=== PATIENT | female | born 1940 | race Caucasian/White ===

== ENCOUNTER 2023-01-05 11:31 | Outpatient (OUT) | payer MEDICARE, SELFPAY ==
--- NOTE | 2023-01-05 11:46 | CT_ITS ---
[address] [address] Patient Name: CUATE GOODMAN MRN: [id number] date: 1940 Sex: F Assigned Patient Location: LAB Current Patient Location: LAB Accession/Order Number: [id number] Exam Date: 01/05/2023 13:00 Report Date: 01/05/2023 15:45 At the request of: JASON MORALES Procedure: CT abdomen pelvis w con EXAMINATION: CT abdomen pelvis w con HISTORY: Intra-abdominal and pelvic swelling, mass and lump R19.00 ; palpable lump above right iliac crest for one week COMPARISON: No relevant comparison available. TECHNIQUE: Axial, Coronal, and Sagittal images were obtained without and/or with IV contrast as indicated by examination type. Dose reduction techniques were achieved by using automated exposure control and/or adjustment of mA and/or kV according to patient size and/or use of iterative reconstruction technique. FINDINGS: LUNG BASES: Bilateral pleural effusions 0.9 cm in thickness on right, 1.7 cm on left. Small amount of pericardial fluid. LIVER: No enlargement, atrophy, suspicious density, or significant focal lesion. BILIARY: Cholecystectomy. PANCREAS: No lesion, fluid collection, or abnormal duct dilatation. SPLEEN: No enlargement or focal lesion. ADRENALS: No mass or enlargement. KIDNEYS: Absent right kidney. Nonobstructing 12 x 8 x 5 mm stone within left kidney. BOWEL/MESENTERY: Marked diverticulosis of descending and sigmoid colon without acute inflammatory changes. No visible mass, obstruction, or bowel wall thickening. AORTA/VASCULAR: No aneurysm or dissection. Filter within the IVC. RETROPERITONEUM: No mass or adenopathy. LYMPH NODES: No adenopathy. URINARY BLADDER: No visible focal wall thickening, lesion, or calculus. PELVIC ORGANS: No visible mass. Pelvic organs appropriate for patient age. ABDOMINAL WALL: No mass or hernia. Skin surface marker localizing the patient's palpable lump to the posterior lateral right abdominal wall/flank; no appreciable mass or lipoma. BONES: Right hip replacement. 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 OTHER: Negative. IMPRESSION: 1.Patient's palpable lump appears to correspond to an area of greater fat within the posterior lateral right abdominal wall/flank. No mass, hernia, fluid collection. 2.Bilateral pleural effusions and small pericardial effusion of uncertain etiology. 3. Nonobstructing left nephrolithiasis. Absent right kidney. 4. Marked diverticulosis of distal colon. 5. Marked degenerative joint disease of the left hip. Electronically authenticated by: EYAD FREITAS Date: 01/05/2023 15:45
[2023-01-05 11:51] LABS: BUN Creatinine Ratio 16.7; Calcium 9.4 mg/dL (8.5-10.1); Carbon Dioxide 33.2 mmol/L (21.0-32.0); Chloride 102 mmol/L (98-107); Estimated GFR (African America >60 (>=60); Estimated GFR (Non-African Ame >60 (>=60); Glucose 101 mg/dL (74-106); Potassium 4.2 mmol/L (3.5-5.1); Sodium 141 mmol/L (136-145)
== END 2023-01-05 11:32 ==
LOC: LAB 11:31
PROVIDERS: PCP Family Medicine; Visit Provider Family Medicine
DX: R19.00 Intra-abdominal and pelvic swelling, mass and lump, unspecified site (principal); J90 Pleural effusion, not elsewhere classified; I31.39 Other pericardial effusion (noninflammatory); N20.0 Calculus of kidney; Z90.5 Acquired absence of kidney; K57.30 Diverticulosis of large intestine without perforation or abscess without bleeding; M16.12 Unilateral primary osteoarthritis, left hip
CPT/HCPCS: 36415; 74177; 80048; Q9967

== ENCOUNTER 2023-12-29 09:16 | Outpatient (OUT) | payer MEDICARE, SELFPAY ==
--- NOTE | 2023-12-29 09:26 | CA_ITS ---
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 DESCRIPTION: COMPLETE ECHOCARDIOGRAM Real-time transthoracic echocardiography with 2D, M-mode, spectral and color flow Doppler performed. QUALITY: Technical quality was adequate. LEFT VENTRICLE: Normal chamber size. Moderate concentric left ventricular hypertrophy. LV EF: Lower limits of normal left ventricular ejection fraction, (50%). DIASTOLIC: Diastolic function is indeterminate. ATRIAL SEPTUM: LEFT ATRIUM: Normal chamber size. RIGHT ATRIUM: Mild dilatation. RIGHT VENTRICLE: Normal chamber size. Normal right ventricular systolic function. TRICUSPID VALVE: Normal mobility and thickness. No stenosis with trivial regurgitation. Unable to assess right-sided pressures due to lack of measurable tricuspid regurgitation. MITRAL VALVE: Mildly thickened with normal mobility. No evidence of mitral valve stenosis. Mild mitral annular calcification. Mild mitral regurgitation. AORTIC VALVE: Grossly normal. Normal leaflet mobility. No evidence of aortic valve stenosis. No aortic regurgitation. AORTIC ROOT: Normal diameter and appearance, measuring 3.6 cm. The ascending aorta is mildly to moderately dilated measuring 4.0 cm. PULMONIC VALVE: Normal thickness and mobility. No stenosis. No regurgitation. PERICARDIUM: No evidence of pericardial effusion. IVC: Collapses with inspirations. Normal size PLEURA: CONCLUSION: 1. Moderate concentric left ventricular hypertrophy with low normal systolic function. LVEF is estimated at 50%. 2. Normal right ventricular size and systolic function. 3. No significant valvular dysfunction. 4. Mild to moderate dilatation of the ascending aorta measuring 4.0 cm. Adult Echocardiography Procedure Report Left Ventricle LVEDD (3.7 - 5.6 cm): 3.95 cm LVESD (2.2 - 4.0 cm): 2.89 cm LVIVS thickness (0.6 - 1.2 cm): 1.42 cm LVPW thickness (0.5 - 1.0 cm): 1.44 cm e': 0.05 m/s E - e': 10.80 LVOT Max Gradient: 1.54 mm[Hg] LVOT Area (cm2): 0.62 m/s Peak Velocity (LVOT): 0.62 m/s Mean Velocity (LVOT): 0.48 m/s LVOT Diameter 2.40 cm Left Ventricular Ejection Fraction: 50 % Left Atrium LA Volume Index (2D A2C): 26.16 ml/m2 Left Atrium Systolic Dimension: 3.70 cm Mitral Valve MV E to A Ratio: 0.63 Mitral Valve A-Wave Peak Velocity: 0.79 m/s Mitral Valve E-Wave Peak Velocity: 0.50 m/s Right Ventricle RV Internal Diastolic Dimension: 4.38 cm Aorta AO Root Diam: 3.56 cm Ascending Ao Diam: 3.96 cm Aortic Valve AoV Area (Peak Bill): 2.09 cm2, 2.20 cm2 AoV Area (VTI): 2.10 cm2, 2.19 cm2 Peak Velocity(Antegrade Flow): 1.27 m/s, 1.40 m/s Peak Gradient(Antegrade Flow): 6.49 mm[Hg], 7.87 mm[Hg] Mean Velocity(Antegrade Flow): 0.91 m/s, 0.99 m/s Mean Gradient(Antegrade Flow): 3.81 mm[Hg], 4.48 mm[Hg] Velocity Time Integral: 23.25 cm, 25.22 cm Tricuspid Valve Peak Velocity (Regurgitant Flow): 1.56 m/s, 1.65 m/s Pulmonic Valve Mean Gradient: 1.12 mm[Hg], 1.38 mm[Hg], 2.19 mm[Hg] Mean Velocity: 0.49 m/s, 0.57 m/s, 0.72 m/s Peak Velocity: 0.77 m/s Peak Gradient: 2.05 mm[Hg], 2.05 mm[Hg], 3.05 mm[Hg] Right Atrium Right Atrium Systolic Pressure: 49.93 ml, 49.93 ml Dictated by: Andrew Champion M.D. on 12/29/2023 at 18:28 Approved by: Andrew Champion M.D. on 12/29/2023 at 18:33
== END 2023-12-29 09:17 | disposition home or self-care (01) ==
PROVIDERS: PCP Family Medicine; Visit Provider Internal Medicine Cardiovascular Disease
DX: I71.21 Aneurysm of the ascending aorta, without rupture (principal)
CPT/HCPCS: 93306

== ENCOUNTER 2024-04-05 10:16 | Outpatient (OUT) | payer MEDICARE, SELFPAY ==
--- NOTE | 2024-04-05 | XR_ITS ---
The [address] [address] Patient Name: CUATE GOODMAN MRN: [id number] date: 1940 Sex: F Assigned Patient Location: [facility] Current Patient Location: [facility] Accession/Order Number: [id number] Exam Date: 04/05/2024 10:35 Report Date: 04/05/2024 13:23 At the request of: JASON MORALES Procedure: XR DEXA axial skeleton EXAMINATION: XR DEXA axial skeleton, 04/05/2024 10:35 AM EDT HISTORY: asymptamatic menopausal state COMPARISON: [place] 8 TECHNIQUE: Dual-energy X-ray absorptiometry (DEXA) bone density study performed for the axial skeleton. HISTORY: asymptamatic menopausal state FINDINGS: Bone mineral density of the AP spine L1-L4 measures 1.169 g/sq cm. T score -0.1. Normal Lowest bone mineral densities in the left forearm radius measuring 0.45 g/sq cm. T score -4.0. Osteoporosis XR/XR DEXA axial skeleton IMPRESSION: Osteoporosis. High fracture risk Pharmacologic treatment recommendations * No uniform recommendation applies to all patients. Management plans must be individualized. * Consider initiating pharmacologic treatment in postmenopausal women and men >= 50 years of age who have the following: Primary fracture prevention: * T-score <= - 2.5 at the femoral neck, total hip, lumbar spine, 33% radius (some uncertainty with existing data) by DXA. * Low bone mass (osteopenia: T-score between - 1.0 and - 2.5) at the femoral neck or total hip by DXA with a 10-year hip fracture risk >= 3% or a 10-year major osteoporosis-related fracture risk >= 20% (i.e., clinical vertebral, hip, forearm, or proximal humerus) based on the [place]-adapted FRAXregistered model. Secondary fracture prevention: * Fracture of the hip or vertebra regardless of BMD [4, 5]. * Fracture of proximal humerus, pelvis, or distal forearm in persons with low bone mass (osteopenia: T-score between - 1.0 and - 2.5). The decision to treat should be individualized in persons with a fracture of the proximal humerus, pelvis, or distal forearm who do not have osteopenia or low BMD [12, 13]. Mariza MS, Khanh SL, Paulo KL, Tao EM, Funmilayo KG, Lynch AJ, Mac ES. The clinician's guide to prevention and treatment of osteoporosis. Osteoporos Int. 2021;33(10):4453-1665. doi: 10.1007/l40648-258-67982-q. Epub 2021Nov 13. Erratum in: Osteoporos Int. 2021Feb 12;: PMID: [id number]; PMCID: [id number]. Electronically authenticated by: KIMBER MALLOY Date: 04/05/2024 13:23
== END 2024-04-05 10:17 | disposition home or self-care (01) ==
LOC: RAD 10:16
PROVIDERS: PCP Family Medicine; Visit Provider Family Medicine
DX: M81.0 Age-related osteoporosis without current pathological fracture (principal); Z78.0 Asymptomatic menopausal state
CPT/HCPCS: 77080

== ENCOUNTER 2024-05-01 17:46 | Observation (INO) | payer MEDICARE, SELFPAY ==
[2024-05-01] VITALS (14 sets, daily range): BP systolic 122–154; BP diastolic 73–94; PULSE 79–94; TEMP 36.6–36.8; O2SAT 91–98; BMI 26.9; BMI 41.5
--- NOTE | 2024-05-01 17:53 | ECG_ITS ---
The [facility] Test Date: 2024-05-01 Pat Name: CUATE GOODMAN Department: Room: - Gender: Female [employer]: : 1940 Requested By: JASON MORALES Order Number: [id number] Reading MD: RADHA NATHAN Measurements Intervals [place] Rate: 88 P: -6 AR: 198 QRS: 54 QRSD: 140 T: 36 QT: 408 QTc: 453 Interpretive Statements 1100 Sinus rhythm 1470 with occasional supraventricular premature complexes 1574 with frequent ventricular premature complexes 2450 Right bundle branch block 9150 abnormal ECG Compared to ECG 11/09/2022 06:31:59 Ventricular premature complex(es) now present Electronically Signed On 05-01-2024 22:46:31 EDT by RADHA NATHAN
--- NOTE | 2024-05-01 17:53 | XR_ITS ---
The [address] [address] Patient Name: CUATE GOODMAN MRN: [id number] date: 1940 Sex: F Assigned Patient Location: ER Current Patient Location: ED.MAIN Accession/Order Number: [id number] Exam Date: 05/01/2024 18:13 Report Date: 05/01/2024 19:04 At the request of: YUMIKO LUIS Procedure: XR chest 1V EXAM: XR chest 1V at 1805 hours HISTORY: chest pain COMPARISON: 01/20/2024 TECHNIQUE: AP upright portable chest x-ray FINDINGS: The heart is not enlarged, in part due to improved depth of inspiration. There is mild prominence of the central pulmonary vasculature. There is been interval clearing of the left lung base. No acute infiltrate, effusion or pneumothorax is identified. The osseous structures are grossly intact. XR/XR chest 1V IMPRESSION: Interval clearing of the left lung base, and there is no evidence of an acute infiltrate or cardiac decompensation. Electronically authenticated by: OLIVIA CHILDRESS Date: 05/01/2024 19:04
--- NOTE | 2024-05-01 18:02 | PC.NURSE ---
pt states had chest pain substernal, radiated to jaw that felt like pressure. pt states chest pain has now resolved and has no pain.
[2024-05-01 18:07] LABS: Basophils Absolute Auto 0.1 10^3/uL (0.0-0.1); Basophils Percent Auto 0.9 % (0.2-2.0); Eosinophils Absolute Auto 0.1 10^3/uL (0.0-0.7); Eosinophils Percent Auto 1.9 % (0.9-7.0); Hematocrit 39.9 % (36.0-48.0); Hemoglobin 12.5 g/dL (12.0-16.0); Immature Granulocytes Abs Auto 0.01 10^3/uL (0.00-0.03); Immature Granulocytes Pct Auto 0.2 % (0.0-0.5); Lymphocytes Absolute Auto 1.8 10^3/uL (1.2-3.8); Lymphocytes Percent Auto 31.3 % (20.5-60.0); Mean Corpuscular HGB Conc 31.3 g/dL (29.9-35.2); Mean Corpuscular Hemoglobin 30.4 pg (26.7-34.0); Mean Corpuscular Volume 97.1 fL (81.0-99.0); Mean Platelet Volume 9.8 fL (9.5-13.5); Monocytes Absolute Auto 0.6 10^3/uL (0.3-0.8); Monocytes Percent Auto 10.6 % (1.7-12.0); Neutrophils Absolute Auto 3.2 10^3/uL (1.4-6.5); Neutrophils Percent Auto 55.1 % (43.0-75.0); Platelet Count 298 10^3/uL (150-450); Red Blood Count 4.11 10^6/uL (4.20-5.40); Red Cell Distribution Width 14.2 % (11.0-15.0); White Blood Count 5.9 10^3/uL (4.0-11.0)
--- NOTE | 2024-05-01 18:08 | ED_ITS ---
HPI - Chest Pain General Chief Complaint: Chest Pain Stated Complaint: Chest Pain Time Seen by Provider: 05/01/24 17:53 Source: patient Mode of arrival: ambulance Limitations: no limitations History of Present Illness HPI narrative: 83-year-old female to the emergency department chief complaint of chest pain. Patient reports that approximately an hour prior to arrival she developed some chest pain while seated and sewing. She reports that it was a difficult to describe pain in her chest that radiated into her left-sided jaw. She has never had anything like this before. She rates it a 8 out of 10. There was no provoking or palliating features. No nausea or vomiting. No abdominal pain. She did feel mildly short of breath during the episode. She denies any cardiac history. She reports a history of pulmonary embolism 2 years ago for which she takes Eliquis. She has not had a stress test or cardiac catheterization. She received aspirin from EMS. She reports that the symptoms resolved prior to arrival. Related Data Home Medications ?Medication ?Instructions ?Recorded ?Confirmed allopurinol 100 mg tablet 100 mg PO DAILY 05/01/24 05/01/24 apixaban 5 mg tablet (Eliquis) 5 mg PO Q12H 05/01/24 05/01/24 ferrous sulfate 325 mg (65 mg mg 05/01/24 iron) tablet (FeroSul) magnesium oxide 400 mg (241.3 mg 400 mg PO QDAY 05/01/24 05/01/24 magnesium) tablet omeprazole 20 mg capsule,delayed 20 mg PO .daily 05/01/24 05/01/24 release tolterodine 4 mg capsule,extended 4 mg PO Q24H 05/01/24 05/01/24 release 24 hr Allergies Allergy/AdvReac Type Severity Reaction Status Date / Time mophine AdvReac Severe Nausea Uncoded 05/01/24 17:53 Review of Systems ROS Status of ROS 10 or more systems reviewed and unremark able except as noted in history and below PFSH PFSH Social History Little interest or pleasure in doing things: not at all Feeling down, depressed, or hopeless: not at all Exam Narrative Exam Narrative: VITALS: I have reviewed the triage vital signs. GENERAL: Elderly female in no acute distress NEURO: Alert and oriented. Moves all extremities. Face is symmetric and expressive. EYES: PERRL. No scleral icterus or conjunctival injection. No discharge. HENT: Normocephalic, atraumatic. Hearing is grossly intact. Nares grossly patent and without discharge. Mucous membranes moist. NECK: No JVD. Patient moves neck without restriction. CARDIO: Rhythm regular. Normal rate. No murmur, rub, or gallop. Pulses equal bilaterally in the upper and lower extremity. No lower extremity edema. PULM: Lungs clear to auscultation in all [place]. No wheezes, rales, or rhonchi. No conversational dyspnea. No splinting, stridor, or accessory muscle use. GI/: Abdomen is soft and non-tender. Normoactive bowel sounds. EXTREMITIES: Symmetric muscle bulk. No joint swelling. No clubbing, cyanosis, or deformity. SKIN: Warm and dry. Normal turgor. No rash or lesions appreciated. PSYCH: Mood, affect, and interaction is appropriate to the setting. Constitutional Vital Signs, click to edit/add: Last Vital Signs Temp 98.2 F 05/01/24 17:49 Pulse 79 05/01/24 18:30 Resp 16 05/01/24 18:30 BP 144/85 H 05/01/24 18:30 Pulse Ox 94 L 05/01/24 18:30 O2 Del Method Room Air 05/01/24 17:49 Course Vital Signs Vital signs: Vital Signs Temperature 98.2 F 05/01/24 17:49 Pulse Rate 88 05/01/24 17:49 Respiratory Rate 18 05/01/24 17:49 Blood Pressure 154/94 H 05/01/24 17:49 Pulse Oximetry 98 05/01/24 17:49 Oxygen Delivery Method Room Air 05/01/24 17:49 Temperature 98.2 F 05/01/24 17:49 Pulse Rate 79 05/01/24 18:30 Respiratory Rate 16 05/01/24 18:30 Blood Pressure 144/85 H 05/01/24 18:30 Pulse Oximetry 94 L 05/01/24 18:30 Oxygen Delivery Method Room Air 05/01/24 17:49 MDM - Chest Pain MDM Narrative Medical decision making narrative: 83-year-old female to the emergency department with chief complaint of chest pain. Vital stable, the patient is afebrile. She is currently asymptomatic. Cardiac workup is initiated. Patient agrees with this plan. EKG without evidence of ischemia. Her initial troponin is negative. Care was signed out to Dr. Quintana. Heart Score for Major Cardiac Event History: Example factors for history - pattern of chest pain, onset, duration, relation with exercise, stress or cold, localization, concomitant symptoms. reaction to sublingual nitrates, [] Highly suspicious +2 [x] Moderately suspicious +1 [] Slightly suspicious 0 EKG: [] Significant ST-Depression +2 [x] Non specific repolarization disturbance +1 [] Normal 0 Age: [x] >= 65 +2 [] 45-65 + 1 [] <45 0 Risk Factors: (HLD, HTN, DM, Cigarette Smoking, Pos Family Hx, Obesity) [x] >3 risk factors or hx of atherosclerotic disease + 2 [] 1-2 risk factors + 1 [] No risk factors known 0 Troponin: [] >= 3X normal + 2 [] 1-3X normal + 1 x <= Normal 0 [] 0-3 Points 0.9 - 1.7% risk of major adverse cardiac event in 6 weeks [x] 4-6 Points 12-16.6% risk of major adverse cardiac event in 6 weeks [] 7-10 Points 50-65% risk of major adverse cardiac event in 6 weeks [] 0-3 Points with 2 sets of negative cardiac markers <1% risk of major adverse cardiac event in 30 days. Medical Records Data Attestation: I reviewed the patient's medical records. Lab Data Attestation: I reviewed the patient's lab results. Labs: Lab Results 05/01/24 Range/Units 17:56 WBC 5.9 (4.0-11.0) 10^3/uL RBC 4.11 L (4.20-5.40) 10^6/uL Hgb 12.5 (12.0-16.0) g/dL Hct 39.9 (36.0-48.0) % MCV 97.1 (81.0-99.0) fL MCH 30.4 (26.7-34.0) pg MCHC 31.3 (29.9-35.2) g/dL RDW 14.2 (11.0-15.0) % Plt Count 298 (150-450) 10^3/uL MPV 9.8 (9.5-13.5) fL Neut % (Auto) 55.1 (43.0-75.0) % Lymph % (Auto) 31.3 (20.5-60.0) % [place] % (Auto) 10.6 (1.7-12.0) % Eos % (Auto) 1.9 (0.9-7.0) % Baso % (Auto) 0.9 (0.2-2.0) % Neut # (Auto) 3.2 (1.4-6.5) 10^3/uL Lymph # (Auto) 1.8 (1.2-3.8) 10^3/uL [place] # (Auto) 0.6 (0.3-0.8) 10^3/uL Eos # (Auto) 0.1 (0.0-0.7) 10^3/uL Baso # (Auto) 0.1 (0.0-0.1) 10^3/uL Abs Immat Gran (auto) 0.01 (0.00-0.03) 10^3/uL Imm/Tot Granulo (auto) 0.2 (0.0-0.5) % PT 11.7 H (9.0-11.6) sec INR 1.12 APTT 29.1 (22.3-36.2) sec Sodium 139 (136-145) mmol/L Potassium 4.0 (3.5-5.1) mmol/L Chloride 104 (98-107) mmol/L Carbon Dioxide 28.0 (21.0-32.0) mmol/L Anion Gap 11.0 BUN 18.0 (7.0-18.0) mg/dL Creatinine 1.04 H (0.55-1.02) mg/dL Est GFR ( Amer) >60 (>=60 mL/min/1.73m^2) Est GFR (Non-Af Amer) 51 L (>=60 mL/min/1.73m^2) BUN/Creatinine Ratio 17.3 Glucose 103 (74-106) mg/dL Calcium 9.9 (8.5-10.1) mg/dL Total Bilirubin 0.2 (0.2-1.0) mg/dL AST 16 (15-37) U/L ALT 9 L (14-59) U/L Alkaline Phosphatase 120 H (46-116) U/L Troponin I High Sens 9.6 (4.0-51.3) pg/mL Total Protein 7.5 (6.4-8.2) g/dL Albumin 3.2 L (3.4-5.0) g/dL Globulin 4.3 g/dL Albumin/Globulin Ratio 0.7 ECG Data Attestation: I personally reviewed and interpreted this ECG as follows: (Normal sinus rhythm at a rate of 88. Right bundle branch block. No STEMI. Normal QTc) Discharge Plan Discharge Chief Complaint: Chest Pain Clinical Impression: Chest pain Patient Disposition: Still a Patient Prescriptions / Home Meds: No Action Eliquis 5 mg tablet 5 mg PO Q12H allopurinol 100 mg tablet 100 mg PO DAILY magnesium oxide 400 mg (241.3 mg magnesium) tablet 400 mg PO QDAY ferrous sulfate [FeroSul] 325 mg (65 mg iron) tablet omeprazole 20 mg capsule,delayed release(DR/EC) 20 mg PO .daily tolterodine 4 mg capsule,extended release 24hr 4 mg PO Q24H Print Language: Afghan Referrals: JASON MORALES DO [Primary Care Provider] - 1 week
--- OUTSIDE RECORDS SUMMARY | 2024-05-01 18:09 | XMS_ITS | CCD ---
Author Organization [facility] Care Team Providers Care Filer Finish Name Role Phone DR TIAN KUHN Primary Care Unavailable CUAUHTEMOC ., RIYA Attending Unavailable CUAUHTEMOC ., RIYA Admitting Unavailable WEST, DR KIMBER Lopez Consulting Unavailable ZIEBER, DR EYAD Hines Consulting Unavailable HAY ., DR STERN Consulting Unavailable KATKOSINDY Consulting Unavailable CUAUHTEMOC ., RIYA Consulting Unavailable KUHN, DR TIAN Krause Primary Care Unavailable KUHNTIAN Referring Unavailable KUHNTIAN HERRERA Primary Care Unavailable KUHNTIAN Referring Unavailable KUHNTIAN Primary Care Unavailable KUHNTIAN Referring Unavailable KUHNTIAN Primary Care Unavailable JR. BOO GEORGE C Attending Unavaila meagan BOO JR., GEORGE C Referring Unavaila meagan Boo Jr., DO, George Primary Care Provider Rajeev Arriaga DO, George Primary Care Provider CEFERINO QUIÑONEZ Attending Unavailable Kuhn Tian CIFUENTES Primary Care Provider [phone] Kuhn Tian CIFUENTES Primary Care Provider [phone] REBECCA, MOHAN Admitting Unavailable REBECCAROBERTAN Attending Unavailable REBECCA, MOHAN Referring Unavailable CONSULT, INFECTIOUS DISEASE Consulting Unav ailable TIAN KUHN Primary Care Unavailable TRUMAN BOO JR. Referring Unavailable TRUMAN BOO JR. Primary Care Unavailable ERIK HEREDIA Attending Unavailable PAIGE DAMON Attending Unavailable AVE MACKEY Referring Unavailable KUHN, TIAN Primary Care Unavailable SELF, SELF Referring Unavailable PAIGE DAMON Attending Unavailable KUHN, TIAN Primary Care Unavailable PAIGE DAMON Referring Unavailable PAIGE DAMON Attending Unavailable KUHN, TIAN Primary Care Unavailable SELF, SELF Referring Unavailable PAIGE DAMON Attending Unavailable KUHN TIAN Primary Care Unavailable PAIGE DAMON Attending Unavailable PAIGE DAMON Referring Unavailable KUHN, TIAN Primary Care Unavailable PAIGE DAMON Attending Unavailable PAIGE DAMON Referring Unavailable KUHN, TIAN Primary Care Unavailable GIOVANNYABHI Attending Unavailable ERIK HEREDIA Referring Unavailable KUHN, TIAN Primary Care Unavailable RAJEEV TRUMAN Alfonso [facility] Care Unavailable YAN, ERIK Referring Unavailable ERIK HEREDIA Attending Unavailable KUHN, TIAN Primary Care Unavailable ERIK HEREDIA Referring Unavailable ERIK HEREDIA Attending Unavailable ERIK HEREDIA Admitting Unavailable Allergies Allergy Classification Reported Allergen(s) Allergy Type Date of Onset Reaction(s) Facility (4 sources) Morphine; 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: [MORPHINE] Drug Allergy 7 [facility] (12 sources) oxyCODONE; 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: [OXYCODONE] Drug Allergy 7 Nausea and Vomiting [facility] (11 sources) Morphine Drug Allergy 7 Nausea and Vomiting [facility] (11 sources) Penicillins Propensity to adverse reactions to drug 4 [facility] Medications Current Medications Medication Drug Class(es) Dates Sig (Normalized) Sig (Original) acetaminophen 325 mg oral tablet (16 sources) Start: 01-11-2024 take 2 tablets by mouth every four hours as needed Acetaminophen 325 MG tablet Take 2 tablets by mouth every 4 hours as needed for Mild Pain. 50 tablet 1 01/11/2024 Active Start: 01-11-2024 End: 02-11-2024 take 650 mg by mouth every four hours as needed End: 01-11-2024 Acetaminophen (TYLENOL 8 RONALDO R ARTHRITIS PAIN PO) Take by mouth. 01/11/2024 Discontinued (Stop Taking at Discharge) Acetaminophen (T YLENOL 8 HOUR ARTHRITIS PAIN PO) Take by mouth. Active cholecalciferol 0.025 mg oral capsule (12 sources) Vitamin D Cholecalciferol (Vitamin D-3) 25 MCG (1000 UT) capsule Take by mouth. Active clarithromycin 500 mg oral tablet (2 sources) Macrolide Antimicrobial Start: 024 End: 025 take 1 tablet by mouth every hour clarithromycin 500 MG tablet Take 1 tab by mouth 1 hour prior to dental procedures 2 tablet 1 02/02/2024 02/01/2025 Active docusate sodium 100 mg oral capsule (15 sources) Start: End: take 1 capsule by mouth twice daily Docusate 100 MG capsule Take 1 capsule by mouth 2 times daily. 60 capsule 01/11/2024 Active ferrous sulfate 325 mg oral tablet (9 sources) Start: take 1 tablet by mouth once daily ferrous sulfate 325 (65 Fe) MG tablet Take 1 tablet by mouth daily. 90 tablet 02/11/2024 Active Start: 01-21-2024 End: 02-11-2024 magnesium oxide 400 mg oral tablet (12 sources) Start: 10-02-2023 take 1 tablet by mouth twice daily magnesium oxide 400 (240 Mg) MG Take 1 tablet by mouth 2 times daily. 10/02/2023 Active Multiple Vitamin (multivitamin) tablet (9 sources) take 1 tablet by mouth once daily Multiple Vitamin (multivitamin) tablet Take 1 tablet by mouth daily. Suspended take 1 tablet by mouth once kayden y Multiple Vitamin (multivitamin) tablet Take 1 tablet by mouth daily. Active omeprazole 20 mg delayed release oral capsule (12 sources) Proton Pump Inhibitor Start: 10-02-2023 omeprazo le [address] capsule 1 capsule daily. qam 10/02/2023 Active 24 hr tolterodine tartrate 4 mg extended release oral capsule (17 sources) Cholinergic Muscarinic Antagonist Start: 01-12-2024 End: 02-11-2024 Start: 10-02-2023 End: 02-10-2024 take 1 capsule by mouth once daily tolterodine 4 MG Cap SR 24HR Take 1 capsule by mouth daily. 30 capsule 02/10/2024 Active Start: 10-02-2023 tolterodine 4 MG Cap SR 24HR 1 capsule. 10/02/2023 Active vitamin b12 1 mg oral tablet (12 sources) Vitamin B12 cyanocobalamin 1 000 MCG tablet Take 5 tablets by mouth. Active Completed/Discontinued Medications Medication Drug Class(es) Dates Sig (Normalized) Sig (Original) acetaminophen 325 mg / HYDROcodone bitartrate 5 mg oral tablet (16 sources) Opioid Agonist Start: 01-11-2024 End: 01-19-2024 take 1-2 tablets by mouth every four hours as needed 1-2 tablet, Oral, EVERY 4 HOURS NEEDED, Starting on Maggie 24 at 1029, Until Wed01/19/24 at 1423, Severe Pain, Post-op/Post-Proc Start: 01-11-2024 End: 02-11-2024 take 1 tablet by mouth once daily as needed hydroCODone-acetaminophen 5-325 MG table t Indications: Acute postoperative pain of left hip Take 1-2 tablets by mouth every 6 hours as needed for up to 7 days. Do not take over 4000mg acetaminophen daily. 30 tablet 01/11/2024 Active allopurinol 100 mg oral tablet (15 sources) Xanthine Oxidase Inhibitor Start: 01-12-2024 End: 02-11-2024 apixaban 5 mg oral tablet (17 sources) Factor Xa Inhibitor Start: 01-11-2024 End: 01-17-2024 take 2.5 mg by mouth every twelve hours in the morning 2.5 mg, Oral, EVERY 12 HOURS, First dose on Wed01/12/24 at 0900, Until Discontinued, Start in AM day after surgery, Indications: Venous Thromboembolis m, Post-op/Post-P huber Start: 10-02-2023 End: 02-11-2024 take 1 tablet by mouth every twelve hours Eliquis 5 MG tablet Take 1 tablet by mouth every 12 hours. 10/02/2023 Active betamethasone 0.5 mg/ml / clotrimazole 10 mg/ml topical cream (2 sources) Azole Antifungal, Corticosteroid Start: 02-09-2024 End: 02-11-2024 bifidobacterium animalis [id number] unt / lactobacillus acidophilus [id number] unt oral capsule (2 sources) Start: 01-22-2024 End: 01-30-2024 bisacodyl 10 mg rectal suppository (3 sources) Stimulant Laxative Start: 01-11-2024 End: 02-11-2024 ceFAZolin 2000 mg injection (1 source) Cephalosporin Antibacterial Start: 01-11-2024 End: 01-17-2024 take 2 g intravenously every eight hours 2 g, Intravenous, Administer over 30 Minutes, EVERY 8 HOURS NON-STANDARD, 19 doses, First dose on Wed01/11/24 at 2300, Last dose on Wed01/17/24 at 2300, Post-op/Post-Proc celecoxib 200 mg oral capsule (1 source) Nonsteroidal Anti-inflammatory Drug Start: 01-11-2024 End: 01-11-2024 take 1 dose by mouth every two hours 200 mg, Oral, ONCE DIRECTED, 1 dose, Starting on Wed01/11/24 at 1141, Until Wed01/11/24 at 1209, See admin instructions, Administer 2 hours preop., Pre-op/Pre-Proc cephalexin 500 mg oral capsule (1 source) Cephalosporin Antibacterial Start: 01-11-2024 End: 01-18-2024 take 1 capsule by mouth every eight hours cephALEXin 500 MG capsule Take 1 capsule by mouth every 8 hours for 7 days. 21 capsule 01/11/2024 01/18/2024 chlorhexidine gluconate 40 mg/ml medicated liquid soap (1 source) Start: 12-17-2023 End: 01-19-2024 Chlorhexidine Gluconate 4 % Solution Indications: Arthralgia, unspecified joint Apply 1 Application topically daily as needed. From the neck down for 5 days 236 mL 12/17/2023 01/19/2024 Discontinued (Stop Taking at Discharge) cyclobenzaprine hydrochloride 10 mg oral tablet (5 sources) Muscle Relaxant Start: 01-12-2024 End: 02-11-2024 dexamethasone phosphate 10 mg/ml injectable solution (1 source) Corticosteroid Start: 01-12-2024 End: 01-12-2024 take 10 mg intravenously every twenty-four hours 10 mg, Intravenous, EVERY 24 HOURS, 1 dose, First dose on Wed01/12/24 at 1700, 24 hours post op, Post-op/Post-Proc Start: 01-12-2024 End: 01-12-2024 take 10 mg intravenously every twenty-four hours 10 mg, Intravenous, EVERY 24 HOURS, 1 dose, First dose on Wed01/12/24 at 1700, 24 hours post op, Post-op/Post-Proc docusate sodium 50 mg / [facility] 8.6 mg oral tablet (5 sources) Start: 01-19-2024 End: 02-11-2024 Start: 01-11-2024 End: 01-19-2024 take 2 tablets by mouth twice daily as needed for constipation 2 tablet, Oral, 2 TIMES DAILY NEEDED, Starting on Wed01/11/24 at 1831, Until Wed01/19/24 at 1423, constipation, Post-op/Post-Proc 1 ml HYDROmorphone hydrochloride 1 mg/ml cartridge (1 source) Opioid Agonist Start: 01-11-2024 End: 01-19-2024 take 0.5 mg intravenously every four hours as needed 0.5 mg, Intravenous, EVERY 4 HOURS NEEDED, Starting on Wed01/11/24 at 1831, Until Wed01/19/24 at 1423, Severe Pain, Post-op/Post-Proc lactulose 667 mg/ml oral solution (2 sources) Osmotic Laxative Start: 01-21-2024 End: 02-11-2024 linezolid 600 mg oral tablet (2 sources) Oxazolidinone Antibacterial Start: 01-21-2024 End: 01-27-2024 lisinopril 5 mg oral tablet (2 sources) Angiotensin Converting Enzyme Inhibitor Start: 01-30-2024 End: 02-11-2024 loratadine 10 mg oral tablet (3 sources) Start: 01-19-2024 End: 01-22-2024 mupirocin 0.02 mg/mg topical ointment (5 sources) RNA Synthetase Inhibitor Antibacterial Start: 01-23-2024 End: 01-28-2024 Start: 12-17-2023 End: 01-19-2024 apply 15 g nasal route twice daily Mupirocin 2 % ointment Indications: Arthralgia, unspecified joint Each nostril BID x 5 days 15 g 12/17/2023 01/19/2024 Discontinued (Stop Taking at Discharge) nystatin [id number] unt/ml topic al cream (8 sources) Polyene Antifungal Start: 02-05-2024 End: 02-09-2024 Start: 01-31-2024 End: 02-03-2024 Start: 01-26-2024 End: 01-31-2024 ondansetron 4 mg disintegrating oral tablet (5 sources) Serotonin-3 Receptor Antagonist Start: 02-05-2024 End: 02-11-2024 take 4 mg by mouth every four hours as needed Start: 01-23-2024 End: 02-05-2024 take 4 mg by mouth every four hours as needed Start: 01-11-2024 End: 01-19-2024 take 4 mg intravenously every four hours as needed 4 mg, Intravenous, EVERY 4 HOURS NEEDED, Starting on Wed01/11/24 at 1831, Until Wed01/19/24 at 1423, Nausea / Vomiting, Post-op/Post-Proc pantoprazole 40 mg delayed release oral tablet (5 sources) Proton Pump Inhibitor Start: 01-12-2024 End: 02-11-2024 polyethylene glycol 3350 [id number] mg powder for oral solution (6 sources) Osmotic Laxative Start: 01-21-2024 End: 02-11-2024 microencapsulated potassium chloride 20 meq extended release oral tablet (1 source) Start: 01-17-2024 End: 01-17-2024 20 mEq, Oral, ONCE, 1 dose, On Wed01/17/24 at 1800, Swallow tablets whole; do not crush, chew, or suck on tablet. Tablet may also be broken in half and each half swallowed separately. povidone-iodine 100 mg/ml medicated pad (2 sources) Antiseptic Start: 02-03-2024 End: 02-11-2024 ROPivacaine (NAROPIN) 1 % 400 mg, EPINEPHrine PF (ADRENALIN) 1 MG/ML 1 mg, Ketorolac (TORADOL) 30 MG/ML 30 mg, cloNIDine 100 MCG/ML 206 mcg, Sodium chloride 0.9% 45 mL in viaflex container 1 Each 89.06 mL (total volume) (1 source) Start: 01-11-2024 End: 01-11-2024 take 1 dose intravenously once Intra-articul ar, INTRA-OP ONCE, 1 dose, Starting on Wed01/11/24 at 1428, Until Wed01/11/24 at 1611, 89.06 mL, To be mixed by pharmacy NOT for IV use, Intra-op/Intr a-Proc 1000 ml sodium chloride 9 mg/ml injection (1 source) Start: 01-11-2024 End: 01-19-2024 Intravenous, at 75 mL/hr, CONTINUOUS, Starting on Wed01/11/24 at 1845, Until Wed01/19/24 at 1423, Convert IV to PRN adapter post op day 1 if adequate oral intake, Post-op/Post- Proc sulfamethoxazole 800 mg / trimethoprim 160 mg oral tablet (2 sources) Dihydrofolate Reductase Inhibitor Antibacterial, Sulfonamide Antimicrobial Start: 01-27-2024 End: 01-30-2024 traMADol hydrochloride 50 mg oral tablet (1 source) Opioid Agonist Start: 01-12-2024 End: 01-19-2024 take 1 tablet by mouth every six hours as needed 50 mg, Oral, EVERY 6 HOURS NEEDED, Starting on Wed01/12/24 at 2208, Until Wed01/19/24 at 1423, Moderate Pain tranexamic acid 650 mg oral tablet (1 source) Antifibrinolytic Agent Start: 01-11-2024 End: 01-11-2024 take 1 dose by mouth every two hours 1,950 mg, Oral, ONCE DIRECTED, 1 dose, Starting on Wed01/11/24 at 1141, Until Wed01/11/24 at 1209, See admin instructions, Administer 2 hours preop, Pre-op/Pre-Pr oc zolpidem tartrate 5 mg oral tablet (3 sources) gamma-Aminobutyric Acid-ergic Agonist Start: 01-11-2024 End: 02-11-2024 (5 sources) Start: 01-20-2024 End: 02-11-2024 (2 sources) Start: 02-09-2024 End: 02-11-2024 Problems Active Problems Problem Classification Problem Date Documented Date Episodic/Chronic Allergic reactions (1 source) Allergy status to narcotic agent status; 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: [ALLERGY STATUS NARCOTIC AGENT] Onset: 11-19-2022 Episodic Aortic; peripheral; and visceral artery aneurysms (20 sources) Aneurysm of ascending aorta; 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: [Aneurysm of ascending aorta without rupture] Onset: 12-22-2023 01-17-2024 Chronic Calculus of urinary tract (1 source) Personal history of urinary calculi; 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: [PERSONAL HISTORY OF URINARY CALCULI] Onset: 11-19-2022 Episodic Esophageal disorders (9 sources) Gastroesophageal reflux disease without esophagitis; 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: [Gastro-esophageal reflux disease without esophagitis] Onset: 01-17-2024 01-17-2024 Chronic Fracture of upper limb (18 sources) Closed fracture of hand; 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: [Unspecified fracture of unspecified wrist and hand, initial encounter for closed fracture] Onset: 01-17-2024 01-17-2024 Episodic Genitourinary symptoms and ill-defined conditions (9 sources) Mixed urinary incontinence; 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: [Mixed incontinence] Onset: 01-17-2024 01-17-2024 Chronic Gout and other crystal arthropathies (11 sources) Gout, unspecified; 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: [Gout] Onset: 11-19-2022 01-17-2024 Chronic Malaise and fatigue (1 source) Other fatigue; 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: [Other fatigue] Onset: 09-18-2023 Episodic Osteoarthritis (14 sources) Unspecified osteoarthritis, unspecified site; 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: [Osteoarthritis of left hip joint] Onset: 11-19-2022 01-11-2024 Chronic Other aftercare (1 source) Other usp (current) drug therapy; 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: [OTH SAFETY MANAGER CURRENT DRUG THERAPY] Onset: 11-19-2022 Episodic Other aftercare (1 source) retirement (current) use of non-steroidal anti-inflammatories (NSAID); 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: [SAFETY MANAGER USE NSAID] Onset: 11-19-2022 Episodic Other and ill-defined heart disease (1 source) Heart disease, unspecified; 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: [HEART DISEASE UNSPECIFIED] Onset: 11-19-2022 Chronic Other connective tissue disease (1 source) Presence of artificial knee joint, bilateral; 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: [PRESENCE ARTIFICIAL KNEE JNT BILAT] Onset: 11-19-2022 Chronic Other connective tissue disease (1 source) Presence of unspecified artificial hip joint; 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: [PRESENCE UNS ARTIFICIAL HIP JOINT] Onset: 11-19-2022 Chronic Other connective tissue disease (20 sources) History of total hip arthroplasty; 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: [Presence of left artificial hip joint] Onset: 01-12-2024 01-12-2024 Chronic Other connective tissue disease (4 sources) Presence of left artificial hip joint; 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: [Presence of left artificial hip joint] Onset: 01-19-2024 Chronic Other nervous system disorders (1 source) Other chronic pain; 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: [Other chronic pain] Onset: 09-18-2023 Chronic Other nervous system disorders (9 sources) Unsteady when standing; 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: [Unsteadiness on feet] Onset: 01-17-2024 01-17-2024 Episodic Other nervous system disorders (2 sources) Other acute postprocedural pain; 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: [Other acute postprocedural pain] Onset: 01-11-2024 Episodic Other non-traumatic joint disorders (1 source) Pain in unspecified knee; 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: [PAIN IN UNSPECIFIED KNEE] Onset: 11-19-2022 Episodic Other non-traumatic joint disorders (1 source) Pain in left knee; 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: [Pain in left knee] Onset: 09-18-2023 Episodic Other non-traumatic joint disorders (2 sources) Hip pain; 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: [Pain in left hip] 11-19-2023 Episodic Other non-traumatic joint disorders (1 source) Joint pain; 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: [Pain in other specified joint] 01-11-2024 Episodic Other non-traumatic joint disorders (2 sources) Pain in left hip; 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: [Pain in left hip] Onset: 01-11-2024 Episodic Other nutritional; endocrine; and metabolic disorders (1 source) Hypomagnesemia; 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: [Hypomagnesemia] Onset: 09-18-2023 Chronic Other nutritional; endocrine; and metabolic disorders (9 sources) Hypomagnesemia; 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: [Hypomagnesemia] Onset: 01-17-2024 01-17-2024 Chronic Other nutritional; endocrine; and metabolic disorders (9 sources) Obesity caused by energy imbalance; 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: [Morbid (severe) obesity due to excess calories] Onset: 01-17-2024 01-17-2024 Chronic Other nutritional; endocrine; and metabolic disorders (9 sources) Disorder of plasma protein metabolism; 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: [Other disorders of plasma-protein metabolism, not elsewhere classified] Onset: 01-17-2024 01-17-2024 Chronic Pulmonary heart disease (12 sources) Other pulmonary embolism without acute cor pulmonale; 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: [Personal history of pulmonary embolism] Onset: 11-09-2022 Episodic Residual codes; unclassified (1 source) Acquired absence of kidney; 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: [ACQUIRED ABSENCE OF KIDNEY] Onset: 11-19-2022 Episodic Residual codes; unclassified (1 source) Acquired absence of both cervix and uterus; 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: [ACQUIRED ABSENCE BOTH CERVIX AND UTERUS] Onset: 11-19-2022 Episodic Residual codes; unclassified (1 source) Acquired absence of other specified parts of digestive tract; 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: [ACQ ABSENCE OTH PART DIGESTV TRACT] Onset: 11-19-2022 Episodic Residual codes; unclassified (9 sources) Absent kidney; 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: [Acquired absence of kidney] Onset: 12-22-2023 01-17-2024 Episodic Residual codes; unclassified (8 sources) History of nephrectomy; 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: [Acquired absence of kidney] Onset: 02-08-2024 02-08-2024 Episodic Residual codes; unclassified (2 sources) Pain; 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: [Pain] Onset: 03-16-2024 Episodic Respiratory failure; insufficiency; arrest (adult) (1 source) Acute respiratory failure, unspecified whether with hypoxia or hypercapnia; 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: [AC RESP FAIL UNS HYPOX/HYPERCAPNIA] Onset: 11-19-2022 Episodic Spondylosis; intervertebral disc disorders; other back problems (9 sources) Lumbar spondylosis; 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: [Spondylosis without myelopathy or radiculopathy, lumbar region] Onset: 01-17-2024 01-17-2024 Chronic Spondylosis; intervertebral disc disorders; other back problems (1 source) Dorsalgia, unspecified; 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: [DORSALGIA UNSPECIFIED] Onset: 11-19-2022 Episodic Unclassified (1 source) Single subsegmental pulmonary embolism without acute cor pulmonale; 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: [SNGL SBSG PULM EMB WO AC COR PLMNAL] Onset: 11-19-2022 Unclassified (1 source) ANEURYSM ASCEND AORTA W/O RUPTURE; 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: [ANEURYSM ASCEND AORTA W/O RUPTURE] Onset: 11-19-2022 Unclassified (1 source) CONTACT W/AND (SUSP) EXPOS COVID-19; 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: [CONTACT W/AND (SUSP) EXPOS COVID-19] Onset: 11-19-2022 Unclassified (1 source) Aneurysm of the ascending aorta, without rupture; 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: [Aneurysm of the ascending aorta, without rupture] Onset: 12-22-2023 Unclassified (1 source) Pain in other specified joint; 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: [Pain in other specified joint] Onset: 01-11-2024 Past or Other Problems Problem Classification Problem Date Documented Da te Episodic/Chronic Diabetes mellitus without complication (3 sources) Prediabetes; 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: [Other abnormal glucose] Onset: 09-18-2023 Episodic Unclassified (1 source) Aneurysm of the ascending aorta, without rupture; 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: [Aneurysm of the ascending aorta, without rupture] Onset: 12-22-2023 Unclassified (1 source) Onset: 01-19-2024 01-19-2024 Unclassified (1 source) Pain in other specified joint; 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: [Pain in other specified joint] Onset: 01-11-2024 Results Test Name Value Interpretation Reference Range Facility BMP FASTINGon 02-11-2024 Anion gap [Moles/Vol] 3 mmol/L Low 8-[address] [facility] Calcium [Mass/Vol] 9.1 mg/dL Normal 8.4-10.2 [facility] Chloride [Moles/Vol] 104 mmol/L Normal 98-107 [facility] Comment on above: Result Comment: Shonda matthews note: Triglyceride levels of 600mg/dL or higher may positively bias chloride results by approximately 2.1 mmol CO2 [Moles/Vol] 28 mmol/L Normal 22-30 [facility] Creatinine [Mass/Vol] 0.80 mg/dL Normal 0.7-1.[address] [facility] EST. GFR, 89 ml/min/1.73sq.m Normal [facility] EST. GFR,Non 73 ml/min/1.73sq.m [facility] GFR Information Average GFR for 70+ years old = 75. Normal [facility] Comment on above: Result Comment: Rigging Foreman aviva Kidney disease, GFR = <60. Kidney failure, GFR = <15. The GFR estimate is not adjusted for extreme body surface area or acute process, nor has it been validated for women or ethnic groups other than and . Glucose [Mass/Vol] 98 mg/dL Normal 70-100 [facility] Comment on above: Result Comment: NORMAL <100 mg/dL PREDIABETES 101-126 mg/dL DIABETES 126 mg/dL or higher Potassium [Moles/Vol] 4.5 mmol/L Normal 3.5-5.[address] [facility] Sodium [Moles/Vol] 135 mmol/L Low 137-145 [facility] Urea nitrogen [Mass/Vol] 16 mg/dL Normal 7-20 [facility] C REACTIVE PROTEINon 024 CRP [Mass/Vol] 22.8 mg/L High 0-10 [facility] CBCon 02-11-2024 ABSOLUTE BAS 0.0 10*3/uL Normal 0.0-0.2 [facility] ABSOLUTE EOS 0.2 10*3/uL Normal 0.0-0.7 [facility] ABSOLUTE NEUTROPHIL COUNT 2.8 10*3/uL Normal 1.4-6.5 [facility] Basophils/100 WBC (Bld) 1.0 % Normal 0.0-2.0 [facility] DTYPE AUTO DIFF Normal [facility] Eosinophils/100 WBC (Bld) 4.1 % Normal 0.0-11.0 [facility] Lymphocytes (Bld) [#/Vol] 1.3 10*3/uL Normal 1.2-3.4 [facility] Lymphocytes/100 WBC (Bld) 25.8 % Normal 20.0-55.0 [facility] Monocytes (Bld) [#/Vol] 0.7 10*3/uL Normal 0.0-0.7 [facility] Monocytes/100 WBC (Bld) 13.4 % High 0.0-10.0 [facility] Neutrophils/100 WBC (Bld) 55.7 % Normal 37.0-75.0 [facility] Erythrocyte distribution width (RBC) [Ratio] 15.2 % High 11.5-14.5 [facility] Hematocrit (Bld) [Volume fraction] 31.9 % Low 36.0-48.0 [facility] Hemoglobin (Bld) [Mass/Vol] 10.7 g/dL Low 12.0-16.0 [facility] MCH (RBC) [Entitic mass] 32.2 pg Normal 26.0-35.0 [facility] MCHC (RBC) [Mass/Vol] 33.6 g/dL Normal 27.0-37.[address] [facility] MCV (RBC) [Entitic vol] 96.1 fL Normal 80.0-100.0 [facility] Platelet mean volume (Bld) [Entitic vol] 7.2 fL Low 7.4-11.0 [facility] Platelets (Bld) [#/Vol] 368 10*3/uL Normal 130-400 [facility] RBC (Bld) [#/Vol] 3.32 10*6/uL Low 4.0-5.4 [facility] WBC (Bld) [#/Vol] 5.0 10*3/uL Normal 3.6-11.0 [facility] Laboratory - Chemistry and C hemistry - challengeon 02-11-2024 Anion gap [Moles/Vol] 3 mmol/L Low [facility] Calcium [Mass/Vol] 9.1 mg/dL [facility] Chloride [Moles/Vol] 104 mmol/L [facility] CO2 [Moles/Vol] 28 mmol/L [facility] Creatinine [Mass/Vol] 0.80 mg/dL [facility] CRP [Mass/Vol] 22.8 mg/L High 0 - 10 MG/L [facility] GFR/1.73 sq M.predicted among blacks MDRD (S/P/Bld) [Vol rate/Area] 89 mL/min/{1.73_m2} ml/min/1.73sq .m [facility] GFR/1.73 sq M.predicted among non-blacks MDRD (S/P/Bld) [Vol rate/Area] 73 mL/min/{1.73_m2} ml/min/1.73sq .m [facility] Glucose post fast [Mass/Vol] 98 mg/dL [facility] Potassium [Moles/Vol] 4.5 mmol/L [facility] Sodium [Moles/Vol] 135 mmol/L Low [facility] Urea nitrogen [Mass/Vol] 16 mg/dL [facility] Laboratory - Hematology and Cell countson 02-11-2024 Basophils/100 WBC (Bld) 1.0 % 0.0 - 2.0 % [facility] Differential cell count method Nom (Bld) AUTO DIFF % [facility] Eosinophils (Bld) [#/Vol] 0.2 10*3/uL 0.0 - 0.7 10*3/uL [facility] Eosinophils/100 WBC (Bld) 4.1 % 0.0 - 11.0 % [facility] Erythrocyte distribution width (RBC) [Ratio] 15.2 % High 11.5 - 14.5 % [facility] Hematocrit (Bld) [Volume fraction] 31.9 % Low 36.0 - 48.0 % [facility] Hemoglobin (Bld) [Mass/Vol] 10.7 g/dL Low [facility] Lymphocytes (Bld) [#/Vol] 1.3 10*3/uL 1.2 - 3.4 10*3/uL [facility] Lymphocytes/100 WBC (Bld) 25.8 % 20.0 - 55.0 % [facility] MCH (RBC) [Entitic mass] 32.2 pg 26.0 - 35.0 PG [facility] MCHC (RBC) [Mass/Vol] 33.6 g/dL [facility] MCV (RBC) [Entitic vol] 96.1 fL [facility] Monocytes (Bld) [#/Vol] 0.7 10*3/uL 0.0 - 0.7 10*3/uL [facility] Monocytes/100 WBC (Bld) 13.4 % High 0.0 - 10.0 % [facility] Neutrophils (Bld) [#/Vol] 2.8 10*3/uL 1.4 - 6.5 10*3/uL [facility] Neutrophils/100 WBC (Bld) 55.7 % 37.0 - 75.0 % [facility] Platelet mean volume (Bld) [Entitic vol] 7.2 fL Low [facility] Platelets (Bld) [#/Vol] 368 10*3/uL 130 - 400 10*3/uL [facility] RBC (Bld) [#/Vol] 3.32 10*6/uL Low 4.0 - 5.4 10*6/uL [facility] WBC (Bld) [#/Vol] 5.0 10*3/uL 3.6 - 11.0 10*3/uL [facility] No Panel Informationon 02-10 GFR COMMENT Average GFR for 70+ years old = 75. [facility] Interpretation and review of laboratory results Abnormal [facility] ABSOLUTE BASOPHIL COUNT 0.0 10*3/uL 0.0 - 0.2 10*3/uL [facility] Interpretation and review of laboratory results Abnormal [facility] BMP FASTINGon 02-10-2024 Anion gap [Moles/Vol] 1 mmol/L Low 8-[address] [facility] Calcium [Mass/Vol] 8.8 mg/dL Normal 8.4-10.2 [facility] Chloride [Moles/Vol] 105 mmol/L Normal 98-107 [facility] Comment on above: Result Comment: Shonda matthews note: Triglyceride levels of 600mg/dL or higher may positively bias chloride results by approximately 2.1 mmol CO2 [Moles/Vol] 29 mmol/L Normal 22-30 [facility] Creatinine [Mass/Vol] 0.80 mg/dL Normal 0.7-1.[address] [facility] EST. GFR, 89 ml/min/1.73sq.m Normal [facility] EST. GFR,Non 73 ml/min/1.73sq.m Normal [facility] GFR Information Average GFR for 70+ years old = 75. Normal [facility] Comment on above: Result Comment: [employer] aviva Kidney disease, GFR = <60. Kidney failure, GFR = <15. The GFR estimate is not adjusted for extreme body surface area or acute process, nor has it been validated for women or ethnic groups other than and . Glucose [Mass/Vol] 97 mg/dL Normal 70-100 [facility] Comment on above: Result Comment: NORMAL <100 mg/dL PREDIABETES 101-126 mg/dL DIABETES 126 mg/dL or higher Potassium [Moles/Vol] 4.3 mmol/L Normal 3.5-5.[address] [facility] Sodium [Moles/Vol] 135 mmol/L Low 137-145 [facility] Urea nitrogen [Mass/Vol] 19 mg/dL Normal 7-20 [facility] C REACTIVE PROTEINon 024 CRP [Mass/Vol] 18.6 mg/L High 0-10 [facility] CBCon 02-10-2024 ABSOLUTE BAS 0.0 10*3/uL Normal 0.0-0.2 [facility] ABSOLUTE EOS 0.2 10*3/uL Normal 0.0-0.7 [facility] ABSOLUTE NEUTROPHIL COUNT 3.8 10*3/uL Normal 1.4-6.5 [facility] Basophils/100 WBC (Bld) 0.6 % Normal 0.0-2.0 [facility] DTYPE AUTO DIFF Normal [facility] Eosinophils/100 WBC (Bld) 3.1 % Normal 0.0-11.0 [facility] Lymphocytes (Bld) [#/Vol] 1.6 10*3/uL Normal 1.2-3.4 [facility] Lymphocytes/100 WBC (Bld) 24.9 % Normal 20.0-55.0 [facility] Monocytes (Bld) [#/Vol] 0.7 10*3/uL Normal 0.0-0.7 [facility] Monocytes/100 WBC (Bld) 11.0 % High 0.0-10.0 [facility] Neutrophils/100 WBC (Bld) 60.4 % Normal 37.0-75.0 [facility] Erythrocyte distribution width (RBC) [Ratio] 15.2 % High 11.5-14.5 [facility] Hematocrit (Bld) [Volume fraction] 31.7 % Low 36.0-48.0 [facility] Hemoglobin (Bld) [Mass/Vol] 10.7 g/dL Low 12.0-16.0 [facility] MCH (RBC) [Entitic mass] 32.1 pg Normal 26.0-35.0 [facility] MCHC (RBC) [Mass/Vol] 33.6 g/dL Normal 27.0-37.[address] [facility] MCV (RBC) [Entitic vol] 95.6 fL Normal 80.0-100.0 [facility] Platelet mean volume (Bld) [Entitic vol] 7.2 fL Low 7.4-11.0 [facility] Platelets (Bld) [#/Vol] 369 10*3/uL Normal 130-400 [facility] RBC (Bld) [#/Vol] 3.32 10*6/uL Low 4.0-5.4 [facility] WBC (Bld) [#/Vol] 6.3 10*3/uL Normal 3.6-11.0 [facility] Laboratory - Chemistry and C hemistry - challengeon 02-10-2024 Anion gap [Moles/Vol] 1 mmol/L Low [facility] Calcium [Mass/Vol] 8.8 mg/dL [facility] Chloride [Moles/Vol] 105 mmol/L [facility] CO2 [Moles/Vol] 29 mmol/L [facility] Creatinine [Mass/Vol] 0.80 mg/dL [facility] CRP [Mass/Vol] 18.6 mg/L High 0 - 10 MG/L [facility] GFR/1.73 sq M.predicted among blacks MDRD (S/P/Bld) [Vol rate/Area] 89 mL/min/{1.73_m2} ml/min/1.73sq .m [facility] GFR/1.73 sq M.predicted among non-blacks MDRD (S/P/Bld) [Vol rate/Area] 73 mL/min/{1.73_m2} ml/min/1.73sq .m [facility] Glucose post fast [Mass/Vol] 97 mg/dL [facility] Potassium [Moles/Vol] 4.3 mmol/L [facility] Sodium [Moles/Vol] 135 mmol/L Low [facility] Urea nitrogen [Mass/Vol] 19 mg/dL [facility] Laboratory - Hematology and Cell countson 02-10-2024 Basophils/100 WBC (Bld) 0.6 % 0.0 - 2.0 % [facility] Differential cell count method Nom (Bld) AUTO DIFF % [facility] Eosinophils (Bld) [#/Vol] 0.2 10*3/uL 0.0 - 0.7 10*3/uL [facility] Eosinophils/100 WBC (Bld) 3.1 % 0.0 - 11.0 % [facility] Erythrocyte distribution width (RBC) [Ratio] 15.2 % High 11.5 - 14.5 % [facility] Hematocrit (Bld) [Volume fraction] 31.7 % Low 36.0 - 48.0 % [facility] Hemoglobin (Bld) [Mass/Vol] 10.7 g/dL Low [facility] Lymphocytes (Bld) [#/Vol] 1.6 10*3/uL 1.2 - 3.4 10*3/uL [facility] Lymphocytes/100 WBC (Bld) 24.9 % 20.0 - 55.0 % [facility] MCH (RBC) [Entitic mass] 32.1 pg 26.0 - 35.0 PG [facility] MCHC (RBC) [Mass/Vol] 33.6 g/dL [facility] MCV (RBC) [Entitic vol] 95.6 fL [facility] Monocytes (Bld) [#/Vol] 0.7 10*3/uL 0.0 - 0.7 10*3/uL [facility] Monocytes/100 WBC (Bld) 11.0 % High 0.0 - 10.0 % [facility] Neutrophils (Bld) [#/Vol] 3.8 10*3/uL 1.4 - 6.5 10*3/uL [facility] Neutrophils/100 WBC (Bld) 60.4 % 37.0 - 75.0 % [facility] Platelet mean volume (Bld) [Entitic vol] 7.2 fL Low [facility] Platelets (Bld) [#/Vol] 369 10*3/uL 130 - 400 10*3/uL [facility] RBC (Bld) [#/Vol] 3.32 10*6/uL Low 4.0 - 5.4 10*6/uL [facility] WBC (Bld) [#/Vol] 6.3 10*3/uL 3.6 - 11.0 10*3/uL [facility] No Panel Informationon 02-09 GFR COMMENT Average GFR for 70+ years old = 75. [facility] Interpretation and review of laboratory results Abnormal [facility] ABSOLUTE BASOPHIL COUNT 0.0 10*3/uL 0.0 - 0.2 10*3/uL [facility] Interpretation and review of laboratory results Abnormal [facility] BMP FASTINGon 02-09-2024 Anion gap [Moles/Vol] 3 mmol/L Low 8-[address] [facility] Calcium [Mass/Vol] 9.1 mg/dL Normal 8.4-10.2 [facility] Chloride [Moles/Vol] 104 mmol/L Normal 98-107 [facility] Comment on above: Result Comment: Shonda matthews note: Triglyceride levels of 600mg/dL or higher may positively bias chloride results by approximately 2.1 mmol CO2 [Moles/Vol] 28 mmol/L Normal 22-30 [facility] Creatinine [Mass/Vol] 0.90 mg/dL Normal 0.7-1.[address] [facility] EST. GFR, 77 ml/min/1.73sq.m Normal [facility] EST. GFR,Non 64 ml/min/1.73sq.m Normal [facility] GFR Information Average GFR for 70+ years old = 75. Normal [facility] Comment on above: Result Comment: [employer]ging [employer] aviva Kidney disease, GFR = <60. Kidney failure, GFR = <15. The GFR estimate is not adjusted for extreme body surface area or acute process, nor has it been validated for women or ethnic groups other than and . Glucose [Mass/Vol] 103 mg/dL High 70-100 [facility] Comment on above: Result Comment: NORMAL <100 mg/dL PREDIABETES 101-126 mg/dL DIABETES 126 mg/dL or higher Potassium [Moles/Vol] 4.5 mmol/L Normal 3.5-5.[address] [facility] Sodium [Moles/Vol] 135 mmol/L Low 137-145 [facility] Urea nitrogen [Mass/Vol] 20 mg/dL Normal 7-20 [facility] C REACTIVE PROTEINon 02-08- 024 CRP [Mass/Vol] 21.2 mg/L High 0-10 [facility] CBCon 02-09-2024 ABSOLUTE BAS 0.1 10*3/uL Normal 0.0-0.2 [facility] ABSOLUTE EOS 0.2 10*3/uL Normal 0.0-0.7 [facility] ABSOLUTE NEUTROPHIL COUNT 3.7 10*3/uL Normal 1.4-6.5 [facility] Basophils/100 WBC (Bld) 0.9 % Normal 0.0-2.0 [facility] DTYPE AUTO DIFF Normal [facility] Eosinophils/100 WBC (Bld) 2.9 % Normal 0.0-11.0 [facility] Lymphocytes (Bld) [#/Vol] 1.8 10*3/uL Normal 1.2-3.4 [facility] Lymphocytes/100 WBC (Bld) 27.8 % Normal 20.0-55.0 [facility] Monocytes (Bld) [#/Vol] 0.7 10*3/uL Normal 0.0-0.7 [facility] Monocytes/100 WBC (Bld) 10.8 % High 0.0-10.0 [facility] Neutrophils/100 WBC (Bld) 57.6 % Normal 37.0-75.0 [facility] Erythrocyte distribution width (RBC) [Ratio] 15.1 % High 11.5-14.5 [facility] Hematocrit (Bld) [Volume fraction] 34.2 % Low 36.0-48.0 [facility] Hemoglobin (Bld) [Mass/Vol] 11.4 g/dL Low 12.0-16.0 [facility] MCH (RBC) [Entitic mass] 32.0 pg Normal 26.0-35.0 [facility] MCHC (RBC) [Mass/Vol] 33.4 g/dL Normal 27.0-37.[address] [facility] MCV (RBC) [Entitic vol] 96.0 fL Normal 80.0-100.0 [facility] Platelet mean volume (Bld) [Entitic vol] 7.4 fL Normal 7.4-11.0 [facility] Platelets (Bld) [#/Vol] 401 10*3/uL High 130-400 [facility] RBC (Bld) [#/Vol] 3.56 10*6/uL Low 4.0-5.4 [facility] WBC (Bld) [#/Vol] 6.4 10*3/uL Normal 3.6-11.0 [facility] Laboratory - Chemistry and C hemistry - challengeon 02-09-2024 Anion gap [Moles/Vol] 3 mmol/L Low [facility] Calcium [Mass/Vol] 9.1 mg/dL [facility] Chloride [Moles/Vol] 104 mmol/L [facility] CO2 [Moles/Vol] 28 mmol/L [facility] Creatinine [Mass/Vol] 0.90 mg/dL [facility] CRP [Mass/Vol] 21.2 mg/L High 0 - 10 MG/L [facility] GFR/1.73 sq M.predicted among blacks MDRD (S/P/Bld) [Vol rate/Area] 77 mL/min/{1.73_m2} ml/min/1.73sq .m [facility] GFR/1.73 sq M.predicted among non-blacks MDRD (S/P/Bld) [Vol rate/Area] 64 mL/min/{1.73_m2} ml/min/1.73sq .m [facility] Glucose post fast [Mass/Vol] 103 mg/dL High [facility] Potassium [Moles/Vol] 4.5 mmol/L [facility] Sodium [Moles/Vol] 135 mmol/L Low [facility] Urea nitrogen [Mass/Vol] 20 mg/dL [facility] Laboratory - Hematology and Cell countson 02-09-2024 Basophils/100 WBC (Bld) 0.9 % 0.0 - 2.0 % [facility] Differential cell count method Nom (Bld) AUTO DIFF % [facility] Eosinophils (Bld) [#/Vol] 0.2 10*3/uL 0.0 - 0.7 10*3/uL [facility] Eosinophils/100 WBC (Bld) 2.9 % 0.0 - 11.0 % [facility] Erythrocyte distribution width (RBC) [Ratio] 15.1 % High 11.5 - 14.5 % [facility] Hematocrit (Bld) [Volume fraction] 34.2 % Low 36.0 - 48.0 % [facility] Hemoglobin (Bld) [Mass/Vol] 11.4 g/dL Low [facility] Lymphocytes (Bld) [#/Vol] 1.8 10*3/uL 1.2 - 3.4 10*3/uL [facility] Lymphocytes/100 WBC (Bld) 27.8 % 20.0 - 55.0 % [facility] MCH (RBC) [Entitic mass] 32.0 pg 26.0 - 35.0 PG [facility] MCHC (RBC) [Mass/Vol] 33.4 g/dL [facility] MCV (RBC) [Entitic vol] 96.0 fL [facility] Monocytes (Bld) [#/Vol] 0.7 10*3/uL 0.0 - 0.7 10*3/uL [facility] Monocytes/100 WBC (Bld) 10.8 % High 0.0 - 10.0 % [facility] Neutrophils (Bld) [#/Vol] 3.7 10*3/uL 1.4 - 6.5 10*3/uL [facility] Neutrophils/100 WBC (Bld) 57.6 % 37.0 - 75.0 % [facility] Platelet mean volume (Bld) [Entitic vol] 7.4 fL [facility] Platelets (Bld) [#/Vol] 401 10*3/uL High 130 - 400 10*3/uL [facility] RBC (Bld) [#/Vol] 3.56 10*6/uL Low 4.0 - 5.4 10*6/uL [facility] WBC (Bld) [#/Vol] 6.4 10*3/uL 3.6 - 11.0 10*3/uL [facility] No Panel Informationon 02-08 GFR COMMENT Average GFR for 70+ years old = 75. [facility] Interpretation and review of laboratory results Abnormal [facility] ABSOLUTE BASOPHIL COUNT 0.1 10*3/uL 0.0 - 0.2 10*3/uL [facility] Interpretation and review of laboratory results Abnormal [facility] BMP FASTINGon 02-08-2024 Anion gap [Moles/Vol] Negative Normal 8-[address] [facility] Calcium [Mass/Vol] 8.9 mg/dL Normal 8.4-10.2 [facility] Chloride [Moles/Vol] 104 mmol/L Normal 98-107 [facility] Comment on above: Result Comment: Shonda matthews note: Triglyceride levels of 600mg/dL or higher may positively bias chloride results by approximately 2.1 mmol CO2 [Moles/Vol] 30 mmol/L Normal 22-30 [facility] Creatinine [Mass/Vol] 0.80 mg/dL Normal 0.7-1.[address] [facility] EST. GFR, 89 ml/min/1.73sq.m Normal [facility] EST. GFR,Non 73 ml/min/1.73sq.m Normal [facility] GFR Information Average GFR for 70+ years old = 75. Normal [facility] Comment on above: Result Comment: [employer]ging [employer]man aviva Kidney disease, GFR = <60. Kidney failure, GFR = <15. The GFR estimate is not adjusted for extreme body surface area or acute process, nor has it been validated for women or ethnic groups other than and . Glucose [Mass/Vol] 96 mg/dL Normal 70-100 [facility] Comment on above: Result Comment: NORMAL <100 mg/dL PREDIABETES 101-126 mg/dL DIABETES 126 mg/dL or higher Potassium [Moles/Vol] 4.3 mmol/L Normal 3.5-5.[address] [facility] Sodium [Moles/Vol] 133 mmol/L Low 137-145 [facility] Urea nitrogen [Mass/Vol] 14 mg/dL Normal 7-20 [facility] C REACTIVE PROTEINon 02-07- 024 CRP [Mass/Vol] 22.2 mg/L High 0-10 [facility] CBCon 02-08-2024 ABSOLUTE BAS 0.1 10*3/uL Normal 0.0-0.2 [facility] ABSOLUTE EOS 0.2 10*3/uL Normal 0.0-0.7 [facility] ABSOLUTE NEUTROPHIL COUNT 3.2 10*3/uL Normal 1.4-6.5 [facility] Basophils/100 WBC (Bld) 1.0 % Normal 0.0-2.0 [facility] DTYPE AUTO DIFF Normal [facility] Eosinophils/100 WBC (Bld) 3.5 % Normal 0.0-11.0 [facility] Lymphocytes (Bld) [#/Vol] 1.5 10*3/uL Normal 1.2-3.4 [facility] Lymphocytes/100 WBC (Bld) 26.3 % Normal 20.0-55.0 [facility] Monocytes (Bld) [#/Vol] 0.6 10*3/uL Normal 0.0-0.7 [facility] Monocytes/100 WBC (Bld) 11.2 % High 0.0-10.0 [facility] Neutrophils/100 WBC (Bld) 58.0 % Normal 37.0-75.0 [facility] Erythrocyte distribution width (RBC) [Ratio] 15.3 % High 11.5-14.5 [facility] Hematocrit (Bld) [Volume fraction] 30.8 % Low 36.0-48.0 [facility] Hemoglobin (Bld) [Mass/Vol] 10.4 g/dL Low 12.0-16.0 [facility] MCH (RBC) [Entitic mass] 32.1 pg Normal 26.0-35.0 [facility] MCHC (RBC) [Mass/Vol] 33.7 g/dL Normal 27.0-37.[address] [facility] MCV (RBC) [Entitic vol] 95.1 fL Normal 80.0-100.0 [facility] Platelet mean volume (Bld) [Entitic vol] 7.4 fL Normal 7.4-11.0 [facility] Platelets (Bld) [#/Vol] 368 10*3/uL Normal 130-400 [facility] RBC (Bld) [#/Vol] 3.24 10*6/uL Low 4.0-5.4 [facility] WBC (Bld) [#/Vol] 5.5 10*3/uL Normal 3.6-11.0 [facility] ESRon 02-08-2024 ESR (Bld) [Velocity] 75 mm/h High 0-30 [facility] Laboratory - Chemistry and C hemistry - challengeon 02-08-2024 Anion gap [Moles/Vol] Negative [facility] Calcium [Mass/Vol] 8.9 mg/dL [facility] Chloride [Moles/Vol] 104 mmol/L [facility] CO2 [Moles/Vol] 30 mmol/L [facility] Creatinine [Mass/Vol] 0.80 mg/dL [facility] CRP [Mass/Vol] 22.2 mg/L High 0 - 10 MG/L [facility] GFR/1.73 sq M.predicted among blacks MDRD (S/P/Bld) [Vol rate/Area] 89 mL/min/{1.73_m2} ml/min/1.73sq .m [facility] GFR/1.73 sq M.predicted among non-blacks MDRD (S/P/Bld) [Vol rate/Area] 73 mL/min/{1.73_m2} ml/min/1.73sq .m [facility] Glucose post fast [Mass/Vol] 96 mg/dL [facility] Potassium [Moles/Vol] 4.3 mmol/L [facility] Sodium [Moles/Vol] 133 mmol/L Low [facility] Urea nitrogen [Mass/Vol] 14 mg/dL [facility] Laboratory - Hematology and Cell countson 02-08-2024 ESR (Bld) [Velocity] 75 mm/h High [facility] Basophils/100 WBC (Bld) 1.0 % 0.0 - 2.0 % [facility] Differential cell count method Nom (Bld) AUTO DIFF % [facility] Eosinophils (Bld) [#/Vol] 0.2 10*3/uL 0.0 - 0.7 10*3/uL [facility] Eosinophils/100 WBC (Bld) 3.5 % 0.0 - 11.0 % [facility] Erythrocyte distribution width (RBC) [Ratio] 15.3 % High 11.5 - 14.5 % [facility] Hematocrit (Bld) [Volume fraction] 30.8 % Low 36.0 - 48.0 % [facility] Hemoglobin (Bld) [Mass/Vol] 10.4 g/dL Low [facility] Lymphocytes (Bld) [#/Vol] 1.5 10*3/uL 1.2 - 3.4 10*3/uL [facility] Lymphocytes/100 WBC (Bld) 26.3 % 20.0 - 55.0 % [facility] MCH (RBC) [Entitic mass] 32.1 pg 26.0 - 35.0 PG [facility] MCHC (RBC) [Mass/Vol] 33.7 g/dL [facility] MCV (RBC) [Entitic vol] 95.1 fL [facility] Monocytes (Bld) [#/Vol] 0.6 10*3/uL 0.0 - 0.7 10*3/uL [facility] Monocytes/100 WBC (Bld) 11.2 % High 0.0 - 10.0 % [facility] Neutrophils (Bld) [#/Vol] 3.2 10*3/uL 1.4 - 6.5 10*3/uL [facility] Neutrophils/100 WBC (Bld) 58.0 % 37.0 - 75.0 % [facility] Platelet mean volume (Bld) [Entitic vol] 7.4 fL [facility] Platelets (Bld) [#/Vol] 368 10*3/uL 130 - 400 10*3/uL [facility] RBC (Bld) [#/Vol] 3.24 10*6/uL Low 4.0 - 5.4 10*6/uL [facility] WBC (Bld) [#/Vol] 5.5 10*3/uL 3.6 - 11.0 10*3/uL [facility] No Panel Informationon 02-07 Interpretation and review of laboratory results Abnormal [facility] GFR COMMENT Average GFR for 70+ years old = 75. [facility] Interpretation and review of laboratory results Abnormal [facility] ABSOLUTE BASOPHIL COUNT 0.1 10*3/uL 0.0 - 0.2 10*3/uL [facility] Interpretation and review of laboratory results Abnormal [facility] BMP FASTINGon 02-07-2024 Anion gap [Moles/Vol] 1 mmol/L Low 8-[address] [facility] Comment on above: Performed By: #### A CBC #### Testing performed at [place] [address] [place] [address] Calcium [Mass/Vol] 8.8 mg/dL Normal 8.4-10.2 [facility] Comment on above: Performed By: #### A CBC #### Testing performed at [place] [address] [place] [id number] Chloride [Moles/Vol] 105 mmol/L Normal 98-107 [facility] Comment on above: Result Comment: Plebowen matthews note: Triglyceride levels of 600mg/dL or higher may positively bias chloride results by approximately 2.1 mmol Performed By: #### A CBC #### Testing performed at [place] [id number] CO2 [Moles/Vol] 27 mmol/L Normal 22-30 [facility] Comment on above: Performed By: #### A CBC #### Testing performed at [place] [id number] Creatinine [Mass/Vol] 0.70 mg/dL Normal 0.7-1.[address] [facility] Comment on above: Performed By: #### A CBC #### Testing performed at [address] [address] EST. GFR, 103 ml/min/1.73sq.m [facility] Comment on above: Performed By: #### A CBC #### Testing performed at [place] [id number] EST. GFR,Non 85 ml/min/1.73sq.m [facility] Comment on above: Performed By: #### A CBC #### Testing performed at [place] [id number] GFR Information Average GFR for 70+ years old = 75. Normal [facility] Comment on above: Result Comment: [employer] aviva Kidney disease, GFR = <60. Kidney failure, GFR = <15. The GFR estimate is not adjusted for extreme body surface area or acute process, nor has it been validated for women or ethnic groups other than and . Performed By: #### A CBC #### Testing performed at [place] [id number] Glucose [Mass/Vol] 95 mg/dL Normal 70-100 [facility] Comment on above: Result Comment: NORMAL <100 mg/dL PREDIABETES 101-126 mg/dL DIABETES 126 mg/dL or higher Performed By: #### A CBC #### Testing performed at [address] [place] [address] Potassium [Moles/Vol] 4.3 mmol/L Normal 3.5-5.[address] [facility] Comment on above: Performed By: #### A CBC #### Testing performed at [address] [address] Sodium [Moles/Vol] 133 mmol/L Low 137-145 [facility] Comment on above: Performed By: #### A CBC #### Testing performed at [address] [address] Urea nitrogen [Mass/Vol] 11 mg/dL Normal 7-20 [facility] Comment on above: Performed By: #### A CBC #### Testing performed at [address] [address] C REACTIVE PROTEINon 024 CRP [Mass/Vol] 19.6 mg/L High 0-10 [facility] Comment on above: Performed By: #### A CBC #### Testing performed at [address] [address] CBCon 02-07-2024 ABSOLUTE BAS 0.0 10*3/uL Normal 0.0-0.2 [facility] Comment on above: Performed By: #### A CBC #### Testing performed at [address] [address] ABSOLUTE EOS 0.2 10*3/uL Normal 0.0-0.7 [facility] Comment on above: Performed By: #### A CBC #### Testing performed at [address] [address] ABSOLUTE NEUTROPHIL COUNT 2.8 10*3/uL Normal 1.4-6.5 [facility] Comment on above: Performed By: #### A CBC #### Testing performed at [address] [address] Basophils/100 WBC (Bld) 0.9 % Normal 0.0-2.0 [facility] Comment on above: Performed By: #### A CBC #### Testing performed at [address] [place] [address] DTYPE AUTO DIFF Normal [facility] Comment on above: Performed By: #### A CBC #### Testing performed at [address] [place] [address] Eosinophils/100 WBC (Bld) 3.8 % Normal 0.0-11.0 [facility] Comment on above: Performed By: #### A CBC #### Testing performed at [address] [address] Lymphocytes (Bld) [#/Vol] 1.4 10*3/uL Normal 1.2-3.4 [facility] Comment on above: Performed By: #### A CBC #### Testing performed at [address] [address] Lymphocytes/100 WBC (Bld) 28.3 % Normal 20.0-55.0 [facility] Comment on above: Performed By: #### A CBC #### Testing performed at [address] [address] Monocytes (Bld) [#/Vol] 0.6 10*3/uL Normal 0.0-0.7 [facility] Comment on above: Performed By: #### A CBC #### Testing performed at [address] [address] Monocytes/100 WBC (Bld) 12.4 % High 0.0-10.0 [facility] Comment on above: Performed By: #### A CBC #### Testing performed at [address] [address] Neutrophils/100 WBC (Bld) 54.6 % Normal 37.0-75.0 [facility] Comment on above: Performed By: #### A CBC #### Testing performed at [address] [address] Erythrocyte distribution width (RBC) [Ratio] 16.0 % High 11.5-14.5 [facility] Comment on above: Performed By: #### A CBC #### Testing performed at [address] [address] Hematocrit (Bld) [Volume fraction] 31.7 % Low 36.0-48.0 [facility] Comment on above: Performed By: #### A CBC #### Testing performed at [address] [address] Hemoglobin (Bld) [Mass/Vol] 10.5 g/dL Low 12.0-16.0 [facility] Comment on above: Performed By: #### A CBC #### Testing performed at [address] [address] MCH (RBC) [Entitic mass] 32.5 pg Normal 26.0-35.0 [facility] Comment on above: Performed By: #### A CBC #### Testing performed at [address] [address] MCHC (RBC) [Mass/Vol] 33.1 g/dL Normal 27.0-37.[address] [facility] Comment on above: Performed By: #### A CBC #### Testing performed at [address] [address] MCV (RBC) [Entitic vol] 98.4 fL Normal 80.0-100.0 [facility] Comment on above: Performed By: #### A CBC #### Testing performed at [address] [address] Platelet mean volume (Bld) [Entitic vol] 7.2 fL Low 7.4-11.0 [facility] Comment on above: Performed By: #### A CBC #### Testing performed at [address] [address] Platelets (Bld) [#/Vol] 366 10*3/uL Normal 130-400 [facility] Comment on above: Performed By: #### A CBC #### Testing performed at [address] [place] [address] RBC (Bld) [#/Vol] 3.23 10*6/uL Low 4.0-5.4 [facility] Comment on above: Performed By: #### A CBC #### Testing performed at [address] [place] [address] WBC (Bld) [#/Vol] 5.1 10*3/uL Normal 3.6-11.0 [facility] Comment on above: Performed By: #### A CBC #### [place] [address] Laboratory - Chemistry and C hemistry - challengeon 02-07-2024 Anion gap [Moles/Vol] 1 mmol/L Low [facility] Calcium [Mass/Vol] 8.8 mg/dL [facility] Chloride [Moles/Vol] 105 mmol/L [facility] CO2 [Moles/Vol] 27 mmol/L [facility] Creatinine [Mass/Vol] 0.70 mg/dL [facility] CRP [Mass/Vol] 19.6 mg/L High 0 - 10 MG/L [facility] GFR/1.73 sq M.predicted among blacks MDRD (S/P/Bld) [Vol rate/Area] 103 mL/min/{1.73_m2} ml/min/1.73sq .m [facility] GFR/1.73 sq M.predicted among non-blacks MDRD (S/P/Bld) [Vol rate/Area] 85 mL/min/{1.73_m2} ml/min/1.73sq .m [facility] Glucose post fast [Mass/Vol] 95 mg/dL [facility] Potassium [Moles/Vol] 4.3 mmol/L [facility] Sodium [Moles/Vol] 133 mmol/L Low [facility] Urea nitrogen [Mass/Vol] 11 mg/dL [facility] Laboratory - Hematology and Cell countson 02-07-2024 Basophils/100 WBC (Bld) 0.9 % 0.0 - 2.0 % [facility] Differential cell count method Nom (Bld) AUTO DIFF % [facility] Eosinophils (Bld) [#/Vol] 0.2 10*3/uL 0.0 - 0.7 10*3/uL [facility] Eosinophils/100 WBC (Bld) 3.8 % 0.0 - 11.0 % [facility] Erythrocyte distribution width (RBC) [Ratio] 16.0 % High 11.5 - 14.5 % [facility] Hematocrit (Bld) [Volume fraction] 31.7 % Low 36.0 - 48.0 % [facility] Hemoglobin (Bld) [Mass/Vol] 10.5 g/dL Low [facility] Lymphocytes (Bld) [#/Vol] 1.4 10*3/uL 1.2 - 3.4 10*3/uL [facility] Lymphocytes/100 WBC (Bld) 28.3 % 20.0 - 55.0 % [facility] MCH (RBC) [Entitic mass] 32.5 pg 26.0 - 35.0 PG [facility] MCHC (RBC) [Mass/Vol] 33.1 g/dL [facility] MCV (RBC) [Entitic vol] 98.4 fL [facility] Monocytes (Bld) [#/Vol] 0.6 10*3/uL 0.0 - 0.7 10*3/uL [facility] Monocytes/100 WBC (Bld) 12.4 % High 0.0 - 10.0 % [facility] Neutrophils (Bld) [#/Vol] 2.8 10*3/uL 1.4 - 6.5 10*3/uL [facility] Neutrophils/100 WBC (Bld) 54.6 % 37.0 - 75.0 % [facility] Platelet mean volume (Bld) [Entitic vol] 7.2 fL Low [facility] Platelets (Bld) [#/Vol] 366 10*3/uL 130 - 400 10*3/uL [facility] RBC (Bld) [#/Vol] 3.23 10*6/uL Low 4.0 - 5.4 10*6/uL [facility] WBC (Bld) [#/Vol] 5.1 10*3/uL 3.6 - 11.0 10*3/uL [facility] No Panel Informationon 02-06 ABSOLUTE BASOPHIL COUNT 0.0 10*3/uL 0.0 - 0.2 10*3/uL [facility] Interpretation and review of laboratory results Abnormal [facility] GFR COMMENT Average GFR for 70+ years old = 75. [facility] Interpretation and review of laboratory results Abnormal [facility] BMP FASTINGon 02-06-2024 Anion gap [Moles/Vol] 2 mmol/L Low 8-[address] [facility] Calcium [Mass/Vol] 8.6 mg/dL Normal 8.4-10.2 [facility] Chloride [Moles/Vol] 104 mmol/L Normal 98-107 [facility] Comment on above: Result Comment: Shonda matthews note: Triglyceride levels of 600mg/dL or higher may positively bias chloride results by approximately 2.1 mmol CO2 [Moles/Vol] 29 mmol/L Normal 22-30 [facility] Creatinine [Mass/Vol] 0.80 mg/dL Normal 0.7-1.[address] [facility] EST. GFR, 89 ml/min/1.73sq.m Normal [facility] EST. GFR,Non 73 ml/min/1.73sq.m Normal [facility] GFR Information Average GFR for 70+ years old = 75. Normal [facility] Comment on above: Result Comment: [employer] aviva Kidney disease, GFR = <60. Kidney failure, GFR = <15. The GFR estimate is not adjusted for extreme body surface area or acute process, nor has it been validated for women or ethnic groups other than and . Glucose [Mass/Vol] 100 mg/dL Normal 70-100 [facility] Comment on above: Result Comment: NORMAL <100 mg/dL PREDIABETES 101-126 mg/dL DIABETES 126 mg/dL or higher Potassium [Moles/Vol] 4.4 mmol/L Normal 3.5-5.[address] [facility] Sodium [Moles/Vol] 135 mmol/L Low 137-145 [facility] Urea nitrogen [Mass/Vol] 17 mg/dL Normal 7-20 [facility] C REACTIVE PROTEINon 024 CRP [Mass/Vol] 22.7 mg/L High 0-10 [facility] CBCon 02-06-2024 ABSOLUTE BAS 0.0 10*3/uL Normal 0.0-0.2 [facility] ABSOLUTE EOS 0.2 10*3/uL Normal 0.0-0.7 [facility] ABSOLUTE NEUTROPHIL COUNT 3.4 10*3/uL Normal 1.4-6.5 [facility] Basophils/100 WBC (Bld) 0.8 % Normal 0.0-2.0 [facility] DTYPE AUTO DIFF Normal [facility] Eosinophils/100 WBC (Bld) 2.8 % Normal 0.0-11.0 [facility] Lymphocytes (Bld) [#/Vol] 1.5 10*3/uL Normal 1.2-3.4 [facility] Lymphocytes/100 WBC (Bld) 25.0 % Normal 20.0-55.0 [facility] Monocytes (Bld) [#/Vol] 0.8 10*3/uL High 0.0-0.7 [facility] Monocytes/100 WBC (Bld) 12.9 % High 0.0-10.0 [facility] Neutrophils/100 WBC (Bld) 58.5 % Normal 37.0-75.0 [facility] Erythrocyte distribution width (RBC) [Ratio] 15.2 % High 11.5-14.5 [facility] Hematocrit (Bld) [Volume fraction] 29.6 % Low 36.0-48.0 [facility] Hemoglobin (Bld) [Mass/Vol] 10.1 g/dL Low 12.0-16.0 [facility] MCH (RBC) [Entitic mass] 32.5 pg Normal 26.0-35.0 [facility] MCHC (RBC) [Mass/Vol] 34.0 g/dL Normal 27.0-37.[address] [facility] MCV (RBC) [Entitic vol] 95.7 fL Normal 80.0-100.0 [facility] Platelet mean volume (Bld) [Entitic vol] 6.7 fL Low 7.4-11.0 [facility] Platelets (Bld) [#/Vol] 365 10*3/uL Normal 130-400 [facility] RBC (Bld) [#/Vol] 3.10 10*6/uL Low 4.0-5.4 [facility] WBC (Bld) [#/Vol] 5.8 10*3/uL Normal 3.6-11.0 [facility] Laboratory - Chemistry and C hemistry - challengeon 02-06-2024 Anion gap [Moles/Vol] 2 mmol/L Low [facility] Calcium [Mass/Vol] 8.6 mg/dL [facility] Chloride [Moles/Vol] 104 mmol/L [facility] CO2 [Moles/Vol] 29 mmol/L [facility] Creatinine [Mass/Vol] 0.80 mg/dL [facility] CRP [Mass/Vol] 22.7 mg/L High 0 - 10 MG/L [facility] GFR/1.73 sq M.predicted among blacks MDRD (S/P/Bld) [Vol rate/Area] 89 mL/min/{1.73_m2} ml/min/1.73sq .m [facility] GFR/1.73 sq M.predicted among non-blacks MDRD (S/P/Bld) [Vol rate/Area] 73 mL/min/{1.73_m2} ml/min/1.73sq .m [facility] Glucose post fast [Mass/Vol] 100 mg/dL [facility] Potassium [Moles/Vol] 4.4 mmol/L [facility] Sodium [Moles/Vol] 135 mmol/L Low [facility] Urea nitrogen [Mass/Vol] 17 mg/dL [facility] Laboratory - Hematology and Cell countson 02-06-2024 Basophils/100 WBC (Bld) 0.8 % 0.0 - 2.0 % [facility] Differential cell count method Nom (Bld) AUTO DIFF % [facility] Eosinophils (Bld) [#/Vol] 0.2 10*3/uL 0.0 - 0.7 10*3/uL [facility] Eosinophils/100 WBC (Bld) 2.8 % 0.0 - 11.0 % [facility] Erythrocyte distribution width (RBC) [Ratio] 15.2 % High 11.5 - 14.5 % [facility] Hematocrit (Bld) [Volume fraction] 29.6 % Low 36.0 - 48.0 % [facility] Hemoglobin (Bld) [Mass/Vol] 10.1 g/dL Low [facility] Lymphocytes (Bld) [#/Vol] 1.5 10*3/uL 1.2 - 3.4 10*3/uL [facility] Lymphocytes/100 WBC (Bld) 25.0 % 20.0 - 55.0 % [facility] MCH (RBC) [Entitic mass] 32.5 pg 26.0 - 35.0 PG [facility] MCHC (RBC) [Mass/Vol] 34.0 g/dL [facility] MCV (RBC) [Entitic vol] 95.7 fL [facility] Monocytes (Bld) [#/Vol] 0.8 10*3/uL High 0.0 - 0.7 10*3/uL [facility] Monocytes/100 WBC (Bld) 12.9 % High 0.0 - 10.0 % [facility] Neutrophils (Bld) [#/Vol] 3.4 10*3/uL 1.4 - 6.5 10*3/uL [facility] Neutrophils/100 WBC (Bld) 58.5 % 37.0 - 75.0 % [facility] Platelet mean volume (Bld) [Entitic vol] 6.7 fL Low [facility] Platelets (Bld) [#/Vol] 365 10*3/uL 130 - 400 10*3/uL [facility] RBC (Bld) [#/Vol] 3.10 10*6/uL Low 4.0 - 5.4 10*6/uL [facility] WBC (Bld) [#/Vol] 5.8 10*3/uL 3.6 - 11.0 10*3/uL [facility] No Panel Informationon 02-05 GFR COMMENT Average GFR for 70+ years old = 75. [facility] Interpretation and review of laboratory results Abnormal [facility] ABSOLUTE BASOPHIL COUNT 0.0 10*3/uL 0.0 - 0.2 10*3/uL [facility] Interpretation and review of laboratory results Abnormal [facility] BMP FASTINGon 02-04-2023 Anion gap [Moles/Vol] 1 mmol/L Low 8-[address] [facility] Comment on above: Performed By: #### A CBC ####Testing performed at [address] [address] Calcium [Mass/Vol] 8.8 mg/dL Normal 8.4-10.2 [facility] Comment on above: Performed By: #### A CBC ####Testing performed at [address] [address] Chloride [Moles/Vol] 104 mmol/L Normal 98-107 [facility] Comment on above: Result Comment: Shonda matthews note: Triglyceride levels of 600mg/dL or higher may positively bias chloride results by approximately 2.1 mmol Performed By: #### A CBC ####Testing performed at [address] [address] CO2 [Moles/Vol] 30 mmol/L Normal 22-30 [facility] Comment on above: Performed By: #### A CBC ####Testing performed at [address] [address] Creatinine [Mass/Vol] 0.80 mg/dL Normal 0.7-1.[address] [facility] Comment on above: Performed By: #### A CBC ####Testing performed at [address] [address] EST. GFR, 89 ml/min/1.73sq.m [facility] Comment on above: Performed By: #### A CBC ####Testing performed at [address] [address] EST. GFR,Non 73 ml/min/1.73sq.m [facility] Comment on above: Performed By: #### A CBC ####Testing performed at [address] [address] GFR Information Average GFR for 70+ years old = 75. Normal [facility] Comment on above: Result Comment: [employer] aviva Kidney disease, GFR = <60. Kidney failure, GFR = <15. The GFR estimate is not adjusted for extreme body surface area or acute process, nor has it been validated for women or ethnic groups other than and . Performed By: #### A CBC ####Testing performed at [address] [address] Glucose [Mass/Vol] 101 mg/dL High 70-100 [facility] Comment on above: Result Comment: NORMAL <100 mg/dL PREDIABETES 101-126 mg/dL DIABETES 126 mg/dL or higher Performed By: #### A CBC ####Testing performed at [address] [address] Potassium [Moles/Vol] 4.3 mmol/L Normal 3.5-5.[address] [facility] Comment on above: Performed By: #### A CBC ####Testing performed at [address] [address] Sodium [Moles/Vol] 135 mmol/L Low 137-145 [facility] Comment on above: Performed By: #### A CBC ####Testing performed at [address] [address] Urea nitrogen [Mass/Vol] 14 mg/dL Normal 7-20 [facility] Comment on above: Performed By: #### A CBC ####Testing performed at [address] [address] C REACTIVE PROTEINon 02-04- 024 CRP [Mass/Vol] 21.0 mg/L High 0-10 [facility] Comment on above: Performed By: #### A CBC ####Testing performed at [address] [address] CBCon 02-05-2024 ABSOLUTE BAS 0.0 10*3/uL Normal 0.0-0.2 [facility] Comment on above: Performed By: #### A CBC ####Testing performed at [address] [place] [address] ABSOLUTE EOS 0.1 10*3/uL Normal 0.0-0.7 [facility] Comment on above: Performed By: #### A CBC ####Testing performed at [address] [address] ABSOLUTE NEUTROPHIL COUNT 3.1 10*3/uL Normal 1.4-6.5 [facility] Comment on above: Performed By: #### A CBC ####Testing performed at [address] [address] Basophils/100 WBC (Bld) 0.9 % Normal 0.0-2.0 [facility] Comment on above: Performed By: #### A CBC ####Testing performed at [address] [place] [address] DTYPE AUTO DIFF Normal [facility] Comment on above: Performed By: #### A CBC ####Testing performed at [address] [place] [address] Eosinophils/100 WBC (Bld) 2.6 % Normal 0.0-11.0 [facility] Comment on above: Performed By: #### A CBC ####Testing performed at [address] [place] [address] Lymphocytes (Bld) [#/Vol] 1.2 10*3/uL Normal 1.2-3.4 [facility] Comment on above: Performed By: #### A CBC ####Testing performed at [address] [place] [address] Lymphocytes/100 WBC (Bld) 23.7 % Normal 20.0-55.0 [facility] Comment on above: Performed By: #### A CBC ####Testing performed at [address] [address] Monocytes (Bld) [#/Vol] 0.6 10*3/uL Normal 0.0-0.7 [facility] Comment on above: Performed By: #### A CBC ####Testing performed at [address] [address] Monocytes/100 WBC (Bld) 11.8 % High 0.0-10.0 [facility] Comment on above: Performed By: #### A CBC ####Testing performed at [address] [id number] Neutrophils/100 WBC (Bld) 61.0 % Normal 37.0-75.0 [facility] Comment on above: Performed By: #### A CBC ####[place] [address] Erythrocyte distribution width (RBC) [Ratio] 15.2 % High 11.5-14.5 [facility] Comment on above: Performed By: #### A CBC ####Testing performed at [address] [address] Hematocrit (Bld) [Volume fraction] 30.8 % Low 36.0-48.0 [facility] Comment on above: Performed By: #### A CBC ####Testing performed at [address] [address] Hemoglobin (Bld) [Mass/Vol] 10.4 g/dL Low 12.0-16.0 [facility] Comment on above: Performed By: #### A CBC ####Testing performed at [address] [address] MCH (RBC) [Entitic mass] 32.3 pg Normal 26.0-35.0 [facility] Comment on above: Performed By: #### A CBC ####Testing performed at [address] [address] MCHC (RBC) [Mass/Vol] 33.7 g/dL Normal 27.0-37.[address] [facility] Comment on above: Performed By: #### A CBC ####Testing performed at [address] [address] MCV (RBC) [Entitic vol] 95.8 fL Normal 80.0-100.0 [facility] Comment on above: Performed By: #### A CBC ####Testing performed at [address] [address] Platelet mean volume (Bld) [Entitic vol] 6.6 fL Low 7.4-11.0 [facility] Comment on above: Performed By: #### A CBC ####[place] [address] Platelets (Bld) [#/Vol] 378 10*3/uL Normal 130-400 [facility] Comment on above: Performed By: #### A CBC ####Testing performed at [address] [address] RBC (Bld) [#/Vol] 3.22 10*6/uL Low 4.0-5.4 [facility] Comment on above: Performed By: #### A CBC ####Testing performed at [address] [address] WBC (Bld) [#/Vol] 5.0 10*3/uL Normal 3.6-11.0 [facility] Comment on above: Performed By: #### A CBC ####Testing performed at [address] [address] Laboratory - Chemistry and C hemistry - challengeon 02-05-2024 Anion gap [Moles/Vol] 1 mmol/L Low [facility] Calcium [Mass/Vol] 8.8 mg/dL [facility] Chloride [Moles/Vol] 104 mmol/L [facility] CO2 [Moles/Vol] 30 mmol/L [facility] Creatinine [Mass/Vol] 0.80 mg/dL [facility] CRP [Mass/Vol] 21.0 mg/L High 0 - 10 MG/L [facility] GFR/1.73 sq M.predicted among blacks MDRD (S/P/Bld) [Vol rate/Area] 89 mL/min/{1.73_m2} ml/min/1.73sq .m [facility] GFR/1.73 sq M.predicted among non-blacks MDRD (S/P/Bld) [Vol rate/Area] 73 mL/min/{1.73_m2} ml/min/1.73sq .m [facility] Glucose post fast [Mass/Vol] 101 mg/dL High [facility] Potassium [Moles/Vol] 4.3 mmol/L [facility] Sodium [Moles/Vol] 135 mmol/L Low [facility] Urea nitrogen [Mass/Vol] 14 mg/dL [facility] Laboratory - Hematology and Cell countson 02-05-2024 Basophils/100 WBC (Bld) 0.9 % 0.0 - 2.0 % [facility] Differential cell count method Nom (Bld) AUTO DIFF % [facility] Eosinophils (Bld) [#/Vol] 0.1 10*3/uL 0.0 - 0.7 10*3/uL [facility] Eosinophils/100 WBC (Bld) 2.6 % 0.0 - 11.0 % [facility] Erythrocyte distribution width (RBC) [Ratio] 15.2 % High 11.5 - 14.5 % [facility] Hematocrit (Bld) [Volume fraction] 30.8 % Low 36.0 - 48.0 % [facility] Hemoglobin (Bld) [Mass/Vol] 10.4 g/dL Low [facility] Lymphocytes (Bld) [#/Vol] 1.2 10*3/uL 1.2 - 3.4 10*3/uL [facility] Lymphocytes/100 WBC (Bld) 23.7 % 20.0 - 55.0 % [facility] MCH (RBC) [Entitic mass] 32.3 pg 26.0 - 35.0 PG [facility] MCHC (RBC) [Mass/Vol] 33.7 g/dL [facility] MCV (RBC) [Entitic vol] 95.8 fL [facility] Monocytes (Bld) [#/Vol] 0.6 10*3/uL 0.0 - 0.7 10*3/uL [facility] Monocytes/100 WBC (Bld) 11.8 % High 0.0 - 10.0 % [facility] Neutrophils (Bld) [#/Vol] 3.1 10*3/uL 1.4 - 6.5 10*3/uL [facility] Neutrophils/100 WBC (Bld) 61.0 % 37.0 - 75.0 % [facility] Platelet mean volume (Bld) [Entitic vol] 6.6 fL Low [facility] Platelets (Bld) [#/Vol] 378 10*3/uL 130 - 400 10*3/uL [facility] RBC (Bld) [#/Vol] 3.22 10*6/uL Low 4.0 - 5.4 10*6/uL [facility] WBC (Bld) [#/Vol] 5.0 10*3/uL 3.6 - 11.0 10*3/uL [facility] No Panel Informationon 02-04 GFR COMMENT Average GFR for 70+ years old = 75. [facility] Interpretation and review of laboratory results Abnormal [facility] ABSOLUTE BASOPHIL COUNT 0.0 10*3/uL 0.0 - 0.2 10*3/uL [facility] Interpretation and review of laboratory results Abnormal [facility] BMP FASTINGon 02-04-2024 Anion gap [Moles/Vol] 1 mmol/L Low 8-[address] [facility] Calcium [Mass/Vol] 8.8 mg/dL Normal 8.4-10.2 [facility] Chloride [Moles/Vol] 104 mmol/L Normal 98-107 [facility] Comment on above: Result Comment: Shonda matthews note: Triglyceride levels of 600mg/dL or higher may positively bias chloride results by approximately 2.1 mmol CO2 [Moles/Vol] 31 mmol/L High 22-30 [facility] Creatinine [Mass/Vol] 0.80 mg/dL Normal 0.7-1.[address] [facility] EST. GFR, 89 ml/min/1.73sq.m Normal [facility] EST. GFR,Non 73 ml/min/1.73sq.m Normal [facility] GFR Information Average GFR for 70+ years old = 75. Normal [facility] Comment on above: Result Comment: [employer]ging [employer] aviva Kidney disease, GFR = <60. Kidney failure, GFR = <15. The GFR estimate is not adjusted for extreme body surface area or acute process, nor has it been validated for women or ethnic groups other than and . Glucose [Mass/Vol] 96 mg/dL Normal 70-100 [facility] Comment on above: Result Comment: NORMAL <100 mg/dL PREDIABETES 101-126 mg/dL DIABETES 126 mg/dL or higher Potassium [Moles/Vol] 4.4 mmol/L Normal 3.5-5.[address] [facility] Sodium [Moles/Vol] 136 mmol/L Low 137-145 [facility] Urea nitrogen [Mass/Vol] 18 mg/dL Normal 7-20 [facility] C REACTIVE PROTEINon 024 CRP [Mass/Vol] 21.4 mg/L High 0-10 [facility] CBCon 02-04-2024 ABSOLUTE BAS 0.0 10*3/uL Normal 0.0-0.2 [facility] ABSOLUTE EOS 0.2 10*3/uL Normal 0.0-0.7 [facility] ABSOLUTE NEUTROPHIL COUNT 3.5 10*3/uL Normal 1.4-6.5 [facility] Basophils/100 WBC (Bld) 0.7 % Normal 0.0-2.0 [facility] DTYPE AUTO DIFF Normal [facility] Eosinophils/100 WBC (Bld) 3.2 % Normal 0.0-11.0 [facility] Lymphocytes (Bld) [#/Vol] 1.5 10*3/uL Normal 1.2-3.4 [facility] Lymphocytes/100 WBC (Bld) 24.7 % Normal 20.0-55.0 [facility] Monocytes (Bld) [#/Vol] 0.8 10*3/uL High 0.0-0.7 [facility] Monocytes/100 WBC (Bld) 12.5 % High 0.0-10.0 [facility] Neutrophils/100 WBC (Bld) 58.9 % Normal 37.0-75.0 [facility] Erythrocyte distribution width (RBC) [Ratio] 15.5 % High 11.5-14.5 [facility] Hematocrit (Bld) [Volume fraction] 30.0 % Low 36.0-48.0 [facility] Hemoglobin (Bld) [Mass/Vol] 10.2 g/dL Low 12.0-16.0 [facility] MCH (RBC) [Entitic mass] 32.4 pg Normal 26.0-35.0 [facility] MCHC (RBC) [Mass/Vol] 33.8 g/dL Normal 27.0-37.[address] [facility] MCV (RBC) [Entitic vol] 95.7 fL Normal 80.0-100.0 [facility] Platelet mean volume (Bld) [Entitic vol] 6.8 fL Low 7.4-11.0 [facility] Platelets (Bld) [#/Vol] 415 10*3/uL High 130-400 [facility] RBC (Bld) [#/Vol] 3.14 10*6/uL Low 4.0-5.4 [facility] WBC (Bld) [#/Vol] 6.0 10*3/uL Normal 3.6-11.0 [facility] Laboratory - Chemistry and C hemistry - challengeon 02-04-2024 Anion gap [Moles/Vol] 1 mmol/L Low [facility] Calcium [Mass/Vol] 8.8 mg/dL [facility] Chloride [Moles/Vol] 104 mmol/L [facility] CO2 [Moles/Vol] 31 mmol/L High [facility] Creatinine [Mass/Vol] 0.80 mg/dL [facility] CRP [Mass/Vol] 21.4 mg/L High 0 - 10 MG/L [facility] GFR/1.73 sq M.predicted among blacks MDRD (S/P/Bld) [Vol rate/Area] 89 mL/min/{1.73_m2} ml/min/1.73sq .m [facility] GFR/1.73 sq M.predicted among non-blacks MDRD (S/P/Bld) [Vol rate/Area] 73 mL/min/{1.73_m2} ml/min/1.73sq .m [facility] Glucose post fast [Mass/Vol] 96 mg/dL [facility] Potassium [Moles/Vol] 4.4 mmol/L [facility] Sodium [Moles/Vol] 136 mmol/L Low [facility] Urea nitrogen [Mass/Vol] 18 mg/dL [facility] Laboratory - Hematology and Cell countson 02-04-2024 Basophils/100 WBC (Bld) 0.7 % 0.0 - 2.0 % [facility] Differential cell count method Nom (Bld) AUTO DIFF % [facility] Eosinophils (Bld) [#/Vol] 0.2 10*3/uL 0.0 - 0.7 10*3/uL [facility] Eosinophils/100 WBC (Bld) 3.2 % 0.0 - 11.0 % [facility] Erythrocyte distribution width (RBC) [Ratio] 15.5 % High 11.5 - 14.5 % [facility] Hematocrit (Bld) [Volume fraction] 30.0 % Low 36.0 - 48.0 % [facility] Hemoglobin (Bld) [Mass/Vol] 10.2 g/dL Low [facility] Lymphocytes (Bld) [#/Vol] 1.5 10*3/uL 1.2 - 3.4 10*3/uL [facility] Lymphocytes/100 WBC (Bld) 24.7 % 20.0 - 55.0 % [facility] MCH (RBC) [Entitic mass] 32.4 pg 26.0 - 35.0 PG [facility] MCHC (RBC) [Mass/Vol] 33.8 g/dL [facility] MCV (RBC) [Entitic vol] 95.7 fL [facility] Monocytes (Bld) [#/Vol] 0.8 10*3/uL High 0.0 - 0.7 10*3/uL [facility] Monocytes/100 WBC (Bld) 12.5 % High 0.0 - 10.0 % [facility] Neutrophils (Bld) [#/Vol] 3.5 10*3/uL 1.4 - 6.5 10*3/uL [facility] Neutrophils/100 WBC (Bld) 58.9 % 37.0 - 75.0 % [facility] Platelet mean volume (Bld) [Entitic vol] 6.8 fL Low [facility] Platelets (Bld) [#/Vol] 415 10*3/uL High 130 - 400 10*3/uL [facility] RBC (Bld) [#/Vol] 3.14 10*6/uL Low 4.0 - 5.4 10*6/uL [facility] WBC (Bld) [#/Vol] 6.0 10*3/uL 3.6 - 11.0 10*3/uL [facility] No Panel Informationon 02-03 ABSOLUTE BASOPHIL COUNT 0.0 10*3/uL 0.0 - 0.2 10*3/uL [facility] Interpretation and review of laboratory results Abnormal [facility] GFR COMMENT Average GFR for 70+ years old = 75. [facility] Interpretation and review of laboratory results Abnormal [facility] BMP FASTINGon 02-03-2024 Anion gap [Moles/Vol] 2 mmol/L Low 8-[address] [facility] Calcium [Mass/Vol] 9.1 mg/dL Normal 8.4-10.2 [facility] Chloride [Moles/Vol] 104 mmol/L Normal 98-107 [facility] Comment on above: Result Comment: Shonda matthews note: Triglyceride levels of 600mg/dL or higher may positively bias chloride results by approximately 2.1 mmol CO2 [Moles/Vol] 29 mmol/L Normal 22-30 [facility] Creatinine [Mass/Vol] 0.90 mg/dL Normal 0.7-1.[address] [facility] EST. GFR, 77 ml/min/1.73sq.m Normal [facility] EST. GFR,Non 64 ml/min/1.73sq.m Normal [facility] GFR Information Average GFR for 70+ years old = 75. Normal [facility] Comment on above: Result Comment: [employer] aviva Kidney disease, GFR = <60. Kidney failure, GFR = <15. The GFR estimate is not adjusted for extreme body surface area or acute process, nor has it been validated for women or ethnic groups other than and . Glucose [Mass/Vol] 100 mg/dL Normal 70-100 [facility] Comment on above: Result Comment: NORMAL <100 mg/dL PREDIABETES 101-126 mg/dL DIABETES 126 mg/dL or higher Potassium [Moles/Vol] 4.4 mmol/L Normal 3.5-5.[address] [facility] Sodium [Moles/Vol] 135 mmol/L Low 137-145 [facility] Urea nitrogen [Mass/Vol] 17 mg/dL Normal 7-20 [facility] C REACTIVE PROTEINon 024 CRP [Mass/Vol] 21.9 mg/L High 0-10 [facility] CBCon 02-03-2024 ABSOLUTE BAS 0.1 10*3/uL Normal 0.0-0.2 [facility] ABSOLUTE EOS 0.2 10*3/uL Normal 0.0-0.7 [facility] ABSOLUTE NEUTROPHIL COUNT 3.6 10*3/uL Normal 1.4-6.5 [facility] Basophils/100 WBC (Bld) 1.2 % Normal 0.0-2.0 [facility] DTYPE AUTO DIFF Normal [facility] Eosinophils/100 WBC (Bld) 3.4 % Normal 0.0-11.0 [facility] Lymphocytes (Bld) [#/Vol] 1.6 10*3/uL Normal 1.2-3.4 [facility] Lymphocytes/100 WBC (Bld) 26.1 % Normal 20.0-55.0 [facility] Monocytes (Bld) [#/Vol] 0.7 10*3/uL Normal 0.0-0.7 [facility] Monocytes/100 WBC (Bld) 11.8 % High 0.0-10.0 [facility] Neutrophils/100 WBC (Bld) 57.5 % Normal 37.0-75.0 [facility] Erythrocyte distribution width (RBC) [Ratio] 15.0 % High 11.5-14.5 [facility] Hematocrit (Bld) [Volume fraction] 31.8 % Low 36.0-48.0 [facility] Hemoglobin (Bld) [Mass/Vol] 10.7 g/dL Low 12.0-16.0 [facility] MCH (RBC) [Entitic mass] 32.3 pg Normal 26.0-35.0 [facility] MCHC (RBC) [Mass/Vol] 33.7 g/dL Normal 27.0-37.[address] [facility] MCV (RBC) [Entitic vol] 95.8 fL Normal 80.0-100.0 [facility] Platelet mean volume (Bld) [Entitic vol] 6.4 fL Low 7.4-11.0 [facility] Platelets (Bld) [#/Vol] 472 10*3/uL High 130-400 [facility] RBC (Bld) [#/Vol] 3.31 10*6/uL Low 4.0-5.4 [facility] WBC (Bld) [#/Vol] 6.3 10*3/uL Normal 3.6-11.0 [facility] Laboratory - Chemistry and C hemistry - challengeon 02-03-2024 Bilirubin Ql (U) Negative NEGATIVE [facility] pH (U) 7.0 [pH] 5.0 - 7.0 [facility] Specific gravity (U) [Rel density] 1.015 1.010 - 1.025 [facility] Urobilinogen (U) [Mass/Vol] 0.2 mg/dL [facility] Anion gap [Moles/Vol] 2 mmol/L Low [facility] Calcium [Mass/Vol] 9.1 mg/dL [facility] Chloride [Moles/Vol] 104 mmol/L [facility] CO2 [Moles/Vol] 29 mmol/L [facility] Creatinine [Mass/Vol] 0.90 mg/dL [facility] CRP [Mass/Vol] 21.9 mg/L High 0 - 10 MG/L [facility] GFR/1.73 sq M.predicted among blacks MDRD (S/P/Bld) [Vol rate/Area] 77 mL/min/{1.73_m2} ml/min/1.73sq .m [facility] GFR/1.73 sq M.predicted among non-blacks MDRD (S/P/Bld) [Vol rate/Area] 64 mL/min/{1.73_m2} ml/min/1.73sq .m [facility] Glucose post fast [Mass/Vol] 100 mg/dL [facility] Potassium [Moles/Vol] 4.4 mmol/L [facility] Sodium [Moles/Vol] 135 mmol/L Low [facility] Urea nitrogen [Mass/Vol] 17 mg/dL [facility] Laboratory - Hematology and Cell countson 02-03-2024 Hemoglobin Ql (U) Negative NEGATIVE [facility] Basophils/100 WBC (Bld) 1.2 % 0.0 - 2.0 % [facility] Differential cell count method Nom (Bld) AUTO DIFF % [facility] Eosinophils (Bld) [#/Vol] 0.2 10*3/uL 0.0 - 0.7 10*3/uL [facility] Eosinophils/100 WBC (Bld) 3.4 % 0.0 - 11.0 % [facility] Erythrocyte distribution width (RBC) [Ratio] 15.0 % High 11.5 - 14.5 % [facility] Hematocrit (Bld) [Volume fraction] 31.8 % Low 36.0 - 48.0 % [facility] Hemoglobin (Bld) [Mass/Vol] 10.7 g/dL Low [facility] Lymphocytes (Bld) [#/Vol] 1.6 10*3/uL 1.2 - 3.4 10*3/uL [facility] Lymphocytes/100 WBC (Bld) 26.1 % 20.0 - 55.0 % [facility] MCH (RBC) [Entitic mass] 32.3 pg 26.0 - 35.0 PG [facility] MCHC (RBC) [Mass/Vol] 33.7 g/dL [facility] MCV (RBC) [Entitic vol] 95.8 fL [facility] Monocytes (Bld) [#/Vol] 0.7 10*3/uL 0.0 - 0.7 10*3/uL [facility] Monocytes/100 WBC (Bld) 11.8 % High 0.0 - 10.0 % [facility] Neutrophils (Bld) [#/Vol] 3.6 10*3/uL 1.4 - 6.5 10*3/uL [facility] Neutrophils/100 WBC (Bld) 57.5 % 37.0 - 75.0 % [facility] Platelet mean volume (Bld) [Entitic vol] 6.4 fL Low [facility] Platelets (Bld) [#/Vol] 472 10*3/uL High 130 - 400 10*3/uL [facility] RBC (Bld) [#/Vol] 3.31 10*6/uL Low 4.0 - 5.4 10*6/uL [facility] WBC (Bld) [#/Vol] 6.3 10*3/uL 3.6 - 11.0 10*3/uL [facility] Laboratory - Specimen inform ationon 02-03-2024 Clarity (U) CLEAR CLEAR [facility] Color (U) YELLOW YELLOW [facility] Laboratory - Urinalysison Glucose Test strip (U) [Mass/Vol] Negative NEGATIVE mg/dl [facility] Ketones (U) [Mass/Vol] Negative NEGATIVE mg/dl [facility] Leukocyte esterase Test strip Ql (U) Negative NEGATIVE [facility] Nitrite Ql (U) Negative NEGATIVE [facility] Protein Ql (U) Negative NEGATIVE mg/dl [facility] No Panel Informationon 02-02 [facility] GFR COMMENT Average GFR for 70+ years old = 75. [facility] Interpretation and review of laboratory results Abnormal [facility] ABSOLUTE BASOPHIL COUNT 0.1 10*3/uL 0.0 - 0.2 10*3/uL [facility] Interpretation and review of laboratory results Abnormal [facility] URINE MACROSCOPICon 02-03-20 Bilirubin Ql (U) Negative Normal NEGATIVE [facility] Clarity (U) CLEAR Normal CLEAR [facility] Color (U) YELLOW Normal YELLOW [facility] Glucose Ql (U) Negative Normal NEGATIVE [facility] pH (U) 7.0 [pH] Normal 5.0-7.0 [facility] URINE HEMOGLOBIN Negative Normal NEGATIVE [facility] URINE KETONE Negative Normal NEGATIVE [facility] URINE LEUKOTEST Negative Normal NEGATIVE [facility] URINE NITRATES Negative Normal NEGATIVE [facility] URINE SPEC GRAVITY 1.015 Normal 1.010-1.025 [facility] URINE TOTAL PROTEIN Negative Normal NEGATIVE [facility] Urobilinogen Qn (U) 0.2 {Monique'U}/dL Normal 0.2-1.0 [facility] BMP FASTINGon 02-02-2024 Anion gap [Moles/Vol] 1 mmol/L Low 8-[address] [facility] Comment on above: Performed By: #### A CBC #### [place] [address] Calcium [Mass/Vol] 8.9 mg/dL Normal 8.4-10.2 [facility] Comment on above: Performed By: #### A CBC #### Testing performed at [place] [id number] Chloride [Moles/Vol] 103 mmol/L Normal 98-107 [facility] Comment on above: Result Comment: Plea se note: Triglyceride levels of 600mg/dL or higher may positively bias chloride results by approximately 2.1 mmol Performed By: #### A CBC #### Testing performed at [address] [address] CO2 [Moles/Vol] 30 mmol/L Normal 22-30 [facility] Comment on above: Performed By: #### A CBC #### Testing performed at [address] [address] Creatinine [Mass/Vol] 0.90 mg/dL Normal 0.7-1.[address] [facility] Comment on above: Performed By: #### A CBC #### Testing performed at [address] [address] EST. GFR, 77 ml/min/1.73sq.m [facility] Comment on above: Performed By: #### A CBC #### Testing performed at [address] [place] [address] EST. GFR,Non 64 ml/min/1.73sq.m [facility] Comment on above: Performed By: #### A CBC #### Testing performed at [address] [address] GFR Information Average GFR for 70+ years old = 75. Normal [facility] Comment on above: Result Comment: [employer] aviva Kidney disease, GFR = <60. Kidney failure, GFR = <15. The GFR estimate is not adjusted for extreme body surface area or acute process, nor has it been validated for women or ethnic groups other than and . Performed By: #### A CBC #### Testing performed at [address] [address] Glucose [Mass/Vol] 103 mg/dL High 70-100 [facility] Comment on above: Result Comment: NORMAL <100 mg/dL PREDIABETES 101-126 mg/dL DIABETES 126 mg/dL or higher Performed By: #### A CBC #### Testing performed at [address] [address] Potassium [Moles/Vol] 4.2 mmol/L Normal 3.5-5.[address] [facility] Comment on above: Performed By: #### A CBC #### Testing performed at [address] [address] Sodium [Moles/Vol] 134 mmol/L Low 137-145 [facility] Comment on above: Performed By: #### A CBC #### Testing performed at [address] [address] Urea nitrogen [Mass/Vol] 18 mg/dL Normal 7-20 [facility] Comment on above: Performed By: #### A CBC #### Testing performed at [address] [place] [address] C REACTIVE PROTEINon 024 CRP [Mass/Vol] 26.3 mg/L High 0-10 [facility] Comment on above: Performed By: #### A CBC #### Testing performed at [address] [address] CBCon 02-02-2024 ABSOLUTE BAS 0.1 10*3/uL Normal 0.0-0.2 [facility] Comment on above: Performed By: #### A CBC #### Testing performed at [address] [address] ABSOLUTE EOS 0.2 10*3/uL Normal 0.0-0.7 [facility] Comment on above: Performed By: #### A CBC #### Testing performed at [address] [address] ABSOLUTE NEUTROPHIL COUNT 3.4 10*3/uL Normal 1.4-6.5 [facility] Comment on above: Performed By: #### A CBC #### Testing performed at [address] [address] Basophils/100 WBC (Bld) 0.9 % Normal 0.0-2.0 [facility] Comment on above: Performed By: #### A CBC #### Testing performed at [address] [place] [address] DTYPE AUTO DIFF Normal [facility] Comment on above: Performed By: #### A CBC #### Testing performed at [address] [address] Eosinophils/100 WBC (Bld) 3.7 % Normal 0.0-11.0 [facility] Comment on above: Performed By: #### A CBC #### Testing performed at [address] [address] Lymphocytes (Bld) [#/Vol] 1.6 10*3/uL Normal 1.2-3.4 [facility] Comment on above: Performed By: #### A CBC #### Testing performed at [place] [address] [place] [address] Lymphocytes/100 WBC (Bld) 26.5 % Normal 20.0-55.0 [facility] Comment on above: Performed By: #### A CBC #### Testing performed at [address] [address] Monocytes (Bld) [#/Vol] 0.8 10*3/uL High 0.0-0.7 [facility] Comment on above: Performed By: #### A CBC #### Testing performed at [address] [address] Monocytes/100 WBC (Bld) 12.8 % High 0.0-10.0 [facility] Comment on above: Performed By: #### A CBC #### Testing performed at [address] [address] Neutrophils/100 WBC (Bld) 56.1 % Normal 37.0-75.0 [facility] Comment on above: Performed By: #### A CBC #### Testing performed at [address] [address] Erythrocyte distribution width (RBC) [Ratio] 15.2 % High 11.5-14.5 [facility] Comment on above: Performed By: #### A CBC #### Testing performed at [address] [place] [address] Hematocrit (Bld) [Volume fraction] 31.1 % Low 36.0-48.0 [facility] Comment on above: Performed By: #### A CBC #### Testing performed at [address] [place] [address] Hemoglobin (Bld) [Mass/Vol] 10.5 g/dL Low 12.0-16.0 [facility] Comment on above: Performed By: #### A CBC #### Testing performed at [address] [address] MCH (RBC) [Entitic mass] 32.4 pg Normal 26.0-35.0 [facility] Comment on above: Performed By: #### A CBC #### Testing performed at [address] [address] MCHC (RBC) [Mass/Vol] 33.8 g/dL Normal 27.0-37.[address] [facility] Comment on above: Performed By: #### A CBC #### Testing performed at [address] [address] MCV (RBC) [Entitic vol] 95.9 fL Normal 80.0-100.0 [facility] Comment on above: Performed By: #### A CBC #### Testing performed at [address] [address] Platelet mean volume (Bld) [Entitic vol] 6.5 fL Low 7.4-11.0 [facility] Comment on above: Performed By: #### A CBC #### Testing performed at [address] [address] Platelets (Bld) [#/Vol] 429 10*3/uL High 130-400 [facility] Comment on above: Performed By: #### A CBC #### Testing performed at [address] [address] RBC (Bld) [#/Vol] 3.24 10*6/uL Low 4.0-5.4 [facility] Comment on above: Performed By: #### A CBC #### Testing performed at [address] [address] WBC (Bld) [#/Vol] 6.0 10*3/uL Normal 3.6-11.0 [facility] Comment on above: Performed By: #### A CBC #### Testing performed at [place] [address] [place] [address] Laboratory - Chemistry and C hemistry - challengeon 02-02-2024 Anion gap [Moles/Vol] 1 mmol/L Low [facility] Calcium [Mass/Vol] 8.9 mg/dL [facility] Chloride [Moles/Vol] 103 mmol/L [facility] CO2 [Moles/Vol] 30 mmol/L [facility] Creatinine [Mass/Vol] 0.90 mg/dL [facility] CRP [Mass/Vol] 26.3 mg/L High 0 - 10 MG/L [facility] GFR/1.73 sq M.predicted among blacks MDRD (S/P/Bld) [Vol rate/Area] 77 mL/min/{1.73_m2} ml/min/1.73sq .m [facility] GFR/1.73 sq M.predicted among non-blacks MDRD (S/P/Bld) [Vol rate/Area] 64 mL/min/{1.73_m2} ml/min/1.73sq .m [facility] Glucose post fast [Mass/Vol] 103 mg/dL High [facility] Potassium [Moles/Vol] 4.2 mmol/L [facility] Sodium [Moles/Vol] 134 mmol/L Low [facility] Urea nitrogen [Mass/Vol] 18 mg/dL [facility] Laboratory - Hematology and Cell countson 02-02-2024 Basophils/100 WBC (Bld) 0.9 % 0.0 - 2.0 % [facility] Differential cell count method Nom (Bld) AUTO DIFF % [facility] Eosinophils (Bld) [#/Vol] 0.2 10*3/uL 0.0 - 0.7 10*3/uL [facility] Eosinophils/100 WBC (Bld) 3.7 % 0.0 - 11.0 % [facility] Erythrocyte distribution width (RBC) [Ratio] 15.2 % High 11.5 - 14.5 % [facility] Hematocrit (Bld) [Volume fraction] 31.1 % Low 36.0 - 48.0 % [facility] Hemoglobin (Bld) [Mass/Vol] 10.5 g/dL Low [facility] Lymphocytes (Bld) [#/Vol] 1.6 10*3/uL 1.2 - 3.4 10*3/uL [facility] Lymphocytes/100 WBC (Bld) 26.5 % 20.0 - 55.0 % [facility] MCH (RBC) [Entitic mass] 32.4 pg 26.0 - 35.0 PG [facility] MCHC (RBC) [Mass/Vol] 33.8 g/dL [facility] MCV (RBC) [Entitic vol] 95.9 fL [facility] Monocytes (Bld) [#/Vol] 0.8 10*3/uL High 0.0 - 0.7 10*3/uL [facility] Monocytes/100 WBC (Bld) 12.8 % High 0.0 - 10.0 % [facility] Neutrophils (Bld) [#/Vol] 3.4 10*3/uL 1.4 - 6.5 10*3/uL [facility] Neutrophils/100 WBC (Bld) 56.1 % 37.0 - 75.0 % [facility] Platelet mean volume (Bld) [Entitic vol] 6.5 fL Low [facility] Platelets (Bld) [#/Vol] 429 10*3/uL High 130 - 400 10*3/uL [facility] RBC (Bld) [#/Vol] 3.24 10*6/uL Low 4.0 - 5.4 10*6/uL [facility] WBC (Bld) [#/Vol] 6.0 10*3/uL 3.6 - 11.0 10*3/uL [facility] No Panel Informationon 02-01 GFR COMMENT Average GFR for 70+ years old = 75. [facility] Interpretation and review of laboratory results Abnormal [facility] ABSOLUTE BASOPHIL COUNT 0.1 10*3/uL 0.0 - 0.2 10*3/uL [facility] Interpretation and review of laboratory results Abnormal [facility] BMP FASTINGon 02-01-2024 Anion gap [Moles/Vol] 2 mmol/L Low 03-[address] [facility] Calcium [Mass/Vol] 8.9 mg/dL Normal 8.4-10.2 [facility] Chloride [Moles/Vol] 103 mmol/L Normal 98-107 [facility] Comment on above: Result Comment: Shonda matthews note: Triglyceride levels of 600mg/dL or higher may positively bias chloride results by approximately 2.1 mmol CO2 [Moles/Vol] 28 mmol/L Normal 22-30 [facility] Creatinine [Mass/Vol] 0.90 mg/dL Normal 0.7-1.[address] [facility] EST. GFR, 77 ml/min/1.73sq.m Normal [facility] EST. GFR,Non 64 ml/min/1.73sq.m Normal [facility] GFR Information Average GFR for 70+ years old = 75. Normal [facility] Comment on above: Result Comment: [employer] aviva Kidney disease, GFR = <60. Kidney failure, GFR = <15. The GFR estimate is not adjusted for extreme body surface area or acute process, nor has it been validated for women or ethnic groups other than and . Glucose [Mass/Vol] 98 mg/dL Normal 70-100 [facility] Comment on above: Result Comment: NORMAL <100 mg/dL PREDIABETES 101-126 mg/dL DIABETES 126 mg/dL or higher Potassium [Moles/Vol] 4.4 mmol/L Normal 3.5-5.[address] [facility] Sodium [Moles/Vol] 133 mmol/L Low 137-145 [facility] Urea nitrogen [Mass/Vol] 14 mg/dL Normal 7-20 [facility] C REACTIVE PROTEINon 024 CRP [Mass/Vol] 26.1 mg/L High 0-10 [facility] CBCon 02-01-2024 ABSOLUTE BAS 0.1 10*3/uL Normal 0.0-0.2 [facility] ABSOLUTE EOS 0.1 10*3/uL Normal 0.0-0.7 [facility] ABSOLUTE NEUTROPHIL COUNT 3.0 10*3/uL Normal 1.4-6.5 [facility] Basophils/100 WBC (Bld) 1.1 % Normal 0.0-2.0 [facility] DTYPE AUTO DIFF Normal [facility] Eosinophils/100 WBC (Bld) 2.6 % Normal 0.0-11.0 [facility] Lymphocytes (Bld) [#/Vol] 1.7 10*3/uL Normal 1.2-3.4 [facility] Lymphocytes/100 WBC (Bld) 28.9 % Normal 20.0-55.0 [facility] Monocytes (Bld) [#/Vol] 0.9 10*3/uL High 0.0-0.7 [facility] Monocytes/100 WBC (Bld) 15.1 % High 0.0-10.0 [facility] Neutrophils/100 WBC (Bld) 52.3 % Normal 37.0-75.0 [facility] Erythrocyte distribution width (RBC) [Ratio] 14.8 % High 11.5-14.5 [facility] Hematocrit (Bld) [Volume fraction] 31.4 % Low 36.0-48.0 [facility] Hemoglobin (Bld) [Mass/Vol] 10.6 g/dL Low 12.0-16.0 [facility] MCH (RBC) [Entitic mass] 32.4 pg Normal 26.0-35.0 [facility] MCHC (RBC) [Mass/Vol] 33.9 g/dL Normal 27.0-37.[address] [facility] MCV (RBC) [Entitic vol] 95.5 fL Normal 80.0-100.0 [facility] Platelet mean volume (Bld) [Entitic vol] 6.4 fL Low 7.4-11.0 [facility] Platelets (Bld) [#/Vol] 479 10*3/uL High 130-400 [facility] RBC (Bld) [#/Vol] 3.29 10*6/uL Low 4.0-5.4 [facility] WBC (Bld) [#/Vol] 5.8 10*3/uL Normal 3.6-11.0 [facility] Laboratory - Chemistry and C hemistry - challengeon 02-01-2024 Anion gap [Moles/Vol] 2 mmol/L Low [facility] Calcium [Mass/Vol] 8.9 mg/dL [facility] Chloride [Moles/Vol] 103 mmol/L [facility] CO2 [Moles/Vol] 28 mmol/L [facility] Creatinine [Mass/Vol] 0.90 mg/dL [facility] CRP [Mass/Vol] 26.1 mg/L High 0 - 10 MG/L [facility] GFR/1.73 sq M.predicted among blacks MDRD (S/P/Bld) [Vol rate/Area] 77 mL/min/{1.73_m2} ml/min/1.73sq .m [facility] GFR/1.73 sq M.predicted among non-blacks MDRD (S/P/Bld) [Vol rate/Area] 64 mL/min/{1.73_m2} ml/min/1.73sq .m [facility] Glucose post fast [Mass/Vol] 98 mg/dL [facility] Potassium [Moles/Vol] 4.4 mmol/L [facility] Sodium [Moles/Vol] 133 mmol/L Low [facility] Urea nitrogen [Mass/Vol] 14 mg/dL [facility] Laboratory - Hematology and Cell countson 02-01-2024 Basophils/100 WBC (Bld) 1.1 % 0.0 - 2.0 % [facility] Differential cell count method Nom (Bld) AUTO DIFF % [facility] Eosinophils (Bld) [#/Vol] 0.1 10*3/uL 0.0 - 0.7 10*3/uL [facility] Eosinophils/100 WBC (Bld) 2.6 % 0.0 - 11.0 % [facility] Erythrocyte distribution width (RBC) [Ratio] 14.8 % High 11.5 - 14.5 % [facility] Hematocrit (Bld) [Volume fraction] 31.4 % Low 36.0 - 48.0 % [facility] Hemoglobin (Bld) [Mass/Vol] 10.6 g/dL Low [facility] Lymphocytes (Bld) [#/Vol] 1.7 10*3/uL 1.2 - 3.4 10*3/uL [facility] Lymphocytes/100 WBC (Bld) 28.9 % 20.0 - 55.0 % [facility] MCH (RBC) [Entitic mass] 32.4 pg 26.0 - 35.0 PG [facility] MCHC (RBC) [Mass/Vol] 33.9 g/dL [facility] MCV (RBC) [Entitic vol] 95.5 fL [facility] Monocytes (Bld) [#/Vol] 0.9 10*3/uL High 0.0 - 0.7 10*3/uL [facility] Monocytes/100 WBC (Bld) 15.1 % High 0.0 - 10.0 % [facility] Neutrophils (Bld) [#/Vol] 3.0 10*3/uL 1.4 - 6.5 10*3/uL [facility] Neutrophils/100 WBC (Bld) 52.3 % 37.0 - 75.0 % [facility] Platelet mean volume (Bld) [Entitic vol] 6.4 fL Low [facility] Platelets (Bld) [#/Vol] 479 10*3/uL High 130 - 400 10*3/uL [facility] RBC (Bld) [#/Vol] 3.29 10*6/uL Low 4.0 - 5.4 10*6/uL [facility] WBC (Bld) [#/Vol] 5.8 10*3/uL 3.6 - 11.0 10*3/uL [facility] No Panel Informationon 01-31 GFR COMMENT Average GFR for 70+ years old = 75. [facility] Interpretation and review of laboratory results Abnormal [facility] ABSOLUTE BASOPHIL COUNT 0.1 10*3/uL 0.0 - 0.2 10*3/uL [facility] Interpretation and review of laboratory results Abnormal [facility] BMP FASTINGon 01-31-2024 Anion gap [Moles/Vol] Negative Normal 8-[address] [facility] Calcium [Mass/Vol] 8.7 mg/dL Normal 8.4-10.2 [facility] Chloride [Moles/Vol] 102 mmol/L Normal 98-107 [facility] Comment on above: Result Comment: Shonda matthews note: Triglyceride levels of 600mg/dL or higher may positively bias chloride results by approximately 2.1 mmol CO2 [Moles/Vol] 33 mmol/L High 22-30 [facility] Creatinine [Mass/Vol] 1.10 mg/dL Normal 0.7-1.[address] [facility] EST. GFR, 61 ml/min/1.73sq.m Normal [facility] EST. GFR,Non 51 ml/min/1.73sq.m Normal [facility] GFR Information Average GFR for 70+ years old = 75. Normal [facility] Comment on above: Result Comment: [employer] aviva Kidney disease, GFR = <60. Kidney failure, GFR = <15. The GFR estimate is not adjusted for extreme body surface area or acute process, nor has it been validated for women or ethnic groups other than and . Glucose [Mass/Vol] 94 mg/dL Normal 70-100 [facility] Comment on above: Result Comment: NORMAL <100 mg/dL PREDIABETES 101-126 mg/dL DIABETES 126 mg/dL or higher Potassium [Moles/Vol] 4.5 mmol/L Normal 3.5-5.[address] [facility] Sodium [Moles/Vol] 134 mmol/L Low 137-145 [facility] Urea nitrogen [Mass/Vol] 12 mg/dL Normal 7-20 [facility] C REACTIVE PROTEINon 024 CRP [Mass/Vol] 27.5 mg/L High 0-10 [facility] CBCon 01-31-2024 ABSOLUTE BAS 0.1 10*3/uL Normal 0.0-0.2 [facility] ABSOLUTE EOS 0.2 10*3/uL Normal 0.0-0.7 [facility] ABSOLUTE NEUTROPHIL COUNT 2.5 10*3/uL Normal 1.4-6.5 [facility] Basophils/100 WBC (Bld) 1.4 % Normal 0.0-2.0 [facility] DTYPE AUTO DIFF Normal [facility] Eosinophils/100 WBC (Bld) 3.6 % Normal 0.0-11.0 [facility] Lymphocytes (Bld) [#/Vol] 1.5 10*3/uL Normal 1.2-3.4 [facility] Lymphocytes/100 WBC (Bld) 28.8 % Normal 20.0-55.0 [facility] Monocytes (Bld) [#/Vol] 0.8 10*3/uL High 0.0-0.7 [facility] Monocytes/100 WBC (Bld) 16.5 % High 0.0-10.0 [facility] Neutrophils/100 WBC (Bld) 49.7 % Normal 37.0-75.0 [facility] Erythrocyte distribution width (RBC) [Ratio] 14.9 % High 11.5-14.5 [facility] Hematocrit (Bld) [Volume fraction] 29.3 % Low 36.0-48.0 [facility] Hemoglobin (Bld) [Mass/Vol] 10.0 g/dL Low 12.0-16.0 [facility] MCH (RBC) [Entitic mass] 32.5 pg Normal 26.0-35.0 [facility] MCHC (RBC) [Mass/Vol] 34.1 g/dL Normal 27.0-37.[address] [facility] MCV (RBC) [Entitic vol] 95.2 fL Normal 80.0-100.0 [facility] Platelet mean volume (Bld) [Entitic vol] 6.3 fL Low 7.4-11.0 [facility] Platelets (Bld) [#/Vol] 439 10*3/uL High 130-400 [facility] RBC (Bld) [#/Vol] 3.08 10*6/uL Low 4.0-5.4 [facility] WBC (Bld) [#/Vol] 5.1 10*3/uL Normal 3.6-11.0 [facility] LIPASE,SERUMon 01-31-2024 LIPASE,SERUM 43 U/L Normal 23-300 [facility] LIVER PANELon 01-31-2024 Albumin [Mass/Vol] 3.0 g/dL Low 3.5-5.0 [facility] ALP [Catalytic activity/Vol] 107 U/L Normal 38-126 [facility] ALT [Catalytic activity/Vol] 13 U/L Normal <35 [facility] AST [Catalytic activity/Vol] 26 U/L Normal 14-36 [facility] Bilirubin [Mass/Vol] 0.2 mg/dL Normal 0.2-1.3 [facility] Bilirubin.indirect [Mass/Vol] 0.2 mg/dL Normal 0-0.4 [facility] Protein [Mass/Vol] 6.1 g/dL Low 6.3-8.2 [facility] Laboratory - Chemistry and C hemistry - challengeon 01-31-2024 Prealbumin [Mass/Vol] 11.9 mg/dL Low [facility] Albumin [Mass/Vol] 3.0 g/dL Low [facility] ALP [Catalytic activity/Vol] 107 U/L [facility] ALT [Catalytic activity/Vol] 13 U/L NINF [facility] Anion gap [Moles/Vol] Negative [facility] AST [Catalytic activity/Vol] 26 U/L [facility] Bilirubin [Mass/Vol] 0.2 mg/dL [facility] Bilirubin.direct [Mass/Vol] 0.2 mg/dL [facility] Calcium [Mass/Vol] 8.7 mg/dL [facility] Chloride [Moles/Vol] 102 mmol/L [facility] CO2 [Moles/Vol] 33 mmol/L High [facility] Creatinine [Mass/Vol] 1.10 mg/dL [facility] CRP [Mass/Vol] 27.5 mg/L High 0 - 10 MG/L [facility] GFR/1.73 sq M.predicted among blacks MDRD (S/P/Bld) [Vol rate/Area] 61 mL/min/{1.73_m2} ml/min/1.73sq .m [facility] GFR/1.73 sq M.predicted among non-blacks MDRD (S/P/Bld) [Vol rate/Area] 51 mL/min/{1.73_m2} ml/min/1.73sq .m [facility] Glucose post fast [Mass/Vol] 94 mg/dL [facility] Lipase [Catalytic activity/Vol] 43 U/L 23 - 300 U/L [facility] Potassium [Moles/Vol] 4.5 mmol/L [facility] Protein [Mass/Vol] 6.1 g/dL Low [facility] Sodium [Moles/Vol] 134 mmol/L Low [facility] Urea nitrogen [Mass/Vol] 12 mg/dL [facility] Laboratory - Hematology and Cell countson 01-31-2024 Basophils/100 WBC (Bld) 1.4 % 0.0 - 2.0 % [facility] Differential cell count method Nom (Bld) AUTO DIFF % [facility] Eosinophils (Bld) [#/Vol] 0.2 10*3/uL 0.0 - 0.7 10*3/uL [facility] Eosinophils/100 WBC (Bld) 3.6 % 0.0 - 11.0 % [facility] Erythrocyte distribution width (RBC) [Ratio] 14.9 % High 11.5 - 14.5 % [facility] Hematocrit (Bld) [Volume fraction] 29.3 % Low 36.0 - 48.0 % [facility] Hemoglobin (Bld) [Mass/Vol] 10.0 g/dL Low [facility] Lymphocytes (Bld) [#/Vol] 1.5 10*3/uL 1.2 - 3.4 10*3/uL [facility] Lymphocytes/100 WBC (Bld) 28.8 % 20.0 - 55.0 % [facility] MCH (RBC) [Entitic mass] 32.5 pg 26.0 - 35.0 PG [facility] MCHC (RBC) [Mass/Vol] 34.1 g/dL [facility] MCV (RBC) [Entitic vol] 95.2 fL [facility] Monocytes (Bld) [#/Vol] 0.8 10*3/uL High 0.0 - 0.7 10*3/uL [facility] Monocytes/100 WBC (Bld) 16.5 % High 0.0 - 10.0 % [facility] Neutrophils (Bld) [#/Vol] 2.5 10*3/uL 1.4 - 6.5 10*3/uL [facility] Neutrophils/100 WBC (Bld) 49.7 % 37.0 - 75.0 % [facility] Platelet mean volume (Bld) [Entitic vol] 6.3 fL Low [facility] Platelets (Bld) [#/Vol] 439 10*3/uL High 130 - 400 10*3/uL [facility] RBC (Bld) [#/Vol] 3.08 10*6/uL Low 4.0 - 5.4 10*6/uL [facility] WBC (Bld) [#/Vol] 5.1 10*3/uL 3.6 - 11.0 10*3/uL [facility] No Panel Informationon 01-30 Interpretation and review of laboratory results Abnormal [facility] GFR COMMENT Average GFR for 70+ years old = 75. [facility] Interpretation and review of laboratory results Abnormal [facility] ABSOLUTE BASOPHIL COUNT 0.1 10*3/uL 0.0 - 0.2 10*3/uL [facility] Interpretation and review of laboratory results Abnormal [facility] PREALBUMINon 01-31-2024 Prealbumin [Mass/Vol] 11.9 mg/dL Low 17.6-36.[address] [facility] BMP FASTINGon 01-30-2024 Anion gap [Moles/Vol] 3 mmol/L Low 8-[address] [facility] Calcium [Mass/Vol] 8.6 mg/dL Normal 8.4-10.2 [facility] Chloride [Moles/Vol] 101 mmol/L Normal 98-107 [facility] Comment on above: Result Comment: Shonda matthews note: Triglyceride levels of 600mg/dL or higher may positively bias chloride results by approximately 2.1 mmol CO2 [Moles/Vol] 31 mmol/L High 22-30 [facility] Creatinine [Mass/Vol] 1.00 mg/dL Normal 0.7-1.[address] [facility] EST. GFR, 68 ml/min/1.73sq.m [facility] EST. GFR,Non 57 ml/min/1.73sq.m [facility] GFR Information Average GFR for 70+ years old = 75. Normal [facility] Comment on above: Result Comment: [employer] aviva Kidney disease, GFR = <60. Kidney failure, GFR = <15. The GFR estimate is not adjusted for extreme body surface area or acute process, nor has it been validated for women or ethnic groups other than and . Glucose [Mass/Vol] 93 mg/dL Normal 70-100 [facility] Comment on above: Result Comment: NORMAL <100 mg/dL PREDIABETES 101-126 mg/dL DIABETES 126 mg/dL or higher Potassium [Moles/Vol] 4.4 mmol/L Normal 3.5-5.[address] [facility] Sodium [Moles/Vol] 135 mmol/L Low 137-145 [facility] Urea nitrogen [Mass/Vol] 10 mg/dL Normal 7-20 [facility] C REACTIVE PROTEINon 024 CRP [Mass/Vol] 25.8 mg/L High 0-10 [facility] CBCon 01-30-2024 ABSOLUTE BAS 0.1 10*3/uL Normal 0.0-0.2 [facility] ABSOLUTE EOS 0.2 10*3/uL Normal 0.0-0.7 [facility] ABSOLUTE NEUTROPHIL COUNT 2.9 10*3/uL Normal 1.4-6.5 [facility] Basophils/100 WBC (Bld) 1.2 % Normal 0.0-2.0 [facility] DTYPE AUTO DIFF Normal [facility] Eosinophils/100 WBC (Bld) 3.0 % Normal 0.0-11.0 [facility] Lymphocytes (Bld) [#/Vol] 1.4 10*3/uL Normal 1.2-3.4 [facility] Lymphocytes/100 WBC (Bld) 26.1 % Normal 20.0-55.0 [facility] Monocytes (Bld) [#/Vol] 0.8 10*3/uL High 0.0-0.7 [facility] Monocytes/100 WBC (Bld) 15.2 % High 0.0-10.0 [facility] Neutrophils/100 WBC (Bld) 54.5 % Normal 37.0-75.0 [facility] Erythrocyte distribution width (RBC) [Ratio] 15.0 % High 11.5-14.5 [facility] Hematocrit (Bld) [Volume fraction] 29.9 % Low 36.0-48.0 [facility] Hemoglobin (Bld) [Mass/Vol] 10.3 g/dL Low 12.0-16.0 [facility] MCH (RBC) [Entitic mass] 32.9 pg Normal 26.0-35.0 [facility] MCHC (RBC) [Mass/Vol] 34.4 g/dL Normal 27.0-37.[address] [facility] MCV (RBC) [Entitic vol] 95.6 fL Normal 80.0-100.0 [facility] Platelet mean volume (Bld) [Entitic vol] 6.3 fL Low 7.4-11.0 [facility] Platelets (Bld) [#/Vol] 466 10*3/uL High 130-400 [facility] RBC (Bld) [#/Vol] 3.12 10*6/uL Low 4.0-5.4 [facility] WBC (Bld) [#/Vol] 5.3 10*3/uL Normal 3.6-11.0 [facility] Laboratory - Chemistry and C hemistry - challengeon 01-30-2024 Anion gap [Moles/Vol] 3 mmol/L Low [facility] Calcium [Mass/Vol] 8.6 mg/dL [facility] Chloride [Moles/Vol] 101 mmol/L [facility] CO2 [Moles/Vol] 31 mmol/L High [facility] Creatinine [Mass/Vol] 1.00 mg/dL [facility] CRP [Mass/Vol] 25.8 mg/L High 0 - 10 MG/L [facility] GFR/1.73 sq M.predicted among blacks MDRD (S/P/Bld) [Vol rate/Area] 68 mL/min/{1.73_m2} ml/min/1.73sq .m [facility] GFR/1.73 sq M.predicted among non-blacks MDRD (S/P/Bld) [Vol rate/Area] 57 mL/min/{1.73_m2} ml/min/1.73sq .m [facility] Glucose post fast [Mass/Vol] 93 mg/dL [facility] Potassium [Moles/Vol] 4.4 mmol/L [facility] Sodium [Moles/Vol] 135 mmol/L Low [facility] Urea nitrogen [Mass/Vol] 10 mg/dL [facility] Laboratory - Hematology and Cell countson 01-30-2024 Basophils/100 WBC (Bld) 1.2 % 0.0 - 2.0 % [facility] Differential cell count method Nom (Bld) AUTO DIFF % [facility] Eosinophils (Bld) [#/Vol] 0.2 10*3/uL 0.0 - 0.7 10*3/uL [facility] Eosinophils/100 WBC (Bld) 3.0 % 0.0 - 11.0 % [facility] Erythrocyte distribution width (RBC) [Ratio] 15.0 % High 11.5 - 14.5 % [facility] Hematocrit (Bld) [Volume fraction] 29.9 % Low 36.0 - 48.0 % [facility] Hemoglobin (Bld) [Mass/Vol] 10.3 g/dL Low [facility] Lymphocytes (Bld) [#/Vol] 1.4 10*3/uL 1.2 - 3.4 10*3/uL [facility] Lymphocytes/100 WBC (Bld) 26.1 % 20.0 - 55.0 % [facility] MCH (RBC) [Entitic mass] 32.9 pg 26.0 - 35.0 PG [facility] MCHC (RBC) [Mass/Vol] 34.4 g/dL [facility] MCV (RBC) [Entitic vol] 95.6 fL [facility] Monocytes (Bld) [#/Vol] 0.8 10*3/uL High 0.0 - 0.7 10*3/uL [facility] Monocytes/100 WBC (Bld) 15.2 % High 0.0 - 10.0 % [facility] Neutrophils (Bld) [#/Vol] 2.9 10*3/uL 1.4 - 6.5 10*3/uL [facility] Neutrophils/100 WBC (Bld) 54.5 % 37.0 - 75.0 % [facility] Platelet mean volume (Bld) [Entitic vol] 6.3 fL Low [facility] Platelets (Bld) [#/Vol] 466 10*3/uL High 130 - 400 10*3/uL [facility] RBC (Bld) [#/Vol] 3.12 10*6/uL Low 4.0 - 5.4 10*6/uL [facility] WBC (Bld) [#/Vol] 5.3 10*3/uL 3.6 - 11.0 10*3/uL [facility] No Panel Informationon 01-29 GFR COMMENT Average GFR for 70+ years old = 75. [facility] Interpretation and review of laboratory results Abnormal [facility] ABSOLUTE BASOPHIL COUNT 0.1 10*3/uL 0.0 - 0.2 10*3/uL [facility] Interpretation and review of laboratory results Abnormal [facility] BMP FASTINGon 01-29-2024 Anion gap [Moles/Vol] 3 mmol/L Low 8-[address] [facility] Calcium [Mass/Vol] 8.3 mg/dL Low 8.4-10.2 [facility] Chloride [Moles/Vol] 101 mmol/L Normal 98-107 [facility] Comment on above: Result Comment: Shonda matthews note: Triglyceride levels of 600mg/dL or higher may positively bias chloride results by approximately 2.1 mmol CO2 [Moles/Vol] 30 mmol/L Normal 22-30 [facility] Creatinine [Mass/Vol] 0.80 mg/dL Normal 0.7-1.[address] [facility] EST. GFR, 89 ml/min/1.73sq.m [facility] EST. GFR,Non 73 ml/min/1.73sq.m [facility] GFR Information Average GFR for 70+ years old = 75. Normal [facility] Comment on above: Result Comment: [employer] aviva Kidney disease, GFR = <60. Kidney failure, GFR = <15. The GFR estimate is not adjusted for extreme body surface area or acute process, nor has it been validated for women or ethnic groups other than and . Glucose [Mass/Vol] 94 mg/dL Normal 70-100 [facility] Comment on above: Result Comment: NORMAL <100 mg/dL PREDIABETES 101-126 mg/dL DIABETES 126 mg/dL or higher Potassium [Moles/Vol] 4.2 mmol/L Normal 3.5-5.[address] [facility] Sodium [Moles/Vol] 134 mmol/L Low 137-145 [facility] Urea nitrogen [Mass/Vol] 9 mg/dL Normal 7-20 [facility] C REACTIVE PROTEINon 024 CRP [Mass/Vol] 28.9 mg/L High 0-10 [facility] CBCon 01-29-2024 ABSOLUTE BAS 0.1 10*3/uL Normal 0.0-0.2 [facility] ABSOLUTE EOS 0.2 10*3/uL Normal 0.0-0.7 [facility] ABSOLUTE NEUTROPHIL COUNT 2.6 10*3/uL Normal 1.4-6.5 [facility] Basophils/100 WBC (Bld) 1.1 % Normal 0.0-2.0 [facility] DTYPE AUTO DIFF Normal [facility] Eosinophils/100 WBC (Bld) 4.1 % Normal 0.0-11.0 [facility] Lymphocytes (Bld) [#/Vol] 1.3 10*3/uL Normal 1.2-3.4 [facility] Lymphocytes/100 WBC (Bld) 26.6 % Normal 20.0-55.0 [facility] Monocytes (Bld) [#/Vol] 0.7 10*3/uL Normal 0.0-0.7 [facility] Monocytes/100 WBC (Bld) 13.9 % High 0.0-10.0 [facility] Neutrophils/100 WBC (Bld) 54.3 % Normal 37.0-75.0 [facility] Erythrocyte distribution width (RBC) [Ratio] 14.7 % High 11.5-14.5 [facility] Hematocrit (Bld) [Volume fraction] 29.3 % Low 36.0-48.0 [facility] Hemoglobin (Bld) [Mass/Vol] 10.0 g/dL Low 12.0-16.0 [facility] MCH (RBC) [Entitic mass] 32.7 pg Normal 26.0-35.0 [facility] MCHC (RBC) [Mass/Vol] 34.3 g/dL Normal 27.0-37.[address] [facility] MCV (RBC) [Entitic vol] 95.2 fL Normal 80.0-100.0 [facility] Platelet mean volume (Bld) [Entitic vol] 6.4 fL Low 7.4-11.0 [facility] Platelets (Bld) [#/Vol] 438 10*3/uL High 130-400 [facility] RBC (Bld) [#/Vol] 3.07 10*6/uL Low 4.0-5.4 [facility] WBC (Bld) [#/Vol] 4.7 10*3/uL Normal 3.6-11.0 [facility] Laboratory - Chemistry and C hemistry - challengeon 01-29-2024 Anion gap [Moles/Vol] 3 mmol/L Low [facility] Calcium [Mass/Vol] 8.3 mg/dL Low [facility] Chloride [Moles/Vol] 101 mmol/L [facility] CO2 [Moles/Vol] 30 mmol/L [facility] Creatinine [Mass/Vol] 0.80 mg/dL [facility] CRP [Mass/Vol] 28.9 mg/L High 0 - 10 MG/L [facility] GFR/1.73 sq M.predicted among blacks MDRD (S/P/Bld) [Vol rate/Area] 89 mL/min/{1.73_m2} ml/min/1.73sq .m [facility] GFR/1.73 sq M.predicted among non-blacks MDRD (S/P/Bld) [Vol rate/Area] 73 mL/min/{1.73_m2} ml/min/1.73sq .m [facility] Glucose post fast [Mass/Vol] 94 mg/dL [facility] Potassium [Moles/Vol] 4.2 mmol/L [facility] Sodium [Moles/Vol] 134 mmol/L Low [facility] Urea nitrogen [Mass/Vol] 9 mg/dL [facility] Laboratory - Hematology and Cell countson 01-29-2024 Basophils/100 WBC (Bld) 1.1 % 0.0 - 2.0 % [facility] Differential cell count method Nom (Bld) AUTO DIFF % [facility] Eosinophils (Bld) [#/Vol] 0.2 10*3/uL 0.0 - 0.7 10*3/uL [facility] Eosinophils/100 WBC (Bld) 4.1 % 0.0 - 11.0 % [facility] Erythrocyte distribution width (RBC) [Ratio] 14.7 % High 11.5 - 14.5 % [facility] Hematocrit (Bld) [Volume fraction] 29.3 % Low 36.0 - 48.0 % [facility] Hemoglobin (Bld) [Mass/Vol] 10.0 g/dL Low [facility] Lymphocytes (Bld) [#/Vol] 1.3 10*3/uL 1.2 - 3.4 10*3/uL [facility] Lymphocytes/100 WBC (Bld) 26.6 % 20.0 - 55.0 % [facility] MCH (RBC) [Entitic mass] 32.7 pg 26.0 - 35.0 PG [facility] MCHC (RBC) [Mass/Vol] 34.3 g/dL [facility] MCV (RBC) [Entitic vol] 95.2 fL [facility] Monocytes (Bld) [#/Vol] 0.7 10*3/uL 0.0 - 0.7 10*3/uL [facility] Monocytes/100 WBC (Bld) 13.9 % High 0.0 - 10.0 % [facility] Neutrophils (Bld) [#/Vol] 2.6 10*3/uL 1.4 - 6.5 10*3/uL [facility] Neutrophils/100 WBC (Bld) 54.3 % 37.0 - 75.0 % [facility] Platelet mean volume (Bld) [Entitic vol] 6.4 fL Low [facility] Platelets (Bld) [#/Vol] 438 10*3/uL High 130 - 400 10*3/uL [facility] RBC (Bld) [#/Vol] 3.07 10*6/uL Low 4.0 - 5.4 10*6/uL [facility] WBC (Bld) [#/Vol] 4.7 10*3/uL 3.6 - 11.0 10*3/uL [facility] [facility] No Panel Informationon 01-28 GFR COMMENT Average GFR for 70+ years old = 75. [facility] Interpretation and review of laboratory results Abnormal [facility] ABSOLUTE BASOPHIL COUNT 0.1 10*3/uL 0.0 - 0.2 10*3/uL [facility] Interpretation and review of laboratory results Abnormal [facility] BMP FASTINGon 01-28-2024 Anion gap [Moles/Vol] 3 mmol/L Low 8-[address] [facility] Calcium [Mass/Vol] 8.8 mg/dL Normal 8.4-10.2 [facility] Chloride [Moles/Vol] 100 mmol/L Normal 98-107 [facility] Comment on above: Result Comment: Shonda matthews note: Triglyceride levels of 600mg/dL or higher may positively bias chloride results by approximately 2.1 mmol CO2 [Moles/Vol] 33 mmol/L High 22-30 [facility] Creatinine [Mass/Vol] 0.80 mg/dL Normal 0.7-1.[address] [facility] EST. GFR, 89 ml/min/1.73sq.m Normal [facility] EST. GFR,Non 73 ml/min/1.73sq.m Normal [facility] GFR Information Average GFR for 70+ years old = 75. Normal [facility] Comment on above: Result Comment: [employer] aviva Kidney disease, GFR = <60. Kidney failure, GFR = <15. The GFR estimate is not adjusted for extreme body surface area or acute process, nor has it been validated for women or ethnic groups other than and . Glucose [Mass/Vol] 86 mg/dL Normal 70-100 [facility] Comment on above: Result Comment: NORMAL <100 mg/dL PREDIABETES 101-126 mg/dL DIABETES 126 mg/dL or higher Potassium [Moles/Vol] 4.4 mmol/L Normal 3.5-5.[address] [facility] Sodium [Moles/Vol] 136 mmol/L Low 137-145 [facility] Urea nitrogen [Mass/Vol] 11 mg/dL Normal 7-20 [facility] C REACTIVE PROTEINon 024 CRP [Mass/Vol] 30.5 mg/L High 0-10 [facility] CBCon 01-28-2024 ABSOLUTE BAS 0.1 10*3/uL Normal 0.0-0.2 [facility] ABSOLUTE EOS 0.2 10*3/uL Normal 0.0-0.7 [facility] ABSOLUTE NEUTROPHIL COUNT 3.0 10*3/uL Normal 1.4-6.5 [facility] Basophils/100 WBC (Bld) 1.1 % Normal 0.0-2.0 [facility] DTYPE AUTO DIFF Normal [facility] Eosinophils/100 WBC (Bld) 3.2 % Normal 0.0-11.0 [facility] Lymphocytes (Bld) [#/Vol] 1.3 10*3/uL Normal 1.2-3.4 [facility] Lymphocytes/100 WBC (Bld) 25.7 % Normal 20.0-55.0 [facility] Monocytes (Bld) [#/Vol] 0.6 10*3/uL Normal 0.0-0.7 [facility] Monocytes/100 WBC (Bld) 12.0 % High 0.0-10.0 [facility] Neutrophils/100 WBC (Bld) 58.0 % Normal 37.0-75.0 [facility] Erythrocyte distribution width (RBC) [Ratio] 14.6 % High 11.5-14.5 [facility] Hematocrit (Bld) [Volume fraction] 31.3 % Low 36.0-48.0 [facility] Hemoglobin (Bld) [Mass/Vol] 10.6 g/dL Low 12.0-16.0 [facility] MCH (RBC) [Entitic mass] 32.3 pg Normal 26.0-35.0 [facility] MCHC (RBC) [Mass/Vol] 34.0 g/dL Normal 27.0-37.[address] [facility] MCV (RBC) [Entitic vol] 95.0 fL Normal 80.0-100.0 [facility] Platelet mean volume (Bld) [Entitic vol] 6.5 fL Low 7.4-11.0 [facility] Platelets (Bld) [#/Vol] 470 10*3/uL High 130-400 [facility] RBC (Bld) [#/Vol] 3.30 10*6/uL Low 4.0-5.4 [facility] WBC (Bld) [#/Vol] 5.1 10*3/uL Normal 3.6-11.0 [facility] Laboratory - Chemistry and C hemistry - challengeon 01-28-2024 Anion gap [Moles/Vol] 3 mmol/L Low [facility] Calcium [Mass/Vol] 8.8 mg/dL [facility] Chloride [Moles/Vol] 100 mmol/L [facility] CO2 [Moles/Vol] 33 mmol/L High [facility] Creatinine [Mass/Vol] 0.80 mg/dL [facility] CRP [Mass/Vol] 30.5 mg/L High 0 - 10 MG/L [facility] GFR/1.73 sq M.predicted among blacks MDRD (S/P/Bld) [Vol rate/Area] 89 mL/min/{1.73_m2} ml/min/1.73sq .m [facility] GFR/1.73 sq M.predicted among non-blacks MDRD (S/P/Bld) [Vol rate/Area] 73 mL/min/{1.73_m2} ml/min/1.73sq .m [facility] Glucose post fast [Mass/Vol] 86 mg/dL [facility] Potassium [Moles/Vol] 4.4 mmol/L [facility] Sodium [Moles/Vol] 136 mmol/L Low [facility] Urea nitrogen [Mass/Vol] 11 mg/dL [facility] Laboratory - Hematology and Cell countson 01-28-2024 Basophils/100 WBC (Bld) 1.1 % 0.0 - 2.0 % [facility] Differential cell count method Nom (Bld) AUTO DIFF % [facility] Eosinophils (Bld) [#/Vol] 0.2 10*3/uL 0.0 - 0.7 10*3/uL [facility] Eosinophils/100 WBC (Bld) 3.2 % 0.0 - 11.0 % [facility] Erythrocyte distribution width (RBC) [Ratio] 14.6 % High 11.5 - 14.5 % [facility] Hematocrit (Bld) [Volume fraction] 31.3 % Low 36.0 - 48.0 % [facility] Hemoglobin (Bld) [Mass/Vol] 10.6 g/dL Low [facility] Lymphocytes (Bld) [#/Vol] 1.3 10*3/uL 1.2 - 3.4 10*3/uL [facility] Lymphocytes/100 WBC (Bld) 25.7 % 20.0 - 55.0 % [facility] MCH (RBC) [Entitic mass] 32.3 pg 26.0 - 35.0 PG [facility] MCHC (RBC) [Mass/Vol] 34.0 g/dL [facility] MCV (RBC) [Entitic vol] 95.0 fL [facility] Monocytes (Bld) [#/Vol] 0.6 10*3/uL 0.0 - 0.7 10*3/uL [facility] Monocytes/100 WBC (Bld) 12.0 % High 0.0 - 10.0 % [facility] Neutrophils (Bld) [#/Vol] 3.0 10*3/uL 1.4 - 6.5 10*3/uL [facility] Neutrophils/100 WBC (Bld) 58.0 % 37.0 - 75.0 % [facility] Platelet mean volume (Bld) [Entitic vol] 6.5 fL Low [facility] Platelets (Bld) [#/Vol] 470 10*3/uL High 130 - 400 10*3/uL [facility] RBC (Bld) [#/Vol] 3.30 10*6/uL Low 4.0 - 5.4 10*6/uL [facility] WBC (Bld) [#/Vol] 5.1 10*3/uL 3.6 - 11.0 10*3/uL [facility] No Panel Informationon 01-27 GFR COMMENT Average GFR for 70+ years old = 75. [facility] Interpretation and review of laboratory results Abnormal [facility] ABSOLUTE BASOPHIL COUNT 0.1 10*3/uL 0.0 - 0.2 10*3/uL [facility] Interpretation and review of laboratory results Abnormal [facility] BMP FASTINGon 01-27-2024 Anion gap [Moles/Vol] 3 mmol/L Low 8-[address] [facility] Calcium [Mass/Vol] 8.6 mg/dL Normal 8.4-10.2 [facility] Chloride [Moles/Vol] 102 mmol/L Normal 98-107 [facility] Comment on above: Result Comment: Shonda matthews note: Triglyceride levels of 600mg/dL or higher may positively bias chloride results by approximately 2.1 mmol CO2 [Moles/Vol] 30 mmol/L Normal 22-30 [facility] Creatinine [Mass/Vol] 0.70 mg/dL Normal 0.7-1.[address] [facility] EST. GFR, 103 ml/min/1.73sq.m [facility] EST. GFR,Non 85 ml/min/1.73sq.m [facility] GFR Information Average GFR for 70+ years old = 75. Normal [facility] Comment on above: Result Comment: [employer] aviva Kidney disease, GFR = <60. Kidney failure, GFR = <15. The GFR estimate is not adjusted for extreme body surface area or acute process, nor has it been validated for women or ethnic groups other than and . Glucose [Mass/Vol] 98 mg/dL Normal 70-100 [facility] Comment on above: Result Comment: NORMAL <100 mg/dL PREDIABETES 101-126 mg/dL DIABETES 126 mg/dL or higher Potassium [Moles/Vol] 4.0 mmol/L Normal 3.5-5.[address] [facility] Sodium [Moles/Vol] 135 mmol/L Low 137-145 [facility] Urea nitrogen [Mass/Vol] 11 mg/dL Normal 7-20 [facility] C REACTIVE PROTEINon 024 CRP [Mass/Vol] 28.4 mg/L High 0-10 [facility] CBCon 01-27-2024 ABSOLUTE BAS 0.0 10*3/uL Normal 0.0-0.2 [facility] ABSOLUTE EOS 0.2 10*3/uL Normal 0.0-0.7 [facility] ABSOLUTE NEUTROPHIL COUNT 3.3 10*3/uL Normal 1.4-6.5 [facility] Basophils/100 WBC (Bld) 0.9 % Normal 0.0-2.0 [facility] DTYPE AUTO DIFF Normal [facility] Eosinophils/100 WBC (Bld) 3.3 % Normal 0.0-11.0 [facility] Lymphocytes (Bld) [#/Vol] 1.3 10*3/uL Normal 1.2-3.4 [facility] Lymphocytes/100 WBC (Bld) 23.9 % Normal 20.0-55.0 [facility] Monocytes (Bld) [#/Vol] 0.6 10*3/uL Normal 0.0-0.7 [facility] Monocytes/100 WBC (Bld) 11.0 % High 0.0-10.0 [facility] Neutrophils/100 WBC (Bld) 60.9 % Normal 37.0-75.0 [facility] Erythrocyte distribution width (RBC) [Ratio] 14.9 % High 11.5-14.5 [facility] Hematocrit (Bld) [Volume fraction] 30.7 % Low 36.0-48.0 [facility] Hemoglobin (Bld) [Mass/Vol] 10.3 g/dL Low 12.0-16.0 [facility] MCH (RBC) [Entitic mass] 32.2 pg Normal 26.0-35.0 [facility] MCHC (RBC) [Mass/Vol] 33.4 g/dL Normal 27.0-37.[address] [facility] MCV (RBC) [Entitic vol] 96.3 fL Normal 80.0-100.0 [facility] Platelet mean volume (Bld) [Entitic vol] 6.6 fL Low 7.4-11.0 [facility] Platelets (Bld) [#/Vol] 438 10*3/uL High 130-400 [facility] RBC (Bld) [#/Vol] 3.19 10*6/uL Low 4.0-5.4 [facility] WBC (Bld) [#/Vol] 5.4 10*3/uL Normal 3.6-11.0 [facility] Laboratory - Chemistry and C hemistry - challengeon 01-27-2024 Anion gap [Moles/Vol] 3 mmol/L Low [facility] Calcium [Mass/Vol] 8.6 mg/dL [facility] Chloride [Moles/Vol] 102 mmol/L [facility] CO2 [Moles/Vol] 30 mmol/L [facility] Creatinine [Mass/Vol] 0.70 mg/dL [facility] CRP [Mass/Vol] 28.4 mg/L High 0 - 10 MG/L [facility] GFR/1.73 sq M.predicted among blacks MDRD (S/P/Bld) [Vol rate/Area] 103 mL/min/{1.73_m2} ml/min/1.73sq .m [facility] GFR/1.73 sq M.predicted among non-blacks MDRD (S/P/Bld) [Vol rate/Area] 85 mL/min/{1.73_m2} ml/min/1.73sq .m [facility] Glucose post fast [Mass/Vol] 98 mg/dL [facility] Potassium [Moles/Vol] 4.0 mmol/L [facility] Sodium [Moles/Vol] 135 mmol/L Low [facility] Urea nitrogen [Mass/Vol] 11 mg/dL [facility] Laboratory - Hematology and Cell countson 01-27-2024 Basophils/100 WBC (Bld) 0.9 % 0.0 - 2.0 % [facility] Differential cell count method Nom (Bld) AUTO DIFF % [facility] Eosinophils (Bld) [#/Vol] 0.2 10*3/uL 0.0 - 0.7 10*3/uL [facility] Eosinophils/100 WBC (Bld) 3.3 % 0.0 - 11.0 % [facility] Erythrocyte distribution width (RBC) [Ratio] 14.9 % High 11.5 - 14.5 % [facility] Hematocrit (Bld) [Volume fraction] 30.7 % Low 36.0 - 48.0 % [facility] Hemoglobin (Bld) [Mass/Vol] 10.3 g/dL Low [facility] Lymphocytes (Bld) [#/Vol] 1.3 10*3/uL 1.2 - 3.4 10*3/uL [facility] Lymphocytes/100 WBC (Bld) 23.9 % 20.0 - 55.0 % [facility] MCH (RBC) [Entitic mass] 32.2 pg 26.0 - 35.0 PG [facility] MCHC (RBC) [Mass/Vol] 33.4 g/dL [facility] MCV (RBC) [Entitic vol] 96.3 fL [facility] Monocytes (Bld) [#/Vol] 0.6 10*3/uL 0.0 - 0.7 10*3/uL [facility] Monocytes/100 WBC (Bld) 11.0 % High 0.0 - 10.0 % [facility] Neutrophils (Bld) [#/Vol] 3.3 10*3/uL 1.4 - 6.5 10*3/uL [facility] Neutrophils/100 WBC (Bld) 60.9 % 37.0 - 75.0 % [facility] Platelet mean volume (Bld) [Entitic vol] 6.6 fL Low [facility] Platelets (Bld) [#/Vol] 438 10*3/uL High 130 - 400 10*3/uL [facility] RBC (Bld) [#/Vol] 3.19 10*6/uL Low 4.0 - 5.4 10*6/uL [facility] WBC (Bld) [#/Vol] 5.4 10*3/uL 3.6 - 11.0 10*3/uL [facility] No Panel Informationon 01-26 GFR COMMENT Average GFR for 70+ years old = 75. [facility] Interpretation and review of laboratory results Abnormal [facility] ABSOLUTE BASOPHIL COUNT 0.0 10*3/uL 0.0 - 0.2 10*3/uL [facility] Interpretation and review of laboratory results Abnormal [facility] BMP FASTINGon 01-26-2024 Anion gap [Moles/Vol] 1 mmol/L Low 8-[address] [facility] Calcium [Mass/Vol] 8.2 mg/dL Low 8.4-10.2 [facility] Chloride [Moles/Vol] 102 mmol/L Normal 98-107 [facility] Comment on above: Result Comment: Shonda matthews note: Triglyceride levels of 600mg/dL or higher may positively bias chloride results by approximately 2.1 mmol CO2 [Moles/Vol] 31 mmol/L High 22-30 [facility] Creatinine [Mass/Vol] 0.70 mg/dL Normal 0.7-1.[address] [facility] EST. GFR, 103 ml/min/1.73sq.m Normal [facility] EST. GFR,Non 85 ml/min/1.73sq.m Normal [facility] GFR Information Average GFR for 70+ years old = 75. Normal [facility] Comment on above: Result Comment: [employer]ging [employer] aviva Kidney disease, GFR = <60. Kidney failure, GFR = <15. The GFR estimate is not adjusted for extreme body surface area or acute process, nor has it been validated for women or ethnic groups other than and . Glucose [Mass/Vol] 109 mg/dL High 70-100 [facility] Comment on above: Result Comment: NORMAL <100 mg/dL PREDIABETES 101-126 mg/dL DIABETES 126 mg/dL or higher Potassium [Moles/Vol] 3.9 mmol/L Normal 3.5-5.[address] [facility] Sodium [Moles/Vol] 134 mmol/L Low 137-145 [facility] Urea nitrogen [Mass/Vol] 12 mg/dL Normal 7-20 [facility] C REACTIVE PROTEINon 024 CRP [Mass/Vol] 28.4 mg/L High 0-10 [facility] CBCon 01-26-2024 ABSOLUTE BAS 0.0 10*3/uL Normal 0.0-0.2 [facility] ABSOLUTE EOS 0.2 10*3/uL Normal 0.0-0.7 [facility] ABSOLUTE NEUTROPHIL COUNT 3.7 10*3/uL Normal 1.4-6.5 [facility] Basophils/100 WBC (Bld) 0.9 % Normal 0.0-2.0 [facility] DTYPE AUTO DIFF Normal [facility] Eosinophils/100 WBC (Bld) 2.8 % Normal 0.0-11.0 [facility] Lymphocytes (Bld) [#/Vol] 1.2 10*3/uL Normal 1.2-3.4 [facility] Lymphocytes/100 WBC (Bld) 21.0 % Normal 20.0-55.0 [facility] Monocytes (Bld) [#/Vol] 0.7 10*3/uL Normal 0.0-0.7 [facility] Monocytes/100 WBC (Bld) 11.6 % High 0.0-10.0 [facility] Neutrophils/100 WBC (Bld) 63.7 % Normal 37.0-75.0 [facility] Erythrocyte distribution width (RBC) [Ratio] 14.6 % High 11.5-14.5 [facility] Hematocrit (Bld) [Volume fraction] 29.0 % Low 36.0-48.0 [facility] Hemoglobin (Bld) [Mass/Vol] 9.8 g/dL Low 12.0-16.0 [facility] MCH (RBC) [Entitic mass] 32.0 pg Normal 26.0-35.0 [facility] MCHC (RBC) [Mass/Vol] 33.6 g/dL Normal 27.0-37.[address] [facility] MCV (RBC) [Entitic vol] 95.3 fL Normal 80.0-100.0 [facility] Platelet mean volume (Bld) [Entitic vol] 6.7 fL Low 7.4-11.0 [facility] Platelets (Bld) [#/Vol] 440 10*3/uL High 130-400 [facility] RBC (Bld) [#/Vol] 3.05 10*6/uL Low 4.0-5.4 [facility] WBC (Bld) [#/Vol] 5.9 10*3/uL Normal 3.6-11.0 [facility] Laboratory - Chemistry and C hemistry - challengeon 01-26-2024 Anion gap [Moles/Vol] 1 mmol/L Low [facility] Calcium [Mass/Vol] 8.2 mg/dL Low [facility] Chloride [Moles/Vol] 102 mmol/L [facility] CO2 [Moles/Vol] 31 mmol/L High [facility] Creatinine [Mass/Vol] 0.70 mg/dL [facility] CRP [Mass/Vol] 28.4 mg/L High 0 - 10 MG/L [facility] GFR/1.73 sq M.predicted among blacks MDRD (S/P/Bld) [Vol rate/Area] 103 mL/min/{1.73_m2} ml/min/1.73sq .m [facility] GFR/1.73 sq M.predicted among non-blacks MDRD (S/P/Bld) [Vol rate/Area] 85 mL/min/{1.73_m2} ml/min/1.73sq .m [facility] Glucose post fast [Mass/Vol] 109 mg/dL High [facility] Potassium [Moles/Vol] 3.9 mmol/L [facility] Sodium [Moles/Vol] 134 mmol/L Low [facility] Urea nitrogen [Mass/Vol] 12 mg/dL [facility] Laboratory - Hematology and Cell countson 01-26-2024 Basophils/100 WBC (Bld) 0.9 % 0.0 - 2.0 % [facility] Differential cell count method Nom (Bld) AUTO DIFF % [facility] Eosinophils (Bld) [#/Vol] 0.2 10*3/uL 0.0 - 0.7 10*3/uL [facility] Eosinophils/100 WBC (Bld) 2.8 % 0.0 - 11.0 % [facility] Erythrocyte distribution width (RBC) [Ratio] 14.6 % High 11.5 - 14.5 % [facility] Hematocrit (Bld) [Volume fraction] 29.0 % Low 36.0 - 48.0 % [facility] Hemoglobin (Bld) [Mass/Vol] 9.8 g/dL Low [facility] Lymphocytes (Bld) [#/Vol] 1.2 10*3/uL 1.2 - 3.4 10*3/uL [facility] Lymphocytes/100 WBC (Bld) 21.0 % 20.0 - 55.0 % [facility] MCH (RBC) [Entitic mass] 32.0 pg 26.0 - 35.0 PG [facility] MCHC (RBC) [Mass/Vol] 33.6 g/dL [facility] MCV (RBC) [Entitic vol] 95.3 fL [facility] Monocytes (Bld) [#/Vol] 0.7 10*3/uL 0.0 - 0.7 10*3/uL [facility] Monocytes/100 WBC (Bld) 11.6 % High 0.0 - 10.0 % [facility] Neutrophils (Bld) [#/Vol] 3.7 10*3/uL 1.4 - 6.5 10*3/uL [facility] Neutrophils/100 WBC (Bld) 63.7 % 37.0 - 75.0 % [facility] Platelet mean volume (Bld) [Entitic vol] 6.7 fL Low [facility] Platelets (Bld) [#/Vol] 440 10*3/uL High 130 - 400 10*3/uL [facility] RBC (Bld) [#/Vol] 3.05 10*6/uL Low 4.0 - 5.4 10*6/uL [facility] WBC (Bld) [#/Vol] 5.9 10*3/uL 3.6 - 11.0 10*3/uL [facility] No Panel Informationon 01-25 GFR COMMENT Average GFR for 70+ years old = 75. [facility] Interpretation and review of laboratory results Abnormal [facility] ABSOLUTE BASOPHIL COUNT 0.0 10*3/uL 0.0 - 0.2 10*3/uL [facility] Interpretation and review of laboratory results Abnormal [facility] BMP FASTINGon 01-25-2024 Anion gap [Moles/Vol] 3 mmol/L Low 8-[address] [facility] Calcium [Mass/Vol] 8.3 mg/dL Low 8.4-10.2 [facility] Chloride [Moles/Vol] 101 mmol/L Normal 98-107 [facility] Comment on above: Result Comment: Shonda matthews note: Triglyceride levels of 600mg/dL or higher may positively bias chloride results by approximately 2.1 mmol CO2 [Moles/Vol] 32 mmol/L High 22-30 [facility] Creatinine [Mass/Vol] 0.70 mg/dL Normal 0.7-1.[address] [facility] EST. GFR, 103 ml/min/1.73sq.m Normal [facility] EST. GFR,Non 85 ml/min/1.73sq.m Normal [facility] GFR Information Average GFR for 70+ years old = 75. Normal [facility] Comment on above: Result Comment: [employer]ging [employer] aviva Kidney disease, GFR = <60. Kidney failure, GFR = <15. The GFR estimate is not adjusted for extreme body surface area or acute process, nor has it been validated for women or ethnic groups other than and . Glucose [Mass/Vol] 92 mg/dL Normal 70-100 [facility] Comment on above: Result Comment: NORMAL <100 mg/dL PREDIABETES 101-126 mg/dL DIABETES 126 mg/dL or higher Potassium [Moles/Vol] 3.8 mmol/L Normal 3.5-5.[address] [facility] Sodium [Moles/Vol] 136 mmol/L Low 137-145 [facility] Urea nitrogen [Mass/Vol] 6 mg/dL Low 7-20 [facility] C REACTIVE PROTEINon 024 CRP [Mass/Vol] 33.6 mg/L High 0-10 [facility] CBCon 01-25-2024 ABSOLUTE BAS 0.0 10*3/uL Normal 0.0-0.2 [facility] ABSOLUTE EOS 0.2 10*3/uL Normal 0.0-0.7 [facility] ABSOLUTE NEUTROPHIL COUNT 3.7 10*3/uL Normal 1.4-6.5 [facility] Basophils/100 WBC (Bld) 0.7 % Normal 0.0-2.0 [facility] DTYPE AUTO DIFF Normal [facility] Eosinophils/100 WBC (Bld) 2.6 % Normal 0.0-11.0 [facility] Lymphocytes (Bld) [#/Vol] 1.2 10*3/uL Normal 1.2-3.4 [facility] Lymphocytes/100 WBC (Bld) 21.6 % Normal 20.0-55.0 [facility] Monocytes (Bld) [#/Vol] 0.6 10*3/uL Normal 0.0-0.7 [facility] Monocytes/100 WBC (Bld) 11.3 % High 0.0-10.0 [facility] Neutrophils/100 WBC (Bld) 63.8 % Normal 37.0-75.0 [facility] Erythrocyte distribution width (RBC) [Ratio] 14.4 % Normal 11.5-14.5 [facility] Hematocrit (Bld) [Volume fraction] 29.4 % Low 36.0-48.0 [facility] Hemoglobin (Bld) [Mass/Vol] 10.1 g/dL Low 12.0-16.0 [facility] MCH (RBC) [Entitic mass] 32.5 pg Normal 26.0-35.0 [facility] MCHC (RBC) [Mass/Vol] 34.3 g/dL Normal 27.0-37.[address] [facility] MCV (RBC) [Entitic vol] 94.8 fL Normal 80.0-100.0 [facility] Platelet mean volume (Bld) [Entitic vol] 6.7 fL Low 7.4-11.0 [facility] Platelets (Bld) [#/Vol] 440 10*3/uL High 130-400 [facility] RBC (Bld) [#/Vol] 3.10 10*6/uL Low 4.0-5.4 [facility] WBC (Bld) [#/Vol] 5.7 10*3/uL Normal 3.6-11.0 [facility] Laboratory - Chemistry and C hemistry - challengeon 01-25-2024 Anion gap [Moles/Vol] 3 mmol/L Low [facility] Calcium [Mass/Vol] 8.3 mg/dL Low [facility] Chloride [Moles/Vol] 101 mmol/L [facility] CO2 [Moles/Vol] 32 mmol/L High [facility] Creatinine [Mass/Vol] 0.70 mg/dL [facility] CRP [Mass/Vol] 33.6 mg/L High 0 - 10 MG/L [facility] GFR/1.73 sq M.predicted among blacks MDRD (S/P/Bld) [Vol rate/Area] 103 mL/min/{1.73_m2} ml/min/1.73sq .m [facility] GFR/1.73 sq M.predicted among non-blacks MDRD (S/P/Bld) [Vol rate/Area] 85 mL/min/{1.73_m2} ml/min/1.73sq .m [facility] Glucose post fast [Mass/Vol] 92 mg/dL [facility] Potassium [Moles/Vol] 3.8 mmol/L [facility] Sodium [Moles/Vol] 136 mmol/L Low [facility] Urea nitrogen [Mass/Vol] 6 mg/dL Low [facility] Laboratory - Hematology and Cell countson 01-25-2024 Basophils/100 WBC (Bld) 0.7 % 0.0 - 2.0 % [facility] Differential cell count method Nom (Bld) AUTO DIFF % [facility] Eosinophils (Bld) [#/Vol] 0.2 10*3/uL 0.0 - 0.7 10*3/uL [facility] Eosinophils/100 WBC (Bld) 2.6 % 0.0 - 11.0 % [facility] Erythrocyte distribution width (RBC) [Ratio] 14.4 % 11.5 - 14.5 % [facility] Hematocrit (Bld) [Volume fraction] 29.4 % Low 36.0 - 48.0 % [facility] Hemoglobin (Bld) [Mass/Vol] 10.1 g/dL Low [facility] Lymphocytes (Bld) [#/Vol] 1.2 10*3/uL 1.2 - 3.4 10*3/uL [facility] Lymphocytes/100 WBC (Bld) 21.6 % 20.0 - 55.0 % [facility] MCH (RBC) [Entitic mass] 32.5 pg 26.0 - 35.0 PG [facility] MCHC (RBC) [Mass/Vol] 34.3 g/dL [facility] MCV (RBC) [Entitic vol] 94.8 fL [facility] Monocytes (Bld) [#/Vol] 0.6 10*3/uL 0.0 - 0.7 10*3/uL [facility] Monocytes/100 WBC (Bld) 11.3 % High 0.0 - 10.0 % [facility] Neutrophils (Bld) [#/Vol] 3.7 10*3/uL 1.4 - 6.5 10*3/uL [facility] Neutrophils/100 WBC (Bld) 63.8 % 37.0 - 75.0 % [facility] Platelet mean volume (Bld) [Entitic vol] 6.7 fL Low [facility] Platelets (Bld) [#/Vol] 440 10*3/uL High 130 - 400 10*3/uL [facility] RBC (Bld) [#/Vol] 3.10 10*6/uL Low 4.0 - 5.4 10*6/uL [facility] WBC (Bld) [#/Vol] 5.7 10*3/uL 3.6 - 11.0 10*3/uL [facility] No Panel Informationon 01-24 GFR COMMENT Average GFR for 70+ years old = 75. [facility] Interpretation and review of laboratory results Abnormal [facility] ABSOLUTE BASOPHIL COUNT 0.0 10*3/uL 0.0 - 0.2 10*3/uL [facility] Interpretation and review of laboratory results Abnormal [facility] BMP FASTINGon 01-24-2024 Anion gap [Moles/Vol] 2 mmol/L Low 8-[address] [facility] Calcium [Mass/Vol] 8.5 mg/dL Normal 8.4-10.2 [facility] Chloride [Moles/Vol] 102 mmol/L Normal 98-107 [facility] Comment on above: Result Comment: Shonda matthews note: Triglyceride levels of 600mg/dL or higher may positively bias chloride results by approximately 2.1 mmol CO2 [Moles/Vol] 31 mmol/L High 22-30 [facility] Creatinine [Mass/Vol] 0.70 mg/dL Normal 0.7-1.[address] [facility] EST. GFR, 103 ml/min/1.73sq.m Normal [facility] EST. GFR,Non 85 ml/min/1.73sq.m Normal [facility] GFR Information Average GFR for 70+ years old = 75. Normal [facility] Comment on above: Result Comment: [employer]ging [employer]man aviva Kidney disease, GFR = <60. Kidney failure, GFR = <15. The GFR estimate is not adjusted for extreme body surface area or acute process, nor has it been validated for women or ethnic groups other than and . Glucose [Mass/Vol] 104 mg/dL High 70-100 [facility] Comment on above: Result Comment: NORMAL <100 mg/dL PREDIABETES 101-126 mg/dL DIABETES 126 mg/dL or higher Potassium [Moles/Vol] 3.5 mmol/L Normal 3.5-5.[address] [facility] Sodium [Moles/Vol] 135 mmol/L Low 137-145 [facility] Urea nitrogen [Mass/Vol] 8 mg/dL Normal 7-20 [facility] C DIFFICILE DNAon 01-24-2024 C. DIFF 027 Negative Normal NEGATIVE [facility] Comment on above: Result Comment: Hype rvirulent C. difficile strain 027/NAP1/BI TESTING PERFORMED BY PCR Performed By: #### G IPAN ####[place] [address] TOXIGENIC C. DIFF Negative Normal NEGATIVE [facility] Comment on above: Performed By: #### G IPAN ####Testing performed at [address] [address] C REACTIVE PROTEINon 024 CRP [Mass/Vol] 46.5 mg/L High 0-10 [facility] CBCon 01-24-2024 ABSOLUTE BAS 0.0 10*3/uL Normal 0.0-0.2 [facility] ABSOLUTE EOS 0.1 10*3/uL Normal 0.0-0.7 [facility] ABSOLUTE NEUTROPHIL COUNT 4.2 10*3/uL Normal 1.4-6.5 [facility] Basophils/100 WBC (Bld) 0.7 % Normal 0.0-2.0 [facility] DTYPE AUTO DIFF Normal [facility] Eosinophils/100 WBC (Bld) 2.2 % Normal 0.0-11.0 [facility] Lymphocytes (Bld) [#/Vol] 1.2 10*3/uL Normal 1.2-3.4 [facility] Lymphocytes/100 WBC (Bld) 19.3 % Low 20.0-55.0 [facility] Monocytes (Bld) [#/Vol] 0.7 10*3/uL Normal 0.0-0.7 [facility] Monocytes/100 WBC (Bld) 10.6 % High 0.0-10.0 [facility] Neutrophils/100 WBC (Bld) 67.2 % Normal 37.0-75.0 [facility] Erythrocyte distribution width (RBC) [Ratio] 14.5 % Normal 11.5-14.5 [facility] Hematocrit (Bld) [Volume fraction] 29.3 % Low 36.0-48.0 [facility] Hemoglobin (Bld) [Mass/Vol] 10.1 g/dL Low 12.0-16.0 [facility] MCH (RBC) [Entitic mass] 32.7 pg Normal 26.0-35.0 [facility] MCHC (RBC) [Mass/Vol] 34.4 g/dL Normal 27.0-37.[address] [facility] MCV (RBC) [Entitic vol] 95.1 fL Normal 80.0-100.0 [facility] Platelet mean volume (Bld) [Entitic vol] 6.8 fL Low 7.4-11.0 [facility] Platelets (Bld) [#/Vol] 424 10*3/uL High 130-400 [facility] RBC (Bld) [#/Vol] 3.08 10*6/uL Low 4.0-5.4 [facility] WBC (Bld) [#/Vol] 6.2 10*3/uL Normal 3.6-11.0 [facility] GI PANELon 01-24-2024 ADENOVIRUS F 40/41 Not detected Normal NOT DETECTED [facility] Comment on above: Result Comment: Mandi baugh: Nucleic acid may persist in vivo independently of organism viability. Additionally, some organisms may be carried asymptomatically. Detection of target organisms does not imply that the corresponding organisms are infectious or are the causative agent of clinical symptoms. Results must be correlated with clinical history, epidemiological data and other clinical information available. Testing performed at [place] [address] Performed By: #### G IPAN ####[place] [address] ASTROVIRUS Not detected Normal NOT DETECTED [facility] Comment on above: Performed By: #### G IPAN ####[place] [address] CAMPYLOBACTER Not detected Normal NOT DETECTED [facility] Comment on above: Performed By: #### G IPAN ####[place] [address] CRYPTOSPORIDIUM Not detected Normal NOT DETECTED [facility] Comment on above: Performed By: #### G IPAN ####[place] [address] CYCLOSPORA CAYETANENSIS Not detected Normal NOT DETECTED [facility] Comment on above: Performed By: #### G IPAN ####[place] [address] ENTAMOEBA HISTOLYTICA Not detected Normal NOT DETECTED [facility] Comment on above: Performed By: #### G IPAN ####[place] [address] ENTEROAGGREGATIVE E COLI Not detected Normal NOT DETECTED [facility] Comment on above: Performed By: #### G IPAN ####[place] [address] ENTEROTOXIGENIC E COLI Not detected Normal NOT DETECTED [facility] Comment on above: Performed By: #### G IPAN ####Testing performed at [address] [address] ENTROPATHOGENIC E COLI Not detected Normal NOT DETECTED [facility] Comment on above: Performed By: #### G IPAN ####Testing performed at [place] [id number] GIARDIA LAMBLIA Not detected Normal NOT DETECTED [facility] Comment on above: Performed By: #### G IPAN ####[place] [address] NOROVIRUS GI/GII Not detected Normal NOT DETECTED [facility] Comment on above: Performed By: #### G IPAN ####[place] [address] PLESIOMONAS SHIGELLOIDES Not detected Normal NOT DETECTED [facility] Comment on above: Performed By: #### G IPAN ####[place] [address] ROTAVIRUS A Not detected Normal NOT DETECTED [facility] Comment on above: Performed By: #### G IPAN ####[place] [address] SALMONELLA Not detected Normal NOT DETECTED [facility] Comment on above: Performed By: #### G IPAN ####[place] [address] SAPOVIRUS Not detected Normal NOT DETECTED [facility] Comment on above: Performed By: #### G IPAN ####Testing performed at [place] [id number] SHIGA-LIKE TOXIN-PRODUCING E COLI Not detected Normal NOT DETECTED [facility] Comment on above: Performed By: #### G IPAN ####Testing performed at [place] [id number] SHIGELLA/ENTEROINVASI VE E COLI Not detected Normal NOT DETECTED [facility] Comment on above: Performed By: #### G IPAN ####[place] [address] VIBRIO Not detected Normal NOT DETECTED [facility] Comment on above: Performed By: #### G IPAN ####[place] [address] VIBRIO CHOLERAE Not detected Normal NOT DETECTED [facility] Comment on above: Performed By: #### G IPAN ####[place] [address] YESINIA ENTEROCOLITICA Not detected Normal NOT DETECTED [facility] Comment on above: Performed By: #### G IPAN ####[place] [address] Laboratory - Chemistry and C hemistry - challengeon 01-24-2024 Anion gap [Moles/Vol] 2 mmol/L Low [facility] Calcium [Mass/Vol] 8.5 mg/dL [facility] Chloride [Moles/Vol] 102 mmol/L [facility] CO2 [Moles/Vol] 31 mmol/L [facility] Creatinine [Mass/Vol] 0.70 mg/dL [facility] CRP [Mass/Vol] 46.5 mg/L High 0 - 10 MG/L [facility] GFR/1.73 sq M.predicted among blacks MDRD (S/P/Bld) [Vol rate/Area] 103 mL/min/{1.73_m2} ml/min/1.73sq .m [facility] GFR/1.73 sq M.predicted among non-blacks MDRD (S/P/Bld) [Vol rate/Area] 85 mL/min/{1.73_m2} ml/min/1.73sq .m [facility] Glucose post fast [Mass/Vol] 104 mg/dL [facility] Potassium [Moles/Vol] 3.5 mmol/L [facility] Sodium [Moles/Vol] 135 mmol/L Low [facility] Urea nitrogen [Mass/Vol] 8 mg/dL [facility] Laboratory - Hematology and Cell countson 01-24-2024 Basophils/100 WBC (Bld) 0.7 % 0.0 - 2.0 % [facility] Differential cell count method Nom (Bld) AUTO DIFF % [facility] Eosinophils (Bld) [#/Vol] 0.1 10*3/uL 0.0 - 0.7 10*3/uL [facility] Eosinophils/100 WBC (Bld) 2.2 % 0.0 - 11.0 % [facility] Erythrocyte distribution width (RBC) [Ratio] 14.5 % 11.5 - 14.5 % [facility] Hematocrit (Bld) [Volume fraction] 29.3 % Low 36.0 - 48.0 % [facility] Hemoglobin (Bld) [Mass/Vol] 10.1 g/dL Low [facility] Lymphocytes (Bld) [#/Vol] 1.2 10*3/uL 1.2 - 3.4 10*3/uL [facility] Lymphocytes/100 WBC (Bld) 19.3 % Low 20.0 - 55.0 % [facility] MCH (RBC) [Entitic mass] 32.7 pg 26.0 - 35.0 PG [facility] MCHC (RBC) [Mass/Vol] 34.4 g/dL [facility] MCV (RBC) [Entitic vol] 95.1 fL [facility] Monocytes (Bld) [#/Vol] 0.7 10*3/uL 0.0 - 0.7 10*3/uL [facility] Monocytes/100 WBC (Bld) 10.6 % High 0.0 - 10.0 % [facility] Neutrophils (Bld) [#/Vol] 4.2 10*3/uL 1.4 - 6.5 10*3/uL [facility] Neutrophils/100 WBC (Bld) 67.2 % 37.0 - 75.0 % [facility] Platelet mean volume (Bld) [Entitic vol] 6.8 fL Low [facility] Platelets (Bld) [#/Vol] 424 10*3/uL High 130 - 400 10*3/uL [facility] RBC (Bld) [#/Vol] 3.08 10*6/uL Low 4.0 - 5.4 10*6/uL [facility] WBC (Bld) [#/Vol] 6.2 10*3/uL 3.6 - 11.0 10*3/uL [facility] Laboratory - Microbiology an d Antimicrobial susceptibilityon 01-24-2024 Adenovirus 40+41 DNA SMILEY+non-probe Ql (Stl) Not detected NOT DETECTED [facility] Astrovirus subtypes 1-8 RNA SMILEY+non-probe Ql (Stl) Not detected NOT DETECTED [facility] C. cayetanensis DNA SMILEY+probe Ql (Unsp spec) Not detected NOT DETECTED [facility] C. coli+jejuni+upsaliens is DNA SMILEY+non-probe Ql (Stl) Not detected NOT DETECTED [facility] Cryptosporidium sp DNA SMILEY+probe Ql (Unsp spec) Not detected NOT DETECTED [facility] E. coli enteroaggregative Kandis plasmid aggR+aatA genes SMILEY+non-probe Ql (Stl) Not detected NOT DETECTED [facility] E. histolytica DNA SMILEY+probe Ql (Unsp spec) Not detected NOT DETECTED [facility] G. lamblia DNA SMILEY+non-probe Ql (Stl) Not detected NOT DETECTED [facility] P. shigelloides DNA SMILEY+non-probe Ql (Stl) Not detected NOT DETECTED [facility] Rotavirus A RNA SMILEY+non-probe Ql (Stl) Not detected NOT DETECTED [facility] S. enterica+bongori DNA SMILEY+non-probe Ql (Stl) Not detected NOT DETECTED [facility] V. cholerae DNA SMILEY+non-probe Ql (Stl) Not detected NOT DETECTED [facility] V. cholerae+parahaemolyt icus+vulnificus DNA SMILEY+non-probe Ql (Stl) Not detected NOT DETECTED [facility] Y. enterocolitica DNA SMILEY+non-probe Ql (Stl) Not detected NOT DETECTED [facility] No Panel Informationon 01-23 E COLI (EIEC) Not detected NOT DETECTED [facility] E COLI (EPEC) Not detected NOT DETECTED [facility] E COLI (ETEC) Not detected NOT DETECTED [facility] NOROVIRUS RNA Not detected NOT DETECTED [facility] SAPOVIRUS Not detected NOT DETECTED [facility] SHIGA TOXIN E. COLI Not detected NOT DETECTED A [facility] C. Diff 027 Negative NEGATIVE [facility] C.DIFFICILE TOXIN,PCR Negative NEGATIVE [facility] GFR COMMENT Average GFR for 70+ years old = 75. [facility] Interpretation and review of laboratory results Abnormal [facility] ABSOLUTE BASOPHIL COUNT 0.0 10*3/uL 0.0 - 0.2 10*3/uL [facility] Interpretation and review of laboratory results Abnormal [facility] BMP FASTINGon 01-23-2024 Anion gap [Moles/Vol] 1 mmol/L Low 8-[address] [facility] Calcium [Mass/Vol] 8.5 mg/dL Normal 8.4-10.2 [facility] Chloride [Moles/Vol] 101 mmol/L Normal 98-107 [facility] Comment on above: Result Comment: Shonda matthews note: Triglyceride levels of 600mg/dL or higher may positively bias chloride results by approximately 2.1 mmol CO2 [Moles/Vol] 33 mmol/L High 22-30 [facility] Creatinine [Mass/Vol] 0.60 mg/dL Low 0.7-1.[address] [facility] EST. GFR, 123 ml/min/1.73sq.m [facility] EST. GFR,Non 102 ml/min/1.73sq.m [facility] GFR Information Average GFR for 70+ years old = 75. Normal [facility] Comment on above: Result Comment: Rigging Foreman aviva Kidney disease, GFR = <60. Kidney failure, GFR = <15. The GFR estimate is not adjusted for extreme body surface area or acute process, nor has it been validated for women or ethnic groups other than and . Glucose [Mass/Vol] 96 mg/dL Normal 70-100 [facility] Comment on above: Result Comment: NORMAL <100 mg/dL PREDIABETES 101-126 mg/dL DIABETES 126 mg/dL or higher Potassium [Moles/Vol] 3.7 mmol/L Normal 3.5-5.[address] [facility] Sodium [Moles/Vol] 135 mmol/L Low 137-145 [facility] Urea nitrogen [Mass/Vol] 8 mg/dL Normal 7-20 [facility] C REACTIVE PROTEINon 024 CRP [Mass/Vol] 42.0 mg/L High 0-10 [facility] CBCon 01-23-2024 ABSOLUTE BAS 0.0 10*3/uL Normal 0.0-0.2 [facility] ABSOLUTE EOS 0.1 10*3/uL Normal 0.0-0.7 [facility] ABSOLUTE NEUTROPHIL COUNT 4.0 10*3/uL Normal 1.4-6.5 [facility] Basophils/100 WBC (Bld) 0.8 % Normal 0.0-2.0 [facility] DTYPE AUTO DIFF Normal [facility] Eosinophils/100 WBC (Bld) 2.4 % Normal 0.0-11.0 [facility] Lymphocytes (Bld) [#/Vol] 1.2 10*3/uL Normal 1.2-3.4 [facility] Lymphocytes/100 WBC (Bld) 19.6 % Low 20.0-55.0 [facility] Monocytes (Bld) [#/Vol] 0.6 10*3/uL Normal 0.0-0.7 [facility] Monocytes/100 WBC (Bld) 9.8 % Normal 0.0-10.0 [facility] Neutrophils/100 WBC (Bld) 67.4 % Normal 37.0-75.0 [facility] Erythrocyte distribution width (RBC) [Ratio] 13.9 % Normal 11.5-14.5 [facility] Hematocrit (Bld) [Volume fraction] 29.1 % Low 36.0-48.0 [facility] Hemoglobin (Bld) [Mass/Vol] 10.0 g/dL Low 12.0-16.0 [facility] MCH (RBC) [Entitic mass] 32.2 pg Normal 26.0-35.0 [facility] MCHC (RBC) [Mass/Vol] 34.3 g/dL Normal 27.0-37.[address] [facility] MCV (RBC) [Entitic vol] 94.0 fL Normal 80.0-100.0 [facility] Platelet mean volume (Bld) [Entitic vol] 6.7 fL Low 7.4-11.0 [facility] Platelets (Bld) [#/Vol] 425 10*3/uL High 130-400 [facility] RBC (Bld) [#/Vol] 3.10 10*6/uL Low 4.0-5.4 [facility] WBC (Bld) [#/Vol] 6.0 10*3/uL Normal 3.6-11.0 [facility] LIPASE,SERUMon 01-23-2024 LIPASE,SERUM 32 U/L Normal 23-300 [facility] LIVER PANELon 01-23-2024 Albumin [Mass/Vol] 2.6 g/dL Low 3.5-5.0 [facility] ALP [Catalytic activity/Vol] 99 U/L Normal 38-126 [facility] ALT [Catalytic activity/Vol] 10 U/L Normal <35 [facility] AST [Catalytic activity/Vol] 25 U/L Normal 14-36 [facility] Bilirubin [Mass/Vol] 0.3 mg/dL Normal 0.2-1.3 [facility] Bilirubin.indirect [Mass/Vol] 0.3 mg/dL Normal 0-0.4 [facility] Protein [Mass/Vol] 5.6 g/dL Low 6.3-8.2 [facility] Laboratory - Chemistry and C hemistry - challengeon 01-23-2024 Albumin [Mass/Vol] 2.6 g/dL Low [facility] ALP [Catalytic activity/Vol] 99 U/L [facility] ALT [Catalytic activity/Vol] 10 U/L NINF [facility] Anion gap [Moles/Vol] 1 mmol/L Low [facility] AST [Catalytic activity/Vol] 25 U/L [facility] Bilirubin [Mass/Vol] 0.3 mg/dL [facility] Bilirubin.direct [Mass/Vol] 0.3 mg/dL [facility] Calcium [Mass/Vol] 8.5 mg/dL [facility] Chloride [Moles/Vol] 101 mmol/L [facility] CO2 [Moles/Vol] 33 mmol/L High [facility] Creatinine [Mass/Vol] 0.60 mg/dL Low [facility] CRP [Mass/Vol] 42.0 mg/L High 0 - 10 MG/L [facility] GFR/1.73 sq M.predicted among blacks MDRD (S/P/Bld) [Vol rate/Area] 123 mL/min/{1.73_m2} ml/min/1.73sq .m [facility] GFR/1.73 sq M.predicted among non-blacks MDRD (S/P/Bld) [Vol rate/Area] 102 mL/min/{1.73_m2} ml/min/1.73sq .m [facility] Glucose post fast [Mass/Vol] 96 mg/dL [facility] Lipase [Catalytic activity/Vol] 32 U/L 23 - 300 U/L [facility] Potassium [Moles/Vol] 3.7 mmol/L [facility] Protein [Mass/Vol] 5.6 g/dL Low [facility] Sodium [Moles/Vol] 135 mmol/L Low [facility] Urea nitrogen [Mass/Vol] 8 mg/dL [facility] Laboratory - Hematology and Cell countson 01-23-2024 Basophils/100 WBC (Bld) 0.8 % 0.0 - 2.0 % [facility] Differential cell count method Nom (Bld) AUTO DIFF % [facility] Eosinophils (Bld) [#/Vol] 0.1 10*3/uL 0.0 - 0.7 10*3/uL [facility] Eosinophils/100 WBC (Bld) 2.4 % 0.0 - 11.0 % [facility] Erythrocyte distribution width (RBC) [Ratio] 13.9 % 11.5 - 14.5 % [facility] Hematocrit (Bld) [Volume fraction] 29.1 % Low 36.0 - 48.0 % [facility] Hemoglobin (Bld) [Mass/Vol] 10.0 g/dL Low [facility] Lymphocytes (Bld) [#/Vol] 1.2 10*3/uL 1.2 - 3.4 10*3/uL [facility] Lymphocytes/100 WBC (Bld) 19.6 % Low 20.0 - 55.0 % [facility] MCH (RBC) [Entitic mass] 32.2 pg 26.0 - 35.0 PG [facility] MCHC (RBC) [Mass/Vol] 34.3 g/dL [facility] MCV (RBC) [Entitic vol] 94.0 fL [facility] Monocytes (Bld) [#/Vol] 0.6 10*3/uL 0.0 - 0.7 10*3/uL [facility] Monocytes/100 WBC (Bld) 9.8 % 0.0 - 10.0 % [facility] Neutrophils (Bld) [#/Vol] 4.0 10*3/uL 1.4 - 6.5 10*3/uL [facility] Neutrophils/100 WBC (Bld) 67.4 % 37.0 - 75.0 % [facility] Platelet mean volume (Bld) [Entitic vol] 6.7 fL Low [facility] Platelets (Bld) [#/Vol] 425 10*3/uL High 130 - 400 10*3/uL [facility] RBC (Bld) [#/Vol] 3.10 10*6/uL Low 4.0 - 5.4 10*6/uL [facility] WBC (Bld) [#/Vol] 6.0 10*3/uL 3.6 - 11.0 10*3/uL [facility] Laboratory - Microbiology an d Antimicrobial susceptibilityon 01-23-2024 Bacteria identified Cx Nom (Unsp spec) NO PATHOGENS ISOLATED [facility] Laboratory - Miscellaneous t estson 01-23-2024 Service comment (Unsp spec) [Interp] 01/23/2024 [facility] Laboratory - Urinalysison Leukocyte esterase+Nitrite Test strip Ql (U) Positive [facility] No Panel Informationon 01-22 SPECIMEN DESCRIPTION URINE - OTHER A [facility] GFR COMMENT Average GFR for 70+ years old = 75. [facility] Interpretation and review of laboratory results Abnormal [facility] ABSOLUTE BASOPHIL COUNT 0.0 10*3/uL 0.0 - 0.2 10*3/uL [facility] Interpretation and review of laboratory results Abnormal [facility] BMP FASTINGon 01-22-2024 Anion gap [Moles/Vol] 3 mmol/L Low 8-[address] [facility] Comment on above: Performed By: #### F EPRO ####Testing performed at [address] [address] Calcium [Mass/Vol] 8.8 mg/dL Normal 8.4-10.2 [facility] Comment on above: Performed By: #### F EPRO ####Testing performed at [address] [address] Chloride [Moles/Vol] 101 mmol/L Normal 98-107 [facility] Comment on above: Result Comment: Shonda matthews note: Triglyceride levels of 600mg/dL or higher may positively bias chloride results by approximately 2.1 mmol Performed By: #### F EPRO ####Testing performed at [address] [address] CO2 [Moles/Vol] 33 mmol/L High 22-30 [facility] Comment on above: Performed By: #### F EPRO ####Testing performed at [address] [address] Creatinine [Mass/Vol] 0.60 mg/dL Low 0.7-1.[address] [facility] Comment on above: Performed By: #### F EPRO ####Testing performed at [address] [place] [address] EST. GFR, 123 ml/min/1.73sq.m [facility] Comment on above: Performed By: #### F EPRO ####Testing performed at [address] [place] [address] EST. GFR,Non 102 ml/min/1.73sq.m [facility] Comment on above: Performed By: #### F EPRO ####Testing performed at [address] [place] [address] GFR Information Average GFR for 70+ years old = 75. Normal [facility] Comment on above: Result Comment: Rigging Foreman aviva Kidney disease, GFR = <60. Kidney failure, GFR = <15. The GFR estimate is not adjusted for extreme body surface area or acute process, nor has it been validated for women or ethnic groups other than and . Performed By: #### F EPRO ####Testing performed at [address] [address] Glucose [Mass/Vol] 88 mg/dL Normal 70-100 [facility] Comment on above: Result Comment: NORMAL <100 mg/dL PREDIABETES 101-126 mg/dL DIABETES 126 mg/dL or higher Performed By: #### F EPRO ####Testing performed at [address] [address] Potassium [Moles/Vol] 3.7 mmol/L Normal 3.5-5.[address] [facility] Comment on above: Performed By: #### F EPRO ####Testing performed at [address] [address] Sodium [Moles/Vol] 137 mmol/L Normal 137-145 [facility] Comment on above: Performed By: #### F EPRO ####Testing performed at [address] [address] Urea nitrogen [Mass/Vol] 8 mg/dL Normal 7-20 [facility] Comment on above: Performed By: #### F EPRO ####Testing performed at [address] [address] C REACTIVE PROTEINon 024 CRP [Mass/Vol] 58.3 mg/L High 0-10 [facility] Comment on above: Performed By: #### F EPRO ####Testing performed at [address] [address] CBCon 01-22-2024 ABSOLUTE BAS 0.0 10*3/uL Normal 0.0-0.2 [facility] Comment on above: Performed By: #### F EPRO ####Testing performed at [address] [place] [address] ABSOLUTE EOS 0.2 10*3/uL Normal 0.0-0.7 [facility] Comment on above: Performed By: #### F EPRO ####Testing performed at [address] [place] [address] ABSOLUTE NEUTROPHIL COUNT 3.8 10*3/uL Normal 1.4-6.5 [facility] Comment on above: Performed By: #### F EPRO ####Testing performed at [address] [place] [address] Basophils/100 WBC (Bld) 0.9 % Normal 0.0-2.0 [facility] Comment on above: Performed By: #### F EPRO ####Testing performed at [address] [place] [address] DTYPE AUTO DIFF Normal [facility] Comment on above: Performed By: #### F EPRO ####Testing performed at [address] [place] [address] Eosinophils/100 WBC (Bld) 3.2 % Normal 0.0-11.0 [facility] Comment on above: Performed By: #### F EPRO ####Testing performed at [address] [place] [address] Lymphocytes (Bld) [#/Vol] 1.1 10*3/uL Low 1.2-3.4 [facility] Comment on above: Performed By: #### F EPRO ####Testing performed at [address] [place] [address] Lymphocytes/100 WBC (Bld) 19.3 % Low 20.0-55.0 [facility] Comment on above: Performed By: #### F EPRO ####Testing performed at [address] [place] [address] Monocytes (Bld) [#/Vol] 0.5 10*3/uL Normal 0.0-0.7 [facility] Comment on above: Performed By: #### F EPRO ####Testing performed at [address] [address] Monocytes/100 WBC (Bld) 8.5 % Normal 0.0-10.0 [facility] Comment on above: Performed By: #### F EPRO ####Testing performed at [address] [address] Neutrophils/100 WBC (Bld) 68.1 % Normal 37.0-75.0 [facility] Comment on above: Performed By: #### F EPRO ####Testing performed at [address] [address] Erythrocyte distribution width (RBC) [Ratio] 14.1 % Normal 11.5-14.5 [facility] Comment on above: Performed By: #### F EPRO ####Testing performed at [address] [place] [address] Hematocrit (Bld) [Volume fraction] 31.8 % Low 36.0-48.0 [facility] Comment on above: Performed By: #### F EPRO ####Testing performed at [address] [place] [address] Hemoglobin (Bld) [Mass/Vol] 10.7 g/dL Low 12.0-16.0 [facility] Comment on above: Performed By: #### F EPRO ####Testing performed at [address] [address] MCH (RBC) [Entitic mass] 31.7 pg Normal 26.0-35.0 [facility] Comment on above: Performed By: #### F EPRO ####Testing performed at [address] [place] [address] MCHC (RBC) [Mass/Vol] 33.6 g/dL Normal 27.0-37.[address] [facility] Comment on above: Performed By: #### F EPRO ####Testing performed at [address] [address] MCV (RBC) [Entitic vol] 94.6 fL Normal 80.0-100.0 [facility] Comment on above: Performed By: #### F EPRO ####Testing performed at [address] [address] Platelet mean volume (Bld) [Entitic vol] 7.0 fL Low 7.4-11.0 [facility] Comment on above: Performed By: #### F EPRO ####Testing performed at [address] [address] Platelets (Bld) [#/Vol] 407 10*3/uL High 130-400 [facility] Comment on above: Performed By: #### F EPRO ####Testing performed at [address] [address] RBC (Bld) [#/Vol] 3.36 10*6/uL Low 4.0-5.4 [facility] Comment on above: Performed By: #### F EPRO ####Testing performed at [address] [address] WBC (Bld) [#/Vol] 5.6 10*3/uL Normal 3.6-11.0 [facility] Comment on above: Performed By: #### F EPRO ####Testing performed at [address] [address] ESRon 01-22-2024 ESR (Bld) [Velocity] 71 mm/h High 0-30 [facility] Comment on above: Performed By: #### F EPRO ####Testing performed at [address] [place] [address] IRON PROFILEon 01-22-2024 IRON BINDING 164 UG/DL Low 250-450 [facility] Comment on above: Performed By: #### F EPRO ####Testing performed at [address] [place] [address] TRANSFERRIN SATURATION,CALCULATED 23 % Normal [facility] Comment on above: Performed By: #### F EPRO ####Testing performed at [address] [place] [address] Iron [Mass/Vol] 37 ug/dL Normal 37-170 [facility] Comment on above: Performed By: #### F EPRO ####Testing performed at [address] [place] [address] Laboratory - Chemistry and C hemistry - challengeon 01-22-2024 Iron [Mass/Vol] 37 ug/dL [facility] Iron binding capacity [Mass/Vol] 164 Low [facility] Iron saturation [Mass fraction] 23 % [facility] Anion gap [Moles/Vol] 3 mmol/L Low [facility] Calcium [Mass/Vol] 8.8 mg/dL [facility] Chloride [Moles/Vol] 101 mmol/L [facility] CO2 [Moles/Vol] 33 mmol/L High [facility] Creatinine [Mass/Vol] 0.60 mg/dL Low [facility] CRP [Mass/Vol] 58.3 mg/L High 0 - 10 MG/L [facility] GFR/1.73 sq M.predicted among blacks MDRD (S/P/Bld) [Vol rate/Area] 123 mL/min/{1.73_m2} ml/min/1.73sq .m [facility] GFR/1.73 sq M.predicted among non-blacks MDRD (S/P/Bld) [Vol rate/Area] 102 mL/min/{1.73_m2} ml/min/1.73sq .m [facility] Glucose post fast [Mass/Vol] 88 mg/dL [facility] Potassium [Moles/Vol] 3.7 mmol/L [facility] Sodium [Moles/Vol] 137 mmol/L [facility] Urea nitrogen [Mass/Vol] 8 mg/dL [facility] Laboratory - Hematology and Cell countson 01-22-2024 ESR (Bld) [Velocity] 71 mm/h High [facility] Basophils/100 WBC (Bld) 0.9 % 0.0 - 2.0 % [facility] Differential cell count method Nom (Bld) AUTO DIFF % [facility] Eosinophils (Bld) [#/Vol] 0.2 10*3/uL 0.0 - 0.7 10*3/uL [facility] Eosinophils/100 WBC (Bld) 3.2 % 0.0 - 11.0 % [facility] Erythrocyte distribution width (RBC) [Ratio] 14.1 % 11.5 - 14.5 % [facility] Hematocrit (Bld) [Volume fraction] 31.8 % Low 36.0 - 48.0 % [facility] Hemoglobin (Bld) [Mass/Vol] 10.7 g/dL Low [facility] Lymphocytes (Bld) [#/Vol] 1.1 10*3/uL Low 1.2 - 3.4 10*3/uL [facility] Lymphocytes/100 WBC (Bld) 19.3 % Low 20.0 - 55.0 % [facility] MCH (RBC) [Entitic mass] 31.7 pg 26.0 - 35.0 PG [facility] MCHC (RBC) [Mass/Vol] 33.6 g/dL [facility] MCV (RBC) [Entitic vol] 94.6 fL [facility] Monocytes (Bld) [#/Vol] 0.5 10*3/uL 0.0 - 0.7 10*3/uL [facility] Monocytes/100 WBC (Bld) 8.5 % 0.0 - 10.0 % [facility] Neutrophils (Bld) [#/Vol] 3.8 10*3/uL 1.4 - 6.5 10*3/uL [facility] Neutrophils/100 WBC (Bld) 68.1 % 37.0 - 75.0 % [facility] Platelet mean volume (Bld) [Entitic vol] 7.0 fL Low [facility] Platelets (Bld) [#/Vol] 407 10*3/uL High 130 - 400 10*3/uL [facility] RBC (Bld) [#/Vol] 3.36 10*6/uL Low 4.0 - 5.4 10*6/uL [facility] WBC (Bld) [#/Vol] 5.6 10*3/uL 3.6 - 11.0 10*3/uL [facility] No Panel Informationon 01-21 Interpretation and review of laboratory results Abnormal [facility] Interpretation and review of laboratory results Abnormal [facility] GFR COMMENT Average GFR for 70+ years old = 75. [facility] Interpretation and review of laboratory results Abnormal [facility] ABSOLUTE BASOPHIL COUNT 0.0 10*3/uL 0.0 - 0.2 10*3/uL [facility] Interpretation and review of laboratory results Abnormal [facility] BMP FASTINGon 01-21-2024 Anion gap [Moles/Vol] 3 mmol/L Low 8-[address] [facility] Calcium [Mass/Vol] 8.6 mg/dL Normal 8.4-10.2 [facility] Chloride [Moles/Vol] 102 mmol/L Normal 98-107 [facility] Comment on above: Result Comment: Plea se note: Triglyceride levels of 600mg/dL or higher may positively bias chloride results by approximately 2.1 mmol CO2 [Moles/Vol] 32 mmol/L High 22-30 [facility] Creatinine [Mass/Vol] 0.60 mg/dL Low 0.7-1.[address] [facility] EST. GFR, 123 ml/min/1.73sq.m [facility] EST. GFR,Non 102 ml/min/1.73sq.m [facility] GFR Information Average GFR for 70+ years old = 75. Normal [facility] Comment on above: Result Comment: [employer] aviva Kidney disease, GFR = <60. Kidney failure, GFR = <15. The GFR estimate is not adjusted for extreme body surface area or acute process, nor has it been validated for women or ethnic groups other than and . Glucose [Mass/Vol] 100 mg/dL Normal 70-100 [facility] Comment on above: Result Comment: NORMAL <100 mg/dL PREDIABETES 101-126 mg/dL DIABETES 126 mg/dL or higher Potassium [Moles/Vol] 3.6 mmol/L Normal 3.5-5.[address] [facility] Sodium [Moles/Vol] 137 mmol/L Normal 137-145 [facility] Urea nitrogen [Mass/Vol] 8 mg/dL Normal 7-20 [facility] CBCon 01-21-2024 ABSOLUTE BAS 0.0 10*3/uL Normal 0.0-0.2 [facility] ABSOLUTE EOS 0.2 10*3/uL Normal 0.0-0.7 [facility] ABSOLUTE NEUTROPHIL COUNT 3.9 10*3/uL Normal 1.4-6.5 [facility] Basophils/100 WBC (Bld) 0.6 % Normal 0.0-2.0 [facility] DTYPE AUTO DIFF Normal [facility] Eosinophils/100 WBC (Bld) 3.6 % Normal 0.0-11.0 [facility] Lymphocytes (Bld) [#/Vol] 1.2 10*3/uL Normal 1.2-3.4 [facility] Lymphocytes/100 WBC (Bld) 19.7 % Low 20.0-55.0 [facility] Monocytes (Bld) [#/Vol] 0.6 10*3/uL Normal 0.0-0.7 [facility] Monocytes/100 WBC (Bld) 9.9 % Normal 0.0-10.0 [facility] Neutrophils/100 WBC (Bld) 66.2 % Normal 37.0-75.0 [facility] Erythrocyte distribution width (RBC) [Ratio] 14.1 % Normal 11.5-14.5 [facility] Hematocrit (Bld) [Volume fraction] 27.7 % Low 36.0-48.0 [facility] Hemoglobin (Bld) [Mass/Vol] 9.5 g/dL Low 12.0-16.0 [facility] MCH (RBC) [Entitic mass] 32.6 pg Normal 26.0-35.0 [facility] MCHC (RBC) [Mass/Vol] 34.3 g/dL Normal 27.0-37.[address] [facility] MCV (RBC) [Entitic vol] 95.0 fL Normal 80.0-100.0 [facility] Platelet mean volume (Bld) [Entitic vol] 6.9 fL Low 7.4-11.0 [facility] Platelets (Bld) [#/Vol] 370 10*3/uL Normal 130-400 [facility] RBC (Bld) [#/Vol] 2.91 10*6/uL Low 4.0-5.4 [facility] WBC (Bld) [#/Vol] 5.9 10*3/uL Normal 3.6-11.0 [facility] Laboratory - Chemistry and C hemistry - challengeon 01-21-2024 Anion gap [Moles/Vol] 3 mmol/L Low [facility] Calcium [Mass/Vol] 8.6 mg/dL [facility] Chloride [Moles/Vol] 102 mmol/L [facility] CO2 [Moles/Vol] 32 mmol/L High [facility] Creatinine [Mass/Vol] 0.60 mg/dL Low [facility] GFR/1.73 sq M.predicted among blacks MDRD (S/P/Bld) [Vol rate/Area] 123 mL/min/{1.73_m2} ml/min/1.73sq .m [facility] GFR/1.73 sq M.predicted among non-blacks MDRD (S/P/Bld) [Vol rate/Area] 102 mL/min/{1.73_m2} ml/min/1.73sq .m [facility] Glucose post fast [Mass/Vol] 100 mg/dL [facility] Potassium [Moles/Vol] 3.6 mmol/L [facility] Sodium [Moles/Vol] 137 mmol/L [facility] Urea nitrogen [Mass/Vol] 8 mg/dL [facility] Laboratory - Hematology and Cell countson 01-21-2024 Basophils/100 WBC (Bld) 0.6 % 0.0 - 2.0 % [facility] Differential cell count method Nom (Bld) AUTO DIFF % [facility] Eosinophils (Bld) [#/Vol] 0.2 10*3/uL 0.0 - 0.7 10*3/uL [facility] Eosinophils/100 WBC (Bld) 3.6 % 0.0 - 11.0 % [facility] Erythrocyte distribution width (RBC) [Ratio] 14.1 % 11.5 - 14.5 % [facility] Hematocrit (Bld) [Volume fraction] 27.7 % Low 36.0 - 48.0 % [facility] Hemoglobin (Bld) [Mass/Vol] 9.5 g/dL Low [facility] Lymphocytes (Bld) [#/Vol] 1.2 10*3/uL 1.2 - 3.4 10*3/uL [facility] Lymphocytes/100 WBC (Bld) 19.7 % Low 20.0 - 55.0 % [facility] MCH (RBC) [Entitic mass] 32.6 pg 26.0 - 35.0 PG [facility] MCHC (RBC) [Mass/Vol] 34.3 g/dL [facility] MCV (RBC) [Entitic vol] 95.0 fL [facility] Monocytes (Bld) [#/Vol] 0.6 10*3/uL 0.0 - 0.7 10*3/uL [facility] Monocytes/100 WBC (Bld) 9.9 % 0.0 - 10.0 % [facility] Neutrophils (Bld) [#/Vol] 3.9 10*3/uL 1.4 - 6.5 10*3/uL [facility] Neutrophils/100 WBC (Bld) 66.2 % 37.0 - 75.0 % [facility] Platelet mean volume (Bld) [Entitic vol] 6.9 fL Low [facility] Platelets (Bld) [#/Vol] 370 10*3/uL 130 - 400 10*3/uL [facility] RBC (Bld) [#/Vol] 2.91 10*6/uL Low 4.0 - 5.4 10*6/uL [facility] WBC (Bld) [#/Vol] 5.9 10*3/uL 3.6 - 11.0 10*3/uL [facility] Laboratory - Microbiology an d Antimicrobial susceptibilityon 01-21-2024 MRSA isol Org specific cx Ql (Nose) Negative NEGATIVE [facility] Laboratory - Urinalysison Bacteria LM.HPF (Urine sed) [#/Area] TRACE Abnormal NEGATIVE [facility] Casts LM.LPF (Urine sed) [#/Area] NONE NONE /LPF [facility] Crystals LM Nom (Urine sed) NONE NONE [facility] Epithelial cells LM Ql (Urine sed) 1 TO 5 /HPF [facility] Mucus Ql (Urine sed) Negative NEGATIVE [facility] RBC LM.HPF (Urine sed) [#/Area] 1 TO 5 NEGATIVE /HPF [facility] Urine sediment comments LM Girish (Urine sed) REFLEX CULTURE PER ESTABLISHED CRITERIA. [facility] WBC LM.HPF (Urine sed) [#/Area] Negative NEGATIVE /HPF [facility] MRSA SCREENon 01-21-2024 MRSA DNA SMILEY+probe Ql (Unsp spec) Negative Normal NEGATIVE [facility] STAPH AUREUS SCREEN Negative Normal NEGATIVE [facility] Comment on above: Result Comment: TEST ING PERFORMED BY PCR No Panel Informationon 01-20 Interpretation and review of laboratory results Abnormal [facility] STAPHYOCOCCUS AUREUS BY PCR Negative NEGATIVE [facility] GFR COMMENT Average GFR for 70+ years old = 75. [facility] Interpretation and review of laboratory results Abnormal [facility] ABSOLUTE BASOPHIL COUNT 0.0 10*3/uL 0.0 - 0.2 10*3/uL [facility] Interpretation and review of laboratory results Abnormal [facility] URINE CULTUREon 01-21-2024 Bacteria identified Cx Nom (U) SPECIMEN DESCRIPTION URINE - OTHER UA DIPSTICK LEUKOCYTE POSITIVE * Result Note: NITRITE NEGATIVE * CULTURE NO PATHOGENS ISOLATED * Result Note: Testing performed at [place] [address] * REPORT STATUS 01/23/2024 * Result Note: FINAL * Normal [facility] Comment on above: Performed By: #### A URNC #### Testing performed at [address] [address] Testing performed at [address] [address] URINE MICROSCOPICon 01-21-20 24 BACTERIA TRACE Abnormal NEGATIVE [facility] CASTS NONE Normal NONE [facility] CRYSTAL NONE Normal NONE [facility] Epithelial cells LM Ql (Urine sed) 1 TO 5 Normal [facility] Mucus Ql (Urine sed) Negative Normal NEGATIVE [facility] URINE COMMENT REFLEX CULTURE PER ESTABLISHED CRITERIA. Normal [facility] URINE RBC'S 1 TO 5 Normal NEGATIVE [facility] URINE WBC'S Negative Normal NEGATIVE [facility] 25 0H VITAMIN D LEVELon 25 0H VITAMIN D LEVEL 16.9 NG/ML Normal [facility] Comment on above: Result Comment: DEFICIENT <20 NG/ML INSUFFICIENT 20-<30 NG/ML SUFFICIENT 30-100 NG/ML POTENTIAL TOXICITY >100 NG/ML BMP FASTINGon 01-20-2024 Anion gap [Moles/Vol] 2 mmol/L Low 8-[address] [facility] Comment on above: Performed By: #### A CBC, FEPRO ####Testing performed at [address] [address] Calcium [Mass/Vol] 8.3 mg/dL Low 8.4-10.2 [facility] Comment on above: Performed By: #### A CBC, FEPRO ####Testing performed at [address] [address] Chloride [Moles/Vol] 103 mmol/L Normal 98-107 [facility] Comment on above: Result Comment: Plea se note: Triglyceride levels of 600mg/dL or higher may positively bias chloride results by approximately 2.1 mmol Performed By: #### A CBC, FEPRO ####Testing performed at [address] [address] CO2 [Moles/Vol] 31 mmol/L High 22-30 [facility] Comment on above: Performed By: #### A CBC, FEPRO ####Testing performed at [address] [address] Creatinine [Mass/Vol] 0.60 mg/dL Low 0.7-1.[address] [facility] Comment on above: Performed By: #### A CBC, FEPRO ####Testing performed at [address] [address] EST. GFR, 123 ml/min/1.73sq.m [facility] Comment on above: Performed By: #### A CBC, FEPRO ####Testing performed at [address] [address] EST. GFR,Non 102 ml/min/1.73sq.m [facility] Comment on above: Performed By: #### A CBC, FEPRO ####Testing performed at [place] [id number] GFR Information Average GFR for 70+ years old = 75. [facility] Comment on above: Result Comment: [employer] aviva Kidney disease, GFR = <60. Kidney failure, GFR = <15. The GFR estimate is not adjusted for extreme body surface area or acute process, nor has it been validated for women or ethnic groups other than and . Performed By: #### A CBC, FEPRO ####Testing performed at [place] [id number] Glucose [Mass/Vol] 91 mg/dL Normal 70-100 [facility] Comment on above: Result Comment: NORMAL <100 mg/dL PREDIABETES 101-126 mg/dL DIABETES 126 mg/dL or higher Performed By: #### A CBC, FEPRO ####Testing performed at [address] [address] Potassium [Moles/Vol] 3.8 mmol/L Normal 3.5-5.[address] [facility] Comment on above: Performed By: #### A CBC, FEPRO ####Testing performed at [place] [id number] Sodium [Moles/Vol] 136 mmol/L Low 137-145 [facility] Comment on above: Performed By: #### A CBC, FEPRO ####Testing performed at [facility] [address] [address] Urea nitrogen [Mass/Vol] 9 mg/dL Normal 7-20 [facility] Comment on above: Performed By: #### A CBC, FEPRO ####Testing performed at [address] [address] CBCon 01-20-2024 ABSOLUTE BAS 0.0 10*3/uL Normal 0.0-0.2 [facility] Comment on above: Performed By: #### A CBC, FEPRO ####Testing performed at [address] [address] ABSOLUTE EOS 0.2 10*3/uL Normal 0.0-0.7 [facility] Comment on above: Performed By: #### A CBC, FEPRO ####Testing performed at [address] [address] ABSOLUTE NEUTROPHIL COUNT 4.1 10*3/uL Normal 1.4-6.5 [facility] Comment on above: Performed By: #### A CBC, FEPRO ####Testing performed at [address] [address] Basophils/100 WBC (Bld) 0.8 % Normal 0.0-2.0 [facility] Comment on above: Performed By: #### A CBC, FEPRO ####Testing performed at [address] [address] DTYPE AUTO DIFF Normal [facility] Comment on above: Performed By: #### A CBC, FEPRO ####Testing performed at [address] [address] Eosinophils/100 WBC (Bld) 3.0 % Normal 0.0-11.0 [facility] Comment on above: Performed By: #### A CBC, FEPRO ####Testing performed at [address] [address] Lymphocytes (Bld) [#/Vol] 1.2 10*3/uL Normal 1.2-3.4 [facility] Comment on above: Performed By: #### A CBC, FEPRO ####Testing performed at [address] [address] Lymphocytes/100 WBC (Bld) 19.6 % Low 20.0-55.0 [facility] Comment on above: Performed By: #### A CBC, FEPRO ####Testing performed at [address] [address] Monocytes (Bld) [#/Vol] 0.7 10*3/uL Normal 0.0-0.7 [facility] Comment on above: Performed By: #### A CBC, FEPRO ####Testing performed at [address] [address] Monocytes/100 WBC (Bld) 10.9 % High 0.0-10.0 [facility] Comment on above: Performed By: #### A CBC, FEPRO ####Testing performed at [address] [address] Neutrophils/100 WBC (Bld) 65.7 % Normal 37.0-75.0 [facility] Comment on above: Performed By: #### A CBC, FEPRO ####Testing performed at [address] [address] Erythrocyte distribution width (RBC) [Ratio] 14.0 % Normal 11.5-14.5 [facility] Comment on above: Performed By: #### A CBC, FEPRO ####Testing performed at [address] [address] Hematocrit (Bld) [Volume fraction] 27.6 % Low 36.0-48.0 [facility] Comment on above: Performed By: #### A CBC, FEPRO ####Testing performed at [address] [address] Hemoglobin (Bld) [Mass/Vol] 9.4 g/dL Low 12.0-16.0 [facility] Comment on above: Performed By: #### A CBC, FEPRO ####Testing performed at [address] [address] MCH (RBC) [Entitic mass] 32.3 pg Normal 26.0-35.0 [facility] Comment on above: Performed By: #### A CBC, FEPRO ####Testing performed at [address] [address] MCHC (RBC) [Mass/Vol] 34.0 g/dL Normal 27.0-37.[address] [facility] Comment on above: Performed By: #### A CBC, FEPRO ####Testing performed at [address] [address] MCV (RBC) [Entitic vol] 95.0 fL Normal 80.0-100.0 [facility] Comment on above: Performed By: #### A CBC, FEPRO ####Testing performed at [address] [address] Platelet mean volume (Bld) [Entitic vol] 6.9 fL Low 7.4-11.0 [facility] Comment on above: Performed By: #### A CBC, FEPRO ####Testing performed at [address] [address] Platelets (Bld) [#/Vol] 357 10*3/uL Normal 130-400 [facility] Comment on above: Performed By: #### A CBC, FEPRO ####Testing performed at [address] [address] RBC (Bld) [#/Vol] 2.90 10*6/uL Low 4.0-5.4 [facility] Comment on above: Performed By: #### A CBC, FEPRO ####Testing performed at [address] [address] WBC (Bld) [#/Vol] 6.3 10*3/uL Normal 3.6-11.0 [facility] Comment on above: Performed By: #### A CBC, FEPRO ####Testing performed at [facility] [place] [address] IRON PROFILEon 01-20-2024 IRON BINDING 144 UG/DL Low 250-450 [facility] Comment on above: Performed By: #### A CBC #### Testing performed at [place] [address] [place] [address] TRANSFERRIN SATURATION,CALCULATED 20 % Normal [facility] Comment on above: Performed By: #### A CBC #### Testing performed at [place] [address] [place] [address] Iron [Mass/Vol] 29 ug/dL Low 37-170 [facility] Comment on above: Performed By: #### A CBC #### Testing performed at [place] [address] [place] [address] Laboratory - Chemistry and C hemistry - challengeon 01-20-2024 25-hydroxyvitamin D [Mass/Vol] 16.9 NG/ML [facility] Parathyrin.intact [Mass/Vol] 40.2 pg/mL 14.5 - 75.2 pg/mL [facility] Iron [Mass/Vol] 29 ug/dL Low [facility] Iron binding capacity [Mass/Vol] 144 Low [facility] Anion gap [Moles/Vol] 2 mmol/L Low [facility] Calcium [Mass/Vol] 8.3 mg/dL Low [facility] Chloride [Moles/Vol] 103 mmol/L [facility] CO2 [Moles/Vol] 31 mmol/L High [facility] Creatinine [Mass/Vol] 0.60 mg/dL Low [facility] GFR/1.73 sq M.predicted among blacks MDRD (S/P/Bld) [Vol rate/Area] 123 mL/min/{1.73_m2} ml/min/1.73sq .m [facility] GFR/1.73 sq M.predicted among non-blacks MDRD (S/P/Bld) [Vol rate/Area] 102 mL/min/{1.73_m2} ml/min/1.73sq .m [facility] Glucose post fast [Mass/Vol] 91 mg/dL [facility] Potassium [Moles/Vol] 3.8 mmol/L [facility] Sodium [Moles/Vol] 136 mmol/L Low [facility] Urea nitrogen [Mass/Vol] 9 mg/dL [facility] Laboratory - Hematology and Cell countson 01-20-2024 Basophils/100 WBC (Bld) 0.8 % 0.0 - 2.0 % [facility] Differential cell count method Nom (Bld) AUTO DIFF % [facility] Eosinophils (Bld) [#/Vol] 0.2 10*3/uL 0.0 - 0.7 10*3/uL [facility] Eosinophils/100 WBC (Bld) 3.0 % 0.0 - 11.0 % [facility] Erythrocyte distribution width (RBC) [Ratio] 14.0 % 11.5 - 14.5 % [facility] Hematocrit (Bld) [Volume fraction] 27.6 % Low 36.0 - 48.0 % [facility] Hemoglobin (Bld) [Mass/Vol] 9.4 g/dL Low [facility] Lymphocytes (Bld) [#/Vol] 1.2 10*3/uL 1.2 - 3.4 10*3/uL [facility] Lymphocytes/100 WBC (Bld) 19.6 % Low 20.0 - 55.0 % [facility] MCH (RBC) [Entitic mass] 32.3 pg 26.0 - 35.0 PG [facility] MCHC (RBC) [Mass/Vol] 34.0 g/dL [facility] MCV (RBC) [Entitic vol] 95.0 fL [facility] Monocytes (Bld) [#/Vol] 0.7 10*3/uL 0.0 - 0.7 10*3/uL [facility] Monocytes/100 WBC (Bld) 10.9 % High 0.0 - 10.0 % [facility] Neutrophils (Bld) [#/Vol] 4.1 10*3/uL 1.4 - 6.5 10*3/uL [facility] Neutrophils/100 WBC (Bld) 65.7 % 37.0 - 75.0 % [facility] Platelet mean volume (Bld) [Entitic vol] 6.9 fL Low [facility] Platelets (Bld) [#/Vol] 357 10*3/uL 130 - 400 10*3/uL [facility] RBC (Bld) [#/Vol] 2.90 10*6/uL Low 4.0 - 5.4 10*6/uL [facility] WBC (Bld) [#/Vol] 6.3 10*3/uL 3.6 - 11.0 10*3/uL [facility] No Panel Informationon 01-19 [facility] Interpretation and review of laboratory results Abnormal [facility] Transferrin Saturation (%) 20 % [facility] GFR COMMENT Average GFR for 70+ years old = 75. [facility] Interpretation and review of laboratory results Abnormal [facility] ABSOLUTE BASOPHIL COUNT 0.0 10*3/uL 0.0 - 0.2 10*3/uL [facility] Interpretation and review of laboratory results Abnormal [facility] PTH,INTACTon 01-20-2024 PTH,INTACT 40.2 pg/mL Normal 14.5-75.2 [facility] Comment on above: Performed By: #### A CBC #### [place] [address] Portable XR Chest Viewson RADIOLOGY RADIOLOGY [facility] Radiology Study observation (narrative) [facility] Portable XR Chest ViewsOrder ed By: Katina Carlisle on 01-20-2024 [facility] XR CHEST 1 VIEW PORTABLEon 0 01-20-2024 XR CHEST 1 VIEW PORTABLE EXAM: XR CHEST 1 VIEW PORTABLE HISTORY: r/o rib fx COMPARISON: 11/09/2022. TECHNIQUE: AP upright view of the chest was obtained at 12:40 hours. FINDINGS: Cardiomegaly is again noted. The aorta is believed to be very tortuous. Trachea is generally midline. I am not seeing a definite mediastinal or hilar mass or adenopathy. There is some suspected left-sided pleural effusion blunting the costophrenic angle. Lung markings are coarsened which could be indicative of some underlying interstitial fibrosis. Rib detail is not optimal but I am not obviously seeing any displaced rib fracture. The infradiaphragmatic ribs are not well evaluated. IMPRESSION: 1. Cardiomegaly. 2. Aortic tortuosity. 3. Minor effusion in the left lung base is suspected. 4. Both lungs are expanded. I am not seeing any obvious displaced fracture although detail is limited. There are accentuated interstitial markings which may well be chronic. Normal [facility] BASIC METABOLIC PANELon 07-0 Anion gap [Moles/Vol] 3 mmol/L MMOL/L [facility] Calcium [Mass/Vol] 8.4 mg/dL [facility] Chloride [Moles/Vol] 105 mmol/L [facility] Comment on above: Please note: Triglyc eride levels of 600mg/dL or higher may positively bias chloride results by approximately 2.1 mmol CO2 [Moles/Vol] 27 mmol/L [facility] Creatinine [Mass/Vol] 0.60 mg/dL Low [facility] GFR COMMENT Average GFR for 70+ years old = 75. [facility] Comment on above: Chronic Kidney disea se, GFR = <60. Kidney failure, GFR = <15. The GFR estimate is not adjusted for extreme body surface area or acute process, nor has it been validated for women or ethnic groups other than and . GFR/1.73 sq M.predicted among blacks MDRD (S/P/Bld) [Vol rate/Area] 123 mL/min/{1.73_m2} ml/min/1.73sq .m [facility] GFR/1.73 sq M.predicted among non-blacks MDRD (S/P/Bld) [Vol rate/Area] 102 mL/min/{1.73_m2} ml/min/1.73sq .m [facility] Glucose post fast [Mass/Vol] 119 mg/dL High [facility] Comment on above: NORMAL <100 mg/dL PREDIABETES 101-126 mg/dL DIABETES 126 mg/dL or higher Interpretation and review of laboratory results Abnormal [facility] Potassium [Moles/Vol] 3.5 mmol/L [facility] Sodium [Moles/Vol] 135 mmol/L Low [facility] Urea nitrogen [Mass/Vol] 10 mg/dL [facility] BMP FASTINGon 01-18-2024 Anion gap [Moles/Vol] 3 mmol/L Normal [facility] Comment on above: Performed By: #### U GRUPO, UMAC #### Testing performed at [address] [address] Calcium [Mass/Vol] 8.4 mg/dL Normal 8.4-10.2 [facility] Comment on above: Performed By: #### U GRUPO, UMAC #### Testing performed at [address] [address] Chloride [Moles/Vol] 105 mmol/L Normal 98-107 [facility] Comment on above: Result Comment: Shonda matthews note: Triglyceride levels of 600mg/dL or higher may positively bias chloride results by approximately 2.1 mmol Performed By: #### U GRUPO, UMAC #### Testing performed at [address] [address] CO2 [Moles/Vol] 27 mmol/L Normal 22-30 [facility] Comment on above: Performed By: #### U GRUPO, UMAC #### Testing performed at [address] [address] Creatinine [Mass/Vol] 0.60 mg/dL Low 0.70-1.20 [facility] Comment on above: Performed By: #### U GRUPO, UMAC #### Testing performed at [address] [address] EST. GFR, 123 ml/min/1.73sq.m [facility] Comment on above: Performed By: #### U GRUPO, UMAC #### Testing performed at [address] [address] EST. GFR,Non 102 ml/min/1.73sq.m [facility] Comment on above: Performed By: #### U GRUPO, UMAC #### Testing performed at [address] [address] GFR Information Average GFR for 70+ years old = 75. Normal [facility] Comment on above: Result Comment: Rigging Foreman aviva Kidney disease, GFR = <60. Kidney failure, GFR = <15. The GFR estimate is not adjusted for extreme body surface area or acute process, nor has it been validated for women or ethnic groups other than and . Performed By: #### U GRUPO, UMAC #### Testing performed at [address] [address] Glucose [Mass/Vol] 119 mg/dL High 70-100 [facility] Comment on above: Result Comment: NORMAL <100 mg/dL PREDIABETES 101-126 mg/dL DIABETES 126 mg/dL or higher Performed By: #### U GRUPO, UMAC #### Testing performed at [address] [address] Potassium [Moles/Vol] 3.5 mmol/L Normal 3.5-5.1 [facility] Comment on above: Performed By: #### U GRUPO, UMAC #### Testing performed at [address] [address] Sodium [Moles/Vol] 135 mmol/L Low 137-145 [facility] Comment on above: Performed By: #### U GRUPO, UMAC #### Testing performed at [address] [address] Urea nitrogen [Mass/Vol] 10 mg/dL Normal 7-20 [facility] Comment on above: Performed By: #### U GRUPO, UMAC #### Testing performed at [address] [address] CBCon 01-17-2024 ABSOLUTE BAS 0.0 10*3/uL Normal 0.0-0.2 [facility] Comment on above: Performed By: #### U GRUPO, UMAC #### Testing performed at [address] [address] ABSOLUTE EOS 0.1 10*3/uL Normal 0.0-0.7 [facility] Comment on above: Performed By: #### U GRUPO, UMAC #### Testing performed at [address] [address] ABSOLUTE NEUTROPHIL COUNT 4.7 10*3/uL Normal 1.4-6.5 [facility] Comment on above: Performed By: #### U GRUPO, UMAC #### Testing performed at [address] [address] Basophils/100 WBC (Bld) 0.6 % Normal 0.0-2.0 [facility] Comment on above: Performed By: #### U GRUPO, UMAC #### Testing performed at [address] [address] DTYPE AUTO DIFF Normal [facility] Comment on above: Performed By: #### U GRUPO, UMAC #### Testing performed at [address] [address] Eosinophils/100 WBC (Bld) 1.9 % Normal 0.0-11.0 [facility] Comment on above: Performed By: #### U GRUPO, UMAC #### Testing performed at [address] [address] Erythrocyte distribution width (RBC) [Ratio] 13.9 % Normal 11.5-14.5 [facility] Comment on above: Performed By: #### U GRUPO, UMAC #### Testing performed at [address] [address] Hematocrit (Bld) [Volume fraction] 29.2 % Low 36.0-48.0 [facility] Comment on above: Performed By: #### U GRUPO, UMAC #### Testing performed at [address] [address] Hemoglobin (Bld) [Mass/Vol] 9.8 g/dL Low 12.0-16.0 [facility] Comment on above: Performed By: #### U GRUPO, UMAC #### Testing performed at [address] [address] Lymphocytes (Bld) [#/Vol] 1.1 10*3/uL Low 1.2-3.4 [facility] Comment on above: Performed By: #### U GRUPO, UMAC #### Testing performed at [address] [address] Lymphocytes/100 WBC (Bld) 16.5 % Low 20.0-55.0 [facility] Comment on above: Performed By: #### U GRUPO, UMAC #### Testing performed at [address] [address] MCH (RBC) [Entitic mass] 31.8 pg Normal 26.0-35.0 [facility] Comment on above: Performed By: #### U GRUPO, UMAC #### Testing performed at [address] [address] MCHC (RBC) [Mass/Vol] 33.6 g/dL Normal 27.0-37.0 [facility] Comment on above: Performed By: #### U GRUPO, UMAC #### Testing performed at [address] [address] MCV (RBC) [Entitic vol] 94.6 fL Normal 80.0-100.0 [facility] Comment on above: Performed By: #### U GRUPO, UMAC #### Testing performed at [address] [address] Monocytes (Bld) [#/Vol] 0.8 10*3/uL High 0.0-0.7 [facility] Comment on above: Performed By: #### U GRUPO, UMAC #### Testing performed at [address] [address] Monocytes/100 WBC (Bld) 11.9 % High 0.0-10.0 [facility] Comment on above: Performed By: #### U GRUPO, UMAC #### Testing performed at [address] [address] Neutrophils/100 WBC (Bld) 69.1 % Normal 37.0-75.0 [facility] Comment on above: Performed By: #### U GRUPO, UMAC #### Testing performed at [address] [address] Platelet mean volume (Bld) [Entitic vol] 7.9 fL Normal 7.4-11.0 [facility] Comment on above: Performed By: #### U GRUPO, UMAC #### Testing performed at [address] [address] Platelets (Bld) [#/Vol] 279 10*3/uL Normal 130-400 [facility] Comment on above: Performed By: #### U GRUPO, UMAC #### Testing performed at [address] [address] RBC (Bld) [#/Vol] 3.09 10*6/uL Low 4.0-5.4 [facility] Comment on above: Performed By: #### U GRUPO, UMAC #### Testing performed at [address] [address] WBC (Bld) [#/Vol] 6.8 10*3/uL Normal 3.6-11.0 [facility] Comment on above: Performed By: #### U GRUPO, UMAC #### Testing performed at [address] [address] CBC, EDIF, PLATELETon 2023 ABSOLUTE BASOPHIL COUNT 0.0 10*3/uL 0.0 - 0.2 10*3/uL [facility] Basophils/100 WBC (Bld) 0.6 % 0.0 - 2.0 % [facility] Differential cell count method Nom (Bld) AUTO DIFF % [facility] Eosinophils (Bld) [#/Vol] 0.1 10*3/uL 0.0 - 0.7 10*3/uL [facility] Eosinophils/100 WBC (Bld) 1.9 % 0.0 - 11.0 % [facility] Erythrocyte distribution width (RBC) [Ratio] 13.9 % 11.5 - 14.5 % [facility] Hematocrit (Bld) [Volume fraction] 29.2 % Low 36.0 - 48.0 % [facility] Hemoglobin (Bld) [Mass/Vol] 9.8 g/dL Low [facility] Interpretation and review of laboratory results Abnormal [facility] Lymphocytes (Bld) [#/Vol] 1.1 10*3/uL Low 1.2 - 3.4 10*3/uL [facility] Lymphocytes/100 WBC (Bld) 16.5 % Low 20.0 - 55.0 % [facility] MCH (RBC) [Entitic mass] 31.8 pg 26.0 - 35.0 PG [facility] MCHC (RBC) [Mass/Vol] 33.6 g/dL [facility] MCV (RBC) [Entitic vol] 94.6 fL [facility] Monocytes (Bld) [#/Vol] 0.8 10*3/uL High 0.0 - 0.7 10*3/uL [facility] Monocytes/100 WBC (Bld) 11.9 % High 0.0 - 10.0 % [facility] Neutrophils (Bld) [#/Vol] 4.7 10*3/uL 1.4 - 6.5 10*3/uL [facility] Neutrophils/100 WBC (Bld) 69.1 % 37.0 - 75.0 % [facility] Platelet mean volume (Bld) [Entitic vol] 7.9 fL [facility] Platelets (Bld) [#/Vol] 279 10*3/uL 130 - 400 10*3/uL [facility] RBC (Bld) [#/Vol] 3.09 10*6/uL Low 4.0 - 5.4 10*6/uL [facility] WBC (Bld) [#/Vol] 6.8 10*3/uL 3.6 - 11.0 10*3/uL [facility] RENAL FUNCTION PANELon 01-16 Albumin [Mass/Vol] 2.6 G/dl Low 3.5 - 5.0 G/dl [facility] Calcium [Mass/Vol] 8.2 mg/dL Low [facility] Chloride [Moles/Vol] 105 mmol/L [facility] Comment on above: Please note: Triglyc eride levels of 600mg/dL or higher may positively bias chloride results by approximately 2.1 mmol CO2 [Moles/Vol] 29 mmol/L [facility] Creatinine [Mass/Vol] 0.51 mg/dL Low [facility] GFR COMMENT Average GFR for 70+ years old = 75. [facility] Comment on above: Chronic Kidney disea se, GFR = <60. Kidney failure, GFR = <15. The GFR estimate is not adjusted for extreme body surface area or acute process, nor has it been validated for women or ethnic groups other than and . GFR/1.73 sq M.predicted among blacks MDRD (S/P/Bld) [Vol rate/Area] 149 mL/min/{1.73_m2} ml/min/1.73sq .m [facility] GFR/1.73 sq M.predicted among non-blacks MDRD (S/P/Bld) [Vol rate/Area] 123 mL/min/{1.73_m2} ml/min/1.73sq .m [facility] Glucose post fast [Mass/Vol] 106 mg/dL High [facility] Comment on above: NORMAL <100 mg/dL PREDIABETES 101-126 mg/dL DIABETES 126 mg/dL or higher Interpretation and review of laboratory results Abnormal [facility] Phosphate [Mass/Vol] 2.6 mg/dL [facility] Potassium [Moles/Vol] 3.3 mmol/L Low [facility] Sodium [Moles/Vol] 135 mmol/L Low [facility] Urea nitrogen [Mass/Vol] 10 mg/dL [facility] RENAL PANEL,FASTINGon 2023 ALBUMIN 2.6 G/dl Low 3.5-5.0 [facility] Comment on above: Performed By: #### U GRUPO, UMAC #### Testing performed at [address] [address] Calcium [Mass/Vol] 8.2 mg/dL Low 8.4-10.2 [facility] Comment on above: Performed By: #### U GRUPO, UMAC #### Testing performed at [address] [address] Chloride [Moles/Vol] 105 mmol/L Normal 98-107 [facility] Comment on above: Result Comment: Shonda matthews note: Triglyceride levels of 600mg/dL or higher may positively bias chloride results by approximately 2.1 mmol Performed By: #### U GRUPO, UMAC #### Testing performed at [address] [address] CO2 [Moles/Vol] 29 mmol/L Normal 22-30 [facility] Comment on above: Performed By: #### U GRUPO, UMAC #### Testing performed at [address] [address] Creatinine [Mass/Vol] 0.51 mg/dL Low 0.70-1.20 [facility] Comment on above: Performed By: #### U GRUPO, UMAC #### Testing performed at [address] [address] EST. GFR, 149 ml/min/1.73sq.m [facility] Comment on above: Performed By: #### U GRUPO, UMAC #### Testing performed at [address] [address] EST. GFR,Non 123 ml/min/1.73sq.m [facility] Comment on above: Performed By: #### U GRUPO, UMAC #### Testing performed at [address] [address] GFR Information Average GFR for 70+ years old = 75. Normal [facility] Comment on above: Result Comment: Rigging Foreman aviva Kidney disease, GFR = <60. Kidney failure, GFR = <15. The GFR estimate is not adjusted for extreme body surface area or acute process, nor has it been validated for women or ethnic groups other than and . Performed By: #### U GRUPO, UMAC #### Testing performed at [address] [address] Glucose [Mass/Vol] 106 mg/dL High 70-100 [facility] Comment on above: Result Comment: NORMAL <100 mg/dL PREDIABETES 101-126 mg/dL DIABETES 126 mg/dL or higher Performed By: #### U GRUPO, UMAC #### Testing performed at [address] [address] PHOSPHOROUS 2.6 MG/DL Normal 2.5-4.5 [facility] Comment on above: Performed By: #### U GRUPO, UMAC #### Testing performed at [address] [address] Potassium [Moles/Vol] 3.3 mmol/L Low 3.5-5.1 [facility] Comment on above: Performed By: #### U GRUPO, UMAC #### Testing performed at [address] [address] Sodium [Moles/Vol] 135 mmol/L Low 137-145 [facility] Comment on above: Performed By: #### U GRUPO, UMAC #### Testing performed at [address] [address] Urea nitrogen [Mass/Vol] 10 mg/dL Normal 7-20 [facility] Comment on above: Performed By: #### U [facility] #### Testing performed at [address] [address] SURGICAL PATHOLOGY REQUESTon 01-17-2024 Pathology report final diagnosis Narrative Surgical Final Report Patient Name: CUATE GOODMAN Med. Rec. #: [id number] Physician: ERIK HEREDIA Specimen(s) Received Left femoral head Clinical / Pre-Operative Diagnosis Osteoarthritis of left hip unspecified osteoarthritis type Post-Operative Diagnosis Not provided Surgical Procedure Arthroplasty hip total latera approach Diagnosis: Left femoral head, Excision: -Consistent with degenerative joint disease Electronically Signed lks/01/13/2024 Khoa Vieyra DO Gross Description: The specimen is received in formalin, and labeled left femoral head, Cuate Goodman and date of 1940. The specimen consists of a femoral head and neck measuring 5.5 x 5 x 5 cm with articular cartilage degeneration. Sectioning reveals unremarkable bone. Hip Hop Artist sections are submitted in one cassette and placed in decalcification solution prior to processing. Billing Fee Code(s) A: 42110, [address] [facility] XR FOOT RIGHT 2 VIEWSon XR FOOT RIGHT 2 VIEWS EXAM: XR FOOT RIGH T 2 VIEWS HISTORY: swelling, pain with ambulation. COMPARISON: None. TECHNIQUE: 2 views FINDINGS: There is severe soft tissue swelling which is fairly diffuse. There is no radiographic evidence of periostitis or cortical bone destruction. There is generalized osseous demineralization. There is a large plantar calcaneal spur. There is a mild hallux valgus deformity. There are no lytic or blastic bony lesions. There is a healed fracture of the fifth proximal phalanx. There is no evidence of acute fracture or dislocation. There is mild osteophytosis. IMPRESSION: 1. No radiographic evidence of acute osseous injury or osteomyelitis. 2. Severe diffuse soft tissue swelling. Large plantar spur. Mild DJD and hallux valgus with osseous demineralization. Normal [facility] XR Foot - right 2 Viewson IMPRESSION: 1. No radiographic evidence of acute osseous injury or osteomyelitis. 2. Severe diffuse soft tissue swelling. Large plantar spur. Mild DJD and hallux valgus with osseous demineralization. RADIOLOGY EXAM: XR FOOT RIGHT 2 VIEWS HISTORY: swelling, pain with ambulation. COMPARISON: None. TECHNIQUE: 2 views FINDINGS: There is severe soft tissue swelling which is fairly diffuse. There is no radiographic evidence of periostitis or cortical bone destruction. There is generalized osseous demineralization. There is a large plantar calcaneal spur. There is a mild hallux valgus deformity. There are no lytic or blastic bony lesions. There is a healed fracture of the fifth proximal phalanx. There is no evidence of acute fracture or dislocation. There is mild osteophytosis. RADIOLOGY Miguel Marin M D - 01/17/2024 EXAM: XR FOOT RIGHT 2 VIEWS HISTORY: swelling, pain with ambulation. COMPARISON: None. TECHNIQUE: 2 views FINDINGS: There is severe soft tissue swelling which is fairly diffuse. There is no radiographic evidence of periostitis or cortical bone destruction. There is generalized osseous demineralization. There is a large plantar calcaneal spur. There is a mild hallux valgus deformity. There are no lytic or blastic bony lesions. There is a healed fracture of the fifth proximal phalanx. There is no evidence of acute fracture or dislocation. There is mild osteophytosis. IMPRESSION IMPRESSION: 1. No radiographic evidence of acute osseous injury or osteomyelitis. 2. Severe diffuse soft tissue swelling. Large plantar spur. Mild DJD and hallux valgus with osseous demineralization. [facility] Radiology Study observation (narrative) [facility] XR Foot - right 2 ViewsOrder ed By: Miguel Marin on 01-17-2024 [facility] Work Phone: CBCon 01-14-2024 ABSOLUTE BAS 0.0 10*3/uL Normal 0.0-0.2 [facility] Comment on above: Performed By: #### U GRUPO, UMAC #### Testing performed at [facility] [address] [place] [address] ABSOLUTE EOS 0.1 10*3/uL Normal 0.0-0.7 [facility] Comment on above: Performed By: #### U GRUPO, UMAC #### Testing performed at [address] [place] [address] ABSOLUTE NEUTROPHIL COUNT 7.6 10*3/uL High 1.4-6.5 [facility] Comment on above: Performed By: #### U GRUPO, UMAC #### Testing performed at [address] [place] [address] Basophils/100 WBC (Bld) 0.3 % Normal 0.0-2.0 [facility] Comment on above: Performed By: #### U GRUPO, UMAC #### Testing performed at [address] [place] [address] DTYPE AUTO DIFF Normal [facility] Comment on above: Performed By: #### U GRUPO, UMAC #### Testing performed at [address] [address] Eosinophils/100 WBC (Bld) 0.5 % Normal 0.0-11.0 [facility] Comment on above: Performed By: #### U GRUPO, UMAC #### Testing performed at [address] [address] Lymphocytes (Bld) [#/Vol] 1.1 10*3/uL Low 1.2-3.4 [facility] Comment on above: Performed By: #### U GRUPO, UMAC #### Testing performed at [address] [place] [address] Lymphocytes/100 WBC (Bld) 11.0 % Low 20.0-55.0 [facility] Comment on above: Performed By: #### U GRUPO, UMAC #### Testing performed at [address] [place] [address] Monocytes (Bld) [#/Vol] 1.1 10*3/uL High 0.0-0.7 [facility] Comment on above: Performed By: #### U GRUPO, UMAC #### Testing performed at [address] [place] [address] Monocytes/100 WBC (Bld) 10.8 % High 0.0-10.0 [facility] Comment on above: Performed By: #### U GRUPO, UMAC #### Testing performed at [address] [address] Neutrophils/100 WBC (Bld) 77.4 % High 37.0-75.0 [facility] Comment on above: Performed By: #### U GRUPO, UMAC #### Testing performed at [address] [address] Erythrocyte distribution width (RBC) [Ratio] 14.6 % High 11.5-14.5 [facility] Comment on above: Performed By: #### U GRUPO, UMAC #### Testing performed at [address] [address] Hematocrit (Bld) [Volume fraction] 32.1 % Low 36.0-48.0 [facility] Comment on above: Performed By: #### U GRUPO, UMAC #### Testing performed at [address] [address] Hemoglobin (Bld) [Mass/Vol] 10.5 g/dL Low 12.0-16.0 [facility] Comment on above: Performed By: #### U GRUPO, UMAC #### Testing performed at [address] [address] MCH (RBC) [Entitic mass] 31.4 pg Normal 26.0-35.0 [facility] Comment on above: Performed By: #### U GRUPO, UMAC #### Testing performed at [address] [address] MCHC (RBC) [Mass/Vol] 32.8 g/dL Normal 27.0-37.0 [facility] Comment on above: Performed By: #### U GRUPO, UMAC #### Testing performed at [address] [address] MCV (RBC) [Entitic vol] 96.0 fL Normal 80.0-100.0 [facility] Comment on above: Performed By: #### U GRUPO, UMAC #### Testing performed at [address] [address] Platelet mean volume (Bld) [Entitic vol] 8.4 fL Normal 7.4-11.0 [facility] Comment on above: Performed By: #### U GRUPO, UMAC #### Testing performed at [address] [address] Platelets (Bld) [#/Vol] 226 10*3/uL Normal 130-400 [facility] Comment on above: Performed By: #### U GRUPO, UMAC #### Testing performed at [address] [address] RBC (Bld) [#/Vol] 3.35 10*6/uL Low 4.0-5.4 [facility] Comment on above: Performed By: #### U GURPO, UMAC #### Testing performed at [address] [address] WBC (Bld) [#/Vol] 9.9 10*3/uL Normal 3.6-11.0 [facility] Comment on above: Performed By: #### U GRUPO, UMAC #### Testing performed at [address] [address] CBC, EDIF, PLATELETon 2023 ABSOLUTE BASOPHIL COUNT 0.0 10*3/uL 0.0 - 0.2 10*3/uL [facility] Basophils/100 WBC (Bld) 0.3 % 0.0 - 2.0 % [facility] Differential cell count method Nom (Bld) AUTO DIFF % [facility] Eosinophils (Bld) [#/Vol] 0.1 10*3/uL 0.0 - 0.7 10*3/uL [facility] Eosinophils/100 WBC (Bld) 0.5 % 0.0 - 11.0 % [facility] Erythrocyte distribution width (RBC) [Ratio] 14.6 % High 11.5 - 14.5 % [facility] Hematocrit (Bld) [Volume fraction] 32.1 % Low 36.0 - 48.0 % [facility] Hemoglobin (Bld) [Mass/Vol] 10.5 g/dL Low [facility] Interpretation and review of laboratory results Abnormal [facility] Lymphocytes (Bld) [#/Vol] 1.1 10*3/uL Low 1.2 - 3.4 10*3/uL [facility] Lymphocytes/100 WBC (Bld) 11.0 % Low 20.0 - 55.0 % [facility] MCH (RBC) [Entitic mass] 31.4 pg 26.0 - 35.0 PG [facility] MCHC (RBC) [Mass/Vol] 32.8 g/dL [facility] MCV (RBC) [Entitic vol] 96.0 fL [facility] Monocytes (Bld) [#/Vol] 1.1 10*3/uL High 0.0 - 0.7 10*3/uL [facility] Monocytes/100 WBC (Bld) 10.8 % High 0.0 - 10.0 % [facility] Neutrophils (Bld) [#/Vol] 7.6 10*3/uL High 1.4 - 6.5 10*3/uL [facility] Neutrophils/100 WBC (Bld) 77.4 % High 37.0 - 75.0 % [facility] Platelet mean volume (Bld) [Entitic vol] 8.4 fL [facility] Platelets (Bld) [#/Vol] 226 10*3/uL 130 - 400 10*3/uL [facility] RBC (Bld) [#/Vol] 3.35 10*6/uL Low 4.0 - 5.4 10*6/uL [facility] WBC (Bld) [#/Vol] 9.9 10*3/uL 3.6 - 11.0 10*3/uL [facility] BASIC METABOLIC PANELon - Anion gap [Moles/Vol] 4 mmol/L MMOL/L [facility] Calcium [Mass/Vol] 9.0 mg/dL [facility] Chloride [Moles/Vol] 107 mmol/L [facility] Comment on above: Please note: Triglyc eride levels of 600mg/dL or higher may positively bias chloride results by approximately 2.1 mmol CO2 [Moles/Vol] 26 mmol/L [facility] Creatinine [Mass/Vol] 0.70 mg/dL [facility] GFR COMMENT Average GFR for 70+ years old = 75. [facility] Comment on above: Chronic Kidney disea se, GFR = <60. Kidney failure, GFR = <15. The GFR estimate is not adjusted for extreme body surface area or acute process, nor has it been validated for women or ethnic groups other than and . GFR/1.73 sq M.predicted among blacks MDRD (S/P/Bld) [Vol rate/Area] 103 mL/min/{1.73_m2} ml/min/1.73sq .m [facility] GFR/1.73 sq M.predicted among non-blacks MDRD (S/P/Bld) [Vol rate/Area] 85 mL/min/{1.73_m2} ml/min/1.73sq .m [facility] Glucose post fast [Mass/Vol] 164 mg/dL High [facility] Comment on above: NORMAL <100 mg/dL PREDIABETES 101-126 mg/dL DIABETES 126 mg/dL or higher Interpretation and review of laboratory results Abnormal [facility] Potassium [Moles/Vol] 4.2 mmol/L [facility] Sodium [Moles/Vol] 137 mmol/L [facility] Urea nitrogen [Mass/Vol] 19 mg/dL [facility] BMP FASTINGon 01-13-2024 Anion gap [Moles/Vol] 4 mmol/L Normal [facility] Comment on above: Performed By: #### A CBC, BMPF #### Testing performed at [address] [address] Calcium [Mass/Vol] 9.0 mg/dL Normal 8.4-10.2 [facility] Comment on above: Performed By: #### A CBC, BMPF #### Testing performed at [address] [address] Chloride [Moles/Vol] 107 mmol/L Normal 98-107 [facility] Comment on above: Result Comment: Shonda mattehws note: Triglyceride levels of 600mg/dL or higher may positively bias chloride results by approximately 2.1 mmol Performed By: #### A CBC, BMPF #### Testing performed at [address] [address] CO2 [Moles/Vol] 26 mmol/L Normal 22-30 [facility] Comment on above: Performed By: #### A CBC, BMPF #### Testing performed at [address] [address] Creatinine [Mass/Vol] 0.70 mg/dL Normal 0.70-1.20 [facility] Comment on above: Performed By: #### A CBC, BMPF #### Testing performed at [address] [address] EST. GFR, 103 ml/min/1.73sq.m [facility] Comment on above: Performed By: #### A CBC, BMPF #### Testing performed at [address] [address] EST. GFR,Non 85 ml/min/1.73sq.m [facility] Comment on above: Performed By: #### A CBC, BMPF #### Testing performed at [address] [address] GFR Information Average GFR for 70+ years old = 75. [facility] Comment on above: Result Comment: [employer]ging [employer]man aviva Kidney disease, GFR = <60. Kidney failure, GFR = <15. The GFR estimate is not adjusted for extreme body surface area or acute process, nor has it been validated for women or ethnic groups other than and . Performed By: #### A CBC, BMPF #### Testing performed at [address] [address] Glucose [Mass/Vol] 164 mg/dL High 70-100 [facility] Comment on above: Result Comment: NORMAL <100 mg/dL PREDIABETES 101-126 mg/dL DIABETES 126 mg/dL or higher Performed By: #### A CBC, BMPF #### Testing performed at [address] [address] Potassium [Moles/Vol] 4.2 mmol/L Normal 3.5-5.1 [facility] Comment on above: Performed By: #### A CBC, BMPF #### Testing performed at [address] [address] Sodium [Moles/Vol] 137 mmol/L Normal 137-145 [facility] Comment on above: Performed By: #### A CBC, BMPF #### Testing performed at [address] [address] Urea nitrogen [Mass/Vol] 19 mg/dL Normal 7-20 [facility] Comment on above: Performed By: #### A CBC, BMPF #### Testing performed at [address] [place] [address] CBCon 01-13-2024 ABSOLUTE BAS 0.0 10*3/uL Normal 0.0-0.2 [facility] Comment on above: Performed By: #### A CBC, BMPF #### Testing performed at [address] [place] [address] ABSOLUTE EOS 0.0 10*3/uL Normal 0.0-0.7 [facility] Comment on above: Performed By: #### A CBC, BMPF #### Testing performed at [address] [place] [address] ABSOLUTE NEUTROPHIL COUNT 8.6 10*3/uL High 1.4-6.5 [facility] Comment on above: Performed By: #### A CBC, BMPF #### Testing performed at [address] [place] [address] Basophils/100 WBC (Bld) 0.0 % Normal 0.0-2.0 [facility] Comment on above: Performed By: #### A CBC, BMPF #### Testing performed at [address] [place] [address] DTYPE AUTO DIFF Normal [facility] Comment on above: Performed By: #### A CBC, BMPF #### Testing performed at [address] [place] [address] Eosinophils/100 WBC (Bld) 0.0 % Normal 0.0-11.0 [facility] Comment on above: Performed By: #### A CBC, BMPF #### Testing performed at [address] [place] [address] Lymphocytes (Bld) [#/Vol] 0.6 10*3/uL Low 1.2-3.4 [facility] Comment on above: Performed By: #### A CBC, BMPF #### Testing performed at [address] [place] [address] Lymphocytes/100 WBC (Bld) 5.9 % Low 20.0-55.0 [facility] Comment on above: Performed By: #### A CBC, BMPF #### Testing performed at [address] [place] [address] Monocytes (Bld) [#/Vol] 0.8 10*3/uL High 0.0-0.7 [facility] Comment on above: Performed By: #### A CBC, BMPF #### Testing performed at [address] [address] Monocytes/100 WBC (Bld) 8.3 % Normal 0.0-10.0 [facility] Comment on above: Performed By: #### A CBC, BMPF #### Testing performed at [address] [address] Neutrophils/100 WBC (Bld) 85.8 % High 37.0-75.0 [facility] Comment on above: Performed By: #### A CBC, BMPF #### Testing performed at [address] [address] Erythrocyte distribution width (RBC) [Ratio] 14.5 % Normal 11.5-14.5 [facility] Comment on above: Performed By: #### A CBC, BMPF #### Testing performed at [address] [address] Hematocrit (Bld) [Volume fraction] 31.8 % Low 36.0-48.0 [facility] Comment on above: Performed By: #### A CBC, BMPF #### Testing performed at [address] [address] Hemoglobin (Bld) [Mass/Vol] 10.6 g/dL Low 12.0-16.0 [facility] Comment on above: Performed By: #### A CBC, BMPF #### Testing performed at [address] [address] MCH (RBC) [Entitic mass] 31.9 pg Normal 26.0-35.0 [facility] Comment on above: Performed By: #### A CBC, BMPF #### Testing performed at [address] [address] MCHC (RBC) [Mass/Vol] 33.2 g/dL Normal 27.0-37.0 [facility] Comment on above: Performed By: #### A CBC, BMPF #### Testing performed at [address] [place] [address] MCV (RBC) [Entitic vol] 95.9 fL Normal 80.0-100.0 [facility] Comment on above: Performed By: #### A CBC, BMPF #### Testing performed at [address] [address] Platelet mean volume (Bld) [Entitic vol] 8.1 fL Normal 7.4-11.0 [facility] Comment on above: Performed By: #### A CBC, BMPF #### Testing performed at [address] [address] Platelets (Bld) [#/Vol] 228 10*3/uL Normal 130-400 [facility] Comment on above: Performed By: #### A CBC, BMPF #### Testing performed at [address] [address] RBC (Bld) [#/Vol] 3.31 10*6/uL Low 4.0-5.4 [facility] Comment on above: Performed By: #### A CBC, BMPF #### Testing performed at [address] [address] WBC (Bld) [#/Vol] 10.0 10*3/uL Normal 3.6-11.0 [facility] Comment on above: Performed By: #### A CBC, BMPF #### Testing performed at [address] [address] CBC, EDIF, PLATELETon 2023 ABSOLUTE BASOPHIL COUNT 0.0 10*3/uL 0.0 - 0.2 10*3/uL [facility] Basophils/100 WBC (Bld) 0.0 % 0.0 - 2.0 % [facility] Differential cell count method Nom (Bld) AUTO DIFF % [facility] Eosinophils (Bld) [#/Vol] 0.0 10*3/uL 0.0 - 0.7 10*3/uL [facility] Eosinophils/100 WBC (Bld) 0.0 % 0.0 - 11.0 % [facility] Erythrocyte distribution width (RBC) [Ratio] 14.5 % 11.5 - 14.5 % [facility] Hematocrit (Bld) [Volume fraction] 31.8 % Low 36.0 - 48.0 % [facility] Hemoglobin (Bld) [Mass/Vol] 10.6 g/dL Low [facility] Interpretation and review of laboratory results Abnormal [facility] Lymphocytes (Bld) [#/Vol] 0.6 10*3/uL Low 1.2 - 3.4 10*3/uL [facility] Lymphocytes/100 WBC (Bld) 5.9 % Low 20.0 - 55.0 % [facility] MCH (RBC) [Entitic mass] 31.9 pg 26.0 - 35.0 PG [facility] MCHC (RBC) [Mass/Vol] 33.2 g/dL [facility] MCV (RBC) [Entitic vol] 95.9 fL [facility] Monocytes (Bld) [#/Vol] 0.8 10*3/uL High 0.0 - 0.7 10*3/uL [facility] Monocytes/100 WBC (Bld) 8.3 % 0.0 - 10.0 % [facility] Neutrophils (Bld) [#/Vol] 8.6 10*3/uL High 1.4 - 6.5 10*3/uL [facility] Neutrophils/100 WBC (Bld) 85.8 % High 37.0 - 75.0 % [facility] Platelet mean volume (Bld) [Entitic vol] 8.1 fL [facility] Platelets (Bld) [#/Vol] 228 10*3/uL 130 - 400 10*3/uL [facility] RBC (Bld) [#/Vol] 3.31 10*6/uL Low 4.0 - 5.4 10*6/uL [facility] WBC (Bld) [#/Vol] 10.0 10*3/uL 3.6 - 11.0 10*3/uL [facility] ECGOrdered By: Thom estevez on 01-13-2024 [facility] Work Phone: TROPONIN I, HIGH SENSITIVITY on 01-13-2024 Interpretation and review of laboratory results Abnormal [facility] TROPONIN I, HIGH SENSITIVITY 14 pg/mL High 0 - 12 pg/mL [facility] Comment on above: Indeterminant: >12 to 100 pg/mL female >20 to 100 pg/mL male Indicative of myocardial injury. Serial sampling is recommended, a change of greater than or equal to 20 pg/mL is indicative of acute coronary syndrome. [facility] TROPONIN I, HIGH SENSITIVITY 14 pg/mL High 0-12 [facility] Comment on above: Result Comment: Indeterminant: >12 to 100 pg/mL female >20 to 100 pg/mL male Indicative of myocardial injury. Serial sampling is recommended, a change of greater than or equal to 20 pg/mL is indicative of acute coronary syndrome. Performed By: #### U GRUPO, UMAC #### Testing performed at [address] [address] TROPONIN I, HIGH SENSITIVITY 10 pg/mL 0 - 12 pg/mL [facility] Comment on above: Indeterminant: >12 to 100 pg/mL female >20 to 100 pg/mL male Indicative of myocardial injury. Serial sampling is recommended, a change of greater than or equal to 20 pg/mL is indicative of acute coronary syndrome. [facility] TROPONIN I, HIGH SENSITIVITY 10 pg/mL Normal [address] [place] [address] Comment on above: Result Comment: Indeterminant: >12 to 100 pg/mL female >20 to 100 pg/mL male Indicative of myocardial injury. Serial sampling is recommended, a change of greater than or equal to 20 pg/mL is indicative of acute coronary syndrome. Performed By: #### T [facility] #### Testing performed at [address] [address] TROPONIN I, HIGH SENSITIVITY 9 pg/mL 0 - 12 pg/mL [facility] Comment on above: Indeterminant: >12 to 100 pg/mL female >20 to 100 pg/mL male Indicative of myocardial injury. Serial sampling is recommended, a change of greater than or equal to 20 pg/mL is indicative of acute coronary syndrome. [facility] TROPONIN I, HIGH SENSITIVITY 9 pg/mL Normal 0-12 [facility] Comment on above: Result Comment: Indeterminant: >12 to 100 pg/mL female >20 to 100 pg/mL male Indicative of myocardial injury. Serial sampling is recommended, a change of greater than or equal to 20 pg/mL is indicative of acute coronary syndrome. Performed By: #### U GRUPO, UMAC #### Testing performed at [address] [place] [address] XR PELVIS 1-2 VIEWSon 2023 XR PELVIS 1-2 VIEWS EXAM: XR PELVIS 1-2 VIEWS. HISTORY: ANGELIQUE COMPARISON: 12/01/2023. FINDINGS: Single view of the lower pelvis was performed. Right hip prosthesis appears similar to prior. There are interval postsurgical findings of left hip arthroplasty with cerclage wires surrounding the proximal femur. No displaced fracture or malalignment identified on this single image. Subcutaneous and intra-articular air is present. IMPRESSION: Postsurgical findings of left hip arthroplasty. Normal [facility] XR Pelvis 2 Viewson 01-13-20 IMPRESSION: Postsurgical findings of left hip arthroplasty. RADIOLOGY EXAM: XR PELVIS 1-2 VIEWS. HISTORY: ANGELIQUE COMPARISON: 12/01/2023. FINDINGS: Single view of the lower pelvis was performed. Right hip prosthesis appears similar to prior. There are interval postsurgical findings of left hip arthroplasty with cerclage wires surrounding the proximal femur. No displaced fracture or malalignment identified on this single image. Subcutaneous and intra-articular air is present. RADIOLOGY Eyad Aldridge MD - 01/13/2024 EXAM: XR PELVIS 1-2 VIEWS. HISTORY: ANGELIQUE COMPARISON: 12/01/2023. FINDINGS: Single view of the lower pelvis was performed. Right hip prosthesis appears similar to prior. There are interval postsurgical findings of left hip arthroplasty with cerclage wires surrounding the proximal femur. No displaced fracture or malalignment identified on this single image. Subcutaneous and intra-articular air is present. IMPRESSION IMPRESSION: Postsurgical findings of left hip arthroplasty. [facility] XR Pelvis 2 ViewsOrdered By: Eyad Aldridge on 01-13-2024 [facility] Work Phone: BASIC METABOLIC PANELon 12-18 Anion gap [Moles/Vol] 9 mmol/L MMOL/L [facility] Calcium [Mass/Vol] 9.1 mg/dL [facility] Chloride [Moles/Vol] 105 mmol/L [facility] Comment on above: Please note: Triglyc eride levels of 600mg/dL or higher may positively bias chloride results by approximately 2.1 mmol CO2 [Moles/Vol] 24 mmol/L [facility] Creatinine [Mass/Vol] 0.70 mg/dL [facility] GFR COMMENT Average GFR for 70+ years old = 75. [facility] Comment on above: Chronic Kidney disea se, GFR = <60. Kidney failure, GFR = <15. The GFR estimate is not adjusted for extreme body surface area or acute process, nor has it been validated for women or ethnic groups other than and . GFR/1.73 sq M.predicted among blacks MDRD (S/P/Bld) [Vol rate/Area] 103 mL/min/{1.73_m2} ml/min/1.73sq .m [facility] GFR/1.73 sq M.predicted among non-blacks MDRD (S/P/Bld) [Vol rate/Area] 85 mL/min/{1.73_m2} ml/min/1.73sq .m [facility] Glucose post fast [Mass/Vol] 179 mg/dL High [facility] Comment on above: NORMAL <100 mg/dL PREDIABETES 101-126 mg/dL DIABETES 126 mg/dL or higher Interpretation and review of laboratory results Abnormal [facility] Potassium [Moles/Vol] 4.0 mmol/L [facility] Sodium [Moles/Vol] 138 mmol/L [facility] Urea nitrogen [Mass/Vol] 16 mg/dL [facility] BMP FASTINGon 01-12-2024 Anion gap [Moles/Vol] 9 mmol/L Normal [facility] Comment on above: Performed By: #### U GRUPO, UMAC #### Testing performed at [address] [address] Calcium [Mass/Vol] 9.1 mg/dL Normal 8.4-10.2 [facility] Comment on above: Performed By: #### U GRUPO, UMAC #### Testing performed at [address] [address] Chloride [Moles/Vol] 105 mmol/L Normal 98-107 [facility] Comment on above: Result Comment: Plea se note: Triglyceride levels of 600mg/dL or higher may positively bias chloride results by approximately 2.1 mmol Performed By: #### U GRUPO, UMAC #### Testing performed at [address] [address] CO2 [Moles/Vol] 24 mmol/L Normal 22-30 [facility] Comment on above: Performed By: #### U GRUPO, UMAC #### Testing performed at [address] [address] Creatinine [Mass/Vol] 0.70 mg/dL Normal 0.70-1.20 [facility] Comment on above: Performed By: #### U GRUPO, UMAC #### Testing performed at [address] [address] EST. GFR, 103 ml/min/1.73sq.m [facility] Comment on above: Performed By: #### U GRUPO, UMAC #### Testing performed at [address] [address] EST. GFR,Non 85 ml/min/1.73sq.m [facility] Comment on above: Performed By: #### U GRUPO, UMAC #### Testing performed at [address] [address] GFR Information Average GFR for 70+ years old = 75. Normal [facility] Comment on above: Result Comment: Rigging Foreman aviva Kidney disease, GFR = <60. Kidney failure, GFR = <15. The GFR estimate is not adjusted for extreme body surface area or acute process, nor has it been validated for women or ethnic groups other than and . Performed By: #### U GRUPO, UMAC #### Testing performed at [address] [address] Glucose [Mass/Vol] 179 mg/dL High 70-100 [facility] Comment on above: Result Comment: NORMAL <100 mg/dL PREDIABETES 101-126 mg/dL DIABETES 126 mg/dL or higher Performed By: #### U GRUPO, UMAC #### Testing performed at [address] [address] Potassium [Moles/Vol] 4.0 mmol/L Normal 3.5-5.1 [facility] Comment on above: Performed By: #### U GRUPO, UMAC #### Testing performed at [address] [address] Sodium [Moles/Vol] 138 mmol/L Normal 137-145 [facility] Comment on above: Performed By: #### U GRUPO, UMAC #### Testing performed at [address] [address] Urea nitrogen [Mass/Vol] 16 mg/dL Normal 7-20 [facility] Comment on above: Performed By: #### U GRUPO, UMAC #### Testing performed at [address] [address] CBCon 01-12-2024 ABSOLUTE BAS 0.0 10*3/uL Normal 0.0-0.2 [facility] Comment on above: Performed By: #### U GRUPO, UMAC #### Testing performed at [address] [address] ABSOLUTE EOS 0.0 10*3/uL Normal 0.0-0.7 [facility] Comment on above: Performed By: #### U GRUPO, UMAC #### Testing performed at [address] [address] ABSOLUTE NEUTROPHIL COUNT 9.4 10*3/uL High 1.4-6.5 [facility] Comment on above: Performed By: #### U GRUPO, UMAC #### Testing performed at [address] [address] Basophils/100 WBC (Bld) 0.1 % Normal 0.0-2.0 [facility] Comment on above: Performed By: #### U GRUPO, UMAC #### Testing performed at [address] [address] DTYPE AUTO DIFF Normal [facility] Comment on above: Performed By: #### U GRUPO, UMAC #### Testing performed at [address] [address] Eosinophils/100 WBC (Bld) 0.0 % Normal 0.0-11.0 [facility] Comment on above: Performed By: #### U GRUPO, UMAC #### Testing performed at [address] [address] Lymphocytes (Bld) [#/Vol] 0.6 10*3/uL Low 1.2-3.4 [facility] Comment on above: Performed By: #### U GRUPO, UMAC #### Testing performed at [address] [address] Lymphocytes/100 WBC (Bld) 5.9 % Low 20.0-55.0 [facility] Comment on above: Performed By: #### U GRUPO, UMAC #### Testing performed at [address] [address] Monocytes (Bld) [#/Vol] 0.5 10*3/uL Normal 0.0-0.7 [facility] Comment on above: Performed By: #### U GRUPO, UMAC #### Testing performed at [address] [address] Monocytes/100 WBC (Bld) 4.5 % Normal 0.0-10.0 [facility] Comment on above: Performed By: #### U GRUPO, UMAC #### Testing performed at [address] [address] Neutrophils/100 WBC (Bld) 89.5 % High 37.0-75.0 [facility] Comment on above: Performed By: #### U GRUPO, UMAC #### Testing performed at [address] [address] Erythrocyte distribution width (RBC) [Ratio] 14.3 % Normal 11.5-14.5 [facility] Comment on above: Performed By: #### U GRUPO, UMAC #### Testing performed at [address] [address] Hematocrit (Bld) [Volume fraction] 33.3 % Low 36.0-48.0 [facility] Comment on above: Performed By: #### U GRUPO, UMAC #### Testing performed at [address] [address] Hemoglobin (Bld) [Mass/Vol] 10.9 g/dL Low 12.0-16.0 [facility] Comment on above: Performed By: #### U GRUPO, UMAC #### Testing performed at [address] [address] MCH (RBC) [Entitic mass] 31.4 pg Normal 26.0-35.0 [facility] Comment on above: Performed By: #### U GRUPO, UMAC #### Testing performed at [address] [address] MCHC (RBC) [Mass/Vol] 32.8 g/dL Normal 27.0-37.0 [facility] Comment on above: Performed By: #### U GRUPO, UMAC #### Testing performed at [address] [address] MCV (RBC) [Entitic vol] 95.7 fL Normal 80.0-100.0 [facility] Comment on above: Performed By: #### U GRUPO, UMAC #### Testing performed at [address] [address] Platelet mean volume (Bld) [Entitic vol] 8.2 fL Normal 7.4-11.0 [facility] Comment on above: Performed By: #### U GRUPO, UMAC #### Testing performed at [address] [address] Platelets (Bld) [#/Vol] 247 10*3/uL Normal 130-400 [facility] Comment on above: Performed By: #### U GRUPO, UMAC #### Testing performed at [address] [address] RBC (Bld) [#/Vol] 3.48 10*6/uL Low 4.0-5.4 [facility] Comment on above: Performed By: #### U GRUPO, UMAC #### Testing performed at [address] [address] WBC (Bld) [#/Vol] 10.5 10*3/uL Normal 3.6-11.0 [facility] Comment on above: Performed By: #### U GRUPO, UMAC #### Testing performed at [address] [address] CBC, EDIF, PLATELETon 2023 ABSOLUTE BASOPHIL COUNT 0.0 10*3/uL 0.0 - 0.2 10*3/uL [facility] Basophils/100 WBC (Bld) 0.1 % 0.0 - 2.0 % [facility] Differential cell count method Nom (Bld) AUTO DIFF % [facility] Eosinophils (Bld) [#/Vol] 0.0 10*3/uL 0.0 - 0.7 10*3/uL [facility] Eosinophils/100 WBC (Bld) 0.0 % 0.0 - 11.0 % [facility] Erythrocyte distribution width (RBC) [Ratio] 14.3 % 11.5 - 14.5 % [facility] Hematocrit (Bld) [Volume fraction] 33.3 % Low 36.0 - 48.0 % [facility] Hemoglobin (Bld) [Mass/Vol] 10.9 g/dL Low [facility] Interpretation and review of laboratory results Abnormal [facility] Lymphocytes (Bld) [#/Vol] 0.6 10*3/uL Low 1.2 - 3.4 10*3/uL [facility] Lymphocytes/100 WBC (Bld) 5.9 % Low 20.0 - 55.0 % [facility] MCH (RBC) [Entitic mass] 31.4 pg 26.0 - 35.0 PG [facility] MCHC (RBC) [Mass/Vol] 32.8 g/dL [facility] MCV (RBC) [Entitic vol] 95.7 fL [facility] Monocytes (Bld) [#/Vol] 0.5 10*3/uL 0.0 - 0.7 10*3/uL [facility] Monocytes/100 WBC (Bld) 4.5 % 0.0 - 10.0 % [facility] Neutrophils (Bld) [#/Vol] 9.4 10*3/uL High 1.4 - 6.5 10*3/uL [facility] Neutrophils/100 WBC (Bld) 89.5 % High 37.0 - 75.0 % [facility] Platelet mean volume (Bld) [Entitic vol] 8.2 fL [facility] Platelets (Bld) [#/Vol] 247 10*3/uL 130 - 400 10*3/uL [facility] RBC (Bld) [#/Vol] 3.48 10*6/uL Low 4.0 - 5.4 10*6/uL [facility] WBC (Bld) [#/Vol] 10.5 10*3/uL 3.6 - 11.0 10*3/uL [facility] GENERAL PROCEDUREOrdered By: Vj Alvarez on 01-11-2024 [facility] Work Phone: Radiology Study observation (narrative) [facility] Work Phone: PROTIMEon 01-11-2024 INR Coag (PPP) [Relative time] 1.09 {INR} Normal 0.85-1.10 [facility] Comment on above: Result Comment: 2.0-3.0 THERAPEUTIC RANGE 2.5-3.5 MECHANICAL VALVE RANGE Performed By: #### P T #### Testing performed at [address] [address] PT Coag (PPP) [Time] 14.2 s Normal 11.8-14.4 [facility] Comment on above: Performed By: #### P T #### Testing performed at [address] [address] PROTIME-INRon 01-11-2024 INR Coag (PPP) [Relative time] 1.09 {INR} 0.85 - 1.10 [facility] Comment on above: 2.0-3.0 THERAPEUTIC RANGE 2.5-3.5 MECHANICAL VALVE RANGE PT Coag (PPP) [Time] 14.2 s [facility] REPEAT ABO/RHon 01-11-2024 REPEAT ABO/RH Positive Normal [facility] Comment on above: Performed By: #### U [facility], U[facility] #### Testing performed at [address] [address] REPEAT ABO/RH (D) TYPINGon 0 01-11-2024 ABO and Rh group Nom (Bld ) Positive [facility] XR Pelvis 2 Viewson 01-11-20 Radiology Study observation (narrative) [facility] 36on 01-10-2024 36 Regarding echo from 12/29/2023: MD Amairani Corrales MA Patient echo is overall normal. Therefore she can proceed with surgery from cardiac point of view with necessary anesthesia. She is considered to be at low risk for perioperative cardiac events. Thank you Dr Kim Suarez faxed to Dr. Heredia's office. Normal [facility] Office Visiton 12-22-2023 Follow-up visit [id number] Cuate Goodman 1940 F Date Provider Department Center 12/22/2023 [id number]-VQMOUFCEFERINO QUIÑONEZ BH [facility] Family History Problem Relation Age of Onset Lung cancer Mother Heart disease Father Other Father Prostate cancer Father Family Status - Relation Status Age at Mother Father Level of Service:22725 MO OFFICE/OUTPATIENT NEW MODERATE MDM 45 MINUTES Normal [facility] URINE CULTUREon 12-18-2023 Bacteria identified Cx Nom (U) SPECIMEN DESCRIPTION URINE CLEAN CATCH UA DIPSTICK LEUKOCYTE POSITIVE * Result Note: NITRITE POSITIVE * COLONY COUNT >100,000 C/C/ML CULTURE KLEBSIELLA PNEUMONIAE * Result Note: Testing performed at [place] [address] * REPORT STATUS 12/18/2023 * Result Note: FINAL * ORGANISM KLEBSIELLA PNEUMONIAE * Result Note: KLEBSIELLA PNEUMONIAE * METHOD GRUPO AMPICILLIN >=32 RESISTANT AMPICILLIN/SULBACTAM 8 SUSCEPTIBLE CEFTRIAXONE <=1 SUSCEPTIBLE CEFAZOLIN <=4 SUSCEPTIBLE IMIPENEM <=0.25 SUSCEPTIBLE GENTAMICIN <=1 SUSCEPTIBLE TRIMETH-SULFA <=20 SUSCEPTIBLE AMOXICILLIN/CLAVULANIC A <=2 SUSCEPTIBLE NITROFURANTOIN 128 RESISTANT PIPERACILLIN/TAZOBACTA M 8 SUSCEPTIBLE LEVOFLOXACIN <=0.12 SUSCEPTIBLE ESBL NEGATIVE ERTAPENEM <=0.5 SUSCEPTIBLE CEFEPIME <=1 SUSCEPTIBLE CEFTAZIDIME <=1 SUSCEPTIBLE Normal [facility] Comment on above: Performed By: #### A URNC #### Testing performed at [facility] [address] [place] [address] Testing performed at [facility] [address] [place] [address] CBCon 12-16-2023 ABSOLUTE BAS 0.1 10*3/uL Normal 0.0-0.2 [facility] Comment on above: Performed By: #### U [facility], UMAC #### Testing performed at [address] [place] [address] ABSOLUTE EOS 0.1 10*3/uL Normal 0.0-0.7 [facility] Comment on above: Performed By: #### U [facility], UMAC #### Testing performed at [address] [place] [address] ABSOLUTE NEUTROPHIL COUNT 3.5 10*3/uL Normal 1.4-6.5 [facility] Comment on above: Performed By: #### U [facility], UMAC #### Testing performed at [address] [place] [address] Basophils/100 WBC (Bld) 0.9 % Normal 0.0-2.0 [facility] Comment on above: Performed By: #### U [facility], UMAC #### Testing performed at [address] [place] [address] DTYPE AUTO DIFF Normal [facility] Comment on above: Performed By: #### U [facility], UMAC #### Testing performed at [address] [place] [address] Eosinophils/100 WBC (Bld) 1.8 % Normal 0.0-11.0 [facility] Comment on above: Performed By: #### U [facility], UMAC #### Testing performed at [address] [address] Lymphocytes (Bld) [#/Vol] 1.4 10*3/uL Normal 1.2-3.4 [facility] Comment on above: Performed By: #### U [facility], UMAC #### Testing performed at [address] [place] [address] Lymphocytes/100 WBC (Bld) 25.0 % Normal 20.0-55.0 [facility] Comment on above: Performed By: #### U [facility], UMAC #### Testing performed at [address] [place] [address] Monocytes (Bld) [#/Vol] 0.5 10*3/uL Normal 0.0-0.7 [facility] Comment on above: Performed By: #### U [facility], UMAC #### Testing performed at [address] [place] [address] Monocytes/100 WBC (Bld) 9.1 % Normal 0.0-10.0 [facility] Comment on above: Performed By: #### U [facility], UMAC #### Testing performed at [address] [place] [address] Neutrophils/100 WBC (Bld) 63.2 % Normal 37.0-75.0 [facility] Comment on above: Performed By: #### U [facility], UMAC #### Testing performed at [address] [place] [address] Erythrocyte distribution width (RBC) [Ratio] 14.9 % High 11.5-14.5 [facility] Comment on above: Performed By: #### U [facility], UMAC #### Testing performed at [address] [place] [address] Hematocrit (Bld) [Volume fraction] 39.2 % Normal 36.0-48.0 [facility] Comment on above: Performed By: #### U [facility], UMAC #### Testing performed at [address] [place] [address] Hemoglobin (Bld) [Mass/Vol] 12.8 g/dL Normal 12.0-16.0 [facility] Comment on above: Performed By: #### U [facility], UMAC #### Testing performed at [address] [place] [address] MCH (RBC) [Entitic mass] 31.1 pg Normal 26.0-35.0 [facility] Comment on above: Performed By: #### U GRU[facility], UMAC #### Testing performed at [address] [place] [address] MCHC (RBC) [Mass/Vol] 32.6 g/dL Normal 27.0-37.0 [facility] Comment on above: Performed By: #### U GRUPO, UMAC #### Testing performed at [address] [place] [address] MCV (RBC) [Entitic vol] 95.4 fL Normal 80.0-100.0 [facility] Comment on above: Performed By: #### U GRU[facility], UMAC #### Testing performed at [address] [place] [address] Platelet mean volume (Bld) [Entitic vol] 8.8 fL Normal 7.4-11.0 [facility] Comment on above: Performed By: #### U GRUPO, UMAC #### Testing performed at [address] [place] [address] Platelets (Bld) [#/Vol] 298 10*3/uL Normal 130-400 [facility] Comment on above: Performed By: #### U GRUPO, UMAC #### Testing performed at [address] [place] [address] RBC (Bld) [#/Vol] 4.11 10*6/uL Normal 4.0-5.4 [facility] Comment on above: Performed By: #### U GRU[facility], UMAC #### Testing performed at [address] [address] WBC (Bld) [#/Vol] 5.6 10*3/uL Normal 3.6-11.0 [facility] Comment on above: Performed By: #### U [facility], UMAC #### Testing performed at [address] [place] [address] CMP FASTINGon 12-16-2023 A:G RATIO 1.3 RATIO Normal [facility] Comment on above: Performed By: #### U [facility], UMAC #### Testing performed at [address] [place] [address] ALBUMIN 4.0 G/dl Normal 3.5-5.0 [facility] Comment on above: Performed By: #### U [facility], UMAC #### Testing performed at [address] [place] [address] ALP [Catalytic activity/Vol] 89 U/L Normal 38-126 [facility] Comment on above: Performed By: #### U [facility], UMAC #### Testing performed at [address] [place] [address] ALT [Catalytic activity/Vol] 16 U/L Normal <35 [facility] Comment on above: Performed By: #### U GRU[facility], UMAC #### Testing performed at [address] [place] [address] AST [Catalytic activity/Vol] 25 U/L Normal 14-36 [facility] Comment on above: Performed By: #### U GRU[facility], UMAC #### Testing performed at [address] [address] Bilirubin [Mass/Vol] 0.3 mg/dL Normal 0.2-1.3 [facility] Comment on above: Performed By: #### U GRU[facility], UMAC #### Testing performed at [address] [address] Calcium [Mass/Vol] 9.9 mg/dL Normal 8.4-10.2 [facility] Comment on above: Performed By: #### U GRU[facility], UMAC #### Testing performed at [address] [address] Chloride [Moles/Vol] 107 mmol/L Normal 98-107 [facility] Comment on above: Result Comment: Shonda matthews note: Triglyceride levels of 600mg/dL or higher may positively bias chloride results by approximately 2.1 mmol Performed By: #### U [facility], UMAC #### Testing performed at [address] [address] CO2 [Moles/Vol] 28 mmol/L Normal 22-30 [facility] Comment on above: Performed By: #### U GRUPO, UMAC #### Testing performed at [address] [address] Creatinine [Mass/Vol] 0.80 mg/dL Normal 0.70-1.20 [facility] Comment on above: Performed By: #### U GRU[facility], UMAC #### Testing performed at [address] [address] EST. GFR, 89 ml/min/1.73sq.m [facility] Comment on above: Performed By: #### U GRUPO, UMAC #### Testing performed at [address] [place] [address] EST. GFR,Non 73 ml/min/1.73sq.m [facility] Comment on above: Performed By: #### U GRUPO, UMAC #### Testing performed at [address] [place] [address] GFR Information Average GFR for 70+ years old = 75. Normal [facility] Comment on above: Result Comment: [employer]ging [employer] aviva Kidney disease, GFR = <60. Kidney failure, GFR = <15. The GFR estimate is not adjusted for extreme body surface area or acute process, nor has it been validated for women or ethnic groups other than and . Performed By: #### U GRUPO, UMAC #### Testing performed at [address] [address] Glucose [Mass/Vol] 115 mg/dL High 70-100 [facility] Comment on above: Result Comment: NORMAL <100 mg/dL PREDIABETES 101-126 mg/dL DIABETES 126 mg/dL or higher Performed By: #### U GRU[facility], UMAC #### Testing performed at [address] [address] Potassium [Moles/Vol] 4.0 mmol/L Normal 3.5-5.1 [facility] Comment on above: Performed By: #### U GRUPO, UMAC #### Testing performed at [address] [address] Protein [Mass/Vol] 7.2 g/dL Normal 6.3-8.2 [facility] Comment on above: Performed By: #### U GRUPO, UMAC #### Testing performed at [address] [address] Sodium [Moles/Vol] 140 mmol/L Normal 137-145 [facility] Comment on above: Performed By: #### U GRUPO, UMAC #### Testing performed at [address] [address] Urea nitrogen [Mass/Vol] 19 mg/dL Normal 7-20 [facility] Comment on above: Performed By: #### U GRUPO, UMAC #### Testing performed at [address] [address] HEMOGLOBIN A1Con 12-16-2023 Glucose [Mass/Vol] 117 mg/dL Normal [facility] Comment on above: Performed By: #### H A1CT #### Testing performed at [address] [address] HbA1c (Bld) [Mass fraction] 5.7 % Normal 0-6 [facility] Comment on above: Result Comment: NORMAL <5.7% PREDIABETES 5.7-6.4% DIABETES 6.5% OR HIGHER Performed By: #### H A1CT #### Testing performed at [address] [address] MRSA SCREENon 12-16-2023 MRSA DNA SMILEY+probe Ql (Unsp spec) Negative Normal NEGATIVE [facility] Comment on above: Performed By: #### M RSAST #### Testing performed at [address] [address] STAPH AUREUS SCREEN Positive Abnormal NEGATIVE [facility] Comment on above: Result Comment: TEST ING PERFORMED BY PCR Performed By: #### M RSAST #### Testing performed at [address] [address] PROTIMEon 12-16-2023 INR Coag (PPP) [Relative time] 1.47 {INR} High 0.85-1.10 [facility] Comment on above: Result Comment: 2.0-3.0 THERAPEUTIC RANGE 2.5-3.5 MECHANICAL VALVE RANGE Performed By: #### U GRUPO, UMAC #### Testing performed at [address] [address] PT Coag (PPP) [Time] 17.9 s High 11.8-14.4 [facility] Comment on above: Performed By: #### U GRUPO, UMAC #### Testing performed at [address] [address] TYPE AND SCREEN CROSSMATCH C ONVERTIBLEon 12-16-2023 TYPE AND SCREEN CROSSMATCH CONVERTIBLE WORKUP EXPIRES 01/13/2024,2359 ABO/RH(D) O POSITIVE ANTIBODY SCREEN NEGATIVE ARM BAND NUMBER [id number] Normal [facility] Comment on above: Performed By: #### U GRUPO, UMAC #### Testing performed at [address] [address] URINE MACROSCOPICon 12-16-19 24 Bilirubin Ql (U) Negative Normal NEGATIVE [facility] Comment on above: Performed By: #### U GRUPO, UMAC #### Testing performed at [address] [address] Clarity (U) SLIGHTLY CLOUDY Abnormal CLEAR [facility] Comment on above: Performed By: #### U GRUPO, UMAC #### Testing performed at [address] [address] Color (U) YELLOW Normal YELLOW [facility] Comment on above: Performed By: #### U GRUPO, UMAC #### Testing performed at [address] [address] Glucose Ql (U) Negative Normal NEGATIVE [facility] Comment on above: Performed By: #### U GRUPO, UMAC #### Testing performed at [address] [address] pH (U) 5.5 [pH] Normal 5.0-7.0 [facility] Comment on above: Performed By: #### U GRUPO, UMAC #### Testing performed at [address] [address] Protein (U) [Mass/Vol] 30 mg/dL Abnormal NEGATIVE [facility] Comment on above: Performed By: #### U GRUPO, UMAC #### Testing performed at [address] [place] [address] URINE HEMOGLOBIN MODERATE Abnormal NEGATIVE [facility] Comment on above: Performed By: #### U GRUPO, UMAC #### Testing performed at [address] [place] [address] URINE KETONE Negative Normal NEGATIVE [facility] Comment on above: Performed By: #### U GRUPO, UMAC #### Testing performed at [address] [address] URINE LEUKOTEST SMALL Abnormal NEGATIVE [facility] Comment on above: Performed By: #### U GRUPO, UMAC #### Testing performed at [address] [address] URINE NITRATES Positive Abnormal NEGATIVE [facility] Comment on above: Performed By: #### U GRUPO, UMAC #### Testing performed at [address] [address] URINE SPEC GRAVITY 1.025 Normal 1.010-1.025 [facility] Comment on above: Performed By: #### U GRUPO, UMAC #### Testing performed at [address] [address] Urobilinogen Qn (U) 0.2 {Monique'U}/dL Normal 0.2-1.0 [facility] Comment on above: Performed By: #### U GRUPO, UMAC #### Testing performed at [address] [address] URINE MICROSCOPICon 12-16-19 24 BACTERIA 3+ Abnormal NEGATIVE [facility] Comment on above: Performed By: #### U GRUPO, UMAC #### Testing performed at [address] [address] CASTS NONE Normal [facility] Comment on above: Performed By: #### U GRUPO, UMAC #### Testing performed at [address] [address] CRYSTAL NONE Normal [facility] Comment on above: Performed By: #### U GRUPO, UMAC #### Testing performed at [address] [address] Epithelial cells LM Ql (Urine sed) 1 TO 5 Normal [facility] Comment on above: Performed By: #### U GRUPO, UMAC #### Testing performed at [address] [address] Mucus Ql (Urine sed) Negative Normal NEGATIVE [facility] Comment on above: Performed By: #### U GRUPO, UMAC #### Testing performed at [address] [address] URINE COMMENT REFLEX CULTURE PER ESTABLISHED CRITERIA. Normal [facility] Comment on above: Performed By: #### U GRUPO, UMAC #### Testing performed at [address] [address] URINE RBC'S 1 TO 5 Normal NEGATIVE [facility] Comment on above: Performed By: #### U GRUPO, UMAC #### Testing performed at [address] [address] URINE WBC'S TOO NUMEROUS TO COUNT Abnormal NEGATIVE [facility] Comment on above: Performed By: #### U GRUPO, UMAC #### Testing performed at [address] [address] CBC AND AUTO DIFFon 09-18-19 24 ABSOLUTE BASOPHIL 0.1 X10E9/L Normal 0.0-0.2 [facility] Comment on above: Performed By: #### C BCA, CMP, 48678-6, 09830-9, 3084-1, 3016- 3, 3024-7, 3051-0, 2284-8, 2132-03 #### [facility] ([id number]) [address], [address] [place] [address] ABSOLUTE NEUTROPHIL 4.0 X10E9/L Normal 1.5-6.6 [facility] Comment on above: Performed By: #### C BCA, CMP, 83969-2, 51938-8, 3084-1, 3016- 3, 3024-7, 3051-0, 2284-8, 2132-03 #### [facility] ([id number]) [address], [address] [place] [address] Basophils/100 WBC (Bld) 1.0 % Normal [facility] Comment on above: Performed By: #### C BCA, CMP, 18781-4, 61968-5, 3084-1, 3016- 3, 3024-7, 3051-0, 228-8, 2132-03 #### [facility] ([id number]) [address], [address] [place] [address] Eosinophils (Bld) [#/Vol] 0.1 10*3/uL Normal 0.0-0.4 [facility] Comment on above: Performed By: #### C BCA, CMP, 33688-2, 80696-7, 3084-1, 3016- 3, 3024-7, 3051-0, 2284-8, 2132-03 #### [facility] ([id number]) [address], [address] [place] [address] Eosinophils/100 WBC (Bld) 1.8 % Normal [facility] Comment on above: Performed By: #### C BCA, CMP, 39973-8, 21610-8, 3084-1, 3016- 3, 3024-7, 3051-0, 2284-8, 2132-03 #### [facility] ([id number]) [address], [address] [place] [address] Erythrocyte distribution width (RBC) [Ratio] 15.2 % High 11.5-15.0 [facility] Comment on above: Performed By: #### C BCA, CMP, 81778-9, 83026-0, 3084-1, 3016- 3, 3024-7, 3051-0, 2284-8, 2132-03 #### [facility] ([id number]) [address], [address] [place] [address] Hematocrit (Bld) [Volume fraction] 36.9 % Normal 35-47 [facility] Comment on above: Performed By: #### C BCA, CMP, 60226-1, 62474-3, 3084-1, 3016- 3, 3024-7, 3051-0, 2284-8, 2132-03 #### [facility] ([id number]) [address], [address] [place] [address] Hemoglobin (Bld) [Mass/Vol] 12.3 g/dL Normal 11.7-15.5 [facility] Comment on above: Performed By: #### C BCA, CMP, 53970-2, 71829-2, 3084-1, 3016- 3, 3024-7, 3051-0, 2284-8, 2132-03 #### [facility] ([id number]) [address], [address] [place] [address] Lymphocytes (Bld) [#/Vol] 1.5 10*3/uL Normal 1.0-3.5 [facility] Comment on above: Performed By: #### C BCA, CMP, 35762-8, 53124-6, 3084-1, 3016- 3, 3024-7, 3051-0, 2284-8, 2132-03 #### [facility] ([id number]) [address], [address] [place] [address] Lymphocytes/100 WBC (Bld) 23.4 % Normal [facility] Comment on above: Performed By: #### C BCA, CMP, 08065-2, 12723-4, 3084-1, 3016- 3, 3024-7, 3051-0, 2284-8, 2132-03 #### [facility] ([id number]) [address], [address] [place] [address] MCH (RBC) [Entitic mass] 30.8 pg Normal 27-34 [facility] Comment on above: Performed By: #### C BCA, CMP, 79750-3, 68869-2, 3084-1, 3016- 3, 3024-7, 3051-0, 2284-8, 2132-03 #### [facility] ([id number]) [address], [address] [place] [address] MCHC (RBC) [Mass/Vol] 33.3 g/dL Normal 32-36 [facility] Comment on above: Performed By: #### C BCA, CMP, 73771-8, 16767-9, 3084-1, 3016- 3, 3024-7, 3051-0, 2284-8, 2132-03 #### [facility] ([id number]) [address], [address] [place] [address] MCV (RBC) [Entitic vol] 93 fL Normal 80-100 [facility] Comment on above: Performed By: #### C BCA, CMP, 62808-9, 53044-4, 3084-1, 3016- 3, 3024-7, 3051-0, 2284-8, 2132-03 #### [facility] ([id number]) [address], [address] [place] [address] Monocytes (Bld) [#/Vol] 0.6 10*3/uL Normal 0-0.9 [facility] Comment on above: Performed By: #### C BCA, CMP, 95588-2, 98972-1, 3084-1, 3016- 3, 3024-7, 3051-0, 2284-8, 2132-03 #### [facility] ([id number]) [address], [address] [place] [address] Monocytes/100 WBC (Bld) 9.2 % Normal [facility] Comment on above: Performed By: #### C BCA, CMP, 31893-5, 15575-4, 3084-1, 3016- 3, 3024-7, 3051-0, 2284-8, 2132-03 #### [facility] ([id number]) [address], [address] [place] [address] Neutrophils/100 WBC (Bld) 64.6 % Normal [facility] Comment on above: Performed By: #### C BCA, CMP, 07115-0, 37171-7, 3084-1, 3016- 3, 3024-7, 3051-0, 2284-8, 2132-03 #### [facility] ([id number]) [address], [address] [place] [address] Platelet mean volume (Bld) [Entitic vol] 8.0 fL Normal 7-12 [facility] Comment on above: Performed By: #### C BCA, CMP, 91721-5, 87948-9, 3084-1, 3016- 3, 3024-7, 3051-0, 2284-8, 2132-03 #### [facility] ([id number]) [address], [address] [place] [address] Platelets (Bld) [#/Vol] 492 10*3/uL High 150-450 [facility] Comment on above: Performed By: #### C BCA, CMP, 40583-4, 80552-9, 3084-1, 3016- 3, 3024-7, 3051-0, 2284-8, 9 #### [facility] ([id number]) [address] [place] [address] RBC COUNT 3.99 X10E12/L Normal 3.80-5.20 [facility] [place] Comment on above: Performed By: #### C BCA, CMP, 81650-6, 70473-7, 3084-1, 3016- 3, 3024-7, 3051-0, 2284-8, 2132-03 #### [facility] ([id number]) [address], [address] [place] [address] WBC (Bld) [#/Vol] 6.2 10*3/uL Normal 4.0-11.0 [facility] Comment on above: Performed By: #### C BCA, CMP, 39370-8, 11532-2, 3084-1, 3016- 3, 3024-7, 3051-0, 2284-8, 2132-03 #### [facility] ([id number]) [address], [address] [place] [address] COMPREHENSIVE METABOLIC PANE Jarad 09-18-2023 Albumin [Mass/Vol] 3.8 g/dL Normal 3.2-5.3 [facility] Comment on above: Performed By: #### C BCA, CMP, 10991-9, 17511-1, 3084-1, 3016- 3, 3024-7, 3051-0, 2284-8, 2132-03 #### [facility] ([id number]) [address], [address] [place] [address] ALP [Catalytic activity/Vol] 92 U/L Normal 39-130 [facility] [place] Comment on above: Performed By: #### C BCA, CMP, 01641-5, 08987-9, 3084-1, 3016- 3, 3024-7, 3051-0, 2284-8, 2131-9 #### [facility] ([id number]) [address], [address] [place] [address] ALT [Catalytic activity/Vol] 9 U/L Normal 0-31 [facility] [place] Comment on above: Performed By: #### C BCA, CMP, 61296-2, 85742-3, 3084-1, 3016- 3, 3024-7, 3051-0, 2284-8, 2131-9 #### [facility] ([id number]) [address], [address] [place] [address] Anion gap [Moles/Vol] 9 mmol/L Normal 5-15 [facility] Comment on above: Performed By: #### C BCA, CMP, 88245-6, 25641-4, 3084-1, 3016- 3, 3024-7, 3051-0, 2284-8, 2132-03 #### [facility] ([id number]) [address], [address] [place] [address] AST [Catalytic activity/Vol] 16 U/L Normal 0-41 [facility] [place] Comment on above: Performed By: #### C BCA, CMP, 20954-0, 92532-2, 3084-1, 3016- 3, 3024-7, 3051-0, 2284-8, 2131-9 #### [facility] ([id number]) [address], [address] [place] [address] Bilirubin [Mass/Vol] 0.5 mg/dL Normal 0.3-1.2 [facility] Comment on above: Performed By: #### C BCA, CMP, 22506-6, 04599-5, 3084-1, 3016- 3, 3024-7, 3051-0, 2284-8, 2131-9 #### [facility] ([id number]) [address], [address] [place] [address] Calcium [Mass/Vol] 9.9 mg/dL Normal 8.5-10.5 [facility] Comment on above: Performed By: #### C BCA, CMP, 16504-1, 69480-6, 3084-1, 3016- 3, 3024-7, 3051-0, 2284-8, 2132-03 #### [facility] ([id number]) [address], [address] [place] [address] Chloride [Moles/Vol] 102 mmol/L Normal 98-109 [facility] Comment on above: Performed By: #### C BCA, CMP, 35782-4, 20406-7, 3084-1, 3016- 3, 3024-7, 3051-0, 2284-8, 2132-03 #### [facility] ([id number]) [address], [address] [place] [address] CO2 [Moles/Vol] 27 mmol/L Normal 22-32 [facility] [place] Comment on above: Performed By: #### C BCA, CMP, 80260-1, 61665-9, 3084-1, 3016- 3, 3024-7, 3051-0, 228-8, 2132-03 #### [facility] ([id number]) [address], [address] [place] [address] Creatinine [Mass/Vol] 0.75 mg/dL Normal 0.40-1.00 [facility] Comment on above: Result Comment: METH OD TRACEABLE TO IDMS STANDARD Performed By: #### C BCA, CMP, 57036-6, 99920-0, 3084-1, 3016-3, 3024-7, 3051-0, 2284-8, 2132-03 #### [facility] ([id number]) [address], [address] [place] [address] GFR/1.73 sq M.predicted among non-blacks MDRD (S/P/Bld) [Vol rate/Area] 80 mL/min/{1.73_m2} Normal >59 [facility] [place] Comment on above: Result Comment: Reported eGFR is based on the CKD-EPI 2020 equation that does not use a race coefficient. Performed By: #### C BCA, CMP, 05888-3, 84863-2, 3084-1, 3016-3, 3024-7, 3051-0, 2284-8, 9 #### [facility] ([id number]) [address], [address] [place] [address] Glucose [Mass/Vol] 98 mg/dL Normal 65-99 [facility] Comment on above: Performed By: #### C BCA, CMP, 81658-7, 59281-8, 3084-1, 3016- 3, 3024-7, 3051-0, 2284-8, 2132-03 #### [facility] ([id number]) [address], [address] [place] [address] Potassium [Moles/Vol] 4.4 mmol/L Normal 3.5-5.0 [facility] Comment on above: Performed By: #### C BCA, CMP, 79195-4, 32855-6, 3084-1, 3016- 3, 3024-7, 3051-0, 228-8, 2132-03 #### [facility] ([id number]) [address], [address] [place] [address] Protein [Mass/Vol] 7.5 g/dL Normal 6.0-8.0 [facility] Comment on above: Performed By: #### C BCA, CMP, 56248-5, 82950-9, 3084-1, 3016- 3, 3024-7, 3051-0, 2284-8, 2132-03 #### [facility] ([id number]) [address] [place] [address] Sodium [Moles/Vol] 138 mmol/L Normal 134-146 [facility] Comment on above: Performed By: #### C BCA, CMP, 59366-0, 77660-2, 3084-1, 3016- 3, 3024-7, 3051-0, 2284-8, 2132-03 #### [facility] ([id number]) [address], [address] [place] [address] Urea nitrogen [Mass/Vol] 21 mg/dL Normal 5-27 [facility] [place] Comment on above: Performed By: #### C BCA, CMP, 75562-4, 31614-9, 3084-1, 3016- 3, 3024-7, 3051-0, 2284-8, 2132-03 #### [facility] ([id number]) [address], [address] [place] [address] FREE T3on 09-18-2023 Free T3 [Mass/Vol] 3.02 pg/mL Normal 2.50-3.90 [facility] Comment on above: Performed By: #### C BCA, CMP, 19811-7, 96270-0, 3084-1, 3016- 3, 3024-7, 3051-0, 2284-8, 2132-03 #### [facility] ([id number]) [address], [address] [place] [address] FREE T4on 09-18-2023 Free T4 [Mass/Vol] 1.24 ng/dL Normal 0.61-1.60 [facility] Comment on above: Performed By: #### C BCA, CMP, 19365-8, 70400-8, 3084-1, 3016- 3, 3024-7, 3051-0, 2284-8, 2132-03 #### [facility] ([id number]) [address], [address] [place] [address] Folate [Mass/Vol]on 09-18-19 24 FOLIC ACID 16.5 ng/mL Normal >5.8 [facility] [place] Comment on above: Result Comment: NEW REFERENCE RANGE Performed By: #### C BCA, CMP, 01848-6, 63918-0, 3084-1, 3016-3, 3024-7, 3051-0, 2284-8, 2132-03 #### [facility] ([id number]) [address] [place] [address], [address] [place] [address] HGB A1C (GLYCO-HGB)on 2023 Glucose [Mass/Vol] 120 mg/dL Normal [facility] Comment on above: Performed By: #### C BCA, CMP, 07262-5, 62793-9, 3084-1, 3016- 3, 3024-7, 3051-0, 2284-8, 2132-03 #### [facility] ([id number]) [address] [place] [address], [address] [place] [address] HbA1c (Bld) [Mass fraction] 5.8 % High 4.4-5.6 [facility] [place] Comment on above: Result Comment: NOTE ADA Guidelines Result HgbA1c Normal : less than 5.7 % Prediabetes : 5.7 % to 6.4 % Diabetes : > 6.4 % Use with caution in patients with abnormal hemoglobin variants as the half-life of red blood cells and in vivo glycation rates are affected. Performed By: #### C BCA, CMP, 23172-3, 31471-8, 3084-1, 3016-3, 3024-7, 3051-0, 2283-8, 2132-03 #### [facility] ([id number]) [address] [place] [address], [address] [place] [address] Lipid 1996 panelon 4 Cholesterol [Mass/Vol] 157 mg/dL Normal 150-200 [facility] [place] Comment on above: Performed By: #### C BCA, CMP, 35267-5, 30173-1, 3084-1, 3016- 3, 3024-7, 3051-0, 2284-8, 2132-03 #### [facility] ([id number]) [address] [place] [address], [address] [place] [address] Cholesterol in HDL [Mass/Vol] 57 mg/dL Normal >39 [facility] [place] Comment on above: Result Comment: HDL <40 mg/dL - High Risk HDL > or = 40mg/dL- Desirable HDL >60 mg/dL - Negative Risk Performed By: #### C RIRI, CMP, 92838-0, 76478-8, 3084-1, 3016-3, 3024-7, 3051-0, 2284-8, 2132-03 #### [facility] ([id number]) [address], [address] [place] [address] Cholesterol in LDL [Mass/Vol] 79 mg/dL Normal <130 [facility] [place] Comment on above: Result Comment: LDL <100 mg/dL - Desirable LDL >160 mg/dL - High Risk Performed By: #### Damian MENEZES, CMP, 57765-0, 65576-4, 3084-1, 3016-3, 3024-7, 3051-0, 2284-8, 2132-03 #### [facility] ([id number]) [address], [address] [place] [address] Cholesterol in VLDL [Mass/Vol] 21 mg/dL Normal 0-30 [facility] [place] Comment on above: Performed By: ###Jake Salgado BCA, CMP, 85010-0, 67508-6, 3084-1, 3016- 3, 3024-7, 3051-0, 2284-8, 9 #### [facility] ([id number]) [address], [address] [place] [address] CHOLESTEROL:HDL 2.8 Normal 1.0-5.0 [facility] [place] Comment on above: Performed By: #### C BCA, CMP, 38927-4, 87018-9, 3084-1, 3016- 3, 3024-7, 3051-0, 2284-8, 2132-03 #### [facility] ([id number]) [address], [address] [place] [address] Triglyceride [Mass/Vol] 104 mg/dL Normal 27-150 [facility] [place] Comment on above: Performed By: #### C BCA, CMP, 82794-0, 02078-4, 3084-1, 3016- 3, 3024-7, 3051-0, 2284-8, 2132-03 #### [facility] ([id number]) [address], [address] [place] [address] MAGNESIUMon 09-18-2023 Magnesium [Mass/Vol] 1.7 mg/dL Low 1.8-2.6 [facility] Comment on above: Performed By: #### C BCA, CMP, 47762-6, 84808-9, 3084-1, 3016- 3, 3024-7, 3051-0, 2283-8, 2132-03 #### [facility] ([id number]) [address], [address] [place] [address] TSH Qnon 09-18-2023 TSH 2.26 uIU/mL Normal 0.49-4.67 [facility] [place] Comment on above: Performed By: #### C BCA, CMP, 48355-5, 83527-3, 3084-1, 3016- 3, 3024-7, 3051-0, 228-8, 2132-03 #### [facility] ([id number]) [address], [address] [place] [address] URIC ACIDon 09-18-2023 Urate [Mass/Vol] 5.8 mg/dL Normal 2.6-7.2 [facility] Comment on above: Performed By: #### C BCA, CMP, 15190-3, 79100-5, 3084-1, 3016- 3, 3024-7, 3051-0, 2284-8, 2132-03 #### [facility] ([id number]) [address], [address] [place] [address] VITAMIN B12on 09-18-2023 Cobalamin (Vitamin B12) [Mass/Vol] pg/mL High 180-914 [facility] [place] Comment on above: Performed By: #### C BCA, CMP, 54750-0, 47819-3, 3084-1, 3016- 3, 3024-7, 3051-0, 4-8, 2132-03 #### [facility] ([id number]) [address] [address] [address], [address] [place] [address] XR KNEE LT 3 VWSon 4 XR KNEE LT 3 VWS XR KNEE LT 3 VWS CLINICAL INFORMATION: Chronic pain of left knee TECHNIQUE: XR KNEE LT 3 VWS 3 views left knee were obtained. Patient status post total knee arthroplasty. Hardware appears intact. Alignment is anatomic. Osseous structures appear osteopenic. IMPRESSION: Satisfactory postoperative knee. Finalized by Parag Marquis MD on 09/18/2023 12:15 PM Normal [facility] [place] CBC AUTO DIFFon 11-11-2022 BASO # 0.0 103/ul Normal 0.0-0.1 [facility] Comment on above: Performed By: #### U BRENT #### [facility] [address] [place] [address] Dr. Brandi Abarca Basophils/100 WBC (Bld) 0.5 % Normal 0.2-2.0 [facility] Comment on above: Performed By: #### U BRENT #### [facility] [address] [place] [address] Dr. Brandi Abarca EO # 0.2 103/ul Normal 0.0-0.7 [facility] Comment on above: Performed By: #### U BRENT #### [facility] [address] [place] [address] Dr. Brandi Abarca Eosinophils/100 WBC (Bld) 3.0 % Normal 0.9-7.0 [facility] Comment on above: Performed By: #### U BRENT #### [facility] [address] [place] [address] Dr. Brandi Abarca Erythrocyte distribution width (RBC) [Ratio] 13.6 % Normal 11.0-15.0 [facility] Comment on above: Performed By: #### U BRENT #### [facility] [address] [place] [address] Dr. Brandi Abarca Hematocrit (Bld) [Volume fraction] 34.4 % Critically low 36.0-48.0 [facility] Comment on above: Performed By: #### U BRENT #### [facility] [address] [place] [address] Dr. Brandi Abarca Hemoglobin (Bld) [Mass/Vol] 10.6 g/dL Critically low 12.0-16.0 [facility] Comment on above: Performed By: #### U BRENT #### [facility] [address] [place] [address] Dr. Brandi Abarca IG # 0.02 10e3/ul Normal 0.00-0.03 [facility] Comment on above: Performed By: #### U BRENT #### [facility] [address] [place] [address] Dr. Brandi Abarca IG % 0.3 % Normal 0.0-0.5 [facility] Comment on above: Performed By: #### U BRENT #### [facility] [address] [place] [address] Dr. Brandi Abarca LYMPH # 1.2 103/ul Normal 1.2-3.8 [facility] Comment on above: Performed By: #### U BRENT #### [facility] [address] [place] [address] Dr. Brandi Abarca Lymphocytes/100 WBC (Bld) 20.4 % Critically low 20.5-60.0 [facility] Comment on above: Performed By: #### U BRENT #### [facility] [address] [place] [address] Dr. Brandi Abarca MANUAL DIFF REQ NO Normal [facility] Comment on above: Performed By: #### U BRENT #### [facility] [address] [place] [address] Dr. Brandi Abarca MCH (RBC) [Entitic mass] 30.5 pg Normal 26.7-34.0 [facility] Comment on above: Performed By: #### U BRENT #### [facility] [address] [place] [address] Dr. Brandi Abarca MCHC (RBC) [Mass/Vol] 30.8 g/dL Normal 29.9-35.2 [facility] Comment on above: Performed By: #### U BRENT #### [facility] [address] [place] [address] Dr. Brandi Abarca MCV (RBC) [Entitic vol] 99.1 fL Critically high 81.0-99.0 [facility] Comment on above: Performed By: #### U BRENT #### [facility] [address] [place] [address] Dr. Brandi Abarca MONO # 0.7 103/ul Normal 0.3-0.8 [facility] Comment on above: Performed By: #### U BRENT #### [facility] [address] [place] [address] Dr. Brandi Abarca Monocytes/100 WBC (Bld) 12.0 % Normal 1.7-12.0 [facility] Comment on above: Performed By: #### U BRENT #### [facility] [address] [place] [address] Dr. Brandi Abarca NEUT # 3.8 103/ul Normal 1.4-6.5 [facility] Comment on above: Performed By: #### U BRENT #### [facility] [address] [place] [address] Dr. Brandi Abarca Neutrophils/100 WBC (Bld) 63.8 % Normal 43.0-75.0 [facility] Comment on above: Performed By: #### U BRENT #### [facility] [address] [place] [address] Dr. Brandi Abarca Platelet mean volume (Bld) [Entitic vol] 11.5 fL Normal 9.5-13.5 [facility] Comment on above: Performed By: #### U BRENT #### [facility] [address] [place] [address] Dr. Brandi Abarca PLT 212 103/ul Normal 150-450 [facility] Comment on above: Performed By: #### U BRENT #### [facility] [address] [address] [address] Brandi Abarca RBC 3.47 106/ul Critically low 4.20-5.40 [facility] Comment on above: Performed By: #### U BRENT #### [facility] [address] [place] [address] Dr. Brandi Abarca WBC 5.9 103/ul Normal 4.0-11.0 [facility] Comment on above: Performed By: #### U BRENT #### [facility] [address] [place] [address] Dr. Brandi Abarca GLYCOHEMOGLOBIN A1Con 2022 ADA RECOMMENDATION SEE BELOW Normal [facility] Comment on above: Result Comment: ADA RECOMMENDED LIMIT 4.0 - 6.0 ADA THERAPEUTIC TARGET < 7.0 ACTION SUGGESTED > 7.0 Performed By: #### A 1C #### [facility] [address] [place] [address] Dr. Brandi Abarca Glucose [Mass/Vol] 114 mg/dL Normal [facility] Comment on above: Performed By: #### A 1C #### [facility] [address] [place] [address] Dr. Brandi Abarca HbA1c (Bld) [Mass fraction] 5.6 % Normal 4.5-6.2 [facility] Comment on above: Performed By: #### A 1C #### [facility] [address] [place] [address] Dr. Brandi Abarca MAGNESIUMon 11-11-2022 Magnesium [Mass/Vol] 1.6 mg/dL Critically low 1.8-2.4 [facility] Comment on above: Performed By: #### U BRENT #### [facility] [address] [place], [place] [id number] Dr. Brandi Abarca PROF 14(COMP METB)on 023 Albumin [Mass/Vol] 2.4 g/dL Critically low 3.4-5.0 [facility] Comment on above: Performed By: #### U BRENT #### [facility] [address] [place] [address] Dr. Brandi Abarca Albumin/Globulin [Mass ratio] 0.6 {ratio} Normal [facility] Comment on above: Performed By: #### U BRENT #### [facility] [address] [place] [address] Dr. Brandi Abarca ALP [Catalytic activity/Vol] 82 U/L Normal 46-116 [facility] Comment on above: Performed By: #### U BRENT #### [facility] [address] [place] [address] Dr. Brandi Abarca ALT [Catalytic activity/Vol] 14 U/L Normal 14-59 [facility] Comment on above: Performed By: #### U BRENT #### [facility] [address] [place] [address] Dr. rBandi Abarca Anion gap [Moles/Vol] 9.6 mmol/L Normal [facility] Comment on above: Performed By: #### U BRENT #### [facility] [address] [place] [address] Dr. Brandi Abarca AST [Catalytic activity/Vol] 14 U/L Critically low 15-37 [facility] Comment on above: Performed By: #### U BRENT #### [facility] [address] [place] [address] Dr. Brandi Abarca Bilirubin [Mass/Vol] 0.2 mg/dL Normal 0.2-1.0 [facility] Comment on above: Performed By: #### U BRENT #### [facility] [address] [place] [address] Dr. Brandi Abarca Calcium [Mass/Vol] 8.6 mg/dL Normal 8.5-10.1 [facility] Comment on above: Performed By: #### U BRENT #### [facility] [address] [place] [address] Dr. Brandi Abarca Chloride [Moles/Vol] 103 mmol/L Normal 98-107 [facility] Comment on above: Performed By: #### U BRENT #### [facility] [address] [address] [address] Brandi Abarca CO2 [Moles/Vol] 29.6 mmol/L Normal 21.0-32.0 [facility] Comment on above: Performed By: #### U BRENT #### [facility] [address] [address] [address] Brandi Abarca Creatinine [Mass/Vol] 0.90 mg/dL Normal 0.55-1.02 [facility] Comment on above: Performed By: #### U BRENT #### [facility] [address] [place] [address] Dr. Brandi Abarca EGFR-AF GIBRALTARIAN >60 Normal >=60 [facility] Comment on above: Performed By: #### U BRENT #### [facility] [address] [address] [address] Brandi Abarca EGFR-NON AF GIBRALTARIAN 60 mL/min/1.73m2 Normal >=60 [facility] Comment on above: Performed By: #### U BRENT #### [facility] [address] [place] [address] Dr. Brandi Abarca Globulin (S) [Mass/Vol] 3.9 g/dL Normal [facility] Comment on above: Performed By: #### U BRENT #### [facility] [address] [address] [address] Brandi Abarca Glucose [Mass/Vol] 113 mg/dL Critically high 74-106 [facility] Comment on above: Performed By: #### U BRENT #### [facility] [address] [address] [address] Brandi Abarca Potassium [Moles/Vol] 4.2 mmol/L Normal 3.5-5.1 [facility] Comment on above: Performed By: #### U BRENT #### [facility] [address] [address] [address] Brandi Abarca Protein [Mass/Vol] 6.3 g/dL Critically low 6.4-8.2 [facility] Comment on above: Performed By: #### U BRENT #### [facility] [address] [place] [address] Dr. Brandi Abarca Sodium [Moles/Vol] 138 mmol/L Normal 136-145 [facility] Comment on above: Performed By: #### U BRENT #### [facility] [address] [place] [address] Dr. Brnadi Abarca Urea nitrogen [Mass/Vol] 14.0 mg/dL Normal 7.0-18.0 [facility] Comment on above: Performed By: #### U BRENT #### [facility] [address] [place] [address] Dr. Brandi Abarca Urea nitrogen/Creatinine [Mass ratio] 15.6 mg/mg Normal [facility] Comment on above: Performed By: #### U BRENT #### [facility] [address] [place] [address] Dr. Brandi Abarca CBC AUTO DIFFon 11-10-2022 BASO # 0.0 103/ul Normal 0.0-0.1 [facility] Comment on above: Performed By: #### A 1C #### [facility] [address] [place] [address] Dr. Brandi Abarca Basophils/100 WBC (Bld) 0.3 % Normal 0.2-2.0 [facility] Comment on above: Performed By: #### A 1C #### [facility] [address] [place] [address] Dr. Brandi Abarca EO # 0.0 103/ul Normal 0.0-0.7 [facility] Comment on above: Performed By: #### A 1C #### [facility] [address] [place] [address] Dr. Brandi Abarca Eosinophils/100 WBC (Bld) 0.3 % Critically low 0.9-7.0 [facility] Comment on above: Performed By: #### A 1C #### [facility] [address] [place] [address] Dr. Brandi Abarca Erythrocyte distribution width (RBC) [Ratio] 13.7 % Normal 11.0-15.0 [facility] Comment on above: Performed By: #### A 1C #### [facility] [address] [place] [address] Dr. Brandi Abarca Hematocrit (Bld) [Volume fraction] 36.3 % Normal 36.0-48.0 [facility] Comment on above: Performed By: #### A 1C #### [facility] [address] [place] [address] Dr. Brandi Abarca Hemoglobin (Bld) [Mass/Vol] 11.3 g/dL Critically low 12.0-16.0 [facility] Comment on above: Performed By: #### A 1C #### [facility] [address] [place] [address] Dr. Brandi Abarca IG # 0.03 10e3/ul Normal 0.00-0.03 [facility] Comment on above: Performed By: #### A 1C #### [facility] [address] [place] [address] Dr. Brandi Abarca IG % 0.4 % Normal 0.0-0.5 [facility] Comment on above: Performed By: #### A 1C #### [facility] [address] [place] [address] Dr. Brandi Abarca LYMPH # 1.1 103/ul Critically low 1.2-3.8 [facility] Comment on above: Performed By: #### A 1C #### [facility] [address] [place] [address] Dr. Brandi Abarca Lymphocytes/100 WBC (Bld) 15.1 % Critically low 20.5-60.0 [facility] Comment on above: Performed By: #### A 1C #### [facility] [address] [place] [address] Dr. Brandi Abarca MANUAL DIFF REQ NO Normal [facility] Comment on above: Performed By: #### A 1C #### [facility] [address] [place] [address] Dr. Brandi Abarca MCH (RBC) [Entitic mass] 30.6 pg Normal 26.7-34.0 [facility] Comment on above: Performed By: #### A 1C #### [facility] [address] [address] [address] Brandi Abarca MCHC (RBC) [Mass/Vol] 31.1 g/dL Normal 29.9-35.2 [facility] Comment on above: Performed By: #### A 1C #### [facility] [address] [address] [address] Brandi Abarca MCV (RBC) [Entitic vol] 98.4 fL Normal 81.0-99.0 [facility] Comment on above: Performed By: #### A 1C #### [facility] [address] [address] [address] Brandi Abarca MONO # 0.9 103/ul Critically high 0.3-0.8 [facility] Comment on above: Performed By: #### A 1C #### [facility] [address] [address] [address] Brandi Abarca Monocytes/100 WBC (Bld) 11.6 % Normal 1.7-12.0 [facility] Comment on above: Performed By: #### A 1C #### [facility] [address] [place] [address] Dr. Brandi Abarca NEUT # 5.5 103/ul Normal 1.4-6.5 [facility] Comment on above: Performed By: #### A 1C #### [facility] [address] [address] [address] Brandi Abarca Neutrophils/100 WBC (Bld) 72.3 % Normal 43.0-75.0 [facility] Comment on above: Performed By: #### A 1C #### [facility] [address] [address] [address] Brandi Abarca Platelet mean volume (Bld) [Entitic vol] 9.8 fL Normal 9.5-13.5 [facility] Comment on above: Performed By: #### A 1C #### [facility] [address] [address] [address] Brandi Abarca PLT 211 103/ul Normal 150-450 [facility] Comment on above: Performed By: #### A 1C #### [facility] [address] [place], [place] [address] Dr. Brandi Abarca RBC 3.69 106/ul Critically low 4.20-5.40 [facility] Comment on above: Performed By: #### A 1C #### [facility] [address] [place], [place] [address] Dr. Brandi Abarca WBC 7.5 103/ul Normal 4.0-11.0 [facility] Comment on above: Performed By: #### A 1C #### [facility] [address] [place], [place] [address] Dr. Brandi Abarca ECHOCARDIO M/2D COMPLETEon 0 11-10-2022 ECHOCARDIO M/2D COMPLETE Patient: CUATE GOODMAN Exam Date: 11/10/2022 : 1940 Gender:F Ordering : RIYA POSADAS . Admission #: [id number] Family : Order #: [id number] CLICK HERE TO VIEW EXAM ECHOCARDIOGRAM REPORT PROCEDURE: CARDIO PULMONARY ECHOCARDIO M/2D COMP INDICATIONS: Shortness of breath, Pulmonary embolism COMPARISON: None. DESCRIPTION: COMPLETE ECHOCARDIOGRAM Real-time transthoracic echocardiography with 2D, M-mode, spectral and color flow Doppler performed. QUALITY: Technical quality was adequate. LEFT VENTRICLE: Normal chamber size. Thickened septal wall. LV EF: Global left ventricular systolic function is lower normal limits; visually estimated ejection fraction is 50-55%. Abnormal septal motion; may be related to underlying bundle branch block. DIASTOLIC: Diastolic function is indeterminate. ATRIAL SEPTUM: Inadequately seen. LEFT ATRIUM: Normal chamber size. RIGHT ATRIUM: Normal chamber size. RIGHT VENTRICLE: The right ventricle appears enlarged. Normal right ventricular systolic function. TRICUSPID VALVE: Normal mobility and thickness. No stenosis with mild regurgitation. Moderate pulmonary hypertension. RVSP 45mmHg MITRAL VALVE: Normal mobility and thickness. No mitral valve prolapse. No evidence of mitral valve stenosis. There is no mitral annular calcification. Mild mitral regurgitation. AORTIC VALVE: Normal trileaflet appearance. Thickened aortic valve. Normal leaflet mobility. No evidence of aortic valve stenosis. No aortic regurgitation. AORTIC ROOT: Normal diameter and appearance. Dilatation of the ascending aorta measuring 4.2cm. PULMONIC VALVE: Normal thickness and mobility. No stenosis. Trivial regurgitation. PERICARDIUM: No evidence of pericardial effusion. IVC: Mild dilatation measuring 2.3cm with no collapse. CONCLUSION: Global left ventricular systolic function is lower normal limits. Visually estimated ejection fraction is 50 to 55%. Abnormal septal motion. Diastolic function is indeterminate. The right ventricle appears enlarged with preserved systolic function. Mild tricuspid regurgitation. Moderately elevated right-sided pressures. Mild mitral regurgitation. The ascending aorta is mildly dilated. Adult Echocardiography Procedure Report Left Ventricle LVEDD (3.7 - 5.6 cm): 5.31 cm LVESD (2.2 - 4.0 cm): 4.31 cm LVIVS thickness (0.6 - 1.2 cm): 1.39 cm LVPW thickness (0.5 - 1.0 cm): 1.05 cm e': 0.07 m/s E - e': 12.33 LVOT Max Gradient: 3.08 mm[Hg] Peak Velocity (LVOT): 0.88 m/s Mean Velocity (LVOT): 0.57 m/s LVOT Diameter 2.15 cm Left Atrium LA Volume Index (2D A2C): 111.15 ml, 111.15 ml Left Atrium Systolic Dimension: 3.55 cm Mitral Valve MV E to A Ratio: 0.90 Mitral Valve A-Wave Peak Velocity: 0.93 m/s Mitral Valve E-Wave Peak Velocity: 0.84 m/s Right Ventricle RV Internal Diastolic Dimension: 3.49 cm Aorta AO Root Diam: 3.53 cm Ascending Ao Diam: 4.21 cm Aortic Valve AoV Area (Peak Bill): 1.89 cm2, 1.82 cm2 AoV Area (VTI): 1.87 cm2, 1.89 cm2 Peak Velocity(Antegrade Flow): 1.75 m/s, 1.62 m/s Peak Gradient(Antegrade Flow): 12.28 mm[Hg], 10.55 mm[Hg] Mean Velocity(Antegrade Flow): 1.25 m/s, 1.21 m/s Mean Gradient(Antegrade Flow): 7.03 mm[Hg], 6.58 mm[Hg] Velocity Time Integral: 33.51 cm, 34.39 cm Tricuspid Valve Peak Velocity (Regurgitant Flow): 2.75 m/s, 2.66 m/s Peak Velocity: 0.59 m/s Pulmonic Valve Mean Gradient: 2.33 mm[Hg], 3.43 mm[Hg] Mean Velocity: 0.71 m/s, 0.89 m/s Peak Velocity: 1.01 m/s, 1.29 m/s Peak Gradient: 4.07 mm[Hg], 6.62 mm[Hg] Right Atrium Right Atrium Systolic Pressure: 43.93 ml, 43.93 ml Dictated by: Tuan Moore M.D. on 11/11/2022 at 09:55 Approved by: Tuan Moore M.D. on 11/11/2022 at 10:13 Normal [facility] GLYCOHEMOGLOBIN A1Con 2022 ADA RECOMMENDATION SEE BELOW Normal [facility] Comment on above: Result Comment: ADA RECOMMENDED LIMIT 4.0 - 6.0 ADA THERAPEUTIC TARGET < 7.0 ACTION SUGGESTED > 7.0 Performed By: #### U BRENT #### [facility] [address] [place] [address] Dr. Brandi Abarca Glucose [Mass/Vol] 120 mg/dL Normal [facility] Comment on above: Performed By: #### U BRENT #### [facility] [address] [address] [address] Brandi Abarca HbA1c (Bld) [Mass fraction] 5.8 % Normal 4.5-6.2 [facility] Comment on above: Performed By: #### U BRENT #### [facility] [address] [address] [address] Brandi Abarca MAGNESIUMon 11-10-2022 Magnesium [Mass/Vol] 1.6 mg/dL Critically low 1.8-2.4 [facility] Comment on above: Performed By: #### A 1C #### [facility] [address] [address] [address] Brandi Abarca PROF 14(COMP METB)on 023 Albumin [Mass/Vol] 2.6 g/dL Critically low 3.4-5.0 [facility] Comment on above: Performed By: #### U BRENT #### [facility] [address] [place] [address] Dr. Brandi Abarca Albumin/Globulin [Mass ratio] 0.7 {ratio} Normal [facility] Comment on above: Performed By: #### U BRENT #### [facility] [address] [place] [address] Dr. Brandi Abarca ALP [Catalytic activity/Vol] 84 U/L Normal 46-116 [facility] Comment on above: Performed By: #### U BRENT #### [facility] [address] [address] [address] Brandi Abarca ALT [Catalytic activity/Vol] 16 U/L Normal 14-59 [facility] Comment on above: Performed By: #### U BRENT #### [facility] [address] [place] [address] Dr. Brandi Abarca Anion gap [Moles/Vol] 5.4 mmol/L Normal [facility] Comment on above: Performed By: #### U BRENT #### [facility] [address] [place] [address] Dr. Brandi Abarca AST [Catalytic activity/Vol] 15 U/L Normal 15-37 [facility] Comment on above: Performed By: #### U BRENT #### [facility] [address] [address] [address] Brandi Abarca Bilirubin [Mass/Vol] 0.5 mg/dL Normal 0.2-1.0 [facility] Comment on above: Performed By: #### U BRENT #### [facility] [address] [place] [address] Dr. Brandi Abarca Calcium [Mass/Vol] 8.8 mg/dL Normal 8.5-10.1 [facility] Comment on above: Performed By: #### U BRENT #### [facility] [address] [address] [address] Brandi Abarca Chloride [Moles/Vol] 101 mmol/L Normal 98-107 [facility] Comment on above: Performed By: #### U BRENT #### [facility] [address] [address] [address] Brandi Abarca CO2 [Moles/Vol] 33.4 mmol/L Critically high 21.0-32.0 [facility] Comment on above: Performed By: #### U BRENT #### [facility] [address] [address] [address] Brandi Abarca Creatinine [Mass/Vol] 0.85 mg/dL Normal 0.55-1.02 [facility] Comment on above: Performed By: #### U BRENT #### [facility] [address] [address] [address] Brandi Abarca EGFR-AF GIBRALTARIAN >60 Normal >=60 [facility] Comment on above: Performed By: #### U BRENT #### [facility] [address] [address] [address] Brandi Abarca EGFR-NON AF GIBRALTARIAN >60 Normal >=60 [facility] Comment on above: Performed By: #### U BRENT #### [facility] [address] [address] [address] Brandi Abarca Globulin (S) [Mass/Vol] 3.9 g/dL Normal [facility] Comment on above: Performed By: #### U BRENT #### [facility] [address] [address] [address] Brandi Abarca Glucose [Mass/Vol] 116 mg/dL Critically high 74-106 [facility] Comment on above: Performed By: #### U BRENT #### [facility] [address] [place] [address] Dr. Brandi Abarca Potassium [Moles/Vol] 3.8 mmol/L Normal 3.5-5.1 [facility] Comment on above: Performed By: #### U BRENT #### [facility] [address] [address] [address] Brandi Abarca Protein [Mass/Vol] 6.5 g/dL Normal 6.4-8.2 [facility] Comment on above: Performed By: #### U BRENT #### [facility] [address] [place] [address] Dr. Brandi Abarca Sodium [Moles/Vol] 136 mmol/L Normal 136-145 [facility] Comment on above: Performed By: #### U BRENT #### [facility] [address] [place] [address] Dr. Brandi Abarca Urea nitrogen [Mass/Vol] 12.0 mg/dL Normal 7.0-18.0 [facility] Comment on above: Performed By: #### U BRENT #### [facility] [address] [place] [address] Dr. Brandi Abarca Urea nitrogen/Creatinine [Mass ratio] 14.1 mg/mg Normal [facility] Comment on above: Performed By: #### U BRENT #### [facility] [address] [place] [address] Dr. Brandi Abarca PTT HEPARIN MONITORon 2022 aPTT Coag (Bld) [Time] 48.7 s Normal 39.5-54.2 [facility] Comment on above: Performed By: #### P TTHEP #### [facility] [address] [place] [address] Dr. Brandi Abarca aPTT Coag (Bld) [Time] 56.6 s Critically high 39.5-54.2 [facility] Comment on above: Performed By: #### A 1C #### [facility] [address] [place] [address] Dr. Brandi Abarca aPTT Coag (Bld) [Time] 51.4 s Normal 39.5-54.2 [facility] Comment on above: Performed By: #### P TTHEP #### [facility] [address] [place] [address] Dr. Brandi Abarca BNPon 11-09-2022 Natriuretic peptide B (Bld) [Mass/Vol] 1702.0 pg/mL Normal <=1,800.0 [facility] Comment on above: Performed By: #### U BRENT #### [facility] [address] [place] [address] Dr. Brandi Abarca Natriuretic peptide B (Bld) [Mass/Vol] 1702.0 pg/mL Normal <=1,800.0 [facility] Comment on above: Performed By: #### H STROPN, BNP, BMP #### [facility] [address] [place] [address] Dr. Brandi Abarca CBC AUTO DIFFon 11-09-2022 BASO # 0.0 103/ul Normal 0.0-0.1 [facility] Comment on above: Performed By: #### A 1C #### [facility] [address] [place] [address] Dr. Brandi Abarca Basophils/100 WBC (Bld) 0.4 % Normal 0.2-2.0 [facility] Comment on above: Performed By: #### A 1C #### [facility] [address] [place] [address] Dr. Brandi Abarca EO # 0.2 103/ul Normal 0.0-0.7 [facility] Comment on above: Performed By: #### A 1C #### [facility] [address] [place] [address] Dr. Brandi Abarca Eosinophils/100 WBC (Bld) 1.8 % Normal 0.9-7.0 [facility] Comment on above: Performed By: #### A 1C #### [facility] [address] [place] [address] Dr. Brandi Abarca Erythrocyte distribution width (RBC) [Ratio] 13.6 % Normal 11.0-15.0 [facility] Comment on above: Performed By: #### A 1C #### [facility] [address] [place] [address] Dr. Brandi Abarca Hematocrit (Bld) [Volume fraction] 38.2 % Normal 36.0-48.0 [facility] Comment on above: Performed By: #### A 1C #### [facility] [address] [place] [address] Dr. Brandi Abarca Hemoglobin (Bld) [Mass/Vol] 12.2 g/dL Normal 12.0-16.0 [facility] Comment on above: Performed By: #### A 1C #### [facility] [address] [place] [address] Dr. Brandi Abarca IG # 0.02 10e3/ul Normal 0.00-0.03 [facility] Comment on above: Performed By: #### A 1C #### [facility] [address] [place] [address] Dr. Brandi Abarca IG % 0.2 % Normal 0.0-0.5 [facility] Comment on above: Performed By: #### A 1C #### [facility] [address] [place] [address] Dr. Brandi Abarca LYMPH # 1.3 103/ul Normal 1.2-3.8 [facility] Comment on above: Performed By: #### A 1C #### [facility] [address] [place] [address] Dr. Brandi Abarca Lymphocytes/100 WBC (Bld) 15.4 % Critically low 20.5-60.0 [facility] Comment on above: Performed By: #### A 1C #### [facility] [address] [place] [address] Dr. Brandi Abarca MANUAL DIFF REQ NO Normal [facility] Comment on above: Performed By: #### A 1C #### [facility] [address] [place] [address] Dr. Brandi Abarca MCH (RBC) [Entitic mass] 30.7 pg Normal 26.7-34.0 [facility] Comment on above: Performed By: #### A 1C #### [facility] [address] [place] [address] Dr. Brandi Abarca MCHC (RBC) [Mass/Vol] 31.9 g/dL Normal 29.9-35.2 [facility] Comment on above: Performed By: #### A 1C #### [facility] [address] [place] [address] Dr. Brandi Abarca MCV (RBC) [Entitic vol] 96.0 fL Normal 81.0-99.0 [facility] Comment on above: Performed By: #### A 1C #### [facility] [address] [place] [address] Dr. Brandi Abarca MONO # 0.7 103/ul Normal 0.3-0.8 [facility] Comment on above: Performed By: #### A 1C #### [facility] [address] [place] [address] Dr. Brandi Abarca Monocytes/100 WBC (Bld) 8.6 % Normal 1.7-12.0 [facility] Comment on above: Performed By: #### A 1C #### [facility] [address] [place] [address] Dr. Brandi Abarca NEUT # 6.0 103/ul Normal 1.4-6.5 [facility] Comment on above: Performed By: #### A 1C #### [facility] [address] [place] [address] Dr. Brandi Abarca Neutrophils/100 WBC (Bld) 73.6 % Normal 43.0-75.0 [facility] Comment on above: Performed By: #### A 1C #### [facility] [address] [place] [address] Dr. Brandi Abarca Platelet mean volume (Bld) [Entitic vol] 9.8 fL Normal 9.5-13.5 [facility] Comment on above: Performed By: #### A 1C #### [facility] [address] [place] [address] Dr. Brandi Abarca PLT 234 103/ul Normal 150-450 [facility] Comment on above: Performed By: #### A 1C #### [facility] [address] [place] [address] Dr. Brandi Abarca RBC 3.98 106/ul Critically low 4.20-5.40 [facility] Comment on above: Performed By: #### A 1C #### [facility] [address] [place] [address] Dr. Brandi Abarca WBC 8.1 103/ul Normal 4.0-11.0 [facility] Comment on above: Performed By: #### A 1C #### [facility] [address] [place] [address] Dr. Brandi Abarca CTA CHEST WO W CONon 11-09-2 023 CTA CHEST WO W CON EXAMINATION: CTA TREVOR ST WO W CON HISTORY: SHORTNESS OF BREATH COMPARISON: No relevant comparison available. TECHNIQUE: Multi-planar CT images were created with IV contrast. Axial, Coronal, and Sagittal images. Dose reduction techniques were achieved by using automated exposure control and/or adjustment of mA and/or kV according to patient size and/or use of iterative reconstruction technique. 3-D reconstruction was performed on a separate workstation. FINDINGS: VASCULATURE: Short segment of nonocclusive embolus within right lower lobe posterior basilar segmental artery. LUNGS: Mild chronic interstitial changes. No acute infiltrates. PLEURA: No mass, effusion, or pneumothorax. SAVANNAH: Calcified right hilar lymph nodes compatible with chronic granulomatous disease. MEDIASTINUM: No mass or adenopathy. CARDIAC: No enlargement, pericardial effusion, or pericardial thickening. AORTA: Dilation of ascending aorta, 4.4 cm. CHEST WALL: No mass or axillary adenopathy. BONES: No bone lesion or fracture. LIMITED ABDOMEN: No suspicious findings. Limited images of the upper abdomen. OTHER: Negative. IMPRESSION: 1. Small pulmonary embolus within single segmental artery of the right lower lobe posterior basilar segment. 2. Mild chronic interstitial changes; no acute infiltrates. 3. Mild aneurysmal dilation of ascending aorta. Electronically authenticated by: EYAD FREITAS Date: 2022-11-09 08:23 Normal [facility]18 SARS-CoV-2 (COVID-19) RNA SMILEY+probe Ql (Unsp spec) Not detected Normal NOT DETECTED [facility] Comment on above: Result Comment: This test is not yet approved or cleared by the [place] FDA. When there are no FDA-approved or cleared tests available, and other criteria are met, FDA can make tests available under an emergency access mechanism called an Emergency Use Authorization (EUA). The EUA for this test is supported by the Splicing Technician of Health and Human Service's (HHS's) declaration that circumstances exist to justify the emergency use of in vitro diagnostics for the detection and/or diagnosis of the virus that causes COVID-19. This EUA will remain in effect (meaning this test can be used) for the duration of the COVID-19 declaration justifying emergency of IVDs, unless it is terminated or revoked by FDA (after which the test may no longer be used). When diagnostic testing is negative, the possibility of a false negative should be considered in the context of a patient's recent exposures and the presence of clinical signs and symptoms consistent with SARS-CoV-2. Performed By: #### C [facility] #### [facility] [address] [address] [address] Brandi Abarca PROF CHEM 8 (BAS METB)on Anion gap [Moles/Vol] 12.2 mmol/L Normal [facility] Comment on above: Performed By: #### H STROPN, BNP, BMP #### [facility] [address] [place] [address] Dr. Brandi Abarca Calcium [Mass/Vol] 9.0 mg/dL Normal 8.5-10.1 [facility] Comment on above: Performed By: #### H STROPN, BNP, BMP #### [facility] [address] [place] [address] Dr. Brandi Abarca Chloride [Moles/Vol] 103 mmol/L Normal 98-107 [facility] Comment on above: Performed By: #### H STROPN, BNP, BMP #### [facility] [address] [place] [address] Dr. Brandi Abarca CO2 [Moles/Vol] 30.6 mmol/L Normal 21.0-32.0 [facility] Comment on above: Performed By: #### H STROPN, BNP, BMP #### [facility] [address] [place] [address] Dr. Brandi Abarca Creatinine [Mass/Vol] 0.89 mg/dL Normal 0.55-1.02 [facility] Comment on above: Performed By: #### H STROPN, BNP, BMP #### [facility] [address] [place] [address] Dr. Brandi Abarca EGFR-AF GIBRALTARIAN >60 Normal >=60 [facility] Comment on above: Performed By: #### H STROPN, BNP, BMP #### [facility] [address] [place] [address] Dr. Brandi Abarca EGFR-NON AF GIBRALTARIAN >60 Normal >=60 [facility] Comment on above: Performed By: #### H STROPN, BNP, BMP #### [facility] [address] [place] [address] Dr. Brandi Abarca Glucose [Mass/Vol] 102 mg/dL Normal 74-106 [facility] Comment on above: Performed By: #### H STROPN, BNP, BMP #### [facility] [address] [address] [address] Brandi Abarca Potassium [Moles/Vol] 3.8 mmol/L Normal 3.5-5.1 [facility] Comment on above: Performed By: #### H STROPN, BNP, BMP #### [facility] [address] [place] [address] Dr. Brandi Abarca Sodium [Moles/Vol] 142 mmol/L Normal 136-145 [facility] Comment on above: Performed By: #### H STROPN, BNP, BMP #### [facility] [address] [place] [address] Dr. Brandi Abarca Urea nitrogen [Mass/Vol] 16.0 mg/dL Normal 7.0-18.0 [facility] Comment on above: Performed By: #### H STROPN, BNP, BMP #### [facility] [address] [place] [address] Dr. Brandi Abarca Urea nitrogen/Creatinine [Mass ratio] 18.0 mg/mg Normal [facility] Comment on above: Performed By: #### H STROPN, BNP, BMP #### [facility] [address] [place] [address] Dr. Brandi Abarca PROTIMEon 11-09-2022 INR Coag (PPP) [Relative time] 1.00 {INR} Normal [facility] Comment on above: Performed By: #### A 1C #### [facility] [address] [place] [address] Dr. Brandi Abarca INR GUIDELINES SEE BELOW Normal [facility] Comment on above: Result Comment: NOVA RED INR: 2.0 - 3.0 CONDITIONS NOT LISTED BELOW 2.5 - 3.5 FOR PROSTHETIC HEART VALVE REPLACEMENT 2.5 - 3.5 RECURRENT THROMBOSIS Performed By: #### A 1C #### [facility] [address] [place] [address] Dr. Brandi Abarca PT Coag (PPP) [Time] 10.6 s Normal 9.0-11.6 [facility] Comment on above: Performed By: #### A 1C #### [facility] [address] [place] [address] Dr. Brandi Abarca PTTon 11-09-2022 aPTT Coag (Bld) [Time] 24.3 s Normal 22.3-36.2 [facility] Comment on above: Performed By: #### A 1C #### [facility] [address] [place] [address] Dr. Brandi Abarca PTT HEPARIN MONITORon 2022 aPTT Coag (Bld) [Time] 47.3 s Normal 39.5-54.2 [facility] Comment on above: Performed By: #### U BRENT #### [facility] [address] [place] [address] Dr. Brandi Abarca SYMPTOMATIC COVID-19 ANTIGEN on 11-09-2022 EUA Statement SEE BELOW Normal [facility] Comment on above: Result Comment: This test has not been FDA cleared or approved, but has been authorized by the FDA under an Emergency Use Authorization (EUA) for use by authorized laboratories certified under CLIA that meet the requirements to perform moderate or high complexity testing. This test has been authorized only for the detection of proteins from SARS-CoV-2, not for any other viruses or pathogens. The emergency use of this test is authorized for the duration of the declaration that circumstances exist justifying the authorization of emergency use of in vitro diagnostic tests for detection and/or diagnosis of Covid-19 under section 564(b)(1) of the Act, 21 U.S.C. 360bbb-3(b)(1), unless the declaration is terminated or authorization is revoked sooner. Performed By: #### C VDAGS #### [facility] [address] [place] [address] Dr. Brandi Abarca SARS-CoV-2 (COVID-19) RNA SMILEY+probe Ql (Unsp spec) Negative Normal NEGATIVE [facility] Comment on above: Performed By: #### C VDAGS #### [facility] [address] [place] [address] Dr. Brandi Abarca TROPONIN, HIGH SENSITIVITYon 11-09-2022 HSTROP 15.6 pg/mL Normal 4.0-51.3 [facility] Comment on above: Result Comment: CUT- OFF POINTS HAVE BEEN ESTABLISHED BASED ON THE FOURTH UNIVERSAL DEFINITIONS OF MYOCARDIAL INFARCTION. THE UPPER REFERENCE LIMIT (URL) OF TROPONIN, DEFINED THE 99TH PERCENTILE OF cTnI DISTRIBUTION IN A REFERENCE POPULATION, HAS BEEN CONFIRMED THE DECISION THRESHOLD FOR ME DIAGNOSIS. Performed By: #### H STROPN #### [facility] [address] [address] [address] Brandi Abarca HSTROP 16.4 pg/mL Normal 4.0-51.3 [facility] Comment on above: Result Comment: CUT- OFF POINTS HAVE BEEN ESTABLISHED BASED ON THE FOURTH UNIVERSAL DEFINITIONS OF MYOCARDIAL INFARCTION. THE UPPER REFERENCE LIMIT (URL) OF TROPONIN, DEFINED THE 99TH PERCENTILE OF cTnI DISTRIBUTION IN A REFERENCE POPULATION, HAS BEEN CONFIRMED THE DECISION THRESHOLD FOR ME DIAGNOSIS. Performed By: #### H STROPN, BNP, BMP #### [facility] [address] [place] [address] Dr. Brandi Abarca URIC ACID SERUMon 11-09-2022 Urate [Mass/Vol] 4.4 mg/dL Normal 2.6-6.0 [facility] Comment on above: Performed By: #### U BRENT #### [facility] [address] [place] [address] Dr. Brandi Abarca XR CHEST 1 Von 11-09-2022 XR CHEST 1 V EXAMINATION: XR CHES T 1 V HISTORY: SHORTNESS OF BREATH COMPARISON: 01/18/2016 TECHNIQUE: AP portable FINDINGS: LUNGS: No significant pulmonary parenchymal abnormalities. VASCULATURE: No increased pulmonary vasculature. PLEURA: No pneumothorax, effusion, or pleural thickening. CARDIAC: Moderate stable cardiomegaly MEDIASTINUM: No visible mass or adenopathy. BONES: No fracture or visible bone lesion. OTHER: Negative. IMPRESSION: No acute cardiopulmonary disease Electronically authenticated by: KIMBER MALLOY Date: 2022-11-09 07:22 Normal [facility] Vital Signs Date Time Vital Sign Value Performing Clinician Layo lundy 03-16-2024 15:27-0400 Body height 162.[address] Mackey APRN-GOVERNMENT CLERK Work Phone: [employer] 03-16-2024 15:27-0400 Body mass index (BMI) [Ratio] 39.82 kg/m2 Ave Mackey APRN-MARGARITA Work Phone: [facility] 03-16-2024 15:27-0400 Body temperature 98.29 [degF] Ave Mackey APRN-GOVERNMENT CLERK Work Phone: [facility] 03-16-2024 15:27-0400 Body weight 105.[address] Mackey APRN-MARGARITA Work Phone: [facility] 02-23-2024 15:12-0400 Body height 162.6 cm Paige Damon Work Phone: [facility] 02-23-2024 15:12-0400 Body mass index (BMI) [Ratio] 39.82 kg/m2 Paige Damon Work Phone: [facility] 02-23-2024 15:12-0400 Body temperature 98.2 [degF] Paige Damon Work Phone: [facility] 02-23-2024 15:12-0400 Body weight 105.23 kg Paige Damon Work Phone: [facility] 02-11-2024 07:32-0400 Body temperature 97.9 [degF] Mohan Gomez MD Work Phone: [facility] 02-11-2024 07:32-0400 Diastolic blood pressure 57 mm[Hg] Mohan Gomez MD Work Phone: [facility] 02-11-2024 07:32-0400 Heart rate 85 /min Mohan Gomez MD Work Phone: [facility] 02-11-2024 07:32-0400 Respiratory rate 18 /min Mohan Gomez MD Work Phone: [facility] 02-11-2024 07:32-0400 SaO2% (BldA) [Mass fraction] 94 % Mohan Gomez MD Work Phone: [facility] 02-11-2024 07:32-0400 Systolic blood pressure 109 mm[Hg] Mohan Gomez MD Work Phone: [facility] 02-11-2024 04:32-0400 Body mass index (BMI) [Ratio] 39.93 kg/m2 Mohan Gomez MD Work Phone: [facility] [employer] [facility] 02-11-2024 04:32-0400 Body weight 105.51 kg Mohan Gomez MD Work Phone: [facility] 02-02-2024 11:44-0400 Body height 162.6 cm [employer] Work Phone: [facility] [employer] [facility] 02-02-2024 11:44-0400 Body mass index (BMI) [Ratio] 41.37 kg/m2 [employer] Work Phone: [facility] [employer] [facility] 02-02-2024 11:44-0400 Body temperature 98.8 [degF] [employer] Work Phone: [employer] [facility] 02-02-2024 11:44-0400 Body weight 109.32 kg [employer] Work Phone: [facility] [employer] [facility] 01-19-2024 14:50-0400 Body height 162.6 cm Mohan Gomez MD Work Phone: [facility] [employer] [facility] 01-19-2024 12:50-0400 Body temperature 98.2 [degF] Erik Heredia MD Work Phone: [facility] [employer] [facility] 01-19-2024 12:50-0400 Diastolic blood pressure 62 mm[Hg] Erik Heredia MD Work Phone: [employer] [facility] 01-19-2024 12:50-0400 Heart rate 89 /min Erik Heredia MD Work Phone: [facility] 01-19-2024 12:50-0400 Respiratory rate 16 /min Erik Heredia MD Work Phone: [facility] 01-19-2024 12:50-0400 SaO2% (BldA) [Mass fraction] 97 % Erik Heredia MD Work Phone: [facility] [employer] [facility] 01-19-2024 12:50-0400 Systolic blood pressure 137 mm[Hg] Erik Heredia MD Work Phone: [facility] 01-13-2024 10:00-0400 Body mass index (BMI) [Ratio] 37.24 kg/m2 Erik Heredia MD Work Phone: [facility] 01-13-2024 10:00-0400 Body weight 98.4 kg Erik Heredia MD Work Phone: [facility] 01-11-2024 11:55-0400 Body height 162.6 cm Erik Heredia MD Work Phone: [facility] 12-01-2023 14:19-0400 Body height 162.6 cm Erik Heredia MD Work Phone: [facility] 12-01-2023 14:19-0400 Body mass index (BMI) [Ratio] 38.96 kg/m2 Erik Heredia MD Work Phone: [facility] 12-01-2023 14:19-0400 Body weight 102.97 kg Erik Heredia MD Work Phone: [facility] Encounters Encounter Date Encounter Type Care Provider Facility Start: 03-16-2024 End: 03-16-2024 Postop follow up visit related to original px Paige Damon Work Phone: [facility] Comment on above: 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) Start: 03-16-2024 End: 03-16-2024 Subsequent hospital visit by physician Paige Damon Work Phone: [facility] Start: 03-16-2024 ambulatory PAIGE DAMON [facility] Start: 02-23-2024 End: 02-23-2024 Postop follow up visit related to original px Paige Damon Work Phone: [facility] Comment on above: S/P total left hip a rthroplasty (Primary Dx) Start: 02-23-2024 ambulatory PAIGE DAMON [facility] Start: 02-23-2024 End: 02-23-2024 Subsequent hospital visit by physician Paige Damon Work Phone: [facility] Start: 02-02-2024 End: 02-02-2024 Postop follow up visit related to original px Paige Damon Work Phone: [facility] Comment on above: S/P total left hip a rthroplasty (Primary Dx) Start: 02-02-2024 End: 02-02-2024 Subsequent hospital visit by physician Paige Damon Work Phone: [facility] Start: 02-02-2024 [facility] Start: 01-19-2024 End: 02-11-2024 Evaluation and management of inpatient Mohan Gomez MD Work Phone: [facility] Start: 01-11-2024 End: 01-19-2024 ambulatory TIAN KUHN [facility] Start: 01-11-2024 End: 01-19-2024 Encounter for other preprocedural examination [facility] Start: 01-11-2024 End: 01-19-2024 Patient encounter status Erik Heredia MD Work Phone: [facility] Start: 01-11-2024 End: 01-19-2024 Subsequent hospital visit by physician Erik Heredia MD Work Phone: [facility] Comment on above: S/P total hip arthro plasty Start: 12-22-2023 End: 12-22-2023 ambulatory [facility] Start: 12-22-2023 End: 12-22-2023 Encounter for other preprocedural examination [facility] Start: 12-16-2023 ambulatory ABHI BALTAZAR [facility] Start: 12-01-2023 End: 12-01-2023 Office outpatient new 60 minutes Erik Heredia MD Work Phone: [facility] Comment on above: Pain of left hip (Pr imary Dx) Start: 12-01-2023 End: 12-01-2023 Subsequent hospital visit by physician Erik Heredia MD Work Phone: [facility] Start: 12-01-2023 ambulatory TRUMAN BOO JR. [facility] Start: 11-03-2023 End: 11-04-2023 ambulatory TRUMAN ARRIAGA Not Available Start: 09-18-2023 End: 09-19-2023 ambulatory TIAN KUHN [facility] Start: 11-09-[address] TIAN KUHN Fac ility:H1 Start: 11-09-2022 End: 11-11-2022 Evaluation and management of inpatient DR TIAN KUHN Facility:[facility]1 Procedures Date Procedure Procedure Detail Performing Clinician Start: 02-11-2024 Basic metabolic pane l calcium total Mohan Gomez MD Work Phone: Start: 02-11-2024 C-reactive protein Lev Moreno MD Work Phone: Start: 02-11-2024 Complete blood count with white cell differential, automated Mohan Gomez MD Work Phone: Start: 02-10-2024 Basic metabolic pane l calcium total Mohan Gomez MD Work Phone: Start: 02-10-2024 C-reactive protein Lev Moreno MD Work Phone: Start: 02-09-2024 Basic metabolic pane l calcium total Mohan Gomez MD Work Phone: Start: 02-09-2024 C-reactive protein Lev Moreno MD Work Phone: Start: 02-08-2024 Basic metabolic pane l calcium total Mohan Gomez MD Work Phone: Start: 02-08-2024 C-reactive protein Lev y Martin Moreno MD Work Phone: Start: 02-07-2024 Basic metabolic pane l calcium total oMhan Gomez MD Work Phone: Start: 02-07-2024 C-reactive protein Adriannac y F Josh AL Work Phone: Start: 02-06-2024 Basic metabolic pane l calcium total Mohan Gomez MD Work Phone: Start: 02-06-2024 C-reactive protein Nanc y F Josh AL Work Phone: Start: 02-05-2024 Basic metabolic pane l calcium total Mohan Gomez MD Work Phone: Start: 02-05-2024 C-reactive protein Adriannac y F Josh AL Work Phone: Start: 02-04-2024 Basic metabolic pane l calcium total Mohan Gomez MD Work Phone: Start: 02-04-2024 C-reactive protein Adriannac y F Josh AL Work Phone: Start: 02-03-2024 Urnls dip stick/tabl et rgnt auto w/o microscopy Mohan Gomez MD Work Phone: Start: 02-03-2024 Basic metabolic pane l calcium total Mohan Gomez MD Work Phone: Start: 02-03-2024 C-reactive protein Lev y Martin Moreno MD Work Phone: Start: 02-02-2024 Basic metabolic pane l calcium total Mohan Gomez MD Work Phone: Start: 02-02-2024 C-reactive protein Adriannac y F Josh AL Work Phone: Start: 02-01-2024 Basic metabolic pane l calcium total Mohan Gomez MD Work Phone: Start: 02-01-2024 C-reactive protein Adriannac y F Josh AL Work Phone: Start: 01-31-2024 Basic metabolic pane l calcium total Mohan Gomez MD Work Phone: Start: 01-31-2024 Hepatic function panel Janet Moreno MD Work Phone: Start: 01-30-2024 Basic metabolic pane l calcium total Mohan Gomez MD Work Phone: Start: 01-30-2024 C-reactive protein Lev Moreno MD Work Phone: Start: 01-29-2024 Basic metabolic pane l calcium total Mohan Gomez MD Work Phone: Start: 01-29-2024 C-reactive protein Lev Moreno MD Work Phone: Start: 01-28-2024 Basic metabolic pane l calcium total Mohan Gomez MD Work Phone: Start: 01-28-2024 C-reactive protein Lev Moreno MD Work Phone: Start: 01-27-2024 Basic metabolic pane l calcium total Mohan Gomez MD Work Phone: Start: 01-27-2024 C-reactive protein Lev Moreno MD Work Phone: Start: 01-26-2024 Basic metabolic pane l calcium total Mohan Gomez MD Work Phone: Start: 01-26-2024 C-reactive protein Lev Moreno MD Work Phone: Start: 01-25-2024 Basic metabolic pane l calcium total Mohan Gomez MD Work Phone: Start: 01-25-2024 C-reactive protein Lev Moreno MD Work Phone: Start: 01-24-2024 Iadna-dna/rna gi pth gn multiplex probe tq 12-25 Janet Moreno MD Work Phone: Start: 01-24-2024 Inf agent det nuclei c acid clostridium amp probe Janet Moreno MD Work Phone: Start: 01-24-2024 Basic metabolic pane l calcium total Mohan Gomez MD Work Phone: Start: 01-24-2024 C-reactive protein Lev Moreno MD Work Phone: Start: 01-23-2024 Basic metabolic pane l calcium total Mohan Gomez MD Work Phone: Start: 01-23-2024 Hepatic function panel Janet Moreno MD Work Phone: Start: 01-22-2024 Basic metabolic pane l calcium total Mohan Gomez MD Work Phone: Start: 01-22-2024 C-reactive protein Lev Moreno MD Work Phone: Start: 01-21-2024 Culture bacterial quanttative colony count urine Janet Moreno MD Work Phone: Start: 01-21-2024 Cultyp nuc acid amp prb cult/isolate ea orgnism Janet Moreno MD Work Phone: Start: 01-21-2024 Basic metabolic pane l calcium total Mohan Gomez MD Work Phone: Start: 01-20-2024 Radiologic exam ches t single view Mohan Gomez MD Work Phone: Start: 01-20-2024 Basic metabolic pane l calcium total Mohan Gomez MD Work Phone: Start: 01-18-2024 Basic metabolic pane l calcium total Luis Monte MD Work Phone: Start: 01-17-2024 Radiologic examinati on foot 2 views Paige Damon Work Phone: Start: 01-17-2024 Renal function panel Sa nati Damon Work Phone: Start: 01-14-2024 Blood count complete auto&auto difrntl wbc Ave Mackey ENTRY LEVEL ACCOUNT EXECUTIVE-GOVERNMENT CLERK Work Phone: Start: 01-13-2024 Assay of troponin quantitative Luis Monte MD Work Phone: Start: 01-13-2024 Ecg routine ecg w/le ast 12 lds trcg only w/o i&r Luis Monte MD Work Phone: Start: 01-13-2024 End: 01-13-2024 Basic metabolic panel calcium total Luis Monte MD Work Phone: Start: 01-12-2024 Basic metabolic pane l calcium total Luis Monte MD Work Phone: Start: 01-11-2024 Radiologic examinati on pelvis 1/[address] APRN-GOVERNMENT CLERK Work Phone: Start: 01-11-2024 SURGICAL PATHOLOGY REQUEST Erik Heredia MD Work Phone: Start: 01-11-2024 End: 01-11-2024 Arthrp acetblr/prox fem prostc agrft/algrft Erik Heredia MD Work Phone: Start: 01-11-2024 Blood group typing, RH phenotyping Susan Chadwick PA-C Work Phone: Start: 01-11-2024 Prothrombin time Susan brian PA-C Work Phone: Start: 01-11-2024 GENERAL PROCEDURE Shantell Dasilva RN Plan of Treatment Date Care Activity Detail Author Start: 02-14-2026 Tetanus vaccination [facility] Start: 03-19-2024 Influenza vaccination [facility] Start: 03-17-2024 End: 03-17-2024 Patient encounter procedure 03/17/2024 10:45 AM EDT Office Visit [facility] [address] [place] [address] Mohan Gomez MD [address] [place] [address] [facility] Start: 03-09-2024 End: 03-09-2024 Patient encounter procedure 03/09/2024 4:00 PM EDT Office Visit [facility] [address] [place] [address] [address], ENTRY LEVEL ACCOUNT EXECUTIVE-GOVERNMENT CLERK [address] [place] [address] [facility] Start: 02-23-2024 End: 02-23-2024 ambulatory [facility] Start: 02-23-2024 End: 02-23-2024 Patient encounter procedure 02/23/2024 3:00 PM EDT Office Visit [facility] [address] [place] [address] Paige Damon [address] [place] [address] [facility] Start: 02-21-2024 End: 02-21-2024 [facility] Start: 02-02-2024 End: 02-02-2024 Patient encounter procedure 02/02/2024 11:30 AM EDT Office Visit [facility] [address] [place] [address] Paige Damon [address] [place] [address] [facility] Start: 01-10-2024 End: 01-10-2024 Admission to same day surgery center 01/10/2024 6:45 AM EDT - 01/10/2024 8:00 AM EDT Surgery [address] [place] [address] Erik Heredia MD [address] [place] [address] ARTHROPLASTY HIP TOTAL AL [facility] Comment on above: ARTHROPLASTY HIP TOT AL AL Start: 01-10-2024 End: 01-10-2024 Arthrp acetblr/prox fem prostc agrft/algrft ARTHROPLASTY HIP TOTAL LATERAL APPROACH Osteoarthritis of left hip, unspecified osteoarthritis type 01/10/2024 6:45 AM EDT [facility] Start: 01-10-2024 Subsequent hospital visit by physician 01/10/2024 6:45 AM EDT Hospital Encounter [facility] [address] [place] [address] Erik Heredia MD [address] [place] [address] Osteoarthritis of left hip, unspecified osteoarthritis type [facility] Comment on above: Osteoarthritis of le ft hip, unspecified osteoarthritis type Start: 12-16-2023 End: 12-16-2023 Admission to establishment 12/16/2023 10:00 AM EDT Pre-Operative Nurse Assessment [facility] [address] [place] [address] [facility] Start: 03-19-2023 COVID-19 VACCINE ( season) COVID-19 VACCINE ( season) [facility] Start: 03-19-2023 [facility] Start: 10-17-2008 Pneumococcal vaccination [facility] Start: 2005 Zoster vaccine hzv l cheryl for subcutaneous use ZOSTER (SHINGLES) VACCINE (2 of 3) [facility] Start: 2005 [facility] Start: 2002 RSV VACCINE (1 - 1-d ose 60+ series) RSV VACCINE (1 - 1-dose 60+ series) [facility] Start: 10-11-1987 Screening for malign ant neoplasm of colon [facility] Start: 08-23-1985 Hepatitis B vaccination [facility] Start: 1982 Screening for malign ant neoplasm of breast [facility] Start: 10-11-1963 Screening for malign ant neoplasm of cervix [facility] Start: 1942 Screening for osteoporosis [facility] End: 01-11-2024 XR Hip - left Single view [facility] Comment on above: One Time for 1 Occur rences starting 01/11/2024 until 01/11/2024 XR Pelvis and Hip - left Views XR HIP WITH PELVIS LEFT Imaging Routine Pain of left hip 12/01/2023 2:03 PM EDT [facility] Work Phone: XR Pelvis and Hip - left Views XR HIP WITH PELVIS LEFT Imaging Routine S/P total left hip arthroplasty 02/02/2024 11:31 AM EDT [facility] XR Pelvis and Hip - left Views XR HIP WITH PELVIS LEFT Imaging Routine S/P total left hip arthroplasty 02/23/2024 2:59 PM EDT [facility] XR Pelvis and Hip - left Views XR HIP WITH PELVIS LEFT Imaging Routine Hx of total hip arthroplasty, left 03/16/2024 2:21 PM EDT [facility] Immunizations Immunization Date Immunization Notes Care Provider Fa cili 02-12-2021 influenza virus vaccine, unspecified formulation Erik Heredia MD Work Phone: [facility] 08-15-2005 zoster vaccine, unspecified formulation Erik Heredia MD Work Phone: [facility] Payers Date Payer Category Payer Medicare [id number] 1957 Medicare [id number] 1940 Unknown [id number] 2.16.84 [id number] 1940 Unknown [id number] 2.16.8 [id number] 1942 Unknown [id number] 2.16.8 40.1.986228.3.579.2.1286 1942 Unknown [id number] 2.16.8 40.1.361242.3.579.2.1286 1942 Unknown [id number] 2.16.84 0.1.098292.3.579.2.1259 1942 Unknown [id number] 2.16.84 0.1.380051.3.579.2.1259 1942 Unknown [id number] 2.16.8 40.1.755892.3.579.2.983 1942 Unknown [id number] 2.16.8 40.1.266111.3.579.2.983 1942 Unknown [id number] 2.16.8 40.1.080942.3.579.2.983 1942 Unknown [id number] 2.16.8 40.1.518602.3.579.2.983 1942 Unknown [id number] 2.16.8 40.1.086223.3.579.2.983 1942 Unknown [id number] 2.16.8 40.1.565451.3.579.2.983 1942 Unknown [id number] 2.16.8 40.1.856050.3.579.2.983 1942 Unknown [id number] 2.16.8 40.1.065495.3.579.2.983 1942 Unknown [id number] 2.16.8 40.1.960846.3.579.2.983 1942 Unknown [id number] 2.16.8 40.1.321067.3.579.2.983 1942 Unknown [id number] 2.16.8 [id number] Social History Date Type Detail Facility Start: 12-01-2023 Tobacco smoking status NHIS Never sm oked tobacco [facility] Start: 12-01-2023 Tobacco use and exposure Smoke less tobacco non-user [facility] Start: 12-01-2023 End: 03-16-2024 Alcoholic beverage intake Lifetime non-drinker (finding) [facility] Start: 12-01-2023 End: 01-21-2024 History of Social function [facility] Start: 12-01-2023 End: 01-21-2024 Tobacco use panel [facility] Start: 1940 Sex assigned at Not on file [employer] Has the [email or web address], or [employer] threatened to shut off services in your home in past 12Mo No [employer] (I/We) worried david er (my/our) food would run out before (I/we) got money to buy more. Never true [employer] In the past 12 month s, has lack of transportation kept you from medical appointments or from getting medications? No [employer] How hard is it for y ou to pay for the very basics like food, housing, medical care, and heating Not very hard [employer] Medical Equipment Procedure Code Equipment Code Equipment Origin al Text Equipment Identifier Dates [id number] Start: 01-11-2024 [id number] Start: 01-11-2024 [id number] Start: 01-11-2024 [id number] Start: 01-11-2024 [id number] Start: 01-11-2024 [id number] Start: 01-11-2024 [id number] Start: 01-11-2024 [id number] Start: 01-11-2024 [id number] Start: 01-11-2024 [id number] Start: 01-11-2024 Clinical Notes 12-01-2023 to 03-16-2024 Alhaji Dickinson, [facility] - 03/16/2024 3:00 PM RENE Coon - 03/16/2024 3:00 PM EDNorma Dickinson, [facility] - 02/23/2024 3:00 PM Tylor Damon - 02/23/2024 3:00 PM EDTDispatrica Instr - Activity Note Date & Type Note Facility 03-16-2024 History of Presen t illness Narrative Ortho Nurse - Established Patient Intake Room#: 4 01/11/24 ARTHROPLASTY HIP TOTAL AL left Patient arrives with her grandson in her wheelchair. She is an 83 year old female. She has no complaints and is hoping to move to weight bearing status. Date: 03/16/2024 3:22 PM Patient: Cuate Goodman MR#: [id number] : 1940 Age: 83 y.o. Referring Physician: Self, Self Insurance: Payor: MEDICARE [employer] HMO OR PPO / Plan: MEDICARE [employer] PPO / Product Type: *No Product type* / No chief complaint on file. There were no vitals taken for this visit. Pain Recent Labs Lab Results Component Value Date CRP 22.8 (H) 02/11/2024 Lab Results Component Value Date SEDRATE 75 (H) 02/08/2024 Lab Results Component Value Date WBC 5.0 02/11/2024 HGB 10.7 (L) 02/11/2024 HCT 31.9 (L) 02/11/2024 PLATELET 368 02/11/2024 MCV 96.1 02/11/2024 History Past Medical History: Diagnosis Date Aortic aneurysm Arthritis Deep vein thrombosis (DVT) GERD (gastroesophageal reflux disease) H/O unilateral nephrectomy per pt Past Surgical History: Procedure Laterality Date ARTHROPLASTY HIP TOTAL Left 01/11/2024 Laterality: Left; Surgeon: Erik Heredia MD; Location: [facility] NEPHRECTOMY Right 1978 CHOLECYSTECTOMY HIP REPLACEMENT Right HYSTERECTOMY KNEE REPLACEMENT Bilateral left x 2 LITHOTRIPSY multiple Family History: Her family history is not on file. Social History: Her reports that she has never smoked. She has never used smokeless tobacco. She reports that she does not drink alcohol and does not use drugs. Outpatient Medications Prior to Visit Medication Sig Dispense Refill Acetaminophen 325 MG tablet Take 2 tablets by mouth every 4 hours as needed for Mild Pain. 50 tablet 1 Allopurinol 100 MG tablet Take 1 tablet by mouth daily. Cholecalciferol (Vitamin D-3) 25 MCG (1000 UT) capsule Take by mouth. cyanocobalamin 1000 MCG tablet Take 5 tablets by mouth. Docusate 100 MG capsule Take 1 capsule by mouth 2 times daily. 60 capsule 0 Eliquis 5 MG tablet Take 1 tablet by mouth every 12 hours. ferrous sulfate 325 (65 Fe) MG tablet Take 1 tablet by mouth daily. 90 tablet 0 hydroCODone-acetaminophen 5-325 MG tablet Take 1-2 tablets by mouth every 6 hours as needed for up to 7 days. Do not take over 4000mg acetaminophen daily. 30 tablet 0 magnesium oxide 400 (240 Mg) MG Take 1 tablet by mouth 2 times daily. Multiple Vitamin (multivitamin) tablet Take 1 tablet by mouth daily. omeprazole [address] capsule 1 capsule daily. qam tolterodine 4 MG Cap SR 24HR Take 1 capsule by mouth daily. 30 capsule 0 No facility-administered medications prior to visit. Current Outpatient Medications: Acetaminophen 325 MG tablet, Take 2 tablets by mouth every 4 hours as needed for Mild Pain., Disp: 50 tablet, Rfl: 1 Allopurinol 100 MG tablet, Take 1 tablet by mouth daily., Disp: , Rfl: Cholecalciferol (Vitamin D-3) 25 MCG (1000 UT) capsule, Take by mouth., Disp: , Rfl: cyanocobalamin 1000 MCG tablet, Take 5 tablets by mouth., Disp: , Rfl: Docusate 100 MG capsule, Take 1 capsule by mouth 2 times daily., Disp: 60 capsule, Rfl: 0 Eliquis 5 MG tablet, Take 1 tablet by mouth every 12 hours., Disp: , Rfl: ferrous sulfate 325 (65 Fe) MG tablet, Take 1 tablet by mouth daily., Disp: 90 tablet, Rfl: 0 hydroCODone-acetaminophen 5-325 MG tablet, Take 1-2 tablets by mouth every 6 hours as needed for up to 7 days. Do not take over 4000mg acetaminophen daily., Disp: 30 tablet, Rfl: 0 magnesium oxide 400 (240 Mg) MG, Take 1 tablet by mouth 2 times daily., Disp: , Rfl: Multiple Vitamin (multivitamin) tablet, Take 1 tablet by mouth daily., Disp: , Rfl: omeprazole [address] capsule, 1 capsule daily. qam, Disp: , Rfl: tolterodine 4 MG Cap SR 24HR, Take 1 capsule by mouth daily., Disp: 30 capsule, Rfl: 0 Allergies: She is allergic to morphine, oxycodone, and penicillins. SUBJECTIVE: Cuate is an established patient of [facility]. Here today for followup. She is now about 8 weeks out from left total hip arthroplasty with periprosthetic femur fracture. She reports overall she is doing well. No fevers, chills, or changes constitutionally. She has been maintaining partial weightbearing. She has had complete resolution of the yeast infection that she was having in her abdomen that was treated by primary care and has been cleared up. PHYSICAL EXAMINATION: GENERAL: She is alert, oriented, and age-appropriate female, in no acute distress. Pleasant and cooperative. EXTREMITIES: The left lower extremity has thigh and calf soft, nontender. Normal neurovascular status. Negative Homans sign. Full and supple range of motion of the hip without pain or impingement. Skin is intact, otherwise well-healed incision. Right lower extremity has thigh and calf soft, nontender. Normal neurovascular status. Negative Homans sign. DIAGNOSTIC STUDY INTERPRETATION: AP pelvis and left hip series taken today demonstrate stable position and alignment of the total hip arthroplasty with cable and plate fixation overlying the greater trochanter. This is in unchanged position and alignment when compared to previous imaging. No evidence of periprosthetic implant loosening or migration. No evidence of fracture. ASSESSMENT: Eight weeks status post left total hip, doing well. PLAN: I reviewed my findings with Cuate as well as her grandson today. At this point, can be weightbearing as tolerated. I would like her to follow up 4 months postop. Call with any questions or concerns in the meantime. ([phone]:[id number]) I have reviewed the findings of the clinical technical sales support manager and agree with their assessment. Ave Mackey APRN-MARGARITA Ortho Nurse - Established Patient Intake Room#: 4 01/11/24 ARTHROPLASTY HIP TOTAL AL left Patient arrives with her grandson in her wheelchair. She is an 83 year old female. She has no complaints and is hoping to move to weight bearing status. Date: 03/16/2024 3:22 PM Patient: Cuate Goodman MR#: [id number] : 1940 Age: 83 y.o. Referring Physician: Self, Self Insurance: Payor: MEDICARE AET HMO OR PPO / Plan: MEDICARE AETNA PPO / Product Type: *No Product type* / No chief complaint on file. There were no vitals taken for this visit. Pain Recent Labs Lab Results Component Value Date CRP 22.8 (H) 02/11/2024 Lab Results Component Value Date SEDRATE 75 (H) 02/08/2024 Lab Results Component Value Date WBC 5.0 02/11/2024 HGB 10.7 (L) 02/11/2024 HCT 31.9 (L) 02/11/2024 PLATELET 368 02/11/2024 MCV 96.1 02/11/2024 History Past Medical History: Diagnosis Date Aortic aneurysm Arthritis Deep vein thrombosis (DVT) GERD (gastroesophageal reflux disease) H/O unilateral nephrectomy per pt Past Surgical History: Procedure Laterality Date ARTHROPLASTY HIP TOTAL Left 01/11/2024 Laterality: Left; Surgeon: Erik Heredia MD; Location: [facility] OR NEPHRECTOMY Right 1978 CHOLECYSTECTOMY HIP REPLACEMENT Right HYSTERECTOMY KNEE REPLACEMENT Bilateral left x 2 LITHOTRIPSY multiple Family History: Her family history is not on file. Social History: Her reports that she has never smoked. She has never used smokeless tobacco. She reports that she does not drink alcohol and does not use drugs. Outpatient Medications Prior to Visit Medication Sig Dispense Refill Acetaminophen 325 MG tablet Take 2 tablets by mouth every 4 hours as needed for Mild Pain. 50 tablet 1 Allopurinol 100 MG tablet Take 1 tablet by mouth daily. Cholecalciferol (Vitamin D-3) 25 MCG (1000 UT) capsule Take by mouth. cyanocobalamin 1000 MCG tablet Take 5 tablets by mouth. Docusate 100 MG capsule Take 1 capsule by mouth 2 times daily. 60 capsule 0 Eliquis 5 MG tablet Take 1 tablet by mouth every 12 hours. ferrous sulfate 325 (65 Fe) MG tablet Take 1 tablet by mouth daily. 90 tablet 0 hydroCODone-acetaminophen 5-325 MG tablet Take 1-2 tablets by mouth every 6 hours as needed for up to 7 days. Do not take over 4000mg acetaminophen daily. 30 tablet 0 magnesium oxide 400 (240 Mg) MG Take 1 tablet by mouth 2 times daily. Multiple Vitamin (multivitamin) tablet Take 1 tablet by mouth daily. omeprazole [address] capsule 1 capsule daily. qam tolterodine 4 MG Cap SR 24HR Take 1 capsule by mouth daily. 30 capsule 0 No facility-administered medications prior to visit. Current Outpatient Medications: Acetaminophen 325 MG tablet, Take 2 tablets by mouth every 4 hours as needed for Mild Pain., Disp: 50 tablet, Rfl: 1 Allopurinol 100 MG tablet, Take 1 tablet by mouth daily., Disp: , Rfl: Cholecalciferol (Vitamin D-3) 25 MCG (1000 UT) capsule, Take by mouth., Disp: , Rfl: cyanocobalamin 1000 MCG tablet, Take 5 tablets by mouth., Disp: , Rfl: Docusate 100 MG capsule, Take 1 capsule by mouth 2 times daily., Disp: 60 capsule, Rfl: 0 Eliquis 5 MG tablet, Take 1 tablet by mouth every 12 hours., Disp: , Rfl: ferrous sulfate 325 (65 Fe) MG tablet, Take 1 tablet by mouth daily., Disp: 90 tablet, Rfl: 0 hydroCODone-acetaminophen 5-325 MG tablet, Take 1-2 tablets by mouth every 6 hours as needed for up to 7 days. Do not take over 4000mg acetaminophen daily., Disp: 30 tablet, Rfl: 0 magnesium oxide 400 (240 Mg) MG, Take 1 tablet by mouth 2 times daily., Disp: , Rfl: Multiple Vitamin (multivitamin) tablet, Take 1 tablet by mouth daily., Disp: , Rfl: omeprazole [address] capsule, 1 capsule daily. qam, Disp: , Rfl: tolterodine 4 MG Cap SR 24HR, Take 1 capsule by mouth daily., Disp: 30 capsule, Rfl: 0 Allergies: She is allergic to morphine, oxycodone, and penicillins. documented in this encounter [facility] 02-23-2024 History of Presen t illness Narrative Ortho Nurse - Established Patient Intake Room#: 6 Patient is an 83 year old female who arrives for 6 week postop (01/11/24) left ANGELIQUE-AL. Patient is experiencing 8/10 in pain while at rest and 8/10 pain while active/weightbearing. Last visit visit on 02/02/24 she was advised to continue DVT prophylaxis as prescribed and is still using Eliquis but has not been wearing her JOSAFAT hose. She was advised to use TDWB for the next 3 weeks. Patient was encouraged to keep pressure off wound. Date: 02/23/2024 2:58 PM Patient: Cuate Goodman MR#: [id number] : 1940 Age: 83 y.o. Referring Physician: Self, Self Insurance: Payor: MEDICARE AET HMO OR PPO / Plan: MEDICARE AET PPO / Product Type: *No Product type* / No chief complaint on file. There were no vitals taken for this visit. Pain Recent Labs Lab Results Component Value Date CRP 22.8 (H) 02/11/2024 Lab Results Component Value Date SEDRATE 75 (H) 02/08/2024 Lab Results Component Value Date WBC 5.0 02/11/2024 HGB 10.7 (L) 02/11/2024 HCT 31.9 (L) 02/11/2024 PLATELET 368 02/11/2024 MCV 96.1 02/11/2024 History Past Medical History: Diagnosis Date Aortic aneurysm Arthritis Deep vein thrombosis (DVT) GERD (gastroesophageal reflux disease) H/O unilateral nephrectomy per pt Past Surgical History: Procedure Laterality Date ARTHROPLASTY HIP TOTAL Left 01/11/2024 Laterality: Left; Surgeon: Erik Heredia MD; Location: [facility] NEPHRECTOMY Right 1978 CHOLECYSTECTOMY HIP REPLACEMENT Right HYSTERECTOMY KNEE REPLACEMENT Bilateral left x 2 LITHOTRIPSY multiple Family History: Her family history is not on file. Social History: Her reports that she has never smoked. She has never used smokeless tobacco. She reports that she does not drink alcohol and does not use drugs. Outpatient Medications Prior to Visit Medication Sig Dispense Refill Acetaminophen 325 MG tablet Take 2 tablets by mouth every 4 hours as needed for Mild Pain. 50 tablet 1 Allopurinol 100 MG tablet Take 1 tablet by mouth daily. Cholecalciferol (Vitamin D-3) 25 MCG (1000 UT) capsule Take by mouth. cyanocobalamin 1000 MCG tablet Take 5 tablets by mouth. Docusate 100 MG capsule Take 1 capsule by mouth 2 times daily. 60 capsule 0 Eliquis 5 MG tablet Take 1 tablet by mouth every 12 hours. ferrous sulfate 325 (65 Fe) MG tablet Take 1 tablet by mouth daily. 90 tablet 0 hydroCODone-acetaminophen 5-325 MG tablet Take 1-2 tablets by mouth every 6 hours as needed for up to 7 days. Do not take over 4000mg acetaminophen daily. 30 tablet 0 magnesium oxide 400 (240 Mg) MG Take 1 tablet by mouth 2 times daily. Multiple Vitamin (multivitamin) tablet Take 1 tablet by mouth daily. omeprazole [address] capsule 1 capsule daily. qam tolterodine 4 MG Cap SR 24HR Take 1 capsule by mouth daily. 30 capsule 0 No facility-administered medications prior to visit. Current Outpatient Medications: Acetaminophen 325 MG tablet, Take 2 tablets by mouth every 4 hours as needed for Mild Pain., Disp: 50 tablet, Rfl: 1 Allopurinol 100 MG tablet, Take 1 tablet by mouth daily., Disp: , Rfl: Cholecalciferol (Vitamin D-3) 25 MCG (1000 UT) capsule, Take by mouth., Disp: , Rfl: cyanocobalamin 1000 MCG tablet, Take 5 tablets by mouth., Disp: , Rfl: Docusate 100 MG capsule, Take 1 capsule by mouth 2 times daily., Disp: 60 capsule, Rfl: 0 Eliquis 5 MG tablet, Take 1 tablet by mouth every 12 hours., Disp: , Rfl: ferrous sulfate 325 (65 Fe) MG tablet, Take 1 tablet by mouth daily., Disp: 90 tablet, Rfl: 0 hydroCODone-acetaminophen 5-325 MG tablet, Take 1-2 tablets by mouth every 6 hours as needed for up to 7 days. Do not take over 4000mg acetaminophen daily., Disp: 30 tablet, Rfl: 0 magnesium oxide 400 (240 Mg) MG, Take 1 tablet by mouth 2 times daily., Disp: , Rfl: Multiple Vitamin (multivitamin) tablet, Take 1 tablet by mouth daily., Disp: , Rfl: omeprazole [address] capsule, 1 capsule daily. qam, Disp: , Rfl: tolterodine 4 MG Cap SR 24HR, Take 1 capsule by mouth daily., Disp: 30 capsule, Rfl: 0 Allergies: She is allergic to morphine, oxycodone, and penicillins. Cuate Goodman is now 6 weeks s/p left Anterolateral total hip arthroplasty. Her son and granddaughter are present for today's visit. She did have an intra-op fracture of the greater trochanter that was secured with plate and cables. She was discharged from the [facility] unit last week. Was following with Dr. Gomez and Dr. Moreno while there. It is noted that she canceled her follow up visits with both. She reports she did not understand why she needed to continue seeing Dr. Moreno. When asked about her yeast infection she reports it has gotten much worse. There was an issue with the pharmacy and she was unable to retrieve any medications that she was discharged from the Swing Unit to be on. In regard to the hip, she is progressing nicely in her recovery. She is TDWB with global restrictions. She reports 8 out of 10 pain. She is using Tylenol only as needed for pain control and has completed her regimen for DVT prophylaxis along with JOSAFAT schwab. Physical Exam: Today on exam incision is well healed with mild global hip swelling, no erythema, drainage or evidence of dehiscence. Calves are soft and nontender with negative Homans sign. ROM is full and supple with no pain or impingement. Distal neurovascular exam is intact. Of note her medial thighs and groin remain very and excoriated. She remains with a bruising discoloration to the posterior region of both legs. Visit Vitals Temp 98.2 F (36.8 C) (Temporal) Ht 1.626 m (5' 4 ) Wt 105.2 kg (232 lb) BMI 39.82 kg/m Diagnostic study/interpretation: Plain films were obtained today and reveal a cemented total hip arthroplasty in good position and alignment without evidence of implant loosening or migration as compared to the immediate postop film. Cable and plate in good position with no migration compared to post op films. The fracture is difficult to assess within the metal but there are no signs of displacement, nonunion, or further fracture. Assessment/Plan: 6 week postop ANGELIQUE via anterolateral approach. -Explained to Cuate the importance of communicating with providers her needs. If there is issue with pharmacy filling meds, it is important that she let us know so that this can be followed up on and she does not go without. -Explained to Cuate the need to continue follow up with Dr. Moreno until yeast infection is controlled/resolved. She demonstrated verbal understanding of this. -Dental prophylaxis was reviewed. -We will advance weightbearing today- pt will be PWB x 2 weeks. This was demonstrated and explained. Okay to advance slowly from global hip precautions at this time. -Discussed reasonable expectations for activity progression and what to expect from this hip in the coming post operative period. Encouraged Cuate to continue pressure offloading efforts of the buttocks. -Communication was sent to Dr. Gomez and Dr. Moreno to make them aware of medications not received. Cuate was encouraged to call both of their offices to obtain adequate follow up. -We will otherwise plan for follow up in 2 weeks for radiological and clinical evaluation unless an earlier need should arise. At this time we will ensure that Cuate is on the appropriate POC for both the hip and other incidental findings. Can discuss options for PT in future at that time. All pertinant portions of the clinical technical sales support manager documentation was reviewed. Paige Damon I have reviewed the findings of the clinical technical sales support manager and agree with their assessment. Paige Damon Ortho Nurse - Established Patient Intake Room#: 6 Patient is an 83 year old female who arrives for 6 week postop (01/11/24) left ANGELIQUE-AL. Patient is experiencing 8/10 in pain while at rest and 8/10 pain while active/weightbearing. Last visit visit on 02/02/24 she was advised to continue DVT prophylaxis as prescribed and is still using Eliquis but has not been wearing her JOSAFAT hose. She was advised to use TDWB for the next 3 weeks. Patient was encouraged to keep pressure off wound. Date: 02/23/2024 2:58 PM Patient: Cuate Goodman MR#: [id number] : 1940 Age: 83 y.o. Referring Physician: Self, Self Insurance: Payor: MEDICARE AETNA HMO OR PPO / Plan: MEDICARE AETNA PPO / Product Type: *No Product type* / No chief complaint on file. There were no vitals taken for this visit. Pain Recent Labs Lab Results Component Value Date CRP 22.8 (H) 02/11/2024 Lab Results Component Value Date SEDRATE 75 (H) 02/08/2024 Lab Results Component Value Date WBC 5.0 02/11/2024 HGB 10.7 (L) 02/11/2024 HCT 31.9 (L) 02/11/2024 PLATELET 368 02/11/2024 MCV 96.1 02/11/2024 History Past Medical History: Diagnosis Date Aortic aneurysm Arthritis Deep vein thrombosis (DVT) GERD (gastroesophageal reflux disease) H/O unilateral nephrectomy per pt Past Surgical History: Procedure Laterality Date ARTHROPLASTY HIP TOTAL Left 01/11/2024 Laterality: Left; Surgeon: Erik Heredia MD; Location: [facility] OR NEPHRECTOMY Right 1978 CHOLECYSTECTOMY HIP REPLACEMENT Right HYSTERECTOMY KNEE REPLACEMENT Bilateral left x 2 LITHOTRIPSY multiple Family History: Her family history is not on file. Social History: Her reports that she has never smoked. She has never used smokeless tobacco. She reports that she does not drink alcohol and does not use drugs. Outpatient Medications Prior to Visit Medication Sig Dispense Refill Acetaminophen 325 MG tablet Take 2 tablets by mouth every 4 hours as needed for Mild Pain. 50 tablet 1 Allopurinol 100 MG tablet Take 1 tablet by mouth daily. Cholecalciferol (Vitamin D-3) 25 MCG (1000 UT) capsule Take by mouth. cyanocobalamin 1000 MCG tablet Take 5 tablets by mouth. Docusate 100 MG capsule Take 1 capsule by mouth 2 times daily. 60 capsule 0 Eliquis 5 MG tablet Take 1 tablet by mouth every 12 hours. ferrous sulfate 325 (65 Fe) MG tablet Take 1 tablet by mouth daily. 90 tablet 0 hydroCODone-acetaminophen 5-325 MG tablet Take 1-2 tablets by mouth every 6 hours as needed for up to 7 days. Do not take over 4000mg acetaminophen daily. 30 tablet 0 magnesium oxide 400 (240 Mg) MG Take 1 tablet by mouth 2 times daily. Multiple Vitamin (multivitamin) tablet Take 1 tablet by mouth daily. omeprazole [address] capsule 1 capsule daily. qam tolterodine 4 MG Cap SR 24HR Take 1 capsule by mouth daily. 30 capsule 0 No facility-administered medications prior to visit. Current Outpatient Medications: Acetaminophen 325 MG tablet, Take 2 tablets by mouth every 4 hours as needed for Mild Pain., Disp: 50 tablet, Rfl: 1 Allopurinol 100 MG tablet, Take 1 tablet by mouth daily., Disp: , Rfl: Cholecalciferol (Vitamin D-3) 25 MCG (1000 UT) capsule, Take by mouth., Disp: , Rfl: cyanocobalamin 1000 MCG tablet, Take 5 tablets by mouth., Disp: , Rfl: Docusate 100 MG capsule, Take 1 capsule by mouth 2 times daily., Disp: 60 capsule, Rfl: 0 Eliquis 5 MG tablet, Take 1 tablet by mouth every 12 hours., Disp: , Rfl: ferrous sulfate 325 (65 Fe) MG tablet, Take 1 tablet by mouth daily., Disp: 90 tablet, Rfl: 0 hydroCODone-acetaminophen 5-325 MG tablet, Take 1-2 tablets by mouth every 6 hours as needed for up to 7 days. Do not take over 4000mg acetaminophen daily., Disp: 30 tablet, Rfl: 0 magnesium oxide 400 (240 Mg) MG, Take 1 tablet by mouth 2 times daily., Disp: , Rfl: Multiple Vitamin (multivitamin) tablet, Take 1 tablet by mouth daily., Disp: , Rfl: omeprazole [address] capsule, 1 capsule daily. qam, Disp: , Rfl: tolterodine 4 MG Cap SR 24HR, Take 1 capsule by mouth daily., Disp: 30 capsule, Rfl: 0 Allergies: She is allergic to morphine, oxycodone, and penicillins. documented in this encounter [facility] 02-11-2024 Hospital course Narrative Images from the original note were not included. Discharge Summary Name: Cuate Goodman Age: 83 y.o. Birthday: 1940 Admit Date: 01/19/2024 2:23 PM Discharge Date: 02/11/24 Discharge Unit: Swing bed Time spent: 35 minutes Discharge plan: Condition upon discharge: Stable Activity: As tolerated Diet: Heart healthy diet Followup: PCP Admission Information Admitting Physician: Mohan Gomez MD Discharge Information Discharge Physician: Rebecca Problem List Active Hospital Problems Diagnosis S/P total left hip arthroplasty H/O unilateral nephrectomy Resolved Hospital Problems No resolved problems to display. Brief Summary of Hospital Course for Discharge Summary: 83 y.o. 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 1) Severe left hip arthritis s/p total hip arthroplasty PT/OT Continue with eliquis Continue with flexeril Continue with norco PRN Continue with senokot PRN Continue with tramadol PRN Encourage compliance with PT/OT. Improved. 2) Chronic normocytic anemia H and H 9.8 -> 9.5 -> 10.7 -> 10.0 -> 10.1 -> 9.8 -> 10.3 -> 10.6 -> 10.0 -> 10.3 -> 10.0 -> 10.6 -> 10.5 -> 10.7 -> 10.4 -> 10.1 -> 10.5 -> 10.4 -> 11.4 -> 10.7 and 29.2 -> 27.7 -> 31.8 -> 29.1 -> 29.3 -> 29.4 -> 29.0 -> 30.7 -> 31.3 -> >29.3 -> 29.9 -> 29.3 -> 31.4 -> 31.1 -> 31.8 -> 30.8 -> 29.6 -> 31.7 -> >30.8 -> 34.2 -> 31.9 Fe 29, TIBC 144, transferrin 20 Continue with iron Serial CBC 3) Gout Currently on allopurinol 4) GERD Currently on protonix. 5) Diarrhea Probably viral C. Diff is negative GI panel is negative. Workup is negative to-date Supportive care. Monitor for hypotension Monitor for hypokalemia Improved. 6) Cellulitis Antibiotic therapy will be given especially in the setting of underlying hardware in the postop period to try to prevent any spread of superficial infection to deeper areas of hardware CRP 58.3 -> 33.6 -> 28.4 -> 30.5 -> 28.9 -> 25.8 -> 26.1 -> 21.4-> 26.3 -> 21.9 -> 22.7 -> >19.6 -> 21.2 -> 22.8, stable. Finished a course of linezolid Finished a course of bactrobran Finished a course of bactrim DS BID. Continue with nystatin cream Encourage PO intake. Followed by ID 7) HTN SBP 120/90s Continue with lisinopril. 8) Mild oral thrush Nystatin swish and swallow, continue symptomatic treatment of lip dryness 9) Urinary incontinence UA is bland. Supportive care 10) Medial bilateral thigh wounds, yeast ID patient now complains of an inner thigh wound that appears to be due to skin rubbing and a fungal infection Continue with clotrimazole/steroid cream as well as fluconazole as there is a yeast component. Continue to keep area dry and clean Followed by ID 11) Dispo: Discharged today. Outpatient followup. Summary of last selected lab results and date obtained: Lab Results Component Value Date WBC 5.0 02/11/2024 HGB 10.7 (L) 02/11/2024 HCT 31.9 (L) 02/11/2024 PLATELET 368 02/11/2024 MCV 96.1 02/11/2024 Lab Results Component Value Date SODIUM 135 (L) 02/11/2024 POTASSIUM 4.5 02/11/2024 CHLORIDE 104 02/11/2024 CO2 28 02/11/2024 BUN 16 02/11/2024 CREATSERUM 0.80 02/11/2024 GLUCOSE 98 02/11/2024 Lab Results Component Value Date ALT 13 01/31/2024 AST 26 01/31/2024 ALKPHOS 107 01/31/2024 BILITOTAL 0.2 01/31/2024 BILIDIRECT 0.2 01/31/2024 Brief Summary of Labs for Discharge Summary: Discharge Orders Activity as tolerated Diet - Regular Call MD for: temperature > 100.4 Call MD for: persistent nausea or vomiting Call MD for: severe uncontrolled pain Call MD for: persistent dizziness or light-headedness Call MD for: extreme fatigue Current Outpatient Meds: Medication List for when you go home START taking these medications Morning Afternoon Evening Bedtime As Needed ferrous sulfate 325 (65 Fe) MG TABS Take 1 tablet by mouth daily. Last time this was given: 325 mg on February 11, 2024 8:05 AM CONTINUE taking these medications Morning Afternoon Evening Bedtime As Needed Acetaminophen 325 MG tablet Take 2 tablets by mouth every 4 hours as needed for Mild Pain. Commonly known as: TYLENOL Last time this was given: 650 mg on February 07, 2024 9:08 AM Allopurinol 100 MG TABS Take 1 tablet by mouth daily. Commonly known as: ZYLOPRIM Last time this was given: 100 mg on February 11, 2024 8:06 AM cyanocobalamin 1000 MCG TABS Take 5 tablets by mouth. Commonly known as: VITAMIN B12 Docusate 100 MG CAPS Take 1 capsule by mouth 2 times daily. Commonly known as: COLACE Last time this was given: 100 mg on February 10, 2024 8:42 AM Eliquis 5 MG TABS Take 1 tablet by mouth every 12 hours. Last time this was given: 5 mg on February 11, 2024 8:05 AM Generic drug: apixaban hydroCODone-acetaminophen 5-325 MG TABS Take 1-2 tablets by mouth every 6 hours as needed for up to 7 days. Do not take over 4000mg acetaminophen daily. Commonly known as: NORCO For diagnoses: Acute postoperative pain of left hip Last time this was given: 1 tablet on February 11, 2024 12:52 PM Next dose may be taken after 7pm this evening. magnesium oxide 400 (240 Mg) MG Take 1 tablet by mouth 2 times daily. Commonly known as: MAG-OX multivitamin TABS Take 1 tablet by mouth daily. Last time this was given: 1 tablet on February 11, 2024 8:06 AM omeprazole [address] capsule 1 capsule daily. qam Commonly known as: PRILOSEC tolterodine 4 MG cap XR Take 1 capsule by mouth daily. Commonly known as: DETROL LA Last time this was given: 4 mg on February 11, 2024 8:05 AM Vitamin D-3 25 MCG (1000 UT) CAPS Take by mouth. Follow-up: No follow-up provider specified. Upcoming Appointments (up to five)-[facility] appointments for [facility] outpatient clinics or diagnostic testing locations are not displayed below Provider Department Dept Phone 02/21/2024 8:45 AM Janet Moreno [facility] [phone] 02/23/2024 3:00 PM Paige Damon [facility] [phone] documented in this encounter [facility] 02-11-2024 Miscellaneous Notes Patient discharged with all belongings via wheelchair by staff to private residence. Warp Hanger provided patient with AVS. Warp Hanger educated patient on entire AVS, including but not limited to, follow-up appointments, prescriptions, home medications (new, continued, and stopped), next med dose due date and times, discharge activity and diet, and discharge education based on diagnoses. Patient verbalized understanding of all AVS education provided by automobile service writer. Problem: Adult Inpatient Plan of Care Goal: Plan of Care Review Outcome: Progressing Goal: Patient-Specific Goal (Individualized) Outcome: Progressing Goal: Absence of Hospital-Acquired Illness or Injury Outcome: Progressing Goal: Optimal Comfort and Wellbeing Outcome: Progressing Goal: Readiness for Transition of Care Outcome: Progressing Problem: Fall Injury Risk Goal: Fall/Trauma/Injury Risk: Absence of Trauma/Injury/Falls Description: Patient will demonstrate the desired outcomes. Outcome: Progressing Goal: Knowledge of risk factors/behavior modification Description: Knowledge of risk factors/behavior modification for fall/injury prevention Outcome: Progressing Problem: Pain Acute Goal: Optimal Pain Control and Function Outcome: Progressing Problem: Self-Care Deficit Goal: Improved Ability to Complete Activities of Daily Living Outcome: Progressing Problem: Skin Injury Risk Increased Goal: Skin Health and Integrity Outcome: Progressing Problem: Mobility Impairment Goal: Optimal Mobility Outcome: Progressing Problem: Infection Goal: Absence of Infection Signs and Symptoms Outcome: Progressing Spoke with wound. Per order we were to wait til wound consult was completed. They agree that the lotrisone cream should be used on groin wound. Problem: Adult Inpatient Plan of Care Goal: Plan of Care Review Outcome: Progressing Goal: Patient-Specific Goal (Individualized) Outcome: Progressing Goal: Absence of Hospital-Acquired Illness or Injury Outcome: Progressing Goal: Optimal Comfort and Wellbeing Outcome: Progressing Goal: Readiness for Transition of Care Outcome: Progressing Problem: Fall Injury Risk Goal: Fall/Trauma/Injury Risk: Absence of Trauma/Injury/Falls Description: Patient will demonstrate the desired outcomes. Outcome: Progressing Goal: Knowledge of risk factors/behavior modification Description: Knowledge of risk factors/behavior modification for fall/injury prevention Outcome: Progressing Problem: Pain Acute Goal: Optimal Pain Control and Function Outcome: Progressing Problem: Self-Care Deficit Goal: Improved Ability to Complete Activities of Daily Living Outcome: Progressing Problem: Skin Injury Risk Increased Goal: Skin Health and Integrity Outcome: Progressing Problem: Mobility Impairment Goal: Optimal Mobility Outcome: Progressing Problem: Infection Goal: Absence of Infection Signs and Symptoms Outcome: Progressing Problem: Adult Inpatient Plan of Care Goal: Plan of Care Review Outcome: Progressing Goal: Patient-Specific Goal (Individualized) Outcome: Progressing Goal: Absence of Hospital-Acquired Illness or Injury Outcome: Progressing Goal: Optimal Comfort and Wellbeing Outcome: Progressing Goal: Readiness for Transition of Care Outcome: Progressing Problem: Fall Injury Risk Goal: Fall/Trauma/Injury Risk: Absence of Trauma/Injury/Falls Description: Patient will demonstrate the desired outcomes. Outcome: Progressing Goal: Knowledge of risk factors/behavior modification Description: Knowledge of risk factors/behavior modification for fall/injury prevention Outcome: Progressing Problem: Pain Acute Goal: Optimal Pain Control and Function Outcome: Progressing Problem: Self-Care Deficit Goal: Improved Ability to Complete Activities of Daily Living Outcome: Progressing Problem: Skin Injury Risk Increased Goal: Skin Health and Integrity Outcome: Progressing Problem: Mobility Impairment Goal: Optimal Mobility Outcome: Progressing Problem: Infection Goal: Absence of Infection Signs and Symptoms Outcome: Progressing Problem: Adult Inpatient Plan of Care Goal: Plan of Care Review Outcome: Progressing Goal: Patient-Specific Goal (Individualized) Outcome: Progressing Goal: Absence of Hospital-Acquired Illness or Injury Outcome: Progressing Goal: Optimal Comfort and Wellbeing Outcome: Progressing Goal: Readiness for Transition of Care Outcome: Progressing Weekly Physical Therapy Swing Bed Conference Note 02/01/2024 - 02/08/2024 Swing Bed Goals: Patient will demonstrate bed mobility, including rolling and repositioning with modified independence to maximize independence and minimize caregiver burden for discharge home/ the next level of care, and to minimize risk of skin breakdown. CGA to Min assist Patient will perform sit <-> stand and stand pivot transfers with modified independence and LRAD to minimize risk of falling and maximize independence for return to home/advancing to the next level of care. Supervision & 4WW Patient will ambulate at least 150' with Supervision and LRAD for household/short community distance and to promote independence for return to home/the next level of care. 200 feet Supervision & FWW Patient will ambulate 50' with two turns with modified independence using LRAD for return to home and community in a way to maximize independence for functional gait and to minimize risk of falling, demonstrating appropriate use of walker in turns, and no losses of balance. Supervision & FWW Patient will ambulate at least 20' on unlevel/uneven surfaces for return to ambulation beyond household mobility, with supervision to touching assist & LRAD. NT Patient will ascend and descend 5 stairs with supervision for negotiation within the home and community. NT Patient will ascend/descend 1 curb-type step with modified independence and LRAD assistance in order to negotiate with caregivers in the community setting. CGA & FWW Patient will demonstrate ability to flower buncher or picker object from the floor with supervision and LRAD in order to promote independence in the home and demonstrate functional balance improvements in the rehabilitation program. Supervision with group care worker & FWW Patient will perform car transfer with supervision and LRAD for community re-entry at discharge. Supervision Patient will perform written HEP independently in order to continue the gains of the physical therapy program this stay. Supervision The patient has demonstrated small functional improvement with increasing distance & reduced assistance/cues. The patient would continue to benefit from physical therapy interventions but is likely nearing readiness for discharge to next level of care. Erik Julio PT Problem: Adult Inpatient Plan of Care Goal: Plan of Care Review Outcome: Progressing Goal: Patient-Specific Goal (Individualized) Outcome: Progressing Goal: Absence of Hospital-Acquired Illness or Injury Outcome: Progressing Goal: Optimal Comfort and Wellbeing Outcome: Progressing Goal: Readiness for Transition of Care Outcome: Progressing Problem: Fall Injury Risk Goal: Fall/Trauma/Injury Risk: Absence of Trauma/Injury/Falls Description: Patient will demonstrate the desired outcomes. Outcome: Progressing Goal: Knowledge of risk factors/behavior modification Description: Knowledge of risk factors/behavior modification for fall/injury prevention Outcome: Progressing Problem: Pain Acute Goal: Optimal Pain Control and Function Outcome: Progressing Problem: Self-Care Deficit Goal: Improved Ability to Complete Activities of Daily Living Outcome: Progressing Problem: Skin Injury Risk Increased Goal: Skin Health and Integrity Outcome: Progressing Problem: Mobility Impairment Goal: Optimal Mobility Outcome: Progressing Problem: Infection Goal: Absence of Infection Signs and Symptoms Outcome: Progressing Problem: Adult Inpatient Plan of Care Goal: Plan of Care Review Outcome: Progressing Goal: Patient-Specific Goal (Individualized) Outcome: Progressing Goal: Absence of Hospital-Acquired Illness or Injury Outcome: Progressing Goal: Optimal Comfort and Wellbeing Outcome: Progressing Goal: Readiness for Transition of Care Outcome: Progressing Problem: Fall Injury Risk Goal: Fall/Trauma/Injury Risk: Absence of Trauma/Injury/Falls Description: Patient will demonstrate the desired outcomes. Outcome: Progressing Goal: Knowledge of risk factors/behavior modification Description: Knowledge of risk factors/behavior modification for fall/injury prevention Outcome: Progressing Problem: Pain Acute Goal: Optimal Pain Control and Function Outcome: Progressing Problem: Self-Care Deficit Goal: Improved Ability to Complete Activities of Daily Living Outcome: Progressing Problem: Skin Injury Risk Increased Goal: Skin Health and Integrity Outcome: Progressing Problem: Mobility Impairment Goal: Optimal Mobility Outcome: Progressing Problem: Infection Goal: Absence of Infection Signs and Symptoms Outcome: Progressing Problem: Adult Inpatient Plan of Care Goal: Plan of Care Review Outcome: Progressing Goal: Patient-Specific Goal (Individualized) Outcome: Progressing Goal: Absence of Hospital-Acquired Illness or Injury Outcome: Progressing Goal: Optimal Comfort and Wellbeing Outcome: Progressing Goal: Readiness for Transition of Care Outcome: Progressing Problem: Fall Injury Risk Goal: Fall/Trauma/Injury Risk: Absence of Trauma/Injury/Falls Description: Patient will demonstrate the desired outcomes. Outcome: Progressing Goal: Knowledge of risk factors/behavior modification Description: Knowledge of risk factors/behavior modification for fall/injury prevention Outcome: Progressing Problem: Pain Acute Goal: Optimal Pain Control and Function Outcome: Progressing Problem: Self-Care Deficit Goal: Improved Ability to Complete Activities of Daily Living Outcome: Progressing Problem: Skin Injury Risk Increased Goal: Skin Health and Integrity Outcome: Progressing Problem: Mobility Impairment Goal: Optimal Mobility Outcome: Progressing Problem: Infection Goal: Absence of Infection Signs and Symptoms Outcome: Progressing Problem: Adult Inpatient Plan of Care Goal: Plan of Care Review Outcome: Progressing Goal: Patient-Specific Goal (Individualized) Outcome: Progressing Goal: Absence of Hospital-Acquired Illness or Injury Outcome: Progressing Goal: Optimal Comfort and Wellbeing Outcome: Progressing Goal: Readiness for Transition of Care Outcome: Progressing Problem: Fall Injury Risk Goal: Fall/Trauma/Injury Risk: Absence of Trauma/Injury/Falls Description: Patient will demonstrate the desired outcomes. Outcome: Progressing Goal: Knowledge of risk factors/behavior modification Description: Knowledge of risk factors/behavior modification for fall/injury prevention Outcome: Progressing Problem: Pain Acute Goal: Optimal Pain Control and Function Outcome: Progressing Problem: Self-Care Deficit Goal: Improved Ability to Complete Activities of Daily Living Outcome: Progressing Problem: Skin Injury Risk Increased Goal: Skin Health and Integrity Outcome: Progressing Problem: Mobility Impairment Goal: Optimal Mobility Outcome: Progressing Problem: Infection Goal: Absence of Infection Signs and Symptoms Outcome: Progressing Problem: Adult Inpatient Plan of Care Goal: Plan of Care Review Outcome: Progressing Goal: Patient-Specific Goal (Individualized) Outcome: Progressing Goal: Absence of Hospital-Acquired Illness or Injury Outcome: Progressing Goal: Optimal Comfort and Wellbeing Outcome: Progressing Goal: Readiness for Transition of Care Outcome: Progressing Problem: Fall Injury Risk Goal: Fall/Trauma/Injury Risk: Absence of Trauma/Injury/Falls Description: Patient will demonstrate the desired outcomes. Outcome: Progressing Goal: Knowledge of risk factors/behavior modification Description: Knowledge of risk factors/behavior modification for fall/injury prevention Outcome: Progressing Problem: Pain Acute Goal: Optimal Pain Control and Function Outcome: Progressing Problem: Self-Care Deficit Goal: Improved Ability to Complete Activities of Daily Living Outcome: Progressing Problem: Skin Injury Risk Increased Goal: Skin Health and Integrity Outcome: Progressing Problem: Mobility Impairment Goal: Optimal Mobility Outcome: Progressing Problem: Infection Goal: Absence of Infection Signs and Symptoms Outcome: Progressing Problem: Adult Inpatient Plan of Care Goal: Plan of Care Review Outcome: Progressing Goal: Patient-Specific Goal (Individualized) Outcome: Progressing Goal: Absence of Hospital-Acquired Illness or Injury Outcome: Progressing Goal: Optimal Comfort and Wellbeing Outcome: Progressing Goal: Readiness for Transition of Care Outcome: Progressing Problem: Fall Injury Risk Goal: Fall/Trauma/Injury Risk: Absence of Trauma/Injury/Falls Description: Patient will demonstrate the desired outcomes. Outcome: Progressing Goal: Knowledge of risk factors/behavior modification Description: Knowledge of risk factors/behavior modification for fall/injury prevention Outcome: Progressing Problem: Pain Acute Goal: Optimal Pain Control and Function Outcome: Progressing Problem: Self-Care Deficit Goal: Improved Ability to Complete Activities of Daily Living Outcome: Progressing Problem: Skin Injury Risk Increased Goal: Skin Health and Integrity Outcome: Progressing Problem: Mobility Impairment Goal: Optimal Mobility Outcome: Progressing Problem: Infection Goal: Absence of Infection Signs and Symptoms Outcome: Progressing Patient returned from Doctor appointment in stable condition. States no new orders. Returns with no paper work. Patient states they will send something over to us. Problem: Adult Inpatient Plan of Care Goal: Plan of Care Review Outcome: Progressing Goal: Patient-Specific Goal (Individualized) Outcome: Progressing Goal: Absence of Hospital-Acquired Illness or Injury Outcome: Progressing Goal: Optimal Comfort and Wellbeing Outcome: Progressing Goal: Readiness for Transition of Care Outcome: Progressing Problem: Fall Injury Risk Goal: Fall/Trauma/Injury Risk: Absence of Trauma/Injury/Falls Description: Patient will demonstrate the desired outcomes. Outcome: Progressing Goal: Knowledge of risk factors/behavior modification Description: Knowledge of risk factors/behavior modification for fall/injury prevention Outcome: Progressing Problem: Pain Acute Goal: Optimal Pain Control and Function Outcome: Progressing Problem: Self-Care Deficit Goal: Improved Ability to Complete Activities of Daily Living Outcome: Progressing Problem: Skin Injury Risk Increased Goal: Skin Health and Integrity Outcome: Progressing Problem: Mobility Impairment Goal: Optimal Mobility Outcome: Progressing Problem: Infection Goal: Absence of Infection Signs and Symptoms Outcome: Progressing Patient is KEE with [facility] for Appointment with Paige Damon. Left in stable condition. Problem: Adult Inpatient Plan of Care Goal: Plan of Care Review Outcome: Progressing Goal: Patient-Specific Goal (Individualized) Outcome: Progressing Goal: Absence of Hospital-Acquired Illness or Injury Outcome: Progressing Goal: Optimal Comfort and Wellbeing Outcome: Progressing Goal: Readiness for Transition of Care Outcome: Progressing Problem: Fall Injury Risk Goal: Fall/Trauma/Injury Risk: Absence of Trauma/Injury/Falls Description: Patient will demonstrate the desired outcomes. Outcome: Progressing Goal: Knowledge of risk factors/behavior modification Description: Knowledge of risk factors/behavior modification for fall/injury prevention Outcome: Progressing Problem: Pain Acute Goal: Optimal Pain Control and Function Outcome: Progressing Problem: Self-Care Deficit Goal: Improved Ability to Complete Activities of Daily Living Outcome: Progressing Problem: Skin Injury Risk Increased Goal: Skin Health and Integrity Outcome: Progressing Problem: Mobility Impairment Goal: Optimal Mobility Outcome: Progressing Problem: Infection Goal: Absence of Infection Signs and Symptoms Outcome: Progressing Weekly Physical Therapy Swing Bed Conference Note 01/25/2024 - 02/01/2024 Swing Bed Goals: Patient will demonstrate bed mobility, including rolling and repositioning with modified independence to maximize independence and minimize caregiver burden for discharge home/ the next level of care, and to minimize risk of skin breakdown. CGA to Min assist Patient will perform sit <-> stand and stand pivot transfers with modified independence and LRAD to minimize risk of falling and maximize independence for return to home/advancing to the next level of care. SBA to Min assist & FWW Patient will ambulate at least 150' with Supervision and LRAD for household/short community distance and to promote independence for return to home/the next level of care. 70 feet SBA to CGA & FWW Patient will ambulate 50' with two turns with modified independence using LRAD for return to home and community in a way to maximize independence for functional gait and to minimize risk of falling, demonstrating appropriate use of walker in turns, and no losses of balance. SBA to CGA & FWW Patient will ambulate at least 20' on unlevel/uneven surfaces for return to ambulation beyond household mobility, with supervision to touching assist & LRAD. NT Patient will ascend and descend 5 stairs with supervision for negotiation within the home and community. NT Patient will ascend/descend 1 curb-type step with modified independence and LRAD assistance in order to negotiate with caregivers in the community setting. NT Patient will demonstrate ability to flower buncher or picker object from the floor with supervision and LRAD in order to promote independence in the home and demonstrate functional balance improvements in the rehabilitation program. SBA to CGA with group care worker & FWW Patient will perform car transfer with supervision and LRAD for community re-entry at discharge. Mod assist Patient will perform written HEP independently in order to continue the gains of the physical therapy program this stay. Supervision The patient has demonstrated gradual progress toward goals with slow improvement in functional mobility. However, patient continues to have intermittent difficulty maintaining Left LE TTWB. She has not been able to safely attempt step ascend/descend. The patient would benefit from additional physical therapy interventions to promote additional improvement in functional mobility. Erik Julio PT [facility] will be picking up pt at 10:15 am 02/01 to transport her fellow up to Paige [place] office. Dr Gomez rounding on patient. Problem: Adult Inpatient Plan of Care Goal: Plan of Care Review Outcome: Progressing Goal: Patient-Specific Goal (Individualized) Outcome: Progressing Goal: Absence of Hospital-Acquired Illness or Injury Outcome: Progressing Goal: Optimal Comfort and Wellbeing Outcome: Progressing Goal: Readiness for Transition of Care Outcome: Progressing Problem: Fall Injury Risk Goal: Fall/Trauma/Injury Risk: Absence of Trauma/Injury/Falls Description: Patient will demonstrate the desired outcomes. Outcome: Progressing Goal: Knowledge of risk factors/behavior modification Description: Knowledge of risk factors/behavior modification for fall/injury prevention Outcome: Progressing Problem: Pain Acute Goal: Optimal Pain Control and Function Outcome: Progressing Problem: Self-Care Deficit Goal: Improved Ability to Complete Activities of Daily Living Outcome: Progressing Problem: Skin Injury Risk Increased Goal: Skin Health and Integrity Outcome: Progressing Problem: Mobility Impairment Goal: Optimal Mobility Outcome: Progressing Problem: Infection Goal: Absence of Infection Signs and Symptoms Outcome: Progressing Problem: Adult Inpatient Plan of Care Goal: Plan of Care Review Outcome: Progressing Goal: Patient-Specific Goal (Individualized) Outcome: Progressing Goal: Absence of Hospital-Acquired Illness or Injury Outcome: Progressing Goal: Optimal Comfort and Wellbeing Outcome: Progressing Goal: Readiness for Transition of Care Outcome: Progressing Problem: Fall Injury Risk Goal: Fall/Trauma/Injury Risk: Absence of Trauma/Injury/Falls Description: Patient will demonstrate the desired outcomes. Outcome: Progressing Goal: Knowledge of risk factors/behavior modification Description: Knowledge of risk factors/behavior modification for fall/injury prevention Outcome: Progressing Problem: Pain Acute Goal: Optimal Pain Control and Function Outcome: Progressing Problem: Self-Care Deficit Goal: Improved Ability to Complete Activities of Daily Living Outcome: Progressing Problem: Skin Injury Risk Increased Goal: Skin Health and Integrity Outcome: Progressing Problem: Mobility Impairment Goal: Optimal Mobility Outcome: Progressing Problem: Infection Goal: Absence of Infection Signs and Symptoms Outcome: Progressing Assisted patient to stand at chair to adjust clothing. New ice applied. Patient positioned to preference with support for LLE. Avril wraps applied to bilateral LE's with SCD's. Pump activated. Patient reports her pain as throbbing but denies offer of pain medication. Wants to wait until closer to therapy at 1:45 p.m. Rounding completed with Dr. Gomez. Patient up in recliner with legs elevated. Physician reviewed plan of care with patient. Patient is to follow up with Paige Damon CNP, on Wednesday. Questions answered by the physician. Call light in reach. Chair exit alarm on. Problem: Adult Inpatient Plan of Care Goal: Plan of Care Review Outcome: Progressing Goal: Patient-Specific Goal (Individualized) Outcome: Progressing Goal: Absence of Hospital-Acquired Illness or Injury Outcome: Progressing Goal: Optimal Comfort and Wellbeing Outcome: Progressing Goal: Readiness for Transition of Care Outcome: Progressing Problem: Fall Injury Risk Goal: Fall/Trauma/Injury Risk: Absence of Trauma/Injury/Falls Description: Patient will demonstrate the desired outcomes. Outcome: Progressing Goal: Knowledge of risk factors/behavior modification Description: Knowledge of risk factors/behavior modification for fall/injury prevention Outcome: Progressing Problem: Pain Acute Goal: Optimal Pain Control and Function Outcome: Progressing Problem: Self-Care Deficit Goal: Improved Ability to Complete Activities of Daily Living Outcome: Progressing Problem: Skin Injury Risk Increased Goal: Skin Health and Integrity Outcome: Progressing Problem: Mobility Impairment Goal: Optimal Mobility Outcome: Progressing Problem: Infection Goal: Absence of Infection Signs and Symptoms Outcome: Progressing Problem: Adult Inpatient Plan of Care Goal: Plan of Care Review Outcome: Progressing Goal: Patient-Specific Goal (Individualized) Outcome: Progressing Goal: Absence of Hospital-Acquired Illness or Injury Outcome: Progressing Goal: Optimal Comfort and Wellbeing Outcome: Progressing Goal: Readiness for Transition of Care Outcome: Progressing Problem: Fall Injury Risk Goal: Fall/Trauma/Injury Risk: Absence of Trauma/Injury/Falls Description: Patient will demonstrate the desired outcomes. Outcome: Progressing Goal: Knowledge of risk factors/behavior modification Description: Knowledge of risk factors/behavior modification for fall/injury prevention Outcome: Progressing Problem: Pain Acute Goal: Optimal Pain Control and Function Outcome: Progressing Problem: Self-Care Deficit Goal: Improved Ability to Complete Activities of Daily Living Outcome: Progressing Problem: Skin Injury Risk Increased Goal: Skin Health and Integrity Outcome: Progressing Problem: Mobility Impairment Goal: Optimal Mobility Outcome: Progressing Problem: Infection Goal: Absence of Infection Signs and Symptoms Outcome: Progressing Problem: Adult Inpatient Plan of Care Goal: Plan of Care Review Outcome: Progressing Goal: Patient-Specific Goal (Individualized) Outcome: Progressing Goal: Absence of Hospital-Acquired Illness or Injury Outcome: Progressing Goal: Optimal Comfort and Wellbeing Outcome: Progressing Goal: Readiness for Transition of Care Outcome: Progressing Problem: Fall Injury Risk Goal: Fall/Trauma/Injury Risk: Absence of Trauma/Injury/Falls Description: Patient will demonstrate the desired outcomes. Outcome: Progressing Goal: Knowledge of risk factors/behavior modification Description: Knowledge of risk factors/behavior modification for fall/injury prevention Outcome: Progressing Problem: Pain Acute Goal: Optimal Pain Control and Function Outcome: Progressing Problem: Self-Care Deficit Goal: Improved Ability to Complete Activities of Daily Living Outcome: Progressing Problem: Skin Injury Risk Increased Goal: Skin Health and Integrity Outcome: Progressing Problem: Mobility Impairment Goal: Optimal Mobility Outcome: Progressing Problem: Infection Goal: Absence of Infection Signs and Symptoms Outcome: Progressing Problem: Adult Inpatient Plan of Care Goal: Plan of Care Review Outcome: Progressing Goal: Patient-Specific Goal (Individualized) Outcome: Progressing Goal: Absence of Hospital-Acquired Illness or Injury Outcome: Progressing Goal: Optimal Comfort and Wellbeing Outcome: Progressing Goal: Readiness for Transition of Care Outcome: Progressing Problem: Fall Injury Risk Goal: Fall/Trauma/Injury Risk: Absence of Trauma/Injury/Falls Description: Patient will demonstrate the desired outcomes. Outcome: Progressing Goal: Knowledge of risk factors/behavior modification Description: Knowledge of risk factors/behavior modification for fall/injury prevention Outcome: Progressing Problem: Pain Acute Goal: Optimal Pain Control and Function Outcome: Progressing Problem: Self-Care Deficit Goal: Improved Ability to Complete Activities of Daily Living Outcome: Progressing Problem: Skin Injury Risk Increased Goal: Skin Health and Integrity Outcome: Progressing Problem: Mobility Impairment Goal: Optimal Mobility Outcome: Progressing Problem: Infection Goal: Absence of Infection Signs and Symptoms Outcome: Progressing Pt assessment unchanged from prior assessment by this RN, unless otherwise charted in flowsheet. Pt assessment unchanged from prior assessment by this RN, unless otherwise charted in flowsheet. Problem: Adult Inpatient Plan of Care Goal: Plan of Care Review Outcome: Progressing Goal: Patient-Specific Goal (Individualized) Outcome: Progressing Goal: Absence of Hospital-Acquired Illness or Injury Outcome: Progressing Goal: Optimal Comfort and Wellbeing Outcome: Progressing Goal: Readiness for Transition of Care Outcome: Progressing Problem: Fall Injury Risk Goal: Fall/Trauma/Injury Risk: Absence of Trauma/Injury/Falls Description: Patient will demonstrate the desired outcomes. Outcome: Progressing Goal: Knowledge of risk factors/behavior modification Description: Knowledge of risk factors/behavior modification for fall/injury prevention Outcome: Progressing Problem: Pain Acute Goal: Optimal Pain Control and Function Outcome: Progressing Problem: Self-Care Deficit Goal: Improved Ability to Complete Activities of Daily Living Outcome: Progressing Problem: Skin Injury Risk Increased Goal: Skin Health and Integrity Outcome: Progressing Problem: Mobility Impairment Goal: Optimal Mobility Outcome: Progressing Problem: Infection Goal: Absence of Infection Signs and Symptoms Outcome: Progressing Problem: Adult Inpatient Plan of Care Goal: Plan of Care Review Outcome: Progressing Goal: Patient-Specific Goal (Individualized) Outcome: Progressing Goal: Absence of Hospital-Acquired Illness or Injury Outcome: Progressing Goal: Optimal Comfort and Wellbeing Outcome: Progressing Goal: Readiness for Transition of Care Outcome: Progressing Problem: Fall Injury Risk Goal: Fall/Trauma/Injury Risk: Absence of Trauma/Injury/Falls Description: Patient will demonstrate the desired outcomes. Outcome: Progressing Goal: Knowledge of risk factors/behavior modification Description: Knowledge of risk factors/behavior modification for fall/injury prevention Outcome: Progressing Problem: Pain Acute Goal: Optimal Pain Control and Function Outcome: Progressing Problem: Self-Care Deficit Goal: Improved Ability to Complete Activities of Daily Living Outcome: Progressing Problem: Skin Injury Risk Increased Goal: Skin Health and Integrity Outcome: Progressing Problem: Mobility Impairment Goal: Optimal Mobility Outcome: Progressing Problem: Infection Goal: Absence of Infection Signs and Symptoms Outcome: Progressing Problem: Adult Inpatient Plan of Care Goal: Plan of Care Review Outcome: Progressing Goal: Patient-Specific Goal (Individualized) Outcome: Progressing Goal: Absence of Hospital-Acquired Illness or Injury Outcome: Progressing Goal: Optimal Comfort and Wellbeing Outcome: Progressing Goal: Readiness for Transition of Care Outcome: Progressing Problem: Fall Injury Risk Goal: Fall/Trauma/Injury Risk: Absence of Trauma/Injury/Falls Description: Patient will demonstrate the desired outcomes. Outcome: Progressing Goal: Knowledge of risk factors/behavior modification Description: Knowledge of risk factors/behavior modification for fall/injury prevention Outcome: Progressing Problem: Pain Acute Goal: Optimal Pain Control and Function Outcome: Progressing Problem: Self-Care Deficit Goal: Improved Ability to Complete Activities of Daily Living Outcome: Progressing Problem: Skin Injury Risk Increased Goal: Skin Health and Integrity Outcome: Progressing Problem: Mobility Impairment Goal: Optimal Mobility Outcome: Progressing Problem: Infection Goal: Absence of Infection Signs and Symptoms Outcome: Progressing Problem: Adult Inpatient Plan of Care Goal: Plan of Care Review Outcome: Progressing Goal: Patient-Specific Goal (Individualized) Outcome: Progressing Goal: Absence of Hospital-Acquired Illness or Injury Outcome: Progressing Goal: Optimal Comfort and Wellbeing Outcome: Progressing Goal: Readiness for Transition of Care Outcome: Progressing Problem: Fall Injury Risk Goal: Fall/Trauma/Injury Risk: Absence of Trauma/Injury/Falls Description: Patient will demonstrate the desired outcomes. Outcome: Progressing Goal: Knowledge of risk factors/behavior modification Description: Knowledge of risk factors/behavior modification for fall/injury prevention Outcome: Progressing Problem: Pain Acute Goal: Optimal Pain Control and Function Outcome: Progressing Problem: Self-Care Deficit Goal: Improved Ability to Complete Activities of Daily Living Outcome: Progressing Problem: Skin Injury Risk Increased Goal: Skin Health and Integrity Outcome: Progressing Problem: Mobility Impairment Goal: Optimal Mobility Outcome: Progressing Problem: Infection Goal: Absence of Infection Signs and Symptoms Outcome: Progressing Ongoing supervision of OT POC and treatment assumed from JANN Welch/L at [facility]. JANN Travis/Karin 01/26/2024 Problem: Adult Inpatient Plan of Care Goal: Plan of Care Review Outcome: Progressing Goal: Patient-Specific Goal (Individualized) Outcome: Progressing Goal: Absence of Hospital-Acquired Illness or Injury Outcome: Progressing Goal: Optimal Comfort and Wellbeing Outcome: Progressing Goal: Readiness for Transition of Care Outcome: Progressing Problem: Fall Injury Risk Goal: Fall/Trauma/Injury Risk: Absence of Trauma/Injury/Falls Description: Patient will demonstrate the desired outcomes. Outcome: Progressing Goal: Knowledge of risk factors/behavior modification Description: Knowledge of risk factors/behavior modification for fall/injury prevention Outcome: Progressing Problem: Pain Acute Goal: Optimal Pain Control and Function Outcome: Progressing Problem: Self-Care Deficit Goal: Improved Ability to Complete Activities of Daily Living Outcome: Progressing Problem: Skin Injury Risk Increased Goal: Skin Health and Integrity Outcome: Progressing Problem: Mobility Impairment Goal: Optimal Mobility Outcome: Progressing Problem: Infection Goal: Absence of Infection Signs and Symptoms Outcome: Progressing Problem: Adult Inpatient Plan of Care Goal: Plan of Care Review Outcome: Progressing Goal: Patient-Specific Goal (Individualized) Outcome: Progressing Goal: Absence of Hospital-Acquired Illness or Injury Outcome: Progressing Goal: Optimal Comfort and Wellbeing Outcome: Progressing Goal: Readiness for Transition of Care Outcome: Progressing Problem: Fall Injury Risk Goal: Fall/Trauma/Injury Risk: Absence of Trauma/Injury/Falls Description: Patient will demonstrate the desired outcomes. Outcome: Progressing Goal: Knowledge of risk factors/behavior modification Description: Knowledge of risk factors/behavior modification for fall/injury prevention Outcome: Progressing Problem: Pain Acute Goal: Optimal Pain Control and Function Outcome: Progressing Problem: Self-Care Deficit Goal: Improved Ability to Complete Activities of Daily Living Outcome: Progressing Problem: Skin Injury Risk Increased Goal: Skin Health and Integrity Outcome: Progressing Problem: Mobility Impairment Goal: Optimal Mobility Outcome: Progressing Problem: Infection Goal: Absence of Infection Signs and Symptoms Outcome: Progressing Problem: Adult Inpatient Plan of Care Goal: Plan of Care Review Outcome: Progressing Goal: Patient-Specific Goal (Individualized) Outcome: Progressing Goal: Absence of Hospital-Acquired Illness or Injury Outcome: Progressing Goal: Optimal Comfort and Wellbeing Outcome: Progressing Goal: Readiness for Transition of Care Outcome: Progressing Problem: Fall Injury Risk Goal: Fall/Trauma/Injury Risk: Absence of Trauma/Injury/Falls Description: Patient will demonstrate the desired outcomes. Outcome: Progressing Goal: Knowledge of risk factors/behavior modification Description: Knowledge of risk factors/behavior modification for fall/injury prevention Outcome: Progressing Problem: Pain Acute Goal: Optimal Pain Control and Function Outcome: Progressing Problem: Self-Care Deficit Goal: Improved Ability to Complete Activities of Daily Living Outcome: Progressing Problem: Skin Injury Risk Increased Goal: Skin Health and Integrity Outcome: Progressing Problem: Mobility Impairment Goal: Optimal Mobility Outcome: Progressing Problem: Infection Goal: Absence of Infection Signs and Symptoms Outcome: Progressing Problem: Adult Inpatient Plan of Care Goal: Plan of Care Review Outcome: Progressing Goal: Optimal Comfort and Wellbeing Outcome: Progressing Problem: Fall Injury Risk Goal: Fall/Trauma/Injury Risk: Absence of Trauma/Injury/Falls Description: Patient will demonstrate the desired outcomes. Outcome: Progressing Problem: Pain Acute Goal: Optimal Pain Control and Function Outcome: Progressing Problem: Self-Care Deficit Goal: Improved Ability to Complete Activities of Daily Living Outcome: Progressing Problem: Mobility Impairment Goal: Optimal Mobility Outcome: Progressing Problem: Infection Goal: Absence of Infection Signs and Symptoms Outcome: Progressing Patient reports nausea and fatigue. Zofran administered as ordered and available. Assisted patient to bathroom. Passed gas. No BM. Patient reported lightheadedness. Cool wash cloth provided. Dry heaves. Patient stood and pivoted to recliner brought to bathroom door. Returned to reclined position. Patient complained of a sore spot on the back of her left calf. This RN observed the skin. No redness or breakdown noted. Legs were re-wrapped with avril wraps and SCD's applied. Medication held until nausea resolves. Call light in place. Chair alarm activated. Summary: AM Care Pt not feeling well, multiple loose stools. Pt declined getting dressed this morning. Pt fatigued, complaining of chills and being cold. PT sleeping in recliner, with call light in reach. Rn aware. Problem: Adult Inpatient Plan of Care Goal: Plan of Care Review Outcome: Progressing Goal: Patient-Specific Goal (Individualized) Outcome: Progressing Goal: Absence of Hospital-Acquired Illness or Injury Outcome: Progressing Goal: Optimal Comfort and Wellbeing Outcome: Progressing Goal: Readiness for Transition of Care Outcome: Progressing Problem: Fall Injury Risk Goal: Fall/Trauma/Injury Risk: Absence of Trauma/Injury/Falls Description: Patient will demonstrate the desired outcomes. Outcome: Progressing Goal: Knowledge of risk factors/behavior modification Description: Knowledge of risk factors/behavior modification for fall/injury prevention Outcome: Progressing Problem: Pain Acute Goal: Optimal Pain Control and Function Outcome: Progressing Problem: Self-Care Deficit Goal: Improved Ability to Complete Activities of Daily Living Outcome: Progressing Problem: Skin Injury Risk Increased Goal: Skin Health and Integrity Outcome: Progressing Problem: Mobility Impairment Goal: Optimal Mobility Outcome: Progressing Problem: Infection Goal: Absence of Infection Signs and Symptoms Outcome: Progressing Problem: Adult Inpatient Plan of Care Goal: Plan of Care Review Outcome: Progressing Goal: Optimal Comfort and Wellbeing Outcome: Progressing Problem: Fall Injury Risk Goal: Fall/Trauma/Injury Risk: Absence of Trauma/Injury/Falls Description: Patient will demonstrate the desired outcomes. Outcome: Progressing Problem: Pain Acute Goal: Optimal Pain Control and Function Outcome: Progressing Problem: Self-Care Deficit Goal: Improved Ability to Complete Activities of Daily Living Outcome: Progressing Problem: Mobility Impairment Goal: Optimal Mobility Outcome: Progressing Problem: Infection Goal: Absence of Infection Signs and Symptoms Outcome: Progressing Rounding completed with Dr. Gomez. Patient up in recliner with legs elevated. Physician reviewed chart and encouraged patient to continue with fluids. If symptoms of diarrhea or lightheadedness continue or recur, physician to be alerted by nursing. Call light in reach. Chair exit alarm on. Assisted patient to bathroom and back to chair. No symptoms of lightheadedness or dizziness. Denies any problems. Call light in reach. Chair exit alarm on. This RN called in to patient room by LAILA Howe. Patient sitting on commode. Lizabeth PT, standing beside patient. Patient is pale, respirations rapid. PT reports to this RN that patient ambulated in room then while returning to chair felt the need to have a BM, became anxious, barely made it to bathroom and became short of breath and dizzy. Blood pressure and O2 saturation taken. O2 88. BP elevated. 140/102. HR 113 Oxygen applied at 2L. Coached patient in slow breathing. Color returning. BP repeated. BP 134/89. HR 109. Respiratory rate slowing. 98% on 2L. Patient did have a very loose stool. After hygiene performed, patient was transferred to recliner at bathroom door. BP retaken after back to chair. 143/68. HR 87. O2 saturation at 96%. She rates her pain currently as 9/10. Patient was repositioned. She complains of slight nausea. Refused offer of Zofran. Requested Jello. Provided. Pain medication provided as ordered and available. Respirations 16. Call light in reach. Chair exit alarm on. Will continue to monitor for nausea, dizziness, pain, diarrhea. Physician informed. Problem: Adult Inpatient Plan of Care Goal: Plan of Care Review Outcome: Progressing Goal: Patient-Specific Goal (Individualized) Outcome: Progressing Goal: Absence of Hospital-Acquired Illness or Injury Outcome: Progressing Goal: Optimal Comfort and Wellbeing Outcome: Progressing Goal: Readiness for Transition of Care Outcome: Progressing Problem: Fall Injury Risk Goal: Fall/Trauma/Injury Risk: Absence of Trauma/Injury/Falls Description: Patient will demonstrate the desired outcomes. Outcome: Progressing Goal: Knowledge of risk factors/behavior modification Description: Knowledge of risk factors/behavior modification for fall/injury prevention Outcome: Progressing Problem: Pain Acute Goal: Optimal Pain Control and Function Outcome: Progressing Problem: Self-Care Deficit Goal: Improved Ability to Complete Activities of Daily Living Outcome: Progressing Problem: Skin Injury Risk Increased Goal: Skin Health and Integrity Outcome: Progressing Problem: Mobility Impairment Goal: Optimal Mobility Outcome: Progressing Problem: Infection Goal: Absence of Infection Signs and Symptoms Outcome: Progressing Report received from ALLY Gomez, retail shift manager. Patient up in recliner. Awake but drowsy. Call light in reach. Chair exit alarm on. Whiteboard updated. Patient denies needs at this time. Problem: Adult Inpatient Plan of Care Goal: Plan of Care Review Outcome: Progressing Goal: Patient-Specific Goal (Individualized) Outcome: Progressing Goal: Absence of Hospital-Acquired Illness or Injury Outcome: Progressing Goal: Optimal Comfort and Wellbeing Outcome: Progressing Goal: Readiness for Transition of Care Outcome: Progressing Problem: Fall Injury Risk Goal: Fall/Trauma/Injury Risk: Absence of Trauma/Injury/Falls Description: Patient will demonstrate the desired outcomes. Outcome: Progressing Goal: Knowledge of risk factors/behavior modification Description: Knowledge of risk factors/behavior modification for fall/injury prevention Outcome: Progressing Problem: Pain Acute Goal: Optimal Pain Control and Function Outcome: Progressing Problem: Self-Care Deficit Goal: Improved Ability to Complete Activities of Daily Living Outcome: Progressing Problem: Skin Injury Risk Increased Goal: Skin Health and Integrity Outcome: Progressing Problem: Mobility Impairment Goal: Optimal Mobility Outcome: Progressing Problem: Infection Goal: Absence of Infection Signs and Symptoms Outcome: Progressing Order clarified with Dr Gomez, bowel meds Rebecca notified of iron labs. New orders for iron daily. Introduced myself to pt and discussed PLOF, level of assist when she returns home and her needs. Pt reports that she is typically very I and plans on being I when she returns home. Discussed current LOF, home set up and needs. Also had collaborated with ROBER earlier regarding pt's frequency. Pt would benefit from 1-2 x day treatment session to progress towards a level that she can return home with as minimal physical assist requirement as possible. Problem: Adult Inpatient Plan of Care Goal: Plan of Care Review Outcome: Progressing Goal: Patient-Specific Goal (Individualized) Outcome: Progressing Goal: Absence of Hospital-Acquired Illness or Injury Outcome: Progressing Goal: Optimal Comfort and Wellbeing Outcome: Progressing Goal: Readiness for Transition of Care Outcome: Progressing Problem: Fall Injury Risk Goal: Fall/Trauma/Injury Risk: Absence of Trauma/Injury/Falls Description: Patient will demonstrate the desired outcomes. Outcome: Progressing Goal: Knowledge of risk factors/behavior modification Description: Knowledge of risk factors/behavior modification for fall/injury prevention Outcome: Progressing Problem: Pain Acute Goal: Optimal Pain Control and Function Outcome: Progressing Problem: Self-Care Deficit Goal: Improved Ability to Complete Activities of Daily Living Outcome: Progressing Problem: Skin Injury Risk Increased Goal: Skin Health and Integrity Outcome: Progressing Problem: Mobility Impairment Goal: Optimal Mobility Outcome: Progressing Problem: Infection Goal: Absence of Infection Signs and Symptoms Outcome: Progressing Problem: Adult Inpatient Plan of Care Goal: Plan of Care Review Outcome: Progressing Goal: Patient-Specific Goal (Individualized) Outcome: Progressing Goal: Absence of Hospital-Acquired Illness or Injury Outcome: Progressing Goal: Optimal Comfort and Wellbeing Outcome: Progressing Goal: Readiness for Transition of Care Outcome: Progressing Problem: Fall Injury Risk Goal: Fall/Trauma/Injury Risk: Absence of Trauma/Injury/Falls Description: Patient will demonstrate the desired outcomes. Outcome: Progressing Goal: Knowledge of risk factors/behavior modification Description: Knowledge of risk factors/behavior modification for fall/injury prevention Outcome: Progressing Problem: Adult Inpatient Plan of Care Goal: Plan of Care Review Outcome: Progressing Goal: Patient-Specific Goal (Individualized) Outcome: Progressing Goal: Absence of Hospital-Acquired Illness or Injury Outcome: Progressing Goal: Optimal Comfort and Wellbeing Outcome: Progressing Goal: Readiness for Transition of Care Outcome: Progressing Problem: Fall Injury Risk Goal: Fall/Trauma/Injury Risk: Absence of Trauma/Injury/Falls Description: Patient will demonstrate the desired outcomes. Outcome: Progressing Goal: Knowledge of risk factors/behavior modification Description: Knowledge of risk factors/behavior modification for fall/injury prevention Outcome: Progressing Problem: Pain Acute Goal: Optimal Pain Control and Function Outcome: Progressing Problem: Self-Care Deficit Goal: Improved Ability to Complete Activities of Daily Living Outcome: Progressing Problem: Skin Injury Risk Increased Goal: Skin Health and Integrity Outcome: Progressing Problem: Mobility Impairment Goal: Optimal Mobility Outcome: Progressing [place] [facility]WB precautions. Becomes upset when educated or directed to maintain TTWB and states she is. Spoke with PT who states she is not following TTWB for him either. Becomes upset when staff requests her to use two hands on walker. Problem: Adult Inpatient Plan of Care Goal: Plan of Care Review Outcome: Progressing Goal: Patient-Specific Goal (Individualized) Outcome: Progressing Goal: Absence of Hospital-Acquired Illness or Injury Outcome: Progressing Goal: Optimal Comfort and Wellbeing Outcome: Progressing Goal: Readiness for Transition of Care Outcome: Progressing Problem: Fall Injury Risk Goal: Fall/Trauma/Injury Risk: Absence of Trauma/Injury/Falls Description: Patient will demonstrate the desired outcomes. Outcome: Progressing Goal: Knowledge of risk factors/behavior modification Description: Knowledge of risk factors/behavior modification for fall/injury prevention Outcome: Progressing Problem: Pain Acute Goal: Optimal Pain Control and Function Outcome: Progressing Problem: Self-Care Deficit Goal: Improved Ability to Complete Activities of Daily Living Outcome: Progressing Problem: Skin Injury Risk Increased Goal: Skin Health and Integrity Outcome: Progressing Problem: Mobility Impairment Goal: Optimal Mobility Outcome: Progressing Patient welcomed to the unit and admission packet provided and reviewed. Denies questions or concerns at this time. Lying in bed, call light and personal items within reach. MARY Greene at bedside. Problem: Adult Inpatient Plan of Care Goal: Plan of Care Review Outcome: Progressing Goal: Patient-Specific Goal (Individualized) Outcome: Progressing Goal: Absence of Hospital-Acquired Illness or Injury Outcome: Progressing Goal: Optimal Comfort and Wellbeing Outcome: Progressing Goal: Readiness for Transition of Care Outcome: Progressing Problem: Fall Injury Risk Goal: Fall/Trauma/Injury Risk: Absence of Trauma/Injury/Falls Description: Patient will demonstrate the desired outcomes. Outcome: Progressing Goal: Knowledge of risk factors/behavior modification Description: Knowledge of risk factors/behavior modification for fall/injury prevention Outcome: Progressing Problem: Pain Acute Goal: Optimal Pain Control and Function Outcome: Progressing Problem: Self-Care Deficit Goal: Improved Ability to Complete Activities of Daily Living Outcome: Progressing Problem: Skin Injury Risk Increased Goal: Skin Health and Integrity Outcome: Progressing Problem: Mobility Impairment Goal: Optimal Mobility Outcome: Progressing Patient arrived via stretcher in stable condition. Placed into bed, made comfortable. Call light within reach and alarm in place. documented in this encounter [facility] 02-11-2024 Miscellaneous Notes Patient discharged with all belongings via wheelchair by staff to private residence. Warp Hanger provided patient with AVS. Warp Hanger educated patient on entire AVS, including but not limited to, follow-up appointments, prescriptions, home medications (new, continued, and stopped), next med dose due date and times, discharge activity and diet, and discharge education based on diagnoses. Patient verbalized understanding of all AVS education provided by automobile service writer. Problem: Adult Inpatient Plan of Care Goal: Plan of Care Review Outcome: Progressing Goal: Patient-Specific Goal (Individualized) Outcome: Progressing Goal: Absence of Hospital-Acquired Illness or Injury Outcome: Progressing Goal: Optimal Comfort and Wellbeing Outcome: Progressing Goal: Readiness for Transition of Care Outcome: Progressing Problem: Fall Injury Risk Goal: Fall/Trauma/Injury Risk: Absence of Trauma/Injury/Falls Description: Patient will demonstrate the desired outcomes. Outcome: Progressing Goal: Knowledge of risk factors/behavior modification Description: Knowledge of risk factors/behavior modification for fall/injury prevention Outcome: Progressing Problem: Pain Acute Goal: Optimal Pain Control and Function Outcome: Progressing Problem: Self-Care Deficit Goal: Improved Ability to Complete Activities of Daily Living Outcome: Progressing Problem: Skin Injury Risk Increased Goal: Skin Health and Integrity Outcome: Progressing Problem: Mobility Impairment Goal: Optimal Mobility Outcome: Progressing Problem: Infection Goal: Absence of Infection Signs and Symptoms Outcome: Progressing Spoke with wound. Per order we were to wait til wound consult was completed. They agree that the lotrisone cream should be used on groin wound. Problem: Adult Inpatient Plan of Care Goal: Plan of Care Review Outcome: Progressing Goal: Patient-Specific Goal (Individualized) Outcome: Progressing Goal: Absence of Hospital-Acquired Illness or Injury Outcome: Progressing Goal: Optimal Comfort and Wellbeing Outcome: Progressing Goal: Readiness for Transition of Care Outcome: Progressing Problem: Fall Injury Risk Goal: Fall/Trauma/Injury Risk: Absence of Trauma/Injury/Falls Description: Patient will demonstrate the desired outcomes. Outcome: Progressing Goal: Knowledge of risk factors/behavior modification Description: Knowledge of risk factors/behavior modification for fall/injury prevention Outcome: Progressing Problem: Pain Acute Goal: Optimal Pain Control and Function Outcome: Progressing Problem: Self-Care Deficit Goal: Improved Ability to Complete Activities of Daily Living Outcome: Progressing Problem: Skin Injury Risk Increased Goal: Skin Health and Integrity Outcome: Progressing Problem: Mobility Impairment Goal: Optimal Mobility Outcome: Progressing Problem: Infection Goal: Absence of Infection Signs and Symptoms Outcome: Progressing Problem: Adult Inpatient Plan of Care Goal: Plan of Care Review Outcome: Progressing Goal: Patient-Specific Goal (Individualized) Outcome: Progressing Goal: Absence of Hospital-Acquired Illness or Injury Outcome: Progressing Goal: Optimal Comfort and Wellbeing Outcome: Progressing Goal: Readiness for Transition of Care Outcome: Progressing Problem: Fall Injury Risk Goal: Fall/Trauma/Injury Risk: Absence of Trauma/Injury/Falls Description: Patient will demonstrate the desired outcomes. Outcome: Progressing Goal: Knowledge of risk factors/behavior modification Description: Knowledge of risk factors/behavior modification for fall/injury prevention Outcome: Progressing Problem: Pain Acute Goal: Optimal Pain Control and Function Outcome: Progressing Problem: Self-Care Deficit Goal: Improved Ability to Complete Activities of Daily Living Outcome: Progressing Problem: Skin Injury Risk Increased Goal: Skin Health and Integrity Outcome: Progressing Problem: Mobility Impairment Goal: Optimal Mobility Outcome: Progressing Problem: Infection Goal: Absence of Infection Signs and Symptoms Outcome: Progressing Problem: Adult Inpatient Plan of Care Goal: Plan of Care Review Outcome: Progressing Goal: Patient-Specific Goal (Individualized) Outcome: Progressing Goal: Absence of Hospital-Acquired Illness or Injury Outcome: Progressing Goal: Optimal Comfort and Wellbeing Outcome: Progressing Goal: Readiness for Transition of Care Outcome: Progressing Weekly Physical Therapy Swing Bed Conference Note 02/01/2024 - 02/08/2024 Swing Bed Goals: Patient will demonstrate bed mobility, including rolling and repositioning with modified independence to maximize independence and minimize caregiver burden for discharge home/ the next level of care, and to minimize risk of skin breakdown. CGA to Min assist Patient will perform sit <-> stand and stand pivot transfers with modified independence and LRAD to minimize risk of falling and maximize independence for return to home/advancing to the next level of care. Supervision & 4WW Patient will ambulate at least 150' with Supervision and LRAD for household/short community distance and to promote independence for return to home/the next level of care. 200 feet Supervision & FWW Patient will ambulate 50' with two turns with modified independence using LRAD for return to home and community in a way to maximize independence for functional gait and to minimize risk of falling, demonstrating appropriate use of walker in turns, and no losses of balance. Supervision & FWW Patient will ambulate at least 20' on unlevel/uneven surfaces for return to ambulation beyond household mobility, with supervision to touching assist & LRAD. NT Patient will ascend and descend 5 stairs with supervision for negotiation within the home and community. NT Patient will ascend/descend 1 curb-type step with modified independence and LRAD assistance in order to negotiate with caregivers in the community setting. CGA & FWW Patient will demonstrate ability to flower buncher or picker object from the floor with supervision and LRAD in order to promote independence in the home and demonstrate functional balance improvements in the rehabilitation program. Supervision with group care worker & FWW Patient will perform car transfer with supervision and LRAD for community re-entry at discharge. Supervision Patient will perform written HEP independently in order to continue the gains of the physical therapy program this stay. Supervision The patient has demonstrated small functional improvement with increasing distance & reduced assistance/cues. The patient would continue to benefit from physical therapy interventions but is likely nearing readiness for discharge to next level of care. Erik Julio PT Problem: Adult Inpatient Plan of Care Goal: Plan of Care Review Outcome: Progressing Goal: Patient-Specific Goal (Individualized) Outcome: Progressing Goal: Absence of Hospital-Acquired Illness or Injury Outcome: Progressing Goal: Optimal Comfort and Wellbeing Outcome: Progressing Goal: Readiness for Transition of Care Outcome: Progressing Problem: Fall Injury Risk Goal: Fall/Trauma/Injury Risk: Absence of Trauma/Injury/Falls Description: Patient will demonstrate the desired outcomes. Outcome: Progressing Goal: Knowledge of risk factors/behavior modification Description: Knowledge of risk factors/behavior modification for fall/injury prevention Outcome: Progressing Problem: Pain Acute Goal: Optimal Pain Control and Function Outcome: Progressing Problem: Self-Care Deficit Goal: Improved Ability to Complete Activities of Daily Living Outcome: Progressing Problem: Skin Injury Risk Increased Goal: Skin Health and Integrity Outcome: Progressing Problem: Mobility Impairment Goal: Optimal Mobility Outcome: Progressing Problem: Infection Goal: Absence of Infection Signs and Symptoms Outcome: Progressing Problem: Adult Inpatient Plan of Care Goal: Plan of Care Review Outcome: Progressing Goal: Patient-Specific Goal (Individualized) Outcome: Progressing Goal: Absence of Hospital-Acquired Illness or Injury Outcome: Progressing Goal: Optimal Comfort and Wellbeing Outcome: Progressing Goal: Readiness for Transition of Care Outcome: Progressing Problem: Fall Injury Risk Goal: Fall/Trauma/Injury Risk: Absence of Trauma/Injury/Falls Description: Patient will demonstrate the desired outcomes. Outcome: Progressing Goal: Knowledge of risk factors/behavior modification Description: Knowledge of risk factors/behavior modification for fall/injury prevention Outcome: Progressing Problem: Pain Acute Goal: Optimal Pain Control and Function Outcome: Progressing Problem: Self-Care Deficit Goal: Improved Ability to Complete Activities of Daily Living Outcome: Progressing Problem: Skin Injury Risk Increased Goal: Skin Health and Integrity Outcome: Progressing Problem: Mobility Impairment Goal: Optimal Mobility Outcome: Progressing Problem: Infection Goal: Absence of Infection Signs and Symptoms Outcome: Progressing Problem: Adult Inpatient Plan of Care Goal: Plan of Care Review Outcome: Progressing Goal: Patient-Specific Goal (Individualized) Outcome: Progressing Goal: Absence of Hospital-Acquired Illness or Injury Outcome: Progressing Goal: Optimal Comfort and Wellbeing Outcome: Progressing Goal: Readiness for Transition of Care Outcome: Progressing Problem: Fall Injury Risk Goal: Fall/Trauma/Injury Risk: Absence of Trauma/Injury/Falls Description: Patient will demonstrate the desired outcomes. Outcome: Progressing Goal: Knowledge of risk factors/behavior modification Description: Knowledge of risk factors/behavior modification for fall/injury prevention Outcome: Progressing Problem: Pain Acute Goal: Optimal Pain Control and Function Outcome: Progressing Problem: Self-Care Deficit Goal: Improved Ability to Complete Activities of Daily Living Outcome: Progressing Problem: Skin Injury Risk Increased Goal: Skin Health and Integrity Outcome: Progressing Problem: Mobility Impairment Goal: Optimal Mobility Outcome: Progressing Problem: Infection Goal: Absence of Infection Signs and Symptoms Outcome: Progressing Problem: Adult Inpatient Plan of Care Goal: Plan of Care Review Outcome: Progressing Goal: Patient-Specific Goal (Individualized) Outcome: Progressing Goal: Absence of Hospital-Acquired Illness or Injury Outcome: Progressing Goal: Optimal Comfort and Wellbeing Outcome: Progressing Goal: Readiness for Transition of Care Outcome: Progressing Problem: Fall Injury Risk Goal: Fall/Trauma/Injury Risk: Absence of Trauma/Injury/Falls Description: Patient will demonstrate the desired outcomes. Outcome: Progressing Goal: Knowledge of risk factors/behavior modification Description: Knowledge of risk factors/behavior modification for fall/injury prevention Outcome: Progressing Problem: Pain Acute Goal: Optimal Pain Control and Function Outcome: Progressing Problem: Self-Care Deficit Goal: Improved Ability to Complete Activities of Daily Living Outcome: Progressing Problem: Skin Injury Risk Increased Goal: Skin Health and Integrity Outcome: Progressing Problem: Mobility Impairment Goal: Optimal Mobility Outcome: Progressing Problem: Infection Goal: Absence of Infection Signs and Symptoms Outcome: Progressing Problem: Adult Inpatient Plan of Care Goal: Plan of Care Review Outcome: Progressing Goal: Patient-Specific Goal (Individualized) Outcome: Progressing Goal: Absence of Hospital-Acquired Illness or Injury Outcome: Progressing Goal: Optimal Comfort and Wellbeing Outcome: Progressing Goal: Readiness for Transition of Care Outcome: Progressing Problem: Fall Injury Risk Goal: Fall/Trauma/Injury Risk: Absence of Trauma/Injury/Falls Description: Patient will demonstrate the desired outcomes. Outcome: Progressing Goal: Knowledge of risk factors/behavior modification Description: Knowledge of risk factors/behavior modification for fall/injury prevention Outcome: Progressing Problem: Pain Acute Goal: Optimal Pain Control and Function Outcome: Progressing Problem: Self-Care Deficit Goal: Improved Ability to Complete Activities of Daily Living Outcome: Progressing Problem: Skin Injury Risk Increased Goal: Skin Health and Integrity Outcome: Progressing Problem: Mobility Impairment Goal: Optimal Mobility Outcome: Progressing Problem: Infection Goal: Absence of Infection Signs and Symptoms Outcome: Progressing Problem: Adult Inpatient Plan of Care Goal: Plan of Care Review Outcome: Progressing Goal: Patient-Specific Goal (Individualized) Outcome: Progressing Goal: Absence of Hospital-Acquired Illness or Injury Outcome: Progressing Goal: Optimal Comfort and Wellbeing Outcome: Progressing Goal: Readiness for Transition of Care Outcome: Progressing Problem: Fall Injury Risk Goal: Fall/Trauma/Injury Risk: Absence of Trauma/Injury/Falls Description: Patient will demonstrate the desired outcomes. Outcome: Progressing Goal: Knowledge of risk factors/behavior modification Description: Knowledge of risk factors/behavior modification for fall/injury prevention Outcome: Progressing Problem: Pain Acute Goal: Optimal Pain Control and Function Outcome: Progressing Problem: Self-Care Deficit Goal: Improved Ability to Complete Activities of Daily Living Outcome: Progressing Problem: Skin Injury Risk Increased Goal: Skin Health and Integrity Outcome: Progressing Problem: Mobility Impairment Goal: Optimal Mobility Outcome: Progressing Problem: Infection Goal: Absence of Infection Signs and Symptoms Outcome: Progressing Patient returned from Doctor appointment in stable condition. States no new orders. Returns with no paper work. Patient states they will send something over to us. Problem: Adult Inpatient Plan of Care Goal: Plan of Care Review Outcome: Progressing Goal: Patient-Specific Goal (Individualized) Outcome: Progressing Goal: Absence of Hospital-Acquired Illness or Injury Outcome: Progressing Goal: Optimal Comfort and Wellbeing Outcome: Progressing Goal: Readiness for Transition of Care Outcome: Progressing Problem: Fall Injury Risk Goal: Fall/Trauma/Injury Risk: Absence of Trauma/Injury/Falls Description: Patient will demonstrate the desired outcomes. Outcome: Progressing Goal: Knowledge of risk factors/behavior modification Description: Knowledge of risk factors/behavior modification for fall/injury prevention Outcome: Progressing Problem: Pain Acute Goal: Optimal Pain Control and Function Outcome: Progressing Problem: Self-Care Deficit Goal: Improved Ability to Complete Activities of Daily Living Outcome: Progressing Problem: Skin Injury Risk Increased Goal: Skin Health and Integrity Outcome: Progressing Problem: Mobility Impairment Goal: Optimal Mobility Outcome: Progressing Problem: Infection Goal: Absence of Infection Signs and Symptoms Outcome: Progressing Patient is KEE with [facility] for Appointment with Paige Damon. Left in stable condition. Problem: Adult Inpatient Plan of Care Goal: Plan of Care Review Outcome: Progressing Goal: Patient-Specific Goal (Individualized) Outcome: Progressing Goal: Absence of Hospital-Acquired Illness or Injury Outcome: Progressing Goal: Optimal Comfort and Wellbeing Outcome: Progressing Goal: Readiness for Transition of Care Outcome: Progressing Problem: Fall Injury Risk Goal: Fall/Trauma/Injury Risk: Absence of Trauma/Injury/Falls Description: Patient will demonstrate the desired outcomes. Outcome: Progressing Goal: Knowledge of risk factors/behavior modification Description: Knowledge of risk factors/behavior modification for fall/injury prevention Outcome: Progressing Problem: Pain Acute Goal: Optimal Pain Control and Function Outcome: Progressing Problem: Self-Care Deficit Goal: Improved Ability to Complete Activities of Daily Living Outcome: Progressing Problem: Skin Injury Risk Increased Goal: Skin Health and Integrity Outcome: Progressing Problem: Mobility Impairment Goal: Optimal Mobility Outcome: Progressing Problem: Infection Goal: Absence of Infection Signs and Symptoms Outcome: Progressing Weekly Physical Therapy Swing Bed Conference Note 01/25/2024 - 02/01/2024 Swing Bed Goals: Patient will demonstrate bed mobility, including rolling and repositioning with modified independence to maximize independence and minimize caregiver burden for discharge home/ the next level of care, and to minimize risk of skin breakdown. CGA to Min assist Patient will perform sit <-> stand and stand pivot transfers with modified independence and LRAD to minimize risk of falling and maximize independence for return to home/advancing to the next level of care. SBA to Min assist & FWW Patient will ambulate at least 150' with Supervision and LRAD for household/short community distance and to promote independence for return to home/the next level of care. 70 feet SBA to CGA & FWW Patient will ambulate 50' with two turns with modified independence using LRAD for return to home and community in a way to maximize independence for functional gait and to minimize risk of falling, demonstrating appropriate use of walker in turns, and no losses of balance. SBA to CGA & FWW Patient will ambulate at least 20' on unlevel/uneven surfaces for return to ambulation beyond household mobility, with supervision to touching assist & LRAD. NT Patient will ascend and descend 5 stairs with supervision for negotiation within the home and community. NT Patient will ascend/descend 1 curb-type step with modified independence and LRAD assistance in order to negotiate with caregivers in the community setting. NT Patient will demonstrate ability to flower buncher or picker object from the floor with supervision and LRAD in order to promote independence in the home and demonstrate functional balance improvements in the rehabilitation program. SBA to CGA with group care worker & FWW Patient will perform car transfer with supervision and LRAD for community re-entry at discharge. Mod assist Patient will perform written HEP independently in order to continue the gains of the physical therapy program this stay. Supervision The patient has demonstrated gradual progress toward goals with slow improvement in functional mobility. However, patient continues to have intermittent difficulty maintaining Left LE TTWB. She has not been able to safely attempt step ascend/descend. The patient would benefit from additional physical therapy interventions to promote additional improvement in functional mobility. Eirk Julio PT [facility] will be picking up pt at 10:15 am 02/01 to transport her fellow up to [facility]. Dr Gomez rounding on patient. Problem: Adult Inpatient Plan of Care Goal: Plan of Care Review Outcome: Progressing Goal: Patient-Specific Goal (Individualized) Outcome: Progressing Goal: Absence of Hospital-Acquired Illness or Injury Outcome: Progressing Goal: Optimal Comfort and Wellbeing Outcome: Progressing Goal: Readiness for Transition of Care Outcome: Progressing Problem: Fall Injury Risk Goal: Fall/Trauma/Injury Risk: Absence of Trauma/Injury/Falls Description: Patient will demonstrate the desired outcomes. Outcome: Progressing Goal: Knowledge of risk factors/behavior modification Description: Knowledge of risk factors/behavior modification for fall/injury prevention Outcome: Progressing Problem: Pain Acute Goal: Optimal Pain Control and Function Outcome: Progressing Problem: Self-Care Deficit Goal: Improved Ability to Complete Activities of Daily Living Outcome: Progressing Problem: Skin Injury Risk Increased Goal: Skin Health and Integrity Outcome: Progressing Problem: Mobility Impairment Goal: Optimal Mobility Outcome: Progressing Problem: Infection Goal: Absence of Infection Signs and Symptoms Outcome: Progressing Problem: Adult Inpatient Plan of Care Goal: Plan of Care Review Outcome: Progressing Goal: Patient-Specific Goal (Individualized) Outcome: Progressing Goal: Absence of Hospital-Acquired Illness or Injury Outcome: Progressing Goal: Optimal Comfort and Wellbeing Outcome: Progressing Goal: Readiness for Transition of Care Outcome: Progressing Problem: Fall Injury Risk Goal: Fall/Trauma/Injury Risk: Absence of Trauma/Injury/Falls Description: Patient will demonstrate the desired outcomes. Outcome: Progressing Goal: Knowledge of risk factors/behavior modification Description: Knowledge of risk factors/behavior modification for fall/injury prevention Outcome: Progressing Problem: Pain Acute Goal: Optimal Pain Control and Function Outcome: Progressing Problem: Self-Care Deficit Goal: Improved Ability to Complete Activities of Daily Living Outcome: Progressing Problem: Skin Injury Risk Increased Goal: Skin Health and Integrity Outcome: Progressing Problem: Mobility Impairment Goal: Optimal Mobility Outcome: Progressing Problem: Infection Goal: Absence of Infection Signs and Symptoms Outcome: Progressing Assisted patient to stand at chair to adjust clothing. New ice applied. Patient positioned to preference with support for LLE. Avril wraps applied to bilateral LE's with SCD's. Pump activated. Patient reports her pain as throbbing but denies offer of pain medication. Wants to wait until closer to therapy at 1:45 p.m[address] Rounding completed with Dr. Gomez. Patient up in recliner with legs elevated. Physician reviewed plan of care with patient. Patient is to follow up with Paige Damon CNP, on Wednesday. Questions answered by the physician. Call light in reach. Chair exit alarm on. Problem: Adult Inpatient Plan of Care Goal: Plan of Care Review Outcome: Progressing Goal: Patient-Specific Goal (Individualized) Outcome: Progressing Goal: Absence of Hospital-Acquired Illness or Injury Outcome: Progressing Goal: Optimal Comfort and Wellbeing Outcome: Progressing Goal: Readiness for Transition of Care Outcome: Progressing Problem: Fall Injury Risk Goal: Fall/Trauma/Injury Risk: Absence of Trauma/Injury/Falls Description: Patient will demonstrate the desired outcomes. Outcome: Progressing Goal: Knowledge of risk factors/behavior modification Description: Knowledge of risk factors/behavior modification for fall/injury prevention Outcome: Progressing Problem: Pain Acute Goal: Optimal Pain Control and Function Outcome: Progressing Problem: Self-Care Deficit Goal: Improved Ability to Complete Activities of Daily Living Outcome: Progressing Problem: Skin Injury Risk Increased Goal: Skin Health and Integrity Outcome: Progressing Problem: Mobility Impairment Goal: Optimal Mobility Outcome: Progressing Problem: Infection Goal: Absence of Infection Signs and Symptoms Outcome: Progressing Problem: Adult Inpatient Plan of Care Goal: Plan of Care Review Outcome: Progressing Goal: Patient-Specific Goal (Individualized) Outcome: Progressing Goal: Absence of Hospital-Acquired Illness or Injury Outcome: Progressing Goal: Optimal Comfort and Wellbeing Outcome: Progressing Goal: Readiness for Transition of Care Outcome: Progressing Problem: Fall Injury Risk Goal: Fall/Trauma/Injury Risk: Absence of Trauma/Injury/Falls Description: Patient will demonstrate the desired outcomes. Outcome: Progressing Goal: Knowledge of risk factors/behavior modification Description: Knowledge of risk factors/behavior modification for fall/injury prevention Outcome: Progressing Problem: Pain Acute Goal: Optimal Pain Control and Function Outcome: Progressing Problem: Self-Care Deficit Goal: Improved Ability to Complete Activities of Daily Living Outcome: Progressing Problem: Skin Injury Risk Increased Goal: Skin Health and Integrity Outcome: Progressing Problem: Mobility Impairment Goal: Optimal Mobility Outcome: Progressing Problem: Infection Goal: Absence of Infection Signs and Symptoms Outcome: Progressing Problem: Adult Inpatient Plan of Care Goal: Plan of Care Review Outcome: Progressing Goal: Patient-Specific Goal (Individualized) Outcome: Progressing Goal: Absence of Hospital-Acquired Illness or Injury Outcome: Progressing Goal: Optimal Comfort and Wellbeing Outcome: Progressing Goal: Readiness for Transition of Care Outcome: Progressing Problem: Fall Injury Risk Goal: Fall/Trauma/Injury Risk: Absence of Trauma/Injury/Falls Description: Patient will demonstrate the desired outcomes. Outcome: Progressing Goal: Knowledge of risk factors/behavior modification Description: Knowledge of risk factors/behavior modification for fall/injury prevention Outcome: Progressing Problem: Pain Acute Goal: Optimal Pain Control and Function Outcome: Progressing Problem: Self-Care Deficit Goal: Improved Ability to Complete Activities of Daily Living Outcome: Progressing Problem: Skin Injury Risk Increased Goal: Skin Health and Integrity Outcome: Progressing Problem: Mobility Impairment Goal: Optimal Mobility Outcome: Progressing Problem: Infection Goal: Absence of Infection Signs and Symptoms Outcome: Progressing Problem: Adult Inpatient Plan of Care Goal: Plan of Care Review Outcome: Progressing Goal: Patient-Specific Goal (Individualized) Outcome: Progressing Goal: Absence of Hospital-Acquired Illness or Injury Outcome: Progressing Goal: Optimal Comfort and Wellbeing Outcome: Progressing Goal: Readiness for Transition of Care Outcome: Progressing Problem: Fall Injury Risk Goal: Fall/Trauma/Injury Risk: Absence of Trauma/Injury/Falls Description: Patient will demonstrate the desired outcomes. Outcome: Progressing Goal: Knowledge of risk factors/behavior modification Description: Knowledge of risk factors/behavior modification for fall/injury prevention Outcome: Progressing Problem: Pain Acute Goal: Optimal Pain Control and Function Outcome: Progressing Problem: Self-Care Deficit Goal: Improved Ability to Complete Activities of Daily Living Outcome: Progressing Problem: Skin Injury Risk Increased Goal: Skin Health and Integrity Outcome: Progressing Problem: Mobility Impairment Goal: Optimal Mobility Outcome: Progressing Problem: Infection Goal: Absence of Infection Signs and Symptoms Outcome: Progressing Pt assessment unchanged from prior assessment by this RN, unless otherwise charted in flowsheet. Pt assessment unchanged from prior assessment by this RN, unless otherwise charted in flowsheet. Problem: Adult Inpatient Plan of Care Goal: Plan of Care Review Outcome: Progressing Goal: Patient-Specific Goal (Individualized) Outcome: Progressing Goal: Absence of Hospital-Acquired Illness or Injury Outcome: Progressing Goal: Optimal Comfort and Wellbeing Outcome: Progressing Goal: Readiness for Transition of Care Outcome: Progressing Problem: Fall Injury Risk Goal: Fall/Trauma/Injury Risk: Absence of Trauma/Injury/Falls Description: Patient will demonstrate the desired outcomes. Outcome: Progressing Goal: Knowledge of risk factors/behavior modification Description: Knowledge of risk factors/behavior modification for fall/injury prevention Outcome: Progressing Problem: Pain Acute Goal: Optimal Pain Control and Function Outcome: Progressing Problem: Self-Care Deficit Goal: Improved Ability to Complete Activities of Daily Living Outcome: Progressing Problem: Skin Injury Risk Increased Goal: Skin Health and Integrity Outcome: Progressing Problem: Mobility Impairment Goal: Optimal Mobility Outcome: Progressing Problem: Infection Goal: Absence of Infection Signs and Symptoms Outcome: Progressing Problem: Adult Inpatient Plan of Care Goal: Plan of Care Review Outcome: Progressing Goal: Patient-Specific Goal (Individualized) Outcome: Progressing Goal: Absence of Hospital-Acquired Illness or Injury Outcome: Progressing Goal: Optimal Comfort and Wellbeing Outcome: Progressing Goal: Readiness for Transition of Care Outcome: Progressing Problem: Fall Injury Risk Goal: Fall/Trauma/Injury Risk: Absence of Trauma/Injury/Falls Description: Patient will demonstrate the desired outcomes. Outcome: Progressing Goal: Knowledge of risk factors/behavior modification Description: Knowledge of risk factors/behavior modification for fall/injury prevention Outcome: Progressing Problem: Pain Acute Goal: Optimal Pain Control and Function Outcome: Progressing Problem: Self-Care Deficit Goal: Improved Ability to Complete Activities of Daily Living Outcome: Progressing Problem: Skin Injury Risk Increased Goal: Skin Health and Integrity Outcome: Progressing Problem: Mobility Impairment Goal: Optimal Mobility Outcome: Progressing Problem: Infection Goal: Absence of Infection Signs and Symptoms Outcome: Progressing Problem: Adult Inpatient Plan of Care Goal: Plan of Care Review Outcome: Progressing Goal: Patient-Specific Goal (Individualized) Outcome: Progressing Goal: Absence of Hospital-Acquired Illness or Injury Outcome: Progressing Goal: Optimal Comfort and Wellbeing Outcome: Progressing Goal: Readiness for Transition of Care Outcome: Progressing Problem: Fall Injury Risk Goal: Fall/Trauma/Injury Risk: Absence of Trauma/Injury/Falls Description: Patient will demonstrate the desired outcomes. Outcome: Progressing Goal: Knowledge of risk factors/behavior modification Description: Knowledge of risk factors/behavior modification for fall/injury prevention Outcome: Progressing Problem: Pain Acute Goal: Optimal Pain Control and Function Outcome: Progressing Problem: Self-Care Deficit Goal: Improved Ability to Complete Activities of Daily Living Outcome: Progressing Problem: Skin Injury Risk Increased Goal: Skin Health and Integrity Outcome: Progressing Problem: Mobility Impairment Goal: Optimal Mobility Outcome: Progressing Problem: Infection Goal: Absence of Infection Signs and Symptoms Outcome: Progressing Problem: Adult Inpatient Plan of Care Goal: Plan of Care Review Outcome: Progressing Goal: Patient-Specific Goal (Individualized) Outcome: Progressing Goal: Absence of Hospital-Acquired Illness or Injury Outcome: Progressing Goal: Optimal Comfort and Wellbeing Outcome: Progressing Goal: Readiness for Transition of Care Outcome: Progressing Problem: Fall Injury Risk Goal: Fall/Trauma/Injury Risk: Absence of Trauma/Injury/Falls Description: Patient will demonstrate the desired outcomes. Outcome: Progressing Goal: Knowledge of risk factors/behavior modification Description: Knowledge of risk factors/behavior modification for fall/injury prevention Outcome: Progressing Problem: Pain Acute Goal: Optimal Pain Control and Function Outcome: Progressing Problem: Self-Care Deficit Goal: Improved Ability to Complete Activities of Daily Living Outcome: Progressing Problem: Skin Injury Risk Increased Goal: Skin Health and Integrity Outcome: Progressing Problem: Mobility Impairment Goal: Optimal Mobility Outcome: Progressing Problem: Infection Goal: Absence of Infection Signs and Symptoms Outcome: Progressing Ongoing supervision of OT POC and treatment assumed from JANN Welch/Karin at [facility]. YASH Travis 01/26/2024 Problem: Adult Inpatient Plan of Care Goal: Plan of Care Review Outcome: Progressing Goal: Patient-Specific Goal (Individualized) Outcome: Progressing Goal: Absence of Hospital-Acquired Illness or Injury Outcome: Progressing Goal: Optimal Comfort and Wellbeing Outcome: Progressing Goal: Readiness for Transition of Care Outcome: Progressing Problem: Fall Injury Risk Goal: Fall/Trauma/Injury Risk: Absence of Trauma/Injury/Falls Description: Patient will demonstrate the desired outcomes. Outcome: Progressing Goal: Knowledge of risk factors/behavior modification Description: Knowledge of risk factors/behavior modification for fall/injury prevention Outcome: Progressing Problem: Pain Acute Goal: Optimal Pain Control and Function Outcome: Progressing Problem: Self-Care Deficit Goal: Improved Ability to Complete Activities of Daily Living Outcome: Progressing Problem: Skin Injury Risk Increased Goal: Skin Health and Integrity Outcome: Progressing Problem: Mobility Impairment Goal: Optimal Mobility Outcome: Progressing Problem: Infection Goal: Absence of Infection Signs and Symptoms Outcome: Progressing Problem: Adult Inpatient Plan of Care Goal: Plan of Care Review Outcome: Progressing Goal: Patient-Specific Goal (Individualized) Outcome: Progressing Goal: Absence of Hospital-Acquired Illness or Injury Outcome: Progressing Goal: Optimal Comfort and Wellbeing Outcome: Progressing Goal: Readiness for Transition of Care Outcome: Progressing Problem: Fall Injury Risk Goal: Fall/Trauma/Injury Risk: Absence of Trauma/Injury/Falls Description: Patient will demonstrate the desired outcomes. Outcome: Progressing Goal: Knowledge of risk factors/behavior modification Description: Knowledge of risk factors/behavior modification for fall/injury prevention Outcome: Progressing Problem: Pain Acute Goal: Optimal Pain Control and Function Outcome: Progressing Problem: Self-Care Deficit Goal: Improved Ability to Complete Activities of Daily Living Outcome: Progressing Problem: Skin Injury Risk Increased Goal: Skin Health and Integrity Outcome: Progressing Problem: Mobility Impairment Goal: Optimal Mobility Outcome: Progressing Problem: Infection Goal: Absence of Infection Signs and Symptoms Outcome: Progressing Problem: Adult Inpatient Plan of Care Goal: Plan of Care Review Outcome: Progressing Goal: Patient-Specific Goal (Individualized) Outcome: Progressing Goal: Absence of Hospital-Acquired Illness or Injury Outcome: Progressing Goal: Optimal Comfort and Wellbeing Outcome: Progressing Goal: Readiness for Transition of Care Outcome: Progressing Problem: Fall Injury Risk Goal: Fall/Trauma/Injury Risk: Absence of Trauma/Injury/Falls Description: Patient will demonstrate the desired outcomes. Outcome: Progressing Goal: Knowledge of risk factors/behavior modification Description: Knowledge of risk factors/behavior modification for fall/injury prevention Outcome: Progressing Problem: Pain Acute Goal: Optimal Pain Control and Function Outcome: Progressing Problem: Self-Care Deficit Goal: Improved Ability to Complete Activities of Daily Living Outcome: Progressing Problem: Skin Injury Risk Increased Goal: Skin Health and Integrity Outcome: Progressing Problem: Mobility Impairment Goal: Optimal Mobility Outcome: Progressing Problem: Infection Goal: Absence of Infection Signs and Symptoms Outcome: Progressing Problem: Adult Inpatient Plan of Care Goal: Plan of Care Review Outcome: Progressing Goal: Optimal Comfort and Wellbeing Outcome: Progressing Problem: Fall Injury Risk Goal: Fall/Trauma/Injury Risk: Absence of Trauma/Injury/Falls Description: Patient will demonstrate the desired outcomes. Outcome: Progressing Problem: Pain Acute Goal: Optimal Pain Control and Function Outcome: Progressing Problem: Self-Care Deficit Goal: Improved Ability to Complete Activities of Daily Living Outcome: Progressing Problem: Mobility Impairment Goal: Optimal Mobility Outcome: Progressing Problem: Infection Goal: Absence of Infection Signs and Symptoms Outcome: Progressing Patient reports nausea and fatigue. Zofran administered as ordered and available. Assisted patient to bathroom. Passed gas. No BM. Patient reported lightheadedness. Cool wash cloth provided. Dry heaves. Patient stood and pivoted to recliner brought to bathroom door. Returned to reclined position. Patient complained of a sore spot on the back of her left calf. This RN observed the skin. No redness or breakdown noted. Legs were re-wrapped with avril wraps and SCD's applied. Medication held until nausea resolves. Call light in place. Chair alarm activated. Summary: AM Care Pt not feeling well, multiple loose stools. Pt declined getting dressed this morning. Pt fatigued, complaining of chills and being cold. PT sleeping in recliner, with call light in reach. Rn aware. Problem: Adult Inpatient Plan of Care Goal: Plan of Care Review Outcome: Progressing Goal: Patient-Specific Goal (Individualized) Outcome: Progressing Goal: Absence of Hospital-Acquired Illness or Injury Outcome: Progressing Goal: Optimal Comfort and Wellbeing Outcome: Progressing Goal: Readiness for Transition of Care Outcome: Progressing Problem: Fall Injury Risk Goal: Fall/Trauma/Injury Risk: Absence of Trauma/Injury/Falls Description: Patient will demonstrate the desired outcomes. Outcome: Progressing Goal: Knowledge of risk factors/behavior modification Description: Knowledge of risk factors/behavior modification for fall/injury prevention Outcome: Progressing Problem: Pain Acute Goal: Optimal Pain Control and Function Outcome: Progressing Problem: Self-Care Deficit Goal: Improved Ability to Complete Activities of Daily Living Outcome: Progressing Problem: Skin Injury Risk Increased Goal: Skin Health and Integrity Outcome: Progressing Problem: Mobility Impairment Goal: Optimal Mobility Outcome: Progressing Problem: Infection Goal: Absence of Infection Signs and Symptoms Outcome: Progressing Problem: Adult Inpatient Plan of Care Goal: Plan of Care Review Outcome: Progressing Goal: Optimal Comfort and Wellbeing Outcome: Progressing Problem: Fall Injury Risk Goal: Fall/Trauma/Injury Risk: Absence of Trauma/Injury/Falls Description: Patient will demonstrate the desired outcomes. Outcome: Progressing Problem: Pain Acute Goal: Optimal Pain Control and Function Outcome: Progressing Problem: Self-Care Deficit Goal: Improved Ability to Complete Activities of Daily Living Outcome: Progressing Problem: Mobility Impairment Goal: Optimal Mobility Outcome: Progressing Problem: Infection Goal: Absence of Infection Signs and Symptoms Outcome: Progressing Rounding completed with Dr. Gomez. Patient up in recliner with legs elevated. Physician reviewed chart and encouraged patient to continue with fluids. If symptoms of diarrhea or lightheadedness continue or recur, physician to be alerted by nursing. Call light in reach. Chair exit alarm on. Assisted patient to bathroom and back to chair. No symptoms of lightheadedness or dizziness. Denies any problems. Call light in reach. Chair exit alarm on. This RN called in to patient room by LAILA Howe. Patient sitting on commode. Lizabeth PT, standing beside patient. Patient is pale, respirations rapid. PT reports to this RN that patient ambulated in room then while returning to chair felt the need to have a BM, became anxious, barely made it to bathroom and became short of breath and dizzy. Blood pressure and O2 saturation taken. O2 88. BP elevated. 140/102. HR 113 Oxygen applied at 2L. Coached patient in slow breathing. Color returning. BP repeated. BP 134/89. HR 109. Respiratory rate slowing. 98% on 2L. Patient did have a very loose stool. After hygiene performed, patient was transferred to recliner at bathroom door. BP retaken after back to chair. 143/68. HR 87. O2 saturation at 96%. She rates her pain currently as 9/10. Patient was repositioned. She complains of slight nausea. Refused offer of Zofran. Requested Jello. Provided. Pain medication provided as ordered and available. Respirations 16. Call light in reach. Chair exit alarm on. Will continue to monitor for nausea, dizziness, pain, diarrhea. Physician informed. Problem: Adult Inpatient Plan of Care Goal: Plan of Care Review Outcome: Progressing Goal: Patient-Specific Goal (Individualized) Outcome: Progressing Goal: Absence of Hospital-Acquired Illness or Injury Outcome: Progressing Goal: Optimal Comfort and Wellbeing Outcome: Progressing Goal: Readiness for Transition of Care Outcome: Progressing Problem: Fall Injury Risk Goal: Fall/Trauma/Injury Risk: Absence of Trauma/Injury/Falls Description: Patient will demonstrate the desired outcomes. Outcome: Progressing Goal: Knowledge of risk factors/behavior modification Description: Knowledge of risk factors/behavior modification for fall/injury prevention Outcome: Progressing Problem: Pain Acute Goal: Optimal Pain Control and Function Outcome: Progressing Problem: Self-Care Deficit Goal: Improved Ability to Complete Activities of Daily Living Outcome: Progressing Problem: Skin Injury Risk Increased Goal: Skin Health and Integrity Outcome: Progressing Problem: Mobility Impairment Goal: Optimal Mobility Outcome: Progressing Problem: Infection Goal: Absence of Infection Signs and Symptoms Outcome: Progressing Report received from ALLY Gomez, retail shift manager. Patient up in recliner. Awake but drowsy. Call light in reach. Chair exit alarm on. Whiteboard updated. Patient denies needs at this time. Problem: Adult Inpatient Plan of Care Goal: Plan of Care Review Outcome: Progressing Goal: Patient-Specific Goal (Individualized) Outcome: Progressing Goal: Absence of Hospital-Acquired Illness or Injury Outcome: Progressing Goal: Optimal Comfort and Wellbeing Outcome: Progressing Goal: Readiness for Transition of Care Outcome: Progressing Problem: Fall Injury Risk Goal: Fall/Trauma/Injury Risk: Absence of Trauma/Injury/Falls Description: Patient will demonstrate the desired outcomes. Outcome: Progressing Goal: Knowledge of risk factors/behavior modification Description: Knowledge of risk factors/behavior modification for fall/injury prevention Outcome: Progressing Problem: Pain Acute Goal: Optimal Pain Control and Function Outcome: Progressing Problem: Self-Care Deficit Goal: Improved Ability to Complete Activities of Daily Living Outcome: Progressing Problem: Skin Injury Risk Increased Goal: Skin Health and Integrity Outcome: Progressing Problem: Mobility Impairment Goal: Optimal Mobility Outcome: Progressing Problem: Infection Goal: Absence of Infection Signs and Symptoms Outcome: Progressing Order clarified with Dr Gomez, bowel meds Rebecca notified of iron labs. New orders for iron daily. Introduced myself to pt and discussed PLOF, level of assist when she returns home and her needs. Pt reports that she is typically very I and plans on being I when she returns home. Discussed current LOF, home set up and needs. Also had collaborated with [employer] SET UP OPERATOR earlier regarding pt's frequency. Pt would benefit from 1-2 x day treatment session to progress towards a level that she can return home with as minimal physical assist requirement as possible. Problem: Adult Inpatient Plan of Care Goal: Plan of Care Review Outcome: Progressing Goal: Patient-Specific Goal (Individualized) Outcome: Progressing Goal: Absence of Hospital-Acquired Illness or Injury Outcome: Progressing Goal: Optimal Comfort and Wellbeing Outcome: Progressing Goal: Readiness for Transition of Care Outcome: Progressing Problem: Fall Injury Risk Goal: Fall/Trauma/Injury Risk: Absence of Trauma/Injury/Falls Description: Patient will demonstrate the desired outcomes. Outcome: Progressing Goal: Knowledge of risk factors/behavior modification Description: Knowledge of risk factors/behavior modification for fall/injury prevention Outcome: Progressing Problem: Pain Acute Goal: Optimal Pain Control and Function Outcome: Progressing Problem: Self-Care Deficit Goal: Improved Ability to Complete Activities of Daily Living Outcome: Progressing Problem: Skin Injury Risk Increased Goal: Skin Health and Integrity Outcome: Progressing Problem: Mobility Impairment Goal: Optimal Mobility Outcome: Progressing Problem: Infection Goal: Absence of Infection Signs and Symptoms Outcome: Progressing Problem: Adult Inpatient Plan of Care Goal: Plan of Care Review Outcome: Progressing Goal: Patient-Specific Goal (Individualized) Outcome: Progressing Goal: Absence of Hospital-Acquired Illness or Injury Outcome: Progressing Goal: Optimal Comfort and Wellbeing Outcome: Progressing Goal: Readiness for Transition of Care Outcome: Progressing Problem: Fall Injury Risk Goal: Fall/Trauma/Injury Risk: Absence of Trauma/Injury/Falls Description: Patient will demonstrate the desired outcomes. Outcome: Progressing Goal: Knowledge of risk factors/behavior modification Description: Knowledge of risk factors/behavior modification for fall/injury prevention Outcome: Progressing Problem: Adult Inpatient Plan of Care Goal: Plan of Care Review Outcome: Progressing Goal: Patient-Specific Goal (Individualized) Outcome: Progressing Goal: Absence of Hospital-Acquired Illness or Injury Outcome: Progressing Goal: Optimal Comfort and Wellbeing Outcome: Progressing Goal: Readiness for Transition of Care Outcome: Progressing Problem: Fall Injury Risk Goal: Fall/Trauma/Injury Risk: Absence of Trauma/Injury/Falls Description: Patient will demonstrate the desired outcomes. Outcome: Progressing Goal: Knowledge of risk factors/behavior modification Description: Knowledge of risk factors/behavior modification for fall/injury prevention Outcome: Progressing Problem: Pain Acute Goal: Optimal Pain Control and Function Outcome: Progressing Problem: Self-Care Deficit Goal: Improved Ability to Complete Activities of Daily Living Outcome: Progressing Problem: Skin Injury Risk Increased Goal: Skin Health and Integrity Outcome: Progressing Problem: Mobility Impairment Goal: Optimal Mobility Outcome: Progressing [place] [facility] TTWB precautions. Becomes upset when educated or directed to maintain TTWB and states she is. Spoke with PT who states she is not following TTWB for him either. Becomes upset when staff requests her to use two hands on walker. Problem: Adult Inpatient Plan of Care Goal: Plan of Care Review Outcome: Progressing Goal: Patient-Specific Goal (Individualized) Outcome: Progressing Goal: Absence of Hospital-Acquired Illness or Injury Outcome: Progressing Goal: Optimal Comfort and Wellbeing Outcome: Progressing Goal: Readiness for Transition of Care Outcome: Progressing Problem: Fall Injury Risk Goal: Fall/Trauma/Injury Risk: Absence of Trauma/Injury/Falls Description: Patient will demonstrate the desired outcomes. Outcome: Progressing Goal: Knowledge of risk factors/behavior modification Description: Knowledge of risk factors/behavior modification for fall/injury prevention Outcome: Progressing Problem: Pain Acute Goal: Optimal Pain Control and Function Outcome: Progressing Problem: Self-Care Deficit Goal: Improved Ability to Complete Activities of Daily Living Outcome: Progressing Problem: Skin Injury Risk Increased Goal: Skin Health and Integrity Outcome: Progressing Problem: Mobility Impairment Goal: Optimal Mobility Outcome: Progressing Patient welcomed to the unit and admission packet provided and reviewed. Denies questions or concerns at this time. Lying in bed, call light and personal items within reach. MARY Greene at bedside. Problem: Adult Inpatient Plan of Care Goal: Plan of Care Review Outcome: Progressing Goal: Patient-Specific Goal (Individualized) Outcome: Progressing Goal: Absence of Hospital-Acquired Illness or Injury Outcome: Progressing Goal: Optimal Comfort and Wellbeing Outcome: Progressing Goal: Readiness for Transition of Care Outcome: Progressing Problem: Fall Injury Risk Goal: Fall/Trauma/Injury Risk: Absence of Trauma/Injury/Falls Description: Patient will demonstrate the desired outcomes. Outcome: Progressing Goal: Knowledge of risk factors/behavior modification Description: Knowledge of risk factors/behavior modification for fall/injury prevention Outcome: Progressing Problem: Pain Acute Goal: Optimal Pain Control and Function Outcome: Progressing Problem: Self-Care Deficit Goal: Improved Ability to Complete Activities of Daily Living Outcome: Progressing Problem: Skin Injury Risk Increased Goal: Skin Health and Integrity Outcome: Progressing Problem: Mobility Impairment Goal: Optimal Mobility Outcome: Progressing Patient arrived via stretcher in stable condition. Placed into bed, made comfortable. Call light within reach and alarm in place. documented in this encounter [facility] 02-11-2024 History of Presen t illness Narrative 02/11/24 0917 Time In/Out OT Therapy Completed Attempted Attempted Reason Patient declined session;Other (see comments) (pt refused any OT this date- reports that she is leaving today and will be fine, declined any questions or concerns including ADL adaptations, has a HEP with emelyn and reports that she is I and know the exercises. No tx this per pt.) Images from the original note were not included. Infectious Disease progress note SUBJECTIVE History of Present Illness: Cuate Goodman 83 y.o. female with a history of left degenerative hip disease with ongoing left hip pain with reported decreased quality of life due to this condition. The patient was seen by Orthopedics and Dr. Heredia performed surgery 01/10 with a left total hip arthroplasty. Total hip arthroplastic surgery on 01/10 did not have noted complications or infectious issues per chart review. The patient was subsequently discharged after an admission from 01/10-01/18 on the med surg unit without stated ID issue. There was no antibiotics at time of discharge. Pathology from knee replacement surgery showed consistent with degenerative joint disease without mention of infection. Has history of previous right total hip arthroplasty and left total knee arthroplasty noted. Past medical history also includes obesity, degenerative joint disease and history of DVT and PE. Additional history includes right bundle-branch block, diastolic dysfunction, B12 deficiency, impaired fasting glucose with normal preoperative A1c, elevated uric acid level, GERD, urinary incontinence, history of abdominal aortic aneurysm. Patient does have a history of penicillin allergy resulting in hives but no other allergies to antibiotics noted. The patient denies any tobacco, alcohol or drug use. No prior use reported. Patient was subsequently admitted swing bed for rehabilitation on 01/18. Patient underwent pain control, PT/OT and ongoing medical management. Patient was noted to have erythema that began around her left hip site approximately on 01/18 or 01/19 per nursing report. There has been no described drainage from her hip. Patient denies any specific areas pain in her hip joint. There is no reported fevers or chills or night sweats at time of initial consultation. The patient denies any new respiratory, abdominal or urinary symptoms. Specifically she denies any UTI symptoms Infectious disease consult 01/21/2024, patient began on Zyvox for superficial postop infection, Interval events: 24 hour events reviewed. Patient did participate in physical therapy for her history yesterday. Patient feels that the rash between her legs is notably improved. She will be going home today and prescriptions for the Lotrisone cream and fluconazole written. Patient denies any dysuria. No nausea vomiting or diarrhea. Overall the patient states she is feeling and denies any other complaints. Patient states that she worked on stairs yesterday. Discussed with her fall precautions at home. ROS A complete review of systems are negative except those consistent with HPI OBJECTIVE Past Medical History: Diagnosis Date Aortic aneurysm Arthritis Deep vein thrombosis (DVT) GERD (gastroesophageal reflux disease) H/O unilateral nephrectomy per pt Past Medical History: Diagnosis Date Aortic aneurysm Arthritis Deep vein thrombosis (DVT) GERD (gastroesophageal reflux disease) H/O unilateral nephrectomy per pt Past Surgical History: Procedure Laterality Date ARTHROPLASTY HIP TOTAL Left 01/11/2024 Laterality: Left; Surgeon: Erik Heredia MD; Location: [facility] OR NEPHRECTOMY Right 1978 CHOLECYSTECTOMY HIP REPLACEMENT Right HYSTERECTOMY KNEE REPLACEMENT Bilateral left x 2 LITHOTRIPSY multiple Patient Active Problem List Diagnosis S/P total hip arthroplasty Gout Aneurysm of ascending aorta without rupture Aneurysmal dilatation Closed fracture of hand Fracture of metacarpal bone Gastro-esophageal reflux disease without esophagitis Hypomagnesemia Lumbar spondylosis Mixed stress and urge urinary incontinence Morbid (severe) obesity due to excess calories Other disorders of plasma-protein metabolism, not elsewhere classified Pulmonary embolism Solitary kidney, acquired Thoracic aortic ectasia Unilateral primary osteoarthritis, left hip Unsteadiness on feet S/P total left hip arthroplasty H/O unilateral nephrectomy Social History Socioeconomic History Marital status: Single Spouse name: Not on file Number of children: Not on file Years of education: Not on file Highest education level: Not on file Occupational History Not on file Tobacco Use Smoking status: Never Smokeless tobacco: Never Substance and Sexual Activity Alcohol use: Never Drug use: Never Sexual activity: Not on file Other Topics Concern Not on file Social History Narrative Not on file Social Determinants of Health Financial Resource Strain: Low Risk (01/21/2024) Overall Financial Resource Strain (CARDIA) Difficulty of Paying Living Expenses: Not very hard Food Insecurity: No Food Insecurity (01/21/2024) Hunger Vital Sign Worried About Running Out of Food in the Last Year: Never true Ran Out of Food in the Last Year: Never true Transportation Needs: No Transportation Needs (01/21/2024) PRAPARE - Transportation Lack of Transportation (Medical): No Lack of Transportation (Non-Medical): No Physical Activity: Not on file Stress: Not on file Social Connections: Not on file Intimate Partner Violence: Not At Risk (01/21/2024) Humiliation, Afraid, Rape, and Kick questionnaire Fear of Current or Ex-Partner: No Emotionally Abused: No Physically Abused: No Sexually Abused: No Housing Stability: Low Risk (01/21/2024) Housing Stability Vital Sign Unable to Pay for Housing in the Last Year: No Number of Places Lived in the Last Year: 1 Unstable Housing in the Last Year: No Current Facility-Administered Medications: Acetaminophen (TYLENOL) tablet 650 mg, 650 mg, Oral, Q4H PRN, Mohan Gomez MD, 650 mg at 02/07/24 0908 Allopurinol (ZYLOPRIM) tablet 100 mg, 100 mg, Oral, Daily, Mohan Gomez MD, 100 mg at 02/10/24 0842 apixaban (ELIQUIS) tablet 5 mg, 5 mg, Oral, Q12H, Mohan Gomez MD, 5 mg at 02/10/242113 bisacodyl (DULCOLAX) suppository 10 mg, 10 mg, Rectal, Daily PRN, Mohan Gomez MD clotrimazole-betamethasone (LOTRISONE) 1-0.05 % cream, , Topical, BID, Janet Moreno MD, Given at 02/10/24 162 Cyclobenzaprine (FLEXERIL) tablet 5 mg, 5 mg, Oral, Q12H, Mohan Gomez MD, 5 mg at 02/10/242111 Docusate (COLACE) capsule 100 mg, 100 mg, Oral, Q12H, Mohan Gomez MD, 100 mg at 02/10/2442 ferrous sulfate tablet 325 mg, 325 mg, Oral, Daily, Mohan Gomez MD, 325 mg at 02/10/2442 fluconazole (DIFLUCAN) tablet 150 mg, 150 mg, Oral, Daily, Janet Moreno MD, 150 mg at 02/10/24 0841 hydroCODone-acetaminophen (NORCO) 5-325 MG per tablet 1 tablet, 1 tablet, Oral, Q4H PRN, Mohan Gomez MD, 1 tablet at 02/10/242004 hydroCODone-acetaminophen (NORCO) 5-325 MG per tablet 2 tablet, 2 tablet, Oral, Q4H PRN, Mohan Gomez MD, 2 tablet at 02/10/242357 lactulose (CHRONULAC) oral solution 20 g, 20 g, Oral, TID PRN, Mohan Gomez MD Lisinopril (PRINIVIL) tablet 5 mg, 5 mg, Oral, Daily, Mohan Gomez MD, 5 mg at 02/10/24841 multivitamin tablet 1 tablet, 1 tablet, Oral, Daily, Mohan Gomez MD, 1 tablet at 02/10/24841 ondansetron (ZOFRAN-ODT) disintegrating tablet 4 mg, 4 mg, Oral, Q4H PRN, Mohan Gomez MD, 4 mg at 02/05/24 09 Pantoprazole (PROTONIX) tablet DR 40 mg, 40 mg, Oral, Before BKF, Mohan Gomez MD, 40 mg at 02/11/24 0522 Polyethylene glycol (MIRALAX) packet 17 g, 17 g, Oral, Q12H, Mohan Gomez MD, 17 g at 02/10/242112 Polyethylene glycol (MIRALAX) packet 17 g, 17 g, Oral, TID PRN, Mohan Gomez MD Povidone-Iodine (PROFEND) 10 % swab 1 Application, 1 Application, Topical, QHS, Mohan Gomez MD, 1 Application at 02/10/242117 senna-docusate (SENOKOT-S) 8.6-50 MG per tablet 2 tablet, 2 tablet, Oral, Q12H, Mohan Gomez MD, 2 tablet at 02/06/24 215 Tolterodine (DETROL-LA) capsule XL 4 mg, 4 mg, Oral, Daily, Mohan Gomez MD, 4 mg at 02/10/24 0841 Zolpidem (AMBIEN) tablet 5 mg, 5 mg, Oral, QHS PRN, Mohan Gomez MD, 5 mg at 02/10/24 2359 Allergies Allergen Reactions Morphine Nausea and Vomiting Other Reaction(s): GI intolerance Oxycodone Nausea and Vomiting Other Reaction(s): GI intolerance Penicillins Hives Vitals: 02/10/24 1954 02/11/24 0432 02/11/24 0722 02/11/24 0732 BP: 127/77 109/57 Pulse: 70 85 Resp: 16 18 Temp: 98.6 degrees F (37 degrees C) 97.9 degrees F (36.6 degrees C) TempSrc: Oral Oral SpO2: 95% 94% 94% Weight: 105.5 kg (232 lb 9.6 oz) Height: Intake/Output Summary (Last 24 hours) at 02/11/2024 0759 Last data filed at 02/10/2024 2300 Gross per 24 hour Intake 965 ml Output -- Net 965 ml Physical Exam: CONSTITUTIONAL: Alert and Oriented, in no distress, afebrile HEENT: Normocephalic and atraumatic, Sclera anicteric, PERRL, mild thrush improving, dry lips improving and no visualized HSV lesions CARDIAC: Normal rate, regular rhythm, normal heart sounds and intact distal pulses, no murmurs/rubs/clicks/gallops RESP: Effort normal and breath sounds are normal, but distant. No respiratory distress. No Wheezing/Rales/Cough, RA GI: Soft. Bowel sounds are normal. Nontender. Nondistended. Morbid obesity : No Suprapubic tenderness, patient was an erythematous rash in groin area consistent with a yeast infection. This is dry this morning. No significant tenderness. Overall improving EXTREMITES: No cyanosis, clubbing; positive for history of left total knee arthroplasty. History of right total hip arthroplasty. Left total hip arthroplasty with incision with minimal erythema, overall improved, no pain, no drainage. Betadine is in place. Left greater than right lower extremity edema DERM: Skin is warm and dry. No rash noted MUSCULARSKELETAL: No septic arthritis noted NEUROLOGIC: Alert and communicative LAB RESULTS: WBC (WHITE BLOOD COUNT) Date/Time Value Ref Range Status 02/11/2024 05:37 AM 5.0 3.6 - 11.0 10*3/uL Final 02/10/2024 04:36 AM 6.3 3.6 - 11.0 10*3/uL Final 02/09/2024 04:49 AM 6.4 3.6 - 11.0 10*3/uL Final 02/08/2024 04:50 AM 5.5 3.6 - 11.0 10*3/uL Final 02/07/2024 04:36 AM 5.1 3.6 - 11.0 10*3/uL Final 02/06/2024 04:53 AM 5.8 3.6 - 11.0 10*3/uL Final 02/05/2024 05:25 AM 5.0 3.6 - 11.0 10*3/uL Final HEMOGLOBIN (HGB) Date/Time Value Ref Range Status 02/11/2024 05:37 AM 10.7 (L) 12.0 - 16.0 G/DL Final 02/10/2024 04:36 AM 10.7 (L) 12.0 - 16.0 G/DL Final 02/09/2024 04:49 AM 11.4 (L) 12.0 - 16.0 G/DL Final 02/08/2024 04:50 AM 10.4 (L) 12.0 - 16.0 G/DL Final 02/07/2024 04:36 AM 10.5 (L) 12.0 - 16.0 G/DL Final 02/06/2024 04:53 AM 10.1 (L) 12.0 - 16.0 G/DL Final 02/05/2024 05:25 AM 10.4 (L) 12.0 - 16.0 G/DL Final HEMATOCRIT (HCT) Date/Time Value Ref Range Status 02/11/2024 05:37 AM 31.9 (L) 36.0 - 48.0 % Final 02/10/2024 04:36 AM 31.7 (L) 36.0 - 48.0 % Final 02/09/2024 04:49 AM 34.2 (L) 36.0 - 48.0 % Final 02/08/2024 04:50 AM 30.8 (L) 36.0 - 48.0 % Final 02/07/2024 04:36 AM 31.7 (L) 36.0 - 48.0 % Final 02/06/2024 04:53 AM 29.6 (L) 36.0 - 48.0 % Final 02/05/2024 05:25 AM 30.8 (L) 36.0 - 48.0 % Final PLATELET COUNT Date/Time Value Ref Range Status 02/11/2024 05:37 AM 368 130 - 400 10*3/uL Final 02/10/2024 04:36 AM 369 130 - 400 10*3/uL Final 02/09/2024 04:49 AM 401 (H) 130 - 400 10*3/uL Final 02/08/2024 04:50 AM 368 130 - 400 10*3/uL Final 02/07/2024 04:36 AM 366 130 - 400 10*3/uL Final 02/06/2024 04:53 AM 365 130 - 400 10*3/uL Final 02/05/2024 05:25 AM 378 130 - 400 10*3/uL Final POTASSIUM Date/Time Value Ref Range Status 02/11/2024 05:37 AM 4.5 3.5 - 5.1 MMOL/L Final 02/10/2024 04:36 AM 4.3 3.5 - 5.1 MMOL/L Final 02/09/2024 04:49 AM 4.5 3.5 - 5.1 MMOL/L Final 02/08/2024 04:50 AM 4.3 3.5 - 5.1 MMOL/L Final 02/07/2024 04:36 AM 4.3 3.5 - 5.1 MMOL/L Final 02/06/2024 04:53 AM 4.4 3.5 - 5.1 MMOL/L Final 02/05/2024 05:25 AM 4.3 3.5 - 5.1 MMOL/L Final CHLORIDE Date/Time Value Ref Range Status 02/11/2024 05:37 AM 104 98 - 107 MMOL/L Final Comment: Please note: Triglyceride levels of 600mg/dL or higher may positively bias chloride results by approximately 2.1 mmol 02/10/2024 04:36 AM 105 98 - 107 MMOL/L Final Comment: Please note: Triglyceride levels of 600mg/dL or higher may positively bias chloride results by approximately 2.1 mmol 02/09/2024 04:49 AM 104 98 - 107 MMOL/L Final Comment: Please note: Triglyceride levels of 600mg/dL or higher may positively bias chloride results by approximately 2.1 mmol 02/08/2024 04:50 AM 104 98 - 107 MMOL/L Final Comment: Please note: Triglyceride levels of 600mg/dL or higher may positively bias chloride results by approximately 2.1 mmol 02/07/2024 04:36 AM 105 98 - 107 MMOL/L Final Comment: Please note: Triglyceride levels of 600mg/dL or higher may positively bias chloride results by approximately 2.1 mmol 02/06/2024 04:53 AM 104 98 - 107 MMOL/L Final Comment: Please note: Triglyceride levels of 600mg/dL or higher may positively bias chloride results by approximately 2.1 mmol 02/05/2024 05:25 AM 104 98 - 107 MMOL/L Final Comment: Please note: Triglyceride levels of 600mg/dL or higher may positively bias chloride results by approximately 2.1 mmol CARBON DIOXIDE (CO2) Date/Time Value Ref Range Status 02/11/2024 05:37 AM 28 22 - 30 MMOL/L Final 02/10/2024 04:36 AM 29 22 - 30 MMOL/L Final 02/09/2024 04:49 AM 28 22 - 30 MMOL/L Final 02/08/2024 04:50 AM 30 22 - 30 MMOL/L Final 02/07/2024 04:36 AM 27 22 - 30 MMOL/L Final 02/06/2024 04:53 AM 29 22 - 30 MMOL/L Final 02/05/2024 05:25 AM 30 22 - 30 MMOL/L Final Glucose Date/Time Value Ref Range Status 02/11/2024 05:37 AM 98 70 - 100 MG/DL Final Comment: NORMAL <100 mg/dL PREDIABETES 101-126 mg/dL DIABETES 126 mg/dL or higher 02/10/2024 04:36 AM 97 70 - 100 MG/DL Final Comment: NORMAL <100 mg/dL PREDIABETES 101-126 mg/dL DIABETES 126 mg/dL or higher 02/09/2024 04:49 AM 103 (H) 70 - 100 MG/DL Final Comment: NORMAL <100 mg/dL PREDIABETES 101-126 mg/dL DIABETES 126 mg/dL or higher 02/08/2024 04:50 AM 96 70 - 100 MG/DL Final Comment: NORMAL <100 mg/dL PREDIABETES 101-126 mg/dL DIABETES 126 mg/dL or higher 02/07/2024 04:36 AM 95 70 - 100 MG/DL Final Comment: NORMAL <100 mg/dL PREDIABETES 101-126 mg/dL DIABETES 126 mg/dL or higher 02/06/2024 04:53 AM 100 70 - 100 MG/DL Final Comment: NORMAL <100 mg/dL PREDIABETES 101-126 mg/dL DIABETES 126 mg/dL or higher 02/05/2024 05:25 AM 101 (H) 70 - 100 MG/DL Final Comment: NORMAL <100 mg/dL PREDIABETES 101-126 mg/dL DIABETES 126 mg/dL or higher BUN Date/Time Value Ref Range Status 02/11/2024 05:37 AM 16 7 - 20 MG/DL Final 02/10/2024 04:36 AM 19 7 - 20 MG/DL Final 02/09/2024 04:49 AM 20 7 - 20 MG/DL Final 02/08/2024 04:50 AM 14 7 - 20 MG/DL Final 02/07/2024 04:36 AM 11 7 - 20 MG/DL Final 02/06/2024 04:53 AM 17 7 - 20 MG/DL Final 02/05/2024 05:25 AM 14 7 - 20 MG/DL Final CREATININE SERUM Date/Time Value Ref Range Status 02/11/2024 05:37 AM 0.80 0.7 - 1.2 MG/DL Final 02/10/2024 04:36 AM 0.80 0.7 - 1.2 MG/DL Final 02/09/2024 04:49 AM 0.90 0.7 - 1.2 MG/DL Final 02/08/2024 04:50 AM 0.80 0.7 - 1.2 MG/DL Final 02/07/2024 04:36 AM 0.70 0.7 - 1.2 MG/DL Final 02/06/2024 04:53 AM 0.80 0.7 - 1.2 MG/DL Final 02/05/2024 05:25 AM 0.80 0.7 - 1.2 MG/DL Final Albumin Date/Time Value Ref Range Status 01/31/2024 06:12 AM 3.0 (L) 3.5 - 5.0 G/DL Final 01/23/2024 04:37 AM 2.6 (L) 3.5 - 5.0 G/DL Final 01/17/2024 04:31 AM 2.6 (L) 3.5 - 5.0 G/dl Final 12/16/2023 12:35 PM 4.0 3.5 - 5.0 G/dl Final CALCIUM Date/Time Value Ref Range Status 02/11/2024 05:37 AM 9.1 8.4 - 10.2 MG/DL Final 02/10/2024 04:36 AM 8.8 8.4 - 10.2 MG/DL Final 02/09/2024 04:49 AM 9.1 8.4 - 10.2 MG/DL Final 02/08/2024 04:50 AM 8.9 8.4 - 10.2 MG/DL Final 02/07/2024 04:36 AM 8.8 8.4 - 10.2 MG/DL Final 02/06/2024 04:53 AM 8.6 8.4 - 10.2 MG/DL Final 02/05/2024 05:25 AM 8.8 8.4 - 10.2 MG/DL Final ALKALINE PHOSPHATASE Date/Time Value Ref Range Status 01/31/2024 06:12 AM 107 38 - 126 IU/L Final 01/23/2024 04:37 AM 99 38 - 126 IU/L Final 12/16/2023 12:35 PM 89 38 - 126 IU/L Final AST Date/Time Value Ref Range Status 01/31/2024 06:12 AM 26 14 - 36 IU/L Final 01/23/2024 04:37 AM 25 14 - 36 IU/L Final 12/16/2023 12:35 PM 25 14 - 36 IU/L Final BILIRUBIN, TOTAL Date/Time Value Ref Range Status 01/31/2024 06:12 AM 0.2 0.2 - 1.3 MG/DL Final 01/23/2024 04:37 AM 0.3 0.2 - 1.3 MG/DL Final 12/16/2023 12:35 PM 0.3 0.2 - 1.3 MG/DL Final ANION GAP Date/Time Value Ref Range Status 02/11/2024 05:37 AM 3 (L) 8 - 16 MMOL/L Final 02/10/2024 04:36 AM 1 (L) 8 - 16 MMOL/L Final 02/09/2024 04:49 AM 3 (L) 8 - 16 MMOL/L Final 02/08/2024 04:50 AM NEG 1 8 - 16 MMOL/L Final 02/07/2024 04:36 AM 1 (L) 8 - 16 MMOL/L Final 02/06/2024 04:53 AM 2 (L) 8 - 16 MMOL/L Final 02/05/2024 05:25 AM 1 (L) 8 - 16 MMOL/L Final ALT Date/Time Value Ref Range Status 01/31/2024 06:12 AM 13 <35 IU/L Final 01/23/2024 04:37 AM 10 <35 IU/L Final 12/16/2023 12:35 PM 16 <35 IU/L Final ESTIMATED GFR, NON AMER Date/Time Value Ref Range Status 02/11/2024 05:37 AM 73 ml/min/1.73sq.m Final 02/10/2024 04:36 AM 73 ml/min/1.73sq.m Final 02/09/2024 04:49 AM 64 ml/min/1.73sq.m Final 02/08/2024 04:50 AM 73 ml/min/1.73sq.m Final 02/07/2024 04:36 AM 85 ml/min/1.73sq.m Final 02/06/2024 04:53 AM 73 ml/min/1.73sq.m Final 02/05/2024 05:25 AM 73 ml/min/1.73sq.m Final ESTIMATED GFR, Date/Time Value Ref Range Status 02/11/2024 05:37 AM 89 ml/min/1.73sq.m Final 02/10/2024 04:36 AM 89 ml/min/1.73sq.m Final 02/09/2024 04:49 AM 77 ml/min/1.73sq.m Final 02/08/2024 04:50 AM 89 ml/min/1.73sq.m Final 02/07/2024 04:36 AM 103 ml/min/1.73sq.m Final 02/06/2024 04:53 AM 89 ml/min/1.73sq.m Final 02/05/2024 05:25 AM 89 ml/min/1.73sq.m Final GFR COMMENT Date/Time Value Ref Range Status 02/11/2024 05:37 AM Average GFR for 70+ years old = 75. Final Comment: Chronic Kidney disease, GFR = <60. Kidney failure, GFR = <15. The GFR estimate is not adjusted for extreme body surface area or acute process, nor has it been validated for women or ethnic groups other than and . CBC Lab Results Component Value Date WBC 5.0 02/11/2024 HGB 10.7 (L) 02/11/2024 HCT 31.9 (L) 02/11/2024 PLATELET 368 02/11/2024 MCV 96.1 02/11/2024 EDIF Lab Results Component Value Date RBCDISTRIBU 15.2 (H) 02/11/2024 EOSINOPHILS 4.1 02/11/2024 EOSINOPHILS 0.2 02/11/2024 BASOPHILS 1.0 02/11/2024 BASOPHILS 0.0 02/11/2024 LYMPHOCYTABS 1.3 02/11/2024 PLATELET 368 02/11/2024 MPV 7.2 (L) 02/11/2024 Lab Results Component Value Date SODIUM 135 (L) 02/11/2024 POTASSIUM 4.5 02/11/2024 CHLORIDE 104 02/11/2024 CO2 28 02/11/2024 BUN 16 02/11/2024 CREATSERUM 0.80 02/11/2024 GLUCOSE 98 02/11/2024 Micro C difficile stool 01/23- Urine culture 01/20- 01/20 Nares - 12/16/2023 positive nares test for MSSA 12/15 urine test positive for Klebsiella only resistant to ampicillin and Macrobid XR CHEST 1 VIEW PORTABLE Final Result IMPRESSION: 1. Cardiomegaly. 2. Aortic tortuosity. 3. Minor effusion in the left lung base is suspected. 4. Both lungs are expanded. I am not seeing any obvious displaced fracture although detail is limited. There are accentuated interstitial markings which may well be chronic. ASSESSMENT AND PLAN . Cuate Goodman 83 y.o. with a history of multiple medical problems including DVT/PE, morbid obesity, degenerative joint disease presents with left hip pain undergoing left total hip arthroplasty on 01/10 showing degenerative changes Left total hip arthroplasty, concern for superficial wound infection -history of development of erythema around the incision site on 01/18 or 01/19 without systemic signs of infection -No drainage for wound cx -perioperative nares culture was positive for MSSA, repeat culture 01/20 negative -antibiotic therapy will be given especially in the setting of underlying hardware in the postop period to try to prevent any spread of superficial infection to deeper areas of hardware and this was discussed with her and all questions answered -s/p zyvox 01/20-01/26 -s/p Septra 01/26-01/29 -s/p mupirocin twice daily, 01/22-01/26 -recommend avoiding any rubbing of the undergarments, discussed with nursing -status post 10 day course of antibiotics, discontinued on 01/29. -overall slowly healing without clear evidence of infection -Betadine paint to Wound incision per orthopedics -x-ray shows good position of hardware -orthopedic follow up History of Klebsiella positive urine culture -urinalysis 12/15 with too numerous to count white cells and +3 bacteria -history of Klebsiella positive urine culture in November of 2023 only resistant to ampicillin and Macrobid -patient denies any urinary symptoms and UA bland, culture 01/20 negative Inflammatory markers -CRP 58, 42, 46, 33, 28, 28, 30, 28, 25, 27, 26, 26, 21, 21, 21, 22, 19, 22, 21, 18,22 -ESR 71, 75 -trends can be discontinued Anemia -hemoglobin 11.4, 10.7, 10.7 -previous anemia workup in November of 2022 was negative with normal iron, B12 and folate studies -Fe 37. -Hb stable Healthcare maintenance -hemoglobin A1c normal at 5.7 on 12/15 History of DVT/PE -anticoagulation per primary team Diarrhea, history -C diff testing and GI pathogen panel negative during admission -suspicious for a viral process -Resolved Medial bilateral thigh charmaine infection -wound care was consulted on 02/03 for what was described as posterior thigh injuries that were purplish in color and recommended offloading. I am told that these areas have improved. -patient now complains of an inner thigh wound that appears to be due to skin rubbing and a fungal infection -Legs are being by nursing on swing bed with pillow cases to decrease irritation -clotrimazole/steroid cream as well as fluconazole - Rx written; improving Disposition -ongoing PT/OT -home on 02/10 -ID post discharge f/up appt Janet Moreno MD DAILY PROGRESS NOTE Admit Date: 01/19/2024 Date of Evaluation: 49:54 PM [facility] LOS: 22 days IMPRESSION AND PLAN: 83 y.o. 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 1) Severe left hip arthritis s/p total hip arthroplasty PT/OT Continue with eliquis Continue with flexeril Continue with norco PRN Continue with senokot PRN Continue with tramadol PRN Encourage compliance with PT/OT. Persistent weakness noted. 2) Chronic normocytic anemia H and H 9.8 -> 9.5 -> 10.7 -> 10.0 -> 10.1 -> 9.8 -> 10.3 -> 10.6 -> 10.0 -> 10.3 -> 10.0 -> 10.6 -> 10.5 -> 10.7 -> 10.4 -> 10.1 -> 10.5 -> 10.4 -> 11.4 and 29.2 -> 27.7 -> 31.8 -> 29.1 -> 29.3 -> 29.4 -> 29.0 -> 30.7 -> 31.3 -> >29.3 -> 29.9 -> 29.3 -> 31.4 -> 31.1 -> 31.8 -> 30.8 -> 29.6 -> 31.7 -> >30.8 -> 34.2 Fe 29, TIBC 144, transferrin 20 Continue with iron Serial CBC 3) Gout Currently on allopurinol 4) GERD Currently on protonix. 5) Diarrhea Probably viral C. Diff is negative GI panel is negative. Workup is negative to-date Supportive care. Monitor for hypotension Monitor for hypokalemia Improved. 6) Cellulitis Antibiotic therapy will be given especially in the setting of underlying hardware in the postop period to try to prevent any spread of superficial infection to deeper areas of hardware CRP 58.3 -> 33.6 -> 28.4 -> 30.5 -> 28.9 -> 25.8 -> 26.1 -> 21.4-> 26.3 -> 21.9 -> 22.7 -> >19.6 -> 21.2, stable. Finished a course of linezolid Finished a course of bactrobran Finished a course of bactrim DS BID. Continue with nystatin cream Encourage PO intake. Followed by ID 7) HTN SBP 120/90s Continue with lisinopril. 8) Mild oral thrush Nystatin swish and swallow, continue symptomatic treatment of lip dryness 9) Urinary incontinence UA is bland. Supportive care 10) Medial bilateral thigh wounds, yeast ID patient now complains of an inner thigh wound that appears to be due to skin rubbing and a fungal infection Continue with clotrimazole/steroid cream as well as fluconazole as there is a yeast component. Continue to keep area dry and clean Followed by ID SUBJECTIVE: Patient seen and examined. Chart, medications, labs reviewed. Office Visit on 02/02/2024 Component Date Value Ref Range Status BSA 02/02/2024 2.18 m2 In process LABS Labs-ABGs Labs-CBC @[email or web address]@ Labs-Chem 7([facility]) Bun/Creat/Cl/CO2/Glucose: 19/0.80/105/29/97 (02/10 436) Na/K+/Phos/Mg/Ca: 135/4.3/--/--/8.8 (02/10 436) Labs-Coags WBC (WHITE BLOOD COUNT) Date Value Ref Range Status 02/10/2024 6.3 3.6 - 11.0 10*3/uL Final 02/09/2024 6.4 3.6 - 11.0 10*3/uL Final 02/08/2024 5.5 3.6 - 11.0 10*3/uL Final HEMOGLOBIN (HGB) Date Value Ref Range Status 02/10/2024 10.7 (L) 12.0 - 16.0 G/DL Final 02/09/2024 11.4 (L) 12.0 - 16.0 G/DL Final 02/08/2024 10.4 (L) 12.0 - 16.0 G/DL Final HEMATOCRIT (HCT) Date Value Ref Range Status 02/10/2024 31.7 (L) 36.0 - 48.0 % Final 02/09/2024 34.2 (L) 36.0 - 48.0 % Final 02/08/2024 30.8 (L) 36.0 - 48.0 % Final PLATELET COUNT Date Value Ref Range Status 02/10/2024 369 130 - 400 10*3/uL Final 02/09/2024 401 (H) 130 - 400 10*3/uL Final 02/08/2024 368 130 - 400 10*3/uL Final SODIUM Date Value Ref Range Status 02/10/2024 135 (L) 137 - 145 MMOL/L Final 02/09/2024 135 (L) 137 - 145 MMOL/L Final 02/08/2024 133 (L) 137 - 145 MMOL/L Final CHLORIDE Date Value Ref Range Status 02/10/2024 105 98 - 107 MMOL/L Final Comment: Please note: Triglyceride levels of 600mg/dL or higher may positively bias chloride results by approximately 2.1 mmol 02/09/2024 104 98 - 107 MMOL/L Final Comment: Please note: Triglyceride levels of 600mg/dL or higher may positively bias chloride results by approximately 2.1 mmol 02/08/2024 104 98 - 107 MMOL/L Final Comment: Please note: Triglyceride levels of 600mg/dL or higher may positively bias chloride results by approximately 2.1 mmol BUN Date Value Ref Range Status 02/10/2024 19 7 - 20 MG/DL Final 02/09/2024 20 7 - 20 MG/DL Final 02/08/2024 14 7 - 20 MG/DL Final POTASSIUM Date Value Ref Range Status 02/10/2024 4.3 3.5 - 5.1 MMOL/L Final 02/09/2024 4.5 3.5 - 5.1 MMOL/L Final 02/08/2024 4.3 3.5 - 5.1 MMOL/L Final CREATININE SERUM Date Value Ref Range Status 02/10/2024 0.80 0.7 - 1.2 MG/DL Final 02/09/2024 0.90 0.7 - 1.2 MG/DL Final 02/08/2024 0.80 0.7 - 1.2 MG/DL Final Glucose Date Value Ref Range Status 02/10/2024 97 70 - 100 MG/DL Final Comment: NORMAL <100 mg/dL PREDIABETES 101-126 mg/dL DIABETES 126 mg/dL or higher 02/09/2024 103 (H) 70 - 100 MG/DL Final Comment: NORMAL <100 mg/dL PREDIABETES 101-126 mg/dL DIABETES 126 mg/dL or higher 02/08/2024 96 70 - 100 MG/DL Final Comment: NORMAL <100 mg/dL PREDIABETES 101-126 mg/dL DIABETES 126 mg/dL or higher PT Date Value Ref Range Status 01/11/2024 14.2 11.8 - 14.4 SEC Final 12/16/2023 17.9 (H) 11.8 - 14.4 SEC Final PROTEIN, TOTAL Date Value Ref Range Status 01/31/2024 6.1 (L) 6.3 - 8.2 GM/DL Final 01/23/2024 5.6 (L) 6.3 - 8.2 GM/DL Final 12/16/2023 7.2 6.3 - 8.2 GM/DL Final Albumin Date Value Ref Range Status 01/31/2024 3.0 (L) 3.5 - 5.0 G/DL Final 01/23/2024 2.6 (L) 3.5 - 5.0 G/DL Final 01/17/2024 2.6 (L) 3.5 - 5.0 G/dl Final AST Date Value Ref Range Status 01/31/2024 26 14 - 36 IU/L Final 01/23/2024 25 14 - 36 IU/L Final 12/16/2023 25 14 - 36 IU/L Final ALT Date Value Ref Range Status 01/31/2024 13 <35 IU/L Final 01/23/2024 10 <35 IU/L Final 12/16/2023 16 <35 IU/L Final BILIRUBIN, TOTAL Date Value Ref Range Status 01/31/2024 0.2 0.2 - 1.3 MG/DL Final CALCIUM Date Value Ref Range Status 02/10/2024 8.8 8.4 - 10.2 MG/DL Final 02/09/2024 9.1 8.4 - 10.2 MG/DL Final 02/08/2024 8.9 8.4 - 10.2 MG/DL Final PHOSPHORUS Date Value Ref Range Status 01/17/2024 2.6 2.5 - 4.5 MG/DL Final Lab Results Component Value Date CREATSERUM 0.80 02/10/2024 BUN 19 02/10/2024 SODIUM 135 (L) 02/10/2024 POTASSIUM 4.3 02/10/2024 CHLORIDE 105 02/10/2024 CO2 29 02/10/2024 ROS: Constitution: No fever, no chill HEENT: No headache, no sinus issues CV: No chest pain, no palpitation Lung: No cough, No SOB Abd: No diarrhea, no constipation Neuro: No seizure, no loss of consciousness Heme: No bleeding, no bruise PHYSICAL EXAM: Wt Readings from Last 3 Encounters: 02/09/24 105.4 kg (232 lb 6.4 oz) 02/02/24 109.3 kg (241 lb) 12/08/23 103 kg (227 lb) Temp Readings from Last 3 Encounters: 02/10/24 98.6 F (37 C) (Oral) 02/02/24 98.8 F (37.1 C) (Temporal) 01/19/24 98.2 F (36.8 C) (Temporal) BP Readings from Last 3 Encounters: 02/10/24 127/77 01/19/24 137/62 12/16/23 135/89 Pulse Readings from Last 3 Encounters: 02/10/24 70 01/19/24 89 12/16/23 73 Gen: NAD, lying in bed, conversant HEENT: Atraumatic, PERRLA, moist membrane CV: RRR, nl S1 and S2, no m/g/r Lung: CTAB, no wheezing, no crackle Abd: +BS, nontender, no distended Ext: No rash, no clubbing, no cyanosis. No edema. Neuro: CNII-XII grossly intact, 5/5 strength, normal tone Skin: Warm and dry Images from the original note were not included. Infectious Disease progress note SUBJECTIVE History of Present Illness: Cuate Goodman 83 y.o. female with a history of left degenerative hip disease with ongoing left hip pain with reported decreased quality of life due to this condition. The patient was seen by Orthopedics and Dr. Heredia performed surgery 01/10 with a left total hip arthroplasty. Total hip arthroplastic surgery on 01/10 did not have noted complications or infectious issues per chart review. The patient was subsequently discharged after an admission from 01/10-01/18 on the med surg unit without stated ID issue. There was no antibiotics at time of discharge. Pathology from knee replacement surgery showed consistent with degenerative joint disease without mention of infection. Has history of previous right total hip arthroplasty and left total knee arthroplasty noted. Past medical history also includes obesity, degenerative joint disease and history of DVT and PE. Additional history includes right bundle-branch block, diastolic dysfunction, B12 deficiency, impaired fasting glucose with normal preoperative A1c, elevated uric acid level, GERD, urinary incontinence, history of abdominal aortic aneurysm. Patient does have a history of penicillin allergy resulting in hives but no other allergies to antibiotics noted. The patient denies any tobacco, alcohol or drug use. No prior use reported. Patient was subsequently admitted swing bed for rehabilitation on 01/18. Patient underwent pain control, PT/OT and ongoing medical management. Patient was noted to have erythema that began around her left hip site approximately on 01/18 or 01/19 per nursing report. There has been no described drainage from her hip. Patient denies any specific areas pain in her hip joint. There is no reported fevers or chills or night sweats at time of initial consultation. The patient denies any new respiratory, abdominal or urinary symptoms. Specifically she denies any UTI symptoms Infectious disease consult 01/21/2024, patient began on Zyvox for superficial postop infection, Interval events: 24 hour events reviewed. Patient feels that wounds in bilateral inner thigh areas have improved. 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 Less irritation and pain. Patient was using a pillow case as discussed with nursing between her legs to keep them . Patient states this is health. There is still some sensitivity there. No fevers or chills. Patient was begun on oral fluconazole as well as topical antifungal/steroid cream. Patient states that this is helping. I did discuss with wound care today evaluating her as there was already a consult in place for their evaluation and recommendations. Notes were reviewed. Patient denies any dysuria. No left hip symptomatology. Patient continues to hope to go home tomorrow and does not want anything to interfere with her discharge. Patient denies any other complaints on review of systems. ROS A complete review of systems are negative except those consistent with HPI OBJECTIVE Past Medical History: Diagnosis Date Aortic aneurysm Arthritis Deep vein thrombosis (DVT) GERD (gastroesophageal reflux disease) H/O unilateral nephrectomy per pt Past Medical History: Diagnosis Date Aortic aneurysm Arthritis Deep vein thrombosis (DVT) GERD (gastroesophageal reflux disease) H/O unilateral nephrectomy per pt Past Surgical History: Procedure Laterality Date ARTHROPLASTY HIP TOTAL Left 01/11/2024 Laterality: Left; Surgeon: Erik Heredia MD; Location: [facility] OR NEPHRECTOMY Right 1978 CHOLECYSTECTOMY HIP REPLACEMENT Right HYSTERECTOMY KNEE REPLACEMENT Bilateral left x 2 LITHOTRIPSY multiple Patient Active Problem List Diagnosis S/P total hip arthroplasty Gout Aneurysm of ascending aorta without rupture Aneurysmal dilatation Closed fracture of hand Fracture of metacarpal bone Gastro-esophageal reflux disease without esophagitis Hypomagnesemia Lumbar spondylosis Mixed stress and urge urinary incontinence Morbid (severe) obesity due to excess calories Other disorders of plasma-protein metabolism, not elsewhere classified Pulmonary embolism Solitary kidney, acquired Thoracic aortic ectasia Unilateral primary osteoarthritis, left hip Unsteadiness on feet S/P total left hip arthroplasty H/O unilateral nephrectomy Social History Socioeconomic History Marital status: Single Spouse name: Not on file Number of children: Not on file Years of education: Not on file Highest education level: Not on file Occupational History Not on file Tobacco Use Smoking status: Never Smokeless tobacco: Never Substance and Sexual Activity Alcohol use: Never Drug use: Never Sexual activity: Not on file Other Topics Concern Not on file Social History Narrative Not on file Social Determinants of Health Financial Resource Strain: Low Risk (01/21/2024) Overall Financial Resource Strain (CARDIA) Difficulty of Paying Living Expenses: Not very hard Food Insecurity: No Food Insecurity (01/21/2024) Hunger Vital Sign Worried About Running Out of Food in the Last Year: Never true Ran Out of Food in the Last Year: Never true Transportation Needs: No Transportation Needs (01/21/2024) PRAPARE - Transportation Lack of Transportation (Medical): No Lack of Transportation (Non-Medical): No Physical Activity: Not on file Stress: Not on file Social Connections: Not on file Intimate Partner Violence: Not At Risk (01/21/2024) Humiliation, Afraid, Rape, and Kick questionnaire Fear of Current or Ex-Partner: No Emotionally Abused: No Physically Abused: No Sexually Abused: No Housing Stability: Low Risk (01/21/2024) Housing Stability Vital Sign Unable to Pay for Housing in the Last Year: No Number of Places Lived in the Last Year: 1 Unstable Housing in the Last Year: No Current Facility-Administered Medications: Acetaminophen (TYLENOL) tablet 650 mg, 650 mg, Oral, Q4H PRN, Mohan Gomez MD, 650 mg at 02/07/24 0908 Allopurinol (ZYLOPRIM) tablet 100 mg, 100 mg, Oral, Daily, Mohan Gomez MD, 100 mg at 02/10/24 0842 apixaban (ELIQUIS) tablet 5 mg, 5 mg, Oral, Q12H, Mohan Gomez MD, 5 mg at 02/10/24 0842 bisacodyl (DULCOLAX) suppository 10 mg, 10 mg, Rectal, Daily PRN, Mohan Gomze MD clotrimazole-betamethasone (LOTRISONE) 1-0.05 % cream, , Topical, BID, Janet Moreno MD Cyclobenzaprine (FLEXERIL) tablet 5 mg, 5 mg, Oral, Q12H, Mohan Gomez MD, 5 mg at 02/10/24 0842 Docusate (COLACE) capsule 100 mg, 100 mg, Oral, Q12H, Mohan Gomez MD, 100 mg at 02/10/24 0842 ferrous sulfate tablet 325 mg, 325 mg, Oral, Daily, Mohan Gomez MD, 325 mg at 02/10/24 0842 fluconazole (DIFLUCAN) tablet 150 mg, 150 mg, Oral, Daily, Janet Moreno MD, 150 mg at 02/10/24 0841 hydroCODone-acetaminophen (NORCO) 5-325 MG per tablet 1 tablet, 1 tablet, Oral, Q4H PRN, Mohan Gomez MD, 1 tablet at 02/10/24 0615 hydroCODone-acetaminophen (NORCO) 5-325 MG per tablet 2 tablet, 2 tablet, Oral, Q4H PRN, Mohan Gomez MD, 2 tablet at 02/09/24 2226 lactulose (CHRONULAC) oral solution 20 g, 20 g, Oral, TID PRN, Mohan Gomez MD Lisinopril (PRINIVIL) tablet 5 mg, 5 mg, Oral, Daily, Mohan Gomez MD, 5 mg at 02/10/24 0842 multivitamin tablet 1 tablet, 1 tablet, Oral, Daily, Mohan Gomez MD, 1 tablet at 02/10/24 0842 ondansetron (ZOFRAN-ODT) disintegrating tablet 4 mg, 4 mg, Oral, Q4H PRN, Mohan Gomez MD, 4 mg at 02/05/24 0923 Pantoprazole (PROTONIX) tablet DR 40 mg, 40 mg, Oral, Before BKF, Mohan Gomez MD, 40 mg at 02/10/24 0611 Polyethylene glycol (MIRALAX) packet 17 g, 17 g, Oral, Q12H, Mohan Gomez MD, 17 g at 02/10/24 0841 Polyethylene glycol (MIRALAX) packet 17 g, 17 g, Oral, TID PRN, Mohan Gomez MD Povidone-Iodine (PROFEND) 10 % swab 1 Application, 1 Application, Topical, QHS, Mohan Gomez MD, 1 Application at 02/09/24 2228 senna-docusate (SENOKOT-S) 8.6-50 MG per tablet 2 tablet, 2 tablet, Oral, Q12H, Mohan Gomez MD, 2 tablet at 02/06/24 2157 Tolterodine (DETROL-LA) capsule XL 4 mg, 4 mg, Oral, Daily, Mohan Gomez MD, 4 mg at 02/10/24 0841 Zolpidem (AMBIEN) tablet 5 mg, 5 mg, Oral, QHS PRN, Mohan Gomez MD, 5 mg at 02/09/24 2226 Allergies Allergen Reactions Morphine Nausea and Vomiting Other Reaction(s): GI intolerance Oxycodone Nausea and Vomiting Other Reaction(s): GI intolerance Penicillins Hives Vitals: 02/09/24199902/09/24 2319 02/10/24 0726 02/10/24 0746 BP: 122/72 122/68 Pulse: 99 86 Resp: 18 20 Temp: 98.6 degrees F (37 degrees C) 97.9 degrees F (36.6 degrees C) TempSrc: Oral Oral SpO2: 95% 95% 94% Weight: 105.4 kg (232 lb 6.4 oz) Height: Intake/Output Summary (Last 24 hours) at 02/10/2024 1424 Last data filed at 02/10/2024 1222 Gross per 24 hour Intake 240 ml Output -- Net 240 ml Physical Exam: CONSTITUTIONAL: Alert and Oriented, in no distress, afebrile HEENT: Normocephalic and atraumatic, Sclera anicteric, PERRL, mild thrush improving, dry lips improving and no visualized HSV lesions CARDIAC: Normal rate, regular rhythm, normal heart sounds and intact distal pulses, no murmurs/rubs/clicks/gallops RESP: Effort normal and breath sounds are normal, but distant. No respiratory distress. No Wheezing/Rales/Cough, RA GI: Soft. Bowel sounds are normal. Nontender. Nondistended. Morbid obesity : No Suprapubic tenderness, patient was an erythematous open area of upper inner thighs in her which appears fungal as well as due to rubbing/trauma between legs. Left inflammation noted today. No drainage noted EXTREMITES: No cyanosis, clubbing; positive for history of left total knee arthroplasty. History of right total hip arthroplasty. Left total hip arthroplasty with incision with minimal erythema, overall improved, no pain, no drainage. Betadine is in place. Left greater than right lower extremity edema DERM: Skin is warm and dry. No rash noted MUSCULARSKELETAL: No septic arthritis noted NEUROLOGIC: Alert and communicative LAB RESULTS: WBC (WHITE BLOOD COUNT) Date/Time Value Ref Range Status 02/10/2024 04:36 AM 6.3 3.6 - 11.0 10*3/uL Final 02/09/2024 04:49 AM 6.4 3.6 - 11.0 10*3/uL Final 02/08/2024 04:50 AM 5.5 3.6 - 11.0 10*3/uL Final 02/07/2024 04:36 AM 5.1 3.6 - 11.0 10*3/uL Final 02/06/2024 04:53 AM 5.8 3.6 - 11.0 10*3/uL Final 02/05/2024 05:25 AM 5.0 3.6 - 11.0 10*3/uL Final 02/04/2024 05:25 AM 6.0 3.6 - 11.0 10*3/uL Final HEMOGLOBIN (HGB) Date/Time Value Ref Range Status 02/10/2024 04:36 AM 10.7 (L) 12.0 - 16.0 G/DL Final 02/09/2024 04:49 AM 11.4 (L) 12.0 - 16.0 G/DL Final 02/08/2024 04:50 AM 10.4 (L) 12.0 - 16.0 G/DL Final 02/07/2024 04:36 AM 10.5 (L) 12.0 - 16.0 G/DL Final 02/06/2024 04:53 AM 10.1 (L) 12.0 - 16.0 G/DL Final 02/05/2024 05:25 AM 10.4 (L) 12.0 - 16.0 G/DL Final 02/04/2024 05:25 AM 10.2 (L) 12.0 - 16.0 G/DL Final HEMATOCRIT (HCT) Date/Time Value Ref Range Status 02/10/2024 04:36 AM 31.7 (L) 36.0 - 48.0 % Final 02/09/2024 04:49 AM 34.2 (L) 36.0 - 48.0 % Final 02/08/2024 04:50 AM 30.8 (L) 36.0 - 48.0 % Final 02/07/2024 04:36 AM 31.7 (L) 36.0 - 48.0 % Final 02/06/2024 04:53 AM 29.6 (L) 36.0 - 48.0 % Final 02/05/2024 05:25 AM 30.8 (L) 36.0 - 48.0 % Final 02/04/2024 05:25 AM 30.0 (L) 36.0 - 48.0 % Final PLATELET COUNT Date/Time Value Ref Range Status 02/10/2024 04:36 AM 369 130 - 400 10*3/uL Final 02/09/2024 04:49 AM 401 (H) 130 - 400 10*3/uL Final 02/08/2024 04:50 AM 368 130 - 400 10*3/uL Final 02/07/2024 04:36 AM 366 130 - 400 10*3/uL Final 02/06/2024 04:53 AM 365 130 - 400 10*3/uL Final 02/05/2024 05:25 AM 378 130 - 400 10*3/uL Final 02/04/2024 05:25 AM 415 (H) 130 - 400 10*3/uL Final POTASSIUM Date/Time Value Ref Range Status 02/10/2024 04:36 AM 4.3 3.5 - 5.1 MMOL/L Final 02/09/2024 04:49 AM 4.5 3.5 - 5.1 MMOL/L Final 02/08/2024 04:50 AM 4.3 3.5 - 5.1 MMOL/L Final 02/07/2024 04:36 AM 4.3 3.5 - 5.1 MMOL/L Final 02/06/2024 04:53 AM 4.4 3.5 - 5.1 MMOL/L Final 02/05/2024 05:25 AM 4.3 3.5 - 5.1 MMOL/L Final 02/04/2024 05:25 AM 4.4 3.5 - 5.1 MMOL/L Final CHLORIDE Date/Time Value Ref Range Status 02/10/2024 04:36 AM 105 98 - 107 MMOL/L Final Comment: Please note: Triglyceride levels of 600mg/dL or higher may positively bias chloride results by approximately 2.1 mmol 02/09/2024 04:49 AM 104 98 - 107 MMOL/L Final Comment: Please note: Triglyceride levels of 600mg/dL or higher may positively bias chloride results by approximately 2.1 mmol 02/08/2024 04:50 AM 104 98 - 107 MMOL/L Final Comment: Please note: Triglyceride levels of 600mg/dL or higher may positively bias chloride results by approximately 2.1 mmol 02/07/2024 04:36 AM 105 98 - 107 MMOL/L Final Comment: Please note: Triglyceride levels of 600mg/dL or higher may positively bias chloride results by approximately 2.1 mmol 02/06/2024 04:53 AM 104 98 - 107 MMOL/L Final Comment: Please note: Triglyceride levels of 600mg/dL or higher may positively bias chloride results by approximately 2.1 mmol 02/05/2024 05:25 AM 104 98 - 107 MMOL/L Final Comment: Please note: Triglyceride levels of 600mg/dL or higher may positively bias chloride results by approximately 2.1 mmol 02/04/2024 05:25 AM 104 98 - 107 MMOL/L Final Comment: Please note: Triglyceride levels of 600mg/dL or higher may positively bias chloride results by approximately 2.1 mmol CARBON DIOXIDE (CO2) Date/Time Value Ref Range Status 02/10/2024 04:36 AM 29 22 - 30 MMOL/L Final 02/09/2024 04:49 AM 28 22 - 30 MMOL/L Final 02/08/2024 04:50 AM 30 22 - 30 MMOL/L Final 02/07/2024 04:36 AM 27 22 - 30 MMOL/L Final 02/06/2024 04:53 AM 29 22 - 30 MMOL/L Final 02/05/2024 05:25 AM 30 22 - 30 MMOL/L Final 02/04/2024 05:25 AM 31 (H) 22 - 30 MMOL/L Final Glucose Date/Time Value Ref Range Status 02/10/2024 04:36 AM 97 70 - 100 MG/DL Final Comment: NORMAL <100 mg/dL PREDIABETES 101-126 mg/dL DIABETES 126 mg/dL or higher 02/09/2024 04:49 AM 103 (H) 70 - 100 MG/DL Final Comment: NORMAL <100 mg/dL PREDIABETES 101-126 mg/dL DIABETES 126 mg/dL or higher 02/08/2024 04:50 AM 96 70 - 100 MG/DL Final Comment: NORMAL <100 mg/dL PREDIABETES 101-126 mg/dL DIABETES 126 mg/dL or higher 02/07/2024 04:36 AM 95 70 - 100 MG/DL Final Comment: NORMAL <100 mg/dL PREDIABETES 101-126 mg/dL DIABETES 126 mg/dL or higher 02/06/2024 04:53 AM 100 70 - 100 MG/DL Final Comment: NORMAL <100 mg/dL PREDIABETES 101-126 mg/dL DIABETES 126 mg/dL or higher 02/05/2024 05:25 AM 101 (H) 70 - 100 MG/DL Final Comment: NORMAL <100 mg/dL PREDIABETES 101-126 mg/dL DIABETES 126 mg/dL or higher 02/04/2024 05:25 AM 96 70 - 100 MG/DL Final Comment: NORMAL <100 mg/dL PREDIABETES 101-126 mg/dL DIABETES 126 mg/dL or higher BUN Date/Time Value Ref Range Status 02/10/2024 04:36 AM 19 7 - 20 MG/DL Final 02/09/2024 04:49 AM 20 7 - 20 MG/DL Final 02/08/2024 04:50 AM 14 7 - 20 MG/DL Final 02/07/2024 04:36 AM 11 7 - 20 MG/DL Final 02/06/2024 04:53 AM 17 7 - 20 MG/DL Final 02/05/2024 05:25 AM 14 7 - 20 MG/DL Final 02/04/2024 05:25 AM 18 7 - 20 MG/DL Final CREATININE SERUM Date/Time Value Ref Range Status 02/10/2024 04:36 AM 0.80 0.7 - 1.2 MG/DL Final 02/09/2024 04:49 AM 0.90 0.7 - 1.2 MG/DL Final 02/08/2024 04:50 AM 0.80 0.7 - 1.2 MG/DL Final 02/07/2024 04:36 AM 0.70 0.7 - 1.2 MG/DL Final 02/06/2024 04:53 AM 0.80 0.7 - 1.2 MG/DL Final 02/05/2024 05:25 AM 0.80 0.7 - 1.2 MG/DL Final 02/04/2024 05:25 AM 0.80 0.7 - 1.2 MG/DL Final Albumin Date/Time Value Ref Range Status 01/31/2024 06:12 AM 3.0 (L) 3.5 - 5.0 G/DL Final 01/23/2024 04:37 AM 2.6 (L) 3.5 - 5.0 G/DL Final 01/17/2024 04:31 AM 2.6 (L) 3.5 - 5.0 G/dl Final 12/16/2023 12:35 PM 4.0 3.5 - 5.0 G/dl Final CALCIUM Date/Time Value Ref Range Status 02/10/2024 04:36 AM 8.8 8.4 - 10.2 MG/DL Final 02/09/2024 04:49 AM 9.1 8.4 - 10.2 MG/DL Final 02/08/2024 04:50 AM 8.9 8.4 - 10.2 MG/DL Final 02/07/2024 04:36 AM 8.8 8.4 - 10.2 MG/DL Final 02/06/2024 04:53 AM 8.6 8.4 - 10.2 MG/DL Final 02/05/2024 05:25 AM 8.8 8.4 - 10.2 MG/DL Final 02/04/2024 05:25 AM 8.8 8.4 - 10.2 MG/DL Final ALKALINE PHOSPHATASE Date/Time Value Ref Range Status 01/31/2024 06:12 AM 107 38 - 126 IU/L Final 01/23/2024 04:37 AM 99 38 - 126 IU/L Final 12/16/2023 12:35 PM 89 38 - 126 IU/L Final AST Date/Time Value Ref Range Status 01/31/2024 06:12 AM 26 14 - 36 IU/L Final 01/23/2024 04:37 AM 25 14 - 36 IU/L Final 12/16/2023 12:35 PM 25 14 - 36 IU/L Final BILIRUBIN, TOTAL Date/Time Value Ref Range Status 01/31/2024 06:12 AM 0.2 0.2 - 1.3 MG/DL Final 01/23/2024 04:37 AM 0.3 0.2 - 1.3 MG/DL Final 12/16/2023 12:35 PM 0.3 0.2 - 1.3 MG/DL Final ANION GAP Date/Time Value Ref Range Status 02/10/2024 04:36 AM 1 (L) 8 - 16 MMOL/L Final 02/09/2024 04:49 AM 3 (L) 8 - 16 MMOL/L Final 02/08/2024 04:50 AM NEG 1 8 - 16 MMOL/L Final 02/07/2024 04:36 AM 1 (L) 8 - 16 MMOL/L Final 02/06/2024 04:53 AM 2 (L) 8 - 16 MMOL/L Final 02/05/2024 05:25 AM 1 (L) 8 - 16 MMOL/L Final 02/04/2024 05:25 AM 1 (L) 8 - 16 MMOL/L Final ALT Date/Time Value Ref Range Status 01/31/2024 06:12 AM 13 <35 IU/L Final 01/23/2024 04:37 AM 10 <35 IU/L Final 12/16/2023 12:35 PM 16 <35 IU/L Final ESTIMATED GFR, NON AMER Date/Time Value Ref Range Status 02/10/2024 04:36 AM 73 ml/min/1.73sq.m Final 02/09/2024 04:49 AM 64 ml/min/1.73sq.m Final 02/08/2024 04:50 AM 73 ml/min/1.73sq.m Final 02/07/2024 04:36 AM 85 ml/min/1.73sq.m Final 02/06/2024 04:53 AM 73 ml/min/1.73sq.m Final 02/05/2024 05:25 AM 73 ml/min/1.73sq.m Final 02/04/2024 05:25 AM 73 ml/min/1.73sq.m Final ESTIMATED GFR, Date/Time Value Ref Range Status 02/10/2024 04:36 AM 89 ml/min/1.73sq.m Final 02/09/2024 04:49 AM 77 ml/min/1.73sq.m Final 02/08/2024 04:50 AM 89 ml/min/1.73sq.m Final 02/07/2024 04:36 AM 103 ml/min/1.73sq.m Final 02/06/2024 04:53 AM 89 ml/min/1.73sq.m Final 02/05/2024 05:25 AM 89 ml/min/1.73sq.m Final 02/04/2024 05:25 AM 89 ml/min/1.73sq.m Final GFR COMMENT Date/Time Value Ref Range Status 02/10/2024 04:36 AM Average GFR for 70+ years old = 75. Final Comment: Chronic Kidney disease, GFR = <60. Kidney failure, GFR = <15. The GFR estimate is not adjusted for extreme body surface area or acute process, nor has it been validated for women or ethnic groups other than and . CBC Lab Results Component Value Date WBC 6.3 02/10/2024 HGB 10.7 (L) 02/10/2024 HCT 31.7 (L) 02/10/2024 PLATELET 369 02/10/2024 MCV 95.6 02/10/2024 EDIF Lab Results Component Value Date RBCDISTRIBU 15.2 (H) 02/10/2024 EOSINOPHILS 3.1 02/10/2024 EOSINOPHILS 0.2 02/10/2024 BASOPHILS 0.6 02/10/2024 BASOPHILS 0.0 02/10/2024 LYMPHOCYTABS 1.6 02/10/2024 PLATELET 369 02/10/2024 MPV 7.2 (L) 02/10/2024 Lab Results Component Value Date SODIUM 135 (L) 02/10/2024 POTASSIUM 4.3 02/10/2024 CHLORIDE 105 02/10/2024 CO2 29 02/10/2024 BUN 19 02/10/2024 CREATSERUM 0.80 02/10/2024 GLUCOSE 97 02/10/2024 Micro C difficile stool 01/23- Urine culture 01/20- 01/20 Nares - 12/16/2023 positive nares test for MSSA 12/15 urine test positive for Klebsiella only resistant to ampicillin and Macrobid XR CHEST 1 VIEW PORTABLE Final Result IMPRESSION: 1. Cardiomegaly. 2. Aortic tortuosity. 3. Minor effusion in the left lung base is suspected. 4. Both lungs are expanded. I am not seeing any obvious displaced fracture although detail is limited. There are accentuated interstitial markings which may well be chronic. ASSESSMENT AND PLAN . Cuate Goodman 83 y.o. with a history of multiple medical problems including DVT/PE, morbid obesity, degenerative joint disease presents with left hip pain undergoing left total hip arthroplasty on 01/10 showing degenerative changes Left total hip arthroplasty, concern for superficial wound infection -history of development of erythema around the incision site on 01/18 or 01/19 without systemic signs of infection -No drainage for wound cx -perioperative nares culture was positive for MSSA, repeat culture 01/20 negative -antibiotic therapy will be given especially in the setting of underlying hardware in the postop period to try to prevent any spread of superficial infection to deeper areas of hardware and this was discussed with her and all questions answered -s/p zyvox 01/20-01/26 -s/p Septra 01/26-01/29 -s/p mupirocin twice daily, 01/22-01/26 -recommend avoiding any rubbing of the undergarments, discussed with nursing -status post 10 day course of antibiotics, discontinued on 01/29. -overall slowly healing without clear evidence of infection -Betadine paint to Wound incision per orthopedics -x-ray shows good position of hardware -orthopedic follow up History of Klebsiella positive urine culture -urinalysis 12/15 with too numerous to count white cells and +3 bacteria -history of Klebsiella positive urine culture in November of 2023 only resistant to ampicillin and Macrobid -patient denies any urinary symptoms and UA bland, culture 01/20 negative Inflammatory markers -CRP 58, 42, 46, 33, 28, 28, 30, 28, 25, 27, 26, 26, 21, 21, 21, 22, 19, 22, 21, 18 -ESR 71, 75 -CRP gradually improving Anemia -hemoglobin 11.4, 10.7 -previous anemia workup in November of 2022 was negative with normal iron, B12 and folate studies -Fe 37 Healthcare maintenance -hemoglobin A1c normal at 5.7 on 12/15 History of DVT/PE -anticoagulation per primary team Diarrhea, history -C diff testing and GI pathogen panel negative during admission -suspicious for a viral process -Resolved Nutrition -dietitian to evaluate Medial bilateral thigh wounds, yeast ID -wound care was consulted on 02/03 for what was described as posterior thigh injuries that were purplish in color and recommended offloading. I am told that these areas have improved. -patient now complains of an inner thigh wound that appears to be due to skin rubbing and a fungal infection -Legs are being by nursing on swing bed with pillow cases to decrease irritation -I will reach out to Wound Care this am, pending their recommendations will use clotrimazole/steroid cream as well as fluconazole as there is a yeast component. Continue to keep area dry and clean Disposition -ongoing PT/OT -possible home on 02/10 Janet Moreno MD 02/10/24 1322 Physical Therapy Minutes Start Time 1322 Stop Time 1350 Time Calculation 28 PT Individual Minutes 28 minutes General Pain Documentation (Adult, OB, Peds) Presence of Pain denies pain/discomfort Presence of Pain Score (Auto-calculated) 0 Lying to Sitting on Side of Bed Reason if not Attempted Refused to perform CARE Score - Lying to Sitting on Side of Bed 7 Sit to Stand Equipment Used Sit to Stand Equipment used arm rest;two wheeled walker Sit to Stand Assistance Needed Adaptive equipment;Set-up / clean-up Physical Assistance Level No physical assistance CARE Score - Sit to Stand 5 Chair/Ukt-ze-[id number] Transfer Assistance Needed Set-up / clean-up;Adaptive equipment Physical Assistance Level No physical assistance CARE Score - Chair/Hao-ok-Rpivd Transfer 5 Toilet Transfer Assistance Needed Set-up / clean-up;Adaptive equipment Physical Assistance Level No physical assistance CARE Score - Toilet Transfer 5 Car Transfer Reason if not Attempted Refused to perform CARE Score - Car Transfer 7 Gait Assessment Gait Comments Pt ambulated functional distances and declined further distance d/t wounds on inner thighs. Walk 10 Feet Assistance Needed Set-up / clean-up;Adaptive equipment Physical Assistance Level No physical assistance CARE Score - Walk 10 Feet 5 1 Step (Curb) Assistance Needed Adaptive equipment;Set-up / clean-up Physical Assistance Level No physical assistance Comment Pt ascended and descended 2 [address] steps using FWW SUP CARE Score - 1 Step (Curb) 5 4 Steps Reason if not Attempted Refused to perform CARE Score - 4 Steps 7 12 Steps Reason if not Attempted Activity not applicable CARE Score - 12 Steps 9 Picking Up Object Assistance Needed Adaptive equipment;Set-up / clean-up Physical Assistance Level No physical assistance CARE Score - Picking Up Object 5 PT Barriers and Justification Impairments in Body Structure/Function aerobic capacity/endurance;strength;constantin n Pt reports being excited to go home tomorrow and see her dog. Pt has stated she does not want to walk or participate in PT tomorrow as she does not want to wear herself out prior to going home. Patient is seen by wound care nursing provider Cherri Tejeda CNP to evaluate groin excoriation. The bilateral groin areas are reddened and dry, There is a pillow between the thighs helping to keep the skin dry. Patinet states she feels ithe area feels better since the antifungal oral medication had been started. Rehab nurse asking if wound care physician is agreeable to topical antifungal, patient will begin topical treatment today. Wound care provider is updating Dr Moreno. 02/10/24 0849 Time In/Out Time In 0849 Time Out 0851 Total Visit Time 2 minutes OT Therapy Completed Attempted Attempted Reason Patient declined session (Patient reported already completed ADLs last night and this morning. Reported no concerns about going home and declined OT session.) DEVIN Sullivan 02/10/2024 02/10/24 1000 Time In/Out Time In 1000 PT Therapy Completed Attempted Attempted Reason Patient declined session (Pt declined d/t wanting to wait till wound care came to take a look at her inner thigh area. Pt reports she will walke this PM.) DAILY PROGRESS NOTE Admit Date: 01/19/2024 Date of Evaluation: 1:47 PM [facility] LOS: 21 days IMPRESSION AND PLAN: 83 y.o. 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 1) Severe left hip arthritis s/p total hip arthroplasty PT/OT Continue with eliquis Continue with flexeril Continue with norco PRN Continue with senokot PRN Continue with tramadol PRN Encourage compliance with PT/OT. Persistent weakness noted. 2) Chronic normocytic anemia H and H 9.8 -> 9.5 -> 10.7 -> 10.0 -> 10.1 -> 9.8 -> 10.3 -> 10.6 -> 10.0 -> 10.3 -> 10.0 -> 10.6 -> 10.5 -> 10.7 -> 10.4 -> 10.1 -> 10.5 -> 10.4 -> 11.4 and 29.2 -> 27.7 -> 31.8 -> 29.1 -> 29.3 -> 29.4 -> 29.0 -> 30.7 -> 31.3 -> >29.3 -> 29.9 -> 29.3 -> 31.4 -> 31.1 -> 31.8 -> 30.8 -> 29.6 -> 31.7 -> >30.8 -> 34.2 Fe 29, TIBC 144, transferrin 20 Continue with iron Serial CBC 3) Gout Currently on allopurinol 4) GERD Currently on protonix. 5) Diarrhea Probably viral C. Diff is negative GI panel is negative. Workup is negative to-date Supportive care. Monitor for hypotension Monitor for hypokalemia Improved. 6) Cellulitis Antibiotic therapy will be given especially in the setting of underlying hardware in the postop period to try to prevent any spread of superficial infection to deeper areas of hardware CRP 58.3 -> 33.6 -> 28.4 -> 30.5 -> 28.9 -> 25.8 -> 26.1 -> 21.4-> 26.3 -> 21.9 -> 22.7 -> >19.6 -> 21.2, stable. Finished a course of linezolid Finished a course of bactrobran Finished a course of bactrim DS BID. Continue with nystatin cream Encourage PO intake. Followed by ID 7) HTN SBP 120/90s Continue with lisinopril. 8) Mild oral thrush Nystatin swish and swallow, continue symptomatic treatment of lip dryness 9) Urinary incontinence UA is bland. Supportive care 10) Rash Rash noted on bilateral upper thigh Appears friction rub rash Supportive care. SUBJECTIVE: Patient seen and examined. Chart, medications, labs reviewed. Office Visit on 02/02/2024 Component Date Value Ref Range Status BSA 02/02/2024 2.18 m2 In process LABS Labs-ABGs Labs-CBC @[id number]@ Labs-Chem 7([facility]) Bun/Creat/Cl/CO2/Glucose: 20/0.90/104/28/103 (02/08 449) Na/K+/Phos/Mg/Ca: 135/4.5/--/--/9.1 (02/08 449) Labs-Coags WBC (WHITE BLOOD COUNT) Date Value Ref Range Status 02/09/2024 6.4 3.6 - 11.0 10*3/uL Final 02/08/2024 5.5 3.6 - 11.0 10*3/uL Final 02/07/2024 5.1 3.6 - 11.0 10*3/uL Final HEMOGLOBIN (HGB) Date Value Ref Range Status 02/09/2024 11.4 (L) 12.0 - 16.0 G/DL Final 02/08/2024 10.4 (L) 12.0 - 16.0 G/DL Final 02/07/2024 10.5 (L) 12.0 - 16.0 G/DL Final HEMATOCRIT (HCT) Date Value Ref Range Status 02/09/2024 34.2 (L) 36.0 - 48.0 % Final 02/08/2024 30.8 (L) 36.0 - 48.0 % Final 02/07/2024 31.7 (L) 36.0 - 48.0 % Final PLATELET COUNT Date Value Ref Range Status 02/09/2024 401 (H) 130 - 400 10*3/uL Final 02/08/2024 368 130 - 400 10*3/uL Final 02/07/2024 366 130 - 400 10*3/uL Final SODIUM Date Value Ref Range Status 02/09/2024 135 (L) 137 - 145 MMOL/L Final 02/08/2024 133 (L) 137 - 145 MMOL/L Final 02/07/2024 133 (L) 137 - 145 MMOL/L Final CHLORIDE Date Value Ref Range Status 02/09/2024 104 98 - 107 MMOL/L Final Comment: Please note: Triglyceride levels of 600mg/dL or higher may positively bias chloride results by approximately 2.1 mmol 02/08/2024 104 98 - 107 MMOL/L Final Comment: Please note: Triglyceride levels of 600mg/dL or higher may positively bias chloride results by approximately 2.1 mmol 02/07/2024 105 98 - 107 MMOL/L Final Comment: Please note: Triglyceride levels of 600mg/dL or higher may positively bias chloride results by approximately 2.1 mmol BUN Date Value Ref Range Status 02/09/2024 20 7 - 20 MG/DL Final 02/08/2024 14 7 - 20 MG/DL Final 02/07/2024 11 7 - 20 MG/DL Final POTASSIUM Date Value Ref Range Status 02/09/2024 4.5 3.5 - 5.1 MMOL/L Final 02/08/2024 4.3 3.5 - 5.1 MMOL/L Final 02/07/2024 4.3 3.5 - 5.1 MMOL/L Final CREATININE SERUM Date Value Ref Range Status 02/09/2024 0.90 0.7 - 1.2 MG/DL Final 02/08/2024 0.80 0.7 - 1.2 MG/DL Final 02/07/2024 0.70 0.7 - 1.2 MG/DL Final Glucose Date Value Ref Range Status 02/09/2024 103 (H) 70 - 100 MG/DL Final Comment: NORMAL <100 mg/dL PREDIABETES 101-126 mg/dL DIABETES 126 mg/dL or higher 02/08/2024 96 70 - 100 MG/DL Final Comment: NORMAL <100 mg/dL PREDIABETES 101-126 mg/dL DIABETES 126 mg/dL or higher 02/07/2024 95 70 - 100 MG/DL Final Comment: NORMAL <100 mg/dL PREDIABETES 101-126 mg/dL DIABETES 126 mg/dL or higher PT Date Value Ref Range Status 01/11/2024 14.2 11.8 - 14.4 SEC Final 12/16/2023 17.9 (H) 11.8 - 14.4 SEC Final PROTEIN, TOTAL Date Value Ref Range Status 01/31/2024 6.1 (L) 6.3 - 8.2 GM/DL Final 01/23/2024 5.6 (L) 6.3 - 8.2 GM/DL Final 12/16/2023 7.2 6.3 - 8.2 GM/DL Final Albumin Date Value Ref Range Status 01/31/2024 3.0 (L) 3.5 - 5.0 G/DL Final 01/23/2024 2.6 (L) 3.5 - 5.0 G/DL Final 01/17/2024 2.6 (L) 3.5 - 5.0 G/dl Final AST Date Value Ref Range Status 01/31/2024 26 14 - 36 IU/L Final 01/23/2024 25 14 - 36 IU/L Final 12/16/2023 25 14 - 36 IU/L Final ALT Date Value Ref Range Status 01/31/2024 13 <35 IU/L Final 01/23/2024 10 <35 IU/L Final 12/16/2023 16 <35 IU/L Final BILIRUBIN, TOTAL Date Value Ref Range Status 01/31/2024 0.2 0.2 - 1.3 MG/DL Final CALCIUM Date Value Ref Range Status 02/09/2024 9.1 8.4 - 10.2 MG/DL Final 02/08/2024 8.9 8.4 - 10.2 MG/DL Final 02/07/2024 8.8 8.4 - 10.2 MG/DL Final PHOSPHORUS Date Value Ref Range Status 01/17/2024 2.6 2.5 - 4.5 MG/DL Final Lab Results Component Value Date CREATSERUM 0.90 02/09/2024 BUN 20 02/09/2024 SODIUM 135 (L) 02/09/2024 POTASSIUM 4.5 02/09/2024 CHLORIDE 104 02/09/2024 CO2 28 02/09/2024 ROS: Constitution: No fever, no chill HEENT: No headache, no sinus issues CV: No chest pain, no palpitation Lung: No cough, No SOB Abd: No diarrhea, no constipation Neuro: No seizure, no loss of consciousness Heme: No bleeding, no bruise PHYSICAL EXAM: Wt Readings from Last 3 Encounters: 02/09/24 105.4 kg (232 lb 6.4 oz) 02/02/24 109.3 kg (241 lb) 12/08/23 103 kg (227 lb) Temp Readings from Last 3 Encounters: 02/09/24 98.6 F (37 C) (Oral) 02/02/24 98.8 F (37.1 C) (Temporal) 01/19/24 98.2 F (36.8 C) (Temporal) BP Readings from Last 3 Encounters: 02/09/24 122/72 01/19/24 137/62 12/16/23 135/89 Pulse Readings from Last 3 Encounters: 02/09/24 99 01/19/24 89 12/16/23 73 Gen: NAD, lying in bed, conversant HEENT: Atraumatic, PERRLA, moist membrane CV: RRR, nl S1 and S2, no m/g/r Lung: CTAB, no wheezing, no crackle Abd: +BS, nontender, no distended Ext: No rash, no clubbing, no cyanosis. No edema. Neuro: CNII-XII grossly intact, 5/5 strength, normal tone Skin: Warm and dry Images from the original note were not included. Infectious Disease progress note SUBJECTIVE History of Present Illness: Cuate Goodman 83 y.o. female with a history of left degenerative hip disease with ongoing left hip pain with reported decreased quality of life due to this condition. The patient was seen by Orthopedics and Dr. Heredia performed surgery 01/10 with a left total hip arthroplasty. Total hip arthroplastic surgery on 01/10 did not have noted complications or infectious issues per chart review. The patient was subsequently discharged after an admission from 01/10-01/18 on the med surg unit without stated ID issue. There was no antibiotics at time of discharge. Pathology from knee replacement surgery showed consistent with degenerative joint disease without mention of infection. Has history of previous right total hip arthroplasty and left total knee arthroplasty noted. Past medical history also includes obesity, degenerative joint disease and history of DVT and PE. Additional history includes right bundle-branch block, diastolic dysfunction, B12 deficiency, impaired fasting glucose with normal preoperative A1c, elevated uric acid level, GERD, urinary incontinence, history of abdominal aortic aneurysm. Patient does have a history of penicillin allergy resulting in hives but no other allergies to antibiotics noted. The patient denies any tobacco, alcohol or drug use. No prior use reported. Patient was subsequently admitted swing bed for rehabilitation on 01/18. Patient underwent pain control, PT/OT and ongoing medical management. Patient was noted to have erythema that began around her left hip site approximately on 01/18 or 01/19 per nursing report. There has been no described drainage from her hip. Patient denies any specific areas pain in her hip joint. There is no reported fevers or chills or night sweats at time of initial consultation. The patient denies any new respiratory, abdominal or urinary symptoms. Specifically she denies any UTI symptoms Infectious disease consult 01/21/2024, patient began on Zyvox for superficial postop infection, Interval events: 24 hour events reviewed. Called to see this patient denies because of wounds between her legs that has continued and noted history of drainage of serous fluid but now is more dry. It is inflamed and causes stinging pain. Denies any dysuria or vaginal discharge. Left hip area is stable and overall improved. Patient denies any nausea or vomiting. Patient did not walk today with physical therapy because of this area between her legs being very sensitive ROS A complete review of systems are negative except those consistent with HPI OBJECTIVE Past Medical History: Diagnosis Date Aortic aneurysm Arthritis Deep vein thrombosis (DVT) GERD (gastroesophageal reflux disease) H/O unilateral nephrectomy per pt Past Medical History: Diagnosis Date Aortic aneurysm Arthritis Deep vein thrombosis (DVT) GERD (gastroesophageal reflux disease) H/O unilateral nephrectomy per pt Past Surgical History: Procedure Laterality Date ARTHROPLASTY HIP TOTAL Left 01/11/2024 Laterality: Left; Surgeon: Erik Heredia MD; Location: [facility] OR NEPHRECTOMY Right 1978 CHOLECYSTECTOMY HIP REPLACEMENT Right HYSTERECTOMY KNEE REPLACEMENT Bilateral left x 2 LITHOTRIPSY multiple Patient Active Problem List Diagnosis S/P total hip arthroplasty Gout Aneurysm of ascending aorta without rupture Aneurysmal dilatation Closed fracture of hand Fracture of metacarpal bone Gastro-esophageal reflux disease without esophagitis Hypomagnesemia Lumbar spondylosis Mixed stress and urge urinary incontinence Morbid (severe) obesity due to excess calories Other disorders of plasma-protein metabolism, not elsewhere classified Pulmonary embolism Solitary kidney, acquired Thoracic aortic ectasia Unilateral primary osteoarthritis, left hip Unsteadiness on feet S/P total left hip arthroplasty H/O unilateral nephrectomy Social History Socioeconomic History Marital status: Single Spouse name: Not on file Number of children: Not on file Years of education: Not on file Highest education level: Not on file Occupational History Not on file Tobacco Use Smoking status: Never Smokeless tobacco: Never Substance and Sexual Activity Alcohol use: Never Drug use: Never Sexual activity: Not on file Other Topics Concern Not on file Social History Narrative Not on file Social Determinants of Health Financial Resource Strain: Low Risk (01/21/2024) Overall Financial Resource Strain (CARDIA) Difficulty of Paying Living Expenses: Not very hard Food Insecurity: No Food Insecurity (01/21/2024) Hunger Vital Sign Worried About Running Out of Food in the Last Year: Never true Ran Out of Food in the Last Year: Never true Transportation Needs: No Transportation Needs (01/21/2024) PRAPARE - Transportation Lack of Transportation (Medical): No Lack of Transportation (Non-Medical): No Physical Activity: Not on file Stress: Not on file Social Connections: Not on file Intimate Partner Violence: Not At Risk (01/21/2024) Humiliation, Afraid, Rape, and Kick questionnaire Fear of Current or Ex-Partner: No Emotionally Abused: No Physically Abused: No Sexually Abused: No Housing Stability: Low Risk (01/21/2024) Housing Stability Vital Sign Unable to Pay for Housing in the Last Year: No Number of Places Lived in the Last Year: 1 Unstable Housing in the Last Year: No Current Facility-Administered Medications: Acetaminophen (TYLENOL) tablet 650 mg, 650 mg, Oral, Q4H PRN, Mohan Gomez MD, 650 mg at 02/07/24 0908 Allopurinol (ZYLOPRIM) tablet 100 mg, 100 mg, Oral, Daily, Mohan Gomez MD, 100 mg at 02/09/24 0838 apixaban (ELIQUIS) tablet 5 mg, 5 mg, Oral, Q12H, Mohan Gomez MD, 5 mg at 02/09/24 0838 bisacodyl (DULCOLAX) suppository 10 mg, 10 mg, Rectal, Daily PRN, Mohan Gomez MD Cyclobenzaprine (FLEXERIL) tablet 5 mg, 5 mg, Oral, Q12H, Mohan Gomez MD, 5 mg at 02/09/24 0838 Docusate (COLACE) capsule 100 mg, 100 mg, Oral, Q12H, Mohan Gomez MD, 100 mg at 02/09/24 0838 ferrous sulfate tablet 325 mg, 325 mg, Oral, Daily, Mohan Gomez MD, 325 mg at 02/09/24 0838 hydroCODone-acetaminophen (NORCO) 5-325 MG per tablet 1 tablet, 1 tablet, Oral, Q4H PRN, Mohan Gomez MD, 1 tablet at 02/09/24 1059 hydroCODone-acetaminophen (NORCO) 5-325 MG per tablet 2 tablet, 2 tablet, Oral, Q4H PRN, Mohan Gomez MD, 2 tablet at 02/08/24 2328 lactulose (CHRONULAC) oral solution 20 g, 20 g, Oral, TID PRN, Mohan Gomez MD Lisinopril (PRINIVIL) tablet 5 mg, 5 mg, Oral, Daily, Mohan Gomez MD, 5 mg at 02/09/24 0838 multivitamin tablet 1 tablet, 1 tablet, Oral, Daily, Mohan Gomez MD, 1 tablet at 02/09/24 0838 nystatin (MYCOSTATIN) cream 1 Application, 1 Application, Topical, Q12H, Mohan Gomez MD, 1 Application at 02/09/24 0839 ondansetron (ZOFRAN-ODT) disintegrating tablet 4 mg, 4 mg, Oral, Q4H PRN, Mohan Gomez MD, 4 mg at 02/05/24 09 Pantoprazole (PROTONIX) tablet DR 40 mg, 40 mg, Oral, Before BKF, Mohan Gomez MD, 40 mg at 02/09/24 05 Polyethylene glycol (MIRALAX) packet 17 g, 17 g, Oral, Q12H, Mohan Gomez MD, 17 g at 02/08/242017 Polyethylene glycol (MIRALAX) packet 17 g, 17 g, Oral, TID PRN, Mohan Gomez MD Povidone-Iodine (PROFEND) 10 % swab 1 Application, 1 Application, Topical, QHS, Mohan Gomez MD, 1 Application at 02/08/242155 senna-docusate (SENOKOT-S) 8.6-50 MG per tablet 2 tablet, 2 tablet, Oral, Q12H, Mohan Gomez MD, 2 tablet at 02/06/242156 Tolterodine (DETROL-LA) capsule XL 4 mg, 4 mg, Oral, Daily, Mohan Gomez MD, 4 mg at 02/09/24 08 Zolpidem (AMBIEN) tablet 5 mg, 5 mg, Oral, QHS PRN, Mohan Gomez MD, 5 mg at 02/08/24 232 Allergies Allergen Reactions Morphine Nausea and Vomiting Other Reaction(s): GI intolerance Oxycodone Nausea and Vomiting Other Reaction(s): GI intolerance Penicillins Hives Vitals: 02/08/24 1926 02/08/24 2116 02/09/24 0722 02/09/24 0758 BP: 118/73 Pulse: 85 Resp: 20 Temp: 97.8 degrees F (36.6 degrees C) TempSrc: Oral SpO2: 93% 91% 93% Weight: 107.4 kg (236 lb 12.8 oz) Height: No intake or output data in the 24 hours ending 02/09/241954 Physical Exam: CONSTITUTIONAL: Alert and Oriented, in no distress, afebrile HEENT: Normocephalic and atraumatic, Sclera anicteric, PERRL, mild thrush improving, dry lips improving and no visualized HSV lesions CARDIAC: Normal rate, regular rhythm, normal heart sounds and intact distal pulses, no murmurs/rubs/clicks/gallops RESP: Effort normal and breath sounds are normal, but distant. No respiratory distress. No Wheezing/Rales/Cough, RA GI: Soft. Bowel sounds are normal. Nontender. Nondistended. Morbid obesity : No Suprapubic tenderness, patient was an erythematous open area of upper thighs in her which appears fungal as well as due to rubbing EXTREMITES: No cyanosis, clubbing; positive for history of left total knee arthroplasty. History of right total hip arthroplasty. Left total hip arthroplasty with incision with minimal erythema, overall improved, no pain, no drainage. Betadine is in place. Left greater than right lower extremity edema DERM: Skin is warm and dry. No rash noted MUSCULARSKELETAL: No septic arthritis noted NEUROLOGIC: Alert and communicative LAB RESULTS: WBC (WHITE BLOOD COUNT) Date/Time Value Ref Range Status 02/09/2024 04:49 AM 6.4 3.6 - 11.0 10*3/uL Final 02/08/2024 04:50 AM 5.5 3.6 - 11.0 10*3/uL Final 02/07/2024 04:36 AM 5.1 3.6 - 11.0 10*3/uL Final 02/06/2024 04:53 AM 5.8 3.6 - 11.0 10*3/uL Final 02/05/2024 05:25 AM 5.0 3.6 - 11.0 10*3/uL Final 02/04/2024 05:25 AM 6.0 3.6 - 11.0 10*3/uL Final 02/03/2024 05:52 AM 6.3 3.6 - 11.0 10*3/uL Final HEMOGLOBIN (HGB) Date/Time Value Ref Range Status 02/09/2024 04:49 AM 11.4 (L) 12.0 - 16.0 G/DL Final 02/08/2024 04:50 AM 10.4 (L) 12.0 - 16.0 G/DL Final 02/07/2024 04:36 AM 10.5 (L) 12.0 - 16.0 G/DL Final 02/06/2024 04:53 AM 10.1 (L) 12.0 - 16.0 G/DL Final 02/05/2024 05:25 AM 10.4 (L) 12.0 - 16.0 G/DL Final 02/04/2024 05:25 AM 10.2 (L) 12.0 - 16.0 G/DL Final 02/03/2024 05:52 AM 10.7 (L) 12.0 - 16.0 G/DL Final HEMATOCRIT (HCT) Date/Time Value Ref Range Status 02/09/2024 04:49 AM 34.2 (L) 36.0 - 48.0 % Final 02/08/2024 04:50 AM 30.8 (L) 36.0 - 48.0 % Final 02/07/2024 04:36 AM 31.7 (L) 36.0 - 48.0 % Final 02/06/2024 04:53 AM 29.6 (L) 36.0 - 48.0 % Final 02/05/2024 05:25 AM 30.8 (L) 36.0 - 48.0 % Final 02/04/2024 05:25 AM 30.0 (L) 36.0 - 48.0 % Final 02/03/2024 05:52 AM 31.8 (L) 36.0 - 48.0 % Final PLATELET COUNT Date/Time Value Ref Range Status 02/09/2024 04:49 AM 401 (H) 130 - 400 10*3/uL Final 02/08/2024 04:50 AM 368 130 - 400 10*3/uL Final 02/07/2024 04:36 AM 366 130 - 400 10*3/uL Final 02/06/2024 04:53 AM 365 130 - 400 10*3/uL Final 02/05/2024 05:25 AM 378 130 - 400 10*3/uL Final 02/04/2024 05:25 AM 415 (H) 130 - 400 10*3/uL Final 02/03/2024 05:52 AM 472 (H) 130 - 400 10*3/uL Final POTASSIUM Date/Time Value Ref Range Status 02/09/2024 04:49 AM 4.5 3.5 - 5.1 MMOL/L Final 02/08/2024 04:50 AM 4.3 3.5 - 5.1 MMOL/L Final 02/07/2024 04:36 AM 4.3 3.5 - 5.1 MMOL/L Final 02/06/2024 04:53 AM 4.4 3.5 - 5.1 MMOL/L Final 02/05/2024 05:25 AM 4.3 3.5 - 5.1 MMOL/L Final 02/04/2024 05:25 AM 4.4 3.5 - 5.1 MMOL/L Final 02/03/2024 05:52 AM 4.4 3.5 - 5.1 MMOL/L Final CHLORIDE Date/Time Value Ref Range Status 02/09/2024 04:49 AM 104 98 - 107 MMOL/L Final Comment: Please note: Triglyceride levels of 600mg/dL or higher may positively bias chloride results by approximately 2.1 mmol 02/08/2024 04:50 AM 104 98 - 107 MMOL/L Final Comment: Please note: Triglyceride levels of 600mg/dL or higher may positively bias chloride results by approximately 2.1 mmol 02/07/2024 04:36 AM 105 98 - 107 MMOL/L Final Comment: Please note: Triglyceride levels of 600mg/dL or higher may positively bias chloride results by approximately 2.1 mmol 02/06/2024 04:53 AM 104 98 - 107 MMOL/L Final Comment: Please note: Triglyceride levels of 600mg/dL or higher may positively bias chloride results by approximately 2.1 mmol 02/05/2024 05:25 AM 104 98 - 107 MMOL/L Final Comment: Please note: Triglyceride levels of 600mg/dL or higher may positively bias chloride results by approximately 2.1 mmol 02/04/2024 05:25 AM 104 98 - 107 MMOL/L Final Comment: Please note: Triglyceride levels of 600mg/dL or higher may positively bias chloride results by approximately 2.1 mmol 02/03/2024 05:52 AM 104 98 - 107 MMOL/L Final Comment: Please note: Triglyceride levels of 600mg/dL or higher may positively bias chloride results by approximately 2.1 mmol CARBON DIOXIDE (CO2) Date/Time Value Ref Range Status 02/09/2024 04:49 AM 28 22 - 30 MMOL/L Final 02/08/2024 04:50 AM 30 22 - 30 MMOL/L Final 02/07/2024 04:36 AM 27 22 - 30 MMOL/L Final 02/06/2024 04:53 AM 29 22 - 30 MMOL/L Final 02/05/2024 05:25 AM 30 22 - 30 MMOL/L Final 02/04/2024 05:25 AM 31 (H) 22 - 30 MMOL/L Final 02/03/2024 05:52 AM 29 22 - 30 MMOL/L Final Glucose Date/Time Value Ref Range Status 02/09/2024 04:49 AM 103 (H) 70 - 100 MG/DL Final Comment: NORMAL <100 mg/dL PREDIABETES 101-126 mg/dL DIABETES 126 mg/dL or higher 02/08/2024 04:50 AM 96 70 - 100 MG/DL Final Comment: NORMAL <100 mg/dL PREDIABETES 101-126 mg/dL DIABETES 126 mg/dL or higher 02/07/2024 04:36 AM 95 70 - 100 MG/DL Final Comment: NORMAL <100 mg/dL PREDIABETES 101-126 mg/dL DIABETES 126 mg/dL or higher 02/06/2024 04:53 AM 100 70 - 100 MG/DL Final Comment: NORMAL <100 mg/dL PREDIABETES 101-126 mg/dL DIABETES 126 mg/dL or higher 02/05/2024 05:25 AM 101 (H) 70 - 100 MG/DL Final Comment: NORMAL <100 mg/dL PREDIABETES 101-126 mg/dL DIABETES 126 mg/dL or higher 02/04/2024 05:25 AM 96 70 - 100 MG/DL Final Comment: NORMAL <100 mg/dL PREDIABETES 101-126 mg/dL DIABETES 126 mg/dL or higher 02/03/2024 05:52 AM 100 70 - 100 MG/DL Final Comment: NORMAL <100 mg/dL PREDIABETES 101-126 mg/dL DIABETES 126 mg/dL or higher BUN Date/Time Value Ref Range Status 02/09/2024 04:49 AM 20 7 - 20 MG/DL Final 02/08/2024 04:50 AM 14 7 - 20 MG/DL Final 02/07/2024 04:36 AM 11 7 - 20 MG/DL Final 02/06/2024 04:53 AM 17 7 - 20 MG/DL Final 02/05/2024 05:25 AM 14 7 - 20 MG/DL Final 02/04/2024 05:25 AM 18 7 - 20 MG/DL Final 02/03/2024 05:52 AM 17 7 - 20 MG/DL Final CREATININE SERUM Date/Time Value Ref Range Status 02/09/2024 04:49 AM 0.90 0.7 - 1.2 MG/DL Final 02/08/2024 04:50 AM 0.80 0.7 - 1.2 MG/DL Final 02/07/2024 04:36 AM 0.70 0.7 - 1.2 MG/DL Final 02/06/2024 04:53 AM 0.80 0.7 - 1.2 MG/DL Final 02/05/2024 05:25 AM 0.80 0.7 - 1.2 MG/DL Final 02/04/2024 05:25 AM 0.80 0.7 - 1.2 MG/DL Final 02/03/2024 05:52 AM 0.90 0.7 - 1.2 MG/DL Final Albumin Date/Time Value Ref Range Status 01/31/2024 06:12 AM 3.0 (L) 3.5 - 5.0 G/DL Final 01/23/2024 04:37 AM 2.6 (L) 3.5 - 5.0 G/DL Final 01/17/2024 04:31 AM 2.6 (L) 3.5 - 5.0 G/dl Final 12/16/2023 12:35 PM 4.0 3.5 - 5.0 G/dl Final CALCIUM Date/Time Value Ref Range Status 02/09/2024 04:49 AM 9.1 8.4 - 10.2 MG/DL Final 02/08/2024 04:50 AM 8.9 8.4 - 10.2 MG/DL Final 02/07/2024 04:36 AM 8.8 8.4 - 10.2 MG/DL Final 02/06/2024 04:53 AM 8.6 8.4 - 10.2 MG/DL Final 02/05/2024 05:25 AM 8.8 8.4 - 10.2 MG/DL Final 02/04/2024 05:25 AM 8.8 8.4 - 10.2 MG/DL Final 02/03/2024 05:52 AM 9.1 8.4 - 10.2 MG/DL Final ALKALINE PHOSPHATASE Date/Time Value Ref Range Status 01/31/2024 06:12 AM 107 38 - 126 IU/L Final 01/23/2024 04:37 AM 99 38 - 126 IU/L Final 12/16/2023 12:35 PM 89 38 - 126 IU/L Final AST Date/Time Value Ref Range Status 01/31/2024 06:12 AM 26 14 - 36 IU/L Final 01/23/2024 04:37 AM 25 14 - 36 IU/L Final 12/16/2023 12:35 PM 25 14 - 36 IU/L Final BILIRUBIN, TOTAL Date/Time Value Ref Range Status 01/31/2024 06:12 AM 0.2 0.2 - 1.3 MG/DL Final 01/23/2024 04:37 AM 0.3 0.2 - 1.3 MG/DL Final 12/16/2023 12:35 PM 0.3 0.2 - 1.3 MG/DL Final ANION GAP Date/Time Value Ref Range Status 02/09/2024 04:49 AM 3 (L) 8 - 16 MMOL/L Final 02/08/2024 04:50 AM NEG 1 8 - 16 MMOL/L Final 02/07/2024 04:36 AM 1 (L) 8 - 16 MMOL/L Final 02/06/2024 04:53 AM 2 (L) 8 - 16 MMOL/L Final 02/05/2024 05:25 AM 1 (L) 8 - 16 MMOL/L Final 02/04/2024 05:25 AM 1 (L) 8 - 16 MMOL/L Final 02/03/2024 05:52 AM 2 (L) 8 - 16 MMOL/L Final ALT Date/Time Value Ref Range Status 01/31/2024 06:12 AM 13 <35 IU/L Final 01/23/2024 04:37 AM 10 <35 IU/L Final 12/16/2023 12:35 PM 16 <35 IU/L Final ESTIMATED GFR, NON AMER Date/Time Value Ref Range Status 02/09/2024 04:49 AM 64 ml/min/1.73sq.m Final 02/08/2024 04:50 AM 73 ml/min/1.73sq.m Final 02/07/2024 04:36 AM 85 ml/min/1.73sq.m Final 02/06/2024 04:53 AM 73 ml/min/1.73sq.m Final 02/05/2024 05:25 AM 73 ml/min/1.73sq.m Final 02/04/2024 05:25 AM 73 ml/min/1.73sq.m Final 02/03/2024 05:52 AM 64 ml/min/1.73sq.m Final ESTIMATED GFR, Date/Time Value Ref Range Status 02/09/2024 04:49 AM 77 ml/min/1.73sq.m Final 02/08/2024 04:50 AM 89 ml/min/1.73sq.m Final 02/07/2024 04:36 AM 103 ml/min/1.73sq.m Final 02/06/2024 04:53 AM 89 ml/min/1.73sq.m Final 02/05/2024 05:25 AM 89 ml/min/1.73sq.m Final 02/04/2024 05:25 AM 89 ml/min/1.73sq.m Final 02/03/2024 05:52 AM 77 ml/min/1.73sq.m Final GFR COMMENT Date/Time Value Ref Range Status 02/09/2024 04:49 AM Average GFR for 70+ years old = 75. Final Comment: Chronic Kidney disease, GFR = <60. Kidney failure, GFR = <15. The GFR estimate is not adjusted for extreme body surface area or acute process, nor has it been validated for women or ethnic groups other than and . CBC Lab Results Component Value Date WBC 6.4 02/09/2024 HGB 11.4 (L) 02/09/2024 HCT 34.2 (L) 02/09/2024 PLATELET 401 (H) 02/09/2024 MCV 96.0 02/09/2024 EDIF Lab Results Component Value Date RBCDISTRIBU 15.1 (H) 02/09/2024 EOSINOPHILS 2.9 02/09/2024 EOSINOPHILS 0.2 02/09/2024 BASOPHILS 0.9 02/09/2024 BASOPHILS 0.1 02/09/2024 LYMPHOCYTABS 1.8 02/09/2024 PLATELET 401 (H) 02/09/2024 MPV 7.4 02/09/2024 Lab Results Component Value Date SODIUM 135 (L) 02/09/2024 POTASSIUM 4.5 02/09/2024 CHLORIDE 104 02/09/2024 CO2 28 02/09/2024 BUN 20 02/09/2024 CREATSERUM 0.90 02/09/2024 GLUCOSE 103 (H) 02/09/2024 Micro C difficile stool 01/23- Urine culture 01/20- 01/20 Nares - 12/16/2023 positive nares test for MSSA 12/15 urine test positive for Klebsiella only resistant to ampicillin and Macrobid XR CHEST 1 VIEW PORTABLE Final Result IMPRESSION: 1. Cardiomegaly. 2. Aortic tortuosity. 3. Minor effusion in the left lung base is suspected. 4. Both lungs are expanded. I am not seeing any obvious displaced fracture although detail is limited. There are accentuated interstitial markings which may well be chronic. ASSESSMENT AND PLAN . Cuate Goodman 83 y.o. with a history of multiple medical problems including DVT/PE, morbid obesity, degenerative joint disease presents with left hip pain undergoing left total hip arthroplasty on 01/10 showing degenerative changes Left total hip arthroplasty, concern for superficial wound infection -history of development of erythema around the incision site on 01/18 or 01/19 without systemic signs of infection -No drainage for wound cx -perioperative nares culture was positive for MSSA, repeat culture 01/20 negative -antibiotic therapy will be given especially in the setting of underlying hardware in the postop period to try to prevent any spread of superficial infection to deeper areas of hardware and this was discussed with her and all questions answered -s/p zyvox 01/20-01/26 -s/p Septra 01/26-01/29 -s/p mupirocin twice daily, 01/22-01/26 -recommend avoiding any rubbing of the undergarments, discussed with nursing -status post 10 day course of antibiotics, discontinued on 01/29. -overall slowly healing without clear evidence of infection -Betadine paint to Wound incision per orthopedics -x-ray shows good position of hardware -orthopedic follow up History of Klebsiella positive urine culture -urinalysis 12/15 with too numerous to count white cells and +3 bacteria -history of Klebsiella positive urine culture in November of 2023 only resistant to ampicillin and Macrobid -patient denies any urinary symptoms and UA bland, culture 01/20 negative Inflammatory markers -CRP 58, 42, 46, 33, 28, 28, 30, 28, 25, 27, 26, 26, 21, 21, 21, 22, 19, 22, 21 -ESR 71, 75 -CRP gradually improving., and then has overall stabilized. Would recommend discontinuing trends as patient may have some level of chronic elevation Anemia -hemoglobin 11.4 -previous anemia workup in November of 2022 was negative with normal iron, B12 and folate studies -Fe 37 Healthcare maintenance -hemoglobin A1c normal at 5.7 on 12/15 History of DVT/PE -anticoagulation per primary team Diarrhea, history -C diff testing and GI pathogen panel negative during admission -suspicious for a viral process -Resolved Nutrition -dietitian to evaluate Medial thigh wound -wound care was consulted on 02/03 for what was described as posterior thigh injuries that were purplish in color and recommended offloading. I am told that these areas have improved. -patient now complains of an inner thigh wound that appears to be due to skin rubbing and a fungal infection -nares are being by nursing on swing bed with pillow cases to decrease irritation -I will reach out to Wound Care to see her tomorrow to give further wound management recommendations to improve healing -in addition I will order fluconazole given that there is a fungal component to this process Disposition -ongoing PT/OT -possible home later this week Janet Moreno MD 02/09/24 1545 Time In/Out OT Therapy Completed Attempted Attempted Reason Patient declined session (pt refused due to pain in B inner thigh. Nursing aware) 02/09/24 1025 Time In/Out Time In 1025 PT Therapy Completed Attempted Attempted Reason Patient declined session (Pt having increased pain d/t wounds at thighs.) 02/09/24 0900 Time In/Out OT Therapy Completed Attempted Attempted Reason Patient declined session (pt was in bed and declined any type of treatment/activity due to fatigue. Agreed that I coudl check back later.) DAILY PROGRESS NOTE Admit Date: 01/19/2024 Date of Evaluation: 47:58 PM [facility] LOS: 20 days IMPRESSION AND PLAN: 83 y.o. 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 1) Severe left hip arthritis s/p total hip arthroplasty PT/OT Continue with eliquis Continue with flexeril Continue with norco PRN Continue with senokot PRN Continue with tramadol PRN Encourage compliance with PT/OT. Persistent weakness noted. 2) Chronic normocytic anemia H and H 9.8 -> 9.5 -> 10.7 -> 10.0 -> 10.1 -> 9.8 -> 10.3 -> 10.6 -> 10.0 -> 10.3 -> 10.0 -> 10.6 -> 10.5 -> 10.7 -> 10.4 -> 10.1 -> 10.5 -> 10.4 and 29.2 -> 27.7 -> 31.8 -> 29.1 -> 29.3 -> 29.4 -> 29.0 -> 30.7 -> 31.3 -> >29.3 -> 29.9 -> 29.3 -> 31.4 -> 31.1 -> 31.8 -> 30.8 -> 29.6 -> 31.7 -> >30.8 Fe 29, TIBC 144, transferrin 20 Continue with iron Serial CBC 3) Gout Currently on allopurinol 4) GERD Currently on protonix. 5) Diarrhea Probably viral C. Diff is negative GI panel is negative. Workup is negative to-date Supportive care. Monitor for hypotension Monitor for hypokalemia Improved. 6) Cellulitis Antibiotic therapy will be given especially in the setting of underlying hardware in the postop period to try to prevent any spread of superficial infection to deeper areas of hardware CRP 58.3 -> 33.6 -> 28.4 -> 30.5 -> 28.9 -> 25.8 -> 26.1 -> 21.4-> 26.3 -> 21.9 -> 22.7 -> >19.6, stable. Finished a course of linezolid Finished a course of bactrobran Finished a course of bactrim DS BID. Continue with nystatin cream Encourage PO intake. Followed by ID 7) HTN SBP 120/90s Continue with lisinopril. 8) Mild oral thrush Nystatin swish and swallow, continue symptomatic treatment of lip dryness 9) Urinary incontinence UA is bland. Supportive care SUBJECTIVE: Patient seen and examined. Chart, medications, labs reviewed. Office Visit on 02/02/2024 Component Date Value Ref Range Status BSA 02/02/2024 2.18 m2 In process LABS Labs-ABGs Labs-CBC @CBCBRIEFROUNDS@ Labs-Chem 7([facility]) Bun/Creat/Cl/CO2/Glucose: 14/0.80/104/30/96 (02/07 450) Na/K+/Phos/Mg/Ca: 133/4.3/--/--/8.9 (02/07 450) Labs-Coags WBC (WHITE BLOOD COUNT) Date Value Ref Range Status 02/08/2024 5.5 3.6 - 11.0 10*3/uL Final 02/07/2024 5.1 3.6 - 11.0 10*3/uL Final 02/06/2024 5.8 3.6 - 11.0 10*3/uL Final HEMOGLOBIN (HGB) Date Value Ref Range Status 02/08/2024 10.4 (L) 12.0 - 16.0 G/DL Final 02/07/2024 10.5 (L) 12.0 - 16.0 G/DL Final 02/06/2024 10.1 (L) 12.0 - 16.0 G/DL Final HEMATOCRIT (HCT) Date Value Ref Range Status 02/08/2024 30.8 (L) 36.0 - 48.0 % Final 02/07/2024 31.7 (L) 36.0 - 48.0 % Final 02/06/2024 29.6 (L) 36.0 - 48.0 % Final PLATELET COUNT Date Value Ref Range Status 02/08/2024 368 130 - 400 10*3/uL Final 02/07/2024 366 130 - 400 10*3/uL Final 02/06/2024 365 130 - 400 10*3/uL Final SODIUM Date Value Ref Range Status 02/08/2024 133 (L) 137 - 145 MMOL/L Final 02/07/2024 133 (L) 137 - 145 MMOL/L Final 02/06/2024 135 (L) 137 - 145 MMOL/L Final CHLORIDE Date Value Ref Range Status 02/08/2024 104 98 - 107 MMOL/L Final Comment: Please note: Triglyceride levels of 600mg/dL or higher may positively bias chloride results by approximately 2.1 mmol 02/07/2024 105 98 - 107 MMOL/L Final Comment: Please note: Triglyceride levels of 600mg/dL or higher may positively bias chloride results by approximately 2.1 mmol 02/06/2024 104 98 - 107 MMOL/L Final Comment: Please note: Triglyceride levels of 600mg/dL or higher may positively bias chloride results by approximately 2.1 mmol BUN Date Value Ref Range Status 02/08/2024 14 7 - 20 MG/DL Final 02/07/2024 11 7 - 20 MG/DL Final 02/06/2024 17 7 - 20 MG/DL Final POTASSIUM Date Value Ref Range Status 02/08/2024 4.3 3.5 - 5.1 MMOL/L Final 02/07/2024 4.3 3.5 - 5.1 MMOL/L Final 02/06/2024 4.4 3.5 - 5.1 MMOL/L Final CREATININE SERUM Date Value Ref Range Status 02/08/2024 0.80 0.7 - 1.2 MG/DL Final 02/07/2024 0.70 0.7 - 1.2 MG/DL Final 02/06/2024 0.80 0.7 - 1.2 MG/DL Final Glucose Date Value Ref Range Status 02/08/2024 96 70 - 100 MG/DL Final Comment: NORMAL <100 mg/dL PREDIABETES 101-126 mg/dL DIABETES 126 mg/dL or higher 02/07/2024 95 70 - 100 MG/DL Final Comment: NORMAL <100 mg/dL PREDIABETES 101-126 mg/dL DIABETES 126 mg/dL or higher 02/06/2024 100 70 - 100 MG/DL Final Comment: NORMAL <100 mg/dL PREDIABETES 101-126 mg/dL DIABETES 126 mg/dL or higher PT Date Value Ref Range Status 01/11/2024 14.2 11.8 - 14.4 SEC Final 12/16/2023 17.9 (H) 11.8 - 14.4 SEC Final PROTEIN, TOTAL Date Value Ref Range Status 01/31/2024 6.1 (L) 6.3 - 8.2 GM/DL Final 01/23/2024 5.6 (L) 6.3 - 8.2 GM/DL Final 12/16/2023 7.2 6.3 - 8.2 GM/DL Final Albumin Date Value Ref Range Status 01/31/2024 3.0 (L) 3.5 - 5.0 G/DL Final 01/23/2024 2.6 (L) 3.5 - 5.0 G/DL Final 01/17/2024 2.6 (L) 3.5 - 5.0 G/dl Final AST Date Value Ref Range Status 01/31/2024 26 14 - 36 IU/L Final 01/23/2024 25 14 - 36 IU/L Final 12/16/2023 25 14 - 36 IU/L Final ALT Date Value Ref Range Status 01/31/2024 13 <35 IU/L Final 01/23/2024 10 <35 IU/L Final 12/16/2023 16 <35 IU/L Final BILIRUBIN, TOTAL Date Value Ref Range Status 01/31/2024 0.2 0.2 - 1.3 MG/DL Final CALCIUM Date Value Ref Range Status 02/08/2024 8.9 8.4 - 10.2 MG/DL Final 02/07/2024 8.8 8.4 - 10.2 MG/DL Final 02/06/2024 8.6 8.4 - 10.2 MG/DL Final PHOSPHORUS Date Value Ref Range Status 01/17/2024 2.6 2.5 - 4.5 MG/DL Final Lab Results Component Value Date CREATSERUM 0.80 02/08/2024 BUN 14 02/08/2024 SODIUM 133 (L) 02/08/2024 POTASSIUM 4.3 02/08/2024 CHLORIDE 104 02/08/2024 CO2 30 02/08/2024 ROS: Constitution: No fever, no chill HEENT: No headache, no sinus issues CV: No chest pain, no palpitation Lung: No cough, No SOB Abd: No diarrhea, no constipation Neuro: No seizure, no loss of consciousness Heme: No bleeding, no bruise PHYSICAL EXAM: Wt Readings from Last 3 Encounters: 02/08/24 106.2 kg (234 lb 1.6 oz) 02/02/24 109.3 kg (241 lb) 12/08/23 103 kg (227 lb) Temp Readings from Last 3 Encounters: 02/08/24 98.9 F (37.2 C) (Oral) 02/02/24 98.8 F (37.1 C) (Temporal) 01/19/24 98.2 F (36.8 C) (Temporal) BP Readings from Last 3 Encounters: 02/08/24 117/66 01/19/24 137/62 12/16/23 135/89 Pulse Readings from Last 3 Encounters: 02/08/24 98 01/19/24 89 12/16/23 73 Gen: NAD, lying in bed, conversant HEENT: Atraumatic, PERRLA, moist membrane CV: RRR, nl S1 and S2, no m/g/r Lung: CTAB, no wheezing, no crackle Abd: +BS, nontender, no distended Ext: No rash, no clubbing, no cyanosis. No edema. Neuro: CNII-XII grossly intact, 5/5 strength, normal tone Skin: Warm and dry Infectious Disease progress note SUBJECTIVE History of Present Illness: Cuate Goodman 83 y.o. female with a history of left degenerative hip disease with ongoing left hip pain with reported decreased quality of life due to this condition. The patient was seen by Orthopedics and Dr. Heredia performed surgery 01/10 with a left total hip arthroplasty. Total hip arthroplastic surgery on 01/10 did not have noted complications or infectious issues per chart review. The patient was subsequently discharged after an admission from 01/10-01/18 on the med surg unit without stated ID issue. There was no antibiotics at time of discharge. Pathology from knee replacement surgery showed consistent with degenerative joint disease without mention of infection. Has history of previous right total hip arthroplasty and left total knee arthroplasty noted. Past medical history also includes obesity, degenerative joint disease and history of DVT and PE. Additional history includes right bundle-branch block, diastolic dysfunction, B12 deficiency, impaired fasting glucose with normal preoperative A1c, elevated uric acid level, GERD, urinary incontinence, history of abdominal aortic aneurysm. Patient does have a history of penicillin allergy resulting in hives but no other allergies to antibiotics noted. The patient denies any tobacco, alcohol or drug use. No prior use reported. Patient was subsequently admitted swing bed for rehabilitation on 01/18. Patient underwent pain control, PT/OT and ongoing medical management. Patient was noted to have erythema that began around her left hip site approximately on 01/18 or 01/19 per nursing report. There has been no described drainage from her hip. Patient denies any specific areas pain in her hip joint. There is no reported fevers or chills or night sweats at time of initial consultation. The patient denies any new respiratory, abdominal or urinary symptoms. Specifically she denies any UTI symptoms Infectious disease consult 01/21/2024, patient began on Zyvox for superficial postop infection, Interval events: 24 hour events reviewed. No fevers. No hip pain reported. Betadine continues to be 5. Patient denies any new complaints in his hoping go home by Wednesday. No nausea vomiting or diarrhea. No urinary symptoms. Patient states she walked 200 ft twice yesterday. Patient states her previous nausea has resolved after medication time was changed and she was given an antacid. Patient denies any other complaints. ROS A complete review of systems are negative except those consistent with HPI OBJECTIVE Past Medical History: Diagnosis Date Aortic aneurysm Arthritis Deep vein thrombosis (DVT) GERD (gastroesophageal reflux disease) H/O unilateral nephrectomy per pt Past Medical History: Diagnosis Date Aortic aneurysm Arthritis Deep vein thrombosis (DVT) GERD (gastroesophageal reflux disease) H/O unilateral nephrectomy per pt Past Surgical History: Procedure Laterality Date ARTHROPLASTY HIP TOTAL Left 01/11/2024 Laterality: Left; Surgeon: Erik Heredia MD; Location: [facility] OR NEPHRECTOMY Right 1978 CHOLECYSTECTOMY HIP REPLACEMENT Right HYSTERECTOMY KNEE REPLACEMENT Bilateral left x 2 LITHOTRIPSY multiple Patient Active Problem List Diagnosis S/P total hip arthroplasty Gout Aneurysm of ascending aorta without rupture Aneurysmal dilatation Closed fracture of hand Fracture of metacarpal bone Gastro-esophageal reflux disease without esophagitis Hypomagnesemia Lumbar spondylosis Mixed stress and urge urinary incontinence Morbid (severe) obesity due to excess calories Other disorders of plasma-protein metabolism, not elsewhere classified Pulmonary embolism Solitary kidney, acquired Thoracic aortic ectasia Unilateral primary osteoarthritis, left hip Unsteadiness on feet S/P total left hip arthroplasty H/O unilateral nephrectomy Social History Socioeconomic History Marital status: Single Spouse name: Not on file Number of children: Not on file Years of education: Not on file Highest education level: Not on file Occupational History Not on file Tobacco Use Smoking status: Never Smokeless tobacco: Never Substance and Sexual Activity Alcohol use: Never Drug use: Never Sexual activity: Not on file Other Topics Concern Not on file Social History Narrative Not on file Social Determinants of Health Financial Resource Strain: Low Risk (01/21/2024) Overall Financial Resource Strain (CARDIA) Difficulty of Paying Living Expenses: Not very hard Food Insecurity: No Food Insecurity (01/21/2024) Hunger Vital Sign Worried About Running Out of Food in the Last Year: Never true Ran Out of Food in the Last Year: Never true Transportation Needs: No Transportation Needs (01/21/2024) PRAPARE - Transportation Lack of Transportation (Medical): No Lack of Transportation (Non-Medical): No Physical Activity: Not on file Stress: Not on file Social Connections: Not on file Intimate Partner Violence: Not At Risk (01/21/2024) Humiliation, Afraid, Rape, and Kick questionnaire Fear of Current or Ex-Partner: No Emotionally Abused: No Physically Abused: No Sexually Abused: No Housing Stability: Low Risk (01/21/2024) Housing Stability Vital Sign Unable to Pay for Housing in the Last Year: No Number of Places Lived in the Last Year: 1 Unstable Housing in the Last Year: No Current Facility-Administered Medications: Acetaminophen (TYLENOL) tablet 650 mg, 650 mg, Oral, Q4H PRN, Mohan Gomez MD, 650 mg at 02/07/24 0908 Allopurinol (ZYLOPRIM) tablet 100 mg, 100 mg, Oral, Daily, Mohan Gomez MD, 100 mg at 02/08/24 0844 apixaban (ELIQUIS) tablet 5 mg, 5 mg, Oral, Q12H, Mohan Gomez MD, 5 mg at 02/08/24 0842 bisacodyl (DULCOLAX) suppository 10 mg, 10 mg, Rectal, Daily PRN, Mohan Gomez MD Cyclobenzaprine (FLEXERIL) tablet 5 mg, 5 mg, Oral, Q12H, Mohan Gomez MD, 5 mg at 02/08/24 0843 Docusate (COLACE) capsule 100 mg, 100 mg, Oral, Q12H, Mohan Gomez MD, 100 mg at 02/08/24 0841 ferrous sulfate tablet 325 mg, 325 mg, Oral, Daily, Mohan Gomez MD, 325 mg at 02/08/24 0844 hydroCODone-acetaminophen (NORCO) 5-325 MG per tablet 1 tablet, 1 tablet, Oral, Q4H PRN, Mohan Gomez MD, 1 tablet at 02/08/24 1601 hydroCODone-acetaminophen (NORCO) 5-325 MG per tablet 2 tablet, 2 tablet, Oral, Q4H PRN, Mohan Gomez MD, 2 tablet at 02/07/24 2251 lactulose (CHRONULAC) oral solution 20 g, 20 g, Oral, TID PRN, Mohan Gomez MD Lisinopril (PRINIVIL) tablet 5 mg, 5 mg, Oral, Daily, Mohan Gomez MD, 5 mg at 02/08/24 0842 multivitamin tablet 1 tablet, 1 tablet, Oral, Daily, Mohan Gomez MD, 1 tablet at 02/08/24 0841 nystatin (MYCOSTATIN) cream 1 Application, 1 Application, Topical, Q12H, Mohan Gomez MD, 1 Application at 02/08/24 1040 ondansetron (ZOFRAN-ODT) disintegrating tablet 4 mg, 4 mg, Oral, Q4H PRN, Mohan Gomez MD, 4 mg at 02/05/24 0923 Pantoprazole (PROTONIX) tablet DR 40 mg, 40 mg, Oral, Before BKF, Mohan Gomez MD, 40 mg at 02/08/24 0539 Polyethylene glycol (MIRALAX) packet 17 g, 17 g, Oral, Q12H, Mohan Gomez MD, 17 g at 02/07/242050 Polyethylene glycol (MIRALAX) packet 17 g, 17 g, Oral, TID PRN, Mohan Gomez MD Povidone-Iodine (PROFEND) 10 % swab 1 Application, 1 Application, Topical, QHS, Mohan Gomez MD, 1 Application at 02/07/242053 senna-docusate (SENOKOT-S) 8.6-50 MG per tablet 2 tablet, 2 tablet, Oral, Q12H, Mohan Gomez MD, 2 tablet at 02/06/242156 Tolterodine (DETROL-LA) capsule XL 4 mg, 4 mg, Oral, Daily, Mohan Gomez MD, 4 mg at 02/08/24 0841 Zolpidem (AMBIEN) tablet 5 mg, 5 mg, Oral, QHS PRN, Mohan Gomez MD, 5 mg at 02/07/24 225 Allergies Allergen Reactions Morphine Nausea and Vomiting Other Reaction(s): GI intolerance Oxycodone Nausea and Vomiting Other Reaction(s): GI intolerance Penicillins Hives Vitals: 02/07/24 1941 02/07/24 1953 02/08/24 0600 02/08/24 0712 BP: 121/71 108/65 Pulse: 94 92 Resp: 18 18 Temp: 98.4 degrees F (36.9 degrees C) 98.4 degrees F (36.9 degrees C) TempSrc: Oral Oral SpO2: 93% 94% 94% Weight: 106.2 kg (234 lb 1.6 oz) Height: Intake/Output Summary (Last 24 hours) at 02/08/2024 1623 Last data filed at 02/07/2024 2200 Gross per 24 hour Intake 800 ml Output -- Net 800 ml Physical Exam: CONSTITUTIONAL: Alert and Oriented, in no distress, afebrile HEENT: Normocephalic and atraumatic, Sclera anicteric, PERRL, mild thrush improving, dry lips improving and no visualized HSV lesions CARDIAC: Normal rate, regular rhythm, normal heart sounds and intact distal pulses, no murmurs/rubs/clicks/gallops RESP: Effort normal and breath sounds are normal, but distant. No respiratory distress. No Wheezing/Rales/Cough, RA GI: Soft. Bowel sounds are normal. Nontender. Nondistended. Morbid obesity : No Suprapubic tenderness EXTREMITES: No cyanosis, clubbing; positive for history of left total knee arthroplasty. History of right total hip arthroplasty. Left total hip arthroplasty with incision with minimal erythema, overall improved, no pain, no drainage. Betadine is in place. Left greater than right lower extremity edema DERM: Skin is warm and dry. No rash noted MUSCULARSKELETAL: No septic arthritis noted NEUROLOGIC: Alert and communicative LAB RESULTS: WBC (WHITE BLOOD COUNT) Date/Time Value Ref Range Status 02/08/2024 04:50 AM 5.5 3.6 - 11.0 10*3/uL Final 02/07/2024 04:36 AM 5.1 3.6 - 11.0 10*3/uL Final 02/06/2024 04:53 AM 5.8 3.6 - 11.0 10*3/uL Final 02/05/2024 05:25 AM 5.0 3.6 - 11.0 10*3/uL Final 02/04/2024 05:25 AM 6.0 3.6 - 11.0 10*3/uL Final 02/03/2024 05:52 AM 6.3 3.6 - 11.0 10*3/uL Final 02/02/2024 05:14 AM 6.0 3.6 - 11.0 10*3/uL Final HEMOGLOBIN (HGB) Date/Time Value Ref Range Status 02/08/2024 04:50 AM 10.4 (L) 12.0 - 16.0 G/DL Final 02/07/2024 04:36 AM 10.5 (L) 12.0 - 16.0 G/DL Final 02/06/2024 04:53 AM 10.1 (L) 12.0 - 16.0 G/DL Final 02/05/2024 05:25 AM 10.4 (L) 12.0 - 16.0 G/DL Final 02/04/2024 05:25 AM 10.2 (L) 12.0 - 16.0 G/DL Final 02/03/2024 05:52 AM 10.7 (L) 12.0 - 16.0 G/DL Final 02/02/2024 05:14 AM 10.5 (L) 12.0 - 16.0 G/DL Final HEMATOCRIT (HCT) Date/Time Value Ref Range Status 02/08/2024 04:50 AM 30.8 (L) 36.0 - 48.0 % Final 02/07/2024 04:36 AM 31.7 (L) 36.0 - 48.0 % Final 02/06/2024 04:53 AM 29.6 (L) 36.0 - 48.0 % Final 02/05/2024 05:25 AM 30.8 (L) 36.0 - 48.0 % Final 02/04/2024 05:25 AM 30.0 (L) 36.0 - 48.0 % Final 02/03/2024 05:52 AM 31.8 (L) 36.0 - 48.0 % Final 02/02/2024 05:14 AM 31.1 (L) 36.0 - 48.0 % Final PLATELET COUNT Date/Time Value Ref Range Status 02/08/2024 04:50 AM 368 130 - 400 10*3/uL Final 02/07/2024 04:36 AM 366 130 - 400 10*3/uL Final 02/06/2024 04:53 AM 365 130 - 400 10*3/uL Final 02/05/2024 05:25 AM 378 130 - 400 10*3/uL Final 02/04/2024 05:25 AM 415 (H) 130 - 400 10*3/uL Final 02/03/2024 05:52 AM 472 (H) 130 - 400 10*3/uL Final 02/02/2024 05:14 AM 429 (H) 130 - 400 10*3/uL Final POTASSIUM Date/Time Value Ref Range Status 02/08/2024 04:50 AM 4.3 3.5 - 5.1 MMOL/L Final 02/07/2024 04:36 AM 4.3 3.5 - 5.1 MMOL/L Final 02/06/2024 04:53 AM 4.4 3.5 - 5.1 MMOL/L Final 02/05/2024 05:25 AM 4.3 3.5 - 5.1 MMOL/L Final 02/04/2024 05:25 AM 4.4 3.5 - 5.1 MMOL/L Final 02/03/2024 05:52 AM 4.4 3.5 - 5.1 MMOL/L Final 02/02/2024 05:14 AM 4.2 3.5 - 5.1 MMOL/L Final CHLORIDE Date/Time Value Ref Range Status 02/08/2024 04:50 AM 104 98 - 107 MMOL/L Final Comment: Please note: Triglyceride levels of 600mg/dL or higher may positively bias chloride results by approximately 2.1 mmol 02/07/2024 04:36 AM 105 98 - 107 MMOL/L Final Comment: Please note: Triglyceride levels of 600mg/dL or higher may positively bias chloride results by approximately 2.1 mmol 02/06/2024 04:53 AM 104 98 - 107 MMOL/L Final Comment: Please note: Triglyceride levels of 600mg/dL or higher may positively bias chloride results by approximately 2.1 mmol 02/05/2024 05:25 AM 104 98 - 107 MMOL/L Final Comment: Please note: Triglyceride levels of 600mg/dL or higher may positively bias chloride results by approximately 2.1 mmol 02/04/2024 05:25 AM 104 98 - 107 MMOL/L Final Comment: Please note: Triglyceride levels of 600mg/dL or higher may positively bias chloride results by approximately 2.1 mmol 02/03/2024 05:52 AM 104 98 - 107 MMOL/L Final Comment: Please note: Triglyceride levels of 600mg/dL or higher may positively bias chloride results by approximately 2.1 mmol 02/02/2024 05:14 AM 103 98 - 107 MMOL/L Final Comment: Please note: Triglyceride levels of 600mg/dL or higher may positively bias chloride results by approximately 2.1 mmol CARBON DIOXIDE (CO2) Date/Time Value Ref Range Status 02/08/2024 04:50 AM 30 22 - 30 MMOL/L Final 02/07/2024 04:36 AM 27 22 - 30 MMOL/L Final 02/06/2024 04:53 AM 29 22 - 30 MMOL/L Final 02/05/2024 05:25 AM 30 22 - 30 MMOL/L Final 02/04/2024 05:25 AM 31 (H) 22 - 30 MMOL/L Final 02/03/2024 05:52 AM 29 22 - 30 MMOL/L Final 02/02/2024 05:14 AM 30 22 - 30 MMOL/L Final Glucose Date/Time Value Ref Range Status 02/08/2024 04:50 AM 96 70 - 100 MG/DL Final Comment: NORMAL <100 mg/dL PREDIABETES 101-126 mg/dL DIABETES 126 mg/dL or higher 02/07/2024 04:36 AM 95 70 - 100 MG/DL Final Comment: NORMAL <100 mg/dL PREDIABETES 101-126 mg/dL DIABETES 126 mg/dL or higher 02/06/2024 04:53 AM 100 70 - 100 MG/DL Final Comment: NORMAL <100 mg/dL PREDIABETES 101-126 mg/dL DIABETES 126 mg/dL or higher 02/05/2024 05:25 AM 101 (H) 70 - 100 MG/DL Final Comment: NORMAL <100 mg/dL PREDIABETES 101-126 mg/dL DIABETES 126 mg/dL or higher 02/04/2024 05:25 AM 96 70 - 100 MG/DL Final Comment: NORMAL <100 mg/dL PREDIABETES 101-126 mg/dL DIABETES 126 mg/dL or higher 02/03/2024 05:52 AM 100 70 - 100 MG/DL Final Comment: NORMAL <100 mg/dL PREDIABETES 101-126 mg/dL DIABETES 126 mg/dL or higher 02/02/2024 05:14 AM 103 (H) 70 - 100 MG/DL Final Comment: NORMAL <100 mg/dL PREDIABETES 101-126 mg/dL DIABETES 126 mg/dL or higher BUN Date/Time Value Ref Range Status 02/08/2024 04:50 AM 14 7 - 20 MG/DL Final 02/07/2024 04:36 AM 11 7 - 20 MG/DL Final 02/06/2024 04:53 AM 17 7 - 20 MG/DL Final 02/05/2024 05:25 AM 14 7 - 20 MG/DL Final 02/04/2024 05:25 AM 18 7 - 20 MG/DL Final 02/03/2024 05:52 AM 17 7 - 20 MG/DL Final 02/02/2024 05:14 AM 18 7 - 20 MG/DL Final CREATININE SERUM Date/Time Value Ref Range Status 02/08/2024 04:50 AM 0.80 0.7 - 1.2 MG/DL Final 02/07/2024 04:36 AM 0.70 0.7 - 1.2 MG/DL Final 02/06/2024 04:53 AM 0.80 0.7 - 1.2 MG/DL Final 02/05/2024 05:25 AM 0.80 0.7 - 1.2 MG/DL Final 02/04/2024 05:25 AM 0.80 0.7 - 1.2 MG/DL Final 02/03/2024 05:52 AM 0.90 0.7 - 1.2 MG/DL Final 02/02/2024 05:14 AM 0.90 0.7 - 1.2 MG/DL Final Albumin Date/Time Value Ref Range Status 01/31/2024 06:12 AM 3.0 (L) 3.5 - 5.0 G/DL Final 01/23/2024 04:37 AM 2.6 (L) 3.5 - 5.0 G/DL Final 01/17/2024 04:31 AM 2.6 (L) 3.5 - 5.0 G/dl Final 12/16/2023 12:35 PM 4.0 3.5 - 5.0 G/dl Final CALCIUM Date/Time Value Ref Range Status 02/08/2024 04:50 AM 8.9 8.4 - 10.2 MG/DL Final 02/07/2024 04:36 AM 8.8 8.4 - 10.2 MG/DL Final 02/06/2024 04:53 AM 8.6 8.4 - 10.2 MG/DL Final 02/05/2024 05:25 AM 8.8 8.4 - 10.2 MG/DL Final 02/04/2024 05:25 AM 8.8 8.4 - 10.2 MG/DL Final 02/03/2024 05:52 AM 9.1 8.4 - 10.2 MG/DL Final 02/02/2024 05:14 AM 8.9 8.4 - 10.2 MG/DL Final ALKALINE PHOSPHATASE Date/Time Value Ref Range Status 01/31/2024 06:12 AM 107 38 - 126 IU/L Final 01/23/2024 04:37 AM 99 38 - 126 IU/L Final 12/16/2023 12:35 PM 89 38 - 126 IU/L Final AST Date/Time Value Ref Range Status 01/31/2024 06:12 AM 26 14 - 36 IU/L Final 01/23/2024 04:37 AM 25 14 - 36 IU/L Final 12/16/2023 12:35 PM 25 14 - 36 IU/L Final BILIRUBIN, TOTAL Date/Time Value Ref Range Status 01/31/2024 06:12 AM 0.2 0.2 - 1.3 MG/DL Final 01/23/2024 04:37 AM 0.3 0.2 - 1.3 MG/DL Final 12/16/2023 12:35 PM 0.3 0.2 - 1.3 MG/DL Final ANION GAP Date/Time Value Ref Range Status 02/08/2024 04:50 AM NEG 1 8 - 16 MMOL/L Final 02/07/2024 04:36 AM 1 (L) 8 - 16 MMOL/L Final 02/06/2024 04:53 AM 2 (L) 8 - 16 MMOL/L Final 02/05/2024 05:25 AM 1 (L) 8 - 16 MMOL/L Final 02/04/2024 05:25 AM 1 (L) 8 - 16 MMOL/L Final 02/03/2024 05:52 AM 2 (L) 8 - 16 MMOL/L Final 02/02/2024 05:14 AM 1 (L) 8 - 16 MMOL/L Final ALT Date/Time Value Ref Range Status 01/31/2024 06:12 AM 13 <35 IU/L Final 01/23/2024 04:37 AM 10 <35 IU/L Final 12/16/2023 12:35 PM 16 <35 IU/L Final ESTIMATED GFR, NON AMER Date/Time Value Ref Range Status 02/08/2024 04:50 AM 73 ml/min/1.73sq.m Final 02/07/2024 04:36 AM 85 ml/min/1.73sq.m Final 02/06/2024 04:53 AM 73 ml/min/1.73sq.m Final 02/05/2024 05:25 AM 73 ml/min/1.73sq.m Final 02/04/2024 05:25 AM 73 ml/min/1.73sq.m Final 02/03/2024 05:52 AM 64 ml/min/1.73sq.m Final 02/02/2024 05:14 AM 64 ml/min/1.73sq.m Final ESTIMATED GFR, Date/Time Value Ref Range Status 02/08/2024 04:50 AM 89 ml/min/1.73sq.m Final 02/07/2024 04:36 AM 103 ml/min/1.73sq.m Final 02/06/2024 04:53 AM 89 ml/min/1.73sq.m Final 02/05/2024 05:25 AM 89 ml/min/1.73sq.m Final 02/04/2024 05:25 AM 89 ml/min/1.73sq.m Final 02/03/2024 05:52 AM 77 ml/min/1.73sq.m Final 02/02/2024 05:14 AM 77 ml/min/1.73sq.m Final GFR COMMENT Date/Time Value Ref Range Status 02/08/2024 04:50 AM Average GFR for 70+ years old = 75. Final Comment: Chronic Kidney disease, GFR = <60. Kidney failure, GFR = <15. The GFR estimate is not adjusted for extreme body surface area or acute process, nor has it been validated for women or ethnic groups other than and . CBC Lab Results Component Value Date WBC 5.5 02/08/2024 HGB 10.4 (L) 02/08/2024 HCT 30.8 (L) 02/08/2024 PLATELET 368 02/08/2024 MCV 95.1 02/08/2024 EDIF Lab Results Component Value Date RBCDISTRIBU 15.3 (H) 02/08/2024 EOSINOPHILS 3.5 02/08/2024 EOSINOPHILS 0.2 02/08/2024 BASOPHILS 1.0 02/08/2024 BASOPHILS 0.1 02/08/2024 LYMPHOCYTABS 1.5 02/08/2024 PLATELET 368 02/08/2024 MPV 7.4 02/08/2024 Lab Results Component Value Date SODIUM 133 (L) 02/08/2024 POTASSIUM 4.3 02/08/2024 CHLORIDE 104 02/08/2024 CO2 30 02/08/2024 BUN 14 02/08/2024 CREATSERUM 0.80 02/08/2024 GLUCOSE 96 02/08/2024 Micro C difficile stool 01/23- Urine culture 01/20- 01/20 Nares - 12/16/2023 positive nares test for MSSA 12/15 urine test positive for Klebsiella only resistant to ampicillin and Macrobid XR CHEST 1 VIEW PORTABLE Final Result IMPRESSION: 1. Cardiomegaly. 2. Aortic tortuosity. 3. Minor effusion in the left lung base is suspected. 4. Both lungs are expanded. I am not seeing any obvious displaced fracture although detail is limited. There are accentuated interstitial markings which may well be chronic. ASSESSMENT AND PLAN . Cuate Goodman 83 y.o. with a history of multiple medical problems including DVT/PE, morbid obesity, degenerative joint disease presents with left hip pain undergoing left total hip arthroplasty on 01/10 showing degenerative changes Left total hip arthroplasty, concern for superficial wound infection -history of development of erythema around the incision site on 01/18 or 01/19 without systemic signs of infection -No drainage for wound cx -perioperative nares culture was positive for MSSA, repeat culture 01/20 negative -antibiotic therapy will be given especially in the setting of underlying hardware in the postop period to try to prevent any spread of superficial infection to deeper areas of hardware and this was discussed with her and all questions answered -s/p zyvox 01/20-01/26 -s/p Septra 01/26-01/29 -s/p mupirocin twice daily, 01/22-01/26 -recommend avoiding any rubbing of the undergarments, discussed with nursing -status post 10 day course of antibiotics, discontinued on 01/29. -overall slowly healing without clear evidence of infection -Betadine paint to Wound incision per orthopedics -x-ray shows good position of hardware -orthopedic follow up History of Klebsiella positive urine culture -urinalysis 12/15 with too numerous to count white cells and +3 bacteria -history of Klebsiella positive urine culture in November of 2023 only resistant to ampicillin and Macrobid -patient denies any urinary symptoms and UA bland, culture 01/20 negative Inflammatory markers -CRP 58, 42, 46, 33, 28, 28, 30, 28, 25, 27, 26, 26, 21, 21, 21, 22, 19, 22 -ESR 71, 75 -CRP gradually improving., and then has overall stabilized. Would recommend discontinuing trends as patient may have some level of chronic elevation Anemia -hemoglobin 9.5, 10.7, 10, 10.1, 10.1, 9.8, 10.3, 10.6, 10, 10.3, 10, 10.6, 10.5, 10.7, 10.2, 10.4, 10.1, 10.5 10.4 -previous anemia workup in November of 2022 was negative with normal iron, B12 and folate studies -Fe 37 -hemoglobin stable Healthcare maintenance -hemoglobin A1c normal at 5.7 on 12/15 History of DVT/PE -anticoagulation per primary team Diarrhea, history -C diff testing and GI pathogen panel negative during admission -probiotic prescribed. -suspicious for a viral process -Resolved Nutrition -dietitian to evaluate Posterior thigh wounds -wound care consulted -Offloading Disposition -ongoing PT/OT -possible home later this week Infectious disease will sign off. The patient has been doing well with no evidence of further concern with left hip in terms of infection. If there is pain, warmth, increasing redness, fever, please recall ID. Thank you for involving me in her care Janet Moreno MD 02/08/24 1325 Physical Therapy Minutes Start Time 1325 Stop Time 1351 Time Calculation 26 PT Individual Minutes 26 minutes General Pain Documentation (Adult, OB, Peds) Presence of Pain denies pain/discomfort Presence of Pain Score (Auto-calculated) 0 Sit to Stand Equipment Used Sit to Stand Equipment used arm rest;two wheeled walker Sit to Stand Assistance Needed Adaptive equipment;Supervision Physical Assistance Level No physical assistance Comment SBA FWW CARE Score - Sit to Stand 4 Gait Assessment Distance Walked 200 Gait Equipment two-wheeled walker Gait Comments Pt ambulated 200 ft using FWW with TTWB on LLE. Slow roro and chair follow for larger distance. PT Barriers and Justification Impairments in Body Structure/Function strength;pain;aerobic capacity/endurance Pt up in recliner upon entry agreeable to PT treatment. Pt made progress with ambulation this date ambulating 200ft with out sitting down for a rest break. Maureen, Swing Bed, reports NOMNC being issued as patient states she is wanting to discharge on Wednesday. PT/OT recommending Home Health and transport chair. Maureen states patient does not want transport chair at discharge. CAMMIE spoke with patient at bedside. Patient states she is going home Wednesday and granddaughter will be staying with her at night through around 14:00, but states she has people constantly in and out of her home and plenty of people to help her. She states her family is very supportive, they have been bringing her food in and states I'll have them continue that when I go home. She states she gets her groceries delivered at home. Patient reports having a chair lift to go to the second floor of her home, also has a walk in shower and grab bars. SW discussed Home Health with patient. She denied wanting Home Health set up and states I'm up walking all the time at home. She states she has exercises at home that she does on her own and she has had hip and knee surgeries before and knows what exercises to do. She states she has had Home Health in the past and does not feel like it would be beneficial for her at this time. She confirmed she is current with her PCP, SW encouraged her to follow up with PCP for services if she gets home and decides she would like further therapy, she verbalized understanding. Patient reports no questions or concerns at this time. Maureen updated. 02/08/24 1008 Occupational Therapy Minutes Start Time 0955 Stop Time 1008 Time Calculation 13 OT Individual Minutes 13 minutes General Pain Documentation (Adult, OB, Peds) Presence of Pain reports pain/discomfort Pain Location leg, left Select Pain Scale DVPRS (Defense and Veterans Pain Rating Scale) (Adult-Cognitively Intact) DVPRS (Defense and Veterans Pain Rating Scale) DVPRS: Rest 5- moderate pain Toileting Hygiene Assistance Needed Independent CARE Score - Toileting Hygiene 6 Toilet Transfer Assistance Needed Incidental touching CARE Score - Toilet Transfer 4 Pt seated on toilet upon arrival. Pt seen for therapeutic activities. Pt sit to stand from toilet with CGA. Pt ambulated back to bedside chair using FWW with CGA. Pt left with call light within reach and all needs met. Continue OT per POC ROBER Alvarado 02/08/24 0930 Physical Therapy Minutes Start Time 929 Stop Time 945 Time Calculation 16 PT Individual Minutes 16 minutes General Pain Documentation (Adult, OB, Peds) Presence of Pain reports pain/discomfort Pain Location leg, left Select Pain Scale DVPRS (Defense and Veterans Pain Rating Scale) (Adult-Cognitively Intact) DVPRS (Defense and Veterans Pain Rating Scale) DVPRS: Rest 5- moderate pain DVPRS: Activity 5- moderate pain Sit to Stand Equipment Used Sit to Stand Equipment used arm rest;two wheeled walker Sit to Stand Assistance Needed Adaptive equipment;Supervision Physical Assistance Level No physical assistance Comment FWW SBA CARE Score - Sit to Stand 4 Gait Assessment Distance Walked 80 Gait Equipment two-wheeled walker Gait Comments Pt ambulated 80ft using FWW with SBA and chair follow per pt request. Pt ambulates with TTWB on LLE and VC for increased heel strike on RLE. Walk 10 Feet Assistance Needed Adaptive equipment;Supervision Physical Assistance Level No physical assistance CARE Score - Walk 10 Feet 4 Pt declined further treatment after ambulating d/t fatigue and LLE pain. DAILY PROGRESS NOTE Admit Date: 01/19/2024 Date of Evaluation: 1:21 PM [facility] LOS: 19 days IMPRESSION AND PLAN: 83 y.o. 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 1) Severe left hip arthritis s/p total hip arthroplasty PT/OT Continue with eliquis Continue with flexeril Continue with norco PRN Continue with senokot PRN Continue with tramadol PRN Encourage compliance with PT/OT. Persistent weakness noted. 2) Chronic normocytic anemia H and H 9.8 -> 9.5 -> 10.7 -> 10.0 -> 10.1 -> 9.8 -> 10.3 -> 10.6 -> 10.0 -> 10.3 -> 10.0 -> 10.6 -> 10.5 -> 10.7 -> 10.4 -> 10.1 -> 10.5 and 29.2 -> 27.7 -> 31.8 -> 29.1 -> 29.3 -> 29.4 -> 29.0 -> 30.7 -> 31.3 -> >29.3 -> 29.9 -> 29.3 -> 31.4 -> 31.1 -> 31.8 -> 30.8 -> 29.6 -> 31.7 Fe 29, TIBC 144, transferrin 20 Continue with iron Serial CBC 3) Gout Currently on allopurinol 4) GERD Currently on protonix. 5) Diarrhea Probably viral C. Diff is negative GI panel is negative. Workup is negative to-date Supportive care. Monitor for hypotension Monitor for hypokalemia Improved. 6) Cellulitis Antibiotic therapy will be given especially in the setting of underlying hardware in the postop period to try to prevent any spread of superficial infection to deeper areas of hardware CRP 58.3 -> 33.6 -> 28.4 -> 30.5 -> 28.9 -> 25.8 -> 26.1 -> 21.4-> 26.3 -> 21.9 -> 22.7 -> >19.6, stable. Finished a course of linezolid Finished a course of bactrobran Finished a course of bactrim DS BID. Continue with nystatin cream Encourage PO intake. Followed by ID 7) HTN SBP 120/90s Continue with lisinopril. 8) Mild oral thrush Nystatin swish and swallow, continue symptomatic treatment of lip dryness 9) Urinary incontinence UA is bland. Supportive care SUBJECTIVE: Patient seen and examined. Chart, medications, labs reviewed. Office Visit on 02/02/2024 Component Date Value Ref Range Status BSA 02/02/2024 2.18 m2 In process LABS Labs-ABGs Labs-CBC @CBCBRIEFROUNDS@ Labs-Chem 7(PMC) Bun/Creat/Cl/CO2/Glucose: 11/0.70/105/27/95 (02/07 436) Na/K+/Phos/Mg/Ca: 133/4.3/--/--/8.8 (02/07 436) Labs-Coags WBC (WHITE BLOOD COUNT) Date Value Ref Range Status 02/07/2024 5.1 3.6 - 11.0 10*3/uL Final 02/06/2024 5.8 3.6 - 11.0 10*3/uL Final 02/05/2024 5.0 3.6 - 11.0 10*3/uL Final HEMOGLOBIN (HGB) Date Value Ref Range Status 02/07/2024 10.5 (L) 12.0 - 16.0 G/DL Final 02/06/2024 10.1 (L) 12.0 - 16.0 G/DL Final 02/05/2024 10.4 (L) 12.0 - 16.0 G/DL Final HEMATOCRIT (HCT) Date Value Ref Range Status 02/07/2024 31.7 (L) 36.0 - 48.0 % Final 02/06/2024 29.6 (L) 36.0 - 48.0 % Final 02/05/2024 30.8 (L) 36.0 - 48.0 % Final PLATELET COUNT Date Value Ref Range Status 02/07/2024 366 130 - 400 10*3/uL Final 02/06/2024 365 130 - 400 10*3/uL Final 02/05/2024 378 130 - 400 10*3/uL Final SODIUM Date Value Ref Range Status 02/07/2024 133 (L) 137 - 145 MMOL/L Final 02/06/2024 135 (L) 137 - 145 MMOL/L Final 02/05/2024 135 (L) 137 - 145 MMOL/L Final CHLORIDE Date Value Ref Range Status 02/07/2024 105 98 - 107 MMOL/L Final Comment: Please note: Triglyceride levels of 600mg/dL or higher may positively bias chloride results by approximately 2.1 mmol 02/06/2024 104 98 - 107 MMOL/L Final Comment: Please note: Triglyceride levels of 600mg/dL or higher may positively bias chloride results by approximately 2.1 mmol 02/05/2024 104 98 - 107 MMOL/L Final Comment: Please note: Triglyceride levels of 600mg/dL or higher may positively bias chloride results by approximately 2.1 mmol BUN Date Value Ref Range Status 02/07/2024 11 7 - 20 MG/DL Final 02/06/2024 17 7 - 20 MG/DL Final 02/05/2024 14 7 - 20 MG/DL Final POTASSIUM Date Value Ref Range Status 02/07/2024 4.3 3.5 - 5.1 MMOL/L Final 02/06/2024 4.4 3.5 - 5.1 MMOL/L Final 02/05/2024 4.3 3.5 - 5.1 MMOL/L Final CREATININE SERUM Date Value Ref Range Status 02/07/2024 0.70 0.7 - 1.2 MG/DL Final 02/06/2024 0.80 0.7 - 1.2 MG/DL Final 02/05/2024 0.80 0.7 - 1.2 MG/DL Final Glucose Date Value Ref Range Status 02/07/2024 95 70 - 100 MG/DL Final Comment: NORMAL <100 mg/dL PREDIABETES 101-126 mg/dL DIABETES 126 mg/dL or higher 02/06/2024 100 70 - 100 MG/DL Final Comment: NORMAL <100 mg/dL PREDIABETES 101-126 mg/dL DIABETES 126 mg/dL or higher 02/05/2024 101 (H) 70 - 100 MG/DL Final Comment: NORMAL <100 mg/dL PREDIABETES 101-126 mg/dL DIABETES 126 mg/dL or higher PT Date Value Ref Range Status 01/11/2024 14.2 11.8 - 14.4 SEC Final 12/16/2023 17.9 (H) 11.8 - 14.4 SEC Final PROTEIN, TOTAL Date Value Ref Range Status 01/31/2024 6.1 (L) 6.3 - 8.2 GM/DL Final 01/23/2024 5.6 (L) 6.3 - 8.2 GM/DL Final 12/16/2023 7.2 6.3 - 8.2 GM/DL Final Albumin Date Value Ref Range Status 01/31/2024 3.0 (L) 3.5 - 5.0 G/DL Final 01/23/2024 2.6 (L) 3.5 - 5.0 G/DL Final 01/17/2024 2.6 (L) 3.5 - 5.0 G/dl Final AST Date Value Ref Range Status 01/31/2024 26 14 - 36 IU/L Final 01/23/2024 25 14 - 36 IU/L Final 12/16/2023 25 14 - 36 IU/L Final ALT Date Value Ref Range Status 01/31/2024 13 <35 IU/L Final 01/23/2024 10 <35 IU/L Final 12/16/2023 16 <35 IU/L Final BILIRUBIN, TOTAL Date Value Ref Range Status 01/31/2024 0.2 0.2 - 1.3 MG/DL Final CALCIUM Date Value Ref Range Status 02/07/2024 8.8 8.4 - 10.2 MG/DL Final 02/06/2024 8.6 8.4 - 10.2 MG/DL Final 02/05/2024 8.8 8.4 - 10.2 MG/DL Final PHOSPHORUS Date Value Ref Range Status 01/17/2024 2.6 2.5 - 4.5 MG/DL Final Lab Results Component Value Date CREATSERUM 0.70 02/07/2024 BUN 11 02/07/2024 SODIUM 133 (L) 02/07/2024 POTASSIUM 4.3 02/07/2024 CHLORIDE 105 02/07/2024 CO2 27 02/07/2024 ROS: Constitution: No fever, no chill HEENT: No headache, no sinus issues CV: No chest pain, no palpitation Lung: No cough, No SOB Abd: No diarrhea, no constipation Neuro: No seizure, no loss of consciousness Heme: No bleeding, no bruise PHYSICAL EXAM: Wt Readings from Last 3 Encounters: 02/06/24 108.5 kg (239 lb 1.6 oz) 02/02/24 109.3 kg (241 lb) 12/08/23 103 kg (227 lb) Temp Readings from Last 3 Encounters: 02/07/24 98.4 F (36.9 C) (Oral) 02/02/24 98.8 F (37.1 C) (Temporal) 01/19/24 98.2 F (36.8 C) (Temporal) BP Readings from Last 3 Encounters: 02/07/24 121/71 01/19/24 137/62 12/16/23 135/89 Pulse Readings from Last 3 Encounters: 02/07/24 94 01/19/24 89 12/16/23 73 Gen: NAD, lying in bed, conversant HEENT: Atraumatic, PERRLA, moist membrane CV: RRR, nl S1 and S2, no m/g/r Lung: CTAB, no wheezing, no crackle Abd: +BS, nontender, no distended Ext: No rash, no clubbing, no cyanosis. No edema. Neuro: CNII-XII grossly intact, 5/5 strength, normal tone Skin: Warm and dry Infectious Disease progress note SUBJECTIVE History of Present Illness: Cuate Goodman 83 y.o. female with a history of left degenerative hip disease with ongoing left hip pain with reported decreased quality of life due to this condition. The patient was seen by Orthopedics and Dr. Heredia performed surgery 01/10 with a left total hip arthroplasty. Total hip arthroplastic surgery on 01/10 did not have noted complications or infectious issues per chart review. The patient was subsequently discharged after an admission from 01/10-01/18 on the med surg unit without stated ID issue. There was no antibiotics at time of discharge. Pathology from knee replacement surgery showed consistent with degenerative joint disease without mention of infection. Has history of previous right total hip arthroplasty and left total knee arthroplasty noted. Past medical history also includes obesity, degenerative joint disease and history of DVT and PE. Additional history includes right bundle-branch block, diastolic dysfunction, B12 deficiency, impaired fasting glucose with normal preoperative A1c, elevated uric acid level, GERD, urinary incontinence, history of abdominal aortic aneurysm. Patient does have a history of penicillin allergy resulting in hives but no other allergies to antibiotics noted. The patient denies any tobacco, alcohol or drug use. No prior use reported. Patient was subsequently admitted swing bed for rehabilitation on 01/18. Patient underwent pain control, PT/OT and ongoing medical management. Patient was noted to have erythema that began around her left hip site approximately on 01/18 or 01/19 per nursing report. There has been no described drainage from her hip. Patient denies any specific areas pain in her hip joint. There is no reported fevers or chills or night sweats at time of initial consultation. The patient denies any new respiratory, abdominal or urinary symptoms. Specifically she denies any UTI symptoms Infectious disease consult 01/21/2024, patient began on Zyvox for superficial postop infection, Interval events: 24 hour events reviewed. No fevers reported. Dietary assessment today. Patient states she is doing better with eating per her report. Patient getting Betadine to left hip which is gradually improving. No pain. Patient states she is doing better with therapy and ambulated 200 ft per her report yesterday. Patient anxious to go home. ROS A complete review of systems are negative except those consistent with HPI OBJECTIVE Past Medical History: Diagnosis Date Aortic aneurysm Arthritis Deep vein thrombosis (DVT) GERD (gastroesophageal reflux disease) Past Medical History: Diagnosis Date Aortic aneurysm Arthritis Deep vein thrombosis (DVT) GERD (gastroesophageal reflux disease) Past Surgical History: Procedure Laterality Date ARTHROPLASTY HIP TOTAL Left 01/11/2024 Laterality: Left; Surgeon: Erik Heredia MD; Location: [facility] OR NEPHRECTOMY Right 1978 CHOLECYSTECTOMY HIP REPLACEMENT Right HYSTERECTOMY KNEE REPLACEMENT Bilateral left x 2 LITHOTRIPSY multiple Patient Active Problem List Diagnosis S/P total hip arthroplasty Gout Aneurysm of ascending aorta without rupture Aneurysmal dilatation Closed fracture of hand Fracture of metacarpal bone Gastro-esophageal reflux disease without esophagitis Hypomagnesemia Lumbar spondylosis Mixed stress and urge urinary incontinence Morbid (severe) obesity due to excess calories Other disorders of plasma-protein metabolism, not elsewhere classified Pulmonary embolism Solitary kidney, acquired Thoracic aortic ectasia Unilateral primary osteoarthritis, left hip Unsteadiness on feet S/P total left hip arthroplasty Social History Socioeconomic History Marital status: Single Spouse name: Not on file Number of children: Not on file Years of education: Not on file Highest education level: Not on file Occupational History Not on file Tobacco Use Smoking status: Never Smokeless tobacco: Never Substance and Sexual Activity Alcohol use: Never Drug use: Never Sexual activity: Not on file Other Topics Concern Not on file Social History Narrative Not on file Social Determinants of Health Financial Resource Strain: Low Risk (01/21/2024) Overall Financial Resource Strain (CARDIA) Difficulty of Paying Living Expenses: Not very hard Food Insecurity: No Food Insecurity (01/21/2024) Hunger Vital Sign Worried About Running Out of Food in the Last Year: Never true Ran Out of Food in the Last Year: Never true Transportation Needs: No Transportation Needs (01/21/2024) PRAPARE - Transportation Lack of Transportation (Medical): No Lack of Transportation (Non-Medical): No Physical Activity: Not on file Stress: Not on file Social Connections: Not on file Intimate Partner Violence: Not At Risk (01/21/2024) Humiliation, Afraid, Rape, and Kick questionnaire Fear of Current or Ex-Partner: No Emotionally Abused: No Physically Abused: No Sexually Abused: No Housing Stability: Low Risk (01/21/2024) Housing Stability Vital Sign Unable to Pay for Housing in the Last Year: No Number of Places Lived in the Last Year: 1 Unstable Housing in the Last Year: No Current Facility-Administered Medications: Acetaminophen (TYLENOL) tablet 650 mg, 650 mg, Oral, Q4H PRN, Mohan Gomez MD, 650 mg at 02/07/24 0908 Allopurinol (ZYLOPRIM) tablet 100 mg, 100 mg, Oral, Daily, Mohan Gomez MD, 100 mg at 02/07/24 0907 apixaban (ELIQUIS) tablet 5 mg, 5 mg, Oral, Q12H, Mohan Gomez MD, 5 mg at 02/07/24 0908 bisacodyl (DULCOLAX) suppository 10 mg, 10 mg, Rectal, Daily PRN, Mohan Gomez MD Cyclobenzaprine (FLEXERIL) tablet 5 mg, 5 mg, Oral, Q12H, Mohan Gomez MD, 5 mg at 02/07/24 0908 Docusate (COLACE) capsule 100 mg, 100 mg, Oral, Q12H, Mohan Gomez MD, 100 mg at 02/07/24 0908 ferrous sulfate tablet 325 mg, 325 mg, Oral, Daily, Mohan Gomez MD, 325 mg at 02/07/24 0908 hydroCODone-acetaminophen (NORCO) 5-325 MG per tablet 1 tablet, 1 tablet, Oral, Q4H PRN, Mohan Gomez MD, 1 tablet at 02/07/24 1210 hydroCODone-acetaminophen (NORCO) 5-325 MG per tablet 2 tablet, 2 tablet, Oral, Q4H PRN, Mohan Gomez MD, 2 tablet at 02/06/24 2305 lactulose (CHRONULAC) oral solution 20 g, 20 g, Oral, TID PRN, Mohan Gomez MD Lisinopril (PRINIVIL) tablet 5 mg, 5 mg, Oral, Daily, Mohan Gomez MD, 5 mg at 02/07/24 0908 multivitamin tablet 1 tablet, 1 tablet, Oral, Daily, Mohan Gomez MD, 1 tablet at 02/07/24 0908 nystatin (MYCOSTATIN) cream 1 Application, 1 Application, Topical, Q12H, Mohan Gomez MD, 1 Application at 02/07/24 0915 ondansetron (ZOFRAN-ODT) disintegrating tablet 4 mg, 4 mg, Oral, Q4H PRN, Mohan Gomez MD, 4 mg at 02/05/24 0923 Pantoprazole (PROTONIX) tablet DR 40 mg, 40 mg, Oral, Before BKF, Mohan Gmoez MD, 40 mg at 02/07/24 0555 Polyethylene glycol (MIRALAX) packet 17 g, 17 g, Oral, Q12H, Mohan Gomez MD, 17 g at 02/07/24 0907 Polyethylene glycol (MIRALAX) packet 17 g, 17 g, Oral, TID PRN, Mohan Gomez MD Povidone-Iodine (PROFEND) 10 % swab 1 Application, 1 Application, Topical, QHS, Mohan Gomez MD, 1 Application at 02/06/24 2213 senna-docusate (SENOKOT-S) 8.6-50 MG per tablet 2 tablet, 2 tablet, Oral, Q12H, Mohan Gomez MD, 2 tablet at 02/06/24 2157 Tolterodine (DETROL-LA) capsule XL 4 mg, 4 mg, Oral, Daily, Mohan Gomez MD, 4 mg at 02/07/24 0908 Zolpidem (AMBIEN) tablet 5 mg, 5 mg, Oral, QHS PRN, Mohan Gomez MD, 5 mg at 02/06/24 2306 Allergies Allergen Reactions Morphine Nausea and Vomiting Other Reaction(s): GI intolerance Oxycodone Nausea and Vomiting Other Reaction(s): GI intolerance Penicillins Hives Vitals: 02/06/24 1650 02/06/24 2030 02/07/24 0701 02/07/24 0732 BP: 136/70 145/85 Pulse: 102 91 Resp: 17 18 Temp: 98 degrees F (36.7 degrees C) 98.3 degrees F (36.8 degrees C) TempSrc: Oral Oral SpO2: 94% 94% 94% Weight: 108.5 kg (239 lb 1.6 oz) Height: Intake/Output Summary (Last 24 hours) at 02/07/2024 1620 Last data filed at 02/06/2024 2203 Gross per 24 hour Intake 590 ml Output -- Net 590 ml Physical Exam: CONSTITUTIONAL: Alert and Oriented, in no distress, afebrile HEENT: Normocephalic and atraumatic, Sclera anicteric, PERRL, mild thrush improving, dry lips improving and no visualized HSV lesions CARDIAC: Normal rate, regular rhythm, normal heart sounds and intact distal pulses, no murmurs/rubs/clicks/gallops RESP: Effort normal and breath sounds are normal, but distant. No respiratory distress. No Wheezing/Rales/Cough, RA GI: Soft. Bowel sounds are normal. Nontender. Nondistended. Morbid obesity : No Suprapubic tenderness EXTREMITES: No cyanosis, clubbing; positive for history of left total knee arthroplasty. History of right total hip arthroplasty. Left total hip arthroplasty with incision with minimal erythema, overall improved, no pain, no drainage. Betadine is in place. Left greater than right lower extremity edema DERM: Skin is warm and dry. No rash noted MUSCULARSKELETAL: No septic arthritis noted NEUROLOGIC: Alert and communicative LAB RESULTS: WBC (WHITE BLOOD COUNT) Date/Time Value Ref Range Status 02/07/2024 04:36 AM 5.1 3.6 - 11.0 10*3/uL Final 02/06/2024 04:53 AM 5.8 3.6 - 11.0 10*3/uL Final 02/05/2024 05:25 AM 5.0 3.6 - 11.0 10*3/uL Final 02/04/2024 05:25 AM 6.0 3.6 - 11.0 10*3/uL Final 02/03/2024 05:52 AM 6.3 3.6 - 11.0 10*3/uL Final 02/02/2024 05:14 AM 6.0 3.6 - 11.0 10*3/uL Final 02/01/2024 04:34 AM 5.8 3.6 - 11.0 10*3/uL Final HEMOGLOBIN (HGB) Date/Time Value Ref Range Status 02/07/2024 04:36 AM 10.5 (L) 12.0 - 16.0 G/DL Final 02/06/2024 04:53 AM 10.1 (L) 12.0 - 16.0 G/DL Final 02/05/2024 05:25 AM 10.4 (L) 12.0 - 16.0 G/DL Final 02/04/2024 05:25 AM 10.2 (L) 12.0 - 16.0 G/DL Final 02/03/2024 05:52 AM 10.7 (L) 12.0 - 16.0 G/DL Final 02/02/2024 05:14 AM 10.5 (L) 12.0 - 16.0 G/DL Final 02/01/2024 04:34 AM 10.6 (L) 12.0 - 16.0 G/DL Final HEMATOCRIT (HCT) Date/Time Value Ref Range Status 02/07/2024 04:36 AM 31.7 (L) 36.0 - 48.0 % Final 02/06/2024 04:53 AM 29.6 (L) 36.0 - 48.0 % Final 02/05/2024 05:25 AM 30.8 (L) 36.0 - 48.0 % Final 02/04/2024 05:25 AM 30.0 (L) 36.0 - 48.0 % Final 02/03/2024 05:52 AM 31.8 (L) 36.0 - 48.0 % Final 02/02/2024 05:14 AM 31.1 (L) 36.0 - 48.0 % Final 02/01/2024 04:34 AM 31.4 (L) 36.0 - 48.0 % Final PLATELET COUNT Date/Time Value Ref Range Status 02/07/2024 04:36 AM 366 130 - 400 10*3/uL Final 02/06/2024 04:53 AM 365 130 - 400 10*3/uL Final 02/05/2024 05:25 AM 378 130 - 400 10*3/uL Final 02/04/2024 05:25 AM 415 (H) 130 - 400 10*3/uL Final 02/03/2024 05:52 AM 472 (H) 130 - 400 10*3/uL Final 02/02/2024 05:14 AM 429 (H) 130 - 400 10*3/uL Final 02/01/2024 04:34 AM 479 (H) 130 - 400 10*3/uL Final POTASSIUM Date/Time Value Ref Range Status 02/07/2024 04:36 AM 4.3 3.5 - 5.1 MMOL/L Final 02/06/2024 04:53 AM 4.4 3.5 - 5.1 MMOL/L Final 02/05/2024 05:25 AM 4.3 3.5 - 5.1 MMOL/L Final 02/04/2024 05:25 AM 4.4 3.5 - 5.1 MMOL/L Final 02/03/2024 05:52 AM 4.4 3.5 - 5.1 MMOL/L Final 02/02/2024 05:14 AM 4.2 3.5 - 5.1 MMOL/L Final 02/01/2024 04:34 AM 4.4 3.5 - 5.1 MMOL/L Final CHLORIDE Date/Time Value Ref Range Status 02/07/2024 04:36 AM 105 98 - 107 MMOL/L Final Comment: Please note: Triglyceride levels of 600mg/dL or higher may positively bias chloride results by approximately 2.1 mmol 02/06/2024 04:53 AM 104 98 - 107 MMOL/L Final Comment: Please note: Triglyceride levels of 600mg/dL or higher may positively bias chloride results by approximately 2.1 mmol 02/05/2024 05:25 AM 104 98 - 107 MMOL/L Final Comment: Please note: Triglyceride levels of 600mg/dL or higher may positively bias chloride results by approximately 2.1 mmol 02/04/2024 05:25 AM 104 98 - 107 MMOL/L Final Comment: Please note: Triglyceride levels of 600mg/dL or higher may positively bias chloride results by approximately 2.1 mmol 02/03/2024 05:52 AM 104 98 - 107 MMOL/L Final Comment: Please note: Triglyceride levels of 600mg/dL or higher may positively bias chloride results by approximately 2.1 mmol 02/02/2024 05:14 AM 103 98 - 107 MMOL/L Final Comment: Please note: Triglyceride levels of 600mg/dL or higher may positively bias chloride results by approximately 2.1 mmol 02/01/2024 04:34 AM 103 98 - 107 MMOL/L Final Comment: Please note: Triglyceride levels of 600mg/dL or higher may positively bias chloride results by approximately 2.1 mmol CARBON DIOXIDE (CO2) Date/Time Value Ref Range Status 02/07/2024 04:36 AM 27 22 - 30 MMOL/L Final 02/06/2024 04:53 AM 29 22 - 30 MMOL/L Final 02/05/2024 05:25 AM 30 22 - 30 MMOL/L Final 02/04/2024 05:25 AM 31 (H) 22 - 30 MMOL/L Final 02/03/2024 05:52 AM 29 22 - 30 MMOL/L Final 02/02/2024 05:14 AM 30 22 - 30 MMOL/L Final 02/01/2024 04:34 AM 28 22 - 30 MMOL/L Final Glucose Date/Time Value Ref Range Status 02/07/2024 04:36 AM 95 70 - 100 MG/DL Final Comment: NORMAL <100 mg/dL PREDIABETES 101-126 mg/dL DIABETES 126 mg/dL or higher 02/06/2024 04:53 AM 100 70 - 100 MG/DL Final Comment: NORMAL <100 mg/dL PREDIABETES 101-126 mg/dL DIABETES 126 mg/dL or higher 02/05/2024 05:25 AM 101 (H) 70 - 100 MG/DL Final Comment: NORMAL <100 mg/dL PREDIABETES 101-126 mg/dL DIABETES 126 mg/dL or higher 02/04/2024 05:25 AM 96 70 - 100 MG/DL Final Comment: NORMAL <100 mg/dL PREDIABETES 101-126 mg/dL DIABETES 126 mg/dL or higher 02/03/2024 05:52 AM 100 70 - 100 MG/DL Final Comment: NORMAL <100 mg/dL PREDIABETES 101-126 mg/dL DIABETES 126 mg/dL or higher 02/02/2024 05:14 AM 103 (H) 70 - 100 MG/DL Final Comment: NORMAL <100 mg/dL PREDIABETES 101-126 mg/dL DIABETES 126 mg/dL or higher 02/01/2024 04:34 AM 98 70 - 100 MG/DL Final Comment: NORMAL <100 mg/dL PREDIABETES 101-126 mg/dL DIABETES 126 mg/dL or higher BUN Date/Time Value Ref Range Status 02/07/2024 04:36 AM 11 7 - 20 MG/DL Final 02/06/2024 04:53 AM 17 7 - 20 MG/DL Final 02/05/2024 05:25 AM 14 7 - 20 MG/DL Final 02/04/2024 05:25 AM 18 7 - 20 MG/DL Final 02/03/2024 05:52 AM 17 7 - 20 MG/DL Final 02/02/2024 05:14 AM 18 7 - 20 MG/DL Final 02/01/2024 04:34 AM 14 7 - 20 MG/DL Final CREATININE SERUM Date/Time Value Ref Range Status 02/07/2024 04:36 AM 0.70 0.7 - 1.2 MG/DL Final 02/06/2024 04:53 AM 0.80 0.7 - 1.2 MG/DL Final 02/05/2024 05:25 AM 0.80 0.7 - 1.2 MG/DL Final 02/04/2024 05:25 AM 0.80 0.7 - 1.2 MG/DL Final 02/03/2024 05:52 AM 0.90 0.7 - 1.2 MG/DL Final 02/02/2024 05:14 AM 0.90 0.7 - 1.2 MG/DL Final 02/01/2024 04:34 AM 0.90 0.7 - 1.2 MG/DL Final Albumin Date/Time Value Ref Range Status 01/31/2024 06:12 AM 3.0 (L) 3.5 - 5.0 G/DL Final 01/23/2024 04:37 AM 2.6 (L) 3.5 - 5.0 G/DL Final 01/17/2024 04:31 AM 2.6 (L) 3.5 - 5.0 G/dl Final 12/16/2023 12:35 PM 4.0 3.5 - 5.0 G/dl Final CALCIUM Date/Time Value Ref Range Status 02/07/2024 04:36 AM 8.8 8.4 - 10.2 MG/DL Final 02/06/2024 04:53 AM 8.6 8.4 - 10.2 MG/DL Final 02/05/2024 05:25 AM 8.8 8.4 - 10.2 MG/DL Final 02/04/2024 05:25 AM 8.8 8.4 - 10.2 MG/DL Final 02/03/2024 05:52 AM 9.1 8.4 - 10.2 MG/DL Final 02/02/2024 05:14 AM 8.9 8.4 - 10.2 MG/DL Final 02/01/2024 04:34 AM 8.9 8.4 - 10.2 MG/DL Final ALKALINE PHOSPHATASE Date/Time Value Ref Range Status 01/31/2024 06:12 AM 107 38 - 126 IU/L Final 01/23/2024 04:37 AM 99 38 - 126 IU/L Final 12/16/2023 12:35 PM 89 38 - 126 IU/L Final AST Date/Time Value Ref Range Status 01/31/2024 06:12 AM 26 14 - 36 IU/L Final 01/23/2024 04:37 AM 25 14 - 36 IU/L Final 12/16/2023 12:35 PM 25 14 - 36 IU/L Final BILIRUBIN, TOTAL Date/Time Value Ref Range Status 01/31/2024 06:12 AM 0.2 0.2 - 1.3 MG/DL Final 01/23/2024 04:37 AM 0.3 0.2 - 1.3 MG/DL Final 12/16/2023 12:35 PM 0.3 0.2 - 1.3 MG/DL Final ANION GAP Date/Time Value Ref Range Status 02/07/2024 04:36 AM 1 (L) 8 - 16 MMOL/L Final 02/06/2024 04:53 AM 2 (L) 8 - 16 MMOL/L Final 02/05/2024 05:25 AM 1 (L) 8 - 16 MMOL/L Final 02/04/2024 05:25 AM 1 (L) 8 - 16 MMOL/L Final 02/03/2024 05:52 AM 2 (L) 8 - 16 MMOL/L Final 02/02/2024 05:14 AM 1 (L) 8 - 16 MMOL/L Final 02/01/2024 04:34 AM 2 (L) 8 - 16 MMOL/L Final ALT Date/Time Value Ref Range Status 01/31/2024 06:12 AM 13 <35 IU/L Final 01/23/2024 04:37 AM 10 <35 IU/L Final 12/16/2023 12:35 PM 16 <35 IU/L Final ESTIMATED GFR, NON AMER Date/Time Value Ref Range Status 02/07/2024 04:36 AM 85 ml/min/1.73sq.m Final 02/06/2024 04:53 AM 73 ml/min/1.73sq.m Final 02/05/2024 05:25 AM 73 ml/min/1.73sq.m Final 02/04/2024 05:25 AM 73 ml/min/1.73sq.m Final 02/03/2024 05:52 AM 64 ml/min/1.73sq.m Final 02/02/2024 05:14 AM 64 ml/min/1.73sq.m Final 02/01/2024 04:34 AM 64 ml/min/1.73sq.m Final ESTIMATED GFR, Date/Time Value Ref Range Status 02/07/2024 04:36 AM 103 ml/min/1.73sq.m Final 02/06/2024 04:53 AM 89 ml/min/1.73sq.m Final 02/05/2024 05:25 AM 89 ml/min/1.73sq.m Final 02/04/2024 05:25 AM 89 ml/min/1.73sq.m Final 02/03/2024 05:52 AM 77 ml/min/1.73sq.m Final 02/02/2024 05:14 AM 77 ml/min/1.73sq.m Final 02/01/2024 04:34 AM 77 ml/min/1.73sq.m Final GFR COMMENT Date/Time Value Ref Range Status 02/07/2024 04:36 AM Average GFR for 70+ years old = 75. Final Comment: Chronic Kidney disease, GFR = <60. Kidney failure, GFR = <15. The GFR estimate is not adjusted for extreme body surface area or acute process, nor has it been validated for women or ethnic groups other than and . CBC Lab Results Component Value Date WBC 5.1 02/07/2024 HGB 10.5 (L) 02/07/2024 HCT 31.7 (L) 02/07/2024 PLATELET 366 02/07/2024 MCV 98.4 02/07/2024 EDIF Lab Results Component Value Date RBCDISTRIBU 16.0 (H) 02/07/2024 EOSINOPHILS 3.8 02/07/2024 EOSINOPHILS 0.2 02/07/2024 BASOPHILS 0.9 02/07/2024 BASOPHILS 0.0 02/07/2024 LYMPHOCYTABS 1.4 02/07/2024 PLATELET 366 02/07/2024 MPV 7.2 (L) 02/07/2024 Lab Results Component Value Date SODIUM 133 (L) 02/07/2024 POTASSIUM 4.3 02/07/2024 CHLORIDE 105 02/07/2024 CO2 27 02/07/2024 BUN 11 02/07/2024 CREATSERUM 0.70 02/07/2024 GLUCOSE 95 02/07/2024 Micro C difficile stool 01/23- Urine culture 01/20- 01/20 Nares - 12/16/2023 positive nares test for MSSA 12/15 urine test positive for Klebsiella only resistant to ampicillin and Macrobid XR CHEST 1 VIEW PORTABLE Final Result IMPRESSION: 1. Cardiomegaly. 2. Aortic tortuosity. 3. Minor effusion in the left lung base is suspected. 4. Both lungs are expanded. I am not seeing any obvious displaced fracture although detail is limited. There are accentuated interstitial markings which may well be chronic. ASSESSMENT AND PLAN . Cuate Goodman 83 y.o. with a history of multiple medical problems including DVT/PE, morbid obesity, degenerative joint disease presents with left hip pain undergoing left total hip arthroplasty on 01/10 showing degenerative changes Left total hip arthroplasty, concern for superficial wound infection -history of development of erythema around the incision site on 01/18 or 01/19 without systemic signs of infection -No drainage for wound cx -perioperative nares culture was positive for MSSA, repeat culture 01/20 negative -antibiotic therapy will be given especially in the setting of underlying hardware in the postop period to try to prevent any spread of superficial infection to deeper areas of hardware and this was discussed with her and all questions answered -s/p zyvox 01/20-01/26 -s/p Septra 01/26-01/29 -s/p mupirocin twice daily, 01/22-01/26 -recommend avoiding any rubbing of the undergarments, discussed with nursing -status post 10 day course of antibiotics, discontinued on 01/29. -overall slowly healing without clear evidence of infection -Betadine paint to Wound incision per orthopedics -x-ray shows good position of hardware History of Klebsiella positive urine culture -urinalysis 12/15 with too numerous to count white cells and +3 bacteria -history of Klebsiella positive urine culture in November of 2023 only resistant to ampicillin and Macrobid -patient denies any urinary symptoms and UA bland, culture 01/20 negative Inflammatory markers -CRP 58, 42, 46, 33, 28, 28, 30, 28, 25, 27, 26, 26, 21, 21, 21, 22, 19 -ESR 71, repeat in am -CRP gradually improving. Anemia -hemoglobin 9.5, 10.7, 10, 10.1, 10.1, 9.8, 10.3, 10.6, 10, 10.3, 10, 10.6, 10.5, 10.7, 10.2, 10.4, 10.1, 10.5 -previous anemia workup in November of 2022 was negative with normal iron, B12 and folate studies -Fe 37 -hemoglobin stable Healthcare maintenance -hemoglobin A1c normal at 5.7 on 12/15 History of DVT/PE -anticoagulation per primary team Disposition -ongoing PT/OT Diarrhea, history -C diff testing and GI pathogen panel negative during admission -probiotic prescribed. -suspicious for a viral process -Resolved Nutrition -dietitian to evaluate Posterior thigh wounds -wound care consulted -Offloading Janet Moreno MD NUTRITION ASSESSMENT LENGTH OF STAY Ms. Cuate Goodman is a 83 y.o. female was admitted to [facility] for: 1. S/P total left hip arthroplasty 2. Status post total replacement of left hip Nutrition Assessment Subjective assessment / comments: Pt has been admitted to swing bed for strengthening/rehab needs 2/2 s/p hip arthroplasty by Dr. eHredia. 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 She was provided alternative menu for improved food choices. She has not wanted Ensure ONS as they are too chalky but she mentioned BOOST, however those are not provided here at this time. She understood. Currently labs are WNL however noted that a PAB was 11.9 mg/dl moderately depleted, however this is not an adequate indicator of nutritional status and more reflective of inflammation. Pt with fair intakes noted since admit. Her weight has decreased by 19 lbs over ~[address] is unsure if all weights have been consistent (standing scale vs bed scale). Pt did have fluid losses when admitted. Patient to be encouraged to consume adequate intakes at all meals to maintain LBM and prevent muscle wasting. Nutrition-Related Hx: Appetite: good and fair Nausea: No Vomiting: No Diarrhea: No Malnutrition Screening Tool: Nutrition Risk Screening (MST) Have you recently lost weight without trying?: 0- no Have you been eating poorly because of decreased appetite?: 0- No Malnutrition Screening Tool Score: 0 Nutrition: 3-->adequate Anthropometrics: Ht Readings from Last 1 Encounters: 01/19/24 1.626 m (5' 4 ) Wt Readings from Last 15 Encounters: 02/06/24 108.5 kg (239 lb 1.6 oz) 02/02/24 109.3 kg (241 lb) 12/08/23 103 kg (227 lb) 12/01/23 103 kg (227 lb) [place] body weight: 54.7 kg (120 lb 9.5 oz) Adjusted ideal body weight: 76.2 kg (167 lb 15.9 oz) Body mass index is 41.04 kg/m . Classified as: Class III Obesity Recent weight loss: Yes - 19 lbs (7%) over ~2 weeks Is weight loss clinically significant: Yes Current Diet Orders Procedures DIET REGULAR Standing Status: Standing Number of Occurrences: 1 Allergies Allergen Reactions Morphine Nausea and Vomiting Other Reaction(s): GI intolerance Oxycodone Nausea and Vomiting Other Reaction(s): GI intolerance Penicillins Hives Nutrition Related Laboratory Values: Lab Results Component Value Date GLUCOSE 95 02/07/2024 GLUCOSE 100 02/06/2024 GLUCOSE 101 (H) 02/05/2024 HGBA1C 5.7 12/16/2023 SODIUM 133 (L) 02/07/2024 POTASSIUM 4.3 02/07/2024 PHOSPHORUS 2.6 01/17/2024 CALCIUM 8.8 02/07/2024 ALBUMIN 3.0 (L) 01/31/2024 PREALBUMIN 11.9 (L) 01/31/2024 TP 6.1 (L) 01/31/2024 BUN 11 02/07/2024 CREATSERUM 0.70 02/07/2024 AST 26 01/31/2024 ALT 13 01/31/2024 CRP 19.6 (H) 02/07/2024 HGB 10.5 (L) 02/07/2024 HCT 31.7 (L) 02/07/2024 IRON 37 01/22/2024 WBC 5.1 02/07/2024 RBC 3.23 (L) 02/07/2024 [id number] 16.9 01/20/2024 PMH & PSH: Past Medical History: Diagnosis Date Aortic aneurysm Arthritis Deep vein thrombosis (DVT) GERD (gastroesophageal reflux disease) Past Surgical History: Procedure Laterality Date ARTHROPLASTY HIP TOTAL Left 01/11/2024 Laterality: Left; Surgeon: Erik Heredia MD; Location: [facility] OR NEPHRECTOMY Right 1978 CHOLECYSTECTOMY HIP REPLACEMENT Right HYSTERECTOMY KNEE REPLACEMENT Bilateral left x 2 LITHOTRIPSY multiple Nutrition Diagnosis NI-5.1 Increased nutrient needs (specify: protein/energy) related to wound /bone healing as evidenced by patient is s/p left total hip arthroplasty by Dr. Heredia 01/11/2024. Interventions Oral Nutrition Supplements: Patient has refused due to chalkiness of Ensures Diet Order: Regular Encourage good po intakes, small/frequent meals and snacks as tolerated Provide Alternative Menu for enhanced food choices Monitoring and Evaluation Monitor patient weight, labs, and PO intake Daily weights at 0400 by nursing Meet estimated energy needs through PO intakes or alternative means of nutrition Maintain CBW & prevent weight loss Preserve lean body mass Prevent nutritional deficiencies Maintain electrolyte and fluid balance Patient at Low nutritional risk. Reassess 1 time per week. Available by consult. ALDO Linn Registered Dietitian, Licensed Dietitian 02/07/24 02/07/24 1400 Physical Therapy Minutes Start Time 1400 Stop Time 1440 Time Calculation 40 General Pain Documentation (Adult, OB, Peds) Presence of Pain denies pain/discomfort Presence of Pain Score (Auto-calculated) 0 Sit to Stand Assistance Needed Adaptive equipment;Supervision Physical Assistance Level No physical assistance Comment supervision + FWW CARE Score - Sit to Stand 4 Gait Assessment Distance Walked 206ft total with 2 brief seated rest breaks Gait Equipment two-wheeled walker Deviations (L LE TTWB maintained although patient keeps her right heel off the floor as well) Gait Pattern (step to) Gait Comments verbal cuing for patient to keep heel-toe pattern right LE as able Walk 10 Feet Assistance Needed Adaptive equipment;Supervision Physical Assistance Level No physical assistance Comment supervision + FWW CARE Score - Walk 10 Feet 4 1 Step (Curb) Assistance Needed Adaptive equipment;Incidental touching Physical Assistance Level No physical assistance Comment SBA + FWW CARE Score - 1 Step (Curb) 4 Patient left seated in bedside chair with call light within reach. Denies further needs. 02/07/24 1344 Occupational Therapy Minutes Start Time 1320 Stop Time 1344 Time Calculation 24 OT Individual Minutes 24 minutes OT Activities OT Activities General OT Activity General OT Activity 3 Activity Name AE review Activity Details Pt review of AE for assisting with ADLs; pt declined need for elastic shoe laces for shoes General OT Activity 4 Activity Name Fall prevention Activity Details Pt review of fall prevention techniques S: Pt declined need for additional UB exercises and/or HEP hand-out, due to completing theraband exercises this am and due to I have my own L shoulder exercises I do ; pt stated she uses theraband in the evenings as well. Pt stated that she's hopeful to return home tomorrow. A: Pt verbalized good understanding of fall prevention and AE, verbalizing ADL/IADL examples. P: Continue OT per Plan of Care. DEVIN Mendoza/L 02/07/24 1028 Occupational Therapy Minutes Start Time 1028 Stop Time 1100 Time Calculation 32 OT Individual Minutes 32 minutes Toileting Hygiene Assistance Needed Set-up / clean-up;Supervision;Verbal cues;Adaptive equipment Physical Assistance Level No physical assistance Comment Patient completed chase hygiene in sitting, prakash provided wet cloth for patient to complete posterior chase hygiene in standing using standward walker to maintain balance, requiring verbal cues as reminder of TTWB status. CARE Score - Toileting Hygiene 4 Toilet Transfer Assistance Needed Adaptive equipment;Supervision;Verbal cues Physical Assistance Level No physical assistance Comment Prakash provided reminder of TTWB status L LE. Patient completed commode transfer using standard walker and supervision for safety. CARE Score - Toilet Transfer 4 S: Patient reported might be going home on Wednesday and is ready to go home. Patient reported living alone and caring for her 14 year old Labrador Retriever, ties her out inside. Reported she does not wear socks inside, so no need to educate of sock aid. Reported she has a hip kit (adaptive equipment). Reported she has a stool in her kitchen to perform meal prep and cooking tasks from seated position as much as possible and has all utensils within reach. O: Seen for toileting (see above) in addition patient agreeable to only exercises using orange headband 15 reps x 1 set with B UE in all applicable planes. A: Praaksh observed patient not consistently TTWB during standing and ambulation and provided cues. P: Continue OT per POC. May benefit from IADL or standing tolerance session to increase safety focusing on TTWB L LE. DEVIN Sullivan 02/07/2024 02/07/24 1125 Time In/Out Time In 1125 Time Out 1149 Total Visit Time 24 minutes Total Treatment Time (skilled, billable minutes) 24 minutes General Pain Documentation (Adult, OB, Peds) Presence of Pain denies pain/discomfort Presence of Pain Score (Auto-calculated) 0 Objective Therapeutic Interventions Pt up in recliner agreeable to PT treatment. Sit<>stand from recliner SBA using FWW. Pt ambulated 140ft and 46ft using FWW SBA with chair follow per pt request. Pt ambulates with TTWB on LLE. Pt refused to wear non slip socks and wears a cut non slip sock on RLE on middle of R foot. Pt reports feeling fatigued and required seated rest break between gait trails. Transfer Skill: Sit To Stand, Rehab Eval [place] (Sit-Stand Transfers) supervision Physical Assist/Nonphysical Assist: Sit/Stand supervision Weight-Bearing Restrictions: Sit/Stand toe touch weight-bearing Assistive Device For Transfer: Sit/Stand 2 wheeled walker Gait Skills, PT Eval Level of [place]: Gait supervision Physical Assist/Nonphysical Assist: Gait 1 person assist;supervision Weight-Bearing Restrictions: Gait toe touch weight-bearing Clinical Impression Co-evaluation/co-treatment performed? No simultaneous skilled care performed Criteria for Skilled Therapeutic Interventions Met (PT Eval) yes, treatment indicated Impairments Found (PT Eval) Strength;Balance Rehab Potential (PT Eval) good Therapy Frequency 7 times a week Continue care plan yes Plan Plan for next visit Plan to work on steps next treatment. Pt in recliner at end of treatment with chair alarm on and blinking green, call light and tray table in reach. DAILY PROGRESS NOTE Admit Date: 01/19/2024 [facility] LOS: 19 days IMPRESSION AND PLAN: 83 y.o. 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 1) Severe left hip arthritis s/p total hip arthroplasty PT/OT Continue with eliquis Continue with flexeril Continue with norco PRN Continue with senokot PRN Continue with tramadol PRN Encourage compliance with PT/OT. Persistent weakness noted. 2) Chronic normocytic anemia H and H 9.8 -> 9.5 -> 10.7 -> 10.0 -> 10.1 -> 9.8 -> 10.3 -> 10.6 -> 10.0 -> 10.3 -> 10.0 -> 10.6 -> 10.5 -> 10.7 -> 10.4 -> 10.1 and 29.2 -> 27.7 -> 31.8 -> 29.1 -> 29.3 -> 29.4 -> 29.0 -> 30.7 -> 31.3 -> >29.3 -> 29.9 -> 29.3 -> 31.4 -> 31.1 -> 31.8 -> 30.8 -> 29.6 Fe 29, TIBC 144, transferrin 20 Continue with iron Serial CBC 3) Gout Currently on allopurinol 4) GERD Currently on protonix. 5) Diarrhea Probably viral C. Diff is negative GI panel is negative. Workup is negative to-date Supportive care. Monitor for hypotension Monitor for hypokalemia Improved. 6) Cellulitis Antibiotic therapy will be given especially in the setting of underlying hardware in the postop period to try to prevent any spread of superficial infection to deeper areas of hardware CRP 58.3 -> 33.6 -> 28.4 -> 30.5 -> 28.9 -> 25.8 -> 26.1 -> 21.4-> 26.3 -> 21.9 -> 22.7, stable. Finished a course of linezolid Finished a course of bactrobran Finished a course of bactrim DS BID. Continue with nystatin cream Encourage PO intake. Followed by ID 7) HTN SBP 120/90s Continue with lisinopril. 8) Mild oral thrush Nystatin swish and swallow, continue symptomatic treatment of lip dryness 9) Urinary incontinence UA is bland. Supportive care SUBJECTIVE: Patient seen and examined. Chart, medications, labs reviewed. Office Visit on 02/02/2024 Component Date Value Ref Range Status BSA 02/02/2024 2.18 m2 In process LABS Labs-ABGs Labs-CBC @[id number]@ Labs-Chem 7([facility]) Bun/Creat/Cl/CO2/Glucose: 17/0.80/104/29/100 (02/05 453) Na/K+/Phos/Mg/Ca: 135/4.4/--/--/8.6 (02/05 453) Labs-Coags WBC (WHITE BLOOD COUNT) Date Value Ref Range Status 02/06/2024 5.8 3.6 - 11.0 10*3/uL Final 02/05/2024 5.0 3.6 - 11.0 10*3/uL Final 02/04/2024 6.0 3.6 - 11.0 10*3/uL Final HEMOGLOBIN (HGB) Date Value Ref Range Status 02/06/2024 10.1 (L) 12.0 - 16.0 G/DL Final 02/05/2024 10.4 (L) 12.0 - 16.0 G/DL Final 02/04/2024 10.2 (L) 12.0 - 16.0 G/DL Final HEMATOCRIT (HCT) Date Value Ref Range Status 02/06/2024 29.6 (L) 36.0 - 48.0 % Final 02/05/2024 30.8 (L) 36.0 - 48.0 % Final 02/04/2024 30.0 (L) 36.0 - 48.0 % Final PLATELET COUNT Date Value Ref Range Status 02/06/2024 365 130 - 400 10*3/uL Final 02/05/2024 378 130 - 400 10*3/uL Final 02/04/2024 415 (H) 130 - 400 10*3/uL Final SODIUM Date Value Ref Range Status 02/06/2024 135 (L) 137 - 145 MMOL/L Final 02/05/2024 135 (L) 137 - 145 MMOL/L Final 02/04/2024 136 (L) 137 - 145 MMOL/L Final CHLORIDE Date Value Ref Range Status 02/06/2024 104 98 - 107 MMOL/L Final Comment: Please note: Triglyceride levels of 600mg/dL or higher may positively bias chloride results by approximately 2.1 mmol 02/05/2024 104 98 - 107 MMOL/L Final Comment: Please note: Triglyceride levels of 600mg/dL or higher may positively bias chloride results by approximately 2.1 mmol 02/04/2024 104 98 - 107 MMOL/L Final Comment: Please note: Triglyceride levels of 600mg/dL or higher may positively bias chloride results by approximately 2.1 mmol BUN Date Value Ref Range Status 02/06/2024 17 7 - 20 MG/DL Final 02/05/2024 14 7 - 20 MG/DL Final 02/04/2024 18 7 - 20 MG/DL Final POTASSIUM Date Value Ref Range Status 02/06/2024 4.4 3.5 - 5.1 MMOL/L Final 02/05/2024 4.3 3.5 - 5.1 MMOL/L Final 02/04/2024 4.4 3.5 - 5.1 MMOL/L Final CREATININE SERUM Date Value Ref Range Status 02/06/2024 0.80 0.7 - 1.2 MG/DL Final 02/05/2024 0.80 0.7 - 1.2 MG/DL Final 02/04/2024 0.80 0.7 - 1.2 MG/DL Final Glucose Date Value Ref Range Status 02/06/2024 100 70 - 100 MG/DL Final Comment: NORMAL <100 mg/dL PREDIABETES 101-126 mg/dL DIABETES 126 mg/dL or higher 02/05/2024 101 (H) 70 - 100 MG/DL Final Comment: NORMAL <100 mg/dL PREDIABETES 101-126 mg/dL DIABETES 126 mg/dL or higher 02/04/2024 96 70 - 100 MG/DL Final Comment: NORMAL <100 mg/dL PREDIABETES 101-126 mg/dL DIABETES 126 mg/dL or higher PT Date Value Ref Range Status 01/11/2024 14.2 11.8 - 14.4 SEC Final 12/16/2023 17.9 (H) 11.8 - 14.4 SEC Final PROTEIN, TOTAL Date Value Ref Range Status 01/31/2024 6.1 (L) 6.3 - 8.2 GM/DL Final 01/23/2024 5.6 (L) 6.3 - 8.2 GM/DL Final 12/16/2023 7.2 6.3 - 8.2 GM/DL Final Albumin Date Value Ref Range Status 01/31/2024 3.0 (L) 3.5 - 5.0 G/DL Final 01/23/2024 2.6 (L) 3.5 - 5.0 G/DL Final 01/17/2024 2.6 (L) 3.5 - 5.0 G/dl Final AST Date Value Ref Range Status 01/31/2024 26 14 - 36 IU/L Final 01/23/2024 25 14 - 36 IU/L Final 12/16/2023 25 14 - 36 IU/L Final ALT Date Value Ref Range Status 01/31/2024 13 <35 IU/L Final 01/23/2024 10 <35 IU/L Final 12/16/2023 16 <35 IU/L Final BILIRUBIN, TOTAL Date Value Ref Range Status 01/31/2024 0.2 0.2 - 1.3 MG/DL Final CALCIUM Date Value Ref Range Status 02/06/2024 8.6 8.4 - 10.2 MG/DL Final 02/05/2024 8.8 8.4 - 10.2 MG/DL Final 02/04/2024 8.8 8.4 - 10.2 MG/DL Final PHOSPHORUS Date Value Ref Range Status 01/17/2024 2.6 2.5 - 4.5 MG/DL Final Lab Results Component Value Date CREATSERUM 0.80 02/06/2024 BUN 17 02/06/2024 SODIUM 135 (L) 02/06/2024 POTASSIUM 4.4 02/06/2024 CHLORIDE 104 02/06/2024 CO2 29 02/06/2024 ROS: Constitution: No fever, no chill HEENT: No headache, no sinus issues CV: No chest pain, no palpitation Lung: No cough, No SOB Abd: No diarrhea, no constipation Neuro: No seizure, no loss of consciousness Heme: No bleeding, no bruise PHYSICAL EXAM: Wt Readings from Last 3 Encounters: 02/06/24 108.5 kg (239 lb 1.6 oz) 02/02/24 109.3 kg (241 lb) 12/08/23 103 kg (227 lb) Temp Readings from Last 3 Encounters: 02/06/24 98.3 F (36.8 C) (Oral) 02/02/24 98.8 F (37.1 C) (Temporal) 01/19/24 98.2 F (36.8 C) (Temporal) BP Readings from Last 3 Encounters: 02/06/24 106/57 01/19/24 137/62 12/16/23 135/89 Pulse Readings from Last 3 Encounters: 02/06/24 87 01/19/24 89 12/16/23 73 Gen: NAD, lying in bed, conversant HEENT: Atraumatic, PERRLA, moist membrane CV: RRR, nl S1 and S2, no m/g/r Lung: CTAB, no wheezing, no crackle Abd: +BS, nontender, no distended Ext: No rash, no clubbing, no cyanosis. No edema. Neuro: CNII-XII grossly intact, 5/5 strength, normal tone Skin: Warm and dry 02/06/24 1048 Physical Therapy Minutes Start Time 1048 Stop Time 1111 Time Calculation 23 PT Individual Minutes 23 minutes General Pain Documentation (Adult, OB, Peds) Presence of Pain denies pain/discomfort Presence of Pain Score (Auto-calculated) 0 Pt sitting up in room chair and agreeable to therapy; pt mood is improved from yesterday and she stated that she was feeling much better today and was having a good morning; therapist provided SBA and assist with set up for STS from room chair to RW; therapist provided SBA and verbal cues to maintain TTWB on LLE pt ambulated [id number] and [id number] with X1 seated rest; pt ambulated with improved TTWB follow through this date and demonstrated good balance; pt navigated 90 degree and 180 degree turns with CGA on turns only; therapist provided Min assist for STS from WC to RW; pt seated in room chair with all needs met post session; pt denied all further interventions stating that she was tired and had done enough for today Rianna Phillips PTA Infectious Disease progress note SUBJECTIVE History of Present Illness: Cuate Goodman 83 y.o. female with a history of left degenerative hip disease with ongoing left hip pain with reported decreased quality of life due to this condition. The patient was seen by Orthopedics and Dr. Heredia performed surgery 01/10 with a left total hip arthroplasty. Total hip arthroplastic surgery on 01/10 did not have noted complications or infectious issues per chart review. The patient was subsequently discharged after an admission from 01/10-01/18 on the med surg unit without stated ID issue. There was no antibiotics at time of discharge. Pathology from knee replacement surgery showed consistent with degenerative joint disease without mention of infection. Has history of previous right total hip arthroplasty and left total knee arthroplasty noted. Past medical history also includes obesity, degenerative joint disease and history of DVT and PE. Additional history includes right bundle-branch block, diastolic dysfunction, B12 deficiency, impaired fasting glucose with normal preoperative A1c, elevated uric acid level, GERD, urinary incontinence, history of abdominal aortic aneurysm. Patient does have a history of penicillin allergy resulting in hives but no other allergies to antibiotics noted. The patient denies any tobacco, alcohol or drug use. No prior use reported. Patient was subsequently admitted swing bed for rehabilitation on 01/18. Patient underwent pain control, PT/OT and ongoing medical management. Patient was noted to have erythema that began around her left hip site approximately on 01/18 or 01/19 per nursing report. There has been no described drainage from her hip. Patient denies any specific areas pain in her hip joint. There is no reported fevers or chills or night sweats at time of initial consultation. The patient denies any new respiratory, abdominal or urinary symptoms. Specifically she denies any UTI symptoms Infectious disease consult 01/21/2024, patient began on Zyvox for superficial postop infection, Interval events: 24 hour events reviewed. Resting comfortably in bed. Off of antibiotics and receiving Betadine to the wound which is ongoing. 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 No pain reported. No drainage noted. Patient states that she ate very well yesterday as family broad an [employer] food for her. She did have 1 episode of nausea but then it resolved. No other complaints including no respiratory, abdominal or urinary symptoms. ROS A complete review of systems are negative except those consistent with HPI OBJECTIVE Past Medical History: Diagnosis Date Aortic aneurysm Arthritis Deep vein thrombosis (DVT) GERD (gastroesophageal reflux disease) Past Medical History: Diagnosis Date Aortic aneurysm Arthritis Deep vein thrombosis (DVT) GERD (gastroesophageal reflux disease) Past Surgical History: Procedure Laterality Date ARTHROPLASTY HIP TOTAL Left 01/11/2024 Laterality: Left; Surgeon: Erik Heredia MD; Location: [facility] OR NEPHRECTOMY Right 1978 CHOLECYSTECTOMY HIP REPLACEMENT Right HYSTERECTOMY KNEE REPLACEMENT Bilateral left x 2 LITHOTRIPSY multiple Patient Active Problem List Diagnosis S/P total hip arthroplasty Gout Aneurysm of ascending aorta without rupture Aneurysmal dilatation Closed fracture of hand Fracture of metacarpal bone Gastro-esophageal reflux disease without esophagitis Hypomagnesemia Lumbar spondylosis Mixed stress and urge urinary incontinence Morbid (severe) obesity due to excess calories Other disorders of plasma-protein metabolism, not elsewhere classified Pulmonary embolism Solitary kidney, acquired Thoracic aortic ectasia Unilateral primary osteoarthritis, left hip Unsteadiness on feet S/P total left hip arthroplasty Social History Socioeconomic History Marital status: Single Spouse name: Not on file Number of children: Not on file Years of education: Not on file Highest education level: Not on file Occupational History Not on file Tobacco Use Smoking status: Never Smokeless tobacco: Never Substance and Sexual Activity Alcohol use: Never Drug use: Never Sexual activity: Not on file Other Topics Concern Not on file Social History Narrative Not on file Social Determinants of Health Financial Resource Strain: Low Risk (01/21/2024) Overall Financial Resource Strain (CARDIA) Difficulty of Paying Living Expenses: Not very hard Food Insecurity: No Food Insecurity (01/21/2024) Hunger Vital Sign Worried About Running Out of Food in the Last Year: Never true Ran Out of Food in the Last Year: Never true Transportation Needs: No Transportation Needs (01/21/2024) PRAPARE - Transportation Lack of Transportation (Medical): No Lack of Transportation (Non-Medical): No Physical Activity: Not on file Stress: Not on file Social Connections: Not on file Intimate Partner Violence: Not At Risk (01/21/2024) Humiliation, Afraid, Rape, and Kick questionnaire Fear of Current or Ex-Partner: No Emotionally Abused: No Physically Abused: No Sexually Abused: No Housing Stability: Low Risk (01/21/2024) Housing Stability Vital Sign Unable to Pay for Housing in the Last Year: No Number of Places Lived in the Last Year: 1 Unstable Housing in the Last Year: No Current Facility-Administered Medications: Acetaminophen (TYLENOL) tablet 650 mg, 650 mg, Oral, Q4H PRN, Mohan Gomez MD, 650 mg at 02/05/24 0815 Allopurinol (ZYLOPRIM) tablet 100 mg, 100 mg, Oral, Daily, Mohan Gomez MD, 100 mg at 02/06/24 0843 apixaban (ELIQUIS) tablet 5 mg, 5 mg, Oral, Q12H, Mohan Gomez MD, 5 mg at 02/06/24 0843 bisacodyl (DULCOLAX) suppository 10 mg, 10 mg, Rectal, Daily PRN, Mohan Gomez MD Cyclobenzaprine (FLEXERIL) tablet 5 mg, 5 mg, Oral, Q12H, Mohan Gomez MD, 5 mg at 02/06/24 0843 Docusate (COLACE) capsule 100 mg, 100 mg, Oral, Q12H, Mohan Gomez MD, 100 mg at 02/06/24 0843 ferrous sulfate tablet 325 mg, 325 mg, Oral, Daily, Mohan Gmoez MD, 325 mg at 02/06/24 0843 hydroCODone-acetaminophen (NORCO) 5-325 MG per tablet 1 tablet, 1 tablet, Oral, Q4H PRN, Mohan Gomez MD, 1 tablet at 02/06/24 0312 hydroCODone-acetaminophen (NORCO) 5-325 MG per tablet 2 tablet, 2 tablet, Oral, Q4H PRN, Mohan Gomez MD, 2 tablet at 02/05/24 2324 lactulose (CHRONULAC) oral solution 20 g, 20 g, Oral, TID PRN, Mohan Gomez MD Lisinopril (PRINIVIL) tablet 5 mg, 5 mg, Oral, Daily, Mohan Gomez MD, 5 mg at 02/06/24 0843 multivitamin tablet 1 tablet, 1 tablet, Oral, Daily, Mohan Gomez MD, 1 tablet at 02/06/24 0843 nystatin (MYCOSTATIN) cream 1 Application, 1 Application, Topical, Q12H, Mohan Gomez MD, 1 Application at 02/06/24 0843 ondansetron (ZOFRAN-ODT) disintegrating tablet 4 mg, 4 mg, Oral, Q4H PRN, Mohan Gomez MD, 4 mg at 02/05/24 0923 Pantoprazole (PROTONIX) tablet DR 40 mg, 40 mg, Oral, Before BKF, Mohan Gomez MD, 40 mg at 02/06/24 0537 Polyethylene glycol (MIRALAX) packet 17 g, 17 g, Oral, Q12H, Mohan Gomez MD, 17 g at 02/06/24 0845 Polyethylene glycol (MIRALAX) packet 17 g, 17 g, Oral, TID PRN, Mohan Gomez MD Povidone-Iodine (PROFEND) 10 % swab 1 Application, 1 Application, Topical, QHS, Mohan Gomez MD, 1 Application at 02/06/24 0001 senna-docusate (SENOKOT-S) 8.6-50 MG per tablet 2 tablet, 2 tablet, Oral, Q12H, Mohan Gomez MD, 2 tablet at 02/06/24 0843 Tolterodine (DETROL-LA) capsule XL 4 mg, 4 mg, Oral, Daily, Mohan Gomez MD, 4 mg at 02/06/24 0844 Zolpidem (AMBIEN) tablet 5 mg, 5 mg, Oral, QHS PRN, Mohan Gomez MD, 5 mg at 02/05/24 2325 Allergies Allergen Reactions Morphine Nausea and Vomiting Other Reaction(s): GI intolerance Oxycodone Nausea and Vomiting Other Reaction(s): GI intolerance Penicillins Hives Vitals: 02/05/24 0750 02/05/24 1936 02/05/24199902/06/24 0728 BP: 153/74 106/57 Pulse: 57 87 Resp: 16 17 Temp: 98 degrees F (36.7 degrees C) 98.3 degrees F (36.8 degrees C) TempSrc: Oral Oral SpO2: 94% 94% 93% 93% Weight: Height: Intake/Output Summary (Last 24 hours) at 02/06/2024 0905 Last data filed at 02/06/2024 0312 Gross per 24 hour Intake 990 ml Output -- Net 990 ml Physical Exam: CONSTITUTIONAL: Alert and Oriented, in no distress, afebrile HEENT: Normocephalic and atraumatic, Sclera anicteric, PERRL, mild thrush improving, dry lips improving and no visualized HSV lesions CARDIAC: Normal rate, regular rhythm, normal heart sounds and intact distal pulses, no murmurs/rubs/clicks/gallops RESP: Effort normal and breath sounds are normal, but distant. No respiratory distress. No Wheezing/Rales/Cough, RA GI: Soft. Bowel sounds are normal. Nontender. Nondistended. Morbid obesity : No Suprapubic tenderness EXTREMITES: No cyanosis, clubbing; positive for history of left total knee arthroplasty. History of right total hip arthroplasty. Left total hip arthroplasty with incision with minimal erythema, overall improved, no pain, no drainage. Betadine is in place. Left greater than right lower extremity edema DERM: Skin is warm and dry. No rash noted MUSCULARSKELETAL: No septic arthritis noted NEUROLOGIC: Alert and communicative LAB RESULTS: WBC (WHITE BLOOD COUNT) Date/Time Value Ref Range Status 02/06/2024 04:53 AM 5.8 3.6 - 11.0 10*3/uL Final 02/05/2024 05:25 AM 5.0 3.6 - 11.0 10*3/uL Final 02/04/2024 05:25 AM 6.0 3.6 - 11.0 10*3/uL Final 02/03/2024 05:52 AM 6.3 3.6 - 11.0 10*3/uL Final 02/02/2024 05:14 AM 6.0 3.6 - 11.0 10*3/uL Final 02/01/2024 04:34 AM 5.8 3.6 - 11.0 10*3/uL Final 01/31/2024 06:12 AM 5.1 3.6 - 11.0 10*3/uL Final HEMOGLOBIN (HGB) Date/Time Value Ref Range Status 02/06/2024 04:53 AM 10.1 (L) 12.0 - 16.0 G/DL Final 02/05/2024 05:25 AM 10.4 (L) 12.0 - 16.0 G/DL Final 02/04/2024 05:25 AM 10.2 (L) 12.0 - 16.0 G/DL Final 02/03/2024 05:52 AM 10.7 (L) 12.0 - 16.0 G/DL Final 02/02/2024 05:14 AM 10.5 (L) 12.0 - 16.0 G/DL Final 02/01/2024 04:34 AM 10.6 (L) 12.0 - 16.0 G/DL Final 01/31/2024 06:12 AM 10.0 (L) 12.0 - 16.0 G/DL Final HEMATOCRIT (HCT) Date/Time Value Ref Range Status 02/06/2024 04:53 AM 29.6 (L) 36.0 - 48.0 % Final 02/05/2024 05:25 AM 30.8 (L) 36.0 - 48.0 % Final 02/04/2024 05:25 AM 30.0 (L) 36.0 - 48.0 % Final 02/03/2024 05:52 AM 31.8 (L) 36.0 - 48.0 % Final 02/02/2024 05:14 AM 31.1 (L) 36.0 - 48.0 % Final 02/01/2024 04:34 AM 31.4 (L) 36.0 - 48.0 % Final 01/31/2024 06:12 AM 29.3 (L) 36.0 - 48.0 % Final PLATELET COUNT Date/Time Value Ref Range Status 02/06/2024 04:53 AM 365 130 - 400 10*3/uL Final 02/05/2024 05:25 AM 378 130 - 400 10*3/uL Final 02/04/2024 05:25 AM 415 (H) 130 - 400 10*3/uL Final 02/03/2024 05:52 AM 472 (H) 130 - 400 10*3/uL Final 02/02/2024 05:14 AM 429 (H) 130 - 400 10*3/uL Final 02/01/2024 04:34 AM 479 (H) 130 - 400 10*3/uL Final 01/31/2024 06:12 AM 439 (H) 130 - 400 10*3/uL Final POTASSIUM Date/Time Value Ref Range Status 02/06/2024 04:53 AM 4.4 3.5 - 5.1 MMOL/L Final 02/05/2024 05:25 AM 4.3 3.5 - 5.1 MMOL/L Final 02/04/2024 05:25 AM 4.4 3.5 - 5.1 MMOL/L Final 02/03/2024 05:52 AM 4.4 3.5 - 5.1 MMOL/L Final 02/02/2024 05:14 AM 4.2 3.5 - 5.1 MMOL/L Final 02/01/2024 04:34 AM 4.4 3.5 - 5.1 MMOL/L Final 01/31/2024 06:12 AM 4.5 3.5 - 5.1 MMOL/L Final CHLORIDE Date/Time Value Ref Range Status 02/06/2024 04:53 AM 104 98 - 107 MMOL/L Final Comment: Please note: Triglyceride levels of 600mg/dL or higher may positively bias chloride results by approximately 2.1 mmol 02/05/2024 05:25 AM 104 98 - 107 MMOL/L Final Comment: Please note: Triglyceride levels of 600mg/dL or higher may positively bias chloride results by approximately 2.1 mmol 02/04/2024 05:25 AM 104 98 - 107 MMOL/L Final Comment: Please note: Triglyceride levels of 600mg/dL or higher may positively bias chloride results by approximately 2.1 mmol 02/03/2024 05:52 AM 104 98 - 107 MMOL/L Final Comment: Please note: Triglyceride levels of 600mg/dL or higher may positively bias chloride results by approximately 2.1 mmol 02/02/2024 05:14 AM 103 98 - 107 MMOL/L Final Comment: Please note: Triglyceride levels of 600mg/dL or higher may positively bias chloride results by approximately 2.1 mmol 02/01/2024 04:34 AM 103 98 - 107 MMOL/L Final Comment: Please note: Triglyceride levels of 600mg/dL or higher may positively bias chloride results by approximately 2.1 mmol 01/31/2024 06:12 AM 102 98 - 107 MMOL/L Final Comment: Please note: Triglyceride levels of 600mg/dL or higher may positively bias chloride results by approximately 2.1 mmol CARBON DIOXIDE (CO2) Date/Time Value Ref Range Status 02/06/2024 04:53 AM 29 22 - 30 MMOL/L Final 02/05/2024 05:25 AM 30 22 - 30 MMOL/L Final 02/04/2024 05:25 AM 31 (H) 22 - 30 MMOL/L Final 02/03/2024 05:52 AM 29 22 - 30 MMOL/L Final 02/02/2024 05:14 AM 30 22 - 30 MMOL/L Final 02/01/2024 04:34 AM 28 22 - 30 MMOL/L Final 01/31/2024 06:12 AM 33 (H) 22 - 30 MMOL/L Final Glucose Date/Time Value Ref Range Status 02/06/2024 04:53 AM 100 70 - 100 MG/DL Final Comment: NORMAL <100 mg/dL PREDIABETES 101-126 mg/dL DIABETES 126 mg/dL or higher 02/05/2024 05:25 AM 101 (H) 70 - 100 MG/DL Final Comment: NORMAL <100 mg/dL PREDIABETES 101-126 mg/dL DIABETES 126 mg/dL or higher 02/04/2024 05:25 AM 96 70 - 100 MG/DL Final Comment: NORMAL <100 mg/dL PREDIABETES 101-126 mg/dL DIABETES 126 mg/dL or higher 02/03/2024 05:52 AM 100 70 - 100 MG/DL Final Comment: NORMAL <100 mg/dL PREDIABETES 101-126 mg/dL DIABETES 126 mg/dL or higher 02/02/2024 05:14 AM 103 (H) 70 - 100 MG/DL Final Comment: NORMAL <100 mg/dL PREDIABETES 101-126 mg/dL DIABETES 126 mg/dL or higher 02/01/2024 04:34 AM 98 70 - 100 MG/DL Final Comment: NORMAL <100 mg/dL PREDIABETES 101-126 mg/dL DIABETES 126 mg/dL or higher 01/31/2024 06:12 AM 94 70 - 100 MG/DL Final Comment: NORMAL <100 mg/dL PREDIABETES 101-126 mg/dL DIABETES 126 mg/dL or higher BUN Date/Time Value Ref Range Status 02/06/2024 04:53 AM 17 7 - 20 MG/DL Final 02/05/2024 05:25 AM 14 7 - 20 MG/DL Final 02/04/2024 05:25 AM 18 7 - 20 MG/DL Final 02/03/2024 05:52 AM 17 7 - 20 MG/DL Final 02/02/2024 05:14 AM 18 7 - 20 MG/DL Final 02/01/2024 04:34 AM 14 7 - 20 MG/DL Final 01/31/2024 06:12 AM 12 7 - 20 MG/DL Final CREATININE SERUM Date/Time Value Ref Range Status 02/06/2024 04:53 AM 0.80 0.7 - 1.2 MG/DL Final 02/05/2024 05:25 AM 0.80 0.7 - 1.2 MG/DL Final 02/04/2024 05:25 AM 0.80 0.7 - 1.2 MG/DL Final 02/03/2024 05:52 AM 0.90 0.7 - 1.2 MG/DL Final 02/02/2024 05:14 AM 0.90 0.7 - 1.2 MG/DL Final 02/01/2024 04:34 AM 0.90 0.7 - 1.2 MG/DL Final 01/31/2024 06:12 AM 1.10 0.7 - 1.2 MG/DL Final Albumin Date/Time Value Ref Range Status 01/31/2024 06:12 AM 3.0 (L) 3.5 - 5.0 G/DL Final 01/23/2024 04:37 AM 2.6 (L) 3.5 - 5.0 G/DL Final 01/17/2024 04:31 AM 2.6 (L) 3.5 - 5.0 G/dl Final 12/16/2023 12:35 PM 4.0 3.5 - 5.0 G/dl Final CALCIUM Date/Time Value Ref Range Status 02/06/2024 04:53 AM 8.6 8.4 - 10.2 MG/DL Final 02/05/2024 05:25 AM 8.8 8.4 - 10.2 MG/DL Final 02/04/2024 05:25 AM 8.8 8.4 - 10.2 MG/DL Final 02/03/2024 05:52 AM 9.1 8.4 - 10.2 MG/DL Final 02/02/2024 05:14 AM 8.9 8.4 - 10.2 MG/DL Final 02/01/2024 04:34 AM 8.9 8.4 - 10.2 MG/DL Final 01/31/2024 06:12 AM 8.7 8.4 - 10.2 MG/DL Final ALKALINE PHOSPHATASE Date/Time Value Ref Range Status 01/31/2024 06:12 AM 107 38 - 126 IU/L Final 01/23/2024 04:37 AM 99 38 - 126 IU/L Final 12/16/2023 12:35 PM 89 38 - 126 IU/L Final AST Date/Time Value Ref Range Status 01/31/2024 06:12 AM 26 14 - 36 IU/L Final 01/23/2024 04:37 AM 25 14 - 36 IU/L Final 12/16/2023 12:35 PM 25 14 - 36 IU/L Final BILIRUBIN, TOTAL Date/Time Value Ref Range Status 01/31/2024 06:12 AM 0.2 0.2 - 1.3 MG/DL Final 01/23/2024 04:37 AM 0.3 0.2 - 1.3 MG/DL Final 12/16/2023 12:35 PM 0.3 0.2 - 1.3 MG/DL Final ANION GAP Date/Time Value Ref Range Status 02/06/2024 04:53 AM 2 (L) 8 - 16 MMOL/L Final 02/05/2024 05:25 AM 1 (L) 8 - 16 MMOL/L Final 02/04/2024 05:25 AM 1 (L) 8 - 16 MMOL/L Final 02/03/2024 05:52 AM 2 (L) 8 - 16 MMOL/L Final 02/02/2024 05:14 AM 1 (L) 8 - 16 MMOL/L Final 02/01/2024 04:34 AM 2 (L) 8 - 16 MMOL/L Final 01/31/2024 06:12 AM NEG 1 8 - 16 MMOL/L Final ALT Date/Time Value Ref Range Status 01/31/2024 06:12 AM 13 <35 IU/L Final 01/23/2024 04:37 AM 10 <35 IU/L Final 12/16/2023 12:35 PM 16 <35 IU/L Final ESTIMATED GFR, NON AMER Date/Time Value Ref Range Status 02/06/2024 04:53 AM 73 ml/min/1.73sq.m Final 02/05/2024 05:25 AM 73 ml/min/1.73sq.m Final 02/04/2024 05:25 AM 73 ml/min/1.73sq.m Final 02/03/2024 05:52 AM 64 ml/min/1.73sq.m Final 02/02/2024 05:14 AM 64 ml/min/1.73sq.m Final 02/01/2024 04:34 AM 64 ml/min/1.73sq.m Final 01/31/2024 06:12 AM 51 ml/min/1.73sq.m Final ESTIMATED GFR, Date/Time Value Ref Range Status 02/06/2024 04:53 AM 89 ml/min/1.73sq.m Final 02/05/2024 05:25 AM 89 ml/min/1.73sq.m Final 02/04/2024 05:25 AM 89 ml/min/1.73sq.m Final 02/03/2024 05:52 AM 77 ml/min/1.73sq.m Final 02/02/2024 05:14 AM 77 ml/min/1.73sq.m Final 02/01/2024 04:34 AM 77 ml/min/1.73sq.m Final 01/31/2024 06:12 AM 61 ml/min/1.73sq.m Final GFR COMMENT Date/Time Value Ref Range Status 02/06/2024 04:53 AM Average GFR for 70+ years old = 75. Final Comment: Chronic Kidney disease, GFR = <60. Kidney failure, GFR = <15. The GFR estimate is not adjusted for extreme body surface area or acute process, nor has it been validated for women or ethnic groups other than and . CBC Lab Results Component Value Date WBC 5.8 02/06/2024 HGB 10.1 (L) 02/06/2024 HCT 29.6 (L) 02/06/2024 PLATELET 365 02/06/2024 MCV 95.7 02/06/2024 EDIF Lab Results Component Value Date RBCDISTRIBU 15.2 (H) 02/06/2024 EOSINOPHILS 2.8 02/06/2024 EOSINOPHILS 0.2 02/06/2024 BASOPHILS 0.8 02/06/2024 BASOPHILS 0.0 02/06/2024 LYMPHOCYTABS 1.5 02/06/2024 PLATELET 365 02/06/2024 MPV 6.7 (L) 02/06/2024 Lab Results Component Value Date SODIUM 135 (L) 02/06/2024 POTASSIUM 4.4 02/06/2024 CHLORIDE 104 02/06/2024 CO2 29 02/06/2024 BUN 17 02/06/2024 CREATSERUM 0.80 02/06/2024 GLUCOSE 100 02/06/2024 Micro C difficile stool 01/23- Urine culture 01/20- 01/20 Nares - 12/16/2023 positive nares test for MSSA 12/15 urine test positive for Klebsiella only resistant to ampicillin and Macrobid XR CHEST 1 VIEW PORTABLE Final Result IMPRESSION: 1. Cardiomegaly. 2. Aortic tortuosity. 3. Minor effusion in the left lung base is suspected. 4. Both lungs are expanded. I am not seeing any obvious displaced fracture although detail is limited. There are accentuated interstitial markings which may well be chronic. ASSESSMENT AND PLAN . Cuate Goodman 83 y.o. with a history of multiple medical problems including DVT/PE, morbid obesity, degenerative joint disease presents with left hip pain undergoing left total hip arthroplasty on 01/10 showing degenerative changes Left total hip arthroplasty, concern for superficial wound infection -history of development of erythema around the incision site on 01/18 or 01/19 without systemic signs of infection -No drainage for wound cx -perioperative nares culture was positive for MSSA, repeat culture 01/20 negative -antibiotic therapy will be given especially in the setting of underlying hardware in the postop period to try to prevent any spread of superficial infection to deeper areas of hardware and this was discussed with her and all questions answered -s/p zyvox 01/20-01/26 -s/p Septra 01/26-01/29 -s/p mupirocin twice daily, 01/22-01/26 -recommend avoiding any rubbing of the undergarments, discussed with nursing -status post 10 day course of antibiotics, discontinued on 01/29. -overall slowly healing without clear evidence of infection -Betadine paint to Wound incision per orthopedics -x-ray shows good position of hardware History of Klebsiella positive urine culture -urinalysis 12/15 with too numerous to count white cells and +3 bacteria -history of Klebsiella positive urine culture in November of 2023 only resistant to ampicillin and Macrobid -patient denies any urinary symptoms and UA bland, culture 01/20 negative Inflammatory markers -check Trends -CRP 58, 42, 46, 33, 28, 28, 30, 28, 25, 27, 26, 26, 21, 21, 21, 22 -ESR 71 -CRP stable Anemia -hemoglobin 9.5, 10.7, 10, 10.1, 10.1, 9.8, 10.3, 10.6, 10, 10.3, 10, 10.6, 10.5, 10.7, 10.2, 10.4, 10.1 -previous anemia workup in November of 2022 was negative with normal iron, B12 and folate studies -Fe 37 -hemoglobin stable History of Thrombocytosis -platelets 440, 438, 470, 438, 466, 439, 479, 429, 472, 415, 378, 365 -normalized Healthcare maintenance -hemoglobin A1c normal at 5.7 on 12/15 History of DVT/PE -anticoagulation per primary team Disposition -ongoing PT/OT Diarrhea, history -C diff testing and GI pathogen panel negative -probiotic prescribed. -suspicious for a viral process -Resolved Nausea/poor appetite -lipase, LFTs were not abnormal 01/30 -pre albumin low at 11.9 -encourage p.o. intake, protein shakes -Improving especially when outside food is brought in per history Posterior thigh wounds -wound care consulted -Offloading Janet Moreno MD DAILY PROGRESS NOTE Admit Date: 01/19/2024 Date of Evaluation: 0:47 PM [facility] Hospital LOS: 17 days IMPRESSION AND PLAN: 83 y.o. 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 1) Severe left hip arthritis s/p total hip arthroplasty PT/OT Continue with eliquis Continue with flexeril Continue with norco PRN Continue with senokot PRN Continue with tramadol PRN Encourage compliance with PT/OT. Persistent weakness noted. 2) Chronic normocytic anemia H and H 9.8 -> 9.5 -> 10.7 -> 10.0 -> 10.1 -> 9.8 -> 10.3 -> 10.6 -> 10.0 -> 10.3 -> 10.0 -> 10.6 -> 10.5 -> 10.7 -> 10.4 and 29.2 -> 27.7 -> 31.8 -> 29.1 -> 29.3 -> 29.4 -> 29.0 -> 30.7 -> 31.3 -> >29.3 -> 29.9 -> 29.3 -> 31.4 -> 31.1 -> 31.8 -> 30.8 Fe 29, TIBC 144, transferrin 20 Continue with iron Serial CBC 3) Gout Currently on allopurinol 4) GERD Currently on protonix. 5) Diarrhea Probably viral C. Diff is negative GI panel is negative. Workup is negative to-date Supportive care. Monitor for hypotension Monitor for hypokalemia Improved. 6) Cellulitis Antibiotic therapy will be given especially in the setting of underlying hardware in the postop period to try to prevent any spread of superficial infection to deeper areas of hardware CRP 58.3 -> 33.6 -> 28.4 -> 30.5 -> 28.9 -> 25.8 -> 26.1 -> 21.4-> 26.3 -> 21.9, stable. Finished a course of linezolid Finished a course of bactrobran Finished a course of bactrim DS BID. Continue with nystatin cream Encourage PO intake. Followed by ID 7) HTN SBP 120/90s Continue with lisinopril. 8) Mild oral thrush Nystatin swish and swallow, continue symptomatic treatment of lip dryness 9) Urinary incontinence UA is bland. Supportive care SUBJECTIVE: Patient seen and examined. Chart, medications, labs reviewed. Office Visit on 02/02/2024 Component Date Value Ref Range Status BSA 02/02/2024 2.18 m2 In process LABS Labs-ABGs Labs-CBC @CBCBRIEFROUNDS@ Labs-Chem 7([facility]) Bun/Creat/Cl/CO2/Glucose: 14/0.80/104/30/101 (02/04 525) Na/K+/Phos/Mg/Ca: 135/4.3/--/--/8.8 (02/04 525) Labs-Coags WBC (WHITE BLOOD COUNT) Date Value Ref Range Status 02/05/2024 5.0 3.6 - 11.0 10*3/uL Final 02/04/2024 6.0 3.6 - 11.0 10*3/uL Final 02/03/2024 6.3 3.6 - 11.0 10*3/uL Final HEMOGLOBIN (HGB) Date Value Ref Range Status 02/05/2024 10.4 (L) 12.0 - 16.0 G/DL Final 02/04/2024 10.2 (L) 12.0 - 16.0 G/DL Final 02/03/2024 10.7 (L) 12.0 - 16.0 G/DL Final HEMATOCRIT (HCT) Date Value Ref Range Status 02/05/2024 30.8 (L) 36.0 - 48.0 % Final 02/04/2024 30.0 (L) 36.0 - 48.0 % Final 02/03/2024 31.8 (L) 36.0 - 48.0 % Final PLATELET COUNT Date Value Ref Range Status 02/05/2024 378 130 - 400 10*3/uL Final 02/04/2024 415 (H) 130 - 400 10*3/uL Final 02/03/2024 472 (H) 130 - 400 10*3/uL Final SODIUM Date Value Ref Range Status 02/05/2024 135 (L) 137 - 145 MMOL/L Final 02/04/2024 136 (L) 137 - 145 MMOL/L Final 02/03/2024 135 (L) 137 - 145 MMOL/L Final CHLORIDE Date Value Ref Range Status 02/05/2024 104 98 - 107 MMOL/L Final Comment: Please note: Triglyceride levels of 600mg/dL or higher may positively bias chloride results by approximately 2.1 mmol 02/04/2024 104 98 - 107 MMOL/L Final Comment: Please note: Triglyceride levels of 600mg/dL or higher may positively bias chloride results by approximately 2.1 mmol 02/03/2024 104 98 - 107 MMOL/L Final Comment: Please note: Triglyceride levels of 600mg/dL or higher may positively bias chloride results by approximately 2.1 mmol BUN Date Value Ref Range Status 02/05/2024 14 7 - 20 MG/DL Final 02/04/2024 18 7 - 20 MG/DL Final 02/03/2024 17 7 - 20 MG/DL Final POTASSIUM Date Value Ref Range Status 02/05/2024 4.3 3.5 - 5.1 MMOL/L Final 02/04/2024 4.4 3.5 - 5.1 MMOL/L Final 02/03/2024 4.4 3.5 - 5.1 MMOL/L Final CREATININE SERUM Date Value Ref Range Status 02/05/2024 0.80 0.7 - 1.2 MG/DL Final 02/04/2024 0.80 0.7 - 1.2 MG/DL Final 02/03/2024 0.90 0.7 - 1.2 MG/DL Final Glucose Date Value Ref Range Status 02/05/2024 101 (H) 70 - 100 MG/DL Final Comment: NORMAL <100 mg/dL PREDIABETES 101-126 mg/dL DIABETES 126 mg/dL or higher 02/04/2024 96 70 - 100 MG/DL Final Comment: NORMAL <100 mg/dL PREDIABETES 101-126 mg/dL DIABETES 126 mg/dL or higher 02/03/2024 100 70 - 100 MG/DL Final Comment: NORMAL <100 mg/dL PREDIABETES 101-126 mg/dL DIABETES 126 mg/dL or higher PT Date Value Ref Range Status 01/11/2024 14.2 11.8 - 14.4 SEC Final 12/16/2023 17.9 (H) 11.8 - 14.4 SEC Final PROTEIN, TOTAL Date Value Ref Range Status 01/31/2024 6.1 (L) 6.3 - 8.2 GM/DL Final 01/23/2024 5.6 (L) 6.3 - 8.2 GM/DL Final 12/16/2023 7.2 6.3 - 8.2 GM/DL Final Albumin Date Value Ref Range Status 01/31/2024 3.0 (L) 3.5 - 5.0 G/DL Final 01/23/2024 2.6 (L) 3.5 - 5.0 G/DL Final 01/17/2024 2.6 (L) 3.5 - 5.0 G/dl Final AST Date Value Ref Range Status 01/31/2024 26 14 - 36 IU/L Final 01/23/2024 25 14 - 36 IU/L Final 12/16/2023 25 14 - 36 IU/L Final ALT Date Value Ref Range Status 01/31/2024 13 <35 IU/L Final 01/23/2024 10 <35 IU/L Final 12/16/2023 16 <35 IU/L Final BILIRUBIN, TOTAL Date Value Ref Range Status 01/31/2024 0.2 0.2 - 1.3 MG/DL Final CALCIUM Date Value Ref Range Status 02/05/2024 8.8 8.4 - 10.2 MG/DL Final 02/04/2024 8.8 8.4 - 10.2 MG/DL Final 02/03/2024 9.1 8.4 - 10.2 MG/DL Final PHOSPHORUS Date Value Ref Range Status 01/17/2024 2.6 2.5 - 4.5 MG/DL Final Lab Results Component Value Date CREATSERUM 0.80 02/05/2024 BUN 14 02/05/2024 SODIUM 135 (L) 02/05/2024 POTASSIUM 4.3 02/05/2024 CHLORIDE 104 02/05/2024 CO2 30 02/05/2024 ROS: Constitution: No fever, no chill HEENT: No headache, no sinus issues CV: No chest pain, no palpitation Lung: No cough, No SOB Abd: No diarrhea, no constipation Neuro: No seizure, no loss of consciousness Heme: No bleeding, no bruise PHYSICAL EXAM: Wt Readings from Last 3 Encounters: 02/05/24 108.6 kg (239 lb 8 oz) 02/02/24 109.3 kg (241 lb) 12/08/23 103 kg (227 lb) Temp Readings from Last 3 Encounters: 02/05/24 98 F (36.7 C) (Oral) 02/02/24 98.8 F (37.1 C) (Temporal) 01/19/24 98.2 F (36.8 C) (Temporal) BP Readings from Last 3 Encounters: 02/05/24 153/74 01/19/24 137/62 12/16/23 135/89 Pulse Readings from Last 3 Encounters: 02/05/24 57 01/19/24 89 12/16/23 73 Gen: NAD, lying in bed, conversant HEENT: Atraumatic, PERRLA, moist membrane CV: RRR, nl S1 and S2, no m/g/r Lung: CTAB, no wheezing, no crackle Abd: +BS, nontender, no distended Ext: No rash, no clubbing, no cyanosis. No edema. Neuro: CNII-XII grossly intact, 5/5 strength, normal tone Skin: Warm and dry 02/05/24 1054 Time In/Out Time In 1054 Time Out 1118 Total Visit Time 24 minutes Subjective Subjective Reports Pt agreeable to OT on second attempt. First attempt pt reported nausea and vomiting. Nursing aware and addressed. Transfer Skill: Sit To Stand, Rehab Eval [place] (Sit-Stand Transfers) contact guard Physical Assist/Nonphysical Assist: Sit/Stand verbal cues;supervision Transfer Skill: Toilet Transfer, Rehab Eval Assistive Device grab bars;2 wheeled walker Grooming [place] Level (Grooming) grooming skills;hair care, combing/brushing;wash face, hands;contact guard assist (CGA while standing at sink with mod cues to facilitate TTWB.) Physical Assist/Nonphysical Assist supervision;verbal cues Lower Body Dressing Level of [place] contact guard Physical Assist/Nonphysical Assist supervision;verbal cues Assistive Device group care worker Toileting Level of [place] contact guard Physical Assist/Nonphysical Assist supervision;verbal cues Pt required extra time for task completion on this date. Pt would benefit from further training to ensure TTWB is maintained throughout ADLs/functional mobility. All needs met prior to exiting. Radha Serna PRAKASH/L 02/05/24 1119 Physical Therapy Minutes Start Time 1119 Stop Time 1136 Time Calculation 17 PT Individual Minutes 17 minutes General Pain Documentation (Adult, OB, Peds) Presence of Pain denies pain/discomfort Presence of Pain Score (Auto-calculated) 0 Pt finishing with PRAKASH when this INVASIVE CARDIOVASCULAR TECHNOLOGIST arrived; INVASIVE CARDIOVASCULAR TECHNOLOGIST observed pt being increasingly rude and aggravated with PRAKASH; pt asked if she needed a break or if she was willing to work with this INVASIVE CARDIOVASCULAR TECHNOLOGIST pt stated No! I guess Ill do it now and get it over with but I'm not doing anything that I dont have to; dont ask me to do extra ; therapist asked pt to assist with moving BLE for supine to sit transfer; pt refused to assist and demanded INVASIVE CARDIOVASCULAR TECHNOLOGIST to move BLE; therapist provided max assist x2 for supine to sit transfer; pt stated that she would not help because she does not lay in a bed at home and will not do anything that she doesn't have to do; therapist provided CGA-SBA for sit to stand from EOB to WW; therapist provided CGA and verbal cues for pt to maintain TTWB precaution to ambulate [id number] with WC follow; pt was observed putting foot flat on ground and visually looked to be exerting more force through LLE than TTWB; pt stated that she puts the force needed to walk and that is what she has been doing and that is what she will continue to do because its what she has to and it does not hurt; this therapist educated pt on what TTWB means and the amount of pressure that should be put through the affected leg ; pt verbalized understanding and stated that she would be continuing to walk how she is; therapist provided min assist for sit to stand transfer from WC and SBA with WW for SPT to room chair; pt asked to participate in seated therex and pt declined all other interventions this date; pt seated comfortably in room chair with legs elevated and ice applied to L hip Rianna Phillips PTA Infectious Disease progress note SUBJECTIVE History of Present Illness: Cuate Goodman 83 y.o. female with a history of left degenerative hip disease with ongoing left hip pain with reported decreased quality of life due to this condition. The patient was seen by Orthopedics and Dr. Heredia performed surgery 01/10 with a left total hip arthroplasty. Total hip arthroplastic surgery on 01/10 did not have noted complications or infectious issues per chart review. The patient was subsequently discharged after an admission from 01/10-01/18 on the med surg unit without stated ID issue. There was no antibiotics at time of discharge. Pathology from knee replacement surgery showed consistent with degenerative joint disease without mention of infection. Has history of previous right total hip arthroplasty and left total knee arthroplasty noted. Past medical history also includes obesity, degenerative joint disease and history of DVT and PE. Additional history includes right bundle-branch block, diastolic dysfunction, B12 deficiency, impaired fasting glucose with normal preoperative A1c, elevated uric acid level, GERD, urinary incontinence, history of abdominal aortic aneurysm. Patient does have a history of penicillin allergy resulting in hives but no other allergies to antibiotics noted. The patient denies any tobacco, alcohol or drug use. No prior use reported. Patient was subsequently admitted swing bed for rehabilitation on 01/18. Patient underwent pain control, PT/OT and ongoing medical management. Patient was noted to have erythema that began around her left hip site approximately on 01/18 or 01/19 per nursing report. There has been no described drainage from her hip. Patient denies any specific areas pain in her hip joint. There is no reported fevers or chills or night sweats at time of initial consultation. The patient denies any new respiratory, abdominal or urinary symptoms. Specifically she denies any UTI symptoms Infectious disease consult 01/21/2024, patient began on Zyvox for superficial postop infection, Interval events: 24 hour events reviewed. No fevers. Betadine to leg ongoing. No new symptoms on ROS. Eating better per her report. But she still states she but still reports low appetite ROS A complete review of systems are negative except those consistent with HPI OBJECTIVE Past Medical History: Diagnosis Date Aortic aneurysm Arthritis Deep vein thrombosis (DVT) GERD (gastroesophageal reflux disease) Past Medical History: Diagnosis Date Aortic aneurysm Arthritis Deep vein thrombosis (DVT) GERD (gastroesophageal reflux disease) Past Surgical History: Procedure Laterality Date ARTHROPLASTY HIP TOTAL Left 01/11/2024 Laterality: Left; Surgeon: Erik Heredia MD; Location: [facility] OR NEPHRECTOMY Right 1978 CHOLECYSTECTOMY HIP REPLACEMENT Right HYSTERECTOMY KNEE REPLACEMENT Bilateral left x 2 LITHOTRIPSY multiple Patient Active Problem List Diagnosis S/P total hip arthroplasty Gout Aneurysm of ascending aorta without rupture Aneurysmal dilatation Closed fracture of hand Fracture of metacarpal bone Gastro-esophageal reflux disease without esophagitis Hypomagnesemia Lumbar spondylosis Mixed stress and urge urinary incontinence Morbid (severe) obesity due to excess calories Other disorders of plasma-protein metabolism, not elsewhere classified Pulmonary embolism Solitary kidney, acquired Thoracic aortic ectasia Unilateral primary osteoarthritis, left hip Unsteadiness on feet S/P total left hip arthroplasty Social History Socioeconomic History Marital status: Single Spouse name: Not on file Number of children: Not on file Years of education: Not on file Highest education level: Not on file Occupational History Not on file Tobacco Use Smoking status: Never Smokeless tobacco: Never Substance and Sexual Activity Alcohol use: Never Drug use: Never Sexual activity: Not on file Other Topics Concern Not on file Social History Narrative Not on file Social Determinants of Health Financial Resource Strain: Low Risk (01/21/2024) Overall Financial Resource Strain (CARDIA) Difficulty of Paying Living Expenses: Not very hard Food Insecurity: No Food Insecurity (01/21/2024) Hunger Vital Sign Worried About Running Out of Food in the Last Year: Never true Ran Out of Food in the Last Year: Never true Transportation Needs: No Transportation Needs (01/21/2024) PRAPARE - Transportation Lack of Transportation (Medical): No Lack of Transportation (Non-Medical): No Physical Activity: Not on file Stress: Not on file Social Connections: Not on file Intimate Partner Violence: Not At Risk (01/21/2024) Humiliation, Afraid, Rape, and Kick questionnaire Fear of Current or Ex-Partner: No Emotionally Abused: No Physically Abused: No Sexually Abused: No Housing Stability: Low Risk (01/21/2024) Housing Stability Vital Sign Unable to Pay for Housing in the Last Year: No Number of Places Lived in the Last Year: 1 Unstable Housing in the Last Year: No Current Facility-Administered Medications: Acetaminophen (TYLENOL) tablet 650 mg, 650 mg, Oral, Q4H PRN, Mohan Gomez MD, 650 mg at 02/05/24 0815 Allopurinol (ZYLOPRIM) tablet 100 mg, 100 mg, Oral, Daily, Mohan Gomez MD, 100 mg at 02/05/24 1023 apixaban (ELIQUIS) tablet 5 mg, 5 mg, Oral, Q12H, Mohan Gmoez MD, 5 mg at 02/05/24 1023 bisacodyl (DULCOLAX) suppository 10 mg, 10 mg, Rectal, Daily PRN, Mohan Gomez MD Cyclobenzaprine (FLEXERIL) tablet 5 mg, 5 mg, Oral, Q12H, Mohan Gomez MD, 5 mg at 02/05/24 1021 Docusate (COLACE) capsule 100 mg, 100 mg, Oral, Q12H, Mohan Gomez MD, 100 mg at 02/05/24 1021 ferrous sulfate tablet 325 mg, 325 mg, Oral, Daily, Mohan Gomez MD, 325 mg at 02/05/24 1022 hydroCODone-acetaminophen (NORCO) 5-325 MG per tablet 1 tablet, 1 tablet, Oral, Q4H PRN, Mohan Gomez MD, 1 tablet at 02/05/24 1518 hydroCODone-acetaminophen (NORCO) 5-325 MG per tablet 2 tablet, 2 tablet, Oral, Q4H PRN, Mohan Gomez MD, 2 tablet at 02/04/24 2241 lactulose (CHRONULAC) oral solution 20 g, 20 g, Oral, TID PRN, Mohan Gomez MD Lisinopril (PRINIVIL) tablet 5 mg, 5 mg, Oral, Daily, Mohan Gomez MD, 5 mg at 02/05/24 1023 multivitamin tablet 1 tablet, 1 tablet, Oral, Daily, Mohan Gomez MD, 1 tablet at 02/05/24 1022 nystatin (MYCOSTATIN) cream 1 Application, 1 Application, Topical, Q12H, Mohan Gomez MD, 1 Application at 02/05/24 1025 ondansetron (ZOFRAN-ODT) disintegrating tablet 4 mg, 4 mg, Oral, Q4H PRN, Mohan Gomez MD, 4 mg at 02/05/24 0923 [START ON 02/06/2024] Pantoprazole (PROTONIX) tablet DR 40 mg, 40 mg, Oral, Before BKF, Mohan Gomez MD Polyethylene glycol (MIRALAX) packet 17 g, 17 g, Oral, Q12H, Mohan Gomez MD, 17 g at 02/04/242104 Polyethylene glycol (MIRALAX) packet 17 g, 17 g, Oral, TID PRN, Mohan Gomez MD Povidone-Iodine (PROFEND) 10 % swab 1 Application, 1 Application, Topical, QHS, Mohan Gomez MD, 1 Application at 02/04/242111 senna-docusate (SENOKOT-S) 8.6-50 MG per tablet 2 tablet, 2 tablet, Oral, Q12H, Mohan Gomez MD, 2 tablet at 02/02/242041 Tolterodine (DETROL-LA) capsule XL 4 mg, 4 mg, Oral, Daily, Mohan Gomez MD, 4 mg at 02/05/24 102 Zolpidem (AMBIEN) tablet 5 mg, 5 mg, Oral, QHS PRN, Mohan Gomez MD, 5 mg at 02/04/24 2240 Allergies Allergen Reactions Morphine Nausea and Vomiting Other Reaction(s): GI intolerance Oxycodone Nausea and Vomiting Other Reaction(s): GI intolerance Penicillins Hives Vitals: 02/04/24 1949 02/05/24 0420 02/05/24 0718 02/05/24 0750 BP: 107/69 127/69 Pulse: 99 63 Resp: 18 17 Temp: 97.8 degrees F (36.6 degrees C) 98.3 degrees F (36.8 degrees C) TempSrc: Oral Oral SpO2: 92% 95% 94% Weight: 108.6 kg (239 lb 8 oz) Height: Intake/Output Summary (Last 24 hours) at 02/05/2024 1743 Last data filed at 02/05/2024 1300 Gross per 24 hour Intake 560 ml Output -- Net 560 ml Physical Exam: CONSTITUTIONAL: Alert and Oriented, in no distress, afebrile HEENT: Normocephalic and atraumatic, Sclera anicteric, PERRL, mild thrush improving, dry lips improving and no visualized HSV lesions CARDIAC: Normal rate, regular rhythm, normal heart sounds and intact distal pulses, no murmurs/rubs/clicks/gallops RESP: Effort normal and breath sounds are normal, but distant. No respiratory distress. No Wheezing/Rales/Cough, RA GI: Soft. Bowel sounds are normal. Nontender. Nondistended. Morbid obesity : No Suprapubic tenderness EXTREMITES: No cyanosis, clubbing; positive for history of left total knee arthroplasty. History of right total hip arthroplasty. Left total hip arthroplasty with incision with minimal erythema, overall improved, no pain, no drainage. Left greater than right lower extremity edema DERM: Skin is warm and dry. No rash noted MUSCULARSKELETAL: No septic arthritis noted NEUROLOGIC: Alert and communicative LAB RESULTS: WBC (WHITE BLOOD COUNT) Date/Time Value Ref Range Status 02/05/2024 05:25 AM 5.0 3.6 - 11.0 10*3/uL Final 02/04/2024 05:25 AM 6.0 3.6 - 11.0 10*3/uL Final 02/03/2024 05:52 AM 6.3 3.6 - 11.0 10*3/uL Final 02/02/2024 05:14 AM 6.0 3.6 - 11.0 10*3/uL Final 02/01/2024 04:34 AM 5.8 3.6 - 11.0 10*3/uL Final 01/31/2024 06:12 AM 5.1 3.6 - 11.0 10*3/uL Final 01/30/2024 04:15 AM 5.3 3.6 - 11.0 10*3/uL Final HEMOGLOBIN (HGB) Date/Time Value Ref Range Status 02/05/2024 05:25 AM 10.4 (L) 12.0 - 16.0 G/DL Final 02/04/2024 05:25 AM 10.2 (L) 12.0 - 16.0 G/DL Final 02/03/2024 05:52 AM 10.7 (L) 12.0 - 16.0 G/DL Final 02/02/2024 05:14 AM 10.5 (L) 12.0 - 16.0 G/DL Final 02/01/2024 04:34 AM 10.6 (L) 12.0 - 16.0 G/DL Final 01/31/2024 06:12 AM 10.0 (L) 12.0 - 16.0 G/DL Final 01/30/2024 04:15 AM 10.3 (L) 12.0 - 16.0 G/DL Final HEMATOCRIT (HCT) Date/Time Value Ref Range Status 02/05/2024 05:25 AM 30.8 (L) 36.0 - 48.0 % Final 02/04/2024 05:25 AM 30.0 (L) 36.0 - 48.0 % Final 02/03/2024 05:52 AM 31.8 (L) 36.0 - 48.0 % Final 02/02/2024 05:14 AM 31.1 (L) 36.0 - 48.0 % Final 02/01/2024 04:34 AM 31.4 (L) 36.0 - 48.0 % Final 01/31/2024 06:12 AM 29.3 (L) 36.0 - 48.0 % Final 01/30/2024 04:15 AM 29.9 (L) 36.0 - 48.0 % Final PLATELET COUNT Date/Time Value Ref Range Status 02/05/2024 05:25 AM 378 130 - 400 10*3/uL Final 02/04/2024 05:25 AM 415 (H) 130 - 400 10*3/uL Final 02/03/2024 05:52 AM 472 (H) 130 - 400 10*3/uL Final 02/02/2024 05:14 AM 429 (H) 130 - 400 10*3/uL Final 02/01/2024 04:34 AM 479 (H) 130 - 400 10*3/uL Final 01/31/2024 06:12 AM 439 (H) 130 - 400 10*3/uL Final 01/30/2024 04:15 AM 466 (H) 130 - 400 10*3/uL Final POTASSIUM Date/Time Value Ref Range Status 02/05/2024 05:25 AM 4.3 3.5 - 5.1 MMOL/L Final 02/04/2024 05:25 AM 4.4 3.5 - 5.1 MMOL/L Final 02/03/2024 05:52 AM 4.4 3.5 - 5.1 MMOL/L Final 02/02/2024 05:14 AM 4.2 3.5 - 5.1 MMOL/L Final 02/01/2024 04:34 AM 4.4 3.5 - 5.1 MMOL/L Final 01/31/2024 06:12 AM 4.5 3.5 - 5.1 MMOL/L Final 01/30/2024 04:15 AM 4.4 3.5 - 5.1 MMOL/L Final CHLORIDE Date/Time Value Ref Range Status 02/05/2024 05:25 AM 104 98 - 107 MMOL/L Final Comment: Please note: Triglyceride levels of 600mg/dL or higher may positively bias chloride results by approximately 2.1 mmol 02/04/2024 05:25 AM 104 98 - 107 MMOL/L Final Comment: Please note: Triglyceride levels of 600mg/dL or higher may positively bias chloride results by approximately 2.1 mmol 02/03/2024 05:52 AM 104 98 - 107 MMOL/L Final Comment: Please note: Triglyceride levels of 600mg/dL or higher may positively bias chloride results by approximately 2.1 mmol 02/02/2024 05:14 AM 103 98 - 107 MMOL/L Final Comment: Please note: Triglyceride levels of 600mg/dL or higher may positively bias chloride results by approximately 2.1 mmol 02/01/2024 04:34 AM 103 98 - 107 MMOL/L Final Comment: Please note: Triglyceride levels of 600mg/dL or higher may positively bias chloride results by approximately 2.1 mmol 01/31/2024 06:12 AM 102 98 - 107 MMOL/L Final Comment: Please note: Triglyceride levels of 600mg/dL or higher may positively bias chloride results by approximately 2.1 mmol 01/30/2024 04:15 AM 101 98 - 107 MMOL/L Final Comment: Please note: Triglyceride levels of 600mg/dL or higher may positively bias chloride results by approximately 2.1 mmol CARBON DIOXIDE (CO2) Date/Time Value Ref Range Status 02/05/2024 05:25 AM 30 22 - 30 MMOL/L Final 02/04/2024 05:25 AM 31 (H) 22 - 30 MMOL/L Final 02/03/2024 05:52 AM 29 22 - 30 MMOL/L Final 02/02/2024 05:14 AM 30 22 - 30 MMOL/L Final 02/01/2024 04:34 AM 28 22 - 30 MMOL/L Final 01/31/2024 06:12 AM 33 (H) 22 - 30 MMOL/L Final 01/30/2024 04:15 AM 31 (H) 22 - 30 MMOL/L Final Glucose Date/Time Value Ref Range Status 02/05/2024 05:25 AM 101 (H) 70 - 100 MG/DL Final Comment: NORMAL <100 mg/dL PREDIABETES 101-126 mg/dL DIABETES 126 mg/dL or higher 02/04/2024 05:25 AM 96 70 - 100 MG/DL Final Comment: NORMAL <100 mg/dL PREDIABETES 101-126 mg/dL DIABETES 126 mg/dL or higher 02/03/2024 05:52 AM 100 70 - 100 MG/DL Final Comment: NORMAL <100 mg/dL PREDIABETES 101-126 mg/dL DIABETES 126 mg/dL or higher 02/02/2024 05:14 AM 103 (H) 70 - 100 MG/DL Final Comment: NORMAL <100 mg/dL PREDIABETES 101-126 mg/dL DIABETES 126 mg/dL or higher 02/01/2024 04:34 AM 98 70 - 100 MG/DL Final Comment: NORMAL <100 mg/dL PREDIABETES 101-126 mg/dL DIABETES 126 mg/dL or higher 01/31/2024 06:12 AM 94 70 - 100 MG/DL Final Comment: NORMAL <100 mg/dL PREDIABETES 101-126 mg/dL DIABETES 126 mg/dL or higher 01/30/2024 04:15 AM 93 70 - 100 MG/DL Final Comment: NORMAL <100 mg/dL PREDIABETES 101-126 mg/dL DIABETES 126 mg/dL or higher BUN Date/Time Value Ref Range Status 02/05/2024 05:25 AM 14 7 - 20 MG/DL Final 02/04/2024 05:25 AM 18 7 - 20 MG/DL Final 02/03/2024 05:52 AM 17 7 - 20 MG/DL Final 02/02/2024 05:14 AM 18 7 - 20 MG/DL Final 02/01/2024 04:34 AM 14 7 - 20 MG/DL Final 01/31/2024 06:12 AM 12 7 - 20 MG/DL Final 01/30/2024 04:15 AM 10 7 - 20 MG/DL Final CREATININE SERUM Date/Time Value Ref Range Status 02/05/2024 05:25 AM 0.80 0.7 - 1.2 MG/DL Final 02/04/2024 05:25 AM 0.80 0.7 - 1.2 MG/DL Final 02/03/2024 05:52 AM 0.90 0.7 - 1.2 MG/DL Final 02/02/2024 05:14 AM 0.90 0.7 - 1.2 MG/DL Final 02/01/2024 04:34 AM 0.90 0.7 - 1.2 MG/DL Final 01/31/2024 06:12 AM 1.10 0.7 - 1.2 MG/DL Final 01/30/2024 04:15 AM 1.00 0.7 - 1.2 MG/DL Final Albumin Date/Time Value Ref Range Status 01/31/2024 06:12 AM 3.0 (L) 3.5 - 5.0 G/DL Final 01/23/2024 04:37 AM 2.6 (L) 3.5 - 5.0 G/DL Final 01/17/2024 04:31 AM 2.6 (L) 3.5 - 5.0 G/dl Final 12/16/2023 12:35 PM 4.0 3.5 - 5.0 G/dl Final CALCIUM Date/Time Value Ref Range Status 02/05/2024 05:25 AM 8.8 8.4 - 10.2 MG/DL Final 02/04/2024 05:25 AM 8.8 8.4 - 10.2 MG/DL Final 02/03/2024 05:52 AM 9.1 8.4 - 10.2 MG/DL Final 02/02/2024 05:14 AM 8.9 8.4 - 10.2 MG/DL Final 02/01/2024 04:34 AM 8.9 8.4 - 10.2 MG/DL Final 01/31/2024 06:12 AM 8.7 8.4 - 10.2 MG/DL Final 01/30/2024 04:15 AM 8.6 8.4 - 10.2 MG/DL Final ALKALINE PHOSPHATASE Date/Time Value Ref Range Status 01/31/2024 06:12 AM 107 38 - 126 IU/L Final 01/23/2024 04:37 AM 99 38 - 126 IU/L Final 12/16/2023 12:35 PM 89 38 - 126 IU/L Final AST Date/Time Value Ref Range Status 01/31/2024 06:12 AM 26 14 - 36 IU/L Final 01/23/2024 04:37 AM 25 14 - 36 IU/L Final 12/16/2023 12:35 PM 25 14 - 36 IU/L Final BILIRUBIN, TOTAL Date/Time Value Ref Range Status 01/31/2024 06:12 AM 0.2 0.2 - 1.3 MG/DL Final 01/23/2024 04:37 AM 0.3 0.2 - 1.3 MG/DL Final 12/16/2023 12:35 PM 0.3 0.2 - 1.3 MG/DL Final ANION GAP Date/Time Value Ref Range Status 02/05/2024 05:25 AM 1 (L) 8 - 16 MMOL/L Final 02/04/2024 05:25 AM 1 (L) 8 - 16 MMOL/L Final 02/03/2024 05:52 AM 2 (L) 8 - 16 MMOL/L Final 02/02/2024 05:14 AM 1 (L) 8 - 16 MMOL/L Final 02/01/2024 04:34 AM 2 (L) 8 - 16 MMOL/L Final 01/31/2024 06:12 AM NEG 1 8 - 16 MMOL/L Final 01/30/2024 04:15 AM 3 (L) 8 - 16 MMOL/L Final ALT Date/Time Value Ref Range Status 01/31/2024 06:12 AM 13 <35 IU/L Final 01/23/2024 04:37 AM 10 <35 IU/L Final 12/16/2023 12:35 PM 16 <35 IU/L Final ESTIMATED GFR, NON AMER Date/Time Value Ref Range Status 02/05/2024 05:25 AM 73 ml/min/1.73sq.m Final 02/04/2024 05:25 AM 73 ml/min/1.73sq.m Final 02/03/2024 05:52 AM 64 ml/min/1.73sq.m Final 02/02/2024 05:14 AM 64 ml/min/1.73sq.m Final 02/01/2024 04:34 AM 64 ml/min/1.73sq.m Final 01/31/2024 06:12 AM 51 ml/min/1.73sq.m Final 01/30/2024 04:15 AM 57 ml/min/1.73sq.m Final ESTIMATED GFR, Date/Time Value Ref Range Status 02/05/2024 05:25 AM 89 ml/min/1.73sq.m Final 02/04/2024 05:25 AM 89 ml/min/1.73sq.m Final 02/03/2024 05:52 AM 77 ml/min/1.73sq.m Final 02/02/2024 05:14 AM 77 ml/min/1.73sq.m Final 02/01/2024 04:34 AM 77 ml/min/1.73sq.m Final 01/31/2024 06:12 AM 61 ml/min/1.73sq.m Final 01/30/2024 04:15 AM 68 ml/min/1.73sq.m Final GFR COMMENT Date/Time Value Ref Range Status 02/05/2024 05:25 AM Average GFR for 70+ years old = 75. Final Comment: Chronic Kidney disease, GFR = <60. Kidney failure, GFR = <15. The GFR estimate is not adjusted for extreme body surface area or acute process, nor has it been validated for women or ethnic groups other than and . CBC Lab Results Component Value Date WBC 5.0 02/05/2024 HGB 10.4 (L) 02/05/2024 HCT 30.8 (L) 02/05/2024 PLATELET 378 02/05/2024 MCV 95.8 02/05/2024 EDIF Lab Results Component Value Date RBCDISTRIBU 15.2 (H) 02/05/2024 EOSINOPHILS 2.6 02/05/2024 EOSINOPHILS 0.1 02/05/2024 BASOPHILS 0.9 02/05/2024 BASOPHILS 0.0 02/05/2024 LYMPHOCYTABS 1.2 02/05/2024 PLATELET 378 02/05/2024 MPV 6.6 (L) 02/05/2024 Lab Results Component Value Date SODIUM 135 (L) 02/05/2024 POTASSIUM 4.3 02/05/2024 CHLORIDE 104 02/05/2024 CO2 30 02/05/2024 BUN 14 02/05/2024 CREATSERUM 0.80 02/05/2024 GLUCOSE 101 (H) 02/05/2024 Micro C difficile stool 01/23- Urine culture 01/20- 01/20 Nares - 12/16/2023 positive nares test for MSSA 12/15 urine test positive for Klebsiella only resistant to ampicillin and Macrobid XR CHEST 1 VIEW PORTABLE Final Result IMPRESSION: 1. Cardiomegaly. 2. Aortic tortuosity. 3. Minor effusion in the left lung base is suspected. 4. Both lungs are expanded. I am not seeing any obvious displaced fracture although detail is limited. There are accentuated interstitial markings which may well be chronic. ASSESSMENT AND PLAN . Cuate Goodman 83 y.o. with a history of multiple medical problems including DVT/PE, morbid obesity, degenerative joint disease presents with left hip pain undergoing left total hip arthroplasty on 01/10 showing degenerative changes Left total hip arthroplasty, concern for superficial wound infection -history of development of erythema around the incision site on 01/18 or 01/19 without systemic signs of infection -No drainage for wound cx -perioperative nares culture was positive for MSSA, repeat culture 01/20 negative -antibiotic therapy will be given especially in the setting of underlying hardware in the postop period to try to prevent any spread of superficial infection to deeper areas of hardware and this was discussed with her and all questions answered -s/p zyvox 01/20-01/26 -s/p Septra 01/26-01/29 -s/p mupirocin twice daily, 01/22-01/26 -recommend avoiding any rubbing of the undergarments, discussed with nursing -status post 10 day course of antibiotics, discontinued on 01/29. -overall slowly healing without clear evidence of infection -Betadine paint to Wound incision per orthopedics -x-ray shows good position of hardware History of Klebsiella positive urine culture -urinalysis 12/15 with too numerous to count white cells and +3 bacteria -history of Klebsiella positive urine culture in November of 2023 only resistant to ampicillin and Macrobid -patient denies any urinary symptoms and UA bland, culture 01/20 negative Inflammatory markers -check Trends -CRP 58, 42, 46, 33, 28, 28, 30, 28, 25, 27, 26, 26, 21, 21, 21 -ESR 71 -CRP stable Anemia -hemoglobin 9.5, 10.7, 10, 10.1, 10.1, 9.8, 10.3, 10.6, 10, 10.3, 10, 10.6, 10.5, 10.7, 10.2, 10.4 -previous anemia workup in November of 2022 was negative with normal iron, B12 and folate studies -Fe 37 -hemoglobin stable Thrombocytosis -platelets 440, 438, 470, 438, 466, 439, 479, 429, 472, 415, 378 -normalized Healthcare maintenance -hemoglobin A1c normal at 5.7 on 12/15 History of DVT/PE -anticoagulation per primary team Disposition -ongoing PT/OT Diarrhea, history -C diff testing and GI pathogen panel negative -probiotic prescribed. -suspicious for a viral process -Resolved Nausea/poor appetite -lipase, LFTs were not abnormal 01/30 -pre albumin low at 11.9 -encourage p.o. intake, protein shakes -Improving Posterior thigh wounds -wound care consulted -Offloading Janet Moreno MD DAILY PROGRESS NOTE ] Admit Date: 01/19/2024 [facility] LOS: 17 days IMPRESSION AND PLAN: 83 y.o. 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 1) Severe left hip arthritis s/p total hip arthroplasty PT/OT Continue with eliquis Continue with flexeril Continue with norco PRN Continue with senokot PRN Continue with tramadol PRN Encourage compliance with PT/OT. Persistent weakness noted. 2) Chronic normocytic anemia H and H 9.8 -> 9.5 -> 10.7 -> 10.0 -> 10.1 -> 9.8 -> 10.3 -> 10.6 -> 10.0 -> 10.3 -> 10.0 -> 10.6 -> 10.5 -> 10.7 and 29.2 -> 27.7 -> 31.8 -> 29.1 -> 29.3 -> 29.4 -> 29.0 -> 30.7 -> 31.3 -> >29.3 -> 29.9 -> 29.3 -> 31.4 -> 31.1 -> 31.8 Fe 29, TIBC 144, transferrin 20 Continue with iron Serial CBC 3) Gout Currently on allopurinol 4) GERD Currently on protonix. 5) Diarrhea Probably viral C. Diff is negative GI panel is negative. Workup is negative to-date Supportive care. Monitor for hypotension Monitor for hypokalemia Improved. 6) Cellulitis Antibiotic therapy will be given especially in the setting of underlying hardware in the postop period to try to prevent any spread of superficial infection to deeper areas of hardware CRP 58.3 -> 33.6 -> 28.4 -> 30.5 -> 28.9 -> 25.8 -> 26.1 -> 21.4-> 26.3 -> 21.9, stable. Finished a course of linezolid Finished a course of bactrobran Finished a course of bactrim DS BID. Continue with nystatin cream Encourage PO intake. Followed by ID 7) HTN SBP 120/90s Continue with lisinopril. 8) Mild oral thrush Nystatin swish and swallow, continue symptomatic treatment of lip dryness 9) Urinary incontinence Will get UA Supportive care SUBJECTIVE: Patient seen and examined. Chart, medications, labs reviewed. Office Visit on 02/02/2024 Component Date Value Ref Range Status BSA 02/02/2024 2.18 m2 In process LABS Labs-ABGs Labs-CBC @CBCBRIEFROUNDS@ Labs-Chem 7([facility]) Bun/Creat/Cl/CO2/Glucose: 18/0.80/104/31/96 (02/03 525) Na/K+/Phos/Mg/Ca: 136/4.4/--/--/8.8 (02/03 525) Labs-Coags WBC (WHITE BLOOD COUNT) Date Value Ref Range Status 02/04/2024 6.0 3.6 - 11.0 10*3/uL Final 02/03/2024 6.3 3.6 - 11.0 10*3/uL Final 02/02/2024 6.0 3.6 - 11.0 10*3/uL Final HEMOGLOBIN (HGB) Date Value Ref Range Status 02/04/2024 10.2 (L) 12.0 - 16.0 G/DL Final 02/03/2024 10.7 (L) 12.0 - 16.0 G/DL Final 02/02/2024 10.5 (L) 12.0 - 16.0 G/DL Final HEMATOCRIT (HCT) Date Value Ref Range Status 02/04/2024 30.0 (L) 36.0 - 48.0 % Final 02/03/2024 31.8 (L) 36.0 - 48.0 % Final 02/02/2024 31.1 (L) 36.0 - 48.0 % Final PLATELET COUNT Date Value Ref Range Status 02/04/2024 415 (H) 130 - 400 10*3/uL Final 02/03/2024 472 (H) 130 - 400 10*3/uL Final 02/02/2024 429 (H) 130 - 400 10*3/uL Final SODIUM Date Value Ref Range Status 02/04/2024 136 (L) 137 - 145 MMOL/L Final 02/03/2024 135 (L) 137 - 145 MMOL/L Final 02/02/2024 134 (L) 137 - 145 MMOL/L Final CHLORIDE Date Value Ref Range Status 02/04/2024 104 98 - 107 MMOL/L Final Comment: Please note: Triglyceride levels of 600mg/dL or higher may positively bias chloride results by approximately 2.1 mmol 02/03/2024 104 98 - 107 MMOL/L Final Comment: Please note: Triglyceride levels of 600mg/dL or higher may positively bias chloride results by approximately 2.1 mmol 02/02/2024 103 98 - 107 MMOL/L Final Comment: Please note: Triglyceride levels of 600mg/dL or higher may positively bias chloride results by approximately 2.1 mmol BUN Date Value Ref Range Status 02/04/2024 18 7 - 20 MG/DL Final 02/03/2024 17 7 - 20 MG/DL Final 02/02/2024 18 7 - 20 MG/DL Final POTASSIUM Date Value Ref Range Status 02/04/2024 4.4 3.5 - 5.1 MMOL/L Final 02/03/2024 4.4 3.5 - 5.1 MMOL/L Final 02/02/2024 4.2 3.5 - 5.1 MMOL/L Final CREATININE SERUM Date Value Ref Range Status 02/04/2024 0.80 0.7 - 1.2 MG/DL Final 02/03/2024 0.90 0.7 - 1.2 MG/DL Final 02/02/2024 0.90 0.7 - 1.2 MG/DL Final Glucose Date Value Ref Range Status 02/04/2024 96 70 - 100 MG/DL Final Comment: NORMAL <100 mg/dL PREDIABETES 101-126 mg/dL DIABETES 126 mg/dL or higher 02/03/2024 100 70 - 100 MG/DL Final Comment: NORMAL <100 mg/dL PREDIABETES 101-126 mg/dL DIABETES 126 mg/dL or higher 02/02/2024 103 (H) 70 - 100 MG/DL Final Comment: NORMAL <100 mg/dL PREDIABETES 101-126 mg/dL DIABETES 126 mg/dL or higher PT Date Value Ref Range Status 01/11/2024 14.2 11.8 - 14.4 SEC Final 12/16/2023 17.9 (H) 11.8 - 14.4 SEC Final PROTEIN, TOTAL Date Value Ref Range Status 01/31/2024 6.1 (L) 6.3 - 8.2 GM/DL Final 01/23/2024 5.6 (L) 6.3 - 8.2 GM/DL Final 12/16/2023 7.2 6.3 - 8.2 GM/DL Final Albumin Date Value Ref Range Status 01/31/2024 3.0 (L) 3.5 - 5.0 G/DL Final 01/23/2024 2.6 (L) 3.5 - 5.0 G/DL Final 01/17/2024 2.6 (L) 3.5 - 5.0 G/dl Final AST Date Value Ref Range Status 01/31/2024 26 14 - 36 IU/L Final 01/23/2024 25 14 - 36 IU/L Final 12/16/2023 25 14 - 36 IU/L Final ALT Date Value Ref Range Status 01/31/2024 13 <35 IU/L Final 01/23/2024 10 <35 IU/L Final 12/16/2023 16 <35 IU/L Final BILIRUBIN, TOTAL Date Value Ref Range Status 01/31/2024 0.2 0.2 - 1.3 MG/DL Final CALCIUM Date Value Ref Range Status 02/04/2024 8.8 8.4 - 10.2 MG/DL Final 02/03/2024 9.1 8.4 - 10.2 MG/DL Final 02/02/2024 8.9 8.4 - 10.2 MG/DL Final PHOSPHORUS Date Value Ref Range Status 01/17/2024 2.6 2.5 - 4.5 MG/DL Final Lab Results Component Value Date CREATSERUM 0.80 02/04/2024 BUN 18 02/04/2024 SODIUM 136 (L) 02/04/2024 POTASSIUM 4.4 02/04/2024 CHLORIDE 104 02/04/2024 CO2 31 (H) 02/04/2024 ROS: Constitution: No fever, no chill HEENT: No headache, no sinus issues CV: No chest pain, no palpitation Lung: No cough, No SOB Abd: No diarrhea, no constipation Neuro: No seizure, no loss of consciousness Heme: No bleeding, no bruise PHYSICAL EXAM: Wt Readings from Last 3 Encounters: 02/04/24 111.2 kg (245 lb 3.2 oz) 02/02/24 109.3 kg (241 lb) 12/08/23 103 kg (227 lb) Temp Readings from Last 3 Encounters: 02/04/24 97.8 F (36.6 C) (Oral) 02/02/24 98.8 F (37.1 C) (Temporal) 01/19/24 98.2 F (36.8 C) (Temporal) BP Readings from Last 3 Encounters: 02/04/24 107/69 01/19/24 137/62 12/16/23 135/89 Pulse Readings from Last 3 Encounters: 02/04/24 99 01/19/24 89 12/16/23 73 Gen: NAD, lying in bed, conversant HEENT: Atraumatic, PERRLA, moist membrane CV: RRR, nl S1 and S2, no m/g/r Lung: CTAB, no wheezing, no crackle Abd: +BS, nontender, no distended Ext: No rash, no clubbing, no cyanosis. No edema. Neuro: CNII-XII grossly intact, 5/5 strength, normal tone Skin: Warm and dry 02/04/24 1602 Time In/Out OT Therapy Completed Attempted (had attempted before lunch also and pt was sound asleep and was sound asleep and unable to be aroused - nurse informed) Attempted Reason Patient declined session (nurse informed of pt refusal) Infectious Disease progress note SUBJECTIVE History of Present Illness: Cuate Goodman 83 y.o. female with a history of left degenerative hip disease with ongoing left hip pain with reported decreased quality of life due to this condition. The patient was seen by Orthopedics and Dr. Heredia performed surgery 01/10 with a left total hip arthroplasty. Total hip arthroplastic surgery on 01/10 did not have noted complications or infectious issues per chart review. The patient was subsequently discharged after an admission from 01/10-01/18 on the med surg unit without stated ID issue. There was no antibiotics at time of discharge. Pathology from knee replacement surgery showed consistent with degenerative joint disease without mention of infection. Has history of previous right total hip arthroplasty and left total knee arthroplasty noted. Past medical history also includes obesity, degenerative joint disease and history of DVT and PE. Additional history includes right bundle-branch block, diastolic dysfunction, B12 deficiency, impaired fasting glucose with normal preoperative A1c, elevated uric acid level, GERD, urinary incontinence, history of abdominal aortic aneurysm. Patient does have a history of penicillin allergy resulting in hives but no other allergies to antibiotics noted. The patient denies any tobacco, alcohol or drug use. No prior use reported. Patient was subsequently admitted swing bed for rehabilitation on 01/18. Patient underwent pain control, PT/OT and ongoing medical management. Patient was noted to have erythema that began around her left hip site approximately on 01/18 or 01/19 per nursing report. There has been no described drainage from her hip. Patient denies any specific areas pain in her hip joint. There is no reported fevers or chills or night sweats at time of initial consultation. The patient denies any new respiratory, abdominal or urinary symptoms. Specifically she denies any UTI symptoms Infectious disease consult 01/21/2024, patient began on Zyvox for superficial postop infection, Interval events: 24 hour events reviewed. No hip pain reported. No fevers or chills. Case discussed with orthopedics and patient was getting Betadine painting to her left hip. Denies any discomfort here in this area. CRP 21 gradually declining. Patient now off of antibiotics. She is hoping to go home and states she is making an effort to participate in PT and have better nutrition including with protein shakes. Denies any pulmonary, gastroenterology or urinary symptoms. ROS A complete review of systems are negative except those consistent with HPI OBJECTIVE Past Medical History: Diagnosis Date Aortic aneurysm Arthritis Deep vein thrombosis (DVT) GERD (gastroesophageal reflux disease) Past Medical History: Diagnosis Date Aortic aneurysm Arthritis Deep vein thrombosis (DVT) GERD (gastroesophageal reflux disease) Past Surgical History: Procedure Laterality Date ARTHROPLASTY HIP TOTAL Left 01/11/2024 Laterality: Left; Surgeon: Erik Heredia MD; Location: [facility] OR NEPHRECTOMY Right 1979 CHOLECYSTECTOMY HIP REPLACEMENT Right HYSTERECTOMY KNEE REPLACEMENT Bilateral left x 2 LITHOTRIPSY multiple Patient Active Problem List Diagnosis S/P total hip arthroplasty Gout Aneurysm of ascending aorta without rupture Aneurysmal dilatation Closed fracture of hand Fracture of metacarpal bone Gastro-esophageal reflux disease without esophagitis Hypomagnesemia Lumbar spondylosis Mixed stress and urge urinary incontinence Morbid (severe) obesity due to excess calories Other disorders of plasma-protein metabolism, not elsewhere classified Pulmonary embolism Solitary kidney, acquired Thoracic aortic ectasia Unilateral primary osteoarthritis, left hip Unsteadiness on feet S/P total left hip arthroplasty Social History Socioeconomic History Marital status: Single Spouse name: Not on file Number of children: Not on file Years of education: Not on file Highest education level: Not on file Occupational History Not on file Tobacco Use Smoking status: Never Smokeless tobacco: Never Substance and Sexual Activity Alcohol use: Never Drug use: Never Sexual activity: Not on file Other Topics Concern Not on file Social History Narrative Not on file Social Determinants of Health Financial Resource Strain: Low Risk (01/21/2024) Overall Financial Resource Strain (CARDIA) Difficulty of Paying Living Expenses: Not very hard Food Insecurity: No Food Insecurity (01/21/2024) Hunger Vital Sign Worried About Running Out of Food in the Last Year: Never true Ran Out of Food in the Last Year: Never true Transportation Needs: No Transportation Needs (01/21/2024) PRAPARE - Transportation Lack of Transportation (Medical): No Lack of Transportation (Non-Medical): No Physical Activity: Not on file Stress: Not on file Social Connections: Not on file Intimate Partner Violence: Not At Risk (01/21/2024) Humiliation, Afraid, Rape, and Kick questionnaire Fear of Current or Ex-Partner: No Emotionally Abused: No Physically Abused: No Sexually Abused: No Housing Stability: Low Risk (01/21/2024) Housing Stability Vital Sign Unable to Pay for Housing in the Last Year: No Number of Places Lived in the Last Year: 1 Unstable Housing in the Last Year: No Current Facility-Administered Medications: Acetaminophen (TYLENOL) tablet 650 mg, 650 mg, Oral, Q4H PRN, Mohan Gomez MD, 650 mg at 02/02/24 09 Allopurinol (ZYLOPRIM) tablet 100 mg, 100 mg, Oral, Daily, Mohan Gomez MD, 100 mg at 02/04/2404 apixaban (ELIQUIS) tablet 5 mg, 5 mg, Oral, Q12H, Mohan Gomez MD, 5 mg at 02/04/24903 bisacodyl (DULCOLAX) suppository 10 mg, 10 mg, Rectal, Daily PRN, Mohan Gomez MD Cyclobenzaprine (FLEXERIL) tablet 5 mg, 5 mg, Oral, Q12H, Mohan Gomez MD, 5 mg at 02/04/24903 Docusate (COLACE) capsule 100 mg, 100 mg, Oral, Q12H, Mohan Gomez MD, 100 mg at 02/04/24903 ferrous sulfate tablet 325 mg, 325 mg, Oral, Daily, Mohan Gomez MD, 325 mg at 02/04/24903 hydroCODone-acetaminophen (NORCO) 5-325 MG per tablet 1 tablet, 1 tablet, Oral, Q4H PRN, Mohan Gomez MD, 1 tablet at 02/04/24 09 hydroCODone-acetaminophen (NORCO) 5-325 MG per tablet 2 tablet, 2 tablet, Oral, Q4H PRN, Mohan Gomez MD, 2 tablet at 02/04/24 0026 lactulose (CHRONULAC) oral solution 20 g, 20 g, Oral, TID PRN, Mohan Gomez MD Lisinopril (PRINIVIL) tablet 5 mg, 5 mg, Oral, Daily, Mohan Gomez MD, 5 mg at 02/04/2404 multivitamin tablet 1 tablet, 1 tablet, Oral, Daily, Mohan Gomez MD, 1 tablet at 02/04/24903 Ondansetron (ZOFRAN) tablet 4 mg, 4 mg, Oral, Q4H PRN, Mohan Gomez MD, 4 mg at 02/03/24 0816 Pantoprazole (PROTONIX) tablet DR 40 mg, 40 mg, Oral, Daily, Mohan Gomez MD, 40 mg at 02/04/24 09 Polyethylene glycol (MIRALAX) packet 17 g, 17 g, Oral, Q12H, Mohan Gomez MD, 17 g at 02/03/242117 Polyethylene glycol (MIRALAX) packet 17 g, 17 g, Oral, TID PRN, Mohan Gomez MD Povidone-Iodine (PROFEND) 10 % swab 1 Application, 1 Application, Topical, QHS, Mohan Gomez MD, 1 Application at 02/03/242116 senna-docusate (SENOKOT-S) 8.6-50 MG per tablet 2 tablet, 2 tablet, Oral, Q12H, Mohan Gomez MD, 2 tablet at 02/02/242041 Tolterodine (DETROL-LA) capsule XL 4 mg, 4 mg, Oral, Daily, Mohan Gomez MD, 4 mg at 02/04/24903 Zolpidem (AMBIEN) tablet 5 mg, 5 mg, Oral, QHS PRN, Mohan Gomez MD, 5 mg at 02/04/24 0026 Allergies Allergen Reactions Morphine Nausea and Vomiting Other Reaction(s): GI intolerance Oxycodone Nausea and Vomiting Other Reaction(s): GI intolerance Penicillins Hives Vitals: 02/03/24200902/04/24 0618 02/04/24 0751 02/04/24 0759 BP: 132/62 114/58 Pulse: 88 85 Resp: 18 Temp: 98 degrees F (36.7 degrees C) 98.1 degrees F (36.7 degrees C) TempSrc: Oral Oral SpO2: 95% 93% 93% Weight: 111.2 kg (245 lb 3.2 oz) Height: Intake/Output Summary (Last 24 hours) at 02/04/2024 1452 Last data filed at 02/03/2024 1800 Gross per 24 hour Intake 240 ml Output -- Net 240 ml Physical Exam: CONSTITUTIONAL: Alert and Oriented, in no distress, afebrile HEENT: Normocephalic and atraumatic, Sclera anicteric, PERRL, mild thrush improving, dry lips improving and no visualized HSV lesions CARDIAC: Normal rate, regular rhythm, normal heart sounds and intact distal pulses, no murmurs/rubs/clicks/gallops RESP: Effort normal and breath sounds are normal, but distant. No respiratory distress. No Wheezing/Rales/Cough, RA GI: Soft. Bowel sounds are normal. Nontender. Nondistended. Morbid obesity : No Suprapubic tenderness EXTREMITES: No cyanosis, clubbing; positive for history of left total knee arthroplasty. History of right total hip arthroplasty. Left total hip arthroplasty with incision with minimal erythema, overall improved, no pain, no drainage. Left greater than right lower extremity edema DERM: Skin is warm and dry. No rash noted MUSCULARSKELETAL: No septic arthritis noted NEUROLOGIC: Alert and communicative LAB RESULTS: WBC (WHITE BLOOD COUNT) Date/Time Value Ref Range Status 02/04/2024 05:25 AM 6.0 3.6 - 11.0 10*3/uL Final 02/03/2024 05:52 AM 6.3 3.6 - 11.0 10*3/uL Final 02/02/2024 05:14 AM 6.0 3.6 - 11.0 10*3/uL Final 02/01/2024 04:34 AM 5.8 3.6 - 11.0 10*3/uL Final 01/31/2024 06:12 AM 5.1 3.6 - 11.0 10*3/uL Final 01/30/2024 04:15 AM 5.3 3.6 - 11.0 10*3/uL Final 01/29/2024 05:38 AM 4.7 3.6 - 11.0 10*3/uL Final HEMOGLOBIN (HGB) Date/Time Value Ref Range Status 02/04/2024 05:25 AM 10.2 (L) 12.0 - 16.0 G/DL Final 02/03/2024 05:52 AM 10.7 (L) 12.0 - 16.0 G/DL Final 02/02/2024 05:14 AM 10.5 (L) 12.0 - 16.0 G/DL Final 02/01/2024 04:34 AM 10.6 (L) 12.0 - 16.0 G/DL Final 01/31/2024 06:12 AM 10.0 (L) 12.0 - 16.0 G/DL Final 01/30/2024 04:15 AM 10.3 (L) 12.0 - 16.0 G/DL Final 01/29/2024 05:38 AM 10.0 (L) 12.0 - 16.0 G/DL Final HEMATOCRIT (HCT) Date/Time Value Ref Range Status 02/04/2024 05:25 AM 30.0 (L) 36.0 - 48.0 % Final 02/03/2024 05:52 AM 31.8 (L) 36.0 - 48.0 % Final 02/02/2024 05:14 AM 31.1 (L) 36.0 - 48.0 % Final 02/01/2024 04:34 AM 31.4 (L) 36.0 - 48.0 % Final 01/31/2024 06:12 AM 29.3 (L) 36.0 - 48.0 % Final 01/30/2024 04:15 AM 29.9 (L) 36.0 - 48.0 % Final 01/29/2024 05:38 AM 29.3 (L) 36.0 - 48.0 % Final PLATELET COUNT Date/Time Value Ref Range Status 02/04/2024 05:25 AM 415 (H) 130 - 400 10*3/uL Final 02/03/2024 05:52 AM 472 (H) 130 - 400 10*3/uL Final 02/02/2024 05:14 AM 429 (H) 130 - 400 10*3/uL Final 02/01/2024 04:34 AM 479 (H) 130 - 400 10*3/uL Final 01/31/2024 06:12 AM 439 (H) 130 - 400 10*3/uL Final 01/30/2024 04:15 AM 466 (H) 130 - 400 10*3/uL Final 01/29/2024 05:38 AM 438 (H) 130 - 400 10*3/uL Final POTASSIUM Date/Time Value Ref Range Status 02/04/2024 05:25 AM 4.4 3.5 - 5.1 MMOL/L Final 02/03/2024 05:52 AM 4.4 3.5 - 5.1 MMOL/L Final 02/02/2024 05:14 AM 4.2 3.5 - 5.1 MMOL/L Final 02/01/2024 04:34 AM 4.4 3.5 - 5.1 MMOL/L Final 01/31/2024 06:12 AM 4.5 3.5 - 5.1 MMOL/L Final 01/30/2024 04:15 AM 4.4 3.5 - 5.1 MMOL/L Final 01/29/2024 05:38 AM 4.2 3.5 - 5.1 MMOL/L Final CHLORIDE Date/Time Value Ref Range Status 02/04/2024 05:25 AM 104 98 - 107 MMOL/L Final Comment: Please note: Triglyceride levels of 600mg/dL or higher may positively bias chloride results by approximately 2.1 mmol 02/03/2024 05:52 AM 104 98 - 107 MMOL/L Final Comment: Please note: Triglyceride levels of 600mg/dL or higher may positively bias chloride results by approximately 2.1 mmol 02/02/2024 05:14 AM 103 98 - 107 MMOL/L Final Comment: Please note: Triglyceride levels of 600mg/dL or higher may positively bias chloride results by approximately 2.1 mmol 02/01/2024 04:34 AM 103 98 - 107 MMOL/L Final Comment: Please note: Triglyceride levels of 600mg/dL or higher may positively bias chloride results by approximately 2.1 mmol 01/31/2024 06:12 AM 102 98 - 107 MMOL/L Final Comment: Please note: Triglyceride levels of 600mg/dL or higher may positively bias chloride results by approximately 2.1 mmol 01/30/2024 04:15 AM 101 98 - 107 MMOL/L Final Comment: Please note: Triglyceride levels of 600mg/dL or higher may positively bias chloride results by approximately 2.1 mmol 01/29/2024 05:38 AM 101 98 - 107 MMOL/L Final Comment: Please note: Triglyceride levels of 600mg/dL or higher may positively bias chloride results by approximately 2.1 mmol CARBON DIOXIDE (CO2) Date/Time Value Ref Range Status 02/04/2024 05:25 AM 31 (H) 22 - 30 MMOL/L Final 02/03/2024 05:52 AM 29 22 - 30 MMOL/L Final 02/02/2024 05:14 AM 30 22 - 30 MMOL/L Final 02/01/2024 04:34 AM 28 22 - 30 MMOL/L Final 01/31/2024 06:12 AM 33 (H) 22 - 30 MMOL/L Final 01/30/2024 04:15 AM 31 (H) 22 - 30 MMOL/L Final 01/29/2024 05:38 AM 30 22 - 30 MMOL/L Final Glucose Date/Time Value Ref Range Status 02/04/2024 05:25 AM 96 70 - 100 MG/DL Final Comment: NORMAL <100 mg/dL PREDIABETES 101-126 mg/dL DIABETES 126 mg/dL or higher 02/03/2024 05:52 AM 100 70 - 100 MG/DL Final Comment: NORMAL <100 mg/dL PREDIABETES 101-126 mg/dL DIABETES 126 mg/dL or higher 02/02/2024 05:14 AM 103 (H) 70 - 100 MG/DL Final Comment: NORMAL <100 mg/dL PREDIABETES 101-126 mg/dL DIABETES 126 mg/dL or higher 02/01/2024 04:34 AM 98 70 - 100 MG/DL Final Comment: NORMAL <100 mg/dL PREDIABETES 101-126 mg/dL DIABETES 126 mg/dL or higher 01/31/2024 06:12 AM 94 70 - 100 MG/DL Final Comment: NORMAL <100 mg/dL PREDIABETES 101-126 mg/dL DIABETES 126 mg/dL or higher 01/30/2024 04:15 AM 93 70 - 100 MG/DL Final Comment: NORMAL <100 mg/dL PREDIABETES 101-126 mg/dL DIABETES 126 mg/dL or higher 01/29/2024 05:38 AM 94 70 - 100 MG/DL Final Comment: NORMAL <100 mg/dL PREDIABETES 101-126 mg/dL DIABETES 126 mg/dL or higher BUN Date/Time Value Ref Range Status 02/04/2024 05:25 AM 18 7 - 20 MG/DL Final 02/03/2024 05:52 AM 17 7 - 20 MG/DL Final 02/02/2024 05:14 AM 18 7 - 20 MG/DL Final 02/01/2024 04:34 AM 14 7 - 20 MG/DL Final 01/31/2024 06:12 AM 12 7 - 20 MG/DL Final 01/30/2024 04:15 AM 10 7 - 20 MG/DL Final 01/29/2024 05:38 AM 9 7 - 20 MG/DL Final CREATININE SERUM Date/Time Value Ref Range Status 02/04/2024 05:25 AM 0.80 0.7 - 1.2 MG/DL Final 02/03/2024 05:52 AM 0.90 0.7 - 1.2 MG/DL Final 02/02/2024 05:14 AM 0.90 0.7 - 1.2 MG/DL Final 02/01/2024 04:34 AM 0.90 0.7 - 1.2 MG/DL Final 01/31/2024 06:12 AM 1.10 0.7 - 1.2 MG/DL Final 01/30/2024 04:15 AM 1.00 0.7 - 1.2 MG/DL Final 01/29/2024 05:38 AM 0.80 0.7 - 1.2 MG/DL Final Albumin Date/Time Value Ref Range Status 01/31/2024 06:12 AM 3.0 (L) 3.5 - 5.0 G/DL Final 01/23/2024 04:37 AM 2.6 (L) 3.5 - 5.0 G/DL Final 01/17/2024 04:31 AM 2.6 (L) 3.5 - 5.0 G/dl Final 12/16/2023 12:35 PM 4.0 3.5 - 5.0 G/dl Final CALCIUM Date/Time Value Ref Range Status 02/04/2024 05:25 AM 8.8 8.4 - 10.2 MG/DL Final 02/03/2024 05:52 AM 9.1 8.4 - 10.2 MG/DL Final 02/02/2024 05:14 AM 8.9 8.4 - 10.2 MG/DL Final 02/01/2024 04:34 AM 8.9 8.4 - 10.2 MG/DL Final 01/31/2024 06:12 AM 8.7 8.4 - 10.2 MG/DL Final 01/30/2024 04:15 AM 8.6 8.4 - 10.2 MG/DL Final 01/29/2024 05:38 AM 8.3 (L) 8.4 - 10.2 MG/DL Final ALKALINE PHOSPHATASE Date/Time Value Ref Range Status 01/31/2024 06:12 AM 107 38 - 126 IU/L Final 01/23/2024 04:37 AM 99 38 - 126 IU/L Final 12/16/2023 12:35 PM 89 38 - 126 IU/L Final AST Date/Time Value Ref Range Status 01/31/2024 06:12 AM 26 14 - 36 IU/L Final 01/23/2024 04:37 AM 25 14 - 36 IU/L Final 12/16/2023 12:35 PM 25 14 - 36 IU/L Final BILIRUBIN, TOTAL Date/Time Value Ref Range Status 01/31/2024 06:12 AM 0.2 0.2 - 1.3 MG/DL Final 01/23/2024 04:37 AM 0.3 0.2 - 1.3 MG/DL Final 12/16/2023 12:35 PM 0.3 0.2 - 1.3 MG/DL Final ANION GAP Date/Time Value Ref Range Status 02/04/2024 05:25 AM 1 (L) 8 - 16 MMOL/L Final 02/03/2024 05:52 AM 2 (L) 8 - 16 MMOL/L Final 02/02/2024 05:14 AM 1 (L) 8 - 16 MMOL/L Final 02/01/2024 04:34 AM 2 (L) 8 - 16 MMOL/L Final 01/31/2024 06:12 AM NEG 1 8 - 16 MMOL/L Final 01/30/2024 04:15 AM 3 (L) 8 - 16 MMOL/L Final 01/29/2024 05:38 AM 3 (L) 8 - 16 MMOL/L Final ALT Date/Time Value Ref Range Status 01/31/2024 06:12 AM 13 <35 IU/L Final 01/23/2024 04:37 AM 10 <35 IU/L Final 12/16/2023 12:35 PM 16 <35 IU/L Final ESTIMATED GFR, NON AMER Date/Time Value Ref Range Status 02/04/2024 05:25 AM 73 ml/min/1.73sq.m Final 02/03/2024 05:52 AM 64 ml/min/1.73sq.m Final 02/02/2024 05:14 AM 64 ml/min/1.73sq.m Final 02/01/2024 04:34 AM 64 ml/min/1.73sq.m Final 01/31/2024 06:12 AM 51 ml/min/1.73sq.m Final 01/30/2024 04:15 AM 57 ml/min/1.73sq.m Final 01/29/2024 05:38 AM 73 ml/min/1.73sq.m Final ESTIMATED GFR, Date/Time Value Ref Range Status 02/04/2024 05:25 AM 89 ml/min/1.73sq.m Final 02/03/2024 05:52 AM 77 ml/min/1.73sq.m Final 02/02/2024 05:14 AM 77 ml/min/1.73sq.m Final 02/01/2024 04:34 AM 77 ml/min/1.73sq.m Final 01/31/2024 06:12 AM 61 ml/min/1.73sq.m Final 01/30/2024 04:15 AM 68 ml/min/1.73sq.m Final 01/29/2024 05:38 AM 89 ml/min/1.73sq.m Final GFR COMMENT Date/Time Value Ref Range Status 02/04/2024 05:25 AM Average GFR for 70+ years old = 75. Final Comment: Chronic Kidney disease, GFR = <60. Kidney failure, GFR = <15. The GFR estimate is not adjusted for extreme body surface area or acute process, nor has it been validated for women or ethnic groups other than and . CBC Lab Results Component Value Date WBC 6.0 02/04/2024 HGB 10.2 (L) 02/04/2024 HCT 30.0 (L) 02/04/2024 PLATELET 415 (H) 02/04/2024 MCV 95.7 02/04/2024 EDIF Lab Results Component Value Date RBCDISTRIBU 15.5 (H) 02/04/2024 EOSINOPHILS 3.2 02/04/2024 EOSINOPHILS 0.2 02/04/2024 BASOPHILS 0.7 02/04/2024 BASOPHILS 0.0 02/04/2024 LYMPHOCYTABS 1.5 02/04/2024 PLATELET 415 (H) 02/04/2024 MPV 6.8 (L) 02/04/2024 Lab Results Component Value Date SODIUM 136 (L) 02/04/2024 POTASSIUM 4.4 02/04/2024 CHLORIDE 104 02/04/2024 CO2 31 (H) 02/04/2024 BUN 18 02/04/2024 CREATSERUM 0.80 02/04/2024 GLUCOSE 96 02/04/2024 Micro C difficile stool 01/23- Urine culture 01/20- 01/20 Nares - 12/16/2023 positive nares test for MSSA 12/15 urine test positive for Klebsiella only resistant to ampicillin and Macrobid XR CHEST 1 VIEW PORTABLE Final Result IMPRESSION: 1. Cardiomegaly. 2. Aortic tortuosity. 3. Minor effusion in the left lung base is suspected. 4. Both lungs are expanded. I am not seeing any obvious displaced fracture although detail is limited. There are accentuated interstitial markings which may well be chronic. ASSESSMENT AND PLAN . Cuate Goodman 83 y.o. with a history of multiple medical problems including DVT/PE, morbid obesity, degenerative joint disease presents with left hip pain undergoing left total hip arthroplasty on 01/10 showing degenerative changes Left total hip arthroplasty, concern for superficial wound infection -history of development of erythema around the incision site on 01/18 or 01/19 without systemic signs of infection -No drainage for wound cx -perioperative nares culture was positive for MSSA, repeat culture 01/20 negative -antibiotic therapy will be given especially in the setting of underlying hardware in the postop period to try to prevent any spread of superficial infection to deeper areas of hardware and this was discussed with her and all questions answered -s/p zyvox 01/20-01/26 -s/p Septra 01/26-01/29 -s/p mupirocin twice daily, 01/22-01/26 -recommend avoiding any rubbing of the undergarments, discussed with nursing -status post 10 day course of antibiotics, discontinued on 01/29. -overall slowly healing without clear evidence of infection -Betadine paint to Wound incision per orthopedics -x-ray shows good position of hardware History of Klebsiella positive urine culture -urinalysis 12/15 with too numerous to count white cells and +3 bacteria -history of Klebsiella positive urine culture in November of 2023 only resistant to ampicillin and Macrobid -patient denies any urinary symptoms and UA bland, culture 01/20 negative Inflammatory markers -check Trends -CRP 58, 42, 46, 33, 28, 28, 30, 28, 25, 27, 26, 26, 21, 21 -ESR 71 -CRP trends improving/stable Anemia -hemoglobin 9.5, 10.7, 10, 10.1, 10.1, 9.8, 10.3, 10.6, 10, 10.3, 10, 10.6, 10.5, 10.7, 10.2 -previous anemia workup in November of 2022 was negative with normal iron, B12 and folate studies -Fe 37 -hemoglobin stable Thrombocytosis -platelets 440, 438, 470, 438, 466, 439, 479, 429, 472, 415 -while this could have been reactive, continues to be elevated raising the possibility of the central thrombocytosis or hematology issue. -We will continue to follow and if remains elevated would recommend Hematology referral -waxing and waning but still elevated Healthcare maintenance -hemoglobin A1c normal at 5.7 on 12/15 History of DVT/PE -anticoagulation per primary team Disposition -ongoing PT/OT Diarrhea, history -C diff testing and GI pathogen panel negative -probiotic prescribed. -suspicious for a viral process -Resolved Nausea/poor appetite -lipase, LFTs were not abnormal 01/30 -pre albumin low at 11.9 -encourage p.o. intake, protein shakes Posterior thigh wounds -wound care consulted Janet Moreno MD 02/04/24 1400 Physical Therapy Minutes Start Time 1400 Stop Time 1424 Time Calculation 24 PT Individual Minutes 24 minutes General Pain Documentation (Adult, OB, Peds) Presence of Pain denies pain/discomfort Presence of Pain Score (Auto-calculated) 0 Sit to Stand Equipment Used Sit to Stand Equipment used arm rest;two wheeled walker Sit to Stand Assistance Needed Adaptive equipment;Supervision Physical Assistance Level No physical assistance Comment SBA using FWW. CARE Score - Sit to Stand 4 Toilet Transfer Assistance Needed Adaptive equipment;Supervision Physical Assistance Level No physical assistance Comment Pt able to doff pants prior to sitting on toilet. Pt using arm rest for eccentric control. CARE Score - Toilet Transfer 4 Gait Assessment Distance Walked 100 Gait Equipment two-wheeled walker Gait Comments Pt ambulates using FWW with SBA and chair follow per pt request. Walk 10 Feet Assistance Needed Adaptive equipment;Supervision Physical Assistance Level No physical assistance CARE Score - Walk 10 Feet 4 Pt in bathroom on toilet with call light at end of treatment. Nursing notified of pt in bathroom. Pt seen today for 1x wound consult. Was assisted to stand with assist of Nisha HERNANDEZ with use of walker and gait belt. To both posterior thighs there are DTP injuries. The right post thigh area measures 13x18, the left measures 12x13. The right is darker than the left, darker purple in center. Both areas do not jj until further away from the centers of the discoloration. Instructed/educated pt on importance of offloading the sites often throughout the days to prevent the areas from worsening and opening. According to the pictures taken yesterday from Paige Damon the sites appear a little better. Pt agrees to move more and offload the sites Thank you DAILY PROGRESS NOTE Admit Date: 01/19/2024 Date of Evaluation: 411:05 PM [facility] LOS: 15 days IMPRESSION AND PLAN: 83 y.o. 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 1) Severe left hip arthritis s/p total hip arthroplasty PT/OT Continue with eliquis Continue with flexeril Continue with norco PRN Continue with senokot PRN Continue with tramadol PRN Encourage compliance with PT/OT. 2) Chronic normocytic anemia H and H 9.8 -> 9.5 -> 10.7 -> 10.0 -> 10.1 -> 9.8 -> 10.3 -> 10.6 -> 10.0 -> 10.3 -> 10.0 -> 10.6 -> 10.5 -> 10.7 and 29.2 -> 27.7 -> 31.8 -> 29.1 -> 29.3 -> 29.4 -> 29.0 -> 30.7 -> 31.3 -> >29.3 -> 29.9 -> 29.3 -> 31.4 -> 31.1 -> 31.8 Fe 29, TIBC 144, transferrin 20 Continue with iron Serial CBC 3) Gout Currently on allopurinol 4) GERD Currently on protonix. 5) Diarrhea Probably viral C. Diff is negative GI panel is negative. Workup is negative to-date Supportive care. Monitor for hypotension Monitor for hypokalemia Improved. 6) Cellulitis Antibiotic therapy will be given especially in the setting of underlying hardware in the postop period to try to prevent any spread of superficial infection to deeper areas of hardware CRP 58.3 -> 33.6 -> 28.4 -> 30.5 -> 28.9 -> 25.8 -> 26.1 -> 26.3 -> 21.9, stable. Finished a course of linezolid Finished a course of bactrobran Finished a course of bactrim DS BID. Continue with nystatin Encourage PO intake. Followed by ID 7) HTN SBP 120/90s Continue with lisinopril. 8) Mild oral thrush Nystatin swish and swallow, continue symptomatic treatment of lip dryness 9) Urinary incontinence Will get UA Supportive care SUBJECTIVE: Patient seen and examined. Chart, medications, labs reviewed. Office Visit on 02/02/2024 Component Date Value Ref Range Status BSA 02/02/2024 2.18 m2 In process LABS Labs-ABGs Labs-CBC @[email or web address]@ Labs-Chem 7([facility]) Bun/Creat/Cl/CO2/Glucose: 17/0.90/104/29/100 (02/03 552) Na/K+/Phos/Mg/Ca: 135/4.4/--/--/9.1 (02/03 552) Labs-Coags WBC (WHITE BLOOD COUNT) Date Value Ref Range Status 02/03/2024 6.3 3.6 - 11.0 10*3/uL Final 02/02/2024 6.0 3.6 - 11.0 10*3/uL Final 02/01/2024 5.8 3.6 - 11.0 10*3/uL Final HEMOGLOBIN (HGB) Date Value Ref Range Status 02/03/2024 10.7 (L) 12.0 - 16.0 G/DL Final 02/02/2024 10.5 (L) 12.0 - 16.0 G/DL Final 02/01/2024 10.6 (L) 12.0 - 16.0 G/DL Final HEMATOCRIT (HCT) Date Value Ref Range Status 02/03/2024 31.8 (L) 36.0 - 48.0 % Final 02/02/2024 31.1 (L) 36.0 - 48.0 % Final 02/01/2024 31.4 (L) 36.0 - 48.0 % Final PLATELET COUNT Date Value Ref Range Status 02/03/2024 472 (H) 130 - 400 10*3/uL Final 02/02/2024 429 (H) 130 - 400 10*3/uL Final 02/01/2024 479 (H) 130 - 400 10*3/uL Final SODIUM Date Value Ref Range Status 02/03/2024 135 (L) 137 - 145 MMOL/L Final 02/02/2024 134 (L) 137 - 145 MMOL/L Final 02/01/2024 133 (L) 137 - 145 MMOL/L Final CHLORIDE Date Value Ref Range Status 02/03/2024 104 98 - 107 MMOL/L Final Comment: Please note: Triglyceride levels of 600mg/dL or higher may positively bias chloride results by approximately 2.1 mmol 02/02/2024 103 98 - 107 MMOL/L Final Comment: Please note: Triglyceride levels of 600mg/dL or higher may positively bias chloride results by approximately 2.1 mmol 02/01/2024 103 98 - 107 MMOL/L Final Comment: Please note: Triglyceride levels of 600mg/dL or higher may positively bias chloride results by approximately 2.1 mmol BUN Date Value Ref Range Status 02/03/2024 17 7 - 20 MG/DL Final 02/02/2024 18 7 - 20 MG/DL Final 02/01/2024 14 7 - 20 MG/DL Final POTASSIUM Date Value Ref Range Status 02/03/2024 4.4 3.5 - 5.1 MMOL/L Final 02/02/2024 4.2 3.5 - 5.1 MMOL/L Final 02/01/2024 4.4 3.5 - 5.1 MMOL/L Final CREATININE SERUM Date Value Ref Range Status 02/03/2024 0.90 0.7 - 1.2 MG/DL Final 02/02/2024 0.90 0.7 - 1.2 MG/DL Final 02/01/2024 0.90 0.7 - 1.2 MG/DL Final Glucose Date Value Ref Range Status 02/03/2024 100 70 - 100 MG/DL Final Comment: NORMAL <100 mg/dL PREDIABETES 101-126 mg/dL DIABETES 126 mg/dL or higher 02/02/2024 103 (H) 70 - 100 MG/DL Final Comment: NORMAL <100 mg/dL PREDIABETES 101-126 mg/dL DIABETES 126 mg/dL or higher 02/01/2024 98 70 - 100 MG/DL Final Comment: NORMAL <100 mg/dL PREDIABETES 101-126 mg/dL DIABETES 126 mg/dL or higher PT Date Value Ref Range Status 01/11/2024 14.2 11.8 - 14.4 SEC Final 12/16/2023 17.9 (H) 11.8 - 14.4 SEC Final PROTEIN, TOTAL Date Value Ref Range Status 01/31/2024 6.1 (L) 6.3 - 8.2 GM/DL Final 01/23/2024 5.6 (L) 6.3 - 8.2 GM/DL Final 12/16/2023 7.2 6.3 - 8.2 GM/DL Final Albumin Date Value Ref Range Status 01/31/2024 3.0 (L) 3.5 - 5.0 G/DL Final 01/23/2024 2.6 (L) 3.5 - 5.0 G/DL Final 01/17/2024 2.6 (L) 3.5 - 5.0 G/dl Final AST Date Value Ref Range Status 01/31/2024 26 14 - 36 IU/L Final 01/23/2024 25 14 - 36 IU/L Final 12/16/2023 25 14 - 36 IU/L Final ALT Date Value Ref Range Status 01/31/2024 13 <35 IU/L Final 01/23/2024 10 <35 IU/L Final 12/16/2023 16 <35 IU/L Final BILIRUBIN, TOTAL Date Value Ref Range Status 01/31/2024 0.2 0.2 - 1.3 MG/DL Final CALCIUM Date Value Ref Range Status 02/03/2024 9.1 8.4 - 10.2 MG/DL Final 02/02/2024 8.9 8.4 - 10.2 MG/DL Final 02/01/2024 8.9 8.4 - 10.2 MG/DL Final PHOSPHORUS Date Value Ref Range Status 01/17/2024 2.6 2.5 - 4.5 MG/DL Final Lab Results Component Value Date CREATSERUM 0.90 02/03/2024 BUN 17 02/03/2024 SODIUM 135 (L) 02/03/2024 POTASSIUM 4.4 02/03/2024 CHLORIDE 104 02/03/2024 CO2 29 02/03/2024 ROS: Constitution: No fever, no chill HEENT: No headache, no sinus issues CV: No chest pain, no palpitation Lung: No cough, No SOB Abd: No diarrhea, no constipation Neuro: No seizure, no loss of consciousness Heme: No bleeding, no bruise PHYSICAL EXAM: Wt Readings from Last 3 Encounters: 02/03/24 109.9 kg (242 lb 4.8 oz) 02/02/24 109.3 kg (241 lb) 12/08/23 103 kg (227 lb) Temp Readings from Last 3 Encounters: 02/03/24 97.6 F (36.4 C) (Oral) 02/02/24 98.8 F (37.1 C) (Temporal) 01/19/24 98.2 F (36.8 C) (Temporal) BP Readings from Last 3 Encounters: 02/03/24 119/70 01/19/24 137/62 12/16/23 135/89 Pulse Readings from Last 3 Encounters: 02/03/24 95 01/19/24 89 12/16/23 73 Gen: NAD, lying in bed, conversant HEENT: Atraumatic, PERRLA, moist membrane CV: RRR, nl S1 and S2, no m/g/r Lung: CTAB, no wheezing, no crackle Abd: +BS, nontender, no distended Ext: No rash, no clubbing, no cyanosis. No edema. Neuro: CNII-XII grossly intact, 5/5 strength, normal tone Skin: Warm and dry 02/03/24 1400 Physical Therapy Minutes Start Time 1400 Stop Time 1435 Time Calculation 35 PT Individual Minutes 35 minutes General Pain Documentation (Adult, OB, Peds) Presence of Pain denies pain/discomfort Presence of Pain Score (Auto-calculated) 0 Sit to Lying Assistance Needed Physical assistance Physical Assistance Level Total assistance Comment Pt completed sit to supine requiring MaxA+2.Attempted to have pt try using leg structural designer although pt stated I can't when asked to try. Pt cued to lean onto R elbow and to not let herself go backwards. CARE Score - Sit to Lying 1 Sit to Stand Equipment Used Sit to Stand Equipment used arm rest;two wheeled walker Sit to Stand Assistance Needed Adaptive equipment;Supervision Physical Assistance Level No physical assistance CARE Score - Sit to Stand 4 Gait Assessment Distance Walked 70 Gait Equipment two-wheeled walker Deviations antalgic Gait Comments Pt ambulated 70ft TTWB on LLE using FWW with SBA. Walk 10 Feet Assistance Needed Adaptive equipment;Supervision Physical Assistance Level No physical assistance CARE Score - Walk 10 Feet 4 PT Barriers and Justification Impairments in Body Structure/Function strength;pain;aerobic capacity/endurance 02/03/24 0951 Occupational Therapy Minutes Start Time 0951 Stop Time 1041 Time Calculation 50 OT Individual Minutes 50 minutes General Pain Documentation (Adult, OB, Peds) Presence of Pain reports pain/discomfort Pain Location hip, left;leg, left Pain Management Interventions declines intervention (states pain is tolerable) Select Pain Scale DVPRS (Defense and Veterans Pain Rating Scale) (Adult-Cognitively Intact) DVPRS (Defense and Veterans Pain Rating Scale) DVPRS: Rest 5- moderate pain DVPRS: Activity 5- moderate pain Shower/Bathe Self Assistance Needed Physical assistance Physical Assistance Level 25% or less Comment UB bathe with set up. LB bathe with set up for proximal LEs and SBA-CGA during anterior chase bathe using FWW. Assist for distal BLEs (as pt declines use of long-handled sponge during swing-bed stay since she has this equipment at home) and posterior chase bathe. CARE Score - Shower/Bathe Self 3 Upper Body Dressing Assistance Needed Set-up / clean-up Comment Doffed gown independently. Donned new gown with set up. CARE Score - Upper Body Dressing 5 Lower Body Dressing Assistance Needed Incidental touching;Adaptive equipment Comment Doffed underwear with SBA-CGA for balance using FWW and group care worker with set up while seated. Donned underwear using group care worker while seated and SBA-CGA to don over waist using FWW. CARE Score - Lower Body Dressing 4 Putting On/Taking Off Footwear Assistance Needed Physical assistance Physical Assistance Level Total assistance Comment Declined use of equipment CARE Score - Putting On/Taking Off Footwear 1 Toileting Hygiene Assistance Needed Incidental touching;Adaptive equipment Comment SBA-CGA using FWW CARE Score - Toileting Hygiene 4 Chair/Pee-bi-Qunqr Transfer Assistance Needed Incidental touching;Adaptive equipment Comment SBA-CGA using FWW (initial CGA, as first time standing from chair this AM per pt report) CARE Score - Chair/Svp-jt-Oslkp Transfer 4 Toilet Transfer Assistance Needed Incidental touching;Adaptive equipment Comment SBA-CGA using FWW CARE Score - Toilet Transfer 4 S: Pleasant and conversant throughout encounter. O: Seen for ADL training (see above). In addition to above, pt ambulated with initial CGA and then SBA to/from bathroom using FWW. Pt continent of BM. Grooming tasks including brushing her hair while seated with set up. Reclined in chair at end of session with her call light and personal items placed in reach. Chair alarm activated with green light flashing. A: Improved independence with ADLs with adherence to global hip precautions. TTWB with instructional cue. P: OT per POC Marianna Lawson OTR/L 02/03/2024 02/03/24 1057 Physical Therapy Minutes Start Time 1057 Stop Time 1126 Time Calculation 29 PT Individual Minutes 29 minutes General Pain Documentation (Adult, OB, Peds) Presence of Pain not present: non-verbal indicator of pain/discomfort Presence of Pain Score (Auto-calculated) 0 Sit to Stand Equipment Used Sit to Stand Equipment used arm rest;two wheeled walker Sit to Stand Assistance Needed Adaptive equipment;Supervision Physical Assistance Level No physical assistance Comment SBA using FWW once standing CARE Score - Sit to Stand 4 Gait Assessment Distance Walked 90ft x2 Gait Equipment two-wheeled walker Gait Comments Pt ambulated 90ft using FWW SBA with chair follow d/t fatigue. Pt with TTWB on LLE. Walk 10 Feet Assistance Needed Adaptive equipment;Supervision Physical Assistance Level No physical assistance CARE Score - Walk 10 Feet 4 Stair Assessment Number of stairs completed 3 (4 inch step x 3 using FWW with CGA and VC for TTWB on LLE and Using BUE on FWW.) Stairs Equipment two-wheeled walker Ascending Gait Pattern step-to, right-leading Descending Gait Pattern step-to, left-leading PT Barriers and Justification Impairments in Body Structure/Function pain;strength;aerobic capacity/endurance Infectious Disease progress note SUBJECTIVE History of Present Illness: Cuate Goodman 83 y.o. female with a history of left degenerative hip disease with ongoing left hip pain with reported decreased quality of life due to this condition. The patient was seen by Orthopedics and Dr. Heredia performed surgery 01/10 with a left total hip arthroplasty. Total hip arthroplastic surgery on 01/10 did not have noted complications or infectious issues per chart review. The patient was subsequently discharged after an admission from 01/10-01/18 on the med surg unit without stated ID issue. There was no antibiotics at time of discharge. Pathology from knee replacement surgery showed consistent with degenerative joint disease without mention of infection. Has history of previous right total hip arthroplasty and left total knee arthroplasty noted. Past medical history also includes obesity, degenerative joint disease and history of DVT and PE. Additional history includes right bundle-branch block, diastolic dysfunction, B12 deficiency, impaired fasting glucose with normal preoperative A1c, elevated uric acid level, GERD, urinary incontinence, history of abdominal aortic aneurysm. Patient does have a history of penicillin allergy resulting in hives but no other allergies to antibiotics noted. The patient denies any tobacco, alcohol or drug use. No prior use reported. Patient was subsequently admitted swing bed for rehabilitation on 01/18. Patient underwent pain control, PT/OT and ongoing medical management. Patient was noted to have erythema that began around her left hip site approximately on 01/18 or 01/19 per nursing report. There has been no described drainage from her hip. Patient denies any specific areas pain in her hip joint. There is no reported fevers or chills or night sweats at time of initial consultation. The patient denies any new respiratory, abdominal or urinary symptoms. Specifically she denies any UTI symptoms Infectious disease consult 01/21/2024, patient began on Zyvox for superficial postop infection, Interval events: 24 hour events reviewed. Patient states appetite has picked up she is doing better. Eating. Family is bringing food and shakes. Patient also trying to eat food that is available at hospital. Patient denies any abdominal pain or nausea or vomiting. No urinary symptoms. Case discussed with orthopedics electronically regarding her left hip. No signs of infection noted and Betadine will be started. No UTI symptoms reported. Mouth is also healing well no further thrush noted ROS A complete review of systems are negative except those consistent with HPI OBJECTIVE Past Medical History: Diagnosis Date Aortic aneurysm Arthritis Deep vein thrombosis (DVT) GERD (gastroesophageal reflux disease) Past Medical History: Diagnosis Date Aortic aneurysm Arthritis Deep vein thrombosis (DVT) GERD (gastroesophageal reflux disease) Past Surgical History: Procedure Laterality Date ARTHROPLASTY HIP TOTAL Left 01/11/2024 Laterality: Left; Surgeon: Erik Heredia MD; Location: [facility] OR NEPHRECTOMY Right 1978 CHOLECYSTECTOMY HIP REPLACEMENT Right HYSTERECTOMY KNEE REPLACEMENT Bilateral left x 2 LITHOTRIPSY multiple Patient Active Problem List Diagnosis S/P total hip arthroplasty Gout Aneurysm of ascending aorta without rupture Aneurysmal dilatation Closed fracture of hand Fracture of metacarpal bone Gastro-esophageal reflux disease without esophagitis Hypomagnesemia Lumbar spondylosis Mixed stress and urge urinary incontinence Morbid (severe) obesity due to excess calories Other disorders of plasma-protein metabolism, not elsewhere classified Pulmonary embolism Solitary kidney, acquired Thoracic aortic ectasia Unilateral primary osteoarthritis, left hip Unsteadiness on feet S/P total left hip arthroplasty Social History Socioeconomic History Marital status: Single Spouse name: Not on file Number of children: Not on file Years of education: Not on file Highest education level: Not on file Occupational History Not on file Tobacco Use Smoking status: Never Smokeless tobacco: Never Substance and Sexual Activity Alcohol use: Never Drug use: Never Sexual activity: Not on file Other Topics Concern Not on file Social History Narrative Not on file Social Determinants of Health Financial Resource Strain: Low Risk (01/21/2024) Overall Financial Resource Strain (CARDIA) Difficulty of Paying Living Expenses: Not very hard Food Insecurity: No Food Insecurity (01/21/2024) Hunger Vital Sign Worried About Running Out of Food in the Last Year: Never true Ran Out of Food in the Last Year: Never true Transportation Needs: No Transportation Needs (01/21/2024) PRAPARE - Transportation Lack of Transportation (Medical): No Lack of Transportation (Non-Medical): No Physical Activity: Not on file Stress: Not on file Social Connections: Not on file Intimate Partner Violence: Not At Risk (01/21/2024) Humiliation, Afraid, Rape, and Kick questionnaire Fear of Current or Ex-Partner: No Emotionally Abused: No Physically Abused: No Sexually Abused: No Housing Stability: Low Risk (01/21/2024) Housing Stability Vital Sign Unable to Pay for Housing in the Last Year: No Number of Places Lived in the Last Year: 1 Unstable Housing in the Last Year: No Current Facility-Administered Medications: Acetaminophen (TYLENOL) tablet 650 mg, 650 mg, Oral, Q4H PRN, Mohan Gomez MD, 650 mg at 02/02/24 0935 Allopurinol (ZYLOPRIM) tablet 100 mg, 100 mg, Oral, Daily, Mohan Gomez MD, 100 mg at 02/03/24 0942 apixaban (ELIQUIS) tablet 5 mg, 5 mg, Oral, Q12H, Mohan Gomez MD, 5 mg at 02/03/24 0942 bisacodyl (DULCOLAX) suppository 10 mg, 10 mg, Rectal, Daily PRN, Mohan Gomez MD Cyclobenzaprine (FLEXERIL) tablet 5 mg, 5 mg, Oral, Q12H, Mohan Gomez MD, 5 mg at 02/03/24 0940 Docusate (COLACE) capsule 100 mg, 100 mg, Oral, Q12H, Mohan Gomez MD, 100 mg at 02/03/24 0942 ferrous sulfate tablet 325 mg, 325 mg, Oral, Daily, Mohan Gomez MD, 325 mg at 02/03/24 0942 hydroCODone-acetaminophen (NORCO) 5-325 MG per tablet 1 tablet, 1 tablet, Oral, Q4H PRN, Mohan Gomez MD, 1 tablet at 02/03/24 0816 hydroCODone-acetaminophen (NORCO) 5-325 MG per tablet 2 tablet, 2 tablet, Oral, Q4H PRN, Mohan Gomez MD, 2 tablet at 02/03/249 lactulose (CHRONULAC) oral solution 20 g, 20 g, Oral, TID PRN, Mohan Gomez MD Lisinopril (PRINIVIL) tablet 5 mg, 5 mg, Oral, Daily, Mohan Gomez MD, 5 mg at 02/03/24941 multivitamin tablet 1 tablet, 1 tablet, Oral, Daily, Mohan Gomez MD, 1 tablet at 02/03/24941 Nystatin (MYCOSTATIN) oral suspension 500,000 Units, 500,000 Units, Swish & Swallow, 4x daily, Janet Moreno MD, 500,000 Units at 02/03/24939 Ondansetron (ZOFRAN) tablet 4 mg, 4 mg, Oral, Q4H PRN, Mohan Gomez MD, 4 mg at 02/03/24815 Pantoprazole (PROTONIX) tablet DR 40 mg, 40 mg, Oral, Daily, Mohan Gomez MD, 40 mg at 02/03/24941 Polyethylene glycol (MIRALAX) packet 17 g, 17 g, Oral, Q12H, Mohan Gomez MD, 17 g at 02/02/242041 Polyethylene glycol (MIRALAX) packet 17 g, 17 g, Oral, TID PRN, Mohan Gomez MD senna-docusate (SENOKOT-S) 8.6-50 MG per tablet 2 tablet, 2 tablet, Oral, Q12H, Mohan Gomez MD, 2 tablet at 02/02/242041 Tolterodine (DETROL-LA) capsule XL 4 mg, 4 mg, Oral, Daily, Mohan Gomez MD, 4 mg at 02/03/24941 Zolpidem (AMBIEN) tablet 5 mg, 5 mg, Oral, QHS PRN, Mohan Gomez MD, 5 mg at 02/03/24 001 Allergies Allergen Reactions Morphine Nausea and Vomiting Other Reaction(s): GI intolerance Oxycodone Nausea and Vomiting Other Reaction(s): GI intolerance Penicillins Hives Vitals: 02/02/24200302/03/24 0300 02/03/24 0707 02/03/24 0812 BP: 119/64 119/70 Pulse: 95 95 Resp: 18 16 Temp: 98.6 degrees F (37 degrees C) 97.6 degrees F (36.4 degrees C) TempSrc: Oral Oral SpO2: 92% 94% 92% Weight: 109.9 kg (242 lb 4.8 oz) Height: Intake/Output Summary (Last 24 hours) at 02/03/2024 1107 Last data filed at 02/03/2024 0014 Gross per 24 hour Intake 360 ml Output -- Net 360 ml Physical Exam: CONSTITUTIONAL: Alert and Oriented, in no distress, afebrile HEENT: Normocephalic and atraumatic, Sclera anicteric, PERRL, mild thrush improving, dry lips improving and no visualized HSV lesions CARDIAC: Normal rate, regular rhythm, normal heart sounds and intact distal pulses, no murmurs/rubs/clicks/gallops RESP: Effort normal and breath sounds are normal, but distant. No respiratory distress. No Wheezing/Rales/Cough, RA GI: Soft. Bowel sounds are normal. Nontender. Nondistended. Morbid obesity : No Suprapubic tenderness EXTREMITES: No cyanosis, clubbing; positive for history of left total knee arthroplasty. History of right total hip arthroplasty. Left total hip arthroplasty with incision with minimal erythema, overall improved, no pain, no drainage. Left greater than right lower extremity edema DERM: Skin is warm and dry. No rash noted MUSCULARSKELETAL: No septic arthritis noted NEUROLOGIC: Alert and communicative LAB RESULTS: WBC (WHITE BLOOD COUNT) Date/Time Value Ref Range Status 02/03/2024 05:52 AM 6.3 3.6 - 11.0 10*3/uL Final 02/02/2024 05:14 AM 6.0 3.6 - 11.0 10*3/uL Final 02/01/2024 04:34 AM 5.8 3.6 - 11.0 10*3/uL Final 01/31/2024 06:12 AM 5.1 3.6 - 11.0 10*3/uL Final 01/30/2024 04:15 AM 5.3 3.6 - 11.0 10*3/uL Final 01/29/2024 05:38 AM 4.7 3.6 - 11.0 10*3/uL Final 01/28/2024 06:43 AM 5.1 3.6 - 11.0 10*3/uL Final HEMOGLOBIN (HGB) Date/Time Value Ref Range Status 02/03/2024 05:52 AM 10.7 (L) 12.0 - 16.0 G/DL Final 02/02/2024 05:14 AM 10.5 (L) 12.0 - 16.0 G/DL Final 02/01/2024 04:34 AM 10.6 (L) 12.0 - 16.0 G/DL Final 01/31/2024 06:12 AM 10.0 (L) 12.0 - 16.0 G/DL Final 01/30/2024 04:15 AM 10.3 (L) 12.0 - 16.0 G/DL Final 01/29/2024 05:38 AM 10.0 (L) 12.0 - 16.0 G/DL Final 01/28/2024 06:43 AM 10.6 (L) 12.0 - 16.0 G/DL Final HEMATOCRIT (HCT) Date/Time Value Ref Range Status 02/03/2024 05:52 AM 31.8 (L) 36.0 - 48.0 % Final 02/02/2024 05:14 AM 31.1 (L) 36.0 - 48.0 % Final 02/01/2024 04:34 AM 31.4 (L) 36.0 - 48.0 % Final 01/31/2024 06:12 AM 29.3 (L) 36.0 - 48.0 % Final 01/30/2024 04:15 AM 29.9 (L) 36.0 - 48.0 % Final 01/29/2024 05:38 AM 29.3 (L) 36.0 - 48.0 % Final 01/28/2024 06:43 AM 31.3 (L) 36.0 - 48.0 % Final PLATELET COUNT Date/Time Value Ref Range Status 02/03/2024 05:52 AM 472 (H) 130 - 400 10*3/uL Final 02/02/2024 05:14 AM 429 (H) 130 - 400 10*3/uL Final 02/01/2024 04:34 AM 479 (H) 130 - 400 10*3/uL Final 01/31/2024 06:12 AM 439 (H) 130 - 400 10*3/uL Final 01/30/2024 04:15 AM 466 (H) 130 - 400 10*3/uL Final 01/29/2024 05:38 AM 438 (H) 130 - 400 10*3/uL Final 01/28/2024 06:43 AM 470 (H) 130 - 400 10*3/uL Final POTASSIUM Date/Time Value Ref Range Status 02/03/2024 05:52 AM 4.4 3.5 - 5.1 MMOL/L Final 02/02/2024 05:14 AM 4.2 3.5 - 5.1 MMOL/L Final 02/01/2024 04:34 AM 4.4 3.5 - 5.1 MMOL/L Final 01/31/2024 06:12 AM 4.5 3.5 - 5.1 MMOL/L Final 01/30/2024 04:15 AM 4.4 3.5 - 5.1 MMOL/L Final 01/29/2024 05:38 AM 4.2 3.5 - 5.1 MMOL/L Final 01/28/2024 06:43 AM 4.4 3.5 - 5.1 MMOL/L Final CHLORIDE Date/Time Value Ref Range Status 02/03/2024 05:52 AM 104 98 - 107 MMOL/L Final Comment: Please note: Triglyceride levels of 600mg/dL or higher may positively bias chloride results by approximately 2.1 mmol 02/02/2024 05:14 AM 103 98 - 107 MMOL/L Final Comment: Please note: Triglyceride levels of 600mg/dL or higher may positively bias chloride results by approximately 2.1 mmol 02/01/2024 04:34 AM 103 98 - 107 MMOL/L Final Comment: Please note: Triglyceride levels of 600mg/dL or higher may positively bias chloride results by approximately 2.1 mmol 01/31/2024 06:12 AM 102 98 - 107 MMOL/L Final Comment: Please note: Triglyceride levels of 600mg/dL or higher may positively bias chloride results by approximately 2.1 mmol 01/30/2024 04:15 AM 101 98 - 107 MMOL/L Final Comment: Please note: Triglyceride levels of 600mg/dL or higher may positively bias chloride results by approximately 2.1 mmol 01/29/2024 05:38 AM 101 98 - 107 MMOL/L Final Comment: Please note: Triglyceride levels of 600mg/dL or higher may positively bias chloride results by approximately 2.1 mmol 01/28/2024 06:43 AM 100 98 - 107 MMOL/L Final Comment: Please note: Triglyceride levels of 600mg/dL or higher may positively bias chloride results by approximately 2.1 mmol CARBON DIOXIDE (CO2) Date/Time Value Ref Range Status 02/03/2024 05:52 AM 29 22 - 30 MMOL/L Final 02/02/2024 05:14 AM 30 22 - 30 MMOL/L Final 02/01/2024 04:34 AM 28 22 - 30 MMOL/L Final 01/31/2024 06:12 AM 33 (H) 22 - 30 MMOL/L Final 01/30/2024 04:15 AM 31 (H) 22 - 30 MMOL/L Final 01/29/2024 05:38 AM 30 22 - 30 MMOL/L Final 01/28/2024 06:43 AM 33 (H) 22 - 30 MMOL/L Final Glucose Date/Time Value Ref Range Status 02/03/2024 05:52 AM 100 70 - 100 MG/DL Final Comment: NORMAL <100 mg/dL PREDIABETES 101-126 mg/dL DIABETES 126 mg/dL or higher 02/02/2024 05:14 AM 103 (H) 70 - 100 MG/DL Final Comment: NORMAL <100 mg/dL PREDIABETES 101-126 mg/dL DIABETES 126 mg/dL or higher 02/01/2024 04:34 AM 98 70 - 100 MG/DL Final Comment: NORMAL <100 mg/dL PREDIABETES 101-126 mg/dL DIABETES 126 mg/dL or higher 01/31/2024 06:12 AM 94 70 - 100 MG/DL Final Comment: NORMAL <100 mg/dL PREDIABETES 101-126 mg/dL DIABETES 126 mg/dL or higher 01/30/2024 04:15 AM 93 70 - 100 MG/DL Final Comment: NORMAL <100 mg/dL PREDIABETES 101-126 mg/dL DIABETES 126 mg/dL or higher 01/29/2024 05:38 AM 94 70 - 100 MG/DL Final Comment: NORMAL <100 mg/dL PREDIABETES 101-126 mg/dL DIABETES 126 mg/dL or higher 01/28/2024 06:43 AM 86 70 - 100 MG/DL Final Comment: NORMAL <100 mg/dL PREDIABETES 101-126 mg/dL DIABETES 126 mg/dL or higher BUN Date/Time Value Ref Range Status 02/03/2024 05:52 AM 17 7 - 20 MG/DL Final 02/02/2024 05:14 AM 18 7 - 20 MG/DL Final 02/01/2024 04:34 AM 14 7 - 20 MG/DL Final 01/31/2024 06:12 AM 12 7 - 20 MG/DL Final 01/30/2024 04:15 AM 10 7 - 20 MG/DL Final 01/29/2024 05:38 AM 9 7 - 20 MG/DL Final 01/28/2024 06:43 AM 11 7 - 20 MG/DL Final CREATININE SERUM Date/Time Value Ref Range Status 02/03/2024 05:52 AM 0.90 0.7 - 1.2 MG/DL Final 02/02/2024 05:14 AM 0.90 0.7 - 1.2 MG/DL Final 02/01/2024 04:34 AM 0.90 0.7 - 1.2 MG/DL Final 01/31/2024 06:12 AM 1.10 0.7 - 1.2 MG/DL Final 01/30/2024 04:15 AM 1.00 0.7 - 1.2 MG/DL Final 01/29/2024 05:38 AM 0.80 0.7 - 1.2 MG/DL Final 01/28/2024 06:43 AM 0.80 0.7 - 1.2 MG/DL Final Albumin Date/Time Value Ref Range Status 01/31/2024 06:12 AM 3.0 (L) 3.5 - 5.0 G/DL Final 01/23/2024 04:37 AM 2.6 (L) 3.5 - 5.0 G/DL Final 01/17/2024 04:31 AM 2.6 (L) 3.5 - 5.0 G/dl Final 12/16/2023 12:35 PM 4.0 3.5 - 5.0 G/dl Final CALCIUM Date/Time Value Ref Range Status 02/03/2024 05:52 AM 9.1 8.4 - 10.2 MG/DL Final 02/02/2024 05:14 AM 8.9 8.4 - 10.2 MG/DL Final 02/01/2024 04:34 AM 8.9 8.4 - 10.2 MG/DL Final 01/31/2024 06:12 AM 8.7 8.4 - 10.2 MG/DL Final 01/30/2024 04:15 AM 8.6 8.4 - 10.2 MG/DL Final 01/29/2024 05:38 AM 8.3 (L) 8.4 - 10.2 MG/DL Final 01/28/2024 06:43 AM 8.8 8.4 - 10.2 MG/DL Final ALKALINE PHOSPHATASE Date/Time Value Ref Range Status 01/31/2024 06:12 AM 107 38 - 126 IU/L Final 01/23/2024 04:37 AM 99 38 - 126 IU/L Final 12/16/2023 12:35 PM 89 38 - 126 IU/L Final AST Date/Time Value Ref Range Status 01/31/2024 06:12 AM 26 14 - 36 IU/L Final 01/23/2024 04:37 AM 25 14 - 36 IU/L Final 12/16/2023 12:35 PM 25 14 - 36 IU/L Final BILIRUBIN, TOTAL Date/Time Value Ref Range Status 01/31/2024 06:12 AM 0.2 0.2 - 1.3 MG/DL Final 01/23/2024 04:37 AM 0.3 0.2 - 1.3 MG/DL Final 12/16/2023 12:35 PM 0.3 0.2 - 1.3 MG/DL Final ANION GAP Date/Time Value Ref Range Status 02/03/2024 05:52 AM 2 (L) 8 - 16 MMOL/L Final 02/02/2024 05:14 AM 1 (L) 8 - 16 MMOL/L Final 02/01/2024 04:34 AM 2 (L) 8 - 16 MMOL/L Final 01/31/2024 06:12 AM NEG 1 8 - 16 MMOL/L Final 01/30/2024 04:15 AM 3 (L) 8 - 16 MMOL/L Final 01/29/2024 05:38 AM 3 (L) 8 - 16 MMOL/L Final 01/28/2024 06:43 AM 3 (L) 8 - 16 MMOL/L Final ALT Date/Time Value Ref Range Status 01/31/2024 06:12 AM 13 <35 IU/L Final 01/23/2024 04:37 AM 10 <35 IU/L Final 12/16/2023 12:35 PM 16 <35 IU/L Final ESTIMATED GFR, NON AMER Date/Time Value Ref Range Status 02/03/2024 05:52 AM 64 ml/min/1.73sq.m Final 02/02/2024 05:14 AM 64 ml/min/1.73sq.m Final 02/01/2024 04:34 AM 64 ml/min/1.73sq.m Final 01/31/2024 06:12 AM 51 ml/min/1.73sq.m Final 01/30/2024 04:15 AM 57 ml/min/1.73sq.m Final 01/29/2024 05:38 AM 73 ml/min/1.73sq.m Final 01/28/2024 06:43 AM 73 ml/min/1.73sq.m Final ESTIMATED GFR, Date/Time Value Ref Range Status 02/03/2024 05:52 AM 77 ml/min/1.73sq.m Final 02/02/2024 05:14 AM 77 ml/min/1.73sq.m Final 02/01/2024 04:34 AM 77 ml/min/1.73sq.m Final 01/31/2024 06:12 AM 61 ml/min/1.73sq.m Final 01/30/2024 04:15 AM 68 ml/min/1.73sq.m Final 01/29/2024 05:38 AM 89 ml/min/1.73sq.m Final 01/28/2024 06:43 AM 89 ml/min/1.73sq.m Final GFR COMMENT Date/Time Value Ref Range Status 02/03/2024 05:52 AM Average GFR for 70+ years old = 75. Final Comment: Chronic Kidney disease, GFR = <60. Kidney failure, GFR = <15. The GFR estimate is not adjusted for extreme body surface area or acute process, nor has it been validated for women or ethnic groups other than and . CBC Lab Results Component Value Date WBC 6.3 02/03/2024 HGB 10.7 (L) 02/03/2024 HCT 31.8 (L) 02/03/2024 PLATELET 472 (H) 02/03/2024 MCV 95.8 02/03/2024 EDIF Lab Results Component Value Date RBCDISTRIBU 15.0 (H) 02/03/2024 EOSINOPHILS 3.4 02/03/2024 EOSINOPHILS 0.2 02/03/2024 BASOPHILS 1.2 02/03/2024 BASOPHILS 0.1 02/03/2024 LYMPHOCYTABS 1.6 02/03/2024 PLATELET 472 (H) 02/03/2024 MPV 6.4 (L) 02/03/2024 Lab Results Component Value Date SODIUM 135 (L) 02/03/2024 POTASSIUM 4.4 02/03/2024 CHLORIDE 104 02/03/2024 CO2 29 02/03/2024 BUN 17 02/03/2024 CREATSERUM 0.90 02/03/2024 GLUCOSE 100 02/03/2024 Micro C difficile stool 01/23- Urine culture 01/20- 01/20 Nares - 12/16/2023 positive nares test for MSSA 12/15 urine test positive for Klebsiella only resistant to ampicillin and Macrobid XR CHEST 1 VIEW PORTABLE Final Result IMPRESSION: 1. Cardiomegaly. 2. Aortic tortuosity. 3. Minor effusion in the left lung base is suspected. 4. Both lungs are expanded. I am not seeing any obvious displaced fracture although detail is limited. There are accentuated interstitial markings which may well be chronic. ASSESSMENT AND PLAN . Cuate Goodman 83 y.o. with a history of multiple medical problems including DVT/PE, morbid obesity, degenerative joint disease presents with left hip pain undergoing left total hip arthroplasty on 01/10 showing degenerative changes Left total hip arthroplasty, concern for superficial wound infection -history of development of erythema around the incision site on 01/18 or 01/19 without systemic signs of infection -No drainage for wound cx -perioperative nares culture was positive for MSSA, repeat culture 01/20 negative -antibiotic therapy will be given especially in the setting of underlying hardware in the postop period to try to prevent any spread of superficial infection to deeper areas of hardware and this was discussed with her and all questions answered -s/p zyvox 01/20-01/26 -s/p Septra 01/26-01/29 -s/p mupirocin twice daily, 01/22-01/26 -recommend avoiding any rubbing of the undergarments, discussed with nursing -status post 10 day course of antibiotics, discontinued on 01/29. -overall slowly healing without clear evidence of infection -Betadine to Wound incision per orthopedics -x-ray shows good position of hardware History of Klebsiella positive urine culture -urinalysis 12/15 with too numerous to count white cells and +3 bacteria -history of Klebsiella positive urine culture in November of 2023 only resistant to ampicillin and Macrobid -patient denies any urinary symptoms and UA bland, culture 01/20 negative Inflammatory markers -check Trends -CRP 58, 42, 46, 33, 28, 28, 30, 28, 25, 27, 26, 26, 21 -ESR 71 -CRP trends improving/stable Anemia -hemoglobin 9.5, 10.7, 10, 10.1, 10.1, 9.8, 10.3, 10.6, 10, 10.3, 10, 10.6, 10.5, 10.7 -previous anemia workup in November of 2022 was negative with normal iron, B12 and folate studies -Fe 37 -hemoglobin stable Thrombocytosis -platelets 440, 438, 470, 438, 466, 439, 479, 429, 472 -while this could have been reactive, continues to be elevated raising the possibility of the central thrombocytosis or hematology issue. We will continue to follow and if remains elevated would recommend Hematology referral Healthcare maintenance -hemoglobin A1c normal at 5.7 on 12/15 History of DVT/PE -anticoagulation per primary team Disposition -ongoing PT/OT Diarrhea, history -C diff testing and GI pathogen panel negative -probiotic prescribed. -suspicious for a viral process -Resolved Nausea/poor appetite -lipase, LFTs were not abnormal 01/30 -pre albumin low at 11.9 -encourage p.o. intake, protein shakes Hx of Mild oral thrush -s/p nystatin swish and swallow, resolved Janet Moreno MD Met with Cuate for discharge planning. Cuate reports wanting to transfer to a facility closer to my family if she is expected to remain in swing-bed for longer than a couple of more weeks. Cuate states if it is going to be a week or two, then I will stay here. MATT informs Cuate that her insurance review was 01/31/24 and determination is still pending. Cuate agreeable for hospital social worker to update her once insurance determination is known. CM will continue to follow. MATT Suarez 02/03/2024 8:17 AM DAILY PROGRESS NOTE Admit Date: 01/19/2024 Date of Evaluation: 0:41 PM [facility] LOS: 14 days IMPRESSION AND PLAN: 83 y.o. 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 1) Severe left hip arthritis s/p total hip arthroplasty PT/OT Continue with eliquis Continue with flexeril Continue with norco PRN Continue with senokot PRN Continue with tramadol PRN Encourage compliance with PT/OT. 2) Chronic normocytic anemia H and H 9.8 -> 9.5 -> 10.7 -> 10.0 -> 10.1 -> 9.8 -> 10.3 -> 10.6 -> 10.0 -> 10.3 -> 10.0 -> 10.6 -> 10.5 and 29.2 -> 27.7 -> 31.8 -> 29.1 -> 29.3 -> 29.4 -> 29.0 -> 30.7 -> 31.3 -> >29.3 -> 29.9 -> 29.3 -> 31.4 -> 31.1 Fe 29, TIBC 144, transferrin 20 Continue with iron Serial CBC 3) Gout Currently on allopurinol 4) GERD Currently on protonix. 5) Diarrhea Probably viral C. Diff is negative GI panel is negative. Workup is negative to-date Supportive care. Monitor for hypotension Monitor for hypokalemia Improved. 6) Cellulitis Antibiotic therapy will be given especially in the setting of underlying hardware in the postop period to try to prevent any spread of superficial infection to deeper areas of hardware CRP 58.3 -> 33.6 -> 28.4 -> 30.5 -> 28.9 -> 25.8 -> 26.1 -> 26.3, stable. Finished a course of linezolid Finished a course of bactrobran Finished a course of bactrim DS BID. Continue with nystatin Encourage PO intake. Followed by ID 7) HTN SBP 120/90s Continue with lisinopril. 8) Mild oral thrush Nystatin swish and swallow, continue symptomatic treatment of lip dryness SUBJECTIVE: Patient seen and examined. Chart, medications, labs reviewed. Office Visit on 02/02/2024 Component Date Value Ref Range Status BSA 02/02/2024 2.18 m2 In process LABS Labs-ABGs Labs-CBC @[id number]@ Labs-Chem 7([facility]) Bun/Creat/Cl/CO2/Glucose: 18/0.90/103/30/103 (02/01 514) Na/K+/Phos/Mg/Ca: 134/4.2/--/--/8.9 (02/01 514) Labs-Coags WBC (WHITE BLOOD COUNT) Date Value Ref Range Status 02/02/2024 6.0 3.6 - 11.0 10*3/uL Final 02/01/2024 5.8 3.6 - 11.0 10*3/uL Final 01/31/2024 5.1 3.6 - 11.0 10*3/uL Final HEMOGLOBIN (HGB) Date Value Ref Range Status 02/02/2024 10.5 (L) 12.0 - 16.0 G/DL Final 02/01/2024 10.6 (L) 12.0 - 16.0 G/DL Final 01/31/2024 10.0 (L) 12.0 - 16.0 G/DL Final HEMATOCRIT (HCT) Date Value Ref Range Status 02/02/2024 31.1 (L) 36.0 - 48.0 % Final 02/01/2024 31.4 (L) 36.0 - 48.0 % Final 01/31/2024 29.3 (L) 36.0 - 48.0 % Final PLATELET COUNT Date Value Ref Range Status 02/02/2024 429 (H) 130 - 400 10*3/uL Final 02/01/2024 479 (H) 130 - 400 10*3/uL Final 01/31/2024 439 (H) 130 - 400 10*3/uL Final SODIUM Date Value Ref Range Status 02/02/2024 134 (L) 137 - 145 MMOL/L Final 02/01/2024 133 (L) 137 - 145 MMOL/L Final 01/31/2024 134 (L) 137 - 145 MMOL/L Final CHLORIDE Date Value Ref Range Status 02/02/2024 103 98 - 107 MMOL/L Final Comment: Please note: Triglyceride levels of 600mg/dL or higher may positively bias chloride results by approximately 2.1 mmol 02/01/2024 103 98 - 107 MMOL/L Final Comment: Please note: Triglyceride levels of 600mg/dL or higher may positively bias chloride results by approximately 2.1 mmol 01/31/2024 102 98 - 107 MMOL/L Final Comment: Please note: Triglyceride levels of 600mg/dL or higher may positively bias chloride results by approximately 2.1 mmol BUN Date Value Ref Range Status 02/02/2024 18 7 - 20 MG/DL Final 02/01/2024 14 7 - 20 MG/DL Final 01/31/2024 12 7 - 20 MG/DL Final POTASSIUM Date Value Ref Range Status 02/02/2024 4.2 3.5 - 5.1 MMOL/L Final 02/01/2024 4.4 3.5 - 5.1 MMOL/L Final 01/31/2024 4.5 3.5 - 5.1 MMOL/L Final CREATININE SERUM Date Value Ref Range Status 02/02/2024 0.90 0.7 - 1.2 MG/DL Final 02/01/2024 0.90 0.7 - 1.2 MG/DL Final 01/31/2024 1.10 0.7 - 1.2 MG/DL Final Glucose Date Value Ref Range Status 02/02/2024 103 (H) 70 - 100 MG/DL Final Comment: NORMAL <100 mg/dL PREDIABETES 101-126 mg/dL DIABETES 126 mg/dL or higher 02/01/2024 98 70 - 100 MG/DL Final Comment: NORMAL <100 mg/dL PREDIABETES 101-126 mg/dL DIABETES 126 mg/dL or higher 01/31/2024 94 70 - 100 MG/DL Final Comment: NORMAL <100 mg/dL PREDIABETES 101-126 mg/dL DIABETES 126 mg/dL or higher PT Date Value Ref Range Status 01/11/2024 14.2 11.8 - 14.4 SEC Final 12/16/2023 17.9 (H) 11.8 - 14.4 SEC Final PROTEIN, TOTAL Date Value Ref Range Status 01/31/2024 6.1 (L) 6.3 - 8.2 GM/DL Final 01/23/2024 5.6 (L) 6.3 - 8.2 GM/DL Final 12/16/2023 7.2 6.3 - 8.2 GM/DL Final Albumin Date Value Ref Range Status 01/31/2024 3.0 (L) 3.5 - 5.0 G/DL Final 01/23/2024 2.6 (L) 3.5 - 5.0 G/DL Final 01/17/2024 2.6 (L) 3.5 - 5.0 G/dl Final AST Date Value Ref Range Status 01/31/2024 26 14 - 36 IU/L Final 01/23/2024 25 14 - 36 IU/L Final 12/16/2023 25 14 - 36 IU/L Final ALT Date Value Ref Range Status 01/31/2024 13 <35 IU/L Final 01/23/2024 10 <35 IU/L Final 12/16/2023 16 <35 IU/L Final BILIRUBIN, TOTAL Date Value Ref Range Status 01/31/2024 0.2 0.2 - 1.3 MG/DL Final CALCIUM Date Value Ref Range Status 02/02/2024 8.9 8.4 - 10.2 MG/DL Final 02/01/2024 8.9 8.4 - 10.2 MG/DL Final 01/31/2024 8.7 8.4 - 10.2 MG/DL Final PHOSPHORUS Date Value Ref Range Status 01/17/2024 2.6 2.5 - 4.5 MG/DL Final Lab Results Component Value Date CREATSERUM 0.90 02/02/2024 BUN 18 02/02/2024 SODIUM 134 (L) 02/02/2024 POTASSIUM 4.2 02/02/2024 CHLORIDE 103 02/02/2024 CO2 30 02/02/2024 ROS: Constitution: No fever, no chill HEENT: No headache, no sinus issues CV: No chest pain, no palpitation Lung: No cough, No SOB Abd: No diarrhea, no constipation Neuro: No seizure, no loss of consciousness Heme: No bleeding, no bruise PHYSICAL EXAM: Wt Readings from Last 3 Encounters: 02/02/24 109.6 kg (241 lb 9.6 oz) 02/02/24 109.3 kg (241 lb) 12/08/23 103 kg (227 lb) Temp Readings from Last 3 Encounters: 02/02/24 98.6 F (37 C) (Oral) 02/02/24 98.8 F (37.1 C) (Temporal) 01/19/24 98.2 F (36.8 C) (Temporal) BP Readings from Last 3 Encounters: 02/02/24 119/64 01/19/24 137/62 12/16/23 135/89 Pulse Readings from Last 3 Encounters: 02/02/24 95 01/19/24 89 12/16/23 73 Gen: NAD, lying in bed, conversant HEENT: Atraumatic, PERRLA, moist membrane CV: RRR, nl S1 and S2, no m/g/r Lung: CTAB, no wheezing, no crackle Abd: +BS, nontender, no distended Ext: No rash, no clubbing, no cyanosis. No edema. Neuro: CNII-XII grossly intact, 5/5 strength, normal tone Skin: Warm and dry 02/02/24 1445 Time In/Out Time In 1445 PT Therapy Completed Attempted Attempted Reason Patient declined session (Pt reports having pain and waiting for pain pill and is refusing to participate.) Initial Evaluation/Screen Completed? yes 02/02/24 1005 Occupational Therapy Minutes Start Time 0932 Stop Time 1005 Time Calculation 33 OT Individual Minutes 33 minutes General Pain Documentation (Adult, OB, Peds) Presence of Pain reports pain/discomfort Pain Location leg, left Pain Management Interventions (nsg dispenses meds) DVPRS (Defense and Veterans Pain Rating Scale) DVPRS: Rest 5- moderate pain Shower/Bathe Self Assistance Needed Physical assistance Physical Assistance Level 25% or less Comment Pt min a for cleansing periarea in standing. Nsg present to apply medicated powder to red areas. CARE Score - Shower/Bathe Self 3 Upper Body Dressing Assistance Needed Set-up / clean-up;Supervision CARE Score - Upper Body Dressing 4 Lower Body Dressing Assistance Needed Physical assistance Physical Assistance Level 26%-50% CARE Score - Lower Body Dressing 3 Pt seated in bedside chair upon arrival. Pt has water basin for washing up before leaving facility for dr cuellar. Pt seen for ADL training (see above). Pt brushes hair with set up and S. Pt sit to stand transfers with CGA. Pt left with chair alarm flashing green with all needs met. Continue OT per POC ROBER Alvarado Infectious Disease progress note SUBJECTIVE History of Present Illness: Cuate Goodman 83 y.o. female with a history of left degenerative hip disease with ongoing left hip pain with reported decreased quality of life due to this condition. The patient was seen by Orthopedics and Dr. Heredia performed surgery 01/10 with a left total hip arthroplasty. Total hip arthroplastic surgery on 01/10 did not have noted complications or infectious issues per chart review. The patient was subsequently discharged after an admission from 01/10-01/18 on the med surg unit without stated ID issue. There was no antibiotics at time of discharge. Pathology from knee replacement surgery showed consistent with degenerative joint disease without mention of infection. Has history of previous right total hip arthroplasty and left total knee arthroplasty noted. Past medical history also includes obesity, degenerative joint disease and history of DVT and PE. Additional history includes right bundle-branch block, diastolic dysfunction, B12 deficiency, impaired fasting glucose with normal preoperative A1c, elevated uric acid level, GERD, urinary incontinence, history of abdominal aortic aneurysm. Patient does have a history of penicillin allergy resulting in hives but no other allergies to antibiotics noted. The patient denies any tobacco, alcohol or drug use. No prior use reported. Patient was subsequently admitted swing bed for rehabilitation on 01/18. Patient underwent pain control, PT/OT and ongoing medical management. Patient was noted to have erythema that began around her left hip site approximately on 01/18 or 01/19 per nursing report. There has been no described drainage from her hip. Patient denies any specific areas pain in her hip joint. There is no reported fevers or chills or night sweats at time of initial consultation. The patient denies any new respiratory, abdominal or urinary symptoms. Specifically she denies any UTI symptoms Infectious disease consult 01/21/2024, patient began on Zyvox for superficial postop infection, Interval events: 24 hour events reviewed. Patient continues to complain of poor appetite but states she is trying. Still using protein shakes and patient's family is bringing in food. Patient states that otherwise her hip is feeling good and that she is ambulating better. No drainage reported. Patient currently off of antibiotics and feeling well. CRP is overall stable. No new respiratory, abdominal or urinary symptoms. Thrush is improving and soreness of mouth and lips are improving. ROS A complete review of systems are negative except those consistent with HPI OBJECTIVE Past Medical History: Diagnosis Date Aortic aneurysm Arthritis Deep vein thrombosis (DVT) GERD (gastroesophageal reflux disease) Past Medical History: Diagnosis Date Aortic aneurysm Arthritis Deep vein thrombosis (DVT) GERD (gastroesophageal reflux disease) Past Surgical History: Procedure Laterality Date ARTHROPLASTY HIP TOTAL Left 01/11/2024 Laterality: Left; Surgeon: Erik Heredia MD; Location: [facility] OR NEPHRECTOMY Right 1978 CHOLECYSTECTOMY HIP REPLACEMENT Right HYSTERECTOMY KNEE REPLACEMENT Bilateral left x 2 LITHOTRIPSY multiple Patient Active Problem List Diagnosis S/P total hip arthroplasty Gout Aneurysm of ascending aorta without rupture Aneurysmal dilatation Closed fracture of hand Fracture of metacarpal bone Gastro-esophageal reflux disease without esophagitis Hypomagnesemia Lumbar spondylosis Mixed stress and urge urinary incontinence Morbid (severe) obesity due to excess calories Other disorders of plasma-protein metabolism, not elsewhere classified Pulmonary embolism Solitary kidney, acquired Thoracic aortic ectasia Unilateral primary osteoarthritis, left hip Unsteadiness on feet S/P total left hip arthroplasty Social History Socioeconomic History Marital status: Single Spouse name: Not on file Number of children: Not on file Years of education: Not on file Highest education level: Not on file Occupational History Not on file Tobacco Use Smoking status: Never Smokeless tobacco: Never Substance and Sexual Activity Alcohol use: Never Drug use: Never Sexual activity: Not on file Other Topics Concern Not on file Social History Narrative Not on file Social Determinants of Health Financial Resource Strain: Low Risk (01/21/2024) Overall Financial Resource Strain (CARDIA) Difficulty of Paying Living Expenses: Not very hard Food Insecurity: No Food Insecurity (01/21/2024) Hunger Vital Sign Worried About Running Out of Food in the Last Year: Never true Ran Out of Food in the Last Year: Never true Transportation Needs: No Transportation Needs (01/21/2024) PRAPARE - Transportation Lack of Transportation (Medical): No Lack of Transportation (Non-Medical): No Physical Activity: Not on file Stress: Not on file Social Connections: Not on file Intimate Partner Violence: Not At Risk (01/21/2024) Humiliation, Afraid, Rape, and Kick questionnaire Fear of Current or Ex-Partner: No Emotionally Abused: No Physically Abused: No Sexually Abused: No Housing Stability: Low Risk (01/21/2024) Housing Stability Vital Sign Unable to Pay for Housing in the Last Year: No Number of Places Lived in the Last Year: 1 Unstable Housing in the Last Year: No Current Facility-Administered Medications: Acetaminophen (TYLENOL) tablet 650 mg, 650 mg, Oral, Q4H PRN, Mohan Gomez MD, 650 mg at 02/02/24 09 Allopurinol (ZYLOPRIM) tablet 100 mg, 100 mg, Oral, Daily, Mohan Gomez MD, 100 mg at 02/02/24 0836 apixaban (ELIQUIS) tablet 5 mg, 5 mg, Oral, Q12H, Mohan Gomez MD, 5 mg at 02/02/24 0836 bisacodyl (DULCOLAX) suppository 10 mg, 10 mg, Rectal, Daily PRN, Mohan Gomez MD Cyclobenzaprine (FLEXERIL) tablet 5 mg, 5 mg, Oral, Q12H, Mohan Gomez MD, 5 mg at 02/02/24 08 Docusate (COLACE) capsule 100 mg, 100 mg, Oral, Q12H, Mohan Gomez MD, 100 mg at 02/02/24 0836 ferrous sulfate tablet 325 mg, 325 mg, Oral, Daily, Mohan Gomez MD, 325 mg at 02/02/24 0836 hydroCODone-acetaminophen (NORCO) 5-325 MG per tablet 1 tablet, 1 tablet, Oral, Q4H PRN, Mohan Gomez MD, 1 tablet at 02/01/24 1016 hydroCODone-acetaminophen (NORCO) 5-325 MG per tablet 2 tablet, 2 tablet, Oral, Q4H PRN, Mohan Gomez MD, 2 tablet at 02/02/24 1448 lactulose (CHRONULAC) oral solution 20 g, 20 g, Oral, TID PRN, Mohan Gomez MD Lisinopril (PRINIVIL) tablet 5 mg, 5 mg, Oral, Daily, Mohan Gomez MD, 5 mg at 02/02/24 0835 multivitamin tablet 1 tablet, 1 tablet, Oral, Daily, Mohan Gomez MD, 1 tablet at 02/02/24 0835 Nystatin (MYCOSTATIN) oral suspension 500,000 Units, 500,000 Units, Swish & Swallow, 4x daily, Janet Moreno MD, 500,000 Units at 02/02/24 0835 Ondansetron (ZOFRAN) tablet 4 mg, 4 mg, Oral, Q4H PRN, Mohan Gomez MD, 4 mg at 02/02/24 0840 Pantoprazole (PROTONIX) tablet DR 40 mg, 40 mg, Oral, Daily, Mohan Gomez MD, 40 mg at 02/02/24 0836 Polyethylene glycol (MIRALAX) packet 17 g, 17 g, Oral, Q12H, Mohan Gomez MD, 17 g at 01/30/242043 Polyethylene glycol (MIRALAX) packet 17 g, 17 g, Oral, TID PRN, Mohan Gomez MD senna-docusate (SENOKOT-S) 8.6-50 MG per tablet 2 tablet, 2 tablet, Oral, Q12H, Mohan Gomez MD, 2 tablet at 01/30/242043 Tolterodine (DETROL-LA) capsule XL 4 mg, 4 mg, Oral, Daily, Mohan Gomez MD, 4 mg at 02/02/24 0835 Zolpidem (AMBIEN) tablet 5 mg, 5 mg, Oral, QHS PRN, Mohan Gomez MD, 5 mg at 02/01/24 2306 Allergies Allergen Reactions Morphine Nausea and Vomiting Other Reaction(s): GI intolerance Oxycodone Nausea and Vomiting Other Reaction(s): GI intolerance Penicillins Hives Vitals: 02/01/24 1938 02/02/24 0500 02/02/24 0715 02/02/24 0800 BP: 126/58 119/71 Pulse: 86 89 Resp: 20 18 Temp: 98.2 degrees F (36.8 degrees C) 98 degrees F (36.7 degrees C) TempSrc: Oral Oral SpO2: 90% 90% 92% Weight: 109.6 kg (241 lb 9.6 oz) Height: Intake/Output Summary (Last 24 hours) at 02/02/2024 1554 Last data filed at 02/02/2024 0900 Gross per 24 hour Intake 480 ml Output -- Net 480 ml Physical Exam: CONSTITUTIONAL: Alert and Oriented, in no distress, afebrile HEENT: Normocephalic and atraumatic, Sclera anicteric, PERRL, mild thrush improving, dry lips improving and no visualized HSV lesions CARDIAC: Normal rate, regular rhythm, normal heart sounds and intact distal pulses, no murmurs/rubs/clicks/gallops RESP: Effort normal and breath sounds are normal, but distant. No respiratory distress. No Wheezing/Rales/Cough, RA GI: Soft. Bowel sounds are normal. Nontender. Nondistended. Morbid obesity : No Suprapubic tenderness EXTREMITES: No cyanosis, clubbing; positive for history of left total knee arthroplasty. History of right total hip arthroplasty. Left total hip arthroplasty with incision with surrounding erythema, overall improved, no pain, no drainage. Left greater than right lower extremity edema DERM: Skin is warm and dry. No rash noted MUSCULARSKELETAL: No arthritis noted NEUROLOGIC: Alert and communicative LAB RESULTS: WBC (WHITE BLOOD COUNT) Date/Time Value Ref Range Status 02/02/2024 05:14 AM 6.0 3.6 - 11.0 10*3/uL Final 02/01/2024 04:34 AM 5.8 3.6 - 11.0 10*3/uL Final 01/31/2024 06:12 AM 5.1 3.6 - 11.0 10*3/uL Final 01/30/2024 04:15 AM 5.3 3.6 - 11.0 10*3/uL Final 01/29/2024 05:38 AM 4.7 3.6 - 11.0 10*3/uL Final 01/28/2024 06:43 AM 5.1 3.6 - 11.0 10*3/uL Final 01/27/2024 04:37 AM 5.4 3.6 - 11.0 10*3/uL Final HEMOGLOBIN (HGB) Date/Time Value Ref Range Status 02/02/2024 05:14 AM 10.5 (L) 12.0 - 16.0 G/DL Final 02/01/2024 04:34 AM 10.6 (L) 12.0 - 16.0 G/DL Final 01/31/2024 06:12 AM 10.0 (L) 12.0 - 16.0 G/DL Final 01/30/2024 04:15 AM 10.3 (L) 12.0 - 16.0 G/DL Final 01/29/2024 05:38 AM 10.0 (L) 12.0 - 16.0 G/DL Final 01/28/2024 06:43 AM 10.6 (L) 12.0 - 16.0 G/DL Final 01/27/2024 04:37 AM 10.3 (L) 12.0 - 16.0 G/DL Final HEMATOCRIT (HCT) Date/Time Value Ref Range Status 02/02/2024 05:14 AM 31.1 (L) 36.0 - 48.0 % Final 02/01/2024 04:34 AM 31.4 (L) 36.0 - 48.0 % Final 01/31/2024 06:12 AM 29.3 (L) 36.0 - 48.0 % Final 01/30/2024 04:15 AM 29.9 (L) 36.0 - 48.0 % Final 01/29/2024 05:38 AM 29.3 (L) 36.0 - 48.0 % Final 01/28/2024 06:43 AM 31.3 (L) 36.0 - 48.0 % Final 01/27/2024 04:37 AM 30.7 (L) 36.0 - 48.0 % Final PLATELET COUNT Date/Time Value Ref Range Status 02/02/2024 05:14 AM 429 (H) 130 - 400 10*3/uL Final 02/01/2024 04:34 AM 479 (H) 130 - 400 10*3/uL Final 01/31/2024 06:12 AM 439 (H) 130 - 400 10*3/uL Final 01/30/2024 04:15 AM 466 (H) 130 - 400 10*3/uL Final 01/29/2024 05:38 AM 438 (H) 130 - 400 10*3/uL Final 01/28/2024 06:43 AM 470 (H) 130 - 400 10*3/uL Final 01/27/2024 04:37 AM 438 (H) 130 - 400 10*3/uL Final POTASSIUM Date/Time Value Ref Range Status 02/02/2024 05:14 AM 4.2 3.5 - 5.1 MMOL/L Final 02/01/2024 04:34 AM 4.4 3.5 - 5.1 MMOL/L Final 01/31/2024 06:12 AM 4.5 3.5 - 5.1 MMOL/L Final 01/30/2024 04:15 AM 4.4 3.5 - 5.1 MMOL/L Final 01/29/2024 05:38 AM 4.2 3.5 - 5.1 MMOL/L Final 01/28/2024 06:43 AM 4.4 3.5 - 5.1 MMOL/L Final 01/27/2024 04:37 AM 4.0 3.5 - 5.1 MMOL/L Final CHLORIDE Date/Time Value Ref Range Status 02/02/2024 05:14 AM 103 98 - 107 MMOL/L Final Comment: Please note: Triglyceride levels of 600mg/dL or higher may positively bias chloride results by approximately 2.1 mmol 02/01/2024 04:34 AM 103 98 - 107 MMOL/L Final Comment: Please note: Triglyceride levels of 600mg/dL or higher may positively bias chloride results by approximately 2.1 mmol 01/31/2024 06:12 AM 102 98 - 107 MMOL/L Final Comment: Please note: Triglyceride levels of 600mg/dL or higher may positively bias chloride results by approximately 2.1 mmol 01/30/2024 04:15 AM 101 98 - 107 MMOL/L Final Comment: Please note: Triglyceride levels of 600mg/dL or higher may positively bias chloride results by approximately 2.1 mmol 01/29/2024 05:38 AM 101 98 - 107 MMOL/L Final Comment: Please note: Triglyceride levels of 600mg/dL or higher may positively bias chloride results by approximately 2.1 mmol 01/28/2024 06:43 AM 100 98 - 107 MMOL/L Final Comment: Please note: Triglyceride levels of 600mg/dL or higher may positively bias chloride results by approximately 2.1 mmol 01/27/2024 04:37 AM 102 98 - 107 MMOL/L Final Comment: Please note: Triglyceride levels of 600mg/dL or higher may positively bias chloride results by approximately 2.1 mmol CARBON DIOXIDE (CO2) Date/Time Value Ref Range Status 02/02/2024 05:14 AM 30 22 - 30 MMOL/L Final 02/01/2024 04:34 AM 28 22 - 30 MMOL/L Final 01/31/2024 06:12 AM 33 (H) 22 - 30 MMOL/L Final 01/30/2024 04:15 AM 31 (H) 22 - 30 MMOL/L Final 01/29/2024 05:38 AM 30 22 - 30 MMOL/L Final 01/28/2024 06:43 AM 33 (H) 22 - 30 MMOL/L Final 01/27/2024 04:37 AM 30 22 - 30 MMOL/L Final Glucose Date/Time Value Ref Range Status 02/02/2024 05:14 AM 103 (H) 70 - 100 MG/DL Final Comment: NORMAL <100 mg/dL PREDIABETES 101-126 mg/dL DIABETES 126 mg/dL or higher 02/01/2024 04:34 AM 98 70 - 100 MG/DL Final Comment: NORMAL <100 mg/dL PREDIABETES 101-126 mg/dL DIABETES 126 mg/dL or higher 01/31/2024 06:12 AM 94 70 - 100 MG/DL Final Comment: NORMAL <100 mg/dL PREDIABETES 101-126 mg/dL DIABETES 126 mg/dL or higher 01/30/2024 04:15 AM 93 70 - 100 MG/DL Final Comment: NORMAL <100 mg/dL PREDIABETES 101-126 mg/dL DIABETES 126 mg/dL or higher 01/29/2024 05:38 AM 94 70 - 100 MG/DL Final Comment: NORMAL <100 mg/dL PREDIABETES 101-126 mg/dL DIABETES 126 mg/dL or higher 01/28/2024 06:43 AM 86 70 - 100 MG/DL Final Comment: NORMAL <100 mg/dL PREDIABETES 101-126 mg/dL DIABETES 126 mg/dL or higher 01/27/2024 04:37 AM 98 70 - 100 MG/DL Final Comment: NORMAL <100 mg/dL PREDIABETES 101-126 mg/dL DIABETES 126 mg/dL or higher BUN Date/Time Value Ref Range Status 02/02/2024 05:14 AM 18 7 - 20 MG/DL Final 02/01/2024 04:34 AM 14 7 - 20 MG/DL Final 01/31/2024 06:12 AM 12 7 - 20 MG/DL Final 01/30/2024 04:15 AM 10 7 - 20 MG/DL Final 01/29/2024 05:38 AM 9 7 - 20 MG/DL Final 01/28/2024 06:43 AM 11 7 - 20 MG/DL Final 01/27/2024 04:37 AM 11 7 - 20 MG/DL Final CREATININE SERUM Date/Time Value Ref Range Status 02/02/2024 05:14 AM 0.90 0.7 - 1.2 MG/DL Final 02/01/2024 04:34 AM 0.90 0.7 - 1.2 MG/DL Final 01/31/2024 06:12 AM 1.10 0.7 - 1.2 MG/DL Final 01/30/2024 04:15 AM 1.00 0.7 - 1.2 MG/DL Final 01/29/2024 05:38 AM 0.80 0.7 - 1.2 MG/DL Final 01/28/2024 06:43 AM 0.80 0.7 - 1.2 MG/DL Final 01/27/2024 04:37 AM 0.70 0.7 - 1.2 MG/DL Final Albumin Date/Time Value Ref Range Status 01/31/2024 06:12 AM 3.0 (L) 3.5 - 5.0 G/DL Final 01/23/2024 04:37 AM 2.6 (L) 3.5 - 5.0 G/DL Final 01/17/2024 04:31 AM 2.6 (L) 3.5 - 5.0 G/dl Final 12/16/2023 12:35 PM 4.0 3.5 - 5.0 G/dl Final CALCIUM Date/Time Value Ref Range Status 02/02/2024 05:14 AM 8.9 8.4 - 10.2 MG/DL Final 02/01/2024 04:34 AM 8.9 8.4 - 10.2 MG/DL Final 01/31/2024 06:12 AM 8.7 8.4 - 10.2 MG/DL Final 01/30/2024 04:15 AM 8.6 8.4 - 10.2 MG/DL Final 01/29/2024 05:38 AM 8.3 (L) 8.4 - 10.2 MG/DL Final 01/28/2024 06:43 AM 8.8 8.4 - 10.2 MG/DL Final 01/27/2024 04:37 AM 8.6 8.4 - 10.2 MG/DL Final ALKALINE PHOSPHATASE Date/Time Value Ref Range Status 01/31/2024 06:12 AM 107 38 - 126 IU/L Final 01/23/2024 04:37 AM 99 38 - 126 IU/L Final 12/16/2023 12:35 PM 89 38 - 126 IU/L Final AST Date/Time Value Ref Range Status 01/31/2024 06:12 AM 26 14 - 36 IU/L Final 01/23/2024 04:37 AM 25 14 - 36 IU/L Final 12/16/2023 12:35 PM 25 14 - 36 IU/L Final BILIRUBIN, TOTAL Date/Time Value Ref Range Status 01/31/2024 06:12 AM 0.2 0.2 - 1.3 MG/DL Final 01/23/2024 04:37 AM 0.3 0.2 - 1.3 MG/DL Final 12/16/2023 12:35 PM 0.3 0.2 - 1.3 MG/DL Final ANION GAP Date/Time Value Ref Range Status 02/02/2024 05:14 AM 1 (L) 8 - 16 MMOL/L Final 02/01/2024 04:34 AM 2 (L) 8 - 16 MMOL/L Final 01/31/2024 06:12 AM NEG 1 8 - 16 MMOL/L Final 01/30/2024 04:15 AM 3 (L) 8 - 16 MMOL/L Final 01/29/2024 05:38 AM 3 (L) 8 - 16 MMOL/L Final 01/28/2024 06:43 AM 3 (L) 8 - 16 MMOL/L Final 01/27/2024 04:37 AM 3 (L) 8 - 16 MMOL/L Final ALT Date/Time Value Ref Range Status 01/31/2024 06:12 AM 13 <35 IU/L Final 01/23/2024 04:37 AM 10 <35 IU/L Final 12/16/2023 12:35 PM 16 <35 IU/L Final ESTIMATED GFR, NON AMER Date/Time Value Ref Range Status 02/02/2024 05:14 AM 64 ml/min/1.73sq.m Final 02/01/2024 04:34 AM 64 ml/min/1.73sq.m Final 01/31/2024 06:12 AM 51 ml/min/1.73sq.m Final 01/30/2024 04:15 AM 57 ml/min/1.73sq.m Final 01/29/2024 05:38 AM 73 ml/min/1.73sq.m Final 01/28/2024 06:43 AM 73 ml/min/1.73sq.m Final 01/27/2024 04:37 AM 85 ml/min/1.73sq.m Final ESTIMATED GFR, Date/Time Value Ref Range Status 02/02/2024 05:14 AM 77 ml/min/1.73sq.m Final 02/01/2024 04:34 AM 77 ml/min/1.73sq.m Final 01/31/2024 06:12 AM 61 ml/min/1.73sq.m Final 01/30/2024 04:15 AM 68 ml/min/1.73sq.m Final 01/29/2024 05:38 AM 89 ml/min/1.73sq.m Final 01/28/2024 06:43 AM 89 ml/min/1.73sq.m Final 01/27/2024 04:37 AM 103 ml/min/1.73sq.m Final GFR COMMENT Date/Time Value Ref Range Status 02/02/2024 05:14 AM Average GFR for 70+ years old = 75. Final Comment: Chronic Kidney disease, GFR = <60. Kidney failure, GFR = <15. The GFR estimate is not adjusted for extreme body surface area or acute process, nor has it been validated for women or ethnic groups other than and . CBC Lab Results Component Value Date WBC 6.0 02/02/2024 HGB 10.5 (L) 02/02/2024 HCT 31.1 (L) 02/02/2024 PLATELET 429 (H) 02/02/2024 MCV 95.9 02/02/2024 EDIF Lab Results Component Value Date RBCDISTRIBU 15.2 (H) 02/02/2024 EOSINOPHILS 3.7 02/02/2024 EOSINOPHILS 0.2 02/02/2024 BASOPHILS 0.9 02/02/2024 BASOPHILS 0.1 02/02/2024 LYMPHOCYTABS 1.6 02/02/2024 PLATELET 429 (H) 02/02/2024 MPV 6.5 (L) 02/02/2024 Lab Results Component Value Date SODIUM 134 (L) 02/02/2024 POTASSIUM 4.2 02/02/2024 CHLORIDE 103 02/02/2024 CO2 30 02/02/2024 BUN 18 02/02/2024 CREATSERUM 0.90 02/02/2024 GLUCOSE 103 (H) 02/02/2024 Micro C difficile stool 01/23- Urine culture 01/20- 01/20 Nares - 12/16/2023 positive nares test for MSSA 12/15 urine test positive for Klebsiella only resistant to ampicillin and Macrobid XR CHEST 1 VIEW PORTABLE Final Result IMPRESSION: 1. Cardiomegaly. 2. Aortic tortuosity. 3. Minor effusion in the left lung base is suspected. 4. Both lungs are expanded. I am not seeing any obvious displaced fracture although detail is limited. There are accentuated interstitial markings which may well be chronic. ASSESSMENT AND PLAN . Cuate Goodman 83 y.o. with a history of multiple medical problems including DVT/PE, morbid obesity, degenerative joint disease presents with left hip pain undergoing left total hip arthroplasty on 01/10 showing degenerative changes Left total hip arthroplasty, concern for superficial wound infection -history of development of erythema around the incision site on 01/18 or 01/19 without systemic signs of infection -check wound culture if there is any drainage - none currently -perioperative nares culture was positive for MSSA, repeat culture 01/20 negative -antibiotic therapy will be given especially in the setting of underlying hardware in the postop period to try to prevent any spread of superficial infection to deeper areas of hardware and this was discussed with her and all questions answered -s/p zyvox 01/20-01/26 -s/p Septra 01/26-01/29 -s/p mupirocin twice daily, 01/22-01/26 -recommend avoiding any rubbing of the undergarments, discussed with nursing -status post 10 day course of antibiotics, discontinued on 01/29. -overall slowly healing without clear evidence of infection -patient was seeing orthopedics today who recommended Betadine to Wound -x-ray shows good position of hardware -continue close follow up to ensure good wound healing and need for good nutrition and protein levels discussed History of Klebsiella positive urine culture -urinalysis 12/15 with too numerous to count white cells and +3 bacteria -history of Klebsiella positive urine culture in November of 2023 only resistant to ampicillin and Macrobid -patient denies any urinary symptoms and UA bland, culture 01/20 negative Inflammatory markers -check Trends -CRP 58, 42, 46, 33, 28, 28, 30, 28, 25, 27, 26, 26 -ESR 71 -CRP trends improving/stable Anemia -hemoglobin 9.5, 10.7, 10, 10.1, 10.1, 9.8, 10.3, 10.6, 10, 10.3, 10, 10.6, 10.5 -previous anemia workup in November of 2022 was negative with normal iron, B12 and folate studies -Fe 37 -hemoglobin stable Thrombocytosis -platelets 440, 438, 470, 438, 466, 439, 479, 429 -suspect this is reactive, continue to follow and remains elevated Healthcare maintenance -hemoglobin A1c normal at 5.7 on 12/15 History of DVT/PE -anticoagulation per primary team Disposition -ongoing PT/OT Diarrhea, history -C diff testing and GI pathogen panel negative -probiotic prescribed. -suspicious for a viral process -Resolved Nausea/poor appetite -lipase, LFTs were not abnormal 01/30 -pre albumin low at 11.9 -encourage p.o. intake, protein shakes Mild oral thrush -nystatin swish and swallow, continue symptomatic treatment of lip dryness -Improving Janet Moreno MD DAILY PROGRESS NOTE Admit Date: 01/19/2024 Date of Evaluation: 49:41 PM [facility] LOS: 13 days IMPRESSION AND PLAN: 83 y.o. 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 1) Severe left hip arthritis s/p total hip arthroplasty PT/OT Continue with eliquis Continue with flexeril Continue with norco PRN Continue with senokot PRN Continue with tramadol PRN Encourage compliance with PT/OT. 2) Chronic normocytic anemia H and H 9.8 -> 9.5 -> 10.7 -> 10.0 -> 10.1 -> 9.8 -> 10.3 -> 10.6 -> 10.0 -> 10.3 -> 10.0 -> 10.6 and 29.2 -> 27.7 -> 31.8 -> 29.1 -> 29.3 -> 29.4 -> 29.0 -> 30.7 -> 31.3 -> >29.3 -> 29.9 -> 29.3 -> 31.4 Fe 29, TIBC 144, transferrin 20 Continue with iron Serial CBC 3) Gout Currently on allopurinol 4) GERD Currently on protonix. 5) Diarrhea Probably viral C. Diff is negative GI panel is negative. Workup is negative to-date Supportive care. Monitor for hypotension Monitor for hypokalemia Improved. 6) Cellulitis Antibiotic therapy will be given especially in the setting of underlying hardware in the postop period to try to prevent any spread of superficial infection to deeper areas of hardware CRP 58.3 -> 33.6 -> 28.4 -> 30.5 -> 28.9 -> 25.8 -> 26.1, stable. Finished a course of linezolid Finished a course of bactrobran Finished a course of bactrim DS BID. Continue with nystatin Encourage PO intake. Followed by ID 7) HTN SBP 120/90s Continue with lisinopril. 8) Mild oral thrush Nystatin swish and swallow, continue symptomatic treatment of lip dryness SUBJECTIVE: Patient seen and examined. Chart, medications, labs reviewed. Admission on 01/11/2024, Discharged on 01/19/2024 Component Date Value Ref Range Status ABO/RH(D) 01/11/2024 O POSITIVE Final PT 01/11/2024 14.2 11.8 - 14.4 SEC Final INR 01/11/2024 1.09 0.85 - 1.10 Final Comment: 2.0-3.0 THERAPEUTIC RANGE 2.5-3.5 MECHANICAL VALVE RANGE SURG PATH RESULT 01/11/2024 Final Value: Surgical Final Report Patient Name: CUATE GOODMAN [facility]. Rec. #: [id number] Physician: ERIK HEREDIA Specimen(s) Received Left femoral head Clinical / Pre-Operative Diagnosis Osteoarthritis of left hip unspecified osteoarthritis type Post-Operative Diagnosis Not provided Surgical Procedure Arthroplasty hip total latera approach Diagnosis: Left femoral head, Excision: -Consistent with degenerative joint disease Electronically Signed lks/01/13/2024 Khoa Vieyra DO Gross Description: The specimen is received in formalin, and labeled left femoral head, Cuate Goodman and date of 1940. The specimen consists of a femoral head and neck measuring 5.5 x 5 x 5 cm with articular cartilage degeneration. Sectioning reveals unremarkable bone. Hip Hop Artist sections are submitted in one cassette and placed in decalcification solution prior to processing. Billing Fee Code(s) A: [id number] 32063 WBC (WHITE BLOOD COUNT) 01/12/2024 10.5 3.6 - 11.0 10*3/uL Final RBC 01/12/2024 3.48 (L) 4.0 - 5.4 10*6/uL Final HEMOGLOBIN (HGB) 01/12/2024 10.9 (L) 12.0 - 16.0 G/DL Final HEMATOCRIT (HCT) 01/12/2024 33.3 (L) 36.0 - 48.0 % Final MEAN CELL VOLUME 01/12/2024 95.7 80.0 - 100.0 FL Final Mean Cell HGB 01/12/2024 31.4 26.0 - 35.0 PG Final MEAN CELL HGB CONCENTRATION 01/12/2024 32.8 27.0 - 37.0 G/DL Final RBC DISTRIBUTION 01/12/2024 14.3 11.5 - 14.5 % Final PLATELET COUNT 01/12/2024 247 130 - 400 10*3/uL Final MEAN PLATELET VOLUME 01/12/2024 8.2 7.4 - 11.0 FL Final DIFFERENTIAL TYPE 01/12/2024 AUTO DIFF % Final NEUTROPHILS 01/12/2024 89.5 (H) 37.0 - 75.0 % Final LYMPHOCYTE 01/12/2024 5.9 (L) 20.0 - 55.0 % Final MONOCYTE % 01/12/2024 4.5 0.0 - 10.0 % Final EOSINOPHIL % 01/12/2024 0.0 0.0 - 11.0 % Final BASOPHIL % 01/12/2024 0.1 0.0 - 2.0 % Final Absolute Neutrophil Count 01/12/2024 9.4 (H) 1.4 - 6.5 10*3/uL Final LYMPHOCYTES, ABSOLUTE 01/12/2024 0.6 (L) 1.2 - 3.4 10*3/uL Final MONOCYTES, ABSOLUTE 01/12/2024 0.5 0.0 - 0.7 10*3/uL Final ABSOLUTE EOSINOPHIL COUNT 01/12/2024 0.0 0.0 - 0.7 10*3/uL Final ABSOLUTE BASOPHIL COUNT 01/12/2024 0.0 0.0 - 0.2 10*3/uL Final Glucose 01/12/2024 179 (H) 70 - 100 MG/DL Final Comment: NORMAL <100 mg/dL PREDIABETES 101-126 mg/dL DIABETES 126 mg/dL or higher BUN 01/12/2024 16 7 - 20 MG/DL Final CREATININE SERUM 01/12/2024 0.70 0.70 - 1.20 MG/DL Final SODIUM 01/12/2024 138 137 - 145 MMOL/L Final POTASSIUM 01/12/2024 4.0 3.5 - 5.1 MMOL/L Final CHLORIDE 01/12/2024 105 98 - 107 MMOL/L Final Please note: Triglyceride levels of 600mg/dL or higher may positively bias chloride results by approximately 2.1 mmol CARBON DIOXIDE (CO2) 01/12/2024 24 22 - 30 MMOL/L Final ANION GAP 01/12/2024 9 MMOL/L Final CALCIUM 01/12/2024 9.1 8.4 - 10.2 MG/DL Final ESTIMATED GFR, NON AMER 01/12/2024 85 ml/min/1.73sq.m Final ESTIMATED GFR, 01/12/2024 103 ml/min/1.73sq.m Final GFR COMMENT 01/12/2024 Average GFR for 70+ years old = 75. Final Comment: Chronic Kidney disease, GFR = <60. Kidney failure, GFR = <15. The GFR estimate is not adjusted for extreme body surface area or acute process, nor has it been validated for women or ethnic groups other than and . WBC (WHITE BLOOD COUNT) 01/13/2024 10.0 3.6 - 11.0 10*3/uL Final RBC 01/13/2024 3.31 (L) 4.0 - 5.4 10*6/uL Final HEMOGLOBIN (HGB) 01/13/2024 10.6 (L) 12.0 - 16.0 G/DL Final HEMATOCRIT (HCT) 01/13/2024 31.8 (L) 36.0 - 48.0 % Final MEAN CELL VOLUME 01/13/2024 95.9 80.0 - 100.0 FL Final Mean Cell HGB 01/13/2024 31.9 26.0 - 35.0 PG Final MEAN CELL HGB CONCENTRATION 01/13/2024 33.2 27.0 - 37.0 G/DL Final RBC DISTRIBUTION 01/13/2024 14.5 11.5 - 14.5 % Final PLATELET COUNT 01/13/2024 228 130 - 400 10*3/uL Final MEAN PLATELET VOLUME 01/13/2024 8.1 7.4 - 11.0 FL Final DIFFERENTIAL TYPE 01/13/2024 AUTO DIFF % Final NEUTROPHILS 01/13/2024 85.8 (H) 37.0 - 75.0 % Final LYMPHOCYTE 01/13/2024 5.9 (L) 20.0 - 55.0 % Final MONOCYTE % 01/13/2024 8.3 0.0 - 10.0 % Final EOSINOPHIL % 01/13/2024 0.0 0.0 - 11.0 % Final BASOPHIL % 01/13/2024 0.0 0.0 - 2.0 % Final Absolute Neutrophil Count 01/13/2024 8.6 (H) 1.4 - 6.5 10*3/uL Final LYMPHOCYTES, ABSOLUTE 01/13/2024 0.6 (L) 1.2 - 3.4 10*3/uL Final MONOCYTES, ABSOLUTE 01/13/2024 0.8 (H) 0.0 - 0.7 10*3/uL Final ABSOLUTE EOSINOPHIL COUNT 01/13/2024 0.0 0.0 - 0.7 10*3/uL Final ABSOLUTE BASOPHIL COUNT 01/13/2024 0.0 0.0 - 0.2 10*3/uL Final Glucose 01/13/2024 164 (H) 70 - 100 MG/DL Final Comment: NORMAL <100 mg/dL PREDIABETES 101-126 mg/dL DIABETES 126 mg/dL or higher BUN 01/13/2024 19 7 - 20 MG/DL Final CREATININE SERUM 01/13/2024 0.70 0.70 - 1.20 MG/DL Final SODIUM 01/13/2024 137 137 - 145 MMOL/L Final POTASSIUM 01/13/2024 4.2 3.5 - 5.1 MMOL/L Final CHLORIDE 01/13/2024 107 98 - 107 MMOL/L Final Please note: Triglyceride levels of 600mg/dL or higher may positively bias chloride results by approximately 2.1 mmol CARBON DIOXIDE (CO2) 01/13/2024 26 22 - 30 MMOL/L Final ANION GAP 01/13/2024 4 MMOL/L Final CALCIUM 01/13/2024 9.0 8.4 - 10.2 MG/DL Final ESTIMATED GFR, NON AMER 01/13/2024 85 ml/min/1.73sq.m Final ESTIMATED GFR, 01/13/2024 103 ml/min/1.73sq.m Final GFR COMMENT 01/13/2024 Average GFR for 70+ years old = 75. Final Comment: Chronic Kidney disease, GFR = <60. Kidney failure, GFR = <15. The GFR estimate is not adjusted for extreme body surface area or acute process, nor has it been validated for women or ethnic groups other than and . TROPONIN I, HIGH SENSITIVITY 01/13/2024 9 0 - 12 pg/mL Final Comment: Indeterminant: >12 to 100 pg/mL female >20 to 100 pg/mL male Indicative of myocardial injury. Serial sampling is recommended, a change of greater than or equal to 20 pg/mL is indicative of acute coronary syndrome. TROPONIN I, HIGH SENSITIVITY 01/13/2024 10 0 - 12 pg/mL Final Comment: Indeterminant: >12 to 100 pg/mL female >20 to 100 pg/mL male Indicative of myocardial injury. Serial sampling is recommended, a change of greater than or equal to 20 pg/mL is indicative of acute coronary syndrome. TROPONIN I, HIGH SENSITIVITY 01/13/2024 14 (H) 0 - 12 pg/mL Final Comment: Indeterminant: >12 to 100 pg/mL female >20 to 100 pg/mL male Indicative of myocardial injury. Serial sampling is recommended, a change of greater than or equal to 20 pg/mL is indicative of acute coronary syndrome. WBC (WHITE BLOOD COUNT) 01/14/2024 9.9 3.6 - 11.0 10*3/uL Final RBC 01/14/2024 3.35 (L) 4.0 - 5.4 10*6/uL Final HEMOGLOBIN (HGB) 01/14/2024 10.5 (L) 12.0 - 16.0 G/DL Final HEMATOCRIT (HCT) 01/14/2024 32.1 (L) 36.0 - 48.0 % Final MEAN CELL VOLUME 01/14/2024 96.0 80.0 - 100.0 FL Final Mean Cell HGB 01/14/2024 31.4 26.0 - 35.0 PG Final MEAN CELL HGB CONCENTRATION 01/14/2024 32.8 27.0 - 37.0 G/DL Final RBC DISTRIBUTION 01/14/2024 14.6 (H) 11.5 - 14.5 % Final PLATELET COUNT 01/14/2024 226 130 - 400 10*3/uL Final MEAN PLATELET VOLUME 01/14/2024 8.4 7.4 - 11.0 FL Final DIFFERENTIAL TYPE 01/14/2024 AUTO DIFF % Final NEUTROPHILS 01/14/2024 77.4 (H) 37.0 - 75.0 % Final LYMPHOCYTE 01/14/2024 11.0 (L) 20.0 - 55.0 % Final MONOCYTE % 01/14/2024 10.8 (H) 0.0 - 10.0 % Final EOSINOPHIL % 01/14/2024 0.5 0.0 - 11.0 % Final BASOPHIL % 01/14/2024 0.3 0.0 - 2.0 % Final Absolute Neutrophil Count 01/14/2024 7.6 (H) 1.4 - 6.5 10*3/uL Final LYMPHOCYTES, ABSOLUTE 01/14/2024 1.1 (L) 1.2 - 3.4 10*3/uL Final MONOCYTES, ABSOLUTE 01/14/2024 1.1 (H) 0.0 - 0.7 10*3/uL Final ABSOLUTE EOSINOPHIL COUNT 01/14/2024 0.1 0.0 - 0.7 10*3/uL Final ABSOLUTE BASOPHIL COUNT 01/14/2024 0.0 0.0 - 0.2 10*3/uL Final WBC (WHITE BLOOD COUNT) 01/17/2024 6.8 3.6 - 11.0 10*3/uL Final RBC 01/17/2024 3.09 (L) 4.0 - 5.4 10*6/uL Final HEMOGLOBIN (HGB) 01/17/2024 9.8 (L) 12.0 - 16.0 G/DL Final HEMATOCRIT (HCT) 01/17/2024 29.2 (L) 36.0 - 48.0 % Final MEAN CELL VOLUME 01/17/2024 94.6 80.0 - 100.0 FL Final Mean Cell HGB 01/17/2024 31.8 26.0 - 35.0 PG Final MEAN CELL HGB CONCENTRATION 01/17/2024 33.6 27.0 - 37.0 G/DL Final RBC DISTRIBUTION 01/17/2024 13.9 11.5 - 14.5 % Final PLATELET COUNT 01/17/2024 279 130 - 400 10*3/uL Final MEAN PLATELET VOLUME 01/17/2024 7.9 7.4 - 11.0 FL Final DIFFERENTIAL TYPE 01/17/2024 AUTO DIFF % Final NEUTROPHILS 01/17/2024 69.1 37.0 - 75.0 % Final LYMPHOCYTE 01/17/2024 16.5 (L) 20.0 - 55.0 % Final MONOCYTE % 01/17/2024 11.9 (H) 0.0 - 10.0 % Final EOSINOPHIL % 01/17/2024 1.9 0.0 - 11.0 % Final BASOPHIL % 01/17/2024 0.6 0.0 - 2.0 % Final Absolute Neutrophil Count 01/17/2024 4.7 1.4 - 6.5 10*3/uL Final LYMPHOCYTES, ABSOLUTE 01/17/2024 1.1 (L) 1.2 - 3.4 10*3/uL Final MONOCYTES, ABSOLUTE 01/17/2024 0.8 (H) 0.0 - 0.7 10*3/uL Final ABSOLUTE EOSINOPHIL COUNT 01/17/2024 0.1 0.0 - 0.7 10*3/uL Final ABSOLUTE BASOPHIL COUNT 01/17/2024 0.0 0.0 - 0.2 10*3/uL Final Glucose 01/17/2024 106 (H) 70 - 100 MG/DL Final Comment: NORMAL <100 mg/dL PREDIABETES 101-126 mg/dL DIABETES 126 mg/dL or higher BUN 01/17/2024 10 7 - 20 MG/DL Final CREATININE SERUM 01/17/2024 0.51 (L) 0.70 - 1.20 MG/DL Final SODIUM 01/17/2024 135 (L) 137 - 145 MMOL/L Final POTASSIUM 01/17/2024 3.3 (L) 3.5 - 5.1 MMOL/L Final CHLORIDE 01/17/2024 105 98 - 107 MMOL/L Final Please note: Triglyceride levels of 600mg/dL or higher may positively bias chloride results by approximately 2.1 mmol CARBON DIOXIDE (CO2) 01/17/2024 29 22 - 30 MMOL/L Final Albumin 01/17/2024 2.6 (L) 3.5 - 5.0 G/dl Final CALCIUM 01/17/2024 8.2 (L) 8.4 - 10.2 MG/DL Final PHOSPHORUS 01/17/2024 2.6 2.5 - 4.5 MG/DL Final ESTIMATED GFR, NON AMER 01/17/2024 123 ml/min/1.73sq.m Final ESTIMATED GFR, 01/17/2024 149 ml/min/1.73sq.m Final GFR COMMENT 01/17/2024 Average GFR for 70+ years old = 75. Final Comment: Chronic Kidney disease, GFR = <60. Kidney failure, GFR = <15. The GFR estimate is not adjusted for extreme body surface area or acute process, nor has it been validated for women or ethnic groups other than and . Glucose 01/18/2024 119 (H) 70 - 100 MG/DL Final Comment: NORMAL <100 mg/dL PREDIABETES 101-126 mg/dL DIABETES 126 mg/dL or higher BUN 01/18/2024 10 7 - 20 MG/DL Final CREATININE SERUM 01/18/2024 0.60 (L) 0.70 - 1.20 MG/DL Final SODIUM 01/18/2024 135 (L) 137 - 145 MMOL/L Final POTASSIUM 01/18/2024 3.5 3.5 - 5.1 MMOL/L Final CHLORIDE 01/18/2024 105 98 - 107 MMOL/L Final Please note: Triglyceride levels of 600mg/dL or higher may positively bias chloride results by approximately 2.1 mmol CARBON DIOXIDE (CO2) 01/18/2024 27 22 - 30 MMOL/L Final ANION GAP 01/18/2024 3 MMOL/L Final CALCIUM 01/18/2024 8.4 8.4 - 10.2 MG/DL Final ESTIMATED GFR, NON AMER 01/18/2024 102 ml/min/1.73sq.m Final ESTIMATED GFR, 01/18/2024 123 ml/min/1.73sq.m Final GFR COMMENT 01/18/2024 Average GFR for 70+ years old = 75. Final Comment: Chronic Kidney disease, GFR = <60. Kidney failure, GFR = <15. The GFR estimate is not adjusted for extreme body surface area or acute process, nor has it been validated for women or ethnic groups other than and . LABS Labs-ABGs Labs-CBC @[id number]@ Labs-Chem 7([facility]) Bun/Creat/Cl/CO2/Glucose: 14/0.90/103/28/98 (01/31 434) Na/K+/Phos/Mg/Ca: 133/4.4/--/--/8.9 (01/31 434) Labs-Coags WBC (WHITE BLOOD COUNT) Date Value Ref Range Status 02/01/2024 5.8 3.6 - 11.0 10*3/uL Final 01/31/2024 5.1 3.6 - 11.0 10*3/uL Final 01/30/2024 5.3 3.6 - 11.0 10*3/uL Final HEMOGLOBIN (HGB) Date Value Ref Range Status 02/01/2024 10.6 (L) 12.0 - 16.0 G/DL Final 01/31/2024 10.0 (L) 12.0 - 16.0 G/DL Final 01/30/2024 10.3 (L) 12.0 - 16.0 G/DL Final HEMATOCRIT (HCT) Date Value Ref Range Status 02/01/2024 31.4 (L) 36.0 - 48.0 % Final 01/31/2024 29.3 (L) 36.0 - 48.0 % Final 01/30/2024 29.9 (L) 36.0 - 48.0 % Final PLATELET COUNT Date Value Ref Range Status 02/01/2024 479 (H) 130 - 400 10*3/uL Final 01/31/2024 439 (H) 130 - 400 10*3/uL Final 01/30/2024 466 (H) 130 - 400 10*3/uL Final SODIUM Date Value Ref Range Status 02/01/2024 133 (L) 137 - 145 MMOL/L Final 01/31/2024 134 (L) 137 - 145 MMOL/L Final 01/30/2024 135 (L) 137 - 145 MMOL/L Final CHLORIDE Date Value Ref Range Status 02/01/2024 103 98 - 107 MMOL/L Final Comment: Please note: Triglyceride levels of 600mg/dL or higher may positively bias chloride results by approximately 2.1 mmol 01/31/2024 102 98 - 107 MMOL/L Final Comment: Please note: Triglyceride levels of 600mg/dL or higher may positively bias chloride results by approximately 2.1 mmol 01/30/2024 101 98 - 107 MMOL/L Final Comment: Please note: Triglyceride levels of 600mg/dL or higher may positively bias chloride results by approximately 2.1 mmol BUN Date Value Ref Range Status 02/01/2024 14 7 - 20 MG/DL Final 01/31/2024 12 7 - 20 MG/DL Final 01/30/2024 10 7 - 20 MG/DL Final POTASSIUM Date Value Ref Range Status 02/01/2024 4.4 3.5 - 5.1 MMOL/L Final 01/31/2024 4.5 3.5 - 5.1 MMOL/L Final 01/30/2024 4.4 3.5 - 5.1 MMOL/L Final CREATININE SERUM Date Value Ref Range Status 02/01/2024 0.90 0.7 - 1.2 MG/DL Final 01/31/2024 1.10 0.7 - 1.2 MG/DL Final 01/30/2024 1.00 0.7 - 1.2 MG/DL Final Glucose Date Value Ref Range Status 02/01/2024 98 70 - 100 MG/DL Final Comment: NORMAL <100 mg/dL PREDIABETES 101-126 mg/dL DIABETES 126 mg/dL or higher 01/31/2024 94 70 - 100 MG/DL Final Comment: NORMAL <100 mg/dL PREDIABETES 101-126 mg/dL DIABETES 126 mg/dL or higher 01/30/2024 93 70 - 100 MG/DL Final Comment: NORMAL <100 mg/dL PREDIABETES 101-126 mg/dL DIABETES 126 mg/dL or higher PT Date Value Ref Range Status 01/11/2024 14.2 11.8 - 14.4 SEC Final 12/16/2023 17.9 (H) 11.8 - 14.4 SEC Final PROTEIN, TOTAL Date Value Ref Range Status 01/31/2024 6.1 (L) 6.3 - 8.2 GM/DL Final 01/23/2024 5.6 (L) 6.3 - 8.2 GM/DL Final 12/16/2023 7.2 6.3 - 8.2 GM/DL Final Albumin Date Value Ref Range Status 01/31/2024 3.0 (L) 3.5 - 5.0 G/DL Final 01/23/2024 2.6 (L) 3.5 - 5.0 G/DL Final 01/17/2024 2.6 (L) 3.5 - 5.0 G/dl Final AST Date Value Ref Range Status 01/31/2024 26 14 - 36 IU/L Final 01/23/2024 25 14 - 36 IU/L Final 12/16/2023 25 14 - 36 IU/L Final ALT Date Value Ref Range Status 01/31/2024 13 <35 IU/L Final 01/23/2024 10 <35 IU/L Final 12/16/2023 16 <35 IU/L Final BILIRUBIN, TOTAL Date Value Ref Range Status 01/31/2024 0.2 0.2 - 1.3 MG/DL Final CALCIUM Date Value Ref Range Status 02/01/2024 8.9 8.4 - 10.2 MG/DL Final 01/31/2024 8.7 8.4 - 10.2 MG/DL Final 01/30/2024 8.6 8.4 - 10.2 MG/DL Final PHOSPHORUS Date Value Ref Range Status 01/17/2024 2.6 2.5 - 4.5 MG/DL Final Lab Results Component Value Date CREATSERUM 0.90 02/01/2024 BUN 14 02/01/2024 SODIUM 133 (L) 02/01/2024 POTASSIUM 4.4 02/01/2024 CHLORIDE 103 02/01/2024 CO2 28 02/01/2024 ROS: Constitution: No fever, no chill HEENT: No headache, no sinus issues CV: No chest pain, no palpitation Lung: No cough, No SOB Abd: No diarrhea, no constipation Neuro: No seizure, no loss of consciousness Heme: No bleeding, no bruise PHYSICAL EXAM: Wt Readings from Last 3 Encounters: 02/01/24 110.8 kg (244 lb 4.8 oz) 12/08/23 103 kg (227 lb) 12/01/23 103 kg (227 lb) Temp Readings from Last 3 Encounters: 02/01/24 98.2 F (36.8 C) (Oral) 01/19/24 98.2 F (36.8 C) (Temporal) BP Readings from Last 3 Encounters: 02/01/24 126/58 01/19/24 137/62 12/16/23 135/89 Pulse Readings from Last 3 Encounters: 02/01/24 86 01/19/24 89 12/16/23 73 Gen: NAD, lying in bed, conversant HEENT: Atraumatic, PERRLA, moist membrane CV: RRR, nl S1 and S2, no m/g/r Lung: CTAB, no wheezing, no crackle Abd: +BS, nontender, no distended Ext: No rash, no clubbing, no cyanosis. No edema. Neuro: CNII-XII grossly intact, 5/5 strength, normal tone Skin: Warm and dry 02/01/24 1439 Physical Therapy Minutes Start Time 1439 Stop Time 1503 Time Calculation 24 PT Individual Minutes 24 minutes General Pain Documentation (Adult, OB, Peds) Presence of Pain denies pain/discomfort Presence of Pain Score (Auto-calculated) 0 Pt up in recliner requesting to ambulate for therapy. Sit<>stand from recliner x 2 SBA using FWW once standing. Pt ambulated 80ft x 2 using FWW SBA with chair follow d/t fatigue. Pt ambulates with step too pattern with TTWB on LLE. Pt demonstrates improved LLE placement during gait. Pt requires seated rest breaks between ambulation. Pt returned to room in recliner with chair alarm on, call light and tray table in reach. 02/01/24 0930 Occupational Therapy Minutes Start Time 0840 Stop Time 0930 Time Calculation 50 OT Individual Minutes 50 minutes General Pain Documentation (Adult, OB, Peds) Presence of Pain denies pain/discomfort Presence of Pain Score (Auto-calculated) 0 Select Pain Scale DVPRS (Defense and Veterans Pain Rating Scale) (Adult-Cognitively Intact) Shower/Bathe Self Assistance Needed Physical assistance Physical Assistance Level 25% or less Comment Pt UB and LB bathe in shower room while seated on shower bench with min a needed for bathing pericare area due to pt voicing safety concerns. CARE Score - Shower/Bathe Self 3 Upper Body Dressing Assistance Needed Set-up / clean-up;Supervision CARE Score - Upper Body Dressing 4 Lower Body Dressing Assistance Needed Supervision Comment Pt doff LB clothing with S. CARE Score - Lower Body Dressing 4 Pt seated in bedside chair upon arrival. Pt expressed need to shower. Pt agreeable to OT. Pt seen for ADL training (see above). Pt washed hair with set up and S. Pt sit to stand transfers from bedside chair with CGA, wc with min a, and shower chair with min a using grab bars. Pt stand pivot transfer from wc to shower chair with CGA. Pt left in bedside chair with chair alarm flashing green and all needs met. AUTOMOTIVE PROJECT ENGINEER made aware pt needs assistance with donning underwear and re-wrapping legs. Continue OT per POC ROBER Alvarado 02/01/24 1052 Physical Therapy Minutes Start Time 1052 Stop Time 1125 Time Calculation 33 PT Individual Minutes 33 minutes General Pain Documentation (Adult, OB, Peds) Presence of Pain reports pain/discomfort Pain Location leg, left Select Pain Scale DVPRS (Defense and Veterans Pain Rating Scale) (Adult-Cognitively Intact) DVPRS (Defense and Veterans Pain Rating Scale) DVPRS: Rest 6- moderate pain DVPRS: Activity 6- moderate pain Sit to Stand Equipment Used Sit to Stand Equipment used arm rest;two wheeled walker Sit to Stand Assistance Needed Adaptive equipment;Supervision Physical Assistance Level No physical assistance Comment Sit<>stand from recliner SBA using FWW once standing CARE Score - Sit to Stand 4 Car Transfer Equipment Used Car Transfer Equipment Used two wheeled walker;other (see comment) (Pt used leg structural designer for car transfers.) Gait Assessment Gait Comments Pt ambulated 10ft x 2 during functional mobility using FWW CGA Walk 10 Feet Assistance Needed Adaptive equipment;Incidental touching CARE Score - Walk 10 Feet 4 1 Step (Curb) Reason if not Attempted Safety concerns CARE Score - 1 Step (Curb) 88 4 Steps Reason if not Attempted Safety concerns CARE Score - 4 Steps 88 Picking Up Object Assistance Needed Adaptive equipment;Supervision Physical Assistance Level No physical assistance Comment using group care worker pt picked up 4 items off the floor while standing with FWW. CARE Score - Picking Up Object 4 PT Barriers and Justification Impairments in Body Structure/Function pain;strength Infectious Disease progress note SUBJECTIVE History of Present Illness: Cuate Goodman 83 y.o. female with a history of left degenerative hip disease with ongoing left hip pain with reported decreased quality of life due to this condition. The patient was seen by Orthopedics and Dr. Heredia performed surgery 01/10 with a left total hip arthroplasty. Total hip arthroplastic surgery on 01/10 did not have noted complications or infectious issues per chart review. The patient was subsequently discharged after an admission from 01/10-01/18 on the med surg unit without stated ID issue. There was no antibiotics at time of discharge. Pathology from knee replacement surgery showed consistent with degenerative joint disease without mention of infection. Has history of previous right total hip arthroplasty and left total knee arthroplasty noted. Past medical history also includes obesity, degenerative joint disease and history of DVT and PE. Additional history includes right bundle-branch block, diastolic dysfunction, B12 deficiency, impaired fasting glucose with normal preoperative A1c, elevated uric acid level, GERD, urinary incontinence, history of abdominal aortic aneurysm. Patient does have a history of penicillin allergy resulting in hives but no other allergies to antibiotics noted. The patient denies any tobacco, alcohol or drug use. No prior use reported. Patient was subsequently admitted swing bed for rehabilitation on 01/18. Patient underwent pain control, PT/OT and ongoing medical management. Patient was noted to have erythema that began around her left hip site approximately on 01/18 or 01/19 per nursing report. There has been no described drainage from her hip. Patient denies any specific areas pain in her hip joint. There is no reported fevers or chills or night sweats at time of initial consultation. The patient denies any new respiratory, abdominal or urinary symptoms. Specifically she denies any UTI symptoms Infectious disease consult 01/21/2024, patient began on Zyvox for superficial postop infection, Interval events: 24 hour events reviewed. Patient continues to complain of low appetite and not wanting to eat. Her family did bring her protein shakes. Patient only ate some sausages for breakfast at the time I saw her. She was encouraged to participate in PT and improve oral intake. Patient denied any vomiting or diarrhea or abdominal pain. No dysuria. No pain at hip area. No fevers overnight. 1 BM logged. ROS A complete review of systems are negative except those consistent with HPI OBJECTIVE Past Medical History: Diagnosis Date Aortic aneurysm Arthritis Deep vein thrombosis (DVT) GERD (gastroesophageal reflux disease) Past Medical History: Diagnosis Date Aortic aneurysm Arthritis Deep vein thrombosis (DVT) GERD (gastroesophageal reflux disease) Past Surgical History: Procedure Laterality Date ARTHROPLASTY HIP TOTAL Left 01/11/2024 Laterality: Left; Surgeon: Erik Heredia MD; Location: [facility] OR NEPHRECTOMY Right 1978 CHOLECYSTECTOMY HIP REPLACEMENT Right HYSTERECTOMY KNEE REPLACEMENT Bilateral left x 2 LITHOTRIPSY multiple Patient Active Problem List Diagnosis S/P total hip arthroplasty Gout Aneurysm of ascending aorta without rupture Aneurysmal dilatation Closed fracture of hand Fracture of metacarpal bone Gastro-esophageal reflux disease without esophagitis Hypomagnesemia Lumbar spondylosis Mixed stress and urge urinary incontinence Morbid (severe) obesity due to excess calories Other disorders of plasma-protein metabolism, not elsewhere classified Pulmonary embolism Solitary kidney, acquired Thoracic aortic ectasia Unilateral primary osteoarthritis, left hip Unsteadiness on feet S/P total left hip arthroplasty Social History Socioeconomic History Marital status: Single Spouse name: Not on file Number of children: Not on file Years of education: Not on file Highest education level: Not on file Occupational History Not on file Tobacco Use Smoking status: Never Smokeless tobacco: Never Substance and Sexual Activity Alcohol use: Never Drug use: Never Sexual activity: Not on file Other Topics Concern Not on file Social History Narrative Not on file Social Determinants of Health Financial Resource Strain: Low Risk (01/21/2024) Overall Financial Resource Strain (CARDIA) Difficulty of Paying Living Expenses: Not very hard Food Insecurity: No Food Insecurity (01/21/2024) Hunger Vital Sign Worried About Running Out of Food in the Last Year: Never true Ran Out of Food in the Last Year: Never true Transportation Needs: No Transportation Needs (01/21/2024) PRAPARE - Transportation Lack of Transportation (Medical): No Lack of Transportation (Non-Medical): No Physical Activity: Not on file Stress: Not on file Social Connections: Not on file Intimate Partner Violence: Not At Risk (01/21/2024) Humiliation, Afraid, Rape, and Kick questionnaire Fear of Current or Ex-Partner: No Emotionally Abused: No Physically Abused: No Sexually Abused: No Housing Stability: Low Risk (01/21/2024) Housing Stability Vital Sign Unable to Pay for Housing in the Last Year: No Number of Places Lived in the Last Year: 1 Unstable Housing in the Last Year: No Current Facility-Administered Medications: Acetaminophen (TYLENOL) tablet 650 mg, 650 mg, Oral, Q4H PRN, Mohan Gomez MD, 650 mg at 01/21/24 1208 Allopurinol (ZYLOPRIM) tablet 100 mg, 100 mg, Oral, Daily, Mohan Gomez MD, 100 mg at 02/01/24 0934 apixaban (ELIQUIS) tablet 5 mg, 5 mg, Oral, Q12H, Mohan Gomez MD, 5 mg at 02/01/24 0934 bisacodyl (DULCOLAX) suppository 10 mg, 10 mg, Rectal, Daily PRN, Mohan Gomez MD Cyclobenzaprine (FLEXERIL) tablet 5 mg, 5 mg, Oral, Q12H, Mohan Gomez MD, 5 mg at 02/01/24933 Docusate (COLACE) capsule 100 mg, 100 mg, Oral, Q12H, Mohan Gomez MD, 100 mg at 02/01/24932 ferrous sulfate tablet 325 mg, 325 mg, Oral, Daily, Mohan Gomez MD, 325 mg at 02/01/24932 hydroCODone-acetaminophen (NORCO) 5-325 MG per tablet 1 tablet, 1 tablet, Oral, Q4H PRN, Mohan Gomez MD, 1 tablet at 02/01/24 1016 hydroCODone-acetaminophen (NORCO) 5-325 MG per tablet 2 tablet, 2 tablet, Oral, Q4H PRN, Mohan Gomez MD, 2 tablet at 01/31/242251 lactulose (CHRONULAC) oral solution 20 g, 20 g, Oral, TID PRN, Mohan Gomez MD Lisinopril (PRINIVIL) tablet 5 mg, 5 mg, Oral, Daily, Mohan Gomez MD, 5 mg at 02/01/24933 multivitamin tablet 1 tablet, 1 tablet, Oral, Daily, Mohan Gomez MD, 1 tablet at 02/01/24932 Nystatin (MYCOSTATIN) oral suspension 500,000 Units, 500,000 Units, Swish & Swallow, 4x daily, Janet Moreno MD, 500,000 Units at 02/01/24 1709 Ondansetron (ZOFRAN) tablet 4 mg, 4 mg, Oral, Q4H PRN, Mohan Gomez MD, 4 mg at 02/01/24 08 Pantoprazole (PROTONIX) tablet DR 40 mg, 40 mg, Oral, Daily, Mohan Gomez MD, 40 mg at 02/01/24933 Polyethylene glycol (MIRALAX) packet 17 g, 17 g, Oral, Q12H, Mohan Gomez MD, 17 g at 01/30/242043 Polyethylene glycol (MIRALAX) packet 17 g, 17 g, Oral, TID PRN, Mohan Gomez MD senna-docusate (SENOKOT-S) 8.6-50 MG per tablet 2 tablet, 2 tablet, Oral, Q12H, Mohan Gomez MD, 2 tablet at 01/30/242043 Tolterodine (DETROL-LA) capsule XL 4 mg, 4 mg, Oral, Daily, Mohan Gomez MD, 4 mg at 02/01/24 0932 Zolpidem (AMBIEN) tablet 5 mg, 5 mg, Oral, QHS PRN, Mohan Gomez MD, 5 mg at 01/31/24 2252 Allergies Allergen Reactions Morphine Nausea and Vomiting Other Reaction(s): GI intolerance Oxycodone Nausea and Vomiting Other Reaction(s): GI intolerance Penicillins Hives Vitals: 02/01/24 0416 02/01/24 0730 02/01/24 0753 02/01/24 192 BP: 121/71 Pulse: 90 Resp: 19 Temp: 97.6 degrees F (36.4 degrees C) TempSrc: Oral SpO2: 92% 92% 92% Weight: 110.8 kg (244 lb 4.8 oz) Height: Intake/Output Summary (Last 24 hours) at 02/01/2024 1933 Last data filed at 02/01/2024 1700 Gross per 24 hour Intake 720 ml Output -- Net 720 ml Physical Exam: CONSTITUTIONAL: Alert and Oriented, in no distress, afebrile HEENT: Normocephalic and atraumatic, Sclera anicteric, PERRL, mild thrush improving, dry lips improving and no visualized HSV lesions CARDIAC: Normal rate, regular rhythm, normal heart sounds and intact distal pulses, no murmurs/rubs/clicks/gallops RESP: Effort normal and breath sounds are normal, but distant. No respiratory distress. No Wheezing/Rales/Cough, RA GI: Soft. Bowel sounds are normal. Nontender. Nondistended. Morbid obesity : No Suprapubic tenderness EXTREMITES: No cyanosis, clubbing; positive for history of left total knee arthroplasty. History of right total hip arthroplasty. Left total hip arthroplasty with incision with surrounding erythema, overall improved, no pain, no drainage. Left greater than right lower extremity edema DERM: Skin is warm and dry. No rash noted MUSCULARSKELETAL: No arthritis noted NEUROLOGIC: Alert and communicative LAB RESULTS: WBC (WHITE BLOOD COUNT) Date/Time Value Ref Range Status 02/01/2024 04:34 AM 5.8 3.6 - 11.0 10*3/uL Final 01/31/2024 06:12 AM 5.1 3.6 - 11.0 10*3/uL Final 01/30/2024 04:15 AM 5.3 3.6 - 11.0 10*3/uL Final 01/29/2024 05:38 AM 4.7 3.6 - 11.0 10*3/uL Final 01/28/2024 06:43 AM 5.1 3.6 - 11.0 10*3/uL Final 01/27/2024 04:37 AM 5.4 3.6 - 11.0 10*3/uL Final 01/26/2024 04:33 AM 5.9 3.6 - 11.0 10*3/uL Final HEMOGLOBIN (HGB) Date/Time Value Ref Range Status 02/01/2024 04:34 AM 10.6 (L) 12.0 - 16.0 G/DL Final 01/31/2024 06:12 AM 10.0 (L) 12.0 - 16.0 G/DL Final 01/30/2024 04:15 AM 10.3 (L) 12.0 - 16.0 G/DL Final 01/29/2024 05:38 AM 10.0 (L) 12.0 - 16.0 G/DL Final 01/28/2024 06:43 AM 10.6 (L) 12.0 - 16.0 G/DL Final 01/27/2024 04:37 AM 10.3 (L) 12.0 - 16.0 G/DL Final 01/26/2024 04:33 AM 9.8 (L) 12.0 - 16.0 G/DL Final HEMATOCRIT (HCT) Date/Time Value Ref Range Status 02/01/2024 04:34 AM 31.4 (L) 36.0 - 48.0 % Final 01/31/2024 06:12 AM 29.3 (L) 36.0 - 48.0 % Final 01/30/2024 04:15 AM 29.9 (L) 36.0 - 48.0 % Final 01/29/2024 05:38 AM 29.3 (L) 36.0 - 48.0 % Final 01/28/2024 06:43 AM 31.3 (L) 36.0 - 48.0 % Final 01/27/2024 04:37 AM 30.7 (L) 36.0 - 48.0 % Final 01/26/2024 04:33 AM 29.0 (L) 36.0 - 48.0 % Final PLATELET COUNT Date/Time Value Ref Range Status 02/01/2024 04:34 AM 479 (H) 130 - 400 10*3/uL Final 01/31/2024 06:12 AM 439 (H) 130 - 400 10*3/uL Final 01/30/2024 04:15 AM 466 (H) 130 - 400 10*3/uL Final 01/29/2024 05:38 AM 438 (H) 130 - 400 10*3/uL Final 01/28/2024 06:43 AM 470 (H) 130 - 400 10*3/uL Final 01/27/2024 04:37 AM 438 (H) 130 - 400 10*3/uL Final 01/26/2024 04:33 AM 440 (H) 130 - 400 10*3/uL Final POTASSIUM Date/Time Value Ref Range Status 02/01/2024 04:34 AM 4.4 3.5 - 5.1 MMOL/L Final 01/31/2024 06:12 AM 4.5 3.5 - 5.1 MMOL/L Final 01/30/2024 04:15 AM 4.4 3.5 - 5.1 MMOL/L Final 01/29/2024 05:38 AM 4.2 3.5 - 5.1 MMOL/L Final 01/28/2024 06:43 AM 4.4 3.5 - 5.1 MMOL/L Final 01/27/2024 04:37 AM 4.0 3.5 - 5.1 MMOL/L Final 01/26/2024 04:33 AM 3.9 3.5 - 5.1 MMOL/L Final CHLORIDE Date/Time Value Ref Range Status 02/01/2024 04:34 AM 103 98 - 107 MMOL/L Final Comment: Please note: Triglyceride levels of 600mg/dL or higher may positively bias chloride results by approximately 2.1 mmol 01/31/2024 06:12 AM 102 98 - 107 MMOL/L Final Comment: Please note: Triglyceride levels of 600mg/dL or higher may positively bias chloride results by approximately 2.1 mmol 01/30/2024 04:15 AM 101 98 - 107 MMOL/L Final Comment: Please note: Triglyceride levels of 600mg/dL or higher may positively bias chloride results by approximately 2.1 mmol 01/29/2024 05:38 AM 101 98 - 107 MMOL/L Final Comment: Please note: Triglyceride levels of 600mg/dL or higher may positively bias chloride results by approximately 2.1 mmol 01/28/2024 06:43 AM 100 98 - 107 MMOL/L Final Comment: Please note: Triglyceride levels of 600mg/dL or higher may positively bias chloride results by approximately 2.1 mmol 01/27/2024 04:37 AM 102 98 - 107 MMOL/L Final Comment: Please note: Triglyceride levels of 600mg/dL or higher may positively bias chloride results by approximately 2.1 mmol 01/26/2024 04:33 AM 102 98 - 107 MMOL/L Final Comment: Please note: Triglyceride levels of 600mg/dL or higher may positively bias chloride results by approximately 2.1 mmol CARBON DIOXIDE (CO2) Date/Time Value Ref Range Status 02/01/2024 04:34 AM 28 22 - 30 MMOL/L Final 01/31/2024 06:12 AM 33 (H) 22 - 30 MMOL/L Final 01/30/2024 04:15 AM 31 (H) 22 - 30 MMOL/L Final 01/29/2024 05:38 AM 30 22 - 30 MMOL/L Final 01/28/2024 06:43 AM 33 (H) 22 - 30 MMOL/L Final 01/27/2024 04:37 AM 30 22 - 30 MMOL/L Final 01/26/2024 04:33 AM 31 (H) 22 - 30 MMOL/L Final Glucose Date/Time Value Ref Range Status 02/01/2024 04:34 AM 98 70 - 100 MG/DL Final Comment: NORMAL <100 mg/dL PREDIABETES 101-126 mg/dL DIABETES 126 mg/dL or higher 01/31/2024 06:12 AM 94 70 - 100 MG/DL Final Comment: NORMAL <100 mg/dL PREDIABETES 101-126 mg/dL DIABETES 126 mg/dL or higher 01/30/2024 04:15 AM 93 70 - 100 MG/DL Final Comment: NORMAL <100 mg/dL PREDIABETES 101-126 mg/dL DIABETES 126 mg/dL or higher 01/29/2024 05:38 AM 94 70 - 100 MG/DL Final Comment: NORMAL <100 mg/dL PREDIABETES 101-126 mg/dL DIABETES 126 mg/dL or higher 01/28/2024 06:43 AM 86 70 - 100 MG/DL Final Comment: NORMAL <100 mg/dL PREDIABETES 101-126 mg/dL DIABETES 126 mg/dL or higher 01/27/2024 04:37 AM 98 70 - 100 MG/DL Final Comment: NORMAL <100 mg/dL PREDIABETES 101-126 mg/dL DIABETES 126 mg/dL or higher 01/26/2024 04:33 AM 109 (H) 70 - 100 MG/DL Final Comment: NORMAL <100 mg/dL PREDIABETES 101-126 mg/dL DIABETES 126 mg/dL or higher BUN Date/Time Value Ref Range Status 02/01/2024 04:34 AM 14 7 - 20 MG/DL Final 01/31/2024 06:12 AM 12 7 - 20 MG/DL Final 01/30/2024 04:15 AM 10 7 - 20 MG/DL Final 01/29/2024 05:38 AM 9 7 - 20 MG/DL Final 01/28/2024 06:43 AM 11 7 - 20 MG/DL Final 01/27/2024 04:37 AM 11 7 - 20 MG/DL Final 01/26/2024 04:33 AM 12 7 - 20 MG/DL Final CREATININE SERUM Date/Time Value Ref Range Status 02/01/2024 04:34 AM 0.90 0.7 - 1.2 MG/DL Final 01/31/2024 06:12 AM 1.10 0.7 - 1.2 MG/DL Final 01/30/2024 04:15 AM 1.00 0.7 - 1.2 MG/DL Final 01/29/2024 05:38 AM 0.80 0.7 - 1.2 MG/DL Final 01/28/2024 06:43 AM 0.80 0.7 - 1.2 MG/DL Final 01/27/2024 04:37 AM 0.70 0.7 - 1.2 MG/DL Final 01/26/2024 04:33 AM 0.70 0.7 - 1.2 MG/DL Final Albumin Date/Time Value Ref Range Status 01/31/2024 06:12 AM 3.0 (L) 3.5 - 5.0 G/DL Final 01/23/2024 04:37 AM 2.6 (L) 3.5 - 5.0 G/DL Final 01/17/2024 04:31 AM 2.6 (L) 3.5 - 5.0 G/dl Final 12/16/2023 12:35 PM 4.0 3.5 - 5.0 G/dl Final CALCIUM Date/Time Value Ref Range Status 02/01/2024 04:34 AM 8.9 8.4 - 10.2 MG/DL Final 01/31/2024 06:12 AM 8.7 8.4 - 10.2 MG/DL Final 01/30/2024 04:15 AM 8.6 8.4 - 10.2 MG/DL Final 01/29/2024 05:38 AM 8.3 (L) 8.4 - 10.2 MG/DL Final 01/28/2024 06:43 AM 8.8 8.4 - 10.2 MG/DL Final 01/27/2024 04:37 AM 8.6 8.4 - 10.2 MG/DL Final 01/26/2024 04:33 AM 8.2 (L) 8.4 - 10.2 MG/DL Final ALKALINE PHOSPHATASE Date/Time Value Ref Range Status 01/31/2024 06:12 AM 107 38 - 126 IU/L Final 01/23/2024 04:37 AM 99 38 - 126 IU/L Final 12/16/2023 12:35 PM 89 38 - 126 IU/L Final AST Date/Time Value Ref Range Status 01/31/2024 06:12 AM 26 14 - 36 IU/L Final 01/23/2024 04:37 AM 25 14 - 36 IU/L Final 12/16/2023 12:35 PM 25 14 - 36 IU/L Final BILIRUBIN, TOTAL Date/Time Value Ref Range Status 01/31/2024 06:12 AM 0.2 0.2 - 1.3 MG/DL Final 01/23/2024 04:37 AM 0.3 0.2 - 1.3 MG/DL Final 12/16/2023 12:35 PM 0.3 0.2 - 1.3 MG/DL Final ANION GAP Date/Time Value Ref Range Status 02/01/2024 04:34 AM 2 (L) 8 - 16 MMOL/L Final 01/31/2024 06:12 AM NEG 1 8 - 16 MMOL/L Final 01/30/2024 04:15 AM 3 (L) 8 - 16 MMOL/L Final 01/29/2024 05:38 AM 3 (L) 8 - 16 MMOL/L Final 01/28/2024 06:43 AM 3 (L) 8 - 16 MMOL/L Final 01/27/2024 04:37 AM 3 (L) 8 - 16 MMOL/L Final 01/26/2024 04:33 AM 1 (L) 8 - 16 MMOL/L Final ALT Date/Time Value Ref Range Status 01/31/2024 06:12 AM 13 <35 IU/L Final 01/23/2024 04:37 AM 10 <35 IU/L Final 12/16/2023 12:35 PM 16 <35 IU/L Final ESTIMATED GFR, NON AMER Date/Time Value Ref Range Status 02/01/2024 04:34 AM 64 ml/min/1.73sq.m Final 01/31/2024 06:12 AM 51 ml/min/1.73sq.m Final 01/30/2024 04:15 AM 57 ml/min/1.73sq.m Final 01/29/2024 05:38 AM 73 ml/min/1.73sq.m Final 01/28/2024 06:43 AM 73 ml/min/1.73sq.m Final 01/27/2024 04:37 AM 85 ml/min/1.73sq.m Final 01/26/2024 04:33 AM 85 ml/min/1.73sq.m Final ESTIMATED GFR, Date/Time Value Ref Range Status 02/01/2024 04:34 AM 77 ml/min/1.73sq.m Final 01/31/2024 06:12 AM 61 ml/min/1.73sq.m Final 01/30/2024 04:15 AM 68 ml/min/1.73sq.m Final 01/29/2024 05:38 AM 89 ml/min/1.73sq.m Final 01/28/2024 06:43 AM 89 ml/min/1.73sq.m Final 01/27/2024 04:37 AM 103 ml/min/1.73sq.m Final 01/26/2024 04:33 AM 103 ml/min/1.73sq.m Final GFR COMMENT Date/Time Value Ref Range Status 02/01/2024 04:34 AM Average GFR for 70+ years old = 75. Final Comment: Chronic Kidney disease, GFR = <60. Kidney failure, GFR = <15. The GFR estimate is not adjusted for extreme body surface area or acute process, nor has it been validated for women or ethnic groups other than and . CBC Lab Results Component Value Date WBC 5.8 02/01/2024 HGB 10.6 (L) 02/01/2024 HCT 31.4 (L) 02/01/2024 PLATELET 479 (H) 02/01/2024 MCV 95.5 02/01/2024 EDIF Lab Results Component Value Date RBCDISTRIBU 14.8 (H) 02/01/2024 EOSINOPHILS 2.6 02/01/2024 EOSINOPHILS 0.1 02/01/2024 BASOPHILS 1.1 02/01/2024 BASOPHILS 0.1 02/01/2024 LYMPHOCYTABS 1.7 02/01/2024 PLATELET 479 (H) 02/01/2024 MPV 6.4 (L) 02/01/2024 Lab Results Component Value Date SODIUM 133 (L) 02/01/2024 POTASSIUM 4.4 02/01/2024 CHLORIDE 103 02/01/2024 CO2 28 02/01/2024 BUN 14 02/01/2024 CREATSERUM 0.90 02/01/2024 GLUCOSE 98 02/01/2024 Micro C difficile stool 01/23- Urine culture 01/20- 01/20 Nares - 12/16/2023 positive nares test for MSSA 12/15 urine test positive for Klebsiella only resistant to ampicillin and Macrobid XR CHEST 1 VIEW PORTABLE Final Result IMPRESSION: 1. Cardiomegaly. 2. Aortic tortuosity. 3. Minor effusion in the left lung base is suspected. 4. Both lungs are expanded. I am not seeing any obvious displaced fracture although detail is limited. There are accentuated interstitial markings which may well be chronic. ASSESSMENT AND PLAN . Cuate Goodman 83 y.o. with a history of multiple medical problems including DVT/PE, morbid obesity, degenerative joint disease presents with left hip pain undergoing left total hip arthroplasty on 01/10 showing degenerative changes Left total hip arthroplasty, concern for superficial wound infection -history of development of erythema around the incision site on 01/18 or 01/19 without systemic signs of infection -check wound culture if there is any drainage - none currently -perioperative nares culture was positive for MSSA, repeat culture 01/20 negative -antibiotic therapy will be given especially in the setting of underlying hardware in the postop period to try to prevent any spread of superficial infection to deeper areas of hardware and this was discussed with her and all questions answered -s/p zyvox 01/20-01/26 -s/p Septra 01/26-01/29 -s/p mupirocin twice daily, 01/22-01/26 -recommend avoiding any rubbing of the undergarments, discussed with nursing -status post 10 day course of antibiotics, discontinued on 01/29. -overall slowly healing History of Klebsiella positive urine culture -urinalysis 12/15 with too numerous to count white cells and +3 bacteria -history of Klebsiella positive urine culture in November of 2023 only resistant to ampicillin and Macrobid -patient denies any urinary symptoms and UA bland, culture 01/20 negative Inflammatory markers -check Trends -CRP 58, 42, 46, 33, 28, 28, 30, 28, 25, 27, 26 -ESR 71 -CRP trends improving/stable Anemia -hemoglobin 9.5, 10.7, 10, 10.1, 10.1, 9.8, 10.3, 10.6, 10, 10.3, 10, 10.6 -previous anemia workup in November of 2022 was negative with normal iron, B12 and folate studies -Fe 37 -hemoglobin stable Thrombocytosis -platelets 440, 438, 470, 438, 466, 439, 479 -suspect this is reactive, continue to follow and remains elevated Healthcare maintenance -hemoglobin A1c normal at 5.7 on 12/15 History of DVT/PE -anticoagulation per primary team Disposition -ongoing PT/OT Diarrhea, history -C diff testing and GI pathogen panel negative -probiotic prescribed. -suspicious for a viral process -Resolved Nausea/poor appetite -lipase, LFTs were not abnormal 01/30 Nutrition -pre albumin low at 11.9 -encourage p.o. intake, protein shakes Mild oral thrush -nystatin swish and swallow, continue symptomatic treatment of lip dryness -Improving Janet Moreno MD DAILY PROGRESS NOTE Admit Date: 01/19/2024 Date of Evaluation: 2:14 AM [facility] LOS: 13 days IMPRESSION AND PLAN: 83 y.o. 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 1) Severe left hip arthritis s/p total hip arthroplasty PT/OT Continue with eliquis Continue with flexeril Continue with norco PRN Continue with senokot PRN Continue with tramadol PRN Encourage compliance with PT/OT. 2) Chronic normocytic anemia H and H 9.8 -> 9.5 -> 10.7 -> 10.0 -> 10.1 -> 9.8 -> 10.3 -> 10.6 -> 10.0 -> 10.3 -> 10.0 and 29.2 -> 27.7 -> 31.8 -> 29.1 -> 29.3 -> 29.4 -> 29.0 -> 30.7 -> 31.3 -> >29.3 -> 29.9 -> 29.3 Fe 29, TIBC 144, transferrin 20 Continue with iron Serial CBC 3) Gout Currently on allopurinol 4) GERD Currently on protonix. 5) Diarrhea Probably viral C. Diff is negative GI panel is negative. Workup is negative to-date Improved. Supportive care. Monitor for hypotension Monitor for hypokalemia 6) Cellulitis Antibiotic therapy will be given especially in the setting of underlying hardware in the postop period to try to prevent any spread of superficial infection to deeper areas of hardware CRP 58.3 -> 33.6 -> 28.4 -> 30.5 -> 28.9 -> 25.8, stable. Finished a course of linezolid Finished a course of bactrobran Finished a course of bactrim DS BID. Continue with nystatin Encourage PO intake. Followed by ID 7) HTN SBP 120/90s Continue with lisinopril. 8) Mild oral thrush Nystatin swish and swallow, continue symptomatic treatment of lip dryness SUBJECTIVE: Patient seen and examined. Chart, medications, labs reviewed. Admission on 01/11/2024, Discharged on 01/19/2024 Component Date Value Ref Range Status ABO/RH(D) 01/11/2024 O POSITIVE Final PT 01/11/2024 14.2 11.8 - 14.4 SEC Final INR 01/11/2024 1.09 0.85 - 1.10 Final Comment: 2.0-3.0 THERAPEUTIC RANGE 2.5-3.5 MECHANICAL VALVE RANGE SURG PATH RESULT 01/11/2024 Final Value: Surgical Final Report Patient Name: CUATE GOODMAN Med. Rec. #: [id number] Physician: ERIK HEREDIA Specimen(s) Received Left femoral head Clinical / Pre-Operative Diagnosis Osteoarthritis of left hip unspecified osteoarthritis type Post-Operative Diagnosis Not provided Surgical Procedure Arthroplasty hip total latera approach Diagnosis: Left femoral head, Excision: -Consistent with degenerative joint disease Electronically Signed lks/01/13/2024 Khoa Vieyra DO Gross Description: The specimen is received in formalin, and labeled left femoral head, Cuate Goodman and date of 1940. The specimen consists of a femoral head and neck measuring 5.5 x 5 x 5 cm with articular cartilage degeneration. Sectioning reveals unremarkable bone. Hip Hop Artist sections are submitted in one cassette and placed in decalcification solution prior to processing. Billing Fee Code(s) A: 66567, 05920 WBC (WHITE BLOOD COUNT) 01/12/2024 10.5 3.6 - 11.0 10*3/uL Final RBC 01/12/2024 3.48 (L) 4.0 - 5.4 10*6/uL Final HEMOGLOBIN (HGB) 01/12/2024 10.9 (L) 12.0 - 16.0 G/DL Final HEMATOCRIT (HCT) 01/12/2024 33.3 (L) 36.0 - 48.0 % Final MEAN CELL VOLUME 01/12/2024 95.7 80.0 - 100.0 FL Final Mean Cell HGB 01/12/2024 31.4 26.0 - 35.0 PG Final MEAN CELL HGB CONCENTRATION 01/12/2024 32.8 27.0 - 37.0 G/DL Final RBC DISTRIBUTION 01/12/2024 14.3 11.5 - 14.5 % Final PLATELET COUNT 01/12/2024 247 130 - 400 10*3/uL Final MEAN PLATELET VOLUME 01/12/2024 8.2 7.4 - 11.0 FL Final DIFFERENTIAL TYPE 01/12/2024 AUTO DIFF % Final NEUTROPHILS 01/12/2024 89.5 (H) 37.0 - 75.0 % Final LYMPHOCYTE 01/12/2024 5.9 (L) 20.0 - 55.0 % Final MONOCYTE % 01/12/2024 4.5 0.0 - 10.0 % Final EOSINOPHIL % 01/12/2024 0.0 0.0 - 11.0 % Final BASOPHIL % 01/12/2024 0.1 0.0 - 2.0 % Final Absolute Neutrophil Count 01/12/2024 9.4 (H) 1.4 - 6.5 10*3/uL Final LYMPHOCYTES, ABSOLUTE 01/12/2024 0.6 (L) 1.2 - 3.4 10*3/uL Final MONOCYTES, ABSOLUTE 01/12/2024 0.5 0.0 - 0.7 10*3/uL Final ABSOLUTE EOSINOPHIL COUNT 01/12/2024 0.0 0.0 - 0.7 10*3/uL Final ABSOLUTE BASOPHIL COUNT 01/12/2024 0.0 0.0 - 0.2 10*3/uL Final Glucose 01/12/2024 179 (H) 70 - 100 MG/DL Final Comment: NORMAL <100 mg/dL PREDIABETES 101-126 mg/dL DIABETES 126 mg/dL or higher BUN 01/12/2024 16 7 - 20 MG/DL Final CREATININE SERUM 01/12/2024 0.70 0.70 - 1.20 MG/DL Final SODIUM 01/12/2024 138 137 - 145 MMOL/L Final POTASSIUM 01/12/2024 4.0 3.5 - 5.1 MMOL/L Final CHLORIDE 01/12/2024 105 98 - 107 MMOL/L Final Please note: Triglyceride levels of 600mg/dL or higher may positively bias chloride results by approximately 2.1 mmol CARBON DIOXIDE (CO2) 01/12/2024 24 22 - 30 MMOL/L Final ANION GAP 01/12/2024 9 MMOL/L Final CALCIUM 01/12/2024 9.1 8.4 - 10.2 MG/DL Final ESTIMATED GFR, NON AMER 01/12/2024 85 ml/min/1.73sq.m Final ESTIMATED GFR, 01/12/2024 103 ml/min/1.73sq.m Final GFR COMMENT 01/12/2024 Average GFR for 70+ years old = 75. Final Comment: Chronic Kidney disease, GFR = <60. Kidney failure, GFR = <15. The GFR estimate is not adjusted for extreme body surface area or acute process, nor has it been validated for women or ethnic groups other than and . WBC (WHITE BLOOD COUNT) 01/13/2024 10.0 3.6 - 11.0 10*3/uL Final RBC 01/13/2024 3.31 (L) 4.0 - 5.4 10*6/uL Final HEMOGLOBIN (HGB) 01/13/2024 10.6 (L) 12.0 - 16.0 G/DL Final HEMATOCRIT (HCT) 01/13/2024 31.8 (L) 36.0 - 48.0 % Final MEAN CELL VOLUME 01/13/2024 95.9 80.0 - 100.0 FL Final Mean Cell HGB 01/13/2024 31.9 26.0 - 35.0 PG Final MEAN CELL HGB CONCENTRATION 01/13/2024 33.2 27.0 - 37.0 G/DL Final RBC DISTRIBUTION 01/13/2024 14.5 11.5 - 14.5 % Final PLATELET COUNT 01/13/2024 228 130 - 400 10*3/uL Final MEAN PLATELET VOLUME 01/13/2024 8.1 7.4 - 11.0 FL Final DIFFERENTIAL TYPE 01/13/2024 AUTO DIFF % Final NEUTROPHILS 01/13/2024 85.8 (H) 37.0 - 75.0 % Final LYMPHOCYTE 01/13/2024 5.9 (L) 20.0 - 55.0 % Final MONOCYTE % 01/13/2024 8.3 0.0 - 10.0 % Final EOSINOPHIL % 01/13/2024 0.0 0.0 - 11.0 % Final BASOPHIL % 01/13/2024 0.0 0.0 - 2.0 % Final Absolute Neutrophil Count 01/13/2024 8.6 (H) 1.4 - 6.5 10*3/uL Final LYMPHOCYTES, ABSOLUTE 01/13/2024 0.6 (L) 1.2 - 3.4 10*3/uL Final MONOCYTES, ABSOLUTE 01/13/2024 0.8 (H) 0.0 - 0.7 10*3/uL Final ABSOLUTE EOSINOPHIL COUNT 01/13/2024 0.0 0.0 - 0.7 10*3/uL Final ABSOLUTE BASOPHIL COUNT 01/13/2024 0.0 0.0 - 0.2 10*3/uL Final Glucose 01/13/2024 164 (H) 70 - 100 MG/DL Final Comment: NORMAL <100 mg/dL PREDIABETES 101-126 mg/dL DIABETES 126 mg/dL or higher BUN 01/13/2024 19 7 - 20 MG/DL Final CREATININE SERUM 01/13/2024 0.70 0.70 - 1.20 MG/DL Final SODIUM 01/13/2024 137 137 - 145 MMOL/L Final POTASSIUM 01/13/2024 4.2 3.5 - 5.1 MMOL/L Final CHLORIDE 01/13/2024 107 98 - 107 MMOL/L Final Please note: Triglyceride levels of 600mg/dL or higher may positively bias chloride results by approximately 2.1 mmol CARBON DIOXIDE (CO2) 01/13/2024 26 22 - 30 MMOL/L Final ANION GAP 01/13/2024 4 MMOL/L Final CALCIUM 01/13/2024 9.0 8.4 - 10.2 MG/DL Final ESTIMATED GFR, NON AMER 01/13/2024 85 ml/min/1.73sq.m Final ESTIMATED GFR, 01/13/2024 103 ml/min/1.73sq.m Final GFR COMMENT 01/13/2024 Average GFR for 70+ years old = 75. Final Comment: Chronic Kidney disease, GFR = <60. Kidney failure, GFR = <15. The GFR estimate is not adjusted for extreme body surface area or acute process, nor has it been validated for women or ethnic groups other than and . TROPONIN I, HIGH SENSITIVITY 01/13/2024 9 0 - 12 pg/mL Final Comment: Indeterminant: >12 to 100 pg/mL female >20 to 100 pg/mL male Indicative of myocardial injury. Serial sampling is recommended, a change of greater than or equal to 20 pg/mL is indicative of acute coronary syndrome. TROPONIN I, HIGH SENSITIVITY 01/13/2024 10 0 - 12 pg/mL Final Comment: Indeterminant: >12 to 100 pg/mL female >20 to 100 pg/mL male Indicative of myocardial injury. Serial sampling is recommended, a change of greater than or equal to 20 pg/mL is indicative of acute coronary syndrome. TROPONIN I, HIGH SENSITIVITY 01/13/2024 14 (H) 0 - 12 pg/mL Final Comment: Indeterminant: >12 to 100 pg/mL female >20 to 100 pg/mL male Indicative of myocardial injury. Serial sampling is recommended, a change of greater than or equal to 20 pg/mL is indicative of acute coronary syndrome. WBC (WHITE BLOOD COUNT) 01/14/2024 9.9 3.6 - 11.0 10*3/uL Final RBC 01/14/2024 3.35 (L) 4.0 - 5.4 10*6/uL Final HEMOGLOBIN (HGB) 01/14/2024 10.5 (L) 12.0 - 16.0 G/DL Final HEMATOCRIT (HCT) 01/14/2024 32.1 (L) 36.0 - 48.0 % Final MEAN CELL VOLUME 01/14/2024 96.0 80.0 - 100.0 FL Final Mean Cell HGB 01/14/2024 31.4 26.0 - 35.0 PG Final MEAN CELL HGB CONCENTRATION 01/14/2024 32.8 27.0 - 37.0 G/DL Final RBC DISTRIBUTION 01/14/2024 14.6 (H) 11.5 - 14.5 % Final PLATELET COUNT 01/14/2024 226 130 - 400 10*3/uL Final MEAN PLATELET VOLUME 01/14/2024 8.4 7.4 - 11.0 FL Final DIFFERENTIAL TYPE 01/14/2024 AUTO DIFF % Final NEUTROPHILS 01/14/2024 77.4 (H) 37.0 - 75.0 % Final LYMPHOCYTE 01/14/2024 11.0 (L) 20.0 - 55.0 % Final MONOCYTE % 01/14/2024 10.8 (H) 0.0 - 10.0 % Final EOSINOPHIL % 01/14/2024 0.5 0.0 - 11.0 % Final BASOPHIL % 01/14/2024 0.3 0.0 - 2.0 % Final Absolute Neutrophil Count 01/14/2024 7.6 (H) 1.4 - 6.5 10*3/uL Final LYMPHOCYTES, ABSOLUTE 01/14/2024 1.1 (L) 1.2 - 3.4 10*3/uL Final MONOCYTES, ABSOLUTE 01/14/2024 1.1 (H) 0.0 - 0.7 10*3/uL Final ABSOLUTE EOSINOPHIL COUNT 01/14/2024 0.1 0.0 - 0.7 10*3/uL Final ABSOLUTE BASOPHIL COUNT 01/14/2024 0.0 0.0 - 0.2 10*3/uL Final WBC (WHITE BLOOD COUNT) 01/17/2024 6.8 3.6 - 11.0 10*3/uL Final RBC 01/17/2024 3.09 (L) 4.0 - 5.4 10*6/uL Final HEMOGLOBIN (HGB) 01/17/2024 9.8 (L) 12.0 - 16.0 G/DL Final HEMATOCRIT (HCT) 01/17/2024 29.2 (L) 36.0 - 48.0 % Final MEAN CELL VOLUME 01/17/2024 94.6 80.0 - 100.0 FL Final Mean Cell HGB 01/17/2024 31.8 26.0 - 35.0 PG Final MEAN CELL HGB CONCENTRATION 01/17/2024 33.6 27.0 - 37.0 G/DL Final RBC DISTRIBUTION 01/17/2024 13.9 11.5 - 14.5 % Final PLATELET COUNT 01/17/2024 279 130 - 400 10*3/uL Final MEAN PLATELET VOLUME 01/17/2024 7.9 7.4 - 11.0 FL Final DIFFERENTIAL TYPE 01/17/2024 AUTO DIFF % Final NEUTROPHILS 01/17/2024 69.1 37.0 - 75.0 % Final LYMPHOCYTE 01/17/2024 16.5 (L) 20.0 - 55.0 % Final MONOCYTE % 01/17/2024 11.9 (H) 0.0 - 10.0 % Final EOSINOPHIL % 01/17/2024 1.9 0.0 - 11.0 % Final BASOPHIL % 01/17/2024 0.6 0.0 - 2.0 % Final Absolute Neutrophil Count 01/17/2024 4.7 1.4 - 6.5 10*3/uL Final LYMPHOCYTES, ABSOLUTE 01/17/2024 1.1 (L) 1.2 - 3.4 10*3/uL Final MONOCYTES, ABSOLUTE 01/17/2024 0.8 (H) 0.0 - 0.7 10*3/uL Final ABSOLUTE EOSINOPHIL COUNT 01/17/2024 0.1 0.0 - 0.7 10*3/uL Final ABSOLUTE BASOPHIL COUNT 01/17/2024 0.0 0.0 - 0.2 10*3/uL Final Glucose 01/17/2024 106 (H) 70 - 100 MG/DL Final Comment: NORMAL <100 mg/dL PREDIABETES 101-126 mg/dL DIABETES 126 mg/dL or higher BUN 01/17/2024 10 7 - 20 MG/DL Final CREATININE SERUM 01/17/2024 0.51 (L) 0.70 - 1.20 MG/DL Final SODIUM 01/17/2024 135 (L) 137 - 145 MMOL/L Final POTASSIUM 01/17/2024 3.3 (L) 3.5 - 5.1 MMOL/L Final CHLORIDE 01/17/2024 105 98 - 107 MMOL/L Final Please note: Triglyceride levels of 600mg/dL or higher may positively bias chloride results by approximately 2.1 mmol CARBON DIOXIDE (CO2) 01/17/2024 29 22 - 30 MMOL/L Final Albumin 01/17/2024 2.6 (L) 3.5 - 5.0 G/dl Final CALCIUM 01/17/2024 8.2 (L) 8.4 - 10.2 MG/DL Final PHOSPHORUS 01/17/2024 2.6 2.5 - 4.5 MG/DL Final ESTIMATED GFR, NON AMER 01/17/2024 123 ml/min/1.73sq.m Final ESTIMATED GFR, 01/17/2024 149 ml/min/1.73sq.m Final GFR COMMENT 01/17/2024 Average GFR for 70+ years old = 75. Final Comment: Chronic Kidney disease, GFR = <60. Kidney failure, GFR = <15. The GFR estimate is not adjusted for extreme body surface area or acute process, nor has it been validated for women or ethnic groups other than and . Glucose 01/18/2024 119 (H) 70 - 100 MG/DL Final Comment: NORMAL <100 mg/dL PREDIABETES 101-126 mg/dL DIABETES 126 mg/dL or higher BUN 01/18/2024 10 7 - 20 MG/DL Final CREATININE SERUM 01/18/2024 0.60 (L) 0.70 - 1.20 MG/DL Final SODIUM 01/18/2024 135 (L) 137 - 145 MMOL/L Final POTASSIUM 01/18/2024 3.5 3.5 - 5.1 MMOL/L Final CHLORIDE 01/18/2024 105 98 - 107 MMOL/L Final Please note: Triglyceride levels of 600mg/dL or higher may positively bias chloride results by approximately 2.1 mmol CARBON DIOXIDE (CO2) 01/18/2024 27 22 - 30 MMOL/L Final ANION GAP 01/18/2024 3 MMOL/L Final CALCIUM 01/18/2024 8.4 8.4 - 10.2 MG/DL Final ESTIMATED GFR, NON AMER 01/18/2024 102 ml/min/1.73sq.m Final ESTIMATED GFR, 01/18/2024 123 ml/min/1.73sq.m Final GFR COMMENT 01/18/2024 Average GFR for 70+ years old = 75. Final Comment: Chronic Kidney disease, GFR = <60. Kidney failure, GFR = <15. The GFR estimate is not adjusted for extreme body surface area or acute process, nor has it been validated for women or ethnic groups other than and . LABS Labs-ABGs Labs-CBC @[id number]@ Labs-Chem 7([facility]) Bun/Creat/Cl/CO2/Glucose: 06/18.10/102/33/94 (01/31 612) Na/K+/Phos/Mg/Ca: 134/4.5/--/--/8.7 (01/31 612) Labs-Coags WBC (WHITE BLOOD COUNT) Date Value Ref Range Status 01/31/2024 5.1 3.6 - 11.0 10*3/uL Final 01/30/2024 5.3 3.6 - 11.0 10*3/uL Final 01/29/2024 4.7 3.6 - 11.0 10*3/uL Final HEMOGLOBIN (HGB) Date Value Ref Range Status 01/31/2024 10.0 (L) 12.0 - 16.0 G/DL Final 01/30/2024 10.3 (L) 12.0 - 16.0 G/DL Final 01/29/2024 10.0 (L) 12.0 - 16.0 G/DL Final HEMATOCRIT (HCT) Date Value Ref Range Status 01/31/2024 29.3 (L) 36.0 - 48.0 % Final 01/30/2024 29.9 (L) 36.0 - 48.0 % Final 01/29/2024 29.3 (L) 36.0 - 48.0 % Final PLATELET COUNT Date Value Ref Range Status 01/31/2024 439 (H) 130 - 400 10*3/uL Final 01/30/2024 466 (H) 130 - 400 10*3/uL Final 01/29/2024 438 (H) 130 - 400 10*3/uL Final SODIUM Date Value Ref Range Status 01/31/2024 134 (L) 137 - 145 MMOL/L Final 01/30/2024 135 (L) 137 - 145 MMOL/L Final 01/29/2024 134 (L) 137 - 145 MMOL/L Final CHLORIDE Date Value Ref Range Status 01/31/2024 102 98 - 107 MMOL/L Final Comment: Please note: Triglyceride levels of 600mg/dL or higher may positively bias chloride results by approximately 2.1 mmol 01/30/2024 101 98 - 107 MMOL/L Final Comment: Please note: Triglyceride levels of 600mg/dL or higher may positively bias chloride results by approximately 2.1 mmol 01/29/2024 101 98 - 107 MMOL/L Final Comment: Please note: Triglyceride levels of 600mg/dL or higher may positively bias chloride results by approximately 2.1 mmol BUN Date Value Ref Range Status 01/31/2024 12 7 - 20 MG/DL Final 01/30/2024 10 7 - 20 MG/DL Final 01/29/2024 9 7 - 20 MG/DL Final POTASSIUM Date Value Ref Range Status 01/31/2024 4.5 3.5 - 5.1 MMOL/L Final 01/30/2024 4.4 3.5 - 5.1 MMOL/L Final 01/29/2024 4.2 3.5 - 5.1 MMOL/L Final CREATININE SERUM Date Value Ref Range Status 01/31/2024 1.10 0.7 - 1.2 MG/DL Final 01/30/2024 1.00 0.7 - 1.2 MG/DL Final 01/29/2024 0.80 0.7 - 1.2 MG/DL Final Glucose Date Value Ref Range Status 01/31/2024 94 70 - 100 MG/DL Final Comment: NORMAL <100 mg/dL PREDIABETES 101-126 mg/dL DIABETES 126 mg/dL or higher 01/30/2024 93 70 - 100 MG/DL Final Comment: NORMAL <100 mg/dL PREDIABETES 101-126 mg/dL DIABETES 126 mg/dL or higher 01/29/2024 94 70 - 100 MG/DL Final Comment: NORMAL <100 mg/dL PREDIABETES 101-126 mg/dL DIABETES 126 mg/dL or higher PT Date Value Ref Range Status 01/11/2024 14.2 11.8 - 14.4 SEC Final 12/16/2023 17.9 (H) 11.8 - 14.4 SEC Final PROTEIN, TOTAL Date Value Ref Range Status 01/31/2024 6.1 (L) 6.3 - 8.2 GM/DL Final 01/23/2024 5.6 (L) 6.3 - 8.2 GM/DL Final 12/16/2023 7.2 6.3 - 8.2 GM/DL Final Albumin Date Value Ref Range Status 01/31/2024 3.0 (L) 3.5 - 5.0 G/DL Final 01/23/2024 2.6 (L) 3.5 - 5.0 G/DL Final 01/17/2024 2.6 (L) 3.5 - 5.0 G/dl Final AST Date Value Ref Range Status 01/31/2024 26 14 - 36 IU/L Final 01/23/2024 25 14 - 36 IU/L Final 12/16/2023 25 14 - 36 IU/L Final ALT Date Value Ref Range Status 01/31/2024 13 <35 IU/L Final 01/23/2024 10 <35 IU/L Final 12/16/2023 16 <35 IU/L Final BILIRUBIN, TOTAL Date Value Ref Range Status 01/31/2024 0.2 0.2 - 1.3 MG/DL Final CALCIUM Date Value Ref Range Status 01/31/2024 8.7 8.4 - 10.2 MG/DL Final 01/30/2024 8.6 8.4 - 10.2 MG/DL Final 01/29/2024 8.3 (L) 8.4 - 10.2 MG/DL Final PHOSPHORUS Date Value Ref Range Status 01/17/2024 2.6 2.5 - 4.5 MG/DL Final Lab Results Component Value Date CREATSERUM 1.10 01/31/2024 BUN 12 01/31/2024 SODIUM 134 (L) 01/31/2024 POTASSIUM 4.5 01/31/2024 CHLORIDE 102 01/31/2024 CO2 33 (H) 01/31/2024 ROS: Constitution: No fever, no chill HEENT: No headache, no sinus issues CV: No chest pain, no palpitation Lung: No cough, No SOB Abd: No diarrhea, no constipation Neuro: No seizure, no loss of consciousness Heme: No bleeding, no bruise PHYSICAL EXAM: Wt Readings from Last 3 Encounters: 01/31/24 111.4 kg (245 lb 8 oz) 12/08/23 103 kg (227 lb) 12/01/23 103 kg (227 lb) Temp Readings from Last 3 Encounters: 01/31/24 98.2 F (36.8 C) (Oral) 01/19/24 98.2 F (36.8 C) (Temporal) BP Readings from Last 3 Encounters: 01/31/24 123/83 01/19/24 137/62 12/16/23 135/89 Pulse Readings from Last 3 Encounters: 01/31/24 100 01/19/24 89 12/16/23 73 Gen: NAD, lying in bed, conversant HEENT: Atraumatic, PERRLA, moist membrane CV: RRR, nl S1 and S2, no m/g/r Lung: CTAB, no wheezing, no crackle Abd: +BS, nontender, no distended Ext: No rash, no clubbing, no cyanosis. No edema. Neuro: CNII-XII grossly intact, 5/5 strength, normal tone Skin: Warm and dry 01/31/24 1607 Time In/Out Time In 1607 Time Out 1626 Total Visit Time 19 minutes Total Treatment Time (skilled, billable minutes) 19 minutes Subjective Existing Precautions/Restrictions hip;weight bearing (global hip precautions with hip abductor pillow at night; TTWB status LLE) Subjective Reports Declines any further activities this afternoon with OT including attempt for balance activities, simulated dressing tasks, practice with footwear, or functional ADL transfers. Pt requests to complete theraband exercises only with this therapist. Cognitive Status Examination Orientation Status (Cognition) oriented x 4 Level of Consciousness alert;cooperative General Pain Documentation (Adult, OB, Peds) Presence of Pain not present: non-verbal indicator of pain/discomfort Presence of Pain Score (Auto-calculated) 0 Objective Therapeutic Exercise Seen for brief reassessment of BUE ROM/strength. AROM WFL BUEs. Demonstrated grade 4+/5 RUE strength and 4 to 4+/5 LUE strength. Used level II theraband x 6 UE motions x 12 reps each motion; 3 intermittent rest breaks. Minimized resistive overhead motion with L shoulder secondary to remote shoulder discomfort since previous history of L shoulder surgery. Education on ROM exercises to maintain joint integrity. Pt reclined in chair at end of session with her call light and personal items in reach. Chair alarm activated. Assessment Assessment Narrative Tolerated exercises well with intermittent rests and within tolerance levels without c/o pain. Plan Plan for next session OT per POC; Ongoing supervision of OT POC and treatment transferred to JANN Welch/Karin at [facility]. YASH Travis 01/31/2024 01/31/24 1415 Physical Therapy Minutes Start Time 1415 Stop Time 1446 Time Calculation 31 PT Individual Minutes 31 minutes General Pain Documentation (Adult, OB, Peds) Presence of Pain denies pain/discomfort Presence of Pain Score (Auto-calculated) 0 Sit to Stand Equipment Used Sit to Stand Equipment used arm rest;two wheeled walker Sit to Stand Assistance Needed Adaptive equipment;Incidental touching Physical Assistance Level No physical assistance Comment CGA using FWW CARE Score - Sit to Stand 4 Gait Assessment Distance Walked 72' and 60' Gait Equipment two-wheeled walker Deviations antalgic Gait Comments Pt ambulated using FWW with CGA/SBA with chair follow. Pt has make progress with ambulation increased roro, distance, and with TTWB. Pt had no increased pain with gait training. Walk 10 Feet Assistance Needed Adaptive equipment;Supervision;Incidenta l touching Physical Assistance Level No physical assistance CARE Score - Walk 10 Feet 4 Pt very focus on furthering distance with ambulation during PT. Pt has made progress and is motivated. Pt requires seated rest breaks between gait trials. Pt set up in room in recliner with SCD donned, chair alarm on, call light, and tray table in reach. 01/31/24 0909 Occupational Therapy Minutes Start Time 0909 Stop Time 0942 Time Calculation 33 Oral Hygiene Assistance Needed Set-up / clean-up Physical Assistance Level No physical assistance Comment Patient completed oral hygiene while seated after set up CARE Score - Oral Hygiene 5 Upper Body Dressing Assistance Needed Set-up / clean-up Physical Assistance Level No physical assistance Comment Patient donned open faced sweater after set -up CARE Score - Upper Body Dressing 5 Toileting Hygiene Assistance Needed Physical assistance;Adaptive equipment Physical Assistance Level 26%-50% Comment Patient attempted posterior chase hygiene in sitting, patient unable to perform in standing due to compromised standing balance with TTWB L LE. Prakash provided assist while patient standing using fww to complete posterior chase hygiene. CARE Score - Toileting Hygiene 3 Toilet Transfer Assistance Needed Adaptive equipment;Incidental touching Physical Assistance Level No physical assistance Comment Patient completed commode transfer using fww and raised commode with arm bars and CGA for safety. CARE Score - Toilet Transfer 4 S: Patient reported OT was scheduled for 8:30 and that it runs too close to PT. Patient reported just changed gown last night and doesn't need a new one on this morning. Also that she washed up last night. Patient reported needing new socks and that she had to sign a waver because she doesn't wear them as they come off during ambulation. O: Patient seen for ADLs (see above) in addition patient completed washing of face after set-up while seated. Patient ambulated to and from bathroom using fww for support. Patient dependant for donning partial sock to R foot. A: Prakash retrieved socks, patient cut 1 sock to fit on R foot and refused wear on L foot. Patient denied standing at sink to perform oral hygiene tasks and performed them seated (see above). P: Patient may benefit from standing balance and tolerance activity to increase I during oral hygiene and other ADL tasks. DEVIN Sullivan 01/31/2024 01/31/24 1036 Physical Therapy Minutes Start Time 1036 Stop Time 1100 Time Calculation 24 PT Individual Minutes 24 minutes General Pain Documentation (Adult, OB, Peds) Presence of Pain denies pain/discomfort Presence of Pain Score (Auto-calculated) 0 Sit to Stand Equipment Used Sit to Stand Equipment used arm rest;two wheeled walker Sit to Stand Assistance Needed Adaptive equipment;Incidental touching Physical Assistance Level No physical assistance Comment CGA using FWW and extra time needed to get into standing. Pt completed sit<>stand x 3 this session. CARE Score - Sit to Stand 4 Gait Assessment Distance Walked 40' and 60' Gait Equipment two-wheeled walker Deviations antalgic Gait Comments Pt ambulated 40'and 60' using FWW CGA TTWB LLE with chair follow d/t fatigue quickly. Pt demonstrated improve roro and sequencing. Walk 10 Feet Assistance Needed Adaptive equipment;Incidental touching Physical Assistance Level No physical assistance CARE Score - Walk 10 Feet 4 Pt requires several rest breaks during treatment and discussed plan for PM treatment. Infectious Disease progress note SUBJECTIVE History of Present Illness: Cuate Goodman 83 y.o. female with a history of left degenerative hip disease with ongoing left hip pain with reported decreased quality of life due to this condition. The patient was seen by Orthopedics and Dr. Heredia performed surgery 01/10 with a left total hip arthroplasty. Total hip arthroplastic surgery on 01/10 did not have noted complications or infectious issues per chart review. The patient was subsequently discharged after an admission from 01/10-01/18 on the med surg unit without stated ID issue. There was no antibiotics at time of discharge. Pathology from knee replacement surgery showed consistent with degenerative joint disease without mention of infection. Has history of previous right total hip arthroplasty and left total knee arthroplasty noted. Past medical history also includes obesity, degenerative joint disease and history of DVT and PE. Additional history includes right bundle-branch block, diastolic dysfunction, B12 deficiency, impaired fasting glucose with normal preoperative A1c, elevated uric acid level, GERD, urinary incontinence, history of abdominal aortic aneurysm. Patient does have a history of penicillin allergy resulting in hives but no other allergies to antibiotics noted. The patient denies any tobacco, alcohol or drug use. No prior use reported. Patient was subsequently admitted swing bed for rehabilitation on 01/18. Patient underwent pain control, PT/OT and ongoing medical management. Patient was noted to have erythema that began around her left hip site approximately on 01/18 or 01/19 per nursing report. There has been no described drainage from her hip. Patient denies any specific areas pain in her hip joint. There is no reported fevers or chills or night sweats at time of initial consultation. The patient denies any new respiratory, abdominal or urinary symptoms. Specifically she denies any UTI symptoms Infectious disease consult 01/21/2024, patient began on Zyvox for superficial postop infection, Interval events: 24 hour events reviewed. Patient continues to state she does not feel well and has very little appetite. Patient denied any vomiting or diarrhea. Redness of left hip is improved. No drainage or pain. Antibiotics were stopped. Discussed with her taking her off of antibiotics after treatment course and also discontinuing probiotics to see if this would help for intermittent stomach upset. Patient complains that her lips are dry but is using Vaseline. ROS A complete review of systems are negative except those consistent with HPI OBJECTIVE Past Medical History: Diagnosis Date Aortic aneurysm Arthritis Deep vein thrombosis (DVT) GERD (gastroesophageal reflux disease) Past Medical History: Diagnosis Date Aortic aneurysm Arthritis Deep vein thrombosis (DVT) GERD (gastroesophageal reflux disease) Past Surgical History: Procedure Laterality Date ARTHROPLASTY HIP TOTAL Left 01/11/2024 Laterality: Left; Surgeon: Erik Heredia MD; Location: [facility] OR NEPHRECTOMY Right 1978 CHOLECYSTECTOMY HIP REPLACEMENT Right HYSTERECTOMY KNEE REPLACEMENT Bilateral left x 2 LITHOTRIPSY multiple Patient Active Problem List Diagnosis S/P total hip arthroplasty Gout Aneurysm of ascending aorta without rupture Aneurysmal dilatation Closed fracture of hand Fracture of metacarpal bone Gastro-esophageal reflux disease without esophagitis Hypomagnesemia Lumbar spondylosis Mixed stress and urge urinary incontinence Morbid (severe) obesity due to excess calories Other disorders of plasma-protein metabolism, not elsewhere classified Pulmonary embolism Solitary kidney, acquired Thoracic aortic ectasia Unilateral primary osteoarthritis, left hip Unsteadiness on feet S/P total left hip arthroplasty Social History Socioeconomic History Marital status: Single Spouse name: Not on file Number of children: Not on file Years of education: Not on file Highest education level: Not on file Occupational History Not on file Tobacco Use Smoking status: Never Smokeless tobacco: Never Substance and Sexual Activity Alcohol use: Never Drug use: Never Sexual activity: Not on file Other Topics Concern Not on file Social History Narrative Not on file Social Determinants of Health Financial Resource Strain: Low Risk (01/21/2024) Overall Financial Resource Strain (CARDIA) Difficulty of Paying Living Expenses: Not very hard Food Insecurity: No Food Insecurity (01/21/2024) Hunger Vital Sign Worried About Running Out of Food in the Last Year: Never true Ran Out of Food in the Last Year: Never true Transportation Needs: No Transportation Needs (01/21/2024) PRAPARE - Transportation Lack of Transportation (Medical): No Lack of Transportation (Non-Medical): No Physical Activity: Not on file Stress: Not on file Social Connections: Not on file Intimate Partner Violence: Not At Risk (01/21/2024) Humiliation, Afraid, Rape, and Kick questionnaire Fear of Current or Ex-Partner: No Emotionally Abused: No Physically Abused: No Sexually Abused: No Housing Stability: Low Risk (01/21/2024) Housing Stability Vital Sign Unable to Pay for Housing in the Last Year: No Number of Places Lived in the Last Year: 1 Unstable Housing in the Last Year: No Current Facility-Administered Medications: Acetaminophen (TYLENOL) tablet 650 mg, 650 mg, Oral, Q4H PRN, Mohan Gomez MD, 650 mg at 01/21/24 1208 Allopurinol (ZYLOPRIM) tablet 100 mg, 100 mg, Oral, Daily, Mohan oGmez MD, 100 mg at 01/31/24 0909 apixaban (ELIQUIS) tablet 5 mg, 5 mg, Oral, Q12H, Mohan Gomez MD, 5 mg at 01/31/24 0909 bisacodyl (DULCOLAX) suppository 10 mg, 10 mg, Rectal, Daily PRN, Mohan Gomez MD Cyclobenzaprine (FLEXERIL) tablet 5 mg, 5 mg, Oral, Q12H, Mohan Gomez MD, 5 mg at 01/31/24908 Docusate (COLACE) capsule 100 mg, 100 mg, Oral, Q12H, Mohan Gomez MD, 100 mg at 01/31/24908 ferrous sulfate tablet 325 mg, 325 mg, Oral, Daily, Mohan Gomez MD, 325 mg at 01/31/24908 hydroCODone-acetaminophen (NORCO) 5-325 MG per tablet 1 tablet, 1 tablet, Oral, Q4H PRN, Mohan Gomez MD, 1 tablet at 01/31/24 135 hydroCODone-acetaminophen (NORCO) 5-325 MG per tablet 2 tablet, 2 tablet, Oral, Q4H PRN, Mohan Gomez MD, 2 tablet at 01/30/24 235 lactulose (CHRONULAC) oral solution 20 g, 20 g, Oral, TID PRN, Mohan Gomez MD Lisinopril (PRINIVIL) tablet 5 mg, 5 mg, Oral, Daily, Mohan Gomez MD, 5 mg at 01/30/24 0855 multivitamin tablet 1 tablet, 1 tablet, Oral, Daily, Mohan Gomez MD, 1 tablet at 01/31/24 09 nystatin (NYSTOP;MYCOSTATIN) powder 1 Application, 1 Application, Topical, 4x daily, Mohan Gomez MD, 1 Application at 01/31/24 135 Ondansetron (ZOFRAN) tablet 4 mg, 4 mg, Oral, Q4H PRN, Mohan Gomez MD, 4 mg at 01/30/242043 Pantoprazole (PROTONIX) tablet DR 40 mg, 40 mg, Oral, Daily, Mohan Gomez MD, 40 mg at 01/31/24909 Polyethylene glycol (MIRALAX) packet 17 g, 17 g, Oral, Q12H, Mohan Gomez MD, 17 g at 01/30/242043 Polyethylene glycol (MIRALAX) packet 17 g, 17 g, Oral, TID PRN, Mohan Gomez MD senna-docusate (SENOKOT-S) 8.6-50 MG per tablet 2 tablet, 2 tablet, Oral, Q12H, Mohan Gomez MD, 2 tablet at 01/30/242043 Tolterodine (DETROL-LA) capsule XL 4 mg, 4 mg, Oral, Daily, Mohan Gomez MD, 4 mg at 01/31/24 0909 Zolpidem (AMBIEN) tablet 5 mg, 5 mg, Oral, QHS PRN, Mohan Gomez MD, 5 mg at 01/30/24 2357 Allergies Allergen Reactions Morphine Nausea and Vomiting Other Reaction(s): GI intolerance Oxycodone Nausea and Vomiting Other Reaction(s): GI intolerance Penicillins Hives Vitals: 01/30/24 2000 01/31/24 0337 01/31/24 0708 01/31/24 0745 BP: 126/62 116/67 Pulse: 97 74 Resp: 16 17 Temp: 98.5 degrees F (36.9 degrees C) 98.3 degrees F (36.8 degrees C) TempSrc: Oral Oral SpO2: 91% 92% 91% Weight: 111.4 kg (245 lb 8 oz) Height: Intake/Output Summary (Last 24 hours) at 01/31/2024 1740 Last data filed at 01/31/2024 0800 Gross per 24 hour Intake 400 ml Output -- Net 400 ml Physical Exam: CONSTITUTIONAL: Alert and Oriented, in no distress, afebrile HEENT: Normocephalic and atraumatic, Sclera anicteric, PERRL, mild thrush, dry lips but do not appear severe CARDIAC: Normal rate, regular rhythm, normal heart sounds and intact distal pulses, no murmurs/rubs/clicks/gallops RESP: Effort normal and breath sounds are normal, but distant. No respiratory distress. No Wheezing/Rales/Cough, RA GI: Soft. Bowel sounds are normal. Nontender. Nondistended. Morbid obesity : No Suprapubic tenderness EXTREMITES: No cyanosis, clubbing; positive for history of left total knee arthroplasty. History of right total hip arthroplasty. Left total hip arthroplasty with incision with surrounding erythema, overall improved, no pain, no drainage. Left greater than right lower extremity edema DERM: Skin is warm and dry. No rash noted MUSCULARSKELETAL: No arthritis noted NEUROLOGIC: Alert and communicative LAB RESULTS: WBC (WHITE BLOOD COUNT) Date/Time Value Ref Range Status 01/31/2024 06:12 AM 5.1 3.6 - 11.0 10*3/uL Final 01/30/2024 04:15 AM 5.3 3.6 - 11.0 10*3/uL Final 01/29/2024 05:38 AM 4.7 3.6 - 11.0 10*3/uL Final 01/28/2024 06:43 AM 5.1 3.6 - 11.0 10*3/uL Final 01/27/2024 04:37 AM 5.4 3.6 - 11.0 10*3/uL Final 01/26/2024 04:33 AM 5.9 3.6 - 11.0 10*3/uL Final 01/25/2024 05:25 AM 5.7 3.6 - 11.0 10*3/uL Final HEMOGLOBIN (HGB) Date/Time Value Ref Range Status 01/31/2024 06:12 AM 10.0 (L) 12.0 - 16.0 G/DL Final 01/30/2024 04:15 AM 10.3 (L) 12.0 - 16.0 G/DL Final 01/29/2024 05:38 AM 10.0 (L) 12.0 - 16.0 G/DL Final 01/28/2024 06:43 AM 10.6 (L) 12.0 - 16.0 G/DL Final 01/27/2024 04:37 AM 10.3 (L) 12.0 - 16.0 G/DL Final 01/26/2024 04:33 AM 9.8 (L) 12.0 - 16.0 G/DL Final 01/25/2024 05:25 AM 10.1 (L) 12.0 - 16.0 G/DL Final HEMATOCRIT (HCT) Date/Time Value Ref Range Status 01/31/2024 06:12 AM 29.3 (L) 36.0 - 48.0 % Final 01/30/2024 04:15 AM 29.9 (L) 36.0 - 48.0 % Final 01/29/2024 05:38 AM 29.3 (L) 36.0 - 48.0 % Final 01/28/2024 06:43 AM 31.3 (L) 36.0 - 48.0 % Final 01/27/2024 04:37 AM 30.7 (L) 36.0 - 48.0 % Final 01/26/2024 04:33 AM 29.0 (L) 36.0 - 48.0 % Final 01/25/2024 05:25 AM 29.4 (L) 36.0 - 48.0 % Final PLATELET COUNT Date/Time Value Ref Range Status 01/31/2024 06:12 AM 439 (H) 130 - 400 10*3/uL Final 01/30/2024 04:15 AM 466 (H) 130 - 400 10*3/uL Final 01/29/2024 05:38 AM 438 (H) 130 - 400 10*3/uL Final 01/28/2024 06:43 AM 470 (H) 130 - 400 10*3/uL Final 01/27/2024 04:37 AM 438 (H) 130 - 400 10*3/uL Final 01/26/2024 04:33 AM 440 (H) 130 - 400 10*3/uL Final 01/25/2024 05:25 AM 440 (H) 130 - 400 10*3/uL Final POTASSIUM Date/Time Value Ref Range Status 01/31/2024 06:12 AM 4.5 3.5 - 5.1 MMOL/L Final 01/30/2024 04:15 AM 4.4 3.5 - 5.1 MMOL/L Final 01/29/2024 05:38 AM 4.2 3.5 - 5.1 MMOL/L Final 01/28/2024 06:43 AM 4.4 3.5 - 5.1 MMOL/L Final 01/27/2024 04:37 AM 4.0 3.5 - 5.1 MMOL/L Final 01/26/2024 04:33 AM 3.9 3.5 - 5.1 MMOL/L Final 01/25/2024 05:25 AM 3.8 3.5 - 5.1 MMOL/L Final CHLORIDE Date/Time Value Ref Range Status 01/31/2024 06:12 AM 102 98 - 107 MMOL/L Final Comment: Please note: Triglyceride levels of 600mg/dL or higher may positively bias chloride results by approximately 2.1 mmol 01/30/2024 04:15 AM 101 98 - 107 MMOL/L Final Comment: Please note: Triglyceride levels of 600mg/dL or higher may positively bias chloride results by approximately 2.1 mmol 01/29/2024 05:38 AM 101 98 - 107 MMOL/L Final Comment: Please note: Triglyceride levels of 600mg/dL or higher may positively bias chloride results by approximately 2.1 mmol 01/28/2024 06:43 AM 100 98 - 107 MMOL/L Final Comment: Please note: Triglyceride levels of 600mg/dL or higher may positively bias chloride results by approximately 2.1 mmol 01/27/2024 04:37 AM 102 98 - 107 MMOL/L Final Comment: Please note: Triglyceride levels of 600mg/dL or higher may positively bias chloride results by approximately 2.1 mmol 01/26/2024 04:33 AM 102 98 - 107 MMOL/L Final Comment: Please note: Triglyceride levels of 600mg/dL or higher may positively bias chloride results by approximately 2.1 mmol 01/25/2024 05:25 AM 101 98 - 107 MMOL/L Final Comment: Please note: Triglyceride levels of 600mg/dL or higher may positively bias chloride results by approximately 2.1 mmol CARBON DIOXIDE (CO2) Date/Time Value Ref Range Status 01/31/2024 06:12 AM 33 (H) 22 - 30 MMOL/L Final 01/30/2024 04:15 AM 31 (H) 22 - 30 MMOL/L Final 01/29/2024 05:38 AM 30 22 - 30 MMOL/L Final 01/28/2024 06:43 AM 33 (H) 22 - 30 MMOL/L Final 01/27/2024 04:37 AM 30 22 - 30 MMOL/L Final 01/26/2024 04:33 AM 31 (H) 22 - 30 MMOL/L Final 01/25/2024 05:25 AM 32 (H) 22 - 30 MMOL/L Final Glucose Date/Time Value Ref Range Status 01/31/2024 06:12 AM 94 70 - 100 MG/DL Final Comment: NORMAL <100 mg/dL PREDIABETES 101-126 mg/dL DIABETES 126 mg/dL or higher 01/30/2024 04:15 AM 93 70 - 100 MG/DL Final Comment: NORMAL <100 mg/dL PREDIABETES 101-126 mg/dL DIABETES 126 mg/dL or higher 01/29/2024 05:38 AM 94 70 - 100 MG/DL Final Comment: NORMAL <100 mg/dL PREDIABETES 101-126 mg/dL DIABETES 126 mg/dL or higher 01/28/2024 06:43 AM 86 70 - 100 MG/DL Final Comment: NORMAL <100 mg/dL PREDIABETES 101-126 mg/dL DIABETES 126 mg/dL or higher 01/27/2024 04:37 AM 98 70 - 100 MG/DL Final Comment: NORMAL <100 mg/dL PREDIABETES 101-126 mg/dL DIABETES 126 mg/dL or higher 01/26/2024 04:33 AM 109 (H) 70 - 100 MG/DL Final Comment: NORMAL <100 mg/dL PREDIABETES 101-126 mg/dL DIABETES 126 mg/dL or higher 01/25/2024 05:25 AM 92 70 - 100 MG/DL Final Comment: NORMAL <100 mg/dL PREDIABETES 101-126 mg/dL DIABETES 126 mg/dL or higher BUN Date/Time Value Ref Range Status 01/31/2024 06:12 AM 12 7 - 20 MG/DL Final 01/30/2024 04:15 AM 10 7 - 20 MG/DL Final 01/29/2024 05:38 AM 9 7 - 20 MG/DL Final 01/28/2024 06:43 AM 11 7 - 20 MG/DL Final 01/27/2024 04:37 AM 11 7 - 20 MG/DL Final 01/26/2024 04:33 AM 12 7 - 20 MG/DL Final 01/25/2024 05:25 AM 6 (L) 7 - 20 MG/DL Final CREATININE SERUM Date/Time Value Ref Range Status 01/31/2024 06:12 AM 1.10 0.7 - 1.2 MG/DL Final 01/30/2024 04:15 AM 1.00 0.7 - 1.2 MG/DL Final 01/29/2024 05:38 AM 0.80 0.7 - 1.2 MG/DL Final 01/28/2024 06:43 AM 0.80 0.7 - 1.2 MG/DL Final 01/27/2024 04:37 AM 0.70 0.7 - 1.2 MG/DL Final 01/26/2024 04:33 AM 0.70 0.7 - 1.2 MG/DL Final 01/25/2024 05:25 AM 0.70 0.7 - 1.2 MG/DL Final Albumin Date/Time Value Ref Range Status 01/31/2024 06:12 AM 3.0 (L) 3.5 - 5.0 G/DL Final 01/23/2024 04:37 AM 2.6 (L) 3.5 - 5.0 G/DL Final 01/17/2024 04:31 AM 2.6 (L) 3.5 - 5.0 G/dl Final 12/16/2023 12:35 PM 4.0 3.5 - 5.0 G/dl Final CALCIUM Date/Time Value Ref Range Status 01/31/2024 06:12 AM 8.7 8.4 - 10.2 MG/DL Final 01/30/2024 04:15 AM 8.6 8.4 - 10.2 MG/DL Final 01/29/2024 05:38 AM 8.3 (L) 8.4 - 10.2 MG/DL Final 01/28/2024 06:43 AM 8.8 8.4 - 10.2 MG/DL Final 01/27/2024 04:37 AM 8.6 8.4 - 10.2 MG/DL Final 01/26/2024 04:33 AM 8.2 (L) 8.4 - 10.2 MG/DL Final 01/25/2024 05:25 AM 8.3 (L) 8.4 - 10.2 MG/DL Final ALKALINE PHOSPHATASE Date/Time Value Ref Range Status 01/31/2024 06:12 AM 107 38 - 126 IU/L Final 01/23/2024 04:37 AM 99 38 - 126 IU/L Final 12/16/2023 12:35 PM 89 38 - 126 IU/L Final AST Date/Time Value Ref Range Status 01/31/2024 06:12 AM 26 14 - 36 IU/L Final 01/23/2024 04:37 AM 25 14 - 36 IU/L Final 12/16/2023 12:35 PM 25 14 - 36 IU/L Final BILIRUBIN, TOTAL Date/Time Value Ref Range Status 01/31/2024 06:12 AM 0.2 0.2 - 1.3 MG/DL Final 01/23/2024 04:37 AM 0.3 0.2 - 1.3 MG/DL Final 12/16/2023 12:35 PM 0.3 0.2 - 1.3 MG/DL Final ANION GAP Date/Time Value Ref Range Status 01/31/2024 06:12 AM NEG 1 8 - 16 MMOL/L Final 01/30/2024 04:15 AM 3 (L) 8 - 16 MMOL/L Final 01/29/2024 05:38 AM 3 (L) 8 - 16 MMOL/L Final 01/28/2024 06:43 AM 3 (L) 8 - 16 MMOL/L Final 01/27/2024 04:37 AM 3 (L) 8 - 16 MMOL/L Final 01/26/2024 04:33 AM 1 (L) 8 - 16 MMOL/L Final 01/25/2024 05:25 AM 3 (L) 8 - 16 MMOL/L Final ALT Date/Time Value Ref Range Status 01/31/2024 06:12 AM 13 <35 IU/L Final 01/23/2024 04:37 AM 10 <35 IU/L Final 12/16/2023 12:35 PM 16 <35 IU/L Final ESTIMATED GFR, NON AMER Date/Time Value Ref Range Status 01/31/2024 06:12 AM 51 ml/min/1.73sq.m Final 01/30/2024 04:15 AM 57 ml/min/1.73sq.m Final 01/29/2024 05:38 AM 73 ml/min/1.73sq.m Final 01/28/2024 06:43 AM 73 ml/min/1.73sq.m Final 01/27/2024 04:37 AM 85 ml/min/1.73sq.m Final 01/26/2024 04:33 AM 85 ml/min/1.73sq.m Final 01/25/2024 05:25 AM 85 ml/min/1.73sq.m Final ESTIMATED GFR, Date/Time Value Ref Range Status 01/31/2024 06:12 AM 61 ml/min/1.73sq.m Final 01/30/2024 04:15 AM 68 ml/min/1.73sq.m Final 01/29/2024 05:38 AM 89 ml/min/1.73sq.m Final 01/28/2024 06:43 AM 89 ml/min/1.73sq.m Final 01/27/2024 04:37 AM 103 ml/min/1.73sq.m Final 01/26/2024 04:33 AM 103 ml/min/1.73sq.m Final 01/25/2024 05:25 AM 103 ml/min/1.73sq.m Final GFR COMMENT Date/Time Value Ref Range Status 01/31/2024 06:12 AM Average GFR for 70+ years old = 75. Final Comment: Chronic Kidney disease, GFR = <60. Kidney failure, GFR = <15. The GFR estimate is not adjusted for extreme body surface area or acute process, nor has it been validated for women or ethnic groups other than and . CBC Lab Results Component Value Date WBC 5.1 01/31/2024 HGB 10.0 (L) 01/31/2024 HCT 29.3 (L) 01/31/2024 PLATELET 439 (H) 01/31/2024 MCV 95.2 01/31/2024 EDIF Lab Results Component Value Date RBCDISTRIBU 14.9 (H) 01/31/2024 EOSINOPHILS 3.6 01/31/2024 EOSINOPHILS 0.2 01/31/2024 BASOPHILS 1.4 01/31/2024 BASOPHILS 0.1 01/31/2024 LYMPHOCYTABS 1.5 01/31/2024 PLATELET 439 (H) 01/31/2024 MPV 6.3 (L) 01/31/2024 Lab Results Component Value Date SODIUM 134 (L) 01/31/2024 POTASSIUM 4.5 01/31/2024 CHLORIDE 102 01/31/2024 CO2 33 (H) 01/31/2024 BUN 12 01/31/2024 CREATSERUM 1.10 01/31/2024 GLUCOSE 94 01/31/2024 Micro C difficile stool 01/23- Urine culture 01/20- 01/20 Nares - 12/16/2023 positive nares test for MSSA 12/15 urine test positive for Klebsiella only resistant to ampicillin and Macrobid XR CHEST 1 VIEW PORTABLE Final Result IMPRESSION: 1. Cardiomegaly. 2. Aortic tortuosity. 3. Minor effusion in the left lung base is suspected. 4. Both lungs are expanded. I am not seeing any obvious displaced fracture although detail is limited. There are accentuated interstitial markings which may well be chronic. ASSESSMENT AND PLAN . Cuate Goodman 83 y.o. with a history of multiple medical problems including DVT/PE, morbid obesity, degenerative joint disease presents with left hip pain undergoing left total hip arthroplasty on 01/10 showing degenerative changes Left total hip arthroplasty, concern for superficial wound infection -history of development of erythema around the incision site on 01/18 or 01/19 without systemic signs of infection -check wound culture if there is any drainage - none currently -perioperative nares culture was positive for MSSA, repeat culture 01/20 negative -antibiotic therapy will be given especially in the setting of underlying hardware in the postop period to try to prevent any spread of superficial infection to deeper areas of hardware and this was discussed with her and all questions answered -s/p zyvox 01/20-01/26 -s/p Septra 01/26-01/29 -s/p mupirocin twice daily, 01/22-01/26 -recommend avoiding any rubbing of the undergarments, discussed with nursing -status post 10 day course of antibiotics, discontinued on 01/29. History of Klebsiella positive urine culture -urinalysis 12/15 with too numerous to count white cells and +3 bacteria -history of Klebsiella positive urine culture in November of 2023 only resistant to ampicillin and Macrobid -patient denies any urinary symptoms and UA bland, culture 01/20 negative Inflammatory markers -check Trends -CRP 58, 42, 46, 33, 28, 28, 30, 28, 25, 27 -ESR 71 -CRP trends improving/stable Anemia -hemoglobin 9.5, 10.7, 10, 10.1, 10.1, 9.8, 10.3, 10.6, 10, 10.3, 10 -previous anemia workup in November of 2022 was negative with normal iron, B12 and folate studies -Fe 37 -hemoglobin stable Thrombocytosis -platelets 440, 438, 470, 438, 466, 439 -suspect this is reactive, continue to follow and remains elevated Healthcare maintenance -hemoglobin A1c normal at 5.7 on 12/15 History of DVT/PE -anticoagulation per primary team Disposition -ongoing PT/OT Diarrhea, history -C diff testing and GI pathogen panel negative -probiotic prescribed. -suspicious for a viral process -Resolved Nausea/poor appetite -lipase, LFTs were not abnormal 01/30 Nutrition -pre albumin low at 11.9 -encourage p.o. intake Mild oral thrush -nystatin swish and swallow, continue symptomatic treatment of lip dryness Increased creatinine Creatinine 0.7 to 1.0, 1.1 -Ensure adequate hydration, Off of abx Janet Moreno MD DAILY PROGRESS NOTE Admit Date: 01/19/2024 Date of Evaluation: :41 PM [facility] LOS: 11 days IMPRESSION AND PLAN: 83 y.o. 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 1) Severe left hip arthritis s/p total hip arthroplasty PT/OT Continue with eliquis Continue with flexeril Continue with norco PRN Continue with senokot PRN Continue with tramadol PRN Encourage compliance with PT/OT. 2) Chronic normocytic anemia H and H 9.8 -> 9.5 -> 10.7 -> 10.0 -> 10.1 -> 9.8 -> 10.3 -> 10.6 -> 10.0 -> 10.3 and 29.2 -> 27.7 -> 31.8 -> 29.1 -> 29.3 -> 29.4 -> 29.0 -> 30.7 -> 31.3 -> >29.3 -> 29.9 Fe 29, TIBC 144, transferrin 20 Continue with iron Serial CBC 3) Gout Currently on allopurinol 4) GERD Currently on protonix. 5) Diarrhea Probably viral C. Diff is negative GI panel is negative. Workup is negative to-date Improved. Supportive care. Monitor for hypotension Monitor for hypokalemia 6) Cellulitis Antibiotic therapy will be given especially in the setting of underlying hardware in the postop period to try to prevent any spread of superficial infection to deeper areas of hardware CRP 58.3 -> 33.6 -> 28.4 -> 30.5 -> 28.9 -> 25.8, stable. Finished a course of linezolid Finished a course of bactrobran Continue with bactrim DS BID. Continue with nystatin Encourage PO intake. Followed by ID 7) HTN SBP 120/90s Continue with lisinopril. SUBJECTIVE: Patient seen and examined. Chart, medications, labs reviewed. Admission on 01/11/2024, Discharged on 01/19/2024 Component Date Value Ref Range Status ABO/RH(D) 01/11/2024 O POSITIVE Final PT 01/11/2024 14.2 11.8 - 14.4 SEC Final INR 01/11/2024 1.09 0.85 - 1.10 Final Comment: 2.0-3.0 THERAPEUTIC RANGE 2.5-3.5 MECHANICAL VALVE RANGE SURG PATH RESULT 01/11/2024 Final Value: Surgical Final Report Patient Name: CUATE GOODMAN [facility]. Rec. #: [id number] Physician: ERIK HEREDIA Specimen(s) Received Left femoral head Clinical / Pre-Operative Diagnosis Osteoarthritis of left hip unspecified osteoarthritis type Post-Operative Diagnosis Not provided Surgical Procedure Arthroplasty hip total latera approach Diagnosis: Left femoral head, Excision: -Consistent with degenerative joint disease Electronically Signed lks/01/13/2024 Khoa Vieyra DO Gross Description: The specimen is received in formalin, and labeled left femoral head, Cuate Goodman and date of 1940. The specimen consists of a femoral head and neck measuring 5.5 x 5 x 5 cm with articular cartilage degeneration. Sectioning reveals unremarkable bone. Hip Hop Artist sections are submitted in one cassette and placed in decalcification solution prior to processing. Billing Fee Code(s) A: 80408, 95266 WBC (WHITE BLOOD COUNT) 01/12/2024 10.5 3.6 - 11.0 10*3/uL Final RBC 01/12/2024 3.48 (L) 4.0 - 5.4 10*6/uL Final HEMOGLOBIN (HGB) 01/12/2024 10.9 (L) 12.0 - 16.0 G/DL Final HEMATOCRIT (HCT) 01/12/2024 33.3 (L) 36.0 - 48.0 % Final MEAN CELL VOLUME 01/12/2024 95.7 80.0 - 100.0 FL Final Mean Cell HGB 01/12/2024 31.4 26.0 - 35.0 PG Final MEAN CELL HGB CONCENTRATION 01/12/2024 32.8 27.0 - 37.0 G/DL Final RBC DISTRIBUTION 01/12/2024 14.3 11.5 - 14.5 % Final PLATELET COUNT 01/12/2024 247 130 - 400 10*3/uL Final MEAN PLATELET VOLUME 01/12/2024 8.2 7.4 - 11.0 FL Final DIFFERENTIAL TYPE 01/12/2024 AUTO DIFF % Final NEUTROPHILS 01/12/2024 89.5 (H) 37.0 - 75.0 % Final LYMPHOCYTE 01/12/2024 5.9 (L) 20.0 - 55.0 % Final MONOCYTE % 01/12/2024 4.5 0.0 - 10.0 % Final EOSINOPHIL % 01/12/2024 0.0 0.0 - 11.0 % Final BASOPHIL % 01/12/2024 0.1 0.0 - 2.0 % Final Absolute Neutrophil Count 01/12/2024 9.4 (H) 1.4 - 6.5 10*3/uL Final LYMPHOCYTES, ABSOLUTE 01/12/2024 0.6 (L) 1.2 - 3.4 10*3/uL Final MONOCYTES, ABSOLUTE 01/12/2024 0.5 0.0 - 0.7 10*3/uL Final ABSOLUTE EOSINOPHIL COUNT 01/12/2024 0.0 0.0 - 0.7 10*3/uL Final ABSOLUTE BASOPHIL COUNT 01/12/2024 0.0 0.0 - 0.2 10*3/uL Final Glucose 01/12/2024 179 (H) 70 - 100 MG/DL Final Comment: NORMAL <100 mg/dL PREDIABETES 101-126 mg/dL DIABETES 126 mg/dL or higher BUN 01/12/2024 16 7 - 20 MG/DL Final CREATININE SERUM 01/12/2024 0.70 0.70 - 1.20 MG/DL Final SODIUM 01/12/2024 138 137 - 145 MMOL/L Final POTASSIUM 01/12/2024 4.0 3.5 - 5.1 MMOL/L Final CHLORIDE 01/12/2024 105 98 - 107 MMOL/L Final Please note: Triglyceride levels of 600mg/dL or higher may positively bias chloride results by approximately 2.1 mmol CARBON DIOXIDE (CO2) 01/12/2024 24 22 - 30 MMOL/L Final ANION GAP 01/12/2024 9 MMOL/L Final CALCIUM 01/12/2024 9.1 8.4 - 10.2 MG/DL Final ESTIMATED GFR, NON AMER 01/12/2024 85 ml/min/1.73sq.m Final ESTIMATED GFR, 01/12/2024 103 ml/min/1.73sq.m Final GFR COMMENT 01/12/2024 Average GFR for 70+ years old = 75. Final Comment: Chronic Kidney disease, GFR = <60. Kidney failure, GFR = <15. The GFR estimate is not adjusted for extreme body surface area or acute process, nor has it been validated for women or ethnic groups other than and . WBC (WHITE BLOOD COUNT) 01/13/2024 10.0 3.6 - 11.0 10*3/uL Final RBC 01/13/2024 3.31 (L) 4.0 - 5.4 10*6/uL Final HEMOGLOBIN (HGB) 01/13/2024 10.6 (L) 12.0 - 16.0 G/DL Final HEMATOCRIT (HCT) 01/13/2024 31.8 (L) 36.0 - 48.0 % Final MEAN CELL VOLUME 01/13/2024 95.9 80.0 - 100.0 FL Final Mean Cell HGB 01/13/2024 31.9 26.0 - 35.0 PG Final MEAN CELL HGB CONCENTRATION 01/13/2024 33.2 27.0 - 37.0 G/DL Final RBC DISTRIBUTION 01/13/2024 14.5 11.5 - 14.5 % Final PLATELET COUNT 01/13/2024 228 130 - 400 10*3/uL Final MEAN PLATELET VOLUME 01/13/2024 8.1 7.4 - 11.0 FL Final DIFFERENTIAL TYPE 01/13/2024 AUTO DIFF % Final NEUTROPHILS 01/13/2024 85.8 (H) 37.0 - 75.0 % Final LYMPHOCYTE 01/13/2024 5.9 (L) 20.0 - 55.0 % Final MONOCYTE % 01/13/2024 8.3 0.0 - 10.0 % Final EOSINOPHIL % 01/13/2024 0.0 0.0 - 11.0 % Final BASOPHIL % 01/13/2024 0.0 0.0 - 2.0 % Final Absolute Neutrophil Count 01/13/2024 8.6 (H) 1.4 - 6.5 10*3/uL Final LYMPHOCYTES, ABSOLUTE 01/13/2024 0.6 (L) 1.2 - 3.4 10*3/uL Final MONOCYTES, ABSOLUTE 01/13/2024 0.8 (H) 0.0 - 0.7 10*3/uL Final ABSOLUTE EOSINOPHIL COUNT 01/13/2024 0.0 0.0 - 0.7 10*3/uL Final ABSOLUTE BASOPHIL COUNT 01/13/2024 0.0 0.0 - 0.2 10*3/uL Final Glucose 01/13/2024 164 (H) 70 - 100 MG/DL Final Comment: NORMAL <100 mg/dL PREDIABETES 101-126 mg/dL DIABETES 126 mg/dL or higher BUN 01/13/2024 19 7 - 20 MG/DL Final CREATININE SERUM 01/13/2024 0.70 0.70 - 1.20 MG/DL Final SODIUM 01/13/2024 137 137 - 145 MMOL/L Final POTASSIUM 01/13/2024 4.2 3.5 - 5.1 MMOL/L Final CHLORIDE 01/13/2024 107 98 - 107 MMOL/L Final Please note: Triglyceride levels of 600mg/dL or higher may positively bias chloride results by approximately 2.1 mmol CARBON DIOXIDE (CO2) 01/13/2024 26 22 - 30 MMOL/L Final ANION GAP 01/13/2024 4 MMOL/L Final CALCIUM 01/13/2024 9.0 8.4 - 10.2 MG/DL Final ESTIMATED GFR, NON AMER 01/13/2024 85 ml/min/1.73sq.m Final ESTIMATED GFR, 01/13/2024 103 ml/min/1.73sq.m Final GFR COMMENT 01/13/2024 Average GFR for 70+ years old = 75. Final Comment: Chronic Kidney disease, GFR = <60. Kidney failure, GFR = <15. The GFR estimate is not adjusted for extreme body surface area or acute process, nor has it been validated for women or ethnic groups other than and . TROPONIN I, HIGH SENSITIVITY 01/13/2024 9 0 - 12 pg/mL Final Comment: Indeterminant: >12 to 100 pg/mL female >20 to 100 pg/mL male Indicative of myocardial injury. Serial sampling is recommended, a change of greater than or equal to 20 pg/mL is indicative of acute coronary syndrome. TROPONIN I, HIGH SENSITIVITY 01/13/2024 10 0 - 12 pg/mL Final Comment: Indeterminant: >12 to 100 pg/mL female >20 to 100 pg/mL male Indicative of myocardial injury. Serial sampling is recommended, a change of greater than or equal to 20 pg/mL is indicative of acute coronary syndrome. TROPONIN I, HIGH SENSITIVITY 01/13/2024 14 (H) 0 - 12 pg/mL Final Comment: Indeterminant: >12 to 100 pg/mL female >20 to 100 pg/mL male Indicative of myocardial injury. Serial sampling is recommended, a change of greater than or equal to 20 pg/mL is indicative of acute coronary syndrome. WBC (WHITE BLOOD COUNT) 01/14/2024 9.9 3.6 - 11.0 10*3/uL Final RBC 01/14/2024 3.35 (L) 4.0 - 5.4 10*6/uL Final HEMOGLOBIN (HGB) 01/14/2024 10.5 (L) 12.0 - 16.0 G/DL Final HEMATOCRIT (HCT) 01/14/2024 32.1 (L) 36.0 - 48.0 % Final MEAN CELL VOLUME 01/14/2024 96.0 80.0 - 100.0 FL Final Mean Cell HGB 01/14/2024 31.4 26.0 - 35.0 PG Final MEAN CELL HGB CONCENTRATION 01/14/2024 32.8 27.0 - 37.0 G/DL Final RBC DISTRIBUTION 01/14/2024 14.6 (H) 11.5 - 14.5 % Final PLATELET COUNT 01/14/2024 226 130 - 400 10*3/uL Final MEAN PLATELET VOLUME 01/14/2024 8.4 7.4 - 11.0 FL Final DIFFERENTIAL TYPE 01/14/2024 AUTO DIFF % Final NEUTROPHILS 01/14/2024 77.4 (H) 37.0 - 75.0 % Final LYMPHOCYTE 01/14/2024 11.0 (L) 20.0 - 55.0 % Final MONOCYTE % 01/14/2024 10.8 (H) 0.0 - 10.0 % Final EOSINOPHIL % 01/14/2024 0.5 0.0 - 11.0 % Final BASOPHIL % 01/14/2024 0.3 0.0 - 2.0 % Final Absolute Neutrophil Count 01/14/2024 7.6 (H) 1.4 - 6.5 10*3/uL Final LYMPHOCYTES, ABSOLUTE 01/14/2024 1.1 (L) 1.2 - 3.4 10*3/uL Final MONOCYTES, ABSOLUTE 01/14/2024 1.1 (H) 0.0 - 0.7 10*3/uL Final ABSOLUTE EOSINOPHIL COUNT 01/14/2024 0.1 0.0 - 0.7 10*3/uL Final ABSOLUTE BASOPHIL COUNT 01/14/2024 0.0 0.0 - 0.2 10*3/uL Final WBC (WHITE BLOOD COUNT) 01/17/2024 6.8 3.6 - 11.0 10*3/uL Final RBC 01/17/2024 3.09 (L) 4.0 - 5.4 10*6/uL Final HEMOGLOBIN (HGB) 01/17/2024 9.8 (L) 12.0 - 16.0 G/DL Final HEMATOCRIT (HCT) 01/17/2024 29.2 (L) 36.0 - 48.0 % Final MEAN CELL VOLUME 01/17/2024 94.6 80.0 - 100.0 FL Final Mean Cell HGB 01/17/2024 31.8 26.0 - 35.0 PG Final MEAN CELL HGB CONCENTRATION 01/17/2024 33.6 27.0 - 37.0 G/DL Final RBC DISTRIBUTION 01/17/2024 13.9 11.5 - 14.5 % Final PLATELET COUNT 01/17/2024 279 130 - 400 10*3/uL Final MEAN PLATELET VOLUME 01/17/2024 7.9 7.4 - 11.0 FL Final DIFFERENTIAL TYPE 01/17/2024 AUTO DIFF % Final NEUTROPHILS 01/17/2024 69.1 37.0 - 75.0 % Final LYMPHOCYTE 01/17/2024 16.5 (L) 20.0 - 55.0 % Final MONOCYTE % 01/17/2024 11.9 (H) 0.0 - 10.0 % Final EOSINOPHIL % 01/17/2024 1.9 0.0 - 11.0 % Final BASOPHIL % 01/17/2024 0.6 0.0 - 2.0 % Final Absolute Neutrophil Count 01/17/2024 4.7 1.4 - 6.5 10*3/uL Final LYMPHOCYTES, ABSOLUTE 01/17/2024 1.1 (L) 1.2 - 3.4 10*3/uL Final MONOCYTES, ABSOLUTE 01/17/2024 0.8 (H) 0.0 - 0.7 10*3/uL Final ABSOLUTE EOSINOPHIL COUNT 01/17/2024 0.1 0.0 - 0.7 10*3/uL Final ABSOLUTE BASOPHIL COUNT 01/17/2024 0.0 0.0 - 0.2 10*3/uL Final Glucose 01/17/2024 106 (H) 70 - 100 MG/DL Final Comment: NORMAL <100 mg/dL PREDIABETES 101-126 mg/dL DIABETES 126 mg/dL or higher BUN 01/17/2024 10 7 - 20 MG/DL Final CREATININE SERUM 01/17/2024 0.51 (L) 0.70 - 1.20 MG/DL Final SODIUM 01/17/2024 135 (L) 137 - 145 MMOL/L Final POTASSIUM 01/17/2024 3.3 (L) 3.5 - 5.1 MMOL/L Final CHLORIDE 01/17/2024 105 98 - 107 MMOL/L Final Please note: Triglyceride levels of 600mg/dL or higher may positively bias chloride results by approximately 2.1 mmol CARBON DIOXIDE (CO2) 01/17/2024 29 22 - 30 MMOL/L Final Albumin 01/17/2024 2.6 (L) 3.5 - 5.0 G/dl Final CALCIUM 01/17/2024 8.2 (L) 8.4 - 10.2 MG/DL Final PHOSPHORUS 01/17/2024 2.6 2.5 - 4.5 MG/DL Final ESTIMATED GFR, NON AMER 01/17/2024 123 ml/min/1.73sq.m Final ESTIMATED GFR, 01/17/2024 149 ml/min/1.73sq.m Final GFR COMMENT 01/17/2024 Average GFR for 70+ years old = 75. Final Comment: Chronic Kidney disease, GFR = <60. Kidney failure, GFR = <15. The GFR estimate is not adjusted for extreme body surface area or acute process, nor has it been validated for women or ethnic groups other than and . Glucose 01/18/2024 119 (H) 70 - 100 MG/DL Final Comment: NORMAL <100 mg/dL PREDIABETES 101-126 mg/dL DIABETES 126 mg/dL or higher BUN 01/18/2024 10 7 - 20 MG/DL Final CREATININE SERUM 01/18/2024 0.60 (L) 0.70 - 1.20 MG/DL Final SODIUM 01/18/2024 135 (L) 137 - 145 MMOL/L Final POTASSIUM 01/18/2024 3.5 3.5 - 5.1 MMOL/L Final CHLORIDE 01/18/2024 105 98 - 107 MMOL/L Final Please note: Triglyceride levels of 600mg/dL or higher may positively bias chloride results by approximately 2.1 mmol CARBON DIOXIDE (CO2) 01/18/2024 27 22 - 30 MMOL/L Final ANION GAP 01/18/2024 3 MMOL/L Final CALCIUM 01/18/2024 8.4 8.4 - 10.2 MG/DL Final ESTIMATED GFR, NON AMER 01/18/2024 102 ml/min/1.73sq.m Final ESTIMATED GFR, 01/18/2024 123 ml/min/1.73sq.m Final GFR COMMENT 01/18/2024 Average GFR for 70+ years old = 75. Final Comment: Chronic Kidney disease, GFR = <60. Kidney failure, GFR = <15. The GFR estimate is not adjusted for extreme body surface area or acute process, nor has it been validated for women or ethnic groups other than and . LABS Labs-ABGs Labs-CBC @[id number]@ Labs-Chem 7([facility]) Bun/Creat/Cl/CO2/Glucose: 04/18.00/101/31/93 (01/29 415) Na/K+/Phos/Mg/Ca: 135/4.4/--/--/8.6 (01/29 415) Labs-Coags WBC (WHITE BLOOD COUNT) Date Value Ref Range Status 01/30/2024 5.3 3.6 - 11.0 10*3/uL Final 01/29/2024 4.7 3.6 - 11.0 10*3/uL Final 01/28/2024 5.1 3.6 - 11.0 10*3/uL Final HEMOGLOBIN (HGB) Date Value Ref Range Status 01/30/2024 10.3 (L) 12.0 - 16.0 G/DL Final 01/29/2024 10.0 (L) 12.0 - 16.0 G/DL Final 01/28/2024 10.6 (L) 12.0 - 16.0 G/DL Final HEMATOCRIT (HCT) Date Value Ref Range Status 01/30/2024 29.9 (L) 36.0 - 48.0 % Final 01/29/2024 29.3 (L) 36.0 - 48.0 % Final 01/28/2024 31.3 (L) 36.0 - 48.0 % Final PLATELET COUNT Date Value Ref Range Status 01/30/2024 466 (H) 130 - 400 10*3/uL Final 01/29/2024 438 (H) 130 - 400 10*3/uL Final 01/28/2024 470 (H) 130 - 400 10*3/uL Final SODIUM Date Value Ref Range Status 01/30/2024 135 (L) 137 - 145 MMOL/L Final 01/29/2024 134 (L) 137 - 145 MMOL/L Final 01/28/2024 136 (L) 137 - 145 MMOL/L Final CHLORIDE Date Value Ref Range Status 01/30/2024 101 98 - 107 MMOL/L Final Comment: Please note: Triglyceride levels of 600mg/dL or higher may positively bias chloride results by approximately 2.1 mmol 01/29/2024 101 98 - 107 MMOL/L Final Comment: Please note: Triglyceride levels of 600mg/dL or higher may positively bias chloride results by approximately 2.1 mmol 01/28/2024 100 98 - 107 MMOL/L Final Comment: Please note: Triglyceride levels of 600mg/dL or higher may positively bias chloride results by approximately 2.1 mmol BUN Date Value Ref Range Status 01/30/2024 10 7 - 20 MG/DL Final 01/29/2024 9 7 - 20 MG/DL Final 01/28/2024 11 7 - 20 MG/DL Final POTASSIUM Date Value Ref Range Status 01/30/2024 4.4 3.5 - 5.1 MMOL/L Final 01/29/2024 4.2 3.5 - 5.1 MMOL/L Final 01/28/2024 4.4 3.5 - 5.1 MMOL/L Final CREATININE SERUM Date Value Ref Range Status 01/30/2024 1.00 0.7 - 1.2 MG/DL Final 01/29/2024 0.80 0.7 - 1.2 MG/DL Final 01/28/2024 0.80 0.7 - 1.2 MG/DL Final Glucose Date Value Ref Range Status 01/30/2024 93 70 - 100 MG/DL Final Comment: NORMAL <100 mg/dL PREDIABETES 101-126 mg/dL DIABETES 126 mg/dL or higher 01/29/2024 94 70 - 100 MG/DL Final Comment: NORMAL <100 mg/dL PREDIABETES 101-126 mg/dL DIABETES 126 mg/dL or higher 01/28/2024 86 70 - 100 MG/DL Final Comment: NORMAL <100 mg/dL PREDIABETES 101-126 mg/dL DIABETES 126 mg/dL or higher PT Date Value Ref Range Status 01/11/2024 14.2 11.8 - 14.4 SEC Final 12/16/2023 17.9 (H) 11.8 - 14.4 SEC Final PROTEIN, TOTAL Date Value Ref Range Status 01/23/2024 5.6 (L) 6.3 - 8.2 GM/DL Final 12/16/2023 7.2 6.3 - 8.2 GM/DL Final Albumin Date Value Ref Range Status 01/23/2024 2.6 (L) 3.5 - 5.0 G/DL Final 01/17/2024 2.6 (L) 3.5 - 5.0 G/dl Final 12/16/2023 4.0 3.5 - 5.0 G/dl Final AST Date Value Ref Range Status 01/23/2024 25 14 - 36 IU/L Final 12/16/2023 25 14 - 36 IU/L Final ALT Date Value Ref Range Status 01/23/2024 10 <35 IU/L Final 12/16/2023 16 <35 IU/L Final BILIRUBIN, TOTAL Date Value Ref Range Status 01/23/2024 0.3 0.2 - 1.3 MG/DL Final CALCIUM Date Value Ref Range Status 01/30/2024 8.6 8.4 - 10.2 MG/DL Final 01/29/2024 8.3 (L) 8.4 - 10.2 MG/DL Final 01/28/2024 8.8 8.4 - 10.2 MG/DL Final PHOSPHORUS Date Value Ref Range Status 01/17/2024 2.6 2.5 - 4.5 MG/DL Final Lab Results Component Value Date CREATSERUM 1.00 01/30/2024 BUN 10 01/30/2024 SODIUM 135 (L) 01/30/2024 POTASSIUM 4.4 01/30/2024 CHLORIDE 101 01/30/2024 CO2 31 (H) 01/30/2024 ROS: Constitution: No fever, no chill HEENT: No headache, no sinus issues CV: No chest pain, no palpitation Lung: No cough, No SOB Abd: No diarrhea, no constipation Neuro: No seizure, no loss of consciousness Heme: No bleeding, no bruise PHYSICAL EXAM: Wt Readings from Last 3 Encounters: 01/30/24 112.5 kg (248 lb 1.6 oz) 12/08/23 103 kg (227 lb) 12/01/23 103 kg (227 lb) Temp Readings from Last 3 Encounters: 01/30/24 98.6 F (37 C) (Oral) 01/19/24 98.2 F (36.8 C) (Temporal) BP Readings from Last 3 Encounters: 01/30/24 118/68 01/19/24 137/62 12/16/23 135/89 Pulse Readings from Last 3 Encounters: 01/30/24 82 01/19/24 89 12/16/23 73 Gen: NAD, lying in bed, conversant HEENT: Atraumatic, PERRLA, moist membrane CV: RRR, nl S1 and S2, no m/g/r Lung: CTAB, no wheezing, no crackle Abd: +BS, nontender, no distended Ext: No rash, no clubbing, no cyanosis. No edema. Neuro: CNII-XII grossly intact, 5/5 strength, normal tone Skin: Warm and dry 01/30/24 1033 Occupational Therapy Minutes Start Time 1033 Stop Time 1036 Time Calculation 3 Missed Therapy Minutes Reason Patient refused Attempted therapy this date with pt politely refusing therapy this date secondary to overall not feeling well. Pt upset with not feeling well and not being able to engage in therapy this date. Pt left seated in room chair with all needs met and nursing aware of pt not feeling well. RiyaDEVIN [place] 01/30/2024 01/30/24 0931 Physical Therapy Minutes Start Time 0931 Stop Time 930 Time Calculation 0 PT Individual Minutes 0 minutes Missed Therapy Minutes Reason Patient refused Pt denied PT this date secondary to feeling sick . Pt educated on benefits of PT. Pt further denied. Morena Mon PT, DPT was notified of pt refusal. PT attempted treatment at 1040 am. Pt further denied per Morena Mon PT, DPT. No further action taken at this time. Infectious Disease progress note SUBJECTIVE History of Present Illness: Cuate Goodman 83 y.o. female with a history of left degenerative hip disease with ongoing left hip pain with reported decreased quality of life due to this condition. The patient was seen by Orthopedics and Dr. Heredia performed surgery 01/10 with a left total hip arthroplasty. Total hip arthroplastic surgery on 01/10 did not have noted complications or infectious issues per chart review. The patient was subsequently discharged after an admission from 01/10-01/18 on the med surg unit without stated ID issue. There was no antibiotics at time of discharge. Pathology from knee replacement surgery showed consistent with degenerative joint disease without mention of infection. Has history of previous right total hip arthroplasty and left total knee arthroplasty noted. Past medical history also includes obesity, degenerative joint disease and history of DVT and PE. Additional history includes right bundle-branch block, diastolic dysfunction, B12 deficiency, impaired fasting glucose with normal preoperative A1c, elevated uric acid level, GERD, urinary incontinence, history of abdominal aortic aneurysm. Patient does have a history of penicillin allergy resulting in hives but no other allergies to antibiotics noted. The patient denies any tobacco, alcohol or drug use. No prior use reported. Patient was subsequently admitted swing bed for rehabilitation on 01/18. Patient underwent pain control, PT/OT and ongoing medical management. Patient was noted to have erythema that began around her left hip site approximately on 01/18 or 01/19 per nursing report. There has been no described drainage from her hip. Patient denies any specific areas pain in her hip joint. There is no reported fevers or chills or night sweats at time of initial consultation. The patient denies any new respiratory, abdominal or urinary symptoms. Specifically she denies any UTI symptoms Infectious disease consult 01/21/2024, patient began on Zyvox for superficial postop infection, Interval events: 24 hour events reviewed. No fever reported. Patient this morning said she had poor appetite yesterday and did not eat dinner but had eaten other meals. Denied any diarrhea. No vomiting reported. No hip pain. Redness is improving. CRP is improved. Patient is having episodes where she is feeling unwell reported. Discussed with nursing. Patient denies any respiratory, urinary or other symptoms. Had 1 bowel movement recorded. No abdominal pain reported. ROS A complete review of systems are negative except those consistent with HPI OBJECTIVE Past Medical History: Diagnosis Date Aortic aneurysm Arthritis Deep vein thrombosis (DVT) GERD (gastroesophageal reflux disease) Past Medical History: Diagnosis Date Aortic aneurysm Arthritis Deep vein thrombosis (DVT) GERD (gastroesophageal reflux disease) Past Surgical History: Procedure Laterality Date ARTHROPLASTY HIP TOTAL Left 01/11/2024 Laterality: Left; Surgeon: Erik Heredia MD; Location: [facility] OR NEPHRECTOMY Right 1978 CHOLECYSTECTOMY HIP REPLACEMENT Right HYSTERECTOMY KNEE REPLACEMENT Bilateral left x 2 LITHOTRIPSY multiple Patient Active Problem List Diagnosis S/P total hip arthroplasty Gout Aneurysm of ascending aorta without rupture Aneurysmal dilatation Closed fracture of hand Fracture of metacarpal bone Gastro-esophageal reflux disease without esophagitis Hypomagnesemia Lumbar spondylosis Mixed stress and urge urinary incontinence Morbid (severe) obesity due to excess calories Other disorders of plasma-protein metabolism, not elsewhere classified Pulmonary embolism Solitary kidney, acquired Thoracic aortic ectasia Unilateral primary osteoarthritis, left hip Unsteadiness on feet S/P total left hip arthroplasty Social History Socioeconomic History Marital status: Single Spouse name: Not on file Number of children: Not on file Years of education: Not on file Highest education level: Not on file Occupational History Not on file Tobacco Use Smoking status: Never Smokeless tobacco: Never Substance and Sexual Activity Alcohol use: Never Drug use: Never Sexual activity: Not on file Other Topics Concern Not on file Social History Narrative Not on file Social Determinants of Health Financial Resource Strain: Low Risk (01/21/2024) Overall Financial Resource Strain (CARDIA) Difficulty of Paying Living Expenses: Not very hard Food Insecurity: No Food Insecurity (01/21/2024) Hunger Vital Sign Worried About Running Out of Food in the Last Year: Never true Ran Out of Food in the Last Year: Never true Transportation Needs: No Transportation Needs (01/21/2024) PRAPARE - Transportation Lack of Transportation (Medical): No Lack of Transportation (Non-Medical): No Physical Activity: Not on file Stress: Not on file Social Connections: Not on file Intimate Partner Violence: Not At Risk (01/21/2024) Humiliation, Afraid, Rape, and Kick questionnaire Fear of Current or Ex-Partner: No Emotionally Abused: No Physically Abused: No Sexually Abused: No Housing Stability: Low Risk (01/21/2024) Housing Stability Vital Sign Unable to Pay for Housing in the Last Year: No Number of Places Lived in the Last Year: 1 Unstable Housing in the Last Year: No Current Facility-Administered Medications: Acetaminophen (TYLENOL) tablet 650 mg, 650 mg, Oral, Q4H PRN, Mohan Gomez MD, 650 mg at 01/21/24 1208 Allopurinol (ZYLOPRIM) tablet 100 mg, 100 mg, Oral, Daily, Mohan Gomez MD, 100 mg at 01/30/24 0855 apixaban (ELIQUIS) tablet 5 mg, 5 mg, Oral, Q12H, Mohan Gomez MD, 5 mg at 01/30/24 0855 bisacodyl (DULCOLAX) suppository 10 mg, 10 mg, Rectal, Daily PRN, Mohan Gomez MD Cyclobenzaprine (FLEXERIL) tablet 5 mg, 5 mg, Oral, Q12H, Mohan Gomez MD, 5 mg at 01/30/24 0855 Docusate (COLACE) capsule 100 mg, 100 mg, Oral, Q12H, Mohan Gomez MD, 100 mg at 01/30/24 0855 ferrous sulfate tablet 325 mg, 325 mg, Oral, Daily, Mohan Gomez MD, 325 mg at 01/30/24 0855 hydroCODone-acetaminophen (NORCO) 5-325 MG per tablet 1 tablet, 1 tablet, Oral, Q4H PRN, Mohan Gomez MD, 1 tablet at 01/30/24 1618 hydroCODone-acetaminophen (NORCO) 5-325 MG per tablet 2 tablet, 2 tablet, Oral, Q4H PRN, Mohan Gomez MD, 2 tablet at 01/29/24 2356 lactulose (CHRONULAC) oral solution 20 g, 20 g, Oral, TID PRN, Mohan Gomez MD Lisinopril (PRINIVIL) tablet 5 mg, 5 mg, Oral, Daily, Mohan Gomez MD, 5 mg at 01/30/24 08 multivitamin tablet 1 tablet, 1 tablet, Oral, Daily, Mohan Gomez MD, 1 tablet at 01/30/24 08 nystatin (NYSTOP;MYCOSTATIN) powder 1 Application, 1 Application, Topical, 4x daily, Mohan Gomez MD, 1 Application at 01/27/242128 Ondansetron (ZOFRAN) tablet 4 mg, 4 mg, Oral, Q4H PRN, Mohan Gomez MD, 4 mg at 01/30/24 08 Pantoprazole (PROTONIX) tablet DR 40 mg, 40 mg, Oral, Daily, Mohan Gomez MD, 40 mg at 01/30/24854 Polyethylene glycol (MIRALAX) packet 17 g, 17 g, Oral, Q12H, Mohan Gomez MD, 17 g at 01/22/242104 Polyethylene glycol (MIRALAX) packet 17 g, 17 g, Oral, TID PRN, Mohan Gomez MD probiotic blend (RISAQUAD) capsule 2 capsule, 2 capsule, Oral, Q12H, Mohan Gomez MD, 2 capsule at 01/30/24 08 senna-docusate (SENOKOT-S) 8.6-50 MG per tablet 2 tablet, 2 tablet, Oral, Q12H, Mohan Gomez MD, 2 tablet at 01/22/24 210 Sulfamethoxazole-trimethoprim (BACTRIM DS) 800-160 MG per tablet 1 tablet, 1 tablet, Oral, Q12H, Janet Moreno MD, 1 tablet at 01/30/24 0855 Tolterodine (DETROL-LA) capsule XL 4 mg, 4 mg, Oral, Daily, Mohan Gomez MD, 4 mg at 01/30/24 0855 Zolpidem (AMBIEN) tablet 5 mg, 5 mg, Oral, QHS PRN, Mohan Gomez MD, 5 mg at 01/29/24 2302 Allergies Allergen Reactions Morphine Nausea and Vomiting Other Reaction(s): GI intolerance Oxycodone Nausea and Vomiting Other Reaction(s): GI intolerance Penicillins Hives Vitals: 01/30/24 0500 01/30/24 0728 01/30/24 0740 01/30/24 1214 BP: 118/68 Pulse: 82 Resp: 20 Temp: 98.1 degrees F (36.7 degrees C) 98.6 degrees F (37 degrees C) TempSrc: Oral Oral SpO2: 93% 92% Weight: 112.5 kg (248 lb 1.6 oz) Height: Intake/Output Summary (Last 24 hours) at 01/30/2024 1657 Last data filed at 01/30/2024 0848 Gross per 24 hour Intake 240 ml Output -- Net 240 ml Physical Exam: CONSTITUTIONAL: Alert and Oriented, in no distress, afebrile HEENT: Normocephalic and atraumatic, Sclera anicteric, PERRL CARDIAC: Normal rate, regular rhythm, normal heart sounds and intact distal pulses, no murmurs/rubs/clicks/gallops RESP: Effort normal and breath sounds are normal, but distant. No respiratory distress. No Wheezing/Rales/Cough, RA GI: Soft. Bowel sounds are normal. Nontender. Nondistended. Morbid obesity : No Suprapubic tenderness EXTREMITES: No cyanosis, clubbing; positive for history of left total knee arthroplasty. History of right total hip arthroplasty. Left total hip arthroplasty with incision with surrounding erythema, overall improved, no pain, no drainage. Left greater than right lower extremity edema DERM: Skin is warm and dry. No rash noted MUSCULARSKELETAL: No arthritis noted NEUROLOGIC: Alert and communicative LAB RESULTS: WBC (WHITE BLOOD COUNT) Date/Time Value Ref Range Status 01/30/2024 04:15 AM 5.3 3.6 - 11.0 10*3/uL Final 01/29/2024 05:38 AM 4.7 3.6 - 11.0 10*3/uL Final 01/28/2024 06:43 AM 5.1 3.6 - 11.0 10*3/uL Final 01/27/2024 04:37 AM 5.4 3.6 - 11.0 10*3/uL Final 01/26/2024 04:33 AM 5.9 3.6 - 11.0 10*3/uL Final 01/25/2024 05:25 AM 5.7 3.6 - 11.0 10*3/uL Final 01/24/2024 04:49 AM 6.2 3.6 - 11.0 10*3/uL Final HEMOGLOBIN (HGB) Date/Time Value Ref Range Status 01/30/2024 04:15 AM 10.3 (L) 12.0 - 16.0 G/DL Final 01/29/2024 05:38 AM 10.0 (L) 12.0 - 16.0 G/DL Final 01/28/2024 06:43 AM 10.6 (L) 12.0 - 16.0 G/DL Final 01/27/2024 04:37 AM 10.3 (L) 12.0 - 16.0 G/DL Final 01/26/2024 04:33 AM 9.8 (L) 12.0 - 16.0 G/DL Final 01/25/2024 05:25 AM 10.1 (L) 12.0 - 16.0 G/DL Final 01/24/2024 04:49 AM 10.1 (L) 12.0 - 16.0 G/DL Final HEMATOCRIT (HCT) Date/Time Value Ref Range Status 01/30/2024 04:15 AM 29.9 (L) 36.0 - 48.0 % Final 01/29/2024 05:38 AM 29.3 (L) 36.0 - 48.0 % Final 01/28/2024 06:43 AM 31.3 (L) 36.0 - 48.0 % Final 01/27/2024 04:37 AM 30.7 (L) 36.0 - 48.0 % Final 01/26/2024 04:33 AM 29.0 (L) 36.0 - 48.0 % Final 01/25/2024 05:25 AM 29.4 (L) 36.0 - 48.0 % Final 01/24/2024 04:49 AM 29.3 (L) 36.0 - 48.0 % Final PLATELET COUNT Date/Time Value Ref Range Status 01/30/2024 04:15 AM 466 (H) 130 - 400 10*3/uL Final 01/29/2024 05:38 AM 438 (H) 130 - 400 10*3/uL Final 01/28/2024 06:43 AM 470 (H) 130 - 400 10*3/uL Final 01/27/2024 04:37 AM 438 (H) 130 - 400 10*3/uL Final 01/26/2024 04:33 AM 440 (H) 130 - 400 10*3/uL Final 01/25/2024 05:25 AM 440 (H) 130 - 400 10*3/uL Final 01/24/2024 04:49 AM 424 (H) 130 - 400 10*3/uL Final POTASSIUM Date/Time Value Ref Range Status 01/30/2024 04:15 AM 4.4 3.5 - 5.1 MMOL/L Final 01/29/2024 05:38 AM 4.2 3.5 - 5.1 MMOL/L Final 01/28/2024 06:43 AM 4.4 3.5 - 5.1 MMOL/L Final 01/27/2024 04:37 AM 4.0 3.5 - 5.1 MMOL/L Final 01/26/2024 04:33 AM 3.9 3.5 - 5.1 MMOL/L Final 01/25/2024 05:25 AM 3.8 3.5 - 5.1 MMOL/L Final 01/24/2024 04:49 AM 3.5 3.5 - 5.1 MMOL/L Final CHLORIDE Date/Time Value Ref Range Status 01/30/2024 04:15 AM 101 98 - 107 MMOL/L Final Comment: Please note: Triglyceride levels of 600mg/dL or higher may positively bias chloride results by approximately 2.1 mmol 01/29/2024 05:38 AM 101 98 - 107 MMOL/L Final Comment: Please note: Triglyceride levels of 600mg/dL or higher may positively bias chloride results by approximately 2.1 mmol 01/28/2024 06:43 AM 100 98 - 107 MMOL/L Final Comment: Please note: Triglyceride levels of 600mg/dL or higher may positively bias chloride results by approximately 2.1 mmol 01/27/2024 04:37 AM 102 98 - 107 MMOL/L Final Comment: Please note: Triglyceride levels of 600mg/dL or higher may positively bias chloride results by approximately 2.1 mmol 01/26/2024 04:33 AM 102 98 - 107 MMOL/L Final Comment: Please note: Triglyceride levels of 600mg/dL or higher may positively bias chloride results by approximately 2.1 mmol 01/25/2024 05:25 AM 101 98 - 107 MMOL/L Final Comment: Please note: Triglyceride levels of 600mg/dL or higher may positively bias chloride results by approximately 2.1 mmol 01/24/2024 04:49 AM 102 98 - 107 MMOL/L Final Comment: Please note: Triglyceride levels of 600mg/dL or higher may positively bias chloride results by approximately 2.1 mmol CARBON DIOXIDE (CO2) Date/Time Value Ref Range Status 01/30/2024 04:15 AM 31 (H) 22 - 30 MMOL/L Final 01/29/2024 05:38 AM 30 22 - 30 MMOL/L Final 01/28/2024 06:43 AM 33 (H) 22 - 30 MMOL/L Final 01/27/2024 04:37 AM 30 22 - 30 MMOL/L Final 01/26/2024 04:33 AM 31 (H) 22 - 30 MMOL/L Final 01/25/2024 05:25 AM 32 (H) 22 - 30 MMOL/L Final 01/24/2024 04:49 AM 31 (H) 22 - 30 MMOL/L Final Glucose Date/Time Value Ref Range Status 01/30/2024 04:15 AM 93 70 - 100 MG/DL Final Comment: NORMAL <100 mg/dL PREDIABETES 101-126 mg/dL DIABETES 126 mg/dL or higher 01/29/2024 05:38 AM 94 70 - 100 MG/DL Final Comment: NORMAL <100 mg/dL PREDIABETES 101-126 mg/dL DIABETES 126 mg/dL or higher 01/28/2024 06:43 AM 86 70 - 100 MG/DL Final Comment: NORMAL <100 mg/dL PREDIABETES 101-126 mg/dL DIABETES 126 mg/dL or higher 01/27/2024 04:37 AM 98 70 - 100 MG/DL Final Comment: NORMAL <100 mg/dL PREDIABETES 101-126 mg/dL DIABETES 126 mg/dL or higher 01/26/2024 04:33 AM 109 (H) 70 - 100 MG/DL Final Comment: NORMAL <100 mg/dL PREDIABETES 101-126 mg/dL DIABETES 126 mg/dL or higher 01/25/2024 05:25 AM 92 70 - 100 MG/DL Final Comment: NORMAL <100 mg/dL PREDIABETES 101-126 mg/dL DIABETES 126 mg/dL or higher 01/24/2024 04:49 AM 104 (H) 70 - 100 MG/DL Final Comment: NORMAL <100 mg/dL PREDIABETES 101-126 mg/dL DIABETES 126 mg/dL or higher BUN Date/Time Value Ref Range Status 01/30/2024 04:15 AM 10 7 - 20 MG/DL Final 01/29/2024 05:38 AM 9 7 - 20 MG/DL Final 01/28/2024 06:43 AM 11 7 - 20 MG/DL Final 01/27/2024 04:37 AM 11 7 - 20 MG/DL Final 01/26/2024 04:33 AM 12 7 - 20 MG/DL Final 01/25/2024 05:25 AM 6 (L) 7 - 20 MG/DL Final 01/24/2024 04:49 AM 8 7 - 20 MG/DL Final CREATININE SERUM Date/Time Value Ref Range Status 01/30/2024 04:15 AM 1.00 0.7 - 1.2 MG/DL Final 01/29/2024 05:38 AM 0.80 0.7 - 1.2 MG/DL Final 01/28/2024 06:43 AM 0.80 0.7 - 1.2 MG/DL Final 01/27/2024 04:37 AM 0.70 0.7 - 1.2 MG/DL Final 01/26/2024 04:33 AM 0.70 0.7 - 1.2 MG/DL Final 01/25/2024 05:25 AM 0.70 0.7 - 1.2 MG/DL Final 01/24/2024 04:49 AM 0.70 0.7 - 1.2 MG/DL Final Albumin Date/Time Value Ref Range Status 01/23/2024 04:37 AM 2.6 (L) 3.5 - 5.0 G/DL Final 01/17/2024 04:31 AM 2.6 (L) 3.5 - 5.0 G/dl Final 12/16/2023 12:35 PM 4.0 3.5 - 5.0 G/dl Final CALCIUM Date/Time Value Ref Range Status 01/30/2024 04:15 AM 8.6 8.4 - 10.2 MG/DL Final 01/29/2024 05:38 AM 8.3 (L) 8.4 - 10.2 MG/DL Final 01/28/2024 06:43 AM 8.8 8.4 - 10.2 MG/DL Final 01/27/2024 04:37 AM 8.6 8.4 - 10.2 MG/DL Final 01/26/2024 04:33 AM 8.2 (L) 8.4 - 10.2 MG/DL Final 01/25/2024 05:25 AM 8.3 (L) 8.4 - 10.2 MG/DL Final 01/24/2024 04:49 AM 8.5 8.4 - 10.2 MG/DL Final ALKALINE PHOSPHATASE Date/Time Value Ref Range Status 01/23/2024 04:37 AM 99 38 - 126 IU/L Final 12/16/2023 12:35 PM 89 38 - 126 IU/L Final AST Date/Time Value Ref Range Status 01/23/2024 04:37 AM 25 14 - 36 IU/L Final 12/16/2023 12:35 PM 25 14 - 36 IU/L Final BILIRUBIN, TOTAL Date/Time Value Ref Range Status 01/23/2024 04:37 AM 0.3 0.2 - 1.3 MG/DL Final 12/16/2023 12:35 PM 0.3 0.2 - 1.3 MG/DL Final ANION GAP Date/Time Value Ref Range Status 01/30/2024 04:15 AM 3 (L) 8 - 16 MMOL/L Final 01/29/2024 05:38 AM 3 (L) 8 - 16 MMOL/L Final 01/28/2024 06:43 AM 3 (L) 8 - 16 MMOL/L Final 01/27/2024 04:37 AM 3 (L) 8 - 16 MMOL/L Final 01/26/2024 04:33 AM 1 (L) 8 - 16 MMOL/L Final 01/25/2024 05:25 AM 3 (L) 8 - 16 MMOL/L Final 01/24/2024 04:49 AM 2 (L) 8 - 16 MMOL/L Final ALT Date/Time Value Ref Range Status 01/23/2024 04:37 AM 10 <35 IU/L Final 12/16/2023 12:35 PM 16 <35 IU/L Final ESTIMATED GFR, NON AMER Date/Time Value Ref Range Status 01/30/2024 04:15 AM 57 ml/min/1.73sq.m Final 01/29/2024 05:38 AM 73 ml/min/1.73sq.m Final 01/28/2024 06:43 AM 73 ml/min/1.73sq.m Final 01/27/2024 04:37 AM 85 ml/min/1.73sq.m Final 01/26/2024 04:33 AM 85 ml/min/1.73sq.m Final 01/25/2024 05:25 AM 85 ml/min/1.73sq.m Final 01/24/2024 04:49 AM 85 ml/min/1.73sq.m Final ESTIMATED GFR, Date/Time Value Ref Range Status 01/30/2024 04:15 AM 68 ml/min/1.73sq.m Final 01/29/2024 05:38 AM 89 ml/min/1.73sq.m Final 01/28/2024 06:43 AM 89 ml/min/1.73sq.m Final 01/27/2024 04:37 AM 103 ml/min/1.73sq.m Final 01/26/2024 04:33 AM 103 ml/min/1.73sq.m Final 01/25/2024 05:25 AM 103 ml/min/1.73sq.m Final 01/24/2024 04:49 AM 103 ml/min/1.73sq.m Final GFR COMMENT Date/Time Value Ref Range Status 01/30/2024 04:15 AM Average GFR for 70+ years old = 75. Final Comment: Chronic Kidney disease, GFR = <60. Kidney failure, GFR = <15. The GFR estimate is not adjusted for extreme body surface area or acute process, nor has it been validated for women or ethnic groups other than and . CBC Lab Results Component Value Date WBC 5.3 01/30/2024 HGB 10.3 (L) 01/30/2024 HCT 29.9 (L) 01/30/2024 PLATELET 466 (H) 01/30/2024 MCV 95.6 01/30/2024 EDIF Lab Results Component Value Date RBCDISTRIBU 15.0 (H) 01/30/2024 EOSINOPHILS 3.0 01/30/2024 EOSINOPHILS 0.2 01/30/2024 BASOPHILS 1.2 01/30/2024 BASOPHILS 0.1 01/30/2024 LYMPHOCYTABS 1.4 01/30/2024 PLATELET 466 (H) 01/30/2024 MPV 6.3 (L) 01/30/2024 Lab Results Component Value Date SODIUM 135 (L) 01/30/2024 POTASSIUM 4.4 01/30/2024 CHLORIDE 101 01/30/2024 CO2 31 (H) 01/30/2024 BUN 10 01/30/2024 CREATSERUM 1.00 01/30/2024 GLUCOSE 93 01/30/2024 Micro C [facility] 02-02-2024 History of Presen t illness Narrative Ortho Nurse - Established Patient Intake Room#: Cast room Patient is an 83 year old female who arrives in a wheel chair for her 3 week follow up after LHTA-AL on 01/11/24. She states she is not in any pain today and states her pain is controlled well. She is using [place] codone acetaminophen for pain relief as well as Tylenol prn. Her leg is wrapped instead of JOSAFAT hose and she is using Eliquis for DVT preventation. She is following touch down weight bearing protocol. Date: 02/02/2024 11:34 AM Patient: Cuate Goodman MR#: [id number] : 1940 Age: 83 y.o. Referring Physician: Paige Damon Insurance: Payor: MEDICARE [employer] HMO [place] PPO / Plan: MEDICARE [employer] PPO / Product Type: *No Product type* / No chief complaint on file. There were no vitals taken for this visit. Pain Recent Labs Lab Results Component Value Date CRP 26.3 (H) 02/02/2024 Lab Results Component Value Date SEDRATE 71 (H) 01/22/2024 Lab Results Component Value Date WBC 6.0 02/02/2024 HGB 10.5 (L) 02/02/2024 HCT 31.1 (L) 02/02/2024 PLATELET 429 (H) 02/02/2024 MCV 95.9 02/02/2024 History Past Medical History: Diagnosis Date Aortic aneurysm Arthritis Deep vein thrombosis (DVT) GERD (gastroesophageal reflux disease) Past Surgical History: Procedure Laterality Date ARTHROPLASTY HIP TOTAL Left 01/11/2024 Laterality: Left; Surgeon: Erik Heredia MD; Location: [facility] OR NEPHRECTOMY Right 1978 CHOLECYSTECTOMY HIP REPLACEMENT Right HYSTERECTOMY KNEE REPLACEMENT Bilateral left x 2 LITHOTRIPSY multiple Family History: Her family history is not on file. Social History: Her reports that she has never smoked. She has never used smokeless tobacco. She reports that she does not drink alcohol and does not use drugs. Outpatient Medications Prior to Visit Medication Sig Dispense Refill Acetaminophen 325 MG tablet Take 2 tablets by mouth every 4 hours as needed for Mild Pain. 50 tablet 1 Allopurinol 100 MG tablet Take 1 tablet by mouth daily. Cholecalciferol (Vitamin D-3) 25 MCG (1000 UT) capsule Take by mouth. cyanocobalamin 1000 MCG tablet Take 5 tablets by mouth. Docusate 100 MG capsule Take 1 capsule by mouth 2 times daily. 60 capsule 0 Eliquis 5 MG tablet Take 1 tablet by mouth every 12 hours. hydroCODone-acetaminophen 5-325 MG tablet Take 1-2 tablets by mouth every 6 hours as needed for up to 7 days. Do not take over 4000mg acetaminophen daily. 30 tablet 0 magnesium oxide 400 (240 Mg) MG Take 1 tablet by mouth 2 times daily. Multiple Vitamin (multivitamin) tablet Take 1 tablet by mouth daily. omeprazole [address] capsule 1 capsule daily. qam tolterodine 4 MG Cap SR 24HR Take 1 capsule by mouth daily. Facility-Administered Medications Prior to Visit Medication Dose Route Frequency Provider Last Rate Last Admin Acetaminophen (TYLENOL) tablet 650 mg 650 mg Oral Q4H PRN Mohan Gomez MD 650 mg at 02/02/24 0935 Allopurinol (ZYLOPRIM) tablet 100 mg 100 mg Oral Daily Mohan Gomez MD 100 mg at 02/02/24 0836 apixaban (ELIQUIS) tablet 5 mg 5 mg Oral Q12H Mohan Gomez MD 5 mg at 02/02/24 0836 bisacodyl (DULCOLAX) suppository 10 mg 10 mg Rectal Daily PRN Mohan Gomez MD Cyclobenzaprine (FLEXERIL) tablet 5 mg 5 mg Oral Q12H Mohan Gomez MD 5 mg at 02/02/24 0836 Docusate (COLACE) capsule 100 mg 100 mg Oral Q12H Mohan Gomez MD 100 mg at 02/02/24 0836 ferrous sulfate tablet 325 mg 325 mg Oral Daily Mohan Gomez MD 325 mg at 02/02/24 0836 hydroCODone-acetaminophen (NORCO) 5-325 MG per tablet 1 tablet 1 tablet Oral Q4H PRN Mohan Gomez MD 1 tablet at 02/01/24 1016 hydroCODone-acetaminophen (NORCO) 5-325 MG per tablet 2 tablet 2 tablet Oral Q4H PRN Mohan Gomez MD 2 tablet at 02/01/24 2306 lactulose (CHRONULAC) oral solution 20 g 20 g Oral TID PRN Mohan Gomez MD Lisinopril (PRINIVIL) tablet 5 mg 5 mg Oral Daily Mohan Gomez MD 5 mg at 02/02/24 0835 multivitamin tablet 1 tablet 1 tablet Oral Daily Mohan Gomez MD 1 tablet at 02/02/24 0835 Nystatin (MYCOSTATIN) oral suspension 500,000 Units 500,000 Units Swish & Swallow 4x daily Janet Moreno MD 500,000 Units at 02/02/24 0835 Ondansetron (ZOFRAN) tablet 4 mg 4 mg Oral Q4H PRN Mohan Gomez MD 4 mg at 02/02/24 0840 Pantoprazole (PROTONIX) tablet DR 40 mg 40 mg Oral Daily Mohan Gomez MD 40 mg at 02/02/24 0836 Polyethylene glycol (MIRALAX) packet 17 g 17 g Oral Q12H Mohan Gomez MD 17 g at 01/30/24 2044 Polyethylene glycol (MIRALAX) packet 17 g 17 g Oral TID PRN Mohan Gomez MD senna-docusate (SENOKOT-S) 8.6-50 MG per tablet 2 tablet 2 tablet Oral Q12H Mohan Gomez MD 2 tablet at 01/30/242043 Tolterodine (DETROL-LA) capsule XL 4 mg 4 mg Oral Daily Mohan Gomez MD 4 mg at 02/02/24 0835 Zolpidem (AMBIEN) tablet 5 mg 5 mg Oral QHS PRN Mohan Gomez MD 5 mg at 02/01/24 2306 Current Outpatient Medications: Acetaminophen 325 MG tablet, Take 2 tablets by mouth every 4 hours as needed for Mild Pain., Disp: 50 tablet, Rfl: 1 Allopurinol 100 MG tablet, Take 1 tablet by mouth daily., Disp: , Rfl: Cholecalciferol (Vitamin D-3) 25 MCG (1000 UT) capsule, Take by mouth., Disp: , Rfl: cyanocobalamin 1000 MCG tablet, Take 5 tablets by mouth., Disp: , Rfl: Docusate 100 MG capsule, Take 1 capsule by mouth 2 times daily., Disp: 60 capsule, Rfl: 0 Eliquis 5 MG tablet, Take 1 tablet by mouth every 12 hours., Disp: , Rfl: hydroCODone-acetaminophen 5-325 MG tablet, Take 1-2 tablets by mouth every 6 hours as needed for up to 7 days. Do not take over 4000mg acetaminophen daily., Disp: 30 tablet, Rfl: 0 magnesium oxide 400 (240 Mg) MG, Take 1 tablet by mouth 2 times daily., Disp: , Rfl: Multiple Vitamin (multivitamin) tablet, Take 1 tablet by mouth daily., Disp: , Rfl: omeprazole [address] capsule, 1 capsule daily. qam, Disp: , Rfl: tolterodine 4 MG Cap SR 24HR, Take 1 capsule by mouth daily., Disp: , Rfl: No current facility-administered medications for this visit. Facility-Administered Medications Ordered in Other Visits: [[facility]P Hold - Suspended Admission] Acetaminophen (TYLENOL) tablet 650 mg, 650 mg, Oral, Q4H PRN, Mohan Gomez MD, 650 mg at 02/02/24 0935 [[facility] Hold - Suspended Admission] Allopurinol (ZYLOPRIM) tablet 100 mg, 100 mg, Oral, Daily, Mohan Gomez MD, 100 mg at 02/02/24 0836 [[facility] Hold - Suspended Admission] apixaban (ELIQUIS) tablet 5 mg, 5 mg, Oral, Q12H, Mohan Gomez MD, 5 mg at 02/02/24 0836 [[facility] - Suspended Admission] bisacodyl (DULCOLAX) suppository 10 mg, 10 mg, Rectal, Daily PRN, Mohan Gomez MD [[facility] - Suspended Admission] Cyclobenzaprine (FLEXERIL) tablet 5 mg, 5 mg, Oral, Q12H, Mhoan Gomez MD, 5 mg at 02/02/24 0836 [[facility] - Suspended Admission] Docusate (COLACE) capsule 100 mg, 100 mg, Oral, Q12H, Mohan Gomez MD, 100 mg at 02/02/24 0836 [[facility] Hold - Suspended Admission] ferrous sulfate tablet 325 mg, 325 mg, Oral, Daily, Mohan Gomez MD, 325 mg at 02/02/24 0836 [[facility] - Suspended Admission] hydroCODone-acetaminophen (NORCO) 5-325 MG per tablet 1 tablet, 1 tablet, Oral, Q4H PRN, Mohan Gomez MD, 1 tablet at 02/01/24 1016 [Sep - Suspended Admission] hydroCODone-acetaminophen (NORCO) 5-325 MG per tablet 2 tablet, 2 tablet, Oral, Q4H PRN, Mohan Gomez MD, 2 tablet at 02/01/24 2306 [[facility] - Suspended Admission] lactulose (CHRONULAC) oral solution 20 g, 20 g, Oral, TID PRN, Mohan Gomez MD [[facility] - Suspended Admission] Lisinopril (PRINIVIL) tablet 5 mg, 5 mg, Oral, Daily, Mohan Gomez MD, 5 mg at 02/02/24 0835 [[facility] - Suspended Admission] multivitamin tablet 1 tablet, 1 tablet, Oral, Daily, Mohan Gomez MD, 1 tablet at 02/02/24 0835 [[facility] Hold - Suspended Admission] Nystatin (MYCOSTATIN) oral suspension 500,000 Units, 500,000 Units, Swish & Swallow, 4x daily, Janet Moreno MD, 500,000 Units at 02/02/24 0835 [[facility] - Suspended Admission] Ondansetron (ZOFRAN) tablet 4 mg, 4 mg, Oral, Q4H PRN, Mohan Gomez MD, 4 mg at 02/02/24 0840 [[facility] Hold - Suspended Admission] Pantoprazole (PROTONIX) tablet DR 40 mg, 40 mg, Oral, Daily, Mohan Gomez MD, 40 mg at 02/02/24 0836 [[facility] Hold - Suspended Admission] Polyethylene glycol (MIRALAX) packet 17 g, 17 g, Oral, Q12H, Mohan Gomez MD, 17 g at 01/30/242043 [[facility] Hold - Suspended Admission] Polyethylene glycol (MIRALAX) packet 17 g, 17 g, Oral, TID PRN, Mohan Gomez MD [[facility] Hold - Suspended Admission] senna-docusate (SENOKOT-S) 8.6-50 MG per tablet 2 tablet, 2 tablet, Oral, Q12H, Mohan Gomez MD, 2 tablet at 01/30/242043 [[facility] Hold - Suspended Admission] Tolterodine (DETROL-LA) capsule XL 4 mg, 4 mg, Oral, Daily, Mohan Gomez MD, 4 mg at 02/02/2435 [[facility] Hold - Suspended Admission] Zolpidem (AMBIEN) tablet 5 mg, 5 mg, Oral, QHS PRN, Mohan Gomez MD, 5 mg at 02/01/246 Allergies: She is allergic to morphine, oxycodone, and penicillins. Images from the original note were not included. Cuate Goodman is 3 weeks s/p left Anterolateral total hip arthroplasty with introp cable and plate fixation to troch fracture. She feels she is progressing better in her recovery. She is TDWB with global restrictions. She reports 0 out of 10 pain today. She is using Tylenol and Matador for pain control and Eliquis for DVT prophylaxis along with JOSAFAT hose. She reports she is anxious to get home. Of note, Dr. Moreno was consulted upon arrival to [facility] due to concerns for SSI with incisional redness and itching. Patient reports this is improving, no longer itching. Physical Exam: Today on there is global hip swelling, the incision is with slight erythema to the edges, does not extend to surrounding skin. There is no active drainage or dehiscence however there is region central with some sloughy appearing tissue. Slight serous drainage with dabbing. Scaly/peeling skin to border. Calves are soft and nontender with negative Homans sign. ROM is full and supple with no pain or impingement however far limits not accessed given post op nature. Distal neurovascular exam is intact. Upon standing to investigate wound, patient is noted with bruising/questionable breakdown to posterior thigh bilaterally. Per operative note there was concern for this prior to OR. Visit Vitals Temp 98.8 F (37.1 C) (Temporal) Ht 1.626 m (5' 4 ) Wt 109.3 kg (241 lb) BMI 41.37 kg/m Diagnostic study/interpretation: Plain films were obtained today and reveal a cemented total hip arthroplasty in good position and alignment without evidence of implant loosening or migration as compared to the immediate postop film. Cable and plate in good position with no migration compared to post op films. The fracture is difficult to assess within the metal but there are no signs of displacement, nonunion, or further fracture. Assessment/Plan: 3 week postop ANGELIQUE via anterolateral approach. -Continue DVT prophylaxis as prescribed. -Dental prophylaxis was prescribed and instructions given. Pt was encouraged to delay any routine cleaning etc for minimum of three months post-op but was encouraged to manage any broken tooth, infection immediately. -We discussed return to driving and safety in doing so. Patient did not drive pre-op and does not plan to post. -Patient is made aware discharge from [facility] will be left up to the team there. She knows to discuss this with them. I do think a SNF may be appropriate rather than straight home at this point. Pt is understanding and agreeable with this recommendation. -We will remain at TDWB for an additional 3 weeks. Global precautions also to continue. Okay to discontinue use of abductor pillow. -I am concerned for the appearance of the posterior thighs. Educated patient that she needs to be offloading pressure to this region more while working to maintain global precautions. She demonstrated understanding. -Encouraged to also keep pressure off wound. Continue to follow Dr. Moreno recommendations however I would recommend discontinuing any creams as I do not want the incision to be kept moist. Would instead paint with betadine daily. I did this today and will communicate this recommendation to Dr. Moreno. -Discussed expected progression of activities and weightbearing from here. Patient understands PT will be option for her in future if she desires. -We will otherwise plan for follow up at 6 weeks post op for radiological and clinical/wound evaluation unless an earlier need should arise. All pertinant portions of the clinical technical sales support manager documentation was reviewed. Paige Damon I have reviewed the findings of the clinical technical sales support manager and agree with their assessment. 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 She states she is not in any pain today and states her pain is controlled well. She is using [place] codone acetaminophen for pain relief as well as Tylenol prn. Her leg is wrapped instead of JOSAFAT hose and she is using Eliquis for DVT preventation. She is following touch down weight bearing protocol. Date: 02/02/2024 11:34 AM Patient: Cuate Goodman MR#: [id number] : 1940 Age: 83 y.o. Referring Physician: Paieg Damon Insurance: Payor: MEDICARE [employer] HMO [place] PPO / Plan: [employer]ICARE [employer] PPO / Product Type: *No Product type* / No chief complaint on file. There were no vitals taken for this visit. Pain Recent Labs Lab Results Component Value Date CRP 26.3 (H) 02/02/2024 Lab Results Component Value Date SEDRATE 71 (H) 01/22/2024 Lab Results Component Value Date WBC 6.0 02/02/2024 HGB 10.5 (L) 02/02/2024 HCT 31.1 (L) 02/02/2024 PLATELET 429 (H) 02/02/2024 MCV 95.9 02/02/2024 History Past Medical History: Diagnosis Date Aortic aneurysm Arthritis Deep vein thrombosis (DVT) GERD (gastroesophageal reflux disease) Past Surgical History: Procedure Laterality Date ARTHROPLASTY HIP TOTAL Left 01/11/2024 Laterality: Left; Surgeon: Erik Heredia MD; Location: [facility] OR NEPHRECTOMY Right 1978 CHOLECYSTECTOMY HIP REPLACEMENT Right HYSTERECTOMY KNEE REPLACEMENT Bilateral left x 2 LITHOTRIPSY multiple Family History: Her family history is not on file. Social History: Her reports that she has never smoked. She has never used smokeless tobacco. She reports that she does not drink alcohol and does not use drugs. Outpatient Medications Prior to Visit Medication Sig Dispense Refill Acetaminophen 325 MG tablet Take 2 tablets by mouth every 4 hours as needed for Mild Pain. 50 tablet 1 Allopurinol 100 MG tablet Take 1 tablet by mouth daily. Cholecalciferol (Vitamin D-3) 25 MCG (1000 UT) capsule Take by mouth. cyanocobalamin 1000 MCG tablet Take 5 tablets by mouth. Docusate 100 MG capsule Take 1 capsule by mouth 2 times daily. 60 capsule 0 Eliquis 5 MG tablet Take 1 tablet by mouth every 12 hours. hydroCODone-acetaminophen 5-325 MG tablet Take 1-2 tablets by mouth every 6 hours as needed for up to 7 days. Do not take over 4000mg acetaminophen daily. 30 tablet 0 magnesium oxide 400 (240 Mg) MG Take 1 tablet by mouth 2 times daily. Multiple Vitamin (multivitamin) tablet Take 1 tablet by mouth daily. omeprazole [address] capsule 1 capsule daily. qam tolterodine 4 MG Cap SR 24HR Take 1 capsule by mouth daily. Facility-Administered Medications Prior to Visit Medication Dose Route Frequency Provider Last Rate Last Admin Acetaminophen (TYLENOL) tablet 650 mg 650 mg Oral Q4H PRN Mohan Gomez MD 650 mg at 02/02/24 0935 Allopurinol (ZYLOPRIM) tablet 100 mg 100 mg Oral Daily Mohan Gomez MD 100 mg at 02/02/24 0836 apixaban (ELIQUIS) tablet 5 mg 5 mg Oral Q12H Mohan Gomez MD 5 mg at 02/02/24 0836 bisacodyl (DULCOLAX) suppository 10 mg 10 mg Rectal Daily PRN Mohan Gomez MD Cyclobenzaprine (FLEXERIL) tablet 5 mg 5 mg Oral Q12H Mohan Gomez MD 5 mg at 02/02/24 0836 Docusate (COLACE) capsule 100 mg 100 mg Oral Q12H Mohan Gomez MD 100 mg at 02/02/24 0836 ferrous sulfate tablet 325 mg 325 mg Oral Daily Mohan Gomez MD 325 mg at 02/02/24 0836 hydroCODone-acetaminophen (NORCO) 5-325 MG per tablet 1 tablet 1 tablet Oral Q4H PRN Mohan Gomez MD 1 tablet at 02/01/24 1016 hydroCODone-acetaminophen (NORCO) 5-325 MG per tablet 2 tablet 2 tablet Oral Q4H PRN Mohan Gomez MD 2 tablet at 02/01/24 230 lactulose (CHRONULAC) oral solution 20 g 20 g Oral TID PRN Mohan Gomez MD Lisinopril (PRINIVIL) tablet 5 mg 5 mg Oral Daily Mohan Gomez MD 5 mg at 02/02/24 0835 multivitamin tablet 1 tablet 1 tablet Oral Daily Mohan Gomez MD 1 tablet at 02/02/24 0835 Nystatin (MYCOSTATIN) oral suspension 500,000 Units 500,000 Units Swish & Swallow 4x daily Janet Moreno MD 500,000 Units at 02/02/24 0835 Ondansetron (ZOFRAN) tablet 4 mg 4 mg Oral Q4H PRN Mohan Gomez MD 4 mg at 02/02/24 0840 Pantoprazole (PROTONIX) tablet DR 40 mg 40 mg Oral Daily Mohan Gomez MD 40 mg at 02/02/24 0836 Polyethylene glycol (MIRALAX) packet 17 g 17 g Oral Q12H Mohan Gomez MD 17 g at 01/30/242043 Polyethylene glycol (MIRALAX) packet 17 g 17 g Oral TID PRN Mohan Gomez MD senna-docusate (SENOKOT-S) 8.6-50 MG per tablet 2 tablet 2 tablet Oral Q12H Mohan Gomez MD 2 tablet at 01/30/242043 Tolterodine (DETROL-LA) capsule XL 4 mg 4 mg Oral Daily Mohan Gomez MD 4 mg at 02/02/2435 Zolpidem (AMBIEN) tablet 5 mg 5 mg Oral QHS PRN Mohan Gomez MD 5 mg at 02/01/24 230 Current Outpatient Medications: Acetaminophen 325 MG tablet, Take 2 tablets by mouth every 4 hours as needed for Mild Pain., Disp: 50 tablet, Rfl: 1 Allopurinol 100 MG tablet, Take 1 tablet by mouth daily., Disp: , Rfl: Cholecalciferol (Vitamin D-3) 25 MCG (1000 UT) capsule, Take by mouth., Disp: , Rfl: cyanocobalamin 1000 MCG tablet, Take 5 tablets by mouth., Disp: , Rfl: Docusate 100 MG capsule, Take 1 capsule by mouth 2 times daily., Disp: 60 capsule, Rfl: 0 Eliquis 5 MG tablet, Take 1 tablet by mouth every 12 hours., Disp: , Rfl: hydroCODone-acetaminophen 5-325 MG tablet, Take 1-2 tablets by mouth every 6 hours as needed for up to 7 days. Do not take over 4000mg acetaminophen daily., Disp: 30 tablet, Rfl: 0 magnesium oxide 400 (240 Mg) MG, Take 1 tablet by mouth 2 times daily., Disp: , Rfl: Multiple Vitamin (multivitamin) tablet, Take 1 tablet by mouth daily., Disp: , Rfl: omeprazole [address] capsule, 1 capsule daily. qam, Disp: , Rfl: tolterodine 4 MG Cap SR 24HR, Take 1 capsule by mouth daily., Disp: , Rfl: No current facility-administered medications for this visit. Facility-Administered Medications Ordered in Other Visits: [Sep - Suspended Admission] Acetaminophen (TYLENOL) tablet 650 mg, 650 mg, Oral, Q4H PRN, Mohan Gomez MD, 650 mg at 02/02/24934 [Sep - Suspended Admission] Allopurinol (ZYLOPRIM) tablet 100 mg, 100 mg, Oral, Daily, Mohan Gomez MD, 100 mg at 02/02/24835 [Sep - Suspended Admission] apixaban (ELIQUIS) tablet 5 mg, 5 mg, Oral, Q12H, Mohan Gomez MD, 5 mg at 02/02/24835 [Sep - Suspended Admission] bisacodyl (DULCOLAX) suppository 10 mg, 10 mg, Rectal, Daily PRN, Mohan Gomez MD [Sep - Suspended Admission] Cyclobenzaprine (FLEXERIL) tablet 5 mg, 5 mg, Oral, Q12H, Mohan Gomez MD, 5 mg at 02/02/24835 [Sep - Suspended Admission] Docusate (COLACE) capsule 100 mg, 100 mg, Oral, Q12H, Mohan Gomez MD, 100 mg at 02/02/24835 [Sep - Suspended Admission] ferrous sulfate tablet 325 mg, 325 mg, Oral, Daily, Mohan Gomez MD, 325 mg at 02/02/24835 [[facility] Hold - Suspended Admission] hydroCODone-acetaminophen (NORCO) 5-325 MG per tablet 1 tablet, 1 tablet, Oral, Q4H PRN, Mohan Gomez MD, 1 tablet at 02/01/24 1016 [[facility] Hold - Suspended Admission] hydroCODone-acetaminophen (NORCO) 5-325 MG per tablet 2 tablet, 2 tablet, Oral, Q4H PRN, Mohan Gomez MD, 2 tablet at 02/01/24 2306 [[facility] Hold - Suspended Admission] lactulose (CHRONULAC) oral solution 20 g, 20 g, Oral, TID PRN, Mohan Gomez MD [[facility] Hold - Suspended Admission] Lisinopril (PRINIVIL) tablet 5 mg, 5 mg, Oral, Daily, Mohan Gomez MD, 5 mg at 02/02/24 0835 [[facility] Hold - Suspended Admission] multivitamin tablet 1 tablet, 1 tablet, Oral, Daily, Mohan Gomez MD, 1 tablet at 02/02/24 0835 [[facility] Hold - Suspended Admission] Nystatin (MYCOSTATIN) oral suspension 500,000 Units, 500,000 Units, Swish & Swallow, 4x daily, Janet Moreno MD, 500,000 Units at 02/02/24 0835 [[facility] Hold - Suspended Admission] Ondansetron (ZOFRAN) tablet 4 mg, 4 mg, Oral, Q4H PRN, Mohan Gomez MD, 4 mg at 02/02/24 0840 [[facility] Hold - Suspended Admission] Pantoprazole (PROTONIX) tablet DR 40 mg, 40 mg, Oral, Daily, Mohan Gomez MD, 40 mg at 02/02/24 0836 [[facility] Hold - Suspended Admission] Polyethylene glycol (MIRALAX) packet 17 g, 17 g, Oral, Q12H, Mohan Gomez MD, 17 g at 01/30/242043 [[facility] Hold - Suspended Admission] Polyethylene glycol (MIRALAX) packet 17 g, 17 g, Oral, TID PRN, Mohan Gomez MD [[facility] Hold - Suspended Admission] senna-docusate (SENOKOT-S) 8.6-50 MG per tablet 2 tablet, 2 tablet, Oral, Q12H, Mohan Gomez MD, 2 tablet at 01/30/242043 [[facility] Hold - Suspended Admission] Tolterodine (DETROL-LA) capsule XL 4 mg, 4 mg, Oral, Daily, Mohan Gomez MD, 4 mg at 02/02/24 0835 [[facility] Hold - Suspended Admission] Zolpidem (AMBIEN) tablet 5 mg, 5 mg, Oral, QHS PRN, Mohan Gomez MD, 5 mg at 02/01/24 2306 Allergies: She is allergic to morphine, oxycodone, and penicillins. documented in this encounter [facility] 01-21-2024 Consult note Associated Order (s): IP CONSULT TO INFECTIOUS DISEASE Infectious Disease Consultation Note Consultation Requested by: Dr Gomez Reason for Consult: Erythema at left post hip arthroplastic surgery sites for evaluation of concern for postoperative infection SUBJECTIVE History of Present Illness: Cuate Goodman 83 y.o. female with a history of left degenerative hip disease with ongoing left hip pain with reported decreased quality of life due to this condition. The patient was seen by Orthopedics and Dr. Heredia performed surgery 01/10 with a left total hip arthroplasty. Total hip arthroplastic surgery on 01/10 did not have noted complications or infectious issues per chart review. The patient was subsequently discharged after an admission from 01/10-01/18 on the med surg unit without stated ID issue. There was no antibiotics at time of discharge. Pathology from knee replacement surgery showed consistent with degenerative joint disease without mention of infection. Has history of previous right total hip arthroplasty and left total knee arthroplasty noted. Past medical history also includes obesity, degenerative joint disease and history of DVT and PE. Additional history includes right bundle-branch block, diastolic dysfunction, B12 deficiency, impaired fasting glucose with normal preoperative A1c, elevated uric acid level, GERD, urinary incontinence, history of abdominal aortic aneurysm. Patient does have a history of penicillin allergy resulting in hives but no other allergies to antibiotics noted. The patient denies any tobacco, alcohol or drug use. No prior use reported. Patient was subsequently admitted swing bed for rehabilitation on 01/18. Patient underwent pain control, PT/OT and ongoing medical management. Patient was noted to have erythema that began around her left hip site approximately on 01/18 or 01/19 per nursing report. There has been no described drainage from her hip. Patient denies any specific areas pain in her hip joint. There is no reported fevers or chills or night sweats at time of initial consultation. The patient denies any new respiratory, abdominal or urinary symptoms. Specifically she denies any UTI symptoms Infectious disease consult 01/21/2024 ROS A complete review of systems are negative except those consistent with HPI OBJECTIVE Past Medical History: Diagnosis Date Aortic aneurysm Arthritis Deep vein thrombosis (DVT) GERD (gastroesophageal reflux disease) Past Medical History: Diagnosis Date Aortic aneurysm Arthritis Deep vein thrombosis (DVT) GERD (gastroesophageal reflux disease) Past Surgical History: Procedure Laterality Date ARTHROPLASTY HIP TOTAL Left 01/11/2024 Laterality: Left; Surgeon: Erik Heredia MD; Location: [facility] OR NEPHRECTOMY Right 1978 CHOLECYSTECTOMY HIP REPLACEMENT Right HYSTERECTOMY KNEE REPLACEMENT Bilateral left x 2 LITHOTRIPSY multiple Patient Active Problem List Diagnosis S/P total hip arthroplasty Gout Aneurysm of ascending aorta without rupture Aneurysmal dilatation Closed fracture of hand Fracture of metacarpal bone Gastro-esophageal reflux disease without esophagitis Hypomagnesemia Lumbar spondylosis Mixed stress and urge urinary incontinence Morbid (severe) obesity due to excess calories Other disorders of plasma-protein metabolism, not elsewhere classified Pulmonary embolism Solitary kidney, acquired Thoracic aortic ectasia Unilateral primary osteoarthritis, left hip Unsteadiness on feet S/P total left hip arthroplasty Social History Socioeconomic History Marital status: Single Spouse name: Not on file Number of children: Not on file Years of education: Not on file Highest education level: Not on file Occupational History Not on file Tobacco Use Smoking status: Never Smokeless tobacco: Never Substance and Sexual Activity Alcohol use: Never Drug use: Never Sexual activity: Not on file Other Topics Concern Not on file Social History Narrative Not on file Social Determinants of Health Financial Resource Strain: Low Risk (01/21/2024) Overall Financial Resource Strain (CARDIA) Difficulty of Paying Living Expenses: Not very hard Food Insecurity: No Food Insecurity (01/21/2024) Hunger Vital Sign Worried About Running Out of Food in the Last Year: Never true Ran Out of Food in the Last Year: Never true Transportation Needs: No Transportation Needs (01/21/2024) PRAPARE - Transportation Lack of Transportation (Medical): No Lack of Transportation (Non-Medical): No Physical Activity: Not on file Stress: Not on file Social Connections: Not on file Intimate Partner Violence: Not At Risk (01/21/2024) Humiliation, Afraid, Rape, and Kick questionnaire Fear of Current or Ex-Partner: No Emotionally Abused: No Physically Abused: No Sexually Abused: No Housing Stability: Low Risk (01/21/2024) Housing Stability Vital Sign Unable to Pay for Housing in the Last Year: No Number of Places Lived in the Last Year: 1 Unstable Housing in the Last Year: No Current Facility-Administered Medications: Acetaminophen (TYLENOL) tablet 650 mg, 650 mg, Oral, Q4H PRN, Mohan Gomez MD, 650 mg at 01/21/24 1208 Allopurinol (ZYLOPRIM) tablet 100 mg, 100 mg, Oral, Daily, Mohan Gomez MD, 100 mg at 01/21/24 0828 apixaban (ELIQUIS) tablet 5 mg, 5 mg, Oral, Q12H, Mohan Gomez MD, 5 mg at 01/21/24 0828 bisacodyl (DULCOLAX) suppository 10 mg, 10 mg, Rectal, Daily PRN, Mohan Gomez MD Cyclobenzaprine (FLEXERIL) tablet 5 mg, 5 mg, Oral, BID, Mohan Gomez MD, 5 mg at 01/21/24 0829 Docusate (COLACE) capsule 100 mg, 100 mg, Oral, BID, Mohan Gomez MD, 100 mg at 01/21/24 0830 ferrous sulfate tablet 325 mg, 325 mg, Oral, Daily, Mohan Gomez MD, 325 mg at 01/21/24 1348 hydroCODone-acetaminophen (NORCO) 5-325 MG per tablet 1 tablet, 1 tablet, Oral, Q4H PRN, Mohan Gomez MD hydroCODone-acetaminophen (NORCO) 5-325 MG per tablet 2 tablet, 2 tablet, Oral, Q4H PRN, Mohan Gomez MD, 2 tablet at 01/21/24 0918 lactulose (CHRONULAC) oral solution 20 g, 20 g, Oral, TID PRN, Mohan Gomez MD Linezolid (ZYVOX) tablet 600 mg, 600 mg, Oral, Q12H, Janet Moreno MD, 600 mg at 01/21/24 1208 Loratadine (CLARITIN) tablet 10 mg, 10 mg, Oral, Daily, Mohan Gomez MD, 10 mg at 01/21/24 0830 multivitamin tablet 1 tablet, 1 tablet, Oral, Daily, Mohan Gomez MD, 1 tablet at 01/21/24 0831 Pantoprazole (PROTONIX) tablet DR 40 mg, 40 mg, Oral, Daily, Mhoan Gomez MD, 40 mg at 01/21/24 0831 Polyethylene glycol (MIRALAX) packet 17 g, 17 g, Oral, TID PRN, Mohan Gomez MD senna-docusate (SENOKOT-S) 8.6-50 MG per tablet 2 tablet, 2 tablet, Oral, Q12H, Mohan Gomez MD Tolterodine (DETROL-LA) capsule XL 4 mg, 4 mg, Oral, Daily, Mohan Gomez MD, 4 mg at 01/21/24 08 Zolpidem (AMBIEN) tablet 5 mg, 5 mg, Oral, QHS PRN, Mohan Gomez MD, 5 mg at 01/20/243 Allergies Allergen Reactions Morphine Nausea and Vomiting Other Reaction(s): GI intolerance Oxycodone Nausea and Vomiting Other Reaction(s): GI intolerance Penicillins Hives Vitals: 01/20/24 1941 01/20/246 01/21/24 0717 01/21/24 0722 BP: 138/84 142/69 Pulse: 87 65 Resp: 20 18 Temp: 97.6 degrees F (36.4 degrees C) 97.8 degrees F (36.6 degrees C) TempSrc: Oral Oral SpO2: 94% 93% (!) 84% 92% Weight: Height: Intake/Output Summary (Last 24 hours) at 01/21/2024 1419 Last data filed at 01/20/2024 2100 Gross per 24 hour Intake 360 ml Output -- Net 360 ml Physical Exam: CONSTITUTIONAL: Alert and Oriented, in no distress, afebrile HEENT: Normocephalic and atraumatic, Sclera anicteric, PERRL CARDIAC: Normal rate, regular rhythm, normal heart sounds and intact distal pulses, no murmurs/rubs/clicks/gallops RESP: Effort normal and breath sounds are normal, but distant. No respiratory distress. No Wheezing/Rales/Cough, RA GI: Soft. Bowel sounds are normal. Nontender. Nondistended. Morbid obesity : No Suprapubic tenderness EXTREMITES: No cyanosis, clubbing; positive for history of left total knee arthroplasty. History of right total hip arthroplasty. Left total hip arthroplasty with incision with surrounding erythema approximately 1 cm on each side of incision that in circles. Mild warmth. No specific tenderness she reports. No drainage reported. Left greater than right lower extremity edema DERM: Skin is warm and dry. No rash noted MUSCULARSKELETAL: No arthritis noted NEUROLOGIC: Alert and communicative LAB RESULTS: WBC (WHITE BLOOD COUNT) Date/Time Value Ref Range Status 01/21/2024 05:08 AM 5.9 3.6 - 11.0 10*3/uL Final 01/20/2024 05:20 AM 6.3 3.6 - 11.0 10*3/uL Final 01/17/2024 04:31 AM 6.8 3.6 - 11.0 10*3/uL Final 01/14/2024 04:24 AM 9.9 3.6 - 11.0 10*3/uL Final 01/13/2024 04:38 AM 10.0 3.6 - 11.0 10*3/uL Final 01/12/2024 04:22 AM 10.5 3.6 - 11.0 10*3/uL Final 12/16/2023 12:35 PM 5.6 3.6 - 11.0 10*3/uL Final HEMOGLOBIN (HGB) Date/Time Value Ref Range Status 01/21/2024 05:08 AM 9.5 (L) 12.0 - 16.0 G/DL Final 01/20/2024 05:20 AM 9.4 (L) 12.0 - 16.0 G/DL Final 01/17/2024 04:31 AM 9.8 (L) 12.0 - 16.0 G/DL Final 01/14/2024 04:24 AM 10.5 (L) 12.0 - 16.0 G/DL Final 01/13/2024 04:38 AM 10.6 (L) 12.0 - 16.0 G/DL Final 01/12/2024 04:22 AM 10.9 (L) 12.0 - 16.0 G/DL Final 12/16/2023 12:35 PM 12.8 12.0 - 16.0 G/DL Final HEMATOCRIT (HCT) Date/Time Value Ref Range Status 01/21/2024 05:08 AM 27.7 (L) 36.0 - 48.0 % Final 01/20/2024 05:20 AM 27.6 (L) 36.0 - 48.0 % Final 01/17/2024 04:31 AM 29.2 (L) 36.0 - 48.0 % Final 01/14/2024 04:24 AM 32.1 (L) 36.0 - 48.0 % Final 01/13/2024 04:38 AM 31.8 (L) 36.0 - 48.0 % Final 01/12/2024 04:22 AM 33.3 (L) 36.0 - 48.0 % Final 12/16/2023 12:35 PM 39.2 36.0 - 48.0 % Final PLATELET COUNT Date/Time Value Ref Range Status 01/21/2024 05:08 AM 370 130 - 400 10*3/uL Final 01/20/2024 05:20 AM 357 130 - 400 10*3/uL Final 01/17/2024 04:31 AM 279 130 - 400 10*3/uL Final 01/14/2024 04:24 AM 226 130 - 400 10*3/uL Final 01/13/2024 04:38 AM 228 130 - 400 10*3/uL Final 01/12/2024 04:22 AM 247 130 - 400 10*3/uL Final 12/16/2023 12:35 PM 298 130 - 400 10*3/uL Final POTASSIUM Date/Time Value Ref Range Status 01/21/2024 05:08 AM 3.6 3.5 - 5.1 MMOL/L Final 01/20/2024 05:20 AM 3.8 3.5 - 5.1 MMOL/L Final 01/18/2024 04:43 AM 3.5 3.5 - 5.1 MMOL/L Final 01/17/2024 04:31 AM 3.3 (L) 3.5 - 5.1 MMOL/L Final 01/13/2024 04:38 AM 4.2 3.5 - 5.1 MMOL/L Final 01/12/2024 04:22 AM 4.0 3.5 - 5.1 MMOL/L Final 12/16/2023 12:35 PM 4.0 3.5 - 5.1 MMOL/L Final CHLORIDE Date/Time Value Ref Range Status 01/21/2024 05:08 AM 102 98 - 107 MMOL/L Final Comment: Please note: Triglyceride levels of 600mg/dL or higher may positively bias chloride results by approximately 2.1 mmol 01/20/2024 05:20 AM 103 98 - 107 MMOL/L Final Comment: Please note: Triglyceride levels of 600mg/dL or higher may positively bias chloride results by approximately 2.1 mmol 01/18/2024 04:43 AM 105 98 - 107 MMOL/L Final Comment: Please note: Triglyceride levels of 600mg/dL or higher may positively bias chloride results by approximately 2.1 mmol 01/17/2024 04:31 AM 105 98 - 107 MMOL/L Final Comment: Please note: Triglyceride levels of 600mg/dL or higher may positively bias chloride results by approximately 2.1 mmol 01/13/2024 04:38 AM 107 98 - 107 MMOL/L Final Comment: Please note: Triglyceride levels of 600mg/dL or higher may positively bias chloride results by approximately 2.1 mmol 01/12/2024 04:22 AM 105 98 - 107 MMOL/L Final Comment: Please note: Triglyceride levels of 600mg/dL or higher may positively bias chloride results by approximately 2.1 mmol 12/16/2023 12:35 PM 107 98 - 107 MMOL/L Final Comment: Please note: Triglyceride levels of 600mg/dL or higher may positively bias chloride results by approximately 2.1 mmol CARBON DIOXIDE (CO2) Date/Time Value Ref Range Status 01/21/2024 05:08 AM 32 (H) 22 - 30 MMOL/L Final 01/20/2024 05:20 AM 31 (H) 22 - 30 MMOL/L Final 01/18/2024 04:43 AM 27 22 - 30 MMOL/L Final 01/17/2024 04:31 AM 29 22 - 30 MMOL/L Final 01/13/2024 04:38 AM 26 22 - 30 MMOL/L Final 01/12/2024 04:22 AM 24 22 - 30 MMOL/L Final 12/16/2023 12:35 PM 28 22 - 30 MMOL/L Final Glucose Date/Time Value Ref Range Status 01/21/2024 05:08 AM 100 70 - 100 MG/DL Final Comment: NORMAL <100 mg/dL PREDIABETES 101-126 mg/dL DIABETES 126 mg/dL or higher 01/20/2024 05:20 AM 91 70 - 100 MG/DL Final Comment: NORMAL <100 mg/dL PREDIABETES 101-126 mg/dL DIABETES 126 mg/dL or higher 01/18/2024 04:43 AM 119 (H) 70 - 100 MG/DL Final Comment: NORMAL <100 mg/dL PREDIABETES 101-126 mg/dL DIABETES 126 mg/dL or higher 01/17/2024 04:31 AM 106 (H) 70 - 100 MG/DL Final Comment: NORMAL <100 mg/dL PREDIABETES 101-126 mg/dL DIABETES 126 mg/dL or higher 01/13/2024 04:38 AM 164 (H) 70 - 100 MG/DL Final Comment: NORMAL <100 mg/dL PREDIABETES 101-126 mg/dL DIABETES 126 mg/dL or higher 01/12/2024 04:22 AM 179 (H) 70 - 100 MG/DL Final Comment: NORMAL <100 mg/dL PREDIABETES 101-126 mg/dL DIABETES 126 mg/dL or higher 12/16/2023 12:35 PM 115 (H) 70 - 100 MG/DL Final Comment: NORMAL <100 mg/dL PREDIABETES 101-126 mg/dL DIABETES 126 mg/dL or higher BUN Date/Time Value Ref Range Status 01/21/2024 05:08 AM 8 7 - 20 MG/DL Final 01/20/2024 05:20 AM 9 7 - 20 MG/DL Final 01/18/2024 04:43 AM 10 7 - 20 MG/DL Final 01/17/2024 04:31 AM 10 7 - 20 MG/DL Final 01/13/2024 04:38 AM 19 7 - 20 MG/DL Final 01/12/2024 04:22 AM 16 7 - 20 MG/DL Final 12/16/2023 12:35 PM 19 7 - 20 MG/DL Final CREATININE SERUM Date/Time Value Ref Range Status 01/21/2024 05:08 AM 0.60 (L) 0.7 - 1.2 MG/DL Final 01/20/2024 05:20 AM 0.60 (L) 0.7 - 1.2 MG/DL Final 01/18/2024 04:43 AM 0.60 (L) 0.70 - 1.20 MG/DL Final 01/17/2024 04:31 AM 0.51 (L) 0.70 - 1.20 MG/DL Final 01/13/2024 04:38 AM 0.70 0.70 - 1.20 MG/DL Final 01/12/2024 04:22 AM 0.70 0.70 - 1.20 MG/DL Final 12/16/2023 12:35 PM 0.80 0.70 - 1.20 MG/DL Final Albumin Date/Time Value Ref Range Status 01/17/2024 04:31 AM 2.6 (L) 3.5 - 5.0 G/dl Final 12/16/2023 12:35 PM 4.0 3.5 - 5.0 G/dl Final CALCIUM Date/Time Value Ref Range Status 01/21/2024 05:08 AM 8.6 8.4 - 10.2 MG/DL Final 01/20/2024 05:20 AM 8.3 (L) 8.4 - 10.2 MG/DL Final 01/18/2024 04:43 AM 8.4 8.4 - 10.2 MG/DL Final 01/17/2024 04:31 AM 8.2 (L) 8.4 - 10.2 MG/DL Final 01/13/2024 04:38 AM 9.0 8.4 - 10.2 MG/DL Final 01/12/2024 04:22 AM 9.1 8.4 - 10.2 MG/DL Final 12/16/2023 12:35 PM 9.9 8.4 - 10.2 MG/DL Final ALKALINE PHOSPHATASE Date/Time Value Ref Range Status 12/16/2023 12:35 PM 89 38 - 126 IU/L Final AST Date/Time Value Ref Range Status 12/16/2023 12:35 PM 25 14 - 36 IU/L Final BILIRUBIN, TOTAL Date/Time Value Ref Range Status 12/16/2023 12:35 PM 0.3 0.2 - 1.3 MG/DL Final ANION GAP Date/Time Value Ref Range Status 01/21/2024 05:08 AM 3 (L) 8 - 16 MMOL/L Final 01/20/2024 05:20 AM 2 (L) 8 - 16 MMOL/L Final 01/18/2024 04:43 AM 3 MMOL/L Final 01/13/2024 04:38 AM 4 MMOL/L Final 01/12/2024 04:22 AM 9 MMOL/L Final ALT Date/Time Value Ref Range Status 12/16/2023 12:35 PM 16 <35 IU/L Final ESTIMATED GFR, NON AMER Date/Time Value Ref Range Status 01/21/2024 05:08 AM 102 ml/min/1.73sq.m Final 01/20/2024 05:20 AM 102 ml/min/1.73sq.m Final 01/18/2024 04:43 AM 102 ml/min/1.73sq.m Final 01/17/2024 04:31 AM 123 ml/min/1.73sq.m Final 01/13/2024 04:38 AM 85 ml/min/1.73sq.m Final 01/12/2024 04:22 AM 85 ml/min/1.73sq.m Final 12/16/2023 12:35 PM 73 ml/min/1.73sq.m Final ESTIMATED GFR, Date/Time Value Ref Range Status 01/21/2024 05:08 AM 123 ml/min/1.73sq.m Final 01/20/2024 05:20 AM 123 ml/min/1.73sq.m Final 01/18/2024 04:43 AM 123 ml/min/1.73sq.m Final 01/17/2024 04:31 AM 149 ml/min/1.73sq.m Final 01/13/2024 04:38 AM 103 ml/min/1.73sq.m Final 01/12/2024 04:22 AM 103 ml/min/1.73sq.m Final 12/16/2023 12:35 PM 89 ml/min/1.73sq.m Final GFR COMMENT Date/Time Value Ref Range Status 01/21/2024 05:08 AM Average GFR for 70+ years old = 75. Final Comment: Chronic Kidney disease, GFR = <60. Kidney failure, GFR = <15. The GFR estimate is not adjusted for extreme body surface area or acute process, nor has it been validated for women or ethnic groups other than and . CBC Lab Results Component Value Date WBC 5.9 01/21/2024 HGB 9.5 (L) 01/21/2024 HCT 27.7 (L) 01/21/2024 PLATELET 370 01/21/2024 MCV 95.0 01/21/2024 EDIF Lab Results Component Value Date RBCDISTRIBU 14.1 01/21/2024 EOSINOPHILS 3.6 01/21/2024 EOSINOPHILS 0.2 01/21/2024 BASOPHILS 0.6 01/21/2024 BASOPHILS 0.0 01/21/2024 LYMPHOCYTABS 1.2 01/21/2024 PLATELET 370 01/21/2024 MPV 6.9 (L) 01/21/2024 Lab Results Component Value Date SODIUM 137 01/21/2024 POTASSIUM 3.6 01/21/2024 CHLORIDE 102 01/21/2024 CO2 32 (H) 01/21/2024 BUN 8 01/21/2024 CREATSERUM 0.60 (L) 01/21/2024 GLUCOSE 100 01/21/2024 Micro 01/20 Nares - 12/16/2023 positive nares test for MSSA 12/15 urine test positive for Klebsiella only resistant to ampicillin and Macrobid XR CHEST 1 VIEW PORTABLE Final Result IMPRESSION: 1. Cardiomegaly. 2. Aortic tortuosity. 3. Minor effusion in the left lung base is suspected. 4. Both lungs are expanded. I am not seeing any obvious displaced fracture although detail is limited. There are accentuated interstitial markings which may well be chronic. ASSESSMENT AND PLAN . Cuate Goodman 83 y.o. with a history of multiple medical problems including DVT/PE, morbid obesity, degenerative joint disease presents with left hip pain undergoing left total hip arthroplasty on 01/10 showing degenerative changes Left total hip arthroplasty, concern for superficial wound infection -history of development of erythema around the incision site on 01/18 or 01/19 without systemic signs of infection -check wound culture if there is any drainage -perioperative nares culture was positive for MSSA, repeat culture ordered 01/20 -inflammatory markers. -Pending further culture data, we will begin Zyvox 600 mg twice daily. We will consider deescalating to Septra if cultures do not show MRSA -if the patient's redness would worsen despite oral antibiotics, we will likely recommend escalating to IV therapy -antibiotic therapy will be given especially in the setting of underlying hardware in the postop period to try to prevent any spread of superficial infection to deeper areas of hardware and this was discussed with her and all questions answered History of Klebsiella positive urine culture -urinalysis 12/15 with too numerous to count white cells and +3 bacteria -history of Klebsiella positive urine culture in November of 2023 only resistant to ampicillin and Macrobid -patient denies any urinary symptoms but given close proximity to left hip surgery, urine testing given signs of erythema on examination of hip Inflammatory markers -check a.m. ESR and CRP Anemia -hemoglobin 9.5 -previous anemia workup in November of 2022 was negative with normal iron, B12 and folate studies -anemia workup Healthcare maintenance -hemoglobin A1c normal at 5.7 on 12/15 History of DVT/PE -anticoagulation per primary team Disposition -ongoing PT/OT Thank you for this consultation Evaluation entailed >60 minutes of face to face examination, lab review and interpretation, radiology review and interpretation, evaluation of culture data and review of relevant literature and guidelines. Recommendations d/w patient and family if available during consultation process. Janet Moreno MD documented in this encounter [facility] 01-21-2024 Consult note Associated Order (s): IP CONSULT TO INFECTIOUS DISEASE Infectious Disease Consultation Note Consultation Requested by: Dr Gomez Reason for Consult: Erythema at left post hip arthroplastic surgery sites for evaluation of concern for postoperative infection SUBJECTIVE History of Present Illness: Cuate Goodman 83 y.o. female with a history of left degenerative hip disease with ongoing left hip pain with reported decreased quality of life due to this condition. The patient was seen by Orthopedics and Dr. Heredia performed surgery 01/10 with a left total hip arthroplasty. Total hip arthroplastic surgery on 01/10 did not have noted complications or infectious issues per chart review. The patient was subsequently discharged after an admission from 01/10-01/18 on the med surg unit without stated ID issue. There was no antibiotics at time of discharge. Pathology from knee replacement surgery showed consistent with degenerative joint disease without mention of infection. Has history of previous right total hip arthroplasty and left total knee arthroplasty noted. Past medical history also includes obesity, degenerative joint disease and history of DVT and PE. Additional history includes right bundle-branch block, diastolic dysfunction, B12 deficiency, impaired fasting glucose with normal preoperative A1c, elevated uric acid level, GERD, urinary incontinence, history of abdominal aortic aneurysm. Patient does have a history of penicillin allergy resulting in hives but no other allergies to antibiotics noted. The patient denies any tobacco, alcohol or drug use. No prior use reported. Patient was subsequently admitted swing bed for rehabilitation on 01/18. Patient underwent pain control, PT/OT and ongoing medical management. Patient was noted to have erythema that began around her left hip site approximately on 01/18 or 01/19 per nursing report. There has been no described drainage from her hip. Patient denies any specific areas pain in her hip joint. There is no reported fevers or chills or night sweats at time of initial consultation. The patient denies any new respiratory, abdominal or urinary symptoms. Specifically she denies any UTI symptoms Infectious disease consult 01/21/2024 ROS A complete review of systems are negative except those consistent with HPI OBJECTIVE Past Medical History: Diagnosis Date Aortic aneurysm Arthritis Deep vein thrombosis (DVT) GERD (gastroesophageal reflux disease) Past Medical History: Diagnosis Date Aortic aneurysm Arthritis Deep vein thrombosis (DVT) GERD (gastroesophageal reflux disease) Past Surgical History: Procedure Laterality Date ARTHROPLASTY HIP TOTAL Left 01/11/2024 Laterality: Left; Surgeon: Erik Heredia MD; Location: [facility] OR NEPHRECTOMY Right 1978 CHOLECYSTECTOMY HIP REPLACEMENT Right HYSTERECTOMY KNEE REPLACEMENT Bilateral left x 2 LITHOTRIPSY multiple Patient Active Problem List Diagnosis S/P total hip arthroplasty Gout Aneurysm of ascending aorta without rupture Aneurysmal dilatation Closed fracture of hand Fracture of metacarpal bone Gastro-esophageal reflux disease without esophagitis Hypomagnesemia Lumbar spondylosis Mixed stress and urge urinary incontinence Morbid (severe) obesity due to excess calories Other disorders of plasma-protein metabolism, not elsewhere classified Pulmonary embolism Solitary kidney, acquired Thoracic aortic ectasia Unilateral primary osteoarthritis, left hip Unsteadiness on feet S/P total left hip arthroplasty Social History Socioeconomic History Marital status: Single Spouse name: Not on file Number of children: Not on file Years of education: Not on file Highest education level: Not on file Occupational History Not on file Tobacco Use Smoking status: Never Smokeless tobacco: Never Substance and Sexual Activity Alcohol use: Never Drug use: Never Sexual activity: Not on file Other Topics Concern Not on file Social History Narrative Not on file Social Determinants of Health Financial Resource Strain: Low Risk (01/21/2024) Overall Financial Resource Strain (CARDIA) Difficulty of Paying Living Expenses: Not very hard Food Insecurity: No Food Insecurity (01/21/2024) Hunger Vital Sign Worried About Running Out of Food in the Last Year: Never true Ran Out of Food in the Last Year: Never true Transportation Needs: No Transportation Needs (01/21/2024) PRAPARE - Transportation Lack of Transportation (Medical): No Lack of Transportation (Non-Medical): No Physical Activity: Not on file Stress: Not on file Social Connections: Not on file Intimate Partner Violence: Not At Risk (01/21/2024) Humiliation, Afraid, Rape, and Kick questionnaire Fear of Current or Ex-Partner: No Emotionally Abused: No Physically Abused: No Sexually Abused: No Housing Stability: Low Risk (01/21/2024) Housing Stability Vital Sign Unable to Pay for Housing in the Last Year: No Number of Places Lived in the Last Year: 1 Unstable Housing in the Last Year: No Current Facility-Administered Medications: Acetaminophen (TYLENOL) tablet 650 mg, 650 mg, Oral, Q4H PRN, Mohan Gomez MD, 650 mg at 01/21/24 1208 Allopurinol (ZYLOPRIM) tablet 100 mg, 100 mg, Oral, Daily, Mohan Gomez MD, 100 mg at 01/21/24 0828 apixaban (ELIQUIS) tablet 5 mg, 5 mg, Oral, Q12H, Mohan Gomez MD, 5 mg at 01/21/24 0828 bisacodyl (DULCOLAX) suppository 10 mg, 10 mg, Rectal, Daily PRN, Mohan Gomez MD Cyclobenzaprine (FLEXERIL) tablet 5 mg, 5 mg, Oral, BID, Mohan Gomez MD, 5 mg at 01/21/24 0829 Docusate (COLACE) capsule 100 mg, 100 mg, Oral, BID, Mohan Gomez MD, 100 mg at 01/21/24 0830 ferrous sulfate tablet 325 mg, 325 mg, Oral, Daily, Mohan Gomez MD, 325 mg at 01/21/24 1348 hydroCODone-acetaminophen (NORCO) 5-325 MG per tablet 1 tablet, 1 tablet, Oral, Q4H PRN, Mohan Gomez MD hydroCODone-acetaminophen (NORCO) 5-325 MG per tablet 2 tablet, 2 tablet, Oral, Q4H PRN, Moahn Gomez MD, 2 tablet at 01/21/24 0918 lactulose (CHRONULAC) oral solution 20 g, 20 g, Oral, TID PRN, Mohan Gomez MD Linezolid (ZYVOX) tablet 600 mg, 600 mg, Oral, Q12H, Janet Moreno MD, 600 mg at 01/21/24 1208 Loratadine (CLARITIN) tablet 10 mg, 10 mg, Oral, Daily, Mohan Gomez MD, 10 mg at 01/21/24 0830 multivitamin tablet 1 tablet, 1 tablet, Oral, Daily, Mohan Gomez MD, 1 tablet at 01/21/24 0831 Pantoprazole (PROTONIX) tablet DR 40 mg, 40 mg, Oral, Daily, Mohan Gomez MD, 40 mg at 01/21/24 0831 Polyethylene glycol (MIRALAX) packet 17 g, 17 g, Oral, TID PRN, Mohan Gomez MD senna-docusate (SENOKOT-S) 8.6-50 MG per tablet 2 tablet, 2 tablet, Oral, Q12H, Mohan Gomez MD Tolterodine (DETROL-LA) capsule XL 4 mg, 4 mg, Oral, Daily, Mohan Gomez MD, 4 mg at 01/21/24 0831 Zolpidem (AMBIEN) tablet 5 mg, 5 mg, Oral, QHS PRN, Mohan Gomez MD, 5 mg at 01/20/243 Allergies Allergen Reactions Morphine Nausea and Vomiting Other Reaction(s): GI intolerance Oxycodone Nausea and Vomiting Other Reaction(s): GI intolerance Penicillins Hives Vitals: 01/20/24 1941 01/20/24202501/21/2471601/21/24721 BP: 138/84 142/69 Pulse: 87 65 Resp: 20 18 Temp: 97.6 degrees F (36.4 degrees C) 97.8 degrees F (36.6 degrees C) TempSrc: Oral Oral SpO2: 94% 93% (!) 84% 92% Weight: Height: Intake/Output Summary (Last 24 hours) at 01/21/2024 1419 Last data filed at 01/20/2024 2100 Gross per 24 hour Intake 360 ml Output -- Net 360 ml Physical Exam: CONSTITUTIONAL: Alert and Oriented, in no distress, afebrile HEENT: Normocephalic and atraumatic, Sclera anicteric, PERRL CARDIAC: Normal rate, regular rhythm, normal heart sounds and intact distal pulses, no murmurs/rubs/clicks/gallops RESP: Effort normal and breath sounds are normal, but distant. No respiratory distress. No Wheezing/Rales/Cough, RA GI: Soft. Bowel sounds are normal. Nontender. Nondistended. Morbid obesity : No Suprapubic tenderness EXTREMITES: No cyanosis, clubbing; positive for history of left total knee arthroplasty. History of right total hip arthroplasty. Left total hip arthroplasty with incision with surrounding erythema approximately 1 cm on each side of incision that in circles. Mild warmth. No specific tenderness she reports. No drainage reported. Left greater than right lower extremity edema DERM: Skin is warm and dry. No rash noted MUSCULARSKELETAL: No arthritis noted NEUROLOGIC: Alert and communicative LAB RESULTS: WBC (WHITE BLOOD COUNT) Date/Time Value Ref Range Status 01/21/2024 05:08 AM 5.9 3.6 - 11.0 10*3/uL Final 01/20/2024 05:20 AM 6.3 3.6 - 11.0 10*3/uL Final 01/17/2024 04:31 AM 6.8 3.6 - 11.0 10*3/uL Final 01/14/2024 04:24 AM 9.9 3.6 - 11.0 10*3/uL Final 01/13/2024 04:38 AM 10.0 3.6 - 11.0 10*3/uL Final 01/12/2024 04:22 AM 10.5 3.6 - 11.0 10*3/uL Final 12/16/2023 12:35 PM 5.6 3.6 - 11.0 10*3/uL Final HEMOGLOBIN (HGB) Date/Time Value Ref Range Status 01/21/2024 05:08 AM 9.5 (L) 12.0 - 16.0 G/DL Final 01/20/2024 05:20 AM 9.4 (L) 12.0 - 16.0 G/DL Final 01/17/2024 04:31 AM 9.8 (L) 12.0 - 16.0 G/DL Final 01/14/2024 04:24 AM 10.5 (L) 12.0 - 16.0 G/DL Final 01/13/2024 04:38 AM 10.6 (L) 12.0 - 16.0 G/DL Final 01/12/2024 04:22 AM 10.9 (L) 12.0 - 16.0 G/DL Final 12/16/2023 12:35 PM 12.8 12.0 - 16.0 G/DL Final HEMATOCRIT (HCT) Date/Time Value Ref Range Status 01/21/2024 05:08 AM 27.7 (L) 36.0 - 48.0 % Final 01/20/2024 05:20 AM 27.6 (L) 36.0 - 48.0 % Final 01/17/2024 04:31 AM 29.2 (L) 36.0 - 48.0 % Final 01/14/2024 04:24 AM 32.1 (L) 36.0 - 48.0 % Final 01/13/2024 04:38 AM 31.8 (L) 36.0 - 48.0 % Final 01/12/2024 04:22 AM 33.3 (L) 36.0 - 48.0 % Final 12/16/2023 12:35 PM 39.2 36.0 - 48.0 % Final PLATELET COUNT Date/Time Value Ref Range Status 01/21/2024 05:08 AM 370 130 - 400 10*3/uL Final 01/20/2024 05:20 AM 357 130 - 400 10*3/uL Final 01/17/2024 04:31 AM 279 130 - 400 10*3/uL Final 01/14/2024 04:24 AM 226 130 - 400 10*3/uL Final 01/13/2024 04:38 AM 228 130 - 400 10*3/uL Final 01/12/2024 04:22 AM 247 130 - 400 10*3/uL Final 12/16/2023 12:35 PM 298 130 - 400 10*3/uL Final POTASSIUM Date/Time Value Ref Range Status 01/21/2024 05:08 AM 3.6 3.5 - 5.1 MMOL/L Final 01/20/2024 05:20 AM 3.8 3.5 - 5.1 MMOL/L Final 01/18/2024 04:43 AM 3.5 3.5 - 5.1 MMOL/L Final 01/17/2024 04:31 AM 3.3 (L) 3.5 - 5.1 MMOL/L Final 01/13/2024 04:38 AM 4.2 3.5 - 5.1 MMOL/L Final 01/12/2024 04:22 AM 4.0 3.5 - 5.1 MMOL/L Final 12/16/2023 12:35 PM 4.0 3.5 - 5.1 MMOL/L Final CHLORIDE Date/Time Value Ref Range Status 01/21/2024 05:08 AM 102 98 - 107 MMOL/L Final Comment: Please note: Triglyceride levels of 600mg/dL or higher may positively bias chloride results by approximately 2.1 mmol 01/20/2024 05:20 AM 103 98 - 107 MMOL/L Final Comment: Please note: Triglyceride levels of 600mg/dL or higher may positively bias chloride results by approximately 2.1 mmol 01/18/2024 04:43 AM 105 98 - 107 MMOL/L Final Comment: Please note: Triglyceride levels of 600mg/dL or higher may positively bias chloride results by approximately 2.1 mmol 01/17/2024 04:31 AM 105 98 - 107 MMOL/L Final Comment: Please note: Triglyceride levels of 600mg/dL or higher may positively bias chloride results by approximately 2.1 mmol 01/13/2024 04:38 AM 107 98 - 107 MMOL/L Final Comment: Please note: Triglyceride levels of 600mg/dL or higher may positively bias chloride results by approximately 2.1 mmol 01/12/2024 04:22 AM 105 98 - 107 MMOL/L Final Comment: Please note: Triglyceride levels of 600mg/dL or higher may positively bias chloride results by approximately 2.1 mmol 12/16/2023 12:35 PM 107 98 - 107 MMOL/L Final Comment: Please note: Triglyceride levels of 600mg/dL or higher may positively bias chloride results by approximately 2.1 mmol CARBON DIOXIDE (CO2) Date/Time Value Ref Range Status 01/21/2024 05:08 AM 32 (H) 22 - 30 MMOL/L Final 01/20/2024 05:20 AM 31 (H) 22 - 30 MMOL/L Final 01/18/2024 04:43 AM 27 22 - 30 MMOL/L Final 01/17/2024 04:31 AM 29 22 - 30 MMOL/L Final 01/13/2024 04:38 AM 26 22 - 30 MMOL/L Final 01/12/2024 04:22 AM 24 22 - 30 MMOL/L Final 12/16/2023 12:35 PM 28 22 - 30 MMOL/L Final Glucose Date/Time Value Ref Range Status 01/21/2024 05:08 AM 100 70 - 100 MG/DL Final Comment: NORMAL <100 mg/dL PREDIABETES 101-126 mg/dL DIABETES 126 mg/dL or higher 01/20/2024 05:20 AM 91 70 - 100 MG/DL Final Comment: NORMAL <100 mg/dL PREDIABETES 101-126 mg/dL DIABETES 126 mg/dL or higher 01/18/2024 04:43 AM 119 (H) 70 - 100 MG/DL Final Comment: NORMAL <100 mg/dL PREDIABETES 101-126 mg/dL DIABETES 126 mg/dL or higher 01/17/2024 04:31 AM 106 (H) 70 - 100 MG/DL Final Comment: NORMAL <100 mg/dL PREDIABETES 101-126 mg/dL DIABETES 126 mg/dL or higher 01/13/2024 04:38 AM 164 (H) 70 - 100 MG/DL Final Comment: NORMAL <100 mg/dL PREDIABETES 101-126 mg/dL DIABETES 126 mg/dL or higher 01/12/2024 04:22 AM 179 (H) 70 - 100 MG/DL Final Comment: NORMAL <100 mg/dL PREDIABETES 101-126 mg/dL DIABETES 126 mg/dL or higher 12/16/2023 12:35 PM 115 (H) 70 - 100 MG/DL Final Comment: NORMAL <100 mg/dL PREDIABETES 101-126 mg/dL DIABETES 126 mg/dL or higher BUN Date/Time Value Ref Range Status 01/21/2024 05:08 AM 8 7 - 20 MG/DL Final 01/20/2024 05:20 AM 9 7 - 20 MG/DL Final 01/18/2024 04:43 AM 10 7 - 20 MG/DL Final 01/17/2024 04:31 AM 10 7 - 20 MG/DL Final 01/13/2024 04:38 AM 19 7 - 20 MG/DL Final 01/12/2024 04:22 AM 16 7 - 20 MG/DL Final 12/16/2023 12:35 PM 19 7 - 20 MG/DL Final CREATININE SERUM Date/Time Value Ref Range Status 01/21/2024 05:08 AM 0.60 (L) 0.7 - 1.2 MG/DL Final 01/20/2024 05:20 AM 0.60 (L) 0.7 - 1.2 MG/DL Final 01/18/2024 04:43 AM 0.60 (L) 0.70 - 1.20 MG/DL Final 01/17/2024 04:31 AM 0.51 (L) 0.70 - 1.20 MG/DL Final 01/13/2024 04:38 AM 0.70 0.70 - 1.20 MG/DL Final 01/12/2024 04:22 AM 0.70 0.70 - 1.20 MG/DL Final 12/16/2023 12:35 PM 0.80 0.70 - 1.20 MG/DL Final Albumin Date/Time Value Ref Range Status 01/17/2024 04:31 AM 2.6 (L) 3.5 - 5.0 G/dl Final 12/16/2023 12:35 PM 4.0 3.5 - 5.0 G/dl Final CALCIUM Date/Time Value Ref Range Status 01/21/2024 05:08 AM 8.6 8.4 - 10.2 MG/DL Final 01/20/2024 05:20 AM 8.3 (L) 8.4 - 10.2 MG/DL Final 01/18/2024 04:43 AM 8.4 8.4 - 10.2 MG/DL Final 01/17/2024 04:31 AM 8.2 (L) 8.4 - 10.2 MG/DL Final 01/13/2024 04:38 AM 9.0 8.4 - 10.2 MG/DL Final 01/12/2024 04:22 AM 9.1 8.4 - 10.2 MG/DL Final 12/16/2023 12:35 PM 9.9 8.4 - 10.2 MG/DL Final ALKALINE PHOSPHATASE Date/Time Value Ref Range Status 12/16/2023 12:35 PM 89 38 - 126 IU/L Final AST Date/Time Value Ref Range Status 12/16/2023 12:35 PM 25 14 - 36 IU/L Final BILIRUBIN, TOTAL Date/Time Value Ref Range Status 12/16/2023 12:35 PM 0.3 0.2 - 1.3 MG/DL Final ANION GAP Date/Time Value Ref Range Status 01/21/2024 05:08 AM 3 (L) 8 - 16 MMOL/L Final 01/20/2024 05:20 AM 2 (L) 8 - 16 MMOL/L Final 01/18/2024 04:43 AM 3 MMOL/L Final 01/13/2024 04:38 AM 4 MMOL/L Final 01/12/2024 04:22 AM 9 MMOL/L Final ALT Date/Time Value Ref Range Status 12/16/2023 12:35 PM 16 <35 IU/L Final ESTIMATED GFR, NON AMER Date/Time Value Ref Range Status 01/21/2024 05:08 AM 102 ml/min/1.73sq.m Final 01/20/2024 05:20 AM 102 ml/min/1.73sq.m Final 01/18/2024 04:43 AM 102 ml/min/1.73sq.m Final 01/17/2024 04:31 AM 123 ml/min/1.73sq.m Final 01/13/2024 04:38 AM 85 ml/min/1.73sq.m Final 01/12/2024 04:22 AM 85 ml/min/1.73sq.m Final 12/16/2023 12:35 PM 73 ml/min/1.73sq.m Final ESTIMATED GFR, Date/Time Value Ref Range Status 01/21/2024 05:08 AM 123 ml/min/1.73sq.m Final 01/20/2024 05:20 AM 123 ml/min/1.73sq.m Final 01/18/2024 04:43 AM 123 ml/min/1.73sq.m Final 01/17/2024 04:31 AM 149 ml/min/1.73sq.m Final 01/13/2024 04:38 AM 103 ml/min/1.73sq.m Final 01/12/2024 04:22 AM 103 ml/min/1.73sq.m Final 12/16/2023 12:35 PM 89 ml/min/1.73sq.m Final GFR COMMENT Date/Time Value Ref Range Status 01/21/2024 05:08 AM Average GFR for 70+ years old = 75. Final Comment: Chronic Kidney disease, GFR = <60. Kidney failure, GFR = <15. The GFR estimate is not adjusted for extreme body surface area or acute process, nor has it been validated for women or ethnic groups other than and . CBC Lab Results Component Value Date WBC 5.9 01/21/2024 HGB 9.5 (L) 01/21/2024 HCT 27.7 (L) 01/21/2024 PLATELET 370 01/21/2024 MCV 95.0 01/21/2024 EDIF Lab Results Component Value Date RBCDISTRIBU 14.1 01/21/2024 EOSINOPHILS 3.6 01/21/2024 EOSINOPHILS 0.2 01/21/2024 BASOPHILS 0.6 01/21/2024 BASOPHILS 0.0 01/21/2024 LYMPHOCYTABS 1.2 01/21/2024 PLATELET 370 01/21/2024 MPV 6.9 (L) 01/21/2024 Lab Results Component Value Date SODIUM 137 01/21/2024 POTASSIUM 3.6 01/21/2024 CHLORIDE 102 01/21/2024 CO2 32 (H) 01/21/2024 BUN 8 01/21/2024 CREATSERUM 0.60 (L) 01/21/2024 GLUCOSE 100 01/21/2024 Micro 01/20 Nares - 12/16/2023 positive nares test for MSSA 12/15 urine test positive for Klebsiella only resistant to ampicillin and Macrobid XR CHEST 1 VIEW PORTABLE Final Result IMPRESSION: 1. Cardiomegaly. 2. Aortic tortuosity. 3. Minor effusion in the left lung base is suspected. 4. Both lungs are expanded. I am not seeing any obvious displaced fracture although detail is limited. There are accentuated interstitial markings which may well be chronic. ASSESSMENT AND PLAN . Cuate Goodman 83 y.o. with a history of multiple medical problems including DVT/PE, morbid obesity, degenerative joint disease presents with left hip pain undergoing left total hip arthroplasty on 01/10 showing degenerative changes Left total hip arthroplasty, concern for superficial wound infection -history of development of erythema around the incision site on 01/18 or 01/19 without systemic signs of infection -check wound culture if there is any drainage -perioperative nares culture was positive for MSSA, repeat culture ordered 01/20 -inflammatory markers. -Pending further culture data, we will begin Zyvox 600 mg twice daily. We will consider deescalating to Septra if cultures do not show MRSA -if the patient's redness would worsen despite oral antibiotics, we will likely recommend escalating to IV therapy -antibiotic therapy will be given especially in the setting of underlying hardware in the postop period to try to prevent any spread of superficial infection to deeper areas of hardware and this was discussed with her and all questions answered History of Klebsiella positive urine culture -urinalysis 12/15 with too numerous to count white cells and +3 bacteria -history of Klebsiella positive urine culture in November of 2023 only resistant to ampicillin and Macrobid -patient denies any urinary symptoms but given close proximity to left hip surgery, urine testing given signs of erythema on examination of hip Inflammatory markers -check a.m. ESR and CRP Anemia -hemoglobin 9.5 -previous anemia workup in November of 2022 was negative with normal iron, B12 and folate studies -anemia workup Healthcare maintenance -hemoglobin A1c normal at 5.7 on 12/15 History of DVT/PE -anticoagulation per primary team Disposition -ongoing PT/OT Thank you for this consultation Evaluation entailed >60 minutes of face to face examination, lab review and interpretation, radiology review and interpretation, evaluation of culture data and review of relevant literature and guidelines. Recommendations d/w patient and family if available during consultation process. Janet Moreno MD documented in this encounter [facility] 01-19-2024 History and physical note I saw Cuate Goodman at [facility] Assessment/Plan: 83 y.o. 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 1) Severe left hip arthritis s/p total hip arthroplasty PT/OT Continue with eliquis Continue with flexeril Continue with norco PRN Continue with senokot PRN Continue with tramadol PRN 2) Chronic normocytic anemia H and H 9.8 and 29.2 Iron studies pending. Serial CBC 3) Gout Currently on allopurinol 4) GERD Currently on protonix. Reason for admission Severe left hip arthritis s/p total hip arthroplasty History of Present Illness: Cuate Goodman is a 83 y.o. female with history of DVT, GERD, aortic aneurysm, diastolic heart failure, and HTN is admitted to swing bed for left total hip arthroplasty. She has severe left hip pain and elected for surgery. She did well postoperatively. Pain was controlled. She has persistent weakness and unable to care for herself. She is transferred to swing bed. Past Medical History: Diagnosis Date Aortic aneurysm Arthritis Deep vein thrombosis (DVT) GERD (gastroesophageal reflux disease) Medications Prior to Admission Medication Sig Dispense Refill Last Dose Acetaminophen 325 MG tablet Take 2 tablets by mouth every 4 hours as needed for Mild Pain. 50 tablet 1 Past Week Allopurinol 100 MG tablet Take 1 tablet by mouth daily. 01/19/2024 Cholecalciferol (Vitamin D-3) 25 MCG (1000 UT) capsule Take by mouth. Past Month cyanocobalamin 1000 MCG tablet Take 5 tablets by mouth. Past Month Docusate 100 MG capsule Take 1 capsule by mouth 2 times daily. 60 capsule 0 01/19/2024 Eliquis 5 MG tablet Take 1 tablet by mouth every 12 hours. 01/19/2024 omepraz[address] capsule 1 capsule daily. qam 01/19/2024 tolterodine 4 MG Cap SR 24HR Take 1 capsule by mouth daily. 01/19/2024 hydroCODone-acetaminophen 5-325 MG tablet Take 1-2 tablets by mouth every 6 hours as needed for up to 7 days. Do not take over 4000mg acetaminophen daily. 30 tablet 0 magnesium oxide 400 (240 Mg) MG Take 1 tablet by mouth 2 times daily. Unknown Multiple Vitamin (multivitamin) tablet Take 1 tablet by mouth daily. Unknown Scheduled Meds: Allopurinol 100 mg Oral Daily apixaban 5 mg Oral Q12H Cyclobenzaprine 5 mg Oral BID Docusate 100 mg Oral BID Loratadine 10 mg Oral Daily multivitamin 1 tablet Oral Daily Pantoprazole 40 mg Oral Daily tolterodine 4 mg Oral Daily IV Infusions: Allergies Allergen Reactions Morphine Nausea and Vomiting Other Reaction(s): GI intolerance Other Reaction(s): Unknown Oxycodone Nausea and Vomiting Other Reaction(s): GI intolerance Other Reaction(s): Unknown Penicillins Hives No family history on file. Social History Tobacco Use Smoking status: Never Smokeless tobacco: Never Substance Use Topics Alcohol use: Never Drug use: Never Review of Systems: General ROS: Otherwise remainder of 14-point ROS is negative HEENT: No complaints of headache change in vision, nose or ear No sinus issues Cadiovascular: No chest pain, no diaphoresis, no palpitation Gastrointestinal: No complaints of dysphagia, nausea, vomiting. No change in stool pattern, consistency, or color. No epigastric pain Genitourinary: No complaints of dysuria, nocturia, polyuria, or hematuria. Pulmonary: No cough, no SOB, no wheezing Musculoskeletal: No arthralgias, muscle aches, or pains. Neurological: No weakness, numbness, or incoordination Integumentary: No rashes, itching. No hair or nail changes Psychiatric: No anxiety, depression, or sleep disturbance Hematologic / lymphatic: No easy bruising or bleeding. No enlarged lymph nodes. Allergic / immunologic: No hay fever/seasonal nasal congestion. No food/medication reactions Physical Examination: Vital Signs Temp: [98 F (36.7 C)-98.9 F (37.2 C)] 98.9 F (37.2 C) Pulse (Heart Rate): [64-116] 78 Resp Rate: [16-18] 18 BP: (112-150)/(57-78) 133/60 O2 Sat (%): [93 %-97 %] 94 % Weight: [117.3 kg (258 lb 11.2 oz)] 117.3 kg (258 lb 11.2 oz) No intake/output data recorded. No intake/output data recorded. BP 133/60 (BP Location: Left arm, BP Position: Sitting) Comment (BP Location): left forearm Pulse 78 Temp 98.9 F (37.2 C) (Oral) Resp 18 Ht 1.626 m (5' 4 ) Wt 117.3 kg (258 lb 11.2 oz) Comment: bed scale SpO2 94% BMI 44.41 kg/m Smoking Status Never General: Alert, oriented and cooperative. NAD Skin: Normal in appearance, texture, and temperature HEENT: Scalp normal. Pupils equally round,reactive to light and accommodation, sclera and conjunctiva normal. Nasal mucosa normal. Oral pharynx is normal without erythema or exudate. Tongue and gums are normal. Neck: Easily moveable without resistance, no abnormal adenopathy in the cervical or supraclavicular areas. Trachea is midline and thyroid gland is normal without masses. Carotid artery upstroke is normal bilaterally without bruits. CV: RRR, nl S1 and S2, no m/g/r Lungs: Lungs are clear to auscultation and percussion bilaterally No wheezing, no crackle. Normal effort. Abdomen: The abdomen is symmetrical without distention; bowel sounds are normal in quality and intensity in all areas. No masses or splenomegaly are noted; noo hepatomegaly Extremities: No cyanosis, clubbing, or edema are noted. Peripheral pulses in the femoral, popliteal, anterior tibial, dorsalis pedis,brachial, and radial areas are normal. Nodes: No palpable nodes in the cervical, supraclavicular, axillary or inguinal areas. Neurological: Cranial nerves II-XII are normal. Motor and sensory examination of the upper and lower extremities is normal. Gait and cerebellar function are also normal. Reflexes are normal and symmetrical bilaterally in both extremities. Relevant Data: Lab Results Component Value Date SODIUM 135 (L) 01/18/2024 POTASSIUM 3.5 01/18/2024 CHLORIDE 105 01/18/2024 CO2 27 01/18/2024 BUN 10 01/18/2024 CREATSERUM 0.60 (L) 01/18/2024 GLUCOSE 119 (H) 01/18/2024 Lab Results Component Value Date CALCIUM 8.4 01/18/2024 PHOSPHORUS 2.6 01/17/2024 Lab Results Component Value Date WBC 6.8 01/17/2024 HGB 9.8 (L) 01/17/2024 HCT 29.2 (L) 01/17/2024 PLATELET 279 01/17/2024 MCV 94.6 01/17/2024 Lab Results Component Value Date SPGRVTYUR 1.025 12/16/2023 GLUCOSEURINE NEGATIVE 12/16/2023 BILIRUBINURI NEGATIVE 12/16/2023 KETONESURINE NEGATIVE 12/16/2023 NITRITESURIN POSITIVE (A) 12/16/2023 LEUKOCESTUR SMALL (A) 12/16/2023 WBCURINE TOO NUMEROUS TO COUNT (A) 12/16/2023 RBCURINE 1 TO 5 12/16/2023 BACTERIAURIN 3+ (A) 12/16/2023 Lab Results Component Value Date CREATSERUM 0.60 (L) 01/18/2024 CREATSERUM 0.51 (L) 01/17/2024 CREATSERUM 0.70 01/13/2024 documented in this encounter [facility] 01-19-2024 History and physical note I saw Cuate Goodman at [facility] Assessment/Plan: 83 y.o. 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 1) Severe left hip arthritis s/p total hip arthroplasty PT/OT Continue with eliquis Continue with flexeril Continue with norco PRN Continue with senokot PRN Continue with tramadol PRN 2) Chronic normocytic anemia H and H 9.8 and 29.2 Iron studies pending. Serial CBC 3) Gout Currently on allopurinol 4) GERD Currently on protonix. Reason for admission Severe left hip arthritis s/p total hip arthroplasty History of Present Illness: Cuate Goodman is a 83 y.o. female with history of DVT, GERD, aortic aneurysm, diastolic heart failure, and HTN is admitted to swing bed for left total hip arthroplasty. She has severe left hip pain and elected for surgery. She did well postoperatively. Pain was controlled. She has persistent weakness and unable to care for herself. She is transferred to swing bed. Past Medical History: Diagnosis Date Aortic aneurysm Arthritis Deep vein thrombosis (DVT) GERD (gastroesophageal reflux disease) Medications Prior to Admission Medication Sig Dispense Refill Last Dose Acetaminophen 325 MG tablet Take 2 tablets by mouth every 4 hours as needed for Mild Pain. 50 tablet 1 Past Week Allopurinol 100 MG tablet Take 1 tablet by mouth daily. 01/19/2024 Cholecalciferol (Vitamin D-3) 25 MCG (1000 UT) capsule Take by mouth. Past Month cyanocobalamin 1000 MCG tablet Take 5 tablets by mouth. Past Month Docusate 100 MG capsule Take 1 capsule by mouth 2 times daily. 60 capsule 0 01/19/2024 Eliquis 5 MG tablet Take 1 tablet by mouth every 12 hours. 01/19/2024 omepraz[address] capsule 1 capsule daily. qam 01/19/2024 tolterodine 4 MG Cap SR 24HR Take 1 capsule by mouth daily. 01/19/2024 hydroCODone-acetaminophen 5-325 MG tablet Take 1-2 tablets by mouth every 6 hours as needed for up to 7 days. Do not take over 4000mg acetaminophen daily. 30 tablet 0 magnesium oxide 400 (240 Mg) MG Take 1 tablet by mouth 2 times daily. Unknown Multiple Vitamin (multivitamin) tablet Take 1 tablet by mouth daily. Unknown Scheduled Meds: Allopurinol 100 mg Oral Daily apixaban 5 mg Oral Q12H Cyclobenzaprine 5 mg Oral BID Docusate 100 mg Oral BID Loratadine 10 mg Oral Daily multivitamin 1 tablet Oral Daily Pantoprazole 40 mg Oral Daily tolterodine 4 mg Oral Daily IV Infusions: Allergies Allergen Reactions Morphine Nausea and Vomiting Other Reaction(s): GI intolerance Other Reaction(s): Unknown Oxycodone Nausea and Vomiting Other Reaction(s): GI intolerance Other Reaction(s): Unknown Penicillins Hives No family history on file. Social History Tobacco Use Smoking status: Never Smokeless tobacco: Never Substance Use Topics Alcohol use: Never Drug use: Never Review of Systems: General ROS: Otherwise remainder of 14-point ROS is negative HEENT: No complaints of headache change in vision, nose or ear No sinus issues Cadiovascular: No chest pain, no diaphoresis, no palpitation Gastrointestinal: No complaints of dysphagia, nausea, vomiting. No change in stool pattern, consistency, or color. No epigastric pain Genitourinary: No complaints of dysuria, nocturia, polyuria, or hematuria. Pulmonary: No cough, no SOB, no wheezing Musculoskeletal: No arthralgias, muscle aches, or pains. Neurological: No weakness, numbness, or incoordination Integumentary: No rashes, itching. No hair or nail changes Psychiatric: No anxiety, depression, or sleep disturbance Hematologic / lymphatic: No easy bruising or bleeding. No enlarged lymph nodes. Allergic / immunologic: No hay fever/seasonal nasal congestion. No food/medication reactions Physical Examination: Vital Signs Temp: [98 F (36.7 C)-98.9 F (37.2 C)] 98.9 F (37.2 C) Pulse (Heart Rate): [64-116] 78 Resp Rate: [16-18] 18 BP: (112-150)/(57-78) 133/60 O2 Sat (%): [93 %-97 %] 94 % Weight: [117.3 kg (258 lb 11.2 oz)] 117.3 kg (258 lb 11.2 oz) No intake/output data recorded. No intake/output data recorded. BP 133/60 (BP Location: Left arm, BP Position: Sitting) Comment (BP Location): left forearm Pulse 78 Temp 98.9 F (37.2 C) (Oral) Resp 18 Ht 1.626 m (5' 4 ) Wt 117.3 kg (258 lb 11.2 oz) Comment: bed scale SpO2 94% BMI 44.41 kg/m Smoking Status Never General: Alert, oriented and cooperative. NAD Skin: Normal in appearance, texture, and temperature HEENT: Scalp normal. Pupils equally round,reactive to light and accommodation, sclera and conjunctiva normal. Nasal mucosa normal. Oral pharynx is normal without erythema or exudate. Tongue and gums are normal. Neck: Easily moveable without resistance, no abnormal adenopathy in the cervical or supraclavicular areas. Trachea is midline and thyroid gland is normal without masses. Carotid artery upstroke is normal bilaterally without bruits. CV: RRR, nl S1 and S2, no m/g/r Lungs: Lungs are clear to auscultation and percussion bilaterally No wheezing, no crackle. Normal effort. Abdomen: The abdomen is symmetrical without distention; bowel sounds are normal in quality and intensity in all areas. No masses or splenomegaly are noted; noo hepatomegaly Extremities: No cyanosis, clubbing, or edema are noted. Peripheral pulses in the femoral, popliteal, anterior tibial, dorsalis pedis,brachial, and radial areas are normal. Nodes: No palpable nodes in the cervical, supraclavicular, axillary or inguinal areas. Neurological: Cranial nerves II-XII are normal. Motor and sensory examination of the upper and lower extremities is normal. Gait and cerebellar function are also normal. Reflexes are normal and symmetrical bilaterally in both extremities. Relevant Data: Lab Results Component Value Date SODIUM 135 (L) 01/18/2024 POTASSIUM 3.5 01/18/2024 CHLORIDE 105 01/18/2024 CO2 27 01/18/2024 BUN 10 01/18/2024 CREATSERUM 0.60 (L) 01/18/2024 GLUCOSE 119 (H) 01/18/2024 Lab Results Component Value Date CALCIUM 8.4 01/18/2024 PHOSPHORUS 2.6 01/17/2024 Lab Results Component Value Date WBC 6.8 01/17/2024 HGB 9.8 (L) 01/17/2024 HCT 29.2 (L) 01/17/2024 PLATELET 279 01/17/2024 MCV 94.6 01/17/2024 Lab Results Component Value Date SPGRVTYUR 1.025 12/16/2023 GLUCOSEURINE NEGATIVE 12/16/2023 BILIRUBINURI NEGATIVE 12/16/2023 KETONESURINE NEGATIVE 12/16/2023 NITRITESURIN POSITIVE (A) 12/16/2023 LEUKOCESTUR SMALL (A) 12/16/2023 WBCURINE TOO NUMEROUS TO COUNT (A) 12/16/2023 RBCURINE 1 TO 5 12/16/2023 BACTERIAURIN 3+ (A) 12/16/2023 Lab Results Component Value Date CREATSERUM 0.60 (L) 01/18/2024 CREATSERUM 0.51 (L) 01/17/2024 CREATSERUM 0.70 01/13/2024 documented in this encounter [facility] 01-19-2024 Nurse Note AVS given by ALLY, all questions addressed and pt stated understanding. Assessment unchanged and no complaints. Patient taken to swing bed by [facility]. Per request of swing bed IV in right wrist left in flushed and locked with alcohol cap. Paperwork sent with transport and report given. [facility] 01-19-2024 Miscellaneous Notes AVS given by ALLY, all questions addressed and pt stated understanding. Assessment unchanged and no complaints. Patient taken to swing bed by [facility]. Per request of swing bed IV in right wrist left in flushed and locked with alcohol cap. Paperwork sent with transport and report given. Per patients request called and let contact Sonal daughter know her mother is transferring to swing bed. Called report to Nisha HERNANDEZ at [facility]. Transport set up. Problem: Adult Inpatient Plan of Care Goal: Plan of Care Review Outcome: Adequate for Discharge Goal: Patient-Specific Goal (Individualized) Outcome: Adequate for Discharge Goal: Absence of Hospital-Acquired Illness or Injury Outcome: Adequate for Discharge Goal: Optimal Comfort and Wellbeing Outcome: Adequate for Discharge Goal: Readiness for Transition of Care Outcome: Adequate for Discharge Problem: Skin Injury Risk Increased Goal: Skin Health and Integrity Outcome: Adequate for Discharge No change noted from previous assessment by this INTERIOR WALL ASSEMBLER unless otherwise detailed in coordinating flow sheets. Patient denies any needs at this time. Call light in reach. Talisha Damon CNP updated that patient can be discharged to Swing Bed today. Dr. Monte updated that auth came through and pt can be discharged to Swing bed today, No new orders at this time. Patient resting in bed. Assessment remains unchanged from previous. Call light is within reach. Pt resting in the chair. Assessment remains unchanged from previous. Pt's SPO2 is 84% on room air, so patient is put on 2L nasal cannula and SPO2 is now 90%. Call light is within reach. DEYSI dressing is no longer flashing, automobile service writer removes it per ortho note. Incision is CDI. Ice pack applied. Remains up in recliner. No change noted from previous assessment by this RN unless otherwise detailed in coordinating flow sheets. PRN ultram given per order for c/o left hip and torso pain. States her dinner order was called in by AUTOMOTIVE PROJECT ENGINEER. Denies additional needs at this time, call light in reach, recliner wheels locked. Problem: Adult Inpatient Plan of Care Goal: Plan of Care Review Outcome: Progressing Goal: Patient-Specific Goal (Individualized) Outcome: Progressing Goal: Absence of Hospital-Acquired Illness or Injury Outcome: Progressing Goal: Optimal Comfort and Wellbeing Outcome: Progressing Goal: Readiness for Transition of Care Outcome: Progressing Problem: Skin Injury Risk Increased Goal: Skin Health and Integrity Outcome: Progressing Remains up in recliner. No change noted from previous assessment by this RN unless otherwise detailed in coordinating flow sheets. Denies additional needs at this time, call light in reach, recliner wheels locked. Laying in recliner upon this RN arrival to patient room, resting quietly with eyes closed, respirations even and unlabored. Arouses easily to voice, appropriate to conversation. Shift assessment initiated, detailed in coordinating flow sheets. Denies additional needs at this time, call light in reach, recliner wheels locked. Problem: Adult Inpatient Plan of Care Goal: Plan of Care Review Outcome: Progressing Goal: Patient-Specific Goal (Individualized) Outcome: Progressing Goal: Absence of Hospital-Acquired Illness or Injury Outcome: Progressing Goal: Optimal Comfort and Wellbeing Outcome: Progressing Goal: Readiness for Transition of Care Outcome: Progressing Problem: Skin Injury Risk Increased Goal: Skin Health and Integrity Outcome: Progressing Patient's assessment remains unchanged from previous assessment this shift, any exceptions noted in flowsheets. Patient resting comfortably in chair, declines any needs at this time. Call light within reach,chair alarm active The top of the right foot is no longer red. Cuate has brisk cap refill on both lower extremities. An avril wrap was applied to Cuate right lower extremity from the toes to her knee. She is currently denying pain. She is watching TV and is pleasant. She is still awaiting insurance approval for the Swing Unit in [place]. Call haddad in hand. Assessment is complete and remains unchanged from previous at this time with any exceptions noted in the flowsheet. Patient denies further needs and is left with call light and personals in reach. Assessment is complete and remains unchanged from previous at this time with any exceptions noted in the flowsheet. Patient denies further needs and is left with call light and personals in reach. Resting in chair. Assessment unchanged from earlier. Call light in reach. Patient remains resting in recliner chair beside of bed. Voices no needs. Was medicated earlier for pain. Assessment unchanged from previous. Ice maintained to left hip. Call light in reach. Problem: Skin Injury Risk Increased Goal: Skin Health and Integrity Outcome: Progressing Intervention: Optimize Skin Protection Flowsheets Taken 01/16/2024 1634 by Elysia Green RN Activity Management: activity adjusted per tolerance Taken 01/16/2024 1600 by Olesya Lopez LPN Head of Bed (HOB) Positioning: (in chair) other (see comments) Taken 01/16/2024 0430 by Reynaldo Cool RN Pressure Reduction Techniques: frequent weight shift encouraged Pressure Reduction Devices: pressure-redistributing mattress utilized Skin Protection: incontinence pads utilized Intervention: Promote and Optimize Oral Intake Flowsheets (Taken 01/14/2024 1630) Oral Nutrition Promotion: rest periods promoted Nutrition Interventions: diet adjusted Afternoon assessment completed. No changes noted. Patient resting with no complaints. Call light and phone within reach. No change noted from previous assessment by this RN unless otherwise detailed in coordinating flow sheets. Patient denies any needs at this time. Assessment unchanged from prior unless otherwise charted. Patient resting in bed, call light within reach, Up In Chair, Patient denies any current needs at this time. Problem: Skin Injury Risk Increased Goal: Skin Health and Integrity Outcome: Progressing Intervention: Optimize Skin Protection Flowsheets Taken 01/15/2024 1616 by Elysia Green RN Activity Management: activity adjusted per tolerance Taken 01/15/2024 1600 by Olesya Lopez LPN Head of Bed (HOB) Positioning: HOB at 30-45 degrees Taken 01/14/2024 1001 by Jocelin Alegria, Student Nurse Pressure Reduction Techniques: frequent weight shift encouraged Pressure Reduction Devices: pressure-redistributing mattress utilized Skin Protection: incontinence pads utilized Intervention: Promote and Optimize Oral Intake Flowsheets (Taken 01/14/2024 1630) Oral Nutrition Promotion: rest periods promoted Nutrition Interventions: diet adjusted Afternoon assessment completed. No changes noted. Patient resting in the chair with no complaints. Call light and phone within reach. No change noted from previous assessment by this RN unless otherwise detailed in coordinating flow sheets. Patient denies any needs at this time. Pt assessment remains unchanged with any exceptions noted in flowsheets. Pt is resting in the recliner chair, respirations even and unlabored. Fresh ice pack applied to left hip. DEYSI dressing intact and flashing green. Pt c/o 7/10 pain to left hip with spasms. Tramadol given - see MAR. Pt denies any further needs at this time. Call light within reach. Pt assessment remains unchanged with any exceptions noted in flowsheets. Pt appears to be sleeping, respirations even and unlabored. Call light within reach. Pt assessment complete and documented in flowsheets. POC reviewed with pt. Pt is alert, respirations even and unlabored. No acute distress observed. Fresh ice pack applied to left hip. DEYSI dressing intact and flashing green. Pt c/o 02/25 pain to left hip. Tramadol given - see MAR. Pt denies any further needs at this time. Call light within reach. Problem: Skin Injury Risk Increased Goal: Skin Health and Integrity Outcome: Progressing Intervention: Optimize Skin Protection Flowsheets Taken 01/14/2024 1622 by Elysia Green RN Activity Management: activity adjusted per tolerance Taken 01/14/2024 1001 by Davina Blanchard Nurse Pressure Reduction Techniques: frequent weight shift encouraged Pressure Reduction Devices: pressure-redistributing mattress utilized Skin Protection: incontinence pads utilized Taken 01/13/2024 1300 by Davina Blanchard Nurse Head of Bed (HOB) Positioning: HOB at 60 degrees Intervention: Promote and Optimize Oral Intake Flowsheets (Taken 01/14/2024 1630) Oral Nutrition Promotion: rest periods promoted Nutrition Interventions: diet adjusted Afternoon assessment completed. No changes noted. Patient resting with no complaints. Call light and phone within reach. No change noted from previous assessment by this RN unless otherwise detailed in coordinating flow sheets. Patient denies any needs at this time. Pt resting in chair. Assessment remains unchanged from previous. Call light is within reach, SCDs are on. Pt resting in bed. Assessment remains unchanged from previous. Warp Hanger redresses avril wraps to BLE. Call light is within reach and bed alarm is on. Updates given to daughter Sonal. She denies any questions or concerns. No changes noted from previous assessment by this RN except what is detailed in coordinating flow sheets. Patient denies needs at this time. Call light is in reach. Patient denies any pain at this time. Patient denies need for pain medication and states she will call whenever she needs them. Med ULLOA at bedside. No changes noted from previous assessment by this RN except what is detailed in coordinating flow sheets. Patient denies needs at this time. Call light is in reach. Voicemail left for Dr. Monte regarding updates of patient's test per request. EKG showed sinus rhythm with premature atrial complexes and right bundle branch block. Troponin resulting at 10. Patient denies any chest pain/pressure at this time. Patient states I think it was indigestion, I get that a lot . Patient denies needs at this time. Call light is in reach. Warp Hanger reviews charting by Madeleine CANALES, automobile service writer agrees with charting. Patient complains of chest pain she describes it as pressure that is moving left. She states it feels like how it fells when I get indigestion . Dr. Monte notified. New orders received. Reassessment complete at this time and remains unchanged from previous. Patient states I slept really well last night. I think the Tramadol helped a lot. Patient rates pain 5/10 and 8/10 with spasms, movement. Patient DEYSI flashing green. Patient denies further needs and is left with call light and personals within reach. Reassessment complete at this time. Patient states Pain is much better. Patient denies any further needs and is left with call light and personals within reach. Assessment complete at this time with any exceptions noted in the flowsheets. Patient was snoring upon this nurse entering the room. Patient did not awaken to verbal stimulation. This nurse touched patients arm in an attempt to awaken her. Patient was still snoring. This nurse rubbed patient and she startled awake. Patient asked for Matador and was told she was not due for two more hours. Patient agreeable to wait. Patient denies further needs and is left with call light and personals within reach. Patient son's Mat at bedside at this time. This RN questioned if the patient would like PRN pain medication, patient states I'll call you when I want them . Denies needs at this time, call light within reach. No changes noted from previous assessment by this RN except what is detailed in coordinating flow sheets. Patient denies needs at this time. Call light is in reach. Bilaterally AVRIL wrap applied to lower legs with MARY Mcgee at this time per Randell AVILA. No changes noted from previous assessment by this RN except what is detailed in coordinating flow sheets. Patient denies needs at this time. Call light is in reach. Ave Mackey GOVERNMENT CLERK rounding. He discussed the quality of her bone from in the OR and the slight intraoperative fracture and the strict precautions including global and TDWB resulting ti the need for a SNF on discharge. Cuate extremely addiment I am not going to a [place] [facility] care facility. I'm going home . Ave explained after PT/OT evaluation today we might to had an additional conversation. Cuate looks to be upset over this visit at this time. The plan for nursing will be to now allow PT/OT to evaluate and clear explain options on discharge. Pt assessment remains unchanged with any exceptions noted in flowsheets. Pt is resting in bed, respirations even and unlabored. Fresh ice pack applied to left hip. DEYSI dressing intact and flashing green. Pt c/o 10/10 pain to left hip. Matador given - see MAR. Pt denies any further needs at this time. Call light within reach. Pt assessment remains unchanged with any exceptions noted in flowsheets. Pt is resting in bed, respirations even and unlabored. Fresh ice pack applied to left hip. DEYSI dressing intact and flashing green. Pt c/o 8/10 pain to left hip, Matador given - see MAR. Pt denies any further needs at this time. Call light within reach. Pt assessment complete and documented in flowsheets. POC reviewed with pt. Pt appears drowsy upon entering room, but arouses easily to voice and follows commands. Respirations even and unlabored. Fresh ice pack applied to left hip. DEYSI dressing intact and flashing green. Pt c/o 8/10 pain to left hip, pt declines pain medication intervention until next dose due. Pt denies any further needs at this time. Call light within reach. Pt nauseated at this time IS not done RN aware and will give medication for nausea and then instruct pt. Patient returned to floor via cart with PACU nurse. Patient reporting 10/10 pain to her left hip, left shoulder, and right knee. Requesting to be repositioned and for abductor pillow to be removed. I educated patient and family of the purpose of the abductor pillow as well as her hip precautions. Pt stating, I can't have my legs spread out like this, it is very painful and uncomfortable. This nurse removed the abductor pillow and repositioned her legs ensuring her left leg did not cross midline and placed a regular pillow between her legs. Pillows placed under her left arm to support her shoulder. Warm blankets applied as patient reporting she is cold. Patient requesting pain medication. However, she is also reporting nausea. Educated patient that narcotic pain medications could worsen her nausea. Pt verbalized understanding, however, requested the pain medication be given. Dilaudid and Zofran given. Emesis bag given. Reviewed clear liquid menu with patient. Patient requested lemon karuk soda. Soda given. Encouraged patient to try and rest. Family at the bedside. Safety education given. Call light within reach. Bed alarm set. Abductor pillow in place. Ice pack to Left hip POST OPERATIVE/PROCEDURE NOTE Cuate Goodman 83 y.o. female [id number] SURGEON Surgeons and Role: * Erik Heredia MD - Primary MOLD CUTTING MACHINE OPERATOR RENE Monique ANESTHESIOLOGIST FELLMONGERING MACHINE OPERATOR: JEFFREY Denny SURGICAL STAFF Loom Setter Fourdrinier: Shantell Flood, RN; Rebecca Baltazar, RN; Magdalene Gilbert, RN Nurse Practitioner: RENE Monique Pain Management Physician: Delores German Scrub Person: SALLY Kilgore; Zari Hayes RN PROCEDURE PERFORMED Procedure(s) (LRB): ARTHROPLASTY HIP TOTAL AL *STAT PT ON ARRIVAL* (Left) Left hip periarticular injection Intra-op interpretation of xray PRIMARY CLOSURE yes ANESTHESIA (type of) General ESTIMATED BLOOD LOSS 125 DRAINS none BLOOD PRODUCTS None PRE OPERATIVE DIAGNOSIS Osteoarthritis of left hip, unspecified osteoarthritis type [M16.12] POST OPERATIVE DIAGNOSIS Osteoarthritis of left hip, unspecified osteoarthritis type [M16.12] FINDINGS See op note CONDITION OF PATIENT Stable COMPLICATION Fx greater trochanter GRAFTS AND/OR IMPLANTS Implant Name Type Inv. Item Serial No. Dowel Sander Operator Lot No. LRB No. Used Action [place] Gription Acetabular Shell Sector 52mm OD [employer] [id number] Left 1 Implanted [place] ALTRX Polyethylene Acetabular Liner Neutral 36mm ID 52mm OD [employer] [id number] Left 1 Implanted Cementralizer Stem Centralizer 10.5mm Cemented [employer] [id number] Left 1 Implanted [place] Femoral Stem 12/14 Taper Cemented Size 5 STD 120mm [employer] [id number] Left 1 Implanted [place] LV 1x40 [id number] Left 1 Implanted [place] LV 1x40 [id number] Left 1 Implanted [place] R 1x40 [id number] Left 1 Implanted Biolox Delta Ceramic Femoral Head +1.5 36mm MERLYN 12/14 Taper [employer] [id number] Left [address], [employer] Corkscrew FT,Vented with 1.3mm White/blue and white/black suture tape AR[employer]X [id number] Left 1 Implanted Ti Trochanteric Reattachment Device w/Cables/Standard-Ster [employer] [id number] Left 1 Implanted SPECIMENS ID Type Source Tests Collected by Time Destination 1 : Left Femoral head Permanent TISSUE SURGICAL PATHOLOGY REQUEST Erik Heredia MD 01/11/[address] Mackey, ENTRY LEVEL ACCOUNT EXECUTIVE-GOVERNMENT CLERK January 11, 2024 5:48 PM 12/16/23 [id number] Information Source Information Source patient Contact Information Production Line Solderer Name Chelsea Menezes RN Living Environment Lives With alone Living Arrangement and Set Up house (main floor living) Provides Primary Care For no one Primary Care Provided By self Support System Other (Comment) (very limited help, expects garnddaughter to assist but that mmay depend on her schedule) Functional Status Patient's Functional Status Prior To This Admission? Independent Concerns With Patient Being Able To Care For Themselves At Discharge? Yes Who Is Patient's Primary Contact For Discharge Planning, Education And Care For Discharge? limited help Employment/Financial Employed? Retired Initial Discharge Planning DME (INVASIVE CARDIOVASCULAR TECHNOLOGIST) Walker (has FWW) CM met with patient this date to discuss post-surgical discharge plans. Patient states that return home with family assist. Patient has wheeled walker. Patient denies any other questions or needs at this time. CM to continue to follow and assist with discharge plans. documented in this encounter [facility] 01-19-2024 Nurse Note Per patients request called and let contact Sonal daughter know her mother is transferring to swing bed. [facility] 01-19-2024 Nurse Note Called report to Nisha HERNANDEZ at swing bed. Transport set up. [facility] 01-19-2024 Plan of care note Problem: Adult Inpatient Plan of Care Goal: Plan of Care Review Outcome: Adequate for Discharge Goal: Patient-Specific Goal (Individualized) Outcome: Adequate for Discharge Goal: Absence of Hospital-Acquired Illness or Injury Outcome: Adequate for Discharge Goal: Optimal Comfort and Wellbeing Outcome: Adequate for Discharge Goal: Readiness for Transition of Care Outcome: Adequate for Discharge Problem: Skin Injury Risk Increased Goal: Skin Health and Integrity Outcome: Adequate for Discharge [facility] 01-19-2024 Nurse Note No change noted from previous assessment by this INTERIOR WALL ASSEMBLER unless otherwise detailed in coordinating flow sheets. Patient denies any needs at this time. Call light in reach. T [facility] 01-19-2024 Hospital course Narrative Images from the original note were not included. Discharge Summary Name: Cuate Goodman Age: 83 y.o. Birthday: 1940 Admit Date: 01/11/2024 11:14 AM Discharge Date: 01/19/24 Discharge Time: midday Discharge Unit: Med/Surg Admission Information Admitting Physician: Erik Heredia MD Discharge Information Discharge Physician: Luis Monte MD Problem List Active Hospital Problems Diagnosis S/P total hip arthroplasty Resolved Hospital Problems No resolved problems to display. Brief Summary of Hospital Course for Discharge Summary: Patient is a week postop total hip arthroplasty. No new complaints. Pain is adequately controlled. Therapy is progressing. Rehab finally approved. She is medically stable for discharge today. Known right bundle branch block. Preop EKG at baseline. Known diastolic dysfunction. Director Of Services did clear her for surgery. She had a preoperative echocardiogram which is not available to me. Known B12 deficiency on oral replacement. History of DVT/PE on anticoagulation. Elevated blood pressure without formal diagnosis of hypertension. Not on any medication currently. Impaired fasting glucose. Watching diet only. Hemoglobin A1c preoperatively normal. 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 No recent signs of gout. Known GERD/gastritis. Symptoms are under good control. There are no side effects noted from the medication. she denies water brash, bitter or metallic taste, dysphagia, nausea, vomiting, hematemesis, melena, or black/tarry stools. Known urinary incontinence. Doing well on current medication. History of AAA. No symptoms. Echocardiogram performed preoperatively as part of cardiac clearance. General: No fever, chills, weight loss. HEENT: No sinus pain, ear pain, sore throat. Neck: No LAD. Lungs: No cough, sputum, pleuritic pain, hemoptysis, SOB. CV: No palpitation, orthopnea, PND, edema. GI: No abd pain, nausea, vomiting, diarrhea, constipation, melena, hematochezia. : No dysuria, frequency, hematuria. Skin: No rash or lesion. Neuro: No mental status changes, headache, focal neurologic complaints. Objective: Blood pressure 132/78, pulse 116, temperature 98.2 F (36.8 C), temperature source Temporal, resp. rate 16, height 1.626 m (5' 4 ), weight 98.4 kg (216 lb 14.9 oz), SpO2 97%. Results for orders placed or performed during the hospital encounter of 01/11/24 PROTIME-INR Result Value Ref Range PT 14.2 11.8 - 14.4 SEC INR 1.09 0.85 - 1.10 CBC, EDIF, PLATELET Result Value Ref Range WBC (WHITE BLOOD COUNT) 10.5 3.6 - 11.0 10*3/uL RBC 3.48 (L) 4.0 - 5.4 10*6/uL HEMOGLOBIN (HGB) 10.9 (L) 12.0 - 16.0 G/DL HEMATOCRIT (HCT) 33.3 (L) 36.0 - 48.0 % MEAN CELL VOLUME 95.7 80.0 - 100.0 FL Mean Cell HGB 31.4 26.0 - 35.0 PG MEAN CELL HGB CONCENTRATION 32.8 27.0 - 37.0 G/DL RBC DISTRIBUTION 14.3 11.5 - 14.5 % PLATELET COUNT 247 130 - 400 10*3/uL MEAN PLATELET VOLUME 8.2 7.4 - 11.0 FL DIFFERENTIAL TYPE AUTO DIFF % NEUTROPHILS 89.5 (H) 37.0 - 75.0 % LYMPHOCYTE 5.9 (L) 20.0 - 55.0 % MONOCYTE % 4.5 0.0 - 10.0 % EOSINOPHIL % 0.0 0.0 - 11.0 % BASOPHIL % 0.1 0.0 - 2.0 % Absolute Neutrophil Count 9.4 (H) 1.4 - 6.5 10*3/uL LYMPHOCYTES, ABSOLUTE 0.6 (L) 1.2 - 3.4 10*3/uL MONOCYTES, ABSOLUTE 0.5 0.0 - 0.7 10*3/uL ABSOLUTE EOSINOPHIL COUNT 0.0 0.0 - 0.7 10*3/uL ABSOLUTE BASOPHIL COUNT 0.0 0.0 - 0.2 10*3/uL BASIC METABOLIC PANEL Result Value Ref Range Glucose 179 (H) 70 - 100 MG/DL BUN 16 7 - 20 MG/DL CREATININE SERUM 0.70 0.70 - 1.20 MG/DL SODIUM 138 137 - 145 MMOL/L POTASSIUM 4.0 3.5 - 5.1 MMOL/L CHLORIDE 105 98 - 107 MMOL/L CARBON DIOXIDE (CO2) 24 22 - 30 MMOL/L ANION GAP 9 MMOL/L CALCIUM 9.1 8.4 - 10.2 MG/DL ESTIMATED GFR, NON AMER 85 ml/min/1.73sq.m ESTIMATED GFR, 103 ml/min/1.73sq.m GFR COMMENT Average GFR for 70+ years old = 75. CBC, EDIF, PLATELET Result Value Ref Range WBC (WHITE BLOOD COUNT) 10.0 3.6 - 11.0 10*3/uL RBC 3.31 (L) 4.0 - 5.4 10*6/uL HEMOGLOBIN (HGB) 10.6 (L) 12.0 - 16.0 G/DL HEMATOCRIT (HCT) 31.8 (L) 36.0 - 48.0 % MEAN CELL VOLUME 95.9 80.0 - 100.0 FL Mean Cell HGB 31.9 26.0 - 35.0 PG MEAN CELL HGB CONCENTRATION 33.2 27.0 - 37.0 G/DL RBC DISTRIBUTION 14.5 11.5 - 14.5 % PLATELET COUNT 228 130 - 400 10*3/uL MEAN PLATELET VOLUME 8.1 7.4 - 11.0 FL DIFFERENTIAL TYPE AUTO DIFF % NEUTROPHILS 85.8 (H) 37.0 - 75.0 % LYMPHOCYTE 5.9 (L) 20.0 - 55.0 % MONOCYTE % 8.3 0.0 - 10.0 % EOSINOPHIL % 0.0 0.0 - 11.0 % BASOPHIL % 0.0 0.0 - 2.0 % Absolute Neutrophil Count 8.6 (H) 1.4 - 6.5 10*3/uL LYMPHOCYTES, ABSOLUTE 0.6 (L) 1.2 - 3.4 10*3/uL MONOCYTES, ABSOLUTE 0.8 (H) 0.0 - 0.7 10*3/uL ABSOLUTE EOSINOPHIL COUNT 0.0 0.0 - 0.7 10*3/uL ABSOLUTE BASOPHIL COUNT 0.0 0.0 - 0.2 10*3/uL BASIC METABOLIC PANEL Result Value Ref Range Glucose 164 (H) 70 - 100 MG/DL BUN 19 7 - 20 MG/DL CREATININE SERUM 0.70 0.70 - 1.20 MG/DL SODIUM 137 137 - 145 MMOL/L POTASSIUM 4.2 3.5 - 5.1 MMOL/L CHLORIDE 107 98 - 107 MMOL/L CARBON DIOXIDE (CO2) 26 22 - 30 MMOL/L ANION GAP 4 MMOL/L CALCIUM 9.0 8.4 - 10.2 MG/DL ESTIMATED GFR, NON AMER 85 ml/min/1.73sq.m ESTIMATED GFR, 103 ml/min/1.73sq.m GFR COMMENT Average GFR for 70+ years old = 75. TROPONIN I, HIGH SENSITIVITY Result Value Ref Range TROPONIN I, HIGH SENSITIVITY 9 0 - 12 pg/mL TROPONIN I, HIGH SENSITIVITY Result Value Ref Range TROPONIN I, HIGH SENSITIVITY 10 0 - 12 pg/mL TROPONIN I, HIGH SENSITIVITY Result Value Ref Range TROPONIN I, HIGH SENSITIVITY 14 (H) 0 - 12 pg/mL CBC, EDIF, PLATELET Result Value Ref Range WBC (WHITE BLOOD COUNT) 9.9 3.6 - 11.0 10*3/uL RBC 3.35 (L) 4.0 - 5.4 10*6/uL HEMOGLOBIN (HGB) 10.5 (L) 12.0 - 16.0 G/DL HEMATOCRIT (HCT) 32.1 (L) 36.0 - 48.0 % MEAN CELL VOLUME 96.0 80.0 - 100.0 FL Mean Cell HGB 31.4 26.0 - 35.0 PG MEAN CELL HGB CONCENTRATION 32.8 27.0 - 37.0 G/DL RBC DISTRIBUTION 14.6 (H) 11.5 - 14.5 % PLATELET COUNT 226 130 - 400 10*3/uL MEAN PLATELET VOLUME 8.4 7.4 - 11.0 FL DIFFERENTIAL TYPE AUTO DIFF % NEUTROPHILS 77.4 (H) 37.0 - 75.0 % LYMPHOCYTE 11.0 (L) 20.0 - 55.0 % MONOCYTE % 10.8 (H) 0.0 - 10.0 % EOSINOPHIL % 0.5 0.0 - 11.0 % BASOPHIL % 0.3 0.0 - 2.0 % Absolute Neutrophil Count 7.6 (H) 1.4 - 6.5 10*3/uL LYMPHOCYTES, ABSOLUTE 1.1 (L) 1.2 - 3.4 10*3/uL MONOCYTES, ABSOLUTE 1.1 (H) 0.0 - 0.7 10*3/uL ABSOLUTE EOSINOPHIL COUNT 0.1 0.0 - 0.7 10*3/uL ABSOLUTE BASOPHIL COUNT 0.0 0.0 - 0.2 10*3/uL CBC, EDIF, PLATELET Result Value Ref Range WBC (WHITE BLOOD COUNT) 6.8 3.6 - 11.0 10*3/uL RBC 3.09 (L) 4.0 - 5.4 10*6/uL HEMOGLOBIN (HGB) 9.8 (L) 12.0 - 16.0 G/DL HEMATOCRIT (HCT) 29.2 (L) 36.0 - 48.0 % MEAN CELL VOLUME 94.6 80.0 - 100.0 FL Mean Cell HGB 31.8 26.0 - 35.0 PG MEAN CELL HGB CONCENTRATION 33.6 27.0 - 37.0 G/DL RBC DISTRIBUTION 13.9 11.5 - 14.5 % PLATELET COUNT 279 130 - 400 10*3/uL MEAN PLATELET VOLUME 7.9 7.4 - 11.0 FL DIFFERENTIAL TYPE AUTO DIFF % NEUTROPHILS 69.1 37.0 - 75.0 % LYMPHOCYTE 16.5 (L) 20.0 - 55.0 % MONOCYTE % 11.9 (H) 0.0 - 10.0 % EOSINOPHIL % 1.9 0.0 - 11.0 % BASOPHIL % 0.6 0.0 - 2.0 % Absolute Neutrophil Count 4.7 1.4 - 6.5 10*3/uL LYMPHOCYTES, ABSOLUTE 1.1 (L) 1.2 - 3.4 10*3/uL MONOCYTES, ABSOLUTE 0.8 (H) 0.0 - 0.7 10*3/uL ABSOLUTE EOSINOPHIL COUNT 0.1 0.0 - 0.7 10*3/uL ABSOLUTE BASOPHIL COUNT 0.0 0.0 - 0.2 10*3/uL RENAL FUNCTION PANEL Result Value Ref Range Glucose 106 (H) 70 - 100 MG/DL BUN 10 7 - 20 MG/DL CREATININE SERUM 0.51 (L) 0.70 - 1.20 MG/DL SODIUM 135 (L) 137 - 145 MMOL/L POTASSIUM 3.3 (L) 3.5 - 5.1 MMOL/L CHLORIDE 105 98 - 107 MMOL/L CARBON DIOXIDE (CO2) 29 22 - 30 MMOL/L Albumin 2.6 (L) 3.5 - 5.0 G/dl CALCIUM 8.2 (L) 8.4 - 10.2 MG/DL PHOSPHORUS 2.6 2.5 - 4.5 MG/DL ESTIMATED GFR, NON AMER 123 ml/min/1.73sq.m ESTIMATED GFR, 149 ml/min/1.73sq.m GFR COMMENT Average GFR for 70+ years old = 75. BASIC METABOLIC PANEL Result Value Ref Range Glucose 119 (H) 70 - 100 MG/DL BUN 10 7 - 20 MG/DL CREATININE SERUM 0.60 (L) 0.70 - 1.20 MG/DL SODIUM 135 (L) 137 - 145 MMOL/L POTASSIUM 3.5 3.5 - 5.1 MMOL/L CHLORIDE 105 98 - 107 MMOL/L CARBON DIOXIDE (CO2) 27 22 - 30 MMOL/L ANION GAP 3 MMOL/L CALCIUM 8.4 8.4 - 10.2 MG/DL ESTIMATED GFR, NON AMER 102 ml/min/1.73sq.m ESTIMATED GFR, 123 ml/min/1.73sq.m GFR COMMENT Average GFR for 70+ years old = 75. REPEAT ABO/RH (D) TYPING Result Value Ref Range ABO/RH(D) O POSITIVE SURGICAL PATHOLOGY REQUEST Result Value Ref Range SURG PATH RESULT Surgical Final Report Patient Name: CUATE GOODMAN [facility]. Rec. #: [id number] Physician: ERIK HEREDIA Specimen(s) Received Left femoral head Clinical / Pre-Operative Diagnosis Osteoarthritis of left hip unspecified osteoarthritis type Post-Operative Diagnosis Not provided Surgical Procedure Arthroplasty hip total latera approach Diagnosis: Left femoral head, Excision: -Consistent with degenerative joint disease Electronically Signed [facility]/01/13/2024 Khoa Vieyra DO Gross Description: The specimen is received in formalin, and labeled left gary stacy, Cuate Goodman and date of 1940. The specimen consists of a femoral head and neck measuring 5.5 x 5 x 5 cm with articular cartilage degeneration. Sectioning reveals unremarkable bone. Hip Hop Artist sections are submitted in one cassette and placed in decalcification solution prior to processing. Billing Fee Code(s) A: 64057, 35406 HEENT: NC/AT, PERRLA, EOMI, fundi benign, external ears normal, OP normal. Neck: No LAD/thyromegaly. No JVD/bruit. Lungs: Clear to auscultation bilaterally. No wheezes, rales, ronchi. Heart: RRR. No S3/S4. Abdomen: Soft, NT/ND, normal bowel sounds, no HSM, no bruits. Extremities: No clubbing, cyanosis, edema. Normal pulses. Neurologic: CN II-XII intact. Strength/DTR's/sensation symmetric. Cerebellar function normal. Skin: No rash or suspicious lesions. Musculoskeletal: No edema, redness, warmth, deformities. Psychiatric: Alert and oriented. Affect and mood normal. Assessment and Plan: Postop day 8 total hip arthroplasty - medically stable for discharge. Continue rehab in swing bed. Right bundle branch block - no issues during hospitalization. History of diastolic dysfunction - euvolemic currently. B12 deficiency - resume oral replacement as soon as discharged. History of DVT/PE - full anticoagulation started. Elevated blood pressure without diagnosis of hypertension - monitor blood pressures closely. Impaired fasting glucose - carb controlled diet and basic metabolic panel in the morning. No need for sliding scale insulin since hemoglobin A1c is normal. Elevated uric acid - continue allopurinol and monitor clinically for gout. GERD - continue proton pump inhibitor. Urinary incontinence - continue home medications. AAA - no acute management needed during hospitalization. Hypokalemia - resolved. 35 minutes total time. Luis Monte MD 01/19/2024 Brief Summary of Consults for Discharge Summary: Brief Summary of Procedures and Imaging for Discharge Summary: Summary of last selected lab results and date obtained: Lab Results Component Value Date WBC 6.8 01/17/2024 HGB 9.8 (L) 01/17/2024 HCT 29.2 (L) 01/17/2024 PLATELET 279 01/17/2024 MCV 94.6 01/17/2024 Lab Results Component Value Date SODIUM 135 (L) 01/18/2024 POTASSIUM 3.5 01/18/2024 CHLORIDE 105 01/18/2024 CO2 27 01/18/2024 BUN 10 01/18/2024 CREATSERUM 0.60 (L) 01/18/2024 GLUCOSE 119 (H) 01/18/2024 Lab Results Component Value Date ALT 16 12/16/2023 AST 25 12/16/2023 ALKPHOS 89 12/16/2023 BILITOTAL 0.3 12/16/2023 Brief Summary of Labs for Discharge Summary: No discharge procedures on file. Current Outpatient Meds: Medication List for when you go home START taking these medications Morning Afternoon Evening Bedtime As Needed Acetaminophen 325 MG tablet Take 2 tablets by mouth every 4 hours as needed for Mild Pain. Commonly known as: TYLENOL Replaces: TYLENOL 8 HOUR ARTHRITIS PAIN PO Docusate 100 MG CAPS Take 1 capsule by mouth 2 times daily. Commonly known as: COLACE Last time this was given: 100 mg on January 19, 2024 9:05 AM hydroCODone-acetaminophen 5-325 MG TABS Take 1-2 tablets by mouth every 6 hours as needed for up to 7 days. Do not take over 4000mg acetaminophen daily. Commonly known as: NORCO For diagnoses: Acute postoperative pain of left hip Last time this was given: 2 tablets on January 19, 2024 10:33 AM CHANGE how you take these medications Morning Afternoon Evening Bedtime As Needed * Eliquis 5 MG TABS Take 1 tablet by mouth every 12 hours. What changed: Another medication with the same name was added. Make sure you understand how and when to take each. Last time this was given: Ask your nurse or doctor Generic drug: apixaban * Eliquis 2.5 MG TABS Take 1 tablet by mouth every 12 hours for 5 days. Then resume 5mg dose per pre-op routine What changed: You were already taking a medication with the same name, and this prescription was added. Make sure you understand how and when to take each. Last time this was given: Ask your nurse or doctor Generic drug: apixaban * The same medication is listed twice. Please discuss with your provider. CONTINUE taking these medications Morning Afternoon Evening Bedtime As Needed Allopurinol 100 MG TABS Take 1 tablet by mouth daily. Commonly known as: ZYLOPRIM Last time this was given: 100 mg on January 19, 2024 9:02 AM cyanocobalamin 1000 MCG TABS Take 5 tablets by mouth. Commonly known as: VITAMIN B12 magnesium oxide 400 (240 Mg) MG Take 1 tablet by mouth 2 times daily. Commonly known as: MAG-OX multivitamin TABS Take 1 tablet by mouth daily. omeprazole [address] capsule 1 capsule daily. qam Commonly known as: PRILOSEC tolterodine 4 MG cap XR Take 1 capsule by mouth daily. Commonly known as: DETROL LA Last time this was given: 4 mg on January 19, 2024 9:03 AM Vitamin D-3 25 MCG (1000 UT) CAPS Take by mouth. STOP taking these medications Chlorhexidine Gluconate 4 % SOLN Commonly known as: HIBICLENS Mupirocin 2 % ointment Commonly known as: BACTROBAN TYLENOL 8 HOUR ARTHRITIS PAIN PO Replaced by: Acetaminophen 325 MG tablet Notes to patient: STOP ASK your doctor about these medications Morning Afternoon Evening Bedtime As Needed cephALEXin 500 MG CAPS Take 1 capsule by mouth every 8 hours for 7 days. Commonly known as: KEFLEX Ask about: Should I take this medication? Follow-up: [place] [id number] Follow up [facility] Upcoming Appointments (up to five)-Some appointments for Medical Center outpatient clinics or diagnostic testing locations are not displayed below Provider Department Dept Phone 02/02/2024 11:30 AM Paige Damon [facility] [phone] documented in this encounter [facility] 01-19-2024 Nurse Note Talisha Damon CNP updated that patient can be discharged to Swing Bed today. [facility] 01-19-[address] Monte updated that auth came through and pt can be discharged to Swing bed today, No new orders at this time. [facility] 01-19-2024 History of Presen t illness Narrative Patient approved for Swing bed, nurse updated 01/18/24 0820 Time In/Out Time In 0820 Time Out 0930 Total Visit Time 70 minutes Subjective RN Approved Intervention as tolerated Existing Precautions/Restrictions fall;hip;weight bearing (TTWB on L LE, no active hip abd, global hip precautions, abd pillow) Subjective Reports Pt sitting in bedside chair upon arrival this session. Pt agreeable for therapy and pt states pain at 7-8/10 in L hip. Cognitive Status Examination Orientation Status (Cognition) oriented x 4 Level of Consciousness alert;cooperative Able to Follow Commands (Communication) WFL Personal Safety and Judgment intact General Pain Documentation (Adult, OB, Peds) Presence of Pain reports pain/discomfort Pain Location hip, left Pain Management Interventions cold application;ambulated Select Pain Scale (7-8/10) Objective Therapeutic Interventions Pt sitting in bedside chair upon arrival this session. Pt agreeable for therapy and began with preparing pt for gait training. Pt then completed STS to FWW, Christina x1 with lots of VCs for proper hand/foot placement to manage TTWB on L LE. Pt then ambulated approx 10ft with slow and steady gait using swing to pattern with forward flexed posture and TTWB on L LE. Pt then able to turn and pivot in bathroom before transferring to seated positoin on commode with use of grab bars. INVASIVE CARDIOVASCULAR TECHNOLOGIST assisted pt with removing breif and pts gown noted to be wet. AUTOMOTIVE PROJECT ENGINEER called in and assisted pt with gown change. Pt able to void and then pt compelted STS to FWW, Christina x1 and pt able to provide self pericare with this INVASIVE CARDIOVASCULAR TECHNOLOGIST providing support with no major LOB noted. Pt then ambulated back into room for approx 10ft and pt states beginning to feel a little dizzy and asking to have bedside chair placed behind pt and then pt transfered to sitting in bedside chair. This INVASIVE CARDIOVASCULAR TECHNOLOGIST supporting L LE while reclining chair and then pt able to slide self back in chair with UEs. MaxA x2 for repositoining pt all the way to back of chair. Pt then completed B ankle pumps x10 reps and then additional exercises on R LE including QS, hip abd, heel slides, and SLRs x10-12 reps each. Pt remained sitting in bedside chair with LEs elevated, ice pack applied to L hip, SCDs in place, and pillow placed between pts LEs to follow global hip precautions at end of therapy session. Transfer Skill: Sit To Stand, Rehab Eval [place] (Sit-Stand Transfers) minimum assist (75% patient effort) Physical Assist/Nonphysical Assist: Sit/Stand 1 person assist Weight-Bearing Restrictions: Sit/Stand toe touch weight-bearing Assistive Device For Transfer: Sit/Stand 2 wheeled walker Gait Skills, PT Eval Level of [place]: Gait minimum assist (75% patients effort) Physical Assist/Nonphysical Assist: Gait 1 person assist Weight-Bearing Restrictions: Gait toe touch weight-bearing Assistive Device For Transfer: Gait 2 wheeled walker Gait Distance (10ft x2) Gait Analysis, PT Eval Gait Pattern Used swing-to gait Stair Negotiation [place] Level: Stair Negotiation unable to assess Plan Plan for next visit Cont per POC Maintain frequency yes 01/17/24 1616 Time In/Out Time In 1616 Time Out 1654 Total Visit Time 38 minutes Subjective RN Approved Intervention as tolerated Existing Precautions/Restrictions fall;hip;weight bearing (TTWB on L LE, no active hip abd, Global hip precautions, abd pillow) Subjective Reports Pt sitting in bedside chair upon arrival this session. Pt agreeable for therapy and pt states having some pain in L ribcage area. Pt did not rate pain. Cognitive Status Examination Orientation Status (Cognition) oriented x 4 Level of Consciousness alert;cooperative Able to Follow Commands (Communication) WFL Personal Safety and Judgment intact General Pain Documentation (Adult, OB, Peds) Presence of Pain reports pain/discomfort Pain Location rib cage (L side) Pain Management Interventions activity minimized Select Pain Scale (Pt did not rate pain) Objective Therapeutic Interventions Pt sitting in bedside chair upon arrival this session. Pt agreeable for therapy and states that she would like to have muscle relaxer as she feels that she may have pulled a muscle in her rib area on L side. Nurse Merry notified at this time. Pt requesting to not get up and ambulate at this time stating that she has been up alot today and does not want to overdo it. Pt agreeable for seated exercises at this time. Pt completed B ankle pumps and then additional exercises on R LE including QS, heel slides, hip abd, and SLRs x10-12 reps each. Nurse in at this time to adminster medication and this INVASIVE CARDIOVASCULAR TECHNOLOGIST assisted pt with placing ice pack on L hip, bracing L LE with blanket roll, and providing warm blankets at end of therapy session. Pt remained sitting up in bedside chair with call light left within reach. Plan Plan for next visit Cont per POC Maintain frequency yes Spoke with family, Sonal about the pending auth situation and told her we would update her once we knew more. Patient updated that still waiting on insurance auth to transfer to [facility], this nurse informed that social work has reached out to [facility] to see progress on auth. Will update patient when auth comes through 01/17/24 0830 Time In/Out Time In 0830 Time Out 1000 Total Visit Time 90 minutes Subjective RN Approved Intervention as tolerated Existing Precautions/Restrictions fall;hip;weight bearing (TTWB on L LE, global hip prec, no active hip abd, abd pillow) Subjective Reports Pt sitting in bedside chair upon arrival this session. Pt agreeable for therapy and pt denies any pain at rest. Cognitive Status Examination Orientation Status (Cognition) oriented x 4 Level of Consciousness alert;cooperative Able to Follow Commands (Communication) WNL Personal Safety and Judgment intact General Pain Documentation (Adult, OB, Peds) Presence of Pain reports pain/discomfort Pain Location hip, left;foot, right Pain Management Interventions ambulated;cold application Select Pain Scale (Pt states no pain at rest, more pain in R foot when WBing, pt did not rate pain) Objective Therapeutic Interventions Pt sitting in bedside chair upon arrival this session. Pt agreeable for therapy and states no pain while at rest. Began with prearping pt for gait training. Pt then completed STS to FWW, Christina x1 to initiate transfer. Pt then ambulated approx 25ft total with slow swing to pattern with min verbal cues for proper sequencing with TTWB on L LE. Pt required 2 standing rest breaks d/t increased fatigue in UEs. Pt then states that she was beginning to feel dizzy and needed to sit down. Additional staff bringing bedside chair behind pt and then pt transfered to seated position in chair. BP taken with normal reading of 130s/70s. Pt states symptoms subsiding while resting in bedside chair. MaxA x2 for repositioning pt further back into chair. Pt then completed ankle pumps on B feet x10 reps. Pt then completed additional exercises on R LE including QS, heel slides, hip abd, and SLRs x10-12 reps each. Pt then states that she needs to use the bathroom. Pt then completed another STS to FWW, Christina x1 and pt ambulated approx 10ft with TTWB on L LE. Pt able to turn and pivot before transferring to seated position on BSC. Pt required asssiatnce with removing brief before sitting down on commode. Pt able to have a BM and void at this time. Additional staff in to assist pt with pt standing to FWW with Christina x1 and AUTOMOTIVE PROJECT ENGINEER providing pt with pericare and placing new brief and purewick catheter. Pt then ambulated approx 8ft out of bathroom and states that she would need the chair placed behind her d/t fatigue. Chair placed behind pt and pt transfered to seated position. MAxA x2 for repositoining pt further back into chair. SCD placed on L LE and ice pack applied to L hip.Diller rolled placed on lateral side of L LE to promote proper positoining to follow global hip precautions. Pt states feeling very comfortable in this position. Call light left within reach at end of therapy session. Transfer Skill: Sit To Stand, Rehab Eval [place] (Sit-Stand Transfers) minimum assist (75% patient effort) Physical Assist/Nonphysical Assist: Sit/Stand 1 person assist Weight-Bearing Restrictions: Sit/Stand toe touch weight-bearing Assistive Device For Transfer: Sit/Stand 2 wheeled walker Gait Skills, PT Eval Level of [place]: Gait minimum assist (75% patients effort) Physical Assist/Nonphysical Assist: Gait 1 person assist Weight-Bearing Restrictions: Gait toe touch weight-bearing Assistive Device For Transfer: Gait 2 wheeled walker Gait Distance (25ft, 10ft, 8ft) Stair Negotiation [place] Level: Stair Negotiation unable to assess Plan Plan for next visit Cont per POC Maintain frequency yes 01/16/24 0939 Time In/Out Time In 0939 Time Out 1028 Total Visit Time 49 minutes Subjective RN Approved Intervention as tolerated Existing Precautions/Restrictions fall;hip (hip global precautions) Subjective Reports Patient reporting she was able to get u p and walk to bathroom last night with assistance. Patient is kind and agreeable to PT Cognitive Status Examination Orientation Status (Cognition) oriented x 4 Level of Consciousness alert;cooperative Able to Follow Commands (Communication) WNL Personal Safety and Judgment intact General Pain Documentation (Adult, OB, Peds) Presence of Pain reports pain/discomfort Pain Location hip, left;foot, right Select Pain Scale DVPRS (Defense and Veterans Pain Rating Scale) (Adult-Cognitively Intact) DVPRS (Defense and Veterans Pain Rating Scale) DVPRS: Rest 5- moderate pain DVPRS: Activity 7- severe pain Objective Therapeutic Interventions Patient completes sit to stand from bedside chair with Mod A provided, incr time and effort needed to complete with incr BUE assist on armrests. Patient stands for 1 minute with flexed posture, mod vc given for TTWB only on LLE, min VC given for safe hand placement on FWW and for improved posture. Patient reporting incr pain on top of R foot and reports she is not able to attempt walking due to the pain and requests to be seated. Patient refusing to attempt standing or walking again due to pain in R foot. Patient requires mod A x 2 to scoot back into chair for proper positioning. Completes L ankle pumps x 20 reps + RLE ther ex: heel slides, QS, SAQ hip abd x 15-20 reps each, min vc for form. Patient positioned with BLE elevated, SCDs placed on each leg, call light in reach, cold pack applied to LLE for decr pain. Transfer Skill: Sit To Stand, Rehab Eval [place] (Sit-Stand Transfers) moderate assist (50% patient effort) Physical Assist/Nonphysical Assist: Sit/Stand 1 person assist Weight-Bearing Restrictions: Sit/Stand toe touch weight-bearing Assistive Device For Transfer: Sit/Stand 2 wheeled walker Gait Skills, PT Eval Level of [place]: Gait (Patient refuses to attempt due to incr pain in R foot) Plan Plan for next visit Plan for transfers, gait, ther ex Maintain frequency yes 01/15/24 1310 Time In/Out Time In 1310 Time Out 1340 Total Visit Time 30 minutes Total Treatment Time (skilled, billable minutes) 30 minutes OT Therapy Completed Yes OT Therapies Still to Complete 4 Subjective RN Approved Intervention as tolerated Existing Precautions/Restrictions fall;hip;weight bearing (global hip precautions, TTWB, no active hip abduction) Subjective Reports patient seated up in recliner, agreeable to therapy session Cognitive Status Examination Orientation Status (Cognition) oriented x 4 Level of Consciousness alert Able to Follow Commands (Communication) WNL Personal Safety and Judgment intact Hearing no gross deficits noted Speech no gross deficits noted Vision Screen Currently wearing corrective lenses Reading only Objective Therapeutic Exercise Pt seated up in chair, reporting incresaed fatigue and stating she was finally able to get comfortable . Pt reports that B shoulders have caused increased pain due to using walker. OT provided patient with HEP regarding AAROM stretches to decrease pain. Pt completed 1x12 AAROM shoulder flexion, abductions, and diagonal. Pt completed 1x10 distal strengthening with 2lb weight, initial demo then good carryover. Pt reports understanding of importance of stretching muscles while both seated and supine in bed to decrease pain. Pt declined any cold or heat modality. OT offered to assist with ADL session, pt declining at this time. Increased time spent educating patient on techniques to maintain hip precautions and using adaptive equipment. Pt declining to practice LB dressing stating that she plans to only wear nightgowns and does not wear socks. Pt currently has AVRIL warps on legs due to declining JOSAFAT hose. Pt left in chair with all needs met and legs elevated Bathing session completed with OT (Row Shared with Nursing- Document only if task was physically completed. Not an assumed value.) Bath Care Patient/family refused Reason for Bath Care Refusal alternative time preferred Lower Body Dressing Level of [place] (declned to complete) Clinical Impression Co-evaluation/co-treatment performed? No simultaneous skilled care performed Patient Instruction/Education comments continued education to ensure safe ADL participation and functional transfers; HEP Therapy Frequency 6 times a week (frequency change due to patient making good progress towards goals and awaiting placement for rehab prior to dc home) Therapist Information License # [id number] 01/15/24 0955 Time In/Out Time In 0955 Time Out 1054 Total Visit Time 59 minutes Subjective RN Approved Intervention as tolerated Existing Precautions/Restrictions fall;hip Subjective Reports patient reporting she feels okay now at rest but whenever she moves she has incr pain and spasms in her left leg. patient is kind and agreeable to PT Cognitive Status Examination Orientation Status (Cognition) oriented x 4 Level of Consciousness alert;cooperative Able to Follow Commands (Communication) WNL Personal Safety and Judgment intact General Pain Documentation (Adult, OB, Peds) Presence of Pain reports pain/discomfort Pain Location hip, left Pain Management Interventions positioning;cold application Select Pain Scale DVPRS (Defense and Veterans Pain Rating Scale) (Adult-Cognitively Intact) DVPRS (Defense and Veterans Pain Rating Scale) DVPRS: Rest 1- mild pain DVPRS: Activity 8- severe pain Objective Therapeutic Interventions Patient completes STS from bedside chair with Min A provided while instructed to follow TTWB status on LLE, requires incr BUE assist on armrests and incr time to complete. Patient ambulates 5 ft in room with Min A provided using FWW for support, TTWB on LLE, incr BUE WB on FWW, significantly slow gait speed with standing rest breaks needed due to fatigue. Pt completes additional STS from bedside chair for additional functional strengthening. Patient sit into chair but requires Mod A x 2 to scoot backward into chair for proper positioning. Patient completes supine ther ex including bilateral AP x 20 reps + RLE ther ex including QS, SAQ, heel slides, hip abd x 15-20 reps each with min vc for form. Patient instructed to perform at least 2x/day for incr strength, patient verbalizes understanding Communication Communicated safe sequencing during transfers/gait, and instructed to perform HEP 2x/day for incr strength Transfer Skill: Sit To Stand, Rehab Eval [place] (Sit-Stand Transfers) minimum assist (75% patient effort) Physical Assist/Nonphysical Assist: Sit/Stand 1 person assist Weight-Bearing Restrictions: Sit/Stand toe touch weight-bearing Assistive Device For Transfer: Sit/Stand 2 wheeled walker Gait Skills, PT Eval Level of [place]: Gait minimum assist (75% patients effort) Physical Assist/Nonphysical Assist: Gait 1 person assist Weight-Bearing Restrictions: Gait toe touch weight-bearing Assistive Device For Transfer: Gait 2 wheeled walker Gait Distance 5 feet Gait Analysis, PT Eval Gait Pattern Used other (see comments) (TTWB on LLE) Plan Plan for next visit Plan for bed mobility, transfers, gait, ther ex, education on global hip precautions Maintain frequency yes FITNESS DIRECTOR spoke with [facility]. Insurance authorization still pending. FITNESS DIRECTOR met with patient and son, questions answered. FITNESS DIRECTOR to follow. 01/14/24 0830 Time In/Out Time In 0830 Time Out 1015 Total Visit Time 105 minutes Subjective RN Approved Intervention as tolerated Existing Precautions/Restrictions fall;hip;weight bearing (TTWB on L LE, Global hip precautions no active hip abd, ABD pillow) Subjective Reports Pt lying in bed upon arrival this session. Pt agreeable for therapy and pt states pain in L hip at 8/10, nurse aware and in to adminster medications. Cognitive Status Examination Orientation Status (Cognition) oriented x 4 Level of Consciousness alert;cooperative Able to Follow Commands (Communication) WFL Personal Safety and Judgment intact General Pain Documentation (Adult, OB, Peds) Presence of Pain reports pain/discomfort Pain Location hip, left Pain Management Interventions cold application;ambulated Select Pain Scale (8/10) Objective Therapeutic Interventions Pt sitting in bedside chair upon arrival this session. Pt agreeable for therapy and pt states that she moved to bedside chair last night and pt was able to sleep better in chair. Began with preparing pt for standing and gait training. Pt began with STS to FWW, Christina x1 and then pt stood for approx 1-2 minutes to acclimate to upright position. Pt then began working on gait with TTWB on L LE and then pt stating that she would like to go into bathroom and try to sit on commode. Pt ambulated apprx 10 ft with Christina x1 and VCs for proper sequencing with pt managing TTWB on L LE. Pt required multiple short standing rest breaks d/t UE fatigue. Pt able to turn and pivot before sitting down on commode with BSC platform across toilet. Pt with extended time on commode with AUTOMOTIVE PROJECT ENGINEER providing pt with changing purewick and changing gown. Pt able to void and then pt completed another STS to FWW, Christina x1 and pt ambulated back into room for approx 10ft with slow swing to pattern with TTWB on L LE and then pt transfered to sitting in bedside chair. MaxA x2 for repositioning pt further back into chair with LEs elevated. Pt then completed ankle pumps and additional exercises on R LE only including QS, hip abd, SAQs, and heel slides x10-15 reps each. Continued education on all global hip precautions and WBing restrictions with pt demonstrating a good understanding. Neck roll provided for pt and roll placed on lateral side of L LE to promote proper positioning to follow global hip precautions. SCDs on, ice pack applied to L hip, and call light left within reach at end of therapy sessoin. Transfer Skill: Sit To Stand, Rehab Eval [place] (Sit-Stand Transfers) minimum assist (75% patient effort) Physical Assist/Nonphysical Assist: Sit/Stand 1 person assist Weight-Bearing Restrictions: Sit/Stand toe touch weight-bearing Assistive Device For Transfer: Sit/Stand 2 wheeled walker Gait Skills, PT Eval Level of [place]: Gait minimum assist (75% patients effort) Physical Assist/Nonphysical Assist: Gait 1 person assist Weight-Bearing Restrictions: Gait toe touch weight-bearing Assistive Device For Transfer: Gait 2 wheeled walker Gait Distance (10ft x2) Gait Analysis, PT Eval Gait Pattern Used swing-to gait Stair Negotiation [place] Level: Stair Negotiation unable to assess Plan Plan for next visit Cont with POC Maintain frequency yes 01/13/24 1010 Time In/Out Time In 1010 Time Out 1110 Total Visit Time 60 minutes Subjective RN Approved Intervention as tolerated Existing Precautions/Restrictions fall;hip;weight bearing (TTWB on L LE, Global hip precautions, no active hip abd, ABD pillow) Subjective Reports Pt lying in bed upon arrival this session. Pt agreeable for therapy and pt states pain at 8/10 in L hip at rest. Pt states she continues to have muscle spasms in L LE near hip area. Cognitive Status Examination Orientation Status (Cognition) oriented x 4 Level of Consciousness alert;cooperative Able to Follow Commands (Communication) WFL Personal Safety and Judgment intact General Pain Documentation (Adult, OB, Peds) Presence of Pain reports pain/discomfort Pain Location hip, left Pain Management Interventions activity minimized;cold application Select Pain Scale (8/10 at rest in L hip, 0/10 pain after transfering to bedside chair) Objective Therapeutic Interventions Pt lying in bed upon arrival this session. Pt agreeable for therapy and began with preparing pt for sitting up at EOB. Pt then completed bed mobility transfer from lying supine to sitting up at EOB with Christina x2 with pt using leg structural designer on L LE with good technique demonstrated throughout with very minimal pain during transfer. Pt then completed STS to FWW, Christina x2 and pt able to ambulate approx 5ft with slow swing to pattern with min verbal cues for proper sequencing with TTWB on L LE with no LOB noted. Pt able to turn and pivot on R LE with good technique, VCs for proper hand placment to reach back for arms of chair to assist with loweing self to seated position. Pt able to repositoin self further back into chair, MaxA x2 to complete repositoining pt towards back to further back into chair. Pt attempted to complete ankle pumps with pt stating that she tends to get spasms in L LE with ankle pumps, Pt L LE slighlty ecternally rotated with small blanket roll placed on outside of pts foot to keep L LE in good placement to follow hip precautions. Pt states that she is then able to complete ankle pumps on L LE without spasms in this position. Pt then completed R LE ther ex including ankle pumps, QS, heel slides, SAQs, and hip abd x10-15 reps each. Educated pt on all hip precautions and WBing restrictions with pt demonstrating a good understanding. Pt remained sitting in bedside chair with LEs elevated, SCDs in place, ice pack applied to L hip, and soft pillow placed between knees to maintain proper positoining, pt states that she is unable to use abd pillow /t causing spasms in L LE. Pt tolerated session well and pt states no pain at end of therapy session. Bed Mobility Skill: Supine to Sit, Rehab Eval Level of [place]: Supine/Sit minimum assist (75% patients effort) (leg structural designer on L LE) Physical Assist/Nonphysical Assist: Supine/Sit 2 person assist Transfer Skill: Sit To Stand, Rehab Eval [place] (Sit-Stand Transfers) minimum assist (75% patient effort) Physical Assist/Nonphysical Assist: Sit/Stand 2 person assist Weight-Bearing Restrictions: Sit/Stand toe touch weight-bearing Assistive Device For Transfer: Sit/Stand 2 wheeled walker Gait Skills, PT Eval Level of [place]: Gait minimum assist (75% patients effort) Physical Assist/Nonphysical Assist: Gait 2 person assist Weight-Bearing Restrictions: Gait toe touch weight-bearing Assistive Device For Transfer: Gait 2 wheeled walker Gait Distance 5 feet (chair to bed) Gait Analysis, PT Eval Gait Pattern Used swing-to gait Stair Negotiation [place] Level: Stair Negotiation unable to assess Plan Plan for next visit Cont with ankle pumps only on L LE, ther ex on R LE, transfers, and mobility as able Maintain frequency yes 01/12/24 1557 Time In/Out Time In 1557 Time Out 1636 Total Visit Time 39 minutes PT Therapy Completed Yes Subjective RN Approved Intervention as tolerated Existing Precautions/Restrictions fall;hip;weight bearing (Global hip precautions, no active hip abduction, TTWB on the L LE, abductor pillow) Subjective Reports Pt met seated in the recliner and was agreeable to PT session. Cognitive Status Examination Orientation Status (Cognition) oriented x 4 Level of Consciousness alert Able to Follow Commands (Communication) WFL Personal Safety and Judgment intact General Pain Documentation (Adult, OB, Peds) Presence of Pain reports pain/discomfort Pain Location hip, left Pain Management Interventions positioning;cold application Select Pain Scale (7/10) Objective Therapeutic Interventions Pt met sitting up in the recliner and was agreeable to PT session. Pt required assist with the L LE while she scooted to the edge of the chair. Sit to stand completed with Min A x2 using the SW. Verbal cues provided to ensure pt maintains precautions and weight bearing. Gait training performed with pt ambulating 5ft using the SW with Min A. Verbal cues provided throughout for correct sequencing. Once seated EOB pt required Max A x2 to move from sit to supine. Pt was reporting muscle spasms in the L LE therefore all mobility tasks required increased time to manage pain from the spasms. Pt was positioned for comfort in the bed. Pt declining the hip abductor pillow and was provided with a bed pillow to ensure proper positioning of the L hip. Pt left sitting up in bed with call haddad within reach. Bed Mobility Skill: Sit to Supine, Rehab Eval Level of [place]: Sit/Supine maximum assist (25% patients effort) Physical Assist/Nonphysical Assist: Sit/Supine 2 person assist Transfer Skill: Sit To Stand, Rehab Eval [place] (Sit-Stand Transfers) minimum assist (75% patient effort) Physical Assist/Nonphysical Assist: Sit/Stand 2 person assist Weight-Bearing Restrictions: Sit/Stand toe touch weight-bearing Assistive Device For Transfer: Sit/Stand standard walker Gait Skills, PT Eval Level of [place]: Gait minimum assist (75% patients effort) Physical Assist/Nonphysical Assist: Gait 1 person + 1 person to manage equipment Weight-Bearing Restrictions: Gait toe touch weight-bearing Assistive Device For Transfer: Gait standard walker Gait Distance 5 feet Gait Analysis, PT Eval Gait Pattern Used swing-to gait Clinical Impression PT Therapies Still to Complete 5 Today's Treatment Included transfers, balance, gait Plan Plan for next visit Continue to progress overall mobility Patient referral to [facility] was faxed, waiting on that [facility] in [place] called and has a bed open, spoke with patient and she has opted to go to [facility] and [facility]. This nurse spoke with them and explained that . [facility] updated that Dr. Gomez accepted apatient and auth is started NUTRITION ASSESSMENT: POST-OP ORTHOPEDIC Nutrition Assessment Will order Ensure Max @ 1430 daily. Pt would benefit from the additional kcal, protein, vitamins, and minerals to help meet increased nutrition needs based on recent orthopedic surgery with Dr. Heredia. Recommend to continue supplementation at home for 2-4 weeks after surgery. Anthropometrics: Ht Readings from Last 1 Encounters: 01/11/24 1.626 m (5' 4 ) Wt Readings from Last 5 Encounters: 12/08/23 103 kg (227 lb) 12/01/23 103 kg (227 lb) Patient weight not recorded Body mass index is 38.96 kg/m . Nutrition Intake: Current Diet Orders Procedures DIET REGULAR Please provide one [place] Ensure Max over ice at 1430 daily Standing Status: Standing Number of Occurrences: 1 Allergies Allergen Reactions Morphine Nausea and Vomiting Other Reaction(s): GI intolerance Other Reaction(s): Unknown Oxycodone Nausea and Vomiting Other Reaction(s): GI intolerance Other Reaction(s): Unknown Penicillins Hives Labs: Lab Results Component Value Date GLUCOSE 179 (H) 01/12/2024 GLUCOSE 115 (H) 12/16/2023 HGBA1C 5.7 12/16/2023 SODIUM 138 01/12/2024 POTASSIUM 4.0 01/12/2024 CALCIUM 9.1 01/12/2024 ALBUMIN 4.0 12/16/2023 TP 7.2 12/16/2023 BUN 16 01/12/2024 CREATSERUM 0.70 01/12/2024 AST 25 12/16/2023 ALT 16 12/16/2023 HGB 10.9 (L) 01/12/2024 HCT 33.3 (L) 01/12/2024 WBC 10.5 01/12/2024 RBC 3.48 (L) 01/12/2024 PMH & PSH: Past Medical History: Diagnosis Date Aortic aneurysm Arthritis Deep vein thrombosis (DVT) GERD (gastroesophageal reflux disease) Past Surgical History: Procedure Laterality Date ARTHROPLASTY HIP TOTAL Left 01/11/2024 Laterality: Left; Surgeon: Erik Heredia MD; Location: [facility] OR NEPHRECTOMY Right 1978 CHOLECYSTECTOMY HIP REPLACEMENT Right HYSTERECTOMY KNEE REPLACEMENT Bilateral left x 2 LITHOTRIPSY multiple Nutrition Diagnosis NI-5.1 Increased protein needs related to increased demand for protein as evidenced by s/p orthopedic surgery. Interventions Order Ensure Max @ 1430 daily. Pt prefers strawberry served over ice Diet order: Regular Monitoring & Evaluation PO intake, labs, weight, ONS intake, and medical condition Low nutritional risk. Reassess in 7 days. Available by consult. ALDO Bower Registered Dietitian, Licensed Dietitian 01/12/24 Met with patient about placement to a SNF or [facility], Arely explained the reasons and processes of the placement, Daughter Ten and Granddaughter were present and all agreed [facility] did need a short stay at a rehab facility. I contacted [facility], no beds available , contacted [facility] per patients request and no beds available there. Daughter ten did recommend [facility], I did reach out to them and they have beds and asked me to fax the referral and they would start auth. Papers gathered and faxed at 12:00 , spoke with admissions there . Waiting currently on acceptance. 01/12/24 0851 Time In/Out Time In 0851 Time Out 0943 Total Visit Time 52 minutes PT Therapy Completed Yes Initial Evaluation/Screen Completed? yes General Information RN Approved Intervention as tolerated Diagnosis OA of the L hip Surgical Procedure L ANGELIQUE (anterior/lateral) Past Medical History Past Medical History: Diagnosis Date Aortic aneurysm Arthritis Deep vein thrombosis (DVT) GERD (gastroesophageal reflux disease) Past Surgical History Past Surgical History: Procedure Laterality Date ARTHROPLASTY HIP TOTAL Left 01/11/2024 Laterality: Left; Surgeon: Erik Heredia MD; Location: [facility] OR NEPHRECTOMY Right 1978 CHOLECYSTECTOMY HIP REPLACEMENT Right HYSTERECTOMY KNEE REPLACEMENT Bilateral left x 2 LITHOTRIPSY multiple Existing Precautions/Restrictions fall;hip;weight bearing (Global hip precautions, no active hip abd, TTWB on the L LE, abductor pillow at night) Left Lower Extremity toe touch weight bearing Home Setting Residence House Lives With alone First floor setup bedroom (sleeps in a recliner) Number of stairs to enter home 4 Number of stairs in home 13 (1 step up/down into sewing room, 12 steps to second level and has a stair lift) Mobility Equipment Available standard walker;rollator Previous Level of Function Ambulation modified independent with home Assistive Device standard walker General Pain Documentation (Adult, OB, Peds) Presence of Pain reports pain/discomfort Pain Location hip, left Pain Management Interventions activity minimized Select Pain Scale (10/10) Cognitive Status Examination Orientation Status (Cognition) oriented x 4 Level of Consciousness alert Able to Follow Commands (Communication) WFL Personal Safety and Judgment intact Range of Motion (ROM) Range of Motion Examination bilateral lower extremity ROM was WFL Manual Muscle Testing (MMT) Manual Muscle Testing Results deficits as listed below (L hip 3/5, L knee 3+/5) Bed Mobility Skill: Supine to Sit, Rehab Eval Level of [place]: Supine/Sit moderate assist (50% patients effort) Physical Assist/Nonphysical Assist: Supine/Sit 1 person assist Transfer Skill: Sit To Stand, Rehab Eval [place] (Sit-Stand Transfers) moderate assist (50% patient effort) Physical Assist/Nonphysical Assist: Sit/Stand 2 person assist Weight-Bearing Restrictions: Sit/Stand toe touch weight-bearing Assistive Device For Transfer: Sit/Stand standard walker Gait Skills, PT Eval Level of [place]: Gait minimum assist (75% patients effort) Physical Assist/Nonphysical Assist: Gait 1 person + 1 person to manage equipment Weight-Bearing Restrictions: Gait toe touch weight-bearing Assistive Device For Transfer: Gait standard walker Gait Distance 5 feet Gait Analysis, PT Eval Gait Pattern Used swing-to gait Balance Additional Documentation (Seated: Good Standing: Poor) Sensory Examination Sensory Examination WFL Plan of Care Interventions Planned Therapy Interventions balance training;bed mobility training;edema control;endurance;gait training;strengthening;transfer training Additional Comments Pt educated on hip precautions, use of leg structural designer and weight bearing status. Pt educated to only perform ankle pumps however pt reporting inability at this time stating it caused more leg spasms. Pt educated on sequencing for transfers and gait using SW to maintain TTWB. Increased time spent standing to focus on balance and posture to ensure pt is able to maintain weight bearing status. Pt having difficulty with this even with cues provided. Pt ambulating from the bed to the chair with Min A using the SW. Pt unable to maintain weight bearing status even with cues provided. Pt was left seated in the recliner with OT present. Assessment Assessment Narrative Pt is a 83 year old female s/p L ANGELIQUE (anterior/lateral). Pt is doing fair post op. Pt reporting pain and muscle spasms in the L hip. Pt has full PROM within her precautions but has difficulty with active movement. Pt does demonstrate LE weakness. Pt has difficulty with all mobility requiring assist and cues. Pt is unable to maintain her weight bearing status. Pt would not be safe to return home and will require inpatient PT services. Discharge Recommendations Recommend inpatient PT services. Clinical Impression Co-evaluation/co-treatment performed? Yes, combination of simultaneous billable and individual billable skilled care was necessary due to medical complexity and functional deficits Criteria for Skilled Therapeutic Interventions Met (PT Eval) yes, treatment indicated Impairments Found (PT Eval) Strength;Balance;Transfers;Gait /Locomotion;Edema;Aerobic capacity/endurance Rehab Potential (PT Eval) good Therapy Frequency 7 times a week PT Therapies Still to Complete 5 Continue care plan yes Today's Treatment Included PT evaluation, gait and patient education Therapist Recommendations At Discharge Recommendations PT Services recommended at Discharge Plan Plan for next session Next visit review precautions, progress mobility, practice car transfers and steps as able, and review/perform HEP. PT Goals: 1. Pt will demonstrate understanding of all precautions during functional mobility. 2. Pt will perform bed mobility with Min A to get in/out of bed. 3. Pt will perform all transfers with FWW and CGA to improve safety with mobility. 4. Pt will ambulate 25ft with FWW and CGA. 5. Pt will ambulate up and down 1 step up with CGA. 6. Pt will be independent with HEP per protocol. 01/12/24 0859 Time In/Out Time In 0859 Time Out 1002 Total Visit Time 63 minutes Total Treatment Time (skilled, billable minutes) 63 minutes OT Therapy Completed Yes OT Therapies Still to Complete 5 Initial Evaluation/Screen Completed? yes General Information RN Approved Intervention as tolerated Admitting Diagnosis s/p total hip arthoplasty Surgical Procedure L ANGELIQUE (anterior/lateral) Past Surgical History Past Surgical History: Procedure Laterality Date ARTHROPLASTY HIP TOTAL Left 01/11/2024 Laterality: Left; Surgeon: Erik Heredia MD; Location: [facility] OR NEPHRECTOMY Right 1978 CHOLECYSTECTOMY HIP REPLACEMENT Right HYSTERECTOMY KNEE REPLACEMENT Bilateral left x 2 LITHOTRIPSY multiple Past Medical History Past Medical History: Diagnosis Date Aortic aneurysm Arthritis Deep vein thrombosis (DVT) GERD (gastroesophageal reflux disease) Existing Precautions/Restrictions fall;hip;weight bearing (LLE TTWB, global precautions, hip abductor pillow at night) Previous Level of Function Bed Mobility independent Bathing independent Upper Body Dressing independent Lower Body Dressing independent Grooming independent Toileting independent Eating independent Home Management Skills independent General Pain Documentation (Adult, OB, Peds) Presence of Pain reports pain/discomfort Pain Location hip, left Pain Management Interventions cold application Select Pain Scale DVPRS (Defense and Veterans Pain Rating Scale) (Adult-Cognitively Intact) Home Setting Residence House Lives With alone (reports grand-daughter will be staying) First floor setup half bath Second floor setup walk in shower;grab bars Number of Stairs to Enter Home 4 Number of Stairs Within Home 12 (staurs) Stair Railings at Home outside, present on left side Equipment Available standard walker;shower chair;hand held shower hose;straight cane Cognitive Status Examination Orientation Status (Cognition) oriented x 4 Level of Consciousness alert;cooperative Able to Follow Commands (Communication) WFL Personal Safety and Judgment intact Vision Screen Currently wearing corrective lenses Reading only Speech Speech no gross deficits noted Hearing Hearing no gross deficits noted Manual Muscle Testing (MMT) Dominant Hand right Hand Petroleum Terminal Plant Operator, Right moderate Hand Petroleum Terminal Plant Operator, Left moderate Bed Mobility Skill: Supine to Sit, Rehab Eval Level of [place]: Supine/Sit minimum assist (75% patients effort) Physical Assist/Nonphysical Assist: Supine/Sit 1 person assist Transfer Skill: Sit to Stand, Rehab Eval Level of [place]: Sit/Stand moderate assist (50% patients effort) Physical Assist/Nonphysical Assist: Sit/Stand 2 person assist Weight-Bearing Restrictions: Sit/Stand toe touch weight-bearing Assistive Device for Transfer: Sit/Stand standard walker Transfer Skill: Toilet Transfer, Rehab Eval Assistive Device standard walker BADL Evaluation Additional Documentation Yes Upper Body Dressing Level of [place] minimum assist (75% patients effort) Lower Body Dressing Level of [place] (refused to practice) Toileting Level of [place] (refused, reports wanting to use [place]wick only) Grooming [place] Level (Grooming) grooming skills;wash face, hands;set up General Therapy Interventions Planned Therapy Interventions (OT Eval) ADL retraining;balance training;functional activity tolerance;transfer training Assessment Assessment Pt educated on all hip precautions/restrictions, and reports understanding, requiring repeat education. Pt instructed in the importance of utilizing hip kit to maintain restrictions. At OT arrival, pt had abductor pillow and josafat hose off, Arely HERNANDEZ in room. Pt reports that she is declining to wear josafat hose and declined to wear abductor pillow at night, therefore pillows were placed in between legs. Pt required increased time to receive education for restrictions. Pt completed supine to sit min A x1 person, with leg structural designer and head of bead elevated. Pt able to sit EOB mod I. Pt completed sit to stand from elevated bed with mod A x2 person. Pt able to stand with verbal cuing to maintain weight bearing restriction while OT assisted with chase care and brief change, max A x1 person. Pt completed short functional amb to bedside chair with min A x2 person, pt completed stand to sit min A x1 person. OT discussed with patient regarding LB dressing and the use of adaptive equipment. Pt reports that she had purchased the hip kit, but patient declining practicing donning/doffing socks (reporting she does not and will not use them), pt declined practicing lower body dressing this date stating that she will night gowns, OT demod for when she wears undergarments but declined to practice. Pt seated in chair completed grooming and UB Dressing with min A and set up. At this time, pt reports that she has more >20 feet to ambulate to bathroom which is down 1 step to half bath. Discussed with patient, regarding concern with discharge home, due to limited support. Pt declining placement at this time despite education. Pt reports that her granddaughter will assist, but concern is patient not adhering to TTWB at this time and adhering to other restriction. Clinical Impression Co-evaluation/co-treatment performed? Yes, simultaneous billable skilled care was necessary due to medical complexity and functional deficits Rehab Potential (OT Eval) fair Therapy Frequency 7 times a week Anticipated Equipment Needs at Discharge (OT Eval) raised toilet seat Continue care plan yes Goals Goals For Discharge recommending swing bed vs ECF, pt is unsafe to return home at this time Therapist Recommendations At Discharge Recommendations OT Services recommended at Discharge Plan Plan for next session adls and functional transfers Therapist Information License # [id number] Pt will complete LB dressing with min A with AE Pt will be able to recall 100% of precautions with 1-2 vc to increase overall safe recovery Pt will demo functional transfers, while maintaining weight bearing precautions, CGA Pt will complete sponge bathing with mod A Pt will complete tolieting with min A Pt will complete grooming while standing at sink with CGA Pt will demo stimulated shower (walk in) transfer with AE prn, min A Patient was assessed in [place] on 12-15. Met with patient for follow up after surgery to discuss discharge plans to return home with family assist Patient has walker and denies any equipment needs at this time. Nursing reports that the incision has been closed with suture/deysi, will request 3 week follow up appointment on 02-01 @ 1130. Patient denies any other questions or needs at this time. THIS PATIENT HAS HAD ORTHOPEDIC SURGERY AND IS EXPECTED TO HAVE PAIN REQUIRING NARCOTICS FOR >7 DAYS AND MAY NEED UP TO 8 tabs of norco PER DAY AND THEREFORE 30tabs ARE BEING DISPENSED IN ACCORDANCE WITH POC DISCUSSED WITH DR HEREDIA. documented in this encounter [facility] 01-19-2024 Nurse Note Patient resting in bed. Assessment remains unchanged from previous. Call light is [facility] Pt resting in the chair. Assessment remains unchanged from previous. Pt's SPO2 is 84% on room air, so patient is put on 2L nasal cannula and SPO2 is now 90%. Call light is within reach. [facility] Note DEYSI dressing is no longer flashing, automobile service writer removes it per ortho note. Incision is CDI. Ice pack applied. [facility] 01-18-2024 Nurse Note Remains up in recliner. No change noted from previous assessment by this RN unless otherwise detailed in coordinating flow sheets. PRN ultram given per order for c/o left hip and torso pain. States her dinner order was called in by AUTOMOTIVE PROJECT ENGINEER. Denies additional needs at this time, call light in reach, recliner wheels locked. [facility] 01-18-2024 Plan of care note Problem: Adult Inpatient Plan of Care Goal: Plan of Care Review Outcome: Progressing Goal: Patient-Specific Goal (Individualized) Outcome: Progressing Goal: Absence of Hospital-Acquired Illness or Injury Outcome: Progressing Goal: Optimal Comfort and Wellbeing Outcome: Progressing Goal: Readiness for Transition of Care Outcome: Progressing Problem: Skin Injury Risk Increased Goal: Skin Health and Integrity Outcome: Progressing [facility] 01-18-2024 Nurse Note Remains up in recliner. No change noted from previous assessment by this RN unless otherwise detailed in coordinating flow sheets. Denies additional needs at this time, call light in reach, recliner wheels locked. [facility] 01-18-2024 Consult note Formatting of th is note is different from the original. Medical consultation Patient is a week postop total hip arthroplasty. No new complaints. Pain is adequately controlled. Therapy is progressing. Awaiting approval from insurance for swing bed. Known right bundle branch block. Preop EKG at baseline. Known diastolic dysfunction. Director Of Services did clear her for surgery. She had a preoperative echocardiogram which is not available to me. Known B12 deficiency on oral replacement. History of DVT/PE on anticoagulation. Elevated blood pressure without formal diagnosis of hypertension. Not on any medication currently. Impaired fasting glucose. Watching diet only. Hemoglobin A1c preoperatively normal. 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 No recent signs of gout. Known GERD/gastritis. Symptoms are under good control. There are no side effects noted from the medication. she denies water brash, bitter or metallic taste, dysphagia, nausea, vomiting, hematemesis, melena, or black/tarry stools. Known urinary incontinence. Doing well on current medication. History of AAA. No symptoms. Echocardiogram performed preoperatively as part of cardiac clearance. General: No fever, chills, weight loss. HEENT: No sinus pain, ear pain, sore throat. Neck: No LAD. Lungs: No cough, sputum, pleuritic pain, hemoptysis, SOB. CV: No palpitation, orthopnea, PND, edema. GI: No abd pain, nausea, vomiting, diarrhea, constipation, melena, hematochezia. : No dysuria, frequency, hematuria. Skin: No rash or lesion. Neuro: No mental status changes, headache, focal neurologic complaints. Objective: Blood pressure 133/67, pulse 91, temperature 97.5 F (36.4 C), temperature source Temporal, resp. rate 16, height 1.626 m (5' 4 ), weight 98.4 kg (216 lb 14.9 oz), SpO2 (!) 89%. Results for orders placed or performed during the hospital encounter of 01/11/24 PROTIME-INR Result Value Ref Range PT 14.2 11.8 - 14.4 SEC INR 1.09 0.85 - 1.10 CBC, EDIF, PLATELET Result Value Ref Range WBC (WHITE BLOOD COUNT) 10.5 3.6 - 11.0 10*3/uL RBC 3.48 (L) 4.0 - 5.4 10*6/uL HEMOGLOBIN (HGB) 10.9 (L) 12.0 - 16.0 G/DL HEMATOCRIT (HCT) 33.3 (L) 36.0 - 48.0 % MEAN CELL VOLUME 95.7 80.0 - 100.0 FL Mean Cell HGB 31.4 26.0 - 35.0 PG MEAN CELL HGB CONCENTRATION 32.8 27.0 - 37.0 G/DL RBC DISTRIBUTION 14.3 11.5 - 14.5 % PLATELET COUNT 247 130 - 400 10*3/uL MEAN PLATELET VOLUME 8.2 7.4 - 11.0 FL DIFFERENTIAL TYPE AUTO DIFF % NEUTROPHILS 89.5 (H) 37.0 - 75.0 % LYMPHOCYTE 5.9 (L) 20.0 - 55.0 % MONOCYTE % 4.5 0.0 - 10.0 % EOSINOPHIL % 0.0 0.0 - 11.0 % BASOPHIL % 0.1 0.0 - 2.0 % Absolute Neutrophil Count 9.4 (H) 1.4 - 6.5 10*3/uL LYMPHOCYTES, ABSOLUTE 0.6 (L) 1.2 - 3.4 10*3/uL MONOCYTES, ABSOLUTE 0.5 0.0 - 0.7 10*3/uL ABSOLUTE EOSINOPHIL COUNT 0.0 0.0 - 0.7 10*3/uL ABSOLUTE BASOPHIL COUNT 0.0 0.0 - 0.2 10*3/uL BASIC METABOLIC PANEL Result Value Ref Range Glucose 179 (H) 70 - 100 MG/DL BUN 16 7 - 20 MG/DL CREATININE SERUM 0.70 0.70 - 1.20 MG/DL SODIUM 138 137 - 145 MMOL/L POTASSIUM 4.0 3.5 - 5.1 MMOL/L CHLORIDE 105 98 - 107 MMOL/L CARBON DIOXIDE (CO2) 24 22 - 30 MMOL/L ANION GAP 9 MMOL/L CALCIUM 9.1 8.4 - 10.2 MG/DL ESTIMATED GFR, NON AMER 85 ml/min/1.73sq.m ESTIMATED GFR, 103 ml/min/1.73sq.m GFR COMMENT Average GFR for 70+ years old = 75. CBC, EDIF, PLATELET Result Value Ref Range WBC (WHITE BLOOD COUNT) 10.0 3.6 - 11.0 10*3/uL RBC 3.31 (L) 4.0 - 5.4 10*6/uL HEMOGLOBIN (HGB) 10.6 (L) 12.0 - 16.0 G/DL HEMATOCRIT (HCT) 31.8 (L) 36.0 - 48.0 % MEAN CELL VOLUME 95.9 80.0 - 100.0 FL Mean Cell HGB 31.9 26.0 - 35.0 PG MEAN CELL HGB CONCENTRATION 33.2 27.0 - 37.0 G/DL RBC DISTRIBUTION 14.5 11.5 - 14.5 % PLATELET COUNT 228 130 - 400 10*3/uL MEAN PLATELET VOLUME 8.1 7.4 - 11.0 FL DIFFERENTIAL TYPE AUTO DIFF % NEUTROPHILS 85.8 (H) 37.0 - 75.0 % LYMPHOCYTE 5.9 (L) 20.0 - 55.0 % MONOCYTE % 8.3 0.0 - 10.0 % EOSINOPHIL % 0.0 0.0 - 11.0 % BASOPHIL % 0.0 0.0 - 2.0 % Absolute Neutrophil Count 8.6 (H) 1.4 - 6.5 10*3/uL LYMPHOCYTES, ABSOLUTE 0.6 (L) 1.2 - 3.4 10*3/uL MONOCYTES, ABSOLUTE 0.8 (H) 0.0 - 0.7 10*3/uL ABSOLUTE EOSINOPHIL COUNT 0.0 0.0 - 0.7 10*3/uL ABSOLUTE BASOPHIL COUNT 0.0 0.0 - 0.2 10*3/uL BASIC METABOLIC PANEL Result Value Ref Range Glucose 164 (H) 70 - 100 MG/DL BUN 19 7 - 20 MG/DL CREATININE SERUM 0.70 0.70 - 1.20 MG/DL SODIUM 137 137 - 145 MMOL/L POTASSIUM 4.2 3.5 - 5.1 MMOL/L CHLORIDE 107 98 - 107 MMOL/L CARBON DIOXIDE (CO2) 26 22 - 30 MMOL/L ANION GAP 4 MMOL/L CALCIUM 9.0 8.4 - 10.2 MG/DL ESTIMATED GFR, NON AMER 85 ml/min/1.73sq.m ESTIMATED GFR, 103 ml/min/1.73sq.m GFR COMMENT Average GFR for 70+ years old = 75. TROPONIN I, HIGH SENSITIVITY Result Value Ref Range TROPONIN I, HIGH SENSITIVITY 9 0 - 12 pg/mL TROPONIN I, HIGH SENSITIVITY Result Value Ref Range TROPONIN I, HIGH SENSITIVITY 10 0 - 12 pg/mL TROPONIN I, HIGH SENSITIVITY Result Value Ref Range TROPONIN I, HIGH SENSITIVITY 14 (H) 0 - 12 pg/mL CBC, EDIF, PLATELET Result Value Ref Range WBC (WHITE BLOOD COUNT) 9.9 3.6 - 11.0 10*3/uL RBC 3.35 (L) 4.0 - 5.4 10*6/uL HEMOGLOBIN (HGB) 10.5 (L) 12.0 - 16.0 G/DL HEMATOCRIT (HCT) 32.1 (L) 36.0 - 48.0 % MEAN CELL VOLUME 96.0 80.0 - 100.0 FL Mean Cell HGB 31.4 26.0 - 35.0 PG MEAN CELL HGB CONCENTRATION 32.8 27.0 - 37.0 G/DL RBC DISTRIBUTION 14.6 (H) 11.5 - 14.5 % PLATELET COUNT 226 130 - 400 10*3/uL MEAN PLATELET VOLUME 8.4 7.4 - 11.0 FL DIFFERENTIAL TYPE AUTO DIFF % NEUTROPHILS 77.4 (H) 37.0 - 75.0 % LYMPHOCYTE 11.0 (L) 20.0 - 55.0 % MONOCYTE % 10.8 (H) 0.0 - 10.0 % EOSINOPHIL % 0.5 0.0 - 11.0 % BASOPHIL % 0.3 0.0 - 2.0 % Absolute Neutrophil Count 7.6 (H) 1.4 - 6.5 10*3/uL LYMPHOCYTES, ABSOLUTE 1.1 (L) 1.2 - 3.4 10*3/uL MONOCYTES, ABSOLUTE 1.1 (H) 0.0 - 0.7 10*3/uL ABSOLUTE EOSINOPHIL COUNT 0.1 0.0 - 0.7 10*3/uL ABSOLUTE BASOPHIL COUNT 0.0 0.0 - 0.2 10*3/uL CBC, EDIF, PLATELET Result Value Ref Range WBC (WHITE BLOOD COUNT) 6.8 3.6 - 11.0 10*3/uL RBC 3.09 (L) 4.0 - 5.4 10*6/uL HEMOGLOBIN (HGB) 9.8 (L) 12.0 - 16.0 G/DL HEMATOCRIT (HCT) 29.2 (L) 36.0 - 48.0 % MEAN CELL VOLUME 94.6 80.0 - 100.0 FL Mean Cell HGB 31.8 26.0 - 35.0 PG MEAN CELL HGB CONCENTRATION 33.6 27.0 - 37.0 G/DL RBC DISTRIBUTION 13.9 11.5 - 14.5 % PLATELET COUNT 279 130 - 400 10*3/uL MEAN PLATELET VOLUME 7.9 7.4 - 11.0 FL DIFFERENTIAL TYPE AUTO DIFF % NEUTROPHILS 69.1 37.0 - 75.0 % LYMPHOCYTE 16.5 (L) 20.0 - 55.0 % MONOCYTE % 11.9 (H) 0.0 - 10.0 % EOSINOPHIL % 1.9 0.0 - 11.0 % BASOPHIL % 0.6 0.0 - 2.0 % Absolute Neutrophil Count 4.7 1.4 - 6.5 10*3/uL LYMPHOCYTES, ABSOLUTE 1.1 (L) 1.2 - 3.4 10*3/uL MONOCYTES, ABSOLUTE 0.8 (H) 0.0 - 0.7 10*3/uL ABSOLUTE EOSINOPHIL COUNT 0.1 0.0 - 0.7 10*3/uL ABSOLUTE BASOPHIL COUNT 0.0 0.0 - 0.2 10*3/uL RENAL FUNCTION PANEL Result Value Ref Range Glucose 106 (H) 70 - 100 MG/DL BUN 10 7 - 20 MG/DL CREATININE SERUM 0.51 (L) 0.70 - 1.20 MG/DL SODIUM 135 (L) 137 - 145 MMOL/L POTASSIUM 3.3 (L) 3.5 - 5.1 MMOL/L CHLORIDE 105 98 - 107 MMOL/L CARBON DIOXIDE (CO2) 29 22 - 30 MMOL/L Albumin 2.6 (L) 3.5 - 5.0 G/dl CALCIUM 8.2 (L) 8.4 - 10.2 MG/DL PHOSPHORUS 2.6 2.5 - 4.5 MG/DL ESTIMATED GFR, NON AMER 123 ml/min/1.73sq.m ESTIMATED GFR, 149 ml/min/1.73sq.m GFR COMMENT Average GFR for 70+ years old = 75. BASIC METABOLIC PANEL Result Value Ref Range Glucose 119 (H) 70 - 100 MG/DL BUN 10 7 - 20 MG/DL CREATININE SERUM 0.60 (L) 0.70 - 1.20 MG/DL SODIUM 135 (L) 137 - 145 MMOL/L POTASSIUM 3.5 3.5 - 5.1 MMOL/L CHLORIDE 105 98 - 107 MMOL/L CARBON DIOXIDE (CO2) 27 22 - 30 MMOL/L ANION GAP 3 MMOL/L CALCIUM 8.4 8.4 - 10.2 MG/DL ESTIMATED GFR, NON AMER 102 ml/min/1.73sq.m ESTIMATED GFR, 123 ml/min/1.73sq.m GFR COMMENT Average GFR for 70+ years old = 75. REPEAT ABO/RH (D) TYPING Result Value Ref Range ABO/RH(D) O POSITIVE SURGICAL PATHOLOGY REQUEST Result Value Ref Range SURG PATH RESULT Surgical Final Report Patient Name: CUATE GOODMAN [facility]. Rec. #: [id number] Physician: ERIK HEREDIA Specimen(s) Received Left femoral head Clinical / Pre-Operative Diagnosis Osteoarthritis of left hip unspecified osteoarthritis type Post-Operative Diagnosis Not provided Surgical Procedure Arthroplasty hip total latera approach Diagnosis: Left femoral head, Excision: -Consistent with degenerative joint disease Electronically Signed lks/01/13/2024 Khoa Vieyra DO Gross Description: The specimen is received in formalin, and labeled left femoral head, Cuate Goodman and date of 1940. The specimen consists of a femoral head and neck measuring 5.5 x 5 x 5 cm with articular cartilage degeneration. Sectioning reveals unremarkable bone. Hip Hop Artist sections are submitted in one cassette and placed in decalcification solution prior to processing. Billing Fee Code(s) A: 35870, 09709 HEENT: NC/AT, PERRLA, EOMI, fundi benign, external ears normal, OP normal. Neck: No LAD/thyromegaly. No JVD/bruit. Lungs: Clear to auscultation bilaterally. No wheezes, rales, ronchi. Heart: RRR. No S3/S4. Abdomen: Soft, NT/ND, normal bowel sounds, no HSM, no bruits. Extremities: No clubbing, cyanosis, edema. Normal pulses. Neurologic: CN II-XII intact. Strength/DTR's/sensation symmetric. Cerebellar function normal. Skin: No rash or suspicious lesions. Musculoskeletal: No edema, redness, warmth, deformities. Psychiatric: Alert and oriented. Affect and mood normal. Assessment and Plan: Postop day 7 total hip arthroplasty - pain medication, therapy, and anticoagulation per Orthopedic surgery. Full anticoagulation started. Awaiting insurance approval for swing bed. Right bundle branch block - monitor heart rhythm on telemetry. History of diastolic dysfunction - monitor fluid status closely. B12 deficiency - resume oral replacement as soon as discharged. History of DVT/PE - full anticoagulation started. Elevated blood pressure without diagnosis of hypertension - monitor blood pressures closely, BMP in the morning. Impaired fasting glucose - carb controlled diet and basic metabolic panel in the morning. No need for sliding scale insulin since hemoglobin A1c is normal. Elevated uric acid - continue allopurinol and monitor clinically for gout. GERD - continue proton pump inhibitor also for GI prophylaxis. Urinary incontinence - continue home medications. AAA - no acute management needed during hospitalization. Hypokalemia - resolved. 35 minutes total time. Luis Monte MD 01/18/2024 [facility] 01-18-2024 Consult note Formatting of th is note is different from the original. Medical consultation Patient is a week postop total hip arthroplasty. No new complaints. Pain is adequately controlled. Therapy is progressing. Awaiting approval from insurance for swing bed. Known right bundle branch block. Preop EKG at baseline. Known diastolic dysfunction. Director Of Services did clear her for surgery. She had a preoperative echocardiogram which is not available to me. Known B12 deficiency on oral replacement. History of DVT/PE on anticoagulation. Elevated blood pressure without formal diagnosis of hypertension. Not on any medication currently. Impaired fasting glucose. Watching diet only. Hemoglobin A1c preoperatively normal. 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 No recent signs of gout. Known GERD/gastritis. Symptoms are under good control. There are no side effects noted from the medication. she denies water brash, bitter or metallic taste, dysphagia, nausea, vomiting, hematemesis, melena, or black/tarry stools. Known urinary incontinence. Doing well on current medication. History of AAA. No symptoms. Echocardiogram performed preoperatively as part of cardiac clearance. General: No fever, chills, weight loss. HEENT: No sinus pain, ear pain, sore throat. Neck: No LAD. Lungs: No cough, sputum, pleuritic pain, hemoptysis, SOB. CV: No palpitation, orthopnea, PND, edema. GI: No abd pain, nausea, vomiting, diarrhea, constipation, melena, hematochezia. : No dysuria, frequency, hematuria. Skin: No rash or lesion. Neuro: No mental status changes, headache, focal neurologic complaints. Objective: Blood pressure 133/67, pulse 91, temperature 97.5 F (36.4 C), temperature source Temporal, resp. rate 16, height 1.626 m (5' 4 ), weight 98.4 kg (216 lb 14.9 oz), SpO2 (!) 89%. Results for orders placed or performed during the hospital encounter of 01/11/24 PROTIME-INR Result Value Ref Range PT 14.2 11.8 - 14.4 SEC INR 1.09 0.85 - 1.10 CBC, EDIF, PLATELET Result Value Ref Range WBC (WHITE BLOOD COUNT) 10.5 3.6 - 11.0 10*3/uL RBC 3.48 (L) 4.0 - 5.4 10*6/uL HEMOGLOBIN (HGB) 10.9 (L) 12.0 - 16.0 G/DL HEMATOCRIT (HCT) 33.3 (L) 36.0 - 48.0 % MEAN CELL VOLUME 95.7 80.0 - 100.0 FL Mean Cell HGB 31.4 26.0 - 35.0 PG MEAN CELL HGB CONCENTRATION 32.8 27.0 - 37.0 G/DL RBC DISTRIBUTION 14.3 11.5 - 14.5 % PLATELET COUNT 247 130 - 400 10*3/uL MEAN PLATELET VOLUME 8.2 7.4 - 11.0 FL DIFFERENTIAL TYPE AUTO DIFF % NEUTROPHILS 89.5 (H) 37.0 - 75.0 % LYMPHOCYTE 5.9 (L) 20.0 - 55.0 % MONOCYTE % 4.5 0.0 - 10.0 % EOSINOPHIL % 0.0 0.0 - 11.0 % BASOPHIL % 0.1 0.0 - 2.0 % Absolute Neutrophil Count 9.4 (H) 1.4 - 6.5 10*3/uL LYMPHOCYTES, ABSOLUTE 0.6 (L) 1.2 - 3.4 10*3/uL MONOCYTES, ABSOLUTE 0.5 0.0 - 0.7 10*3/uL ABSOLUTE EOSINOPHIL COUNT 0.0 0.0 - 0.7 10*3/uL ABSOLUTE BASOPHIL COUNT 0.0 0.0 - 0.2 10*3/uL BASIC METABOLIC PANEL Result Value Ref Range Glucose 179 (H) 70 - 100 MG/DL BUN 16 7 - 20 MG/DL CREATININE SERUM 0.70 0.70 - 1.20 MG/DL SODIUM 138 137 - 145 MMOL/L POTASSIUM 4.0 3.5 - 5.1 MMOL/L CHLORIDE 105 98 - 107 MMOL/L CARBON DIOXIDE (CO2) 24 22 - 30 MMOL/L ANION GAP 9 MMOL/L CALCIUM 9.1 8.4 - 10.2 MG/DL ESTIMATED GFR, NON AMER 85 ml/min/1.73sq.m ESTIMATED GFR, 103 ml/min/1.73sq.m GFR COMMENT Average GFR for 70+ years old = 75. CBC, EDIF, PLATELET Result Value Ref Range WBC (WHITE BLOOD COUNT) 10.0 3.6 - 11.0 10*3/uL RBC 3.31 (L) 4.0 - 5.4 10*6/uL HEMOGLOBIN (HGB) 10.6 (L) 12.0 - 16.0 G/DL HEMATOCRIT (HCT) 31.8 (L) 36.0 - 48.0 % MEAN CELL VOLUME 95.9 80.0 - 100.0 FL Mean Cell HGB 31.9 26.0 - 35.0 PG MEAN CELL HGB CONCENTRATION 33.2 27.0 - 37.0 G/DL RBC DISTRIBUTION 14.5 11.5 - 14.5 % PLATELET COUNT 228 130 - 400 10*3/uL MEAN PLATELET VOLUME 8.1 7.4 - 11.0 FL DIFFERENTIAL TYPE AUTO DIFF % NEUTROPHILS 85.8 (H) 37.0 - 75.0 % LYMPHOCYTE 5.9 (L) 20.0 - 55.0 % MONOCYTE % 8.3 0.0 - 10.0 % EOSINOPHIL % 0.0 0.0 - 11.0 % BASOPHIL % 0.0 0.0 - 2.0 % Absolute Neutrophil Count 8.6 (H) 1.4 - 6.5 10*3/uL LYMPHOCYTES, ABSOLUTE 0.6 (L) 1.2 - 3.4 10*3/uL MONOCYTES, ABSOLUTE 0.8 (H) 0.0 - 0.7 10*3/uL ABSOLUTE EOSINOPHIL COUNT 0.0 0.0 - 0.7 10*3/uL ABSOLUTE BASOPHIL COUNT 0.0 0.0 - 0.2 10*3/uL BASIC METABOLIC PANEL Result Value Ref Range Glucose 164 (H) 70 - 100 MG/DL BUN 19 7 - 20 MG/DL CREATININE SERUM 0.70 0.70 - 1.20 MG/DL SODIUM 137 137 - 145 MMOL/L POTASSIUM 4.2 3.5 - 5.1 MMOL/L CHLORIDE 107 98 - 107 MMOL/L CARBON DIOXIDE (CO2) 26 22 - 30 MMOL/L ANION GAP 4 MMOL/L CALCIUM 9.0 8.4 - 10.2 MG/DL ESTIMATED GFR, NON AMER 85 ml/min/1.73sq.m ESTIMATED GFR, 103 ml/min/1.73sq.m GFR COMMENT Average GFR for 70+ years old = 75. TROPONIN I, HIGH SENSITIVITY Result Value Ref Range TROPONIN I, HIGH SENSITIVITY 9 0 - 12 pg/mL TROPONIN I, HIGH SENSITIVITY Result Value Ref Range TROPONIN I, HIGH SENSITIVITY 10 0 - 12 pg/mL TROPONIN I, HIGH SENSITIVITY Result Value Ref Range TROPONIN I, HIGH SENSITIVITY 14 (H) 0 - 12 pg/mL CBC, EDIF, PLATELET Result Value Ref Range WBC (WHITE BLOOD COUNT) 9.9 3.6 - 11.0 10*3/uL RBC 3.35 (L) 4.0 - 5.4 10*6/uL HEMOGLOBIN (HGB) 10.5 (L) 12.0 - 16.0 G/DL HEMATOCRIT (HCT) 32.1 (L) 36.0 - 48.0 % MEAN CELL VOLUME 96.0 80.0 - 100.0 FL Mean Cell HGB 31.4 26.0 - 35.0 PG MEAN CELL HGB CONCENTRATION 32.8 27.0 - 37.0 G/DL RBC DISTRIBUTION 14.6 (H) 11.5 - 14.5 % PLATELET COUNT 226 130 - 400 10*3/uL MEAN PLATELET VOLUME 8.4 7.4 - 11.0 FL DIFFERENTIAL TYPE AUTO DIFF % NEUTROPHILS 77.4 (H) 37.0 - 75.0 % LYMPHOCYTE 11.0 (L) 20.0 - 55.0 % MONOCYTE % 10.8 (H) 0.0 - 10.0 % EOSINOPHIL % 0.5 0.0 - 11.0 % BASOPHIL % 0.3 0.0 - 2.0 % Absolute Neutrophil Count 7.6 (H) 1.4 - 6.5 10*3/uL LYMPHOCYTES, ABSOLUTE 1.1 (L) 1.2 - 3.4 10*3/uL MONOCYTES, ABSOLUTE 1.1 (H) 0.0 - 0.7 10*3/uL ABSOLUTE EOSINOPHIL COUNT 0.1 0.0 - 0.7 10*3/uL ABSOLUTE BASOPHIL COUNT 0.0 0.0 - 0.2 10*3/uL CBC, EDIF, PLATELET Result Value Ref Range WBC (WHITE BLOOD COUNT) 6.8 3.6 - 11.0 10*3/uL RBC 3.09 (L) 4.0 - 5.4 10*6/uL HEMOGLOBIN (HGB) 9.8 (L) 12.0 - 16.0 G/DL HEMATOCRIT (HCT) 29.2 (L) 36.0 - 48.0 % MEAN CELL VOLUME 94.6 80.0 - 100.0 FL Mean Cell HGB 31.8 26.0 - 35.0 PG MEAN CELL HGB CONCENTRATION 33.6 27.0 - 37.0 G/DL RBC DISTRIBUTION 13.9 11.5 - 14.5 % PLATELET COUNT 279 130 - 400 10*3/uL MEAN PLATELET VOLUME 7.9 7.4 - 11.0 FL DIFFERENTIAL TYPE AUTO DIFF % NEUTROPHILS 69.1 37.0 - 75.0 % LYMPHOCYTE 16.5 (L) 20.0 - 55.0 % MONOCYTE % 11.9 (H) 0.0 - 10.0 % EOSINOPHIL % 1.9 0.0 - 11.0 % BASOPHIL % 0.6 0.0 - 2.0 % Absolute Neutrophil Count 4.7 1.4 - 6.5 10*3/uL LYMPHOCYTES, ABSOLUTE 1.1 (L) 1.2 - 3.4 10*3/uL MONOCYTES, ABSOLUTE 0.8 (H) 0.0 - 0.7 10*3/uL ABSOLUTE EOSINOPHIL COUNT 0.1 0.0 - 0.7 10*3/uL ABSOLUTE BASOPHIL COUNT 0.0 0.0 - 0.2 10*3/uL RENAL FUNCTION PANEL Result Value Ref Range Glucose 106 (H) 70 - 100 MG/DL BUN 10 7 - 20 MG/DL CREATININE SERUM 0.51 (L) 0.70 - 1.20 MG/DL SODIUM 135 (L) 137 - 145 MMOL/L POTASSIUM 3.3 (L) 3.5 - 5.1 MMOL/L CHLORIDE 105 98 - 107 MMOL/L CARBON DIOXIDE (CO2) 29 22 - 30 MMOL/L Albumin 2.6 (L) 3.5 - 5.0 G/dl CALCIUM 8.2 (L) 8.4 - 10.2 MG/DL PHOSPHORUS 2.6 2.5 - 4.5 MG/DL ESTIMATED GFR, NON AMER 123 ml/min/1.73sq.m ESTIMATED GFR, 149 ml/min/1.73sq.m GFR COMMENT Average GFR for 70+ years old = 75. BASIC METABOLIC PANEL Result Value Ref Range Glucose 119 (H) 70 - 100 MG/DL BUN 10 7 - 20 MG/DL CREATININE SERUM 0.60 (L) 0.70 - 1.20 MG/DL SODIUM 135 (L) 137 - 145 MMOL/L POTASSIUM 3.5 3.5 - 5.1 MMOL/L CHLORIDE 105 98 - 107 MMOL/L CARBON DIOXIDE (CO2) 27 22 - 30 MMOL/L ANION GAP 3 MMOL/L CALCIUM 8.4 8.4 - 10.2 MG/DL ESTIMATED GFR, NON AMER 102 ml/min/1.73sq.m ESTIMATED GFR, 123 ml/min/1.73sq.m GFR COMMENT Average GFR for 70+ years old = 75. REPEAT ABO/RH (D) TYPING Result Value Ref Range ABO/RH(D) O POSITIVE SURGICAL PATHOLOGY REQUEST Result Value Ref Range SURG PATH RESULT Surgical Final Report Patient Name: CUATE GOODMAN Med. Rec. #: [id number] Physician: ERIK HEREDIA Specimen(s) Received Left femoral head Clinical / Pre-Operative Diagnosis Osteoarthritis of left hip unspecified osteoarthritis type Post-Operative Diagnosis Not provided Surgical Procedure Arthroplasty hip total latera approach Diagnosis: Left femoral head, Excision: -Consistent with degenerative joint disease Electronically Signed lks/01/13/2024 Khoa Vieyra DO Gross Description: The specimen is received in formalin, and labeled left femoral head, Cuate Goodman and date of 1940. The specimen consists of a femoral head and neck measuring 5.5 x 5 x 5 cm with articular cartilage degeneration. Sectioning reveals unremarkable bone. Hip Hop Artist sections are submitted in one cassette and placed in decalcification solution prior to processing. Billing Fee Code(s) A: [id number] HEENT: NC/AT, PERRLA, EOMI, fundi benign, external ears normal, OP normal. Neck: No LAD/thyromegaly. No JVD/bruit. Lungs: Clear to auscultation bilaterally. No wheezes, rales, ronchi. Heart: RRR. No S3/S4. Abdomen: Soft, NT/ND, normal bowel sounds, no HSM, no bruits. Extremities: No clubbing, cyanosis, edema. Normal pulses. Neurologic: CN II-XII intact. Strength/DTR's/sensation symmetric. Cerebellar function normal. Skin: No rash or suspicious lesions. Musculoskeletal: No edema, redness, warmth, deformities. Psychiatric: Alert and oriented. Affect and mood normal. Assessment and Plan: Postop day 7 total hip arthroplasty - pain medication, therapy, and anticoagulation per Orthopedic surgery. Full anticoagulation started. Awaiting insurance approval for swing bed. Right bundle branch block - monitor heart rhythm on telemetry. History of diastolic dysfunction - monitor fluid status closely. B12 deficiency - resume oral replacement as soon as discharged. History of DVT/PE - full anticoagulation started. Elevated blood pressure without diagnosis of hypertension - monitor blood pressures closely, BMP in the morning. Impaired fasting glucose - carb controlled diet and basic metabolic panel in the morning. No need for sliding scale insulin since hemoglobin A1c is normal. Elevated uric acid - continue allopurinol and monitor clinically for gout. GERD - continue proton pump inhibitor also for GI prophylaxis. Urinary incontinence - continue home medications. AAA - no acute management needed during hospitalization. Hypokalemia - resolved. 35 minutes total time. Luis Monte MD 01/18/2024 Medical consultation Patient is an 83-year-old female who presents for total hip arthroplasty. She is doing well postoperatively. Pain is well controlled. She has ambulated and voided. She denies chest pain, palpitations, cough, sputum, shortness of breath, vomiting, lower extremity edema. Patient has agreed to swing bed. Awaiting insurance approval. Known right bundle branch block. Preop EKG at baseline. Known diastolic dysfunction. Director Of Services did clear her for surgery. She had a preoperative echocardiogram which is not available to me. Known B12 deficiency on oral replacement. History of DVT/PE on anticoagulation. Elevated blood pressure without formal diagnosis of hypertension. Not on any medication currently. Impaired fasting glucose. Watching diet only. Hemoglobin A1c preoperatively normal. 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 No recent signs of gout. Known GERD/gastritis. Symptoms are under good control. There are no side effects noted from the medication. she denies water brash, bitter or metallic taste, dysphagia, nausea, vomiting, hematemesis, melena, or black/tarry stools. Known urinary incontinence. Doing well on current medication. History of AAA. No symptoms. Echocardiogram performed preoperatively as part of cardiac clearance. General: No fever, chills, weight loss. HEENT: No sinus pain, ear pain, sore throat. Neck: No LAD. Lungs: No cough, sputum, pleuritic pain, hemoptysis, SOB. CV: No palpitation, orthopnea, PND, edema. GI: No abd pain, nausea, vomiting, diarrhea, constipation, melena, hematochezia. : No dysuria, frequency, hematuria. Skin: No rash or lesion. Neuro: No mental status changes, headache, focal neurologic complaints. Objective: Blood pressure 133/71, pulse 92, temperature 98.7 F (37.1 C), temperature source Temporal, resp. rate 16, height 1.626 m (5' 4 ), weight 98.4 kg (216 lb 14.9 oz), SpO2 94%. Results for orders placed or performed during the hospital encounter of 01/11/24 PROTIME-INR Result Value Ref Range PT 14.2 11.8 - 14.4 SEC INR 1.09 0.85 - 1.10 CBC, EDIF, PLATELET Result Value Ref Range WBC (WHITE BLOOD COUNT) 10.5 3.6 - 11.0 10*3/uL RBC 3.48 (L) 4.0 - 5.4 10*6/uL HEMOGLOBIN (HGB) 10.9 (L) 12.0 - 16.0 G/DL HEMATOCRIT (HCT) 33.3 (L) 36.0 - 48.0 % MEAN CELL VOLUME 95.7 80.0 - 100.0 FL Mean Cell HGB 31.4 26.0 - 35.0 PG MEAN CELL HGB CONCENTRATION 32.8 27.0 - 37.0 G/DL RBC DISTRIBUTION 14.3 11.5 - 14.5 % PLATELET COUNT 247 130 - 400 10*3/uL MEAN PLATELET VOLUME 8.2 7.4 - 11.0 FL DIFFERENTIAL TYPE AUTO DIFF % NEUTROPHILS 89.5 (H) 37.0 - 75.0 % LYMPHOCYTE 5.9 (L) 20.0 - 55.0 % MONOCYTE % 4.5 0.0 - 10.0 % EOSINOPHIL % 0.0 0.0 - 11.0 % BASOPHIL % 0.1 0.0 - 2.0 % Absolute Neutrophil Count 9.4 (H) 1.4 - 6.5 10*3/uL LYMPHOCYTES, ABSOLUTE 0.6 (L) 1.2 - 3.4 10*3/uL MONOCYTES, ABSOLUTE 0.5 0.0 - 0.7 10*3/uL ABSOLUTE EOSINOPHIL COUNT 0.0 0.0 - 0.7 10*3/uL ABSOLUTE BASOPHIL COUNT 0.0 0.0 - 0.2 10*3/uL BASIC METABOLIC PANEL Result Value Ref Range Glucose 179 (H) 70 - 100 MG/DL BUN 16 7 - 20 MG/DL CREATININE SERUM 0.70 0.70 - 1.20 MG/DL SODIUM 138 137 - 145 MMOL/L POTASSIUM 4.0 3.5 - 5.1 MMOL/L CHLORIDE 105 98 - 107 MMOL/L CARBON DIOXIDE (CO2) 24 22 - 30 MMOL/L ANION GAP 9 MMOL/L CALCIUM 9.1 8.4 - 10.2 MG/DL ESTIMATED GFR, NON AMER 85 ml/min/1.73sq.m ESTIMATED GFR, 103 ml/min/1.73sq.m GFR COMMENT Average GFR for 70+ years old = 75. CBC, EDIF, PLATELET Result Value Ref Range WBC (WHITE BLOOD COUNT) 10.0 3.6 - 11.0 10*3/uL RBC 3.31 (L) 4.0 - 5.4 10*6/uL HEMOGLOBIN (HGB) 10.6 (L) 12.0 - 16.0 G/DL HEMATOCRIT (HCT) 31.8 (L) 36.0 - 48.0 % MEAN CELL VOLUME 95.9 80.0 - 100.0 FL Mean Cell HGB 31.9 26.0 - 35.0 PG MEAN CELL HGB CONCENTRATION 33.2 27.0 - 37.0 G/DL RBC DISTRIBUTION 14.5 11.5 - 14.5 % PLATELET COUNT 228 130 - 400 10*3/uL MEAN PLATELET VOLUME 8.1 7.4 - 11.0 FL DIFFERENTIAL TYPE AUTO DIFF % NEUTROPHILS 85.8 (H) 37.0 - 75.0 % LYMPHOCYTE 5.9 (L) 20.0 - 55.0 % MONOCYTE % 8.3 0.0 - 10.0 % EOSINOPHIL % 0.0 0.0 - 11.0 % BASOPHIL % 0.0 0.0 - 2.0 % Absolute Neutrophil Count 8.6 (H) 1.4 - 6.5 10*3/uL LYMPHOCYTES, ABSOLUTE 0.6 (L) 1.2 - 3.4 10*3/uL MONOCYTES, ABSOLUTE 0.8 (H) 0.0 - 0.7 10*3/uL ABSOLUTE EOSINOPHIL COUNT 0.0 0.0 - 0.7 10*3/uL ABSOLUTE BASOPHIL COUNT 0.0 0.0 - 0.2 10*3/uL BASIC METABOLIC PANEL Result Value Ref Range Glucose 164 (H) 70 - 100 MG/DL BUN 19 7 - 20 MG/DL CREATININE SERUM 0.70 0.70 - 1.20 MG/DL SODIUM 137 137 - 145 MMOL/L POTASSIUM 4.2 3.5 - 5.1 MMOL/L CHLORIDE 107 98 - 107 MMOL/L CARBON DIOXIDE (CO2) 26 22 - 30 MMOL/L ANION GAP 4 MMOL/L CALCIUM 9.0 8.4 - 10.2 MG/DL ESTIMATED GFR, NON AMER 85 ml/min/1.73sq.m ESTIMATED GFR, 103 ml/min/1.73sq.m GFR COMMENT Average GFR for 70+ years old = 75. TROPONIN I, HIGH SENSITIVITY Result Value Ref Range TROPONIN I, HIGH SENSITIVITY 9 0 - 12 pg/mL TROPONIN I, HIGH SENSITIVITY Result Value Ref Range TROPONIN I, HIGH SENSITIVITY 10 0 - 12 pg/mL TROPONIN I, HIGH SENSITIVITY Result Value Ref Range TROPONIN I, HIGH SENSITIVITY 14 (H) 0 - 12 pg/mL CBC, EDIF, PLATELET Result Value Ref Range WBC (WHITE BLOOD COUNT) 9.9 3.6 - 11.0 10*3/uL RBC 3.35 (L) 4.0 - 5.4 10*6/uL HEMOGLOBIN (HGB) 10.5 (L) 12.0 - 16.0 G/DL HEMATOCRIT (HCT) 32.1 (L) 36.0 - 48.0 % MEAN CELL VOLUME 96.0 80.0 - 100.0 FL Mean Cell HGB 31.4 26.0 - 35.0 PG MEAN CELL HGB CONCENTRATION 32.8 27.0 - 37.0 G/DL RBC DISTRIBUTION 14.6 (H) 11.5 - 14.5 % PLATELET COUNT 226 130 - 400 10*3/uL MEAN PLATELET VOLUME 8.4 7.4 - 11.0 FL DIFFERENTIAL TYPE AUTO DIFF % NEUTROPHILS 77.4 (H) 37.0 - 75.0 % LYMPHOCYTE 11.0 (L) 20.0 - 55.0 % MONOCYTE % 10.8 (H) 0.0 - 10.0 % EOSINOPHIL % 0.5 0.0 - 11.0 % BASOPHIL % 0.3 0.0 - 2.0 % Absolute Neutrophil Count 7.6 (H) 1.4 - 6.5 10*3/uL LYMPHOCYTES, ABSOLUTE 1.1 (L) 1.2 - 3.4 10*3/uL MONOCYTES, ABSOLUTE 1.1 (H) 0.0 - 0.7 10*3/uL ABSOLUTE EOSINOPHIL COUNT 0.1 0.0 - 0.7 10*3/uL ABSOLUTE BASOPHIL COUNT 0.0 0.0 - 0.2 10*3/uL CBC, EDIF, PLATELET Result Value Ref Range WBC (WHITE BLOOD COUNT) 6.8 3.6 - 11.0 10*3/uL RBC 3.09 (L) 4.0 - 5.4 10*6/uL HEMOGLOBIN (HGB) 9.8 (L) 12.0 - 16.0 G/DL HEMATOCRIT (HCT) 29.2 (L) 36.0 - 48.0 % MEAN CELL VOLUME 94.6 80.0 - 100.0 FL Mean Cell HGB 31.8 26.0 - 35.0 PG MEAN CELL HGB CONCENTRATION 33.6 27.0 - 37.0 G/DL RBC DISTRIBUTION 13.9 11.5 - 14.5 % PLATELET COUNT 279 130 - 400 10*3/uL MEAN PLATELET VOLUME 7.9 7.4 - 11.0 FL DIFFERENTIAL TYPE AUTO DIFF % NEUTROPHILS 69.1 37.0 - 75.0 % LYMPHOCYTE 16.5 (L) 20.0 - 55.0 % MONOCYTE % 11.9 (H) 0.0 - 10.0 % EOSINOPHIL % 1.9 0.0 - 11.0 % BASOPHIL % 0.6 0.0 - 2.0 % Absolute Neutrophil Count 4.7 1.4 - 6.5 10*3/uL LYMPHOCYTES, ABSOLUTE 1.1 (L) 1.2 - 3.4 10*3/uL MONOCYTES, ABSOLUTE 0.8 (H) 0.0 - 0.7 10*3/uL ABSOLUTE EOSINOPHIL COUNT 0.1 0.0 - 0.7 10*3/uL ABSOLUTE BASOPHIL COUNT 0.0 0.0 - 0.2 10*3/uL RENAL FUNCTION PANEL Result Value Ref Range Glucose 106 (H) 70 - 100 MG/DL BUN 10 7 - 20 MG/DL CREATININE SERUM 0.51 (L) 0.70 - 1.20 MG/DL SODIUM 135 (L) 137 - 145 MMOL/L POTASSIUM 3.3 (L) 3.5 - 5.1 MMOL/L CHLORIDE 105 98 - 107 MMOL/L CARBON DIOXIDE (CO2) 29 22 - 30 MMOL/L Albumin 2.6 (L) 3.5 - 5.0 G/dl CALCIUM 8.2 (L) 8.4 - 10.2 MG/DL PHOSPHORUS 2.6 2.5 - 4.5 MG/DL ESTIMATED GFR, NON AMER 123 ml/min/1.73sq.m ESTIMATED GFR, 149 ml/min/1.73sq.m GFR COMMENT Average GFR for 70+ years old = 75. REPEAT ABO/RH (D) TYPING Result Value Ref Range ABO/RH(D) O POSITIVE SURGICAL PATHOLOGY REQUEST Result Value Ref Range SURG PATH RESULT Surgical Final Report Patient Name: CUATE GOODMAN [facility]. Rec. #: [id number] Physician: ERIK HEREDIA Specimen(s) Received Left femoral head Clinical / Pre-Operative Diagnosis Osteoarthritis of left hip unspecified osteoarthritis type Post-Operative Diagnosis Not provided Surgical Procedure Arthroplasty hip total latera approach Diagnosis: Left femoral head, Excision: -Consistent with degenerative joint disease Electronically Signed lks/01/13/2024 Khoa Vieyra DO Gross Description: The specimen is received in formalin, and labeled left femoral head, Cuate Goodman and date of 1940. The specimen consists of a femoral head and neck measuring 5.5 x 5 x 5 cm with articular cartilage degeneration. Sectioning reveals unremarkable bone. Hip Hop Artist sections are submitted in one cassette and placed in decalcification solution prior to processing. Billing Fee Code(s) A: [id number] HEENT: NC/AT, PERRLA, EOMI, fundi benign, external ears normal, OP normal. Neck: No LAD/thyromegaly. No JVD/bruit. Lungs: Clear to auscultation bilaterally. No wheezes, rales, ronchi. Heart: RRR. No S3/S4. Abdomen: Soft, NT/ND, normal bowel sounds, no HSM, no bruits. Extremities: No clubbing, cyanosis, edema. Normal pulses. Neurologic: CN II-XII intact. Strength/DTR's/sensation symmetric. Cerebellar function normal. Skin: No rash or suspicious lesions. Musculoskeletal: No edema, redness, warmth, deformities. Psychiatric: Alert and oriented. Affect and mood normal. Assessment and Plan: Postop day 6 total hip arthroplasty - pain medication, therapy, and anticoagulation per Orthopedic surgery. Full anticoagulation started. Awaiting insurance approval for swing bed. Right bundle branch block - monitor heart rhythm on telemetry. History of diastolic dysfunction - monitor fluid status closely. B12 deficiency - resume oral replacement as soon as discharged. History of DVT/PE - full anticoagulation started. Elevated blood pressure without diagnosis of hypertension - monitor blood pressures closely, BMP in the morning. Impaired fasting glucose - carb controlled diet and basic metabolic panel in the morning. No need for sliding scale insulin since hemoglobin A1c is normal. Elevated uric acid - continue allopurinol and monitor clinically for gout. GERD - continue proton pump inhibitor also for GI prophylaxis. Urinary incontinence - continue home medications. AAA - no acute management needed during hospitalization. Hypokalemia - replaced orally. Recheck in a.m.. 35 minutes total time. Luis Monte MD 01/17/2024 Medical consultation Patient is an 83-year-old female who presents for total hip arthroplasty. She is doing well postoperatively. Pain is poorly controlled. She has ambulated and voided. She denies chest pain, palpitations, cough, sputum, shortness of breath, vomiting, lower extremity edema. Patient has agreed to swing bed. Awaiting insurance approval. She did have an episode of chest pain after I rounded in the morning. Stat EKG ordered and nonacute. Troponin ordered and normal. Does have a history of reflux. Has been feeling anxious during the hospitalization. Known right bundle branch block. Preop EKG at baseline. Known diastolic dysfunction. Director Of Services did clear her for surgery. She had a preoperative echocardiogram which is not available to me. Known B12 deficiency on oral replacement. History of DVT/PE on anticoagulation. Elevated blood pressure without formal diagnosis of hypertension. Not on any medication currently. Impaired fasting glucose. Watching diet only. Hemoglobin A1c preoperatively normal. 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 No recent signs of gout. Known GERD/gastritis. Symptoms are under good control. There are no side effects noted from the medication. she denies water brash, bitter or metallic taste, dysphagia, nausea, vomiting, hematemesis, melena, or black/tarry stools. Known urinary incontinence. Doing well on current medication. History of AAA. No symptoms. Echocardiogram performed preoperatively as part of cardiac clearance. General: No fever, chills, weight loss. HEENT: No sinus pain, ear pain, sore throat. Neck: No LAD. Lungs: No cough, sputum, pleuritic pain, hemoptysis, SOB. CV: No palpitation, orthopnea, PND, edema. GI: No abd pain, nausea, vomiting, diarrhea, constipation, melena, hematochezia. : No dysuria, frequency, hematuria. Skin: No rash or lesion. Neuro: No mental status changes, headache, focal neurologic complaints. Objective: Blood pressure 143/69, pulse 80, temperature 98.7 F (37.1 C), temperature source Temporal, resp. rate 17, height 1.626 m (5' 4 ), weight 98.4 kg (216 lb 14.9 oz), SpO2 95%. Results for orders placed or performed during the hospital encounter of 01/11/24 PROTIME-INR Result Value Ref Range PT 14.2 11.8 - 14.4 SEC INR 1.09 0.85 - 1.10 CBC, EDIF, PLATELET Result Value Ref Range WBC (WHITE BLOOD COUNT) 10.5 3.6 - 11.0 10*3/uL RBC 3.48 (L) 4.0 - 5.4 10*6/uL HEMOGLOBIN (HGB) 10.9 (L) 12.0 - 16.0 G/DL HEMATOCRIT (HCT) 33.3 (L) 36.0 - 48.0 % MEAN CELL VOLUME 95.7 80.0 - 100.0 FL Mean Cell HGB 31.4 26.0 - 35.0 PG MEAN CELL HGB CONCENTRATION 32.8 27.0 - 37.0 G/DL RBC DISTRIBUTION 14.3 11.5 - 14.5 % PLATELET COUNT 247 130 - 400 10*3/uL MEAN PLATELET VOLUME 8.2 7.4 - 11.0 FL DIFFERENTIAL TYPE AUTO DIFF % NEUTROPHILS 89.5 (H) 37.0 - 75.0 % LYMPHOCYTE 5.9 (L) 20.0 - 55.0 % MONOCYTE % 4.5 0.0 - 10.0 % EOSINOPHIL % 0.0 0.0 - 11.0 % BASOPHIL % 0.1 0.0 - 2.0 % Absolute Neutrophil Count 9.4 (H) 1.4 - 6.5 10*3/uL LYMPHOCYTES, ABSOLUTE 0.6 (L) 1.2 - 3.4 10*3/uL MONOCYTES, ABSOLUTE 0.5 0.0 - 0.7 10*3/uL ABSOLUTE EOSINOPHIL COUNT 0.0 0.0 - 0.7 10*3/uL ABSOLUTE BASOPHIL COUNT 0.0 0.0 - 0.2 10*3/uL BASIC METABOLIC PANEL Result Value Ref Range Glucose 179 (H) 70 - 100 MG/DL BUN 16 7 - 20 MG/DL CREATININE SERUM 0.70 0.70 - 1.20 MG/DL SODIUM 138 137 - 145 MMOL/L POTASSIUM 4.0 3.5 - 5.1 MMOL/L CHLORIDE 105 98 - 107 MMOL/L CARBON DIOXIDE (CO2) 24 22 - 30 MMOL/L ANION GAP 9 MMOL/L CALCIUM 9.1 8.4 - 10.2 MG/DL ESTIMATED GFR, NON AMER 85 ml/min/1.73sq.m ESTIMATED GFR, 103 ml/min/1.73sq.m GFR COMMENT Average GFR for 70+ years old = 75. CBC, EDIF, PLATELET Result Value Ref Range WBC (WHITE BLOOD COUNT) 10.0 3.6 - 11.0 10*3/uL RBC 3.31 (L) 4.0 - 5.4 10*6/uL HEMOGLOBIN (HGB) 10.6 (L) 12.0 - 16.0 G/DL HEMATOCRIT (HCT) 31.8 (L) 36.0 - 48.0 % MEAN CELL VOLUME 95.9 80.0 - 100.0 FL Mean Cell HGB 31.9 26.0 - 35.0 PG MEAN CELL HGB CONCENTRATION 33.2 27.0 - 37.0 G/DL RBC DISTRIBUTION 14.5 11.5 - 14.5 % PLATELET COUNT 228 130 - 400 10*3/uL MEAN PLATELET VOLUME 8.1 7.4 - 11.0 FL DIFFERENTIAL TYPE AUTO DIFF % NEUTROPHILS 85.8 (H) 37.0 - 75.0 % LYMPHOCYTE 5.9 (L) 20.0 - 55.0 % MONOCYTE % 8.3 0.0 - 10.0 % EOSINOPHIL % 0.0 0.0 - 11.0 % BASOPHIL % 0.0 0.0 - 2.0 % Absolute Neutrophil Count 8.6 (H) 1.4 - 6.5 10*3/uL LYMPHOCYTES, ABSOLUTE 0.6 (L) 1.2 - 3.4 10*3/uL MONOCYTES, ABSOLUTE 0.8 (H) 0.0 - 0.7 10*3/uL ABSOLUTE EOSINOPHIL COUNT 0.0 0.0 - 0.7 10*3/uL ABSOLUTE BASOPHIL COUNT 0.0 0.0 - 0.2 10*3/uL BASIC METABOLIC PANEL Result Value Ref Range Glucose 164 (H) 70 - 100 MG/DL BUN 19 7 - 20 MG/DL CREATININE SERUM 0.70 0.70 - 1.20 MG/DL SODIUM 137 137 - 145 MMOL/L POTASSIUM 4.2 3.5 - 5.1 MMOL/L CHLORIDE 107 98 - 107 MMOL/L CARBON DIOXIDE (CO2) 26 22 - 30 MMOL/L ANION GAP 4 MMOL/L CALCIUM 9.0 8.4 - 10.2 MG/DL ESTIMATED GFR, NON AMER 85 ml/min/1.73sq.m ESTIMATED GFR, 103 ml/min/1.73sq.m GFR COMMENT Average GFR for 70+ years old = 75. TROPONIN I, HIGH SENSITIVITY Result Value Ref Range TROPONIN I, HIGH SENSITIVITY 9 0 - 12 pg/mL TROPONIN I, HIGH SENSITIVITY Result Value Ref Range TROPONIN I, HIGH SENSITIVITY 10 0 - 12 pg/mL TROPONIN I, HIGH SENSITIVITY Result Value Ref Range TROPONIN I, HIGH SENSITIVITY 14 (H) 0 - 12 pg/mL REPEAT ABO/RH (D) TYPING Result Value Ref Range ABO/RH(D) O POSITIVE HEENT: NC/AT, PERRLA, EOMI, fundi benign, external ears normal, OP normal. Neck: No LAD/thyromegaly. No JVD/bruit. Lungs: Clear to auscultation bilaterally. No wheezes, rales, ronchi. Heart: RRR. No S3/S4. Abdomen: Soft, NT/ND, normal bowel sounds, no HSM, no bruits. Extremities: No clubbing, cyanosis, edema. Normal pulses. Neurologic: CN II-XII intact. Strength/DTR's/sensation symmetric. Cerebellar function normal. Skin: No rash or suspicious lesions. Musculoskeletal: No edema, redness, warmth, deformities. Psychiatric: Alert and oriented. Affect and mood normal. Assessment and Plan: Postop day 2 total hip arthroplasty - pain medication, therapy, and anticoagulation per Orthopedic surgery. Full anticoagulation as soon as safe. Awaiting approval for swing bed. Right bundle branch block - monitor heart rhythm on telemetry. History of diastolic dysfunction - monitor fluid status closely. B12 deficiency - resume oral replacement as soon as discharged. History of DVT/PE - full anticoagulation as soon as safe postoperatively. Elevated blood pressure without diagnosis of hypertension - monitor blood pressures closely, BMP in the morning. Impaired fasting glucose - carb controlled diet and basic metabolic panel in the morning. No need for sliding scale insulin since hemoglobin A1c is normal. Elevated uric acid - continue allopurinol and monitor clinically for gout. GERD - continue proton pump inhibitor also for GI prophylaxis. Urinary incontinence - continue home medications. AAA - no acute management needed during hospitalization. Chest pain - initial EKG and troponin normal. She is currently pain-free. For our repeat troponin also normal. Continue to monitor clinically. 35 minutes total time. Luis Monte MD 01/13/2024 Medical consultation Patient is an 83-year-old female who presents for total hip arthroplasty. She is doing well postoperatively. Pain is poorly controlled. She has ambulated and voided. She denies chest pain, palpitations, cough, sputum, shortness of breath, vomiting, lower extremity edema. Nausea without vtg. Concerned about going home. Known right bundle branch block. Preop EKG at baseline. Known diastolic dysfunction. Director Of Services did clear her for surgery. She had a preoperative echocardiogram which is not available to me. Known B12 deficiency on oral replacement. History of DVT/PE on anticoagulation. Elevated blood pressure without formal diagnosis of hypertension. Not on any medication currently. Impaired fasting glucose. Watching diet only. Hemoglobin A1c preoperatively normal. 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 No recent signs of gout. Known GERD/gastritis. Symptoms are under good control. There are no side effects noted from the medication. she denies water brash, bitter or metallic taste, dysphagia, nausea, vomiting, hematemesis, melena, or black/tarry stools. Known urinary incontinence. Doing well on current medication. History of AAA. No symptoms. Echocardiogram performed preoperatively as part of cardiac clearance. General: No fever, chills, weight loss. HEENT: No sinus pain, ear pain, sore throat. Neck: No LAD. Lungs: No cough, sputum, pleuritic pain, hemoptysis, SOB. CV: No chest pain, palpitation, orthopnea, PND, edema. GI: No abd pain, nausea, vomiting, diarrhea, constipation, melena, hematochezia. : No dysuria, frequency, hematuria. Skin: No rash or lesion. Neuro: No mental status changes, headache, focal neurologic complaints. Objective: Blood pressure 118/62, pulse 76, temperature 97.2 F (36.2 C), temperature source Temporal, resp. rate 16, height 1.626 m (5' 4 ), SpO2 93%. Results for orders placed or performed during the hospital encounter of 01/11/24 PROTIME-INR Result Value Ref Range PT 14.2 11.8 - 14.4 SEC INR 1.09 0.85 - 1.10 CBC, EDIF, PLATELET Result Value Ref Range WBC (WHITE BLOOD COUNT) 10.5 3.6 - 11.0 10*3/uL RBC 3.48 (L) 4.0 - 5.4 10*6/uL HEMOGLOBIN (HGB) 10.9 (L) 12.0 - 16.0 G/DL HEMATOCRIT (HCT) 33.3 (L) 36.0 - 48.0 % MEAN CELL VOLUME 95.7 80.0 - 100.0 FL Mean Cell HGB 31.4 26.0 - 35.0 PG MEAN CELL HGB CONCENTRATION 32.8 27.0 - 37.0 G/DL RBC DISTRIBUTION 14.3 11.5 - 14.5 % PLATELET COUNT 247 130 - 400 10*3/uL MEAN PLATELET VOLUME 8.2 7.4 - 11.0 FL DIFFERENTIAL TYPE AUTO DIFF % NEUTROPHILS 89.5 (H) 37.0 - 75.0 % LYMPHOCYTE 5.9 (L) 20.0 - 55.0 % MONOCYTE % 4.5 0.0 - 10.0 % EOSINOPHIL % 0.0 0.0 - 11.0 % BASOPHIL % 0.1 0.0 - 2.0 % Absolute Neutrophil Count 9.4 (H) 1.4 - 6.5 10*3/uL LYMPHOCYTES, ABSOLUTE 0.6 (L) 1.2 - 3.4 10*3/uL MONOCYTES, ABSOLUTE 0.5 0.0 - 0.7 10*3/uL ABSOLUTE EOSINOPHIL COUNT 0.0 0.0 - 0.7 10*3/uL ABSOLUTE BASOPHIL COUNT 0.0 0.0 - 0.2 10*3/uL BASIC METABOLIC PANEL Result Value Ref Range Glucose 179 (H) 70 - 100 MG/DL BUN 16 7 - 20 MG/DL CREATININE SERUM 0.70 0.70 - 1.20 MG/DL SODIUM 138 137 - 145 MMOL/L POTASSIUM 4.0 3.5 - 5.1 MMOL/L CHLORIDE 105 98 - 107 MMOL/L CARBON DIOXIDE (CO2) 24 22 - 30 MMOL/L ANION GAP 9 MMOL/L CALCIUM 9.1 8.4 - 10.2 MG/DL ESTIMATED GFR, NON AMER 85 ml/min/1.73sq.m ESTIMATED GFR, 103 ml/min/1.73sq.m GFR COMMENT Average GFR for 70+ years old = 75. REPEAT ABO/RH (D) TYPING Result Value Ref Range ABO/RH(D) O POSITIVE HEENT: NC/AT, PERRLA, EOMI, fundi benign, external ears normal, OP normal. Neck: No LAD/thyromegaly. No JVD/bruit. Lungs: Clear to auscultation bilaterally. No wheezes, rales, ronchi. Heart: RRR. No S3/S4. Abdomen: Soft, NT/ND, normal bowel sounds, no HSM, no bruits. Extremities: No clubbing, cyanosis, edema. Normal pulses. Neurologic: CN II-XII intact. Strength/DTR's/sensation symmetric. Cerebellar function normal. Skin: No rash or suspicious lesions. Musculoskeletal: No edema, redness, warmth, deformities. Psychiatric: Alert and oriented. Affect and mood normal. Assessment and Plan: Postop day 1 total hip arthroplasty - pain medication, therapy, and anticoagulation per Orthopedic surgery. Full anticoagulation as soon as safe. Discussing with patient placement. Right bundle branch block - monitor heart rhythm on telemetry. History of diastolic dysfunction - monitor fluid status closely. B12 deficiency - resume oral replacement as soon as discharged. History of DVT/PE - full anticoagulation as soon as safe postoperatively. Elevated blood pressure without diagnosis of hypertension - monitor blood pressures closely, BMP in the morning. Impaired fasting glucose - carb controlled diet and basic metabolic panel in the morning. No need for sliding scale insulin since hemoglobin A1c is normal. Elevated uric acid - continue allopurinol and monitor clinically for gout. GERD - continue proton pump inhibitor also for GI prophylaxis. Urinary incontinence - continue home medications. AAA - no acute management needed during hospitalization. 35 minutes total time. Luis Monte MD 01/12/2024 Associated Order(s): IP CONSULT TO GENERAL MEDICINE Medical consultation Patient is an 83-year-old female who presents for total hip arthroplasty. 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 Preop testing notable for an INR of 1.47, a blood sugar of 115, a hemoglobin A1c of 5.7, a urinalysis positive for leukocyte esterase and nitrites with a positive culture status post treatment and methicillin sensitive staph aureus also status post treatment. She is doing well postoperatively. Pain is adequately controlled. She has ambulated but has not voided. She denies chest pain, palpitations, cough, sputum, shortness of breath, nausea, vomiting, lower extremity edema. Known right bundle branch block. Preop EKG at baseline. Known diastolic dysfunction. Director Of Services did clear her for surgery. She had a preoperative echocardiogram which is not available to me. Known B12 deficiency on oral replacement. History of DVT/PE on anticoagulation. Elevated blood pressure without formal diagnosis of hypertension. Not on any medication currently. Impaired fasting glucose. Watching diet only. Hemoglobin A1c preoperatively normal. 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 No recent signs of gout. Known GERD/gastritis. Symptoms are under good control. There are no side effects noted from the medication. she denies water brash, bitter or metallic taste, dysphagia, nausea, vomiting, hematemesis, melena, or black/tarry stools. Known urinary incontinence. Doing well on current medication. History of AAA. No symptoms. Echocardiogram performed preoperatively as part of cardiac clearance. General: No fever, chills, weight loss. HEENT: No sinus pain, ear pain, sore throat. Neck: No LAD. Lungs: No cough, sputum, pleuritic pain, hemoptysis, SOB. CV: No chest pain, palpitation, orthopnea, PND, edema. GI: No abd pain, nausea, vomiting, diarrhea, constipation, melena, hematochezia. : No dysuria, frequency, hematuria. Skin: No rash or lesion. Neuro: No mental status changes, headache, focal neurologic complaints. Past Medical History: Diagnosis Date Aortic aneurysm Arthritis Deep vein thrombosis (DVT) GERD (gastroesophageal reflux disease) Past Surgical History: Procedure Laterality Date NEPHRECTOMY Right 1979 CHOLECYSTECTOMY HIP REPLACEMENT Right HYSTERECTOMY KNEE REPLACEMENT Bilateral left x 2 LITHOTRIPSY multiple Social History Socioeconomic History Marital status: Single Spouse name: Not on file Number of children: Not on file Years of education: Not on file Highest education level: Not on file Occupational History Not on file Tobacco Use Smoking status: Never Smokeless tobacco: Never Substance and Sexual Activity Alcohol use: Never Drug use: Never Sexual activity: Not on file Other Topics Concern Not on file Social History Narrative Not on file Social Determinants of Health Financial Resource Strain: Not on file Food Insecurity: Not on file Transportation Needs: Not on file Physical Activity: Not on file Stress: Not on file Social Connections: Not on file Intimate Partner Violence: Unknown (09/09/2023) Received from [facility] Safety & Environment Fear of Current or Ex-Partner: Not on file Emotionally Abused: Not on file Physically Abused: Not on file Sexually Abused: Not on file Physically or Sexually Abused: Not on file Housing Stability: Not on file Allergies Allergen Reactions Morphine Nausea and Vomiting Other Reaction(s): GI intolerance Other Reaction(s): Unknown Oxycodone Nausea and Vomiting Other Reaction(s): GI intolerance Other Reaction(s): Unknown Penicillins Hives Objective: Blood pressure 146/67, pulse 80, temperature 98 F (36.7 C), resp. rate 15, height 1.626 m (5' 4 ), SpO2 99%. Results for orders placed or performed during the hospital encounter of 01/11/24 PROTIME-INR Result Value Ref Range PT 14.2 11.8 - 14.4 SEC INR 1.09 0.85 - 1.10 REPEAT ABO/RH (D) TYPING Result Value Ref Range ABO/RH(D) O POSITIVE HEENT: NC/AT, PERRLA, EOMI, fundi benign, external ears normal, OP normal. Neck: No LAD/thyromegaly. No JVD/bruit. Lungs: Clear to auscultation bilaterally. No wheezes, rales, ronchi. Heart: RRR. No S3/S4. Abdomen: Soft, NT/ND, normal bowel sounds, no HSM, no bruits. Extremities: No clubbing, cyanosis, edema. Normal pulses. Neurologic: CN II-XII intact. Strength/DTR's/sensation symmetric. Cerebellar function normal. Skin: No rash or suspicious lesions. Musculoskeletal: No edema, redness, warmth, deformities. Psychiatric: Alert and oriented. Affect and mood normal. Assessment and Plan: Postop day 0 total hip arthroplasty - pain medication, therapy, and anticoagulation per Orthopedic surgery. Full anticoagulation as soon as safe. Right bundle branch block - monitor heart rhythm on telemetry. History of diastolic dysfunction - monitor fluid status closely. B12 deficiency - resume oral replacement as soon as discharged. History of DVT/PE - full anticoagulation as soon as safe postoperatively. Elevated blood pressure without diagnosis of hypertension - monitor blood pressures closely, BMP in the morning. Impaired fasting glucose - carb controlled diet and basic metabolic panel in the morning. No need for sliding scale insulin since hemoglobin A1c is normal. Elevated uric acid - continue allopurinol and monitor clinically for gout. GERD - continue proton pump inhibitor also for GI prophylaxis. Urinary incontinence - continue home medications. AAA - no acute management needed during hospitalization. 55 minutes total time. Luis Monte MD 01/11/2024 documented in this encounter [facility] 01-18-2024 Nurse Note Laying in recliner upon this RN arrival to patient room, resting quietly with eyes closed, respirations even and unlabored. Arouses easily to voice, appropriate to conversation. Shift assessment initiated, detailed in coordinating flow sheets. Denies additional needs at this time, call light in reach, recliner wheels locked. [facility] 01-18-2024 Plan of care note Problem: Adult Inpatient Plan of Care Goal: Plan of Care Review Outcome: Progressing Goal: Patient-Specific Goal (Individualized) Outcome: Progressing Goal: Absence of Hospital-Acquired Illness or Injury Outcome: Progressing Goal: Optimal Comfort and Wellbeing Outcome: Progressing Goal: Readiness for Transition of Care Outcome: Progressing Problem: Skin Injury Risk Increased Goal: Skin Health and Integrity Outcome: Progressing [facility] 01-18-2024 Nurse Note Patient's assessment remains unchanged from previous assessment this shift, any exceptions noted in flowsheets. Patient resting comfortably in chair, declines any needs at this time. Call light within reach,chair alarm active [facility] 01-17-2024 Consult note Formatting of th is note is different from the original. Medical consultation Patient is an 83-year-old female who presents for total hip arthroplasty. She is doing well postoperatively. Pain is well controlled. She has ambulated and voided. She denies chest pain, palpitations, cough, sputum, shortness of breath, vomiting, lower extremity edema. Patient has agreed to swing bed. Awaiting insurance approval. Known right bundle branch block. Preop EKG at baseline. Known diastolic dysfunction. Director Of Services did clear her for surgery. She had a preoperative echocardiogram which is not available to me. Known B12 deficiency on oral replacement. History of DVT/PE on anticoagulation. Elevated blood pressure without formal diagnosis of hypertension. Not on any medication currently. Impaired fasting glucose. Watching diet only. Hemoglobin A1c preoperatively normal. 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 No recent signs of gout. Known GERD/gastritis. Symptoms are under good control. There are no side effects noted from the medication. she denies water brash, bitter or metallic taste, dysphagia, nausea, vomiting, hematemesis, melena, or black/tarry stools. Known urinary incontinence. Doing well on current medication. History of AAA. No symptoms. Echocardiogram performed preoperatively as part of cardiac clearance. General: No fever, chills, weight loss. HEENT: No sinus pain, ear pain, sore throat. Neck: No LAD. Lungs: No cough, sputum, pleuritic pain, hemoptysis, SOB. CV: No palpitation, orthopnea, PND, edema. GI: No abd pain, nausea, vomiting, diarrhea, constipation, melena, hematochezia. : No dysuria, frequency, hematuria. Skin: No rash or lesion. Neuro: No mental status changes, headache, focal neurologic complaints. Objective: Blood pressure 133/71, pulse 92, temperature 98.7 F (37.1 C), temperature source Temporal, resp. rate 16, height 1.626 m (5' 4 ), weight 98.4 kg (216 lb 14.9 oz), SpO2 94%. Results for orders placed or performed during the hospital encounter of 01/11/24 PROTIME-INR Result Value Ref Range PT 14.2 11.8 - 14.4 SEC INR 1.09 0.85 - 1.10 CBC, EDIF, PLATELET Result Value Ref Range WBC (WHITE BLOOD COUNT) 10.5 3.6 - 11.0 10*3/uL RBC 3.48 (L) 4.0 - 5.4 10*6/uL HEMOGLOBIN (HGB) 10.9 (L) 12.0 - 16.0 G/DL HEMATOCRIT (HCT) 33.3 (L) 36.0 - 48.0 % MEAN CELL VOLUME 95.7 80.0 - 100.0 FL Mean Cell HGB 31.4 26.0 - 35.0 PG MEAN CELL HGB CONCENTRATION 32.8 27.0 - 37.0 G/DL RBC DISTRIBUTION 14.3 11.5 - 14.5 % PLATELET COUNT 247 130 - 400 10*3/uL MEAN PLATELET VOLUME 8.2 7.4 - 11.0 FL DIFFERENTIAL TYPE AUTO DIFF % NEUTROPHILS 89.5 (H) 37.0 - 75.0 % LYMPHOCYTE 5.9 (L) 20.0 - 55.0 % MONOCYTE % 4.5 0.0 - 10.0 % EOSINOPHIL % 0.0 0.0 - 11.0 % BASOPHIL % 0.1 0.0 - 2.0 % Absolute Neutrophil Count 9.4 (H) 1.4 - 6.5 10*3/uL LYMPHOCYTES, ABSOLUTE 0.6 (L) 1.2 - 3.4 10*3/uL MONOCYTES, ABSOLUTE 0.5 0.0 - 0.7 10*3/uL ABSOLUTE EOSINOPHIL COUNT 0.0 0.0 - 0.7 10*3/uL ABSOLUTE BASOPHIL COUNT 0.0 0.0 - 0.2 10*3/uL BASIC METABOLIC PANEL Result Value Ref Range Glucose 179 (H) 70 - 100 MG/DL BUN 16 7 - 20 MG/DL CREATININE SERUM 0.70 0.70 - 1.20 MG/DL SODIUM 138 137 - 145 MMOL/L POTASSIUM 4.0 3.5 - 5.1 MMOL/L CHLORIDE 105 98 - 107 MMOL/L CARBON DIOXIDE (CO2) 24 22 - 30 MMOL/L ANION GAP 9 MMOL/L CALCIUM 9.1 8.4 - 10.2 MG/DL ESTIMATED GFR, NON AMER 85 ml/min/1.73sq.m ESTIMATED GFR, 103 ml/min/1.73sq.m GFR COMMENT Average GFR for 70+ years old = 75. CBC, EDIF, PLATELET Result Value Ref Range WBC (WHITE BLOOD COUNT) 10.0 3.6 - 11.0 10*3/uL RBC 3.31 (L) 4.0 - 5.4 10*6/uL HEMOGLOBIN (HGB) 10.6 (L) 12.0 - 16.0 G/DL HEMATOCRIT (HCT) 31.8 (L) 36.0 - 48.0 % MEAN CELL VOLUME 95.9 80.0 - 100.0 FL Mean Cell HGB 31.9 26.0 - 35.0 PG MEAN CELL HGB CONCENTRATION 33.2 27.0 - 37.0 G/DL RBC DISTRIBUTION 14.5 11.5 - 14.5 % PLATELET COUNT 228 130 - 400 10*3/uL MEAN PLATELET VOLUME 8.1 7.4 - 11.0 FL DIFFERENTIAL TYPE AUTO DIFF % NEUTROPHILS 85.8 (H) 37.0 - 75.0 % LYMPHOCYTE 5.9 (L) 20.0 - 55.0 % MONOCYTE % 8.3 0.0 - 10.0 % EOSINOPHIL % 0.0 0.0 - 11.0 % BASOPHIL % 0.0 0.0 - 2.0 % Absolute Neutrophil Count 8.6 (H) 1.4 - 6.5 10*3/uL LYMPHOCYTES, ABSOLUTE 0.6 (L) 1.2 - 3.4 10*3/uL MONOCYTES, ABSOLUTE 0.8 (H) 0.0 - 0.7 10*3/uL ABSOLUTE EOSINOPHIL COUNT 0.0 0.0 - 0.7 10*3/uL ABSOLUTE BASOPHIL COUNT 0.0 0.0 - 0.2 10*3/uL BASIC METABOLIC PANEL Result Value Ref Range Glucose 164 (H) 70 - 100 MG/DL BUN 19 7 - 20 MG/DL CREATININE SERUM 0.70 0.70 - 1.20 MG/DL SODIUM 137 137 - 145 MMOL/L POTASSIUM 4.2 3.5 - 5.1 MMOL/L CHLORIDE 107 98 - 107 MMOL/L CARBON DIOXIDE (CO2) 26 22 - 30 MMOL/L ANION GAP 4 MMOL/L CALCIUM 9.0 8.4 - 10.2 MG/DL ESTIMATED GFR, NON AMER 85 ml/min/1.73sq.m ESTIMATED GFR, 103 ml/min/1.73sq.m GFR COMMENT Average GFR for 70+ years old = 75. TROPONIN I, HIGH SENSITIVITY Result Value Ref Range TROPONIN I, HIGH SENSITIVITY 9 0 - 12 pg/mL TROPONIN I, HIGH SENSITIVITY Result Value Ref Range TROPONIN I, HIGH SENSITIVITY 10 0 - 12 pg/mL TROPONIN I, HIGH SENSITIVITY Result Value Ref Range TROPONIN I, HIGH SENSITIVITY 14 (H) 0 - 12 pg/mL CBC, EDIF, PLATELET Result Value Ref Range WBC (WHITE BLOOD COUNT) 9.9 3.6 - 11.0 10*3/uL RBC 3.35 (L) 4.0 - 5.4 10*6/uL HEMOGLOBIN (HGB) 10.5 (L) 12.0 - 16.0 G/DL HEMATOCRIT (HCT) 32.1 (L) 36.0 - 48.0 % MEAN CELL VOLUME 96.0 80.0 - 100.0 FL Mean Cell HGB 31.4 26.0 - 35.0 PG MEAN CELL HGB CONCENTRATION 32.8 27.0 - 37.0 G/DL RBC DISTRIBUTION 14.6 (H) 11.5 - 14.5 % PLATELET COUNT 226 130 - 400 10*3/uL MEAN PLATELET VOLUME 8.4 7.4 - 11.0 FL DIFFERENTIAL TYPE AUTO DIFF % NEUTROPHILS 77.4 (H) 37.0 - 75.0 % LYMPHOCYTE 11.0 (L) 20.0 - 55.0 % MONOCYTE % 10.8 (H) 0.0 - 10.0 % EOSINOPHIL % 0.5 0.0 - 11.0 % BASOPHIL % 0.3 0.0 - 2.0 % Absolute Neutrophil Count 7.6 (H) 1.4 - 6.5 10*3/uL LYMPHOCYTES, ABSOLUTE 1.1 (L) 1.2 - 3.4 10*3/uL MONOCYTES, ABSOLUTE 1.1 (H) 0.0 - 0.7 10*3/uL ABSOLUTE EOSINOPHIL COUNT 0.1 0.0 - 0.7 10*3/uL ABSOLUTE BASOPHIL COUNT 0.0 0.0 - 0.2 10*3/uL CBC, EDIF, PLATELET Result Value Ref Range WBC (WHITE BLOOD COUNT) 6.8 3.6 - 11.0 10*3/uL RBC 3.09 (L) 4.0 - 5.4 10*6/uL HEMOGLOBIN (HGB) 9.8 (L) 12.0 - 16.0 G/DL HEMATOCRIT (HCT) 29.2 (L) 36.0 - 48.0 % MEAN CELL VOLUME 94.6 80.0 - 100.0 FL Mean Cell HGB 31.8 26.0 - 35.0 PG MEAN CELL HGB CONCENTRATION 33.6 27.0 - 37.0 G/DL RBC DISTRIBUTION 13.9 11.5 - 14.5 % PLATELET COUNT 279 130 - 400 10*3/uL MEAN PLATELET VOLUME 7.9 7.4 - 11.0 FL DIFFERENTIAL TYPE AUTO DIFF % NEUTROPHILS 69.1 37.0 - 75.0 % LYMPHOCYTE 16.5 (L) 20.0 - 55.0 % MONOCYTE % 11.9 (H) 0.0 - 10.0 % EOSINOPHIL % 1.9 0.0 - 11.0 % BASOPHIL % 0.6 0.0 - 2.0 % Absolute Neutrophil Count 4.7 1.4 - 6.5 10*3/uL LYMPHOCYTES, ABSOLUTE 1.1 (L) 1.2 - 3.4 10*3/uL MONOCYTES, ABSOLUTE 0.8 (H) 0.0 - 0.7 10*3/uL ABSOLUTE EOSINOPHIL COUNT 0.1 0.0 - 0.7 10*3/uL ABSOLUTE BASOPHIL COUNT 0.0 0.0 - 0.2 10*3/uL RENAL FUNCTION PANEL Result Value Ref Range Glucose 106 (H) 70 - 100 MG/DL BUN 10 7 - 20 MG/DL CREATININE SERUM 0.51 (L) 0.70 - 1.20 MG/DL SODIUM 135 (L) 137 - 145 MMOL/L POTASSIUM 3.3 (L) 3.5 - 5.1 MMOL/L CHLORIDE 105 98 - 107 MMOL/L CARBON DIOXIDE (CO2) 29 22 - 30 MMOL/L Albumin 2.6 (L) 3.5 - 5.0 G/dl CALCIUM 8.2 (L) 8.4 - 10.2 MG/DL PHOSPHORUS 2.6 2.5 - 4.5 MG/DL ESTIMATED GFR, NON AMER 123 ml/min/1.73sq.m ESTIMATED GFR, 149 ml/min/1.73sq.m GFR COMMENT Average GFR for 70+ years old = 75. REPEAT ABO/RH (D) TYPING Result Value Ref Range ABO/RH(D) O POSITIVE SURGICAL PATHOLOGY REQUEST Result Value Ref Range SURG PATH RESULT Surgical Final Report Patient Name: CUATE GOODMAN [facility]. Rec. #: [id number] Physician: ERIK HEREDIA Specimen(s) Received Left femoral head Clinical / Pre-Operative Diagnosis Osteoarthritis of left hip unspecified osteoarthritis type Post-Operative Diagnosis Not provided Surgical Procedure Arthroplasty hip total latera approach Diagnosis: Left femoral head, Excision: -Consistent with degenerative joint disease Electronically Signed lks/01/13/2024 Khoa Vieyra DO Gross Description: The specimen is received in formalin, and labeled left femoral head, Cuate Goodman and date of 1940. The specimen consists of a femoral head and neck measuring 5.5 x 5 x 5 cm with articular cartilage degeneration. Sectioning reveals unremarkable bone. Hip Hop Artist sections are submitted in one cassette and placed in decalcification solution prior to processing. Billing Fee Code(s) A: [id number] HEENT: NC/AT, PERRLA, EOMI, fundi benign, external ears normal, OP normal. Neck: No LAD/thyromegaly. No JVD/bruit. Lungs: Clear to auscultation bilaterally. No wheezes, rales, ronchi. Heart: RRR. No S3/S4. Abdomen: Soft, NT/ND, normal bowel sounds, no HSM, no bruits. Extremities: No clubbing, cyanosis, edema. Normal pulses. Neurologic: CN II-XII intact. Strength/DTR's/sensation symmetric. Cerebellar function normal. Skin: No rash or suspicious lesions. Musculoskeletal: No edema, redness, warmth, deformities. Psychiatric: Alert and oriented. Affect and mood normal. Assessment and Plan: Postop day 6 total hip arthroplasty - pain medication, therapy, and anticoagulation per Orthopedic surgery. Full anticoagulation started. Awaiting insurance approval for swing bed. Right bundle branch block - monitor heart rhythm on telemetry. History of diastolic dysfunction - monitor fluid status closely. B12 deficiency - resume oral replacement as soon as discharged. History of DVT/PE - full anticoagulation started. Elevated blood pressure without diagnosis of hypertension - monitor blood pressures closely, BMP in the morning. Impaired fasting glucose - carb controlled diet and basic metabolic panel in the morning. No need for sliding scale insulin since hemoglobin A1c is normal. Elevated uric acid - continue allopurinol and monitor clinically for gout. GERD - continue proton pump inhibitor also for GI prophylaxis. Urinary incontinence - continue home medications. AAA - no acute management needed during hospitalization. Hypokalemia - replaced orally. Recheck in a.m.. 35 minutes total time. Luis Monte MD 01/17/2024 [facility] 01-17-2024 Nurse Note The top of the right foot is no longer red. Cuate has brisk cap refill on both lower extremities. An avril wrap was applied to Cuate right lower extremity from the toes to her knee. She is currently denying pain. She is watching TV and is pleasant. She is still awaiting insurance approval for the Swing Unit in [place]. Call haddad in hand. [facility] 01-17-2024 Nurse Note Assessment is complete and remains unchanged from previous at this time with any exceptions noted in the flowsheet. Patient denies further needs and is left with call light and personals in reach. [facility] 01-17-2024 Nurse Note Assessment is complete and remains unchanged from previous at this time with any exceptions noted in the flowsheet. Patient denies further needs and is left with call light and personals in reach. [facility] 01-17-2024 Nurse Note Resting in chair. Assessment unchanged from earlier. Call light in reach. [facility] 01-16-2024 Nurse Note Patient remains resting in recliner chair beside of bed. Voices no needs. Was medicated earlier for pain. Assessment unchanged from previous. Ice maintained to left hip. Call light in reach. [facility] 01-16-2024 Plan of care note Problem: Skin Injury Risk Increased Goal: Skin Health and Integrity Outcome: Progressing Intervention: Optimize Skin Protection Flowsheets Taken 01/16/2024 1634 by Elysia rGeen RN Activity Management: activity adjusted per tolerance Taken 01/16/2024 1600 by Olesya Lopez LPN Head of Bed (HOB) Positioning: (in chair) other (see comments) Taken 01/16/2024 0430 by Reynaldo Cool RN Pressure Reduction Techniques: frequent weight shift encouraged Pressure Reduction Devices: pressure-redistributing mattress utilized Skin Protection: incontinence pads utilized Intervention: Promote and Optimize Oral Intake Flowsheets (Taken 01/14/2024 1630) Oral Nutrition Promotion: rest periods promoted Nutrition Interventions: diet adjusted [facility] 01-16-2024 Nurse Note Afternoon assessment completed. No changes noted. Patient resting with no complaints. Call light and phone within reach. [facility] 01-16-2024 Nurse Note No change noted from previous assessment by this RN unless otherwise detailed in coordinating flow sheets. Patient denies any needs at this time. [facility] 01-16-2024 Nurse Note Assessment unchanged from prior unless otherwise charted. Patient resting in bed, call light within reach, Up In Chair, Patient denies any current needs at this time. [facility] 01-15-2024 Plan of care note Problem: Skin Injury Risk Increased Goal: Skin Health and Integrity Outcome: Progressing Intervention: Optimize Skin Protection Flowsheets Taken 01/15/2024 1616 by Elysia Green RN Activity Management: activity adjusted per tolerance Taken 01/15/2024 1600 by Olesya Lopez LPN Head of Bed (HOB) Positioning: HOB at 30-45 degrees Taken 01/14/2024 1001 by Jocelin Alegria Student Nurse Pressure Reduction Techniques: frequent weight shift encouraged Pressure Reduction Devices: pressure-redistributing mattress utilized Skin Protection: incontinence pads utilized Intervention: Promote and Optimize Oral Intake Flowsheets (Taken 01/14/2024 1630) Oral Nutrition Promotion: rest periods promoted Nutrition Interventions: diet adjusted [facility] 01-15-2024 Nurse Note Afternoon assessment completed. No changes noted. Patient resting in the chair with no complaints. Call light and phone within reach. [facility] 01-15-2024 Nurse Note No change noted from previous assessment by this RN unless otherwise detailed in coordinating flow sheets. Patient denies any needs at this time. [facility] 01-15-2024 Nurse Note Pt assessment remains unchanged with any exceptions noted in flowsheets. Pt is resting in the recliner chair, respirations even and unlabored. Fresh ice pack applied to left hip. DEYSI dressing intact and flashing green. Pt c/o 7/10 pain to left hip with spasms. Tramadol given - see SEP. Pt denies any further needs at this time. Call light within reach. [facility] 01-15-2024 Nurse Note Pt assessment remains unchanged with any exceptions noted in flowsheets. Pt appears to be sleeping, respirations even and unlabored. Call light within reach. [facility] 01-14-2024 Nurse Note Pt assessment complete and documented in flowsheets. POC reviewed with pt. Pt is alert, respirations even and unlabored. No acute distress observed. Fresh ice pack applied to left hip. DEYSI dressing intact and flashing green. Pt c/o 8 pain to left hip. Tramadol given - see MAR. Pt denies any further needs at this time. Call light within reach. [facility] 01-14-2024 Plan of care note Problem: Skin Injury Risk Increased Goal: Skin Health and Integrity Outcome: Progressing Intervention: Optimize Skin Protection Flowsheets Taken 01/14/2024 1622 by Elysia Green RN Activity Management: activity adjusted per tolerance Taken 01/14/2024 1001 by Davina Blanchard Pressure Reduction Techniques: frequent weight shift encouraged Pressure Reduction Devices: pressure-redistributing mattress utilized Skin Protection: incontinence pads utilized Taken 01/13/2024 1300 by Davina Blanchard Nurse Head of Bed (HOB) Positioning: HOB at 60 degrees Intervention: Promote and Optimize Oral Intake Flowsheets (Taken 01/14/2024 1630) Oral Nutrition Promotion: rest periods promoted Nutrition Interventions: diet adjusted [facility] 01-14-2024 Nurse Note Afternoon assessment completed. No changes noted. Patient resting with no complaints. Call light and phone within reach. [facility] 01-14-2024 Nurse Note No change noted from previous assessment by this RN unless otherwise detailed in coordinating flow sheets. Patient denies any needs at this time. [facility] 01-14-2024 Nurse Note Pt resting in chair. Assessment remains unchanged from previous. Call light is within reach, SCDs are on. [facility] 01-14-2024 Nurse Note Pt resting in bed. Assessment remains unchanged from previous. [employer] redresses avril wraps to BLE. Call light is within reach and bed alarm is on. [facility] 01-13-2024 Nurse Note Updates given to daughter Sonal. She denies any questions or concerns. [facility] 01-13-2024 Consult note Formatting of th is note is different from the original. Medical consultation Patient is an 83-year-old female who presents for total hip arthroplasty. She is doing well postoperatively. Pain is poorly controlled. She has ambulated and voided. She denies chest pain, palpitations, cough, sputum, shortness of breath, vomiting, lower extremity edema. Patient has agreed to swing bed. Awaiting insurance approval. She did have an episode of chest pain after I rounded in the morning. Stat EKG ordered and nonacute. Troponin ordered and normal. Does have a history of reflux. Has been feeling anxious during the hospitalization. Known right bundle branch block. Preop EKG at baseline. Known diastolic dysfunction. Director Of Services did clear her for surgery. She had a preoperative echocardiogram which is not available to me. Known B12 deficiency on oral replacement. History of DVT/PE on anticoagulation. Elevated blood pressure without formal diagnosis of hypertension. Not on any medication currently. Impaired fasting glucose. Watching diet only. Hemoglobin A1c preoperatively normal. 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 No recent signs of gout. Known GERD/gastritis. Symptoms are under good control. There are no side effects noted from the medication. she denies water brash, bitter or metallic taste, dysphagia, nausea, vomiting, hematemesis, melena, or black/tarry stools. Known urinary incontinence. Doing well on current medication. History of AAA. No symptoms. Echocardiogram performed preoperatively as part of cardiac clearance. General: No fever, chills, weight loss. HEENT: No sinus pain, ear pain, sore throat. Neck: No LAD. Lungs: No cough, sputum, pleuritic pain, hemoptysis, SOB. CV: No palpitation, orthopnea, PND, edema. GI: No abd pain, nausea, vomiting, diarrhea, constipation, melena, hematochezia. : No dysuria, frequency, hematuria. Skin: No rash or lesion. Neuro: No mental status changes, headache, focal neurologic complaints. Objective: Blood pressure 143/69, pulse 80, temperature 98.7 F (37.1 C), temperature source Temporal, resp. rate 17, height 1.626 m (5' 4 ), weight 98.4 kg (216 lb 14.9 oz), SpO2 95%. Results for orders placed or performed during the hospital encounter of 01/11/24 PROTIME-INR Result Value Ref Range PT 14.2 11.8 - 14.4 SEC INR 1.09 0.85 - 1.10 CBC, EDIF, PLATELET Result Value Ref Range WBC (WHITE BLOOD COUNT) 10.5 3.6 - 11.0 10*3/uL RBC 3.48 (L) 4.0 - 5.4 10*6/uL HEMOGLOBIN (HGB) 10.9 (L) 12.0 - 16.0 G/DL HEMATOCRIT (HCT) 33.3 (L) 36.0 - 48.0 % MEAN CELL VOLUME 95.7 80.0 - 100.0 FL Mean Cell HGB 31.4 26.0 - 35.0 PG MEAN CELL HGB CONCENTRATION 32.8 27.0 - 37.0 G/DL RBC DISTRIBUTION 14.3 11.5 - 14.5 % PLATELET COUNT 247 130 - 400 10*3/uL MEAN PLATELET VOLUME 8.2 7.4 - 11.0 FL DIFFERENTIAL TYPE AUTO DIFF % NEUTROPHILS 89.5 (H) 37.0 - 75.0 % LYMPHOCYTE 5.9 (L) 20.0 - 55.0 % MONOCYTE % 4.5 0.0 - 10.0 % EOSINOPHIL % 0.0 0.0 - 11.0 % BASOPHIL % 0.1 0.0 - 2.0 % Absolute Neutrophil Count 9.4 (H) 1.4 - 6.5 10*3/uL LYMPHOCYTES, ABSOLUTE 0.6 (L) 1.2 - 3.4 10*3/uL MONOCYTES, ABSOLUTE 0.5 0.0 - 0.7 10*3/uL ABSOLUTE EOSINOPHIL COUNT 0.0 0.0 - 0.7 10*3/uL ABSOLUTE BASOPHIL COUNT 0.0 0.0 - 0.2 10*3/uL BASIC METABOLIC PANEL Result Value Ref Range Glucose 179 (H) 70 - 100 MG/DL BUN 16 7 - 20 MG/DL CREATININE SERUM 0.70 0.70 - 1.20 MG/DL SODIUM 138 137 - 145 MMOL/L POTASSIUM 4.0 3.5 - 5.1 MMOL/L CHLORIDE 105 98 - 107 MMOL/L CARBON DIOXIDE (CO2) 24 22 - 30 MMOL/L ANION GAP 9 MMOL/L CALCIUM 9.1 8.4 - 10.2 MG/DL ESTIMATED GFR, NON AMER 85 ml/min/1.73sq.m ESTIMATED GFR, 103 ml/min/1.73sq.m GFR COMMENT Average GFR for 70+ years old = 75. CBC, EDIF, PLATELET Result Value Ref Range WBC (WHITE BLOOD COUNT) 10.0 3.6 - 11.0 10*3/uL RBC 3.31 (L) 4.0 - 5.4 10*6/uL HEMOGLOBIN (HGB) 10.6 (L) 12.0 - 16.0 G/DL HEMATOCRIT (HCT) 31.8 (L) 36.0 - 48.0 % MEAN CELL VOLUME 95.9 80.0 - 100.0 FL Mean Cell HGB 31.9 26.0 - 35.0 PG MEAN CELL HGB CONCENTRATION 33.2 27.0 - 37.0 G/DL RBC DISTRIBUTION 14.5 11.5 - 14.5 % PLATELET COUNT 228 130 - 400 10*3/uL MEAN PLATELET VOLUME 8.1 7.4 - 11.0 FL DIFFERENTIAL TYPE AUTO DIFF % NEUTROPHILS 85.8 (H) 37.0 - 75.0 % LYMPHOCYTE 5.9 (L) 20.0 - 55.0 % MONOCYTE % 8.3 0.0 - 10.0 % EOSINOPHIL % 0.0 0.0 - 11.0 % BASOPHIL % 0.0 0.0 - 2.0 % Absolute Neutrophil Count 8.6 (H) 1.4 - 6.5 10*3/uL LYMPHOCYTES, ABSOLUTE 0.6 (L) 1.2 - 3.4 10*3/uL MONOCYTES, ABSOLUTE 0.8 (H) 0.0 - 0.7 10*3/uL ABSOLUTE EOSINOPHIL COUNT 0.0 0.0 - 0.7 10*3/uL ABSOLUTE BASOPHIL COUNT 0.0 0.0 - 0.2 10*3/uL BASIC METABOLIC PANEL Result Value Ref Range Glucose 164 (H) 70 - 100 MG/DL BUN 19 7 - 20 MG/DL CREATININE SERUM 0.70 0.70 - 1.20 MG/DL SODIUM 137 137 - 145 MMOL/L POTASSIUM 4.2 3.5 - 5.1 MMOL/L CHLORIDE 107 98 - 107 MMOL/L CARBON DIOXIDE (CO2) 26 22 - 30 MMOL/L ANION GAP 4 MMOL/L CALCIUM 9.0 8.4 - 10.2 MG/DL ESTIMATED GFR, NON AMER 85 ml/min/1.73sq.m ESTIMATED GFR, 103 ml/min/1.73sq.m GFR COMMENT Average GFR for 70+ years old = 75. TROPONIN I, HIGH SENSITIVITY Result Value Ref Range TROPONIN I, HIGH SENSITIVITY 9 0 - 12 pg/mL TROPONIN I, HIGH SENSITIVITY Result Value Ref Range TROPONIN I, HIGH SENSITIVITY 10 0 - 12 pg/mL TROPONIN I, HIGH SENSITIVITY Result Value Ref Range TROPONIN I, HIGH SENSITIVITY 14 (H) 0 - 12 pg/mL REPEAT ABO/RH (D) TYPING Result Value Ref Range ABO/RH(D) O POSITIVE HEENT: NC/AT, PERRLA, EOMI, fundi benign, external ears normal, OP normal. Neck: No LAD/thyromegaly. No JVD/bruit. Lungs: Clear to auscultation bilaterally. No wheezes, rales, ronchi. Heart: RRR. No S3/S4. Abdomen: Soft, NT/ND, normal bowel sounds, no HSM, no bruits. Extremities: No clubbing, cyanosis, edema. Normal pulses. Neurologic: CN II-XII intact. Strength/DTR's/sensation symmetric. Cerebellar function normal. Skin: No rash or suspicious lesions. Musculoskeletal: No edema, redness, warmth, deformities. Psychiatric: Alert and oriented. Affect and mood normal. Assessment and Plan: Postop day 2 total hip arthroplasty - pain medication, therapy, and anticoagulation per Orthopedic surgery. Full anticoagulation as soon as safe. Awaiting approval for swing bed. Right bundle branch block - monitor heart rhythm on telemetry. History of diastolic dysfunction - monitor fluid status closely. B12 deficiency - resume oral replacement as soon as discharged. History of DVT/PE - full anticoagulation as soon as safe postoperatively. Elevated blood pressure without diagnosis of hypertension - monitor blood pressures closely, BMP in the morning. Impaired fasting glucose - carb controlled diet and basic metabolic panel in the morning. No need for sliding scale insulin since hemoglobin A1c is normal. Elevated uric acid - continue allopurinol and monitor clinically for gout. GERD - continue proton pump inhibitor also for GI prophylaxis. Urinary incontinence - continue home medications. AAA - no acute management needed during hospitalization. Chest pain - initial EKG and troponin normal. She is currently pain-free. For our repeat troponin also normal. Continue to monitor clinically. 35 minutes total time. Luis Monte MD 01/13/2024 [facility] 01-13-2024 Nurse Note No changes noted from previous assessment by this RN except what is detailed in coordinating flow sheets. Patient denies needs at this time. Call light is in reach. [facility]13[facility] Nurse Note Patient denies any pain at this time. Patient denies need for pain medication and states she will call whenever she needs them. Med ULLOA at bedside. No changes noted from previous assessment by this RN except what is detailed in coordinating flow sheets. Patient denies needs at this time. Call light is in reach. [facility] 01-13-2024 Nurse Note Voicemail left for Dr. Monte regarding updates of patient's test per request. EKG showed sinus rhythm with premature atrial complexes and right bundle branch block. Troponin resulting at 10. Patient denies any chest pain/pressure at this time. Patient states I think it was indigestion, I get that a lot . Patient denies needs at this time. Call light is in reach. [facility] 01-13-2024 Nurse Note [employer] reviews charting by Madeleine CANALES, automobile service writer agrees with charting. [facility] 01-13-2024 Nurse Note Patient complains of chest pain she describes it as pressure that is moving left. She states it feels like how it fells when I get indigestion . Dr. Monte notified. New orders received. [facility] 01-13-2024 Nurse Note Reassessment complete at this time and remains unchanged from previous. Patient states I slept really well last night. I think the Tramadol helped a lot. Patient rates pain 5/10 and 8/10 with spasms, movement. Patient DEYSI flashing green. Patient denies further needs and is left with call light and personals within reach. [facility] 01-13-2024 Nurse Note Reassessment complete at this time. Patient states Pain is much better. Patient denies any further needs and is left with call light and personals within reach. [facility] 01-12-2024 Consult note Formatting of th is note is different from the original. Medical consultation Patient is an 83-year-old female who presents for total hip arthroplasty. She is doing well postoperatively. Pain is poorly controlled. She has ambulated and voided. She denies chest pain, palpitations, cough, sputum, shortness of breath, vomiting, lower extremity edema. Nausea without vtg. Concerned about going home. Known right bundle branch block. Preop EKG at baseline. Known diastolic dysfunction. Director Of Services did clear her for surgery. She had a preoperative echocardiogram which is not available to me. Known B12 deficiency on oral replacement. History of DVT/PE on anticoagulation. Elevated blood pressure without formal diagnosis of hypertension. Not on any medication currently. Impaired fasting glucose. Watching diet only. Hemoglobin A1c preoperatively normal. 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 No recent signs of gout. Known GERD/gastritis. Symptoms are under good control. There are no side effects noted from the medication. she denies water brash, bitter or metallic taste, dysphagia, nausea, vomiting, hematemesis, melena, or black/tarry stools. Known urinary incontinence. Doing well on current medication. History of AAA. No symptoms. Echocardiogram performed preoperatively as part of cardiac clearance. General: No fever, chills, weight loss. HEENT: No sinus pain, ear pain, sore throat. Neck: No LAD. Lungs: No cough, sputum, pleuritic pain, hemoptysis, SOB. CV: No chest pain, palpitation, orthopnea, PND, edema. GI: No abd pain, nausea, vomiting, diarrhea, constipation, melena, hematochezia. : No dysuria, frequency, hematuria. Skin: No rash or lesion. Neuro: No mental status changes, headache, focal neurologic complaints. Objective: Blood pressure 118/62, pulse 76, temperature 97.2 F (36.2 C), temperature source Temporal, resp. rate 16, height 1.626 m (5' 4 ), SpO2 93%. Results for orders placed or performed during the hospital encounter of 01/11/24 PROTIME-INR Result Value Ref Range PT 14.2 11.8 - 14.4 SEC INR 1.09 0.85 - 1.10 CBC, EDIF, PLATELET Result Value Ref Range WBC (WHITE BLOOD COUNT) 10.5 3.6 - 11.0 10*3/uL RBC 3.48 (L) 4.0 - 5.4 10*6/uL HEMOGLOBIN (HGB) 10.9 (L) 12.0 - 16.0 G/DL HEMATOCRIT (HCT) 33.3 (L) 36.0 - 48.0 % MEAN CELL VOLUME 95.7 80.0 - 100.0 FL Mean Cell HGB 31.4 26.0 - 35.0 PG MEAN CELL HGB CONCENTRATION 32.8 27.0 - 37.0 G/DL RBC DISTRIBUTION 14.3 11.5 - 14.5 % PLATELET COUNT 247 130 - 400 10*3/uL MEAN PLATELET VOLUME 8.2 7.4 - 11.0 FL DIFFERENTIAL TYPE AUTO DIFF % NEUTROPHILS 89.5 (H) 37.0 - 75.0 % LYMPHOCYTE 5.9 (L) 20.0 - 55.0 % MONOCYTE % 4.5 0.0 - 10.0 % EOSINOPHIL % 0.0 0.0 - 11.0 % BASOPHIL % 0.1 0.0 - 2.0 % Absolute Neutrophil Count 9.4 (H) 1.4 - 6.5 10*3/uL LYMPHOCYTES, ABSOLUTE 0.6 (L) 1.2 - 3.4 10*3/uL MONOCYTES, ABSOLUTE 0.5 0.0 - 0.7 10*3/uL ABSOLUTE EOSINOPHIL COUNT 0.0 0.0 - 0.7 10*3/uL ABSOLUTE BASOPHIL COUNT 0.0 0.0 - 0.2 10*3/uL BASIC METABOLIC PANEL Result Value Ref Range Glucose 179 (H) 70 - 100 MG/DL BUN 16 7 - 20 MG/DL CREATININE SERUM 0.70 0.70 - 1.20 MG/DL SODIUM 138 137 - 145 MMOL/L POTASSIUM 4.0 3.5 - 5.1 MMOL/L CHLORIDE 105 98 - 107 MMOL/L CARBON DIOXIDE (CO2) 24 22 - 30 MMOL/L ANION GAP 9 MMOL/L CALCIUM 9.1 8.4 - 10.2 MG/DL ESTIMATED GFR, NON AMER 85 ml/min/1.73sq.m ESTIMATED GFR, 103 ml/min/1.73sq.m GFR COMMENT Average GFR for 70+ years old = 75. REPEAT ABO/RH (D) TYPING Result Value Ref Range ABO/RH(D) O POSITIVE HEENT: NC/AT, PERRLA, EOMI, fundi benign, external ears normal, OP normal. Neck: No LAD/thyromegaly. No JVD/bruit. Lungs: Clear to auscultation bilaterally. No wheezes, rales, ronchi. Heart: RRR. No S3/S4. Abdomen: Soft, NT/ND, normal bowel sounds, no HSM, no bruits. Extremities: No clubbing, cyanosis, edema. Normal pulses. Neurologic: CN II-XII intact. Strength/DTR's/sensation symmetric. Cerebellar function normal. Skin: No rash or suspicious lesions. Musculoskeletal: No edema, redness, warmth, deformities. Psychiatric: Alert and oriented. Affect and mood normal. Assessment and Plan: Postop day 1 total hip arthroplasty - pain medication, therapy, and anticoagulation per Orthopedic surgery. Full anticoagulation as soon as safe. Discussing with patient placement. Right bundle branch block - monitor heart rhythm on telemetry. History of diastolic dysfunction - monitor fluid status closely. B12 deficiency - resume oral replacement as soon as discharged. History of DVT/PE - full anticoagulation as soon as safe postoperatively. Elevated blood pressure without diagnosis of hypertension - monitor blood pressures closely, BMP in the morning. Impaired fasting glucose - carb controlled diet and basic metabolic panel in the morning. No need for sliding scale insulin since hemoglobin A1c is normal. Elevated uric acid - continue allopurinol and monitor clinically for gout. GERD - continue proton pump inhibitor also for GI prophylaxis. Urinary incontinence - continue home medications. AAA - no acute management needed during hospitalization. 35 minutes total time. Luis Monte MD 01/12/2024 [facility] 01-12-2024 Nurse Note Assessment complete at this time with any exceptions noted in the flowsheets. Patient was snoring upon this nurse entering the room. Patient did not awaken to verbal stimulation. This nurse touched patients arm in an attempt to awaken her. Patient was still snoring. This nurse rubbed patient and she startled awake. Patient asked for Matador and was told she was not due for two more hours. Patient agreeable to wait. Patient denies further needs and is left with call light and personals within reach. [facility] 01-12-2024 Nurse Note Patient son's Mat at bedside at this time. This RN questioned if the patient would like PRN pain medication, patient states I'll call you when I want them . Denies needs at this time, call light within reach. [facility] 01-12-2024 Nurse Note No changes noted from previous assessment by this RN except what is detailed in coordinating flow sheets. Patient denies needs at this time. Call light is in reach. [facility] 01-12-2024 Nurse Note Bilaterally AVRIL wrap applied to lower legs with MARY Mcgee at this time per Randell AVILA. T [facility] 01-12-2024 Hospital Discharg e instructions Katlyn Zimmer RN - 01/12/2024 2:05 PM EDT Ambulation: > Weight bearing status : Toe-touch > Above weight bearing status as tolerated with a walker then progress to a cane if stable, unless noted otherwise by the physician or therapist. For Hip Replacements: > No formal physical therapy, walking is the patients best therapy, unless otherwise noted. > General Hip Precautions Post op (unless otherwise noted from the doctor): * Do not cross legs at knee or ankles * Do not bend past 90 degrees * Do not twist * May roll to side with pillow between legs Hip Precautions: Global hip precautions Katlyn Zimmer RN - 01/12/2024 1:59 PM EDT Resume diet tolerated. Ada Arteaga RN - 01/12/2024 2:[address] Heredia's office number is [phone], option #2 for the nurse. If after hours, please contact the main hospital number, and ask for Dr. Heredia's on-call provider. Contact Office ([phone]) if: > Any falls or injuries > Redness, drainage or swelling at the incision site that is out of the ordinary from post-operative findings (minor redness, swelling and warmth around the entire knee are common post-operatively) > Patient non-compliance with assistive devices during gait > Fever > 101 degrees. For low grade fevers use Incentive Spirometry @ 10 puffs per hour and tylenol as directed. Katlyn Zimmer RN - 01/12/2024 2:01 PM EDT Josafat Hose: > Help reduce the risk of blood clots and decrease swelling > To be worn bilaterally to the lower extremities for 30 days post-op > Patients can take their josafat hose off for 1 hour for every 8 hours that they wear them You will be discharged with two pairs of JOSAFAT hose. Gel Ice Packs: > Change every 4 hours or as needed for swelling and pain for at least the first 2 weeks You will be discharged with six ice gel packs, and one ice gel compression wrap. Wound Care Instructions:You have been given an educational handout on your DEYSI dressing that is covering your incision. You will remove this dressing Wednesday , January 18 2024. Gently peel back the dressing while holding the skin taught. Do not rip or quickly pull off dressing. Once the dressing is removed you will discard the dressing, tubing and battery pack in the trash. Once your DEYSI dressing is removed you will place an ABD over your incision for comfort. Your incision is closed with Dermabond, this is skin glue that will come off in time. You may shower with this, however, do not saturate or submerge extremity in water (i.e. Bathtub, hot tub, etc.) until cleared by the provider. For the first week post-op, do not wash/scrub directly over/on your incision, simply allow the soapy water to run over it, ensuring that it rinses well. Pat your incision dry, do not rub your incision with a towel. Do not place any lotions, ointments, creams or powder on your incision or operative leg. When applying your new ABD pad after showering as a reminder do not place any tape over you ABD pad. Your underwear are to hold your pad in place. After the first week post-op and the DEYSI has been removed it is ok to wash your incision directly. To this we encourage use of a clean cotton wash cloth. It is very important to ensure that you avoid any cross-contamination with your incision and other areas of the body. We encourage use of a mild, scent free soap that will not irritate the area, such as Dial, antibacterial soap. When preparing to wash the incision, use very gently pressure, making 2-3 passes in the same direction down the length of the incision. No scrubbing. You can then, use the same light pressure to wash the area surrounding the incision. Rinse well, dab dry. It is ok to wash daily, continue ABD use over the incision as there is glue still in place. Ensure there are no underwear or garments causing focal pressure to any region of the incision. When to call us: If you have any concerns regarding your incision, please contact the office immediately. This includes areas of redness, drainage, or concerns for opening in the incision. You will be discharged with seven ABD pads. The following attachments cannot be sent through Care Everywhere.acetaminophen and hydrocodone (Macedonian)acetaminophen (oral) (Macedonian)docusate (oral/rectal) (Macedonian)apixaban (Macedonian)Blood Thinners: How to Prevent Bleeding ([facility]) (Macedonian)documented in this encounter [facility] 01-12-2024 Nurse Note No changes noted from previous assessment by this RN except what is detailed in coordinating flow sheets. Patient denies needs at this time. Call light is in reach. [facility] 01-12-[address] Mackye GOVERNMENT CLERK rounding. He discussed the quality of her bone from in the OR and the slight intraoperative fracture and the strict precautions including global and TDWB resulting ti the need for a SNF on discharge. Cuate extremely addiment I am not going to a [place] health care facility. I'm going home . Ave explained after PT/OT evaluation today we might to had an additional conversation. Cuate looks to be upset over this visit at this time. The plan for nursing will be to now allow PT/OT to evaluate and clear explain options on discharge. [facility] 01-12-2024 Nurse Note Pt assessment remains unchanged with any exceptions noted in flowsheets. Pt is resting in bed, respirations even and unlabored. Fresh ice pack applied to left hip. DEYSI dressing intact and flashing green. Pt c/o 10/10 pain to left hip. Matador given - see MAR. Pt denies any further needs at this time. Call light within reach. [facility] 01-11-2024 Nurse Note Pt assessment remains unchanged with any exceptions noted in flowsheets. Pt is resting in bed, respirations even and unlabored. Fresh ice pack applied to left hip. DEYSI dressing intact and flashing green. Pt c/o 8/10 pain to left hip, Matador given - see MAR. Pt denies any further needs at this time. Call light within reach. [facility] 01-11-2024 Nurse Note Pt assessment complete and documented in flowsheets. POC reviewed with pt. Pt appears drowsy upon entering room, but arouses easily to voice and follows commands. Respirations even and unlabored. Fresh ice pack applied to left hip. DEYSI dressing intact and flashing green. Pt c/o 8/10 pain to left hip, pt declines pain medication intervention until next dose due. Pt denies any further needs at this time. Call light within reach. [facility] 01-11-2024 Progress note Formatting of t his note might be different from the original. Pt nauseated at this time IS not done RN aware and will give medication for nausea and then instruct pt. [facility] 01-11-2024 Consult note Associated Order (s): IP CONSULT TO GENERAL MEDICINE Medical consultation Patient is an 83-year-old female who presents for total hip arthroplasty. 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 Preop testing notable for an INR of 1.47, a blood sugar of 115, a hemoglobin A1c of 5.7, a urinalysis positive for leukocyte esterase and nitrites with a positive culture status post treatment and methicillin sensitive staph aureus also status post treatment. She is doing well postoperatively. Pain is adequately controlled. She has ambulated but has not voided. She denies chest pain, palpitations, cough, sputum, shortness of breath, nausea, vomiting, lower extremity edema. Known right bundle branch block. Preop EKG at baseline. Known diastolic dysfunction. Director Of Services did clear her for surgery. She had a preoperative echocardiogram which is not available to me. Known B12 deficiency on oral replacement. History of DVT/PE on anticoagulation. Elevated blood pressure without formal diagnosis of hypertension. Not on any medication currently. Impaired fasting glucose. Watching diet only. Hemoglobin A1c preoperatively normal. 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 No recent signs of gout. Known GERD/gastritis. Symptoms are under good control. There are no side effects noted from the medication. she denies water brash, bitter or metallic taste, dysphagia, nausea, vomiting, hematemesis, melena, or black/tarry stools. Known urinary incontinence. Doing well on current medication. History of AAA. No symptoms. Echocardiogram performed preoperatively as part of cardiac clearance. General: No fever, chills, weight loss. HEENT: No sinus pain, ear pain, sore throat. Neck: No LAD. Lungs: No cough, sputum, pleuritic pain, hemoptysis, SOB. CV: No chest pain, palpitation, orthopnea, PND, edema. GI: No abd pain, nausea, vomiting, diarrhea, constipation, melena, hematochezia. : No dysuria, frequency, hematuria. Skin: No rash or lesion. Neuro: No mental status changes, headache, focal neurologic complaints. Past Medical History: Diagnosis Date Aortic aneurysm Arthritis Deep vein thrombosis (DVT) GERD (gastroesophageal reflux disease) Past Surgical History: Procedure Laterality Date NEPHRECTOMY Right 1979 CHOLECYSTECTOMY HIP REPLACEMENT Right HYSTERECTOMY KNEE REPLACEMENT Bilateral left x 2 LITHOTRIPSY multiple Social History Socioeconomic History Marital status: Single Spouse name: Not on file Number of children: Not on file Years of education: Not on file Highest education level: Not on file Occupational History Not on file Tobacco Use Smoking status: Never Smokeless tobacco: Never Substance and Sexual Activity Alcohol use: Never Drug use: Never Sexual activity: Not on file Other Topics Concern Not on file Social History Narrative Not on file Social Determinants of Health Financial Resource Strain: Not on file Food Insecurity: Not on file Transportation Needs: Not on file Physical Activity: Not on file Stress: Not on file Social Connections: Not on file Intimate Partner Violence: Unknown (09/09/2023) Received from [facility] [place] [facility] Environment Fear of Current or Ex-Partner: Not on file Emotionally Abused: Not on file Physically Abused: Not on file Sexually Abused: Not on file Physically or Sexually Abused: Not on file Housing Stability: Not on file Allergies Allergen Reactions Morphine Nausea and Vomiting Other Reaction(s): GI intolerance Other Reaction(s): Unknown Oxycodone Nausea and Vomiting Other Reaction(s): GI intolerance Other Reaction(s): Unknown Penicillins Hives Objective: Blood pressure 146/67, pulse 80, temperature 98 F (36.7 C), resp. rate 15, height 1.626 m (5' 4 ), SpO2 99%. Results for orders placed or performed during the hospital encounter of 01/11/24 PROTIME-INR Result Value Ref Range PT 14.2 11.8 - 14.4 SEC INR 1.09 0.85 - 1.10 REPEAT ABO/RH (D) TYPING Result Value Ref Range ABO/RH(D) O POSITIVE HEENT: NC/AT, PERRLA, EOMI, fundi benign, external ears normal, OP normal. Neck: No LAD/thyromegaly. No JVD/bruit. Lungs: Clear to auscultation bilaterally. No wheezes, rales, ronchi. Heart: RRR. No S3/S4. Abdomen: Soft, NT/ND, normal bowel sounds, no HSM, no bruits. Extremities: No clubbing, cyanosis, edema. Normal pulses. Neurologic: CN II-XII intact. Strength/DTR's/sensation symmetric. Cerebellar function normal. Skin: No rash or suspicious lesions. Musculoskeletal: No edema, redness, warmth, deformities. Psychiatric: Alert and oriented. Affect and mood normal. Assessment and Plan: Postop day 0 total hip arthroplasty - pain medication, therapy, and anticoagulation per Orthopedic surgery. Full anticoagulation as soon as safe. Right bundle branch block - monitor heart rhythm on telemetry. History of diastolic dysfunction - monitor fluid status closely. B12 deficiency - resume oral replacement as soon as discharged. History of DVT/PE - full anticoagulation as soon as safe postoperatively. Elevated blood pressure without diagnosis of hypertension - monitor blood pressures closely, BMP in the morning. Impaired fasting glucose - carb controlled diet and basic metabolic panel in the morning. No need for sliding scale insulin since hemoglobin A1c is normal. Elevated uric acid - continue allopurinol and monitor clinically for gout. GERD - continue proton pump inhibitor also for GI prophylaxis. Urinary incontinence - continue home medications. AAA - no acute management needed during hospitalization. 55 minutes total time. Luis Monte MD 01/11/2024 [facility] 01-11-2024 Nurse Note Patient returned to floor via cart with PACU nurse. Patient reporting 10/10 pain to her left hip, left shoulder, and right knee. Requesting to be repositioned and for abductor pillow to be removed. I educated patient and family of the purpose of the abductor pillow as well as her hip precautions. Pt stating, I can't have my legs spread out like this, it is very painful and uncomfortable. This nurse removed the abductor pillow and repositioned her legs ensuring her left leg did not cross midline and placed a regular pillow between her legs. Pillows placed under her left arm to support her shoulder. Warm blankets applied as patient reporting she is cold. Patient requesting pain medication. However, she is also reporting nausea. Educated patient that narcotic pain medications could worsen her nausea. Pt verbalized understanding, however, requested the pain medication be given. Dilaudid and Zofran given. Emesis bag given. Reviewed clear liquid menu with patient. Patient requested lemon karuk soda. Soda given. Encouraged patient to try and rest. Family at the bedside. Safety education given. Call light within reach. Bed alarm set. [facility] 01-11-2024 Nurse Note Abductor pillow in place. Ice pack to Left hip [facility] 01-11-2024 Nurse Note Patient transported to PACU with Chava PATHAK. Reports given to Nely HERNANDEZ at 1759H. OR 4 temp 67.2F, humidity 40% documented in this encounter [facility] 01-11-2024 Nurse Surgical operation note Patient transported to PACU with Chava PATHAK. Reports given to Nely HERNANDEZ at 1759H. [facility] 01-11-2024 Surgery Postoperative evaluation and management note POST OPERATIVE/PROCEDURE NOTE Cuate Goodman 83 y.o. female [id number] SURGEON Surgeons and Role: * Erik Heredia MD - Primary MOLD CUTTING MACHINE OPERATOR Ave Mackey APRN-MARGARITA ANESTHESIOLOGIST FELLMONGERING MACHINE OPERATOR: Chava Linares APRN-ZO SURGICAL STAFF Loom Setter Fourdrinier: Shantell Flood RN; Rebecca Baltazar RN; Magdalene Gilbert RN Nurse Practitioner: RENE Monique Pain Management Physician: Delores German Scrub Person: Jolene Sanchez, SALLY; Zari Hayes RN PROCEDURE PERFORMED Procedure(s) (LRB): ARTHROPLASTY HIP TOTAL AL *STAT PT ON ARRIVAL* (Left) Left hip periarticular injection Intra-op interpretation of xray PRIMARY CLOSURE yes ANESTHESIA (type of) General ESTIMATED BLOOD LOSS 125 DRAINS none BLOOD PRODUCTS None PRE OPERATIVE DIAGNOSIS Osteoarthritis of left hip, unspecified osteoarthritis type [M16.12] POST OPERATIVE DIAGNOSIS Osteoarthritis of left hip, unspecified osteoarthritis type [M16.12] FINDINGS See op note CONDITION OF PATIENT Stable COMPLICATION Fx greater trochanter GRAFTS AND/OR IMPLANTS Implant Name Type Inv. Item Serial No. Dowel Sander Operator Lot No. LRB No. Used Action [place] Gription Acetabular Shell Sector 52mm OD [employer] [id number] Left 1 Implanted [place] ALTRX Polyethylene Acetabular Liner Neutral 36mm ID 52mm OD [employer] [id number] Left 1 Implanted Cementralizer Stem Centralizer 10.5mm Cemented [employer] [id number] Left 1 Implanted [place]ulloch Femoral Stem 12/14 Taper Cemented Size 5 STD 120mm [employer] [id number] Left 1 Implanted [place] LV 1x40 [id number] Left 1 Implanted Palasco LV 1x40 [id number] Left 1 Implanted [place]co R 1x40 [id number] Left 1 Implanted Biolox Delta Ceramic Femoral Head +1.5 36mm MERLYN 12/14 Taper [employer] [id number] Left [address], BioComposite Corkscrew FT,Vented with 1.3mm White/blue and white/black suture tape ARTHREX [id number] Left 1 Implanted Ti Trochanteric Reattachment Device w/Cables/Standard-Ster [employer] [id number] Left 1 Implanted SPECIMENS ID Type Source Tests Collected by Time Destination 1 : Left Femoral head Permanent TISSUE SURGICAL PATHOLOGY REQUEST Erik Heredia MD 01/11/2024 1610 RENE Monique January 11, 2024 5:48 PM [facility] 01-11-2024 Nurse Surgical operation note OR 4 temp 67.2F, humidity 40% T [facility] 01-11-2024 Note Shantell Dasilva RN 01/10 12:34 PM Ultrasound IV insertion Procedure note: Ultrasound trained RN contacted for IV access with ultrasound guidance. Procedure explained to patient. Anatomical distortion to interfere with placement:no known restriction Arm preference for venous access: Left Arm Patient is alert, cooperative, no distress, appears stated age PROCEDURE DETAILS: IV Insertion Procedure Veins evaluated with ultrasound and appropriate vein selected. IV access obtained with a 20 gauge, 1.88 in IV catheter placed in the L forearm basilic vein. Blood return noted, catheter flushed easily with 10mls 0.9 NS. Flushes easily and freely. Site free from swelling, redness, or signs of infiltration. Statlock securement applied with tegaderm dressing. Patient tolerated well. Denies pain. [X] Call light in reach. [X] Bed low and locked. [X] Tray table within reach. [facility] 01-11-2024 Procedure note Associated Ord er(s): GENERAL PROCEDURE Ultrasound IV insertion Procedure note: Ultrasound trained RN contacted for IV access with ultrasound guidance. Procedure explained to patient. Anatomical distortion to interfere with placement:no known restriction Arm preference for venous access: Left Arm Patient is alert, cooperative, no distress, appears stated age PROCEDURE DETAILS: IV Insertion Procedure Veins evaluated with ultrasound and appropriate vein selected. IV access obtained with a 20 gauge, 1.88 in IV catheter placed in the L forearm basilic vein. Blood return noted, catheter flushed easily with 10mls 0.9 NS. Flushes easily and freely. Site free from swelling, redness, or signs of infiltration. Statlock securement applied with tegaderm dressing. Patient tolerated well. Denies pain. [X] Call light in reach. [X] Bed low and locked. [X] Tray table within reach. T [facility] 01-11-2024 Procedure note Associated Ord er(s): GENERAL PROCEDURE Ultrasound IV insertion Procedure note: Ultrasound trained RN contacted for IV access with ultrasound guidance. Procedure explained to patient. Anatomical distortion to interfere with placement:no known restriction Arm preference for venous access: Left Arm Patient is alert, cooperative, no distress, appears stated age PROCEDURE DETAILS: IV Insertion Procedure Veins evaluated with ultrasound and appropriate vein selected. IV access obtained with a 20 gauge, 1.88 in IV catheter placed in the L forearm basilic vein. Blood return noted, catheter flushed easily with 10mls 0.9 NS. Flushes easily and freely. Site free from swelling, redness, or signs of infiltration. Statlock securement applied with tegaderm dressing. Patient tolerated well. Denies pain. [X] Call light in reach. [X] Bed low and locked. [X] Tray table within reach. documented in this encounter [facility] 12-22-2023 Note [facility] Note Reason for cardiology consult: New patient here for cardiac clearance for left hip replacement with Dr. Heredia. Currently scheduled for 01/10/2024. Chief Complaint: No cardiac complaints HPI: Cuate Goodman is a 83 y.o. female with history of PEs last 1 in October 2023 and at that time she was noted to have ascending aortic aneurysm 4.2 to 4.4 cm. She denies history of hypertension, hyperlipidemia or diabetes mellitus. The patient used to be active but over the last couple years her activities has been declining secondary to severe left hip pain. She still walks in the house with a walker. She denies any chest pain or shortness of breath at rest or with activities. She denies orthopnea. She sleeps in tilted bed chair because of the hip. She denies snoring or stopping breathing during the night. She admits occasional swelling in the left foot only. She denies any dizziness or palpitation or syncope or near syncope. She never been a smoker. Denies alcohol or illicit drugs Regarding family history her father had permanent pacemaker Cardiology ROS: All systems were reviewed and they were negative except for the positive findings noted in the history above. Past Medical History She has a past medical history of Aneurysm (CMS/HCC), Chronic kidney disease, and Pulmonary embolism (CMS/HCC). Surgical History She has a past surgical history that includes Nephrectomy; Hysterectomy; Replacement total hip lateral position; Knee surgery; and Cholecystectomy. Social History She reports that she has never smoked. She has been exposed to tobacco smoke. She has never used smokeless tobacco. She reports that she does not currently use alcohol. She reports that she does not use drugs. Family History Family History Problem Relation Name Age of Onset Lung cancer Mother Heart disease Father Other ( heart issues ) Father Prostate cancer Father Allergies Morphine Medications Current Outpatient Medications: allopurinol (Zyloprim) 100 mg tablet, Take 1 tablet every day by oral route for 90 days., Disp: , Rfl: cholecalciferol (Vitamin D-3) 25 MCG (1000 UT) capsule, Take by mouth., Disp: , Rfl: Eliquis 5 mg tablet, Take 5 mg by mouth twice a day., Disp: , Rfl: magnesium oxide (Mag-Ox) 400 mg (241.3 mg magnesium) tablet, , Disp: , Rfl: omeprazole (PriLOSEC) [address] capsule, 20 mg in the morning., Disp: , Rfl: tolterodine LA (Detrol LA) 4 mg 24 hr capsule, Take 4 mg by mouth in the morning., Disp: , Rfl: Last Recorded Vitals Visit Vitals BP 110/70 (BP Location: Left arm, Patient Position: Sitting) Pulse 50 Ht 1.626 m (5' 4 ) Wt 103 kg (227 lb) Comment: stated SpO2 96% BMI 38.96 kg/m??? Smoking Status Never BSA 2.16 m??? Physical Examination: GENERAL: alert and oriented x3, well developed, in no acute distress. HEAD: atraumatic, normocephalic. EYES: KIM, EOMI. NECK: trachea midline, no JVD present, no carotid bruits present. CARDIAC: S1, S2 present. RRR. No murmur, rubs, or gallops. RESPIRATORY: CTAB, no increased effort of breathing, no rales, rhonchi, or wheezing. ABDOMEN: soft, nontender, nondistended. EXTREMITIES: no lower extremity edema, significant skin thickness and changes suggestive of venous stasis. NEURO: strength/sensation equal and symmetric in bilateral upper and lower extremities. PSYCH: appropriate mood, affect, and judgement. Labs: 3-24 Free T3 3.02, Free T4 1.24, TSH 2.26 Cholesterol 157, triglyceride 104, HDL 57, LDL 79 White blood count 6.2, hemoglobin 12.3, hematocrit 36.9, platelets 492 Sodium 138, potassium 4.4, BUN 21, creatinine 0.75, glucose 98, calcium 9.9, GFR 80, magnesium 1.7 Total bilirubin 0.5, total protein 7.5, alk phos 92, AST 16, ALT 9 HbA1c 5.8% Last Images: EKG today 12/22/2023 showed normal sinus rhythm with PACs, heart rate 95 bpm, right bundle branch block, no T or ST changes EKG 12/16/2023 showed normal sinus rhythm with PACs, heart rate 90 bpm, right bundle branch block EKG 05/15/2020 showed normal sinus rhythm with a right bundle branch block. Echocardiographic study 11/19/2022 at [facility] Normal left ventricle systolic function, ejection fraction 50 to 55%, abnormal septal motion, diastolic function is indeterminate Right ventricle appears enlarged with preserved systolic function Mild mitral regurgitation Mild tricuspid rotation Moderately elevated right-sided pressure Mildly dilated ascending aorta 4.21 cm Echo 05/17/2020 at [facility] Normal left ventricle systolic function, ejection fraction above 55% Grade 2 diastolic dysfunction Mild mitral rotation Lexiscan nuclear stress test 05/15/2020 at [facility] No acute or reversible ischemia Small anterior wall fixed defect versus breast attenuation artifact Normal wall motion and ejection fraction 65%. Thank you Chest CTA 11/09/2022 at [facility] Small pulmonary embolus w (more content not included)... [facility] 12-16-2023 Nurse Note 12/16/23 [id number] Information Source Information Source patient Contact Information Production Line Solderer Name Chelsea Menezes RN Living Environment Lives With alone Living Arrangement and Set Up house (main floor living) Provides Primary Care For no one Primary Care Provided By self Support System Other (Comment) (very limited help, expects garnddaughter to assist but that mmay depend on her schedule) Functional Status Patient's Functional Status Prior To This Admission? Independent Concerns With Patient Being Able To Care For Themselves At Discharge? Yes Who Is Patient's Primary Contact For Discharge Planning, Education And Care For Discharge? 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 Patient states that return home with family assist. Patient has wheeled walker. Patient denies any other questions or needs at this time. CM to continue to follow and assist with discharge plans. [facility] 12-01-2023 History of Presen t illness Narrative Ortho Nurse - Established Patient Intake Room#: room 1---- OPNP here today for Left Hip pain;pt rates her pain on a scale 0/10 today, 10/10 when walking. Pt states she had a lot of clicking when she walks and can hear it. Rajeev referral; patient stated Dr Heredia did rtha 10 or more yrs ago. Pt states she states she did have a blood clot in the lung a year ago in October, she also has a heart aneurysm. Pt is wanting to discuss surgery, non nicotine. Date: 12/01/2023 2:14 PM Patient: Cuate Goodman MR#: [id number] : 1940 Age: 83 y.o. Referring Physician: Truman Boo Jr., DO Insurance: Payor: MEDICARE AETNA HMO [place] PPO / Plan: MEDICARE [employer] PPO / Product Type: *No Product type* / No chief complaint on file. There were no vitals taken for this visit. Pain Recent Labs No results found for: CRP No results found for: SEDRATE No results found for: WBC , WBCCOUNT , WBCFETAL , HGB , HCT , PLATELET , MCV History No past medical history on file. No past surgical history on file. Family History: Her family history is not on file. Social History: Her has no history on file for tobacco use, alcohol use, and drug use. No outpatient medications prior to visit. No facility-administered medications prior to visit. Allergies: She has no allergies on file. HPI: Patient is here today for evaluation of her left hip pain. She is an est patient of mine (history of right ANGELIQEU by myself approx 10-12 years ago), here today as a referral back from Dr. Boo. A pleasant 83 y.o. female with a history of progressive decline, physical function and decreased quality of life secondary to the hip pain over the past several years. She is experiencing locking, popping, catching and clicking. She has weakness, pain and instability. She presents in a wheelchair given her unpredictable ambulation. Apprehensive of falling. She has attempted and failed various methods of conservative treatments in the past. Her pain is 10 on a 10-point scale. At this time, she is weary of her symptoms and is here today to further discuss scheduling a left total hip arthroplasty for optimal assistant terminal manager management. PHYSICAL EXAM: This is an alert, oriented, and age-appropriate female. She is in no distress. Pleasant and cooperative. EXTREMITIES: The upper extremities have no gross deformity. Normal stability. 5/5 motor. Intact sensation. Normal coordination. Skin intact. Lower extremities have no gross deformity. Normal stability. 5/5 motor. Intact sensation. Normal coordination. Skin intact. Left hip demonstrates increased pain with with rotation and flexion. Groin pain. Painful range of motion. Contralateral hip has full and supple motion. No pain. No impingement. No instability. Normal neurovascular status in lower extremities bilaterally. IMAGING: Plain film radiographs were reviewed. AP hip and pelvis films demonstrate severe arthritis to left hip, loss of joint space, subchondral sclerosis, osteophyte formation, and fuxl-[id number] contact. IMPRESSION: 1.) Severe symptomatic end-stage arthritis, left hip. 2.) History of right ANGELIQUE by myself approx 10-12 years ago, doing well. PLAN: We have discussed in great detail the nature of the diagnosis, the natural history and expected progression which is likely worsening pain, instability with risks of falls, and additional joint wear and or bone loss. We have discussed the options for treatment including both conservative and operative treatments. We have discussed the risks, benefits, and alternatives to each treatment. Cuate is interested in surgical management in the form of a left anterolateral total hip replacement. Cuate understands that the potential benefits are reduced pain, improved stability and improved function. Cuate also understands that the major life or limb threatening risks include, but are not limited to: bleeding, infection, neurovascular injury including foot drop or paralysis, dislocation, component failure, implant loosening, leg length inequality, ligament or tendon disruption, fracture, stiffness, chronic pain, chronic limp, chronic disability, need for further surgery, blood clots in the extremities or lungs, stroke, heart attack, loss of limb, and ultimately loss of life. petroleum terminal plant operator expectations, risks and general implant survivorship were also discussed. Despite these risks, the patient would like to proceed with surgical planning. Today, we will initiate the pre-surgical process including nasal MRSA screening, scheduling an appointment for [facility] and the potential surgical date, and reviewing and signing the consent forms. I have reviewed the findings of my clinical staff below and agree with their assessment. Vitals: 12/01/23 1419 Weight: 103 kg (227 lb) Height: 1.626 m (5' 4 ) Pain Recent Labs No results found for: CRP No results found for: SEDRATE No results found for: WBC , WBCCOUNT , WBCFETAL , HGB , HCT , PLATELET , MCV Past Medical History: Diagnosis Date Arthritis Deep vein thrombosis (DVT) No past surgical history on file. History reviewed. No pertinent family history. Social History Socioeconomic History Marital status: Single Tobacco Use Smoking status: Never Smokeless tobacco: Never Substance and Sexual Activity Alcohol use: Never Drug use: Never Current Outpatient Medications: Acetaminophen (TYLENOL 8 HOUR ARTHRITIS PAIN PO), Take by mouth., Disp: , Rfl: Allopurinol 100 MG tablet, Take 1 tablet by mouth daily., Disp: , Rfl: Cholecalciferol (Vitamin D-3) 25 MCG (1000 UT) capsule, Take by mouth., Disp: , Rfl: cyanocobalamin 1000 MCG tablet, Take 5 tablets by mouth., Disp: , Rfl: Eliquis 5 MG tablet, 1 tablet., Disp: , Rfl: magnesium oxide 400 (240 Mg) MG, 1 tablet., Disp: , Rfl: Multiple Vitamin (multivitamin) tablet, Take 1 tablet by mouth daily., Disp: , Rfl: omeprazole [address] capsule, 1 capsule., Disp: , Rfl: tolterodine 4 MG Cap SR 24HR, 1 capsule., Disp: , Rfl: Allergies Allergen Reactions Morphine Nausea and Vomiting Other Reaction(s): GI intolerance Other Reaction(s): Unknown Oxycodone Nausea and Vomiting Other Reaction(s): GI intolerance Other Reaction(s): Unknown Penicillins Hives documented in this encounter [facility] Evaluation note Diagnosis Pain of left hip- Primary Osteoarthritis of left hip, unspecified osteoarthritis type [facility] Diagnosis S/P total hip arthroplasty- Primary Hip joint replacement by other means Preop testing Preoperative examination, unspecified Pain in other specified joint Osteoarthritis of left hip, unspecified osteoarthritis type Acute postoperative pain of left hip Status post total replacement of left hip [facility] S/P total left hip arthroplasty- Primary [facility] Diagnosis S/P total left hip arthroplasty- Primary S/P total left hip arthroplasty 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 Acquired absence of kidney [facility] Diagnosis S/P total left hip arthroplasty- Primary S/P total left hip arthroplasty 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 Acquired absence of kidney [facility] Diagnosis S/P total left hip arthroplasty- Primary [facility] Diagnosis Primary osteoarthritis of left hip- Primary Primary localized osteoarthrosis, pelvic region and thigh documented in this encounter [facility] Summary Purpose Family History No Family History Records FoundNo Family History Records FoundNo Family History Records FoundNo Family History Records FoundNo Family History Records FoundNo Family History Records Found Advance Directives Date Activated Date Inactivated Comments 01/19/2024 5:10 PM Date Activated Date Inactivated Comments 01/11/2024 5:47 PM 01/19/2024 5:10 PM Date Activated Date Inactivated Comments 01/19/2024 5:10 PM Date Activated Date Inactivated Comments 01/11/2024 5:47 PM 01/19/2024 5:10 PM Reason for Referral Specialty Diagnoses / Procedures Referred By Abiodun santana Referred To Contact Diagnoses Pain of left hip Procedures XR HIP WITH PELVIS LEFT Erik Heredia MD [address] [place] [id number] Referral ID Status Reason Start Date Expiration Date V isits Requested Visits Authorized [id number] New Request 11/19/2023 12/13/2024 1 1 Specialty Diagnoses / Procedures Referred By Abiodun t Referred To Contact Procedures ECG Luis Monte MD [address] [place] [address] Referral ID Status Reason Start Date Expiration Date V isits Requested Visits Authorized [id number] New Request 01/13/2024 02/06/2025 1 1 Specialty Diagnoses / Procedures Referred By Contac t Referred To Contact [facility] [address] [place] [address] Referral ID Status Reason Start Date Expiration Date Visits Re quested Visits Authorized Specialty Diagnoses / Procedures Referred By Contac t Referred To Contact Diagnoses S/P total left hip arthroplasty Procedures XR HIP WITH PELVIS LEFT Tonya Paige M [address] [place] [address] Referral ID Status Reason Start Date Expiration Date V isits Requested Visits Authorized [id number] New Request 01/26/2024 02/19/2025 1 1 Referral ID Status Reason Start Date Expiration Date V isits Requested Visits Authorized [id number] New Request 02/17/2024 03/13/2025 1 1 Additional Source Comments INFORMATION SOURCE (unrecogn ized section and content) DATE CREATED AUTHOR 11/20/2022 [facility] DATE CREATED AUTHOR AUTHOR'S ORGANIZ ATION 09/19/2023 [facility] DATE CREATED AUTHOR AUTHOR'S ORGANIZ ATION 11/07/[address] [facility] EPIC DATE CREATED AUTHOR AUTHOR'S ORGANIZ ATION 01/10/2024 [facility] DATE CREATED AUTHOR AUTHOR'S ORGANIZ ATION [facility]20[facility] DATE CREATED AUTHOR AUTHOR'S ORGANIZ ATION 03/20/2024 [facility] Reason for Visit (unrecogniz ed section and content) Specialty Diagnoses / Procedures Referred By Contac t Referred To Contact Diagnoses Pain of left hip Procedures XR HIP WITH PELVIS LEFT Erik Heredia MD [address] [place] [address] Referral ID Status Reason Start Date Expiration Date V isits Requested Visits Authorized [id number] New Request 11/19/2023 12/13/2024 1 1 Reason Comments Pain Specialty Diagnoses / Procedures Referred By Contac t Referred To Contact Diagnoses Osteoarthritis of left hip, unspecified osteoarthritis type Osteoarthritis of left hip, unspecified osteoarthritis type [M16.12] Procedures MO ARTHRP ACETBLR/PROX FEM PROSTC AGRFT/ALGRFT ARTHROPLASTY HIP TOTAL LATERAL APPROACH Erik Heredia MD [address] [place] [address] Referral ID Status Reason Start Date Expiration Date Visits Re quested Visits Authorized [id number] 12/06/2023 1 1 Reason Comments Surgical Follow-up 01/11/24 [facility] Specialty Diagnoses / Procedures Referred By Contac t Referred To Contact Diagnoses S/P total left hip arthroplasty Procedures XR HIP WITH PELVIS LEFT Paige Damon [address] [place] [address] Referral ID Status Reason Start Date Expiration Date V isits Requested Visits Authorized [id number] New Request 01/26/2024 02/19/2025 1 1 Referral ID Status Reason Start Date Expiration Date V isits Requested Visits Authorized [id number] New Request 02/17/2024 03/13/2025 1 1 Reason Comments Post Op Visit 01/11/24 Weight beari ng check left total hip arthroplasty Post Op Visit Specialty Diagnoses / Procedures Referred By Abiodun t Referred To Contact Diagnoses Hx of total hip arthroplasty, left Procedures XR HIP WITH PELVIS LEFT Ave Mackey APRN-CNP [address] [place] [address] Referral ID Status Reason Start Date Expiration Date V isits Requested Visits Authorized [id number] New Request 03/07/2024 04/01/2025 1 1 Reason Comments Pain Care Teams (unrecognized sec tion and content) Filer Finish Relationship Specialty Start Date End Date Truman Boo Jr., DO [address] [facility] [address] [place] [address] PCP - General Orthopaedic Surgery 11/04/23 Filer Finish Relationship Specialty Start Date End Date Truman Boo Jr., DO [address] [place] [address] [place] [address] PCP - General Orthopaedic Surgery 11/04/23 12/02/23 Filer Finish Relationship Specialty Start Date End Date Jacob Kuhnbrenda [address] [place] [address] PCP - General Family Medicine 12/03/23 Filer Finish Relationship Specialty Start Date End Date KuhnTian [address] [place] [address] PCP - General Family Medicine 12/03/23 Filer Finish Relationship Specialty Start Date End Date KuhnJacob herrerabrenda [address] [place] [address] PCP - General Family Medicine 12/03/23 Filer Finish Relationship Specialty Start Date End Date Jacob Kuhnbrenda [address] [place] [address] PCP - General Family Medicine 12/03/23 Filer Finish Relationship Specialty Start Date End Date Kuhn Tian, [address] [place] [address] PCP - General Family Medicine 12/03/23 Filer Finish Relationship Specialty Start Date End Date Tian Kuhn [address] [place] [address] PCP - General Family Medicine 12/03/23 Filer Finish Relationship Specialty Start Date End Date Tian Kuhn DO [address] [place] [address] PCP - General Family Medicine 12/03/23 Filer Finish Relationship Specialty Start Date End Date Tian Kuhn DO [address] [place] [address] PCP - General Family Medicine 12/03/23 Scheduled Active and Recently Administ ered Medications (unrecognized section and content) Medication Order 01/17/2024 01/18/2024 01/19/2024 Allopurinol (ZYLOPRIM) tablet 100 mg 100 mg, Oral, DAILY, First dose on Wed01/12/24 at 0900, Until Discontinued 0815 (Given - Provider: Merry Goodwin RN) 0919 (Given - Provider: Amairani Lim RN) 0902 (Given - Provider: Irene Alejandro LPN) apixaban (ELIQUIS) tablet 2.5 mg (CANCELED) 2.5 mg, Oral, EVERY 12 HOURS, First dose on Wed01/12/24 at 0900, Until Discontinued, Start in AM day after surgery, Indications: Venous Thromboembolism, Post-op/Post-Proc 0815 (Given - Provider: Merry Goodwin RN) apixaban (ELIQUIS) tablet 5 mg 5 mg, Oral, EVERY 12 HOURS, First dose on Wed01/17/24 at 2100, Until Discontinued, Due to the rapid onset of action of apixaban, no overlap is needed with other anticoagulants (e.g. enoxaparin, heparin)., Indications: Venous Thromboembolism 2230 (Given - Provider: Fernanda Cantor RN) 09 (Given - Provider: Amairani Lim RN)223 (Given - Provider: Ольга Morales RN) 0944 (Given - Provider: Ada Arteaga RN) ceFAZolin (ANCEF) 2 g in dextrose 100 mL premix IVPB (COMPLETED) 2 g, Intravenous, Administer over 30 Minutes, EVERY 8 HOURS NON-STANDARD, 19 doses, First dose on Wed01/11/24 at 2300, Last dose on Wed01/17/24 at 2300, Post-op/Post-Proc 0633 ($$New Bag$$ - Provider: Angelita Pepe RN)1110 ([employer] - Provider: Merry Goodwin RN)1640 ($$New Bag$$ - Provider: Merry Goodwin RN)2231 ($$New Bag$$ - Provider: Fernanda Cantor RN) Cyclobenzaprine (FLEXERIL) tablet 5 mg 5 mg, Oral, 2 TIMES DAILY, First dose on Wed01/12/24 at 0915, Until Discontinued 0815 (Given - Provider: Merry Goodwin RN)1640 (Given - Provider: Merry Goodwin RN) 0920 (Given - Provider: Amairani Lim RN)1614 (Given - Provider: Amairani Lim RN) 0903 (Given - Provider: Irene Alejandro LPN) Docusate (COLACE) capsule 100 mg 100 mg, Oral, 2 TIMES DAILY, First dose on Wed01/11/24 at 1845, Until Discontinued, Post-op/Post-Proc 0815 (Given - Provider: Merry Goodwin RN)1640 (Given - Provider: Merry Goodwin RN) 0919 (Given - Provider: Amairani Lim RN)1614 (Given - Provider: Amairani Lim RN) 0905 (Given - Provider: Irene Alejandro LPN) Loratadine (CLARITIN) tablet 10 mg 10 mg, Oral, DAILY, First dose on Wed01/19/24 at 1030, Until Discontinued 1030 (Given - Provider: Irene Alejandro LPN) Pantoprazole (PROTONIX) tablet DR 40 mg 40 mg, Oral, DAILY, First dose on Wed01/12/24 at 0900, Until Discontinued, Indications: Continuation of Home Therapy, Inpt Stress Ulcer Prophylaxis 0815 (Given - Provider: Merry Goodwin RN) 0920 (Given - Provider: Amairani Lim RN) 0902 (Given - Provider: Irene Alejandro LPN) Potassium chloride (K-DUR) tablet ER 20 mEq (COMPLETED) 20 mEq, Oral, ONCE, 1 dose, On Wed01/17/24 at 1800, Swallow tablets whole; do not crush, chew, or suck on tablet. Tablet may also be broken in half and each half swallowed separately. 1755 (Given - Provider: Merry Goodwin RN) Tolterodine (DETROL-LA) capsule XL 4 mg 4 mg, Oral, DAILY, First dose on Wed01/12/24 at 0900, Until Discontinued, Swallow the extended-release capsule whole. Do not crush, break, or chew it. 0815 (Given - Provider: Merry Goodwin RN) 0919 (Given - Provider: Amairani Lim, MARY) 0903 (Given - Provider: Irene Alejandro LPN) Continuous Medication Order 01/17/2024 01/18/2024 01/19/2024 Sodium chloride 0.9% IV solution Intravenous, at 75 mL/hr, CONTINUOUS, Starting on Wed01/11/24 at 1845, Until Wed01/19/24 at 1423, Convert IV to PRN adapter post op day 1 if adequate oral intake, Post-op/Post-Proc 0635 ($$New Bag$$ - Provider: Angelita Pepe RN)1111 ([employer] - Provider: Merry Goodwin RN)1643 ([employer] - Provider: Merry Goodwin RN) 0533 ($$New Bag$$ - Provider: Fernanda Cantor RN)0807 (Stopped - Provider: Amairani Lim, MARY) PRN Medication Order 01/17/2024 01/18/2024 01/19/2024 Acetaminophen (TYLENOL) tablet 650 mg 650 mg, Oral, EVERY 4 HOURS NEEDED, Starting on 01/11/24 at 1831, Until Wed01/19/24 at 1423, Mild Pain, Maximum dose of acetaminophen is 4000 mg from all sources in 24 hours, Post-op/Post-Proc bisacodyl (DULCOLAX) suppository 10 mg 10 mg, Rectal, DAILY NEEDED, Starting on e 01/11/24 at 1831, Until Wed01/19/24 at 1423, constipation, Post-op/Post-Proc hydroCODone-acetaminophe n (NORCO) 5-325 MG per tablet 1-2 tablet 1-2 tablet, Oral, EVERY 4 HOURS NEEDED, Starting on Maggie 01/13/24 at 1029, Until Wed01/19/24 at 1423, Severe Pain, Post-op/Post-Proc 0643 (Given - Provider: Angelita Pepe RN)1109 (Given - Provider: Merry Goodwin, MARY)1758 (Given - Provider: Merry Goodwin RN)2235 (Given - Provider: Fernanda Cantor RN) 0533 (Given - Provider: Fernanda Cantor RN) 0035 (Given - Provider: Ольга Morales, MARY)1033 (Given - Provider: Irene Alejandro LPN) HYDROmorphone (DILAUDID) injection 0.5 mg 0.5 mg, Intravenous, EVERY 4 HOURS NEEDED, Starting on Wed01/11/24 at 1831, Until Wed01/19/24 at 1423, Severe Pain, Post-op/Post-Proc Ondansetron 4mg/2ml (ZOFRAN) injection 4 mg 4 mg, Intravenous, EVERY 4 HOURS NEEDED, Starting on Wed01/11/24 at 1831, Until Wed01/19/24 at 1423, Nausea / Vomiting, Post-op/Post-Proc 0920 (Given - Provider: Amairani Lim RN) 0943 (Given - Provider: Ada Arteaga RN) senna-docusate (SENOKOT-S) 8.6-50 MG per tablet 2 tablet 2 tablet, Oral, 2 TIMES DAILY NEEDED, Starting on Wed01/11/24 at 1831, Until Wed01/19/24 at 1423, constipation, Post-op/Post-Proc traMADol (ULTRAM) tablet 50 mg 50 mg, Oral, EVERY 6 HOURS NEEDED, Starting on Wed01/12/24 at 2208, Until Wed01/19/24 at 1423, Moderate Pain 1945 (Given - Provider: Fernanda Cantor RN) 0920 (Given - Provider: Amairani Lim RN)1614 (Given - Provider: Amairani Lim, RN) Zolpidem (AMBIEN) tablet 5 mg 5 mg, Oral, DAILY AT BEDTIME NEEDED, Starting on Wed01/11/24 at 1831, Until Wed01/19/24 at 1423, Sleep, Post-op/Post-Proc 2231 (Given - Provider: Fernanda Cantor RN) 0035 (Given - Provider: Ольга Morales RN) Scheduled Medication Order 02/09/2024 02/10/2024 02/11/2024 Allopurinol (ZYLOPRIM) tablet 100 mg 100 mg, Oral, DAILY, First dose (after last modification) on Wed01/20/24 at 0900, Until Discontinued 0838 (Given - Provider: Anisa Newell LPN) 0842 (Given - Provider: Ramona Mckeon RN) 08 (Given - Provider: Cherri Mastreson LPN) apixaban (ELIQUIS) tablet 5 mg 5 mg, Oral, EVERY 12 HOURS, First dose (after last modification) on Wed01/19/24 at 2100, Until Discontinued, Due to the rapid onset of action of apixaban, no overlap is needed with other anticoagulants (e.g. enoxaparin, heparin)., Indications: Venous Thromboembolism 0838 (Given - Provider: Anisa Newell LPN)2029 (Given - Provider: Kimber Sanchez LPN) 08 (Given - Provider: Ramona Mckeon RN)2113 (Given - Provider: Patricia Malin LPN) 0805 (Given - Provider: Cherri Masterson LPN) clotrimazole-betamethason e (LOTRISONE) 1-0.05 % cream Topical, 2 TIMES DAILY, First dose on Wed02/09/24 at 2015, Until Discontinued 2215 (Not Given - Provider: Kimber Sanchez LPN - Reason: Other - Comment: PENDING CONSULT FROM WOUND CARE) 0843 (Not Given - Provider: Ramona Mckeon RN - Reason: Other - Comment: awaiting wound consult to okay cream)162 (Given - Provider: Ramona Mckeon RN) 0809 (Not Given - Provider: Cherri Masterson LPN - Reason: Patient/family refused) Cyclobenzaprine (FLEXERIL) tablet 5 mg 5 mg, Oral, EVERY 12 HOURS, First dose (after last modification) on Wed01/22/24 at 2100, Until Discontinued 0838 (Given - Provider: Anisa Newell LPN)2029 (Given - Provider: Kimber Sanchez LPN) 0842 (Given - Provider: Ramona Mckeon RN)2111 (Given - Provider: Patricia Malin LPN) 0805 (Given - Provider: Cherri Masterson LPN) Docusate (COLACE) capsule 100 mg 100 mg, Oral, EVERY 12 HOURS, First dose (after last modification) on Wed01/22/24 at 2100, Until Discontinued 0838 (Given - Provider: Anisa Newell LPN)2029 (Given - Provider: Kimber Sanchez LPN) 0842 (Given - Provider: Ramona Mckeon, MARY)2116 (Not Given - Provider: Patricia Malin LPN - Reason: Patient/family refused) 0807 (Not Given - Provider: Cherri Masterson LPN - Reason: Patient/family refused - Comment: Patient refused) ferrous sulfate tablet 325 mg 325 mg, Oral, DAILY, First dose on Wed01/21/24 at 1330, Until Discontinued 0838 (Given - Provider: Anisa Newell LPN) 0842 (Given - Provider: Ramona Mckeon RN) 0805 (Given - Provider: Cherri Masterson LPN) fluconazole (DIFLUCAN) tablet 150 mg 150 mg, Oral, DAILY, First dose on Wed02/09/24 at 2015, Until Discontinued, Swallow tablet whole; do not crush, split or chew. Contact pharmacy if alternate route or dose is needed. 2035 (Given - Provider: Kimber Sanchez LPN) 0841 (Given - Provider: Ramona Mckeon, MARY) 08 (Given - Provider: Cherri Masterson LPN) Lisinopril (PRINIVIL) tablet 5 mg 5 mg, Oral, DAILY, First dose on Wed01/30/24 at 0900, Until Discontinued, Hold if SBP < 100 0838 (Given - Provider: Anisa Newell LPN) 0842 (Given - Provider: Ramona Mckeon, MARY) 0805 (Given - Provider: Cherri Masterson LPN) multivitamin tablet 1 tablet 1 tablet, Oral, DAILY, First dose on Wed01/20/24 at 0900, Until Discontinued 0838 (Given - Provider: Anisa Newell LPN) 0842 (Given - Provider: Ramona Mckeon, MARY) 0806 (Given - Provider: Cherri Masterson LPN) nystatin (MYCOSTATIN) cream 1 Application (CANCELED) 1 Application, Topical, EVERY 12 HOURS, First dose (after last reorder) on Wed02/08/24 at 1045, Until Discontinued, Apply to abd fold, B/L groins, under B/L breasts 0839 (Given - Provider: Anisa Newell LPN) Pantoprazole (PROTONIX) tablet DR 40 mg 40 mg, Oral, DAILY BEFORE BREAKFAST, First dose (after last modification) on Wed02/06/24 at 0600, Until Discontinued, Indications: Continuation of Home Therapy, Inpt Stress Ulcer Prophylaxis 0531 (Given - Provider: Kimber Sanchez LPN) 0611 (Given - Provider: Inge Medeiros, RN) 05 (Given - Provider: Patricia Malin LPN) Polyethylene glycol (MIRALAX) packet 17 g 17 g, Oral, EVERY 12 HOURS, First dose (after last modification) on Wed01/22/24 at 0900, Until Discontinued 0834 (Not Given - Provider: Anisa Newell LPN - Reason: Patient/family refused)2029 (Given - Provider: Kimber Sanchez LPN) 840 (Given - Provider: Ramona Mckeon, RN)2112 (Given - Provider: Patricia Malin LPN) 08 (Not Given - Provider: Cherri Masterson LPN - Reason: Patient/family refused - Comment: Patient refused) Povidone-Iodine (PROFEND) 10 % swab 1 Application 1 Application, Topical, DAILY AT BEDTIME, First dose on Maggie 02/03/24 at 2100, Until Discontinued, Wash incision with dial antibacterial soap prior to application. Apply to left hip incision daily at bedtime per Dr Moreno order Item stocked in SPD 2227 (Given - Provider: Kimber Sanchez LPN) 2117 (Given - Provider: Patricia Malin LPN - Comment: barcode does not scan) senna-docusate (SENOKOT-S) 8.6-50 MG per tablet 2 tablet 2 tablet, Oral, EVERY 12 HOURS, First dose (after last modification) on Wed01/21/24 at 0900, Until Discontinued 0834 (Not Given - Provider: Anisa Newell LPN - Reason: Patient/family refused)2021 (Not Given - Provider: Kimber Sanchez LPN - Reason: Patient/family refused) 0842 (Not Given - Provider: Ramona Mckeon, MARY - Reason: Patient/family refused)2116 (Not Given - Provider: Patricia Malin LPN - Reason: Patient/family refused) 0808 (Not Given - Provider: Cherri Masterson LPN - Reason: Patient/family refused - Comment: Patient refused) Tolterodine (DETROL-LA) capsule XL 4 mg 4 mg, Oral, DAILY, First dose (after last modification) on Maggie 01/20/24 at 0900, Until Discontinued, Swallow the extended-release capsule whole. Do not crush, break, or chew it. 0838 (Given - Provider: Anisa Newell LPN) 0841 (Given - Provider: Ramona Mckeon RN) 0805 (Given - Provider: Cherri Masterson LPN) PRN Medication Order 02/09/2024 02/10/2024 02/11/2024 Acetaminophen (TYLENOL) tablet 650 mg 650 mg, Oral, EVERY 4 HOURS NEEDED, Starting on Wed01/19/24 at 1552, Until Wed02/11/24 at 1545, Mild Pain, May give prior to therapy. bisacodyl (DULCOLAX) suppository 10 mg 10 mg, Rectal, DAILY NEEDED, Starting on Wed01/19/24 at 1709, Until Wed02/11/24 at 1545, Constipation 2nd Line hydroCODone-acetaminophen (NORCO) 5-325 MG per tablet 1 tablet 1 tablet, Oral, EVERY 4 HOURS NEEDED, Starting on Wed01/19/24 at 1752, Until Wed02/11/24 at 1545, Moderate Pain, May have prior to therapy 1059 (Given - Provider: Anisa Newell LPN) 0615 (Given - Provider: Inge Medeiros RN)2005 (Given - Provider: Patricia Malin LPN) 1252 (Given - Provider: Carmine Alonso RN) hydroCODone-acetaminophen (NORCO) 5-325 MG per tablet 2 tablet 2 tablet, Oral, EVERY 4 HOURS NEEDED, Starting on Wed01/19/24 at 1752, Until Wed02/11/24 at 1545, Severe Pain, May have prior to therapy 2226 (Given - Provider: Kimber Sanchez LPN) 2358 (Given - Provider: Patricia Malin LPN) lactulose (CHRONULAC) oral solution 20 g 20 g, Oral, 3 TIMES DAILY NEEDED, Starting on Wed01/21/24 at 0217, Until Wed02/11/24 at 1545, Constipation If No Bowel Movement in 48 Hours ondansetron (ZOFRAN-ODT) disintegrating tablet 4 mg 4 mg, Oral, EVERY 4 HOURS NEEDED, Starting on Wed02/05/24 at 0912, Until Wed02/11/24 at 1545, Nausea / Vomiting Polyethylene glycol (MIRALAX) packet 17 g 17 g, Oral, 3 TIMES DAILY NEEDED, Starting on Wed01/22/24 at 1107, Until Wed02/11/24 at 1545, Constipation 1st Line Zolpidem (AMBIEN) tablet 5 mg 5 mg, Oral, DAILY AT BEDTIME NEEDED, Starting on Wed01/19/24 at 1709, Until Wed02/11/24 at 1545, Sleep 222 (Given - Provider: Kimber Sanchez LPN) 2358 (Given - Provider: Patricia Malin LPN) Scheduled Medication Order 02/09/2024 02/10/2024 02/11/2024 Allopurinol (ZYLOPRIM) tablet 100 mg 100 mg, Oral, DAILY, First dose (after last modification) on Maggie 01/20/24 at 0900, Until Discontinued 0838 (Given - Provider: Anisa Newell LPN) 0842 (Given - Provider: Ramona Mckeon, MARY) 0806 (Given - Provider: Cherri Masterson LPN) apixaban (ELIQUIS) tablet 5 mg 5 mg, Oral, EVERY 12 HOURS, First dose (after last modification) on Wed01/19/24 at 2100, Until Discontinued, Due to the rapid onset of action of apixaban, no overlap is needed with other anticoagulants (e.g. enoxaparin, heparin)., Indications: Venous Thromboembolism 0838 (Given - Provider: Anisa Newell LPN)2030 (Given - Provider: Kimber Sanchez LPN) 0842 (Given - Provider: Ramona Mckeon, RN)211 (Given - Provider: Patricia Malin LPN) 0805 (Given - Provider: Cherri Masterson LPN) clotrimazole-betamethason e (LOTRISONE) 1-0.05 % cream Topical, 2 TIMES DAILY, First dose on Wed02/09/24 at 2015, Until Discontinued 2215 (Not Given - Provider: Kimber Sanchez LPN - Reason: Other - Comment: PENDING CONSULT FROM WOUND CARE) 0843 (Not Given - Provider: Ramona Mckeon RN - Reason: Other - Comment: awaiting wound consult to okay cream)162 (Given - Provider: Ramona Mckeon RN) 08 (Not Given - Provider: Cherri Masterson LPN - Reason: Patient/family refused) Cyclobenzaprine (FLEXERIL) tablet 5 mg 5 mg, Oral, EVERY 12 HOURS, First dose (after last modification) on 01/22/24 at 2100, Until Discontinued 0838 (Given - Provider: Anisa Newell LPN)2029 (Given - Provider: Kimber Sanchez LPN) 0842 (Given - Provider: Ramona Mckeon RN)2111 (Given - Provider: Patricia Malin LPN) 0805 (Given - Provider: Cherri Masterson LPN) Docusate (COLACE) capsule 100 mg 100 mg, Oral, EVERY 12 HOURS, First dose (after last modification) on 01/22/24 at 2100, Until Discontinued 0838 (Given - Provider: Anisa Newell LPN)2029 (Given - Provider: Kimber Sanchez LPN) 08 (Given - Provider: Ramona Mckeon RN)2116 (Not Given - Provider: Patricia Malin LPN - Reason: Patient/family refused) 0807 (Not Given - Provider: Cherri Masterson LPN - Reason: Patient/family refused - Comment: Patient refused) ferrous sulfate tablet 325 mg 325 mg, Oral, DAILY, First dose on Wed01/21/24 at 1330, Until Discontinued 0838 (Given - Provider: Anisa Newell LPN) 0842 (Given - Provider: Ramona Mckeon RN) 0805 (Given - Provider: Cherri Masterson LPN) fluconazole (DIFLUCAN) tablet 150 mg 150 mg, Oral, DAILY, First dose on Wed02/09/24 at 2014, Until Discontinued, Swallow tablet whole; do not crush, split or chew. Contact pharmacy if alternate route or dose is needed. 2035 (Given - Provider: Kimber Sanchez LPN) 0841 (Given - Provider: Ramona Mckeon RN) 0805 (Given - Provider: Cherri Masterson LPN) Lisinopril (PRINIVIL) tablet 5 mg 5 mg, Oral, DAILY, First dose on Wed24 at 0900, Until Discontinued, Hold if SBP < 100 0838 (Given - Provider: Anisa Newell LPN) 0842 (Given - Provider: Ramona Mckeon, MARY) 0805 (Given - Provider: Cherri Masterson LPN) multivitamin tablet 1 tablet 1 tablet, Oral, DAILY, First dose on Maggie 01/20/24 at 0900, Until Discontinued 0838 (Given - Provider: Anisa Newell LPN) 0842 (Given - Provider: Ramona Mckeon RN) 0806 (Given - Provider: Cherri Masterson LPN) nystatin (MYCOSTATIN) cream 1 Application (CANCELED) 1 Application, Topical, EVERY 12 HOURS, First dose (after last reorder) on Wed02/08/24 at 1045, Until Discontinued, Apply to abd fold, B/L groins, under B/L breasts 0839 (Given - Provider: Anisa Newell LPN) Pantoprazole (PROTONIX) tablet DR 40 mg 40 mg, Oral, DAILY BEFORE BREAKFAST, First dose (after last modification) on Wed02/06/24 at 0600, Until Discontinued, Indications: Continuation of Home Therapy, Inpt Stress Ulcer Prophylaxis 0531 (Given - Provider: Kimber Sanchez LPN) 0611 (Given - Provider: Inge Medeiros RN) 0522 (Given - Provider: Patricia Malin LPN) Polyethylene glycol (MIRALAX) packet 17 g 17 g, Oral, EVERY 12 HOURS, First dose (after last modification) on 01/22/24 at 0900, Until Discontinued 0834 (Not Given - Provider: Anisa Newell LPN - Reason: Patient/family refused)2030 (Given - Provider: Kimber Sanchez LPN) 0841 (Given - Provider: Ramona Mckeon, MARY)211 (Given - Provider: Patricia Malin LPN) 0808 (Not Given - Provider: Cherri Masterson LPN - Reason: Patient/family refused - Comment: Patient refused) Povidone-Iodine (PROFEND) 10 % swab 1 Application 1 Application, Topical, DAILY AT BEDTIME, First dose on Maggie 02/03/24 at 2100, Until Discontinued, Wash incision with dial antibacterial soap prior to application. Apply to left hip incision daily at bedtime per Dr Moreno order Item stocked in SPD 2227 (Given - Provider: Kimber Sanchez LPN) 2117 (Given - Provider: Patricia Malin LPN - Comment: barcode does not scan) senna-docusate (SENOKOT-S) 8.6-50 MG per tablet 2 tablet 2 tablet, Oral, EVERY 12 HOURS, First dose (after last modification) on Wed01/21/24 at 0900, Until Discontinued 08 (Not Given - Provider: Anisa Newell LPN - Reason: Patient/family refused)2021 (Not Given - Provider: Kimber Sanchez LPN - Reason: Patient/family refused) 841 (Not Given - Provider: Ramona Mckeon RN - Reason: Patient/family refused)2116 (Not Given - Provider: Patricia Malin LPN - Reason: Patient/family refused) 807 (Not Given - Provider: Cherri Masterson LPN - Reason: Patient/family refused - Comment: Patient refused) Tolterodine (DETROL-LA) capsule XL 4 mg 4 mg, Oral, DAILY, First dose (after last modification) on Wed01/20/24 at 0900, Until Discontinued, Swallow the extended-release capsule whole. Do not crush, break, or chew it. 0838 (Given - Provider: Anisa Newell LPN) 0841 (Given - Provider: Ramona Mckeon, MARY) 0805 (Given - Provider: Cherri Masterson LPN) PRN Medication Order 02/09/2024 02/10/2024 02/11/2024 Acetaminophen (TYLENOL) tablet 650 mg 650 mg, Oral, EVERY 4 HOURS NEEDED, Starting on Wed01/19/24 at 1552, Until Wed02/11/24 at 1545, Mild Pain, May give prior to therapy. bisacodyl (DULCOLAX) suppository 10 mg 10 mg, Rectal, DAILY NEEDED, Starting on Wed01/19/24 at 1709, Until Wed02/11/24 at 1545, Constipation 2nd Line hydroCODone-acetaminophen (NORCO) 5-325 MG per tablet 1 tablet 1 tablet, Oral, EVERY 4 HOURS NEEDED, Starting on Wed01/19/24 at 1752, Until Wed02/11/24 at 1545, Moderate Pain, May have prior to therapy 1059 (Given - Provider: Anisa Newell LPN) 0615 (Given - Provider: Inge Medeiros, RN)2005 (Given - Provider: Patricia Malin LPN) 1252 (Given - Provider: Carmine Alonso, MARY) hydroCODone-acetaminophen (NORCO) 5-325 MG per tablet 2 tablet 2 tablet, Oral, EVERY 4 HOURS NEEDED, Starting on 01/19/24 at 1752, Until Wed02/11/24 at 1545, Severe Pain, May have prior to therapy 2225 (Given - Provider: Kimber Sanchez LPN) 2357 (Given - Provider: Patricia Malin LPN) lactulose (CHRONULAC) oral solution 20 g 20 g, Oral, 3 TIMES DAILY NEEDED, Starting on Wed01/21/24 at 0217, Until Wed02/11/24 at 1545, Constipation If No Bowel Movement in 48 Hours ondansetron (ZOFRAN-ODT) disintegrating tablet 4 mg 4 mg, Oral, EVERY 4 HOURS NEEDED, Starting on 02/05/24 at 0912, Until Wed02/11/24 at 1545, Nausea / Vomiting Polyethylene glycol (MIRALAX) packet 17 g 17 g, Oral, 3 TIMES DAILY NEEDED, Starting on 01/22/24 at 1107, Until Wed02/11/24 at 1545, Constipation 1st Line Zolpidem (AMBIEN) tablet 5 mg 5 mg, Oral, DAILY AT BEDTIME NEEDED, Starting on 01/19/24 at 1709, Until Wed02/11/24 at 1545, Sleep 2225 (Given - Provider: Kimber Sanchez LPN) 2358 (Given - Provider: Patricia Malin LPN) FOR RECORDS PERTAINING TO PATIENTS WHO ARE OR HAVE BEEN ENROLLED IN A CHEMICAL DEPENDENCY/SUBSTANCEABUSE PROGRAM, SOME INFORMATION MAY BE OMITTED. This clinical summary was aggregated from multiple sources. Caution should be exercised in using it in the provision of clinical care. This summary normalizes information from multiple sources, and as a consequence, information in this document may materially change the coding, format and clinical context of patient data. In addition, data may be omitted in some cases. CLINICAL DECISIONS SHOULD BE BASED ON THE PRIMARY CLINICAL RECORDS. [facility] [employer]. provides no warranty or guarantee of the accuracy or completeness of information in this document.
[2024-05-01 18:21] LABS: INR 1.12; Partial Thromboplastin Time 29.1 sec (22.3-36.2); Prothrombin Time 11.7 sec (9.0-11.6)
[2024-05-01 18:23] LABS: Alanine Aminotransferase 9 U/L (14-59); Albumin Globulin Ratio 0.7; Albumin Level 3.2 g/dL (3.4-5.0); Alkaline Phosphatase 120 U/L (46-116); Aspartate Amino Transferase 16 U/L (15-37); BUN Creatinine Ratio 17.3; Bilirubin Total 0.2 mg/dL (0.2-1.0); Calcium 9.9 mg/dL (8.5-10.1); Chloride 104 mmol/L (98-107); Estimated GFR (African America >60 (>=60 mL/min/1.73m^2); Estimated GFR (Non-African Ame 51 (>=60 mL/min/1.73m^2); Globulin 4.3 g/dL; Glucose 103 mg/dL (74-106); Sodium 139 mmol/L (136-145); Total Protein 7.5 g/dL (6.4-8.2); Troponin I High Sensitivity 9.6 pg/mL (4.0-51.3)
[2024-05-01 19:20] LABS: Troponin I High Sensitivity 8.9 pg/mL (4.0-51.3)
--- OUTSIDE RECORDS SUMMARY | 2024-05-01 21:09 | XMS_ITS | CCD ---
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 Name Role Phone DR TIAN KUHN Primary [...] Unavailable Kuhn Tian CIFUENTES Primary Care Provider [phone] Kuhn Tian CIFUENTES Primary Care Provider [phone] REBECCA, MOHAN Admitting Unavailable REBECCAROBERTAN Attending Unavailable [...] TIAN Primary Care Unavailable RAJEEV TRUMAN [facility] Care Unavailable YAN, ERIK Referring Unavailable ERIK HEREDIA Attending Unavailable KUHN, TIAN Primary Care Unavailable ERIK HEREDIA Referring Unavailable ERIK HEREDIA Attending Unavailable ERIK HEREDIA Admitting Unavailable Allergies Allergy Classification Reported Allergen(s) Allergy Type Date of Onset Reaction(s) Facility (4 sources) Morphine; 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: [MORPHINE] Drug Allergy 7 [facility] Repository (12 sources) oxyCODONE; 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: [OXYCODONE] Drug Allergy 7 Nausea and Vomiting [facility] Repository (11 sources) Morphine Drug Allergy 7 Nausea and Vomiting [facility] (11 sources) Penicillins Propensity to adverse reactions to drug 4 [facility] Medications Current Medications Medication Drug Class(es) Dates [...] Corticosteroid Start: 02-09-2024 End: 02-11-2024 bifidobacterium animalis [id number] unt / lactobacillus acidophilus [id number] unt oral capsule (2 sources) Start: 01-22-2024 [...] docusate sodium 50 mg / alberta osides, senior care 8.6 mg oral tablet (5 sources) Start: [...] 01/19/2024 Discontinued (Stop Taking at Discharge) nystatin [id number] unt/ml topic al cream (8 sources) Polyene [...] Start: 01-12-2024 End: 02-11-2024 polyethylene glycol [id number] mg powder for oral solution (6 sources) [...] 01-11-2024 Chronic Other aftercare (1 source) Other alf (current) drug therapy; 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: [OTH CORE MOUNTER CURRENT DRUG THERAPY] Onset: 11-19-2022 Episodic Other aftercare (1 source) long-term (current) use of non-steroidal anti-inflammatories (NSAID); 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: [CORE MOUNTER USE NSAID] Onset: 11-19-2022 Episodic Other and [...] Anion gap [Moles/Vol] 3 mmol/L Low 8-16 [facility] Calcium [Mass/Vol] 9.1 mg/dL Normal 8.4-10.2 [facility] Chloride [Moles/Vol] 104 mmol/L Normal 98-107 [facility] Comment on above: Result Comment: Shonda matthews note: Triglyceride levels of 600mg/dL or higher may positively bias chloride results by approximately 2.1 mmol CO2 [Moles/Vol] 28 mmol/L Normal 22-30 [facility] Creatinine [Mass/Vol] 0.80 mg/dL Normal 0.7-1.2 [facility] EST. GFR, 89 ml/min/1.73sq.m Normal [facility] EST. GFR,Non 73 ml/min/1.73sq.m [facility] GFR Information Average GFR for 70+ years old = 75. Normal [facility] Comment on above: Result Comment: Beater Dumper aviva Kidney disease, GFR = <60. Kidney failure, GFR = <15. The GFR estimate is not adjusted for extreme body surface area or acute process, nor has it been validated for women or ethnic groups other than and . Glucose [Mass/Vol] 98 mg/dL Normal 70-100 [facility] Comment on above: Result Comment: NORMAL <100 mg/dL PREDIABETES 101-126 mg/dL DIABETES 126 mg/dL or higher Potassium [Moles/Vol] 4.5 mmol/L Normal 3.5-5.1 [facility] Sodium [Moles/Vol] 135 mmol/L Low 137-145 [facility] Urea nitrogen [Mass/Vol] 16 mg/dL Normal 7-20 [facility] C REACTIVE PROTEINon 024 CRP [Mass/Vol] 22.8 mg/L High 0-10 [facility] CBCon 02-11-2024 ABSOLUTE BAS 0.0 10*3/uL Normal 0.0-0.2 [facility] ABSOLUTE EOS 0.2 10*3/uL Normal 0.0-0.7 [facility] ABSOLUTE NEUTROPHIL COUNT 2.8 10*3/uL Normal 1.4-6.5 [facility] Basophils/100 WBC (Bld) 1.0 % Normal 0.0-2.0 [facility] DTYPE AUTO DIFF Normal [facility] Eosinophils/100 WBC (Bld) 4.1 % Normal 0.0-11.0 [facility] Lymphocytes (Bld) [#/Vol] 1.3 10*3/uL Normal 1.2-3.4 [facility] Lymphocytes/100 WBC (Bld) 25.8 % Normal 20.0-55.0 [facility] Monocytes (Bld) [#/Vol] 0.7 10*3/uL Normal 0.0-0.7 [facility] Monocytes/100 WBC (Bld) 13.4 % High 0.0-10.0 [facility] Neutrophils/100 WBC (Bld) 55.7 % Normal 37.0-75.0 [facility] Erythrocyte distribution width (RBC) [Ratio] 15.2 % High 11.5-14.5 [facility] Hematocrit (Bld) [Volume fraction] 31.9 % Low 36.0-48.0 [facility] Hemoglobin (Bld) [Mass/Vol] 10.7 g/dL Low 12.0-16.0 [facility] MCH (RBC) [Entitic mass] 32.2 pg Normal 26.0-35.0 [facility] MCHC (RBC) [Mass/Vol] 33.6 g/dL Normal 27.0-37.0 [facility] MCV (RBC) [Entitic vol] 96.1 fL Normal 80.0-100.0 [facility] Platelet mean volume (Bld) [Entitic vol] 7.2 fL Low 7.4-11.0 [facility] Platelets (Bld) [#/Vol] 368 10*3/uL Normal 130-400 [facility] RBC (Bld) [#/Vol] 3.32 10*6/uL Low 4.0-5.4 [facility] WBC (Bld) [#/Vol] 5.0 10*3/uL Normal 3.6-11.0 [facility] Laboratory - Chemistry and C hemistry - challengeon 02-11-2024 Anion gap [Moles/Vol] 3 mmol/L Low [facility] Calcium [Mass/Vol] 9.1 mg/dL [facility] Chloride [Moles/Vol] 104 mmol/L [facility] CO2 [Moles/Vol] 28 mmol/L [facility] Creatinine [Mass/Vol] 0.80 mg/dL [facility] CRP [Mass/Vol] 22.8 mg/L High 0 - 10 MG/L [facility] GFR/1.73 sq M.predicted among blacks MDRD (S/P/Bld) [Vol rate/Area] 89 mL/min/{1.73_m2} ml/min/1.73sq .m [facility] GFR/1.73 sq M.predicted among non-blacks MDRD (S/P/Bld) [Vol rate/Area] 73 mL/min/{1.73_m2} ml/min/1.73sq .m [facility] Glucose post fast [Mass/Vol] 98 mg/dL [facility] Potassium [Moles/Vol] 4.5 mmol/L [facility] Sodium [Moles/Vol] 135 mmol/L Low [facility] Urea nitrogen [Mass/Vol] 16 mg/dL [facility] Laboratory - Hematology and Cell countson 02-11-2024 Basophils/100 WBC (Bld) 1.0 % 0.0 - 2.0 % [facility] Differential cell count method Nom (Bld) AUTO DIFF % [facility] Eosinophils (Bld) [#/Vol] 0.2 10*3/uL 0.0 - 0.7 10*3/uL [facility] Eosinophils/100 WBC (Bld) 4.1 % 0.0 - 11.0 % [facility] Erythrocyte distribution width (RBC) [Ratio] 15.2 % High 11.5 - 14.5 % [facility] Hematocrit (Bld) [Volume fraction] 31.9 % Low 36.0 - 48.0 % [facility] Hemoglobin (Bld) [Mass/Vol] 10.7 g/dL Low [facility] Lymphocytes (Bld) [#/Vol] 1.3 10*3/uL 1.2 - 3.4 10*3/uL [facility] Lymphocytes/100 WBC (Bld) 25.8 % 20.0 - 55.0 % [facility] MCH (RBC) [Entitic mass] 32.2 pg 26.0 - 35.0 PG [facility] MCHC (RBC) [Mass/Vol] 33.6 g/dL [facility] MCV (RBC) [Entitic vol] 96.1 fL [facility] Monocytes (Bld) [#/Vol] 0.7 10*3/uL 0.0 - 0.7 10*3/uL [facility] Monocytes/100 WBC (Bld) 13.4 % High 0.0 - 10.0 % [facility] Neutrophils (Bld) [#/Vol] 2.8 10*3/uL 1.4 - 6.5 10*3/uL [facility] Neutrophils/100 WBC (Bld) 55.7 % 37.0 - 75.0 % [facility] Platelet mean volume (Bld) [Entitic vol] 7.2 fL Low [facility] Platelets (Bld) [#/Vol] 368 10*3/uL 130 - 400 10*3/uL [facility] RBC (Bld) [#/Vol] 3.32 10*6/uL Low 4.0 - 5.4 10*6/uL [facility] WBC (Bld) [#/Vol] 5.0 10*3/uL 3.6 - 11.0 10*3/uL [facility] No Panel Informationon 02-10 GFR COMMENT Average GFR for 70+ years old = 75. [facility] Interpretation and review of laboratory results Abnormal [facility] ABSOLUTE BASOPHIL COUNT 0.0 10*3/uL 0.0 - 0.2 10*3/uL [facility] Interpretation and review of laboratory results Abnormal [facility] BMP FASTINGon 02-10-2024 Anion gap [Moles/Vol] 1 mmol/L Low 8-16 [facility] Calcium [Mass/Vol] 8.8 mg/dL Normal 8.4-10.2 [facility] Chloride [Moles/Vol] 105 mmol/L Normal 98-107 [facility] Comment on above: Result Comment: Shonda matthews note: Triglyceride levels of 600mg/dL or higher may positively bias chloride results by approximately 2.1 mmol CO2 [Moles/Vol] 29 mmol/L Normal 22-30 [facility] Creatinine [Mass/Vol] 0.80 mg/dL Normal 0.7-1.2 [facility] EST. GFR, 89 ml/min/1.73sq.m Normal [facility] EST. GFR,Non 73 ml/min/1.73sq.m Normal [facility] GFR Information Average GFR for 70+ years old = 75. Normal [facility] Comment on above: Result Comment: Beater Dumper aviva Kidney disease, GFR = <60. Kidney failure, GFR = <15. The GFR estimate is not adjusted for extreme body surface area or acute process, nor has it been validated for women or ethnic groups other than and . Glucose [Mass/Vol] 97 mg/dL Normal 70-100 [facility] Comment on above: Result Comment: NORMAL <100 mg/dL PREDIABETES 101-126 mg/dL DIABETES 126 mg/dL or higher Potassium [Moles/Vol] 4.3 mmol/L Normal 3.5-5.1 [facility] Sodium [Moles/Vol] 135 mmol/L Low 137-145 [facility] Urea nitrogen [Mass/Vol] 19 mg/dL Normal 7-20 [facility] C REACTIVE PROTEINon 024 CRP [Mass/Vol] 18.6 mg/L High 0-10 [facility] CBCon 02-10-2024 ABSOLUTE BAS 0.0 10*3/uL Normal 0.0-0.2 [facility] ABSOLUTE EOS 0.2 10*3/uL Normal 0.0-0.7 [facility] ABSOLUTE NEUTROPHIL COUNT 3.8 10*3/uL Normal 1.4-6.5 [facility] Basophils/100 WBC (Bld) 0.6 % Normal 0.0-2.0 [facility] DTYPE AUTO DIFF Normal [facility] Eosinophils/100 WBC (Bld) 3.1 % Normal 0.0-11.0 [facility] Lymphocytes (Bld) [#/Vol] 1.6 10*3/uL Normal 1.2-3.4 [facility] Lymphocytes/100 WBC (Bld) 24.9 % Normal 20.0-55.0 [facility] Monocytes (Bld) [#/Vol] 0.7 10*3/uL Normal 0.0-0.7 [facility] Monocytes/100 WBC (Bld) 11.0 % High 0.0-10.0 [facility] Neutrophils/100 WBC (Bld) 60.4 % Normal 37.0-75.0 [facility] Erythrocyte distribution width (RBC) [Ratio] 15.2 % High 11.5-14.5 [facility] Hematocrit (Bld) [Volume fraction] 31.7 % Low 36.0-48.0 [facility] Hemoglobin (Bld) [Mass/Vol] 10.7 g/dL Low 12.0-16.0 [facility] MCH (RBC) [Entitic mass] 32.1 pg Normal 26.0-35.0 [facility] MCHC (RBC) [Mass/Vol] 33.6 g/dL Normal 27.0-37.0 [facility] MCV (RBC) [Entitic vol] 95.6 fL Normal 80.0-100.0 [facility] Platelet mean volume (Bld) [Entitic vol] 7.2 fL Low 7.4-11.0 [facility] Platelets (Bld) [#/Vol] 369 10*3/uL Normal 130-400 [facility] RBC (Bld) [#/Vol] 3.32 10*6/uL Low 4.0-5.4 [facility] WBC (Bld) [#/Vol] 6.3 10*3/uL Normal 3.6-11.0 [facility] Laboratory - Chemistry and C hemistry - challengeon 02-10-2024 Anion gap [Moles/Vol] 1 mmol/L Low [facility] Calcium [Mass/Vol] 8.8 mg/dL [facility] Chloride [Moles/Vol] 105 mmol/L [facility] CO2 [Moles/Vol] 29 mmol/L [facility] Creatinine [Mass/Vol] 0.80 mg/dL [facility] CRP [Mass/Vol] 18.6 mg/L High 0 - 10 MG/L [facility] GFR/1.73 sq M.predicted among blacks MDRD (S/P/Bld) [Vol rate/Area] 89 mL/min/{1.73_m2} ml/min/1.73sq .m [facility] GFR/1.73 sq M.predicted among non-blacks MDRD (S/P/Bld) [Vol rate/Area] 73 mL/min/{1.73_m2} ml/min/1.73sq .m [facility] Glucose post fast [Mass/Vol] 97 mg/dL [facility] Potassium [Moles/Vol] 4.3 mmol/L [facility] Sodium [Moles/Vol] 135 mmol/L Low [facility] Urea nitrogen [Mass/Vol] 19 mg/dL [facility] Laboratory - Hematology and Cell countson 02-10-2024 Basophils/100 WBC (Bld) 0.6 % 0.0 - 2.0 % [facility] Differential cell count method Nom (Bld) AUTO DIFF % [facility] Eosinophils (Bld) [#/Vol] 0.2 10*3/uL 0.0 - 0.7 10*3/uL [facility] Eosinophils/100 WBC (Bld) 3.1 % 0.0 - 11.0 % [facility] Erythrocyte distribution width (RBC) [Ratio] 15.2 % High 11.5 - 14.5 % [facility] Hematocrit (Bld) [Volume fraction] 31.7 % Low 36.0 - 48.0 % [facility] Hemoglobin (Bld) [Mass/Vol] 10.7 g/dL Low [facility] Lymphocytes (Bld) [#/Vol] 1.6 10*3/uL 1.2 - 3.4 10*3/uL [facility] Lymphocytes/100 WBC (Bld) 24.9 % 20.0 - 55.0 % [facility] MCH (RBC) [Entitic mass] 32.1 pg 26.0 - 35.0 PG [facility] MCHC (RBC) [Mass/Vol] 33.6 g/dL [facility] MCV (RBC) [Entitic vol] 95.6 fL [facility] Monocytes (Bld) [#/Vol] 0.7 10*3/uL 0.0 - 0.7 10*3/uL [facility] Monocytes/100 WBC (Bld) 11.0 % High 0.0 - 10.0 % [facility] Neutrophils (Bld) [#/Vol] 3.8 10*3/uL 1.4 - 6.5 10*3/uL [facility] Neutrophils/100 WBC (Bld) 60.4 % 37.0 - 75.0 % [facility] Platelet mean volume (Bld) [Entitic vol] 7.2 fL Low [facility] Platelets (Bld) [#/Vol] 369 10*3/uL 130 - 400 10*3/uL [facility] RBC (Bld) [#/Vol] 3.32 10*6/uL Low 4.0 - 5.4 10*6/uL [facility] WBC (Bld) [#/Vol] 6.3 10*3/uL 3.6 - 11.0 10*3/uL [facility] No Panel Informationon 02-09 GFR COMMENT Average GFR for 70+ years old = 75. [facility] Interpretation and review of laboratory results Abnormal [facility] ABSOLUTE BASOPHIL COUNT 0.0 10*3/uL 0.0 - 0.2 10*3/uL [facility] Interpretation and review of laboratory results Abnormal [facility] BMP FASTINGon 02-09-2024 Anion gap [Moles/Vol] 3 mmol/L Low 8-16 [facility] Calcium [Mass/Vol] 9.1 mg/dL Normal 8.4-10.2 [facility] Chloride [Moles/Vol] 104 mmol/L Normal 98-107 [facility] Comment on above: Result Comment: Shonda matthews note: Triglyceride levels of 600mg/dL or higher may positively bias chloride results by approximately 2.1 mmol CO2 [Moles/Vol] 28 mmol/L Normal 22-30 [facility] Creatinine [Mass/Vol] 0.90 mg/dL Normal 0.7-1.2 [facility] EST. GFR, 77 ml/min/1.73sq.m Normal [facility] EST. GFR,Non 64 ml/min/1.73sq.m Normal [facility] GFR Information Average GFR for 70+ years old = 75. Normal [facility] Comment on above: Result Comment: Beater Dumper aviva Kidney disease, GFR = <60. Kidney failure, GFR = <15. The GFR estimate is not adjusted for extreme body surface area or acute process, nor has it been validated for women or ethnic groups other than and . Glucose [Mass/Vol] 103 mg/dL High 70-100 [facility] Comment on above: Result Comment: NORMAL <100 mg/dL PREDIABETES 101-126 mg/dL DIABETES 126 mg/dL or higher Potassium [Moles/Vol] 4.5 mmol/L Normal 3.5-5.1 [facility] Sodium [Moles/Vol] 135 mmol/L Low 137-145 [facility] Urea nitrogen [Mass/Vol] 20 mg/dL Normal 7-20 [facility] C REACTIVE PROTEINon 02-08- 024 CRP [Mass/Vol] 21.2 mg/L High 0-10 [facility] CBCon 02-09-2024 ABSOLUTE BAS 0.1 10*3/uL Normal 0.0-0.2 [facility] ABSOLUTE EOS 0.2 10*3/uL Normal 0.0-0.7 [facility] ABSOLUTE NEUTROPHIL COUNT 3.7 10*3/uL Normal 1.4-6.5 [facility] Basophils/100 WBC (Bld) 0.9 % Normal 0.0-2.0 [facility] DTYPE AUTO DIFF Normal [facility] Eosinophils/100 WBC (Bld) 2.9 % Normal 0.0-11.0 [facility] Lymphocytes (Bld) [#/Vol] 1.8 10*3/uL Normal 1.2-3.4 [facility] Lymphocytes/100 WBC (Bld) 27.8 % Normal 20.0-55.0 [facility] Monocytes (Bld) [#/Vol] 0.7 10*3/uL Normal 0.0-0.7 [facility] Monocytes/100 WBC (Bld) 10.8 % High 0.0-10.0 [facility] Neutrophils/100 WBC (Bld) 57.6 % Normal 37.0-75.0 [facility] Erythrocyte distribution width (RBC) [Ratio] 15.1 % High 11.5-14.5 [facility] Hematocrit (Bld) [Volume fraction] 34.2 % Low 36.0-48.0 [facility] Hemoglobin (Bld) [Mass/Vol] 11.4 g/dL Low 12.0-16.0 [facility] MCH (RBC) [Entitic mass] 32.0 pg Normal 26.0-35.0 [facility] MCHC (RBC) [Mass/Vol] 33.4 g/dL Normal 27.0-37.0 [facility] MCV (RBC) [Entitic vol] 96.0 fL Normal 80.0-100.0 [facility] Platelet mean volume (Bld) [Entitic vol] 7.4 fL Normal 7.4-11.0 [facility] Platelets (Bld) [#/Vol] 401 10*3/uL High 130-400 [facility] RBC (Bld) [#/Vol] 3.56 10*6/uL Low 4.0-5.4 [facility] WBC (Bld) [#/Vol] 6.4 10*3/uL Normal 3.6-11.0 [facility] Laboratory - Chemistry and C hemistry - challengeon 02-09-2024 Anion gap [Moles/Vol] 3 mmol/L Low [facility] Calcium [Mass/Vol] 9.1 mg/dL [facility] Chloride [Moles/Vol] 104 mmol/L [facility] CO2 [Moles/Vol] 28 mmol/L [facility] Creatinine [Mass/Vol] 0.90 mg/dL [facility] CRP [Mass/Vol] 21.2 mg/L High 0 - 10 MG/L [facility] GFR/1.73 sq M.predicted among blacks MDRD (S/P/Bld) [Vol rate/Area] 77 mL/min/{1.73_m2} ml/min/1.73sq .m [facility] GFR/1.73 sq M.predicted among non-blacks MDRD (S/P/Bld) [Vol rate/Area] 64 mL/min/{1.73_m2} ml/min/1.73sq .m [facility] Glucose post fast [Mass/Vol] 103 mg/dL High [facility] Potassium [Moles/Vol] 4.5 mmol/L [facility] Sodium [Moles/Vol] 135 mmol/L Low [facility] Urea nitrogen [Mass/Vol] 20 mg/dL [facility] Laboratory - Hematology and Cell countson 02-09-2024 Basophils/100 WBC (Bld) 0.9 % 0.0 - 2.0 % [facility] Differential cell count method Nom (Bld) AUTO DIFF % [facility] Eosinophils (Bld) [#/Vol] 0.2 10*3/uL 0.0 - 0.7 10*3/uL [facility] Eosinophils/100 WBC (Bld) 2.9 % 0.0 - 11.0 % [facility] Erythrocyte distribution width (RBC) [Ratio] 15.1 % High 11.5 - 14.5 % [facility] Hematocrit (Bld) [Volume fraction] 34.2 % Low 36.0 - 48.0 % [facility] Hemoglobin (Bld) [Mass/Vol] 11.4 g/dL Low [facility] Lymphocytes (Bld) [#/Vol] 1.8 10*3/uL 1.2 - 3.4 10*3/uL [facility] Lymphocytes/100 WBC (Bld) 27.8 % 20.0 - 55.0 % [facility] MCH (RBC) [Entitic mass] 32.0 pg 26.0 - 35.0 PG [facility] MCHC (RBC) [Mass/Vol] 33.4 g/dL [facility] MCV (RBC) [Entitic vol] 96.0 fL [facility] Monocytes (Bld) [#/Vol] 0.7 10*3/uL 0.0 - 0.7 10*3/uL [facility] Monocytes/100 WBC (Bld) 10.8 % High 0.0 - 10.0 % [facility] Neutrophils (Bld) [#/Vol] 3.7 10*3/uL 1.4 - 6.5 10*3/uL [facility] Neutrophils/100 WBC (Bld) 57.6 % 37.0 - 75.0 % [facility] Platelet mean volume (Bld) [Entitic vol] 7.4 fL [facility] Platelets (Bld) [#/Vol] 401 10*3/uL High 130 - 400 10*3/uL [facility] RBC (Bld) [#/Vol] 3.56 10*6/uL Low 4.0 - 5.4 10*6/uL [facility] WBC (Bld) [#/Vol] 6.4 10*3/uL 3.6 - 11.0 10*3/uL [facility] No Panel Informationon 02-08 GFR COMMENT Average GFR for 70+ years old = 75. [facility] Interpretation and review of laboratory results Abnormal [facility] ABSOLUTE BASOPHIL COUNT 0.1 10*3/uL 0.0 - 0.2 10*3/uL [facility] Interpretation and review of laboratory results Abnormal [facility] BMP FASTINGon 02-08-2024 Anion gap [Moles/Vol] Negative Normal 8-16 [facility] Calcium [Mass/Vol] 8.9 mg/dL Normal 8.4-10.2 [facility] Chloride [Moles/Vol] 104 mmol/L Normal 98-107 [facility] Comment on above: Result Comment: Shonda matthews note: Triglyceride levels of 600mg/dL or higher may positively bias chloride results by approximately 2.1 mmol CO2 [Moles/Vol] 30 mmol/L Normal 22-30 [facility] Creatinine [Mass/Vol] 0.80 mg/dL Normal 0.7-1.2 [facility] EST. GFR, 89 ml/min/1.73sq.m Normal [facility] EST. GFR,Non 73 ml/min/1.73sq.m Normal [facility] GFR Information Average GFR for 70+ years old = 75. Normal [facility] Comment on above: Result Comment: Beater Dumper aviva Kidney disease, GFR = <60. Kidney failure, GFR = <15. The GFR estimate is not adjusted for extreme body surface area or acute process, nor has it been validated for women or ethnic groups other than and . Glucose [Mass/Vol] 96 mg/dL Normal 70-100 [facility] Comment on above: Result Comment: NORMAL <100 mg/dL PREDIABETES 101-126 mg/dL DIABETES 126 mg/dL or higher Potassium [Moles/Vol] 4.3 mmol/L Normal 3.5-5.1 [facility] Sodium [Moles/Vol] 133 mmol/L Low 137-145 [facility] Urea nitrogen [Mass/Vol] 14 mg/dL Normal 7-20 [facility] C REACTIVE PROTEINon 02-07- 024 CRP [Mass/Vol] 22.2 mg/L High 0-10 [facility] CBCon 02-08-2024 ABSOLUTE BAS 0.1 10*3/uL Normal 0.0-0.2 [facility] ABSOLUTE EOS 0.2 10*3/uL Normal 0.0-0.7 [facility] ABSOLUTE NEUTROPHIL COUNT 3.2 10*3/uL Normal 1.4-6.5 [facility] Basophils/100 WBC (Bld) 1.0 % Normal 0.0-2.0 [facility] DTYPE AUTO DIFF Normal [facility] Eosinophils/100 WBC (Bld) 3.5 % Normal 0.0-11.0 [facility] Lymphocytes (Bld) [#/Vol] 1.5 10*3/uL Normal 1.2-3.4 [facility] Lymphocytes/100 WBC (Bld) 26.3 % Normal 20.0-55.0 [facility] Monocytes (Bld) [#/Vol] 0.6 10*3/uL Normal 0.0-0.7 [facility] Monocytes/100 WBC (Bld) 11.2 % High 0.0-10.0 [facility] Neutrophils/100 WBC (Bld) 58.0 % Normal 37.0-75.0 [facility] Erythrocyte distribution width (RBC) [Ratio] 15.3 % High 11.5-14.5 [facility] Hematocrit (Bld) [Volume fraction] 30.8 % Low 36.0-48.0 [facility] Hemoglobin (Bld) [Mass/Vol] 10.4 g/dL Low 12.0-16.0 [facility] MCH (RBC) [Entitic mass] 32.1 pg Normal 26.0-35.0 [facility] MCHC (RBC) [Mass/Vol] 33.7 g/dL Normal 27.0-37.0 [facility] MCV (RBC) [Entitic vol] 95.1 fL Normal 80.0-100.0 [facility] Platelet mean volume (Bld) [Entitic vol] 7.4 fL Normal 7.4-11.0 [facility] Platelets (Bld) [#/Vol] 368 10*3/uL Normal 130-400 [facility] RBC (Bld) [#/Vol] 3.24 10*6/uL Low 4.0-5.4 [facility] WBC (Bld) [#/Vol] 5.5 10*3/uL Normal 3.6-11.0 [facility] ESRon 02-08-2024 ESR (Bld) [Velocity] 75 mm/h High 0-30 [facility] Laboratory - Chemistry and C hemistry - challengeon 02-08-2024 Anion gap [Moles/Vol] Negative [facility] Calcium [Mass/Vol] 8.9 mg/dL [facility] Chloride [Moles/Vol] 104 mmol/L [facility] CO2 [Moles/Vol] 30 mmol/L [facility] Creatinine [Mass/Vol] 0.80 mg/dL [facility] CRP [Mass/Vol] 22.2 mg/L High 0 - 10 MG/L [facility] GFR/1.73 sq M.predicted among blacks MDRD (S/P/Bld) [Vol rate/Area] 89 mL/min/{1.73_m2} ml/min/1.73sq .m [facility] GFR/1.73 sq M.predicted among non-blacks MDRD (S/P/Bld) [Vol rate/Area] 73 mL/min/{1.73_m2} ml/min/1.73sq .m [facility] Glucose post fast [Mass/Vol] 96 mg/dL [facility] Potassium [Moles/Vol] 4.3 mmol/L [facility] Sodium [Moles/Vol] 133 mmol/L Low [facility] Urea nitrogen [Mass/Vol] 14 mg/dL [facility] Laboratory - Hematology and Cell countson 02-08-2024 ESR (Bld) [Velocity] 75 mm/h High [facility] Basophils/100 WBC (Bld) 1.0 % 0.0 - 2.0 % [facility] Differential cell count method Nom (Bld) AUTO DIFF % [facility] Eosinophils (Bld) [#/Vol] 0.2 10*3/uL 0.0 - 0.7 10*3/uL [facility] Eosinophils/100 WBC (Bld) 3.5 % 0.0 - 11.0 % [facility] Erythrocyte distribution width (RBC) [Ratio] 15.3 % High 11.5 - 14.5 % [facility] Hematocrit (Bld) [Volume fraction] 30.8 % Low 36.0 - 48.0 % [facility] Hemoglobin (Bld) [Mass/Vol] 10.4 g/dL Low [facility] Lymphocytes (Bld) [#/Vol] 1.5 10*3/uL 1.2 - 3.4 10*3/uL [facility] Lymphocytes/100 WBC (Bld) 26.3 % 20.0 - 55.0 % [facility] MCH (RBC) [Entitic mass] 32.1 pg 26.0 - 35.0 PG [facility] MCHC (RBC) [Mass/Vol] 33.7 g/dL [facility] MCV (RBC) [Entitic vol] 95.1 fL [facility] Monocytes (Bld) [#/Vol] 0.6 10*3/uL 0.0 - 0.7 10*3/uL [facility] Monocytes/100 WBC (Bld) 11.2 % High 0.0 - 10.0 % [facility] Neutrophils (Bld) [#/Vol] 3.2 10*3/uL 1.4 - 6.5 10*3/uL [facility] Neutrophils/100 WBC (Bld) 58.0 % 37.0 - 75.0 % [facility] Platelet mean volume (Bld) [Entitic vol] 7.4 fL [facility] Platelets (Bld) [#/Vol] 368 10*3/uL 130 - 400 10*3/uL [facility] RBC (Bld) [#/Vol] 3.24 10*6/uL Low 4.0 - 5.4 10*6/uL [facility] WBC (Bld) [#/Vol] 5.5 10*3/uL 3.6 - 11.0 10*3/uL [facility] No Panel Informationon 02-07 Interpretation and review of laboratory results Abnormal [facility] GFR COMMENT Average GFR for 70+ years old = 75. [facility] Interpretation and review of laboratory results Abnormal [facility] ABSOLUTE BASOPHIL COUNT 0.1 10*3/uL 0.0 - 0.2 10*3/uL [facility] Interpretation and review of laboratory results Abnormal [facility] BMP FASTINGon 02-07-2024 Anion gap [Moles/Vol] 1 mmol/L Low 8-16 [facility] Comment on above: Performed By: #### A CBC #### Testing performed at [place] [address] [place] [address] Calcium [Mass/Vol] 8.8 mg/dL Normal 8.4-10.2 [facility] Comment on above: Performed By: #### A CBC #### Testing performed at [place] [address] [place] [id number] Chloride [Moles/Vol] 105 mmol/L Normal 98-107 [facility] Comment on above: Result Comment: Plebowen matthews note: Triglyceride levels of 600mg/dL or higher may positively bias chloride results by approximately 2.1 mmol Performed By: #### A CBC #### Testing performed at [place] [id number] CO2 [Moles/Vol] 27 mmol/L Normal 22-30 [facility] Comment on above: Performed By: #### A CBC #### Testing performed at [place] [id number] Creatinine [Mass/Vol] 0.70 mg/dL Normal 0.7-1.2 [facility] Comment on above: Performed By: #### A CBC #### Testing performed at [address] [address] EST. GFR, 103 ml/min/1.73sq.m [facility] Comment on above: Performed By: #### A CBC #### Testing performed at [place] [id number] EST. GFR,Non 85 ml/min/1.73sq.m [facility] Comment on above: Performed By: #### A CBC #### Testing performed at [place] [id number] GFR Information Average GFR for 70+ years old = 75. Normal [facility] Comment on above: Result Comment: Beater Dumper aviva Kidney disease, GFR = <60. Kidney failure, GFR = <15. The GFR estimate is not adjusted for extreme body surface area or acute process, nor has it been validated for women or ethnic groups other than and . Performed By: #### A CBC #### Testing performed at [place] [id number] Glucose [Mass/Vol] 95 mg/dL Normal 70-100 [facility] Comment on above: Result Comment: NORMAL <100 mg/dL PREDIABETES 101-126 mg/dL DIABETES 126 mg/dL or higher Performed By: #### A CBC #### Testing performed at [address] [place] [address] Potassium [Moles/Vol] 4.3 mmol/L Normal 3.5-5.1 [facility] Comment on above: Performed By: #### A CBC #### Testing performed at [address] [address] Sodium [Moles/Vol] 133 mmol/L Low 137-145 [facility] Comment on above: Performed By: #### A CBC #### Testing performed at [address] [address] Urea nitrogen [Mass/Vol] 11 mg/dL Normal 7-20 [facility] Comment on above: Performed By: #### A CBC #### Testing performed at [address] [address] C REACTIVE PROTEINon 024 CRP [Mass/Vol] 19.6 mg/L High 0-10 [facility] Comment on above: Performed By: #### A CBC #### Testing performed at [address] [address] CBCon 02-07-2024 ABSOLUTE BAS 0.0 10*3/uL Normal 0.0-0.2 [facility] Comment on above: Performed By: #### A CBC #### Testing performed at [address] [address] ABSOLUTE EOS 0.2 10*3/uL Normal 0.0-0.7 [facility] Comment on above: Performed By: #### A CBC #### Testing performed at [address] [address] ABSOLUTE NEUTROPHIL COUNT 2.8 10*3/uL Normal 1.4-6.5 [facility] Comment on above: Performed By: #### A CBC #### Testing performed at [address] [address] Basophils/100 WBC (Bld) 0.9 % Normal 0.0-2.0 [facility] Comment on above: Performed By: #### A CBC #### Testing performed at [address] [place] [place] [address] DTYPE AUTO DIFF Normal [facility] Comment on above: Performed By: #### A CBC #### Testing performed at [place] [address] [place] [address] Eosinophils/100 WBC (Bld) 3.8 % Normal 0.0-11.0 [facility] Comment on above: Performed By: #### A CBC #### Testing performed at [address] [address] Lymphocytes (Bld) [#/Vol] 1.4 10*3/uL Normal 1.2-3.4 [facility] Comment on above: Performed By: #### A CBC #### Testing performed at [address] [address] Lymphocytes/100 WBC (Bld) 28.3 % Normal 20.0-55.0 [facility] Comment on above: Performed By: #### A CBC #### Testing performed at [address] [address] Monocytes (Bld) [#/Vol] 0.6 10*3/uL Normal 0.0-0.7 [facility] Comment on above: Performed By: #### A CBC #### Testing performed at [address] [address] Monocytes/100 WBC (Bld) 12.4 % High 0.0-10.0 [facility] Comment on above: Performed By: #### A CBC #### Testing performed at [address] [address] Neutrophils/100 WBC (Bld) 54.6 % Normal 37.0-75.0 [facility] Comment on above: Performed By: #### A CBC #### Testing performed at [address] [address] Erythrocyte distribution width (RBC) [Ratio] 16.0 % High 11.5-14.5 [facility] Comment on above: Performed By: #### A CBC #### Testing performed at [address] [address] Hematocrit (Bld) [Volume fraction] 31.7 % Low 36.0-48.0 [facility] Comment on above: Performed By: #### A CBC #### Testing performed at [address] [address] Hemoglobin (Bld) [Mass/Vol] 10.5 g/dL Low 12.0-16.0 [facility] Comment on above: Performed By: #### A CBC #### Testing performed at [address] [address] MCH (RBC) [Entitic mass] 32.5 pg Normal 26.0-35.0 [facility] Comment on above: Performed By: #### A CBC #### Testing performed at [address] [address] MCHC (RBC) [Mass/Vol] 33.1 g/dL Normal 27.0-37.0 [facility] Comment on above: Performed By: #### A CBC #### Testing performed at [address] [address] MCV (RBC) [Entitic vol] 98.4 fL Normal 80.0-100.0 [facility] Comment on above: Performed By: #### A CBC #### Testing performed at [address] [address] Platelet mean volume (Bld) [Entitic vol] 7.2 fL Low 7.4-11.0 [facility] Comment on above: Performed By: #### A CBC #### Testing performed at [address] [address] Platelets (Bld) [#/Vol] 366 10*3/uL Normal 130-400 [facility] Comment on above: Performed By: #### A CBC #### Testing performed at [place] [address] [place] [address] RBC (Bld) [#/Vol] 3.23 10*6/uL Low 4.0-5.4 [facility] Comment on above: Performed By: #### A CBC #### Testing performed at [place] [address] [place] [address] WBC (Bld) [#/Vol] 5.1 10*3/uL Normal 3.6-11.0 [facility] Comment on above: Performed By: #### A CBC #### [place] [address] Laboratory - Chemistry and C hemistry - challengeon 02-07-2024 Anion gap [Moles/Vol] 1 mmol/L Low [facility] Calcium [Mass/Vol] 8.8 mg/dL [facility] Chloride [Moles/Vol] 105 mmol/L [facility] CO2 [Moles/Vol] 27 mmol/L [facility] Creatinine [Mass/Vol] 0.70 mg/dL [facility] CRP [Mass/Vol] 19.6 mg/L High 0 - 10 MG/L [facility] GFR/1.73 sq M.predicted among blacks MDRD (S/P/Bld) [Vol rate/Area] 103 mL/min/{1.73_m2} ml/min/1.73sq .m [facility] GFR/1.73 sq M.predicted among non-blacks MDRD (S/P/Bld) [Vol rate/Area] 85 mL/min/{1.73_m2} ml/min/1.73sq .m [facility] Glucose post fast [Mass/Vol] 95 mg/dL [facility] Potassium [Moles/Vol] 4.3 mmol/L [facility] Sodium [Moles/Vol] 133 mmol/L Low [facility] Urea nitrogen [Mass/Vol] 11 mg/dL [facility] Laboratory - Hematology and Cell countson 02-07-2024 Basophils/100 WBC (Bld) 0.9 % 0.0 - 2.0 % [facility] Differential cell count method Nom (Bld) AUTO DIFF % [facility] Eosinophils (Bld) [#/Vol] 0.2 10*3/uL 0.0 - 0.7 10*3/uL [facility] Eosinophils/100 WBC (Bld) 3.8 % 0.0 - 11.0 % [facility] Erythrocyte distribution width (RBC) [Ratio] 16.0 % High 11.5 - 14.5 % [facility] Hematocrit (Bld) [Volume fraction] 31.7 % Low 36.0 - 48.0 % [facility] Hemoglobin (Bld) [Mass/Vol] 10.5 g/dL Low [facility] Lymphocytes (Bld) [#/Vol] 1.4 10*3/uL 1.2 - 3.4 10*3/uL [facility] Lymphocytes/100 WBC (Bld) 28.3 % 20.0 - 55.0 % [facility] MCH (RBC) [Entitic mass] 32.5 pg 26.0 - 35.0 PG [facility] MCHC (RBC) [Mass/Vol] 33.1 g/dL [facility] MCV (RBC) [Entitic vol] 98.4 fL [facility] Monocytes (Bld) [#/Vol] 0.6 10*3/uL 0.0 - 0.7 10*3/uL [facility] Monocytes/100 WBC (Bld) 12.4 % High 0.0 - 10.0 % [facility] Neutrophils (Bld) [#/Vol] 2.8 10*3/uL 1.4 - 6.5 10*3/uL [facility] Neutrophils/100 WBC (Bld) 54.6 % 37.0 - 75.0 % [facility] Platelet mean volume (Bld) [Entitic vol] 7.2 fL Low [facility] Platelets (Bld) [#/Vol] 366 10*3/uL 130 - 400 10*3/uL [facility] RBC (Bld) [#/Vol] 3.23 10*6/uL Low 4.0 - 5.4 10*6/uL [facility] WBC (Bld) [#/Vol] 5.1 10*3/uL 3.6 - 11.0 10*3/uL [facility] No Panel Informationon 02-06 ABSOLUTE BASOPHIL COUNT 0.0 10*3/uL 0.0 - 0.2 10*3/uL [facility] Interpretation and review of laboratory results Abnormal [facility] GFR COMMENT Average GFR for 70+ years old = 75. [facility] Interpretation and review of laboratory results Abnormal [facility] BMP FASTINGon 02-06-2024 Anion gap [Moles/Vol] 2 mmol/L Low 8-16 [facility] Calcium [Mass/Vol] 8.6 mg/dL Normal 8.4-10.2 [facility] Chloride [Moles/Vol] 104 mmol/L Normal 98-107 [facility] Comment on above: Result Comment: Shonda matthews note: Triglyceride levels of 600mg/dL or higher may positively bias chloride results by approximately 2.1 mmol CO2 [Moles/Vol] 29 mmol/L Normal 22-30 [facility] Creatinine [Mass/Vol] 0.80 mg/dL Normal 0.7-1.2 [facility] EST. GFR, 89 ml/min/1.73sq.m Normal [facility] EST. GFR,Non 73 ml/min/1.73sq.m Normal [facility] GFR Information Average GFR for 70+ years old = 75. Normal [facility] Comment on above: Result Comment: Beater Dumper aviva Kidney disease, GFR = <60. Kidney failure, GFR = <15. The GFR estimate is not adjusted for extreme body surface area or acute process, nor has it been validated for women or ethnic groups other than and . Glucose [Mass/Vol] 100 mg/dL Normal 70-100 [facility] Comment on above: Result Comment: NORMAL <100 mg/dL PREDIABETES 101-126 mg/dL DIABETES 126 mg/dL or higher Potassium [Moles/Vol] 4.4 mmol/L Normal 3.5-5.1 [facility] Sodium [Moles/Vol] 135 mmol/L Low 137-145 [facility] Urea nitrogen [Mass/Vol] 17 mg/dL Normal 7-20 [facility] C REACTIVE PROTEINon 024 CRP [Mass/Vol] 22.7 mg/L High 0-10 [facility] CBCon 02-06-2024 ABSOLUTE BAS 0.0 10*3/uL Normal 0.0-0.2 [facility] ABSOLUTE EOS 0.2 10*3/uL Normal 0.0-0.7 [facility] ABSOLUTE NEUTROPHIL COUNT 3.4 10*3/uL Normal 1.4-6.5 [facility] Basophils/100 WBC (Bld) 0.8 % Normal 0.0-2.0 [facility] DTYPE AUTO DIFF Normal [facility] Eosinophils/100 WBC (Bld) 2.8 % Normal 0.0-11.0 [facility] Lymphocytes (Bld) [#/Vol] 1.5 10*3/uL Normal 1.2-3.4 [facility] Lymphocytes/100 WBC (Bld) 25.0 % Normal 20.0-55.0 [facility] Monocytes (Bld) [#/Vol] 0.8 10*3/uL High 0.0-0.7 [facility] Monocytes/100 WBC (Bld) 12.9 % High 0.0-10.0 [facility] Neutrophils/100 WBC (Bld) 58.5 % Normal 37.0-75.0 [facility] Erythrocyte distribution width (RBC) [Ratio] 15.2 % High 11.5-14.5 [facility] Hematocrit (Bld) [Volume fraction] 29.6 % Low 36.0-48.0 [facility] Hemoglobin (Bld) [Mass/Vol] 10.1 g/dL Low 12.0-16.0 [facility] MCH (RBC) [Entitic mass] 32.5 pg Normal 26.0-35.0 [facility] MCHC (RBC) [Mass/Vol] 34.0 g/dL Normal 27.0-37.0 [facility] MCV (RBC) [Entitic vol] 95.7 fL Normal 80.0-100.0 [facility] Platelet mean volume (Bld) [Entitic vol] 6.7 fL Low 7.4-11.0 [facility] Platelets (Bld) [#/Vol] 365 10*3/uL Normal 130-400 [facility] RBC (Bld) [#/Vol] 3.10 10*6/uL Low 4.0-5.4 [facility] WBC (Bld) [#/Vol] 5.8 10*3/uL Normal 3.6-11.0 [facility] Laboratory - Chemistry and C hemistry - challengeon 02-06-2024 Anion gap [Moles/Vol] 2 mmol/L Low [facility] Calcium [Mass/Vol] 8.6 mg/dL [facility] Chloride [Moles/Vol] 104 mmol/L [facility] CO2 [Moles/Vol] 29 mmol/L [facility] Creatinine [Mass/Vol] 0.80 mg/dL [facility] CRP [Mass/Vol] 22.7 mg/L High 0 - 10 MG/L [facility] GFR/1.73 sq M.predicted among blacks MDRD (S/P/Bld) [Vol rate/Area] 89 mL/min/{1.73_m2} ml/min/1.73sq .m [facility] GFR/1.73 sq M.predicted among non-blacks MDRD (S/P/Bld) [Vol rate/Area] 73 mL/min/{1.73_m2} ml/min/1.73sq .m [facility] Glucose post fast [Mass/Vol] 100 mg/dL [facility] Potassium [Moles/Vol] 4.4 mmol/L [facility] Sodium [Moles/Vol] 135 mmol/L Low [facility] Urea nitrogen [Mass/Vol] 17 mg/dL [facility] Laboratory - Hematology and Cell countson 02-06-2024 Basophils/100 WBC (Bld) 0.8 % 0.0 - 2.0 % [facility] Differential cell count method Nom (Bld) AUTO DIFF % [facility] Eosinophils (Bld) [#/Vol] 0.2 10*3/uL 0.0 - 0.7 10*3/uL [facility] Eosinophils/100 WBC (Bld) 2.8 % 0.0 - 11.0 % [facility] Erythrocyte distribution width (RBC) [Ratio] 15.2 % High 11.5 - 14.5 % [facility] Hematocrit (Bld) [Volume fraction] 29.6 % Low 36.0 - 48.0 % [facility] Hemoglobin (Bld) [Mass/Vol] 10.1 g/dL Low [facility] Lymphocytes (Bld) [#/Vol] 1.5 10*3/uL 1.2 - 3.4 10*3/uL [facility] Lymphocytes/100 WBC (Bld) 25.0 % 20.0 - 55.0 % [facility] MCH (RBC) [Entitic mass] 32.5 pg 26.0 - 35.0 PG [facility] MCHC (RBC) [Mass/Vol] 34.0 g/dL [facility] MCV (RBC) [Entitic vol] 95.7 fL [facility] Monocytes (Bld) [#/Vol] 0.8 10*3/uL High 0.0 - 0.7 10*3/uL [facility] Monocytes/100 WBC (Bld) 12.9 % High 0.0 - 10.0 % [facility] Neutrophils (Bld) [#/Vol] 3.4 10*3/uL 1.4 - 6.5 10*3/uL [facility] Neutrophils/100 WBC (Bld) 58.5 % 37.0 - 75.0 % [facility] Platelet mean volume (Bld) [Entitic vol] 6.7 fL Low [facility] Platelets (Bld) [#/Vol] 365 10*3/uL 130 - 400 10*3/uL [facility] RBC (Bld) [#/Vol] 3.10 10*6/uL Low 4.0 - 5.4 10*6/uL [facility] WBC (Bld) [#/Vol] 5.8 10*3/uL 3.6 - 11.0 10*3/uL [facility] No Panel Informationon 02-05 GFR COMMENT Average GFR for 70+ years old = 75. [facility] Interpretation and review of laboratory results Abnormal [facility] ABSOLUTE BASOPHIL COUNT 0.0 10*3/uL 0.0 - 0.2 10*3/uL [facility] Interpretation and review of laboratory results Abnormal [facility] BMP FASTINGon 02-04-2023 Anion gap [Moles/Vol] 1 mmol/L Low 8-16 [facility] Comment on above: Performed By: #### A CBC ####Testing performed at [address] [address] Calcium [Mass/Vol] 8.8 mg/dL Normal 8.4-10.2 [facility] Comment on above: Performed By: #### A CBC ####Testing performed at [address] [address] Chloride [Moles/Vol] 104 mmol/L Normal 98-107 [facility] Comment on above: Result Comment: Shonda matthews note: Triglyceride levels of 600mg/dL or higher may positively bias chloride results by approximately 2.1 mmol Performed By: #### A CBC ####Testing performed at [address] [address] CO2 [Moles/Vol] 30 mmol/L Normal 22-30 [facility] Comment on above: Performed By: #### A CBC ####Testing performed at [address] [address] Creatinine [Mass/Vol] 0.80 mg/dL Normal 0.7-1.2 [facility] Comment on above: Performed By: #### A CBC ####Testing performed at [address] [address] EST. GFR, 89 ml/min/1.73sq.m [facility] Comment on above: Performed By: #### A CBC ####Testing performed at [address] [address] EST. GFR,Non 73 ml/min/1.73sq.m [facility] Comment on above: Performed By: #### A CBC ####Testing performed at [address] [address] GFR Information Average GFR for 70+ years old = 75. Normal [facility] Comment on above: Result Comment: Beater Dumper aviva Kidney disease, GFR = <60. Kidney failure, GFR = <15. The GFR estimate is not adjusted for extreme body surface area or acute process, nor has it been validated for women or ethnic groups other than and . Performed By: #### A CBC ####Testing performed at [address] [address] Glucose [Mass/Vol] 101 mg/dL High 70-100 [facility] Comment on above: Result Comment: NORMAL <100 mg/dL PREDIABETES 101-126 mg/dL DIABETES 126 mg/dL or higher Performed By: #### A CBC ####Testing performed at [address] [address] Potassium [Moles/Vol] 4.3 mmol/L Normal 3.5-5.1 [facility] Comment on above: Performed By: #### A CBC ####Testing performed at [address] [address] Sodium [Moles/Vol] 135 mmol/L Low 137-145 [facility] Comment on above: Performed By: #### A CBC ####Testing performed at [address] [address] Urea nitrogen [Mass/Vol] 14 mg/dL Normal 7-20 [facility] Comment on above: Performed By: #### A CBC ####Testing performed at [address] [address] C REACTIVE PROTEINon 02-04- 024 CRP [Mass/Vol] 21.0 mg/L High 0-10 [facility] Comment on above: Performed By: #### A CBC ####Testing performed at [address] [address] CBCon 02-05-2024 ABSOLUTE BAS 0.0 10*3/uL Normal 0.0-0.2 [facility] Comment on above: Performed By: #### A CBC ####Testing performed at [address] [place] [address] ABSOLUTE EOS 0.1 10*3/uL Normal 0.0-0.7 [facility] Comment on above: Performed By: #### A CBC ####Testing performed at [address] [address] ABSOLUTE NEUTROPHIL COUNT 3.1 10*3/uL Normal 1.4-6.5 [facility] Comment on above: Performed By: #### A CBC ####Testing performed at [address] [address] Basophils/100 WBC (Bld) 0.9 % Normal 0.0-2.0 [facility] Comment on above: Performed By: #### A CBC ####Testing performed at [address] [place] [address] DTYPE AUTO DIFF Normal [facility] Comment on above: Performed By: #### A CBC ####Testing performed at [address] [place] [address] Eosinophils/100 WBC (Bld) 2.6 % Normal 0.0-11.0 [facility] Comment on above: Performed By: #### A CBC ####Testing performed at [address] [place] [address] Lymphocytes (Bld) [#/Vol] 1.2 10*3/uL Normal 1.2-3.4 [facility] Comment on above: Performed By: #### A CBC ####Testing performed at [address] [place] [address] Lymphocytes/100 WBC (Bld) 23.7 % Normal 20.0-55.0 [facility] Comment on above: Performed By: #### A CBC ####Testing performed at [address] [address] Monocytes (Bld) [#/Vol] 0.6 10*3/uL Normal 0.0-0.7 [facility] Comment on above: Performed By: #### A CBC ####Testing performed at [address] [address] Monocytes/100 WBC (Bld) 11.8 % High 0.0-10.0 [facility] Comment on above: Performed By: #### A CBC ####Testing performed at [place] [id number] Neutrophils/100 WBC (Bld) 61.0 % Normal 37.0-75.0 [facility] Comment on above: Performed By: #### A CBC ####[place] [address] Erythrocyte distribution width (RBC) [Ratio] 15.2 % High 11.5-14.5 [facility] Comment on above: Performed By: #### A CBC ####Testing performed at [address] [address] Hematocrit (Bld) [Volume fraction] 30.8 % Low 36.0-48.0 [facility] Comment on above: Performed By: #### A CBC ####Testing performed at [address] [address] Hemoglobin (Bld) [Mass/Vol] 10.4 g/dL Low 12.0-16.0 [facility] Comment on above: Performed By: #### A CBC ####Testing performed at [address] [address] MCH (RBC) [Entitic mass] 32.3 pg Normal 26.0-35.0 [facility] Comment on above: Performed By: #### A CBC ####Testing performed at [address] [address] MCHC (RBC) [Mass/Vol] 33.7 g/dL Normal 27.0-37.0 [facility] Comment on above: Performed By: #### A CBC ####Testing performed at [address] [address] MCV (RBC) [Entitic vol] 95.8 fL Normal 80.0-100.0 [facility] Comment on above: Performed By: #### A CBC ####Testing performed at [address] [address] Platelet mean volume (Bld) [Entitic vol] 6.6 fL Low 7.4-11.0 [facility] Comment on above: Performed By: #### A CBC ####[place] [address] Platelets (Bld) [#/Vol] 378 10*3/uL Normal 130-400 [facility] Comment on above: Performed By: #### A CBC ####Testing performed at [address] [address] RBC (Bld) [#/Vol] 3.22 10*6/uL Low 4.0-5.4 [facility] Comment on above: Performed By: #### A CBC ####Testing performed at [address] [address] WBC (Bld) [#/Vol] 5.0 10*3/uL Normal 3.6-11.0 [facility] Comment on above: Performed By: #### A CBC ####Testing performed at [address] [address] Laboratory - Chemistry and C hemistry - challengeon 02-05-2024 Anion gap [Moles/Vol] 1 mmol/L Low [facility] Calcium [Mass/Vol] 8.8 mg/dL [facility] Chloride [Moles/Vol] 104 mmol/L [facility] CO2 [Moles/Vol] 30 mmol/L [facility] Creatinine [Mass/Vol] 0.80 mg/dL [facility] CRP [Mass/Vol] 21.0 mg/L High 0 - 10 MG/L [facility] GFR/1.73 sq M.predicted among blacks MDRD (S/P/Bld) [Vol rate/Area] 89 mL/min/{1.73_m2} ml/min/1.73sq .m [facility] GFR/1.73 sq M.predicted among non-blacks MDRD (S/P/Bld) [Vol rate/Area] 73 mL/min/{1.73_m2} ml/min/1.73sq .m [facility] Glucose post fast [Mass/Vol] 101 mg/dL High [facility] Potassium [Moles/Vol] 4.3 mmol/L [facility] Sodium [Moles/Vol] 135 mmol/L Low [facility] Urea nitrogen [Mass/Vol] 14 mg/dL [facility] Laboratory - Hematology and Cell countson 02-05-2024 Basophils/100 WBC (Bld) 0.9 % 0.0 - 2.0 % [facility] Differential cell count method Nom (Bld) AUTO DIFF % [facility] Eosinophils (Bld) [#/Vol] 0.1 10*3/uL 0.0 - 0.7 10*3/uL [facility] Eosinophils/100 WBC (Bld) 2.6 % 0.0 - 11.0 % [facility] Erythrocyte distribution width (RBC) [Ratio] 15.2 % High 11.5 - 14.5 % [facility] Hematocrit (Bld) [Volume fraction] 30.8 % Low 36.0 - 48.0 % [facility] Hemoglobin (Bld) [Mass/Vol] 10.4 g/dL Low [facility] Lymphocytes (Bld) [#/Vol] 1.2 10*3/uL 1.2 - 3.4 10*3/uL [facility] Lymphocytes/100 WBC (Bld) 23.7 % 20.0 - 55.0 % [facility] MCH (RBC) [Entitic mass] 32.3 pg 26.0 - 35.0 PG [facility] MCHC (RBC) [Mass/Vol] 33.7 g/dL [facility] MCV (RBC) [Entitic vol] 95.8 fL [facility] Monocytes (Bld) [#/Vol] 0.6 10*3/uL 0.0 - 0.7 10*3/uL [facility] Monocytes/100 WBC (Bld) 11.8 % High 0.0 - 10.0 % [facility] Neutrophils (Bld) [#/Vol] 3.1 10*3/uL 1.4 - 6.5 10*3/uL [facility] Neutrophils/100 WBC (Bld) 61.0 % 37.0 - 75.0 % [facility] Platelet mean volume (Bld) [Entitic vol] 6.6 fL Low [facility] Platelets (Bld) [#/Vol] 378 10*3/uL 130 - 400 10*3/uL [facility] RBC (Bld) [#/Vol] 3.22 10*6/uL Low 4.0 - 5.4 10*6/uL [facility] WBC (Bld) [#/Vol] 5.0 10*3/uL 3.6 - 11.0 10*3/uL [facility] No Panel Informationon 02-04 GFR COMMENT Average GFR for 70+ years old = 75. [facility] Interpretation and review of laboratory results Abnormal [facility] ABSOLUTE BASOPHIL COUNT 0.0 10*3/uL 0.0 - 0.2 10*3/uL [facility] Interpretation and review of laboratory results Abnormal [facility] BMP FASTINGon 02-04-2024 Anion gap [Moles/Vol] 1 mmol/L Low 8-16 [facility] Calcium [Mass/Vol] 8.8 mg/dL Normal 8.4-10.2 [facility] Chloride [Moles/Vol] 104 mmol/L Normal 98-107 [facility] Comment on above: Result Comment: Shonda matthews note: Triglyceride levels of 600mg/dL or higher may positively bias chloride results by approximately 2.1 mmol CO2 [Moles/Vol] 31 mmol/L High 22-30 [facility] Creatinine [Mass/Vol] 0.80 mg/dL Normal 0.7-1.2 [facility] EST. GFR, 89 ml/min/1.73sq.m Normal [facility] EST. GFR,Non 73 ml/min/1.73sq.m Normal [facility] GFR Information Average GFR for 70+ years old = 75. Normal [facility] Comment on above: Result Comment: Beater Dumper aviva Kidney disease, GFR = <60. Kidney failure, GFR = <15. The GFR estimate is not adjusted for extreme body surface area or acute process, nor has it been validated for women or ethnic groups other than and . Glucose [Mass/Vol] 96 mg/dL Normal 70-100 [facility] Comment on above: Result Comment: NORMAL <100 mg/dL PREDIABETES 101-126 mg/dL DIABETES 126 mg/dL or higher Potassium [Moles/Vol] 4.4 mmol/L Normal 3.5-5.1 [facility] Sodium [Moles/Vol] 136 mmol/L Low 137-145 [facility] Urea nitrogen [Mass/Vol] 18 mg/dL Normal 7-20 [facility] C REACTIVE PROTEINon 024 CRP [Mass/Vol] 21.4 mg/L High 0-10 [facility] CBCon 02-04-2024 ABSOLUTE BAS 0.0 10*3/uL Normal 0.0-0.2 [facility] ABSOLUTE EOS 0.2 10*3/uL Normal 0.0-0.7 [facility] ABSOLUTE NEUTROPHIL COUNT 3.5 10*3/uL Normal 1.4-6.5 [facility] Basophils/100 WBC (Bld) 0.7 % Normal 0.0-2.0 [facility] DTYPE AUTO DIFF Normal [facility] Eosinophils/100 WBC (Bld) 3.2 % Normal 0.0-11.0 [facility] Lymphocytes (Bld) [#/Vol] 1.5 10*3/uL Normal 1.2-3.4 [facility] Lymphocytes/100 WBC (Bld) 24.7 % Normal 20.0-55.0 [facility] Monocytes (Bld) [#/Vol] 0.8 10*3/uL High 0.0-0.7 [facility] Monocytes/100 WBC (Bld) 12.5 % High 0.0-10.0 [facility] Neutrophils/100 WBC (Bld) 58.9 % Normal 37.0-75.0 [facility] Erythrocyte distribution width (RBC) [Ratio] 15.5 % High 11.5-14.5 [facility] Hematocrit (Bld) [Volume fraction] 30.0 % Low 36.0-48.0 [facility] Hemoglobin (Bld) [Mass/Vol] 10.2 g/dL Low 12.0-16.0 [facility] MCH (RBC) [Entitic mass] 32.4 pg Normal 26.0-35.0 [facility] MCHC (RBC) [Mass/Vol] 33.8 g/dL Normal 27.0-37.0 [facility] MCV (RBC) [Entitic vol] 95.7 fL Normal 80.0-100.0 [facility] Platelet mean volume (Bld) [Entitic vol] 6.8 fL Low 7.4-11.0 [facility] Platelets (Bld) [#/Vol] 415 10*3/uL High 130-400 [facility] RBC (Bld) [#/Vol] 3.14 10*6/uL Low 4.0-5.4 [facility] WBC (Bld) [#/Vol] 6.0 10*3/uL Normal 3.6-11.0 [facility] Laboratory - Chemistry and C hemistry - challengeon 02-04-2024 Anion gap [Moles/Vol] 1 mmol/L Low [facility] Calcium [Mass/Vol] 8.8 mg/dL [facility] Chloride [Moles/Vol] 104 mmol/L [facility] CO2 [Moles/Vol] 31 mmol/L High [facility] Creatinine [Mass/Vol] 0.80 mg/dL [facility] CRP [Mass/Vol] 21.4 mg/L High 0 - 10 MG/L [facility] GFR/1.73 sq M.predicted among blacks MDRD (S/P/Bld) [Vol rate/Area] 89 mL/min/{1.73_m2} ml/min/1.73sq .m [facility] GFR/1.73 sq M.predicted among non-blacks MDRD (S/P/Bld) [Vol rate/Area] 73 mL/min/{1.73_m2} ml/min/1.73sq .m [facility] Glucose post fast [Mass/Vol] 96 mg/dL [facility] Potassium [Moles/Vol] 4.4 mmol/L [facility] Sodium [Moles/Vol] 136 mmol/L Low [facility] Urea nitrogen [Mass/Vol] 18 mg/dL [facility] Laboratory - Hematology and Cell countson 02-04-2024 Basophils/100 WBC (Bld) 0.7 % 0.0 - 2.0 % [facility] Differential cell count method Nom (Bld) AUTO DIFF % [facility] Eosinophils (Bld) [#/Vol] 0.2 10*3/uL 0.0 - 0.7 10*3/uL [facility] Eosinophils/100 WBC (Bld) 3.2 % 0.0 - 11.0 % [facility] Erythrocyte distribution width (RBC) [Ratio] 15.5 % High 11.5 - 14.5 % [facility] Hematocrit (Bld) [Volume fraction] 30.0 % Low 36.0 - 48.0 % [facility] Hemoglobin (Bld) [Mass/Vol] 10.2 g/dL Low [facility] Lymphocytes (Bld) [#/Vol] 1.5 10*3/uL 1.2 - 3.4 10*3/uL [facility] Lymphocytes/100 WBC (Bld) 24.7 % 20.0 - 55.0 % [facility] MCH (RBC) [Entitic mass] 32.4 pg 26.0 - 35.0 PG [facility] MCHC (RBC) [Mass/Vol] 33.8 g/dL [facility] MCV (RBC) [Entitic vol] 95.7 fL [facility] Monocytes (Bld) [#/Vol] 0.8 10*3/uL High 0.0 - 0.7 10*3/uL [facility] Monocytes/100 WBC (Bld) 12.5 % High 0.0 - 10.0 % [facility] Neutrophils (Bld) [#/Vol] 3.5 10*3/uL 1.4 - 6.5 10*3/uL [facility] Neutrophils/100 WBC (Bld) 58.9 % 37.0 - 75.0 % [facility] Platelet mean volume (Bld) [Entitic vol] 6.8 fL Low [facility] Platelets (Bld) [#/Vol] 415 10*3/uL High 130 - 400 10*3/uL [facility] RBC (Bld) [#/Vol] 3.14 10*6/uL Low 4.0 - 5.4 10*6/uL [facility] WBC (Bld) [#/Vol] 6.0 10*3/uL 3.6 - 11.0 10*3/uL [facility] No Panel Informationon 02-03 ABSOLUTE BASOPHIL COUNT 0.0 10*3/uL 0.0 - 0.2 10*3/uL [facility] Interpretation and review of laboratory results Abnormal [facility] GFR COMMENT Average GFR for 70+ years old = 75. [facility] Interpretation and review of laboratory results Abnormal [facility] BMP FASTINGon 02-03-2024 Anion gap [Moles/Vol] 2 mmol/L Low 8-16 [facility] Calcium [Mass/Vol] 9.1 mg/dL Normal 8.4-10.2 [facility] Chloride [Moles/Vol] 104 mmol/L Normal 98-107 [facility] Comment on above: Result Comment: Shonda matthews note: Triglyceride levels of 600mg/dL or higher may positively bias chloride results by approximately 2.1 mmol CO2 [Moles/Vol] 29 mmol/L Normal 22-30 [facility] Creatinine [Mass/Vol] 0.90 mg/dL Normal 0.7-1.2 [facility] EST. GFR, 77 ml/min/1.73sq.m Normal [facility] EST. GFR,Non 64 ml/min/1.73sq.m Normal [facility] GFR Information Average GFR for 70+ years old = 75. Normal [facility] Comment on above: Result Comment: Beater Dumper aviva Kidney disease, GFR = <60. Kidney failure, GFR = <15. The GFR estimate is not adjusted for extreme body surface area or acute process, nor has it been validated for women or ethnic groups other than and . Glucose [Mass/Vol] 100 mg/dL Normal 70-100 [facility] Comment on above: Result Comment: NORMAL <100 mg/dL PREDIABETES 101-126 mg/dL DIABETES 126 mg/dL or higher Potassium [Moles/Vol] 4.4 mmol/L Normal 3.5-5.1 [facility] Sodium [Moles/Vol] 135 mmol/L Low 137-145 [facility] Urea nitrogen [Mass/Vol] 17 mg/dL Normal 7-20 [facility] C REACTIVE PROTEINon 024 CRP [Mass/Vol] 21.9 mg/L High 0-10 [facility] CBCon 02-03-2024 ABSOLUTE BAS 0.1 10*3/uL Normal 0.0-0.2 [facility] ABSOLUTE EOS 0.2 10*3/uL Normal 0.0-0.7 [facility] ABSOLUTE NEUTROPHIL COUNT 3.6 10*3/uL Normal 1.4-6.5 [facility] Basophils/100 WBC (Bld) 1.2 % Normal 0.0-2.0 [facility] DTYPE AUTO DIFF Normal [facility] Eosinophils/100 WBC (Bld) 3.4 % Normal 0.0-11.0 [facility] Lymphocytes (Bld) [#/Vol] 1.6 10*3/uL Normal 1.2-3.4 [facility] Lymphocytes/100 WBC (Bld) 26.1 % Normal 20.0-55.0 [facility] Monocytes (Bld) [#/Vol] 0.7 10*3/uL Normal 0.0-0.7 [facility] Monocytes/100 WBC (Bld) 11.8 % High 0.0-10.0 [facility] Neutrophils/100 WBC (Bld) 57.5 % Normal 37.0-75.0 [facility] Erythrocyte distribution width (RBC) [Ratio] 15.0 % High 11.5-14.5 [facility] Hematocrit (Bld) [Volume fraction] 31.8 % Low 36.0-48.0 [facility] Hemoglobin (Bld) [Mass/Vol] 10.7 g/dL Low 12.0-16.0 [facility] MCH (RBC) [Entitic mass] 32.3 pg Normal 26.0-35.0 [facility] MCHC (RBC) [Mass/Vol] 33.7 g/dL Normal 27.0-37.0 [facility] MCV (RBC) [Entitic vol] 95.8 fL Normal 80.0-100.0 [facility] Platelet mean volume (Bld) [Entitic vol] 6.4 fL Low 7.4-11.0 [facility] Platelets (Bld) [#/Vol] 472 10*3/uL High 130-400 [facility] RBC (Bld) [#/Vol] 3.31 10*6/uL Low 4.0-5.4 [facility] WBC (Bld) [#/Vol] 6.3 10*3/uL Normal 3.6-11.0 [facility] Laboratory - Chemistry and C hemistry - challengeon 02-03-2024 Bilirubin Ql (U) Negative NEGATIVE [facility] pH (U) 7.0 [pH] 5.0 - 7.0 [facility] Specific gravity (U) [Rel density] 1.015 1.010 - 1.025 [facility] Urobilinogen (U) [Mass/Vol] 0.2 mg/dL [facility] Anion gap [Moles/Vol] 2 mmol/L Low [facility] Calcium [Mass/Vol] 9.1 mg/dL [facility] Chloride [Moles/Vol] 104 mmol/L [facility] CO2 [Moles/Vol] 29 mmol/L [facility] Creatinine [Mass/Vol] 0.90 mg/dL [facility] CRP [Mass/Vol] 21.9 mg/L High 0 - 10 MG/L [facility] GFR/1.73 sq M.predicted among blacks MDRD (S/P/Bld) [Vol rate/Area] 77 mL/min/{1.73_m2} ml/min/1.73sq .m [facility] GFR/1.73 sq M.predicted among non-blacks MDRD (S/P/Bld) [Vol rate/Area] 64 mL/min/{1.73_m2} ml/min/1.73sq .m [facility] Glucose post fast [Mass/Vol] 100 mg/dL [facility] Potassium [Moles/Vol] 4.4 mmol/L [facility] Sodium [Moles/Vol] 135 mmol/L Low [facility] Urea nitrogen [Mass/Vol] 17 mg/dL [facility] Laboratory - Hematology and Cell countson 02-03-2024 Hemoglobin Ql (U) Negative NEGATIVE [facility] Basophils/100 WBC (Bld) 1.2 % 0.0 - 2.0 % [facility] Differential cell count method Nom (Bld) AUTO DIFF % [facility] Eosinophils (Bld) [#/Vol] 0.2 10*3/uL 0.0 - 0.7 10*3/uL [facility] Eosinophils/100 WBC (Bld) 3.4 % 0.0 - 11.0 % [facility] Erythrocyte distribution width (RBC) [Ratio] 15.0 % High 11.5 - 14.5 % [facility] Hematocrit (Bld) [Volume fraction] 31.8 % Low 36.0 - 48.0 % [facility] Hemoglobin (Bld) [Mass/Vol] 10.7 g/dL Low [facility] Lymphocytes (Bld) [#/Vol] 1.6 10*3/uL 1.2 - 3.4 10*3/uL [facility] Lymphocytes/100 WBC (Bld) 26.1 % 20.0 - 55.0 % [facility] MCH (RBC) [Entitic mass] 32.3 pg 26.0 - 35.0 PG [facility] MCHC (RBC) [Mass/Vol] 33.7 g/dL [facility] MCV (RBC) [Entitic vol] 95.8 fL [facility] Monocytes (Bld) [#/Vol] 0.7 10*3/uL 0.0 - 0.7 10*3/uL [facility] Monocytes/100 WBC (Bld) 11.8 % High 0.0 - 10.0 % [facility] Neutrophils (Bld) [#/Vol] 3.6 10*3/uL 1.4 - 6.5 10*3/uL [facility] Neutrophils/100 WBC (Bld) 57.5 % 37.0 - 75.0 % [facility] Platelet mean volume (Bld) [Entitic vol] 6.4 fL Low [facility] Platelets (Bld) [#/Vol] 472 10*3/uL High 130 - 400 10*3/uL [facility] RBC (Bld) [#/Vol] 3.31 10*6/uL Low 4.0 - 5.4 10*6/uL [facility] WBC (Bld) [#/Vol] 6.3 10*3/uL 3.6 - 11.0 10*3/uL [facility] Laboratory - Specimen inform ationon 02-03-2024 Clarity (U) CLEAR CLEAR [facility] Color (U) YELLOW YELLOW [facility] Laboratory - Urinalysison Glucose Test strip (U) [Mass/Vol] Negative NEGATIVE mg/dl [facility] Ketones (U) [Mass/Vol] Negative NEGATIVE mg/dl [facility] Leukocyte esterase Test strip Ql (U) Negative NEGATIVE [facility] Nitrite Ql (U) Negative NEGATIVE [facility] Protein Ql (U) Negative NEGATIVE mg/dl [facility] No Panel Informationon 02-02 [facility] GFR COMMENT Average GFR for 70+ years old = 75. [facility] Interpretation and review of laboratory results Abnormal [facility] ABSOLUTE BASOPHIL COUNT 0.1 10*3/uL 0.0 - 0.2 10*3/uL [facility] Interpretation and review of laboratory results Abnormal [facility] URINE MACROSCOPICon 02-03-20 Bilirubin Ql (U) Negative Normal NEGATIVE [facility] Clarity (U) CLEAR Normal CLEAR [facility] Color (U) YELLOW Normal YELLOW [facility] Glucose Ql (U) Negative Normal NEGATIVE [facility] pH (U) 7.0 [pH] Normal 5.0-7.0 [facility] URINE HEMOGLOBIN Negative Normal NEGATIVE [facility] URINE KETONE Negative Normal NEGATIVE [facility] URINE LEUKOTEST Negative Normal NEGATIVE [facility] URINE NITRATES Negative Normal NEGATIVE [facility] URINE SPEC GRAVITY 1.015 Normal 1.010-1.025 [facility] URINE TOTAL PROTEIN Negative Normal NEGATIVE [facility] Urobilinogen Qn (U) 0.2 {Monique'U}/dL Normal 0.2-1.0 [facility] BMP FASTINGon 02-02-2024 Anion gap [Moles/Vol] 1 mmol/L Low 8-16 [facility] Comment on above: Performed By: #### A CBC #### [place] [address] Calcium [Mass/Vol] 8.9 mg/dL Normal 8.4-10.2 [facility] Comment on above: Performed By: #### A CBC #### Testing performed at [place] [id number] Chloride [Moles/Vol] 103 mmol/L Normal 98-107 [facility] Comment on above: Result Comment: Plea se note: Triglyceride levels of 600mg/dL or higher may positively bias chloride results by approximately 2.1 mmol Performed By: #### A CBC #### Testing performed at [address] [address] CO2 [Moles/Vol] 30 mmol/L Normal 22-30 [facility] Comment on above: Performed By: #### A CBC #### Testing performed at [address] [address] Creatinine [Mass/Vol] 0.90 mg/dL Normal 0.7-1.2 [facility] Comment on above: Performed By: #### A CBC #### Testing performed at [address] [address] EST. GFR, 77 ml/min/1.73sq.m [facility] Comment on above: Performed By: #### A CBC #### Testing performed at [address] [place] [address] EST. GFR,Non 64 ml/min/1.73sq.m [facility] Comment on above: Performed By: #### A CBC #### Testing performed at [address] [address] GFR Information Average GFR for 70+ years old = 75. Normal [facility] Comment on above: Result Comment: Beater Dumper aviva Kidney disease, GFR = <60. Kidney failure, GFR = <15. The GFR estimate is not adjusted for extreme body surface area or acute process, nor has it been validated for women or ethnic groups other than and . Performed By: #### A CBC #### Testing performed at [address] [address] Glucose [Mass/Vol] 103 mg/dL High 70-100 [facility] Comment on above: Result Comment: NORMAL <100 mg/dL PREDIABETES 101-126 mg/dL DIABETES 126 mg/dL or higher Performed By: #### A CBC #### Testing performed at [address] [address] Potassium [Moles/Vol] 4.2 mmol/L Normal 3.5-5.1 [facility] Comment on above: Performed By: #### A CBC #### Testing performed at [address] [address] Sodium [Moles/Vol] 134 mmol/L Low 137-145 [facility] Comment on above: Performed By: #### A CBC #### Testing performed at [address] [address] Urea nitrogen [Mass/Vol] 18 mg/dL Normal 7-20 [facility] Comment on above: Performed By: #### A CBC #### Testing performed at [address] [place] [address] C REACTIVE PROTEINon 024 CRP [Mass/Vol] 26.3 mg/L High 0-10 [facility] Comment on above: Performed By: #### A CBC #### Testing performed at [address] [address] CBCon 02-02-2024 ABSOLUTE BAS 0.1 10*3/uL Normal 0.0-0.2 [facility] Comment on above: Performed By: #### A CBC #### Testing performed at [address] [address] ABSOLUTE EOS 0.2 10*3/uL Normal 0.0-0.7 [facility] Comment on above: Performed By: #### A CBC #### Testing performed at [address] [address] ABSOLUTE NEUTROPHIL COUNT 3.4 10*3/uL Normal 1.4-6.5 [facility] Comment on above: Performed By: #### A CBC #### Testing performed at [address] [address] Basophils/100 WBC (Bld) 0.9 % Normal 0.0-2.0 [facility] Comment on above: Performed By: #### A CBC #### Testing performed at [address] [place] [address] DTYPE AUTO DIFF Normal [facility] Comment on above: Performed By: #### A CBC #### Testing performed at [address] [address] Eosinophils/100 WBC (Bld) 3.7 % Normal 0.0-11.0 [facility] Comment on above: Performed By: #### A CBC #### Testing performed at [address] [address] Lymphocytes (Bld) [#/Vol] 1.6 10*3/uL Normal 1.2-3.4 [facility] Comment on above: Performed By: #### A CBC #### Testing performed at [place] [address] [place] [address] Lymphocytes/100 WBC (Bld) 26.5 % Normal 20.0-55.0 [facility] Comment on above: Performed By: #### A CBC #### Testing performed at [address] [address] Monocytes (Bld) [#/Vol] 0.8 10*3/uL High 0.0-0.7 [facility] Comment on above: Performed By: #### A CBC #### Testing performed at [address] [address] Monocytes/100 WBC (Bld) 12.8 % High 0.0-10.0 [facility] Comment on above: Performed By: #### A CBC #### Testing performed at [address] [address] Neutrophils/100 WBC (Bld) 56.1 % Normal 37.0-75.0 [facility] Comment on above: Performed By: #### A CBC #### Testing performed at [address] [address] Erythrocyte distribution width (RBC) [Ratio] 15.2 % High 11.5-14.5 [facility] Comment on above: Performed By: #### A CBC #### Testing performed at [address] [place] [address] Hematocrit (Bld) [Volume fraction] 31.1 % Low 36.0-48.0 [facility] Comment on above: Performed By: #### A CBC #### Testing performed at [address] [place] [address] Hemoglobin (Bld) [Mass/Vol] 10.5 g/dL Low 12.0-16.0 [facility] Comment on above: Performed By: #### A CBC #### Testing performed at [address] [address] MCH (RBC) [Entitic mass] 32.4 pg Normal 26.0-35.0 [facility] Comment on above: Performed By: #### A CBC #### Testing performed at [address] [address] MCHC (RBC) [Mass/Vol] 33.8 g/dL Normal 27.0-37.0 [facility] Comment on above: Performed By: #### A CBC #### Testing performed at [address] [address] MCV (RBC) [Entitic vol] 95.9 fL Normal 80.0-100.0 [facility] Comment on above: Performed By: #### A CBC #### Testing performed at [address] [address] Platelet mean volume (Bld) [Entitic vol] 6.5 fL Low 7.4-11.0 [facility] Comment on above: Performed By: #### A CBC #### Testing performed at [address] [address] Platelets (Bld) [#/Vol] 429 10*3/uL High 130-400 [facility] Comment on above: Performed By: #### A CBC #### Testing performed at [address] [address] RBC (Bld) [#/Vol] 3.24 10*6/uL Low 4.0-5.4 [facility] Comment on above: Performed By: #### A CBC #### Testing performed at [address] [address] WBC (Bld) [#/Vol] 6.0 10*3/uL Normal 3.6-11.0 [facility] Comment on above: Performed By: #### A CBC #### Testing performed at [address] [place] [place] [address] Laboratory - Chemistry and C hemistry - challengeon 02-02-2024 Anion gap [Moles/Vol] 1 mmol/L Low [facility] Calcium [Mass/Vol] 8.9 mg/dL [facility] Chloride [Moles/Vol] 103 mmol/L [facility] CO2 [Moles/Vol] 30 mmol/L [facility] Creatinine [Mass/Vol] 0.90 mg/dL [facility] CRP [Mass/Vol] 26.3 mg/L High 0 - 10 MG/L [facility] GFR/1.73 sq M.predicted among blacks MDRD (S/P/Bld) [Vol rate/Area] 77 mL/min/{1.73_m2} ml/min/1.73sq .m [facility] GFR/1.73 sq M.predicted among non-blacks MDRD (S/P/Bld) [Vol rate/Area] 64 mL/min/{1.73_m2} ml/min/1.73sq .m [facility] Glucose post fast [Mass/Vol] 103 mg/dL High [facility] Potassium [Moles/Vol] 4.2 mmol/L [facility] Sodium [Moles/Vol] 134 mmol/L Low [facility] Urea nitrogen [Mass/Vol] 18 mg/dL [facility] Laboratory - Hematology and Cell countson 02-02-2024 Basophils/100 WBC (Bld) 0.9 % 0.0 - 2.0 % [facility] Differential cell count method Nom (Bld) AUTO DIFF % [facility] Eosinophils (Bld) [#/Vol] 0.2 10*3/uL 0.0 - 0.7 10*3/uL [facility] Eosinophils/100 WBC (Bld) 3.7 % 0.0 - 11.0 % [facility] Erythrocyte distribution width (RBC) [Ratio] 15.2 % High 11.5 - 14.5 % [facility] Hematocrit (Bld) [Volume fraction] 31.1 % Low 36.0 - 48.0 % [facility] Hemoglobin (Bld) [Mass/Vol] 10.5 g/dL Low [facility] Lymphocytes (Bld) [#/Vol] 1.6 10*3/uL 1.2 - 3.4 10*3/uL [facility] Lymphocytes/100 WBC (Bld) 26.5 % 20.0 - 55.0 % [facility] MCH (RBC) [Entitic mass] 32.4 pg 26.0 - 35.0 PG [facility] MCHC (RBC) [Mass/Vol] 33.8 g/dL [facility] MCV (RBC) [Entitic vol] 95.9 fL [facility] Monocytes (Bld) [#/Vol] 0.8 10*3/uL High 0.0 - 0.7 10*3/uL [facility] Monocytes/100 WBC (Bld) 12.8 % High 0.0 - 10.0 % [facility] Neutrophils (Bld) [#/Vol] 3.4 10*3/uL 1.4 - 6.5 10*3/uL [facility] Neutrophils/100 WBC (Bld) 56.1 % 37.0 - 75.0 % [facility] Platelet mean volume (Bld) [Entitic vol] 6.5 fL Low [facility] Platelets (Bld) [#/Vol] 429 10*3/uL High 130 - 400 10*3/uL [facility] RBC (Bld) [#/Vol] 3.24 10*6/uL Low 4.0 - 5.4 10*6/uL [facility] WBC (Bld) [#/Vol] 6.0 10*3/uL 3.6 - 11.0 10*3/uL [facility] No Panel Informationon 02-01 GFR COMMENT Average GFR for 70+ years old = 75. [facility] Interpretation and review of laboratory results Abnormal [facility] ABSOLUTE BASOPHIL COUNT 0.1 10*3/uL 0.0 - 0.2 10*3/uL [facility] Interpretation and review of laboratory results Abnormal [facility] BMP FASTINGon 02-01-2024 Anion gap [Moles/Vol] 2 mmol/L Low 03-03 [facility] Calcium [Mass/Vol] 8.9 mg/dL Normal 8.4-10.2 [facility] Chloride [Moles/Vol] 103 mmol/L Normal 98-107 [facility] Comment on above: Result Comment: Shonda matthews note: Triglyceride levels of 600mg/dL or higher may positively bias chloride results by approximately 2.1 mmol CO2 [Moles/Vol] 28 mmol/L Normal 22-30 [facility] Creatinine [Mass/Vol] 0.90 mg/dL Normal 0.7-1.2 [facility] EST. GFR, 77 ml/min/1.73sq.m Normal [facility] EST. GFR,Non 64 ml/min/1.73sq.m Normal [facility] GFR Information Average GFR for 70+ years old = 75. Normal [facility] Comment on above: Result Comment: Beater Dumper aviva Kidney disease, GFR = <60. Kidney failure, GFR = <15. The GFR estimate is not adjusted for extreme body surface area or acute process, nor has it been validated for women or ethnic groups other than and . Glucose [Mass/Vol] 98 mg/dL Normal 70-100 [facility] Comment on above: Result Comment: NORMAL <100 mg/dL PREDIABETES 101-126 mg/dL DIABETES 126 mg/dL or higher Potassium [Moles/Vol] 4.4 mmol/L Normal 3.5-5.1 [facility] Sodium [Moles/Vol] 133 mmol/L Low 137-145 [facility] Urea nitrogen [Mass/Vol] 14 mg/dL Normal 7-20 [facility] C REACTIVE PROTEINon 024 CRP [Mass/Vol] 26.1 mg/L High 0-10 [facility] CBCon 02-01-2024 ABSOLUTE BAS 0.1 10*3/uL Normal 0.0-0.2 [facility] ABSOLUTE EOS 0.1 10*3/uL Normal 0.0-0.7 [facility] ABSOLUTE NEUTROPHIL COUNT 3.0 10*3/uL Normal 1.4-6.5 [facility] Basophils/100 WBC (Bld) 1.1 % Normal 0.0-2.0 [facility] DTYPE AUTO DIFF Normal [facility] Eosinophils/100 WBC (Bld) 2.6 % Normal 0.0-11.0 [facility] Lymphocytes (Bld) [#/Vol] 1.7 10*3/uL Normal 1.2-3.4 [facility] Lymphocytes/100 WBC (Bld) 28.9 % Normal 20.0-55.0 [facility] Monocytes (Bld) [#/Vol] 0.9 10*3/uL High 0.0-0.7 [facility] Monocytes/100 WBC (Bld) 15.1 % High 0.0-10.0 [facility] Neutrophils/100 WBC (Bld) 52.3 % Normal 37.0-75.0 [facility] Erythrocyte distribution width (RBC) [Ratio] 14.8 % High 11.5-14.5 [facility] Hematocrit (Bld) [Volume fraction] 31.4 % Low 36.0-48.0 [facility] Hemoglobin (Bld) [Mass/Vol] 10.6 g/dL Low 12.0-16.0 [facility] MCH (RBC) [Entitic mass] 32.4 pg Normal 26.0-35.0 [facility] MCHC (RBC) [Mass/Vol] 33.9 g/dL Normal 27.0-37.0 [facility] MCV (RBC) [Entitic vol] 95.5 fL Normal 80.0-100.0 [facility] Platelet mean volume (Bld) [Entitic vol] 6.4 fL Low 7.4-11.0 [facility] Platelets (Bld) [#/Vol] 479 10*3/uL High 130-400 [facility] RBC (Bld) [#/Vol] 3.29 10*6/uL Low 4.0-5.4 [facility] WBC (Bld) [#/Vol] 5.8 10*3/uL Normal 3.6-11.0 [facility] Laboratory - Chemistry and C hemistry - challengeon 02-01-2024 Anion gap [Moles/Vol] 2 mmol/L Low [facility] Calcium [Mass/Vol] 8.9 mg/dL [facility] Chloride [Moles/Vol] 103 mmol/L [facility] CO2 [Moles/Vol] 28 mmol/L [facility] Creatinine [Mass/Vol] 0.90 mg/dL [facility] CRP [Mass/Vol] 26.1 mg/L High 0 - 10 MG/L [facility] GFR/1.73 sq M.predicted among blacks MDRD (S/P/Bld) [Vol rate/Area] 77 mL/min/{1.73_m2} ml/min/1.73sq .m [facility] GFR/1.73 sq M.predicted among non-blacks MDRD (S/P/Bld) [Vol rate/Area] 64 mL/min/{1.73_m2} ml/min/1.73sq .m [facility] Glucose post fast [Mass/Vol] 98 mg/dL [facility] Potassium [Moles/Vol] 4.4 mmol/L [facility] Sodium [Moles/Vol] 133 mmol/L Low [facility] Urea nitrogen [Mass/Vol] 14 mg/dL [facility] Laboratory - Hematology and Cell countson 02-01-2024 Basophils/100 WBC (Bld) 1.1 % 0.0 - 2.0 % [facility] Differential cell count method Nom (Bld) AUTO DIFF % [facility] Eosinophils (Bld) [#/Vol] 0.1 10*3/uL 0.0 - 0.7 10*3/uL [facility] Eosinophils/100 WBC (Bld) 2.6 % 0.0 - 11.0 % [facility] Erythrocyte distribution width (RBC) [Ratio] 14.8 % High 11.5 - 14.5 % [facility] Hematocrit (Bld) [Volume fraction] 31.4 % Low 36.0 - 48.0 % [facility] Hemoglobin (Bld) [Mass/Vol] 10.6 g/dL Low [facility] Lymphocytes (Bld) [#/Vol] 1.7 10*3/uL 1.2 - 3.4 10*3/uL [facility] Lymphocytes/100 WBC (Bld) 28.9 % 20.0 - 55.0 % [facility] MCH (RBC) [Entitic mass] 32.4 pg 26.0 - 35.0 PG [facility] MCHC (RBC) [Mass/Vol] 33.9 g/dL [facility] MCV (RBC) [Entitic vol] 95.5 fL [facility] Monocytes (Bld) [#/Vol] 0.9 10*3/uL High 0.0 - 0.7 10*3/uL [facility] Monocytes/100 WBC (Bld) 15.1 % High 0.0 - 10.0 % [facility] Neutrophils (Bld) [#/Vol] 3.0 10*3/uL 1.4 - 6.5 10*3/uL [facility] Neutrophils/100 WBC (Bld) 52.3 % 37.0 - 75.0 % [facility] Platelet mean volume (Bld) [Entitic vol] 6.4 fL Low [facility] Platelets (Bld) [#/Vol] 479 10*3/uL High 130 - 400 10*3/uL [facility] RBC (Bld) [#/Vol] 3.29 10*6/uL Low 4.0 - 5.4 10*6/uL [facility] WBC (Bld) [#/Vol] 5.8 10*3/uL 3.6 - 11.0 10*3/uL [facility] No Panel Informationon 01-31 GFR COMMENT Average GFR for 70+ years old = 75. [facility] Interpretation and review of laboratory results Abnormal [facility] ABSOLUTE BASOPHIL COUNT 0.1 10*3/uL 0.0 - 0.2 10*3/uL [facility] Interpretation and review of laboratory results Abnormal [facility] BMP FASTINGon 01-31-2024 Anion gap [Moles/Vol] Negative Normal 8-16 [facility] Calcium [Mass/Vol] 8.7 mg/dL Normal 8.4-10.2 [facility] Chloride [Moles/Vol] 102 mmol/L Normal 98-107 [facility] Comment on above: Result Comment: Shonda matthews note: Triglyceride levels of 600mg/dL or higher may positively bias chloride results by approximately 2.1 mmol CO2 [Moles/Vol] 33 mmol/L High 22-30 [facility] Creatinine [Mass/Vol] 1.10 mg/dL Normal 0.7-1.2 [facility] EST. GFR, 61 ml/min/1.73sq.m Normal [facility] EST. GFR,Non 51 ml/min/1.73sq.m Normal [facility] GFR Information Average GFR for 70+ years old = 75. Normal [facility] Comment on above: Result Comment: Beater Dumper aviva Kidney disease, GFR = <60. Kidney failure, GFR = <15. The GFR estimate is not adjusted for extreme body surface area or acute process, nor has it been validated for women or ethnic groups other than and . Glucose [Mass/Vol] 94 mg/dL Normal 70-100 [facility] Comment on above: Result Comment: NORMAL <100 mg/dL PREDIABETES 101-126 mg/dL DIABETES 126 mg/dL or higher Potassium [Moles/Vol] 4.5 mmol/L Normal 3.5-5.1 [facility] Sodium [Moles/Vol] 134 mmol/L Low 137-145 [facility] Urea nitrogen [Mass/Vol] 12 mg/dL Normal 7-20 [facility] C REACTIVE PROTEINon 024 CRP [Mass/Vol] 27.5 mg/L High 0-10 [facility] CBCon 01-31-2024 ABSOLUTE BAS 0.1 10*3/uL Normal 0.0-0.2 [facility] ABSOLUTE EOS 0.2 10*3/uL Normal 0.0-0.7 [facility] ABSOLUTE NEUTROPHIL COUNT 2.5 10*3/uL Normal 1.4-6.5 [facility] Basophils/100 WBC (Bld) 1.4 % Normal 0.0-2.0 [facility] DTYPE AUTO DIFF Normal [facility] Eosinophils/100 WBC (Bld) 3.6 % Normal 0.0-11.0 [facility] Lymphocytes (Bld) [#/Vol] 1.5 10*3/uL Normal 1.2-3.4 [facility] Lymphocytes/100 WBC (Bld) 28.8 % Normal 20.0-55.0 [facility] Monocytes (Bld) [#/Vol] 0.8 10*3/uL High 0.0-0.7 [facility] Monocytes/100 WBC (Bld) 16.5 % High 0.0-10.0 [facility] Neutrophils/100 WBC (Bld) 49.7 % Normal 37.0-75.0 [facility] Erythrocyte distribution width (RBC) [Ratio] 14.9 % High 11.5-14.5 [facility] Hematocrit (Bld) [Volume fraction] 29.3 % Low 36.0-48.0 [facility] Hemoglobin (Bld) [Mass/Vol] 10.0 g/dL Low 12.0-16.0 [facility] MCH (RBC) [Entitic mass] 32.5 pg Normal 26.0-35.0 [facility] MCHC (RBC) [Mass/Vol] 34.1 g/dL Normal 27.0-37.0 [facility] MCV (RBC) [Entitic vol] 95.2 fL Normal 80.0-100.0 [facility] Platelet mean volume (Bld) [Entitic vol] 6.3 fL Low 7.4-11.0 [facility] Platelets (Bld) [#/Vol] 439 10*3/uL High 130-400 [facility] RBC (Bld) [#/Vol] 3.08 10*6/uL Low 4.0-5.4 [facility] WBC (Bld) [#/Vol] 5.1 10*3/uL Normal 3.6-11.0 [facility] LIPASE,SERUMon 01-31-2024 LIPASE,SERUM 43 U/L Normal 23-300 [facility] LIVER PANELon 01-31-2024 Albumin [Mass/Vol] 3.0 g/dL Low 3.5-5.0 [facility] ALP [Catalytic activity/Vol] 107 U/L Normal 38-126 [facility] ALT [Catalytic activity/Vol] 13 U/L Normal <35 [facility] AST [Catalytic activity/Vol] 26 U/L Normal 14-36 [facility] Bilirubin [Mass/Vol] 0.2 mg/dL Normal 0.2-1.3 [facility] Bilirubin.indirect [Mass/Vol] 0.2 mg/dL Normal 0-0.4 [facility] Protein [Mass/Vol] 6.1 g/dL Low 6.3-8.2 [facility] Laboratory - Chemistry and C hemistry - challengeon 01-31-2024 Prealbumin [Mass/Vol] 11.9 mg/dL Low [facility] Albumin [Mass/Vol] 3.0 g/dL Low [facility] ALP [Catalytic activity/Vol] 107 U/L [facility] ALT [Catalytic activity/Vol] 13 U/L NINF [facility] Anion gap [Moles/Vol] Negative [facility] AST [Catalytic activity/Vol] 26 U/L [facility] Bilirubin [Mass/Vol] 0.2 mg/dL [facility] Bilirubin.direct [Mass/Vol] 0.2 mg/dL [facility] Calcium [Mass/Vol] 8.7 mg/dL [facility] Chloride [Moles/Vol] 102 mmol/L [facility] CO2 [Moles/Vol] 33 mmol/L High [facility] Creatinine [Mass/Vol] 1.10 mg/dL [facility] CRP [Mass/Vol] 27.5 mg/L High 0 - 10 MG/L [facility] GFR/1.73 sq M.predicted among blacks MDRD (S/P/Bld) [Vol rate/Area] 61 mL/min/{1.73_m2} ml/min/1.73sq .m [facility] GFR/1.73 sq M.predicted among non-blacks MDRD (S/P/Bld) [Vol rate/Area] 51 mL/min/{1.73_m2} ml/min/1.73sq .m [facility] Glucose post fast [Mass/Vol] 94 mg/dL [facility] Lipase [Catalytic activity/Vol] 43 U/L 23 - 300 U/L [facility] Potassium [Moles/Vol] 4.5 mmol/L [facility] Protein [Mass/Vol] 6.1 g/dL Low [facility] Sodium [Moles/Vol] 134 mmol/L Low [facility] Urea nitrogen [Mass/Vol] 12 mg/dL [facility] Laboratory - Hematology and Cell countson 01-31-2024 Basophils/100 WBC (Bld) 1.4 % 0.0 - 2.0 % [facility] Differential cell count method Nom (Bld) AUTO DIFF % [facility] Eosinophils (Bld) [#/Vol] 0.2 10*3/uL 0.0 - 0.7 10*3/uL [facility] Eosinophils/100 WBC (Bld) 3.6 % 0.0 - 11.0 % [facility] Erythrocyte distribution width (RBC) [Ratio] 14.9 % High 11.5 - 14.5 % [facility] Hematocrit (Bld) [Volume fraction] 29.3 % Low 36.0 - 48.0 % [facility] Hemoglobin (Bld) [Mass/Vol] 10.0 g/dL Low [facility] Lymphocytes (Bld) [#/Vol] 1.5 10*3/uL 1.2 - 3.4 10*3/uL [facility] Lymphocytes/100 WBC (Bld) 28.8 % 20.0 - 55.0 % [facility] MCH (RBC) [Entitic mass] 32.5 pg 26.0 - 35.0 PG [facility] MCHC (RBC) [Mass/Vol] 34.1 g/dL [facility] MCV (RBC) [Entitic vol] 95.2 fL [facility] Monocytes (Bld) [#/Vol] 0.8 10*3/uL High 0.0 - 0.7 10*3/uL [facility] Monocytes/100 WBC (Bld) 16.5 % High 0.0 - 10.0 % [facility] Neutrophils (Bld) [#/Vol] 2.5 10*3/uL 1.4 - 6.5 10*3/uL [facility] Neutrophils/100 WBC (Bld) 49.7 % 37.0 - 75.0 % [facility] Platelet mean volume (Bld) [Entitic vol] 6.3 fL Low [facility] Platelets (Bld) [#/Vol] 439 10*3/uL High 130 - 400 10*3/uL [facility] RBC (Bld) [#/Vol] 3.08 10*6/uL Low 4.0 - 5.4 10*6/uL [facility] WBC (Bld) [#/Vol] 5.1 10*3/uL 3.6 - 11.0 10*3/uL [facility] No Panel Informationon 01-30 Interpretation and review of laboratory results Abnormal [facility] GFR COMMENT Average GFR for 70+ years old = 75. [facility] Interpretation and review of laboratory results Abnormal [facility] ABSOLUTE BASOPHIL COUNT 0.1 10*3/uL 0.0 - 0.2 10*3/uL [facility] Interpretation and review of laboratory results Abnormal [facility] PREALBUMINon 01-31-2024 Prealbumin [Mass/Vol] 11.9 mg/dL Low 17.6-36.0 [facility] BMP FASTINGon 01-30-2024 Anion gap [Moles/Vol] 3 mmol/L Low 8-16 [facility] Calcium [Mass/Vol] 8.6 mg/dL Normal 8.4-10.2 [facility] Chloride [Moles/Vol] 101 mmol/L Normal 98-107 [facility] Comment on above: Result Comment: Shonda matthews note: Triglyceride levels of 600mg/dL or higher may positively bias chloride results by approximately 2.1 mmol CO2 [Moles/Vol] 31 mmol/L High 22-30 [facility] Creatinine [Mass/Vol] 1.00 mg/dL Normal 0.7-1.2 [facility] EST. GFR, 68 ml/min/1.73sq.m [facility] EST. GFR,Non 57 ml/min/1.73sq.m [facility] GFR Information Average GFR for 70+ years old = 75. Normal [facility] Comment on above: Result Comment: Beater Dumper aviva Kidney disease, GFR = <60. Kidney failure, GFR = <15. The GFR estimate is not adjusted for extreme body surface area or acute process, nor has it been validated for women or ethnic groups other than and . Glucose [Mass/Vol] 93 mg/dL Normal 70-100 [facility] Comment on above: Result Comment: NORMAL <100 mg/dL PREDIABETES 101-126 mg/dL DIABETES 126 mg/dL or higher Potassium [Moles/Vol] 4.4 mmol/L Normal 3.5-5.1 [facility] Sodium [Moles/Vol] 135 mmol/L Low 137-145 [facility] Urea nitrogen [Mass/Vol] 10 mg/dL Normal 7-20 [facility] C REACTIVE PROTEINon 024 CRP [Mass/Vol] 25.8 mg/L High 0-10 [facility] CBCon 01-30-2024 ABSOLUTE BAS 0.1 10*3/uL Normal 0.0-0.2 [facility] ABSOLUTE EOS 0.2 10*3/uL Normal 0.0-0.7 [facility] ABSOLUTE NEUTROPHIL COUNT 2.9 10*3/uL Normal 1.4-6.5 [facility] Basophils/100 WBC (Bld) 1.2 % Normal 0.0-2.0 [facility] DTYPE AUTO DIFF Normal [facility] Eosinophils/100 WBC (Bld) 3.0 % Normal 0.0-11.0 [facility] Lymphocytes (Bld) [#/Vol] 1.4 10*3/uL Normal 1.2-3.4 [facility] Lymphocytes/100 WBC (Bld) 26.1 % Normal 20.0-55.0 [facility] Monocytes (Bld) [#/Vol] 0.8 10*3/uL High 0.0-0.7 [facility] Monocytes/100 WBC (Bld) 15.2 % High 0.0-10.0 [facility] Neutrophils/100 WBC (Bld) 54.5 % Normal 37.0-75.0 [facility] Erythrocyte distribution width (RBC) [Ratio] 15.0 % High 11.5-14.5 [facility] Hematocrit (Bld) [Volume fraction] 29.9 % Low 36.0-48.0 [facility] Hemoglobin (Bld) [Mass/Vol] 10.3 g/dL Low 12.0-16.0 [facility] MCH (RBC) [Entitic mass] 32.9 pg Normal 26.0-35.0 [facility] MCHC (RBC) [Mass/Vol] 34.4 g/dL Normal 27.0-37.0 [facility] MCV (RBC) [Entitic vol] 95.6 fL Normal 80.0-100.0 [facility] Platelet mean volume (Bld) [Entitic vol] 6.3 fL Low 7.4-11.0 [facility] Platelets (Bld) [#/Vol] 466 10*3/uL High 130-400 [facility] RBC (Bld) [#/Vol] 3.12 10*6/uL Low 4.0-5.4 [facility] WBC (Bld) [#/Vol] 5.3 10*3/uL Normal 3.6-11.0 [facility] Laboratory - Chemistry and C hemistry - challengeon 01-30-2024 Anion gap [Moles/Vol] 3 mmol/L Low [facility] Calcium [Mass/Vol] 8.6 mg/dL [facility] Chloride [Moles/Vol] 101 mmol/L [facility] CO2 [Moles/Vol] 31 mmol/L High [facility] Creatinine [Mass/Vol] 1.00 mg/dL [facility] CRP [Mass/Vol] 25.8 mg/L High 0 - 10 MG/L [facility] GFR/1.73 sq M.predicted among blacks MDRD (S/P/Bld) [Vol rate/Area] 68 mL/min/{1.73_m2} ml/min/1.73sq .m [facility] GFR/1.73 sq M.predicted among non-blacks MDRD (S/P/Bld) [Vol rate/Area] 57 mL/min/{1.73_m2} ml/min/1.73sq .m [facility] Glucose post fast [Mass/Vol] 93 mg/dL [facility] Potassium [Moles/Vol] 4.4 mmol/L [facility] Sodium [Moles/Vol] 135 mmol/L Low [facility] Urea nitrogen [Mass/Vol] 10 mg/dL [facility] Laboratory - Hematology and Cell countson 01-30-2024 Basophils/100 WBC (Bld) 1.2 % 0.0 - 2.0 % [facility] Differential cell count method Nom (Bld) AUTO DIFF % [facility] Eosinophils (Bld) [#/Vol] 0.2 10*3/uL 0.0 - 0.7 10*3/uL [facility] Eosinophils/100 WBC (Bld) 3.0 % 0.0 - 11.0 % [facility] Erythrocyte distribution width (RBC) [Ratio] 15.0 % High 11.5 - 14.5 % [facility] Hematocrit (Bld) [Volume fraction] 29.9 % Low 36.0 - 48.0 % [facility] Hemoglobin (Bld) [Mass/Vol] 10.3 g/dL Low [facility] Lymphocytes (Bld) [#/Vol] 1.4 10*3/uL 1.2 - 3.4 10*3/uL [facility] Lymphocytes/100 WBC (Bld) 26.1 % 20.0 - 55.0 % [facility] MCH (RBC) [Entitic mass] 32.9 pg 26.0 - 35.0 PG [facility] MCHC (RBC) [Mass/Vol] 34.4 g/dL [facility] MCV (RBC) [Entitic vol] 95.6 fL [facility] Monocytes (Bld) [#/Vol] 0.8 10*3/uL High 0.0 - 0.7 10*3/uL [facility] Monocytes/100 WBC (Bld) 15.2 % High 0.0 - 10.0 % [facility] Neutrophils (Bld) [#/Vol] 2.9 10*3/uL 1.4 - 6.5 10*3/uL [facility] Neutrophils/100 WBC (Bld) 54.5 % 37.0 - 75.0 % [facility] Platelet mean volume (Bld) [Entitic vol] 6.3 fL Low [facility] Platelets (Bld) [#/Vol] 466 10*3/uL High 130 - 400 10*3/uL [facility] RBC (Bld) [#/Vol] 3.12 10*6/uL Low 4.0 - 5.4 10*6/uL [facility] WBC (Bld) [#/Vol] 5.3 10*3/uL 3.6 - 11.0 10*3/uL [facility] No Panel Informationon 01-29 GFR COMMENT Average GFR for 70+ years old = 75. [facility] Interpretation and review of laboratory results Abnormal [facility] ABSOLUTE BASOPHIL COUNT 0.1 10*3/uL 0.0 - 0.2 10*3/uL [facility] Interpretation and review of laboratory results Abnormal [facility] BMP FASTINGon 01-29-2024 Anion gap [Moles/Vol] 3 mmol/L Low 8-16 [facility] Calcium [Mass/Vol] 8.3 mg/dL Low 8.4-10.2 [facility] Chloride [Moles/Vol] 101 mmol/L Normal 98-107 [facility] Comment on above: Result Comment: Shonda matthews note: Triglyceride levels of 600mg/dL or higher may positively bias chloride results by approximately 2.1 mmol CO2 [Moles/Vol] 30 mmol/L Normal 22-30 [facility] Creatinine [Mass/Vol] 0.80 mg/dL Normal 0.7-1.2 [facility] EST. GFR, 89 ml/min/1.73sq.m [facility] EST. GFR,Non 73 ml/min/1.73sq.m [facility] GFR Information Average GFR for 70+ years old = 75. Normal [facility] Comment on above: Result Comment: Beater Dumper aviva Kidney disease, GFR = <60. Kidney failure, GFR = <15. The GFR estimate is not adjusted for extreme body surface area or acute process, nor has it been validated for women or ethnic groups other than and . Glucose [Mass/Vol] 94 mg/dL Normal 70-100 [facility] Comment on above: Result Comment: NORMAL <100 mg/dL PREDIABETES 101-126 mg/dL DIABETES 126 mg/dL or higher Potassium [Moles/Vol] 4.2 mmol/L Normal 3.5-5.1 [facility] Sodium [Moles/Vol] 134 mmol/L Low 137-145 [facility] Urea nitrogen [Mass/Vol] 9 mg/dL Normal 7-20 [facility] C REACTIVE PROTEINon 024 CRP [Mass/Vol] 28.9 mg/L High 0-10 [facility] CBCon 01-29-2024 ABSOLUTE BAS 0.1 10*3/uL Normal 0.0-0.2 [facility] ABSOLUTE EOS 0.2 10*3/uL Normal 0.0-0.7 [facility] ABSOLUTE NEUTROPHIL COUNT 2.6 10*3/uL Normal 1.4-6.5 [facility] Basophils/100 WBC (Bld) 1.1 % Normal 0.0-2.0 [facility] DTYPE AUTO DIFF Normal [facility] Eosinophils/100 WBC (Bld) 4.1 % Normal 0.0-11.0 [facility] Lymphocytes (Bld) [#/Vol] 1.3 10*3/uL Normal 1.2-3.4 [facility] Lymphocytes/100 WBC (Bld) 26.6 % Normal 20.0-55.0 [facility] Monocytes (Bld) [#/Vol] 0.7 10*3/uL Normal 0.0-0.7 [facility] Monocytes/100 WBC (Bld) 13.9 % High 0.0-10.0 [facility] Neutrophils/100 WBC (Bld) 54.3 % Normal 37.0-75.0 [facility] Erythrocyte distribution width (RBC) [Ratio] 14.7 % High 11.5-14.5 [facility] Hematocrit (Bld) [Volume fraction] 29.3 % Low 36.0-48.0 [facility] Hemoglobin (Bld) [Mass/Vol] 10.0 g/dL Low 12.0-16.0 [facility] MCH (RBC) [Entitic mass] 32.7 pg Normal 26.0-35.0 [facility] MCHC (RBC) [Mass/Vol] 34.3 g/dL Normal 27.0-37.0 [facility] MCV (RBC) [Entitic vol] 95.2 fL Normal 80.0-100.0 [facility] Platelet mean volume (Bld) [Entitic vol] 6.4 fL Low 7.4-11.0 [facility] Platelets (Bld) [#/Vol] 438 10*3/uL High 130-400 [facility] RBC (Bld) [#/Vol] 3.07 10*6/uL Low 4.0-5.4 [facility] WBC (Bld) [#/Vol] 4.7 10*3/uL Normal 3.6-11.0 [facility] Laboratory - Chemistry and C hemistry - challengeon 01-29-2024 Anion gap [Moles/Vol] 3 mmol/L Low [facility] Calcium [Mass/Vol] 8.3 mg/dL Low [facility] Chloride [Moles/Vol] 101 mmol/L [facility] CO2 [Moles/Vol] 30 mmol/L [facility] Creatinine [Mass/Vol] 0.80 mg/dL [facility] CRP [Mass/Vol] 28.9 mg/L High 0 - 10 MG/L [facility] GFR/1.73 sq M.predicted among blacks MDRD (S/P/Bld) [Vol rate/Area] 89 mL/min/{1.73_m2} ml/min/1.73sq .m [facility] GFR/1.73 sq M.predicted among non-blacks MDRD (S/P/Bld) [Vol rate/Area] 73 mL/min/{1.73_m2} ml/min/1.73sq .m [facility] Glucose post fast [Mass/Vol] 94 mg/dL [facility] Potassium [Moles/Vol] 4.2 mmol/L [facility] Sodium [Moles/Vol] 134 mmol/L Low [facility] Urea nitrogen [Mass/Vol] 9 mg/dL [facility] Laboratory - Hematology and Cell countson 01-29-2024 Basophils/100 WBC (Bld) 1.1 % 0.0 - 2.0 % [facility] Differential cell count method Nom (Bld) AUTO DIFF % [facility] Eosinophils (Bld) [#/Vol] 0.2 10*3/uL 0.0 - 0.7 10*3/uL [facility] Eosinophils/100 WBC (Bld) 4.1 % 0.0 - 11.0 % [facility] Erythrocyte distribution width (RBC) [Ratio] 14.7 % High 11.5 - 14.5 % [facility] Hematocrit (Bld) [Volume fraction] 29.3 % Low 36.0 - 48.0 % [facility] Hemoglobin (Bld) [Mass/Vol] 10.0 g/dL Low [facility] Lymphocytes (Bld) [#/Vol] 1.3 10*3/uL 1.2 - 3.4 10*3/uL [facility] Lymphocytes/100 WBC (Bld) 26.6 % 20.0 - 55.0 % [facility] MCH (RBC) [Entitic mass] 32.7 pg 26.0 - 35.0 PG [facility] MCHC (RBC) [Mass/Vol] 34.3 g/dL [facility] MCV (RBC) [Entitic vol] 95.2 fL [facility] Monocytes (Bld) [#/Vol] 0.7 10*3/uL 0.0 - 0.7 10*3/uL [facility] Monocytes/100 WBC (Bld) 13.9 % High 0.0 - 10.0 % [facility] Neutrophils (Bld) [#/Vol] 2.6 10*3/uL 1.4 - 6.5 10*3/uL [facility] Neutrophils/100 WBC (Bld) 54.3 % 37.0 - 75.0 % [facility] Platelet mean volume (Bld) [Entitic vol] 6.4 fL Low [facility] Platelets (Bld) [#/Vol] 438 10*3/uL High 130 - 400 10*3/uL [facility] RBC (Bld) [#/Vol] 3.07 10*6/uL Low 4.0 - 5.4 10*6/uL [facility] WBC (Bld) [#/Vol] 4.7 10*3/uL 3.6 - 11.0 10*3/uL [facility] No Panel Informationon 01-28 GFR COMMENT Average GFR for 70+ years old = 75. [facility] Interpretation and review of laboratory results Abnormal [facility] ABSOLUTE BASOPHIL COUNT 0.1 10*3/uL 0.0 - 0.2 10*3/uL [facility] Interpretation and review of laboratory results Abnormal [facility] BMP FASTINGon 01-28-2024 Anion gap [Moles/Vol] 3 mmol/L Low 8-16 [facility] Calcium [Mass/Vol] 8.8 mg/dL Normal 8.4-10.2 [facility] Chloride [Moles/Vol] 100 mmol/L Normal 98-107 [facility] Comment on above: Result Comment: Shonda matthews note: Triglyceride levels of 600mg/dL or higher may positively bias chloride results by approximately 2.1 mmol CO2 [Moles/Vol] 33 mmol/L High 22-30 [facility] Creatinine [Mass/Vol] 0.80 mg/dL Normal 0.7-1.2 [facility] EST. GFR, 89 ml/min/1.73sq.m Normal [facility] EST. GFR,Non 73 ml/min/1.73sq.m Normal [facility] GFR Information Average GFR for 70+ years old = 75. Normal [facility] Comment on above: Result Comment: Beater Dumper aviva Kidney disease, GFR = <60. Kidney failure, GFR = <15. The GFR estimate is not adjusted for extreme body surface area or acute process, nor has it been validated for women or ethnic groups other than and . Glucose [Mass/Vol] 86 mg/dL Normal 70-100 [facility] Comment on above: Result Comment: NORMAL <100 mg/dL PREDIABETES 101-126 mg/dL DIABETES 126 mg/dL or higher Potassium [Moles/Vol] 4.4 mmol/L Normal 3.5-5.1 [facility] Sodium [Moles/Vol] 136 mmol/L Low 137-145 [facility] Urea nitrogen [Mass/Vol] 11 mg/dL Normal 7-20 [facility] C REACTIVE PROTEINon 024 CRP [Mass/Vol] 30.5 mg/L High 0-10 [facility] CBCon 01-28-2024 ABSOLUTE BAS 0.1 10*3/uL Normal 0.0-0.2 [facility] ABSOLUTE EOS 0.2 10*3/uL Normal 0.0-0.7 [facility] ABSOLUTE NEUTROPHIL COUNT 3.0 10*3/uL Normal 1.4-6.5 [facility] Basophils/100 WBC (Bld) 1.1 % Normal 0.0-2.0 [facility] DTYPE AUTO DIFF Normal [facility] Eosinophils/100 WBC (Bld) 3.2 % Normal 0.0-11.0 [facility] Lymphocytes (Bld) [#/Vol] 1.3 10*3/uL Normal 1.2-3.4 [facility] Lymphocytes/100 WBC (Bld) 25.7 % Normal 20.0-55.0 [facility] Monocytes (Bld) [#/Vol] 0.6 10*3/uL Normal 0.0-0.7 [facility] Monocytes/100 WBC (Bld) 12.0 % High 0.0-10.0 [facility] Neutrophils/100 WBC (Bld) 58.0 % Normal 37.0-75.0 [facility] Erythrocyte distribution width (RBC) [Ratio] 14.6 % High 11.5-14.5 [facility] Hematocrit (Bld) [Volume fraction] 31.3 % Low 36.0-48.0 [facility] Hemoglobin (Bld) [Mass/Vol] 10.6 g/dL Low 12.0-16.0 [facility] MCH (RBC) [Entitic mass] 32.3 pg Normal 26.0-35.0 [facility] MCHC (RBC) [Mass/Vol] 34.0 g/dL Normal 27.0-37.0 [facility] MCV (RBC) [Entitic vol] 95.0 fL Normal 80.0-100.0 [facility] Platelet mean volume (Bld) [Entitic vol] 6.5 fL Low 7.4-11.0 [facility] Platelets (Bld) [#/Vol] 470 10*3/uL High 130-400 [facility] RBC (Bld) [#/Vol] 3.30 10*6/uL Low 4.0-5.4 [facility] WBC (Bld) [#/Vol] 5.1 10*3/uL Normal 3.6-11.0 [facility] Laboratory - Chemistry and C hemistry - challengeon 01-28-2024 Anion gap [Moles/Vol] 3 mmol/L Low [facility] Calcium [Mass/Vol] 8.8 mg/dL [facility] Chloride [Moles/Vol] 100 mmol/L [facility] CO2 [Moles/Vol] 33 mmol/L High [facility] Creatinine [Mass/Vol] 0.80 mg/dL [facility] CRP [Mass/Vol] 30.5 mg/L High 0 - 10 MG/L [facility] GFR/1.73 sq M.predicted among blacks MDRD (S/P/Bld) [Vol rate/Area] 89 mL/min/{1.73_m2} ml/min/1.73sq .m [facility] GFR/1.73 sq M.predicted among non-blacks MDRD (S/P/Bld) [Vol rate/Area] 73 mL/min/{1.73_m2} ml/min/1.73sq .m [facility] Glucose post fast [Mass/Vol] 86 mg/dL [facility] Potassium [Moles/Vol] 4.4 mmol/L [facility] Sodium [Moles/Vol] 136 mmol/L Low [facility] Urea nitrogen [Mass/Vol] 11 mg/dL [facility] Laboratory - Hematology and Cell countson 01-28-2024 Basophils/100 WBC (Bld) 1.1 % 0.0 - 2.0 % [facility] Differential cell count method Nom (Bld) AUTO DIFF % [facility] Eosinophils (Bld) [#/Vol] 0.2 10*3/uL 0.0 - 0.7 10*3/uL [facility] Eosinophils/100 WBC (Bld) 3.2 % 0.0 - 11.0 % [facility] Erythrocyte distribution width (RBC) [Ratio] 14.6 % High 11.5 - 14.5 % [facility] Hematocrit (Bld) [Volume fraction] 31.3 % Low 36.0 - 48.0 % [facility] Hemoglobin (Bld) [Mass/Vol] 10.6 g/dL Low [facility] Lymphocytes (Bld) [#/Vol] 1.3 10*3/uL 1.2 - 3.4 10*3/uL [facility] Lymphocytes/100 WBC (Bld) 25.7 % 20.0 - 55.0 % [facility] MCH (RBC) [Entitic mass] 32.3 pg 26.0 - 35.0 PG [facility] MCHC (RBC) [Mass/Vol] 34.0 g/dL [facility] MCV (RBC) [Entitic vol] 95.0 fL [facility] Monocytes (Bld) [#/Vol] 0.6 10*3/uL 0.0 - 0.7 10*3/uL [facility] Monocytes/100 WBC (Bld) 12.0 % High 0.0 - 10.0 % [facility] Neutrophils (Bld) [#/Vol] 3.0 10*3/uL 1.4 - 6.5 10*3/uL [facility] Neutrophils/100 WBC (Bld) 58.0 % 37.0 - 75.0 % [facility] Platelet mean volume (Bld) [Entitic vol] 6.5 fL Low [facility] Platelets (Bld) [#/Vol] 470 10*3/uL High 130 - 400 10*3/uL [facility] RBC (Bld) [#/Vol] 3.30 10*6/uL Low 4.0 - 5.4 10*6/uL [facility] WBC (Bld) [#/Vol] 5.1 10*3/uL 3.6 - 11.0 10*3/uL [facility] No Panel Informationon 01-27 GFR COMMENT Average GFR for 70+ years old = 75. [facility] Interpretation and review of laboratory results Abnormal [facility] ABSOLUTE BASOPHIL COUNT 0.1 10*3/uL 0.0 - 0.2 10*3/uL [facility] Interpretation and review of laboratory results Abnormal [facility] BMP FASTINGon 01-27-2024 Anion gap [Moles/Vol] 3 mmol/L Low 8-16 [facility] Calcium [Mass/Vol] 8.6 mg/dL Normal 8.4-10.2 [facility] Chloride [Moles/Vol] 102 mmol/L Normal 98-107 [facility] Comment on above: Result Comment: Shonda matthews note: Triglyceride levels of 600mg/dL or higher may positively bias chloride results by approximately 2.1 mmol CO2 [Moles/Vol] 30 mmol/L Normal 22-30 [facility] Creatinine [Mass/Vol] 0.70 mg/dL Normal 0.7-1.2 [facility] EST. GFR, 103 ml/min/1.73sq.m [facility] EST. GFR,Non 85 ml/min/1.73sq.m [facility] GFR Information Average GFR for 70+ years old = 75. Normal [facility] Comment on above: Result Comment: Beater Dumper aviva Kidney disease, GFR = <60. Kidney failure, GFR = <15. The GFR estimate is not adjusted for extreme body surface area or acute process, nor has it been validated for women or ethnic groups other than and . Glucose [Mass/Vol] 98 mg/dL Normal 70-100 [facility] Comment on above: Result Comment: NORMAL <100 mg/dL PREDIABETES 101-126 mg/dL DIABETES 126 mg/dL or higher Potassium [Moles/Vol] 4.0 mmol/L Normal 3.5-5.1 [facility] Sodium [Moles/Vol] 135 mmol/L Low 137-145 [facility] Urea nitrogen [Mass/Vol] 11 mg/dL Normal 7-20 [facility] C REACTIVE PROTEINon 024 CRP [Mass/Vol] 28.4 mg/L High 0-10 [facility] CBCon 01-27-2024 ABSOLUTE BAS 0.0 10*3/uL Normal 0.0-0.2 [facility] ABSOLUTE EOS 0.2 10*3/uL Normal 0.0-0.7 [facility] ABSOLUTE NEUTROPHIL COUNT 3.3 10*3/uL Normal 1.4-6.5 [facility] Basophils/100 WBC (Bld) 0.9 % Normal 0.0-2.0 [facility] DTYPE AUTO DIFF Normal [facility] Eosinophils/100 WBC (Bld) 3.3 % Normal 0.0-11.0 [facility] Lymphocytes (Bld) [#/Vol] 1.3 10*3/uL Normal 1.2-3.4 [facility] Lymphocytes/100 WBC (Bld) 23.9 % Normal 20.0-55.0 [facility] Monocytes (Bld) [#/Vol] 0.6 10*3/uL Normal 0.0-0.7 [facility] Monocytes/100 WBC (Bld) 11.0 % High 0.0-10.0 [facility] Neutrophils/100 WBC (Bld) 60.9 % Normal 37.0-75.0 [facility] Erythrocyte distribution width (RBC) [Ratio] 14.9 % High 11.5-14.5 [facility] Hematocrit (Bld) [Volume fraction] 30.7 % Low 36.0-48.0 [facility] Hemoglobin (Bld) [Mass/Vol] 10.3 g/dL Low 12.0-16.0 [facility] MCH (RBC) [Entitic mass] 32.2 pg Normal 26.0-35.0 [facility] MCHC (RBC) [Mass/Vol] 33.4 g/dL Normal 27.0-37.0 [facility] MCV (RBC) [Entitic vol] 96.3 fL Normal 80.0-100.0 [facility] Platelet mean volume (Bld) [Entitic vol] 6.6 fL Low 7.4-11.0 [facility] Platelets (Bld) [#/Vol] 438 10*3/uL High 130-400 [facility] RBC (Bld) [#/Vol] 3.19 10*6/uL Low 4.0-5.4 [facility] WBC (Bld) [#/Vol] 5.4 10*3/uL Normal 3.6-11.0 [facility] Laboratory - Chemistry and C hemistry - challengeon 01-27-2024 Anion gap [Moles/Vol] 3 mmol/L Low [facility] Calcium [Mass/Vol] 8.6 mg/dL [facility] Chloride [Moles/Vol] 102 mmol/L [facility] CO2 [Moles/Vol] 30 mmol/L [facility] Creatinine [Mass/Vol] 0.70 mg/dL [facility] CRP [Mass/Vol] 28.4 mg/L High 0 - 10 MG/L [facility] GFR/1.73 sq M.predicted among blacks MDRD (S/P/Bld) [Vol rate/Area] 103 mL/min/{1.73_m2} ml/min/1.73sq .m [facility] GFR/1.73 sq M.predicted among non-blacks MDRD (S/P/Bld) [Vol rate/Area] 85 mL/min/{1.73_m2} ml/min/1.73sq .m [facility] Glucose post fast [Mass/Vol] 98 mg/dL [facility] Potassium [Moles/Vol] 4.0 mmol/L [facility] Sodium [Moles/Vol] 135 mmol/L Low [facility] Urea nitrogen [Mass/Vol] 11 mg/dL [facility] Laboratory - Hematology and Cell countson 01-27-2024 Basophils/100 WBC (Bld) 0.9 % 0.0 - 2.0 % [facility] Differential cell count method Nom (Bld) AUTO DIFF % [facility] Eosinophils (Bld) [#/Vol] 0.2 10*3/uL 0.0 - 0.7 10*3/uL [facility] Eosinophils/100 WBC (Bld) 3.3 % 0.0 - 11.0 % [facility] Erythrocyte distribution width (RBC) [Ratio] 14.9 % High 11.5 - 14.5 % [facility] Hematocrit (Bld) [Volume fraction] 30.7 % Low 36.0 - 48.0 % [facility] Hemoglobin (Bld) [Mass/Vol] 10.3 g/dL Low [facility] Lymphocytes (Bld) [#/Vol] 1.3 10*3/uL 1.2 - 3.4 10*3/uL [facility] Lymphocytes/100 WBC (Bld) 23.9 % 20.0 - 55.0 % [facility] MCH (RBC) [Entitic mass] 32.2 pg 26.0 - 35.0 PG [facility] MCHC (RBC) [Mass/Vol] 33.4 g/dL [facility] MCV (RBC) [Entitic vol] 96.3 fL [facility] Monocytes (Bld) [#/Vol] 0.6 10*3/uL 0.0 - 0.7 10*3/uL [facility] Monocytes/100 WBC (Bld) 11.0 % High 0.0 - 10.0 % [facility] Neutrophils (Bld) [#/Vol] 3.3 10*3/uL 1.4 - 6.5 10*3/uL [facility] Neutrophils/100 WBC (Bld) 60.9 % 37.0 - 75.0 % [facility] Platelet mean volume (Bld) [Entitic vol] 6.6 fL Low [facility] Platelets (Bld) [#/Vol] 438 10*3/uL High 130 - 400 10*3/uL [facility] RBC (Bld) [#/Vol] 3.19 10*6/uL Low 4.0 - 5.4 10*6/uL [facility] WBC (Bld) [#/Vol] 5.4 10*3/uL 3.6 - 11.0 10*3/uL [facility] No Panel Informationon 01-26 GFR COMMENT Average GFR for 70+ years old = 75. [facility] Interpretation and review of laboratory results Abnormal [facility] ABSOLUTE BASOPHIL COUNT 0.0 10*3/uL 0.0 - 0.2 10*3/uL [facility] Interpretation and review of laboratory results Abnormal [facility] BMP FASTINGon 01-26-2024 Anion gap [Moles/Vol] 1 mmol/L Low 8-16 [facility] Calcium [Mass/Vol] 8.2 mg/dL Low 8.4-10.2 [facility] Chloride [Moles/Vol] 102 mmol/L Normal 98-107 [facility] Comment on above: Result Comment: Shonda matthews note: Triglyceride levels of 600mg/dL or higher may positively bias chloride results by approximately 2.1 mmol CO2 [Moles/Vol] 31 mmol/L High 22-30 [facility] Creatinine [Mass/Vol] 0.70 mg/dL Normal 0.7-1.2 [facility] EST. GFR, 103 ml/min/1.73sq.m Normal [facility] EST. GFR,Non 85 ml/min/1.73sq.m Normal [facility] GFR Information Average GFR for 70+ years old = 75. Normal [facility] Comment on above: Result Comment: Beater Dumper aviva Kidney disease, GFR = <60. Kidney failure, GFR = <15. The GFR estimate is not adjusted for extreme body surface area or acute process, nor has it been validated for women or ethnic groups other than and . Glucose [Mass/Vol] 109 mg/dL High 70-100 [facility] Comment on above: Result Comment: NORMAL <100 mg/dL PREDIABETES 101-126 mg/dL DIABETES 126 mg/dL or higher Potassium [Moles/Vol] 3.9 mmol/L Normal 3.5-5.1 [facility] Sodium [Moles/Vol] 134 mmol/L Low 137-145 [facility] Urea nitrogen [Mass/Vol] 12 mg/dL Normal 7-20 [facility] C REACTIVE PROTEINon 024 CRP [Mass/Vol] 28.4 mg/L High 0-10 [facility] CBCon 01-26-2024 ABSOLUTE BAS 0.0 10*3/uL Normal 0.0-0.2 [facility] ABSOLUTE EOS 0.2 10*3/uL Normal 0.0-0.7 [facility] ABSOLUTE NEUTROPHIL COUNT 3.7 10*3/uL Normal 1.4-6.5 [facility] Basophils/100 WBC (Bld) 0.9 % Normal 0.0-2.0 [facility] DTYPE AUTO DIFF Normal [facility] Eosinophils/100 WBC (Bld) 2.8 % Normal 0.0-11.0 [facility] Lymphocytes (Bld) [#/Vol] 1.2 10*3/uL Normal 1.2-3.4 [facility] Lymphocytes/100 WBC (Bld) 21.0 % Normal 20.0-55.0 [facility] Monocytes (Bld) [#/Vol] 0.7 10*3/uL Normal 0.0-0.7 [facility] Monocytes/100 WBC (Bld) 11.6 % High 0.0-10.0 [facility] Neutrophils/100 WBC (Bld) 63.7 % Normal 37.0-75.0 [facility] Erythrocyte distribution width (RBC) [Ratio] 14.6 % High 11.5-14.5 [facility] Hematocrit (Bld) [Volume fraction] 29.0 % Low 36.0-48.0 [facility] Hemoglobin (Bld) [Mass/Vol] 9.8 g/dL Low 12.0-16.0 [facility] MCH (RBC) [Entitic mass] 32.0 pg Normal 26.0-35.0 [facility] MCHC (RBC) [Mass/Vol] 33.6 g/dL Normal 27.0-37.0 [facility] MCV (RBC) [Entitic vol] 95.3 fL Normal 80.0-100.0 [facility] Platelet mean volume (Bld) [Entitic vol] 6.7 fL Low 7.4-11.0 [facility] Platelets (Bld) [#/Vol] 440 10*3/uL High 130-400 [facility] RBC (Bld) [#/Vol] 3.05 10*6/uL Low 4.0-5.4 [facility] WBC (Bld) [#/Vol] 5.9 10*3/uL Normal 3.6-11.0 [facility] Laboratory - Chemistry and C hemistry - challengeon 01-26-2024 Anion gap [Moles/Vol] 1 mmol/L Low [facility] Calcium [Mass/Vol] 8.2 mg/dL Low [facility] Chloride [Moles/Vol] 102 mmol/L [facility] CO2 [Moles/Vol] 31 mmol/L High [facility] Creatinine [Mass/Vol] 0.70 mg/dL [facility] CRP [Mass/Vol] 28.4 mg/L High 0 - 10 MG/L [facility] GFR/1.73 sq M.predicted among blacks MDRD (S/P/Bld) [Vol rate/Area] 103 mL/min/{1.73_m2} ml/min/1.73sq .m [facility] GFR/1.73 sq M.predicted among non-blacks MDRD (S/P/Bld) [Vol rate/Area] 85 mL/min/{1.73_m2} ml/min/1.73sq .m [facility] Glucose post fast [Mass/Vol] 109 mg/dL High [facility] Potassium [Moles/Vol] 3.9 mmol/L [facility] Sodium [Moles/Vol] 134 mmol/L Low [facility] Urea nitrogen [Mass/Vol] 12 mg/dL [facility] Laboratory - Hematology and Cell countson 01-26-2024 Basophils/100 WBC (Bld) 0.9 % 0.0 - 2.0 % [facility] Differential cell count method Nom (Bld) AUTO DIFF % [facility] Eosinophils (Bld) [#/Vol] 0.2 10*3/uL 0.0 - 0.7 10*3/uL [facility] Eosinophils/100 WBC (Bld) 2.8 % 0.0 - 11.0 % [facility] Erythrocyte distribution width (RBC) [Ratio] 14.6 % High 11.5 - 14.5 % [facility] Hematocrit (Bld) [Volume fraction] 29.0 % Low 36.0 - 48.0 % [facility] Hemoglobin (Bld) [Mass/Vol] 9.8 g/dL Low [facility] Lymphocytes (Bld) [#/Vol] 1.2 10*3/uL 1.2 - 3.4 10*3/uL [facility] Lymphocytes/100 WBC (Bld) 21.0 % 20.0 - 55.0 % [facility] MCH (RBC) [Entitic mass] 32.0 pg 26.0 - 35.0 PG [facility] MCHC (RBC) [Mass/Vol] 33.6 g/dL [facility] MCV (RBC) [Entitic vol] 95.3 fL [facility] Monocytes (Bld) [#/Vol] 0.7 10*3/uL 0.0 - 0.7 10*3/uL [facility] Monocytes/100 WBC (Bld) 11.6 % High 0.0 - 10.0 % [facility] Neutrophils (Bld) [#/Vol] 3.7 10*3/uL 1.4 - 6.5 10*3/uL [facility] Neutrophils/100 WBC (Bld) 63.7 % 37.0 - 75.0 % [facility] Platelet mean volume (Bld) [Entitic vol] 6.7 fL Low [facility] Platelets (Bld) [#/Vol] 440 10*3/uL High 130 - 400 10*3/uL [facility] RBC (Bld) [#/Vol] 3.05 10*6/uL Low 4.0 - 5.4 10*6/uL [facility] WBC (Bld) [#/Vol] 5.9 10*3/uL 3.6 - 11.0 10*3/uL [facility] No Panel Informationon 01-25 GFR COMMENT Average GFR for 70+ years old = 75. [facility] Interpretation and review of laboratory results Abnormal [facility] ABSOLUTE BASOPHIL COUNT 0.0 10*3/uL 0.0 - 0.2 10*3/uL [facility] Interpretation and review of laboratory results Abnormal [facility] BMP FASTINGon 01-25-2024 Anion gap [Moles/Vol] 3 mmol/L Low 8-16 [facility] Calcium [Mass/Vol] 8.3 mg/dL Low 8.4-10.2 [facility] Chloride [Moles/Vol] 101 mmol/L Normal 98-107 [facility] Comment on above: Result Comment: Shonda matthews note: Triglyceride levels of 600mg/dL or higher may positively bias chloride results by approximately 2.1 mmol CO2 [Moles/Vol] 32 mmol/L High 22-30 [facility] Creatinine [Mass/Vol] 0.70 mg/dL Normal 0.7-1.2 [facility] EST. GFR, 103 ml/min/1.73sq.m [facility] EST. GFR,Non 85 ml/min/1.73sq.m Normal [facility] GFR Information Average GFR for 70+ years old = 75. Normal [facility] Comment on above: Result Comment: Beater Dumper aviva Kidney disease, GFR = <60. Kidney failure, GFR = <15. The GFR estimate is not adjusted for extreme body surface area or acute process, nor has it been validated for women or ethnic groups other than and . Glucose [Mass/Vol] 92 mg/dL Normal 70-100 [facility] Comment on above: Result Comment: NORMAL <100 mg/dL PREDIABETES 101-126 mg/dL DIABETES 126 mg/dL or higher Potassium [Moles/Vol] 3.8 mmol/L Normal 3.5-5.1 [facility] Sodium [Moles/Vol] 136 mmol/L Low 137-145 [facility] Urea nitrogen [Mass/Vol] 6 mg/dL Low 7-20 [facility] C REACTIVE PROTEINon 024 CRP [Mass/Vol] 33.6 mg/L High 0-10 [facility] CBCon 01-25-2024 ABSOLUTE BAS 0.0 10*3/uL Normal 0.0-0.2 [facility] ABSOLUTE EOS 0.2 10*3/uL Normal 0.0-0.7 [facility] ABSOLUTE NEUTROPHIL COUNT 3.7 10*3/uL Normal 1.4-6.5 [facility] Basophils/100 WBC (Bld) 0.7 % Normal 0.0-2.0 [facility] DTYPE AUTO DIFF Normal [facility] Eosinophils/100 WBC (Bld) 2.6 % Normal 0.0-11.0 [facility] Lymphocytes (Bld) [#/Vol] 1.2 10*3/uL Normal 1.2-3.4 [facility] Lymphocytes/100 WBC (Bld) 21.6 % Normal 20.0-55.0 [facility] Monocytes (Bld) [#/Vol] 0.6 10*3/uL Normal 0.0-0.7 [facility] Monocytes/100 WBC (Bld) 11.3 % High 0.0-10.0 [facility] Neutrophils/100 WBC (Bld) 63.8 % Normal 37.0-75.0 [facility] Erythrocyte distribution width (RBC) [Ratio] 14.4 % Normal 11.5-14.5 [facility] Hematocrit (Bld) [Volume fraction] 29.4 % Low 36.0-48.0 [facility] Hemoglobin (Bld) [Mass/Vol] 10.1 g/dL Low 12.0-16.0 [facility] MCH (RBC) [Entitic mass] 32.5 pg Normal 26.0-35.0 [facility] MCHC (RBC) [Mass/Vol] 34.3 g/dL Normal 27.0-37.0 [facility] MCV (RBC) [Entitic vol] 94.8 fL Normal 80.0-100.0 [facility] Platelet mean volume (Bld) [Entitic vol] 6.7 fL Low 7.4-11.0 [facility] Platelets (Bld) [#/Vol] 440 10*3/uL High 130-400 [facility] RBC (Bld) [#/Vol] 3.10 10*6/uL Low 4.0-5.4 [facility] WBC (Bld) [#/Vol] 5.7 10*3/uL Normal 3.6-11.0 [facility] Laboratory - Chemistry and C hemistry - challengeon 01-25-2024 Anion gap [Moles/Vol] 3 mmol/L Low [facility] Calcium [Mass/Vol] 8.3 mg/dL Low [facility] Chloride [Moles/Vol] 101 mmol/L [facility] CO2 [Moles/Vol] 32 mmol/L High [facility] Creatinine [Mass/Vol] 0.70 mg/dL [facility] CRP [Mass/Vol] 33.6 mg/L High 0 - 10 MG/L [facility] GFR/1.73 sq M.predicted among blacks MDRD (S/P/Bld) [Vol rate/Area] 103 mL/min/{1.73_m2} ml/min/1.73sq .m [facility] GFR/1.73 sq M.predicted among non-blacks MDRD (S/P/Bld) [Vol rate/Area] 85 mL/min/{1.73_m2} ml/min/1.73sq .m [facility] Glucose post fast [Mass/Vol] 92 mg/dL [facility] Potassium [Moles/Vol] 3.8 mmol/L [facility] Sodium [Moles/Vol] 136 mmol/L Low [facility] Urea nitrogen [Mass/Vol] 6 mg/dL Low [facility] Laboratory - Hematology and Cell countson 01-25-2024 Basophils/100 WBC (Bld) 0.7 % 0.0 - 2.0 % [facility] Differential cell count method Nom (Bld) AUTO DIFF % [facility] Eosinophils (Bld) [#/Vol] 0.2 10*3/uL 0.0 - 0.7 10*3/uL [facility] Eosinophils/100 WBC (Bld) 2.6 % 0.0 - 11.0 % [facility] Erythrocyte distribution width (RBC) [Ratio] 14.4 % 11.5 - 14.5 % [facility] Hematocrit (Bld) [Volume fraction] 29.4 % Low 36.0 - 48.0 % [facility] Hemoglobin (Bld) [Mass/Vol] 10.1 g/dL Low [facility] Lymphocytes (Bld) [#/Vol] 1.2 10*3/uL 1.2 - 3.4 10*3/uL [facility] Lymphocytes/100 WBC (Bld) 21.6 % 20.0 - 55.0 % [facility] MCH (RBC) [Entitic mass] 32.5 pg 26.0 - 35.0 PG [facility] MCHC (RBC) [Mass/Vol] 34.3 g/dL [facility] MCV (RBC) [Entitic vol] 94.8 fL [facility] Monocytes (Bld) [#/Vol] 0.6 10*3/uL 0.0 - 0.7 10*3/uL [facility] Monocytes/100 WBC (Bld) 11.3 % High 0.0 - 10.0 % [facility] Neutrophils (Bld) [#/Vol] 3.7 10*3/uL 1.4 - 6.5 10*3/uL [facility] Neutrophils/100 WBC (Bld) 63.8 % 37.0 - 75.0 % [facility] Platelet mean volume (Bld) [Entitic vol] 6.7 fL Low [facility] Platelets (Bld) [#/Vol] 440 10*3/uL High 130 - 400 10*3/uL [facility] RBC (Bld) [#/Vol] 3.10 10*6/uL Low 4.0 - 5.4 10*6/uL [facility] WBC (Bld) [#/Vol] 5.7 10*3/uL 3.6 - 11.0 10*3/uL [facility] No Panel Informationon 01-24 GFR COMMENT Average GFR for 70+ years old = 75. [facility] Interpretation and review of laboratory results Abnormal [facility] ABSOLUTE BASOPHIL COUNT 0.0 10*3/uL 0.0 - 0.2 10*3/uL [facility] Interpretation and review of laboratory results Abnormal [facility] BMP FASTINGon 01-24-2024 Anion gap [Moles/Vol] 2 mmol/L Low 8-16 [facility] Calcium [Mass/Vol] 8.5 mg/dL Normal 8.4-10.2 [facility] Chloride [Moles/Vol] 102 mmol/L Normal 98-107 [facility] Comment on above: Result Comment: Shonda matthews note: Triglyceride levels of 600mg/dL or higher may positively bias chloride results by approximately 2.1 mmol CO2 [Moles/Vol] 31 mmol/L High 22-30 [facility] Creatinine [Mass/Vol] 0.70 mg/dL Normal 0.7-1.2 [facility] EST. GFR, 103 ml/min/1.73sq.m Normal [facility] EST. GFR,Non 85 ml/min/1.73sq.m Normal [facility] GFR Information Average GFR for 70+ years old = 75. Normal [facility] Comment on above: Result Comment: Beater Dumper aviva Kidney disease, GFR = <60. Kidney failure, GFR = <15. The GFR estimate is not adjusted for extreme body surface area or acute process, nor has it been validated for women or ethnic groups other than and . Glucose [Mass/Vol] 104 mg/dL High 70-100 [facility] Comment on above: Result Comment: NORMAL <100 mg/dL PREDIABETES 101-126 mg/dL DIABETES 126 mg/dL or higher Potassium [Moles/Vol] 3.5 mmol/L Normal 3.5-5.1 [facility] Sodium [Moles/Vol] 135 mmol/L Low 137-145 [facility] Urea nitrogen [Mass/Vol] 8 mg/dL Normal 7-20 [facility] C DIFFICILE DNAon 01-24-2024 C. DIFF 027 Negative Normal NEGATIVE [facility] Comment on above: Result Comment: Hype rvirulent C. difficile strain 027/NAP1/BI TESTING PERFORMED BY PCR Performed By: #### G IPAN ####Testing [place] [address] TOXIGENIC C. DIFF Negative Normal NEGATIVE [facility] Comment on above: Performed By: #### G IPAN ####Testing performed at [address] [address] C REACTIVE PROTEINon 024 CRP [Mass/Vol] 46.5 mg/L High 0-10 [facility] CBCon 01-24-2024 ABSOLUTE BAS 0.0 10*3/uL Normal 0.0-0.2 [facility] ABSOLUTE EOS 0.1 10*3/uL Normal 0.0-0.7 [facility] ABSOLUTE NEUTROPHIL COUNT 4.2 10*3/uL Normal 1.4-6.5 [facility] Basophils/100 WBC (Bld) 0.7 % Normal 0.0-2.0 [facility] DTYPE AUTO DIFF Normal [facility] Eosinophils/100 WBC (Bld) 2.2 % Normal 0.0-11.0 [facility] Lymphocytes (Bld) [#/Vol] 1.2 10*3/uL Normal 1.2-3.4 [facility] Lymphocytes/100 WBC (Bld) 19.3 % Low 20.0-55.0 [facility] Monocytes (Bld) [#/Vol] 0.7 10*3/uL Normal 0.0-0.7 [facility] Monocytes/100 WBC (Bld) 10.6 % High 0.0-10.0 [facility] Neutrophils/100 WBC (Bld) 67.2 % Normal 37.0-75.0 [facility] Erythrocyte distribution width (RBC) [Ratio] 14.5 % Normal 11.5-14.5 [facility] Hematocrit (Bld) [Volume fraction] 29.3 % Low 36.0-48.0 [facility] Hemoglobin (Bld) [Mass/Vol] 10.1 g/dL Low 12.0-16.0 [facility] MCH (RBC) [Entitic mass] 32.7 pg Normal 26.0-35.0 [facility] MCHC (RBC) [Mass/Vol] 34.4 g/dL Normal 27.0-37.0 [facility] MCV (RBC) [Entitic vol] 95.1 fL Normal 80.0-100.0 [facility] Platelet mean volume (Bld) [Entitic vol] 6.8 fL Low 7.4-11.0 [facility] Platelets (Bld) [#/Vol] 424 10*3/uL High 130-400 [facility] RBC (Bld) [#/Vol] 3.08 10*6/uL Low 4.0-5.4 [facility] WBC (Bld) [#/Vol] 6.2 10*3/uL Normal 3.6-11.0 [facility] GI PANELon 01-24-2024 ADENOVIRUS F 40/41 Not detected Normal NOT DETECTED [facility] Comment on above: Result Comment: Mandi baugh: Nucleic acid may persist in vivo independently of organism viability. Additionally, some organisms may be carried asymptomatically. Detection of target organisms does not imply that the corresponding organisms are infectious or are the causative agent of clinical symptoms. Results must be correlated with clinical history, epidemiological data and other clinical information available. Testing performed at [place] [address] Performed By: #### G IPAN ####Testing [place] [address] ASTROVIRUS Not detected Normal NOT DETECTED [facility] Comment on above: Performed By: #### G IPAN ####Testing [place] [address] CAMPYLOBACTER Not detected Normal NOT DETECTED [facility] Comment on above: Performed By: #### G IPAN ####Testing [place] [address] CRYPTOSPORIDIUM Not detected Normal NOT DETECTED [facility] Comment on above: Performed By: #### G IPAN ####Testing [place] [address] CYCLOSPORA CAYETANENSIS Not detected Normal NOT DETECTED [facility] Comment on above: Performed By: #### G IPAN ####Testing [place] [address] ENTAMOEBA HISTOLYTICA Not detected Normal NOT DETECTED [facility] Comment on above: Performed By: #### G IPAN ####Testing [place] [address] ENTEROAGGREGATIVE E COLI Not detected Normal NOT DETECTED [facility] Comment on above: Performed By: #### G IPAN ####Testing [place] [address] ENTEROTOXIGENIC E COLI Not detected Normal NOT DETECTED [facility] Comment on above: Performed By: #### G IPAN ####Testing performed at [address] [address] ENTROPATHOGENIC E COLI Not detected Normal NOT DETECTED [facility] Comment on above: Performed By: #### G IPAN ####Testing performed at [place] [id number] GIARDIA LAMBLIA Not detected Normal NOT DETECTED [facility] Comment on above: Performed By: #### G IPAN ####Testing [place] [address] NOROVIRUS GI/GII Not detected Normal NOT DETECTED [facility] Comment on above: Performed By: #### G IPAN ####Testing [place] [address] PLESIOMONAS SHIGELLOIDES Not detected Normal NOT DETECTED [facility] Comment on above: Performed By: #### G IPAN ####Testing [place] [address] ROTAVIRUS A Not detected Normal NOT DETECTED [facility] Comment on above: Performed By: #### G IPAN ####Testing [place] [address] SALMONELLA Not detected Normal NOT DETECTED [facility] Comment on above: Performed By: #### G IPAN ####Testing [place] [address] SAPOVIRUS Not detected Normal NOT DETECTED [facility] Comment on above: Performed By: #### G IPAN ####Testing performed at [place] [id number] SHIGA-LIKE TOXIN-PRODUCING E COLI Not detected Normal NOT DETECTED [facility] Comment on above: Performed By: #### G IPAN ####Testing performed at [place] [id number] SHIGELLA/ENTEROINVASI VE E COLI Not detected Normal NOT DETECTED [facility] Comment on above: Performed By: #### G IPAN ####Testing [place] [address] VIBRIO Not detected Normal NOT DETECTED [facility] Comment on above: Performed By: #### G IPAN ####Testing [place] [address] VIBRIO CHOLERAE Not detected Normal NOT DETECTED [facility] Comment on above: Performed By: #### G IPAN ####Testing [place] [address] YESINIA ENTEROCOLITICA Not detected Normal NOT DETECTED [facility] Comment on above: Performed By: #### G IPAN ####Testing [place] [address] Laboratory - Chemistry and C hemistry - challengeon 01-24-2024 Anion gap [Moles/Vol] 2 mmol/L Low [facility] Calcium [Mass/Vol] 8.5 mg/dL [facility] Chloride [Moles/Vol] 102 mmol/L [facility] CO2 [Moles/Vol] 31 mmol/L High [facility] Creatinine [Mass/Vol] 0.70 mg/dL [facility] CRP [Mass/Vol] 46.5 mg/L High 0 - 10 MG/L [facility] GFR/1.73 sq M.predicted among blacks MDRD (S/P/Bld) [Vol rate/Area] 103 mL/min/{1.73_m2} ml/min/1.73sq .m [facility] GFR/1.73 sq M.predicted among non-blacks MDRD (S/P/Bld) [Vol rate/Area] 85 mL/min/{1.73_m2} ml/min/1.73sq .m [facility] Glucose post fast [Mass/Vol] 104 mg/dL [facility] Potassium [Moles/Vol] 3.5 mmol/L [facility] Sodium [Moles/Vol] 135 mmol/L Low [facility] Urea nitrogen [Mass/Vol] 8 mg/dL [facility] Laboratory - Hematology and Cell countson 01-24-2024 Basophils/100 WBC (Bld) 0.7 % 0.0 - 2.0 % [facility] Differential cell count method Nom (Bld) AUTO DIFF % [facility] Eosinophils (Bld) [#/Vol] 0.1 10*3/uL 0.0 - 0.7 10*3/uL [facility] Eosinophils/100 WBC (Bld) 2.2 % 0.0 - 11.0 % [facility] Erythrocyte distribution width (RBC) [Ratio] 14.5 % 11.5 - 14.5 % [facility] Hematocrit (Bld) [Volume fraction] 29.3 % Low 36.0 - 48.0 % [facility] Hemoglobin (Bld) [Mass/Vol] 10.1 g/dL Low [facility] Lymphocytes (Bld) [#/Vol] 1.2 10*3/uL 1.2 - 3.4 10*3/uL [facility] Lymphocytes/100 WBC (Bld) 19.3 % Low 20.0 - 55.0 % [facility] MCH (RBC) [Entitic mass] 32.7 pg 26.0 - 35.0 PG [facility] MCHC (RBC) [Mass/Vol] 34.4 g/dL [facility] MCV (RBC) [Entitic vol] 95.1 fL [facility] Monocytes (Bld) [#/Vol] 0.7 10*3/uL 0.0 - 0.7 10*3/uL [facility] Monocytes/100 WBC (Bld) 10.6 % High 0.0 - 10.0 % [facility] Neutrophils (Bld) [#/Vol] 4.2 10*3/uL 1.4 - 6.5 10*3/uL [facility] Neutrophils/100 WBC (Bld) 67.2 % 37.0 - 75.0 % [facility] Platelet mean volume (Bld) [Entitic vol] 6.8 fL Low [facility] Platelets (Bld) [#/Vol] 424 10*3/uL High 130 - 400 10*3/uL [facility] RBC (Bld) [#/Vol] 3.08 10*6/uL Low 4.0 - 5.4 10*6/uL [facility] WBC (Bld) [#/Vol] 6.2 10*3/uL 3.6 - 11.0 10*3/uL [facility] Laboratory - Microbiology an d Antimicrobial susceptibilityon 01-24-2024 Adenovirus 40+41 DNA SMILEY+non-probe Ql (Stl) Not detected NOT DETECTED [facility] Astrovirus subtypes 1-8 RNA SMILEY+non-probe Ql (Stl) Not detected NOT DETECTED [facility] C. cayetanensis DNA SMILEY+probe Ql (Unsp spec) Not detected NOT DETECTED [facility] C. coli+jejuni+upsaliens is DNA SMILEY+non-probe Ql (Stl) Not detected NOT DETECTED [facility] Cryptosporidium sp DNA SMILEY+probe Ql (Unsp spec) Not detected NOT DETECTED [facility] E. coli enteroaggregative Kandis plasmid aggR+aatA genes SMILEY+non-probe Ql (Stl) Not detected NOT DETECTED [facility] E. histolytica DNA SMILEY+probe Ql (Unsp spec) Not detected NOT DETECTED [facility] G. lamblia DNA SMILEY+non-probe Ql (Stl) Not detected NOT DETECTED [facility] P. shigelloides DNA SMILEY+non-probe Ql (Stl) Not detected NOT DETECTED [facility] Rotavirus A RNA SMILEY+non-probe Ql (Stl) Not detected NOT DETECTED [facility] S. enterica+bongori DNA SMILEY+non-probe Ql (Stl) Not detected NOT DETECTED [facility] V. cholerae DNA SMILEY+non-probe Ql (Stl) Not detected NOT DETECTED [facility] V. cholerae+parahaemolyt icus+vulnificus DNA SMILEY+non-probe Ql (Stl) Not detected NOT DETECTED [facility] Y. enterocolitica DNA SMILEY+non-probe Ql (Stl) Not detected NOT DETECTED [facility] No Panel Informationon 01-23 E COLI (EIEC) Not detected NOT DETECTED [facility] E COLI (EPEC) Not detected NOT DETECTED [facility] E COLI (ETEC) Not detected NOT DETECTED [facility] NOROVIRUS RNA Not detected NOT DETECTED [facility] SAPOVIRUS Not detected NOT DETECTED [facility] SHIGA TOXIN E. COLI Not detected NOT DETECTED [facility] C. Diff 027 Negative NEGATIVE [facility] C.DIFFICILE TOXIN,PCR Negative NEGATIVE [facility] GFR COMMENT Average GFR for 70+ years old = 75. [facility] Interpretation and review of laboratory results Abnormal [facility] ABSOLUTE BASOPHIL COUNT 0.0 10*3/uL 0.0 - 0.2 10*3/uL [facility] Interpretation and review of laboratory results Abnormal [facility] BMP FASTINGon 01-23-2024 Anion gap [Moles/Vol] 1 mmol/L Low 8-16 [facility] Calcium [Mass/Vol] 8.5 mg/dL Normal 8.4-10.2 [facility] Chloride [Moles/Vol] 101 mmol/L Normal 98-107 [facility] Comment on above: Result Comment: Shonda matthews note: Triglyceride levels of 600mg/dL or higher may positively bias chloride results by approximately 2.1 mmol CO2 [Moles/Vol] 33 mmol/L High 22-30 [facility] Creatinine [Mass/Vol] 0.60 mg/dL Low 0.7-1.2 [facility] EST. GFR, 123 ml/min/1.73sq.m [facility] EST. GFR,Non 102 ml/min/1.73sq.m [facility] GFR Information Average GFR for 70+ years old = 75. Normal [facility] Comment on above: Result Comment: Beater Dumper aviva Kidney disease, GFR = <60. Kidney failure, GFR = <15. The GFR estimate is not adjusted for extreme body surface area or acute process, nor has it been validated for women or ethnic groups other than and . Glucose [Mass/Vol] 96 mg/dL Normal 70-100 [facility] Comment on above: Result Comment: NORMAL <100 mg/dL PREDIABETES 101-126 mg/dL DIABETES 126 mg/dL or higher Potassium [Moles/Vol] 3.7 mmol/L Normal 3.5-5.1 [facility] Sodium [Moles/Vol] 135 mmol/L Low 137-145 [facility] Urea nitrogen [Mass/Vol] 8 mg/dL Normal 7-20 [facility] C REACTIVE PROTEINon 024 CRP [Mass/Vol] 42.0 mg/L High 0-10 [facility] CBCon 01-23-2024 ABSOLUTE BAS 0.0 10*3/uL Normal 0.0-0.2 [facility] ABSOLUTE EOS 0.1 10*3/uL Normal 0.0-0.7 [facility] ABSOLUTE NEUTROPHIL COUNT 4.0 10*3/uL Normal 1.4-6.5 [facility] Basophils/100 WBC (Bld) 0.8 % Normal 0.0-2.0 [facility] DTYPE AUTO DIFF Normal [facility] Eosinophils/100 WBC (Bld) 2.4 % Normal 0.0-11.0 [facility] Lymphocytes (Bld) [#/Vol] 1.2 10*3/uL Normal 1.2-3.4 [facility] Lymphocytes/100 WBC (Bld) 19.6 % Low 20.0-55.0 [facility] Monocytes (Bld) [#/Vol] 0.6 10*3/uL Normal 0.0-0.7 [facility] Monocytes/100 WBC (Bld) 9.8 % Normal 0.0-10.0 [facility] Neutrophils/100 WBC (Bld) 67.4 % Normal 37.0-75.0 [facility] Erythrocyte distribution width (RBC) [Ratio] 13.9 % Normal 11.5-14.5 [facility] Hematocrit (Bld) [Volume fraction] 29.1 % Low 36.0-48.0 [facility] Hemoglobin (Bld) [Mass/Vol] 10.0 g/dL Low 12.0-16.0 [facility] MCH (RBC) [Entitic mass] 32.2 pg Normal 26.0-35.0 [facility] MCHC (RBC) [Mass/Vol] 34.3 g/dL Normal 27.0-37.0 [facility] MCV (RBC) [Entitic vol] 94.0 fL Normal 80.0-100.0 [facility] Platelet mean volume (Bld) [Entitic vol] 6.7 fL Low 7.4-11.0 [facility] Platelets (Bld) [#/Vol] 425 10*3/uL High 130-400 [facility] RBC (Bld) [#/Vol] 3.10 10*6/uL Low 4.0-5.4 [facility] WBC (Bld) [#/Vol] 6.0 10*3/uL Normal 3.6-11.0 [facility] LIPASE,SERUMon 01-23-2024 LIPASE,SERUM 32 U/L Normal 23-300 [facility] LIVER PANELon 01-23-2024 Albumin [Mass/Vol] 2.6 g/dL Low 3.5-5.0 [facility] ALP [Catalytic activity/Vol] 99 U/L Normal 38-126 [facility] ALT [Catalytic activity/Vol] 10 U/L Normal <35 [facility] AST [Catalytic activity/Vol] 25 U/L Normal 14-36 [facility] Bilirubin [Mass/Vol] 0.3 mg/dL Normal 0.2-1.3 [facility] Bilirubin.indirect [Mass/Vol] 0.3 mg/dL Normal 0-0.4 [facility] Protein [Mass/Vol] 5.6 g/dL Low 6.3-8.2 [facility] Laboratory - Chemistry and C hemistry - challengeon 01-23-2024 Albumin [Mass/Vol] 2.6 g/dL Low [facility] ALP [Catalytic activity/Vol] 99 U/L [facility] ALT [Catalytic activity/Vol] 10 U/L NINF [facility] Anion gap [Moles/Vol] 1 mmol/L Low [facility] AST [Catalytic activity/Vol] 25 U/L [facility] Bilirubin [Mass/Vol] 0.3 mg/dL [facility] Bilirubin.direct [Mass/Vol] 0.3 mg/dL [facility] Calcium [Mass/Vol] 8.5 mg/dL [facility] Chloride [Moles/Vol] 101 mmol/L [facility] CO2 [Moles/Vol] 33 mmol/L High [facility] Creatinine [Mass/Vol] 0.60 mg/dL Low [facility] CRP [Mass/Vol] 42.0 mg/L High 0 - 10 MG/L [facility] GFR/1.73 sq M.predicted among blacks MDRD (S/P/Bld) [Vol rate/Area] 123 mL/min/{1.73_m2} ml/min/1.73sq .m [facility] GFR/1.73 sq M.predicted among non-blacks MDRD (S/P/Bld) [Vol rate/Area] 102 mL/min/{1.73_m2} ml/min/1.73sq .m [facility] Glucose post fast [Mass/Vol] 96 mg/dL [facility] Lipase [Catalytic activity/Vol] 32 U/L 23 - 300 U/L [facility] Potassium [Moles/Vol] 3.7 mmol/L [facility] Protein [Mass/Vol] 5.6 g/dL Low [facility] Sodium [Moles/Vol] 135 mmol/L Low [facility] Urea nitrogen [Mass/Vol] 8 mg/dL [facility] Laboratory - Hematology and Cell countson 01-23-2024 Basophils/100 WBC (Bld) 0.8 % 0.0 - 2.0 % [facility] Differential cell count method Nom (Bld) AUTO DIFF % [facility] Eosinophils (Bld) [#/Vol] 0.1 10*3/uL 0.0 - 0.7 10*3/uL [facility] Eosinophils/100 WBC (Bld) 2.4 % 0.0 - 11.0 % [facility] Erythrocyte distribution width (RBC) [Ratio] 13.9 % 11.5 - 14.5 % [facility] Hematocrit (Bld) [Volume fraction] 29.1 % Low 36.0 - 48.0 % [facility] Hemoglobin (Bld) [Mass/Vol] 10.0 g/dL Low [facility] Lymphocytes (Bld) [#/Vol] 1.2 10*3/uL 1.2 - 3.4 10*3/uL [facility] Lymphocytes/100 WBC (Bld) 19.6 % Low 20.0 - 55.0 % [facility] MCH (RBC) [Entitic mass] 32.2 pg 26.0 - 35.0 PG [facility] MCHC (RBC) [Mass/Vol] 34.3 g/dL [facility] MCV (RBC) [Entitic vol] 94.0 fL [facility] Monocytes (Bld) [#/Vol] 0.6 10*3/uL 0.0 - 0.7 10*3/uL [facility] Monocytes/100 WBC (Bld) 9.8 % 0.0 - 10.0 % [facility] Neutrophils (Bld) [#/Vol] 4.0 10*3/uL 1.4 - 6.5 10*3/uL [facility] Neutrophils/100 WBC (Bld) 67.4 % 37.0 - 75.0 % [facility] Platelet mean volume (Bld) [Entitic vol] 6.7 fL Low [facility] Platelets (Bld) [#/Vol] 425 10*3/uL High 130 - 400 10*3/uL [facility] RBC (Bld) [#/Vol] 3.10 10*6/uL Low 4.0 - 5.4 10*6/uL [facility] WBC (Bld) [#/Vol] 6.0 10*3/uL 3.6 - 11.0 10*3/uL [facility] Laboratory - Microbiology an d Antimicrobial susceptibilityon 01-23-2024 Bacteria identified Cx Nom (Unsp spec) NO PATHOGENS ISOLATED [facility] Laboratory - Miscellaneous t estson 01-23-2024 Service comment (Unsp spec) [Interp] 01/23/2024 [facility] Laboratory - Urinalysison Leukocyte esterase+Nitrite Test strip Ql (U) Positive [facility] No Panel Informationon 01-22 SPECIMEN DESCRIPTION URINE - OTHER A [facility] GFR COMMENT Average GFR for 70+ years old = 75. [facility] Interpretation and review of laboratory results Abnormal [facility] ABSOLUTE BASOPHIL COUNT 0.0 10*3/uL 0.0 - 0.2 10*3/uL [facility] Interpretation and review of laboratory results Abnormal [facility] BMP FASTINGon 01-22-2024 Anion gap [Moles/Vol] 3 mmol/L Low 8-16 [facility] Comment on above: Performed By: #### F EPRO ####Testing performed at [address] [address] Calcium [Mass/Vol] 8.8 mg/dL Normal 8.4-10.2 [facility] Comment on above: Performed By: #### F EPRO ####Testing performed at [address] [address] Chloride [Moles/Vol] 101 mmol/L Normal 98-107 [facility] Comment on above: Result Comment: Shonda matthews note: Triglyceride levels of 600mg/dL or higher may positively bias chloride results by approximately 2.1 mmol Performed By: #### F EPRO ####Testing performed at [address] [address] CO2 [Moles/Vol] 33 mmol/L High 22-30 [facility] Comment on above: Performed By: #### F EPRO ####Testing performed at [address] [address] Creatinine [Mass/Vol] 0.60 mg/dL Low 0.7-1.2 [facility] Comment on above: Performed By: #### F EPRO ####Testing performed at [address] [place] [address] EST. GFR, 123 ml/min/1.73sq.m [facility] Comment on above: Performed By: #### F EPRO ####Testing performed at [address] [place] [address] EST. GFR,Non 102 ml/min/1.73sq.m [facility] Comment on above: Performed By: #### F EPRO ####Testing performed at [address] [place] [address] GFR Information Average GFR for 70+ years old = 75. Normal [facility] Comment on above: Result Comment: Beater Dumper aviva Kidney disease, GFR = <60. Kidney failure, GFR = <15. The GFR estimate is not adjusted for extreme body surface area or acute process, nor has it been validated for women or ethnic groups other than and . Performed By: #### F EPRO ####Testing performed at [address] [address] Glucose [Mass/Vol] 88 mg/dL Normal 70-100 [facility] Comment on above: Result Comment: NORMAL <100 mg/dL PREDIABETES 101-126 mg/dL DIABETES 126 mg/dL or higher Performed By: #### F EPRO ####Testing performed at [address] [address] Potassium [Moles/Vol] 3.7 mmol/L Normal 3.5-5.1 [facility] Comment on above: Performed By: #### F EPRO ####Testing performed at [address] [address] Sodium [Moles/Vol] 137 mmol/L Normal 137-145 [facility] Comment on above: Performed By: #### F EPRO ####Testing performed at [address] [address] Urea nitrogen [Mass/Vol] 8 mg/dL Normal 7-20 [facility] Comment on above: Performed By: #### F EPRO ####Testing performed at [address] [address] C REACTIVE PROTEINon 024 CRP [Mass/Vol] 58.3 mg/L High 0-10 [facility] Comment on above: Performed By: #### F EPRO ####Testing performed at [address] [address] CBCon 01-22-2024 ABSOLUTE BAS 0.0 10*3/uL Normal 0.0-0.2 [facility] Comment on above: Performed By: #### F EPRO ####Testing performed at [address] [place] [address] ABSOLUTE EOS 0.2 10*3/uL Normal 0.0-0.7 [facility] Comment on above: Performed By: #### F EPRO ####Testing performed at [address] [place] [address] ABSOLUTE NEUTROPHIL COUNT 3.8 10*3/uL Normal 1.4-6.5 [facility] Comment on above: Performed By: #### F EPRO ####Testing performed at [address] [place] [address] Basophils/100 WBC (Bld) 0.9 % Normal 0.0-2.0 [facility] Comment on above: Performed By: #### F EPRO ####Testing performed at [address] [place] [address] DTYPE AUTO DIFF Normal [facility] Comment on above: Performed By: #### F EPRO ####Testing performed at [address] [place] [address] Eosinophils/100 WBC (Bld) 3.2 % Normal 0.0-11.0 [facility] Comment on above: Performed By: #### F EPRO ####Testing performed at [address] [place] [address] Lymphocytes (Bld) [#/Vol] 1.1 10*3/uL Low 1.2-3.4 [facility] Comment on above: Performed By: #### F EPRO ####Testing performed at [address] [place] [address] Lymphocytes/100 WBC (Bld) 19.3 % Low 20.0-55.0 [facility] Comment on above: Performed By: #### F EPRO ####Testing performed at [address] [place] [address] Monocytes (Bld) [#/Vol] 0.5 10*3/uL Normal 0.0-0.7 [facility] Comment on above: Performed By: #### F EPRO ####Testing performed at [address] [address] Monocytes/100 WBC (Bld) 8.5 % Normal 0.0-10.0 [facility] Comment on above: Performed By: #### F EPRO ####Testing performed at [address] [address] Neutrophils/100 WBC (Bld) 68.1 % Normal 37.0-75.0 [facility] Comment on above: Performed By: #### F EPRO ####Testing performed at [address] [address] Erythrocyte distribution width (RBC) [Ratio] 14.1 % Normal 11.5-14.5 [facility] Comment on above: Performed By: #### F EPRO ####Testing performed at [address] [place] [address] Hematocrit (Bld) [Volume fraction] 31.8 % Low 36.0-48.0 [facility] Comment on above: Performed By: #### F EPRO ####Testing performed at [address] [place] [address] Hemoglobin (Bld) [Mass/Vol] 10.7 g/dL Low 12.0-16.0 [facility] Comment on above: Performed By: #### F EPRO ####Testing performed at [address] [address] MCH (RBC) [Entitic mass] 31.7 pg Normal 26.0-35.0 [facility] Comment on above: Performed By: #### F EPRO ####Testing performed at [address] [place] [address] MCHC (RBC) [Mass/Vol] 33.6 g/dL Normal 27.0-37.0 [facility] Comment on above: Performed By: #### F EPRO ####Testing performed at [address] [address] MCV (RBC) [Entitic vol] 94.6 fL Normal 80.0-100.0 [facility] Comment on above: Performed By: #### F EPRO ####Testing performed at [address] [address] Platelet mean volume (Bld) [Entitic vol] 7.0 fL Low 7.4-11.0 [facility] Comment on above: Performed By: #### F EPRO ####Testing performed at [address] [address] Platelets (Bld) [#/Vol] 407 10*3/uL High 130-400 [facility] Comment on above: Performed By: #### F EPRO ####Testing performed at [address] [address] RBC (Bld) [#/Vol] 3.36 10*6/uL Low 4.0-5.4 [facility] Comment on above: Performed By: #### F EPRO ####Testing performed at [address] [address] WBC (Bld) [#/Vol] 5.6 10*3/uL Normal 3.6-11.0 [facility] Comment on above: Performed By: #### F EPRO ####Testing performed at [address] [address] ESRon 01-22-2024 ESR (Bld) [Velocity] 71 mm/h High 0-30 [facility] Comment on above: Performed By: #### F EPRO ####Testing performed at [address] [place] [address] IRON PROFILEon 01-22-2024 IRON BINDING 164 UG/DL Low 250-450 [facility] Comment on above: Performed By: #### F EPRO ####Testing performed at [address] [place] [address] TRANSFERRIN SATURATION,CALCULATED 23 % Normal [facility] Comment on above: Performed By: #### F EPRO ####Testing performed at [address] [place] [address] Iron [Mass/Vol] 37 ug/dL Normal 37-170 [facility] Comment on above: Performed By: #### F EPRO ####Testing performed at [address] [place] [address] Laboratory - Chemistry and C hemistry - challengeon 01-22-2024 Iron [Mass/Vol] 37 ug/dL [facility] Iron binding capacity [Mass/Vol] 164 Low [facility] Iron saturation [Mass fraction] 23 % [facility] Anion gap [Moles/Vol] 3 mmol/L Low [facility] Calcium [Mass/Vol] 8.8 mg/dL [facility] Chloride [Moles/Vol] 101 mmol/L [facility] CO2 [Moles/Vol] 33 mmol/L [facility] Creatinine [Mass/Vol] 0.60 mg/dL Low [facility] CRP [Mass/Vol] 58.3 mg/L High 0 - 10 MG/L [facility] GFR/1.73 sq M.predicted among blacks MDRD (S/P/Bld) [Vol rate/Area] 123 mL/min/{1.73_m2} ml/min/1.73sq .m [facility] GFR/1.73 sq M.predicted among non-blacks MDRD (S/P/Bld) [Vol rate/Area] 102 mL/min/{1.73_m2} ml/min/1.73sq .m [facility] Glucose post fast [Mass/Vol] 88 mg/dL [facility] Potassium [Moles/Vol] 3.7 mmol/L [facility] Sodium [Moles/Vol] 137 mmol/L [facility] Urea nitrogen [Mass/Vol] 8 mg/dL [facility] Laboratory - Hematology and Cell countson 01-22-2024 ESR (Bld) [Velocity] 71 mm/h High [facility] Basophils/100 WBC (Bld) 0.9 % 0.0 - 2.0 % [facility] Differential cell count method Nom (Bld) AUTO DIFF % [facility] Eosinophils (Bld) [#/Vol] 0.2 10*3/uL 0.0 - 0.7 10*3/uL [facility] Eosinophils/100 WBC (Bld) 3.2 % 0.0 - 11.0 % [facility] Erythrocyte distribution width (RBC) [Ratio] 14.1 % 11.5 - 14.5 % [facility] Hematocrit (Bld) [Volume fraction] 31.8 % Low 36.0 - 48.0 % [facility] Hemoglobin (Bld) [Mass/Vol] 10.7 g/dL Low [facility] Lymphocytes (Bld) [#/Vol] 1.1 10*3/uL Low 1.2 - 3.4 10*3/uL [facility] Lymphocytes/100 WBC (Bld) 19.3 % Low 20.0 - 55.0 % [facility] MCH (RBC) [Entitic mass] 31.7 pg 26.0 - 35.0 PG [facility] MCHC (RBC) [Mass/Vol] 33.6 g/dL [facility] MCV (RBC) [Entitic vol] 94.6 fL [facility] Monocytes (Bld) [#/Vol] 0.5 10*3/uL 0.0 - 0.7 10*3/uL [facility] Monocytes/100 WBC (Bld) 8.5 % 0.0 - 10.0 % [facility] Neutrophils (Bld) [#/Vol] 3.8 10*3/uL 1.4 - 6.5 10*3/uL [facility] Neutrophils/100 WBC (Bld) 68.1 % 37.0 - 75.0 % [facility] Platelet mean volume (Bld) [Entitic vol] 7.0 fL Low [facility] Platelets (Bld) [#/Vol] 407 10*3/uL High 130 - 400 10*3/uL [facility] RBC (Bld) [#/Vol] 3.36 10*6/uL Low 4.0 - 5.4 10*6/uL [facility] WBC (Bld) [#/Vol] 5.6 10*3/uL 3.6 - 11.0 10*3/uL [facility] No Panel Informationon 01-21 Interpretation and review of laboratory results Abnormal [facility] Interpretation and review of laboratory results Abnormal [facility] GFR COMMENT Average GFR for 70+ years old = 75. [facility] Interpretation and review of laboratory results Abnormal [facility] ABSOLUTE BASOPHIL COUNT 0.0 10*3/uL 0.0 - 0.2 10*3/uL [facility] Interpretation and review of laboratory results Abnormal [facility] BMP FASTINGon 01-21-2024 Anion gap [Moles/Vol] 3 mmol/L Low 8-16 [facility] Calcium [Mass/Vol] 8.6 mg/dL Normal 8.4-10.2 [facility] Chloride [Moles/Vol] 102 mmol/L Normal 98-107 [facility] Comment on above: Result Comment: Plea se note: Triglyceride levels of 600mg/dL or higher may positively bias chloride results by approximately 2.1 mmol CO2 [Moles/Vol] 32 mmol/L High 22-30 [facility] Creatinine [Mass/Vol] 0.60 mg/dL Low 0.7-1.2 [facility] EST. GFR, 123 ml/min/1.73sq.m [facility] EST. GFR,Non 102 ml/min/1.73sq.m [facility] GFR Information Average GFR for 70+ years old = 75. Normal [facility] Comment on above: Result Comment: Beater Dumper aviva Kidney disease, GFR = <60. Kidney failure, GFR = <15. The GFR estimate is not adjusted for extreme body surface area or acute process, nor has it been validated for women or ethnic groups other than and . Glucose [Mass/Vol] 100 mg/dL Normal 70-100 [facility] Comment on above: Result Comment: NORMAL <100 mg/dL PREDIABETES 101-126 mg/dL DIABETES 126 mg/dL or higher Potassium [Moles/Vol] 3.6 mmol/L Normal 3.5-5.1 [facility] Sodium [Moles/Vol] 137 mmol/L Normal 137-145 [facility] Urea nitrogen [Mass/Vol] 8 mg/dL Normal 7-20 [facility] CBCon 01-21-2024 ABSOLUTE BAS 0.0 10*3/uL Normal 0.0-0.2 [facility] ABSOLUTE EOS 0.2 10*3/uL Normal 0.0-0.7 [facility] ABSOLUTE NEUTROPHIL COUNT 3.9 10*3/uL Normal 1.4-6.5 [facility] Basophils/100 WBC (Bld) 0.6 % Normal 0.0-2.0 [facility] DTYPE AUTO DIFF Normal [facility] Eosinophils/100 WBC (Bld) 3.6 % Normal 0.0-11.0 [facility] Lymphocytes (Bld) [#/Vol] 1.2 10*3/uL Normal 1.2-3.4 [facility] Lymphocytes/100 WBC (Bld) 19.7 % Low 20.0-55.0 [facility] Monocytes (Bld) [#/Vol] 0.6 10*3/uL Normal 0.0-0.7 [facility] Monocytes/100 WBC (Bld) 9.9 % Normal 0.0-10.0 [facility] Neutrophils/100 WBC (Bld) 66.2 % Normal 37.0-75.0 [facility] Erythrocyte distribution width (RBC) [Ratio] 14.1 % Normal 11.5-14.5 [facility] Hematocrit (Bld) [Volume fraction] 27.7 % Low 36.0-48.0 [facility] Hemoglobin (Bld) [Mass/Vol] 9.5 g/dL Low 12.0-16.0 [facility] MCH (RBC) [Entitic mass] 32.6 pg Normal 26.0-35.0 [facility] MCHC (RBC) [Mass/Vol] 34.3 g/dL Normal 27.0-37.0 [facility] MCV (RBC) [Entitic vol] 95.0 fL Normal 80.0-100.0 [facility] Platelet mean volume (Bld) [Entitic vol] 6.9 fL Low 7.4-11.0 [facility] Platelets (Bld) [#/Vol] 370 10*3/uL Normal 130-400 [facility] RBC (Bld) [#/Vol] 2.91 10*6/uL Low 4.0-5.4 [facility] WBC (Bld) [#/Vol] 5.9 10*3/uL Normal 3.6-11.0 [facility] Laboratory - Chemistry and C hemistry - challengeon 01-21-2024 Anion gap [Moles/Vol] 3 mmol/L Low [facility] Calcium [Mass/Vol] 8.6 mg/dL [facility] Chloride [Moles/Vol] 102 mmol/L [facility] CO2 [Moles/Vol] 32 mmol/L High [facility] Creatinine [Mass/Vol] 0.60 mg/dL Low [facility] GFR/1.73 sq M.predicted among blacks MDRD (S/P/Bld) [Vol rate/Area] 123 mL/min/{1.73_m2} ml/min/1.73sq .m [facility] GFR/1.73 sq M.predicted among non-blacks MDRD (S/P/Bld) [Vol rate/Area] 102 mL/min/{1.73_m2} ml/min/1.73sq .m [facility] Glucose post fast [Mass/Vol] 100 mg/dL [facility] Potassium [Moles/Vol] 3.6 mmol/L [facility] Sodium [Moles/Vol] 137 mmol/L [facility] Urea nitrogen [Mass/Vol] 8 mg/dL [facility] Laboratory - Hematology and Cell countson 01-21-2024 Basophils/100 WBC (Bld) 0.6 % 0.0 - 2.0 % [facility] Differential cell count method Nom (Bld) AUTO DIFF % [facility] Eosinophils (Bld) [#/Vol] 0.2 10*3/uL 0.0 - 0.7 10*3/uL [facility] Eosinophils/100 WBC (Bld) 3.6 % 0.0 - 11.0 % [facility] Erythrocyte distribution width (RBC) [Ratio] 14.1 % 11.5 - 14.5 % [facility] Hematocrit (Bld) [Volume fraction] 27.7 % Low 36.0 - 48.0 % [facility] Hemoglobin (Bld) [Mass/Vol] 9.5 g/dL Low [facility] Lymphocytes (Bld) [#/Vol] 1.2 10*3/uL 1.2 - 3.4 10*3/uL [facility] Lymphocytes/100 WBC (Bld) 19.7 % Low 20.0 - 55.0 % [facility] MCH (RBC) [Entitic mass] 32.6 pg 26.0 - 35.0 PG [facility] MCHC (RBC) [Mass/Vol] 34.3 g/dL [facility] MCV (RBC) [Entitic vol] 95.0 fL [facility] Monocytes (Bld) [#/Vol] 0.6 10*3/uL 0.0 - 0.7 10*3/uL [facility] Monocytes/100 WBC (Bld) 9.9 % 0.0 - 10.0 % [facility] Neutrophils (Bld) [#/Vol] 3.9 10*3/uL 1.4 - 6.5 10*3/uL [facility] Neutrophils/100 WBC (Bld) 66.2 % 37.0 - 75.0 % [facility] Platelet mean volume (Bld) [Entitic vol] 6.9 fL Low [facility] Platelets (Bld) [#/Vol] 370 10*3/uL 130 - 400 10*3/uL [facility] RBC (Bld) [#/Vol] 2.91 10*6/uL Low 4.0 - 5.4 10*6/uL [facility] WBC (Bld) [#/Vol] 5.9 10*3/uL 3.6 - 11.0 10*3/uL [facility] Laboratory - Microbiology an d Antimicrobial susceptibilityon 01-21-2024 MRSA isol Org specific cx Ql (Nose) Negative NEGATIVE [facility] Laboratory - Urinalysison Bacteria LM.HPF (Urine sed) [#/Area] TRACE Abnormal NEGATIVE [facility] Casts LM.LPF (Urine sed) [#/Area] NONE NONE /LPF [facility] Crystals LM Nom (Urine sed) NONE NONE [facility] Epithelial cells LM Ql (Urine sed) 1 TO 5 /HPF [facility] Mucus Ql (Urine sed) Negative NEGATIVE [facility] RBC LM.HPF (Urine sed) [#/Area] 1 TO 5 NEGATIVE /HPF [facility] Urine sediment comments LM Girish (Urine sed) REFLEX CULTURE PER ESTABLISHED CRITERIA. [facility] WBC LM.HPF (Urine sed) [#/Area] Negative NEGATIVE /HPF [facility] MRSA SCREENon 01-21-2024 MRSA DNA SMILEY+probe Ql (Unsp spec) Negative Normal NEGATIVE [facility] STAPH AUREUS SCREEN Negative Normal NEGATIVE [facility] Comment on above: Result Comment: TEST ING PERFORMED BY PCR No Panel Informationon 01-20 Interpretation and review of laboratory results Abnormal [facility] STAPHYOCOCCUS AUREUS BY PCR Negative NEGATIVE [facility] GFR COMMENT Average GFR for 70+ years old = 75. [facility] Interpretation and review of laboratory results Abnormal [facility] ABSOLUTE BASOPHIL COUNT 0.0 10*3/uL 0.0 - 0.2 10*3/uL [facility] Interpretation and review of laboratory results Abnormal [facility] URINE CULTUREon 01-21-2024 Bacteria identified Cx Nom (U) SPECIMEN DESCRIPTION URINE - OTHER UA DIPSTICK LEUKOCYTE POSITIVE * Result Note: NITRITE NEGATIVE * CULTURE NO PATHOGENS ISOLATED * Result Note: Testing performed at [place] [address] * REPORT STATUS 01/23/2024 * Result Note: FINAL * Normal [facility] Comment on above: Performed By: #### A URNC #### Testing performed at [address] [id number] Testing performed at [address] [address] URINE MICROSCOPICon 01-21-20 24 BACTERIA TRACE Abnormal NEGATIVE [facility] CASTS NONE Normal NONE [facility] CRYSTAL NONE Normal NONE [facility] Epithelial cells LM Ql (Urine sed) 1 TO 5 Normal [facility] Mucus Ql (Urine sed) Negative Normal NEGATIVE [facility] URINE COMMENT REFLEX CULTURE PER ESTABLISHED CRITERIA. Normal [facility] URINE RBC'S 1 TO 5 Normal NEGATIVE [facility] URINE WBC'S Negative Normal NEGATIVE [facility] 25 0H VITAMIN D LEVELon 25 0H VITAMIN D LEVEL 16.9 NG/ML Normal [facility] Comment on above: Result Comment: DEFICIENT <20 NG/ML INSUFFICIENT 20-<30 NG/ML SUFFICIENT 30-100 NG/ML POTENTIAL TOXICITY >100 NG/ML BMP FASTINGon 01-20-2024 Anion gap [Moles/Vol] 2 mmol/L Low 8-16 [facility] Comment on above: Performed By: #### A CBC, FEPRO ####Testing performed at [address] [address] Calcium [Mass/Vol] 8.3 mg/dL Low 8.4-10.2 [facility] Comment on above: Performed By: #### A CBC, FEPRO ####Testing performed at [address] [address] Chloride [Moles/Vol] 103 mmol/L Normal 98-107 [facility] Comment on above: Result Comment: Plea se note: Triglyceride levels of 600mg/dL or higher may positively bias chloride results by approximately 2.1 mmol Performed By: #### A CBC, FEPRO ####Testing performed at [address] [address] CO2 [Moles/Vol] 31 mmol/L High 22-30 [facility] Comment on above: Performed By: #### A CBC, FEPRO ####Testing performed at [address] [address] Creatinine [Mass/Vol] 0.60 mg/dL Low 0.7-1.2 [facility] Comment on above: Performed By: #### A CBC, FEPRO ####Testing performed at [address] [address] EST. GFR, 123 ml/min/1.73sq.m [facility] Comment on above: Performed By: #### A CBC, FEPRO ####Testing performed at [address] [address] EST. GFR,Non 102 ml/min/1.73sq.m [facility] Comment on above: Performed By: #### A CBC, FEPRO ####Testing performed at [place] [id number] GFR Information Average GFR for 70+ years old = 75. [facility] Comment on above: Result Comment: Beater Dumper aviva Kidney disease, GFR = <60. Kidney failure, GFR = <15. The GFR estimate is not adjusted for extreme body surface area or acute process, nor has it been validated for women or ethnic groups other than and . Performed By: #### A CBC, FEPRO ####Testing performed at [place] [id number] Glucose [Mass/Vol] 91 mg/dL Normal 70-100 [facility] Comment on above: Result Comment: NORMAL <100 mg/dL PREDIABETES 101-126 mg/dL DIABETES 126 mg/dL or higher Performed By: #### A CBC, FEPRO ####Testing performed at [address] [address] Potassium [Moles/Vol] 3.8 mmol/L Normal 3.5-5.1 [facility] Comment on above: Performed By: #### A CBC, FEPRO ####Testing performed at [place] [id number] Sodium [Moles/Vol] 136 mmol/L Low 137-145 [facility] Comment on above: Performed By: #### A CBC, FEPRO ####Testing performed at [facility] [address] [address] Urea nitrogen [Mass/Vol] 9 mg/dL Normal 7-20 [facility] Comment on above: Performed By: #### A CBC, FEPRO ####Testing performed at [address] [address] CBCon 01-20-2024 ABSOLUTE BAS 0.0 10*3/uL Normal 0.0-0.2 [facility] Comment on above: Performed By: #### A CBC, FEPRO ####Testing performed at [address] [address] ABSOLUTE EOS 0.2 10*3/uL Normal 0.0-0.7 [facility] Comment on above: Performed By: #### A CBC, FEPRO ####Testing performed at [address] [address] ABSOLUTE NEUTROPHIL COUNT 4.1 10*3/uL Normal 1.4-6.5 [facility] Comment on above: Performed By: #### A CBC, FEPRO ####Testing performed at [address] [address] Basophils/100 WBC (Bld) 0.8 % Normal 0.0-2.0 [facility] Comment on above: Performed By: #### A CBC, FEPRO ####Testing performed at [address] [address] DTYPE AUTO DIFF Normal [facility] Comment on above: Performed By: #### A CBC, FEPRO ####Testing performed at [address] [address] Eosinophils/100 WBC (Bld) 3.0 % Normal 0.0-11.0 [facility] Comment on above: Performed By: #### A CBC, FEPRO ####Testing performed at [address] [address] Lymphocytes (Bld) [#/Vol] 1.2 10*3/uL Normal 1.2-3.4 [facility] Comment on above: Performed By: #### A CBC, FEPRO ####Testing performed at [address] [address] Lymphocytes/100 WBC (Bld) 19.6 % Low 20.0-55.0 [facility] Comment on above: Performed By: #### A CBC, FEPRO ####Testing performed at [address] [address] Monocytes (Bld) [#/Vol] 0.7 10*3/uL Normal 0.0-0.7 [facility] Comment on above: Performed By: #### A CBC, FEPRO ####Testing performed at [address] [address] Monocytes/100 WBC (Bld) 10.9 % High 0.0-10.0 [facility] Comment on above: Performed By: #### A CBC, FEPRO ####Testing performed at [address] [address] Neutrophils/100 WBC (Bld) 65.7 % Normal 37.0-75.0 [facility] Comment on above: Performed By: #### A CBC, FEPRO ####Testing performed at [address] [address] Erythrocyte distribution width (RBC) [Ratio] 14.0 % Normal 11.5-14.5 [facility] Comment on above: Performed By: #### A CBC, FEPRO ####Testing performed at [address] [address] Hematocrit (Bld) [Volume fraction] 27.6 % Low 36.0-48.0 [facility] Comment on above: Performed By: #### A CBC, FEPRO ####Testing performed at [address] [address] Hemoglobin (Bld) [Mass/Vol] 9.4 g/dL Low 12.0-16.0 [facility] Comment on above: Performed By: #### A CBC, FEPRO ####Testing performed at [address] [address] MCH (RBC) [Entitic mass] 32.3 pg Normal 26.0-35.0 [facility] Comment on above: Performed By: #### A CBC, FEPRO ####Testing performed at [address] [address] MCHC (RBC) [Mass/Vol] 34.0 g/dL Normal 27.0-37.0 [facility] Comment on above: Performed By: #### A CBC, FEPRO ####Testing performed at [address] [address] MCV (RBC) [Entitic vol] 95.0 fL Normal 80.0-100.0 [facility] Comment on above: Performed By: #### A CBC, FEPRO ####Testing performed at [address] [address] Platelet mean volume (Bld) [Entitic vol] 6.9 fL Low 7.4-11.0 [facility] Comment on above: Performed By: #### A CBC, FEPRO ####Testing performed at [address] [address] Platelets (Bld) [#/Vol] 357 10*3/uL Normal 130-400 [facility] Comment on above: Performed By: #### A CBC, FEPRO ####Testing performed at [address] [address] RBC (Bld) [#/Vol] 2.90 10*6/uL Low 4.0-5.4 [facility] Comment on above: Performed By: #### A CBC, FEPRO ####Testing performed at [address] [address] WBC (Bld) [#/Vol] 6.3 10*3/uL Normal 3.6-11.0 [facility] Comment on above: Performed By: #### A CBC, FEPRO ####Testing performed at [facility] [place] [address] IRON PROFILEon 01-20-2024 IRON BINDING 144 UG/DL Low 250-450 [facility] Comment on above: Performed By: #### A CBC #### Testing performed at [place] [address] [place] [address] TRANSFERRIN SATURATION,CALCULATED 20 % Normal [facility] Comment on above: Performed By: #### A CBC #### Testing performed at [place] [address] [place] [address] Iron [Mass/Vol] 29 ug/dL Low 37-170 [facility] Comment on above: Performed By: #### A CBC #### Testing performed at [place] [address] [place] [address] Laboratory - Chemistry and C hemistry - challengeon 01-20-2024 25-hydroxyvitamin D [Mass/Vol] 16.9 NG/ML [facility] Parathyrin.intact [Mass/Vol] 40.2 pg/mL 14.5 - 75.2 pg/mL [facility] Iron [Mass/Vol] 29 ug/dL Low [facility] Iron binding capacity [Mass/Vol] 144 Low [facility] Anion gap [Moles/Vol] 2 mmol/L Low [facility] Calcium [Mass/Vol] 8.3 mg/dL Low [facility] Chloride [Moles/Vol] 103 mmol/L [facility] CO2 [Moles/Vol] 31 mmol/L High [facility] Creatinine [Mass/Vol] 0.60 mg/dL Low [facility] GFR/1.73 sq M.predicted among blacks MDRD (S/P/Bld) [Vol rate/Area] 123 mL/min/{1.73_m2} ml/min/1.73sq .m [facility] GFR/1.73 sq M.predicted among non-blacks MDRD (S/P/Bld) [Vol rate/Area] 102 mL/min/{1.73_m2} ml/min/1.73sq .m [facility] Glucose post fast [Mass/Vol] 91 mg/dL [facility] Potassium [Moles/Vol] 3.8 mmol/L [facility] Sodium [Moles/Vol] 136 mmol/L Low [facility] Urea nitrogen [Mass/Vol] 9 mg/dL [facility] Laboratory - Hematology and Cell countson 01-20-2024 Basophils/100 WBC (Bld) 0.8 % 0.0 - 2.0 % [facility] Differential cell count method Nom (Bld) AUTO DIFF % [facility] Eosinophils (Bld) [#/Vol] 0.2 10*3/uL 0.0 - 0.7 10*3/uL [facility] Eosinophils/100 WBC (Bld) 3.0 % 0.0 - 11.0 % [facility] Erythrocyte distribution width (RBC) [Ratio] 14.0 % 11.5 - 14.5 % [facility] Hematocrit (Bld) [Volume fraction] 27.6 % Low 36.0 - 48.0 % [facility] Hemoglobin (Bld) [Mass/Vol] 9.4 g/dL Low [facility] Lymphocytes (Bld) [#/Vol] 1.2 10*3/uL 1.2 - 3.4 10*3/uL [facility] Lymphocytes/100 WBC (Bld) 19.6 % Low 20.0 - 55.0 % [facility] MCH (RBC) [Entitic mass] 32.3 pg 26.0 - 35.0 PG [facility] MCHC (RBC) [Mass/Vol] 34.0 g/dL [facility] MCV (RBC) [Entitic vol] 95.0 fL [facility] Monocytes (Bld) [#/Vol] 0.7 10*3/uL 0.0 - 0.7 10*3/uL [facility] Monocytes/100 WBC (Bld) 10.9 % High 0.0 - 10.0 % [facility] Neutrophils (Bld) [#/Vol] 4.1 10*3/uL 1.4 - 6.5 10*3/uL [facility] Neutrophils/100 WBC (Bld) 65.7 % 37.0 - 75.0 % [facility] Platelet mean volume (Bld) [Entitic vol] 6.9 fL Low [facility] Platelets (Bld) [#/Vol] 357 10*3/uL 130 - 400 10*3/uL [facility] RBC (Bld) [#/Vol] 2.90 10*6/uL Low 4.0 - 5.4 10*6/uL [facility] WBC (Bld) [#/Vol] 6.3 10*3/uL 3.6 - 11.0 10*3/uL [facility] No Panel Informationon 01-19 [facility] Interpretation and review of laboratory results Abnormal [facility] Transferrin Saturation (%) 20 % [facility] GFR COMMENT Average GFR for 70+ years old = 75. [facility] Interpretation and review of laboratory results Abnormal [facility] ABSOLUTE BASOPHIL COUNT 0.0 10*3/uL 0.0 - 0.2 10*3/uL [facility] Interpretation and review of laboratory results Abnormal [facility] PTH,INTACTon 01-20-2024 PTH,INTACT 40.2 pg/mL Normal 14.5-75.2 [facility] Comment on above: Performed By: #### A CBC #### [place] [address] Portable XR Chest Viewson RADIOLOGY RADIOLOGY [facility] Radiology Study observation (narrative) [facility] Portable XR Chest ViewsOrder ed By: Katina Carlisle on 01-20-2024 [facility] XR CHEST 1 VIEW PORTABLEon 0 01-20-2024 [...] markings which may well be chronic. Normal [facility] BASIC METABOLIC PANELon 07-0 Anion gap [Moles/Vol] 3 mmol/L MMOL/L [facility] Calcium [Mass/Vol] 8.4 mg/dL [facility] Chloride [Moles/Vol] 105 mmol/L [facility] Comment on above: Please note: Triglyc eride levels of 600mg/dL or higher may positively bias chloride results by approximately 2.1 mmol CO2 [Moles/Vol] 27 mmol/L [facility] Creatinine [Mass/Vol] 0.60 mg/dL Low [facility] GFR COMMENT Average GFR for 70+ years old = 75. [facility] Comment on above: Chronic Kidney disea se, GFR = <60. Kidney failure, GFR = <15. The GFR estimate is not adjusted for extreme body surface area or acute process, nor has it been validated for women or ethnic groups other than and . GFR/1.73 sq M.predicted among blacks MDRD (S/P/Bld) [Vol rate/Area] 123 mL/min/{1.73_m2} ml/min/1.73sq .m [facility] GFR/1.73 sq M.predicted among non-blacks MDRD (S/P/Bld) [Vol rate/Area] 102 mL/min/{1.73_m2} ml/min/1.73sq .m [facility] Glucose post fast [Mass/Vol] 119 mg/dL High [facility] Comment on above: NORMAL <100 mg/dL PREDIABETES 101-126 mg/dL DIABETES 126 mg/dL or higher Interpretation and review of laboratory results Abnormal [facility] Potassium [Moles/Vol] 3.5 mmol/L [facility] Sodium [Moles/Vol] 135 mmol/L Low [facility] Urea nitrogen [Mass/Vol] 10 mg/dL [facility] BMP FASTINGon 01-18-2024 Anion gap [Moles/Vol] 3 mmol/L Normal [facility] Comment on above: Performed By: #### U GRUPO, UMAC #### Testing performed at [address] [address] Calcium [Mass/Vol] 8.4 mg/dL Normal 8.4-10.2 [facility] Comment on above: Performed By: #### U GRUPO, UMAC #### Testing performed at [address] [address] Chloride [Moles/Vol] 105 mmol/L Normal 98-107 [facility] Comment on above: Result Comment: Shonda matthews note: Triglyceride levels of 600mg/dL or higher may positively bias chloride results by approximately 2.1 mmol Performed By: #### U GRUPO, UMAC #### Testing performed at [address] [address] CO2 [Moles/Vol] 27 mmol/L Normal 22-30 [facility] Comment on above: Performed By: #### U GRUPO, UMAC #### Testing performed at [address] [address] Creatinine [Mass/Vol] 0.60 mg/dL Low 0.70-1.20 [facility] Comment on above: Performed By: #### U GRUPO, UMAC #### Testing performed at [address] [address] EST. GFR, 123 ml/min/1.73sq.m [facility] Comment on above: Performed By: #### U GRUPO, UMAC #### Testing performed at [address] [address] EST. GFR,Non 102 ml/min/1.73sq.m [facility] Comment on above: Performed By: #### U GRUPO, UMAC #### Testing performed at [address] [address] GFR Information Average GFR for 70+ years old = 75. Normal [facility] Comment on above: Result Comment: Beater Dumper aviva Kidney disease, GFR = <60. Kidney failure, GFR = <15. The GFR estimate is not adjusted for extreme body surface area or acute process, nor has it been validated for women or ethnic groups other than and . Performed By: #### U GRUPO, UMAC #### Testing performed at [address] [address] Glucose [Mass/Vol] 119 mg/dL High 70-100 [facility] Comment on above: Result Comment: NORMAL <100 mg/dL PREDIABETES 101-126 mg/dL DIABETES 126 mg/dL or higher Performed By: #### U GRUPO, UMAC #### Testing performed at [address] [address] Potassium [Moles/Vol] 3.5 mmol/L Normal 3.5-5.1 [facility] Comment on above: Performed By: #### U GRUPO, UMAC #### Testing performed at [address] [address] Sodium [Moles/Vol] 135 mmol/L Low 137-145 [facility] Comment on above: Performed By: #### U GRUPO, UMAC #### Testing performed at [address] [address] Urea nitrogen [Mass/Vol] 10 mg/dL Normal 7-20 [facility] Comment on above: Performed By: #### U GRUPO, UMAC #### Testing performed at [address] [address] CBCon 01-17-2024 ABSOLUTE BAS 0.0 10*3/uL Normal 0.0-0.2 [facility] Comment on above: Performed By: #### U GRUPO, UMAC #### Testing performed at [address] [address] ABSOLUTE EOS 0.1 10*3/uL Normal 0.0-0.7 [facility] Comment on above: Performed By: #### U GRUPO, UMAC #### Testing performed at [address] [address] ABSOLUTE NEUTROPHIL COUNT 4.7 10*3/uL Normal 1.4-6.5 [facility] Comment on above: Performed By: #### U GRUPO, UMAC #### Testing performed at [address] [address] Basophils/100 WBC (Bld) 0.6 % Normal 0.0-2.0 [facility] Comment on above: Performed By: #### U GRUPO, UMAC #### Testing performed at [address] [address] DTYPE AUTO DIFF Normal [facility] Comment on above: Performed By: #### U GRUPO, UMAC #### Testing performed at [address] [address] Eosinophils/100 WBC (Bld) 1.9 % Normal 0.0-11.0 [facility] Comment on above: Performed By: #### U GRUPO, UMAC #### Testing performed at [address] [address] Erythrocyte distribution width (RBC) [Ratio] 13.9 % Normal 11.5-14.5 [facility] Comment on above: Performed By: #### U GRUPO, UMAC #### Testing performed at [address] [address] Hematocrit (Bld) [Volume fraction] 29.2 % Low 36.0-48.0 [facility] Comment on above: Performed By: #### U GRUPO, UMAC #### Testing performed at [address] [address] Hemoglobin (Bld) [Mass/Vol] 9.8 g/dL Low 12.0-16.0 [facility] Comment on above: Performed By: #### U GRUPO, UMAC #### Testing performed at [address] [address] Lymphocytes (Bld) [#/Vol] 1.1 10*3/uL Low 1.2-3.4 [facility] Comment on above: Performed By: #### U GRUPO, UMAC #### Testing performed at [address] [address] Lymphocytes/100 WBC (Bld) 16.5 % Low 20.0-55.0 [facility] Comment on above: Performed By: #### U GRUPO, UMAC #### Testing performed at [address] [address] MCH (RBC) [Entitic mass] 31.8 pg Normal 26.0-35.0 [facility] Comment on above: Performed By: #### U GRUPO, UMAC #### Testing performed at [address] [address] MCHC (RBC) [Mass/Vol] 33.6 g/dL Normal 27.0-37.0 [facility] Comment on above: Performed By: #### U GRUPO, UMAC #### Testing performed at [address] [address] MCV (RBC) [Entitic vol] 94.6 fL Normal 80.0-100.0 [facility] Comment on above: Performed By: #### U GRUPO, UMAC #### Testing performed at [address] [address] Monocytes (Bld) [#/Vol] 0.8 10*3/uL High 0.0-0.7 [facility] Comment on above: Performed By: #### U GRUPO, UMAC #### Testing performed at [address] [address] Monocytes/100 WBC (Bld) 11.9 % High 0.0-10.0 [facility] Comment on above: Performed By: #### U GRUPO, UMAC #### Testing performed at [address] [address] Neutrophils/100 WBC (Bld) 69.1 % Normal 37.0-75.0 [facility] Comment on above: Performed By: #### U GRUPO, UMAC #### Testing performed at [address] [address] Platelet mean volume (Bld) [Entitic vol] 7.9 fL Normal 7.4-11.0 [facility] Comment on above: Performed By: #### U GRUPO, UMAC #### Testing performed at [address] [address] Platelets (Bld) [#/Vol] 279 10*3/uL Normal 130-400 [facility] Comment on above: Performed By: #### U GRUPO, UMAC #### Testing performed at [address] [address] RBC (Bld) [#/Vol] 3.09 10*6/uL Low 4.0-5.4 [facility] Comment on above: Performed By: #### U GRUPO, UMAC #### Testing performed at [address] [address] WBC (Bld) [#/Vol] 6.8 10*3/uL Normal 3.6-11.0 [facility] Comment on above: Performed By: #### U GRUPO, UMAC #### Testing performed at [address] [address] CBC, EDIF, PLATELETon 2023 ABSOLUTE BASOPHIL COUNT 0.0 10*3/uL 0.0 - 0.2 10*3/uL [facility] Basophils/100 WBC (Bld) 0.6 % 0.0 - 2.0 % [facility] Differential cell count method Nom (Bld) AUTO DIFF % [facility] Eosinophils (Bld) [#/Vol] 0.1 10*3/uL 0.0 - 0.7 10*3/uL [facility] Eosinophils/100 WBC (Bld) 1.9 % 0.0 - 11.0 % [facility] Erythrocyte distribution width (RBC) [Ratio] 13.9 % 11.5 - 14.5 % [facility] Hematocrit (Bld) [Volume fraction] 29.2 % Low 36.0 - 48.0 % [facility] Hemoglobin (Bld) [Mass/Vol] 9.8 g/dL Low [facility] Interpretation and review of laboratory results Abnormal [facility] Lymphocytes (Bld) [#/Vol] 1.1 10*3/uL Low 1.2 - 3.4 10*3/uL [facility] Lymphocytes/100 WBC (Bld) 16.5 % Low 20.0 - 55.0 % [facility] MCH (RBC) [Entitic mass] 31.8 pg 26.0 - 35.0 PG [facility] MCHC (RBC) [Mass/Vol] 33.6 g/dL [facility] MCV (RBC) [Entitic vol] 94.6 fL [facility] Monocytes (Bld) [#/Vol] 0.8 10*3/uL High 0.0 - 0.7 10*3/uL [facility] Monocytes/100 WBC (Bld) 11.9 % High 0.0 - 10.0 % [facility] Neutrophils (Bld) [#/Vol] 4.7 10*3/uL 1.4 - 6.5 10*3/uL [facility] Neutrophils/100 WBC (Bld) 69.1 % 37.0 - 75.0 % [facility] Platelet mean volume (Bld) [Entitic vol] 7.9 fL [facility] Platelets (Bld) [#/Vol] 279 10*3/uL 130 - 400 10*3/uL [facility] RBC (Bld) [#/Vol] 3.09 10*6/uL Low 4.0 - 5.4 10*6/uL [facility] WBC (Bld) [#/Vol] 6.8 10*3/uL 3.6 - 11.0 10*3/uL [facility] RENAL FUNCTION PANELon 01-16 Albumin [Mass/Vol] 2.6 G/dl Low 3.5 - 5.0 G/dl [facility] Calcium [Mass/Vol] 8.2 mg/dL Low [facility] Chloride [Moles/Vol] 105 mmol/L [facility] Comment on above: Please note: Triglyc eride levels of 600mg/dL or higher may positively bias chloride results by approximately 2.1 mmol CO2 [Moles/Vol] 29 mmol/L [facility] Creatinine [Mass/Vol] 0.51 mg/dL Low [facility] GFR COMMENT Average GFR for 70+ years old = 75. [facility] Comment on above: Chronic Kidney disea se, GFR = <60. Kidney failure, GFR = <15. The GFR estimate is not adjusted for extreme body surface area or acute process, nor has it been validated for women or ethnic groups other than and . GFR/1.73 sq M.predicted among blacks MDRD (S/P/Bld) [Vol rate/Area] 149 mL/min/{1.73_m2} ml/min/1.73sq .m [facility] GFR/1.73 sq M.predicted among non-blacks MDRD (S/P/Bld) [Vol rate/Area] 123 mL/min/{1.73_m2} ml/min/1.73sq .m [facility] Glucose post fast [Mass/Vol] 106 mg/dL High [facility] Comment on above: NORMAL <100 mg/dL PREDIABETES 101-126 mg/dL DIABETES 126 mg/dL or higher Interpretation and review of laboratory results Abnormal [facility] Phosphate [Mass/Vol] 2.6 mg/dL [facility] Potassium [Moles/Vol] 3.3 mmol/L Low [facility] Sodium [Moles/Vol] 135 mmol/L Low [facility] Urea nitrogen [Mass/Vol] 10 mg/dL [facility] RENAL PANEL,FASTINGon 2023 ALBUMIN 2.6 G/dl Low 3.5-5.0 [facility] Comment on above: Performed By: #### U GRUPO, UMAC #### Testing performed at [address] [address] Calcium [Mass/Vol] 8.2 mg/dL Low 8.4-10.2 [facility] Comment on above: Performed By: #### U GRUPO, UMAC #### Testing performed at [address] [address] Chloride [Moles/Vol] 105 mmol/L Normal 98-107 [facility] Comment on above: Result Comment: Shonda matthews note: Triglyceride levels of 600mg/dL or higher may positively bias chloride results by approximately 2.1 mmol Performed By: #### U GRUPO, UMAC #### Testing performed at [address] [address] CO2 [Moles/Vol] 29 mmol/L Normal 22-30 [facility] Comment on above: Performed By: #### U GRUPO, UMAC #### Testing performed at [address] [address] Creatinine [Mass/Vol] 0.51 mg/dL Low 0.70-1.20 [facility] Comment on above: Performed By: #### U GRUPO, UMAC #### Testing performed at [address] [address] EST. GFR, 149 ml/min/1.73sq.m [facility] Comment on above: Performed By: #### U GRUPO, UMAC #### Testing performed at [address] [address] EST. GFR,Non 123 ml/min/1.73sq.m [facility] Comment on above: Performed By: #### U GRUPO, UMAC #### Testing performed at [address] [address] GFR Information Average GFR for 70+ years old = 75. Normal [facility] Comment on above: Result Comment: Beater Dumper aviva Kidney disease, GFR = <60. Kidney failure, GFR = <15. The GFR estimate is not adjusted for extreme body surface area or acute process, nor has it been validated for women or ethnic groups other than and . Performed By: #### U GRUPO, UMAC #### Testing performed at [address] [address] Glucose [Mass/Vol] 106 mg/dL High 70-100 [facility] Comment on above: Result Comment: NORMAL <100 mg/dL PREDIABETES 101-126 mg/dL DIABETES 126 mg/dL or higher Performed By: #### U GRUPO, UMAC #### Testing performed at [address] [address] PHOSPHOROUS 2.6 MG/DL Normal 2.5-4.5 [facility] Comment on above: Performed By: #### U GRUPO, UMAC #### Testing performed at [address] [address] Potassium [Moles/Vol] 3.3 mmol/L Low 3.5-5.1 [facility] Comment on above: Performed By: #### U GRUPO, UMAC #### Testing performed at [address] [address] Sodium [Moles/Vol] 135 mmol/L Low 137-145 [facility] Comment on above: Performed By: #### U GRUPO, UMAC #### Testing performed at [address] [address] Urea nitrogen [Mass/Vol] 10 mg/dL Normal 7-20 [facility] Comment on above: Performed By: #### U [facility] #### Testing performed at [address] [address] SURGICAL PATHOLOGY REQUESTon 01-17-2024 Pathology report final diagnosis Narrative Surgical Final Report Patient Name: CUATE GOODMAN Med. Rec. #: [id number] Physician: ERIK HEREDIA Specimen(s) Received Left femoral head Clinical / Pre-Operative Diagnosis Osteoarthritis of left hip unspecified osteoarthritis type Post-Operative Diagnosis Not provided Surgical Procedure Arthroplasty hip total latera approach Diagnosis: Left femoral head, Excision: -Consistent with degenerative joint disease Electronically Signed lks/01/13/2024 Khoa Vieyar DO Gross Description: The specimen is received in formalin, and labeled left femoral head, Cuate Goodman and date of 1940. The specimen consists of a femoral head and neck measuring 5.5 x 5 x 5 cm with articular cartilage degeneration. Sectioning reveals unremarkable bone. Roof Tiler sections are submitted in one cassette and placed in decalcification solution prior to processing. Billing Fee Code(s) A: 49109, [address]03 [facility] XR FOOT RIGHT 2 VIEWSon XR FOOT [...] and hallux valgus with osseous demineralization. Normal [facility] XR Foot - right 2 Viewson IMPRESSION: [...] DJD and hallux valgus with osseous demineralization. [facility] Radiology Study observation (narrative) [facility] XR Foot - right 2 ViewsOrder ed By: Miguel Marin on 01-17-2024 [facility] Work Phone: CBCon 01-14-2024 ABSOLUTE BAS 0.0 10*3/uL Normal 0.0-0.2 [facility] Comment on above: Performed By: #### U GRUPO, UMAC #### Testing performed at [facility] [address] [place] [address] ABSOLUTE EOS 0.1 10*3/uL Normal 0.0-0.7 [facility] Comment on above: Performed By: #### U GRUPO, UMAC #### Testing performed at [address] [place] [address] ABSOLUTE NEUTROPHIL COUNT 7.6 10*3/uL High 1.4-6.5 [facility] Comment on above: Performed By: #### U GRUPO, UMAC #### Testing performed at [address] [place] [address] Basophils/100 WBC (Bld) 0.3 % Normal 0.0-2.0 [facility] Comment on above: Performed By: #### U GRUPO, UMAC #### Testing performed at [address] [place] [address] DTYPE AUTO DIFF Normal [facility] Comment on above: Performed By: #### U GRUPO, UMAC #### Testing performed at [address] [address] Eosinophils/100 WBC (Bld) 0.5 % Normal 0.0-11.0 [facility] Comment on above: Performed By: #### U GRUPO, UMAC #### Testing performed at [address] [address] Lymphocytes (Bld) [#/Vol] 1.1 10*3/uL Low 1.2-3.4 [facility] Comment on above: Performed By: #### U GRUPO, UMAC #### Testing performed at [address] [place] [address] Lymphocytes/100 WBC (Bld) 11.0 % Low 20.0-55.0 [facility] Comment on above: Performed By: #### U GRUPO, UMAC #### Testing performed at [address] [place] [address] Monocytes (Bld) [#/Vol] 1.1 10*3/uL High 0.0-0.7 [facility] Comment on above: Performed By: #### U GRUPO, UMAC #### Testing performed at [address] [place] [address] Monocytes/100 WBC (Bld) 10.8 % High 0.0-10.0 [facility] Comment on above: Performed By: #### U GRUPO, UMAC #### Testing performed at [address] [address] Neutrophils/100 WBC (Bld) 77.4 % High 37.0-75.0 [facility] Comment on above: Performed By: #### U GRUPO, UMAC #### Testing performed at [address] [address] Erythrocyte distribution width (RBC) [Ratio] 14.6 % High 11.5-14.5 [facility] Comment on above: Performed By: #### U GRUPO, UMAC #### Testing performed at [address] [address] Hematocrit (Bld) [Volume fraction] 32.1 % Low 36.0-48.0 [facility] Comment on above: Performed By: #### U GRUPO, UMAC #### Testing performed at [address] [address] Hemoglobin (Bld) [Mass/Vol] 10.5 g/dL Low 12.0-16.0 [facility] Comment on above: Performed By: #### U GRUPO, UMAC #### Testing performed at [address] [address] MCH (RBC) [Entitic mass] 31.4 pg Normal 26.0-35.0 [facility] Comment on above: Performed By: #### U GRUPO, UMAC #### Testing performed at [address] [address] MCHC (RBC) [Mass/Vol] 32.8 g/dL Normal 27.0-37.0 [facility] Comment on above: Performed By: #### U GRUPO, UMAC #### Testing performed at [address] [address] MCV (RBC) [Entitic vol] 96.0 fL Normal 80.0-100.0 [facility] Comment on above: Performed By: #### U GRUPO, UMAC #### Testing performed at [address] [address] Platelet mean volume (Bld) [Entitic vol] 8.4 fL Normal 7.4-11.0 [facility] Comment on above: Performed By: #### U GRUPO, UMAC #### Testing performed at [address] [address] Platelets (Bld) [#/Vol] 226 10*3/uL Normal 130-400 [facility] Comment on above: Performed By: #### U GRUPO, UMAC #### Testing performed at [address] [address] RBC (Bld) [#/Vol] 3.35 10*6/uL Low 4.0-5.4 [facility] Comment on above: Performed By: #### U GRUPO, UMAC #### Testing performed at [address] [address] WBC (Bld) [#/Vol] 9.9 10*3/uL Normal 3.6-11.0 [facility] Comment on above: Performed By: #### U GRUPO, UMAC #### Testing performed at [address] [address] CBC, EDIF, PLATELETon 2023 ABSOLUTE BASOPHIL COUNT 0.0 10*3/uL 0.0 - 0.2 10*3/uL [facility] Basophils/100 WBC (Bld) 0.3 % 0.0 - 2.0 % [facility] Differential cell count method Nom (Bld) AUTO DIFF % [facility] Eosinophils (Bld) [#/Vol] 0.1 10*3/uL 0.0 - 0.7 10*3/uL [facility] Eosinophils/100 WBC (Bld) 0.5 % 0.0 - 11.0 % [facility] Erythrocyte distribution width (RBC) [Ratio] 14.6 % High 11.5 - 14.5 % [facility] Hematocrit (Bld) [Volume fraction] 32.1 % Low 36.0 - 48.0 % [facility] Hemoglobin (Bld) [Mass/Vol] 10.5 g/dL Low [facility] Interpretation and review of laboratory results Abnormal [facility] Lymphocytes (Bld) [#/Vol] 1.1 10*3/uL Low 1.2 - 3.4 10*3/uL [facility] Lymphocytes/100 WBC (Bld) 11.0 % Low 20.0 - 55.0 % [facility] MCH (RBC) [Entitic mass] 31.4 pg 26.0 - 35.0 PG [facility] MCHC (RBC) [Mass/Vol] 32.8 g/dL [facility] MCV (RBC) [Entitic vol] 96.0 fL [facility] Monocytes (Bld) [#/Vol] 1.1 10*3/uL High 0.0 - 0.7 10*3/uL [facility] Monocytes/100 WBC (Bld) 10.8 % High 0.0 - 10.0 % [facility] Neutrophils (Bld) [#/Vol] 7.6 10*3/uL High 1.4 - 6.5 10*3/uL [facility] Neutrophils/100 WBC (Bld) 77.4 % High 37.0 - 75.0 % [facility] Platelet mean volume (Bld) [Entitic vol] 8.4 fL [facility] Platelets (Bld) [#/Vol] 226 10*3/uL 130 - 400 10*3/uL [facility] RBC (Bld) [#/Vol] 3.35 10*6/uL Low 4.0 - 5.4 10*6/uL [facility] WBC (Bld) [#/Vol] 9.9 10*3/uL 3.6 - 11.0 10*3/uL [facility] BASIC METABOLIC PANELon - Anion gap [Moles/Vol] 4 mmol/L MMOL/L [facility] Calcium [Mass/Vol] 9.0 mg/dL [facility] Chloride [Moles/Vol] 107 mmol/L [facility] Comment on above: Please note: Triglyc eride levels of 600mg/dL or higher may positively bias chloride results by approximately 2.1 mmol CO2 [Moles/Vol] 26 mmol/L [facility] Creatinine [Mass/Vol] 0.70 mg/dL [facility] GFR COMMENT Average GFR for 70+ years old = 75. [facility] Comment on above: Chronic Kidney disea se, GFR = <60. Kidney failure, GFR = <15. The GFR estimate is not adjusted for extreme body surface area or acute process, nor has it been validated for women or ethnic groups other than and . GFR/1.73 sq M.predicted among blacks MDRD (S/P/Bld) [Vol rate/Area] 103 mL/min/{1.73_m2} ml/min/1.73sq .m [facility] GFR/1.73 sq M.predicted among non-blacks MDRD (S/P/Bld) [Vol rate/Area] 85 mL/min/{1.73_m2} ml/min/1.73sq .m [facility] Glucose post fast [Mass/Vol] 164 mg/dL High [facility] Comment on above: NORMAL <100 mg/dL PREDIABETES 101-126 mg/dL DIABETES 126 mg/dL or higher Interpretation and review of laboratory results Abnormal [facility] Potassium [Moles/Vol] 4.2 mmol/L [facility] Sodium [Moles/Vol] 137 mmol/L [facility] Urea nitrogen [Mass/Vol] 19 mg/dL [facility] BMP FASTINGon 01-13-2024 Anion gap [Moles/Vol] 4 mmol/L Normal [facility] Comment on above: Performed By: #### A CBC, BMPF #### Testing performed at [address] [address] Calcium [Mass/Vol] 9.0 mg/dL Normal 8.4-10.2 [facility] Comment on above: Performed By: #### A CBC, BMPF #### Testing performed at [address] [address] Chloride [Moles/Vol] 107 mmol/L Normal 98-107 [facility] Comment on above: Result Comment: Shonda matthews note: Triglyceride levels of 600mg/dL or higher may positively bias chloride results by approximately 2.1 mmol Performed By: #### A CBC, BMPF #### Testing performed at [address] [address] CO2 [Moles/Vol] 26 mmol/L Normal 22-30 [facility] Comment on above: Performed By: #### A CBC, BMPF #### Testing performed at [address] [address] Creatinine [Mass/Vol] 0.70 mg/dL Normal 0.70-1.20 [facility] Comment on above: Performed By: #### A CBC, BMPF #### Testing performed at [address] [address] EST. GFR, 103 ml/min/1.73sq.m [facility] Comment on above: Performed By: #### A CBC, BMPF #### Testing performed at [address] [address] EST. GFR,Non 85 ml/min/1.73sq.m [facility] Comment on above: Performed By: #### A CBC, BMPF #### Testing performed at [address] [address] GFR Information Average GFR for 70+ years old = 75. [facility] Comment on above: Result Comment: Beater Dumper aviva Kidney disease, GFR = <60. Kidney failure, GFR = <15. The GFR estimate is not adjusted for extreme body surface area or acute process, nor has it been validated for women or ethnic groups other than and . Performed By: #### A CBC, BMPF #### Testing performed at [address] [address] Glucose [Mass/Vol] 164 mg/dL High 70-100 [facility] Comment on above: Result Comment: NORMAL <100 mg/dL PREDIABETES 101-126 mg/dL DIABETES 126 mg/dL or higher Performed By: #### A CBC, BMPF #### Testing performed at [address] [address] Potassium [Moles/Vol] 4.2 mmol/L Normal 3.5-5.1 [facility] Comment on above: Performed By: #### A CBC, BMPF #### Testing performed at [address] [address] Sodium [Moles/Vol] 137 mmol/L Normal 137-145 [facility] Comment on above: Performed By: #### A CBC, BMPF #### Testing performed at [address] [address] Urea nitrogen [Mass/Vol] 19 mg/dL Normal 7-20 [facility] Comment on above: Performed By: #### A CBC, BMPF #### Testing performed at [address] [place] [address] CBCon 01-13-2024 ABSOLUTE BAS 0.0 10*3/uL Normal 0.0-0.2 [facility] Comment on above: Performed By: #### A CBC, BMPF #### Testing performed at [address] [place] [address] ABSOLUTE EOS 0.0 10*3/uL Normal 0.0-0.7 [facility] Comment on above: Performed By: #### A CBC, BMPF #### Testing performed at [address] [place] [address] ABSOLUTE NEUTROPHIL COUNT 8.6 10*3/uL High 1.4-6.5 [facility] Comment on above: Performed By: #### A CBC, BMPF #### Testing performed at [address] [place] [address] Basophils/100 WBC (Bld) 0.0 % Normal 0.0-2.0 [facility] Comment on above: Performed By: #### A CBC, BMPF #### Testing performed at [address] [place] [address] DTYPE AUTO DIFF Normal [facility] Comment on above: Performed By: #### A CBC, BMPF #### Testing performed at [address] [place] [address] Eosinophils/100 WBC (Bld) 0.0 % Normal 0.0-11.0 [facility] Comment on above: Performed By: #### A CBC, BMPF #### Testing performed at [address] [place] [address] Lymphocytes (Bld) [#/Vol] 0.6 10*3/uL Low 1.2-3.4 [facility] Comment on above: Performed By: #### A CBC, BMPF #### Testing performed at [address] [place] [address] Lymphocytes/100 WBC (Bld) 5.9 % Low 20.0-55.0 [facility] Comment on above: Performed By: #### A CBC, BMPF #### Testing performed at [address] [place] [address] Monocytes (Bld) [#/Vol] 0.8 10*3/uL High 0.0-0.7 [facility] Comment on above: Performed By: #### A CBC, BMPF #### Testing performed at [address] [address] Monocytes/100 WBC (Bld) 8.3 % Normal 0.0-10.0 [facility] Comment on above: Performed By: #### A CBC, BMPF #### Testing performed at [address] [address] Neutrophils/100 WBC (Bld) 85.8 % High 37.0-75.0 [facility] Comment on above: Performed By: #### A CBC, BMPF #### Testing performed at [address] [address] Erythrocyte distribution width (RBC) [Ratio] 14.5 % Normal 11.5-14.5 [facility] Comment on above: Performed By: #### A CBC, BMPF #### Testing performed at [address] [address] Hematocrit (Bld) [Volume fraction] 31.8 % Low 36.0-48.0 [facility] Comment on above: Performed By: #### A CBC, BMPF #### Testing performed at [address] [address] Hemoglobin (Bld) [Mass/Vol] 10.6 g/dL Low 12.0-16.0 [facility] Comment on above: Performed By: #### A CBC, BMPF #### Testing performed at [address] [address] MCH (RBC) [Entitic mass] 31.9 pg Normal 26.0-35.0 [facility] Comment on above: Performed By: #### A CBC, BMPF #### Testing performed at [address] [address] MCHC (RBC) [Mass/Vol] 33.2 g/dL Normal 27.0-37.0 [facility] Comment on above: Performed By: #### A CBC, BMPF #### Testing performed at [address] [place] [address] MCV (RBC) [Entitic vol] 95.9 fL Normal 80.0-100.0 [facility] Comment on above: Performed By: #### A CBC, BMPF #### Testing performed at [address] [address] Platelet mean volume (Bld) [Entitic vol] 8.1 fL Normal 7.4-11.0 [facility] Comment on above: Performed By: #### A CBC, BMPF #### Testing performed at [address] [address] Platelets (Bld) [#/Vol] 228 10*3/uL Normal 130-400 [facility] Comment on above: Performed By: #### A CBC, BMPF #### Testing performed at [address] [address] RBC (Bld) [#/Vol] 3.31 10*6/uL Low 4.0-5.4 [facility] Comment on above: Performed By: #### A CBC, BMPF #### Testing performed at [address] [address] WBC (Bld) [#/Vol] 10.0 10*3/uL Normal 3.6-11.0 [facility] Comment on above: Performed By: #### A CBC, BMPF #### Testing performed at [address] [address] CBC, EDIF, PLATELETon 2023 ABSOLUTE BASOPHIL COUNT 0.0 10*3/uL 0.0 - 0.2 10*3/uL [facility] Basophils/100 WBC (Bld) 0.0 % 0.0 - 2.0 % [facility] Differential cell count method Nom (Bld) AUTO DIFF % [facility] Eosinophils (Bld) [#/Vol] 0.0 10*3/uL 0.0 - 0.7 10*3/uL [facility] Eosinophils/100 WBC (Bld) 0.0 % 0.0 - 11.0 % [facility] Erythrocyte distribution width (RBC) [Ratio] 14.5 % 11.5 - 14.5 % [facility] Hematocrit (Bld) [Volume fraction] 31.8 % Low 36.0 - 48.0 % [facility] Hemoglobin (Bld) [Mass/Vol] 10.6 g/dL Low [facility] Interpretation and review of laboratory results Abnormal [facility] Lymphocytes (Bld) [#/Vol] 0.6 10*3/uL Low 1.2 - 3.4 10*3/uL [facility] Lymphocytes/100 WBC (Bld) 5.9 % Low 20.0 - 55.0 % [facility] MCH (RBC) [Entitic mass] 31.9 pg 26.0 - 35.0 PG [facility] MCHC (RBC) [Mass/Vol] 33.2 g/dL [facility] MCV (RBC) [Entitic vol] 95.9 fL [facility] Monocytes (Bld) [#/Vol] 0.8 10*3/uL High 0.0 - 0.7 10*3/uL [facility] Monocytes/100 WBC (Bld) 8.3 % 0.0 - 10.0 % [facility] Neutrophils (Bld) [#/Vol] 8.6 10*3/uL High 1.4 - 6.5 10*3/uL [facility] Neutrophils/100 WBC (Bld) 85.8 % High 37.0 - 75.0 % [facility] Platelet mean volume (Bld) [Entitic vol] 8.1 fL [facility] Platelets (Bld) [#/Vol] 228 10*3/uL 130 - 400 10*3/uL [facility] RBC (Bld) [#/Vol] 3.31 10*6/uL Low 4.0 - 5.4 10*6/uL [facility] WBC (Bld) [#/Vol] 10.0 10*3/uL 3.6 - 11.0 10*3/uL [facility] ECGOrdered By: Thom estevez on 01-13-2024 [facility] Work Phone: TROPONIN I, HIGH SENSITIVITY on 01-13-2024 Interpretation and review of laboratory results Abnormal [facility] TROPONIN I, HIGH SENSITIVITY 14 pg/mL High 0 - 12 pg/mL [facility] Comment on above: Indeterminant: >12 to 100 pg/mL female >20 to 100 pg/mL male Indicative of myocardial injury. Serial sampling is recommended, a change of greater than or equal to 20 pg/mL is indicative of acute coronary syndrome. [facility] TROPONIN I, HIGH SENSITIVITY 14 pg/mL High 0-12 [facility] Comment on above: Result Comment: Indeterminant: >12 to 100 pg/mL female >20 to 100 pg/mL male Indicative of myocardial injury. Serial sampling is recommended, a change of greater than or equal to 20 pg/mL is indicative of acute coronary syndrome. Performed By: #### U GRUPO, UMAC #### Testing performed at [address] [address] TROPONIN I, HIGH SENSITIVITY 10 pg/mL 0 - 12 pg/mL [facility] Comment on above: Indeterminant: >12 to 100 pg/mL female >20 to 100 pg/mL male Indicative of myocardial injury. Serial sampling is recommended, a change of greater than or equal to 20 pg/mL is indicative of acute coronary syndrome. [facility] TROPONIN I, HIGH SENSITIVITY 10 pg/mL Normal 0-[address] [place] [address] Comment on above: Result Comment: Indeterminant: >12 to 100 pg/mL female >20 to 100 pg/mL male Indicative of myocardial injury. Serial sampling is recommended, a change of greater than or equal to 20 pg/mL is indicative of acute coronary syndrome. Performed By: #### T [facility] #### Testing performed at [address] [address] TROPONIN I, HIGH SENSITIVITY 9 pg/mL 0 - 12 pg/mL [facility] Comment on above: Indeterminant: >12 to 100 pg/mL female >20 to 100 pg/mL male Indicative of myocardial injury. Serial sampling is recommended, a change of greater than or equal to 20 pg/mL is indicative of acute coronary syndrome. [facility] TROPONIN I, HIGH SENSITIVITY 9 pg/mL Normal 0-12 [facility] Comment on above: Result Comment: Indeterminant: >12 to 100 pg/mL female >20 to 100 pg/mL male Indicative of myocardial injury. Serial sampling is recommended, a change of greater than or equal to 20 pg/mL is indicative of acute coronary syndrome. Performed By: #### U GRUPO, UMAC #### Testing performed at [address] [place] [address] XR PELVIS 1-2 VIEWSon 2023 XR PELVIS [...] Postsurgical findings of left hip arthroplasty. Normal [facility] XR Pelvis 2 Viewson 01-13-20 IMPRESSION: Postsurgical [...] IMPRESSION: Postsurgical findings of left hip arthroplasty. [facility] XR Pelvis 2 ViewsOrdered By: Eyda Aldridge on 01-13-2024 [facility] Work Phone: BASIC METABOLIC PANELon 12-18 Anion gap [Moles/Vol] 9 mmol/L MMOL/L [facility] Calcium [Mass/Vol] 9.1 mg/dL [facility] Chloride [Moles/Vol] 105 mmol/L [facility] Comment on above: Please note: Triglyc eride levels of 600mg/dL or higher may positively bias chloride results by approximately 2.1 mmol CO2 [Moles/Vol] 24 mmol/L [facility] Creatinine [Mass/Vol] 0.70 mg/dL [facility] GFR COMMENT Average GFR for 70+ years old = 75. [facility] Comment on above: Chronic Kidney disea se, GFR = <60. Kidney failure, GFR = <15. The GFR estimate is not adjusted for extreme body surface area or acute process, nor has it been validated for women or ethnic groups other than and . GFR/1.73 sq M.predicted among blacks MDRD (S/P/Bld) [Vol rate/Area] 103 mL/min/{1.73_m2} ml/min/1.73sq .m [facility] GFR/1.73 sq M.predicted among non-blacks MDRD (S/P/Bld) [Vol rate/Area] 85 mL/min/{1.73_m2} ml/min/1.73sq .m [facility] Glucose post fast [Mass/Vol] 179 mg/dL High [facility] Comment on above: NORMAL <100 mg/dL PREDIABETES 101-126 mg/dL DIABETES 126 mg/dL or higher Interpretation and review of laboratory results Abnormal [facility] Potassium [Moles/Vol] 4.0 mmol/L [facility] Sodium [Moles/Vol] 138 mmol/L [facility] Urea nitrogen [Mass/Vol] 16 mg/dL [facility] BMP FASTINGon 01-12-2024 Anion gap [Moles/Vol] 9 mmol/L Normal [facility] Comment on above: Performed By: #### U GRUPO, UMAC #### Testing performed at [address] [address] Calcium [Mass/Vol] 9.1 mg/dL Normal 8.4-10.2 [facility] Comment on above: Performed By: #### U GRUPO, UMAC #### Testing performed at [address] [address] Chloride [Moles/Vol] 105 mmol/L Normal 98-107 [facility] Comment on above: Result Comment: Plea se note: Triglyceride levels of 600mg/dL or higher may positively bias chloride results by approximately 2.1 mmol Performed By: #### U GRUPO, UMAC #### Testing performed at [address] [address] CO2 [Moles/Vol] 24 mmol/L Normal 22-30 [facility] Comment on above: Performed By: #### U GRUPO, UMAC #### Testing performed at [address] [address] [address] Creatinine [Mass/Vol] 0.70 mg/dL Normal 0.70-1.20 [facility] Comment on above: Performed By: #### U GRUPO, UMAC #### Testing performed at [address] [address] EST. GFR, 103 ml/min/1.73sq.m [facility] Comment on above: Performed By: #### U [facility], UMAC #### Testing performed at [address] [address] EST. GFR,Non 85 ml/min/1.73sq.m [facility] Comment on above: Performed By: #### U GRUPO, UMAC #### Testing performed at [address] [address] GFR Information Average GFR for 70+ years old = 75. Normal [facility] Comment on above: Result Comment: Beater Dumper aviva Kidney disease, GFR = <60. Kidney failure, GFR = <15. The GFR estimate is not adjusted for extreme body surface area or acute process, nor has it been validated for women or ethnic groups other than and . Performed By: #### U GRUPO, UMAC #### Testing performed at [address] [address] Glucose [Mass/Vol] 179 mg/dL High 70-100 [facility] Comment on above: Result Comment: NORMAL <100 mg/dL PREDIABETES 101-126 mg/dL DIABETES 126 mg/dL or higher Performed By: #### U [facility], UMAC #### Testing performed at [address] [address] Potassium [Moles/Vol] 4.0 mmol/L Normal 3.5-5.1 [facility] Comment on above: Performed By: #### U GRU[facility], UMAC #### Testing performed at [address] [address] Sodium [Moles/Vol] 138 mmol/L Normal 137-145 [facility] Comment on above: Performed By: #### U [facility], UMAC #### Testing performed at [address] [address] Urea nitrogen [Mass/Vol] 16 mg/dL Normal 7-20 [facility] Comment on above: Performed By: #### U [facility], UMAC #### Testing performed at [address] [address] CBCon 01-12-2024 ABSOLUTE BAS 0.0 10*3/uL Normal 0.0-0.2 [facility] Comment on above: Performed By: #### U GRUPO, UMAC #### Testing performed at [address] [address] ABSOLUTE EOS 0.0 10*3/uL Normal 0.0-0.7 [facility] Comment on above: Performed By: #### U GRUPO, UMAC #### Testing performed at [address] [address] ABSOLUTE NEUTROPHIL COUNT 9.4 10*3/uL High 1.4-6.5 [facility] Comment on above: Performed By: #### U [facility], UMAC #### Testing performed at [address] [address] Basophils/100 WBC (Bld) 0.1 % Normal 0.0-2.0 [facility] Comment on above: Performed By: #### U [facility], UMAC #### Testing performed at [address] [address] DTYPE AUTO DIFF Normal [facility] Comment on above: Performed By: #### U [facility], UMAC #### Testing performed at [address] [address] Eosinophils/100 WBC (Bld) 0.0 % Normal 0.0-11.0 [facility] Comment on above: Performed By: #### U [facility], UMAC #### Testing performed at [address] [address] Lymphocytes (Bld) [#/Vol] 0.6 10*3/uL Low 1.2-3.4 [facility] Comment on above: Performed By: #### U [facility], UMAC #### Testing performed at [address] [address] Lymphocytes/100 WBC (Bld) 5.9 % Low 20.0-55.0 [facility] Comment on above: Performed By: #### U [facility], UMAC #### Testing performed at [address] [address] Monocytes (Bld) [#/Vol] 0.5 10*3/uL Normal 0.0-0.7 [facility] Comment on above: Performed By: #### U GRU[facility], UMAC #### Testing performed at [address] [address] Monocytes/100 WBC (Bld) 4.5 % Normal 0.0-10.0 [facility] Comment on above: Performed By: #### U [facility], UMAC #### Testing performed at [address] [address] Neutrophils/100 WBC (Bld) 89.5 % High 37.0-75.0 [facility] Comment on above: Performed By: #### U [facility], UMAC #### Testing performed at [address] [address] Erythrocyte distribution width (RBC) [Ratio] 14.3 % Normal 11.5-14.5 [facility] Comment on above: Performed By: #### U [facility], UMAC #### Testing performed at [address] [address] Hematocrit (Bld) [Volume fraction] 33.3 % Low 36.0-48.0 [facility] Comment on above: Performed By: #### U [facility], UMAC #### Testing performed at [address] [address] Hemoglobin (Bld) [Mass/Vol] 10.9 g/dL Low 12.0-16.0 [facility] Comment on above: Performed By: #### U GRU[facility], UMAC #### Testing performed at [address] [address] MCH (RBC) [Entitic mass] 31.4 pg Normal 26.0-35.0 [facility] Comment on above: Performed By: #### U GRU[facility], UMAC #### Testing performed at [address] [address] MCHC (RBC) [Mass/Vol] 32.8 g/dL Normal 27.0-37.0 [facility] Comment on above: Performed By: #### U GRU[facility], UMAC #### Testing performed at [address] [address] MCV (RBC) [Entitic vol] 95.7 fL Normal 80.0-100.0 [facility] Comment on above: Performed By: #### U GR[facility], UMAC #### Testing performed at [address] [address] Platelet mean volume (Bld) [Entitic vol] 8.2 fL Normal 7.4-11.0 [facility] Comment on above: Performed By: #### U GRUPO, UMAC #### Testing performed at [address] [address] Platelets (Bld) [#/Vol] 247 10*3/uL Normal 130-400 [facility] Comment on above: Performed By: #### U [facility], UMAC #### Testing performed at [address] [address] RBC (Bld) [#/Vol] 3.48 10*6/uL Low 4.0-5.4 [facility] Comment on above: Performed By: #### U GRU[facility], UMAC #### Testing performed at [address] [address] WBC (Bld) [#/Vol] 10.5 10*3/uL Normal 3.6-11.0 [facility] Comment on above: Performed By: #### U [facility], UMAC #### Testing performed at [address] [address] CBC, EDIF, PLATELETon 2023 ABSOLUTE BASOPHIL COUNT 0.0 10*3/uL 0.0 - 0.2 10*3/uL [facility] Basophils/100 WBC (Bld) 0.1 % 0.0 - 2.0 % [facility] Differential cell count method Nom (Bld) AUTO DIFF % [facility] Eosinophils (Bld) [#/Vol] 0.0 10*3/uL 0.0 - 0.7 10*3/uL [facility] Eosinophils/100 WBC (Bld) 0.0 % 0.0 - 11.0 % [facility] Erythrocyte distribution width (RBC) [Ratio] 14.3 % 11.5 - 14.5 % [facility] Hematocrit (Bld) [Volume fraction] 33.3 % Low 36.0 - 48.0 % [facility] Hemoglobin (Bld) [Mass/Vol] 10.9 g/dL Low [facility] Interpretation and review of laboratory results Abnormal [facility] Lymphocytes (Bld) [#/Vol] 0.6 10*3/uL Low 1.2 - 3.4 10*3/uL [facility] Lymphocytes/100 WBC (Bld) 5.9 % Low 20.0 - 55.0 % [facility] MCH (RBC) [Entitic mass] 31.4 pg 26.0 - 35.0 PG [facility] MCHC (RBC) [Mass/Vol] 32.8 g/dL [facility] MCV (RBC) [Entitic vol] 95.7 fL [facility] Monocytes (Bld) [#/Vol] 0.5 10*3/uL 0.0 - 0.7 10*3/uL [facility] Monocytes/100 WBC (Bld) 4.5 % 0.0 - 10.0 % [facility] Neutrophils (Bld) [#/Vol] 9.4 10*3/uL High 1.4 - 6.5 10*3/uL [facility] Neutrophils/100 WBC (Bld) 89.5 % High 37.0 - 75.0 % [facility] Platelet mean volume (Bld) [Entitic vol] 8.2 fL [facility] Platelets (Bld) [#/Vol] 247 10*3/uL 130 - 400 10*3/uL [facility] RBC (Bld) [#/Vol] 3.48 10*6/uL Low 4.0 - 5.4 10*6/uL [facility] WBC (Bld) [#/Vol] 10.5 10*3/uL 3.6 - 11.0 10*3/uL [facility] GENERAL PROCEDUREOrdered By: Vj Alvarez on 01-11-2024 [facility] Work Phone: Radiology Study observation (narrative) [facility] Work Phone: PROTIMEon 01-11-2024 INR Coag (PPP) [Relative time] 1.09 {INR} Normal 0.85-1.10 [facility] Comment on above: Result Comment: 2.0-3.0 THERAPEUTIC RANGE 2.5-3.5 MECHANICAL VALVE RANGE Performed By: #### P T #### Testing performed at [address] [address] PT Coag (PPP) [Time] 14.2 s Normal 11.8-14.4 [facility] Comment on above: Performed By: #### P T #### Testing performed at [address] [address] PROTIME-INRon 01-11-2024 INR Coag (PPP) [Relative time] 1.09 {INR} 0.85 - 1.10 [facility] Comment on above: 2.0-3.0 THERAPEUTIC RANGE 2.5-3.5 MECHANICAL VALVE RANGE PT Coag (PPP) [Time] 14.2 s [facility] REPEAT ABO/RHon 01-11-2024 REPEAT ABO/RH Positive Normal [facility] Comment on above: Performed By: #### U [facility], UMAC #### Testing performed at [address] [address] REPEAT ABO/RH (D) TYPINGon 0 01-11-2024 ABO and Rh group Nom (Bld ) Positive [facility] XR Pelvis 2 Viewson 01-11-20 Radiology Study observation (narrative) [facility] 36on 01-10-2024 36 Regarding echo from 12/29/2023: MD Amairani Corrales MA Patient echo is overall normal. Therefore she can proceed with surgery from cardiac point of view with necessary anesthesia. She is considered to be at low risk for perioperative cardiac events. Thank you Dr Kim Suarez faxed to Dr. Heredia's office. Normal [facility] Office Visiton 12-22-2023 Follow-up visit [id number] Cuate Goodman 1940 F Date Provider Department Center 12/22/2023 [id number] QUIÑONEZ BH [facility] Family History Problem Relation Age of Onset Lung cancer Mother Heart disease Father Other Father Prostate cancer Father Family Status - Relation Status Age at Mother Father Level of Service:96190 [facility] OFFICE/OUTPATIENT NEW MODERATE MDM 45 MINUTES Normal [facility] URINE CULTUREon 12-18-2023 Bacteria identified Cx Nom (U) SPECIMEN DESCRIPTION URINE CLEAN CATCH UA DIPSTICK LEUKOCYTE POSITIVE * Result Note: NITRITE POSITIVE * COLONY COUNT >100,000 C/C/ML CULTURE KLEBSIELLA PNEUMONIAE * Result Note: Testing performed at [place] [address] * REPORT STATUS 12/18/2023 * Result Note: [...] CEFEPIME <=1 SUSCEPTIBLE CEFTAZIDIME <=1 SUSCEPTIBLE Normal [facility] Comment on above: Performed By: #### A URNC #### Testing performed at [facility] [address] [place] [address] Testing performed at [facility] [address] [place] [address] CBCon 12-16-2023 ABSOLUTE BAS 0.1 10*3/uL Normal 0.0-0.2 [facility] Comment on above: Performed By: #### U [facility], UMAC #### Testing performed at [address] [place] [address] ABSOLUTE EOS 0.1 10*3/uL Normal 0.0-0.7 [facility] Comment on above: Performed By: #### U [facility], UMAC #### Testing performed at [address] [place] [address] ABSOLUTE NEUTROPHIL COUNT 3.5 10*3/uL Normal 1.4-6.5 [facility] Comment on above: Performed By: #### U [facility], UMAC #### Testing performed at [address] [place] [address] Basophils/100 WBC (Bld) 0.9 % Normal 0.0-2.0 [facility] Comment on above: Performed By: #### U [facility], UMAC #### Testing performed at [address] [place] [address] DTYPE AUTO DIFF Normal [facility] Comment on above: Performed By: #### U [facility], UMAC #### Testing performed at [address] [place] [address] Eosinophils/100 WBC (Bld) 1.8 % Normal 0.0-11.0 [facility] Comment on above: Performed By: #### U [facility], UMAC #### Testing performed at [address] [address] Lymphocytes (Bld) [#/Vol] 1.4 10*3/uL Normal 1.2-3.4 [facility] Comment on above: Performed By: #### U [facility], UMAC #### Testing performed at [address] [place] [address] Lymphocytes/100 WBC (Bld) 25.0 % Normal 20.0-55.0 [facility] Comment on above: Performed By: #### U [facility], UMAC #### Testing performed at [address] [place] [address] Monocytes (Bld) [#/Vol] 0.5 10*3/uL Normal 0.0-0.7 [facility] Comment on above: Performed By: #### U [facility], UMAC #### Testing performed at [address] [place] [address] Monocytes/100 WBC (Bld) 9.1 % Normal 0.0-10.0 [facility] Comment on above: Performed By: #### U [facility], UMAC #### Testing performed at [address] [place] [address] Neutrophils/100 WBC (Bld) 63.2 % Normal 37.0-75.0 [facility] Comment on above: Performed By: #### U [facility], UMAC #### Testing performed at [address] [place] [address] Erythrocyte distribution width (RBC) [Ratio] 14.9 % High 11.5-14.5 [facility] Comment on above: Performed By: #### U [facility], UMAC #### Testing performed at [address] [place] [address] Hematocrit (Bld) [Volume fraction] 39.2 % Normal 36.0-48.0 [facility] Comment on above: Performed By: #### U [facility], UMAC #### Testing performed at [address] [place] [address] Hemoglobin (Bld) [Mass/Vol] 12.8 g/dL Normal 12.0-16.0 [facility] Comment on above: Performed By: #### U [facility], UMAC #### Testing performed at [address] [place] [address] MCH (RBC) [Entitic mass] 31.1 pg Normal 26.0-35.0 [facility] Comment on above: Performed By: #### U [facility], UMAC #### Testing performed at [address] [place] [address] MCHC (RBC) [Mass/Vol] 32.6 g/dL Normal 27.0-37.0 [facility] Comment on above: Performed By: #### U [facility], UMAC #### Testing performed at [address] [place] [address] MCV (RBC) [Entitic vol] 95.4 fL Normal 80.0-100.0 [facility] Comment on above: Performed By: #### U [facility], UMAC #### Testing performed at [address] [place] [address] Platelet mean volume (Bld) [Entitic vol] 8.8 fL Normal 7.4-11.0 [facility] Comment on above: Performed By: #### U [facility], UMAC #### Testing performed at [address] [place] [address] Platelets (Bld) [#/Vol] 298 10*3/uL Normal 130-400 [facility] Comment on above: Performed By: #### U [facility], UMAC #### Testing performed at [address] [place] [address] RBC (Bld) [#/Vol] 4.11 10*6/uL Normal 4.0-5.4 [facility] Comment on above: Performed By: #### U [facility], UMAC #### Testing performed at [address] [address] WBC (Bld) [#/Vol] 5.6 10*3/uL Normal 3.6-11.0 [facility] Comment on above: Performed By: #### U [facility], UMAC #### Testing performed at [address] [place] [address] CMP FASTINGon 12-16-2023 A:G RATIO 1.3 RATIO Normal [facility] Comment on above: Performed By: #### U [facility], UMAC #### Testing performed at [address] [place] [address] ALBUMIN 4.0 G/dl Normal 3.5-5.0 [facility] Comment on above: Performed By: #### U [facility], UMAC #### Testing performed at [address] [place] [address] ALP [Catalytic activity/Vol] 89 U/L Normal 38-126 [facility] Comment on above: Performed By: #### U [facility], UMAC #### Testing performed at [address] [place] [address] ALT [Catalytic activity/Vol] 16 U/L Normal <35 [facility] Comment on above: Performed By: #### U [facility], UMAC #### Testing performed at [address] [place] [address] AST [Catalytic activity/Vol] 25 U/L Normal 14-36 [facility] Comment on above: Performed By: #### U [facility], UMAC #### Testing performed at [address] [address] Bilirubin [Mass/Vol] 0.3 mg/dL Normal 0.2-1.3 [facility] Comment on above: Performed By: #### U [facility], UMAC #### Testing performed at [address] [address] Calcium [Mass/Vol] 9.9 mg/dL Normal 8.4-10.2 [facility] Comment on above: Performed By: #### U [facility], UMAC #### Testing performed at [address] [address] Chloride [Moles/Vol] 107 mmol/L Normal 98-107 [facility] Comment on above: Result Comment: Shonda matthews note: Triglyceride levels of 600mg/dL or higher may positively bias chloride results by approximately 2.1 mmol Performed By: #### U [facility], UMAC #### Testing performed at [address] [address] CO2 [Moles/Vol] 28 mmol/L Normal 22-30 [facility] Comment on above: Performed By: #### U GRU[facility], UMAC #### Testing performed at [address] [address] Creatinine [Mass/Vol] 0.80 mg/dL Normal 0.70-1.20 [facility] Comment on above: Performed By: #### U GRU[facility], UMAC #### Testing performed at [address] [address] EST. GFR, 89 ml/min/1.73sq.m [facility] Comment on above: Performed By: #### U [facility], UMAC #### Testing performed at [address] [place] [address] EST. GFR,Non 73 ml/min/1.73sq.m [facility] Comment on above: Performed By: #### U [facility], UMAC #### Testing performed at [address] [place] [address] GFR Information Average GFR for 70+ years old = 75. Normal [facility] Comment on above: Result Comment: Beater Dumper aviva Kidney disease, GFR = <60. Kidney failure, GFR = <15. The GFR estimate is not adjusted for extreme body surface area or acute process, nor has it been validated for women or ethnic groups other than and . Performed By: #### U [facility], UMAC #### Testing performed at [address] [address] Glucose [Mass/Vol] 115 mg/dL High 70-100 [facility] Comment on above: Result Comment: NORMAL <100 mg/dL PREDIABETES 101-126 mg/dL DIABETES 126 mg/dL or higher Performed By: #### U [facility], UMAC #### Testing performed at [address] [address] Potassium [Moles/Vol] 4.0 mmol/L Normal 3.5-5.1 [facility] Comment on above: Performed By: #### U [facility], UMAC #### Testing performed at [address] [address] Protein [Mass/Vol] 7.2 g/dL Normal 6.3-8.2 [facility] Comment on above: Performed By: #### U [facility], UMAC #### Testing performed at [address] [address] Sodium [Moles/Vol] 140 mmol/L Normal 137-145 [facility] Comment on above: Performed By: #### U [facility], UMAC #### Testing performed at [address] [address] Urea nitrogen [Mass/Vol] 19 mg/dL Normal 7-20 [facility] Comment on above: Performed By: #### U [facility], UMAC #### Testing performed at [address] [address] HEMOGLOBIN A1Con 12-16-2023 Glucose [Mass/Vol] 117 mg/dL Normal [facility] Comment on above: Performed By: #### H A1CT #### Testing performed at [address] [address] HbA1c (Bld) [Mass fraction] 5.7 % Normal 0-6 [facility] Comment on above: Result Comment: NORMAL <5.7% PREDIABETES 5.7-6.4% DIABETES 6.5% OR HIGHER Performed By: #### H A1CT #### Testing performed at [address] [address] MRSA SCREENon 12-16-2023 MRSA DNA SMILEY+probe Ql (Unsp spec) Negative Normal NEGATIVE [facility] Comment on above: Performed By: #### M RSAST #### Testing performed at [address] [address] STAPH AUREUS SCREEN Positive Abnormal NEGATIVE [facility] Comment on above: Result Comment: TEST ING PERFORMED BY PCR Performed By: #### M RSAST #### Testing performed at [address] [address] PROTIMEon 12-16-2023 INR Coag (PPP) [Relative time] 1.47 {INR} High 0.85-1.10 [facility] Comment on above: Result Comment: 2.0-3.0 THERAPEUTIC RANGE 2.5-3.5 MECHANICAL VALVE RANGE Performed By: #### U [facility], UMAC #### Testing performed at [address] [address] PT Coag (PPP) [Time] 17.9 s High 11.8-14.4 [facility] Comment on above: Performed By: #### U [facility], UMAC #### Testing performed at [address] [address] TYPE AND SCREEN CROSSMATCH C ONVERTIBLEon 12-16-2023 TYPE AND SCREEN CROSSMATCH CONVERTIBLE WORKUP EXPIRES 01/13/2024,2359 ABO/RH(D) O POSITIVE ANTIBODY SCREEN NEGATIVE ARM BAND NUMBER [id number] Normal [facility] Comment on above: Performed By: #### U [facility], UMAC #### Testing performed at [address] [address] URINE MACROSCOPICon 12-16-19 24 Bilirubin Ql (U) Negative Normal NEGATIVE [facility] Comment on above: Performed By: #### U GRU[facility], UMAC #### Testing performed at [address] [address] Clarity (U) SLIGHTLY CLOUDY Abnormal CLEAR [facility] Comment on above: Performed By: #### U [facility], UMAC #### Testing performed at [address] [address] Color (U) YELLOW Normal YELLOW [facility] Comment on above: Performed By: #### U [facility], UMAC #### Testing performed at [address] [address] Glucose Ql (U) Negative Normal NEGATIVE [facility] Comment on above: Performed By: #### U [facility], UMAC #### Testing performed at [address] [address] pH (U) 5.5 [pH] Normal 5.0-7.0 [facility] Comment on above: Performed By: #### U [facility], UMAC #### Testing performed at [address] [address] Protein (U) [Mass/Vol] 30 mg/dL Abnormal NEGATIVE [facility] Comment on above: Performed By: #### U [facility], UMAC #### Testing performed at [address] [place] [address] URINE HEMOGLOBIN MODERATE Abnormal NEGATIVE [facility] Comment on above: Performed By: #### U [facility], UMAC #### Testing performed at [address] [place] [address] URINE KETONE Negative Normal NEGATIVE [facility] Comment on above: Performed By: #### U [facility], UMAC #### Testing performed at [address] [address] URINE LEUKOTEST SMALL Abnormal NEGATIVE [facility] Comment on above: Performed By: #### U [facility], UMAC #### Testing performed at [address] [address] URINE NITRATES Positive Abnormal NEGATIVE [facility] Comment on above: Performed By: #### U [facility], UMAC #### Testing performed at [address] [address] URINE SPEC GRAVITY 1.025 Normal 1.010-1.025 [facility] Comment on above: Performed By: #### U [facility], UMAC #### Testing performed at [address] [address] Urobilinogen Qn (U) 0.2 {Monique'U}/dL Normal 0.2-1.0 [facility] Comment on above: Performed By: #### U [facility], UMAC #### Testing performed at [address] [address] URINE MICROSCOPICon 12-16-19 24 BACTERIA 3+ Abnormal NEGATIVE [facility] Comment on above: Performed By: #### U [facility], UMAC #### Testing performed at [address] [address] CASTS NONE Normal [facility] Comment on above: Performed By: #### U [facility], UMAC #### Testing performed at [address] [address] CRYSTAL NONE Normal [facility] Comment on above: Performed By: #### U [facility], UMAC #### Testing performed at [address] [address] Epithelial cells LM Ql (Urine sed) 1 TO 5 Normal [facility] Comment on above: Performed By: #### U [facility], UMAC #### Testing performed at [address] [address] Mucus Ql (Urine sed) Negative Normal NEGATIVE [facility] Comment on above: Performed By: #### U [facility], UMAC #### Testing performed at [address] [address] URINE COMMENT REFLEX CULTURE PER ESTABLISHED CRITERIA. Normal [facility] Comment on above: Performed By: #### U [facility], UMAC #### Testing performed at [address] [address] URINE RBC'S 1 TO 5 Normal NEGATIVE [facility] Comment on above: Performed By: #### U [facility], UMAC #### Testing performed at [address] [address] URINE WBC'S TOO NUMEROUS TO COUNT Abnormal NEGATIVE [facility] Comment on above: Performed By: #### U [facility], UMAC #### Testing performed at [address] [address] CBC AND AUTO DIFFon 09-18-19 24 ABSOLUTE BASOPHIL 0.1 X10E9/L Normal 0.0-0.2 [facility] Comment on above: Performed By: #### C BCA, CMP, 39093-6, 80899-6, 3084-1, 3016- 3, 3024-7, 3051-0, 2284-8, 2132-03 #### [facility] ([id number]) [address], [address] [place] [address] ABSOLUTE NEUTROPHIL 4.0 X10E9/L Normal 1.5-6.6 [facility] Comment on above: Performed By: #### C BCA, CMP, 94966-2, 30912-8, 3084-1, 3016- 3, 3024-7, 3051-0, 2284-8, 2132-03 #### [facility] ([id number]) [address], [address] [place] [address] Basophils/100 WBC (Bld) 1.0 % Normal [facility] Comment on above: Performed By: #### C BCA, CMP, 91018-5, 51754-4, 3084-1, 3016- 3, 3024-7, 3051-0, 228-8, 2132-03 #### [facility] ([id number]) [address], [address] [place] [address] Eosinophils (Bld) [#/Vol] 0.1 10*3/uL Normal 0.0-0.4 [facility] Comment on above: Performed By: #### C BCA, CMP, 89150-1, 20116-1, 3084-1, 3016- 3, 3024-7, 3051-0, 2284-8, 2132-03 #### [facility] ([id number]) [address], [address] [place] [address] Eosinophils/100 WBC (Bld) 1.8 % Normal [facility] Comment on above: Performed By: #### C BCA, CMP, 32289-3, 07300-4, 3084-1, 3016- 3, 3024-7, 3051-0, 2284-8, 2132-03 #### [facility] ([id number]) [address], [address] [place] [address] Erythrocyte distribution width (RBC) [Ratio] 15.2 % High 11.5-15.0 [facility] Comment on above: Performed By: #### C BCA, CMP, 78699-4, 38265-2, 3084-1, 3016- 3, 3024-7, 3051-0, 2284-8, 2132-03 #### [facility] ([id number]) [address], [address] [place] [address] Hematocrit (Bld) [Volume fraction] 36.9 % Normal 35-47 [facility] Comment on above: Performed By: #### C BCA, CMP, 86279-8, 17371-7, 3084-1, 3016- 3, 3024-7, 3051-0, 2284-8, 2132-03 #### [facility] ([id number]) [address], [address] [place] [address] Hemoglobin (Bld) [Mass/Vol] 12.3 g/dL Normal 11.7-15.5 [facility] Comment on above: Performed By: #### C BCA, CMP, 44491-3, 50644-0, 3084-1, 3016- 3, 3024-7, 3051-0, 2284-8, 2132-03 #### [facility] ([id number]) [address], [address] [place] [address] Lymphocytes (Bld) [#/Vol] 1.5 10*3/uL Normal 1.0-3.5 [facility] Comment on above: Performed By: #### C BCA, CMP, 62811-3, 21424-2, 3084-1, 3016- 3, 3024-7, 3051-0, 2284-8, 2132-03 #### [facility] ([id number]) [address], [address] [place] [address] Lymphocytes/100 WBC (Bld) 23.4 % Normal [facility] Comment on above: Performed By: #### C BCA, CMP, 24700-8, 25197-5, 3084-1, 3016- 3, 3024-7, 3051-0, 2284-8, 2132-03 #### [facility] ([id number]) [address], [address] [place] [address] MCH (RBC) [Entitic mass] 30.8 pg Normal 27-34 [facility] Comment on above: Performed By: #### C BCA, CMP, 19396-3, 30150-5, 3084-1, 3016- 3, 3024-7, 3051-0, 2284-8, 2132-03 #### [facility] ([id number]) [address], [address] [place] [address] MCHC (RBC) [Mass/Vol] 33.3 g/dL Normal 32-36 [facility] Comment on above: Performed By: #### C BCA, CMP, 39859-4, 08037-9, 3084-1, 3016- 3, 3024-7, 3051-0, 2284-8, 2132-03 #### [facility] ([id number]) [address], [address] [place] [address] MCV (RBC) [Entitic vol] 93 fL Normal 80-100 [facility] Comment on above: Performed By: #### C BCA, CMP, 67173-3, 65946-2, 3084-1, 3016- 3, 3024-7, 3051-0, 2284-8, 2132-03 #### [facility] ([id number]) [address], [address] [place] [address] Monocytes (Bld) [#/Vol] 0.6 10*3/uL Normal 0-0.9 [facility] Comment on above: Performed By: #### C BCA, CMP, 55828-7, 39459-7, 3084-1, 3016- 3, 3024-7, 3051-0, 2284-8, 2132-03 #### [facility] ([id number]) [address], [address] [place] [address] Monocytes/100 WBC (Bld) 9.2 % Normal [facility] Comment on above: Performed By: #### C BCA, CMP, 35655-5, 51486-7, 3084-1, 3016- 3, 3024-7, 3051-0, 2284-8, 2132-03 #### [facility] ([id number]) [address], [address] [place] [address] Neutrophils/100 WBC (Bld) 64.6 % Normal [facility] Comment on above: Performed By: #### C BCA, CMP, 38761-8, 39370-0, 3084-1, 3016- 3, 3024-7, 3051-0, 2284-8, 2132-03 #### [facility] ([id number]) [address], [address] [place] [address] Platelet mean volume (Bld) [Entitic vol] 8.0 fL Normal 7-12 [facility] Comment on above: Performed By: #### C BCA, CMP, 54939-8, 60458-2, 3084-1, 3016- 3, 3024-7, 3051-0, 2284-8, 2132-03 #### [facility] ([id number]) [address], [address] [place] [address] Platelets (Bld) [#/Vol] 492 10*3/uL High 150-450 [facility] Comment on above: Performed By: #### C BCA, CMP, 98155-9, 23593-4, 3084-1, 3016- 3, 3024-7, 3051-0, 2284-8, 9 #### [facility] ([id number]) [address] [facility] [address] [place] [address] RBC COUNT 3.99 X10E12/L Normal 3.80-5.20 [facility] Comment on above: Performed By: #### C BCA, CMP, 59321-8, 33048-4, 3084-1, 3016- 3, 3024-7, 3051-0, 2284-8, 2132-03 #### [facility] ([id number]) [address] [facility] [facility] [address], [address] [place] [address] WBC (Bld) [#/Vol] 6.2 10*3/uL Normal 4.0-11.0 [facility] Comment on above: Performed By: #### C BCA, CMP, 25818-6, 56052-8, 3084-1, 3016- 3, 3024-7, 3051-0, 2284-8, 2132-03 #### [facility] ([id number]) [address] [address] [place] [address] COMPREHENSIVE METABOLIC PANE Jarad 09-18-2023 Albumin [Mass/Vol] 3.8 g/dL Normal 3.2-5.3 [facility] Comment on above: Performed By: #### C BCA, CMP, 37781-8, 80892-6, 3084-1, 3016- 3, 3024-7, 3051-0, 2284-8, 2132-03 #### [facility] ([id number]) [address] [facility], [address] [place] [address] ALP [Catalytic activity/Vol] 92 U/L Normal 39-130 [facility] Comment on above: Performed By: #### C BCA, CMP, 50388-4, 01223-8, 3084-1, 3016- 3, 3024-7, 3051-0, 2284-8, 2131-9 #### [facility] ([id number]) [address], [address] [place] [address] ALT [Catalytic activity/Vol] 9 U/L Normal 0-31 [facility] Comment on above: Performed By: #### C BCA, CMP, 16313-4, 26039-1, 3084-1, 3016- 3, 3024-7, 3051-0, 2284-8, 2131-9 #### [facility] ([id number]) [address], [address] [place] [address] Anion gap [Moles/Vol] 9 mmol/L Normal 5-15 [facility] Comment on above: Performed By: #### C BCA, CMP, 35258-2, 57153-6, 3084-1, 3016- 3, 3024-7, 3051-0, 2284-8, 2132-03 #### [facility] ([id number]) [address], [address] [place] [address] AST [Catalytic activity/Vol] 16 U/L Normal 0-41 [facility] Comment on above: Performed By: #### C BCA, CMP, 24342-2, 33136-2, 3084-1, 3016- 3, 3024-7, 3051-0, 2284-8, 2131-9 #### [facility] ([id number]) [address], [address] [place] [address] Bilirubin [Mass/Vol] 0.5 mg/dL Normal 0.3-1.2 [facility] Comment on above: Performed By: #### C BCA, CMP, 80414-2, 75531-7, 3084-1, 3016- 3, 3024-7, 3051-0, 2284-8, 2131-9 #### [facility] ([id number]) [address], [address] [place] [address] Calcium [Mass/Vol] 9.9 mg/dL Normal 8.5-10.5 [facility] Comment on above: Performed By: #### C BCA, CMP, 76732-4, 08936-1, 3084-1, 3016- 3, 3024-7, 3051-0, 2284-8, 2132-03 #### [facility] ([id number]) [address], [address] [place] [address] Chloride [Moles/Vol] 102 mmol/L Normal 98-109 [facility] Comment on above: Performed By: #### C BCA, CMP, 50289-4, 80770-2, 3084-1, 3016- 3, 3024-7, 3051-0, 2284-8, 2132-03 #### [facility] ([id number]) [address], [address] [place] [address] CO2 [Moles/Vol] 27 mmol/L Normal 22-32 [facility] Comment on above: Performed By: #### C BCA, CMP, 25263-2, 94905-5, 3084-1, 3016- 3, 3024-7, 3051-0, 228-8, 2132-03 #### [facility] ([id number]) [address], [address] [place] [address] Creatinine [Mass/Vol] 0.75 mg/dL Normal 0.40-1.00 [facility] Comment on above: Result Comment: METH OD TRACEABLE TO IDMS STANDARD Performed By: #### C BCA, CMP, 14108-7, 39920-7, 3084-1, 3016-3, 3024-7, 3051-0, 2284-8, 2132-03 #### [facility] ([id number]) [address], [address] [place] [address] GFR/1.73 sq M.predicted among non-blacks MDRD (S/P/Bld) [Vol rate/Area] 80 mL/min/{1.73_m2} Normal >59 [facility] Comment on above: Result Comment: Reported eGFR is based on the CKD-EPI 2020 equation that does not use a race coefficient. Performed By: #### C BCA, CMP, 94307-6, 96476-7, 3084-1, 3016-3, 3024-7, 3051-0, 2284-8, 9 #### [facility] ([id number]) [address] [place] [address] Glucose [Mass/Vol] 98 mg/dL Normal 65-99 [facility] Comment on above: Performed By: #### C BCA, CMP, 07488-0, 81840-4, 3084-1, 3016- 3, 3024-7, 3051-0, 2284-8, 2132-03 #### [facility] ([id number]) [address], [address] [place] [address] Potassium [Moles/Vol] 4.4 mmol/L Normal 3.5-5.0 [facility] Comment on above: Performed By: #### C BCA, CMP, 22513-9, 91755-1, 3084-1, 3016- 3, 3024-7, 3051-0, 228-8, 2132-03 #### [facility] ([id number]) [address] [place] [address] Protein [Mass/Vol] 7.5 g/dL Normal 6.0-8.0 [facility] Comment on above: Performed By: #### C BCA, CMP, 29098-9, 12162-9, 3084-1, 3016- 3, 3024-7, 3051-0, 2284-8, 2132-03 #### [facility] ([id number]) [address], [address] [place] [address] Sodium [Moles/Vol] 138 mmol/L Normal 134-146 [facility] Comment on above: Performed By: #### C BCA, CMP, 46806-9, 31965-3, 3084-1, 3016- 3, 3024-7, 3051-0, 2284-8, 2132-03 #### [facility] ([id number]) [address] [facility] [place] [address] Urea nitrogen [Mass/Vol] 21 mg/dL Normal 5-27 [facility] Comment on above: Performed By: #### C BCA, CMP, 43009-6, 26553-8, 3084-1, 3016- 3, 3024-7, 3051-0, 2284-8, 2132-03 #### [facility] ([id number]) [address] [facility], [address] [place] [address] FREE T3on 09-18-2023 Free T3 [Mass/Vol] 3.02 pg/mL Normal 2.50-3.90 [facility] Comment on above: Performed By: #### C BCA, CMP, 74866-8, 57958-8, 3084-1, 3016- 3, 3024-7, 3051-0, 2284-8, 2132-03 #### [facility] ([id number]) [address] [facility], [address] [place] [address] FREE T4on 09-18-2023 Free T4 [Mass/Vol] 1.24 ng/dL Normal 0.61-1.60 [facility] Comment on above: Performed By: #### C BCA, CMP, 61241-9, 32092-3, 3084-1, 3016- 3, 3024-7, 3051-0, 2284-8, 2132-03 #### [facility] ([id number]) [address] [facility] [place] [address] Folate [Mass/Vol]on 09-18-19 24 FOLIC ACID 16.5 ng/mL Normal >5.8 [facility] Comment on above: Result Comment: NEW REFERENCE RANGE Performed By: #### C BCA, CMP, 77835-5, 15799-0, 3084-1, 3016-3, 3024-7, 3051-0, 2284-8, 2132-03 #### [facility] ([id number]) [address] [place] [address], [address] [place] [address] HGB A1C (GLYCO-HGB)on 2023 Glucose [Mass/Vol] 120 mg/dL Normal [facility] Comment on above: Performed By: #### C BCA, CMP, 45149-5, 88693-7, 3084-1, 3016- 3, 3024-7, 3051-0, 2284-8, 2132-03 #### [facility] ([id number]) [address] [place] [address], [address] [place] [address] HbA1c (Bld) [Mass fraction] 5.8 % High 4.4-5.6 [facility] Comment on above: Result Comment: NOTE ADA Guidelines Result HgbA1c Normal : less than 5.7 % Prediabetes : 5.7 % to 6.4 % Diabetes : > 6.4 % Use with caution in patients with abnormal hemoglobin variants as the half-life of red blood cells and in vivo glycation rates are affected. Performed By: #### C BCA, CMP, 96813-5, 30885-3, 3084-1, 3016-3, 3024-7, 3051-0, 2283-8, 2132-03 #### [facility] ([id number]) [address] [place] [address], [address] [place] [address] Lipid 1996 panelon 4 Cholesterol [Mass/Vol] 157 mg/dL Normal 150-200 [facility] Comment on above: Performed By: #### C BCA, CMP, 48259-9, 37655-6, 3084-1, 3016- 3, 3024-7, 3051-0, 2284-8, 2132-03 #### [facility] ([id number]) [address] [place] [address], [address] [place] [address] Cholesterol in HDL [Mass/Vol] 57 mg/dL Normal >39 [facility] Comment on above: Result Comment: HDL <40 mg/dL - High Risk HDL > or = 40mg/dL- Desirable HDL >60 mg/dL - Negative Risk Performed By: #### C RIRI, CMP, 75706-6, 67075-6, 3084-1, 3016-3, 3024-7, 3051-0, 2284-8, 2132-03 #### [facility] ([id number]) [address], [address] [place] [address] Cholesterol in LDL [Mass/Vol] 79 mg/dL Normal <130 [facility] Comment on above: Result Comment: LDL <100 mg/dL - Desirable LDL >160 mg/dL - High Risk Performed By: #### Damian MENEZES, CMP, 32618-7, 96024-0, 3084-1, 3016-3, 3024-7, 3051-0, 2284-8, 2132-03 #### [facility] ([id number]) [address], [address] [place] [address] Cholesterol in VLDL [Mass/Vol] 21 mg/dL Normal 0-30 [facility] Comment on above: Performed By: ###Jake Salgado BCA, CMP, 53640-7, 66869-1, 3084-1, 3016- 3, 3024-7, 3051-0, 2284-8, 9 #### [facility] ([id number]) [address], [address] [place] [address] CHOLESTEROL:HDL 2.8 Normal 1.0-5.0 [facility] Comment on above: Performed By: #### C BCA, CMP, 09424-8, 10775-0, 3084-1, 3016- 3, 3024-7, 3051-0, 2284-8, 2132-03 #### [facility] ([id number]) [address], [address] [place] [address] Triglyceride [Mass/Vol] 104 mg/dL Normal 27-150 [facility] Comment on above: Performed By: #### C BCA, CMP, 50351-5, 73118-9, 3084-1, 3016- 3, 3024-7, 3051-0, 2284-8, 2132-03 #### [facility] ([id number]) [address], [address] [place] [address] MAGNESIUMon 09-18-2023 Magnesium [Mass/Vol] 1.7 mg/dL Low 1.8-2.6 [facility] Comment on above: Performed By: #### C BCA, CMP, 20212-8, 03935-6, 3084-1, 3016- 3, 3024-7, 3051-0, 2283-8, 2132-03 #### [facility] ([id number]) [address], [address] [place] [address] TSH Qnon 09-18-2023 TSH 2.26 uIU/mL Normal 0.49-4.67 [facility] Comment on above: Performed By: #### C BCA, CMP, 01755-6, 09627-8, 3084-1, 3016- 3, 3024-7, 3051-0, 228-8, 2132-03 #### [facility] ([id number]) [address], [address] [place] [address] URIC ACIDon 09-18-2023 Urate [Mass/Vol] 5.8 mg/dL Normal 2.6-7.2 [facility] Comment on above: Performed By: #### C BCA, CMP, 19184-2, 57805-2, 3084-1, 3016- 3, 3024-7, 3051-0, 2284-8, 2132-03 #### [facility] ([id number]) [address] [facility], [address] [place] [address] VITAMIN B12on 09-18-2023 Cobalamin (Vitamin B12) [Mass/Vol] pg/mL High 180-914 [facility] Comment on above: Performed By: #### C BCA, CMP, 50928-0, 58550-7, 3084-1, 3016- 3, 3024-7, 3051-0, 4-8, 2132-03 #### [facility] ([id number]) [address] [facility], [address] [place] [address] XR KNEE LT 3 VWSon 4 XR [...] Marquis MD on 09/18/2023 12:15 PM Normal [facility] CBC AUTO DIFFon 11-11-2022 BASO # 0.0 103/ul Normal 0.0-0.1 [facility] Comment on above: Performed By: #### U BRENT #### [facility] [address] [place] [address] Dr. Brandi Abarca Basophils/100 WBC (Bld) 0.5 % Normal 0.2-2.0 [facility] Comment on above: Performed By: #### U BRENT #### [facility] [address] [place] [address] Dr. Brandi Abarca EO # 0.2 103/ul Normal 0.0-0.7 [facility] Comment on above: Performed By: #### U BRENT #### [facility] [address] [place] [address] Dr. Brandi Abarca Eosinophils/100 WBC (Bld) 3.0 % Normal 0.9-7.0 [facility] Comment on above: Performed By: #### U BRENT #### [facility] [address] [place] [address] Dr. Brandi Abarca Erythrocyte distribution width (RBC) [Ratio] 13.6 % Normal 11.0-15.0 [facility] Comment on above: Performed By: #### U BRENT #### [facility] [address] [place] [address] Dr. Brandi Abarca Hematocrit (Bld) [Volume fraction] 34.4 % Critically low 36.0-48.0 [facility] Comment on above: Performed By: #### U BRENT #### [facility] [address] [place] [address] Dr. Brandi Abarca Hemoglobin (Bld) [Mass/Vol] 10.6 g/dL Critically low 12.0-16.0 [facility] Comment on above: Performed By: #### U BRENT #### [facility] [address] [place] [address] Dr. Brandi Abarca IG # 0.02 10e3/ul Normal 0.00-0.03 [facility] Comment on above: Performed By: #### U BRENT #### [facility] [address] [place] [address] Dr. Brandi Abarca IG % 0.3 % Normal 0.0-0.5 [facility] Comment on above: Performed By: #### U BRENT #### [facility] [address] [place] [address] Dr. Brandi Abarca LYMPH # 1.2 103/ul Normal 1.2-3.8 [facility] Comment on above: Performed By: #### U BRENT #### [facility] [address] [place] [address] Dr. Brandi Abarca Lymphocytes/100 WBC (Bld) 20.4 % Critically low 20.5-60.0 [facility] Comment on above: Performed By: #### U BRENT #### [facility] [address] [place] [address] Dr. Brandi Abarca MANUAL DIFF REQ NO Normal [facility] Comment on above: Performed By: #### U BRENT #### [facility] [address] [place] [address] Dr. Brandi Abarca MCH (RBC) [Entitic mass] 30.5 pg Normal 26.7-34.0 [facility] Comment on above: Performed By: #### U BRENT #### [facility] [address] [place] [address] Dr. Brandi Abarca MCHC (RBC) [Mass/Vol] 30.8 g/dL Normal 29.9-35.2 [facility] Comment on above: Performed By: #### U BRENT #### [facility] [address] [place] [address] Dr. Brandi Abarca MCV (RBC) [Entitic vol] 99.1 fL Critically high 81.0-99.0 [facility] Comment on above: Performed By: #### U BRENT #### [facility] [address] [place] [address] Dr. Brandi Abarca MONO # 0.7 103/ul Normal 0.3-0.8 [facility] Comment on above: Performed By: #### U BRENT #### [facility] [address] [place] [address] Dr. Brandi Abarca Monocytes/100 WBC (Bld) 12.0 % Normal 1.7-12.0 [facility] Comment on above: Performed By: #### U BRENT #### [facility] [address] [place] [address] Dr. Brandi Abarca NEUT # 3.8 103/ul Normal 1.4-6.5 [facility] Comment on above: Performed By: #### U BRENT #### [facility] [address] [place] [address] Dr. Brandi Abarca Neutrophils/100 WBC (Bld) 63.8 % Normal 43.0-75.0 [facility] Comment on above: Performed By: #### U BRENT #### [facility] [address] [place] [address] Dr. Brandi Abarca Platelet mean volume (Bld) [Entitic vol] 11.5 fL Normal 9.5-13.5 [facility] Comment on above: Performed By: #### U BRENT #### [facility] [address] [place] [address] Dr. Brandi Abarca PLT 212 103/ul Normal 150-450 [facility] Comment on above: Performed By: #### U BRENT #### [facility] [address] [address] [address] Brandi Abarca RBC 3.47 106/ul Critically low 4.20-5.40 [facility] Comment on above: Performed By: #### U BRENT #### [facility] [address] [place] [address] Dr. Brandi Abarca WBC 5.9 103/ul Normal 4.0-11.0 [facility] Comment on above: Performed By: #### U BRENT #### [facility] [address] [place] [address] Dr. Brandi Abarca GLYCOHEMOGLOBIN A1Con 2022 ADA RECOMMENDATION SEE BELOW Normal [facility] Comment on above: Result Comment: ADA RECOMMENDED LIMIT 4.0 - 6.0 ADA THERAPEUTIC TARGET < 7.0 ACTION SUGGESTED > 7.0 Performed By: #### A 1C #### [facility] [address] [place] [address] Dr. Brandi Abarca Glucose [Mass/Vol] 114 mg/dL Normal [facility] Comment on above: Performed By: #### A 1C #### [facility] [address] [place] [address] Dr. Brandi Abarca HbA1c (Bld) [Mass fraction] 5.6 % Normal 4.5-6.2 [facility] Comment on above: Performed By: #### A 1C #### [facility] [address] [place] [address] Dr. Brandi Abarca MAGNESIUMon 11-11-2022 Magnesium [Mass/Vol] 1.6 mg/dL Critically low 1.8-2.4 [facility] Comment on above: Performed By: #### U BRENT #### [facility] [address] [place], [place] [id number] Dr. Brandi Abarca PROF 14(COMP METB)on 023 Albumin [Mass/Vol] 2.4 g/dL Critically low 3.4-5.0 [facility] Comment on above: Performed By: #### U BRENT #### [facility] [address] [place] [address] Dr. Brandi Abarca Albumin/Globulin [Mass ratio] 0.6 {ratio} Normal [facility] Comment on above: Performed By: #### U BRENT #### [facility] [address] [place] [address] Dr. Brandi Abarca ALP [Catalytic activity/Vol] 82 U/L Normal 46-116 [facility] Comment on above: Performed By: #### U BRENT #### [facility] [address] [place] [address] Dr. Brandi Abarca ALT [Catalytic activity/Vol] 14 U/L Normal 14-59 [facility] Comment on above: Performed By: #### U BRENT #### [facility] [address] [place] [address] Dr. Brandi Abarca Anion gap [Moles/Vol] 9.6 mmol/L Normal [facility] Comment on above: Performed By: #### U BRENT #### [facility] [address] [place] [address] Dr. Brandi Abarca AST [Catalytic activity/Vol] 14 U/L Critically low 15-37 [facility] Comment on above: Performed By: #### U BRENT #### [facility] [address] [place] [address] Dr. Brandi Abarca Bilirubin [Mass/Vol] 0.2 mg/dL Normal 0.2-1.0 [facility] Comment on above: Performed By: #### U BRENT #### [facility] [address] [place] [address] Dr. Brandi Abarca Calcium [Mass/Vol] 8.6 mg/dL Normal 8.5-10.1 [facility] Comment on above: Performed By: #### U BRENT #### [facility] [address] [place] [address] Dr. Brandi Abarca Chloride [Moles/Vol] 103 mmol/L Normal 98-107 [facility] Comment on above: Performed By: #### U BRENT #### [facility] [address] [address] [address] Brandi Abarca CO2 [Moles/Vol] 29.6 mmol/L Normal 21.0-32.0 [facility] Comment on above: Performed By: #### U BRENT #### [facility] [address] [address] [address] Brandi Abarca Creatinine [Mass/Vol] 0.90 mg/dL Normal 0.55-1.02 [facility] Comment on above: Performed By: #### U BRENT #### [facility] [address] [place] [address] Dr. Brandi Abarca EGFR-AF MARSHALLESE >60 Normal >=60 [facility] Comment on above: Performed By: #### U BRENT #### [facility] [address] [address] [address] Brandi Abarca EGFR-NON AF MARSHALLESE 60 mL/min/1.73m2 Normal >=60 [facility] Comment on above: Performed By: #### U BRENT #### [facility] [facility] [address] [place] [address] Dr. Brandi Abarca Globulin (S) [Mass/Vol] 3.9 g/dL Normal [facility] Comment on above: Performed By: #### U BRENT #### [facility] [address] [address] [address] Brandi Abarca Glucose [Mass/Vol] 113 mg/dL Critically high 74-106 [facility] Comment on above: Performed By: #### U BRENT #### [facility] [address] [address] [address] Brandi Abarca Potassium [Moles/Vol] 4.2 mmol/L Normal 3.5-5.1 [facility] Comment on above: Performed By: #### U BRENT #### [facility] [address] [address] [address] Brandi Abarca Protein [Mass/Vol] 6.3 g/dL Critically low 6.4-8.2 Th e [facility] Comment on above: Performed By: #### U BRENT #### [facility] [address] [place] [address] Dr. Brandi Abarca Sodium [Moles/Vol] 138 mmol/L Normal 136-145 [facility] Comment on above: Performed By: #### U BRENT #### [facility] [address] [place] [address] Dr. Brandi Abarca Urea nitrogen [Mass/Vol] 14.0 mg/dL Normal 7.0-18.0 [facility] Comment on above: Performed By: #### U BRENT #### [facility] [address] [place] [address] Dr. Brandi Abarca Urea nitrogen/Creatinine [Mass ratio] 15.6 mg/mg Normal [facility] Comment on above: Performed By: #### U BRENT #### [facility] [address] [place] [address] Dr. Brandi Abarca CBC AUTO DIFFon 11-10-2022 BASO # 0.0 103/ul Normal 0.0-0.1 [facility] Comment on above: Performed By: #### A 1C #### [facility] [address] [place] [address] Dr. Brandi Abarca Basophils/100 WBC (Bld) 0.3 % Normal 0.2-2.0 [facility] Comment on above: Performed By: #### A 1C #### [facility] [address] [place] [address] Dr. Brandi Abarca EO # 0.0 103/ul Normal 0.0-0.7 [facility] Comment on above: Performed By: #### A 1C #### [facility] [address] [place] [address] Dr. Brandi Abarca Eosinophils/100 WBC (Bld) 0.3 % Critically low 0.9-7.0 [facility] Comment on above: Performed By: #### A 1C #### [facility] [address] [place] [address] Dr. Brandi Abarca Erythrocyte distribution width (RBC) [Ratio] 13.7 % Normal 11.0-15.0 [facility] Comment on above: Performed By: #### A 1C #### [facility] [address] [place] [address] Dr. Brandi Abarca Hematocrit (Bld) [Volume fraction] 36.3 % Normal 36.0-48.0 [facility] Comment on above: Performed By: #### A 1C #### [facility] [address] [place] [address] Dr. Brandi Abarca Hemoglobin (Bld) [Mass/Vol] 11.3 g/dL Critically low 12.0-16.0 [facility] Comment on above: Performed By: #### A 1C #### [facility] [address] [place] [address] Dr. Brandi Abarca IG # 0.03 10e3/ul Normal 0.00-0.03 [facility] Comment on above: Performed By: #### A 1C #### [facility] [address] [place] [address] Dr. Brandi Abarca IG % 0.4 % Normal 0.0-0.5 [facility] Comment on above: Performed By: #### A 1C #### [facility] [address] [place] [address] Dr. Brandi Abarca LYMPH # 1.1 103/ul Critically low 1.2-3.8 [facility] Comment on above: Performed By: #### A 1C #### [facility] [address] [place] [address] Dr. Brandi Abarca Lymphocytes/100 WBC (Bld) 15.1 % Critically low 20.5-60.0 [facility] Comment on above: Performed By: #### A 1C #### [facility] [address] [place] [address] Dr. Brandi Abarca MANUAL DIFF REQ NO Normal [facility] Comment on above: Performed By: #### A 1C #### [facility] [address] [place] [address] Dr. Brandi Abarca MCH (RBC) [Entitic mass] 30.6 pg Normal 26.7-34.0 [facility] Comment on above: Performed By: #### A 1C #### [facility] [address] [address] [address] Brandi Abarca MCHC (RBC) [Mass/Vol] 31.1 g/dL Normal 29.9-35.2 [facility] Comment on above: Performed By: #### A 1C #### [facility] [address] [address] [address] Brandi Abarca MCV (RBC) [Entitic vol] 98.4 fL Normal 81.0-99.0 [facility] Comment on above: Performed By: #### A 1C #### [facility] [address] [address] [address] Brandi Abarca MONO # 0.9 103/ul Critically high 0.3-0.8 [facility] Comment on above: Performed By: #### A 1C #### [facility] [address] [address] [address] Brandi Abarca Monocytes/100 WBC (Bld) 11.6 % Normal 1.7-12.0 [facility] Comment on above: Performed By: #### A 1C #### [facility] [address] [place] [address] Dr. Brandi Abarca NEUT # 5.5 103/ul Normal 1.4-6.5 [facility] Comment on above: Performed By: #### A 1C #### [facility] [address] [address] [address] Brandi Abarca Neutrophils/100 WBC (Bld) 72.3 % Normal 43.0-75.0 [facility] Comment on above: Performed By: #### A 1C #### [facility] [address] [address] [address] Brandi Abarca Platelet mean volume (Bld) [Entitic vol] 9.8 fL Normal 9.5-13.5 [facility] Comment on above: Performed By: #### A 1C #### [facility] [address] [address] [address] Brandi Abarca PLT 211 103/ul Normal 150-450 [facility] Comment on above: Performed By: #### A 1C #### [facility] [address] [place], [place] [address] Dr. Brandi Abarca RBC 3.69 106/ul Critically low 4.20-5.40 [facility] Comment on above: Performed By: #### A 1C #### [facility] [address] [place], [place] [address] Dr. Brandi Abarca WBC 7.5 103/ul Normal 4.0-11.0 [facility] Comment on above: Performed By: #### A 1C #### [facility] [address] [place], [place] [address] Dr. Brandi Abarca ECHOCARDIO M/2D COMPLETEon 0 11-10-2022 ECHOCARDIO M/2D COMPLETE Patient: CUATE GOODMAN Exam Date: 11/10/2022 : 1940 Gender:F Ordering : RIYA POSADAS . Admission #: [id number] Family : Order #: [id number] CLICK HERE TO VIEW EXAM ECHOCARDIOGRAM REPORT [...] Moore M.D. on 11/11/2022 at 10:13 Normal [facility] GLYCOHEMOGLOBIN A1Con 2022 ADA RECOMMENDATION SEE BELOW Normal [facility] Comment on above: Result Comment: ADA RECOMMENDED LIMIT 4.0 - 6.0 ADA THERAPEUTIC TARGET < 7.0 ACTION SUGGESTED > 7.0 Performed By: #### U BRENT #### [facility] [address] [place] [address] Dr. Brandi Abarca Glucose [Mass/Vol] 120 mg/dL Normal [facility] Comment on above: Performed By: #### U BRENT #### [facility] [address] [address] [address] Brandi Abarca HbA1c (Bld) [Mass fraction] 5.8 % Normal 4.5-6.2 [facility] Comment on above: Performed By: #### U BRENT #### [facility] [address] [address] [address] Brandi Abarca MAGNESIUMon 11-10-2022 Magnesium [Mass/Vol] 1.6 mg/dL Critically low 1.8-2.4 [facility] Comment on above: Performed By: #### A 1C #### [facility] [address] [address] [address] Brandi Abarca PROF 14(COMP METB)on 023 Albumin [Mass/Vol] 2.6 g/dL Critically low 3.4-5.0 [facility] [place] Comment on above: Performed By: #### U BRENT #### [facility] [address] [place] [address] Dr. Brandi Abarca Albumin/Globulin [Mass ratio] 0.7 {ratio} Normal [facility] Comment on above: Performed By: #### U BRENT #### [facility] [address] [place] [address] Dr. Brandi Abarca ALP [Catalytic activity/Vol] 84 U/L Normal 46-116 [facility] Comment on above: Performed By: #### U BRENT #### [facility] [address] [address] [address] Brandi Abarca ALT [Catalytic activity/Vol] 16 U/L Normal 14-59 [facility] Comment on above: Performed By: #### U BRENT #### [facility] [address] [place] [address] Dr. Brandi Abarca Anion gap [Moles/Vol] 5.4 mmol/L Normal [facility] Comment on above: Performed By: #### U BRENT #### [facility] [address] [place] [address] Dr. Brandi Abarca AST [Catalytic activity/Vol] 15 U/L Normal 15-37 [facility] Comment on above: Performed By: #### U BRENT #### [facility] [address] [address] [address] Brandi Abarca Bilirubin [Mass/Vol] 0.5 mg/dL Normal 0.2-1.0 [facility] Comment on above: Performed By: #### U BRENT #### [facility] [address] [place] [address] Dr. Brandi Abarca Calcium [Mass/Vol] 8.8 mg/dL Normal 8.5-10.1 [facility] Comment on above: Performed By: #### U BRENT #### [facility] [address] [address] [address] Brandi Abarca Chloride [Moles/Vol] 101 mmol/L Normal 98-107 [facility] Comment on above: Performed By: #### U BRENT #### [facility] [address] [address] [address] Brandi Abarca CO2 [Moles/Vol] 33.4 mmol/L Critically high 21.0-32.0 [facility] Comment on above: Performed By: #### U BRENT #### [facility] [address] [address] [address] Brandi Abarca Creatinine [Mass/Vol] 0.85 mg/dL Normal 0.55-1.02 [facility] Comment on above: Performed By: #### U BRENT #### [facility] [address] [address] [address] Brandi Abarca EGFR-AF MARSHALLESE >60 Normal >=60 [facility] Comment on above: Performed By: #### U BRENT #### [facility] [address] [address] [address] Brandi Abarca EGFR-NON AF MARSHALLESE >60 Normal >=60 [facility] Comment on above: Performed By: #### U BRENT #### [facility] [address] [address] [address] Brandi Abarca Globulin (S) [Mass/Vol] 3.9 g/dL Normal [facility] Comment on above: Performed By: #### U BRENT #### [facility] [address] [address] [address] Brandi Abarca Glucose [Mass/Vol] 116 mg/dL Critically high 74-106 [facility] Comment on above: Performed By: #### U BRENT #### [facility] [address] [place] [address] Dr. Brandi Abarca Potassium [Moles/Vol] 3.8 mmol/L Normal 3.5-5.1 [facility] Comment on above: Performed By: #### U BRENT #### [facility] [address] [address] [address] Brandi Abarca Protein [Mass/Vol] 6.5 g/dL Normal 6.4-8.2 [facility] Comment on above: Performed By: #### U BRENT #### [facility] [address] [place] [address] Dr. Brandi Abarca Sodium [Moles/Vol] 136 mmol/L Normal 136-145 [facility] Comment on above: Performed By: #### U BRENT #### [facility] [address] [place] [address] Dr. Brandi Abarca Urea nitrogen [Mass/Vol] 12.0 mg/dL Normal 7.0-18.0 [facility] Comment on above: Performed By: #### U BRENT #### [facility] [address] [place] [address] Dr. Brandi Abarca Urea nitrogen/Creatinine [Mass ratio] 14.1 mg/mg Normal [facility] Comment on above: Performed By: #### U BRENT #### [facility] [address] [place] [address] Dr. Brandi Abarca PTT HEPARIN MONITORon 2022 aPTT Coag (Bld) [Time] 48.7 s Normal 39.5-54.2 [facility] Comment on above: Performed By: #### P TTHEP #### [facility] [address] [place] [address] Dr. Brandi Abarca aPTT Coag (Bld) [Time] 56.6 s Critically high 39.5-54.2 [facility] Comment on above: Performed By: #### A 1C #### [facility] [address] [place] [address] Dr. Brandi Abarca aPTT Coag (Bld) [Time] 51.4 s Normal 39.5-54.2 [facility] Comment on above: Performed By: #### P TTHEP #### [facility] [address] [place] [address] Dr. Brandi Abarca BNPon 11-09-2022 Natriuretic peptide B (Bld) [Mass/Vol] 1702.0 pg/mL Normal <=1,800.0 [facility] Comment on above: Performed By: #### U BRENT #### [facility] [address] [place] [address] Dr. Brandi Abacra Natriuretic peptide B (Bld) [Mass/Vol] 1702.0 pg/mL Normal <=1,800.0 [facility] Comment on above: Performed By: #### H STROPN, BNP, BMP #### [facility] [address] [place] [address] Dr. Brandi Abarca CBC AUTO DIFFon 11-09-2022 BASO # 0.0 103/ul Normal 0.0-0.1 [facility] Comment on above: Performed By: #### A 1C #### [facility] [address] [place] [address] Dr. Brandi Abarca Basophils/100 WBC (Bld) 0.4 % Normal 0.2-2.0 [facility] Comment on above: Performed By: #### A 1C #### [facility] [address] [place] [address] Dr. Brandi Abarca EO # 0.2 103/ul Normal 0.0-0.7 [facility] Comment on above: Performed By: #### A 1C #### [facility] [address] [place] [address] Dr. Brandi Abarca Eosinophils/100 WBC (Bld) 1.8 % Normal 0.9-7.0 [facility] Comment on above: Performed By: #### A 1C #### [facility] [address] [place] [address] Dr. Brandi Abarca Erythrocyte distribution width (RBC) [Ratio] 13.6 % Normal 11.0-15.0 [facility] Comment on above: Performed By: #### A 1C #### [facility] [address] [place] [address] Dr. Brandi Abarca Hematocrit (Bld) [Volume fraction] 38.2 % Normal 36.0-48.0 [facility] Comment on above: Performed By: #### A 1C #### [facility] [address] [place] [address] Dr. Brandi Abarca Hemoglobin (Bld) [Mass/Vol] 12.2 g/dL Normal 12.0-16.0 [facility] Comment on above: Performed By: #### A 1C #### [facility] [address] [place] [address] Dr. Brandi Abarca IG # 0.02 10e3/ul Normal 0.00-0.03 [facility] Comment on above: Performed By: #### A 1C #### [facility] [address] [place] [address] Dr. Brandi Abarca IG % 0.2 % Normal 0.0-0.5 [facility] Comment on above: Performed By: #### A 1C #### [facility] [address] [place] [address] Dr. Brandi Abarca LYMPH # 1.3 103/ul Normal 1.2-3.8 [facility] Comment on above: Performed By: #### A 1C #### [facility] [address] [place] [address] Dr. Brandi Abarca Lymphocytes/100 WBC (Bld) 15.4 % Critically low 20.5-60.0 [facility] Comment on above: Performed By: #### A 1C #### [facility] [address] [place] [address] Dr. Brandi Abarca MANUAL DIFF REQ NO Normal [facility] Comment on above: Performed By: #### A 1C #### [facility] [address] [place] [address] Dr. Brandi Abarca MCH (RBC) [Entitic mass] 30.7 pg Normal 26.7-34.0 [facility] Comment on above: Performed By: #### A 1C #### [facility] [address] [place] [address] Dr. Brandi Abarca MCHC (RBC) [Mass/Vol] 31.9 g/dL Normal 29.9-35.2 [facility] Comment on above: Performed By: #### A 1C #### [facility] [address] [place] [address] Dr. Brandi Abarca MCV (RBC) [Entitic vol] 96.0 fL Normal 81.0-99.0 [facility] Comment on above: Performed By: #### A 1C #### [facility] [address] [place] [address] Dr. Brandi Abarca MONO # 0.7 103/ul Normal 0.3-0.8 [facility] Comment on above: Performed By: #### A 1C #### [facility] [address] [place] [address] Dr. Brandi Abarca Monocytes/100 WBC (Bld) 8.6 % Normal 1.7-12.0 [facility] Comment on above: Performed By: #### A 1C #### [facility] [address] [place] [address] Dr. Brandi Abarca NEUT # 6.0 103/ul Normal 1.4-6.5 [facility] Comment on above: Performed By: #### A 1C #### [facility] [address] [place] [address] Dr. Brandi Abarca Neutrophils/100 WBC (Bld) 73.6 % Normal 43.0-75.0 [facility] Comment on above: Performed By: #### A 1C #### [facility] [address] [place] [address] Dr. Brandi Abarca Platelet mean volume (Bld) [Entitic vol] 9.8 fL Normal 9.5-13.5 [facility] Comment on above: Performed By: #### A 1C #### [facility] [address] [place] [address] Dr. Brandi Abarca PLT 234 103/ul Normal 150-450 [facility] Comment on above: Performed By: #### A 1C #### [facility] [address] [place] [address] Dr. Brandi Abarca RBC 3.98 106/ul Critically low 4.20-5.40 [facility] Comment on above: Performed By: #### A 1C #### [facility] [address] [place] [address] Dr. Brandi Abarca WBC 8.1 103/ul Normal 4.0-11.0 [facility] Comment on above: Performed By: #### A 1C #### [facility] [address] [place] [address] Dr. Brandi Abarca CTA CHEST WO W [...] EYAD FREITAS Date: 2022-11-09 08:23 Normal [facility]18 SARS-CoV-2 (COVID-19) RNA SMILEY+probe Ql (Unsp spec) Not detected Normal NOT DETECTED [facility] Comment on above: Result Comment: This test is not yet approved or cleared by the [place] FDA. When there are no FDA-approved or cleared tests available, and other criteria are met, FDA can make tests available under an emergency access mechanism called an Emergency Use Authorization (EUA). The EUA for this test is supported by the [place] Supervisor of Health and Human Service's (HHS's) declaration [...] consistent with SARS-CoV-2. Performed By: #### C [facility] #### [facility] [address] [address] [address] Brandi Abarca PROF CHEM 8 (BAS METB)on Anion gap [Moles/Vol] 12.2 mmol/L Normal [facility] [place] [facility] Comment on above: Performed By: #### H STROPN, BNP, BMP #### [facility] [address] [place] [address] Dr. Brandi Abarca Calcium [Mass/Vol] 9.0 mg/dL Normal 8.5-10.1 [facility] Comment on above: Performed By: #### H STROPN, BNP, BMP #### [facility] [address] [place] [address] Dr. Brandi Abarca Chloride [Moles/Vol] 103 mmol/L Normal 98-107 [facility] Comment on above: Performed By: #### H STROPN, BNP, BMP #### [facility] [address] [place] [address] Dr. Brandi Abarca CO2 [Moles/Vol] 30.6 mmol/L Normal 21.0-32.0 [facility] Comment on above: Performed By: #### H STROPN, BNP, BMP #### [facility] [address] [place] [address] Dr. Brandi Abarca Creatinine [Mass/Vol] 0.89 mg/dL Normal 0.55-1.02 [facility] Comment on above: Performed By: #### H STROPN, BNP, BMP #### [facility] [address] [place] [address] Dr. Brandi Abarca EGFR-AF MARSHALLESE >60 Normal >=60 [facility] Comment on above: Performed By: #### H STROPN, BNP, BMP #### [facility] [address] [place] [address] Dr. Brandi Abarca EGFR-NON AF MARSHALLESE >60 Normal >=60 [facility] Comment on above: Performed By: #### H STROPN, BNP, BMP #### [facility] [address] [place] [address] Dr. Brandi Abarca Glucose [Mass/Vol] 102 mg/dL Normal 74-106 [facility] Comment on above: Performed By: #### H STROPN, BNP, BMP #### [facility] [address] [address] [address] Brandi Abarca Potassium [Moles/Vol] 3.8 mmol/L Normal 3.5-5.1 [facility] Comment on above: Performed By: #### H STROPN, BNP, BMP #### [facility] [address] [place] [address] Dr. Brandi Abarca Sodium [Moles/Vol] 142 mmol/L Normal 136-145 [facility] Comment on above: Performed By: #### H STROPN, BNP, BMP #### [facility] [address] [place] [address] Dr. Brandi Abarca Urea nitrogen [Mass/Vol] 16.0 mg/dL Normal 7.0-18.0 [facility] Comment on above: Performed By: #### H STROPN, BNP, BMP #### [facility] [address] [place] [address] Dr. Brandi Abarca Urea nitrogen/Creatinine [Mass ratio] 18.0 mg/mg Normal [facility] Comment on above: Performed By: #### H STROPN, BNP, BMP #### [facility] [address] [place] [address] Dr. Brandi Abarca PROTIMEon 11-09-2022 INR Coag (PPP) [Relative time] 1.00 {INR} Normal [facility] Comment on above: Performed By: #### A 1C #### [facility] [address] [place] [address] Dr. Brandi Abarca INR GUIDELINES SEE BELOW Normal [facility] Comment on above: Result Comment: NOVA RED INR: 2.0 - 3.0 CONDITIONS NOT LISTED BELOW 2.5 - 3.5 FOR PROSTHETIC HEART VALVE REPLACEMENT 2.5 - 3.5 RECURRENT THROMBOSIS Performed By: #### A 1C #### [facility] [address] [place] [address] Dr. Brandi Abarca PT Coag (PPP) [Time] 10.6 s Normal 9.0-11.6 [facility] Comment on above: Performed By: #### A 1C #### [facility] [address] [place] [address] Dr. Brandi Abarca PTTon 11-09-2022 aPTT Coag (Bld) [Time] 24.3 s Normal 22.3-36.2 [facility] Comment on above: Performed By: #### A 1C #### [facility] [address] [place] [address] Dr. Brandi Aabrca PTT HEPARIN MONITORon 2022 aPTT Coag (Bld) [Time] 47.3 s Normal 39.5-54.2 [facility] Comment on above: Performed By: #### U BRENT #### [facility] [address] [place] [address] Dr. Brandi Abarca SYMPTOMATIC COVID-19 ANTIGEN on 11-09-2022 EUA Statement SEE BELOW Normal [facility] Comment on above: Result Comment: This test [...] sooner. Performed By: #### C VDAGS #### [facility] [address] [place] [address] Dr. Brandi Abarca SARS-CoV-2 (COVID-19) RNA SMILEY+probe Ql (Unsp spec) Negative Normal NEGATIVE [facility] Comment on above: Performed By: #### C VDAGS #### [facility] [address] [place] [address] Dr. Brandi Abarca TROPONIN, HIGH SENSITIVITYon 11-09-2022 HSTROP 15.6 pg/mL Normal 4.0-51.3 [facility] Comment on above: Result Comment: CUT- OFF POINTS HAVE BEEN ESTABLISHED BASED ON THE FOURTH UNIVERSAL DEFINITIONS OF MYOCARDIAL INFARCTION. THE UPPER REFERENCE LIMIT (URL) OF TROPONIN, DEFINED THE 99TH PERCENTILE OF cTnI DISTRIBUTION IN A REFERENCE POPULATION, HAS BEEN CONFIRMED THE DECISION THRESHOLD FOR GA DIAGNOSIS. Performed By: #### H STROPN #### [facility] [address] [address] [address] Brandi Abarca HSTROP 16.4 pg/mL Normal 4.0-51.3 [facility] Comment on above: Result Comment: CUT- OFF POINTS HAVE BEEN ESTABLISHED BASED ON THE FOURTH UNIVERSAL DEFINITIONS OF MYOCARDIAL INFARCTION. THE UPPER REFERENCE LIMIT (URL) OF TROPONIN, DEFINED THE 99TH PERCENTILE OF cTnI DISTRIBUTION IN A REFERENCE POPULATION, HAS BEEN CONFIRMED THE DECISION THRESHOLD FOR GA DIAGNOSIS. Performed By: #### H STROPN, BNP, BMP #### [facility] [address] [place] [address] Dr. Brandi Abarca URIC ACID SERUMon 11-09-2022 Urate [Mass/Vol] 4.4 mg/dL Normal 2.6-6.0 [facility] Comment on above: Performed By: #### U BRENT #### [facility] [address] [place] [address] Dr. Brandi Abarca XR CHEST 1 Von [...] by: KIMBER MALLOY Date: 2022-11-09 07:22 Normal [facility] Vital Signs Date Time Vital Sign Value Performing Clinician Layo lundy 03-16-2024 15:27-0400 Body height 162.[address] [employer] APRN-TECHNOLOGY SALES CONSULTANT Work Phone: [facility] 03-16-2024 15:27-0400 Body mass index (BMI) [Ratio] 39.82 kg/m2 Ave Mackey APRN-MARGARITA Work Phone: [facility] 03-16-2024 15:27-0400 Body temperature 98.29 [degF] Ave Mackey APRN-TECHNOLOGY SALES CONSULTANT Work Phone: [facility] 03-16-2024 15:27-0400 Body weight 105.[address] Mackey APRN-MARGARITA Work Phone: [facility] 02-23-2024 15:12-0400 Body height 162.6 cm Paige Damon Work Phone: [facility] 02-23-2024 15:12-0400 Body mass index (BMI) [Ratio] 39.82 kg/m2 Paige Damon Work Phone: [facility] 02-23-2024 15:12-0400 Body temperature 98.2 [degF] Paige Damon Work Phone: [facility] 02-23-2024 15:12-0400 Body weight 105.23 kg Paige Damon Work Phone: [facility] 02-11-2024 07:32-0400 Body temperature 97.9 [degF] Mohan Gomez MD Work Phone: [facility] 02-11-2024 07:32-0400 Diastolic blood pressure 57 mm[Hg] Mohan Gomez MD Work Phone: [facility] 02-11-2024 07:32-0400 Heart rate 85 /min Mohan Gomez MD Work Phone: [facility] 02-11-2024 07:32-0400 Respiratory rate 18 /min Mohan Gomez MD Work Phone: [facility] 02-11-2024 07:32-0400 SaO2% (BldA) [Mass fraction] 94 % Mohan Gomez MD Work Phone: [facility] 02-11-2024 07:32-0400 Systolic blood pressure 109 mm[Hg] Mohan Gomez MD Work Phone: [facility] 02-11-2024 04:32-0400 Body mass index (BMI) [Ratio] 39.93 kg/m2 Mohan Gomez MD Work Phone: [facility] 02-11-2024 04:32-0400 Body weight 105.51 kg Mohan Gomez MD Work Phone: [facility] 02-02-2024 11:44-0400 Body height 162.6 cm [employer] Work Phone: [facility] 02-02-2024 11:44-0400 Body mass index (BMI) [Ratio] 41.37 kg/m2 [employer] Work Phone: [facility] 02-02-2024 11:44-0400 Body temperature 98.8 [degF] [employer] Work Phone: [facility] 02-02-2024 11:44-0400 Body weight 109.32 kg [employer] Work Phone: [facility] 01-19-2024 14:50-0400 Body height 162.6 cm Mohan Gomez MD Work Phone: [facility] 01-19-2024 12:50-0400 Body temperature 98.2 [degF] Erik Heredia MD Work Phone: [facility] 01-19-2024 12:50-0400 Diastolic blood pressure 62 mm[Hg] Erik Heredia MD Work Phone: [employer] [facility] 01-19-2024 12:50-0400 Heart rate 89 /min Erik Heredia MD Work Phone: [facility] 01-19-2024 12:50-0400 Respiratory rate 16 /min Erik Heredia MD Work Phone: [facility] 01-19-2024 12:50-0400 SaO2% (BldA) [Mass fraction] 97 % Erik Heredia MD Work Phone: [facility] 01-19-2024 12:50-0400 Systolic blood pressure 137 mm[Hg] Erik Heredia MD Work Phone: [facility] 01-13-2024 10:00-0400 Body mass index (BMI) [Ratio] 37.24 kg/m2 Erik Heredia MD Work Phone: [facility] 01-13-2024 10:00-0400 Body weight 98.4 kg Erik Heredia MD Work Phone: [facility] 01-11-2024 11:55-0400 Body height 162.6 cm Erik Heredia MD Work Phone: [facility] 12-01-2023 14:19-0400 Body height 162.6 cm Erik Heredia MD Work Phone: [facility] 12-01-2023 14:19-0400 Body mass index (BMI) [Ratio] 38.96 kg/m2 Erik Heredia MD Work Phone: [facility] 12-01-2023 14:19-0400 Body weight 102.97 kg Erik Heredia MD Work Phone: [facility] Encounters Encounter Date Encounter Type Care Provider Facility Start: 03-16-2024 End: 03-16-2024 Postop follow up visit related to original px Paige Damon Work Phone: 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 Comment on above: S/P total left hip a rthroplasty (Primary Dx) Start: 02-23-2024 ambulatory PAIGE DAMON [facility] Start: 02-23-2024 End: 02-23-2024 Subsequent hospital visit by physician Paige Damon Work Phone: [facility] Start: 02-02-2024 End: 02-02-2024 Postop follow up visit related to original px Paige Damon Work Phone: [facility] Comment on above: S/P total left hip a rthroplasty (Primary Dx) Start: 02-02-2024 End: 02-02-2024 Subsequent hospital visit by physician Paige Damon Work Phone: [facility] Start: 02-02-2024 [facility] Start: 01-19-2024 End: 02-11-2024 Evaluation and management of inpatient Mohan Gomez MD Work Phone: [facility] Start: 01-11-2024 End: 01-19-[address] [facility] Start: 01-11-2024 End: 01-19-2024 Encounter for other preprocedural examination [facility] Start: 01-11-2024 End: 01-19-2024 Patient encounter status Erik Heredia MD Work Phone: [facility] Start: 01-11-2024 End: 01-19-2024 Subsequent hospital visit by physician Erik Heredia MD Work Phone: [facility] Comment on above: S/P total hip arthro plasty Start: 12-22-2023 End: 12-22-2023 ambulatory [facility] Start: 12-22-2023 End: 12-22-2023 Encounter for other preprocedural examination [facility] Start: 12-16-2023 ambulatory ABHI BALTAZAR [facility] Start: 12-01-2023 End: 12-01-2023 Office outpatient new 60 minutes Erik Heredia MD Work Phone: [facility] Comment on above: Pain of left hip (Pr imary Dx) Start: 12-01-2023 End: 12-01-2023 Subsequent hospital visit by physician Erik Heredia MD Work Phone: [facility] Start: 12-01-2023 ambulatory TRUMAN BOO JR. [facility] Start: 11-03-2023 End: 11-04-2023 ambulatory TRUMAN ARRIAGA Not Available Start: 09-18-2023 End: 09-19-2023 ambulatory TIAN KUHN [facility] Start: 11-09-[address] TIAN KUHN Fac ility:H1 Start: 11-09-2022 End: 11-11-2022 Evaluation and management of inpatient DR TIAN KUHN Facility:[facility]1 Procedures Date Procedure Procedure Detail Performing Clinician Start: 02-11-2024 Basic metabolic pane l calcium total Mohan Gomez MD Work Phone: Start: 02-11-2024 C-reactive protein Lev Moreno MD Work Phone: Start: 02-11-2024 Complete blood count with white cell differential, automated Mhoan Gomez MD Work Phone: Start: 02-10-2024 Basic [...] 02-07-2024 Basic metabolic pane l calcium total Mohan Gomez MD Work Phone: Start: 02-07-2024 C-reactive [...] count complete auto&auto difrntl wbc Ave Mackey CONTRACT SERVICEMAN-TECHNOLOGY SALES CONSULTANT Work Phone: Start: 01-13-2024 Assay of troponin [...] examinati on pelvis 1/[address] APRN-TECHNOLOGY SALES CONSULTANT Work Phone: Start: 01-11-2024 SURGICAL PATHOLOGY REQUEST [...] Activity Detail Author Start: 02-14-2026 Tetanus vaccination [facility] Start: 03-19-2024 Influenza vaccination A [facility] Start: 03-17-2024 End: 03-17-2024 Patient encounter procedure 03/17/2024 10:45 AM EDT Office Visit [facility] [address] [place] [address] Mohan Gomez MD [address] [place] [address] [facility] Start: 03-09-2024 End: 03-09-2024 Patient encounter procedure 03/09/2024 4:00 PM EDT Office Visit [facility] [address] [place] [address] [address] Mackey, CONTRACT SERVICEMAN-TECHNOLOGY SALES CONSULTANT [address] [place] [address] [facility] Start: 02-23-2024 End: 02-23-[address] [facility] Start: 02-23-2024 End: 02-23-2024 Patient encounter procedure 02/23/2024 3:00 PM EDT Office Visit [facility] [address] [facility] [place] [address] Paige Damon [address] [place] [address] [facility] Start: 02-21-2024 End: 02-21-2024 [facility] Start: 02-02-2024 End: 02-02-2024 Patient encounter procedure 02/02/2024 11:30 AM EDT Office Visit [facility] [address] [facility] [address] Paige Damon [address] [place] [address] [address] [facility] Start: 01-10-2024 End: 01-10-2024 Admission to same day surgery center 01/10/2024 6:45 AM EDT - 01/10/2024 8:00 AM EDT Surgery [place] [id number] [place] [address] Erik Heredia MD [address] [place] [address] ARTHROPLASTY HIP TOTAL AL [facility] Comment on above: ARTHROPLASTY HIP TOT AL AL Start: 01-10-2024 End: 01-10-2024 Arthrp acetblr/prox fem prostc agrft/algrft ARTHROPLASTY HIP TOTAL LATERAL APPROACH Osteoarthritis of left hip, unspecified osteoarthritis type 01/10/2024 6:45 AM EDT [facility] Start: 01-10-2024 Subsequent hospital visit by physician 01/10/2024 6:45 AM EDT Hospital Encounter [facility] [address] [place] [address] Erik Heredia MD [address] [place] [address] Osteoarthritis of left hip, unspecified osteoarthritis type [facility] Comment on above: Osteoarthritis of le ft hip, unspecified osteoarthritis type Start: 12-16-2023 End: 12-16-2023 Admission to establishment 12/16/2023 10:00 AM EDT Pre-Operative Nurse Assessment [facility] [address] [place] [address] [facility] Start: 03-19-2023 COVID-19 VACCINE ( season) COVID-19 VACCINE ( season) [facility] Start: 03-19-2023 [facility] Start: 10-17-2008 Pneumococcal vaccination [facility] Start: 2005 Zoster vaccine hzv l cheryl for subcutaneous use ZOSTER (SHINGLES) VACCINE (2 of 3) [facility] Start: 2005 [facility] Start: 2002 RSV VACCINE (1 - 1-d ose 60+ series) RSV VACCINE (1 - 1-dose 60+ series) [facility] Start: 10-11-1987 Screening for malign ant neoplasm of colon [facility] Start: 08-23-1985 Hepatitis B vaccination [facility] Start: 1982 Screening for malign ant neoplasm of breast [facility] Start: 10-11-1963 Screening for malign ant neoplasm of cervix [facility] Start: 1942 Screening for osteoporosis [facility] End: 01-11-2024 XR Hip - left Single view [facility] Comment on above: One Time for 1 Occur rences starting 01/11/2024 until 01/11/2024 XR Pelvis and Hip - left Views XR HIP WITH PELVIS LEFT Imaging Routine Pain of left hip 12/01/2023 2:03 PM EDT [facility] Work Phone: XR Pelvis and Hip - left Views XR HIP WITH PELVIS LEFT Imaging Routine S/P total left hip arthroplasty 02/02/2024 11:31 AM EDT [facility] XR Pelvis and Hip - left Views XR HIP WITH PELVIS LEFT Imaging Routine S/P total left hip arthroplasty 02/23/2024 2:59 PM EDT [facility] XR Pelvis and Hip - left Views XR HIP WITH PELVIS LEFT Imaging Routine Hx of total hip arthroplasty, left 03/16/2024 2:21 PM EDT [facility] Immunizations Immunization Date Immunization Notes Care Provider Fa cili 02-12-2021 influenza virus vaccine, unspecified formulation Erik Heredia MD Work Phone: [facility] 08-15-2005 zoster vaccine, unspecified formulation Erik Heredai MD Work Phone: [facility] Payers Date Payer Category Payer Medicare [id number] 1957 Medicare [id number] 1940 Unknown [id number] 2.16.84 [id number] 1942 Unknown [id number] 2.16.8 40.1.893587.3.579.2.1286 1942 Unknown [id number] 2.16.8 40.1.108256.3.579.2.1286 1942 Unknown [id number] 2.16.8 40.1.005393.3.579.2.1286 1942 Unknown [id number] 2.16.84 0.1.219194.3.579.2.1259 1942 Unknown [id number] 2.16.84 0.1.920672.3.579.2.1259 1942 Unknown [id number] 2.16.8 40.1.374993.3.579.2.983 1942 Unknown [id number] 2.16.8 40.1.579383.3.579.2.983 1942 Unknown [id number] 2.16.8 40.1.185651.3.579.2.983 1942 Unknown [id number] 2.16.8 40.1.547297.3.579.2.983 1942 Unknown [id number] 2.16.8 40.1.439240.3.579.2.983 1942 Unknown [id number] 2.16.8 40.1.650999.3.579.2.983 1942 Unknown [id number] 2.16.8 40.1.040074.3.579.2.983 1942 Unknown [id number] 2.16.8 40.1.295624.3.579.2.983 1942 Unknown [id number] 2.16.8 40.1.798143.3.579.2.983 1942 Unknown [id number] 2.16.8 40.1.675850.3.579.2.983 1942 Unknown [id number] 2.16.8 40.1.487251.3.579.2.983 Social History Date Type Detail Facility Start: 12-01-2023 Tobacco smoking status NHIS Never sm oked tobacco [facility] Start: 12-01-2023 Tobacco use and exposure Smoke less tobacco non-user [facility] Start: 12-01-2023 End: 03-16-2024 Alcoholic beverage intake Lifetime non-drinker (finding) [facility] Start: 12-01-2023 End: 01-21-2024 History of Social function [facility] Start: 12-01-2023 End: 01-21-2024 Tobacco use panel [facility] Start: 1940 Sex assigned at Not on file [employer] Has the [email or web address], or [employer] threatened to shut off services in your home in past 12Mo No [employer] (I/We) worried david er (my/our) food would run out before (I/we) got money to buy more. Never true [employer] In the past 12 month s, has lack of transportation kept you from medical appointments or from getting medications? No [employer] How hard is it for y ou to pay for the very basics like food, housing, medical care, and heating Not very hard [employer] Medical Equipment Procedure Code Equipment Code Equipment Origin al Text Equipment Identifier Dates [id number] Start: 01-11-2024 [id number] Start: 01-11-2024 [id number] Start: 01-11-2024 [id number] Start: 01-11-2024 [id number] Start: 01-11-2024 [id number] Start: 01-11-2024 [id number] Start: 01-11-2024 [id number] Start: 01-11-2024 [id number] Start: 01-11-2024 [id number] Start: 01-11-2024 Clinical Notes 12-01-2023 to 03-16-2024 Alhaji Dickinson, [facility] - 03/16/2024 3:00 PM RENE Coon - 03/16/2024 3:00 PM EDNorma Dickinson, [facility] - 02/23/2024 3:00 PM Tylor Damon [...] 03/16/2024 3:22 PM Patient: Cuate Goodman MR#: [id number] : 1940 Age: 83 y.o. Referring Physician: [...] SUBJECTIVE: Cuate [facility] an [facility] Here today for followup. She is now [...] any questions or concerns in the meantime. (DOC:[id number]) I have reviewed the findings of the clinical client support administrator and agree with their assessment. Ave Mackey APRN-MARGARITA Ortho Nurse - Established Patient Intake Room#: 4 01/11/24 ARTHROPLASTY HIP TOTAL AL left Patient arrives with her grandson in her wheelchair. She is an 83 year old female. She has no complaints and is hoping to move to weight bearing status. Date: 03/16/2024 3:22 PM Patient: Cuate Goodman MR#: [id number] : 1940 Age: 83 y.o. Referring Physician: [...] oxycodone, and penicillins. documented in this encounter [facility] 02-23-2024 History of Presen t illness Narrative [...] 02/23/2024 2:58 PM Patient: Cuate Goodman MR#: [id number] : 1940 Age: 83 y.o. Referring Physician: [...] time. All pertinant portions of the clinical client support administrator documentation was reviewed. Paige Damon I have reviewed the findings of the clinical client support administrator and agree with their assessment. Paige Damon [...] 02/23/2024 2:58 PM Patient: Cuate Goodman MR#: [id number] : 1940 Age: 83 y.o. Referring Physician: [...] oxycodone, and penicillins. documented in this encounter [facility] 02-11-2024 Hospital course Narrative Images from the [...] Dept Phone 02/21/2024 8:45 AM Janet Moreno [facility] Infectious Disease [phone] 02/23/2024 3:[address] [facility] [phone] documented in this encounter [facility] 02-11-2024 Miscellaneous Notes Patient discharged with all belongings via wheelchair by staff to private residence. [employer]vac Residential Service Technician provided patient with AVS. [employer] Residential Service Technician educated patient on entire AVS, including but not limited to, follow-up appointments, prescriptions, home medications (new, continued, and stopped), next med dose due date and times, discharge activity and diet, and discharge education based on diagnoses. Patient verbalized understanding of all AVS education provided by typewriter assembly and parts inspector. Problem: Adult Inpatient Plan of Care Goal: [...] & FWW Patient will demonstrate ability to picker / packer object from the floor with supervision and LRAD in order to promote independence in the home and demonstrate functional balance improvements in the rehabilitation program. Supervision with saw feeder & FWW Patient will perform car transfer [...] discharge to next level of care. Erik uJlio PT Problem: Adult Inpatient Plan of Care [...] setting. NT Patient will demonstrate ability to picker / packer object from the floor with supervision and LRAD in order to promote independence in the home and demonstrate functional balance improvements in the rehabilitation program. SBA to CGA with saw feeder & FWW Patient will perform car transfer [...] and treatment assumed from JANN Welch/L at [facility]. JANN Travis/Karin 01/26/2024 Problem: Adult Inpatient Plan [...] Outcome: Progressing Report received from ALLY Gomez, claims administrator. Patient up in recliner. Awake but drowsy. [...] Optimal Mobility Outcome: Progressing Patient transferred to [facility]. Does not follow TTWB precautions. Becomes upset [...] alarm in place. documented in this encounter [facility] 02-11-2024 Miscellaneous Notes Patient discharged with all belongings via wheelchair by staff to private residence. Hvac Residential Service Technician provided patient with AVS. Hvac Residential Service Technician educated patient on entire AVS, including but not limited to, follow-up appointments, prescriptions, home medications (new, continued, and stopped), next med dose due date and times, discharge activity and diet, and discharge education based on diagnoses. Patient verbalized understanding of all AVS education provided by typewriter assembly and parts inspector. Problem: Adult Inpatient Plan of Care Goal: [...] & FWW Patient will demonstrate ability to picker / packer object from the floor with supervision and LRAD in order to promote independence in the home and demonstrate functional balance improvements in the rehabilitation program. Supervision with saw feeder & FWW Patient will perform car transfer [...] setting. NT Patient will demonstrate ability to picker / packer object from the floor with supervision and LRAD in order to promote independence in the home and demonstrate functional balance improvements in the rehabilitation program. SBA to CGA with saw feeder & FWW Patient will perform car transfer [...] 02/01 [facility] rounding on patient. Problem: Adult [...] and treatment assumed from JANN Welch/Karin at [facility]. YASH Travis 01/26/2024 Problem: Adult Inpatient Plan [...] Outcome: Progressing Report received from ALLY Gomez, claims administrator. Patient up in recliner. Awake but drowsy. [...] up and needs. Also had collaborated with PULLER OVER earlier regarding pt's frequency. Pt would benefit [...] Optimal Mobility Outcome: Progressing Patient transferred to [facility]. Does not follow TTWB precautions. Becomes upset [...] alarm in place. documented in this encounter [facility] 02-11-2024 History of Presen t illness Narrative [...] Date: 01/19/2024 Date of Evaluation: 49:54 PM [facility] LOS: 22 days IMPRESSION AND PLAN: [...] In process LABS Labs-ABGs Labs-CBC @[email or web address]@ Labs-Chem 7([facility]) Bun/Creat/Cl/CO2/Glucose: 19/0.80/105/29/97 (02/10 436) Na/K+/Phos/Mg/Ca: 135/4.3/--/--/8.8 (02/10 [...] bilateral inner thigh areas have improved. 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 Less irritation and pain. Patient was using [...] tablet 5 mg, 5 mg, Oral, Q12H, Mohna Gomez MD, 5 mg at 02/10/24 0842 [...] CARE Score - Sit to Stand 5 Chair/Psq-yr-Hwnqf Transfer Assistance Needed Set-up / clean-up;Adaptive equipment Physical Assistance Level No physical assistance CARE Score - Chair/Nef-ku-Tcyvz Transfer 5 Toilet Transfer Assistance Needed Set-up [...] Date: 01/19/2024 Date of Evaluation: 1:47 PM [facility] LOS: 21 days IMPRESSION AND PLAN: [...] In process LABS Labs-ABGs Labs-CBC @[email or web address]@ Labs-Chem 7([facility]) Bun/Creat/Cl/CO2/Glucose: 20/0.90/104/28/103 (02/08 449) Na/K+/Phos/Mg/Ca: 135/4.5/--/--/9.1 (02/08 [...] progress note SUBJECTIVE History of Present Illness: uCate Goodman 83 y.o. female with a history [...] Date: 01/19/2024 Date of Evaluation: 47:58 PM [facility] LOS: 20 days IMPRESSION AND PLAN: [...] In process LABS Labs-ABGs Labs-CBC @CBCBRIEFROUNDS@ Labs-Chem 7([facility]) Bun/Creat/Cl/CO2/Glucose: 14/0.80/104/30/96 (02/07 450) Na/K+/Phos/Mg/Ca: 133/4.3/--/--/8.9 (02/07 [...] 4 mg, 4 mg, Oral, Q4H PRN, Mohna Gomez MD, 4 mg at 02/05/24 0923 [...] Date: 01/19/2024 Date of Evaluation: 1:21 PM [facility] LOS: 19 days IMPRESSION AND PLAN: [...] 100 mg, 100 mg, Oral, Daily, Mohan Goemz MD, 100 mg at 02/07/24 0907 apixaban [...] BKF, Mohan Gomez MD, 40 mg at 02/07/24 0555 Polyethylene [...] mg, 5 mg, Oral, QHS PRN, Mohan Goemz MD, 5 mg at 02/06/24 2306 Allergies [...] a 83 y.o. female was admitted to [facility] for: 1. S/P total left hip arthroplasty 2. Status post total replacement of left hip Nutrition Assessment Subjective assessment / comments: Pt has been admitted to swing bed for strengthening/rehab needs 2/2 s/p hip arthroplasty by Dr. Heredia. Patient with fair oral intakes noted and mentioned to FNS systems development manager the was getting tired of same menu. [...] (227 lb) 12/01/23 103 kg (227 lb) Nogal body weight: 54.7 kg (120 lb 9.5 [...] WBC 5.1 02/07/2024 RBC 3.23 (L) 02/07/2024 [id number] 16.9 01/20/2024 PMH & PSH: Past Medical [...] B UE in all applicable planes. A: Prakash observed patient not consistently TTWB during standing [...] Transfer Skill: Sit To Stand, Rehab Eval Markle (Sit-Stand Transfers) supervision Physical Assist/Nonphysical Assist: Sit/Stand supervision Weight-Bearing Restrictions: Sit/Stand toe touch weight-bearing Assistive Device For Transfer: Sit/Stand 2 wheeled walker Gait Skills, PT Eval Level of Markle: Gait supervision Physical Assist/Nonphysical Assist: Gait 1 [...] reach. DAILY PROGRESS NOTE Admit Date: 01/19/2024 [facility] LOS: 19 days IMPRESSION AND PLAN: [...] In process LABS Labs-ABGs Labs-CBC @CBCBRIEFROUNDS@ Labs-Chem 7([facility]) Bun/Creat/Cl/CO2/Glucose: 17/0.80/104/29/100 (02/05 453) Na/K+/Phos/Mg/Ca: 135/4.4/--/--/8.6 (02/05 [...] to maintain TTWB on LLE pt ambulated 680pys1 and 75ftx1 with X1 seated rest; pt [...] the wound which is ongoing. 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 No pain reported. No drainage noted. Patient states that she ate very well yesterday as family broad an Episcopal food for her. She did have 1 [...] Daily, Mohan Gomez MD, 325 mg at 02/06/24 0843 hydroCODone-acetaminophen [...] Date: 01/19/2024 Date of Evaluation: 0:47 PM [facility] LOS: 17 days IMPRESSION AND [...] In process LABS Labs-ABGs Labs-CBC @CBCBRIEFROUNDS@ Labs-Chem 7([facility]) Bun/Creat/Cl/CO2/Glucose: 14/0.80/104/30/101 (02/04 525) Na/K+/Phos/Mg/Ca: 135/4.3/--/--/8.8 (02/04 [...] Transfer Skill: Sit To Stand, Rehab Eval Markle (Sit-Stand Transfers) contact guard Physical Assist/Nonphysical Assist: Sit/Stand verbal cues;supervision Transfer Skill: Toilet Transfer, Rehab Eval Assistive Device grab bars;2 wheeled walker Grooming Markle Level (Grooming) grooming skills;hair care, combing/brushing;wash face, hands;contact guard assist (CGA while standing at sink with mod cues to facilitate TTWB.) Physical Assist/Nonphysical Assist supervision;verbal cues Lower Body Dressing Level of Markle contact guard Physical Assist/Nonphysical Assist supervision;verbal cues Assistive Device saw feeder Toileting Level of Markle contact guard Physical Assist/Nonphysical Assist supervision;verbal cues [...] 0 Pt finishing with PRAKASH when this BOBBIN CLEANER HAND arrived; BOBBIN CLEANER HAND observed pt being increasingly rude and aggravated with PRAKASH; pt asked if she needed a break or if she was willing to work with this BOBBIN CLEANER HAND pt stated No! I guess Ill do it now and get it over with but I'm not doing anything that I dont have to; dont ask me to do extra ; therapist asked pt to assist with moving BLE for supine to sit transfer; pt refused to assist and demanded BOBBIN CLEANER HAND to move BLE; therapist provided max assist [...] Gomez MD, 5 mg at 02/05/24 1023 bisacodyl [...] DAILY PROGRESS NOTE ] Admit Date: 01/19/2024 [facility] LOS: 17 days IMPRESSION AND PLAN: [...] In process LABS Labs-ABGs Labs-CBC @CBCBRIEFROUNDS@ Labs-Chem 7([facility]) Bun/Creat/Cl/CO2/Glucose: 18/0.80/104/31/96 (02/03 525) Na/K+/Phos/Mg/Ca: 136/4.4/--/--/8.8 (02/03 [...] shakes Posterior thigh wounds -wound care consulted Jante Moreno MD 02/04/24 1400 Physical Therapy Minutes [...] Date: 01/19/2024 Date of Evaluation: 411:05 PM [facility] LOS: 15 days IMPRESSION AND PLAN: [...] In process LABS Labs-ABGs Labs-CBC @CBCBRIEFROUNDS@ Labs-Chem 7([facility]) Bun/Creat/Cl/CO2/Glucose: 17/0.90/104/29/100 (02/03 552) Na/K+/Phos/Mg/Ca: 135/4.4/--/--/9.1 (02/03 [...] MaxA+2.Attempted to have pt try using leg ux research associate although pt stated I can't when asked [...] with SBA-CGA for balance using FWW and saw feeder with set up while seated. Donned underwear using saw feeder while seated and SBA-CGA to don over waist using FWW. CARE Score - Lower Body Dressing 4 Putting On/Taking Off Footwear Assistance Needed Physical assistance Physical Assistance Level Total assistance Comment Declined use of equipment CARE Score - Putting On/Taking Off Footwear 1 Toileting Hygiene Assistance Needed Incidental touching;Adaptive equipment Comment SBA-CGA using FWW CARE Score - Toileting Hygiene 4 Chair/Pjp-nu-Ihvrw Transfer Assistance Needed Incidental touching;Adaptive equipment Comment SBA-CGA using FWW (initial CGA, as first time standing from chair this AM per pt report) CARE Score - Chair/Fbd-ns-Zmjvj Transfer 4 Toilet Transfer Assistance Needed Incidental [...] tablet, 1 tablet, Oral, Q4H PRN, Mohan oGmez MD, 1 tablet at 02/03/24 0816 hydroCODone-acetaminophen [...] determination is still pending. Cuate agreeable for nephrology social worker to update her once insurance determination is known. CM will continue to follow. MATT Suarez 02/03/2024 8:17 AM DAILY PROGRESS NOTE Admit Date: 01/19/2024 Date of Evaluation: 0:41 PM [facility] LOS: 14 days IMPRESSION AND PLAN: [...] In process LABS Labs-ABGs Labs-CBC @CBCBRIEFROUNDS@ Labs-Chem 7([facility]) Bun/Creat/Cl/CO2/Glucose: 18/0.90/103/30/103 (02/01 514) Na/K+/Phos/Mg/Ca: 134/4.2/--/--/8.9 (02/01 [...] tablet 5 mg, 5 mg, Oral, Daily, Mohna Gomez MD, 5 mg at 02/02/24 0835 [...] Date: 01/19/2024 Date of Evaluation: 49:41 PM [facility] LOS: 13 days IMPRESSION AND PLAN: [...] Surgical Final Report Patient Name: CUATE GOODMAN [facility]. Rec. #: [id number] Physician: ERIK HEREDIA Specimen(s) Received Left femoral [...] articular cartilage degeneration. Sectioning reveals unremarkable bone. Roof Tiler sections are submitted in one cassette and placed in decalcification solution prior to processing. Billing Fee Code(s) A: 82869, 64577 WBC (WHITE BLOOD COUNT) 01/12/2024 10.5 3.6 [...] and . LABS Labs-ABGs Labs-CBC @CBCBRIEFROUNDS@ Labs-Chem 7([facility]) Bun/Creat/Cl/CO2/Glucose: 14/0.90/103/28/98 (01/31 434) Na/K+/Phos/Mg/Ca: 133/4.4/--/--/8.9 (01/31 [...] alarm flashing green and all needs met. LICENSED ESTHETICIAN made aware pt needs assistance with donning [...] wheeled walker;other (see comment) (Pt used leg ux research associate for car transfers.) Gait Assessment Gait Comments [...] Assistance Level No physical assistance Comment using saw feeder pt picked up 4 items off the [...] Date: 01/19/2024 Date of Evaluation: 2:14 AM [facility] LOS: 13 days IMPRESSION AND PLAN: [...] Patient Name: CUATE GOODMAN Med. Rec. #: [id number] Physician: ERIK HEREDIA Specimen(s) Received Left femoral [...] articular cartilage degeneration. Sectioning reveals unremarkable bone. Roof Tiler sections are submitted in one cassette and placed in decalcification solution prior to processing. Billing Fee Code(s) A: 59169, 20362 WBC (WHITE BLOOD COUNT) 01/12/2024 10.5 3.6 [...] and . LABS Labs-ABGs Labs-CBC @CBCBRIEFROUNDS@ Labs-Chem 7([facility]) Bun/Creat/Cl/CO2/Glucose: 06/18.10/102/33/94 (01/31 612) Na/K+/Phos/Mg/Ca: 134/4.5/--/--/8.7 (01/31 [...] OT POC and treatment transferred to JANN Wecl[facility]/Karin at [facility]. YASH Travis 01/31/2024 01/31/24 1415 Physical Therapy [...] Daily, Mohan Gomez MD, 100 mg at 01/31/24 0909 apixaban [...] Date: 01/19/2024 Date of Evaluation: :41 PM [facility] LOS: 11 days IMPRESSION AND PLAN: [...] Surgical Final Report Patient Name: CUATE GOODMAN [facility]. Rec. #: [id number] Physician: ERIK HEREDIA Specimen(s) Received Left femoral [...] articular cartilage degeneration. Sectioning reveals unremarkable bone. Roof Tiler sections are submitted in one cassette and placed in decalcification solution prior to processing. Billing Fee Code(s) A: 28352, 90326 WBC (WHITE BLOOD COUNT) 01/12/2024 10.5 3.6 [...] and . LABS Labs-ABGs Labs-CBC @CBCBRIEFROUNDS@ Labs-Chem 7([facility]) Bun/Creat/Cl/CO2/Glucose: 04/18.00/101/31/93 (01/29 415) Na/K+/Phos/Mg/Ca: 135/4.4/--/--/8.6 (01/29 [...] 1.00 01/30/2024 GLUCOSE 93 01/30/2024 [facility] 02-02-2024 History of Presen t illness Narrative Ortho Nurse - Established Patient Intake Room#: Cast room Patient is an 83 year old female who arrives in a wheel chair for her 3 week follow up after LHTA-AL on 01/11/24. She states she is not in any pain today and states her pain is controlled well. She is using Wheaton codone acetaminophen for pain relief as well as Tylenol prn. Her leg is wrapped instead of JOSAFAT hose and she is using Eliquis for DVT preventation. She is following touch down weight bearing protocol. Date: 02/02/2024 11:34 AM Patient: Cuate Goodman MR#: [id number] : 1940 Age: 83 y.o. Referring Physician: [...] Gomez MD, 5 mg at 02/02/24 0836 [[facility] - Suspended Admission] bisacodyl (DULCOLAX) suppository 10 mg, 10 mg, Rectal, Daily PRN, Mohan Gomez MD [[facility] - Suspended Admission] Cyclobenzaprine (FLEXERIL) tablet 5 mg, 5 mg, Oral, Q12H, Mohan Gomez MD, 5 mg at 02/02/24 0836 [[facility] - Suspended Admission] Docusate (COLACE) capsule 100 mg, 100 mg, Oral, Q12H, Mohan Gomez MD, 100 mg at 02/02/24 0836 [[facility] Hold - Suspended Admission] ferrous sulfate tablet 325 mg, 325 mg, Oral, Daily, Mohan Gomez MD, 325 mg at 02/02/24 0836 [[facility] - Suspended Admission] hydroCODone-acetaminophen (NORCO) 5-325 MG per tablet 1 tablet, 1 tablet, Oral, Q4H PRN, Mohan Gomez MD, 1 tablet at 02/01/24 1016 [Sep - Suspended Admission] hydroCODone-acetaminophen (NORCO) 5-325 MG per tablet 2 tablet, 2 tablet, Oral, Q4H PRN, Mohan Gomez MD, 2 tablet at 02/01/24 2306 [[facility] - Suspended Admission] lactulose (CHRONULAC) oral solution 20 g, 20 g, Oral, TID PRN, Mohan Gomez MD [[facility] - Suspended Admission] Lisinopril (PRINIVIL) tablet 5 mg, 5 mg, Oral, Daily, Mohan Gomez MD, 5 mg at 02/02/24 0835 [[facility] - Suspended Admission] multivitamin tablet 1 tablet, 1 tablet, Oral, Daily, Mohan Gomez MD, 1 tablet at 02/02/24 0835 [[facility] Hold - Suspended Admission] Nystatin (MYCOSTATIN) oral suspension 500,000 Units, 500,000 Units, Swish & Swallow, 4x daily, Janet Moreno MD, 500,000 Units at 02/02/24 0835 [[facility] - Suspended Admission] Ondansetron (ZOFRAN) tablet 4 mg, 4 mg, Oral, Q4H PRN, Mohan Gomez MD, 4 mg at 02/02/24 0840 [[facility] Hold - Suspended Admission] Pantoprazole (PROTONIX) tablet DR 40 mg, 40 mg, Oral, Daily, Mohan Gomez MD, 40 mg at 02/02/24 0836 [[facility] Hold - Suspended Admission] Polyethylene glycol (MIRALAX) packet 17 g, 17 g, Oral, Q12H, Mohan Gomez MD, 17 g at 01/30/242043 [[facility] Hold - Suspended Admission] Polyethylene glycol (MIRALAX) packet 17 g, 17 g, Oral, TID PRN, Mohan Gomez MD [[facility] Hold - Suspended Admission] senna-docusate (SENOKOT-S) 8.6-50 MG per tablet 2 tablet, 2 tablet, Oral, Q12H, Mohan Gomez MD, 2 tablet at 01/30/242043 [[facility] Hold - Suspended Admission] Tolterodine (DETROL-LA) capsule XL 4 mg, 4 mg, Oral, Daily, Mohan Gomez MD, 4 mg at 02/02/2435 [[facility] Hold - Suspended Admission] Zolpidem (AMBIEN) tablet [...] pain today. She is using Tylenol and M[place] for pain control and Eliquis for DVT prophylaxis along with JOSAFAT hose. She reports she is anxious to get home. Of note, Dr. Moreno was [facility] to concerns for SSI with [...] arise. All pertinant portions of the clinical client support administrator documentation was reviewed. Paige Damon I have reviewed the findings of the clinical client support administrator and agree with their assessment. 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 She states she is not in any pain today and states her pain is controlled well. She is using Wheaton codone acetaminophen for pain relief as well as Tylenol prn. Her leg is wrapped instead of JOSAFAT hose and she is using Eliquis for DVT preventation. She is following touch down weight bearing protocol. Date: 02/02/2024 11:34 AM Patient: Cuate Goodman MR#: [id number] : 1940 Age: 83 y.o. Referring Physician: Paige Damon Insurance: Payor: MEDICARE [employer] HMO OR PPO / Plan: MEDICARE [employer] PPO / Product Type: *No Product type* [...] capsule 100 mg 100 mg Oral Q12H oMhan Gomez MD 100 mg at 02/02/24 0836 [...] mg, 650 mg, Oral, Q4H PRN, Mohan Goemz MD, 650 mg at 02/02/24934 [Sep - [...] Gomez MD, 5 mg at 02/02/24 0835 [[facility] Hold - Suspended Admission] multivitamin tablet 1 tablet, 1 tablet, Oral, Daily, Mohan Gomez MD, 1 tablet at 02/02/24 0835 [[facility] Hold - Suspended Admission] Nystatin (MYCOSTATIN) oral suspension 500,000 Units, 500,000 Units, Swish & Swallow, 4x daily, Janet Moreno MD, 500,000 Units at 02/02/24 0835 [[facility] Hold - Suspended Admission] Ondansetron (ZOFRAN) tablet 4 mg, 4 mg, Oral, Q4H PRN, Mohan Gomez MD, 4 mg at 02/02/24 0840 [[facility] Hold - Suspended Admission] Pantoprazole (PROTONIX) tablet DR 40 mg, 40 mg, Oral, Daily, Mohan Gomez MD, 40 mg at 02/02/24 0836 [[facility] Hold - Suspended Admission] Polyethylene glycol (MIRALAX) packet 17 g, 17 g, Oral, Q12H, Mohan Gomez MD, 17 g at 01/30/242043 [[facility] Hold - Suspended Admission] Polyethylene glycol (MIRALAX) packet 17 g, 17 g, Oral, TID PRN, Mohan Gomez MD [[facility] Hold - Suspended Admission] senna-docusate (SENOKOT-S) 8.6-50 MG per tablet 2 tablet, 2 tablet, Oral, Q12H, Mohan Gomez MD, 2 tablet at 01/30/242043 [[facility] Hold - Suspended Admission] Tolterodine (DETROL-LA) capsule XL 4 mg, 4 mg, Oral, Daily, Mohan Gomez MD, 4 mg at 02/02/24 0835 [[facility] Hold - Suspended Admission] Zolpidem (AMBIEN) tablet 5 mg, 5 mg, Oral, QHS PRN, Mohan Gomez MD, 5 mg at 02/01/24 2306 Allergies: She is allergic to morphine, oxycodone, and penicillins. documented in this encounter [facility] 01-21-2024 Consult note Associated Order (s): IP [...] tablet 100 mg, 100 mg, Oral, Daily, Mohna Gomez MD, 100 mg at 01/21/24 0828 [...] g, 20 g, Oral, TID PRN, Mohan Gmoez MD Linezolid (ZYVOX) tablet 600 mg, 600 [...] Janet Moreno MD documented in this encounter [facility] 01-21-2024 Consult note Associated Order (s): IP [...] family if available during consultation process. Janet Morneo MD documented in this encounter [facility] 01-19-2024 History and physical note I saw Cuate Goodman at [facility] Assessment/Plan: 83 y.o. female with history [...] CREATSERUM 0.70 01/13/2024 documented in this encounter [facility] 01-19-2024 History and physical note I saw Cuate Goodman at [facility] Assessment/Plan: 83 y.o. female with history [...] CREATSERUM 0.70 01/13/2024 documented in this encounter [facility] 01-19-2024 Nurse Note AVS given by ALLY, all questions addressed and pt stated understanding. Assessment unchanged and no complaints. Patient taken to swing bed by [facility] transportation. Per request of swing bed IV in right wrist left in flushed and locked with alcohol cap. Paperwork sent with transport and report given. [facility] 01-19-2024 Miscellaneous Notes AVS given by ALLY, [...] Called report to Nisha HERNANDEZ at swing [facility]. Transport set up. Problem: Adult Inpatient Plan [...] change noted from previous assessment by this OPTICIAN unless otherwise detailed in coordinating flow sheets. [...] reach. DEYSI dressing is no longer flashing, typewriter assembly and parts inspector removes it per ortho note. Incision is CDI. Ice pack applied. Remains up in recliner. No change noted from previous assessment by this RN unless otherwise detailed in coordinating flow sheets. PRN ultram given per order for c/o left hip and torso pain. States her dinner order was called in by LICENSED ESTHETICIAN. Denies additional needs at this time, call [...] insurance approval for the Swing Unit [place]. Call haddad in hand. Assessment is complete [...] in bed. Assessment remains unchanged from previous. Hvac Residential Service Technician redresses avril wraps to BLE. Call light [...] this time. Call light is in reach. Hvac Residential Service Technician reviews charting by Madeleine CANALES, typewriter assembly and parts inspector agrees with charting. Patient complains of chest [...] and she startled awake. Patient asked for [place] and was told she was not due [...] Call light is in reach. [address] TECHNOLOGY SALES CONSULTANT rounding. He discussed the quality of her bone from in the OR and the slight intraoperative fracture and the strict precautions including global and TDWB resulting ti the need for a SNF on discharge. Cuate extremely addiment I am not going to a retirement. I'm going home . Ave explained after [...] Pt c/o 10/10 pain to left hip. M[place] given - see MAR. Pt denies any further needs at this time. Call light within reach. Pt assessment remains unchanged with any exceptions noted in flowsheets. Pt is resting in bed, respirations even and unlabored. Fresh ice pack applied to left hip. DEYSI dressing intact and flashing green. Pt c/o 8/10 pain to left hip, [place] given - see MAR. Pt denies any [...] liquid menu with patient. Patient requested lemon umkumiut soda. Soda given. Encouraged patient to try and rest. Family at the bedside. Safety education given. Call light within reach. Bed alarm set. Abductor pillow in place. Ice pack to Left hip POST OPERATIVE/PROCEDURE NOTE Cuate Goodman 83 y.o. female [id number] SURGEON Surgeons and Role: * Erik Heredia MD - Primary ON SITE COORDINATOR RENE Monique ANESTHESIOLOGIST PACK ROOM OPERATOR: JEFFERY Denny SURGICAL STAFF Blind Lacer: Shantell Flood, RN; Rebecca Baltazar, RN; Magdalene Gilbert, RN Nurse Practitioner: RENE Monique Compressor Assembler: Delores German Scrub Person: SALLY Kilgore; Zari [...] Implant Name Type Inv. Item Serial No. Paper And Prints Restorer Lot No. LRB No. Used Action Baring Gription Acetabular Shell Sector 52mm OD [employer] [id number] Left 1 Implanted Baring ALTRX Polyethylene Acetabular Liner Neutral 36mm ID 52mm OD [employer] [id number] Left 1 Implanted Cementralizer Stem Centralizer 10.5mm Cemented [employer] [id number] Left 1 Implanted [place] Femoral Stem 12/14 Taper Cemented Size 5 STD 120mm [employer] [id number] Left 1 Implanted [place] LV 1x40 [id number] Left 1 Implanted [place] LV 1x40 [id number] Left 1 Implanted [place] R 1x40 [id number] Left 1 Implanted Biolox Delta Ceramic Femoral Head +1.5 36mm MERLYN 12/14 Taper [employer] [id number] Left 1 Implanted Suture Hoyt, BioComposite Corkscrew FT,Vented with 1.3mm White/blue and white/black suture tape ARTHREX [id number] Left 1 Implanted Ti Trochanteric Reattachment Device w/Cables/Standard-Ster [employer] [id number] Left 1 Implanted SPECIMENS ID Type Source Tests Collected by Time Destination 1 : Left Femoral head Permanent TISSUE SURGICAL PATHOLOGY REQUEST Erik Heredia MD 01/11/[address], CONTRACT SERVICEMAN-TECHNOLOGY SALES CONSULTANT January 11, 2024 5:48 PM 12/16/23 [id number] Information Source Information Source patient Contact Information Food Science Professor Name Chelsea Menezes RN Living Environment Lives [...] Employment/Financial Employed? Retired Initial Discharge Planning DME (BOBBIN CLEANER HAND) Walker (has FWW) CM met with patient this date to discuss post-surgical discharge plans. Patient states that return home with family assist. Patient has wheeled walker. Patient denies any other questions or needs at this time. CM to continue to follow and assist with discharge plans. documented in this encounter [facility] 01-19-2024 Nurse Note Per patients request called and let contact Sonal daughter know her mother is transferring to swing bed. [facility] 01-19-2024 Nurse Note Called report to Nisha HERNANDEZ at swing bed. Transport set up. [facility] 01-19-2024 Plan of care note Problem: Adult [...] Health and Integrity Outcome: Adequate for Discharge [facility] 01-19-2024 Nurse Note No change noted from previous assessment by this OPTICIAN unless otherwise detailed in coordinating flow sheets. Patient denies any needs at this time. Call light in reach. T [facility] 01-19-2024 Hospital course Narrative Images from the [...] Preop EKG at baseline. Known diastolic dysfunction. Railroad Brakeman did clear her for surgery. She had [...] Surgical Final Report Patient Name: CUATE GOODMAN [facility]. Rec. #: [id number] Physician: ERIK HEREDIA Specimen(s) Received Left femoral head Clinical / Pre-Operative Diagnosis Osteoarthritis of left hip unspecified osteoarthritis type Post-Operative Diagnosis Not provided Surgical Procedure Arthroplasty hip total latera approach Diagnosis: Left femoral head, Excision: -Consistent with degenerative joint disease Electronically Signed [facility]/01/13/2024 Khoa Vieyra DO Gross Description: The specimen is received in formalin, and labeled left gary stacy, Cuate Goodman and date of 1940. The specimen consists of a femoral head and neck measuring 5.5 x 5 x 5 cm with articular cartilage degeneration. Sectioning reveals unremarkable bone. Roof Tiler sections are submitted in one cassette and placed in decalcification solution prior to processing. Billing Fee Code(s) A: 83014, 66332 HEENT: NC/AT, PERRLA, EOMI, fundi benign, external [...] about: Should I take this medication? Follow-up: [place] [address] Follow up [facility] Upcoming Appointments (up to five)-Some appointments for Medical Center outpatient clinics or diagnostic testing locations are not displayed below Provider Department Dept Phone 02/02/2024 11:[address] [facility] [phone] documented in this encounter [facility] 01-19-2024 Nurse Note Talisha Damon CNP updated that patient can be discharged to Swing Bed today. [facility] 01-19-[address] Monte updated that auth came through and pt can be discharged to Swing bed today, No new orders at this time. [facility] 01-19-2024 History of Presen t illness Narrative [...] on commode with use of grab bars. BOBBIN CLEANER HAND assisted pt with removing breif and pts gown noted to be wet. LICENSED ESTHETICIAN called in and assisted pt with gown change. Pt able to void and then pt compelted STS to FWW, Christina x1 and pt able to provide self pericare with this BOBBIN CLEANER HAND providing support with no major LOB noted. Pt then ambulated back into room for approx 10ft and pt states beginning to feel a little dizzy and asking to have bedside chair placed behind pt and then pt transfered to sitting in bedside chair. This BOBBIN CLEANER HAND supporting L LE while reclining chair and [...] Transfer Skill: Sit To Stand, Rehab Eval Markle (Sit-Stand Transfers) minimum assist (75% patient effort) Physical Assist/Nonphysical Assist: Sit/Stand 1 person assist Weight-Bearing Restrictions: Sit/Stand toe touch weight-bearing Assistive Device For Transfer: Sit/Stand 2 wheeled walker Gait Skills, PT Eval Level of Markle: Gait minimum assist (75% patients effort) Physical Assist/Nonphysical Assist: Gait 1 person assist Weight-Bearing Restrictions: Gait toe touch weight-bearing Assistive Device For Transfer: Gait 2 wheeled walker Gait Distance (10ft x2) Gait Analysis, PT Eval Gait Pattern Used swing-to gait Stair Negotiation Markle Level: Stair Negotiation unable to assess Plan [...] this time to adminster medication and this BOBBIN CLEANER HAND assisted pt with placing ice pack on [...] waiting on insurance auth to transfer to [place], this nurse informed that social work has reached out to [facility] to see progress on auth. Will update [...] standing to FWW with Christina x1 and LICENSED ESTHETICIAN providing pt with pericare and placing new brief and purewick catheter. Pt then ambulated approx 8ft out of bathroom and states that she would need the chair placed behind her d/t fatigue. Chair placed behind pt and pt transfered to seated position. MAxA x2 for repositoining pt further back into chair. SCD placed on L LE and ice pack applied to L hip.Gateway rolled placed on lateral side of L LE to promote proper positoining to follow global hip precautions. Pt states feeling very comfortable in this position. Call light left within reach at end of therapy session. Transfer Skill: Sit To Stand, Rehab Eval Markle (Sit-Stand Transfers) minimum assist (75% patient effort) Physical Assist/Nonphysical Assist: Sit/Stand 1 person assist Weight-Bearing Restrictions: Sit/Stand toe touch weight-bearing Assistive Device For Transfer: Sit/Stand 2 wheeled walker Gait Skills, PT Eval Level of Markle: Gait minimum assist (75% patients effort) Physical Assist/Nonphysical Assist: Gait 1 person assist Weight-Bearing Restrictions: Gait toe touch weight-bearing Assistive Device For Transfer: Gait 2 wheeled walker Gait Distance (25ft, 10ft, 8ft) Stair Negotiation Markle Level: Stair Negotiation unable to assess Plan [...] Transfer Skill: Sit To Stand, Rehab Eval Markle (Sit-Stand Transfers) moderate assist (50% patient effort) Physical Assist/Nonphysical Assist: Sit/Stand 1 person assist Weight-Bearing Restrictions: Sit/Stand toe touch weight-bearing Assistive Device For Transfer: Sit/Stand 2 wheeled walker Gait Skills, PT Eval Level of Markle: Gait (Patient refuses to attempt due to [...] time preferred Lower Body Dressing Level of Markle (declned to complete) Clinical Impression Co-evaluation/co-treatment performed? No simultaneous skilled care performed Patient Instruction/Education comments continued education to ensure safe ADL participation and functional transfers; HEP Therapy Frequency 6 times a week (frequency change due to patient making good progress towards goals and awaiting placement for rehab prior to dc home) Therapist Information License # [id number] 01/15/24 0955 Time In/Out Time In 0955 [...] Transfer Skill: Sit To Stand, Rehab Eval Markle (Sit-Stand Transfers) minimum assist (75% patient effort) Physical Assist/Nonphysical Assist: Sit/Stand 1 person assist Weight-Bearing Restrictions: Sit/Stand toe touch weight-bearing Assistive Device For Transfer: Sit/Stand 2 wheeled walker Gait Skills, PT Eval Level of Markle: Gait minimum assist (75% patients effort) Physical [...] on global hip precautions Maintain frequency yes PIE DOUGH ROLLER spoke with Swing Bed. Insurance authorization still pending. PIE DOUGH ROLLER met with patient and son, questions answered. PIE DOUGH ROLLER to follow. 01/14/24 0830 Time In/Out Time [...] Pt with extended time on commode with LICENSED ESTHETICIAN providing pt with changing purewick and changing [...] Transfer Skill: Sit To Stand, Rehab Eval Markle (Sit-Stand Transfers) minimum assist (75% patient effort) Physical Assist/Nonphysical Assist: Sit/Stand 1 person assist Weight-Bearing Restrictions: Sit/Stand toe touch weight-bearing Assistive Device For Transfer: Sit/Stand 2 wheeled walker Gait Skills, PT Eval Level of Markle: Gait minimum assist (75% patients effort) Physical Assist/Nonphysical Assist: Gait 1 person assist Weight-Bearing Restrictions: Gait toe touch weight-bearing Assistive Device For Transfer: Gait 2 wheeled walker Gait Distance (10ft x2) Gait Analysis, PT Eval Gait Pattern Used swing-to gait Stair Negotiation Markle Level: Stair Negotiation unable to assess Plan [...] with Christina x2 with pt using leg ux research associate on L LE with good technique demonstrated [...] Supine to Sit, Rehab Eval Level of Markle: Supine/Sit minimum assist (75% patients effort) (leg ux research associate on L LE) Physical Assist/Nonphysical Assist: Supine/Sit 2 person assist Transfer Skill: Sit To Stand, Rehab Eval Markle (Sit-Stand Transfers) minimum assist (75% patient effort) Physical Assist/Nonphysical Assist: Sit/Stand 2 person assist Weight-Bearing Restrictions: Sit/Stand toe touch weight-bearing Assistive Device For Transfer: Sit/Stand 2 wheeled walker Gait Skills, PT Eval Level of Markle: Gait minimum assist (75% patients effort) Physical Assist/Nonphysical Assist: Gait 2 person assist Weight-Bearing Restrictions: Gait toe touch weight-bearing Assistive Device For Transfer: Gait 2 wheeled walker Gait Distance 5 feet (chair to bed) Gait Analysis, PT Eval Gait Pattern Used swing-to gait Stair Negotiation Markle Level: Stair Negotiation unable to assess Plan [...] Sit to Supine, Rehab Eval Level of Markle: Sit/Supine maximum assist (25% patients effort) Physical Assist/Nonphysical Assist: Sit/Supine 2 person assist Transfer Skill: Sit To Stand, Rehab Eval Markle (Sit-Stand Transfers) minimum assist (75% patient effort) Physical Assist/Nonphysical Assist: Sit/Stand 2 person assist Weight-Bearing Restrictions: Sit/Stand toe touch weight-bearing Assistive Device For Transfer: Sit/Stand standard walker Gait Skills, PT Eval Level of Markle: Gait minimum assist (75% patients effort) Physical [...] to progress overall mobility Patient referral to [place] was faxed, waiting on that swing bed in [place] called and has a bed open, spoke [...] Orders Procedures DIET REGULAR Please provide one [place] Ensure Max over ice at 1430 daily [...] swing bed, no beds available , contacted [facility] per patients request and no beds available there. Daughter ten did recommend the [facility] in [facility], I did reach out to them and [...] Laterality: Left; Surgeon: Erik Heredia MD; Location: [facility] OR NEPHRECTOMY Right 1978 CHOLECYSTECTOMY HIP REPLACEMENT [...] Supine to Sit, Rehab Eval Level of Markle: Supine/Sit moderate assist (50% patients effort) Physical Assist/Nonphysical Assist: Supine/Sit 1 person assist Transfer Skill: Sit To Stand, Rehab Eval Markle (Sit-Stand Transfers) moderate assist (50% patient effort) Physical Assist/Nonphysical Assist: Sit/Stand 2 person assist Weight-Bearing Restrictions: Sit/Stand toe touch weight-bearing Assistive Device For Transfer: Sit/Stand standard walker Gait Skills, PT Eval Level of Markle: Gait minimum assist (75% patients effort) Physical [...] educated on hip precautions, use of leg ux research associate and weight bearing status. Pt educated to [...] Muscle Testing (MMT) Dominant Hand right Hand Poultry Processor, Right moderate Hand Poultry Processor, Left moderate Bed Mobility Skill: Supine to Sit, Rehab Eval Level of Markle: Supine/Sit minimum assist (75% patients effort) Physical Assist/Nonphysical Assist: Supine/Sit 1 person assist Transfer Skill: Sit to Stand, Rehab Eval Level of Markle: Sit/Stand moderate assist (50% patients effort) Physical Assist/Nonphysical Assist: Sit/Stand 2 person assist Weight-Bearing Restrictions: Sit/Stand toe touch weight-bearing Assistive Device for Transfer: Sit/Stand standard walker Transfer Skill: Toilet Transfer, Rehab Eval Assistive Device standard walker BADL Evaluation Additional Documentation Yes Upper Body Dressing Level of Markle minimum assist (75% patients effort) Lower Body Dressing Level of Markle (refused to practice) Toileting Level of Markle (refused, reports wanting to use purwick only) Grooming Markle Level (Grooming) grooming skills;wash face, hands;set up [...] sit min A x1 person, with leg ux research associate and head of bead elevated. Pt able [...] and functional transfers Therapist Information License # [id number] Pt will complete LB dressing with min [...] WITH DR HEREDIA. documented in this encounter [facility] 01-19-2024 Nurse Note Patient resting in bed. Assessment remains unchanged from previous. Call light is within reach. [facility] Note Pt resting in the chair. Assessment remains unchanged from previous. Pt's SPO2 is 84% on room air, so patient is put on 2L nasal cannula and SPO2 is now 90%. Call light is within reach. [facility] Nurse Note DEYSI dressing is no longer flashing, typewriter assembly and parts inspector removes it per ortho note. Incision is CDI. Ice pack applied. [facility] 01-18-2024 Nurse Note Remains up in recliner. No change noted from previous assessment by this RN unless otherwise detailed in coordinating flow sheets. PRN ultram given per order for c/o left hip and torso pain. States her dinner order was called in by LICENSED ESTHETICIAN. Denies additional needs at this time, call light in reach, recliner wheels locked. [facility] 01-18-2024 Plan of care note Problem: Adult Inpatient Plan of Care Goal: Plan of Care Review Outcome: Progressing Goal: Patient-Specific Goal (Individualized) Outcome: Progressing Goal: Absence of Hospital-Acquired Illness or Injury Outcome: Progressing Goal: Optimal Comfort and Wellbeing Outcome: Progressing Goal: Readiness for Transition of Care Outcome: Progressing Problem: Skin Injury Risk Increased Goal: Skin Health and Integrity Outcome: Progressing [facility] 01-18-2024 Nurse Note Remains up in recliner. No change noted from previous assessment by this RN unless otherwise detailed in coordinating flow sheets. Denies additional needs at this time, call light in reach, recliner wheels locked. [facility] 01-18-2024 Consult note Formatting of th is note is different from the original. Medical consultation Patient is a week postop total hip arthroplasty. No new complaints. Pain is adequately controlled. Therapy is progressing. Awaiting approval from insurance for swing bed. Known right bundle branch block. Preop EKG at baseline. Known diastolic dysfunction. Railroad Brakeman did clear her for surgery. She had [...] Surgical Final Report Patient Name: CUATE GOODMAN [facility]. Rec. #: [id number] Physician: ERIK HEREDIA Specimen(s) Received Left femoral [...] articular cartilage degeneration. Sectioning reveals unremarkable bone. Roof Tiler sections are submitted in one cassette and placed in decalcification solution prior to processing. Billing Fee Code(s) A: 68239, [id number] HEENT: NC/AT, PERRLA, EOMI, fundi benign, external [...] minutes total time. Luis Monte MD 01/18/2024 [facility] 01-18-2024 Consult note Formatting of th is note is different from the original. Medical consultation Patient is a week postop total hip arthroplasty. No new complaints. Pain is adequately controlled. Therapy is progressing. Awaiting approval from insurance for swing bed. Known right bundle branch block. Preop EKG at baseline. Known diastolic dysfunction. Railroad Brakeman did clear her for surgery. She had [...] Patient Name: CUATE GOODMAN Med. Rec. #: [id number] Physician: ERIK HEREDIA Specimen(s) Received Left femoral [...] articular cartilage degeneration. Sectioning reveals unremarkable bone. Roof Tiler sections are submitted in one cassette and placed in decalcification solution prior to processing. Billing Fee Code(s) A: 90078, 61452 HEENT: NC/AT, PERRLA, EOMI, fundi benign, external [...] Preop EKG at baseline. Known diastolic dysfunction. Railroad Brakeman did clear her for surgery. She had [...] Surgical Final Report Patient Name: CUATE GOODMAN [facility]. Rec. #: [id number] Physician: ERIK HEREDIA Specimen(s) Received Left femoral [...] articular cartilage degeneration. Sectioning reveals unremarkable bone. Roof Tiler sections are submitted in one cassette and placed in decalcification solution prior to processing. Billing Fee Code(s) A: 57545, 26768 HEENT: NC/AT, PERRLA, EOMI, fundi benign, external [...] Preop EKG at baseline. Known diastolic dysfunction. Railroad Brakeman did clear her for surgery. She had [...] Preop EKG at baseline. Known diastolic dysfunction. Railroad Brakeman did clear her for surgery. She had [...] optimized by her primary care provider and superintendent board mill. Preop testing notable for an INR of [...] Preop EKG at baseline. Known diastolic dysfunction. Railroad Brakeman did clear her for surgery. She had [...] Partner Violence: Unknown (09/09/2023) Received from [facility] Environment Fear of Current or [...] Monte MD 01/11/2024 documented in this encounter [facility] 01-18-2024 Nurse Note Laying in recliner upon this RN arrival to patient room, resting quietly with eyes closed, respirations even and unlabored. Arouses easily to voice, appropriate to conversation. Shift assessment initiated, detailed in coordinating flow sheets. Denies additional needs at this time, call light in reach, recliner wheels locked. [facility] 01-18-2024 Plan of care note Problem: Adult Inpatient Plan of Care Goal: Plan of Care Review Outcome: Progressing Goal: Patient-Specific Goal (Individualized) Outcome: Progressing Goal: Absence of Hospital-Acquired Illness or Injury Outcome: Progressing Goal: Optimal Comfort and Wellbeing Outcome: Progressing Goal: Readiness for Transition of Care Outcome: Progressing Problem: Skin Injury Risk Increased Goal: Skin Health and Integrity Outcome: Progressing [facility] 01-18-2024 Nurse Note Patient's assessment remains unchanged from previous assessment this shift, any exceptions noted in flowsheets. Patient resting comfortably in chair, declines any needs at this time. Call light within reach,chair alarm active [facility] 01-17-2024 Consult note Formatting of th is [...] Preop EKG at baseline. Known diastolic dysfunction. Railroad Brakeman did clear her for surgery. She had [...] Surgical Final Report Patient Name: CUATE GOODMAN [facility]. Rec. #: [id number] Physician: ERIK HEREDIA Specimen(s) Received Left femoral [...] articular cartilage degeneration. Sectioning reveals unremarkable bone. Roof Tiler sections are submitted in one cassette and placed in decalcification solution prior to processing. Billing Fee Code(s) A: 93531, 88561 HEENT: NC/AT, PERRLA, EOMI, fundi benign, external [...] minutes total time. Luis Monte MD 01/17/2024 [facility] 01-17-2024 Nurse Note The top of the right foot is no longer red. Cuate has brisk cap refill on both lower extremities. An avril wrap was applied to Cuate right lower extremity from the toes to her knee. She is currently denying pain. She is watching TV and is pleasant. She is still awaiting insurance approval for the Swing Unit in [place]. Call haddad in hand. [facility] 01-17-2024 Nurse Note Assessment is complete and remains unchanged from previous at this time with any exceptions noted in the flowsheet. Patient denies further needs and is left with call light and personals in reach. [facility] 01-17-2024 Nurse Note Assessment is complete and remains unchanged from previous at this time with any exceptions noted in the flowsheet. Patient denies further needs and is left with call light and personals in reach. [facility] 01-17-2024 Nurse Note Resting in chair. Assessment unchanged from earlier. Call light in reach. [facility] 01-16-2024 Nurse Note Patient remains resting in recliner chair beside of bed. Voices no needs. Was medicated earlier for pain. Assessment unchanged from previous. Ice maintained to left hip. Call light in reach. [facility] 01-16-2024 Plan of care note Problem: Skin Injury Risk Increased Goal: Skin Health and Integrity Outcome: Progressing Intervention: Optimize Skin Protection Flowsheets Taken 01/16/2024 1634 by Elysia Green RN Activity Management: activity adjusted per tolerance Taken 01/16/2024 1600 by Olesya Lopez LPN Head of Bed (HOB) Positioning: (in chair) other (see comments) Taken 01/16/2024 0430 by Reynaldo oCol RN Pressure Reduction Techniques: frequent weight shift encouraged Pressure Reduction Devices: pressure-redistributing mattress utilized Skin Protection: incontinence pads utilized Intervention: Promote and Optimize Oral Intake Flowsheets (Taken 01/14/2024 1630) Oral Nutrition Promotion: rest periods promoted Nutrition Interventions: diet adjusted [facility] 01-16-2024 Nurse Note Afternoon assessment completed. No changes noted. Patient resting with no complaints. Call light and phone within reach. [facility] 01-16-2024 Nurse Note No change noted from previous assessment by this RN unless otherwise detailed in coordinating flow sheets. Patient denies any needs at this time. [facility] 01-16-2024 Nurse Note Assessment unchanged from prior unless otherwise charted. Patient resting in bed, call light within reach, Up In Chair, Patient denies any current needs at this time. [facility] 01-15-2024 Plan of care note Problem: Skin [...] rest periods promoted Nutrition Interventions: diet adjusted [facility] 01-15-2024 Nurse Note Afternoon assessment completed. No changes noted. Patient resting in the chair with no complaints. Call light and phone within reach. [facility] 01-15-2024 Nurse Note No change noted from previous assessment by this RN unless otherwise detailed in coordinating flow sheets. Patient denies any needs at this time. [facility] 01-15-2024 Nurse Note Pt assessment remains unchanged with any exceptions noted in flowsheets. Pt is resting in the recliner chair, respirations even and unlabored. Fresh ice pack applied to left hip. DEYSI dressing intact and flashing green. Pt c/o 7/10 pain to left hip with spasms. Tramadol given - see SEP. Pt denies any further needs at this time. Call light within reach. [facility] 01-15-2024 Nurse Note Pt assessment remains unchanged with any exceptions noted in flowsheets. Pt appears to be sleeping, respirations even and unlabored. Call light within reach. [facility] 01-14-2024 Nurse Note Pt assessment complete and documented in flowsheets. POC reviewed with pt. Pt is alert, respirations even and unlabored. No acute distress observed. Fresh ice pack applied to left hip. DEYSI dressing intact and flashing green. Pt c/o 8 pain to left hip. Tramadol given - see MAR. Pt denies any further needs at this time. Call light within reach. [facility] 01-14-2024 Plan of care note Problem: Skin [...] rest periods promoted Nutrition Interventions: diet adjusted [facility] 01-14-2024 Nurse Note Afternoon assessment completed. No changes noted. Patient resting with no complaints. Call light and phone within reach. [facility] 01-14-2024 Nurse Note No change noted from previous assessment by this RN unless otherwise detailed in coordinating flow sheets. Patient denies any needs at this time. [facility] 01-14-2024 Nurse Note Pt resting in chair. Assessment remains unchanged from previous. Call light is within reach, SCDs are on. [facility] 01-14-2024 Nurse Note Pt resting in bed. Assessment remains unchanged from previous. Hvac Residential Service Technician redresses avril wraps to BLE. Call light is within reach and bed alarm is on. [facility] 01-13-2024 Nurse Note Updates given to daughter Sonal. She denies any questions or concerns. [facility] 01-13-2024 Consult note Formatting of th is [...] Preop EKG at baseline. Known diastolic dysfunction. Railroad Brakeman did clear her for surgery. She had [...] minutes total time. Luis Monte MD 01/13/2024 [facility] 01-13-2024 Nurse Note No changes noted from previous assessment by this RN except what is detailed in coordinating flow sheets. Patient denies needs at this time. Call light is in reach. [facility] Nurse Note Patient denies any pain at this time. Patient denies need for pain medication and states she will call whenever she needs them. Med ULLOA at bedside. No changes noted from previous assessment by this RN except what is detailed in coordinating flow sheets. Patient denies needs at this time. Call light is in reach. [facility] 01-13-[facility]24 Nurse Note Voicemail left for Dr. [...] this time. Call light is in reach. [facility] 01-13-2024 Nurse Note Hvac Residential Service Technician reviews charting by Madeleine CANALES, typewriter assembly and parts inspector agrees with charting. [facility] 01-13-2024 Nurse Note Patient complains of chest pain she describes it as pressure that is moving left. She states it feels like how it fells when I get indigestion . Dr. Monte notified. New orders received. [facility] 01-13-2024 Nurse Note Reassessment complete at this time and remains unchanged from previous. Patient states I slept really well last night. I think the Tramadol helped a lot. Patient rates pain 5/10 and 8/10 with spasms, movement. Patient DEYSI flashing green. Patient denies further needs and is left with call light and personals within reach. [facility] 01-13-2024 Nurse Note Reassessment complete at this time. Patient states Pain is much better. Patient denies any further needs and is left with call light and personals within reach. [facility] 01-12-2024 Consult note Formatting of th is [...] Preop EKG at baseline. Known diastolic dysfunction. Railroad Brakeman did clear her for surgery. She had [...] minutes total time. Luis Monte MD 01/12/2024 [facility] 01-12-2024 Nurse Note Assessment complete at this time with any exceptions noted in the flowsheets. Patient was snoring upon this nurse entering the room. Patient did not awaken to verbal stimulation. This nurse touched patients arm in an attempt to awaken her. Patient was still snoring. This nurse rubbed patient and she startled awake. Patient asked for [place] and was told she was not due for two more hours. Patient agreeable to wait. Patient denies further needs and is left with call light and personals within reach. [facility] 01-12-2024 Nurse Note Patient son's Mat at bedside at this time. This RN questioned if the patient would like PRN pain medication, patient states I'll call you when I want them . Denies needs at this time, call light within reach. [facility] 01-12-2024 Nurse Note No changes noted from previous assessment by this RN except what is detailed in coordinating flow sheets. Patient denies needs at this time. Call light is in reach. [facility] 01-12-2024 Nurse Note Bilaterally AVRIL wrap applied to lower legs with MARY Mcgee at this time per Randell AVILA. [facility] 01-12-2024 Hospital Discharg e instructions Katlyn Zimmer [...] PM EDT Dr. Heredia's office number is [phone], option #2 for the nurse. If after hours, please contact the main hospital number, and ask for Dr. Heredia's on-call provider. Contact Office ([phone]) if: > Any falls or injuries > [...] be sent through Care Everywhere.acetaminophen and hydrocodone ([place])acetaminophen (oral) ([place])docusate (oral/rectal) ([place])apixaban ([place]an)Blood Thinners: How to Prevent Bleeding ([facility]) ([place])documented in this encounter [facility] 01-12-2024 Nurse Note No changes noted from previous assessment by this RN except what is detailed in coordinating flow sheets. Patient denies needs at this time. Call light is in reach. [facility] 01-12-[address] Mackey TECHNOLOGY SALES CONSULTANT rounding. He discussed the quality of her bone from in the OR and the slight intraoperative fracture and the strict precautions including global and TDWB resulting ti the need for a SNF on discharge. Cuate extremely addiment I am not going to a retirement. I'm going home . Ave explained after PT/OT evaluation today we might to had an additional conversation. Cuate looks to be upset over this visit at this time. The plan for nursing will be to now allow PT/OT to evaluate and clear explain options on discharge. [facility] 01-12-2024 Nurse Note Pt assessment remains unchanged with any exceptions noted in flowsheets. Pt is resting in bed, respirations even and unlabored. Fresh ice pack applied to left hip. DEYSI dressing intact and flashing green. Pt c/o 10/10 pain to left hip. [place] given - see MAR. Pt denies any further needs at this time. Call light within reach. [facility] 01-11-2024 Nurse Note Pt assessment remains unchanged with any exceptions noted in flowsheets. Pt is resting in bed, respirations even and unlabored. Fresh ice pack applied to left hip. DEYSI dressing intact and flashing green. Pt c/o 8/10 pain to left hip, [place] given - see MAR. Pt denies any further needs at this time. Call light within reach. [facility] 01-11-2024 Nurse Note Pt assessment complete and [...] at this time. Call light within reach. [facility] 01-11-2024 Progress note Formatting of t his note might be different from the original. Pt nauseated at this time IS not done RN aware and will give medication for nausea and then instruct pt. [facility] 01-11-2024 Consult note Associated Order (s): IP CONSULT TO GENERAL MEDICINE Medical consultation Patient is an 83-year-old female who presents for total hip arthroplasty. 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 Preop testing notable for an INR of [...] Preop EKG at baseline. Known diastolic dysfunction. Railroad Brakeman did clear her for surgery. She had [...] Violence: Unknown (09/09/2023) Received from [facility] [place] Safety & Environment Fear of Current [...] minutes total time. Luis Monte MD 01/11/2024 [facility] 01-11-2024 Nurse Note Patient returned to floor [...] liquid menu with patient. Patient requested lemon umkumiut soda. Soda given. Encouraged patient to try and rest. Family at the bedside. Safety education given. Call light within reach. Bed alarm set. [facility] 01-11-2024 Nurse Note Abductor pillow in place. Ice pack to Left hip [facility] 01-11-2024 Nurse Note Patient transported to PACU with Chava PATHAK. Reports given to Nely HERNANDEZ at 1759H. OR 4 temp 67.2F, humidity 40% documented in this encounter [facility] 01-11-2024 Nurse Surgical operation note Patient transported to PACU with Chava PATHAK. Reports given to Nely HERNANDEZ at 1759H. [facility] 01-11-2024 Surgery Postoperative evaluation and management note POST OPERATIVE/PROCEDURE NOTE Cuate Goodman 83 y.o. female [id number] SURGEON Surgeons and Role: * Erik Heredia MD - Primary ON SITE COORDINATOR Ave Mackey APRN-MARGARITA ANESTHESIOLOGIST PACK ROOM OPERATOR: Chava Linares APRN-ZO SURGICAL STAFF Blind Lacer: Shantell Flood RN; Rebecca Baltazar RN; Magdalene Gilbert RN Nurse Practitioner: RENE Monique Compressor Assembler: Delores German Scrub Person: Jolene Sanchez, SALLY; [...] Implant Name Type Inv. Item Serial No. Paper And Prints Restorer Lot No. LRB No. Used Action Baring Gription Acetabular Shell Sector 52mm OD [employer] [id number] Left 1 Implanted Baring ALTRX Polyethylene Acetabular Liner Neutral 36mm ID 52mm OD [employer] [id number] Left 1 Implanted Cementralizer Stem Centralizer 10.5mm Cemented [employer] [id number] Left 1 Implanted [place] Femoral Stem 12/14 Taper Cemented Size 5 STD 120mm [employer] [id number] Left 1 Implanted [place] LV 1x40 [id number] Left 1 Implanted [place] LV 1x40 [id number] Left 1 Implanted [place] R 1x40 [id number] Left 1 Implanted Biolox Delta Ceramic Femoral Head +1.5 36mm MERLYN 12/14 Taper [employer] [id number] Left 1 Implanted Suture Hoyt, BioComposite Corkscrew FT,Vented with 1.3mm White/blue and white/black suture tape ARTHREX [id number] Left 1 Implanted Ti Trochanteric Reattachment Device w/Cables/Standard-Ster [employer] [id number] Left 1 Implanted SPECIMENS ID Type Source Tests Collected by Time Destination 1 : Left Femoral head Permanent TISSUE SURGICAL PATHOLOGY REQUEST Erik Heredia MD 01/11/2024 1610 RENE Monique January 11, 2024 5:48 PM [facility] 01-11-2024 Nurse Surgical operation note OR 4 temp 67.2F, humidity 40% T [facility] 01-11-2024 Note Shantell Dasilva RN 01/10 12:34 [...] and locked. [X] Tray table within reach. [facility] 01-11-2024 Procedure note Associated Ord er(s): GENERAL [...] locked. [X] Tray table within reach. T [facility] 01-11-2024 Procedure note Associated Ord er(s): GENERAL [...] table within reach. documented in this encounter [facility] 12-22-2023 Note [facility] Note Reason for cardiology [...] bundle branch block. Echocardiographic study 11/19/2022 at [facility] Normal left ventricle systolic function, ejection fraction 50 to 55%, abnormal septal motion, diastolic function is indeterminate Right ventricle appears enlarged with preserved systolic function Mild mitral regurgitation Mild tricuspid rotation Moderately elevated right-sided pressure Mildly dilated ascending aorta 4.21 cm Echo 05/17/2020 at [facility] Normal left ventricle systolic function, ejection fraction above 55% Grade 2 diastolic dysfunction Mild mitral rotation Lexiscan nuclear stress test 05/15/2020 at [facility] No acute or reversible ischemia Small anterior wall fixed defect versus breast attenuation artifact Normal wall motion and ejection fraction 65%. Thank you Chest CTA 11/09/2022 at [facility] Small pulmonary embolus w (more content not included)... [facility] 12-16-2023 Nurse Note 12/16/23 8716 Information Source Information Source patient Contact Information Food Science Professor Name Chelsea Menezes RN Living Environment Lives [...] Employment/Financial Employed? 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 Patient states that return home with family assist. Patient has wheeled walker. Patient denies any other questions or needs at this time. CM to continue to follow and assist with discharge plans. [facility] 12-01-2023 History of Presen t illness Narrative [...] 12/01/2023 2:14 PM Patient: Cuate Goodman MR#: [id number] : 1940 Age: 83 y.o. 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 PHYSICAL EXAM: This is an alert, [...] joint space, subchondral sclerosis, osteophyte formation, and muko-dz-rnxo contact. IMPRESSION: 1.) Severe symptomatic end-stage arthritis, [...] of limb, and ultimately loss of life. emt intermediate expectations, risks and general implant survivorship were also discussed. Despite these risks, the patient would like to proceed with surgical planning. Today, we will initiate the pre-surgical process including nasal MRSA screening, scheduling an appointment for [facility] [place] and the potential surgical date, and reviewing [...] Unknown Penicillins Hives documented in this encounter [facility] Evaluation note Diagnosis Pain of left hip- Primary Osteoarthritis of left hip, unspecified osteoarthritis type [facility] Diagnosis S/P total hip arthroplasty- Primary Hip joint replacement by other means Preop testing Preoperative examination, unspecified Pain in other specified joint Osteoarthritis of left hip, unspecified osteoarthritis type Acute postoperative pain of left hip Status post total replacement of left hip [facility] Diagnosis S/P total left hip arthroplasty- Primary [facility] Diagnosis S/P total left hip arthroplasty- Primary S/P total left hip arthroplasty 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 Acquired absence of kidney [facility] Diagnosis S/P total left hip arthroplasty- Primary S/P total left hip arthroplasty 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 Acquired absence of kidney [facility] Diagnosis S/P total left hip arthroplasty- Primary [facility] Diagnosis Primary osteoarthritis of left hip- Primary Primary localized osteoarthrosis, pelvic region and thigh documented in this encounter [facility] Summary Purpose Family History No Family History [...] HIP WITH PELVIS LEFT Erik Heredia MD [address] [place] [address] Referral ID Status Reason Start Date Expiration Date V isits Requested Visits Authorized [id number] New Request 11/19/2023 12/13/2024 1 1 Specialty Diagnoses / Procedures Referred By Abiodun t Referred To Contact Procedures ECG Luis Monte MD [address] [place] [address] Referral ID Status Reason Start Date Expiration Date V isits Requested Visits Authorized [id number] New Request 01/13/2024 02/06/2025 1 1 Specialty Diagnoses / Procedures Referred By Contac t Referred To Contact [facility] REV LOC [address] [place] [address] Referral ID Status Reason Start Date Expiration Date Visits Re quested Visits Authorized Specialty Diagnoses / Procedures Referred By Contac t Referred To Contact Diagnoses S/P total left hip arthroplasty Procedures XR HIP WITH PELVIS LEFT Tonya Paige M [address] [place] [address] Referral ID Status Reason Start Date Expiration Date V isits Requested Visits Authorized [id number] New Request 01/26/2024 02/19/2025 1 1 Referral ID Status Reason Start Date Expiration Date V isits Requested Visits Authorized [id number] New Request 02/17/2024 03/13/2025 1 1 Additional Source Comments INFORMATION SOURCE (unrecogn ized section and content) DATE CREATED AUTHOR 11/20/2022 [facility] DATE CREATED AUTHOR AUTHOR'S ORGANIZ ATION 09/19/2023 [facility] DATE CREATED AUTHOR AUTHOR'S ORGANIZ ATION 11/07/2023 [facility] EPIC DATE CREATED AUTHOR AUTHOR'S ORGANIZ ATION 01/10/2024 [facility] DATE CREATED AUTHOR AUTHOR'S ORGANIZ ATION [facility] DATE CREATED AUTHOR AUTHOR'S ORGANIZ ATION 03/20/2024 [facility] Reason for Visit (unrecogniz ed section and content) Specialty Diagnoses / Procedures Referred By Contac t Referred To Contact Diagnoses Pain of left hip Procedures XR HIP WITH PELVIS LEFT Erik Heredia MD [address] [place] [address] Referral ID Status Reason Start Date Expiration Date V isits Requested Visits Authorized [id number] New Request 11/19/2023 12/13/2024 1 1 Reason Comments Pain Specialty Diagnoses / Procedures Referred By Contac t Referred To Contact Diagnoses Osteoarthritis of left hip, unspecified osteoarthritis type Osteoarthritis of left hip, unspecified osteoarthritis type [M16.12] Procedures VA ARTHRP ACETBLR/PROX FEM PROSTC AGRFT/ALGRFT ARTHROPLASTY HIP TOTAL LATERAL APPROACH Erik Heredia MD [address] [place] [address] Referral ID Status Reason Start Date Expiration Date Visits Re quested Visits Authorized [id number] 12/06/2023 1 1 Reason Comments Surgical Follow-up 01/11/24 [facility] Specialty Diagnoses / Procedures Referred By Contac t Referred To Contact Diagnoses S/P total left hip arthroplasty Procedures XR HIP WITH PELVIS LEFT Paige Damon [address] [place] [address] Referral ID Status Reason Start Date Expiration Date V isits Requested Visits Authorized [id number] New Request 01/26/2024 02/19/2025 1 1 Referral ID Status Reason Start Date Expiration Date V isits Requested Visits Authorized [id number] New Request 02/17/2024 03/13/2025 1 1 Reason Comments Post Op Visit 01/11/24 Weight beari ng check left total hip arthroplasty Post Op Visit Specialty Diagnoses / Procedures Referred By Abiodun t Referred To Contact Diagnoses Hx of total hip arthroplasty, left Procedures XR HIP WITH PELVIS LEFT Ave Mackey APRN-CNP [address] [place] [address] Referral ID Status Reason Start Date Expiration Date V isits Requested Visits Authorized [id number] New Request 03/07/2024 04/01/2025 1 1 Reason Comments Pain Care Teams (unrecognized sec tion and content) 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 Start Date End Date Truman Boo Jr., DO [address] [facility] [address] [place] [address] PCP - General Orthopaedic Surgery 11/04/23 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 Start Date End Date Truman Boo Jr., DO [address] [place] [address] [place] [address] PCP - General Orthopaedic Surgery 11/04/23 12/02/23 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 Start Date End Date Jacob Kuhnbrenda [address] [place] [address] PCP - General Family Medicine 12/03/23 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 Start Date End Date KuhnTian [address] [place] [address] PCP - General Family Medicine 12/03/23 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 Start Date End Date KuhnJacob herrerabrenda [address] [place] [address] PCP - General Family Medicine 12/03/23 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 Start Date End Date Jacob Kuhnbrenda [address] [place] [address] PCP - General Family Medicine 12/03/23 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 Start Date End Date Kuhn Tian, [address] [place] [address] PCP - General Family Medicine 12/03/23 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 Start Date End Date Tian Kuhn [address] [place] [address] PCP - General Family Medicine 12/03/23 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 Start Date End Date Tian Kuhn DO [address] [place] [address] PCP - General Family Medicine 12/03/23 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 [facility] [employer] [facility]. provides no warranty or guarantee of the accuracy or completeness of information in this document.
[2024-05-01] MEDS: APIXABAN 5 MG TABLET PO (22:18)
[2024-05-01] MEDS: ACETAMINOPHEN 325 MG TABLET 650 MG PO (23:34)
[2024-05-02] VITALS (9 sets, daily range): BP systolic 128–130; BP diastolic 77–84; PULSE 64–100; TEMP 36.3–36.7; O2SAT 93–95
--- NOTE | 2024-05-02 05:35 | P.HP_ITS ---
HPI H&P: HPI History of Present Illness Chief complaint: Chest Pain Narrative: Patient presented to the emergency room with upper chest pain and radiating up into her jaw. She was sitting at the time but under increased stress. Evaluation in the emergency room found patient to have's elevated of blood pressure. EKG without acute change, she does have a right bundle branch block but not sure if that is new or old, initial troponins were negative, with the shortness of breath associated with the episode she was observed overnight. She has no further chest pain currently When I saw patient up on the medical surgical floor she was resting comfortably in bed without complaint. Denies shortness of breath or chest pain Opioid HPI Opioid Management Most Recent Pain and Opioid Data: Last Pain Scale 3 05/01/24 23:34 05/01/24 Last Pain Assessment 05/02/24 10:02 Last MAR Pain Assessment 05/02/24 01:04 Last ORT Total Score 0 05/01/24 21:05 05/01/24 Last ORT Risk Category Low Risk 05/01/24 21:05 05/01/24 PFSH PFSH Medical History (Updated 05/02/24 @ 10:18 by Jayme Shafer MD) Aneurysm of aorta ?I71.9 - Aortic aneurysm of unspecified site, without rupture (ICD-10) Surgical History (Updated 05/01/24 @ 21:14 by Andressa Lea) H/O: hysterectomy ?Z90.710 - Acquired absence of both cervix and uterus (ICD-10) H/O left knee surgery ?Z98.890 - Other specified postprocedural states (ICD-10) H/O kidney removal ?Z90.5 - Acquired absence of kidney (ICD-10) History of hip surgery ?Z98.890 - Other specified postprocedural states (ICD-10) History of cholecystectomy ?Z90.49 - Acquired absence of other specified parts of digestive tract (ICD- 10) Family History (Updated 05/01/24 @ 21:32 by Andresas Lea) Father Family history of CHF (congestive heart failure) Family history of COPD (chronic obstructive pulmonary disease) Family history of cancer Family history of hypertension Family history of myocardial infarction Mother Family history of cancer Grandmother Family history of cancer Family history of stroke Granddaughter Family history of diabetes mellitus Social History (Updated 10/14/24 @ 21:33 by Andressa Lea) Within the past year, how often did you have a drink containing alcohol: never Score interpretation: A score less than 3 is consistent with normal alcohol consumption. Smoking status: Never smoker Non-prescribed substance use: denies use Previous occupational history: retired Highest level of school completed/degree received: 11th grade Are you now , , , , never or living with a partner: In a typical week, how many times do you talk on the telephone with family, friends, or neighbors: 3 or more times per week How often do you get together with friends or relatives: twice per week How often do you attend congregational or alevism services: never Do you belong to any clubs or organizations such as congregational groups unions, [employer] or athletic groups, or school groups: no Total score: 1 Score interpretation: A score of less than or equal to 1 indicates the most socially isolated. Little interest or pleasure in doing things: not at all Feeling down, depressed, or hopeless: not at all Feel stressed/tense/nervous/anxious/difficulty sleeping: only a little Do you think of yourself as: straight/heterosexual Gender Identity: female Meds Home Medications and Allergies Home Medications ?Medication ?Instructions ?Recorded ?Confirmed ?Type allopurinol 100 mg tablet 100 mg PO DAILY 05/01/24 05/01/24 History apixaban 5 mg tablet (Eliquis) 5 mg PO Q12H 05/01/24 05/01/24 History magnesium oxide 400 mg (241.3 mg 400 mg PO BID 05/01/24 05/01/24 History magnesium) tablet omeprazole 20 mg capsule,delayed 20 mg PO .daily 05/01/24 05/01/24 History release tolterodine 4 mg capsule,extended 4 mg PO Q24H 05/01/24 05/01/24 History release 24 hr aspirin 81 mg capsule 81 mg PO DAILY #30 caps 05/02/24 Rx Allergies Allergy/AdvReac Type Severity Reaction Status Date / Time mophine AdvReac Severe Nausea Uncoded 05/01/24 17:53 Exam Constitutional Vital Signs, click to edit/add: Last Vital Signs Temp 97.4 F L 05/02/24 03:56 Pulse 64 05/02/24 04:06 Resp 18 05/02/24 03:56 BP 128/77 05/02/24 03:56 Pulse Ox 95 05/02/24 03:56 O2 Del Method Room Air 05/02/24 03:56 Documenting provider has reviewed patient's vital signs: yes Common normals: no apparent distress Chest Common normals: inspection of chest normal Respiratory Common normals: normal respiratory effort and no retractions Cardio Common normals: regular rate and regular rhythm GI Common normals: Normal to inspection, nondistended, normoactive bowel sounds present Extremity Common normals: abnormal to inspection (2+ edema which is normal for her) Results Labs Labs: Short CBC 05/01/24 Range/Units 17:56 WBC 5.9 (4.0-11.0) 10^3/uL Hgb 12.5 (12.0-16.0) g/dL Hct 39.9 (36.0-48.0) % Plt Count 298 (150-450) 10^3/uL BMP 05/01/24 17:56 Sodium 139 Potassium 4.0 Chloride 104 Carbon Dioxide 28.0 BUN 18.0 Creatinine 1.04 H Glucose 103 Calcium 9.9 Liver Function 05/01/24 Range/Units 17:56 Total Bilirubin 0.2 (0.2-1.0) mg/dL AST 16 (15-37) U/L ALT 9 L (14-59) U/L Alkaline Phosphatase 120 H (46-116) U/L Albumin 3.2 L (3.4-5.0) g/dL Assessment and Plan Assessment and Plan (1) Chest pain: (2) Mild protein-calorie malnutrition: (3) Right bundle branch block: (4) Premature ventricular contractions: (5) History of pulmonary embolism: (6) Iron deficiency anemia: Plan Admission findings: Chest pain with elevated blood pressure, associated symptoms of shortness of breath but no diaphoresis. Admitted for workup and treatment of same Chest pain: Resolved on its own lasted lobe just over an hour. Has had occasional previous symptoms but nothing progressive. This 1 did occur with rest although she was somewhat anxious at the time. Blood pressure uncontrolled on admission. All of that is better this morning. At this point if her echocardiogram returns normal ejection fraction she can be discharged home in improving condition. Medications see list. Follow-up with her PCP within the next week. History of pulmonary embolism-maintain current medications GERD-continue with current medications Bladder incontinence continue with current medications Admission status: Patient observed overnight with chest pain, currently resolved, medically necessary treatment will span 1 midnight. Maintain observation status
--- NOTE | 2024-05-02 05:37 | CA_ITS ---
Patient Name: CUATE GOODMAN MR#: [id number] : 1940 Exam Date: 05/02/2024 Ordering Doctor: DR Jayme Shafer . ECHOCARDIOGRAM REPORT PROCEDURE: CA ECHO LIMITED INDICATIONS: Dyspnea, Chest pain COMPARISON: None. DESCRIPTION: Limited ECHOCARDIOGRAM Real-time transthoracic echocardiography with 2D and M-mode performed. QUALITY: Technical quality was adequate. LEFT VENTRICLE: Normal chamber size. Borderline left ventricular hypertrophy. LV EF: Left ventricular systolic function at lower limits of normal, no wall motion abnormalities, ejection fraction approximately 50% DIASTOLIC: ATRIAL SEPTUM: LEFT ATRIUM: Mild dilatation. RIGHT ATRIUM: Mild dilatation. RIGHT VENTRICLE: Normal chamber size. Normal systolic function TRICUSPID VALVE: Normal mobility and thickness. MITRAL VALVE: Mildly thickened with normal mobility. There is no mitral annular calcification. AORTIC VALVE: Normal trileaflet appearance. Mildly calcified aortic valve AORTIC ROOT: Normal diameter and appearance. PULMONIC VALVE: Normal thickness and mobility. PERICARDIUM: No evidence of pericardial effusion. IVC: IVC is dilated (2.3 cm) with no collapse. PLEURA: CONCLUSION: Low normal ventricular function without wall motion abnormalities, ejection fraction 50% Biatrial enlargement Sclerotic aortic valve, no Doppler study was performed Dilated IVC with reduced respiratory collapse consistent with elevated CVP, RAP 15 mmHg Adult Echocardiography Procedure Report Left Ventricle LVEDD (3.7 - 5.6 cm): 5.23 cm LVESD (2.2 - 4.0 cm): 3.69 cm LVIVS thickness (0.6 - 1.2 cm): 0.91 cm LVPW thickness (0.5 - 1.0 cm): 1.07 cm LVOT Diameter 2.38 cm Left Atrium LA Volume Index (2D A2C): 36.81 ml/m2 Left Atrium Systolic Dimension: 3.12 cm Mitral Valve Right Ventricle Aorta AO Root Diam: 3.74 cm Ascending Ao Diam: 2.73 cm Aortic Valve Tricuspid Valve Pulmonic Valve Right Atrium Right Atrium Systolic Pressure: 63.70 ml, 63.70 ml Dictated by: Vinita Alvarez MD on 05/02/2024 at 16:07 Approved by: Vinita Alvarez MD on 05/02/2024 at 16:15
--- NOTE | 2024-05-02 06:00 | ECG_ITS ---
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
[2024-05-02 06:27] LABS: Hematocrit 40.2 % (36.0-48.0); Hemoglobin 12.8 g/dL (12.0-16.0); Mean Corpuscular HGB Conc 31.8 g/dL (29.9-35.2); Mean Corpuscular Hemoglobin 30.5 pg (26.7-34.0); Mean Corpuscular Volume 95.7 fL (81.0-99.0); Mean Platelet Volume 9.9 fL (9.5-13.5); Platelet Count 278 10^3/uL (150-450); Red Cell Distribution Width 14.2 % (11.0-15.0); White Blood Count 5.2 10^3/uL (4.0-11.0)
[2024-05-02 06:33] LABS: Anion Gap 13.4; Calcium 9.5 mg/dL (8.5-10.1); Carbon Dioxide 26.8 mmol/L (21.0-32.0); Chloride 107 mmol/L (98-107); Estimated GFR (African America >60 (>=60 mL/min/1.73m^2); Estimated GFR (Non-African Ame 57 (>=60 mL/min/1.73m^2); Glucose 94 mg/dL (74-106); Potassium 4.2 mmol/L (3.5-5.1); Sodium 143 mmol/L (136-145)
[2024-05-02] MEDS: OMEPRAZOLE 20 MG CAPSULE.DR PO (08:29)
[2024-05-02] MEDS: SOLIFENACIN SUCCINATE 10 MG TABLET PO (08:29)
[2024-05-02] MEDS: MAGNESIUM OXIDE 400 MG TABLET PO (08:29)
[2024-05-02] MEDS: APIXABAN 5 MG TABLET PO (08:29)
[2024-05-02] MEDS: ALLOPURINOL 100 MG TABLET PO (08:29)
--- NOTE | 2024-05-02 08:50 | CM.NOTE ---
Rounds made with Dr. Shafer, pt will discharge to home after echocardiogram. Pt denies any chest pain or shortness of breath this AM. Pt verbalizes increased stress at home.
--- NOTE | 2024-05-02 09:54 | PC.NURSE ---
Per [place] missile tracking technician, EF is greater than 45%.
--- NOTE | 2024-05-02 10:34 | CM.NOTE ---
Medicare Outpatient Observation Notice discussed with pt, pt verbalizes understanding and signs paper. Original given to pt and copy placed in pt's chart.
--- NOTE | 2024-05-02 10:44 | SWNOTE1 ---
SW spoke to case management and pt does not need any services at discharge and did well with therapy.
--- NOTE | 2024-05-02 13:42 | P.DS_ITS ---
DS: Providers Provider Date of admission: 05/01/24 20:57 Primary care physician: JASON MORALES DO Consults: 05/02/24 05:36 Consult to Pharmacy Routine Consulting Provider: Reason for consultation: Please Irons me when Med Rec is Updated Has provider been notified: No Occupational Therapy Eval and Treat Routine Reason for consultation: Only if needed for Rehab Has provider been notified: No Physical Therapy Eval and Treat Routine Reason for consultation: Eval and Treat Has provider been notified: No DS: Diagnosis Discharge Diagnosis (1) Chest pain: (2) Mild protein-calorie malnutrition: (3) Right bundle branch block: (4) Premature ventricular contractions: (5) History of pulmonary embolism: (6) Iron deficiency anemia: Plan Admission findings: Chest pain with elevated blood pressure, associated symptoms of shortness of breath but no diaphoresis. Admitted for workup and treatment of same Chest pain: Resolved History of pulmonary embolism-maintain current medications GERD-continue with current medications Bladder incontinence continue with current medications Admission status: Patient observed overnight with chest pain, currently resolved, medically necessary treatment will span 1 midnight. Maintain observation status ? DS: Summary Hospital Course Hospital Course: Patient was admitted with chest pain, pain radiating up into her neck and some shortness of breath. No diaphoresis.Echocardiogram is unremarkable with a good ejection fraction, cardiac markers were negative, patient feels much improved and should be discharged to home in improving condition. Medications to this. Follow-up with PCP within the next week. Time Spent with Patient Time attestation: Total time spent providing and/or coordinating discharge services: Exam Constitutional Vital Signs, click to edit/add: Last Vital Signs Temp 98.0 F 05/02/24 08:24 Pulse 100 H 05/02/24 09:57 Resp 18 05/02/24 08:24 BP 130/84 05/02/24 08:24 Pulse Ox 93 L 05/02/24 10:49 O2 Del Method Room Air 05/02/24 10:49 Documenting provider has reviewed patient's vital signs: yes Common normals: no apparent distress Chest Common normals: inspection of chest normal Respiratory Common normals: normal respiratory effort and no retractions Cardio Common normals: regular rate and regular rhythm GI Common normals: Normal to inspection, nondistended, normoactive bowel sounds present Extremity Common normals: abnormal to inspection (2+ edema which is normal for her) DS: Data Data Completed and Pending Labs on day of discharge: Labs from last 24 hours 05/02/24 05/01/24 05/01/24 06:08 18:57 17:56 WBC 5.2 5.9 RBC 4.20 4.11 L Hgb 12.8 12.5 Hct 40.2 39.9 MCV 95.7 97.1 MCH 30.5 30.4 MCHC 31.8 31.3 RDW 14.2 14.2 Plt Count 278 298 MPV 9.9 9.8 Neut % (Auto) 55.1 Lymph % (Auto) 31.3 Thayer % (Auto) 10.6 Eos % (Auto) 1.9 Baso % (Auto) 0.9 Neut # (Auto) 3.2 Lymph # (Auto) 1.8 Thayer # (Auto) 0.6 Eos # (Auto) 0.1 Baso # (Auto) 0.1 Abs Immat Gran (auto) 0.01 Imm/Tot Granulo (auto) 0.2 PT 11.7 H INR 1.12 APTT 29.1 Sodium 143 139 Potassium 4.2 4.0 Chloride 107 104 Carbon Dioxide 26.8 28.0 Anion Gap 13.4 11.0 BUN 16.0 18.0 Creatinine 0.94 1.04 H Est GFR ( Amer) >60 >60 Est GFR (Non-Af Amer) 57 L 51 L BUN/Creatinine Ratio 17.0 17.3 Glucose 94 103 Calcium 9.5 9.9 Total Bilirubin 0.2 AST 16 ALT 9 L Alkaline Phosphatase 120 H Troponin I High Sens 13.0 8.9 9.6 NT-Pro-B Natriuret Pep 621.0 Total Protein 7.5 Albumin 3.2 L Globulin 4.3 Albumin/Globulin Ratio 0.7 Discharge Plan Discharge Disposition: Home, Self-Care Discharge Medications: New aspirin 81 mg capsule 81 mg PO DAILY Qty: 30 11RF Continued Eliquis 5 mg tablet 5 mg PO Q12H allopurinol 100 mg tablet 100 mg PO DAILY magnesium oxide 400 mg (241.3 mg magnesium) tablet 400 mg PO BID omeprazole 20 mg capsule,delayed release(DR/EC) 20 mg PO .daily tolterodine 4 mg capsule,extended release 24hr 4 mg PO Q24H Activity: increase activity as tolerated Diet: advance to your usual diet Print Language: French Patient Instructions: Chest Pain (DC) Forms: Portal Instructions Follow Up Appointments: @ 1:30pm with Dr. Morales [phone] Discharge Date/Time: 05/02/24 11:41
--- NOTE | 2024-05-03 14:39 | CM.DCFOLLOWU ---
Person spoke with:patient How are you feeling?well How is your pain?none Did you understand your discharge instructions?yes Do you have any questions about your discharge instructions?no Were you given any prescriptions at discharge? yes Were you able to get your prescriptions filled?yes Do you understand how to take your medications as ordered?yes Do you have any questions about your follow up appointment and do you plan to keep your follow up appointment? no questions, reviewed follow up Is there anything else that you would like to discuss?no Questions/Comments/Concerns/Other:none
== END 2024-05-02 11:41 | disposition home or self-care (01) ==
LOC: ER 20:33 → MS 21:05
PROVIDERS: Registered Nurse; Student in an Organized Health Care Education/Training Program; Admitting Provider Family Medicine; Emergency Provider Internal Medicine; PCP Family Medicine; Visit Provider Family Medicine
DX: R07.9 Chest pain, unspecified (principal); I10 Essential (primary) hypertension; I45.10 Unspecified right bundle-branch block; K21.9 Gastro-esophageal reflux disease without esophagitis; R32 Unspecified urinary incontinence; D50.9 Iron deficiency anemia, unspecified; I49.3 Ventricular premature depolarization; E44.1 Mild protein-calorie malnutrition; Z68.41 Body mass index [BMI] 40.0-44.9, adult; R06.02 Shortness of breath; Z86.711 Personal history of pulmonary embolism; Z79.01 Long term (current) use of anticoagulants; Z79.899 Other long term (current) drug therapy
CPT/HCPCS: 36415; 71045; 80048; 80053; 83880; 84484; 85025; 85027; 85610; 85730; 93005; 93308; 94761; 97165; 99285; G0378

== ENCOUNTER 2024-07-18 06:43 | Inpatient (IN) | payer MEDICARE, SELFPAY ==
[2024-07-18] VITALS (17 sets, daily range): BP systolic 98–177; BP diastolic 58–116; PULSE 72–120; TEMP 36.6–39.1; O2SAT 90–100; BMI 37.2
--- NOTE | 2024-07-18 06:59 | PC.NURSE ---
this patient complains left lower back pain onset 03:00 am, hx kidney stones in the past. squad placed a 20 gauge left FA, 15 mg Toradol and 4 mg Zofran
--- OUTSIDE RECORDS SUMMARY | 2024-07-18 07:01 | XMS_ITS | CCD ---
Author Organization [facility] Care Team Providers Care Chronometer Adjuster Name Role Phone DR TIAN KUHN Primary [...] Unavailable Kuhn Tian CIFUENTES Primary Care Provider [phone] Kuhn Tian CIFUENTES Primary Care Provider [phone] REBECCA, MOHAN Admitting Unavailable REBECCAROBERTAN Attending Unavailable [...] TIAN Primary Care Unavailable RAJEEV TRUMAN [facility] Care Unavailable YAN, ERIK Referring Unavailable ERIK HEREDIA Attending Unavailable KUHN, TIAN Primary Care Unavailable ERIK HEREDIA Referring Unavailable ERIK HEREDIA Attending Unavailable ERIK HEREDIA Admitting Unavailable Allergies Allergy Classification Reported Allergen(s) Allergy Type Date of Onset Reaction(s) Facility (4 sources) Morphine; 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: [MORPHINE] Drug Allergy [address] [facility] Repository (12 sources) oxyCODONE; 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: [OXYCODONE] Drug Allergy 7 Nausea and Vomiting [facility] Repository (11 sources) Morphine Drug Allergy 7 Nausea and Vomiting [facility] (11 sources) Penicillins Propensity to adverse reactions to drug 4 [facility] Medications Current Medications Medication Drug Class(es) [...] Corticosteroid Start: 02-09-2024 End: 02-11-2024 bifidobacterium animalis [id number] unt / lactobacillus acidophilus [id number] unt oral capsule (2 sources) Start: 01-22-2024 [...] 01/19/2024 Discontinued (Stop Taking at Discharge) nystatin [id number] unt/ml topic al cream (8 sources) Polyene [...] Start: 01-12-2024 End: 02-11-2024 polyethylene glycol [id number] mg powder for oral solution (6 sources) [...] 01-11-2024 Chronic Other aftercare (1 source) Other long term care pharmacist (current) drug therapy; 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: [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] Onset: 11-19-2022 Episodic Other aftercare (1 source) prison (current) use of non-steroidal anti-inflammatories (NSAID); 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: [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 Creatinine [Mass/Vol] 0.80 mg/dL Normal 0.7-1.2 [facility] EST. GFR, 89 ml/min/1.73sq.m Normal [facility] EST. GFR,Non 73 ml/min/1.73sq.m [facility] GFR Information Average GFR for 70+ years old = 75. Normal [facility] Comment on above: Result Comment: Office Inspector aviva Kidney disease, GFR = <60. Kidney failure, GFR = <15. The GFR estimate is not adjusted for extreme body surface area or acute process, nor has it been validated for women or ethnic groups other than and . Glucose [Mass/Vol] 98 mg/dL Normal 70-100 [facility] Comment on above: Result Comment: NORMAL <100 mg/dL PREDIABETES 101-126 mg/dL DIABETES 126 mg/dL or higher Potassium [Moles/Vol] 4.5 mmol/L Normal 3.5-5.1 [facility] Sodium [Moles/Vol] 135 mmol/L Low 137-145 [facility] Urea nitrogen [Mass/Vol] 16 mg/dL Normal 7-20 [facility] C REACTIVE PROTEINon 024 CRP [Mass/Vol] 22.8 mg/L High 0-10 [facility] 02-11-2024 ABSOLUTE BAS 0.0 10*3/uL Normal 0.0-0.2 [facility] ABSOLUTE EOS 0.2 10*3/uL Normal 0.0-0.7 [facility] ABSOLUTE NEUTROPHIL COUNT 2.8 10*3/uL Normal 1.4-6.5 [facility] Basophils/100 WBC (Bld) 1.0 % Normal 0.0-2.0 [facility] DTYPE AUTO DIFF Normal [facility] Eosinophils/100 WBC (Bld) 4.1 % Normal 0.0-11.0 [facility] Lymphocytes (Bld) [#/Vol] 1.3 10*3/uL Normal 1.2-3.4 [facility] Lymphocytes/100 WBC (Bld) 25.8 % Normal 20.0-55.0 [facility] Monocytes (Bld) [#/Vol] 0.7 10*3/uL Normal 0.0-0.7 [facility] Monocytes/100 WBC (Bld) 13.4 % High 0.0-10.0 [facility] Neutrophils/100 WBC (Bld) 55.7 % Normal 37.0-75.0 [facility] Erythrocyte distribution width (RBC) [Ratio] 15.2 % High 11.5-14.5 [facility] Hematocrit (Bld) [Volume fraction] 31.9 % Low 36.0-48.0 [facility] Hemoglobin (Bld) [Mass/Vol] 10.7 g/dL Low 12.0-16.0 [facility] MCH (RBC) [Entitic mass] 32.2 pg Normal 26.0-35.0 [facility] MCHC (RBC) [Mass/Vol] 33.6 g/dL Normal 27.0-37.0 [facility] MCV (RBC) [Entitic vol] 96.1 fL Normal 80.0-100.0 [facility] Platelet mean volume (Bld) [Entitic vol] 7.2 fL Low 7.4-11.0 [facility] Platelets (Bld) [#/Vol] 368 10*3/uL Normal 130-400 [facility] RBC (Bld) [#/Vol] 3.32 10*6/uL Low 4.0-5.4 [facility] WBC (Bld) [#/Vol] 5.0 10*3/uL Normal 3.6-11.0 [facility] Laboratory - Chemistry and C hemistry - challengeon 02-11-2024 Anion gap [Moles/Vol] 3 mmol/L Low [facility] Calcium [Mass/Vol] 9.1 mg/dL [facility] Chloride [Moles/Vol] 104 mmol/L [facility] CO2 [Moles/Vol] 28 mmol/L [facility] Creatinine [Mass/Vol] 0.80 mg/dL [facility] CRP [Mass/Vol] 22.8 mg/L High 0 - 10 MG/L [facility] GFR/1.73 sq M.predicted among blacks MDRD (S/P/Bld) [Vol rate/Area] 89 mL/min/{1.73_m2} ml/min/1.73sq .m [facility] GFR/1.73 sq M.predicted among non-blacks MDRD (S/P/Bld) [Vol rate/Area] 73 mL/min/{1.73_m2} ml/min/1.73sq .m [facility] Glucose post fast [Mass/Vol] 98 mg/dL [facility] Potassium [Moles/Vol] 4.5 mmol/L [facility] Sodium [Moles/Vol] 135 mmol/L Low [facility] Urea nitrogen [Mass/Vol] 16 mg/dL [facility] Laboratory - Hematology and Cell countson 02-11-2024 Basophils/100 WBC (Bld) 1.0 % 0.0 - 2.0 % [facility] Differential cell count method Nom (Bld) AUTO DIFF % [facility] Eosinophils (Bld) [#/Vol] 0.2 10*3/uL 0.0 - 0.7 10*3/uL [facility] Eosinophils/100 WBC (Bld) 4.1 % 0.0 - 11.0 % [facility] Erythrocyte distribution width (RBC) [Ratio] 15.2 % High 11.5 - 14.5 % [facility] Hematocrit (Bld) [Volume fraction] 31.9 % Low 36.0 - 48.0 % [facility] Hemoglobin (Bld) [Mass/Vol] 10.7 g/dL Low [facility] Lymphocytes (Bld) [#/Vol] 1.3 10*3/uL 1.2 - 3.4 10*3/uL [facility] Lymphocytes/100 WBC (Bld) 25.8 % 20.0 - 55.0 % [facility] MCH (RBC) [Entitic mass] 32.2 pg 26.0 - 35.0 PG [facility] MCHC (RBC) [Mass/Vol] 33.6 g/dL [facility] MCV (RBC) [Entitic vol] 96.1 fL [facility] Monocytes (Bld) [#/Vol] 0.7 10*3/uL 0.0 - 0.7 10*3/uL [facility] Monocytes/100 WBC (Bld) 13.4 % High 0.0 - 10.0 % [facility] Neutrophils (Bld) [#/Vol] 2.8 10*3/uL 1.4 - 6.5 10*3/uL [facility] Neutrophils/100 WBC (Bld) 55.7 % 37.0 - 75.0 % [facility] Platelet mean volume (Bld) [Entitic vol] 7.2 fL Low [facility] Platelets (Bld) [#/Vol] 368 10*3/uL 130 - 400 10*3/uL [facility] RBC (Bld) [#/Vol] 3.32 10*6/uL Low 4.0 - 5.4 10*6/uL [facility] WBC (Bld) [#/Vol] 5.0 10*3/uL 3.6 - 11.0 10*3/uL [facility] No Panel Informationon 02-10 GFR COMMENT Average GFR for 70+ years old = 75. [facility] Interpretation and review of laboratory results Abnormal [facility] ABSOLUTE BASOPHIL COUNT 0.0 10*3/uL 0.0 - 0.2 10*3/uL [facility] Interpretation and review of laboratory results Abnormal [facility] BMP FASTINGon 02-10-2024 Anion gap [Moles/Vol] 1 mmol/L Low 8-16 [facility] Calcium [Mass/Vol] 8.8 mg/dL Normal 8.4-10.2 [facility] Chloride [Moles/Vol] 105 mmol/L Normal 98-107 [facility] Comment on above: Result Comment: Shonda matthews note: Triglyceride levels of 600mg/dL or higher may positively bias chloride results by approximately 2.1 mmol CO2 [Moles/Vol] 29 mmol/L Normal 22-30 [facility] Creatinine [Mass/Vol] 0.80 mg/dL Normal 0.7-1.2 [facility] EST. GFR, 89 ml/min/1.73sq.m Normal [facility] EST. GFR,Non 73 ml/min/1.73sq.m Normal [facility] GFR Information Average GFR for 70+ years old = 75. Normal [facility] Comment on above: Result Comment: Office Inspector aviva Kidney disease, GFR = <60. Kidney failure, GFR = <15. The GFR estimate is not adjusted for extreme body surface area or acute process, nor has it been validated for women or ethnic groups other than and . Glucose [Mass/Vol] 97 mg/dL Normal 70-100 [facility] Comment on above: Result Comment: NORMAL <100 mg/dL PREDIABETES 101-126 mg/dL DIABETES 126 mg/dL or higher Potassium [Moles/Vol] 4.3 mmol/L Normal 3.5-5.1 [facility] Sodium [Moles/Vol] 135 mmol/L Low 137-145 [facility] Urea nitrogen [Mass/Vol] 19 mg/dL Normal 7-20 [facility] C REACTIVE PROTEINon 024 CRP [Mass/Vol] 18.6 mg/L High 0-10 [facility] 02-10-2024 ABSOLUTE BAS 0.0 10*3/uL Normal 0.0-0.2 [facility] ABSOLUTE EOS 0.2 10*3/uL Normal 0.0-0.7 [facility] ABSOLUTE NEUTROPHIL COUNT 3.8 10*3/uL Normal 1.4-6.5 [facility] Basophils/100 WBC (Bld) 0.6 % Normal 0.0-2.0 [facility] DTYPE AUTO DIFF Normal [facility] Eosinophils/100 WBC (Bld) 3.1 % Normal 0.0-11.0 [facility] Lymphocytes (Bld) [#/Vol] 1.6 10*3/uL Normal 1.2-3.4 [facility] Lymphocytes/100 WBC (Bld) 24.9 % Normal 20.0-55.0 [facility] Monocytes (Bld) [#/Vol] 0.7 10*3/uL Normal 0.0-0.7 [facility] Monocytes/100 WBC (Bld) 11.0 % High 0.0-10.0 [facility] Neutrophils/100 WBC (Bld) 60.4 % Normal 37.0-75.0 [facility] Erythrocyte distribution width (RBC) [Ratio] 15.2 % High 11.5-14.5 [facility] Hematocrit (Bld) [Volume fraction] 31.7 % Low 36.0-48.0 [facility] Hemoglobin (Bld) [Mass/Vol] 10.7 g/dL Low 12.0-16.0 [facility] MCH (RBC) [Entitic mass] 32.1 pg Normal 26.0-35.0 [facility] MCHC (RBC) [Mass/Vol] 33.6 g/dL Normal 27.0-37.0 [facility] MCV (RBC) [Entitic vol] 95.6 fL Normal 80.0-100.0 [facility] Platelet mean volume (Bld) [Entitic vol] 7.2 fL Low 7.4-11.0 [facility] Platelets (Bld) [#/Vol] 369 10*3/uL Normal 130-400 [facility] RBC (Bld) [#/Vol] 3.32 10*6/uL Low 4.0-5.4 [facility] WBC (Bld) [#/Vol] 6.3 10*3/uL Normal 3.6-11.0 [facility] Laboratory - Chemistry and C hemistry - challengeon 02-10-2024 Anion gap [Moles/Vol] 1 mmol/L Low [facility] Calcium [Mass/Vol] 8.8 mg/dL [facility] Chloride [Moles/Vol] 105 mmol/L [facility] CO2 [Moles/Vol] 29 mmol/L [facility] Creatinine [Mass/Vol] 0.80 mg/dL [facility] CRP [Mass/Vol] 18.6 mg/L High 0 - 10 MG/L [facility] GFR/1.73 sq M.predicted among blacks MDRD (S/P/Bld) [Vol rate/Area] 89 mL/min/{1.73_m2} ml/min/1.73sq .m [facility] GFR/1.73 sq M.predicted among non-blacks MDRD (S/P/Bld) [Vol rate/Area] 73 mL/min/{1.73_m2} ml/min/1.73sq .m [facility] Glucose post fast [Mass/Vol] 97 mg/dL [facility] Potassium [Moles/Vol] 4.3 mmol/L [facility] Sodium [Moles/Vol] 135 mmol/L Low [facility] Urea nitrogen [Mass/Vol] 19 mg/dL [facility] Laboratory - Hematology and Cell countson 02-10-2024 Basophils/100 WBC (Bld) 0.6 % 0.0 - 2.0 % [facility] Differential cell count method Nom (Bld) AUTO DIFF % [facility] Eosinophils (Bld) [#/Vol] 0.2 10*3/uL 0.0 - 0.7 10*3/uL [facility] Eosinophils/100 WBC (Bld) 3.1 % 0.0 - 11.0 % [facility] Erythrocyte distribution width (RBC) [Ratio] 15.2 % High 11.5 - 14.5 % [facility] Hematocrit (Bld) [Volume fraction] 31.7 % Low 36.0 - 48.0 % [facility] Hemoglobin (Bld) [Mass/Vol] 10.7 g/dL Low [facility] Lymphocytes (Bld) [#/Vol] 1.6 10*3/uL 1.2 - 3.4 10*3/uL [facility] Lymphocytes/100 WBC (Bld) 24.9 % 20.0 - 55.0 % [facility] MCH (RBC) [Entitic mass] 32.1 pg 26.0 - 35.0 PG [facility] MCHC (RBC) [Mass/Vol] 33.6 g/dL [facility] MCV (RBC) [Entitic vol] 95.6 fL [facility] Monocytes (Bld) [#/Vol] 0.7 10*3/uL 0.0 - 0.7 10*3/uL [facility] Monocytes/100 WBC (Bld) 11.0 % High 0.0 - 10.0 % [facility] Neutrophils (Bld) [#/Vol] 3.8 10*3/uL 1.4 - 6.5 10*3/uL [facility] Neutrophils/100 WBC (Bld) 60.4 % 37.0 - 75.0 % [facility] Platelet mean volume (Bld) [Entitic vol] 7.2 fL Low [facility] Platelets (Bld) [#/Vol] 369 10*3/uL 130 - 400 10*3/uL [facility] RBC (Bld) [#/Vol] 3.32 10*6/uL Low 4.0 - 5.4 10*6/uL [facility] WBC (Bld) [#/Vol] 6.3 10*3/uL 3.6 - 11.0 10*3/uL [facility] No Panel Informationon 02-09 GFR COMMENT Average GFR for 70+ years old = 75. [facility] Interpretation and review of laboratory results Abnormal [facility] ABSOLUTE BASOPHIL COUNT 0.0 10*3/uL 0.0 - 0.2 10*3/uL [facility] Interpretation and review of laboratory results Abnormal [facility] BMP FASTINGon 02-09-2024 Anion gap [Moles/Vol] 3 mmol/L Low 8-16 [facility] Calcium [Mass/Vol] 9.1 mg/dL Normal 8.4-10.2 [facility] Chloride [Moles/Vol] 104 mmol/L Normal 98-107 [facility] Comment on above: Result Comment: Shonda matthews note: Triglyceride levels of 600mg/dL or higher may positively bias chloride results by approximately 2.1 mmol CO2 [Moles/Vol] 28 mmol/L Normal 22-30 [facility] Creatinine [Mass/Vol] 0.90 mg/dL Normal 0.7-1.2 [facility] EST. GFR, 77 ml/min/1.73sq.m Normal [facility] EST. GFR,Non 64 ml/min/1.73sq.m Normal [facility] GFR Information Average GFR for 70+ years old = 75. Normal [facility] Comment on above: Result Comment: Office Inspector aviva Kidney disease, GFR = <60. Kidney failure, GFR = <15. The GFR estimate is not adjusted for extreme body surface area or acute process, nor has it been validated for women or ethnic groups other than and . Glucose [Mass/Vol] 103 mg/dL High 70-100 [facility] Comment on above: Result Comment: NORMAL <100 mg/dL PREDIABETES 101-126 mg/dL DIABETES 126 mg/dL or higher Potassium [Moles/Vol] 4.5 mmol/L Normal 3.5-5.1 [facility] Sodium [Moles/Vol] 135 mmol/L Low 137-145 [facility] Urea nitrogen [Mass/Vol] 20 mg/dL Normal 7-20 [facility] C REACTIVE PROTEINon 02-08- 024 CRP [Mass/Vol] 21.2 mg/L High 0-10 [facility] 02-09-2024 ABSOLUTE BAS 0.1 10*3/uL Normal 0.0-0.2 [facility] ABSOLUTE EOS 0.2 10*3/uL Normal 0.0-0.7 [facility] ABSOLUTE NEUTROPHIL COUNT 3.7 10*3/uL Normal 1.4-6.5 [facility] Basophils/100 WBC (Bld) 0.9 % Normal 0.0-2.0 [facility] DTYPE AUTO DIFF Normal [facility] Eosinophils/100 WBC (Bld) 2.9 % Normal 0.0-11.0 [facility] Lymphocytes (Bld) [#/Vol] 1.8 10*3/uL Normal 1.2-3.4 [facility] Lymphocytes/100 WBC (Bld) 27.8 % Normal 20.0-55.0 [facility] Monocytes (Bld) [#/Vol] 0.7 10*3/uL Normal 0.0-0.7 [facility] Monocytes/100 WBC (Bld) 10.8 % High 0.0-10.0 [facility] Neutrophils/100 WBC (Bld) 57.6 % Normal 37.0-75.0 [facility] Erythrocyte distribution width (RBC) [Ratio] 15.1 % High 11.5-14.5 [facility] Hematocrit (Bld) [Volume fraction] 34.2 % Low 36.0-48.0 [facility] Hemoglobin (Bld) [Mass/Vol] 11.4 g/dL Low 12.0-16.0 [facility] MCH (RBC) [Entitic mass] 32.0 pg Normal 26.0-35.0 [facility] MCHC (RBC) [Mass/Vol] 33.4 g/dL Normal 27.0-37.0 [facility] MCV (RBC) [Entitic vol] 96.0 fL Normal 80.0-100.0 [facility] Platelet mean volume (Bld) [Entitic vol] 7.4 fL Normal 7.4-11.0 [facility] Platelets (Bld) [#/Vol] 401 10*3/uL High 130-400 [facility] RBC (Bld) [#/Vol] 3.56 10*6/uL Low 4.0-5.4 [facility] WBC (Bld) [#/Vol] 6.4 10*3/uL Normal 3.6-11.0 [facility] Laboratory - Chemistry and C hemistry - challengeon 02-09-2024 Anion gap [Moles/Vol] 3 mmol/L Low [facility] Calcium [Mass/Vol] 9.1 mg/dL [facility] Chloride [Moles/Vol] 104 mmol/L [facility] CO2 [Moles/Vol] 28 mmol/L [facility] Creatinine [Mass/Vol] 0.90 mg/dL [facility] CRP [Mass/Vol] 21.2 mg/L High 0 - 10 MG/L [facility] GFR/1.73 sq M.predicted among blacks MDRD (S/P/Bld) [Vol rate/Area] 77 mL/min/{1.73_m2} ml/min/1.73sq .m [facility] GFR/1.73 sq M.predicted among non-blacks MDRD (S/P/Bld) [Vol rate/Area] 64 mL/min/{1.73_m2} ml/min/1.73sq .m [facility] Glucose post fast [Mass/Vol] 103 mg/dL High [facility] Potassium [Moles/Vol] 4.5 mmol/L [facility] Sodium [Moles/Vol] 135 mmol/L Low [facility] Urea nitrogen [Mass/Vol] 20 mg/dL [facility] Laboratory - Hematology and Cell countson 02-09-2024 Basophils/100 WBC (Bld) 0.9 % 0.0 - 2.0 % [facility] Differential cell count method Nom (Bld) AUTO DIFF % [facility] Eosinophils (Bld) [#/Vol] 0.2 10*3/uL 0.0 - 0.7 10*3/uL [facility] Eosinophils/100 WBC (Bld) 2.9 % 0.0 - 11.0 % [facility] Erythrocyte distribution width (RBC) [Ratio] 15.1 % High 11.5 - 14.5 % [facility] Hematocrit (Bld) [Volume fraction] 34.2 % Low 36.0 - 48.0 % [facility] Hemoglobin (Bld) [Mass/Vol] 11.4 g/dL Low [facility] Lymphocytes (Bld) [#/Vol] 1.8 10*3/uL 1.2 - 3.4 10*3/uL [facility] Lymphocytes/100 WBC (Bld) 27.8 % 20.0 - 55.0 % [facility] MCH (RBC) [Entitic mass] 32.0 pg 26.0 - 35.0 PG [facility] MCHC (RBC) [Mass/Vol] 33.4 g/dL [facility] MCV (RBC) [Entitic vol] 96.0 fL [facility] Monocytes (Bld) [#/Vol] 0.7 10*3/uL 0.0 - 0.7 10*3/uL [facility] Monocytes/100 WBC (Bld) 10.8 % High 0.0 - 10.0 % [facility] Neutrophils (Bld) [#/Vol] 3.7 10*3/uL 1.4 - 6.5 10*3/uL [facility] Neutrophils/100 WBC (Bld) 57.6 % 37.0 - 75.0 % [facility] Platelet mean volume (Bld) [Entitic vol] 7.4 fL [facility] Platelets (Bld) [#/Vol] 401 10*3/uL High 130 - 400 10*3/uL [facility] RBC (Bld) [#/Vol] 3.56 10*6/uL Low 4.0 - 5.4 10*6/uL [facility] WBC (Bld) [#/Vol] 6.4 10*3/uL 3.6 - 11.0 10*3/uL [facility] No Panel Informationon 02-08 GFR COMMENT Average GFR for 70+ years old = 75. [facility] Interpretation and review of laboratory results Abnormal [facility] ABSOLUTE BASOPHIL COUNT 0.1 10*3/uL 0.0 - 0.2 10*3/uL [facility] Interpretation and review of laboratory results Abnormal [facility] BMP FASTINGon 02-08-2024 Anion gap [Moles/Vol] Negative Normal 8-16 [facility] Calcium [Mass/Vol] 8.9 mg/dL Normal 8.4-10.2 [facility] Chloride [Moles/Vol] 104 mmol/L Normal 98-107 [facility] Comment on above: Result Comment: Shonda matthews note: Triglyceride levels of 600mg/dL or higher may positively bias chloride results by approximately 2.1 mmol CO2 [Moles/Vol] 30 mmol/L Normal 22-30 [facility] Creatinine [Mass/Vol] 0.80 mg/dL Normal 0.7-1.2 [facility] EST. GFR, 89 ml/min/1.73sq.m Normal [facility] EST. GFR,Non 73 ml/min/1.73sq.m Normal [facility] GFR Information Average GFR for 70+ years old = 75. Normal [facility] Comment on above: Result Comment: Office Inspector aviva Kidney disease, GFR = <60. Kidney failure, GFR = <15. The GFR estimate is not adjusted for extreme body surface area or acute process, nor has it been validated for women or ethnic groups other than and . Glucose [Mass/Vol] 96 mg/dL Normal 70-100 [facility] Comment on above: Result Comment: NORMAL <100 mg/dL PREDIABETES 101-126 mg/dL DIABETES 126 mg/dL or higher Potassium [Moles/Vol] 4.3 mmol/L Normal 3.5-5.1 [facility] Sodium [Moles/Vol] 133 mmol/L Low 137-145 [facility] Urea nitrogen [Mass/Vol] 14 mg/dL Normal 7-20 [facility] C REACTIVE PROTEINon 02-07- 024 CRP [Mass/Vol] 22.2 mg/L High 0-10 [facility] 02-08-2024 ABSOLUTE BAS 0.1 10*3/uL Normal 0.0-0.2 [facility] ABSOLUTE EOS 0.2 10*3/uL Normal 0.0-0.7 [facility] ABSOLUTE NEUTROPHIL COUNT 3.2 10*3/uL Normal 1.4-6.5 [facility] Basophils/100 WBC (Bld) 1.0 % Normal 0.0-2.0 [facility] DTYPE AUTO DIFF Normal [facility] Eosinophils/100 WBC (Bld) 3.5 % Normal 0.0-11.0 [facility] Lymphocytes (Bld) [#/Vol] 1.5 10*3/uL Normal 1.2-3.4 [facility] Lymphocytes/100 WBC (Bld) 26.3 % Normal 20.0-55.0 [facility] Monocytes (Bld) [#/Vol] 0.6 10*3/uL Normal 0.0-0.7 [facility] Monocytes/100 WBC (Bld) 11.2 % High 0.0-10.0 [facility] Neutrophils/100 WBC (Bld) 58.0 % Normal 37.0-75.0 [facility] Erythrocyte distribution width (RBC) [Ratio] 15.3 % High 11.5-14.5 [facility] Hematocrit (Bld) [Volume fraction] 30.8 % Low 36.0-48.0 [facility] Hemoglobin (Bld) [Mass/Vol] 10.4 g/dL Low 12.0-16.0 [facility] MCH (RBC) [Entitic mass] 32.1 pg Normal 26.0-35.0 [facility] MCHC (RBC) [Mass/Vol] 33.7 g/dL Normal 27.0-37.0 [facility] MCV (RBC) [Entitic vol] 95.1 fL Normal 80.0-100.0 [facility] Platelet mean volume (Bld) [Entitic vol] 7.4 fL Normal 7.4-11.0 [facility] Platelets (Bld) [#/Vol] 368 10*3/uL Normal 130-400 [facility] RBC (Bld) [#/Vol] 3.24 10*6/uL Low 4.0-5.4 [facility] WBC (Bld) [#/Vol] 5.5 10*3/uL Normal 3.6-11.0 [facility] ESRon 02-08-2024 ESR (Bld) [Velocity] 75 mm/h High 0-30 [facility] Laboratory - Chemistry and C hemistry - challengeon 02-08-2024 Anion gap [Moles/Vol] Negative [facility] [facility] Calcium [Mass/Vol] 8.9 mg/dL [facility] Chloride [Moles/Vol] 104 mmol/L [facility] CO2 [Moles/Vol] 30 mmol/L [facility] Creatinine [Mass/Vol] 0.80 mg/dL [facility] CRP [Mass/Vol] 22.2 mg/L High 0 - 10 MG/L [facility] GFR/1.73 sq M.predicted among blacks MDRD (S/P/Bld) [Vol rate/Area] 89 mL/min/{1.73_m2} ml/min/1.73sq .m [facility] GFR/1.73 sq M.predicted among non-blacks MDRD (S/P/Bld) [Vol rate/Area] 73 mL/min/{1.73_m2} ml/min/1.73sq .m [facility] Glucose post fast [Mass/Vol] 96 mg/dL [facility] Potassium [Moles/Vol] 4.3 mmol/L [facility] Sodium [Moles/Vol] 133 mmol/L Low [facility] Urea nitrogen [Mass/Vol] 14 mg/dL [facility] Laboratory - Hematology and Cell countson 02-08-2024 ESR (Bld) [Velocity] 75 mm/h High [facility] Basophils/100 WBC (Bld) 1.0 % 0.0 - 2.0 % [facility] Differential cell count method Nom (Bld) AUTO DIFF % [facility] Eosinophils (Bld) [#/Vol] 0.2 10*3/uL 0.0 - 0.7 10*3/uL [facility] Eosinophils/100 WBC (Bld) 3.5 % 0.0 - 11.0 % [facility] Erythrocyte distribution width (RBC) [Ratio] 15.3 % High 11.5 - 14.5 % [facility] Hematocrit (Bld) [Volume fraction] 30.8 % Low 36.0 - 48.0 % [facility] Hemoglobin (Bld) [Mass/Vol] 10.4 g/dL Low [facility] Lymphocytes (Bld) [#/Vol] 1.5 10*3/uL 1.2 - 3.4 10*3/uL [facility] Lymphocytes/100 WBC (Bld) 26.3 % 20.0 - 55.0 % [facility] MCH (RBC) [Entitic mass] 32.1 pg 26.0 - 35.0 PG [facility] MCHC (RBC) [Mass/Vol] 33.7 g/dL [facility] MCV (RBC) [Entitic vol] 95.1 fL [facility] Monocytes (Bld) [#/Vol] 0.6 10*3/uL 0.0 - 0.7 10*3/uL [facility] Monocytes/100 WBC (Bld) 11.2 % High 0.0 - 10.0 % [facility] Neutrophils (Bld) [#/Vol] 3.2 10*3/uL 1.4 - 6.5 10*3/uL [facility] Neutrophils/100 WBC (Bld) 58.0 % 37.0 - 75.0 % [facility] Platelet mean volume (Bld) [Entitic vol] 7.4 fL [facility] Platelets (Bld) [#/Vol] 368 10*3/uL 130 - 400 10*3/uL [facility] RBC (Bld) [#/Vol] 3.24 10*6/uL Low 4.0 - 5.4 10*6/uL [facility] WBC (Bld) [#/Vol] 5.5 10*3/uL 3.6 - 11.0 10*3/uL [facility] No Panel Informationon 02-07 Interpretation and review of laboratory results Abnormal [facility] GFR COMMENT Average GFR for 70+ years old = 75. [facility] Interpretation and review of laboratory results Abnormal [facility] ABSOLUTE BASOPHIL COUNT 0.1 10*3/uL 0.0 - 0.2 10*3/uL [facility] Interpretation and review of laboratory results Abnormal [facility] BMP FASTINGon 02-07-2024 Anion gap [Moles/Vol] 1 mmol/L Low 8-16 [facility] Comment on above: Performed By: #### A CBC #### Testing performed at [place] [address] [place] [address] Calcium [Mass/Vol] 8.8 mg/dL Normal 8.4-10.2 [facility] Comment on above: Performed By: #### A CBC #### Testing performed at [place] [address] [place] [id number] Chloride [Moles/Vol] 105 mmol/L Normal 98-107 [facility] Comment on above: Result Comment: Plebowen matthews note: Triglyceride levels of 600mg/dL or higher may positively bias chloride results by approximately 2.1 mmol Performed By: #### A CBC #### Testing performed at [place] [id number] CO2 [Moles/Vol] 27 mmol/L Normal 22-30 [facility] Comment on above: Performed By: #### A CBC #### Testing performed at [place] [id number] Creatinine [Mass/Vol] 0.70 mg/dL Normal 0.7-1.2 [facility] Comment on above: Performed By: #### A CBC #### Testing performed at [address] [address] EST. GFR, 103 ml/min/1.73sq.m [facility] Comment on above: Performed By: #### A CBC #### Testing performed at [place] [id number] EST. GFR,Non 85 ml/min/1.73sq.m [facility] Comment on above: Performed By: #### A CBC #### Testing performed at [place] [id number] GFR Information Average GFR for 70+ years old = 75. Normal [facility] Comment on above: Result Comment: Office Inspector aviva Kidney disease, GFR = <60. Kidney failure, GFR = <15. The GFR estimate is not adjusted for extreme body surface area or acute process, nor has it been validated for women or ethnic groups other than and . Performed By: #### A CBC #### Testing performed at [place] [id number] Glucose [Mass/Vol] 95 mg/dL Normal 70-100 [facility] Comment on above: Result Comment: NORMAL <100 mg/dL PREDIABETES 101-126 mg/dL DIABETES 126 mg/dL or higher Performed By: #### A CBC #### Testing performed at [address] [place] [address] Potassium [Moles/Vol] 4.3 mmol/L Normal 3.5-5.1 [facility] Comment on above: Performed By: #### A CBC #### Testing performed at [address] [address] Sodium [Moles/Vol] 133 mmol/L Low 137-145 [facility] Comment on above: Performed By: #### A CBC #### Testing performed at [address] [address] Urea nitrogen [Mass/Vol] 11 mg/dL Normal 7-20 [facility] Comment on above: Performed By: #### A CBC #### Testing performed at [address] [address] C REACTIVE PROTEINon 024 CRP [Mass/Vol] 19.6 mg/L High 0-10 [facility] Comment on above: Performed By: #### A CBC #### Testing performed at [address] [address] CBCon 02-07-2024 ABSOLUTE BAS 0.0 10*3/uL Normal 0.0-0.2 [facility] Comment on above: Performed By: #### A CBC #### Testing performed at [address] [address] ABSOLUTE EOS 0.2 10*3/uL Normal 0.0-0.7 [facility] Comment on above: Performed By: #### A CBC #### Testing performed at [address] [address] ABSOLUTE NEUTROPHIL COUNT 2.8 10*3/uL Normal 1.4-6.5 [facility] Comment on above: Performed By: #### A CBC #### Testing performed at [address] [address] Basophils/100 WBC (Bld) 0.9 % Normal 0.0-2.0 [facility] Comment on above: Performed By: #### A CBC #### Testing performed at [place] [address] [place] [address] DTYPE AUTO DIFF Normal [facility] Comment on above: Performed By: #### A CBC #### Testing performed at [place] [address] [place] [address] Eosinophils/100 WBC (Bld) 3.8 % Normal 0.0-11.0 [facility] Comment on above: Performed By: #### A CBC #### Testing performed at [address] [address] Lymphocytes (Bld) [#/Vol] 1.4 10*3/uL Normal 1.2-3.4 [facility] Comment on above: Performed By: #### A CBC #### Testing performed at [address] [address] Lymphocytes/100 WBC (Bld) 28.3 % Normal 20.0-55.0 [facility] Comment on above: Performed By: #### A CBC #### Testing performed at [address] [address] Monocytes (Bld) [#/Vol] 0.6 10*3/uL Normal 0.0-0.7 [facility] Comment on above: Performed By: #### A CBC #### Testing performed at [address] [address] Monocytes/100 WBC (Bld) 12.4 % High 0.0-10.0 [facility] Comment on above: Performed By: #### A CBC #### Testing performed at [address] [address] Neutrophils/100 WBC (Bld) 54.6 % Normal 37.0-75.0 [facility] Comment on above: Performed By: #### A CBC #### Testing performed at [address] [address] Erythrocyte distribution width (RBC) [Ratio] 16.0 % High 11.5-14.5 [facility] Comment on above: Performed By: #### A CBC #### Testing performed at [address] [address] Hematocrit (Bld) [Volume fraction] 31.7 % Low 36.0-48.0 [facility] Comment on above: Performed By: #### A CBC #### Testing performed at [address] [address] Hemoglobin (Bld) [Mass/Vol] 10.5 g/dL Low 12.0-16.0 [facility] Comment on above: Performed By: #### A CBC #### Testing performed at [address] [address] MCH (RBC) [Entitic mass] 32.5 pg Normal 26.0-35.0 [facility] Comment on above: Performed By: #### A CBC #### Testing performed at [address] [address] MCHC (RBC) [Mass/Vol] 33.1 g/dL Normal 27.0-37.0 [facility] Comment on above: Performed By: #### A CBC #### Testing performed at [address] [address] MCV (RBC) [Entitic vol] 98.4 fL Normal 80.0-100.0 [facility] Comment on above: Performed By: #### A CBC #### Testing performed at [address] [address] Platelet mean volume (Bld) [Entitic vol] 7.2 fL Low 7.4-11.0 [facility] Comment on above: Performed By: #### A CBC #### Testing performed at [address] [address] Platelets (Bld) [#/Vol] 366 10*3/uL Normal 130-400 [facility] Comment on above: Performed By: #### A CBC #### Testing performed at [place] [address] [place] [address] RBC (Bld) [#/Vol] 3.23 10*6/uL Low 4.0-5.4 [facility] Comment on above: Performed By: #### A CBC #### Testing performed at [place] [address] [place] [address] WBC (Bld) [#/Vol] 5.1 10*3/uL Normal 3.6-11.0 [facility] Comment on above: Performed By: #### A CBC #### [place] [address] Laboratory - Chemistry and C hemistry - challengeon 02-07-2024 Anion gap [Moles/Vol] 1 mmol/L Low [facility] Calcium [Mass/Vol] 8.8 mg/dL [facility] Chloride [Moles/Vol] 105 mmol/L [facility] CO2 [Moles/Vol] 27 mmol/L [facility] Creatinine [Mass/Vol] 0.70 mg/dL [facility] CRP [Mass/Vol] 19.6 mg/L High 0 - 10 MG/L [facility] GFR/1.73 sq M.predicted among blacks MDRD (S/P/Bld) [Vol rate/Area] 103 mL/min/{1.73_m2} ml/min/1.73sq .m [facility] GFR/1.73 sq M.predicted among non-blacks MDRD (S/P/Bld) [Vol rate/Area] 85 mL/min/{1.73_m2} ml/min/1.73sq .m [facility] Glucose post fast [Mass/Vol] 95 mg/dL [facility] Potassium [Moles/Vol] 4.3 mmol/L [facility] Sodium [Moles/Vol] 133 mmol/L Low [facility] Urea nitrogen [Mass/Vol] 11 mg/dL [facility] Laboratory - Hematology and Cell countson 02-07-2024 Basophils/100 WBC (Bld) 0.9 % 0.0 - 2.0 % [facility] Differential cell count method Nom (Bld) AUTO DIFF % [facility] Eosinophils (Bld) [#/Vol] 0.2 10*3/uL 0.0 - 0.7 10*3/uL [facility] Eosinophils/100 WBC (Bld) 3.8 % 0.0 - 11.0 % [facility] Erythrocyte distribution width (RBC) [Ratio] 16.0 % High 11.5 - 14.5 % [facility] Hematocrit (Bld) [Volume fraction] 31.7 % Low 36.0 - 48.0 % [facility] Hemoglobin (Bld) [Mass/Vol] 10.5 g/dL Low [facility] Lymphocytes (Bld) [#/Vol] 1.4 10*3/uL 1.2 - 3.4 10*3/uL [facility] Lymphocytes/100 WBC (Bld) 28.3 % 20.0 - 55.0 % [facility] MCH (RBC) [Entitic mass] 32.5 pg 26.0 - 35.0 PG [facility] MCHC (RBC) [Mass/Vol] 33.1 g/dL [facility] MCV (RBC) [Entitic vol] 98.4 fL [facility] Monocytes (Bld) [#/Vol] 0.6 10*3/uL 0.0 - 0.7 10*3/uL [facility] Monocytes/100 WBC (Bld) 12.4 % High 0.0 - 10.0 % [facility] Neutrophils (Bld) [#/Vol] 2.8 10*3/uL 1.4 - 6.5 10*3/uL [facility] Neutrophils/100 WBC (Bld) 54.6 % 37.0 - 75.0 % [facility] Platelet mean volume (Bld) [Entitic vol] 7.2 fL Low [facility] Platelets (Bld) [#/Vol] 366 10*3/uL 130 - 400 10*3/uL [facility] RBC (Bld) [#/Vol] 3.23 10*6/uL Low 4.0 - 5.4 10*6/uL [facility] WBC (Bld) [#/Vol] 5.1 10*3/uL 3.6 - 11.0 10*3/uL [facility] No Panel Informationon 02-06 ABSOLUTE BASOPHIL COUNT 0.0 10*3/uL 0.0 - 0.2 10*3/uL [facility] Interpretation and review of laboratory results Abnormal [facility] GFR COMMENT Average GFR for 70+ years old = 75. [facility] Interpretation and review of laboratory results Abnormal [facility] BMP FASTINGon 02-06-2024 Anion gap [Moles/Vol] 2 mmol/L Low 8-16 [facility] Calcium [Mass/Vol] 8.6 mg/dL Normal 8.4-10.2 [facility] Chloride [Moles/Vol] 104 mmol/L Normal 98-107 [facility] Comment on above: Result Comment: Shonda matthews note: Triglyceride levels of 600mg/dL or higher may positively bias chloride results by approximately 2.1 mmol CO2 [Moles/Vol] 29 mmol/L Normal 22-30 [facility] Creatinine [Mass/Vol] 0.80 mg/dL Normal 0.7-1.2 [facility] EST. GFR, 89 ml/min/1.73sq.m Normal [facility] EST. GFR,Non 73 ml/min/1.73sq.m Normal [facility] GFR Information Average GFR for 70+ years old = 75. Normal [facility] Comment on above: Result Comment: Office Inspector aviva Kidney disease, GFR = <60. Kidney failure, GFR = <15. The GFR estimate is not adjusted for extreme body surface area or acute process, nor has it been validated for women or ethnic groups other than and . Glucose [Mass/Vol] 100 mg/dL Normal 70-100 [facility] Comment on above: Result Comment: NORMAL <100 mg/dL PREDIABETES 101-126 mg/dL DIABETES 126 mg/dL or higher Potassium [Moles/Vol] 4.4 mmol/L Normal 3.5-5.1 [facility] Sodium [Moles/Vol] 135 mmol/L Low 137-145 [facility] Urea nitrogen [Mass/Vol] 17 mg/dL Normal 7-20 [facility] C REACTIVE PROTEINon 024 CRP [Mass/Vol] 22.7 mg/L High 0-10 [facility] CBCon 02-06-2024 ABSOLUTE BAS 0.0 10*3/uL Normal 0.0-0.2 [facility] ABSOLUTE EOS 0.2 10*3/uL Normal 0.0-0.7 [facility] ABSOLUTE NEUTROPHIL COUNT 3.4 10*3/uL Normal 1.4-6.5 [facility] Basophils/100 WBC (Bld) 0.8 % Normal 0.0-2.0 [facility] DTYPE AUTO DIFF Normal [facility] Eosinophils/100 WBC (Bld) 2.8 % Normal 0.0-11.0 [facility] Lymphocytes (Bld) [#/Vol] 1.5 10*3/uL Normal 1.2-3.4 [facility] Lymphocytes/100 WBC (Bld) 25.0 % Normal 20.0-55.0 [facility] Monocytes (Bld) [#/Vol] 0.8 10*3/uL High 0.0-0.7 [facility] Monocytes/100 WBC (Bld) 12.9 % High 0.0-10.0 [facility] Neutrophils/100 WBC (Bld) 58.5 % Normal 37.0-75.0 [facility] Erythrocyte distribution width (RBC) [Ratio] 15.2 % High 11.5-14.5 [facility] Hematocrit (Bld) [Volume fraction] 29.6 % Low 36.0-48.0 [facility] Hemoglobin (Bld) [Mass/Vol] 10.1 g/dL Low 12.0-16.0 [facility] MCH (RBC) [Entitic mass] 32.5 pg Normal 26.0-35.0 [facility] MCHC (RBC) [Mass/Vol] 34.0 g/dL Normal 27.0-37.0 [facility] MCV (RBC) [Entitic vol] 95.7 fL Normal 80.0-100.0 [facility] Platelet mean volume (Bld) [Entitic vol] 6.7 fL Low 7.4-11.0 [facility] Platelets (Bld) [#/Vol] 365 10*3/uL Normal 130-400 [facility] RBC (Bld) [#/Vol] 3.10 10*6/uL Low 4.0-5.4 [facility] WBC (Bld) [#/Vol] 5.8 10*3/uL Normal 3.6-11.0 [facility] Laboratory - Chemistry and C hemistry - challengeon 02-06-2024 Anion gap [Moles/Vol] 2 mmol/L Low [facility] Calcium [Mass/Vol] 8.6 mg/dL [facility] Chloride [Moles/Vol] 104 mmol/L [facility] CO2 [Moles/Vol] 29 mmol/L [facility] Creatinine [Mass/Vol] 0.80 mg/dL [facility] CRP [Mass/Vol] 22.7 mg/L High 0 - 10 MG/L [facility] GFR/1.73 sq M.predicted among blacks MDRD (S/P/Bld) [Vol rate/Area] 89 mL/min/{1.73_m2} ml/min/1.73sq .m [facility] GFR/1.73 sq M.predicted among non-blacks MDRD (S/P/Bld) [Vol rate/Area] 73 mL/min/{1.73_m2} ml/min/1.73sq .m [facility] Glucose post fast [Mass/Vol] 100 mg/dL [facility] Potassium [Moles/Vol] 4.4 mmol/L [facility] Sodium [Moles/Vol] 135 mmol/L Low [facility] Urea nitrogen [Mass/Vol] 17 mg/dL [facility] Laboratory - Hematology and Cell countson 02-06-2024 Basophils/100 WBC (Bld) 0.8 % 0.0 - 2.0 % [facility] Differential cell count method Nom (Bld) AUTO DIFF % [facility] Eosinophils (Bld) [#/Vol] 0.2 10*3/uL 0.0 - 0.7 10*3/uL [facility] Eosinophils/100 WBC (Bld) 2.8 % 0.0 - 11.0 % [facility] Erythrocyte distribution width (RBC) [Ratio] 15.2 % High 11.5 - 14.5 % [facility] Hematocrit (Bld) [Volume fraction] 29.6 % Low 36.0 - 48.0 % [facility] Hemoglobin (Bld) [Mass/Vol] 10.1 g/dL Low [facility] Lymphocytes (Bld) [#/Vol] 1.5 10*3/uL 1.2 - 3.4 10*3/uL [facility] Lymphocytes/100 WBC (Bld) 25.0 % 20.0 - 55.0 % [facility] MCH (RBC) [Entitic mass] 32.5 pg 26.0 - 35.0 PG [facility] MCHC (RBC) [Mass/Vol] 34.0 g/dL [facility] MCV (RBC) [Entitic vol] 95.7 fL [facility] Monocytes (Bld) [#/Vol] 0.8 10*3/uL High 0.0 - 0.7 10*3/uL [facility] Monocytes/100 WBC (Bld) 12.9 % High 0.0 - 10.0 % [facility] Neutrophils (Bld) [#/Vol] 3.4 10*3/uL 1.4 - 6.5 10*3/uL [facility] Neutrophils/100 WBC (Bld) 58.5 % 37.0 - 75.0 % [facility] Platelet mean volume (Bld) [Entitic vol] 6.7 fL Low [facility] Platelets (Bld) [#/Vol] 365 10*3/uL 130 - 400 10*3/uL [facility] RBC (Bld) [#/Vol] 3.10 10*6/uL Low 4.0 - 5.4 10*6/uL [facility] WBC (Bld) [#/Vol] 5.8 10*3/uL 3.6 - 11.0 10*3/uL [facility] No Panel Informationon 02-05 GFR COMMENT Average GFR for 70+ years old = 75. [facility] Interpretation and review of laboratory results Abnormal [facility] ABSOLUTE BASOPHIL COUNT 0.0 10*3/uL 0.0 - 0.2 10*3/uL [facility] Interpretation and review of laboratory results Abnormal [facility] BMP FASTINGon 02-04-2023 Anion gap [Moles/Vol] 1 mmol/L Low 8-16 [facility] Comment on above: Performed By: #### A CBC ####Testing performed at [address] [address] Calcium [Mass/Vol] 8.8 mg/dL Normal 8.4-10.2 [facility] Comment on above: Performed By: #### A CBC ####Testing performed at [address] [address] Chloride [Moles/Vol] 104 mmol/L Normal 98-107 [facility] Comment on above: Result Comment: Shonda matthews note: Triglyceride levels of 600mg/dL or higher may positively bias chloride results by approximately 2.1 mmol Performed By: #### A CBC ####Testing performed at [address] [address] CO2 [Moles/Vol] 30 mmol/L Normal 22-30 [facility] Comment on above: Performed By: #### A CBC ####Testing performed at [address] [address] Creatinine [Mass/Vol] 0.80 mg/dL Normal 0.7-1.2 [facility] Comment on above: Performed By: #### A CBC ####Testing performed at [address] [address] EST. GFR, 89 ml/min/1.73sq.m [facility] Comment on above: Performed By: #### A CBC ####Testing performed at [address] [address] EST. GFR,Non 73 ml/min/1.73sq.m [facility] Comment on above: Performed By: #### A CBC ####Testing performed at [address] [address] GFR Information Average GFR for 70+ years old = 75. Normal [facility] Comment on above: Result Comment: Office Inspector aviva Kidney disease, GFR = <60. Kidney failure, GFR = <15. The GFR estimate is not adjusted for extreme body surface area or acute process, nor has it been validated for women or ethnic groups other than and . Performed By: #### A CBC ####Testing performed at [address] [address] Glucose [Mass/Vol] 101 mg/dL High 70-100 [facility] Comment on above: Result Comment: NORMAL <100 mg/dL PREDIABETES 101-126 mg/dL DIABETES 126 mg/dL or higher Performed By: #### A CBC ####Testing performed at [address] [address] Potassium [Moles/Vol] 4.3 mmol/L Normal 3.5-5.1 [facility] Comment on above: Performed By: #### A CBC ####Testing performed at [address] [address] Sodium [Moles/Vol] 135 mmol/L Low 137-145 [facility] Comment on above: Performed By: #### A CBC ####Testing performed at [address] [address] Urea nitrogen [Mass/Vol] 14 mg/dL Normal 7-20 [facility] Comment on above: Performed By: #### A CBC ####Testing performed at [address] [address] C REACTIVE PROTEINon 02-04- 024 CRP [Mass/Vol] 21.0 mg/L High 0-10 [facility] Comment on above: Performed By: #### A CBC ####Testing performed at [address] [address] CBCon 02-05-2024 ABSOLUTE BAS 0.0 10*3/uL Normal 0.0-0.2 [facility] Comment on above: Performed By: #### A CBC ####Testing performed at [address] [place] [address] ABSOLUTE EOS 0.1 10*3/uL Normal 0.0-0.7 [facility] Comment on above: Performed By: #### A CBC ####Testing performed at [address] [address] ABSOLUTE NEUTROPHIL COUNT 3.1 10*3/uL Normal 1.4-6.5 [facility] Comment on above: Performed By: #### A CBC ####Testing performed at [address] [address] Basophils/100 WBC (Bld) 0.9 % Normal 0.0-2.0 [facility] Comment on above: Performed By: #### A CBC ####Testing performed at [address] [place] [address] DTYPE AUTO DIFF Normal [facility] Comment on above: Performed By: #### A CBC ####Testing performed at [address] [place] [address] Eosinophils/100 WBC (Bld) 2.6 % Normal 0.0-11.0 [facility] Comment on above: Performed By: #### A CBC ####Testing performed at [address] [place] [address] Lymphocytes (Bld) [#/Vol] 1.2 10*3/uL Normal 1.2-3.4 [facility] Comment on above: Performed By: #### A CBC ####Testing performed at [address] [place] [address] Lymphocytes/100 WBC (Bld) 23.7 % Normal 20.0-55.0 [facility] Comment on above: Performed By: #### A CBC ####Testing performed at [address] [address] Monocytes (Bld) [#/Vol] 0.6 10*3/uL Normal 0.0-0.7 [facility] Comment on above: Performed By: #### A CBC ####Testing performed at [address] [address] Monocytes/100 WBC (Bld) 11.8 % High 0.0-10.0 [facility] Comment on above: Performed By: #### A CBC ####Testing performed at [place] [id number] Neutrophils/100 WBC (Bld) 61.0 % Normal 37.0-75.0 [facility] Comment on above: Performed By: #### A CBC ####[place] [address] Erythrocyte distribution width (RBC) [Ratio] 15.2 % High 11.5-14.5 [facility] Comment on above: Performed By: #### A CBC ####Testing performed at [address] [address] Hematocrit (Bld) [Volume fraction] 30.8 % Low 36.0-48.0 [facility] Comment on above: Performed By: #### A CBC ####Testing performed at [address] [address] Hemoglobin (Bld) [Mass/Vol] 10.4 g/dL Low 12.0-16.0 [facility] Comment on above: Performed By: #### A CBC ####Testing performed at [address] [address] MCH (RBC) [Entitic mass] 32.3 pg Normal 26.0-35.0 [facility] Comment on above: Performed By: #### A CBC ####Testing performed at [address] [address] MCHC (RBC) [Mass/Vol] 33.7 g/dL Normal 27.0-37.0 [facility] Comment on above: Performed By: #### A CBC ####Testing performed at [address] [address] MCV (RBC) [Entitic vol] 95.8 fL Normal 80.0-100.0 [facility] Comment on above: Performed By: #### A CBC ####Testing performed at [address] [address] Platelet mean volume (Bld) [Entitic vol] 6.6 fL Low 7.4-11.0 [facility] Comment on above: Performed By: #### A CBC ####[place] [address] Platelets (Bld) [#/Vol] 378 10*3/uL Normal 130-400 [facility] Comment on above: Performed By: #### A CBC ####Testing performed at [address] [address] RBC (Bld) [#/Vol] 3.22 10*6/uL Low 4.0-5.4 [facility] Comment on above: Performed By: #### A CBC ####Testing performed at [address] [address] WBC (Bld) [#/Vol] 5.0 10*3/uL Normal 3.6-11.0 [facility] Comment on above: Performed By: #### A CBC ####Testing performed at [address] [address] Laboratory - Chemistry and C hemistry - challengeon 02-05-2024 Anion gap [Moles/Vol] 1 mmol/L Low [facility] Calcium [Mass/Vol] 8.8 mg/dL [facility] Chloride [Moles/Vol] 104 mmol/L [facility] CO2 [Moles/Vol] 30 mmol/L [facility] Creatinine [Mass/Vol] 0.80 mg/dL [facility] CRP [Mass/Vol] 21.0 mg/L High 0 - 10 MG/L [facility] GFR/1.73 sq M.predicted among blacks MDRD (S/P/Bld) [Vol rate/Area] 89 mL/min/{1.73_m2} ml/min/1.73sq .m [facility] GFR/1.73 sq M.predicted among non-blacks MDRD (S/P/Bld) [Vol rate/Area] 73 mL/min/{1.73_m2} ml/min/1.73sq .m [facility] Glucose post fast [Mass/Vol] 101 mg/dL High [facility] Potassium [Moles/Vol] 4.3 mmol/L [facility] Sodium [Moles/Vol] 135 mmol/L Low [facility] Urea nitrogen [Mass/Vol] 14 mg/dL [facility] Laboratory - Hematology and Cell countson 02-05-2024 Basophils/100 WBC (Bld) 0.9 % 0.0 - 2.0 % [facility] Differential cell count method Nom (Bld) AUTO DIFF % [facility] Eosinophils (Bld) [#/Vol] 0.1 10*3/uL 0.0 - 0.7 10*3/uL [facility] Eosinophils/100 WBC (Bld) 2.6 % 0.0 - 11.0 % [facility] Erythrocyte distribution width (RBC) [Ratio] 15.2 % High 11.5 - 14.5 % [facility] Hematocrit (Bld) [Volume fraction] 30.8 % Low 36.0 - 48.0 % [facility] Hemoglobin (Bld) [Mass/Vol] 10.4 g/dL Low [facility] Lymphocytes (Bld) [#/Vol] 1.2 10*3/uL 1.2 - 3.4 10*3/uL [facility] Lymphocytes/100 WBC (Bld) 23.7 % 20.0 - 55.0 % [facility] MCH (RBC) [Entitic mass] 32.3 pg 26.0 - 35.0 PG [facility] MCHC (RBC) [Mass/Vol] 33.7 g/dL [facility] MCV (RBC) [Entitic vol] 95.8 fL [facility] Monocytes (Bld) [#/Vol] 0.6 10*3/uL 0.0 - 0.7 10*3/uL [facility] Monocytes/100 WBC (Bld) 11.8 % High 0.0 - 10.0 % [facility] Neutrophils (Bld) [#/Vol] 3.1 10*3/uL 1.4 - 6.5 10*3/uL [facility] Neutrophils/100 WBC (Bld) 61.0 % 37.0 - 75.0 % [facility] Platelet mean volume (Bld) [Entitic vol] 6.6 fL Low [facility] Platelets (Bld) [#/Vol] 378 10*3/uL 130 - 400 10*3/uL [facility] RBC (Bld) [#/Vol] 3.22 10*6/uL Low 4.0 - 5.4 10*6/uL [facility] WBC (Bld) [#/Vol] 5.0 10*3/uL 3.6 - 11.0 10*3/uL [facility] No Panel Informationon 02-04 GFR COMMENT Average GFR for 70+ years old = 75. [facility] Interpretation and review of laboratory results Abnormal [facility] ABSOLUTE BASOPHIL COUNT 0.0 10*3/uL 0.0 - 0.2 10*3/uL [facility] Interpretation and review of laboratory results Abnormal [facility] BMP FASTINGon 02-04-2024 Anion gap [Moles/Vol] 1 mmol/L Low 8-16 [facility] Calcium [Mass/Vol] 8.8 mg/dL Normal 8.4-10.2 [facility] Chloride [Moles/Vol] 104 mmol/L Normal 98-107 [facility] Comment on above: Result Comment: Shonda matthews note: Triglyceride levels of 600mg/dL or higher may positively bias chloride results by approximately 2.1 mmol CO2 [Moles/Vol] 31 mmol/L High 22-30 [facility] Creatinine [Mass/Vol] 0.80 mg/dL Normal 0.7-1.2 [facility] EST. GFR, 89 ml/min/1.73sq.m Normal [facility] EST. GFR,Non 73 ml/min/1.73sq.m Normal [facility] GFR Information Average GFR for 70+ years old = 75. Normal [facility] Comment on above: Result Comment: Office Inspector aviva Kidney disease, GFR = <60. Kidney failure, GFR = <15. The GFR estimate is not adjusted for extreme body surface area or acute process, nor has it been validated for women or ethnic groups other than and . Glucose [Mass/Vol] 96 mg/dL Normal 70-100 [facility] Comment on above: Result Comment: NORMAL <100 mg/dL PREDIABETES 101-126 mg/dL DIABETES 126 mg/dL or higher Potassium [Moles/Vol] 4.4 mmol/L Normal 3.5-5.1 [facility] Sodium [Moles/Vol] 136 mmol/L Low 137-145 [facility] Urea nitrogen [Mass/Vol] 18 mg/dL Normal 7-20 [facility] C REACTIVE PROTEINon 024 CRP [Mass/Vol] 21.4 mg/L High 0-10 [facility] CBCon 02-04-2024 ABSOLUTE BAS 0.0 10*3/uL Normal 0.0-0.2 [facility] ABSOLUTE EOS 0.2 10*3/uL Normal 0.0-0.7 [facility] ABSOLUTE NEUTROPHIL COUNT 3.5 10*3/uL Normal 1.4-6.5 [facility] Basophils/100 WBC (Bld) 0.7 % Normal 0.0-2.0 [facility] DTYPE AUTO DIFF Normal [facility] Eosinophils/100 WBC (Bld) 3.2 % Normal 0.0-11.0 [facility] Lymphocytes (Bld) [#/Vol] 1.5 10*3/uL Normal 1.2-3.4 [facility] Lymphocytes/100 WBC (Bld) 24.7 % Normal 20.0-55.0 [facility] Monocytes (Bld) [#/Vol] 0.8 10*3/uL High 0.0-0.7 [facility] Monocytes/100 WBC (Bld) 12.5 % High 0.0-10.0 [facility] Neutrophils/100 WBC (Bld) 58.9 % Normal 37.0-75.0 [facility] Erythrocyte distribution width (RBC) [Ratio] 15.5 % High 11.5-14.5 [facility] Hematocrit (Bld) [Volume fraction] 30.0 % Low 36.0-48.0 [facility] Hemoglobin (Bld) [Mass/Vol] 10.2 g/dL Low 12.0-16.0 [facility] MCH (RBC) [Entitic mass] 32.4 pg Normal 26.0-35.0 [facility] MCHC (RBC) [Mass/Vol] 33.8 g/dL Normal 27.0-37.0 [facility] MCV (RBC) [Entitic vol] 95.7 fL Normal 80.0-100.0 [facility] Platelet mean volume (Bld) [Entitic vol] 6.8 fL Low 7.4-11.0 [facility] Platelets (Bld) [#/Vol] 415 10*3/uL High 130-400 [facility] RBC (Bld) [#/Vol] 3.14 10*6/uL Low 4.0-5.4 [facility] WBC (Bld) [#/Vol] 6.0 10*3/uL Normal 3.6-11.0 [facility] Laboratory - Chemistry and C hemistry - challengeon 02-04-2024 Anion gap [Moles/Vol] 1 mmol/L Low [facility] Calcium [Mass/Vol] 8.8 mg/dL [facility] Chloride [Moles/Vol] 104 mmol/L [facility] CO2 [Moles/Vol] 31 mmol/L High [facility] Creatinine [Mass/Vol] 0.80 mg/dL [facility] CRP [Mass/Vol] 21.4 mg/L High 0 - 10 MG/L [facility] GFR/1.73 sq M.predicted among blacks MDRD (S/P/Bld) [Vol rate/Area] 89 mL/min/{1.73_m2} ml/min/1.73sq .m [facility] GFR/1.73 sq M.predicted among non-blacks MDRD (S/P/Bld) [Vol rate/Area] 73 mL/min/{1.73_m2} ml/min/1.73sq .m [facility] Glucose post fast [Mass/Vol] 96 mg/dL [facility] Potassium [Moles/Vol] 4.4 mmol/L [facility] Sodium [Moles/Vol] 136 mmol/L Low [facility] Urea nitrogen [Mass/Vol] 18 mg/dL [facility] Laboratory - Hematology and Cell countson 02-04-2024 Basophils/100 WBC (Bld) 0.7 % 0.0 - 2.0 % [facility] Differential cell count method Nom (Bld) AUTO DIFF % [facility] Eosinophils (Bld) [#/Vol] 0.2 10*3/uL 0.0 - 0.7 10*3/uL [facility] Eosinophils/100 WBC (Bld) 3.2 % 0.0 - 11.0 % [facility] Erythrocyte distribution width (RBC) [Ratio] 15.5 % High 11.5 - 14.5 % [facility] Hematocrit (Bld) [Volume fraction] 30.0 % Low 36.0 - 48.0 % [facility] Hemoglobin (Bld) [Mass/Vol] 10.2 g/dL Low [facility] Lymphocytes (Bld) [#/Vol] 1.5 10*3/uL 1.2 - 3.4 10*3/uL [facility] Lymphocytes/100 WBC (Bld) 24.7 % 20.0 - 55.0 % [facility] MCH (RBC) [Entitic mass] 32.4 pg 26.0 - 35.0 PG [facility] MCHC (RBC) [Mass/Vol] 33.8 g/dL [facility] MCV (RBC) [Entitic vol] 95.7 fL [facility] Monocytes (Bld) [#/Vol] 0.8 10*3/uL High 0.0 - 0.7 10*3/uL [facility] Monocytes/100 WBC (Bld) 12.5 % High 0.0 - 10.0 % [facility] Neutrophils (Bld) [#/Vol] 3.5 10*3/uL 1.4 - 6.5 10*3/uL [facility] Neutrophils/100 WBC (Bld) 58.9 % 37.0 - 75.0 % [facility] Platelet mean volume (Bld) [Entitic vol] 6.8 fL Low [facility] Platelets (Bld) [#/Vol] 415 10*3/uL High 130 - 400 10*3/uL [facility] RBC (Bld) [#/Vol] 3.14 10*6/uL Low 4.0 - 5.4 10*6/uL [facility] WBC (Bld) [#/Vol] 6.0 10*3/uL 3.6 - 11.0 10*3/uL [facility] No Panel Informationon 02-03 ABSOLUTE BASOPHIL COUNT 0.0 10*3/uL 0.0 - 0.2 10*3/uL [facility] Interpretation and review of laboratory results Abnormal [facility] GFR COMMENT Average GFR for 70+ years old = 75. [facility] Interpretation and review of laboratory results Abnormal [facility] BMP FASTINGon 02-03-2024 Anion gap [Moles/Vol] 2 mmol/L Low 8-16 [facility] Calcium [Mass/Vol] 9.1 mg/dL Normal 8.4-10.2 [facility] Chloride [Moles/Vol] 104 mmol/L Normal 98-107 [facility] Comment on above: Result Comment: Shonda matthews note: Triglyceride levels of 600mg/dL or higher may positively bias chloride results by approximately 2.1 mmol CO2 [Moles/Vol] 29 mmol/L Normal 22-30 [facility] Creatinine [Mass/Vol] 0.90 mg/dL Normal 0.7-1.2 [facility] EST. GFR, 77 ml/min/1.73sq.m Normal [facility] EST. GFR,Non 64 ml/min/1.73sq.m Normal [facility] GFR Information Average GFR for 70+ years old = 75. Normal [facility] Comment on above: Result Comment: Office Inspector aviva Kidney disease, GFR = <60. Kidney failure, GFR = <15. The GFR estimate is not adjusted for extreme body surface area or acute process, nor has it been validated for women or ethnic groups other than and . Glucose [Mass/Vol] 100 mg/dL Normal 70-100 [facility] Comment on above: Result Comment: NORMAL <100 mg/dL PREDIABETES 101-126 mg/dL DIABETES 126 mg/dL or higher Potassium [Moles/Vol] 4.4 mmol/L Normal 3.5-5.1 [facility] Sodium [Moles/Vol] 135 mmol/L Low 137-145 [facility] Urea nitrogen [Mass/Vol] 17 mg/dL Normal 7-20 [facility] C REACTIVE PROTEINon 024 CRP [Mass/Vol] 21.9 mg/L High 0-10 [facility] CBCon 02-03-2024 ABSOLUTE BAS 0.1 10*3/uL Normal 0.0-0.2 [facility] ABSOLUTE EOS 0.2 10*3/uL Normal 0.0-0.7 [facility] ABSOLUTE NEUTROPHIL COUNT 3.6 10*3/uL Normal 1.4-6.5 [facility] Basophils/100 WBC (Bld) 1.2 % Normal 0.0-2.0 [facility] DTYPE AUTO DIFF Normal [facility] Eosinophils/100 WBC (Bld) 3.4 % Normal 0.0-11.0 [facility] Lymphocytes (Bld) [#/Vol] 1.6 10*3/uL Normal 1.2-3.4 [facility] Lymphocytes/100 WBC (Bld) 26.1 % Normal 20.0-55.0 [facility] Monocytes (Bld) [#/Vol] 0.7 10*3/uL Normal 0.0-0.7 [facility] Monocytes/100 WBC (Bld) 11.8 % High 0.0-10.0 [facility] Neutrophils/100 WBC (Bld) 57.5 % Normal 37.0-75.0 [facility] Erythrocyte distribution width (RBC) [Ratio] 15.0 % High 11.5-14.5 [facility] Hematocrit (Bld) [Volume fraction] 31.8 % Low 36.0-48.0 [facility] Hemoglobin (Bld) [Mass/Vol] 10.7 g/dL Low 12.0-16.0 [facility] MCH (RBC) [Entitic mass] 32.3 pg Normal 26.0-35.0 [facility] MCHC (RBC) [Mass/Vol] 33.7 g/dL Normal 27.0-37.0 [facility] MCV (RBC) [Entitic vol] 95.8 fL Normal 80.0-100.0 [facility] Platelet mean volume (Bld) [Entitic vol] 6.4 fL Low 7.4-11.0 [facility] Platelets (Bld) [#/Vol] 472 10*3/uL High 130-400 [facility] RBC (Bld) [#/Vol] 3.31 10*6/uL Low 4.0-5.4 [facility] WBC (Bld) [#/Vol] 6.3 10*3/uL Normal 3.6-11.0 [facility] Laboratory - Chemistry and C hemistry - challengeon 02-03-2024 Bilirubin Ql (U) Negative NEGATIVE [facility] pH (U) 7.0 [pH] 5.0 - 7.0 [facility] Specific gravity (U) [Rel density] 1.015 1.010 - 1.025 [facility] Urobilinogen (U) [Mass/Vol] 0.2 mg/dL [facility] Anion gap [Moles/Vol] 2 mmol/L Low [facility] Calcium [Mass/Vol] 9.1 mg/dL [facility] Chloride [Moles/Vol] 104 mmol/L [facility] CO2 [Moles/Vol] 29 mmol/L [facility] Creatinine [Mass/Vol] 0.90 mg/dL [facility] CRP [Mass/Vol] 21.9 mg/L High 0 - 10 MG/L [facility] GFR/1.73 sq M.predicted among blacks MDRD (S/P/Bld) [Vol rate/Area] 77 mL/min/{1.73_m2} ml/min/1.73sq .m [facility] GFR/1.73 sq M.predicted among non-blacks MDRD (S/P/Bld) [Vol rate/Area] 64 mL/min/{1.73_m2} ml/min/1.73sq .m [facility] Glucose post fast [Mass/Vol] 100 mg/dL [facility] Potassium [Moles/Vol] 4.4 mmol/L [facility] Sodium [Moles/Vol] 135 mmol/L Low [facility] Urea nitrogen [Mass/Vol] 17 mg/dL [facility] Laboratory - Hematology and Cell countson 02-03-2024 Hemoglobin Ql (U) Negative NEGATIVE [facility] Basophils/100 WBC (Bld) 1.2 % 0.0 - 2.0 % [facility] Differential cell count method Nom (Bld) AUTO DIFF % [facility] Eosinophils (Bld) [#/Vol] 0.2 10*3/uL 0.0 - 0.7 10*3/uL [facility] Eosinophils/100 WBC (Bld) 3.4 % 0.0 - 11.0 % [facility] Erythrocyte distribution width (RBC) [Ratio] 15.0 % High 11.5 - 14.5 % [facility] Hematocrit (Bld) [Volume fraction] 31.8 % Low 36.0 - 48.0 % [facility] Hemoglobin (Bld) [Mass/Vol] 10.7 g/dL Low [facility] Lymphocytes (Bld) [#/Vol] 1.6 10*3/uL 1.2 - 3.4 10*3/uL [facility] Lymphocytes/100 WBC (Bld) 26.1 % 20.0 - 55.0 % [facility] MCH (RBC) [Entitic mass] 32.3 pg 26.0 - 35.0 PG [facility] MCHC (RBC) [Mass/Vol] 33.7 g/dL [facility] MCV (RBC) [Entitic vol] 95.8 fL [facility] Monocytes (Bld) [#/Vol] 0.7 10*3/uL 0.0 - 0.7 10*3/uL [facility] Monocytes/100 WBC (Bld) 11.8 % High 0.0 - 10.0 % [facility] Neutrophils (Bld) [#/Vol] 3.6 10*3/uL 1.4 - 6.5 10*3/uL [facility] Neutrophils/100 WBC (Bld) 57.5 % 37.0 - 75.0 % [facility] Platelet mean volume (Bld) [Entitic vol] 6.4 fL Low [facility] Platelets (Bld) [#/Vol] 472 10*3/uL High 130 - 400 10*3/uL [facility] RBC (Bld) [#/Vol] 3.31 10*6/uL Low 4.0 - 5.4 10*6/uL [facility] WBC (Bld) [#/Vol] 6.3 10*3/uL 3.6 - 11.0 10*3/uL [facility] Laboratory - Specimen inform ationon 02-03-2024 Clarity (U) CLEAR CLEAR [facility] Color (U) YELLOW YELLOW [facility] Laboratory - Urinalysison Glucose Test strip (U) [Mass/Vol] Negative NEGATIVE mg/dl [facility] Ketones (U) [Mass/Vol] Negative NEGATIVE mg/dl [facility] Leukocyte esterase Test strip Ql (U) Negative NEGATIVE [facility] Nitrite Ql (U) Negative NEGATIVE [facility] Protein Ql (U) Negative NEGATIVE mg/dl [facility] No Panel Informationon 02-02 [facility] GFR COMMENT Average GFR for 70+ years old = 75. [facility] Interpretation and review of laboratory results Abnormal [facility] ABSOLUTE BASOPHIL COUNT 0.1 10*3/uL 0.0 - 0.2 10*3/uL [facility] Interpretation and review of laboratory results Abnormal [facility] URINE MACROSCOPICon 02-03-20 Bilirubin Ql (U) Negative Normal NEGATIVE [facility] Clarity (U) CLEAR Normal CLEAR [facility] Color (U) YELLOW Normal YELLOW [facility] Glucose Ql (U) Negative Normal NEGATIVE [facility] pH (U) 7.0 [pH] Normal 5.0-7.0 [facility] URINE HEMOGLOBIN Negative Normal NEGATIVE [facility] URINE KETONE Negative Normal NEGATIVE [facility] URINE LEUKOTEST Negative Normal NEGATIVE [facility] URINE NITRATES Negative Normal NEGATIVE [facility] URINE SPEC GRAVITY 1.015 Normal 1.010-1.025 [facility] URINE TOTAL PROTEIN Negative Normal NEGATIVE [facility] Urobilinogen Qn (U) 0.2 {Monique'U}/dL Normal 0.2-1.0 [facility] BMP FASTINGon 02-02-2024 Anion gap [Moles/Vol] 1 mmol/L Low 8-16 [facility] Comment on above: Performed By: #### A CBC #### [place] [address] Calcium [Mass/Vol] 8.9 mg/dL Normal 8.4-10.2 [facility] Comment on above: Performed By: #### A CBC #### Testing performed at [place] [id number] Chloride [Moles/Vol] 103 mmol/L Normal 98-107 [facility] Comment on above: Result Comment: Plea se note: Triglyceride levels of 600mg/dL or higher may positively bias chloride results by approximately 2.1 mmol Performed By: #### A CBC #### Testing performed at [address] [address] CO2 [Moles/Vol] 30 mmol/L Normal 22-30 [facility] Comment on above: Performed By: #### A CBC #### Testing performed at [address] [address] Creatinine [Mass/Vol] 0.90 mg/dL Normal 0.7-1.2 [facility] Comment on above: Performed By: #### A CBC #### Testing performed at [address] [address] EST. GFR, 77 ml/min/1.73sq.m [facility] Comment on above: Performed By: #### A CBC #### Testing performed at [address] [place] [address] EST. GFR,Non 64 ml/min/1.73sq.m [facility] Comment on above: Performed By: #### A CBC #### Testing performed at [address] [address] GFR Information Average GFR for 70+ years old = 75. Normal [facility] Comment on above: Result Comment: Office Inspector aviva Kidney disease, GFR = <60. Kidney failure, GFR = <15. The GFR estimate is not adjusted for extreme body surface area or acute process, nor has it been validated for women or ethnic groups other than and . Performed By: #### A CBC #### Testing performed at [address] [address] Glucose [Mass/Vol] 103 mg/dL High 70-100 [facility] Comment on above: Result Comment: NORMAL <100 mg/dL PREDIABETES 101-126 mg/dL DIABETES 126 mg/dL or higher Performed By: #### A CBC #### Testing performed at [address] [address] Potassium [Moles/Vol] 4.2 mmol/L Normal 3.5-5.1 [facility] Comment on above: Performed By: #### A CBC #### Testing performed at [address] [address] Sodium [Moles/Vol] 134 mmol/L Low 137-145 [facility] Comment on above: Performed By: #### A CBC #### Testing performed at [address] [address] Urea nitrogen [Mass/Vol] 18 mg/dL Normal 7-20 [facility] Comment on above: Performed By: #### A CBC #### Testing performed at [address] [place] [address] C REACTIVE PROTEINon 024 CRP [Mass/Vol] 26.3 mg/L High 0-10 [facility] Comment on above: Performed By: #### A CBC #### Testing performed at [address] [address] CBCon 02-02-2024 ABSOLUTE BAS 0.1 10*3/uL Normal 0.0-0.2 [facility] Comment on above: Performed By: #### A CBC #### Testing performed at [address] [address] ABSOLUTE EOS 0.2 10*3/uL Normal 0.0-0.7 [facility] Comment on above: Performed By: #### A CBC #### Testing performed at [address] [address] ABSOLUTE NEUTROPHIL COUNT 3.4 10*3/uL Normal 1.4-6.5 [facility] Comment on above: Performed By: #### A CBC #### Testing performed at [address] [address] Basophils/100 WBC (Bld) 0.9 % Normal 0.0-2.0 [facility] Comment on above: Performed By: #### A CBC #### Testing performed at [address] [place] [address] DTYPE AUTO DIFF Normal [facility] Comment on above: Performed By: #### A CBC #### Testing performed at [address] [address] Eosinophils/100 WBC (Bld) 3.7 % Normal 0.0-11.0 [facility] Comment on above: Performed By: #### A CBC #### Testing performed at [address] [address] Lymphocytes (Bld) [#/Vol] 1.6 10*3/uL Normal 1.2-3.4 [facility] Comment on above: Performed By: #### A CBC #### Testing performed at [place] [address] [place] [address] Lymphocytes/100 WBC (Bld) 26.5 % Normal 20.0-55.0 [facility] Comment on above: Performed By: #### A CBC #### Testing performed at [address] [address] Monocytes (Bld) [#/Vol] 0.8 10*3/uL High 0.0-0.7 [facility] Comment on above: Performed By: #### A CBC #### Testing performed at [address] [address] Monocytes/100 WBC (Bld) 12.8 % High 0.0-10.0 [facility] Comment on above: Performed By: #### A CBC #### Testing performed at [address] [address] Neutrophils/100 WBC (Bld) 56.1 % Normal 37.0-75.0 [facility] Comment on above: Performed By: #### A CBC #### Testing performed at [address] [address] Erythrocyte distribution width (RBC) [Ratio] 15.2 % High 11.5-14.5 [facility] Comment on above: Performed By: #### A CBC #### Testing performed at [address] [place] [address] Hematocrit (Bld) [Volume fraction] 31.1 % Low 36.0-48.0 [facility] Comment on above: Performed By: #### A CBC #### Testing performed at [address] [place] [address] Hemoglobin (Bld) [Mass/Vol] 10.5 g/dL Low 12.0-16.0 [facility] Comment on above: Performed By: #### A CBC #### Testing performed at [address] [address] MCH (RBC) [Entitic mass] 32.4 pg Normal 26.0-35.0 [facility] Comment on above: Performed By: #### A CBC #### Testing performed at [address] [address] MCHC (RBC) [Mass/Vol] 33.8 g/dL Normal 27.0-37.0 [facility] Comment on above: Performed By: #### A CBC #### Testing performed at [address] [address] MCV (RBC) [Entitic vol] 95.9 fL Normal 80.0-100.0 [facility] Comment on above: Performed By: #### A CBC #### Testing performed at [address] [address] Platelet mean volume (Bld) [Entitic vol] 6.5 fL Low 7.4-11.0 [facility] Comment on above: Performed By: #### A CBC #### Testing performed at [address] [address] Platelets (Bld) [#/Vol] 429 10*3/uL High 130-400 [facility] Comment on above: Performed By: #### A CBC #### Testing performed at [address] [address] RBC (Bld) [#/Vol] 3.24 10*6/uL Low 4.0-5.4 [facility] Comment on above: Performed By: #### A CBC #### Testing performed at [address] [address] WBC (Bld) [#/Vol] 6.0 10*3/uL Normal 3.6-11.0 [facility] Comment on above: Performed By: #### A CBC #### Testing performed at [id number] [place] [address] Laboratory - Chemistry and C hemistry - challengeon 02-02-2024 Anion gap [Moles/Vol] 1 mmol/L Low [facility] Calcium [Mass/Vol] 8.9 mg/dL [facility] Chloride [Moles/Vol] 103 mmol/L [facility] CO2 [Moles/Vol] 30 mmol/L [facility] Creatinine [Mass/Vol] 0.90 mg/dL [facility] CRP [Mass/Vol] 26.3 mg/L High 0 - 10 MG/L [facility] GFR/1.73 sq M.predicted among blacks MDRD (S/P/Bld) [Vol rate/Area] 77 mL/min/{1.73_m2} ml/min/1.73sq .m [facility] GFR/1.73 sq M.predicted among non-blacks MDRD (S/P/Bld) [Vol rate/Area] 64 mL/min/{1.73_m2} ml/min/1.73sq .m [facility] Glucose post fast [Mass/Vol] 103 mg/dL High [facility] Potassium [Moles/Vol] 4.2 mmol/L [facility] Sodium [Moles/Vol] 134 mmol/L Low [facility] Urea nitrogen [Mass/Vol] 18 mg/dL [facility] Laboratory - Hematology and Cell countson 02-02-2024 Basophils/100 WBC (Bld) 0.9 % 0.0 - 2.0 % [facility] Differential cell count method Nom (Bld) AUTO DIFF % [facility] Eosinophils (Bld) [#/Vol] 0.2 10*3/uL 0.0 - 0.7 10*3/uL [facility] Eosinophils/100 WBC (Bld) 3.7 % 0.0 - 11.0 % [facility] Erythrocyte distribution width (RBC) [Ratio] 15.2 % High 11.5 - 14.5 % [facility] Hematocrit (Bld) [Volume fraction] 31.1 % Low 36.0 - 48.0 % [facility] Hemoglobin (Bld) [Mass/Vol] 10.5 g/dL Low [facility] Lymphocytes (Bld) [#/Vol] 1.6 10*3/uL 1.2 - 3.4 10*3/uL [facility] Lymphocytes/100 WBC (Bld) 26.5 % 20.0 - 55.0 % [facility] MCH (RBC) [Entitic mass] 32.4 pg 26.0 - 35.0 PG [facility] MCHC (RBC) [Mass/Vol] 33.8 g/dL [facility] MCV (RBC) [Entitic vol] 95.9 fL [facility] Monocytes (Bld) [#/Vol] 0.8 10*3/uL High 0.0 - 0.7 10*3/uL [facility] Monocytes/100 WBC (Bld) 12.8 % High 0.0 - 10.0 % [facility] Neutrophils (Bld) [#/Vol] 3.4 10*3/uL 1.4 - 6.5 10*3/uL [facility] Neutrophils/100 WBC (Bld) 56.1 % 37.0 - 75.0 % [facility] Platelet mean volume (Bld) [Entitic vol] 6.5 fL Low [facility] Platelets (Bld) [#/Vol] 429 10*3/uL High 130 - 400 10*3/uL [facility] RBC (Bld) [#/Vol] 3.24 10*6/uL Low 4.0 - 5.4 10*6/uL [facility] WBC (Bld) [#/Vol] 6.0 10*3/uL 3.6 - 11.0 10*3/uL [facility] No Panel Informationon 02-01 GFR COMMENT Average GFR for 70+ years old = 75. [facility] Interpretation and review of laboratory results Abnormal [facility] ABSOLUTE BASOPHIL COUNT 0.1 10*3/uL 0.0 - 0.2 10*3/uL [facility] Interpretation and review of laboratory results Abnormal [facility] BMP FASTINGon 02-01-2024 Anion gap [Moles/Vol] 2 mmol/L Low 03-03 [facility] Calcium [Mass/Vol] 8.9 mg/dL Normal 8.4-10.2 [facility] Chloride [Moles/Vol] 103 mmol/L Normal 98-107 [facility] Comment on above: Result Comment: Shonda matthews note: Triglyceride levels of 600mg/dL or higher may positively bias chloride results by approximately 2.1 mmol CO2 [Moles/Vol] 28 mmol/L Normal 22-30 [facility] Creatinine [Mass/Vol] 0.90 mg/dL Normal 0.7-1.2 [facility] EST. GFR, 77 ml/min/1.73sq.m Normal [facility] EST. GFR,Non 64 ml/min/1.73sq.m Normal [facility] GFR Information Average GFR for 70+ years old = 75. Normal [facility] Comment on above: Result Comment: Office Inspector aviva Kidney disease, GFR = <60. Kidney failure, GFR = <15. The GFR estimate is not adjusted for extreme body surface area or acute process, nor has it been validated for women or ethnic groups other than and . Glucose [Mass/Vol] 98 mg/dL Normal 70-100 [facility] Comment on above: Result Comment: NORMAL <100 mg/dL PREDIABETES 101-126 mg/dL DIABETES 126 mg/dL or higher Potassium [Moles/Vol] 4.4 mmol/L Normal 3.5-5.1 [facility] Sodium [Moles/Vol] 133 mmol/L Low 137-145 [facility] Urea nitrogen [Mass/Vol] 14 mg/dL Normal 7-20 [facility] C REACTIVE PROTEINon 024 CRP [Mass/Vol] 26.1 mg/L High 0-10 [facility] 02-01-2024 ABSOLUTE BAS 0.1 10*3/uL Normal 0.0-0.2 [facility] ABSOLUTE EOS 0.1 10*3/uL Normal 0.0-0.7 [facility] ABSOLUTE NEUTROPHIL COUNT 3.0 10*3/uL Normal 1.4-6.5 [facility] Basophils/100 WBC (Bld) 1.1 % Normal 0.0-2.0 [facility] DTYPE AUTO DIFF Normal [facility] Eosinophils/100 WBC (Bld) 2.6 % Normal 0.0-11.0 [facility] Lymphocytes (Bld) [#/Vol] 1.7 10*3/uL Normal 1.2-3.4 [facility] Lymphocytes/100 WBC (Bld) 28.9 % Normal 20.0-55.0 [facility] Monocytes (Bld) [#/Vol] 0.9 10*3/uL High 0.0-0.7 [facility] Monocytes/100 WBC (Bld) 15.1 % High 0.0-10.0 [facility] Neutrophils/100 WBC (Bld) 52.3 % Normal 37.0-75.0 [facility] Erythrocyte distribution width (RBC) [Ratio] 14.8 % High 11.5-14.5 [facility] Hematocrit (Bld) [Volume fraction] 31.4 % Low 36.0-48.0 [facility] Hemoglobin (Bld) [Mass/Vol] 10.6 g/dL Low 12.0-16.0 [facility] MCH (RBC) [Entitic mass] 32.4 pg Normal 26.0-35.0 [facility] MCHC (RBC) [Mass/Vol] 33.9 g/dL Normal 27.0-37.0 [facility] MCV (RBC) [Entitic vol] 95.5 fL Normal 80.0-100.0 [facility] Platelet mean volume (Bld) [Entitic vol] 6.4 fL Low 7.4-11.0 [facility] Platelets (Bld) [#/Vol] 479 10*3/uL High 130-400 [facility] RBC (Bld) [#/Vol] 3.29 10*6/uL Low 4.0-5.4 [facility] WBC (Bld) [#/Vol] 5.8 10*3/uL Normal 3.6-11.0 [facility] Laboratory - Chemistry and C hemistry - challengeon 02-01-2024 Anion gap [Moles/Vol] 2 mmol/L Low [facility] Calcium [Mass/Vol] 8.9 mg/dL [facility] Chloride [Moles/Vol] 103 mmol/L [facility] CO2 [Moles/Vol] 28 mmol/L [facility] Creatinine [Mass/Vol] 0.90 mg/dL [facility] CRP [Mass/Vol] 26.1 mg/L High 0 - 10 MG/L [facility] GFR/1.73 sq M.predicted among blacks MDRD (S/P/Bld) [Vol rate/Area] 77 mL/min/{1.73_m2} ml/min/1.73sq .m [facility] GFR/1.73 sq M.predicted among non-blacks MDRD (S/P/Bld) [Vol rate/Area] 64 mL/min/{1.73_m2} ml/min/1.73sq .m [facility] Glucose post fast [Mass/Vol] 98 mg/dL [facility] Potassium [Moles/Vol] 4.4 mmol/L [facility] Sodium [Moles/Vol] 133 mmol/L Low [facility] Urea nitrogen [Mass/Vol] 14 mg/dL [facility] Laboratory - Hematology and Cell countson 02-01-2024 Basophils/100 WBC (Bld) 1.1 % 0.0 - 2.0 % [facility] Differential cell count method Nom (Bld) AUTO DIFF % [facility] Eosinophils (Bld) [#/Vol] 0.1 10*3/uL 0.0 - 0.7 10*3/uL [facility] Eosinophils/100 WBC (Bld) 2.6 % 0.0 - 11.0 % [facility] Erythrocyte distribution width (RBC) [Ratio] 14.8 % High 11.5 - 14.5 % [facility] Hematocrit (Bld) [Volume fraction] 31.4 % Low 36.0 - 48.0 % [facility] Hemoglobin (Bld) [Mass/Vol] 10.6 g/dL Low [facility] Lymphocytes (Bld) [#/Vol] 1.7 10*3/uL 1.2 - 3.4 10*3/uL [facility] Lymphocytes/100 WBC (Bld) 28.9 % 20.0 - 55.0 % [facility] MCH (RBC) [Entitic mass] 32.4 pg 26.0 - 35.0 PG [facility] MCHC (RBC) [Mass/Vol] 33.9 g/dL [facility] MCV (RBC) [Entitic vol] 95.5 fL [facility] Monocytes (Bld) [#/Vol] 0.9 10*3/uL High 0.0 - 0.7 10*3/uL [facility] Monocytes/100 WBC (Bld) 15.1 % High 0.0 - 10.0 % [facility] Neutrophils (Bld) [#/Vol] 3.0 10*3/uL 1.4 - 6.5 10*3/uL [facility] Neutrophils/100 WBC (Bld) 52.3 % 37.0 - 75.0 % [facility] Platelet mean volume (Bld) [Entitic vol] 6.4 fL Low [facility] Platelets (Bld) [#/Vol] 479 10*3/uL High 130 - 400 10*3/uL [facility] RBC (Bld) [#/Vol] 3.29 10*6/uL Low 4.0 - 5.4 10*6/uL [facility] WBC (Bld) [#/Vol] 5.8 10*3/uL 3.6 - 11.0 10*3/uL [facility] No Panel Informationon 01-31 GFR COMMENT Average GFR for 70+ years old = 75. [facility] Interpretation and review of laboratory results Abnormal [facility] ABSOLUTE BASOPHIL COUNT 0.1 10*3/uL 0.0 - 0.2 10*3/uL [facility] Interpretation and review of laboratory results Abnormal [facility] BMP FASTINGon 01-31-2024 Anion gap [Moles/Vol] Negative Normal 8-16 [facility] Calcium [Mass/Vol] 8.7 mg/dL Normal 8.4-10.2 [facility] Chloride [Moles/Vol] 102 mmol/L Normal 98-107 [facility] Comment on above: Result Comment: Shonda matthews note: Triglyceride levels of 600mg/dL or higher may positively bias chloride results by approximately 2.1 mmol CO2 [Moles/Vol] 33 mmol/L High 22-30 [facility] Creatinine [Mass/Vol] 1.10 mg/dL Normal 0.7-1.2 [facility] EST. GFR, 61 ml/min/1.73sq.m Normal [facility] EST. GFR,Non 51 ml/min/1.73sq.m Normal [facility] GFR Information Average GFR for 70+ years old = 75. Normal [facility] Comment on above: Result Comment: Office Inspector aviva Kidney disease, GFR = <60. Kidney failure, GFR = <15. The GFR estimate is not adjusted for extreme body surface area or acute process, nor has it been validated for women or ethnic groups other than and . Glucose [Mass/Vol] 94 mg/dL Normal 70-100 [facility] Comment on above: Result Comment: NORMAL <100 mg/dL PREDIABETES 101-126 mg/dL DIABETES 126 mg/dL or higher Potassium [Moles/Vol] 4.5 mmol/L Normal 3.5-5.1 [facility] Sodium [Moles/Vol] 134 mmol/L Low 137-145 [facility] Urea nitrogen [Mass/Vol] 12 mg/dL Normal 7-20 [facility] C REACTIVE PROTEINon 024 CRP [Mass/Vol] 27.5 mg/L High 0-10 [facility] 01-31-2024 ABSOLUTE BAS 0.1 10*3/uL Normal 0.0-0.2 [facility] ABSOLUTE EOS 0.2 10*3/uL Normal 0.0-0.7 [facility] ABSOLUTE NEUTROPHIL COUNT 2.5 10*3/uL Normal 1.4-6.5 [facility] Basophils/100 WBC (Bld) 1.4 % Normal 0.0-2.0 [facility] DTYPE AUTO DIFF Normal [facility] Eosinophils/100 WBC (Bld) 3.6 % Normal 0.0-11.0 [facility] Lymphocytes (Bld) [#/Vol] 1.5 10*3/uL Normal 1.2-3.4 [facility] Lymphocytes/100 WBC (Bld) 28.8 % Normal 20.0-55.0 [facility] Monocytes (Bld) [#/Vol] 0.8 10*3/uL High 0.0-0.7 [facility] Monocytes/100 WBC (Bld) 16.5 % High 0.0-10.0 [facility] Neutrophils/100 WBC (Bld) 49.7 % Normal 37.0-75.0 [facility] Erythrocyte distribution width (RBC) [Ratio] 14.9 % High 11.5-14.5 [facility] Hematocrit (Bld) [Volume fraction] 29.3 % Low 36.0-48.0 [facility] Hemoglobin (Bld) [Mass/Vol] 10.0 g/dL Low 12.0-16.0 [facility] MCH (RBC) [Entitic mass] 32.5 pg Normal 26.0-35.0 [facility] MCHC (RBC) [Mass/Vol] 34.1 g/dL Normal 27.0-37.0 [facility] MCV (RBC) [Entitic vol] 95.2 fL Normal 80.0-100.0 [facility] Platelet mean volume (Bld) [Entitic vol] 6.3 fL Low 7.4-11.0 [facility] Platelets (Bld) [#/Vol] 439 10*3/uL High 130-400 [facility] RBC (Bld) [#/Vol] 3.08 10*6/uL Low 4.0-5.4 [facility] WBC (Bld) [#/Vol] 5.1 10*3/uL Normal 3.6-11.0 [facility] LIPASE,SERUMon 01-31-2024 LIPASE,SERUM 43 U/L Normal 23-300 [facility] LIVER PANELon 01-31-2024 Albumin [Mass/Vol] 3.0 g/dL Low 3.5-5.0 [facility] ALP [Catalytic activity/Vol] 107 U/L Normal 38-126 [facility] ALT [Catalytic activity/Vol] 13 U/L Normal <35 [facility] AST [Catalytic activity/Vol] 26 U/L Normal 14-36 [facility] Bilirubin [Mass/Vol] 0.2 mg/dL Normal 0.2-1.3 [facility] Bilirubin.indirect [Mass/Vol] 0.2 mg/dL Normal 0-0.4 [facility] Protein [Mass/Vol] 6.1 g/dL Low 6.3-8.2 [facility] Laboratory - Chemistry and C hemistry - challengeon 01-31-2024 Prealbumin [Mass/Vol] 11.9 mg/dL Low [facility] Albumin [Mass/Vol] 3.0 g/dL Low [facility] ALP [Catalytic activity/Vol] 107 U/L [facility] ALT [Catalytic activity/Vol] 13 U/L NINF [facility] Anion gap [Moles/Vol] Negative [facility] AST [Catalytic activity/Vol] 26 U/L [facility] Bilirubin [Mass/Vol] 0.2 mg/dL [facility] Bilirubin.direct [Mass/Vol] 0.2 mg/dL [facility] Calcium [Mass/Vol] 8.7 mg/dL [facility] Chloride [Moles/Vol] 102 mmol/L [facility] CO2 [Moles/Vol] 33 mmol/L High [facility] Creatinine [Mass/Vol] 1.10 mg/dL [facility] CRP [Mass/Vol] 27.5 mg/L High 0 - 10 MG/L [facility] GFR/1.73 sq M.predicted among blacks MDRD (S/P/Bld) [Vol rate/Area] 61 mL/min/{1.73_m2} ml/min/1.73sq .m [facility] GFR/1.73 sq M.predicted among non-blacks MDRD (S/P/Bld) [Vol rate/Area] 51 mL/min/{1.73_m2} ml/min/1.73sq .m [facility] Glucose post fast [Mass/Vol] 94 mg/dL [facility] Lipase [Catalytic activity/Vol] 43 U/L 23 - 300 U/L [facility] Potassium [Moles/Vol] 4.5 mmol/L [facility] Protein [Mass/Vol] 6.1 g/dL Low [facility] Sodium [Moles/Vol] 134 mmol/L Low [facility] Urea nitrogen [Mass/Vol] 12 mg/dL [facility] Laboratory - Hematology and Cell countson 01-31-2024 Basophils/100 WBC (Bld) 1.4 % 0.0 - 2.0 % [facility] Differential cell count method Nom (Bld) AUTO DIFF % [facility] Eosinophils (Bld) [#/Vol] 0.2 10*3/uL 0.0 - 0.7 10*3/uL [facility] Eosinophils/100 WBC (Bld) 3.6 % 0.0 - 11.0 % [facility] Erythrocyte distribution width (RBC) [Ratio] 14.9 % High 11.5 - 14.5 % [facility] Hematocrit (Bld) [Volume fraction] 29.3 % Low 36.0 - 48.0 % [facility] Hemoglobin (Bld) [Mass/Vol] 10.0 g/dL Low [facility] Lymphocytes (Bld) [#/Vol] 1.5 10*3/uL 1.2 - 3.4 10*3/uL [facility] Lymphocytes/100 WBC (Bld) 28.8 % 20.0 - 55.0 % [facility] MCH (RBC) [Entitic mass] 32.5 pg 26.0 - 35.0 PG [facility] MCHC (RBC) [Mass/Vol] 34.1 g/dL [facility] MCV (RBC) [Entitic vol] 95.2 fL [facility] Monocytes (Bld) [#/Vol] 0.8 10*3/uL High 0.0 - 0.7 10*3/uL [facility] Monocytes/100 WBC (Bld) 16.5 % High 0.0 - 10.0 % [facility] Neutrophils (Bld) [#/Vol] 2.5 10*3/uL 1.4 - 6.5 10*3/uL [facility] Neutrophils/100 WBC (Bld) 49.7 % 37.0 - 75.0 % [facility] Platelet mean volume (Bld) [Entitic vol] 6.3 fL Low [facility] Platelets (Bld) [#/Vol] 439 10*3/uL High 130 - 400 10*3/uL [facility] RBC (Bld) [#/Vol] 3.08 10*6/uL Low 4.0 - 5.4 10*6/uL [facility] WBC (Bld) [#/Vol] 5.1 10*3/uL 3.6 - 11.0 10*3/uL [facility] No Panel Informationon 01-30 Interpretation and review of laboratory results Abnormal [facility] GFR COMMENT Average GFR for 70+ years old = 75. [facility] Interpretation and review of laboratory results Abnormal [facility] ABSOLUTE BASOPHIL COUNT 0.1 10*3/uL 0.0 - 0.2 10*3/uL [facility] Interpretation and review of laboratory results Abnormal [facility] PREALBUMINon 01-31-2024 Prealbumin [Mass/Vol] 11.9 mg/dL Low 17.6-36.0 [facility] BMP FASTINGon 01-30-2024 Anion gap [Moles/Vol] 3 mmol/L Low 8-16 [facility] Calcium [Mass/Vol] 8.6 mg/dL Normal 8.4-10.2 [facility] Chloride [Moles/Vol] 101 mmol/L Normal 98-107 [facility] Comment on above: Result Comment: Shonda matthews note: Triglyceride levels of 600mg/dL or higher may positively bias chloride results by approximately 2.1 mmol CO2 [Moles/Vol] 31 mmol/L High 22-30 [facility] Creatinine [Mass/Vol] 1.00 mg/dL Normal 0.7-1.2 [facility] EST. GFR, 68 ml/min/1.73sq.m [facility] EST. GFR,Non 57 ml/min/1.73sq.m [facility] GFR Information Average GFR for 70+ years old = 75. Normal [facility] Comment on above: Result Comment: Office Inspector aviva Kidney disease, GFR = <60. Kidney failure, GFR = <15. The GFR estimate is not adjusted for extreme body surface area or acute process, nor has it been validated for women or ethnic groups other than and . Glucose [Mass/Vol] 93 mg/dL Normal 70-100 [facility] Comment on above: Result Comment: NORMAL <100 mg/dL PREDIABETES 101-126 mg/dL DIABETES 126 mg/dL or higher Potassium [Moles/Vol] 4.4 mmol/L Normal 3.5-5.1 [facility] Sodium [Moles/Vol] 135 mmol/L Low 137-145 [facility] Urea nitrogen [Mass/Vol] 10 mg/dL Normal 7-20 [facility] C REACTIVE PROTEINon 024 CRP [Mass/Vol] 25.8 mg/L High 0-10 [facility] 01-30-2024 ABSOLUTE BAS 0.1 10*3/uL Normal 0.0-0.2 [facility] ABSOLUTE EOS 0.2 10*3/uL Normal 0.0-0.7 [facility] ABSOLUTE NEUTROPHIL COUNT 2.9 10*3/uL Normal 1.4-6.5 [facility] Basophils/100 WBC (Bld) 1.2 % Normal 0.0-2.0 [facility] DTYPE AUTO DIFF Normal [facility] Eosinophils/100 WBC (Bld) 3.0 % Normal 0.0-11.0 [facility] Lymphocytes (Bld) [#/Vol] 1.4 10*3/uL Normal 1.2-3.4 [facility] Lymphocytes/100 WBC (Bld) 26.1 % Normal 20.0-55.0 [facility] Monocytes (Bld) [#/Vol] 0.8 10*3/uL High 0.0-0.7 [facility] Monocytes/100 WBC (Bld) 15.2 % High 0.0-10.0 [facility] Neutrophils/100 WBC (Bld) 54.5 % Normal 37.0-75.0 [facility] Erythrocyte distribution width (RBC) [Ratio] 15.0 % High 11.5-14.5 [facility] Hematocrit (Bld) [Volume fraction] 29.9 % Low 36.0-48.0 [facility] Hemoglobin (Bld) [Mass/Vol] 10.3 g/dL Low 12.0-16.0 [facility] MCH (RBC) [Entitic mass] 32.9 pg Normal 26.0-35.0 [facility] MCHC (RBC) [Mass/Vol] 34.4 g/dL Normal 27.0-37.0 [facility] MCV (RBC) [Entitic vol] 95.6 fL Normal 80.0-100.0 [facility] Platelet mean volume (Bld) [Entitic vol] 6.3 fL Low 7.4-11.0 [facility] Platelets (Bld) [#/Vol] 466 10*3/uL High 130-400 [facility] RBC (Bld) [#/Vol] 3.12 10*6/uL Low 4.0-5.4 [facility] WBC (Bld) [#/Vol] 5.3 10*3/uL Normal 3.6-11.0 [facility] Laboratory - Chemistry and C hemistry - challengeon 01-30-2024 Anion gap [Moles/Vol] 3 mmol/L Low [facility] Calcium [Mass/Vol] 8.6 mg/dL [facility] Chloride [Moles/Vol] 101 mmol/L [facility] CO2 [Moles/Vol] 31 mmol/L High [facility] Creatinine [Mass/Vol] 1.00 mg/dL [facility] CRP [Mass/Vol] 25.8 mg/L High 0 - 10 MG/L [facility] GFR/1.73 sq M.predicted among blacks MDRD (S/P/Bld) [Vol rate/Area] 68 mL/min/{1.73_m2} ml/min/1.73sq .m [facility] GFR/1.73 sq M.predicted among non-blacks MDRD (S/P/Bld) [Vol rate/Area] 57 mL/min/{1.73_m2} ml/min/1.73sq .m [facility] Glucose post fast [Mass/Vol] 93 mg/dL [facility] Potassium [Moles/Vol] 4.4 mmol/L [facility] Sodium [Moles/Vol] 135 mmol/L Low [facility] Urea nitrogen [Mass/Vol] 10 mg/dL [facility] Laboratory - Hematology and Cell countson 01-30-2024 Basophils/100 WBC (Bld) 1.2 % 0.0 - 2.0 % [facility] Differential cell count method Nom (Bld) AUTO DIFF % [facility] Eosinophils (Bld) [#/Vol] 0.2 10*3/uL 0.0 - 0.7 10*3/uL [facility] Eosinophils/100 WBC (Bld) 3.0 % 0.0 - 11.0 % [facility] Erythrocyte distribution width (RBC) [Ratio] 15.0 % High 11.5 - 14.5 % [facility] Hematocrit (Bld) [Volume fraction] 29.9 % Low 36.0 - 48.0 % [facility] Hemoglobin (Bld) [Mass/Vol] 10.3 g/dL Low [facility] Lymphocytes (Bld) [#/Vol] 1.4 10*3/uL 1.2 - 3.4 10*3/uL [facility] Lymphocytes/100 WBC (Bld) 26.1 % 20.0 - 55.0 % [facility] MCH (RBC) [Entitic mass] 32.9 pg 26.0 - 35.0 PG [facility] MCHC (RBC) [Mass/Vol] 34.4 g/dL [facility] MCV (RBC) [Entitic vol] 95.6 fL [facility] Monocytes (Bld) [#/Vol] 0.8 10*3/uL High 0.0 - 0.7 10*3/uL [facility] Monocytes/100 WBC (Bld) 15.2 % High 0.0 - 10.0 % [facility] Neutrophils (Bld) [#/Vol] 2.9 10*3/uL 1.4 - 6.5 10*3/uL [facility] Neutrophils/100 WBC (Bld) 54.5 % 37.0 - 75.0 % [facility] Platelet mean volume (Bld) [Entitic vol] 6.3 fL Low [facility] Platelets (Bld) [#/Vol] 466 10*3/uL High 130 - 400 10*3/uL [facility] RBC (Bld) [#/Vol] 3.12 10*6/uL Low 4.0 - 5.4 10*6/uL [facility] WBC (Bld) [#/Vol] 5.3 10*3/uL 3.6 - 11.0 10*3/uL [facility] No Panel Informationon 01-29 GFR COMMENT Average GFR for 70+ years old = 75. [facility] Interpretation and review of laboratory results Abnormal [facility] ABSOLUTE BASOPHIL COUNT 0.1 10*3/uL 0.0 - 0.2 10*3/uL [facility] Interpretation and review of laboratory results Abnormal [facility] BMP FASTINGon 01-29-2024 Anion gap [Moles/Vol] 3 mmol/L Low 8-16 [facility] Calcium [Mass/Vol] 8.3 mg/dL Low 8.4-10.2 [facility] Chloride [Moles/Vol] 101 mmol/L Normal 98-107 [facility] Comment on above: Result Comment: Shonda matthews note: Triglyceride levels of 600mg/dL or higher may positively bias chloride results by approximately 2.1 mmol CO2 [Moles/Vol] 30 mmol/L Normal 22-30 [facility] Creatinine [Mass/Vol] 0.80 mg/dL Normal 0.7-1.2 [facility] EST. GFR, 89 ml/min/1.73sq.m [facility] EST. GFR,Non 73 ml/min/1.73sq.m [facility] GFR Information Average GFR for 70+ years old = 75. Normal [facility] Comment on above: Result Comment: Office Inspector aviva Kidney disease, GFR = <60. Kidney failure, GFR = <15. The GFR estimate is not adjusted for extreme body surface area or acute process, nor has it been validated for women or ethnic groups other than and . Glucose [Mass/Vol] 94 mg/dL Normal 70-100 [facility] Comment on above: Result Comment: NORMAL <100 mg/dL PREDIABETES 101-126 mg/dL DIABETES 126 mg/dL or higher Potassium [Moles/Vol] 4.2 mmol/L Normal 3.5-5.1 [facility] Sodium [Moles/Vol] 134 mmol/L Low 137-145 [facility] Urea nitrogen [Mass/Vol] 9 mg/dL Normal 7-20 [facility] C REACTIVE PROTEINon 024 CRP [Mass/Vol] 28.9 mg/L High 0-10 [facility] 01-29-2024 ABSOLUTE BAS 0.1 10*3/uL Normal 0.0-0.2 [facility] ABSOLUTE EOS 0.2 10*3/uL Normal 0.0-0.7 [facility] ABSOLUTE NEUTROPHIL COUNT 2.6 10*3/uL Normal 1.4-6.5 [facility] Basophils/100 WBC (Bld) 1.1 % Normal 0.0-2.0 [facility] DTYPE AUTO DIFF Normal [facility] Eosinophils/100 WBC (Bld) 4.1 % Normal 0.0-11.0 [facility] Lymphocytes (Bld) [#/Vol] 1.3 10*3/uL Normal 1.2-3.4 [facility] Lymphocytes/100 WBC (Bld) 26.6 % Normal 20.0-55.0 [facility] Monocytes (Bld) [#/Vol] 0.7 10*3/uL Normal 0.0-0.7 [facility] Monocytes/100 WBC (Bld) 13.9 % High 0.0-10.0 [facility] Neutrophils/100 WBC (Bld) 54.3 % Normal 37.0-75.0 [facility] Erythrocyte distribution width (RBC) [Ratio] 14.7 % High 11.5-14.5 [facility] Hematocrit (Bld) [Volume fraction] 29.3 % Low 36.0-48.0 [facility] Hemoglobin (Bld) [Mass/Vol] 10.0 g/dL Low 12.0-16.0 [facility] MCH (RBC) [Entitic mass] 32.7 pg Normal 26.0-35.0 [facility] MCHC (RBC) [Mass/Vol] 34.3 g/dL Normal 27.0-37.0 [facility] MCV (RBC) [Entitic vol] 95.2 fL Normal 80.0-100.0 [facility] Platelet mean volume (Bld) [Entitic vol] 6.4 fL Low 7.4-11.0 [facility] Platelets (Bld) [#/Vol] 438 10*3/uL High 130-400 [facility] RBC (Bld) [#/Vol] 3.07 10*6/uL Low 4.0-5.4 [facility] WBC (Bld) [#/Vol] 4.7 10*3/uL Normal 3.6-11.0 [facility] Laboratory - Chemistry and C hemistry - challengeon 01-29-2024 Anion gap [Moles/Vol] 3 mmol/L Low [facility] Calcium [Mass/Vol] 8.3 mg/dL Low [facility] Chloride [Moles/Vol] 101 mmol/L [facility] CO2 [Moles/Vol] 30 mmol/L [facility] Creatinine [Mass/Vol] 0.80 mg/dL [facility] CRP [Mass/Vol] 28.9 mg/L High 0 - 10 MG/L [facility] GFR/1.73 sq M.predicted among blacks MDRD (S/P/Bld) [Vol rate/Area] 89 mL/min/{1.73_m2} ml/min/1.73sq .m [facility] GFR/1.73 sq M.predicted among non-blacks MDRD (S/P/Bld) [Vol rate/Area] 73 mL/min/{1.73_m2} ml/min/1.73sq .m [facility] Glucose post fast [Mass/Vol] 94 mg/dL [facility] Potassium [Moles/Vol] 4.2 mmol/L [facility] Sodium [Moles/Vol] 134 mmol/L Low [facility] Urea nitrogen [Mass/Vol] 9 mg/dL [facility] Laboratory - Hematology and Cell countson 01-29-2024 Basophils/100 WBC (Bld) 1.1 % 0.0 - 2.0 % [facility] Differential cell count method Nom (Bld) AUTO DIFF % [facility] Eosinophils (Bld) [#/Vol] 0.2 10*3/uL 0.0 - 0.7 10*3/uL [facility] Eosinophils/100 WBC (Bld) 4.1 % 0.0 - 11.0 % [facility] Erythrocyte distribution width (RBC) [Ratio] 14.7 % High 11.5 - 14.5 % [facility] Hematocrit (Bld) [Volume fraction] 29.3 % Low 36.0 - 48.0 % [facility] Hemoglobin (Bld) [Mass/Vol] 10.0 g/dL Low [facility] Lymphocytes (Bld) [#/Vol] 1.3 10*3/uL 1.2 - 3.4 10*3/uL [facility] Lymphocytes/100 WBC (Bld) 26.6 % 20.0 - 55.0 % [facility] MCH (RBC) [Entitic mass] 32.7 pg 26.0 - 35.0 PG [facility] MCHC (RBC) [Mass/Vol] 34.3 g/dL [facility] MCV (RBC) [Entitic vol] 95.2 fL [facility] Monocytes (Bld) [#/Vol] 0.7 10*3/uL 0.0 - 0.7 10*3/uL [facility] Monocytes/100 WBC (Bld) 13.9 % High 0.0 - 10.0 % [facility] Neutrophils (Bld) [#/Vol] 2.6 10*3/uL 1.4 - 6.5 10*3/uL [facility] Neutrophils/100 WBC (Bld) 54.3 % 37.0 - 75.0 % [facility] Platelet mean volume (Bld) [Entitic vol] 6.4 fL Low [facility] Platelets (Bld) [#/Vol] 438 10*3/uL High 130 - 400 10*3/uL [facility] RBC (Bld) [#/Vol] 3.07 10*6/uL Low 4.0 - 5.4 10*6/uL [facility] WBC (Bld) [#/Vol] 4.7 10*3/uL 3.6 - 11.0 10*3/uL [facility] No Panel Informationon 01-28 GFR COMMENT Average GFR for 70+ years old = 75. [facility] Interpretation and review of laboratory results Abnormal [facility] ABSOLUTE BASOPHIL COUNT 0.1 10*3/uL 0.0 - 0.2 10*3/uL [facility] Interpretation and review of laboratory results Abnormal [facility] BMP FASTINGon 01-28-2024 Anion gap [Moles/Vol] 3 mmol/L Low 8-16 [facility] Calcium [Mass/Vol] 8.8 mg/dL Normal 8.4-10.2 [facility] Chloride [Moles/Vol] 100 mmol/L Normal 98-107 [facility] Comment on above: Result Comment: Shonda matthews note: Triglyceride levels of 600mg/dL or higher may positively bias chloride results by approximately 2.1 mmol CO2 [Moles/Vol] 33 mmol/L High 22-30 [facility] Creatinine [Mass/Vol] 0.80 mg/dL Normal 0.7-1.2 [facility] EST. GFR, 89 ml/min/1.73sq.m Normal [facility] EST. GFR,Non 73 ml/min/1.73sq.m Normal [facility] GFR Information Average GFR for 70+ years old = 75. Normal [facility] Comment on above: Result Comment: Office Inspector aviva Kidney disease, GFR = <60. Kidney failure, GFR = <15. The GFR estimate is not adjusted for extreme body surface area or acute process, nor has it been validated for women or ethnic groups other than and . Glucose [Mass/Vol] 86 mg/dL Normal 70-100 [facility] Comment on above: Result Comment: NORMAL <100 mg/dL PREDIABETES 101-126 mg/dL DIABETES 126 mg/dL or higher Potassium [Moles/Vol] 4.4 mmol/L Normal 3.5-5.1 [facility] Sodium [Moles/Vol] 136 mmol/L Low 137-145 [facility] Urea nitrogen [Mass/Vol] 11 mg/dL Normal 7-20 [facility] C REACTIVE PROTEINon 024 CRP [Mass/Vol] 30.5 mg/L High 0-10 [facility] 01-28-2024 ABSOLUTE BAS 0.1 10*3/uL Normal 0.0-0.2 [facility] ABSOLUTE EOS 0.2 10*3/uL Normal 0.0-0.7 [facility] ABSOLUTE NEUTROPHIL COUNT 3.0 10*3/uL Normal 1.4-6.5 [facility] Basophils/100 WBC (Bld) 1.1 % Normal 0.0-2.0 [facility] DTYPE AUTO DIFF Normal [facility] Eosinophils/100 WBC (Bld) 3.2 % Normal 0.0-11.0 [facility] Lymphocytes (Bld) [#/Vol] 1.3 10*3/uL Normal 1.2-3.4 [facility] Lymphocytes/100 WBC (Bld) 25.7 % Normal 20.0-55.0 [facility] Monocytes (Bld) [#/Vol] 0.6 10*3/uL Normal 0.0-0.7 [facility] Monocytes/100 WBC (Bld) 12.0 % High 0.0-10.0 [facility] Neutrophils/100 WBC (Bld) 58.0 % Normal 37.0-75.0 [facility] Erythrocyte distribution width (RBC) [Ratio] 14.6 % High 11.5-14.5 [facility] Hematocrit (Bld) [Volume fraction] 31.3 % Low 36.0-48.0 [facility] Hemoglobin (Bld) [Mass/Vol] 10.6 g/dL Low 12.0-16.0 [facility] MCH (RBC) [Entitic mass] 32.3 pg Normal 26.0-35.0 [facility] MCHC (RBC) [Mass/Vol] 34.0 g/dL Normal 27.0-37.0 [facility] MCV (RBC) [Entitic vol] 95.0 fL Normal 80.0-100.0 [facility] Platelet mean volume (Bld) [Entitic vol] 6.5 fL Low 7.4-11.0 [facility] Platelets (Bld) [#/Vol] 470 10*3/uL High 130-400 [facility] RBC (Bld) [#/Vol] 3.30 10*6/uL Low 4.0-5.4 [facility] WBC (Bld) [#/Vol] 5.1 10*3/uL Normal 3.6-11.0 [facility] Laboratory - Chemistry and C hemistry - challengeon 01-28-2024 Anion gap [Moles/Vol] 3 mmol/L Low [facility] Calcium [Mass/Vol] 8.8 mg/dL [facility] Chloride [Moles/Vol] 100 mmol/L [facility] CO2 [Moles/Vol] 33 mmol/L High [facility] Creatinine [Mass/Vol] 0.80 mg/dL [facility] CRP [Mass/Vol] 30.5 mg/L High 0 - 10 MG/L [facility] GFR/1.73 sq M.predicted among blacks MDRD (S/P/Bld) [Vol rate/Area] 89 mL/min/{1.73_m2} ml/min/1.73sq .m [facility] GFR/1.73 sq M.predicted among non-blacks MDRD (S/P/Bld) [Vol rate/Area] 73 mL/min/{1.73_m2} ml/min/1.73sq .m [facility] Glucose post fast [Mass/Vol] 86 mg/dL [facility] Potassium [Moles/Vol] 4.4 mmol/L [facility] Sodium [Moles/Vol] 136 mmol/L Low [facility] Urea nitrogen [Mass/Vol] 11 mg/dL [facility] Laboratory - Hematology and Cell countson 01-28-2024 Basophils/100 WBC (Bld) 1.1 % 0.0 - 2.0 % [facility] Differential cell count method Nom (Bld) AUTO DIFF % [facility] Eosinophils (Bld) [#/Vol] 0.2 10*3/uL 0.0 - 0.7 10*3/uL [facility] Eosinophils/100 WBC (Bld) 3.2 % 0.0 - 11.0 % [facility] Erythrocyte distribution width (RBC) [Ratio] 14.6 % High 11.5 - 14.5 % [facility] Hematocrit (Bld) [Volume fraction] 31.3 % Low 36.0 - 48.0 % [facility] Hemoglobin (Bld) [Mass/Vol] 10.6 g/dL Low [facility] Lymphocytes (Bld) [#/Vol] 1.3 10*3/uL 1.2 - 3.4 10*3/uL [facility] Lymphocytes/100 WBC (Bld) 25.7 % 20.0 - 55.0 % [facility] MCH (RBC) [Entitic mass] 32.3 pg 26.0 - 35.0 PG [facility] MCHC (RBC) [Mass/Vol] 34.0 g/dL [facility] MCV (RBC) [Entitic vol] 95.0 fL [facility] Monocytes (Bld) [#/Vol] 0.6 10*3/uL 0.0 - 0.7 10*3/uL [facility] Monocytes/100 WBC (Bld) 12.0 % High 0.0 - 10.0 % [facility] Neutrophils (Bld) [#/Vol] 3.0 10*3/uL 1.4 - 6.5 10*3/uL [facility] Neutrophils/100 WBC (Bld) 58.0 % 37.0 - 75.0 % [facility] Platelet mean volume (Bld) [Entitic vol] 6.5 fL Low [facility] Platelets (Bld) [#/Vol] 470 10*3/uL High 130 - 400 10*3/uL [facility] RBC (Bld) [#/Vol] 3.30 10*6/uL Low 4.0 - 5.4 10*6/uL [facility] WBC (Bld) [#/Vol] 5.1 10*3/uL 3.6 - 11.0 10*3/uL [facility] No Panel Informationon 01-27 GFR COMMENT Average GFR for 70+ years old = 75. [facility] Interpretation and review of laboratory results Abnormal [facility] ABSOLUTE BASOPHIL COUNT 0.1 10*3/uL 0.0 - 0.2 10*3/uL [facility] Interpretation and review of laboratory results Abnormal [facility] BMP FASTINGon 01-27-2024 Anion gap [Moles/Vol] 3 mmol/L Low 8-16 [facility] Calcium [Mass/Vol] 8.6 mg/dL Normal 8.4-10.2 [facility] Chloride [Moles/Vol] 102 mmol/L Normal 98-107 [facility] Comment on above: Result Comment: Shonda matthews note: Triglyceride levels of 600mg/dL or higher may positively bias chloride results by approximately 2.1 mmol CO2 [Moles/Vol] 30 mmol/L Normal 22-30 [facility] Creatinine [Mass/Vol] 0.70 mg/dL Normal 0.7-1.2 [facility] EST. GFR, 103 ml/min/1.73sq.m [facility] EST. GFR,Non 85 ml/min/1.73sq.m [facility] GFR Information Average GFR for 70+ years old = 75. Normal [facility] Comment on above: Result Comment: Office Inspector aviva Kidney disease, GFR = <60. Kidney failure, GFR = <15. The GFR estimate is not adjusted for extreme body surface area or acute process, nor has it been validated for women or ethnic groups other than and . Glucose [Mass/Vol] 98 mg/dL Normal 70-100 [facility] Comment on above: Result Comment: NORMAL <100 mg/dL PREDIABETES 101-126 mg/dL DIABETES 126 mg/dL or higher Potassium [Moles/Vol] 4.0 mmol/L Normal 3.5-5.1 [facility] Sodium [Moles/Vol] 135 mmol/L Low 137-145 [facility] Urea nitrogen [Mass/Vol] 11 mg/dL Normal 7-20 [facility] C REACTIVE PROTEINon 024 CRP [Mass/Vol] 28.4 mg/L High 0-10 [facility] 01-27-2024 ABSOLUTE BAS 0.0 10*3/uL Normal 0.0-0.2 [facility] ABSOLUTE EOS 0.2 10*3/uL Normal 0.0-0.7 [facility] ABSOLUTE NEUTROPHIL COUNT 3.3 10*3/uL Normal 1.4-6.5 [facility] Basophils/100 WBC (Bld) 0.9 % Normal 0.0-2.0 [facility] DTYPE AUTO DIFF Normal [facility] Eosinophils/100 WBC (Bld) 3.3 % Normal 0.0-11.0 [facility] Lymphocytes (Bld) [#/Vol] 1.3 10*3/uL Normal 1.2-3.4 [facility] Lymphocytes/100 WBC (Bld) 23.9 % Normal 20.0-55.0 [facility] Monocytes (Bld) [#/Vol] 0.6 10*3/uL Normal 0.0-0.7 [facility] Monocytes/100 WBC (Bld) 11.0 % High 0.0-10.0 [facility] Neutrophils/100 WBC (Bld) 60.9 % Normal 37.0-75.0 [facility] Erythrocyte distribution width (RBC) [Ratio] 14.9 % High 11.5-14.5 [facility] Hematocrit (Bld) [Volume fraction] 30.7 % Low 36.0-48.0 [facility] Hemoglobin (Bld) [Mass/Vol] 10.3 g/dL Low 12.0-16.0 [facility] MCH (RBC) [Entitic mass] 32.2 pg Normal 26.0-35.0 [facility] MCHC (RBC) [Mass/Vol] 33.4 g/dL Normal 27.0-37.0 [facility] MCV (RBC) [Entitic vol] 96.3 fL Normal 80.0-100.0 [facility] Platelet mean volume (Bld) [Entitic vol] 6.6 fL Low 7.4-11.0 [facility] Platelets (Bld) [#/Vol] 438 10*3/uL High 130-400 [facility] RBC (Bld) [#/Vol] 3.19 10*6/uL Low 4.0-5.4 [facility] WBC (Bld) [#/Vol] 5.4 10*3/uL Normal 3.6-11.0 [facility] Laboratory - Chemistry and C hemistry - challengeon 01-27-2024 Anion gap [Moles/Vol] 3 mmol/L Low [facility] Calcium [Mass/Vol] 8.6 mg/dL [facility] Chloride [Moles/Vol] 102 mmol/L [facility] CO2 [Moles/Vol] 30 mmol/L [facility] Creatinine [Mass/Vol] 0.70 mg/dL [facility] CRP [Mass/Vol] 28.4 mg/L High 0 - 10 MG/L [facility] GFR/1.73 sq M.predicted among blacks MDRD (S/P/Bld) [Vol rate/Area] 103 mL/min/{1.73_m2} ml/min/1.73sq .m [facility] GFR/1.73 sq M.predicted among non-blacks MDRD (S/P/Bld) [Vol rate/Area] 85 mL/min/{1.73_m2} ml/min/1.73sq .m [facility] Glucose post fast [Mass/Vol] 98 mg/dL [facility] Potassium [Moles/Vol] 4.0 mmol/L [facility] Sodium [Moles/Vol] 135 mmol/L Low [facility] Urea nitrogen [Mass/Vol] 11 mg/dL [facility] Laboratory - Hematology and Cell countson 01-27-2024 Basophils/100 WBC (Bld) 0.9 % 0.0 - 2.0 % [facility] Differential cell count method Nom (Bld) AUTO DIFF % [facility] Eosinophils (Bld) [#/Vol] 0.2 10*3/uL 0.0 - 0.7 10*3/uL [facility] Eosinophils/100 WBC (Bld) 3.3 % 0.0 - 11.0 % [facility] Erythrocyte distribution width (RBC) [Ratio] 14.9 % High 11.5 - 14.5 % [facility] Hematocrit (Bld) [Volume fraction] 30.7 % Low 36.0 - 48.0 % [facility] Hemoglobin (Bld) [Mass/Vol] 10.3 g/dL Low [facility] Lymphocytes (Bld) [#/Vol] 1.3 10*3/uL 1.2 - 3.4 10*3/uL [facility] Lymphocytes/100 WBC (Bld) 23.9 % 20.0 - 55.0 % [facility] MCH (RBC) [Entitic mass] 32.2 pg 26.0 - 35.0 PG [facility] MCHC (RBC) [Mass/Vol] 33.4 g/dL [facility] MCV (RBC) [Entitic vol] 96.3 fL [facility] Monocytes (Bld) [#/Vol] 0.6 10*3/uL 0.0 - 0.7 10*3/uL [facility] Monocytes/100 WBC (Bld) 11.0 % High 0.0 - 10.0 % [facility] Neutrophils (Bld) [#/Vol] 3.3 10*3/uL 1.4 - 6.5 10*3/uL [facility] Neutrophils/100 WBC (Bld) 60.9 % 37.0 - 75.0 % [facility] Platelet mean volume (Bld) [Entitic vol] 6.6 fL Low [facility] Platelets (Bld) [#/Vol] 438 10*3/uL High 130 - 400 10*3/uL [facility] RBC (Bld) [#/Vol] 3.19 10*6/uL Low 4.0 - 5.4 10*6/uL [facility] WBC (Bld) [#/Vol] 5.4 10*3/uL 3.6 - 11.0 10*3/uL [facility] No Panel Informationon 01-26 GFR COMMENT Average GFR for 70+ years old = 75. [facility] Interpretation and review of laboratory results Abnormal [facility] ABSOLUTE BASOPHIL COUNT 0.0 10*3/uL 0.0 - 0.2 10*3/uL [facility] Interpretation and review of laboratory results Abnormal [facility] BMP FASTINGon 01-26-2024 Anion gap [Moles/Vol] 1 mmol/L Low 8-16 [facility] Calcium [Mass/Vol] 8.2 mg/dL Low 8.4-10.2 [facility] Chloride [Moles/Vol] 102 mmol/L Normal 98-107 [facility] Comment on above: Result Comment: Shonda matthews note: Triglyceride levels of 600mg/dL or higher may positively bias chloride results by approximately 2.1 mmol CO2 [Moles/Vol] 31 mmol/L High 22-30 [facility] Creatinine [Mass/Vol] 0.70 mg/dL Normal 0.7-1.2 [facility] EST. GFR, 103 ml/min/1.73sq.m Normal [facility] EST. GFR,Non 85 ml/min/1.73sq.m Normal [facility] GFR Information Average GFR for 70+ years old = 75. Normal [facility] Comment on above: Result Comment: Office Inspector aviva Kidney disease, GFR = <60. Kidney failure, GFR = <15. The GFR estimate is not adjusted for extreme body surface area or acute process, nor has it been validated for women or ethnic groups other than and . Glucose [Mass/Vol] 109 mg/dL High 70-100 [facility] Comment on above: Result Comment: NORMAL <100 mg/dL PREDIABETES 101-126 mg/dL DIABETES 126 mg/dL or higher Potassium [Moles/Vol] 3.9 mmol/L Normal 3.5-5.1 [facility] Sodium [Moles/Vol] 134 mmol/L Low 137-145 [facility] Urea nitrogen [Mass/Vol] 12 mg/dL Normal 7-20 [facility] C REACTIVE PROTEINon 024 CRP [Mass/Vol] 28.4 mg/L High 0-10 [facility] 01-26-2024 ABSOLUTE BAS 0.0 10*3/uL Normal 0.0-0.2 [facility] ABSOLUTE EOS 0.2 10*3/uL Normal 0.0-0.7 [facility] ABSOLUTE NEUTROPHIL COUNT 3.7 10*3/uL Normal 1.4-6.5 [facility] Basophils/100 WBC (Bld) 0.9 % Normal 0.0-2.0 [facility] DTYPE AUTO DIFF Normal [facility] Eosinophils/100 WBC (Bld) 2.8 % Normal 0.0-11.0 [facility] Lymphocytes (Bld) [#/Vol] 1.2 10*3/uL Normal 1.2-3.4 [facility] Lymphocytes/100 WBC (Bld) 21.0 % Normal 20.0-55.0 [facility] Monocytes (Bld) [#/Vol] 0.7 10*3/uL Normal 0.0-0.7 [facility] Monocytes/100 WBC (Bld) 11.6 % High 0.0-10.0 [facility] Neutrophils/100 WBC (Bld) 63.7 % Normal 37.0-75.0 [facility] Erythrocyte distribution width (RBC) [Ratio] 14.6 % High 11.5-14.5 [facility] Hematocrit (Bld) [Volume fraction] 29.0 % Low 36.0-48.0 [facility] Hemoglobin (Bld) [Mass/Vol] 9.8 g/dL Low 12.0-16.0 [facility] MCH (RBC) [Entitic mass] 32.0 pg Normal 26.0-35.0 [facility] MCHC (RBC) [Mass/Vol] 33.6 g/dL Normal 27.0-37.0 [facility] MCV (RBC) [Entitic vol] 95.3 fL Normal 80.0-100.0 [facility] Platelet mean volume (Bld) [Entitic vol] 6.7 fL Low 7.4-11.0 [facility] Platelets (Bld) [#/Vol] 440 10*3/uL High 130-400 [facility] RBC (Bld) [#/Vol] 3.05 10*6/uL Low 4.0-5.4 [facility] WBC (Bld) [#/Vol] 5.9 10*3/uL Normal 3.6-11.0 [facility] Laboratory - Chemistry and C hemistry - challengeon 01-26-2024 Anion gap [Moles/Vol] 1 mmol/L Low [facility] Calcium [Mass/Vol] 8.2 mg/dL Low [facility] Chloride [Moles/Vol] 102 mmol/L [facility] CO2 [Moles/Vol] 31 mmol/L High [facility] Creatinine [Mass/Vol] 0.70 mg/dL [facility] CRP [Mass/Vol] 28.4 mg/L High 0 - 10 MG/L [facility] GFR/1.73 sq M.predicted among blacks MDRD (S/P/Bld) [Vol rate/Area] 103 mL/min/{1.73_m2} ml/min/1.73sq .m [facility] GFR/1.73 sq M.predicted among non-blacks MDRD (S/P/Bld) [Vol rate/Area] 85 mL/min/{1.73_m2} ml/min/1.73sq .m [facility] Glucose post fast [Mass/Vol] 109 mg/dL High [facility] Potassium [Moles/Vol] 3.9 mmol/L [facility] Sodium [Moles/Vol] 134 mmol/L Low [facility] Urea nitrogen [Mass/Vol] 12 mg/dL [facility] Laboratory - Hematology and Cell countson 01-26-2024 Basophils/100 WBC (Bld) 0.9 % 0.0 - 2.0 % [facility] Differential cell count method Nom (Bld) AUTO DIFF % [facility] Eosinophils (Bld) [#/Vol] 0.2 10*3/uL 0.0 - 0.7 10*3/uL [facility] Eosinophils/100 WBC (Bld) 2.8 % 0.0 - 11.0 % [facility] Erythrocyte distribution width (RBC) [Ratio] 14.6 % High 11.5 - 14.5 % [facility] Hematocrit (Bld) [Volume fraction] 29.0 % Low 36.0 - 48.0 % [facility] Hemoglobin (Bld) [Mass/Vol] 9.8 g/dL Low [facility] Lymphocytes (Bld) [#/Vol] 1.2 10*3/uL 1.2 - 3.4 10*3/uL [facility] Lymphocytes/100 WBC (Bld) 21.0 % 20.0 - 55.0 % [facility] MCH (RBC) [Entitic mass] 32.0 pg 26.0 - 35.0 PG [facility] MCHC (RBC) [Mass/Vol] 33.6 g/dL [facility] MCV (RBC) [Entitic vol] 95.3 fL [facility] Monocytes (Bld) [#/Vol] 0.7 10*3/uL 0.0 - 0.7 10*3/uL [facility] Monocytes/100 WBC (Bld) 11.6 % High 0.0 - 10.0 % [facility] Neutrophils (Bld) [#/Vol] 3.7 10*3/uL 1.4 - 6.5 10*3/uL [facility] Neutrophils/100 WBC (Bld) 63.7 % 37.0 - 75.0 % [facility] Platelet mean volume (Bld) [Entitic vol] 6.7 fL Low [facility] Platelets (Bld) [#/Vol] 440 10*3/uL High 130 - 400 10*3/uL [facility] RBC (Bld) [#/Vol] 3.05 10*6/uL Low 4.0 - 5.4 10*6/uL [facility] WBC (Bld) [#/Vol] 5.9 10*3/uL 3.6 - 11.0 10*3/uL [facility] No Panel Informationon 01-25 GFR COMMENT Average GFR for 70+ years old = 75. [facility] Interpretation and review of laboratory results Abnormal [facility] ABSOLUTE BASOPHIL COUNT 0.0 10*3/uL 0.0 - 0.2 10*3/uL [facility] Interpretation and review of laboratory results Abnormal [facility] BMP FASTINGon 01-25-2024 Anion gap [Moles/Vol] 3 mmol/L Low 8-16 [facility] Calcium [Mass/Vol] 8.3 mg/dL Low 8.4-10.2 [facility] Chloride [Moles/Vol] 101 mmol/L Normal 98-107 [facility] Comment on above: Result Comment: Shonda matthews note: Triglyceride levels of 600mg/dL or higher may positively bias chloride results by approximately 2.1 mmol CO2 [Moles/Vol] 32 mmol/L High 22-30 [facility] Creatinine [Mass/Vol] 0.70 mg/dL Normal 0.7-1.2 [facility] EST. GFR, 103 ml/min/1.73sq.m Normal [facility] EST. GFR,Non 85 ml/min/1.73sq.m Normal [facility] GFR Information Average GFR for 70+ years old = 75. Normal [facility] Comment on above: Result Comment: Office Inspector aviva Kidney disease, GFR = <60. Kidney failure, GFR = <15. The GFR estimate is not adjusted for extreme body surface area or acute process, nor has it been validated for women or ethnic groups other than and . Glucose [Mass/Vol] 92 mg/dL Normal 70-100 [facility] Comment on above: Result Comment: NORMAL <100 mg/dL PREDIABETES 101-126 mg/dL DIABETES 126 mg/dL or higher Potassium [Moles/Vol] 3.8 mmol/L Normal 3.5-5.1 [facility] Sodium [Moles/Vol] 136 mmol/L Low 137-145 [facility] Urea nitrogen [Mass/Vol] 6 mg/dL Low 7-20 [facility] C REACTIVE PROTEINon 024 CRP [Mass/Vol] 33.6 mg/L High 0-10 [facility] 01-25-2024 ABSOLUTE BAS 0.0 10*3/uL Normal 0.0-0.2 [facility] ABSOLUTE EOS 0.2 10*3/uL Normal 0.0-0.7 [facility] ABSOLUTE NEUTROPHIL COUNT 3.7 10*3/uL Normal 1.4-6.5 [facility] Basophils/100 WBC (Bld) 0.7 % Normal 0.0-2.0 [facility] DTYPE AUTO DIFF Normal [facility] Eosinophils/100 WBC (Bld) 2.6 % Normal 0.0-11.0 [facility] Lymphocytes (Bld) [#/Vol] 1.2 10*3/uL Normal 1.2-3.4 [facility] Lymphocytes/100 WBC (Bld) 21.6 % Normal 20.0-55.0 [facility] Monocytes (Bld) [#/Vol] 0.6 10*3/uL Normal 0.0-0.7 [facility] Monocytes/100 WBC (Bld) 11.3 % High 0.0-10.0 [facility] Neutrophils/100 WBC (Bld) 63.8 % Normal 37.0-75.0 [facility] Erythrocyte distribution width (RBC) [Ratio] 14.4 % Normal 11.5-14.5 [facility] Hematocrit (Bld) [Volume fraction] 29.4 % Low 36.0-48.0 [facility] Hemoglobin (Bld) [Mass/Vol] 10.1 g/dL Low 12.0-16.0 [facility] MCH (RBC) [Entitic mass] 32.5 pg Normal 26.0-35.0 [facility] MCHC (RBC) [Mass/Vol] 34.3 g/dL Normal 27.0-37.0 [facility] MCV (RBC) [Entitic vol] 94.8 fL Normal 80.0-100.0 [facility] Platelet mean volume (Bld) [Entitic vol] 6.7 fL Low 7.4-11.0 [facility] Platelets (Bld) [#/Vol] 440 10*3/uL High 130-400 [facility] RBC (Bld) [#/Vol] 3.10 10*6/uL Low 4.0-5.4 [facility] WBC (Bld) [#/Vol] 5.7 10*3/uL Normal 3.6-11.0 [facility] Laboratory - Chemistry and C hemistry - challengeon 01-25-2024 Anion gap [Moles/Vol] 3 mmol/L Low [facility] Calcium [Mass/Vol] 8.3 mg/dL Low [facility] Chloride [Moles/Vol] 101 mmol/L [facility] CO2 [Moles/Vol] 32 mmol/L High [facility] Creatinine [Mass/Vol] 0.70 mg/dL [facility] CRP [Mass/Vol] 33.6 mg/L High 0 - 10 MG/L [facility] GFR/1.73 sq M.predicted among blacks MDRD (S/P/Bld) [Vol rate/Area] 103 mL/min/{1.73_m2} ml/min/1.73sq .m [facility] GFR/1.73 sq M.predicted among non-blacks MDRD (S/P/Bld) [Vol rate/Area] 85 mL/min/{1.73_m2} ml/min/1.73sq .m [facility] Glucose post fast [Mass/Vol] 92 mg/dL [facility] Potassium [Moles/Vol] 3.8 mmol/L [facility] Sodium [Moles/Vol] 136 mmol/L Low [facility] Urea nitrogen [Mass/Vol] 6 mg/dL Low [facility] Laboratory - Hematology and Cell countson 01-25-2024 Basophils/100 WBC (Bld) 0.7 % 0.0 - 2.0 % [facility] Differential cell count method Nom (Bld) AUTO DIFF % [facility] Eosinophils (Bld) [#/Vol] 0.2 10*3/uL 0.0 - 0.7 10*3/uL [facility] Eosinophils/100 WBC (Bld) 2.6 % 0.0 - 11.0 % [facility] Erythrocyte distribution width (RBC) [Ratio] 14.4 % 11.5 - 14.5 % [facility] Hematocrit (Bld) [Volume fraction] 29.4 % Low 36.0 - 48.0 % [facility] Hemoglobin (Bld) [Mass/Vol] 10.1 g/dL Low [facility] Lymphocytes (Bld) [#/Vol] 1.2 10*3/uL 1.2 - 3.4 10*3/uL [facility] Lymphocytes/100 WBC (Bld) 21.6 % 20.0 - 55.0 % [facility] MCH (RBC) [Entitic mass] 32.5 pg 26.0 - 35.0 PG [facility] MCHC (RBC) [Mass/Vol] 34.3 g/dL [facility] MCV (RBC) [Entitic vol] 94.8 fL [facility] Monocytes (Bld) [#/Vol] 0.6 10*3/uL 0.0 - 0.7 10*3/uL [facility] Monocytes/100 WBC (Bld) 11.3 % High 0.0 - 10.0 % [facility] Neutrophils (Bld) [#/Vol] 3.7 10*3/uL 1.4 - 6.5 10*3/uL [facility] Neutrophils/100 WBC (Bld) 63.8 % 37.0 - 75.0 % [facility] Platelet mean volume (Bld) [Entitic vol] 6.7 fL Low [facility] Platelets (Bld) [#/Vol] 440 10*3/uL High 130 - 400 10*3/uL [facility] RBC (Bld) [#/Vol] 3.10 10*6/uL Low 4.0 - 5.4 10*6/uL [facility] WBC (Bld) [#/Vol] 5.7 10*3/uL 3.6 - 11.0 10*3/uL [facility] No Panel Informationon 01-24 GFR COMMENT Average GFR for 70+ years old = 75. [facility] Interpretation and review of laboratory results Abnormal [facility] ABSOLUTE BASOPHIL COUNT 0.0 10*3/uL 0.0 - 0.2 10*3/uL [facility] Interpretation and review of laboratory results Abnormal [facility] BMP FASTINGon 01-24-2024 Anion gap [Moles/Vol] 2 mmol/L Low 8-16 [facility] Calcium [Mass/Vol] 8.5 mg/dL Normal 8.4-10.2 [facility] Chloride [Moles/Vol] 102 mmol/L Normal 98-107 [facility] Comment on above: Result Comment: Shonda matthews note: Triglyceride levels of 600mg/dL or higher may positively bias chloride results by approximately 2.1 mmol CO2 [Moles/Vol] 31 mmol/L High 22-30 [facility] Creatinine [Mass/Vol] 0.70 mg/dL Normal 0.7-1.2 [facility] EST. GFR, 103 ml/min/1.73sq.m Normal [facility] EST. GFR,Non 85 ml/min/1.73sq.m Normal [facility] GFR Information Average GFR for 70+ years old = 75. Normal [facility] Comment on above: Result Comment: Office Inspector aviva Kidney disease, GFR = <60. Kidney failure, GFR = <15. The GFR estimate is not adjusted for extreme body surface area or acute process, nor has it been validated for women or ethnic groups other than and . Glucose [Mass/Vol] 104 mg/dL High 70-100 [facility] Comment on above: Result Comment: NORMAL <100 mg/dL PREDIABETES 101-126 mg/dL DIABETES 126 mg/dL or higher Potassium [Moles/Vol] 3.5 mmol/L Normal 3.5-5.1 [facility] Sodium [Moles/Vol] 135 mmol/L Low 137-145 [facility] Urea nitrogen [Mass/Vol] 8 mg/dL Normal 7-20 [facility] C DIFFICILE DNAon 01-24-2024 C. DIFF 027 Negative Normal NEGATIVE [facility] Comment on above: Result Comment: Hype rvirulent C. difficile strain 027/NAP1/BI TESTING PERFORMED BY PCR Performed By: #### G IPAN ####[place] [address] TOXIGENIC C. DIFF Negative Normal NEGATIVE [facility] Comment on above: Performed By: #### G IPAN ####Testing performed at [address] [address] C REACTIVE PROTEINon 024 CRP [Mass/Vol] 46.5 mg/L High 0-10 [facility] 01-24-2024 ABSOLUTE BAS 0.0 10*3/uL Normal 0.0-0.2 [facility] ABSOLUTE EOS 0.1 10*3/uL Normal 0.0-0.7 [facility] ABSOLUTE NEUTROPHIL COUNT 4.2 10*3/uL Normal 1.4-6.5 [facility] Basophils/100 WBC (Bld) 0.7 % Normal 0.0-2.0 [facility] DTYPE AUTO DIFF Normal [facility] Eosinophils/100 WBC (Bld) 2.2 % Normal 0.0-11.0 [facility] Lymphocytes (Bld) [#/Vol] 1.2 10*3/uL Normal 1.2-3.4 [facility] Lymphocytes/100 WBC (Bld) 19.3 % Low 20.0-55.0 [facility] Monocytes (Bld) [#/Vol] 0.7 10*3/uL Normal 0.0-0.7 [facility] Monocytes/100 WBC (Bld) 10.6 % High 0.0-10.0 [facility] Neutrophils/100 WBC (Bld) 67.2 % Normal 37.0-75.0 [facility] Erythrocyte distribution width (RBC) [Ratio] 14.5 % Normal 11.5-14.5 [facility] Hematocrit (Bld) [Volume fraction] 29.3 % Low 36.0-48.0 [facility] Hemoglobin (Bld) [Mass/Vol] 10.1 g/dL Low 12.0-16.0 [facility] MCH (RBC) [Entitic mass] 32.7 pg Normal 26.0-35.0 [facility] MCHC (RBC) [Mass/Vol] 34.4 g/dL Normal 27.0-37.0 [facility] MCV (RBC) [Entitic vol] 95.1 fL Normal 80.0-100.0 [facility] Platelet mean volume (Bld) [Entitic vol] 6.8 fL Low 7.4-11.0 [facility] Platelets (Bld) [#/Vol] 424 10*3/uL High 130-400 [facility] RBC (Bld) [#/Vol] 3.08 10*6/uL Low 4.0-5.4 [facility] WBC (Bld) [#/Vol] 6.2 10*3/uL Normal 3.6-11.0 [facility] GI PANELon 01-24-2024 ADENOVIRUS F 40/41 Not detected Normal NOT DETECTED [facility] Comment on above: Result Comment: Mandi baugh: Nucleic acid may persist in vivo independently of organism viability. Additionally, some organisms may be carried asymptomatically. Detection of target organisms does not imply that the corresponding organisms are infectious or are the causative agent of clinical symptoms. Results must be correlated with clinical history, epidemiological data and other clinical information available. Testing performed at [place] [address] Performed By: #### G IPAN ####[place] [address] ASTROVIRUS Not detected Normal NOT DETECTED [facility] Comment on above: Performed By: #### G IPAN ####[place] [address] CAMPYLOBACTER Not detected Normal NOT DETECTED [facility] Comment on above: Performed By: #### G IPAN ####[place] [address] CRYPTOSPORIDIUM Not detected Normal NOT DETECTED [facility] Comment on above: Performed By: #### G IPAN ####[place] [address] CYCLOSPORA CAYETANENSIS Not detected Normal NOT DETECTED [facility] Comment on above: Performed By: #### G IPAN ####[place] [address] ENTAMOEBA HISTOLYTICA Not detected Normal NOT DETECTED [facility] Comment on above: Performed By: #### G IPAN ####[place] [address] ENTEROAGGREGATIVE E COLI Not detected Normal NOT DETECTED [facility] Comment on above: Performed By: #### G IPAN ####[place] [address] ENTEROTOXIGENIC E COLI Not detected Normal NOT DETECTED [facility] Comment on above: Performed By: #### G IPAN ####Testing performed at [address] [address] ENTROPATHOGENIC E COLI Not detected Normal NOT DETECTED [facility] Comment on above: Performed By: #### G IPAN ####Testing performed at [place] [id number] GIARDIA LAMBLIA Not detected Normal NOT DETECTED [facility] Comment on above: Performed By: #### G IPAN ####[place] [address] NOROVIRUS GI/GII Not detected Normal NOT DETECTED [facility] Comment on above: Performed By: #### G IPAN ####[place] [address] PLESIOMONAS SHIGELLOIDES Not detected Normal NOT DETECTED [facility] Comment on above: Performed By: #### G IPAN ####[place] [address] ROTAVIRUS A Not detected Normal NOT DETECTED [facility] Comment on above: Performed By: #### G IPAN ####[place] [address] SALMONELLA Not detected Normal NOT DETECTED [facility] Comment on above: Performed By: #### G IPAN ####[place] [address] SAPOVIRUS Not detected Normal NOT DETECTED [facility] Comment on above: Performed By: #### G IPAN ####Testing performed at [place] [id number] SHIGA-LIKE TOXIN-PRODUCING E COLI Not detected Normal NOT DETECTED [facility] Comment on above: Performed By: #### G IPAN ####Testing performed at [place] [id number] SHIGELLA/ENTEROINVASI VE E COLI Not detected Normal NOT DETECTED [facility] Comment on above: Performed By: #### G IPAN ####[place] [address] VIBRIO Not detected Normal NOT DETECTED [facility] Comment on above: Performed By: #### G IPAN ####[place] [address] VIBRIO CHOLERAE Not detected Normal NOT DETECTED [facility] Comment on above: Performed By: #### G IPAN ####[place] [address] YESINIA ENTEROCOLITICA Not detected Normal NOT DETECTED [facility] Comment on above: Performed By: #### G IPAN ####[place] [address] Laboratory - Chemistry and C hemistry - challengeon 01-24-2024 Anion gap [Moles/Vol] 2 mmol/L Low [facility] Calcium [Mass/Vol] 8.5 mg/dL [facility] Chloride [Moles/Vol] 102 mmol/L [facility] CO2 [Moles/Vol] 31 mmol/L High [facility] Creatinine [Mass/Vol] 0.70 mg/dL [facility] CRP [Mass/Vol] 46.5 mg/L High 0 - 10 MG/L [facility] GFR/1.73 sq M.predicted among blacks MDRD (S/P/Bld) [Vol rate/Area] 103 mL/min/{1.73_m2} ml/min/1.73sq .m [facility] GFR/1.73 sq M.predicted among non-blacks MDRD (S/P/Bld) [Vol rate/Area] 85 mL/min/{1.73_m2} ml/min/1.73sq .m [facility] Glucose post fast [Mass/Vol] 104 mg/dL [facility] Potassium [Moles/Vol] 3.5 mmol/L [facility] Sodium [Moles/Vol] 135 mmol/L Low [facility] Urea nitrogen [Mass/Vol] 8 mg/dL [facility] Laboratory - Hematology and Cell countson 01-24-2024 Basophils/100 WBC (Bld) 0.7 % 0.0 - 2.0 % [facility] Differential cell count method Nom (Bld) AUTO DIFF % [facility] Eosinophils (Bld) [#/Vol] 0.1 10*3/uL 0.0 - 0.7 10*3/uL [facility] Eosinophils/100 WBC (Bld) 2.2 % 0.0 - 11.0 % [facility] Erythrocyte distribution width (RBC) [Ratio] 14.5 % 11.5 - 14.5 % [facility] Hematocrit (Bld) [Volume fraction] 29.3 % Low 36.0 - 48.0 % [facility] Hemoglobin (Bld) [Mass/Vol] 10.1 g/dL Low [facility] Lymphocytes (Bld) [#/Vol] 1.2 10*3/uL 1.2 - 3.4 10*3/uL [facility] Lymphocytes/100 WBC (Bld) 19.3 % Low 20.0 - 55.0 % [facility] MCH (RBC) [Entitic mass] 32.7 pg 26.0 - 35.0 PG [facility] MCHC (RBC) [Mass/Vol] 34.4 g/dL [facility] MCV (RBC) [Entitic vol] 95.1 fL [facility] Monocytes (Bld) [#/Vol] 0.7 10*3/uL 0.0 - 0.7 10*3/uL [facility] Monocytes/100 WBC (Bld) 10.6 % High 0.0 - 10.0 % [facility] Neutrophils (Bld) [#/Vol] 4.2 10*3/uL 1.4 - 6.5 10*3/uL [facility] Neutrophils/100 WBC (Bld) 67.2 % 37.0 - 75.0 % [facility] Platelet mean volume (Bld) [Entitic vol] 6.8 fL Low [facility] Platelets (Bld) [#/Vol] 424 10*3/uL High 130 - 400 10*3/uL [facility] RBC (Bld) [#/Vol] 3.08 10*6/uL Low 4.0 - 5.4 10*6/uL [facility] WBC (Bld) [#/Vol] 6.2 10*3/uL 3.6 - 11.0 10*3/uL [facility] Laboratory - Microbiology an d Antimicrobial susceptibilityon 01-24-2024 Adenovirus 40+41 DNA SMILEY+non-probe Ql (Stl) Not detected NOT DETECTED [facility] Astrovirus subtypes 1-8 RNA SMILEY+non-probe Ql (Stl) Not detected NOT DETECTED [facility] C. cayetanensis DNA SMILEY+probe Ql (Unsp spec) Not detected NOT DETECTED [facility] C. coli+jejuni+upsaliens is DNA SMILEY+non-probe Ql (Stl) Not detected NOT DETECTED [facility] Cryptosporidium sp DNA SMILEY+probe Ql (Unsp spec) Not detected NOT DETECTED [facility] E. coli enteroaggregative Kandis plasmid aggR+aatA genes SMILEY+non-probe Ql (Stl) Not detected NOT DETECTED [facility] E. histolytica DNA SMILEY+probe Ql (Unsp spec) Not detected NOT DETECTED [facility] G. lamblia DNA SMILEY+non-probe Ql (Stl) Not detected NOT DETECTED [facility] P. shigelloides DNA SMILEY+non-probe Ql (Stl) Not detected NOT DETECTED [facility] Rotavirus A RNA SMILEY+non-probe Ql (Stl) Not detected NOT DETECTED [facility] S. enterica+bongori DNA SMILEY+non-probe Ql (Stl) Not detected NOT DETECTED [facility] V. cholerae DNA SMILEY+non-probe Ql (Stl) Not detected NOT DETECTED [facility] V. cholerae+parahaemolyt icus+vulnificus DNA SMILEY+non-probe Ql (Stl) Not detected NOT DETECTED [facility] Y. enterocolitica DNA SMILEY+non-probe Ql (Stl) Not detected NOT DETECTED [facility] No Panel Informationon 01-23 E COLI (EIEC) Not detected NOT DETECTED [facility] E COLI (EPEC) Not detected NOT DETECTED [facility] E COLI (ETEC) Not detected NOT DETECTED [facility] NOROVIRUS RNA Not detected NOT DETECTED [facility] SAPOVIRUS Not detected NOT DETECTED [facility] SHIGA TOXIN E. COLI Not detected NOT DETECTED A [facility] C. Diff 027 Negative NEGATIVE [facility] C.DIFFICILE TOXIN,PCR Negative NEGATIVE [facility] GFR COMMENT Average GFR for 70+ years old = 75. [facility] Interpretation and review of laboratory results Abnormal [facility] ABSOLUTE BASOPHIL COUNT 0.0 10*3/uL 0.0 - 0.2 10*3/uL [facility] Interpretation and review of laboratory results Abnormal [facility] BMP FASTINGon 01-23-2024 Anion gap [Moles/Vol] 1 mmol/L Low 8-16 [facility] Calcium [Mass/Vol] 8.5 mg/dL Normal 8.4-10.2 [facility] Chloride [Moles/Vol] 101 mmol/L Normal 98-107 [facility] Comment on above: Result Comment: Shonda matthews note: Triglyceride levels of 600mg/dL or higher may positively bias chloride results by approximately 2.1 mmol CO2 [Moles/Vol] 33 mmol/L High 22-30 [facility] Creatinine [Mass/Vol] 0.60 mg/dL Low 0.7-1.2 [facility] EST. GFR, 123 ml/min/1.73sq.m [facility] EST. GFR,Non 102 ml/min/1.73sq.m [facility] GFR Information Average GFR for 70+ years old = 75. Normal [facility] Comment on above: Result Comment: Office Inspector aviva Kidney disease, GFR = <60. Kidney failure, GFR = <15. The GFR estimate is not adjusted for extreme body surface area or acute process, nor has it been validated for women or ethnic groups other than and . Glucose [Mass/Vol] 96 mg/dL Normal 70-100 [facility] Comment on above: Result Comment: NORMAL <100 mg/dL PREDIABETES 101-126 mg/dL DIABETES 126 mg/dL or higher Potassium [Moles/Vol] 3.7 mmol/L Normal 3.5-5.1 [facility] Sodium [Moles/Vol] 135 mmol/L Low 137-145 [facility] Urea nitrogen [Mass/Vol] 8 mg/dL Normal 7-20 [facility] C REACTIVE PROTEINon 024 CRP [Mass/Vol] 42.0 mg/L High 0-10 [facility] 01-23-2024 ABSOLUTE BAS 0.0 10*3/uL Normal 0.0-0.2 [facility] ABSOLUTE EOS 0.1 10*3/uL Normal 0.0-0.7 [facility] ABSOLUTE NEUTROPHIL COUNT 4.0 10*3/uL Normal 1.4-6.5 [facility] Basophils/100 WBC (Bld) 0.8 % Normal 0.0-2.0 [facility] DTYPE AUTO DIFF Normal [facility] Eosinophils/100 WBC (Bld) 2.4 % Normal 0.0-11.0 [facility] Lymphocytes (Bld) [#/Vol] 1.2 10*3/uL Normal 1.2-3.4 [facility] Lymphocytes/100 WBC (Bld) 19.6 % Low 20.0-55.0 [facility] Monocytes (Bld) [#/Vol] 0.6 10*3/uL Normal 0.0-0.7 [facility] Monocytes/100 WBC (Bld) 9.8 % Normal 0.0-10.0 [facility] Neutrophils/100 WBC (Bld) 67.4 % Normal 37.0-75.0 [facility] Erythrocyte distribution width (RBC) [Ratio] 13.9 % Normal 11.5-14.5 [facility] Hematocrit (Bld) [Volume fraction] 29.1 % Low 36.0-48.0 [facility] Hemoglobin (Bld) [Mass/Vol] 10.0 g/dL Low 12.0-16.0 [facility] MCH (RBC) [Entitic mass] 32.2 pg Normal 26.0-35.0 [facility] MCHC (RBC) [Mass/Vol] 34.3 g/dL Normal 27.0-37.0 [facility] MCV (RBC) [Entitic vol] 94.0 fL Normal 80.0-100.0 [facility] Platelet mean volume (Bld) [Entitic vol] 6.7 fL Low 7.4-11.0 [facility] Platelets (Bld) [#/Vol] 425 10*3/uL High 130-400 [facility] RBC (Bld) [#/Vol] 3.10 10*6/uL Low 4.0-5.4 [facility] WBC (Bld) [#/Vol] 6.0 10*3/uL Normal 3.6-11.0 [facility] LIPASE,SERUMon 01-23-2024 LIPASE,SERUM 32 U/L Normal 23-300 [facility] LIVER PANELon 01-23-2024 Albumin [Mass/Vol] 2.6 g/dL Low 3.5-5.0 [facility] ALP [Catalytic activity/Vol] 99 U/L Normal 38-126 [facility] ALT [Catalytic activity/Vol] 10 U/L Normal <35 [facility] AST [Catalytic activity/Vol] 25 U/L Normal 14-36 [facility] Bilirubin [Mass/Vol] 0.3 mg/dL Normal 0.2-1.3 [facility] Bilirubin.indirect [Mass/Vol] 0.3 mg/dL Normal 0-0.4 [facility] Protein [Mass/Vol] 5.6 g/dL Low 6.3-8.2 [facility] Laboratory - Chemistry and C hemistry - challengeon 01-23-2024 Albumin [Mass/Vol] 2.6 g/dL Low [facility] ALP [Catalytic activity/Vol] 99 U/L [facility] ALT [Catalytic activity/Vol] 10 U/L NINF [facility] Anion gap [Moles/Vol] 1 mmol/L Low [facility] AST [Catalytic activity/Vol] 25 U/L [facility] [facility] Bil[facility] [Mass/Vol] 0.3 mg/dL [facility] Bilirubin.direct [Mass/Vol] 0.3 mg/dL [facility] Calcium [Mass/Vol] 8.5 mg/dL [facility] Chloride [Moles/Vol] 101 mmol/L [facility] CO2 [Moles/Vol] 33 mmol/L High [facility] Creatinine [Mass/Vol] 0.60 mg/dL Low [facility] CRP [Mass/Vol] 42.0 mg/L High 0 - 10 MG/L [facility] GFR/1.73 sq M.predicted among blacks MDRD (S/P/Bld) [Vol rate/Area] 123 mL/min/{1.73_m2} ml/min/1.73sq .m [facility] GFR/1.73 sq M.predicted among non-blacks MDRD (S/P/Bld) [Vol rate/Area] 102 mL/min/{1.73_m2} ml/min/1.73sq .m [facility] Glucose post fast [Mass/Vol] 96 mg/dL [facility] Lipase [Catalytic activity/Vol] 32 U/L 23 - 300 U/L [facility] Potassium [Moles/Vol] 3.7 mmol/L [facility] Protein [Mass/Vol] 5.6 g/dL Low [facility] Sodium [Moles/Vol] 135 mmol/L Low [facility] Urea nitrogen [Mass/Vol] 8 mg/dL [facility] Laboratory - Hematology and Cell countson 01-23-2024 Basophils/100 WBC (Bld) 0.8 % 0.0 - 2.0 % [facility] Differential cell count method Nom (Bld) AUTO DIFF % [facility] Eosinophils (Bld) [#/Vol] 0.1 10*3/uL 0.0 - 0.7 10*3/uL [facility] Eosinophils/100 WBC (Bld) 2.4 % 0.0 - 11.0 % [facility] Erythrocyte distribution width (RBC) [Ratio] 13.9 % 11.5 - 14.5 % [facility] Hematocrit (Bld) [Volume fraction] 29.1 % Low 36.0 - 48.0 % [facility] Hemoglobin (Bld) [Mass/Vol] 10.0 g/dL Low [facility] Lymphocytes (Bld) [#/Vol] 1.2 10*3/uL 1.2 - 3.4 10*3/uL [facility] Lymphocytes/100 WBC (Bld) 19.6 % Low 20.0 - 55.0 % [facility] MCH (RBC) [Entitic mass] 32.2 pg 26.0 - 35.0 PG [facility] MCHC (RBC) [Mass/Vol] 34.3 g/dL [facility] MCV (RBC) [Entitic vol] 94.0 fL [facility] Monocytes (Bld) [#/Vol] 0.6 10*3/uL 0.0 - 0.7 10*3/uL [facility] Monocytes/100 WBC (Bld) 9.8 % 0.0 - 10.0 % [facility] Neutrophils (Bld) [#/Vol] 4.0 10*3/uL 1.4 - 6.5 10*3/uL [facility] Neutrophils/100 WBC (Bld) 67.4 % 37.0 - 75.0 % [facility] Platelet mean volume (Bld) [Entitic vol] 6.7 fL Low [facility] Platelets (Bld) [#/Vol] 425 10*3/uL High 130 - 400 10*3/uL [facility] RBC (Bld) [#/Vol] 3.10 10*6/uL Low 4.0 - 5.4 10*6/uL [facility] WBC (Bld) [#/Vol] 6.0 10*3/uL 3.6 - 11.0 10*3/uL [facility] Laboratory - Microbiology an d Antimicrobial susceptibilityon 01-23-2024 Bacteria identified Cx Nom (Unsp spec) NO PATHOGENS ISOLATED [facility] Laboratory - Miscellaneous t estson 01-23-2024 Service comment (Unsp spec) [Interp] 01/23/2024 [facility] Laboratory - Urinalysison Leukocyte esterase+Nitrite Test strip Ql (U) Positive [facility] No Panel Informationon 01-22 SPECIMEN DESCRIPTION URINE - OTHER A [facility] GFR COMMENT Average GFR for 70+ years old = 75. [facility] Interpretation and review of laboratory results Abnormal [facility] ABSOLUTE BASOPHIL COUNT 0.0 10*3/uL 0.0 - 0.2 10*3/uL [facility] Interpretation and review of laboratory results Abnormal [facility] BMP FASTINGon 01-22-2024 Anion gap [Moles/Vol] 3 mmol/L Low 8-16 [facility] Comment on above: Performed By: #### F EPRO ####Testing performed at [address] [address] Calcium [Mass/Vol] 8.8 mg/dL Normal 8.4-10.2 [facility] Comment on above: Performed By: #### F EPRO ####Testing performed at [address] [address] Chloride [Moles/Vol] 101 mmol/L Normal 98-107 [facility] Comment on above: Result Comment: Shonda matthews note: Triglyceride levels of 600mg/dL or higher may positively bias chloride results by approximately 2.1 mmol Performed By: #### F EPRO ####Testing performed at [address] [address] CO2 [Moles/Vol] 33 mmol/L High 22-30 [facility] Comment on above: Performed By: #### F EPRO ####Testing performed at [address] [address] Creatinine [Mass/Vol] 0.60 mg/dL Low 0.7-1.2 [facility] Comment on above: Performed By: #### F EPRO ####Testing performed at [address] [place] [address] EST. GFR, 123 ml/min/1.73sq.m [facility] Comment on above: Performed By: #### F EPRO ####Testing performed at [address] [place] [address] EST. GFR,Non 102 ml/min/1.73sq.m [facility] Comment on above: Performed By: #### F EPRO ####Testing performed at [address] [place] [address] GFR Information Average GFR for 70+ years old = 75. Normal [facility] Comment on above: Result Comment: Office Inspector aviva Kidney disease, GFR = <60. Kidney failure, GFR = <15. The GFR estimate is not adjusted for extreme body surface area or acute process, nor has it been validated for women or ethnic groups other than and . Performed By: #### F EPRO ####Testing performed at [address] [address] Glucose [Mass/Vol] 88 mg/dL Normal 70-100 [facility] Comment on above: Result Comment: NORMAL <100 mg/dL PREDIABETES 101-126 mg/dL DIABETES 126 mg/dL or higher Performed By: #### F EPRO ####Testing performed at [address] [address] Potassium [Moles/Vol] 3.7 mmol/L Normal 3.5-5.1 [facility] Comment on above: Performed By: #### F EPRO ####Testing performed at [address] [address] Sodium [Moles/Vol] 137 mmol/L Normal 137-145 [facility] Comment on above: Performed By: #### F EPRO ####Testing performed at [address] [address] Urea nitrogen [Mass/Vol] 8 mg/dL Normal 7-20 [facility] Comment on above: Performed By: #### F EPRO ####Testing performed at [address] [address] C REACTIVE PROTEINon 024 CRP [Mass/Vol] 58.3 mg/L High 0-10 [facility] Comment on above: Performed By: #### F EPRO ####Testing performed at [address] [address] CBCon 01-22-2024 ABSOLUTE BAS 0.0 10*3/uL Normal 0.0-0.2 [facility] Comment on above: Performed By: #### F EPRO ####Testing performed at [address] [place] [address] ABSOLUTE EOS 0.2 10*3/uL Normal 0.0-0.7 [facility] Comment on above: Performed By: #### F EPRO ####Testing performed at [address] [place] [address] ABSOLUTE NEUTROPHIL COUNT 3.8 10*3/uL Normal 1.4-6.5 [facility] Comment on above: Performed By: #### F EPRO ####Testing performed at [address] [place] [address] Basophils/100 WBC (Bld) 0.9 % Normal 0.0-2.0 [facility] Comment on above: Performed By: #### F EPRO ####Testing performed at [address] [place] [address] DTYPE AUTO DIFF Normal [facility] Comment on above: Performed By: #### F EPRO ####Testing performed at [address] [place] [address] Eosinophils/100 WBC (Bld) 3.2 % Normal 0.0-11.0 [facility] Comment on above: Performed By: #### F EPRO ####Testing performed at [address] [place] [address] Lymphocytes (Bld) [#/Vol] 1.1 10*3/uL Low 1.2-3.4 [facility] Comment on above: Performed By: #### F EPRO ####Testing performed at [address] [place] [address] Lymphocytes/100 WBC (Bld) 19.3 % Low 20.0-55.0 [facility] Comment on above: Performed By: #### F EPRO ####Testing performed at [address] [place] [address] Monocytes (Bld) [#/Vol] 0.5 10*3/uL Normal 0.0-0.7 [facility] Comment on above: Performed By: #### F EPRO ####Testing performed at [address] [address] Monocytes/100 WBC (Bld) 8.5 % Normal 0.0-10.0 [facility] Comment on above: Performed By: #### F EPRO ####Testing performed at [address] [address] Neutrophils/100 WBC (Bld) 68.1 % Normal 37.0-75.0 [facility] Comment on above: Performed By: #### F EPRO ####Testing performed at [address] [address] Erythrocyte distribution width (RBC) [Ratio] 14.1 % Normal 11.5-14.5 [facility] Comment on above: Performed By: #### F EPRO ####Testing performed at [address] [place] [address] Hematocrit (Bld) [Volume fraction] 31.8 % Low 36.0-48.0 [facility] Comment on above: Performed By: #### F EPRO ####Testing performed at [address] [place] [address] Hemoglobin (Bld) [Mass/Vol] 10.7 g/dL Low 12.0-16.0 [facility] Comment on above: Performed By: #### F EPRO ####Testing performed at [address] [address] MCH (RBC) [Entitic mass] 31.7 pg Normal 26.0-35.0 [facility] Comment on above: Performed By: #### F EPRO ####Testing performed at [address] [place] [address] MCHC (RBC) [Mass/Vol] 33.6 g/dL Normal 27.0-37.0 [facility] Comment on above: Performed By: #### F EPRO ####Testing performed at [address] [address] MCV (RBC) [Entitic vol] 94.6 fL Normal 80.0-100.0 [facility] Comment on above: Performed By: #### F EPRO ####Testing performed at [address] [address] Platelet mean volume (Bld) [Entitic vol] 7.0 fL Low 7.4-11.0 [facility] Comment on above: Performed By: #### F EPRO ####Testing performed at [address] [address] Platelets (Bld) [#/Vol] 407 10*3/uL High 130-400 [facility] Comment on above: Performed By: #### F EPRO ####Testing performed at [address] [address] RBC (Bld) [#/Vol] 3.36 10*6/uL Low 4.0-5.4 [facility] Comment on above: Performed By: #### F EPRO ####Testing performed at [address] [address] WBC (Bld) [#/Vol] 5.6 10*3/uL Normal 3.6-11.0 [facility] Comment on above: Performed By: #### F EPRO ####Testing performed at [address] [address] ESRon 01-22-2024 ESR (Bld) [Velocity] 71 mm/h High 0-30 [facility] Comment on above: Performed By: #### F EPRO ####Testing performed at [address] [place] [address] IRON PROFILEon 01-22-2024 IRON BINDING 164 UG/DL Low 250-450 [facility] Comment on above: Performed By: #### F EPRO ####Testing performed at [address] [place] [place] [address] TRANSFERRIN SATURATION,CALCULATED 23 % Normal [facility] Comment on above: Performed By: #### F EPRO ####Testing performed at [address] [place] [place] [address] Iron [Mass/Vol] 37 ug/dL Normal 37-170 [facility] Comment on above: Performed By: #### F EPRO ####Testing performed at [address] [place] [address] Laboratory - Chemistry and C hemistry - challengeon 01-22-2024 Iron [Mass/Vol] 37 ug/dL [facility] Iron binding capacity [Mass/Vol] 164 Low [facility] Iron saturation [Mass fraction] 23 % [facility] Anion gap [Moles/Vol] 3 mmol/L Low [facility] Calcium [Mass/Vol] 8.8 mg/dL [facility] Chloride [Moles/Vol] 101 mmol/L [facility] CO2 [Moles/Vol] 33 mmol/L High [facility] Creatinine [Mass/Vol] 0.60 mg/dL Low [facility] CRP [Mass/Vol] 58.3 mg/L High 0 - 10 MG/L [facility] GFR/1.73 sq M.predicted among blacks MDRD (S/P/Bld) [Vol rate/Area] 123 mL/min/{1.73_m2} ml/min/1.73sq .m [facility] GFR/1.73 sq M.predicted among non-blacks MDRD (S/P/Bld) [Vol rate/Area] 102 mL/min/{1.73_m2} ml/min/1.73sq .m [facility] Glucose post fast [Mass/Vol] 88 mg/dL [facility] Potassium [Moles/Vol] 3.7 mmol/L [facility] Sodium [Moles/Vol] 137 mmol/L [facility] Urea nitrogen [Mass/Vol] 8 mg/dL [facility] Laboratory - Hematology and Cell countson 01-22-2024 ESR (Bld) [Velocity] 71 mm/h High [facility] Basophils/100 WBC (Bld) 0.9 % 0.0 - 2.0 % [facility] Differential cell count method Nom (Bld) AUTO DIFF % [facility] Eosinophils (Bld) [#/Vol] 0.2 10*3/uL 0.0 - 0.7 10*3/uL [facility] Eosinophils/100 WBC (Bld) 3.2 % 0.0 - 11.0 % [facility] Erythrocyte distribution width (RBC) [Ratio] 14.1 % 11.5 - 14.5 % [facility] Hematocrit (Bld) [Volume fraction] 31.8 % Low 36.0 - 48.0 % [facility] Hemoglobin (Bld) [Mass/Vol] 10.7 g/dL Low [facility] Lymphocytes (Bld) [#/Vol] 1.1 10*3/uL Low 1.2 - 3.4 10*3/uL [facility] Lymphocytes/100 WBC (Bld) 19.3 % Low 20.0 - 55.0 % [facility] MCH (RBC) [Entitic mass] 31.7 pg 26.0 - 35.0 PG [facility] MCHC (RBC) [Mass/Vol] 33.6 g/dL [facility] MCV (RBC) [Entitic vol] 94.6 fL [facility] Monocytes (Bld) [#/Vol] 0.5 10*3/uL 0.0 - 0.7 10*3/uL [facility] Monocytes/100 WBC (Bld) 8.5 % 0.0 - 10.0 % [facility] Neutrophils (Bld) [#/Vol] 3.8 10*3/uL 1.4 - 6.5 10*3/uL [facility] Neutrophils/100 WBC (Bld) 68.1 % 37.0 - 75.0 % [facility] Platelet mean volume (Bld) [Entitic vol] 7.0 fL Low [facility] Platelets (Bld) [#/Vol] 407 10*3/uL High 130 - 400 10*3/uL [facility] RBC (Bld) [#/Vol] 3.36 10*6/uL Low 4.0 - 5.4 10*6/uL [facility] WBC (Bld) [#/Vol] 5.6 10*3/uL 3.6 - 11.0 10*3/uL [facility] No Panel Informationon 01-21 Interpretation and review of laboratory results Abnormal [facility] Interpretation and review of laboratory results Abnormal [facility] GFR COMMENT Average GFR for 70+ years old = 75. [facility] Interpretation and review of laboratory results Abnormal [facility] ABSOLUTE BASOPHIL COUNT 0.0 10*3/uL 0.0 - 0.2 10*3/uL [facility] Interpretation and review of laboratory results Abnormal [facility] BMP FASTINGon 01-21-2024 Anion gap [Moles/Vol] 3 mmol/L Low 8-16 [facility] Calcium [Mass/Vol] 8.6 mg/dL Normal 8.4-10.2 [facility] Chloride [Moles/Vol] 102 mmol/L Normal 98-107 [facility] Comment on above: Result Comment: Plea se note: Triglyceride levels of 600mg/dL or higher may positively bias chloride results by approximately 2.1 mmol CO2 [Moles/Vol] 32 mmol/L High 22-30 [facility] Creatinine [Mass/Vol] 0.60 mg/dL Low 0.7-1.2 [facility] EST. GFR, 123 ml/min/1.73sq.m [facility] EST. GFR,Non 102 ml/min/1.73sq.m [facility] GFR Information Average GFR for 70+ years old = 75. Normal [facility] Comment on above: Result Comment: Office Inspector aviva Kidney disease, GFR = <60. Kidney failure, GFR = <15. The GFR estimate is not adjusted for extreme body surface area or acute process, nor has it been validated for women or ethnic groups other than and . Glucose [Mass/Vol] 100 mg/dL Normal 70-100 [facility] Comment on above: Result Comment: NORMAL <100 mg/dL PREDIABETES 101-126 mg/dL DIABETES 126 mg/dL or higher Potassium [Moles/Vol] 3.6 mmol/L Normal 3.5-5.1 [facility] Sodium [Moles/Vol] 137 mmol/L Normal 137-145 [facility] Urea nitrogen [Mass/Vol] 8 mg/dL Normal 7-20 [facility] CBCon 01-21-2024 ABSOLUTE BAS 0.0 10*3/uL Normal 0.0-0.2 [facility] ABSOLUTE EOS 0.2 10*3/uL Normal 0.0-0.7 [facility] ABSOLUTE NEUTROPHIL COUNT 3.9 10*3/uL Normal 1.4-6.5 [facility] Basophils/100 WBC (Bld) 0.6 % Normal 0.0-2.0 [facility] DTYPE AUTO DIFF Normal [facility] Eosinophils/100 WBC (Bld) 3.6 % Normal 0.0-11.0 [facility] Lymphocytes (Bld) [#/Vol] 1.2 10*3/uL Normal 1.2-3.4 [facility] Lymphocytes/100 WBC (Bld) 19.7 % Low 20.0-55.0 [facility] Monocytes (Bld) [#/Vol] 0.6 10*3/uL Normal 0.0-0.7 [facility] Monocytes/100 WBC (Bld) 9.9 % Normal 0.0-10.0 [facility] Neutrophils/100 WBC (Bld) 66.2 % Normal 37.0-75.0 [facility] Erythrocyte distribution width (RBC) [Ratio] 14.1 % Normal 11.5-14.5 [facility] Hematocrit (Bld) [Volume fraction] 27.7 % Low 36.0-48.0 [facility] Hemoglobin (Bld) [Mass/Vol] 9.5 g/dL Low 12.0-16.0 [facility] MCH (RBC) [Entitic mass] 32.6 pg Normal 26.0-35.0 [facility] MCHC (RBC) [Mass/Vol] 34.3 g/dL Normal 27.0-37.0 [facility] MCV (RBC) [Entitic vol] 95.0 fL Normal 80.0-100.0 [facility] Platelet mean volume (Bld) [Entitic vol] 6.9 fL Low 7.4-11.0 [facility] Platelets (Bld) [#/Vol] 370 10*3/uL Normal 130-400 [facility] RBC (Bld) [#/Vol] 2.91 10*6/uL Low 4.0-5.4 [facility] WBC (Bld) [#/Vol] 5.9 10*3/uL Normal 3.6-11.0 [facility] Laboratory - Chemistry and C hemistry - challengeon 01-21-2024 Anion gap [Moles/Vol] 3 mmol/L Low [facility] Calcium [Mass/Vol] 8.6 mg/dL [facility] Chloride [Moles/Vol] 102 mmol/L [facility] CO2 [Moles/Vol] 32 mmol/L High [facility] Creatinine [Mass/Vol] 0.60 mg/dL Low [facility] GFR/1.73 sq M.predicted among blacks MDRD (S/P/Bld) [Vol rate/Area] 123 mL/min/{1.73_m2} ml/min/1.73sq .m [facility] GFR/1.73 sq M.predicted among non-blacks MDRD (S/P/Bld) [Vol rate/Area] 102 mL/min/{1.73_m2} ml/min/1.73sq .m [facility] Glucose post fast [Mass/Vol] 100 mg/dL [facility] Potassium [Moles/Vol] 3.6 mmol/L [facility] Sodium [Moles/Vol] 137 mmol/L [facility] Urea nitrogen [Mass/Vol] 8 mg/dL [facility] Laboratory - Hematology and Cell countson 01-21-2024 Basophils/100 WBC (Bld) 0.6 % 0.0 - 2.0 % [facility] Differential cell count method Nom (Bld) AUTO DIFF % [facility] Eosinophils (Bld) [#/Vol] 0.2 10*3/uL 0.0 - 0.7 10*3/uL [facility] Eosinophils/100 WBC (Bld) 3.6 % 0.0 - 11.0 % [facility] Erythrocyte distribution width (RBC) [Ratio] 14.1 % 11.5 - 14.5 % [facility] Hematocrit (Bld) [Volume fraction] 27.7 % Low 36.0 - 48.0 % [facility] Hemoglobin (Bld) [Mass/Vol] 9.5 g/dL Low [facility] Lymphocytes (Bld) [#/Vol] 1.2 10*3/uL 1.2 - 3.4 10*3/uL [facility] Lymphocytes/100 WBC (Bld) 19.7 % Low 20.0 - 55.0 % [facility] MCH (RBC) [Entitic mass] 32.6 pg 26.0 - 35.0 PG [facility] MCHC (RBC) [Mass/Vol] 34.3 g/dL [facility] MCV (RBC) [Entitic vol] 95.0 fL [facility] Monocytes (Bld) [#/Vol] 0.6 10*3/uL 0.0 - 0.7 10*3/uL [facility] Monocytes/100 WBC (Bld) 9.9 % 0.0 - 10.0 % [facility] Neutrophils (Bld) [#/Vol] 3.9 10*3/uL 1.4 - 6.5 10*3/uL [facility] Neutrophils/100 WBC (Bld) 66.2 % 37.0 - 75.0 % [facility] Platelet mean volume (Bld) [Entitic vol] 6.9 fL Low [facility] Platelets (Bld) [#/Vol] 370 10*3/uL 130 - 400 10*3/uL [facility] RBC (Bld) [#/Vol] 2.91 10*6/uL Low 4.0 - 5.4 10*6/uL [facility] WBC (Bld) [#/Vol] 5.9 10*3/uL 3.6 - 11.0 10*3/uL [facility] Laboratory - Microbiology an d Antimicrobial susceptibilityon 01-21-2024 MRSA isol Org specific cx Ql (Nose) Negative NEGATIVE [facility] Laboratory - Urinalysison Bacteria LM.HPF (Urine sed) [#/Area] TRACE Abnormal NEGATIVE [facility] Casts LM.LPF (Urine sed) [#/Area] NONE NONE /LPF [facility] Crystals LM Nom (Urine sed) NONE NONE [facility] Epithelial cells LM Ql (Urine sed) 1 TO 5 /HPF [facility] Mucus Ql (Urine sed) Negative NEGATIVE [facility] RBC LM.HPF (Urine sed) [#/Area] 1 TO 5 NEGATIVE /HPF [facility] Urine sediment comments LM Girish (Urine sed) REFLEX CULTURE PER ESTABLISHED CRITERIA. [facility] WBC LM.HPF (Urine sed) [#/Area] Negative NEGATIVE /HPF [facility] MRSA SCREENon 01-21-2024 MRSA DNA SMILEY+probe Ql (Unsp spec) Negative Normal NEGATIVE [facility] STAPH AUREUS SCREEN Negative Normal NEGATIVE [facility] Comment on above: Result Comment: TEST ING PERFORMED BY PCR No Panel Informationon 01-20 Interpretation and review of laboratory results Abnormal [facility] STAPHYOCOCCUS AUREUS BY PCR Negative NEGATIVE [facility] GFR COMMENT Average GFR for 70+ years old = 75. [facility] Interpretation and review of laboratory results Abnormal [facility] ABSOLUTE BASOPHIL COUNT 0.0 10*3/uL 0.0 - 0.2 10*3/uL [facility] Interpretation and review of laboratory results Abnormal [facility] URINE CULTUREon 01-21-2024 Bacteria identified Cx Nom (U) SPECIMEN DESCRIPTION URINE - OTHER UA DIPSTICK LEUKOCYTE POSITIVE * Result Note: NITRITE NEGATIVE * CULTURE NO PATHOGENS ISOLATED * Result Note: Testing performed at [place] [address] * REPORT STATUS 01/23/2024 * Result Note: FINAL * Normal [facility] Comment on above: Performed By: #### A URNC #### Testing performed at [address] [address] Testing performed at [address] [address] URINE MICROSCOPICon 01-21-20 24 BACTERIA TRACE Abnormal NEGATIVE [facility] CASTS NONE Normal NONE [facility] CRYSTAL NONE Normal NONE [facility] Epithelial cells LM Ql (Urine sed) 1 TO 5 Normal [facility] Mucus Ql (Urine sed) Negative Normal NEGATIVE [facility] URINE COMMENT REFLEX CULTURE PER ESTABLISHED CRITERIA. Normal [facility] URINE RBC'S 1 TO 5 Normal NEGATIVE [facility] URINE WBC'S Negative Normal NEGATIVE [facility] 25 0H VITAMIN D LEVELon 25 0H VITAMIN D LEVEL 16.9 NG/ML Normal [facility] Comment on above: Result Comment: DEFICIENT <20 NG/ML INSUFFICIENT 20-<30 NG/ML SUFFICIENT 30-100 NG/ML POTENTIAL TOXICITY >100 NG/ML BMP FASTINGon 01-20-2024 Anion gap [Moles/Vol] 2 mmol/L Low 8-16 [facility] Comment on above: Performed By: #### A CBC, FEPRO ####Testing performed at [address] [address] Calcium [Mass/Vol] 8.3 mg/dL Low 8.4-10.2 [facility] Comment on above: Performed By: #### A CBC, FEPRO ####Testing performed at [address] [address] Chloride [Moles/Vol] 103 mmol/L Normal 98-107 [facility] Comment on above: Result Comment: Plea se note: Triglyceride levels of 600mg/dL or higher may positively bias chloride results by approximately 2.1 mmol Performed By: #### A CBC, FEPRO ####Testing performed at [address] [address] CO2 [Moles/Vol] 31 mmol/L High 22-30 [facility] Comment on above: Performed By: #### A CBC, FEPRO ####Testing performed at [address] [address] Creatinine [Mass/Vol] 0.60 mg/dL Low 0.7-1.2 [facility] Comment on above: Performed By: #### A CBC, FEPRO ####Testing performed at [address] [address] EST. GFR, 123 ml/min/1.73sq.m [facility] Comment on above: Performed By: #### A CBC, FEPRO ####Testing performed at [address] [address] EST. GFR,Non 102 ml/min/1.73sq.m [facility] Comment on above: Performed By: #### A CBC, FEPRO ####Testing performed at [place] [id number] GFR Information Average GFR for 70+ years old = 75. [facility] Comment on above: Result Comment: Office Inspector aviva Kidney disease, GFR = <60. Kidney failure, GFR = <15. The GFR estimate is not adjusted for extreme body surface area or acute process, nor has it been validated for women or ethnic groups other than and . Performed By: #### A CBC, FEPRO ####Testing performed at [place] [id number] Glucose [Mass/Vol] 91 mg/dL Normal 70-100 [facility] Comment on above: Result Comment: NORMAL <100 mg/dL PREDIABETES 101-126 mg/dL DIABETES 126 mg/dL or higher Performed By: #### A CBC, FEPRO ####Testing performed at [address] [address] Potassium [Moles/Vol] 3.8 mmol/L Normal 3.5-5.1 [facility] Comment on above: Performed By: #### A CBC, FEPRO ####Testing performed at [place] [id number] Sodium [Moles/Vol] 136 mmol/L Low 137-145 [facility] Comment on above: Performed By: #### A CBC, FEPRO ####Testing performed at [facility] [address] [address] Urea nitrogen [Mass/Vol] 9 mg/dL Normal 7-20 [facility] Comment on above: Performed By: #### A CBC, FEPRO ####Testing performed at [address] [address] CBCon 01-20-2024 ABSOLUTE BAS 0.0 10*3/uL Normal 0.0-0.2 [facility] Comment on above: Performed By: #### A CBC, FEPRO ####Testing performed at [address] [address] ABSOLUTE EOS 0.2 10*3/uL Normal 0.0-0.7 [facility] Comment on above: Performed By: #### A CBC, FEPRO ####Testing performed at [address] [address] ABSOLUTE NEUTROPHIL COUNT 4.1 10*3/uL Normal 1.4-6.5 [facility] Comment on above: Performed By: #### A CBC, FEPRO ####Testing performed at [address] [address] Basophils/100 WBC (Bld) 0.8 % Normal 0.0-2.0 [facility] Comment on above: Performed By: #### A CBC, FEPRO ####Testing performed at [address] [address] DTYPE AUTO DIFF Normal [facility] Comment on above: Performed By: #### A CBC, FEPRO ####Testing performed at [address] [address] Eosinophils/100 WBC (Bld) 3.0 % Normal 0.0-11.0 [facility] Comment on above: Performed By: #### A CBC, FEPRO ####Testing performed at [address] [address] Lymphocytes (Bld) [#/Vol] 1.2 10*3/uL Normal 1.2-3.4 [facility] Comment on above: Performed By: #### A CBC, FEPRO ####Testing performed at [address] [address] Lymphocytes/100 WBC (Bld) 19.6 % Low 20.0-55.0 [facility] Comment on above: Performed By: #### A CBC, FEPRO ####Testing performed at [address] [address] Monocytes (Bld) [#/Vol] 0.7 10*3/uL Normal 0.0-0.7 [facility] Comment on above: Performed By: #### A CBC, FEPRO ####Testing performed at [address] [address] Monocytes/100 WBC (Bld) 10.9 % High 0.0-10.0 [facility] Comment on above: Performed By: #### A CBC, FEPRO ####Testing performed at [address] [address] Neutrophils/100 WBC (Bld) 65.7 % Normal 37.0-75.0 [facility] Comment on above: Performed By: #### A CBC, FEPRO ####Testing performed at [address] [address] Erythrocyte distribution width (RBC) [Ratio] 14.0 % Normal 11.5-14.5 [facility] Comment on above: Performed By: #### A CBC, FEPRO ####Testing performed at [address] [address] Hematocrit (Bld) [Volume fraction] 27.6 % Low 36.0-48.0 [facility] Comment on above: Performed By: #### A CBC, FEPRO ####Testing performed at [address] [address] Hemoglobin (Bld) [Mass/Vol] 9.4 g/dL Low 12.0-16.0 [facility] Comment on above: Performed By: #### A CBC, FEPRO ####Testing performed at [address] [address] MCH (RBC) [Entitic mass] 32.3 pg Normal 26.0-35.0 [facility] Comment on above: Performed By: #### A CBC, FEPRO ####Testing performed at [address] [address] MCHC (RBC) [Mass/Vol] 34.0 g/dL Normal 27.0-37.0 [facility] Comment on above: Performed By: #### A CBC, FEPRO ####Testing performed at [address] [address] MCV (RBC) [Entitic vol] 95.0 fL Normal 80.0-100.0 [facility] Comment on above: Performed By: #### A CBC, FEPRO ####Testing performed at [address] [address] Platelet mean volume (Bld) [Entitic vol] 6.9 fL Low 7.4-11.0 [facility] Comment on above: Performed By: #### A CBC, FEPRO ####Testing performed at [address] [address] Platelets (Bld) [#/Vol] 357 10*3/uL Normal 130-400 [facility] Comment on above: Performed By: #### A CBC, FEPRO ####Testing performed at [address] [address] RBC (Bld) [#/Vol] 2.90 10*6/uL Low 4.0-5.4 [facility] Comment on above: Performed By: #### A CBC, FEPRO ####Testing performed at [address] [address] WBC (Bld) [#/Vol] 6.3 10*3/uL Normal 3.6-11.0 [facility] Comment on above: Performed By: #### A CBC, FEPRO ####Testing performed at [facility] [place] [address] IRON PROFILEon 01-20-2024 IRON BINDING 144 UG/DL Low 250-450 [facility] Comment on above: Performed By: #### A CBC #### Testing performed at [place] [address] [place] [address] TRANSFERRIN SATURATION,CALCULATED 20 % Normal [facility] Comment on above: Performed By: #### A CBC #### Testing performed at [place] [address] [place] [address] Iron [Mass/Vol] 29 ug/dL Low 37-170 [facility] Comment on above: Performed By: #### A CBC #### Testing performed at [place] [address] [place] [address] Laboratory - Chemistry and C hemistry - challengeon 01-20-2024 25-hydroxyvitamin D [Mass/Vol] 16.9 NG/ML [facility] Parathyrin.intact [Mass/Vol] 40.2 pg/mL 14.5 - 75.2 pg/mL [facility] Iron [Mass/Vol] 29 ug/dL Low [facility] Iron binding capacity [Mass/Vol] 144 Low [facility] Anion gap [Moles/Vol] 2 mmol/L Low [facility] Calcium [Mass/Vol] 8.3 mg/dL Low [facility] Chloride [Moles/Vol] 103 mmol/L [facility] CO2 [Moles/Vol] 31 mmol/L High [facility] Creatinine [Mass/Vol] 0.60 mg/dL Low [facility] GFR/1.73 sq M.predicted among blacks MDRD (S/P/Bld) [Vol rate/Area] 123 mL/min/{1.73_m2} ml/min/1.73sq .m [facility] GFR/1.73 sq M.predicted among non-blacks MDRD (S/P/Bld) [Vol rate/Area] 102 mL/min/{1.73_m2} ml/min/1.73sq .m [facility] Glucose post fast [Mass/Vol] 91 mg/dL [facility] Potassium [Moles/Vol] 3.8 mmol/L [facility] Sodium [Moles/Vol] 136 mmol/L Low [facility] Urea nitrogen [Mass/Vol] 9 mg/dL [facility] Laboratory - Hematology and Cell countson 01-20-2024 Basophils/100 WBC (Bld) 0.8 % 0.0 - 2.0 % [facility] Differential cell count method Nom (Bld) AUTO DIFF % [facility] Eosinophils (Bld) [#/Vol] 0.2 10*3/uL 0.0 - 0.7 10*3/uL [facility] Eosinophils/100 WBC (Bld) 3.0 % 0.0 - 11.0 % [facility] Erythrocyte distribution width (RBC) [Ratio] 14.0 % 11.5 - 14.5 % [facility] Hematocrit (Bld) [Volume fraction] 27.6 % Low 36.0 - 48.0 % [facility] Hemoglobin (Bld) [Mass/Vol] 9.4 g/dL Low [facility] Lymphocytes (Bld) [#/Vol] 1.2 10*3/uL 1.2 - 3.4 10*3/uL [facility] Lymphocytes/100 WBC (Bld) 19.6 % Low 20.0 - 55.0 % [facility] MCH (RBC) [Entitic mass] 32.3 pg 26.0 - 35.0 PG [facility] MCHC (RBC) [Mass/Vol] 34.0 g/dL [facility] MCV (RBC) [Entitic vol] 95.0 fL [facility] Monocytes (Bld) [#/Vol] 0.7 10*3/uL 0.0 - 0.7 10*3/uL [facility] Monocytes/100 WBC (Bld) 10.9 % High 0.0 - 10.0 % [facility] Neutrophils (Bld) [#/Vol] 4.1 10*3/uL 1.4 - 6.5 10*3/uL [facility] Neutrophils/100 WBC (Bld) 65.7 % 37.0 - 75.0 % [facility] Platelet mean volume (Bld) [Entitic vol] 6.9 fL Low [facility] Platelets (Bld) [#/Vol] 357 10*3/uL 130 - 400 10*3/uL [facility] RBC (Bld) [#/Vol] 2.90 10*6/uL Low 4.0 - 5.4 10*6/uL [facility] WBC (Bld) [#/Vol] 6.3 10*3/uL 3.6 - 11.0 10*3/uL [facility] No Panel Informationon 01-19 [facility] Interpretation and review of laboratory results Abnormal [facility] Transferrin Saturation (%) 20 % [facility] GFR COMMENT Average GFR for 70+ years old = 75. [facility] Interpretation and review of laboratory results Abnormal [facility] ABSOLUTE BASOPHIL COUNT 0.0 10*3/uL 0.0 - 0.2 10*3/uL [facility] Interpretation and review of laboratory results Abnormal [facility] PTH,INTACTon 01-20-2024 PTH,INTACT 40.2 pg/mL Normal 14.5-75.2 [facility] Comment on above: Performed By: #### A CBC #### [place] [address] Portable XR Chest Viewson RADIOLOGY RADIOLOGY [facility] Radiology Study observation (narrative) [facility] Portable XR Chest ViewsOrder ed By: Katina Carlisle on 01-20-2024 [facility] XR CHEST 1 VIEW PORTABLEon [...] markings which may well be chronic. Normal [facility] BASIC METABOLIC PANELon 07-0 Anion gap [Moles/Vol] 3 mmol/L MMOL/L [facility] Calcium [Mass/Vol] 8.4 mg/dL [facility] Chloride [Moles/Vol] 105 mmol/L [facility] Comment on above: Please note: Triglyc eride levels of 600mg/dL or higher may positively bias chloride results by approximately 2.1 mmol CO2 [Moles/Vol] 27 mmol/L [facility] Creatinine [Mass/Vol] 0.60 mg/dL Low [facility] GFR COMMENT Average GFR for 70+ years old = 75. [facility] Comment on above: Chronic Kidney disea se, GFR = <60. Kidney failure, GFR = <15. The GFR estimate is not adjusted for extreme body surface area or acute process, nor has it been validated for women or ethnic groups other than and . GFR/1.73 sq M.predicted among blacks MDRD (S/P/Bld) [Vol rate/Area] 123 mL/min/{1.73_m2} ml/min/1.73sq .m [facility] GFR/1.73 sq M.predicted among non-blacks MDRD (S/P/Bld) [Vol rate/Area] 102 mL/min/{1.73_m2} ml/min/1.73sq .m [facility] Glucose post fast [Mass/Vol] 119 mg/dL High [facility] Comment on above: NORMAL <100 mg/dL PREDIABETES 101-126 mg/dL DIABETES 126 mg/dL or higher Interpretation and review of laboratory results Abnormal [facility] Potassium [Moles/Vol] 3.5 mmol/L [facility] Sodium [Moles/Vol] 135 mmol/L Low [facility] Urea nitrogen [Mass/Vol] 10 mg/dL [facility] BMP FASTINGon 01-18-2024 Anion gap [Moles/Vol] 3 mmol/L Normal [facility] Comment on above: Performed By: #### U GRUPO, UMAC #### Testing performed at [address] [address] Calcium [Mass/Vol] 8.4 mg/dL Normal 8.4-10.2 [facility] Comment on above: Performed By: #### U GRUPO, UMAC #### Testing performed at [address] [address] Chloride [Moles/Vol] 105 mmol/L Normal 98-107 [facility] Comment on above: Result Comment: Shonda matthews note: Triglyceride levels of 600mg/dL or higher may positively bias chloride results by approximately 2.1 mmol Performed By: #### U GRUPO, UMAC #### Testing performed at [address] [address] CO2 [Moles/Vol] 27 mmol/L Normal 22-30 [facility] Comment on above: Performed By: #### U GRUPO, UMAC #### Testing performed at [address] [address] Creatinine [Mass/Vol] 0.60 mg/dL Low 0.70-1.20 [facility] Comment on above: Performed By: #### U GRUPO, UMAC #### Testing performed at [address] [address] EST. GFR, 123 ml/min/1.73sq.m [facility] Comment on above: Performed By: #### U GRUPO, UMAC #### Testing performed at [address] [address] EST. GFR,Non 102 ml/min/1.73sq.m [facility] Comment on above: Performed By: #### U GRUPO, UMAC #### Testing performed at [address] [address] GFR Information Average GFR for 70+ years old = 75. Normal [facility] Comment on above: Result Comment: Office Inspector aviva Kidney disease, GFR = <60. Kidney failure, GFR = <15. The GFR estimate is not adjusted for extreme body surface area or acute process, nor has it been validated for women or ethnic groups other than and . Performed By: #### U GRUPO, UMAC #### Testing performed at [address] [address] Glucose [Mass/Vol] 119 mg/dL High 70-100 [facility] Comment on above: Result Comment: NORMAL <100 mg/dL PREDIABETES 101-126 mg/dL DIABETES 126 mg/dL or higher Performed By: #### U GRUPO, UMAC #### Testing performed at [address] [address] Potassium [Moles/Vol] 3.5 mmol/L Normal 3.5-5.1 [facility] Comment on above: Performed By: #### U GRUPO, UMAC #### Testing performed at [address] [address] Sodium [Moles/Vol] 135 mmol/L Low 137-145 [facility] Comment on above: Performed By: #### U GRUPO, UMAC #### Testing performed at [address] [address] Urea nitrogen [Mass/Vol] 10 mg/dL Normal 7-20 [facility] Comment on above: Performed By: #### U GRUPO, UMAC #### Testing performed at [address] [address] CBCon 01-17-2024 ABSOLUTE BAS 0.0 10*3/uL Normal 0.0-0.2 [facility] Comment on above: Performed By: #### U GRUPO, UMAC #### Testing performed at [address] [address] ABSOLUTE EOS 0.1 10*3/uL Normal 0.0-0.7 [facility] Comment on above: Performed By: #### U GRUPO, UMAC #### Testing performed at [address] [address] ABSOLUTE NEUTROPHIL COUNT 4.7 10*3/uL Normal 1.4-6.5 [facility] Comment on above: Performed By: #### U GRUPO, UMAC #### Testing performed at [address] [address] Basophils/100 WBC (Bld) 0.6 % Normal 0.0-2.0 [facility] Comment on above: Performed By: #### U GRUPO, UMAC #### Testing performed at [address] [address] DTYPE AUTO DIFF Normal [facility] Comment on above: Performed By: #### U GRUPO, UMAC #### Testing performed at [address] [address] Eosinophils/100 WBC (Bld) 1.9 % Normal 0.0-11.0 [facility] Comment on above: Performed By: #### U GRUPO, UMAC #### Testing performed at [address] [address] Erythrocyte distribution width (RBC) [Ratio] 13.9 % Normal 11.5-14.5 [facility] Comment on above: Performed By: #### U GRUPO, UMAC #### Testing performed at [address] [address] Hematocrit (Bld) [Volume fraction] 29.2 % Low 36.0-48.0 [facility] Comment on above: Performed By: #### U GRUPO, UMAC #### Testing performed at [address] [address] Hemoglobin (Bld) [Mass/Vol] 9.8 g/dL Low 12.0-16.0 [facility] Comment on above: Performed By: #### U GRUPO, UMAC #### Testing performed at [address] [address] Lymphocytes (Bld) [#/Vol] 1.1 10*3/uL Low 1.2-3.4 [facility] Comment on above: Performed By: #### U GRUPO, UMAC #### Testing performed at [address] [address] Lymphocytes/100 WBC (Bld) 16.5 % Low 20.0-55.0 [facility] Comment on above: Performed By: #### U GRUPO, UMAC #### Testing performed at [address] [address] MCH (RBC) [Entitic mass] 31.8 pg Normal 26.0-35.0 [facility] Comment on above: Performed By: #### U GRUPO, UMAC #### Testing performed at [address] [address] MCHC (RBC) [Mass/Vol] 33.6 g/dL Normal 27.0-37.0 [facility] Comment on above: Performed By: #### U GRUPO, UMAC #### Testing performed at [address] [address] MCV (RBC) [Entitic vol] 94.6 fL Normal 80.0-100.0 [facility] Comment on above: Performed By: #### U GRUPO, UMAC #### Testing performed at [address] [address] Monocytes (Bld) [#/Vol] 0.8 10*3/uL High 0.0-0.7 [facility] Comment on above: Performed By: #### U GRUPO, UMAC #### Testing performed at [address] [address] Monocytes/100 WBC (Bld) 11.9 % High 0.0-10.0 [facility] Comment on above: Performed By: #### U GRUPO, UMAC #### Testing performed at [address] [address] Neutrophils/100 WBC (Bld) 69.1 % Normal 37.0-75.0 [facility] Comment on above: Performed By: #### U GRUPO, UMAC #### Testing performed at [address] [address] Platelet mean volume (Bld) [Entitic vol] 7.9 fL Normal 7.4-11.0 [facility] Comment on above: Performed By: #### U GRUPO, UMAC #### Testing performed at [address] [address] Platelets (Bld) [#/Vol] 279 10*3/uL Normal 130-400 [facility] Comment on above: Performed By: #### U GRUPO, UMAC #### Testing performed at [address] [address] RBC (Bld) [#/Vol] 3.09 10*6/uL Low 4.0-5.4 [facility] Comment on above: Performed By: #### U GRUPO, UMAC #### Testing performed at [address] [address] WBC (Bld) [#/Vol] 6.8 10*3/uL Normal 3.6-11.0 [facility] Comment on above: Performed By: #### U GRUPO, UMAC #### Testing performed at [address] [address] CBC, EDIF, PLATELETon 2023 ABSOLUTE BASOPHIL COUNT 0.0 10*3/uL 0.0 - 0.2 10*3/uL [facility] Basophils/100 WBC (Bld) 0.6 % 0.0 - 2.0 % [facility] Differential cell count method Nom (Bld) AUTO DIFF % [facility] Eosinophils (Bld) [#/Vol] 0.1 10*3/uL 0.0 - 0.7 10*3/uL [facility] Eosinophils/100 WBC (Bld) 1.9 % 0.0 - 11.0 % [facility] Erythrocyte distribution width (RBC) [Ratio] 13.9 % 11.5 - 14.5 % [facility] Hematocrit (Bld) [Volume fraction] 29.2 % Low 36.0 - 48.0 % [facility] Hemoglobin (Bld) [Mass/Vol] 9.8 g/dL Low [facility] Interpretation and review of laboratory results Abnormal [facility] Lymphocytes (Bld) [#/Vol] 1.1 10*3/uL Low 1.2 - 3.4 10*3/uL [facility] Lymphocytes/100 WBC (Bld) 16.5 % Low 20.0 - 55.0 % [facility] MCH (RBC) [Entitic mass] 31.8 pg 26.0 - 35.0 PG [facility] MCHC (RBC) [Mass/Vol] 33.6 g/dL [facility] MCV (RBC) [Entitic vol] 94.6 fL [facility] Monocytes (Bld) [#/Vol] 0.8 10*3/uL High 0.0 - 0.7 10*3/uL [facility] Monocytes/100 WBC (Bld) 11.9 % High 0.0 - 10.0 % [facility] Neutrophils (Bld) [#/Vol] 4.7 10*3/uL 1.4 - 6.5 10*3/uL [facility] Neutrophils/100 WBC (Bld) 69.1 % 37.0 - 75.0 % [facility] Platelet mean volume (Bld) [Entitic vol] 7.9 fL [facility] Platelets (Bld) [#/Vol] 279 10*3/uL 130 - 400 10*3/uL [facility] RBC (Bld) [#/Vol] 3.09 10*6/uL Low 4.0 - 5.4 10*6/uL [facility] WBC (Bld) [#/Vol] 6.8 10*3/uL 3.6 - 11.0 10*3/uL [facility] RENAL FUNCTION PANELon 01-16 Albumin [Mass/Vol] 2.6 G/dl Low 3.5 - 5.0 G/dl [facility] Calcium [Mass/Vol] 8.2 mg/dL Low [facility] Chloride [Moles/Vol] 105 mmol/L [facility] Comment on above: Please note: Triglyc eride levels of 600mg/dL or higher may positively bias chloride results by approximately 2.1 mmol CO2 [Moles/Vol] 29 mmol/L [facility] Creatinine [Mass/Vol] 0.51 mg/dL Low [facility] GFR COMMENT Average GFR for 70+ years old = 75. [facility] Comment on above: Chronic Kidney disea se, GFR = <60. Kidney failure, GFR = <15. The GFR estimate is not adjusted for extreme body surface area or acute process, nor has it been validated for women or ethnic groups other than and . GFR/1.73 sq M.predicted among blacks MDRD (S/P/Bld) [Vol rate/Area] 149 mL/min/{1.73_m2} ml/min/1.73sq .m [facility] GFR/1.73 sq M.predicted among non-blacks MDRD (S/P/Bld) [Vol rate/Area] 123 mL/min/{1.73_m2} ml/min/1.73sq .m [facility] Glucose post fast [Mass/Vol] 106 mg/dL High [facility] Comment on above: NORMAL <100 mg/dL PREDIABETES 101-126 mg/dL DIABETES 126 mg/dL or higher Interpretation and review of laboratory results Abnormal [facility] Phosphate [Mass/Vol] 2.6 mg/dL [facility] Potassium [Moles/Vol] 3.3 mmol/L Low [facility] Sodium [Moles/Vol] 135 mmol/L Low [facility] Urea nitrogen [Mass/Vol] 10 mg/dL [facility] RENAL PANEL,FASTINGon 2023 ALBUMIN 2.6 G/dl Low 3.5-5.0 [facility] Comment on above: Performed By: #### U GRUPO, UMAC #### Testing performed at [address] [address] Calcium [Mass/Vol] 8.2 mg/dL Low 8.4-10.2 [facility] Comment on above: Performed By: #### U GRUPO, UMAC #### Testing performed at [address] [address] Chloride [Moles/Vol] 105 mmol/L Normal 98-107 [facility] Comment on above: Result Comment: Shonda matthews note: Triglyceride levels of 600mg/dL or higher may positively bias chloride results by approximately 2.1 mmol Performed By: #### U GRUPO, UMAC #### Testing performed at [address] [address] CO2 [Moles/Vol] 29 mmol/L Normal 22-30 [facility] Comment on above: Performed By: #### U GRUPO, UMAC #### Testing performed at [address] [address] Creatinine [Mass/Vol] 0.51 mg/dL Low 0.70-1.20 [facility] Comment on above: Performed By: #### U GRUPO, UMAC #### Testing performed at [address] [address] EST. GFR, 149 ml/min/1.73sq.m [facility] Comment on above: Performed By: #### U GRUPO, UMAC #### Testing performed at [address] [address] EST. GFR,Non 123 ml/min/1.73sq.m [facility] Comment on above: Performed By: #### U GRUPO, UMAC #### Testing performed at [address] [address] GFR Information Average GFR for 70+ years old = 75. Normal [facility] Comment on above: Result Comment: Office Inspector aviva Kidney disease, GFR = <60. Kidney failure, GFR = <15. The GFR estimate is not adjusted for extreme body surface area or acute process, nor has it been validated for women or ethnic groups other than and . Performed By: #### U GRUPO, UMAC #### Testing performed at [address] [address] Glucose [Mass/Vol] 106 mg/dL High 70-100 [facility] Comment on above: Result Comment: NORMAL <100 mg/dL PREDIABETES 101-126 mg/dL DIABETES 126 mg/dL or higher Performed By: #### U GRUPO, UMAC #### Testing performed at [address] [address] PHOSPHOROUS 2.6 MG/DL Normal 2.5-4.5 [facility] Comment on above: Performed By: #### U GRUPO, UMAC #### Testing performed at [address] [address] Potassium [Moles/Vol] 3.3 mmol/L Low 3.5-5.1 [facility] Comment on above: Performed By: #### U GRUPO, UMAC #### Testing performed at [address] [address] Sodium [Moles/Vol] 135 mmol/L Low 137-145 [facility] Comment on above: Performed By: #### U GRUPO, UMAC #### Testing performed at [address] [address] Urea nitrogen [Mass/Vol] 10 mg/dL Normal 7-20 [facility] Comment on above: Performed By: #### U [facility] #### Testing performed at [address] [address] SURGICAL PATHOLOGY REQUESTon 01-17-2024 Pathology report final diagnosis Narrative Surgical Final Report Patient Name: CUATE GOODMAN Med. Rec. #: [id number] Physician: ERIK HEREDIA Specimen(s) Received Left femoral [...] articular cartilage degeneration. Sectioning reveals unremarkable bone. Cinder Block Mason sections are submitted in one cassette and placed in decalcification solution prior to processing. Billing Fee Code(s) A: 96843, [address] [facility] XR FOOT RIGHT 2 VIEWSon XR FOOT [...] and hallux valgus with osseous demineralization. Normal [facility] XR Foot - right 2 Viewson [...] DJD and hallux valgus with osseous demineralization. [facility] Radiology Study observation (narrative) [facility] XR Foot - right 2 ViewsOrder ed By: Miguel Marin on 01-17-2024 [facility] Work Phone: CBCon 01-14-2024 ABSOLUTE BAS 0.0 10*3/uL Normal 0.0-0.2 [facility] Comment on above: Performed By: #### U GRUPO, [facility] #### Testing performed at [facility] [address] [place] [address] ABSOLUTE EOS 0.1 10*3/uL Normal 0.0-0.7 [facility] Comment on above: Performed By: #### U GRUPO, [facility] #### Testing performed at [address] [place] [address] ABSOLUTE NEUTROPHIL COUNT 7.6 10*3/uL High 1.4-6.5 [facility] Comment on above: Performed By: #### U GRUPO, [facility] #### Testing performed at [address] [place] [address] Basophils/100 WBC (Bld) 0.3 % Normal 0.0-2.0 [facility] Comment on above: Performed By: #### U GRUPO, [facility] #### Testing performed at [address] [place] [address] DTYPE AUTO DIFF Normal [facility] Comment on above: Performed By: #### U GRUPO, [facility] #### Testing performed at [address] [address] Eosinophils/100 WBC (Bld) 0.5 % Normal 0.0-11.0 [facility] Comment on above: Performed By: #### U GRUPO, [facility] #### Testing performed at [address] [address] Lymphocytes (Bld) [#/Vol] 1.1 10*3/uL Low 1.2-3.4 [facility] Comment on above: Performed By: #### U GRUPO, [facility] #### Testing performed at [address] [place] [address] Lymphocytes/100 WBC (Bld) 11.0 % Low 20.0-55.0 [facility] Comment on above: Performed By: #### U GRUPO, [facility] #### Testing performed at [address] [place] [address] Monocytes (Bld) [#/Vol] 1.1 10*3/uL High 0.0-0.7 [facility] Comment on above: Performed By: #### U GRUPO, [facility] #### Testing performed at [address] [place] [address] Monocytes/100 WBC (Bld) 10.8 % High 0.0-10.0 [facility] Comment on above: Performed By: #### U GR[facility]PO, [facility] #### Testing performed at [address] [address] Neutrophils/100 WBC (Bld) 77.4 % High 37.0-75.0 [facility] Comment on above: Performed By: #### U GRUPO, [facility] #### Testing performed at [address] [address] Erythrocyte distribution width (RBC) [Ratio] 14.6 % High 11.5-14.5 [facility] Comment on above: Performed By: #### U GRUPO, [facility] #### Testing performed at [address] [address] Hematocrit (Bld) [Volume fraction] 32.1 % Low 36.0-48.0 [facility] Comment on above: Performed By: #### U GR[facility], [facility] #### Testing performed at [address] [address] Hemoglobin (Bld) [Mass/Vol] 10.5 g/dL Low 12.0-16.0 [facility] Comment on above: Performed By: #### U GRUPO, [facility] #### Testing performed at [address] [address] MCH (RBC) [Entitic mass] 31.4 pg Normal 26.0-35.0 [facility] Comment on above: Performed By: #### U GRUPO, [facility] #### Testing performed at [address] [address] MCHC (RBC) [Mass/Vol] 32.8 g/dL Normal 27.0-37.0 [facility] Comment on above: Performed By: #### U GRUPO, [facility] #### Testing performed at [address] [address] MCV (RBC) [Entitic vol] 96.0 fL Normal 80.0-100.0 [facility] Comment on above: Performed By: #### U GRUPO, [facility] #### Testing performed at [address] [address] Platelet mean volume (Bld) [Entitic vol] 8.4 fL Normal 7.4-11.0 [facility] Comment on above: Performed By: #### U GRUPO, [facility] #### Testing performed at [address] [address] Platelets (Bld) [#/Vol] 226 10*3/uL Normal 130-400 [facility] Comment on above: Performed By: #### U GRUPO, [facility] #### Testing performed at [address] [address] RBC (Bld) [#/Vol] 3.35 10*6/uL Low 4.0-5.4 [facility] Comment on above: Performed By: #### U GRUPO, [facility] #### Testing performed at [address] [address] WBC (Bld) [#/Vol] 9.9 10*3/uL Normal 3.6-11.0 [facility] Comment on above: Performed By: #### U GRUPO, [facility] #### Testing performed at [address] [address] CBC, EDIF, PLATELETon 2023 ABSOLUTE BASOPHIL COUNT 0.0 10*3/uL 0.0 - 0.2 10*3/uL [facility] Basophils/100 WBC (Bld) 0.3 % 0.0 - 2.0 % [facility] Differential cell count method Nom (Bld) AUTO DIFF % [facility] Eosinophils (Bld) [#/Vol] 0.1 10*3/uL 0.0 - 0.7 10*3/uL [facility] Eosinophils/100 WBC (Bld) 0.5 % 0.0 - 11.0 % [facility] Erythrocyte distribution width (RBC) [Ratio] 14.6 % High 11.5 - 14.5 % [facility] Hematocrit (Bld) [Volume fraction] 32.1 % Low 36.0 - 48.0 % [facility] Hemoglobin (Bld) [Mass/Vol] 10.5 g/dL Low [facility] Interpretation and review of laboratory results Abnormal [facility] Lymphocytes (Bld) [#/Vol] 1.1 10*3/uL Low 1.2 - 3.4 10*3/uL [facility] Lymphocytes/100 WBC (Bld) 11.0 % Low 20.0 - 55.0 % [facility] MCH (RBC) [Entitic mass] 31.4 pg 26.0 - 35.0 PG [facility] MCHC (RBC) [Mass/Vol] 32.8 g/dL [facility] MCV (RBC) [Entitic vol] 96.0 fL [facility] Monocytes (Bld) [#/Vol] 1.1 10*3/uL High 0.0 - 0.7 10*3/uL [facility] Monocytes/100 WBC (Bld) 10.8 % High 0.0 - 10.0 % [facility] Neutrophils (Bld) [#/Vol] 7.6 10*3/uL High 1.4 - 6.5 10*3/uL [facility] Neutrophils/100 WBC (Bld) 77.4 % High 37.0 - 75.0 % [facility] Platelet mean volume (Bld) [Entitic vol] 8.4 fL [facility] Platelets (Bld) [#/Vol] 226 10*3/uL 130 - 400 10*3/uL [facility] RBC (Bld) [#/Vol] 3.35 10*6/uL Low 4.0 - 5.4 10*6/uL [facility] WBC (Bld) [#/Vol] 9.9 10*3/uL 3.6 - 11.0 10*3/uL [facility] BASIC METABOLIC PANELon - Anion gap [Moles/Vol] 4 mmol/L MMOL/L [facility] Calcium [Mass/Vol] 9.0 mg/dL [facility] Chloride [Moles/Vol] 107 mmol/L [facility] Comment on above: Please note: Triglyc eride levels of 600mg/dL or higher may positively bias chloride results by approximately 2.1 mmol CO2 [Moles/Vol] 26 mmol/L [facility] Creatinine [Mass/Vol] 0.70 mg/dL [facility] GFR COMMENT Average GFR for 70+ years old = 75. [facility] Comment on above: Chronic Kidney disea se, GFR = <60. Kidney failure, GFR = <15. The GFR estimate is not adjusted for extreme body surface area or acute process, nor has it been validated for women or ethnic groups other than and . GFR/1.73 sq M.predicted among blacks MDRD (S/P/Bld) [Vol rate/Area] 103 mL/min/{1.73_m2} ml/min/1.73sq .m [facility] GFR/1.73 sq M.predicted among non-blacks MDRD (S/P/Bld) [Vol rate/Area] 85 mL/min/{1.73_m2} ml/min/1.73sq .m [facility] Glucose post fast [Mass/Vol] 164 mg/dL High [facility] Comment on above: NORMAL <100 mg/dL PREDIABETES 101-126 mg/dL DIABETES 126 mg/dL or higher Interpretation and review of laboratory results Abnormal [facility] Potassium [Moles/Vol] 4.2 mmol/L [facility] Sodium [Moles/Vol] 137 mmol/L [facility] Urea nitrogen [Mass/Vol] 19 mg/dL [facility] BMP FASTINGon 01-13-2024 Anion gap [Moles/Vol] 4 mmol/L Normal [facility] Comment on above: Performed By: #### A CBC, BMPF #### Testing performed at [address] [address] Calcium [Mass/Vol] 9.0 mg/dL Normal 8.4-10.2 [facility] Comment on above: Performed By: #### A CBC, BMPF #### Testing performed at [address] [address] Chloride [Moles/Vol] 107 mmol/L Normal 98-107 [facility] Comment on above: Result Comment: Shonda matthews note: Triglyceride levels of 600mg/dL or higher may positively bias chloride results by approximately 2.1 mmol Performed By: #### A CBC, BMPF #### Testing performed at [address] [address] CO2 [Moles/Vol] 26 mmol/L Normal 22-30 [facility] Comment on above: Performed By: #### A CBC, BMPF #### Testing performed at [address] [address] Creatinine [Mass/Vol] 0.70 mg/dL Normal 0.70-1.20 [facility] Comment on above: Performed By: #### A CBC, BMPF #### Testing performed at [address] [address] EST. GFR, 103 ml/min/1.73sq.m [facility] Comment on above: Performed By: #### A CBC, BMPF #### Testing performed at [address] [address] EST. GFR,Non 85 ml/min/1.73sq.m [facility] Comment on above: Performed By: #### A CBC, BMPF #### Testing performed at [address] [address] GFR Information Average GFR for 70+ years old = 75. [facility] Comment on above: Result Comment: Office Inspector aviva Kidney disease, GFR = <60. Kidney failure, GFR = <15. The GFR estimate is not adjusted for extreme body surface area or acute process, nor has it been validated for women or ethnic groups other than and . Performed By: #### A CBC, BMPF #### Testing performed at [address] [address] Glucose [Mass/Vol] 164 mg/dL High 70-100 [facility] Comment on above: Result Comment: NORMAL <100 mg/dL PREDIABETES 101-126 mg/dL DIABETES 126 mg/dL or higher Performed By: #### A CBC, BMPF #### Testing performed at [address] [address] Potassium [Moles/Vol] 4.2 mmol/L Normal 3.5-5.1 [facility] Comment on above: Performed By: #### A CBC, BMPF #### Testing performed at [address] [address] Sodium [Moles/Vol] 137 mmol/L Normal 137-145 [facility] Comment on above: Performed By: #### A CBC, BMPF #### Testing performed at [address] [address] Urea nitrogen [Mass/Vol] 19 mg/dL Normal 7-20 [facility] Comment on above: Performed By: #### A CBC, BMPF #### Testing performed at [address] [place] [address] CBCon 01-13-2024 ABSOLUTE BAS 0.0 10*3/uL Normal 0.0-0.2 [facility] Comment on above: Performed By: #### A CBC, BMPF #### Testing performed at [address] [place] [address] ABSOLUTE EOS 0.0 10*3/uL Normal 0.0-0.7 [facility] Comment on above: Performed By: #### A CBC, BMPF #### Testing performed at [address] [place] [address] ABSOLUTE NEUTROPHIL COUNT 8.6 10*3/uL High 1.4-6.5 [facility] Comment on above: Performed By: #### A CBC, BMPF #### Testing performed at [address] [place] [address] Basophils/100 WBC (Bld) 0.0 % Normal 0.0-2.0 [facility] Comment on above: Performed By: #### A CBC, BMPF #### Testing performed at [address] [place] [address] DTYPE AUTO DIFF Normal [facility] Comment on above: Performed By: #### A CBC, BMPF #### Testing performed at [address] [place] [address] Eosinophils/100 WBC (Bld) 0.0 % Normal 0.0-11.0 [facility] Comment on above: Performed By: #### A CBC, BMPF #### Testing performed at [address] [place] [address] Lymphocytes (Bld) [#/Vol] 0.6 10*3/uL Low 1.2-3.4 [facility] Comment on above: Performed By: #### A CBC, BMPF #### Testing performed at [address] [place] [address] Lymphocytes/100 WBC (Bld) 5.9 % Low 20.0-55.0 [facility] Comment on above: Performed By: #### A CBC, BMPF #### Testing performed at [address] [place] [address] Monocytes (Bld) [#/Vol] 0.8 10*3/uL High 0.0-0.7 [facility] Comment on above: Performed By: #### A CBC, BMPF #### Testing performed at [address] [address] Monocytes/100 WBC (Bld) 8.3 % Normal 0.0-10.0 [facility] Comment on above: Performed By: #### A CBC, BMPF #### Testing performed at [address] [address] Neutrophils/100 WBC (Bld) 85.8 % High 37.0-75.0 [facility] Comment on above: Performed By: #### A CBC, BMPF #### Testing performed at [address] [address] Erythrocyte distribution width (RBC) [Ratio] 14.5 % Normal 11.5-14.5 [facility] Comment on above: Performed By: #### A CBC, BMPF #### Testing performed at [address] [address] Hematocrit (Bld) [Volume fraction] 31.8 % Low 36.0-48.0 [facility] Comment on above: Performed By: #### A CBC, BMPF #### Testing performed at [address] [address] Hemoglobin (Bld) [Mass/Vol] 10.6 g/dL Low 12.0-16.0 [facility] Comment on above: Performed By: #### A CBC, BMPF #### Testing performed at [address] [address] MCH (RBC) [Entitic mass] 31.9 pg Normal 26.0-35.0 [facility] Comment on above: Performed By: #### A CBC, BMPF #### Testing performed at [address] [address] MCHC (RBC) [Mass/Vol] 33.2 g/dL Normal 27.0-37.0 [facility] Comment on above: Performed By: #### A CBC, BMPF #### Testing performed at [address] [place] [address] MCV (RBC) [Entitic vol] 95.9 fL Normal 80.0-100.0 [facility] Comment on above: Performed By: #### A CBC, BMPF #### Testing performed at [address] [address] Platelet mean volume (Bld) [Entitic vol] 8.1 fL Normal 7.4-11.0 [facility] Comment on above: Performed By: #### A CBC, BMPF #### Testing performed at [address] [address] Platelets (Bld) [#/Vol] 228 10*3/uL Normal 130-400 [facility] Comment on above: Performed By: #### A CBC, BMPF #### Testing performed at [address] [address] RBC (Bld) [#/Vol] 3.31 10*6/uL Low 4.0-5.4 [facility] Comment on above: Performed By: #### A CBC, BMPF #### Testing performed at [address] [address] WBC (Bld) [#/Vol] 10.0 10*3/uL Normal 3.6-11.0 [facility] Comment on above: Performed By: #### A CBC, BMPF #### Testing performed at [address] [address] CBC, EDIF, PLATELETon 2023 ABSOLUTE BASOPHIL COUNT 0.0 10*3/uL 0.0 - 0.2 10*3/uL [facility] Basophils/100 WBC (Bld) 0.0 % 0.0 - 2.0 % [facility] Differential cell count method Nom (Bld) AUTO DIFF % [facility] Eosinophils (Bld) [#/Vol] 0.0 10*3/uL 0.0 - 0.7 10*3/uL [facility] Eosinophils/100 WBC (Bld) 0.0 % 0.0 - 11.0 % [facility] Erythrocyte distribution width (RBC) [Ratio] 14.5 % 11.5 - 14.5 % [facility] Hematocrit (Bld) [Volume fraction] 31.8 % Low 36.0 - 48.0 % [facility] Hemoglobin (Bld) [Mass/Vol] 10.6 g/dL Low [facility] Interpretation and review of laboratory results Abnormal [facility] Lymphocytes (Bld) [#/Vol] 0.6 10*3/uL Low 1.2 - 3.4 10*3/uL [facility] Lymphocytes/100 WBC (Bld) 5.9 % Low 20.0 - 55.0 % [facility] MCH (RBC) [Entitic mass] 31.9 pg 26.0 - 35.0 PG [facility] MCHC (RBC) [Mass/Vol] 33.2 g/dL [facility] MCV (RBC) [Entitic vol] 95.9 fL [facility] Monocytes (Bld) [#/Vol] 0.8 10*3/uL High 0.0 - 0.7 10*3/uL [facility] Monocytes/100 WBC (Bld) 8.3 % 0.0 - 10.0 % [facility] Neutrophils (Bld) [#/Vol] 8.6 10*3/uL High 1.4 - 6.5 10*3/uL [facility] Neutrophils/100 WBC (Bld) 85.8 % High 37.0 - 75.0 % [facility] Platelet mean volume (Bld) [Entitic vol] 8.1 fL [facility] Platelets (Bld) [#/Vol] 228 10*3/uL 130 - 400 10*3/uL [facility] RBC (Bld) [#/Vol] 3.31 10*6/uL Low 4.0 - 5.4 10*6/uL [facility] WBC (Bld) [#/Vol] 10.0 10*3/uL 3.6 - 11.0 10*3/uL [facility] ECGOrdered By: Thom estevez on 01-13-2024 [facility] Work Phone: TROPONIN I, HIGH SENSITIVITY on 01-13-2024 Interpretation and review of laboratory results Abnormal [facility] TROPONIN I, HIGH SENSITIVITY 14 pg/mL High 0 - 12 pg/mL [facility] Comment on above: Indeterminant: >12 to 100 pg/mL female >20 to 100 pg/mL male Indicative of myocardial injury. Serial sampling is recommended, a change of greater than or equal to 20 pg/mL is indicative of acute coronary syndrome. [facility] TROPONIN I, HIGH SENSITIVITY 14 pg/mL High 0-12 [facility] Comment on above: Result Comment: Indeterminant: >12 to 100 pg/mL female >20 to 100 pg/mL male Indicative of myocardial injury. Serial sampling is recommended, a change of greater than or equal to 20 pg/mL is indicative of acute coronary syndrome. Performed By: #### U GRUPO, UMAC #### Testing performed at [address] [address] TROPONIN I, HIGH SENSITIVITY 10 pg/mL 0 - 12 pg/mL [facility] Comment on above: Indeterminant: >12 to 100 pg/mL female >20 to 100 pg/mL male Indicative of myocardial injury. Serial sampling is recommended, a change of greater than or equal to 20 pg/mL is indicative of acute coronary syndrome. [facility] TROPONIN I, HIGH SENSITIVITY 10 pg/mL Normal [address] [place] [address] Comment on above: Result Comment: Indeterminant: >12 to 100 pg/mL female >20 to 100 pg/mL male Indicative of myocardial injury. Serial sampling is recommended, a change of greater than or equal to 20 pg/mL is indicative of acute coronary syndrome. Performed By: #### T [facility] #### Testing performed at [address] [address] TROPONIN I, HIGH SENSITIVITY 9 pg/mL 0 - 12 pg/mL [facility] Comment on above: Indeterminant: >12 to 100 pg/mL female >20 to 100 pg/mL male Indicative of myocardial injury. Serial sampling is recommended, a change of greater than or equal to 20 pg/mL is indicative of acute coronary syndrome. [facility] TROPONIN I, HIGH SENSITIVITY 9 pg/mL Normal 0-12 [facility] Comment on above: Result Comment: Indeterminant: >12 to 100 pg/mL female >20 to 100 pg/mL male Indicative of myocardial injury. Serial sampling is recommended, a change of greater than or equal to 20 pg/mL is indicative of acute coronary syndrome. Performed By: #### U GRUPO, UMAC #### Testing performed at [address] [place] [address] XR PELVIS 1-2 VIEWSon 2023 XR PELVIS [...] Postsurgical findings of left hip arthroplasty. Normal [facility] XR Pelvis 2 Viewson 01-13-20 IMPRESSION: [...] IMPRESSION: Postsurgical findings of left hip arthroplasty. [facility] XR Pelvis 2 ViewsOrdered By: Eyad Aldridge on 01-13-2024 [facility] Work Phone: BASIC METABOLIC PANELon 12-18 Anion gap [Moles/Vol] 9 mmol/L MMOL/L [facility] Calcium [Mass/Vol] 9.1 mg/dL [facility] Chloride [Moles/Vol] 105 mmol/L [facility] Comment on above: Please note: Triglyc eride levels of 600mg/dL or higher may positively bias chloride results by approximately 2.1 mmol CO2 [Moles/Vol] 24 mmol/L [facility] Creatinine [Mass/Vol] 0.70 mg/dL [facility] GFR COMMENT Average GFR for 70+ years old = 75. [facility] Comment on above: Chronic Kidney disea se, GFR = <60. Kidney failure, GFR = <15. The GFR estimate is not adjusted for extreme body surface area or acute process, nor has it been validated for women or ethnic groups other than and . GFR/1.73 sq M.predicted among blacks MDRD (S/P/Bld) [Vol rate/Area] 103 mL/min/{1.73_m2} ml/min/1.73sq .m [facility] GFR/1.73 sq M.predicted among non-blacks MDRD (S/P/Bld) [Vol rate/Area] 85 mL/min/{1.73_m2} ml/min/1.73sq .m [facility] Glucose post fast [Mass/Vol] 179 mg/dL High [facility] Comment on above: NORMAL <100 mg/dL PREDIABETES 101-126 mg/dL DIABETES 126 mg/dL or higher Interpretation and review of laboratory results Abnormal [facility] Potassium [Moles/Vol] 4.0 mmol/L [facility] Sodium [Moles/Vol] 138 mmol/L [facility] Urea nitrogen [Mass/Vol] 16 mg/dL [facility] BMP FASTINGon 01-12-2024 Anion gap [Moles/Vol] 9 mmol/L Normal [facility] Comment on above: Performed By: #### U GRUPO, UMAC #### Testing performed at [address] [address] Calcium [Mass/Vol] 9.1 mg/dL Normal 8.4-10.2 [facility] Comment on above: Performed By: #### U GRUPO, UMAC #### Testing performed at [address] [address] Chloride [Moles/Vol] 105 mmol/L Normal 98-107 [facility] Comment on above: Result Comment: Plea se note: Triglyceride levels of 600mg/dL or higher may positively bias chloride results by approximately 2.1 mmol Performed By: #### U GRUPO, UMAC #### Testing performed at [address] [address] CO2 [Moles/Vol] 24 mmol/L Normal 22-30 [facility] Comment on above: Performed By: #### U GRUPO, UMAC #### Testing performed at [address] [address] Creatinine [Mass/Vol] 0.70 mg/dL Normal 0.70-1.20 [facility] Comment on above: Performed By: #### U GRUPO, UMAC #### Testing performed at [address] [address] EST. GFR, 103 ml/min/1.73sq.m [facility] Comment on above: Performed By: #### U GRUPO, UMAC #### Testing performed at [address] [address] EST. GFR,Non 85 ml/min/1.73sq.m [facility] Comment on above: Performed By: #### U GRUPO, UMAC #### Testing performed at [address] [address] GFR Information Average GFR for 70+ years old = 75. Normal [facility] Comment on above: Result Comment: Office Inspector aviva Kidney disease, GFR = <60. Kidney failure, GFR = <15. The GFR estimate is not adjusted for extreme body surface area or acute process, nor has it been validated for women or ethnic groups other than and . Performed By: #### U GRUPO, UMAC #### Testing performed at [address] [address] Glucose [Mass/Vol] 179 mg/dL High 70-100 [facility] Comment on above: Result Comment: NORMAL <100 mg/dL PREDIABETES 101-126 mg/dL DIABETES 126 mg/dL or higher Performed By: #### U GRUPO, UMAC #### Testing performed at [address] [address] Potassium [Moles/Vol] 4.0 mmol/L Normal 3.5-5.1 [facility] Comment on above: Performed By: #### U GRUPO, UMAC #### Testing performed at [address] [address] Sodium [Moles/Vol] 138 mmol/L Normal 137-145 [facility] Comment on above: Performed By: #### U GRUPO, UMAC #### Testing performed at [address] [address] Urea nitrogen [Mass/Vol] 16 mg/dL Normal 7-20 [facility] Comment on above: Performed By: #### [facility], [facility] #### Testing performed at [address] [address] CBCon 01-12-2024 ABSOLUTE BAS 0.0 10*3/uL Normal 0.0-0.2 [facility] Comment on above: Performed By: #### [facility], [facility] #### Testing performed at [address] [address] ABSOLUTE EOS 0.0 10*3/uL Normal 0.0-0.7 [facility] Comment on above: Performed By: #### [facility], [facility] #### Testing performed at [address] [address] ABSOLUTE NEUTROPHIL COUNT 9.4 10*3/uL High 1.4-6.5 [facility] Comment on above: Performed By: #### [facility], [facility] #### Testing performed at [address] [address] Basophils/100 WBC (Bld) 0.1 % Normal 0.0-2.0 [facility] Comment on above: Performed By: #### [facility], [facility] #### Testing performed at [address] [address] DTYPE AUTO DIFF Normal [facility] Comment on above: Performed By: #### [facility], [facility] #### Testing performed at [address] [address] Eosinophils/100 WBC (Bld) 0.0 % Normal 0.0-11.0 [facility] Comment on above: Performed By: #### [facility], [facility] #### Testing performed at [address] [address] Lymphocytes (Bld) [#/Vol] 0.6 10*3/uL Low 1.2-3.4 [facility] Comment on above: Performed By: #### [facility], [facility] #### Testing performed at [address] [address] Lymphocytes/100 WBC (Bld) 5.9 % Low 20.0-55.0 [facility] Comment on above: Performed By: #### [facility], [facility] #### Testing performed at [address] [address] Monocytes (Bld) [#/Vol] 0.5 10*3/uL Normal 0.0-0.7 [facility] Comment on above: Performed By: #### [facility], [facility] #### Testing performed at [address] [address] Monocytes/100 WBC (Bld) 4.5 % Normal 0.0-10.0 [facility] Comment on above: Performed By: #### [facility], [facility] #### Testing performed at [address] [address] Neutrophils/100 WBC (Bld) 89.5 % High 37.0-75.0 [facility] Comment on above: Performed By: #### [facility], [facility] #### Testing performed at [address] [address] Erythrocyte distribution width (RBC) [Ratio] 14.3 % Normal 11.5-14.5 [facility] Comment on above: Performed By: #### [facility], [facility] #### Testing performed at [address] [address] Hematocrit (Bld) [Volume fraction] 33.3 % Low 36.0-48.0 [facility] Comment on above: Performed By: #### [facility], [facility] #### Testing performed at [address] [address] Hemoglobin (Bld) [Mass/Vol] 10.9 g/dL Low 12.0-16.0 [facility] Comment on above: Performed By: #### [facility], [facility] #### Testing performed at [address] [address] MCH (RBC) [Entitic mass] 31.4 pg Normal 26.0-35.0 [facility] Comment on above: Performed By: #### [facility], [facility] #### Testing performed at [address] [address] MCHC (RBC) [Mass/Vol] 32.8 g/dL Normal 27.0-37.0 [facility] Comment on above: Performed By: #### [facility], [facility] #### Testing performed at [address] [address] MCV (RBC) [Entitic vol] 95.7 fL Normal 80.0-100.0 [facility] Comment on above: Performed By: #### [facility], [facility] #### Testing performed at [address] [address] Platelet mean volume (Bld) [Entitic vol] 8.2 fL Normal 7.4-11.0 [facility] Comment on above: Performed By: #### [facility], [facility] #### Testing performed at [address] [address] Platelets (Bld) [#/Vol] 247 10*3/uL Normal 130-400 [facility] Comment on above: Performed By: #### [facility], [facility] #### Testing performed at [address] [address] RBC (Bld) [#/Vol] 3.48 10*6/uL Low 4.0-5.4 [facility] Comment on above: Performed By: #### [facility], [facility] #### Testing performed at [address] [address] WBC (Bld) [#/Vol] 10.5 10*3/uL Normal 3.6-11.0 [facility] Comment on above: Performed By: #### [facility], [facility] #### Testing performed at [address] [address] CBC, EDIF, PLATELETon 2023 ABSOLUTE BASOPHIL COUNT 0.0 10*3/uL 0.0 - 0.2 10*3/uL [facility] Basophils/100 WBC (Bld) 0.1 % 0.0 - 2.0 % [facility] Differential cell count method Nom (Bld) AUTO DIFF % [facility] Eosinophils (Bld) [#/Vol] 0.0 10*3/uL 0.0 - 0.7 10*3/uL [facility] Eosinophils/100 WBC (Bld) 0.0 % 0.0 - 11.0 % [facility] Erythrocyte distribution width (RBC) [Ratio] 14.3 % 11.5 - 14.5 % [facility] Hematocrit (Bld) [Volume fraction] 33.3 % Low 36.0 - 48.0 % [facility] Hemoglobin (Bld) [Mass/Vol] 10.9 g/dL Low [facility] Interpretation and review of laboratory results Abnormal [facility] Lymphocytes (Bld) [#/Vol] 0.6 10*3/uL Low 1.2 - 3.4 10*3/uL [facility] Lymphocytes/100 WBC (Bld) 5.9 % Low 20.0 - 55.0 % [facility] MCH (RBC) [Entitic mass] 31.4 pg 26.0 - 35.0 PG [facility] MCHC (RBC) [Mass/Vol] 32.8 g/dL [facility] MCV (RBC) [Entitic vol] 95.7 fL [facility] Monocytes (Bld) [#/Vol] 0.5 10*3/uL 0.0 - 0.7 10*3/uL [facility] Monocytes/100 WBC (Bld) 4.5 % 0.0 - 10.0 % [facility] Neutrophils (Bld) [#/Vol] 9.4 10*3/uL High 1.4 - 6.5 10*3/uL [facility] Neutrophils/100 WBC (Bld) 89.5 % High 37.0 - 75.0 % [facility] Platelet mean volume (Bld) [Entitic vol] 8.2 fL [facility] Platelets (Bld) [#/Vol] 247 10*3/uL 130 - 400 10*3/uL [facility] RBC (Bld) [#/Vol] 3.48 10*6/uL Low 4.0 - 5.4 10*6/uL [facility] WBC (Bld) [#/Vol] 10.5 10*3/uL 3.6 - 11.0 10*3/uL [facility] GENERAL PROCEDUREOrdered By: Vj Alvarez on 01-11-2024 [facility] Work Phone: Radiology Study observation (narrative) [facility] Work Phone: PROTIMEon 01-11-2024 INR Coag (PPP) [Relative time] 1.09 {INR} Normal 0.85-1.10 [facility] Comment on above: Result Comment: 2.0-3.0 THERAPEUTIC RANGE 2.5-3.5 MECHANICAL VALVE RANGE Performed By: #### P T #### Testing performed at [address] [address] PT Coag (PPP) [Time] 14.2 s Normal 11.8-14.4 [facility] Comment on above: Performed By: #### P T #### Testing performed at [address] [address] PROTIME-INRon 01-11-2024 INR Coag (PPP) [Relative time] 1.09 {INR} 0.85 - 1.10 [facility] Comment on above: 2.0-3.0 THERAPEUTIC RANGE 2.5-3.5 MECHANICAL VALVE RANGE PT Coag (PPP) [Time] 14.2 s [facility] REPEAT ABO/RHon 01-11-2024 REPEAT ABO/RH Positive Normal [facility] Comment on above: Performed By: #### U [facility], [facility] #### Testing performed at [address] [address] REPEAT ABO/RH (D) TYPINGon 0 01-11-2024 ABO and Rh group Nom (Bld ) Positive [facility] XR Pelvis 2 Viewson 01-11-20 Radiology Study observation (narrative) [facility] 36on 01-10-2024 36 Regarding echo from 12/29/2023: MD Amairani Corrales MA Patient echo is overall normal. Therefore she can proceed with surgery from cardiac point of view with necessary anesthesia. She is considered to be at low risk for perioperative cardiac events. Thank you Dr Kim Suarez faxed to Dr. Heredia's office. Normal [facility] Office Visiton 12-22-2023 Follow-up visit [id number] Cuate Goodman 1940 F Date Provider Department Center 12/22/2023 09302-RYUORICEFERINO QUIÑONEZ BH Y[facility]IOR [facility] Family History Problem Relation Age of Onset Lung cancer Mother Heart disease Father Other Father Prostate cancer Father Family Status - Relation Status Age at Mother Father Level of Service:02878 [place] OFFICE/OUTPATIENT NEW MODERATE MDM 45 MINUTES Normal [facility] URINE CULTUREon 12-18-2023 Bacteria identified Cx Nom (U) SPECIMEN DESCRIPTION URINE CLEAN CATCH UA DIPSTICK LEUKOCYTE POSITIVE * Result Note: NITRITE POSITIVE * COLONY COUNT >100,000 C/C/ML CULTURE KLEBSIELLA PNEUMONIAE * Result Note: Testing performed at [place] [address] * REPORT STATUS 12/18/2023 * Result Note: [...] CEFEPIME <=1 SUSCEPTIBLE CEFTAZIDIME <=1 SUSCEPTIBLE Normal [facility] Comment on above: Performed By: #### A [facility] #### Testing performed at [facility] [address] [place] [address] Testing performed at [facility] [address] [place] [address] CBCon 12-16-2023 ABSOLUTE BAS 0.1 10*3/uL Normal 0.0-0.2 [facility] Comment on above: Performed By: #### [facility], [facility] #### Testing performed at [address] [place] [address] ABSOLUTE EOS 0.1 10*3/uL Normal 0.0-0.7 [facility] Comment on above: Performed By: #### [facility], [facility] #### Testing performed at [address] [place] [address] ABSOLUTE NEUTROPHIL COUNT 3.5 10*3/uL Normal 1.4-6.5 [facility] Comment on above: Performed By: #### [facility], [facility] #### Testing performed at [address] [place] [address] Basophils/100 WBC (Bld) 0.9 % Normal 0.0-2.0 [facility] Comment on above: Performed By: #### [facility], [facility] #### Testing performed at [address] [place] [address] DTYPE AUTO DIFF Normal [facility] Comment on above: Performed By: #### [facility], [facility] #### Testing performed at [address] [place] [address] Eosinophils/100 WBC (Bld) 1.8 % Normal 0.0-11.0 [facility] Comment on above: Performed By: #### [facility], [facility] #### Testing performed at [address] [address] Lymphocytes (Bld) [#/Vol] 1.4 10*3/uL Normal 1.2-3.4 [facility] Comment on above: Performed By: #### [facility], [facility] #### Testing performed at [address] [place] [address] Lymphocytes/100 WBC (Bld) 25.0 % Normal 20.0-55.0 [facility] Comment on above: Performed By: #### [facility], [facility] #### Testing performed at [address] [place] [address] Monocytes (Bld) [#/Vol] 0.5 10*3/uL Normal 0.0-0.7 [facility] Comment on above: Performed By: #### [facility], [facility] #### Testing performed at [address] [place] [address] Monocytes/100 WBC (Bld) 9.1 % Normal 0.0-10.0 [facility] Comment on above: Performed By: #### [facility], [facility] #### Testing performed at [address] [place] [address] Neutrophils/100 WBC (Bld) 63.2 % Normal 37.0-75.0 [facility] Comment on above: Performed By: #### [facility], [facility] #### Testing performed at [address] [place] [address] Erythrocyte distribution width (RBC) [Ratio] 14.9 % High 11.5-14.5 [facility] Comment on above: Performed By: #### [facility], [facility] #### Testing performed at [address] [place] [address] Hematocrit (Bld) [Volume fraction] 39.2 % Normal 36.0-48.0 [facility] Comment on above: Performed By: #### [facility], [facility] #### Testing performed at [address] [place] [address] Hemoglobin (Bld) [Mass/Vol] 12.8 g/dL Normal 12.0-16.0 [facility] Comment on above: Performed By: #### [facility], [facility] #### Testing performed at [address] [place] [address] MCH (RBC) [Entitic mass] 31.1 pg Normal 26.0-35.0 [facility] Comment on above: Performed By: #### [facility], [facility] #### Testing performed at [address] [place] [address] MCHC (RBC) [Mass/Vol] 32.6 g/dL Normal 27.0-37.0 [facility] Comment on above: Performed By: #### [facility], [facility] #### Testing performed at [address] [place] [address] MCV (RBC) [Entitic vol] 95.4 fL Normal 80.0-100.0 [facility] Comment on above: Performed By: #### [facility], [facility] #### Testing performed at [address] [place] [address] Platelet mean volume (Bld) [Entitic vol] 8.8 fL Normal 7.4-11.0 [facility] Comment on above: Performed By: #### [facility], [facility] #### Testing performed at [address] [place] [address] Platelets (Bld) [#/Vol] 298 10*3/uL Normal 130-400 [facility] Comment on above: Performed By: #### [facility], [facility] #### Testing performed at [address] [place] [address] RBC (Bld) [#/Vol] 4.11 10*6/uL Normal 4.0-5.4 [facility] Comment on above: Performed By: #### [facility], [facility] #### Testing performed at [address] [address] WBC (Bld) [#/Vol] 5.6 10*3/uL Normal 3.6-11.0 [facility] Comment on above: Performed By: #### [facility], [facility] #### Testing performed at [address] [place] [address] CMP FASTINGon 12-16-2023 A:G RATIO 1.3 RATIO Normal [facility] Comment on above: Performed By: #### [facility], [facility] #### Testing performed at [address] [place] [address] ALBUMIN 4.0 G/dl Normal 3.5-5.0 [facility] Comment on above: Performed By: #### [facility], [facility] #### Testing performed at [address] [place] [address] ALP [Catalytic activity/Vol] 89 U/L Normal 38-126 [facility] Comment on above: Performed By: #### [facility], [facility] #### Testing performed at [address] [place] [address] ALT [Catalytic activity/Vol] 16 U/L Normal <35 [facility] Comment on above: Performed By: #### [facility], [facility] #### Testing performed at [address] [place] [address] AST [Catalytic activity/Vol] 25 U/L Normal 14-36 [facility] Comment on above: Performed By: #### [facility], [facility] #### Testing performed at [address] [address] Bilirubin [Mass/Vol] 0.3 mg/dL Normal 0.2-1.3 [facility] Comment on above: Performed By: #### [facility], [facility] #### Testing performed at [address] [address] Calcium [Mass/Vol] 9.9 mg/dL Normal 8.4-10.2 [facility] Comment on above: Performed By: #### [facility], [facility] #### Testing performed at [address] [address] Chloride [Moles/Vol] 107 mmol/L Normal 98-107 [facility] Comment on above: Result Comment: Shonda matthews note: Triglyceride levels of 600mg/dL or higher may positively bias chloride results by approximately 2.1 mmol Performed By: #### [facility], [facility] #### Testing performed at [address] [address] CO2 [Moles/Vol] 28 mmol/L Normal 22-30 [facility] Comment on above: Performed By: #### [facility], [facility] #### Testing performed at [address] [address] Creatinine [Mass/Vol] 0.80 mg/dL Normal 0.70-1.20 [facility] Comment on above: Performed By: #### [facility], [facility] #### Testing performed at [address] [address] EST. GFR, 89 ml/min/1.73sq.m [facility] Comment on above: Performed By: #### U [facility], [facility] #### Testing performed at [address] [place] [address] EST. GFR,Non 73 ml/min/1.73sq.m [facility] Comment on above: Performed By: #### [facility], [facility] #### Testing performed at [address] [place] [address] GFR Information Average GFR for 70+ years old = 75. Normal [facility] Comment on above: Result Comment: Office Inspector aviva Kidney disease, GFR = <60. Kidney failure, GFR = <15. The GFR estimate is not adjusted for extreme body surface area or acute process, nor has it been validated for women or ethnic groups other than and . Performed By: #### [facility], [facility] #### Testing performed at [address] [address] Glucose [Mass/Vol] 115 mg/dL High 70-100 [facility] Comment on above: Result Comment: NORMAL <100 mg/dL PREDIABETES 101-126 mg/dL DIABETES 126 mg/dL or higher Performed By: #### [facility], [facility] #### Testing performed at [address] [address] Potassium [Moles/Vol] 4.0 mmol/L Normal 3.5-5.1 [facility] Comment on above: Performed By: #### [facility], [facility] #### Testing performed at [address] [address] Protein [Mass/Vol] 7.2 g/dL Normal 6.3-8.2 [facility] Comment on above: Performed By: #### [facility], [facility] #### Testing performed at [address] [address] Sodium [Moles/Vol] 140 mmol/L Normal 137-145 [facility] Comment on above: Performed By: #### U [facility], [facility] #### Testing performed at [address] [address] Urea nitrogen [Mass/Vol] 19 mg/dL Normal 7-20 [facility] Comment on above: Performed By: #### [facility], [facility] #### Testing performed at [address] [address] HEMOGLOBIN A1Con 12-16-2023 Glucose [Mass/Vol] 117 mg/dL Normal [facility] Comment on above: Performed By: #### H A1CT #### Testing performed at [address] [address] HbA1c (Bld) [Mass fraction] 5.7 % Normal 0-6 [facility] Comment on above: Result Comment: NORMAL <5.7% PREDIABETES 5.7-6.4% DIABETES 6.5% OR HIGHER Performed By: #### H A1CT #### Testing performed at [address] [address] MRSA SCREENon 12-16-2023 MRSA DNA SMILEY+probe Ql (Unsp spec) Negative Normal NEGATIVE [facility] Comment on above: Performed By: #### M RSAST #### Testing performed at [address] [address] STAPH AUREUS SCREEN Positive Abnormal NEGATIVE [facility] Comment on above: Result Comment: TEST ING PERFORMED BY PCR Performed By: #### M RSAST #### Testing performed at [address] [address] PROTIMEon 12-16-2023 INR Coag (PPP) [Relative time] 1.47 {INR} High 0.85-1.10 [facility] Comment on above: Result Comment: 2.0-3.0 THERAPEUTIC RANGE 2.5-3.5 MECHANICAL VALVE RANGE Performed By: #### [facility], [facility] #### Testing performed at [address] [address] PT Coag (PPP) [Time] 17.9 s High 11.8-14.4 [facility] Comment on above: Performed By: #### [facility], [facility] #### Testing performed at [address] [address] TYPE AND SCREEN CROSSMATCH C ONVERTIBLEon 12-16-2023 TYPE AND SCREEN CROSSMATCH CONVERTIBLE WORKUP EXPIRES 01/13/2024,2359 ABO/RH(D) O POSITIVE ANTIBODY SCREEN NEGATIVE ARM BAND NUMBER [id number] Normal [facility] Comment on above: Performed By: #### [facility], [facility] #### Testing performed at [address] [address] URINE MACROSCOPICon 12-16-19 24 Bilirubin Ql (U) Negative Normal NEGATIVE [facility] Comment on above: Performed By: #### [facility], [facility] #### Testing performed at [address] [address] Clarity (U) SLIGHTLY CLOUDY Abnormal CLEAR [facility] Comment on above: Performed By: #### [facility], [facility] #### Testing performed at [address] [address] Color (U) YELLOW Normal YELLOW [facility] Comment on above: Performed By: #### [facility], [facility] #### Testing performed at [address] [address] Glucose Ql (U) Negative Normal NEGATIVE [facility] Comment on above: Performed By: #### U [facility], [facility] #### Testing performed at [address] [address] pH (U) 5.5 [pH] Normal 5.0-7.0 [facility] Comment on above: Performed By: #### [facility], [facility] #### Testing performed at [address] [address] Protein (U) [Mass/Vol] 30 mg/dL Abnormal NEGATIVE [facility] Comment on above: Performed By: #### [facility], [facility] #### Testing performed at [address] [place] [address] URINE HEMOGLOBIN MODERATE Abnormal NEGATIVE [facility] Comment on above: Performed By: #### [facility], [facility] #### Testing performed at [address] [place] [address] URINE KETONE Negative Normal NEGATIVE [facility] Comment on above: Performed By: #### [facility], [facility] #### Testing performed at [address] [address] URINE LEUKOTEST SMALL Abnormal NEGATIVE [facility] Comment on above: Performed By: #### U [facility], [facility] #### Testing performed at [address] [address] URINE NITRATES Positive Abnormal NEGATIVE [facility] Comment on above: Performed By: #### [facility], [facility] #### Testing performed at [address] [address] URINE SPEC GRAVITY 1.025 Normal 1.010-1.025 [facility] Comment on above: Performed By: #### [facility], [facility] #### Testing performed at [address] [address] Urobilinogen Qn (U) 0.2 {Monique'U}/dL Normal 0.2-1.0 [facility] Comment on above: Performed By: #### [facility], [facility] #### Testing performed at [address] [address] URINE MICROSCOPICon 12-16-19 24 BACTERIA 3+ Abnormal NEGATIVE [facility] Comment on above: Performed By: #### U [facility], [facility] #### Testing performed at [address] [address] CASTS NONE Normal [facility] Comment on above: Performed By: #### U [facility], [facility] #### Testing performed at [address] [address] CRYSTAL NONE Normal [facility] Comment on above: Performed By: #### [facility], [facility] #### Testing performed at [address] [address] Epithelial cells LM Ql (Urine sed) 1 TO 5 Normal [facility] Comment on above: Performed By: #### [facility], [facility] #### Testing performed at [address] [address] Mucus Ql (Urine sed) Negative Normal NEGATIVE [facility] Comment on above: Performed By: #### [facility], [facility] #### Testing performed at [address] [address] URINE COMMENT REFLEX CULTURE PER ESTABLISHED CRITERIA. Normal [facility] Comment on above: Performed By: #### [facility], [facility] #### Testing performed at [address] [address] URINE RBC'S 1 TO 5 Normal NEGATIVE [facility] Comment on above: Performed By: #### [facility], [facility] #### Testing performed at [address] [address] URINE WBC'S TOO NUMEROUS TO COUNT Abnormal NEGATIVE [facility] Comment on above: Performed By: #### U [facility], [facility] #### Testing performed at [address] [address] CBC AND AUTO DIFFon 09-18-19 24 ABSOLUTE BASOPHIL 0.1 X10E9/L Normal 0.0-0.2 [facility] Comment on above: Performed By: #### C BCA, CMP, 02932-7, 42611-8, 3084-1, 3016- 3, 3024-7, 3051-0, 2284-8, 2132-03 #### [facility] ([id number]) [address], [address] [place] [address] ABSOLUTE NEUTROPHIL 4.0 X10E9/L Normal 1.5-6.6 [facility] Comment on above: Performed By: #### C BCA, CMP, 69053-0, 69288-9, 3084-1, 3016- 3, 3024-7, 3051-0, 2284-8, 2132-03 #### [facility] ([id number]) [address], [address] [place] [address] Basophils/100 WBC (Bld) 1.0 % Normal [facility] Comment on above: Performed By: #### C BCA, CMP, 47252-4, 81389-4, 3084-1, 3016- 3, 3024-7, 3051-0, 228-8, 2132-03 #### [facility] ([id number]) [address], [address] [place] [address] Eosinophils (Bld) [#/Vol] 0.1 10*3/uL Normal 0.0-0.4 [facility] Comment on above: Performed By: #### C BCA, CMP, 73509-0, 94666-2, 3084-1, 3016- 3, 3024-7, 3051-0, 2284-8, 2132-03 #### [facility] ([id number]) [address], [address] [place] [address] Eosinophils/100 WBC (Bld) 1.8 % Normal [facility] Comment on above: Performed By: #### C BCA, CMP, 44611-2, 38499-5, 3084-1, 3016- 3, 3024-7, 3051-0, 2284-8, 2132-03 #### [facility] ([id number]) [address], [address] [place] [address] Erythrocyte distribution width (RBC) [Ratio] 15.2 % High 11.5-15.0 [facility] Comment on above: Performed By: #### C BCA, CMP, 73296-8, 31530-1, 3084-1, 3016- 3, 3024-7, 3051-0, 2284-8, 2132-03 #### [facility] ([id number]) [address] [place] [address] Hematocrit (Bld) [Volume fraction] 36.9 % Normal 35-47 [facility] Comment on above: Performed By: #### C BCA, CMP, 25083-6, 47462-2, 3084-1, 3016- 3, 3024-7, 3051-0, 2284-8, 2132-03 #### [facility] ([id number]) [address] [place] [address] Hemoglobin (Bld) [Mass/Vol] 12.3 g/dL Normal 11.7-15.5 [facility] Comment on above: Performed By: #### C BCA, CMP, 79203-5, 48354-3, 3084-1, 3016- 3, 3024-7, 3051-0, 2284-8, 2132-03 #### [facility] ([id number]) [address] [place] [address] Lymphocytes (Bld) [#/Vol] 1.5 10*3/uL Normal 1.0-3.5 [facility] Comment on above: Performed By: #### C BCA, CMP, 35147-5, 92015-8, 3084-1, 3016- 3, 3024-7, 3051-0, 2284-8, 2132-03 #### [facility] ([id number]) [address], [address] [place] [address] Lymphocytes/100 WBC (Bld) 23.4 % Normal [facility] Comment on above: Performed By: #### C BCA, CMP, 83210-0, 03816-5, 3084-1, 3016- 3, 3024-7, 3051-0, 2284-8, 2132-03 #### [facility] ([id number]) [address], [address] [place] [address] MCH (RBC) [Entitic mass] 30.8 pg Normal 27-34 [facility] Comment on above: Performed By: #### C BCA, CMP, 95515-6, 61344-6, 3084-1, 3016- 3, 3024-7, 3051-0, 2284-8, 2132-03 #### [facility] ([id number]) [address], [address] [place] [address] MCHC (RBC) [Mass/Vol] 33.3 g/dL Normal 32-36 [facility] Comment on above: Performed By: #### C BCA, CMP, 63891-9, 05839-4, 3084-1, 3016- 3, 3024-7, 3051-0, 2284-8, 2132-03 #### [facility] ([id number]) [address], [address] [place] [address] MCV (RBC) [Entitic vol] 93 fL Normal 80-100 [facility] Comment on above: Performed By: #### C BCA, CMP, 20600-6, 02412-5, 3084-1, 3016- 3, 3024-7, 3051-0, 2284-8, 2132-03 #### [facility] ([id number]) [address], [address] [place] [address] Monocytes (Bld) [#/Vol] 0.6 10*3/uL Normal 0-0.9 [facility] Comment on above: Performed By: #### C BCA, CMP, 60239-0, 22893-6, 3084-1, 3016- 3, 3024-7, 3051-0, 2284-8, 2132-03 #### [facility] ([id number]) [address], [address] [place] [address] Monocytes/100 WBC (Bld) 9.2 % Normal [facility] Comment on above: Performed By: #### C BCA, CMP, 34487-0, 63225-2, 3084-1, 3016- 3, 3024-7, 3051-0, 2284-8, 2132-03 #### [facility] ([id number]) [address], [address] [place] [address] Neutrophils/100 WBC (Bld) 64.6 % Normal [facility] Comment on above: Performed By: #### C BCA, CMP, 40609-7, 65984-1, 3084-1, 3016- 3, 3024-7, 3051-0, 2284-8, 2132-03 #### [facility] ([id number]) [address], [address] [place] [address] Platelet mean volume (Bld) [Entitic vol] 8.0 fL Normal 7-12 [facility] Comment on above: Performed By: #### C BCA, CMP, 45546-4, 53335-7, 3084-1, 3016- 3, 3024-7, 3051-0, 2284-8, 2132-03 #### [facility] ([id number]) [address], [address] [place] [address] Platelets (Bld) [#/Vol] 492 10*3/uL High 150-450 [facility] Comment on above: Performed By: #### C BCA, CMP, 84447-9, 48444-2, 3084-1, 3016- 3, 3024-7, 3051-0, 2284-8, 9 #### [facility] ([id number]) [address] [facility] [facility] [place] [address] RBC COUNT 3.99 X10E12/L Normal 3.80-5.20 [facility] Comment on above: Performed By: #### C BCA, CMP, 60062-0, 45792-9, 3084-1, 3016- 3, 3024-7, 3051-0, 2284-8, 2132-03 #### [facility] ([id number]) [address] [facility] [facility], [address] [place] [address] WBC (Bld) [#/Vol] 6.2 10*3/uL Normal 4.0-11.0 [facility] Comment on above: Performed By: #### C BCA, CMP, 52040-7, 36448-2, 3084-1, 3016- 3, 3024-7, 3051-0, 2284-8, 2132-03 #### [facility] ([id number]) [address] [facility], [address] [place] [address] COMPREHENSIVE METABOLIC PANE Jarad 09-18-2023 Albumin [Mass/Vol] 3.8 g/dL Normal 3.2-5.3 [facility] Comment on above: Performed By: #### C BCA, CMP, 62212-2, 20492-6, 3084-1, 3016- 3, 3024-7, 3051-0, 2284-8, 2132-03 #### [facility] ([id number]) [address] [facility], [address] [place] [address] ALP [Catalytic activity/Vol] 92 U/L Normal 39-130 [facility] Comment on above: Performed By: #### C BCA, CMP, 66629-3, 09906-7, 3084-1, 3016- 3, 3024-7, 3051-0, 2284-8, 2131-9 #### [facility] ([id number]) [address], [address] [place] [address] ALT [Catalytic activity/Vol] 9 U/L Normal 0-31 [facility] Comment on above: Performed By: #### C BCA, CMP, 65889-8, 83280-4, 3084-1, 3016- 3, 3024-7, 3051-0, 2284-8, 2131-9 #### [facility] ([id number]) [address], [address] [place] [address] Anion gap [Moles/Vol] 9 mmol/L Normal 5-15 [facility] Comment on above: Performed By: #### C BCA, CMP, 55097-8, 46961-0, 3084-1, 3016- 3, 3024-7, 3051-0, 2284-8, 2132-03 #### [facility] ([id number]) [address], [address] [place] [address] AST [Catalytic activity/Vol] 16 U/L Normal 0-41 [facility] Comment on above: Performed By: #### C BCA, CMP, 74672-3, 39424-5, 3084-1, 3016- 3, 3024-7, 3051-0, 2284-8, 2131-9 #### [facility] ([id number]) [address], [address] [place] [address] Bilirubin [Mass/Vol] 0.5 mg/dL Normal 0.3-1.2 [facility] Comment on above: Performed By: #### C BCA, CMP, 78140-9, 42604-4, 3084-1, 3016- 3, 3024-7, 3051-0, 2284-8, 2131-9 #### [facility] ([id number]) [address], [address] [place] [address] Calcium [Mass/Vol] 9.9 mg/dL Normal 8.5-10.5 [facility] Comment on above: Performed By: #### C BCA, CMP, 01097-8, 83225-8, 3084-1, 3016- 3, 3024-7, 3051-0, 2284-8, 2132-03 #### [facility] ([id number]) [address], [address] [place] [address] Chloride [Moles/Vol] 102 mmol/L Normal 98-109 [facility] Comment on above: Performed By: #### C BCA, CMP, 90163-5, 56463-5, 3084-1, 3016- 3, 3024-7, 3051-0, 2284-8, 2132-03 #### [facility] ([id number]) [address], [address] [place] [address] CO2 [Moles/Vol] 27 mmol/L Normal 22-32 [facility] Comment on above: Performed By: #### C BCA, CMP, 41753-0, 56173-7, 3084-1, 3016- 3, 3024-7, 3051-0, 228-8, 2132-03 #### [facility] ([id number]) [address], [address] [place] [address] Creatinine [Mass/Vol] 0.75 mg/dL Normal 0.40-1.00 [facility] Comment on above: Result Comment: METH OD TRACEABLE TO IDMS STANDARD Performed By: #### C BCA, CMP, 08066-1, 52860-4, 3084-1, 3016-3, 3024-7, 3051-0, 2284-8, 2132-03 #### [facility] ([id number]) [address], [address] [place] [address] GFR/1.73 sq M.predicted among non-blacks MDRD (S/P/Bld) [Vol rate/Area] 80 mL/min/{1.73_m2} Normal >59 [facility] Comment on above: Result Comment: Reported eGFR is based on the CKD-EPI 2020 equation that does not use a race coefficient. Performed By: #### C BCA, CMP, 22983-1, 21100-8, 3084-1, 3016-3, 3024-7, 3051-0, 2284-8, 9 #### [facility] ([id number]) [address], [address] [place] [address] Glucose [Mass/Vol] 98 mg/dL Normal 65-99 [facility] Comment on above: Performed By: #### C BCA, CMP, 62428-4, 58068-8, 3084-1, 3016- 3, 3024-7, 3051-0, 2284-8, 2132-03 #### [facility] ([id number]) [address], [address] [place] [address] Potassium [Moles/Vol] 4.4 mmol/L Normal 3.5-5.0 [facility] Comment on above: Performed By: #### C BCA, CMP, 48932-7, 61721-5, 3084-1, 3016- 3, 3024-7, 3051-0, 228-8, 2132-03 #### [facility] ([id number]) [address] [place] [address] Protein [Mass/Vol] 7.5 g/dL Normal 6.0-8.0 [facility] Comment on above: Performed By: #### C BCA, CMP, 44539-1, 11682-9, 3084-1, 3016- 3, 3024-7, 3051-0, 2284-8, 2132-03 #### [facility] ([id number]) [address] [place] [address] Sodium [Moles/Vol] 138 mmol/L Normal 134-146 [facility] Comment on above: Performed By: #### C BCA, CMP, 44306-8, 38589-9, 3084-1, 3016- 3, 3024-7, 3051-0, 2284-8, 2132-03 #### [facility] ([id number]) [address] [facility], [address] [place] [address] Urea nitrogen [Mass/Vol] 21 mg/dL Normal 5-27 [facility] Comment on above: Performed By: #### C BCA, CMP, 76655-3, 31229-5, 3084-1, 3016- 3, 3024-7, 3051-0, 2284-8, 2132-03 #### [facility] ([id number]) [address] [facility], [address] [place] [address] FREE T3on 09-18-2023 Free T3 [Mass/Vol] 3.02 pg/mL Normal 2.50-3.90 [facility] Comment on above: Performed By: #### C BCA, CMP, 98918-6, 84571-1, 3084-1, 3016- 3, 3024-7, 3051-0, 2284-8, 2132-03 #### [facility] ([id number]) [address] [facility], [address] [place] [address] FREE T4on 09-18-2023 Free T4 [Mass/Vol] 1.24 ng/dL Normal 0.61-1.60 [facility] Comment on above: Performed By: #### C BCA, CMP, 83247-4, 41716-2, 3084-1, 3016- 3, 3024-7, 3051-0, 2284-8, 2132-03 #### [facility] ([id number]) [address] [facility] [place] [address] Folate [Mass/Vol]on 09-18-19 24 FOLIC ACID 16.5 ng/mL Normal >5.8 [facility] Comment on above: Result Comment: NEW REFERENCE RANGE Performed By: #### C BCA, CMP, 30188-6, 30254-5, 3084-1, 3016-3, 3024-7, 3051-0, 2284-8, 2132-03 #### [facility] ([id number]) [address] [place] [address], [address] [place] [address] HGB A1C (GLYCO-HGB)on 2023 Glucose [Mass/Vol] 120 mg/dL Normal [facility] Comment on above: Performed By: #### C BCA, CMP, 12557-5, 50480-7, 3084-1, 3016- 3, 3024-7, 3051-0, 2284-8, 2132-03 #### [facility] ([id number]) [address] [place] [address], [address] [place] [address] HbA1c (Bld) [Mass fraction] 5.8 % High 4.4-5.6 [facility] Comment on above: Result Comment: NOTE ADA Guidelines Result HgbA1c Normal : less than 5.7 % Prediabetes : 5.7 % to 6.4 % Diabetes : > 6.4 % Use with caution in patients with abnormal hemoglobin variants as the half-life of red blood cells and in vivo glycation rates are affected. Performed By: #### C BCA, CMP, 43712-6, 06544-9, 3084-1, 3016-3, 3024-7, 3051-0, 2283-8, 2132-03 #### [facility] ([id number]) [address] [place] [address], [address] [place] [address] Lipid 1996 panelon 4 Cholesterol [Mass/Vol] 157 mg/dL Normal 150-200 [facility] Comment on above: Performed By: #### C BCA, CMP, 46004-8, 44891-3, 3084-1, 3016- 3, 3024-7, 3051-0, 2284-8, 2132-03 #### [facility] ([id number]) [address] [place] [address], [address] [place] [address] Cholesterol in HDL [Mass/Vol] 57 mg/dL Normal >39 [facility] Comment on above: Result Comment: HDL <40 mg/dL - High Risk HDL > or = 40mg/dL- Desirable HDL >60 mg/dL - Negative Risk Performed By: #### C RIRI, CMP, 03757-3, 11139-7, 3084-1, 3016-3, 3024-7, 3051-0, 2284-8, 2132-03 #### [facility] ([id number]) [address] [place] [address] Cholesterol in LDL [Mass/Vol] 79 mg/dL Normal <130 [facility] Comment on above: Result Comment: LDL <100 mg/dL - Desirable LDL >160 mg/dL - High Risk Performed By: #### Damian MENEZES, CMP, 94487-3, 92803-9, 3084-1, 3016-3, 3024-7, 3051-0, 2284-8, 2132-03 #### [facility] ([id number]) [address], [address] [place] [address] Cholesterol in VLDL [Mass/Vol] 21 mg/dL Normal 0-30 [facility] Comment on above: Performed By: ###Jake Salgado BCA, CMP, 10688-1, 74323-7, 3084-1, 3016- 3, 3024-7, 3051-0, 2284-8, 9 #### [facility] ([id number]) [address], [address] [place] [address] CHOLESTEROL:HDL 2.8 Normal 1.0-5.0 [facility] Comment on above: Performed By: #### C BCA, CMP, 58295-5, 27326-3, 3084-1, 3016- 3, 3024-7, 3051-0, 2284-8, 2132-03 #### [facility] ([id number]) [address], [address] [place] [address] Triglyceride [Mass/Vol] 104 mg/dL Normal 27-150 [facility] Comment on above: Performed By: #### C BCA, CMP, 41724-9, 34470-1, 3084-1, 3016- 3, 3024-7, 3051-0, 2284-8, 2132-03 #### [facility] ([id number]) [address] [place] [address] MAGNESIUMon 09-18-2023 Magnesium [Mass/Vol] 1.7 mg/dL Low 1.8-2.6 [facility] Comment on above: Performed By: #### C BCA, CMP, 82934-4, 72692-0, 3084-1, 3016- 3, 3024-7, 3051-0, 2283-8, 2132-03 #### [facility] ([id number]) [address] [place] [address] TSH Qnon 09-18-2023 TSH 2.26 uIU/mL Normal 0.49-4.67 [facility] Comment on above: Performed By: #### C BCA, CMP, 76416-7, 15461-5, 3084-1, 3016- 3, 3024-7, 3051-0, 228-8, 2132-03 #### [facility] ([id number]) [address], [address] [place] [address] URIC ACIDon 09-18-2023 Urate [Mass/Vol] 5.8 mg/dL Normal 2.6-7.2 [facility] Comment on above: Performed By: #### C BCA, CMP, 54149-0, 10791-0, 3084-1, 3016- 3, 3024-7, 3051-0, 2284-8, 2132-03 #### [facility] ([id number]) [address] [facility], [address] [place] [address] VITAMIN B12on 09-18-2023 Cobalamin (Vitamin B12) [Mass/Vol] pg/mL High 180-914 [facility] Comment on above: Performed By: #### C BCA, CMP, 30979-1, 07040-4, 3084-1, 3016- 3, 3024-7, 3051-0, 4-8, 2132-03 #### [facility] ([id number]) [address] [facility], [address] [place] [address] XR KNEE LT 3 VWSon 4 XR [...] Marquis MD on 09/18/2023 12:15 PM Normal [facility] CBC AUTO DIFFon 11-11-2022 BASO # 0.0 103/ul Normal 0.0-0.1 [facility] Comment on above: Performed By: #### U BRENT #### [facility] [address] [place] [address] Dr. Brandi Abarca Basophils/100 WBC (Bld) 0.5 % Normal 0.2-2.0 [facility] Comment on above: Performed By: #### U BRENT #### [facility] [address] [place] [address] Dr. Brandi Abarca EO # 0.2 103/ul Normal 0.0-0.7 [facility] Comment on above: Performed By: #### U BRENT #### [facility] [address] [place] [address] Dr. Brandi Abarca Eosinophils/100 WBC (Bld) 3.0 % Normal 0.9-7.0 [facility] Comment on above: Performed By: #### U BRENT #### [facility] [address] [place] [address] Dr. Brandi Abarca Erythrocyte distribution width (RBC) [Ratio] 13.6 % Normal 11.0-15.0 [facility] Comment on above: Performed By: #### U BRENT #### [facility] [address] [place] [address] Dr. Brandi Abarca Hematocrit (Bld) [Volume fraction] 34.4 % Critically low 36.0-48.0 [facility] Comment on above: Performed By: #### U BRENT #### [facility] [address] [place] [address] Dr. Brandi Abarca Hemoglobin (Bld) [Mass/Vol] 10.6 g/dL Critically low 12.0-16.0 [facility] Comment on above: Performed By: #### U BRENT #### [facility] [address] [place] [address] Dr. Brandi Abarca IG # 0.02 10e3/ul Normal 0.00-0.03 [facility] Comment on above: Performed By: #### U BRENT #### [facility] [address] [place] [address] Dr. Brandi Abarca IG % 0.3 % Normal 0.0-0.5 [facility] Comment on above: Performed By: #### U BRENT #### [facility] [address] [place] [address] Dr. Brandi Abarca LYMPH # 1.2 103/ul Normal 1.2-3.[address] [facility] Comment on above: Performed By: #### U BRENT #### [facility] [address] [place] [address] Dr. Brandi Abarca Lymphocytes/100 WBC (Bld) 20.4 % Critically low 20.5-60.0 [facility] Comment on above: Performed By: #### U BRENT #### [facility] [address] [place] [address] Dr. Brandi Abarca MANUAL DIFF REQ NO Normal [facility] Comment on above: Performed By: #### U BRENT #### [facility] [address] [place] [address] Dr. Brandi Abarca MCH (RBC) [Entitic mass] 30.5 pg Normal 26.7-34.0 [facility] Comment on above: Performed By: #### U BRENT #### [facility] [address] [place] [address] Dr. Brandi Abarca MCHC (RBC) [Mass/Vol] 30.8 g/dL Normal 29.9-35.[address] [facility] Comment on above: Performed By: #### U BRENT #### [facility] [address] [place] [address] Dr. Brandi Abarca MCV (RBC) [Entitic vol] 99.1 fL Critically high 81.0-99.0 [facility] Comment on above: Performed By: #### U BRENT #### [facility] [address] [place] [address] Dr. Brandi Abarca MONO # 0.7 103/ul Normal 0.3-0.[address] [facility] Comment on above: Performed By: #### U BRENT #### [facility] [address] [place] [address] Dr. Brandi Abarca Monocytes/100 WBC (Bld) 12.0 % Normal 1.7-12.0 [facility] Comment on above: Performed By: #### U BRENT #### [facility] [address] [place] [address] Dr. Brandi Abarca NEUT # 3.8 103/ul Normal 1.4-6.[address] [facility] Comment on above: Performed By: #### U BRENT #### [facility] [address] [place] [address] Dr. Brandi Abarca Neutrophils/100 WBC (Bld) 63.8 % Normal 43.0-75.0 [facility] Comment on above: Performed By: #### U BRENT #### [facility] [address] [place] [address] Dr. Brandi Abarca Platelet mean volume (Bld) [Entitic vol] 11.5 fL Normal 9.5-13.5 [facility] Comment on above: Performed By: #### U BRENT #### [facility] [address] [place] [address] Dr. Brandi Abarca PLT 212 103/ul Normal 150-[address] [facility] Comment on above: Performed By: #### U BRENT #### [facility] [address] [address] [address] Brandi Abarca RBC 3.47 106/ul Critically low 4.20-5.40 [facility] Comment on above: Performed By: #### U BRENT #### [facility] [address] [place] [address] Dr. Brandi Abarca WBC 5.9 103/ul Normal 4.0-11.0 [facility] Comment on above: Performed By: #### U BRENT #### [facility] [address] [place] [address] Dr. Brandi Abarca GLYCOHEMOGLOBIN A1Con 2022 ADA RECOMMENDATION SEE BELOW Normal [facility] Comment on above: Result Comment: ADA RECOMMENDED LIMIT 4.0 - 6.0 ADA THERAPEUTIC TARGET < 7.0 ACTION SUGGESTED > 7.0 Performed By: #### A 1C #### [facility] [address] [place] [address] Dr. Brandi Abarca Glucose [Mass/Vol] 114 mg/dL Normal [facility] Comment on above: Performed By: #### A 1C #### [facility] [address] [place] [address] Dr. Brandi Abarca HbA1c (Bld) [Mass fraction] 5.6 % Normal 4.5-6.2 [facility] Comment on above: Performed By: #### A 1C #### [facility] [address] [place] [address] Dr. Brandi Abarca MAGNESIUMon 11-11-2022 Magnesium [Mass/Vol] 1.6 mg/dL Critically low 1.8-2.4 [facility] Comment on above: Performed By: #### U BRENT #### [facility] [address] [place], [place] [id number] Dr. Brandi Abarca PROF 14(COMP METB)on 023 Albumin [Mass/Vol] 2.4 g/dL Critically low 3.4-5.0 [facility] Comment on above: Performed By: #### U BRENT #### [facility] [address] [place] [address] Dr. Brandi Abarca Albumin/Globulin [Mass ratio] 0.6 {ratio} Normal [facility] Comment on above: Performed By: #### U BRENT #### [facility] [address] [place] [address] Dr. Brandi Abarca ALP [Catalytic activity/Vol] 82 U/L Normal 46-116 [facility] Comment on above: Performed By: #### U BRENT #### [facility] [address] [place] [address] Dr. Brandi Abarca ALT [Catalytic activity/Vol] 14 U/L Normal 14-59 [facility] Comment on above: Performed By: #### U BRENT #### [facility] [address] [place] [address] Dr. Brandi Abarca Anion gap [Moles/Vol] 9.6 mmol/L Normal [facility] Comment on above: Performed By: #### U BRENT #### [facility] [address] [place] [address] Dr. Brandi Abarca AST [Catalytic activity/Vol] 14 U/L Critically low 15-37 [facility] Comment on above: Performed By: #### U BRENT #### [facility] [address] [place] [address] Dr. Brandi Abarca Bilirubin [Mass/Vol] 0.2 mg/dL Normal 0.2-1.0 [facility] Comment on above: Performed By: #### U BRENT #### [facility] [address] [place] [address] Dr. Brandi Abarca Calcium [Mass/Vol] 8.6 mg/dL Normal 8.5-10.1 [facility] Comment on above: Performed By: #### U BRENT #### [facility] [address] [place] [address] Dr. Brandi Abarca Chloride [Moles/Vol] 103 mmol/L Normal 98-107 [facility] Comment on above: Performed By: #### U BRENT #### [facility] [address] [address] [address] Brandi Abarca CO2 [Moles/Vol] 29.6 mmol/L Normal 21.0-32.0 [facility] Comment on above: Performed By: #### U BRENT #### [facility] [address] [address] [address] Brandi Abarca Creatinine [Mass/Vol] 0.90 mg/dL Normal 0.55-1.02 [facility] Comment on above: Performed By: #### U BRENT #### [facility] [address] [place] [address] Dr. Brandi Abarca EGFR-AF BRITISH >60 Normal >=60 [facility] Comment on above: Performed By: #### U BRENT #### [facility] [address] [address] [address] Brandi Abarca EGFR-NON AF BRITISH 60 mL/min/1.73m2 Normal >=60 [facility] Comment on above: Performed By: #### U BRENT #### [facility] [address] [place] [address] Dr. Brandi Abarca Globulin (S) [Mass/Vol] 3.9 g/dL Normal [facility] Comment on above: Performed By: #### U BRENT #### [facility] [address] [address] [address] Brandi Abarca Glucose [Mass/Vol] 113 mg/dL Critically high 74-106 [facility] Comment on above: Performed By: #### U BRENT #### [facility] [address] [address] [address] Brandi Abarca Potassium [Moles/Vol] 4.2 mmol/L Normal 3.5-5.1 [facility] Comment on above: Performed By: #### U BRENT #### [facility] [address] [address] [address] Brandi Abarca Protein [Mass/Vol] 6.3 g/dL Critically low 6.4-8.[address] [facility] Comment on above: Performed By: #### U BRENT #### [facility] [address] [place] [address] Dr. Brandi Abarca Sodium [Moles/Vol] 138 mmol/L Normal 136-145 [facility] Comment on above: Performed By: #### U BRENT #### [facility] [address] [place] [address] Dr. Brandi Abarca Urea nitrogen [Mass/Vol] 14.0 mg/dL Normal 7.0-18.0 [facility] Comment on above: Performed By: #### U BRENT #### [facility] [address] [place] [address] Dr. Brandi Abarca Urea nitrogen/Creatinine [Mass ratio] 15.6 mg/mg Normal [facility] Comment on above: Performed By: #### U BRENT #### [facility] [address] [place] [address] Dr. Brandi Abarca CBC AUTO DIFFon 11-10-2022 BASO # 0.0 103/ul Normal 0.0-0.1 [facility] Comment on above: Performed By: #### A 1C #### [facility] [address] [place] [address] Dr. Brandi Abarca Basophils/100 WBC (Bld) 0.3 % Normal 0.2-2.0 [facility] Comment on above: Performed By: #### A 1C #### [facility] [address] [place] [address] Dr. Brandi Abarca EO # 0.0 103/ul Normal 0.0-0.7 [facility] Comment on above: Performed By: #### A 1C #### [facility] [address] [place] [address] Dr. Brandi Abarca Eosinophils/100 WBC (Bld) 0.3 % Critically low 0.9-7.0 [facility] Comment on above: Performed By: #### A 1C #### [facility] [address] [place] [address] Dr. Brandi Abarca Erythrocyte distribution width (RBC) [Ratio] 13.7 % Normal 11.0-15.0 [facility] Comment on above: Performed By: #### A 1C #### [facility] [address] [place] [address] Dr. Brandi Abarca Hematocrit (Bld) [Volume fraction] 36.3 % Normal 36.0-48.0 [facility] Comment on above: Performed By: #### A 1C #### [facility] [address] [place] [address] Dr. Brandi Abarca Hemoglobin (Bld) [Mass/Vol] 11.3 g/dL Critically low 12.0-16.0 [facility] Comment on above: Performed By: #### A 1C #### [facility] [address] [place] [address] Dr. Brandi Abarca IG # 0.03 10e3/ul Normal 0.00-0.03 [facility] Comment on above: Performed By: #### A 1C #### [facility] [address] [place] [address] Dr. Brandi Abarca IG % 0.4 % Normal 0.0-0.5 [facility] Comment on above: Performed By: #### A 1C #### [facility] [address] [place] [address] Dr. Brandi Abarca LYMPH # 1.1 103/ul Critically low 1.2-3.8 [facility] Comment on above: Performed By: #### A 1C #### [facility] [address] [place] [address] Dr. Brandi Abarca Lymphocytes/100 WBC (Bld) 15.1 % Critically low 20.5-60.0 [facility] Comment on above: Performed By: #### A 1C #### [facility] [address] [place] [address] Dr. Brandi Abarca MANUAL DIFF REQ NO Normal [facility] Comment on above: Performed By: #### A 1C #### [facility] [address] [place] [address] Dr. Brandi Abarca MCH (RBC) [Entitic mass] 30.6 pg Normal 26.7-34.0 [facility] Comment on above: Performed By: #### A 1C #### [facility] [address] [address] [address] Brandi Abarca MCHC (RBC) [Mass/Vol] 31.1 g/dL Normal 29.9-35.2 [facility] Comment on above: Performed By: #### A 1C #### [facility] [address] [address] [address] Brandi Abarca MCV (RBC) [Entitic vol] 98.4 fL Normal 81.0-99.0 [facility] Comment on above: Performed By: #### A 1C #### [facility] [address] [address] [address] Brandi Abarca MONO # 0.9 103/ul Critically high 0.3-0.8 [facility] Comment on above: Performed By: #### A 1C #### [facility] [address] [address] [address] Brandi Abarca Monocytes/100 WBC (Bld) 11.6 % Normal 1.7-12.0 [facility] Comment on above: Performed By: #### A 1C #### [facility] [address] [place] [address] Dr. Brandi Abarca NEUT # 5.5 103/ul Normal 1.4-6.5 [facility] Comment on above: Performed By: #### A 1C #### [facility] [address] [address] [address] Brandi Abarca Neutrophils/100 WBC (Bld) 72.3 % Normal 43.0-75.[address] [facility] Comment on above: Performed By: #### A 1C #### [facility] [address] [address] [address] Brandi Abarca Platelet mean volume (Bld) [Entitic vol] 9.8 fL Normal 9.5-13.5 [facility] Comment on above: Performed By: #### A 1C #### [facility] [address] [address] [address] Brandi Abarca PLT 211 103/ul Normal 150-[address] [facility] Comment on above: Performed By: #### A 1C #### [facility] [address] [place], [place] [address] Dr. Brandi Abarca RBC 3.69 106/ul Critically low 4.20-5.40 [facility] Comment on above: Performed By: #### A 1C #### [facility] [address] [place], [place] [address] Dr. Brandi Abarca WBC 7.5 103/ul Normal 4.0-11.0 [facility] Comment on above: Performed By: #### A 1C #### [facility] [address] [place], [place] [address] Dr. Brandi Abarca ECHOCARDIO M/2D COMPLETEon 0 11-10-2022 ECHOCARDIO M/2D COMPLETE Patient: CUATE GOODMAN Exam Date: 11/10/2022 : 1940 Gender:F Ordering : RIYA POSADAS . Admission #: [id number] Family : Order #: [id number] CLICK HERE TO VIEW EXAM ECHOCARDIOGRAM REPORT [...] Moore M.D. on 11/11/2022 at 10:13 Normal [facility] GLYCOHEMOGLOBIN A1Con 2022 ADA RECOMMENDATION SEE BELOW Normal [facility] Comment on above: Result Comment: ADA RECOMMENDED LIMIT 4.0 - 6.0 ADA THERAPEUTIC TARGET < 7.0 ACTION SUGGESTED > 7.0 Performed By: #### U BRENT #### [facility] [address] [place] [address] Dr. Brandi Abarca Glucose [Mass/Vol] 120 mg/dL Normal [facility] Comment on above: Performed By: #### U BRENT #### [facility] [address] [address] [address] Brandi Abarca HbA1c (Bld) [Mass fraction] 5.8 % Normal 4.5-6.2 [facility] Comment on above: Performed By: #### U BRENT #### [facility] [address] [address] [address] Brandi Abarca MAGNESIUMon 11-10-2022 Magnesium [Mass/Vol] 1.6 mg/dL Critically low 1.8-2.4 [facility] Comment on above: Performed By: #### A 1C #### [facility] [address] [address] [address] Brandi Abarca PROF 14(COMP METB)on 023 Albumin [Mass/Vol] 2.6 g/dL Critically low 3.4-5.0 [facility] Comment on above: Performed By: #### U BRENT #### [facility] [address] [place] [address] Dr. Brandi Abarca Albumin/Globulin [Mass ratio] 0.7 {ratio} Normal [facility] Comment on above: Performed By: #### U BRENT #### [facility] [address] [place] [address] Dr. Brandi Abarca ALP [Catalytic activity/Vol] 84 U/L Normal 46-116 [facility] Comment on above: Performed By: #### U BRENT #### [facility] [address] [address] [address] Brandi Abarca ALT [Catalytic activity/Vol] 16 U/L Normal 14-59 [facility] Comment on above: Performed By: #### U BRENT #### [facility] [address] [place] [address] Dr. Brandi Abarca Anion gap [Moles/Vol] 5.4 mmol/L Normal [facility] Comment on above: Performed By: #### U BRENT #### [facility] [address] [place] [address] Dr. Brandi Abarca AST [Catalytic activity/Vol] 15 U/L Normal 15-37 [facility] Comment on above: Performed By: #### U BRENT #### [facility] [address] [address] [address] Brandi Abarca Bilirubin [Mass/Vol] 0.5 mg/dL Normal 0.2-1.0 [facility] Comment on above: Performed By: #### U BRENT #### [facility] [address] [place] [address] Dr. Brandi Abarca Calcium [Mass/Vol] 8.8 mg/dL Normal 8.5-10.1 [facility] Comment on above: Performed By: #### U BRENT #### [facility] [address] [address] [address] Brandi Abarca Chloride [Moles/Vol] 101 mmol/L Normal 98-107 [facility] Comment on above: Performed By: #### U BRENT #### [facility] [address] [address] [address] Brandi Abarca CO2 [Moles/Vol] 33.4 mmol/L Critically high 21.0-32.0 [facility] Comment on above: Performed By: #### U BRENT #### [facility] [address] [address] [address] Brandi Abarca Creatinine [Mass/Vol] 0.85 mg/dL Normal 0.55-1.02 [facility] Comment on above: Performed By: #### U BRENT #### [facility] [address] [address] [address] Brandi Abarca EGFR-AF BRITISH >60 Normal >=60 [facility] Comment on above: Performed By: #### U BRENT #### [facility] [address] [address] [address] Brandi Abarca EGFR-NON AF BRITISH >60 Normal >=60 [facility] Comment on above: Performed By: #### U BRENT #### [facility] [address] [address] [address] Brandi Abarca Globulin (S) [Mass/Vol] 3.9 g/dL Normal [facility] Comment on above: Performed By: #### U BRENT #### [facility] [address] [address] [address] Brandi Abarca Glucose [Mass/Vol] 116 mg/dL Critically high 74-106 [facility] Comment on above: Performed By: #### U BRENT #### [facility] [address] [place] [address] Dr. Brandi Abarca Potassium [Moles/Vol] 3.8 mmol/L Normal 3.5-5.1 [facility] Comment on above: Performed By: #### U BRENT #### [facility] [address] [address] [address] Brandi Abarca Protein [Mass/Vol] 6.5 g/dL Normal 6.4-8.2 [facility] Comment on above: Performed By: #### U BRENT #### [facility] [address] [place] [address] Dr. Brandi Abarca Sodium [Moles/Vol] 136 mmol/L Normal 136-145 [facility] Comment on above: Performed By: #### U BRENT #### [facility] [address] [place] [address] Dr. Brandi Abarca Urea nitrogen [Mass/Vol] 12.0 mg/dL Normal 7.0-18.[address] [facility] Comment on above: Performed By: #### U BRENT #### [facility] [address] [place] [address] Dr. Brandi Abarca Urea nitrogen/Creatinine [Mass ratio] 14.1 mg/mg Normal [facility] Comment on above: Performed By: #### U BRENT #### [facility] [address] [place] [address] Dr. Brandi Abarca PTT HEPARIN MONITORon 2022 aPTT Coag (Bld) [Time] 48.7 s Normal 39.5-54.[address] [facility] Comment on above: Performed By: #### P TTHEP #### [facility] [address] [place] [address] Dr. Brandi Abarca aPTT Coag (Bld) [Time] 56.6 s Critically high 39.5-54.[address] [facility] Comment on above: Performed By: #### A 1C #### [facility] [address] [place] [address] Dr. Brandi Abarca aPTT Coag (Bld) [Time] 51.4 s Normal 39.5-54.[address] [facility] Comment on above: Performed By: #### P TTHEP #### [facility] [address] [place] [address] Dr. Brandi Abarca BNPon 11-09-2022 Natriuretic peptide B (Bld) [Mass/Vol] 1702.0 pg/mL Normal <=1,800.[address] [facility] Comment on above: Performed By: #### U BRENT #### [facility] [address] [place] [address] Dr. Brandi Abarca Natriuretic peptide B (Bld) [Mass/Vol] 1702.0 pg/mL Normal <=1,800.[address] [facility] Comment on above: Performed By: #### H STROPN, BNP, BMP #### [facility] [address] [place] [address] Dr. Brandi Abarca CBC AUTO DIFFon 11-09-2022 BASO # 0.0 103/ul Normal 0.0-0.1 [facility] Comment on above: Performed By: #### A 1C #### [facility] [address] [place] [address] Dr. Brandi Abarca Basophils/100 WBC (Bld) 0.4 % Normal 0.2-2.0 [facility] Comment on above: Performed By: #### A 1C #### [facility] [address] [place] [address] Dr. Brandi Abarca EO # 0.2 103/ul Normal 0.0-0.7 [facility] Comment on above: Performed By: #### A 1C #### [facility] [address] [place] [address] Dr. Brandi Abarca Eosinophils/100 WBC (Bld) 1.8 % Normal 0.9-7.0 [facility] Comment on above: Performed By: #### A 1C #### [facility] [address] [place] [address] Dr. Brandi Abarca Erythrocyte distribution width (RBC) [Ratio] 13.6 % Normal 11.0-15.0 [facility] Comment on above: Performed By: #### A 1C #### [facility] [address] [place] [address] Dr. Brandi Abarca Hematocrit (Bld) [Volume fraction] 38.2 % Normal 36.0-48.0 [facility] Comment on above: Performed By: #### A 1C #### [facility] [address] [place] [address] Dr. Brandi Abarca Hemoglobin (Bld) [Mass/Vol] 12.2 g/dL Normal 12.0-16.[address] [facility] Comment on above: Performed By: #### A 1C #### [facility] [address] [place] [address] Dr. Brandi Abarca IG # 0.02 10e3/ul Normal 0.00-0.03 [facility] Comment on above: Performed By: #### A 1C #### [facility] [address] [place] [address] Dr. Brandi Abarca IG % 0.2 % Normal 0.0-0.5 [facility] Comment on above: Performed By: #### A 1C #### [facility] [address] [place] [address] Dr. Brandi Abarca LYMPH # 1.3 103/ul Normal 1.2-3.8 [facility] Comment on above: Performed By: #### A 1C #### [facility] [address] [place] [address] Dr. Brandi Abarca Lymphocytes/100 WBC (Bld) 15.4 % Critically low 20.5-60.0 [facility] Comment on above: Performed By: #### A 1C #### [facility] [address] [place] [address] Dr. Brandi Abarca MANUAL DIFF REQ NO Normal [facility] Comment on above: Performed By: #### A 1C #### [facility] [address] [place] [address] Dr. Brandi Abarca MCH (RBC) [Entitic mass] 30.7 pg Normal 26.7-34.0 [facility] Comment on above: Performed By: #### A 1C #### [facility] [address] [place] [address] Dr. Brandi Abarca MCHC (RBC) [Mass/Vol] 31.9 g/dL Normal 29.9-35.2 [facility] Comment on above: Performed By: #### A 1C #### [facility] [address] [place] [address] Dr. Brandi Abarca MCV (RBC) [Entitic vol] 96.0 fL Normal 81.0-99.0 [facility] Comment on above: Performed By: #### A 1C #### [facility] [address] [place] [address] Dr. Brandi Abarca MONO # 0.7 103/ul Normal 0.3-0.8 [facility] Comment on above: Performed By: #### A 1C #### [facility] [address] [place] [address] Dr. Brandi Abarca Monocytes/100 WBC (Bld) 8.6 % Normal 1.7-12.0 [facility] Comment on above: Performed By: #### A 1C #### [facility] [address] [place] [address] Dr. Brandi Abarca NEUT # 6.0 103/ul Normal 1.4-6.5 [facility] Comment on above: Performed By: #### A 1C #### [facility] [address] [place] [address] Dr. Brandi Abarca Neutrophils/100 WBC (Bld) 73.6 % Normal 43.0-75.0 [facility] Comment on above: Performed By: #### A 1C #### [facility] [address] [place] [address] Dr. Brandi Abarca Platelet mean volume (Bld) [Entitic vol] 9.8 fL Normal 9.5-13.5 [facility] Comment on above: Performed By: #### A 1C #### [facility] [address] [place] [address] Dr. Brandi Abarca PLT 234 103/ul Normal 150-[address] [facility] Comment on above: Performed By: #### A 1C #### [facility] [address] [place] [address] Dr. Brandi Abarca RBC 3.98 106/ul Critically low 4.20-5.40 [facility] Comment on above: Performed By: #### A 1C #### [facility] [address] [place] [address] Dr. Brandi Abarca WBC 8.1 103/ul Normal 4.0-11.0 [facility] Comment on above: Performed By: #### A 1C #### [facility] [address] [place] [address] Dr. Brandi Abarca CTA CHEST WO W [...] Date: 2022-11-09 08:23 Normal [facility]18 SARS-CoV-2 (COVID-19) RNA SMILEY+probe Ql (Unsp spec) Not detected Normal NOT DETECTED [facility] Comment on above: Result Comment: This test is not yet approved or cleared by the [place] FDA. When there are no FDA-approved or cleared tests available, and other criteria are met, FDA can make tests available under an emergency access mechanism called an Emergency Use Authorization (EUA). The EUA for this test is supported by the [place] of Health and Human Service's (HHS's) declaration [...] with SARS-CoV-2. Performed By: #### C [facility] #### [facility] [address] [address] [address] Brandi Abarca PROF CHEM 8 (BAS METB)on Anion gap [Moles/Vol] 12.2 mmol/L Normal [facility] Comment on above: Performed By: #### H STROPN, BNP, BMP #### [facility] [address] [place] [address] Dr. Brandi Abarca Calcium [Mass/Vol] 9.0 mg/dL Normal 8.5-10.1 [facility] Comment on above: Performed By: #### H STROPN, BNP, BMP #### [facility] [address] [place] [address] Dr. Brandi Abarca Chloride [Moles/Vol] 103 mmol/L Normal 98-107 [facility] Comment on above: Performed By: #### H STROPN, BNP, BMP #### [facility] [address] [place] [address] Dr. Brandi Abarca CO2 [Moles/Vol] 30.6 mmol/L Normal 21.0-32.0 [facility] Comment on above: Performed By: #### H STROPN, BNP, BMP #### [facility] [address] [place] [address] Dr. Brandi Abarca Creatinine [Mass/Vol] 0.89 mg/dL Normal 0.55-1.02 [facility] Comment on above: Performed By: #### H STROPN, BNP, BMP #### [facility] [address] [place] [address] Dr. Brandi Abarca EGFR-AF BRITISH >60 Normal >=60 [facility] Comment on above: Performed By: #### H STROPN, BNP, BMP #### [facility] [address] [place] [address] Dr. Brandi Abarca EGFR-NON AF BRITISH >60 Normal >=60 [facility] Comment on above: Performed By: #### H STROPN, BNP, BMP #### [facility] [address] [place] [address] Dr. Brandi Abarca Glucose [Mass/Vol] 102 mg/dL Normal 74-106 [facility] Comment on above: Performed By: #### H STROPN, BNP, BMP #### [facility] [address] [address] [address] Brandi Abarca Potassium [Moles/Vol] 3.8 mmol/L Normal 3.5-5.1 [facility] Comment on above: Performed By: #### H STROPN, BNP, BMP #### [facility] [address] [place] [address] Dr. Brandi Abarca Sodium [Moles/Vol] 142 mmol/L Normal 136-145 [facility] Comment on above: Performed By: #### H STROPN, BNP, BMP #### [facility] [address] [place] [address] Dr. Brandi Abarca Urea nitrogen [Mass/Vol] 16.0 mg/dL Normal 7.0-18.0 [facility] Comment on above: Performed By: #### H STROPN, BNP, BMP #### [facility] [address] [place] [address] Dr. Brandi Abarca Urea nitrogen/Creatinine [Mass ratio] 18.0 mg/mg Normal [facility] Comment on above: Performed By: #### H STROPN, BNP, BMP #### [facility] [address] [place] [address] Dr. Brandi Abarca PROTIMEon 11-09-2022 INR Coag (PPP) [Relative time] 1.00 {INR} Normal [facility] Comment on above: Performed By: #### A 1C #### [facility] [address] [place] [address] Dr. Brandi Abarca INR GUIDELINES SEE BELOW Normal [facility] Comment on above: Result Comment: NOVA RED INR: 2.0 - 3.0 CONDITIONS NOT LISTED BELOW 2.5 - 3.5 FOR PROSTHETIC HEART VALVE REPLACEMENT 2.5 - 3.5 RECURRENT THROMBOSIS Performed By: #### A 1C #### [facility] [address] [place] [address] Dr. Brandi Abarca PT Coag (PPP) [Time] 10.6 s Normal 9.0-11.6 [facility] Comment on above: Performed By: #### A 1C #### [facility] [address] [place] [address] Dr. Brandi Abarca PTTon 11-09-2022 aPTT Coag (Bld) [Time] 24.3 s Normal 22.3-36.2 [facility] Comment on above: Performed By: #### A 1C #### [facility] [address] [place] [address] Dr. Brandi Abarca PTT HEPARIN MONITORon 2022 aPTT Coag (Bld) [Time] 47.3 s Normal 39.5-54.2 [facility] Comment on above: Performed By: #### U BRENT #### [facility] [address] [place] [address] Dr. Brandi Abarca SYMPTOMATIC COVID-19 ANTIGEN on 11-09-2022 EUA Statement SEE BELOW Normal [facility] Comment on above: Result Comment: This [...] By: #### C VDAGS #### [facility] [address] [place] [address] Dr. Brandi Abarca SARS-CoV-2 (COVID-19) RNA SMILEY+probe Ql (Unsp spec) Negative Normal NEGATIVE [facility] Comment on above: Performed By: #### C VDAGS #### [facility] [address] [place] [address] Dr. Brandi Abarca TROPONIN, HIGH SENSITIVITYon 11-09-2022 HSTROP 15.6 pg/mL Normal 4.0-51.3 [facility] Comment on above: Result Comment: CUT- OFF POINTS HAVE BEEN ESTABLISHED BASED ON THE FOURTH UNIVERSAL DEFINITIONS OF MYOCARDIAL INFARCTION. THE UPPER REFERENCE LIMIT (URL) OF TROPONIN, DEFINED THE 99TH PERCENTILE OF cTnI DISTRIBUTION IN A REFERENCE POPULATION, HAS BEEN CONFIRMED THE DECISION THRESHOLD FOR SD DIAGNOSIS. Performed By: #### H STROPN #### [facility] [address] [address] [address] Brandi Abarca HSTROP 16.4 pg/mL Normal 4.0-51.3 [facility] Comment on above: Result Comment: CUT- OFF POINTS HAVE BEEN ESTABLISHED BASED ON THE FOURTH UNIVERSAL DEFINITIONS OF MYOCARDIAL INFARCTION. THE UPPER REFERENCE LIMIT (URL) OF TROPONIN, DEFINED THE 99TH PERCENTILE OF cTnI DISTRIBUTION IN A REFERENCE POPULATION, HAS BEEN CONFIRMED THE DECISION THRESHOLD FOR SD DIAGNOSIS. Performed By: #### H STROPN, BNP, BMP #### [facility] [address] [place] [address] Dr. Brandi Abarca URIC ACID SERUMon 11-09-2022 Urate [Mass/Vol] 4.4 mg/dL Normal 2.6-6.0 [facility] Comment on above: Performed By: #### U BRENT #### [facility] [address] [place] [address] Dr. Brandi Abarca XR CHEST 1 Von [...] by: KIMBER MALLOY Date: 2022-11-09 07:22 Normal [facility] Vital Signs Date Time Vital Sign Value Performing Clinician Layo lundy 03-16-2024 15:27-0400 Body height 162.[address] Mackey APRN-FARMER VEGETABLE Work Phone: [employer] 03-16-2024 15:27-0400 Body mass index (BMI) [Ratio] 39.82 kg/m2 Ave Mackey APRN-MARGARITA Work Phone: [facility] 03-16-2024 15:27-0400 Body temperature 98.29 [degF] Ave Mackey APRN-FARMER VEGETABLE Work Phone: [facility] 03-16-2024 15:27-0400 Body weight 105.[address] Mackey APRN-MARGARITA Work Phone: [facility] 02-23-2024 15:12-0400 Body height 162.6 cm Paige Damon Work Phone: [facility] 02-23-2024 15:12-0400 Body mass index (BMI) [Ratio] 39.82 kg/m2 Paige Damon Work Phone: [facility] 02-23-2024 15:12-0400 Body temperature 98.2 [degF] Paige Damon Work Phone: [facility] 02-23-2024 15:12-0400 Body weight 105.23 kg Paige Damon Work Phone: [facility] 02-11-2024 07:32-0400 Body temperature 97.9 [degF] Mohan Gomez MD Work Phone: [facility] 02-11-2024 07:32-0400 Diastolic blood pressure 57 mm[Hg] Mohan Gomez MD Work Phone: [facility] 02-11-2024 07:32-0400 Heart rate 85 /min Mohan Gomez MD Work Phone: [facility] 02-11-2024 07:32-0400 Respiratory rate 18 /min Mohan Gomez MD Work Phone: [facility] 02-11-2024 07:32-0400 SaO2% (BldA) [Mass fraction] 94 % Mohan Gomez MD Work Phone: [facility] 02-11-2024 07:32-0400 Systolic blood pressure 109 mm[Hg] Mohan Gomez MD Work Phone: [facility] 02-11-2024 04:32-0400 Body mass index (BMI) [Ratio] 39.93 kg/m2 Mohan Gomez MD Work Phone: [facility] [employer] [facility] 02-11-2024 04:32-0400 Body weight 105.51 kg Mohan Gomez MD Work Phone: [facility] 02-02-2024 11:44-0400 Body height 162.6 cm [email or web address] Work Phone: [facility] [employer] [facility] 02-02-2024 11:44-0400 Body mass index (BMI) [Ratio] 41.37 kg/m2 [email or web address] Work Phone: [facility] [employer] [facility] 02-02-2024 11:44-0400 Body temperature 98.8 [degF] [email or web address] Work Phone: [employer] [facility] 02-02-2024 11:44-0400 Body weight 109.32 kg [email or web address] Work Phone: [facility] [employer] [facility] 01-19-2024 14:50-0400 Body height 162.6 cm Mohan Gomez MD Work Phone: [facility] [employer] [facility] 01-19-2024 12:50-0400 Body temperature 98.2 [degF] Erik Heredia MD Work Phone: [facility] [employer] [facility] 01-19-2024 12:50-0400 Diastolic blood pressure 62 mm[Hg] Erik Heredia MD Work Phone: [employer] [facility] 01-19-2024 12:50-0400 Heart rate 89 /min Erik Heredia MD Work Phone: [facility] 01-19-2024 12:50-0400 Respiratory rate 16 /min Erik Heredia MD Work Phone: [facility] 01-19-2024 12:50-0400 SaO2% (BldA) [Mass fraction] 97 % Erik Heredia MD Work Phone: [facility] [employer] [facility] 01-19-2024 12:50-0400 Systolic blood pressure 137 mm[Hg] Erik Heredia MD Work Phone: [facility] 01-13-2024 10:00-0400 Body mass index (BMI) [Ratio] 37.24 kg/m2 Erik Heredia MD Work Phone: [facility] 01-13-2024 10:00-0400 Body weight 98.4 kg Erik Heredia MD Work Phone: [facility] 01-11-2024 11:55-0400 Body height 162.6 cm Erik Heredia MD Work Phone: [facility] 12-01-2023 14:19-0400 Body height 162.6 cm Erik Heredia MD Work Phone: [facility] 12-01-2023 14:19-0400 Body mass index (BMI) [Ratio] 38.96 kg/m2 Erik Heredia MD Work Phone: [facility] 12-01-2023 14:19-0400 Body weight 102.97 kg Erik Heredia MD Work Phone: [facility] Encounters Encounter Date Encounter Type Care Provider Facility Start: 03-16-2024 End: 03-16-2024 Postop follow up visit related to original px Paige Damon Work Phone: [facility] Comment on above: 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) Start: 03-16-2024 End: 03-16-2024 Subsequent hospital visit by physician Paige Damon Work Phone: [facility] Start: 03-16-2024 ambulatory PAIGE DAMON [facility] Start: 02-23-2024 End: 02-23-2024 Postop follow up visit related to original px Paige Damon Work Phone: [facility] Comment on above: S/P total left hip a rthroplasty (Primary Dx) Start: 02-23-2024 ambulatory PAIGE DAMON [facility] Start: 02-23-2024 End: 02-23-2024 Subsequent hospital visit by physician Paige Damon Work Phone: [facility] Start: 02-02-2024 End: 02-02-2024 Postop follow up visit related to original px Paige Damon Work Phone: [facility] Comment on above: S/P total left hip a rthroplasty (Primary Dx) Start: 02-02-2024 End: 02-02-2024 Subsequent hospital visit by physician Paige Damon Work Phone: [facility] Start: 02-02-2024 [facility] Start: 01-19-2024 End: 02-11-2024 Evaluation and management of inpatient Mohan Gomez MD Work Phone: [facility] Start: 01-11-2024 End: 01-19-2024 ambulatory TIAN KUHN [facility] Start: 01-11-2024 End: 01-19-2024 Encounter for other preprocedural examination [facility] Start: 01-11-2024 End: 01-19-2024 Patient encounter status Erik Heredia MD Work Phone: [facility] Start: 01-11-2024 End: 01-19-2024 Subsequent hospital visit by physician Erik Heredia MD Work Phone: [facility] Comment on above: S/P total hip arthro plasty Start: 12-22-2023 End: 12-22-[address] [facility] Start: 12-22-2023 End: 12-22-2023 Encounter for other preprocedural examination [facility] Start: 12-16-2023 ambulatory ABHI BALTAZAR [facility] Start: 12-01-2023 End: 12-01-2023 Office outpatient new 60 minutes Erik Heredia MD Work Phone: [facility] Comment on above: Pain of left hip (Pr imary Dx) Start: 12-01-2023 End: 12-01-2023 Subsequent hospital visit by physician Erik Heredia MD Work Phone: [facility] Start: 12-01-2023 ambulatory TRUMAN BOO JR. [facility] Start: 11-03-2023 End: 11-04-2023 ambulatory TRUMAN ARRIAGA Not Available Start: 09-18-2023 End: 09-19-2023 ambulatory TIAN KUHN [facility] Start: 11-09-[address] TIAN KUHN [...] count complete auto&auto difrntl wbc Ave Mackey WASTE REDUCTION COORDINATOR-FARMER VEGETABLE Work Phone: Start: 01-13-2024 Assay of troponin [...] examinati on pelvis 1/[address] APRN-FARMER VEGETABLE Work Phone: Start: 01-11-2024 SURGICAL PATHOLOGY REQUEST Erik Heredia MD Work Phone: Start: 01-11-2024 End: 01-11-2024 Arthrp acetblr/prox fem prostc agrft/algrft rEik eHredia MD Work Phone: Start: 01-11-2024 Blood group typing, RH phenotyping Susan Chadwick PA-C Work Phone: Start: 01-11-2024 Prothrombin time Susan brian PA-C Work Phone: Start: 01-11-2024 GENERAL PROCEDURE Shantell Dasilva RN Plan of Treatment Date Care Activity Detail Author Start: 02-14-2026 Tetanus vaccination [facility] Start: 03-19-2024 Influenza vaccination A [facility] Start: 03-17-2024 End: 03-17-2024 Patient encounter procedure 03/17/2024 10:45 AM EDT Office Visit [facility] [address] [place] [address] Mohan Gomez MD [address] [place] [address] [facility] Start: 03-09-2024 End: 03-09-2024 Patient encounter procedure 03/09/2024 4:00 PM EDT Office Visit [facility] [address] [place] [address] [address] Mackey, WASTE REDUCTION COORDINATOR-FARMER VEGETABLE [address] [place] [address] [facility] Start: 02-23-2024 End: 02-23-2024 ambulatory [facility] Start: 02-23-2024 End: 02-23-2024 Patient encounter procedure 02/23/2024 3:00 PM EDT Office Visit [facility] [address] [place] [address] Paige Damon [address] [place] [address] [facility] Start: 02-21-2024 End: 02-21-2024 [facility] Start: 02-02-2024 End: 02-02-2024 Patient encounter procedure 02/02/2024 11:30 AM EDT Office Visit [facility] [address] [place] [address] Paige Damon [address] [place] [id number] [facility] Start: 01-10-2024 End: 01-10-2024 Admission to same day surgery center 01/10/2024 6:45 AM EDT - 01/10/2024 8:00 AM EDT Surgery [place] [address] [place] [address] Erik Heredia MD [address] [place] [address] ARTHROPLASTY HIP TOTAL AL [facility] Comment on above: ARTHROPLASTY HIP TOT AL AL Start: 01-10-2024 End: 01-10-2024 Arthrp acetblr/prox fem prostc agrft/algrft ARTHROPLASTY HIP TOTAL LATERAL APPROACH Osteoarthritis of left hip, unspecified osteoarthritis type 01/10/2024 6:45 AM EDT [facility] Start: 01-10-2024 Subsequent hospital visit by physician 01/10/2024 6:45 AM EDT Hospital Encounter [facility] [address] [place] [address] Erik Heredia MD [address] [place] [address] Osteoarthritis of left hip, unspecified osteoarthritis type [facility] Comment on above: Osteoarthritis of le ft hip, unspecified osteoarthritis type Start: 12-16-2023 End: 12-16-2023 Admission to establishment 12/16/2023 10:00 AM EDT Pre-Operative Nurse Assessment [facility] [address] [place] [address] [facility] Start: 03-19-2023 COVID-19 VACCINE ( season) COVID-19 VACCINE ( season) [facility] Start: 03-19-2023 [facility] Start: 10-17-2008 Pneumococcal vaccination [facility] Start: 2005 Zoster vaccine hzv l cheryl for subcutaneous use ZOSTER (SHINGLES) VACCINE (2 of 3) [facility] Start: 2005 [facility] Start: 2002 RSV VACCINE (1 - 1-d ose 60+ series) RSV VACCINE (1 - 1-dose 60+ series) [facility] Start: 10-11-1987 Screening for malign ant neoplasm of colon [facility] Start: 08-23-1985 Hepatitis B vaccination [facility] Start: 1982 Screening for malign ant neoplasm of breast [facility] Start: 10-11-1963 Screening for malign ant neoplasm of cervix [facility] Start: 1942 Screening for osteoporosis [facility] End: 01-11-2024 XR Hip - left Single view [facility] Comment on above: One Time for 1 Occur rences starting 01/11/2024 until 01/11/2024 XR Pelvis and Hip - left Views XR HIP WITH PELVIS LEFT Imaging Routine Pain of left hip 12/01/2023 2:03 PM EDT [facility] Work Phone: XR Pelvis and Hip - left Views XR HIP WITH PELVIS LEFT Imaging Routine S/P total left hip arthroplasty 02/02/2024 11:31 AM EDT [facility] XR Pelvis and Hip - left Views XR HIP WITH PELVIS LEFT Imaging Routine S/P total left hip arthroplasty 02/23/2024 2:59 PM EDT [facility] XR Pelvis and Hip - left Views XR HIP WITH PELVIS LEFT Imaging Routine Hx of total hip arthroplasty, left 03/16/2024 2:21 PM EDT [facility] Immunizations Immunization Date Immunization Notes Care Provider Fa cili 02-12-2021 influenza virus vaccine, unspecified formulation Erik Heredia MD Work Phone: [facility] 08-15-2005 zoster vaccine, unspecified formulation Erik Heredia MD Work Phone: [facility] Payers Date Payer Category Payer Medicare [id number] 1957 Medicare [id number] 1940 Unknown [id number] 2.16.84 [id number] 1942 Unknown [id number] 2.16.8 40.1.452433.3.579.2.1286 1942 Unknown [id number] 2.16.8 40.1.717225.3.579.2.1286 1942 Unknown [id number] 2.16.8 40.1.813852.3.579.2.1286 1942 Unknown [id number] 2.16.84 0.1.164834.3.579.2.1259 1942 Unknown [id number] 2.16.84 0.1.875056.3.579.2.1259 1942 Unknown [id number] 2.16.8 40.1.331672.3.579.2.983 1942 Unknown [id number] 2.16.8 40.1.853259.3.579.2.983 1942 Unknown [id number] 2.16.8 40.1.537349.3.579.2.983 1942 Unknown [id number] 2.16.8 40.1.870017.3.579.2.983 1942 Unknown [id number] 2.16.8 40.1.157309.3.579.2.983 1942 Unknown [id number] 2.16.8 40.1.061178.3.579.2.983 1942 Unknown [id number] 2.16.8 40.1.477982.3.579.2.983 1942 Unknown [id number] 2.16.8 40.1.808636.3.579.2.983 1942 Unknown [id number] 2.16.8 40.1.696066.3.579.2.983 1942 Unknown [id number] 2.16.8 40.1.933628.3.579.2.983 1942 Unknown [id number] 2.16.8 40.1.757466.3.579.2.983 Social History Date Type Detail Facility Start: 12-01-2023 Tobacco smoking status NHIS Never sm oked tobacco [facility] Start: 12-01-2023 Tobacco use and exposure Smoke less tobacco non-user [facility] Start: 12-01-2023 End: 03-16-2024 Alcoholic beverage intake Lifetime non-drinker (finding) [facility] Start: 12-01-2023 End: 01-21-2024 History of Social function [facility] Start: 12-01-2023 End: 01-21-2024 Tobacco use panel [facility] Start: 1940 Sex assigned at Not on file A Jimmy Fairly Has the [employer], or [employer] threatened to shut off services in your home in past 12Mo No [employer] (I/We) worried david er (my/our) food would run out before (I/we) got money to buy more. Never true [employer] In the past 12 month s, has lack of transportation kept you from medical appointments or from getting medications? No [employer] How hard is it for y ou to pay for the very basics like food, housing, medical care, and heating Not very hard [employer] Medical Equipment Procedure Code Equipment Code Equipment Origin al Text Equipment Identifier Dates [id number] Start: 01-11-2024 [id number] Start: 01-11-2024 [id number] Start: 01-11-2024 [id number] Start: 01-11-2024 [id number] Start: 01-11-2024 [id number] Start: 01-11-2024 [id number] Start: 01-11-2024 [id number] Start: 01-11-2024 [id number] Start: 01-11-2024 [id number] Start: 01-11-2024 Clinical Notes 12-01-2023 to 03-16-2024 Alhaji Dickinson, [facility] - 03/16/2024 3:00 PM RENE Coon - 03/16/2024 3:00 PM EDNorma Dickinson, [facility] - 02/23/2024 3:00 PM Tylor [...] 03/16/2024 3:22 PM Patient: Cuate Goodman MR#: [id number] : 1940 Age: 83 y.o. Referring Physician: [...] SUBJECTIVE: Cuate is an [facility] patient [facility]. Here today for followup. She is now [...] any questions or concerns in the meantime. (DOC:[id number]) I have reviewed the findings of the clinical product support engineer and agree with their assessment. Ave Mackey APRN-MARGARITA Ortho Nurse - Established Patient Intake Room#: 4 01/11/24 ARTHROPLASTY HIP TOTAL AL left Patient arrives with her grandson in her wheelchair. She is an 83 year old female. She has no complaints and is hoping to move to weight bearing status. Date: 03/16/2024 3:22 PM Patient: Cuate Goodman MR#: [id number] : 1940 Age: 83 y.o. Referring Physician: [...] oxycodone, and penicillins. documented in this encounter [facility] 02-23-2024 History of Presen t [...] 02/23/2024 2:58 PM Patient: Cuate Goodman MR#: [id number] : 1940 Age: 83 y.o. Referring Physician: [...] time. All pertinant portions of the clinical product support engineer documentation was reviewed. Paige Damon I have reviewed the findings of the clinical product support engineer and agree with their assessment. Paige Damon [...] 02/23/2024 2:58 PM Patient: Cuate Goodman MR#: [id number] : 1940 Age: 83 y.o. Referring Physician: [...] oxycodone, and penicillins. documented in this encounter [facility] 02-11-2024 Hospital course Narrative Images [...] Dept Phone 02/21/2024 8:45 AM Janet Moreno [facility] [phone] 02/23/2024 3:00 PM Paige Damon [facility] [phone] documented in this encounter [facility] 02-11-2024 Miscellaneous Notes Patient discharged with all belongings via wheelchair by staff to private residence. Automotive Software Engineer provided patient with AVS. Automotive Software Engineer educated patient on entire AVS, including but [...] & FWW Patient will demonstrate ability to cotton picker object from the floor with supervision and LRAD in order to promote independence in the home and demonstrate functional balance improvements in the rehabilitation program. Supervision with radiology physician & FWW Patient will perform car transfer [...] setting. NT Patient will demonstrate ability to cotton picker object from the floor with supervision and LRAD in order to promote independence in the home and demonstrate functional balance improvements in the rehabilitation program. SBA to CGA with radiology physician & FWW Patient will perform car transfer [...] and treatment assumed from JANN Welch/L at [facility]. JANN Travis/Karin 01/26/2024 Problem: Adult Inpatient Plan [...] Outcome: Progressing Report received from ALLY Gomez, shift foreman. Patient up in recliner. Awake but drowsy. [...] Optimal Mobility Outcome: Progressing Patient transferred to [facility]. Does not follow TTWB precautions. Becomes upset [...] alarm in place. documented in this encounter [facility] 02-11-2024 Miscellaneous Notes Patient discharged with all belongings via wheelchair by staff to private residence. Automotive Software Engineer provided patient with AVS. Automotive Software Engineer educated patient on entire AVS, including but [...] & FWW Patient will demonstrate ability to cotton picker object from the floor with supervision and LRAD in order to promote independence in the home and demonstrate functional balance improvements in the rehabilitation program. Supervision with radiology physician & FWW Patient will perform car transfer [...] setting. NT Patient will demonstrate ability to cotton picker object from the floor with supervision and LRAD in order to promote independence in the home and demonstrate functional balance improvements in the rehabilitation program. SBA to CGA with radiology physician & FWW Patient will perform car transfer [...] 02/01 to transport her fellow up to [facility]. Dr Gomez rounding on patient. Problem: Adult [...] and treatment assumed from JANN Welch/Karin at [facility]. YASH Travis 01/26/2024 Problem: Adult Inpatient Plan [...] Outcome: Progressing Report received from ALLY Gomez, shift foreman. Patient up in recliner. Awake but drowsy. [...] Optimal Mobility Outcome: Progressing Patient transferred to [facility]. Does not follow TTWB precautions. Becomes upset [...] alarm in place. documented in this encounter [facility] 02-11-2024 History of Presen t [...] mg, 650 mg, Oral, Q4H PRN, Mohan Gomze MD, 650 mg at 02/07/24 0908 Allopurinol [...] Date: 01/19/2024 Date of Evaluation: 49:54 PM [facility] LOS: 22 days IMPRESSION AND PLAN: 83 [...] In process LABS Labs-ABGs Labs-CBC @CBCBRIEFROUNDS@ Labs-Chem 7([facility]) Bun/Creat/Cl/CO2/Glucose: 19/0.80/105/29/97 (02/10 436) Na/K+/Phos/Mg/Ca: 135/4.3/--/--/8.8 [...] bilateral inner thigh areas have improved. Are atmospheric drier tender. Less irritation and pain. Patient was using [...] CARE Score - Sit to Stand 5 Chair/Waa-jt-Ffapo Transfer Assistance Needed Set-up / clean-up;Adaptive equipment Physical Assistance Level No physical assistance CARE Score - Chair/Poo-zf-Wmftp Transfer 5 Toilet Transfer Assistance Needed Set-up [...] Date: 01/19/2024 Date of Evaluation: 1:47 PM [facility] LOS: 21 days IMPRESSION AND PLAN: 83 [...] In process LABS Labs-ABGs Labs-CBC @CBCBRIEFROUNDS@ Labs-Chem 7([facility]) Bun/Creat/Cl/CO2/Glucose: 20/0.90/104/28/103 (02/08 449) Na/K+/Phos/Mg/Ca: 135/4.5/--/--/9.1 [...] Date: 01/19/2024 Date of Evaluation: 47:58 PM [facility] LOS: 20 days IMPRESSION AND PLAN: 83 [...] In process LABS Labs-ABGs Labs-CBC @CBCBRIEFROUNDS@ Labs-Chem 7([facility]) Bun/Creat/Cl/CO2/Glucose: 14/0.80/104/30/96 (02/07 450) Na/K+/Phos/Mg/Ca: 133/4.3/--/--/8.9 [...] 2 tablet, 2 tablet, Oral, Q12H, Mohan Gomze MD, 2 tablet at 02/06/242156 Tolterodine (DETROL-LA) [...] Date: 01/19/2024 Date of Evaluation: 1:21 PM [facility] LOS: 19 days IMPRESSION AND PLAN: 83 [...] a 83 y.o. female was admitted to [facility] for: 1. S/P total left hip arthroplasty 2. Status post total replacement of left hip Nutrition Assessment Subjective assessment / comments: Pt has been admitted to swing bed for strengthening/rehab needs 2/2 s/p hip arthroplasty by Dr. Heredia. Patient with fair oral intakes noted and mentioned to FNS resource conservation manager the was getting tired of same [...] (227 lb) 12/01/23 103 kg (227 lb) [place] body weight: 54.7 kg (120 lb 9.5 [...] WBC 5.1 02/07/2024 RBC 3.23 (L) 02/07/2024 [id number] 16.9 01/20/2024 PMH & PSH: Past Medical [...] Transfer Skill: Sit To Stand, Rehab Eval Towns (Sit-Stand Transfers) supervision Physical Assist/Nonphysical Assist: Sit/Stand supervision Weight-Bearing Restrictions: Sit/Stand toe touch weight-bearing Assistive Device For Transfer: Sit/Stand 2 wheeled walker Gait Skills, PT Eval Level of Towns: Gait supervision Physical Assist/Nonphysical Assist: Gait 1 [...] reach. DAILY PROGRESS NOTE Admit Date: 01/19/2024 [facility] LOS: 19 days IMPRESSION AND PLAN: 83 [...] In process LABS Labs-ABGs Labs-CBC @CBCBRIEFROUNDS@ Labs-Chem 7([facility]) Bun/Creat/Cl/CO2/Glucose: 17/0.80/104/29/100 (02/05 453) Na/K+/Phos/Mg/Ca: 135/4.4/--/--/8.6 [...] to maintain TTWB on LLE pt ambulated [id number] and [id number] with X1 seated rest; pt [...] the wound which is ongoing. Wound is atmospheric drier tender but still has mild erythema. No pain reported. No drainage noted. Patient states that she ate very well yesterday as family broad an [employer] food for her. She did have 1 [...] cream 1 Application, 1 Application, Topical, Q12H, Mhoan Gomez MD, 1 Application at 02/06/24 0843 [...] Date: 01/19/2024 Date of Evaluation: 0:47 PM [facility] LOS: 17 days IMPRESSION AND PLAN: [...] In process LABS Labs-ABGs Labs-CBC @CBCBRIEFROUNDS@ Labs-Chem 7([facility]) Bun/Creat/Cl/CO2/Glucose: 14/0.80/104/30/101 (02/04 525) Na/K+/Phos/Mg/Ca: 135/4.3/--/--/8.8 [...] Transfer Skill: Sit To Stand, Rehab Eval Towns (Sit-Stand Transfers) contact guard Physical Assist/Nonphysical Assist: Sit/Stand verbal cues;supervision Transfer Skill: Toilet Transfer, Rehab Eval Assistive Device grab bars;2 wheeled walker Grooming Towns Level (Grooming) grooming skills;hair care, combing/brushing;wash face, hands;contact guard assist (CGA while standing at sink with mod cues to facilitate TTWB.) Physical Assist/Nonphysical Assist supervision;verbal cues Lower Body Dressing Level of Towns contact guard Physical Assist/Nonphysical Assist supervision;verbal cues Assistive Device radiology physician Toileting Level of Towns contact guard Physical Assist/Nonphysical Assist supervision;verbal cues [...] 0 Pt finishing with PRAKASH when this COMMERCIAL SALES SPECIALIST arrived; COMMERCIAL SALES SPECIALIST observed pt being increasingly rude and aggravated with PRAKASH; pt asked if she needed a break or if she was willing to work with this COMMERCIAL SALES SPECIALIST pt stated No! I guess Ill do it now and get it over with but I'm not doing anything that I dont have to; dont ask me to do extra ; therapist asked pt to assist with moving BLE for supine to sit transfer; pt refused to assist and demanded COMMERCIAL SALES SPECIALIST to move BLE; therapist provided max assist [...] Posterior thigh wounds -wound care consulted -Offloading Jnaet Moreno MD DAILY PROGRESS NOTE ] Admit Date: 01/19/2024 [facility] LOS: 17 days IMPRESSION AND PLAN: 83 [...] In process LABS Labs-ABGs Labs-CBC @CBCBRIEFROUNDS@ Labs-Chem 7([facility]) Bun/Creat/Cl/CO2/Glucose: 18/0.80/104/31/96 (02/03 525) Na/K+/Phos/Mg/Ca: 136/4.4/--/--/8.8 [...] Date: 01/19/2024 Date of Evaluation: 411:05 PM [facility] LOS: 15 days IMPRESSION AND PLAN: 83 [...] In process LABS Labs-ABGs Labs-CBC @CBCBRIEFROUNDS@ Labs-Chem 7([facility]) Bun/Creat/Cl/CO2/Glucose: 17/0.90/104/29/100 (02/03 552) Na/K+/Phos/Mg/Ca: 135/4.4/--/--/9.1 [...] MaxA+2.Attempted to have pt try using leg obiee consultant although pt stated I can't when asked [...] with SBA-CGA for balance using FWW and radiology physician with set up while seated. Donned underwear using radiology physician while seated and SBA-CGA to don over waist using FWW. CARE Score - Lower Body Dressing 4 Putting On/Taking Off Footwear Assistance Needed Physical assistance Physical Assistance Level Total assistance Comment Declined use of equipment CARE Score - Putting On/Taking Off Footwear 1 Toileting Hygiene Assistance Needed Incidental touching;Adaptive equipment Comment SBA-CGA using FWW CARE Score - Toileting Hygiene 4 Chair/Ruv-px-Tlwgf Transfer Assistance Needed Incidental touching;Adaptive equipment Comment SBA-CGA using FWW (initial CGA, as first time standing from chair this AM per pt report) CARE Score - Chair/Evq-hl-Allfk Transfer 4 Toilet Transfer Assistance Needed Incidental [...] 100 mg, 100 mg, Oral, Q12H, Mohan Gomze MD, 100 mg at 02/03/24 0942 ferrous [...] determination is still pending. Cuate agreeable for psychotherapist social worker to update her once insurance determination is known. CM will continue to follow. MATT Suarez 02/03/2024 8:17 AM DAILY PROGRESS NOTE Admit Date: 01/19/2024 Date of Evaluation: 0:41 PM [facility] LOS: 14 days IMPRESSION AND PLAN: 83 [...] In process LABS Labs-ABGs Labs-CBC @CBCBRIEFROUNDS@ Labs-Chem 7([facility]) Bun/Creat/Cl/CO2/Glucose: 18/0.90/103/30/103 (02/01 514) Na/K+/Phos/Mg/Ca: 134/4.2/--/--/8.9 [...] 17 g, 17 g, Oral, TID PRN, Mohna Gomez MD senna-docusate (SENOKOT-S) 8.6-50 MG per [...] Date: 01/19/2024 Date of Evaluation: 49:41 PM [facility] LOS: 13 days IMPRESSION AND PLAN: 83 [...] Surgical Final Report Patient Name: CUATE GOODMAN [facility]. Rec. #: [id number] Physician: ERIK HEREDIA Specimen(s) Received Left femoral [...] articular cartilage degeneration. Sectioning reveals unremarkable bone. Cinder Block Mason sections are submitted in one cassette and placed in decalcification solution prior to processing. Billing Fee Code(s) A: 13647, 67880 WBC (WHITE BLOOD COUNT) 01/12/2024 10.5 3.6 [...] and . LABS Labs-ABGs Labs-CBC @CBCBRIEFROUNDS@ Labs-Chem 7([facility]) Bun/Creat/Cl/CO2/Glucose: 14/0.90/103/28/98 (01/31 434) Na/K+/Phos/Mg/Ca: 133/4.4/--/--/8.9 [...] alarm flashing green and all needs met. COLOR MAKER DYER made aware pt needs assistance with donning [...] wheeled walker;other (see comment) (Pt used leg obiee consultant for car transfers.) Gait Assessment Gait Comments [...] Assistance Level No physical assistance Comment using radiology physician pt picked up 4 items off the [...] Date: 01/19/2024 Date of Evaluation: 2:14 AM [facility] LOS: 13 days IMPRESSION AND PLAN: 83 [...] Patient Name: CUATE GOODMAN Med. Rec. #: [id number] Physician: ERIK HEREDIA Specimen(s) Received Left femoral [...] articular cartilage degeneration. Sectioning reveals unremarkable bone. Cinder Block Mason sections are submitted in one cassette and placed in decalcification solution prior to processing. Billing Fee Code(s) A: 67195, 29986 WBC (WHITE BLOOD COUNT) 01/12/2024 10.5 3.6 [...] and . LABS Labs-ABGs Labs-CBC @CBCBRIEFROUNDS@ Labs-Chem 7([facility]) Bun/Creat/Cl/CO2/Glucose: 06/18.10/102/33/94 (01/31 612) Na/K+/Phos/Mg/Ca: 134/4.5/--/--/8.7 [...] and treatment transferred to JANN Welch/Karin at [facility]. YASH Travis 01/31/2024 01/31/24 1415 Physical Therapy [...] Date: 01/19/2024 Date of Evaluation: :41 PM [facility] LOS: 11 days IMPRESSION AND PLAN: 83 [...] Surgical Final Report Patient Name: CUATE GOODMAN [facility]. Rec. #: [id number] Physician: ERIK HEREDIA Specimen(s) Received Left femoral [...] articular cartilage degeneration. Sectioning reveals unremarkable bone. Cinder Block Mason sections are submitted in one cassette and placed in decalcification solution prior to processing. Billing Fee Code(s) A: 42021, 10737 WBC (WHITE BLOOD COUNT) 01/12/2024 10.5 3.6 [...] and . LABS Labs-ABGs Labs-CBC @CBCBRIEFROUNDS@ Labs-Chem 7([facility]) Bun/Creat/Cl/CO2/Glucose: 04/18.00/101/31/93 (01/29 415) Na/K+/Phos/Mg/Ca: 135/4.4/--/--/8.6 [...] aware of pt not feeling well. RiyaDEVIN Toeldo 01/30/2024 01/30/24 0931 Physical Therapy Minutes Start [...] 1.00 01/30/2024 GLUCOSE 93 01/30/2024 Micro C [facility] 02-02-2024 History of Presen t illness Narrative Ortho Nurse - Established Patient Intake Room#: Cast room Patient is an 83 year old female who arrives in a wheel chair for her 3 week follow up after LHTA-AL on 01/11/24. She states she is not in any pain today and states her pain is controlled well. She is using [place] codone acetaminophen for pain relief as well as Tylenol prn. Her leg is wrapped instead of JOSAFAT hose and she is using Eliquis for DVT preventation. She is following touch down weight bearing protocol. Date: 02/02/2024 11:34 AM Patient: Cuate Goodman MR#: [id number] : 1940 Age: 83 y.o. Referring Physician: [...] Gomez MD, 5 mg at 02/02/24 0836 [[facility] - Suspended Admission] bisacodyl (DULCOLAX) suppository 10 mg, 10 mg, Rectal, Daily PRN, Mohan Gomez MD [[facility] - Suspended Admission] Cyclobenzaprine (FLEXERIL) tablet 5 mg, 5 mg, Oral, Q12H, Mohan Gomze MD, 5 mg at 02/02/24 0836 [[facility] - Suspended Admission] Docusate (COLACE) capsule 100 mg, 100 mg, Oral, Q12H, Mohan Gomez MD, 100 mg at 02/02/24 0836 [[facility] Hold - Suspended Admission] ferrous sulfate tablet 325 mg, 325 mg, Oral, Daily, Mohan Gomez MD, 325 mg at 02/02/24 0836 [[facility] - Suspended Admission] hydroCODone-acetaminophen (NORCO) 5-325 MG per tablet 1 tablet, 1 tablet, Oral, Q4H PRN, Mohan Gomez MD, 1 tablet at 02/01/24 1016 [[facility] - Suspended Admission] hydroCODone-acetaminophen (NORCO) 5-325 MG per tablet 2 tablet, 2 tablet, Oral, Q4H PRN, Mohan Gomez MD, 2 tablet at 02/01/24 2306 [[facility] - Suspended Admission] lactulose (CHRONULAC) oral solution 20 g, 20 g, Oral, TID PRN, Mohan Gomez MD [[facility] - Suspended Admission] Lisinopril (PRINIVIL) tablet 5 mg, 5 mg, Oral, Daily, Mohan Gomez MD, 5 mg at 02/02/24 0835 [[facility] - Suspended Admission] multivitamin tablet 1 tablet, 1 tablet, Oral, Daily, Mohan Gmoez MD, 1 tablet at 02/02/24 0835 [[facility] Hold - Suspended Admission] Nystatin (MYCOSTATIN) oral suspension 500,000 Units, 500,000 Units, Swish & Swallow, 4x daily, Janet Moreno MD, 500,000 Units at 02/02/24 0835 [[facility] - Suspended Admission] Ondansetron (ZOFRAN) tablet 4 mg, 4 mg, Oral, Q4H PRN, Mohan Gomez MD, 4 mg at 02/02/24 0840 [[facility] Hold - Suspended Admission] Pantoprazole (PROTONIX) tablet DR 40 mg, 40 mg, Oral, Daily, Mohan Gomez MD, 40 mg at 02/02/24 0836 [[facility] Hold - Suspended Admission] Polyethylene glycol (MIRALAX) packet 17 g, 17 g, Oral, Q12H, Mohan Gomez MD, 17 g at 01/30/242043 [[facility] Hold - Suspended Admission] Polyethylene glycol (MIRALAX) packet 17 g, 17 g, Oral, TID PRN, Mohan Gomez MD [[facility] Hold - Suspended Admission] senna-docusate (SENOKOT-S) 8.6-50 MG per tablet 2 tablet, 2 tablet, Oral, Q12H, Mohan Gomez MD, 2 tablet at 01/30/242043 [[facility] Hold - Suspended Admission] Tolterodine (DETROL-LA) capsule XL 4 mg, 4 mg, Oral, Daily, Mohan Gomez MD, 4 mg at 02/02/2435 [[facility] Hold - Suspended Admission] Zolpidem (AMBIEN) tablet [...] pain today. She is using Tylenol and Colwell for pain control and Eliquis for DVT prophylaxis along with JOSAFAT hose. She reports she is anxious to get home. Of note, Dr. Moreno was consulted upon arrival to [facility] due to concerns for SSI with [...] arise. All pertinant portions of the clinical product support engineer documentation was reviewed. Paige Damon I have reviewed the findings of the clinical product support engineer and agree with their assessment. 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 She states she is not in any pain today and states her pain is controlled well. She is using [place] codone acetaminophen for pain relief as well as Tylenol prn. Her leg is wrapped instead of JOSAFAT hose and she is using Eliquis for DVT preventation. She is following touch down weight bearing protocol. Date: 02/02/2024 11:34 AM Patient: Cuate Goodman MR#: [id number] : 1940 Age: 83 y.o. Referring Physician: Paige Damon Insurance: Payor: MEDICARE AETNA HMO OR PPO / Plan: MEDICARE [employer] PPO / Product Type: *No Product type* [...] Gomez MD, 5 mg at 02/02/24 0835 [[facility] Hold - Suspended Admission] multivitamin tablet 1 tablet, 1 tablet, Oral, Daily, Mohan Gomez MD, 1 tablet at 02/02/24 0835 [[facility] Hold - Suspended Admission] Nystatin (MYCOSTATIN) oral suspension 500,000 Units, 500,000 Units, Swish & Swallow, 4x daily, Janet Moreno MD, 500,000 Units at 02/02/24 0835 [[facility] Hold - Suspended Admission] Ondansetron (ZOFRAN) tablet 4 mg, 4 mg, Oral, Q4H PRN, Mohan Gomez MD, 4 mg at 02/02/24 0840 [[facility] Hold - Suspended Admission] Pantoprazole (PROTONIX) tablet DR 40 mg, 40 mg, Oral, Daily, Mohan Gomez MD, 40 mg at 02/02/24 0836 [[facility] Hold - Suspended Admission] Polyethylene glycol (MIRALAX) packet 17 g, 17 g, Oral, Q12H, Mohan Gomez MD, 17 g at 01/30/242043 [[facility] Hold - Suspended Admission] Polyethylene glycol (MIRALAX) packet 17 g, 17 g, Oral, TID PRN, Mohan Gomez MD [[facility] Hold - Suspended Admission] senna-docusate (SENOKOT-S) 8.6-50 MG per tablet 2 tablet, 2 tablet, Oral, Q12H, Mohan Gomez MD, 2 tablet at 01/30/242043 [[facility] Hold - Suspended Admission] Tolterodine (DETROL-LA) capsule XL 4 mg, 4 mg, Oral, Daily, Mohan Gomez MD, 4 mg at 02/02/24 0835 [[facility] Hold - Suspended Admission] Zolpidem (AMBIEN) tablet 5 mg, 5 mg, Oral, QHS PRN, Mohan Gomez MD, 5 mg at 02/01/24 2306 Allergies: She is allergic to morphine, oxycodone, and penicillins. documented in this encounter [facility] 01-21-2024 Consult note Associated Order [...] and family if available during consultation process. aJnet Moreno MD documented in this encounter [facility] 01-21-2024 Consult note Associated Order [...] 5 mg, 5 mg, Oral, QHS PRN, Mhoan Gomez MD, 5 mg at 01/20/243 Allergies [...] Janet Moreno MD documented in this encounter [facility] 01-19-2024 History and physical note I saw Cuate Goodman at [facility] Assessment/Plan: 83 y.o. female with history of [...] CREATSERUM 0.70 01/13/2024 documented in this encounter [facility] 01-19-2024 History and physical note I saw Cuate Goodman at [facility] Assessment/Plan: 83 y.o. female with history of [...] CREATSERUM 0.70 01/13/2024 documented in this encounter [facility] 01-19-2024 Nurse Note AVS given by ALLY, all questions addressed and pt stated understanding. Assessment unchanged and no complaints. Patient taken to swing bed by [facility] transportation. Per request of swing bed IV in right wrist left in flushed and locked with alcohol cap. Paperwork sent with transport and report given. [facility] 01-19-2024 Miscellaneous Notes AVS given [...] Called report to Nisha HERNANDEZ at swing [facility]. Transport set up. Problem: Adult Inpatient Plan [...] change noted from previous assessment by this SILICA SPRAY MIXER unless otherwise detailed in coordinating flow sheets. [...] her dinner order was called in by COLOR MAKER DYER. Denies additional needs at this time, call [...] insurance approval for the Swing Unit in [place]. Call haddad in hand. Assessment is complete [...] in bed. Assessment remains unchanged from previous. Automotive Software Engineer redresses avril wraps to BLE. Call light [...] this time. Call light is in reach. Automotive Software Engineer reviews charting by Madelenie CANALES, typewriter assembly and parts inspector agrees [...] and she startled awake. Patient asked for Colwell and was told she was not due [...] Call light is in reach. [address] FARMER VEGETABLE rounding. He discussed the quality of her bone from in the OR and the slight intraoperative fracture and the strict precautions including global and TDWB resulting ti the need for a SNF on discharge. Cuate extremely addiment I am not going to a senior care. I'm going home . Ave explained after [...] Pt c/o 10/10 pain to left hip. Colwell given - see MAR. Pt denies any further needs at this time. Call light within reach. Pt assessment remains unchanged with any exceptions noted in flowsheets. Pt is resting in bed, respirations even and unlabored. Fresh ice pack applied to left hip. DEYSI dressing intact and flashing green. Pt c/o 8/10 pain to left hip, Colwell given - see MAR. Pt denies any [...] liquid menu with patient. Patient requested lemon [place] soda. Soda given. Encouraged patient to try and rest. Family at the bedside. Safety education given. Call light within reach. Bed alarm set. Abductor pillow in place. Ice pack to Left hip POST OPERATIVE/PROCEDURE NOTE Cuate Goodman 83 y.o. female [id number] SURGEON Surgeons and Role: * Erik Heredia MD - Primary JOURNEYMAN TOOL AND DIE MAKER RENE Monique ANESTHESIOLOGIST FARM SERVICE CONSULTANT: JEFFREY Denny SURGICAL STAFF Bank Note Designer: Shantell Flood, RN; Rebecca Baltazar, RN; Magdalene Gilbert, RN Nurse Practitioner: RENE Monique Completions Manager: Delores German Scrub Person: SALLY Kilgore; Zari [...] Implant Name Type Inv. Item Serial No. Funeral Attendant Lot No. LRB No. Used Action [place] Gription Acetabular Shell Sector 52mm OD [employer] [id number] Left 1 Implanted [place] ALTRX Polyethylene Acetabular Liner Neutral 36mm ID 52mm OD [employer] [id number] Left 1 Implanted Cementralizer Stem Centralizer 10.5mm Cemented [employer] [id number] Left 1 Implanted [place] Femoral Stem 12/14 Taper Cemented Size 5 STD 120mm [employer] [id number] Left 1 Implanted [place] LV 1x40 [id number] Left 1 Implanted [place] LV 1x40 [id number] Left 1 Implanted [place] R 1x40 [id number] Left 1 Implanted Biolox Delta Ceramic Femoral Head +1.5 36mm MERLYN 12/14 Taper [employer] [id number] Left 1 Implanted Suture [place], BioComposite Corkscrew FT,Vented with 1.3mm White/blue and white/black suture tape ARTHREX [id number] Left 1 Implanted Ti Trochanteric Reattachment Device w/Cables/Standard-Ster [employer] [id number] Left 1 Implanted SPECIMENS ID Type Source Tests Collected by Time Destination 1 : Left Femoral head Permanent TISSUE SURGICAL PATHOLOGY REQUEST Erik Heredia MD 01/11/[address], WASTE REDUCTION COORDINATOR-FARMER VEGETABLE January 11, 2024 5:48 PM 12/16/23 5679 Information Source Information Source patient Contact Information Housesmith Name Chelsea Menezes RN Living Environment Lives [...] Employment/Financial Employed? Retired Initial Discharge Planning DME (COMMERCIAL SALES SPECIALIST) Walker (has FWW) CM met with patient this date to discuss post-surgical discharge plans. Patient states that return home with family assist. Patient has wheeled walker. Patient denies any other questions or needs at this time. CM to continue to follow and assist with discharge plans. documented in this encounter [facility] 01-19-2024 Nurse Note Per patients request called and let contact Sonal daughter know her mother is transferring to swing bed. [facility] 01-19-2024 Nurse Note Called report to Nisha HERNANDEZ at swing bed. Transport set up. [facility] 01-19-2024 Plan of care note [...] Health and Integrity Outcome: Adequate for Discharge [facility] 01-19-2024 Nurse Note No change noted from previous assessment by this SILICA SPRAY MIXER unless otherwise detailed in coordinating flow sheets. Patient denies any needs at this time. Call light in reach. T [facility] 01-19-2024 Hospital course Narrative Images [...] Preop EKG at baseline. Known diastolic dysfunction. Full Stack Python Developer did clear her for surgery. She had [...] Surgical Final Report Patient Name: CUATE GOODMAN [facility]. Rec. #: [id number] Physician: ERIK HEREDIA Specimen(s) Received Left femoral head Clinical / Pre-Operative Diagnosis Osteoarthritis of left hip unspecified osteoarthritis type Post-Operative Diagnosis Not provided Surgical Procedure Arthroplasty hip total latera approach Diagnosis: Left femoral head, Excision: -Consistent with degenerative joint disease Electronically Signed [facility]/01/13/2024 Khoa Vieyra DO Gross Description: The specimen is received in formalin, and labeled left gary stacy, Cuate Goodman and date of 1940. The specimen consists of a femoral head and neck measuring 5.5 x 5 x 5 cm with articular cartilage degeneration. Sectioning reveals unremarkable bone. Cinder Block Mason sections are submitted in one cassette and placed in decalcification solution prior to processing. Billing Fee Code(s) A: 64086, 00149 HEENT: NC/AT, PERRLA, EOMI, fundi benign, external [...] about: Should I take this medication? Follow-up: [place] [address] Follow up [facility] Upcoming Appointments (up to five)-Some appointments for Medical Center outpatient clinics or diagnostic testing locations are not displayed below Provider Department Dept Phone 02/02/2024 11:30 AM Paige Damon [facility] [phone] documented in this encounter [facility] 01-19-2024 Nurse Note Talisha Damon CNP updated that patient can be discharged to Swing Bed today. [facility] 01-19-[address] Monte updated that auth came through and pt can be discharged to Swing bed today, No new orders at this time. [facility] 01-19-2024 History of Presen t [...] on commode with use of grab bars. COMMERCIAL SALES SPECIALIST assisted pt with removing breif and pts gown noted to be wet. COLOR MAKER DYER called in and assisted pt with gown change. Pt able to void and then pt compelted STS to FWW, Christina x1 and pt able to provide self pericare with this COMMERCIAL SALES SPECIALIST providing support with no major LOB noted. Pt then ambulated back into room for approx 10ft and pt states beginning to feel a little dizzy and asking to have bedside chair placed behind pt and then pt transfered to sitting in bedside chair. This COMMERCIAL SALES SPECIALIST supporting L LE while reclining chair and [...] Transfer Skill: Sit To Stand, Rehab Eval Towns (Sit-Stand Transfers) minimum assist (75% patient effort) Physical Assist/Nonphysical Assist: Sit/Stand 1 person assist Weight-Bearing Restrictions: Sit/Stand toe touch weight-bearing Assistive Device For Transfer: Sit/Stand 2 wheeled walker Gait Skills, PT Eval Level of Towns: Gait minimum assist (75% patients effort) Physical Assist/Nonphysical Assist: Gait 1 person assist Weight-Bearing Restrictions: Gait toe touch weight-bearing Assistive Device For Transfer: Gait 2 wheeled walker Gait Distance (10ft x2) Gait Analysis, PT Eval Gait Pattern Used swing-to gait Stair Negotiation Towns Level: Stair Negotiation unable to assess Plan [...] this time to adminster medication and this COMMERCIAL SALES SPECIALIST assisted pt with placing ice pack on [...] waiting on insurance auth to transfer to [facility], this nurse informed that social work has reached out to [facility] to see progress on auth. Will update [...] standing to FWW with Christina x1 and COLOR MAKER DYER providing pt with pericare and placing new brief and purewick catheter. Pt then ambulated approx 8ft out of bathroom and states that she would need the chair placed behind her d/t fatigue. Chair placed behind pt and pt transfered to seated position. MAxA x2 for repositoining pt further back into chair. SCD placed on L LE and ice pack applied to L hip.Salina rolled placed on lateral side of L LE to promote proper positoining to follow global hip precautions. Pt states feeling very comfortable in this position. Call light left within reach at end of therapy session. Transfer Skill: Sit To Stand, Rehab Eval Towns (Sit-Stand Transfers) minimum assist (75% patient effort) Physical Assist/Nonphysical Assist: Sit/Stand 1 person assist Weight-Bearing Restrictions: Sit/Stand toe touch weight-bearing Assistive Device For Transfer: Sit/Stand 2 wheeled walker Gait Skills, PT Eval Level of Towns: Gait minimum assist (75% patients effort) Physical Assist/Nonphysical Assist: Gait 1 person assist Weight-Bearing Restrictions: Gait toe touch weight-bearing Assistive Device For Transfer: Gait 2 wheeled walker Gait Distance (25ft, 10ft, 8ft) Stair Negotiation Towns Level: Stair Negotiation unable to assess Plan [...] Transfer Skill: Sit To Stand, Rehab Eval Towns (Sit-Stand Transfers) moderate assist (50% patient effort) Physical Assist/Nonphysical Assist: Sit/Stand 1 person assist Weight-Bearing Restrictions: Sit/Stand toe touch weight-bearing Assistive Device For Transfer: Sit/Stand 2 wheeled walker Gait Skills, PT Eval Level of Towns: Gait (Patient refuses to attempt due to [...] time preferred Lower Body Dressing Level of Towns (declned to complete) Clinical Impression Co-evaluation/co-treatment performed? No simultaneous skilled care performed Patient Instruction/Education comments continued education to ensure safe ADL participation and functional transfers; HEP Therapy Frequency 6 times a week (frequency change due to patient making good progress towards goals and awaiting placement for rehab prior to dc home) Therapist Information License # [id number] 01/15/24 0955 Time In/Out Time In 0955 [...] Transfer Skill: Sit To Stand, Rehab Eval Towns (Sit-Stand Transfers) minimum assist (75% patient effort) Physical Assist/Nonphysical Assist: Sit/Stand 1 person assist Weight-Bearing Restrictions: Sit/Stand toe touch weight-bearing Assistive Device For Transfer: Sit/Stand 2 wheeled walker Gait Skills, PT Eval Level of Towns: Gait minimum assist (75% patients effort) Physical [...] on global hip precautions Maintain frequency yes WOOL GROWER spoke with Swing Bed. Insurance authorization still pending. WOOL GROWER met with patient and son, questions answered. WOOL GROWER to follow. 01/14/24 0830 Time In/Out Time [...] Pt with extended time on commode with COLOR MAKER DYER providing pt with changing purewick and changing [...] Transfer Skill: Sit To Stand, Rehab Eval Towns (Sit-Stand Transfers) minimum assist (75% patient effort) Physical Assist/Nonphysical Assist: Sit/Stand 1 person assist Weight-Bearing Restrictions: Sit/Stand toe touch weight-bearing Assistive Device For Transfer: Sit/Stand 2 wheeled walker Gait Skills, PT Eval Level of Towns: Gait minimum assist (75% patients effort) Physical Assist/Nonphysical Assist: Gait 1 person assist Weight-Bearing Restrictions: Gait toe touch weight-bearing Assistive Device For Transfer: Gait 2 wheeled walker Gait Distance (10ft x2) Gait Analysis, PT Eval Gait Pattern Used swing-to gait Stair Negotiation Towns Level: Stair Negotiation unable to assess Plan [...] with Christina x2 with pt using leg obiee consultant on L LE with good technique demonstrated [...] Supine to Sit, Rehab Eval Level of Towns: Supine/Sit minimum assist (75% patients effort) (leg obiee consultant on L LE) Physical Assist/Nonphysical Assist: Supine/Sit 2 person assist Transfer Skill: Sit To Stand, Rehab Eval Towns (Sit-Stand Transfers) minimum assist (75% patient effort) Physical Assist/Nonphysical Assist: Sit/Stand 2 person assist Weight-Bearing Restrictions: Sit/Stand toe touch weight-bearing Assistive Device For Transfer: Sit/Stand 2 wheeled walker Gait Skills, PT Eval Level of Towns: Gait minimum assist (75% patients effort) Physical Assist/Nonphysical Assist: Gait 2 person assist Weight-Bearing Restrictions: Gait toe touch weight-bearing Assistive Device For Transfer: Gait 2 wheeled walker Gait Distance 5 feet (chair to bed) Gait Analysis, PT Eval Gait Pattern Used swing-to gait Stair Negotiation Towns Level: Stair Negotiation unable to assess Plan [...] Sit to Supine, Rehab Eval Level of Towns: Sit/Supine maximum assist (25% patients effort) Physical Assist/Nonphysical Assist: Sit/Supine 2 person assist Transfer Skill: Sit To Stand, Rehab Eval Towns (Sit-Stand Transfers) minimum assist (75% patient effort) Physical Assist/Nonphysical Assist: Sit/Stand 2 person assist Weight-Bearing Restrictions: Sit/Stand toe touch weight-bearing Assistive Device For Transfer: Sit/Stand standard walker Gait Skills, PT Eval Level of Towns: Gait minimum assist (75% patients effort) Physical [...] to progress overall mobility Patient referral to [place] was faxed, waiting on that swing bed in [place] called and has a bed open, spoke [...] Orders Procedures DIET REGULAR Please provide one [place] Ensure Max over ice at 1430 daily [...] swing bed, no beds available , contacted [place] per patients request and no beds available there. Daughter ten did recommend the [facility] in [facility], I did reach out to them and [...] Laterality: Left; Surgeon: Erik Heredia MD; Location: [facility] OR NEPHRECTOMY Right 1976 CHOLECYSTECTOMY HIP [...] Supine to Sit, Rehab Eval Level of Towns: Supine/Sit moderate assist (50% patients effort) Physical Assist/Nonphysical Assist: Supine/Sit 1 person assist Transfer Skill: Sit To Stand, Rehab Eval Towns (Sit-Stand Transfers) moderate assist (50% patient effort) Physical Assist/Nonphysical Assist: Sit/Stand 2 person assist Weight-Bearing Restrictions: Sit/Stand toe touch weight-bearing Assistive Device For Transfer: Sit/Stand standard walker Gait Skills, PT Eval Level of Towns: Gait minimum assist (75% patients effort) Physical [...] educated on hip precautions, use of leg obiee consultant and weight bearing status. Pt educated to [...] Muscle Testing (MMT) Dominant Hand right Hand Didactic Program In Dietetics Director, Right moderate Hand Didactic Program In Dietetics Director, Left moderate Bed Mobility Skill: Supine to Sit, Rehab Eval Level of Towns: Supine/Sit minimum assist (75% patients effort) Physical Assist/Nonphysical Assist: Supine/Sit 1 person assist Transfer Skill: Sit to Stand, Rehab Eval Level of Towns: Sit/Stand moderate assist (50% patients effort) Physical Assist/Nonphysical Assist: Sit/Stand 2 person assist Weight-Bearing Restrictions: Sit/Stand toe touch weight-bearing Assistive Device for Transfer: Sit/Stand standard walker Transfer Skill: Toilet Transfer, Rehab Eval Assistive Device standard walker BADL Evaluation Additional Documentation Yes Upper Body Dressing Level of Towns minimum assist (75% patients effort) Lower Body Dressing Level of Towns (refused to practice) Toileting Level of Towns (refused, reports wanting to use purwick only) Grooming Towns Level (Grooming) grooming skills;wash face, hands;set up [...] sit min A x1 person, with leg obiee consultant and head of bead elevated. Pt able [...] and functional transfers Therapist Information License # [id number] Pt will complete LB dressing with min [...] WITH DR HEREDIA. documented in this encounter [facility] 01-19-2024 Nurse Note Patient resting in bed. Assessment remains unchanged from previous. Call light is within reach. [facility] 01-19-2024 Nurse Note Pt resting in the chair. Assessment remains unchanged from previous. Pt's SPO2 is 84% on room air, so patient is put on 2L nasal cannula and SPO2 is now 90%. Call light is within reach. [facility] 01-19-2024 Nurse Note DEYSI dressing is no longer flashing, typewriter assembly and parts inspector removes it per ortho note. Incision is CDI. Ice pack applied. [facility] 01-18-2024 Nurse Note Remains up in recliner. No change noted from previous assessment by this RN unless otherwise detailed in coordinating flow sheets. PRN ultram given per order for c/o left hip and torso pain. States her dinner order was called in by COLOR MAKER DYER. Denies additional needs at this time, call light in reach, recliner wheels locked. [facility] 01-18-2024 Plan of care note Problem: Adult Inpatient Plan of Care Goal: Plan of Care Review Outcome: Progressing Goal: Patient-Specific Goal (Individualized) Outcome: Progressing Goal: Absence of Hospital-Acquired Illness or Injury Outcome: Progressing Goal: Optimal Comfort and Wellbeing Outcome: Progressing Goal: Readiness for Transition of Care Outcome: Progressing Problem: Skin Injury Risk Increased Goal: Skin Health and Integrity Outcome: Progressing [facility] 01-18-2024 Nurse Note Remains up in recliner. No change noted from previous assessment by this RN unless otherwise detailed in coordinating flow sheets. Denies additional needs at this time, call light in reach, recliner wheels locked. [facility] 01-18-2024 Consult note Formatting of th is note is different from the original. Medical consultation Patient is a week postop total hip arthroplasty. No new complaints. Pain is adequately controlled. Therapy is progressing. Awaiting approval from insurance for swing bed. Known right bundle branch block. Preop EKG at baseline. Known diastolic dysfunction. Full Stack Python Developer did clear her for surgery. She had [...] Surgical Final Report Patient Name: CUATE GOODMAN [facility]. Rec. #: [id number] Physician: ERIK HEREDIA Specimen(s) Received Left femoral [...] articular cartilage degeneration. Sectioning reveals unremarkable bone. Cinder Block Mason sections are submitted in one cassette and placed in decalcification solution prior to processing. Billing Fee Code(s) A: 77154, 10615 HEENT: NC/AT, PERRLA, EOMI, fundi benign, external [...] minutes total time. Luis Monte MD 01/18/2024 [facility] 01-18-2024 Consult note Formatting of th is note is different from the original. Medical consultation Patient is a week postop total hip arthroplasty. No new complaints. Pain is adequately controlled. Therapy is progressing. Awaiting approval from insurance for swing bed. Known right bundle branch block. Preop EKG at baseline. Known diastolic dysfunction. Full Stack Python Developer did clear her for surgery. She had [...] Patient Name: CUATE GOODMAN Med. Rec. #: [id number] Physician: ERIK HEREDIA Specimen(s) Received Left femoral [...] articular cartilage degeneration. Sectioning reveals unremarkable bone. Cinder Block Mason sections are submitted in one cassette and placed in decalcification solution prior to processing. Billing Fee Code(s) A: 34087, 64148 HEENT: NC/AT, PERRLA, EOMI, fundi benign, external [...] Preop EKG at baseline. Known diastolic dysfunction. Full Stack Python Developer did clear her for surgery. She had [...] Surgical Final Report Patient Name: CUATE GOODMAN [facility]. Rec. #: [id number] Physician: ERIK HEREDIA Specimen(s) Received Left femoral [...] articular cartilage degeneration. Sectioning reveals unremarkable bone. Cinder Block Mason sections are submitted in one cassette and placed in decalcification solution prior to processing. Billing Fee Code(s) A: 74698, 14091 HEENT: NC/AT, PERRLA, EOMI, fundi benign, external [...] Preop EKG at baseline. Known diastolic dysfunction. Full Stack Python Developer did clear her for surgery. She had [...] Preop EKG at baseline. Known diastolic dysfunction. Full Stack Python Developer did clear her for surgery. She had [...] optimized by her primary care provider and slip cover cutter. Preop testing notable for an INR of [...] Preop EKG at baseline. Known diastolic dysfunction. Full Stack Python Developer did clear her for surgery. She had [...] Partner Violence: Unknown (09/09/2023) Received from [facility] Safety & Environment Fear [...] Monte MD 01/11/2024 documented in this encounter [facility] 01-18-2024 Nurse Note Laying in recliner upon this RN arrival to patient room, resting quietly with eyes closed, respirations even and unlabored. Arouses easily to voice, appropriate to conversation. Shift assessment initiated, detailed in coordinating flow sheets. Denies additional needs at this time, call light in reach, recliner wheels locked. [facility] 01-18-2024 Plan of care note Problem: Adult Inpatient Plan of Care Goal: Plan of Care Review Outcome: Progressing Goal: Patient-Specific Goal (Individualized) Outcome: Progressing Goal: Absence of Hospital-Acquired Illness or Injury Outcome: Progressing Goal: Optimal Comfort and Wellbeing Outcome: Progressing Goal: Readiness for Transition of Care Outcome: Progressing Problem: Skin Injury Risk Increased Goal: Skin Health and Integrity Outcome: Progressing [facility] 01-18-2024 Nurse Note Patient's assessment remains unchanged from previous assessment this shift, any exceptions noted in flowsheets. Patient resting comfortably in chair, declines any needs at this time. Call light within reach,chair alarm active [facility] 01-17-2024 Consult note Formatting of th [...] Preop EKG at baseline. Known diastolic dysfunction. Full Stack Python Developer did clear her for surgery. She had [...] Surgical Final Report Patient Name: CUATE GOODMAN [facility]. Rec. #: [id number] Physician: ERIK HEREDIA Specimen(s) Received Left femoral [...] articular cartilage degeneration. Sectioning reveals unremarkable bone. Cinder Block Mason sections are submitted in one cassette and placed in decalcification solution prior to processing. Billing Fee Code(s) A: 15187, 02415 HEENT: NC/AT, PERRLA, EOMI, fundi benign, external [...] minutes total time. Luis Monte MD 01/17/2024 [facility] 01-17-2024 Nurse Note The top of the right foot is no longer red. Cuate has brisk cap refill on both lower extremities. An avril wrap was applied to Cuate right lower extremity from the toes to her knee. She is currently denying pain. She is watching TV and is pleasant. She is still awaiting insurance approval for the Swing Unit in [place]. Call haddad in hand. [facility] 01-17-2024 Nurse Note Assessment is complete and remains unchanged from previous at this time with any exceptions noted in the flowsheet. Patient denies further needs and is left with call light and personals in reach. [facility] 01-17-2024 Nurse Note Assessment is complete and remains unchanged from previous at this time with any exceptions noted in the flowsheet. Patient denies further needs and is left with call light and personals in reach. [facility] 01-17-2024 Nurse Note Resting in chair. Assessment unchanged from earlier. Call light in reach. [facility] 01-16-2024 Nurse Note Patient remains resting in recliner chair beside of bed. Voices no needs. Was medicated earlier for pain. Assessment unchanged from previous. Ice maintained to left hip. Call light in reach. [facility] 01-16-2024 Plan of care note Problem: [...] rest periods promoted Nutrition Interventions: diet adjusted [facility] 01-16-2024 Nurse Note Afternoon assessment completed. No changes noted. Patient resting with no complaints. Call light and phone within reach. [facility] 01-16-2024 Nurse Note No change noted from previous assessment by this RN unless otherwise detailed in coordinating flow sheets. Patient denies any needs at this time. [facility] 01-16-2024 Nurse Note Assessment unchanged from prior unless otherwise charted. Patient resting in bed, call light within reach, Up In Chair, Patient denies any current needs at this time. [facility] 01-15-2024 Plan of care note Problem: [...] rest periods promoted Nutrition Interventions: diet adjusted [facility] 01-15-2024 Nurse Note Afternoon assessment completed. No changes noted. Patient resting in the chair with no complaints. Call light and phone within reach. [facility] 01-15-2024 Nurse Note No change noted from previous assessment by this RN unless otherwise detailed in coordinating flow sheets. Patient denies any needs at this time. [facility] 01-15-2024 Nurse Note Pt assessment remains [...] at this time. Call light within reach. [facility] 01-15-2024 Nurse Note Pt assessment remains unchanged with any exceptions noted in flowsheets. Pt appears to be sleeping, respirations even and unlabored. Call light within reach. [facility] 01-14-2024 Nurse Note Pt assessment complete and documented in flowsheets. POC reviewed with pt. Pt is alert, respirations even and unlabored. No acute distress observed. Fresh ice pack applied to left hip. DEYSI dressing intact and flashing green. Pt c/o 8 pain to left hip. Tramadol given - see MAR. Pt denies any further needs at this time. Call light within reach. [facility] 01-14-2024 Plan of care note Problem: [...] rest periods promoted Nutrition Interventions: diet adjusted [facility] 01-14-2024 Nurse Note Afternoon assessment completed. No changes noted. Patient resting with no complaints. Call light and phone within reach. [facility] 01-14-2024 Nurse Note No change noted from previous assessment by this RN unless otherwise detailed in coordinating flow sheets. Patient denies any needs at this time. [facility] 01-14-2024 Nurse Note Pt resting in chair. Assessment remains unchanged from previous. Call light is within reach, SCDs are on. [facility] 01-14-2024 Nurse Note Pt resting in bed. Assessment remains unchanged from previous. Automotive Software Engineer redresses avril wraps to BLE. Call light is within reach and bed alarm is on. [facility] 01-13-2024 Nurse Note Updates given to daughter Sonal. She denies any questions or concerns. [facility] 01-13-2024 Consult note Formatting of th [...] Preop EKG at baseline. Known diastolic dysfunction. Full Stack Python Developer did clear her for surgery. She had [...] minutes total time. Luis Monte MD 01/13/2024 [facility] 01-13-2024 Nurse Note No changes noted from previous assessment by this RN except what is detailed in coordinating flow sheets. Patient denies needs at this time. Call light is in reach. [facility] 01-13-2024 Nurse Note Patient denies any pain at this time. Patient denies need for pain medication and states she will call whenever she needs them. Med ULLOA at bedside. No changes noted from previous assessment by this RN except what is detailed in coordinating flow sheets. Patient denies needs at this time. Call light is in reach. [facility] 01-13-2024 Nurse Note Voicemail left for [...] this time. Call light is in reach. [facility] 01-13-2024 Nurse Note Automotive Software Engineer reviews charting by Madeleine CANALES, typewriter assembly and parts inspector agrees with charting. [facility] 01-13-2024 Nurse Note Patient complains of chest pain she describes it as pressure that is moving left. She states it feels like how it fells when I get indigestion . Dr. Monte notified. New orders received. [facility] 01-13-2024 Nurse Note Reassessment complete at this time and remains unchanged from previous. Patient states I slept really well last night. I think the Tramadol helped a lot. Patient rates pain 5/10 and 8/10 with spasms, movement. Patient DEYSI flashing green. Patient denies further needs and is left with call light and personals within reach. [facility] 01-13-2024 Nurse Note Reassessment complete at this time. Patient states Pain is much better. Patient denies any further needs and is left with call light and personals within reach. [facility] 01-12-2024 Consult note Formatting of th [...] Preop EKG at baseline. Known diastolic dysfunction. Full Stack Python Developer did clear her for surgery. She had [...] minutes total time. Luis Monte MD 01/12/2024 [facility] 01-12-2024 Nurse Note Assessment complete at this time with any exceptions noted in the flowsheets. Patient was snoring upon this nurse entering the room. Patient did not awaken to verbal stimulation. This nurse touched patients arm in an attempt to awaken her. Patient was still snoring. This nurse rubbed patient and she startled awake. Patient asked for [place] and was told she was not due for two more hours. Patient agreeable to wait. Patient denies further needs and is left with call light and personals within reach. [facility] 01-12-2024 Nurse Note Patient son's Mat at bedside at this time. This RN questioned if the patient would like PRN pain medication, patient states I'll call you when I want them . Denies needs at this time, call light within reach. [facility] 01-12-2024 Nurse Note No changes noted from previous assessment by this RN except what is detailed in coordinating flow sheets. Patient denies needs at this time. Call light is in reach. T [facility] 01-12-2024 Nurse Note Bilaterally AVRIL wrap applied to lower legs with MARY Mcgee at this time per Randell AVILA. T [facility] 01-12-2024 Hospital Discharg e instructions [...] PM EDT Dr. Heredia's office number is [phone], option #2 for the nurse. If after hours, please contact the main hospital number, and ask for Dr. Heredia's on-call provider. Contact Office ([phone]) if: > Any falls or injuries > [...] be sent through Care Everywhere.acetaminophen and hydrocodone ([place])acetaminophen (oral) ([facility])docusate (oral/rectal) ([facility])apixaban ([facility])Blood Thinners: How to Prevent Bleeding ([facility]) ([facility])documented in this encounter [facility] 01-12-2024 Nurse Note No changes noted from previous assessment by this RN except what is detailed in coordinating flow sheets. Patient denies needs at this time. Call light is in reach. [facility] 01-12-[address] [facility] FARMER VEGETABLE rounding. He discussed the quality of her bone from in the OR and the slight intraoperative fracture and the strict precautions including global and TDWB resulting ti the need for a SNF on discharge. Cuate extremely addiment I am not going to a senior care. I'm going home . Ave explained after PT/OT evaluation today we might to had an additional conversation. Cuate looks to be upset over this visit at this time. The plan for nursing will be to now allow PT/OT to evaluate and clear explain options on discharge. [facility] 01-12-2024 Nurse Note Pt assessment remains unchanged with any exceptions noted in flowsheets. Pt is resting in bed, respirations even and unlabored. Fresh ice pack applied to left hip. DEYSI dressing intact and flashing green. Pt c/o 10/10 pain to left hip. Colwell given - see MAR. Pt denies any further needs at this time. Call light within reach. [facility] 01-11-2024 Nurse Note Pt assessment remains unchanged with any exceptions noted in flowsheets. Pt is resting in bed, respirations even and unlabored. Fresh ice pack applied to left hip. DEYSI dressing intact and flashing green. Pt c/o 8/10 pain to left hip, Colwell given - see MAR. Pt denies any further needs at this time. Call light within reach. [facility] 01-11-2024 Nurse Note Pt assessment complete and [...] at this time. Call light within reach. [facility] 01-11-2024 Progress note Formatting of t his note might be different from the original. Pt nauseated at this time IS not done RN aware and will give medication for nausea and then instruct pt. [facility] 01-11-2024 Consult note Associated Order (s): IP CONSULT TO GENERAL MEDICINE Medical consultation Patient is an 83-year-old female who presents for total hip arthroplasty. She was at her baseline state of health prior to surgery and was medically optimized by her primary care provider and slip cover cutter. Preop testing notable for an INR of [...] Preop EKG at baseline. Known diastolic dysfunction. Full Stack Python Developer did clear her for surgery. She had [...] Violence: Unknown (09/09/2023) Received from [facility] [place] Safety & Environment Fear of [...] minutes total time. Luis Monte MD 01/11/2024 [facility] 01-11-2024 Nurse Note Patient returned to [...] liquid menu with patient. Patient requested lemon nanwalek soda. Soda given. Encouraged patient to try and rest. Family at the bedside. Safety education given. Call light within reach. Bed alarm set. [facility] 01-11-2024 Nurse Note Abductor pillow in place. Ice pack to Left hip [facility] 01-11-2024 Nurse Note Patient transported to PACU with Chava PATHAK. Reports given to Nely HERNANDEZ at 1759H. OR 4 temp 67.2F, humidity 40% documented in this encounter [facility] 01-11-2024 Nurse Surgical operation note Patient transported to PACU with Chava PATHAK. Reports given to Nely HERNANDEZ at 1759H. [facility] 01-11-2024 Surgery Postoperative evaluation and management note POST OPERATIVE/PROCEDURE NOTE Cuate Goodman 83 y.o. female [id number] SURGEON Surgeons and Role: * Erik Heredia MD - Primary JOURNEYMAN TOOL AND DIE MAKER Ave Mackey APRN-MARGARITA ANESTHESIOLOGIST FARM SERVICE CONSULTANT: Chava Linares APRN-ZO SURGICAL STAFF Bank Note Designer: Shantell Flood RN; Rebecca Baltazar RN; Magdalene Gilbert RN Nurse Practitioner: RENE Monique Completions Manager: Delores German Scrub Person: Jolene Sanchez, SALLY; [...] Implant Name Type Inv. Item Serial No. Funeral Attendant Lot No. [id number] No. Used Action [place] Gription Acetabular Shell Sector 52mm OD [employer] [id number] Left 1 Implanted [place] ALTRX Polyethylene Acetabular Liner Neutral 36mm ID 52mm OD [employer] [id number] Left 1 Implanted Cementralizer Stem Centralizer 10.5mm Cemented [employer] [id number] Left 1 Implanted [place] Femoral Stem 12/14 Taper Cemented Size 5 STD 120mm [employer] [id number] Left 1 Implanted [place] LV 1x40 [id number] Left 1 Implanted Palasco LV 1x40 [id number] Left 1 Implanted Palasco R 1x40 [id number] Left 1 Implanted Biolox Delta Ceramic Femoral Head +1.5 36mm MERLYN 12/14 Taper [employer] [id number] Left 1 Implanted Suture [place], [employer] Corkscrew FT,Vented with 1.3mm White/blue and white/black suture tape ARTH[employer] [id number] Left 1 Implanted Ti Trochanteric Reattachment Device w/Cables/Standard-Ster [employer] [id number] Left 1 Implanted SPECIMENS ID Type Source Tests Collected by Time Destination 1 : Left Femoral head Permanent TISSUE SURGICAL PATHOLOGY REQUEST Erik Heredia MD 01/11/2024 1610 RENE Monique January 11, 2024 5:48 PM [facility] 01-11-2024 Nurse Surgical operation note OR 4 temp 67.2F, humidity 40% T [facility] 01-11-2024 Note Shantell Dasilva RN [...] and locked. [X] Tray table within reach. [facility] 01-11-2024 Procedure note Associated Ord [...] locked. [X] Tray table within reach. T [facility] 01-11-2024 Procedure note Associated Ord [...] table within reach. documented in this encounter [facility] 12-22-2023 Note [facility] Note Reason for cardiology [...] block. Echocardiographic study 11/19/[address] [facility] Normal left ventricle systolic function, ejection fraction 50 to 55%, abnormal septal motion, diastolic function is indeterminate Right ventricle appears enlarged with preserved systolic function Mild mitral regurgitation Mild tricuspid rotation Moderately elevated right-sided pressure Mildly dilated ascending aorta 4.21 cm Echo 05/17/[address] [facility] Normal left ventricle systolic function, ejection fraction above 55% Grade 2 diastolic dysfunction Mild mitral rotation Lexiscan nuclear stress test 05/15/[address] [facility] No acute or reversible ischemia Small anterior wall fixed defect versus breast attenuation artifact Normal wall motion and ejection fraction 65%. Thank you Chest CTA 11/09/[address] [facility] Small pulmonary embolus w (more content not included)... [facility] 12-16-2023 Nurse Note 12/16/23 6937 Information Source Information Source patient Contact Information Housesmith Name Chelsea Menezes RN Living Environment Lives [...] Employment/Financial Employed? 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 Patient states that return home with family assist. Patient has wheeled walker. Patient denies any other questions or needs at this time. CM to continue to follow and assist with discharge plans. [facility] 12-01-2023 History of Presen t [...] 12/01/2023 2:14 PM Patient: Cuate Goodman MR#: [id number] : 1940 Age: 83 y.o. Referring Physician: Truman Boo Jr., DO Insurance: Payor: MEDICARE AETNA HMO [place] PPO / Plan: MEDICARE [employer] PPO / Product Type: *No Product type* [...] a left total hip arthroplasty for optimal long term care pharmacist management. PHYSICAL EXAM: This is an alert, [...] joint space, subchondral sclerosis, osteophyte formation, and kscl-im-ckea contact. IMPRESSION: 1.) Severe symptomatic end-stage arthritis, [...] of limb, and ultimately loss of life. prison expectations, risks and general implant survivorship were also discussed. Despite these risks, the patient would like to proceed with surgical planning. Today, we will initiate the pre-surgical process including nasal MRSA screening, scheduling an appointment for [facility] and the potential surgical date, and reviewing [...] Unknown Penicillins Hives documented in this encounter [facility] Evaluation note Diagnosis Pain of left hip- Primary Osteoarthritis of left hip, unspecified osteoarthritis type [facility] S/P total hip arthroplasty- Primary Hip joint replacement by other means Preop testing Preoperative examination, unspecified Pain in other specified joint Osteoarthritis of left hip, unspecified osteoarthritis type Acute postoperative pain of left hip Status post total replacement of left hip [facility] S/P total left hip arthroplasty- Primary [facility] Diagnosis S/P total left hip arthroplasty- Primary S/P total left hip arthroplasty 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 Acquired absence of kidney [facility] S/P total left hip arthroplasty- Primary S/P total left hip arthroplasty 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 Acquired absence of kidney [facility] S/P total left hip arthroplasty- Primary [facility] Primary osteoarthritis of left hip- Primary Primary localized osteoarthrosis, pelvic region and thigh documented in this encounter [facility] Summary Purpose Family History No [...] HIP WITH PELVIS LEFT Erik Heredia MD [address] [place] [address] Referral ID Status Reason Start Date Expiration Date V isits Requested Visits Authorized [id number] New Request 11/19/2023 12/13/2024 1 1 Specialty Diagnoses / Procedures Referred By Abiodun t Referred To Contact Procedures ECG Luis Monte MD [address] [place] [address] Referral ID Status Reason Start Date Expiration Date V isits Requested Visits Authorized [id number] New Request 01/13/2024 02/06/2025 1 1 Specialty Diagnoses / Procedures Referred By Contac t Referred To Contact [facility] REV LOC [address] [place] [address] Referral ID Status Reason Start Date Expiration Date Visits Re quested Visits Authorized Specialty Diagnoses / Procedures Referred By Contac t Referred To Contact Diagnoses S/P total left hip arthroplasty Procedures XR HIP WITH PELVIS LEFT Tonya Paige M [address] [place] [address] Referral ID Status Reason Start Date Expiration Date V isits Requested Visits Authorized [id number] New Request 01/26/2024 02/19/2025 1 1 Referral ID Status Reason Start Date Expiration Date V isits Requested Visits Authorized [id number] New Request 02/17/2024 03/13/2025 1 1 Additional Source Comments INFORMATION SOURCE (unrecogn ized section and content) DATE CREATED AUTHOR 11/20/2022 [facility] DATE CREATED AUTHOR AUTHOR'S ORGANIZ ATION 09/19/2023 [facility] DATE CREATED AUTHOR AUTHOR'S ORGANIZ ATION 11/07/2023 [facility] EPIC DATE CREATED AUTHOR AUTHOR'S ORGANIZ ATION 01/10/2024 [facility] DATE CREATED AUTHOR AUTHOR'S ORGANIZ ATION [facility] DATE CREATED AUTHOR AUTHOR'S ORGANIZ ATION 03/20/2024 [facility] Reason for Visit (unrecogniz ed section and content) Specialty Diagnoses / Procedures Referred By Contac t Referred To Contact Diagnoses Pain of left hip Procedures XR HIP WITH PELVIS LEFT Erik Heredia MD [address] [place] [address] Referral ID Status Reason Start Date Expiration Date V isits Requested Visits Authorized [id number] New Request 11/19/2023 12/13/2024 1 1 Reason Comments Pain Specialty Diagnoses / Procedures Referred By Contac t Referred To Contact Diagnoses Osteoarthritis of left hip, unspecified osteoarthritis type Osteoarthritis of left hip, unspecified osteoarthritis type [M16.12] Procedures [place] ARTHRP ACETBLR/PROX FEM PROSTC AGRFT/ALGRFT ARTHROPLASTY HIP TOTAL LATERAL APPROACH Erik Heredia MD [address] [place] [address] Referral ID Status Reason Start Date Expiration Date Visits Re quested Visits Authorized [id number] 12/06/2023 1 1 Reason Comments Surgical Follow-up 01/11/24 [facility] Specialty Diagnoses / Procedures Referred By Contac t Referred To Contact Diagnoses S/P total left hip arthroplasty Procedures XR HIP WITH PELVIS LEFT Paige Damon [address] [place] [address] Referral ID Status Reason Start Date Expiration Date V isits Requested Visits Authorized [id number] New Request 01/26/2024 02/19/2025 1 1 Referral ID Status Reason Start Date Expiration Date V isits Requested Visits Authorized [id number] New Request 02/17/2024 03/13/2025 1 1 Reason Comments Post Op Visit 01/11/24 Weight beari ng check left total hip arthroplasty Post Op Visit Specialty Diagnoses / Procedures Referred By Abiodun t Referred To Contact Diagnoses Hx of total hip arthroplasty, left Procedures XR HIP WITH PELVIS LEFT Ave Mackey APRN-CNP [address] [place] [address] Referral ID Status Reason Start Date Expiration Date V isits Requested Visits Authorized [id number] New Request 03/07/2024 04/01/2025 1 1 Reason Comments Pain Care Teams (unrecognized sec tion and content) Chronometer Adjuster Relationship Specialty Start Date End Date Truman Boo Jr., DO [address] [facility] [place] [address] [place] [address] PCP - General Orthopaedic Surgery 11/04/23 Chronometer Adjuster Relationship Specialty Start Date End Date Truman Boo Jr., DO [address] [place] [address] PCP - General Orthopaedic Surgery 11/04/23 12/02/23 Chronometer Adjuster Relationship Specialty Start Date End Date Jacob Kuhnbrenda [address] [place] [address] PCP - General Family Medicine 12/03/23 Chronometer Adjuster Relationship Specialty Start Date End Date KuhnTian [address] [place] [address] PCP - General Family Medicine 12/03/23 Chronometer Adjuster Relationship Specialty Start Date End Date KuhnJacob herrerabernda [address] [place] [address] PCP - General Family Medicine 12/03/23 Chronometer Adjuster Relationship Specialty Start Date End Date Jacob Kuhnbrenda [address] [place] [address] PCP - General Family Medicine 12/03/23 Chronometer Adjuster Relationship Specialty Start Date End Date Kuhn Tian, [address] [place] [address] PCP - General Family Medicine 12/03/23 Chronometer Adjuster Relationship Specialty Start Date End Date Tian Kuhn [address] [place] [address] PCP - General Family Medicine 12/03/23 Chronometer Adjuster Relationship Specialty Start Date End Date Tian Kuhn DO [address] [place] [address] PCP - General Family Medicine 12/03/23 Chronometer Adjuster Relationship Specialty Start Date End Date Tian Kuhn DO [address] [place] [address] PCP - General Family Medicine 12/03/23 Scheduled [...] BE BASED ON THE PRIMARY CLINICAL RECORDS. [facility] [employer] [facility] provides no warranty or guarantee of the accuracy or completeness of information in this document.
--- NOTE | 2024-07-18 07:02 | CT_ITS ---
The [address] [address] Patient Name: CUATE GOODMAN MRN: [id number] date: 1940 Sex: F Assigned Patient Location: ER Current Patient Location: ER Accession/Order Number: [id number] Exam Date: 07/18/2024 07:30 Report Date: 07/18/2024 08:02 At the request of: SINDY GOULD Procedure: CT abdomen pelvis wo con EXAM: CT abdomen pelvis wo con HISTORY: lower back COMPARISON: CT abdomen/pelvis dated 01/05/2023. TECHNIQUE: Routine CT abdomen/pelvis without intravenous contrast. FINDINGS: Lung bases: Mild atelectatic densities within both lower lobes. Liver: Unremarkable. Gallbladder/biliary tree: Previous cholecystectomy. There is no significant biliary dilatation. Pancreas: Unremarkable. Spleen: There are a couple calcified splenic granuloma. Adrenal glands: Mild hypertrophy of both adrenal glands. Right kidney: Absence of the right kidney. Left kidney: There is an obstructing 8.3 x 7.2 mm calculus within the proximal left ureter, just distal to the left UPJ with moderate left pelvocaliectasis. There is a 5.9 mm nonobstructive calculus within the left renal pelvis. There is moderate cortical scarring along the contour of the left kidney. There is no mass lesion. There are moderate stranding densities within the left perinephric space and tracking along the left ureter. There is beam hardening artifact from bilateral hip replacements obscuring the distal left ureter and the urinary bladder. Bowel: Nonobstructive bowel gas pattern with a moderate amount of stool within the colon. There are diverticula along the descending and sigmoid colon without diverticulitis. The appendix is not identified. The distal esophagus, stomach and small bowel are unremarkable. Inflammation: There is no free air, free fluid or abscess. Vasculature: Coronary artery and aortic valvular calcification. Mild atheromatous calcification descending thoracic aorta and severe atheromatous calcification abdominal aorta. Moderately severe atheromatous calcification iliac and common femoral arteries. Mild atheromatous calcification celiac trunk and splenic artery. Moderately severe atheromatous calcification superior mesenteric artery and proximal/mid left main renal artery. There is a filter within the IVC below the level of the left renal vein. Lymphadenopathy: There are no pathologically enlarged lymph nodes. Pelvis: The inferior aspect of the pelvis is obscured by beam hardening artifact from bilateral hip replacements. Osseous: The bony structures are osteopenic. Mild discogenic degenerative changes at several levels along the lower thoracic and lumbar spine. There are small bridging paravertebral ossifications along the lower thoracic spine. There is moderate facet arthritis at L4-5 and L5-S1 bilaterally. 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 CT/CT abdomen pelvis wo con IMPRESSION: There is an obstructing 8.3 x 7.2 mm calculus within the proximal left ureter, just distal to the left UPJ with moderate left pelvocaliectasis. There is a 5.9 mm nonobstructive calculus within the left renal pelvis. Moderate cortical scarring along the contour of the left kidney. Moderately severe atheromatous calcification proximal/mid left main renal artery. Moderate stranding densities within the left perinephric space and tracking inferiorly along the left ureter. There is beam hardening artifact secondary to bilateral hip replacements obscuring the distal left ureter and urinary bladder. Absence of the right kidney. Mild hypertrophy of both adrenal glands. Nonobstructive bowel gas pattern with a moderate amount of stool within the colon. There are diverticula along the descending and sigmoid colon without diverticulitis. Atherosclerotic disease as described. There is a filter within the IVC below the level of the left renal vein. Electronically authenticated by: OLIVIA ARMSTRONG Date: 07/18/2024 08:02
--- NOTE | 2024-07-18 07:22 | ED.GENADUL1 ---
HPI HPI - General Adult General Chief complaint: Back Pain/Injury Stated complaint: BACK AND ABDOMINAL PAIN Time Seen by Provider: 07/18/24 07:16 Source: patient Mode of arrival: ambulance Limitations: no limitations History of Present Illness HPI narrative: 83-year-old male presents to the emergency department for left lower back pain. It woke her up about 3:00 this morning and it feels like a kidney stone. She has had kidney stones in the past. No dysuria or hematuria but she states recently her urine has looked cloudy. She was given IV Toradol and antinausea medicine by the paramedics and it seems to have helped some, she feels improved. No injury or unusual activity. Related Data Home Medications ?Medication ?Instructions ?Recorded ?Confirmed allopurinol 100 mg tablet 100 mg PO DAILY 05/01/24 05/01/24 apixaban 5 mg tablet (Eliquis) 5 mg PO Q12H 05/01/24 05/01/24 magnesium oxide 400 mg (241.3 mg 400 mg PO BID 05/01/24 05/01/24 magnesium) tablet omeprazole 20 mg capsule,delayed 20 mg PO .daily 05/01/24 05/01/24 release tolterodine 4 mg capsule,extended 4 mg PO Q24H 05/01/24 05/01/24 release 24 hr Previous Rx's ?Medication ?Instructions ?Recorded aspirin 81 mg capsule 81 mg PO DAILY #30 caps 05/02/24 Allergies Allergy/AdvReac Type Severity Reaction Status Date / Time morphine Allergy Mild Abdominal Verified 07/18/24 06:53 Pain Opioid HPI Opioid Management Most Recent Opioid Data: Last Pain Scale 9 07/18/24 10:04 07/18/24 Last MAR Pain Assessment 07/18/24 10:04 Last ORT Total Score 0 05/01/24 21:05 05/01/24 Last ORT Risk Category Low Risk 05/01/24 21:05 05/01/24 Review of Systems ROS Narrative A ten point review of systems is negative except as noted above. PFSH PFSH Medical History (Updated 07/18/24 @ 10:27 by Zachary Casas MD) Chest pain ?R07.9 - Chest pain, unspecified (ICD-10) Aneurysm of aorta ?I71.9 - Aortic aneurysm of unspecified site, without rupture (ICD-10) Surgical History (Updated 05/01/24 @ 21:14 by Andressa Lea) H/O: hysterectomy ?Z90.710 - Acquired absence of both cervix and uterus (ICD-10) H/O left knee surgery ?Z98.890 - Other specified postprocedural states (ICD-10) H/O kidney removal ?Z90.5 - Acquired absence of kidney (ICD-10) History of hip surgery ?Z98.890 - Other specified postprocedural states (ICD-10) History of cholecystectomy ?Z90.49 - Acquired absence of other specified parts of digestive tract (ICD-10) Family History (Updated 05/01/24 @ 21:32 by Andressa Lea) Father Family history of CHF (congestive heart failure) Family history of COPD (chronic obstructive pulmonary disease) Family history of cancer Family history of hypertension Family history of myocardial infarction Mother Family history of cancer Grandmother Family history of cancer Family history of stroke Granddaughter Family history of diabetes mellitus Social History (Updated 05/01/24 @ 21:33 by Andressa Lea) Within the past year, how often did you have a drink containing alcohol: never Score interpretation: A score less than 3 is consistent with normal alcohol consumption. Smoking status: Never smoker Non-prescribed substance use: denies use Previous occupational history: retired Highest level of school completed/degree received: 11th grade Are you now , , , , never or living with a partner: In a typical week, how many times do you talk on the telephone with family, friends, or neighbors: 3 or more times per week How often do you get together with friends or relatives: twice per week How often do you attend episcopal or church services: never Do you belong to any clubs or organizations such as episcopal groups unions, fraternal or athletic groups, or school groups: no Total score: 1 Score interpretation: A score of less than or equal to 1 indicates the most socially isolated. Little interest or pleasure in doing things: not at all Feeling down, depressed, or hopeless: not at all Feel stressed/tense/nervous/anxious/difficulty sleeping: only a little Do you think of yourself as: straight/heterosexual Gender Identity: female Exam Narrative Exam Narrative: Nurses note and vital signs reviewed and patient is not hypoxic. General: The patient appear in no apparent distress. Patient is resting comfortably on cart. Skin: Warm, dry, no pallor noted. There is no rash noted. Head: Normocephalic, atraumatic Eye: Normal conjunctiva, no drainage Ears, Nose, Mouth, and Throat: oral mucosa is moist. Nares patent. Cardiovascular: Regular Rate and Rhythm Respiratory: Patient is in no distress, no accessory muscle use, lungs are clear to auscultation, no wheezing, rales or rhonchi Back: non-tender, no CVA tenderness bilaterally to percussion. GI: Soft and nontender Musculoskeletal: The patient has no evidence of calf tenderness, symmetrical pulses noted bilaterally Neurological: A&O, normal speech Psychiatric: Cooperative Constitutional Vital Signs, click to edit/add: Last Vital Signs Temp 98.4 F 07/18/24 06:53 Pulse 95 H 07/18/24 06:53 Resp 19 07/18/24 06:53 BP 124/85 07/18/24 06:53 Pulse Ox 95 07/18/24 08:56 O2 Del Method Room Air 07/18/24 08:56 Course Vital Signs Vital signs: Vital Signs Temperature 98.4 F 07/18/24 06:53 Pulse Rate 95 H 07/18/24 06:53 Respiratory Rate 19 07/18/24 06:53 Blood Pressure 124/85 07/18/24 06:53 Pulse Oximetry 95 07/18/24 06:53 Oxygen Delivery Method Room Air 07/18/24 06:53 Temperature 98.4 F 07/18/24 06:53 Pulse Rate 95 H 07/18/24 06:53 Respiratory Rate 19 07/18/24 06:53 Blood Pressure 124/85 07/18/24 06:53 Pulse Oximetry 95 07/18/24 08:56 Oxygen Delivery Method Room Air 07/18/24 08:56 Medical Decision Making MDM Narrative Medical decision making narrative: Large kidney stone is identified in the proximal ureter and the patient has UTI. She only has 1 kidney, the right one was removed in 1977. I have spoken to Dr. Garza and the patient will be admitted for cystoscopy today for probable stent placement. She was also given IV Rocephin here. Treatment diagnosis and disposition were discussed with the patient. Differential Diagnosis Differential Diagnosis: Kidney stone, UTI, hydronephrosis Lab Data Lab results reviewed: Yes I reviewed the patient's lab results Labs: Lab Results 07/18/24 07/18/24 Range/Units 07:13 08:54 WBC 7.7 (4.0-11.0) 10^3/uL RBC 3.93 L (4.20-5.40) 10^6/uL Hgb 12.1 (12.0-16.0) g/dL Hct 37.9 (36.0-48.0) % MCV 96.4 (81.0-99.0) fL MCH 30.8 (26.7-34.0) pg MCHC 31.9 (29.9-35.2) g/dL RDW 13.6 (11.0-15.0) % Plt Count 267 (150-450) 10^3/uL MPV 9.5 (9.5-13.5) fL Neut % (Auto) 73.7 (43.0-75.0) % Lymph % (Auto) 13.5 L (20.5-60.0) % [place] % (Auto) 10.8 (1.7-12.0) % Eos % (Auto) 0.9 (0.9-7.0) % Baso % (Auto) 0.7 (0.2-2.0) % Neut # (Auto) 5.6 (1.4-6.5) 10^3/uL Lymph # (Auto) 1.0 L (1.2-3.8) 10^3/uL [place] # (Auto) 0.8 (0.3-0.8) 10^3/uL Eos # (Auto) 0.1 (0.0-0.7) 10^3/uL Baso # (Auto) 0.1 (0.0-0.1) 10^3/uL Abs Immat Gran (auto) 0.03 (0.00-0.03) 10^3/uL Imm/Tot Granulo (auto) 0.4 (0.0-0.5) % Sodium 140 (136-145) mmol/L Potassium 4.1 (3.5-5.1) mmol/L Chloride 105 (98-107) mmol/L Carbon Dioxide 28.3 (21.0-32.0) mmol/L Anion Gap 10.8 BUN 28.0 H (7.0-18.0) mg/dL Creatinine 1.33 H (0.55-1.02) mg/dL Est GFR ( Amer) 46 L (>=60 mL/min/1.73m^2) Est GFR (Non-Af Amer) 38 L (>=60 mL/min/1.73m^2) BUN/Creatinine Ratio 21.1 Glucose 111 H (74-106) mg/dL Calcium 9.5 (8.5-10.1) mg/dL Total Bilirubin 0.3 (0.2-1.0) mg/dL AST 17 (15-37) U/L ALT 12 L (14-59) U/L Alkaline Phosphatase 105 (46-116) U/L Total Protein 6.8 (6.4-8.2) g/dL Albumin 3.0 L (3.4-5.0) g/dL Globulin 3.8 g/dL Albumin/Globulin Ratio 0.8 Urine Color Dk. yellow (YELLOW) Urine Clarity Clear (CLEAR) Urine pH 6.0 (5.0-9.0) Ur Specific [place] 1.020 (1.005-1.025) Urine Protein 100 A (NEG/TRACE) mg/dL Urine Glucose (UA) Negative (NEGATIVE) mg/dL Urine Ketones Negative (NEGATIVE) mg/dL Urine Occult Blood Large A (NEGATIVE) Urine Nitrite Positive A (NEGATIVE) Urine Bilirubin Negative (NEGATIVE) Urine Urobilinogen 0.2 (0.2-1.0) EU/dL Ur Leukocyte Esterase Moderate A (NEGATIVE) Urine RBC 20-50 A (0-2) #/HPF Urine WBC >100 A (NONE SEEN) #/HPF Ur Squamous Epith Cells Few A (NONE/RARE) #/LPF Urine Bacteria Large A (NONE SEEN) #/HPF Urine Mucus None seen (NONE SEEN) Ur Culture Indicated? Yes Imaging Data CT scan - abdomen: Radiologist's impression: ITS Impressions Abdomen/Pelvis CT 07/18/24 07:02 IMPRESSION: There is an obstructing 8.3 x 7.2 mm calculus within the proximal left ureter, just distal to the left UPJ with moderate left pelvocaliectasis. There is a 5.9 mm nonobstructive calculus within the left renal pelvis. Moderate cortical scarring along the contour of the left kidney. Moderately severe atheromatous calcification proximal/mid left main renal artery. Moderate stranding densities within the left perinephric space and tracking inferiorly along the left ureter. There is beam hardening artifact secondary to bilateral hip replacements obscuring the distal left ureter and urinary bladder. Absence of the right kidney. Mild hypertrophy of both adrenal glands. Nonobstructive bowel gas pattern with a moderate amount of stool within the colon. There are diverticula along the descending and sigmoid colon without diverticulitis. Atherosclerotic disease as described. There is a filter within the IVC below the level of the left renal vein. Electronically authenticated by: OLIVIA ARMSTRONG Date: 07/18/2024 08:02 Discharge Plan Discharge Chief Complaint: Back Pain/Injury Clinical Impression: Kidney stone, Urinary tract infection Patient Disposition: Admitted As Inpatient Time of Disposition Decision: 10:27 Condition: Fair
[2024-07-18 07:32] LABS: Basophils Absolute Auto 0.1 10^3/uL (0.0-0.1); Basophils Percent Auto 0.7 % (0.2-2.0); Eosinophils Absolute Auto 0.1 10^3/uL (0.0-0.7); Eosinophils Percent Auto 0.9 % (0.9-7.0); Hematocrit 37.9 % (36.0-48.0); Hemoglobin 12.1 g/dL (12.0-16.0); Immature Granulocytes Abs Auto 0.03 10^3/uL (0.00-0.03); Immature Granulocytes Pct Auto 0.4 % (0.0-0.5); Lymphocytes Percent Auto 13.5 % (20.5-60.0); Mean Corpuscular HGB Conc 31.9 g/dL (29.9-35.2); Mean Corpuscular Hemoglobin 30.8 pg (26.7-34.0); Mean Corpuscular Volume 96.4 fL (81.0-99.0); Mean Platelet Volume 9.5 fL (9.5-13.5); Monocytes Absolute Auto 0.8 10^3/uL (0.3-0.8); Monocytes Percent Auto 10.8 % (1.7-12.0); Neutrophils Absolute Auto 5.6 10^3/uL (1.4-6.5); Neutrophils Percent Auto 73.7 % (43.0-75.0); Platelet Count 267 10^3/uL (150-450); Red Blood Count 3.93 10^6/uL (4.20-5.40); Red Cell Distribution Width 13.6 % (11.0-15.0); White Blood Count 7.7 10^3/uL (4.0-11.0)
[2024-07-18 07:39] LABS: Alanine Aminotransferase 12 U/L (14-59); Albumin Globulin Ratio 0.8; Alkaline Phosphatase 105 U/L (46-116); Anion Gap 10.8; Aspartate Amino Transferase 17 U/L (15-37); BUN Creatinine Ratio 21.1; Bilirubin Total 0.3 mg/dL (0.2-1.0); Calcium 9.5 mg/dL (8.5-10.1); Carbon Dioxide 28.3 mmol/L (21.0-32.0); Chloride 105 mmol/L (98-107); Estimated GFR (African America 46 (>=60 mL/min/1.73m^2); Estimated GFR (Non-African Ame 38 (>=60 mL/min/1.73m^2); Globulin 3.8 g/dL; Glucose 111 mg/dL (74-106); Potassium 4.1 mmol/L (3.5-5.1); Sodium 140 mmol/L (136-145); Total Protein 6.8 g/dL (6.4-8.2)
[2024-07-18 09:02] LABS: Bilirubin Urine NEGATIVE (NEGATIVE); Blood Urine LARGE (NEGATIVE); Clarity Urine CLEAR (CLEAR); Color Urine DK. YELLOW (YELLOW); Glucose Urine UA NEGATIVE (NEGATIVE); Ketones Urine NEGATIVE (NEGATIVE); Leukocyte Esterase Urine MODERATE (NEGATIVE); Nitrite Urine POSITIVE (NEGATIVE); Protein Urine 100 mg/dL (NEG/TRACE); Urobilinogen Urine 0.2 EU/dL (0.2-1.0)
[2024-07-18 09:07] LABS: Urine Microscopic Indicated YES
[2024-07-18 09:26] LABS: Bacteria Urine LARGE #/HPF (NONE SEEN); RBC Urine 20-50 #/HPF (0-2); WBC Urine >100 #/HPF (NONE SEEN)
[2024-07-18 09:27] LABS: Mucus Urine NONE SEEN (NONE SEEN); Squamous Epithelial Cell Urine FEW #/LPF (NONE/RARE)
[2024-07-18 09:33] LABS: Urine Culture Indicated YES
[2024-07-18] MEDS: CEFTRIAXONE 1,000 MG in 0.9 % SODIUM CHLORIDE 50 ML 100 MG IV (09:46)
[2024-07-18] MEDS: FENTANYL CITRATE/PF 100 MCG/2 ML VIAL 50 MCG IV ×2 (10:04→11:15)
[2024-07-18] MEDS: ONDANSETRON PF 4 MG/2 ML VIAL IV (10:36)
--- NOTE | 2024-07-18 12:35 | P.HP_ITS ---
HPI H&P: HPI History of Present Illness Chief complaint: BACK AND ABDOMINAL PAIN, KIDNEY STONE, UTI Narrative: Patient presented to the emergency room with back pain and abdominal pain. Found to have a kidney stone, 8 mm with obstruction and hydronephrosis, patient was admitted for workup and treatment of same, workup is included UA which shows acute UTI as well. When I saw patient up on the medical surgical floor, resting fairly comfortably, she is status post the procedure. No complaints. Opioid HPI Opioid Management Most Recent Pain and Opioid Data: Last Pain Scale 8 07/18/24 11:15 07/18/24 Last Pain Assessment 07/18/24 15:00 Last MAR Pain Assessment 07/18/24 11:15 Last ORT Total Score 0 07/18/24 12:43 07/18/24 Last ORT Risk Category Low Risk 07/18/24 12:43 07/18/24 PFSH PFSH Medical History (Updated 07/18/24 @ 13:24 by Cyn Garza MD) Chest pain ?R07.9 - Chest pain, unspecified (ICD-10) Aneurysm of aorta ?I71.9 - Aortic aneurysm of unspecified site, without rupture (ICD-10) Surgical History (Updated 05/01/24 @ 21:14 by Andressa Lea) H/O: hysterectomy ?Z90.710 - Acquired absence of both cervix and uterus (ICD-10) H/O left knee surgery ?Z98.890 - Other specified postprocedural states (ICD-10) H/O kidney removal ?Z90.5 - Acquired absence of kidney (ICD-10) History of hip surgery ?Z98.890 - Other specified postprocedural states (ICD-10) History of cholecystectomy ?Z90.49 - Acquired absence of other specified parts of digestive tract (ICD- 10) Family History (Updated 05/01/24 @ 21:32 by Andressa Lea) Father Family history of CHF (congestive heart failure) Family history of COPD (chronic obstructive pulmonary disease) Family history of cancer Family history of hypertension Family history of myocardial infarction Mother Family history of cancer Grandmother Family history of cancer Family history of stroke Granddaughter Family history of diabetes mellitus Social History (Updated 05/01/24 @ 21:33 by Andressa Lea) Within the past year, how often did you have a drink containing alcohol: never Score interpretation: A score less than 3 is consistent with normal alcohol consumption. Smoking status: Never smoker Non-prescribed substance use: denies use Previous occupational history: retired Highest level of school completed/degree received: 11th grade Are you now , , , , never or living with a partner: In a typical week, how many times do you talk on the telephone with family, friends, or neighbors: 3 or more times per week How often do you get together with friends or relatives: twice per week How often do you attend religion or quaker services: never Do you belong to any clubs or organizations such as religion groups unions, [employer] or athletic groups, or school groups: no Total score: 1 Score interpretation: A score of less than or equal to 1 indicates the most socially isolated. Little interest or pleasure in doing things: not at all Feeling down, depressed, or hopeless: not at all Feel stressed/tense/nervous/anxious/difficulty sleeping: only a little Do you think of yourself as: straight/heterosexual Gender Identity: female Meds Home Medications and Allergies Home Medications ?Medication ?Instructions ?Recorded ?Confirmed ?Type allopurinol 100 mg tablet 100 mg PO DAILY 05/01/24 07/18/24 History apixaban 5 mg tablet (Eliquis) 5 mg PO Q12H 05/01/24 07/18/24 History magnesium oxide 400 mg (241.3 mg 400 mg PO BID 05/01/24 07/18/24 History magnesium) tablet omeprazole 20 mg capsule,delayed 20 mg PO .daily 05/01/24 07/18/24 History release tolterodine 4 mg capsule,extended 4 mg PO BID 05/01/24 07/18/24 History release 24 hr Allergies Allergy/AdvReac Type Severity Reaction Status Date / Time morphine Allergy Mild Abdominal Verified 07/18/24 06:53 Pain Exam Constitutional Vital Signs, click to edit/add: Last Vital Signs Temp 98.4 F 07/18/24 06:53 Pulse 84 07/18/24 10:37 Resp 18 07/18/24 10:37 BP 143/79 H 07/18/24 10:37 Pulse Ox 95 07/18/24 10:37 O2 Del Method Room Air 07/18/24 08:56 Lymph Lymphatic: no lymphadenopathy noted Chest Common normals: inspection of chest normal Respiratory Common normals: normal respiratory effort and no retractions Cardio Common normals: regular rate and regular rhythm GI Common normals: Normal to inspection, nondistended, normoactive bowel sounds present Neuro Common normals: oriented x3, CN's II-XII intact bilaterally and moves all extremities Results Labs Labs: Short CBC 07/18/24 Range/Units 07:13 WBC 7.7 (4.0-11.0) 10^3/uL Hgb 12.1 (12.0-16.0) g/dL Hct 37.9 (36.0-48.0) % Plt Count 267 (150-450) 10^3/uL BMP 07/18/24 07:13 Sodium 140 Potassium 4.1 Chloride 105 Carbon Dioxide 28.3 BUN 28.0 H Creatinine 1.33 H Glucose 111 H Calcium 9.5 Liver Function 07/18/24 Range/Units 07:13 Total Bilirubin 0.3 (0.2-1.0) mg/dL AST 17 (15-37) U/L ALT 12 L (14-59) U/L Alkaline Phosphatase 105 (46-116) U/L Albumin 3.0 L (3.4-5.0) g/dL Urine 07/18/24 Range/Units 08:54 Urine Color Dk. yellow (YELLOW) Urine Clarity Clear (CLEAR) Urine pH 6.0 (5.0-9.0) Ur Specific [place] 1.020 (1.005-1.025) Urine Protein 100 A (NEG/TRACE) mg/dL Urine Glucose (UA) Negative (NEGATIVE) mg/dL Assessment and Plan Assessment and Plan (1) Flank pain: (2) Acquired solitary kidney: (3) Ureteral stone with hydronephrosis: (4) Iron deficiency anemia: (5) Right bundle branch block: Plan Admission findings: Sinus tachycardia, obstructing nephrolithiasis with hydronephrosis and acute UTI Nephrolithiasis with obstruction-status post stenting, plan per urology Acute UTI-possible pyelonephritis-IV antibiotics, medically necessary treatment will span 2 midnights that she needs 1 course of antibiotics secondary to the stent in place Recent history of chest pain, cardiac issue ruled out at that time. History of pulmonary embolism-on anticoagulation GERD-continue with home medications Hypomagnesemia-continue with home medications Admission status: Patient with kidney stone requiring stenting, acute UTI possible pyelonephritis, IV antibiotics, medically necessary treatment will span 2 midnights. Inpatient status.
[2024-07-18 12:36] LABS: BOX Test Reference Lab Firelands; BOX Test Sent Out Urine Culture
--- OUTSIDE RECORDS SUMMARY | 2024-07-18 12:43 | XMS_ITS | CCD ---
Author Organization [facility] Care Team Providers Care Supervisor Color Paste Mixing Name Role Phone DR TIAN KUHN Primary [...] Unavailable Kuhn Tian CIFUENTES Primary Care Provider [phone] Kuhn Tian CIFUENTES Primary Care Provider [phone] REBECCA, MOHAN Admitting Unavailable REBECCAROBERTAN Attending Unavailable [...] TIAN Primary Care Unavailable RAJEEV TRUMAN Alfonso [facility] Care Unavailable YAN, ERIK Referring Unavailable ERIK HEREDIA Attending Unavailable KUHN, TIAN Primary Care Unavailable ERIK HEREDIA Referring Unavailable ERIK HEREDIA Attending Unavailable ERIK HEREDIA Admitting Unavailable Allergies Allergy Classification Reported Allergen(s) Allergy Type Date of Onset Reaction(s) Facility (4 sources) Morphine; 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: [MORPHINE] Drug Allergy 7 [facility] Repository (12 sources) oxyCODONE; 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: [OXYCODONE] Drug Allergy 7 Nausea and Vomiting [facility] Repository (11 sources) Morphine Drug Allergy 7 Nausea and Vomiting [facility] (11 sources) Penicillins Propensity to adverse reactions to drug 4 [facility] Medications Current Medications Medication Drug Class(es) Dates [...] Corticosteroid Start: 02-09-2024 End: 02-11-2024 bifidobacterium animalis [id number] unt / lactobacillus acidophilus [id number] unt oral capsule (2 sources) Start: 01-22-2024 [...] docusate sodium 50 mg / alberta osides, correction 8.6 mg oral tablet (5 sources) Start: [...] 01/19/2024 Discontinued (Stop Taking at Discharge) nystatin [id number] unt/ml topic al cream (8 sources) Polyene [...] Start: 01-12-2024 End: 02-11-2024 polyethylene glycol 3350 50831 mg powder for oral solution (6 sources) [...] Other aftercare (1 source) Other long term acute care registered nurse (current) drug therapy; 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: [OTH CLAIM ATTORNEY CURRENT DRUG THERAPY] Onset: 11-19-2022 Episodic Other aftercare (1 source) custodial (current) use of non-steroidal anti-inflammatories (NSAID); 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: [CLAIM ATTORNEY USE NSAID] Onset: 11-19-2022 Episodic Other and [...] Anion gap [Moles/Vol] 3 mmol/L Low 8-16 [facility] Calcium [Mass/Vol] 9.1 mg/dL Normal 8.4-10.2 [facility] Chloride [Moles/Vol] 104 mmol/L Normal 98-107 [facility] Comment on above: Result Comment: Shonda matthews note: Triglyceride levels of 600mg/dL or higher may positively bias chloride results by approximately 2.1 mmol CO2 [Moles/Vol] 28 mmol/L Normal 22-30 [facility] Creatinine [Mass/Vol] 0.80 mg/dL Normal 0.7-1.2 [facility] EST. GFR, 89 ml/min/1.73sq.m Normal [facility] EST. GFR,Non 73 ml/min/1.73sq.m [facility] GFR Information Average GFR for 70+ years old = 75. Normal [facility] Comment on above: Result Comment: Hospital Admissions Clerk aviva Kidney disease, GFR = <60. Kidney [...] higher Potassium [Moles/Vol] 4.5 mmol/L Normal 3.5-5.1 [facility] Sodium [Moles/Vol] 135 mmol/L Low 137-145 [facility] Urea nitrogen [Mass/Vol] 16 mg/dL Normal 7-20 [facility] C REACTIVE PROTEINon 024 CRP [Mass/Vol] 22.8 mg/L High 0-10 [facility] CBCon 02-11-2024 ABSOLUTE BAS 0.0 10*3/uL Normal 0.0-0.[address] [facility] ABSOLUTE EOS 0.2 10*3/uL Normal 0.0-0.[address] [facility] ABSOLUTE NEUTROPHIL COUNT 2.8 10*3/uL Normal 1.4-6.5 [...] MCHC (RBC) [Mass/Vol] 33.6 g/dL Normal 27.0-37.0 [facility] MCV (RBC) [Entitic vol] 96.1 fL Normal 80.0-100.0 [facility] Platelet mean volume (Bld) [Entitic vol] 7.2 fL Low 7.4-11.0 [facility] Platelets (Bld) [#/Vol] 368 10*3/uL Normal 130-400 [facility] RBC (Bld) [#/Vol] 3.32 10*6/uL Low 4.0-5.4 [facility] WBC (Bld) [#/Vol] 5.0 10*3/uL Normal 3.6-11.0 [facility] Laboratory - Chemistry and C hemistry - challengeon 02-11-2024 Anion gap [Moles/Vol] 3 mmol/L Low [facility] Calcium [Mass/Vol] 9.1 mg/dL [facility] Chloride [Moles/Vol] 104 mmol/L [facility] CO2 [Moles/Vol] 28 mmol/L [facility] Creatinine [Mass/Vol] 0.80 mg/dL [facility] CRP [Mass/Vol] 22.8 mg/L High 0 - 10 MG/L [facility] GFR/1.73 sq M.predicted among blacks MDRD (S/P/Bld) [Vol rate/Area] 89 mL/min/{1.73_m2} ml/min/1.73sq .m [facility] GFR/1.73 sq M.predicted among non-blacks MDRD (S/P/Bld) [Vol rate/Area] 73 mL/min/{1.73_m2} ml/min/1.73sq .m [facility] Glucose post fast [Mass/Vol] 98 mg/dL [facility] Potassium [Moles/Vol] 4.5 mmol/L [facility] Sodium [Moles/Vol] 135 mmol/L Low [facility] Urea nitrogen [Mass/Vol] 16 mg/dL [facility] Laboratory - Hematology and Cell countson 02-11-2024 Basophils/100 WBC (Bld) 1.0 % 0.0 - 2.0 % [facility] Differential cell count method Nom (Bld) AUTO DIFF % [facility] Eosinophils (Bld) [#/Vol] 0.2 10*3/uL 0.0 - 0.7 10*3/uL [facility] Eosinophils/100 WBC (Bld) 4.1 % 0.0 - 11.0 % [facility] Erythrocyte distribution width (RBC) [Ratio] 15.2 % High 11.5 - 14.5 % [facility] Hematocrit (Bld) [Volume fraction] 31.9 % Low 36.0 - 48.0 % [facility] Hemoglobin (Bld) [Mass/Vol] 10.7 g/dL Low [facility] Lymphocytes (Bld) [#/Vol] 1.3 10*3/uL 1.2 - 3.4 10*3/uL [facility] Lymphocytes/100 WBC (Bld) 25.8 % 20.0 - 55.0 % [facility] MCH (RBC) [Entitic mass] 32.2 pg 26.0 - 35.0 PG [facility] MCHC (RBC) [Mass/Vol] 33.6 g/dL [facility] MCV (RBC) [Entitic vol] 96.1 fL [facility] Monocytes (Bld) [#/Vol] 0.7 10*3/uL 0.0 - 0.7 10*3/uL [facility] Monocytes/100 WBC (Bld) 13.4 % High 0.0 - 10.0 % [facility] Neutrophils (Bld) [#/Vol] 2.8 10*3/uL 1.4 - 6.5 10*3/uL [facility] Neutrophils/100 WBC (Bld) 55.7 % 37.0 - 75.0 % [facility] Platelet mean volume (Bld) [Entitic vol] 7.2 fL Low [facility] Platelets (Bld) [#/Vol] 368 10*3/uL 130 - 400 10*3/uL [facility] RBC (Bld) [#/Vol] 3.32 10*6/uL Low 4.0 - 5.4 10*6/uL [facility] WBC (Bld) [#/Vol] 5.0 10*3/uL 3.6 - 11.0 10*3/uL [facility] No Panel Informationon 02-10 GFR COMMENT Average GFR for 70+ years old = 75. [facility] Interpretation and review of laboratory results Abnormal [facility] ABSOLUTE BASOPHIL COUNT 0.0 10*3/uL 0.0 - 0.2 10*3/uL [facility] Interpretation and review of laboratory results Abnormal [facility] BMP FASTINGon 02-10-2024 Anion gap [Moles/Vol] 1 mmol/L Low 8-16 [facility] Calcium [Mass/Vol] 8.8 mg/dL Normal 8.4-10.2 [facility] Chloride [Moles/Vol] 105 mmol/L Normal 98-107 [facility] Comment on above: Result Comment: Shonda matthews note: Triglyceride levels of 600mg/dL or higher may positively bias chloride results by approximately 2.1 mmol CO2 [Moles/Vol] 29 mmol/L Normal 22-30 [facility] Creatinine [Mass/Vol] 0.80 mg/dL Normal 0.7-1.2 [facility] EST. GFR, 89 ml/min/1.73sq.m Normal [facility] EST. GFR,Non 73 ml/min/1.73sq.m Normal [facility] GFR Information Average GFR for 70+ years old = 75. Normal [facility] Comment on above: Result Comment: Hospital Admissions Clerk aviva Kidney disease, GFR = <60. Kidney [...] higher Potassium [Moles/Vol] 4.3 mmol/L Normal 3.5-5.1 [facility] Sodium [Moles/Vol] 135 mmol/L Low 137-145 [facility] Urea nitrogen [Mass/Vol] 19 mg/dL Normal 7-20 [facility] C REACTIVE PROTEINon 024 CRP [Mass/Vol] 18.6 mg/L High 0-10 [facility] CBCon 02-10-2024 ABSOLUTE BAS 0.0 10*3/uL Normal 0.0-0.[address] [facility] ABSOLUTE EOS 0.2 10*3/uL Normal 0.0-0.[address] [facility] ABSOLUTE NEUTROPHIL COUNT 3.8 10*3/uL Normal 1.4-6.5 [...] MCHC (RBC) [Mass/Vol] 33.6 g/dL Normal 27.0-37.0 [facility] MCV (RBC) [Entitic vol] 95.6 fL Normal 80.0-100.0 [facility] Platelet mean volume (Bld) [Entitic vol] 7.2 fL Low 7.4-11.0 [facility] Platelets (Bld) [#/Vol] 369 10*3/uL Normal 130-400 [facility] RBC (Bld) [#/Vol] 3.32 10*6/uL Low 4.0-5.4 [facility] WBC (Bld) [#/Vol] 6.3 10*3/uL Normal 3.6-11.0 [facility] Laboratory - Chemistry and C hemistry - challengeon 02-10-2024 Anion gap [Moles/Vol] 1 mmol/L Low [facility] Calcium [Mass/Vol] 8.8 mg/dL [facility] Chloride [Moles/Vol] 105 mmol/L [facility] CO2 [Moles/Vol] 29 mmol/L [facility] Creatinine [Mass/Vol] 0.80 mg/dL [facility] CRP [Mass/Vol] 18.6 mg/L High 0 - 10 MG/L [facility] GFR/1.73 sq M.predicted among blacks MDRD (S/P/Bld) [Vol rate/Area] 89 mL/min/{1.73_m2} ml/min/1.73sq .m [facility] GFR/1.73 sq M.predicted among non-blacks MDRD (S/P/Bld) [Vol rate/Area] 73 mL/min/{1.73_m2} ml/min/1.73sq .m [facility] Glucose post fast [Mass/Vol] 97 mg/dL [facility] Potassium [Moles/Vol] 4.3 mmol/L [facility] Sodium [Moles/Vol] 135 mmol/L Low [facility] Urea nitrogen [Mass/Vol] 19 mg/dL [facility] Laboratory - Hematology and Cell countson 02-10-2024 Basophils/100 WBC (Bld) 0.6 % 0.0 - 2.0 % [facility] Differential cell count method Nom (Bld) AUTO DIFF % [facility] Eosinophils (Bld) [#/Vol] 0.2 10*3/uL 0.0 - 0.7 10*3/uL [facility] Eosinophils/100 WBC (Bld) 3.1 % 0.0 - 11.0 % [facility] Erythrocyte distribution width (RBC) [Ratio] 15.2 % High 11.5 - 14.5 % [facility] Hematocrit (Bld) [Volume fraction] 31.7 % Low 36.0 - 48.0 % [facility] Hemoglobin (Bld) [Mass/Vol] 10.7 g/dL Low [facility] Lymphocytes (Bld) [#/Vol] 1.6 10*3/uL 1.2 - 3.4 10*3/uL [facility] Lymphocytes/100 WBC (Bld) 24.9 % 20.0 - 55.0 % [facility] MCH (RBC) [Entitic mass] 32.1 pg 26.0 - 35.0 PG [facility] MCHC (RBC) [Mass/Vol] 33.6 g/dL [facility] MCV (RBC) [Entitic vol] 95.6 fL [facility] Monocytes (Bld) [#/Vol] 0.7 10*3/uL 0.0 - 0.7 10*3/uL [facility] Monocytes/100 WBC (Bld) 11.0 % High 0.0 - 10.0 % [facility] Neutrophils (Bld) [#/Vol] 3.8 10*3/uL 1.4 - 6.5 10*3/uL [facility] Neutrophils/100 WBC (Bld) 60.4 % 37.0 - 75.0 % [facility] Platelet mean volume (Bld) [Entitic vol] 7.2 fL Low [facility] Platelets (Bld) [#/Vol] 369 10*3/uL 130 - 400 10*3/uL [facility] RBC (Bld) [#/Vol] 3.32 10*6/uL Low 4.0 - 5.4 10*6/uL [facility] WBC (Bld) [#/Vol] 6.3 10*3/uL 3.6 - 11.0 10*3/uL [facility] No Panel Informationon 02-09 GFR COMMENT Average GFR for 70+ years old = 75. [facility] Interpretation and review of laboratory results Abnormal [facility] ABSOLUTE BASOPHIL COUNT 0.0 10*3/uL 0.0 - 0.2 10*3/uL [facility] Interpretation and review of laboratory results Abnormal [facility] BMP FASTINGon 02-09-2024 Anion gap [Moles/Vol] 3 mmol/L Low 8-16 [facility] Calcium [Mass/Vol] 9.1 mg/dL Normal 8.4-10.2 [facility] Chloride [Moles/Vol] 104 mmol/L Normal 98-107 [facility] Comment on above: Result Comment: Shonda matthews note: Triglyceride levels of 600mg/dL or higher may positively bias chloride results by approximately 2.1 mmol CO2 [Moles/Vol] 28 mmol/L Normal 22-30 [facility] Creatinine [Mass/Vol] 0.90 mg/dL Normal 0.7-1.2 [facility] EST. GFR, 77 ml/min/1.73sq.m Normal [facility] EST. GFR,Non 64 ml/min/1.73sq.m Normal [facility] GFR Information Average GFR for 70+ years old = 75. Normal [facility] Comment on above: Result Comment: Hospital Admissions Clerk aviva Kidney disease, GFR = <60. Kidney [...] higher Potassium [Moles/Vol] 4.5 mmol/L Normal 3.5-5.1 [facility] Sodium [Moles/Vol] 135 mmol/L Low 137-145 [facility] Urea nitrogen [Mass/Vol] 20 mg/dL Normal 7-20 [facility] C REACTIVE PROTEINon 02-08- 024 CRP [Mass/Vol] 21.2 mg/L High 0-10 [facility] CBCon 02-09-2024 ABSOLUTE BAS 0.1 10*3/uL Normal 0.0-0.[address] [facility] ABSOLUTE EOS 0.2 10*3/uL Normal 0.0-0.[address] [facility] ABSOLUTE NEUTROPHIL COUNT 3.7 10*3/uL Normal 1.4-6.5 [...] MCHC (RBC) [Mass/Vol] 33.4 g/dL Normal 27.0-37.0 [facility] MCV (RBC) [Entitic vol] 96.0 fL Normal 80.0-100.0 [facility] Platelet mean volume (Bld) [Entitic vol] 7.4 fL Normal 7.4-11.0 [facility] Platelets (Bld) [#/Vol] 401 10*3/uL High 130-400 [facility] RBC (Bld) [#/Vol] 3.56 10*6/uL Low 4.0-5.4 [facility] WBC (Bld) [#/Vol] 6.4 10*3/uL Normal 3.6-11.0 [facility] Laboratory - Chemistry and C hemistry - challengeon 02-09-2024 Anion gap [Moles/Vol] 3 mmol/L Low [facility] Calcium [Mass/Vol] 9.1 mg/dL [facility] Chloride [Moles/Vol] 104 mmol/L [facility] CO2 [Moles/Vol] 28 mmol/L [facility] Creatinine [Mass/Vol] 0.90 mg/dL [facility] CRP [Mass/Vol] 21.2 mg/L High 0 - 10 MG/L [facility] GFR/1.73 sq M.predicted among blacks MDRD (S/P/Bld) [Vol rate/Area] 77 mL/min/{1.73_m2} ml/min/1.73sq .m [facility] GFR/1.73 sq M.predicted among non-blacks MDRD (S/P/Bld) [Vol rate/Area] 64 mL/min/{1.73_m2} ml/min/1.73sq .m [facility] Glucose post fast [Mass/Vol] 103 mg/dL High [facility] Potassium [Moles/Vol] 4.5 mmol/L [facility] Sodium [Moles/Vol] 135 mmol/L Low [facility] Urea nitrogen [Mass/Vol] 20 mg/dL [facility] Laboratory - Hematology and Cell countson 02-09-2024 Basophils/100 WBC (Bld) 0.9 % 0.0 - 2.0 % [facility] Differential cell count method Nom (Bld) AUTO DIFF % [facility] Eosinophils (Bld) [#/Vol] 0.2 10*3/uL 0.0 - 0.7 10*3/uL [facility] Eosinophils/100 WBC (Bld) 2.9 % 0.0 - 11.0 % [facility] Erythrocyte distribution width (RBC) [Ratio] 15.1 % High 11.5 - 14.5 % [facility] Hematocrit (Bld) [Volume fraction] 34.2 % Low 36.0 - 48.0 % [facility] Hemoglobin (Bld) [Mass/Vol] 11.4 g/dL Low [facility] Lymphocytes (Bld) [#/Vol] 1.8 10*3/uL 1.2 - 3.4 10*3/uL [facility] Lymphocytes/100 WBC (Bld) 27.8 % 20.0 - 55.0 % [facility] MCH (RBC) [Entitic mass] 32.0 pg 26.0 - 35.0 PG [facility] MCHC (RBC) [Mass/Vol] 33.4 g/dL [facility] MCV (RBC) [Entitic vol] 96.0 fL [facility] Monocytes (Bld) [#/Vol] 0.7 10*3/uL 0.0 - 0.7 10*3/uL [facility] Monocytes/100 WBC (Bld) 10.8 % High 0.0 - 10.0 % [facility] Neutrophils (Bld) [#/Vol] 3.7 10*3/uL 1.4 - 6.5 10*3/uL [facility] Neutrophils/100 WBC (Bld) 57.6 % 37.0 - 75.0 % [facility] Platelet mean volume (Bld) [Entitic vol] 7.4 fL [facility] Platelets (Bld) [#/Vol] 401 10*3/uL High 130 - 400 10*3/uL [facility] RBC (Bld) [#/Vol] 3.56 10*6/uL Low 4.0 - 5.4 10*6/uL [facility] WBC (Bld) [#/Vol] 6.4 10*3/uL 3.6 - 11.0 10*3/uL [facility] No Panel Informationon 02-08 GFR COMMENT Average GFR for 70+ years old = 75. [facility] Interpretation and review of laboratory results Abnormal [facility] ABSOLUTE BASOPHIL COUNT 0.1 10*3/uL 0.0 - 0.2 10*3/uL [facility] Interpretation and review of laboratory results Abnormal [facility] BMP FASTINGon 02-08-2024 Anion gap [Moles/Vol] Negative Normal 8-16 [facility] Calcium [Mass/Vol] 8.9 mg/dL Normal 8.4-10.2 [facility] Chloride [Moles/Vol] 104 mmol/L Normal 98-107 [facility] Comment on above: Result Comment: Shonda matthews note: Triglyceride levels of 600mg/dL or higher may positively bias chloride results by approximately 2.1 mmol CO2 [Moles/Vol] 30 mmol/L Normal 22-30 [facility] Creatinine [Mass/Vol] 0.80 mg/dL Normal 0.7-1.2 [facility] EST. GFR, 89 ml/min/1.73sq.m Normal [facility] EST. GFR,Non 73 ml/min/1.73sq.m Normal [facility] GFR Information Average GFR for 70+ years old = 75. Normal [facility] Comment on above: Result Comment: Hospital Admissions Clerk aviva Kidney disease, GFR = <60. Kidney [...] higher Potassium [Moles/Vol] 4.3 mmol/L Normal 3.5-5.1 [facility] Sodium [Moles/Vol] 133 mmol/L Low 137-145 [facility] Urea nitrogen [Mass/Vol] 14 mg/dL Normal 7-20 [facility] C REACTIVE PROTEINon 02-07- 024 CRP [Mass/Vol] 22.2 mg/L High 0-10 [facility] CBCon 02-08-2024 ABSOLUTE BAS 0.1 10*3/uL Normal 0.0-0.[address] [facility] ABSOLUTE EOS 0.2 10*3/uL Normal 0.0-0.[address] [facility] ABSOLUTE NEUTROPHIL COUNT 3.2 10*3/uL Normal 1.4-6.5 [...] MCHC (RBC) [Mass/Vol] 33.7 g/dL Normal 27.0-37.0 [facility] MCV (RBC) [Entitic vol] 95.1 fL Normal 80.0-100.0 [facility] Platelet mean volume (Bld) [Entitic vol] 7.4 fL Normal 7.4-11.0 [facility] Platelets (Bld) [#/Vol] 368 10*3/uL Normal 130-400 [facility] RBC (Bld) [#/Vol] 3.24 10*6/uL Low 4.0-5.4 [facility] WBC (Bld) [#/Vol] 5.5 10*3/uL Normal 3.6-11.0 [facility] ESRon 02-08-2024 ESR (Bld) [Velocity] 75 mm/h High 0-30 [facility] Laboratory - Chemistry and C hemistry - challengeon 02-08-2024 Anion gap [Moles/Vol] Negative [facility] Calcium [Mass/Vol] 8.9 mg/dL [facility] Chloride [Moles/Vol] 104 mmol/L [facility] CO2 [Moles/Vol] 30 mmol/L [facility] Creatinine [Mass/Vol] 0.80 mg/dL [facility] CRP [Mass/Vol] 22.2 mg/L High 0 - 10 MG/L [facility] GFR/1.73 sq M.predicted among blacks MDRD (S/P/Bld) [Vol rate/Area] 89 mL/min/{1.73_m2} ml/min/1.73sq .m [facility] GFR/1.73 sq M.predicted among non-blacks MDRD (S/P/Bld) [Vol rate/Area] 73 mL/min/{1.73_m2} ml/min/1.73sq .m [facility] Glucose post fast [Mass/Vol] 96 mg/dL [facility] Potassium [Moles/Vol] 4.3 mmol/L [facility] Sodium [Moles/Vol] 133 mmol/L Low [facility] Urea nitrogen [Mass/Vol] 14 mg/dL [facility] Laboratory - Hematology and Cell countson 02-08-2024 ESR (Bld) [Velocity] 75 mm/h High [facility] Basophils/100 WBC (Bld) 1.0 % 0.0 - 2.0 % [facility] Differential cell count method Nom (Bld) AUTO DIFF % [facility] Eosinophils (Bld) [#/Vol] 0.2 10*3/uL 0.0 - 0.7 10*3/uL [facility] Eosinophils/100 WBC (Bld) 3.5 % 0.0 - 11.0 % [facility] Erythrocyte distribution width (RBC) [Ratio] 15.3 % High 11.5 - 14.5 % [facility] Hematocrit (Bld) [Volume fraction] 30.8 % Low 36.0 - 48.0 % [facility] Hemoglobin (Bld) [Mass/Vol] 10.4 g/dL Low [facility] Lymphocytes (Bld) [#/Vol] 1.5 10*3/uL 1.2 - 3.4 10*3/uL [facility] Lymphocytes/100 WBC (Bld) 26.3 % 20.0 - 55.0 % [facility] MCH (RBC) [Entitic mass] 32.1 pg 26.0 - 35.0 PG [facility] MCHC (RBC) [Mass/Vol] 33.7 g/dL [facility] MCV (RBC) [Entitic vol] 95.1 fL [facility] Monocytes (Bld) [#/Vol] 0.6 10*3/uL 0.0 - 0.7 10*3/uL [facility] Monocytes/100 WBC (Bld) 11.2 % High 0.0 - 10.0 % [facility] Neutrophils (Bld) [#/Vol] 3.2 10*3/uL 1.4 - 6.5 10*3/uL [facility] Neutrophils/100 WBC (Bld) 58.0 % 37.0 - 75.0 % [facility] Platelet mean volume (Bld) [Entitic vol] 7.4 fL [facility] Platelets (Bld) [#/Vol] 368 10*3/uL 130 - 400 10*3/uL [facility] RBC (Bld) [#/Vol] 3.24 10*6/uL Low 4.0 - 5.4 10*6/uL [facility] WBC (Bld) [#/Vol] 5.5 10*3/uL 3.6 - 11.0 10*3/uL [facility] No Panel Informationon 02-07 Interpretation and review of laboratory results Abnormal [facility] GFR COMMENT Average GFR for 70+ years old = 75. [facility] Interpretation and review of laboratory results Abnormal [facility] ABSOLUTE BASOPHIL COUNT 0.1 10*3/uL 0.0 - 0.2 10*3/uL [facility] Interpretation and review of laboratory results Abnormal [facility] BMP FASTINGon 02-07-2024 Anion gap [Moles/Vol] 1 mmol/L Low 8-16 [facility] Comment on above: Performed By: #### A CBC #### Testing performed at [place] [address] [place] [address] Calcium [Mass/Vol] 8.8 mg/dL Normal 8.4-10.2 [facility] Comment on above: Performed By: #### A CBC #### Testing performed at [place] [address] [place] [id number] Chloride [Moles/Vol] 105 mmol/L Normal 98-107 [facility] Comment on above: Result Comment: Plebowen matthews note: Triglyceride levels of 600mg/dL or higher may positively bias chloride results by approximately 2.1 mmol Performed By: #### A CBC #### Testing performed at [place] [id number] CO2 [Moles/Vol] 27 mmol/L Normal 22-30 [facility] Comment on above: Performed By: #### A CBC #### Testing performed at [place] [id number] Creatinine [Mass/Vol] 0.70 mg/dL Normal 0.7-1.2 [facility] Comment on above: Performed By: #### A CBC #### Testing performed at [address] [address] EST. GFR, 103 ml/min/1.73sq.m [facility] Comment on above: Performed By: #### A CBC #### Testing performed at [place] [id number] EST. GFR,Non 85 ml/min/1.73sq.m [facility] Comment on above: Performed By: #### A CBC #### Testing performed at [place] [id number] GFR Information Average GFR for 70+ years old = 75. Normal [facility] Comment on above: Result Comment: Hospital Admissions Clerk aviva Kidney disease, GFR = <60. Kidney failure, GFR = <15. The GFR estimate is not adjusted for extreme body surface area or acute process, nor has it been validated for women or ethnic groups other than and . Performed By: #### A CBC #### Testing performed at [place] [id number] Glucose [Mass/Vol] 95 mg/dL Normal 70-100 [facility] Comment on above: Result Comment: NORMAL <100 mg/dL PREDIABETES 101-126 mg/dL DIABETES 126 mg/dL or higher Performed By: #### A CBC #### Testing performed at [address] [place] [address] Potassium [Moles/Vol] 4.3 mmol/L Normal 3.5-5.1 [facility] Comment on above: Performed By: #### A CBC #### Testing performed at [address] [address] Sodium [Moles/Vol] 133 mmol/L Low 137-145 [facility] Comment on above: Performed By: #### A CBC #### Testing performed at [address] [address] Urea nitrogen [Mass/Vol] 11 mg/dL Normal 7-20 [facility] Comment on above: Performed By: #### A CBC #### Testing performed at [address] [address] C REACTIVE PROTEINon 024 CRP [Mass/Vol] 19.6 mg/L High 0-10 [facility] Comment on above: Performed By: #### A CBC #### Testing performed at [address] [address] CBCon 02-07-2024 ABSOLUTE BAS 0.0 10*3/uL Normal 0.0-0.[address] [facility] Comment on above: Performed By: #### A CBC #### Testing performed at [address] [address] ABSOLUTE EOS 0.2 10*3/uL Normal 0.0-0.[address] [facility] Comment on above: Performed By: #### A CBC #### Testing performed at [address] [address] ABSOLUTE NEUTROPHIL COUNT 2.8 10*3/uL Normal 1.4-6.5 [facility] Comment on above: Performed By: #### A CBC #### Testing performed at [address] [address] Basophils/100 WBC (Bld) 0.9 % Normal 0.0-2.0 [facility] Comment on above: Performed By: #### A CBC #### Testing performed at [place] [address] [place] [address] DTYPE AUTO DIFF Normal [facility] Comment on above: Performed By: #### A CBC #### Testing performed at [place] [address] [place] [address] Eosinophils/100 WBC (Bld) 3.8 % Normal 0.0-11.0 [facility] Comment on above: Performed By: #### A CBC #### Testing performed at [address] [address] Lymphocytes (Bld) [#/Vol] 1.4 10*3/uL Normal 1.2-3.4 [facility] Comment on above: Performed By: #### A CBC #### Testing performed at [address] [address] Lymphocytes/100 WBC (Bld) 28.3 % Normal 20.0-55.0 [facility] Comment on above: Performed By: #### A CBC #### Testing performed at [address] [address] Monocytes (Bld) [#/Vol] 0.6 10*3/uL Normal 0.0-0.7 [facility] Comment on above: Performed By: #### A CBC #### Testing performed at [address] [address] Monocytes/100 WBC (Bld) 12.4 % High 0.0-10.0 [facility] Comment on above: Performed By: #### A CBC #### Testing performed at [address] [address] Neutrophils/100 WBC (Bld) 54.6 % Normal 37.0-75.0 [facility] Comment on above: Performed By: #### A CBC #### Testing performed at [address] [address] Erythrocyte distribution width (RBC) [Ratio] 16.0 % High 11.5-14.5 [facility] Comment on above: Performed By: #### A CBC #### Testing performed at [address] [address] Hematocrit (Bld) [Volume fraction] 31.7 % Low 36.0-48.0 [facility] Comment on above: Performed By: #### A CBC #### Testing performed at [address] [address] Hemoglobin (Bld) [Mass/Vol] 10.5 g/dL Low 12.0-16.0 [facility] Comment on above: Performed By: #### A CBC #### Testing performed at [address] [address] MCH (RBC) [Entitic mass] 32.5 pg Normal 26.0-35.0 [facility] Comment on above: Performed By: #### A CBC #### Testing performed at [address] [address] MCHC (RBC) [Mass/Vol] 33.1 g/dL Normal 27.0-37.0 [facility] Comment on above: Performed By: #### A CBC #### Testing performed at [address] [address] MCV (RBC) [Entitic vol] 98.4 fL Normal 80.0-100.0 [facility] Comment on above: Performed By: #### A CBC #### Testing performed at [address] [address] Platelet mean volume (Bld) [Entitic vol] 7.2 fL Low 7.4-11.0 [facility] Comment on above: Performed By: #### A CBC #### Testing performed at [address] [address] Platelets (Bld) [#/Vol] 366 10*3/uL Normal 130-400 [facility] Comment on above: Performed By: #### A CBC #### Testing performed at [place] [address] [place] [address] RBC (Bld) [#/Vol] 3.23 10*6/uL Low 4.0-5.4 [facility] Comment on above: Performed By: #### A CBC #### Testing performed at [place] [address] [place] [address] WBC (Bld) [#/Vol] 5.1 10*3/uL Normal 3.6-11.0 [facility] Comment on above: Performed By: #### A CBC #### [place] [address] Laboratory - Chemistry and C hemistry - challengeon 02-07-2024 Anion gap [Moles/Vol] 1 mmol/L Low [facility] Calcium [Mass/Vol] 8.8 mg/dL [facility] Chloride [Moles/Vol] 105 mmol/L [facility] CO2 [Moles/Vol] 27 mmol/L [facility] Creatinine [Mass/Vol] 0.70 mg/dL [facility] CRP [Mass/Vol] 19.6 mg/L High 0 - 10 MG/L [facility] GFR/1.73 sq M.predicted among blacks MDRD (S/P/Bld) [Vol rate/Area] 103 mL/min/{1.73_m2} ml/min/1.73sq .m [facility] GFR/1.73 sq M.predicted among non-blacks MDRD (S/P/Bld) [Vol rate/Area] 85 mL/min/{1.73_m2} ml/min/1.73sq .m [facility] Glucose post fast [Mass/Vol] 95 mg/dL [facility] Potassium [Moles/Vol] 4.3 mmol/L [facility] Sodium [Moles/Vol] 133 mmol/L Low [facility] Urea nitrogen [Mass/Vol] 11 mg/dL [facility] Laboratory - Hematology and Cell countson 02-07-2024 Basophils/100 WBC (Bld) 0.9 % 0.0 - 2.0 % [facility] Differential cell count method Nom (Bld) AUTO DIFF % [facility] Eosinophils (Bld) [#/Vol] 0.2 10*3/uL 0.0 - 0.7 10*3/uL [facility] Eosinophils/100 WBC (Bld) 3.8 % 0.0 - 11.0 % [facility] Erythrocyte distribution width (RBC) [Ratio] 16.0 % High 11.5 - 14.5 % [facility] Hematocrit (Bld) [Volume fraction] 31.7 % Low 36.0 - 48.0 % [facility] Hemoglobin (Bld) [Mass/Vol] 10.5 g/dL Low [facility] Lymphocytes (Bld) [#/Vol] 1.4 10*3/uL 1.2 - 3.4 10*3/uL [facility] Lymphocytes/100 WBC (Bld) 28.3 % 20.0 - 55.0 % [facility] MCH (RBC) [Entitic mass] 32.5 pg 26.0 - 35.0 PG [facility] MCHC (RBC) [Mass/Vol] 33.1 g/dL [facility] MCV (RBC) [Entitic vol] 98.4 fL [facility] Monocytes (Bld) [#/Vol] 0.6 10*3/uL 0.0 - 0.7 10*3/uL [facility] Monocytes/100 WBC (Bld) 12.4 % High 0.0 - 10.0 % [facility] Neutrophils (Bld) [#/Vol] 2.8 10*3/uL 1.4 - 6.5 10*3/uL [facility] Neutrophils/100 WBC (Bld) 54.6 % 37.0 - 75.0 % [facility] Platelet mean volume (Bld) [Entitic vol] 7.2 fL Low [facility] Platelets (Bld) [#/Vol] 366 10*3/uL 130 - 400 10*3/uL [facility] RBC (Bld) [#/Vol] 3.23 10*6/uL Low 4.0 - 5.4 10*6/uL [facility] WBC (Bld) [#/Vol] 5.1 10*3/uL 3.6 - 11.0 10*3/uL [facility] No Panel Informationon 02-06 ABSOLUTE BASOPHIL COUNT 0.0 10*3/uL 0.0 - 0.2 10*3/uL [facility] Interpretation and review of laboratory results Abnormal [facility] GFR COMMENT Average GFR for 70+ years old = 75. [facility] Interpretation and review of laboratory results Abnormal [facility] BMP FASTINGon 02-06-2024 Anion gap [Moles/Vol] 2 mmol/L Low 8-16 [facility] Calcium [Mass/Vol] 8.6 mg/dL Normal 8.4-10.2 [facility] Chloride [Moles/Vol] 104 mmol/L Normal 98-107 [facility] Comment on above: Result Comment: Shonda matthews note: Triglyceride levels of 600mg/dL or higher may positively bias chloride results by approximately 2.1 mmol CO2 [Moles/Vol] 29 mmol/L Normal 22-30 [facility] Creatinine [Mass/Vol] 0.80 mg/dL Normal 0.7-1.2 [facility] EST. GFR, 89 ml/min/1.73sq.m Normal [facility] EST. GFR,Non 73 ml/min/1.73sq.m Normal [facility] GFR Information Average GFR for 70+ years old = 75. Normal [facility] Comment on above: Result Comment: Hospital Admissions Clerk aviva Kidney disease, GFR = <60. Kidney [...] higher Potassium [Moles/Vol] 4.4 mmol/L Normal 3.5-5.1 [facility] Sodium [Moles/Vol] 135 mmol/L Low 137-145 [facility] Urea nitrogen [Mass/Vol] 17 mg/dL Normal 7-20 [facility] C REACTIVE PROTEINon 024 CRP [Mass/Vol] 22.7 mg/L High 0-10 [facility] CBCon 02-06-2024 ABSOLUTE BAS 0.0 10*3/uL Normal 0.0-0.[address] [facility] ABSOLUTE EOS 0.2 10*3/uL Normal 0.0-0.[address] [facility] ABSOLUTE NEUTROPHIL COUNT 3.4 10*3/uL Normal 1.4-6.5 [...] MCHC (RBC) [Mass/Vol] 34.0 g/dL Normal 27.0-37.0 [facility] MCV (RBC) [Entitic vol] 95.7 fL Normal 80.0-100.0 [facility] Platelet mean volume (Bld) [Entitic vol] 6.7 fL Low 7.4-11.0 [facility] Platelets (Bld) [#/Vol] 365 10*3/uL Normal 130-400 [facility] RBC (Bld) [#/Vol] 3.10 10*6/uL Low 4.0-5.4 [facility] WBC (Bld) [#/Vol] 5.8 10*3/uL Normal 3.6-11.0 [facility] Laboratory - Chemistry and C hemistry - challengeon 02-06-2024 Anion gap [Moles/Vol] 2 mmol/L Low [facility] Calcium [Mass/Vol] 8.6 mg/dL [facility] Chloride [Moles/Vol] 104 mmol/L [facility] CO2 [Moles/Vol] 29 mmol/L [facility] Creatinine [Mass/Vol] 0.80 mg/dL [facility] CRP [Mass/Vol] 22.7 mg/L High 0 - 10 MG/L [facility] GFR/1.73 sq M.predicted among blacks MDRD (S/P/Bld) [Vol rate/Area] 89 mL/min/{1.73_m2} ml/min/1.73sq .m [facility] GFR/1.73 sq M.predicted among non-blacks MDRD (S/P/Bld) [Vol rate/Area] 73 mL/min/{1.73_m2} ml/min/1.73sq .m [facility] Glucose post fast [Mass/Vol] 100 mg/dL [facility] Potassium [Moles/Vol] 4.4 mmol/L [facility] Sodium [Moles/Vol] 135 mmol/L Low [facility] Urea nitrogen [Mass/Vol] 17 mg/dL [facility] Laboratory - Hematology and Cell countson 02-06-2024 Basophils/100 WBC (Bld) 0.8 % 0.0 - 2.0 % [facility] Differential cell count method Nom (Bld) AUTO DIFF % [facility] Eosinophils (Bld) [#/Vol] 0.2 10*3/uL 0.0 - 0.7 10*3/uL [facility] Eosinophils/100 WBC (Bld) 2.8 % 0.0 - 11.0 % [facility] Erythrocyte distribution width (RBC) [Ratio] 15.2 % High 11.5 - 14.5 % [facility] Hematocrit (Bld) [Volume fraction] 29.6 % Low 36.0 - 48.0 % [facility] Hemoglobin (Bld) [Mass/Vol] 10.1 g/dL Low [facility] Lymphocytes (Bld) [#/Vol] 1.5 10*3/uL 1.2 - 3.4 10*3/uL [facility] Lymphocytes/100 WBC (Bld) 25.0 % 20.0 - 55.0 % [facility] MCH (RBC) [Entitic mass] 32.5 pg 26.0 - 35.0 PG [facility] MCHC (RBC) [Mass/Vol] 34.0 g/dL [facility] MCV (RBC) [Entitic vol] 95.7 fL [facility] Monocytes (Bld) [#/Vol] 0.8 10*3/uL High 0.0 - 0.7 10*3/uL [facility] Monocytes/100 WBC (Bld) 12.9 % High 0.0 - 10.0 % [facility] Neutrophils (Bld) [#/Vol] 3.4 10*3/uL 1.4 - 6.5 10*3/uL [facility] Neutrophils/100 WBC (Bld) 58.5 % 37.0 - 75.0 % [facility] Platelet mean volume (Bld) [Entitic vol] 6.7 fL Low [facility] Platelets (Bld) [#/Vol] 365 10*3/uL 130 - 400 10*3/uL [facility] RBC (Bld) [#/Vol] 3.10 10*6/uL Low 4.0 - 5.4 10*6/uL [facility] WBC (Bld) [#/Vol] 5.8 10*3/uL 3.6 - 11.0 10*3/uL [facility] No Panel Informationon 02-05 GFR COMMENT Average GFR for 70+ years old = 75. [facility] Interpretation and review of laboratory results Abnormal [facility] ABSOLUTE BASOPHIL COUNT 0.0 10*3/uL 0.0 - 0.2 10*3/uL [facility] Interpretation and review of laboratory results Abnormal [facility] BMP FASTINGon 02-04-2023 Anion gap [Moles/Vol] 1 mmol/L Low 8-16 [facility] Comment on above: Performed By: #### A CBC ####Testing performed at [address] [address] Calcium [Mass/Vol] 8.8 mg/dL Normal 8.4-10.2 [facility] Comment on above: Performed By: #### A CBC ####Testing performed at [address] [address] Chloride [Moles/Vol] 104 mmol/L Normal 98-107 [facility] Comment on above: Result Comment: Shonda matthews note: Triglyceride levels of 600mg/dL or higher may positively bias chloride results by approximately 2.1 mmol Performed By: #### A CBC ####Testing performed at [address] [address] CO2 [Moles/Vol] 30 mmol/L Normal 22-30 [facility] Comment on above: Performed By: #### A CBC ####Testing performed at [address] [address] Creatinine [Mass/Vol] 0.80 mg/dL Normal 0.7-1.2 [facility] Comment on above: Performed By: #### A CBC ####Testing performed at [address] [address] EST. GFR, 89 ml/min/1.73sq.m [facility] Comment on above: Performed By: #### A CBC ####Testing performed at [address] [address] EST. GFR,Non 73 ml/min/1.73sq.m [facility] Comment on above: Performed By: #### A CBC ####Testing performed at [address] [address] GFR Information Average GFR for 70+ years old = 75. Normal [facility] Comment on above: Result Comment: Hospital Admissions Clerk aviva Kidney disease, GFR = <60. Kidney failure, GFR = <15. The GFR estimate is not adjusted for extreme body surface area or acute process, nor has it been validated for women or ethnic groups other than and . Performed By: #### A CBC ####Testing performed at [address] [address] Glucose [Mass/Vol] 101 mg/dL High 70-100 [facility] Comment on above: Result Comment: NORMAL <100 mg/dL PREDIABETES 101-126 mg/dL DIABETES 126 mg/dL or higher Performed By: #### A CBC ####Testing performed at [address] [address] Potassium [Moles/Vol] 4.3 mmol/L Normal 3.5-5.1 [facility] Comment on above: Performed By: #### A CBC ####Testing performed at [address] [address] Sodium [Moles/Vol] 135 mmol/L Low 137-145 [facility] Comment on above: Performed By: #### A CBC ####Testing performed at [address] [address] Urea nitrogen [Mass/Vol] 14 mg/dL Normal 7-20 [facility] Comment on above: Performed By: #### A CBC ####Testing performed at [address] [address] C REACTIVE PROTEINon 02-04- 024 CRP [Mass/Vol] 21.0 mg/L High 0-10 [facility] Comment on above: Performed By: #### A CBC ####Testing performed at [address] [address] CBCon 02-05-2024 ABSOLUTE BAS 0.0 10*3/uL Normal 0.0-0.[address] [facility] Comment on above: Performed By: #### A CBC ####Testing performed at [address] [place] [address] ABSOLUTE EOS 0.1 10*3/uL Normal 0.0-0.[address] [facility] Comment on above: Performed By: #### A CBC ####Testing performed at [address] [address] ABSOLUTE NEUTROPHIL COUNT 3.1 10*3/uL Normal 1.4-6.5 [facility] Comment on above: Performed By: #### A CBC ####Testing performed at [address] [address] Basophils/100 WBC (Bld) 0.9 % Normal 0.0-2.0 [facility] Comment on above: Performed By: #### A CBC ####Testing performed at [address] [place] [address] DTYPE AUTO DIFF Normal [facility] Comment on above: Performed By: #### A CBC ####Testing performed at [address] [place] [address] Eosinophils/100 WBC (Bld) 2.6 % Normal 0.0-11.0 [facility] Comment on above: Performed By: #### A CBC ####Testing performed at [address] [place] [address] Lymphocytes (Bld) [#/Vol] 1.2 10*3/uL Normal 1.2-3.4 [facility] Comment on above: Performed By: #### A CBC ####Testing performed at [address] [place] [address] Lymphocytes/100 WBC (Bld) 23.7 % Normal 20.0-55.0 [facility] Comment on above: Performed By: #### A CBC ####Testing performed at [address] [address] Monocytes (Bld) [#/Vol] 0.6 10*3/uL Normal 0.0-0.7 [facility] Comment on above: Performed By: #### A CBC ####Testing performed at [address] [address] Monocytes/100 WBC (Bld) 11.8 % High 0.0-10.0 [facility] Comment on above: Performed By: #### A CBC ####Testing performed at [place] [id number] Neutrophils/100 WBC (Bld) 61.0 % Normal 37.0-75.0 [facility] Comment on above: Performed By: #### A CBC ####[place] [address] Erythrocyte distribution width (RBC) [Ratio] 15.2 % High 11.5-14.5 [facility] Comment on above: Performed By: #### A CBC ####Testing performed at [address] [address] Hematocrit (Bld) [Volume fraction] 30.8 % Low 36.0-48.0 [facility] Comment on above: Performed By: #### A CBC ####Testing performed at [address] [address] Hemoglobin (Bld) [Mass/Vol] 10.4 g/dL Low 12.0-16.0 [facility] Comment on above: Performed By: #### A CBC ####Testing performed at [address] [address] MCH (RBC) [Entitic mass] 32.3 pg Normal 26.0-35.0 [facility] Comment on above: Performed By: #### A CBC ####Testing performed at [address] [address] MCHC (RBC) [Mass/Vol] 33.7 g/dL Normal 27.0-37.0 [facility] Comment on above: Performed By: #### A CBC ####Testing performed at [address] [address] MCV (RBC) [Entitic vol] 95.8 fL Normal 80.0-100.0 [facility] Comment on above: Performed By: #### A CBC ####Testing performed at [address] [address] Platelet mean volume (Bld) [Entitic vol] 6.6 fL Low 7.4-11.0 [facility] Comment on above: Performed By: #### A CBC ####[place] [address] Platelets (Bld) [#/Vol] 378 10*3/uL Normal 130-400 [facility] Comment on above: Performed By: #### A CBC ####Testing performed at [address] [address] RBC (Bld) [#/Vol] 3.22 10*6/uL Low 4.0-5.4 [facility] Comment on above: Performed By: #### A CBC ####Testing performed at [address] [address] WBC (Bld) [#/Vol] 5.0 10*3/uL Normal 3.6-11.0 [facility] Comment on above: Performed By: #### A CBC ####Testing performed at [address] [address] Laboratory - Chemistry and C hemistry - challengeon 02-05-2024 Anion gap [Moles/Vol] 1 mmol/L Low [facility] Calcium [Mass/Vol] 8.8 mg/dL [facility] Chloride [Moles/Vol] 104 mmol/L [facility] CO2 [Moles/Vol] 30 mmol/L [facility] Creatinine [Mass/Vol] 0.80 mg/dL [facility] CRP [Mass/Vol] 21.0 mg/L High 0 - 10 MG/L [facility] GFR/1.73 sq M.predicted among blacks MDRD (S/P/Bld) [Vol rate/Area] 89 mL/min/{1.73_m2} ml/min/1.73sq .m [facility] GFR/1.73 sq M.predicted among non-blacks MDRD (S/P/Bld) [Vol rate/Area] 73 mL/min/{1.73_m2} ml/min/1.73sq .m [facility] Glucose post fast [Mass/Vol] 101 mg/dL High [facility] Potassium [Moles/Vol] 4.3 mmol/L [facility] Sodium [Moles/Vol] 135 mmol/L Low [facility] Urea nitrogen [Mass/Vol] 14 mg/dL [facility] Laboratory - Hematology and Cell countson 02-05-2024 Basophils/100 WBC (Bld) 0.9 % 0.0 - 2.0 % [facility] Differential cell count method Nom (Bld) AUTO DIFF % [facility] Eosinophils (Bld) [#/Vol] 0.1 10*3/uL 0.0 - 0.7 10*3/uL [facility] Eosinophils/100 WBC (Bld) 2.6 % 0.0 - 11.0 % [facility] Erythrocyte distribution width (RBC) [Ratio] 15.2 % High 11.5 - 14.5 % [facility] Hematocrit (Bld) [Volume fraction] 30.8 % Low 36.0 - 48.0 % [facility] Hemoglobin (Bld) [Mass/Vol] 10.4 g/dL Low [facility] Lymphocytes (Bld) [#/Vol] 1.2 10*3/uL 1.2 - 3.4 10*3/uL [facility] Lymphocytes/100 WBC (Bld) 23.7 % 20.0 - 55.0 % [facility] MCH (RBC) [Entitic mass] 32.3 pg 26.0 - 35.0 PG [facility] MCHC (RBC) [Mass/Vol] 33.7 g/dL [facility] MCV (RBC) [Entitic vol] 95.8 fL [facility] Monocytes (Bld) [#/Vol] 0.6 10*3/uL 0.0 - 0.7 10*3/uL [facility] Monocytes/100 WBC (Bld) 11.8 % High 0.0 - 10.0 % [facility] Neutrophils (Bld) [#/Vol] 3.1 10*3/uL 1.4 - 6.5 10*3/uL [facility] Neutrophils/100 WBC (Bld) 61.0 % 37.0 - 75.0 % [facility] Platelet mean volume (Bld) [Entitic vol] 6.6 fL Low [facility] Platelets (Bld) [#/Vol] 378 10*3/uL 130 - 400 10*3/uL [facility] RBC (Bld) [#/Vol] 3.22 10*6/uL Low 4.0 - 5.4 10*6/uL [facility] WBC (Bld) [#/Vol] 5.0 10*3/uL 3.6 - 11.0 10*3/uL [facility] No Panel Informationon 02-04 GFR COMMENT Average GFR for 70+ years old = 75. [facility] Interpretation and review of laboratory results Abnormal [facility] ABSOLUTE BASOPHIL COUNT 0.0 10*3/uL 0.0 - 0.2 10*3/uL [facility] Interpretation and review of laboratory results Abnormal [facility] BMP FASTINGon 02-04-2024 Anion gap [Moles/Vol] 1 mmol/L Low 8-16 [facility] Calcium [Mass/Vol] 8.8 mg/dL Normal 8.4-10.2 [facility] Chloride [Moles/Vol] 104 mmol/L Normal 98-107 [facility] Comment on above: Result Comment: Shonda matthews note: Triglyceride levels of 600mg/dL or higher may positively bias chloride results by approximately 2.1 mmol CO2 [Moles/Vol] 31 mmol/L High 22-30 [facility] Creatinine [Mass/Vol] 0.80 mg/dL Normal 0.7-1.2 [facility] EST. GFR, 89 ml/min/1.73sq.m Normal [facility] EST. GFR,Non 73 ml/min/1.73sq.m Normal [facility] GFR Information Average GFR for 70+ years old = 75. Normal [facility] Comment on above: Result Comment: Hospital Admissions Clerk aviva Kidney disease, GFR = <60. Kidney [...] higher Potassium [Moles/Vol] 4.4 mmol/L Normal 3.5-5.1 [facility] Sodium [Moles/Vol] 136 mmol/L Low 137-145 [facility] Urea nitrogen [Mass/Vol] 18 mg/dL Normal 7-20 [facility] C REACTIVE PROTEINon 024 CRP [Mass/Vol] 21.4 mg/L High 0-10 [facility] CBCon 02-04-2024 ABSOLUTE BAS 0.0 10*3/uL Normal 0.0-0.[address] [facility] ABSOLUTE EOS 0.2 10*3/uL Normal 0.0-0.[address] [facility] ABSOLUTE NEUTROPHIL COUNT 3.5 10*3/uL Normal 1.4-6.5 [...] MCHC (RBC) [Mass/Vol] 33.8 g/dL Normal 27.0-37.0 [facility] MCV (RBC) [Entitic vol] 95.7 fL Normal 80.0-100.0 [facility] Platelet mean volume (Bld) [Entitic vol] 6.8 fL Low 7.4-11.0 [facility] Platelets (Bld) [#/Vol] 415 10*3/uL High 130-400 [facility] RBC (Bld) [#/Vol] 3.14 10*6/uL Low 4.0-5.4 [facility] WBC (Bld) [#/Vol] 6.0 10*3/uL Normal 3.6-11.0 [facility] Laboratory - Chemistry and C hemistry - challengeon 02-04-2024 Anion gap [Moles/Vol] 1 mmol/L Low [facility] Calcium [Mass/Vol] 8.8 mg/dL [facility] Chloride [Moles/Vol] 104 mmol/L [facility] CO2 [Moles/Vol] 31 mmol/L High [facility] Creatinine [Mass/Vol] 0.80 mg/dL [facility] CRP [Mass/Vol] 21.4 mg/L High 0 - 10 MG/L [facility] GFR/1.73 sq M.predicted among blacks MDRD (S/P/Bld) [Vol rate/Area] 89 mL/min/{1.73_m2} ml/min/1.73sq .m [facility] GFR/1.73 sq M.predicted among non-blacks MDRD (S/P/Bld) [Vol rate/Area] 73 mL/min/{1.73_m2} ml/min/1.73sq .m [facility] Glucose post fast [Mass/Vol] 96 mg/dL [facility] Potassium [Moles/Vol] 4.4 mmol/L [facility] Sodium [Moles/Vol] 136 mmol/L Low [facility] Urea nitrogen [Mass/Vol] 18 mg/dL [facility] Laboratory - Hematology and Cell countson 02-04-2024 Basophils/100 WBC (Bld) 0.7 % 0.0 - 2.0 % [facility] Differential cell count method Nom (Bld) AUTO DIFF % [facility] Eosinophils (Bld) [#/Vol] 0.2 10*3/uL 0.0 - 0.7 10*3/uL [facility] Eosinophils/100 WBC (Bld) 3.2 % 0.0 - 11.0 % [facility] Erythrocyte distribution width (RBC) [Ratio] 15.5 % High 11.5 - 14.5 % [facility] Hematocrit (Bld) [Volume fraction] 30.0 % Low 36.0 - 48.0 % [facility] Hemoglobin (Bld) [Mass/Vol] 10.2 g/dL Low [facility] Lymphocytes (Bld) [#/Vol] 1.5 10*3/uL 1.2 - 3.4 10*3/uL [facility] Lymphocytes/100 WBC (Bld) 24.7 % 20.0 - 55.0 % [facility] MCH (RBC) [Entitic mass] 32.4 pg 26.0 - 35.0 PG [facility] MCHC (RBC) [Mass/Vol] 33.8 g/dL [facility] MCV (RBC) [Entitic vol] 95.7 fL [facility] Monocytes (Bld) [#/Vol] 0.8 10*3/uL High 0.0 - 0.7 10*3/uL [facility] Monocytes/100 WBC (Bld) 12.5 % High 0.0 - 10.0 % [facility] Neutrophils (Bld) [#/Vol] 3.5 10*3/uL 1.4 - 6.5 10*3/uL [facility] Neutrophils/100 WBC (Bld) 58.9 % 37.0 - 75.0 % [facility] Platelet mean volume (Bld) [Entitic vol] 6.8 fL Low [facility] Platelets (Bld) [#/Vol] 415 10*3/uL High 130 - 400 10*3/uL [facility] RBC (Bld) [#/Vol] 3.14 10*6/uL Low 4.0 - 5.4 10*6/uL [facility] WBC (Bld) [#/Vol] 6.0 10*3/uL 3.6 - 11.0 10*3/uL [facility] No Panel Informationon 02-03 ABSOLUTE BASOPHIL COUNT 0.0 10*3/uL 0.0 - 0.2 10*3/uL [facility] Interpretation and review of laboratory results Abnormal [facility] GFR COMMENT Average GFR for 70+ years old = 75. [facility] Interpretation and review of laboratory results Abnormal [facility] BMP FASTINGon 02-03-2024 Anion gap [Moles/Vol] 2 mmol/L Low 8-16 [facility] Calcium [Mass/Vol] 9.1 mg/dL Normal 8.4-10.2 [facility] Chloride [Moles/Vol] 104 mmol/L Normal 98-107 [facility] Comment on above: Result Comment: Shonda matthews note: Triglyceride levels of 600mg/dL or higher may positively bias chloride results by approximately 2.1 mmol CO2 [Moles/Vol] 29 mmol/L Normal 22-30 [facility] Creatinine [Mass/Vol] 0.90 mg/dL Normal 0.7-1.2 [facility] EST. GFR, 77 ml/min/1.73sq.m Normal [facility] EST. GFR,Non 64 ml/min/1.73sq.m Normal [facility] GFR Information Average GFR for 70+ years old = 75. Normal [facility] Comment on above: Result Comment: Hospital Admissions Clerk aviva Kidney disease, GFR = <60. Kidney [...] higher Potassium [Moles/Vol] 4.4 mmol/L Normal 3.5-5.1 [facility] Sodium [Moles/Vol] 135 mmol/L Low 137-145 [facility] Urea nitrogen [Mass/Vol] 17 mg/dL Normal 7-20 [facility] C REACTIVE PROTEINon 024 CRP [Mass/Vol] 21.9 mg/L High 0-10 [facility] CBCon 02-03-2024 ABSOLUTE BAS 0.1 10*3/uL Normal 0.0-0.[address] [facility] ABSOLUTE EOS 0.2 10*3/uL Normal 0.0-0.[address] [facility] ABSOLUTE NEUTROPHIL COUNT 3.6 10*3/uL Normal 1.4-6.5 [...] MCHC (RBC) [Mass/Vol] 33.7 g/dL Normal 27.0-37.0 [facility] MCV (RBC) [Entitic vol] 95.8 fL Normal 80.0-100.0 [facility] Platelet mean volume (Bld) [Entitic vol] 6.4 fL Low 7.4-11.0 [facility] Platelets (Bld) [#/Vol] 472 10*3/uL High 130-400 [facility] RBC (Bld) [#/Vol] 3.31 10*6/uL Low 4.0-5.4 [facility] WBC (Bld) [#/Vol] 6.3 10*3/uL Normal 3.6-11.0 [facility] Laboratory - Chemistry and C hemistry - challengeon 02-03-2024 Bilirubin Ql (U) Negative NEGATIVE [facility] pH (U) 7.0 [pH] 5.0 - 7.0 [facility] Specific gravity (U) [Rel density] 1.015 1.010 - 1.025 [facility] Urobilinogen (U) [Mass/Vol] 0.2 mg/dL [facility] Anion gap [Moles/Vol] 2 mmol/L Low [facility] Calcium [Mass/Vol] 9.1 mg/dL [facility] Chloride [Moles/Vol] 104 mmol/L [facility] CO2 [Moles/Vol] 29 mmol/L [facility] Creatinine [Mass/Vol] 0.90 mg/dL [facility] CRP [Mass/Vol] 21.9 mg/L High 0 - 10 MG/L [facility] GFR/1.73 sq M.predicted among blacks MDRD (S/P/Bld) [Vol rate/Area] 77 mL/min/{1.73_m2} ml/min/1.73sq .m [facility] GFR/1.73 sq M.predicted among non-blacks MDRD (S/P/Bld) [Vol rate/Area] 64 mL/min/{1.73_m2} ml/min/1.73sq .m [facility] Glucose post fast [Mass/Vol] 100 mg/dL [facility] Potassium [Moles/Vol] 4.4 mmol/L [facility] Sodium [Moles/Vol] 135 mmol/L Low [facility] Urea nitrogen [Mass/Vol] 17 mg/dL [facility] Laboratory - Hematology and Cell countson 02-03-2024 Hemoglobin Ql (U) Negative NEGATIVE [facility] Basophils/100 WBC (Bld) 1.2 % 0.0 - 2.0 % [facility] Differential cell count method Nom (Bld) AUTO DIFF % [facility] Eosinophils (Bld) [#/Vol] 0.2 10*3/uL 0.0 - 0.7 10*3/uL [facility] Eosinophils/100 WBC (Bld) 3.4 % 0.0 - 11.0 % [facility] Erythrocyte distribution width (RBC) [Ratio] 15.0 % High 11.5 - 14.5 % [facility] Hematocrit (Bld) [Volume fraction] 31.8 % Low 36.0 - 48.0 % [facility] Hemoglobin (Bld) [Mass/Vol] 10.7 g/dL Low [facility] Lymphocytes (Bld) [#/Vol] 1.6 10*3/uL 1.2 - 3.4 10*3/uL [facility] Lymphocytes/100 WBC (Bld) 26.1 % 20.0 - 55.0 % [facility] MCH (RBC) [Entitic mass] 32.3 pg 26.0 - 35.0 PG [facility] MCHC (RBC) [Mass/Vol] 33.7 g/dL [facility] MCV (RBC) [Entitic vol] 95.8 fL [facility] Monocytes (Bld) [#/Vol] 0.7 10*3/uL 0.0 - 0.7 10*3/uL [facility] Monocytes/100 WBC (Bld) 11.8 % High 0.0 - 10.0 % [facility] Neutrophils (Bld) [#/Vol] 3.6 10*3/uL 1.4 - 6.5 10*3/uL [facility] Neutrophils/100 WBC (Bld) 57.5 % 37.0 - 75.0 % [facility] Platelet mean volume (Bld) [Entitic vol] 6.4 fL Low [facility] Platelets (Bld) [#/Vol] 472 10*3/uL High 130 - 400 10*3/uL [facility] RBC (Bld) [#/Vol] 3.31 10*6/uL Low 4.0 - 5.4 10*6/uL [facility] WBC (Bld) [#/Vol] 6.3 10*3/uL 3.6 - 11.0 10*3/uL [facility] Laboratory - Specimen inform ationon 02-03-2024 Clarity (U) CLEAR CLEAR [facility] Color (U) YELLOW YELLOW [facility] Laboratory - Urinalysison Glucose Test strip (U) [Mass/Vol] Negative NEGATIVE mg/dl [facility] Ketones (U) [Mass/Vol] Negative NEGATIVE mg/dl [facility] Leukocyte esterase Test strip Ql (U) Negative NEGATIVE [facility] Nitrite Ql (U) Negative NEGATIVE [facility] Protein Ql (U) Negative NEGATIVE mg/dl [facility] No Panel Informationon 02-02 [facility] GFR COMMENT Average GFR for 70+ years old = 75. [facility] Interpretation and review of laboratory results Abnormal [facility] ABSOLUTE BASOPHIL COUNT 0.1 10*3/uL 0.0 - 0.2 10*3/uL [facility] Interpretation and review of laboratory results Abnormal [facility] URINE MACROSCOPICon 02-03-20 Bilirubin Ql (U) Negative Normal NEGATIVE [facility] Clarity (U) CLEAR Normal CLEAR [facility] Color (U) YELLOW Normal YELLOW [facility] Glucose Ql (U) Negative Normal NEGATIVE [facility] pH (U) 7.0 [pH] Normal 5.0-7.0 [facility] URINE HEMOGLOBIN Negative Normal NEGATIVE [facility] URINE KETONE Negative Normal NEGATIVE [facility] URINE LEUKOTEST Negative Normal NEGATIVE [facility] URINE NITRATES Negative Normal NEGATIVE [facility] URINE SPEC GRAVITY 1.015 Normal 1.010-1.025 [facility] URINE TOTAL PROTEIN Negative Normal NEGATIVE [facility] Urobilinogen Qn (U) 0.2 {Monique'U}/dL Normal 0.2-1.0 [facility] BMP FASTINGon 02-02-2024 Anion gap [Moles/Vol] 1 mmol/L Low 8-16 [facility] Comment on above: Performed By: #### A CBC #### [place] [address] Calcium [Mass/Vol] 8.9 mg/dL Normal 8.4-10.2 [facility] Comment on above: Performed By: #### A CBC #### Testing performed at [place] [id number] Chloride [Moles/Vol] 103 mmol/L Normal 98-107 [facility] Comment on above: Result Comment: Plea se note: Triglyceride levels of 600mg/dL or higher may positively bias chloride results by approximately 2.1 mmol Performed By: #### A CBC #### Testing performed at [address] [address] CO2 [Moles/Vol] 30 mmol/L Normal 22-30 [facility] Comment on above: Performed By: #### A CBC #### Testing performed at [address] [address] Creatinine [Mass/Vol] 0.90 mg/dL Normal 0.7-1.2 [facility] Comment on above: Performed By: #### A CBC #### Testing performed at [address] [address] EST. GFR, 77 ml/min/1.73sq.m [facility] Comment on above: Performed By: #### A CBC #### Testing performed at [address] [place] [address] EST. GFR,Non 64 ml/min/1.73sq.m [facility] Comment on above: Performed By: #### A CBC #### Testing performed at [address] [address] GFR Information Average GFR for 70+ years old = 75. Normal [facility] Comment on above: Result Comment: Hospital Admissions Clerk aviva Kidney disease, GFR = <60. Kidney failure, GFR = <15. The GFR estimate is not adjusted for extreme body surface area or acute process, nor has it been validated for women or ethnic groups other than and . Performed By: #### A CBC #### Testing performed at [address] [address] Glucose [Mass/Vol] 103 mg/dL High 70-100 [facility] Comment on above: Result Comment: NORMAL <100 mg/dL PREDIABETES 101-126 mg/dL DIABETES 126 mg/dL or higher Performed By: #### A CBC #### Testing performed at [address] [address] Potassium [Moles/Vol] 4.2 mmol/L Normal 3.5-5.1 [facility] Comment on above: Performed By: #### A CBC #### Testing performed at [address] [address] Sodium [Moles/Vol] 134 mmol/L Low 137-145 [facility] Comment on above: Performed By: #### A CBC #### Testing performed at [address] [address] Urea nitrogen [Mass/Vol] 18 mg/dL Normal 7-20 [facility] Comment on above: Performed By: #### A CBC #### Testing performed at [address] [place] [address] C REACTIVE PROTEINon 024 CRP [Mass/Vol] 26.3 mg/L High 0-10 [facility] Comment on above: Performed By: #### A CBC #### Testing performed at [address] [address] CBCon 02-02-2024 ABSOLUTE BAS 0.1 10*3/uL Normal 0.0-0.[address] [facility] Comment on above: Performed By: #### A CBC #### Testing performed at [address] [address] ABSOLUTE EOS 0.2 10*3/uL Normal 0.0-0.[address] [facility] Comment on above: Performed By: #### A CBC #### Testing performed at [address] [address] ABSOLUTE NEUTROPHIL COUNT 3.4 10*3/uL Normal 1.4-6.5 [facility] Comment on above: Performed By: #### A CBC #### Testing performed at [address] [address] Basophils/100 WBC (Bld) 0.9 % Normal 0.0-2.0 [facility] Comment on above: Performed By: #### A CBC #### Testing performed at [address] [place] [address] DTYPE AUTO DIFF Normal [facility] Comment on above: Performed By: #### A CBC #### Testing performed at [address] [address] Eosinophils/100 WBC (Bld) 3.7 % Normal 0.0-11.0 [facility] Comment on above: Performed By: #### A CBC #### Testing performed at [address] [address] Lymphocytes (Bld) [#/Vol] 1.6 10*3/uL Normal 1.2-3.4 [facility] Comment on above: Performed By: #### A CBC #### Testing performed at [place] [address] [place] [address] Lymphocytes/100 WBC (Bld) 26.5 % Normal 20.0-55.0 [facility] Comment on above: Performed By: #### A CBC #### Testing performed at [address] [address] Monocytes (Bld) [#/Vol] 0.8 10*3/uL High 0.0-0.7 [facility] Comment on above: Performed By: #### A CBC #### Testing performed at [address] [address] Monocytes/100 WBC (Bld) 12.8 % High 0.0-10.0 [facility] Comment on above: Performed By: #### A CBC #### Testing performed at [address] [address] Neutrophils/100 WBC (Bld) 56.1 % Normal 37.0-75.0 [facility] Comment on above: Performed By: #### A CBC #### Testing performed at [address] [address] Erythrocyte distribution width (RBC) [Ratio] 15.2 % High 11.5-14.5 [facility] Comment on above: Performed By: #### A CBC #### Testing performed at [address] [place] [address] Hematocrit (Bld) [Volume fraction] 31.1 % Low 36.0-48.0 [facility] Comment on above: Performed By: #### A CBC #### Testing performed at [address] [place] [address] Hemoglobin (Bld) [Mass/Vol] 10.5 g/dL Low 12.0-16.0 [facility] Comment on above: Performed By: #### A CBC #### Testing performed at [address] [address] MCH (RBC) [Entitic mass] 32.4 pg Normal 26.0-35.0 [facility] Comment on above: Performed By: #### A CBC #### Testing performed at [address] [address] MCHC (RBC) [Mass/Vol] 33.8 g/dL Normal 27.0-37.0 [facility] Comment on above: Performed By: #### A CBC #### Testing performed at [address] [address] MCV (RBC) [Entitic vol] 95.9 fL Normal 80.0-100.0 [facility] Comment on above: Performed By: #### A CBC #### Testing performed at [address] [address] Platelet mean volume (Bld) [Entitic vol] 6.5 fL Low 7.4-11.0 [facility] Comment on above: Performed By: #### A CBC #### Testing performed at [address] [address] Platelets (Bld) [#/Vol] 429 10*3/uL High 130-400 [facility] Comment on above: Performed By: #### A CBC #### Testing performed at [address] [address] RBC (Bld) [#/Vol] 3.24 10*6/uL Low 4.0-5.4 [facility] Comment on above: Performed By: #### A CBC #### Testing performed at [address] [address] WBC (Bld) [#/Vol] 6.0 10*3/uL Normal 3.6-11.0 [facility] Comment on above: Performed By: #### A CBC #### Testing performed at [place] [address] [place] [address] Laboratory - Chemistry and C hemistry - challengeon 02-02-2024 Anion gap [Moles/Vol] 1 mmol/L Low [facility] Calcium [Mass/Vol] 8.9 mg/dL [facility] Chloride [Moles/Vol] 103 mmol/L [facility] CO2 [Moles/Vol] 30 mmol/L [facility] Creatinine [Mass/Vol] 0.90 mg/dL [facility] CRP [Mass/Vol] 26.3 mg/L High 0 - 10 MG/L [facility] GFR/1.73 sq M.predicted among blacks MDRD (S/P/Bld) [Vol rate/Area] 77 mL/min/{1.73_m2} ml/min/1.73sq .m [facility] GFR/1.73 sq M.predicted among non-blacks MDRD (S/P/Bld) [Vol rate/Area] 64 mL/min/{1.73_m2} ml/min/1.73sq .m [facility] Glucose post fast [Mass/Vol] 103 mg/dL High [facility] Potassium [Moles/Vol] 4.2 mmol/L [facility] Sodium [Moles/Vol] 134 mmol/L Low [facility] Urea nitrogen [Mass/Vol] 18 mg/dL [facility] Laboratory - Hematology and Cell countson 02-02-2024 Basophils/100 WBC (Bld) 0.9 % 0.0 - 2.0 % [facility] Differential cell count method Nom (Bld) AUTO DIFF % [facility] Eosinophils (Bld) [#/Vol] 0.2 10*3/uL 0.0 - 0.7 10*3/uL [facility] Eosinophils/100 WBC (Bld) 3.7 % 0.0 - 11.0 % [facility] Erythrocyte distribution width (RBC) [Ratio] 15.2 % High 11.5 - 14.5 % [facility] Hematocrit (Bld) [Volume fraction] 31.1 % Low 36.0 - 48.0 % [facility] Hemoglobin (Bld) [Mass/Vol] 10.5 g/dL Low [facility] Lymphocytes (Bld) [#/Vol] 1.6 10*3/uL 1.2 - 3.4 10*3/uL [facility] Lymphocytes/100 WBC (Bld) 26.5 % 20.0 - 55.0 % [facility] MCH (RBC) [Entitic mass] 32.4 pg 26.0 - 35.0 PG [facility] MCHC (RBC) [Mass/Vol] 33.8 g/dL [facility] MCV (RBC) [Entitic vol] 95.9 fL [facility] Monocytes (Bld) [#/Vol] 0.8 10*3/uL High 0.0 - 0.7 10*3/uL [facility] Monocytes/100 WBC (Bld) 12.8 % High 0.0 - 10.0 % [facility] Neutrophils (Bld) [#/Vol] 3.4 10*3/uL 1.4 - 6.5 10*3/uL [facility] Neutrophils/100 WBC (Bld) 56.1 % 37.0 - 75.0 % [facility] Platelet mean volume (Bld) [Entitic vol] 6.5 fL Low [facility] Platelets (Bld) [#/Vol] 429 10*3/uL High 130 - 400 10*3/uL [facility] RBC (Bld) [#/Vol] 3.24 10*6/uL Low 4.0 - 5.4 10*6/uL [facility] WBC (Bld) [#/Vol] 6.0 10*3/uL 3.6 - 11.0 10*3/uL [facility] No Panel Informationon 02-01 GFR COMMENT Average GFR for 70+ years old = 75. [facility] Interpretation and review of laboratory results Abnormal [facility] ABSOLUTE BASOPHIL COUNT 0.1 10*3/uL 0.0 - 0.2 10*3/uL [facility] Interpretation and review of laboratory results Abnormal [facility] BMP FASTINGon 02-01-2024 Anion gap [Moles/Vol] 2 mmol/L Low 03-03 [facility] Calcium [Mass/Vol] 8.9 mg/dL Normal 8.4-10.2 [facility] Chloride [Moles/Vol] 103 mmol/L Normal 98-107 [facility] Comment on above: Result Comment: Shonda matthews note: Triglyceride levels of 600mg/dL or higher may positively bias chloride results by approximately 2.1 mmol CO2 [Moles/Vol] 28 mmol/L Normal 22-30 [facility] Creatinine [Mass/Vol] 0.90 mg/dL Normal 0.7-1.2 [facility] EST. GFR, 77 ml/min/1.73sq.m Normal [facility] EST. GFR,Non 64 ml/min/1.73sq.m Normal [facility] GFR Information Average GFR for 70+ years old = 75. Normal [facility] Comment on above: Result Comment: Hospital Admissions Clerk aviva Kidney disease, GFR = <60. Kidney [...] higher Potassium [Moles/Vol] 4.4 mmol/L Normal 3.5-5.1 [facility] Sodium [Moles/Vol] 133 mmol/L Low 137-145 [facility] Urea nitrogen [Mass/Vol] 14 mg/dL Normal 7-20 [facility] C REACTIVE PROTEINon 024 CRP [Mass/Vol] 26.1 mg/L High 0-10 [facility] CBCon 02-01-2024 ABSOLUTE BAS 0.1 10*3/uL Normal 0.0-0.[address] [facility] ABSOLUTE EOS 0.1 10*3/uL Normal 0.0-0.[address] [facility] ABSOLUTE NEUTROPHIL COUNT 3.0 10*3/uL Normal 1.4-6.5 [...] MCHC (RBC) [Mass/Vol] 33.9 g/dL Normal 27.0-37.0 [facility] MCV (RBC) [Entitic vol] 95.5 fL Normal 80.0-100.0 [facility] Platelet mean volume (Bld) [Entitic vol] 6.4 fL Low 7.4-11.0 [facility] Platelets (Bld) [#/Vol] 479 10*3/uL High 130-400 [facility] RBC (Bld) [#/Vol] 3.29 10*6/uL Low 4.0-5.4 [facility] WBC (Bld) [#/Vol] 5.8 10*3/uL Normal 3.6-11.0 [facility] Laboratory - Chemistry and C hemistry - challengeon 02-01-2024 Anion gap [Moles/Vol] 2 mmol/L Low [facility] Calcium [Mass/Vol] 8.9 mg/dL [facility] Chloride [Moles/Vol] 103 mmol/L [facility] CO2 [Moles/Vol] 28 mmol/L [facility] Creatinine [Mass/Vol] 0.90 mg/dL [facility] CRP [Mass/Vol] 26.1 mg/L High 0 - 10 MG/L [facility] GFR/1.73 sq M.predicted among blacks MDRD (S/P/Bld) [Vol rate/Area] 77 mL/min/{1.73_m2} ml/min/1.73sq .m [facility] GFR/1.73 sq M.predicted among non-blacks MDRD (S/P/Bld) [Vol rate/Area] 64 mL/min/{1.73_m2} ml/min/1.73sq .m [facility] Glucose post fast [Mass/Vol] 98 mg/dL [facility] Potassium [Moles/Vol] 4.4 mmol/L [facility] Sodium [Moles/Vol] 133 mmol/L Low [facility] Urea nitrogen [Mass/Vol] 14 mg/dL [facility] Laboratory - Hematology and Cell countson 02-01-2024 Basophils/100 WBC (Bld) 1.1 % 0.0 - 2.0 % [facility] Differential cell count method Nom (Bld) AUTO DIFF % [facility] Eosinophils (Bld) [#/Vol] 0.1 10*3/uL 0.0 - 0.7 10*3/uL [facility] [facility] [place] Eosinophils/100 WBC (Bld) 2.6 % 0.0 - 11.0 % [facility] Erythrocyte distribution width (RBC) [Ratio] 14.8 % High 11.5 - 14.5 % [facility] Hematocrit (Bld) [Volume fraction] 31.4 % Low 36.0 - 48.0 % [facility] Hemoglobin (Bld) [Mass/Vol] 10.6 g/dL Low [facility] Lymphocytes (Bld) [#/Vol] 1.7 10*3/uL 1.2 - 3.4 10*3/uL [facility] Lymphocytes/100 WBC (Bld) 28.9 % 20.0 - 55.0 % [facility] MCH (RBC) [Entitic mass] 32.4 pg 26.0 - 35.0 PG [facility] MCHC (RBC) [Mass/Vol] 33.9 g/dL [facility] MCV (RBC) [Entitic vol] 95.5 fL [facility] Monocytes (Bld) [#/Vol] 0.9 10*3/uL High 0.0 - 0.7 10*3/uL [facility] Monocytes/100 WBC (Bld) 15.1 % High 0.0 - 10.0 % [facility] Neutrophils (Bld) [#/Vol] 3.0 10*3/uL 1.4 - 6.5 10*3/uL [facility] Neutrophils/100 WBC (Bld) 52.3 % 37.0 - 75.0 % [facility] Platelet mean volume (Bld) [Entitic vol] 6.4 fL Low [facility] Platelets (Bld) [#/Vol] 479 10*3/uL High 130 - 400 10*3/uL [facility] RBC (Bld) [#/Vol] 3.29 10*6/uL Low 4.0 - 5.4 10*6/uL [facility] WBC (Bld) [#/Vol] 5.8 10*3/uL 3.6 - 11.0 10*3/uL [facility] No Panel Informationon 01-31 GFR COMMENT Average GFR for 70+ years old = 75. [facility] Interpretation and review of laboratory results Abnormal [facility] ABSOLUTE BASOPHIL COUNT 0.1 10*3/uL 0.0 - 0.2 10*3/uL [facility] Interpretation and review of laboratory results Abnormal [facility] BMP FASTINGon 01-31-2024 Anion gap [Moles/Vol] Negative Normal 8-16 [facility] Calcium [Mass/Vol] 8.7 mg/dL Normal 8.4-10.2 [facility] Chloride [Moles/Vol] 102 mmol/L Normal 98-107 [facility] Comment on above: Result Comment: Shonda matthews note: Triglyceride levels of 600mg/dL or higher may positively bias chloride results by approximately 2.1 mmol CO2 [Moles/Vol] 33 mmol/L High 22-30 [facility] Creatinine [Mass/Vol] 1.10 mg/dL Normal 0.7-1.2 [facility] EST. GFR, 61 ml/min/1.73sq.m Normal [facility] EST. GFR,Non 51 ml/min/1.73sq.m Normal [facility] GFR Information Average GFR for 70+ years old = 75. Normal [facility] Comment on above: Result Comment: Hospital Admissions Clerk aviva Kidney disease, GFR = <60. Kidney [...] higher Potassium [Moles/Vol] 4.5 mmol/L Normal 3.5-5.1 [facility] Sodium [Moles/Vol] 134 mmol/L Low 137-145 [facility] Urea nitrogen [Mass/Vol] 12 mg/dL Normal 7-20 [facility] C REACTIVE PROTEINon 024 CRP [Mass/Vol] 27.5 mg/L High 0-10 [facility] CBCon 01-31-2024 ABSOLUTE BAS 0.1 10*3/uL Normal 0.0-0.[address] [facility] ABSOLUTE EOS 0.2 10*3/uL Normal 0.0-0.[address] [facility] ABSOLUTE NEUTROPHIL COUNT 2.5 10*3/uL Normal 1.4-6.5 [...] MCHC (RBC) [Mass/Vol] 34.1 g/dL Normal 27.0-37.0 [facility] MCV (RBC) [Entitic vol] 95.2 fL Normal 80.0-100.0 [facility] Platelet mean volume (Bld) [Entitic vol] 6.3 fL Low 7.4-11.0 [facility] Platelets (Bld) [#/Vol] 439 10*3/uL High 130-400 [facility] RBC (Bld) [#/Vol] 3.08 10*6/uL Low 4.0-5.4 [facility] WBC (Bld) [#/Vol] 5.1 10*3/uL Normal 3.6-11.0 [facility] LIPASE,SERUMon 01-31-2024 LIPASE,SERUM 43 U/L Normal 23-300 [facility] LIVER PANELon 01-31-2024 Albumin [Mass/Vol] 3.0 g/dL Low 3.5-5.0 [facility] ALP [Catalytic activity/Vol] 107 U/L Normal 38-126 [facility] ALT [Catalytic activity/Vol] 13 U/L Normal <35 [facility] AST [Catalytic activity/Vol] 26 U/L Normal 14-36 [facility] Bilirubin [Mass/Vol] 0.2 mg/dL Normal 0.2-1.3 [facility] Bilirubin.indirect [Mass/Vol] 0.2 mg/dL Normal 0-0.4 [facility] Protein [Mass/Vol] 6.1 g/dL Low 6.3-8.2 [facility] Laboratory - Chemistry and C hemistry - challengeon 01-31-2024 Prealbumin [Mass/Vol] 11.9 mg/dL Low [facility] Albumin [Mass/Vol] 3.0 g/dL Low [facility] ALP [Catalytic activity/Vol] 107 U/L [facility] ALT [Catalytic activity/Vol] 13 U/L NINF [facility] Anion gap [Moles/Vol] Negative [facility] AST [Catalytic activity/Vol] 26 U/L [facility] Bilirubin [Mass/Vol] 0.2 mg/dL [facility] Bilirubin.direct [Mass/Vol] 0.2 mg/dL [facility] Calcium [Mass/Vol] 8.7 mg/dL [facility] Chloride [Moles/Vol] 102 mmol/L [facility] CO2 [Moles/Vol] 33 mmol/L High [facility] Creatinine [Mass/Vol] 1.10 mg/dL [facility] CRP [Mass/Vol] 27.5 mg/L High 0 - 10 MG/L [facility] GFR/1.73 sq M.predicted among blacks MDRD (S/P/Bld) [Vol rate/Area] 61 mL/min/{1.73_m2} ml/min/1.73sq .m [facility] GFR/1.73 sq M.predicted among non-blacks MDRD (S/P/Bld) [Vol rate/Area] 51 mL/min/{1.73_m2} ml/min/1.73sq .m [facility] Glucose post fast [Mass/Vol] 94 mg/dL [facility] Lipase [Catalytic activity/Vol] 43 U/L 23 - 300 U/L [facility] Potassium [Moles/Vol] 4.5 mmol/L [facility] Protein [Mass/Vol] 6.1 g/dL Low [facility] Sodium [Moles/Vol] 134 mmol/L Low [facility] Urea nitrogen [Mass/Vol] 12 mg/dL [facility] Laboratory - Hematology and Cell countson 01-31-2024 Basophils/100 WBC (Bld) 1.4 % 0.0 - 2.0 % [facility] Differential cell count method Nom (Bld) AUTO DIFF % [facility] Eosinophils (Bld) [#/Vol] 0.2 10*3/uL 0.0 - 0.7 10*3/uL [facility] Eosinophils/100 WBC (Bld) 3.6 % 0.0 - 11.0 % [facility] Erythrocyte distribution width (RBC) [Ratio] 14.9 % High 11.5 - 14.5 % [facility] Hematocrit (Bld) [Volume fraction] 29.3 % Low 36.0 - 48.0 % [facility] Hemoglobin (Bld) [Mass/Vol] 10.0 g/dL Low [facility] Lymphocytes (Bld) [#/Vol] 1.5 10*3/uL 1.2 - 3.4 10*3/uL [facility] Lymphocytes/100 WBC (Bld) 28.8 % 20.0 - 55.0 % [facility] MCH (RBC) [Entitic mass] 32.5 pg 26.0 - 35.0 PG [facility] MCHC (RBC) [Mass/Vol] 34.1 g/dL [facility] MCV (RBC) [Entitic vol] 95.2 fL [facility] Monocytes (Bld) [#/Vol] 0.8 10*3/uL High 0.0 - 0.7 10*3/uL [facility] Monocytes/100 WBC (Bld) 16.5 % High 0.0 - 10.0 % [facility] Neutrophils (Bld) [#/Vol] 2.5 10*3/uL 1.4 - 6.5 10*3/uL [facility] Neutrophils/100 WBC (Bld) 49.7 % 37.0 - 75.0 % [facility] Platelet mean volume (Bld) [Entitic vol] 6.3 fL Low [facility] Platelets (Bld) [#/Vol] 439 10*3/uL High 130 - 400 10*3/uL [facility] RBC (Bld) [#/Vol] 3.08 10*6/uL Low 4.0 - 5.4 10*6/uL [facility] WBC (Bld) [#/Vol] 5.1 10*3/uL 3.6 - 11.0 10*3/uL [facility] No Panel Informationon 01-30 Interpretation and review of laboratory results Abnormal [facility] GFR COMMENT Average GFR for 70+ years old = 75. [facility] Interpretation and review of laboratory results Abnormal [facility] ABSOLUTE BASOPHIL COUNT 0.1 10*3/uL 0.0 - 0.2 10*3/uL [facility] Interpretation and review of laboratory results Abnormal [facility] PREALBUMINon 01-31-2024 Prealbumin [Mass/Vol] 11.9 mg/dL Low 17.6-36.0 [facility] BMP FASTINGon 01-30-2024 Anion gap [Moles/Vol] 3 mmol/L Low 8-16 [facility] Calcium [Mass/Vol] 8.6 mg/dL Normal 8.4-10.2 [facility] Chloride [Moles/Vol] 101 mmol/L Normal 98-107 [facility] Comment on above: Result Comment: Shonda mattehws note: Triglyceride levels of 600mg/dL or higher may positively bias chloride results by approximately 2.1 mmol CO2 [Moles/Vol] 31 mmol/L High 22-30 [facility] Creatinine [Mass/Vol] 1.00 mg/dL Normal 0.7-1.2 [facility] EST. GFR, 68 ml/min/1.73sq.m [facility] EST. GFR,Non 57 ml/min/1.73sq.m [facility] GFR Information Average GFR for 70+ years old = 75. Normal [facility] Comment on above: Result Comment: Hospital Admissions Clerk aviva Kidney disease, GFR = <60. Kidney [...] higher Potassium [Moles/Vol] 4.4 mmol/L Normal 3.5-5.1 [facility] Sodium [Moles/Vol] 135 mmol/L Low 137-145 [facility] Urea nitrogen [Mass/Vol] 10 mg/dL Normal 7-20 [facility] C REACTIVE PROTEINon 024 CRP [Mass/Vol] 25.8 mg/L High 0-10 [facility] CBCon 01-30-2024 ABSOLUTE BAS 0.1 10*3/uL Normal 0.0-0.[address] [facility] ABSOLUTE EOS 0.2 10*3/uL Normal 0.0-0.[address] [facility] ABSOLUTE NEUTROPHIL COUNT 2.9 10*3/uL Normal 1.4-6.5 [...] MCHC (RBC) [Mass/Vol] 34.4 g/dL Normal 27.0-37.0 [facility] MCV (RBC) [Entitic vol] 95.6 fL Normal 80.0-100.0 [facility] Platelet mean volume (Bld) [Entitic vol] 6.3 fL Low 7.4-11.0 [facility] Platelets (Bld) [#/Vol] 466 10*3/uL High 130-400 [facility] RBC (Bld) [#/Vol] 3.12 10*6/uL Low 4.0-5.4 [facility] WBC (Bld) [#/Vol] 5.3 10*3/uL Normal 3.6-11.0 [facility] Laboratory - Chemistry and C hemistry - challengeon 01-30-2024 Anion gap [Moles/Vol] 3 mmol/L Low [facility] Calcium [Mass/Vol] 8.6 mg/dL [facility] Chloride [Moles/Vol] 101 mmol/L [facility] CO2 [Moles/Vol] 31 mmol/L High [facility] Creatinine [Mass/Vol] 1.00 mg/dL [facility] CRP [Mass/Vol] 25.8 mg/L High 0 - 10 MG/L [facility] GFR/1.73 sq M.predicted among blacks MDRD (S/P/Bld) [Vol rate/Area] 68 mL/min/{1.73_m2} ml/min/1.73sq .m [facility] GFR/1.73 sq M.predicted among non-blacks MDRD (S/P/Bld) [Vol rate/Area] 57 mL/min/{1.73_m2} ml/min/1.73sq .m [facility] Glucose post fast [Mass/Vol] 93 mg/dL [facility] Potassium [Moles/Vol] 4.4 mmol/L [facility] Sodium [Moles/Vol] 135 mmol/L Low [facility] Urea nitrogen [Mass/Vol] 10 mg/dL [facility] Laboratory - Hematology and Cell countson 01-30-2024 Basophils/100 WBC (Bld) 1.2 % 0.0 - 2.0 % [facility] Differential cell count method Nom (Bld) AUTO DIFF % [facility] Eosinophils (Bld) [#/Vol] 0.2 10*3/uL 0.0 - 0.7 10*3/uL [facility] Eosinophils/100 WBC (Bld) 3.0 % 0.0 - 11.0 % [facility] Erythrocyte distribution width (RBC) [Ratio] 15.0 % High 11.5 - 14.5 % [facility] Hematocrit (Bld) [Volume fraction] 29.9 % Low 36.0 - 48.0 % [facility] Hemoglobin (Bld) [Mass/Vol] 10.3 g/dL Low [facility] Lymphocytes (Bld) [#/Vol] 1.4 10*3/uL 1.2 - 3.4 10*3/uL [facility] Lymphocytes/100 WBC (Bld) 26.1 % 20.0 - 55.0 % [facility] MCH (RBC) [Entitic mass] 32.9 pg 26.0 - 35.0 PG [facility] MCHC (RBC) [Mass/Vol] 34.4 g/dL [facility] MCV (RBC) [Entitic vol] 95.6 fL [facility] Monocytes (Bld) [#/Vol] 0.8 10*3/uL High 0.0 - 0.7 10*3/uL [facility] Monocytes/100 WBC (Bld) 15.2 % High 0.0 - 10.0 % [facility] Neutrophils (Bld) [#/Vol] 2.9 10*3/uL 1.4 - 6.5 10*3/uL [facility] Neutrophils/100 WBC (Bld) 54.5 % 37.0 - 75.0 % [facility] Platelet mean volume (Bld) [Entitic vol] 6.3 fL Low [facility] Platelets (Bld) [#/Vol] 466 10*3/uL High 130 - 400 10*3/uL [facility] RBC (Bld) [#/Vol] 3.12 10*6/uL Low 4.0 - 5.4 10*6/uL [facility] WBC (Bld) [#/Vol] 5.3 10*3/uL 3.6 - 11.0 10*3/uL [facility] No Panel Informationon 01-29 GFR COMMENT Average GFR for 70+ years old = 75. [facility] Interpretation and review of laboratory results Abnormal [facility] ABSOLUTE BASOPHIL COUNT 0.1 10*3/uL 0.0 - 0.2 10*3/uL [facility] Interpretation and review of laboratory results Abnormal [facility] BMP FASTINGon 01-29-2024 Anion gap [Moles/Vol] 3 mmol/L Low 8-16 [facility] Calcium [Mass/Vol] 8.3 mg/dL Low 8.4-10.2 [facility] Chloride [Moles/Vol] 101 mmol/L Normal 98-107 [facility] Comment on above: Result Comment: Shonda matthews note: Triglyceride levels of 600mg/dL or higher may positively bias chloride results by approximately 2.1 mmol CO2 [Moles/Vol] 30 mmol/L Normal 22-30 [facility] Creatinine [Mass/Vol] 0.80 mg/dL Normal 0.7-1.2 [facility] EST. GFR, 89 ml/min/1.73sq.m [facility] EST. GFR,Non 73 ml/min/1.73sq.m [facility] GFR Information Average GFR for 70+ years old = 75. Normal [facility] Comment on above: Result Comment: Hospital Admissions Clerk aviva Kidney disease, GFR = <60. Kidney [...] higher Potassium [Moles/Vol] 4.2 mmol/L Normal 3.5-5.1 [facility] Sodium [Moles/Vol] 134 mmol/L Low 137-145 [facility] Urea nitrogen [Mass/Vol] 9 mg/dL Normal 7-20 [facility] C REACTIVE PROTEINon 024 CRP [Mass/Vol] 28.9 mg/L High 0-10 [facility] CBCon 01-29-2024 ABSOLUTE BAS 0.1 10*3/uL Normal 0.0-0.[address] [facility] ABSOLUTE EOS 0.2 10*3/uL Normal 0.0-0.[address] [facility] ABSOLUTE NEUTROPHIL COUNT 2.6 10*3/uL Normal 1.4-6.5 [...] MCHC (RBC) [Mass/Vol] 34.3 g/dL Normal 27.0-37.0 [facility] MCV (RBC) [Entitic vol] 95.2 fL Normal 80.0-100.0 [facility] Platelet mean volume (Bld) [Entitic vol] 6.4 fL Low 7.4-11.0 [facility] Platelets (Bld) [#/Vol] 438 10*3/uL High 130-400 [facility] RBC (Bld) [#/Vol] 3.07 10*6/uL Low 4.0-5.4 [facility] WBC (Bld) [#/Vol] 4.7 10*3/uL Normal 3.6-11.0 [facility] Laboratory - Chemistry and C hemistry - challengeon 01-29-2024 Anion gap [Moles/Vol] 3 mmol/L Low [facility] Calcium [Mass/Vol] 8.3 mg/dL Low [facility] Chloride [Moles/Vol] 101 mmol/L [facility] CO2 [Moles/Vol] 30 mmol/L [facility] Creatinine [Mass/Vol] 0.80 mg/dL [facility] CRP [Mass/Vol] 28.9 mg/L High 0 - 10 MG/L [facility] GFR/1.73 sq M.predicted among blacks MDRD (S/P/Bld) [Vol rate/Area] 89 mL/min/{1.73_m2} ml/min/1.73sq .m [facility] GFR/1.73 sq M.predicted among non-blacks MDRD (S/P/Bld) [Vol rate/Area] 73 mL/min/{1.73_m2} ml/min/1.73sq .m [facility] Glucose post fast [Mass/Vol] 94 mg/dL [facility] Potassium [Moles/Vol] 4.2 mmol/L [facility] Sodium [Moles/Vol] 134 mmol/L Low [facility] Urea nitrogen [Mass/Vol] 9 mg/dL [facility] Laboratory - Hematology and Cell countson 01-29-2024 Basophils/100 WBC (Bld) 1.1 % 0.0 - 2.0 % [facility] Differential cell count method Nom (Bld) AUTO DIFF % [facility] Eosinophils (Bld) [#/Vol] 0.2 10*3/uL 0.0 - 0.7 10*3/uL [facility] Eosinophils/100 WBC (Bld) 4.1 % 0.0 - 11.0 % [facility] Erythrocyte distribution width (RBC) [Ratio] 14.7 % High 11.5 - 14.5 % [facility] Hematocrit (Bld) [Volume fraction] 29.3 % Low 36.0 - 48.0 % [facility] Hemoglobin (Bld) [Mass/Vol] 10.0 g/dL Low [facility] Lymphocytes (Bld) [#/Vol] 1.3 10*3/uL 1.2 - 3.4 10*3/uL [facility] Lymphocytes/100 WBC (Bld) 26.6 % 20.0 - 55.0 % [facility] MCH (RBC) [Entitic mass] 32.7 pg 26.0 - 35.0 PG [facility] MCHC (RBC) [Mass/Vol] 34.3 g/dL [facility] MCV (RBC) [Entitic vol] 95.2 fL [facility] Monocytes (Bld) [#/Vol] 0.7 10*3/uL 0.0 - 0.7 10*3/uL [facility] Monocytes/100 WBC (Bld) 13.9 % High 0.0 - 10.0 % [facility] Neutrophils (Bld) [#/Vol] 2.6 10*3/uL 1.4 - 6.5 10*3/uL [facility] Neutrophils/100 WBC (Bld) 54.3 % 37.0 - 75.0 % [facility] Platelet mean volume (Bld) [Entitic vol] 6.4 fL Low [facility] Platelets (Bld) [#/Vol] 438 10*3/uL High 130 - 400 10*3/uL [facility] RBC (Bld) [#/Vol] 3.07 10*6/uL Low 4.0 - 5.4 10*6/uL [facility] WBC (Bld) [#/Vol] 4.7 10*3/uL 3.6 - 11.0 10*3/uL [facility] No Panel Informationon 01-28 GFR COMMENT Average GFR for 70+ years old = 75. [facility] Interpretation and review of laboratory results Abnormal [facility] ABSOLUTE BASOPHIL COUNT 0.1 10*3/uL 0.0 - 0.2 10*3/uL [facility] Interpretation and review of laboratory results Abnormal [facility] BMP FASTINGon 01-28-2024 Anion gap [Moles/Vol] 3 mmol/L Low 8-16 [facility] Calcium [Mass/Vol] 8.8 mg/dL Normal 8.4-10.2 [facility] Chloride [Moles/Vol] 100 mmol/L Normal 98-107 [facility] Comment on above: Result Comment: Shonda matthews note: Triglyceride levels of 600mg/dL or higher may positively bias chloride results by approximately 2.1 mmol CO2 [Moles/Vol] 33 mmol/L High 22-30 [facility] Creatinine [Mass/Vol] 0.80 mg/dL Normal 0.7-1.2 [facility] EST. GFR, 89 ml/min/1.73sq.m Normal [facility] EST. GFR,Non 73 ml/min/1.73sq.m Normal [facility] GFR Information Average GFR for 70+ years old = 75. Normal [facility] Comment on above: Result Comment: Hospital Admissions Clerk aviva Kidney disease, GFR = <60. Kidney [...] higher Potassium [Moles/Vol] 4.4 mmol/L Normal 3.5-5.1 [facility] Sodium [Moles/Vol] 136 mmol/L Low 137-145 [facility] Urea nitrogen [Mass/Vol] 11 mg/dL Normal 7-20 [facility] C REACTIVE PROTEINon 024 CRP [Mass/Vol] 30.5 mg/L High 0-10 [facility] CBCon 01-28-2024 ABSOLUTE BAS 0.1 10*3/uL Normal 0.0-0.[address] [facility] ABSOLUTE EOS 0.2 10*3/uL Normal 0.0-0.[address] [facility] ABSOLUTE NEUTROPHIL COUNT 3.0 10*3/uL Normal 1.4-6.5 [...] MCHC (RBC) [Mass/Vol] 34.0 g/dL Normal 27.0-37.0 [facility] MCV (RBC) [Entitic vol] 95.0 fL Normal 80.0-100.0 [facility] Platelet mean volume (Bld) [Entitic vol] 6.5 fL Low 7.4-11.0 [facility] Platelets (Bld) [#/Vol] 470 10*3/uL High 130-400 [facility] RBC (Bld) [#/Vol] 3.30 10*6/uL Low 4.0-5.4 [facility] WBC (Bld) [#/Vol] 5.1 10*3/uL Normal 3.6-11.0 [facility] Laboratory - Chemistry and C hemistry - challengeon 01-28-2024 Anion gap [Moles/Vol] 3 mmol/L Low [facility] Calcium [Mass/Vol] 8.8 mg/dL [facility] Chloride [Moles/Vol] 100 mmol/L [facility] CO2 [Moles/Vol] 33 mmol/L High [facility] Creatinine [Mass/Vol] 0.80 mg/dL [facility] CRP [Mass/Vol] 30.5 mg/L High 0 - 10 MG/L [facility] GFR/1.73 sq M.predicted among blacks MDRD (S/P/Bld) [Vol rate/Area] 89 mL/min/{1.73_m2} ml/min/1.73sq .m [facility] GFR/1.73 sq M.predicted among non-blacks MDRD (S/P/Bld) [Vol rate/Area] 73 mL/min/{1.73_m2} ml/min/1.73sq .m [facility] Glucose post fast [Mass/Vol] 86 mg/dL [facility] Potassium [Moles/Vol] 4.4 mmol/L [facility] Sodium [Moles/Vol] 136 mmol/L Low [facility] Urea nitrogen [Mass/Vol] 11 mg/dL [facility] Laboratory - Hematology and Cell countson 01-28-2024 Basophils/100 WBC (Bld) 1.1 % 0.0 - 2.0 % [facility] Differential cell count method Nom (Bld) AUTO DIFF % [facility] Eosinophils (Bld) [#/Vol] 0.2 10*3/uL 0.0 - 0.7 10*3/uL [facility] Eosinophils/100 WBC (Bld) 3.2 % 0.0 - 11.0 % [facility] Erythrocyte distribution width (RBC) [Ratio] 14.6 % High 11.5 - 14.5 % [facility] Hematocrit (Bld) [Volume fraction] 31.3 % Low 36.0 - 48.0 % [facility] Hemoglobin (Bld) [Mass/Vol] 10.6 g/dL Low [facility] Lymphocytes (Bld) [#/Vol] 1.3 10*3/uL 1.2 - 3.4 10*3/uL [facility] Lymphocytes/100 WBC (Bld) 25.7 % 20.0 - 55.0 % [facility] MCH (RBC) [Entitic mass] 32.3 pg 26.0 - 35.0 PG [facility] MCHC (RBC) [Mass/Vol] 34.0 g/dL [facility] MCV (RBC) [Entitic vol] 95.0 fL [facility] Monocytes (Bld) [#/Vol] 0.6 10*3/uL 0.0 - 0.7 10*3/uL [facility] Monocytes/100 WBC (Bld) 12.0 % High 0.0 - 10.0 % [facility] Neutrophils (Bld) [#/Vol] 3.0 10*3/uL 1.4 - 6.5 10*3/uL [facility] Neutrophils/100 WBC (Bld) 58.0 % 37.0 - 75.0 % [facility] Platelet mean volume (Bld) [Entitic vol] 6.5 fL Low [facility] Platelets (Bld) [#/Vol] 470 10*3/uL High 130 - 400 10*3/uL [facility] RBC (Bld) [#/Vol] 3.30 10*6/uL Low 4.0 - 5.4 10*6/uL [facility] WBC (Bld) [#/Vol] 5.1 10*3/uL 3.6 - 11.0 10*3/uL [facility] No Panel Informationon 01-27 GFR COMMENT Average GFR for 70+ years old = 75. [facility] Interpretation and review of laboratory results Abnormal [facility] ABSOLUTE BASOPHIL COUNT 0.1 10*3/uL 0.0 - 0.2 10*3/uL [facility] Interpretation and review of laboratory results Abnormal [facility] BMP FASTINGon 01-27-2024 Anion gap [Moles/Vol] 3 mmol/L Low 8-16 [facility] Calcium [Mass/Vol] 8.6 mg/dL Normal 8.4-10.2 [facility] Chloride [Moles/Vol] 102 mmol/L Normal 98-107 [facility] Comment on above: Result Comment: Shonda matthews note: Triglyceride levels of 600mg/dL or higher may positively bias chloride results by approximately 2.1 mmol CO2 [Moles/Vol] 30 mmol/L Normal 22-30 [facility] Creatinine [Mass/Vol] 0.70 mg/dL Normal 0.7-1.2 [facility] EST. GFR, 103 ml/min/1.73sq.m [facility] EST. GFR,Non 85 ml/min/1.73sq.m [facility] GFR Information Average GFR for 70+ years old = 75. Normal [facility] Comment on above: Result Comment: Hospital Admissions Clerk aviva Kidney disease, GFR = <60. Kidney [...] higher Potassium [Moles/Vol] 4.0 mmol/L Normal 3.5-5.1 [facility] Sodium [Moles/Vol] 135 mmol/L Low 137-145 [facility] Urea nitrogen [Mass/Vol] 11 mg/dL Normal 7-20 [facility] C REACTIVE PROTEINon 024 CRP [Mass/Vol] 28.4 mg/L High 0-10 [facility] CBCon 01-27-2024 ABSOLUTE BAS 0.0 10*3/uL Normal 0.0-0.[address] [facility] ABSOLUTE EOS 0.2 10*3/uL Normal 0.0-0.[address] [facility] ABSOLUTE NEUTROPHIL COUNT 3.3 10*3/uL Normal 1.4-6.5 [...] MCHC (RBC) [Mass/Vol] 33.4 g/dL Normal 27.0-37.0 [facility] MCV (RBC) [Entitic vol] 96.3 fL Normal 80.0-100.0 [facility] Platelet mean volume (Bld) [Entitic vol] 6.6 fL Low 7.4-11.0 [facility] Platelets (Bld) [#/Vol] 438 10*3/uL High 130-400 [facility] RBC (Bld) [#/Vol] 3.19 10*6/uL Low 4.0-5.4 [facility] WBC (Bld) [#/Vol] 5.4 10*3/uL Normal 3.6-11.0 [facility] Laboratory - Chemistry and C hemistry - challengeon 01-27-2024 Anion gap [Moles/Vol] 3 mmol/L Low [facility] Calcium [Mass/Vol] 8.6 mg/dL [facility] Chloride [Moles/Vol] 102 mmol/L [facility] CO2 [Moles/Vol] 30 mmol/L [facility] Creatinine [Mass/Vol] 0.70 mg/dL [facility] CRP [Mass/Vol] 28.4 mg/L High 0 - 10 MG/L [facility] GFR/1.73 sq M.predicted among blacks MDRD (S/P/Bld) [Vol rate/Area] 103 mL/min/{1.73_m2} ml/min/1.73sq .m [facility] GFR/1.73 sq M.predicted among non-blacks MDRD (S/P/Bld) [Vol rate/Area] 85 mL/min/{1.73_m2} ml/min/1.73sq .m [facility] Glucose post fast [Mass/Vol] 98 mg/dL [facility] Potassium [Moles/Vol] 4.0 mmol/L [facility] Sodium [Moles/Vol] 135 mmol/L Low [facility] Urea nitrogen [Mass/Vol] 11 mg/dL [facility] Laboratory - Hematology and Cell countson 01-27-2024 Basophils/100 WBC (Bld) 0.9 % 0.0 - 2.0 % [facility] Differential cell count method Nom (Bld) AUTO DIFF % [facility] Eosinophils (Bld) [#/Vol] 0.2 10*3/uL 0.0 - 0.7 10*3/uL [facility] Eosinophils/100 WBC (Bld) 3.3 % 0.0 - 11.0 % [facility] Erythrocyte distribution width (RBC) [Ratio] 14.9 % High 11.5 - 14.5 % [facility] Hematocrit (Bld) [Volume fraction] 30.7 % Low 36.0 - 48.0 % [facility] Hemoglobin (Bld) [Mass/Vol] 10.3 g/dL Low [facility] Lymphocytes (Bld) [#/Vol] 1.3 10*3/uL 1.2 - 3.4 10*3/uL [facility] Lymphocytes/100 WBC (Bld) 23.9 % 20.0 - 55.0 % [facility] MCH (RBC) [Entitic mass] 32.2 pg 26.0 - 35.0 PG [facility] MCHC (RBC) [Mass/Vol] 33.4 g/dL [facility] MCV (RBC) [Entitic vol] 96.3 fL [facility] Monocytes (Bld) [#/Vol] 0.6 10*3/uL 0.0 - 0.7 10*3/uL [facility] Monocytes/100 WBC (Bld) 11.0 % High 0.0 - 10.0 % [facility] Neutrophils (Bld) [#/Vol] 3.3 10*3/uL 1.4 - 6.5 10*3/uL [facility] Neutrophils/100 WBC (Bld) 60.9 % 37.0 - 75.0 % [facility] Platelet mean volume (Bld) [Entitic vol] 6.6 fL Low [facility] Platelets (Bld) [#/Vol] 438 10*3/uL High 130 - 400 10*3/uL [facility] RBC (Bld) [#/Vol] 3.19 10*6/uL Low 4.0 - 5.4 10*6/uL [facility] WBC (Bld) [#/Vol] 5.4 10*3/uL 3.6 - 11.0 10*3/uL [facility] No Panel Informationon 01-26 GFR COMMENT Average GFR for 70+ years old = 75. [facility] Interpretation and review of laboratory results Abnormal [facility] ABSOLUTE BASOPHIL COUNT 0.0 10*3/uL 0.0 - 0.2 10*3/uL [facility] Interpretation and review of laboratory results Abnormal [facility] BMP FASTINGon 01-26-2024 Anion gap [Moles/Vol] 1 mmol/L Low 8-16 [facility] Calcium [Mass/Vol] 8.2 mg/dL Low 8.4-10.2 [facility] Chloride [Moles/Vol] 102 mmol/L Normal 98-107 [facility] Comment on above: Result Comment: Shonda matthews note: Triglyceride levels of 600mg/dL or higher may positively bias chloride results by approximately 2.1 mmol CO2 [Moles/Vol] 31 mmol/L High 22-30 [facility] Creatinine [Mass/Vol] 0.70 mg/dL Normal 0.7-1.2 [facility] EST. GFR, 103 ml/min/1.73sq.m Normal [facility] EST. GFR,Non 85 ml/min/1.73sq.m Normal [facility] GFR Information Average GFR for 70+ years old = 75. Normal [facility] Comment on above: Result Comment: Hospital Admissions Clerk aviva Kidney disease, GFR = <60. Kidney [...] higher Potassium [Moles/Vol] 3.9 mmol/L Normal 3.5-5.1 [facility] Sodium [Moles/Vol] 134 mmol/L Low 137-145 [facility] Urea nitrogen [Mass/Vol] 12 mg/dL Normal 7-20 [facility] C REACTIVE PROTEINon 024 CRP [Mass/Vol] 28.4 mg/L High 0-10 [facility] CBCon 01-26-2024 ABSOLUTE BAS 0.0 10*3/uL Normal 0.0-0.[address] [facility] ABSOLUTE EOS 0.2 10*3/uL Normal 0.0-0.[address] [facility] ABSOLUTE NEUTROPHIL COUNT 3.7 10*3/uL Normal 1.4-6.5 [...] MCHC (RBC) [Mass/Vol] 33.6 g/dL Normal 27.0-37.0 [facility] MCV (RBC) [Entitic vol] 95.3 fL Normal 80.0-100.0 [facility] Platelet mean volume (Bld) [Entitic vol] 6.7 fL Low 7.4-11.0 [facility] Platelets (Bld) [#/Vol] 440 10*3/uL High 130-400 [facility] RBC (Bld) [#/Vol] 3.05 10*6/uL Low 4.0-5.4 [facility] WBC (Bld) [#/Vol] 5.9 10*3/uL Normal 3.6-11.0 [facility] Laboratory - Chemistry and C hemistry - challengeon 01-26-2024 Anion gap [Moles/Vol] 1 mmol/L Low [facility] Calcium [Mass/Vol] 8.2 mg/dL Low [facility] Chloride [Moles/Vol] 102 mmol/L [facility] CO2 [Moles/Vol] 31 mmol/L High [facility] Creatinine [Mass/Vol] 0.70 mg/dL [facility] CRP [Mass/Vol] 28.4 mg/L High 0 - 10 MG/L [facility] GFR/1.73 sq M.predicted among blacks MDRD (S/P/Bld) [Vol rate/Area] 103 mL/min/{1.73_m2} ml/min/1.73sq .m [facility] GFR/1.73 sq M.predicted among non-blacks MDRD (S/P/Bld) [Vol rate/Area] 85 mL/min/{1.73_m2} ml/min/1.73sq .m [facility] Glucose post fast [Mass/Vol] 109 mg/dL High [facility] Potassium [Moles/Vol] 3.9 mmol/L [facility] Sodium [Moles/Vol] 134 mmol/L Low [facility] Urea nitrogen [Mass/Vol] 12 mg/dL [facility] Laboratory - Hematology and Cell countson 01-26-2024 Basophils/100 WBC (Bld) 0.9 % 0.0 - 2.0 % [facility] Differential cell count method Nom (Bld) AUTO DIFF % [facility] Eosinophils (Bld) [#/Vol] 0.2 10*3/uL 0.0 - 0.7 10*3/uL [facility] Eosinophils/100 WBC (Bld) 2.8 % 0.0 - 11.0 % [facility] Erythrocyte distribution width (RBC) [Ratio] 14.6 % High 11.5 - 14.5 % [facility] Hematocrit (Bld) [Volume fraction] 29.0 % Low 36.0 - 48.0 % [facility] Hemoglobin (Bld) [Mass/Vol] 9.8 g/dL Low [facility] Lymphocytes (Bld) [#/Vol] 1.2 10*3/uL 1.2 - 3.4 10*3/uL [facility] Lymphocytes/100 WBC (Bld) 21.0 % 20.0 - 55.0 % [facility] MCH (RBC) [Entitic mass] 32.0 pg 26.0 - 35.0 PG [facility] MCHC (RBC) [Mass/Vol] 33.6 g/dL [facility] MCV (RBC) [Entitic vol] 95.3 fL [facility] Monocytes (Bld) [#/Vol] 0.7 10*3/uL 0.0 - 0.7 10*3/uL [facility] Monocytes/100 WBC (Bld) 11.6 % High 0.0 - 10.0 % [facility] Neutrophils (Bld) [#/Vol] 3.7 10*3/uL 1.4 - 6.5 10*3/uL [facility] Neutrophils/100 WBC (Bld) 63.7 % 37.0 - 75.0 % [facility] Platelet mean volume (Bld) [Entitic vol] 6.7 fL Low [facility] Platelets (Bld) [#/Vol] 440 10*3/uL High 130 - 400 10*3/uL [facility] RBC (Bld) [#/Vol] 3.05 10*6/uL Low 4.0 - 5.4 10*6/uL [facility] WBC (Bld) [#/Vol] 5.9 10*3/uL 3.6 - 11.0 10*3/uL [facility] No Panel Informationon 01-25 GFR COMMENT Average GFR for 70+ years old = 75. [facility] Interpretation and review of laboratory results Abnormal [facility] ABSOLUTE BASOPHIL COUNT 0.0 10*3/uL 0.0 - 0.2 10*3/uL [facility] Interpretation and review of laboratory results Abnormal [facility] BMP FASTINGon 01-25-2024 Anion gap [Moles/Vol] 3 mmol/L Low 8-16 [facility] Calcium [Mass/Vol] 8.3 mg/dL Low 8.4-10.2 [facility] Chloride [Moles/Vol] 101 mmol/L Normal 98-107 [facility] Comment on above: Result Comment: Shonda matthews note: Triglyceride levels of 600mg/dL or higher may positively bias chloride results by approximately 2.1 mmol CO2 [Moles/Vol] 32 mmol/L High 22-30 [facility] Creatinine [Mass/Vol] 0.70 mg/dL Normal 0.7-1.2 [facility] EST. GFR, 103 ml/min/1.73sq.m Normal [facility] EST. GFR,Non 85 ml/min/1.73sq.m Normal [facility] GFR Information Average GFR for 70+ years old = 75. Normal [facility] Comment on above: Result Comment: Hospital Admissions Clerk aviva Kidney disease, GFR = <60. Kidney [...] higher Potassium [Moles/Vol] 3.8 mmol/L Normal 3.5-5.1 [facility] Sodium [Moles/Vol] 136 mmol/L Low 137-145 [facility] Urea nitrogen [Mass/Vol] 6 mg/dL Low 7-20 [facility] C REACTIVE PROTEINon 024 CRP [Mass/Vol] 33.6 mg/L High 0-10 [facility] CBCon 01-25-2024 ABSOLUTE BAS 0.0 10*3/uL Normal 0.0-0.[address] [facility] ABSOLUTE EOS 0.2 10*3/uL Normal 0.0-0.[address] [facility] ABSOLUTE NEUTROPHIL COUNT 3.7 10*3/uL Normal 1.4-6.5 [...] MCHC (RBC) [Mass/Vol] 34.3 g/dL Normal 27.0-37.0 [facility] MCV (RBC) [Entitic vol] 94.8 fL Normal 80.0-100.0 [facility] Platelet mean volume (Bld) [Entitic vol] 6.7 fL Low 7.4-11.0 [facility] Platelets (Bld) [#/Vol] 440 10*3/uL High 130-400 [facility] RBC (Bld) [#/Vol] 3.10 10*6/uL Low 4.0-5.4 [facility] WBC (Bld) [#/Vol] 5.7 10*3/uL Normal 3.6-11.0 [facility] Laboratory - Chemistry and C hemistry - challengeon 01-25-2024 Anion gap [Moles/Vol] 3 mmol/L Low [facility] Calcium [Mass/Vol] 8.3 mg/dL Low [facility] Chloride [Moles/Vol] 101 mmol/L [facility] CO2 [Moles/Vol] 32 mmol/L High [facility] Creatinine [Mass/Vol] 0.70 mg/dL [facility] CRP [Mass/Vol] 33.6 mg/L High 0 - 10 MG/L [facility] GFR/1.73 sq M.predicted among blacks MDRD (S/P/Bld) [Vol rate/Area] 103 mL/min/{1.73_m2} ml/min/1.73sq .m [facility] GFR/1.73 sq M.predicted among non-blacks MDRD (S/P/Bld) [Vol rate/Area] 85 mL/min/{1.73_m2} ml/min/1.73sq .m [facility] Glucose post fast [Mass/Vol] 92 mg/dL [facility] Potassium [Moles/Vol] 3.8 mmol/L [facility] Sodium [Moles/Vol] 136 mmol/L Low [facility] Urea nitrogen [Mass/Vol] 6 mg/dL Low [facility] Laboratory - Hematology and Cell countson 01-25-2024 Basophils/100 WBC (Bld) 0.7 % 0.0 - 2.0 % [facility] Differential cell count method Nom (Bld) AUTO DIFF % [facility] Eosinophils (Bld) [#/Vol] 0.2 10*3/uL 0.0 - 0.7 10*3/uL [facility] Eosinophils/100 WBC (Bld) 2.6 % 0.0 - 11.0 % [facility] Erythrocyte distribution width (RBC) [Ratio] 14.4 % 11.5 - 14.5 % [facility] Hematocrit (Bld) [Volume fraction] 29.4 % Low 36.0 - 48.0 % [facility] Hemoglobin (Bld) [Mass/Vol] 10.1 g/dL Low [facility] Lymphocytes (Bld) [#/Vol] 1.2 10*3/uL 1.2 - 3.4 10*3/uL [facility] Lymphocytes/100 WBC (Bld) 21.6 % 20.0 - 55.0 % [facility] MCH (RBC) [Entitic mass] 32.5 pg 26.0 - 35.0 PG [facility] MCHC (RBC) [Mass/Vol] 34.3 g/dL [facility] MCV (RBC) [Entitic vol] 94.8 fL [facility] Monocytes (Bld) [#/Vol] 0.6 10*3/uL 0.0 - 0.7 10*3/uL [facility] Monocytes/100 WBC (Bld) 11.3 % High 0.0 - 10.0 % [facility] Neutrophils (Bld) [#/Vol] 3.7 10*3/uL 1.4 - 6.5 10*3/uL [facility] Neutrophils/100 WBC (Bld) 63.8 % 37.0 - 75.0 % [facility] Platelet mean volume (Bld) [Entitic vol] 6.7 fL Low [facility] Platelets (Bld) [#/Vol] 440 10*3/uL High 130 - 400 10*3/uL [facility] RBC (Bld) [#/Vol] 3.10 10*6/uL Low 4.0 - 5.4 10*6/uL [facility] WBC (Bld) [#/Vol] 5.7 10*3/uL 3.6 - 11.0 10*3/uL [facility] No Panel Informationon 01-24 GFR COMMENT Average GFR for 70+ years old = 75. [facility] Interpretation and review of laboratory results Abnormal [facility] ABSOLUTE BASOPHIL COUNT 0.0 10*3/uL 0.0 - 0.2 10*3/uL [facility] Interpretation and review of laboratory results Abnormal [facility] BMP FASTINGon 01-24-2024 Anion gap [Moles/Vol] 2 mmol/L Low 8-16 [facility] Calcium [Mass/Vol] 8.5 mg/dL Normal 8.4-10.2 [facility] Chloride [Moles/Vol] 102 mmol/L Normal 98-107 [facility] Comment on above: Result Comment: Shonda matthews note: Triglyceride levels of 600mg/dL or higher may positively bias chloride results by approximately 2.1 mmol CO2 [Moles/Vol] 31 mmol/L High 22-30 [facility] Creatinine [Mass/Vol] 0.70 mg/dL Normal 0.7-1.2 [facility] EST. GFR, 103 ml/min/1.73sq.m Normal [facility] EST. GFR,Non 85 ml/min/1.73sq.m Normal [facility] GFR Information Average GFR for 70+ years old = 75. Normal [facility] Comment on above: Result Comment: Hospital Admissions Clerk aviva Kidney disease, GFR = <60. Kidney [...] higher Potassium [Moles/Vol] 3.5 mmol/L Normal 3.5-5.1 [facility] Sodium [Moles/Vol] 135 mmol/L Low 137-145 [facility] Urea nitrogen [Mass/Vol] 8 mg/dL Normal 7-20 [facility] C DIFFICILE DNAon 01-24-2024 C. DIFF 027 Negative Normal NEGATIVE [facility] Comment on above: Result Comment: Hype rvirulent C. difficile strain 027/NAP1/BI TESTING PERFORMED BY PCR Performed By: #### G IPAN ####[place] [address] TOXIGENIC C. DIFF Negative Normal NEGATIVE [facility] Comment on above: Performed By: #### G IPAN ####Testing performed at [address] [address] C REACTIVE PROTEINon 024 CRP [Mass/Vol] 46.5 mg/L High 0-10 [facility] CBCon 01-24-2024 ABSOLUTE BAS 0.0 10*3/uL Normal 0.0-0.[address] [facility] ABSOLUTE EOS 0.1 10*3/uL Normal 0.0-0.[address] [facility] ABSOLUTE NEUTROPHIL COUNT 4.2 10*3/uL Normal 1.4-6.5 [...] MCHC (RBC) [Mass/Vol] 34.4 g/dL Normal 27.0-37.0 [facility] MCV (RBC) [Entitic vol] 95.1 fL Normal 80.0-100.0 [facility] Platelet mean volume (Bld) [Entitic vol] 6.8 fL Low 7.4-11.0 [facility] Platelets (Bld) [#/Vol] 424 10*3/uL High 130-400 [facility] RBC (Bld) [#/Vol] 3.08 10*6/uL Low 4.0-5.4 [facility] WBC (Bld) [#/Vol] 6.2 10*3/uL Normal 3.6-11.0 [facility] GI PANELon 01-24-2024 ADENOVIRUS F 40/41 Not detected Normal NOT DETECTED [facility] Comment on above: Result Comment: Mandi baugh: Nucleic acid may persist in vivo independently of organism viability. Additionally, some organisms may be carried asymptomatically. Detection of target organisms does not imply that the corresponding organisms are infectious or are the causative agent of clinical symptoms. Results must be correlated with clinical history, epidemiological data and other clinical information available. Testing performed at [place] [id number] Performed By: #### G IPAN ####[place] [address] ASTROVIRUS Not detected Normal NOT DETECTED [facility] Comment on above: Performed By: #### G IPAN ####[place] [address] CAMPYLOBACTER Not detected Normal NOT DETECTED [facility] Comment on above: Performed By: #### G IPAN ####[place] [address] CRYPTOSPORIDIUM Not detected Normal NOT DETECTED [facility] Comment on above: Performed By: #### G IPAN ####[place] [address] CYCLOSPORA CAYETANENSIS Not detected Normal NOT DETECTED [facility] Comment on above: Performed By: #### G IPAN ####[place] [address] ENTAMOEBA HISTOLYTICA Not detected Normal NOT DETECTED [facility] Comment on above: Performed By: #### G IPAN ####[place] [address] ENTEROAGGREGATIVE E COLI Not detected Normal NOT DETECTED [facility] Comment on above: Performed By: #### G IPAN ####[place] [address] ENTEROTOXIGENIC E COLI Not detected Normal NOT DETECTED [facility] Comment on above: Performed By: #### G IPAN ####Testing performed at [address] [address] ENTROPATHOGENIC E COLI Not detected Normal NOT DETECTED [facility] Comment on above: Performed By: #### G IPAN ####Testing performed at [place] [id number] GIARDIA LAMBLIA Not detected Normal NOT DETECTED [facility] Comment on above: Performed By: #### G IPAN ####[place] [address] NOROVIRUS GI/GII Not detected Normal NOT DETECTED [facility] Comment on above: Performed By: #### G IPAN ####[place] [address] PLESIOMONAS SHIGELLOIDES Not detected Normal NOT DETECTED [facility] Comment on above: Performed By: #### G IPAN ####[place] [address] ROTAVIRUS A Not detected Normal NOT DETECTED [facility] Comment on above: Performed By: #### G IPAN ####[place] [address] SALMONELLA Not detected Normal NOT DETECTED [facility] Comment on above: Performed By: #### G IPAN ####[place] [address] SAPOVIRUS Not detected Normal NOT DETECTED [facility] Comment on above: Performed By: #### G IPAN ####Testing performed at [place] [id number] SHIGA-LIKE TOXIN-PRODUCING E COLI Not detected Normal NOT DETECTED [facility] Comment on above: Performed By: #### G IPAN ####Testing performed at [place] [id number] SHIGELLA/ENTEROINVASI VE E COLI Not detected Normal NOT DETECTED [facility] Comment on above: Performed By: #### G IPAN ####[place] [address] VIBRIO Not detected Normal NOT DETECTED [facility] Comment on above: Performed By: #### G IPAN ####[place] [address] VIBRIO CHOLERAE Not detected Normal NOT DETECTED [facility] Comment on above: Performed By: #### G IPAN ####[place] [address] YESINIA ENTEROCOLITICA Not detected Normal NOT DETECTED [facility] Comment on above: Performed By: #### G IPAN ####[place] [address] Laboratory - Chemistry and C hemistry - challengeon 01-24-2024 Anion gap [Moles/Vol] 2 mmol/L Low [facility] Calcium [Mass/Vol] 8.5 mg/dL [facility] Chloride [Moles/Vol] 102 mmol/L [facility] CO2 [Moles/Vol] 31 mmol/L [facility] Creatinine [Mass/Vol] 0.70 mg/dL [facility] CRP [Mass/Vol] 46.5 mg/L High 0 - 10 MG/L [facility] GFR/1.73 sq M.predicted among blacks MDRD (S/P/Bld) [Vol rate/Area] 103 mL/min/{1.73_m2} ml/min/1.73sq .m [facility] GFR/1.73 sq M.predicted among non-blacks MDRD (S/P/Bld) [Vol rate/Area] 85 mL/min/{1.73_m2} ml/min/1.73sq .m [facility] Glucose post fast [Mass/Vol] 104 mg/dL [facility] Potassium [Moles/Vol] 3.5 mmol/L [facility] Sodium [Moles/Vol] 135 mmol/L Low [facility] Urea nitrogen [Mass/Vol] 8 mg/dL [facility] Laboratory - Hematology and Cell countson 01-24-2024 Basophils/100 WBC (Bld) 0.7 % 0.0 - 2.0 % [facility] Differential cell count method Nom (Bld) AUTO DIFF % [facility] Eosinophils (Bld) [#/Vol] 0.1 10*3/uL 0.0 - 0.7 10*3/uL [facility] Eosinophils/100 WBC (Bld) 2.2 % 0.0 - 11.0 % [facility] Erythrocyte distribution width (RBC) [Ratio] 14.5 % 11.5 - 14.5 % [facility] Hematocrit (Bld) [Volume fraction] 29.3 % Low 36.0 - 48.0 % [facility] Hemoglobin (Bld) [Mass/Vol] 10.1 g/dL Low [facility] Lymphocytes (Bld) [#/Vol] 1.2 10*3/uL 1.2 - 3.4 10*3/uL [facility] Lymphocytes/100 WBC (Bld) 19.3 % Low 20.0 - 55.0 % [facility] MCH (RBC) [Entitic mass] 32.7 pg 26.0 - 35.0 PG [facility] MCHC (RBC) [Mass/Vol] 34.4 g/dL [facility] MCV (RBC) [Entitic vol] 95.1 fL [facility] Monocytes (Bld) [#/Vol] 0.7 10*3/uL 0.0 - 0.7 10*3/uL [facility] Monocytes/100 WBC (Bld) 10.6 % High 0.0 - 10.0 % [facility] Neutrophils (Bld) [#/Vol] 4.2 10*3/uL 1.4 - 6.5 10*3/uL [facility] Neutrophils/100 WBC (Bld) 67.2 % 37.0 - 75.0 % [facility] Platelet mean volume (Bld) [Entitic vol] 6.8 fL Low [facility] Platelets (Bld) [#/Vol] 424 10*3/uL High 130 - 400 10*3/uL [facility] RBC (Bld) [#/Vol] 3.08 10*6/uL Low 4.0 - 5.4 10*6/uL [facility] WBC (Bld) [#/Vol] 6.2 10*3/uL 3.6 - 11.0 10*3/uL [facility] Laboratory - Microbiology an d Antimicrobial susceptibilityon 01-24-2024 Adenovirus 40+41 DNA SMILEY+non-probe Ql (Stl) Not detected NOT DETECTED [facility] Astrovirus subtypes 1-8 RNA SMILEY+non-probe Ql (Stl) Not detected NOT DETECTED [facility] C. cayetanensis DNA SMILEY+probe Ql (Unsp spec) Not detected NOT DETECTED [facility] C. coli+jejuni+upsaliens is DNA SMILEY+non-probe Ql (Stl) Not detected NOT DETECTED [facility] Cryptosporidium sp DNA SMILEY+probe Ql (Unsp spec) Not detected NOT DETECTED [facility] E. coli enteroaggregative Kandis plasmid aggR+aatA genes SMILEY+non-probe Ql (Stl) Not detected NOT DETECTED [facility] E. histolytica DNA SMILEY+probe Ql (Unsp spec) Not detected NOT DETECTED [facility] G. lamblia DNA SMILEY+non-probe Ql (Stl) Not detected NOT DETECTED [facility] P. shigelloides DNA SMILEY+non-probe Ql (Stl) Not detected NOT DETECTED [facility] Rotavirus A RNA SMILEY+non-probe Ql (Stl) Not detected NOT DETECTED [facility] S. enterica+bongori DNA SMILEY+non-probe Ql (Stl) Not detected NOT DETECTED [facility] V. cholerae DNA SMILEY+non-probe Ql (Stl) Not detected NOT DETECTED [facility] V. cholerae+parahaemolyt icus+vulnificus DNA SMILEY+non-probe Ql (Stl) Not detected NOT DETECTED [facility] Y. enterocolitica DNA SMILEY+non-probe Ql (Stl) Not detected NOT DETECTED [facility] No Panel Informationon 01-23 E COLI (EIEC) Not detected NOT DETECTED [facility] E COLI (EPEC) Not detected NOT DETECTED [facility] E COLI (ETEC) Not detected NOT DETECTED [facility] NOROVIRUS RNA Not detected NOT DETECTED [facility] SAPOVIRUS Not detected NOT DETECTED [facility] SHIGA TOXIN E. COLI Not detected NOT DETECTED A [facility] C. Diff 027 Negative NEGATIVE [facility] C.DIFFICILE TOXIN,PCR Negative NEGATIVE [facility] GFR COMMENT Average GFR for 70+ years old = 75. [facility] Interpretation and review of laboratory results Abnormal [facility] ABSOLUTE BASOPHIL COUNT 0.0 10*3/uL 0.0 - 0.2 10*3/uL [facility] Interpretation and review of laboratory results Abnormal [facility] BMP FASTINGon 01-23-2024 Anion gap [Moles/Vol] 1 mmol/L Low 8-16 [facility] Calcium [Mass/Vol] 8.5 mg/dL Normal 8.4-10.2 [facility] Chloride [Moles/Vol] 101 mmol/L Normal 98-107 [facility] Comment on above: Result Comment: Shonda matthews note: Triglyceride levels of 600mg/dL or higher may positively bias chloride results by approximately 2.1 mmol CO2 [Moles/Vol] 33 mmol/L High 22-30 [facility] Creatinine [Mass/Vol] 0.60 mg/dL Low 0.7-1.2 [facility] EST. GFR, 123 ml/min/1.73sq.m [facility] EST. GFR,Non 102 ml/min/1.73sq.m [facility] GFR Information Average GFR for 70+ years old = 75. Normal [facility] Comment on above: Result Comment: Hospital Admissions Clerk aviva Kidney disease, GFR = <60. Kidney [...] higher Potassium [Moles/Vol] 3.7 mmol/L Normal 3.5-5.1 [facility] Sodium [Moles/Vol] 135 mmol/L Low 137-145 [facility] Urea nitrogen [Mass/Vol] 8 mg/dL Normal 7-20 [facility] C REACTIVE PROTEINon 024 CRP [Mass/Vol] 42.0 mg/L High 0-10 [facility] CBCon 01-23-2024 ABSOLUTE BAS 0.0 10*3/uL Normal 0.0-0.[address] [facility] ABSOLUTE EOS 0.1 10*3/uL Normal 0.0-0.[address] [facility] ABSOLUTE NEUTROPHIL COUNT 4.0 10*3/uL Normal 1.4-6.5 [...] MCHC (RBC) [Mass/Vol] 34.3 g/dL Normal 27.0-37.0 [facility] MCV (RBC) [Entitic vol] 94.0 fL Normal 80.0-100.0 [facility] Platelet mean volume (Bld) [Entitic vol] 6.7 fL Low 7.4-11.0 [facility] Platelets (Bld) [#/Vol] 425 10*3/uL High 130-400 [facility] RBC (Bld) [#/Vol] 3.10 10*6/uL Low 4.0-5.4 [facility] WBC (Bld) [#/Vol] 6.0 10*3/uL Normal 3.6-11.0 [facility] LIPASE,SERUMon 01-23-2024 LIPASE,SERUM 32 U/L Normal 23-300 [facility] LIVER PANELon 01-23-2024 Albumin [Mass/Vol] 2.6 g/dL Low 3.5-5.0 [facility] ALP [Catalytic activity/Vol] 99 U/L Normal 38-126 [facility] ALT [Catalytic activity/Vol] 10 U/L Normal <35 [facility] AST [Catalytic activity/Vol] 25 U/L Normal 14-36 [facility] Bilirubin [Mass/Vol] 0.3 mg/dL Normal 0.2-1.3 [facility] Bilirubin.indirect [Mass/Vol] 0.3 mg/dL Normal 0-0.4 [facility] Protein [Mass/Vol] 5.6 g/dL Low 6.3-8.2 [facility] Laboratory - Chemistry and C hemistry - challengeon 01-23-2024 Albumin [Mass/Vol] 2.6 g/dL Low [facility] ALP [Catalytic activity/Vol] 99 U/L [facility] ALT [Catalytic activity/Vol] 10 U/L NINF [facility] Anion gap [Moles/Vol] 1 mmol/L Low [facility] AST [Catalytic activity/Vol] 25 U/L [facility] Bilirubin [Mass/Vol] 0.3 mg/dL [facility] Bilirubin.direct [Mass/Vol] 0.3 mg/dL [facility] Calcium [Mass/Vol] 8.5 mg/dL [facility] Chloride [Moles/Vol] 101 mmol/L [facility] CO2 [Moles/Vol] 33 mmol/L High [facility] Creatinine [Mass/Vol] 0.60 mg/dL Low [facility] CRP [Mass/Vol] 42.0 mg/L High 0 - 10 MG/L [facility] GFR/1.73 sq M.predicted among blacks MDRD (S/P/Bld) [Vol rate/Area] 123 mL/min/{1.73_m2} ml/min/1.73sq .m [facility] GFR/1.73 sq M.predicted among non-blacks MDRD (S/P/Bld) [Vol rate/Area] 102 mL/min/{1.73_m2} ml/min/1.73sq .m [facility] Glucose post fast [Mass/Vol] 96 mg/dL [facility] Lipase [Catalytic activity/Vol] 32 U/L 23 - 300 U/L [facility] Potassium [Moles/Vol] 3.7 mmol/L [facility] Protein [Mass/Vol] 5.6 g/dL Low [facility] Sodium [Moles/Vol] 135 mmol/L Low [facility] Urea nitrogen [Mass/Vol] 8 mg/dL [facility] Laboratory - Hematology and Cell countson 01-23-2024 Basophils/100 WBC (Bld) 0.8 % 0.0 - 2.0 % [facility] Differential cell count method Nom (Bld) AUTO DIFF % [facility] Eosinophils (Bld) [#/Vol] 0.1 10*3/uL 0.0 - 0.7 10*3/uL [facility] Eosinophils/100 WBC (Bld) 2.4 % 0.0 - 11.0 % [facility] Erythrocyte distribution width (RBC) [Ratio] 13.9 % 11.5 - 14.5 % [facility] Hematocrit (Bld) [Volume fraction] 29.1 % Low 36.0 - 48.0 % [facility] Hemoglobin (Bld) [Mass/Vol] 10.0 g/dL Low [facility] Lymphocytes (Bld) [#/Vol] 1.2 10*3/uL 1.2 - 3.4 10*3/uL [facility] Lymphocytes/100 WBC (Bld) 19.6 % Low 20.0 - 55.0 % [facility] MCH (RBC) [Entitic mass] 32.2 pg 26.0 - 35.0 PG [facility] MCHC (RBC) [Mass/Vol] 34.3 g/dL [facility] MCV (RBC) [Entitic vol] 94.0 fL [facility] Monocytes (Bld) [#/Vol] 0.6 10*3/uL 0.0 - 0.7 10*3/uL [facility] Monocytes/100 WBC (Bld) 9.8 % 0.0 - 10.0 % [facility] Neutrophils (Bld) [#/Vol] 4.0 10*3/uL 1.4 - 6.5 10*3/uL [facility] Neutrophils/100 WBC (Bld) 67.4 % 37.0 - 75.0 % [facility] Platelet mean volume (Bld) [Entitic vol] 6.7 fL Low [facility] Platelets (Bld) [#/Vol] 425 10*3/uL High 130 - 400 10*3/uL [facility] RBC (Bld) [#/Vol] 3.10 10*6/uL Low 4.0 - 5.4 10*6/uL [facility] WBC (Bld) [#/Vol] 6.0 10*3/uL 3.6 - 11.0 10*3/uL [facility] Laboratory - Microbiology an d Antimicrobial susceptibilityon 01-23-2024 Bacteria identified Cx Nom (Unsp spec) NO PATHOGENS ISOLATED [facility] Laboratory - Miscellaneous t estson 01-23-2024 Service comment (Unsp spec) [Interp] 01/23/2024 [facility] Laboratory - Urinalysison Leukocyte esterase+Nitrite Test strip Ql (U) Positive [facility] No Panel Informationon 01-22 SPECIMEN DESCRIPTION URINE - OTHER A [facility] GFR COMMENT Average GFR for 70+ years old = 75. [facility] Interpretation and review of laboratory results Abnormal [facility] ABSOLUTE BASOPHIL COUNT 0.0 10*3/uL 0.0 - 0.2 10*3/uL [facility] Interpretation and review of laboratory results Abnormal [facility] BMP FASTINGon 01-22-2024 Anion gap [Moles/Vol] 3 mmol/L Low 8-16 [facility] Comment on above: Performed By: #### F EPRO ####Testing performed at [address] [address] Calcium [Mass/Vol] 8.8 mg/dL Normal 8.4-10.2 [facility] Comment on above: Performed By: #### F EPRO ####Testing performed at [address] [address] Chloride [Moles/Vol] 101 mmol/L Normal 98-107 [facility] Comment on above: Result Comment: Shonda matthews note: Triglyceride levels of 600mg/dL or higher may positively bias chloride results by approximately 2.1 mmol Performed By: #### F EPRO ####Testing performed at [address] [address] CO2 [Moles/Vol] 33 mmol/L High 22-30 [facility] Comment on above: Performed By: #### F EPRO ####Testing performed at [address] [address] Creatinine [Mass/Vol] 0.60 mg/dL Low 0.7-1.2 [facility] Comment on above: Performed By: #### F EPRO ####Testing performed at [address] [place] [address] EST. GFR, 123 ml/min/1.73sq.m [facility] Comment on above: Performed By: #### F EPRO ####Testing performed at [address] [place] [address] EST. GFR,Non 102 ml/min/1.73sq.m [facility] Comment on above: Performed By: #### F EPRO ####Testing performed at [address] [place] [address] GFR Information Average GFR for 70+ years old = 75. Normal [facility] Comment on above: Result Comment: Hospital Admissions Clerk aviva Kidney disease, GFR = <60. Kidney failure, GFR = <15. The GFR estimate is not adjusted for extreme body surface area or acute process, nor has it been validated for women or ethnic groups other than and . Performed By: #### F EPRO ####Testing performed at [address] [address] Glucose [Mass/Vol] 88 mg/dL Normal 70-100 [facility] Comment on above: Result Comment: NORMAL <100 mg/dL PREDIABETES 101-126 mg/dL DIABETES 126 mg/dL or higher Performed By: #### F EPRO ####Testing performed at [address] [address] Potassium [Moles/Vol] 3.7 mmol/L Normal 3.5-5.1 [facility] Comment on above: Performed By: #### F EPRO ####Testing performed at [address] [address] Sodium [Moles/Vol] 137 mmol/L Normal 137-145 [facility] Comment on above: Performed By: #### F EPRO ####Testing performed at [address] [address] Urea nitrogen [Mass/Vol] 8 mg/dL Normal 7-20 [facility] Comment on above: Performed By: #### F EPRO ####Testing performed at [address] [address] C REACTIVE PROTEINon 024 CRP [Mass/Vol] 58.3 mg/L High 0-10 [facility] Comment on above: Performed By: #### F EPRO ####Testing performed at [address] [address] CBCon 01-22-2024 ABSOLUTE BAS 0.0 10*3/uL Normal 0.0-0.[address] [facility] Comment on above: Performed By: #### F EPRO ####Testing performed at [address] [place] [address] ABSOLUTE EOS 0.2 10*3/uL Normal 0.0-0.[address] [facility] Comment on above: Performed By: #### F EPRO ####Testing performed at [address] [place] [address] ABSOLUTE NEUTROPHIL COUNT 3.8 10*3/uL Normal 1.4-6.5 [facility] Comment on above: Performed By: #### F EPRO ####Testing performed at [address] [place] [address] Basophils/100 WBC (Bld) 0.9 % Normal 0.0-2.0 [facility] Comment on above: Performed By: #### F EPRO ####Testing performed at [address] [place] [address] DTYPE AUTO DIFF Normal [facility] Comment on above: Performed By: #### F EPRO ####Testing performed at [address] [place] [address] Eosinophils/100 WBC (Bld) 3.2 % Normal 0.0-11.0 [facility] Comment on above: Performed By: #### F EPRO ####Testing performed at [address] [place] [address] Lymphocytes (Bld) [#/Vol] 1.1 10*3/uL Low 1.2-3.4 [facility] Comment on above: Performed By: #### F EPRO ####Testing performed at [address] [place] [address] Lymphocytes/100 WBC (Bld) 19.3 % Low 20.0-55.0 [facility] Comment on above: Performed By: #### F EPRO ####Testing performed at [address] [place] [address] Monocytes (Bld) [#/Vol] 0.5 10*3/uL Normal 0.0-0.7 [facility] Comment on above: Performed By: #### F EPRO ####Testing performed at [address] [address] Monocytes/100 WBC (Bld) 8.5 % Normal 0.0-10.0 [facility] Comment on above: Performed By: #### F EPRO ####Testing performed at [address] [address] Neutrophils/100 WBC (Bld) 68.1 % Normal 37.0-75.0 [facility] Comment on above: Performed By: #### F EPRO ####Testing performed at [address] [address] Erythrocyte distribution width (RBC) [Ratio] 14.1 % Normal 11.5-14.5 [facility] Comment on above: Performed By: #### F EPRO ####Testing performed at [address] [place] [address] Hematocrit (Bld) [Volume fraction] 31.8 % Low 36.0-48.0 [facility] Comment on above: Performed By: #### F EPRO ####Testing performed at [address] [place] [address] Hemoglobin (Bld) [Mass/Vol] 10.7 g/dL Low 12.0-16.0 [facility] Comment on above: Performed By: #### F EPRO ####Testing performed at [address] [address] MCH (RBC) [Entitic mass] 31.7 pg Normal 26.0-35.0 [facility] Comment on above: Performed By: #### F EPRO ####Testing performed at [address] [place] [address] MCHC (RBC) [Mass/Vol] 33.6 g/dL Normal 27.0-37.0 [facility] Comment on above: Performed By: #### F EPRO ####Testing performed at [address] [address] MCV (RBC) [Entitic vol] 94.6 fL Normal 80.0-100.0 [facility] Comment on above: Performed By: #### F EPRO ####Testing performed at [address] [address] Platelet mean volume (Bld) [Entitic vol] 7.0 fL Low 7.4-11.0 [facility] Comment on above: Performed By: #### F EPRO ####Testing performed at [address] [address] Platelets (Bld) [#/Vol] 407 10*3/uL High 130-400 [facility] Comment on above: Performed By: #### F EPRO ####Testing performed at [address] [address] RBC (Bld) [#/Vol] 3.36 10*6/uL Low 4.0-5.4 [facility] Comment on above: Performed By: #### F EPRO ####Testing performed at [address] [address] WBC (Bld) [#/Vol] 5.6 10*3/uL Normal 3.6-11.0 [facility] Comment on above: Performed By: #### F EPRO ####Testing performed at [address] [address] ESRon 01-22-2024 ESR (Bld) [Velocity] 71 mm/h High 0-30 [facility] Comment on above: Performed By: #### F EPRO ####Testing performed at [address] [place] [address] IRON PROFILEon 01-22-2024 IRON BINDING 164 UG/DL Low 250-450 [facility] Comment on above: Performed By: #### F EPRO ####Testing performed at [id number] [place] [address] TRANSFERRIN SATURATION,CALCULATED 23 % Normal [facility] Comment on above: Performed By: #### F EPRO ####Testing performed at [id number] [place] [address] Iron [Mass/Vol] 37 ug/dL Normal 37-170 [facility] Comment on above: Performed By: #### F EPRO ####Testing performed at [address] [place] [address] Laboratory - Chemistry and C hemistry - challengeon 01-22-2024 Iron [Mass/Vol] 37 ug/dL [facility] Iron binding capacity [Mass/Vol] 164 Low [facility] Iron saturation [Mass fraction] 23 % [facility] Anion gap [Moles/Vol] 3 mmol/L Low [facility] Calcium [Mass/Vol] 8.8 mg/dL [facility] Chloride [Moles/Vol] 101 mmol/L [facility] CO2 [Moles/Vol] 33 mmol/L High [facility] Creatinine [Mass/Vol] 0.60 mg/dL Low [facility] CRP [Mass/Vol] 58.3 mg/L High 0 - 10 MG/L [facility] GFR/1.73 sq M.predicted among blacks MDRD (S/P/Bld) [Vol rate/Area] 123 mL/min/{1.73_m2} ml/min/1.73sq .m [facility] GFR/1.73 sq M.predicted among non-blacks MDRD (S/P/Bld) [Vol rate/Area] 102 mL/min/{1.73_m2} ml/min/1.73sq .m [facility] Glucose post fast [Mass/Vol] 88 mg/dL [facility] Potassium [Moles/Vol] 3.7 mmol/L [facility] Sodium [Moles/Vol] 137 mmol/L [facility] Urea nitrogen [Mass/Vol] 8 mg/dL [facility] Laboratory - Hematology and Cell countson 01-22-2024 ESR (Bld) [Velocity] 71 mm/h High [facility] Basophils/100 WBC (Bld) 0.9 % 0.0 - 2.0 % [facility] Differential cell count method Nom (Bld) AUTO DIFF % [facility] Eosinophils (Bld) [#/Vol] 0.2 10*3/uL 0.0 - 0.7 10*3/uL [facility] Eosinophils/100 WBC (Bld) 3.2 % 0.0 - 11.0 % [facility] Erythrocyte distribution width (RBC) [Ratio] 14.1 % 11.5 - 14.5 % [facility] Hematocrit (Bld) [Volume fraction] 31.8 % Low 36.0 - 48.0 % [facility] Hemoglobin (Bld) [Mass/Vol] 10.7 g/dL Low [facility] Lymphocytes (Bld) [#/Vol] 1.1 10*3/uL Low 1.2 - 3.4 10*3/uL [facility] Lymphocytes/100 WBC (Bld) 19.3 % Low 20.0 - 55.0 % [facility] MCH (RBC) [Entitic mass] 31.7 pg 26.0 - 35.0 PG [facility] MCHC (RBC) [Mass/Vol] 33.6 g/dL [facility] MCV (RBC) [Entitic vol] 94.6 fL [facility] Monocytes (Bld) [#/Vol] 0.5 10*3/uL 0.0 - 0.7 10*3/uL [facility] Monocytes/100 WBC (Bld) 8.5 % 0.0 - 10.0 % [facility] Neutrophils (Bld) [#/Vol] 3.8 10*3/uL 1.4 - 6.5 10*3/uL [facility] Neutrophils/100 WBC (Bld) 68.1 % 37.0 - 75.0 % [facility] Platelet mean volume (Bld) [Entitic vol] 7.0 fL Low [facility] Platelets (Bld) [#/Vol] 407 10*3/uL High 130 - 400 10*3/uL [facility] RBC (Bld) [#/Vol] 3.36 10*6/uL Low 4.0 - 5.4 10*6/uL [facility] WBC (Bld) [#/Vol] 5.6 10*3/uL 3.6 - 11.0 10*3/uL [facility] No Panel Informationon 01-21 Interpretation and review of laboratory results Abnormal [facility] Interpretation and review of laboratory results Abnormal [facility] GFR COMMENT Average GFR for 70+ years old = 75. [facility] Interpretation and review of laboratory results Abnormal [facility] ABSOLUTE BASOPHIL COUNT 0.0 10*3/uL 0.0 - 0.2 10*3/uL [facility] Interpretation and review of laboratory results Abnormal [facility] BMP FASTINGon 01-21-2024 Anion gap [Moles/Vol] 3 mmol/L Low 8-16 [facility] Calcium [Mass/Vol] 8.6 mg/dL Normal 8.4-10.2 [facility] Chloride [Moles/Vol] 102 mmol/L Normal 98-107 [facility] Comment on above: Result Comment: Plea se note: Triglyceride levels of 600mg/dL or higher may positively bias chloride results by approximately 2.1 mmol CO2 [Moles/Vol] 32 mmol/L High 22-30 [facility] Creatinine [Mass/Vol] 0.60 mg/dL Low 0.7-1.2 [facility] EST. GFR, 123 ml/min/1.73sq.m [facility] EST. GFR,Non 102 ml/min/1.73sq.m [facility] GFR Information Average GFR for 70+ years old = 75. Normal [facility] Comment on above: Result Comment: Hospital Admissions Clerk aviva Kidney disease, GFR = <60. Kidney [...] higher Potassium [Moles/Vol] 3.6 mmol/L Normal 3.5-5.1 [facility] Sodium [Moles/Vol] 137 mmol/L Normal 137-145 [facility] Urea nitrogen [Mass/Vol] 8 mg/dL Normal 7-20 [facility] CBCon 01-21-2024 ABSOLUTE BAS 0.0 10*3/uL Normal 0.0-0.[address] [facility] ABSOLUTE EOS 0.2 10*3/uL Normal 0.0-0.[address] [facility] ABSOLUTE NEUTROPHIL COUNT 3.9 10*3/uL Normal 1.4-6.5 [...] MCHC (RBC) [Mass/Vol] 34.3 g/dL Normal 27.0-37.0 [facility] MCV (RBC) [Entitic vol] 95.0 fL Normal 80.0-100.0 [facility] Platelet mean volume (Bld) [Entitic vol] 6.9 fL Low 7.4-11.0 [facility] Platelets (Bld) [#/Vol] 370 10*3/uL Normal 130-400 [facility] RBC (Bld) [#/Vol] 2.91 10*6/uL Low 4.0-5.4 [facility] WBC (Bld) [#/Vol] 5.9 10*3/uL Normal 3.6-11.0 [facility] Laboratory - Chemistry and C hemistry - challengeon 01-21-2024 Anion gap [Moles/Vol] 3 mmol/L Low [facility] Calcium [Mass/Vol] 8.6 mg/dL [facility] Chloride [Moles/Vol] 102 mmol/L [facility] CO2 [Moles/Vol] 32 mmol/L High [facility] Creatinine [Mass/Vol] 0.60 mg/dL Low [facility] GFR/1.73 sq M.predicted among blacks MDRD (S/P/Bld) [Vol rate/Area] 123 mL/min/{1.73_m2} ml/min/1.73sq .m [facility] GFR/1.73 sq M.predicted among non-blacks MDRD (S/P/Bld) [Vol rate/Area] 102 mL/min/{1.73_m2} ml/min/1.73sq .m [facility] Glucose post fast [Mass/Vol] 100 mg/dL [facility] Potassium [Moles/Vol] 3.6 mmol/L [facility] Sodium [Moles/Vol] 137 mmol/L [facility] Urea nitrogen [Mass/Vol] 8 mg/dL [facility] Laboratory - Hematology and Cell countson 01-21-2024 Basophils/100 WBC (Bld) 0.6 % 0.0 - 2.0 % [facility] Differential cell count method Nom (Bld) AUTO DIFF % [facility] Eosinophils (Bld) [#/Vol] 0.2 10*3/uL 0.0 - 0.7 10*3/uL [facility] Eosinophils/100 WBC (Bld) 3.6 % 0.0 - 11.0 % [facility] Erythrocyte distribution width (RBC) [Ratio] 14.1 % 11.5 - 14.5 % [facility] Hematocrit (Bld) [Volume fraction] 27.7 % Low 36.0 - 48.0 % [facility] Hemoglobin (Bld) [Mass/Vol] 9.5 g/dL Low [facility] Lymphocytes (Bld) [#/Vol] 1.2 10*3/uL 1.2 - 3.4 10*3/uL [facility] Lymphocytes/100 WBC (Bld) 19.7 % Low 20.0 - 55.0 % [facility] MCH (RBC) [Entitic mass] 32.6 pg 26.0 - 35.0 PG [facility] MCHC (RBC) [Mass/Vol] 34.3 g/dL [facility] [facility] MCV (RBC) [Entitic vol] 95.0 fL [facility] Monocytes (Bld) [#/Vol] 0.6 10*3/uL 0.0 - 0.7 10*3/uL [facility] Monocytes/100 WBC (Bld) 9.9 % 0.0 - 10.0 % [facility] Neutrophils (Bld) [#/Vol] 3.9 10*3/uL 1.4 - 6.5 10*3/uL [facility] Neutrophils/100 WBC (Bld) 66.2 % 37.0 - 75.0 % [facility] Platelet mean volume (Bld) [Entitic vol] 6.9 fL Low [facility] Platelets (Bld) [#/Vol] 370 10*3/uL 130 - 400 10*3/uL [facility] RBC (Bld) [#/Vol] 2.91 10*6/uL Low 4.0 - 5.4 10*6/uL [facility] WBC (Bld) [#/Vol] 5.9 10*3/uL 3.6 - 11.0 10*3/uL [facility] Laboratory - Microbiology an d Antimicrobial susceptibilityon 01-21-2024 MRSA isol Org specific cx Ql (Nose) Negative NEGATIVE [facility] Laboratory - Urinalysison Bacteria LM.HPF (Urine sed) [#/Area] TRACE Abnormal NEGATIVE [facility] Casts LM.LPF (Urine sed) [#/Area] NONE NONE /LPF [facility] Crystals LM Nom (Urine sed) NONE NONE [facility] Epithelial cells LM Ql (Urine sed) 1 TO 5 /HPF [facility] Mucus Ql (Urine sed) Negative NEGATIVE [facility] RBC LM.HPF (Urine sed) [#/Area] 1 TO 5 NEGATIVE /HPF [facility] Urine sediment comments LM Girish (Urine sed) REFLEX CULTURE PER ESTABLISHED CRITERIA. [facility] WBC LM.HPF (Urine sed) [#/Area] Negative NEGATIVE /HPF [facility] MRSA SCREENon 01-21-2024 MRSA DNA SMILYE+probe Ql (Unsp spec) Negative Normal NEGATIVE [facility] STAPH AUREUS SCREEN Negative Normal NEGATIVE [facility] Comment on above: Result Comment: TEST ING PERFORMED BY PCR No Panel Informationon 01-20 Interpretation and review of laboratory results Abnormal [facility] STAPHYOCOCCUS AUREUS BY PCR Negative NEGATIVE [facility] GFR COMMENT Average GFR for 70+ years old = 75. [facility] Interpretation and review of laboratory results Abnormal [facility] ABSOLUTE BASOPHIL COUNT 0.0 10*3/uL 0.0 - 0.2 10*3/uL [facility] Interpretation and review of laboratory results Abnormal [facility] URINE CULTUREon 01-21-2024 Bacteria identified Cx Nom (U) SPECIMEN DESCRIPTION URINE - OTHER UA DIPSTICK LEUKOCYTE POSITIVE * Result Note: NITRITE NEGATIVE * CULTURE NO PATHOGENS ISOLATED * Result Note: Testing performed at [place] [address] * REPORT STATUS 01/23/2024 * Result Note: FINAL * Normal [facility] Comment on above: Performed By: #### A URNC #### Testing performed at [address] [address] Testing performed at [address] [address] URINE MICROSCOPICon 01-21-20 24 BACTERIA TRACE Abnormal NEGATIVE [facility] CASTS NONE Normal NONE [facility] CRYSTAL NONE Normal NONE [facility] Epithelial cells LM Ql (Urine sed) 1 TO 5 Normal [facility] Mucus Ql (Urine sed) Negative Normal NEGATIVE [facility] URINE COMMENT REFLEX CULTURE PER ESTABLISHED CRITERIA. Normal [facility] URINE RBC'S 1 TO 5 Normal NEGATIVE [facility] URINE WBC'S Negative Normal NEGATIVE [facility] 25 0H VITAMIN D LEVELon 25 0H VITAMIN D LEVEL 16.9 NG/ML Normal [facility] Comment on above: Result Comment: DEFICIENT <20 NG/ML INSUFFICIENT 20-<30 NG/ML SUFFICIENT 30-100 NG/ML POTENTIAL TOXICITY >100 NG/ML BMP FASTINGon 01-20-2024 Anion gap [Moles/Vol] 2 mmol/L Low 8-16 [facility] Comment on above: Performed By: #### A CBC, FEPRO ####Testing performed at [address] [address] Calcium [Mass/Vol] 8.3 mg/dL Low 8.4-10.2 [facility] Comment on above: Performed By: #### A CBC, FEPRO ####Testing performed at [address] [address] Chloride [Moles/Vol] 103 mmol/L Normal 98-107 [facility] Comment on above: Result Comment: Plea se note: Triglyceride levels of 600mg/dL or higher may positively bias chloride results by approximately 2.1 mmol Performed By: #### A CBC, FEPRO ####Testing performed at [address] [address] CO2 [Moles/Vol] 31 mmol/L High 22-30 [facility] Comment on above: Performed By: #### A CBC, FEPRO ####Testing performed at [address] [address] Creatinine [Mass/Vol] 0.60 mg/dL Low 0.7-1.2 [facility] Comment on above: Performed By: #### A CBC, FEPRO ####Testing performed at [address] [address] EST. GFR, 123 ml/min/1.73sq.m [facility] Comment on above: Performed By: #### A CBC, FEPRO ####Testing performed at [address] [address] EST. GFR,Non 102 ml/min/1.73sq.m [facility] Comment on above: Performed By: #### A CBC, FEPRO ####Testing performed at [place] [id number] GFR Information Average GFR for 70+ years old = 75. [facility] Comment on above: Result Comment: Hospital Admissions Clerk aviva Kidney disease, GFR = <60. Kidney failure, GFR = <15. The GFR estimate is not adjusted for extreme body surface area or acute process, nor has it been validated for women or ethnic groups other than and . Performed By: #### A CBC, FEPRO ####Testing performed at [place] [id number] Glucose [Mass/Vol] 91 mg/dL Normal 70-100 [facility] Comment on above: Result Comment: NORMAL <100 mg/dL PREDIABETES 101-126 mg/dL DIABETES 126 mg/dL or higher Performed By: #### A CBC, FEPRO ####Testing performed at [address] [address] Potassium [Moles/Vol] 3.8 mmol/L Normal 3.5-5.1 [facility] Comment on above: Performed By: #### A CBC, FEPRO ####Testing performed at [place] [id number] Sodium [Moles/Vol] 136 mmol/L Low 137-145 [facility] Comment on above: Performed By: #### A CBC, FEPRO ####Testing performed at [facility] [address] [address] Urea nitrogen [Mass/Vol] 9 mg/dL Normal 7-20 [facility] Comment on above: Performed By: #### A CBC, FEPRO ####Testing performed at [address] [address] CBCon 01-20-2024 ABSOLUTE BAS 0.0 10*3/uL Normal 0.0-0.[address] [facility] Comment on above: Performed By: #### A CBC, FEPRO ####Testing performed at [address] [address] ABSOLUTE EOS 0.2 10*3/uL Normal 0.0-0.[address] [facility] Comment on above: Performed By: #### A CBC, FEPRO ####Testing performed at [address] [address] ABSOLUTE NEUTROPHIL COUNT 4.1 10*3/uL Normal 1.4-6.5 [facility] Comment on above: Performed By: #### A CBC, FEPRO ####Testing performed at [address] [address] Basophils/100 WBC (Bld) 0.8 % Normal 0.0-2.0 [facility] Comment on above: Performed By: #### A CBC, FEPRO ####Testing performed at [address] [address] DTYPE AUTO DIFF Normal [facility] Comment on above: Performed By: #### A CBC, FEPRO ####Testing performed at [address] [address] Eosinophils/100 WBC (Bld) 3.0 % Normal 0.0-11.0 [facility] Comment on above: Performed By: #### A CBC, FEPRO ####Testing performed at [address] [address] Lymphocytes (Bld) [#/Vol] 1.2 10*3/uL Normal 1.2-3.4 [facility] Comment on above: Performed By: #### A CBC, FEPRO ####Testing performed at [address] [address] Lymphocytes/100 WBC (Bld) 19.6 % Low 20.0-55.0 [facility] Comment on above: Performed By: #### A CBC, FEPRO ####Testing performed at [address] [address] Monocytes (Bld) [#/Vol] 0.7 10*3/uL Normal 0.0-0.7 [facility] Comment on above: Performed By: #### A CBC, FEPRO ####Testing performed at [address] [address] Monocytes/100 WBC (Bld) 10.9 % High 0.0-10.0 [facility] Comment on above: Performed By: #### A CBC, FEPRO ####Testing performed at [address] [address] Neutrophils/100 WBC (Bld) 65.7 % Normal 37.0-75.0 [facility] Comment on above: Performed By: #### A CBC, FEPRO ####Testing performed at [address] [address] Erythrocyte distribution width (RBC) [Ratio] 14.0 % Normal 11.5-14.5 [facility] Comment on above: Performed By: #### A CBC, FEPRO ####Testing performed at [address] [address] Hematocrit (Bld) [Volume fraction] 27.6 % Low 36.0-48.0 [facility] Comment on above: Performed By: #### A CBC, FEPRO ####Testing performed at [address] [address] Hemoglobin (Bld) [Mass/Vol] 9.4 g/dL Low 12.0-16.0 [facility] Comment on above: Performed By: #### A CBC, FEPRO ####Testing performed at [address] [address] MCH (RBC) [Entitic mass] 32.3 pg Normal 26.0-35.0 [facility] Comment on above: Performed By: #### A CBC, FEPRO ####Testing performed at [address] [address] MCHC (RBC) [Mass/Vol] 34.0 g/dL Normal 27.0-37.0 [facility] Comment on above: Performed By: #### A CBC, FEPRO ####Testing performed at [address] [address] MCV (RBC) [Entitic vol] 95.0 fL Normal 80.0-100.0 [facility] Comment on above: Performed By: #### A CBC, FEPRO ####Testing performed at [address] [address] Platelet mean volume (Bld) [Entitic vol] 6.9 fL Low 7.4-11.0 [facility] Comment on above: Performed By: #### A CBC, FEPRO ####Testing performed at [address] [address] Platelets (Bld) [#/Vol] 357 10*3/uL Normal 130-400 [facility] Comment on above: Performed By: #### A CBC, FEPRO ####Testing performed at [address] [address] RBC (Bld) [#/Vol] 2.90 10*6/uL Low 4.0-5.4 [facility] Comment on above: Performed By: #### A CBC, FEPRO ####Testing performed at [address] [address] WBC (Bld) [#/Vol] 6.3 10*3/uL Normal 3.6-11.0 [facility] Comment on above: Performed By: #### A CBC, FEPRO ####Testing performed at [facility] [place] [address] IRON PROFILEon 01-20-2024 IRON BINDING 144 UG/DL Low 250-450 [facility] Comment on above: Performed By: #### A CBC #### Testing performed at [place] [address] [place] [address] TRANSFERRIN SATURATION,CALCULATED 20 % Normal [facility] Comment on above: Performed By: #### A CBC #### Testing performed at [place] [address] [place] [address] Iron [Mass/Vol] 29 ug/dL Low 37-170 [facility] Comment on above: Performed By: #### A CBC #### Testing performed at [place] [address] [place] [address] Laboratory - Chemistry and C hemistry - challengeon 01-20-2024 25-hydroxyvitamin D [Mass/Vol] 16.9 NG/ML [facility] Parathyrin.intact [Mass/Vol] 40.2 pg/mL 14.5 - 75.2 pg/mL [facility] Iron [Mass/Vol] 29 ug/dL Low [facility] Iron binding capacity [Mass/Vol] 144 Low [facility] Anion gap [Moles/Vol] 2 mmol/L Low [facility] Calcium [Mass/Vol] 8.3 mg/dL Low [facility] Chloride [Moles/Vol] 103 mmol/L [facility] CO2 [Moles/Vol] 31 mmol/L High [facility] Creatinine [Mass/Vol] 0.60 mg/dL Low [facility] GFR/1.73 sq M.predicted among blacks MDRD (S/P/Bld) [Vol rate/Area] 123 mL/min/{1.73_m2} ml/min/1.73sq .m [facility] GFR/1.73 sq M.predicted among non-blacks MDRD (S/P/Bld) [Vol rate/Area] 102 mL/min/{1.73_m2} ml/min/1.73sq .m [facility] Glucose post fast [Mass/Vol] 91 mg/dL [facility] Potassium [Moles/Vol] 3.8 mmol/L [facility] Sodium [Moles/Vol] 136 mmol/L Low [facility] Urea nitrogen [Mass/Vol] 9 mg/dL [facility] Laboratory - Hematology and Cell countson 01-20-2024 Basophils/100 WBC (Bld) 0.8 % 0.0 - 2.0 % [facility] Differential cell count method Nom (Bld) AUTO DIFF % [facility] Eosinophils (Bld) [#/Vol] 0.2 10*3/uL 0.0 - 0.7 10*3/uL [facility] Eosinophils/100 WBC (Bld) 3.0 % 0.0 - 11.0 % [facility] Erythrocyte distribution width (RBC) [Ratio] 14.0 % 11.5 - 14.5 % [facility] Hematocrit (Bld) [Volume fraction] 27.6 % Low 36.0 - 48.0 % [facility] Hemoglobin (Bld) [Mass/Vol] 9.4 g/dL Low [facility] Lymphocytes (Bld) [#/Vol] 1.2 10*3/uL 1.2 - 3.4 10*3/uL [facility] Lymphocytes/100 WBC (Bld) 19.6 % Low 20.0 - 55.0 % [facility] MCH (RBC) [Entitic mass] 32.3 pg 26.0 - 35.0 PG [facility] MCHC (RBC) [Mass/Vol] 34.0 g/dL [facility] MCV (RBC) [Entitic vol] 95.0 fL [facility] Monocytes (Bld) [#/Vol] 0.7 10*3/uL 0.0 - 0.7 10*3/uL [facility] Monocytes/100 WBC (Bld) 10.9 % High 0.0 - 10.0 % [facility] Neutrophils (Bld) [#/Vol] 4.1 10*3/uL 1.4 - 6.5 10*3/uL [facility] Neutrophils/100 WBC (Bld) 65.7 % 37.0 - 75.0 % [facility] Platelet mean volume (Bld) [Entitic vol] 6.9 fL Low [facility] Platelets (Bld) [#/Vol] 357 10*3/uL 130 - 400 10*3/uL [facility] RBC (Bld) [#/Vol] 2.90 10*6/uL Low 4.0 - 5.4 10*6/uL [facility] WBC (Bld) [#/Vol] 6.3 10*3/uL 3.6 - 11.0 10*3/uL [facility] No Panel Informationon 01-19 [facility] Interpretation and review of laboratory results Abnormal [facility] Transferrin Saturation (%) 20 % [facility] GFR COMMENT Average GFR for 70+ years old = 75. [facility] Interpretation and review of laboratory results Abnormal [facility] ABSOLUTE BASOPHIL COUNT 0.0 10*3/uL 0.0 - 0.2 10*3/uL [facility] Interpretation and review of laboratory results Abnormal [facility] PTH,INTACTon 01-20-2024 PTH,INTACT 40.2 pg/mL Normal 14.5-75.2 [facility] Comment on above: Performed By: #### A CBC #### [place] [address] Portable XR Chest Viewson RADIOLOGY RADIOLOGY [facility] Radiology Study observation (narrative) [facility] Portable XR Chest ViewsOrder ed By: Katina Carlisle on 01-20-2024 [facility] XR CHEST 1 VIEW PORTABLEon 0 01-20-2024 [...] 07-0 Anion gap [Moles/Vol] 3 mmol/L MMOL/L [facility] Calcium [Mass/Vol] 8.4 mg/dL [facility] Chloride [Moles/Vol] 105 mmol/L [facility] Comment on above: Please note: Triglyc eride levels of 600mg/dL or higher may positively bias chloride results by approximately 2.1 mmol CO2 [Moles/Vol] 27 mmol/L [facility] Creatinine [Mass/Vol] 0.60 mg/dL Low [facility] GFR COMMENT Average GFR for 70+ years old = 75. [facility] Comment on above: Chronic Kidney disea se, GFR = <60. Kidney failure, GFR = <15. The GFR estimate is not adjusted for extreme body surface area or acute process, nor has it been validated for women or ethnic groups other than and . GFR/1.73 sq M.predicted among blacks MDRD (S/P/Bld) [Vol rate/Area] 123 mL/min/{1.73_m2} ml/min/1.73sq .m [facility] GFR/1.73 sq M.predicted among non-blacks MDRD (S/P/Bld) [Vol rate/Area] 102 mL/min/{1.73_m2} ml/min/1.73sq .m [facility] Glucose post fast [Mass/Vol] 119 mg/dL High [facility] Comment on above: NORMAL <100 mg/dL PREDIABETES 101-126 mg/dL DIABETES 126 mg/dL or higher Interpretation and review of laboratory results Abnormal [facility] Potassium [Moles/Vol] 3.5 mmol/L [facility] Sodium [Moles/Vol] 135 mmol/L Low [facility] Urea nitrogen [Mass/Vol] 10 mg/dL [facility] BMP FASTINGon 01-18-2024 Anion gap [Moles/Vol] 3 mmol/L Normal [facility] Comment on above: Performed By: #### U GRUPO, UMAC #### Testing performed at [address] [address] Calcium [Mass/Vol] 8.4 mg/dL Normal 8.4-10.2 [facility] Comment on above: Performed By: #### U GRUPO, UMAC #### Testing performed at [address] [address] Chloride [Moles/Vol] 105 mmol/L Normal 98-107 [facility] Comment on above: Result Comment: Shonda matthews note: Triglyceride levels of 600mg/dL or higher may positively bias chloride results by approximately 2.1 mmol Performed By: #### U GRUPO, UMAC #### Testing performed at [address] [address] CO2 [Moles/Vol] 27 mmol/L Normal 22-30 [facility] Comment on above: Performed By: #### U GRUPO, UMAC #### Testing performed at [address] [address] Creatinine [Mass/Vol] 0.60 mg/dL Low 0.70-1.20 [facility] Comment on above: Performed By: #### U GRUPO, UMAC #### Testing performed at [address] [address] EST. GFR, 123 ml/min/1.73sq.m [facility] Comment on above: Performed By: #### U GRUPO, UMAC #### Testing performed at [address] [address] EST. GFR,Non 102 ml/min/1.73sq.m [facility] Comment on above: Performed By: #### U GRUPO, UMAC #### Testing performed at [address] [address] GFR Information Average GFR for 70+ years old = 75. Normal [facility] Comment on above: Result Comment: Hospital Admissions Clerk aviva Kidney disease, GFR = <60. Kidney failure, GFR = <15. The GFR estimate is not adjusted for extreme body surface area or acute process, nor has it been validated for women or ethnic groups other than and . Performed By: #### U GRUPO, UMAC #### Testing performed at [address] [address] Glucose [Mass/Vol] 119 mg/dL High 70-100 [facility] Comment on above: Result Comment: NORMAL <100 mg/dL PREDIABETES 101-126 mg/dL DIABETES 126 mg/dL or higher Performed By: #### U GRUPO, UMAC #### Testing performed at [address] [address] Potassium [Moles/Vol] 3.5 mmol/L Normal 3.5-5.1 [facility] Comment on above: Performed By: #### U GRUPO, UMAC #### Testing performed at [address] [address] Sodium [Moles/Vol] 135 mmol/L Low 137-145 [facility] Comment on above: Performed By: #### U GRUPO, UMAC #### Testing performed at [address] [address] Urea nitrogen [Mass/Vol] 10 mg/dL Normal 7-20 [facility] Comment on above: Performed By: #### U GRUPO, UMAC #### Testing performed at [address] [address] CBCon 01-17-2024 ABSOLUTE BAS 0.0 10*3/uL Normal 0.0-0.2 [facility] Comment on above: Performed By: #### U GRUPO, UMAC #### Testing performed at [address] [address] ABSOLUTE EOS 0.1 10*3/uL Normal 0.0-0.7 [facility] Comment on above: Performed By: #### U GRUPO, UMAC #### Testing performed at [address] [address] ABSOLUTE NEUTROPHIL COUNT 4.7 10*3/uL Normal 1.4-6.5 [facility] Comment on above: Performed By: #### U GRUPO, UMAC #### Testing performed at [address] [address] Basophils/100 WBC (Bld) 0.6 % Normal 0.0-2.0 [facility] Comment on above: Performed By: #### U GRUPO, UMAC #### Testing performed at [address] [address] DTYPE AUTO DIFF Normal [facility] Comment on above: Performed By: #### U GRUPO, UMAC #### Testing performed at [address] [address] Eosinophils/100 WBC (Bld) 1.9 % Normal 0.0-11.0 [facility] Comment on above: Performed By: #### U GRUPO, UMAC #### Testing performed at [address] [address] Erythrocyte distribution width (RBC) [Ratio] 13.9 % Normal 11.5-14.5 [facility] Comment on above: Performed By: #### U GRUPO, UMAC #### Testing performed at [address] [address] Hematocrit (Bld) [Volume fraction] 29.2 % Low 36.0-48.0 [facility] Comment on above: Performed By: #### U GRUPO, UMAC #### Testing performed at [address] [address] Hemoglobin (Bld) [Mass/Vol] 9.8 g/dL Low 12.0-16.0 [facility] Comment on above: Performed By: #### U GRUPO, UMAC #### Testing performed at [address] [address] Lymphocytes (Bld) [#/Vol] 1.1 10*3/uL Low 1.2-3.4 [facility] Comment on above: Performed By: #### U GURPO, UMAC #### Testing performed at [address] [address] Lymphocytes/100 WBC (Bld) 16.5 % Low 20.0-55.0 [facility] Comment on above: Performed By: #### U GRUPO, UMAC #### Testing performed at [address] [address] MCH (RBC) [Entitic mass] 31.8 pg Normal 26.0-35.0 [facility] Comment on above: Performed By: #### U GRUPO, UMAC #### Testing performed at [address] [address] MCHC (RBC) [Mass/Vol] 33.6 g/dL Normal 27.0-37.0 [facility] Comment on above: Performed By: #### U GRUPO, UMAC #### Testing performed at [address] [address] MCV (RBC) [Entitic vol] 94.6 fL Normal 80.0-100.0 [facility] Comment on above: Performed By: #### U GRUPO, UMAC #### Testing performed at [address] [address] Monocytes (Bld) [#/Vol] 0.8 10*3/uL High 0.0-0.7 [facility] Comment on above: Performed By: #### U GRUPO, UMAC #### Testing performed at [address] [address] Monocytes/100 WBC (Bld) 11.9 % High 0.0-10.0 [facility] Comment on above: Performed By: #### U GRUPO, UMAC #### Testing performed at [address] [address] Neutrophils/100 WBC (Bld) 69.1 % Normal 37.0-75.0 [facility] Comment on above: Performed By: #### U GRUPO, UMAC #### Testing performed at [address] [address] Platelet mean volume (Bld) [Entitic vol] 7.9 fL Normal 7.4-11.0 [facility] Comment on above: Performed By: #### U GRUPO, UMAC #### Testing performed at [address] [address] Platelets (Bld) [#/Vol] 279 10*3/uL Normal 130-400 [facility] Comment on above: Performed By: #### U GRUPO, UMAC #### Testing performed at [address] [address] RBC (Bld) [#/Vol] 3.09 10*6/uL Low 4.0-5.4 [facility] Comment on above: Performed By: #### U GRUPO, UMAC #### Testing performed at [address] [address] WBC (Bld) [#/Vol] 6.8 10*3/uL Normal 3.6-11.0 [facility] Comment on above: Performed By: #### U GRUPO, UMAC #### Testing performed at [address] [address] CBC, EDIF, PLATELETon 2023 ABSOLUTE BASOPHIL COUNT 0.0 10*3/uL 0.0 - 0.2 10*3/uL [facility] Basophils/100 WBC (Bld) 0.6 % 0.0 - 2.0 % [facility] Differential cell count method Nom (Bld) AUTO DIFF % [facility] Eosinophils (Bld) [#/Vol] 0.1 10*3/uL 0.0 - 0.7 10*3/uL [facility] Eosinophils/100 WBC (Bld) 1.9 % 0.0 - 11.0 % [facility] Erythrocyte distribution width (RBC) [Ratio] 13.9 % 11.5 - 14.5 % [facility] Hematocrit (Bld) [Volume fraction] 29.2 % Low 36.0 - 48.0 % [facility] Hemoglobin (Bld) [Mass/Vol] 9.8 g/dL Low [facility] Interpretation and review of laboratory results Abnormal [facility] Lymphocytes (Bld) [#/Vol] 1.1 10*3/uL Low 1.2 - 3.4 10*3/uL [facility] Lymphocytes/100 WBC (Bld) 16.5 % Low 20.0 - 55.0 % [facility] MCH (RBC) [Entitic mass] 31.8 pg 26.0 - 35.0 PG [facility] MCHC (RBC) [Mass/Vol] 33.6 g/dL [facility] MCV (RBC) [Entitic vol] 94.6 fL [facility] Monocytes (Bld) [#/Vol] 0.8 10*3/uL High 0.0 - 0.7 10*3/uL [facility] Monocytes/100 WBC (Bld) 11.9 % High 0.0 - 10.0 % [facility] Neutrophils (Bld) [#/Vol] 4.7 10*3/uL 1.4 - 6.5 10*3/uL [facility] Neutrophils/100 WBC (Bld) 69.1 % 37.0 - 75.0 % [facility] Platelet mean volume (Bld) [Entitic vol] 7.9 fL [facility] Platelets (Bld) [#/Vol] 279 10*3/uL 130 - 400 10*3/uL [facility] RBC (Bld) [#/Vol] 3.09 10*6/uL Low 4.0 - 5.4 10*6/uL [facility] WBC (Bld) [#/Vol] 6.8 10*3/uL 3.6 - 11.0 10*3/uL [facility] RENAL FUNCTION PANELon 01-16 Albumin [Mass/Vol] 2.6 G/dl Low 3.5 - 5.0 G/dl [facility] Calcium [Mass/Vol] 8.2 mg/dL Low [facility] Chloride [Moles/Vol] 105 mmol/L [facility] Comment on above: Please note: Triglyc eride levels of 600mg/dL or higher may positively bias chloride results by approximately 2.1 mmol CO2 [Moles/Vol] 29 mmol/L [facility] Creatinine [Mass/Vol] 0.51 mg/dL Low [facility] GFR COMMENT Average GFR for 70+ years old = 75. [facility] Comment on above: Chronic Kidney disea se, GFR = <60. Kidney failure, GFR = <15. The GFR estimate is not adjusted for extreme body surface area or acute process, nor has it been validated for women or ethnic groups other than and . GFR/1.73 sq M.predicted among blacks MDRD (S/P/Bld) [Vol rate/Area] 149 mL/min/{1.73_m2} ml/min/1.73sq .m [facility] GFR/1.73 sq M.predicted among non-blacks MDRD (S/P/Bld) [Vol rate/Area] 123 mL/min/{1.73_m2} ml/min/1.73sq .m [facility] Glucose post fast [Mass/Vol] 106 mg/dL High [facility] Comment on above: NORMAL <100 mg/dL PREDIABETES 101-126 mg/dL DIABETES 126 mg/dL or higher Interpretation and review of laboratory results Abnormal [facility] Phosphate [Mass/Vol] 2.6 mg/dL [facility] Potassium [Moles/Vol] 3.3 mmol/L Low [facility] Sodium [Moles/Vol] 135 mmol/L Low [facility] Urea nitrogen [Mass/Vol] 10 mg/dL [facility] RENAL PANEL,FASTINGon 2023 ALBUMIN 2.6 G/dl Low 3.5-5.0 [facility] Comment on above: Performed By: #### U GRUPO, UMAC #### Testing performed at [address] [address] Calcium [Mass/Vol] 8.2 mg/dL Low 8.4-10.2 [facility] Comment on above: Performed By: #### U GRUPO, UMAC #### Testing performed at [address] [address] Chloride [Moles/Vol] 105 mmol/L Normal 98-107 [facility] Comment on above: Result Comment: Shonda matthews note: Triglyceride levels of 600mg/dL or higher may positively bias chloride results by approximately 2.1 mmol Performed By: #### U GRUPO, UMAC #### Testing performed at [address] [address] CO2 [Moles/Vol] 29 mmol/L Normal 22-30 [facility] Comment on above: Performed By: #### U GRUPO, UMAC #### Testing performed at [address] [address] Creatinine [Mass/Vol] 0.51 mg/dL Low 0.70-1.20 [facility] Comment on above: Performed By: #### U GRUPO, UMAC #### Testing performed at [address] [address] EST. GFR, 149 ml/min/1.73sq.m [facility] Comment on above: Performed By: #### U GRUPO, UMAC #### Testing performed at [address] [address] EST. GFR,Non 123 ml/min/1.73sq.m [facility] Comment on above: Performed By: #### U GRUPO, UMAC #### Testing performed at [address] [address] GFR Information Average GFR for 70+ years old = 75. Normal [facility] Comment on above: Result Comment: Hospital Admissions Clerk aviva Kidney disease, GFR = <60. Kidney failure, GFR = <15. The GFR estimate is not adjusted for extreme body surface area or acute process, nor has it been validated for women or ethnic groups other than and . Performed By: #### U GRUPO, UMAC #### Testing performed at [address] [address] Glucose [Mass/Vol] 106 mg/dL High 70-100 [facility] Comment on above: Result Comment: NORMAL <100 mg/dL PREDIABETES 101-126 mg/dL DIABETES 126 mg/dL or higher Performed By: #### U GRUPO, UMAC #### Testing performed at [address] [address] PHOSPHOROUS 2.6 MG/DL Normal 2.5-4.5 [facility] Comment on above: Performed By: #### U GRUPO, UMAC #### Testing performed at [address] [address] Potassium [Moles/Vol] 3.3 mmol/L Low 3.5-5.1 [facility] Comment on above: Performed By: #### U GRUPO, UMAC #### Testing performed at [address] [address] Sodium [Moles/Vol] 135 mmol/L Low 137-145 [facility] Comment on above: Performed By: #### U GRUPO, UMAC #### Testing performed at [address] [address] Urea nitrogen [Mass/Vol] 10 mg/dL Normal 7-20 [facility] Comment on above: Performed By: #### U [facility] #### Testing performed at [address] [address] SURGICAL PATHOLOGY REQUESTon 01-17-2024 Pathology report final diagnosis Narrative Surgical Final Report Patient Name: CUATE GOODMAN Med. Rec. #: [id number] Physician: ERIK HEREDIA Specimen(s) Received Left femoral [...] articular cartilage degeneration. Sectioning reveals unremarkable bone. Catalytic Case Operator sections are submitted in one cassette and placed in decalcification solution prior to processing. Billing Fee Code(s) A: 49761, 33886 [facility] XR FOOT RIGHT 2 VIEWSon XR [...] and hallux valgus with osseous demineralization. Normal [facility] XR Foot - right 2 [...] DJD and hallux valgus with osseous demineralization. [facility] Radiology Study observation (narrative) [facility] XR Foot - right 2 ViewsOrder ed By: Miguel Marin on 01-17-2024 [facility] Work Phone: CBCon 01-14-2024 ABSOLUTE BAS 0.0 10*3/uL Normal 0.0-0.2 [facility] Comment on above: Performed By: #### U GRUPO, UMAC #### Testing performed at [facility] [address] [place] [address] ABSOLUTE EOS 0.1 10*3/uL Normal 0.0-0.7 [facility] Comment on above: Performed By: #### U GRUPO, UMAC #### Testing performed at [address] [place] [address] ABSOLUTE NEUTROPHIL COUNT 7.6 10*3/uL High 1.4-6.5 [facility] Comment on above: Performed By: #### U GRUPO, UMAC #### Testing performed at [address] [place] [address] Basophils/100 WBC (Bld) 0.3 % Normal 0.0-2.0 [facility] Comment on above: Performed By: #### U GRUPO, UMAC #### Testing performed at [address] [place] [address] DTYPE AUTO DIFF Normal [facility] Comment on above: Performed By: #### U GRUPO, UMAC #### Testing performed at [address] [address] Eosinophils/100 WBC (Bld) 0.5 % Normal 0.0-11.0 [facility] Comment on above: Performed By: #### U GRUPO, UMAC #### Testing performed at [address] [address] Lymphocytes (Bld) [#/Vol] 1.1 10*3/uL Low 1.2-3.4 [facility] Comment on above: Performed By: #### U GRUPO, UMAC #### Testing performed at [address] [place] [address] Lymphocytes/100 WBC (Bld) 11.0 % Low 20.0-55.0 [facility] Comment on above: Performed By: #### U GRUPO, UMAC #### Testing performed at [address] [place] [address] Monocytes (Bld) [#/Vol] 1.1 10*3/uL High 0.0-0.7 [facility] Comment on above: Performed By: #### U GRUPO, UMAC #### Testing performed at [address] [place] [address] Monocytes/100 WBC (Bld) 10.8 % High 0.0-10.0 [facility] Comment on above: Performed By: #### U GRUPO, UMAC #### Testing performed at [address] [address] Neutrophils/100 WBC (Bld) 77.4 % High 37.0-75.0 [facility] Comment on above: Performed By: #### U GRUPO, UMAC #### Testing performed at [address] [address] Erythrocyte distribution width (RBC) [Ratio] 14.6 % High 11.5-14.5 [facility] Comment on above: Performed By: #### U GRUPO, UMAC #### Testing performed at [address] [address] Hematocrit (Bld) [Volume fraction] 32.1 % Low 36.0-48.0 [facility] Comment on above: Performed By: #### U GRUPO, UMAC #### Testing performed at [address] [address] Hemoglobin (Bld) [Mass/Vol] 10.5 g/dL Low 12.0-16.0 [facility] Comment on above: Performed By: #### U GRUPO, UMAC #### Testing performed at [address] [address] MCH (RBC) [Entitic mass] 31.4 pg Normal 26.0-35.0 [facility] Comment on above: Performed By: #### U GRUPO, UMAC #### Testing performed at [address] [address] MCHC (RBC) [Mass/Vol] 32.8 g/dL Normal 27.0-37.0 [facility] Comment on above: Performed By: #### U GRUPO, UMAC #### Testing performed at [address] [address] MCV (RBC) [Entitic vol] 96.0 fL Normal 80.0-100.0 [facility] Comment on above: Performed By: #### U GRUPO, UMAC #### Testing performed at [address] [address] Platelet mean volume (Bld) [Entitic vol] 8.4 fL Normal 7.4-11.0 [facility] Comment on above: Performed By: #### U GRUPO, UMAC #### Testing performed at [address] [address] Platelets (Bld) [#/Vol] 226 10*3/uL Normal 130-400 [facility] Comment on above: Performed By: #### U GRUPO, UMAC #### Testing performed at [address] [address] RBC (Bld) [#/Vol] 3.35 10*6/uL Low 4.0-5.4 [facility] Comment on above: Performed By: #### U GRUPO, UMAC #### Testing performed at [address] [address] WBC (Bld) [#/Vol] 9.9 10*3/uL Normal 3.6-11.0 [facility] Comment on above: Performed By: #### U GRUPO, UMAC #### Testing performed at [address] [address] CBC, EDIF, PLATELETon 2023 ABSOLUTE BASOPHIL COUNT 0.0 10*3/uL 0.0 - 0.2 10*3/uL [facility] Basophils/100 WBC (Bld) 0.3 % 0.0 - 2.0 % [facility] Differential cell count method Nom (Bld) AUTO DIFF % [facility] Eosinophils (Bld) [#/Vol] 0.1 10*3/uL 0.0 - 0.7 10*3/uL [facility] Eosinophils/100 WBC (Bld) 0.5 % 0.0 - 11.0 % [facility] Erythrocyte distribution width (RBC) [Ratio] 14.6 % High 11.5 - 14.5 % [facility] Hematocrit (Bld) [Volume fraction] 32.1 % Low 36.0 - 48.0 % [facility] Hemoglobin (Bld) [Mass/Vol] 10.5 g/dL Low [facility] Interpretation and review of laboratory results Abnormal [facility] Lymphocytes (Bld) [#/Vol] 1.1 10*3/uL Low 1.2 - 3.4 10*3/uL [facility] Lymphocytes/100 WBC (Bld) 11.0 % Low 20.0 - 55.0 % [facility] MCH (RBC) [Entitic mass] 31.4 pg 26.0 - 35.0 PG [facility] MCHC (RBC) [Mass/Vol] 32.8 g/dL [facility] MCV (RBC) [Entitic vol] 96.0 fL [facility] Monocytes (Bld) [#/Vol] 1.1 10*3/uL High 0.0 - 0.7 10*3/uL [facility] Monocytes/100 WBC (Bld) 10.8 % High 0.0 - 10.0 % [facility] Neutrophils (Bld) [#/Vol] 7.6 10*3/uL High 1.4 - 6.5 10*3/uL [facility] Neutrophils/100 WBC (Bld) 77.4 % High 37.0 - 75.0 % [facility] Platelet mean volume (Bld) [Entitic vol] 8.4 fL [facility] Platelets (Bld) [#/Vol] 226 10*3/uL 130 - 400 10*3/uL [facility] RBC (Bld) [#/Vol] 3.35 10*6/uL Low 4.0 - 5.4 10*6/uL [facility] WBC (Bld) [#/Vol] 9.9 10*3/uL 3.6 - 11.0 10*3/uL [facility] BASIC METABOLIC PANELon - Anion gap [Moles/Vol] 4 mmol/L MMOL/L [facility] Calcium [Mass/Vol] 9.0 mg/dL [facility] Chloride [Moles/Vol] 107 mmol/L [facility] Comment on above: Please note: Triglyc eride levels of 600mg/dL or higher may positively bias chloride results by approximately 2.1 mmol CO2 [Moles/Vol] 26 mmol/L [facility] Creatinine [Mass/Vol] 0.70 mg/dL [facility] GFR COMMENT Average GFR for 70+ years old = 75. [facility] Comment on above: Chronic Kidney disea se, GFR = <60. Kidney failure, GFR = <15. The GFR estimate is not adjusted for extreme body surface area or acute process, nor has it been validated for women or ethnic groups other than and . GFR/1.73 sq M.predicted among blacks MDRD (S/P/Bld) [Vol rate/Area] 103 mL/min/{1.73_m2} ml/min/1.73sq .m [facility] GFR/1.73 sq M.predicted among non-blacks MDRD (S/P/Bld) [Vol rate/Area] 85 mL/min/{1.73_m2} ml/min/1.73sq .m [facility] Glucose post fast [Mass/Vol] 164 mg/dL High [facility] Comment on above: NORMAL <100 mg/dL PREDIABETES 101-126 mg/dL DIABETES 126 mg/dL or higher Interpretation and review of laboratory results Abnormal [facility] Potassium [Moles/Vol] 4.2 mmol/L [facility] Sodium [Moles/Vol] 137 mmol/L [facility] Urea nitrogen [Mass/Vol] 19 mg/dL [facility] BMP FASTINGon 01-13-2024 Anion gap [Moles/Vol] 4 mmol/L Normal [facility] Comment on above: Performed By: #### A CBC, BMPF #### Testing performed at [address] [address] Calcium [Mass/Vol] 9.0 mg/dL Normal 8.4-10.2 [facility] Comment on above: Performed By: #### A CBC, BMPF #### Testing performed at [address] [address] Chloride [Moles/Vol] 107 mmol/L Normal 98-107 [facility] Comment on above: Result Comment: Shonda matthews note: Triglyceride levels of 600mg/dL or higher may positively bias chloride results by approximately 2.1 mmol Performed By: #### A CBC, BMPF #### Testing performed at [address] [address] CO2 [Moles/Vol] 26 mmol/L Normal 22-30 [facility] Comment on above: Performed By: #### A CBC, BMPF #### Testing performed at [address] [address] Creatinine [Mass/Vol] 0.70 mg/dL Normal 0.70-1.20 [facility] Comment on above: Performed By: #### A CBC, BMPF #### Testing performed at [address] [address] EST. GFR, 103 ml/min/1.73sq.m [facility] Comment on above: Performed By: #### A CBC, BMPF #### Testing performed at [address] [address] EST. GFR,Non 85 ml/min/1.73sq.m [facility] Comment on above: Performed By: #### A CBC, BMPF #### Testing performed at [address] [address] GFR Information Average GFR for 70+ years old = 75. [facility] Comment on above: Result Comment: Hospital Admissions Clerk aviva Kidney disease, GFR = <60. Kidney failure, GFR = <15. The GFR estimate is not adjusted for extreme body surface area or acute process, nor has it been validated for women or ethnic groups other than and . Performed By: #### A CBC, BMPF #### Testing performed at [address] [address] Glucose [Mass/Vol] 164 mg/dL High 70-100 [facility] Comment on above: Result Comment: NORMAL <100 mg/dL PREDIABETES 101-126 mg/dL DIABETES 126 mg/dL or higher Performed By: #### A CBC, BMPF #### Testing performed at [address] [address] Potassium [Moles/Vol] 4.2 mmol/L Normal 3.5-5.1 [facility] Comment on above: Performed By: #### A CBC, BMPF #### Testing performed at [address] [address] Sodium [Moles/Vol] 137 mmol/L Normal 137-145 [facility] Comment on above: Performed By: #### A CBC, BMPF #### Testing performed at [address] [address] Urea nitrogen [Mass/Vol] 19 mg/dL Normal 7-20 [facility] Comment on above: Performed By: #### A CBC, BMPF #### Testing performed at [address] [place] [address] CBCon 01-13-2024 ABSOLUTE BAS 0.0 10*3/uL Normal 0.0-0.2 [facility] Comment on above: Performed By: #### A CBC, BMPF #### Testing performed at [address] [place] [address] ABSOLUTE EOS 0.0 10*3/uL Normal 0.0-0.7 [facility] Comment on above: Performed By: #### A CBC, BMPF #### Testing performed at [address] [place] [address] ABSOLUTE NEUTROPHIL COUNT 8.6 10*3/uL High 1.4-6.5 [facility] Comment on above: Performed By: #### A CBC, BMPF #### Testing performed at [address] [place] [address] Basophils/100 WBC (Bld) 0.0 % Normal 0.0-2.0 [facility] Comment on above: Performed By: #### A CBC, BMPF #### Testing performed at [address] [place] [address] DTYPE AUTO DIFF Normal [facility] Comment on above: Performed By: #### A CBC, BMPF #### Testing performed at [address] [place] [address] Eosinophils/100 WBC (Bld) 0.0 % Normal 0.0-11.0 [facility] Comment on above: Performed By: #### A CBC, BMPF #### Testing performed at [address] [place] [address] Lymphocytes (Bld) [#/Vol] 0.6 10*3/uL Low 1.2-3.4 [facility] Comment on above: Performed By: #### A CBC, BMPF #### Testing performed at [address] [place] [address] Lymphocytes/100 WBC (Bld) 5.9 % Low 20.0-55.0 [facility] Comment on above: Performed By: #### A CBC, BMPF #### Testing performed at [address] [place] [address] Monocytes (Bld) [#/Vol] 0.8 10*3/uL High 0.0-0.7 [facility] Comment on above: Performed By: #### A CBC, BMPF #### Testing performed at [address] [address] Monocytes/100 WBC (Bld) 8.3 % Normal 0.0-10.0 [facility] Comment on above: Performed By: #### A CBC, BMPF #### Testing performed at [address] [address] Neutrophils/100 WBC (Bld) 85.8 % High 37.0-75.0 [facility] Comment on above: Performed By: #### A CBC, BMPF #### Testing performed at [address] [address] Erythrocyte distribution width (RBC) [Ratio] 14.5 % Normal 11.5-14.5 [facility] Comment on above: Performed By: #### A CBC, BMPF #### Testing performed at [address] [address] Hematocrit (Bld) [Volume fraction] 31.8 % Low 36.0-48.0 [facility] Comment on above: Performed By: #### A CBC, BMPF #### Testing performed at [address] [address] Hemoglobin (Bld) [Mass/Vol] 10.6 g/dL Low 12.0-16.0 [facility] Comment on above: Performed By: #### A CBC, BMPF #### Testing performed at [address] [address] MCH (RBC) [Entitic mass] 31.9 pg Normal 26.0-35.0 [facility] Comment on above: Performed By: #### A CBC, BMPF #### Testing performed at [address] [address] MCHC (RBC) [Mass/Vol] 33.2 g/dL Normal 27.0-37.0 [facility] Comment on above: Performed By: #### A CBC, BMPF #### Testing performed at [address] [place] [address] MCV (RBC) [Entitic vol] 95.9 fL Normal 80.0-100.0 [facility] Comment on above: Performed By: #### A CBC, BMPF #### Testing performed at [address] [address] Platelet mean volume (Bld) [Entitic vol] 8.1 fL Normal 7.4-11.0 [facility] Comment on above: Performed By: #### A CBC, BMPF #### Testing performed at [address] [address] Platelets (Bld) [#/Vol] 228 10*3/uL Normal 130-400 [facility] Comment on above: Performed By: #### A CBC, BMPF #### Testing performed at [address] [address] RBC (Bld) [#/Vol] 3.31 10*6/uL Low 4.0-5.4 [facility] Comment on above: Performed By: #### A CBC, BMPF #### Testing performed at [address] [address] WBC (Bld) [#/Vol] 10.0 10*3/uL Normal 3.6-11.0 [facility] Comment on above: Performed By: #### A CBC, BMPF #### Testing performed at [address] [address] CBC, EDIF, PLATELETon 2023 ABSOLUTE BASOPHIL COUNT 0.0 10*3/uL 0.0 - 0.2 10*3/uL [facility] Basophils/100 WBC (Bld) 0.0 % 0.0 - 2.0 % [facility] Differential cell count method Nom (Bld) AUTO DIFF % [facility] Eosinophils (Bld) [#/Vol] 0.0 10*3/uL 0.0 - 0.7 10*3/uL [facility] Eosinophils/100 WBC (Bld) 0.0 % 0.0 - 11.0 % [facility] Erythrocyte distribution width (RBC) [Ratio] 14.5 % 11.5 - 14.5 % [facility] Hematocrit (Bld) [Volume fraction] 31.8 % Low 36.0 - 48.0 % [facility] Hemoglobin (Bld) [Mass/Vol] 10.6 g/dL Low [facility] Interpretation and review of laboratory results Abnormal [facility] Lymphocytes (Bld) [#/Vol] 0.6 10*3/uL Low 1.2 - 3.4 10*3/uL [facility] Lymphocytes/100 WBC (Bld) 5.9 % Low 20.0 - 55.0 % [facility] MCH (RBC) [Entitic mass] 31.9 pg 26.0 - 35.0 PG [facility] MCHC (RBC) [Mass/Vol] 33.2 g/dL [facility] MCV (RBC) [Entitic vol] 95.9 fL [facility] Monocytes (Bld) [#/Vol] 0.8 10*3/uL High 0.0 - 0.7 10*3/uL [facility] Monocytes/100 WBC (Bld) 8.3 % 0.0 - 10.0 % [facility] Neutrophils (Bld) [#/Vol] 8.6 10*3/uL High 1.4 - 6.5 10*3/uL [facility] Neutrophils/100 WBC (Bld) 85.8 % High 37.0 - 75.0 % [facility] Platelet mean volume (Bld) [Entitic vol] 8.1 fL [facility] Platelets (Bld) [#/Vol] 228 10*3/uL 130 - 400 10*3/uL [facility] RBC (Bld) [#/Vol] 3.31 10*6/uL Low 4.0 - 5.4 10*6/uL [facility] WBC (Bld) [#/Vol] 10.0 10*3/uL 3.6 - 11.0 10*3/uL [facility] ECGOrdered By: Thom estevez on 01-13-2024 [facility] Work Phone: TROPONIN I, HIGH SENSITIVITY on 01-13-2024 Interpretation and review of laboratory results Abnormal [facility] TROPONIN I, HIGH SENSITIVITY 14 pg/mL High 0 - 12 pg/mL [facility] Comment on above: Indeterminant: >12 to 100 pg/mL female >20 to 100 pg/mL male Indicative of myocardial injury. Serial sampling is recommended, a change of greater than or equal to 20 pg/mL is indicative of acute coronary syndrome. [facility] TROPONIN I, HIGH SENSITIVITY 14 pg/mL High 0-12 [facility] Comment on above: Result Comment: Indeterminant: >12 to 100 pg/mL female >20 to 100 pg/mL male Indicative of myocardial injury. Serial sampling is recommended, a change of greater than or equal to 20 pg/mL is indicative of acute coronary syndrome. Performed By: #### U GRUPO, UMAC #### Testing performed at [address] [address] TROPONIN I, HIGH SENSITIVITY 10 pg/mL 0 - 12 pg/mL [facility] Comment on above: Indeterminant: >12 to 100 pg/mL female >20 to 100 pg/mL male Indicative of myocardial injury. Serial sampling is recommended, a change of greater than or equal to 20 pg/mL is indicative of acute coronary syndrome. [facility] TROPONIN I, HIGH SENSITIVITY 10 pg/mL Normal 0-[address] [place] [address] Comment on above: Result Comment: Indeterminant: >12 to 100 pg/mL female >20 to 100 pg/mL male Indicative of myocardial injury. Serial sampling is recommended, a change of greater than or equal to 20 pg/mL is indicative of acute coronary syndrome. Performed By: #### [facility] #### Testing performed at [address] [address] TROPONIN I, HIGH SENSITIVITY 9 pg/mL 0 - 12 pg/mL [facility] Comment on above: Indeterminant: >12 to 100 pg/mL female >20 to 100 pg/mL male Indicative of myocardial injury. Serial sampling is recommended, a change of greater than or equal to 20 pg/mL is indicative of acute coronary syndrome. [facility] TROPONIN I, HIGH SENSITIVITY 9 pg/mL Normal 0-12 [facility] Comment on above: Result Comment: Indeterminant: >12 to 100 pg/mL female >20 to 100 pg/mL male Indicative of myocardial injury. Serial sampling is recommended, a change of greater than or equal to 20 pg/mL is indicative of acute coronary syndrome. Performed By: #### U GRUPO, UMAC #### Testing performed at [address] [place] [address] XR PELVIS 1-2 VIEWSon 2023 XR PELVIS [...] Postsurgical findings of left hip arthroplasty. Normal [facility] XR Pelvis 2 Viewson 01-13-20 [...] IMPRESSION: Postsurgical findings of left hip arthroplasty. [facility] XR Pelvis 2 ViewsOrdered By: Eyad Aldridge on 01-13-2024 [facility] Work Phone: BASIC METABOLIC PANELon 12-18 Anion gap [Moles/Vol] 9 mmol/L MMOL/L [facility] Calcium [Mass/Vol] 9.1 mg/dL [facility] Chloride [Moles/Vol] 105 mmol/L [facility] Comment on above: Please note: Triglyc eride levels of 600mg/dL or higher may positively bias chloride results by approximately 2.1 mmol CO2 [Moles/Vol] 24 mmol/L [facility] Creatinine [Mass/Vol] 0.70 mg/dL [facility] GFR COMMENT Average GFR for 70+ years old = 75. [facility] Comment on above: Chronic Kidney disea se, GFR = <60. Kidney failure, GFR = <15. The GFR estimate is not adjusted for extreme body surface area or acute process, nor has it been validated for women or ethnic groups other than and . GFR/1.73 sq M.predicted among blacks MDRD (S/P/Bld) [Vol rate/Area] 103 mL/min/{1.73_m2} ml/min/1.73sq .m [facility] GFR/1.73 sq M.predicted among non-blacks MDRD (S/P/Bld) [Vol rate/Area] 85 mL/min/{1.73_m2} ml/min/1.73sq .m [facility] Glucose post fast [Mass/Vol] 179 mg/dL High [facility] Comment on above: NORMAL <100 mg/dL PREDIABETES 101-126 mg/dL DIABETES 126 mg/dL or higher Interpretation and review of laboratory results Abnormal [facility] Potassium [Moles/Vol] 4.0 mmol/L [facility] Sodium [Moles/Vol] 138 mmol/L [facility] Urea nitrogen [Mass/Vol] 16 mg/dL [facility] BMP FASTINGon 01-12-2024 Anion gap [Moles/Vol] 9 mmol/L Normal [facility] Comment on above: Performed By: #### U [facility], UMAC #### Testing performed at [address] [address] Calcium [Mass/Vol] 9.1 mg/dL Normal 8.4-10.2 [facility] Comment on above: Performed By: #### U [facility], UMAC #### Testing performed at [address] [address] Chloride [Moles/Vol] 105 mmol/L Normal 98-107 [facility] Comment on above: Result Comment: Plea se note: Triglyceride levels of 600mg/dL or higher may positively bias chloride results by approximately 2.1 mmol Performed By: #### U [facility], UMAC #### Testing performed at [address] [address] CO2 [Moles/Vol] 24 mmol/L Normal 22-30 [facility] Comment on above: Performed By: #### U [facility], UMAC #### Testing performed at [address] [address] Creatinine [Mass/Vol] 0.70 mg/dL Normal 0.70-1.20 [facility] Comment on above: Performed By: #### U [facility], UMAC #### Testing performed at [address] [address] EST. GFR, 103 ml/min/1.73sq.m [facility] Comment on above: Performed By: #### U [facility], UMAC #### Testing performed at [address] [address] EST. GFR,Non 85 ml/min/1.73sq.m [facility] Comment on above: Performed By: #### U [facility], UMAC #### Testing performed at [address] [address] GFR Information Average GFR for 70+ years old = 75. Normal [facility] Comment on above: Result Comment: Hospital Admissions Clerk aviva Kidney disease, GFR = <60. Kidney failure, GFR = <15. The GFR estimate is not adjusted for extreme body surface area or acute process, nor has it been validated for women or ethnic groups other than and . Performed By: #### U [facility], U[facility] #### Testing performed at [address] [address] Glucose [Mass/Vol] 179 mg/dL High 70-100 [facility] Comment on above: Result Comment: NORMAL <100 mg/dL PREDIABETES 101-126 mg/dL DIABETES 126 mg/dL or higher Performed By: #### U [facility], U[facility] #### Testing performed at [address] [address] Potassium [Moles/Vol] 4.0 mmol/L Normal 3.5-5.1 [facility] Comment on above: Performed By: #### U [facility], [facility] #### Testing performed at [address] [address] Sodium [Moles/Vol] 138 mmol/L Normal 137-145 [facility] Comment on above: Performed By: #### U [facility], UMAC #### Testing performed at [address] [address] Urea nitrogen [Mass/Vol] 16 mg/dL Normal 7-20 [facility] Comment on above: Performed By: #### U [facility], U[facility] #### Testing performed at [address] [address] CBCon 01-12-2024 ABSOLUTE BAS 0.0 10*3/uL Normal 0.0-0.2 [facility] Comment on above: Performed By: #### U [facility], UMAC #### Testing performed at [address] [address] ABSOLUTE EOS 0.0 10*3/uL Normal 0.0-0.7 [facility] Comment on above: Performed By: #### U [facility], UMAC #### Testing performed at [address] [address] ABSOLUTE NEUTROPHIL COUNT 9.4 10*3/uL High 1.4-6.5 [facility] Comment on above: Performed By: #### U [facility], [facility] #### Testing performed at [address] [address] Basophils/100 WBC (Bld) 0.1 % Normal 0.0-2.0 [facility] Comment on above: Performed By: #### U [facility], [facility] #### Testing performed at [address] [address] DTYPE AUTO DIFF Normal [facility] Comment on above: Performed By: #### U [facility], [facility] #### Testing performed at [address] [address] Eosinophils/100 WBC (Bld) 0.0 % Normal 0.0-11.0 [facility] Comment on above: Performed By: #### U [facility], [facility] #### Testing performed at [address] [address] Lymphocytes (Bld) [#/Vol] 0.6 10*3/uL Low 1.2-3.4 [facility] Comment on above: Performed By: #### U [facility], [facility] #### Testing performed at [address] [address] Lymphocytes/100 WBC (Bld) 5.9 % Low 20.0-55.0 [facility] Comment on above: Performed By: #### [facility], [facility] #### Testing performed at [address] [address] Monocytes (Bld) [#/Vol] 0.5 10*3/uL Normal 0.0-0.7 [facility] Comment on above: Performed By: #### U [facility], U[facility] #### Testing performed at [address] [address] Monocytes/100 WBC (Bld) 4.5 % Normal 0.0-10.0 [facility] Comment on above: Performed By: #### U [facility], U[facility] #### Testing performed at [address] [address] Neutrophils/100 WBC (Bld) 89.5 % High 37.0-75.0 [facility] Comment on above: Performed By: #### U [facility], [facility] #### Testing performed at [address] [address] Erythrocyte distribution width (RBC) [Ratio] 14.3 % Normal 11.5-14.5 [facility] Comment on above: Performed By: #### U [facility], [facility] #### Testing performed at [address] [address] Hematocrit (Bld) [Volume fraction] 33.3 % Low 36.0-48.0 [facility] Comment on above: Performed By: #### U [facility], [facility] #### Testing performed at [address] [address] Hemoglobin (Bld) [Mass/Vol] 10.9 g/dL Low 12.0-16.0 [facility] Comment on above: Performed By: #### U [facility], [facility] #### Testing performed at [address] [address] MCH (RBC) [Entitic mass] 31.4 pg Normal 26.0-35.0 [facility] Comment on above: Performed By: #### U [facility], UMAC #### Testing performed at [address] [address] MCHC (RBC) [Mass/Vol] 32.8 g/dL Normal 27.0-37.0 [facility] Comment on above: Performed By: #### U [facility], U[facility] #### Testing performed at [address] [address] MCV (RBC) [Entitic vol] 95.7 fL Normal 80.0-100.0 [facility] Comment on above: Performed By: #### U [facility], UMAC #### Testing performed at [address] [address] Platelet mean volume (Bld) [Entitic vol] 8.2 fL Normal 7.4-11.0 [facility] Comment on above: Performed By: #### U [facility], UMAC #### Testing performed at [address] [address] Platelets (Bld) [#/Vol] 247 10*3/uL Normal 130-400 [facility] Comment on above: Performed By: #### U [facility], U[facility] #### Testing performed at [address] [address] RBC (Bld) [#/Vol] 3.48 10*6/uL Low 4.0-5.4 [facility] Comment on above: Performed By: #### U [facility], U[facility] #### Testing performed at [address] [address] WBC (Bld) [#/Vol] 10.5 10*3/uL Normal 3.6-11.0 [facility] Comment on above: Performed By: #### U [facility], UMAC #### Testing performed at [address] [address] CBC, EDIF, PLATELETon 2023 ABSOLUTE BASOPHIL COUNT 0.0 10*3/uL 0.0 - 0.2 10*3/uL [facility] Basophils/100 WBC (Bld) 0.1 % 0.0 - 2.0 % [facility] Differential cell count method Nom (Bld) AUTO DIFF % [facility] Eosinophils (Bld) [#/Vol] 0.0 10*3/uL 0.0 - 0.7 10*3/uL [facility] Eosinophils/100 WBC (Bld) 0.0 % 0.0 - 11.0 % [facility] Erythrocyte distribution width (RBC) [Ratio] 14.3 % 11.5 - 14.5 % [facility] Hematocrit (Bld) [Volume fraction] 33.3 % Low 36.0 - 48.0 % [facility] Hemoglobin (Bld) [Mass/Vol] 10.9 g/dL Low [facility] Interpretation and review of laboratory results Abnormal [facility] Lymphocytes (Bld) [#/Vol] 0.6 10*3/uL Low 1.2 - 3.4 10*3/uL [facility] Lymphocytes/100 WBC (Bld) 5.9 % Low 20.0 - 55.0 % [facility] MCH (RBC) [Entitic mass] 31.4 pg 26.0 - 35.0 PG [facility] MCHC (RBC) [Mass/Vol] 32.8 g/dL [facility] MCV (RBC) [Entitic vol] 95.7 fL [facility] Monocytes (Bld) [#/Vol] 0.5 10*3/uL 0.0 - 0.7 10*3/uL [facility] Monocytes/100 WBC (Bld) 4.5 % 0.0 - 10.0 % [facility] Neutrophils (Bld) [#/Vol] 9.4 10*3/uL High 1.4 - 6.5 10*3/uL [facility] Neutrophils/100 WBC (Bld) 89.5 % High 37.0 - 75.0 % [facility] Platelet mean volume (Bld) [Entitic vol] 8.2 fL [facility] Platelets (Bld) [#/Vol] 247 10*3/uL 130 - 400 10*3/uL [facility] RBC (Bld) [#/Vol] 3.48 10*6/uL Low 4.0 - 5.4 10*6/uL [facility] WBC (Bld) [#/Vol] 10.5 10*3/uL 3.6 - 11.0 10*3/uL [facility] GENERAL PROCEDUREOrdered By: Vj Alvarez on 01-11-2024 [facility] Work Phone: Radiology Study observation (narrative) [facility] Work Phone: PROTIMEon 01-11-2024 INR Coag (PPP) [Relative time] 1.09 {INR} Normal 0.85-1.10 [facility] Comment on above: Result Comment: 2.0-3.0 THERAPEUTIC RANGE 2.5-3.5 MECHANICAL VALVE RANGE Performed By: #### P T #### Testing performed at [address] [address] PT Coag (PPP) [Time] 14.2 s Normal 11.8-14.4 [facility] Comment on above: Performed By: #### P T #### Testing performed at [address] [address] PROTIME-INRon 01-11-2024 INR Coag (PPP) [Relative time] 1.09 {INR} 0.85 - 1.10 [facility] Comment on above: 2.0-3.0 THERAPEUTIC RANGE 2.5-3.5 MECHANICAL VALVE RANGE PT Coag (PPP) [Time] 14.2 s [facility] REPEAT ABO/RHon 01-11-2024 REPEAT ABO/RH Positive Normal [facility] Comment on above: Performed By: #### U [facility], UMAC #### Testing performed at [address] [address] REPEAT ABO/RH (D) TYPINGon 0 01-11-2024 ABO and Rh group Nom (Bld ) Positive [facility] XR Pelvis 2 Viewson 01-11-20 Radiology Study observation (narrative) [facility] 36on 01-10-2024 36 Regarding echo from 12/29/2023: MD Amairani Corrales MA Patient echo is overall normal. Therefore she can proceed with surgery from cardiac point of view with necessary anesthesia. She is considered to be at low risk for perioperative cardiac events. Thank you Dr Kim Suarez faxed to Dr. Heredia's office. Normal [facility] Office Visiton 12-22-2023 Follow-up visit [id number] Cuate Goodman 1940 F Date Provider Department Center 12/22/2023 [id number]-WJQUENCEFERINO QUIÑONEZ BH YUNIOR [facility] Family History Problem Relation Age of Onset Lung cancer Mother Heart disease Father Other Father Prostate cancer Father Family Status - Relation Status Age at Mother Father Level of Service:284[address] [place] OFFICE/OUTPATIENT NEW MODERATE MDM 45 MINUTES Normal [facility] URINE CULTUREon 12-18-2023 Bacteria identified Cx Nom (U) SPECIMEN DESCRIPTION URINE CLEAN CATCH UA DIPSTICK LEUKOCYTE POSITIVE * Result Note: NITRITE POSITIVE * COLONY COUNT >100,000 C/C/ML CULTURE KLEBSIELLA PNEUMONIAE * Result Note: Testing performed at [place] [address] * REPORT STATUS 12/18/2023 * Result Note: [...] CEFEPIME <=1 SUSCEPTIBLE CEFTAZIDIME <=1 SUSCEPTIBLE Normal [facility] Comment on above: Performed By: #### A URNC #### Testing performed at [facility] [address] [place] [address] Testing performed at [facility] [address] [place] [address] CBCon 12-16-2023 ABSOLUTE BAS 0.1 10*3/uL Normal 0.0-0.2 [facility] Comment on above: Performed By: #### U [facility], U[facility] #### Testing performed at [address] [place] [address] ABSOLUTE EOS 0.1 10*3/uL Normal 0.0-0.7 [facility] Comment on above: Performed By: #### U [facility], U[facility] #### Testing performed at [address] [place] [address] ABSOLUTE NEUTROPHIL COUNT 3.5 10*3/uL Normal 1.4-6.5 [facility] Comment on above: Performed By: #### U [facility], U[facility] #### Testing performed at [address] [place] [address] Basophils/100 WBC (Bld) 0.9 % Normal 0.0-2.0 [facility] Comment on above: Performed By: #### U [facility], [facility] #### Testing performed at [address] [place] [address] DTYPE AUTO DIFF Normal [facility] Comment on above: Performed By: #### U [facility], U[facility] #### Testing performed at [address] [place] [address] Eosinophils/100 WBC (Bld) 1.8 % Normal 0.0-11.0 [facility] Comment on above: Performed By: #### U [facility], [facility] #### Testing performed at [address] [address] Lymphocytes (Bld) [#/Vol] 1.4 10*3/uL Normal 1.2-3.4 [facility] Comment on above: Performed By: #### U [facility], [facility] #### Testing performed at [address] [place] [address] Lymphocytes/100 WBC (Bld) 25.0 % Normal 20.0-55.0 [facility] Comment on above: Performed By: #### U [facility], [facility] #### Testing performed at [address] [place] [address] Monocytes (Bld) [#/Vol] 0.5 10*3/uL Normal 0.0-0.7 [facility] Comment on above: Performed By: #### U [facility], [facility] #### Testing performed at [address] [place] [address] Monocytes/100 WBC (Bld) 9.1 % Normal 0.0-10.0 [facility] Comment on above: Performed By: #### U [facility], [facility] #### Testing performed at [address] [place] [address] Neutrophils/100 WBC (Bld) 63.2 % Normal 37.0-75.0 [facility] Comment on above: Performed By: #### U [facility], [facility] #### Testing performed at [address] [place] [address] Erythrocyte distribution width (RBC) [Ratio] 14.9 % High 11.5-14.5 [facility] Comment on above: Performed By: #### U [facility], [facility] #### Testing performed at [address] [place] [address] Hematocrit (Bld) [Volume fraction] 39.2 % Normal 36.0-48.0 [facility] Comment on above: Performed By: #### U [facility], [facility] #### Testing performed at [address] [place] [address] Hemoglobin (Bld) [Mass/Vol] 12.8 g/dL Normal 12.0-16.0 [facility] Comment on above: Performed By: #### U [facility], [facility] #### Testing performed at [address] [place] [address] MCH (RBC) [Entitic mass] 31.1 pg Normal 26.0-35.0 [facility] Comment on above: Performed By: #### U [facility], [facility] #### Testing performed at [address] [place] [address] MCHC (RBC) [Mass/Vol] 32.6 g/dL Normal 27.0-37.0 [facility] Comment on above: Performed By: #### U [facility], U[facility] #### Testing performed at [address] [place] [address] MCV (RBC) [Entitic vol] 95.4 fL Normal 80.0-100.0 [facility] Comment on above: Performed By: #### U [facility], U[facility] #### Testing performed [place] [address] [place] [address] Platelet mean volume (Bld) [Entitic vol] 8.8 fL Normal 7.4-11.0 [facility] Comment on above: Performed By: #### U [facility], U[facility] #### Testing performed [place] [address] [place] [address] Platelets (Bld) [#/Vol] 298 10*3/uL Normal 130-400 [facility] Comment on above: Performed By: #### U [facility], [facility] #### Testing performed at [address] [place] [address] RBC (Bld) [#/Vol] 4.11 10*6/uL Normal 4.0-5.4 [facility] Comment on above: Performed By: #### U [facility], [facility] #### Testing performed at [address] [address] WBC (Bld) [#/Vol] 5.6 10*3/uL Normal 3.6-11.0 [facility] Comment on above: Performed By: #### U [facility], U[facility] #### Testing performed at [address] [place] [address] CMP FASTINGon 12-16-2023 A:G RATIO 1.3 RATIO Normal [facility] Comment on above: Performed By: #### U [facility], [facility] #### Testing performed at [address] [place] [address] ALBUMIN 4.0 G/dl Normal 3.5-5.0 [facility] Comment on above: Performed By: #### U [facility], [facility] #### Testing performed at [address] [place] [address] ALP [Catalytic activity/Vol] 89 U/L Normal 38-126 [facility] Comment on above: Performed By: #### U [facility], [facility] #### Testing performed at [address] [place] [address] ALT [Catalytic activity/Vol] 16 U/L Normal <35 [facility] Comment on above: Performed By: #### U [facility], [facility] #### Testing performed at [address] [place] [address] AST [Catalytic activity/Vol] 25 U/L Normal 14-36 [facility] Comment on above: Performed By: #### U [facility], U[facility] #### Testing performed at [address] [address] Bilirubin [Mass/Vol] 0.3 mg/dL Normal 0.2-1.3 [facility] Comment on above: Performed By: #### U [facility], UMAC #### Testing performed at [address] [address] Calcium [Mass/Vol] 9.9 mg/dL Normal 8.4-10.2 [facility] Comment on above: Performed By: #### U [facility], U[facility] #### Testing performed at [address] [address] Chloride [Moles/Vol] 107 mmol/L Normal 98-107 [facility] Comment on above: Result Comment: Shonda matthews note: Triglyceride levels of 600mg/dL or higher may positively bias chloride results by approximately 2.1 mmol Performed By: #### U [facility], U[facility] #### Testing performed at [address] [address] CO2 [Moles/Vol] 28 mmol/L Normal 22-30 [facility] Comment on above: Performed By: #### U [facility], UMAC #### Testing performed at [address] [address] Creatinine [Mass/Vol] 0.80 mg/dL Normal 0.70-1.20 [facility] Comment on above: Performed By: #### U [facility], UMAC #### Testing performed at [address] [address] EST. GFR, 89 ml/min/1.73sq.m [facility] Comment on above: Performed By: #### U [facility], UMAC #### Testing performed at [address] [place] [address] EST. GFR,Non 73 ml/min/1.73sq.m [facility] Comment on above: Performed By: #### U [facility], U[facility] #### Testing performed at [address] [place] [address] GFR Information Average GFR for 70+ years old = 75. Normal [facility] Comment on above: Result Comment: Hospital Admissions Clerk aviva Kidney disease, GFR = <60. Kidney failure, GFR = <15. The GFR estimate is not adjusted for extreme body surface area or acute process, nor has it been validated for women or ethnic groups other than and . Performed By: #### U [facility], U[facility] #### Testing performed at [address] [address] Glucose [Mass/Vol] 115 mg/dL High 70-100 [facility] Comment on above: Result Comment: NORMAL <100 mg/dL PREDIABETES 101-126 mg/dL DIABETES 126 mg/dL or higher Performed By: #### U [facility], UMAC #### Testing performed at [address] [address] Potassium [Moles/Vol] 4.0 mmol/L Normal 3.5-5.1 [facility] Comment on above: Performed By: #### U [facility], UMAC #### Testing performed at [address] [address] Protein [Mass/Vol] 7.2 g/dL Normal 6.3-8.2 [facility] Comment on above: Performed By: #### U [facility], U[facility] #### Testing performed at [address] [address] Sodium [Moles/Vol] 140 mmol/L Normal 137-145 [facility] Comment on above: Performed By: #### U [facility], UMAC #### Testing performed at [address] [address] Urea nitrogen [Mass/Vol] 19 mg/dL Normal 7-20 [facility] Comment on above: Performed By: #### U [facility], UMAC #### Testing performed at [address] [address] HEMOGLOBIN A1Con 12-16-2023 Glucose [Mass/Vol] 117 mg/dL Normal [facility] Comment on above: Performed By: #### H A1CT #### Testing performed at [address] [address] HbA1c (Bld) [Mass fraction] 5.7 % Normal 0-6 [facility] Comment on above: Result Comment: NORMAL <5.7% PREDIABETES 5.7-6.4% DIABETES 6.5% OR HIGHER Performed By: #### H A1CT #### Testing performed at [address] [address] MRSA SCREENon 12-16-2023 MRSA DNA SMILEY+probe Ql (Unsp spec) Negative Normal NEGATIVE [facility] Comment on above: Performed By: #### M RSAST #### Testing performed at [address] [address] STAPH AUREUS SCREEN Positive Abnormal NEGATIVE [facility] Comment on above: Result Comment: TEST ING PERFORMED BY PCR Performed By: #### M RSAST #### Testing performed at [address] [address] PROTIMEon 12-16-2023 INR Coag (PPP) [Relative time] 1.47 {INR} High 0.85-1.10 [facility] Comment on above: Result Comment: 2.0-3.0 THERAPEUTIC RANGE 2.5-3.5 MECHANICAL VALVE RANGE Performed By: #### U [facility], U[facility] #### Testing performed at [address] [address] PT Coag (PPP) [Time] 17.9 s High 11.8-14.4 [facility] Comment on above: Performed By: #### U [facility], UMAC #### Testing performed at [address] [address] TYPE AND SCREEN CROSSMATCH C ONVERTIBLEon 12-16-2023 TYPE AND SCREEN CROSSMATCH CONVERTIBLE WORKUP EXPIRES 01/13/2024,2359 ABO/RH(D) O POSITIVE ANTIBODY SCREEN NEGATIVE ARM BAND NUMBER [id number] Normal [facility] Comment on above: Performed By: #### U [facility], UMAC #### Testing performed at [address] [address] URINE MACROSCOPICon 12-16-19 24 Bilirubin Ql (U) Negative Normal NEGATIVE [facility] Comment on above: Performed By: #### U [facility], UMAC #### Testing performed at [address] [address] Clarity (U) SLIGHTLY CLOUDY Abnormal CLEAR [facility] Comment on above: Performed By: #### U [facility], UMAC #### Testing performed at [address] [address] Color (U) YELLOW Normal YELLOW [facility] Comment on above: Performed By: #### U [facility], UMAC #### Testing performed at [address] [address] Glucose Ql (U) Negative Normal NEGATIVE [facility] Comment on above: Performed By: #### U [facility], UMAC #### Testing performed at [address] [address] pH (U) 5.5 [pH] Normal 5.0-7.0 [facility] Comment on above: Performed By: #### U [facility], UMAC #### Testing performed at [address] [address] Protein (U) [Mass/Vol] 30 mg/dL Abnormal NEGATIVE [facility] Comment on above: Performed By: #### U [facility], UMAC #### Testing performed at [address] [place] [address] URINE HEMOGLOBIN MODERATE Abnormal NEGATIVE [facility] Comment on above: Performed By: #### U [facility], UMAC #### Testing performed at [address] [place] [address] URINE KETONE Negative Normal NEGATIVE [facility] Comment on above: Performed By: #### U [facility], UMAC #### Testing performed at [address] [address] URINE LEUKOTEST SMALL Abnormal NEGATIVE [facility] Comment on above: Performed By: #### U [facility], UMAC #### Testing performed at [address] [address] URINE NITRATES Positive Abnormal NEGATIVE [facility] Comment on above: Performed By: #### U GRUPO, UMAC #### Testing performed at [address] [address] URINE SPEC GRAVITY 1.025 Normal 1.010-1.025 [facility] Comment on above: Performed By: #### U GRUPO, UMAC #### Testing performed at [address] [address] Urobilinogen Qn (U) 0.2 {Monique'U}/dL Normal 0.2-1.0 [facility] Comment on above: Performed By: #### U GRUPO, UMAC #### Testing performed at [address] [address] URINE MICROSCOPICon 12-16-19 24 BACTERIA 3+ Abnormal NEGATIVE [facility] Comment on above: Performed By: #### U GRUPO, UMAC #### Testing performed at [address] [address] CASTS NONE Normal [facility]3] Comment on above: Performed By: #### U GRUPO, UMAC #### Testing performed at [address] [address] CRYSTAL NONE Normal [facility]3] Comment on above: Performed By: #### U GRUPO, UMAC #### Testing performed at [address] [address] Epithelial cells LM Ql (Urine sed) 1 TO 5 Normal [facility] Comment on above: Performed By: #### U GRUPO, UMAC #### Testing performed at [address] [address] Mucus Ql (Urine sed) Negative Normal NEGATIVE [facility] Comment on above: Performed By: #### U GRUPO, UMAC #### Testing performed at [address] [address] URINE COMMENT REFLEX CULTURE PER ESTABLISHED CRITERIA. Normal [facility] Comment on above: Performed By: #### U GRUPO, UMAC #### Testing performed at [address] [address] URINE RBC'S 1 TO 5 Normal NEGATIVE [facility] Comment on above: Performed By: #### U GRUPO, UMAC #### Testing performed at [address] [address] URINE WBC'S TOO NUMEROUS TO COUNT Abnormal NEGATIVE [facility] Comment on above: Performed By: #### U GRUPO, UMAC #### Testing performed at [address] [address] CBC AND AUTO DIFFon 09-18-19 24 ABSOLUTE BASOPHIL 0.1 X10E9/L Normal 0.0-0.2 [facility] Comment on above: Performed By: #### C BCA, CMP, 45879-5, 70939-3, 3084-1, 3016- 3, 3024-7, 3051-0, 2284-8, 2132-03 #### [facility] ([id number]) [address], [address] [place] [address] ABSOLUTE NEUTROPHIL 4.0 X10E9/L Normal 1.5-6.6 [facility] Comment on above: Performed By: #### C BCA, CMP, 98075-2, 30549-9, 3084-1, 3016- 3, 3024-7, 3051-0, 2284-8, 2132-03 #### [facility] ([id number]) [address], [address] [place] [address] Basophils/100 WBC (Bld) 1.0 % [facility] Comment on above: Performed By: #### C BCA, CMP, 16342-4, 78346-8, 3084-1, 3016- 3, 3024-7, 3051-0, 228-8, 2132-03 #### [facility] ([id number]) [address], [address] [place] [address] Eosinophils (Bld) [#/Vol] 0.1 10*3/uL Normal 0.0-0.4 [facility] Comment on above: Performed By: #### C BCA, CMP, 92746-2, 90933-1, 3084-1, 3016- 3, 3024-7, 3051-0, 2284-8, 2132-03 #### [facility] ([id number]) [address], [address] [place] [address] Eosinophils/100 WBC (Bld) 1.8 % Normal [facility] Comment on above: Performed By: #### C BCA, CMP, 73684-4, 93897-7, 3084-1, 3016- 3, 3024-7, 3051-0, 2284-8, 2132-03 #### [facility] ([id number]) [address], [address] [place] [address] Erythrocyte distribution width (RBC) [Ratio] 15.2 % High 11.5-15.0 [facility] Comment on above: Performed By: #### C BCA, CMP, 97850-3, 32945-0, 3084-1, 3016- 3, 3024-7, 3051-0, 2284-8, 2132-03 #### [facility] ([id number]) [address], [address] [place] [address] Hematocrit (Bld) [Volume fraction] 36.9 % Normal 35-47 [facility] Comment on above: Performed By: #### C BCA, CMP, 42015-5, 07436-4, 3084-1, 3016- 3, 3024-7, 3051-0, 2284-8, 2132-03 #### [facility] ([id number]) [address], [address] [place] [address] Hemoglobin (Bld) [Mass/Vol] 12.3 g/dL Normal 11.7-15.5 [facility] Comment on above: Performed By: #### C BCA, CMP, 64942-7, 54567-4, 3084-1, 3016- 3, 3024-7, 3051-0, 2284-8, 2132-03 #### [facility] ([id number]) [address], [address] [place] [address] Lymphocytes (Bld) [#/Vol] 1.5 10*3/uL Normal 1.0-3.5 [facility] Comment on above: Performed By: #### C BCA, CMP, 04439-9, 44711-8, 3084-1, 3016- 3, 3024-7, 3051-0, 2284-8, 2132-03 #### [facility] ([id number]) [address], [address] [place] [address] Lymphocytes/100 WBC (Bld) 23.4 % Normal [facility] Comment on above: Performed By: #### C BCA, CMP, 29532-2, 54061-9, 3084-1, 3016- 3, 3024-7, 3051-0, 2284-8, 2132-03 #### [facility] ([id number]) [address], [address] [place] [address] MCH (RBC) [Entitic mass] 30.8 pg Normal 27-34 [facility] Comment on above: Performed By: #### C BCA, CMP, 82225-1, 16173-4, 3084-1, 3016- 3, 3024-7, 3051-0, 2284-8, 2132-03 #### [facility] ([id number]) [address], [address] [place] [address] MCHC (RBC) [Mass/Vol] 33.3 g/dL Normal 32-36 [facility] Comment on above: Performed By: #### C BCA, CMP, 73248-5, 31038-3, 3084-1, 3016- 3, 3024-7, 3051-0, 2284-8, 2132-03 #### [facility] ([id number]) [address], [address] [place] [address] MCV (RBC) [Entitic vol] 93 fL Normal 80-100 [facility] Comment on above: Performed By: #### C BCA, CMP, 78728-1, 45450-2, 3084-1, 3016- 3, 3024-7, 3051-0, 2284-8, 2132-03 #### [facility] ([id number]) [address], [address] [place] [address] Monocytes (Bld) [#/Vol] 0.6 10*3/uL Normal 0-0.9 [facility] Comment on above: Performed By: #### C BCA, CMP, 92884-2, 00334-5, 3084-1, 3016- 3, 3024-7, 3051-0, 2284-8, 2132-03 #### [facility] ([id number]) [address], [address] [place] [address] Monocytes/100 WBC (Bld) 9.2 % [facility] Comment on above: Performed By: #### C BCA, CMP, 35139-7, 86757-4, 3084-1, 3016- 3, 3024-7, 3051-0, 2284-8, 2132-03 #### [facility] ([id number]) [address], [address] [place] [address] Neutrophils/100 WBC (Bld) 64.6 % Normal [facility] Comment on above: Performed By: #### C BCA, CMP, 12901-6, 73608-5, 3084-1, 3016- 3, 3024-7, 3051-0, 2284-8, 2132-03 #### [facility] ([id number]) [address], [address] [place] [address] Platelet mean volume (Bld) [Entitic vol] 8.0 fL Normal 7-12 [facility] Comment on above: Performed By: #### C BCA, CMP, 62858-0, 48454-9, 3084-1, 3016- 3, 3024-7, 3051-0, 2284-8, 2132-03 #### [facility] ([id number]) [address], [address] [place] [address] Platelets (Bld) [#/Vol] 492 10*3/uL High 150-450 [facility] Comment on above: Performed By: #### C BCA, CMP, 72857-2, 62538-2, 3084-1, 3016- 3, 3024-7, 3051-0, 2284-8, 9 #### [facility] ([id number]) [address], [address] [place] [address] RBC COUNT 3.99 X10E12/L Normal 3.80-5.20 [facility] Comment on above: Performed By: #### C BCA, CMP, 54979-5, 55931-2, 3084-1, 3016- 3, 3024-7, 3051-0, 2284-8, 2132-03 #### [facility] ([id number]) [address], [address] [place] [address] WBC (Bld) [#/Vol] 6.2 10*3/uL Normal 4.0-11.0 [facility] Comment on above: Performed By: #### C BCA, CMP, 82228-2, 04136-2, 3084-1, 3016- 3, 3024-7, 3051-0, 2284-8, 2132-03 #### [facility] ([id number]) [address], [address] [place] [address] COMPREHENSIVE METABOLIC PANE Jarad 09-18-2023 Albumin [Mass/Vol] 3.8 g/dL Normal 3.2-5.3 [facility] Comment on above: Performed By: #### C BCA, CMP, 51367-0, 68399-7, 3084-1, 3016- 3, 3024-7, 3051-0, 2284-8, 2132-03 #### [facility] ([id number]) [address], [address] [place] [address] ALP [Catalytic activity/Vol] 92 U/L Normal 39-130 [facility] Comment on above: Performed By: #### C BCA, CMP, 43028-7, 08009-4, 3084-1, 3016- 3, 3024-7, 3051-0, 2284-8, 2131-9 #### [facility] ([id number]) [address], [address] [place] [address] ALT [Catalytic activity/Vol] 9 U/L Normal 0-31 [facility] Comment on above: Performed By: #### C BCA, CMP, 45960-1, 06505-6, 3084-1, 3016- 3, 3024-7, 3051-0, 2284-8, 2131-9 #### [facility] ([id number]) [address], [address] [place] [address] Anion gap [Moles/Vol] 9 mmol/L Normal 5-15 [facility] Comment on above: Performed By: #### C BCA, CMP, 32348-9, 49391-4, 3084-1, 3016- 3, 3024-7, 3051-0, 2284-8, 2132-03 #### [facility] ([id number]) [address], [address] [place] [address] AST [Catalytic activity/Vol] 16 U/L Normal 0-41 [facility] Comment on above: Performed By: #### C BCA, CMP, 17258-7, 34463-8, 3084-1, 3016- 3, 3024-7, 3051-0, 2284-8, 2131-9 #### [facility] ([id number]) [address], [address] [place] [address] Bilirubin [Mass/Vol] 0.5 mg/dL Normal 0.3-1.2 [facility] Comment on above: Performed By: #### C BCA, CMP, 41526-9, 01776-2, 3084-1, 3016- 3, 3024-7, 3051-0, 2284-8, 2131-9 #### [facility] ([id number]) [address], [address] [place] [address] Calcium [Mass/Vol] 9.9 mg/dL Normal 8.5-10.5 [facility] Comment on above: Performed By: #### C BCA, CMP, 96937-4, 36713-1, 3084-1, 3016- 3, 3024-7, 3051-0, 2284-8, 2132-03 #### [facility] ([id number]) [address], [address] [place] [address] Chloride [Moles/Vol] 102 mmol/L Normal 98-109 [facility] Comment on above: Performed By: #### C BCA, CMP, 10674-5, 42152-6, 3084-1, 3016- 3, 3024-7, 3051-0, 2284-8, 2132-03 #### [facility] ([id number]) [address], [address] [place] [address] CO2 [Moles/Vol] 27 mmol/L Normal 22-32 [facility] Comment on above: Performed By: #### C BCA, CMP, 77898-7, 71966-1, 3084-1, 3016- 3, 3024-7, 3051-0, 228-8, 2132-03 #### [facility] ([id number]) [address], [address] [place] [address] Creatinine [Mass/Vol] 0.75 mg/dL Normal 0.40-1.00 [facility] Comment on above: Result Comment: METH OD TRACEABLE TO IDMS STANDARD Performed By: #### C BCA, CMP, 19334-4, 22629-5, 3084-1, 3016-3, 3024-7, 3051-0, 2284-8, 2132-03 #### [facility] ([id number]) [address], [address] [place] [address] GFR/1.73 sq M.predicted among non-blacks MDRD (S/P/Bld) [Vol rate/Area] 80 mL/min/{1.73_m2} Normal >59 [facility] Comment on above: Result Comment: Reported eGFR is based on the CKD-EPI 2020 equation that does not use a race coefficient. Performed By: #### C BCA, CMP, 81312-3, 78589-4, 3084-1, 3016-3, 3024-7, 3051-0, 2284-8, 9 #### [facility] ([id number]) [address], [address] [place] [address] Glucose [Mass/Vol] 98 mg/dL Normal 65-99 [facility] Comment on above: Performed By: #### C BCA, CMP, 75353-9, 29943-0, 3084-1, 3016- 3, 3024-7, 3051-0, 2284-8, 2132-03 #### [facility] ([id number]) [address], [address] [place] [address] Potassium [Moles/Vol] 4.4 mmol/L Normal 3.5-5.0 [facility] Comment on above: Performed By: #### C BCA, CMP, 37932-1, 44217-5, 3084-1, 3016- 3, 3024-7, 3051-0, 228-8, 2132-03 #### [facility] ([id number]) [address], [address] [place] [address] Protein [Mass/Vol] 7.5 g/dL Normal 6.0-8.0 [facility] Comment on above: Performed By: #### C BCA, CMP, 74409-4, 65138-6, 3084-1, 3016- 3, 3024-7, 3051-0, 2284-8, 2132-03 #### [facility] ([id number]) [address], [address] [place] [address] Sodium [Moles/Vol] 138 mmol/L Normal 134-146 [facility] Comment on above: Performed By: #### C BCA, CMP, 03861-2, 36001-8, 3084-1, 3016- 3, 3024-7, 3051-0, 2284-8, 2132-03 #### [facility] ([id number]) [address], [address] [place] [address] Urea nitrogen [Mass/Vol] 21 mg/dL Normal 5-27 [facility] Comment on above: Performed By: #### C BCA, CMP, 89941-3, 90892-1, 3084-1, 3016- 3, 3024-7, 3051-0, 2284-8, 2132-03 #### [facility] ([id number]) [address], [address] [place] [address] FREE T3on 09-18-2023 Free T3 [Mass/Vol] 3.02 pg/mL Normal 2.50-3.90 [facility] Comment on above: Performed By: #### C BCA, CMP, 65466-0, 98731-6, 3084-1, 3016- 3, 3024-7, 3051-0, 2284-8, 2132-03 #### [facility] ([id number]) [address] [facility], [address] [place] [address] FREE T4on 09-18-2023 Free T4 [Mass/Vol] 1.24 ng/dL Normal 0.61-1.60 [facility] Comment on above: Performed By: #### C BCA, CMP, 12736-3, 08474-0, 3084-1, 3016- 3, 3024-7, 3051-0, 2284-8, 2132-03 #### [facility] ([id number]) [address], [address] [place] [address] Folate [Mass/Vol]on 09-18-19 24 FOLIC ACID 16.5 ng/mL Normal >5.8 [facility] Comment on above: Result Comment: NEW REFERENCE RANGE Performed By: #### C BCA, CMP, 48590-2, 52142-5, 3084-1, 3016-3, 3024-7, 3051-0, 2284-8, 2132-03 #### [facility] ([id number]) [address] [place] [address], [address] [place] [address] HGB A1C (GLYCO-HGB)on 2023 Glucose [Mass/Vol] 120 mg/dL Normal [facility] Comment on above: Performed By: #### C BCA, CMP, 56901-4, 88636-1, 3084-1, 3016- 3, 3024-7, 3051-0, 2284-8, 2132-03 #### [facility] ([id number]) [address] [place] [address], [address] [place] [address] HbA1c (Bld) [Mass fraction] 5.8 % High 4.4-5.6 [facility] Comment on above: Result Comment: NOTE ADA Guidelines Result HgbA1c Normal : less than 5.7 % Prediabetes : 5.7 % to 6.4 % Diabetes : > 6.4 % Use with caution in patients with abnormal hemoglobin variants as the half-life of red blood cells and in vivo glycation rates are affected. Performed By: #### C BCA, CMP, 07927-1, 44837-9, 3084-1, 3016-3, 3024-7, 3051-0, 2283-8, 2132-03 #### [facility] ([id number]) [address] [place] [address], [address] [place] [address] Lipid 1996 panelon 4 Cholesterol [Mass/Vol] 157 mg/dL Normal 150-200 [facility] Comment on above: Performed By: #### C BCA, CMP, 67030-6, 16452-1, 3084-1, 3016- 3, 3024-7, 3051-0, 2284-8, 2132-03 #### [facility] ([id number]) [address] [place] [address], [address] [place] [address] Cholesterol in HDL [Mass/Vol] 57 mg/dL Normal >39 [facility] Comment on above: Result Comment: HDL <40 mg/dL - High Risk HDL > or = 40mg/dL- Desirable HDL >60 mg/dL - Negative Risk Performed By: #### C RIRI, CMP, 48814-2, 43216-9, 3084-1, 3016-3, 3024-7, 3051-0, 2284-8, 2132-03 #### [facility] ([id number]) [address], [address] [place] [address] Cholesterol in LDL [Mass/Vol] 79 mg/dL Normal <130 [facility] Comment on above: Result Comment: LDL <100 mg/dL - Desirable LDL >160 mg/dL - High Risk Performed By: #### Damian MENEZES, CMP, 89159-1, 70865-9, 3084-1, 3016-3, 3024-7, 3051-0, 2284-8, 2132-03 #### [facility] ([id number]) [address], [address] [place] [address] Cholesterol in VLDL [Mass/Vol] 21 mg/dL Normal 0-30 [facility] Comment on above: Performed By: ###Jake Salgado BCA, CMP, 06780-7, 70693-4, 3084-1, 3016- 3, 3024-7, 3051-0, 2284-8, 9 #### [facility] ([id number]) [address], [address] [place] [address] CHOLESTEROL:HDL 2.8 Normal 1.0-5.0 [facility] Comment on above: Performed By: #### C BCA, CMP, 66734-7, 43862-3, 3084-1, 3016- 3, 3024-7, 3051-0, 2284-8, 2132-03 #### [facility] ([id number]) [address], [address] [place] [address] Triglyceride [Mass/Vol] 104 mg/dL Normal 27-150 [facility] Comment on above: Performed By: #### C BCA, CMP, 30490-3, 03199-9, 3084-1, 3016- 3, 3024-7, 3051-0, 2284-8, 2132-03 #### [facility] ([id number]) [address], [address] [place] [address] MAGNESIUMon 09-18-2023 Magnesium [Mass/Vol] 1.7 mg/dL Low 1.8-2.6 [facility] Comment on above: Performed By: #### C BCA, CMP, 34080-4, 91822-3, 3084-1, 3016- 3, 3024-7, 3051-0, 2283-8, 2132-03 #### [facility] ([id number]) [address], [address] [place] [address] TSH Qnon 09-18-2023 TSH 2.26 uIU/mL Normal 0.49-4.67 [facility] Comment on above: Performed By: #### C BCA, CMP, 00948-5, 51133-7, 3084-1, 3016- 3, 3024-7, 3051-0, 228-8, 2132-03 #### [facility] ([id number]) [address], [address] [place] [address] URIC ACIDon 09-18-2023 Urate [Mass/Vol] 5.8 mg/dL Normal 2.6-7.2 [facility] Comment on above: Performed By: #### C BCA, CMP, 70628-4, 87309-7, 3084-1, 3016- 3, 3024-7, 3051-0, 2284-8, 2132-03 #### [facility] ([id number]) [address] [facility], [address] [place] [address] VITAMIN B12on 09-18-2023 Cobalamin (Vitamin B12) [Mass/Vol] pg/mL High 180-914 [facility] Comment on above: Performed By: #### C BCA, CMP, 75015-1, 73211-6, 3084-1, 3016- 3, 3024-7, 3051-0, 4-8, 2132-03 #### [facility] ([id number]) [address] [facility], [address] [place] [address] XR KNEE LT 3 VWSon 4 XR [...] Marquis MD on 09/18/2023 12:15 PM Normal [facility] CBC AUTO DIFFon 11-11-2022 BASO # 0.0 103/ul Normal 0.0-0.1 [facility] Comment on above: Performed By: #### U BRENT #### [facility] [address] [place] [address] Dr. Brandi Abarca Basophils/100 WBC (Bld) 0.5 % Normal 0.2-2.0 [facility] Comment on above: Performed By: #### U BRENT #### [facility] [address] [place] [address] Dr. Brandi Abarca EO # 0.2 103/ul Normal 0.0-0.7 [facility] Comment on above: Performed By: #### U BRENT #### [facility] [address] [place] [address] Dr. Brandi Abarca Eosinophils/100 WBC (Bld) 3.0 % Normal 0.9-7.0 [facility] Comment on above: Performed By: #### U BRENT #### [facility] [address] [place] [address] Dr. Brandi Abarca Erythrocyte distribution width (RBC) [Ratio] 13.6 % Normal 11.0-15.0 [facility] Comment on above: Performed By: #### U BRENT #### [facility] [address] [place] [address] Dr. Brandi Abarca Hematocrit (Bld) [Volume fraction] 34.4 % Critically low 36.0-48.0 [facility] Comment on above: Performed By: #### U BRENT #### [facility] [address] [place] [address] Dr. Branid Abarca Hemoglobin (Bld) [Mass/Vol] 10.6 g/dL Critically low 12.0-16.0 [facility] Comment on above: Performed By: #### U BRENT #### [facility] [address] [place] [address] Dr. Brandi Abarca IG # 0.02 10e3/ul Normal 0.00-0.03 [facility] Comment on above: Performed By: #### U BRENT #### [facility] [address] [place] [address] Dr. Brandi Abarca IG % 0.3 % Normal 0.0-0.5 [facility] Comment on above: Performed By: #### U BRENT #### [facility] [address] [place] [address] Dr. Brandi Abarca LYMPH # 1.2 103/ul Normal 1.2-3.8 [facility] Comment on above: Performed By: #### U BRENT #### [facility] [address] [place] [address] Dr. Brandi Abarca Lymphocytes/100 WBC (Bld) 20.4 % Critically low 20.5-60.0 [facility] Comment on above: Performed By: #### U BRENT #### [facility] [address] [place] [address] Dr. Brandi Abarca MANUAL DIFF REQ NO Normal [facility] Comment on above: Performed By: #### U BRENT #### [facility] [address] [place] [address] Dr. Brandi Abarca MCH (RBC) [Entitic mass] 30.5 pg Normal 26.7-34.0 [facility] Comment on above: Performed By: #### U BRENT #### [facility] [address] [place] [address] Dr. Brandi Abarca MCHC (RBC) [Mass/Vol] 30.8 g/dL Normal 29.9-35.2 [facility] Comment on above: Performed By: #### U BRENT #### [facility] [address] [place] [address] Dr. Brandi Abarca MCV (RBC) [Entitic vol] 99.1 fL Critically high 81.0-99.0 [facility] Comment on above: Performed By: #### U BRENT #### [facility] [address] [place] [address] Dr. Brandi Abarca MONO # 0.7 103/ul Normal 0.3-0.8 [facility] Comment on above: Performed By: #### U BRENT #### [facility] [address] [place] [address] Dr. Brandi Abarca Monocytes/100 WBC (Bld) 12.0 % Normal 1.7-12.0 [facility] Comment on above: Performed By: #### U BRENT #### [facility] [address] [place] [address] Dr. Brandi Abarca NEUT # 3.8 103/ul Normal 1.4-6.5 [facility] Comment on above: Performed By: #### U BRENT #### [facility] [address] [place] [address] Dr. Brandi Abarca Neutrophils/100 WBC (Bld) 63.8 % Normal 43.0-75.0 [facility] Comment on above: Performed By: #### U BRENT #### [facility] [address] [place] [address] Dr. Brandi Abarca Platelet mean volume (Bld) [Entitic vol] 11.5 fL Normal 9.5-13.5 [facility] Comment on above: Performed By: #### U BRENT #### [facility] [address] [place] [address] Dr. Brandi Abarca PLT 212 103/ul Normal 150-450 [facility] Comment on above: Performed By: #### U BRENT #### [facility] [address] [address] [address] Brandi Abarca RBC 3.47 106/ul Critically low 4.20-5.40 [facility] Comment on above: Performed By: #### U BRENT #### [facility] [address] [place] [address] Dr. Brandi Abarca WBC 5.9 103/ul Normal 4.0-11.0 [facility] Comment on above: Performed By: #### U BRENT #### [facility] [address] [place] [address] Dr. Brandi Abarca GLYCOHEMOGLOBIN A1Con 2022 ADA RECOMMENDATION SEE BELOW Normal [facility] Comment on above: Result Comment: ADA RECOMMENDED LIMIT 4.0 - 6.0 ADA THERAPEUTIC TARGET < 7.0 ACTION SUGGESTED > 7.0 Performed By: #### A 1C #### [facility] [address] [place] [address] Dr. Brandi Abarca Glucose [Mass/Vol] 114 mg/dL Normal [facility] Comment on above: Performed By: #### A 1C #### [facility] [address] [place] [address] Dr. Brandi Abarca HbA1c (Bld) [Mass fraction] 5.6 % Normal 4.5-6.2 [facility] Comment on above: Performed By: #### A 1C #### [facility] [address] [place] [address] Dr. Brandi Abarca MAGNESIUMon 11-11-2022 Magnesium [Mass/Vol] 1.6 mg/dL Critically low 1.8-2.4 [facility] Comment on above: Performed By: #### U BRENT #### [facility] [address] [place], [place] [id number] Dr. Brandi Abarca PROF 14(COMP METB)on 023 Albumin [Mass/Vol] 2.4 g/dL Critically low 3.4-5.0 [facility] Comment on above: Performed By: #### U BRENT #### [facility] [address] [place] [address] Dr. Brandi Abarca Albumin/Globulin [Mass ratio] 0.6 {ratio} Normal [facility] Comment on above: Performed By: #### U BRENT #### [facility] [address] [place] [address] Dr. Brandi Abarca ALP [Catalytic activity/Vol] 82 U/L Normal 46-116 [facility] Comment on above: Performed By: #### U BRENT #### [facility] [address] [place] [address] Dr. Brandi Abarca ALT [Catalytic activity/Vol] 14 U/L Normal 14-59 [facility] Comment on above: Performed By: #### U BRENT #### [facility] [address] [place] [address] Dr. Brandi Abarca Anion gap [Moles/Vol] 9.6 mmol/L Normal [facility] Comment on above: Performed By: #### U BRENT #### [facility] [address] [place] [address] Dr. Brandi Abarca AST [Catalytic activity/Vol] 14 U/L Critically low 15-37 [facility] Comment on above: Performed By: #### U BRENT #### [facility] [address] [place] [address] Dr. Brandi Abarca Bilirubin [Mass/Vol] 0.2 mg/dL Normal 0.2-1.0 [facility] Comment on above: Performed By: #### U BRENT #### [facility] [address] [place] [address] Dr. Brandi Abarca Calcium [Mass/Vol] 8.6 mg/dL Normal 8.5-10.1 [facility] Comment on above: Performed By: #### U BRENT #### [facility] [address] [place] [address] Dr. Brandi Abarca Chloride [Moles/Vol] 103 mmol/L Normal 98-107 [facility] Comment on above: Performed By: #### U BRENT #### [facility] [address] [address] [address] Brandi Abarca CO2 [Moles/Vol] 29.6 mmol/L Normal 21.0-32.0 [facility] Comment on above: Performed By: #### U BRENT #### [facility] [address] [address] [address] Brandi Abarca Creatinine [Mass/Vol] 0.90 mg/dL Normal 0.55-1.02 [facility] Comment on above: Performed By: #### U BRENT #### [facility] [address] [place] [address] Dr. Brandi Abarca EGFR-AF MALTESE >60 Normal >=60 [facility] Comment on above: Performed By: #### U BRENT #### [facility] [address] [address] [address] Brandi Abarca EGFR-NON AF MALTESE 60 mL/min/1.73m2 Normal >=60 [facility] Comment on above: Performed By: #### U BRENT #### [facility] [address] [place] [address] Dr. Brandi Abarca Globulin (S) [Mass/Vol] 3.9 g/dL Normal [facility] Comment on above: Performed By: #### U BRENT #### [facility] [address] [address] [address] Brandi Abarca Glucose [Mass/Vol] 113 mg/dL Critically high 74-106 [facility] Comment on above: Performed By: #### U BRENT #### [facility] [address] [address] [address] Brandi Abarca Potassium [Moles/Vol] 4.2 mmol/L Normal 3.5-5.1 [facility] Comment on above: Performed By: #### U BRENT #### [facility] [address] [address] [address] Brandi Abarca Protein [Mass/Vol] 6.3 g/dL Critically low 6.4-8.2 [facility] Comment on above: Performed By: #### U BRENT #### [facility] [address] [place] [address] Dr. Brandi Abarca Sodium [Moles/Vol] 138 mmol/L Normal 136-145 [facility] Comment on above: Performed By: #### U BRENT #### [facility] [address] [place] [address] Dr. Brandi Abarca Urea nitrogen [Mass/Vol] 14.0 mg/dL Normal 7.0-18.0 [facility] Comment on above: Performed By: #### U BRENT #### [facility] [address] [place] [address] Dr. Brandi Abarca Urea nitrogen/Creatinine [Mass ratio] 15.6 mg/mg Normal [facility] Comment on above: Performed By: #### U BRENT #### [facility] [address] [place] [address] Dr. Brandi Abarca CBC AUTO DIFFon 11-10-2022 BASO # 0.0 103/ul Normal 0.0-0.1 [facility] Comment on above: Performed By: #### A 1C #### [facility] [address] [place] [address] Dr. Brandi Abarca Basophils/100 WBC (Bld) 0.3 % Normal 0.2-2.0 [facility] Comment on above: Performed By: #### A 1C #### [facility] [address] [place] [address] Dr. Brandi Abarca EO # 0.0 103/ul Normal 0.0-0.7 [facility] Comment on above: Performed By: #### A 1C #### [facility] [address] [place] [address] Dr. Brandi Abarca Eosinophils/100 WBC (Bld) 0.3 % Critically low 0.9-7.0 [facility] Comment on above: Performed By: #### A 1C #### [facility] [address] [place] [address] Dr. Brandi Abarca Erythrocyte distribution width (RBC) [Ratio] 13.7 % Normal 11.0-15.0 [facility] Comment on above: Performed By: #### A 1C #### [facility] [address] [place] [address] Dr. Brandi Abarca Hematocrit (Bld) [Volume fraction] 36.3 % Normal 36.0-48.0 [facility] Comment on above: Performed By: #### A 1C #### [facility] [address] [place] [address] Dr. Brandi Abarca Hemoglobin (Bld) [Mass/Vol] 11.3 g/dL Critically low 12.0-16.0 [facility] Comment on above: Performed By: #### A 1C #### [facility] [address] [place] [address] Dr. Brandi Abarca IG # 0.03 10e3/ul Normal 0.00-0.03 [facility] Comment on above: Performed By: #### A 1C #### [facility] [address] [place] [address] Dr. Brandi Abarca IG % 0.4 % Normal 0.0-0.5 [facility] Comment on above: Performed By: #### A 1C #### [facility] [address] [place] [address] Dr. Brandi Abarca LYMPH # 1.1 103/ul Critically low 1.2-3.8 [facility] Comment on above: Performed By: #### A 1C #### [facility] [address] [place] [address] Dr. Brandi Abarca Lymphocytes/100 WBC (Bld) 15.1 % Critically low 20.5-60.0 [facility] Comment on above: Performed By: #### A 1C #### [facility] [address] [place] [address] Dr. Brandi Abarca MANUAL DIFF REQ NO Normal [facility] Comment on above: Performed By: #### A 1C #### [facility] [address] [place] [address] Dr. Brandi Abarca MCH (RBC) [Entitic mass] 30.6 pg Normal 26.7-34.0 [facility] Comment on above: Performed By: #### A 1C #### [facility] [address] [address] [address] Brandi Abarca MCHC (RBC) [Mass/Vol] 31.1 g/dL Normal 29.9-35.2 [facility] Comment on above: Performed By: #### A 1C #### [facility] [address] [address] [address] Brandi Abarca MCV (RBC) [Entitic vol] 98.4 fL Normal 81.0-99.0 [facility] Comment on above: Performed By: #### A 1C #### [facility] [address] [address] [address] Brandi Abarca MONO # 0.9 103/ul Critically high 0.3-0.8 [facility] Comment on above: Performed By: #### A 1C #### [facility] [address] [address] [address] Brandi Abarca Monocytes/100 WBC (Bld) 11.6 % Normal 1.7-12.0 [facility] Comment on above: Performed By: #### A 1C #### [facility] [address] [place] [address] Dr. Brandi Abarca NEUT # 5.5 103/ul Normal 1.4-6.5 [facility] Comment on above: Performed By: #### A 1C #### [facility] [address] [address] [address] Brandi Abarca Neutrophils/100 WBC (Bld) 72.3 % Normal 43.0-75.0 [facility] Comment on above: Performed By: #### A 1C #### [facility] [address] [address] [address] Brandi Abarca Platelet mean volume (Bld) [Entitic vol] 9.8 fL Normal 9.5-13.5 [facility] Comment on above: Performed By: #### A 1C #### [facility] [address] [address] [address] Brandi Abarca PLT 211 103/ul Normal 150-450 [facility] Comment on above: Performed By: #### A 1C #### [facility] [address] [place], [place] [address] Dr. Brandi Abarca RBC 3.69 106/ul Critically low 4.20-5.40 [facility] Comment on above: Performed By: #### A 1C #### [facility] [address] [place], [place] [address] Dr. Brandi Abarca WBC 7.5 103/ul Normal 4.0-11.0 [facility] Comment on above: Performed By: #### A 1C #### [facility] [address] [place], [place] [address] Dr. Brandi Abarca ECHOCARDIO M/2D COMPLETEon 0 11-10-2022 ECHOCARDIO M/2D COMPLETE Patient: CUATE GOODMAN Exam Date: 11/10/2022 : 1940 Gender:F Ordering : RIYA POSADAS . Admission #: [id number] Family : Order #: [id number] CLICK HERE TO VIEW EXAM ECHOCARDIOGRAM REPORT [...] Moore M.D. on 11/11/2022 at 10:13 Normal [facility] GLYCOHEMOGLOBIN A1Con 2022 ADA RECOMMENDATION SEE BELOW Normal [facility] Comment on above: Result Comment: ADA RECOMMENDED LIMIT 4.0 - 6.0 ADA THERAPEUTIC TARGET < 7.0 ACTION SUGGESTED > 7.0 Performed By: #### U BRENT #### [facility] [address] [place] [address] Dr. Brandi Abarca Glucose [Mass/Vol] 120 mg/dL Normal [facility] Comment on above: Performed By: #### U BRENT #### [facility] [address] [address] [address] Brandi Abarca HbA1c (Bld) [Mass fraction] 5.8 % Normal 4.5-6.2 [facility] Comment on above: Performed By: #### U BRENT #### [facility] [address] [address] [address] Brandi Abarca MAGNESIUMon 11-10-2022 Magnesium [Mass/Vol] 1.6 mg/dL Critically low 1.8-2.4 [facility] Comment on above: Performed By: #### A 1C #### [facility] [address] [address] [address] Brandi Abarca PROF 14(COMP METB)on 023 Albumin [Mass/Vol] 2.6 g/dL Critically low 3.4-5.[address] [facility] Comment on above: Performed By: #### U BRENT #### [facility] [address] [place] [address] Dr. Brandi Abarca Albumin/Globulin [Mass ratio] 0.7 {ratio} Normal [facility] Comment on above: Performed By: #### U BRENT #### [facility] [address] [place] [address] Dr. Brandi Abarca ALP [Catalytic activity/Vol] 84 U/L Normal 46-116 [facility] Comment on above: Performed By: #### U BRENT #### [facility] [address] [address] [address] Brandi Abarca ALT [Catalytic activity/Vol] 16 U/L Normal 14-59 [facility] Comment on above: Performed By: #### U BRENT #### [facility] [address] [place] [address] Dr. Brandi Abarca Anion gap [Moles/Vol] 5.4 mmol/L Normal [facility] Comment on above: Performed By: #### U BRENT #### [facility] [address] [place] [address] Dr. Brandi Abarca AST [Catalytic activity/Vol] 15 U/L Normal 15-37 [facility] Comment on above: Performed By: #### U BRENT #### [facility] [address] [address] [address] Brandi Abarca Bilirubin [Mass/Vol] 0.5 mg/dL Normal 0.2-1.0 [facility] Comment on above: Performed By: #### U BRENT #### [facility] [address] [place] [address] Dr. Brandi Abarca Calcium [Mass/Vol] 8.8 mg/dL Normal 8.5-10.1 [facility] Comment on above: Performed By: #### U BRENT #### [facility] [address] [address] [address] Brandi Abarca Chloride [Moles/Vol] 101 mmol/L Normal 98-107 [facility] Comment on above: Performed By: #### U BRENT #### [facility] [address] [address] [address] Brandi Abarca CO2 [Moles/Vol] 33.4 mmol/L Critically high 21.0-32.0 [facility] Comment on above: Performed By: #### U BRENT #### [facility] [address] [address] [address] Brandi Abarca Creatinine [Mass/Vol] 0.85 mg/dL Normal 0.55-1.02 [facility] Comment on above: Performed By: #### U BRENT #### [facility] [address] [address] [address] Brandi Abarca EGFR-AF MALTESE >60 Normal >=60 [facility] Comment on above: Performed By: #### U BRENT #### [facility] [address] [address] [address] Brandi Abarca EGFR-NON AF MALTESE >60 Normal >=60 [facility] Comment on above: Performed By: #### U BRENT #### [facility] [address] [address] [address] Brandi Abarca Globulin (S) [Mass/Vol] 3.9 g/dL Normal [facility] Comment on above: Performed By: #### U BRENT #### [facility] [address] [address] [address] Brandi Abarca Glucose [Mass/Vol] 116 mg/dL Critically high 74-106 [facility] Comment on above: Performed By: #### U BRENT #### [facility] [address] [place] [address] Dr. Brandi Abarca Potassium [Moles/Vol] 3.8 mmol/L Normal 3.5-5.1 [facility] Comment on above: Performed By: #### U BRENT #### [facility] [address] [address] [address] Brandi Abarca Protein [Mass/Vol] 6.5 g/dL Normal 6.4-8.2 [facility] Comment on above: Performed By: #### U BRENT #### [facility] [address] [place] [address] Dr. Brandi Abarca Sodium [Moles/Vol] 136 mmol/L Normal 136-145 [facility] Comment on above: Performed By: #### U BRENT #### [facility] [address] [place] [address] Dr. Brandi Abarca Urea nitrogen [Mass/Vol] 12.0 mg/dL Normal 7.0-18.0 [facility] Comment on above: Performed By: #### U BRENT #### [facility] [address] [place] [address] Dr. Brandi Abarca Urea nitrogen/Creatinine [Mass ratio] 14.1 mg/mg Normal [facility] Comment on above: Performed By: #### U BRENT #### [facility] [address] [place] [address] Dr. Brandi Abarca PTT HEPARIN MONITORon 2022 aPTT Coag (Bld) [Time] 48.7 s Normal 39.5-54.2 [facility] Comment on above: Performed By: #### P TTHEP #### [facility] [address] [place] [address] Dr. Brandi Abarca aPTT Coag (Bld) [Time] 56.6 s Critically high 39.5-54.2 [facility] Comment on above: Performed By: #### A 1C #### [facility] [address] [place] [address] Dr. Brandi Abarca aPTT Coag (Bld) [Time] 51.4 s Normal 39.5-54.2 [facility] Comment on above: Performed By: #### P TTHEP #### [facility] [address] [place] [address] Dr. Brandi Abarca BNPon 11-09-2022 Natriuretic peptide B (Bld) [Mass/Vol] 1702.0 pg/mL Normal <=1,800.0 [facility] Comment on above: Performed By: #### U BRENT #### [facility] [address] [place] [address] Dr. Brandi Abarca Natriuretic peptide B (Bld) [Mass/Vol] 1702.0 pg/mL Normal <=1,800.0 [facility] Comment on above: Performed By: #### H STROPN, BNP, BMP #### [facility] [address] [place] [address] Dr. Brandi Abarca CBC AUTO DIFFon 11-09-2022 BASO # 0.0 103/ul Normal 0.0-0.1 [facility] Comment on above: Performed By: #### A 1C #### [facility] [address] [place] [address] Dr. Brandi Abarca Basophils/100 WBC (Bld) 0.4 % Normal 0.2-2.0 [facility] Comment on above: Performed By: #### A 1C #### [facility] [address] [place] [address] Dr. Brandi Abarca EO # 0.2 103/ul Normal 0.0-0.7 [facility] Comment on above: Performed By: #### A 1C #### [facility] [address] [place] [address] Dr. Brandi Abarca Eosinophils/100 WBC (Bld) 1.8 % Normal 0.9-7.0 [facility] Comment on above: Performed By: #### A 1C #### [facility] [address] [place] [address] Dr. Brandi Abarca Erythrocyte distribution width (RBC) [Ratio] 13.6 % Normal 11.0-15.0 [facility] Comment on above: Performed By: #### A 1C #### [facility] [address] [place] [address] Dr. Brandi Abarca Hematocrit (Bld) [Volume fraction] 38.2 % Normal 36.0-48.0 [facility] Comment on above: Performed By: #### A 1C #### [facility] [address] [place] [address] Dr. Brandi Abarca Hemoglobin (Bld) [Mass/Vol] 12.2 g/dL Normal 12.0-16.0 [facility] Comment on above: Performed By: #### A 1C #### [facility] [address] [place] [address] Dr. Brandi Abarca IG # 0.02 10e3/ul Normal 0.00-0.03 [facility] Comment on above: Performed By: #### A 1C #### [facility] [address] [place] [address] Dr. Brandi Abarca IG % 0.2 % Normal 0.0-0.5 [facility] Comment on above: Performed By: #### A 1C #### [facility] [address] [place] [address] Dr. Brandi Abarca LYMPH # 1.3 103/ul Normal 1.2-3.8 [facility] Comment on above: Performed By: #### A 1C #### [facility] [address] [place] [address] Dr. Brandi Abarca Lymphocytes/100 WBC (Bld) 15.4 % Critically low 20.5-60.0 [facility] Comment on above: Performed By: #### A 1C #### [facility] [address] [place] [address] Dr. Brandi Abarca MANUAL DIFF REQ NO Normal [facility] Comment on above: Performed By: #### A 1C #### [facility] [address] [place] [address] Dr. Brandi Abarca MCH (RBC) [Entitic mass] 30.7 pg Normal 26.7-34.0 [facility] Comment on above: Performed By: #### A 1C #### [facility] [address] [place] [address] Dr. Brandi Abarca MCHC (RBC) [Mass/Vol] 31.9 g/dL Normal 29.9-35.2 [facility] Comment on above: Performed By: #### A 1C #### [facility] [address] [place] [address] Dr. Brandi Abarca MCV (RBC) [Entitic vol] 96.0 fL Normal 81.0-99.0 [facility] Comment on above: Performed By: #### A 1C #### [facility] [address] [place] [address] Dr. Brandi Abarca MONO # 0.7 103/ul Normal 0.3-0.8 [facility] Comment on above: Performed By: #### A 1C #### [facility] [address] [place] [address] Dr. Brandi Abarca Monocytes/100 WBC (Bld) 8.6 % Normal 1.7-12.0 [facility] Comment on above: Performed By: #### A 1C #### [facility] [address] [place] [address] Dr. Brandi Abarca NEUT # 6.0 103/ul Normal 1.4-6.5 [facility] Comment on above: Performed By: #### A 1C #### [facility] [address] [place] [address] Dr. Brandi Abarca Neutrophils/100 WBC (Bld) 73.6 % Normal 43.0-75.0 [facility] Comment on above: Performed By: #### A 1C #### [facility] [address] [place] [address] Dr. Brandi Abarca Platelet mean volume (Bld) [Entitic vol] 9.8 fL Normal 9.5-13.5 [facility] Comment on above: Performed By: #### A 1C #### [facility] [address] [place] [address] Dr. Brandi Abarca PLT 234 103/ul Normal 150-450 [facility] Comment on above: Performed By: #### A 1C #### [facility] [address] [place] [address] Dr. Brandi Abarca RBC 3.98 106/ul Critically low 4.20-5.40 [facility] Comment on above: Performed By: #### A 1C #### [facility] [address] [place] [address] Dr. Brandi Abarca WBC 8.1 103/ul Normal 4.0-11.0 [facility] Comment on above: Performed By: #### A 1C #### [facility] [address] [place] [address] Dr. Brandi Abarca CTA CHEST WO W [...] EYAD FREITAS Date: 2022-11-09 08:23 Normal [facility]18 SARS-CoV-2 (COVID-19) RNA SMILEY+probe Ql (Unsp spec) Not detected Normal NOT DETECTED [facility] Comment on above: Result Comment: This test is not yet approved or cleared by the [place] FDA. When there are no FDA-approved or cleared tests available, and other criteria are met, FDA can make tests available under an emergency access mechanism called an Emergency Use Authorization (EUA). The EUA for this test is supported by the [place] of Health and Human Service's (HHS's) declaration [...] consistent with SARS-CoV-2. Performed By: #### C COUNTS INCLUDE 234 BEDS AT [facility] #### [facility] [address] [address] [address] Brandi Abarca PROF CHEM 8 (BAS METB)on Anion gap [Moles/Vol] 12.2 mmol/L Normal [facility] Comment on above: Performed By: #### H STROPN, BNP, BMP #### [facility] [address] [place] [address] Dr. Brandi Abarca Calcium [Mass/Vol] 9.0 mg/dL Normal 8.5-10.1 [facility] Comment on above: Performed By: #### H STROPN, BNP, BMP #### [facility] [address] [place] [address] Dr. Brandi Abarca Chloride [Moles/Vol] 103 mmol/L Normal 98-107 [facility] Comment on above: Performed By: #### H STROPN, BNP, BMP #### [facility] [address] [place] [address] Dr. Brandi Abarca CO2 [Moles/Vol] 30.6 mmol/L Normal 21.0-32.0 [facility] Comment on above: Performed By: #### H STROPN, BNP, BMP #### [facility] [address] [place] [address] Dr. Brandi Abarca Creatinine [Mass/Vol] 0.89 mg/dL Normal 0.55-1.02 [facility] Comment on above: Performed By: #### H STROPN, BNP, BMP #### [facility] [address] [place] [address] Dr. Brandi Abarca EGFR-AF MALTESE >60 Normal >=60 [facility] Comment on above: Performed By: #### H STROPN, BNP, BMP #### [facility] [address] [place] [address] Dr. Brandi Abarca EGFR-NON AF MALTESE >60 Normal >=60 [facility] Comment on above: Performed By: #### H STROPN, BNP, BMP #### [facility] [address] [place] [address] Dr. Brandi Abarca Glucose [Mass/Vol] 102 mg/dL Normal 74-106 [facility] Comment on above: Performed By: #### H STROPN, BNP, BMP #### [facility] [address] [address] [address] Brandi Abarca Potassium [Moles/Vol] 3.8 mmol/L Normal 3.5-5.1 [facility] Comment on above: Performed By: #### H STROPN, BNP, BMP #### [facility] [address] [place] [address] Dr. Brandi Abarca Sodium [Moles/Vol] 142 mmol/L Normal 136-145 [facility] Comment on above: Performed By: #### H STROPN, BNP, BMP #### [facility] [address] [place] [address] Dr. Brandi Abarca Urea nitrogen [Mass/Vol] 16.0 mg/dL Normal 7.0-18.0 [facility] Comment on above: Performed By: #### H STROPN, BNP, BMP #### [facility] [address] [place] [address] Dr. Brandi Abarca Urea nitrogen/Creatinine [Mass ratio] 18.0 mg/mg Normal [facility] Comment on above: Performed By: #### H STROPN, BNP, BMP #### [facility] [address] [place] [address] Dr. Brandi Abarca PROTIMEon 11-09-2022 INR Coag (PPP) [Relative time] 1.00 {INR} Normal [facility] Comment on above: Performed By: #### A 1C #### [facility] [address] [place] [address] Dr. Brandi Abarca INR GUIDELINES SEE BELOW Normal [facility] Comment on above: Result Comment: NOVA RED INR: 2.0 - 3.0 CONDITIONS NOT LISTED BELOW 2.5 - 3.5 FOR PROSTHETIC HEART VALVE REPLACEMENT 2.5 - 3.5 RECURRENT THROMBOSIS Performed By: #### A 1C #### [facility] [address] [place] [address] Dr. Brandi Abarca PT Coag (PPP) [Time] 10.6 s Normal 9.0-11.6 [facility] Comment on above: Performed By: #### A 1C #### [facility] [address] [place] [address] Dr. Brandi Abarca PTTon 11-09-2022 aPTT Coag (Bld) [Time] 24.3 s Normal 22.3-36.2 [facility] Comment on above: Performed By: #### A 1C #### [facility] [address] [place] [address] Dr. Brandi Abarca PTT HEPARIN MONITORon 2022 aPTT Coag (Bld) [Time] 47.3 s Normal 39.5-54.2 [facility] Comment on above: Performed By: #### U BRENT #### [facility] [address] [place] [address] Dr. Brandi Abarca SYMPTOMATIC COVID-19 ANTIGEN on 11-09-2022 EUA Statement SEE BELOW Normal [facility] Comment on above: Result Comment: This [...] sooner. Performed By: #### C VDAGS #### [facility] [address] [place] [address] Dr. Brandi Abarca SARS-CoV-2 (COVID-19) RNA SMILEY+probe Ql (Unsp spec) Negative Normal NEGATIVE [facility] Comment on above: Performed By: #### C VDAGS #### [facility] [address] [place] [address] Dr. Brandi Abarca TROPONIN, HIGH SENSITIVITYon 11-09-2022 HSTROP 15.6 pg/mL Normal 4.0-51.3 [facility] Comment on above: Result Comment: CUT- OFF POINTS HAVE BEEN ESTABLISHED BASED ON THE FOURTH UNIVERSAL DEFINITIONS OF MYOCARDIAL INFARCTION. THE UPPER REFERENCE LIMIT (URL) OF TROPONIN, DEFINED THE 99TH PERCENTILE OF cTnI DISTRIBUTION IN A REFERENCE POPULATION, HAS BEEN CONFIRMED THE DECISION THRESHOLD FOR [place] DIAGNOSIS. Performed By: #### H STROPN #### [facility] [address] [address] [address] Brandi Abarca HSTROP 16.4 pg/mL Normal 4.0-51.3 [facility] Comment on above: Result Comment: CUT- OFF POINTS HAVE BEEN ESTABLISHED BASED ON THE FOURTH UNIVERSAL DEFINITIONS OF MYOCARDIAL INFARCTION. THE UPPER REFERENCE LIMIT (URL) OF TROPONIN, DEFINED THE 99TH PERCENTILE OF cTnI DISTRIBUTION IN A REFERENCE POPULATION, HAS BEEN CONFIRMED THE DECISION THRESHOLD FOR [place] DIAGNOSIS. Performed By: #### H STROPN, BNP, BMP #### [facility] [address] [place] [address] Dr. Brandi Abarca URIC ACID SERUMon 11-09-2022 Urate [Mass/Vol] 4.4 mg/dL Normal 2.6-6.0 [facility] Comment on above: Performed By: #### U BRENT #### [facility] [address] [place] [address] Dr. 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 HOST Work Phone: [employer] 03-16-2024 15:27-0400 Body mass index (BMI) [Ratio] 39.82 kg/m2 Ave Mackey APRN-MARGARITA Work Phone: [facility] 03-16-2024 15:27-0400 Body temperature 98.29 [degF] Ave Mackey APRN-BEVERAGE HOST Work Phone: [facility] 03-16-2024 15:27-0400 Body weight 105.[address] Mackey APRN-MARGARITA Work Phone: [facility] 02-23-2024 15:12-0400 Body height 162.6 cm Paige Damon Work Phone: [facility] 02-23-2024 15:12-0400 Body mass index (BMI) [Ratio] 39.82 kg/m2 Paige Damon Work Phone: [facility] 02-23-2024 15:12-0400 Body temperature 98.2 [degF] aPige Damon Work Phone: [facility] 02-23-2024 15:12-0400 Body weight 105.23 kg Paige Damon Work Phone: [facility] 02-11-2024 07:32-0400 Body temperature 97.9 [degF] Mohan Gomez MD Work Phone: [facility] 02-11-2024 07:32-0400 Diastolic blood pressure 57 mm[Hg] Mohan Gomez MD Work Phone: [facility] 02-11-2024 07:32-0400 Heart rate 85 /min Mohan Gomez MD Work Phone: [facility] 02-11-2024 07:32-0400 Respiratory rate 18 /min Mohan Gomez MD Work Phone: [facility] 02-11-2024 07:32-0400 SaO2% (BldA) [Mass fraction] 94 % Mohan Gomez MD Work Phone: [facility] 02-11-2024 07:32-0400 Systolic blood pressure 109 mm[Hg] Mohan Gomez MD Work Phone: [facility] 02-11-2024 04:32-0400 Body mass index (BMI) [Ratio] 39.93 kg/m2 Mohan Gomez MD Work Phone: [facility] 02-11-2024 04:32-0400 Body weight 105.51 kg Mohan Gomez MD Work Phone: [facility] 02-02-2024 11:44-0400 Body height 162.6 cm dough Work Phone: [facility] 02-02-2024 11:44-0400 Body mass index (BMI) [Ratio] 41.37 kg/m2 dough Work Phone: [facility] 02-02-2024 11:44-0400 Body temperature 98.8 [degF] dough Work Phone: [employer] [facility] 02-02-2024 11:44-0400 Body weight 109.32 kg dough Work Phone: [facility] 01-19-2024 14:50-0400 Body height 162.6 cm Mohan Gomez MD Work Phone: [facility] 01-19-2024 12:50-0400 Body temperature 98.2 [degF] Erik Heredia MD Work Phone: [facility] 01-19-2024 12:50-0400 Diastolic blood pressure 62 mm[Hg] Erik Heredia MD Work Phone: [employer] [facility] 01-19-2024 12:50-0400 Heart rate 89 /min Erik Heredia MD Work Phone: [facility] 01-19-2024 12:50-0400 Respiratory rate 16 /min Erik Heredia MD Work Phone: [facility] 01-19-2024 12:50-0400 SaO2% (BldA) [Mass fraction] 97 % Erik Heredia MD Work Phone: [facility] 01-19-2024 12:50-0400 Systolic blood pressure 137 mm[Hg] Erik Heredia MD Work Phone: [facility] 01-13-2024 10:00-0400 Body mass index (BMI) [Ratio] 37.24 kg/m2 Erik Heredia MD Work Phone: [facility] 01-13-2024 10:00-0400 Body weight 98.4 kg Erik Heredia MD Work Phone: [facility] 01-11-2024 11:55-0400 Body height 162.6 cm Erik Heredia MD Work Phone: [facility] 12-01-2023 14:19-0400 Body height 162.6 cm Erik Heredia MD Work Phone: [facility] 12-01-2023 14:19-0400 Body mass index (BMI) [Ratio] 38.96 kg/m2 Erik Heredia MD Work Phone: [facility] 12-01-2023 14:19-0400 Body weight 102.97 kg Erik Heredia MD Work Phone: [facility] Encounters Encounter Date Encounter Type Care Provider Facility Start: 03-16-2024 End: 03-16-2024 Postop follow up visit related to original px Paige Damon Work Phone: [facility] Comment on above: 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) Start: 03-16-2024 End: 03-16-2024 Subsequent hospital visit by physician Paige Damon Work Phone: [facility] Start: 03-16-2024 ambulatory PAIGE DAMON [facility] Start: 02-23-2024 End: 02-23-2024 Postop follow up visit related to original px Paige Damon Work Phone: [facility] Comment on above: S/P total left hip a rthroplasty (Primary Dx) Start: 02-23-2024 ambulatory PAIGE DAMON [facility] Start: 02-23-2024 End: 02-23-2024 Subsequent hospital visit by physician Paige Damon Work Phone: [facility] Start: 02-02-2024 End: 02-02-2024 Postop follow up visit related to original px Paige Damon Work Phone: [facility] Comment on above: S/P total left hip a rthroplasty (Primary Dx) Start: 02-02-2024 End: 02-02-2024 Subsequent hospital visit by physician Paige Damon Work Phone: [facility] [facility] Start: 02-02-2024 [facility] Start: 01-19-2024 End: 02-11-2024 Evaluation and management of inpatient Mohan Gomez MD Work Phone: [facility] Start: 01-11-2024 End: 01-19-2024 ambulatory TIAN KUHN [facility] Start: 01-11-2024 End: 01-19-2024 Encounter for other preprocedural examination [facility] Start: 01-11-2024 End: 01-19-2024 Patient encounter status Erik Heredia MD Work Phone: [facility] Start: 01-11-2024 End: 01-19-2024 Subsequent hospital visit by physician Erik Heredia MD Work Phone: [facility] Comment on above: S/P total hip arthro plasty Start: 12-22-2023 End: 12-22-[address] [facility] Start: 12-22-2023 End: 12-22-2023 Encounter for other preprocedural examination [facility] Start: 12-16-2023 ambulatory ABHI BALTAZAR [facility] Start: 12-01-2023 End: 12-01-2023 Office outpatient new 60 minutes Erik Heredia MD Work Phone: [facility] Comment on above: Pain of left hip (Pr imary Dx) Start: 12-01-2023 End: 12-01-2023 Subsequent hospital visit by physician Erik Heredia MD Work Phone: [place] [facility] Start: 12-01-2023 ambulatory TRUMAN BOO JR. [facility] Start: 11-03-2023 End: 11-04-2023 ambulatory TRUMAN ARRIAGA Not Available Start: 09-18-2023 End: 09-19-2023 ambulatory [facility] Start: 11-09-[address] TIAN KUHN Fac ility:H1 Start: 11-09-2022 End: 11-11-2022 Evaluation and management of inpatient DR TIAN KUHN Facility:H1 Procedures Date Procedure Procedure Detail Performing Clinician Start: 02-11-2024 Basic metabolic pane l calcium total Mohan Gomez MD Work Phone: Start: 02-11-2024 C-reactive protein Lve Moreno MD Work Phone: Start: 02-11-2024 Complete [...] count complete auto&auto difrntl wbc Ave Mackey MANDREL PULLER-BEVERAGE HOST Work Phone: Start: 01-13-2024 Assay of troponin [...] examinati on pelvis 1/[address] APRN-BEVERAGE HOST Work Phone: Start: 01-11-2024 SURGICAL PATHOLOGY REQUEST [...] Activity Detail Author Start: 02-14-2026 Tetanus vaccination [facility] Start: 03-19-2024 Influenza vaccination [facility] Start: 03-17-2024 End: 03-17-2024 Patient encounter procedure 03/17/2024 10:45 AM EDT Office Visit [facility] [address] [place] [address] Mohan Gomez MD [address] [place] [address] [facility] Start: 03-09-2024 End: 03-09-2024 Patient encounter procedure 03/09/2024 4:00 PM EDT Office Visit [facility] [address] [place] [address] [address], MANDREL PULLER-BEVERAGE HOST [address] [place] [address] [facility] Start: 02-23-2024 End: 02-23-2024 ambulatory [facility] Start: 02-23-2024 End: 02-23-2024 Patient encounter procedure 02/23/2024 3:00 PM EDT Office Visit [facility] [address] [facility] [place] [address] Paige Dmaon [address] [place] [address] [facility] Start: 02-21-2024 End: 02-21-2024 [facility] Start: 02-02-2024 End: 02-02-2024 Patient encounter procedure 02/02/2024 11:30 AM EDT Office Visit [facility] [address] [facility] [place] [place] [address] Paige Damon [address] [place] [id number] [facility] Start: 01-10-2024 End: 01-10-2024 Admission to same day surgery center 01/10/2024 6:45 AM EDT - 01/10/2024 8:00 AM EDT [address] [place] [address] Erik Heredia MD [address] [place] [address] ARTHROPLASTY HIP TOTAL AL [facility] Comment on above: ARTHROPLASTY HIP TOT AL AL Start: 01-10-2024 End: 01-10-2024 Arthrp acetblr/prox fem prostc agrft/algrft ARTHROPLASTY HIP TOTAL LATERAL APPROACH Osteoarthritis of left hip, unspecified osteoarthritis type 01/10/2024 6:45 AM EDT [facility] Start: 01-10-2024 Subsequent hospital visit by physician 01/10/2024 6:45 AM EDT Hospital Encounter [facility] [address] [place] [address] Erik Heredia MD [address] [place] [address] Osteoarthritis of left hip, unspecified osteoarthritis type [facility] Comment on above: Osteoarthritis of le ft hip, unspecified osteoarthritis type Start: 12-16-2023 End: 12-16-2023 Admission to establishment 12/16/2023 10:00 AM EDT Pre-Operative Nurse Assessment [facility] Pre Admission [address] [place] [address] [facility] Start: 03-19-2023 COVID-19 VACCINE ( season) COVID-19 VACCINE ( season) [facility] Start: 03-19-2023 [facility] Start: 10-17-2008 Pneumococcal vaccination [facility] Start: 2005 Zoster vaccine hzv l cheryl for subcutaneous use ZOSTER (SHINGLES) VACCINE (2 of 3) [facility] Start: 2005 [facility] Start: 2002 RSV VACCINE (1 - 1-d ose 60+ series) RSV VACCINE (1 - 1-dose 60+ series) [facility] Start: 10-11-1987 Screening for malign ant neoplasm of colon [facility] Start: 08-23-1985 Hepatitis B vaccination [facility] Start: 1982 Screening for malign ant neoplasm of breast [facility] Start: 10-11-1963 Screening for malign ant neoplasm of cervix [facility] Start: 1942 Screening for osteoporosis [facility] End: 01-11-2024 XR Hip - left Single view [facility] Comment on above: One Time for 1 Occur rences starting 01/11/2024 until 01/11/2024 XR Pelvis and Hip - left Views XR HIP WITH PELVIS LEFT Imaging Routine Pain of left hip 12/01/2023 2:03 PM EDT [facility] Work Phone: XR Pelvis and Hip - left Views XR HIP WITH PELVIS LEFT Imaging Routine S/P total left hip arthroplasty 02/02/2024 11:31 AM EDT [facility] XR Pelvis and Hip - left Views XR HIP WITH PELVIS LEFT Imaging Routine S/P total left hip arthroplasty 02/23/2024 2:59 PM EDT [facility] XR Pelvis and Hip - left Views XR HIP WITH PELVIS LEFT Imaging Routine Hx of total hip arthroplasty, left 03/16/2024 2:21 PM EDT [facility] Immunizations Immunization Date Immunization Notes Care Provider Fa cili 02-12-2021 influenza virus vaccine, unspecified formulation Erik Heredia MD Work Phone: [facility] 08-15-2005 zoster vaccine, unspecified formulation Erik Heredia MD Work Phone: [facility] Payers Date Payer Category Payer Medicare [id number] 1957 Medicare [id number] 1940 Unknown [id number] 2.16.84 [id number] 1940 Unknown [id number] 2.16.8 [id number] 1942 Unknown [id number] 2.16.8 40.1.722759.3.579.2.1286 1942 Unknown [id number] 2.16.8 40.1.763862.3.579.2.1286 1942 Unknown [id number] 2.16.84 0.1.375083.3.579.2.1259 1942 Unknown [id number] 2.16.84 0.1.357852.3.579.2.1259 1942 Unknown [id number] 2.16.8 40.1.267658.3.579.2.983 1942 Unknown [id number] 2.16.8 40.1.945728.3.579.2.983 1942 Unknown [id number] 2.16.8 40.1.925112.3.579.2.983 1942 Unknown [id number] 2.16.8 40.1.364689.3.579.2.983 1942 Unknown [id number] 2.16.8 40.1.869882.3.579.2.983 1942 Unknown [id number] 2.16.8 40.1.032872.3.579.2.983 1942 Unknown [id number] 2.16.8 40.1.559255.3.579.2.983 1942 Unknown [id number] 2.16.8 40.1.595253.3.579.2.983 1942 Unknown [id number] 2.16.8 40.1.806663.3.579.2.983 1942 Unknown [id number] 2.16.8 40.1.667719.3.579.2.983 1942 Unknown [id number] 2.16.8 40.1.659655.3.579.2.983 Social History Date Type Detail Facility Start: 12-01-2023 Tobacco smoking status NHIS Never sm oked tobacco [facility] Start: 12-01-2023 Tobacco use and exposure Smoke less tobacco non-user [facility] Start: 12-01-2023 End: 03-16-2024 Alcoholic beverage intake Lifetime non-drinker (finding) [facility] Start: 12-01-2023 End: 01-21-2024 History of Social function [facility] Start: 12-01-2023 End: 01-21-2024 Tobacco use panel [facility] Start: 1940 Sex assigned at Not on file A [employer] Has the [employer], or [employer] threatened to shut off services in your home in past 12Mo No [facility] (I/We) worried david er (my/our) food would run out before (I/we) got money to buy more. Never true [facility] In the past 12 month s, has lack of transportation kept you from medical appointments or from getting medications? No [facility] How hard is it for y ou to pay for the very basics like food, housing, medical care, and heating Not very hard [facility] Medical Equipment Procedure Code Equipment Code Equipment Origin al Text Equipment Identifier Dates [id number] Start: 01-11-2024 [id number] Start: 01-11-2024 [id number] Start: 01-11-2024 [id number] Start: 01-11-2024 [id number] Start: 01-11-2024 [id number] Start: 01-11-2024 [id number] Start: 01-11-2024 [id number] Start: 01-11-2024 [id number] Start: 01-11-2024 [id number] Start: 01-11-2024 Clinical Notes 12-01-2023 to 03-16-2024 Alhaji Dickinson, [facility] - 03/16/2024 3:00 PM RENE Coon - 03/16/2024 3:00 PM EDNorma Dickinson, [facility] - 02/23/2024 3:00 PM Tylor Damon - [...] 03/16/2024 3:22 PM Patient: Cuate Goodman MR#: [id number] : 1940 Age: 83 y.o. Referring Physician: [...] SUBJECTIVE: Cuate is an established patient of [facility]. Here today for followup. She is now [...] any questions or concerns in the meantime. (DOC:[id number]) I have reviewed the findings of the clinical business support specialist and agree with their assessment. Ave Mackey APRN-MARGARITA Ortho Nurse - Established Patient Intake Room#: 4 01/11/24 ARTHROPLASTY HIP TOTAL AL left Patient arrives with her grandson in her wheelchair. She is an 83 year old female. She has no complaints and is hoping to move to weight bearing status. Date: 03/16/2024 3:22 PM Patient: Cuate Goodman MR#: [id number] : 1940 Age: 83 y.o. Referring Physician: [...] oxycodone, and penicillins. documented in this encounter [facility] 02-23-2024 History of Presen t illness Narrative [...] 02/23/2024 2:58 PM Patient: Cuate Goodman MR#: [id number] : 1940 Age: 83 y.o. Referring Physician: [...] time. All pertinant portions of the clinical business support specialist documentation was reviewed. Paige aDmon I have reviewed the findings of the clinical business support specialist and agree with their assessment. Paige Damon [...] 02/23/2024 2:58 PM Patient: Cuate Goodman MR#: [id number] : 1940 Age: 83 y.o. Referring Physician: [...] oxycodone, and penicillins. documented in this encounter [facility] 02-11-2024 Hospital course Narrative Images from the [...] Dept Phone 02/21/2024 8:45 AM Janet Moreno [facility] Infectious Disease [phone] 02/23/2024 3:00 PM Paige Damon [facility] [phone] documented in this encounter [facility] 02-11-2024 Miscellaneous Notes Patient discharged with all belongings via wheelchair by staff to private residence. Risk Compliance Manager provided patient with AVS. Risk Compliance Manager educated patient on entire AVS, including but not limited to, follow-up appointments, prescriptions, home medications (new, continued, and stopped), next med dose due date and times, discharge activity and diet, and discharge education based on diagnoses. Patient verbalized understanding of all AVS education provided by poem writer. Problem: Adult Inpatient Plan of Care [...] & FWW Patient will demonstrate ability to garbage pick up man object from the floor with supervision and LRAD in order to promote independence in the home and demonstrate functional balance improvements in the rehabilitation program. Supervision with case management assistant & FWW Patient will perform car transfer [...] setting. NT Patient will demonstrate ability to garbage pick up man object from the floor with supervision and LRAD in order to promote independence in the home and demonstrate functional balance improvements in the rehabilitation program. SBA to CGA with case management assistant & FWW Patient will perform car transfer [...] Progressing Report received from ALLY Gomez, shift mgr. Patient up in recliner. Awake but drowsy. [...] Optimal Mobility Outcome: Progressing Patient transferred to [facility]. Does not follow TTWB precautions. Becomes upset [...] alarm in place. documented in this encounter [facility] 02-11-2024 Miscellaneous Notes Patient discharged with all belongings via wheelchair by staff to private residence. Risk Compliance Manager provided patient with AVS. Risk Compliance Manager educated patient on entire AVS, including but not limited to, follow-up appointments, prescriptions, home medications (new, continued, and stopped), next med dose due date and times, discharge activity and diet, and discharge education based on diagnoses. Patient verbalized understanding of all AVS education provided by poem writer. Problem: Adult Inpatient Plan of Care [...] & FWW Patient will demonstrate ability to garbage pick up man object from the floor with supervision and LRAD in order to promote independence in the home and demonstrate functional balance improvements in the rehabilitation program. Supervision with case management assistant & FWW Patient will perform car transfer [...] setting. NT Patient will demonstrate ability to garbage pick up man object from the floor with supervision and LRAD in order to promote independence in the home and demonstrate functional balance improvements in the rehabilitation program. SBA to CGA with case management assistant & FWW Patient will perform car transfer [...] 02/01 to transport her fellow up to [facility]. Dr Gomez rounding on patient. Problem: Adult [...] Progressing Report received from ALLY Gomez, shift mgr. Patient up in recliner. Awake but drowsy. [...] Optimal Mobility Outcome: Progressing Patient transferred to [facility]. Does not follow TTWB precautions. Becomes upset [...] alarm in place. documented in this encounter [facility] 02-11-2024 History of Presen t illness Narrative [...] Date: 01/19/2024 Date of Evaluation: 49:54 PM [facility] LOS: 22 days IMPRESSION AND [...] In process LABS Labs-ABGs Labs-CBC @CBCBRIEFROUNDS@ Labs-Chem 7([facility]) Bun/Creat/Cl/CO2/Glucose: 19/0.80/105/29/97 (02/10 436) Na/K+/Phos/Mg/Ca: 135/4.3/--/--/8.8 [...] bilateral inner thigh areas have improved. 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 Patient was [...] CARE Score - Sit to Stand 5 Chair/Zmd-fq-Ulctb Transfer Assistance Needed Set-up / clean-up;Adaptive equipment Physical Assistance Level No physical assistance CARE Score - Chair/Cqr-zw-Wzprz Transfer 5 Toilet Transfer Assistance Needed Set-up [...] Date: 01/19/2024 Date of Evaluation: 1:47 PM [facility] LOS: 21 days IMPRESSION AND [...] In process LABS Labs-ABGs Labs-CBC @CBCBRIEFROUNDS@ Labs-Chem 7([facility]) Bun/Creat/Cl/CO2/Glucose: 20/0.90/104/28/103 (02/08 449) Na/K+/Phos/Mg/Ca: 135/4.5/--/--/9.1 [...] Date: 01/19/2024 Date of Evaluation: 47:58 PM [facility] LOS: 20 days IMPRESSION AND [...] In process LABS Labs-ABGs Labs-CBC @CBCBRIEFROUNDS@ Labs-Chem 7([facility]) Bun/Creat/Cl/CO2/Glucose: 14/0.80/104/30/96 (02/07 450) Na/K+/Phos/Mg/Ca: 133/4.3/--/--/8.9 [...] Date: 01/19/2024 Date of Evaluation: 1:21 PM [facility] LOS: 19 days IMPRESSION AND [...] a 83 y.o. female was admitted to [facility] for: 1. S/P total left hip arthroplasty 2. Status post total replacement of left hip Nutrition Assessment Subjective assessment / comments: Pt has been admitted to swing bed for strengthening/rehab needs 2/2 s/p hip arthroplasty by Dr. Heredia. Patient with fair oral intakes noted and mentioned to FNS manager life insurance the was getting tired of same menu. [...] (227 lb) 12/01/23 103 kg (227 lb) [place] body weight: 54.7 kg (120 lb 9.5 [...] WBC 5.1 02/07/2024 RBC 3.23 (L) 02/07/2024 [id number] 16.9 01/20/2024 PMH & PSH: Past Medical [...] Transfer Skill: Sit To Stand, Rehab Eval [place] (Sit-Stand Transfers) supervision Physical Assist/Nonphysical Assist: Sit/Stand supervision Weight-Bearing Restrictions: Sit/Stand toe touch weight-bearing Assistive Device For Transfer: Sit/Stand 2 wheeled walker Gait Skills, PT Eval Level of [place]: Gait supervision Physical Assist/Nonphysical Assist: Gait 1 [...] reach. DAILY PROGRESS NOTE Admit Date: 01/19/2024 [facility] LOS: 19 days IMPRESSION AND [...] In process LABS Labs-ABGs Labs-CBC @CBCBRIEFROUNDS@ Labs-Chem 7([facility]) Bun/Creat/Cl/CO2/Glucose: 17/0.80/104/29/100 (02/05 453) Na/K+/Phos/Mg/Ca: 135/4.4/--/--/8.6 [...] to maintain TTWB on LLE pt ambulated [id number] and 75ftx1 with X1 seated rest; pt [...] the wound which is ongoing. 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 No pain reported. No drainage noted. Patient states that she ate very well yesterday as family broad an Alevism food for her. She did have 1 [...] XL 4 mg, 4 mg, Oral, Daily, Mhoan Gomez MD, 4 mg at 02/06/24 0844 [...] In process LABS Labs-ABGs Labs-CBC @CBCBRIEFROUNDS@ Labs-Chem 7([facility]) Bun/Creat/Cl/CO2/Glucose: 14/0.80/104/30/101 (02/04 525) Na/K+/Phos/Mg/Ca: 135/4.3/--/--/8.8 [...] Transfer Skill: Sit To Stand, Rehab Eval [place] (Sit-Stand Transfers) contact guard Physical Assist/Nonphysical Assist: Sit/Stand verbal cues;supervision Transfer Skill: Toilet Transfer, Rehab Eval Assistive Device grab bars;2 wheeled walker Grooming [place] Level (Grooming) grooming skills;hair care, combing/brushing;wash face, hands;contact guard assist (CGA while standing at sink with mod cues to facilitate TTWB.) Physical Assist/Nonphysical Assist supervision;verbal cues Lower Body Dressing Level of [place] contact guard Physical Assist/Nonphysical Assist supervision;verbal cues Assistive Device case management assistant Toileting Level of [place] contact guard Physical Assist/Nonphysical Assist supervision;verbal cues [...] 0 Pt finishing with PRAKASH when this FISH SEINER arrived; FISH SEINER observed pt being increasingly rude and aggravated with PRAKASH; pt asked if she needed a break or if she was willing to work with this FISH SEINER pt stated No! I guess Ill do it now and get it over with but I'm not doing anything that I dont have to; dont ask me to do extra ; therapist asked pt to assist with moving BLE for supine to sit transfer; pt refused to assist and demanded FISH SEINER to move BLE; therapist provided max assist [...] 10 mg, 10 mg, Rectal, Daily PRN, Mohna Gomez MD Cyclobenzaprine (FLEXERIL) tablet 5 mg, [...] DAILY PROGRESS NOTE ] Admit Date: 01/19/2024 [facility] LOS: 17 days IMPRESSION AND [...] In process LABS Labs-ABGs Labs-CBC @CBCBRIEFROUNDS@ Labs-Chem 7([facility]) Bun/Creat/Cl/CO2/Glucose: 18/0.80/104/31/96 (02/03 525) Na/K+/Phos/Mg/Ca: 136/4.4/--/--/8.8 [...] Date: 01/19/2024 Date of Evaluation: 411:05 PM [facility] LOS: 15 days IMPRESSION AND [...] In process LABS Labs-ABGs Labs-CBC @CBCBRIEFROUNDS@ Labs-Chem 7([facility]) Bun/Creat/Cl/CO2/Glucose: 17/0.90/104/29/100 (02/03 552) Na/K+/Phos/Mg/Ca: 135/4.4/--/--/9.1 [...] MaxA+2.Attempted to have pt try using leg police officer although pt stated I can't when asked [...] with SBA-CGA for balance using FWW and case management assistant with set up while seated. Donned underwear using case management assistant while seated and SBA-CGA to don over waist using FWW. CARE Score - Lower Body Dressing 4 Putting On/Taking Off Footwear Assistance Needed Physical assistance Physical Assistance Level Total assistance Comment Declined use of equipment CARE Score - Putting On/Taking Off Footwear 1 Toileting Hygiene Assistance Needed Incidental touching;Adaptive equipment Comment SBA-CGA using FWW CARE Score - Toileting Hygiene 4 Chair/Yne-pu-Bcurm Transfer Assistance Needed Incidental touching;Adaptive equipment Comment SBA-CGA using FWW (initial CGA, as first time standing from chair this AM per pt report) CARE Score - Chair/Auf-ou-Mhlgo Transfer 4 Toilet Transfer Assistance Needed Incidental [...] determination is still pending. Cuate agreeable for long term care social worker to update her once insurance determination is known. CM will continue to follow. MATT Suarez 02/03/2024 8:17 AM DAILY PROGRESS NOTE Admit Date: 01/19/2024 Date of Evaluation: 0:41 PM [facility] LOS: 14 days IMPRESSION AND [...] In process LABS Labs-ABGs Labs-CBC @CBCBRIEFROUNDS@ Labs-Chem 7([facility]) Bun/Creat/Cl/CO2/Glucose: 18/0.90/103/30/103 (02/01 514) Na/K+/Phos/Mg/Ca: 134/4.2/--/--/8.9 [...] Q12H, Mohan Gmoez MD, 5 mg at 02/02/24 08 Docusate [...] Date: 01/19/2024 Date of Evaluation: 49:41 PM [facility] LOS: 13 days IMPRESSION AND [...] CUATE GOODMAN [facility]. Rec. #: [id number] Physician: ERIK HEREDIA Specimen(s) Received Left femoral [...] articular cartilage degeneration. Sectioning reveals unremarkable bone. Catalytic Case Operator sections are submitted in one cassette and placed in decalcification solution prior to processing. Billing Fee Code(s) A: 42648, 57697 WBC (WHITE BLOOD COUNT) 01/12/2024 10.5 3.6 [...] and . LABS Labs-ABGs Labs-CBC @CBCBRIEFROUNDS@ Labs-Chem 7([facility]) Bun/Creat/Cl/CO2/Glucose: 14/0.90/103/28/98 (01/31 434) Na/K+/Phos/Mg/Ca: 133/4.4/--/--/8.9 [...] alarm flashing green and all needs met. SHORE HAND DREDGE OR BARGE made aware pt needs assistance with donning [...] wheeled walker;other (see comment) (Pt used leg police officer for car transfers.) Gait Assessment Gait Comments [...] Assistance Level No physical assistance Comment using case management assistant pt picked up 4 items off the [...] Q12H, Mohan Gomze MD, 5 mg at 02/01/24 0934 bisacodyl [...] 1 tablet, 1 tablet, Oral, Q4H PRN, Moahn Gomez MD, 1 tablet at 02/01/24 1016 [...] DR 40 mg, 40 mg, Oral, Daily, oMhan Gomez MD, 40 mg at 02/01/24933 Polyethylene [...] Date: 01/19/2024 Date of Evaluation: 2:14 AM [facility] LOS: 13 days IMPRESSION AND [...] Patient Name: CUATE GOODMAN Med. Rec. #: [id number] Physician: ERIK HEREDIA Specimen(s) Received Left femoral [...] articular cartilage degeneration. Sectioning reveals unremarkable bone. Catalytic Case Operator sections are submitted in one cassette and placed in decalcification solution prior to processing. Billing Fee Code(s) A: 27098, 11279 WBC (WHITE BLOOD COUNT) 01/12/2024 10.5 3.6 [...] and . LABS Labs-ABGs Labs-CBC @CBCBRIEFROUNDS@ Labs-Chem 7([facility]) Bun/Creat/Cl/CO2/Glucose: 06/18.10/102/33/94 (01/31 612) Na/K+/Phos/Mg/Ca: 134/4.5/--/--/8.7 [...] and treatment transferred to JANN Welch/Karin at [facility] [...] Date: 01/19/2024 Date of Evaluation: :41 PM [facility] LOS: 11 days IMPRESSION AND [...] CUATE GOODMAN [facility]. Rec. #: [id number] Physician: ERIK HEREDIA Specimen(s) Received Left femoral [...] articular cartilage degeneration. Sectioning reveals unremarkable bone. Catalytic Case Operator sections are submitted in one cassette and placed in decalcification solution prior to processing. Billing Fee Code(s) A: 64292, 57790 WBC (WHITE BLOOD COUNT) 01/12/2024 10.5 3.6 [...] and . LABS Labs-ABGs Labs-CBC @CBCBRIEFROUNDS@ Labs-Chem 7(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 She states she is not in any pain today and states her pain is controlled well. She is using Dewitt codone acetaminophen for pain relief as well as Tylenol prn. Her leg is wrapped instead of JOSAFAT hose and she is using Eliquis for DVT preventation. She is following touch down weight bearing protocol. Date: 02/02/2024 11:34 AM Patient: Cuate Goodman MR#: [id number] : 1940 Age: 83 y.o. Referring Physician: [...] 2 tablet 2 tablet Oral Q12H Mohan Gomze MD 2 tablet at 01/30/242043 Tolterodine (DETROL-LA) capsule XL 4 mg 4 mg Oral Daily Mohan Gomez MD 4 mg at 02/02/24 0835 Zolpidem (AMBIEN) tablet 5 mg 5 mg Oral QHS PRN Mhoan Gomez MD 5 mg at 02/01/24 2306 [...] Gomez MD, 5 mg at 02/02/24 0836 [[facility] - Suspended Admission] bisacodyl (DULCOLAX) suppository 10 mg, 10 mg, Rectal, Daily PRN, Mohan Gomez MD [[facility] - Suspended Admission] Cyclobenzaprine (FLEXERIL) tablet 5 mg, 5 mg, Oral, Q12H, Mohan Gomez MD, 5 mg at 02/02/24 0836 [[facility] - Suspended Admission] Docusate (COLACE) capsule 100 mg, 100 mg, Oral, Q12H, Mohan Gomez MD, 100 mg at 02/02/24 0836 [[facility] Hold - Suspended Admission] ferrous sulfate tablet 325 mg, 325 mg, Oral, Daily, Mohan Gomez MD, 325 mg at 02/02/24 0836 [[facility] - Suspended Admission] hydroCODone-acetaminophen (NORCO) 5-325 MG per tablet 1 tablet, 1 tablet, Oral, Q4H PRN, Mohan Gomez MD, 1 tablet at 02/01/24 1016 [Sep - Suspended Admission] hydroCODone-acetaminophen (NORCO) 5-325 MG per tablet 2 tablet, 2 tablet, Oral, Q4H PRN, Mohan Gomez MD, 2 tablet at 02/01/24 2306 [[facility] - Suspended Admission] lactulose (CHRONULAC) oral solution 20 g, 20 g, Oral, TID PRN, Mohan Gomez MD [[facility] - Suspended Admission] Lisinopril (PRINIVIL) tablet 5 mg, 5 mg, Oral, Daily, Mohan Gomez MD, 5 mg at 02/02/24 0835 [[facility] - Suspended Admission] multivitamin tablet 1 tablet, 1 tablet, Oral, Daily, Mohan Gomez MD, 1 tablet at 02/02/24 0835 [[facility] Hold - Suspended Admission] Nystatin (MYCOSTATIN) oral suspension 500,000 Units, 500,000 Units, Swish & Swallow, 4x daily, Janet Moreno MD, 500,000 Units at 02/02/24 0835 [[facility] - Suspended Admission] Ondansetron (ZOFRAN) tablet 4 mg, 4 mg, Oral, Q4H PRN, Mohan Gomez MD, 4 mg at 02/02/24 0840 [[facility] Hold - Suspended Admission] Pantoprazole (PROTONIX) tablet DR 40 mg, 40 mg, Oral, Daily, Mohan Gomez MD, 40 mg at 02/02/24 0836 [[facility] Hold - Suspended Admission] Polyethylene glycol (MIRALAX) packet 17 g, 17 g, Oral, Q12H, Mohan Gomez MD, 17 g at 01/30/242043 [[facility] Hold - Suspended Admission] Polyethylene glycol (MIRALAX) packet 17 g, 17 g, Oral, TID PRN, Mohan Gomez MD [[facility] Hold - Suspended Admission] senna-docusate (SENOKOT-S) 8.6-50 MG per tablet 2 tablet, 2 tablet, Oral, Q12H, Mohan Gomez MD, 2 tablet at 01/30/242043 [[facility] Hold - Suspended Admission] Tolterodine (DETROL-LA) capsule XL 4 mg, 4 mg, Oral, Daily, Mohan Gomez MD, 4 mg at 02/02/2435 [[facility] Hold - Suspended Admission] Zolpidem (AMBIEN) tablet [...] pain today. She is using Tylenol and [place] for pain control and Eliquis for DVT prophylaxis along with JOSAFAT hose. She reports she is anxious to get home. Of note, Dr. Moreno was consulted upon arrival to [facility] due to concerns for SSI [...] arise. All pertinant portions of the clinical business support specialist documentation was reviewed. Paige Damon I have reviewed the findings of the clinical business support specialist and agree with their assessment. 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 She states she is not in any pain today and states her pain is controlled well. She is using Dewitt codone acetaminophen for pain relief as well as Tylenol prn. Her leg is wrapped instead of JOSAFAT hose and she is using Eliquis for DVT preventation. She is following touch down weight bearing protocol. Date: 02/02/2024 11:34 AM Patient: Cuate Goodman MR#: [id number] : 1940 Age: 83 y.o. Referring Physician: Paige Damon Insurance: Payor: MEDICARE [employer] HMO OR PPO / Plan: MEDICARE [employer] PPO / Product Type: *No Product type* [...] 325 mg, 325 mg, Oral, Daily, Mohan Gomze MD, 325 mg at 02/02/24835 [[facility] Hold [...] Gomez MD, 5 mg at 02/02/24 0835 [[facility] Hold - Suspended Admission] multivitamin tablet 1 tablet, 1 tablet, Oral, Daily, Mohan Gomez MD, 1 tablet at 02/02/24 0835 [[facility] Hold - Suspended Admission] Nystatin (MYCOSTATIN) oral suspension 500,000 Units, 500,000 Units, Swish & Swallow, 4x daily, Janet Moreno MD, 500,000 Units at 02/02/24 0835 [[facility] Hold - Suspended Admission] Ondansetron (ZOFRAN) tablet 4 mg, 4 mg, Oral, Q4H PRN, Mohan Gomez MD, 4 mg at 02/02/24 0840 [[facility] Hold - Suspended Admission] Pantoprazole (PROTONIX) tablet DR 40 mg, 40 mg, Oral, Daily, Mohan Gomez MD, 40 mg at 02/02/24 0836 [[facility] Hold - Suspended Admission] Polyethylene glycol (MIRALAX) packet 17 g, 17 g, Oral, Q12H, Mohan Gomez MD, 17 g at 01/30/242043 [[facility] Hold - Suspended Admission] Polyethylene glycol (MIRALAX) packet 17 g, 17 g, Oral, TID PRN, Mohan Gomez MD [[facility] Hold - Suspended Admission] senna-docusate (SENOKOT-S) 8.6-50 MG per tablet 2 tablet, 2 tablet, Oral, Q12H, Mohan Gomez MD, 2 tablet at 01/30/242043 [[facility] Hold - Suspended Admission] Tolterodine (DETROL-LA) capsule XL 4 mg, 4 mg, Oral, Daily, Mohan Gomez MD, 4 mg at 02/02/24 0835 [[facility] Hold - Suspended Admission] Zolpidem (AMBIEN) tablet 5 mg, 5 mg, Oral, QHS PRN, Mohan Gomez MD, 5 mg at 02/01/24 2306 Allergies: She is allergic to morphine, oxycodone, and penicillins. documented in this encounter [facility] 01-21-2024 Consult note Associated Order (s): IP [...] tablet 600 mg, 600 mg, Oral, Q12H, Jnaet Moreno MD, 600 mg at 01/21/24 1208 [...] Janet Moreno MD documented in this encounter [facility] 01-21-2024 Consult note Associated Order (s): IP [...] Janet Moreno MD documented in this encounter [facility] 01-19-2024 History and physical note I saw Cuate Goodman at [facility] Assessment/Plan: 83 y.o. female with [...] CREATSERUM 0.70 01/13/2024 documented in this encounter [facility] 01-19-2024 History and physical note I saw Cuate Goodman at [facility] Assessment/Plan: 83 y.o. female with [...] CREATSERUM 0.70 01/13/2024 documented in this encounter [facility] 01-19-2024 Nurse Note AVS given by ALLY, all questions addressed and pt stated understanding. Assessment unchanged and no complaints. Patient taken to swing bed by [facility] transportation. Per request of swing bed IV in right wrist left in flushed and locked with alcohol cap. Paperwork sent with transport and report given. [facility] 01-19-2024 Miscellaneous Notes AVS given by ALLY, [...] Called report to Nisha HERNANDEZ at [facility]. Transport set up. Problem: Adult Inpatient Plan [...] change noted from previous assessment by this HOISTING ENGINEER unless otherwise detailed in coordinating flow sheets. [...] reach. DEYSI dressing is no longer flashing, poem writer removes it per ortho note. Incision is CDI. Ice pack applied. Remains up in recliner. No change noted from previous assessment by this RN unless otherwise detailed in coordinating flow sheets. PRN ultram given per order for c/o left hip and torso pain. States her dinner order was called in by SHORE HAND DREDGE OR BARGE. Denies additional needs at this time, call [...] insurance approval for the Swing Unit in [place]. Call haddad in hand. Assessment is complete [...] in bed. Assessment remains unchanged from previous. Risk Compliance Manager redresses avril wraps to BLE. Call light [...] this time. Call light is in reach. Risk Compliance Manager reviews charting by Madeleine CANALES, poem writer agrees with charting. Patient complains of [...] and she startled awake. Patient asked for [place] and was told she was not due [...] Call light is in reach. [address] BEVERAGE HOST rounding. He discussed the quality of her bone from in the OR and the slight intraoperative fracture and the strict precautions including global and TDWB resulting ti the need for a SNF on discharge. Cuate extremely addiment I am not going to a penitentiary. I'm going home . Ave explained after [...] Pt c/o 10/10 pain to left hip. [place] given - see MAR. Pt denies any further needs at this time. Call light within reach. Pt assessment remains unchanged with any exceptions noted in flowsheets. Pt is resting in bed, respirations even and unlabored. Fresh ice pack applied to left hip. DEYSI dressing intact and flashing green. Pt c/o 8/10 pain to left hip, [place] given - see MAR. Pt denies any [...] liquid menu with patient. Patient requested lemon la posta soda. Soda given. Encouraged patient to try and rest. Family at the bedside. Safety education given. Call light within reach. Bed alarm set. Abductor pillow in place. Ice pack to Left hip POST OPERATIVE/PROCEDURE NOTE Cuate Goodman 83 y.o. female [id number] SURGEON Surgeons and Role: * Erik Heredia MD - Primary SWITCH TECHNICIAN RENE Monique ANESTHESIOLOGIST FIXTURE RELAMPER: JEFFREY Denny SURGICAL STAFF Doors Prefitter: Shantell Flood, RN; Rebecca Baltazar, RN; Magdalene Gilbert, RN Nurse Practitioner: RENE Monique Chemical Maker: Delores German Scrub Person: SALLY Kilgore; Zari [...] Implant Name Type Inv. Item Serial No. Asian Studies Program Chair Lot No. LRB No. Used Action Emmet Gription Acetabular Shell Sector 52mm OD [employer] [id number] Left 1 Implanted Emmet ALTRX Polyethylene Acetabular Liner Neutral 36mm ID 52mm OD [employer] [id number] Left 1 Implanted Cementralizer Stem Centralizer 10.5mm Cemented [employer] [id number] Left 1 Implanted [place] Femoral Stem 12/14 Taper Cemented Size 5 STD 120mm [employer] [id number] Left 1 Implanted [place] LV 1x40 [id number] Left 1 Implanted [place] LV 1x40 [id number] Left 1 Implanted [place] R 1x40 [id number] Left 1 Implanted Biolox Delta Ceramic Femoral Head +1.5 36mm MERLYN 12/14 Taper [employer] [id number] Left 1 Implanted Suture [place], [employer] Corkscrew FT,Vented with 1.3mm White/blue and white/black suture tape ARTHREX [id number] Left 1 Implanted Ti Trochanteric Reattachment Device w/Cables/Standard-Ster [employer] [id number] Left 1 Implanted SPECIMENS ID Type Source Tests Collected by Time Destination 1 : Left Femoral head Permanent TISSUE SURGICAL PATHOLOGY REQUEST Erik Heredia MD 01/11/[address], [place]AND[place] PULLER-BEVERAGE HOST January 11, 2024 5:48 PM 12/16/23 5989 Information Source Information Source patient Contact Information Performance Improvement Specialist Name Chelsea Menezes RN Living Environment Lives [...] Employment/Financial Employed? Retired Initial Discharge Planning DME (FISH SEINER) Walker (has FWW) CM met with patient this date to discuss post-surgical discharge plans. Patient states that return home with family assist. Patient has wheeled walker. Patient denies any other questions or needs at this time. CM to continue to follow and assist with discharge plans. documented in this encounter [facility] 01-19-2024 Nurse Note Per patients request called and let contact Sonal daughter know her mother is transferring to swing bed. [facility] 01-19-2024 Nurse Note Called report to Nisha HERNANDEZ at swing bed. Transport set up. [facility] 01-19-2024 Plan of care note Problem: Adult [...] Health and Integrity Outcome: Adequate for Discharge [facility] 01-19-2024 Nurse Note No change noted from previous assessment by this HOISTING ENGINEER unless otherwise detailed in coordinating flow sheets. Patient denies any needs at this time. Call light in reach. T [facility] 01-19-2024 Hospital course Narrative Images from the [...] Preop EKG at baseline. Known diastolic dysfunction. Roll Dough Divider did clear her for surgery. She had [...] CUATE GOODMAN [facility]. Rec. #: [id number] Physician: ERIK HEREDIA Specimen(s) Received Left femoral head Clinical / Pre-Operative Diagnosis Osteoarthritis of left hip unspecified osteoarthritis type Post-Operative Diagnosis Not provided Surgical Procedure Arthroplasty hip total latera approach Diagnosis: Left femoral head, Excision: -Consistent with degenerative joint disease Electronically Signed [facility]/01/13/2024 Khoa Vieyra DO Gross Description: The specimen is received in formalin, and labeled left gary stacy, Cuate Goodman and date of 1940. The specimen consists of a femoral head and neck measuring 5.5 x 5 x 5 cm with articular cartilage degeneration. Sectioning reveals unremarkable bone. Catalytic Case Operator sections are submitted in one cassette and placed in decalcification solution prior to processing. Billing Fee Code(s) A: 14919, 86646 HEENT: NC/AT, PERRLA, EOMI, fundi benign, external [...] about: Should I take this medication? Follow-up: [place] [id number] Follow up [facility] Upcoming Appointments (up to five)-Some appointments for Medical Center outpatient clinics or diagnostic testing locations are not displayed below Provider Department Dept Phone 02/02/2024 11:30 AM Paige Damon [facility] [phone] documented in this encounter [facility] 01-19-2024 Nurse Note Talisha Damon CNP updated that patient can be discharged to Swing Bed today. [facility] 01-19-[address] Monte updated that auth came through and pt can be discharged to Swing bed today, No new orders at this time. [facility] 01-19-2024 History of Presen t illness Narrative [...] on commode with use of grab bars. FISH SEINER assisted pt with removing breif and pts gown noted to be wet. SHORE HAND DREDGE OR BARGE called in and assisted pt with gown change. Pt able to void and then pt compelted STS to FWW, Christina x1 and pt able to provide self pericare with this FISH SEINER providing support with no major LOB noted. Pt then ambulated back into room for approx 10ft and pt states beginning to feel a little dizzy and asking to have bedside chair placed behind pt and then pt transfered to sitting in bedside chair. This FISH SEINER supporting L LE while reclining chair and [...] Transfer Skill: Sit To Stand, Rehab Eval [place] (Sit-Stand Transfers) minimum assist (75% patient effort) Physical Assist/Nonphysical Assist: Sit/Stand 1 person assist Weight-Bearing Restrictions: Sit/Stand toe touch weight-bearing Assistive Device For Transfer: Sit/Stand 2 wheeled walker Gait Skills, PT Eval Level of [place]: Gait minimum assist (75% patients effort) Physical Assist/Nonphysical Assist: Gait 1 person assist Weight-Bearing Restrictions: Gait toe touch weight-bearing Assistive Device For Transfer: Gait 2 wheeled walker Gait Distance (10ft x2) Gait Analysis, PT Eval Gait Pattern Used swing-to gait Stair Negotiation [place] Level: Stair Negotiation unable to assess Plan [...] this time to adminster medication and this FISH SEINER assisted pt with placing ice pack on [...] that social work has reached out to [facility] to see progress on auth. Will update [...] standing to FWW with Christina x1 and SHORE HAND DREDGE OR BARGE providing pt with pericare and placing new brief and purewick catheter. Pt then ambulated approx 8ft out of bathroom and states that she would need the chair placed behind her d/t fatigue. Chair placed behind pt and pt transfered to seated position. MAxA x2 for repositoining pt further back into chair. SCD placed on L LE and ice pack applied to L hip.[place] rolled placed on lateral side of L LE to promote proper positoining to follow global hip precautions. Pt states feeling very comfortable in this position. Call light left within reach at end of therapy session. Transfer Skill: Sit To Stand, Rehab Eval [place] (Sit-Stand Transfers) minimum assist (75% patient effort) Physical Assist/Nonphysical Assist: Sit/Stand 1 person assist Weight-Bearing Restrictions: Sit/Stand toe touch weight-bearing Assistive Device For Transfer: Sit/Stand 2 wheeled walker Gait Skills, PT Eval Level of [place]: Gait minimum assist (75% patients effort) Physical Assist/Nonphysical Assist: Gait 1 person assist Weight-Bearing Restrictions: Gait toe touch weight-bearing Assistive Device For Transfer: Gait 2 wheeled walker Gait Distance (25ft, 10ft, 8ft) Stair Negotiation [place] Level: Stair Negotiation unable to assess Plan [...] Transfer Skill: Sit To Stand, Rehab Eval [place] (Sit-Stand Transfers) moderate assist (50% patient effort) Physical Assist/Nonphysical Assist: Sit/Stand 1 person assist Weight-Bearing Restrictions: Sit/Stand toe touch weight-bearing Assistive Device For Transfer: Sit/Stand 2 wheeled walker Gait Skills, PT Eval Level of [place]: Gait (Patient refuses to attempt due to [...] time preferred Lower Body Dressing Level of [place] (declned to complete) Clinical Impression Co-evaluation/co-treatment performed? No simultaneous skilled care performed Patient Instruction/Education comments continued education to ensure safe ADL participation and functional transfers; HEP Therapy Frequency 6 times a week (frequency change due to patient making good progress towards goals and awaiting placement for rehab prior to dc home) Therapist Information License # [id number] 01/15/24 0955 Time In/Out Time In 0955 [...] Transfer Skill: Sit To Stand, Rehab Eval [place] (Sit-Stand Transfers) minimum assist (75% patient effort) Physical Assist/Nonphysical Assist: Sit/Stand 1 person assist Weight-Bearing Restrictions: Sit/Stand toe touch weight-bearing Assistive Device For Transfer: Sit/Stand 2 wheeled walker Gait Skills, PT Eval Level of [place]: Gait minimum assist (75% patients effort) Physical [...] on global hip precautions Maintain frequency yes CLIENT CONSULTANT spoke with Swing Bed. Insurance authorization still pending. CLIENT CONSULTANT met with patient and son, questions answered. CLIENT CONSULTANT to follow. 01/14/24 0830 Time In/Out Time [...] Pt with extended time on commode with SHORE HAND DREDGE OR BARGE providing pt with changing purewick and changing [...] Transfer Skill: Sit To Stand, Rehab Eval [place] (Sit-Stand Transfers) minimum assist (75% patient effort) Physical Assist/Nonphysical Assist: Sit/Stand 1 person assist Weight-Bearing Restrictions: Sit/Stand toe touch weight-bearing Assistive Device For Transfer: Sit/Stand 2 wheeled walker Gait Skills, PT Eval Level of [place]: Gait minimum assist (75% patients effort) Physical Assist/Nonphysical Assist: Gait 1 person assist Weight-Bearing Restrictions: Gait toe touch weight-bearing Assistive Device For Transfer: Gait 2 wheeled walker Gait Distance (10ft x2) Gait Analysis, PT Eval Gait Pattern Used swing-to gait Stair Negotiation [place] Level: Stair Negotiation unable to assess Plan [...] with Christina x2 with pt using leg police officer on L LE with good technique demonstrated [...] Supine to Sit, Rehab Eval Level of [place]: Supine/Sit minimum assist (75% patients effort) (leg police officer on L LE) Physical Assist/Nonphysical Assist: Supine/Sit 2 person assist Transfer Skill: Sit To Stand, Rehab Eval [place] (Sit-Stand Transfers) minimum assist (75% patient effort) Physical Assist/Nonphysical Assist: Sit/Stand 2 person assist Weight-Bearing Restrictions: Sit/Stand toe touch weight-bearing Assistive Device For Transfer: Sit/Stand 2 wheeled walker Gait Skills, PT Eval Level of [place]: Gait minimum assist (75% patients effort) Physical Assist/Nonphysical Assist: Gait 2 person assist Weight-Bearing Restrictions: Gait toe touch weight-bearing Assistive Device For Transfer: Gait 2 wheeled walker Gait Distance 5 feet (chair to bed) Gait Analysis, PT Eval Gait Pattern Used swing-to gait Stair Negotiation [place] Level: Stair Negotiation unable to assess Plan [...] Sit to Supine, Rehab Eval Level of [place]: Sit/Supine maximum assist (25% patients effort) Physical Assist/Nonphysical Assist: Sit/Supine 2 person assist Transfer Skill: Sit To Stand, Rehab Eval [place] (Sit-Stand Transfers) minimum assist (75% patient effort) Physical Assist/Nonphysical Assist: Sit/Stand 2 person assist Weight-Bearing Restrictions: Sit/Stand toe touch weight-bearing Assistive Device For Transfer: Sit/Stand standard walker Gait Skills, PT Eval Level of [place]: Gait minimum assist (75% patients effort) Physical [...] to progress overall mobility Patient referral to [place] was faxed, waiting on that swing bed in [place] called and has a bed open, spoke [...] Orders Procedures DIET REGULAR Please provide one [place] Ensure Max over ice at 1430 daily [...] swing bed, no beds available , contacted [facility] per patients request and no beds available there. Daughter ten did recommend the [facility] in [facility], I did reach out to them [...] Laterality: Left; Surgeon: Erik Heredia MD; Location: [facility] OR NEPHRECTOMY Right 1976 CHOLECYSTECTOMY HIP [...] Supine to Sit, Rehab Eval Level of [place]: Supine/Sit moderate assist (50% patients effort) Physical Assist/Nonphysical Assist: Supine/Sit 1 person assist Transfer Skill: Sit To Stand, Rehab Eval [place] (Sit-Stand Transfers) moderate assist (50% patient effort) Physical Assist/Nonphysical Assist: Sit/Stand 2 person assist Weight-Bearing Restrictions: Sit/Stand toe touch weight-bearing Assistive Device For Transfer: Sit/Stand standard walker Gait Skills, PT Eval Level of [place]: Gait minimum assist (75% patients effort) Physical [...] educated on hip precautions, use of leg police officer and weight bearing status. Pt educated to [...] Muscle Testing (MMT) Dominant Hand right Hand Associate Relations Specialist, Right moderate Hand Associate Relations Specialist, Left moderate Bed Mobility Skill: Supine to Sit, Rehab Eval Level of [place]: Supine/Sit minimum assist (75% patients effort) Physical Assist/Nonphysical Assist: Supine/Sit 1 person assist Transfer Skill: Sit to Stand, Rehab Eval Level of [place]: Sit/Stand moderate assist (50% patients effort) Physical Assist/Nonphysical Assist: Sit/Stand 2 person assist Weight-Bearing Restrictions: Sit/Stand toe touch weight-bearing Assistive Device for Transfer: Sit/Stand standard walker Transfer Skill: Toilet Transfer, Rehab Eval Assistive Device standard walker BADL Evaluation Additional Documentation Yes Upper Body Dressing Level of [place] minimum assist (75% patients effort) Lower Body Dressing Level of [place] (refused to practice) Toileting Level of [place] (refused, reports wanting to use purwick only) Grooming [place] Level (Grooming) grooming skills;wash face, hands;set up [...] sit min A x1 person, with leg police officer and head of bead elevated. Pt able [...] and functional transfers Therapist Information License # [id number] Pt will complete LB dressing with min [...] WITH DR HEREDIA. documented in this encounter [facility] 01-19-2024 Nurse Note Patient resting in bed. Assessment remains unchanged from previous. Call light is within reach. [facility] Note Pt resting in the chair. Assessment remains unchanged from previous. Pt's SPO2 is 84% on room air, so patient is put on 2L nasal cannula and SPO2 is now 90%. Call light is within reach. [facility] Nurse Note DEYSI dressing is no longer flashing, poem writer removes it per ortho note. Incision is CDI. Ice pack applied. [facility] 01-18-2024 Nurse Note Remains up in recliner. No change noted from previous assessment by this RN unless otherwise detailed in coordinating flow sheets. PRN ultram given per order for c/o left hip and torso pain. States her dinner order was called in by SHORE HAND DREDGE OR BARGE. Denies additional needs at this time, call light in reach, recliner wheels locked. [facility] 01-18-2024 Plan of care note Problem: Adult Inpatient Plan of Care Goal: Plan of Care Review Outcome: Progressing Goal: Patient-Specific Goal (Individualized) Outcome: Progressing Goal: Absence of Hospital-Acquired Illness or Injury Outcome: Progressing Goal: Optimal Comfort and Wellbeing Outcome: Progressing Goal: Readiness for Transition of Care Outcome: Progressing Problem: Skin Injury Risk Increased Goal: Skin Health and Integrity Outcome: Progressing [facility] 01-18-2024 Nurse Note Remains up in recliner. No change noted from previous assessment by this RN unless otherwise detailed in coordinating flow sheets. Denies additional needs at this time, call light in reach, recliner wheels locked. [facility] 01-18-2024 Consult note Formatting of th is note is different from the original. Medical consultation Patient is a week postop total hip arthroplasty. No new complaints. Pain is adequately controlled. Therapy is progressing. Awaiting approval from insurance for swing bed. Known right bundle branch block. Preop EKG at baseline. Known diastolic dysfunction. Roll Dough Divider did clear her for surgery. She had [...] CUATE GOODMAN [facility]. Rec. #: [id number] Physician: ERIK HEREDIA Specimen(s) Received Left femoral [...] articular cartilage degeneration. Sectioning reveals unremarkable bone. Catalytic Case Operator sections are submitted in one cassette and placed in decalcification solution prior to processing. Billing Fee Code(s) A: 41611, 14184 HEENT: NC/AT, PERRLA, EOMI, fundi benign, external [...] minutes total time. Luis Monte MD 01/18/2024 [facility] 01-18-2024 Consult note Formatting of th is note is different from the original. Medical consultation Patient is a week postop total hip arthroplasty. No new complaints. Pain is adequately controlled. Therapy is progressing. Awaiting approval from insurance for swing bed. Known right bundle branch block. Preop EKG at baseline. Known diastolic dysfunction. Roll Dough Divider did clear her for surgery. She had [...] Patient Name: CUATE GOODMAN Med. Rec. #: [id number] Physician: ERIK HEREDIA Specimen(s) Received Left femoral [...] articular cartilage degeneration. Sectioning reveals unremarkable bone. Catalytic Case Operator sections are submitted in one cassette and placed in decalcification solution prior to processing. Billing Fee Code(s) A: 04650, [id number] HEENT: NC/AT, PERRLA, EOMI, fundi benign, external [...] Preop EKG at baseline. Known diastolic dysfunction. Roll Dough Divider did clear her for surgery. She had [...] CUATE GOODMAN [facility]. Rec. #: [id number] Physician: ERIK HEREDIA Specimen(s) Received Left femoral [...] articular cartilage degeneration. Sectioning reveals unremarkable bone. Catalytic Case Operator sections are submitted in one cassette and placed in decalcification solution prior to processing. Billing Fee Code(s) A: 27463, 63612 HEENT: NC/AT, PERRLA, EOMI, fundi benign, external [...] Preop EKG at baseline. Known diastolic dysfunction. Roll Dough Divider did clear her for surgery. She had [...] Preop EKG at baseline. Known diastolic dysfunction. Roll Dough Divider did clear her for surgery. She had [...] optimized by her primary care provider and patrol supervisor. Preop testing notable for an INR of [...] Preop EKG at baseline. Known diastolic dysfunction. Roll Dough Divider did clear her for surgery. She had [...] Partner Violence: Unknown (09/09/2023) Received from [facility] Safety [facility] Environment Fear of Current [...] Monte MD 01/11/2024 documented in this encounter [facility] 01-18-2024 Nurse Note Laying in recliner upon this RN arrival to patient room, resting quietly with eyes closed, respirations even and unlabored. Arouses easily to voice, appropriate to conversation. Shift assessment initiated, detailed in coordinating flow sheets. Denies additional needs at this time, call light in reach, recliner wheels locked. [facility] 01-18-2024 Plan of care note Problem: Adult Inpatient Plan of Care Goal: Plan of Care Review Outcome: Progressing Goal: Patient-Specific Goal (Individualized) Outcome: Progressing Goal: Absence of Hospital-Acquired Illness or Injury Outcome: Progressing Goal: Optimal Comfort and Wellbeing Outcome: Progressing Goal: Readiness for Transition of Care Outcome: Progressing Problem: Skin Injury Risk Increased Goal: Skin Health and Integrity Outcome: Progressing [facility] 01-18-2024 Nurse Note Patient's assessment remains unchanged from previous assessment this shift, any exceptions noted in flowsheets. Patient resting comfortably in chair, declines any needs at this time. Call light within reach,chair alarm active [facility] 01-17-2024 Consult note Formatting of th [...] Preop EKG at baseline. Known diastolic dysfunction. Roll Dough Divider did clear her for surgery. She had [...] CUATE GOODMAN [facility]. Rec. #: [id number] Physician: ERIK HEREDIA Specimen(s) Received Left femoral [...] articular cartilage degeneration. Sectioning reveals unremarkable bone. Catalytic Case Operator sections are submitted in one cassette and placed in decalcification solution prior to processing. Billing Fee Code(s) A: 17543, 02725 HEENT: NC/AT, PERRLA, EOMI, fundi benign, external [...] minutes total time. Luis Monte MD 01/17/2024 [facility] 01-17-2024 Nurse Note The top of the right foot is no longer red. Cuate has brisk cap refill on both lower extremities. An avril wrap was applied to Cuate right lower extremity from the toes to her knee. She is currently denying pain. She is watching TV and is pleasant. She is still awaiting insurance approval for the Swing Unit in [place]. Call haddad in hand. [facility] 01-17-2024 Nurse Note Assessment is complete and remains unchanged from previous at this time with any exceptions noted in the flowsheet. Patient denies further needs and is left with call light and personals in reach. [facility] 01-17-2024 Nurse Note Assessment is complete and remains unchanged from previous at this time with any exceptions noted in the flowsheet. Patient denies further needs and is left with call light and personals in reach. [facility] 01-17-2024 Nurse Note Resting in chair. Assessment unchanged from earlier. Call light in reach. [facility] 01-16-2024 Nurse Note Patient remains resting in recliner chair beside of bed. Voices no needs. Was medicated earlier for pain. Assessment unchanged from previous. Ice maintained to left hip. Call light in reach. [facility] 01-16-2024 Plan of care note Problem: [...] rest periods promoted Nutrition Interventions: diet adjusted [facility] 01-16-2024 Nurse Note Afternoon assessment completed. No changes noted. Patient resting with no complaints. Call light and phone within reach. [facility] 01-16-2024 Nurse Note No change noted from previous assessment by this RN unless otherwise detailed in coordinating flow sheets. Patient denies any needs at this time. [facility] 01-16-2024 Nurse Note Assessment unchanged from prior unless otherwise charted. Patient resting in bed, call light within reach, Up In Chair, Patient denies any current needs at this time. [facility] 01-15-2024 Plan of care note Problem: [...] rest periods promoted Nutrition Interventions: diet adjusted [facility] 01-15-2024 Nurse Note Afternoon assessment completed. No changes noted. Patient resting in the chair with no complaints. Call light and phone within reach. [facility] 01-15-2024 Nurse Note No change noted from previous assessment by this RN unless otherwise detailed in coordinating flow sheets. Patient denies any needs at this time. [facility] 01-15-2024 Nurse Note Pt assessment remains [...] at this time. Call light within reach. [facility] 01-15-2024 Nurse Note Pt assessment remains unchanged with any exceptions noted in flowsheets. Pt appears to be sleeping, respirations even and unlabored. Call light within reach. [facility] 01-14-2024 Nurse Note Pt assessment complete and documented in flowsheets. POC reviewed with pt. Pt is alert, respirations even and unlabored. No acute distress observed. Fresh ice pack applied to left hip. DEYSI dressing intact and flashing green. Pt c/o 8 pain to left hip. Tramadol given - see MAR. Pt denies any further needs at this time. Call light within reach. [facility] 01-14-2024 Plan of care note Problem: [...] rest periods promoted Nutrition Interventions: diet adjusted [facility] 01-14-2024 Nurse Note Afternoon assessment completed. No changes noted. Patient resting with no complaints. Call light and phone within reach. [facility] 01-14-2024 Nurse Note No change noted from previous assessment by this RN unless otherwise detailed in coordinating flow sheets. Patient denies any needs at this time. [facility] 01-14-2024 Nurse Note Pt resting in chair. Assessment remains unchanged from previous. Call light is within reach, SCDs are on. [facility] 01-14-2024 Nurse Note Pt resting in bed. Assessment remains unchanged from previous. Risk Compliance Manager redresses avril wraps to BLE. Call light is within reach and bed alarm is on. [facility] 01-13-2024 Nurse Note Updates given to daughter Sonal. She denies any questions or concerns. [facility] 01-13-2024 Consult note Formatting of th [...] Preop EKG at baseline. Known diastolic dysfunction. Roll Dough Divider did clear her for surgery. She had [...] minutes total time. Luis Monte MD 01/13/2024 [facility] 01-13-2024 Nurse Note No changes noted from previous assessment by this RN except what is detailed in coordinating flow sheets. Patient denies needs at this time. Call light is in reach. [facility] 01-13-2024 Nurse Note Patient denies any pain at this time. Patient denies need for pain medication and states she will call whenever she needs them. Med ULLOA at bedside. No changes noted from previous assessment by this RN except what is detailed in coordinating flow sheets. Patient denies needs at this time. Call light is in reach. [facility] 01-13-2024 Nurse Note Voicemail left for [...] this time. Call light is in reach. [facility] 01-13-2024 Nurse Note Risk Compliance Manager reviews charting by Madeleine CANALES, poem writer agrees with charting. [facility] 01-13-2024 Nurse Note Patient complains of chest pain she describes it as pressure that is moving left. She states it feels like how it fells when I get indigestion . Dr. Monte notified. New orders received. [facility] 01-13-2024 Nurse Note Reassessment complete at this time and remains unchanged from previous. Patient states I slept really well last night. I think the Tramadol helped a lot. Patient rates pain 5/10 and 8/10 with spasms, movement. Patient DEYSI flashing green. Patient denies further needs and is left with call light and personals within reach. [facility] 01-13-2024 Nurse Note Reassessment complete at this time. Patient states Pain is much better. Patient denies any further needs and is left with call light and personals within reach. [facility] 01-12-2024 Consult note Formatting of th [...] Preop EKG at baseline. Known diastolic dysfunction. Roll Dough Divider did clear her for surgery. She had [...] minutes total time. Luis Monte MD 01/12/2024 [facility] 01-12-2024 Nurse Note Assessment complete at this time with any exceptions noted in the flowsheets. Patient was snoring upon this nurse entering the room. Patient did not awaken to verbal stimulation. This nurse touched patients arm in an attempt to awaken her. Patient was still snoring. This nurse rubbed patient and she startled awake. Patient asked for [place] and was told she was not due for two more hours. Patient agreeable to wait. Patient denies further needs and is left with call light and personals within reach. [facility] 01-12-2024 Nurse Note Patient son's Mat at bedside at this time. This RN questioned if the patient would like PRN pain medication, patient states I'll call you when I want them . Denies needs at this time, call light within reach. [facility] 01-12-2024 Nurse Note No changes noted from previous assessment by this RN except what is detailed in coordinating flow sheets. Patient denies needs at this time. Call light is in reach. [facility] 01-12-2024 Nurse Note Bilaterally AVRIL wrap applied to lower legs with MARY Mcgee at this time per Randell AVILA. [facility] 01-12-2024 Hospital Discharg e instructions Katlyn Zimmer [...] PM EDT Dr. Heredia's office number is [phone], option #2 for the nurse. If after hours, please contact the main hospital number, and ask for Dr. Heredia's on-call provider. Contact Office ([phone]) if: > Any falls or injuries > [...] be sent through Care Everywhere.acetaminophen and hydrocodone (Armenian)acetaminophen (oral) (Armenian)docusate (oral/rectal) (Armenian)apixaban (Armenian)Blood Thinners: How to Prevent Bleeding ([facility]) (Armenian)documented in this encounter [facility] 01-12-2024 Nurse Note No changes noted from previous assessment by this RN except what is detailed in coordinating flow sheets. Patient denies needs at this time. Call light is in reach. [facility] 01-12-[address] Mackey BEVERAGE HOST rounding. He discussed the quality of her bone from in the OR and the slight intraoperative fracture and the strict precautions including global and TDWB resulting ti the need for a SNF on discharge. Cuate extremely addiment I am not going to a penitentiary. I'm going home . Ave explained after PT/OT evaluation today we might to had an additional conversation. Cuate looks to be upset over this visit at this time. The plan for nursing will be to now allow PT/OT to evaluate and clear explain options on discharge. [facility] 01-12-2024 Nurse Note Pt assessment remains unchanged with any exceptions noted in flowsheets. Pt is resting in bed, respirations even and unlabored. Fresh ice pack applied to left hip. DEYSI dressing intact and flashing green. Pt c/o 10/10 pain to left hip. [place] given - see MAR. Pt denies any further needs at this time. Call light within reach. [facility] 01-11-2024 Nurse Note Pt assessment remains unchanged with any exceptions noted in flowsheets. Pt is resting in bed, respirations even and unlabored. Fresh ice pack applied to left hip. DEYSI dressing intact and flashing green. Pt c/o 8/10 pain to left hip, [place] given - see MAR. Pt denies any further needs at this time. Call light within reach. [facility] 01-11-2024 Nurse Note Pt assessment complete and [...] at this time. Call light within reach. [facility] 01-11-2024 Progress note Formatting of t his note might be different from the original. Pt nauseated at this time IS not done RN aware and will give medication for nausea and then instruct pt. [facility] 01-11-2024 Consult note Associated Order (s): IP CONSULT TO GENERAL MEDICINE Medical consultation Patient is an 83-year-old female who presents for total hip arthroplasty. She was at her baseline state of health prior to surgery and was medically optimized by her primary care provider and patrol supervisor. Preop testing notable for an INR of [...] Preop EKG at baseline. Known diastolic dysfunction. Roll Dough Divider did clear her for surgery. She had [...] Partner Violence: Unknown (09/09/2023) Received from [facility] Fear of [...] minutes total time. Luis Monte MD 01/11/2024 [facility] 01-11-2024 Nurse Note Patient returned to [...] liquid menu with patient. Patient requested lemon la posta soda. Soda given. Encouraged patient to try and rest. Family at the bedside. Safety education given. Call light within reach. Bed alarm set. [facility] 01-11-2024 Nurse Note Abductor pillow in place. Ice pack to Left hip [facility] 01-11-2024 Nurse Note Patient transported to PACU with Chava PATHAK. Reports given to Nely HERNANDEZ at 1759H. OR 4 temp 67.2F, humidity 40% documented in this encounter [facility] 01-11-2024 Nurse Surgical operation note Patient transported to PACU with Chava PATHAK. Reports given to Nely HERNANDEZ at 1759H. [facility] 01-11-2024 Surgery Postoperative evaluation and management note POST OPERATIVE/PROCEDURE NOTE Cuate Goodman 83 y.o. female [id number] SURGEON Surgeons and Role: * Erik Heredia MD - Primary SWITCH TECHNICIAN Ave Mackey APRN-MARGARITA ANESTHESIOLOGIST FIXTURE RELAMPER: Chava Linares APRN-ZO SURGICAL STAFF Doors Prefitter: Shantell Flood RN; Rebecca Baltazar RN; Magdalene Gilbert RN Nurse Practitioner: RENE Monique Chemical Maker: Delores German Scrub Person: Jolene Sanchez, SALLY; [...] Implant Name Type Inv. Item Serial No. Asian Studies Program Chair Lot No. LRB No. Used Action Emmet Gription Acetabular Shell Sector 52mm OD [employer] [id number] Left 1 Implanted Emmet ALTRX Polyethylene Acetabular Liner Neutral 36mm ID 52mm OD [employer] [id number] Left 1 Implanted Cementralizer Stem Centralizer 10.5mm Cemented [employer] [id number] Left 1 Implanted [place] Femoral Stem 12/14 Taper Cemented Size 5 STD 120mm [employer] [id number] Left 1 Implanted [place] LV 1x40 [id number] Left 1 Implanted [place] LV 1x40 [id number] Left 1 Implanted [place] R 1x40 [id number] Left 1 Implanted Biolox Delta Ceramic Femoral Head +1.5 36mm MERLYN 12/14 Taper [employer] [id number] Left 1 Implanted Suture [place], [employer] Corkscrew FT,Vented with 1.3mm White/blue and white/black suture tape ARTHREX [id number] Left 1 Implanted Ti Trochanteric Reattachment Device w/Cables/Standard-Ster [employer] [id number] Left 1 Implanted SPECIMENS ID Type Source Tests Collected by Time Destination 1 : Left Femoral head Permanent TISSUE SURGICAL PATHOLOGY REQUEST Erik Heredia MD 01/11/2024 1610 RENE Monique January 11, 2024 5:48 PM [facility] 01-11-2024 Nurse Surgical operation note OR 4 temp 67.2F, humidity 40% T [facility] 01-11-2024 Note Shantell Dasilva RN 01/10 12:34 [...] and locked. [X] Tray table within reach. [facility] 01-11-2024 Procedure note Associated Ord er(s): GENERAL [...] locked. [X] Tray table within reach. T [facility] 01-11-2024 Procedure note Associated Ord er(s): GENERAL [...] table within reach. documented in this encounter [facility] 12-22-2023 Note [facility] Note [...] bundle branch block. Echocardiographic study 11/19/2022 at [facility] Normal left ventricle systolic function, ejection fraction 50 to 55%, abnormal septal motion, diastolic function is indeterminate Right ventricle appears enlarged with preserved systolic function Mild mitral regurgitation Mild tricuspid rotation Moderately elevated right-sided pressure Mildly dilated ascending aorta 4.21 cm Echo 05/17/2020 at [facility] Normal left ventricle systolic function, ejection fraction above 55% Grade 2 diastolic dysfunction Mild mitral rotation Lexiscan nuclear stress test 05/15/2020 at [facility] No acute or reversible ischemia Small anterior wall fixed defect versus breast attenuation artifact Normal wall motion and ejection fraction 65%. Thank you Chest CTA 11/09/2022 at [facility] Small pulmonary embolus w (more content not included)... [facility] 12-16-2023 Nurse Note 12/16/23 6945 Information Source Information Source patient Contact Information Performance Improvement Specialist Name Chelsea Menezes RN Living Environment Lives [...] Employment/Financial Employed? 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 Patient states that return home with family assist. Patient has wheeled walker. Patient denies any other questions or needs at this time. CM to continue to follow and assist with discharge plans. [facility] 12-01-2023 History of Presen t illness Narrative [...] 12/01/2023 2:14 PM Patient: Cuate Goodman MR#: [id number] : 1940 Age: 83 y.o. Referring Physician: Truman Boo Jr., DO Insurance: Payor: MEDICARE AET[employer] HMO OR PPO / Plan: MEDICARE [employer] PPO / Product Type: *No Product type* [...] total hip arthroplasty for optimal long term acute care registered nurse management. PHYSICAL EXAM: This is an alert, [...] joint space, subchondral sclerosis, osteophyte formation, and [id number]-md-rtnc contact. IMPRESSION: 1.) Severe symptomatic end-stage arthritis, [...] of limb, and ultimately loss of life. custodial expectations, risks and general implant survivorship were also discussed. Despite these risks, the patient would like to proceed with surgical planning. Today, we will initiate the pre-surgical process including nasal MRSA screening, scheduling an appointment for [facility] and the potential surgical date, and reviewing [...] Unknown Penicillins Hives documented in this encounter [facility] Evaluation note Diagnosis Pain of left hip- Primary Osteoarthritis of left hip, unspecified osteoarthritis type [facility] Diagnosis S/P total hip arthroplasty- Primary Hip joint replacement by other means Preop testing Preoperative examination, unspecified Pain in other specified joint Osteoarthritis of left hip, unspecified osteoarthritis type Acute postoperative pain of left hip Status post total replacement of left hip [facility] Diagnosis S/P total left hip arthroplasty- Primary [facility] Diagnosis S/P total left hip arthroplasty- Primary S/P total left hip arthroplasty 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 Acquired absence of kidney [facility] Diagnosis S/P total left hip arthroplasty- Primary S/P total left hip arthroplasty 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 Acquired absence of kidney [facility] Diagnosis S/P total left hip arthroplasty- Primary [facility] Diagnosis Primary osteoarthritis of left hip- Primary Primary localized osteoarthrosis, pelvic region and thigh documented in this encounter [facility] Summary Purpose Family History No Family History [...] HIP WITH PELVIS LEFT Erik Heredia MD [address] [place] [id number] Referral ID Status Reason Start Date Expiration Date V isits Requested Visits Authorized [id number] New Request 11/19/2023 12/13/2024 1 1 Specialty Diagnoses / Procedures Referred By Abiodun t Referred To Contact Procedures ECG Luis Monte MD [address] [place] [address] Referral ID Status Reason Start Date Expiration Date V isits Requested Visits Authorized [id number] New Request 01/13/2024 02/06/2025 1 1 Specialty Diagnoses / Procedures Referred By Contac t Referred To Contact [facility] REV LOC [address] [place] [address] Referral ID Status Reason Start Date Expiration Date Visits Re quested Visits Authorized Specialty Diagnoses / Procedures Referred By Contac t Referred To Contact Diagnoses S/P total left hip arthroplasty Procedures XR HIP WITH PELVIS LEFT Tonya Paige M [address] [place] [address] Referral ID Status Reason Start Date Expiration Date V isits Requested Visits Authorized [id number] New Request 01/26/2024 02/19/2025 1 1 Referral ID Status Reason Start Date Expiration Date V isits Requested Visits Authorized [id number] New Request 02/17/2024 03/13/2025 1 1 Additional Source Comments INFORMATION SOURCE (unrecogn ized section and content) DATE CREATED AUTHOR 11/20/2022 [facility] DATE CREATED AUTHOR AUTHOR'S ORGANIZ ATION 09/19/2023 [facility] DATE CREATED AUTHOR AUTHOR'S ORGANIZ ATION 11/07/2023 [facility] EPIC DATE CREATED AUTHOR AUTHOR'S ORGANIZ ATION 01/10/2024 [facility] DATE CREATED AUTHOR AUTHOR'S ORGANIZ ATION [facility] DATE CREATED AUTHOR AUTHOR'S ORGANIZ ATION 03/20/2024 [facility] Reason for Visit (unrecogniz ed section and content) Specialty Diagnoses / Procedures Referred By Contac t Referred To Contact Diagnoses Pain of left hip Procedures XR HIP WITH PELVIS LEFT Erik Heredia MD [address] [place] [address] Referral ID Status Reason Start Date Expiration Date V isits Requested Visits Authorized [id number] New Request 11/19/2023 12/13/2024 1 1 Reason Comments Pain Specialty Diagnoses / Procedures Referred By Contac t Referred To Contact Diagnoses Osteoarthritis of left hip, unspecified osteoarthritis type Osteoarthritis of left hip, unspecified osteoarthritis type [M16.12] Procedures ND ARTHRP ACETBLR/PROX FEM PROSTC AGRFT/ALGRFT ARTHROPLASTY HIP TOTAL LATERAL APPROACH Erik Heredia MD [address] [place] [address] Referral ID Status Reason Start Date Expiration Date Visits Re quested Visits Authorized [id number] 12/06/2023 1 1 Reason Comments Surgical Follow-up 01/11/24 [facility]-AL Specialty Diagnoses / Procedures Referred By Contac t Referred To Contact Diagnoses S/P total left hip arthroplasty Procedures XR HIP WITH PELVIS LEFT Paige Damon [address] [place] [address] Referral ID Status Reason Start Date Expiration Date V isits Requested Visits Authorized [id number] New Request 01/26/2024 02/19/2025 1 1 Referral ID Status Reason Start Date Expiration Date V isits Requested Visits Authorized [id number] New Request 02/17/2024 03/13/2025 1 1 Reason Comments Post Op Visit 01/11/24 Weight beari ng check left total hip arthroplasty Post Op Visit Specialty Diagnoses / Procedures Referred By Abiodun t Referred To Contact Diagnoses Hx of total hip arthroplasty, left Procedures XR HIP WITH PELVIS LEFT Ave Mackey APRN-CNP [address] [place] [address] Referral ID Status Reason Start Date Expiration Date V isits Requested Visits Authorized [id number] New Request 03/07/2024 04/01/2025 1 1 Reason Comments Pain Care Teams (unrecognized sec tion and content) Supervisor Color Paste Mixing Relationship Specialty Start Date End Date Truman Boo Jr., DO [address] [facility] [address] [place] [address] PCP - General Orthopaedic Surgery 11/04/23 Supervisor Color Paste Mixing Relationship Specialty Start Date End Date Truman Boo Jr., DO [address] [place] [address] [place] [address] PCP - General Orthopaedic Surgery 11/04/23 12/02/23 Supervisor Color Paste Mixing Relationship Specialty Start Date End Date Jacob Kuhnbrenda [address] [place] [address] PCP - General Family Medicine 12/03/23 Supervisor Color Paste Mixing Relationship Specialty Start Date End Date KuhnTian [address] [place] [address] PCP - General Family Medicine 12/03/23 Supervisor Color Paste Mixing Relationship Specialty Start Date End Date KuhnJacob herrerabrenda [address] [place] [address] PCP - General Family Medicine 12/03/23 Supervisor Color Paste Mixing Relationship Specialty Start Date End Date Jacob Kuhnbrenda [address] [place] [address] PCP - General Family Medicine 12/03/23 Supervisor Color Paste Mixing Relationship Specialty Start Date End Date Kuhn Tian, [address] [place] [address] PCP - General Family Medicine 12/03/23 Supervisor Color Paste Mixing Relationship Specialty Start Date End Date Tian Kuhn [address] [place] [address] PCP - General Family Medicine 12/03/23 Supervisor Color Paste Mixing Relationship Specialty Start Date End Date Tian Kuhn DO [address] [place] [address] PCP - General Family Medicine 12/03/23 Supervisor Color Paste Mixing Relationship Specialty Start Date End Date Tian Kuhn DO [address] [place] [address] PCP - General Family Medicine 12/03/23 Scheduled [...] BE BASED ON THE PRIMARY CLINICAL RECORDS. [facility]. provides no warranty or guarantee of the accuracy or completeness of information in this document.
[2024-07-18] MEDS: 0.9 % SODIUM CHLORIDE 500 ML 50 ML IV ×3 (12:56→23:42)
--- NOTE | 2024-07-18 13:00 | XR_ITS ---
[address] [address] Patient Name: CUATE GOODMAN MRN: [id number] date: 1940 Sex: F Assigned Patient Location: MS Current Patient Location: Accession/Order Number: [id number] Exam Date: 07/18/2024 13:14 Report Date: 07/18/2024 15:53 At the request of: SANTOSH HOGUE Procedure: XR urethrogram retrograde EXAM: XR urethrogram retrograde HISTORY: Left kidney stone, left retrograde, left stent placement COMPARISON: None. TECHNIQUE: Single image. 15.9 mgy FINDINGS: Single image demonstrates placement of a left double-J ureteral stent in normal position. IVC filter observed XR/XR urethrogram retrograde IMPRESSION: Left ureteral stent Electronically authenticated by: KIMBER MALLOY Date: 07/18/2024 15:53
--- NOTE | 2024-07-18 13:11 | PM.CN ---
Consult Note: HPI Data of Consult Patient: new to practice Consult date: 07/18/24 Requesting Physician: Jayme Shafer MD Primary Care Provider: JASON MORALES, DO Consult Narrative Reason for consult: Left proximal ureteral stone, UTI, solitary kidney Narrative: 83-year-old female with a solitary kidney presents to the emergency department for left lower back pain. CT AP wo contrast shows an 8x5x10 mm left proximal ureteral stone with moderate hydronephrosis and perinephric stranding. Additional 7x5 mm LLP stone present. WBC wnl, Cr 1.3 from baseline 1.0, UA +nitrites, leuk esterase consistent with infection. Afebrile, vitals stable. Denies dysuria, hematuria, fever, nausea, emesis, but notes cloudy urine for the past week. She was given IV Toradol and antinausea medicine by the paramedics and it seems to have helped some, she feels improved. IV rocephin given at 930 in ER. Pt now with chills. Hx right simple nephrectomy in 1977 for significant stone burden. No stones since. Hx aneurysm 2 years ago. On Eliquis BID. Appears to have IVC filter on CT scan Denies hx of MO, DM or stroke. Lives alone cc:: CC: Jayme Shafer MD Review of Systems ROS Status of ROS 10 or more systems reviewed and unremarkable except as noted in history and below Constitutional Reports: chills; Denies: fever Cardiovascular Denies: chest pain or palpitations Respiratory Denies: shortness of breath or cough Gastrointestinal Denies: abdominal pain or vomiting Genitourinary Denies: blood in urine or difficulty voiding Musculoskeletal Reports: back pain; Denies: muscle weakness Neurological Denies: confusion or slurred speech Hematologic/Lymphatic Reports: easy bruising and easy bleeding PFSH PFS Medical History (Updated 07/18/24 @ 13:24 by Cyn Garza MD) Chest pain ?R07.9 - Chest pain, unspecified (ICD-10) Aneurysm of aorta ?I71.9 - Aortic aneurysm of unspecified site, without rupture (ICD-10) Surgical History (Updated 05/01/24 @ 21:14 by Andressa Lea) H/O: hysterectomy ?Z90.710 - Acquired absence of both cervix and uterus (ICD-10) H/O left knee surgery ?Z98.890 - Other specified postprocedural states (ICD-10) H/O kidney removal ?Z90.5 - Acquired absence of kidney (ICD-10) History of hip surgery ?Z98.890 - Other specified postprocedural states (ICD-10) History of cholecystectomy ?Z90.49 - Acquired absence of other specified parts of digestive tract (ICD-10) Family History (Updated 05/01/24 @ 21:32 by Andressa Lea) Father Family history of CHF (congestive heart failure) Family history of COPD (chronic obstructive pulmonary disease) Family history of cancer Family history of hypertension Family history of myocardial infarction Mother Family history of cancer Grandmother Family history of cancer Family history of stroke Granddaughter Family history of diabetes mellitus Social History (Updated 05/01/24 @ 21:33 by Andressa Lea) Within the past year, how often did you have a drink containing alcohol: never Score interpretation: A score less than 3 is consistent with normal alcohol consumption. Smoking status: Never smoker Non-prescribed substance use: denies use Previous occupational history: retired Highest level of school completed/degree received: 11th grade Are you now , , , , never or living with a partner: In a typical week, how many times do you talk on the telephone with family, friends, or neighbors: 3 or more times per week How often do you get together with friends or relatives: twice per week How often do you attend scientology or taoist services: never Do you belong to any clubs or organizations such as scientology groups unions, fraternal or athletic groups, or school groups: no Total score: 1 Score interpretation: A score of less than or equal to 1 indicates the most socially isolated. Little interest or pleasure in doing things: not at all Feeling down, depressed, or hopeless: not at all Feel stressed/tense/nervous/anxious/difficulty sleeping: only a little Do you think of yourself as: straight/heterosexual Gender Identity: female Meds Home Medications and Allergies Home Medications ?Medication ?Instructions ?Recorded ?Confirmed ?Type allopurinol 100 mg tablet 100 mg PO DAILY 05/01/24 07/18/24 History apixaban 5 mg tablet (Eliquis) 5 mg PO Q12H 05/01/24 07/18/24 History magnesium oxide 400 mg (241.3 mg 400 mg PO BID 05/01/24 07/18/24 History magnesium) tablet omeprazole 20 mg capsule,delayed 20 mg PO .daily 05/01/24 07/18/24 History release tolterodine 4 mg capsule,extended 4 mg PO BID 05/01/24 07/18/24 History release 24 hr Allergies Allergy/AdvReac Type Severity Reaction Status Date / Time morphine Allergy Mild Abdominal Verified 07/18/24 06:53 Pain Exam Narrative Exam Narrative: No acute distress, appears fatigued Nonlabored respirations, symmetric chest rise, on room air Normal rate and rhythm, no peripheral edema No abdominal tenderness to palpation, non distended Left CVA tenderness to palpation, no suprapubic or right CVA tenderness palpation Moves all extremities, no deformities Alert and oriented x 4, no acute focal deficits Skin dry, intact Appropriate, cooperative Constitutional Vital Signs, click to edit/add: Last Vital Signs Temp 98.4 F 07/18/24 06:53 Pulse 84 07/18/24 10:37 Resp 18 07/18/24 10:37 BP 143/79 H 07/18/24 10:37 Pulse Ox 95 07/18/24 10:37 O2 Del Method Room Air 07/18/24 08:56 Results Labs Labs: Short CBC 07/18/24 Range/Units 07:13 WBC 7.7 (4.0-11.0) 10^3/uL Hgb 12.1 (12.0-16.0) g/dL Hct 37.9 (36.0-48.0) % Plt Count 267 (150-450) 10^3/uL BMP 07/18/24 07:13 Sodium 140 Potassium 4.1 Chloride 105 Carbon Dioxide 28.3 BUN 28.0 H Creatinine 1.33 H Glucose 111 H Calcium 9.5 Liver Function 07/18/24 Range/Units 07:13 Total Bilirubin 0.3 (0.2-1.0) mg/dL AST 17 (15-37) U/L ALT 12 L (14-59) U/L Alkaline Phosphatase 105 (46-116) U/L Albumin 3.0 L (3.4-5.0) g/dL Urine 07/18/24 Range/Units 08:54 Urine Color Dk. yellow (YELLOW) Urine Clarity Clear (CLEAR) Urine pH 6.0 (5.0-9.0) Ur Specific [place] 1.020 (1.005-1.025) Urine Protein 100 A (NEG/TRACE) mg/dL Urine Glucose (UA) Negative (NEGATIVE) mg/dL Imaging CT scan - abdomen: Attestation: I personally reviewed and interpreted this imaging study as follows: My impression: CT AP wo contrast shows an 8x5x10 mm left proximal ureteral stone with moderate hydronephrosis and perinephric stranding. Additional 7x5 mm LLP stone present. Assessment and Plan Assessment and Plan (1) Ureteral stone with hydronephrosis: (2) Urinary tract infection: (3) Kidney stone: (4) Acquired solitary kidney: (5) Flank pain: (6) Anticoagulant long-term use: Plan 83 year old female on eliquis, with history of solitary kidney s/p R simple nephrectomy here with 8x10 mm left proximal ureteral stone with hydronephrosis and urinary tract infection. Discussed findings with patient and concern for developing sepsis and renal failure. Urgent intervention of cystoscopy, left retrograde pyelogram, left ureteral stent placement was discussed to relieve blockage, infection, pain and protect kidney from failure. Stone will be treated at a later date once she has recovered from acute infection and hopefully can be off of anticoagulation, Eliquis. Risks were discussed including but not limited to bleeding, pain, infection, damage to surrounding structures, inability to place stent, need for additional procedures. Patient understands stent is not permanent and needs to be removed/exchanged within 3 months to prevent encrustation, infection, and/or permanent renal damage. -Cont care on floor post op under hospitalist service -Cont empiric abx, f/u urine culture and treat x 7-10 days -Follow up outpatient in 1 week to discuss and schedule definitive stone treatment.
--- NOTE | 2024-07-18 13:28 | PM.URSON ---
Urology Surgery Operative Note Operative Note Procedure Date: 07/18/24 Time Out Performed: yes Pre-op Diagnosis: 1. Left proximal ureteral stone with hydronephrosis 2. Urinary tract infection 3. Solitary kidney 4. Renal colic Post-op Diagnosis: same as pre-op Procedures performed: Cystoscopy, left retrograde pyelogram, left ureteral stent placement Catheter placement Anesthesia: General-ET (Dr. Casper) Primary Surgeon: Cyn Garza Complications: none Estimated blood loss (mL): 0 Findings: Smaller capacity bladder, cloudy urine, cystitis cystica L RPG- L proximal ureteral filling defect consistent with known stone, no contrast passing proximally, difficult to see stone. Hydronephrotic drip, return of purulent urine proximal to stone Specimens: none Drains: 6Fr x 24 cm JJ left ureteral stent 16Fr 2way hamilton catheter, 10 cc in balloon Indications for Procedures: 83 year old female on eliquis, with history of solitary kidney s/p R simple nephrectomy here with 8x10 mm left proximal ureteral stone with hydronephrosis and urinary tract infection. Discussed findings with patient and concern for developing sepsis and renal failure. Patient elects to proceed with urgent intervention of cystoscopy, left retrograde pyelogram, left ureteral stent placement. Stone will be treated at a later date once she has recovered from acute infection. Risks were discussed including but not limited to bleeding, pain, infection, damage to surrounding structures, inability to place stent, need for additional procedures. Patient understands stent is not permanent and needs to be removed/exchanged within 3 months to prevent encrustation, infection, and/or permanent renal damage. Detailed description of Procedure: After informed consent was obtained, the patient was brought to the operating room and transferred onto the operating table in supine position. Sequential compression devices were placed on right lower extremity, unable to place on left due to significant edema. The patient received the appropriate dose of preoperative IV antibiotics and general anesthesia ETT was induced. They were positioned in modified dorsolithotomy with the appropriate pressure points padded, prepped, and draped in the usual sterile fashion for this procedure. An operative safety timeout was performed confirming the patient's identity, laterality and procedure, and all present agreed to proceed. I began by inserting a 22 Sinhala rigid cystoscope with 30 degree lens into the patient's urethra and bladder without difficulty. Findings as above. There were no bladder tumors, lesions, stones or foreign bodies. Bilateral ureteral orifices were orthotopic and only left was patent. I turned my attention to the left ureteral orifice and a 6- Sinhala open-ended catheter was inserted into the ureteral orifice. Gentle instillation of dilute contrast was injected for retrograde pyelogram with findings as above. Full evaluation was limited to prevent pyelovenous backflow. A sensor wire was inserted into the catheter to bypass the ureteral stone up to the renal pelvis confirmed on fluoroscopy and the open ended catheter was advanced over the wire up to the renal pelvis. The wire was removed, hydronephrotic drip and release of purulent urine was noted. Limited contrast was injected to identify collecting system. The wire was replaced and catheter was removed. A 6Fr x 24 cm JJ ureteral stent was advanced over the wire, noting adequate curl in the kidney and bladder on fluoroscopic and direct visualization. The bladder was irrigated until clear and inspected one final time to ensure adequate position of stent and no undue trauma to the bladder was done. The cystoscope was removed and a 16Fr hamilton was inserted without difficulty, 10 cc in balloon. The patient tolerated the procedure well without complication. The patient was awakened from anesthesia and sent to the PACU in stable condition. Plan: -Cont care on the floor per primary. -Cont empiric abx and f/u urine culture to ensure on sensitive abx x 7-10 days -Home tolterodine for bladder spasms/stent pain, pyridium 100-200mg TID PRN for dysuria. -Ok to dc hamilton once urine is clear, pt afebrile x 24 hrs and labs wnl. Bladder scan post void to ensure emptying -Follow up in 1-2 weeks in the office to discuss definitive stone treatment. Findings/plan discussed with pt's approved family member
[2024-07-18] MEDS: IOHEXOL 240 MG/ML - 50 ML VIAL INJ (13:45)
[2024-07-18] MEDS: ACETAMINOPHEN 500 MG TABLET 1000 MG PO ×2 (14:19→23:44)
--- NOTE | 2024-07-18 15:11 | PC.NURSE ---
Medicated with Tylenol XS for elevated temp
[2024-07-18] MEDS: MAGNESIUM OXIDE 400 MG TABLET PO (20:44)
[2024-07-19] VITALS (12 sets, daily range): BP systolic 95–145; BP diastolic 57–86; PULSE 52–87; TEMP 36.5–36.8; O2SAT 93–95
[2024-07-19] MEDS: OMEPRAZOLE 20 MG CAPSULE.DR PO (05:21)
[2024-07-19] MEDS: ACETAMINOPHEN 500 MG TABLET 1000 MG PO ×2 (05:21→15:44)
[2024-07-19 08:15] LABS: Basophils Percent Auto 0.3 % (0.2-2.0); Eosinophils Absolute Auto 0.1 10^3/uL (0.0-0.7); Eosinophils Percent Auto 0.8 % (0.9-7.0); Hematocrit 34.4 % (36.0-48.0); Immature Granulocytes Abs Auto 0.05 10^3/uL (0.00-0.03); Immature Granulocytes Pct Auto 0.4 % (0.0-0.5); Lymphocytes Absolute Auto 0.9 10^3/uL (1.2-3.8); Lymphocytes Percent Auto 7.3 % (20.5-60.0); Mean Corpuscular Hemoglobin 31.3 pg (26.7-34.0); Mean Corpuscular Volume 97.7 fL (81.0-99.0); Mean Platelet Volume 10.1 fL (9.5-13.5); Monocytes Absolute Auto 1.1 10^3/uL (0.3-0.8); Monocytes Percent Auto 8.5 % (1.7-12.0); Neutrophils Absolute Auto 10.3 10^3/uL (1.4-6.5); Neutrophils Percent Auto 82.7 % (43.0-75.0); Platelet Count 235 10^3/uL (150-450); Red Blood Count 3.52 10^6/uL (4.20-5.40); Red Cell Distribution Width 14.2 % (11.0-15.0); White Blood Count 12.4 10^3/uL (4.0-11.0)
[2024-07-19 08:35] LABS: Anion Gap 12.1; BUN Creatinine Ratio 22.4; Calcium 8.8 mg/dL (8.5-10.1); Carbon Dioxide 26.1 mmol/L (21.0-32.0); Chloride 105 mmol/L (98-107); Estimated GFR (African America 40 (>=60 mL/min/1.73m^2); Estimated GFR (Non-African Ame 33 (>=60 mL/min/1.73m^2); Glucose 101 mg/dL (74-106); Potassium 4.2 mmol/L (3.5-5.1); Sodium 139 mmol/L (136-145)
[2024-07-19] MEDS: SOLIFENACIN SUCCINATE 10 MG TABLET PO (08:49)
[2024-07-19] MEDS: ALLOPURINOL 100 MG TABLET PO (08:49)
[2024-07-19] MEDS: MAGNESIUM OXIDE 400 MG TABLET PO ×2 (08:49→21:50)
[2024-07-19] MEDS: APIXABAN 5 MG TABLET PO ×2 (08:49→21:50)
[2024-07-19] MEDS: CEFTRIAXONE 1,000 MG in 0.9 % SODIUM CHLORIDE 50 ML 100 MG IV (08:56)
[2024-07-19 09:16] LABS: Lactate/Lactic Acid 1.5 mmol/L (0.4-2.0)
--- NOTE | 2024-07-19 10:32 | P.PN_ITS ---
Progress Note: Subjective Subjective Interval history: Patient specific complaint, pain is improving. Exam Constitutional Vital Signs, click to edit/add: Last Vital Signs Temp 97.7 F 07/19/24 08:00 Pulse 71 07/19/24 08:00 Resp 16 07/19/24 08:00 BP 110/65 07/19/24 08:00 Pulse Ox 95 07/19/24 08:00 O2 Del Method Room Air 07/19/24 08:00 O2 Flow Rate 1 07/18/24 15:44 Lymph Lymphatic: no lymphadenopathy noted Chest Common normals: inspection of chest normal Respiratory Common normals: normal respiratory effort and no retractions Cardio Common normals: regular rate and regular rhythm GI Common normals: Normal to inspection, nondistended, normoactive bowel sounds present Neuro Common normals: oriented x3, CN's II-XII intact bilaterally and moves all extremities Progress Note: Objective Labs Labs: Short CBC 07/19/24 Range/Units 07:23 WBC 12.4 H (4.0-11.0) 10^3/uL Hgb 11.0 L (12.0-16.0) g/dL Hct 34.4 L (36.0-48.0) % Plt Count 235 (150-450) 10^3/uL BMP 07/19/24 07:23 Sodium 139 Potassium 4.2 Chloride 105 Carbon Dioxide 26.1 BUN 34.0 H Creatinine 1.52 H Glucose 101 Calcium 8.8 Progress Note: A&P Assessment and Plan (1) Flank pain: (2) Acquired solitary kidney: (3) Ureteral stone with hydronephrosis: (4) Iron deficiency anemia: (5) Right bundle branch block: Plan Admission findings: Sinus tachycardia, obstructing nephrolithiasis with hydronephrosis and acute UTI Nephrolithiasis with obstruction-status post stenting, plan per urology Acute pyelonephritis-stent in place, white blood cell count is higher today, will add levofloxacin to the Rocephin, culture pending Acute kidney injury-baseline creatinine of 0.94, creatinine this morning of 1.52, that is the 161.7% above baseline and she has had decreased urine output resulting in stage I acute kidney injury-IV fluid bolus and increase maintenance rate, need to be careful with creatinine, patient has only 1 kidney Recent history of chest pain, cardiac issue ruled out at that time. History of pulmonary embolism-on anticoagulation, restarting today GERD-continue with home medications Hypomagnesemia-continue with home medications Mild protein calorie malnutrition-diet management Admission status: Patient with kidney stone requiring stenting, acute UTI possible pyelonephritis, IV antibiotics, medically necessary treatment will span 2 midnights. Inpatient status. ? Urinary Catheter Management Urinary Catheter Management Urethral: Cath placed during this visit: yes Urethral indwelling: Yes Reason for continuing: acute urinary retention Insertion date: 07/18/24 Insertion time: 13:49
[2024-07-19] MEDS: 0.9 % SODIUM CHLORIDE 1,000 ML 100 ML IV ×2 (11:29→19:00)
[2024-07-19] MEDS: LEVOFLOXACIN IN DEXTROSE 5 % 750 MG/150 ML PREMIX 100 MG IV (12:16)
--- NOTE | 2024-07-19 15:24 | ECG_ITS ---
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
[2024-07-19 16:37] LABS: Troponin I High Sensitivity 12.2 pg/mL (4.0-51.3)
[2024-07-19] MEDS: KETOROLAC TROMETHAMINE 30 MG/ML VIAL 15 MG IVP (16:46)
[2024-07-19 20:44] LABS: Troponin I High Sensitivity 13.2 pg/mL (4.0-51.3)
[2024-07-20] VITALS (10 sets, daily range): BP systolic 129–160; BP diastolic 79; PULSE 69–86; TEMP 36.8–36.9; O2SAT 91–93
[2024-07-20] MEDS: 0.9 % SODIUM CHLORIDE 1,000 ML 100 ML IV (04:41)
[2024-07-20] MEDS: OMEPRAZOLE 20 MG CAPSULE.DR PO (05:59)
[2024-07-20 06:27] LABS: Basophils Percent Auto 0.3 % (0.2-2.0); Eosinophils Absolute Auto 0.1 10^3/uL (0.0-0.7); Eosinophils Percent Auto 1.9 % (0.9-7.0); Hematocrit 35.8 % (36.0-48.0); Hemoglobin 11.2 g/dL (12.0-16.0); Immature Granulocytes Abs Auto 0.02 10^3/uL (0.00-0.03); Immature Granulocytes Pct Auto 0.3 % (0.0-0.5); Lymphocytes Percent Auto 15.9 % (20.5-60.0); Mean Corpuscular HGB Conc 31.3 g/dL (29.9-35.2); Mean Corpuscular Hemoglobin 30.9 pg (26.7-34.0); Mean Corpuscular Volume 98.6 fL (81.0-99.0); Mean Platelet Volume 10.2 fL (9.5-13.5); Monocytes Absolute Auto 0.6 10^3/uL (0.3-0.8); Neutrophils Absolute Auto 4.5 10^3/uL (1.4-6.5); Neutrophils Percent Auto 71.6 % (43.0-75.0); Platelet Count 222 10^3/uL (150-450); Red Blood Count 3.63 10^6/uL (4.20-5.40); White Blood Count 6.2 10^3/uL (4.0-11.0)
[2024-07-20 06:36] LABS: Anion Gap 10.8; BUN Creatinine Ratio 25.8; Calcium 8.9 mg/dL (8.5-10.1); Carbon Dioxide 26.7 mmol/L (21.0-32.0); Chloride 109 mmol/L (98-107); Estimated GFR (African America 52 (>=60 mL/min/1.73m^2); Estimated GFR (Non-African Ame 43 (>=60 mL/min/1.73m^2); Glucose 96 mg/dL (74-106); Potassium 4.5 mmol/L (3.5-5.1); Sodium 142 mmol/L (136-145)
[2024-07-20] MEDS: MAGNESIUM OXIDE 400 MG TABLET PO (09:20)
[2024-07-20] MEDS: SOLIFENACIN SUCCINATE 10 MG TABLET PO (09:20)
[2024-07-20] MEDS: CEFTRIAXONE 1,000 MG in 0.9 % SODIUM CHLORIDE 50 ML 100 MG IV (09:20)
[2024-07-20] MEDS: ALLOPURINOL 100 MG TABLET PO (09:20)
[2024-07-20] MEDS: APIXABAN 5 MG TABLET PO (09:20)
--- NOTE | 2024-07-20 09:30 | P.DS_ITS ---
DS: Providers Provider Date of admission: 07/18/24 12:28 Primary care physician: JASON MORALES DO Consults: 07/18/24 12:36 Occupational Therapy Eval and Treat Routine Reason for consultation: Only if needed for Rehab Has provider been notified: No Physical Therapy Eval and Treat Routine Reason for consultation: Eval and Treat Has provider been notified: No DS: Diagnosis Discharge Diagnosis (1) Flank pain: (2) Acquired solitary kidney: (3) Ureteral stone with hydronephrosis: (4) Iron deficiency anemia: (5) Right bundle branch block: Plan Admission findings: Sinus tachycardia, obstructing nephrolithiasis with hydronephrosis and acute UTI Nephrolithiasis with obstruction-status post stenting, plan per urology Acute pyelonephritis-stent in place, white blood cell count is higher today, will add levofloxacin to the Rocephin, culture pending Acute kidney injury-baseline creatinine of 0.94, creatinine this morning of 1.52, that is the 161.7% above baseline and she has had decreased urine output resulting in stage I acute kidney injury-IV fluid bolus and increase maintenance rate, need to be careful with creatinine, patient has only 1 kidney Recent history of chest pain, cardiac issue ruled out at that time. History of pulmonary embolism-on anticoagulation, restarting today GERD-continue with home medications Hypomagnesemia-continue with home medications Mild protein calorie malnutrition-diet management Admission status: Patient with kidney stone requiring stenting, acute UTI possible pyelonephritis, IV antibiotics, medically necessary treatment will span 2 midnights. Inpatient status. DS: Summary Hospital Course Hospital Course: Admitted with acute pyelonephritis with obstructing nephrolithiasis. Taken to the operating room and a stent was placed without difficulty, with the pyelonephritis she was kept in the inpatient setting for IV antibiotics and close observation as she is a high risk for proceeding to severe sepsis. She did have an acute kidney injury (Acute kidney injury-baseline creatinine of 0.94, creatinine this morning of 1.52, that is the 161.7% above baseline and she has had decreased urine output resulting in stage I acute kidney injury-IV fluid bolus and increase maintenance rate, need to be careful with creatinine, patient has only 1 kidney) that is improving at the time of discharge. At this point she is ambulated in the reyes and no shortness of breath, strength is improving, will discharge patient to home prior to knowing the results of the cultures, can follow-up with those with her PCP was sent home with oral antibiotics medications see list. Follow-up with PCP within the next week. Status at Discharge Overall status at discharge: patient is not back to baseline Time Spent with Patient Time attestation: Total time spent providing and/or coordinating discharge services: Time spent: greater than 30 minutes Exam Constitutional Vital Signs, click to edit/add: Last Vital Signs Temp 98.3 F 07/20/24 08:00 Pulse 81 07/20/24 08:00 Resp 20 07/20/24 08:00 BP 160/79 H 07/20/24 08:00 Pulse Ox 93 L 07/20/24 08:00 O2 Del Method Room Air 07/20/24 08:00 O2 Flow Rate 1 07/18/24 15:44 Chest Common normals: inspection of chest normal Respiratory Common normals: normal respiratory effort and no retractions Cardio Common normals: regular rate, regular rhythm and no murmurs GI Common normals: Normal to inspection, nondistended, normoactive bowel sounds present Neuro Common normals: oriented x3, CN's II-XII intact bilaterally and moves all extremities DS: Data Data Completed and Pending Labs on day of discharge: Labs from last 24 hours 07/20/24 07/20/24 07/19/24 05:54 05:44 19:54 WBC 6.2 RBC 3.63 L Hgb 11.2 L Hct 35.8 L MCV 98.6 MCH 30.9 MCHC 31.3 RDW 14.0 Plt Count 222 MPV 10.2 Neut % (Auto) 71.6 Lymph % (Auto) 15.9 L [place] % (Auto) 10.0 Eos % (Auto) 1.9 Baso % (Auto) 0.3 Neut # (Auto) 4.5 Lymph # (Auto) 1.0 L [place] # (Auto) 0.6 Eos # (Auto) 0.1 Baso # (Auto) 0.0 Abs Immat Gran (auto) 0.02 Imm/Tot Granulo (auto) 0.3 Sodium 142 Potassium 4.5 Chloride 109 H Carbon Dioxide 26.7 Anion Gap 10.8 BUN 31.0 H Creatinine 1.20 H Est GFR ( Amer) 52 L Est GFR (Non-Af Amer) 43 L BUN/Creatinine Ratio 25.8 Glucose 96 Calcium 8.9 Troponin I High Sens 13.2 07/19/24 15:48 WBC RBC Hgb Hct MCV MCH MCHC RDW Plt Count MPV Neut % (Auto) Lymph % (Auto) [place] % (Auto) Eos % (Auto) Baso % (Auto) Neut # (Auto) Lymph # (Auto) [place] # (Auto) Eos # (Auto) Baso # (Auto) Abs Immat Gran (auto) Imm/Tot Granulo (auto) Sodium Potassium Chloride Carbon Dioxide Anion Gap BUN Creatinine Est GFR ( Amer) Est GFR (Non-Af Amer) BUN/Creatinine Ratio Glucose Calcium Troponin I High Sens 12.2 Discharge Plan Discharge Disposition: Home Health Service Condition: Fair Discharge Medications: New levofloxacin 750 mg tablet 750 mg PO DAILY 14 Days Qty: 14 0RF solifenacin 10 mg Tablet 10 mg PO QD Qty: 30 11RF Continued Eliquis 5 mg tablet 5 mg PO Q12H allopurinol 100 mg tablet 100 mg PO DAILY magnesium oxide 400 mg (241.3 mg magnesium) tablet 400 mg PO BID omeprazole 20 mg capsule,delayed release(DR/EC) 20 mg PO .daily tolterodine 4 mg capsule,extended release 24hr 4 mg PO BID Activity: increase activity as tolerated Diet: advance to your usual diet Print Language: Swedish Patient Instructions: Levofloxacin (By mouth), Solifenacin (By mouth), Kidney Stones (DC), Ureteral Stent Placement (DC) Activity Restrictions/Additional Instructions: Complete your antibiotics. Tylenol 650-1000 mg every 6 hours as needed for post-op pain. Continue home tolterodine for bladder spasms, stent pain. AZO for urinary discomfort/burning can be purchased at local pharmacy. This will make your urine orange. Return to ER for fevers > 101.5F, uncontrolled nausea/emesis, uncontrolled pain, or inability to void. The ureteral stent is not permanent and needs to be removed or exchanged within 3 months to prevent encrustation, infection, invasive procedures and/or permanent renal damage. 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 Phone number is [phone], they should contact within 48 hours of discharge Forms: Portal Instructions Referrals: Cyn Garza MD [Physician] - (Office to call to schedule follow up in 1 week to discuss definitive stone treatment ) Follow Up Appointments: Jul. 6 @ 2pm with Dr. Morales [phone] @ 9:30am with Dr. Garza [facility], [address] [place] [address] Discharge Date/Time: 07/20/24 17:06
--- NOTE | 2024-07-20 09:35 | SWNOTE1 ---
SW spoke to case management and pt does need HH and she has chosen [facility]. Referral sent to [facility]. Referral included face sheet, ED note, H&P, provider notes, case management report and PT/OT notes.
--- NOTE | 2024-07-20 09:58 | CM.NOTE ---
Rounds made with Dr. Shafer, discussed with pt discharge to home. Pt does verbalize interest in HH services, pt requests [facility] after looking at Medicare.gov 5 star rating. Update given to CAMMIE.
--- NOTE | 2024-07-20 10:19 | CM.NOTE ---
Important Message From Medicare discussed with pt, pt verbalizes understanding and signs paper. Original given to pt and copy placed on pt's chart.
--- NOTE | 2024-07-20 11:13 | REH.PTDLY ---
Physical Therapy Daily Note PT Daily Note/Assess Start: 07/18/24 16:56 Freq: Status: Active Protocol: Document 07/20/24 10:27 ISABELA (Rec: 07/20/24 11:13 ISABELA [id number]) Physical Therapy Daily Note/Assessment Time In 09:36 Time Out 09:48 Subjective Pt in bed upon arrival with nurses aide. Pt wanting IV, hamilton, and heart monitor removed. Told pt nursing was in charge of those things and we couldn't remove them at this time. Pt states she is going home later today. Therapeutic Activity 12 Minutes (minutes) Therapeutic Activity 1 Units Therapeutic Activity With use of bed rails pt is able to transfer from Comments supine to sit. Sit to stand transfer with bed slightly elevated as pt reports her chair at home is higher than the bed at the lowest point. Pt able to perform sit to stand transfer from bedside CGA. Gait training with RW SBA 190 feet at slower, but steady pace with no LOB noted. Pt requests to go back into the bed to keep her leg elevated. Pt requires Min A with L LE to transfer sit to supine. Pt ind with bed mobility once supine and is able to adjust herself accordingly. Total Therapy 12 Minutes Total Physical 1 Therapy Units Daily Note Summary Progressed gait distance today with no complaints. Pt able to ambulate safely in hallway with AD. Pt only required Min A to bring L LE into bed after rx. SBA/CGA with all other transfers and gait.
--- NOTE | 2024-07-20 14:31 | SWNOTE1 ---
[facility] is able to accept. CAMMIE faxed over CRF and dc med rec to [facility]. CAMMIE let nurse know and put [facility] phone number in discharge paperwork.
--- NOTE | 2024-07-21 16:27 | CM.DCFOLLOWU ---
Person spoke with: patient How are you feeling? can feel kidney stone move and having some pain How is your pain? having some pain Did you understand your discharge instructions? yes Do you have any questions about your discharge instructions? no Were you given any prescriptions at discharge? yes Were you able to get your prescriptions filled? yes Do you understand how to take your medications as ordered?yes Do you have any questions about your follow up appointment and do you plan to keep your follow up appointment? no questions, reviewed follow ups Is there anything else that you would like to discuss? Patient concerned about feeling the kidney stone moving and having some pain and blood in urine. Advised patient to come to the ER if this continues Questions/Comments/Concerns/Other:N/A
== END 2024-07-20 17:06 | disposition home health service (06) | DRG 660 ==
LOC: ER 12:30 → MS 12:32
PROVIDERS: Urology; Admitting Provider Family Medicine; Emergency Provider Emergency Medicine; PCP Family Medicine; Visit Provider Family Medicine
PROC: 0T778DZ Dilation of Left Ureter with Intraluminal Device, Via Natural or Artificial Opening Endoscopic (ICD-10-PCS; principal; 2024-07-18 12:30)
DX: N13.6 Pyonephrosis (principal); E44.1 Mild protein-calorie malnutrition; D50.9 Iron deficiency anemia, unspecified; I45.10 Unspecified right bundle-branch block; Z90.5 Acquired absence of kidney; N17.9 Acute kidney failure, unspecified; Z86.711 Personal history of pulmonary embolism; Z79.01 Long term (current) use of anticoagulants; E83.42 Hypomagnesemia; Z68.37 Body mass index [BMI] 37.0-37.9, adult; Z79.899 Other long term (current) drug therapy; Z88.5 Allergy status to narcotic agent; K21.9 Gastro-esophageal reflux disease without esophagitis; Z96.652 Presence of left artificial knee joint; Z87.442 Personal history of urinary calculi; Z96.643 Presence of artificial hip joint, bilateral
CPT/HCPCS: 36415; 51702; 74176; 74420; 80048; 80053; 81001; 83605; 84484; 85025; 87086; 93005; 94667; 94761; 96365; 96375; 96376; 97161; 97165; 97530; 99285; J0696; J1885; J2250; J2405; J2704; J3010; Q9966

== ENCOUNTER 2024-08-01 12:37 | Outpatient (OUT) | payer MEDICARE, SELFPAY | END 2024-08-01 12:38 | disposition home or self-care (01) | LOC: PST 12:37 | PROVIDERS: PCP Family Medicine; Visit Provider Urology | DX: Z01.818 Encounter for other preprocedural examination (principal); N13.2 Hydronephrosis with renal and ureteral calculous obstruction ==

== ENCOUNTER 2024-08-09 15:25 | Observation (INO) | payer MEDICARE, SELFPAY ==
[2024-08-09] VITALS (8 sets, daily range): BP systolic 107–150; BP diastolic 66–84; PULSE 56–86; TEMP 36.4–36.7; O2SAT 93–98; BMI 41.1; BMI 42.6
--- OUTSIDE RECORDS SUMMARY | 2024-08-09 12:44 | XMS_ITS | CCD ---
Author Organization [facility] CliniSytn Care Team Providers Care Software Development Project Manager Name Role Phone BAM, DR TIAN Krause Primary Care Unavailable CUAUHTEMOC ., SELINA Attending Unavailable CUAUHTEMOC ., SELINA Admitting Unavailable WEST, DR KIMBER Lopez Consulting Unavailable ZIEBER, DR EYAD Hines Consulting Unavailable HAY ., DR STERN Consulting Unavailable KATKOSINDY Consulting Unavailable CUAUHTEMOC ., SELINA Consulting Unavailable KUHN, DR TIAN Krause Primary Care Unavailable KUHNTIAN WELCH Referring Unavailable KUHNTIAN WELCH Primary Care Unavailable KUHNTIAN Referring Unavailable KUHNTIAN Primary Care Unavailable KUHNTIAN Referring Unavailable KUHNTIAN Primary Care Unavailable JR. BOO GEORGE C Attending Unavaila meagan BOO JR., GEORGE C Referring Unavaila meagan Boo Jr., Truman CIFUENTES Primary Care Provider Rajeev Arriaga DO, George Primary Care Provider CEFERINO QUIÑONEZ Attending Unavailable Kuhn Tian CIFUENTES Primary Care Provider [phone] Kuhn Tian CIFUENTES Primary Care Provider [phone] REBECCA, MOHAN Admitting Unavailable REBECCAROBERTAN Attending Unavailable REBECCA, MOHAN Referring Unavailable CONSULT, INFECTIOUS DISEASE Consulting Unav ailable TIAN KUHN Primary Care Unavailable TRUMAN BOO JR. Referring Unavailable TRUMAN BOO JR. Primary Care Unavailable ERIK HEREDIA Attending Unavailable PAIGE DAMON Attending Unavailable AVE MACKEY Referring Unavailable KUHNTIAN Primary Care Unavailable SELF, SELF Referring Unavailable PAIGE DAMON Attending Unavailable KUHNTIAN Primary Care Unavailable PAIGE DAMON Referring Unavailable PAIGE DAMON Attending Unavailable KUHNTIAN Primary Care Unavailable SELF, SELF Referring Unavailable PAIGE DAMON Attending Unavailable KUHN, TIAN Primary Care Unavailable BRODamianWELLPAIGE M Attending Unavailable BROCWELL, PAIGE M Referring Unavailable KUHN, TIAN Primary Care Unavailable MARISOL, PAIGE M Attending Unavailable MARISOL, PAIGE M Referring Unavailable KUHN, TINA Primary Care Unavailable STACI BALTAZAROLD James Attending Unavailable YAN, ERIK Referring Unavailable KUHN, TIAN Primary Care Unavailable RAJEEV TRUMAN Alfonso Primary Care Unavailable YAN, ERIK Referring Unavailable YAN, ERIK Attending Unavailable KUHN, TIAN Primary Care Unavailable YAN, ERIK Referring Unavailable YAN, ERIK Attending Unavailable ERIK HEREDIA Admitting Unavailable Tony Casas DO Attending Provider UnavailERIK Ho Primary Care Physician Unavail able Cyn Garza Attending Unavailable Cyn Garza Attending Unavailable Cyn Garza Attending Unavailable Cyn Garza Referring Unavailable Cyn Garza Attending Unavailable Cyn Garza Attending Unavailable Tony Casas Attending Unavailable Tony Casas Admitting Unavailable Allergies Allergy Classification Reported Allergen(s) Allergy Type Date of Onset Reaction(s) Facility (5 sources) Morphine; 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: [MORPHINE] Drug Allergy 7 [facility] Repository (12 sources) oxyCODONE; 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: [OXYCODONE] Drug Allergy 7 Nausea and Vomiting [facility] Repository (12 sources) Morphine; 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: [morphine] Drug Allergy 7 Nausea and Vomiting, Vomiting (disorder) [facility] (11 sources) Penicillins Propensity to adverse reactions to drug 4 [facility] Medications Current Medications Medication Drug Class(es) Dates [...] ARTHRITIS PAIN PO) Take by mouth. Active acetaminophen 325 mg / HYDROcodone bitartrate 5 mg oral tablet (17 sources) Opioid Agonist Start: 07-28-2024 acetaminophen- hydrocodone 325 mg-5 mg oral tablet Refill(s) 0 Start Date: 07/28/24 Status: Ordered Start: 01-11-2024 End: 01-19-2024 take 1-2 tablets by mouth every four hours as needed 1-2 tablet, Oral, EVERY 4 HOURS NEEDED, Starting on Wed01/13/24 at 1029, Until Wed01/19/24 at 1423, Severe Pain, Post-op/Post-Proc Start: 01-11-2024 End: 02-11-2024 take 1 tablet by mouth once daily as needed hydroCODone-acetaminophen 5-325 MG tablet Indications: Acute postoperative pain of left hip Take 1-2 tablets by mouth every 6 hours as needed for up to 7 days. Do not take over 4000mg acetaminophen daily. 30 tablet 01/11/2024 Active allopurinol 100 mg oral tablet (16 sources) Xanthine Oxidase Inhibitor Start: 07-28-2024 allopurinol 100 mg T ab Refills(s) 0 Start Date: 07/28/24 Status: Ordered Start: 01-12-2024 End: 02-11-2024 apixaban 5 mg oral tablet (18 sources) Factor Xa Inhibitor Start: 07-28-2024 Eliquis 5 mg oral tablet Refills(s) 0 Start Date: 07/28/24 Status: Ordered Start: 01-11-2024 End: 01-17-2024 take 2.5 mg by mouth every twelve hours in the morning 2.5 mg, Oral, EVERY 12 HOURS, First dose on Wed01/12/24 at 0900, Until Discontinued, Start in AM day after surgery, Indications: Venous Thromboembolism, Post-op/Post-Proc Start: 10-02-2023 End: 02-11-2024 take 1 tablet by mouth every twelve hours Eliquis 5 MG tablet Take 1 tablet by mouth every 12 hours. 10/02/2023 Active Cholecalciferol (13 sources) Vitamin D Start: 07-28-2024 cholecalcifero l Refills(s) 0 Start Date: 07/28/24 Status: Ordered Cholecalciferol (Vitamin D-3) 25 MCG (1000 UT) capsule Take by mouth. Active clarithromycin 500 mg oral tablet (2 sources) Macrolide Antimicrobial Start: 02-02-2024 End: 02-01-2025 take 1 tablet by mouth every hour clarithromycin 500 MG tablet Take 1 tab by mouth 1 hour prior to dental procedures 2 tablet 1 02/02/2024 02/01/2025 Active Docusate (16 sources) Start: 07-28-2024 docusate Refills(s) 0 Start Date: 07/28/24 Status: Ordered Start: 01-11-2024 End: 02-11-2024 take 1 capsule by mouth twice daily Docusate 100 MG capsule Take 1 capsule by mouth 2 times daily. 60 capsule 01/11/2024 Active ferrous sulfate (10 sources) Start: 07-28-2024 ferrous sulfat e Oral, Refills(s) 0 Start Date: 07/28/24 Status: Ordered Start: 02-11-2024 take 1 tablet by bharathi th once daily ferrous sulfate 325 (65 Fe) MG tablet Take 1 tablet by mouth daily. 90 tablet 02/11/2024 Active Start: 01-21-2024 End: 02-11-2024 magnesium oxide 400 mg oral tablet (13 sources) Start: 07-28-2024 magnesium oxid e 400 mg Tab Refills(s) 0 Start Date: 07/28/24 Status: Ordered Start: 10-02-2023 take 1 tablet by bharathi th twice daily magnesium oxide 400 (240 Mg) MG Take 1 tablet by mouth 2 times daily. 10/02/2023 Active 24 hr mirabegron 50 mg extended release oral tablet (1 source) beta3-Adrenergic Agonist Start: 07-28-2024 End: 07-23-2025 take 1 tablet by mouth once daily mirabegron 50 mg oral tablet, extended release 50 mg = 1 tab(s), Oral, Daily, X 30 day(s), # 30 tab(s), Refills(s) 11, Pharmacy: [facility]/pharmacy #[id number], 158, cm, 07/28/24 10:01:00 EST, Height/Length Dosing, 96, kg, 07/28/24 10:01:00 EST, Weight Dosing Start Date: 07/28/24 Stop Date: 07/23/25 Status: Ordered Multiple Vitamin (multivitamin) tablet (9 sources) take 1 tablet by mouth once daily Multiple Vitamin (multivitamin) tablet Take 1 tablet by mouth daily. Suspended take 1 tablet by mouth once kayden y Multiple Vitamin (multivitamin) tablet Take 1 tablet by mouth daily. Active omeprazole 20 mg delayed release oral capsule (13 sources) Proton Pump Inhibitor Start: 07-28-2024 omeprazo le 20 mg Cap-DR Refills(s) 0 Start Date: 07/28/24 Status: Ordered Start: 10-02-2023 omepraz[address] capsule 1 [...] capsule. 10/02/2023 Active vitamin b12 1 mg extended release oral tablet (13 sources) Vitamin B12 Start: 07-28-2024 take 1 tablet by mouth once daily cyanocobalamin 1000 mcg oral tablet, extended release 1,000 mcg = 1 tab(s), Oral, Daily, # 60 tab(s), Refills(s) 0 Start Date: 07/28/24 Status: Ordered cyanocobalamin 1 000 MCG tablet Take 5 tablets by mouth. Active Completed/Discontinued Medications Medication Drug Class(es) Dates Sig (Normalized) Sig (Original) betamethasone 0.5 mg/ml / clotrimazole 10 mg/ml topical cream (2 sources) Azole Antifungal, Corticosteroid Start: 02-09-2024 End: 02-11-2024 bifidobacterium animalis [id number] unt / lactobacillus acidophilus [id number] unt oral capsule (2 sources) Start: 01-22-2024 [...] docusate sodium 50 mg / alberta osides, intermediate 8.6 mg oral tablet (5 sources) Start: [...] 01/19/2024 Discontinued (Stop Taking at Discharge) nystatin [id number] unt/ml topic al cream (8 sources) Polyene [...] Start: 01-12-2024 End: 02-11-2024 polyethylene glycol 3350 81035 mg powder for oral solution (6 sources) [...] 12-22-2023 01-17-2024 Chronic Calculus of urinary tract (3 sources) Personal history of urinary calculi; 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: [Kidney stone] Onset: 11-19-2022 Episodic Esophageal disorders (9 sources) Gastroesophageal reflux disease without esophagitis; 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: [Gastro-esophageal reflux disease without esophagitis] Onset: 01-17-2024 01-17-2024 Chronic Fracture of upper limb (18 sources) Closed fracture of hand; 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: [Unspecified fracture of unspecified wrist and hand, initial encounter for closed fracture] Onset: 01-17-2024 01-17-2024 Episodic Genitourinary symptoms and ill-defined conditions (11 sources) Mixed urinary incontinence; 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: [Mixed incontinence] Onset: 01-17-2024 01-17-2024 Chronic Gout and other crystal arthropathies (11 sources) Gout, unspecified; 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: [Gout] Onset: 11-19-2022 01-17-2024 Chronic Malaise and fatigue (1 source) Other fatigue; 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: [Other fatigue] Onset: 09-18-2023 Episodic Osteoarthritis (14 sources) Unspecified osteoarthritis, unspecified site; 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: [Osteoarthritis of left hip joint] Onset: 11-19-2022 01-11-2024 Chronic Other aftercare (1 source) Other residential (current) drug therapy; 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: [OTH USP CURRENT DRUG THERAPY] Onset: 11-19-2022 Episodic Other aftercare (1 source) exterminator termite (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) use of non-steroidal anti-inflammatories (NSAID); 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: [USP USE NSAID] Onset: 11-19-2022 Episodic Other aftercare (1 source) Long-term current use of anticoagulant; 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: [exterminator termite (current) use of anticoagulants] Onset: 07-28-2024 Episodic Other and ill-defined heart disease (1 [...] artificial hip joint] Onset: 01-19-2024 Chronic Other diseases of kidney and ureters (1 source) Urinary tract obstruction; 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: [Hydronephrosis with renal and ureteral calculous obstruction] Onset: 07-28-2024 Episodic Other nervous system disorders (1 source) Other [...] TRACT] Onset: 11-19-2022 Episodic Residual codes; unclassified (11 sources) Absent kidney; 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: [Acquired absence of [...] [Pain in other specified joint] Onset: 01-11-2024 Unclassified (1 source) Drug therapy finding 07-28-2024 Unclassified (1 source) Obstructive hydronephrosis 07-28-2024 Past or Other Problems Problem Classification Problem [...] Test Name Value Interpretation Reference Range Facility Ambulatory Visit Summaryon 0 07-28-2024 Ambulatory Visit Summary Ambulatory Visit Summary [facility] M :1940 Visit Date:07/28/2024 Ambulatory Visit Instructions Your Diagnosis Ureteral stone with hydronephrosis Urge incontinence Kidney stone Solitary kidney, acquired Anticoagulated Your Care Team Attending Physician - Cyn Garza MD Primary Care Physician - ERIK ADAME DO This Is Your Medications List mirabegron (mirabegron 50 mg oral tablet, extended release) Contact prescribing physician if questions or concerns acetaminophen-hydrocod one (acetaminophen-hydroco done 325 mg-5 mg oral tablet) allopurinol (allopurinol 100 mg Tab) apixaban (Eliquis 5 mg oral tablet) cholecalciferol cyanocobalamin (cyanocobalamin 1000 mcg oral tablet, extended release) docusate ferrous sulfate magnesium oxide (magnesium oxide 400 mg Tab) omeprazole (omeprazole 20 mg Cap-DR) [Image Removed: STOP]Stop taking these medications tolterodine (tolterodine 4 mg Cap-ER) Procedures Performed Cholecystectomy, Hip replacement, Hysterectomy, Knee replacement, Nephrectomy. Discharge Vitals Heart Rate (Peripheral) 84 Blood Pressure 122/71 Height 158 cm Height 62 in Weight 96 kg Weight 211.644 lb BMI 38.46 What to do next You Need to Schedule the Following Appointments Follow Up with Greg AL, Cyn Chin, URL, URO When: Where: Medications What How Much When Instructions New mirabegron (mirabegron 50 mg oral tablet, extended release) 1 Tablets By Mouth Every day Duration: 30 Days Refills: 11 Pickup at [facility]/pharmacy #[id number] Unchanged acetaminophen-hydrocod one (acetaminophen-hydroco done 325 mg-5 mg oral tablet) Contact prescribing physician if questions or concerns Unchanged allopurinol (allopurinol 100 mg Tab) Contact prescribing physician if questions or concerns Unchanged apixaban (Eliquis 5 mg oral tablet) Contact prescribing physician if questions or concerns Unchanged cholecalciferol Contact prescribing physician if questions or concerns Unchanged cyanocobalamin (cyanocobalamin 1000 mcg oral tablet, extended release) 1 Tablets By Mouth Every day Contact prescribing physician if questions or concerns Unchanged docusate Contact prescribing physician if questions or concerns Unchanged ferrous sulfate By Mouth Contact prescribing physician if questions or concerns Unchanged magnesium oxide (magnesium oxide 400 mg Tab) Contact prescribing physician if questions or concerns Unchanged omeprazole (omeprazole 20 mg Cap-DR) Contact prescribing physician if questions or concerns Pharmacy Information [facility]/pharmacy #[id number]: [address], [place] [phone] What When Comments Stop Taking tolterodine (tolterodine 4 mg Cap-ER) Allergies morphine (Vomiting) Problems Ongoing - Any problem that you are currently receiving treatment for. Anticoagulated H/O: hysterectomy Kidney stone Solitary kidney, acquired Ureteral stone with hydronephrosis Urge incontinence Patient Survey You may receive a survey via text or e-mail asking about your office visit. Please share your experience with us by completing your survey. We appreciate your feedback and thank you for choosing us for your care. Education Materials Laser Therapy for Kidney Stones, Care After After laser therapy for kidney stones, it is common to have: ??? Pain. ??? A burning feeling when you pee (urinate). ??? Small amounts of blood in your pee (urine). ??? A need to pee a lot. ??? Parts of the kidney stone in your pee. ??? Mild discomfort in your back when you pee. You may have this if you had a small mesh tube (stent) placed during the procedure. Follow these instructions at home: Medicines ??? Take [id number] and prescription medicines only as told by your health care provider. ??? If you were prescribed antibiotics, take them as told by your provider. Do not stop using the antibiotic even if you start to feel better. ??? Ask your provider if the medicine prescribed to you: ? Requires you to avoid driving or using machinery. ? Can cause constipation. You may need to take these actions to prevent or treat constipation: ? Drink enough fluid to keep your pee pale yellow. ? Take fxiy-ryr-zmrklgl or prescription medicines. ? Eat foods that are high in fiber, such as beans, whole grains, and fresh fruits and vegetables. ? Limit foods that are high in fat and processed sugars, such as fried or sweet foods. Activity ??? If you were given a sedative during the procedure, it can affect you for several hours. Do not drive or operate machinery until your provider says that it is safe. ??? Return to your normal activities as told by your provider. Ask your provider what activities are safe for you. General instructions ??? Your provider may recommend that you drink a lot of water for a few hours after your procedure. If you have heart or kidney diseas (more content not included)... Normal [facility] Urology Office/Clinic Noteon 07-28-2024 Urology Office/Clinic Note Urology Office/Clinic Note Chief Complaint 1 WEEK F/U HPI Staff 83 year old female presents for week f/u for [facility] INPT s/p cytoscopy 07/18/24 and discuss stone treatment. Prev dx: Kidney stone, Solitary kidney Dysuria: no Incomplete bladder emptying: no Hematuria: no Frequency: 2-3 hours Urgency: yes Nocturia: 1x Stream: steady stream Leaking: yes Post void dripping: no Wearing pads/ Depends: pad Urge incontinence: yes Stress incontinence: yes Incontinence without Sensory Awareness: no Abdominal pain: no Flank pain: left sided Sexual complaints: _ BBS: 18 History of Present Illness Tests reviewed: UA, consult note, op note, ucx I have reviewed the previous health record information and history for this patient from [facility]. I have reviewed and verified the staff HPI to be accurate for this encounter. Review of Systems PHQ Score Initial Depression Screen Score: 0 SCORE ROS - Provider Constitutional: denies weight loss, denies hot flashes. Eyes: denies eye problems. Gastrointestinal: denies nausea, denies vomiting. Cardiovascular: denies chest pain or angina. Integumentary: no dryness Musculoskeletal: denies musculoskeletal symptoms. ENMT: denies otolaryngeal symptoms. Respiratory: no shortness of breath. Heme/Lymph: denies easy bleeding tendency, denies easy bruising tendency. Psychiatric: no confusion, no anxiety. Genitourinary: See HPI. Physical Exam Vitals & Measurements HR: 84(Peripheral) BP: 122/71 HT: 62 in HT: 158 cm WT: 96 kg WT: 211.644 lb BMI: 38.46 General Appearance: alert, no distress, well nourished, well developed female. Assessment/Plan Cuate is an 83 yo female new pt following up to urology consult and stent placement on 07/18/24. Pt accompanied by an adult female today, daughter 1. Ureteral stone with hydronephrosis (N13.2: Hydronephrosis with renal and ureteral calculous obstruction) CT AP wo con 07/18/24 [facility] - Obstructing 8.3 x 7.2 mm stone within the proximal L ureter, just distal to L UPJ with moderate L pelvocaliectasis. 5.9 mm stone L renal pelvis. Moderate cortical scarring along contour of L kidney. No mass lesion. Ucx - >100k mixed skin. Levaquin x 2 wks. Urology consult 07/18/24 due to L proximal ureteral stone, UTI, solitary kidney. S/p cysto, L RPG, L stent placement, catheter placement 07/18/24. UA shows large blood and small leuks. Pt has stent. -Will cont to monitor for resolution after stent removed and stones treated. Having same renal pain just not as severe. Has noticed small stones passing. Not stones since nephrectomy until pt started drinking daily protein drink. Drinking 4 glasses of water daily plus other fluids. Discussed metabolic workup including 24 hour urine and blood work for stone prevention. Discussed surgical intervention options including ESWL if visible on x-ray (less invasive, lower stone free rate) and ureteroscopy/laser litho with stent placement (more invasive, higher stone free rate). Risks and benefits of each discussed. ESWL not recommended since pt AC and greater risks (like hematoma) given pt has solitary kidney. Pt agreeable with laser litho. -Pt elects to proceed with metabolic workup after #1 resolved. -Complete 2 wk abx -Will schedule cysto, L URS, L laser litho, stent exchange. The procedural risks, benefits, details, and treatment alternatives have been discussed with the patient. These include bleeding, infection, inability to break or retrieve all of the stone, injury to the ureter (the tube which connects the kidney to the bladder), injury to the kidney scarring of the ureter, and need for repeat procedures, among others. Full informed consent has been obtained. Will order General anesthesia. 2. Urge incontinence (N39.41: Urge incontinence) Small bladder noted on scope/stent placement. Contributes to overactivity. Pt wears pad. Relaxes to void since nephrectomy. Taking Tolterodine 4 mg ER in addition to Vesicare 10 mg qd. Severe dry mouth. Bothersome. Offered to try other med with less SEs. Pt elects to try. -Reassess urinary sxs and PVR after stone procedure/stent removal. -Stop both OAB meds and start Myrbetriq 50 mg qd. SEs discussed. Generic requested. Sent to [facility]. Can add one anticholinergic if sxs not satisfactorily controlled by beta-3 alone. -PVR in future after stent out, consider botox 3. Kidney stone (N20.0: Calculus of kidney) CT AP wo con 07/18/24 [facility] - 5.9 mm stone L renal pelvis. -Will address at time of ureteral stone above Ordered: Urnls Dip Stick Auto w/o Microscopy POC [id number] 4. 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 CT AP wo con 07/18/24 [facility] - Absence of R kidney. Moderate cortical scarring along contour of L kidney. No mass lesion. -Counseled on risk of renal failure with blockage of remaining kidney. Will treat kidney stones as they appear to prevent renal failure 5. Anticoagulated (Z79.01: care home (current) use of a (more content not included)... Normal [facility] Comment on above: Result Comment: Elec tronically Signed By: Cyn Garza MD\.br\Date and Time Signed: 07/28/24 10:51 EST\.br\Electronically Co-Signed By: Deisi Rowell\.br\Date and Time Co-Signed: 07/28/24 10:35 EST Urine Cultureon 07-18-2024 Bacteria identified Cx Nom (U) >100,000 colonies/ml mixed bacterial skin contaminants 2 Days PERFORMED BY: [facility] [address] [id number] PATHOLOGIST SENIOR ASIC DESIGN ENGINEER MERLE TAO M.D. Normal [facility] Comment on above: Performed By: #### C UU #### [facility] [address] [place] [address] [facility] BMP FASTINGon 02-11-2024 Anion gap [Moles/Vol] 3 mmol/L Low 8-16 [facility] Calcium [Mass/Vol] 9.1 mg/dL Normal 8.4-10.2 [facility] Chloride [Moles/Vol] 104 mmol/L Normal 98-107 [facility] Comment on above: Result Comment: Shonda matthews note: Triglyceride levels of 600mg/dL or higher may positively bias chloride results by approximately 2.1 mmol CO2 [Moles/Vol] 28 mmol/L Normal 22-30 [facility] Creatinine [Mass/Vol] 0.80 mg/dL Normal 0.7-1.2 [facility] EST. GFR, 89 ml/min/1.73sq.m [facility] EST. GFR,Non 73 ml/min/1.73sq.m [facility] GFR Information Average GFR for 70+ years old = 75. Normal [facility] Comment on above: Result Comment: Incendiaries Supervisor aviva Kidney disease, GFR = <60. Kidney failure, GFR = <15. The GFR estimate is not adjusted for extreme body surface area or acute process, nor has it been validated for women or ethnic groups other than and . Glucose [Mass/Vol] 98 mg/dL Normal 70-100 [facility] Comment on above: Result Comment: NORMAL <100 mg/dL PREDIABETES 101-126 mg/dL DIABETES 126 mg/dL or higher Potassium [Moles/Vol] 4.5 mmol/L Normal 3.5-5.1 [facility] Sodium [Moles/Vol] 135 mmol/L Low 137-145 [facility] Urea nitrogen [Mass/Vol] 16 mg/dL Normal 7-20 [facility] C REACTIVE PROTEINon 024 CRP [Mass/Vol] 22.8 mg/L High 0-10 [facility] CBCon 02-11-2024 ABSOLUTE BAS 0.0 10*3/uL Normal 0.0-0.2 [facility] ABSOLUTE EOS 0.2 10*3/uL Normal 0.0-0.7 [facility] ABSOLUTE NEUTROPHIL COUNT 2.8 10*3/uL Normal 1.4-6.5 [facility] Basophils/100 WBC (Bld) 1.0 % Normal 0.0-2.0 [facility] DTYPE AUTO DIFF Normal [facility] Eosinophils/100 WBC (Bld) 4.1 % Normal 0.0-11.0 [facility] Lymphocytes (Bld) [#/Vol] 1.3 10*3/uL Normal 1.2-3.4 [facility] Lymphocytes/100 WBC (Bld) 25.8 % Normal 20.0-55.0 [facility] Monocytes (Bld) [#/Vol] 0.7 10*3/uL Normal 0.0-0.7 [facility] Monocytes/100 WBC (Bld) 13.4 % High 0.0-10.0 [facility] Neutrophils/100 WBC (Bld) 55.7 % Normal 37.0-75.0 [facility] Erythrocyte distribution width (RBC) [Ratio] 15.2 % High 11.5-14.5 [facility] Hematocrit (Bld) [Volume fraction] 31.9 % Low 36.0-48.0 [facility] Hemoglobin (Bld) [Mass/Vol] 10.7 g/dL Low 12.0-16.0 [facility] MCH (RBC) [Entitic mass] 32.2 pg Normal 26.0-35.0 [facility] MCHC (RBC) [Mass/Vol] 33.6 g/dL Normal 27.0-37.0 [facility] MCV (RBC) [Entitic vol] 96.1 fL Normal 80.0-100.0 [facility] Platelet mean volume (Bld) [Entitic vol] 7.2 fL Low 7.4-11.0 [facility] Platelets (Bld) [#/Vol] 368 10*3/uL Normal 130-400 [facility] RBC (Bld) [#/Vol] 3.32 10*6/uL Low 4.0-5.4 [facility] WBC (Bld) [#/Vol] 5.0 10*3/uL Normal 3.6-11.0 [facility] Laboratory - Chemistry and C hemistry - challengeon 02-11-2024 Anion gap [Moles/Vol] 3 mmol/L Low [facility] Calcium [Mass/Vol] 9.1 mg/dL [facility] Chloride [Moles/Vol] 104 mmol/L [facility] CO2 [Moles/Vol] 28 mmol/L [facility] Creatinine [Mass/Vol] 0.80 mg/dL [facility] CRP [Mass/Vol] 22.8 mg/L High 0 - 10 MG/L [facility] GFR/1.73 sq M.predicted among blacks MDRD (S/P/Bld) [Vol rate/Area] 89 mL/min/{1.73_m2} ml/min/1.73sq .m [facility] GFR/1.73 sq M.predicted among non-blacks MDRD (S/P/Bld) [Vol rate/Area] 73 mL/min/{1.73_m2} ml/min/1.73sq .m [facility] Glucose post fast [Mass/Vol] 98 mg/dL [facility] Potassium [Moles/Vol] 4.5 mmol/L [facility] Sodium [Moles/Vol] 135 mmol/L Low [facility] Urea nitrogen [Mass/Vol] 16 mg/dL [facility] Laboratory - Hematology and Cell countson 02-11-2024 Basophils/100 WBC (Bld) 1.0 % 0.0 - 2.0 % [facility] Differential cell count method Nom (Bld) AUTO DIFF % [facility] Eosinophils (Bld) [#/Vol] 0.2 10*3/uL 0.0 - 0.7 10*3/uL [facility] Eosinophils/100 WBC (Bld) 4.1 % 0.0 - 11.0 % [facility] Erythrocyte distribution width (RBC) [Ratio] 15.2 % High 11.5 - 14.5 % [facility] Hematocrit (Bld) [Volume fraction] 31.9 % Low 36.0 - 48.0 % [facility] Hemoglobin (Bld) [Mass/Vol] 10.7 g/dL Low [facility] Lymphocytes (Bld) [#/Vol] 1.3 10*3/uL 1.2 - 3.4 10*3/uL [facility] Lymphocytes/100 WBC (Bld) 25.8 % 20.0 - 55.0 % [facility] MCH (RBC) [Entitic mass] 32.2 pg 26.0 - 35.0 PG [facility] MCHC (RBC) [Mass/Vol] 33.6 g/dL [facility] MCV (RBC) [Entitic vol] 96.1 fL [facility] Monocytes (Bld) [#/Vol] 0.7 10*3/uL 0.0 - 0.7 10*3/uL [facility] Monocytes/100 WBC (Bld) 13.4 % High 0.0 - 10.0 % [facility] Neutrophils (Bld) [#/Vol] 2.8 10*3/uL 1.4 - 6.5 10*3/uL [facility] Neutrophils/100 WBC (Bld) 55.7 % 37.0 - 75.0 % [facility] Platelet mean volume (Bld) [Entitic vol] 7.2 fL Low [facility] Platelets (Bld) [#/Vol] 368 10*3/uL 130 - 400 10*3/uL [facility] RBC (Bld) [#/Vol] 3.32 10*6/uL Low 4.0 - 5.4 10*6/uL [facility] WBC (Bld) [#/Vol] 5.0 10*3/uL 3.6 - 11.0 10*3/uL [facility] No Panel Informationon 02-10 GFR COMMENT Average GFR for 70+ years old = 75. [facility] Interpretation and review of laboratory results Abnormal [facility] ABSOLUTE BASOPHIL COUNT 0.0 10*3/uL 0.0 - 0.2 10*3/uL [facility] Interpretation and review of laboratory results Abnormal [facility] BMP FASTINGon 02-10-2024 Anion gap [Moles/Vol] 1 mmol/L Low 8-16 [facility] Calcium [Mass/Vol] 8.8 mg/dL Normal 8.4-10.2 [facility] Chloride [Moles/Vol] 105 mmol/L Normal 98-107 [facility] Comment on above: Result Comment: Shonda matthews note: Triglyceride levels of 600mg/dL or higher may positively bias chloride results by approximately 2.1 mmol CO2 [Moles/Vol] 29 mmol/L Normal 22-30 [facility] Creatinine [Mass/Vol] 0.80 mg/dL Normal 0.7-1.2 [facility] EST. GFR, 89 ml/min/1.73sq.m [facility] EST. GFR,Non 73 ml/min/1.73sq.m [facility] GFR Information Average GFR for 70+ years old = 75. Normal [facility] Comment on above: Result Comment: [employer] aviva Kidney disease, GFR = <60. Kidney failure, GFR = <15. The GFR estimate is not adjusted for extreme body surface area or acute process, nor has it been validated for women or ethnic groups other than and . Glucose [Mass/Vol] 97 mg/dL Normal 70-100 [facility] Comment on above: Result Comment: NORMAL <100 mg/dL PREDIABETES 101-126 mg/dL DIABETES 126 mg/dL or higher Potassium [Moles/Vol] 4.3 mmol/L Normal 3.5-5.1 [facility] Sodium [Moles/Vol] 135 mmol/L Low 137-145 [facility] Urea nitrogen [Mass/Vol] 19 mg/dL Normal 7-20 [facility] C REACTIVE PROTEINon 024 CRP [Mass/Vol] 18.6 mg/L High 0-10 [facility] CBCon 02-10-2024 ABSOLUTE BAS 0.0 10*3/uL Normal 0.0-0.2 [facility] ABSOLUTE EOS 0.2 10*3/uL Normal 0.0-0.7 [facility] ABSOLUTE NEUTROPHIL COUNT 3.8 10*3/uL Normal 1.4-6.5 [facility] Basophils/100 WBC (Bld) 0.6 % Normal 0.0-2.0 [facility] DTYPE AUTO DIFF Normal [facility] Eosinophils/100 WBC (Bld) 3.1 % Normal 0.0-11.0 [facility] Lymphocytes (Bld) [#/Vol] 1.6 10*3/uL Normal 1.2-3.4 [facility] Lymphocytes/100 WBC (Bld) 24.9 % Normal 20.0-55.0 [facility] Monocytes (Bld) [#/Vol] 0.7 10*3/uL Normal 0.0-0.7 [facility] Monocytes/100 WBC (Bld) 11.0 % High 0.0-10.0 [facility] Neutrophils/100 WBC (Bld) 60.4 % Normal 37.0-75.0 [facility] Erythrocyte distribution width (RBC) [Ratio] 15.2 % High 11.5-14.5 [facility] Hematocrit (Bld) [Volume fraction] 31.7 % Low 36.0-48.0 [facility] Hemoglobin (Bld) [Mass/Vol] 10.7 g/dL Low 12.0-16.0 [facility] MCH (RBC) [Entitic mass] 32.1 pg Normal 26.0-35.0 [facility] MCHC (RBC) [Mass/Vol] 33.6 g/dL Normal 27.0-37.0 [facility] MCV (RBC) [Entitic vol] 95.6 fL Normal 80.0-100.0 [facility] Platelet mean volume (Bld) [Entitic vol] 7.2 fL Low 7.4-11.0 [facility] Platelets (Bld) [#/Vol] 369 10*3/uL Normal 130-400 [facility] RBC (Bld) [#/Vol] 3.32 10*6/uL Low 4.0-5.4 [facility] WBC (Bld) [#/Vol] 6.3 10*3/uL Normal 3.6-11.0 [facility] Laboratory - Chemistry and C hemistry - challengeon 02-10-2024 Anion gap [Moles/Vol] 1 mmol/L Low [facility] Calcium [Mass/Vol] 8.8 mg/dL [facility] Chloride [Moles/Vol] 105 mmol/L [facility] CO2 [Moles/Vol] 29 mmol/L [facility] Creatinine [Mass/Vol] 0.80 mg/dL [facility] CRP [Mass/Vol] 18.6 mg/L High 0 - 10 MG/L [facility] GFR/1.73 sq M.predicted among blacks MDRD (S/P/Bld) [Vol rate/Area] 89 mL/min/{1.73_m2} ml/min/1.73sq .m [facility] GFR/1.73 sq M.predicted among non-blacks MDRD (S/P/Bld) [Vol rate/Area] 73 mL/min/{1.73_m2} ml/min/1.73sq .m [facility] Glucose post fast [Mass/Vol] 97 mg/dL [facility] Potassium [Moles/Vol] 4.3 mmol/L [facility] Sodium [Moles/Vol] 135 mmol/L Low [facility] Urea nitrogen [Mass/Vol] 19 mg/dL [facility] Laboratory - Hematology and Cell countson 02-10-2024 Basophils/100 WBC (Bld) 0.6 % 0.0 - 2.0 % [facility] Differential cell count method Nom (Bld) AUTO DIFF % [facility] Eosinophils (Bld) [#/Vol] 0.2 10*3/uL 0.0 - 0.7 10*3/uL [facility] Eosinophils/100 WBC (Bld) 3.1 % 0.0 - 11.0 % [facility] Erythrocyte distribution width (RBC) [Ratio] 15.2 % High 11.5 - 14.5 % [facility] Hematocrit (Bld) [Volume fraction] 31.7 % Low 36.0 - 48.0 % [facility] Hemoglobin (Bld) [Mass/Vol] 10.7 g/dL Low [facility] Lymphocytes (Bld) [#/Vol] 1.6 10*3/uL 1.2 - 3.4 10*3/uL [facility] Lymphocytes/100 WBC (Bld) 24.9 % 20.0 - 55.0 % [facility] MCH (RBC) [Entitic mass] 32.1 pg 26.0 - 35.0 PG [facility] MCHC (RBC) [Mass/Vol] 33.6 g/dL [facility] MCV (RBC) [Entitic vol] 95.6 fL [facility] Monocytes (Bld) [#/Vol] 0.7 10*3/uL 0.0 - 0.7 10*3/uL [facility] Monocytes/100 WBC (Bld) 11.0 % High 0.0 - 10.0 % [facility] Neutrophils (Bld) [#/Vol] 3.8 10*3/uL 1.4 - 6.5 10*3/uL [facility] Neutrophils/100 WBC (Bld) 60.4 % 37.0 - 75.0 % [facility] Platelet mean volume (Bld) [Entitic vol] 7.2 fL Low [facility] Platelets (Bld) [#/Vol] 369 10*3/uL 130 - 400 10*3/uL [facility] RBC (Bld) [#/Vol] 3.32 10*6/uL Low 4.0 - 5.4 10*6/uL [facility] WBC (Bld) [#/Vol] 6.3 10*3/uL 3.6 - 11.0 10*3/uL [facility] No Panel Informationon 02-09 GFR COMMENT Average GFR for 70+ years old = 75. [facility] Interpretation and review of laboratory results Abnormal [facility] ABSOLUTE BASOPHIL COUNT 0.0 10*3/uL 0.0 - 0.2 10*3/uL [facility] Interpretation and review of laboratory results Abnormal [facility] BMP FASTINGon 02-09-2024 Anion gap [Moles/Vol] 3 mmol/L Low 8-16 [facility] Calcium [Mass/Vol] 9.1 mg/dL Normal 8.4-10.2 [facility] Chloride [Moles/Vol] 104 mmol/L Normal 98-107 [facility] Comment on above: Result Comment: Shonda matthews note: Triglyceride levels of 600mg/dL or higher may positively bias chloride results by approximately 2.1 mmol CO2 [Moles/Vol] 28 mmol/L Normal 22-30 [facility] Creatinine [Mass/Vol] 0.90 mg/dL Normal 0.7-1.2 [facility] EST. GFR, 77 ml/min/1.73sq.m Normal [facility] EST. GFR,Non 64 ml/min/1.73sq.m Normal [facility] GFR Information Average GFR for 70+ years old = 75. Normal [facility] Comment on above: Result Comment: [employer]visor aviva Kidney disease, GFR = <60. Kidney failure, GFR = <15. The GFR estimate is not adjusted for extreme body surface area or acute process, nor has it been validated for women or ethnic groups other than and . Glucose [Mass/Vol] 103 mg/dL High 70-100 [facility] Comment on above: Result Comment: NORMAL <100 mg/dL PREDIABETES 101-126 mg/dL DIABETES 126 mg/dL or higher Potassium [Moles/Vol] 4.5 mmol/L Normal 3.5-5.1 [facility] Sodium [Moles/Vol] 135 mmol/L Low 137-145 [facility] Urea nitrogen [Mass/Vol] 20 mg/dL Normal 7-20 [facility] C REACTIVE PROTEINon 024 CRP [Mass/Vol] 21.2 mg/L High 0-10 [facility] CBCon 02-09-2024 ABSOLUTE BAS 0.1 10*3/uL Normal 0.0-0.2 [facility] ABSOLUTE EOS 0.2 10*3/uL Normal 0.0-0.7 [facility] ABSOLUTE NEUTROPHIL COUNT 3.7 10*3/uL Normal 1.4-6.5 [facility] Basophils/100 WBC (Bld) 0.9 % Normal 0.0-2.0 [facility] DTYPE AUTO DIFF Normal [facility] Eosinophils/100 WBC (Bld) 2.9 % Normal 0.0-11.0 [facility] Lymphocytes (Bld) [#/Vol] 1.8 10*3/uL Normal 1.2-3.4 [facility] Lymphocytes/100 WBC (Bld) 27.8 % Normal 20.0-55.0 [facility] Monocytes (Bld) [#/Vol] 0.7 10*3/uL Normal 0.0-0.7 [facility] Monocytes/100 WBC (Bld) 10.8 % High 0.0-10.0 [facility] Neutrophils/100 WBC (Bld) 57.6 % Normal 37.0-75.0 [facility] Erythrocyte distribution width (RBC) [Ratio] 15.1 % High 11.5-14.5 [facility] Hematocrit (Bld) [Volume fraction] 34.2 % Low 36.0-48.0 [facility] Hemoglobin (Bld) [Mass/Vol] 11.4 g/dL Low 12.0-16.0 [facility] MCH (RBC) [Entitic mass] 32.0 pg Normal 26.0-35.0 [facility] MCHC (RBC) [Mass/Vol] 33.4 g/dL Normal 27.0-37.0 [facility] MCV (RBC) [Entitic vol] 96.0 fL Normal 80.0-100.0 [facility] Platelet mean volume (Bld) [Entitic vol] 7.4 fL Normal 7.4-11.0 [facility] Platelets (Bld) [#/Vol] 401 10*3/uL High 130-400 [facility] RBC (Bld) [#/Vol] 3.56 10*6/uL Low 4.0-5.4 [facility] WBC (Bld) [#/Vol] 6.4 10*3/uL Normal 3.6-11.0 [facility] Laboratory - Chemistry and C hemistry - challengeon 02-09-2024 Anion gap [Moles/Vol] 3 mmol/L Low [facility] Calcium [Mass/Vol] 9.1 mg/dL [facility] Chloride [Moles/Vol] 104 mmol/L [facility] CO2 [Moles/Vol] 28 mmol/L [facility] Creatinine [Mass/Vol] 0.90 mg/dL [facility] CRP [Mass/Vol] 21.2 mg/L High 0 - 10 MG/L [facility] GFR/1.73 sq M.predicted among blacks MDRD (S/P/Bld) [Vol rate/Area] 77 mL/min/{1.73_m2} ml/min/1.73sq .m [facility] GFR/1.73 sq M.predicted among non-blacks MDRD (S/P/Bld) [Vol rate/Area] 64 mL/min/{1.73_m2} ml/min/1.73sq .m [facility] Glucose post fast [Mass/Vol] 103 mg/dL High [facility] Potassium [Moles/Vol] 4.5 mmol/L [facility] Sodium [Moles/Vol] 135 mmol/L Low [facility] Urea nitrogen [Mass/Vol] 20 mg/dL [facility] Laboratory - Hematology and Cell countson 02-09-2024 Basophils/100 WBC (Bld) 0.9 % 0.0 - 2.0 % [facility] Differential cell count method Nom (Bld) AUTO DIFF % [facility] Eosinophils (Bld) [#/Vol] 0.2 10*3/uL 0.0 - 0.7 10*3/uL [facility] Eosinophils/100 WBC (Bld) 2.9 % 0.0 - 11.0 % [facility] Erythrocyte distribution width (RBC) [Ratio] 15.1 % High 11.5 - 14.5 % [facility] Hematocrit (Bld) [Volume fraction] 34.2 % Low 36.0 - 48.0 % [facility] Hemoglobin (Bld) [Mass/Vol] 11.4 g/dL Low [facility] Lymphocytes (Bld) [#/Vol] 1.8 10*3/uL 1.2 - 3.4 10*3/uL [facility] Lymphocytes/100 WBC (Bld) 27.8 % 20.0 - 55.0 % [facility] MCH (RBC) [Entitic mass] 32.0 pg 26.0 - 35.0 PG [facility] MCHC (RBC) [Mass/Vol] 33.4 g/dL [facility] MCV (RBC) [Entitic vol] 96.0 fL [facility] Monocytes (Bld) [#/Vol] 0.7 10*3/uL 0.0 - 0.7 10*3/uL [facility] Monocytes/100 WBC (Bld) 10.8 % High 0.0 - 10.0 % [facility] Neutrophils (Bld) [#/Vol] 3.7 10*3/uL 1.4 - 6.5 10*3/uL [facility] Neutrophils/100 WBC (Bld) 57.6 % 37.0 - 75.0 % [facility] Platelet mean volume (Bld) [Entitic vol] 7.4 fL [facility] Platelets (Bld) [#/Vol] 401 10*3/uL High 130 - 400 10*3/uL [facility] RBC (Bld) [#/Vol] 3.56 10*6/uL Low 4.0 - 5.4 10*6/uL [facility] WBC (Bld) [#/Vol] 6.4 10*3/uL 3.6 - 11.0 10*3/uL [facility] No Panel Informationon 02-08 GFR COMMENT Average GFR for 70+ years old = 75. [facility] Interpretation and review of laboratory results Abnormal [facility] ABSOLUTE BASOPHIL COUNT 0.1 10*3/uL 0.0 - 0.2 10*3/uL [facility] Interpretation and review of laboratory results Abnormal [facility] BMP FASTINGon 02-08-2024 Anion gap [Moles/Vol] Negative Normal 8-16 [facility] Calcium [Mass/Vol] 8.9 mg/dL Normal 8.4-10.2 [facility] Chloride [Moles/Vol] 104 mmol/L Normal 98-107 [facility] Comment on above: Result Comment: Shonda matthews note: Triglyceride levels of 600mg/dL or higher may positively bias chloride results by approximately 2.1 mmol CO2 [Moles/Vol] 30 mmol/L Normal 22-30 [facility] Creatinine [Mass/Vol] 0.80 mg/dL Normal 0.7-1.2 [facility] EST. GFR, 89 ml/min/1.73sq.m Normal [facility] EST. GFR,Non 73 ml/min/1.73sq.m Normal [facility] GFR Information Average GFR for 70+ years old = 75. Normal [facility] Comment on above: Result Comment: [employer]visor aviva Kidney disease, GFR = <60. Kidney failure, GFR = <15. The GFR estimate is not adjusted for extreme body surface area or acute process, nor has it been validated for women or ethnic groups other than and . Glucose [Mass/Vol] 96 mg/dL Normal 70-100 [facility] Comment on above: Result Comment: NORMAL <100 mg/dL PREDIABETES 101-126 mg/dL DIABETES 126 mg/dL or higher Potassium [Moles/Vol] 4.3 mmol/L Normal 3.5-5.1 [facility] Sodium [Moles/Vol] 133 mmol/L Low 137-145 [facility] Urea nitrogen [Mass/Vol] 14 mg/dL Normal 7-20 [facility] C REACTIVE PROTEINon 024 CRP [Mass/Vol] 22.2 mg/L High 0-10 [facility] CBCon 02-08-2024 ABSOLUTE BAS 0.1 10*3/uL Normal 0.0-0.2 [facility] ABSOLUTE EOS 0.2 10*3/uL Normal 0.0-0.7 [facility] ABSOLUTE NEUTROPHIL COUNT 3.2 10*3/uL Normal 1.4-6.5 [facility] Basophils/100 WBC (Bld) 1.0 % Normal 0.0-2.0 [facility] DTYPE AUTO DIFF Normal [facility] Eosinophils/100 WBC (Bld) 3.5 % Normal 0.0-11.0 [facility] Lymphocytes (Bld) [#/Vol] 1.5 10*3/uL Normal 1.2-3.4 [facility] Lymphocytes/100 WBC (Bld) 26.3 % Normal 20.0-55.0 [facility] Monocytes (Bld) [#/Vol] 0.6 10*3/uL Normal 0.0-0.7 [facility] Monocytes/100 WBC (Bld) 11.2 % High 0.0-10.0 [facility] Neutrophils/100 WBC (Bld) 58.0 % Normal 37.0-75.0 [facility] Erythrocyte distribution width (RBC) [Ratio] 15.3 % High 11.5-14.5 [facility] Hematocrit (Bld) [Volume fraction] 30.8 % Low 36.0-48.0 [facility] Hemoglobin (Bld) [Mass/Vol] 10.4 g/dL Low 12.0-16.0 [facility] MCH (RBC) [Entitic mass] 32.1 pg Normal 26.0-35.0 [facility] MCHC (RBC) [Mass/Vol] 33.7 g/dL Normal 27.0-37.0 [facility] MCV (RBC) [Entitic vol] 95.1 fL Normal 80.0-100.0 [facility] Platelet mean volume (Bld) [Entitic vol] 7.4 fL Normal 7.4-11.0 [facility] Platelets (Bld) [#/Vol] 368 10*3/uL Normal 130-400 [facility] RBC (Bld) [#/Vol] 3.24 10*6/uL Low 4.0-5.4 [facility] WBC (Bld) [#/Vol] 5.5 10*3/uL Normal 3.6-11.0 [facility] ESRon 02-08-2024 ESR (Bld) [Velocity] 75 mm/h High 0-30 [facility] Laboratory - Chemistry and C hemistry - challengeon 02-08-2024 Anion gap [Moles/Vol] Negative [facility] Calcium [Mass/Vol] 8.9 mg/dL [facility] Chloride [Moles/Vol] 104 mmol/L [facility] CO2 [Moles/Vol] 30 mmol/L [facility] Creatinine [Mass/Vol] 0.80 mg/dL [facility] CRP [Mass/Vol] 22.2 mg/L High 0 - 10 MG/L [facility] GFR/1.73 sq M.predicted among blacks MDRD (S/P/Bld) [Vol rate/Area] 89 mL/min/{1.73_m2} ml/min/1.73sq .m [facility] GFR/1.73 sq M.predicted among non-blacks MDRD (S/P/Bld) [Vol rate/Area] 73 mL/min/{1.73_m2} ml/min/1.73sq .m [facility] Glucose post fast [Mass/Vol] 96 mg/dL [facility] Potassium [Moles/Vol] 4.3 mmol/L [facility] Sodium [Moles/Vol] 133 mmol/L Low [facility] Urea nitrogen [Mass/Vol] 14 mg/dL [facility] Laboratory - Hematology and Cell countson 02-08-2024 ESR (Bld) [Velocity] 75 mm/h High [facility] Basophils/100 WBC (Bld) 1.0 % 0.0 - 2.0 % [facility] Differential cell count method Nom (Bld) AUTO DIFF % [facility] Eosinophils (Bld) [#/Vol] 0.2 10*3/uL 0.0 - 0.7 10*3/uL [facility] Eosinophils/100 WBC (Bld) 3.5 % 0.0 - 11.0 % [facility] Erythrocyte distribution width (RBC) [Ratio] 15.3 % High 11.5 - 14.5 % [facility] Hematocrit (Bld) [Volume fraction] 30.8 % Low 36.0 - 48.0 % [facility] Hemoglobin (Bld) [Mass/Vol] 10.4 g/dL Low [facility] Lymphocytes (Bld) [#/Vol] 1.5 10*3/uL 1.2 - 3.4 10*3/uL [facility] Lymphocytes/100 WBC (Bld) 26.3 % 20.0 - 55.0 % [facility] MCH (RBC) [Entitic mass] 32.1 pg 26.0 - 35.0 PG [facility] MCHC (RBC) [Mass/Vol] 33.7 g/dL [facility] MCV (RBC) [Entitic vol] 95.1 fL [facility] Monocytes (Bld) [#/Vol] 0.6 10*3/uL 0.0 - 0.7 10*3/uL [facility] Monocytes/100 WBC (Bld) 11.2 % High 0.0 - 10.0 % [facility] Neutrophils (Bld) [#/Vol] 3.2 10*3/uL 1.4 - 6.5 10*3/uL [facility] Neutrophils/100 WBC (Bld) 58.0 % 37.0 - 75.0 % [facility] Platelet mean volume (Bld) [Entitic vol] 7.4 fL [facility] Platelets (Bld) [#/Vol] 368 10*3/uL 130 - 400 10*3/uL [facility] RBC (Bld) [#/Vol] 3.24 10*6/uL Low 4.0 - 5.4 10*6/uL [facility] WBC (Bld) [#/Vol] 5.5 10*3/uL 3.6 - 11.0 10*3/uL [facility] No Panel Informationon 02-07 Interpretation and review of laboratory results Abnormal [facility] GFR COMMENT Average GFR for 70+ years old = 75. [facility] Interpretation and review of laboratory results Abnormal [facility] ABSOLUTE BASOPHIL COUNT 0.1 10*3/uL 0.0 - 0.2 10*3/uL [facility] Interpretation and review of laboratory results Abnormal [facility] BMP FASTINGon 02-07-2024 Anion gap [Moles/Vol] 1 mmol/L Low 8-16 [facility] Comment on above: Performed By: #### A CBC #### Testing performed at [id number] [place] [address] Calcium [Mass/Vol] 8.8 mg/dL Normal 8.4-10.2 [facility] Comment on above: Performed By: #### A CBC #### Testing performed at [address] [address] Chloride [Moles/Vol] 105 mmol/L Normal 98-107 [facility] Comment on above: Result Comment: Shonda matthews note: Triglyceride levels of 600mg/dL or higher may positively bias chloride results by approximately 2.1 mmol Performed By: #### A CBC #### Testing performed at [address] [address] CO2 [Moles/Vol] 27 mmol/L Normal 22-30 [facility] Comment on above: Performed By: #### A CBC #### Testing performed at [address] [address] Creatinine [Mass/Vol] 0.70 mg/dL Normal 0.7-1.2 [facility] Comment on above: Performed By: #### A CBC #### Testing performed at [address] [address] EST. GFR, 103 ml/min/1.73sq.m [facility] Comment on above: Performed By: #### A CBC #### Testing performed at [address] [address] EST. GFR,Non 85 ml/min/1.73sq.m [facility] Comment on above: Performed By: #### A CBC #### Testing performed at [address] [address] GFR Information Average GFR for 70+ years old = 75. [facility] Comment on above: Result Comment: [employer]visor aviva Kidney disease, GFR = <60. Kidney failure, GFR = <15. The GFR estimate is not adjusted for extreme body surface area or acute process, nor has it been validated for women or ethnic groups other than and . Performed By: #### A CBC #### Testing performed at [address] [address] Glucose [Mass/Vol] 95 mg/dL Normal 70-100 [facility] Comment on above: Result Comment: NORMAL <100 mg/dL PREDIABETES 101-126 mg/dL DIABETES 126 mg/dL or higher Performed By: #### A CBC #### Testing performed at [address] [address] Potassium [Moles/Vol] 4.3 mmol/L Normal 3.5-5.1 [facility] Comment on above: Performed By: #### A CBC #### Testing performed at [address] [address] Sodium [Moles/Vol] 133 mmol/L Low 137-145 [facility] Comment on above: Performed By: #### A CBC #### Testing performed at [address] [address] Urea nitrogen [Mass/Vol] 11 mg/dL Normal 7-20 [facility] Comment on above: Performed By: #### A CBC #### Testing performed at [address] [address] C REACTIVE PROTEINon 024 CRP [Mass/Vol] 19.6 mg/L High 0-10 [facility] Comment on above: Performed By: #### A CBC #### Testing performed at [address] [address] CBCon 02-07-2024 ABSOLUTE BAS 0.0 10*3/uL Normal 0.0-0.2 [facility] Comment on above: Performed By: #### A CBC #### Testing performed at [address] [address] ABSOLUTE EOS 0.2 10*3/uL Normal 0.0-0.7 [facility] Comment on above: Performed By: #### A CBC #### Testing performed at [address] [address] ABSOLUTE NEUTROPHIL COUNT 2.8 10*3/uL Normal 1.4-6.5 [facility] Comment on above: Performed By: #### A CBC #### Testing performed at [address] [place] [address] Basophils/100 WBC (Bld) 0.9 % Normal 0.0-2.0 [facility] Comment on above: Performed By: #### A CBC #### Testing performed at [address] [place] [address] DTYPE AUTO DIFF Normal [facility] Comment on above: Performed By: #### A CBC #### Testing performed at [address] [address] Eosinophils/100 WBC (Bld) 3.8 % Normal 0.0-11.0 [facility] Comment on above: Performed By: #### A CBC #### Testing performed at [address] [address] Lymphocytes (Bld) [#/Vol] 1.4 10*3/uL Normal 1.2-3.4 [facility] Comment on above: Performed By: #### A CBC #### Testing performed at [address] [place] [address] Lymphocytes/100 WBC (Bld) 28.3 % Normal 20.0-55.0 [facility] Comment on above: Performed By: #### A CBC #### Testing performed at [address] [place] [address] Monocytes (Bld) [#/Vol] 0.6 10*3/uL Normal 0.0-0.7 [facility] Comment on above: Performed By: #### A CBC #### Testing performed at [address] [place] [address] Monocytes/100 WBC (Bld) 12.4 % High 0.0-10.0 [facility] Comment on above: Performed By: #### A CBC #### Testing performed at [address] [address] Neutrophils/100 WBC (Bld) 54.6 % Normal 37.0-75.0 [facility] Comment on above: Performed By: #### A CBC #### Testing performed at [address] [address] Erythrocyte distribution width (RBC) [Ratio] 16.0 % High 11.5-14.5 [facility] Comment on above: Performed By: #### A CBC #### Testing performed at [address] [address] Hematocrit (Bld) [Volume fraction] 31.7 % Low 36.0-48.0 [facility] Comment on above: Performed By: #### A CBC #### Testing performed at [address] [address] Hemoglobin (Bld) [Mass/Vol] 10.5 g/dL Low 12.0-16.0 [facility] Comment on above: Performed By: #### A CBC #### Testing performed at [address] [address] MCH (RBC) [Entitic mass] 32.5 pg Normal 26.0-35.0 [facility] Comment on above: Performed By: #### A CBC #### Testing performed at [address] [address] MCHC (RBC) [Mass/Vol] 33.1 g/dL Normal 27.0-37.0 [facility] Comment on above: Performed By: #### A CBC #### Testing performed at [address] [address] MCV (RBC) [Entitic vol] 98.4 fL Normal 80.0-100.0 [facility] Comment on above: Performed By: #### A CBC #### Testing performed at [address] [address] Platelet mean volume (Bld) [Entitic vol] 7.2 fL Low 7.4-11.0 [facility] Comment on above: Performed By: #### A CBC #### Testing performed at [place] [place] [address] Platelets (Bld) [#/Vol] 366 10*3/uL Normal 130-400 [facility] Comment on above: Performed By: #### A CBC #### Testing performed at [place] [address] [place] [address] RBC (Bld) [#/Vol] 3.23 10*6/uL Low 4.0-5.4 [facility] Comment on above: Performed By: #### A CBC #### Testing performed at [address] [address] WBC (Bld) [#/Vol] 5.1 10*3/uL Normal 3.6-11.0 [facility] Comment on above: Performed By: #### A CBC #### Testing performed at [address] [address] Laboratory - Chemistry and C hemistry - challengeon 02-07-2024 Anion gap [Moles/Vol] 1 mmol/L Low [facility] Calcium [Mass/Vol] 8.8 mg/dL [facility] Chloride [Moles/Vol] 105 mmol/L [facility] CO2 [Moles/Vol] 27 mmol/L [facility] Creatinine [Mass/Vol] 0.70 mg/dL [facility] CRP [Mass/Vol] 19.6 mg/L High 0 - 10 MG/L [facility] GFR/1.73 sq M.predicted among blacks MDRD (S/P/Bld) [Vol rate/Area] 103 mL/min/{1.73_m2} ml/min/1.73sq .m [facility] GFR/1.73 sq M.predicted among non-blacks MDRD (S/P/Bld) [Vol rate/Area] 85 mL/min/{1.73_m2} ml/min/1.73sq .m [facility] Glucose post fast [Mass/Vol] 95 mg/dL [facility] Potassium [Moles/Vol] 4.3 mmol/L [facility] Sodium [Moles/Vol] 133 mmol/L Low [facility] Urea nitrogen [Mass/Vol] 11 mg/dL [facility] Laboratory - Hematology and Cell countson 02-07-2024 Basophils/100 WBC (Bld) 0.9 % 0.0 - 2.0 % [facility] Differential cell count method Nom (Bld) AUTO DIFF % [facility] Eosinophils (Bld) [#/Vol] 0.2 10*3/uL 0.0 - 0.7 10*3/uL [facility] Eosinophils/100 WBC (Bld) 3.8 % 0.0 - 11.0 % [facility] Erythrocyte distribution width (RBC) [Ratio] 16.0 % High 11.5 - 14.5 % [facility] Hematocrit (Bld) [Volume fraction] 31.7 % Low 36.0 - 48.0 % [facility] Hemoglobin (Bld) [Mass/Vol] 10.5 g/dL Low [facility] Lymphocytes (Bld) [#/Vol] 1.4 10*3/uL 1.2 - 3.4 10*3/uL [facility] Lymphocytes/100 WBC (Bld) 28.3 % 20.0 - 55.0 % [facility] MCH (RBC) [Entitic mass] 32.5 pg 26.0 - 35.0 PG [facility] MCHC (RBC) [Mass/Vol] 33.1 g/dL [facility] MCV (RBC) [Entitic vol] 98.4 fL [facility] Monocytes (Bld) [#/Vol] 0.6 10*3/uL 0.0 - 0.7 10*3/uL [facility] Monocytes/100 WBC (Bld) 12.4 % High 0.0 - 10.0 % [facility] Neutrophils (Bld) [#/Vol] 2.8 10*3/uL 1.4 - 6.5 10*3/uL [facility] Neutrophils/100 WBC (Bld) 54.6 % 37.0 - 75.0 % [facility] Platelet mean volume (Bld) [Entitic vol] 7.2 fL Low [facility] Platelets (Bld) [#/Vol] 366 10*3/uL 130 - 400 10*3/uL [facility] RBC (Bld) [#/Vol] 3.23 10*6/uL Low 4.0 - 5.4 10*6/uL [facility] WBC (Bld) [#/Vol] 5.1 10*3/uL 3.6 - 11.0 10*3/uL [facility] No Panel Informationon 02-06 ABSOLUTE BASOPHIL COUNT 0.0 10*3/uL 0.0 - 0.2 10*3/uL [facility] Interpretation and review of laboratory results Abnormal [facility] GFR COMMENT Average GFR for 70+ years old = 75. [facility] Interpretation and review of laboratory results Abnormal [facility] BMP FASTINGon 02-06-2024 Anion gap [Moles/Vol] 2 mmol/L Low 8-16 [facility] Calcium [Mass/Vol] 8.6 mg/dL Normal 8.4-10.2 [facility] Chloride [Moles/Vol] 104 mmol/L Normal 98-107 [facility] Comment on above: Result Comment: Shonda matthews note: Triglyceride levels of 600mg/dL or higher may positively bias chloride results by approximately 2.1 mmol CO2 [Moles/Vol] 29 mmol/L Normal 22-30 [facility] Creatinine [Mass/Vol] 0.80 mg/dL Normal 0.7-1.2 [facility] EST. GFR, 89 ml/min/1.73sq.m [facility] EST. GFR,Non 73 ml/min/1.73sq.m [facility] GFR Information Average GFR for 70+ years old = 75. [facility] Comment on above: Result Comment: [employer] aviva Kidney disease, GFR = <60. Kidney failure, GFR = <15. The GFR estimate is not adjusted for extreme body surface area or acute process, nor has it been validated for women or ethnic groups other than and . Glucose [Mass/Vol] 100 mg/dL Normal 70-100 [facility] Comment on above: Result Comment: NORMAL <100 mg/dL PREDIABETES 101-126 mg/dL DIABETES 126 mg/dL or higher Potassium [Moles/Vol] 4.4 mmol/L Normal 3.5-5.1 [facility] Sodium [Moles/Vol] 135 mmol/L Low 137-145 [facility] Urea nitrogen [Mass/Vol] 17 mg/dL Normal 7-20 [facility] C REACTIVE PROTEINon 024 CRP [Mass/Vol] 22.7 mg/L High 0-10 [facility] CBCon 02-06-2024 ABSOLUTE BAS 0.0 10*3/uL Normal 0.0-0.2 [facility] ABSOLUTE EOS 0.2 10*3/uL Normal 0.0-0.7 [facility] ABSOLUTE NEUTROPHIL COUNT 3.4 10*3/uL Normal 1.4-6.5 [facility] Basophils/100 WBC (Bld) 0.8 % Normal 0.0-2.0 [facility] DTYPE AUTO DIFF Normal [facility] Eosinophils/100 WBC (Bld) 2.8 % Normal 0.0-11.0 [facility] Lymphocytes (Bld) [#/Vol] 1.5 10*3/uL Normal 1.2-3.4 [facility] Lymphocytes/100 WBC (Bld) 25.0 % Normal 20.0-55.0 [facility] Monocytes (Bld) [#/Vol] 0.8 10*3/uL High 0.0-0.7 [facility] Monocytes/100 WBC (Bld) 12.9 % High 0.0-10.0 [facility] Neutrophils/100 WBC (Bld) 58.5 % Normal 37.0-75.0 [facility] Erythrocyte distribution width (RBC) [Ratio] 15.2 % High 11.5-14.5 [facility] Hematocrit (Bld) [Volume fraction] 29.6 % Low 36.0-48.0 [facility] Hemoglobin (Bld) [Mass/Vol] 10.1 g/dL Low 12.0-16.0 [facility] MCH (RBC) [Entitic mass] 32.5 pg Normal 26.0-35.0 [facility] MCHC (RBC) [Mass/Vol] 34.0 g/dL Normal 27.0-37.0 [facility] MCV (RBC) [Entitic vol] 95.7 fL Normal 80.0-100.0 [facility] Platelet mean volume (Bld) [Entitic vol] 6.7 fL Low 7.4-11.0 [facility] Platelets (Bld) [#/Vol] 365 10*3/uL Normal 130-400 [facility] RBC (Bld) [#/Vol] 3.10 10*6/uL Low 4.0-5.4 [facility] WBC (Bld) [#/Vol] 5.8 10*3/uL Normal 3.6-11.0 [facility] Laboratory - Chemistry and C hemistry - challengeon 02-06-2024 Anion gap [Moles/Vol] 2 mmol/L Low [facility] Calcium [Mass/Vol] 8.6 mg/dL [facility] Chloride [Moles/Vol] 104 mmol/L [facility] CO2 [Moles/Vol] 29 mmol/L [facility] Creatinine [Mass/Vol] 0.80 mg/dL [facility] CRP [Mass/Vol] 22.7 mg/L High 0 - 10 MG/L [facility] GFR/1.73 sq M.predicted among blacks MDRD (S/P/Bld) [Vol rate/Area] 89 mL/min/{1.73_m2} ml/min/1.73sq .m [facility] GFR/1.73 sq M.predicted among non-blacks MDRD (S/P/Bld) [Vol rate/Area] 73 mL/min/{1.73_m2} ml/min/1.73sq .m [facility] Glucose post fast [Mass/Vol] 100 mg/dL [facility] Potassium [Moles/Vol] 4.4 mmol/L [facility] Sodium [Moles/Vol] 135 mmol/L Low [facility] Urea nitrogen [Mass/Vol] 17 mg/dL [facility] Laboratory - Hematology and Cell countson 02-06-2024 Basophils/100 WBC (Bld) 0.8 % 0.0 - 2.0 % [facility] Differential cell count method Nom (Bld) AUTO DIFF % [facility] Eosinophils (Bld) [#/Vol] 0.2 10*3/uL 0.0 - 0.7 10*3/uL [facility] Eosinophils/100 WBC (Bld) 2.8 % 0.0 - 11.0 % [facility] Erythrocyte distribution width (RBC) [Ratio] 15.2 % High 11.5 - 14.5 % [facility] Hematocrit (Bld) [Volume fraction] 29.6 % Low 36.0 - 48.0 % [facility] Hemoglobin (Bld) [Mass/Vol] 10.1 g/dL Low [facility] Lymphocytes (Bld) [#/Vol] 1.5 10*3/uL 1.2 - 3.4 10*3/uL [facility] Lymphocytes/100 WBC (Bld) 25.0 % 20.0 - 55.0 % [facility] MCH (RBC) [Entitic mass] 32.5 pg 26.0 - 35.0 PG [facility] MCHC (RBC) [Mass/Vol] 34.0 g/dL [facility] MCV (RBC) [Entitic vol] 95.7 fL [facility] Monocytes (Bld) [#/Vol] 0.8 10*3/uL High 0.0 - 0.7 10*3/uL [facility] Monocytes/100 WBC (Bld) 12.9 % High 0.0 - 10.0 % [facility] Neutrophils (Bld) [#/Vol] 3.4 10*3/uL 1.4 - 6.5 10*3/uL [facility] Neutrophils/100 WBC (Bld) 58.5 % 37.0 - 75.0 % [facility] Platelet mean volume (Bld) [Entitic vol] 6.7 fL Low [facility] Platelets (Bld) [#/Vol] 365 10*3/uL 130 - 400 10*3/uL [facility] RBC (Bld) [#/Vol] 3.10 10*6/uL Low 4.0 - 5.4 10*6/uL [facility] WBC (Bld) [#/Vol] 5.8 10*3/uL 3.6 - 11.0 10*3/uL [facility] No Panel Informationon 02-05 GFR COMMENT Average GFR for 70+ years old = 75. [facility] Interpretation and review of laboratory results Abnormal [facility] ABSOLUTE BASOPHIL COUNT 0.0 10*3/uL 0.0 - 0.2 10*3/uL [facility] Interpretation and review of laboratory results Abnormal [facility] BMP FASTINGon 02-05-2024 Anion gap [Moles/Vol] 1 mmol/L Low 8-16 [facility] Comment on above: Performed By: #### A CBC ####Testing performed at [address] [address] Calcium [Mass/Vol] 8.8 mg/dL Normal 8.4-10.2 [facility] Comment on above: Performed By: #### A CBC ####Testing performed at [address] [address] Chloride [Moles/Vol] 104 mmol/L Normal 98-107 [facility] Comment on above: Result Comment: Shonda matthews note: Triglyceride levels of 600mg/dL or higher may positively bias chloride results by approximately 2.1 mmol Performed By: #### A CBC ####Testing performed at [address] [address] CO2 [Moles/Vol] 30 mmol/L Normal 22-30 [facility] Comment on above: Performed By: #### A CBC ####Testing performed at [address] [address] Creatinine [Mass/Vol] 0.80 mg/dL Normal 0.7-1.2 [facility] Comment on above: Performed By: #### A CBC ####Testing performed at [address] [address] EST. GFR, 89 ml/min/1.73sq.m Normal [facility] Comment on above: Performed By: #### A CBC ####Testing performed at [address] [address] EST. GFR,Non 73 ml/min/1.73sq.m [facility] Comment on above: Performed By: #### A CBC ####Testing performed at [address] [address] GFR Information Average GFR for 70+ years old = 75. Normal [facility] Comment on above: Result Comment: [employer] aviva Kidney disease, GFR = <60. Kidney failure, GFR = <15. The GFR estimate is not adjusted for extreme body surface area or acute process, nor has it been validated for women or ethnic groups other than and . Performed By: #### A CBC ####Testing performed at [address] [address] Glucose [Mass/Vol] 101 mg/dL High 70-100 [facility] Comment on above: Result Comment: NORMAL <100 mg/dL PREDIABETES 101-126 mg/dL DIABETES 126 mg/dL or higher Performed By: #### A CBC ####Testing performed at [address] [address] Potassium [Moles/Vol] 4.3 mmol/L Normal 3.5-5.1 [facility] Comment on above: Performed By: #### A CBC ####Testing performed at [address] [address] Sodium [Moles/Vol] 135 mmol/L Low 137-145 [facility] Comment on above: Performed By: #### A CBC ####Testing performed at [address] [address] Urea nitrogen [Mass/Vol] 14 mg/dL Normal 7-20 [facility] Comment on above: Performed By: #### A CBC ####Testing performed at [address] [address] C REACTIVE PROTEINon 024 CRP [Mass/Vol] 21.0 mg/L High 0-10 [facility] Comment on above: Performed By: #### A CBC ####Testing performed at [address] [address] CBCon 02-05-2024 ABSOLUTE BAS 0.0 10*3/uL Normal 0.0-0.2 [facility] Comment on above: Performed By: #### A CBC ####Testing performed at [address] [address] ABSOLUTE EOS 0.1 10*3/uL Normal 0.0-0.7 [facility] Comment on above: Performed By: #### A CBC ####Testing performed at [address] [address] ABSOLUTE NEUTROPHIL COUNT 3.1 10*3/uL Normal 1.4-6.5 [facility] Comment on above: Performed By: #### A CBC ####Testing performed at [address] [address] Basophils/100 WBC (Bld) 0.9 % Normal 0.0-2.0 [facility] Comment on above: Performed By: #### A CBC ####Testing performed at [address] [address] DTYPE AUTO DIFF Normal [facility] Comment on above: Performed By: #### A CBC ####Testing performed at [address] [address] Eosinophils/100 WBC (Bld) 2.6 % Normal 0.0-11.0 [facility] Comment on above: Performed By: #### A CBC ####Testing performed at [address] [address] Lymphocytes (Bld) [#/Vol] 1.2 10*3/uL Normal 1.2-3.4 [facility] Comment on above: Performed By: #### A CBC ####Testing performed at [address] [address] Lymphocytes/100 WBC (Bld) 23.7 % Normal 20.0-55.0 [facility] Comment on above: Performed By: #### A CBC ####Testing performed at [address] [address] Monocytes (Bld) [#/Vol] 0.6 10*3/uL Normal 0.0-0.7 [facility] Comment on above: Performed By: #### A CBC ####Testing performed at [address] [address] Monocytes/100 WBC (Bld) 11.8 % High 0.0-10.0 [facility] Comment on above: Performed By: #### A CBC ####Testing performed at [address] [address] Neutrophils/100 WBC (Bld) 61.0 % Normal 37.0-75.0 [facility] Comment on above: Performed By: #### A CBC ####Testing performed at [address] [address] Erythrocyte distribution width (RBC) [Ratio] 15.2 % High 11.5-14.5 [facility] Comment on above: Performed By: #### A CBC ####Testing performed at [address] [address] Hematocrit (Bld) [Volume fraction] 30.8 % Low 36.0-48.0 [facility] Comment on above: Performed By: #### A CBC ####Testing performed at [address] [address] Hemoglobin (Bld) [Mass/Vol] 10.4 g/dL Low 12.0-16.0 [facility] Comment on above: Performed By: #### A CBC ####Testing performed at [address] [address] MCH (RBC) [Entitic mass] 32.3 pg Normal 26.0-35.0 [facility] Comment on above: Performed By: #### A CBC ####Testing performed at [address] [address] MCHC (RBC) [Mass/Vol] 33.7 g/dL Normal 27.0-37.0 [facility] Comment on above: Performed By: #### A CBC ####Testing performed at [address] [address] MCV (RBC) [Entitic vol] 95.8 fL Normal 80.0-100.0 [facility] Comment on above: Performed By: #### A CBC ####Testing performed at [address] [address] Platelet mean volume (Bld) [Entitic vol] 6.6 fL Low 7.4-11.0 [facility] Comment on above: Performed By: #### A CBC ####Testing performed at [address] [address] Platelets (Bld) [#/Vol] 378 10*3/uL Normal 130-400 [facility] Comment on above: Performed By: #### A CBC ####Testing performed at [address] [address] RBC (Bld) [#/Vol] 3.22 10*6/uL Low 4.0-5.4 [facility] Comment on above: Performed By: #### A CBC ####Testing performed at [address] [address] WBC (Bld) [#/Vol] 5.0 10*3/uL Normal 3.6-11.0 [facility] Comment on above: Performed By: #### A CBC ####[place] [address] Laboratory - Chemistry and C hemistry - challengeon 02-05-2024 Anion gap [Moles/Vol] 1 mmol/L Low [facility] Calcium [Mass/Vol] 8.8 mg/dL [facility] Chloride [Moles/Vol] 104 mmol/L [facility] CO2 [Moles/Vol] 30 mmol/L [facility] Creatinine [Mass/Vol] 0.80 mg/dL [facility] CRP [Mass/Vol] 21.0 mg/L High 0 - 10 MG/L [facility] GFR/1.73 sq M.predicted among blacks MDRD (S/P/Bld) [Vol rate/Area] 89 mL/min/{1.73_m2} ml/min/1.73sq .m [facility] GFR/1.73 sq M.predicted among non-blacks MDRD (S/P/Bld) [Vol rate/Area] 73 mL/min/{1.73_m2} ml/min/1.73sq .m [facility] Glucose post fast [Mass/Vol] 101 mg/dL High [facility] Potassium [Moles/Vol] 4.3 mmol/L [facility] Sodium [Moles/Vol] 135 mmol/L Low [facility] Urea nitrogen [Mass/Vol] 14 mg/dL [facility] Laboratory - Hematology and Cell countson 02-05-2024 Basophils/100 WBC (Bld) 0.9 % 0.0 - 2.0 % [facility] Differential cell count method Nom (Bld) AUTO DIFF % [facility] Eosinophils (Bld) [#/Vol] 0.1 10*3/uL 0.0 - 0.7 10*3/uL [facility] Eosinophils/100 WBC (Bld) 2.6 % 0.0 - 11.0 % [facility] Erythrocyte distribution width (RBC) [Ratio] 15.2 % High 11.5 - 14.5 % [facility] Hematocrit (Bld) [Volume fraction] 30.8 % Low 36.0 - 48.0 % [facility] Hemoglobin (Bld) [Mass/Vol] 10.4 g/dL Low [facility] Lymphocytes (Bld) [#/Vol] 1.2 10*3/uL 1.2 - 3.4 10*3/uL [facility] Lymphocytes/100 WBC (Bld) 23.7 % 20.0 - 55.0 % [facility] MCH (RBC) [Entitic mass] 32.3 pg 26.0 - 35.0 PG [facility] MCHC (RBC) [Mass/Vol] 33.7 g/dL [facility] MCV (RBC) [Entitic vol] 95.8 fL [facility] Monocytes (Bld) [#/Vol] 0.6 10*3/uL 0.0 - 0.7 10*3/uL [facility] Monocytes/100 WBC (Bld) 11.8 % High 0.0 - 10.0 % [facility] Neutrophils (Bld) [#/Vol] 3.1 10*3/uL 1.4 - 6.5 10*3/uL [facility] Neutrophils/100 WBC (Bld) 61.0 % 37.0 - 75.0 % [facility] Platelet mean volume (Bld) [Entitic vol] 6.6 fL Low [facility] Platelets (Bld) [#/Vol] 378 10*3/uL 130 - 400 10*3/uL [facility] RBC (Bld) [#/Vol] 3.22 10*6/uL Low 4.0 - 5.4 10*6/uL [facility] WBC (Bld) [#/Vol] 5.0 10*3/uL 3.6 - 11.0 10*3/uL [facility] No Panel Informationon 02-04 GFR COMMENT Average GFR for 70+ years old = 75. [facility] Interpretation and review of laboratory results Abnormal [facility] ABSOLUTE BASOPHIL COUNT 0.0 10*3/uL 0.0 - 0.2 10*3/uL [facility] Interpretation and review of laboratory results Abnormal [facility] BMP FASTINGon 02-04-2024 Anion gap [Moles/Vol] 1 mmol/L Low 8-16 [facility] Calcium [Mass/Vol] 8.8 mg/dL Normal 8.4-10.2 [facility] Chloride [Moles/Vol] 104 mmol/L Normal 98-107 [facility] Comment on above: Result Comment: Shonda matthews note: Triglyceride levels of 600mg/dL or higher may positively bias chloride results by approximately 2.1 mmol CO2 [Moles/Vol] 31 mmol/L High 22-30 [facility] Creatinine [Mass/Vol] 0.80 mg/dL Normal 0.7-1.2 [facility] EST. GFR, 89 ml/min/1.73sq.m Normal [facility] EST. GFR,Non 73 ml/min/1.73sq.m Normal [facility] GFR Information Average GFR for 70+ years old = 75. Normal [facility] Comment on above: Result Comment: [employer] Supervisor aviva Kidney disease, GFR = <60. Kidney failure, GFR = <15. The GFR estimate is not adjusted for extreme body surface area or acute process, nor has it been validated for women or ethnic groups other than and . Glucose [Mass/Vol] 96 mg/dL Normal 70-100 [facility] Comment on above: Result Comment: NORMAL <100 mg/dL PREDIABETES 101-126 mg/dL DIABETES 126 mg/dL or higher Potassium [Moles/Vol] 4.4 mmol/L Normal 3.5-5.1 [facility] Sodium [Moles/Vol] 136 mmol/L Low 137-145 [facility] Urea nitrogen [Mass/Vol] 18 mg/dL Normal 7-20 [facility] C REACTIVE PROTEINon 024 CRP [Mass/Vol] 21.4 mg/L High 0-10 [facility] CBCon 02-04-2024 ABSOLUTE BAS 0.0 10*3/uL Normal 0.0-0.2 [facility] ABSOLUTE EOS 0.2 10*3/uL Normal 0.0-0.7 [facility] ABSOLUTE NEUTROPHIL COUNT 3.5 10*3/uL Normal 1.4-6.5 [facility] Basophils/100 WBC (Bld) 0.7 % Normal 0.0-2.0 [facility] DTYPE AUTO DIFF Normal [facility] Eosinophils/100 WBC (Bld) 3.2 % Normal 0.0-11.0 [facility] Lymphocytes (Bld) [#/Vol] 1.5 10*3/uL Normal 1.2-3.4 [facility] Lymphocytes/100 WBC (Bld) 24.7 % Normal 20.0-55.0 [facility] Monocytes (Bld) [#/Vol] 0.8 10*3/uL High 0.0-0.7 [facility] Monocytes/100 WBC (Bld) 12.5 % High 0.0-10.0 [facility] Neutrophils/100 WBC (Bld) 58.9 % Normal 37.0-75.0 [facility] Erythrocyte distribution width (RBC) [Ratio] 15.5 % High 11.5-14.5 [facility] Hematocrit (Bld) [Volume fraction] 30.0 % Low 36.0-48.0 [facility] Hemoglobin (Bld) [Mass/Vol] 10.2 g/dL Low 12.0-16.0 [facility] MCH (RBC) [Entitic mass] 32.4 pg Normal 26.0-35.0 [facility] MCHC (RBC) [Mass/Vol] 33.8 g/dL Normal 27.0-37.0 [facility] MCV (RBC) [Entitic vol] 95.7 fL Normal 80.0-100.0 [facility] Platelet mean volume (Bld) [Entitic vol] 6.8 fL Low 7.4-11.0 [facility] Platelets (Bld) [#/Vol] 415 10*3/uL High 130-400 [facility] RBC (Bld) [#/Vol] 3.14 10*6/uL Low 4.0-5.4 [facility] WBC (Bld) [#/Vol] 6.0 10*3/uL Normal 3.6-11.0 [facility] Laboratory - Chemistry and C hemistry - challengeon 02-04-2024 Anion gap [Moles/Vol] 1 mmol/L Low [facility] Calcium [Mass/Vol] 8.8 mg/dL [facility] Chloride [Moles/Vol] 104 mmol/L [facility] CO2 [Moles/Vol] 31 mmol/L High [facility] Creatinine [Mass/Vol] 0.80 mg/dL [facility] CRP [Mass/Vol] 21.4 mg/L High 0 - 10 MG/L [facility] GFR/1.73 sq M.predicted among blacks MDRD (S/P/Bld) [Vol rate/Area] 89 mL/min/{1.73_m2} ml/min/1.73sq .m [facility] GFR/1.73 sq M.predicted among non-blacks MDRD (S/P/Bld) [Vol rate/Area] 73 mL/min/{1.73_m2} ml/min/1.73sq .m [facility] Glucose post fast [Mass/Vol] 96 mg/dL [facility] Potassium [Moles/Vol] 4.4 mmol/L [facility] Sodium [Moles/Vol] 136 mmol/L Low [facility] Urea nitrogen [Mass/Vol] 18 mg/dL [facility] Laboratory - Hematology and Cell countson 02-04-2024 Basophils/100 WBC (Bld) 0.7 % 0.0 - 2.0 % [facility] Differential cell count method Nom (Bld) AUTO DIFF % [facility] Eosinophils (Bld) [#/Vol] 0.2 10*3/uL 0.0 - 0.7 10*3/uL [facility] Eosinophils/100 WBC (Bld) 3.2 % 0.0 - 11.0 % [facility] Erythrocyte distribution width (RBC) [Ratio] 15.5 % High 11.5 - 14.5 % [facility] Hematocrit (Bld) [Volume fraction] 30.0 % Low 36.0 - 48.0 % [facility] Hemoglobin (Bld) [Mass/Vol] 10.2 g/dL Low [facility] Lymphocytes (Bld) [#/Vol] 1.5 10*3/uL 1.2 - 3.4 10*3/uL [facility] Lymphocytes/100 WBC (Bld) 24.7 % 20.0 - 55.0 % [facility] MCH (RBC) [Entitic mass] 32.4 pg 26.0 - 35.0 PG [facility] MCHC (RBC) [Mass/Vol] 33.8 g/dL [facility] MCV (RBC) [Entitic vol] 95.7 fL [facility] Monocytes (Bld) [#/Vol] 0.8 10*3/uL High 0.0 - 0.7 10*3/uL [facility] Monocytes/100 WBC (Bld) 12.5 % High 0.0 - 10.0 % [facility] Neutrophils (Bld) [#/Vol] 3.5 10*3/uL 1.4 - 6.5 10*3/uL [facility] Neutrophils/100 WBC (Bld) 58.9 % 37.0 - 75.0 % [facility] Platelet mean volume (Bld) [Entitic vol] 6.8 fL Low [facility] Platelets (Bld) [#/Vol] 415 10*3/uL High 130 - 400 10*3/uL [facility] RBC (Bld) [#/Vol] 3.14 10*6/uL Low 4.0 - 5.4 10*6/uL [facility] WBC (Bld) [#/Vol] 6.0 10*3/uL 3.6 - 11.0 10*3/uL [facility] No Panel Informationon 02-03 ABSOLUTE BASOPHIL COUNT 0.0 10*3/uL 0.0 - 0.2 10*3/uL [facility] Interpretation and review of laboratory results Abnormal [facility] GFR COMMENT Average GFR for 70+ years old = 75. [facility] Interpretation and review of laboratory results Abnormal [facility] BMP FASTINGon 02-03-2024 Anion gap [Moles/Vol] 2 mmol/L Low 8-16 [facility] Calcium [Mass/Vol] 9.1 mg/dL Normal 8.4-10.2 [facility] Chloride [Moles/Vol] 104 mmol/L Normal 98-107 [facility] Comment on above: Result Comment: Shonda matthews note: Triglyceride levels of 600mg/dL or higher may positively bias chloride results by approximately 2.1 mmol CO2 [Moles/Vol] 29 mmol/L Normal 22-30 [facility] Creatinine [Mass/Vol] 0.90 mg/dL Normal 0.7-1.2 [facility] EST. GFR, 77 ml/min/1.73sq.m Normal [facility] EST. GFR,Non 64 ml/min/1.73sq.m Normal [facility] GFR Information Average GFR for 70+ years old = 75. Normal [facility] Comment on above: Result Comment: [employer] Supervisor aviva Kidney disease, GFR = <60. Kidney failure, GFR = <15. The GFR estimate is not adjusted for extreme body surface area or acute process, nor has it been validated for women or ethnic groups other than and . Glucose [Mass/Vol] 100 mg/dL Normal 70-100 [facility] Comment on above: Result Comment: NORMAL <100 mg/dL PREDIABETES 101-126 mg/dL DIABETES 126 mg/dL or higher Potassium [Moles/Vol] 4.4 mmol/L Normal 3.5-5.1 [facility] Sodium [Moles/Vol] 135 mmol/L Low 137-145 [facility] Urea nitrogen [Mass/Vol] 17 mg/dL Normal 7-20 [facility] C REACTIVE PROTEINon 024 CRP [Mass/Vol] 21.9 mg/L High 0-10 [facility] CBCon 02-03-2024 ABSOLUTE BAS 0.1 10*3/uL Normal 0.0-0.2 [facility] ABSOLUTE EOS 0.2 10*3/uL Normal 0.0-0.7 [facility] ABSOLUTE NEUTROPHIL COUNT 3.6 10*3/uL Normal 1.4-6.5 [facility] Basophils/100 WBC (Bld) 1.2 % Normal 0.0-2.0 [facility] DTYPE AUTO DIFF Normal [facility] Eosinophils/100 WBC (Bld) 3.4 % Normal 0.0-11.0 [facility] Lymphocytes (Bld) [#/Vol] 1.6 10*3/uL Normal 1.2-3.4 [facility] Lymphocytes/100 WBC (Bld) 26.1 % Normal 20.0-55.0 [facility] Monocytes (Bld) [#/Vol] 0.7 10*3/uL Normal 0.0-0.7 [facility] Monocytes/100 WBC (Bld) 11.8 % High 0.0-10.0 [facility] Neutrophils/100 WBC (Bld) 57.5 % Normal 37.0-75.0 [facility] Erythrocyte distribution width (RBC) [Ratio] 15.0 % High 11.5-14.5 [facility] Hematocrit (Bld) [Volume fraction] 31.8 % Low 36.0-48.0 [facility] Hemoglobin (Bld) [Mass/Vol] 10.7 g/dL Low 12.0-16.0 [facility] MCH (RBC) [Entitic mass] 32.3 pg Normal 26.0-35.0 [facility] MCHC (RBC) [Mass/Vol] 33.7 g/dL Normal 27.0-37.0 [facility] MCV (RBC) [Entitic vol] 95.8 fL Normal 80.0-100.0 [facility] Platelet mean volume (Bld) [Entitic vol] 6.4 fL Low 7.4-11.0 [facility] Platelets (Bld) [#/Vol] 472 10*3/uL High 130-400 [facility] RBC (Bld) [#/Vol] 3.31 10*6/uL Low 4.0-5.4 [facility] WBC (Bld) [#/Vol] 6.3 10*3/uL Normal 3.6-11.0 [facility] Laboratory - Chemistry and C hemistry - challengeon 02-03-2024 Bilirubin Ql (U) Negative NEGATIVE [facility] pH (U) 7.0 [pH] 5.0 - 7.0 [facility] Specific gravity (U) [Rel density] 1.015 1.010 - 1.025 [facility] Urobilinogen (U) [Mass/Vol] 0.2 mg/dL [facility] Anion gap [Moles/Vol] 2 mmol/L Low [facility] Calcium [Mass/Vol] 9.1 mg/dL [facility] Chloride [Moles/Vol] 104 mmol/L [facility] CO2 [Moles/Vol] 29 mmol/L [facility] Creatinine [Mass/Vol] 0.90 mg/dL [facility] CRP [Mass/Vol] 21.9 mg/L High 0 - 10 MG/L [facility] GFR/1.73 sq M.predicted among blacks MDRD (S/P/Bld) [Vol rate/Area] 77 mL/min/{1.73_m2} ml/min/1.73sq .m [facility] GFR/1.73 sq M.predicted among non-blacks MDRD (S/P/Bld) [Vol rate/Area] 64 mL/min/{1.73_m2} ml/min/1.73sq .m [facility] Glucose post fast [Mass/Vol] 100 mg/dL [facility] Potassium [Moles/Vol] 4.4 mmol/L [facility] Sodium [Moles/Vol] 135 mmol/L Low [facility] Urea nitrogen [Mass/Vol] 17 mg/dL [facility] Laboratory - Hematology and Cell countson 02-03-2024 Hemoglobin Ql (U) Negative NEGATIVE [facility] Basophils/100 WBC (Bld) 1.2 % 0.0 - 2.0 % [facility] Differential cell count method Nom (Bld) AUTO DIFF % [facility] Eosinophils (Bld) [#/Vol] 0.2 10*3/uL 0.0 - 0.7 10*3/uL [facility] Eosinophils/100 WBC (Bld) 3.4 % 0.0 - 11.0 % [facility] Erythrocyte distribution width (RBC) [Ratio] 15.0 % High 11.5 - 14.5 % [facility] Hematocrit (Bld) [Volume fraction] 31.8 % Low 36.0 - 48.0 % [facility] Hemoglobin (Bld) [Mass/Vol] 10.7 g/dL Low [facility] Lymphocytes (Bld) [#/Vol] 1.6 10*3/uL 1.2 - 3.4 10*3/uL [facility] Lymphocytes/100 WBC (Bld) 26.1 % 20.0 - 55.0 % [facility] MCH (RBC) [Entitic mass] 32.3 pg 26.0 - 35.0 PG [facility] MCHC (RBC) [Mass/Vol] 33.7 g/dL [facility] MCV (RBC) [Entitic vol] 95.8 fL [facility] Monocytes (Bld) [#/Vol] 0.7 10*3/uL 0.0 - 0.7 10*3/uL [facility] Monocytes/100 WBC (Bld) 11.8 % High 0.0 - 10.0 % [facility] Neutrophils (Bld) [#/Vol] 3.6 10*3/uL 1.4 - 6.5 10*3/uL [facility] Neutrophils/100 WBC (Bld) 57.5 % 37.0 - 75.0 % [facility] Platelet mean volume (Bld) [Entitic vol] 6.4 fL Low [facility] Platelets (Bld) [#/Vol] 472 10*3/uL High 130 - 400 10*3/uL [facility] RBC (Bld) [#/Vol] 3.31 10*6/uL Low 4.0 - 5.4 10*6/uL [facility] WBC (Bld) [#/Vol] 6.3 10*3/uL 3.6 - 11.0 10*3/uL [facility] Laboratory - Specimen inform ationon 02-03-2024 Clarity (U) CLEAR CLEAR [facility] Color (U) YELLOW YELLOW [facility] Laboratory - Urinalysison Glucose Test strip (U) [Mass/Vol] Negative NEGATIVE mg/dl [facility] Ketones (U) [Mass/Vol] Negative NEGATIVE mg/dl [facility] Leukocyte esterase Test strip Ql (U) Negative NEGATIVE [facility] Nitrite Ql (U) Negative NEGATIVE [facility] Protein Ql (U) Negative NEGATIVE mg/dl [facility] No Panel Informationon 02-02 [facility] GFR COMMENT Average GFR for 70+ years old = 75. [facility] Interpretation and review of laboratory results Abnormal [facility] ABSOLUTE BASOPHIL COUNT 0.1 10*3/uL 0.0 - 0.2 10*3/uL [facility] Interpretation and review of laboratory results Abnormal [facility] URINE MACROSCOPICon 02-03-20 24 Bilirubin Ql (U) Negative Normal NEGATIVE [facility] Clarity (U) CLEAR Normal CLEAR [facility] Color (U) YELLOW Normal YELLOW [facility] Glucose Ql (U) Negative Normal NEGATIVE [facility] pH (U) 7.0 [pH] Normal 5.0-7.0 [facility] URINE HEMOGLOBIN Negative Normal NEGATIVE [facility] URINE KETONE Negative Normal NEGATIVE [facility] URINE LEUKOTEST Negative Normal NEGATIVE [facility] URINE NITRATES Negative Normal NEGATIVE [facility] URINE SPEC GRAVITY 1.015 Normal 1.010-1.025 [facility] URINE TOTAL PROTEIN Negative Normal NEGATIVE [facility] Urobilinogen Qn (U) 0.2 {Monique'U}/dL Normal 0.2-1.0 [facility] BMP FASTINGon 02-02-2024 Anion gap [Moles/Vol] 1 mmol/L Low 8-16 [facility] Comment on above: Performed By: #### A CBC #### Testing performed at [place] [id number] Calcium [Mass/Vol] 8.9 mg/dL Normal 8.4-10.2 [facility] Comment on above: Performed By: #### A CBC #### Testing performed at [address] [address] Chloride [Moles/Vol] 103 mmol/L Normal 98-107 [facility] Comment on above: Result Comment: Shonda matthews note: Triglyceride levels of 600mg/dL or higher may positively bias chloride results by approximately 2.1 mmol Performed By: #### A CBC #### Testing performed at [address] [address] CO2 [Moles/Vol] 30 mmol/L Normal 22-30 [facility] Comment on above: Performed By: #### A CBC #### Testing performed at [address] [address] Creatinine [Mass/Vol] 0.90 mg/dL Normal 0.7-1.2 [facility] Comment on above: Performed By: #### A CBC #### Testing performed at [address] [address] EST. GFR, 77 ml/min/1.73sq.m [facility] Comment on above: Performed By: #### A CBC #### Testing performed at [address] [address] EST. GFR,Non 64 ml/min/1.73sq.m [facility] Comment on above: Performed By: #### A CBC #### Testing performed at [address] [address] GFR Information Average GFR for 70+ years old = 75. Normal [facility] Comment on above: Result Comment: [employer] Supervisor aviva Kidney disease, GFR = <60. Kidney failure, GFR = <15. The GFR estimate is not adjusted for extreme body surface area or acute process, nor has it been validated for women or ethnic groups other than and . Performed By: #### A CBC #### Testing performed at [address] [address] Glucose [Mass/Vol] 103 mg/dL High 70-100 [facility] Comment on above: Result Comment: NORMAL <100 mg/dL PREDIABETES 101-126 mg/dL DIABETES 126 mg/dL or higher Performed By: #### A CBC #### Testing performed at [address] [address] Potassium [Moles/Vol] 4.2 mmol/L Normal 3.5-5.1 [facility] Comment on above: Performed By: #### A CBC #### Testing performed at [address] [address] Sodium [Moles/Vol] 134 mmol/L Low 137-145 [facility] Comment on above: Performed By: #### A CBC #### Testing performed at [address] [address] Urea nitrogen [Mass/Vol] 18 mg/dL Normal 7-20 [facility] Comment on above: Performed By: #### A CBC #### Testing performed at [address] [address] C REACTIVE PROTEINon 024 CRP [Mass/Vol] 26.3 mg/L High 0-10 [facility] Comment on above: Performed By: #### A CBC #### Testing performed at [address] [address] CBCon 02-02-2024 ABSOLUTE BAS 0.1 10*3/uL Normal 0.0-0.2 [facility] Comment on above: Performed By: #### A CBC #### Testing performed at [address] [address] ABSOLUTE EOS 0.2 10*3/uL Normal 0.0-0.7 [facility] Comment on above: Performed By: #### A CBC #### Testing performed at [address] [address] ABSOLUTE NEUTROPHIL COUNT 3.4 10*3/uL Normal 1.4-6.5 [facility] Comment on above: Performed By: #### A CBC #### Testing performed at [address] [address] Basophils/100 WBC (Bld) 0.9 % Normal 0.0-2.0 [facility] Comment on above: Performed By: #### A CBC #### Testing performed at [address] [address] DTYPE AUTO DIFF Normal [facility] Comment on above: Performed By: #### A CBC #### Testing performed at [place] [address] [place] [address] Eosinophils/100 WBC (Bld) 3.7 % Normal 0.0-11.0 [facility] Comment on above: Performed By: #### A CBC #### Testing performed at [place] [address] [place] [address] Lymphocytes (Bld) [#/Vol] 1.6 10*3/uL Normal 1.2-3.4 [facility] Comment on above: Performed By: #### A CBC #### Testing performed at [address] [address] Lymphocytes/100 WBC (Bld) 26.5 % Normal 20.0-55.0 [facility] Comment on above: Performed By: #### A CBC #### Testing performed at [address] [address] Monocytes (Bld) [#/Vol] 0.8 10*3/uL High 0.0-0.7 [facility] Comment on above: Performed By: #### A CBC #### Testing performed at [address] [address] Monocytes/100 WBC (Bld) 12.8 % High 0.0-10.0 [facility] Comment on above: Performed By: #### A CBC #### Testing performed at [address] [address] Neutrophils/100 WBC (Bld) 56.1 % Normal 37.0-75.0 [facility] Comment on above: Performed By: #### A CBC #### Testing performed at [address] [address] Erythrocyte distribution width (RBC) [Ratio] 15.2 % High 11.5-14.5 [facility] Comment on above: Performed By: #### A CBC #### Testing performed at [address] [address] Hematocrit (Bld) [Volume fraction] 31.1 % Low 36.0-48.0 [facility] Comment on above: Performed By: #### A CBC #### Testing performed at [address] [address] Hemoglobin (Bld) [Mass/Vol] 10.5 g/dL Low 12.0-16.0 [facility] Comment on above: Performed By: #### A CBC #### Testing performed at [address] [address] MCH (RBC) [Entitic mass] 32.4 pg Normal 26.0-35.0 [facility] Comment on above: Performed By: #### A CBC #### Testing performed at [address] [address] MCHC (RBC) [Mass/Vol] 33.8 g/dL Normal 27.0-37.0 [facility] Comment on above: Performed By: #### A CBC #### Testing performed at [address] [address] MCV (RBC) [Entitic vol] 95.9 fL Normal 80.0-100.0 [facility] Comment on above: Performed By: #### A CBC #### Testing performed at [address] [address] Platelet mean volume (Bld) [Entitic vol] 6.5 fL Low 7.4-11.0 [facility] Comment on above: Performed By: #### A CBC #### Testing performed at [address] [address] Platelets (Bld) [#/Vol] 429 10*3/uL High 130-400 [facility] Comment on above: Performed By: #### A CBC #### Testing performed at [address] [address] RBC (Bld) [#/Vol] 3.24 10*6/uL Low 4.0-5.4 [facility] Comment on above: Performed By: #### A CBC #### Testing performed at [facility] [address] [place] [address] WBC (Bld) [#/Vol] 6.0 10*3/uL Normal 3.6-11.0 [facility] Comment on above: Performed By: #### A CBC #### Testing performed at [facility] [address] [place] [address] Laboratory - Chemistry and C hemistry - challengeon 02-02-2024 Anion gap [Moles/Vol] 1 mmol/L Low [facility] Calcium [Mass/Vol] 8.9 mg/dL [facility] Chloride [Moles/Vol] 103 mmol/L [facility] CO2 [Moles/Vol] 30 mmol/L [facility] Creatinine [Mass/Vol] 0.90 mg/dL [facility] CRP [Mass/Vol] 26.3 mg/L High 0 - 10 MG/L [facility] GFR/1.73 sq M.predicted among blacks MDRD (S/P/Bld) [Vol rate/Area] 77 mL/min/{1.73_m2} ml/min/1.73sq .m [facility] GFR/1.73 sq M.predicted among non-blacks MDRD (S/P/Bld) [Vol rate/Area] 64 mL/min/{1.73_m2} ml/min/1.73sq .m [facility] Glucose post fast [Mass/Vol] 103 mg/dL High [facility] Potassium [Moles/Vol] 4.2 mmol/L [facility] Sodium [Moles/Vol] 134 mmol/L Low [facility] Urea nitrogen [Mass/Vol] 18 mg/dL [facility] Laboratory - Hematology and Cell countson 02-02-2024 Basophils/100 WBC (Bld) 0.9 % 0.0 - 2.0 % [facility] Differential cell count method Nom (Bld) AUTO DIFF % [facility] Eosinophils (Bld) [#/Vol] 0.2 10*3/uL 0.0 - 0.7 10*3/uL [facility] Eosinophils/100 WBC (Bld) 3.7 % 0.0 - 11.0 % [facility] Erythrocyte distribution width (RBC) [Ratio] 15.2 % High 11.5 - 14.5 % [facility] Hematocrit (Bld) [Volume fraction] 31.1 % Low 36.0 - 48.0 % [facility] Hemoglobin (Bld) [Mass/Vol] 10.5 g/dL Low [facility] Lymphocytes (Bld) [#/Vol] 1.6 10*3/uL 1.2 - 3.4 10*3/uL [facility] Lymphocytes/100 WBC (Bld) 26.5 % 20.0 - 55.0 % [facility] MCH (RBC) [Entitic mass] 32.4 pg 26.0 - 35.0 PG [facility] MCHC (RBC) [Mass/Vol] 33.8 g/dL [facility] MCV (RBC) [Entitic vol] 95.9 fL [facility] Monocytes (Bld) [#/Vol] 0.8 10*3/uL High 0.0 - 0.7 10*3/uL [facility] Monocytes/100 WBC (Bld) 12.8 % High 0.0 - 10.0 % [facility] Neutrophils (Bld) [#/Vol] 3.4 10*3/uL 1.4 - 6.5 10*3/uL [facility] Neutrophils/100 WBC (Bld) 56.1 % 37.0 - 75.0 % [facility] Platelet mean volume (Bld) [Entitic vol] 6.5 fL Low [facility] Platelets (Bld) [#/Vol] 429 10*3/uL High 130 - 400 10*3/uL [facility] RBC (Bld) [#/Vol] 3.24 10*6/uL Low 4.0 - 5.4 10*6/uL [facility] WBC (Bld) [#/Vol] 6.0 10*3/uL 3.6 - 11.0 10*3/uL [facility] No Panel Informationon 02-01 GFR COMMENT Average GFR for 70+ years old = 75. [facility] Interpretation and review of laboratory results Abnormal [facility] ABSOLUTE BASOPHIL COUNT 0.1 10*3/uL 0.0 - 0.2 10*3/uL [facility] Interpretation and review of laboratory results Abnormal [facility] BMP FASTINGon 02-01-2024 Anion gap [Moles/Vol] 2 mmol/L Low 8-16 [facility] Calcium [Mass/Vol] 8.9 mg/dL Normal 8.4-10.2 [facility] Chloride [Moles/Vol] 103 mmol/L Normal 98-107 [facility] Comment on above: Result Comment: Shonda matthews note: Triglyceride levels of 600mg/dL or higher may positively bias chloride results by approximately 2.1 mmol CO2 [Moles/Vol] 28 mmol/L Normal 22-30 [facility] Creatinine [Mass/Vol] 0.90 mg/dL Normal 0.7-1.2 [facility] EST. GFR, 77 ml/min/1.73sq.m Normal [facility] EST. GFR,Non 64 ml/min/1.73sq.m [facility] GFR Information Average GFR for 70+ years old = 75. Normal [facility] Comment on above: Result Comment: [employer] Supervisor aviva Kidney disease, GFR = <60. Kidney failure, GFR = <15. The GFR estimate is not adjusted for extreme body surface area or acute process, nor has it been validated for women or ethnic groups other than and . Glucose [Mass/Vol] 98 mg/dL Normal 70-100 [facility] Comment on above: Result Comment: NORMAL <100 mg/dL PREDIABETES 101-126 mg/dL DIABETES 126 mg/dL or higher Potassium [Moles/Vol] 4.4 mmol/L Normal 3.5-5.1 [facility] Sodium [Moles/Vol] 133 mmol/L Low 137-145 [facility] Urea nitrogen [Mass/Vol] 14 mg/dL Normal 7-20 [facility] C REACTIVE PROTEINon 024 CRP [Mass/Vol] 26.1 mg/L High 0-10 [facility] CBCon 02-01-2024 ABSOLUTE BAS 0.1 10*3/uL Normal 0.0-0.2 [facility] ABSOLUTE EOS 0.1 10*3/uL Normal 0.0-0.7 [facility] ABSOLUTE NEUTROPHIL COUNT 3.0 10*3/uL Normal 1.4-6.5 [facility] Basophils/100 WBC (Bld) 1.1 % Normal 0.0-2.0 [facility] DTYPE AUTO DIFF Normal [facility] Eosinophils/100 WBC (Bld) 2.6 % Normal 0.0-11.0 [facility] Lymphocytes (Bld) [#/Vol] 1.7 10*3/uL Normal 1.2-3.4 [facility] Lymphocytes/100 WBC (Bld) 28.9 % Normal 20.0-55.0 [facility] Monocytes (Bld) [#/Vol] 0.9 10*3/uL High 0.0-0.7 [facility] Monocytes/100 WBC (Bld) 15.1 % High 0.0-10.0 [facility] Neutrophils/100 WBC (Bld) 52.3 % Normal 37.0-75.0 [facility] Erythrocyte distribution width (RBC) [Ratio] 14.8 % High 11.5-14.5 [facility] Hematocrit (Bld) [Volume fraction] 31.4 % Low 36.0-48.0 [facility] Hemoglobin (Bld) [Mass/Vol] 10.6 g/dL Low 12.0-16.0 [facility] MCH (RBC) [Entitic mass] 32.4 pg Normal 26.0-35.0 [facility] MCHC (RBC) [Mass/Vol] 33.9 g/dL Normal 27.0-37.0 [facility] MCV (RBC) [Entitic vol] 95.5 fL Normal 80.0-100.0 [facility] Platelet mean volume (Bld) [Entitic vol] 6.4 fL Low 7.4-11.0 [facility] Platelets (Bld) [#/Vol] 479 10*3/uL High 130-400 [facility] RBC (Bld) [#/Vol] 3.29 10*6/uL Low 4.0-5.4 [facility] WBC (Bld) [#/Vol] 5.8 10*3/uL Normal 3.6-11.0 [facility] Laboratory - Chemistry and C hemistry - challengeon 02-01-2024 Anion gap [Moles/Vol] 2 mmol/L Low [facility] Calcium [Mass/Vol] 8.9 mg/dL [facility] Chloride [Moles/Vol] 103 mmol/L [facility] CO2 [Moles/Vol] 28 mmol/L [facility] Creatinine [Mass/Vol] 0.90 mg/dL [facility] CRP [Mass/Vol] 26.1 mg/L High 0 - 10 MG/L [facility] GFR/1.73 sq M.predicted among blacks MDRD (S/P/Bld) [Vol rate/Area] 77 mL/min/{1.73_m2} ml/min/1.73sq .m [facility] GFR/1.73 sq M.predicted among non-blacks MDRD (S/P/Bld) [Vol rate/Area] 64 mL/min/{1.73_m2} ml/min/1.73sq .m [facility] Glucose post fast [Mass/Vol] 98 mg/dL [facility] Potassium [Moles/Vol] 4.4 mmol/L [facility] Sodium [Moles/Vol] 133 mmol/L Low [facility] Urea nitrogen [Mass/Vol] 14 mg/dL [facility] Laboratory - Hematology and Cell countson 02-01-2024 Basophils/100 WBC (Bld) 1.1 % 0.0 - 2.0 % [facility] Differential cell count method Nom (Bld) AUTO DIFF % [facility] Eosinophils (Bld) [#/Vol] 0.1 10*3/uL 0.0 - 0.7 10*3/uL [facility] Eosinophils/100 WBC (Bld) 2.6 % 0.0 - 11.0 % [facility] Erythrocyte distribution width (RBC) [Ratio] 14.8 % High 11.5 - 14.5 % [facility] Hematocrit (Bld) [Volume fraction] 31.4 % Low 36.0 - 48.0 % [facility] Hemoglobin (Bld) [Mass/Vol] 10.6 g/dL Low [facility] Lymphocytes (Bld) [#/Vol] 1.7 10*3/uL 1.2 - 3.4 10*3/uL [facility] Lymphocytes/100 WBC (Bld) 28.9 % 20.0 - 55.0 % [facility] MCH (RBC) [Entitic mass] 32.4 pg 26.0 - 35.0 PG [facility] MCHC (RBC) [Mass/Vol] 33.9 g/dL [facility] MCV (RBC) [Entitic vol] 95.5 fL [facility] Monocytes (Bld) [#/Vol] 0.9 10*3/uL High 0.0 - 0.7 10*3/uL [facility] Monocytes/100 WBC (Bld) 15.1 % High 0.0 - 10.0 % [facility] Neutrophils (Bld) [#/Vol] 3.0 10*3/uL 1.4 - 6.5 10*3/uL [facility] Neutrophils/100 WBC (Bld) 52.3 % 37.0 - 75.0 % [facility] Platelet mean volume (Bld) [Entitic vol] 6.4 fL Low [facility] Platelets (Bld) [#/Vol] 479 10*3/uL High 130 - 400 10*3/uL [facility] RBC (Bld) [#/Vol] 3.29 10*6/uL Low 4.0 - 5.4 10*6/uL [facility] WBC (Bld) [#/Vol] 5.8 10*3/uL 3.6 - 11.0 10*3/uL [facility] No Panel Informationon 01-31 GFR COMMENT Average GFR for 70+ years old = 75. [facility] Interpretation and review of laboratory results Abnormal [facility] ABSOLUTE BASOPHIL COUNT 0.1 10*3/uL 0.0 - 0.2 10*3/uL [facility] Interpretation and review of laboratory results Abnormal [facility] BMP FASTINGon 01-31-2024 Anion gap [Moles/Vol] Negative Normal 8-16 [facility] Calcium [Mass/Vol] 8.7 mg/dL Normal 8.4-10.2 [facility] Chloride [Moles/Vol] 102 mmol/L Normal 98-107 [facility] Comment on above: Result Comment: Shonda matthews note: Triglyceride levels of 600mg/dL or higher may positively bias chloride results by approximately 2.1 mmol CO2 [Moles/Vol] 33 mmol/L High 22-30 [facility] Creatinine [Mass/Vol] 1.10 mg/dL Normal 0.7-1.2 [facility] EST. GFR, 61 ml/min/1.73sq.m Normal [facility] EST. GFR,Non 51 ml/min/1.73sq.m Normal [facility] GFR Information Average GFR for 70+ years old = 75. Normal [facility] Comment on above: Result Comment: [employer]visor aviva Kidney disease, GFR = <60. Kidney failure, GFR = <15. The GFR estimate is not adjusted for extreme body surface area or acute process, nor has it been validated for women or ethnic groups other than and . Glucose [Mass/Vol] 94 mg/dL Normal 70-100 [facility] Comment on above: Result Comment: NORMAL <100 mg/dL PREDIABETES 101-126 mg/dL DIABETES 126 mg/dL or higher Potassium [Moles/Vol] 4.5 mmol/L Normal 3.5-5.1 [facility] Sodium [Moles/Vol] 134 mmol/L Low 137-145 [facility] Urea nitrogen [Mass/Vol] 12 mg/dL Normal 7-20 [facility] C REACTIVE PROTEINon 024 CRP [Mass/Vol] 27.5 mg/L High 0-10 [facility] CBCon 01-31-2024 ABSOLUTE BAS 0.1 10*3/uL Normal 0.0-0.2 [facility] ABSOLUTE EOS 0.2 10*3/uL Normal 0.0-0.7 [facility] ABSOLUTE NEUTROPHIL COUNT 2.5 10*3/uL Normal 1.4-6.5 [facility] Basophils/100 WBC (Bld) 1.4 % Normal 0.0-2.0 [facility] DTYPE AUTO DIFF Normal [facility] Eosinophils/100 WBC (Bld) 3.6 % Normal 0.0-11.0 [facility] Lymphocytes (Bld) [#/Vol] 1.5 10*3/uL Normal 1.2-3.4 [facility] Lymphocytes/100 WBC (Bld) 28.8 % Normal 20.0-55.0 [facility] Monocytes (Bld) [#/Vol] 0.8 10*3/uL High 0.0-0.7 [facility] Monocytes/100 WBC (Bld) 16.5 % High 0.0-10.0 [facility] Neutrophils/100 WBC (Bld) 49.7 % Normal 37.0-75.0 [facility] Erythrocyte distribution width (RBC) [Ratio] 14.9 % High 11.5-14.5 [facility] Hematocrit (Bld) [Volume fraction] 29.3 % Low 36.0-48.0 [facility] Hemoglobin (Bld) [Mass/Vol] 10.0 g/dL Low 12.0-16.0 [facility] MCH (RBC) [Entitic mass] 32.5 pg Normal 26.0-35.0 [facility] MCHC (RBC) [Mass/Vol] 34.1 g/dL Normal 27.0-37.0 [facility] MCV (RBC) [Entitic vol] 95.2 fL Normal 80.0-100.0 [facility] Platelet mean volume (Bld) [Entitic vol] 6.3 fL Low 7.4-11.0 [facility] Platelets (Bld) [#/Vol] 439 10*3/uL High 130-400 [facility] RBC (Bld) [#/Vol] 3.08 10*6/uL Low 4.0-5.4 [facility] WBC (Bld) [#/Vol] 5.1 10*3/uL Normal 3.6-11.0 [facility] LIPASE,SERUMon 01-31-2024 LIPASE,SERUM 43 U/L Normal 23-300 [facility] LIVER PANELon 01-31-2024 Albumin [Mass/Vol] 3.0 g/dL Low 3.5-5.0 [facility] ALP [Catalytic activity/Vol] 107 U/L Normal 38-126 [facility] ALT [Catalytic activity/Vol] 13 U/L Normal <35 [facility] AST [Catalytic activity/Vol] 26 U/L Normal 14-36 [facility] Bilirubin [Mass/Vol] 0.2 mg/dL Normal 0.2-1.3 [facility] Bilirubin.indirect [Mass/Vol] 0.2 mg/dL Normal 0-0.4 [facility] Protein [Mass/Vol] 6.1 g/dL Low 6.3-8.2 [facility] Laboratory - Chemistry and C hemistry - challengeon 01-31-2024 Prealbumin [Mass/Vol] 11.9 mg/dL Low [facility] Albumin [Mass/Vol] 3.0 g/dL Low [facility] ALP [Catalytic activity/Vol] 107 U/L [facility] ALT [Catalytic activity/Vol] 13 U/L NINF [facility] Anion gap [Moles/Vol] Negative [facility] AST [Catalytic activity/Vol] 26 U/L [facility] Bilirubin [Mass/Vol] 0.2 mg/dL [facility] Bilirubin.direct [Mass/Vol] 0.2 mg/dL [facility] Calcium [Mass/Vol] 8.7 mg/dL [facility] Chloride [Moles/Vol] 102 mmol/L [facility] CO2 [Moles/Vol] 33 mmol/L High [facility] Creatinine [Mass/Vol] 1.10 mg/dL [facility] CRP [Mass/Vol] 27.5 mg/L High 0 - 10 MG/L [facility] GFR/1.73 sq M.predicted among blacks MDRD (S/P/Bld) [Vol rate/Area] 61 mL/min/{1.73_m2} ml/min/1.73sq .m [facility] GFR/1.73 sq M.predicted among non-blacks MDRD (S/P/Bld) [Vol rate/Area] 51 mL/min/{1.73_m2} ml/min/1.73sq .m [facility] Glucose post fast [Mass/Vol] 94 mg/dL [facility] Lipase [Catalytic activity/Vol] 43 U/L 23 - 300 U/L [facility] Potassium [Moles/Vol] 4.5 mmol/L [facility] Protein [Mass/Vol] 6.1 g/dL Low [facility] Sodium [Moles/Vol] 134 mmol/L Low [facility] Urea nitrogen [Mass/Vol] 12 mg/dL [facility] Laboratory - Hematology and Cell countson 01-31-2024 Basophils/100 WBC (Bld) 1.4 % 0.0 - 2.0 % [facility] Differential cell count method Nom (Bld) AUTO DIFF % [facility] Eosinophils (Bld) [#/Vol] 0.2 10*3/uL 0.0 - 0.7 10*3/uL [facility] Eosinophils/100 WBC (Bld) 3.6 % 0.0 - 11.0 % [facility] Erythrocyte distribution width (RBC) [Ratio] 14.9 % High 11.5 - 14.5 % [facility] Hematocrit (Bld) [Volume fraction] 29.3 % Low 36.0 - 48.0 % [facility] Hemoglobin (Bld) [Mass/Vol] 10.0 g/dL Low [facility] Lymphocytes (Bld) [#/Vol] 1.5 10*3/uL 1.2 - 3.4 10*3/uL [facility] Lymphocytes/100 WBC (Bld) 28.8 % 20.0 - 55.0 % [facility] MCH (RBC) [Entitic mass] 32.5 pg 26.0 - 35.0 PG [facility] MCHC (RBC) [Mass/Vol] 34.1 g/dL [facility] MCV (RBC) [Entitic vol] 95.2 fL [facility] Monocytes (Bld) [#/Vol] 0.8 10*3/uL High 0.0 - 0.7 10*3/uL [facility] Monocytes/100 WBC (Bld) 16.5 % High 0.0 - 10.0 % [facility] Neutrophils (Bld) [#/Vol] 2.5 10*3/uL 1.4 - 6.5 10*3/uL [facility] Neutrophils/100 WBC (Bld) 49.7 % 37.0 - 75.0 % [facility] Platelet mean volume (Bld) [Entitic vol] 6.3 fL Low [facility] Platelets (Bld) [#/Vol] 439 10*3/uL High 130 - 400 10*3/uL [facility] RBC (Bld) [#/Vol] 3.08 10*6/uL Low 4.0 - 5.4 10*6/uL [facility] WBC (Bld) [#/Vol] 5.1 10*3/uL 3.6 - 11.0 10*3/uL [facility] No Panel Informationon 01-30 Interpretation and review of laboratory results Abnormal [facility] GFR COMMENT Average GFR for 70+ years old = 75. [facility] Interpretation and review of laboratory results Abnormal [facility] ABSOLUTE BASOPHIL COUNT 0.1 10*3/uL 0.0 - 0.2 10*3/uL [facility] Interpretation and review of laboratory results Abnormal [facility] PREALBUMINon 01-31-2024 Prealbumin [Mass/Vol] 11.9 mg/dL Low 17.6-36.0 [facility] BMP FASTINGon 01-30-2024 Anion gap [Moles/Vol] 3 mmol/L Low 8-16 [facility] Calcium [Mass/Vol] 8.6 mg/dL Normal 8.4-10.2 [facility] Chloride [Moles/Vol] 101 mmol/L Normal 98-107 [facility] Comment on above: Result Comment: Shonda matthews note: Triglyceride levels of 600mg/dL or higher may positively bias chloride results by approximately 2.1 mmol CO2 [Moles/Vol] 31 mmol/L High 22-30 [facility] Creatinine [Mass/Vol] 1.00 mg/dL Normal 0.7-1.2 [facility] EST. GFR, 68 ml/min/1.73sq.m Normal [facility] EST. GFR,Non 57 ml/min/1.73sq.m Normal [facility] GFR Information Average GFR for 70+ years old = 75. Normal [facility] Comment on above: Result Comment: [employer] Supervisor aviva Kidney disease, GFR = <60. Kidney failure, GFR = <15. The GFR estimate is not adjusted for extreme body surface area or acute process, nor has it been validated for women or ethnic groups other than and . Glucose [Mass/Vol] 93 mg/dL Normal 70-100 [facility] Comment on above: Result Comment: NORMAL <100 mg/dL PREDIABETES 101-126 mg/dL DIABETES 126 mg/dL or higher Potassium [Moles/Vol] 4.4 mmol/L Normal 3.5-5.1 [facility] Sodium [Moles/Vol] 135 mmol/L Low 137-145 [facility] Urea nitrogen [Mass/Vol] 10 mg/dL Normal 7-20 [facility] C REACTIVE PROTEINon 024 CRP [Mass/Vol] 25.8 mg/L High 0-10 [facility] CBCon 01-30-2024 ABSOLUTE BAS 0.1 10*3/uL Normal 0.0-0.2 [facility] ABSOLUTE EOS 0.2 10*3/uL Normal 0.0-0.7 [facility] ABSOLUTE NEUTROPHIL COUNT 2.9 10*3/uL Normal 1.4-6.5 [facility] Basophils/100 WBC (Bld) 1.2 % Normal 0.0-2.0 [facility] DTYPE AUTO DIFF Normal [facility] Eosinophils/100 WBC (Bld) 3.0 % Normal 0.0-11.0 [facility] Lymphocytes (Bld) [#/Vol] 1.4 10*3/uL Normal 1.2-3.4 [facility] Lymphocytes/100 WBC (Bld) 26.1 % Normal 20.0-55.0 [facility] Monocytes (Bld) [#/Vol] 0.8 10*3/uL High 0.0-0.7 [facility] Monocytes/100 WBC (Bld) 15.2 % High 0.0-10.0 [facility] Neutrophils/100 WBC (Bld) 54.5 % Normal 37.0-75.0 [facility] Erythrocyte distribution width (RBC) [Ratio] 15.0 % High 11.5-14.5 [facility] Hematocrit (Bld) [Volume fraction] 29.9 % Low 36.0-48.0 [facility] Hemoglobin (Bld) [Mass/Vol] 10.3 g/dL Low 12.0-16.0 [facility] MCH (RBC) [Entitic mass] 32.9 pg Normal 26.0-35.0 [facility] MCHC (RBC) [Mass/Vol] 34.4 g/dL Normal 27.0-37.0 [facility] MCV (RBC) [Entitic vol] 95.6 fL Normal 80.0-100.0 [facility] Platelet mean volume (Bld) [Entitic vol] 6.3 fL Low 7.4-11.0 [facility] Platelets (Bld) [#/Vol] 466 10*3/uL High 130-400 [facility] RBC (Bld) [#/Vol] 3.12 10*6/uL Low 4.0-5.4 [facility] WBC (Bld) [#/Vol] 5.3 10*3/uL Normal 3.6-11.0 [facility] Laboratory - Chemistry and C hemistry - challengeon 01-30-2024 Anion gap [Moles/Vol] 3 mmol/L Low [facility] Calcium [Mass/Vol] 8.6 mg/dL [facility] Chloride [Moles/Vol] 101 mmol/L [facility] CO2 [Moles/Vol] 31 mmol/L High [facility] Creatinine [Mass/Vol] 1.00 mg/dL [facility] CRP [Mass/Vol] 25.8 mg/L High 0 - 10 MG/L [facility] GFR/1.73 sq M.predicted among blacks MDRD (S/P/Bld) [Vol rate/Area] 68 mL/min/{1.73_m2} ml/min/1.73sq .m [facility] GFR/1.73 sq M.predicted among non-blacks MDRD (S/P/Bld) [Vol rate/Area] 57 mL/min/{1.73_m2} ml/min/1.73sq .m [facility] Glucose post fast [Mass/Vol] 93 mg/dL [facility] Potassium [Moles/Vol] 4.4 mmol/L [facility] Sodium [Moles/Vol] 135 mmol/L Low [facility] Urea nitrogen [Mass/Vol] 10 mg/dL [facility] Laboratory - Hematology and Cell countson 01-30-2024 Basophils/100 WBC (Bld) 1.2 % 0.0 - 2.0 % [facility] Differential cell count method Nom (Bld) AUTO DIFF % [facility] Eosinophils (Bld) [#/Vol] 0.2 10*3/uL 0.0 - 0.7 10*3/uL [facility] Eosinophils/100 WBC (Bld) 3.0 % 0.0 - 11.0 % [facility] Erythrocyte distribution width (RBC) [Ratio] 15.0 % High 11.5 - 14.5 % [facility] Hematocrit (Bld) [Volume fraction] 29.9 % Low 36.0 - 48.0 % [facility] Hemoglobin (Bld) [Mass/Vol] 10.3 g/dL Low [facility] Lymphocytes (Bld) [#/Vol] 1.4 10*3/uL 1.2 - 3.4 10*3/uL [facility] Lymphocytes/100 WBC (Bld) 26.1 % 20.0 - 55.0 % [facility] MCH (RBC) [Entitic mass] 32.9 pg 26.0 - 35.0 PG [facility] MCHC (RBC) [Mass/Vol] 34.4 g/dL [facility] MCV (RBC) [Entitic vol] 95.6 fL [facility] Monocytes (Bld) [#/Vol] 0.8 10*3/uL High 0.0 - 0.7 10*3/uL [facility] Monocytes/100 WBC (Bld) 15.2 % High 0.0 - 10.0 % [facility] Neutrophils (Bld) [#/Vol] 2.9 10*3/uL 1.4 - 6.5 10*3/uL [facility] Neutrophils/100 WBC (Bld) 54.5 % 37.0 - 75.0 % [facility] Platelet mean volume (Bld) [Entitic vol] 6.3 fL Low [facility] Platelets (Bld) [#/Vol] 466 10*3/uL High 130 - 400 10*3/uL [facility] RBC (Bld) [#/Vol] 3.12 10*6/uL Low 4.0 - 5.4 10*6/uL [facility] WBC (Bld) [#/Vol] 5.3 10*3/uL 3.6 - 11.0 10*3/uL [facility] No Panel Informationon 01-29 GFR COMMENT Average GFR for 70+ years old = 75. [facility] Interpretation and review of laboratory results Abnormal [facility] ABSOLUTE BASOPHIL COUNT 0.1 10*3/uL 0.0 - 0.2 10*3/uL [facility] Interpretation and review of laboratory results Abnormal [facility] BMP FASTINGon 01-29-2024 Anion gap [Moles/Vol] 3 mmol/L Low 8-16 [facility] Calcium [Mass/Vol] 8.3 mg/dL Low 8.4-10.2 [facility] Chloride [Moles/Vol] 101 mmol/L Normal 98-107 [facility] Comment on above: Result Comment: Shonda matthews note: Triglyceride levels of 600mg/dL or higher may positively bias chloride results by approximately 2.1 mmol CO2 [Moles/Vol] 30 mmol/L Normal 22-30 [facility] Creatinine [Mass/Vol] 0.80 mg/dL Normal 0.7-1.2 [facility] EST. GFR, 89 ml/min/1.73sq.m [facility] EST. GFR,Non 73 ml/min/1.73sq.m [facility] GFR Information Average GFR for 70+ years old = 75. Normal [facility] Comment on above: Result Comment: [employer] Supervisor aviva Kidney disease, GFR = <60. Kidney failure, GFR = <15. The GFR estimate is not adjusted for extreme body surface area or acute process, nor has it been validated for women or ethnic groups other than and . Glucose [Mass/Vol] 94 mg/dL Normal 70-100 [facility] Comment on above: Result Comment: NORMAL <100 mg/dL PREDIABETES 101-126 mg/dL DIABETES 126 mg/dL or higher Potassium [Moles/Vol] 4.2 mmol/L Normal 3.5-5.1 [facility] Sodium [Moles/Vol] 134 mmol/L Low 137-145 [facility] Urea nitrogen [Mass/Vol] 9 mg/dL Normal 7-20 [facility] C REACTIVE PROTEINon 024 CRP [Mass/Vol] 28.9 mg/L High 0-10 [facility] CBCon 01-29-2024 ABSOLUTE BAS 0.1 10*3/uL Normal 0.0-0.2 [facility] ABSOLUTE EOS 0.2 10*3/uL Normal 0.0-0.7 [facility] ABSOLUTE NEUTROPHIL COUNT 2.6 10*3/uL Normal 1.4-6.5 [facility] Basophils/100 WBC (Bld) 1.1 % Normal 0.0-2.0 [facility] DTYPE AUTO DIFF Normal [facility] Eosinophils/100 WBC (Bld) 4.1 % Normal 0.0-11.0 [facility] Lymphocytes (Bld) [#/Vol] 1.3 10*3/uL Normal 1.2-3.4 [facility] Lymphocytes/100 WBC (Bld) 26.6 % Normal 20.0-55.0 [facility] Monocytes (Bld) [#/Vol] 0.7 10*3/uL Normal 0.0-0.7 [facility] Monocytes/100 WBC (Bld) 13.9 % High 0.0-10.0 [facility] Neutrophils/100 WBC (Bld) 54.3 % Normal 37.0-75.0 [facility] Erythrocyte distribution width (RBC) [Ratio] 14.7 % High 11.5-14.5 [facility] Hematocrit (Bld) [Volume fraction] 29.3 % Low 36.0-48.0 [facility] Hemoglobin (Bld) [Mass/Vol] 10.0 g/dL Low 12.0-16.0 [facility] MCH (RBC) [Entitic mass] 32.7 pg Normal 26.0-35.0 [facility] MCHC (RBC) [Mass/Vol] 34.3 g/dL Normal 27.0-37.0 [facility] MCV (RBC) [Entitic vol] 95.2 fL Normal 80.0-100.0 [facility] Platelet mean volume (Bld) [Entitic vol] 6.4 fL Low 7.4-11.0 [facility] Platelets (Bld) [#/Vol] 438 10*3/uL High 130-400 [facility] RBC (Bld) [#/Vol] 3.07 10*6/uL Low 4.0-5.4 [facility] WBC (Bld) [#/Vol] 4.7 10*3/uL Normal 3.6-11.0 [facility] Laboratory - Chemistry and C hemistry - challengeon 01-29-2024 Anion gap [Moles/Vol] 3 mmol/L Low [facility] Calcium [Mass/Vol] 8.3 mg/dL Low [facility] Chloride [Moles/Vol] 101 mmol/L [facility] CO2 [Moles/Vol] 30 mmol/L [facility] Creatinine [Mass/Vol] 0.80 mg/dL [facility] CRP [Mass/Vol] 28.9 mg/L High 0 - 10 MG/L [facility] GFR/1.73 sq M.predicted among blacks MDRD (S/P/Bld) [Vol rate/Area] 89 mL/min/{1.73_m2} ml/min/1.73sq .m [facility] GFR/1.73 sq M.predicted among non-blacks MDRD (S/P/Bld) [Vol rate/Area] 73 mL/min/{1.73_m2} ml/min/1.73sq .m [facility] Glucose post fast [Mass/Vol] 94 mg/dL [facility] Potassium [Moles/Vol] 4.2 mmol/L [facility] Sodium [Moles/Vol] 134 mmol/L Low [facility] Urea nitrogen [Mass/Vol] 9 mg/dL [facility] Laboratory - Hematology and Cell countson 01-29-2024 Basophils/100 WBC (Bld) 1.1 % 0.0 - 2.0 % [facility] Differential cell count method Nom (Bld) AUTO DIFF % [facility] Eosinophils (Bld) [#/Vol] 0.2 10*3/uL 0.0 - 0.7 10*3/uL [facility] Eosinophils/100 WBC (Bld) 4.1 % 0.0 - 11.0 % [facility] Erythrocyte distribution width (RBC) [Ratio] 14.7 % High 11.5 - 14.5 % [facility] Hematocrit (Bld) [Volume fraction] 29.3 % Low 36.0 - 48.0 % [facility] Hemoglobin (Bld) [Mass/Vol] 10.0 g/dL Low [facility] Lymphocytes (Bld) [#/Vol] 1.3 10*3/uL 1.2 - 3.4 10*3/uL [facility] Lymphocytes/100 WBC (Bld) 26.6 % 20.0 - 55.0 % [facility] MCH (RBC) [Entitic mass] 32.7 pg 26.0 - 35.0 PG [facility] MCHC (RBC) [Mass/Vol] 34.3 g/dL [facility] MCV (RBC) [Entitic vol] 95.2 fL [facility] Monocytes (Bld) [#/Vol] 0.7 10*3/uL 0.0 - 0.7 10*3/uL [facility] Monocytes/100 WBC (Bld) 13.9 % High 0.0 - 10.0 % [facility] Neutrophils (Bld) [#/Vol] 2.6 10*3/uL 1.4 - 6.5 10*3/uL [facility] Neutrophils/100 WBC (Bld) 54.3 % 37.0 - 75.0 % [facility] Platelet mean volume (Bld) [Entitic vol] 6.4 fL Low [facility] Platelets (Bld) [#/Vol] 438 10*3/uL High 130 - 400 10*3/uL [facility] RBC (Bld) [#/Vol] 3.07 10*6/uL Low 4.0 - 5.4 10*6/uL [facility] WBC (Bld) [#/Vol] 4.7 10*3/uL 3.6 - 11.0 10*3/uL [facility] No Panel Informationon 01-28 GFR COMMENT Average GFR for 70+ years old = 75. [facility] Interpretation and review of laboratory results Abnormal [facility] ABSOLUTE BASOPHIL COUNT 0.1 10*3/uL 0.0 - 0.2 10*3/uL [facility] Interpretation and review of laboratory results Abnormal [facility] BMP FASTINGon 01-28-2024 Anion gap [Moles/Vol] 3 mmol/L Low 8-16 [facility] Calcium [Mass/Vol] 8.8 mg/dL Normal 8.4-10.2 [facility] Chloride [Moles/Vol] 100 mmol/L Normal 98-107 [facility] Comment on above: Result Comment: Shonda matthews note: Triglyceride levels of 600mg/dL or higher may positively bias chloride results by approximately 2.1 mmol CO2 [Moles/Vol] 33 mmol/L High 22-30 [facility] Creatinine [Mass/Vol] 0.80 mg/dL Normal 0.7-1.2 [facility] EST. GFR, 89 ml/min/1.73sq.m [facility] EST. GFR,Non 73 ml/min/1.73sq.m [facility] GFR Information Average GFR for 70+ years old = 75. Normal [facility] Comment on above: Result Comment: [employer] aviva Kidney disease, GFR = <60. Kidney failure, GFR = <15. The GFR estimate is not adjusted for extreme body surface area or acute process, nor has it been validated for women or ethnic groups other than and . Glucose [Mass/Vol] 86 mg/dL Normal 70-100 [facility] Comment on above: Result Comment: NORMAL <100 mg/dL PREDIABETES 101-126 mg/dL DIABETES 126 mg/dL or higher Potassium [Moles/Vol] 4.4 mmol/L Normal 3.5-5.1 [facility] Sodium [Moles/Vol] 136 mmol/L Low 137-145 [facility] Urea nitrogen [Mass/Vol] 11 mg/dL Normal 7-20 [facility] C REACTIVE PROTEINon 024 CRP [Mass/Vol] 30.5 mg/L High 0-10 [facility] CBCon 01-28-2024 ABSOLUTE BAS 0.1 10*3/uL Normal 0.0-0.2 [facility] ABSOLUTE EOS 0.2 10*3/uL Normal 0.0-0.7 [facility] ABSOLUTE NEUTROPHIL COUNT 3.0 10*3/uL Normal 1.4-6.5 [facility] Basophils/100 WBC (Bld) 1.1 % Normal 0.0-2.0 [facility] DTYPE AUTO DIFF Normal [facility] Eosinophils/100 WBC (Bld) 3.2 % Normal 0.0-11.0 [facility] Lymphocytes (Bld) [#/Vol] 1.3 10*3/uL Normal 1.2-3.4 [facility] Lymphocytes/100 WBC (Bld) 25.7 % Normal 20.0-55.0 [facility] Monocytes (Bld) [#/Vol] 0.6 10*3/uL Normal 0.0-0.7 [facility] Monocytes/100 WBC (Bld) 12.0 % High 0.0-10.0 [facility] Neutrophils/100 WBC (Bld) 58.0 % Normal 37.0-75.0 [facility] Erythrocyte distribution width (RBC) [Ratio] 14.6 % High 11.5-14.5 [facility] Hematocrit (Bld) [Volume fraction] 31.3 % Low 36.0-48.0 [facility] Hemoglobin (Bld) [Mass/Vol] 10.6 g/dL Low 12.0-16.0 [facility] MCH (RBC) [Entitic mass] 32.3 pg Normal 26.0-35.0 [facility] MCHC (RBC) [Mass/Vol] 34.0 g/dL Normal 27.0-37.0 [facility] MCV (RBC) [Entitic vol] 95.0 fL Normal 80.0-100.0 [facility] Platelet mean volume (Bld) [Entitic vol] 6.5 fL Low 7.4-11.0 [facility] Platelets (Bld) [#/Vol] 470 10*3/uL High 130-400 [facility] RBC (Bld) [#/Vol] 3.30 10*6/uL Low 4.0-5.4 [facility] WBC (Bld) [#/Vol] 5.1 10*3/uL Normal 3.6-11.0 [facility] Laboratory - Chemistry and C hemistry - challengeon 01-28-2024 Anion gap [Moles/Vol] 3 mmol/L Low [facility] Calcium [Mass/Vol] 8.8 mg/dL [facility] Chloride [Moles/Vol] 100 mmol/L [facility] CO2 [Moles/Vol] 33 mmol/L High [facility] Creatinine [Mass/Vol] 0.80 mg/dL [facility] CRP [Mass/Vol] 30.5 mg/L High 0 - 10 MG/L [facility] GFR/1.73 sq M.predicted among blacks MDRD (S/P/Bld) [Vol rate/Area] 89 mL/min/{1.73_m2} ml/min/1.73sq .m [facility] GFR/1.73 sq M.predicted among non-blacks MDRD (S/P/Bld) [Vol rate/Area] 73 mL/min/{1.73_m2} ml/min/1.73sq .m [facility] Glucose post fast [Mass/Vol] 86 mg/dL [facility] Potassium [Moles/Vol] 4.4 mmol/L [facility] Sodium [Moles/Vol] 136 mmol/L Low [facility] Urea nitrogen [Mass/Vol] 11 mg/dL [facility] Laboratory - Hematology and Cell countson 01-28-2024 Basophils/100 WBC (Bld) 1.1 % 0.0 - 2.0 % [facility] Differential cell count method Nom (Bld) AUTO DIFF % [facility] Eosinophils (Bld) [#/Vol] 0.2 10*3/uL 0.0 - 0.7 10*3/uL [facility] Eosinophils/100 WBC (Bld) 3.2 % 0.0 - 11.0 % [facility] Erythrocyte distribution width (RBC) [Ratio] 14.6 % High 11.5 - 14.5 % [facility] Hematocrit (Bld) [Volume fraction] 31.3 % Low 36.0 - 48.0 % [facility] Hemoglobin (Bld) [Mass/Vol] 10.6 g/dL Low [facility] Lymphocytes (Bld) [#/Vol] 1.3 10*3/uL 1.2 - 3.4 10*3/uL [facility] Lymphocytes/100 WBC (Bld) 25.7 % 20.0 - 55.0 % [facility] MCH (RBC) [Entitic mass] 32.3 pg 26.0 - 35.0 PG [facility] MCHC (RBC) [Mass/Vol] 34.0 g/dL [facility] MCV (RBC) [Entitic vol] 95.0 fL [facility] Monocytes (Bld) [#/Vol] 0.6 10*3/uL 0.0 - 0.7 10*3/uL [facility] Monocytes/100 WBC (Bld) 12.0 % High 0.0 - 10.0 % [facility] Neutrophils (Bld) [#/Vol] 3.0 10*3/uL 1.4 - 6.5 10*3/uL [facility] Neutrophils/100 WBC (Bld) 58.0 % 37.0 - 75.0 % [facility] Platelet mean volume (Bld) [Entitic vol] 6.5 fL Low [facility] Platelets (Bld) [#/Vol] 470 10*3/uL High 130 - 400 10*3/uL [facility] RBC (Bld) [#/Vol] 3.30 10*6/uL Low 4.0 - 5.4 10*6/uL [facility] WBC (Bld) [#/Vol] 5.1 10*3/uL 3.6 - 11.0 10*3/uL [facility] No Panel Informationon 01-27 GFR COMMENT Average GFR for 70+ years old = 75. [facility] Interpretation and review of laboratory results Abnormal [facility] ABSOLUTE BASOPHIL COUNT 0.1 10*3/uL 0.0 - 0.2 10*3/uL [facility] Interpretation and review of laboratory results Abnormal [facility] BMP FASTINGon 01-27-2024 Anion gap [Moles/Vol] 3 mmol/L Low 8-16 [facility] Calcium [Mass/Vol] 8.6 mg/dL Normal 8.4-10.2 [facility] Chloride [Moles/Vol] 102 mmol/L Normal 98-107 [facility] Comment on above: Result Comment: Shonda matthews note: Triglyceride levels of 600mg/dL or higher may positively bias chloride results by approximately 2.1 mmol CO2 [Moles/Vol] 30 mmol/L Normal 22-30 [facility] Creatinine [Mass/Vol] 0.70 mg/dL Normal 0.7-1.2 [facility] EST. GFR, 103 ml/min/1.73sq.m Normal [facility] EST. GFR,Non 85 ml/min/1.73sq.m Normal [facility] GFR Information Average GFR for 70+ years old = 75. Normal [facility] Comment on above: Result Comment: [employer] aviva Kidney disease, GFR = <60. Kidney failure, GFR = <15. The GFR estimate is not adjusted for extreme body surface area or acute process, nor has it been validated for women or ethnic groups other than and . Glucose [Mass/Vol] 98 mg/dL Normal 70-100 [facility] Comment on above: Result Comment: NORMAL <100 mg/dL PREDIABETES 101-126 mg/dL DIABETES 126 mg/dL or higher Potassium [Moles/Vol] 4.0 mmol/L Normal 3.5-5.1 [facility] Sodium [Moles/Vol] 135 mmol/L Low 137-145 [facility] Urea nitrogen [Mass/Vol] 11 mg/dL Normal 7-20 [facility] C REACTIVE PROTEINon 024 CRP [Mass/Vol] 28.4 mg/L High 0-10 [facility] CBCon 01-27-2024 ABSOLUTE BAS 0.0 10*3/uL Normal 0.0-0.2 [facility] ABSOLUTE EOS 0.2 10*3/uL Normal 0.0-0.7 [facility] ABSOLUTE NEUTROPHIL COUNT 3.3 10*3/uL Normal 1.4-6.5 [facility] Basophils/100 WBC (Bld) 0.9 % Normal 0.0-2.0 [facility] DTYPE AUTO DIFF Normal [facility] Eosinophils/100 WBC (Bld) 3.3 % Normal 0.0-11.0 [facility] Lymphocytes (Bld) [#/Vol] 1.3 10*3/uL Normal 1.2-3.4 [facility] Lymphocytes/100 WBC (Bld) 23.9 % Normal 20.0-55.0 [facility] Monocytes (Bld) [#/Vol] 0.6 10*3/uL Normal 0.0-0.7 [facility] Monocytes/100 WBC (Bld) 11.0 % High 0.0-10.0 [facility] Neutrophils/100 WBC (Bld) 60.9 % Normal 37.0-75.0 [facility] Erythrocyte distribution width (RBC) [Ratio] 14.9 % High 11.5-14.5 [facility] Hematocrit (Bld) [Volume fraction] 30.7 % Low 36.0-48.0 [facility] Hemoglobin (Bld) [Mass/Vol] 10.3 g/dL Low 12.0-16.0 [facility] MCH (RBC) [Entitic mass] 32.2 pg Normal 26.0-35.0 [facility] MCHC (RBC) [Mass/Vol] 33.4 g/dL Normal 27.0-37.0 [facility] MCV (RBC) [Entitic vol] 96.3 fL Normal 80.0-100.0 [facility] Platelet mean volume (Bld) [Entitic vol] 6.6 fL Low 7.4-11.0 [facility] Platelets (Bld) [#/Vol] 438 10*3/uL High 130-400 [facility] RBC (Bld) [#/Vol] 3.19 10*6/uL Low 4.0-5.4 [facility] WBC (Bld) [#/Vol] 5.4 10*3/uL Normal 3.6-11.0 [facility] Laboratory - Chemistry and C hemistry - challengeon 01-27-2024 Anion gap [Moles/Vol] 3 mmol/L Low [facility] Calcium [Mass/Vol] 8.6 mg/dL [facility] Chloride [Moles/Vol] 102 mmol/L [facility] CO2 [Moles/Vol] 30 mmol/L [facility] Creatinine [Mass/Vol] 0.70 mg/dL [facility] CRP [Mass/Vol] 28.4 mg/L High 0 - 10 MG/L [facility] GFR/1.73 sq M.predicted among blacks MDRD (S/P/Bld) [Vol rate/Area] 103 mL/min/{1.73_m2} ml/min/1.73sq .m [facility] GFR/1.73 sq M.predicted among non-blacks MDRD (S/P/Bld) [Vol rate/Area] 85 mL/min/{1.73_m2} ml/min/1.73sq .m [facility] Glucose post fast [Mass/Vol] 98 mg/dL [facility] Potassium [Moles/Vol] 4.0 mmol/L [facility] Sodium [Moles/Vol] 135 mmol/L Low [facility] Urea nitrogen [Mass/Vol] 11 mg/dL [facility] Laboratory - Hematology and Cell countson 01-27-2024 Basophils/100 WBC (Bld) 0.9 % 0.0 - 2.0 % [facility] Differential cell count method Nom (Bld) AUTO DIFF % [facility] Eosinophils (Bld) [#/Vol] 0.2 10*3/uL 0.0 - 0.7 10*3/uL [facility] Eosinophils/100 WBC (Bld) 3.3 % 0.0 - 11.0 % [facility] Erythrocyte distribution width (RBC) [Ratio] 14.9 % High 11.5 - 14.5 % [facility] Hematocrit (Bld) [Volume fraction] 30.7 % Low 36.0 - 48.0 % [facility] Hemoglobin (Bld) [Mass/Vol] 10.3 g/dL Low [facility] Lymphocytes (Bld) [#/Vol] 1.3 10*3/uL 1.2 - 3.4 10*3/uL [facility] Lymphocytes/100 WBC (Bld) 23.9 % 20.0 - 55.0 % [facility] MCH (RBC) [Entitic mass] 32.2 pg 26.0 - 35.0 PG [facility] MCHC (RBC) [Mass/Vol] 33.4 g/dL [facility] MCV (RBC) [Entitic vol] 96.3 fL [facility] Monocytes (Bld) [#/Vol] 0.6 10*3/uL 0.0 - 0.7 10*3/uL [facility] Monocytes/100 WBC (Bld) 11.0 % High 0.0 - 10.0 % [facility] Neutrophils (Bld) [#/Vol] 3.3 10*3/uL 1.4 - 6.5 10*3/uL [facility] Neutrophils/100 WBC (Bld) 60.9 % 37.0 - 75.0 % [facility] Platelet mean volume (Bld) [Entitic vol] 6.6 fL Low [facility] Platelets (Bld) [#/Vol] 438 10*3/uL High 130 - 400 10*3/uL [facility] RBC (Bld) [#/Vol] 3.19 10*6/uL Low 4.0 - 5.4 10*6/uL [facility] WBC (Bld) [#/Vol] 5.4 10*3/uL 3.6 - 11.0 10*3/uL [facility] No Panel Informationon 01-26 GFR COMMENT Average GFR for 70+ years old = 75. [facility] Interpretation and review of laboratory results Abnormal [facility] ABSOLUTE BASOPHIL COUNT 0.0 10*3/uL 0.0 - 0.2 10*3/uL [facility] Interpretation and review of laboratory results Abnormal [facility] BMP FASTINGon 01-26-2024 Anion gap [Moles/Vol] 1 mmol/L Low 8-16 [facility] Calcium [Mass/Vol] 8.2 mg/dL Low 8.4-10.2 [facility] Chloride [Moles/Vol] 102 mmol/L Normal 98-107 [facility] Comment on above: Result Comment: Shonda matthews note: Triglyceride levels of 600mg/dL or higher may positively bias chloride results by approximately 2.1 mmol CO2 [Moles/Vol] 31 mmol/L High 22-30 [facility] Creatinine [Mass/Vol] 0.70 mg/dL Normal 0.7-1.2 [facility] EST. GFR, 103 ml/min/1.73sq.m Normal [facility] EST. GFR,Non 85 ml/min/1.73sq.m [facility] GFR Information Average GFR for 70+ years old = 75. Normal [facility] Comment on above: Result Comment: [employer]visor aviva Kidney disease, GFR = <60. Kidney failure, GFR = <15. The GFR estimate is not adjusted for extreme body surface area or acute process, nor has it been validated for women or ethnic groups other than and . Glucose [Mass/Vol] 109 mg/dL High 70-100 [facility] Comment on above: Result Comment: NORMAL <100 mg/dL PREDIABETES 101-126 mg/dL DIABETES 126 mg/dL or higher Potassium [Moles/Vol] 3.9 mmol/L Normal 3.5-5.1 [facility] Sodium [Moles/Vol] 134 mmol/L Low 137-145 [facility] Urea nitrogen [Mass/Vol] 12 mg/dL Normal 7-20 [facility] C REACTIVE PROTEINon 01-25- 024 CRP [Mass/Vol] 28.4 mg/L High 0-10 [facility] CBCon 01-26-2024 ABSOLUTE BAS 0.0 10*3/uL Normal 0.0-0.2 [facility] ABSOLUTE EOS 0.2 10*3/uL Normal 0.0-0.7 [facility] ABSOLUTE NEUTROPHIL COUNT 3.7 10*3/uL Normal 1.4-6.5 [facility] Basophils/100 WBC (Bld) 0.9 % Normal 0.0-2.0 [facility] DTYPE AUTO DIFF Normal [facility] Eosinophils/100 WBC (Bld) 2.8 % Normal 0.0-11.0 [facility] Lymphocytes (Bld) [#/Vol] 1.2 10*3/uL Normal 1.2-3.4 [facility] Lymphocytes/100 WBC (Bld) 21.0 % Normal 20.0-55.0 [facility] Monocytes (Bld) [#/Vol] 0.7 10*3/uL Normal 0.0-0.7 [facility] Monocytes/100 WBC (Bld) 11.6 % High 0.0-10.0 [facility] Neutrophils/100 WBC (Bld) 63.7 % Normal 37.0-75.0 [facility] Erythrocyte distribution width (RBC) [Ratio] 14.6 % High 11.5-14.5 [facility] Hematocrit (Bld) [Volume fraction] 29.0 % Low 36.0-48.0 [facility] Hemoglobin (Bld) [Mass/Vol] 9.8 g/dL Low 12.0-16.0 [facility] MCH (RBC) [Entitic mass] 32.0 pg Normal 26.0-35.0 [facility] MCHC (RBC) [Mass/Vol] 33.6 g/dL Normal 27.0-37.0 [facility] MCV (RBC) [Entitic vol] 95.3 fL Normal 80.0-100.0 [facility] Platelet mean volume (Bld) [Entitic vol] 6.7 fL Low 7.4-11.0 [facility] Platelets (Bld) [#/Vol] 440 10*3/uL High 130-400 [facility] RBC (Bld) [#/Vol] 3.05 10*6/uL Low 4.0-5.4 [facility] WBC (Bld) [#/Vol] 5.9 10*3/uL Normal 3.6-11.0 [facility] Laboratory - Chemistry and C hemistry - challengeon 01-26-2024 Anion gap [Moles/Vol] 1 mmol/L Low [facility] Calcium [Mass/Vol] 8.2 mg/dL Low [facility] Chloride [Moles/Vol] 102 mmol/L [facility] CO2 [Moles/Vol] 31 mmol/L High [facility] Creatinine [Mass/Vol] 0.70 mg/dL [facility] CRP [Mass/Vol] 28.4 mg/L High 0 - 10 MG/L [facility] GFR/1.73 sq M.predicted among blacks MDRD (S/P/Bld) [Vol rate/Area] 103 mL/min/{1.73_m2} ml/min/1.73sq .m [facility] GFR/1.73 sq M.predicted among non-blacks MDRD (S/P/Bld) [Vol rate/Area] 85 mL/min/{1.73_m2} ml/min/1.73sq .m [facility] Glucose post fast [Mass/Vol] 109 mg/dL High [facility] Potassium [Moles/Vol] 3.9 mmol/L [facility] Sodium [Moles/Vol] 134 mmol/L Low [facility] Urea nitrogen [Mass/Vol] 12 mg/dL [facility] Laboratory - Hematology and Cell countson 01-26-2024 Basophils/100 WBC (Bld) 0.9 % 0.0 - 2.0 % [facility] Differential cell count method Nom (Bld) AUTO DIFF % [facility] Eosinophils (Bld) [#/Vol] 0.2 10*3/uL 0.0 - 0.7 10*3/uL [facility] Eosinophils/100 WBC (Bld) 2.8 % 0.0 - 11.0 % [facility] Erythrocyte distribution width (RBC) [Ratio] 14.6 % High 11.5 - 14.5 % [facility] Hematocrit (Bld) [Volume fraction] 29.0 % Low 36.0 - 48.0 % [facility] Hemoglobin (Bld) [Mass/Vol] 9.8 g/dL Low [facility] Lymphocytes (Bld) [#/Vol] 1.2 10*3/uL 1.2 - 3.4 10*3/uL [facility] Lymphocytes/100 WBC (Bld) 21.0 % 20.0 - 55.0 % [facility] MCH (RBC) [Entitic mass] 32.0 pg 26.0 - 35.0 PG [facility] MCHC (RBC) [Mass/Vol] 33.6 g/dL [facility] MCV (RBC) [Entitic vol] 95.3 fL [facility] Monocytes (Bld) [#/Vol] 0.7 10*3/uL 0.0 - 0.7 10*3/uL [facility] Monocytes/100 WBC (Bld) 11.6 % High 0.0 - 10.0 % [facility] Neutrophils (Bld) [#/Vol] 3.7 10*3/uL 1.4 - 6.5 10*3/uL [facility] Neutrophils/100 WBC (Bld) 63.7 % 37.0 - 75.0 % [facility] Platelet mean volume (Bld) [Entitic vol] 6.7 fL Low [facility] Platelets (Bld) [#/Vol] 440 10*3/uL High 130 - 400 10*3/uL [facility] RBC (Bld) [#/Vol] 3.05 10*6/uL Low 4.0 - 5.4 10*6/uL [facility] WBC (Bld) [#/Vol] 5.9 10*3/uL 3.6 - 11.0 10*3/uL [facility] No Panel Informationon 01-25 GFR COMMENT Average GFR for 70+ years old = 75. [facility] Interpretation and review of laboratory results Abnormal [facility] ABSOLUTE BASOPHIL COUNT 0.0 10*3/uL 0.0 - 0.2 10*3/uL [facility] Interpretation and review of laboratory results Abnormal [facility] BMP FASTINGon 01-25-2024 Anion gap [Moles/Vol] 3 mmol/L Low 8-16 [facility] Calcium [Mass/Vol] 8.3 mg/dL Low 8.4-10.2 [facility] Chloride [Moles/Vol] 101 mmol/L Normal 98-107 [facility] Comment on above: Result Comment: Shonda matthews note: Triglyceride levels of 600mg/dL or higher may positively bias chloride results by approximately 2.1 mmol CO2 [Moles/Vol] 32 mmol/L High 22-30 [facility] Creatinine [Mass/Vol] 0.70 mg/dL Normal 0.7-1.2 [facility] EST. GFR, 103 ml/min/1.73sq.m Normal [facility] EST. GFR,Non 85 ml/min/1.73sq.m Normal [facility] GFR Information Average GFR for 70+ years old = 75. Normal [facility] Comment on above: Result Comment: [employer]visor aviva Kidney disease, GFR = <60. Kidney failure, GFR = <15. The GFR estimate is not adjusted for extreme body surface area or acute process, nor has it been validated for women or ethnic groups other than and . Glucose [Mass/Vol] 92 mg/dL Normal 70-100 [facility] Comment on above: Result Comment: NORMAL <100 mg/dL PREDIABETES 101-126 mg/dL DIABETES 126 mg/dL or higher Potassium [Moles/Vol] 3.8 mmol/L Normal 3.5-5.1 [facility] Sodium [Moles/Vol] 136 mmol/L Low 137-145 [facility] Urea nitrogen [Mass/Vol] 6 mg/dL Low 7-20 [facility] C REACTIVE PROTEINon 024 CRP [Mass/Vol] 33.6 mg/L High 0-10 [facility] CBCon 01-25-2024 ABSOLUTE BAS 0.0 10*3/uL Normal 0.0-0.2 [facility] ABSOLUTE EOS 0.2 10*3/uL Normal 0.0-0.7 [facility] ABSOLUTE NEUTROPHIL COUNT 3.7 10*3/uL Normal 1.4-6.5 [facility] Basophils/100 WBC (Bld) 0.7 % Normal 0.0-2.0 [facility] DTYPE AUTO DIFF Normal [facility] Eosinophils/100 WBC (Bld) 2.6 % Normal 0.0-11.0 [facility] Lymphocytes (Bld) [#/Vol] 1.2 10*3/uL Normal 1.2-3.4 [facility] Lymphocytes/100 WBC (Bld) 21.6 % Normal 20.0-55.0 [facility] Monocytes (Bld) [#/Vol] 0.6 10*3/uL Normal 0.0-0.7 [facility] Monocytes/100 WBC (Bld) 11.3 % High 0.0-10.0 [facility] Neutrophils/100 WBC (Bld) 63.8 % Normal 37.0-75.0 [facility] Erythrocyte distribution width (RBC) [Ratio] 14.4 % Normal 11.5-14.5 [facility] Hematocrit (Bld) [Volume fraction] 29.4 % Low 36.0-48.0 [facility] Hemoglobin (Bld) [Mass/Vol] 10.1 g/dL Low 12.0-16.0 [facility] MCH (RBC) [Entitic mass] 32.5 pg Normal 26.0-35.0 [facility] MCHC (RBC) [Mass/Vol] 34.3 g/dL Normal 27.0-37.0 [facility] MCV (RBC) [Entitic vol] 94.8 fL Normal 80.0-100.0 [facility] Platelet mean volume (Bld) [Entitic vol] 6.7 fL Low 7.4-11.0 [facility] Platelets (Bld) [#/Vol] 440 10*3/uL High 130-400 [facility] RBC (Bld) [#/Vol] 3.10 10*6/uL Low 4.0-5.4 [facility] WBC (Bld) [#/Vol] 5.7 10*3/uL Normal 3.6-11.0 [facility] Laboratory - Chemistry and C hemistry - challengeon 01-25-2024 Anion gap [Moles/Vol] 3 mmol/L Low [facility] Calcium [Mass/Vol] 8.3 mg/dL Low [facility] Chloride [Moles/Vol] 101 mmol/L [facility] CO2 [Moles/Vol] 32 mmol/L High [facility] Creatinine [Mass/Vol] 0.70 mg/dL [facility] CRP [Mass/Vol] 33.6 mg/L High 0 - 10 MG/L [facility] GFR/1.73 sq M.predicted among blacks MDRD (S/P/Bld) [Vol rate/Area] 103 mL/min/{1.73_m2} ml/min/1.73sq .m [facility] GFR/1.73 sq M.predicted among non-blacks MDRD (S/P/Bld) [Vol rate/Area] 85 mL/min/{1.73_m2} ml/min/1.73sq .m [facility] Glucose post fast [Mass/Vol] 92 mg/dL [facility] Potassium [Moles/Vol] 3.8 mmol/L [facility] Sodium [Moles/Vol] 136 mmol/L Low [facility] Urea nitrogen [Mass/Vol] 6 mg/dL Low [facility] Laboratory - Hematology and Cell countson 01-25-2024 Basophils/100 WBC (Bld) 0.7 % 0.0 - 2.0 % [facility] Differential cell count method Nom (Bld) AUTO DIFF % [facility] Eosinophils (Bld) [#/Vol] 0.2 10*3/uL 0.0 - 0.7 10*3/uL [facility] Eosinophils/100 WBC (Bld) 2.6 % 0.0 - 11.0 % [facility] Erythrocyte distribution width (RBC) [Ratio] 14.4 % 11.5 - 14.5 % [facility] Hematocrit (Bld) [Volume fraction] 29.4 % Low 36.0 - 48.0 % [facility] Hemoglobin (Bld) [Mass/Vol] 10.1 g/dL Low [facility] Lymphocytes (Bld) [#/Vol] 1.2 10*3/uL 1.2 - 3.4 10*3/uL [facility] Lymphocytes/100 WBC (Bld) 21.6 % 20.0 - 55.0 % [facility] MCH (RBC) [Entitic mass] 32.5 pg 26.0 - 35.0 PG [facility] MCHC (RBC) [Mass/Vol] 34.3 g/dL [facility] MCV (RBC) [Entitic vol] 94.8 fL [facility] Monocytes (Bld) [#/Vol] 0.6 10*3/uL 0.0 - 0.7 10*3/uL [facility] Monocytes/100 WBC (Bld) 11.3 % High 0.0 - 10.0 % [facility] Neutrophils (Bld) [#/Vol] 3.7 10*3/uL 1.4 - 6.5 10*3/uL [facility] Neutrophils/100 WBC (Bld) 63.8 % 37.0 - 75.0 % [facility] Platelet mean volume (Bld) [Entitic vol] 6.7 fL Low [facility] Platelets (Bld) [#/Vol] 440 10*3/uL High 130 - 400 10*3/uL [facility] RBC (Bld) [#/Vol] 3.10 10*6/uL Low 4.0 - 5.4 10*6/uL [facility] WBC (Bld) [#/Vol] 5.7 10*3/uL 3.6 - 11.0 10*3/uL [facility] No Panel Informationon 01-24 GFR COMMENT Average GFR for 70+ years old = 75. [facility] Interpretation and review of laboratory results Abnormal [facility] ABSOLUTE BASOPHIL COUNT 0.0 10*3/uL 0.0 - 0.2 10*3/uL [facility] Interpretation and review of laboratory results Abnormal [facility] BMP FASTINGon 01-24-2024 Anion gap [Moles/Vol] 2 mmol/L Low 8-16 [facility] Calcium [Mass/Vol] 8.5 mg/dL Normal 8.4-10.2 [facility] Chloride [Moles/Vol] 102 mmol/L Normal 98-107 [facility] Comment on above: Result Comment: Shonda matthews note: Triglyceride levels of 600mg/dL or higher may positively bias chloride results by approximately 2.1 mmol CO2 [Moles/Vol] 31 mmol/L High 22-30 [facility] Creatinine [Mass/Vol] 0.70 mg/dL Normal 0.7-1.2 [facility] EST. GFR, 103 ml/min/1.73sq.m Normal [facility] EST. GFR,Non 85 ml/min/1.73sq.m [facility] GFR Information Average GFR for 70+ years old = 75. Normal [facility] Comment on above: Result Comment: [employer] Supervisor aviva Kidney disease, GFR = <60. Kidney failure, GFR = <15. The GFR estimate is not adjusted for extreme body surface area or acute process, nor has it been validated for women or ethnic groups other than and . Glucose [Mass/Vol] 104 mg/dL High 70-100 [facility] Comment on above: Result Comment: NORMAL <100 mg/dL PREDIABETES 101-126 mg/dL DIABETES 126 mg/dL or higher Potassium [Moles/Vol] 3.5 mmol/L Normal 3.5-5.1 [facility] Sodium [Moles/Vol] 135 mmol/L Low 137-145 [facility] Urea nitrogen [Mass/Vol] 8 mg/dL Normal 7-20 [facility] C DIFFICILE DNAon 01-24-2024 C. DIFF 027 Negative Normal NEGATIVE [facility] Comment on above: Result Comment: Hype rvirulent C. difficile strain 027/NAP1/BI TESTING PERFORMED BY PCR Performed By: #### G IPAN ####[place] [address] TOXIGENIC C. DIFF Negative Normal NEGATIVE [facility] Comment on above: Performed By: #### G IPAN ####Testing performed at [address] [address] C REACTIVE PROTEINon 024 CRP [Mass/Vol] 46.5 mg/L High 0-10 [facility] CBCon 01-24-2024 ABSOLUTE BAS 0.0 10*3/uL Normal 0.0-0.2 [facility] ABSOLUTE EOS 0.1 10*3/uL Normal 0.0-0.7 [facility] ABSOLUTE NEUTROPHIL COUNT 4.2 10*3/uL Normal 1.4-6.5 [facility] Basophils/100 WBC (Bld) 0.7 % Normal 0.0-2.0 [facility] DTYPE AUTO DIFF Normal [facility] Eosinophils/100 WBC (Bld) 2.2 % Normal 0.0-11.0 [facility] Lymphocytes (Bld) [#/Vol] 1.2 10*3/uL Normal 1.2-3.4 [facility] Lymphocytes/100 WBC (Bld) 19.3 % Low 20.0-55.0 [facility] Monocytes (Bld) [#/Vol] 0.7 10*3/uL Normal 0.0-0.7 [facility] Monocytes/100 WBC (Bld) 10.6 % High 0.0-10.0 [facility] Neutrophils/100 WBC (Bld) 67.2 % Normal 37.0-75.0 [facility] Erythrocyte distribution width (RBC) [Ratio] 14.5 % Normal 11.5-14.5 [facility] Hematocrit (Bld) [Volume fraction] 29.3 % Low 36.0-48.0 [facility] Hemoglobin (Bld) [Mass/Vol] 10.1 g/dL Low 12.0-16.0 [facility] MCH (RBC) [Entitic mass] 32.7 pg Normal 26.0-35.0 [facility] MCHC (RBC) [Mass/Vol] 34.4 g/dL Normal 27.0-37.0 [facility] MCV (RBC) [Entitic vol] 95.1 fL Normal 80.0-100.0 [facility] Platelet mean volume (Bld) [Entitic vol] 6.8 fL Low 7.4-11.0 [facility] Platelets (Bld) [#/Vol] 424 10*3/uL High 130-400 [facility] RBC (Bld) [#/Vol] 3.08 10*6/uL Low 4.0-5.4 [facility] WBC (Bld) [#/Vol] 6.2 10*3/uL Normal 3.6-11.0 [facility] GI PANELon 01-24-2024 ADENOVIRUS F 40/41 Not detected Normal NOT DETECTED [facility] Comment on above: Result Comment: Mandi baugh: Nucleic acid may persist in vivo independently of organism viability. Additionally, some organisms may be carried asymptomatically. Detection of target organisms does not imply that the corresponding organisms are infectious or are the causative agent of clinical symptoms. Results must be correlated with clinical history, epidemiological data and other clinical information available. Testing performed at [place] [address] Performed By: #### G IPAN ####[place] [address] ASTROVIRUS Not detected Normal NOT DETECTED [facility] Comment on above: Performed By: #### G IPAN ####[place] [address] CAMPYLOBACTER Not detected Normal NOT DETECTED [facility] Comment on above: Performed By: #### G IPAN ####[place] [address] CRYPTOSPORIDIUM Not detected Normal NOT DETECTED [facility] Comment on above: Performed By: #### G IPAN ####[place] [address] CYCLOSPORA CAYETANENSIS Not detected Normal NOT DETECTED [facility] Comment on above: Performed By: #### G IPAN ####[place] [address] ENTAMOEBA HISTOLYTICA Not detected Normal NOT DETECTED [facility] Comment on above: Performed By: #### G IPAN ####Testing performed at [place] [id number] ENTEROAGGREGATIVE E COLI Not detected Normal NOT DETECTED [facility] Comment on above: Performed By: #### G IPAN ####Testing performed at [address] [address] ENTEROTOXIGENIC E COLI Not detected Normal NOT DETECTED [facility] Comment on above: Performed By: #### G IPAN ####Testing performed at [place] [id number] ENTROPATHOGENIC E COLI Not detected Normal NOT DETECTED [facility] Comment on above: Performed By: #### G IPAN ####[place] [address] GIARDIA LAMBLIA Not detected Normal NOT DETECTED [facility] Comment on above: Performed By: #### G IPAN ####Testing performed at [place] [id number] NOROVIRUS GI/GII Not detected Normal NOT DETECTED [facility] Comment on above: Performed By: #### G IPAN ####Testing performed at [place] [id number] PLESIOMONAS SHIGELLOIDES Not detected Normal NOT DETECTED [facility] Comment on above: Performed By: #### G IPAN ####Testing performed at [address] [address] ROTAVIRUS A Not detected Normal NOT DETECTED [facility] Comment on above: Performed By: #### G IPAN ####Testing performed at [place] [id number] SALMONELLA Not detected Normal NOT DETECTED [facility] Comment on above: Performed By: #### G IPAN ####Testing performed at [place] [id number] SAPOVIRUS Not detected Normal NOT DETECTED [facility] Comment on above: Performed By: #### G IPAN ####Testing performed at [place] [id number] SHIGA-LIKE TOXIN-PRODUCING E COLI Not detected Normal NOT DETECTED [facility] Comment on above: Performed By: #### G IPAN ####[place] [address] SHIGELLA/ENTEROINVASI VE E COLI Not detected Normal NOT DETECTED [facility] Comment on above: Performed By: #### G IPAN ####[place] [address] VIBRIO Not detected Normal NOT DETECTED [facility] Comment on above: Performed By: #### G IPAN ####[place] [address] VIBRIO CHOLERAE Not detected Normal NOT DETECTED [facility] Comment on above: Performed By: #### G IPAN ####[place] [address] YESINIA ENTEROCOLITICA Not detected Normal NOT DETECTED [facility] Comment on above: Performed By: #### G IPAN ####[place] [address] Laboratory - Chemistry and C hemistry - challengeon 01-24-2024 Anion gap [Moles/Vol] 2 mmol/L Low [facility] Calcium [Mass/Vol] 8.5 mg/dL [facility] Chloride [Moles/Vol] 102 mmol/L [facility] CO2 [Moles/Vol] 31 mmol/L High [facility] Creatinine [Mass/Vol] 0.70 mg/dL [facility] CRP [Mass/Vol] 46.5 mg/L High 0 - 10 MG/L [facility] GFR/1.73 sq M.predicted among blacks MDRD (S/P/Bld) [Vol rate/Area] 103 mL/min/{1.73_m2} ml/min/1.73sq .m [facility] GFR/1.73 sq M.predicted among non-blacks MDRD (S/P/Bld) [Vol rate/Area] 85 mL/min/{1.73_m2} ml/min/1.73sq .m [facility] Glucose post fast [Mass/Vol] 104 mg/dL High [facility] Potassium [Moles/Vol] 3.5 mmol/L [facility] Sodium [Moles/Vol] 135 mmol/L Low [facility] Urea nitrogen [Mass/Vol] 8 mg/dL [facility] Laboratory - Hematology and Cell countson 01-24-2024 Basophils/100 WBC (Bld) 0.7 % 0.0 - 2.0 % [facility] Differential cell count method Nom (Bld) AUTO DIFF % [facility] Eosinophils (Bld) [#/Vol] 0.1 10*3/uL 0.0 - 0.7 10*3/uL [facility] Eosinophils/100 WBC (Bld) 2.2 % 0.0 - 11.0 % [facility] Erythrocyte distribution width (RBC) [Ratio] 14.5 % 11.5 - 14.5 % [facility] Hematocrit (Bld) [Volume fraction] 29.3 % Low 36.0 - 48.0 % [facility] Hemoglobin (Bld) [Mass/Vol] 10.1 g/dL Low [facility] Lymphocytes (Bld) [#/Vol] 1.2 10*3/uL 1.2 - 3.4 10*3/uL [facility] Lymphocytes/100 WBC (Bld) 19.3 % Low 20.0 - 55.0 % [facility] MCH (RBC) [Entitic mass] 32.7 pg 26.0 - 35.0 PG [facility] MCHC (RBC) [Mass/Vol] 34.4 g/dL [facility] MCV (RBC) [Entitic vol] 95.1 fL [facility] Monocytes (Bld) [#/Vol] 0.7 10*3/uL 0.0 - 0.7 10*3/uL [facility] Monocytes/100 WBC (Bld) 10.6 % High 0.0 - 10.0 % [facility] Neutrophils (Bld) [#/Vol] 4.2 10*3/uL 1.4 - 6.5 10*3/uL [facility] Neutrophils/100 WBC (Bld) 67.2 % 37.0 - 75.0 % [facility] Platelet mean volume (Bld) [Entitic vol] 6.8 fL Low [facility] Platelets (Bld) [#/Vol] 424 10*3/uL High 130 - 400 10*3/uL [facility] RBC (Bld) [#/Vol] 3.08 10*6/uL Low 4.0 - 5.4 10*6/uL [facility] WBC (Bld) [#/Vol] 6.2 10*3/uL 3.6 - 11.0 10*3/uL [facility] Laboratory - Microbiology an d Antimicrobial susceptibilityon 01-24-2024 Adenovirus 40+41 DNA SMILEY+non-probe Ql (Stl) Not detected NOT DETECTED [facility] Astrovirus subtypes 1-8 RNA SMILEY+non-probe Ql (Stl) Not detected NOT DETECTED [facility] C. cayetanensis DNA SMILEY+probe Ql (Unsp spec) Not detected NOT DETECTED [facility] C. coli+jejuni+upsaliens is DNA SMILEY+non-probe Ql (Stl) Not detected NOT DETECTED [facility] Cryptosporidium sp DNA SMILEY+probe Ql (Unsp spec) Not detected NOT DETECTED [facility] E. coli enteroaggregative Kandis plasmid aggR+aatA genes SMILEY+non-probe Ql (Stl) Not detected NOT DETECTED [facility] E. histolytica DNA SMILEY+probe Ql (Unsp spec) Not detected NOT DETECTED [facility] G. lamblia DNA SMILEY+non-probe Ql (Stl) Not detected NOT DETECTED [facility] P. shigelloides DNA SMILEY+non-probe Ql (Stl) Not detected NOT DETECTED [facility] Rotavirus A RNA SMILEY+non-probe Ql (Stl) Not detected NOT DETECTED [facility] S. enterica+bongori DNA SMILEY+non-probe Ql (Stl) Not detected NOT DETECTED [facility] V. cholerae DNA SMILEY+non-probe Ql (Stl) Not detected NOT DETECTED [facility] V. cholerae+parahaemolyt icus+vulnificus DNA SMIELY+non-probe Ql (Stl) Not detected NOT DETECTED [facility] Y. enterocolitica DNA SMILEY+non-probe Ql (Stl) Not detected NOT DETECTED [facility] No Panel Informationon 01-23 E COLI (EIEC) Not detected NOT DETECTED [facility] E COLI (EPEC) Not detected NOT DETECTED [facility] E COLI (ETEC) Not detected NOT DETECTED [facility] NOROVIRUS RNA Not detected NOT DETECTED [facility] SAPOVIRUS Not detected NOT DETECTED [facility] SHIGA TOXIN E. COLI Not detected NOT DETECTED [facility] C. Diff 027 Negative NEGATIVE [facility] C.DIFFICILE TOXIN,PCR Negative NEGATIVE [facility] GFR COMMENT Average GFR for 70+ years old = 75. [facility] Interpretation and review of laboratory results Abnormal [facility] ABSOLUTE BASOPHIL COUNT 0.0 10*3/uL 0.0 - 0.2 10*3/uL [facility] Interpretation and review of laboratory results Abnormal [facility] BMP FASTINGon 01-23-2024 Anion gap [Moles/Vol] 1 mmol/L Low 8-16 [facility] Calcium [Mass/Vol] 8.5 mg/dL Normal 8.4-10.2 [facility] Chloride [Moles/Vol] 101 mmol/L Normal 98-107 [facility] Comment on above: Result Comment: Plebowen matthews note: Triglyceride levels of 600mg/dL or higher may positively bias chloride results by approximately 2.1 mmol CO2 [Moles/Vol] 33 mmol/L High 22-30 [facility] Creatinine [Mass/Vol] 0.60 mg/dL Low 0.7-1.2 [facility] EST. GFR, 123 ml/min/1.73sq.m [facility] EST. GFR,Non 102 ml/min/1.73sq.m [facility] GFR Information Average GFR for 70+ years old = 75. Normal [facility] Comment on above: Result Comment: Incendi[employer] Supervisor aviva Kidney disease, GFR = <60. Kidney failure, GFR = <15. The GFR estimate is not adjusted for extreme body surface area or acute process, nor has it been validated for women or ethnic groups other than and . Glucose [Mass/Vol] 96 mg/dL Normal 70-100 [facility] Comment on above: Result Comment: NORMAL <100 mg/dL PREDIABETES 101-126 mg/dL DIABETES 126 mg/dL or higher Potassium [Moles/Vol] 3.7 mmol/L Normal 3.5-5.1 [facility] Sodium [Moles/Vol] 135 mmol/L Low 137-145 [facility] Urea nitrogen [Mass/Vol] 8 mg/dL Normal 7-20 [facility] C REACTIVE PROTEINon 024 CRP [Mass/Vol] 42.0 mg/L High 0-10 [facility] CBCon 01-23-2024 ABSOLUTE BAS 0.0 10*3/uL Normal 0.0-0.2 [facility] ABSOLUTE EOS 0.1 10*3/uL Normal 0.0-0.7 [facility] ABSOLUTE NEUTROPHIL COUNT 4.0 10*3/uL Normal 1.4-6.5 [facility] Basophils/100 WBC (Bld) 0.8 % Normal 0.0-2.0 [facility] DTYPE AUTO DIFF Normal [facility] Eosinophils/100 WBC (Bld) 2.4 % Normal 0.0-11.0 [facility] Lymphocytes (Bld) [#/Vol] 1.2 10*3/uL Normal 1.2-3.4 [facility] Lymphocytes/100 WBC (Bld) 19.6 % Low 20.0-55.0 [facility] Monocytes (Bld) [#/Vol] 0.6 10*3/uL Normal 0.0-0.7 [facility] Monocytes/100 WBC (Bld) 9.8 % Normal 0.0-10.0 [facility] Neutrophils/100 WBC (Bld) 67.4 % Normal 37.0-75.0 [facility] Erythrocyte distribution width (RBC) [Ratio] 13.9 % Normal 11.5-14.5 [facility] Hematocrit (Bld) [Volume fraction] 29.1 % Low 36.0-48.0 [facility] Hemoglobin (Bld) [Mass/Vol] 10.0 g/dL Low 12.0-16.0 [facility] MCH (RBC) [Entitic mass] 32.2 pg Normal 26.0-35.0 [facility] MCHC (RBC) [Mass/Vol] 34.3 g/dL Normal 27.0-37.0 [facility] MCV (RBC) [Entitic vol] 94.0 fL Normal 80.0-100.0 [facility] Platelet mean volume (Bld) [Entitic vol] 6.7 fL Low 7.4-11.0 [facility] Platelets (Bld) [#/Vol] 425 10*3/uL High 130-400 [facility] RBC (Bld) [#/Vol] 3.10 10*6/uL Low 4.0-5.4 [facility] WBC (Bld) [#/Vol] 6.0 10*3/uL Normal 3.6-11.0 [facility] LIPASE,SERUMon 01-23-2024 LIPASE,SERUM 32 U/L Normal 23-300 [facility] LIVER PANELon 01-23-2024 Albumin [Mass/Vol] 2.6 g/dL Low 3.5-5.0 [facility] ALP [Catalytic activity/Vol] 99 U/L Normal 38-126 [facility] ALT [Catalytic activity/Vol] 10 U/L Normal <35 [facility] AST [Catalytic activity/Vol] 25 U/L Normal 14-36 [facility] Bilirubin [Mass/Vol] 0.3 mg/dL Normal 0.2-1.3 [facility] Bilirubin.indirect [Mass/Vol] 0.3 mg/dL Normal 0-0.4 [facility] Protein [Mass/Vol] 5.6 g/dL Low 6.3-8.2 [facility] Laboratory - Chemistry and C hemistry - challengeon 01-23-2024 Albumin [Mass/Vol] 2.6 g/dL Low [facility] ALP [Catalytic activity/Vol] 99 U/L [facility] ALT [Catalytic activity/Vol] 10 U/L NINF [facility] Anion gap [Moles/Vol] 1 mmol/L Low [facility] AST [Catalytic activity/Vol] 25 U/L [facility] Bilirubin [Mass/Vol] 0.3 mg/dL [facility] Bilirubin.direct [Mass/Vol] 0.3 mg/dL [facility] Calcium [Mass/Vol] 8.5 mg/dL [facility] Chloride [Moles/Vol] 101 mmol/L [facility] CO2 [Moles/Vol] 33 mmol/L High [facility] Creatinine [Mass/Vol] 0.60 mg/dL Low [facility] CRP [Mass/Vol] 42.0 mg/L High 0 - 10 MG/L [facility] GFR/1.73 sq M.predicted among blacks MDRD (S/P/Bld) [Vol rate/Area] 123 mL/min/{1.73_m2} ml/min/1.73sq .m [facility] GFR/1.73 sq M.predicted among non-blacks MDRD (S/P/Bld) [Vol rate/Area] 102 mL/min/{1.73_m2} ml/min/1.73sq .m [facility] Glucose post fast [Mass/Vol] 96 mg/dL [facility] Lipase [Catalytic activity/Vol] 32 U/L 23 - 300 U/L [facility] Potassium [Moles/Vol] 3.7 mmol/L [facility] Protein [Mass/Vol] 5.6 g/dL Low [facility] Sodium [Moles/Vol] 135 mmol/L Low [facility] Urea nitrogen [Mass/Vol] 8 mg/dL [facility] Laboratory - Hematology and Cell countson 01-23-2024 Basophils/100 WBC (Bld) 0.8 % 0.0 - 2.0 % [facility] Differential cell count method Nom (Bld) AUTO DIFF % [facility] Eosinophils (Bld) [#/Vol] 0.1 10*3/uL 0.0 - 0.7 10*3/uL [facility] Eosinophils/100 WBC (Bld) 2.4 % 0.0 - 11.0 % [facility] Erythrocyte distribution width (RBC) [Ratio] 13.9 % 11.5 - 14.5 % [facility] Hematocrit (Bld) [Volume fraction] 29.1 % Low 36.0 - 48.0 % [facility] Hemoglobin (Bld) [Mass/Vol] 10.0 g/dL Low [facility] Lymphocytes (Bld) [#/Vol] 1.2 10*3/uL 1.2 - 3.4 10*3/uL [facility] Lymphocytes/100 WBC (Bld) 19.6 % Low 20.0 - 55.0 % [facility] MCH (RBC) [Entitic mass] 32.2 pg 26.0 - 35.0 PG [facility] MCHC (RBC) [Mass/Vol] 34.3 g/dL [facility] MCV (RBC) [Entitic vol] 94.0 fL [facility] Monocytes (Bld) [#/Vol] 0.6 10*3/uL 0.0 - 0.7 10*3/uL [facility] Monocytes/100 WBC (Bld) 9.8 % 0.0 - 10.0 % [facility] Neutrophils (Bld) [#/Vol] 4.0 10*3/uL 1.4 - 6.5 10*3/uL [facility] Neutrophils/100 WBC (Bld) 67.4 % 37.0 - 75.0 % [facility] Platelet mean volume (Bld) [Entitic vol] 6.7 fL Low [facility] Platelets (Bld) [#/Vol] 425 10*3/uL High 130 - 400 10*3/uL [facility] RBC (Bld) [#/Vol] 3.10 10*6/uL Low 4.0 - 5.4 10*6/uL [facility] WBC (Bld) [#/Vol] 6.0 10*3/uL 3.6 - 11.0 10*3/uL [facility] Laboratory - Microbiology an d Antimicrobial susceptibilityon 01-23-2024 Bacteria identified Cx Nom (Unsp spec) NO PATHOGENS ISOLATED [facility] Laboratory - Miscellaneous t estson 01-23-2024 Service comment (Unsp spec) [Interp] 01/23/2024 [facility] Laboratory - Urinalysison Leukocyte esterase+Nitrite Test strip Ql (U) Positive [facility] No Panel Informationon 01-22 SPECIMEN DESCRIPTION URINE - OTHER A [facility] GFR COMMENT Average GFR for 70+ years old = 75. [facility] Interpretation and review of laboratory results Abnormal [facility] ABSOLUTE BASOPHIL COUNT 0.0 10*3/uL 0.0 - 0.2 10*3/uL [facility] Interpretation and review of laboratory results Abnormal [facility] BMP FASTINGon 01-22-2024 Anion gap [Moles/Vol] 3 mmol/L Low 8-16 [facility] Comment on above: Performed By: #### F EPRO ####Testing performed at [address] [address] Calcium [Mass/Vol] 8.8 mg/dL Normal 8.4-10.2 [facility] Comment on above: Performed By: #### F EPRO ####Testing performed at [address] [address] Chloride [Moles/Vol] 101 mmol/L Normal 98-107 [facility] Comment on above: Result Comment: Shonda matthews note: Triglyceride levels of 600mg/dL or higher may positively bias chloride results by approximately 2.1 mmol Performed By: #### F EPRO ####Testing performed at [address] [address] CO2 [Moles/Vol] 33 mmol/L High 22-30 [facility] Comment on above: Performed By: #### F EPRO ####Testing performed at [address] [address] Creatinine [Mass/Vol] 0.60 mg/dL Low 0.7-1.2 [facility] Comment on above: Performed By: #### F EPRO ####Testing performed at [address] [address] EST. GFR, 123 ml/min/1.73sq.m Normal [facility] Comment on above: Performed By: #### F EPRO ####Testing performed at [address] [address] EST. GFR,Non 102 ml/min/1.73sq.m Normal [facility] Comment on above: Performed By: #### F EPRO ####Testing performed at [address] [address] GFR Information Average GFR for 70+ years old = 75. Normal [facility] Comment on above: Result Comment: [employer] Supervisor aviva Kidney disease, GFR = <60. Kidney failure, GFR = <15. The GFR estimate is not adjusted for extreme body surface area or acute process, nor has it been validated for women or ethnic groups other than and . Performed By: #### F EPRO ####Testing performed at [address] [address] Glucose [Mass/Vol] 88 mg/dL Normal 70-100 [facility] Comment on above: Result Comment: NORMAL <100 mg/dL PREDIABETES 101-126 mg/dL DIABETES 126 mg/dL or higher Performed By: #### F EPRO ####Testing performed at [address] [address] Potassium [Moles/Vol] 3.7 mmol/L Normal 3.5-5.1 [facility] Comment on above: Performed By: #### F EPRO ####Testing performed at [address] [address] Sodium [Moles/Vol] 137 mmol/L Normal 137-145 [facility] Comment on above: Performed By: #### F EPRO ####Testing performed at [address] [address] Urea nitrogen [Mass/Vol] 8 mg/dL Normal 7-20 [facility] Comment on above: Performed By: #### F EPRO ####Testing performed at [address] [place] [address] C REACTIVE PROTEINon 06 024 CRP [Mass/Vol] 58.3 mg/L High 0-10 [facility] Comment on above: Performed By: #### F EPRO ####Testing performed at [address] [address] CBCon 01-22-2024 ABSOLUTE BAS 0.0 10*3/uL Normal 0.0-0.2 [facility] Comment on above: Performed By: #### F EPRO ####Testing performed at [address] [address] ABSOLUTE EOS 0.2 10*3/uL Normal 0.0-0.7 [facility] Comment on above: Performed By: #### F EPRO ####Testing performed at [address] [address] ABSOLUTE NEUTROPHIL COUNT 3.8 10*3/uL Normal 1.4-6.5 [facility] Comment on above: Performed By: #### F EPRO ####Testing performed at [address] [address] Basophils/100 WBC (Bld) 0.9 % Normal 0.0-2.0 [facility] Comment on above: Performed By: #### F EPRO ####Testing performed at [address] [place] [address] DTYPE AUTO DIFF Normal [facility] Comment on above: Performed By: #### F EPRO ####Testing performed at [address] [address] Eosinophils/100 WBC (Bld) 3.2 % Normal 0.0-11.0 [facility] Comment on above: Performed By: #### F EPRO ####Testing performed at [address] [address] Lymphocytes (Bld) [#/Vol] 1.1 10*3/uL Low 1.2-3.4 [facility] Comment on above: Performed By: #### F EPRO ####Testing performed at [address] [address] Lymphocytes/100 WBC (Bld) 19.3 % Low 20.0-55.0 [facility] Comment on above: Performed By: #### F EPRO ####Testing performed at [address] [address] Monocytes (Bld) [#/Vol] 0.5 10*3/uL Normal 0.0-0.7 [facility] Comment on above: Performed By: #### F EPRO ####Testing performed at [address] [address] Monocytes/100 WBC (Bld) 8.5 % Normal 0.0-10.0 [facility] Comment on above: Performed By: #### F EPRO ####Testing performed at [address] [address] Neutrophils/100 WBC (Bld) 68.1 % Normal 37.0-75.0 [facility] Comment on above: Performed By: #### F EPRO ####Testing performed at [address] [place] [address] Erythrocyte distribution width (RBC) [Ratio] 14.1 % Normal 11.5-14.5 [facility] Comment on above: Performed By: #### F EPRO ####Testing performed at [address] [address] Hematocrit (Bld) [Volume fraction] 31.8 % Low 36.0-48.0 [facility] Comment on above: Performed By: #### F EPRO ####Testing performed at [address] [address] Hemoglobin (Bld) [Mass/Vol] 10.7 g/dL Low 12.0-16.0 [facility] Comment on above: Performed By: #### F EPRO ####Testing performed at [address] [address] MCH (RBC) [Entitic mass] 31.7 pg Normal 26.0-35.0 [facility] Comment on above: Performed By: #### F EPRO ####Testing performed at [address] [address] MCHC (RBC) [Mass/Vol] 33.6 g/dL Normal 27.0-37.0 [facility] Comment on above: Performed By: #### F EPRO ####Testing performed at [address] [address] MCV (RBC) [Entitic vol] 94.6 fL Normal 80.0-100.0 [facility] Comment on above: Performed By: #### F EPRO ####Testing performed at [address] [address] Platelet mean volume (Bld) [Entitic vol] 7.0 fL Low 7.4-11.0 [facility] Comment on above: Performed By: #### F EPRO ####Testing performed at [address] [address] Platelets (Bld) [#/Vol] 407 10*3/uL High 130-400 [facility] Comment on above: Performed By: #### F EPRO ####Testing performed at [address] [address] RBC (Bld) [#/Vol] 3.36 10*6/uL Low 4.0-5.4 [facility] Comment on above: Performed By: #### F EPRO ####Testing performed at [address] [address] WBC (Bld) [#/Vol] 5.6 10*3/uL Normal 3.6-11.0 [facility] Comment on above: Performed By: #### F EPRO ####Testing performed at [address] [address] ESRon 01-22-2024 ESR (Bld) [Velocity] 71 mm/h High 0-30 [facility] Comment on above: Performed By: #### F EPRO ####Testing performed at [address] [address] IRON PROFILEon 01-22-2024 IRON BINDING 164 UG/DL Low 250-450 [facility] Comment on above: Performed By: #### F EPRO ####Testing performed at [address] [address] TRANSFERRIN SATURATION,CALCULATED 23 % Normal [facility] Comment on above: Performed By: #### F EPRO ####Testing performed at [address] [address] Iron [Mass/Vol] 37 ug/dL Normal 37-170 [facility] Comment on above: Performed By: #### F EPRO ####Testing performed at [address] [address] Laboratory - Chemistry and C hemistry - challengeon 01-22-2024 Iron [Mass/Vol] 37 ug/dL [facility] Iron binding capacity [Mass/Vol] 164 Low [facility] Iron saturation [Mass fraction] 23 % [facility] Anion gap [Moles/Vol] 3 mmol/L Low [facility] Calcium [Mass/Vol] 8.8 mg/dL [facility] Chloride [Moles/Vol] 101 mmol/L [facility] CO2 [Moles/Vol] 33 mmol/L High [facility] Creatinine [Mass/Vol] 0.60 mg/dL Low [facility] CRP [Mass/Vol] 58.3 mg/L High 0 - 10 MG/L [facility] GFR/1.73 sq M.predicted among blacks MDRD (S/P/Bld) [Vol rate/Area] 123 mL/min/{1.73_m2} ml/min/1.73sq .m [facility] GFR/1.73 sq M.predicted among non-blacks MDRD (S/P/Bld) [Vol rate/Area] 102 mL/min/{1.73_m2} ml/min/1.73sq .m [facility] Glucose post fast [Mass/Vol] 88 mg/dL [facility] Potassium [Moles/Vol] 3.7 mmol/L [facility] Sodium [Moles/Vol] 137 mmol/L [facility] Urea nitrogen [Mass/Vol] 8 mg/dL [facility] Laboratory - Hematology and Cell countson 01-22-2024 ESR (Bld) [Velocity] 71 mm/h High [facility] Basophils/100 WBC (Bld) 0.9 % 0.0 - 2.0 % [facility] Differential cell count method Nom (Bld) AUTO DIFF % [facility] Eosinophils (Bld) [#/Vol] 0.2 10*3/uL 0.0 - 0.7 10*3/uL [facility] Eosinophils/100 WBC (Bld) 3.2 % 0.0 - 11.0 % [facility] Erythrocyte distribution width (RBC) [Ratio] 14.1 % 11.5 - 14.5 % [facility] Hematocrit (Bld) [Volume fraction] 31.8 % Low 36.0 - 48.0 % [facility] Hemoglobin (Bld) [Mass/Vol] 10.7 g/dL Low [facility] Lymphocytes (Bld) [#/Vol] 1.1 10*3/uL Low 1.2 - 3.4 10*3/uL [facility] Lymphocytes/100 WBC (Bld) 19.3 % Low 20.0 - 55.0 % [facility] MCH (RBC) [Entitic mass] 31.7 pg 26.0 - 35.0 PG [facility] MCHC (RBC) [Mass/Vol] 33.6 g/dL [facility] MCV (RBC) [Entitic vol] 94.6 fL [facility] Monocytes (Bld) [#/Vol] 0.5 10*3/uL 0.0 - 0.7 10*3/uL [facility] Monocytes/100 WBC (Bld) 8.5 % 0.0 - 10.0 % [facility] Neutrophils (Bld) [#/Vol] 3.8 10*3/uL 1.4 - 6.5 10*3/uL [facility] Neutrophils/100 WBC (Bld) 68.1 % 37.0 - 75.0 % [facility] Platelet mean volume (Bld) [Entitic vol] 7.0 fL Low [facility] Platelets (Bld) [#/Vol] 407 10*3/uL High 130 - 400 10*3/uL [facility] RBC (Bld) [#/Vol] 3.36 10*6/uL Low 4.0 - 5.4 10*6/uL [facility] WBC (Bld) [#/Vol] 5.6 10*3/uL 3.6 - 11.0 10*3/uL [facility] No Panel Informationon 01-21 Interpretation and review of laboratory results Abnormal [facility] Interpretation and review of laboratory results Abnormal [facility] GFR COMMENT Average GFR for 70+ years old = 75. [facility] Interpretation and review of laboratory results Abnormal [facility] ABSOLUTE BASOPHIL COUNT 0.0 10*3/uL 0.0 - 0.2 10*3/uL [facility] Interpretation and review of laboratory results Abnormal [facility] BMP FASTINGon 01-21-2024 Anion gap [Moles/Vol] 3 mmol/L Low 8-16 [facility] Calcium [Mass/Vol] 8.6 mg/dL Normal 8.4-10.2 [facility] Chloride [Moles/Vol] 102 mmol/L Normal 98-107 [facility] Comment on above: Result Comment: Shonda matthews note: Triglyceride levels of 600mg/dL or higher may positively bias chloride results by approximately 2.1 mmol CO2 [Moles/Vol] 32 mmol/L High 22-30 [facility] Creatinine [Mass/Vol] 0.60 mg/dL Low 0.7-1.2 [facility] EST. GFR, 123 ml/min/1.73sq.m [facility] EST. GFR,Non 102 ml/min/1.73sq.m [facility] GFR Information Average GFR for 70+ years old = 75. Normal [facility] Comment on above: Result Comment: [employer] Supervisor aviva Kidney disease, GFR = <60. Kidney failure, GFR = <15. The GFR estimate is not adjusted for extreme body surface area or acute process, nor has it been validated for women or ethnic groups other than and . Glucose [Mass/Vol] 100 mg/dL Normal 70-100 [facility] Comment on above: Result Comment: NORMAL <100 mg/dL PREDIABETES 101-126 mg/dL DIABETES 126 mg/dL or higher Potassium [Moles/Vol] 3.6 mmol/L Normal 3.5-5.1 [facility] Sodium [Moles/Vol] 137 mmol/L Normal 137-145 [facility] Urea nitrogen [Mass/Vol] 8 mg/dL Normal 7-20 [facility] CBCon 01-21-2024 ABSOLUTE BAS 0.0 10*3/uL Normal 0.0-0.2 [facility] ABSOLUTE EOS 0.2 10*3/uL Normal 0.0-0.7 [facility] ABSOLUTE NEUTROPHIL COUNT 3.9 10*3/uL Normal 1.4-6.5 [facility] Basophils/100 WBC (Bld) 0.6 % Normal 0.0-2.0 [facility] DTYPE AUTO DIFF Normal [facility] Eosinophils/100 WBC (Bld) 3.6 % Normal 0.0-11.0 [facility] Lymphocytes (Bld) [#/Vol] 1.2 10*3/uL Normal 1.2-3.4 [facility] Lymphocytes/100 WBC (Bld) 19.7 % Low 20.0-55.0 [facility] Monocytes (Bld) [#/Vol] 0.6 10*3/uL Normal 0.0-0.7 [facility] Monocytes/100 WBC (Bld) 9.9 % Normal 0.0-10.0 [facility] Neutrophils/100 WBC (Bld) 66.2 % Normal 37.0-75.0 [facility] Erythrocyte distribution width (RBC) [Ratio] 14.1 % Normal 11.5-14.5 [facility] Hematocrit (Bld) [Volume fraction] 27.7 % Low 36.0-48.0 [facility] Hemoglobin (Bld) [Mass/Vol] 9.5 g/dL Low 12.0-16.0 [facility] MCH (RBC) [Entitic mass] 32.6 pg Normal 26.0-35.0 [facility] MCHC (RBC) [Mass/Vol] 34.3 g/dL Normal 27.0-37.0 [facility] MCV (RBC) [Entitic vol] 95.0 fL Normal 80.0-100.0 [facility] Platelet mean volume (Bld) [Entitic vol] 6.9 fL Low 7.4-11.0 [facility] Platelets (Bld) [#/Vol] 370 10*3/uL Normal 130-400 [facility] RBC (Bld) [#/Vol] 2.91 10*6/uL Low 4.0-5.4 [facility] WBC (Bld) [#/Vol] 5.9 10*3/uL Normal 3.6-11.0 [facility] Laboratory - Chemistry and C hemistry - challengeon 01-21-2024 Anion gap [Moles/Vol] 3 mmol/L Low [facility] Calcium [Mass/Vol] 8.6 mg/dL [facility] Chloride [Moles/Vol] 102 mmol/L [facility] CO2 [Moles/Vol] 32 mmol/L High [facility] Creatinine [Mass/Vol] 0.60 mg/dL Low [facility] GFR/1.73 sq M.predicted among blacks MDRD (S/P/Bld) [Vol rate/Area] 123 mL/min/{1.73_m2} ml/min/1.73sq .m [facility] GFR/1.73 sq M.predicted among non-blacks MDRD (S/P/Bld) [Vol rate/Area] 102 mL/min/{1.73_m2} ml/min/1.73sq .m [facility] Glucose post fast [Mass/Vol] 100 mg/dL [facility] Potassium [Moles/Vol] 3.6 mmol/L [facility] Sodium [Moles/Vol] 137 mmol/L [facility] Urea nitrogen [Mass/Vol] 8 mg/dL [facility] Laboratory - Hematology and Cell countson 01-21-2024 Basophils/100 WBC (Bld) 0.6 % 0.0 - 2.0 % [facility] Differential cell count method Nom (Bld) AUTO DIFF % [facility] Eosinophils (Bld) [#/Vol] 0.2 10*3/uL 0.0 - 0.7 10*3/uL [facility] Eosinophils/100 WBC (Bld) 3.6 % 0.0 - 11.0 % [facility] Erythrocyte distribution width (RBC) [Ratio] 14.1 % 11.5 - 14.5 % [facility] Hematocrit (Bld) [Volume fraction] 27.7 % Low 36.0 - 48.0 % [facility] Hemoglobin (Bld) [Mass/Vol] 9.5 g/dL Low [facility] Lymphocytes (Bld) [#/Vol] 1.2 10*3/uL 1.2 - 3.4 10*3/uL [facility] Lymphocytes/100 WBC (Bld) 19.7 % Low 20.0 - 55.0 % [facility] MCH (RBC) [Entitic mass] 32.6 pg 26.0 - 35.0 PG [facility] MCHC (RBC) [Mass/Vol] 34.3 g/dL [facility] MCV (RBC) [Entitic vol] 95.0 fL [facility] Monocytes (Bld) [#/Vol] 0.6 10*3/uL 0.0 - 0.7 10*3/uL [facility] Monocytes/100 WBC (Bld) 9.9 % 0.0 - 10.0 % [facility] Neutrophils (Bld) [#/Vol] 3.9 10*3/uL 1.4 - 6.5 10*3/uL [facility] Neutrophils/100 WBC (Bld) 66.2 % 37.0 - 75.0 % [facility] Platelet mean volume (Bld) [Entitic vol] 6.9 fL Low [facility] Platelets (Bld) [#/Vol] 370 10*3/uL 130 - 400 10*3/uL [facility] RBC (Bld) [#/Vol] 2.91 10*6/uL Low 4.0 - 5.4 10*6/uL [facility] WBC (Bld) [#/Vol] 5.9 10*3/uL 3.6 - 11.0 10*3/uL [facility] Laboratory - Microbiology an d Antimicrobial susceptibilityon 01-21-2024 MRSA isol Org specific cx Ql (Nose) Negative NEGATIVE [facility] Laboratory - Urinalysison Bacteria LM.HPF (Urine sed) [#/Area] TRACE Abnormal NEGATIVE [facility] Casts LM.LPF (Urine sed) [#/Area] NONE NONE /LPF [facility] Crystals LM Nom (Urine sed) NONE NONE [facility] Epithelial cells LM Ql (Urine sed) 1 TO 5 /HPF [facility] Mucus Ql (Urine sed) Negative NEGATIVE [facility] RBC LM.HPF (Urine sed) [#/Area] 1 TO 5 NEGATIVE /HPF [facility] Urine sediment comments LM Girish (Urine sed) REFLEX CULTURE PER ESTABLISHED CRITERIA. [facility] WBC LM.HPF (Urine sed) [#/Area] Negative NEGATIVE /HPF [facility] MRSA SCREENon 01-21-2024 MRSA DNA SMILEY+probe Ql (Unsp spec) Negative Normal NEGATIVE [facility] STAPH AUREUS SCREEN Negative Normal NEGATIVE [facility] Comment on above: Result Comment: TEST ING PERFORMED BY PCR No Panel Informationon 01-20 Interpretation and review of laboratory results Abnormal [facility] STAPHYOCOCCUS AUREUS BY PCR Negative NEGATIVE [facility] GFR COMMENT Average GFR for 70+ years old = 75. [facility] Interpretation and review of laboratory results Abnormal [facility] ABSOLUTE BASOPHIL COUNT 0.0 10*3/uL 0.0 - 0.2 10*3/uL [facility] Interpretation and review of laboratory results Abnormal [facility] URINE CULTUREon 01-21-2024 Bacteria identified Cx Nom (U) SPECIMEN DESCRIPTION URINE - OTHER UA DIPSTICK LEUKOCYTE POSITIVE * Result Note: NITRITE NEGATIVE * CULTURE NO PATHOGENS ISOLATED * Result Note: Testing performed at [place] [address] * REPORT STATUS 01/23/2024 * Result Note: FINAL * Normal [facility] Comment on above: Performed By: #### A URNC #### Testing performed at [place] [id number] [place] [address] Testing performed at [facility] [address] [place] [address] URINE MICROSCOPICon 01-21-20 24 BACTERIA TRACE Abnormal NEGATIVE [facility] CASTS NONE Normal NONE [facility] CRYSTAL NONE Normal NONE [facility] Epithelial cells LM Ql (Urine sed) 1 TO 5 Normal [facility] Mucus Ql (Urine sed) Negative Normal NEGATIVE [facility] URINE COMMENT REFLEX CULTURE PER ESTABLISHED CRITERIA. Normal [facility] URINE RBC'S 1 TO 5 Normal NEGATIVE [facility] URINE WBC'S Negative Normal NEGATIVE [facility] 25 0H VITAMIN D LEVELon 25 0H VITAMIN D LEVEL 16.9 NG/ML Normal [facility] Comment on above: Result Comment: DEFICIENT <20 NG/ML INSUFFICIENT 20-<30 NG/ML SUFFICIENT 30-100 NG/ML POTENTIAL TOXICITY >100 NG/ML BMP FASTINGon 01-20-2024 Anion gap [Moles/Vol] 2 mmol/L Low 8-16 [facility] Comment on above: Performed By: #### A CBC, FEPRO ####Testing performed at [address] [address] Calcium [Mass/Vol] 8.3 mg/dL Low 8.4-10.2 [facility] Comment on above: Performed By: #### A CBC, FEPRO ####Testing performed at [address] [address] Chloride [Moles/Vol] 103 mmol/L Normal 98-107 [facility] Comment on above: Result Comment: Shonda matthews note: Triglyceride levels of 600mg/dL or higher may positively bias chloride results by approximately 2.1 mmol Performed By: #### A CBC, FEPRO ####Testing performed at [address] [address] CO2 [Moles/Vol] 31 mmol/L High 22-30 [facility] Comment on above: Performed By: #### A CBC, FEPRO ####Testing performed at [address] [address] Creatinine [Mass/Vol] 0.60 mg/dL Low 0.7-1.2 [facility] Comment on above: Performed By: #### A CBC, FEPRO ####Testing performed at [address] [address] EST. GFR, 123 ml/min/1.73sq.m [facility] Comment on above: Performed By: #### A CBC, FEPRO ####Testing performed at [address] [address] EST. GFR,Non 102 ml/min/1.73sq.m [facility] Comment on above: Performed By: #### A CBC, FEPRO ####Testing performed at [address] [address] GFR Information Average GFR for 70+ years old = 75. Normal [facility] Comment on above: Result Comment: [employer] Supervisor aviva Kidney disease, GFR = <60. Kidney failure, GFR = <15. The GFR estimate is not adjusted for extreme body surface area or acute process, nor has it been validated for women or ethnic groups other than and . Performed By: #### A CBC, FEPRO ####Testing performed at [address] [address] Glucose [Mass/Vol] 91 mg/dL Normal 70-100 [facility] Comment on above: Result Comment: NORMAL <100 mg/dL PREDIABETES 101-126 mg/dL DIABETES 126 mg/dL or higher Performed By: #### A CBC, FEPRO ####Testing performed at [address] [address] Potassium [Moles/Vol] 3.8 mmol/L Normal 3.5-5.1 [facility] Comment on above: Performed By: #### A CBC, FEPRO ####[place] [address] Sodium [Moles/Vol] 136 mmol/L Low 137-145 [facility] Comment on above: Performed By: #### A CBC, FEPRO ####Testing performed at [place] [id number] Urea nitrogen [Mass/Vol] 9 mg/dL Normal 7-20 [facility] Comment on above: Performed By: #### A CBC, FEPRO ####[place] [address] CBCon 01-20-2024 ABSOLUTE BAS 0.0 10*3/uL Normal 0.0-0.2 [facility] Comment on above: Performed By: #### A CBC, FEPRO ####Testing performed at [place] [id number] ABSOLUTE EOS 0.2 10*3/uL Normal 0.0-0.7 [facility] Comment on above: Performed By: #### A CBC, FEPRO ####Testing performed at [place] [id number] ABSOLUTE NEUTROPHIL COUNT 4.1 10*3/uL Normal 1.4-6.5 [facility] Comment on above: Performed By: #### A CBC, FEPRO ####Testing performed at [place] [id number] Basophils/100 WBC (Bld) 0.8 % Normal 0.0-2.0 [facility] Comment on above: Performed By: #### A CBC, FEPRO ####Testing performed at [place] [id number] DTYPE AUTO DIFF Normal [facility] Comment on above: Performed By: #### A CBC, FEPRO ####Testing performed at [place] [id number] Eosinophils/100 WBC (Bld) 3.0 % Normal 0.0-11.0 [facility] Comment on above: Performed By: #### A CBC, FEPRO ####Testing performed at [address] [address] Lymphocytes (Bld) [#/Vol] 1.2 10*3/uL Normal 1.2-3.4 [facility] Comment on above: Performed By: #### A CBC, FEPRO ####Testing performed at [address] [address] Lymphocytes/100 WBC (Bld) 19.6 % Low 20.0-55.0 [facility] Comment on above: Performed By: #### A CBC, FEPRO ####Testing performed at [address] [address] Monocytes (Bld) [#/Vol] 0.7 10*3/uL Normal 0.0-0.7 [facility] Comment on above: Performed By: #### A CBC, FEPRO ####Testing performed at [address] [address] Monocytes/100 WBC (Bld) 10.9 % High 0.0-10.0 [facility] Comment on above: Performed By: #### A CBC, FEPRO ####Testing performed at [address] [address] Neutrophils/100 WBC (Bld) 65.7 % Normal 37.0-75.0 [facility] Comment on above: Performed By: #### A CBC, FEPRO ####Testing performed at [address] [address] Erythrocyte distribution width (RBC) [Ratio] 14.0 % Normal 11.5-14.5 [facility] Comment on above: Performed By: #### A CBC, FEPRO ####Testing performed at [address] [place] [address] Hematocrit (Bld) [Volume fraction] 27.6 % Low 36.0-48.0 [facility] Comment on above: Performed By: #### A CBC, FEPRO ####Testing performed at [address] [address] Hemoglobin (Bld) [Mass/Vol] 9.4 g/dL Low 12.0-16.0 [facility] Comment on above: Performed By: #### A CBC, FEPRO ####Testing performed at [address] [address] MCH (RBC) [Entitic mass] 32.3 pg Normal 26.0-35.0 [facility] Comment on above: Performed By: #### A CBC, FEPRO ####Testing performed at [address] [address] MCHC (RBC) [Mass/Vol] 34.0 g/dL Normal 27.0-37.0 [facility] Comment on above: Performed By: #### A CBC, FEPRO ####Testing performed at [address] [address] MCV (RBC) [Entitic vol] 95.0 fL Normal 80.0-100.0 [facility] Comment on above: Performed By: #### A CBC, FEPRO ####Testing performed at [address] [address] Platelet mean volume (Bld) [Entitic vol] 6.9 fL Low 7.4-11.0 [facility] Comment on above: Performed By: #### A CBC, FEPRO ####Testing performed at [address] [address] Platelets (Bld) [#/Vol] 357 10*3/uL Normal 130-400 [facility] Comment on above: Performed By: #### A CBC, FEPRO ####Testing performed at [facility] [address] [address] RBC (Bld) [#/Vol] 2.90 10*6/uL Low 4.0-5.4 [facility] Comment on above: Performed By: #### A CBC, FEPRO ####Testing performed at [address] [address] WBC (Bld) [#/Vol] 6.3 10*3/uL Normal 3.6-11.0 [facility] Comment on above: Performed By: #### A CBC, FEPRO ####Testing performed at [address] [address] IRON PROFILEon 01-20-2024 IRON BINDING 144 UG/DL Low 250-450 [facility] Comment on above: Performed By: #### A CBC #### Testing performed at [address] [address] TRANSFERRIN SATURATION,CALCULATED 20 % Normal [facility] Comment on above: Performed By: #### A CBC #### Testing performed at [address] [address] Iron [Mass/Vol] 29 ug/dL Low 37-170 [facility] Comment on above: Performed By: #### A CBC #### Testing performed at [address] [address] Laboratory - Chemistry and C hemistry - challengeon 01-20-2024 25-hydroxyvitamin D [Mass/Vol] 16.9 NG/ML [facility] Parathyrin.intact [Mass/Vol] 40.2 pg/mL 14.5 - 75.2 pg/mL [facility] Iron [Mass/Vol] 29 ug/dL Low [facility] Iron binding capacity [Mass/Vol] 144 Low [facility] Anion gap [Moles/Vol] 2 mmol/L Low [facility] Calcium [Mass/Vol] 8.3 mg/dL Low [facility] Chloride [Moles/Vol] 103 mmol/L [facility] CO2 [Moles/Vol] 31 mmol/L High [facility] Creatinine [Mass/Vol] 0.60 mg/dL Low [facility] GFR/1.73 sq M.predicted among blacks MDRD (S/P/Bld) [Vol rate/Area] 123 mL/min/{1.73_m2} ml/min/1.73sq .m [facility] GFR/1.73 sq M.predicted among non-blacks MDRD (S/P/Bld) [Vol rate/Area] 102 mL/min/{1.73_m2} ml/min/1.73sq .m [facility] Glucose post fast [Mass/Vol] 91 mg/dL [facility] Potassium [Moles/Vol] 3.8 mmol/L [facility] Sodium [Moles/Vol] 136 mmol/L Low [facility] Urea nitrogen [Mass/Vol] 9 mg/dL [facility] Laboratory - Hematology and Cell countson 01-20-2024 Basophils/100 WBC (Bld) 0.8 % 0.0 - 2.0 % [facility] Differential cell count method Nom (Bld) AUTO DIFF % [facility] Eosinophils (Bld) [#/Vol] 0.2 10*3/uL 0.0 - 0.7 10*3/uL [facility] Eosinophils/100 WBC (Bld) 3.0 % 0.0 - 11.0 % [facility] Erythrocyte distribution width (RBC) [Ratio] 14.0 % 11.5 - 14.5 % [facility] Hematocrit (Bld) [Volume fraction] 27.6 % Low 36.0 - 48.0 % [facility] Hemoglobin (Bld) [Mass/Vol] 9.4 g/dL Low [facility] Lymphocytes (Bld) [#/Vol] 1.2 10*3/uL 1.2 - 3.4 10*3/uL [facility] Lymphocytes/100 WBC (Bld) 19.6 % Low 20.0 - 55.0 % [facility] MCH (RBC) [Entitic mass] 32.3 pg 26.0 - 35.0 PG [facility] MCHC (RBC) [Mass/Vol] 34.0 g/dL [facility] MCV (RBC) [Entitic vol] 95.0 fL [facility] Monocytes (Bld) [#/Vol] 0.7 10*3/uL 0.0 - 0.7 10*3/uL [facility] Monocytes/100 WBC (Bld) 10.9 % High 0.0 - 10.0 % [facility] Neutrophils (Bld) [#/Vol] 4.1 10*3/uL 1.4 - 6.5 10*3/uL [facility] Neutrophils/100 WBC (Bld) 65.7 % 37.0 - 75.0 % [facility] Platelet mean volume (Bld) [Entitic vol] 6.9 fL Low [facility] Platelets (Bld) [#/Vol] 357 10*3/uL 130 - 400 10*3/uL [facility] RBC (Bld) [#/Vol] 2.90 10*6/uL Low 4.0 - 5.4 10*6/uL [facility] WBC (Bld) [#/Vol] 6.3 10*3/uL 3.6 - 11.0 10*3/uL [facility] No Panel Informationon 01-19 [facility] Interpretation and review of laboratory results Abnormal [facility] Transferrin Saturation (%) 20 % [facility] GFR COMMENT Average GFR for 70+ years old = 75. [facility] Interpretation and review of laboratory results Abnormal [facility] ABSOLUTE BASOPHIL COUNT 0.0 10*3/uL 0.0 - 0.2 10*3/uL [facility] Interpretation and review of laboratory results Abnormal [facility] PTH,INTACTon 01-20-2024 PTH,INTACT 40.2 pg/mL Normal 14.5-75.2 [facility] Comment on above: Performed By: #### A CBC #### Testing performed at [address] [address] Portable XR Chest Viewson RADIOLOGY RADIOLOGY [facility] Radiology Study observation (narrative) [facility] Portable XR Chest ViewsOrder ed By: Katina Carlisle on 01-20-2024 [facility] XR CHEST 1 VIEW PORTABLEon 0 [...] markings which may well be chronic. Normal [facility] BASIC METABOLIC PANELon 07-0 Anion gap [Moles/Vol] 3 mmol/L MMOL/L [facility] Calcium [Mass/Vol] 8.4 mg/dL [facility] Chloride [Moles/Vol] 105 mmol/L [facility] Comment on above: Please note: Triglyc eride levels of 600mg/dL or higher may positively bias chloride results by approximately 2.1 mmol CO2 [Moles/Vol] 27 mmol/L [facility] Creatinine [Mass/Vol] 0.60 mg/dL Low [facility] GFR COMMENT Average GFR for 70+ years old = 75. [facility] Comment on above: Chronic Kidney disea se, GFR = <60. Kidney failure, GFR = <15. The GFR estimate is not adjusted for extreme body surface area or acute process, nor has it been validated for women or ethnic groups other than and . GFR/1.73 sq M.predicted among blacks MDRD (S/P/Bld) [Vol rate/Area] 123 mL/min/{1.73_m2} ml/min/1.73sq .m [facility] GFR/1.73 sq M.predicted among non-blacks MDRD (S/P/Bld) [Vol rate/Area] 102 mL/min/{1.73_m2} ml/min/1.73sq .m [facility] Glucose post fast [Mass/Vol] 119 mg/dL High [facility] Comment on above: NORMAL <100 mg/dL PREDIABETES 101-126 mg/dL DIABETES 126 mg/dL or higher Interpretation and review of laboratory results Abnormal [facility] Potassium [Moles/Vol] 3.5 mmol/L [facility] Sodium [Moles/Vol] 135 mmol/L Low [facility] Urea nitrogen [Mass/Vol] 10 mg/dL [facility] BMP FASTINGon 01-18-2024 Anion gap [Moles/Vol] 3 mmol/L Normal [facility] Comment on above: Performed By: #### U GRUPO, UMAC #### Testing performed at [address] [address] Calcium [Mass/Vol] 8.4 mg/dL Normal 8.4-10.2 [facility] Comment on above: Performed By: #### U GRUPO, UMAC #### Testing performed at [address] [address] Chloride [Moles/Vol] 105 mmol/L Normal 98-107 [facility] Comment on above: Result Comment: Shonda matthews note: Triglyceride levels of 600mg/dL or higher may positively bias chloride results by approximately 2.1 mmol Performed By: #### U GRUPO, UMAC #### Testing performed at [address] [address] CO2 [Moles/Vol] 27 mmol/L Normal 22-30 [facility] Comment on above: Performed By: #### U GRUPO, UMAC #### Testing performed at [address] [address] Creatinine [Mass/Vol] 0.60 mg/dL Low 0.70-1.20 [facility] Comment on above: Performed By: #### U GRUPO, UMAC #### Testing performed at [address] [address] EST. GFR, 123 ml/min/1.73sq.m Normal [facility] Comment on above: Performed By: #### U GRUPO, UMAC #### Testing performed at [address] [address] EST. GFR,Non 102 ml/min/1.73sq.m Normal [facility] Comment on above: Performed By: #### U GRUPO, UMAC #### Testing performed at [address] [address] GFR Information Average GFR for 70+ years old = 75. Normal [facility] Comment on above: Result Comment: [employer]endi[employer] Supervisor aviva Kidney disease, GFR = <60. Kidney failure, GFR = <15. The GFR estimate is not adjusted for extreme body surface area or acute process, nor has it been validated for women or ethnic groups other than and . Performed By: #### U GRUPO, UMAC #### Testing performed at [address] [address] Glucose [Mass/Vol] 119 mg/dL High 70-100 [facility] Comment on above: Result Comment: NORMAL <100 mg/dL PREDIABETES 101-126 mg/dL DIABETES 126 mg/dL or higher Performed By: #### U GRUPO, UMAC #### Testing performed at [address] [address] Potassium [Moles/Vol] 3.5 mmol/L Normal 3.5-5.1 [facility] Comment on above: Performed By: #### U GRUPO, UMAC #### Testing performed at [address] [address] Sodium [Moles/Vol] 135 mmol/L Low 137-145 [facility] Comment on above: Performed By: #### U GRUPO, UMAC #### Testing performed at [address] [address] Urea nitrogen [Mass/Vol] 10 mg/dL Normal 7-20 [facility] Comment on above: Performed By: #### U GRUPO, UMAC #### Testing performed at [address] [address] CBCon 01-17-2024 ABSOLUTE BAS 0.0 10*3/uL Normal 0.0-0.2 [facility] Comment on above: Performed By: #### U GRUPO, UMAC #### Testing performed at [address] [address] ABSOLUTE EOS 0.1 10*3/uL Normal 0.0-0.7 [facility] Comment on above: Performed By: #### U GRUPO, UMAC #### Testing performed at [address] [address] ABSOLUTE NEUTROPHIL COUNT 4.7 10*3/uL Normal 1.4-6.5 [facility] Comment on above: Performed By: #### U GRUPO, UMAC #### Testing performed at [address] [address] Basophils/100 WBC (Bld) 0.6 % Normal 0.0-2.0 [facility] Comment on above: Performed By: #### U GRUPO, UMAC #### Testing performed at [address] [address] DTYPE AUTO DIFF Normal [facility] Comment on above: Performed By: #### U GRUPO, UMAC #### Testing performed at [address] [address] Eosinophils/100 WBC (Bld) 1.9 % Normal 0.0-11.0 [facility] Comment on above: Performed By: #### U GRUPO, UMAC #### Testing performed at [address] [address] Erythrocyte distribution width (RBC) [Ratio] 13.9 % Normal 11.5-14.5 [facility] Comment on above: Performed By: #### U GRUPO, UMAC #### Testing performed at [address] [address] Hematocrit (Bld) [Volume fraction] 29.2 % Low 36.0-48.0 [facility] Comment on above: Performed By: #### U GRUPO, UMAC #### Testing performed at [address] [address] Hemoglobin (Bld) [Mass/Vol] 9.8 g/dL Low 12.0-16.0 [facility] Comment on above: Performed By: #### U GRUPO, UMAC #### Testing performed at [address] [address] Lymphocytes (Bld) [#/Vol] 1.1 10*3/uL Low 1.2-3.4 [facility] Comment on above: Performed By: #### U GRUPO, UMAC #### Testing performed at [address] [address] Lymphocytes/100 WBC (Bld) 16.5 % Low 20.0-55.0 [facility] Comment on above: Performed By: #### U GRUPO, UMAC #### Testing performed at [address] [address] MCH (RBC) [Entitic mass] 31.8 pg Normal 26.0-35.0 [facility] Comment on above: Performed By: #### U GRUPO, UMAC #### Testing performed at [address] [address] MCHC (RBC) [Mass/Vol] 33.6 g/dL Normal 27.0-37.0 [facility] Comment on above: Performed By: #### U GRUPO, UMAC #### Testing performed at [address] [address] MCV (RBC) [Entitic vol] 94.6 fL Normal 80.0-100.0 [facility] Comment on above: Performed By: #### U GRUPO, UMAC #### Testing performed at [address] [address] Monocytes (Bld) [#/Vol] 0.8 10*3/uL High 0.0-0.7 [facility] Comment on above: Performed By: #### U GRUPO, UMAC #### Testing performed at [address] [address] Monocytes/100 WBC (Bld) 11.9 % High 0.0-10.0 [facility] Comment on above: Performed By: #### U GRUPO, UMAC #### Testing performed at [address] [address] Neutrophils/100 WBC (Bld) 69.1 % Normal 37.0-75.0 [facility] Comment on above: Performed By: #### U GRUPO, UMAC #### Testing performed at [address] [address] Platelet mean volume (Bld) [Entitic vol] 7.9 fL Normal 7.4-11.0 [facility] Comment on above: Performed By: #### U GRUPO, UMAC #### Testing performed at [address] [address] Platelets (Bld) [#/Vol] 279 10*3/uL Normal 130-400 [facility] Comment on above: Performed By: #### U GRUPO, UMAC #### Testing performed at [address] [address] RBC (Bld) [#/Vol] 3.09 10*6/uL Low 4.0-5.4 [facility] Comment on above: Performed By: #### U GRUPO, UMAC #### Testing performed at [address] [address] WBC (Bld) [#/Vol] 6.8 10*3/uL Normal 3.6-11.0 [facility] Comment on above: Performed By: #### U GRUPO, UMAC #### Testing performed at [address] [address] CBC, EDIF, PLATELETon 2023 ABSOLUTE BASOPHIL COUNT 0.0 10*3/uL 0.0 - 0.2 10*3/uL [facility] Basophils/100 WBC (Bld) 0.6 % 0.0 - 2.0 % [facility] Differential cell count method Nom (Bld) AUTO DIFF % [facility] Eosinophils (Bld) [#/Vol] 0.1 10*3/uL 0.0 - 0.7 10*3/uL [facility] Eosinophils/100 WBC (Bld) 1.9 % 0.0 - 11.0 % [facility] Erythrocyte distribution width (RBC) [Ratio] 13.9 % 11.5 - 14.5 % [facility] Hematocrit (Bld) [Volume fraction] 29.2 % Low 36.0 - 48.0 % [facility] Hemoglobin (Bld) [Mass/Vol] 9.8 g/dL Low [facility] Interpretation and review of laboratory results Abnormal [facility] Lymphocytes (Bld) [#/Vol] 1.1 10*3/uL Low 1.2 - 3.4 10*3/uL [facility] Lymphocytes/100 WBC (Bld) 16.5 % Low 20.0 - 55.0 % [facility] MCH (RBC) [Entitic mass] 31.8 pg 26.0 - 35.0 PG [facility] MCHC (RBC) [Mass/Vol] 33.6 g/dL [facility] MCV (RBC) [Entitic vol] 94.6 fL [facility] Monocytes (Bld) [#/Vol] 0.8 10*3/uL High 0.0 - 0.7 10*3/uL [facility] Monocytes/100 WBC (Bld) 11.9 % High 0.0 - 10.0 % [facility] Neutrophils (Bld) [#/Vol] 4.7 10*3/uL 1.4 - 6.5 10*3/uL [facility] Neutrophils/100 WBC (Bld) 69.1 % 37.0 - 75.0 % [facility] Platelet mean volume (Bld) [Entitic vol] 7.9 fL [facility] Platelets (Bld) [#/Vol] 279 10*3/uL 130 - 400 10*3/uL [facility] RBC (Bld) [#/Vol] 3.09 10*6/uL Low 4.0 - 5.4 10*6/uL [facility] WBC (Bld) [#/Vol] 6.8 10*3/uL 3.6 - 11.0 10*3/uL [facility] RENAL FUNCTION PANELon 01-16 Albumin [Mass/Vol] 2.6 G/dl Low 3.5 - 5.0 G/dl [facility] Calcium [Mass/Vol] 8.2 mg/dL Low [facility] Chloride [Moles/Vol] 105 mmol/L [facility] Comment on above: Please note: Triglyc eride levels of 600mg/dL or higher may positively bias chloride results by approximately 2.1 mmol CO2 [Moles/Vol] 29 mmol/L [facility] Creatinine [Mass/Vol] 0.51 mg/dL Low [facility] GFR COMMENT Average GFR for 70+ years old = 75. [facility] Comment on above: Chronic Kidney disea se, GFR = <60. Kidney failure, GFR = <15. The GFR estimate is not adjusted for extreme body surface area or acute process, nor has it been validated for women or ethnic groups other than and . GFR/1.73 sq M.predicted among blacks MDRD (S/P/Bld) [Vol rate/Area] 149 mL/min/{1.73_m2} ml/min/1.73sq .m [facility] GFR/1.73 sq M.predicted among non-blacks MDRD (S/P/Bld) [Vol rate/Area] 123 mL/min/{1.73_m2} ml/min/1.73sq .m [facility] Glucose post fast [Mass/Vol] 106 mg/dL High [facility] Comment on above: NORMAL <100 mg/dL PREDIABETES 101-126 mg/dL DIABETES 126 mg/dL or higher Interpretation and review of laboratory results Abnormal [facility] Phosphate [Mass/Vol] 2.6 mg/dL [facility] Potassium [Moles/Vol] 3.3 mmol/L Low [facility] Sodium [Moles/Vol] 135 mmol/L Low [facility] Urea nitrogen [Mass/Vol] 10 mg/dL [facility] RENAL PANEL,FASTINGon 2023 ALBUMIN 2.6 G/dl Low 3.5-5.0 [facility] Comment on above: Performed By: #### U GRUPO, UMAC #### Testing performed at [address] [address] Calcium [Mass/Vol] 8.2 mg/dL Low 8.4-10.2 [facility] Comment on above: Performed By: #### U GRUPO, UMAC #### Testing performed at [address] [address] Chloride [Moles/Vol] 105 mmol/L Normal 98-107 [facility] Comment on above: Result Comment: Plea se note: Triglyceride levels of 600mg/dL or higher may positively bias chloride results by approximately 2.1 mmol Performed By: #### U GRUPO, UMAC #### Testing performed at [address] [address] CO2 [Moles/Vol] 29 mmol/L Normal 22-30 [facility] Comment on above: Performed By: #### U GRUPO, UMAC #### Testing performed at [address] [address] Creatinine [Mass/Vol] 0.51 mg/dL Low 0.70-1.20 [facility] Comment on above: Performed By: #### U GRUPO, UMAC #### Testing performed at [address] [address] EST. GFR, 149 ml/min/1.73sq.m [facility] Comment on above: Performed By: #### U GRUPO, UMAC #### Testing performed at [address] [address] EST. GFR,Non 123 ml/min/1.73sq.m [facility] Comment on above: Performed By: #### U GRUPO, UMAC #### Testing performed at [address] [address] GFR Information Average GFR for 70+ years old = 75. Normal [facility] Comment on above: Result Comment: [employer]endi[employer] Supervisor aviva Kidney disease, GFR = <60. Kidney failure, GFR = <15. The GFR estimate is not adjusted for extreme body surface area or acute process, nor has it been validated for women or ethnic groups other than and . Performed By: #### U GRUPO, UMAC #### Testing performed at [address] [address] Glucose [Mass/Vol] 106 mg/dL High 70-100 [facility] Comment on above: Result Comment: NORMAL <100 mg/dL PREDIABETES 101-126 mg/dL DIABETES 126 mg/dL or higher Performed By: #### U GRUPO, UMAC #### Testing performed at [address] [address] PHOSPHOROUS 2.6 MG/DL Normal 2.5-4.5 [facility] Comment on above: Performed By: #### U GRUPO, UMAC #### Testing performed at [address] [address] Potassium [Moles/Vol] 3.3 mmol/L Low 3.5-5.1 [facility] Comment on above: Performed By: #### U GRUPO, UMAC #### Testing performed at [address] [address] Sodium [Moles/Vol] 135 mmol/L Low 137-145 [facility] Comment on above: Performed By: #### U GRUPO, UMAC #### Testing performed at [address] [address] Urea nitrogen [Mass/Vol] 10 mg/dL Normal 7-20 [facility] Comment on above: Performed By: #### U GRUPO, UMAC #### Testing performed at [address] [address] SURGICAL PATHOLOGY REQUESTon 01-17-2024 Pathology report final diagnosis Narrative Surgical Final Report Patient Name: CUATE GOODMAN [facility]. Rec. #: [id number] Physician: ERIK HEREDIA Specimen(s) Received Left femoral [...] articular cartilage degeneration. Sectioning reveals unremarkable bone. Sheep Rancher sections are submitted in one cassette and placed in decalcification solution prior to processing. Billing Fee Code(s) A: 77867, 73829 [facility] XR FOOT RIGHT 2 VIEWSon 070 XR FOOT RIGHT 2 VIEWS EXAM: XR [...] and hallux valgus with osseous demineralization. Normal [facility] XR Foot - right [...] DJD and hallux valgus with osseous demineralization. [facility] Radiology Study observation (narrative) [facility] XR Foot - right 2 ViewsOrder ed By: Miguel Marin on 01-17-2024 [facility] Work Phone: CBCon 01-14-2024 ABSOLUTE BAS 0.0 10*3/uL Normal 0.0-0.2 [facility] Comment on above: Performed By: #### U GRUPO, UMAC #### Testing performed at [address] [address] ABSOLUTE EOS 0.1 10*3/uL Normal 0.0-0.7 [facility] Comment on above: Performed By: #### U GRUPO, UMAC #### Testing performed at [address] [place] [address] ABSOLUTE NEUTROPHIL COUNT 7.6 10*3/uL High 1.4-6.5 [facility] Comment on above: Performed By: #### U GRUPO, UMAC #### Testing performed at [address] [address] Basophils/100 WBC (Bld) 0.3 % Normal 0.0-2.0 [facility] Comment on above: Performed By: #### U GRUPO, UMAC #### Testing performed at [address] [place] [address] DTYPE AUTO DIFF Normal [facility] Comment on above: Performed By: #### U GRUPO, UMAC #### Testing performed at [address] [address] Eosinophils/100 WBC (Bld) 0.5 % Normal 0.0-11.0 [facility] Comment on above: Performed By: #### U GRUPO, UMAC #### Testing performed at [address] [address] Lymphocytes (Bld) [#/Vol] 1.1 10*3/uL Low 1.2-3.4 [facility] Comment on above: Performed By: #### U GRUPO, UMAC #### Testing performed at [address] [place] [address] Lymphocytes/100 WBC (Bld) 11.0 % Low 20.0-55.0 [facility] Comment on above: Performed By: #### U GRUPO, UMAC #### Testing performed at [address] [address] Monocytes (Bld) [#/Vol] 1.1 10*3/uL High 0.0-0.7 [facility] Comment on above: Performed By: #### U GRUPO, UMAC #### Testing performed at [address] [address] Monocytes/100 WBC (Bld) 10.8 % High 0.0-10.0 [facility] Comment on above: Performed By: #### U GRUPO, UMAC #### Testing performed at [address] [address] Neutrophils/100 WBC (Bld) 77.4 % High 37.0-75.0 [facility] Comment on above: Performed By: #### U GRUPO, UMAC #### Testing performed at [address] [address] Erythrocyte distribution width (RBC) [Ratio] 14.6 % High 11.5-14.5 [facility] Comment on above: Performed By: #### U GRUPO, UMAC #### Testing performed at [address] [address] Hematocrit (Bld) [Volume fraction] 32.1 % Low 36.0-48.0 [facility] Comment on above: Performed By: #### U GRUPO, UMAC #### Testing performed at [address] [address] Hemoglobin (Bld) [Mass/Vol] 10.5 g/dL Low 12.0-16.0 [facility] Comment on above: Performed By: #### U GRUPO, UMAC #### Testing performed at [address] [address] MCH (RBC) [Entitic mass] 31.4 pg Normal 26.0-35.0 [facility] Comment on above: Performed By: #### U GRUPO, UMAC #### Testing performed at [address] [address] MCHC (RBC) [Mass/Vol] 32.8 g/dL Normal 27.0-37.0 [facility] Comment on above: Performed By: #### U GRUPO, UMAC #### Testing performed at [address] [address] MCV (RBC) [Entitic vol] 96.0 fL Normal 80.0-100.0 [facility] Comment on above: Performed By: #### U GRUPO, UMAC #### Testing performed at [address] [address] Platelet mean volume (Bld) [Entitic vol] 8.4 fL Normal 7.4-11.0 [facility] Comment on above: Performed By: #### U GRUPO, UMAC #### Testing performed at [address] [address] Platelets (Bld) [#/Vol] 226 10*3/uL Normal 130-400 [facility] Comment on above: Performed By: #### U GRU[facility], [facility] #### Testing performed at [address] [address] RBC (Bld) [#/Vol] 3.35 10*6/uL Low 4.0-5.4 [facility] Comment on above: Performed By: #### U GRU[facility], UMAC #### Testing performed at [address] [address] WBC (Bld) [#/Vol] 9.9 10*3/uL Normal 3.6-11.0 [facility] Comment on above: Performed By: #### U GRU[facility], UMAC #### Testing performed at [address] [address] CBC, EDIF, PLATELETon 2023 ABSOLUTE BASOPHIL COUNT 0.0 10*3/uL 0.0 - 0.2 10*3/uL [facility] Basophils/100 WBC (Bld) 0.3 % 0.0 - 2.0 % [facility] Differential cell count method Nom (Bld) AUTO DIFF % [facility] Eosinophils (Bld) [#/Vol] 0.1 10*3/uL 0.0 - 0.7 10*3/uL [facility] Eosinophils/100 WBC (Bld) 0.5 % 0.0 - 11.0 % [facility] Erythrocyte distribution width (RBC) [Ratio] 14.6 % High 11.5 - 14.5 % [facility] Hematocrit (Bld) [Volume fraction] 32.1 % Low 36.0 - 48.0 % [facility] Hemoglobin (Bld) [Mass/Vol] 10.5 g/dL Low [facility] Interpretation and review of laboratory results Abnormal [facility] Lymphocytes (Bld) [#/Vol] 1.1 10*3/uL Low 1.2 - 3.4 10*3/uL [facility] Lymphocytes/100 WBC (Bld) 11.0 % Low 20.0 - 55.0 % [facility] MCH (RBC) [Entitic mass] 31.4 pg 26.0 - 35.0 PG [facility] MCHC (RBC) [Mass/Vol] 32.8 g/dL [facility] MCV (RBC) [Entitic vol] 96.0 fL [facility] Monocytes (Bld) [#/Vol] 1.1 10*3/uL High 0.0 - 0.7 10*3/uL [facility] Monocytes/100 WBC (Bld) 10.8 % High 0.0 - 10.0 % [facility] Neutrophils (Bld) [#/Vol] 7.6 10*3/uL High 1.4 - 6.5 10*3/uL [facility] Neutrophils/100 WBC (Bld) 77.4 % High 37.0 - 75.0 % [facility] Platelet mean volume (Bld) [Entitic vol] 8.4 fL [facility] Platelets (Bld) [#/Vol] 226 10*3/uL 130 - 400 10*3/uL [facility] RBC (Bld) [#/Vol] 3.35 10*6/uL Low 4.0 - 5.4 10*6/uL [facility] WBC (Bld) [#/Vol] 9.9 10*3/uL 3.6 - 11.0 10*3/uL [facility] BASIC METABOLIC PANELon 06-2 Anion gap [Moles/Vol] 4 mmol/L MMOL/L [facility] Calcium [Mass/Vol] 9.0 mg/dL [facility] Chloride [Moles/Vol] 107 mmol/L [facility] Comment on above: Please note: Triglyc eride levels of 600mg/dL or higher may positively bias chloride results by approximately 2.1 mmol CO2 [Moles/Vol] 26 mmol/L [facility] Creatinine [Mass/Vol] 0.70 mg/dL [facility] GFR COMMENT Average GFR for 70+ years old = 75. [facility] Comment on above: Chronic Kidney disea se, GFR = <60. Kidney failure, GFR = <15. The GFR estimate is not adjusted for extreme body surface area or acute process, nor has it been validated for women or ethnic groups other than and . GFR/1.73 sq M.predicted among blacks MDRD (S/P/Bld) [Vol rate/Area] 103 mL/min/{1.73_m2} ml/min/1.73sq .m [facility] GFR/1.73 sq M.predicted among non-blacks MDRD (S/P/Bld) [Vol rate/Area] 85 mL/min/{1.73_m2} ml/min/1.73sq .m [facility] Glucose post fast [Mass/Vol] 164 mg/dL High [facility] Comment on above: NORMAL <100 mg/dL PREDIABETES 101-126 mg/dL DIABETES 126 mg/dL or higher Interpretation and review of laboratory results Abnormal [facility] Potassium [Moles/Vol] 4.2 mmol/L [facility] Sodium [Moles/Vol] 137 mmol/L [facility] Urea nitrogen [Mass/Vol] 19 mg/dL [facility] BMP FASTINGon 01-13-2024 Anion gap [Moles/Vol] 4 mmol/L Normal [facility] Comment on above: Performed By: #### A CBC, BMPF #### Testing performed at [address] [address] Calcium [Mass/Vol] 9.0 mg/dL Normal 8.4-10.2 [facility] Comment on above: Performed By: #### A CBC, BMPF #### Testing performed at [address] [address] Chloride [Moles/Vol] 107 mmol/L Normal 98-107 [facility] Comment on above: Result Comment: Plea se note: Triglyceride levels of 600mg/dL or higher may positively bias chloride results by approximately 2.1 mmol Performed By: #### A CBC, BMPF #### Testing performed at [address] [address] CO2 [Moles/Vol] 26 mmol/L Normal 22-30 [facility] Comment on above: Performed By: #### A CBC, BMPF #### Testing performed at [address] [address] Creatinine [Mass/Vol] 0.70 mg/dL Normal 0.70-1.20 [facility] Comment on above: Performed By: #### A CBC, BMPF #### Testing performed at [address] [address] EST. GFR, 103 ml/min/1.73sq.m [facility] Comment on above: Performed By: #### A CBC, BMPF #### Testing performed at [address] [address] EST. GFR,Non 85 ml/min/1.73sq.m [facility] Comment on above: Performed By: #### A CBC, BMPF #### Testing performed at [address] [address] GFR Information Average GFR for 70+ years old = 75. Normal [facility] Comment on above: Result Comment: [employer]visor aviva Kidney disease, GFR = <60. Kidney failure, GFR = <15. The GFR estimate is not adjusted for extreme body surface area or acute process, nor has it been validated for women or ethnic groups other than and . Performed By: #### A CBC, BMPF #### Testing performed at [address] [address] Glucose [Mass/Vol] 164 mg/dL High 70-100 [facility] Comment on above: Result Comment: NORMAL <100 mg/dL PREDIABETES 101-126 mg/dL DIABETES 126 mg/dL or higher Performed By: #### A CBC, BMPF #### Testing performed at [address] [address] Potassium [Moles/Vol] 4.2 mmol/L Normal 3.5-5.1 [facility] Comment on above: Performed By: #### A CBC, BMPF #### Testing performed at [address] [address] Sodium [Moles/Vol] 137 mmol/L Normal 137-145 [facility] Comment on above: Performed By: #### A CBC, BMPF #### Testing performed at [address] [address] Urea nitrogen [Mass/Vol] 19 mg/dL Normal 7-20 [facility] Comment on above: Performed By: #### A CBC, BMPF #### Testing performed at [address] [address] CBCon 01-13-2024 ABSOLUTE BAS 0.0 10*3/uL Normal 0.0-0.2 [facility] Comment on above: Performed By: #### A CBC, BMPF #### Testing performed at [address] [address] ABSOLUTE EOS 0.0 10*3/uL Normal 0.0-0.7 [facility] Comment on above: Performed By: #### A CBC, BMPF #### Testing performed at [address] [address] ABSOLUTE NEUTROPHIL COUNT 8.6 10*3/uL High 1.4-6.5 [facility] Comment on above: Performed By: #### A CBC, BMPF #### Testing performed at [address] [address] Basophils/100 WBC (Bld) 0.0 % Normal 0.0-2.0 [facility] Comment on above: Performed By: #### A CBC, BMPF #### Testing performed at [address] [address] DTYPE AUTO DIFF Normal [facility] Comment on above: Performed By: #### A CBC, BMPF #### Testing performed at [address] [address] Eosinophils/100 WBC (Bld) 0.0 % Normal 0.0-11.0 [facility] Comment on above: Performed By: #### A CBC, BMPF #### Testing performed at [address] [address] Lymphocytes (Bld) [#/Vol] 0.6 10*3/uL Low 1.2-3.4 [facility] Comment on above: Performed By: #### A CBC, BMPF #### Testing performed at [address] [address] Lymphocytes/100 WBC (Bld) 5.9 % Low 20.0-55.0 [facility] Comment on above: Performed By: #### A CBC, BMPF #### Testing performed at [address] [address] Monocytes (Bld) [#/Vol] 0.8 10*3/uL High 0.0-0.7 [facility] Comment on above: Performed By: #### A CBC, BMPF #### Testing performed at [address] [address] Monocytes/100 WBC (Bld) 8.3 % Normal 0.0-10.0 [facility] Comment on above: Performed By: #### A CBC, BMPF #### Testing performed at [address] [address] Neutrophils/100 WBC (Bld) 85.8 % High 37.0-75.0 [facility] Comment on above: Performed By: #### A CBC, BMPF #### Testing performed at [address] [address] Erythrocyte distribution width (RBC) [Ratio] 14.5 % Normal 11.5-14.5 [facility] Comment on above: Performed By: #### A CBC, BMPF #### Testing performed at [address] [address] Hematocrit (Bld) [Volume fraction] 31.8 % Low 36.0-48.0 [facility] Comment on above: Performed By: #### A CBC, BMPF #### Testing performed at [address] [address] Hemoglobin (Bld) [Mass/Vol] 10.6 g/dL Low 12.0-16.0 [facility] Comment on above: Performed By: #### A CBC, BMPF #### Testing performed at [address] [address] MCH (RBC) [Entitic mass] 31.9 pg Normal 26.0-35.0 [facility] Comment on above: Performed By: #### A CBC, BMPF #### Testing performed at [address] [address] MCHC (RBC) [Mass/Vol] 33.2 g/dL Normal 27.0-37.0 [facility] Comment on above: Performed By: #### A CBC, BMPF #### Testing performed at [address] [address] MCV (RBC) [Entitic vol] 95.9 fL Normal 80.0-100.0 [facility] Comment on above: Performed By: #### A CBC, BMPF #### Testing performed at [address] [address] Platelet mean volume (Bld) [Entitic vol] 8.1 fL Normal 7.4-11.0 [facility] Comment on above: Performed By: #### A CBC, BMPF #### Testing performed at [address] [address] Platelets (Bld) [#/Vol] 228 10*3/uL Normal 130-400 [facility] Comment on above: Performed By: #### A CBC, BMPF #### Testing performed at [address] [address] RBC (Bld) [#/Vol] 3.31 10*6/uL Low 4.0-5.4 [facility] Comment on above: Performed By: #### A CBC, BMPF #### Testing performed at [address] [address] WBC (Bld) [#/Vol] 10.0 10*3/uL Normal 3.6-11.0 [facility] Comment on above: Performed By: #### A CBC, BMPF #### Testing performed at [address] [address] CBC, EDIF, PLATELETon 2023 ABSOLUTE BASOPHIL COUNT 0.0 10*3/uL 0.0 - 0.2 10*3/uL [facility] Basophils/100 WBC (Bld) 0.0 % 0.0 - 2.0 % [facility] Differential cell count method Nom (Bld) AUTO DIFF % [facility] Eosinophils (Bld) [#/Vol] 0.0 10*3/uL 0.0 - 0.7 10*3/uL [facility] Eosinophils/100 WBC (Bld) 0.0 % 0.0 - 11.0 % [facility] Erythrocyte distribution width (RBC) [Ratio] 14.5 % 11.5 - 14.5 % [facility] Hematocrit (Bld) [Volume fraction] 31.8 % Low 36.0 - 48.0 % [facility] Hemoglobin (Bld) [Mass/Vol] 10.6 g/dL Low [facility] Interpretation and review of laboratory results Abnormal [facility] Lymphocytes (Bld) [#/Vol] 0.6 10*3/uL Low 1.2 - 3.4 10*3/uL [facility] Lymphocytes/100 WBC (Bld) 5.9 % Low 20.0 - 55.0 % [facility] MCH (RBC) [Entitic mass] 31.9 pg 26.0 - 35.0 PG [facility] MCHC (RBC) [Mass/Vol] 33.2 g/dL [facility] MCV (RBC) [Entitic vol] 95.9 fL [facility] Monocytes (Bld) [#/Vol] 0.8 10*3/uL High 0.0 - 0.7 10*3/uL [facility] Monocytes/100 WBC (Bld) 8.3 % 0.0 - 10.0 % [facility] Neutrophils (Bld) [#/Vol] 8.6 10*3/uL High 1.4 - 6.5 10*3/uL [facility] Neutrophils/100 WBC (Bld) 85.8 % High 37.0 - 75.0 % [facility] Platelet mean volume (Bld) [Entitic vol] 8.1 fL [facility] Platelets (Bld) [#/Vol] 228 10*3/uL 130 - 400 10*3/uL [facility] RBC (Bld) [#/Vol] 3.31 10*6/uL Low 4.0 - 5.4 10*6/uL [facility] WBC (Bld) [#/Vol] 10.0 10*3/uL 3.6 - 11.0 10*3/uL [facility] ECGOrdered By: Thom estevez on 01-13-2024 [facility] Work Phone: TROPONIN I, HIGH SENSITIVITY on 01-13-2024 Interpretation and review of laboratory results Abnormal [facility] TROPONIN I, HIGH SENSITIVITY 14 pg/mL High 0 - 12 pg/mL [facility] Comment on above: Indeterminant: >12 to 100 pg/mL female >20 to 100 pg/mL male Indicative of myocardial injury. Serial sampling is recommended, a change of greater than or equal to 20 pg/mL is indicative of acute coronary syndrome. [facility] TROPONIN I, HIGH SENSITIVITY 14 pg/mL High 0-12 [facility] Comment on above: Result Comment: Indeterminant: >12 to 100 pg/mL female >20 to 100 pg/mL male Indicative of myocardial injury. Serial sampling is recommended, a change of greater than or equal to 20 pg/mL is indicative of acute coronary syndrome. Performed By: #### U [facility], [facility] #### Testing performed at [address] [address] TROPONIN I, HIGH SENSITIVITY 10 pg/mL 0 - 12 pg/mL [facility] Comment on above: Indeterminant: >12 to 100 pg/mL female >20 to 100 pg/mL male Indicative of myocardial injury. Serial sampling is recommended, a change of greater than or equal to 20 pg/mL is indicative of acute coronary syndrome. [facility] TROPONIN I, HIGH SENSITIVITY 10 pg/mL Normal 0-12 [facility] Comment on above: Result Comment: Indeterminant: >12 to 100 pg/mL female >20 to 100 pg/mL male Indicative of myocardial injury. Serial sampling is recommended, a change of greater than or equal to 20 pg/mL is indicative of acute coronary syndrome. Performed By: #### T [facility] #### Testing performed at [address] [address] TROPONIN I, HIGH SENSITIVITY 9 pg/mL 0 - 12 pg/mL [facility] Comment on above: Indeterminant: >12 to 100 pg/mL female >20 to 100 pg/mL male Indicative of myocardial injury. Serial sampling is recommended, a change of greater than or equal to 20 pg/mL is indicative of acute coronary syndrome. [facility] TROPONIN I, HIGH SENSITIVITY 9 pg/mL Normal 0-12 [facility] Comment on above: Result Comment: Indeterminant: >12 to 100 pg/mL female >20 to 100 pg/mL male Indicative of myocardial injury. Serial sampling is recommended, a change of greater than or equal to 20 pg/mL is indicative of acute coronary syndrome. Performed By: #### U [facility], [facility] #### Testing performed at [facility] [address] [place] [address] XR PELVIS 1-2 VIEWSon 2023 XR PELVIS [...] Postsurgical findings of left hip arthroplasty. Normal [facility] XR Pelvis 2 Viewson 01-13-20 [...] IMPRESSION: Postsurgical findings of left hip arthroplasty. [facility] XR Pelvis 2 ViewsOrdered By: Eyad Aldridge on 01-13-2024 [facility] Work Phone: BASIC METABOLIC PANELon 12-18 Anion gap [Moles/Vol] 9 mmol/L MMOL/L [facility] Calcium [Mass/Vol] 9.1 mg/dL [facility] Chloride [Moles/Vol] 105 mmol/L [facility] Comment on above: Please note: Triglyc eride levels of 600mg/dL or higher may positively bias chloride results by approximately 2.1 mmol CO2 [Moles/Vol] 24 mmol/L [facility] Creatinine [Mass/Vol] 0.70 mg/dL [facility] GFR COMMENT Average GFR for 70+ years old = 75. [facility] Comment on above: Chronic Kidney disea se, GFR = <60. Kidney failure, GFR = <15. The GFR estimate is not adjusted for extreme body surface area or acute process, nor has it been validated for women or ethnic groups other than and . GFR/1.73 sq M.predicted among blacks MDRD (S/P/Bld) [Vol rate/Area] 103 mL/min/{1.73_m2} ml/min/1.73sq .m [facility] GFR/1.73 sq M.predicted among non-blacks MDRD (S/P/Bld) [Vol rate/Area] 85 mL/min/{1.73_m2} ml/min/1.73sq .m [facility] Glucose post fast [Mass/Vol] 179 mg/dL High [facility] Comment on above: NORMAL <100 mg/dL PREDIABETES 101-126 mg/dL DIABETES 126 mg/dL or higher Interpretation and review of laboratory results Abnormal [facility] Potassium [Moles/Vol] 4.0 mmol/L [facility] Sodium [Moles/Vol] 138 mmol/L [facility] Urea nitrogen [Mass/Vol] 16 mg/dL [facility] BMP FASTINGon 01-12-2024 Anion gap [Moles/Vol] 9 mmol/L Normal [facility] Comment on above: Performed By: #### U [facility], UMAC #### Testing performed at [facility] [address] [place] [address] Calcium [Mass/Vol] 9.1 mg/dL Normal 8.4-10.2 [facility] Comment on above: Performed By: #### U GRUPO, UMAC #### Testing performed at [address] [address] Chloride [Moles/Vol] 105 mmol/L Normal 98-107 [facility] Comment on above: Result Comment: Shonda matthews note: Triglyceride levels of 600mg/dL or higher may positively bias chloride results by approximately 2.1 mmol Performed By: #### U GRUPO, UMAC #### Testing performed at [address] [address] CO2 [Moles/Vol] 24 mmol/L Normal 22-30 [facility] Comment on above: Performed By: #### U GRUPO, UMAC #### Testing performed at [address] [address] Creatinine [Mass/Vol] 0.70 mg/dL Normal 0.70-1.20 [facility] Comment on above: Performed By: #### U GRUPO, UMAC #### Testing performed at [address] [address] EST. GFR, 103 ml/min/1.73sq.m [facility] Comment on above: Performed By: #### U GRUPO, UMAC #### Testing performed at [address] [address] EST. GFR,Non 85 ml/min/1.73sq.m [facility] Comment on above: Performed By: #### U GRUPO, UMAC #### Testing performed at [address] [address] GFR Information Average GFR for 70+ years old = 75. Normal [facility] Comment on above: Result Comment: [employer] Supervisor aviva Kidney disease, GFR = <60. Kidney failure, GFR = <15. The GFR estimate is not adjusted for extreme body surface area or acute process, nor has it been validated for women or ethnic groups other than and . Performed By: #### U GRUPO, UMAC #### Testing performed at [address] [address] Glucose [Mass/Vol] 179 mg/dL High 70-100 [facility] Comment on above: Result Comment: NORMAL <100 mg/dL PREDIABETES 101-126 mg/dL DIABETES 126 mg/dL or higher Performed By: #### U GRUPO, UMAC #### Testing performed at [address] [address] Potassium [Moles/Vol] 4.0 mmol/L Normal 3.5-5.1 [facility] Comment on above: Performed By: #### U GRUPO, UMAC #### Testing performed at [address] [address] Sodium [Moles/Vol] 138 mmol/L Normal 137-145 [facility] Comment on above: Performed By: #### U GRU[facility], UMAC #### Testing performed at [address] [address] Urea nitrogen [Mass/Vol] 16 mg/dL Normal 7-20 [facility] Comment on above: Performed By: #### U GRUPO, UMAC #### Testing performed at [address] [address] CBCon 01-12-2024 ABSOLUTE BAS 0.0 10*3/uL Normal 0.0-0.2 [facility] Comment on above: Performed By: #### U GRUPO, UMAC #### Testing performed at [address] [address] ABSOLUTE EOS 0.0 10*3/uL Normal 0.0-0.7 [facility] Comment on above: Performed By: #### U GRUPO, UMAC #### Testing performed at [address] [place] [address] ABSOLUTE NEUTROPHIL COUNT 9.4 10*3/uL High 1.4-6.5 [facility] Comment on above: Performed By: #### U GRUPO, UMAC #### Testing performed at [address] [place] [address] Basophils/100 WBC (Bld) 0.1 % Normal 0.0-2.0 [facility] Comment on above: Performed By: #### U GRUPO, UMAC #### Testing performed at [address] [address] DTYPE AUTO DIFF Normal [facility] Comment on above: Performed By: #### U GRUPO, [facility] #### Testing performed at [address] [address] Eosinophils/100 WBC (Bld) 0.0 % Normal 0.0-11.0 [facility] Comment on above: Performed By: #### U GRUPO, [facility]MAC #### Testing performed at [address] [address] Lymphocytes (Bld) [#/Vol] 0.6 10*3/uL Low 1.2-3.4 [facility] Comment on above: Performed By: #### U GRUPO, UMAC #### Testing performed at [address] [address] Lymphocytes/100 WBC (Bld) 5.9 % Low 20.0-55.0 [facility] Comment on above: Performed By: #### U GRUPO, [facility] #### Testing performed at [address] [address] Monocytes (Bld) [#/Vol] 0.5 10*3/uL Normal 0.0-0.7 [facility] Comment on above: Performed By: #### U GRUPO, UMAC #### Testing performed at [address] [address] Monocytes/100 WBC (Bld) 4.5 % Normal 0.0-10.0 [facility] Comment on above: Performed By: #### U GRUPO, [facility] #### Testing performed at [address] [address] Neutrophils/100 WBC (Bld) 89.5 % High 37.0-75.0 [facility] Comment on above: Performed By: #### U GRUPO, [facility] #### Testing performed at [address] [address] Erythrocyte distribution width (RBC) [Ratio] 14.3 % Normal 11.5-14.5 [facility] Comment on above: Performed By: #### U GRUPO, [facility]MAC #### Testing performed at [address] [address] Hematocrit (Bld) [Volume fraction] 33.3 % Low 36.0-48.0 [facility] Comment on above: Performed By: #### U GRUPO, UMAC #### Testing performed at [facility] [place] [facility] [address] [place] [address] Hemoglobin (Bld) [Mass/Vol] 10.9 g/dL Low 12.0-16.0 [facility] Comment on above: Performed By: #### U GRUPO, UMAC #### Testing performed at [address] [place] [address] MCH (RBC) [Entitic mass] 31.4 pg Normal 26.0-35.0 [facility] Comment on above: Performed By: #### U GRUPO, UMAC #### Testing performed at [address] [address] MCHC (RBC) [Mass/Vol] 32.8 g/dL Normal 27.0-37.0 [facility] Comment on above: Performed By: #### U GRUPO, [facility] #### Testing performed at [address] [address] MCV (RBC) [Entitic vol] 95.7 fL Normal 80.0-100.0 [facility] Comment on above: Performed By: #### U GRUPO, [facility] #### Testing performed at [address] [address] Platelet mean volume (Bld) [Entitic vol] 8.2 fL Normal 7.4-11.0 [facility] Comment on above: Performed By: #### U GRUPO, [facility] #### Testing performed at [address] [address] Platelets (Bld) [#/Vol] 247 10*3/uL Normal 130-400 [facility] Comment on above: Performed By: #### U GRUPO, [facility] #### Testing performed at [address] [place] [address] RBC (Bld) [#/Vol] 3.48 10*6/uL Low 4.0-5.4 [facility] Comment on above: Performed By: #### U GRUPO, [facility] #### Testing performed at [address] [address] WBC (Bld) [#/Vol] 10.5 10*3/uL Normal 3.6-11.0 [facility] Comment on above: Performed By: #### U [facility], [facility] #### Testing performed at [facility] [address] [place] [address] CBC, EDIF, PLATELETon 2023 ABSOLUTE BASOPHIL COUNT 0.0 10*3/uL 0.0 - 0.2 10*3/uL [facility] Basophils/100 WBC (Bld) 0.1 % 0.0 - 2.0 % [facility] Differential cell count method Nom (Bld) AUTO DIFF % [facility] Eosinophils (Bld) [#/Vol] 0.0 10*3/uL 0.0 - 0.7 10*3/uL [facility] Eosinophils/100 WBC (Bld) 0.0 % 0.0 - 11.0 % [facility] Erythrocyte distribution width (RBC) [Ratio] 14.3 % 11.5 - 14.5 % [facility] Hematocrit (Bld) [Volume fraction] 33.3 % Low 36.0 - 48.0 % [facility] Hemoglobin (Bld) [Mass/Vol] 10.9 g/dL Low [facility] Interpretation and review of laboratory results Abnormal [facility] Lymphocytes (Bld) [#/Vol] 0.6 10*3/uL Low 1.2 - 3.4 10*3/uL [facility] Lymphocytes/100 WBC (Bld) 5.9 % Low 20.0 - 55.0 % [facility] MCH (RBC) [Entitic mass] 31.4 pg 26.0 - 35.0 PG [facility] MCHC (RBC) [Mass/Vol] 32.8 g/dL [facility] MCV (RBC) [Entitic vol] 95.7 fL [facility] Monocytes (Bld) [#/Vol] 0.5 10*3/uL 0.0 - 0.7 10*3/uL [facility] Monocytes/100 WBC (Bld) 4.5 % 0.0 - 10.0 % [facility] Neutrophils (Bld) [#/Vol] 9.4 10*3/uL High 1.4 - 6.5 10*3/uL [facility] Neutrophils/100 WBC (Bld) 89.5 % High 37.0 - 75.0 % [facility] Platelet mean volume (Bld) [Entitic vol] 8.2 fL [facility] Platelets (Bld) [#/Vol] 247 10*3/uL 130 - 400 10*3/uL [facility] RBC (Bld) [#/Vol] 3.48 10*6/uL Low 4.0 - 5.4 10*6/uL [facility] WBC (Bld) [#/Vol] 10.5 10*3/uL 3.6 - 11.0 10*3/uL [facility] GENERAL PROCEDUREOrdered By: Vj Alvarez on 01-11-2024 [facility] Work Phone: Radiology Study observation (narrative) [facility] Work Phone: PROTIMEon 01-11-2024 INR Coag (PPP) [Relative time] 1.09 {INR} Normal 0.85-1.10 [facility] Comment on above: Result Comment: 2.0-3.0 THERAPEUTIC RANGE 2.5-3.5 MECHANICAL VALVE RANGE Performed By: #### P T #### Testing performed at [address] [address] PT Coag (PPP) [Time] 14.2 s Normal 11.8-14.4 [facility] Comment on above: Performed By: #### P T #### Testing performed at [address] [address] PROTIME-INRon 01-11-2024 INR Coag (PPP) [Relative time] 1.09 {INR} 0.85 - 1.10 [facility] Comment on above: 2.0-3.0 THERAPEUTIC RANGE 2.5-3.5 MECHANICAL VALVE RANGE PT Coag (PPP) [Time] 14.2 s [facility] REPEAT ABO/RHon 01-11-2024 REPEAT ABO/RH Positive Normal [facility] Comment on above: Performed By: #### U GRUPO, UMAC #### Testing performed at [address] [address] REPEAT ABO/RH (D) TYPINGon 0 01-11-2024 ABO and Rh group Nom (Bld ) Positive [facility] XR Pelvis 2 Viewson 06-25-20 24 Radiology Study observation (narrative) [facility] 36on 01-10-2024 36 Regarding echo from 12/29/2023: MD Amairani Corrales MA Patient echo is overall normal. Therefore she can proceed with surgery from cardiac point of view with necessary anesthesia. She is considered to be at low risk for perioperative cardiac events. Thank you Dr Kim Suarez faxed to Dr. Heredia's office. Normal [facility] Office Visiton 12-22-2023 Follow-up visit [id number] Cuate Goodman 1940 F Date Provider Department Center 12/22/2023 [id number] QUIÑONEZ YUNIOR [facility] Family History Problem Relation Age of Onset Lung cancer Mother Heart disease Father Other Father Prostate cancer Father Family Status - Relation Status Age at Mother Father Level of Service:39581 [place] OFFICE/OUTPATIENT NEW MODERATE MDM 45 MINUTES Normal [facility] URINE CULTUREon 12-18-2023 Bacteria identified Cx Nom (U) SPECIMEN DESCRIPTION URINE CLEAN CATCH UA DIPSTICK LEUKOCYTE POSITIVE * Result Note: NITRITE POSITIVE * COLONY COUNT >100,000 C/C/ML CULTURE KLEBSIELLA PNEUMONIAE * Result Note: Testing performed at [facility] [place] [address] * REPORT STATUS 12/18/2023 * Result Note: [...] CEFEPIME <=1 SUSCEPTIBLE CEFTAZIDIME <=1 SUSCEPTIBLE Normal [facility] Comment on above: Performed By: #### A URNC #### Testing performed at [address] [address] Testing performed at [address] [address] CBCon 12-16-2023 ABSOLUTE BAS 0.1 10*3/uL Normal 0.0-0.2 [facility] Comment on above: Performed By: #### U GRUPO, UMAC #### Testing performed at [address] [address] ABSOLUTE EOS 0.1 10*3/uL Normal 0.0-0.7 [facility] Comment on above: Performed By: #### U GRUPO, UMAC #### Testing performed at [address] [address] ABSOLUTE NEUTROPHIL COUNT 3.5 10*3/uL Normal 1.4-6.5 [facility] Comment on above: Performed By: #### U GRUPO, UMAC #### Testing performed at [address] [address] Basophils/100 WBC (Bld) 0.9 % Normal 0.0-2.0 [facility] Comment on above: Performed By: #### U GRUPO, UMAC #### Testing performed at [address] [address] DTYPE AUTO DIFF Normal [facility] Comment on above: Performed By: #### U GRUPO, UMAC #### Testing performed at [address] [address] Eosinophils/100 WBC (Bld) 1.8 % Normal 0.0-11.0 [facility] Comment on above: Performed By: #### U GRUPO, UMAC #### Testing performed at [address] [address] Lymphocytes (Bld) [#/Vol] 1.4 10*3/uL Normal 1.2-3.4 [facility] Comment on above: Performed By: #### U GRUPO, UMAC #### Testing performed at [address] [address] Lymphocytes/100 WBC (Bld) 25.0 % Normal 20.0-55.0 [facility] Comment on above: Performed By: #### U GRUPO, UMAC #### Testing performed at [address] [address] Monocytes (Bld) [#/Vol] 0.5 10*3/uL Normal 0.0-0.7 [facility] Comment on above: Performed By: #### U GRUPO, UMAC #### Testing performed at [address] [address] Monocytes/100 WBC (Bld) 9.1 % Normal 0.0-10.0 [facility] Comment on above: Performed By: #### U GRUPO, UMAC #### Testing performed at [address] [address] Neutrophils/100 WBC (Bld) 63.2 % Normal 37.0-75.0 [facility] Comment on above: Performed By: #### U GRUPO, UMAC #### Testing performed at [address] [address] Erythrocyte distribution width (RBC) [Ratio] 14.9 % High 11.5-14.5 [facility] Comment on above: Performed By: #### U GRUPO, UMAC #### Testing performed at [address] [address] Hematocrit (Bld) [Volume fraction] 39.2 % Normal 36.0-48.0 [facility] Comment on above: Performed By: #### U GRUPO, UMAC #### Testing performed at [address] [address] Hemoglobin (Bld) [Mass/Vol] 12.8 g/dL Normal 12.0-16.0 [facility] Comment on above: Performed By: #### U GRUPO, UMAC #### Testing performed at [address] [address] MCH (RBC) [Entitic mass] 31.1 pg Normal 26.0-35.0 [facility] Comment on above: Performed By: #### U GRUPO, UMAC #### Testing performed at [address] [address] MCHC (RBC) [Mass/Vol] 32.6 g/dL Normal 27.0-37.0 [facility] Comment on above: Performed By: #### U GRUPO, UMAC #### Testing performed at [address] [address] MCV (RBC) [Entitic vol] 95.4 fL Normal 80.0-100.0 [facility] Comment on above: Performed By: #### U GRUPO, UMAC #### Testing performed at [address] [address] Platelet mean volume (Bld) [Entitic vol] 8.8 fL Normal 7.4-11.0 [facility] Comment on above: Performed By: #### U GRUPO, UMAC #### Testing performed at [address] [address] Platelets (Bld) [#/Vol] 298 10*3/uL Normal 130-400 [facility] Comment on above: Performed By: #### U GRUPO, UMAC #### Testing performed at [address] [address] RBC (Bld) [#/Vol] 4.11 10*6/uL Normal 4.0-5.4 [facility] Comment on above: Performed By: #### U GRUPO, UMAC #### Testing performed at [address] [address] WBC (Bld) [#/Vol] 5.6 10*3/uL Normal 3.6-11.0 [facility] Comment on above: Performed By: #### U GRUPO, UMAC #### Testing performed at [address] [address] CMP FASTINGon 12-16-2023 A:G RATIO 1.3 RATIO Normal [facility] Comment on above: Performed By: #### U GRUPO, UMAC #### Testing performed at [address] [address] ALBUMIN 4.0 G/dl Normal 3.5-5.0 [facility] Comment on above: Performed By: #### U GRUPO, UMAC #### Testing performed at [address] [address] ALP [Catalytic activity/Vol] 89 U/L Normal 38-126 [facility] Comment on above: Performed By: #### U GRUPO, UMAC #### Testing performed at [address] [address] ALT [Catalytic activity/Vol] 16 U/L Normal <35 [facility] Comment on above: Performed By: #### U GRUPO, UMAC #### Testing performed at [address] [address] AST [Catalytic activity/Vol] 25 U/L Normal 14-36 [facility] Comment on above: Performed By: #### U GRUPO, UMAC #### Testing performed at [address] [address] Bilirubin [Mass/Vol] 0.3 mg/dL Normal 0.2-1.3 [facility] Comment on above: Performed By: #### U GRUPO, UMAC #### Testing performed at [address] [address] Calcium [Mass/Vol] 9.9 mg/dL Normal 8.4-10.2 [facility] Comment on above: Performed By: #### U GRUPO, UMAC #### Testing performed at [address] [address] Chloride [Moles/Vol] 107 mmol/L Normal 98-107 [facility] Comment on above: Result Comment: Shonda matthews note: Triglyceride levels of 600mg/dL or higher may positively bias chloride results by approximately 2.1 mmol Performed By: #### U GRUPO, UMAC #### Testing performed at [address] [address] CO2 [Moles/Vol] 28 mmol/L Normal 22-30 [facility] Comment on above: Performed By: #### U GRUPO, UMAC #### Testing performed at [address] [address] Creatinine [Mass/Vol] 0.80 mg/dL Normal 0.70-1.20 [facility] Comment on above: Performed By: #### U GRUPO, UMAC #### Testing performed at [address] [address] EST. GFR, 89 ml/min/1.73sq.m Normal [facility] Comment on above: Performed By: #### U GRUPO, UMAC #### Testing performed at [address] [address] EST. GFR,Non 73 ml/min/1.73sq.m Normal [facility] Comment on above: Performed By: #### U GRUPO, UMAC #### Testing performed at [address] [address] GFR Information Average GFR for 70+ years old = 75. Normal [facility] Comment on above: Result Comment: [employer] Supervisor aviva Kidney disease, GFR = <60. Kidney failure, GFR = <15. The GFR estimate is not adjusted for extreme body surface area or acute process, nor has it been validated for women or ethnic groups other than and . Performed By: #### U GRUPO, UMAC #### Testing performed at [address] [address] Glucose [Mass/Vol] 115 mg/dL High 70-100 [facility] Comment on above: Result Comment: NORMAL <100 mg/dL PREDIABETES 101-126 mg/dL DIABETES 126 mg/dL or higher Performed By: #### U GRUPO, UMAC #### Testing performed at [address] [address] Potassium [Moles/Vol] 4.0 mmol/L Normal 3.5-5.1 [facility] Comment on above: Performed By: #### U GRUPO, UMAC #### Testing performed at [address] [address] Protein [Mass/Vol] 7.2 g/dL Normal 6.3-8.2 [facility] Comment on above: Performed By: #### U GRUPO, UMAC #### Testing performed at [address] [address] Sodium [Moles/Vol] 140 mmol/L Normal 137-145 [facility] Comment on above: Performed By: #### U GRUPO, UMAC #### Testing performed at [address] [address] Urea nitrogen [Mass/Vol] 19 mg/dL Normal 7-20 [facility] Comment on above: Performed By: #### U GRUOP, UMAC #### Testing performed at [address] [address] HEMOGLOBIN A1Con 12-16-2023 Glucose [Mass/Vol] 117 mg/dL Normal [facility] Comment on above: Performed By: #### H A1CT #### Testing performed at [address] [address] HbA1c (Bld) [Mass fraction] 5.7 % Normal 0-6 [facility] Comment on above: Result Comment: NORMAL <5.7% PREDIABETES 5.7-6.4% DIABETES 6.5% OR HIGHER Performed By: #### H A1CT #### Testing performed at [address] [address] MRSA SCREENon 12-16-2023 MRSA DNA SMILEY+probe Ql (Unsp spec) Negative Normal NEGATIVE [facility] Comment on above: Performed By: #### M RSAST #### Testing performed at [address] [address] STAPH AUREUS SCREEN Positive Abnormal NEGATIVE [facility] Comment on above: Result Comment: TEST ING PERFORMED BY PCR Performed By: #### M RSAST #### Testing performed at [address] [address] PROTIMEon 12-16-2023 INR Coag (PPP) [Relative time] 1.47 {INR} High 0.85-1.10 [facility] Comment on above: Result Comment: 2.0-3.0 THERAPEUTIC RANGE 2.5-3.5 MECHANICAL VALVE RANGE Performed By: #### U GRUPO, UMAC #### Testing performed at [address] [address] PT Coag (PPP) [Time] 17.9 s High 11.8-14.4 [facility] Comment on above: Performed By: #### U GRUPO, UMAC #### Testing performed at [address] [address] TYPE AND SCREEN CROSSMATCH C ONVERTIBLEon 12-16-2023 TYPE AND SCREEN CROSSMATCH CONVERTIBLE WORKUP EXPIRES 01/13/2024,2359 ABO/RH(D) O POSITIVE ANTIBODY SCREEN NEGATIVE ARM BAND NUMBER [id number] Normal [facility] Comment on above: Performed By: #### U GRUPO, UMAC #### Testing performed at [address] [address] URINE MACROSCOPICon 12-16-19 24 Bilirubin Ql (U) Negative Normal NEGATIVE [facility] Comment on above: Performed By: #### U GRUPO, UMAC #### Testing performed at [address] [address] Clarity (U) SLIGHTLY CLOUDY Abnormal CLEAR [facility] Comment on above: Performed By: #### U GRUPO, UMAC #### Testing performed at [address] [place] [address] Color (U) YELLOW Normal YELLOW [facility] Comment on above: Performed By: #### U GRUPO, UMAC #### Testing performed at [address] [address] Glucose Ql (U) Negative Normal NEGATIVE [facility] Comment on above: Performed By: #### U GRUPO, UMAC #### Testing performed at [address] [address] pH (U) 5.5 [pH] Normal 5.0-7.0 [facility] Comment on above: Performed By: #### U GRUPO, UMAC #### Testing performed at [address] [address] Protein (U) [Mass/Vol] 30 mg/dL Abnormal NEGATIVE [facility] Comment on above: Performed By: #### U GRUPO, UMAC #### Testing performed at [address] [address] URINE HEMOGLOBIN MODERATE Abnormal NEGATIVE [facility] Comment on above: Performed By: #### U GRUPO, UMAC #### Testing performed at [address] [place] [address] URINE KETONE Negative Normal NEGATIVE [facility] Comment on above: Performed By: #### U GRUPO, UMAC #### Testing performed at [address] [address] URINE LEUKOTEST SMALL Abnormal NEGATIVE [facility] Comment on above: Performed By: #### U GRUPO, UMAC #### Testing performed at [address] [address] URINE NITRATES Positive Abnormal NEGATIVE [facility] Comment on above: Performed By: #### U GRUPO, UMAC #### Testing performed at [address] [address] URINE SPEC GRAVITY 1.025 Normal 1.010-1.025 [facility] Comment on above: Performed By: #### U GRUPO, UMAC #### Testing performed at [address] [address] Urobilinogen Qn (U) 0.2 {Monique'U}/dL Normal 0.2-1.0 [facility] Comment on above: Performed By: #### U GRUPO, UMAC #### Testing performed at [address] [address] URINE MICROSCOPICon 12-16-19 24 BACTERIA 3+ Abnormal NEGATIVE [facility] Comment on above: Performed By: #### U GRUPO, UMAC #### Testing performed at [address] [address] CASTS NONE Normal NONE [facility] Comment on above: Performed By: #### U GRUPO, UMAC #### Testing performed at [address] [address] CRYSTAL NONE Normal [facility] Comment on above: Performed By: #### U GRUPO, UMAC #### Testing performed at [address] [address] Epithelial cells LM Ql (Urine sed) 1 TO 5 Normal [facility] Comment on above: Performed By: #### U GRUPO, UMAC #### Testing performed at [address] [address] Mucus Ql (Urine sed) Negative Normal NEGATIVE [facility] Comment on above: Performed By: #### U GRUPO, UMAC #### Testing performed at [address] [address] URINE COMMENT REFLEX CULTURE PER ESTABLISHED CRITERIA. Normal [facility] Comment on above: Performed By: #### U GRUPO, UMAC #### Testing performed at [address] [address] URINE RBC'S 1 TO 5 Normal NEGATIVE [facility] Comment on above: Performed By: #### U GRUPO, UMAC #### Testing performed at [address] [place] [address] URINE WBC'S TOO NUMEROUS TO COUNT Abnormal NEGATIVE [facility] Comment on above: Performed By: #### U GRUPO, UMAC #### Testing performed at [address] [place] [address] CBC AND AUTO DIFFon 09-18-19 24 ABSOLUTE BASOPHIL 0.1 X10E9/L Normal 0.0-0.2 [facility] Comment on above: Performed By: #### C BCA, CMP, 89880-6, 84497-2, 3084-1, 3016- 3, 3024-7, 3051-0, 2284-8, 2131-9 #### [facility] ([id number]) [address], [address] [place] [address] ABSOLUTE NEUTROPHIL 4.0 X10E9/L Normal 1.5-6.6 [facility] Comment on above: Performed By: #### C BCA, CMP, 59316-6, 78194-0, 3084-1, 3016- 3, 3024-7, 3051-0, 2284-8, 2132-03 #### [facility] ([id number]) [address], [address] [place] [address] Basophils/100 WBC (Bld) 1.0 % Normal [facility] Comment on above: Performed By: #### C BCA, CMP, 52270-8, 49281-4, 3084-1, 3016- 3, 3024-7, 3051-0, 2284-8, 9 #### [facility] ([id number]) [address], [address] [place] [address] Eosinophils (Bld) [#/Vol] 0.1 10*3/uL Normal 0.0-0.4 [facility] Comment on above: Performed By: #### C BCA, CMP, 07315-1, 70438-2, 3084-1, 3016- 3, 3024-7, 3051-0, 2284-8, 2131-9 #### [facility] ([id number]) [address], [address] [place] [address] Eosinophils/100 WBC (Bld) 1.8 % Normal [facility] Comment on above: Performed By: #### C BCA, CMP, 64771-8, 11619-4, 3084-1, 3016- 3, 3024-7, 3051-0, 2284-8, 9 #### [facility] ([id number]) [address], [address] [place] [address] Erythrocyte distribution width (RBC) [Ratio] 15.2 % High 11.5-15.0 [facility] Comment on above: Performed By: #### C BCA, CMP, 01631-9, 70610-9, 3084-1, 3016- 3, 3024-7, 3051-0, 2284-8, 2132-03 #### [facility] ([id number]) [address], [address] [place] [address] Hematocrit (Bld) [Volume fraction] 36.9 % Normal 35-47 [facility] Comment on above: Performed By: #### C BCA, CMP, 27378-7, 32307-1, 3084-1, 3016- 3, 3024-7, 3051-0, 2284-8, 2132-03 #### [facility] ([id number]) [address], [address] [place] [address] Hemoglobin (Bld) [Mass/Vol] 12.3 g/dL Normal 11.7-15.5 [facility] Comment on above: Performed By: #### C BCA, CMP, 68188-4, 27018-6, 3084-1, 3016- 3, 3024-7, 3051-0, 2284-8, 2131-9 #### [facility] ([id number]) [address], [address] [place] [address] Lymphocytes (Bld) [#/Vol] 1.5 10*3/uL Normal 1.0-3.5 [facility] Comment on above: Performed By: #### C BCA, CMP, 99380-4, 70650-8, 3084-1, 3016- 3, 3024-7, 3051-0, 2284-8, 2132-03 #### [facility] ([id number]) [address], [address] [place] [address] Lymphocytes/100 WBC (Bld) 23.4 % Normal [facility] Comment on above: Performed By: #### C BCA, CMP, 51481-1, 00998-6, 3084-1, 3016- 3, 3024-7, 3051-0, 228-8, 2132-03 #### [facility] ([id number]) [address], [address] [place] [address] MCH (RBC) [Entitic mass] 30.8 pg Normal 27-34 [facility] Comment on above: Performed By: #### C BCA, CMP, 54352-7, 42112-8, 3084-1, 3016- 3, 3024-7, 3051-0, 2284-8, 2132-03 #### [facility] ([id number]) [address], [address] [place] [address] MCHC (RBC) [Mass/Vol] 33.3 g/dL Normal 32-36 [facility] Comment on above: Performed By: #### C BCA, CMP, 69984-0, 53318-5, 3084-1, 3016- 3, 3024-7, 3051-0, 2284-8, 2132-03 #### [facility] ([id number]) [address], [address] [place] [address] MCV (RBC) [Entitic vol] 93 fL Normal 80-100 [facility] Comment on above: Performed By: #### C BCA, CMP, 01736-6, 81459-5, 3084-1, 3016- 3, 3024-7, 3051-0, 2284-8, 2132-03 #### [facility] ([id number]) [address], [address] [place] [address] Monocytes (Bld) [#/Vol] 0.6 10*3/uL Normal 0-0.9 [facility] Comment on above: Performed By: #### C BCA, CMP, 46866-0, 10296-5, 3084-1, 3016- 3, 3024-7, 3051-0, 2284-8, 2132-03 #### [facility] ([id number]) [address], [address] [place] [address] Monocytes/100 WBC (Bld) 9.2 % Normal [facility] Comment on above: Performed By: #### C BCA, CMP, 74009-6, 82996-8, 3084-1, 3016- 3, 3024-7, 3051-0, 2283-8, 2132-03 #### [facility] ([id number]) [address], [address] [place] [address] Neutrophils/100 WBC (Bld) 64.6 % Normal [facility] Comment on above: Performed By: #### C BCA, CMP, 81308-8, 68436-7, 3084-1, 3016- 3, 3024-7, 3051-0, 2283-8, 2132-03 #### [facility] ([id number]) [address], [address] [place] [address] Platelet mean volume (Bld) [Entitic vol] 8.0 fL Normal 7-12 [facility] Comment on above: Performed By: #### C BCA, CMP, 19549-8, 43801-4, 3084-1, 3016- 3, 3024-7, 3051-0, 2284-8, 2132-03 #### [facility] ([id number]) [address], [address] [place] [address] Platelets (Bld) [#/Vol] 492 10*3/uL High 150-450 [facility] Comment on above: Performed By: #### C BCA, CMP, 23956-4, 77205-6, 3084-1, 3016- 3, 3024-7, 3051-0, 2284-8, 2132-03 #### [facility] ([id number]) [address], [address] [place] [address] RBC COUNT 3.99 X10E12/L Normal 3.80-5.20 [facility] Comment on above: Performed By: #### C BCA, CMP, 29428-1, 44582-2, 3084-1, 3016- 3, 3024-7, 3051-0, 228-8, 2132-03 #### [facility] ([id number]) [address], [address] [place] [address] WBC (Bld) [#/Vol] 6.2 10*3/uL Normal 4.0-11.0 [facility] Comment on above: Performed By: #### C BCA, CMP, 21447-0, 54088-8, 3084-1, 3016- 3, 3024-7, 3051-0, 228-8, 2132-03 #### [facility] ([id number]) [address] [place] [address] COMPREHENSIVE METABOLIC PANE Jarad 09-18-2023 Albumin [Mass/Vol] 3.8 g/dL Normal 3.2-5.3 [facility] Comment on above: Performed By: #### C BCA, CMP, 32588-3, 29099-7, 3084-1, 3016- 3, 3024-7, 3051-0, 2284-8, 2132-03 #### [facility] ([id number]) [address], [address] [place] [address] ALP [Catalytic activity/Vol] 92 U/L Normal 39-130 [facility] Comment on above: Performed By: #### C BCA, CMP, 81050-3, 24066-6, 3084-1, 3016- 3, 3024-7, 3051-0, 2284-8, 2131-9 #### [facility] ([id number]) [address], [address] [place] [address] ALT [Catalytic activity/Vol] 9 U/L Normal 0-31 [facility] Comment on above: Performed By: #### C BCA, CMP, 60159-2, 46776-5, 3084-1, 3016- 3, 3024-7, 3051-0, 2284-8, 2131-9 #### [facility] ([id number]) [address], [address] [place] [address] Anion gap [Moles/Vol] 9 mmol/L Normal 5-15 [facility] Comment on above: Performed By: #### C BCA, CMP, 78140-5, 86582-3, 3084-1, 3016- 3, 3024-7, 3051-0, 2284-8, 2131-9 #### [facility] ([id number]) [address], [address] [place] [address] AST [Catalytic activity/Vol] 16 U/L Normal 0-41 [facility] Comment on above: Performed By: #### C BCA, CMP, 52874-1, 40995-9, 3084-1, 3016- 3, 3024-7, 3051-0, 2284-8, 2131-9 #### [facility] ([id number]) [address], [address] [place] [address] Bilirubin [Mass/Vol] 0.5 mg/dL Normal 0.3-1.2 [facility] Comment on above: Performed By: #### C BCA, CMP, 43695-6, 73846-1, 3084-1, 3016- 3, 3024-7, 3051-0, 2284-8, 2132-03 #### [facility] ([id number]) [address], [address] [place] [address] Calcium [Mass/Vol] 9.9 mg/dL Normal 8.5-10.5 [facility] Comment on above: Performed By: #### C BCA, CMP, 97392-0, 05658-5, 3084-1, 3016- 3, 3024-7, 3051-0, 2284-8, 2132-03 #### [facility] ([id number]) [address], [address] [place] [address] Chloride [Moles/Vol] 102 mmol/L Normal 98-109 [facility] Comment on above: Performed By: #### C BCA, CMP, 92527-2, 64883-9, 3084-1, 3016- 3, 3024-7, 3051-0, 2284-8, 2132-03 #### [facility] ([id number]) [address], [address] [place] [address] CO2 [Moles/Vol] 27 mmol/L Normal 22-32 [facility] Comment on above: Performed By: #### C BCA, CMP, 87648-7, 53005-1, 3084-1, 3016- 3, 3024-7, 3051-0, 2284-8, 2132-03 #### [facility] ([id number]) [address], [address] [place] [address] Creatinine [Mass/Vol] 0.75 mg/dL Normal 0.40-1.00 [facility] Comment on above: Result Comment: METH OD TRACEABLE TO IDMS STANDARD Performed By: #### C BCA, CMP, 72954-2, 58904-6, 3084-1, 3016-3, 3024-7, 3051-0, 2284-8, 2132-9 #### [facility] ([id number]) [address], [address] [place] [address] GFR/1.73 sq M.predicted among non-blacks MDRD (S/P/Bld) [Vol rate/Area] 80 mL/min/{1.73_m2} Normal >59 [facility] Comment on above: Result Comment: Reported eGFR is based on the CKD-EPI 2020 equation that does not use a race coefficient. Performed By: #### C BCA, CMP, 14526-0, 99619-9, 3084-1, 3016-3, 3024-7, 3051-0, 2283-8, 2132-03 #### [facility] ([id number]) [address], [address] [place] [address] Glucose [Mass/Vol] 98 mg/dL Normal 65-99 [facility] Comment on above: Performed By: #### C BCA, CMP, 88335-9, 29509-2, 3084-1, 3016- 3, 3024-7, 3051-0, 2283-8, 2132-03 #### [facility] ([id number]) [address], [address] [place] [address] Potassium [Moles/Vol] 4.4 mmol/L Normal 3.5-5.0 [facility] Comment on above: Performed By: #### C BCA, CMP, 75763-2, 91474-5, 3084-1, 3016- 3, 3024-7, 3051-0, 228-8, 2132-03 #### [facility] ([id number]) [address], [address] [place] [address] Protein [Mass/Vol] 7.5 g/dL Normal 6.0-8.0 [facility] Comment on above: Performed By: #### C BCA, CMP, 16921-4, 48724-2, 3084-1, 3016- 3, 3024-7, 3051-0, 2284-8, 2132-03 #### [facility] ([id number]) [address], [address] [place] [address] Sodium [Moles/Vol] 138 mmol/L Normal 134-146 [facility] Comment on above: Performed By: #### C BCA, CMP, 69654-5, 86253-8, 3084-1, 3016- 3, 3024-7, 3051-0, 2284-8, 2132-03 #### [facility] ([id number]) [address], [address] [place] [address] Urea nitrogen [Mass/Vol] 21 mg/dL Normal 5-27 [facility] Comment on above: Performed By: #### C BCA, CMP, 17189-5, 75528-5, 3084-1, 3016- 3, 3024-7, 3051-0, 2284-8, 2132-03 #### [facility] ([id number]) [address], [address] [place] [address] FREE T3on 09-18-2023 Free T3 [Mass/Vol] 3.02 pg/mL Normal 2.50-3.90 [facility] Comment on above: Performed By: #### C BCA, CMP, 36656-3, 26988-3, 3084-1, 3016- 3, 3024-7, 3051-0, 228-8, 2132-03 #### [facility] ([id number]) [address], [address] [place] [address] FREE T4on 09-18-2023 Free T4 [Mass/Vol] 1.24 ng/dL Normal 0.61-1.60 [facility] Comment on above: Performed By: #### C BCA, CMP, 72803-3, 51807-8, 3084-1, 3016- 3, 3024-7, 3051-0, 2284-8, 2132-03 #### [facility] ([id number]) [address], [address] [place] [address] Folate [Mass/Vol]on 09-18-19 24 FOLIC ACID 16.5 ng/mL Normal >5.8 [facility] Comment on above: Result Comment: NEW REFERENCE RANGE Performed By: #### C BCA, CMP, 10866-8, 74582-6, 3084-1, 3016-3, 3024-7, 3051-0, 2284-8, 2132-03 #### [facility] ([id number]) [address], [address] [place] [address] HGB A1C (GLYCO-HGB)on 2023 Glucose [Mass/Vol] 120 mg/dL Normal [facility] Comment on above: Performed By: #### C BCA, CMP, 00871-5, 97612-5, 3084-1, 3016- 3, 3024-7, 3051-0, 228-8, 2132-03 #### [facility] ([id number]) [address], [address] [place] [address] HbA1c (Bld) [Mass fraction] 5.8 % High 4.4-5.6 [facility] Comment on above: Result Comment: NOTE ADA Guidelines Result HgbA1c Normal : less than 5.7 % Prediabetes : 5.7 % to 6.4 % Diabetes : > 6.4 % Use with caution in patients with abnormal hemoglobin variants as the half-life of red blood cells and in vivo glycation rates are affected. Performed By: #### C BCA, CMP, 44699-0, 25833-6, 3084-1, 3016-3, 3024-7, 3051-0, 2284-8, 2132-03 #### [facility] ([id number]) [address], [address] [place] [address] Lipid 1996 panelon 4 Cholesterol [Mass/Vol] 157 mg/dL Normal 150-200 [facility] Comment on above: Performed By: #### C BCA, CMP, 09881-4, 27642-4, 3084-1, 3016- 3, 3024-7, 3051-0, 2284-8, 2131-9 #### [facility] ([id number]) [address], [address] [place] [address] Cholesterol in HDL [Mass/Vol] 57 mg/dL Normal >39 [facility] Comment on above: Result Comment: HDL <40 mg/dL - High Risk HDL > or = 40mg/dL- Desirable HDL >60 mg/dL - Negative Risk Performed By: #### C BCA, CMP, 95277-9, 20761-5, 3084-1, 3016-3, 3024-7, 3051-0, 2284-8, 2131-9 #### [facility] ([id number]) [address], [address] [place] [address] Cholesterol in LDL [Mass/Vol] 79 mg/dL Normal <130 [facility] Comment on above: Result Comment: LDL <100 mg/dL - Desirable LDL >160 mg/dL - High Risk Performed By: #### C BCA, CMP, 07027-3, 96529-2, 3084-1, 3016-3, 3024-7, 3051-0, 2284-8, 2131-9 #### [facility] ([id number]) [address], [address] [place] [address] Cholesterol in VLDL [Mass/Vol] 21 mg/dL Normal 0-30 [facility] Comment on above: Performed By: #### C BCA, CMP, 29877-6, 00751-9, 3084-1, 3016- 3, 3024-7, 3051-0, 2284-8, 2132-03 #### [facility] ([id number]) [address], [address] [place] [address] CHOLESTEROL:HDL 2.8 Normal 1.0-5.0 [facility] Comment on above: Performed By: #### C BCA, CMP, 76787-5, 47316-6, 3084-1, 3016- 3, 3024-7, 3051-0, 2284-8, 2132-03 #### [facility] ([id number]) [address] [place] [address] Triglyceride [Mass/Vol] 104 mg/dL Normal 27-150 [facility] Comment on above: Performed By: #### C BCA, CMP, 66865-6, 39248-2, 3084-1, 3016- 3, 3024-7, 3051-0, 2284-8, 2132-03 #### [facility] ([id number]) [address], [address] [place] [address] MAGNESIUMon 09-18-2023 Magnesium [Mass/Vol] 1.7 mg/dL Low 1.8-2.6 [facility] Comment on above: Performed By: #### C BCA, CMP, 39321-5, 92280-6, 3084-1, 3016- 3, 3024-7, 3051-0, 2284-8, 2132-03 #### [facility] ([id number]) [address], [address] [place] [address] TSH Qnon 09-18-2023 TSH 2.26 uIU/mL Normal 0.49-4.67 [facility] Comment on above: Performed By: #### C BCA, CMP, 44813-5, 79078-1, 3084-1, 3016- 3, 3024-7, 3051-0, 2284-8, 2132-9 #### [facility] ([id number]) [address], [address] [place] [address] URIC ACIDon 09-18-2023 Urate [Mass/Vol] 5.8 mg/dL Normal 2.6-7.2 [facility] Comment on above: Performed By: #### C BCA, CMP, 31626-6, 90481-2, 3084-1, 3016- 3, 3024-7, 3051-0, 2283-8, 2132-03 #### [facility] ([id number]) [address], [address] [place] [address] VITAMIN B12on 09-18-2023 Cobalamin (Vitamin B12) [Mass/Vol] pg/mL High 180-914 [facility] Comment on above: Performed By: #### C BCA, CMP, 09469-4, 41079-0, 3084-1, 3016- 3, 3024-7, 3051-0, 2283-8, 2132-03 #### [facility] ([id number]) [address] [place] [address] XR KNEE LT 3 VWSon 4 XR [...] Marquis MD on 09/18/2023 12:15 PM Normal [facility] CBC AUTO DIFFon 11-11-2022 BASO # 0.0 103/ul Normal 0.0-0.1 [facility] Comment on above: Performed By: #### U BRENT #### [facility] [address] [address] [address] Brandi Abarca Basophils/100 WBC (Bld) 0.5 % Normal 0.2-2.0 [facility] Comment on above: Performed By: #### U BRENT #### [facility] [address] [place] [address] Dr. Brandi Abarca EO # 0.2 103/ul Normal 0.0-0.7 [facility] Comment on above: Performed By: #### U RBENT #### [facility] [address] [place] [address] Dr. Brandi Abarca Eosinophils/100 WBC (Bld) 3.0 % Normal 0.9-7.0 [facility] Comment on above: Performed By: #### U BRENT #### [facility] [address] [place] [address] Dr. Brandi Abarca Erythrocyte distribution width (RBC) [Ratio] 13.6 % Normal 11.0-15.0 [facility] Comment on above: Performed By: #### U BRENT #### [facility] [address] [place] [address] Dr. Brandi Abarca Hematocrit (Bld) [Volume fraction] 34.4 % Critically low 36.0-48.0 [facility] Comment on above: Performed By: #### U BRENT #### [facility] [address] [place] [address] Dr. Brandi Abarca Hemoglobin (Bld) [Mass/Vol] 10.6 g/dL Critically low 12.0-16.0 [facility] Comment on above: Performed By: #### U BRENT #### [facility] [address] [place] [address] Dr. Brandi Abarca IG # 0.02 10e3/ul Normal 0.00-0.03 [facility] Comment on above: Performed By: #### U BRENT #### [facility] [address] [place] [address] Dr. Brandi Abarca IG % 0.3 % Normal 0.0-0.5 [facility] Comment on above: Performed By: #### U BRENT #### [facility] [address] [place] [address] Dr. Brandi Abarca LYMPH # 1.2 103/ul Normal 1.2-3.8 [facility] Comment on above: Performed By: #### U BRENT #### [facility] [address] [address] [address] Brandi Abarca Lymphocytes/100 WBC (Bld) 20.4 % Critically low 20.5-60.0 [facility] Comment on above: Performed By: #### U BRENT #### [facility] [address] [address] [address] Brandi Abarca MANUAL DIFF REQ NO Normal [facility] Comment on above: Performed By: #### U BRENT #### [facility] [address] [address] [address] Brandi Abacra MCH (RBC) [Entitic mass] 30.5 pg Normal 26.7-34.0 [facility] Comment on above: Performed By: #### U BRENT #### [facility] [address] [place] [address] Dr. Brandi Abarca MCHC (RBC) [Mass/Vol] 30.8 g/dL Normal 29.9-35.2 [facility] Comment on above: Performed By: #### U BRENT #### [facility] [address] [place] [address] Dr. Brandi Abarca MCV (RBC) [Entitic vol] 99.1 fL Critically high 81.0-99.0 [facility] Comment on above: Performed By: #### U BRENT #### [facility] [address] [place] [address] Dr. Brandi Abarca MONO # 0.7 103/ul Normal 0.3-0.8 [facility] Comment on above: Performed By: #### U BRENT #### [facility] [address] [address] [address] Brandi Abarca Monocytes/100 WBC (Bld) 12.0 % Normal 1.7-12.0 [facility] Comment on above: Performed By: #### U BRENT #### [facility] [address] [place] [address] Dr. Brandi Abarca NEUT # 3.8 103/ul Normal 1.4-6.5 [facility] Comment on above: Performed By: #### U BRENT #### [facility] [address] [address] [address] Brandi Abarca Neutrophils/100 WBC (Bld) 63.8 % Normal 43.0-75.0 [facility] Comment on above: Performed By: #### U BRENT #### [facility] [address] [address] [address] Brandi Abarca Platelet mean volume (Bld) [Entitic vol] 11.5 fL Normal 9.5-13.5 [facility] Comment on above: Performed By: #### U BRENT #### [facility] [address] [address] [address] Brandi Abarca PLT 212 103/ul Normal 150-450 [facility] Comment on above: Performed By: #### U BRENT #### [facility] [address] [place] [address] Dr. Brandi Abarca RBC 3.47 106/ul Critically low 4.20-5.40 [facility] Comment on above: Performed By: #### U BRENT #### [facility] [address] [address] [address] Brandi Abarca WBC 5.9 103/ul Normal 4.0-11.0 [facility] Comment on above: Performed By: #### U BRENT #### [facility] [address] [place] [address] Dr. Brandi Abarca GLYCOHEMOGLOBIN A1Con 2022 ADA RECOMMENDATION SEE BELOW Normal [facility] Comment on above: Result Comment: ADA RECOMMENDED LIMIT 4.0 - 6.0 ADA THERAPEUTIC TARGET < 7.0 ACTION SUGGESTED > 7.0 Performed By: #### A 1C #### [facility] [address] [address] [address] Brandi Abarca Glucose [Mass/Vol] 114 mg/dL Normal [facility] Comment on above: Performed By: #### A 1C #### [facility] [address] [place] [address] Dr. Brandi Abarca HbA1c (Bld) [Mass fraction] 5.6 % Normal 4.5-6.2 [facility] Comment on above: Performed By: #### A 1C #### [facility] [address] [place] [address] Dr. Brandi Abarca MAGNESIUMon 11-11-2022 Magnesium [Mass/Vol] 1.6 mg/dL Critically low 1.8-2.4 [facility] Comment on above: Performed By: #### U BRENT #### [facility] [address] [place] [address] Dr. Brandi Abarca PROF 14(COMP METB)on 023 Albumin [Mass/Vol] 2.4 g/dL Critically low 3.4-5.0 [facility] Comment on above: Performed By: #### U BRENT #### [facility] [address] [place] [address] Dr. Brandi Abarca Albumin/Globulin [Mass ratio] 0.6 {ratio} Normal [facility] Comment on above: Performed By: #### U BRENT #### [facility] [address] [place] [address] Dr. Brandi Abarca ALP [Catalytic activity/Vol] 82 U/L Normal 46-116 [facility] Comment on above: Performed By: #### U BRENT #### [facility] [address] [place] [address] Dr. Brandi Abarca ALT [Catalytic activity/Vol] 14 U/L Normal 14-59 [facility] Comment on above: Performed By: #### U BRENT #### [facility] [address] [place] [address] Dr. Brandi Abarca Anion gap [Moles/Vol] 9.6 mmol/L Normal [facility] Comment on above: Performed By: #### U BRENT #### [facility] [address] [place] [address] Dr. Brandi Abarca AST [Catalytic activity/Vol] 14 U/L Critically low 15-37 [facility] Comment on above: Performed By: #### U BRENT #### [facility] [address] [place] [address] Dr. Brandi Abarca Bilirubin [Mass/Vol] 0.2 mg/dL Normal 0.2-1.0 [facility] Comment on above: Performed By: #### U BRENT #### [facility] [address] [address] [address] Brandi Abarca Calcium [Mass/Vol] 8.6 mg/dL Normal 8.5-10.1 [facility] Comment on above: Performed By: #### U BRENT #### [facility] [address] [address] [address] Brandi Abarca Chloride [Moles/Vol] 103 mmol/L Normal 98-107 [facility] Comment on above: Performed By: #### U BRENT #### [facility] [address] [address] [address] Brandi Abarca CO2 [Moles/Vol] 29.6 mmol/L Normal 21.0-32.0 [facility] Comment on above: Performed By: #### U BRENT #### [facility] [address] [place] [address] Dr. Brandi Abarca Creatinine [Mass/Vol] 0.90 mg/dL Normal 0.55-1.02 [facility] Comment on above: Performed By: #### U BRENT #### [facility] [address] [place] [address] Dr. Brandi Abarca EGFR-AF MALTESE >60 Normal >=60 [facility] Comment on above: Performed By: #### U BRENT #### [facility] [address] [place] [address] Dr. Brandi Abarca EGFR-NON AF MALTESE 60 mL/min/1.73m2 Normal >=60 [facility] Comment on above: Performed By: #### U BRENT #### [facility] [address] [place] [address] Dr. Brandi Abarca Globulin (S) [Mass/Vol] 3.9 g/dL Normal [facility] Comment on above: Performed By: #### U BRENT #### [facility] [address] [place] [address] Dr. Brandi Abarca Glucose [Mass/Vol] 113 mg/dL Critically high 74-106 [facility] Comment on above: Performed By: #### U BRENT #### [facility] [address] [address] [address] Brandi Abarca Potassium [Moles/Vol] 4.2 mmol/L Normal 3.5-5.1 [facility] Comment on above: Performed By: #### U BRENT #### [facility] [address] [place] [address] Dr. Brandi Abarca Protein [Mass/Vol] 6.3 g/dL Critically low 6.4-8.2 [facility] Comment on above: Performed By: #### U BRENT #### [facility] [address] [place] [address] Dr. Brandi Abarca Sodium [Moles/Vol] 138 mmol/L Normal 136-145 [facility] Comment on above: Performed By: #### U BRENT #### [facility] [address] [place] [address] Dr. Brandi Abarca Urea nitrogen [Mass/Vol] 14.0 mg/dL Normal 7.0-18.0 [facility] Comment on above: Performed By: #### U BRENT #### [facility] [address] [place] [address] Dr. Brandi Abarca Urea nitrogen/Creatinine [Mass ratio] 15.6 mg/mg Normal [facility] Comment on above: Performed By: #### U BRENT #### [facility] [address] [place] [address] Dr. Brandi Abarca CBC AUTO DIFFon 11-10-2022 BASO # 0.0 103/ul Normal 0.0-0.1 [facility] Comment on above: Performed By: #### A 1C #### [facility] [address] [place] [address] Dr. Brandi Abarca Basophils/100 WBC (Bld) 0.3 % Normal 0.2-2.0 [facility] Comment on above: Performed By: #### A 1C #### [facility] [address] [place] [address] Dr. Brandi Abarca EO # 0.0 103/ul Normal 0.0-0.7 [facility] Comment on above: Performed By: #### A 1C #### [facility] [address] [place] [address] Dr. Brandi Abarca Eosinophils/100 WBC (Bld) 0.3 % Critically low 0.9-7.0 [facility] Comment on above: Performed By: #### A 1C #### [facility] [address] [place] [address] Dr. Brandi Abarca Erythrocyte distribution width (RBC) [Ratio] 13.7 % Normal 11.0-15.0 [facility] Comment on above: Performed By: #### A 1C #### [facility] [address] [place] [address] Dr. Brandi Abarca Hematocrit (Bld) [Volume fraction] 36.3 % Normal 36.0-48.0 [facility] Comment on above: Performed By: #### A 1C #### [facility] [address] [place] [address] Dr. Brandi Abarca Hemoglobin (Bld) [Mass/Vol] 11.3 g/dL Critically low 12.0-16.0 [facility] Comment on above: Performed By: #### A 1C #### [facility] [address] [place] [address] Dr. Brandi Abarca IG # 0.03 10e3/ul Normal 0.00-0.03 [facility] Comment on above: Performed By: #### A 1C #### [facility] [address] [place] [address] Dr. Brandi Abarca IG % 0.4 % Normal 0.0-0.5 [facility] Comment on above: Performed By: #### A 1C #### [facility] [address] [place] [address] Dr. Brandi Abarca LYMPH # 1.1 103/ul Critically low 1.2-3.8 [facility] Comment on above: Performed By: #### A 1C #### [facility] [address] [place] [address] Dr. Brandi Abarca Lymphocytes/100 WBC (Bld) 15.1 % Critically low 20.5-60.0 [facility] Comment on above: Performed By: #### A 1C #### [facility] [address] [place] [address] Dr. Brandi Abarca MANUAL DIFF REQ NO Normal [facility] Comment on above: Performed By: #### A 1C #### [facility] [address] [place] [address] Dr. Brandi Abarca MCH (RBC) [Entitic mass] 30.6 pg Normal 26.7-34.0 [facility] Comment on above: Performed By: #### A 1C #### [facility] [address] [place] [address] Dr. Brandi Abarca MCHC (RBC) [Mass/Vol] 31.1 g/dL Normal 29.9-35.2 [facility] Comment on above: Performed By: #### A 1C #### [facility] [address] [place] [address] Dr. Brandi Abarca MCV (RBC) [Entitic vol] 98.4 fL Normal 81.0-99.0 [facility] Comment on above: Performed By: #### A 1C #### [facility] [address] [place] [address] Dr. Brandi Abarca MONO # 0.9 103/ul Critically high 0.3-0.8 [facility] Comment on above: Performed By: #### A 1C #### [facility] [address] [place] [address] Dr. Brandi Abarca Monocytes/100 WBC (Bld) 11.6 % Normal 1.7-12.0 [facility] Comment on above: Performed By: #### A 1C #### [facility] [address] [place] [address] Dr. Brandi Abarca NEUT # 5.5 103/ul Normal 1.4-6.5 [facility] Comment on above: Performed By: #### A 1C #### [facility] [address] [place] [address] Dr. Brandi Abarca Neutrophils/100 WBC (Bld) 72.3 % Normal 43.0-75.0 [facility] Comment on above: Performed By: #### A 1C #### [facility] [address] [place] [address] Dr. Brandi Abarca Platelet mean volume (Bld) [Entitic vol] 9.8 fL Normal 9.5-13.5 [facility] Comment on above: Performed By: #### A 1C #### [facility] [address] [address] [address] Brandi Abarca PLT 211 103/ul Normal 150-450 [facility] Comment on above: Performed By: #### A 1C #### [facility] [address] [address] [address] Brandi Abarca RBC 3.69 106/ul Critically low 4.20-5.40 [facility] Comment on above: Performed By: #### A 1C #### [facility] [address] [address] [address] Brandi Abarca WBC 7.5 103/ul Normal 4.0-11.0 [facility] Comment on above: Performed By: #### A 1C #### [facility] [address] [place] [address] Dr. Brandi Abarca ECHOCARDIO M/2D COMPLETEon 0 11-10-2022 ECHOCARDIO M/2D COMPLETE Patient: CUATE GOODMAN Exam Date: 11/10/2022 : 1940 Gender:F Ordering : SELINA POSADAS . Admission #: [id number] Family : Order #: [id number] CLICK HERE TO VIEW EXAM ECHOCARDIOGRAM REPORT [...] Moore M.D. on 11/11/2022 at 10:13 Normal [facility] GLYCOHEMOGLOBIN A1Con 2022 ADA RECOMMENDATION SEE BELOW Normal [facility] Comment on above: Result Comment: ADA RECOMMENDED LIMIT 4.0 - 6.0 ADA THERAPEUTIC TARGET < 7.0 ACTION SUGGESTED > 7.0 Performed By: #### U BRENT #### [facility] [address] [place] [address] Dr. Brandi Abarca Glucose [Mass/Vol] 120 mg/dL Normal [facility] Comment on above: Performed By: #### U BRENT #### [facility] [address] [place] [address] Dr. Brandi Abarca HbA1c (Bld) [Mass fraction] 5.8 % Normal 4.5-6.2 [facility] Comment on above: Performed By: #### U BRENT #### [facility] [address] [place] [address] Dr. Brandi Abarca MAGNESIUMon 11-10-2022 Magnesium [Mass/Vol] 1.6 mg/dL Critically low 1.8-2.4 [facility] Comment on above: Performed By: #### A 1C #### [facility] [address] [place] [address] Dr. Brandi Abarca PROF 14(COMP METB)on 023 Albumin [Mass/Vol] 2.6 g/dL Critically low 3.4-5.0 [facility] Comment on above: Performed By: #### U BRENT #### [facility] [address] [place] [address] Dr. Brandi Abarca Albumin/Globulin [Mass ratio] 0.7 {ratio} Normal [facility] Comment on above: Performed By: #### U BRENT #### [facility] [address] [place] [address] Dr. Brandi Abarca ALP [Catalytic activity/Vol] 84 U/L Normal 46-116 [facility] Comment on above: Performed By: #### U BRENT #### [facility] [address] [place] [address] Dr. Brandi Abarca ALT [Catalytic activity/Vol] 16 U/L Normal 14-59 [facility] Comment on above: Performed By: #### U BRENT #### [facility] [address] [place] [address] Dr. Brandi Abarca Anion gap [Moles/Vol] 5.4 mmol/L Normal [facility] Comment on above: Performed By: #### U BRENT #### [facility] [address] [place] [address] Dr. Brandi Abarca AST [Catalytic activity/Vol] 15 U/L Normal 15-37 [facility] Comment on above: Performed By: #### U BRENT #### [facility] [address] [place] [address] Dr. Brandi Abarca Bilirubin [Mass/Vol] 0.5 mg/dL Normal 0.2-1.0 [facility] Comment on above: Performed By: #### U BRENT #### [facility] [address] [place] [address] Dr. Brandi Abarca Calcium [Mass/Vol] 8.8 mg/dL Normal 8.5-10.1 [facility] Comment on above: Performed By: #### U BRENT #### [facility] [address] [place] [address] Dr. Brandi Abarca Chloride [Moles/Vol] 101 mmol/L Normal 98-107 [facility] Comment on above: Performed By: #### U BRENT #### [facility] [address] [address] [address] Brandi Abarca CO2 [Moles/Vol] 33.4 mmol/L Critically high 21.0-32.0 [facility] Comment on above: Performed By: #### U BRENT #### [facility] [address] [address] [address] Brandi Abarca Creatinine [Mass/Vol] 0.85 mg/dL Normal 0.55-1.02 [facility] Comment on above: Performed By: #### U BRENT #### [facility] [address] [place] [address] Dr. Brandi Abarca EGFR-AF MALTESE >60 Normal >=60 [facility] Comment on above: Performed By: #### U BRENT #### [facility] [address] [address] [address] Brandi Abarca EGFR-NON AF MALTESE >60 Normal >=60 [facility] Comment on above: Performed By: #### U BRENT #### [facility] [address] [address] [address] Brandi Abarca Globulin (S) [Mass/Vol] 3.9 g/dL Normal [facility] Comment on above: Performed By: #### U BRENT #### [facility] [address] [address] [address] Brandi Abarca Glucose [Mass/Vol] 116 mg/dL Critically high 74-106 [facility] Comment on above: Performed By: #### U BRENT #### [facility] [address] [place] [address] Dr. Brandi Abarca Potassium [Moles/Vol] 3.8 mmol/L Normal 3.5-5.1 [facility] Comment on above: Performed By: #### U BRENT #### [facility] [address] [place] [address] Dr. Brandi Abarca Protein [Mass/Vol] 6.5 g/dL Normal 6.4-8.2 [facility] Comment on above: Performed By: #### U BRENT #### [facility] [address] [place] [address] Dr. Brandi Abarca Sodium [Moles/Vol] 136 mmol/L Normal 136-145 [facility] Comment on above: Performed By: #### U BRENT #### [facility] [address] [place] [address] Dr. Brandi Abarca Urea nitrogen [Mass/Vol] 12.0 mg/dL Normal 7.0-18.0 [facility] Comment on above: Performed By: #### U BRENT #### [facility] [address] [place] [address] Dr. Brandi Abarca Urea nitrogen/Creatinine [Mass ratio] 14.1 mg/mg Normal [facility] Comment on above: Performed By: #### U BRENT #### [facility] [address] [place] [address] Dr. Brandi Abarca PTT HEPARIN MONITORon 2022 aPTT Coag (Bld) [Time] 48.7 s Normal 39.5-54.2 [facility] Comment on above: Performed By: #### P TTHEP #### [facility] [address] [place] [address] Dr. Brandi Abarca aPTT Coag (Bld) [Time] 56.6 s Critically high 39.5-54.2 [facility] Comment on above: Performed By: #### A 1C #### [facility] [address] [place] [address] Dr. Brandi Abarca aPTT Coag (Bld) [Time] 51.4 s Normal 39.5-54.2 [facility] Comment on above: Performed By: #### P TTHEP #### [facility] [address] [place] [address] Dr. Brandi Abarca BNPon 11-09-2022 Natriuretic peptide B (Bld) [Mass/Vol] 1702.0 pg/mL Normal <=1,800.0 [facility] Comment on above: Performed By: #### U BRENT #### [facility] [address] [address] [address] Brandi Abarca Natriuretic peptide B (Bld) [Mass/Vol] 1702.0 pg/mL Normal <=1,800.0 [facility] Comment on above: Performed By: #### H STROPN, BNP, BMP #### [facility] [address] [place] [address] Dr. Brandi Abarca CBC AUTO DIFFon 11-09-2022 BASO # 0.0 103/ul Normal 0.0-0.1 [facility] Comment on above: Performed By: #### A 1C #### [facility] [address] [place] [address] Dr. Brandi Abarca Basophils/100 WBC (Bld) 0.4 % Normal 0.2-2.0 [facility] Comment on above: Performed By: #### A 1C #### [facility] [address] [place] [address] Dr. Brandi Abarca EO # 0.2 103/ul Normal 0.0-0.7 [facility] Comment on above: Performed By: #### A 1C #### [facility] [address] [place] [address] Dr. Brandi Abarca Eosinophils/100 WBC (Bld) 1.8 % Normal 0.9-7.0 [facility] Comment on above: Performed By: #### A 1C #### [facility] [address] [place] [address] Dr. Brandi Abarca Erythrocyte distribution width (RBC) [Ratio] 13.6 % Normal 11.0-15.0 [facility] Comment on above: Performed By: #### A 1C #### [facility] [address] [place] [address] Dr. Brandi Abarca Hematocrit (Bld) [Volume fraction] 38.2 % Normal 36.0-48.0 [facility] Comment on above: Performed By: #### A 1C #### [facility] [address] [place] [address] Dr. Brandi Abarca Hemoglobin (Bld) [Mass/Vol] 12.2 g/dL Normal 12.0-16.0 [facility] Comment on above: Performed By: #### A 1C #### [facility] [address] [place] [address] Dr. Brandi Abarca IG # 0.02 10e3/ul Normal 0.00-0.03 [facility] Comment on above: Performed By: #### A 1C #### [facility] [address] [place] [address] Dr. Brandi Abarca IG % 0.2 % Normal 0.0-0.5 [facility] Comment on above: Performed By: #### A 1C #### [facility] [address] [place] [address] Dr. Brandi Abarca LYMPH # 1.3 103/ul Normal 1.2-3.8 [facility] Comment on above: Performed By: #### A 1C #### [facility] [address] [place] [address] Dr. Brandi Abarca Lymphocytes/100 WBC (Bld) 15.4 % Critically low 20.5-60.0 [facility] Comment on above: Performed By: #### A 1C #### [facility] [address] [place] [address] Dr. Brandi Abarca MANUAL DIFF REQ NO Normal [facility] Comment on above: Performed By: #### A 1C #### [facility] [address] [place] [address] Dr. Brandi Abarca MCH (RBC) [Entitic mass] 30.7 pg Normal 26.7-34.0 [facility] Comment on above: Performed By: #### A 1C #### [facility] [address] [place] [address] Dr. Brandi Abarca MCHC (RBC) [Mass/Vol] 31.9 g/dL Normal 29.9-35.2 [facility] Comment on above: Performed By: #### A 1C #### [facility] [address] [place] [address] Dr. Brandi Abarca MCV (RBC) [Entitic vol] 96.0 fL Normal 81.0-99.0 [facility] Comment on above: Performed By: #### A 1C #### [facility] [address] [place] [address] Dr. Brandi Aabrca MONO # 0.7 103/ul Normal 0.3-0.8 [facility] Comment on above: Performed By: #### A 1C #### [facility] [address] [place] [address] Dr. Brandi Abarca Monocytes/100 WBC (Bld) 8.6 % Normal 1.7-12.0 [facility] Comment on above: Performed By: #### A 1C #### [facility] [address] [place] [address] Dr. Brandi Abarca NEUT # 6.0 103/ul Normal 1.4-6.5 [facility] Comment on above: Performed By: #### A 1C #### [facility] [address] [place] [address] Dr. Brandi Abarca Neutrophils/100 WBC (Bld) 73.6 % Normal 43.0-75.0 [facility] Comment on above: Performed By: #### A 1C #### [facility] [address] [place] [address] Dr. Brandi Abarca Platelet mean volume (Bld) [Entitic vol] 9.8 fL Normal 9.5-13.5 [facility] Comment on above: Performed By: #### A 1C #### [facility] [address] [place] [address] Dr. Brandi Abarca PLT 234 103/ul Normal 150-450 [facility] Comment on above: Performed By: #### A 1C #### [facility] [address] [place] [address] Dr. Brandi Abarca RBC 3.98 106/ul Critically low 4.20-5.40 [facility] Comment on above: Performed By: #### A 1C #### [facility] [address] [place] [address] Dr. Brandi Abarca WBC 8.1 103/ul Normal 4.0-11.0 [facility] Comment on above: Performed By: #### A 1C #### [facility] [address] [place] [address] Dr. Brandi Abarca CTA CHEST WO W CONon 023 CTA CHEST WO W CON EXAMINATION: [...] EYAD FREITAS Date: 2022-11-09 08:23 Normal [facility] Covid-19 PCR (CVDTB)on 10-18 SARS-CoV-2 (COVID-19) RNA SMILEY+probe Ql (Unsp spec) Not detected Normal NOT DETECTED [facility] Comment on above: Result Comment: This test is not yet approved or cleared by the [place] FDA. When there are no FDA-approved or cleared tests available, and other criteria are met, FDA can make tests available under an emergency access mechanism called an Emergency Use Authorization (EUA). The EUA for this test is supported by the Consumer Loan Manager of Health and Human Service's (HHS's) declaration [...] consistent with SARS-CoV-2. Performed By: #### C VDTBH #### [facility] [address] [place] [address] Dr. Brandi Abarca PROF CHEM 8 (BAS METB)on Anion gap [Moles/Vol] 12.2 mmol/L Normal [facility] Comment on above: Performed By: #### H STROPN, BNP, BMP #### [facility] [address] [place] [address] Dr. Brandi Abarca Calcium [Mass/Vol] 9.0 mg/dL Normal 8.5-10.1 [facility] Comment on above: Performed By: #### H STROPN, BNP, BMP #### [facility] [address] [place] [address] Dr. Brandi Abarca Chloride [Moles/Vol] 103 mmol/L Normal 98-107 [facility] Comment on above: Performed By: #### H STROPN, BNP, BMP #### [facility] [address] [place] [address] Dr. Brandi Abarca CO2 [Moles/Vol] 30.6 mmol/L Normal 21.0-32.0 [facility] Comment on above: Performed By: #### H STROPN, BNP, BMP #### [facility] [address] [place] [address] Dr. Brandi Abarca Creatinine [Mass/Vol] 0.89 mg/dL Normal 0.55-1.02 [facility] Comment on above: Performed By: #### H STROPN, BNP, BMP #### [facility] [address] [place] [address] Dr. Brandi Abarca EGFR-AF MALTESE >60 Normal >=60 [facility] Comment on above: Performed By: #### H STROPN, BNP, BMP #### [facility] [address] [place] [address] Dr. Brandi Abarca EGFR-NON AF MALTESE >60 Normal >=60 [facility] Comment on above: Performed By: #### H STROEMILIA, BNP, BMP #### [facility] [address] [address] [address] Brandi Abarca Glucose [Mass/Vol] 102 mg/dL Normal 74-106 [facility] Comment on above: Performed By: #### H KAREY, BNP, BMP #### [facility] [address] [address] [address] Brandi Abarca Potassium [Moles/Vol] 3.8 mmol/L Normal 3.5-5.1 [facility] Comment on above: Performed By: #### H KAREY, BNP, BMP #### [facility] [address] [place] [address] Dr. Brandi Abarca Sodium [Moles/Vol] 142 mmol/L Normal 136-145 [facility] Comment on above: Performed By: #### H KAREY, BNP, BMP #### [facility] [address] [place] [address] Dr. Brandi Abarca Urea nitrogen [Mass/Vol] 16.0 mg/dL Normal 7.0-18.0 [facility] Comment on above: Performed By: #### H KAREY, BNP, BMP #### [facility] [address] [place] [address] Dr. Brandi Abarca Urea nitrogen/Creatinine [Mass ratio] 18.0 mg/mg Normal [facility] Comment on above: Performed By: #### H STROEMILIA, BNP, BMP #### [facility] [address] [place] [address] Dr. Brandi Abarca PROTIMEon 11-09-2022 INR Coag (PPP) [Relative time] 1.00 {INR} Normal [facility] Comment on above: Performed By: #### A 1C #### [facility] [address] [place] [address] Dr. Brandi Abarca INR GUIDELINES SEE BELOW Normal [facility] Comment on above: Result Comment: NOVA RED INR: 2.0 - 3.0 CONDITIONS NOT LISTED BELOW 2.5 - 3.5 FOR PROSTHETIC HEART VALVE REPLACEMENT 2.5 - 3.5 RECURRENT THROMBOSIS Performed By: #### A 1C #### [facility] [address] [place] [address] Dr. Brandi Abarca PT Coag (PPP) [Time] 10.6 s Normal 9.0-11.6 [facility] Comment on above: Performed By: #### A 1C #### [facility] [address] [place] [address] Dr. Brandi Abarca PTTon 11-09-2022 aPTT Coag (Bld) [Time] 24.3 s Normal 22.3-36.2 [facility] Comment on above: Performed By: #### A 1C #### [facility] [address] [place] [address] Dr. Brandi Abarca PTT HEPARIN MONITORon 2022 aPTT Coag (Bld) [Time] 47.3 s Normal 39.5-54.2 [facility] Comment on above: Performed By: #### U BRENT #### [facility] [address] [place] [address] Dr. Brandi Abarca SYMPTOMATIC COVID-19 ANTIGEN on 11-09-2022 EUA Statement SEE BELOW Normal [facility] Comment on above: Result Comment: This [...] sooner. Performed By: #### C VDAGS #### [facility] [address] [place] [address] Dr. Brandi Abarca SARS-CoV-2 (COVID-19) RNA SMILEY+probe Ql (Unsp spec) Negative Normal NEGATIVE [facility] Comment on above: Performed By: #### C VDAGS #### [facility] [address] [place] [address] Dr. Brandi Abarca TROPONIN, HIGH SENSITIVITYon 11-09-2022 HSTROP 15.6 pg/mL Normal 4.0-51.3 [facility] Comment on above: Result Comment: CUT- OFF POINTS HAVE BEEN ESTABLISHED BASED ON THE FOURTH UNIVERSAL DEFINITIONS OF MYOCARDIAL INFARCTION. THE UPPER REFERENCE LIMIT (URL) OF TROPONIN, DEFINED THE 99TH PERCENTILE OF cTnI DISTRIBUTION IN A REFERENCE POPULATION, HAS BEEN CONFIRMED THE DECISION THRESHOLD FOR DC DIAGNOSIS. Performed By: #### H STROPN #### [facility] [address] [place] [address] Dr. Brandi Abarca HSTROP 16.4 pg/mL Normal 4.0-51.3 [facility] Comment on above: Result Comment: CUT- OFF POINTS HAVE BEEN ESTABLISHED BASED ON THE FOURTH UNIVERSAL DEFINITIONS OF MYOCARDIAL INFARCTION. THE UPPER REFERENCE LIMIT (URL) OF TROPONIN, DEFINED THE 99TH PERCENTILE OF cTnI DISTRIBUTION IN A REFERENCE POPULATION, HAS BEEN CONFIRMED THE DECISION THRESHOLD FOR DC DIAGNOSIS. Performed By: #### H EDVINPN, BNP, BMP #### [facility] [address] [place] [address] Dr. Brandi Abarca URIC ACID SERUMon 11-09-2022 Urate [Mass/Vol] 4.4 mg/dL Normal 2.6-6.0 [facility] Comment on above: Performed By: #### U BRENT #### [facility] [address] [place] [address] Dr. Brandi Abarca XR CHEST 1 Von [...] by: KIMBER MALLOY Date: 2022-11-09 07:22 Normal [facility] Vital Signs Date Time Vital Sign Value Performing Clinician Facility 07-28-2024 09:56-0500 Blood Pressure Location Cyn Lue [facility] 07-28-2024 09:56-0500 Diastolic blood pressure 71 mm[Hg] Cyn L[facility] 07-28-2024 09:56-0500 Heart rate 84 /min Cyn L[facility] [place] 07-28-2024 09:56-0500 Systolic blood pressure 122 mm[Hg] Cyn L[facility] [place] 03-16-2024 15:27-0400 Body height 162.6 cm Aveamalia Mackey [employer] SHAKER-SCHEDULING ASSISTANT Work Phone: [facility] 03-16-2024 15:27-0400 Body mass index (BMI) [Ratio] 39.82 kg/m2 Ave Mackey TOBACCO SHAKER-SCHEDULING ASSISTANT Work Phone: [facility] 03-16-2024 15:27-0400 Body temperature 98.29 [degF] Ave Mackey TOBACCO SHAKER-SCHEDULING ASSISTANT Work Phone: [facility] 03-16-2024 15:27-0400 Body weight 105.[address]ica TOBACCO SHAKER-SCHEDULING ASSISTANT Work Phone: [facility] 02-23-2024 15:12-0400 Body height 162.6 cm Paige Damon Work Phone: [facility] 02-23-2024 15:12-0400 Body mass index (BMI) [Ratio] 39.82 kg/m2 Paige Damon Work Phone: [facility] 02-23-2024 15:12-0400 Body temperature 98.2 [degF] Paige Dunndamianfatuma Work Phone: [facility] 02-23-2024 15:12-0400 Body weight 105.23 kg Paige Dunnnagi Work Phone: [facility] 02-11-2024 07:32-0400 Body temperature 97.9 [degF] Mohan Gomez MD Work Phone: [facility] 02-11-2024 07:32-0400 Diastolic blood pressure 57 mm[Hg] Mohan Gomez MD Work Phone: [facility] 02-11-2024 07:32-0400 Heart rate 85 /min Mohan Gomez MD Work Phone: [facility] 02-11-2024 07:32-0400 Respiratory rate 18 /min Mohan Gomez MD Work Phone: [facility] 02-11-2024 07:32-0400 SaO2% (BldA) [Mass fraction] 94 % Mohan Gomez MD Work Phone: [facility] 02-11-2024 07:32-0400 Systolic blood pressure 109 mm[Hg] Mohan Gomez MD Work Phone: [facility] 02-11-2024 04:32-0400 Body mass index (BMI) [Ratio] 39.93 kg/m2 Mohan Gomez MD Work Phone: [facility] 02-11-2024 04:32-0400 Body weight 105.51 kg Mohan Gomez MD Work Phone: [facility] 02-02-2024 11:44-0400 Body height 162.6 cm Paigebowen Damon Work Phone: [facility] 02-02-2024 11:44-0400 Body mass index (BMI) [Ratio] 41.37 kg/m2 Paige Shaunnagi Work Phone: [facility] 02-02-2024 11:44-0400 Body temperature 98.8 [degF] Paige Damon Work Phone: [facility] [employer] [facility] 02-02-2024 11:44-0400 Body weight 109.32 kg Paige Damon Work Phone: [employer] [facility] 01-19-2024 14:50-0400 Body height 162.6 cm Mohan Gomez MD Work Phone: [facility] [employer] [facility] 01-19-2024 12:50-0400 Body temperature 98.2 [degF] Erik Heredia MD Work Phone: [employer] [facility] 01-19-2024 12:50-0400 Diastolic blood pressure 62 mm[Hg] Erik Heredia MD Work Phone: [employer] [facility] 01-19-2024 12:50-0400 Heart rate 89 /min Erik Heredia MD Work Phone: [employer] [facility] 01-19-2024 12:50-0400 Respiratory rate 16 /min Erik Heredia MD Work Phone: [employer] [facility] 01-19-2024 12:50-0400 SaO2% (BldA) [Mass fraction] 97 % Erik Heredia MD Work Phone: [employer] [facility] 01-19-2024 12:50-0400 Systolic blood pressure 137 mm[Hg] Erik Heredia MD Work Phone: [employer] [facility] 01-13-2024 10:00-0400 Body mass index (BMI) [Ratio] 37.24 kg/m2 Erik Heredia MD Work Phone: [employer] [facility] 01-13-2024 10:00-0400 Body weight 98.4 kg Erik Heredia MD Work Phone: [employer] [facility] 01-11-2024 11:55-0400 Body height 162.6 cm Erik Heerdia MD Work Phone: [employer] [facility] 12-01-2023 14:19-0400 Body height 162.6 cm Erik Heredia MD Work Phone: [facility] 12-01-2023 14: Body mass index (BMI) [Ratio] 38.96 kg/m2 Erik Heredia MD Work Phone: [facility] 12-01-2023 14: Body weight 102.97 kg Erik Heredia MD Work Phone: [facility] Encounters Encounter Date Encounter Type Care Provider Facility Start: 08-09-2024 ambulatory Cynkerry Garza Facility:C [id number] Start: 07-28-2024 End: 07-28-2024 ambulatory Cyn Garza Facility:[facility] Start: 07-28-2024 End: 07-28-2024 Patient encounter procedure [facility] Start: 07-20-2024 ambulatory Cynkerry Garza Facility:[facility] Start: 07-18-2024 End: 07-18-2024 ambulatory Tony Lucero [facility] Work Phone: Start: 07-18-2024 End: 07-18-2024 Departed Referred [facility] Start: 07-18-2024 End: 07-18-2024 ambulatory Cyn Garza Facility:[id number] Start: 05-01-2024 End: 05-02-2024 Non-patient / Non-visit Tony [facility] Work Phone: Start: 03-16-2024 End: 03-16-2024 Postop follow up visit related to original px Paige Damon Work Phone: [facility] Comment on above: 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) Start: 03-16-2024 End: 03-16-2024 Subsequent hospital visit by physician Paige Damon Work Phone: [facility] Start: 03-16-2024 ambulatory PAIGE DAMON [facility] Start: 02-23-2024 End: 02-23-2024 Postop follow up visit related to original px Paige Damon Work Phone: [facility] Comment on above: S/P total left hip a rthroplasty (Primary Dx) Start: 02-23-2024 ambulatory PAIGE DAMON [facility] Start: 02-23-2024 End: 02-23-2024 Subsequent hospital visit by physician Paige Damon Work Phone: [facility] Start: 02-02-2024 End: 02-02-2024 Postop follow up visit related to original px Paige Damon Work Phone: [facility] Comment on above: S/P total left hip a rthroplasty (Primary Dx) Start: 02-02-2024 End: 02-02-2024 Subsequent hospital visit by physician Paige Damon Work Phone: [facility] Start: 02-02-2024 [facility] Start: 01-19-2024 End: 02-11-2024 Evaluation and management of inpatient Mohan Gomez MD Work Phone: [facility] Start: 01-11-2024 End: 01-19-2024 ambulatory TIAN KUHN [facility] Start: 01-11-2024 End: 01-19-2024 Encounter for other preprocedural examination ERIK HEREDIA [facility] Start: 01-11-2024 End: 01-19-2024 Patient encounter status Erik Heredia MD Work Phone: [facility] Start: 01-11-2024 End: 01-19-2024 Subsequent hospital visit by physician Erik Heredia MD Work Phone: [facility] Comment on above: S/P total hip arthro plasty Start: 12-22-2023 End: 12-22-2023 ambulatory [facility] Start: 12-22-2023 End: 12-22-2023 Encounter for other preprocedural examination [facility] Start: 12-16-2023 ambulatory ABHI BALTAZAR [facility] Start: 12-01-2023 End: 12-01-2023 Office outpatient new 60 minutes Erik Heredia MD Work Phone: [facility] Comment on above: Pain of left hip (Pr imary Dx) Start: 12-01-2023 End: 12-01-2023 Subsequent hospital visit by physician Erik Heredia MD Work Phone: [facility] Start: 12-01-2023 ambulatory [facility] [facility] Start: 11-03-2023 End: 11-04-2023 ambulatory TRUMAN ARRIAGA Not Available Start: 09-18-2023 End: 09-19-2023 ambulatory TIAN KUHN [facility] Start: 11-09-[address] TIAN KUHN [...] MD Work Phone: Start: 02-07-2024 C-reactive protein Lev y F Josh AL Work Phone: Start: 02-06-2024 Basic metabolic pane l calcium total Mohan Gomez MD Work Phone: Start: 02-06-2024 C-reactive protein Lev y F Josh AL Work Phone: Start: 02-05-2024 Basic metabolic pane l calcium total Mohan Gomez MD Work Phone: Start: 02-05-2024 C-reactive protein Lev y Martin Moreno MD Work Phone: Start: 02-04-2024 Basic metabolic pane l calcium total Mohan Gomez MD Work Phone: Start: 02-04-2024 C-reactive protein Lev y Martin Moreno MD Work Phone: Start: 02-03-2024 Urnls dip stick/tabl et rgnt auto w/o microscopy Mohan Gomez MD Work Phone: Start: 02-03-2024 Basic metabolic pane l calcium total Mohan Gomez MD Work Phone: Start: 02-03-2024 C-reactive protein Adriannac y F Josh AL Work Phone: Start: 02-02-2024 Basic metabolic pane l calcium total Mohan Gomez MD Work Phone: Start: 02-02-2024 C-reactive protein Adriannac y Martin Moreno MD Work Phone: Start: 02-01-2024 Basic metabolic pane l calcium total Mohan Gomez MD Work Phone: Start: 02-01-2024 C-reactive protein Lev y Martin Moreno MD Work Phone: Start: 01-31-2024 Basic metabolic pane l calcium total Mohan Gomez MD Work Phone: Start: 01-31-2024 Hepatic function panel Janet Moreno MD Work Phone: Start: 01-30-2024 Basic metabolic pane l calcium total Mohan Gomez MD Work Phone: Start: 01-30-2024 C-reactive protein Lev y Martin Moreno MD Work Phone: Start: 01-29-2024 Basic metabolic pane l calcium total Mohan Gomez MD Work Phone: Start: 01-29-2024 C-reactive protein Lev y Martin Moreno MD Work Phone: Start: 01-28-2024 Basic metabolic pane l calcium total Mohan Gomez MD Work Phone: Start: 01-28-2024 C-reactive protein Lev y Martin Moreno MD Work Phone: Start: 01-27-2024 Basic metabolic pane l calcium total Mohan Gomez MD Work Phone: Start: 01-27-2024 C-reactive protein Lev Moreno MD Work Phone: Start: 01-26-2024 Basic metabolic pane l calcium total Mohan Gomez MD Work Phone: Start: 01-26-2024 C-reactive protein Lev y Martin Moreno MD Work Phone: Start: 01-25-2024 Basic metabolic pane l calcium total Mohan Gomez MD Work Phone: Start: 01-25-2024 C-reactive protein Adriannac y Martin Moreno MD Work Phone: Start: 01-24-2024 Iadna-dna/rna [...] count complete auto&auto difrntl wbc [address] Mac[facility] [employer]AKER-SCHEDULING ASSISTANT Work Phone: Start: 01-13-2024 Assay of troponin [...] examinati on pelvis 1/[address] Mac[address] [employer]SCHEDULING ASSISTANT Work Phone: Start: 01-11-2024 SURGICAL PATHOLOGY REQUEST Erik Heredia MD Work Phone: Start: 01-11-2024 End: 01-11-2024 Arthrp acetblr/prox fem prostc agrft/algrft Erik Heredia MD Work Phone: Start: 01-11-2024 Blood group typing, RH phenotyping Susan Chadwick PA-C Work Phone: Start: 01-11-2024 Prothrombin time Susan brian PA-C Work Phone: Start: 01-11-2024 GENERAL PROCEDURE Shantell Dasilva RN Arthroplasty of knee Cyn L ue Cholecystectomy Cyn Lue H/O: hysterectomy H/O: hysterectomy Cyn Lue Hysterectomy Cyn Lue Insertion of hip prosthesis Cyn Lue Total nephrectomy Cyn Lue Plan of Treatment Date Care Activity Detail Author Start: 02-14-2026 Tetanus vaccination [facility] Start: 07-18-2024 Bacteria identified in Urine by Culture Urine Culture [facility] Start: 07-18-2024 Urine culture [facility] Start: 03-19-2024 Influenza vaccination A [facility] Start: 03-17-2024 End: 03-17-2024 Patient encounter procedure 03/17/2024 10:45 AM EDT Office Visit [facility] [address] [place] [address] Mohan Gomez MD [address] [place] [address] [facility] Start: 03-09-2024 End: 03-09-2024 Patient encounter procedure 03/09/2024 4:00 PM EDT Office Visit [facility] [address] [place] [address], [place] [address] [address] APRN-MARGARITA [address] [place] [address], [place] [address] [facility] Start: 02-23-2024 End: 02-23-2024 ambulatory [facility] Start: 02-23-2024 End: 02-23-2024 Patient encounter procedure 02/23/2024 3:00 PM EDT Office Visit [facility] [address] [place] [address], [place] [address] Paige Damon [address] [place] [address], [place] [address] [facility] Start: 02-21-2024 End: 02-21-2024 ambulatory [facility] Start: 02-02-2024 End: 02-02-2024 Patient encounter procedure 02/02/2024 11:30 AM EDT Office Visit [facility] [address] [place] [address], [place] [address] Paige Damon [address] [place] [address], [place] [address] [facility] Start: 01-10-2024 End: 01-10-2024 Admission to same day surgery center 01/10/2024 6:45 AM EDT - 01/10/2024 8:00 AM EDT Surgery [facility] [address] [place] [address] Erik Heredia MD [address] [place] [address] ARTHROPLASTY HIP TOTAL AL [facility] Comment on above: ARTHROPLASTY HIP TOT AL AL Start: 01-10-2024 End: 01-10-2024 Arthrp acetblr/prox fem prostc agrft/algrft ARTHROPLASTY HIP TOTAL LATERAL APPROACH Osteoarthritis of left hip, unspecified osteoarthritis type 01/10/2024 6:45 AM EDT [facility] Start: 01-10-2024 Subsequent hospital visit by physician 01/10/2024 6:45 AM EDT Hospital Encounter [facility] [address] [place] [address] Erik Heredia MD [address] [place] [address] Osteoarthritis of left hip, unspecified osteoarthritis type [facility] Comment on above: Osteoarthritis of le ft hip, unspecified osteoarthritis type Start: 12-16-2023 End: 12-16-2023 Admission to establishment 12/16/2023 10:00 AM EDT Pre-Operative Nurse Assessment [facility] [address] [place] [address] [facility] Start: 03-19-2023 COVID-19 VACCINE ( season) COVID-19 VACCINE ( season) [facility] Start: 03-19-2023 [facility] Start: 10-17-2008 Pneumococcal vaccination [facility] Start: 2005 Zoster vaccine hzv l cheryl for subcutaneous use ZOSTER (SHINGLES) VACCINE (2 of 3) [facility] Start: 2005 [facility] Start: 2002 RSV VACCINE (1 - 1-d ose 60+ series) RSV VACCINE (1 - 1-dose 60+ series) [facility] Start: 10-11-1987 Screening for malign ant neoplasm of colon [facility] Start: 08-23-1985 Hepatitis B vaccination [facility] Start: 1982 Screening for malign ant neoplasm of breast [facility] Start: 10-11-1963 Screening for malign ant neoplasm of cervix [facility] Start: 1942 Screening for osteoporosis [facility] End: 01-11-2024 XR Hip - left Single view [facility] Comment on above: One Time for 1 Occur rences starting 01/11/2024 until 01/11/2024 XR Pelvis and Hip - left Views XR HIP WITH PELVIS LEFT Imaging Routine Pain of left hip 12/01/2023 2:03 PM EDT [facility] Work Phone: XR Pelvis and Hip - left Views XR HIP WITH PELVIS LEFT Imaging Routine S/P total left hip arthroplasty 02/02/2024 11:31 AM EDT [facility] XR Pelvis and Hip - left Views XR HIP WITH PELVIS LEFT Imaging Routine S/P total left hip arthroplasty 02/23/2024 2:59 PM EDT [facility] XR Pelvis and Hip - left Views XR HIP WITH PELVIS LEFT Imaging Routine Hx of total hip arthroplasty, left 03/16/2024 2:21 PM EDT [facility] Immunizations Immunization Date Immunization Notes [facility] influenza virus vaccine, unspecified formulation Erik Heredia MD Work Phone: [facility] 07-26-2020 SARS-CoV-2 (COVID-19 ) mRNA-1273 vaccine Cyn Garza [facility] 04-24-2020 influenza virus vaccine, unspecified formulation Cyn Greg [facility] 02-15-2016 tetanus toxoid, redu earline diphtheria toxoid, and acellular pertussis vaccine, adsorbed Cyn Lujame [facility] 01-18-2016 tetanus toxoid, redu earline diphtheria toxoid, and acellular pertussis vaccine, adsorbed Cyn Lue [facility] 04-23-2014 influenza virus vaccine, unspecified formulation Cyn Lue [facility] 10-18-2007 pneumococcal conjuga te vaccine, 13 valent Cyn Lue [facility] 08-15-2005 zoster vaccine, live Cyn L ue [facility] 08-15-2005 zoster vaccine, unspecified formulation Erik Heredia MD Work Phone: [facility] 07-26-1995 hepatitis A vaccine, adult dosage Cyn Lue [facility] 07-26-1985 hepatitis B vaccine, adult dosage Cyn Lue [facility] Payers Date Payer Category Payer Self-pay 2023 Medicare [id number] 1957 Medicare [id number] 1940 Unknown [id number] 2.16.84 [id number] 1942 Unknown [id number] 2.16.8 40.1.277281.3.579.2.1286 1942 Unknown [id number] 2.16.8 40.1.024944.3.579.2.1286 1942 Unknown [id number] 2.16.8 40.1.292100.3.579.2.1286 1942 Unknown [id number] 2.16.84 0.1.657896.3.579.2.1259 1942 Unknown [id number] 2.16.84 0.1.676287.3.579.2.1259 1942 Unknown [id number] 2.16.8 40.1.757319.3.579.2.983 1942 Unknown [id number] 2.16.8 40.1.593839.3.579.2.983 1942 Unknown [id number] 2.16.8 40.1.698528.3.579.2.983 1942 Unknown [id number] 2.16.8 40.1.590035.3.579.2.983 1942 Unknown [id number] 2.16.8 40.1.276548.3.579.2.983 1942 Unknown [id number] 2.16.8 40.1.801269.3.579.2.983 1942 Unknown [id number] 2.16.8 40.1.742730.3.579.2.983 1942 Unknown [id number] 2.16.8 40.1.686545.3.579.2.983 1942 Unknown [id number] 2.16.8 40.1.920652.3.579.2.983 1942 Unknown [id number] 2.16.8 40.1.636523.3.579.2.983 1942 Unknown [id number] 2.16.8 40.1.732094.3.579.2.983 1942 Unknown [id number] 2.16.8 40.1.907069.3.579.2.727 1942 Unknown [id number] 2.16.8 40.1.835174.3.579.2.727 Unknown [id number] 2.16.8 40.1.294304.3.579.2.531 Social History Date Type Detail Facility Start: 12-01-2023 End: 07-28-2024 Tobacco smoking status NHIS Never smoked tobacco [facility] Start: 12-01-2023 Tobacco use and exposure Smoke less tobacco non-user [facility] [employer] [facility] Start: 12-01-2023 End: 03-16-2024 Alcoholic beverage intake Lifetime non-drinker (finding) [employer] [facility] Start: 12-01-2023 End: 01-21-2024 [facility] of [facility] Start: 12-01-2023 End: 01-21-2024 Tobacco use panel [facility] Start: 1940 Sex assigned at Not on file [employer] Has the [employer], [employer], oil, or water company threatened to shut off services in your home in past 12Mo No [employer] (I/We) worried david fonseca (my/our) food would run out before (I/we) got money to buy more. Never true [employer] In the past 12 month s, has lack of transportation kept you from medical appointments or from getting medications? No [employer] How hard is it for y ou to pay for the very basics like food, housing, medical care, and heating Not very hard [employer] Tobacco smoking stat us NHIS Unknown if ever smoked [facility] Work Phone: Start: 07-19-2024 Sex Female (finding) [facility] Start: 1940 Sex Assigned At Female F [facility] Medical Equipment Procedure Code Equipment Code Equipment Origin al Text Equipment Identifier Dates [id number] Start: 01-11-2024 [id number] Start: 01-11-2024 [id number] Start: 01-11-2024 [id number] Start: 01-11-2024 [id number] Start: 01-11-2024 [id number] Start: 01-11-2024 [id number] Start: 01-11-2024 [id number] Start: 01-11-2024 [id number] Start: 01-11-2024 [id number] Start: 01-11-2024 Functional Status Date Assessment Result Facility 07-28-2024 Functional Status N/A [facility] Clinical Notes 12-01-2023 to 07-28-2024 Alhaji Dickinson, ATC - 03/16/2024 3:00 PM RENE Coon - 03/16/2024 3:00 PM EDRenettamirela Pickensey, ATC - 02/23/2024 3:00 PM Tylor James Marisol - 02/23/2024 3:00 PM EDTDisaliertrina Instr - Activity Note Date & Type Note Facility 07-28-2024 Hospital Discharg e instructions Patient Education 07/28/2024 10:34:04 Laser Therapy for Kidney Stones, Care After Laser Therapy for Kidney Stones, Care After After laser therapy for kidney stones, it is common to have: Pain. A burning feeling when you pee (urinate). Small amounts of blood in your pee (urine). A need to pee a lot. Parts of the kidney stone in your pee. Mild discomfort in your back when you pee. You may have this if you had a small mesh tube (stent) placed during the procedure. Follow these instructions at home: Medicines Take jgtk-wpo-nrajgxk and prescription medicines only as told by your health care provider. If you were prescribed antibiotics, take them as told by your provider. Do not stop using the antibiotic even if you start to feel better. Ask your provider if the medicine prescribed to you: ?Requires you to avoid driving or using machinery. ?Can cause constipation. You may need to take these actions to prevent or treat constipation: ?Drink enough fluid to keep your pee pale yellow. ?Take nrhu-ehq-kujatjz or prescription medicines. ?Eat foods that are high in fiber, such as beans, whole grains, and fresh fruits and vegetables. ?Limit foods that are high in fat and processed sugars, such as fried or sweet foods. Activity If you were given a sedative during the procedure, it can affect you for several hours. Do not drive or operate machinery until your provider says that it is safe. Return to your normal activities as told by your provider. Ask your provider what activities are safe for you. General instructions Your provider may recommend that you drink a lot of water for a few hours after your procedure. If you have heart or kidney disease, ask your provider how much you should drink. You may be asked to strain your pee to collect any stone pieces that you pass. Your provider may have these pieces tested. Do not take baths, swim, or use a hot tub until your provider approves. Ask your provider if you may take warm baths to soothe the burning. Keep all follow-up visits. If you have a stent, you will need to go back to your provider to have it removed. Your provider may give you more instructions. Make sure you know what you can and cannot do. Contact a health care provider if: You have pain or a burning feeling that lasts for more than 2 days. You feel nauseous. You vomit more and more often. You have trouble peeing. You have pain that gets worse or does not get better with medicine. You have a fever or shaking chills. Get help right away if: You cannot pee, even when your bladder feels full. You faint. You have chest pain, shortness of breath, or cough up blood. You have: ?Bright red blood or blood clots in your pee. ?Severe pain or discomfort. ?Pain in your abdomen. ?Swelling in your legs. These symptoms may be an emergency. Get help right away. Call 911. Do not wait to see if the symptoms will go away. Do not drive yourself to the hospital. This information is not intended to replace advice given to you by your health care provider. Make sure you discuss any questions you have with your health care provider. Document Revised: 03/05/2023 Document Reviewed: 03/05/2023 [employer] Patient Education 2023 [employer]. 07/28/2024 10:34:03 Laser Therapy for Kidney Stones Laser Therapy for Kidney Stones Laser therapy for kidney stones is a procedure to break up rock-like masses that form inside the kidneys (kidney stones). It is done using a device that beams a strong light (laser) on the kidney stones. This breaks the stones up into small pieces. These small pieces may leave your body when you pee (urinate) or may be taken out during the procedure. You may need laser therapy if you have kidney stones that are painful or that are stopping you from being able to pee. Tell a health care provider about: Any allergies you have. All medicines you are taking, including vitamins, herbs, eye drops, creams, and lual-zle-tlumchi medicines. Any problems you or family members have had with anesthesia. Any bleeding problems you have. Any surgeries you have had. Any medical conditions you have. Whether you are or may be . What are the risks? Your health care provider will talk with you about risks. These may include: Infection. Bleeding. Allergic reactions to medicines. Damage to: ?The part of your body that drains pee (urine) from the bladder (urethra). ?The bladder. ?The tube that connects the bladder to the kidneys (ureter). Urinary tract infection (UTI). Urethral stricture. This is when the urethra is narrowed by scarring. Trouble peeing. Blockage of the kidney. This may be caused by a piece of kidney stone. What happens before the procedure? When to stop eating and drinking Follow instructions from your provider about what you may eat and drink. These may include: 8 hours before the procedure ?Stop eating most foods. Do not eat meat, fried foods, or fatty foods. ?Eat only light foods, such as toast or crackers. ?All liquids are okay except energy drinks and alcohol. 6 hours before the procedure ?Stop eating. ?Drink only clear liquids, such as water, clear fruit juice, black coffee, plain tea, and sports drinks. ?Do not drink energy drinks or alcohol. 2 hours before the procedure ?Stop drinking all liquids. ?You may be allowed to take medicines with small sips of water. If you do not follow your provider's instructions, your procedure may be delayed or canceled. Medicines Ask your provider about: ?Changing or stopping your regular medicines. These include any diabetes medicines or blood thinners you take. ?Taking medicines such as aspirin and ibuprofen. These medicines can thin your blood. Do not take them unless your provider tells you to. ?Taking pzys-ygn-mmycvzc medicines, vitamins, herbs, and supplements. Tests You may have a physical exam before the procedure. You may also have tests done. These may include: ?Imaging tests. ?Blood or pee tests. Surgery safety Ask your provider: ?How your surgery site will be marked. ?What steps will be taken to help prevent infection. These steps may include: ?Removing hair at the surgery site. ?Washing skin with a soap that kills germs. ?Taking antibiotics. General instructions Do not use any products that contain nicotine or tobacco for at least 4 weeks before the procedure. These products include cigarettes, chewing tobacco, and vaping devices, such as e-cigarettes. If you need help quitting, ask your provider. If you will be going home right after the procedure, plan to have a responsible adult: ?Take you home from the hospital or clinic. You will not be allowed to drive. ?Care for you for the time you are told. What happens during the procedure? An IV will be inserted into one of your veins. You will be given: ?A sedative. This helps you relax. ?Anesthesia. This keeps you from feeling pain. It will make you fall asleep for surgery. A tool with a camera on the end (ureteroscope) will be put into your urethra. It will be moved through your bladder to your kidney. It will send pictures to a screen in the operating room. This will show what parts of your kidney need to be treated. A tube will be put through the ureteroscope. It will be moved into your kidney. The laser device will be put into your kidney through the tube. The laser will be used to break up the kidney stones. A tool with a tiny wire basket may be put through the tube into your kidney. This can help remove the small pieces of the kidney stone. A small mesh tube (stent) may be placed to allow your kidney to drain. The tube and ureteroscope will be taken out at the end of the surgery. The procedure may vary among providers and hospitals. What happens after the procedure? Your blood pressure, heart rate, breathing rate, and blood oxygen level will be monitored until you leave the hospital or clinic. If you had a stent placed, it may have a string that will be secured to your skin. This helps your provider remove the stent. You may be given a strainer to collect any stone pieces that you pass in your pee. Your provider may have these tested. This information is not intended to replace advice given to you by your health care provider. Make sure you discuss any questions you have with your health care provider. Document Revised: 03/05/2023 Document Reviewed: 03/05/2023 Elsevier Patient Education 2023 [employer] Follow Up Care 07/27/2024 16:37:35 With:Greg AL, STEFFI Castellanos, URO Address: When: Unknown [facility] 07-28-2024 Note Patient Education Nephrology Laser Therapy for Kidney Stones, Care After After laser therapy for kidney stones, it is common to have: ??? Pain. ??? A burning feeling when you pee (urinate). ??? Small amounts of blood in your pee (urine). ??? A need to pee a lot. ??? Parts of the kidney stone in your pee. ??? Mild discomfort in your back when you pee. You may have this if you had a small mesh tube (stent) placed during the procedure. Follow these instructions at home: Medicines ??? Take qtvb-ske-tqdvoqh and prescription medicines only as told by your health care provider. ??? If you were prescribed antibiotics, take them as told by your provider. Do not stop using the antibiotic even if you start to feel better. ??? Ask your provider if the medicine prescribed to you: ? Requires you to avoid driving or using machinery. ? Can cause constipation. You may need to take these actions to prevent or treat constipation: ? Drink enough fluid to keep your pee pale yellow. ? Take rrht-uwm-zxflrqc or prescription medicines. ? Eat foods that are high in fiber, such as beans, whole grains, and fresh fruits and vegetables. ? Limit foods that are high in fat and processed sugars, such as fried or sweet foods. Activity ??? If you were given a sedative during the procedure, it can affect you for several hours. Do not drive or operate machinery until your provider says that it is safe. ??? Return to your normal activities as told by your provider. Ask your provider what activities are safe for you. General instructions ??? Your provider may recommend that you drink a lot of water for a few hours after your procedure. If you have heart or kidney disease, ask your provider how much you should drink. ??? You may be asked to strain your pee to collect any stone pieces that you pass. Your provider may have these pieces tested. ??? Do not take baths, swim, or use a hot tub until your provider approves. Ask your provider if you may take warm baths to soothe the burning. ??? Keep all follow-up visits. If you have a stent, you will need to go back to your provider to have it removed. Your provider may give you more instructions. Make sure you know what you can and cannot do. Contact a health care provider if: ??? You have pain or a burning feeling that lasts for more than 2 days. ??? You feel nauseous. ??? You vomit more and more often. ??? You have trouble peeing. ??? You have pain that gets worse or does not get better with medicine. ??? You have a fever or shaking chills. Get help right away if: ??? You cannot pee, even when your bladder feels full. ??? You faint. ??? You have chest pain, shortness of breath, or cough up blood. ??? You have: ? Bright red blood or blood clots in your pee. ? Severe pain or discomfort. ? Pain in your abdomen. ? Swelling in your legs. These symptoms may be an emergency. Get help right away. Call 911. ??? Do not wait to see if the symptoms will go away. ??? Do not drive yourself to the hospital. This information is not intended to replace advice given to you by your health care provider. Make sure you discuss any questions you have with your health care provider. Document Revised: 03/05/2023 Document Reviewed: 03/05/2023 [employer] Patient Education ? 2023 [employer]. Laser Therapy for Kidney Stones Laser therapy for kidney stones is a procedure to break up rock-like masses that form inside the kidneys (kidney stones). It is done using a device that beams a strong light (laser) on the kidney stones. This breaks the stones up into small pieces. These small pieces may leave your body when you pee (urinate) or may be taken out during the procedure. You may need laser therapy if you have kidney stones that are painful or that are stopping you from being able to pee. Tell a health care provider about: ??? Any allergies you have. ??? All medicines you are taking, including vitamins, herbs, eye drops, creams, and mupl-bkr-wqxwikq medicines. ??? Any problems you or family members have had with anesthesia. ??? Any bleeding problems you have. ??? Any surgeries you have had. ??? Any medical conditions you have. ??? Whether you are or may be . What are the risks? Your health care provider will talk with you about risks. These may include: ??? Infection. ??? Bleeding. ??? Allergic reactions to medicines. ??? Damage to: ? The part of your body that drains pee (urine) from the bladder (urethra). ? The bladder. ? The tube that connects the bladder to the kidneys (ureter). ??? Urinary tract infection (UTI). ??? Urethral stricture. This is when the urethra is narrowed by scarring. ??? Trouble peeing. ??? Blockage of the kidney. This may be caused by a piece of kidney stone. What happens before the procedure? When to stop eating and drinking Follow instructions from your provider about what you may eat and drink. Thes (more content not included)... [facility] 03-16-2024 History of Presen t illness Narrative Ortho Nurse - Established Patient Intake Room#: 4 01/11/24 ARTHROPLASTY HIP TOTAL AL left Patient arrives with her grandson in her wheelchair. She is an 83 year old female. She has no complaints and is hoping to move to weight bearing status. Date: 03/16/2024 3:22 PM Patient: Cuate Goodman MR#: [id number] : 1940 Age: 83 y.o. Referring Physician: [...] SUBJECTIVE: Cuate is an established patient of mine. Here today for followup. She is now [...] any questions or concerns in the meantime. ([id number]) I have reviewed the findings of the clinical support services coordinator and agree with their assessment. RENE Monique Ortho Nurse - Established Patient Intake Room#: 4 01/11/24 ARTHROPLASTY HIP TOTAL AL left Patient arrives with her grandson in her wheelchair. She is an 83 year old female. She has no complaints and is hoping to move to weight bearing status. Date: 03/16/2024 3:22 PM Patient: Cuate Goodman MR#: [id number] : 1940 Age: 83 y.o. Referring Physician: [...] oxycodone, and penicillins. documented in this encounter [facility] 02-23-2024 History of Presen t illness [...] 02/23/2024 2:58 PM Patient: Cuate Goodman MR#: [id number] : 1940 Age: 83 y.o. Referring Physician: Self, Self Insurance: Payor: MEDICARE [employer] HMO OR PPO / Plan: MEDICARE [employer] [...] time. All pertinant portions of the clinical support services coordinator documentation was reviewed. Paige Damon I have reviewed the findings of the clinical support services coordinator and agree with their assessment. Paige Damon [...] 02/23/2024 2:58 PM Patient: Cuate Goodman MR#: [id number] : 1940 Age: 83 y.o. Referring Physician: [...] oxycodone, and penicillins. documented in this encounter [facility] 02-11-2024 Hospital course Narrative Images from [...] Department Dept Phone 02/21/2024 8:45 AM Janet Martin [facility] Infectious Disease [phone] 02/23/2024 3:00 PM [facility] [phone] documented in this encounter [facility] 02-11-2024 Miscellaneous Notes Patient discharged with all belongings via wheelchair by staff to private residence. Road Cutter provided patient with AVS. Road Cutter educated patient on entire AVS, including but not limited to, follow-up appointments, prescriptions, home medications (new, continued, and stopped), next med dose due date and times, discharge activity and diet, and discharge education based on diagnoses. Patient verbalized understanding of all AVS education provided by film writer. Problem: Adult Inpatient Plan of Care [...] & FWW Patient will demonstrate ability to pickling tank operator object from the floor with supervision and LRAD in order to promote independence in the home and demonstrate functional balance improvements in the rehabilitation program. Supervision with petroleum refining equipment operator & FWW Patient will perform car transfer [...] setting. NT Patient will demonstrate ability to pickling tank operator object from the floor with supervision and LRAD in order to promote independence in the home and demonstrate functional balance improvements in the rehabilitation program. SBA to CGA with petroleum refining equipment operator & FWW Patient will perform car transfer [...] promote additional improvement in functional mobility. Erik Julio, PT Waldemar will be picking up pt at 10:15 am 02/01 to transport her fellow up to [facility]. Dr Gomez rounding on patient. Problem: Adult [...] of OT POC and treatment assumed from Kali Carbajal OTR/L at [facility]. Marianna Lawson OTR/L 01/26/2024 Problem: Adult Inpatient Plan of Care [...] Outcome: Progressing Report received from ALLY Gomez, hotel night auditor. Patient up in recliner. Awake but drowsy. [...] up and needs. Also had collaborated with FRAUD EXAMINER earlier regarding pt's frequency. Pt would benefit [...] Optimal Mobility Outcome: Progressing Patient transferred to [facility]. Does not follow TTWB precautions. Becomes upset [...] alarm in place. documented in this encounter [facility] 02-11-2024 Miscellaneous Notes Patient discharged with all belongings via wheelchair by staff to private residence. Road Cutter provided patient with AVS. Road Cutter educated patient on entire AVS, including but not limited to, follow-up appointments, prescriptions, home medications (new, continued, and stopped), next med dose due date and times, discharge activity and diet, and discharge education based on diagnoses. Patient verbalized understanding of all AVS education provided by film writer. Problem: Adult Inpatient Plan of Care [...] & FWW Patient will demonstrate ability to pickling tank operator object from the floor with supervision and LRAD in order to promote independence in the home and demonstrate functional balance improvements in the rehabilitation program. Supervision with petroleum refining equipment operator & FWW Patient will perform car transfer [...] setting. NT Patient will demonstrate ability to pickling tank operator object from the floor with supervision and LRAD in order to promote independence in the home and demonstrate functional balance improvements in the rehabilitation program. SBA to CGA with petroleum refining equipment operator & FWW Patient will perform car transfer [...] promote additional improvement in functional mobility. Erik Julio, PT Waldemar will be picking up pt at 10:15 am 02/01 to transport her fellow up to [facility]. Dr Gomez rounding on patient. Problem: Adult [...] and treatment assumed from JANN Welch/Karin at [facility]. Marianna Lawson OTR/Karin 01/26/2024 Problem: Adult Inpatient Plan of Care [...] slight nausea. Refused offer of Zofran. Requested Jequeo. Provided. Pain medication provided as ordered and [...] Outcome: Progressing Report received from ALLY Gomez, hotel night auditor. Patient up in recliner. Awake but drowsy. [...] up and needs. Also had collaborated with FRAUD EXAMINER earlier regarding pt's frequency. Pt would benefit [...] Optimal Mobility Outcome: Progressing Patient transferred to [facility]. Does not follow TTWB precautions. Becomes upset [...] alarm in place. documented in this encounter [facility] 02-11-2024 History of Presen t illness Narrative 02/11/24 0917 Time In/Out OT Therapy Completed Attempted Attempted Reason Patient declined session;Other (see comments) (pt refused any OT this date- reports that she is leaving today and will be fine, declined any questions or concerns including ADL adaptations, has a HEP with tband and reports that she is I and [...] Daily, Mohan Gomez MD, 5 mg at 02/10/2442 multivitamin tablet 1 tablet, 1 tablet, Oral, Daily, Mohan Gomez MD, 1 tablet at 02/10/24 0842 ondansetron (ZOFRAN-ODT) disintegrating tablet 4 mg, 4 mg, Oral, Q4H PRN, Mohan Gomez MD, 4 mg at 02/05/24 09 Pantoprazole (PROTONIX) tablet DR 40 mg, 40 mg, Oral, Before BKF, Mohan Gomez MD, 40 mg at 02/11/24521 Polyethylene glycol (MIRALAX) packet 17 g, 17 [...] Date: 01/19/2024 Date of Evaluation: 49:54 PM [facility] LOS: 22 days IMPRESSION AND [...] In process LABS Labs-ABGs Labs-CBC @CBCBRIEFROUNDS@ Labs-Chem 7([facility]) Bun/Creat/Cl/CO2/Glucose: 19/0.80/105/29/97 (02/10 436) Na/K+/Phos/Mg/Ca: [...] bilateral inner thigh areas have improved. Are veneer redrier. Less irritation and pain. Patient was using [...] Other Reaction(s): GI intolerance Penicillins Hives Vitals: 02/09/24199902/09/24231802/10/2472502/10/2446 BP: 122/72 122/68 Pulse: 99 86 Resp: [...] CARE Score - Sit to Stand 5 Chair/Gpi-uk-Rrubf Transfer Assistance Needed Set-up / clean-up;Adaptive equipment Physical Assistance Level No physical assistance CARE Score - Chair/Ekj-zz-Mafpb Transfer 5 Toilet Transfer Assistance Needed Set-up [...] Date: 01/19/2024 Date of Evaluation: 1:47 PM [facility] LOS: 21 days IMPRESSION AND [...] In process LABS Labs-ABGs Labs-CBC @CBCBRIEFROUNDS@ Labs-Chem 7([facility]) Bun/Creat/Cl/CO2/Glucose: 20/0.90/104/28/103 (02/08 449) Na/K+/Phos/Mg/Ca: [...] Mohan Gomez MD, 40 mg at 02/09/24 0531 Polyethylene glycol (MIRALAX) packet 17 g, 17 [...] Mohan Gomez MD, 4 mg at 02/09/24 0838 Zolpidem (AMBIEN) tablet 5 mg, 5 mg, Oral, QHS PRN, Mohan Gomez MD, 5 mg at 02/08/24 2328 Allergies Allergen Reactions Morphine Nausea and Vomiting [...] Date: 01/19/2024 Date of Evaluation: 47:58 PM [facility] LOS: 20 days IMPRESSION AND [...] In process LABS Labs-ABGs Labs-CBC @CBCBRIEFROUNDS@ Labs-Chem 7([facility]) Bun/Creat/Cl/CO2/Glucose: 14/0.80/104/30/96 (02/07 450) Na/K+/Phos/Mg/Ca: [...] Mohan Gomez MD, 5 mg at 02/07/24 2251 Allergies Allergen Reactions Morphine Nausea and Vomiting [...] out sitting down for a rest break. Maureen Swing Bed, reports NOMNC being issued as patient states she is wanting to discharge on Wednesday. PT/OT recommending Home Health and transport chair. Maureen states patient does not want transport chair at discharge. SW spoke with patient at bedside. Patient states [...] 02/08/24 0930 Physical Therapy Minutes Start Time 0930 Stop Time 0946 Time Calculation 16 PT Individual Minutes 16 [...] Date: 01/19/2024 Date of Evaluation: 1:21 PM [facility] LOS: 19 days IMPRESSION AND [...] In process LABS Labs-ABGs Labs-CBC @CBCBRIEFROUNDS@ Labs-Chem 7([facility]) Bun/Creat/Cl/CO2/Glucose: 11/0.70/105/27/95 (02/07 436) Na/K+/Phos/Mg/Ca: 133/4.3/--/--/8.8 (02/07 [...] PRN, Mohan Gomez MD, 650 mg at 02/07/2408 Allopurinol (ZYLOPRIM) tablet 100 mg, 100 mg, Oral, Daily, Mohan Gomez MD, 100 mg at 02/07/24 0907 apixaban (ELIQUIS) tablet 5 mg, 5 mg, Oral, Q12H, Mohan Gomez MD, 5 mg at 02/07/24 0908 bisacodyl (DULCOLAX) suppository 10 mg, 10 mg, Rectal, Daily PRN, Mohan Gomez MD Cyclobenzaprine (FLEXERIL) tablet 5 mg, 5 mg, Oral, Q12H, Mohan Gomez MD, 5 mg at 02/07/2408 Docusate (COLACE) capsule 100 mg, 100 mg, Oral, Q12H, Mohan Gomez MD, 100 mg at 02/07/2408 ferrous sulfate tablet 325 mg, 325 mg, [...] Daily, Mohan Gomez MD, 5 mg at 02/07/2408 multivitamin tablet 1 tablet, 1 tablet, Oral, Daily, Mohan Gomez MD, 1 tablet at 02/07/2408 nystatin (MYCOSTATIN) cream 1 Application, 1 Application, [...] a 83 y.o. female was admitted to [facility] for: 1. S/P total left hip arthroplasty 2. Status post total replacement of left hip Nutrition Assessment Subjective assessment / comments: Pt has been admitted to swing bed for strengthening/rehab needs 2/2 s/p hip arthroplasty by Dr. Heredia. Patient with fair oral intakes noted and mentioned to FNS physician practice market manager the was getting tired of same [...] (227 lb) 12/01/23 103 kg (227 lb) [place] body weight: 54.7 kg (120 lb 9.5 [...] WBC 5.1 02/07/2024 RBC 3.23 (L) 02/07/2024 [id number] 16.9 01/20/2024 PMH & PSH: Past Medical [...] P: Continue OT per Plan of Care. Karen Bills, PRAKASH/L 02/07/24 1028 Occupational Therapy Minutes Start Time [...] to increase safety focusing on TTWB L LEKaden Bui, PRAKASH 02/07/2024 02/07/24 1125 Time In/Out Time In [...] Transfer Skill: Sit To Stand, Rehab Eval Robertson (Sit-Stand Transfers) supervision Physical Assist/Nonphysical Assist: Sit/Stand supervision Weight-Bearing Restrictions: Sit/Stand toe touch weight-bearing Assistive Device For Transfer: Sit/Stand 2 wheeled walker Gait Skills, PT Eval Level of Robertson: Gait supervision Physical Assist/Nonphysical Assist: Gait 1 [...] reach. DAILY PROGRESS NOTE Admit Date: 01/19/2024 [facility] LOS: 19 days IMPRESSION AND [...] In process LABS Labs-ABGs Labs-CBC @CBCBRIEFROUNDS@ Labs-Chem 7([facility]) Bun/Creat/Cl/CO2/Glucose: 17/0.80/104/29/100 (02/05 453) Na/K+/Phos/Mg/Ca: [...] to maintain TTWB on LLE pt ambulated [id number] and 75ftx1 with X1 seated rest; pt [...] the wound which is ongoing. Wound is veneer redrier but still has mild erythema. No pain reported. No drainage noted. Patient states that she ate very well yesterday as family broad an Nicola food for her. She did have 1 [...] Penicillins Hives Vitals: 02/05/24 0750 02/05/24 1936 02/05/24199902/06/24727 BP: 153/74 106/57 Pulse: 57 87 Resp: [...] Date: 01/19/2024 Date of Evaluation: 0:47 PM [facility] LOS: 17 days IMPRESSION AND [...] In process LABS Labs-ABGs Labs-CBC @CBCBRIEFROUNDS@ Labs-Chem 7([facility]) Bun/Creat/Cl/CO2/Glucose: 14/0.80/104/30/101 (02/04 05) Na/K+/Phos/Mg/Ca: 135/4.3/--/--/8.8 (02/04 525) Labs-Coags WBC (WHITE [...] Transfer Skill: Sit To Stand, Rehab Eval Robertson (Sit-Stand Transfers) contact guard Physical Assist/Nonphysical Assist: Sit/Stand verbal cues;supervision Transfer Skill: Toilet Transfer, Rehab Eval Assistive Device grab bars;2 wheeled walker Grooming Robertson Level (Grooming) grooming skills;hair care, combing/brushing;wash face, hands;contact guard assist (CGA while standing at sink with mod cues to facilitate TTWB.) Physical Assist/Nonphysical Assist supervision;verbal cues Lower Body Dressing Level of Robertson contact guard Physical Assist/Nonphysical Assist supervision;verbal cues Assistive Device petroleum refining equipment operator Toileting Level of Robertson contact guard Physical Assist/Nonphysical Assist supervision;verbal cues [...] 0 Pt finishing with PRAKASH when this BRAZER CRAWLER TORCH arrived; BRAZER CRAWLER TORCH observed pt being increasingly rude and aggravated with PRAKASH; pt asked if she needed a break or if she was willing to work with this BRAZER CRAWLER TORCH pt stated No! I guess Ill do it now and get it over with but I'm not doing anything that I dont have to; dont ask me to do extra ; therapist asked pt to assist with moving BLE for supine to sit transfer; pt refused to assist and demanded BRAZER CRAWLER TORCH to move BLE; therapist provided max assist [...] Q12H, Mohan Gomez MD, 2 tablet at 02/02/24 204 Tolterodine (DETROL-LA) capsule XL 4 mg, 4 mg, Oral, Daily, Mohan Gomez MD, 4 mg at 02/05/24 1021 Zolpidem (AMBIEN) tablet 5 mg, 5 mg, [...] DAILY PROGRESS NOTE ] Admit Date: 01/19/2024 [facility] LOS: 17 days IMPRESSION AND [...] In process LABS Labs-ABGs Labs-CBC @CBCBRIEFROUNDS@ Labs-Chem 7([facility]) Bun/Creat/Cl/CO2/Glucose: 18/0.80/104/31/96 (02/03 525) Na/K+/Phos/Mg/Ca: [...] Daily, Mohan Gomez MD, 100 mg at 07/19/24 0904 apixaban (ELIQUIS) tablet 5 mg, 5 mg, [...] PRN, Mohan Gomez MD, 1 tablet at 02/04/24902 hydroCODone-acetaminophen (NORCO) 5-325 MG per tablet 2 tablet, 2 tablet, Oral, Q4H PRN, Mohan Gomez MD, 2 tablet at 02/04/24 0026 lactulose (CHRONULAC) oral solution 20 g, 20 g, Oral, TID PRN, Mohan Gomez MD Lisinopril (PRINIVIL) tablet 5 mg, 5 mg, Oral, Daily, Mohan Gomez MD, 5 mg at 02/04/24903 multivitamin tablet 1 tablet, 1 tablet, Oral, Daily, Mohan Gomez MD, 1 tablet at 02/04/24903 Ondansetron (ZOFRAN) tablet 4 mg, 4 mg, Oral, Q4H PRN, Mohan Gomez MD, 4 mg at 02/03/24815 Pantoprazole (PROTONIX) tablet DR 40 mg, 40 mg, Oral, Daily, Mohan Gomez MD, 40 mg at 02/04/24903 Polyethylene glycol (MIRALAX) packet 17 g, 17 [...] Daily, Mohan Gomez MD, 4 mg at 02/04/24 0904 Zolpidem (AMBIEN) tablet 5 mg, 5 mg, Oral, QHS PRN, Mohan Gomez MD, 5 mg at 02/04/24 0026 Allergies Allergen Reactions Morphine Nausea and Vomiting Other Reaction(s): GI intolerance Oxycodone Nausea and Vomiting Other Reaction(s): GI intolerance Penicillins Hives Vitals: 02/03/24200902/04/24 0618 02/04/24 0751 02/04/24 0759 BP: 132/62 114/58 Pulse: 88 85 Resp: 17 18 Temp: 98 degrees F [...] NOTE Admit Date: 01/19/2024 Date of Evaluation: 1:05 PM [facility] LOS: 15 days IMPRESSION AND [...] In process LABS Labs-ABGs Labs-CBC @CBCBRIEFROUNDS@ Labs-Chem 7([facility]) Bun/Creat/Cl/CO2/Glucose: 17/0.90/104/29/100 (02/03 552) Na/K+/Phos/Mg/Ca: [...] MaxA+2.Attempted to have pt try using leg breakfast host although pt stated I can't when asked [...] with SBA-CGA for balance using FWW and petroleum refining equipment operator with set up while seated. Donned underwear using petroleum refining equipment operator while seated and SBA-CGA to don over waist using FWW. CARE Score - Lower Body Dressing 4 Putting On/Taking Off Footwear Assistance Needed Physical assistance Physical Assistance Level Total assistance Comment Declined use of equipment CARE Score - Putting On/Taking Off Footwear 1 Toileting Hygiene Assistance Needed Incidental touching;Adaptive equipment Comment SBA-CGA using FWW CARE Score - Toileting Hygiene 4 Chair/Krp-qr-Hvcme Transfer Assistance Needed Incidental touching;Adaptive equipment Comment SBA-CGA using FWW (initial CGA, as first time standing from chair this AM per pt report) CARE Score - Chair/Liv-ji-Xvztm Transfer 4 Toilet Transfer Assistance Needed Incidental [...] PRN, Mohan Gomez MD, 2 tablet at 02/03/24 0010 lactulose (CHRONULAC) oral solution 20 g, 20 g, Oral, TID PRN, Mohan Gomez MD Lisinopril (PRINIVIL) tablet 5 mg, 5 mg, Oral, Daily, Mohan Gomez MD, 5 mg at 02/03/24 0942 multivitamin tablet 1 tablet, 1 tablet, Oral, Daily, Mohan Gomez MD, 1 tablet at 02/03/24 0942 Nystatin (MYCOSTATIN) oral suspension 500,000 Units, 500,000 Units, Swish & Swallow, 4x daily, Janet Moreno MD, 500,000 Units at 02/03/24 0940 Ondansetron (ZOFRAN) tablet 4 mg, 4 mg, Oral, Q4H PRN, Mohan Gomez MD, 4 mg at 02/03/24 0816 Pantoprazole (PROTONIX) tablet DR 40 mg, 40 mg, Oral, Daily, Mohan Gomez MD, 40 mg at 02/03/2442 Polyethylene glycol (MIRALAX) packet 17 g, 17 [...] Mohan Gomez MD, 5 mg at 02/03/24 0010 Allergies Allergen Reactions Morphine Nausea and Vomiting Other Reaction(s): GI intolerance Oxycodone Nausea and Vomiting Other Reaction(s): GI intolerance Penicillins Hives Vitals: 02/02/24 2004 02/03/24 0300 02/03/24 0707 02/03/24 0812 BP: 119/64 [...] or two, then I will stay here. CP BLEACHER OPERATOR informs Cuate that her insurance review was 01/31/24 and determination is still pending. Cuate agreeable for social media marketing manager to update her once insurance determination is known. CM will continue to follow. MATT Suarez 02/03/2024 8:17 AM DAILY PROGRESS NOTE Admit Date: 01/19/2024 Date of Evaluation: 0:41 PM [facility] LOS: 14 days IMPRESSION AND [...] In process LABS Labs-ABGs Labs-CBC @CBCBRIEFROUNDS@ Labs-Chem 7([facility]) Bun/Creat/Cl/CO2/Glucose: 18/0.90/103/30/103 (02/01 514) Na/K+/Phos/Mg/Ca: [...] Gomez MD, 5 mg at 02/02/24 0836 Docusate (COLACE) capsule 100 mg, 100 mg, [...] Daily, Mohan Gomez MD, 4 mg at 02/02/24834 Zolpidem (AMBIEN) tablet 5 mg, 5 mg, [...] Date: 01/19/2024 Date of Evaluation: 49:41 PM [facility] LOS: 13 days IMPRESSION AND [...] Patient Name: CUATE GOODMAN Med. Rec. #: [id number] Physician: ERIK HEREDIA Specimen(s) Received Left femoral [...] articular cartilage degeneration. Sectioning reveals unremarkable bone. Sheep Rancher sections are submitted in one cassette and placed in decalcification solution prior to processing. Billing Fee Code(s) A: 45599, 57923 WBC (WHITE BLOOD COUNT) 01/12/2024 10.5 3.6 [...] and . LABS Labs-ABGs Labs-CBC @CBCBRIEFROUNDS@ Labs-Chem 7([facility]) Bun/Creat/Cl/CO2/Glucose: 14/0.90/103/28/98 (01/31 434) Na/K+/Phos/Mg/Ca: [...] alarm flashing green and all needs met. TRACK VEHICLE REPAIRER made aware pt needs assistance with donning [...] wheeled walker;other (see comment) (Pt used leg breakfast host for car transfers.) Gait Assessment Gait Comments [...] Assistance Level No physical assistance Comment using petroleum refining equipment operator pt picked up 4 items off the [...] Gomez MD, 5 mg at 02/01/24 0934 Docusate (COLACE) capsule 100 mg, 100 mg, Oral, Q12H, Mohan Gomez MD, 100 mg at 02/01/24 0933 ferrous sulfate tablet 325 mg, 325 mg, Oral, Daily, Mohan Gomez MD, 325 mg at 02/01/24 0933 hydroCODone-acetaminophen (NORCO) 5-325 MG per tablet 1 [...] Daily, Mohan Gomez MD, 5 mg at 02/01/24 0934 multivitamin tablet 1 tablet, 1 tablet, Oral, Daily, Mohan Gomez MD, 1 tablet at 02/01/24 0933 Nystatin (MYCOSTATIN) oral suspension 500,000 Units, 500,000 Units, Swish & Swallow, 4x daily, Janet Moreno MD, 500,000 Units at 02/01/24 1709 Ondansetron (ZOFRAN) tablet 4 mg, 4 mg, Oral, Q4H PRN, Mohan Gomez MD, 4 mg at 02/01/24 0811 Pantoprazole (PROTONIX) tablet DR 40 mg, 40 mg, Oral, Daily, Mohan Gomez MD, 40 mg at 02/01/2434 Polyethylene glycol (MIRALAX) packet 17 g, 17 [...] Daily, Mohan Gomez MD, 4 mg at 02/01/2432 Zolpidem (AMBIEN) tablet 5 mg, 5 mg, Oral, QHS PRN, Mohan Gomez MD, 5 mg at 01/31/242251 Allergies Allergen Reactions Morphine Nausea and Vomiting Other Reaction(s): GI intolerance Oxycodone Nausea and Vomiting Other Reaction(s): GI intolerance Penicillins Hives Vitals: 07/16/24 0416 02/01/24 0730 02/01/24 0753 02/01/247 BP: 121/71 Pulse: 90 Resp: 19 Temp: 97.6 degrees F (36.4 degrees C) TempSrc: Oral SpO2: 92% 92% 92% Weight: 110.8 kg (244 lb 4.8 oz) Height: Intake/Output Summary (Last 24 hours) at 02/01/2024 193 Last data filed at 02/01/2024 1700 Gross [...] Date: 01/19/2024 Date of Evaluation: 2:14 AM [facility] LOS: 13 days IMPRESSION AND [...] Surgical Final Report Patient Name: CUATE GOODMAN [facility]. Rec. #: [id number] Physician: ERIK HEREDIA Specimen(s) Received Left femoral [...] articular cartilage degeneration. Sectioning reveals unremarkable bone. Sheep Rancher sections are submitted in one cassette and placed in decalcification solution prior to processing. Billing Fee Code(s) A: 14617, 88304 WBC (WHITE BLOOD COUNT) 01/12/2024 10.5 3.6 [...] and . LABS Labs-ABGs Labs-CBC @CBCBRIEFROUNDS@ Labs-Chem 7([facility]) Bun/Creat/Cl/CO2/Glucose: 12/.10/102/33/94 (01/31 612) Na/K+/Phos/Mg/Ca: 134/4.5/--/--/8.7 (01/31 612) Labs-Coags [...] of OT POC and treatment transferred to YASH Welch at [facility]. YASH Travis 01/31/2024 01/31/24 1415 Physical [...] 01/31/24 0909 Occupational Therapy Minutes Start Time 908 Stop Time 941 Time Calculation 33 Oral Hygiene Assistance Needed [...] Gomez MD, 5 mg at 01/31/24 0909 Docusate (COLACE) capsule 100 mg, 100 mg, Oral, Q12H, Mohan Gomez MD, 100 mg at 01/31/24 0909 ferrous sulfate tablet 325 mg, 325 mg, Oral, Daily, Mohan Gomez MD, 325 mg at 07/15/24 0909 hydroCODone-acetaminophen (NORCO) 5-325 MG per tablet 1 tablet, 1 tablet, Oral, Q4H PRN, Mohan Gomez MD, 1 tablet at 01/31/24 135 hydroCODone-acetaminophen (NORCO) 5-325 MG per tablet 2 tablet, 2 tablet, Oral, Q4H PRN, Mohan Gomez MD, 2 tablet at 01/30/242356 lactulose (CHRONULAC) oral solution 20 g, 20 g, Oral, TID PRN, Mohan Gomez MD Lisinopril (PRINIVIL) tablet 5 mg, 5 mg, Oral, Daily, Mohan Gomez MD, 5 mg at 01/30/24 0855 multivitamin tablet 1 tablet, 1 tablet, Oral, Daily, Mohan Gomez MD, 1 tablet at 01/31/24908 nystatin (NYSTOP;MYCOSTATIN) powder 1 Application, 1 Application, [...] Daily, Mohan Gomez MD, 4 mg at 01/31/24908 Zolpidem (AMBIEN) tablet 5 mg, 5 mg, Oral, QHS PRN, Mohan Gomez MD, 5 mg at 01/30/242356 Allergies Allergen Reactions Morphine Nausea and Vomiting Other Reaction(s): GI intolerance Oxycodone Nausea and Vomiting Other Reaction(s): GI intolerance Penicillins Hives Vitals: 01/30/24199901/31/24 0337 01/31/24 0708 01/31/24 0745 BP: 126/62 [...] NOTE Admit Date: 01/19/2024 Date of Evaluation: 46:41 PM [facility] LOS: 11 days IMPRESSION AND [...] Surgical Final Report Patient Name: CUATE GOODMAN [facility]. Rec. #: [id number] Physician: ERIK HEREDIA Specimen(s) Received Left femoral [...] articular cartilage degeneration. Sectioning reveals unremarkable bone. Sheep Rancher sections are submitted in one cassette and placed in decalcification solution prior to processing. Billing Fee Code(s) A: 07508, 23831 WBC (WHITE BLOOD COUNT) 01/12/2024 10.5 3.6 [...] and . LABS Labs-ABGs Labs-CBC @CBCBRIEFROUNDS@ Labs-Chem 7([facility]) Bun/Creat/Cl/CO2/Glucose: 10/.00/101/31/93 (01/29 415) Na/K+/Phos/Mg/Ca: 135/4.4/--/--/8.6 (01/29 415) Labs-Coags [...] nursing aware of pt not feeling well. DEVIN Zhang 01/30/2024 01/30/24 0931 Physical Therapy Minutes Start Time 930 Stop Time 930 Time Calculation 0 PT [...] Daily, Mohan Gomez MD, 1 tablet at 01/30/24854 nystatin (NYSTOP;MYCOSTATIN) powder 1 Application, 1 Application, [...] Q12H, Mohan Gomez MD, 2 tablet at 01/22/242100 Sulfamethoxazole-trimethoprim (BACTRIM DS) 800-160 MG per tablet 1 tablet, 1 tablet, Oral, Q12H, Janet Moreno MD, 1 tablet at 01/30/24 08 Tolterodine (DETROL-LA) capsule XL 4 mg, 4 mg, Oral, Daily, Mohan Gomez MD, 4 mg at 01/30/24 08 Zolpidem (AMBIEN) tablet 5 mg, 5 [...] 1.00 01/30/2024 GLUCOSE 93 01/30/2024 Micro C [facility] 02-02-2024 History of Presen t illness Narrative Ortho Nurse - Established Patient Intake Room#: Cast room Patient is an 83 year old female who arrives in a wheel chair for her 3 week follow up after LHTA-AL on 01/11/24. She states she is not in any pain today and states her pain is controlled well. She is using Nazlini codone acetaminophen for pain relief as well as Tylenol prn. Her leg is wrapped instead of JOSAFAT hose and she is using Eliquis for DVT preventation. She is following touch down weight bearing protocol. Date: 02/02/2024 11:34 AM Patient: Cuate Goodman MR#: [id number] : 1940 Age: 83 y.o. Referring Physician: Paige Damon Insurance: Payor: MEDICARE AET HMO OR PPO [...] Gomez MD, 650 mg at 02/02/24 0935 [Sep - Suspended Admission] Allopurinol (ZYLOPRIM) tablet 100 mg, 100 mg, Oral, Daily, Mohan Gomez MD, 100 mg at 02/02/24 0836 [Sep - Suspended Admission] apixaban (ELIQUIS) tablet 5 mg, 5 mg, Oral, Q12H, Mohan Gomez MD, 5 mg at 02/02/24 0836 [Sep - Suspended Admission] bisacodyl (DULCOLAX) suppository 10 mg, 10 mg, Rectal, Daily PRN, Mohan Gomez MD [Sep - Suspended Admission] Cyclobenzaprine (FLEXERIL) tablet 5 mg, 5 mg, Oral, Q12H, Mohan Gomez MD, 5 mg at 02/02/24 0836 [Sep - Suspended Admission] Docusate (COLACE) capsule 100 mg, 100 mg, Oral, Q12H, Mohan Gomez MD, 100 mg at 02/02/24 0836 [SEP Hold - Suspended Admission] ferrous sulfate tablet 325 mg, 325 mg, Oral, Daily, Mohan Gomez MD, 325 mg at 02/02/24 0836 [Sep - Suspended Admission] hydroCODone-acetaminophen (NORCO) 5-325 MG per tablet 1 tablet, 1 tablet, Oral, Q4H PRN, Mohan Gomez MD, 1 tablet at 02/01/24 1016 [Sep - Suspended Admission] hydroCODone-acetaminophen (NORCO) 5-325 MG per tablet 2 tablet, 2 tablet, Oral, Q4H PRN, Mohan Gomez MD, 2 tablet at 02/01/24 2306 [Sep - Suspended Admission] lactulose (CHRONULAC) oral solution 20 g, 20 g, Oral, TID PRN, Mohan Gomez MD [Sep - Suspended Admission] Lisinopril (PRINIVIL) tablet 5 mg, 5 mg, Oral, Daily, Mohan Gomez MD, 5 mg at 02/02/24 0835 [Sep - Suspended Admission] multivitamin tablet 1 tablet, 1 tablet, Oral, Daily, Mohan Gomez MD, 1 tablet at 02/02/24 0835 [SEP Hold - Suspended Admission] Nystatin (MYCOSTATIN) oral suspension 500,000 Units, 500,000 Units, Swish & Swallow, 4x daily, Janet Moreno MD, 500,000 Units at 02/02/24 0835 [SEP Hold - Suspended Admission] Ondansetron (ZOFRAN) tablet 4 mg, 4 mg, Oral, Q4H PRN, Mohan Gomez MD, 4 mg at 02/02/24 0840 [Sep - Suspended Admission] Pantoprazole (PROTONIX) tablet DR 40 mg, 40 mg, Oral, Daily, Mohan Gomez MD, 40 mg at 02/02/24 0836 [[facility] - Suspended Admission] Polyethylene glycol (MIRALAX) packet 17 g, 17 g, Oral, Q12H, Mohan Gomez MD, 17 g at 01/30/24 2044 [[facility] Hold - Suspended Admission] Polyethylene glycol (MIRALAX) packet 17 g, 17 g, Oral, TID PRN, Mohan Gomez MD [[facility] - Suspended Admission] senna-docusate (SENOKOT-S) 8.6-50 MG per tablet 2 tablet, 2 tablet, Oral, Q12H, Mohan Gomez MD, 2 tablet at 01/30/242043 [SEP Hold - Suspended Admission] Tolterodine (DETROL-LA) capsule [...] pain today. She is using Tylenol and [place] for pain control and Eliquis for DVT prophylaxis along with JOSAFAT hose. She reports she is anxious to get home. Of note, Dr. Moreno was consulted upon arrival to [facility] due to concerns for SSI [...] arise. All pertinant portions of the clinical support services coordinator documentation was reviewed. Paige Damon I have reviewed the findings of the clinical support services coordinator and agree with their assessment. 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 She states she is not in any pain today and states her pain is controlled well. She is using Nazlini codone acetaminophen for pain relief as well as Tylenol prn. Her leg is wrapped instead of JOSAFAT hose and she is using Eliquis for DVT preventation. She is following touch down weight bearing protocol. Date: 02/02/2024 11:34 AM Patient: Cuate Goodman MR#: [id number] : 1940 Age: 83 y.o. Referring Physician: Paige Damon Insurance: Payor: MEDICARE [employer] HMO OR PPO / Plan: MEDICARE [employer] PPO / Product Type: *No Product type* [...] Gomez MD, 650 mg at 02/02/24 0935 [Sep - Suspended Admission] Allopurinol (ZYLOPRIM) tablet 100 mg, 100 mg, Oral, Daily, Mohan Gomez MD, 100 mg at 02/02/24 0836 [Sep - Suspended Admission] apixaban (ELIQUIS) tablet 5 mg, 5 mg, Oral, Q12H, Mohan Gomez MD, 5 mg at 02/02/24 0836 [Sep - Suspended Admission] bisacodyl (DULCOLAX) suppository 10 mg, 10 mg, Rectal, Daily PRN, Mohan Gomez MD [Sep - Suspended Admission] Cyclobenzaprine (FLEXERIL) tablet 5 mg, 5 mg, Oral, Q12H, Mohan Gomez MD, 5 mg at 02/02/24 0836 [Sep - Suspended Admission] Docusate (COLACE) capsule 100 mg, 100 mg, Oral, Q12H, Mohan Gomez MD, 100 mg at 02/02/24 0836 [Sep - Suspended Admission] ferrous sulfate tablet 325 mg, 325 mg, Oral, Daily, Mohan Gomez MD, 325 mg at 02/02/24 0836 [Sep - Suspended Admission] hydroCODone-acetaminophen (NORCO) 5-325 MG per tablet 1 tablet, 1 tablet, Oral, Q4H PRN, Mohan Gomez MD, 1 tablet at 02/01/24 1016 [Sep - Suspended Admission] hydroCODone-acetaminophen (NORCO) 5-325 MG per tablet 2 tablet, 2 tablet, Oral, Q4H PRN, Mohan Gomez MD, 2 tablet at 02/01/24 2306 [Sep - Suspended Admission] lactulose (CHRONULAC) oral solution 20 g, 20 g, Oral, TID PRN, Mohan Gomez MD [Sep - Suspended Admission] Lisinopril (PRINIVIL) tablet 5 mg, 5 mg, Oral, Daily, Mohan Gomez MD, 5 mg at 02/02/24834 [Sep - Suspended Admission] multivitamin tablet 1 tablet, 1 tablet, Oral, Daily, Mohan Gomez MD, 1 tablet at 02/02/24834 [SEP Hold - Suspended Admission] Nystatin (MYCOSTATIN) oral suspension 500,000 Units, 500,000 Units, Swish & Swallow, 4x daily, Janet Moreno MD, 500,000 Units at 02/02/24834 [SEP Hold - Suspended Admission] Ondansetron (ZOFRAN) tablet 4 mg, 4 mg, Oral, Q4H PRN, Mohan Gomez MD, 4 mg at 02/02/24839 [Sep - Suspended Admission] Pantoprazole (PROTONIX) tablet DR 40 mg, 40 mg, Oral, Daily, Mohan Gomez MD, 40 mg at 02/02/24835 [Sep - Suspended Admission] Polyethylene glycol (MIRALAX) packet 17 g, 17 g, Oral, Q12H, Mohan Gomez MD, 17 g at 01/30/242043 [SEP Hold - Suspended Admission] Polyethylene glycol (MIRALAX) packet 17 g, 17 g, Oral, TID PRN, Mohan Gomez MD [Sep - Suspended Admission] senna-docusate (SENOKOT-S) 8.6-50 MG per tablet 2 tablet, 2 tablet, Oral, Q12H, Mohan Gomez MD, 2 tablet at 01/30/242043 [Sep - Suspended Admission] Tolterodine (DETROL-LA) capsule XL 4 mg, 4 mg, Oral, Daily, Mohan Gomez MD, 4 mg at 02/02/24834 [Sep - Suspended Admission] Zolpidem (AMBIEN) tablet 5 mg, 5 mg, Oral, QHS PRN, Mohan Gomez MD, 5 mg at 02/01/242305 Allergies: She is allergic to morphine, oxycodone, and penicillins. documented in this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 exceptions noted in the flowsheet. Patient denies further needs and is left with call light and personals in reach. [facility] 01-17-2024 Nurse Note Resting in chair. Assessment unchanged from earlier. Call light in reach. [facility] 01-16-2024 Nurse Note Patient remains resting in recliner chair beside of bed. Voices no needs. Was medicated earlier for pain. Assessment unchanged from previous. Ice maintained to left hip. Call light in reach. [facility] 01-16-2024 Plan of care note Problem: [...] rest periods promoted Nutrition Interventions: diet adjusted [facility] 01-16-2024 Nurse Note Afternoon assessment completed. No changes noted. Patient resting with no complaints. Call light and phone within reach. [facility] 01-16-2024 Nurse Note No change noted from previous assessment by this RN unless otherwise detailed in coordinating flow sheets. Patient denies any needs at this time. [facility] 01-16-2024 Nurse Note Assessment unchanged from prior unless otherwise charted. Patient resting in bed, call light within reach, Up In Chair, Patient denies any current needs at this time. [facility] 01-15-2024 Plan of care note Problem: [...] rest periods promoted Nutrition Interventions: diet adjusted [facility] 01-15-2024 Nurse Note Afternoon assessment completed. No changes noted. Patient resting in the chair with no complaints. Call light and phone within reach. [facility] 01-15-2024 Nurse Note No change noted from previous assessment by this RN unless otherwise detailed in coordinating flow sheets. Patient denies any needs at this time. [facility] 01-15-2024 Nurse Note Pt assessment remains [...] at this time. Call light within reach. [facility] 01-15-2024 Nurse Note Pt assessment remains unchanged with any exceptions noted in flowsheets. Pt appears to be sleeping, respirations even and unlabored. Call light within reach. [facility] 01-14-2024 Nurse Note Pt assessment complete and documented in flowsheets. POC reviewed with pt. Pt is alert, respirations even and unlabored. No acute distress observed. Fresh ice pack applied to left hip. DEYSI dressing intact and flashing green. Pt c/o 02/25 pain to left hip. Tramadol given - see MAR. Pt denies any further needs at this time. Call light within reach. [facility] 01-14-2024 Plan of care note Problem: [...] rest periods promoted Nutrition Interventions: diet adjusted [facility] 01-14-2024 Nurse Note Afternoon assessment completed. No changes noted. Patient resting with no complaints. Call light and phone within reach. [facility] 01-14-2024 Nurse Note No change noted from previous assessment by this RN unless otherwise detailed in coordinating flow sheets. Patient denies any needs at this time. [facility] 01-14-2024 Nurse Note Pt resting in chair. Assessment remains unchanged from previous. Call light is within reach, SCDs are on. [facility] 01-14-2024 Nurse Note Pt resting in bed. Assessment remains unchanged from previous. Road Cutter redresses avril wraps to BLE. Call light is within reach and bed alarm is on. [facility] 01-13-2024 Nurse Note Updates given to daughter Sonal. She denies any questions or concerns. [facility] 01-13-2024 Consult note Formatting of th [...] Preop EKG at baseline. Known diastolic dysfunction. Steel Estimator did clear her for surgery. She had [...] minutes total time. Luis Monte MD 01/13/2024 [facility] 01-13-2024 Nurse Note No changes noted from previous assessment by this RN except what is detailed in coordinating flow sheets. Patient denies needs at this time. Call light is in reach. [facility] 01-13-2024 Nurse Note Patient denies any pain at this time. Patient denies need for pain medication and states she will call whenever she needs them. Med ULLOA at bedside. No changes noted from previous assessment by this RN except what is detailed in coordinating flow sheets. Patient denies needs at this time. Call light is in reach. [facility] 01-13-2024 Nurse Note Voicemail left for [...] this time. Call light is in reach. [facility] 01-13-[address] Cutter reviews charting by Madeleine CANALES, film writer agrees with charting. [facility] 01-13-2024 Nurse Note Patient complains of chest pain she describes it as pressure that is moving left. She states it feels like how it fells when I get indigestion . Dr. Monte notified. New orders received. [facility] 01-13-2024 Nurse Note Reassessment complete at this time and remains unchanged from previous. Patient states I slept really well last night. I think the Tramadol helped a lot. Patient rates pain 5/10 and 8/10 with spasms, movement. Patient DEYSI flashing green. Patient denies further needs and is left with call light and personals within reach. [facility] 01-13-2024 Nurse Note Reassessment complete at this time. Patient states Pain is much better. Patient denies any further needs and is left with call light and personals within reach. [facility] 01-12-2024 Consult note Formatting of th [...] Preop EKG at baseline. Known diastolic dysfunction. Steel Estimator did clear her for surgery. She had [...] minutes total time. Luis Monte MD 01/12/2024 [facility] 01-12-2024 Nurse Note Assessment complete at this time with any exceptions noted in the flowsheets. Patient was snoring upon this nurse entering the room. Patient did not awaken to verbal stimulation. This nurse touched patients arm in an attempt to awaken her. Patient was still snoring. This nurse rubbed patient and she startled awake. Patient asked for [place] and was told she was not due for two more hours. Patient agreeable to wait. Patient denies further needs and is left with call light and personals within reach. [facility] 01-12-2024 Nurse Note Patient son's Mat at bedside at this time. This RN questioned if the patient would like PRN pain medication, patient states I'll call you when I want them . Denies needs at this time, call light within reach. [facility] 01-12-2024 Nurse Note No changes noted from previous assessment by this RN except what is detailed in coordinating flow sheets. Patient denies needs at this time. Call light is in reach. [facility] 01-12-2024 Nurse Note Bilaterally AVRIL wrap applied to lower legs with MARY Mcgee at this time per Randell AVILA. [facility] 01-12-2024 Hospital Discharg e instructions Katlyn [...] PM EDT Dr. Heredia's office number is [phone], option #2 for the nurse. If after hours, please contact the main hospital number, and ask for Dr. Heredia's on-call provider. Contact Office ([phone]) if: > Any falls or injuries > [...] be sent through Care Everywhere.acetaminophen and hydrocodone (Scottish)acetaminophen (oral) (Scottish)docusate (oral/rectal) (Scottish)apixaban (Scottish)Blood Thinners: How to Prevent Bleeding ([facility]) (Scottish)documented in this encounter [facility] 01-12-2024 Nurse Note No changes noted from previous assessment by this RN except what is detailed in coordinating flow sheets. Patient denies needs at this time. Call light is in reach. [facility] 01-12-[address] SCHEDULING ASSISTANT rounding. He discussed the quality of her [...] evaluate and clear explain options on discharge. [facility] 01-12-2024 Nurse Note Pt assessment remains unchanged with any exceptions noted in flowsheets. Pt is resting in bed, respirations even and unlabored. Fresh ice pack applied to left hip. DEYSI dressing intact and flashing green. Pt c/o 10/10 pain to left hip. [place] given - see MAR. Pt denies any further needs at this time. Call light within reach. [facility] 01-11-2024 Nurse Note Pt assessment remains unchanged with any exceptions noted in flowsheets. Pt is resting in bed, respirations even and unlabored. Fresh ice pack applied to left hip. DEYSI dressing intact and flashing green. Pt c/o 8/10 pain to left hip, [place] given - see MAR. Pt denies any further needs at this time. Call light within reach. [facility] 01-11-2024 Nurse Note Pt assessment complete and [...] at this time. Call light within reach. [facility] 01-11-2024 Progress note Formatting of t his note might be different from the original. Pt nauseated at this time IS not done RN aware and will give medication for nausea and then instruct pt. [facility] 01-11-2024 Consult note Associated Order (s): IP CONSULT TO GENERAL MEDICINE Medical consultation Patient is an 83-year-old female who presents for total hip arthroplasty. She was at her baseline state of health prior to surgery and was medically optimized by her primary care provider and wind field service manager. Preop testing notable for an INR of [...] Preop EKG at baseline. Known diastolic dysfunction. Steel Estimator did clear her for surgery. She had [...] Partner Violence: Unknown (09/09/2023) Received from [facility] Safety & Environment Fear of Current [...] minutes total time. Luis Monte MD 01/11/2024 [facility] 01-11-2024 Nurse Note Patient returned to floor [...] liquid menu with patient. Patient requested lemon [place] soda. Soda given. Encouraged patient to try and rest. Family at the bedside. Safety education given. Call light within reach. Bed alarm set. [facility] 01-11-2024 Nurse Note Abductor pillow in place. Ice pack to Left hip [facility] 01-11-2024 Nurse Note Patient transported to PACU with Chava PATHAK. Reports given to Nely HERNANDEZ at 1759H. OR 4 temp 67.2F, humidity 40% documented in this encounter [facility] 01-11-2024 Nurse Surgical operation note Patient transported to PACU with Chava PATHAK. Reports given to Nely HERNANDEZ at 1759H. [facility] 01-11-2024 Surgery Postoperative evaluation and management note POST OPERATIVE/PROCEDURE NOTE Cuate Goodman 83 y.o. female [id number] SURGEON Surgeons and Role: * Erik Heredia MD - Primary DIGITAL PHOTOGRAPHIC PRINTER RENE Mnoique ANESTHESIOLOGIST ADMINISTRATIVE DIRECTOR: Chava Linares APRN-ZO SURGICAL STAFF Speech Communication Instructor: Shantell Flood RN; Rebecca Baltazar RN; Magdalene Gilbert RN Nurse Practitioner: RENE Monique Workplace Rehabilitation Officer: Delores German Scrub Person: SALLY Kilgore; Zari [...] Implant Name Type Inv. Item Serial No. Saxophone Teacher Lot No. LRB No. Used Action Thorpe Gription Acetabular Shell Sector 52mm OD [employer] [id number] Left 1 Implanted Thorpe ALTRX Polyethylene Acetabular Liner Neutral 36mm ID 52mm OD [employer] [id number] Left 1 Implanted Cementralizer Stem Centralizer 10.5mm Cemented [employer] [place] Observer [id number] Left 1 Implanted [place] Femoral Stem 12/14 Taper Cemented Size 5 STD 120mm [employer] [id number] Left 1 Implanted [place] LV 1x40 [id number] Left 1 Implanted [place] LV 1x40 [id number] Left 1 Implanted [place] R 1x40 [id number] Left 1 Implanted Biolox Delta Ceramic Femoral Head +1.5 36mm MERLYN 12/14 Taper [employer] [id number] Left 1 Implanted Suture [place], [employer]Composite Corkscrew FT,Vented with 1.3mm White/blue and white/black suture tape [id number] Left 1 Implanted Ti Trochanteric Reattachment Device w/Cables/Standard-Ster [employer] [id number] Left 1 Implanted SPECIMENS ID Type Source Tests Collected by Time Destination 1 : Left Femoral head Permanent TISSUE SURGICAL PATHOLOGY REQUEST Erik Heredia MD 01/11/[address] APRN-MARGARITA January 11, 2024 5:48 PM [facility] 01-11-2024 Nurse Surgical operation note OR 4 temp 67.2F, humidity 40% [facility] 01-11-2024 Note Shantell Dasilva RN 01/10 [...] and locked. [X] Tray table within reach. [facility] 01-11-2024 Procedure note Associated Ord er(s): [...] and locked. [X] Tray table within reach. [facility] 01-11-2024 Procedure note Associated Ord er(s): [...] table within reach. documented in this encounter [facility] 12-22-2023 Note [facility] Note Reason for cardiology [...] bundle branch block. Echocardiographic study 11/19/2022 at [facility] Normal left ventricle systolic function, ejection fraction 50 to 55%, abnormal septal motion, diastolic function is indeterminate Right ventricle appears enlarged with preserved systolic function Mild mitral regurgitation Mild tricuspid rotation Moderately elevated right-sided pressure Mildly dilated ascending aorta 4.21 cm Echo 05/17/2020 at [facility] Normal left ventricle systolic function, ejection fraction above 55% Grade 2 diastolic dysfunction Mild mitral rotation Lexiscan nuclear stress test 05/15/2020 at [facility] No acute or reversible ischemia Small anterior wall fixed defect versus breast attenuation artifact Normal wall motion and ejection fraction 65%. Thank you Chest [facility] 11[facility] Small pulmonary embolus w (more content not included)... [facility] 12-16-2023 Nurse Note 12/16/23 0396 Information Source Information Source patient Contact Information Charging Crane Operator Name Chelsea Menezes RN Living Environment Lives [...] Employment/Financial Employed? Retired Initial Discharge Planning DME ([employer]) Walker (has FWW) CM met with patient this date to discuss post-surgical discharge plans. Patient states that return home with family assist. Patient has wheeled walker. Patient denies any other questions or needs at this time. CM to continue to follow and assist with discharge plans. [facility] [employer] [facility] 12-01-2023 History of Presen t illness [...] 12/01/2023 2:14 PM Patient: Cuate Goodman MR#: [id number] : 1940 Age: 83 y.o. Referring Physician: Truman Boo Jr., DO Insurance: Payor: MEDICARE AETNA HMO OR PPO / Plan: MEDICARE AETYotpo PPO / Product Type: *No Product type* [...] pain. She is an est patient of [employer] (history of right ANGELIQUE by myself approx [...] a left total hip arthroplasty for optimal residential management. PHYSICAL EXAM: This is an alert, [...] joint space, subchondral sclerosis, osteophyte formation, and cxhx-kl-vloh contact. IMPRESSION: 1.) Severe symptomatic end-stage arthritis, [...] of limb, and ultimately loss of life. care home expectations, risks and general implant survivorship were also discussed. Despite these risks, the patient would like to proceed with surgical planning. Today, we will initiate the pre-surgical process including nasal MRSA screening, scheduling an appointment for [facility] [place] and the potential surgical date, and reviewing [...] Unknown Penicillins Hives documented in this encounter [facility] Evaluation + Plan note No data available for this section [facility] Evaluation note Diagnosis Pain of left hip- Primary Osteoarthritis of left hip, unspecified osteoarthritis type [facility] S/P total hip arthroplasty- Primary Hip joint replacement by other means Preop testing Preoperative examination, unspecified Pain in other specified joint Osteoarthritis of left hip, unspecified osteoarthritis type Acute postoperative pain of left hip Status post total replacement of left hip [facility] S/P total left hip arthroplasty- Primary [facility] Diagnosis S/P total left hip arthroplasty- Primary S/P total left hip arthroplasty 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 Acquired absence of kidney [facility] Diagnosis S/P total left hip arthroplasty- Primary S/P total left hip arthroplasty 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 Acquired absence of kidney [facility] S/P total left hip arthroplasty- Primary [facility] Diagnosis Primary osteoarthritis of left hip- Primary Primary localized osteoarthrosis, pelvic region and thigh [facility] Work Phone: Progress note No data available for this section [facility] Summary Purpose Family History No Family History Records FoundNo Family History Records FoundNo Family History Records FoundNo Family History Records FoundNo Family History Records FoundNo Family History Records Found No data available for this section No Family History Records FoundNo Family History Records Found Advance Directives No Advanced Directives Records Found Date Activated Date Inactivated Comments 01/19/2024 5:10 PM Date Activated Date Inactivated Comments 01/11/2024 5:47 PM 01/19/2024 5:10 PM Date Activated Date Inactivated Comments 01/19/2024 5:10 PM Date Activated Date Inactivated Comments 01/11/2024 5:47 PM 01/19/2024 5:10 PM Advance Directive Response Recorded Date/ Time Advance Directives No August 8:27am Reason for Referral Specialty Diagnoses / Procedures Referred By Abiodun santana Referred To Contact Diagnoses Pain of left hip Procedures XR HIP WITH PELVIS LEFT Erik Heredia MD [address] [place] [address] Referral ID Status Reason Start Date Expiration Date V isits Requested Visits Authorized [id number] New Request 11/19/2023 12/13/2024 1 1 Specialty Diagnoses / Procedures Referred By Abiodun santana Referred To Contact Procedures ECG Luis Monte MD [address] [place] [address] Referral ID Status Reason Start Date Expiration Date V isits Requested Visits Authorized [id number] New Request 01/13/2024 02/06/2025 1 1 Specialty Diagnoses / Procedures Referred By Contac t Referred To Contact [facility] [address] [place] [address] Referral ID Status Reason Start Date Expiration Date Visits Re quested Visits Authorized Specialty Diagnoses / Procedures Referred By Contac t Referred To Contact Diagnoses S/P total left hip arthroplasty Procedures XR HIP WITH PELVIS LEFT Paige Damon [address] [place] [address] Referral ID Status Reason Start Date Expiration Date V isits Requested Visits Authorized [id number] New Request 01/26/2024 02/19/2025 1 1 Referral ID Status Reason Start Date Expiration Date V isits Requested Visits Authorized [id number] New Request 02/17/2024 03/13/2025 1 1 Additional Source Comments INFORMATION SOURCE (unrecogn ized section and content) DATE CREATED AUTHOR 11/20/2022 [facility] DATE CREATED AUTHOR AUTHOR'S ORGANIZ ATION 09/19/2023 [facility] DATE CREATED AUTHOR AUTHOR'S ORGANIZ ATION 11/07/2023 [facility] EPIC DATE CREATED AUTHOR AUTHOR'S ORGANIZ ATION 01/10/[address] [facility] DATE CREATED AUTHOR AUTHOR'S ORGANIZ ATION 02/14/2024 [facility] DATE CREATED AUTHOR AUTHOR'S ORGANIZ ATION 03/20/2024 [facility] DATE CREATED AUTHOR AUTHOR'S ORGANIZ ATION 07/31/2024 [facility] DATE CREATED AUTHOR AUTHOR'S ORGANIZ ATION 08/01/[address] [facility] Reason for Visit (unrecogniz ed section and content) Specialty Diagnoses / Procedures Referred By Contac t Referred To Contact Diagnoses Pain of left hip Procedures XR HIP WITH PELVIS LEFT Erik Heredia MD [address] [place] [address] Referral ID Status Reason Start Date Expiration Date V isits Requested Visits Authorized [id number] New Request 11/19/2023 12/13/2024 1 1 Reason Comments Pain Specialty Diagnoses / Procedures Referred By Jaclynac t Referred To Contact Diagnoses Osteoarthritis of left hip, unspecified osteoarthritis type Osteoarthritis of left hip, unspecified osteoarthritis type [M16.12] Procedures WI ARTHRP ACETBLR/PROX FEM PROSTC AGRFT/ALGRFT ARTHROPLASTY HIP TOTAL LATERAL APPROACH Erik Heredia MD [address] [place] [address] Referral ID Status Reason Start Date Expiration Date Visits Re quested Visits Authorized [id number] 12/06/2023 1 1 Reason Comments Surgical Follow-up 01/11/24 LTHA-AL Specialty Diagnoses / Procedures Referred By Abiodun t Referred To Contact Diagnoses S/P total left hip arthroplasty Procedures XR HIP WITH PELVIS LEFT Paige Damon [address] [place] [address] Referral ID Status Reason Start Date Expiration Date V isits Requested Visits Authorized [id number] New Request 01/26/2024 02/19/2025 1 1 Referral ID Status Reason Start Date Expiration Date V isits Requested Visits Authorized [id number] New Request 02/17/2024 03/13/2025 1 1 Reason Comments Post Op Visit 01/11/24 Weight beari ng check left total hip arthroplasty Post Op Visit Specialty Diagnoses / Procedures Referred By Jaclynac t Referred To Contact Diagnoses Hx of total hip arthroplasty, left Procedures XR HIP WITH PELVIS LEFT Ave Mackey APRN-CNP [address] [place] [address] Referral ID Status Reason Start Date Expiration Date V isits Requested Visits Authorized [id number] New Request 03/07/2024 04/01/2025 1 1 Reason Comments Pain Care Teams (unrecognized sec tion and content) Software Development Project Manager Relationship Specialty Start Date End Date Truman Boo Jr., DO [address] [facility] [address] [place] [address] PCP - General Orthopaedic Surgery 11/04/23 Software Development Project Manager Relationship Specialty Start Date End Date Rajeev Arriaga DO Truman [address] [facility] [address] [place] [address] PCP - General Orthopaedic Surgery 11/04/23 12/02/23 Software Development Project Manager Relationship Specialty Start Date End Date KuhnTian [address] [place] [address] PCP - General Family Medicine 12/03/23 Software Development Project Manager Relationship Specialty Start Date End Date Tian Kuhn [address] [place] [address] PCP - General Family Medicine 12/03/23 Software Development Project Manager Relationship Specialty Start Date End Date Jacob uKhnelDO [address] [place] [id number] PCP - General Family Medicine 12/03/23 Software Development Project Manager Relationship Specialty Start Date End Date KuhnTian [address] [place] [address] PCP - General Family Medicine 12/03/23 Software Development Project Manager Relationship Specialty Start Date End Date BamTian [address] [place] [address] PCP - General Family Medicine 12/03/23 Software Development Project Manager Relationship Specialty Start Date End Date Jacob Kuhnbrenda [address] [place] [address] PCP - General Family Medicine 12/03/23 Software Development Project Manager Relationship Specialty Start Date End Date Tian Kuhn DO [address] [place] [address] PCP - [facility] 12/03/23 Software Development Project Manager Relationship Specialty Start Date End Date Tian Kuhn DO [address] [place] [address] PCP - [facility] 12/03/23 Team Status: Active Member Role Status Dates Samuel Rivas DO Attending Provider Active Sta rt: May 01, 2024 End: May 02, 2024 Jayme Shafer MD Referring Provider Active Sta rt: May 01, 2024 End: May 02, 2024 Team Status: Inactive Member Role Status Dates Tony Casas DO Attending Provider Active S tart: July 18, 2024 End: July 18, 2024 Scheduled Active and Recently Administ ered Medications [...] anticoagulants (e.g. enoxaparin, heparin)., Indications: Venous Thromboembolism 2231 (Given - Provider: Fernanda Cantor RN) 0920 (Given - Provider: Amairani Lim, RN)2237 (Given - Provider: Ольга Morales RN) 0944 [...] RN) 0919 (Given - Provider: Amairani Lim, MARY)1614 (Given - Provider: Amairani Lim RN) 0905 [...] 0920 (Given - Provider: Amairani Lim RN) 09 (Given - Provider: Irene Alejandro LPN) Potassium [...] 0919 (Given - Provider: Amairani Lim RN) 0903 [...] Fernanda Cantor RN)0807 (Stopped - Provider: Amairani Lim RN) PRN Medication Order 01/17/2024 01/18/2024 01/19/2024 Acetaminophen (TYLENOL) tablet 650 mg 650 mg, Oral, EVERY 4 HOURS NEEDED, Starting on Wed01/11/24 at 1831, Until Wed01/19/24 at 1423, Mild Pain, Maximum dose of acetaminophen is 4000 mg from all sources in 24 hours, Post-op/Post-Proc bisacodyl (DULCOLAX) suppository 10 mg 10 mg, Rectal, DAILY NEEDED, Starting on Wed01/11/24 at 1831, Until Wed01/19/24 at 1423, constipation, Post-op/Post-Proc hydroCODone-acetaminophe n (NORCO) 5-325 MG per tablet 1-2 tablet 1-2 tablet, Oral, EVERY 4 HOURS NEEDED, Starting on Wed01/13/24 at 1029, Until Wed01/19/24 at 1423, Severe Pain, Post-op/Post-Proc 0643 (Given - Provider: Angelita Pepe, MARY)1109 (Given - Provider: Merry Goodwin RN)1758 (Given - Provider: Merry Goodwin RN)2235 (Given - Provider: Fernanda Cantor RN) 0533 (Given - Provider: Fernanda Cantor RN) 0035 (Given - Provider: Ольга Morales RN)1033 (Given - Provider: Irene Alejandro LPN) HYDROmorphone [...] Moderate Pain 1945 (Given - Provider: Fernanda Cantor, RN) 0920 (Given - Provider: Amairani Lim, RN)1614 (Given - Provider: Amairani Lim, RN) Zolpidem (AMBIEN) tablet 5 mg 5 mg, Oral, DAILY AT BEDTIME NEEDED, Starting on Wed01/11/24 at 1831, Until Wed01/19/24 at 1423, Sleep, Post-op/Post-Proc 2231 (Given - Provider: Fernanda Cantor, MARY) 0035 (Given - Provider: Ольга Morales RN) [...] LPN) 0842 (Given - Provider: Ramona Mckeon RN)211 (Given - Provider: Patricia Malin LPN) [...] RN)2111 (Given - Provider: Patricia Malin LPN) 08 (Given - Provider: Cherri Masterson LPN) Docusate (COLACE) capsule 100 mg 100 mg, Oral, EVERY 12 HOURS, First dose (after last modification) on Wed01/22/24 at 2100, Until Discontinued 0838 (Given - Provider: Anisa Newell LPN)2029 (Given - Provider: Kimber Sanchez LPN) 08 (Given - Provider: Ramona Mckeon RN)2116 (Not Given - Provider: Patricia Malin LPN - Reason: Patient/family refused) 806 (Not Given - Provider: Cherri Masterson LPN - Reason: Patient/family refused - Comment: Patient refused) ferrous sulfate tablet 325 mg 325 mg, Oral, DAILY, First dose on Wed01/21/24 at 1330, Until Discontinued 0838 (Given - Provider: Anisa Newell LPN) 0842 (Given - Provider: Ramona Mckeon RN) 08 (Given - Provider: Cherri Masterson LPN) fluconazole (DIFLUCAN) tablet 150 mg 150 mg, Oral, DAILY, First dose on Wed02/09/24 at 2014, Until Discontinued, Swallow tablet whole; do not crush, split or chew. Contact pharmacy if alternate route or dose is needed. 2035 (Given - Provider: Kimber Sanchez LPN) 0841 (Given - Provider: Ramona Mckeon RN) 08 [...] Topical, DAILY AT BEDTIME, First dose on Wed02/03/24 at 2100, Until Discontinued, Wash incision with [...] refused) 0842 (Not Given - Provider: Ramona Mckeon RN - Reason: Patient/family refused)2116 (Not Given - Provider: Patricia Malin LPN - Reason: Patient/family refused) 08 (Not Given - Provider: Cherri Masterson [...] LPN) 0615 (Given - Provider: Inge Medeiros RN)2004 (Given - Provider: Patricia Malin LPN) 1252 [...] 222 (Given - Provider: Kimber Sanchez LPN) 235 (Given - Provider: Patricia Malin LPN) Scheduled [...] LPN) 0842 (Given - Provider: Ramona Mckeon RN)2113 (Given - Provider: Patricia Malin LPN) 08 (Given - Provider: Cherri Masterson LPN) clotrimazole-betamethason e (LOTRISONE) 1-0.05 % cream Topical, 2 TIMES DAILY, First dose on Wed02/09/24 at 2014, Until Discontinued 2215 (Not Given - Provider: Kimber Sanchez LPN - Reason: Other - Comment: PENDING CONSULT FROM WOUND CARE) 08 (Not Given - Provider: Ramona Mckeon RN - Reason: Other - Comment: awaiting wound consult to okay cream)1620 (Given - Provider: Ramona Mckeon RN) 808 (Not Given - Provider: Cherri Masterson LPN - Reason: Patient/family refused) Cyclobenzaprine (FLEXERIL) tablet 5 mg 5 mg, Oral, EVERY 12 HOURS, First dose (after last modification) on 01/22/24 at 2100, Until Discontinued 0838 (Given - Provider: Anisa Nweell LPN)2029 (Given - Provider: Kimber Sanchez LPN) 0842 (Given - Provider: Ramona Mckeon RN)2111 (Given - Provider: Patricia Malin LPN) 08 (Given - Provider: Cherri Masterson LPN) Docusate (COLACE) capsule 100 mg 100 mg, Oral, EVERY 12 HOURS, First dose (after last modification) on 01/22/24 at 2100, Until Discontinued 0838 (Given - Provider: Anisa Newell LPN)2029 (Given - Provider: Kimber Sanchez LPN) 0842 (Given - Provider: Ramona Mckeon, MARY)2116 (Not Given - Provider: Patricia Malin LPN - Reason: Patient/family refused) 08 (Not Given - Provider: Cherri Masterson [...] 0841 (Given - Provider: Ramona Mckeon RN) 08 (Given - Provider: Cherri Masterson LPN) Lisinopril (PRINIVIL) tablet 5 mg 5 mg, Oral, DAILY, First dose on 01/30/24 at 0900, Until Discontinued, Hold if SBP [...] 0531 (Given - Provider: Kimber Sanchez LPN) 06 (Given - Provider: Inge Medeiros RN) 0522 (Given - Provider: Patricia Malin LPN) Polyethylene glycol (MIRALAX) packet 17 g 17 g, Oral, EVERY 12 HOURS, First dose (after last modification) on 01/22/24 at 0900, Until Discontinued 0834 (Not Given - Provider: Anisa Newell LPN - Reason: Patient/family refused)2029 (Given - Provider: Kimber Sanchez LPN) 08 (Given - Provider: Ramona Mckeon, MARY)2112 (Given - Provider: Patricia Malin LPN) 08 (Not Given - Provider: Cherri Masterson LPN - Reason: Patient/family refused - Comment: Patient refused) Povidone-Iodine (PROFEND) 10 % swab 1 Application 1 Application, Topical, DAILY AT BEDTIME, First dose on Wed02/03/24 at 2100, Until Discontinued, Wash incision with [...] 08 (Given - Provider: Cherri Masterson LPN) PRN [...] 2226 (Given - Provider: Kimber Sanchez LPN) 9818 (Given - Provider: Patricia Malin LPN) lactulose [...] at 1709, Until Wed02/11/24 at 1545, Sleep 2226 (Given - Provider: Kimber Sanchez LPN) 4461 (Given - Provider: Patricia Malin LPN) Goals (unrecognized section and content) Goals may be documented in a n alternate section No data available for this section FOR RECORDS PERTAINING TO PATIENTS WHO ARE [...] BE BASED ON THE PRIMARY CLINICAL RECORDS. [facility]. provides no warranty or guarantee of the accuracy or completeness of information in this document.
[2024-08-09 12:46] LABS: INR 1.08; Partial Thromboplastin Time 25.4 sec (22.3-36.2); Prothrombin Time 11.4 sec (9.0-11.6)
[2024-08-09] MEDS: LACTATED RINGER'S SOLUTION 1,000 ML 50 ML IV (12:59)
--- NOTE | 2024-08-09 13:15 | XR_ITS ---
[address] [address] Patient Name: CUATE GOODMAN MRN: [id number] date: 1940 Sex: F Assigned Patient Location: [facility] Current Patient Location: [place] Accession/Order Number: [id number] Exam Date: 08/09/2024 13:29 Report Date: 08/10/2024 06:00 At the request of: FARRAH GUZMAN Procedure: XR urethrogram retrograde EXAM: XR urethrogram retrograde HISTORY: Left retrograde, left stent placement COMPARISON: None. TECHNIQUE: Intraoperative spot fluoroscopic image. FINDINGS: Single spot fluoroscopic image shows a left ureteral stent with proximal end coiled over the region of the left renal pelvis and proximal end over region of bladder. IVC filter. Bilateral hip replacements. XR/XR urethrogram retrograde IMPRESSION: 1. Left ureteral stent placement. Electronically authenticated by: EYAD FREITAS Date: 08/10/2024 06:00
[2024-08-09] MEDS: CEFAZOLIN SODIUM 2 GM/50 ML D5W PREMIX IV (13:22)
[2024-08-09] MEDS: IOHEXOL 240 MG/ML - 50 ML VIAL INJ (14:35)
--- NOTE | 2024-08-09 15:00 | P.URON_ITS ---
Urology Surgery Operative Note Operative Note Procedure Date: 08/09/24 Time Out Performed: yes Pre-op Diagnosis: 1. Left ureteral stone, 2. Left kidney stone Post-op Diagnosis: same as pre-op Procedures performed: Cystoscopy, left retrograde pyelogram, ureteroscopy laser lithotripsy/stone extraction of ureteral and kidney stones, stent exchange Anesthesia: General-LMA (Dr. Shelley) Primary Surgeon: Cyn Garza Complications: none Estimated blood loss (mL): 0 Findings: Radiopaque stones in UPJ and lower pole. L UPJ acute angle, inflammation from stone. 8 mm ureteral stone pushed into kidney, 3 lower pole stones 3-6 mm each, underwent uncomplicated laser lithotripsy and stone extraction L RPG - no hydronephrosis, extravasation or other filling defects at end of case Specimens: left kidney stones Drains: 6Fr x 24 cm JJ left ureteral stent Incision: none Indications for Procedures: 83 year old female with a solitary kidney was recently diagnosed with 8 mm left UPJ stone with hydronephrosis s/p cystoscopy, left ureteral stent placement 07/18/24. Additional 6 mm renal pelvis stone noted on CT. After discussion of ri sks/benefits of management options, the patient elected to proceed with cystoscopy, left retrograde pyelogram, ureteroscopy with laser lithotripsy/stone extraction, ureteral stent exchange under general anesthesia. Risks were discussed including but not limited to bleeding, pain, infection, damage to surrounding structures, inability to treat the stone/place a stent, and need for additional procedures. The patient understands the stent is not permanent and needs to be removed or exchanged within 3 months to prevent encrustation, infection, invasive procedures and/or permanent renal damage. Detailed description of Procedure: After informed consent was obtained, the patient was brought to the operating room and transferred onto the operating table in supine position. Sequential compression devices were placed on bilateral lower extremities. The patient received the appropriate dose of preoperative IV antibiotics and general anesthesia was induced. They were positioned in modified dorsolithotomy with the appropriate pressure points padded, prepped, and draped in the usual sterile fashion for this procedure. An operative safety timeout was performed confirming the patient's identity, laterality and procedure, and all present agreed to proceed. I began by inserting a 22 Albanian rigid cystoscope with 30 degree lens into the patient's urethra and bladder without difficulty. There were no bladder tumors, lesions, or stones. Bilateral ureteral orifices were orthotopic and patent. I turned my attention to the left ureteral orifice and brought the indwelling stent to the meatus. A hybrid wire was inserted into the stent up to the renal pelvis confirmed on fluoroscopy and the stent was removed without difficulty. Radiopaque stones were noted in UPJ and lower pole kidney. An 11/13 Albanian by 36 cm ureteral access sheath was inserted over the wire in a sequential fashion to gain access to the stone. Next a flexible ureteroscope was inserted through the sheath and advanced until the stone was reached. A 275 ?m thulium laser fiber was used to break the stone into fragments which were then removed with a 1.8 tipless nitinol basket. After the stone was adequately treated, a full renoscopy was performed confirming no significant residual stones or significant fragments remained. Tiny fragments < 1 mm and dust remained. Contrast was injected to assist with mapping for the renoscopy. The wire was reinserted and a pull down ureteroscopy was performed confirming no stones remained in the ureter. Contrast was injected for retrograde pyelogram confirming no extravasation of contrast, filling defects or hydronephrosis. The wire was backloaded through the cystoscope and 6 Fr x 24 cm JJ ureteral stent was advanced over the wire, noting adequate curl in the renal pelvis and bladder on fluoroscopic and direct visualization. The bladder was drained and inspected one final time to ensure adequate position of stent and no undue trauma to the bladder was done. The stones were sent for pathology and the cystoscope was removed. The patient tolerated the procedure well without complication. The patient was awakened from anesthesia and sent to PACU in stable condition. Plan: Admit for observation due to patient's age, comorbidities, and lives alone. Follow up in 1-2 weeks for in-office cystoscopy, stent removal. Ok to restart Eliquis in 24 hours Other Provider present: No Post Operative care instructions: See discharge instructions Attending Doc Confirm Attending Attestation: Yes
[2024-08-09 15:24] LABS: Basophils Percent Auto 0.6 % (0.2-2.0); Eosinophils Absolute Auto 0.1 10^3/uL (0.0-0.7); Eosinophils Percent Auto 0.8 % (0.9-7.0); Hematocrit 38.3 % (36.0-48.0); Hemoglobin 12.1 g/dL (12.0-16.0); Immature Granulocytes Abs Auto 0.02 10^3/uL (0.00-0.03); Immature Granulocytes Pct Auto 0.3 % (0.0-0.5); Lymphocytes Absolute Auto 1.5 10^3/uL (1.2-3.8); Mean Corpuscular HGB Conc 31.6 g/dL (29.9-35.2); Mean Corpuscular Hemoglobin 30.9 pg (26.7-34.0); Monocytes Absolute Auto 0.6 10^3/uL (0.3-0.8); Monocytes Percent Auto 9.9 % (1.7-12.0); Neutrophils Absolute Auto 4.2 10^3/uL (1.4-6.5); Neutrophils Percent Auto 65.4 % (43.0-75.0); Platelet Count 226 10^3/uL (150-450); Red Blood Count 3.91 10^6/uL (4.20-5.40); White Blood Count 6.4 10^3/uL (4.0-11.0)
[2024-08-09 15:55] LABS: Alanine Aminotransferase 9 U/L (14-59); Albumin Globulin Ratio 0.8; Alkaline Phosphatase 87 U/L (46-116); Anion Gap 10.4; Aspartate Amino Transferase 18 U/L (15-37); Bilirubin Total 0.4 mg/dL (0.2-1.0); Calcium 9.3 mg/dL (8.5-10.1); Carbon Dioxide 30.7 mmol/L (21.0-32.0); Chloride 104 mmol/L (98-107); Estimated GFR (African America >60 (>=60 mL/min/1.73m^2); Estimated GFR (Non-African Ame 57 (>=60 mL/min/1.73m^2); Globulin 3.8 g/dL; Glucose 100 mg/dL (74-106); Potassium 4.1 mmol/L (3.5-5.1); Sodium 141 mmol/L (136-145); Total Protein 6.8 g/dL (6.4-8.2)
--- NOTE | 2024-08-09 15:55 | PC.NURSE ---
Urine soaked pad removed from underneath patient; thought she had to urinate, but changed her mind
[2024-08-09] MEDS: OXYCODONE HCL 5 MG TABLET PO (18:29)
[2024-08-09] MEDS: ACETAMINOPHEN 325 MG TABLET 650 MG PO (18:29)
[2024-08-09] MEDS: CEFTRIAXONE 1,000 MG in 0.9 % SODIUM CHLORIDE 50 ML 100 MG IV (18:29)
--- NOTE | 2024-08-09 18:54 | P.HP_ITS ---
HPI H&P: HPI History of Present Illness Chief complaint: URETERAL STONE WITH HYDRONEPHROSIS Narrative: 83 y o female was scheduled for outpatient cystoscopy, lithotripsy, stone extraction and ureteral stent placement for left sided hydronephrosis from obstructing renal stone. Post op patient was feeling overall weak and tired and after consultation with Urology, patient was admitted for observation. 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 Patient was seen post operatively in PACU and reported mild left flank pain and overall weak/tired. She was admitted to our facility about 2 weeks ago for left sided obstructing ureteral stone, associated pyelonephritis and was discharged after ureteral stent placement, on oral abx and followed up as outpatient with Urology and was subsequently scheduled for the procedure today. Opioid HPI Opioid Management Most Recent Pain and Opioid Data: Last Pain Scale 7 08/09/24 18:29 08/09/24 Last Pain Intensity 4 07/18/24 16:56 07/18/24 Last Pain Assessment 08/09/24 18:00 Last MAR Pain Assessment 08/09/24 18:29 Last ORT Total Score 0 08/09/24 16:18 08/09/24 Last ORT Risk Category Low Risk 08/09/24 16:18 08/09/24 Review of Systems ROS Status of ROS 10 or more systems reviewed and unremark able except as noted in history and below [facility] Medical History (Updated 08/09/24 @ 19:02 by Shaikh Joselito MD) History of pulmonary embolism ?Z86.711 - Personal history of pulmonary embolism (ICD-10) MRSA (methicillin resistant Staphylococcus aureus) ?A49.02 - Methicillin resistant Staphylococcus aureus infection, unspecified site (ICD-10) Arthritis ?M19.90 - Unspecified osteoarthritis, unspecified site (ICD-10) Pulmonary embolism ?I26.99 - Other pulmonary embolism without acute cor pulmonale (ICD-10) GERD (gastroesophageal reflux disease) ?K21.9 - Gastro-esophageal reflux disease without esophagitis (ICD-10) Anticoagulant long-term use ?Z79.01 - long-term (current) use of anticoagulants (ICD-10) Flank pain ?R10.9 - Unspecified abdominal pain (ICD-10) Acquired solitary kidney ?Z90.5 - Acquired absence of kidney (ICD-10) Urinary tract infection ?N39.0 - Urinary tract infection, site not specified (ICD-10) Kidney stone ?N20.0 - Calculus of kidney (ICD-10) Iron deficiency anemia ?D50.9 - Iron deficiency anemia, unspecified (ICD-10) Right bundle branch block ?I45.10 - Unspecified right bundle-branch block (ICD-10) Aneurysm of aorta ?I71.9 - Aortic aneurysm of unspecified site, without rupture (ICD-10) Surgical History (Updated 08/01/24 @ 13:03 by Abby Hall NP) History of revision of total knee arthroplasty ?Z96.659 - Presence of unspecified artificial knee joint (ICD-10) S/P total knee arthroplasty ?Z96.659 - Presence of unspecified artificial knee joint (ICD-10) History of total knee arthroplasty ?Z96.659 - Presence of unspecified artificial knee joint (ICD-10) History of bilateral total hip arthroplasty ?Z96.643 - Presence of artificial hip joint, bilateral (ICD-10) H/O: hysterectomy ?Z90.710 - Acquired absence of both cervix and uterus (ICD-10) H/O left knee surgery ?Z98.890 - Other specified postprocedural states (ICD-10) H/O kidney removal ?Z90.5 - Acquired absence of kidney (ICD-10) History of hip surgery ?Z98.890 - Other specified postprocedural states (ICD-10) History of cholecystectomy ?Z90.49 - Acquired absence of other specified parts of digestive tract (ICD- 10) Family History (Updated 05/01/24 @ 21:32 by Andressa Lea) Father Family history of CHF (congestive heart failure) Family history of COPD (chronic obstructive pulmonary disease) Family history of cancer Family history of hypertension Family history of myocardial infarction Mother Family history of cancer Grandmother Family history of cancer Family history of stroke Granddaughter Family history of diabetes mellitus Social History (Updated 08/01/24 @ 13:03 by Abby Hall NP) Within the past year, how often did you have a drink containing alcohol: never Score interpretation: A score less than 3 is consistent with normal alcohol consumption. 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 Highest level of school completed/degree received: 11th grade Are you now , , , , never or living with a partner: In a typical week, how many times do you talk on the telephone with family, friends, or neighbors: 3 or more times per week How often do you get together with friends or relatives: twice per week How often do you attend pentecostalism or advent services: never Do you belong to any clubs or organizations such as pentecostalism groups unions, [employer] or athletic groups, or school groups: no Total score: 1 Score interpretation: A score of less than or equal to 1 indicates the most socially isolated. Little interest or pleasure in doing things: nearly every day Feeling down, depressed, or hopeless: not at all Feel stressed/tense/nervous/anxious/difficulty sleeping: only a little Do you think of yourself as: straight/heterosexual Gender Identity: female Meds Home Medications and Allergies Home Medications ?Medication ?Instructions ?Recorded ?Confirmed ?Type allopurinol 100 mg tablet 100 mg PO DAILY 05/01/24 08/09/24 History apixaban 5 mg tablet (Eliquis) 5 mg PO Q12H 05/01/24 08/09/24 History magnesium oxide 400 mg (241.3 mg 400 mg PO BID 05/01/24 08/09/24 History magnesium) tablet omeprazole 20 mg capsule,delayed 20 mg PO .daily 05/01/24 08/09/24 History release cholecalciferol (vitamin D3) 125 5,000 unit PO DAILY 08/01/24 08/09/24 History mcg (5,000 unit) capsule mirabegron 50 mg tablet,extended 50 mg PO Q24H 08/01/24 08/09/24 History release 24 hr multivitamin (Daily Multi-Vitamin 1 tab PO DAILY 08/01/24 08/09/24 History tablet) vitamin B complex 1 tab PO DAILY 08/01/24 08/09/24 History cephalexin 500 mg capsule 500 mg PO Q12H start morning of 08/09/24 Rx stent removal 1 day #2 caps Allergies Allergy/AdvReac Type Severity Reaction Status Date / Time morphine Allergy Mild Vomiting Verified 08/01/24 12:33 Exam Constitutional Vital Signs, click to edit/add: Last Vital Signs Temp 97.5 F L 08/09/24 14:52 Pulse 64 08/09/24 15:22 Resp 18 08/09/24 15:22 BP 144/84 H 08/09/24 15:22 Pulse Ox 97 08/09/24 15:22 O2 Del Method Room Air 08/09/24 16:18 Documenting provider has reviewed patient's vital signs: yes Common normals: no apparent distress and oriented x3 General appearance: cooperative Respiratory Common normals: normal respiratory effort and clear to auscultation bilaterally Effort & inspection: able to speak in complete sentences Auscultation: clear to auscultation bilaterally Cardio Common normals: regular rate, S1 normal heart sound and S2 normal heart sound Rate: regular rate Heart sounds: S1 normal and S2 normal GI Common normals: Normal to inspection, nondistended, normoactive bowel sounds present, soft to palpation, non-tender and no hepatosplenomegaly Palpation: soft and no hepatosplenomegaly Extremity Common normals: no clubbing, cyanosis or edema Neuro Common normals: oriented x3, moves all extremities and no focal motor deficits Psych Common normals: mental status grossly normal, denies hallucinations, denies homicidal ideation and denies suicidal ideation Results Labs Labs: Short CBC 08/09/24 Range/Units 15:19 WBC 6.4 (4.0-11.0) 10^3/uL Hgb 12.1 (12.0-16.0) g/dL Hct 38.3 (36.0-48.0) % Plt Count 226 (150-450) 10^3/uL BMP 08/09/24 15:19 Sodium 141 Potassium 4.1 Chloride 104 Carbon Dioxide 30.7 BUN 16.0 Creatinine 0.94 Glucose 100 Calcium 9.3 Liver Function 08/09/24 Range/Units 15:19 Total Bilirubin 0.4 (0.2-1.0) mg/dL AST 18 (15-37) U/L ALT 9 L (14-59) U/L Alkaline Phosphatase 87 (46-116) U/L Albumin 3.0 L (3.4-5.0) g/dL Assessment and Plan Assessment and Plan (1) Hydronephrosis of left kidney: (2) Ureteral stone with hydronephrosis: (3) Left flank pain: (4) History of pulmonary embolism: Plan Patient admitted for post op pain control, monitoring. Started on empirical IV Rocephin. Oral Oxycodone as needed for pain. Hold Eliquis and can resume 24 hours after surgery as per Urology. Started on gentle IV hydration
[2024-08-09] MEDS: MAGNESIUM OXIDE 400 MG TABLET PO (20:51)
[2024-08-10 05:00] VITALS: BP 117/62; PULSE 78; TEMP 36.9; O2SAT 91
[2024-08-10 05:48] VITALS: O2SAT 94
[2024-08-10] MEDS: OMEPRAZOLE 20 MG CAPSULE.DR PO (05:48)
[2024-08-10] MEDS: OXYCODONE HCL 5 MG TABLET PO (06:30)
[2024-08-10] MEDS: ACETAMINOPHEN 325 MG TABLET 650 MG PO (06:31)
--- OUTSIDE RECORDS SUMMARY | 2024-08-10 07:12 | XMS_ITS | CCD ---
Author Organization [facility] CliniSydc Care Team Providers Care Motor Teacher Name Role Phone DR TIAN KUHN Primary Care Unavailable CUAUHTEMOC ., SELINA Attending Unavailable CUAUHTEMOC ., SELINA Admitting Unavailable WEST, DR KIMBER Lopez Consulting Unavailable ZIEBER, DR EYAD Hines Consulting Unavailable HAY ., DR STERN Consulting Unavailable KATKOSINDY Consulting Unavailable CUAUHTEMOC ., SELINA Consulting Unavailable KUHN, DR TIAN Krause Primary Care Unavailable KUHNTIAN WELCH Referring Unavailable KUHNTIAN WELCH Primary Care Unavailable KUHNTIAN WELCH Referring Unavailable KUHNTIAN Primary Care Unavailable KUHNTIAN Referring Unavailable KUHNTIAN Primary Care Unavailable JR. BOO GEORGE C Attending Unavaila meagan BOO JR., GEORGE C Referring Unavaila meagan Boo Jr., DO, George Primary Care Provider Rajeev Arriaga DO, George Primary Care Provider CEFERINO QUIÑONEZ Attending Unavailable Kuhn Tian CIFUENTES Primary Care Provider [phone] Kuhn Tian CIFUENTES Primary Care Provider [phone] REBECCA, MOHAN Admitting Unavailable REBECCAROBERTAN Attending Unavailable [...] Attending Unavailable KUHN, TIAN Primary Care Unavailable KRISTY DAMONA James Attending Unavailable BROCWELL, PAIGE M Referring Unavailable KUHN, TIAN Primary Care Unavailable MARISOL, PAIGE M Attending Unavailable MARISOL, PAIGE M Referring Unavailable KUHN, TIAN Primary Care Unavailable ABHI BALTAZAR Attending Unavailable YAN, ERIK Referring Unavailable KUHN, TIAN Primary Care Unavailable RAJEEV TRUMAN Alfonso Primary Care Unavailable YAN, ERIK Referring Unavailable YAN, ERIK Attending Unavailable KUHN, TIAN Primary Care Unavailable YAN, ERIK Referring Unavailable YAN, ERIK Attending Unavailable ERIK HEREDIA Admitting Unavailable Tony Casas DO Attending Provider Unavailab ERIK Hutton Primary Care Physician Unavail able Cyn Garza Attending Unavailable Cyn Garza Attending Unavailable Cyn Garza Attending Unavailable Cyn Garza Referring Unavailable Cyn Garza Attending Unavailable Cyn Garza Attending Unavailable Tony Casas Attending Unavailable Tony Casas Admitting Unavailable Tian Kuhn MD Unavailable [phone] Allergies Allergy Classification Reported Allergen(s) Allergy Type Date of Onset Reaction(s) Facility (5 sources) Morphine; 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: [MORPHINE] Drug Allergy 7 [facility] (13 sources) oxyCODONE; 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: [OXYCODONE] Drug Allergy 7 Nausea and Vomiting, GI intolerance [facility] (13 sources) Morphine; 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: [morphine] Drug Allergy 7 Nausea and Vomiting, Vomiting (disorder), GI intolerance [facility] (12 sources) Penicillins Propensity to adverse reactions to drug 4 [facility] (1 source) HYDROcodone Drug Allergy 4 Unknown [facility] Medications Current Medications Medication Drug Class(es) Dates [...] 01/11/2024 Active allopurinol 100 mg oral tablet (17 sources) Xanthine Oxidase Inhibitor Start: 07-28-2024 allopurinol 100 mg T ab Refills(s) 0 Start Date: 07/28/24 Status: Ordered Start: 01-12-2024 End: 02-11-2024 apixaban 5 mg oral tablet (19 sources) Factor Xa Inhibitor Start: 01-11-2024 End: 01-17-2024 take 2.5 mg by mouth every twelve hours in the morning 2.5 mg, Oral, EVERY 12 HOURS, First dose on Wed01/12/24 at 0900, Until Discontinued, Start in AM day after surgery, Indications: Venous Thromboembolism, Post-op/Post-Proc Start: 10-02-2023 End: 02-11-2024 Eliquis 5 mg oral tablet Ref ills(s) 0 Start Date: 07/28/24 Status: Ordered Cholecalciferol (13 sources) Vitamin D Start: 07-28-2024 [...] 02-11-2024 magnesium oxide 400 mg oral tablet (14 sources) Start: 07-28-2024 magnesium oxid e 400 mg Tab Refills(s) 0 Start Date: 07/28/24 Status: Ordered Start: 10-02-2023 magnesium oxid e (Mag-Ox) 400 (240 Mg) MG tablet 10/02/2023 Active Start: 10-02-2023 take 1 tablet by bharathi [...] day(s), # 30 tab(s), Refills(s) 11, Pharmacy: [facility]/pharmacy #[id number], 158, cm, 07/28/24 10:01:00 EST, Height/Length Dosing, [...] omeprazole 20 mg delayed release oral capsule (14 sources) Proton Pump Inhibitor Start: 10-02-2023 omeprazo le 20 mg Cap-DR Refills(s) 0 Start Date: 07/28/24 Status: Ordered 24 hr tolterodine tartrate 4 mg extended [...] Corticosteroid Start: 02-09-2024 End: 02-11-2024 bifidobacterium animalis [id number] unt / lactobacillus acidophilus [id number] unt oral capsule (2 sources) Start: 01-22-2024 [...] docusate sodium 50 mg / alberta osides, fci 8.6 mg oral tablet (5 sources) Start: [...] 01/19/2024 Discontinued (Stop Taking at Discharge) nystatin [id number] unt/ml topic al cream (8 sources) Polyene [...] Start: 01-12-2024 End: 02-11-2024 polyethylene glycol 3350 17526 mg powder for oral solution (6 sources) [...] 01-11-2024 Chronic Other aftercare (1 source) Other superintendent terminal (current) drug therapy; 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: [OTH HOUSING INSPECTORS CURRENT DRUG THERAPY] Onset: 11-19-2022 Episodic Other aftercare (1 source) exterminator helper (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) use of non-steroidal anti-inflammatories (NSAID); 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: [ASSISTED USE NSAID] Onset: 11-19-2022 Episodic Other aftercare (1 source) Long-term current use of anticoagulant; 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: [[facility] (current) use of anticoagulants] Onset: 07-28-2024 Episodic [...] Test Name Value Interpretation Reference Range Facility ALL CBC WITH AUTO DIFFon BASOPHILS ABSOLUTE AUTO 0 [facility] Basophils/100 WBC (Bld) 0.6 % 0.2 - 2.0 % [facility] Eosinophils/100 WBC (Bld) 0.8 % Low 0.9 - 7.0 % [facility] Erythrocyte distribution width (RBC) [Ratio] 14 % 11.0 - 15.0 % [facility] Hematocrit (Bld) [Volume fraction] 38.3 % 36.0 - 48.0 % [facility] Hemoglobin (Bld) [Mass/Vol] 12.1 g/dL 12.0 - 16.0 g/dL [facility] IMMATURE GRANULOCYTES ABS AUTO 0.02 [facility] Immature granulocytes/100 WBC (Bld) 0.3 % 0.0 - 0.5 % [facility] Interpretation and review of laboratory results Abnormal [facility] LYMPHOCYTES ABSOLUTE AUTO 1.5 [facility] Lymphocytes/100 WBC (Bld) 23 % 20.5 - 60.0 % [facility] MCH (RBC) [Entitic mass] 30.9 pg 26.7 - 34.0 pg [facility] MCHC (RBC) [Mass/Vol] 31.6 g/dL 29.9 - 35.2 g/dL [facility] MCV (RBC) [Entitic vol] 98 fL 81.0 - 99.0 fL [facility] MONOCYTES ABSOLUTE AUTO 0.6 [facility] Monocytes/100 WBC (Bld) 9.9 % 1.7 - 12.0 % [facility] NEUTROPHILS ABSOLUTE AUTO 4.2 [facility] Neutrophils/100 WBC (Bld) 65.4 % 43.0 - 75.0 % [facility] Platelet mean volume (Bld) [Entitic vol] 10 fL 9.5 - 13.5 fL [facility] EO # 0.1 [facility] PLT 226 [facility] RBC 3.91 Low [facility] WBC 6.4 [facility] Ambulatory Visit Summaryon 0 07-28-2024 Ambulatory Visit Summary Ambulatory Visit Summary CUATE GOODMAN :1940 Visit Date:07/28/2024 Ambulatory Visit Instructions Your Diagnosis Ureteral stone with hydronephrosis Urge incontinence Kidney stone Solitary kidney, acquired Anticoagulated Your Care Team Attending Physician - Greg AL, Cyn Chin Primary Care Physician - ERIK ADAME DO [...] Follow Up with Greg AL, Cyn Chin, STEFFI, URO When: Where: Medications What How Much When Instructions New mirabegron (mirabegron 50 mg oral tablet, extended release) 1 Tablets By Mouth Every day Duration: 30 Days Refills: 11 Pickup at [facility]/pharmacy #[id number] Unchanged acetaminophen-hydrocod one (acetaminophen-hydroco done 325 mg-5 [...] physician if questions or concerns Pharmacy Information [facility]/pharmacy #[id number]: [address], [place] [phone] What When Comments Stop Taking tolterodine (tolterodine [...] these instructions at home: Medicines ??? Take dodn-gop-btdhnll and prescription medicines only as told by [...] keep your pee pale yellow. ? Take fcyb-tml-wtdlyjl or prescription medicines. ? Eat foods that [...] kidney diseas (more content not included)... Normal [facility] Urology Office/Clinic Noteon 07-28-2024 Urology Office/Clinic Note Urology Office/Clinic Note Chief Complaint 1 WEEK F/U HPI Staff 83 year old female presents for week f/u for [facility] INPT s/p cytoscopy 07/18/24 and discuss stone [...] information and history for this patient from [facility]. I have reviewed and verified the staff [...] qd. SEs discussed. Generic requested. Sent to [facility]. Can add one anticholinergic if sxs not satisfactorily controlled by beta-3 alone. -PVR in future after stent out, consider botox 3. Kidney stone (N20.0: Calculus of kidney) CT AP wo con 07/18/24 [facility] - 5.9 mm stone L renal pelvis. -Will address at time of ureteral stone above Ordered: Urnls Dip Stick Auto w/o Microscopy POC 91986 4. 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 CT AP wo con 07/18/24 [facility] - Absence of R kidney. Moderate cortical scarring along contour of L kidney. No mass lesion. -Counseled on risk of renal failure with blockage of remaining kidney. Will treat kidney stones as they appear to prevent renal failure 5. 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 Normal [facility] Comment on above: Result Comment: Elec tronically Signed By: Cyn Garza MD\.br\Date and Time Signed: 07/28/24 10:51 EST\.br\Electronically Co-Signed By: Deisi Rowell\.br\Date and Time Co-Signed: 07/28/24 10:35 EST Urine Cultureon 07-18-2024 Bacteria identified Cx Nom (U) >100,000 colonies/ml mixed bacterial skin contaminants 2 Days PERFORMED BY: [address] [place] [place] [address] PATHOLOGIST HUMAN SERVICE WORKER MERLE TAO M.D. Normal [facility] Comment on above: Performed By: #### C UU #### [facility] [address] BMP FASTINGon 02-11-2024 Anion gap [Moles/Vol] 3 mmol/L Low 8-16 [facility] Calcium [Mass/Vol] 9.1 mg/dL Normal 8.4-10.2 [facility] Chloride [Moles/Vol] 104 mmol/L Normal 98-107 [facility] Comment on above: Result Comment: Shonda matthews note: Triglyceride levels of 600mg/dL or higher may positively bias chloride results by approximately 2.1 mmol CO2 [Moles/Vol] 28 mmol/L Normal 22-30 [facility] Creatinine [Mass/Vol] 0.80 mg/dL Normal 0.7-1.2 [facility] EST. GFR, 89 ml/min/1.73sq.m [facility] EST. GFR,Non 73 ml/min/1.73sq.m [facility] GFR Information Average GFR for 70+ years old = 75. Normal [facility] Comment on above: Result Comment: Director Of Agronomy aviva Kidney disease, GFR = <60. Kidney failure, GFR = <15. The GFR estimate is not adjusted for extreme body surface area or acute process, nor has it been validated for women or ethnic groups other than and . Glucose [Mass/Vol] 98 mg/dL Normal 70-100 [facility] Comment on above: Result Comment: NORMAL <100 mg/dL PREDIABETES 101-126 mg/dL DIABETES 126 mg/dL or higher Potassium [Moles/Vol] 4.5 mmol/L Normal 3.5-5.1 [facility] Sodium [Moles/Vol] 135 mmol/L Low 137-145 [facility] Urea nitrogen [Mass/Vol] 16 mg/dL Normal 7-20 [facility] C REACTIVE PROTEINon 024 CRP [Mass/Vol] 22.8 mg/L High 0-10 [facility] CBCon 02-11-2024 ABSOLUTE BAS 0.0 10*3/uL Normal 0.0-0.2 [facility] ABSOLUTE EOS 0.2 10*3/uL Normal 0.0-0.7 [facility] ABSOLUTE NEUTROPHIL COUNT 2.8 10*3/uL Normal 1.4-6.5 [facility] Basophils/100 WBC (Bld) 1.0 % Normal 0.0-2.0 [facility] DTYPE AUTO DIFF Normal [facility] Eosinophils/100 WBC (Bld) 4.1 % Normal 0.0-11.0 [facility] Lymphocytes (Bld) [#/Vol] 1.3 10*3/uL Normal 1.2-3.4 [facility] Lymphocytes/100 WBC (Bld) 25.8 % Normal 20.0-55.0 [facility] Monocytes (Bld) [#/Vol] 0.7 10*3/uL Normal 0.0-0.7 [facility] Monocytes/100 WBC (Bld) 13.4 % High 0.0-10.0 [facility] Neutrophils/100 WBC (Bld) 55.7 % Normal 37.0-75.0 [facility] Erythrocyte distribution width (RBC) [Ratio] 15.2 % High 11.5-14.5 [facility] Hematocrit (Bld) [Volume fraction] 31.9 % Low 36.0-48.0 [facility] Hemoglobin (Bld) [Mass/Vol] 10.7 g/dL Low 12.0-16.0 [facility] MCH (RBC) [Entitic mass] 32.2 pg Normal 26.0-35.0 [facility] MCHC (RBC) [Mass/Vol] 33.6 g/dL Normal 27.0-37.0 [facility] MCV (RBC) [Entitic vol] 96.1 fL Normal 80.0-100.0 [facility] Platelet mean volume (Bld) [Entitic vol] 7.2 fL Low 7.4-11.0 [facility] Platelets (Bld) [#/Vol] 368 10*3/uL Normal 130-400 [facility] RBC (Bld) [#/Vol] 3.32 10*6/uL Low 4.0-5.4 [facility] WBC (Bld) [#/Vol] 5.0 10*3/uL Normal 3.6-11.0 [facility] Laboratory - Chemistry and C hemistry - challengeon 02-11-2024 Anion gap [Moles/Vol] 3 mmol/L Low [facility] Calcium [Mass/Vol] 9.1 mg/dL [facility] Chloride [Moles/Vol] 104 mmol/L [facility] CO2 [Moles/Vol] 28 mmol/L [facility] Creatinine [Mass/Vol] 0.80 mg/dL [facility] CRP [Mass/Vol] 22.8 mg/L High 0 - 10 MG/L [facility] GFR/1.73 sq M.predicted among blacks MDRD (S/P/Bld) [Vol rate/Area] 89 mL/min/{1.73_m2} ml/min/1.73sq .m [facility] GFR/1.73 sq M.predicted among non-blacks MDRD (S/P/Bld) [Vol rate/Area] 73 mL/min/{1.73_m2} ml/min/1.73sq .m [facility] Glucose post fast [Mass/Vol] 98 mg/dL [facility] Potassium [Moles/Vol] 4.5 mmol/L [facility] Sodium [Moles/Vol] 135 mmol/L Low [facility] Urea nitrogen [Mass/Vol] 16 mg/dL [facility] Laboratory - Hematology and Cell countson 02-11-2024 Basophils/100 WBC (Bld) 1.0 % 0.0 - 2.0 % [facility] Differential cell count method Nom (Bld) AUTO DIFF % [facility] Eosinophils (Bld) [#/Vol] 0.2 10*3/uL 0.0 - 0.7 10*3/uL [facility] Eosinophils/100 WBC (Bld) 4.1 % 0.0 - 11.0 % [facility] Erythrocyte distribution width (RBC) [Ratio] 15.2 % High 11.5 - 14.5 % [facility] Hematocrit (Bld) [Volume fraction] 31.9 % Low 36.0 - 48.0 % [facility] Hemoglobin (Bld) [Mass/Vol] 10.7 g/dL Low [facility] Lymphocytes (Bld) [#/Vol] 1.3 10*3/uL 1.2 - 3.4 10*3/uL [facility] Lymphocytes/100 WBC (Bld) 25.8 % 20.0 - 55.0 % [facility] MCH (RBC) [Entitic mass] 32.2 pg 26.0 - 35.0 PG [facility] MCHC (RBC) [Mass/Vol] 33.6 g/dL [facility] MCV (RBC) [Entitic vol] 96.1 fL [facility] Monocytes (Bld) [#/Vol] 0.7 10*3/uL 0.0 - 0.7 10*3/uL [facility] Monocytes/100 WBC (Bld) 13.4 % High 0.0 - 10.0 % [facility] Neutrophils (Bld) [#/Vol] 2.8 10*3/uL 1.4 - 6.5 10*3/uL [facility] Neutrophils/100 WBC (Bld) 55.7 % 37.0 - 75.0 % [facility] Platelet mean volume (Bld) [Entitic vol] 7.2 fL Low [facility] Platelets (Bld) [#/Vol] 368 10*3/uL 130 - 400 10*3/uL [facility] RBC (Bld) [#/Vol] 3.32 10*6/uL Low 4.0 - 5.4 10*6/uL [facility] WBC (Bld) [#/Vol] 5.0 10*3/uL 3.6 - 11.0 10*3/uL [facility] No Panel Informationon 02-10 GFR COMMENT Average GFR for 70+ years old = 75. [facility] Interpretation and review of laboratory results Abnormal [facility] ABSOLUTE BASOPHIL COUNT 0.0 10*3/uL 0.0 - 0.2 10*3/uL [facility] Interpretation and review of laboratory results Abnormal [facility] BMP FASTINGon 02-10-2024 Anion gap [Moles/Vol] 1 mmol/L Low 8-16 [facility] Calcium [Mass/Vol] 8.8 mg/dL Normal 8.4-10.2 [facility] Chloride [Moles/Vol] 105 mmol/L Normal 98-107 [facility] Comment on above: Result Comment: Shonda matthews note: Triglyceride levels of 600mg/dL or higher may positively bias chloride results by approximately 2.1 mmol CO2 [Moles/Vol] 29 mmol/L Normal 22-30 [facility] Creatinine [Mass/Vol] 0.80 mg/dL Normal 0.7-1.2 [facility] EST. GFR, 89 ml/min/1.73sq.m Normal [facility] EST. GFR,Non 73 ml/min/1.73sq.m Normal [facility] GFR Information Average GFR for 70+ years old = 75. Normal [facility] Comment on above: Result Comment: Director Of Agronomy aviva Kidney disease, GFR = <60. Kidney failure, GFR = <15. The GFR estimate is not adjusted for extreme body surface area or acute process, nor has it been validated for women or ethnic groups other than and . Glucose [Mass/Vol] 97 mg/dL Normal 70-100 [facility] Comment on above: Result Comment: NORMAL <100 mg/dL PREDIABETES 101-126 mg/dL DIABETES 126 mg/dL or higher Potassium [Moles/Vol] 4.3 mmol/L Normal 3.5-5.1 [facility] Sodium [Moles/Vol] 135 mmol/L Low 137-145 [facility] Urea nitrogen [Mass/Vol] 19 mg/dL Normal 7-20 [facility] C REACTIVE PROTEINon 024 CRP [Mass/Vol] 18.6 mg/L High 0-10 [facility] CBCon 02-10-2024 ABSOLUTE BAS 0.0 10*3/uL Normal 0.0-0.2 [facility] ABSOLUTE EOS 0.2 10*3/uL Normal 0.0-0.7 [facility] ABSOLUTE NEUTROPHIL COUNT 3.8 10*3/uL Normal 1.4-6.5 [facility] Basophils/100 WBC (Bld) 0.6 % Normal 0.0-2.0 [facility] DTYPE AUTO DIFF Normal [facility] Eosinophils/100 WBC (Bld) 3.1 % Normal 0.0-11.0 [facility] Lymphocytes (Bld) [#/Vol] 1.6 10*3/uL Normal 1.2-3.4 [facility] Lymphocytes/100 WBC (Bld) 24.9 % Normal 20.0-55.0 [facility] Monocytes (Bld) [#/Vol] 0.7 10*3/uL Normal 0.0-0.7 [facility] Monocytes/100 WBC (Bld) 11.0 % High 0.0-10.0 [facility] Neutrophils/100 WBC (Bld) 60.4 % Normal 37.0-75.0 [facility] Erythrocyte distribution width (RBC) [Ratio] 15.2 % High 11.5-14.5 [facility] Hematocrit (Bld) [Volume fraction] 31.7 % Low 36.0-48.0 [facility] Hemoglobin (Bld) [Mass/Vol] 10.7 g/dL Low 12.0-16.0 [facility] MCH (RBC) [Entitic mass] 32.1 pg Normal 26.0-35.0 [facility] MCHC (RBC) [Mass/Vol] 33.6 g/dL Normal 27.0-37.0 [facility] MCV (RBC) [Entitic vol] 95.6 fL Normal 80.0-100.0 [facility] Platelet mean volume (Bld) [Entitic vol] 7.2 fL Low 7.4-11.0 [facility] Platelets (Bld) [#/Vol] 369 10*3/uL Normal 130-400 [facility] RBC (Bld) [#/Vol] 3.32 10*6/uL Low 4.0-5.4 [facility] WBC (Bld) [#/Vol] 6.3 10*3/uL Normal 3.6-11.0 [facility] Laboratory - Chemistry and C hemistry - challengeon 07-25-2024 Anion gap [Moles/Vol] 1 mmol/L Low [facility] Calcium [Mass/Vol] 8.8 mg/dL [facility] Chloride [Moles/Vol] 105 mmol/L [facility] CO2 [Moles/Vol] 29 mmol/L [facility] Creatinine [Mass/Vol] 0.80 mg/dL [facility] CRP [Mass/Vol] 18.6 mg/L High 0 - 10 MG/L [facility] GFR/1.73 sq M.predicted among blacks MDRD (S/P/Bld) [Vol rate/Area] 89 mL/min/{1.73_m2} ml/min/1.73sq .m [facility] GFR/1.73 sq M.predicted among non-blacks MDRD (S/P/Bld) [Vol rate/Area] 73 mL/min/{1.73_m2} ml/min/1.73sq .m [facility] Glucose post fast [Mass/Vol] 97 mg/dL [facility] Potassium [Moles/Vol] 4.3 mmol/L [facility] Sodium [Moles/Vol] 135 mmol/L Low [facility] Urea nitrogen [Mass/Vol] 19 mg/dL [facility] Laboratory - Hematology and Cell countson 02-10-2024 Basophils/100 WBC (Bld) 0.6 % 0.0 - 2.0 % [facility] Differential cell count method Nom (Bld) AUTO DIFF % [facility] Eosinophils (Bld) [#/Vol] 0.2 10*3/uL 0.0 - 0.7 10*3/uL [facility] Eosinophils/100 WBC (Bld) 3.1 % 0.0 - 11.0 % [facility] Erythrocyte distribution width (RBC) [Ratio] 15.2 % High 11.5 - 14.5 % [facility] Hematocrit (Bld) [Volume fraction] 31.7 % Low 36.0 - 48.0 % [facility] Hemoglobin (Bld) [Mass/Vol] 10.7 g/dL Low [facility] Lymphocytes (Bld) [#/Vol] 1.6 10*3/uL 1.2 - 3.4 10*3/uL [facility] Lymphocytes/100 WBC (Bld) 24.9 % 20.0 - 55.0 % [facility] MCH (RBC) [Entitic mass] 32.1 pg 26.0 - 35.0 PG [facility] MCHC (RBC) [Mass/Vol] 33.6 g/dL [facility] MCV (RBC) [Entitic vol] 95.6 fL [facility] Monocytes (Bld) [#/Vol] 0.7 10*3/uL 0.0 - 0.7 10*3/uL [facility] Monocytes/100 WBC (Bld) 11.0 % High 0.0 - 10.0 % [facility] Neutrophils (Bld) [#/Vol] 3.8 10*3/uL 1.4 - 6.5 10*3/uL [facility] Neutrophils/100 WBC (Bld) 60.4 % 37.0 - 75.0 % [facility] Platelet mean volume (Bld) [Entitic vol] 7.2 fL Low [facility] Platelets (Bld) [#/Vol] 369 10*3/uL 130 - 400 10*3/uL [facility] RBC (Bld) [#/Vol] 3.32 10*6/uL Low 4.0 - 5.4 10*6/uL [facility] WBC (Bld) [#/Vol] 6.3 10*3/uL 3.6 - 11.0 10*3/uL [facility] No Panel Informationon 02-09 GFR COMMENT Average GFR for 70+ years old = 75. [facility] Interpretation and review of laboratory results Abnormal [facility] ABSOLUTE BASOPHIL COUNT 0.0 10*3/uL 0.0 - 0.2 10*3/uL [facility] Interpretation and review of laboratory results Abnormal [facility] BMP FASTINGon 02-09-2024 Anion gap [Moles/Vol] 3 mmol/L Low 8-16 [facility] Calcium [Mass/Vol] 9.1 mg/dL Normal 8.4-10.2 [facility] Chloride [Moles/Vol] 104 mmol/L Normal 98-107 [facility] Comment on above: Result Comment: Shonda matthews note: Triglyceride levels of 600mg/dL or higher may positively bias chloride results by approximately 2.1 mmol CO2 [Moles/Vol] 28 mmol/L Normal 22-30 [facility] Creatinine [Mass/Vol] 0.90 mg/dL Normal 0.7-1.2 [facility] EST. GFR, 77 ml/min/1.73sq.m Normal [facility] EST. GFR,Non 64 ml/min/1.73sq.m Normal [facility] GFR Information Average GFR for 70+ years old = 75. Normal [facility] Comment on above: Result Comment: Director Of Agronomy aviva Kidney disease, GFR = <60. Kidney failure, GFR = <15. The GFR estimate is not adjusted for extreme body surface area or acute process, nor has it been validated for women or ethnic groups other than and . Glucose [Mass/Vol] 103 mg/dL High 70-100 [facility] Comment on above: Result Comment: NORMAL <100 mg/dL PREDIABETES 101-126 mg/dL DIABETES 126 mg/dL or higher Potassium [Moles/Vol] 4.5 mmol/L Normal 3.5-5.1 [facility] Sodium [Moles/Vol] 135 mmol/L Low 137-145 [facility] Urea nitrogen [Mass/Vol] 20 mg/dL Normal 7-20 [facility] C REACTIVE PROTEINon 024 CRP [Mass/Vol] 21.2 mg/L High 0-10 [facility] CBCon 02-09-2024 ABSOLUTE BAS 0.1 10*3/uL Normal 0.0-0.2 [facility] ABSOLUTE EOS 0.2 10*3/uL Normal 0.0-0.7 [facility] ABSOLUTE NEUTROPHIL COUNT 3.7 10*3/uL Normal 1.4-6.5 [facility] Basophils/100 WBC (Bld) 0.9 % Normal 0.0-2.0 [facility] DTYPE AUTO DIFF Normal [facility] Eosinophils/100 WBC (Bld) 2.9 % Normal 0.0-11.0 [facility] Lymphocytes (Bld) [#/Vol] 1.8 10*3/uL Normal 1.2-3.4 [facility] Lymphocytes/100 WBC (Bld) 27.8 % Normal 20.0-55.0 [facility] Monocytes (Bld) [#/Vol] 0.7 10*3/uL Normal 0.0-0.7 [facility] Monocytes/100 WBC (Bld) 10.8 % High 0.0-10.0 [facility] Neutrophils/100 WBC (Bld) 57.6 % Normal 37.0-75.0 [facility] Erythrocyte distribution width (RBC) [Ratio] 15.1 % High 11.5-14.5 [facility] Hematocrit (Bld) [Volume fraction] 34.2 % Low 36.0-48.0 [facility] Hemoglobin (Bld) [Mass/Vol] 11.4 g/dL Low 12.0-16.0 [facility] MCH (RBC) [Entitic mass] 32.0 pg Normal 26.0-35.0 [facility] MCHC (RBC) [Mass/Vol] 33.4 g/dL Normal 27.0-37.0 [facility] MCV (RBC) [Entitic vol] 96.0 fL Normal 80.0-100.0 [facility] Platelet mean volume (Bld) [Entitic vol] 7.4 fL Normal 7.4-11.0 [facility] Platelets (Bld) [#/Vol] 401 10*3/uL High 130-400 [facility] RBC (Bld) [#/Vol] 3.56 10*6/uL Low 4.0-5.4 [facility] WBC (Bld) [#/Vol] 6.4 10*3/uL Normal 3.6-11.0 [facility] Laboratory - Chemistry and C hemistry - challengeon 02-09-2024 Anion gap [Moles/Vol] 3 mmol/L Low [facility] Calcium [Mass/Vol] 9.1 mg/dL [facility] Chloride [Moles/Vol] 104 mmol/L [facility] CO2 [Moles/Vol] 28 mmol/L [facility] Creatinine [Mass/Vol] 0.90 mg/dL [facility] CRP [Mass/Vol] 21.2 mg/L High 0 - 10 MG/L [facility] GFR/1.73 sq M.predicted among blacks MDRD (S/P/Bld) [Vol rate/Area] 77 mL/min/{1.73_m2} ml/min/1.73sq .m [facility] GFR/1.73 sq M.predicted among non-blacks MDRD (S/P/Bld) [Vol rate/Area] 64 mL/min/{1.73_m2} ml/min/1.73sq .m [facility] Glucose post fast [Mass/Vol] 103 mg/dL High [facility] Potassium [Moles/Vol] 4.5 mmol/L [facility] Sodium [Moles/Vol] 135 mmol/L Low [facility] Urea nitrogen [Mass/Vol] 20 mg/dL [facility] Laboratory - Hematology and Cell countson 02-09-2024 Basophils/100 WBC (Bld) 0.9 % 0.0 - 2.0 % [facility] Differential cell count method Nom (Bld) AUTO DIFF % [facility] Eosinophils (Bld) [#/Vol] 0.2 10*3/uL 0.0 - 0.7 10*3/uL [facility] Eosinophils/100 WBC (Bld) 2.9 % 0.0 - 11.0 % [facility] Erythrocyte distribution width (RBC) [Ratio] 15.1 % High 11.5 - 14.5 % [facility] Hematocrit (Bld) [Volume fraction] 34.2 % Low 36.0 - 48.0 % [facility] Hemoglobin (Bld) [Mass/Vol] 11.4 g/dL Low [facility] Lymphocytes (Bld) [#/Vol] 1.8 10*3/uL 1.2 - 3.4 10*3/uL [facility] Lymphocytes/100 WBC (Bld) 27.8 % 20.0 - 55.0 % [facility] MCH (RBC) [Entitic mass] 32.0 pg 26.0 - 35.0 PG [facility] MCHC (RBC) [Mass/Vol] 33.4 g/dL [facility] MCV (RBC) [Entitic vol] 96.0 fL [facility] Monocytes (Bld) [#/Vol] 0.7 10*3/uL 0.0 - 0.7 10*3/uL [facility] Monocytes/100 WBC (Bld) 10.8 % High 0.0 - 10.0 % [facility] Neutrophils (Bld) [#/Vol] 3.7 10*3/uL 1.4 - 6.5 10*3/uL [facility] Neutrophils/100 WBC (Bld) 57.6 % 37.0 - 75.0 % [facility] Platelet mean volume (Bld) [Entitic vol] 7.4 fL [facility] Platelets (Bld) [#/Vol] 401 10*3/uL High 130 - 400 10*3/uL [facility] RBC (Bld) [#/Vol] 3.56 10*6/uL Low 4.0 - 5.4 10*6/uL [facility] WBC (Bld) [#/Vol] 6.4 10*3/uL 3.6 - 11.0 10*3/uL [facility] No Panel Informationon 02-08 GFR COMMENT Average GFR for 70+ years old = 75. [facility] Interpretation and review of laboratory results Abnormal [facility] ABSOLUTE BASOPHIL COUNT 0.1 10*3/uL 0.0 - 0.2 10*3/uL [facility] Interpretation and review of laboratory results Abnormal [facility] BMP FASTINGon 02-08-2024 Anion gap [Moles/Vol] Negative Normal 8-16 [facility] Calcium [Mass/Vol] 8.9 mg/dL Normal 8.4-10.2 [facility] Chloride [Moles/Vol] 104 mmol/L Normal 98-107 [facility] Comment on above: Result Comment: Shonda matthews note: Triglyceride levels of 600mg/dL or higher may positively bias chloride results by approximately 2.1 mmol CO2 [Moles/Vol] 30 mmol/L Normal 22-30 [facility] Creatinine [Mass/Vol] 0.80 mg/dL Normal 0.7-1.2 [facility] EST. GFR, 89 ml/min/1.73sq.m Normal [facility] EST. GFR,Non 73 ml/min/1.73sq.m Normal [facility] GFR Information Average GFR for 70+ years old = 75. Normal [facility] Comment on above: Result Comment: Director Of [employer]gr[employer] aviva Kidney disease, GFR = <60. Kidney failure, GFR = <15. The GFR estimate is not adjusted for extreme body surface area or acute process, nor has it been validated for women or ethnic groups other than and . Glucose [Mass/Vol] 96 mg/dL Normal 70-100 [facility] Comment on above: Result Comment: NORMAL <100 mg/dL PREDIABETES 101-126 mg/dL DIABETES 126 mg/dL or higher Potassium [Moles/Vol] 4.3 mmol/L Normal 3.5-5.1 [facility] Sodium [Moles/Vol] 133 mmol/L Low 137-145 [facility] Urea nitrogen [Mass/Vol] 14 mg/dL Normal 7-20 [facility] C REACTIVE PROTEINon 024 CRP [Mass/Vol] 22.2 mg/L High 0-10 [facility] CBCon 02-08-2024 ABSOLUTE BAS 0.1 10*3/uL Normal 0.0-0.2 [facility] ABSOLUTE EOS 0.2 10*3/uL Normal 0.0-0.7 [facility] ABSOLUTE NEUTROPHIL COUNT 3.2 10*3/uL Normal 1.4-6.5 [facility] Basophils/100 WBC (Bld) 1.0 % Normal 0.0-2.0 [facility] DTYPE AUTO DIFF Normal [facility] Eosinophils/100 WBC (Bld) 3.5 % Normal 0.0-11.0 [facility] Lymphocytes (Bld) [#/Vol] 1.5 10*3/uL Normal 1.2-3.4 [facility] Lymphocytes/100 WBC (Bld) 26.3 % Normal 20.0-55.0 [facility] Monocytes (Bld) [#/Vol] 0.6 10*3/uL Normal 0.0-0.7 [facility] Monocytes/100 WBC (Bld) 11.2 % High 0.0-10.0 [facility] Neutrophils/100 WBC (Bld) 58.0 % Normal 37.0-75.0 [facility] Erythrocyte distribution width (RBC) [Ratio] 15.3 % High 11.5-14.5 [facility] Hematocrit (Bld) [Volume fraction] 30.8 % Low 36.0-48.0 [facility] Hemoglobin (Bld) [Mass/Vol] 10.4 g/dL Low 12.0-16.0 [facility] MCH (RBC) [Entitic mass] 32.1 pg Normal 26.0-35.0 [facility] MCHC (RBC) [Mass/Vol] 33.7 g/dL Normal 27.0-37.0 [facility] MCV (RBC) [Entitic vol] 95.1 fL Normal 80.0-100.0 [facility] Platelet mean volume (Bld) [Entitic vol] 7.4 fL Normal 7.4-11.0 [facility] Platelets (Bld) [#/Vol] 368 10*3/uL Normal 130-400 [facility] RBC (Bld) [#/Vol] 3.24 10*6/uL Low 4.0-5.4 [facility] WBC (Bld) [#/Vol] 5.5 10*3/uL Normal 3.6-11.0 [facility] ESRon 02-08-2024 ESR (Bld) [Velocity] 75 mm/h High 0-30 [facility] Laboratory - Chemistry and C hemistry - challengeon 02-08-2024 Anion gap [Moles/Vol] Negative [facility] Calcium [Mass/Vol] 8.9 mg/dL [facility] Chloride [Moles/Vol] 104 mmol/L [facility] CO2 [Moles/Vol] 30 mmol/L [facility] Creatinine [Mass/Vol] 0.80 mg/dL [facility] CRP [Mass/Vol] 22.2 mg/L High 0 - 10 MG/L [facility] GFR/1.73 sq M.predicted among blacks MDRD (S/P/Bld) [Vol rate/Area] 89 mL/min/{1.73_m2} ml/min/1.73sq .m [facility] GFR/1.73 sq M.predicted among non-blacks MDRD (S/P/Bld) [Vol rate/Area] 73 mL/min/{1.73_m2} ml/min/1.73sq .m [facility] Glucose post fast [Mass/Vol] 96 mg/dL [facility] Potassium [Moles/Vol] 4.3 mmol/L [facility] Sodium [Moles/Vol] 133 mmol/L Low [facility] Urea nitrogen [Mass/Vol] 14 mg/dL [facility] Laboratory - Hematology and Cell countson 02-08-2024 ESR (Bld) [Velocity] 75 mm/h High [facility] Basophils/100 WBC (Bld) 1.0 % 0.0 - 2.0 % [facility] Differential cell count method Nom (Bld) AUTO DIFF % [facility] Eosinophils (Bld) [#/Vol] 0.2 10*3/uL 0.0 - 0.7 10*3/uL [facility] Eosinophils/100 WBC (Bld) 3.5 % 0.0 - 11.0 % [facility] Erythrocyte distribution width (RBC) [Ratio] 15.3 % High 11.5 - 14.5 % [facility] Hematocrit (Bld) [Volume fraction] 30.8 % Low 36.0 - 48.0 % [facility] Hemoglobin (Bld) [Mass/Vol] 10.4 g/dL Low [facility] Lymphocytes (Bld) [#/Vol] 1.5 10*3/uL 1.2 - 3.4 10*3/uL [facility] Lymphocytes/100 WBC (Bld) 26.3 % 20.0 - 55.0 % [facility] MCH (RBC) [Entitic mass] 32.1 pg 26.0 - 35.0 PG [facility] MCHC (RBC) [Mass/Vol] 33.7 g/dL [facility] MCV (RBC) [Entitic vol] 95.1 fL [facility] Monocytes (Bld) [#/Vol] 0.6 10*3/uL 0.0 - 0.7 10*3/uL [facility] Monocytes/100 WBC (Bld) 11.2 % High 0.0 - 10.0 % [facility] Neutrophils (Bld) [#/Vol] 3.2 10*3/uL 1.4 - 6.5 10*3/uL [facility] Neutrophils/100 WBC (Bld) 58.0 % 37.0 - 75.0 % [facility] Platelet mean volume (Bld) [Entitic vol] 7.4 fL [facility] Platelets (Bld) [#/Vol] 368 10*3/uL 130 - 400 10*3/uL [facility] RBC (Bld) [#/Vol] 3.24 10*6/uL Low 4.0 - 5.4 10*6/uL [facility] WBC (Bld) [#/Vol] 5.5 10*3/uL 3.6 - 11.0 10*3/uL [facility] No Panel Informationon 02-07 Interpretation and review of laboratory results Abnormal [facility] GFR COMMENT Average GFR for 70+ years old = 75. [facility] Interpretation and review of laboratory results Abnormal [facility] ABSOLUTE BASOPHIL COUNT 0.1 10*3/uL 0.0 - 0.2 10*3/uL [facility] Interpretation and review of laboratory results Abnormal [facility] BMP FASTINGon 02-07-2024 Anion gap [Moles/Vol] 1 mmol/L Low 8-16 [facility] Comment on above: Performed By: #### A CBC #### Testing performed at [place] [place] [address] Calcium [Mass/Vol] 8.8 mg/dL Normal 8.4-10.2 [facility] Comment on above: Performed By: #### A CBC #### Testing performed at [place] [place] [address] Chloride [Moles/Vol] 105 mmol/L Normal 98-107 [facility] Comment on above: Result Comment: Shonda matthews note: Triglyceride levels of 600mg/dL or higher may positively bias chloride results by approximately 2.1 mmol Performed By: #### A CBC #### Testing performed at [address] [address] CO2 [Moles/Vol] 27 mmol/L Normal 22-30 [facility] Comment on above: Performed By: #### A CBC #### Testing performed at [address] [address] Creatinine [Mass/Vol] 0.70 mg/dL Normal 0.7-1.2 [facility] Comment on above: Performed By: #### A CBC #### Testing performed at [address] [address] EST. GFR, 103 ml/min/1.73sq.m [facility] Comment on above: Performed By: #### A CBC #### Testing performed at [address] [address] EST. GFR,Non 85 ml/min/1.73sq.m [facility] Comment on above: Performed By: #### A CBC #### Testing performed at [address] [address] GFR Information Average GFR for 70+ years old = 75. Normal [facility] Comment on above: Result Comment: Director Of [employer]gr[employer] aviva Kidney disease, GFR = <60. Kidney failure, GFR = <15. The GFR estimate is not adjusted for extreme body surface area or acute process, nor has it been validated for women or ethnic groups other than and . Performed By: #### A CBC #### Testing performed at [address] [address] Glucose [Mass/Vol] 95 mg/dL Normal 70-100 [facility] Comment on above: Result Comment: NORMAL <100 mg/dL PREDIABETES 101-126 mg/dL DIABETES 126 mg/dL or higher Performed By: #### A CBC #### Testing performed at [address] [place] [address] Potassium [Moles/Vol] 4.3 mmol/L Normal 3.5-5.1 [facility] Comment on above: Performed By: #### A CBC #### Testing performed at [address] [address] Sodium [Moles/Vol] 133 mmol/L Low 137-145 [facility] Comment on above: Performed By: #### A CBC #### Testing performed at [address] [address] Urea nitrogen [Mass/Vol] 11 mg/dL Normal 7-20 [facility] Comment on above: Performed By: #### A CBC #### Testing performed at [address] [address] C REACTIVE PROTEINon 024 CRP [Mass/Vol] 19.6 mg/L High 0-10 [facility] Comment on above: Performed By: #### A CBC #### Testing performed at [address] [address] CBCon 02-07-2024 ABSOLUTE BAS 0.0 10*3/uL Normal 0.0-0.2 [facility] Comment on above: Performed By: #### A CBC #### Testing performed at [address] [address] ABSOLUTE EOS 0.2 10*3/uL Normal 0.0-0.7 [facility] Comment on above: Performed By: #### A CBC #### Testing performed at [address] [address] ABSOLUTE NEUTROPHIL COUNT 2.8 10*3/uL Normal 1.4-6.5 [facility] Comment on above: Performed By: #### A CBC #### Testing performed at [address] [address] Basophils/100 WBC (Bld) 0.9 % Normal 0.0-2.0 [facility] Comment on above: Performed By: #### A CBC #### Testing performed at [address] [address] DTYPE AUTO DIFF Normal [facility] Comment on above: Performed By: #### A CBC #### Testing performed at [address] [address] Eosinophils/100 WBC (Bld) 3.8 % Normal 0.0-11.0 [facility] Comment on above: Performed By: #### A CBC #### Testing performed at [address] [address] Lymphocytes (Bld) [#/Vol] 1.4 10*3/uL Normal 1.2-3.4 [facility] Comment on above: Performed By: #### A CBC #### Testing performed at [address] [address] Lymphocytes/100 WBC (Bld) 28.3 % Normal 20.0-55.0 [facility] Comment on above: Performed By: #### A CBC #### Testing performed at [address] [address] Monocytes (Bld) [#/Vol] 0.6 10*3/uL Normal 0.0-0.7 [facility] Comment on above: Performed By: #### A CBC #### Testing performed at [address] [address] Monocytes/100 WBC (Bld) 12.4 % High 0.0-10.0 [facility] Comment on above: Performed By: #### A CBC #### Testing performed at [address] [address] Neutrophils/100 WBC (Bld) 54.6 % Normal 37.0-75.0 [facility] Comment on above: Performed By: #### A CBC #### Testing performed at [address] [address] Erythrocyte distribution width (RBC) [Ratio] 16.0 % High 11.5-14.5 [facility] Comment on above: Performed By: #### A CBC #### Testing performed at [address] [address] Hematocrit (Bld) [Volume fraction] 31.7 % Low 36.0-48.0 [facility] Comment on above: Performed By: #### A CBC #### Testing performed at [address] [address] Hemoglobin (Bld) [Mass/Vol] 10.5 g/dL Low 12.0-16.0 [facility] Comment on above: Performed By: #### A CBC #### Testing performed at [address] [address] MCH (RBC) [Entitic mass] 32.5 pg Normal 26.0-35.0 [facility] Comment on above: Performed By: #### A CBC #### Testing performed at [address] [address] MCHC (RBC) [Mass/Vol] 33.1 g/dL Normal 27.0-37.0 [facility] Comment on above: Performed By: #### A CBC #### Testing performed at [address] [address] MCV (RBC) [Entitic vol] 98.4 fL Normal 80.0-100.0 [facility] Comment on above: Performed By: #### A CBC #### Testing performed at [address] [address] Platelet mean volume (Bld) [Entitic vol] 7.2 fL Low 7.4-11.0 [facility] Comment on above: Performed By: #### A CBC #### Testing performed at [address] [address] Platelets (Bld) [#/Vol] 366 10*3/uL Normal 130-400 [facility] Comment on above: Performed By: #### A CBC #### Testing performed at [address] [address] RBC (Bld) [#/Vol] 3.23 10*6/uL Low 4.0-5.4 [facility] Comment on above: Performed By: #### A CBC #### Testing performed at [place] [address] [id number] WBC (Bld) [#/Vol] 5.1 10*3/uL Normal 3.6-11.0 [facility] Comment on above: Performed By: #### A CBC #### [place] [address] Laboratory - Chemistry and C hemistry - challengeon 02-07-2024 Anion gap [Moles/Vol] 1 mmol/L Low [facility] Calcium [Mass/Vol] 8.8 mg/dL [facility] Chloride [Moles/Vol] 105 mmol/L [facility] CO2 [Moles/Vol] 27 mmol/L [facility] Creatinine [Mass/Vol] 0.70 mg/dL [facility] CRP [Mass/Vol] 19.6 mg/L High 0 - 10 MG/L [facility] GFR/1.73 sq M.predicted among blacks MDRD (S/P/Bld) [Vol rate/Area] 103 mL/min/{1.73_m2} ml/min/1.73sq .m [facility] GFR/1.73 sq M.predicted among non-blacks MDRD (S/P/Bld) [Vol rate/Area] 85 mL/min/{1.73_m2} ml/min/1.73sq .m [facility] Glucose post fast [Mass/Vol] 95 mg/dL [facility] Potassium [Moles/Vol] 4.3 mmol/L [facility] Sodium [Moles/Vol] 133 mmol/L Low [facility] Urea nitrogen [Mass/Vol] 11 mg/dL [facility] - Hematology and Cell countson 02-07-2024 Basophils/100 WBC (Bld) 0.9 % 0.0 - 2.0 % [facility] Differential cell count method Nom (Bld) AUTO DIFF % [facility] Eosinophils (Bld) [#/Vol] 0.2 10*3/uL 0.0 - 0.7 10*3/uL [facility] Eosinophils/100 WBC (Bld) 3.8 % 0.0 - 11.0 % [facility] Erythrocyte distribution width (RBC) [Ratio] 16.0 % High 11.5 - 14.5 % [facility] Hematocrit (Bld) [Volume fraction] 31.7 % Low 36.0 - 48.0 % [facility] Hemoglobin (Bld) [Mass/Vol] 10.5 g/dL Low [facility] Lymphocytes (Bld) [#/Vol] 1.4 10*3/uL 1.2 - 3.4 10*3/uL [facility] Lymphocytes/100 WBC (Bld) 28.3 % 20.0 - 55.0 % [facility] MCH (RBC) [Entitic mass] 32.5 pg 26.0 - 35.0 PG [facility] MCHC (RBC) [Mass/Vol] 33.1 g/dL [facility] MCV (RBC) [Entitic vol] 98.4 fL [facility] Monocytes (Bld) [#/Vol] 0.6 10*3/uL 0.0 - 0.7 10*3/uL [facility] Monocytes/100 WBC (Bld) 12.4 % High 0.0 - 10.0 % [facility] Neutrophils (Bld) [#/Vol] 2.8 10*3/uL 1.4 - 6.5 10*3/uL [facility] Neutrophils/100 WBC (Bld) 54.6 % 37.0 - 75.0 % [facility] Platelet mean volume (Bld) [Entitic vol] 7.2 fL Low [facility] Platelets (Bld) [#/Vol] 366 10*3/uL 130 - 400 10*3/uL [facility] RBC (Bld) [#/Vol] 3.23 10*6/uL Low 4.0 - 5.4 10*6/uL [facility] WBC (Bld) [#/Vol] 5.1 10*3/uL 3.6 - 11.0 10*3/uL [facility] No Panel Informationon 02-06 ABSOLUTE BASOPHIL COUNT 0.0 10*3/uL 0.0 - 0.2 10*3/uL [facility] Interpretation and review of laboratory results Abnormal [facility] GFR COMMENT Average GFR for 70+ years old = 75. [facility] Interpretation and review of laboratory results Abnormal [facility] BMP FASTINGon 02-06-2024 Anion gap [Moles/Vol] 2 mmol/L Low 8-16 [facility] Calcium [Mass/Vol] 8.6 mg/dL Normal 8.4-10.2 [facility] Chloride [Moles/Vol] 104 mmol/L Normal 98-107 [facility] Comment on above: Result Comment: Shonda matthews note: Triglyceride levels of 600mg/dL or higher may positively bias chloride results by approximately 2.1 mmol CO2 [Moles/Vol] 29 mmol/L Normal 22-30 [facility] Creatinine [Mass/Vol] 0.80 mg/dL Normal 0.7-1.2 [facility] EST. GFR, 89 ml/min/1.73sq.m Normal [facility] EST. GFR,Non 73 ml/min/1.73sq.m Normal [facility] GFR Information Average GFR for 70+ years old = 75. Normal [facility] Comment on above: Result Comment: Director Of [employer]gr[employer] aviva Kidney disease, GFR = <60. Kidney failure, GFR = <15. The GFR estimate is not adjusted for extreme body surface area or acute process, nor has it been validated for women or ethnic groups other than and . Glucose [Mass/Vol] 100 mg/dL Normal 70-100 [facility] Comment on above: Result Comment: NORMAL <100 mg/dL PREDIABETES 101-126 mg/dL DIABETES 126 mg/dL or higher Potassium [Moles/Vol] 4.4 mmol/L Normal 3.5-5.1 [facility] Sodium [Moles/Vol] 135 mmol/L Low 137-145 [facility] Urea nitrogen [Mass/Vol] 17 mg/dL Normal 7-20 [facility] C REACTIVE PROTEINon 024 CRP [Mass/Vol] 22.7 mg/L High 0-10 [facility] CBCon 02-06-2024 ABSOLUTE BAS 0.0 10*3/uL Normal 0.0-0.2 [facility] ABSOLUTE EOS 0.2 10*3/uL Normal 0.0-0.7 [facility] ABSOLUTE NEUTROPHIL COUNT 3.4 10*3/uL Normal 1.4-6.5 [facility] Basophils/100 WBC (Bld) 0.8 % Normal 0.0-2.0 [facility] DTYPE AUTO DIFF Normal [facility] Eosinophils/100 WBC (Bld) 2.8 % Normal 0.0-11.0 [facility] Lymphocytes (Bld) [#/Vol] 1.5 10*3/uL Normal 1.2-3.4 [facility] Lymphocytes/100 WBC (Bld) 25.0 % Normal 20.0-55.0 [facility] Monocytes (Bld) [#/Vol] 0.8 10*3/uL High 0.0-0.7 [facility] Monocytes/100 WBC (Bld) 12.9 % High 0.0-10.0 [facility] Neutrophils/100 WBC (Bld) 58.5 % Normal 37.0-75.0 [facility] Erythrocyte distribution width (RBC) [Ratio] 15.2 % High 11.5-14.5 [facility] Hematocrit (Bld) [Volume fraction] 29.6 % Low 36.0-48.0 [facility] Hemoglobin (Bld) [Mass/Vol] 10.1 g/dL Low 12.0-16.0 [facility] MCH (RBC) [Entitic mass] 32.5 pg Normal 26.0-35.0 [facility] MCHC (RBC) [Mass/Vol] 34.0 g/dL Normal 27.0-37.0 [facility] MCV (RBC) [Entitic vol] 95.7 fL Normal 80.0-100.0 [facility] Platelet mean volume (Bld) [Entitic vol] 6.7 fL Low 7.4-11.0 [facility] Platelets (Bld) [#/Vol] 365 10*3/uL Normal 130-400 [facility] RBC (Bld) [#/Vol] 3.10 10*6/uL Low 4.0-5.4 [facility] WBC (Bld) [#/Vol] 5.8 10*3/uL Normal 3.6-11.0 [facility] Laboratory - Chemistry and C hemistry - challengeon 02-06-2024 Anion gap [Moles/Vol] 2 mmol/L Low [facility] Calcium [Mass/Vol] 8.6 mg/dL [facility] Chloride [Moles/Vol] 104 mmol/L [facility] CO2 [Moles/Vol] 29 mmol/L [facility] Creatinine [Mass/Vol] 0.80 mg/dL [facility] CRP [Mass/Vol] 22.7 mg/L High 0 - 10 MG/L [facility] GFR/1.73 sq M.predicted among blacks MDRD (S/P/Bld) [Vol rate/Area] 89 mL/min/{1.73_m2} ml/min/1.73sq .m [facility] GFR/1.73 sq M.predicted among non-blacks MDRD (S/P/Bld) [Vol rate/Area] 73 mL/min/{1.73_m2} ml/min/1.73sq .m [facility] Glucose post fast [Mass/Vol] 100 mg/dL [facility] Potassium [Moles/Vol] 4.4 mmol/L [facility] Sodium [Moles/Vol] 135 mmol/L Low [facility] Urea nitrogen [Mass/Vol] 17 mg/dL [facility] Laboratory - Hematology and Cell countson 02-06-2024 Basophils/100 WBC (Bld) 0.8 % 0.0 - 2.0 % [facility] Differential cell count method Nom (Bld) AUTO DIFF % [facility] Eosinophils (Bld) [#/Vol] 0.2 10*3/uL 0.0 - 0.7 10*3/uL [facility] Eosinophils/100 WBC (Bld) 2.8 % 0.0 - 11.0 % [facility] Erythrocyte distribution width (RBC) [Ratio] 15.2 % High 11.5 - 14.5 % [facility] Hematocrit (Bld) [Volume fraction] 29.6 % Low 36.0 - 48.0 % [facility] Hemoglobin (Bld) [Mass/Vol] 10.1 g/dL Low [facility] Lymphocytes (Bld) [#/Vol] 1.5 10*3/uL 1.2 - 3.4 10*3/uL [facility] Lymphocytes/100 WBC (Bld) 25.0 % 20.0 - 55.0 % [facility] MCH (RBC) [Entitic mass] 32.5 pg 26.0 - 35.0 PG [facility] MCHC (RBC) [Mass/Vol] 34.0 g/dL [facility] MCV (RBC) [Entitic vol] 95.7 fL [facility] Monocytes (Bld) [#/Vol] 0.8 10*3/uL High 0.0 - 0.7 10*3/uL [facility] Monocytes/100 WBC (Bld) 12.9 % High 0.0 - 10.0 % [facility] Neutrophils (Bld) [#/Vol] 3.4 10*3/uL 1.4 - 6.5 10*3/uL [facility] Neutrophils/100 WBC (Bld) 58.5 % 37.0 - 75.0 % [facility] Platelet mean volume (Bld) [Entitic vol] 6.7 fL Low [facility] Platelets (Bld) [#/Vol] 365 10*3/uL 130 - 400 10*3/uL [facility] RBC (Bld) [#/Vol] 3.10 10*6/uL Low 4.0 - 5.4 10*6/uL [facility] WBC (Bld) [#/Vol] 5.8 10*3/uL 3.6 - 11.0 10*3/uL [facility] No Panel Informationon 02-05 GFR COMMENT Average GFR for 70+ years old = 75. [facility] Interpretation and review of laboratory results Abnormal [facility] ABSOLUTE BASOPHIL COUNT 0.0 10*3/uL 0.0 - 0.2 10*3/uL [facility] Interpretation and review of laboratory results Abnormal [facility] BMP FASTINGon 02-05-2024 Anion gap [Moles/Vol] 1 mmol/L Low 8-16 [facility] Comment on above: Performed By: #### A CBC ####Testing performed at [place] [id number] Calcium [Mass/Vol] 8.8 mg/dL Normal 8.4-10.2 [facility] Comment on above: Performed By: #### A CBC ####Testing performed at [address] [address] Chloride [Moles/Vol] 104 mmol/L Normal 98-107 [facility] Comment on above: Result Comment: Shonda matthews note: Triglyceride levels of 600mg/dL or higher may positively bias chloride results by approximately 2.1 mmol Performed By: #### A CBC ####Testing performed at [address] [address] CO2 [Moles/Vol] 30 mmol/L Normal 22-30 [facility] Comment on above: Performed By: #### A CBC ####Testing performed at [address] [address] Creatinine [Mass/Vol] 0.80 mg/dL Normal 0.7-1.2 [facility] Comment on above: Performed By: #### A CBC ####Testing performed at [address] [address] EST. GFR, 89 ml/min/1.73sq.m Normal [facility] Comment on above: Performed By: #### A CBC ####Testing performed at [address] [address] EST. GFR,Non 73 ml/min/1.73sq.m Normal [facility] Comment on above: Performed By: #### A CBC ####Testing performed at [address] [address] GFR Information Average GFR for 70+ years old = 75. Normal [facility] Comment on above: Result Comment: Director Of [employer] aviva Kidney disease, GFR = <60. Kidney failure, GFR = <15. The GFR estimate is not adjusted for extreme body surface area or acute process, nor has it been validated for women or ethnic groups other than and . Performed By: #### A CBC ####Testing performed at [address] [address] Glucose [Mass/Vol] 101 mg/dL High 70-100 [facility] Comment on above: Result Comment: NORMAL <100 mg/dL PREDIABETES 101-126 mg/dL DIABETES 126 mg/dL or higher Performed By: #### A CBC ####Testing performed at [address] [address] Potassium [Moles/Vol] 4.3 mmol/L Normal 3.5-5.1 [facility] Comment on above: Performed By: #### A CBC ####Testing performed at [address] [address] Sodium [Moles/Vol] 135 mmol/L Low 137-145 [facility] Comment on above: Performed By: #### A CBC ####Testing performed at [address] [address] Urea nitrogen [Mass/Vol] 14 mg/dL Normal 7-20 [facility] Comment on above: Performed By: #### A CBC ####Testing performed at [address] [address] C REACTIVE PROTEINon 02-04- 024 CRP [Mass/Vol] 21.0 mg/L High 0-10 [facility] Comment on above: Performed By: #### A CBC ####Testing performed at [address] [address] CBCon 02-05-2024 ABSOLUTE BAS 0.0 10*3/uL Normal 0.0-0.2 [facility] Comment on above: Performed By: #### A CBC ####Testing performed at [address] [place] [address] ABSOLUTE EOS 0.1 10*3/uL Normal 0.0-0.7 [facility] Comment on above: Performed By: #### A CBC ####Testing performed at [address] [place] [address] ABSOLUTE NEUTROPHIL COUNT 3.1 10*3/uL Normal 1.4-6.5 [facility] Comment on above: Performed By: #### A CBC ####Testing performed at [address] [address] Basophils/100 WBC (Bld) 0.9 % Normal 0.0-2.0 [facility] Comment on above: Performed By: #### A CBC ####Testing performed at [address] [place] [address] DTYPE AUTO DIFF Normal [facility] Comment on above: Performed By: #### A CBC ####Testing performed at [address] [address] Eosinophils/100 WBC (Bld) 2.6 % Normal 0.0-11.0 [facility] Comment on above: Performed By: #### A CBC ####Testing performed at [address] [place] [address] Lymphocytes (Bld) [#/Vol] 1.2 10*3/uL Normal 1.2-3.4 [facility] Comment on above: Performed By: #### A CBC ####Testing performed at [address] [place] [address] Lymphocytes/100 WBC (Bld) 23.7 % Normal 20.0-55.0 [facility] Comment on above: Performed By: #### A CBC ####Testing performed at [address] [address] Monocytes (Bld) [#/Vol] 0.6 10*3/uL Normal 0.0-0.7 [facility] Comment on above: Performed By: #### A CBC ####Testing performed at [address] [address] Monocytes/100 WBC (Bld) 11.8 % High 0.0-10.0 [facility] Comment on above: Performed By: #### A CBC ####Testing performed at [address] [address] Neutrophils/100 WBC (Bld) 61.0 % Normal 37.0-75.0 [facility] Comment on above: Performed By: #### A CBC ####Testing performed at [address] [address] Erythrocyte distribution width (RBC) [Ratio] 15.2 % High 11.5-14.5 [facility] Comment on above: Performed By: #### A CBC ####Testing performed at [address] [address] Hematocrit (Bld) [Volume fraction] 30.8 % Low 36.0-48.0 [facility] Comment on above: Performed By: #### A CBC ####Testing performed at [address] [address] Hemoglobin (Bld) [Mass/Vol] 10.4 g/dL Low 12.0-16.0 [facility] Comment on above: Performed By: #### A CBC ####Testing performed at [address] [address] MCH (RBC) [Entitic mass] 32.3 pg Normal 26.0-35.0 [facility] Comment on above: Performed By: #### A CBC ####Testing performed at [address] [address] MCHC (RBC) [Mass/Vol] 33.7 g/dL Normal 27.0-37.0 [facility] Comment on above: Performed By: #### A CBC ####Testing performed at [address] [address] MCV (RBC) [Entitic vol] 95.8 fL Normal 80.0-100.0 [facility] Comment on above: Performed By: #### A CBC ####Testing performed at [address] [address] Platelet mean volume (Bld) [Entitic vol] 6.6 fL Low 7.4-11.0 [facility] Comment on above: Performed By: #### A CBC ####Testing performed at [address] [address] Platelets (Bld) [#/Vol] 378 10*3/uL Normal 130-400 [facility] Comment on above: Performed By: #### A CBC ####Testing performed at [address] [address] RBC (Bld) [#/Vol] 3.22 10*6/uL Low 4.0-5.4 [facility] Comment on above: Performed By: #### A CBC ####Testing performed at [address] [address] WBC (Bld) [#/Vol] 5.0 10*3/uL Normal 3.6-11.0 [facility] Comment on above: Performed By: #### A CBC ####Testing performed at [address] [address] Laboratory - Chemistry and C hemistry - challengeon 02-05-2024 Anion gap [Moles/Vol] 1 mmol/L Low [facility] Calcium [Mass/Vol] 8.8 mg/dL [facility] Chloride [Moles/Vol] 104 mmol/L [facility] CO2 [Moles/Vol] 30 mmol/L [facility] Creatinine [Mass/Vol] 0.80 mg/dL [facility] CRP [Mass/Vol] 21.0 mg/L High 0 - 10 MG/L [facility] GFR/1.73 sq M.predicted among blacks MDRD (S/P/Bld) [Vol rate/Area] 89 mL/min/{1.73_m2} ml/min/1.73sq .m [facility] GFR/1.73 sq M.predicted among non-blacks MDRD (S/P/Bld) [Vol rate/Area] 73 mL/min/{1.73_m2} ml/min/1.73sq .m [facility] Glucose post fast [Mass/Vol] 101 mg/dL High [facility] Potassium [Moles/Vol] 4.3 mmol/L [facility] Sodium [Moles/Vol] 135 mmol/L Low [facility] Urea nitrogen [Mass/Vol] 14 mg/dL [facility] Laboratory - Hematology and Cell countson 02-05-2024 Basophils/100 WBC (Bld) 0.9 % 0.0 - 2.0 % [facility] Differential cell count method Nom (Bld) AUTO DIFF % [facility] Eosinophils (Bld) [#/Vol] 0.1 10*3/uL 0.0 - 0.7 10*3/uL [facility] Eosinophils/100 WBC (Bld) 2.6 % 0.0 - 11.0 % [facility] Erythrocyte distribution width (RBC) [Ratio] 15.2 % High 11.5 - 14.5 % [facility] Hematocrit (Bld) [Volume fraction] 30.8 % Low 36.0 - 48.0 % [facility] Hemoglobin (Bld) [Mass/Vol] 10.4 g/dL Low [facility] Lymphocytes (Bld) [#/Vol] 1.2 10*3/uL 1.2 - 3.4 10*3/uL [facility] Lymphocytes/100 WBC (Bld) 23.7 % 20.0 - 55.0 % [facility] MCH (RBC) [Entitic mass] 32.3 pg 26.0 - 35.0 PG [facility] MCHC (RBC) [Mass/Vol] 33.7 g/dL [facility] MCV (RBC) [Entitic vol] 95.8 fL [facility] Monocytes (Bld) [#/Vol] 0.6 10*3/uL 0.0 - 0.7 10*3/uL [facility] Monocytes/100 WBC (Bld) 11.8 % High 0.0 - 10.0 % [facility] Neutrophils (Bld) [#/Vol] 3.1 10*3/uL 1.4 - 6.5 10*3/uL [facility] Neutrophils/100 WBC (Bld) 61.0 % 37.0 - 75.0 % [facility] Platelet mean volume (Bld) [Entitic vol] 6.6 fL Low [facility] Platelets (Bld) [#/Vol] 378 10*3/uL 130 - 400 10*3/uL [facility] RBC (Bld) [#/Vol] 3.22 10*6/uL Low 4.0 - 5.4 10*6/uL [facility] WBC (Bld) [#/Vol] 5.0 10*3/uL 3.6 - 11.0 10*3/uL [facility] No Panel Informationon 02-04 GFR COMMENT Average GFR for 70+ years old = 75. [facility] Interpretation and review of laboratory results Abnormal [facility] ABSOLUTE BASOPHIL COUNT 0.0 10*3/uL 0.0 - 0.2 10*3/uL [facility] Interpretation and review of laboratory results Abnormal [facility] BMP FASTINGon 02-04-2024 Anion gap [Moles/Vol] 1 mmol/L Low 8-16 [facility] Calcium [Mass/Vol] 8.8 mg/dL Normal 8.4-10.2 [facility] Chloride [Moles/Vol] 104 mmol/L Normal 98-107 [facility] Comment on above: Result Comment: Sohnda matthews note: Triglyceride levels of 600mg/dL or higher may positively bias chloride results by approximately 2.1 mmol CO2 [Moles/Vol] 31 mmol/L High 22-30 [facility] Creatinine [Mass/Vol] 0.80 mg/dL Normal 0.7-1.2 [facility] EST. GFR, 89 ml/min/1.73sq.m Normal [facility] EST. GFR,Non 73 ml/min/1.73sq.m Normal [facility] GFR Information Average GFR for 70+ years old = 75. Normal [facility] Comment on above: Result Comment: Director Of [employer] aviva Kidney disease, GFR = <60. Kidney failure, GFR = <15. The GFR estimate is not adjusted for extreme body surface area or acute process, nor has it been validated for women or ethnic groups other than and . Glucose [Mass/Vol] 96 mg/dL Normal 70-100 [facility] Comment on above: Result Comment: NORMAL <100 mg/dL PREDIABETES 101-126 mg/dL DIABETES 126 mg/dL or higher Potassium [Moles/Vol] 4.4 mmol/L Normal 3.5-5.1 [facility] Sodium [Moles/Vol] 136 mmol/L Low 137-145 [facility] Urea nitrogen [Mass/Vol] 18 mg/dL Normal 7-20 [facility] C REACTIVE PROTEINon 024 CRP [Mass/Vol] 21.4 mg/L High 0-10 [facility] CBCon 02-04-2024 ABSOLUTE BAS 0.0 10*3/uL Normal 0.0-0.2 [facility] ABSOLUTE EOS 0.2 10*3/uL Normal 0.0-0.7 [facility] ABSOLUTE NEUTROPHIL COUNT 3.5 10*3/uL Normal 1.4-6.5 [facility] Basophils/100 WBC (Bld) 0.7 % Normal 0.0-2.0 [facility] DTYPE AUTO DIFF Normal [facility] Eosinophils/100 WBC (Bld) 3.2 % Normal 0.0-11.0 [facility] Lymphocytes (Bld) [#/Vol] 1.5 10*3/uL Normal 1.2-3.4 [facility] Lymphocytes/100 WBC (Bld) 24.7 % Normal 20.0-55.0 [facility] Monocytes (Bld) [#/Vol] 0.8 10*3/uL High 0.0-0.7 [facility] Monocytes/100 WBC (Bld) 12.5 % High 0.0-10.0 [facility] Neutrophils/100 WBC (Bld) 58.9 % Normal 37.0-75.0 [facility] Erythrocyte distribution width (RBC) [Ratio] 15.5 % High 11.5-14.5 [facility] Hematocrit (Bld) [Volume fraction] 30.0 % Low 36.0-48.0 [facility] Hemoglobin (Bld) [Mass/Vol] 10.2 g/dL Low 12.0-16.0 [facility] MCH (RBC) [Entitic mass] 32.4 pg Normal 26.0-35.0 [facility] MCHC (RBC) [Mass/Vol] 33.8 g/dL Normal 27.0-37.0 [facility] MCV (RBC) [Entitic vol] 95.7 fL Normal 80.0-100.0 [facility] Platelet mean volume (Bld) [Entitic vol] 6.8 fL Low 7.4-11.0 [facility] Platelets (Bld) [#/Vol] 415 10*3/uL High 130-400 [facility] RBC (Bld) [#/Vol] 3.14 10*6/uL Low 4.0-5.4 [facility] WBC (Bld) [#/Vol] 6.0 10*3/uL Normal 3.6-11.0 [facility] Laboratory - Chemistry and C hemistry - challengeon 02-04-2024 Anion gap [Moles/Vol] 1 mmol/L Low [facility] Calcium [Mass/Vol] 8.8 mg/dL [facility] Chloride [Moles/Vol] 104 mmol/L [facility] CO2 [Moles/Vol] 31 mmol/L High [facility] Creatinine [Mass/Vol] 0.80 mg/dL [facility] CRP [Mass/Vol] 21.4 mg/L High 0 - 10 MG/L [facility] GFR/1.73 sq M.predicted among blacks MDRD (S/P/Bld) [Vol rate/Area] 89 mL/min/{1.73_m2} ml/min/1.73sq .m [facility] GFR/1.73 sq M.predicted among non-blacks MDRD (S/P/Bld) [Vol rate/Area] 73 mL/min/{1.73_m2} ml/min/1.73sq .m [facility] Glucose post fast [Mass/Vol] 96 mg/dL [facility] Potassium [Moles/Vol] 4.4 mmol/L [facility] Sodium [Moles/Vol] 136 mmol/L Low [facility] Urea nitrogen [Mass/Vol] 18 mg/dL [facility] Laboratory - Hematology and Cell countson 02-04-2024 Basophils/100 WBC (Bld) 0.7 % 0.0 - 2.0 % [facility] Differential cell count method Nom (Bld) AUTO DIFF % [facility] Eosinophils (Bld) [#/Vol] 0.2 10*3/uL 0.0 - 0.7 10*3/uL [facility] Eosinophils/100 WBC (Bld) 3.2 % 0.0 - 11.0 % [facility] Erythrocyte distribution width (RBC) [Ratio] 15.5 % High 11.5 - 14.5 % [facility] Hematocrit (Bld) [Volume fraction] 30.0 % Low 36.0 - 48.0 % [facility] Hemoglobin (Bld) [Mass/Vol] 10.2 g/dL Low [facility] Lymphocytes (Bld) [#/Vol] 1.5 10*3/uL 1.2 - 3.4 10*3/uL [facility] Lymphocytes/100 WBC (Bld) 24.7 % 20.0 - 55.0 % [facility] MCH (RBC) [Entitic mass] 32.4 pg 26.0 - 35.0 PG [facility] MCHC (RBC) [Mass/Vol] 33.8 g/dL [facility] MCV (RBC) [Entitic vol] 95.7 fL [facility] Monocytes (Bld) [#/Vol] 0.8 10*3/uL High 0.0 - 0.7 10*3/uL [facility] Monocytes/100 WBC (Bld) 12.5 % High 0.0 - 10.0 % [facility] Neutrophils (Bld) [#/Vol] 3.5 10*3/uL 1.4 - 6.5 10*3/uL [facility] Neutrophils/100 WBC (Bld) 58.9 % 37.0 - 75.0 % [facility] Platelet mean volume (Bld) [Entitic vol] 6.8 fL Low [facility] Platelets (Bld) [#/Vol] 415 10*3/uL High 130 - 400 10*3/uL [facility] RBC (Bld) [#/Vol] 3.14 10*6/uL Low 4.0 - 5.4 10*6/uL [facility] WBC (Bld) [#/Vol] 6.0 10*3/uL 3.6 - 11.0 10*3/uL [facility] No Panel Informationon 02-03 ABSOLUTE BASOPHIL COUNT 0.0 10*3/uL 0.0 - 0.2 10*3/uL [facility] Interpretation and review of laboratory results Abnormal [facility] GFR COMMENT Average GFR for 70+ years old = 75. [facility] Interpretation and review of laboratory results Abnormal [facility] BMP FASTINGon 02-03-2024 Anion gap [Moles/Vol] 2 mmol/L Low 8-16 [facility] Calcium [Mass/Vol] 9.1 mg/dL Normal 8.4-10.2 [facility] Chloride [Moles/Vol] 104 mmol/L Normal 98-107 [facility] Comment on above: Result Comment: Shonda matthews note: Triglyceride levels of 600mg/dL or higher may positively bias chloride results by approximately 2.1 mmol CO2 [Moles/Vol] 29 mmol/L Normal 22-30 [facility] Creatinine [Mass/Vol] 0.90 mg/dL Normal 0.7-1.2 [facility] EST. GFR, 77 ml/min/1.73sq.m Normal [facility] EST. GFR,Non 64 ml/min/1.73sq.m Normal [facility] GFR Information Average GFR for 70+ years old = 75. Normal [facility] Comment on above: Result Comment: Director Of [employer] aviva Kidney disease, GFR = <60. Kidney failure, GFR = <15. The GFR estimate is not adjusted for extreme body surface area or acute process, nor has it been validated for women or ethnic groups other than and . Glucose [Mass/Vol] 100 mg/dL Normal 70-100 [facility] Comment on above: Result Comment: NORMAL <100 mg/dL PREDIABETES 101-126 mg/dL DIABETES 126 mg/dL or higher Potassium [Moles/Vol] 4.4 mmol/L Normal 3.5-5.1 [facility] Sodium [Moles/Vol] 135 mmol/L Low 137-145 [facility] Urea nitrogen [Mass/Vol] 17 mg/dL Normal 7-20 [facility] C REACTIVE PROTEINon 024 CRP [Mass/Vol] 21.9 mg/L High 0-10 [facility] CBCon 02-03-2024 ABSOLUTE BAS 0.1 10*3/uL Normal 0.0-0.2 [facility] ABSOLUTE EOS 0.2 10*3/uL Normal 0.0-0.7 [facility] ABSOLUTE NEUTROPHIL COUNT 3.6 10*3/uL Normal 1.4-6.5 [facility] Basophils/100 WBC (Bld) 1.2 % Normal 0.0-2.0 [facility] DTYPE AUTO DIFF Normal [facility] Eosinophils/100 WBC (Bld) 3.4 % Normal 0.0-11.0 [facility] Lymphocytes (Bld) [#/Vol] 1.6 10*3/uL Normal 1.2-3.4 [facility] Lymphocytes/100 WBC (Bld) 26.1 % Normal 20.0-55.0 [facility] Monocytes (Bld) [#/Vol] 0.7 10*3/uL Normal 0.0-0.7 [facility] Monocytes/100 WBC (Bld) 11.8 % High 0.0-10.0 [facility] Neutrophils/100 WBC (Bld) 57.5 % Normal 37.0-75.0 [facility] Erythrocyte distribution width (RBC) [Ratio] 15.0 % High 11.5-14.5 [facility] Hematocrit (Bld) [Volume fraction] 31.8 % Low 36.0-48.0 [facility] Hemoglobin (Bld) [Mass/Vol] 10.7 g/dL Low 12.0-16.0 [facility] MCH (RBC) [Entitic mass] 32.3 pg Normal 26.0-35.0 [facility] MCHC (RBC) [Mass/Vol] 33.7 g/dL Normal 27.0-37.0 [facility] MCV (RBC) [Entitic vol] 95.8 fL Normal 80.0-100.0 [facility] Platelet mean volume (Bld) [Entitic vol] 6.4 fL Low 7.4-11.0 [facility] Platelets (Bld) [#/Vol] 472 10*3/uL High 130-400 [facility] RBC (Bld) [#/Vol] 3.31 10*6/uL Low 4.0-5.4 [facility] WBC (Bld) [#/Vol] 6.3 10*3/uL Normal 3.6-11.0 [facility] Laboratory - Chemistry and C hemistry - challengeon 02-03-2024 Bilirubin Ql (U) Negative NEGATIVE [facility] pH (U) 7.0 [pH] 5.0 - 7.0 [facility] Specific gravity (U) [Rel density] 1.015 1.010 - 1.025 [facility] Urobilinogen (U) [Mass/Vol] 0.2 mg/dL [facility] Anion gap [Moles/Vol] 2 mmol/L Low [facility] Calcium [Mass/Vol] 9.1 mg/dL [facility] Chloride [Moles/Vol] 104 mmol/L [facility] CO2 [Moles/Vol] 29 mmol/L [facility] Creatinine [Mass/Vol] 0.90 mg/dL [facility] CRP [Mass/Vol] 21.9 mg/L High 0 - 10 MG/L [facility] GFR/1.73 sq M.predicted among blacks MDRD (S/P/Bld) [Vol rate/Area] 77 mL/min/{1.73_m2} ml/min/1.73sq .m [facility] GFR/1.73 sq M.predicted among non-blacks MDRD (S/P/Bld) [Vol rate/Area] 64 mL/min/{1.73_m2} ml/min/1.73sq .m [facility] Glucose post fast [Mass/Vol] 100 mg/dL [facility] Potassium [Moles/Vol] 4.4 mmol/L [facility] Sodium [Moles/Vol] 135 mmol/L Low [facility] Urea nitrogen [Mass/Vol] 17 mg/dL [facility] Laboratory - Hematology and Cell countson 02-03-2024 Hemoglobin Ql (U) Negative NEGATIVE [facility] Basophils/100 WBC (Bld) 1.2 % 0.0 - 2.0 % [facility] Differential cell count method Nom (Bld) AUTO DIFF % [facility] Eosinophils (Bld) [#/Vol] 0.2 10*3/uL 0.0 - 0.7 10*3/uL [facility] Eosinophils/100 WBC (Bld) 3.4 % 0.0 - 11.0 % [facility] Erythrocyte distribution width (RBC) [Ratio] 15.0 % High 11.5 - 14.5 % [facility] Hematocrit (Bld) [Volume fraction] 31.8 % Low 36.0 - 48.0 % [facility] Hemoglobin (Bld) [Mass/Vol] 10.7 g/dL Low [facility] Lymphocytes (Bld) [#/Vol] 1.6 10*3/uL 1.2 - 3.4 10*3/uL [facility] Lymphocytes/100 WBC (Bld) 26.1 % 20.0 - 55.0 % [facility] MCH (RBC) [Entitic mass] 32.3 pg 26.0 - 35.0 PG [facility] MCHC (RBC) [Mass/Vol] 33.7 g/dL [facility] MCV (RBC) [Entitic vol] 95.8 fL [facility] Monocytes (Bld) [#/Vol] 0.7 10*3/uL 0.0 - 0.7 10*3/uL [facility] Monocytes/100 WBC (Bld) 11.8 % High 0.0 - 10.0 % [facility] Neutrophils (Bld) [#/Vol] 3.6 10*3/uL 1.4 - 6.5 10*3/uL [facility] Neutrophils/100 WBC (Bld) 57.5 % 37.0 - 75.0 % [facility] Platelet mean volume (Bld) [Entitic vol] 6.4 fL Low [facility] Platelets (Bld) [#/Vol] 472 10*3/uL High 130 - 400 10*3/uL [facility] RBC (Bld) [#/Vol] 3.31 10*6/uL Low 4.0 - 5.4 10*6/uL [facility] WBC (Bld) [#/Vol] 6.3 10*3/uL 3.6 - 11.0 10*3/uL [facility] Laboratory - Specimen inform ationon 02-03-2024 Clarity (U) CLEAR CLEAR [facility] Color (U) YELLOW YELLOW [facility] Laboratory - Urinalysison Glucose Test strip (U) [Mass/Vol] Negative NEGATIVE mg/dl [facility] Ketones (U) [Mass/Vol] Negative NEGATIVE mg/dl [facility] Leukocyte esterase Test strip Ql (U) Negative NEGATIVE [facility] Nitrite Ql (U) Negative NEGATIVE [facility] Protein Ql (U) Negative NEGATIVE mg/dl [facility] No Panel Informationon 02-02 [facility] GFR COMMENT Average GFR for 70+ years old = 75. [facility] Interpretation and review of laboratory results Abnormal [facility] ABSOLUTE BASOPHIL COUNT 0.1 10*3/uL 0.0 - 0.2 10*3/uL [facility] Interpretation and review of laboratory results Abnormal [facility] URINE MACROSCOPICon 02-03-20 Bilirubin Ql (U) Negative Normal NEGATIVE [facility] Clarity (U) CLEAR Normal CLEAR [facility] Color (U) YELLOW Normal YELLOW [facility] Glucose Ql (U) Negative Normal NEGATIVE [facility] pH (U) 7.0 [pH] Normal 5.0-7.0 [facility] URINE HEMOGLOBIN Negative Normal NEGATIVE [facility] URINE KETONE Negative Normal NEGATIVE [facility] URINE LEUKOTEST Negative Normal NEGATIVE [facility] URINE NITRATES Negative Normal NEGATIVE [facility] URINE SPEC GRAVITY 1.015 Normal 1.010-1.025 [facility] URINE TOTAL PROTEIN Negative Normal NEGATIVE [facility] Urobilinogen Qn (U) 0.2 {Monique'U}/dL Normal 0.2-1.0 [facility] BMP FASTINGon 02-02-2024 Anion gap [Moles/Vol] 1 mmol/L Low 8-16 [facility] Comment on above: Performed By: #### A CBC #### [place] [address] Calcium [Mass/Vol] 8.9 mg/dL Normal 8.4-10.2 [facility] Comment on above: Performed By: #### A CBC #### Testing performed at [address] [address] Chloride [Moles/Vol] 103 mmol/L Normal 98-107 [facility] Comment on above: Result Comment: Shonda matthews note: Triglyceride levels of 600mg/dL or higher may positively bias chloride results by approximately 2.1 mmol Performed By: #### A CBC #### Testing performed at [address] [address] CO2 [Moles/Vol] 30 mmol/L Normal 22-30 [facility] Comment on above: Performed By: #### A CBC #### Testing performed at [address] [address] Creatinine [Mass/Vol] 0.90 mg/dL Normal 0.7-1.2 [facility] Comment on above: Performed By: #### A CBC #### Testing performed at [address] [address] EST. GFR, 77 ml/min/1.73sq.m [facility] Comment on above: Performed By: #### A CBC #### Testing performed at [address] [address] EST. GFR,Non 64 ml/min/1.73sq.m [facility] Comment on above: Performed By: #### A CBC #### Testing performed at [address] [address] GFR Information Average GFR for 70+ years old = 75. [facility] Comment on above: Result Comment: Director Of [employer]gr[employer] aviva Kidney disease, GFR = <60. Kidney failure, GFR = <15. The GFR estimate is not adjusted for extreme body surface area or acute process, nor has it been validated for women or ethnic groups other than and . Performed By: #### A CBC #### Testing performed at [address] [address] Glucose [Mass/Vol] 103 mg/dL High 70-100 [facility] Comment on above: Result Comment: NORMAL <100 mg/dL PREDIABETES 101-126 mg/dL DIABETES 126 mg/dL or higher Performed By: #### A CBC #### Testing performed at [address] [address] Potassium [Moles/Vol] 4.2 mmol/L Normal 3.5-5.1 [facility] Comment on above: Performed By: #### A CBC #### Testing performed at [address] [address] Sodium [Moles/Vol] 134 mmol/L Low 137-145 [facility] Comment on above: Performed By: #### A CBC #### Testing performed at [address] [address] Urea nitrogen [Mass/Vol] 18 mg/dL Normal 7-20 [facility] Comment on above: Performed By: #### A CBC #### Testing performed at [address] [address] C REACTIVE PROTEINon 024 CRP [Mass/Vol] 26.3 mg/L High 0-10 [facility] Comment on above: Performed By: #### A CBC #### Testing performed at [address] [address] CBCon 02-02-2024 ABSOLUTE BAS 0.1 10*3/uL Normal 0.0-0.2 [facility] Comment on above: Performed By: #### A CBC #### Testing performed at [address] [address] ABSOLUTE EOS 0.2 10*3/uL Normal 0.0-0.7 [facility] Comment on above: Performed By: #### A CBC #### Testing performed at [address] [address] ABSOLUTE NEUTROPHIL COUNT 3.4 10*3/uL Normal 1.4-6.5 [facility] Comment on above: Performed By: #### A CBC #### Testing performed at [address] [address] Basophils/100 WBC (Bld) 0.9 % Normal 0.0-2.0 [facility] Comment on above: Performed By: #### A CBC #### Testing performed at [address] [address] DTYPE AUTO DIFF Normal [facility] Comment on above: Performed By: #### A CBC #### Testing performed at [address] [address] Eosinophils/100 WBC (Bld) 3.7 % Normal 0.0-11.0 [facility] Comment on above: Performed By: #### A CBC #### Testing performed at [address] [place] [address] Lymphocytes (Bld) [#/Vol] 1.6 10*3/uL Normal 1.2-3.4 [facility] Comment on above: Performed By: #### A CBC #### Testing performed at [address] [address] Lymphocytes/100 WBC (Bld) 26.5 % Normal 20.0-55.0 [facility] Comment on above: Performed By: #### A CBC #### Testing performed at [address] [address] Monocytes (Bld) [#/Vol] 0.8 10*3/uL High 0.0-0.7 [facility] Comment on above: Performed By: #### A CBC #### Testing performed at [address] [address] Monocytes/100 WBC (Bld) 12.8 % High 0.0-10.0 [facility] Comment on above: Performed By: #### A CBC #### Testing performed at [address] [address] Neutrophils/100 WBC (Bld) 56.1 % Normal 37.0-75.0 [facility] Comment on above: Performed By: #### A CBC #### Testing performed at [address] [address] Erythrocyte distribution width (RBC) [Ratio] 15.2 % High 11.5-14.5 [facility] Comment on above: Performed By: #### A CBC #### Testing performed at [address] [address] Hematocrit (Bld) [Volume fraction] 31.1 % Low 36.0-48.0 [facility] Comment on above: Performed By: #### A CBC #### Testing performed at [address] [address] Hemoglobin (Bld) [Mass/Vol] 10.5 g/dL Low 12.0-16.0 [facility] Comment on above: Performed By: #### A CBC #### Testing performed at [address] [address] MCH (RBC) [Entitic mass] 32.4 pg Normal 26.0-35.0 [facility] Comment on above: Performed By: #### A CBC #### Testing performed at [address] [address] MCHC (RBC) [Mass/Vol] 33.8 g/dL Normal 27.0-37.0 [facility] Comment on above: Performed By: #### A CBC #### Testing performed at [address] [address] MCV (RBC) [Entitic vol] 95.9 fL Normal 80.0-100.0 [facility] Comment on above: Performed By: #### A CBC #### Testing performed at [address] [address] Platelet mean volume (Bld) [Entitic vol] 6.5 fL Low 7.4-11.0 [facility] Comment on above: Performed By: #### A CBC #### Testing performed at [address] [address] Platelets (Bld) [#/Vol] 429 10*3/uL High 130-400 [facility] Comment on above: Performed By: #### A CBC #### Testing performed at [address] [address] RBC (Bld) [#/Vol] 3.24 10*6/uL Low 4.0-5.4 [facility] Comment on above: Performed By: #### A CBC #### Testing performed at [address] [address] WBC (Bld) [#/Vol] 6.0 10*3/uL Normal 3.6-11.0 [facility] Comment on above: Performed By: #### A CBC #### Testing performed at [facility] [address] [place] [address] Laboratory - Chemistry and C hemistry - challengeon 02-02-2024 Anion gap [Moles/Vol] 1 mmol/L Low [facility] Calcium [Mass/Vol] 8.9 mg/dL [facility] Chloride [Moles/Vol] 103 mmol/L [facility] CO2 [Moles/Vol] 30 mmol/L [facility] Creatinine [Mass/Vol] 0.90 mg/dL [facility] CRP [Mass/Vol] 26.3 mg/L High 0 - 10 MG/L [facility] GFR/1.73 sq M.predicted among blacks MDRD (S/P/Bld) [Vol rate/Area] 77 mL/min/{1.73_m2} ml/min/1.73sq .m [facility] GFR/1.73 sq M.predicted among non-blacks MDRD (S/P/Bld) [Vol rate/Area] 64 mL/min/{1.73_m2} ml/min/1.73sq .m [facility] Glucose post fast [Mass/Vol] 103 mg/dL High [facility] Potassium [Moles/Vol] 4.2 mmol/L [facility] Sodium [Moles/Vol] 134 mmol/L Low [facility] Urea nitrogen [Mass/Vol] 18 mg/dL [facility] Laboratory - Hematology and Cell countson 02-02-2024 Basophils/100 WBC (Bld) 0.9 % 0.0 - 2.0 % [facility] Differential cell count method Nom (Bld) AUTO DIFF % [facility] Eosinophils (Bld) [#/Vol] 0.2 10*3/uL 0.0 - 0.7 10*3/uL [facility] Eosinophils/100 WBC (Bld) 3.7 % 0.0 - 11.0 % [facility] Erythrocyte distribution width (RBC) [Ratio] 15.2 % High 11.5 - 14.5 % [facility] Hematocrit (Bld) [Volume fraction] 31.1 % Low 36.0 - 48.0 % [facility] Hemoglobin (Bld) [Mass/Vol] 10.5 g/dL Low [facility] Lymphocytes (Bld) [#/Vol] 1.6 10*3/uL 1.2 - 3.4 10*3/uL [facility] Lymphocytes/100 WBC (Bld) 26.5 % 20.0 - 55.0 % [facility] MCH (RBC) [Entitic mass] 32.4 pg 26.0 - 35.0 PG [facility] MCHC (RBC) [Mass/Vol] 33.8 g/dL [facility] MCV (RBC) [Entitic vol] 95.9 fL [facility] Monocytes (Bld) [#/Vol] 0.8 10*3/uL High 0.0 - 0.7 10*3/uL [facility] Monocytes/100 WBC (Bld) 12.8 % High 0.0 - 10.0 % [facility] Neutrophils (Bld) [#/Vol] 3.4 10*3/uL 1.4 - 6.5 10*3/uL [facility] Neutrophils/100 WBC (Bld) 56.1 % 37.0 - 75.0 % [facility] Platelet mean volume (Bld) [Entitic vol] 6.5 fL Low [facility] Platelets (Bld) [#/Vol] 429 10*3/uL High 130 - 400 10*3/uL [facility] RBC (Bld) [#/Vol] 3.24 10*6/uL Low 4.0 - 5.4 10*6/uL [facility] WBC (Bld) [#/Vol] 6.0 10*3/uL 3.6 - 11.0 10*3/uL [facility] No Panel Informationon 02-01 GFR COMMENT Average GFR for 70+ years old = 75. [facility] Interpretation and review of laboratory results Abnormal [facility] ABSOLUTE BASOPHIL COUNT 0.1 10*3/uL 0.0 - 0.2 10*3/uL [facility] Interpretation and review of laboratory results Abnormal [facility] BMP FASTINGon 02-01-2024 Anion gap [Moles/Vol] 2 mmol/L Low - [facility] Calcium [Mass/Vol] 8.9 mg/dL Normal 8.4-10.2 [facility] Chloride [Moles/Vol] 103 mmol/L Normal 98-107 [facility] Comment on above: Result Comment: Shonda matthews note: Triglyceride levels of 600mg/dL or higher may positively bias chloride results by approximately 2.1 mmol CO2 [Moles/Vol] 28 mmol/L Normal 22-30 [facility] Creatinine [Mass/Vol] 0.90 mg/dL Normal 0.7-1.2 [facility] EST. GFR, 77 ml/min/1.73sq.m Normal [facility] EST. GFR,Non 64 ml/min/1.73sq.m Normal [facility] GFR Information Average GFR for 70+ years old = 75. Normal [facility] Comment on above: Result Comment: Director Of [employer]gr[employer] aviva Kidney disease, GFR = <60. Kidney failure, GFR = <15. The GFR estimate is not adjusted for extreme body surface area or acute process, nor has it been validated for women or ethnic groups other than and . Glucose [Mass/Vol] 98 mg/dL Normal 70-100 [facility] Comment on above: Result Comment: NORMAL <100 mg/dL PREDIABETES 101-126 mg/dL DIABETES 126 mg/dL or higher Potassium [Moles/Vol] 4.4 mmol/L Normal 3.5-5.1 [facility] Sodium [Moles/Vol] 133 mmol/L Low 137-145 [facility] Urea nitrogen [Mass/Vol] 14 mg/dL Normal 7-20 [facility] C REACTIVE PROTEINon 024 CRP [Mass/Vol] 26.1 mg/L High 0-10 [facility] CBCon 02-01-2024 ABSOLUTE BAS 0.1 10*3/uL Normal 0.0-0.2 [facility] ABSOLUTE EOS 0.1 10*3/uL Normal 0.0-0.7 [facility] ABSOLUTE NEUTROPHIL COUNT 3.0 10*3/uL Normal 1.4-6.5 [facility] Basophils/100 WBC (Bld) 1.1 % Normal 0.0-2.0 [facility] DTYPE AUTO DIFF Normal [facility] Eosinophils/100 WBC (Bld) 2.6 % Normal 0.0-11.0 [facility] Lymphocytes (Bld) [#/Vol] 1.7 10*3/uL Normal 1.2-3.4 [facility] Lymphocytes/100 WBC (Bld) 28.9 % Normal 20.0-55.0 [facility] Monocytes (Bld) [#/Vol] 0.9 10*3/uL High 0.0-0.7 [facility] Monocytes/100 WBC (Bld) 15.1 % High 0.0-10.0 [facility] Neutrophils/100 WBC (Bld) 52.3 % Normal 37.0-75.0 [facility] Erythrocyte distribution width (RBC) [Ratio] 14.8 % High 11.5-14.5 [facility] Hematocrit (Bld) [Volume fraction] 31.4 % Low 36.0-48.0 [facility] Hemoglobin (Bld) [Mass/Vol] 10.6 g/dL Low 12.0-16.0 [facility] MCH (RBC) [Entitic mass] 32.4 pg Normal 26.0-35.0 [facility] MCHC (RBC) [Mass/Vol] 33.9 g/dL Normal 27.0-37.0 [facility] MCV (RBC) [Entitic vol] 95.5 fL Normal 80.0-100.0 [facility] Platelet mean volume (Bld) [Entitic vol] 6.4 fL Low 7.4-11.0 [facility] Platelets (Bld) [#/Vol] 479 10*3/uL High 130-400 [facility] RBC (Bld) [#/Vol] 3.29 10*6/uL Low 4.0-5.4 [facility] WBC (Bld) [#/Vol] 5.8 10*3/uL Normal 3.6-11.0 [facility] Laboratory - Chemistry and C hemistry - challengeon 07-16-2024 Anion gap [Moles/Vol] 2 mmol/L Low [facility] Calcium [Mass/Vol] 8.9 mg/dL [facility] Chloride [Moles/Vol] 103 mmol/L [facility] CO2 [Moles/Vol] 28 mmol/L [facility] Creatinine [Mass/Vol] 0.90 mg/dL [facility] CRP [Mass/Vol] 26.1 mg/L High 0 - 10 MG/L [facility] GFR/1.73 sq M.predicted among blacks MDRD (S/P/Bld) [Vol rate/Area] 77 mL/min/{1.73_m2} ml/min/1.73sq .m [facility] GFR/1.73 sq M.predicted among non-blacks MDRD (S/P/Bld) [Vol rate/Area] 64 mL/min/{1.73_m2} ml/min/1.73sq .m [facility] Glucose post fast [Mass/Vol] 98 mg/dL [facility] Potassium [Moles/Vol] 4.4 mmol/L [facility] Sodium [Moles/Vol] 133 mmol/L Low [facility] Urea nitrogen [Mass/Vol] 14 mg/dL [facility] Laboratory - Hematology and Cell countson 02-01-2024 Basophils/100 WBC (Bld) 1.1 % 0.0 - 2.0 % [facility] Differential cell count method Nom (Bld) AUTO DIFF % [facility] Eosinophils (Bld) [#/Vol] 0.1 10*3/uL 0.0 - 0.7 10*3/uL [facility] Eosinophils/100 WBC (Bld) 2.6 % 0.0 - 11.0 % [facility] Erythrocyte distribution width (RBC) [Ratio] 14.8 % High 11.5 - 14.5 % [facility] Hematocrit (Bld) [Volume fraction] 31.4 % Low 36.0 - 48.0 % [facility] Hemoglobin (Bld) [Mass/Vol] 10.6 g/dL Low [facility] Lymphocytes (Bld) [#/Vol] 1.7 10*3/uL 1.2 - 3.4 10*3/uL [facility] Lymphocytes/100 WBC (Bld) 28.9 % 20.0 - 55.0 % [facility] MCH (RBC) [Entitic mass] 32.4 pg 26.0 - 35.0 PG [facility] MCHC (RBC) [Mass/Vol] 33.9 g/dL [facility] MCV (RBC) [Entitic vol] 95.5 fL [facility] Monocytes (Bld) [#/Vol] 0.9 10*3/uL High 0.0 - 0.7 10*3/uL [facility] Monocytes/100 WBC (Bld) 15.1 % High 0.0 - 10.0 % [facility] Neutrophils (Bld) [#/Vol] 3.0 10*3/uL 1.4 - 6.5 10*3/uL [facility] Neutrophils/100 WBC (Bld) 52.3 % 37.0 - 75.0 % [facility] Platelet mean volume (Bld) [Entitic vol] 6.4 fL Low [facility] Platelets (Bld) [#/Vol] 479 10*3/uL High 130 - 400 10*3/uL [facility] RBC (Bld) [#/Vol] 3.29 10*6/uL Low 4.0 - 5.4 10*6/uL [facility] WBC (Bld) [#/Vol] 5.8 10*3/uL 3.6 - 11.0 10*3/uL [facility] No Panel Informationon 01-31 GFR COMMENT Average GFR for 70+ years old = 75. [facility] Interpretation and review of laboratory results Abnormal [facility] ABSOLUTE BASOPHIL COUNT 0.1 10*3/uL 0.0 - 0.2 10*3/uL [facility] Interpretation and review of laboratory results Abnormal [facility] BMP FASTINGon 01-31-2024 Anion gap [Moles/Vol] Negative Normal -16 [facility] Calcium [Mass/Vol] 8.7 mg/dL Normal 8.4-10.2 [facility] Chloride [Moles/Vol] 102 mmol/L Normal 98-107 [facility] Comment on above: Result Comment: Shonda matthews note: Triglyceride levels of 600mg/dL or higher may positively bias chloride results by approximately 2.1 mmol CO2 [Moles/Vol] 33 mmol/L High 22-30 [facility] Creatinine [Mass/Vol] 1.10 mg/dL Normal 0.7-1.2 [facility] EST. GFR, 61 ml/min/1.73sq.m Normal [facility] EST. GFR,Non 51 ml/min/1.73sq.m Normal [facility] GFR Information Average GFR for 70+ years old = 75. Normal [facility] Comment on above: Result Comment: Director Of [employer]gr[employer] aviva Kidney disease, GFR = <60. Kidney failure, GFR = <15. The GFR estimate is not adjusted for extreme body surface area or acute process, nor has it been validated for women or ethnic groups other than and . Glucose [Mass/Vol] 94 mg/dL Normal 70-100 [facility] Comment on above: Result Comment: NORMAL <100 mg/dL PREDIABETES 101-126 mg/dL DIABETES 126 mg/dL or higher Potassium [Moles/Vol] 4.5 mmol/L Normal 3.5-5.1 [facility] Sodium [Moles/Vol] 134 mmol/L Low 137-145 [facility] Urea nitrogen [Mass/Vol] 12 mg/dL Normal 7-20 [facility] C REACTIVE PROTEINon 024 CRP [Mass/Vol] 27.5 mg/L High 0-10 [facility] CBCon 01-31-2024 ABSOLUTE BAS 0.1 10*3/uL Normal 0.0-0.2 [facility] ABSOLUTE EOS 0.2 10*3/uL Normal 0.0-0.7 [facility] ABSOLUTE NEUTROPHIL COUNT 2.5 10*3/uL Normal 1.4-6.5 [facility] Basophils/100 WBC (Bld) 1.4 % Normal 0.0-2.0 [facility] DTYPE AUTO DIFF Normal [facility] Eosinophils/100 WBC (Bld) 3.6 % Normal 0.0-11.0 [facility] Lymphocytes (Bld) [#/Vol] 1.5 10*3/uL Normal 1.2-3.4 [facility] Lymphocytes/100 WBC (Bld) 28.8 % Normal 20.0-55.0 [facility] Monocytes (Bld) [#/Vol] 0.8 10*3/uL High 0.0-0.7 [facility] Monocytes/100 WBC (Bld) 16.5 % High 0.0-10.0 [facility] Neutrophils/100 WBC (Bld) 49.7 % Normal 37.0-75.0 [facility] Erythrocyte distribution width (RBC) [Ratio] 14.9 % High 11.5-14.5 [facility] Hematocrit (Bld) [Volume fraction] 29.3 % Low 36.0-48.0 [facility] Hemoglobin (Bld) [Mass/Vol] 10.0 g/dL Low 12.0-16.0 [facility] MCH (RBC) [Entitic mass] 32.5 pg Normal 26.0-35.0 [facility] MCHC (RBC) [Mass/Vol] 34.1 g/dL Normal 27.0-37.0 [facility] MCV (RBC) [Entitic vol] 95.2 fL Normal 80.0-100.0 [facility] Platelet mean volume (Bld) [Entitic vol] 6.3 fL Low 7.4-11.0 [facility] Platelets (Bld) [#/Vol] 439 10*3/uL High 130-400 [facility] RBC (Bld) [#/Vol] 3.08 10*6/uL Low 4.0-5.4 [facility] WBC (Bld) [#/Vol] 5.1 10*3/uL Normal 3.6-11.0 [facility] LIPASE,SERUMon 01-31-2024 LIPASE,SERUM 43 U/L Normal 23-300 [facility] LIVER PANELon 01-31-2024 Albumin [Mass/Vol] 3.0 g/dL Low 3.5-5.0 [facility] ALP [Catalytic activity/Vol] 107 U/L Normal 38-126 [facility] ALT [Catalytic activity/Vol] 13 U/L Normal <35 [facility] AST [Catalytic activity/Vol] 26 U/L Normal 14-36 [facility] Bilirubin [Mass/Vol] 0.2 mg/dL Normal 0.2-1.3 [facility] Bilirubin.indirect [Mass/Vol] 0.2 mg/dL Normal 0-0.4 [facility] Protein [Mass/Vol] 6.1 g/dL Low 6.3-8.2 [facility] Laboratory - Chemistry and C hemistry - challengeon 01-31-2024 Prealbumin [Mass/Vol] 11.9 mg/dL Low [facility] Albumin [Mass/Vol] 3.0 g/dL Low [facility] ALP [Catalytic activity/Vol] 107 U/L [facility] ALT [Catalytic activity/Vol] 13 U/L NINF [facility] Anion gap [Moles/Vol] Negative [facility] AST [Catalytic activity/Vol] 26 U/L [facility] Bilirubin [Mass/Vol] 0.2 mg/dL [facility] Bilirubin.direct [Mass/Vol] 0.2 mg/dL [facility] Calcium [Mass/Vol] 8.7 mg/dL [facility] Chloride [Moles/Vol] 102 mmol/L [facility] CO2 [Moles/Vol] 33 mmol/L High [facility] Creatinine [Mass/Vol] 1.10 mg/dL [facility] CRP [Mass/Vol] 27.5 mg/L High 0 - 10 MG/L [facility] GFR/1.73 sq M.predicted among blacks MDRD (S/P/Bld) [Vol rate/Area] 61 mL/min/{1.73_m2} ml/min/1.73sq .m [facility] GFR/1.73 sq M.predicted among non-blacks MDRD (S/P/Bld) [Vol rate/Area] 51 mL/min/{1.73_m2} ml/min/1.73sq .m [facility] Glucose post fast [Mass/Vol] 94 mg/dL [facility] Lipase [Catalytic activity/Vol] 43 U/L 23 - 300 U/L [facility] Potassium [Moles/Vol] 4.5 mmol/L [facility] Protein [Mass/Vol] 6.1 g/dL Low [facility] Sodium [Moles/Vol] 134 mmol/L Low [facility] Urea nitrogen [Mass/Vol] 12 mg/dL [facility] Laboratory - Hematology and Cell countson 01-31-2024 Basophils/100 WBC (Bld) 1.4 % 0.0 - 2.0 % [facility] Differential cell count method Nom (Bld) AUTO DIFF % [facility] Eosinophils (Bld) [#/Vol] 0.2 10*3/uL 0.0 - 0.7 10*3/uL [facility] Eosinophils/100 WBC (Bld) 3.6 % 0.0 - 11.0 % [facility] Erythrocyte distribution width (RBC) [Ratio] 14.9 % High 11.5 - 14.5 % [facility] Hematocrit (Bld) [Volume fraction] 29.3 % Low 36.0 - 48.0 % [facility] Hemoglobin (Bld) [Mass/Vol] 10.0 g/dL Low [facility] Lymphocytes (Bld) [#/Vol] 1.5 10*3/uL 1.2 - 3.4 10*3/uL [facility] Lymphocytes/100 WBC (Bld) 28.8 % 20.0 - 55.0 % [facility] MCH (RBC) [Entitic mass] 32.5 pg 26.0 - 35.0 PG [facility] MCHC (RBC) [Mass/Vol] 34.1 g/dL [facility] MCV (RBC) [Entitic vol] 95.2 fL [facility] Monocytes (Bld) [#/Vol] 0.8 10*3/uL High 0.0 - 0.7 10*3/uL [facility] Monocytes/100 WBC (Bld) 16.5 % High 0.0 - 10.0 % [facility] Neutrophils (Bld) [#/Vol] 2.5 10*3/uL 1.4 - 6.5 10*3/uL [facility] Neutrophils/100 WBC (Bld) 49.7 % 37.0 - 75.0 % [facility] Platelet mean volume (Bld) [Entitic vol] 6.3 fL Low [facility] Platelets (Bld) [#/Vol] 439 10*3/uL High 130 - 400 10*3/uL [facility] RBC (Bld) [#/Vol] 3.08 10*6/uL Low 4.0 - 5.4 10*6/uL [facility] WBC (Bld) [#/Vol] 5.1 10*3/uL 3.6 - 11.0 10*3/uL [facility] No Panel Informationon 01-30 Interpretation and review of laboratory results Abnormal [facility] GFR COMMENT Average GFR for 70+ years old = 75. [facility] Interpretation and review of laboratory results Abnormal [facility] ABSOLUTE BASOPHIL COUNT 0.1 10*3/uL 0.0 - 0.2 10*3/uL [facility] Interpretation and review of laboratory results Abnormal [facility] PREALBUMINon 01-31-2024 Prealbumin [Mass/Vol] 11.9 mg/dL Low 17.6-36.0 [facility] BMP FASTINGon 01-30-2024 Anion gap [Moles/Vol] 3 mmol/L Low 8-16 [facility] Calcium [Mass/Vol] 8.6 mg/dL Normal 8.4-10.2 [facility] Chloride [Moles/Vol] 101 mmol/L Normal 98-107 [facility] Comment on above: Result Comment: Shonda matthews note: Triglyceride levels of 600mg/dL or higher may positively bias chloride results by approximately 2.1 mmol CO2 [Moles/Vol] 31 mmol/L High 22-30 [facility] Creatinine [Mass/Vol] 1.00 mg/dL Normal 0.7-1.2 [facility] EST. GFR, 68 ml/min/1.73sq.m [facility] EST. GFR,Non 57 ml/min/1.73sq.m [facility] GFR Information Average GFR for 70+ years old = 75. Normal [facility] Comment on above: Result Comment: Director Of [employer]gr[employer] aviva Kidney disease, GFR = <60. Kidney failure, GFR = <15. The GFR estimate is not adjusted for extreme body surface area or acute process, nor has it been validated for women or ethnic groups other than and . Glucose [Mass/Vol] 93 mg/dL Normal 70-100 [facility] Comment on above: Result Comment: NORMAL <100 mg/dL PREDIABETES 101-126 mg/dL DIABETES 126 mg/dL or higher Potassium [Moles/Vol] 4.4 mmol/L Normal 3.5-5.1 [facility] Sodium [Moles/Vol] 135 mmol/L Low 137-145 [facility] Urea nitrogen [Mass/Vol] 10 mg/dL Normal 7-20 [facility] C REACTIVE PROTEINon 024 CRP [Mass/Vol] 25.8 mg/L High 0-10 [facility] CBCon 01-30-2024 ABSOLUTE BAS 0.1 10*3/uL Normal 0.0-0.2 [facility] ABSOLUTE EOS 0.2 10*3/uL Normal 0.0-0.7 [facility] ABSOLUTE NEUTROPHIL COUNT 2.9 10*3/uL Normal 1.4-6.5 [facility] Basophils/100 WBC (Bld) 1.2 % Normal 0.0-2.0 [facility] DTYPE AUTO DIFF Normal [facility] Eosinophils/100 WBC (Bld) 3.0 % Normal 0.0-11.0 [facility] Lymphocytes (Bld) [#/Vol] 1.4 10*3/uL Normal 1.2-3.4 [facility] Lymphocytes/100 WBC (Bld) 26.1 % Normal 20.0-55.0 [facility] Monocytes (Bld) [#/Vol] 0.8 10*3/uL High 0.0-0.7 [facility] Monocytes/100 WBC (Bld) 15.2 % High 0.0-10.0 [facility] Neutrophils/100 WBC (Bld) 54.5 % Normal 37.0-75.0 [facility] Erythrocyte distribution width (RBC) [Ratio] 15.0 % High 11.5-14.5 [facility] Hematocrit (Bld) [Volume fraction] 29.9 % Low 36.0-48.0 [facility] Hemoglobin (Bld) [Mass/Vol] 10.3 g/dL Low 12.0-16.0 [facility] MCH (RBC) [Entitic mass] 32.9 pg Normal 26.0-35.0 [facility] MCHC (RBC) [Mass/Vol] 34.4 g/dL Normal 27.0-37.0 [facility] MCV (RBC) [Entitic vol] 95.6 fL Normal 80.0-100.0 [facility] Platelet mean volume (Bld) [Entitic vol] 6.3 fL Low 7.4-11.0 [facility] Platelets (Bld) [#/Vol] 466 10*3/uL High 130-400 [facility] RBC (Bld) [#/Vol] 3.12 10*6/uL Low 4.0-5.4 [facility] WBC (Bld) [#/Vol] 5.3 10*3/uL Normal 3.6-11.0 [facility] Laboratory - Chemistry and C hemistry - challengeon 01-30-2024 Anion gap [Moles/Vol] 3 mmol/L Low [facility] Calcium [Mass/Vol] 8.6 mg/dL [facility] Chloride [Moles/Vol] 101 mmol/L [facility] CO2 [Moles/Vol] 31 mmol/L High [facility] Creatinine [Mass/Vol] 1.00 mg/dL [facility] CRP [Mass/Vol] 25.8 mg/L High 0 - 10 MG/L [facility] GFR/1.73 sq M.predicted among blacks MDRD (S/P/Bld) [Vol rate/Area] 68 mL/min/{1.73_m2} ml/min/1.73sq .m [facility] GFR/1.73 sq M.predicted among non-blacks MDRD (S/P/Bld) [Vol rate/Area] 57 mL/min/{1.73_m2} ml/min/1.73sq .m [facility] Glucose post fast [Mass/Vol] 93 mg/dL [facility] Potassium [Moles/Vol] 4.4 mmol/L [facility] Sodium [Moles/Vol] 135 mmol/L Low [facility] Urea nitrogen [Mass/Vol] 10 mg/dL [facility] Laboratory - Hematology and Cell countson 01-30-2024 Basophils/100 WBC (Bld) 1.2 % 0.0 - 2.0 % [facility] Differential cell count method Nom (Bld) AUTO DIFF % [facility] Eosinophils (Bld) [#/Vol] 0.2 10*3/uL 0.0 - 0.7 10*3/uL [facility] Eosinophils/100 WBC (Bld) 3.0 % 0.0 - 11.0 % [facility] Erythrocyte distribution width (RBC) [Ratio] 15.0 % High 11.5 - 14.5 % [facility] Hematocrit (Bld) [Volume fraction] 29.9 % Low 36.0 - 48.0 % [facility] Hemoglobin (Bld) [Mass/Vol] 10.3 g/dL Low [facility] Lymphocytes (Bld) [#/Vol] 1.4 10*3/uL 1.2 - 3.4 10*3/uL [facility] Lymphocytes/100 WBC (Bld) 26.1 % 20.0 - 55.0 % [facility] MCH (RBC) [Entitic mass] 32.9 pg 26.0 - 35.0 PG [facility] MCHC (RBC) [Mass/Vol] 34.4 g/dL [facility] MCV (RBC) [Entitic vol] 95.6 fL [facility] Monocytes (Bld) [#/Vol] 0.8 10*3/uL High 0.0 - 0.7 10*3/uL [facility] Monocytes/100 WBC (Bld) 15.2 % High 0.0 - 10.0 % [facility] Neutrophils (Bld) [#/Vol] 2.9 10*3/uL 1.4 - 6.5 10*3/uL [facility] Neutrophils/100 WBC (Bld) 54.5 % 37.0 - 75.0 % [facility] Platelet mean volume (Bld) [Entitic vol] 6.3 fL Low [facility] Platelets (Bld) [#/Vol] 466 10*3/uL High 130 - 400 10*3/uL [facility] RBC (Bld) [#/Vol] 3.12 10*6/uL Low 4.0 - 5.4 10*6/uL [facility] WBC (Bld) [#/Vol] 5.3 10*3/uL 3.6 - 11.0 10*3/uL [facility] No Panel Informationon 01-29 GFR COMMENT Average GFR for 70+ years old = 75. [facility] Interpretation and review of laboratory results Abnormal [facility] ABSOLUTE BASOPHIL COUNT 0.1 10*3/uL 0.0 - 0.2 10*3/uL [facility] Interpretation and review of laboratory results Abnormal [facility] BMP FASTINGon 01-29-2024 Anion gap [Moles/Vol] 3 mmol/L Low 8-16 [facility] Calcium [Mass/Vol] 8.3 mg/dL Low 8.4-10.2 [facility] Chloride [Moles/Vol] 101 mmol/L Normal 98-107 [facility] Comment on above: Result Comment: Shonda matthews note: Triglyceride levels of 600mg/dL or higher may positively bias chloride results by approximately 2.1 mmol CO2 [Moles/Vol] 30 mmol/L Normal 22-30 [facility] Creatinine [Mass/Vol] 0.80 mg/dL Normal 0.7-1.2 [facility] EST. GFR, 89 ml/min/1.73sq.m [facility] EST. GFR,Non 73 ml/min/1.73sq.m [facility] GFR Information Average GFR for 70+ years old = 75. Normal [facility] Comment on above: Result Comment: Director Of [employer] aviva Kidney disease, GFR = <60. Kidney failure, GFR = <15. The GFR estimate is not adjusted for extreme body surface area or acute process, nor has it been validated for women or ethnic groups other than and . Glucose [Mass/Vol] 94 mg/dL Normal 70-100 [facility] Comment on above: Result Comment: NORMAL <100 mg/dL PREDIABETES 101-126 mg/dL DIABETES 126 mg/dL or higher Potassium [Moles/Vol] 4.2 mmol/L Normal 3.5-5.1 [facility] Sodium [Moles/Vol] 134 mmol/L Low 137-145 [facility] Urea nitrogen [Mass/Vol] 9 mg/dL Normal 7-20 [facility] C REACTIVE PROTEINon 024 CRP [Mass/Vol] 28.9 mg/L High 0-10 [facility] CBCon 01-29-2024 ABSOLUTE BAS 0.1 10*3/uL Normal 0.0-0.2 [facility] ABSOLUTE EOS 0.2 10*3/uL Normal 0.0-0.7 [facility] ABSOLUTE NEUTROPHIL COUNT 2.6 10*3/uL Normal 1.4-6.5 [facility] Basophils/100 WBC (Bld) 1.1 % Normal 0.0-2.0 [facility] DTYPE AUTO DIFF Normal [facility] Eosinophils/100 WBC (Bld) 4.1 % Normal 0.0-11.0 [facility] Lymphocytes (Bld) [#/Vol] 1.3 10*3/uL Normal 1.2-3.4 [facility] Lymphocytes/100 WBC (Bld) 26.6 % Normal 20.0-55.0 [facility] Monocytes (Bld) [#/Vol] 0.7 10*3/uL Normal 0.0-0.7 [facility] Monocytes/100 WBC (Bld) 13.9 % High 0.0-10.0 [facility] Neutrophils/100 WBC (Bld) 54.3 % Normal 37.0-75.0 [facility] Erythrocyte distribution width (RBC) [Ratio] 14.7 % High 11.5-14.5 [facility] Hematocrit (Bld) [Volume fraction] 29.3 % Low 36.0-48.0 [facility] Hemoglobin (Bld) [Mass/Vol] 10.0 g/dL Low 12.0-16.0 [facility] MCH (RBC) [Entitic mass] 32.7 pg Normal 26.0-35.0 [facility] MCHC (RBC) [Mass/Vol] 34.3 g/dL Normal 27.0-37.0 [facility] MCV (RBC) [Entitic vol] 95.2 fL Normal 80.0-100.0 [facility] Platelet mean volume (Bld) [Entitic vol] 6.4 fL Low 7.4-11.0 [facility] Platelets (Bld) [#/Vol] 438 10*3/uL High 130-400 [facility] RBC (Bld) [#/Vol] 3.07 10*6/uL Low 4.0-5.4 [facility] WBC (Bld) [#/Vol] 4.7 10*3/uL Normal 3.6-11.0 [facility] Laboratory - Chemistry and C hemistry - challengeon 01-29-2024 Anion gap [Moles/Vol] 3 mmol/L Low [facility] Calcium [Mass/Vol] 8.3 mg/dL Low [facility] Chloride [Moles/Vol] 101 mmol/L [facility] CO2 [Moles/Vol] 30 mmol/L [facility] Creatinine [Mass/Vol] 0.80 mg/dL [facility] CRP [Mass/Vol] 28.9 mg/L High 0 - 10 MG/L [facility] GFR/1.73 sq M.predicted among blacks MDRD (S/P/Bld) [Vol rate/Area] 89 mL/min/{1.73_m2} ml/min/1.73sq .m [facility] GFR/1.73 sq M.predicted among non-blacks MDRD (S/P/Bld) [Vol rate/Area] 73 mL/min/{1.73_m2} ml/min/1.73sq .m [facility] Glucose post fast [Mass/Vol] 94 mg/dL [facility] Potassium [Moles/Vol] 4.2 mmol/L [facility] Sodium [Moles/Vol] 134 mmol/L Low [facility] Urea nitrogen [Mass/Vol] 9 mg/dL [facility] - Hematology and Cell countson 01-29-2024 Basophils/100 WBC (Bld) 1.1 % 0.0 - 2.0 % [facility] Differential cell count method Nom (Bld) AUTO DIFF % [facility] Eosinophils (Bld) [#/Vol] 0.2 10*3/uL 0.0 - 0.7 10*3/uL [facility] Eosinophils/100 WBC (Bld) 4.1 % 0.0 - 11.0 % [facility] Erythrocyte distribution width (RBC) [Ratio] 14.7 % High 11.5 - 14.5 % [facility] Hematocrit (Bld) [Volume fraction] 29.3 % Low 36.0 - 48.0 % [facility] Hemoglobin (Bld) [Mass/Vol] 10.0 g/dL Low [facility] Lymphocytes (Bld) [#/Vol] 1.3 10*3/uL 1.2 - 3.4 10*3/uL [facility] Lymphocytes/100 WBC (Bld) 26.6 % 20.0 - 55.0 % [facility] MCH (RBC) [Entitic mass] 32.7 pg 26.0 - 35.0 PG [facility] MCHC (RBC) [Mass/Vol] 34.3 g/dL [facility] MCV (RBC) [Entitic vol] 95.2 fL [facility] Monocytes (Bld) [#/Vol] 0.7 10*3/uL 0.0 - 0.7 10*3/uL [facility] Monocytes/100 WBC (Bld) 13.9 % High 0.0 - 10.0 % [facility] Neutrophils (Bld) [#/Vol] 2.6 10*3/uL 1.4 - 6.5 10*3/uL [facility] Neutrophils/100 WBC (Bld) 54.3 % 37.0 - 75.0 % [facility] Platelet mean volume (Bld) [Entitic vol] 6.4 fL Low [facility] Platelets (Bld) [#/Vol] 438 10*3/uL High 130 - 400 10*3/uL [facility] RBC (Bld) [#/Vol] 3.07 10*6/uL Low 4.0 - 5.4 10*6/uL [facility] WBC (Bld) [#/Vol] 4.7 10*3/uL 3.6 - 11.0 10*3/uL [facility] No Panel Informationon 01-28 GFR COMMENT Average GFR for 70+ years old = 75. [facility] Interpretation and review of laboratory results Abnormal [facility] ABSOLUTE BASOPHIL COUNT 0.1 10*3/uL 0.0 - 0.2 10*3/uL [facility] Interpretation and review of laboratory results Abnormal [facility] BMP FASTINGon 01-28-2024 Anion gap [Moles/Vol] 3 mmol/L Low 8-16 [facility] Calcium [Mass/Vol] 8.8 mg/dL Normal 8.4-10.2 [facility] Chloride [Moles/Vol] 100 mmol/L Normal 98-107 [facility] Comment on above: Result Comment: Plebowen matthews note: Triglyceride levels of 600mg/dL or higher may positively bias chloride results by approximately 2.1 mmol CO2 [Moles/Vol] 33 mmol/L High 22-30 [facility] Creatinine [Mass/Vol] 0.80 mg/dL Normal 0.7-1.2 [facility] EST. GFR, 89 ml/min/1.73sq.m Normal [facility] EST. GFR,Non 73 ml/min/1.73sq.m Normal [facility] GFR Information Average GFR for 70+ years old = 75. Normal [facility] Comment on above: Result Comment: Director Of [employer] aviva Kidney disease, GFR = <60. Kidney failure, GFR = <15. The GFR estimate is not adjusted for extreme body surface area or acute process, nor has it been validated for women or ethnic groups other than and . Glucose [Mass/Vol] 86 mg/dL Normal 70-100 [facility] Comment on above: Result Comment: NORMAL <100 mg/dL PREDIABETES 101-126 mg/dL DIABETES 126 mg/dL or higher Potassium [Moles/Vol] 4.4 mmol/L Normal 3.5-5.1 [facility] Sodium [Moles/Vol] 136 mmol/L Low 137-145 [facility] Urea nitrogen [Mass/Vol] 11 mg/dL Normal 7-20 [facility] C REACTIVE PROTEINon 024 CRP [Mass/Vol] 30.5 mg/L High 0-10 [facility] CBCon 01-28-2024 ABSOLUTE BAS 0.1 10*3/uL Normal 0.0-0.2 [facility] ABSOLUTE EOS 0.2 10*3/uL Normal 0.0-0.7 [facility] ABSOLUTE NEUTROPHIL COUNT 3.0 10*3/uL Normal 1.4-6.5 [facility] Basophils/100 WBC (Bld) 1.1 % Normal 0.0-2.0 [facility] DTYPE AUTO DIFF Normal [facility] Eosinophils/100 WBC (Bld) 3.2 % Normal 0.0-11.0 [facility] Lymphocytes (Bld) [#/Vol] 1.3 10*3/uL Normal 1.2-3.4 [facility] Lymphocytes/100 WBC (Bld) 25.7 % Normal 20.0-55.0 [facility] Monocytes (Bld) [#/Vol] 0.6 10*3/uL Normal 0.0-0.7 [facility] Monocytes/100 WBC (Bld) 12.0 % High 0.0-10.0 [facility] Neutrophils/100 WBC (Bld) 58.0 % Normal 37.0-75.0 [facility] Erythrocyte distribution width (RBC) [Ratio] 14.6 % High 11.5-14.5 [facility] Hematocrit (Bld) [Volume fraction] 31.3 % Low 36.0-48.0 [facility] Hemoglobin (Bld) [Mass/Vol] 10.6 g/dL Low 12.0-16.0 [facility] MCH (RBC) [Entitic mass] 32.3 pg Normal 26.0-35.0 [facility] MCHC (RBC) [Mass/Vol] 34.0 g/dL Normal 27.0-37.0 [facility] MCV (RBC) [Entitic vol] 95.0 fL Normal 80.0-100.0 [facility] Platelet mean volume (Bld) [Entitic vol] 6.5 fL Low 7.4-11.0 [facility] Platelets (Bld) [#/Vol] 470 10*3/uL High 130-400 [facility] RBC (Bld) [#/Vol] 3.30 10*6/uL Low 4.0-5.4 [facility] WBC (Bld) [#/Vol] 5.1 10*3/uL Normal 3.6-11.0 [facility] Laboratory - Chemistry and C hemistry - challengeon 01-28-2024 Anion gap [Moles/Vol] 3 mmol/L Low [facility] Calcium [Mass/Vol] 8.8 mg/dL [facility] Chloride [Moles/Vol] 100 mmol/L [facility] CO2 [Moles/Vol] 33 mmol/L High [facility] Creatinine [Mass/Vol] 0.80 mg/dL [facility] CRP [Mass/Vol] 30.5 mg/L High 0 - 10 MG/L [facility] GFR/1.73 sq M.predicted among blacks MDRD (S/P/Bld) [Vol rate/Area] 89 mL/min/{1.73_m2} ml/min/1.73sq .m [facility] GFR/1.73 sq M.predicted among non-blacks MDRD (S/P/Bld) [Vol rate/Area] 73 mL/min/{1.73_m2} ml/min/1.73sq .m [facility] Glucose post fast [Mass/Vol] 86 mg/dL [facility] Potassium [Moles/Vol] 4.4 mmol/L [facility] Sodium [Moles/Vol] 136 mmol/L Low [facility] Urea nitrogen [Mass/Vol] 11 mg/dL [facility] Laboratory - Hematology and Cell countson 01-28-2024 Basophils/100 WBC (Bld) 1.1 % 0.0 - 2.0 % [facility] Differential cell count method Nom (Bld) AUTO DIFF % [facility] Eosinophils (Bld) [#/Vol] 0.2 10*3/uL 0.0 - 0.7 10*3/uL [facility] Eosinophils/100 WBC (Bld) 3.2 % 0.0 - 11.0 % [facility] Erythrocyte distribution width (RBC) [Ratio] 14.6 % High 11.5 - 14.5 % [facility] Hematocrit (Bld) [Volume fraction] 31.3 % Low 36.0 - 48.0 % [facility] Hemoglobin (Bld) [Mass/Vol] 10.6 g/dL Low [facility] Lymphocytes (Bld) [#/Vol] 1.3 10*3/uL 1.2 - 3.4 10*3/uL [facility] Lymphocytes/100 WBC (Bld) 25.7 % 20.0 - 55.0 % [facility] MCH (RBC) [Entitic mass] 32.3 pg 26.0 - 35.0 PG [facility] MCHC (RBC) [Mass/Vol] 34.0 g/dL [facility] MCV (RBC) [Entitic vol] 95.0 fL [facility] Monocytes (Bld) [#/Vol] 0.6 10*3/uL 0.0 - 0.7 10*3/uL [facility] Monocytes/100 WBC (Bld) 12.0 % High 0.0 - 10.0 % [facility] Neutrophils (Bld) [#/Vol] 3.0 10*3/uL 1.4 - 6.5 10*3/uL [facility] Neutrophils/100 WBC (Bld) 58.0 % 37.0 - 75.0 % [facility] Platelet mean volume (Bld) [Entitic vol] 6.5 fL Low [facility] Platelets (Bld) [#/Vol] 470 10*3/uL High 130 - 400 10*3/uL [facility] RBC (Bld) [#/Vol] 3.30 10*6/uL Low 4.0 - 5.4 10*6/uL [facility] WBC (Bld) [#/Vol] 5.1 10*3/uL 3.6 - 11.0 10*3/uL [facility] No Panel Informationon 01-27 GFR COMMENT Average GFR for 70+ years old = 75. [facility] Interpretation and review of laboratory results Abnormal [facility] ABSOLUTE BASOPHIL COUNT 0.1 10*3/uL 0.0 - 0.2 10*3/uL [facility] Interpretation and review of laboratory results Abnormal [facility] BMP FASTINGon 01-27-2024 Anion gap [Moles/Vol] 3 mmol/L Low 8-16 [facility] Calcium [Mass/Vol] 8.6 mg/dL Normal 8.4-10.2 [facility] Chloride [Moles/Vol] 102 mmol/L Normal 98-107 [facility] Comment on above: Result Comment: Shonda matthews note: Triglyceride levels of 600mg/dL or higher may positively bias chloride results by approximately 2.1 mmol CO2 [Moles/Vol] 30 mmol/L Normal 22-30 [facility] Creatinine [Mass/Vol] 0.70 mg/dL Normal 0.7-1.2 [facility] EST. GFR, 103 ml/min/1.73sq.m Normal [facility] EST. GFR,Non 85 ml/min/1.73sq.m [facility] GFR Information Average GFR for 70+ years old = 75. Normal [facility] Comment on above: Result Comment: Director Of [employer] aviva Kidney disease, GFR = <60. Kidney failure, GFR = <15. The GFR estimate is not adjusted for extreme body surface area or acute process, nor has it been validated for women or ethnic groups other than and . Glucose [Mass/Vol] 98 mg/dL Normal 70-100 [facility] Comment on above: Result Comment: NORMAL <100 mg/dL PREDIABETES 101-126 mg/dL DIABETES 126 mg/dL or higher Potassium [Moles/Vol] 4.0 mmol/L Normal 3.5-5.1 [facility] Sodium [Moles/Vol] 135 mmol/L Low 137-145 [facility] Urea nitrogen [Mass/Vol] 11 mg/dL Normal 7-20 [facility] C REACTIVE PROTEINon 024 CRP [Mass/Vol] 28.4 mg/L High 0-10 [facility] CBCon 01-27-2024 ABSOLUTE BAS 0.0 10*3/uL Normal 0.0-0.2 [facility] ABSOLUTE EOS 0.2 10*3/uL Normal 0.0-0.7 [facility] ABSOLUTE NEUTROPHIL COUNT 3.3 10*3/uL Normal 1.4-6.5 [facility] Basophils/100 WBC (Bld) 0.9 % Normal 0.0-2.0 [facility] DTYPE AUTO DIFF Normal [facility] Eosinophils/100 WBC (Bld) 3.3 % Normal 0.0-11.0 [facility] Lymphocytes (Bld) [#/Vol] 1.3 10*3/uL Normal 1.2-3.4 [facility] Lymphocytes/100 WBC (Bld) 23.9 % Normal 20.0-55.0 [facility] Monocytes (Bld) [#/Vol] 0.6 10*3/uL Normal 0.0-0.7 [facility] Monocytes/100 WBC (Bld) 11.0 % High 0.0-10.0 [facility] Neutrophils/100 WBC (Bld) 60.9 % Normal 37.0-75.0 [facility] Erythrocyte distribution width (RBC) [Ratio] 14.9 % High 11.5-14.5 [facility] Hematocrit (Bld) [Volume fraction] 30.7 % Low 36.0-48.0 [facility] Hemoglobin (Bld) [Mass/Vol] 10.3 g/dL Low 12.0-16.0 [facility] MCH (RBC) [Entitic mass] 32.2 pg Normal 26.0-35.0 [facility] MCHC (RBC) [Mass/Vol] 33.4 g/dL Normal 27.0-37.0 [facility] MCV (RBC) [Entitic vol] 96.3 fL Normal 80.0-100.0 [facility] Platelet mean volume (Bld) [Entitic vol] 6.6 fL Low 7.4-11.0 [facility] Platelets (Bld) [#/Vol] 438 10*3/uL High 130-400 [facility] RBC (Bld) [#/Vol] 3.19 10*6/uL Low 4.0-5.4 [facility] WBC (Bld) [#/Vol] 5.4 10*3/uL Normal 3.6-11.0 [facility] Laboratory - Chemistry and C hemistry - challengeon 01-27-2024 Anion gap [Moles/Vol] 3 mmol/L Low [facility] Calcium [Mass/Vol] 8.6 mg/dL [facility] Chloride [Moles/Vol] 102 mmol/L [facility] CO2 [Moles/Vol] 30 mmol/L [facility] Creatinine [Mass/Vol] 0.70 mg/dL [facility] CRP [Mass/Vol] 28.4 mg/L High 0 - 10 MG/L [facility] GFR/1.73 sq M.predicted among blacks MDRD (S/P/Bld) [Vol rate/Area] 103 mL/min/{1.73_m2} ml/min/1.73sq .m [facility] GFR/1.73 sq M.predicted among non-blacks MDRD (S/P/Bld) [Vol rate/Area] 85 mL/min/{1.73_m2} ml/min/1.73sq .m [facility] Glucose post fast [Mass/Vol] 98 mg/dL [facility] Potassium [Moles/Vol] 4.0 mmol/L [facility] Sodium [Moles/Vol] 135 mmol/L Low [facility] Urea nitrogen [Mass/Vol] 11 mg/dL [facility] Laboratory - Hematology and Cell countson 01-27-2024 Basophils/100 WBC (Bld) 0.9 % 0.0 - 2.0 % [facility] Differential cell count method Nom (Bld) AUTO DIFF % [facility] Eosinophils (Bld) [#/Vol] 0.2 10*3/uL 0.0 - 0.7 10*3/uL [facility] Eosinophils/100 WBC (Bld) 3.3 % 0.0 - 11.0 % [facility] Erythrocyte distribution width (RBC) [Ratio] 14.9 % High 11.5 - 14.5 % [facility] Hematocrit (Bld) [Volume fraction] 30.7 % Low 36.0 - 48.0 % [facility] Hemoglobin (Bld) [Mass/Vol] 10.3 g/dL Low [facility] Lymphocytes (Bld) [#/Vol] 1.3 10*3/uL 1.2 - 3.4 10*3/uL [facility] Lymphocytes/100 WBC (Bld) 23.9 % 20.0 - 55.0 % [facility] MCH (RBC) [Entitic mass] 32.2 pg 26.0 - 35.0 PG [facility] MCHC (RBC) [Mass/Vol] 33.4 g/dL [facility] MCV (RBC) [Entitic vol] 96.3 fL [facility] Monocytes (Bld) [#/Vol] 0.6 10*3/uL 0.0 - 0.7 10*3/uL [facility] Monocytes/100 WBC (Bld) 11.0 % High 0.0 - 10.0 % [facility] Neutrophils (Bld) [#/Vol] 3.3 10*3/uL 1.4 - 6.5 10*3/uL [facility] Neutrophils/100 WBC (Bld) 60.9 % 37.0 - 75.0 % [facility] Platelet mean volume (Bld) [Entitic vol] 6.6 fL Low [facility] Platelets (Bld) [#/Vol] 438 10*3/uL High 130 - 400 10*3/uL [facility] RBC (Bld) [#/Vol] 3.19 10*6/uL Low 4.0 - 5.4 10*6/uL [facility] WBC (Bld) [#/Vol] 5.4 10*3/uL 3.6 - 11.0 10*3/uL [facility] No Panel Informationon 01-26 GFR COMMENT Average GFR for 70+ years old = 75. [facility] Interpretation and review of laboratory results Abnormal [facility] ABSOLUTE BASOPHIL COUNT 0.0 10*3/uL 0.0 - 0.2 10*3/uL [facility] Interpretation and review of laboratory results Abnormal [facility] BMP FASTINGon 01-26-2024 Anion gap [Moles/Vol] 1 mmol/L Low 8-16 [facility] Calcium [Mass/Vol] 8.2 mg/dL Low 8.4-10.2 [facility] Chloride [Moles/Vol] 102 mmol/L Normal 98-107 [facility] Comment on above: Result Comment: Shonda matthews note: Triglyceride levels of 600mg/dL or higher may positively bias chloride results by approximately 2.1 mmol CO2 [Moles/Vol] 31 mmol/L High 22-30 [facility] Creatinine [Mass/Vol] 0.70 mg/dL Normal 0.7-1.2 [facility] EST. GFR, 103 ml/min/1.73sq.m Normal [facility] EST. GFR,Non 85 ml/min/1.73sq.m Normal [facility] GFR Information Average GFR for 70+ years old = 75. Normal [facility] Comment on above: Result Comment: Director Of Agronomy aviva Kidney disease, GFR = <60. Kidney failure, GFR = <15. The GFR estimate is not adjusted for extreme body surface area or acute process, nor has it been validated for women or ethnic groups other than and . Glucose [Mass/Vol] 109 mg/dL High 70-100 [facility] Comment on above: Result Comment: NORMAL <100 mg/dL PREDIABETES 101-126 mg/dL DIABETES 126 mg/dL or higher Potassium [Moles/Vol] 3.9 mmol/L Normal 3.5-5.1 [facility] Sodium [Moles/Vol] 134 mmol/L Low 137-145 [facility] Urea nitrogen [Mass/Vol] 12 mg/dL Normal 7-20 [facility] C REACTIVE PROTEINon 024 CRP [Mass/Vol] 28.4 mg/L High 0-10 [facility] CBCon 01-26-2024 ABSOLUTE BAS 0.0 10*3/uL Normal 0.0-0.2 [facility] ABSOLUTE EOS 0.2 10*3/uL Normal 0.0-0.7 [facility] ABSOLUTE NEUTROPHIL COUNT 3.7 10*3/uL Normal 1.4-6.5 [facility] Basophils/100 WBC (Bld) 0.9 % Normal 0.0-2.0 [facility] DTYPE AUTO DIFF Normal [facility] Eosinophils/100 WBC (Bld) 2.8 % Normal 0.0-11.0 [facility] Lymphocytes (Bld) [#/Vol] 1.2 10*3/uL Normal 1.2-3.4 [facility] Lymphocytes/100 WBC (Bld) 21.0 % Normal 20.0-55.0 [facility] Monocytes (Bld) [#/Vol] 0.7 10*3/uL Normal 0.0-0.7 [facility] Monocytes/100 WBC (Bld) 11.6 % High 0.0-10.0 [facility] Neutrophils/100 WBC (Bld) 63.7 % Normal 37.0-75.0 [facility] Erythrocyte distribution width (RBC) [Ratio] 14.6 % High 11.5-14.5 [facility] Hematocrit (Bld) [Volume fraction] 29.0 % Low 36.0-48.0 [facility] Hemoglobin (Bld) [Mass/Vol] 9.8 g/dL Low 12.0-16.0 [facility] MCH (RBC) [Entitic mass] 32.0 pg Normal 26.0-35.0 [facility] MCHC (RBC) [Mass/Vol] 33.6 g/dL Normal 27.0-37.0 [facility] MCV (RBC) [Entitic vol] 95.3 fL Normal 80.0-100.0 [facility] Platelet mean volume (Bld) [Entitic vol] 6.7 fL Low 7.4-11.0 [facility] Platelets (Bld) [#/Vol] 440 10*3/uL High 130-400 [facility] RBC (Bld) [#/Vol] 3.05 10*6/uL Low 4.0-5.4 [facility] WBC (Bld) [#/Vol] 5.9 10*3/uL Normal 3.6-11.0 [facility] Laboratory - Chemistry and C hemistry - challengeon 01-26-2024 Anion gap [Moles/Vol] 1 mmol/L Low [facility] Calcium [Mass/Vol] 8.2 mg/dL Low [facility] Chloride [Moles/Vol] 102 mmol/L [facility] CO2 [Moles/Vol] 31 mmol/L High [facility] Creatinine [Mass/Vol] 0.70 mg/dL [facility] CRP [Mass/Vol] 28.4 mg/L High 0 - 10 MG/L [facility] GFR/1.73 sq M.predicted among blacks MDRD (S/P/Bld) [Vol rate/Area] 103 mL/min/{1.73_m2} ml/min/1.73sq .m [facility] GFR/1.73 sq M.predicted among non-blacks MDRD (S/P/Bld) [Vol rate/Area] 85 mL/min/{1.73_m2} ml/min/1.73sq .m [facility] Glucose post fast [Mass/Vol] 109 mg/dL High [facility] Potassium [Moles/Vol] 3.9 mmol/L [facility] Sodium [Moles/Vol] 134 mmol/L Low [facility] Urea nitrogen [Mass/Vol] 12 mg/dL [facility] Laboratory - Hematology and Cell countson 01-26-2024 Basophils/100 WBC (Bld) 0.9 % 0.0 - 2.0 % [facility] Differential cell count method Nom (Bld) AUTO DIFF % [facility] Eosinophils (Bld) [#/Vol] 0.2 10*3/uL 0.0 - 0.7 10*3/uL [facility] Eosinophils/100 WBC (Bld) 2.8 % 0.0 - 11.0 % [facility] Erythrocyte distribution width (RBC) [Ratio] 14.6 % High 11.5 - 14.5 % [facility] Hematocrit (Bld) [Volume fraction] 29.0 % Low 36.0 - 48.0 % [facility] Hemoglobin (Bld) [Mass/Vol] 9.8 g/dL Low [facility] Lymphocytes (Bld) [#/Vol] 1.2 10*3/uL 1.2 - 3.4 10*3/uL [facility] Lymphocytes/100 WBC (Bld) 21.0 % 20.0 - 55.0 % [facility] MCH (RBC) [Entitic mass] 32.0 pg 26.0 - 35.0 PG [facility] MCHC (RBC) [Mass/Vol] 33.6 g/dL [facility] MCV (RBC) [Entitic vol] 95.3 fL [facility] Monocytes (Bld) [#/Vol] 0.7 10*3/uL 0.0 - 0.7 10*3/uL [facility] Monocytes/100 WBC (Bld) 11.6 % High 0.0 - 10.0 % [facility] Neutrophils (Bld) [#/Vol] 3.7 10*3/uL 1.4 - 6.5 10*3/uL [facility] Neutrophils/100 WBC (Bld) 63.7 % 37.0 - 75.0 % [facility] Platelet mean volume (Bld) [Entitic vol] 6.7 fL Low [facility] Platelets (Bld) [#/Vol] 440 10*3/uL High 130 - 400 10*3/uL [facility] RBC (Bld) [#/Vol] 3.05 10*6/uL Low 4.0 - 5.4 10*6/uL [facility] WBC (Bld) [#/Vol] 5.9 10*3/uL 3.6 - 11.0 10*3/uL [facility] No Panel Informationon 01-25 GFR COMMENT Average GFR for 70+ years old = 75. [facility] Interpretation and review of laboratory results Abnormal [facility] ABSOLUTE BASOPHIL COUNT 0.0 10*3/uL 0.0 - 0.2 10*3/uL [facility] Interpretation and review of laboratory results Abnormal [facility] BMP FASTINGon 01-25-2024 Anion gap [Moles/Vol] 3 mmol/L Low 8-16 [facility] Calcium [Mass/Vol] 8.3 mg/dL Low 8.4-10.2 [facility] Chloride [Moles/Vol] 101 mmol/L Normal 98-107 [facility] Comment on above: Result Comment: Shonda matthews note: Triglyceride levels of 600mg/dL or higher may positively bias chloride results by approximately 2.1 mmol CO2 [Moles/Vol] 32 mmol/L High 22-30 [facility] Creatinine [Mass/Vol] 0.70 mg/dL Normal 0.7-1.2 [facility] EST. GFR, 103 ml/min/1.73sq.m Normal [facility] EST. GFR,Non 85 ml/min/1.73sq.m Normal [facility] GFR Information Average GFR for 70+ years old = 75. Normal [facility] Comment on above: Result Comment: Director Of [employer]gr[employer] aviva Kidney disease, GFR = <60. Kidney failure, GFR = <15. The GFR estimate is not adjusted for extreme body surface area or acute process, nor has it been validated for women or ethnic groups other than and . Glucose [Mass/Vol] 92 mg/dL Normal 70-100 [facility] Comment on above: Result Comment: NORMAL <100 mg/dL PREDIABETES 101-126 mg/dL DIABETES 126 mg/dL or higher Potassium [Moles/Vol] 3.8 mmol/L Normal 3.5-5.1 [facility] Sodium [Moles/Vol] 136 mmol/L Low 137-145 [facility] Urea nitrogen [Mass/Vol] 6 mg/dL Low 7-20 [facility] C REACTIVE PROTEINon 024 CRP [Mass/Vol] 33.6 mg/L High 0-10 [facility] CBCon 01-25-2024 ABSOLUTE BAS 0.0 10*3/uL Normal 0.0-0.2 [facility] ABSOLUTE EOS 0.2 10*3/uL Normal 0.0-0.7 [facility] ABSOLUTE NEUTROPHIL COUNT 3.7 10*3/uL Normal 1.4-6.5 [facility] Basophils/100 WBC (Bld) 0.7 % Normal 0.0-2.0 [facility] DTYPE AUTO DIFF Normal [facility] Eosinophils/100 WBC (Bld) 2.6 % Normal 0.0-11.0 [facility] Lymphocytes (Bld) [#/Vol] 1.2 10*3/uL Normal 1.2-3.4 [facility] Lymphocytes/100 WBC (Bld) 21.6 % Normal 20.0-55.0 [facility] Monocytes (Bld) [#/Vol] 0.6 10*3/uL Normal 0.0-0.7 [facility] Monocytes/100 WBC (Bld) 11.3 % High 0.0-10.0 [facility] Neutrophils/100 WBC (Bld) 63.8 % Normal 37.0-75.0 [facility] Erythrocyte distribution width (RBC) [Ratio] 14.4 % Normal 11.5-14.5 [facility] Hematocrit (Bld) [Volume fraction] 29.4 % Low 36.0-48.0 [facility] Hemoglobin (Bld) [Mass/Vol] 10.1 g/dL Low 12.0-16.0 [facility] MCH (RBC) [Entitic mass] 32.5 pg Normal 26.0-35.0 [facility] MCHC (RBC) [Mass/Vol] 34.3 g/dL Normal 27.0-37.0 [facility] MCV (RBC) [Entitic vol] 94.8 fL Normal 80.0-100.0 [facility] Platelet mean volume (Bld) [Entitic vol] 6.7 fL Low 7.4-11.0 [facility] Platelets (Bld) [#/Vol] 440 10*3/uL High 130-400 [facility] RBC (Bld) [#/Vol] 3.10 10*6/uL Low 4.0-5.4 [facility] WBC (Bld) [#/Vol] 5.7 10*3/uL Normal 3.6-11.0 [facility] Laboratory - Chemistry and C hemistry - challengeon 01-25-2024 Anion gap [Moles/Vol] 3 mmol/L Low [facility] Calcium [Mass/Vol] 8.3 mg/dL Low [facility] Chloride [Moles/Vol] 101 mmol/L [facility] CO2 [Moles/Vol] 32 mmol/L High [facility] Creatinine [Mass/Vol] 0.70 mg/dL [facility] CRP [Mass/Vol] 33.6 mg/L High 0 - 10 MG/L [facility] GFR/1.73 sq M.predicted among blacks MDRD (S/P/Bld) [Vol rate/Area] 103 mL/min/{1.73_m2} ml/min/1.73sq .m [facility] GFR/1.73 sq M.predicted among non-blacks MDRD (S/P/Bld) [Vol rate/Area] 85 mL/min/{1.73_m2} ml/min/1.73sq .m [facility] Glucose post fast [Mass/Vol] 92 mg/dL [facility] Potassium [Moles/Vol] 3.8 mmol/L [facility] Sodium [Moles/Vol] 136 mmol/L Low [facility] Urea nitrogen [Mass/Vol] 6 mg/dL [facility] Laboratory - Hematology and Cell countson 01-25-2024 Basophils/100 WBC (Bld) 0.7 % 0.0 - 2.0 % [facility] Differential cell count method Nom (Bld) AUTO DIFF % [facility] Eosinophils (Bld) [#/Vol] 0.2 10*3/uL 0.0 - 0.7 10*3/uL [facility] Eosinophils/100 WBC (Bld) 2.6 % 0.0 - 11.0 % [facility] Erythrocyte distribution width (RBC) [Ratio] 14.4 % 11.5 - 14.5 % [facility] Hematocrit (Bld) [Volume fraction] 29.4 % Low 36.0 - 48.0 % [facility] Hemoglobin (Bld) [Mass/Vol] 10.1 g/dL [facility] Lymphocytes (Bld) [#/Vol] 1.2 10*3/uL 1.2 - 3.4 10*3/uL [facility] Lymphocytes/100 WBC (Bld) 21.6 % 20.0 - 55.0 % [facility] MCH (RBC) [Entitic mass] 32.5 pg 26.0 - 35.0 PG [facility] MCHC (RBC) [Mass/Vol] 34.3 g/dL [facility] MCV (RBC) [Entitic vol] 94.8 fL [facility] Monocytes (Bld) [#/Vol] 0.6 10*3/uL 0.0 - 0.7 10*3/uL [facility] Monocytes/100 WBC (Bld) 11.3 % High 0.0 - 10.0 % [facility] Neutrophils (Bld) [#/Vol] 3.7 10*3/uL 1.4 - 6.5 10*3/uL [facility] Neutrophils/100 WBC (Bld) 63.8 % 37.0 - 75.0 % [facility] Platelet mean volume (Bld) [Entitic vol] 6.7 fL Low [facility] Platelets (Bld) [#/Vol] 440 10*3/uL High 130 - 400 10*3/uL [facility] RBC (Bld) [#/Vol] 3.10 10*6/uL Low 4.0 - 5.4 10*6/uL [facility] WBC (Bld) [#/Vol] 5.7 10*3/uL 3.6 - 11.0 10*3/uL [facility] No Panel Informationon 01-24 GFR COMMENT Average GFR for 70+ years old = 75. [facility] Interpretation and review of laboratory results Abnormal [facility] ABSOLUTE BASOPHIL COUNT 0.0 10*3/uL 0.0 - 0.2 10*3/uL [facility] Interpretation and review of laboratory results Abnormal [facility] BMP FASTINGon 01-24-2024 Anion gap [Moles/Vol] 2 mmol/L Low 8-16 [facility] Calcium [Mass/Vol] 8.5 mg/dL Normal 8.4-10.2 [facility] Chloride [Moles/Vol] 102 mmol/L Normal 98-107 [facility] Comment on above: Result Comment: Shonda matthews note: Triglyceride levels of 600mg/dL or higher may positively bias chloride results by approximately 2.1 mmol CO2 [Moles/Vol] 31 mmol/L High 22-30 [facility] Creatinine [Mass/Vol] 0.70 mg/dL Normal 0.7-1.2 [facility] EST. GFR, 103 ml/min/1.73sq.m Normal [facility] EST. GFR,Non 85 ml/min/1.73sq.m Normal [facility] GFR Information Average GFR for 70+ years old = 75. Normal [facility] Comment on above: Result Comment: Director Of [employer]gr[employer] aviva Kidney disease, GFR = <60. Kidney failure, GFR = <15. The GFR estimate is not adjusted for extreme body surface area or acute process, nor has it been validated for women or ethnic groups other than and . Glucose [Mass/Vol] 104 mg/dL High 70-100 [facility] Comment on above: Result Comment: NORMAL <100 mg/dL PREDIABETES 101-126 mg/dL DIABETES 126 mg/dL or higher Potassium [Moles/Vol] 3.5 mmol/L Normal 3.5-5.1 [facility] Sodium [Moles/Vol] 135 mmol/L Low 137-145 [facility] Urea nitrogen [Mass/Vol] 8 mg/dL Normal 7-20 [facility] C DIFFICILE DNAon 01-24-2024 C. DIFF 027 Negative Normal NEGATIVE [facility] Comment on above: Result Comment: Hype rvirulent C. difficile strain 027/NAP1/BI TESTING PERFORMED BY PCR Performed By: #### G IPAN ####[place] [address] TOXIGENIC C. DIFF Negative Normal NEGATIVE [facility] Comment on above: Performed By: #### G IPAN ####Testing performed at [place] [id number] C REACTIVE PROTEINon 024 CRP [Mass/Vol] 46.5 mg/L High 0-10 [facility] CBCon 01-24-2024 ABSOLUTE BAS 0.0 10*3/uL Normal 0.0-0.2 [facility] ABSOLUTE EOS 0.1 10*3/uL Normal 0.0-0.7 [facility] ABSOLUTE NEUTROPHIL COUNT 4.2 10*3/uL Normal 1.4-6.5 [facility] Basophils/100 WBC (Bld) 0.7 % Normal 0.0-2.0 [facility] DTYPE AUTO DIFF Normal [facility] Eosinophils/100 WBC (Bld) 2.2 % Normal 0.0-11.0 [facility] Lymphocytes (Bld) [#/Vol] 1.2 10*3/uL Normal 1.2-3.4 [facility] Lymphocytes/100 WBC (Bld) 19.3 % Low 20.0-55.0 [facility] Monocytes (Bld) [#/Vol] 0.7 10*3/uL Normal 0.0-0.7 [facility] Monocytes/100 WBC (Bld) 10.6 % High 0.0-10.0 [facility] Neutrophils/100 WBC (Bld) 67.2 % Normal 37.0-75.0 [facility] Erythrocyte distribution width (RBC) [Ratio] 14.5 % Normal 11.5-14.5 [facility] Hematocrit (Bld) [Volume fraction] 29.3 % Low 36.0-48.0 [facility] Hemoglobin (Bld) [Mass/Vol] 10.1 g/dL Low 12.0-16.0 [facility] MCH (RBC) [Entitic mass] 32.7 pg Normal 26.0-35.0 [facility] MCHC (RBC) [Mass/Vol] 34.4 g/dL Normal 27.0-37.0 [facility] MCV (RBC) [Entitic vol] 95.1 fL Normal 80.0-100.0 [facility] Platelet mean volume (Bld) [Entitic vol] 6.8 fL Low 7.4-11.0 [facility] Platelets (Bld) [#/Vol] 424 10*3/uL High 130-400 [facility] RBC (Bld) [#/Vol] 3.08 10*6/uL Low 4.0-5.4 [facility] WBC (Bld) [#/Vol] 6.2 10*3/uL Normal 3.6-11.0 [facility] GI PANELon 01-24-2024 ADENOVIRUS F 40/41 Not detected Normal NOT DETECTED [facility] Comment on above: Result Comment: Mandi baugh: Nucleic acid may persist in vivo independently of organism viability. Additionally, some organisms may be carried asymptomatically. Detection of target organisms does not imply that the corresponding organisms are infectious or are the causative agent of clinical symptoms. Results must be correlated with clinical history, epidemiological data and other clinical information available. Testing performed at [place] [id number] Performed By: #### G IPAN ####[place] [address] ASTROVIRUS Not detected Normal NOT DETECTED [facility] Comment on above: Performed By: #### G IPAN ####[place] [address] CAMPYLOBACTER Not detected Normal NOT DETECTED [facility] Comment on above: Performed By: #### G IPAN ####[place] [address] CRYPTOSPORIDIUM Not detected Normal NOT DETECTED [facility] Comment on above: Performed By: #### G IPAN ####[place] [address] CYCLOSPORA CAYETANENSIS Not detected Normal NOT DETECTED [facility] Comment on above: Performed By: #### G IPAN ####[place] [address] ENTAMOEBA HISTOLYTICA Not detected Normal NOT DETECTED [facility] Comment on above: Performed By: #### G IPAN ####[place] [address] ENTEROAGGREGATIVE E COLI Not detected Normal NOT DETECTED [facility] Comment on above: Performed By: #### G IPAN ####[place] [address] ENTEROTOXIGENIC E COLI Not detected Normal NOT DETECTED [facility] Comment on above: Performed By: #### G IPAN ####Testing performed at [place] [id number] ENTROPATHOGENIC E COLI Not detected Normal NOT DETECTED [facility] Comment on above: Performed By: #### G IPAN ####Testing performed at [address] [address] GIARDIA LAMBLIA Not detected Normal NOT DETECTED [facility] Comment on above: Performed By: #### G IPAN ####[place] [address] NOROVIRUS GI/GII Not detected Normal NOT DETECTED [facility] Comment on above: Performed By: #### G IPAN ####[place] [address] PLESIOMONAS SHIGELLOIDES Not detected Normal NOT DETECTED [facility] Comment on above: Performed By: #### G IPAN ####[place] [address] ROTAVIRUS A Not detected Normal NOT DETECTED [facility] Comment on above: Performed By: #### G IPAN ####Testing performed at [address], [place] [address] SALMONELLA Not detected Normal NOT DETECTED [facility] Comment on above: Performed By: #### G IPAN ####[place] [address] SAPOVIRUS Not detected Normal NOT DETECTED [facility] Comment on above: Performed By: #### G IPAN ####Testing performed at [place] [id number] SHIGA-LIKE TOXIN-PRODUCING E COLI Not detected Normal NOT DETECTED [facility] Comment on above: Performed By: #### G IPAN ####Testing performed at [place] [id number] SHIGELLA/ENTEROINVASI VE E COLI Not detected Normal NOT DETECTED [facility] Comment on above: Performed By: #### G IPAN ####[place] [address] VIBRIO Not detected Normal NOT DETECTED [facility] Comment on above: Performed By: #### G IPAN ####[place] [address] VIBRIO CHOLERAE Not detected Normal NOT DETECTED [facility] Comment on above: Performed By: #### G IPAN ####[place] [address] YESINIA ENTEROCOLITICA Not detected Normal NOT DETECTED [facility] Comment on above: Performed By: #### G IPAN ####[place] [address] Laboratory - Chemistry and C hemistry - challengeon 01-24-2024 Anion gap [Moles/Vol] 2 mmol/L Low [facility] Calcium [Mass/Vol] 8.5 mg/dL [facility] Chloride [Moles/Vol] 102 mmol/L [facility] CO2 [Moles/Vol] 31 mmol/L High [facility] Creatinine [Mass/Vol] 0.70 mg/dL [facility] CRP [Mass/Vol] 46.5 mg/L High 0 - 10 MG/L [facility] GFR/1.73 sq M.predicted among blacks MDRD (S/P/Bld) [Vol rate/Area] 103 mL/min/{1.73_m2} ml/min/1.73sq .m [facility] GFR/1.73 sq M.predicted among non-blacks MDRD (S/P/Bld) [Vol rate/Area] 85 mL/min/{1.73_m2} ml/min/1.73sq .m [facility] Glucose post fast [Mass/Vol] 104 mg/dL High [facility] Potassium [Moles/Vol] 3.5 mmol/L [facility] Sodium [Moles/Vol] 135 mmol/L Low [facility] Urea nitrogen [Mass/Vol] 8 mg/dL [facility] - Hematology and Cell countson 01-24-2024 Basophils/100 WBC (Bld) 0.7 % 0.0 - 2.0 % [facility] Differential cell count method Nom (Bld) AUTO DIFF % [facility] Eosinophils (Bld) [#/Vol] 0.1 10*3/uL 0.0 - 0.7 10*3/uL [facility] Eosinophils/100 WBC (Bld) 2.2 % 0.0 - 11.0 % [facility] Erythrocyte distribution width (RBC) [Ratio] 14.5 % 11.5 - 14.5 % [facility] Hematocrit (Bld) [Volume fraction] 29.3 % Low 36.0 - 48.0 % [facility] Hemoglobin (Bld) [Mass/Vol] 10.1 g/dL Low [facility] Lymphocytes (Bld) [#/Vol] 1.2 10*3/uL 1.2 - 3.4 10*3/uL [facility] Lymphocytes/100 WBC (Bld) 19.3 % Low 20.0 - 55.0 % [facility] MCH (RBC) [Entitic mass] 32.7 pg 26.0 - 35.0 PG [facility] MCHC (RBC) [Mass/Vol] 34.4 g/dL [facility] MCV (RBC) [Entitic vol] 95.1 fL [facility] Monocytes (Bld) [#/Vol] 0.7 10*3/uL 0.0 - 0.7 10*3/uL [facility] Monocytes/100 WBC (Bld) 10.6 % High 0.0 - 10.0 % [facility] Neutrophils (Bld) [#/Vol] 4.2 10*3/uL 1.4 - 6.5 10*3/uL [facility] Neutrophils/100 WBC (Bld) 67.2 % 37.0 - 75.0 % [facility] Platelet mean volume (Bld) [Entitic vol] 6.8 fL Low [facility] Platelets (Bld) [#/Vol] 424 10*3/uL High 130 - 400 10*3/uL [facility] RBC (Bld) [#/Vol] 3.08 10*6/uL Low 4.0 - 5.4 10*6/uL [facility] WBC (Bld) [#/Vol] 6.2 10*3/uL 3.6 - 11.0 10*3/uL [facility] Laboratory - Microbiology an d Antimicrobial susceptibilityon 01-24-2024 Adenovirus 40+41 DNA SMILEY+non-probe Ql (Stl) Not detected NOT DETECTED [facility] Astrovirus subtypes 1-8 RNA SMILEY+non-probe Ql (Stl) Not detected NOT DETECTED [facility] C. cayetanensis DNA SMILEY+probe Ql (Unsp spec) Not detected NOT DETECTED [facility] C. coli+jejuni+upsaliens is DNA SMILEY+non-probe Ql (Stl) Not detected NOT DETECTED [facility] Cryptosporidium sp DNA SMILEY+probe Ql (Unsp spec) Not detected NOT DETECTED [facility] E. coli enteroaggregative Kandis plasmid aggR+aatA genes SMILEY+non-probe Ql (Stl) Not detected NOT DETECTED [facility] E. histolytica DNA SMILEY+probe Ql (Unsp spec) Not detected NOT DETECTED [facility] G. lamblia DNA SMILEY+non-probe Ql (Stl) Not detected NOT DETECTED [facility] P. shigelloides DNA SMILEY+non-probe Ql (Stl) Not detected NOT DETECTED [facility] Rotavirus A RNA SMILEY+non-probe Ql (Stl) Not detected NOT DETECTED [facility] S. enterica+bongori DNA SMILEY+non-probe Ql (Stl) Not detected NOT DETECTED [facility] V. cholerae DNA SMILEY+non-probe Ql (Stl) Not detected NOT DETECTED [facility] V. cholerae+parahaemolyt icus+vulnificus DNA SMILEY+non-probe Ql (Stl) Not detected NOT DETECTED [facility] Y. enterocolitica DNA SMILEY+non-probe Ql (Stl) Not detected NOT DETECTED [facility] No Panel Informationon 01-23 E COLI (EIEC) Not detected NOT DETECTED [facility] E COLI (EPEC) Not detected NOT DETECTED [facility] E COLI (ETEC) Not detected NOT DETECTED [facility] NOROVIRUS RNA Not detected NOT DETECTED [facility] SAPOVIRUS Not detected NOT DETECTED [facility] SHIGA TOXIN E. COLI Not detected NOT DETECTED A [facility] C. Diff 027 Negative NEGATIVE [facility] C.DIFFICILE TOXIN,PCR Negative NEGATIVE [facility] GFR COMMENT Average GFR for 70+ years old = 75. [facility] Interpretation and review of laboratory results Abnormal [facility] ABSOLUTE BASOPHIL COUNT 0.0 10*3/uL 0.0 - 0.2 10*3/uL [facility] Interpretation and review of laboratory results Abnormal [facility] BMP FASTINGon 01-23-2024 Anion gap [Moles/Vol] 1 mmol/L Low 8-16 [facility] Calcium [Mass/Vol] 8.5 mg/dL Normal 8.4-10.2 [facility] Chloride [Moles/Vol] 101 mmol/L Normal 98-107 [facility] Comment on above: Result Comment: Shonda matthews note: Triglyceride levels of 600mg/dL or higher may positively bias chloride results by approximately 2.1 mmol CO2 [Moles/Vol] 33 mmol/L High 22-30 [facility] Creatinine [Mass/Vol] 0.60 mg/dL Low 0.7-1.2 [facility] EST. GFR, 123 ml/min/1.73sq.m [facility] EST. GFR,Non 102 ml/min/1.73sq.m [facility] GFR Information Average GFR for 70+ years old = 75. Normal [facility] Comment on above: Result Comment: Director Of Agronomy aviva Kidney disease, GFR = <60. Kidney failure, GFR = <15. The GFR estimate is not adjusted for extreme body surface area or acute process, nor has it been validated for women or ethnic groups other than and . Glucose [Mass/Vol] 96 mg/dL Normal 70-100 [facility] Comment on above: Result Comment: NORMAL <100 mg/dL PREDIABETES 101-126 mg/dL DIABETES 126 mg/dL or higher Potassium [Moles/Vol] 3.7 mmol/L Normal 3.5-5.1 [facility] Sodium [Moles/Vol] 135 mmol/L Low 137-145 [facility] Urea nitrogen [Mass/Vol] 8 mg/dL Normal 7-20 [facility] C REACTIVE PROTEINon 024 CRP [Mass/Vol] 42.0 mg/L High 0-10 [facility] CBCon 01-23-2024 ABSOLUTE BAS 0.0 10*3/uL Normal 0.0-0.2 [facility] ABSOLUTE EOS 0.1 10*3/uL Normal 0.0-0.7 [facility] ABSOLUTE NEUTROPHIL COUNT 4.0 10*3/uL Normal 1.4-6.5 [facility] Basophils/100 WBC (Bld) 0.8 % Normal 0.0-2.0 [facility] DTYPE AUTO DIFF Normal [facility] Eosinophils/100 WBC (Bld) 2.4 % Normal 0.0-11.0 [facility] Lymphocytes (Bld) [#/Vol] 1.2 10*3/uL Normal 1.2-3.4 [facility] Lymphocytes/100 WBC (Bld) 19.6 % Low 20.0-55.0 [facility] Monocytes (Bld) [#/Vol] 0.6 10*3/uL Normal 0.0-0.7 [facility] Monocytes/100 WBC (Bld) 9.8 % Normal 0.0-10.0 [facility] Neutrophils/100 WBC (Bld) 67.4 % Normal 37.0-75.0 [facility] Erythrocyte distribution width (RBC) [Ratio] 13.9 % Normal 11.5-14.5 [facility] Hematocrit (Bld) [Volume fraction] 29.1 % Low 36.0-48.0 [facility] Hemoglobin (Bld) [Mass/Vol] 10.0 g/dL Low 12.0-16.0 [facility] MCH (RBC) [Entitic mass] 32.2 pg Normal 26.0-35.0 [facility] MCHC (RBC) [Mass/Vol] 34.3 g/dL Normal 27.0-37.0 [facility] MCV (RBC) [Entitic vol] 94.0 fL Normal 80.0-100.0 [facility] Platelet mean volume (Bld) [Entitic vol] 6.7 fL Low 7.4-11.0 [facility] Platelets (Bld) [#/Vol] 425 10*3/uL High 130-400 [facility] RBC (Bld) [#/Vol] 3.10 10*6/uL Low 4.0-5.4 [facility] WBC (Bld) [#/Vol] 6.0 10*3/uL Normal 3.6-11.0 [facility] LIPASE,SERUMon 01-23-2024 LIPASE,SERUM 32 U/L Normal 23-300 [facility] LIVER PANELon 01-23-2024 Albumin [Mass/Vol] 2.6 g/dL Low 3.5-5.0 [facility] ALP [Catalytic activity/Vol] 99 U/L Normal 38-126 [facility] ALT [Catalytic activity/Vol] 10 U/L Normal <35 [facility] AST [Catalytic activity/Vol] 25 U/L Normal 14-36 [facility] Bilirubin [Mass/Vol] 0.3 mg/dL Normal 0.2-1.3 [facility] Bilirubin.indirect [Mass/Vol] 0.3 mg/dL Normal 0-0.4 [facility] Protein [Mass/Vol] 5.6 g/dL Low 6.3-8.2 [facility] Laboratory - Chemistry and C hemistry - challengeon 01-23-2024 Albumin [Mass/Vol] 2.6 g/dL Low [facility] ALP [Catalytic activity/Vol] 99 U/L [facility] ALT [Catalytic activity/Vol] 10 U/L NINF [facility] Anion gap [Moles/Vol] 1 mmol/L Low [facility] AST [Catalytic activity/Vol] 25 U/L [facility] Bilirubin [Mass/Vol] 0.3 mg/dL [facility] Bilirubin.direct [Mass/Vol] 0.3 mg/dL [facility] Calcium [Mass/Vol] 8.5 mg/dL [facility] Chloride [Moles/Vol] 101 mmol/L [facility] CO2 [Moles/Vol] 33 mmol/L [facility] Creatinine [Mass/Vol] 0.60 mg/dL Low [facility] CRP [Mass/Vol] 42.0 mg/L High 0 - 10 MG/L [facility] GFR/1.73 sq M.predicted among blacks MDRD (S/P/Bld) [Vol rate/Area] 123 mL/min/{1.73_m2} ml/min/1.73sq .m [facility] GFR/1.73 sq M.predicted among non-blacks MDRD (S/P/Bld) [Vol rate/Area] 102 mL/min/{1.73_m2} ml/min/1.73sq .m [facility] Glucose post fast [Mass/Vol] 96 mg/dL [facility] Lipase [Catalytic activity/Vol] 32 U/L 23 - 300 U/L [facility] Potassium [Moles/Vol] 3.7 mmol/L [facility] Protein [Mass/Vol] 5.6 g/dL Low [facility] Sodium [Moles/Vol] 135 mmol/L Low [facility] Urea nitrogen [Mass/Vol] 8 mg/dL [facility] Laboratory - Hematology and Cell countson 01-23-2024 Basophils/100 WBC (Bld) 0.8 % 0.0 - 2.0 % [facility] Differential cell count method Nom (Bld) AUTO DIFF % [facility] Eosinophils (Bld) [#/Vol] 0.1 10*3/uL 0.0 - 0.7 10*3/uL [facility] Eosinophils/100 WBC (Bld) 2.4 % 0.0 - 11.0 % [facility] Erythrocyte distribution width (RBC) [Ratio] 13.9 % 11.5 - 14.5 % [facility] Hematocrit (Bld) [Volume fraction] 29.1 % Low 36.0 - 48.0 % [facility] Hemoglobin (Bld) [Mass/Vol] 10.0 g/dL Low [facility] Lymphocytes (Bld) [#/Vol] 1.2 10*3/uL 1.2 - 3.4 10*3/uL [facility] Lymphocytes/100 WBC (Bld) 19.6 % Low 20.0 - 55.0 % [facility] MCH (RBC) [Entitic mass] 32.2 pg 26.0 - 35.0 PG [facility] MCHC (RBC) [Mass/Vol] 34.3 g/dL [facility] MCV (RBC) [Entitic vol] 94.0 fL [facility] Monocytes (Bld) [#/Vol] 0.6 10*3/uL 0.0 - 0.7 10*3/uL [facility] Monocytes/100 WBC (Bld) 9.8 % 0.0 - 10.0 % [facility] Neutrophils (Bld) [#/Vol] 4.0 10*3/uL 1.4 - 6.5 10*3/uL [facility] Neutrophils/100 WBC (Bld) 67.4 % 37.0 - 75.0 % [facility] Platelet mean volume (Bld) [Entitic vol] 6.7 fL Low [facility] Platelets (Bld) [#/Vol] 425 10*3/uL High 130 - 400 10*3/uL [facility] RBC (Bld) [#/Vol] 3.10 10*6/uL Low 4.0 - 5.4 10*6/uL [facility] WBC (Bld) [#/Vol] 6.0 10*3/uL 3.6 - 11.0 10*3/uL [facility] Laboratory - Microbiology an d Antimicrobial susceptibilityon 01-23-2024 Bacteria identified Cx Nom (Unsp spec) NO PATHOGENS ISOLATED [facility] Laboratory - Miscellaneous t estson 01-23-2024 Service comment (Unsp spec) [Interp] 01/23/2024 [facility] - Urinalysison Leukocyte esterase+Nitrite Test strip Ql (U) Positive [facility] No Panel Informationon 01-22 SPECIMEN DESCRIPTION URINE - OTHER A [facility] GFR COMMENT Average GFR for 70+ years old = 75. [facility] Interpretation and review of laboratory results Abnormal [facility] ABSOLUTE BASOPHIL COUNT 0.0 10*3/uL 0.0 - 0.2 10*3/uL [facility] Interpretation and review of laboratory results Abnormal [facility] BMP FASTINGon 01-22-2024 Anion gap [Moles/Vol] 3 mmol/L Low 8-16 [facility] Comment on above: Performed By: #### F EPRO ####Testing performed at [address] [address] Calcium [Mass/Vol] 8.8 mg/dL Normal 8.4-10.2 [facility] Comment on above: Performed By: #### F EPRO ####Testing performed at [address] [address] Chloride [Moles/Vol] 101 mmol/L Normal 98-107 [facility] Comment on above: Result Comment: Shonda matthews note: Triglyceride levels of 600mg/dL or higher may positively bias chloride results by approximately 2.1 mmol Performed By: #### F EPRO ####Testing performed at [address] [address] CO2 [Moles/Vol] 33 mmol/L High 22-30 [facility] Comment on above: Performed By: #### F EPRO ####Testing performed at [address] [address] Creatinine [Mass/Vol] 0.60 mg/dL Low 0.7-1.2 [facility] Comment on above: Performed By: #### F EPRO ####Testing performed at [address] [address] EST. GFR, 123 ml/min/1.73sq.m [facility] Comment on above: Performed By: #### F EPRO ####Testing performed at [address] [address] EST. GFR,Non 102 ml/min/1.73sq.m [facility] Comment on above: Performed By: #### F EPRO ####Testing performed at [address] [address] GFR Information Average GFR for 70+ years old = 75. Normal [facility] Comment on above: Result Comment: Director Of Agronomy aviva Kidney disease, GFR = <60. Kidney failure, GFR = <15. The GFR estimate is not adjusted for extreme body surface area or acute process, nor has it been validated for women or ethnic groups other than and . Performed By: #### F EPRO ####Testing performed at [address] [address] Glucose [Mass/Vol] 88 mg/dL Normal 70-100 [facility] Comment on above: Result Comment: NORMAL <100 mg/dL PREDIABETES 101-126 mg/dL DIABETES 126 mg/dL or higher Performed By: #### F EPRO ####Testing performed at [address] [address] Potassium [Moles/Vol] 3.7 mmol/L Normal 3.5-5.1 [facility] Comment on above: Performed By: #### F EPRO ####Testing performed at [address] [address] Sodium [Moles/Vol] 137 mmol/L Normal 137-145 [facility] Comment on above: Performed By: #### F EPRO ####Testing performed at [address] [address] Urea nitrogen [Mass/Vol] 8 mg/dL Normal 7-20 [facility] Comment on above: Performed By: #### F EPRO ####Testing performed at [address] [address] C REACTIVE PROTEINon 024 CRP [Mass/Vol] 58.3 mg/L High 0-10 [facility] Comment on above: Performed By: #### F EPRO ####Testing performed at [address] [address] CBCon 01-22-2024 ABSOLUTE BAS 0.0 10*3/uL Normal 0.0-0.2 [facility] Comment on above: Performed By: #### F EPRO ####Testing performed at [address] [place] [address] ABSOLUTE EOS 0.2 10*3/uL Normal 0.0-0.7 [facility] Comment on above: Performed By: #### F EPRO ####Testing performed at [address] [place] [address] ABSOLUTE NEUTROPHIL COUNT 3.8 10*3/uL Normal 1.4-6.5 [facility] Comment on above: Performed By: #### F EPRO ####Testing performed at [address] [place] [address] Basophils/100 WBC (Bld) 0.9 % Normal 0.0-2.0 [facility] Comment on above: Performed By: #### F EPRO ####Testing performed at [address] [place] [address] DTYPE AUTO DIFF Normal [facility] Comment on above: Performed By: #### F EPRO ####Testing performed at [address] [place] [address] Eosinophils/100 WBC (Bld) 3.2 % Normal 0.0-11.0 [facility] Comment on above: Performed By: #### F EPRO ####Testing performed at [address] [place] [address] Lymphocytes (Bld) [#/Vol] 1.1 10*3/uL Low 1.2-3.4 [facility] Comment on above: Performed By: #### F EPRO ####Testing performed at [address] [place] [address] Lymphocytes/100 WBC (Bld) 19.3 % Low 20.0-55.0 [facility] Comment on above: Performed By: #### F EPRO ####Testing performed at [address] [place] [address] Monocytes (Bld) [#/Vol] 0.5 10*3/uL Normal 0.0-0.7 [facility] Comment on above: Performed By: #### F EPRO ####Testing performed at [address] [address] Monocytes/100 WBC (Bld) 8.5 % Normal 0.0-10.0 [facility] Comment on above: Performed By: #### F EPRO ####Testing performed at [address] [address] Neutrophils/100 WBC (Bld) 68.1 % Normal 37.0-75.0 [facility] Comment on above: Performed By: #### F EPRO ####Testing performed at [address] [place] [address] Erythrocyte distribution width (RBC) [Ratio] 14.1 % Normal 11.5-14.5 [facility] Comment on above: Performed By: #### F EPRO ####Testing performed at [address] [place] [address] Hematocrit (Bld) [Volume fraction] 31.8 % Low 36.0-48.0 [facility] Comment on above: Performed By: #### F EPRO ####Testing performed at [address] [place] [address] Hemoglobin (Bld) [Mass/Vol] 10.7 g/dL Low 12.0-16.0 [facility] Comment on above: Performed By: #### F EPRO ####Testing performed at [address] [address] MCH (RBC) [Entitic mass] 31.7 pg Normal 26.0-35.0 [facility] Comment on above: Performed By: #### F EPRO ####Testing performed at [address] [address] MCHC (RBC) [Mass/Vol] 33.6 g/dL Normal 27.0-37.0 [facility] Comment on above: Performed By: #### F EPRO ####Testing performed at [address] [address] MCV (RBC) [Entitic vol] 94.6 fL Normal 80.0-100.0 [facility] Comment on above: Performed By: #### F EPRO ####Testing performed at [address] [address] Platelet mean volume (Bld) [Entitic vol] 7.0 fL Low 7.4-11.0 [facility] Comment on above: Performed By: #### F EPRO ####Testing performed at [address] [address] Platelets (Bld) [#/Vol] 407 10*3/uL High 130-400 [facility] Comment on above: Performed By: #### F EPRO ####Testing performed at [address] [address] RBC (Bld) [#/Vol] 3.36 10*6/uL Low 4.0-5.4 [facility] Comment on above: Performed By: #### F EPRO ####Testing performed at [address] [address] WBC (Bld) [#/Vol] 5.6 10*3/uL Normal 3.6-11.0 [facility] Comment on above: Performed By: #### F EPRO ####Testing performed at [address] [place] [address] ESRon 01-22-2024 ESR (Bld) [Velocity] 71 mm/h High 0-30 [facility] Comment on above: Performed By: #### F EPRO ####Testing performed at [address] [place] [address] IRON PROFILEon 01-22-2024 IRON BINDING 164 UG/DL Low 250-450 [facility] Comment on above: Performed By: #### F EPRO ####Testing performed at [address] [address] TRANSFERRIN SATURATION,CALCULATED 23 % Normal [facility] Comment on above: Performed By: #### F EPRO ####Testing performed at [address] [address] Iron [Mass/Vol] 37 ug/dL Normal 37-170 [facility] Comment on above: Performed By: #### F EPRO ####Testing performed at [address] [address] Laboratory - Chemistry and C hemistry - challengeon 01-22-2024 Iron [Mass/Vol] 37 ug/dL [facility] Iron binding capacity [Mass/Vol] 164 Low [facility] Iron saturation [Mass fraction] 23 % [facility] Anion gap [Moles/Vol] 3 mmol/L Low [facility] Calcium [Mass/Vol] 8.8 mg/dL [facility] Chloride [Moles/Vol] 101 mmol/L [facility] CO2 [Moles/Vol] 33 mmol/L [facility] Creatinine [Mass/Vol] 0.60 mg/dL Low [facility] CRP [Mass/Vol] 58.3 mg/L High 0 - 10 MG/L [facility] GFR/1.73 sq M.predicted among blacks MDRD (S/P/Bld) [Vol rate/Area] 123 mL/min/{1.73_m2} ml/min/1.73sq .m [facility] GFR/1.73 sq M.predicted among non-blacks MDRD (S/P/Bld) [Vol rate/Area] 102 mL/min/{1.73_m2} ml/min/1.73sq .m [facility] Glucose post fast [Mass/Vol] 88 mg/dL [facility] Potassium [Moles/Vol] 3.7 mmol/L [facility] Sodium [Moles/Vol] 137 mmol/L [facility] Urea nitrogen [Mass/Vol] 8 mg/dL [facility] - Hematology and Cell countson 01-22-2024 ESR (Bld) [Velocity] 71 mm/h High [facility] Basophils/100 WBC (Bld) 0.9 % 0.0 - 2.0 % [facility] Differential cell count method Nom (Bld) AUTO DIFF % [facility] Eosinophils (Bld) [#/Vol] 0.2 10*3/uL 0.0 - 0.7 10*3/uL [facility] Eosinophils/100 WBC (Bld) 3.2 % 0.0 - 11.0 % [facility] Erythrocyte distribution width (RBC) [Ratio] 14.1 % 11.5 - 14.5 % [facility] Hematocrit (Bld) [Volume fraction] 31.8 % Low 36.0 - 48.0 % [facility] Hemoglobin (Bld) [Mass/Vol] 10.7 g/dL Low [facility] Lymphocytes (Bld) [#/Vol] 1.1 10*3/uL Low 1.2 - 3.4 10*3/uL [facility] Lymphocytes/100 WBC (Bld) 19.3 % Low 20.0 - 55.0 % [facility] MCH (RBC) [Entitic mass] 31.7 pg 26.0 - 35.0 PG [facility] MCHC (RBC) [Mass/Vol] 33.6 g/dL [facility] MCV (RBC) [Entitic vol] 94.6 fL [facility] Monocytes (Bld) [#/Vol] 0.5 10*3/uL 0.0 - 0.7 10*3/uL [facility] Monocytes/100 WBC (Bld) 8.5 % 0.0 - 10.0 % [facility] Neutrophils (Bld) [#/Vol] 3.8 10*3/uL 1.4 - 6.5 10*3/uL [facility] Neutrophils/100 WBC (Bld) 68.1 % 37.0 - 75.0 % [facility] Platelet mean volume (Bld) [Entitic vol] 7.0 fL Low [facility] Platelets (Bld) [#/Vol] 407 10*3/uL High 130 - 400 10*3/uL [facility] RBC (Bld) [#/Vol] 3.36 10*6/uL Low 4.0 - 5.4 10*6/uL [facility] WBC (Bld) [#/Vol] 5.6 10*3/uL 3.6 - 11.0 10*3/uL [facility] No Panel Informationon 01-21 Interpretation and review of laboratory results Abnormal [facility] Interpretation and review of laboratory results Abnormal [facility] GFR COMMENT Average GFR for 70+ years old = 75. [facility] Interpretation and review of laboratory results Abnormal [facility] ABSOLUTE BASOPHIL COUNT 0.0 10*3/uL 0.0 - 0.2 10*3/uL [facility] Interpretation and review of laboratory results Abnormal [facility] BMP FASTINGon 01-21-2024 Anion gap [Moles/Vol] 3 mmol/L Low 8-16 [facility] Calcium [Mass/Vol] 8.6 mg/dL Normal 8.4-10.2 [facility] Chloride [Moles/Vol] 102 mmol/L Normal 98-107 [facility] Comment on above: Result Comment: Plea note: Triglyceride levels of 600mg/dL or higher may positively bias chloride results by approximately 2.1 mmol CO2 [Moles/Vol] 32 mmol/L High 22-30 [facility] Creatinine [Mass/Vol] 0.60 mg/dL Low 0.7-1.2 [facility] EST. GFR, 123 ml/min/1.73sq.m [facility] EST. GFR,Non 102 ml/min/1.73sq.m [facility] GFR Information Average GFR for 70+ years old = 75. Normal [facility] Comment on above: Result Comment: Director Of Agronomy aviva Kidney disease, GFR = <60. Kidney failure, GFR = <15. The GFR estimate is not adjusted for extreme body surface area or acute process, nor has it been validated for women or ethnic groups other than and . Glucose [Mass/Vol] 100 mg/dL Normal 70-100 [facility] Comment on above: Result Comment: NORMAL <100 mg/dL PREDIABETES 101-126 mg/dL DIABETES 126 mg/dL or higher Potassium [Moles/Vol] 3.6 mmol/L Normal 3.5-5.1 [facility] Sodium [Moles/Vol] 137 mmol/L Normal 137-145 [facility] Urea nitrogen [Mass/Vol] 8 mg/dL Normal 7-20 [facility] CBCon 01-21-2024 ABSOLUTE BAS 0.0 10*3/uL Normal 0.0-0.2 [facility] ABSOLUTE EOS 0.2 10*3/uL Normal 0.0-0.7 [facility] ABSOLUTE NEUTROPHIL COUNT 3.9 10*3/uL Normal 1.4-6.5 [facility] Basophils/100 WBC (Bld) 0.6 % Normal 0.0-2.0 [facility] DTYPE AUTO DIFF Normal [facility] Eosinophils/100 WBC (Bld) 3.6 % Normal 0.0-11.0 [facility] Lymphocytes (Bld) [#/Vol] 1.2 10*3/uL Normal 1.2-3.4 [facility] Lymphocytes/100 WBC (Bld) 19.7 % Low 20.0-55.0 [facility] Monocytes (Bld) [#/Vol] 0.6 10*3/uL Normal 0.0-0.7 [facility] Monocytes/100 WBC (Bld) 9.9 % Normal 0.0-10.0 [facility] Neutrophils/100 WBC (Bld) 66.2 % Normal 37.0-75.0 [facility] Erythrocyte distribution width (RBC) [Ratio] 14.1 % Normal 11.5-14.5 [facility] Hematocrit (Bld) [Volume fraction] 27.7 % Low 36.0-48.0 [facility] Hemoglobin (Bld) [Mass/Vol] 9.5 g/dL Low 12.0-16.0 [facility] MCH (RBC) [Entitic mass] 32.6 pg Normal 26.0-35.0 [facility] MCHC (RBC) [Mass/Vol] 34.3 g/dL Normal 27.0-37.0 [facility] MCV (RBC) [Entitic vol] 95.0 fL Normal 80.0-100.0 [facility] Platelet mean volume (Bld) [Entitic vol] 6.9 fL Low 7.4-11.0 [facility] Platelets (Bld) [#/Vol] 370 10*3/uL Normal 130-400 [facility] RBC (Bld) [#/Vol] 2.91 10*6/uL Low 4.0-5.4 [facility] WBC (Bld) [#/Vol] 5.9 10*3/uL Normal 3.6-11.0 [facility] Laboratory - Chemistry and C hemistry - challengeon 01-21-2024 Anion gap [Moles/Vol] 3 mmol/L Low [facility] Calcium [Mass/Vol] 8.6 mg/dL [facility] Chloride [Moles/Vol] 102 mmol/L [facility] CO2 [Moles/Vol] 32 mmol/L High [facility] Creatinine [Mass/Vol] 0.60 mg/dL Low [facility] GFR/1.73 sq M.predicted among blacks MDRD (S/P/Bld) [Vol rate/Area] 123 mL/min/{1.73_m2} ml/min/1.73sq .m [facility] GFR/1.73 sq M.predicted among non-blacks MDRD (S/P/Bld) [Vol rate/Area] 102 mL/min/{1.73_m2} ml/min/1.73sq .m [facility] Glucose post fast [Mass/Vol] 100 mg/dL [facility] Potassium [Moles/Vol] 3.6 mmol/L [facility] Sodium [Moles/Vol] 137 mmol/L [facility] Urea nitrogen [Mass/Vol] 8 mg/dL [facility] Laboratory - Hematology and Cell countson 01-21-2024 Basophils/100 WBC (Bld) 0.6 % 0.0 - 2.0 % [facility] Differential cell count method Nom (Bld) AUTO DIFF % [facility] Eosinophils (Bld) [#/Vol] 0.2 10*3/uL 0.0 - 0.7 10*3/uL [facility] Eosinophils/100 WBC (Bld) 3.6 % 0.0 - 11.0 % [facility] Erythrocyte distribution width (RBC) [Ratio] 14.1 % 11.5 - 14.5 % [facility] Hematocrit (Bld) [Volume fraction] 27.7 % Low 36.0 - 48.0 % [facility] Hemoglobin (Bld) [Mass/Vol] 9.5 g/dL Low [facility] Lymphocytes (Bld) [#/Vol] 1.2 10*3/uL 1.2 - 3.4 10*3/uL [facility] Lymphocytes/100 WBC (Bld) 19.7 % Low 20.0 - 55.0 % [facility] MCH (RBC) [Entitic mass] 32.6 pg 26.0 - 35.0 PG [facility] MCHC (RBC) [Mass/Vol] 34.3 g/dL [facility] MCV (RBC) [Entitic vol] 95.0 fL [facility] Monocytes (Bld) [#/Vol] 0.6 10*3/uL 0.0 - 0.7 10*3/uL [facility] Monocytes/100 WBC (Bld) 9.9 % 0.0 - 10.0 % [facility] Neutrophils (Bld) [#/Vol] 3.9 10*3/uL 1.4 - 6.5 10*3/uL [facility] Neutrophils/100 WBC (Bld) 66.2 % 37.0 - 75.0 % [facility] Platelet mean volume (Bld) [Entitic vol] 6.9 fL Low [facility] Platelets (Bld) [#/Vol] 370 10*3/uL 130 - 400 10*3/uL [facility] RBC (Bld) [#/Vol] 2.91 10*6/uL Low 4.0 - 5.4 10*6/uL [facility] WBC (Bld) [#/Vol] 5.9 10*3/uL 3.6 - 11.0 10*3/uL [facility] Laboratory - Microbiology an d Antimicrobial susceptibilityon 01-21-2024 MRSA isol Org specific cx Ql (Nose) Negative NEGATIVE [facility] Laboratory - Urinalysison Bacteria LM.HPF (Urine sed) [#/Area] TRACE Abnormal NEGATIVE [facility] Casts LM.LPF (Urine sed) [#/Area] NONE NONE /LPF [facility] Crystals LM Nom (Urine sed) NONE NONE [facility] Epithelial cells LM Ql (Urine sed) 1 TO 5 /HPF [facility] Mucus Ql (Urine sed) Negative NEGATIVE [facility] RBC LM.HPF (Urine sed) [#/Area] 1 TO 5 NEGATIVE /HPF [facility] Urine sediment comments LM Girish (Urine sed) REFLEX CULTURE PER ESTABLISHED CRITERIA. [facility] WBC LM.HPF (Urine sed) [#/Area] Negative NEGATIVE /HPF [facility] MRSA SCREENon 01-21-2024 MRSA DNA SMILEY+probe Ql (Unsp spec) Negative Normal NEGATIVE [facility] STAPH AUREUS SCREEN Negative Normal NEGATIVE [facility] Comment on above: Result Comment: TEST ING PERFORMED BY PCR No Panel Informationon 01-20 Interpretation and review of laboratory results Abnormal [facility] STAPHYOCOCCUS AUREUS BY PCR Negative NEGATIVE [facility] GFR COMMENT Average GFR for 70+ years old = 75. [facility] Interpretation and review of laboratory results Abnormal [facility] ABSOLUTE BASOPHIL COUNT 0.0 10*3/uL 0.0 - 0.2 10*3/uL [facility] Interpretation and review of laboratory results Abnormal [facility] URINE CULTUREon 01-21-2024 Bacteria identified Cx Nom (U) SPECIMEN DESCRIPTION URINE - OTHER UA DIPSTICK LEUKOCYTE POSITIVE * Result Note: NITRITE NEGATIVE * CULTURE NO PATHOGENS ISOLATED * Result Note: Testing performed at [place] [address] * REPORT STATUS 01/23/2024 * Result Note: FINAL * Normal [facility] Comment on above: Performed By: #### A URNC #### Testing performed at [address] [address] Testing performed at [facility] [address] [id number] URINE MICROSCOPICon 01-21-20 24 BACTERIA TRACE Abnormal NEGATIVE [facility] CASTS NONE Normal NONE [facility] CRYSTAL NONE Normal NONE [facility] Epithelial cells LM Ql (Urine sed) 1 TO 5 Normal [facility] Mucus Ql (Urine sed) Negative Normal NEGATIVE [facility] URINE COMMENT REFLEX CULTURE PER ESTABLISHED CRITERIA. Normal [facility] URINE RBC'S 1 TO 5 Normal NEGATIVE [facility] URINE WBC'S Negative Normal NEGATIVE [facility] 25 0H VITAMIN D LEVELon 25 0H VITAMIN D LEVEL 16.9 NG/ML Normal [facility] Comment on above: Result Comment: DEFICIENT <20 NG/ML INSUFFICIENT 20-<30 NG/ML SUFFICIENT 30-100 NG/ML POTENTIAL TOXICITY >100 NG/ML BMP FASTINGon 01-20-2024 Anion gap [Moles/Vol] 2 mmol/L Low 8-16 [facility] Comment on above: Performed By: #### A CBC, FEPRO ####Testing performed at [address] [address] Calcium [Mass/Vol] 8.3 mg/dL Low 8.4-10.2 [facility] Comment on above: Performed By: #### A CBC, FEPRO ####Testing performed at [address] [address] Chloride [Moles/Vol] 103 mmol/L Normal 98-107 [facility] Comment on above: Result Comment: Plea se note: Triglyceride levels of 600mg/dL or higher may positively bias chloride results by approximately 2.1 mmol Performed By: #### A CBC, FEPRO ####Testing performed at [address] [address] CO2 [Moles/Vol] 31 mmol/L High 22-30 [facility] Comment on above: Performed By: #### A CBC, FEPRO ####Testing performed at [address] [address] Creatinine [Mass/Vol] 0.60 mg/dL Low 0.7-1.2 [facility] Comment on above: Performed By: #### A CBC, FEPRO ####Testing performed at [address] [address] EST. GFR, 123 ml/min/1.73sq.m [facility] Comment on above: Performed By: #### A CBC, FEPRO ####Testing performed at [address] [address] EST. GFR,Non 102 ml/min/1.73sq.m [facility] Comment on above: Performed By: #### A CBC, FEPRO ####Testing performed at [address] [address] GFR Information Average GFR for 70+ years old = 75. [facility] Comment on above: Result Comment: Director Of Agronomy aviva Kidney disease, GFR = <60. Kidney failure, GFR = <15. The GFR estimate is not adjusted for extreme body surface area or acute process, nor has it been validated for women or ethnic groups other than and . Performed By: #### A CBC, FEPRO ####Testing performed at [address] [address] Glucose [Mass/Vol] 91 mg/dL Normal 70-100 [facility] Comment on above: Result Comment: NORMAL <100 mg/dL PREDIABETES 101-126 mg/dL DIABETES 126 mg/dL or higher Performed By: #### A CBC, FEPRO ####Testing performed at [address] [address] Potassium [Moles/Vol] 3.8 mmol/L Normal 3.5-5.1 [facility] Comment on above: Performed By: #### A CBC, FEPRO ####Testing performed at [address] [address] Sodium [Moles/Vol] 136 mmol/L Low 137-145 [facility] Comment on above: Performed By: #### A CBC, FEPRO ####Testing performed at [address] [address] Urea nitrogen [Mass/Vol] 9 mg/dL Normal 7-20 [facility] Comment on above: Performed By: #### A CBC, FEPRO ####Testing performed at [address] [address] CBCon 01-20-2024 ABSOLUTE BAS 0.0 10*3/uL Normal 0.0-0.2 [facility] Comment on above: Performed By: #### A CBC, FEPRO ####Testing performed at [address] [address] ABSOLUTE EOS 0.2 10*3/uL Normal 0.0-0.7 [facility] Comment on above: Performed By: #### A CBC, FEPRO ####Testing performed at [address] [address] ABSOLUTE NEUTROPHIL COUNT 4.1 10*3/uL Normal 1.4-6.5 [facility] Comment on above: Performed By: #### A CBC, FEPRO ####Testing performed at [address] [address] Basophils/100 WBC (Bld) 0.8 % Normal 0.0-2.0 [facility] Comment on above: Performed By: #### A CBC, FEPRO ####Testing performed at [address] [address] DTYPE AUTO DIFF Normal [facility] Comment on above: Performed By: #### A CBC, FEPRO ####Testing performed at [address] [address] Eosinophils/100 WBC (Bld) 3.0 % Normal 0.0-11.0 [facility] Comment on above: Performed By: #### A CBC, FEPRO ####Testing performed at [address] [address] Lymphocytes (Bld) [#/Vol] 1.2 10*3/uL Normal 1.2-3.4 [facility] Comment on above: Performed By: #### A CBC, FEPRO ####Testing performed at [address] [address] Lymphocytes/100 WBC (Bld) 19.6 % Low 20.0-55.0 [facility] Comment on above: Performed By: #### A CBC, FEPRO ####Testing performed at [address] [address] Monocytes (Bld) [#/Vol] 0.7 10*3/uL Normal 0.0-0.7 [facility] Comment on above: Performed By: #### A CBC, FEPRO ####Testing performed at [address] [address] Monocytes/100 WBC (Bld) 10.9 % High 0.0-10.0 [facility] Comment on above: Performed By: #### A CBC, FEPRO ####Testing performed at [address] [address] Neutrophils/100 WBC (Bld) 65.7 % Normal 37.0-75.0 [facility] Comment on above: Performed By: #### A CBC, FEPRO ####Testing performed at [address] [address] Erythrocyte distribution width (RBC) [Ratio] 14.0 % Normal 11.5-14.5 [facility] Comment on above: Performed By: #### A CBC, FEPRO ####Testing performed at [address] [address] Hematocrit (Bld) [Volume fraction] 27.6 % Low 36.0-48.0 [facility] Comment on above: Performed By: #### A CBC, FEPRO ####Testing performed at [address] [address] Hemoglobin (Bld) [Mass/Vol] 9.4 g/dL Low 12.0-16.0 [facility] Comment on above: Performed By: #### A CBC, FEPRO ####Testing performed at [address] [address] MCH (RBC) [Entitic mass] 32.3 pg Normal 26.0-35.0 [facility] Comment on above: Performed By: #### A CBC, FEPRO ####Testing performed at [address] [address] MCHC (RBC) [Mass/Vol] 34.0 g/dL Normal 27.0-37.0 [facility] Comment on above: Performed By: #### A CBC, FEPRO ####Testing performed at [address] [address] MCV (RBC) [Entitic vol] 95.0 fL Normal 80.0-100.0 [facility] Comment on above: Performed By: #### A CBC, FEPRO ####Testing performed at [address] [address] Platelet mean volume (Bld) [Entitic vol] 6.9 fL Low 7.4-11.0 [facility] Comment on above: Performed By: #### A CBC, FEPRO ####Testing performed at [address] [address] Platelets (Bld) [#/Vol] 357 10*3/uL Normal 130-400 [facility] Comment on above: Performed By: #### A CBC, FEPRO ####Testing performed at [address] [address] RBC (Bld) [#/Vol] 2.90 10*6/uL Low 4.0-5.4 [facility] Comment on above: Performed By: #### A CBC, FEPRO ####Testing performed at [address] [place] [address] WBC (Bld) [#/Vol] 6.3 10*3/uL Normal 3.6-11.0 [facility] Comment on above: Performed By: #### A CBC, FEPRO ####Testing performed at [facility] [place] [facility] [place] [address] IRON PROFILEon 01-20-2024 IRON BINDING 144 UG/DL Low 250-450 [facility] Comment on above: Performed By: #### A CBC #### Testing performed at [place] [address] [place] [address] TRANSFERRIN SATURATION,CALCULATED 20 % Normal [facility] Comment on above: Performed By: #### A CBC #### Testing performed at [place] [address] [place] [address] Iron [Mass/Vol] 29 ug/dL Low 37-170 [facility] Comment on above: Performed By: #### A CBC #### Testing performed at [place] [address] [place] [address] Laboratory - Chemistry and C hemistry - challengeon 01-20-2024 25-hydroxyvitamin D [Mass/Vol] 16.9 NG/ML [facility] Parathyrin.intact [Mass/Vol] 40.2 pg/mL 14.5 - 75.2 pg/mL [facility] Iron [Mass/Vol] 29 ug/dL Low [facility] Iron binding capacity [Mass/Vol] 144 Low [facility] Anion gap [Moles/Vol] 2 mmol/L Low [facility] Calcium [Mass/Vol] 8.3 mg/dL Low [facility] Chloride [Moles/Vol] 103 mmol/L [facility] CO2 [Moles/Vol] 31 mmol/L High [facility] Creatinine [Mass/Vol] 0.60 mg/dL Low [facility] GFR/1.73 sq M.predicted among blacks MDRD (S/P/Bld) [Vol rate/Area] 123 mL/min/{1.73_m2} ml/min/1.73sq .m [facility] GFR/1.73 sq M.predicted among non-blacks MDRD (S/P/Bld) [Vol rate/Area] 102 mL/min/{1.73_m2} ml/min/1.73sq .m [facility] Glucose post fast [Mass/Vol] 91 mg/dL [facility] Potassium [Moles/Vol] 3.8 mmol/L [facility] Sodium [Moles/Vol] 136 mmol/L Low [facility] Urea nitrogen [Mass/Vol] 9 mg/dL [facility] Laboratory - Hematology and Cell countson 01-20-2024 Basophils/100 WBC (Bld) 0.8 % 0.0 - 2.0 % [facility] Differential cell count method Nom (Bld) AUTO DIFF % [facility] Eosinophils (Bld) [#/Vol] 0.2 10*3/uL 0.0 - 0.7 10*3/uL [facility] Eosinophils/100 WBC (Bld) 3.0 % 0.0 - 11.0 % [facility] Erythrocyte distribution width (RBC) [Ratio] 14.0 % 11.5 - 14.5 % [facility] Hematocrit (Bld) [Volume fraction] 27.6 % Low 36.0 - 48.0 % [facility] Hemoglobin (Bld) [Mass/Vol] 9.4 g/dL Low [facility] Lymphocytes (Bld) [#/Vol] 1.2 10*3/uL 1.2 - 3.4 10*3/uL [facility] Lymphocytes/100 WBC (Bld) 19.6 % Low 20.0 - 55.0 % [facility] MCH (RBC) [Entitic mass] 32.3 pg 26.0 - 35.0 PG [facility] MCHC (RBC) [Mass/Vol] 34.0 g/dL [facility] MCV (RBC) [Entitic vol] 95.0 fL [facility] Monocytes (Bld) [#/Vol] 0.7 10*3/uL 0.0 - 0.7 10*3/uL [facility] Monocytes/100 WBC (Bld) 10.9 % High 0.0 - 10.0 % [facility] Neutrophils (Bld) [#/Vol] 4.1 10*3/uL 1.4 - 6.5 10*3/uL [facility] Neutrophils/100 WBC (Bld) 65.7 % 37.0 - 75.0 % [facility] Platelet mean volume (Bld) [Entitic vol] 6.9 fL Low [facility] Platelets (Bld) [#/Vol] 357 10*3/uL 130 - 400 10*3/uL [facility] RBC (Bld) [#/Vol] 2.90 10*6/uL Low 4.0 - 5.4 10*6/uL [facility] WBC (Bld) [#/Vol] 6.3 10*3/uL 3.6 - 11.0 10*3/uL [facility] No Panel Informationon 01-19 [facility] Interpretation and review of laboratory results Abnormal [facility] Transferrin Saturation (%) 20 % [facility] GFR COMMENT Average GFR for 70+ years old = 75. [facility] Interpretation and review of laboratory results Abnormal [facility] ABSOLUTE BASOPHIL COUNT 0.0 10*3/uL 0.0 - 0.2 10*3/uL [facility] Interpretation and review of laboratory results Abnormal [facility] PTH,INTACTon 01-20-2024 PTH,INTACT 40.2 pg/mL Normal 14.5-75.2 [facility] Comment on above: Performed By: #### A CBC #### [place] [address] Portable XR Chest Viewson RADIOLOGY RADIOLOGY [facility] Radiology Study observation (narrative) [facility] Portable XR Chest ViewsOrder ed By: Katina Carlisle on 01-20-2024 [facility] XR CHEST 1 VIEW PORTABLEon 0 [...] markings which may well be chronic. Normal [facility] BASIC METABOLIC PANELon 07- Anion gap [Moles/Vol] 3 mmol/L MMOL/L [facility] Calcium [Mass/Vol] 8.4 mg/dL [facility] Chloride [Moles/Vol] 105 mmol/L [facility] Comment on above: Please note: Triglyc eride levels of 600mg/dL or higher may positively bias chloride results by approximately 2.1 mmol CO2 [Moles/Vol] 27 mmol/L [facility] Creatinine [Mass/Vol] 0.60 mg/dL Low [facility] GFR COMMENT Average GFR for 70+ years old = 75. [facility] Comment on above: Chronic Kidney disea se, GFR = <60. Kidney failure, GFR = <15. The GFR estimate is not adjusted for extreme body surface area or acute process, nor has it been validated for women or ethnic groups other than and . GFR/1.73 sq M.predicted among blacks MDRD (S/P/Bld) [Vol rate/Area] 123 mL/min/{1.73_m2} ml/min/1.73sq .m [facility] GFR/1.73 sq M.predicted among non-blacks MDRD (S/P/Bld) [Vol rate/Area] 102 mL/min/{1.73_m2} ml/min/1.73sq .m [facility] Glucose post fast [Mass/Vol] 119 mg/dL High [facility] Comment on above: NORMAL <100 mg/dL PREDIABETES 101-126 mg/dL DIABETES 126 mg/dL or higher Interpretation and review of laboratory results Abnormal [facility] Potassium [Moles/Vol] 3.5 mmol/L [facility] Sodium [Moles/Vol] 135 mmol/L Low [facility] Urea nitrogen [Mass/Vol] 10 mg/dL [facility] BMP FASTINGon 01-18-2024 Anion gap [Moles/Vol] 3 mmol/L Normal [facility] Comment on above: Performed By: #### U GRUPO, UMAC #### Testing performed at [address] [address] Calcium [Mass/Vol] 8.4 mg/dL Normal 8.4-10.2 [facility] Comment on above: Performed By: #### U GRUPO, UMAC #### Testing performed at [address] [address] Chloride [Moles/Vol] 105 mmol/L Normal 98-107 [facility] Comment on above: Result Comment: Shonda matthews note: Triglyceride levels of 600mg/dL or higher may positively bias chloride results by approximately 2.1 mmol Performed By: #### U GRUPO, UMAC #### Testing performed at [address] [address] CO2 [Moles/Vol] 27 mmol/L Normal 22-30 [facility] Comment on above: Performed By: #### U GRUPO, UMAC #### Testing performed at [address] [address] Creatinine [Mass/Vol] 0.60 mg/dL Low 0.70-1.20 [facility] Comment on above: Performed By: #### U GRUPO, UMAC #### Testing performed at [address] [address] EST. GFR, 123 ml/min/1.73sq.m [facility] Comment on above: Performed By: #### U GRUPO, UMAC #### Testing performed at [address] [address] EST. GFR,Non 102 ml/min/1.73sq.m [facility] Comment on above: Performed By: #### U GRUPO, UMAC #### Testing performed at [address] [address] GFR Information Average GFR for 70+ years old = 75. Normal [facility] Comment on above: Result Comment: Director Of Agronomy aviva Kidney disease, GFR = <60. Kidney failure, GFR = <15. The GFR estimate is not adjusted for extreme body surface area or acute process, nor has it been validated for women or ethnic groups other than and . Performed By: #### U GRUPO, UMAC #### Testing performed at [address] [address] Glucose [Mass/Vol] 119 mg/dL High 70-100 [facility] Comment on above: Result Comment: NORMAL <100 mg/dL PREDIABETES 101-126 mg/dL DIABETES 126 mg/dL or higher Performed By: #### U GRUPO, UMAC #### Testing performed at [address] [address] Potassium [Moles/Vol] 3.5 mmol/L Normal 3.5-5.1 [facility] Comment on above: Performed By: #### U GRUPO, UMAC #### Testing performed at [address] [address] Sodium [Moles/Vol] 135 mmol/L Low 137-145 [facility] Comment on above: Performed By: #### U GRUPO, UMAC #### Testing performed at [address] [address] Urea nitrogen [Mass/Vol] 10 mg/dL Normal 7-20 [facility] Comment on above: Performed By: #### U GRUPO, UMAC #### Testing performed at [address] [address] CBCon 01-17-2024 ABSOLUTE BAS 0.0 10*3/uL Normal 0.0-0.2 [facility] Comment on above: Performed By: #### U GRUPO, UMAC #### Testing performed at [address] [address] ABSOLUTE EOS 0.1 10*3/uL Normal 0.0-0.7 [facility] Comment on above: Performed By: #### U GRUPO, UMAC #### Testing performed at [address] [address] ABSOLUTE NEUTROPHIL COUNT 4.7 10*3/uL Normal 1.4-6.5 [facility] Comment on above: Performed By: #### U GRUPO, UMAC #### Testing performed at [address] [address] Basophils/100 WBC (Bld) 0.6 % Normal 0.0-2.0 [facility] Comment on above: Performed By: #### U GRUPO, UMAC #### Testing performed at [address] [address] DTYPE AUTO DIFF Normal [facility] Comment on above: Performed By: #### U GRUPO, UMAC #### Testing performed at [address] [address] Eosinophils/100 WBC (Bld) 1.9 % Normal 0.0-11.0 [facility] Comment on above: Performed By: #### U GRUPO, UMAC #### Testing performed at [address] [address] Erythrocyte distribution width (RBC) [Ratio] 13.9 % Normal 11.5-14.5 [facility] Comment on above: Performed By: #### U GRUPO, UMAC #### Testing performed at [address] [address] Hematocrit (Bld) [Volume fraction] 29.2 % Low 36.0-48.0 [facility] Comment on above: Performed By: #### U GRUPO, UMAC #### Testing performed at [address] [address] Hemoglobin (Bld) [Mass/Vol] 9.8 g/dL Low 12.0-16.0 [facility] Comment on above: Performed By: #### U GRUPO, UMAC #### Testing performed at [address] [address] Lymphocytes (Bld) [#/Vol] 1.1 10*3/uL Low 1.2-3.4 [facility] Comment on above: Performed By: #### U GRUPO, UMAC #### Testing performed at [address] [address] Lymphocytes/100 WBC (Bld) 16.5 % Low 20.0-55.0 [facility] Comment on above: Performed By: #### U GRUPO, UMAC #### Testing performed at [address] [address] MCH (RBC) [Entitic mass] 31.8 pg Normal 26.0-35.0 [facility] Comment on above: Performed By: #### U GRUPO, UMAC #### Testing performed at [address] [address] MCHC (RBC) [Mass/Vol] 33.6 g/dL Normal 27.0-37.0 [facility] Comment on above: Performed By: #### U GRUPO, UMAC #### Testing performed at [address] [address] MCV (RBC) [Entitic vol] 94.6 fL Normal 80.0-100.0 [facility] Comment on above: Performed By: #### U GRUPO, UMAC #### Testing performed at [address] [address] Monocytes (Bld) [#/Vol] 0.8 10*3/uL High 0.0-0.7 [facility] Comment on above: Performed By: #### U GRUPO, UMAC #### Testing performed at [address] [address] Monocytes/100 WBC (Bld) 11.9 % High 0.0-10.0 [facility] Comment on above: Performed By: #### U GRUPO, UMAC #### Testing performed at [address] [address] Neutrophils/100 WBC (Bld) 69.1 % Normal 37.0-75.0 [facility] Comment on above: Performed By: #### U GRUPO, UMAC #### Testing performed at [address] [address] Platelet mean volume (Bld) [Entitic vol] 7.9 fL Normal 7.4-11.0 [facility] Comment on above: Performed By: #### U GRUPO, UMAC #### Testing performed at [address] [address] Platelets (Bld) [#/Vol] 279 10*3/uL Normal 130-400 [facility] Comment on above: Performed By: #### U GRUPO, UMAC #### Testing performed at [address] [address] RBC (Bld) [#/Vol] 3.09 10*6/uL Low 4.0-5.4 [facility] Comment on above: Performed By: #### U GURPO, UMAC #### Testing performed at [address] [address] WBC (Bld) [#/Vol] 6.8 10*3/uL Normal 3.6-11.0 [facility] Comment on above: Performed By: #### U GRUPO, UMAC #### Testing performed at [address] [address] CBC, EDIF, PLATELETon 2023 ABSOLUTE BASOPHIL COUNT 0.0 10*3/uL 0.0 - 0.2 10*3/uL [facility] Basophils/100 WBC (Bld) 0.6 % 0.0 - 2.0 % [facility] Differential cell count method Nom (Bld) AUTO DIFF % [facility] Eosinophils (Bld) [#/Vol] 0.1 10*3/uL 0.0 - 0.7 10*3/uL [facility] Eosinophils/100 WBC (Bld) 1.9 % 0.0 - 11.0 % [facility] Erythrocyte distribution width (RBC) [Ratio] 13.9 % 11.5 - 14.5 % [facility] Hematocrit (Bld) [Volume fraction] 29.2 % Low 36.0 - 48.0 % [facility] Hemoglobin (Bld) [Mass/Vol] 9.8 g/dL Low [facility] Interpretation and review of laboratory results Abnormal [facility] Lymphocytes (Bld) [#/Vol] 1.1 10*3/uL Low 1.2 - 3.4 10*3/uL [facility] Lymphocytes/100 WBC (Bld) 16.5 % Low 20.0 - 55.0 % [facility] MCH (RBC) [Entitic mass] 31.8 pg 26.0 - 35.0 PG [facility] MCHC (RBC) [Mass/Vol] 33.6 g/dL [facility] MCV (RBC) [Entitic vol] 94.6 fL [facility] Monocytes (Bld) [#/Vol] 0.8 10*3/uL High 0.0 - 0.7 10*3/uL [facility] Monocytes/100 WBC (Bld) 11.9 % High 0.0 - 10.0 % [facility] Neutrophils (Bld) [#/Vol] 4.7 10*3/uL 1.4 - 6.5 10*3/uL [facility] Neutrophils/100 WBC (Bld) 69.1 % 37.0 - 75.0 % [facility] Platelet mean volume (Bld) [Entitic vol] 7.9 fL [facility] Platelets (Bld) [#/Vol] 279 10*3/uL 130 - 400 10*3/uL [facility] RBC (Bld) [#/Vol] 3.09 10*6/uL Low 4.0 - 5.4 10*6/uL [facility] WBC (Bld) [#/Vol] 6.8 10*3/uL 3.6 - 11.0 10*3/uL [facility] RENAL FUNCTION PANELon 01-16 Albumin [Mass/Vol] 2.6 G/dl Low 3.5 - 5.0 G/dl [facility] Calcium [Mass/Vol] 8.2 mg/dL Low [facility] Chloride [Moles/Vol] 105 mmol/L [facility] Comment on above: Please note: Triglyc eride levels of 600mg/dL or higher may positively bias chloride results by approximately 2.1 mmol CO2 [Moles/Vol] 29 mmol/L [facility] Creatinine [Mass/Vol] 0.51 mg/dL Low [facility] GFR COMMENT Average GFR for 70+ years old = 75. [facility] Comment on above: Chronic Kidney disea se, GFR = <60. Kidney failure, GFR = <15. The GFR estimate is not adjusted for extreme body surface area or acute process, nor has it been validated for women or ethnic groups other than and . GFR/1.73 sq M.predicted among blacks MDRD (S/P/Bld) [Vol rate/Area] 149 mL/min/{1.73_m2} ml/min/1.73sq .m [facility] GFR/1.73 sq M.predicted among non-blacks MDRD (S/P/Bld) [Vol rate/Area] 123 mL/min/{1.73_m2} ml/min/1.73sq .m [facility] Glucose post fast [Mass/Vol] 106 mg/dL High [facility] Comment on above: NORMAL <100 mg/dL PREDIABETES 101-126 mg/dL DIABETES 126 mg/dL or higher Interpretation and review of laboratory results Abnormal [facility] Phosphate [Mass/Vol] 2.6 mg/dL [facility] Potassium [Moles/Vol] 3.3 mmol/L Low [facility] Sodium [Moles/Vol] 135 mmol/L Low [facility] Urea nitrogen [Mass/Vol] 10 mg/dL [facility] RENAL PANEL,FASTINGon 2023 ALBUMIN 2.6 G/dl Low 3.5-5.0 [facility] Comment on above: Performed By: #### U GRUPO, UMAC #### Testing performed at [address] [address] Calcium [Mass/Vol] 8.2 mg/dL Low 8.4-10.2 [facility] Comment on above: Performed By: #### U GRUPO, UMAC #### Testing performed at [address] [address] Chloride [Moles/Vol] 105 mmol/L Normal 98-107 [facility] Comment on above: Result Comment: Shonda matthews note: Triglyceride levels of 600mg/dL or higher may positively bias chloride results by approximately 2.1 mmol Performed By: #### U GRUPO, UMAC #### Testing performed at [address] [address] CO2 [Moles/Vol] 29 mmol/L Normal 22-30 [facility] Comment on above: Performed By: #### U GRUPO, UMAC #### Testing performed at [address] [address] Creatinine [Mass/Vol] 0.51 mg/dL Low 0.70-1.20 [facility] Comment on above: Performed By: #### U GRUPO, UMAC #### Testing performed at [address] [address] EST. GFR, 149 ml/min/1.73sq.m [facility] Comment on above: Performed By: #### U GRUPO, UMAC #### Testing performed at [address] [address] EST. GFR,Non 123 ml/min/1.73sq.m [facility] Comment on above: Performed By: #### U GRUPO, UMAC #### Testing performed at [address] [address] GFR Information Average GFR for 70+ years old = 75. [facility] Comment on above: Result Comment: Director Of Agronomy aviva Kidney disease, GFR = <60. Kidney failure, GFR = <15. The GFR estimate is not adjusted for extreme body surface area or acute process, nor has it been validated for women or ethnic groups other than and . Performed By: #### U GRUPO, UMAC #### Testing performed at [address] [address] Glucose [Mass/Vol] 106 mg/dL High 70-100 [facility] Comment on above: Result Comment: NORMAL <100 mg/dL PREDIABETES 101-126 mg/dL DIABETES 126 mg/dL or higher Performed By: #### U GRUPO, UMAC #### Testing performed at [address] [address] PHOSPHOROUS 2.6 MG/DL Normal 2.5-4.5 [facility] Comment on above: Performed By: #### U GRUPO, UMAC #### Testing performed at [address] [address] Potassium [Moles/Vol] 3.3 mmol/L Low 3.5-5.1 [facility] Comment on above: Performed By: #### U GRUPO, UMAC #### Testing performed at [address] [address] Sodium [Moles/Vol] 135 mmol/L Low 137-145 [facility] Comment on above: Performed By: #### U GRUPO, UMAC #### Testing performed at [facility] [address] [place] [address] Urea nitrogen [Mass/Vol] 10 mg/dL Normal 7-20 [facility] Comment on above: Performed By: #### U GRUPO, UMAC #### Testing performed at [address] [address] SURGICAL PATHOLOGY REQUESTon 01-17-2024 Pathology report final diagnosis Narrative Surgical Final Report Patient Name: CUATE GOODMAN Med. Rec. #: [id number] Physician: ERIK HEREDIA Specimen(s) Received Left femoral [...] articular cartilage degeneration. Sectioning reveals unremarkable bone. Extension Work Instructor sections are submitted in one cassette and placed in decalcification solution prior to processing. Billing Fee Code(s) A: 37712, [address]80 [facility] XR FOOT RIGHT 2 VIEWSon XR [...] and hallux valgus with osseous demineralization. Normal [facility] XR Foot - right 2 [...] DJD and hallux valgus with osseous demineralization. [facility] Radiology Study observation (narrative) [facility] XR Foot - right 2 ViewsOrder ed By: Miguel Marin on 01-17-2024 [facility] Work Phone: CBCon 01-14-2024 ABSOLUTE BAS 0.0 10*3/uL Normal 0.0-0.2 [facility] Comment on above: Performed By: #### U [facility], UMAC #### Testing performed at [facility] [address] [place] [address] ABSOLUTE EOS 0.1 10*3/uL Normal 0.0-0.7 [facility] Comment on above: Performed By: #### U GRUPO, UMAC #### Testing performed at [address] [place] [address] ABSOLUTE NEUTROPHIL COUNT 7.6 10*3/uL High 1.4-6.5 [facility] Comment on above: Performed By: #### U GRUPO, UMAC #### Testing performed at [address] [place] [address] Basophils/100 WBC (Bld) 0.3 % Normal 0.0-2.0 [facility] Comment on above: Performed By: #### U GRUPO, UMAC #### Testing performed at [address] [place] [address] DTYPE AUTO DIFF Normal [facility] Comment on above: Performed By: #### U GRUPO, UMAC #### Testing performed at [address] [place] [address] Eosinophils/100 WBC (Bld) 0.5 % Normal 0.0-11.0 [facility] Comment on above: Performed By: #### U GRUPO, UMAC #### Testing performed at [address] [place] [address] Lymphocytes (Bld) [#/Vol] 1.1 10*3/uL Low 1.2-3.4 [facility] Comment on above: Performed By: #### U GRUPO, UMAC #### Testing performed at [address] [place] [address] Lymphocytes/100 WBC (Bld) 11.0 % Low 20.0-55.0 [facility] Comment on above: Performed By: #### U GRUPO, UMAC #### Testing performed at [address] [place] [address] Monocytes (Bld) [#/Vol] 1.1 10*3/uL High 0.0-0.7 [facility] Comment on above: Performed By: #### U GRUPO, UMAC #### Testing performed at [address] [place] [address] Monocytes/100 WBC (Bld) 10.8 % High 0.0-10.0 [facility] Comment on above: Performed By: #### U GRUPO, UMAC #### Testing performed at [address] [place] [address] Neutrophils/100 WBC (Bld) 77.4 % High 37.0-75.0 [facility] Comment on above: Performed By: #### U GRUPO, UMAC #### Testing performed at [address] [place] [address] Erythrocyte distribution width (RBC) [Ratio] 14.6 % High 11.5-14.5 [facility] Comment on above: Performed By: #### U GRUPO, UMAC #### Testing performed at [address] [place] [address] Hematocrit (Bld) [Volume fraction] 32.1 % Low 36.0-48.0 [facility] Comment on above: Performed By: #### U GRUPO, UMAC #### Testing performed at [address] [address] Hemoglobin (Bld) [Mass/Vol] 10.5 g/dL Low 12.0-16.0 [facility] Comment on above: Performed By: #### U GRUPO, UMAC #### Testing performed at [address] [address] MCH (RBC) [Entitic mass] 31.4 pg Normal 26.0-35.0 [facility] Comment on above: Performed By: #### U GRUPO, UMAC #### Testing performed at [address] [address] MCHC (RBC) [Mass/Vol] 32.8 g/dL Normal 27.0-37.0 [facility] Comment on above: Performed By: #### U GRUPO, UMAC #### Testing performed at [address] [place] [address] MCV (RBC) [Entitic vol] 96.0 fL Normal 80.0-100.0 [facility] Comment on above: Performed By: #### U GRUPO, UMAC #### Testing performed at [address] [place] [address] Platelet mean volume (Bld) [Entitic vol] 8.4 fL Normal 7.4-11.0 [facility] Comment on above: Performed By: #### U GRUPO, UMAC #### Testing performed at [address] [place] [address] Platelets (Bld) [#/Vol] 226 10*3/uL Normal 130-400 [facility] Comment on above: Performed By: #### U GRUPO, UMAC #### Testing performed at [address] [address] RBC (Bld) [#/Vol] 3.35 10*6/uL Low 4.0-5.4 [facility] Comment on above: Performed By: #### U GRUPO, UMAC #### Testing performed at [address] [address] WBC (Bld) [#/Vol] 9.9 10*3/uL Normal 3.6-11.0 [facility] Comment on above: Performed By: #### U GRUPO, UMAC #### Testing performed at [address] [address] CBC, EDIF, PLATELETon 2023 ABSOLUTE BASOPHIL COUNT 0.0 10*3/uL 0.0 - 0.2 10*3/uL [facility] Basophils/100 WBC (Bld) 0.3 % 0.0 - 2.0 % [facility] Differential cell count method Nom (Bld) AUTO DIFF % [facility] Eosinophils (Bld) [#/Vol] 0.1 10*3/uL 0.0 - 0.7 10*3/uL [facility] Eosinophils/100 WBC (Bld) 0.5 % 0.0 - 11.0 % [facility] Erythrocyte distribution width (RBC) [Ratio] 14.6 % High 11.5 - 14.5 % [facility] Hematocrit (Bld) [Volume fraction] 32.1 % Low 36.0 - 48.0 % [facility] Hemoglobin (Bld) [Mass/Vol] 10.5 g/dL Low [facility] Interpretation and review of laboratory results Abnormal [facility] Lymphocytes (Bld) [#/Vol] 1.1 10*3/uL Low 1.2 - 3.4 10*3/uL [facility] Lymphocytes/100 WBC (Bld) 11.0 % Low 20.0 - 55.0 % [facility] MCH (RBC) [Entitic mass] 31.4 pg 26.0 - 35.0 PG [facility] MCHC (RBC) [Mass/Vol] 32.8 g/dL [facility] MCV (RBC) [Entitic vol] 96.0 fL [facility] Monocytes (Bld) [#/Vol] 1.1 10*3/uL High 0.0 - 0.7 10*3/uL [facility] Monocytes/100 WBC (Bld) 10.8 % High 0.0 - 10.0 % [facility] Neutrophils (Bld) [#/Vol] 7.6 10*3/uL High 1.4 - 6.5 10*3/uL [facility] Neutrophils/100 WBC (Bld) 77.4 % High 37.0 - 75.0 % [facility] Platelet mean volume (Bld) [Entitic vol] 8.4 fL [facility] Platelets (Bld) [#/Vol] 226 10*3/uL 130 - 400 10*3/uL [facility] RBC (Bld) [#/Vol] 3.35 10*6/uL Low 4.0 - 5.4 10*6/uL [facility] WBC (Bld) [#/Vol] 9.9 10*3/uL 3.6 - 11.0 10*3/uL [facility] BASIC METABOLIC PANELon 06- Anion gap [Moles/Vol] 4 mmol/L MMOL/L [facility] Calcium [Mass/Vol] 9.0 mg/dL [facility] Chloride [Moles/Vol] 107 mmol/L [facility] Comment on above: Please note: Triglyc eride levels of 600mg/dL or higher may positively bias chloride results by approximately 2.1 mmol CO2 [Moles/Vol] 26 mmol/L [facility] Creatinine [Mass/Vol] 0.70 mg/dL [facility] GFR COMMENT Average GFR for 70+ years old = 75. [facility] Comment on above: Chronic Kidney disea se, GFR = <60. Kidney failure, GFR = <15. The GFR estimate is not adjusted for extreme body surface area or acute process, nor has it been validated for women or ethnic groups other than and . GFR/1.73 sq M.predicted among blacks MDRD (S/P/Bld) [Vol rate/Area] 103 mL/min/{1.73_m2} ml/min/1.73sq .m [facility] GFR/1.73 sq M.predicted among non-blacks MDRD (S/P/Bld) [Vol rate/Area] 85 mL/min/{1.73_m2} ml/min/1.73sq .m [facility] Glucose post fast [Mass/Vol] 164 mg/dL High [facility] Comment on above: NORMAL <100 mg/dL PREDIABETES 101-126 mg/dL DIABETES 126 mg/dL or higher Interpretation and review of laboratory results Abnormal [facility] Potassium [Moles/Vol] 4.2 mmol/L [facility] Sodium [Moles/Vol] 137 mmol/L [facility] Urea nitrogen [Mass/Vol] 19 mg/dL [facility] BMP FASTINGon 01-13-2024 Anion gap [Moles/Vol] 4 mmol/L Normal [facility] Comment on above: Performed By: #### A CBC, BMPF #### Testing performed at [address] [address] Calcium [Mass/Vol] 9.0 mg/dL Normal 8.4-10.2 [facility] Comment on above: Performed By: #### A CBC, BMPF #### Testing performed at [address] [address] Chloride [Moles/Vol] 107 mmol/L Normal 98-107 [facility] Comment on above: Result Comment: Shonda matthews note: Triglyceride levels of 600mg/dL or higher may positively bias chloride results by approximately 2.1 mmol Performed By: #### A CBC, BMPF #### Testing performed at [address] [address] CO2 [Moles/Vol] 26 mmol/L Normal 22-30 [facility] Comment on above: Performed By: #### A CBC, BMPF #### Testing performed at [address] [address] Creatinine [Mass/Vol] 0.70 mg/dL Normal 0.70-1.20 [facility] Comment on above: Performed By: #### A CBC, BMPF #### Testing performed at [address] [address] EST. GFR, 103 ml/min/1.73sq.m [facility] Comment on above: Performed By: #### A CBC, BMPF #### Testing performed at [address] [address] EST. GFR,Non 85 ml/min/1.73sq.m [facility] Comment on above: Performed By: #### A CBC, BMPF #### Testing performed at [address] [address] GFR Information Average GFR for 70+ years old = 75. Normal [facility] Comment on above: Result Comment: Director Of [employer]gronomy aviva Kidney disease, GFR = <60. Kidney failure, GFR = <15. The GFR estimate is not adjusted for extreme body surface area or acute process, nor has it been validated for women or ethnic groups other than and . Performed By: #### A CBC, BMPF #### Testing performed at [address] [address] Glucose [Mass/Vol] 164 mg/dL High 70-100 [facility] Comment on above: Result Comment: NORMAL <100 mg/dL PREDIABETES 101-126 mg/dL DIABETES 126 mg/dL or higher Performed By: #### A CBC, BMPF #### Testing performed at [address] [address] Potassium [Moles/Vol] 4.2 mmol/L Normal 3.5-5.1 [facility] Comment on above: Performed By: #### A CBC, BMPF #### Testing performed at [address] [address] Sodium [Moles/Vol] 137 mmol/L Normal 137-145 [facility] Comment on above: Performed By: #### A CBC, BMPF #### Testing performed at [address] [address] Urea nitrogen [Mass/Vol] 19 mg/dL Normal 7-20 [facility] Comment on above: Performed By: #### A CBC, BMPF #### Testing performed at [address] [place] [address] CBCon 01-13-2024 ABSOLUTE BAS 0.0 10*3/uL Normal 0.0-0.2 [facility] Comment on above: Performed By: #### A CBC, BMPF #### Testing performed at [address] [place] [address] ABSOLUTE EOS 0.0 10*3/uL Normal 0.0-0.7 [facility] Comment on above: Performed By: #### A CBC, BMPF #### Testing performed at [address] [address] ABSOLUTE NEUTROPHIL COUNT 8.6 10*3/uL High 1.4-6.5 [facility] Comment on above: Performed By: #### A CBC, BMPF #### Testing performed at [address] [address] Basophils/100 WBC (Bld) 0.0 % Normal 0.0-2.0 [facility] Comment on above: Performed By: #### A CBC, BMPF #### Testing performed at [address] [place] [address] DTYPE AUTO DIFF Normal [facility] Comment on above: Performed By: #### A CBC, BMPF #### Testing performed at [address] [place] [address] Eosinophils/100 WBC (Bld) 0.0 % Normal 0.0-11.0 [facility] Comment on above: Performed By: #### A CBC, BMPF #### Testing performed at [address] [place] [address] Lymphocytes (Bld) [#/Vol] 0.6 10*3/uL Low 1.2-3.4 [facility] Comment on above: Performed By: #### A CBC, BMPF #### Testing performed at [address] [place] [address] Lymphocytes/100 WBC (Bld) 5.9 % Low 20.0-55.0 [facility] Comment on above: Performed By: #### A CBC, BMPF #### Testing performed at [address] [place] [address] Monocytes (Bld) [#/Vol] 0.8 10*3/uL High 0.0-0.7 [facility] Comment on above: Performed By: #### A CBC, BMPF #### Testing performed at [address] [place] [address] Monocytes/100 WBC (Bld) 8.3 % Normal 0.0-10.0 [facility] Comment on above: Performed By: #### A CBC, BMPF #### Testing performed at [address] [place] [address] Neutrophils/100 WBC (Bld) 85.8 % High 37.0-75.0 [facility] Comment on above: Performed By: #### A CBC, BMPF #### Testing performed at [address] [place] [address] Erythrocyte distribution width (RBC) [Ratio] 14.5 % Normal 11.5-14.5 [facility] Comment on above: Performed By: #### A CBC, BMPF #### Testing performed at [address] [place] [address] Hematocrit (Bld) [Volume fraction] 31.8 % Low 36.0-48.0 [facility] Comment on above: Performed By: #### A CBC, BMPF #### Testing performed at [address] [place] [address] Hemoglobin (Bld) [Mass/Vol] 10.6 g/dL Low 12.0-16.0 [facility] Comment on above: Performed By: #### A CBC, BMPF #### Testing performed at [address] [place] [address] MCH (RBC) [Entitic mass] 31.9 pg Normal 26.0-35.0 [facility] Comment on above: Performed By: #### A CBC, BMPF #### Testing performed at [address] [place] [address] MCHC (RBC) [Mass/Vol] 33.2 g/dL Normal 27.0-37.0 [facility] Comment on above: Performed By: #### A CBC, BMPF #### Testing performed at [address] [address] MCV (RBC) [Entitic vol] 95.9 fL Normal 80.0-100.0 [facility] Comment on above: Performed By: #### A CBC, BMPF #### Testing performed at [address] [address] Platelet mean volume (Bld) [Entitic vol] 8.1 fL Normal 7.4-11.0 [facility] Comment on above: Performed By: #### A CBC, BMPF #### Testing performed at [address] [address] Platelets (Bld) [#/Vol] 228 10*3/uL Normal 130-400 [facility] Comment on above: Performed By: #### A CBC, BMPF #### Testing performed at [address] [address] RBC (Bld) [#/Vol] 3.31 10*6/uL Low 4.0-5.4 [facility] Comment on above: Performed By: #### A CBC, BMPF #### Testing performed at [address] [address] WBC (Bld) [#/Vol] 10.0 10*3/uL Normal 3.6-11.0 [facility] Comment on above: Performed By: #### A CBC, BMPF #### Testing performed at [address] [address] CBC, EDIF, PLATELETon 2023 ABSOLUTE BASOPHIL COUNT 0.0 10*3/uL 0.0 - 0.2 10*3/uL [facility] Basophils/100 WBC (Bld) 0.0 % 0.0 - 2.0 % [facility] Differential cell count method Nom (Bld) AUTO DIFF % [facility] Eosinophils (Bld) [#/Vol] 0.0 10*3/uL 0.0 - 0.7 10*3/uL [facility] Eosinophils/100 WBC (Bld) 0.0 % 0.0 - 11.0 % [facility] Erythrocyte distribution width (RBC) [Ratio] 14.5 % 11.5 - 14.5 % [facility] Hematocrit (Bld) [Volume fraction] 31.8 % Low 36.0 - 48.0 % [facility] Hemoglobin (Bld) [Mass/Vol] 10.6 g/dL Low [facility] Interpretation and review of laboratory results Abnormal [facility] Lymphocytes (Bld) [#/Vol] 0.6 10*3/uL Low 1.2 - 3.4 10*3/uL [facility] Lymphocytes/100 WBC (Bld) 5.9 % Low 20.0 - 55.0 % [facility] MCH (RBC) [Entitic mass] 31.9 pg 26.0 - 35.0 PG [facility] MCHC (RBC) [Mass/Vol] 33.2 g/dL [facility] MCV (RBC) [Entitic vol] 95.9 fL [facility] Monocytes (Bld) [#/Vol] 0.8 10*3/uL High 0.0 - 0.7 10*3/uL [facility] Monocytes/100 WBC (Bld) 8.3 % 0.0 - 10.0 % [facility] Neutrophils (Bld) [#/Vol] 8.6 10*3/uL High 1.4 - 6.5 10*3/uL [facility] Neutrophils/100 WBC (Bld) 85.8 % High 37.0 - 75.0 % [facility] Platelet mean volume (Bld) [Entitic vol] 8.1 fL [facility] Platelets (Bld) [#/Vol] 228 10*3/uL 130 - 400 10*3/uL [facility] RBC (Bld) [#/Vol] 3.31 10*6/uL Low 4.0 - 5.4 10*6/uL [facility] WBC (Bld) [#/Vol] 10.0 10*3/uL 3.6 - 11.0 10*3/uL [facility] ECGOrdered By: Thom estevez on 01-13-2024 [facility] Work Phone: TROPONIN I, HIGH SENSITIVITY on 01-13-2024 Interpretation and review of laboratory results Abnormal [facility] TROPONIN I, HIGH SENSITIVITY 14 pg/mL High 0 - 12 pg/mL [facility] Comment on above: Indeterminant: >12 to 100 pg/mL female >20 to 100 pg/mL male Indicative of myocardial injury. Serial sampling is recommended, a change of greater than or equal to 20 pg/mL is indicative of acute coronary syndrome. [facility] TROPONIN I, HIGH SENSITIVITY 14 pg/mL High 0-12 [facility] Comment on above: Result Comment: Indeterminant: >12 to 100 pg/mL female >20 to 100 pg/mL male Indicative of myocardial injury. Serial sampling is recommended, a change of greater than or equal to 20 pg/mL is indicative of acute coronary syndrome. Performed By: #### U GRUPO, UMAC #### Testing performed at [address] [address] TROPONIN I, HIGH SENSITIVITY 10 pg/mL 0 - 12 pg/mL [facility] Comment on above: Indeterminant: >12 to 100 pg/mL female >20 to 100 pg/mL male Indicative of myocardial injury. Serial sampling is recommended, a change of greater than or equal to 20 pg/mL is indicative of acute coronary syndrome. [facility] TROPONIN I, HIGH SENSITIVITY 10 pg/mL Normal [address] [place] [address] Comment on above: Result Comment: Indeterminant: >12 to 100 pg/mL female >20 to 100 pg/mL male Indicative of myocardial injury. Serial sampling is recommended, a change of greater than or equal to 20 pg/mL is indicative of acute coronary syndrome. Performed By: #### [facility] #### Testing performed at [address] [address] TROPONIN I, HIGH SENSITIVITY 9 pg/mL 0 - 12 pg/mL [facility] Comment on above: Indeterminant: >12 to 100 pg/mL female >20 to 100 pg/mL male Indicative of myocardial injury. Serial sampling is recommended, a change of greater than or equal to 20 pg/mL is indicative of acute coronary syndrome. [facility] TROPONIN I, HIGH SENSITIVITY 9 pg/mL Normal [address] [place] [address] Comment on above: Result Comment: Indeterminant: >12 to 100 pg/mL female >20 to 100 pg/mL male Indicative of myocardial injury. Serial sampling is recommended, a change of greater than or equal to 20 pg/mL is indicative of acute coronary syndrome. Performed By: #### U GRUPO, UMAC #### Testing performed at [facility] [address] [place] [address] XR PELVIS 1-2 VIEWSon 2023 XR PELVIS [...] Postsurgical findings of left hip arthroplasty. Normal [facility] XR Pelvis 2 Viewson 01-13-20 [...] IMPRESSION: Postsurgical findings of left hip arthroplasty. [facility] XR Pelvis 2 ViewsOrdered By: Eyad Aldridge on 01-13-[address] [facility] Work Phone: BASIC METABOLIC PANELon 12-18 Anion gap [Moles/Vol] 9 mmol/L MMOL/L [employer] Calcium [Mass/Vol] 9.1 mg/dL [facility] Chloride [Moles/Vol] 105 mmol/L [facility] [employer] Comment on above: Please note: Triglyc eride levels of 600mg/dL or higher may positively bias chloride results by approximately 2.1 mmol CO2 [Moles/Vol] 24 mmol/L [facility] Creatinine [Mass/Vol] 0.70 mg/dL [facility] GFR COMMENT Average GFR for 70+ years old = 75. [facility] Comment on above: Chronic Kidney disea se, GFR = <60. Kidney failure, GFR = <15. The GFR estimate is not adjusted for extreme body surface area or acute process, nor has it been validated for women or ethnic groups other than and . GFR/1.73 sq M.predicted among blacks MDRD (S/P/Bld) [Vol rate/Area] 103 mL/min/{1.73_m2} ml/min/1.73sq .m [facility] GFR/1.73 sq M.predicted among non-blacks MDRD (S/P/Bld) [Vol rate/Area] 85 mL/min/{1.73_m2} ml/min/1.73sq .m [facility] Glucose post fast [Mass/Vol] 179 mg/dL High [facility] Comment on above: NORMAL <100 mg/dL PREDIABETES 101-126 mg/dL DIABETES 126 mg/dL or higher Interpretation and review of laboratory results Abnormal [facility] Potassium [Moles/Vol] 4.0 mmol/L [facility] Sodium [Moles/Vol] 138 mmol/L [facility] Urea nitrogen [Mass/Vol] 16 mg/dL [facility] BMP FASTINGon 01-12-2024 Anion gap [Moles/Vol] 9 mmol/L Normal [facility] Comment on above: Performed By: #### U GRUPO, UMAC #### Testing performed at [address] [address] Calcium [Mass/Vol] 9.1 mg/dL Normal 8.4-10.2 [facility] Comment on above: Performed By: #### U GRUPO, UMAC #### Testing performed at [address] [address] Chloride [Moles/Vol] 105 mmol/L Normal 98-107 [facility] Comment on above: Result Comment: Plea se note: Triglyceride levels of 600mg/dL or higher may positively bias chloride results by approximately 2.1 mmol Performed By: #### U GRUPO, UMAC #### Testing performed at [address] [address] CO2 [Moles/Vol] 24 mmol/L Normal 22-30 [facility] Comment on above: Performed By: #### U GRUPO, UMAC #### Testing performed at [address] [address] Creatinine [Mass/Vol] 0.70 mg/dL Normal 0.70-1.20 [facility] Comment on above: Performed By: #### U GRUPO, UMAC #### Testing performed at [address] [address] EST. GFR, 103 ml/min/1.73sq.m [facility] Comment on above: Performed By: #### U GRUPO, UMAC #### Testing performed at [address] [address] EST. GFR,Non 85 ml/min/1.73sq.m [facility] Comment on above: Performed By: #### U GRUPO, UMAC #### Testing performed at [address] [place] [address] GFR Information Average GFR for 70+ years old = 75. Normal [facility] Comment on above: Result Comment: Director Of [employer]gr[employer] aviva Kidney disease, GFR = <60. Kidney failure, GFR = <15. The GFR estimate is not adjusted for extreme body surface area or acute process, nor has it been validated for women or ethnic groups other than and . Performed By: #### U GRUPO, UMAC #### Testing performed at [address] [address] Glucose [Mass/Vol] 179 mg/dL High 70-100 [facility] Comment on above: Result Comment: NORMAL <100 mg/dL PREDIABETES 101-126 mg/dL DIABETES 126 mg/dL or higher Performed By: #### U GRUPO, UMAC #### Testing performed at [address] [address] Potassium [Moles/Vol] 4.0 mmol/L Normal 3.5-5.1 [facility] Comment on above: Performed By: #### U GRUPO, UMAC #### Testing performed at [address] [address] Sodium [Moles/Vol] 138 mmol/L Normal 137-145 [facility] Comment on above: Performed By: #### U GRUPO, UMAC #### Testing performed at [address] [address] Urea nitrogen [Mass/Vol] 16 mg/dL Normal 7-20 [facility] Comment on above: Performed By: #### U GRUPO, UMAC #### Testing performed at [address] [address] CBCon 01-12-2024 ABSOLUTE BAS 0.0 10*3/uL Normal 0.0-0.2 [facility] Comment on above: Performed By: #### U GRUPO, UMAC #### Testing performed at [address] [address] ABSOLUTE EOS 0.0 10*3/uL Normal 0.0-0.7 [facility] Comment on above: Performed By: #### U GRUPO, UMAC #### Testing performed at [address] [address] ABSOLUTE NEUTROPHIL COUNT 9.4 10*3/uL High 1.4-6.5 [facility] Comment on above: Performed By: #### U GRUPO, UMAC #### Testing performed at [address] [address] Basophils/100 WBC (Bld) 0.1 % Normal 0.0-2.0 [facility] Comment on above: Performed By: #### U GRUPO, UMAC #### Testing performed at [address] [address] DTYPE AUTO DIFF Normal [facility] Comment on above: Performed By: #### U GRUPO, UMAC #### Testing performed at [address] [address] Eosinophils/100 WBC (Bld) 0.0 % Normal 0.0-11.0 [facility] Comment on above: Performed By: #### U GRUPO, UMAC #### Testing performed at [address] [address] Lymphocytes (Bld) [#/Vol] 0.6 10*3/uL Low 1.2-3.4 [facility] Comment on above: Performed By: #### U GRUPO, UMAC #### Testing performed at [address] [address] Lymphocytes/100 WBC (Bld) 5.9 % Low 20.0-55.0 [facility] Comment on above: Performed By: #### U GRUPO, UMAC #### Testing performed at [address] [address] Monocytes (Bld) [#/Vol] 0.5 10*3/uL Normal 0.0-0.7 [facility] Comment on above: Performed By: #### U GRUPO, UMAC #### Testing performed at [address] [address] Monocytes/100 WBC (Bld) 4.5 % Normal 0.0-10.0 [facility] Comment on above: Performed By: #### U GRUPO, UMAC #### Testing performed at [address] [address] Neutrophils/100 WBC (Bld) 89.5 % High 37.0-75.0 [facility] Comment on above: Performed By: #### U GRUPO, UMAC #### Testing performed at [address] [address] Erythrocyte distribution width (RBC) [Ratio] 14.3 % Normal 11.5-14.5 [facility] Comment on above: Performed By: #### U GRUPO, UMAC #### Testing performed at [address] [address] Hematocrit (Bld) [Volume fraction] 33.3 % Low 36.0-48.0 [facility] Comment on above: Performed By: #### U GRUPO, UMAC #### Testing performed at [address] [address] Hemoglobin (Bld) [Mass/Vol] 10.9 g/dL Low 12.0-16.0 [facility] Comment on above: Performed By: #### U GRUPO, UMAC #### Testing performed at [address] [address] MCH (RBC) [Entitic mass] 31.4 pg Normal 26.0-35.0 [facility] Comment on above: Performed By: #### U GRUPO, UMAC #### Testing performed at [address] [address] MCHC (RBC) [Mass/Vol] 32.8 g/dL Normal 27.0-37.0 [facility] Comment on above: Performed By: #### U GRUPO, UMAC #### Testing performed at [address] [address] MCV (RBC) [Entitic vol] 95.7 fL Normal 80.0-100.0 [facility] Comment on above: Performed By: #### U GRUPO, UMAC #### Testing performed at [address] [address] Platelet mean volume (Bld) [Entitic vol] 8.2 fL Normal 7.4-11.0 [facility] Comment on above: Performed By: #### U GRUPO, UMAC #### Testing performed at [address] [address] Platelets (Bld) [#/Vol] 247 10*3/uL Normal 130-400 [facility] Comment on above: Performed By: #### U GRUPO, UMAC #### Testing performed at [address] [address] RBC (Bld) [#/Vol] 3.48 10*6/uL Low 4.0-5.4 [facility] Comment on above: Performed By: #### U GRUPO, UMAC #### Testing performed at [address] [address] WBC (Bld) [#/Vol] 10.5 10*3/uL Normal 3.6-11.0 [facility] Comment on above: Performed By: #### U GRUPO, UMAC #### Testing performed at [address] [address] CBC, EDIF, PLATELETon 2023 ABSOLUTE BASOPHIL COUNT 0.0 10*3/uL 0.0 - 0.2 10*3/uL [facility] Basophils/100 WBC (Bld) 0.1 % 0.0 - 2.0 % [facility] Differential cell count method Nom (Bld) AUTO DIFF % [facility] Eosinophils (Bld) [#/Vol] 0.0 10*3/uL 0.0 - 0.7 10*3/uL [facility] Eosinophils/100 WBC (Bld) 0.0 % 0.0 - 11.0 % [facility] Erythrocyte distribution width (RBC) [Ratio] 14.3 % 11.5 - 14.5 % [facility] Hematocrit (Bld) [Volume fraction] 33.3 % Low 36.0 - 48.0 % [facility] Hemoglobin (Bld) [Mass/Vol] 10.9 g/dL Low [facility] Interpretation and review of laboratory results Abnormal [facility] Lymphocytes (Bld) [#/Vol] 0.6 10*3/uL Low 1.2 - 3.4 10*3/uL [facility] Lymphocytes/100 WBC (Bld) 5.9 % Low 20.0 - 55.0 % [facility] MCH (RBC) [Entitic mass] 31.4 pg 26.0 - 35.0 PG [facility] MCHC (RBC) [Mass/Vol] 32.8 g/dL [facility] MCV (RBC) [Entitic vol] 95.7 fL [facility] Monocytes (Bld) [#/Vol] 0.5 10*3/uL 0.0 - 0.7 10*3/uL [facility] Monocytes/100 WBC (Bld) 4.5 % 0.0 - 10.0 % [facility] Neutrophils (Bld) [#/Vol] 9.4 10*3/uL High 1.4 - 6.5 10*3/uL [facility] Neutrophils/100 WBC (Bld) 89.5 % High 37.0 - 75.0 % [facility] Platelet mean volume (Bld) [Entitic vol] 8.2 fL [facility] Platelets (Bld) [#/Vol] 247 10*3/uL 130 - 400 10*3/uL [facility] RBC (Bld) [#/Vol] 3.48 10*6/uL Low 4.0 - 5.4 10*6/uL [facility] WBC (Bld) [#/Vol] 10.5 10*3/uL 3.6 - 11.0 10*3/uL [facility] GENERAL PROCEDUREOrdered By: Vj Alvarez on 01-11-2024 [facility] Work Phone: Radiology Study observation (narrative) [facility] Work Phone: PROTIMEon 01-11-2024 INR Coag (PPP) [Relative time] 1.09 {INR} Normal 0.85-1.10 [facility] Comment on above: Result Comment: 2.0-3.0 THERAPEUTIC RANGE 2.5-3.5 MECHANICAL VALVE RANGE Performed By: #### P T #### Testing performed at [address] [address] PT Coag (PPP) [Time] 14.2 s Normal 11.8-14.4 [facility] Comment on above: Performed By: #### P T #### Testing performed at [address] [address] PROTIME-INRon 01-11-2024 INR Coag (PPP) [Relative time] 1.09 {INR} 0.85 - 1.10 [facility] Comment on above: 2.0-3.0 THERAPEUTIC RANGE 2.5-3.5 MECHANICAL VALVE RANGE PT Coag (PPP) [Time] 14.2 s [facility] REPEAT ABO/RHon 01-11-2024 REPEAT ABO/RH Positive Normal [facility] Comment on above: Performed By: #### U GRUPO, UMAC #### Testing performed at [address] [address] REPEAT ABO/RH (D) TYPINGon 0 01-11-2024 ABO and Rh group Nom (Bld ) Positive [facility] XR Pelvis 2 Viewson 01-11-20 Radiology Study observation (narrative) [facility] 36on 01-10-2024 36 Regarding echo from 12/29/2023: MD Amairani Corrales MA Patient echo is overall normal. Therefore she can proceed with surgery from cardiac point of view with necessary anesthesia. She is considered to be at low risk for perioperative cardiac events. Thank you Dr Kim Suarez faxed to Dr. Heredia's office. Normal [facility] Office Visiton 12-22-2023 Follow-up visit [id number] Cuate Goodman 1940 F Date Provider Department Center 12/22/2023 [id number]-RNXIEECEFERINO QUIÑONEZ BH CARD [facility] Family History Problem Relation Age of Onset Lung cancer Mother Heart disease Father Other Father Prostate cancer Father Family Status - Relation Status Age at Mother Father Level of Service:73537 [facility] OFFICE/OUTPATIENT NEW MODERATE MDM 45 MINUTES Normal [facility] URINE CULTUREon 12-18-2023 Bacteria identified Cx Nom (U) SPECIMEN DESCRIPTION URINE CLEAN CATCH UA DIPSTICK LEUKOCYTE POSITIVE * Result Note: NITRITE POSITIVE * COLONY COUNT >100,000 C/C/ML CULTURE KLEBSIELLA PNEUMONIAE * Result Note: Testing performed at [place], [place] [address] * REPORT STATUS 12/18/2023 * Result Note: [...] CEFEPIME <=1 SUSCEPTIBLE CEFTAZIDIME <=1 SUSCEPTIBLE Normal [facility] Comment on above: Performed By: #### A URNC #### Testing performed at [facility] [address] [place] [address] Testing performed at [facility] [address] [place] [address] CBCon 12-16-2023 ABSOLUTE BAS 0.1 10*3/uL Normal 0.0-0.2 [facility] Comment on above: Performed By: #### U GRUPO, UMAC #### Testing performed at [address] [address] ABSOLUTE EOS 0.1 10*3/uL Normal 0.0-0.7 [facility] Comment on above: Performed By: #### U GRUPO, UMAC #### Testing performed at [address] [place] [address] ABSOLUTE NEUTROPHIL COUNT 3.5 10*3/uL Normal 1.4-6.5 [facility] Comment on above: Performed By: #### U GRUPO, UMAC #### Testing performed at [address] [address] Basophils/100 WBC (Bld) 0.9 % Normal 0.0-2.0 [facility] Comment on above: Performed By: #### U GRUPO, UMAC #### Testing performed at [address] [address] DTYPE AUTO DIFF Normal [facility] Comment on above: Performed By: #### U GRUPO, UMAC #### Testing performed at [address] [address] Eosinophils/100 WBC (Bld) 1.8 % Normal 0.0-11.0 [facility] Comment on above: Performed By: #### U GRUPO, UMAC #### Testing performed at [address] [address] Lymphocytes (Bld) [#/Vol] 1.4 10*3/uL Normal 1.2-3.4 [facility] Comment on above: Performed By: #### U GRUPO, UMAC #### Testing performed at [address] [place] [address] Lymphocytes/100 WBC (Bld) 25.0 % Normal 20.0-55.0 [facility] Comment on above: Performed By: #### U GRUPO, UMAC #### Testing performed at [address] [address] Monocytes (Bld) [#/Vol] 0.5 10*3/uL Normal 0.0-0.7 [facility] Comment on above: Performed By: #### U GRUPO, UMAC #### Testing performed at [address] [address] Monocytes/100 WBC (Bld) 9.1 % Normal 0.0-10.0 [facility] Comment on above: Performed By: #### U GRUPO, UMAC #### Testing performed at [address] [address] Neutrophils/100 WBC (Bld) 63.2 % Normal 37.0-75.0 [facility] Comment on above: Performed By: #### U GRUPO, UMAC #### Testing performed at [address] [address] Erythrocyte distribution width (RBC) [Ratio] 14.9 % High 11.5-14.5 [facility] Comment on above: Performed By: #### U GRUPO, UMAC #### Testing performed at [address] [address] Hematocrit (Bld) [Volume fraction] 39.2 % Normal 36.0-48.0 [facility] Comment on above: Performed By: #### U GRUPO, UMAC #### Testing performed at [address] [address] Hemoglobin (Bld) [Mass/Vol] 12.8 g/dL Normal 12.0-16.0 [facility] Comment on above: Performed By: #### U GRUPO, UMAC #### Testing performed at [address] [address] MCH (RBC) [Entitic mass] 31.1 pg Normal 26.0-35.0 [facility] Comment on above: Performed By: #### U GRUPO, UMAC #### Testing performed at [address] [address] MCHC (RBC) [Mass/Vol] 32.6 g/dL Normal 27.0-37.0 [facility] Comment on above: Performed By: #### U GRUPO, UMAC #### Testing performed at [address] [address] MCV (RBC) [Entitic vol] 95.4 fL Normal 80.0-100.0 [facility] Comment on above: Performed By: #### U GRUPO, UMAC #### Testing performed at [address] [place] [address] Platelet mean volume (Bld) [Entitic vol] 8.8 fL Normal 7.4-11.0 [facility] Comment on above: Performed By: #### U GRUPO, UMAC #### Testing performed at [address] [address] Platelets (Bld) [#/Vol] 298 10*3/uL Normal 130-400 [facility] Comment on above: Performed By: #### U GRUPO, UMAC #### Testing performed at [address] [address] RBC (Bld) [#/Vol] 4.11 10*6/uL Normal 4.0-5.4 [facility] Comment on above: Performed By: #### U GRUPO, UMAC #### Testing performed at [address] [address] WBC (Bld) [#/Vol] 5.6 10*3/uL Normal 3.6-11.0 [facility] Comment on above: Performed By: #### U GRUPO, UMAC #### Testing performed at [address] [address] CMP FASTINGon 12-16-2023 A:G RATIO 1.3 RATIO Normal [facility] Comment on above: Performed By: #### U GRUPO, UMAC #### Testing performed at [address] [address] ALBUMIN 4.0 G/dl Normal 3.5-5.0 [facility] Comment on above: Performed By: #### U GRUPO, UMAC #### Testing performed at [address] [place] [address] ALP [Catalytic activity/Vol] 89 U/L Normal 38-126 [facility] Comment on above: Performed By: #### U GRUPO, UMAC #### Testing performed at [address] [place] [address] ALT [Catalytic activity/Vol] 16 U/L Normal <35 [facility] Comment on above: Performed By: #### U GRUPO, UMAC #### Testing performed at [address] [address] AST [Catalytic activity/Vol] 25 U/L Normal 14-36 [facility] Comment on above: Performed By: #### U GRUPO, UMAC #### Testing performed at [address] [address] Bilirubin [Mass/Vol] 0.3 mg/dL Normal 0.2-1.3 [facility] Comment on above: Performed By: #### U GRUPO, UMAC #### Testing performed at [address] [address] Calcium [Mass/Vol] 9.9 mg/dL Normal 8.4-10.2 [facility] Comment on above: Performed By: #### U GRUPO, UMAC #### Testing performed at [address] [address] Chloride [Moles/Vol] 107 mmol/L Normal 98-107 [facility] Comment on above: Result Comment: Shonda matthews note: Triglyceride levels of 600mg/dL or higher may positively bias chloride results by approximately 2.1 mmol Performed By: #### U GRUPO, UMAC #### Testing performed at [address] [address] CO2 [Moles/Vol] 28 mmol/L Normal 22-30 [facility] Comment on above: Performed By: #### U GRUPO, UMAC #### Testing performed at [address] [address] Creatinine [Mass/Vol] 0.80 mg/dL Normal 0.70-1.20 [facility] Comment on above: Performed By: #### U GRUPO, UMAC #### Testing performed at [address] [place] [address] EST. GFR, 89 ml/min/1.73sq.m [facility] Comment on above: Performed By: #### U GRUPO, UMAC #### Testing performed at [address] [place] [address] EST. GFR,Non 73 ml/min/1.73sq.m [facility] Comment on above: Performed By: #### U GRUPO, UMAC #### Testing performed at [address] [address] GFR Information Average GFR for 70+ years old = 75. Normal [facility] Comment on above: Result Comment: Director Of [employer]gr[employer] aviva Kidney disease, GFR = <60. Kidney failure, GFR = <15. The GFR estimate is not adjusted for extreme body surface area or acute process, nor has it been validated for women or ethnic groups other than and . Performed By: #### U GRUPO, UMAC #### Testing performed at [address] [address] Glucose [Mass/Vol] 115 mg/dL High 70-100 [facility] Comment on above: Result Comment: NORMAL <100 mg/dL PREDIABETES 101-126 mg/dL DIABETES 126 mg/dL or higher Performed By: #### U GRUPO, UMAC #### Testing performed at [address] [address] Potassium [Moles/Vol] 4.0 mmol/L Normal 3.5-5.1 [facility] Comment on above: Performed By: #### U GRUPO, UMAC #### Testing performed at [address] [address] Protein [Mass/Vol] 7.2 g/dL Normal 6.3-8.2 [facility] Comment on above: Performed By: #### U GRUPO, UMAC #### Testing performed at [address] [address] Sodium [Moles/Vol] 140 mmol/L Normal 137-145 [facility] Comment on above: Performed By: #### U GRUPO, UMAC #### Testing performed at [address] [address] Urea nitrogen [Mass/Vol] 19 mg/dL Normal 7-20 [facility] Comment on above: Performed By: #### U GRUPO, UMAC #### Testing performed at [address] [address] HEMOGLOBIN A1Con 12-16-2023 Glucose [Mass/Vol] 117 mg/dL Normal [facility] Comment on above: Performed By: #### H A1CT #### Testing performed at [facility] [place] [facility] [address] [place] [address] HbA1c (Bld) [Mass fraction] 5.7 % Normal 0-6 [facility] Comment on above: Result Comment: NORMAL <5.7% PREDIABETES 5.7-6.4% DIABETES 6.5% OR HIGHER Performed By: #### H A1CT #### Testing performed at [address] [address] MRSA SCREENon 12-16-2023 MRSA DNA SMILEY+probe Ql (Unsp spec) Negative Normal NEGATIVE [facility] Comment on above: Performed By: #### M RSAST #### Testing performed at [address] [address] STAPH AUREUS SCREEN Positive Abnormal NEGATIVE [facility] Comment on above: Result Comment: TEST ING PERFORMED BY PCR Performed By: #### M RSAST #### Testing performed at [address] [address] PROTIMEon 12-16-2023 INR Coag (PPP) [Relative time] 1.47 {INR} High 0.85-1.10 [facility] Comment on above: Result Comment: 2.0-3.0 THERAPEUTIC RANGE 2.5-3.5 MECHANICAL VALVE RANGE Performed By: #### U GRUPO, UMAC #### Testing performed at [address] [address] PT Coag (PPP) [Time] 17.9 s High 11.8-14.4 [facility] Comment on above: Performed By: #### U GRUPO, UMAC #### Testing performed at [address] [address] TYPE AND SCREEN CROSSMATCH C ONVERTIBLEon 12-16-2023 TYPE AND SCREEN CROSSMATCH CONVERTIBLE WORKUP EXPIRES 01/13/2024,2359 ABO/RH(D) O POSITIVE ANTIBODY SCREEN NEGATIVE ARM BAND NUMBER [id number] Normal [facility] Comment on above: Performed By: #### U GRUPO, UMAC #### Testing performed at [address] [place] [address] URINE MACROSCOPICon 12-16-19 24 Bilirubin Ql (U) Negative Normal NEGATIVE [facility] Comment on above: Performed By: #### U GRUPO, UMAC #### Testing performed at [address] [address] Clarity (U) SLIGHTLY CLOUDY Abnormal CLEAR [facility] Comment on above: Performed By: #### U GRUPO, UMAC #### Testing performed at [address] [address] Color (U) YELLOW Normal YELLOW [facility] Comment on above: Performed By: #### U GRUPO, UMAC #### Testing performed at [address] [address] Glucose Ql (U) Negative Normal NEGATIVE [facility] Comment on above: Performed By: #### U GRUPO, UMAC #### Testing performed at [address] [address] pH (U) 5.5 [pH] Normal 5.0-7.0 [facility] Comment on above: Performed By: #### U GRUPO, UMAC #### Testing performed at [address] [address] Protein (U) [Mass/Vol] 30 mg/dL Abnormal NEGATIVE [facility] Comment on above: Performed By: #### U GRUPO, UMAC #### Testing performed at [address] [address] URINE HEMOGLOBIN MODERATE Abnormal NEGATIVE [facility] Comment on above: Performed By: #### U GRUPO, UMAC #### Testing performed at [address] [address] URINE KETONE Negative Normal NEGATIVE [facility] Comment on above: Performed By: #### U GRUPO, UMAC #### Testing performed at [address] [address] URINE LEUKOTEST SMALL Abnormal NEGATIVE [facility] Comment on above: Performed By: #### U GRUPO, UMAC #### Testing performed at [address] [address] URINE NITRATES Positive Abnormal NEGATIVE [facility] Comment on above: Performed By: #### U GRUPO, UMAC #### Testing performed at [address] [address] URINE SPEC GRAVITY 1.025 Normal 1.010-1.025 [facility] Comment on above: Performed By: #### U GRUPO, UMAC #### Testing performed at [address] [place] [address] Urobilinogen Qn (U) 0.2 {Monique'U}/dL Normal 0.2-1.0 [facility] Comment on above: Performed By: #### U GRUPO, UMAC #### Testing performed at [address] [address] URINE MICROSCOPICon 12-16-19 24 BACTERIA 3+ Abnormal NEGATIVE [facility] Comment on above: Performed By: #### U GRUPO, UMAC #### Testing performed at [address] [address] CASTS NONE Normal NONE [facility] Comment on above: Performed By: #### U GRUPO, UMAC #### Testing performed at [address] [place] [address] CRYSTAL NONE Normal NONE [facility] Comment on above: Performed By: #### U GRUPO, UMAC #### Testing performed at [address] [address] Epithelial cells LM Ql (Urine sed) 1 TO 5 Normal [facility] Comment on above: Performed By: #### U GRUPO, UMAC #### Testing performed at [address] [address] Mucus Ql (Urine sed) Negative Normal NEGATIVE [facility] Comment on above: Performed By: #### U GRUPO, UMAC #### Testing performed at [address] [place] [address] URINE COMMENT REFLEX CULTURE PER ESTABLISHED CRITERIA. Normal [facility] Comment on above: Performed By: #### U GRUPO, UMAC #### Testing performed at [address] [place] [address] URINE RBC'S 1 TO 5 Normal NEGATIVE [facility] Comment on above: Performed By: #### U GRUPO, UMAC #### Testing performed at [address] [place] [address] URINE WBC'S TOO NUMEROUS TO COUNT Abnormal NEGATIVE [facility] Comment on above: Performed By: #### U GRUPO, UMAC #### Testing performed at [address] [address] CBC AND AUTO DIFFon 09-18-19 24 ABSOLUTE BASOPHIL 0.1 X10E9/L Normal 0.0-0.2 [facility] Comment on above: Performed By: #### C BCA, CMP, 50415-1, 01931-8, 3084-1, 3016- 3, 3024-7, 3051-0, 2284-8, 2132-03 #### [facility] ([id number]) [address], [address] [place] [address] ABSOLUTE NEUTROPHIL 4.0 X10E9/L Normal 1.5-6.6 [facility] Comment on above: Performed By: #### C BCA, CMP, 51820-9, 40145-5, 3084-1, 3016- 3, 3024-7, 3051-0, 2284-8, 2132-03 #### [facility] ([id number]) [address], [address] [place] [address] Basophils/100 WBC (Bld) 1.0 % Normal [facility] Comment on above: Performed By: #### C BCA, CMP, 95678-2, 18971-5, 3084-1, 3016- 3, 3024-7, 3051-0, 2284-8, 2132-03 #### [facility] ([id number]) [address], [address] [place] [address] Eosinophils (Bld) [#/Vol] 0.1 10*3/uL Normal 0.0-0.4 [facility] Comment on above: Performed By: #### C BCA, CMP, 96865-9, 01089-8, 3084-1, 3016- 3, 3024-7, 3051-0, 2284-8, 2132-03 #### [facility] ([id number]) [address], [address] [place] [address] Eosinophils/100 WBC (Bld) 1.8 % Normal [facility] Comment on above: Performed By: #### C BCA, CMP, 30657-4, 26392-9, 3084-1, 3016- 3, 3024-7, 3051-0, 2284-8, 2132-03 #### [facility] ([id number]) [address], [address] [place] [address] Erythrocyte distribution width (RBC) [Ratio] 15.2 % High 11.5-15.0 [facility] Comment on above: Performed By: #### C BCA, CMP, 99012-1, 36015-5, 3084-1, 3016- 3, 3024-7, 3051-0, 2284-8, 2132-03 #### [facility] ([id number]) [address], [address] [place] [address] Hematocrit (Bld) [Volume fraction] 36.9 % Normal 35-47 [facility] Comment on above: Performed By: #### C BCA, CMP, 45548-7, 60953-9, 3084-1, 3016- 3, 3024-7, 3051-0, 2284-8, 2132-03 #### [facility] ([id number]) [address], [address] [place] [address] Hemoglobin (Bld) [Mass/Vol] 12.3 g/dL Normal 11.7-15.5 [facility] Comment on above: Performed By: #### C BCA, CMP, 40922-5, 87369-9, 3084-1, 3016- 3, 3024-7, 3051-0, 2284-8, 2132-03 #### [facility] ([id number]) [address], [address] [place] [address] Lymphocytes (Bld) [#/Vol] 1.5 10*3/uL Normal 1.0-3.5 [facility] Comment on above: Performed By: #### C BCA, CMP, 38540-0, 61173-2, 3084-1, 3016- 3, 3024-7, 3051-0, 2284-8, 2131-9 #### [facility] ([id number]) [address], [address] [place] [address] Lymphocytes/100 WBC (Bld) 23.4 % Normal [facility] Comment on above: Performed By: #### C BCA, CMP, 41491-1, 83807-5, 3084-1, 3016- 3, 3024-7, 3051-0, 2284-8, 2132-03 #### [facility] ([id number]) [address], [address] [place] [address] MCH (RBC) [Entitic mass] 30.8 pg Normal 27-34 [facility] Comment on above: Performed By: #### C BCA, CMP, 07285-8, 98503-8, 3084-1, 3016- 3, 3024-7, 3051-0, 2284-8, 2132-03 #### [facility] ([id number]) [address], [address] [place] [address] MCHC (RBC) [Mass/Vol] 33.3 g/dL Normal 32-36 [facility] Comment on above: Performed By: #### C BCA, CMP, 04355-0, 68489-7, 3084-1, 3016- 3, 3024-7, 3051-0, 2284-8, 2132-03 #### [facility] ([id number]) [address], [address] [place] [address] MCV (RBC) [Entitic vol] 93 fL Normal 80-100 [facility] Comment on above: Performed By: #### C BCA, CMP, 45336-2, 22084-8, 3084-1, 3016- 3, 3024-7, 3051-0, 2284-8, 2131-9 #### [facility] ([id number]) [address], [address] [place] [address] Monocytes (Bld) [#/Vol] 0.6 10*3/uL Normal 0-0.9 [facility] Comment on above: Performed By: #### C BCA, CMP, 70173-6, 84001-0, 3084-1, 3016- 3, 3024-7, 3051-0, 2284-8, 2131-9 #### [facility] ([id number]) [address], [address] [place] [address] Monocytes/100 WBC (Bld) 9.2 % Normal [facility] Comment on above: Performed By: #### C BCA, CMP, 54065-1, 53693-6, 3084-1, 3016- 3, 3024-7, 3051-0, 2284-8, 2131- #### [facility] ([id number]) [address], [address] [place] [address] Neutrophils/100 WBC (Bld) 64.6 % Normal [facility] Comment on above: Performed By: #### C BCA, CMP, 60884-6, 36277-8, 3084-1, 3016- 3, 3024-7, 3051-0, 2284-8, 2132-03 #### [facility] ([id number]) [address], [address] [place] [address] Platelet mean volume (Bld) [Entitic vol] 8.0 fL Normal 7-12 [facility] Comment on above: Performed By: #### C BCA, CMP, 92819-9, 87406-5, 3084-1, 3016- 3, 3024-7, 3051-0, 2284-8, 2131- #### [facility] ([id number]) [address], [address] [place] [address] Platelets (Bld) [#/Vol] 492 10*3/uL High 150-450 [facility] Comment on above: Performed By: #### C BCA, CMP, 18683-9, 56037-0, 3084-1, 3016- 3, 3024-7, 3051-0, 2284-8, 2132-03 #### [facility] ([id number]) [address], [address] [place] [address] RBC COUNT 3.99 X10E12/L Normal 3.80-5.20 [facility] Comment on above: Performed By: #### C BCA, CMP, 34626-7, 03255-5, 3084-1, 3016- 3, 3024-7, 3051-0, 2284-8, 2132-03 #### [facility] ([id number]) [address], [address] [place] [address] WBC (Bld) [#/Vol] 6.2 10*3/uL Normal 4.0-11.0 [facility] Comment on above: Performed By: #### C BCA, CMP, 40573-1, 18803-0, 3084-1, 3016- 3, 3024-7, 3051-0, 228-8, 2132-03 #### [facility] ([id number]) [address], [address] [place] [address] COMPREHENSIVE METABOLIC PANE Jarad 09-18-2023 Albumin [Mass/Vol] 3.8 g/dL Normal 3.2-5.3 [facility] Comment on above: Performed By: #### C BCA, CMP, 59142-6, 72438-9, 3084-1, 3016- 3, 3024-7, 3051-0, 2284-8, 2132-03 #### [facility] ([id number]) [address], [address] [place] [address] ALP [Catalytic activity/Vol] 92 U/L Normal 39-130 [facility] Comment on above: Performed By: #### C BCA, CMP, 06963-4, 85421-5, 3084-1, 3016- 3, 3024-7, 3051-0, 2284-8, 2132-9 #### [facility] ([id number]) [address], [address] [place] [address] ALT [Catalytic activity/Vol] 9 U/L Normal 0-31 [facility] Comment on above: Performed By: #### C BCA, CMP, 82551-6, 46029-3, 3084-1, 3016- 3, 3024-7, 3051-0, 2284-8, 2131-9 #### [facility] ([id number]) [address], [address] [place] [address] Anion gap [Moles/Vol] 9 mmol/L Normal 5-15 [facility] Comment on above: Performed By: #### C BCA, CMP, 11571-5, 18150-5, 3084-1, 3016- 3, 3024-7, 3051-0, 2284-8, 2131-9 #### [facility] ([id number]) [address], [address] [place] [address] AST [Catalytic activity/Vol] 16 U/L Normal 0-41 [facility] Comment on above: Performed By: #### C BCA, CMP, 62511-3, 47533-4, 3084-1, 3016- 3, 3024-7, 3051-0, 2284-8, 2131-9 #### [facility] ([id number]) [address], [address] [place] [address] Bilirubin [Mass/Vol] 0.5 mg/dL Normal 0.3-1.2 [facility] Comment on above: Performed By: #### C BCA, CMP, 36309-3, 88531-6, 3084-1, 3016- 3, 3024-7, 3051-0, 2284-8, 2-9 #### [facility] ([id number]) [address], [address] [place] [address] Calcium [Mass/Vol] 9.9 mg/dL Normal 8.5-10.5 [facility] Comment on above: Performed By: #### C BCA, CMP, 45685-1, 61189-0, 3084-1, 3016- 3, 3024-7, 3051-0, 2284-8, 2132-03 #### [facility] ([id number]) [address], [address] [place] [address] Chloride [Moles/Vol] 102 mmol/L Normal 98-109 [facility] Comment on above: Performed By: #### C BCA, CMP, 59652-2, 82194-8, 3084-1, 3016- 3, 3024-7, 3051-0, 2284-8, 2132-03 #### [facility] ([id number]) [address], [address] [place] [address] CO2 [Moles/Vol] 27 mmol/L Normal 22-32 [facility] Comment on above: Performed By: #### C BCA, CMP, 96302-2, 83791-0, 3084-1, 3016- 3, 3024-7, 3051-0, 2284-8, 2132-03 #### [facility] ([id number]) [address], [address] [place] [address] Creatinine [Mass/Vol] 0.75 mg/dL Normal 0.40-1.00 [facility] Comment on above: Result Comment: METH OD TRACEABLE TO IDMS STANDARD Performed By: #### C BCA, CMP, 84668-0, 90511-9, 3084-1, 3016-3, 3024-7, 3051-0, 2284-8, 2132-03 #### [facility] ([id number]) [address], [address] [place] [address] GFR/1.73 sq M.predicted among non-blacks MDRD (S/P/Bld) [Vol rate/Area] 80 mL/min/{1.73_m2} Normal >59 [facility] Comment on above: Result Comment: Reported eGFR is based on the CKD-EPI 2020 equation that does not use a race coefficient. Performed By: #### C BCA, CMP, 51346-9, 10078-2, 3084-1, 3016-3, 3024-7, 3051-0, 2284-8, 2132-03 #### [facility] ([id number]) [address], [address] [place] [address] Glucose [Mass/Vol] 98 mg/dL Normal 65-99 [facility] Comment on above: Performed By: #### C BCA, CMP, 18937-8, 81649-5, 3084-1, 3016- 3, 3024-7, 3051-0, 2284-8, 2132-03 #### [facility] ([id number]) [address], [address] [place] [address] Potassium [Moles/Vol] 4.4 mmol/L Normal 3.5-5.0 [facility] Comment on above: Performed By: #### C BCA, CMP, 04236-2, 00552-3, 3084-1, 3016- 3, 3024-7, 3051-0, 2284-8, 2132-03 #### [facility] ([id number]) [address], [address] [place] [address] Protein [Mass/Vol] 7.5 g/dL Normal 6.0-8.0 [facility] Comment on above: Performed By: #### C BCA, CMP, 76219-5, 72205-2, 3084-1, 3016- 3, 3024-7, 3051-0, 2284-8, 2132-03 #### [facility] ([id number]) [address], [address] [place] [address] Sodium [Moles/Vol] 138 mmol/L Normal 134-146 [facility] Comment on above: Performed By: #### C BCA, CMP, 41273-8, 57580-4, 3084-1, 3016- 3, 3024-7, 3051-0, 2284-8, 2132-03 #### [facility] ([id number]) [address], [address] [place] [address] Urea nitrogen [Mass/Vol] 21 mg/dL Normal 5-27 [facility] Comment on above: Performed By: #### C BCA, CMP, 88687-3, 68753-3, 3084-1, 3016- 3, 3024-7, 3051-0, 2284-8, 2132-03 #### [facility] ([id number]) [address], [address] [place] [address] FREE T3on 09-18-2023 Free T3 [Mass/Vol] 3.02 pg/mL Normal 2.50-3.90 [facility] Comment on above: Performed By: #### C BCA, CMP, 21711-9, 78399-3, 3084-1, 3016- 3, 3024-7, 3051-0, 2283-8, 2132-03 #### [facility] ([id number]) [address], [address] [place] [address] FREE T4on 09-18-2023 Free T4 [Mass/Vol] 1.24 ng/dL Normal 0.61-1.60 [facility] Comment on above: Performed By: #### C BCA, CMP, 36912-0, 85231-3, 3084-1, 3016- 3, 3024-7, 3051-0, 2284-8, 2132-03 #### [facility] ([id number]) [address], [address] [place] [address] Folate [Mass/Vol]on 09-18-19 24 FOLIC ACID 16.5 ng/mL Normal >5.8 [facility] Comment on above: Result Comment: NEW REFERENCE RANGE Performed By: #### C BCA, CMP, 98730-6, 84078-3, 3084-1, 3016-3, 3024-7, 3051-0, 2284-8, 2132-03 #### [facility] ([id number]) [address] [place] [address], [address] [place] [address] HGB A1C (GLYCO-HGB)on 2023 Glucose [Mass/Vol] 120 mg/dL Normal [facility] Comment on above: Performed By: #### C BCA, CMP, 60049-8, 38519-3, 3084-1, 3016- 3, 3024-7, 3051-0, 2284-8, 2132-03 #### [facility] ([id number]) [address] [place] [address], [address] [place] [address] HbA1c (Bld) [Mass fraction] 5.8 % High 4.4-5.6 [facility] Comment on above: Result Comment: NOTE ADA Guidelines Result HgbA1c Normal : less than 5.7 % Prediabetes : 5.7 % to 6.4 % Diabetes : > 6.4 % Use with caution in patients with abnormal hemoglobin variants as the half-life of red blood cells and in vivo glycation rates are affected. Performed By: #### C BCA, CMP, 61367-9, 33619-9, 3084-1, 3016-3, 3024-7, 3051-0, 2283-8, 2132-03 #### [facility] ([id number]) [address] [place] [address], [address] [place] [address] Lipid 1996 panelon Cholesterol [Mass/Vol] 157 mg/dL Normal 150-200 [facility] Comment on above: Performed By: #### C BCA, CMP, 08199-1, 97440-0, 3084-1, 3016- 3, 3024-7, 3051-0, 2284-8, 2132-03 #### [facility] ([id number]) [address], [address] [place] [address] Cholesterol in HDL [Mass/Vol] 57 mg/dL Normal >39 [facility] Comment on above: Result Comment: HDL <40 mg/dL - High Risk HDL > or = 40mg/dL- Desirable HDL >60 mg/dL - Negative Risk Performed By: #### C BCA, CMP, 89995-2, 14155-3, 3084-1, 3016-3, 3024-7, 3051-0, 2284-8, 2131-9 #### [facility] ([id number]) [address], [address] [place] [address] Cholesterol in LDL [Mass/Vol] 79 mg/dL Normal <130 [facility] Comment on above: Result Comment: LDL <100 mg/dL - Desirable LDL >160 mg/dL - High Risk Performed By: #### C BCA, CMP, 10921-8, 13820-8, 3084-1, 3016-3, 3024-7, 3051-0, 2284-8, 2131-9 #### [facility] ([id number]) [address] [place] [address] Cholesterol in VLDL [Mass/Vol] 21 mg/dL Normal 0-30 [facility] Comment on above: Performed By: #### C BCA, CMP, 00209-6, 37054-1, 3084-1, 3016- 3, 3024-7, 3051-0, 2284-8, 2132-9 #### [facility] ([id number]) [address], [address] [place] [address] CHOLESTEROL:HDL 2.8 Normal 1.0-5.0 [facility] Comment on above: Performed By: #### C BCA, CMP, 51354-3, 27500-1, 3084-1, 3016- 3, 3024-7, 3051-0, 2284-8, 2132-03 #### [facility] ([id number]) [address], [address] [place] [address] Triglyceride [Mass/Vol] 104 mg/dL Normal 27-150 [facility] Comment on above: Performed By: #### C BCA, CMP, 57022-7, 52130-2, 3084-1, 3016- 3, 3024-7, 3051-0, 228-8, 2132-03 #### [facility] ([id number]) [address], [address] [place] [address] MAGNESIUMon 09-18-2023 Magnesium [Mass/Vol] 1.7 mg/dL Low 1.8-2.6 [facility] Comment on above: Performed By: #### C BCA, CMP, 10128-4, 89702-0, 3084-1, 3016- 3, 3024-7, 3051-0, 2283-8, 2132-03 #### [facility] ([id number]) [address], [address] [place] [address] TSH Qnon 09-18-2023 TSH 2.26 uIU/mL Normal 0.49-4.67 [facility] Comment on above: Performed By: #### C BCA, CMP, 65895-3, 02453-3, 3084-1, 3016- 3, 3024-7, 3051-0, 228-8, 2132-03 #### [facility] ([id number]) [address], [address] [place] [address] URIC ACIDon 09-18-2023 Urate [Mass/Vol] 5.8 mg/dL Normal 2.6-7.2 [facility] Comment on above: Performed By: #### C BCA, CMP, 73381-7, 48866-8, 3084-1, 3016- 3, 3024-7, 3051-0, 2284-8, 2132-03 #### [facility] ([id number]) [address] [place] [address] VITAMIN B12on 09-18-2023 Cobalamin (Vitamin B12) [Mass/Vol] pg/mL High 180-914 [facility] Comment on above: Performed By: #### C BCA, CMP, 03098-1, 82703-7, 3084-1, 3016- 3, 3024-7, 3051-0, 2284-8, 2132-03 #### [facility] ([id number]) [address] [place] [address] XR KNEE LT 3 VWSon 4 XR [...] Marquis MD on 09/18/2023 12:15 PM Normal [facility] CBC AUTO DIFFon 11-11-2022 BASO # 0.0 103/ul Normal 0.0-0.1 [facility] Comment on above: Performed By: #### U BRENT #### [facility] [address] [address] [address] Brandi Abarca Basophils/100 WBC (Bld) 0.5 % Normal 0.2-2.0 [facility] Comment on above: Performed By: #### U BRENT #### [facility] [address] [place], [place] [address] Dr. Brandi Abarca EO # 0.2 103/ul Normal 0.0-0.7 [facility] Comment on above: Performed By: #### U BRENT #### [facility] [address] [place] [address] Dr. Brandi Abarca Eosinophils/100 WBC (Bld) 3.0 % Normal 0.9-7.0 [facility] Comment on above: Performed By: #### U BRENT #### [facility] [address] [place] [address] Dr. Brandi Abarca Erythrocyte distribution width (RBC) [Ratio] 13.6 % Normal 11.0-15.0 [facility] Comment on above: Performed By: #### U BRENT #### [facility] [address] [place] [address] Dr. Brandi Abarca Hematocrit (Bld) [Volume fraction] 34.4 % Critically low 36.0-48.0 [facility] Comment on above: Performed By: #### U BRENT #### [facility] [address] [place] [address] Dr. Brandi Abarca Hemoglobin (Bld) [Mass/Vol] 10.6 g/dL Critically low 12.0-16.0 [facility] Comment on above: Performed By: #### U RBENT #### [facility] [address] [place] [address] Dr. Brandi Abarca IG # 0.02 10e3/ul Normal 0.00-0.03 [facility] Comment on above: Performed By: #### U BRENT #### [facility] [address] [place] [address] Dr. Brandi Abarca IG % 0.3 % Normal 0.0-0.5 [facility] Comment on above: Performed By: #### U BRENT #### [facility] [address] [place] [address] Dr. Brandi Abarca LYMPH # 1.2 103/ul Normal 1.2-3.8 [facility] Comment on above: Performed By: #### U BRENT #### [facility] [address] [place] [address] Dr. Brandi Abarca Lymphocytes/100 WBC (Bld) 20.4 % Critically low 20.5-60.0 [facility] Comment on above: Performed By: #### U BRENT #### [facility] [address] [address] [address] Brandi Abarca MANUAL DIFF REQ NO Normal [facility] Comment on above: Performed By: #### U BRENT #### [facility] [address] [address] [address] Brandi Abarca MCH (RBC) [Entitic mass] 30.5 pg Normal 26.7-34.0 [facility] Comment on above: Performed By: #### U BRENT #### [facility] [address] [address] [address] Brandi Abarca MCHC (RBC) [Mass/Vol] 30.8 g/dL Normal 29.9-35.2 [facility] Comment on above: Performed By: #### U BRENT #### [facility] [address] [place] [address] Dr. Brandi Abarca MCV (RBC) [Entitic vol] 99.1 fL Critically high 81.0-99.0 [facility] Comment on above: Performed By: #### U BRENT #### [facility] [address] [place] [address] Dr. Brandi Abarca MONO # 0.7 103/ul Normal 0.3-0.8 [facility] Comment on above: Performed By: #### U BRENT #### [facility] [address] [place] [address] Dr. Brandi Abarca Monocytes/100 WBC (Bld) 12.0 % Normal 1.7-12.0 [facility] Comment on above: Performed By: #### U BRENT #### [facility] [address] [place] [address] Dr. Brandi Abarca NEUT # 3.8 103/ul Normal 1.4-6.5 [facility] Comment on above: Performed By: #### U BRENT #### [facility] [address] [place] [address] Dr. Brandi Abarca Neutrophils/100 WBC (Bld) 63.8 % Normal 43.0-75.0 [facility] Comment on above: Performed By: #### U BRENT #### [facility] [address] [place] [address] Dr. Brandi Abarca Platelet mean volume (Bld) [Entitic vol] 11.5 fL Normal 9.5-13.5 [facility] Comment on above: Performed By: #### U BRENT #### [facility] [address] [place] [address] Dr. Brandi Abarca PLT 212 103/ul Normal 150-450 [facility] Comment on above: Performed By: #### U BRENT #### [facility] [address] [place] [address] Dr. Brandi Abarca RBC 3.47 106/ul Critically low 4.20-5.40 [facility] Comment on above: Performed By: #### U BRENT #### [facility] [address] [place] [address] Dr. Brandi Abarca WBC 5.9 103/ul Normal 4.0-11.0 [facility] Comment on above: Performed By: #### U BRENT #### [facility] [address] [place] [address] Dr. Brandi Abarca GLYCOHEMOGLOBIN A1Con 2022 ADA RECOMMENDATION SEE BELOW Normal [facility] Comment on above: Result Comment: ADA RECOMMENDED LIMIT 4.0 - 6.0 ADA THERAPEUTIC TARGET < 7.0 ACTION SUGGESTED > 7.0 Performed By: #### A 1C #### [facility] [address] [place] [address] Dr. Brandi Abarca Glucose [Mass/Vol] 114 mg/dL Normal [facility] Comment on above: Performed By: #### A 1C #### [facility] [address] [place] [address] Dr. Brandi Abarca HbA1c (Bld) [Mass fraction] 5.6 % Normal 4.5-6.2 [facility] Comment on above: Performed By: #### A 1C #### [facility] [address] [place] [address] Dr. Brandi Abarca MAGNESIUMon 11-11-2022 Magnesium [Mass/Vol] 1.6 mg/dL Critically low 1.8-2.4 [facility] Comment on above: Performed By: #### U BRENT #### [facility] [address] [place] [address] [address] Brandi Abarca PROF 14(COMP METB)on 023 Albumin [Mass/Vol] 2.4 g/dL Critically low 3.4-5.0 [facility] Comment on above: Performed By: #### U BRENT #### [facility] [address] [place] [address] [address] Brandi Abarca Albumin/Globulin [Mass ratio] 0.6 {ratio} Normal [facility] Comment on above: Performed By: #### U BRENT #### [facility] [address] [place] [address] [address] Brandi Abarca ALP [Catalytic activity/Vol] 82 U/L Normal 46-116 [facility] Comment on above: Performed By: #### U BRENT #### [facility] [address] [place] [address] Dr. Brandi Abarca ALT [Catalytic activity/Vol] 14 U/L Normal 14-59 [facility] Comment on above: Performed By: #### U BRENT #### [facility] [address] [place] [address] [address] Brandi Abarca Anion gap [Moles/Vol] 9.6 mmol/L Normal [facility] Comment on above: Performed By: #### U BRENT #### [facility] [address] [place] [address] [address] Brandi Abarca AST [Catalytic activity/Vol] 14 U/L Critically low 15-37 [facility] Comment on above: Performed By: #### U BRENT #### [facility] [address] [place] [address] Dr. Brandi Abarca Bilirubin [Mass/Vol] 0.2 mg/dL Normal 0.2-1.0 [facility] Comment on above: Performed By: #### U BRENT #### [facility] [address] [place] [address] [address] Brandi Abarca Calcium [Mass/Vol] 8.6 mg/dL Normal 8.5-10.1 [facility] Comment on above: Performed By: #### U BRENT #### [facility] [address] [place] [address] [address] Brandi Abarca Chloride [Moles/Vol] 103 mmol/L Normal 98-107 [facility] Comment on above: Performed By: #### U BRENT #### [facility] [address] [place] [address] [address] Brandi Abarca CO2 [Moles/Vol] 29.6 mmol/L Normal 21.0-32.0 [facility] Comment on above: Performed By: #### U BRENT #### [facility] [address] [place] [address] [address] Brandi Abarca Creatinine [Mass/Vol] 0.90 mg/dL Normal 0.55-1.02 [facility] Comment on above: Performed By: #### U BRENT #### [facility] [address] [place] [address] Dr. Brandi Abarca EGFR-AF PALESTINIAN >60 Normal >=60 [facility] Comment on above: Performed By: #### U BRENT #### [facility] [address] [place] [address] Dr. Brandi Abarca EGFR-NON AF PALESTINIAN 60 mL/min/1.73m2 Normal >=60 [facility] Comment on above: Performed By: #### U BRENT #### [facility] [address] [place] [address] Dr. Brandi Abarca Globulin (S) [Mass/Vol] 3.9 g/dL Normal [facility] Comment on above: Performed By: #### U BRENT #### [facility] [address] [place] [address] [address] Brandi Abarca Glucose [Mass/Vol] 113 mg/dL Critically high 74-106 [facility] Comment on above: Performed By: #### U BRENT #### [facility] [address] [place] [address] Dr. Brandi Abarca Potassium [Moles/Vol] 4.2 mmol/L Normal 3.5-5.1 [facility] Comment on above: Performed By: #### U BRENT #### [facility] [address] [place] [address] Dr. Brandi Abarca Protein [Mass/Vol] 6.3 g/dL Critically low 6.4-8.2 [facility] Comment on above: Performed By: #### U BRENT #### [facility] [address] [place] [address] Dr. Brandi Abarca Sodium [Moles/Vol] 138 mmol/L Normal 136-145 [facility] Comment on above: Performed By: #### U BRENT #### [facility] [address] [place] [address] Dr. Brandi Abarca Urea nitrogen [Mass/Vol] 14.0 mg/dL Normal 7.0-18.0 [facility] Comment on above: Performed By: #### U BRENT #### [facility] [address] [place] [address] Dr. Brandi Abacra Urea nitrogen/Creatinine [Mass ratio] 15.6 mg/mg Normal [facility] Comment on above: Performed By: #### U BRENT #### [facility] [address] [place] [address] Dr. Brandi Abarca CBC AUTO DIFFon 11-10-2022 BASO # 0.0 103/ul Normal 0.0-0.1 [facility] Comment on above: Performed By: #### A 1C #### [facility] [address] [place] [address] Dr. Brandi Abarca Basophils/100 WBC (Bld) 0.3 % Normal 0.2-2.0 [facility] Comment on above: Performed By: #### A 1C #### [facility] [address] [place] [address] Dr. Brandi Abarca EO # 0.0 103/ul Normal 0.0-0.7 [facility] Comment on above: Performed By: #### A 1C #### [facility] [address] [place] [address] Dr. Brandi Abarca Eosinophils/100 WBC (Bld) 0.3 % Critically low 0.9-7.0 [facility] Comment on above: Performed By: #### A 1C #### [facility] [address] [place] [address] Dr. Brandi Abarca Erythrocyte distribution width (RBC) [Ratio] 13.7 % Normal 11.0-15.0 [facility] Comment on above: Performed By: #### A 1C #### [facility] [address] [place] [address] Dr. Brandi Abarca Hematocrit (Bld) [Volume fraction] 36.3 % Normal 36.0-48.0 [facility] Comment on above: Performed By: #### A 1C #### [facility] [address] [place] [address] Dr. Brandi Abarca Hemoglobin (Bld) [Mass/Vol] 11.3 g/dL Critically low 12.0-16.0 [facility] Comment on above: Performed By: #### A 1C #### [facility] [address] [place] [address] Dr. Brandi Abarca IG # 0.03 10e3/ul Normal 0.00-0.03 [facility] Comment on above: Performed By: #### A 1C #### [facility] [address] [place] [address] Dr. Brandi Abarca IG % 0.4 % Normal 0.0-0.5 [facility] Comment on above: Performed By: #### A 1C #### [facility] [address] [place] [address] Dr. Brandi Abarca LYMPH # 1.1 103/ul Critically low 1.2-3.8 [facility] Comment on above: Performed By: #### A 1C #### [facility] [address] [place] [address] Dr. Brandi Abarca Lymphocytes/100 WBC (Bld) 15.1 % Critically low 20.5-60.0 [facility] Comment on above: Performed By: #### A 1C #### [facility] [address] [place] [address] Dr. Brandi Abarca MANUAL DIFF REQ NO Normal [facility] Comment on above: Performed By: #### A 1C #### [facility] [address] [place] [address] Dr. Brandi Abarca MCH (RBC) [Entitic mass] 30.6 pg Normal 26.7-34.0 [facility] Comment on above: Performed By: #### A 1C #### [facility] [address] [place] [address] Dr. Brandi Abarca MCHC (RBC) [Mass/Vol] 31.1 g/dL Normal 29.9-35.2 [facility] Comment on above: Performed By: #### A 1C #### [facility] [address] [place] [address] Dr. Brandi Abarca MCV (RBC) [Entitic vol] 98.4 fL Normal 81.0-99.0 [facility] Comment on above: Performed By: #### A 1C #### [facility] [address] [place] [address] Dr. Brandi Abarca MONO # 0.9 103/ul Critically high 0.3-0.8 [facility] Comment on above: Performed By: #### A 1C #### [facility] [address] [place] [address] Dr. Brandi Abarca Monocytes/100 WBC (Bld) 11.6 % Normal 1.7-12.0 [facility] Comment on above: Performed By: #### A 1C #### [facility] [address] [place] [address] Dr. Brandi Abarca NEUT # 5.5 103/ul Normal 1.4-6.5 [facility] Comment on above: Performed By: #### A 1C #### [facility] [address] [place] [address] Dr. Brandi Abarca Neutrophils/100 WBC (Bld) 72.3 % Normal 43.0-75.0 [facility] Comment on above: Performed By: #### A 1C #### [facility] [address] [place] [address] Dr. Brandi Abarca Platelet mean volume (Bld) [Entitic vol] 9.8 fL Normal 9.5-13.5 [facility] Comment on above: Performed By: #### A 1C #### [facility] [address] [place] [address] Dr. Brandi Abarca PLT 211 103/ul Normal 150-450 [facility] Comment on above: Performed By: #### A 1C #### [facility] [address] [place], [place] [address] Dr. Brandi Abarca RBC 3.69 106/ul Critically low 4.20-5.40 [facility] Comment on above: Performed By: #### A 1C #### [facility] [address] [place], [place] [address] Dr. Brandi Abarca WBC 7.5 103/ul Normal 4.0-11.0 [facility] Comment on above: Performed By: #### A 1C #### [facility] [address] [place], [place] [address] Dr. Brandi Abarca ECHOCARDIO M/2D COMPLETEon 0 11-10-2022 ECHOCARDIO M/2D COMPLETE Patient: CUATE GOODMAN Exam Date: 11/10/2022 : 1940 Gender:F Ordering : SELINA POSADAS . Admission #: [id number] Family : Order #: [id number] CLICK HERE TO VIEW EXAM ECHOCARDIOGRAM REPORT [...] Moore M.D. on 11/11/2022 at 10:13 Normal [facility] GLYCOHEMOGLOBIN A1Con 2022 ADA RECOMMENDATION SEE BELOW Normal [facility] Comment on above: Result Comment: ADA RECOMMENDED LIMIT 4.0 - 6.0 ADA THERAPEUTIC TARGET < 7.0 ACTION SUGGESTED > 7.0 Performed By: #### U BRENT #### [facility] [address] [place] [address] Dr. Brandi Abarca Glucose [Mass/Vol] 120 mg/dL Normal [facility] Comment on above: Performed By: #### U BRENT #### [facility] [address] [place] [address] [address] Brandi Abarca HbA1c (Bld) [Mass fraction] 5.8 % Normal 4.5-6.2 [facility] Comment on above: Performed By: #### U BRENT #### [facility] [address] [place] [address] Dr. Brandi Abarca MAGNESIUMon 11-10-2022 Magnesium [Mass/Vol] 1.6 mg/dL Critically low 1.8-2.4 [facility] Comment on above: Performed By: #### A 1C #### [facility] [address] [place] [address] Dr. Brandi Abarca PROF 14(COMP METB)on 023 Albumin [Mass/Vol] 2.6 g/dL Critically low 3.4-5.0 [facility] Comment on above: Performed By: #### U BRENT #### [facility] [address] [place] [address] Dr. Brandi Abarca Albumin/Globulin [Mass ratio] 0.7 {ratio} Normal [facility] Comment on above: Performed By: #### U BRENT #### [facility] [address] [place] [address] Dr. Brandi Abarca ALP [Catalytic activity/Vol] 84 U/L Normal 46-116 [facility] Comment on above: Performed By: #### U BRENT #### [facility] [address] [place] [address] Dr. Brandi Abarca ALT [Catalytic activity/Vol] 16 U/L Normal 14-59 [facility] Comment on above: Performed By: #### U BRENT #### [facility] [address] [place] [address] Dr. Brandi Abarca Anion gap [Moles/Vol] 5.4 mmol/L Normal [facility] Comment on above: Performed By: #### U BRENT #### [facility] [address] [place] [address] Dr. Brandi Abarca AST [Catalytic activity/Vol] 15 U/L Normal 15-37 [facility] Comment on above: Performed By: #### U BRENT #### [facility] [address] [place] [address] Dr. Brandi Abarca Bilirubin [Mass/Vol] 0.5 mg/dL Normal 0.2-1.0 [facility] Comment on above: Performed By: #### U BRENT #### [facility] [address] [place] [address] Dr. Brandi Abarca Calcium [Mass/Vol] 8.8 mg/dL Normal 8.5-10.1 [facility] Comment on above: Performed By: #### U BRENT #### [facility] [address] [place] [address] Dr. Brandi Abarca Chloride [Moles/Vol] 101 mmol/L Normal 98-107 [facility] Comment on above: Performed By: #### U BRENT #### [facility] [address] [place] [address] Dr. Brandi Abarca CO2 [Moles/Vol] 33.4 mmol/L Critically high 21.0-32.0 [facility] Comment on above: Performed By: #### U BRENT #### [facility] [address] [place] [address] [address] Brandi Abarca Creatinine [Mass/Vol] 0.85 mg/dL Normal 0.55-1.02 [facility] Comment on above: Performed By: #### U BRENT #### [facility] [address] [place] [address] [address] Brandi Abarca EGFR-AF PALESTINIAN >60 Normal >=60 [facility] Comment on above: Performed By: #### U BRENT #### [facility] [address] [place] [address] [address] Brandi Abarca EGFR-NON AF PALESTINIAN >60 Normal >=60 [facility] Comment on above: Performed By: #### U BRENT #### [facility] [address] [place] [address] Dr. Brandi Abarca Globulin (S) [Mass/Vol] 3.9 g/dL Normal [facility] Comment on above: Performed By: #### U BRENT #### [facility] [address] [place] [address] [address] Brandi Abarca Glucose [Mass/Vol] 116 mg/dL Critically high 74-106 [facility] Comment on above: Performed By: #### U BRENT #### [facility] [address] [place] [address] [address] Brandi Abarca Potassium [Moles/Vol] 3.8 mmol/L Normal 3.5-5.1 [facility] Comment on above: Performed By: #### U BRENT #### [facility] [address] [place] [address] [address] Brandi Abarca Protein [Mass/Vol] 6.5 g/dL Normal 6.4-8.2 [facility] Comment on above: Performed By: #### U BRENT #### [facility] [address] [place] [address] [address] Brandi Abarca Sodium [Moles/Vol] 136 mmol/L Normal 136-145 [facility] Comment on above: Performed By: #### U BRENT #### [facility] [address] [place] [address] Dr. Brandi Abarca Urea nitrogen [Mass/Vol] 12.0 mg/dL Normal 7.0-18.0 [facility] Comment on above: Performed By: #### U BRENT #### [facility] [address] [place] [address] Dr. Brandi Abarca Urea nitrogen/Creatinine [Mass ratio] 14.1 mg/mg Normal [facility] Comment on above: Performed By: #### U BRENT #### [facility] [address] [place] [address] Dr. Brandi Abarca PTT HEPARIN MONITORon 2022 aPTT Coag (Bld) [Time] 48.7 s Normal 39.5-54.2 [facility] Comment on above: Performed By: #### P TTHEP #### [facility] [address] [place] [address] Dr. Brandi Abarca aPTT Coag (Bld) [Time] 56.6 s Critically high 39.5-54.2 [facility] Comment on above: Performed By: #### A 1C #### [facility] [address] [place] [address] Dr. Brandi Abarca aPTT Coag (Bld) [Time] 51.4 s Normal 39.5-54.2 [facility] Comment on above: Performed By: #### P TTHEP #### [facility] [address] [place] [address] Dr. Brandi Abarca BNPon 11-09-2022 Natriuretic peptide B (Bld) [Mass/Vol] 1702.0 pg/mL Normal <=1,800.0 [facility] Comment on above: Performed By: #### U BRENT #### [facility] [address] [place] [address] Dr. Brandi Abarca Natriuretic peptide B (Bld) [Mass/Vol] 1702.0 pg/mL Normal <=1,800.0 [facility] Comment on above: Performed By: #### H STROPN, BNP, BMP #### [facility] [address] [place] [address] Dr. Brandi Abarca CBC AUTO DIFFon 11-09-2022 BASO # 0.0 103/ul Normal 0.0-0.1 [facility] Comment on above: Performed By: #### A 1C #### [facility] [address] [place] [address] Dr. Brandi Abarca Basophils/100 WBC (Bld) 0.4 % Normal 0.2-2.0 [facility] Comment on above: Performed By: #### A 1C #### [facility] [address] [place] [address] Dr. Brandi Abarca EO # 0.2 103/ul Normal 0.0-0.7 [facility] Comment on above: Performed By: #### A 1C #### [facility] [address] [place] [address] Dr. Brandi Abarca Eosinophils/100 WBC (Bld) 1.8 % Normal 0.9-7.0 [facility] Comment on above: Performed By: #### A 1C #### [facility] [address] [place] [address] Dr. Brandi Abarca Erythrocyte distribution width (RBC) [Ratio] 13.6 % Normal 11.0-15.0 [facility] Comment on above: Performed By: #### A 1C #### [facility] [address] [place] [address] Dr. Brandi Abarca Hematocrit (Bld) [Volume fraction] 38.2 % Normal 36.0-48.0 [facility] Comment on above: Performed By: #### A 1C #### [facility] [address] [place] [address] Dr. Brandi Abarca Hemoglobin (Bld) [Mass/Vol] 12.2 g/dL Normal 12.0-16.0 [facility] Comment on above: Performed By: #### A 1C #### [facility] [address] [place] [address] Dr. Brandi Abarca IG # 0.02 10e3/ul Normal 0.00-0.03 [facility] Comment on above: Performed By: #### A 1C #### [facility] [address] [place] [address] Dr. Brandi Abarca IG % 0.2 % Normal 0.0-0.5 [facility] Comment on above: Performed By: #### A 1C #### [facility] [address] [place] [address] Dr. Brandi Abarca LYMPH # 1.3 103/ul Normal 1.2-3.8 [facility] Comment on above: Performed By: #### A 1C #### [facility] [address] [place] [address] Dr. Brandi Abarca Lymphocytes/100 WBC (Bld) 15.4 % Critically low 20.5-60.0 [facility] Comment on above: Performed By: #### A 1C #### [facility] [address] [place] [address] Dr. Brandi Abarca MANUAL DIFF REQ NO Normal [facility] Comment on above: Performed By: #### A 1C #### [facility] [address] [place] [address] Dr. Brandi Abarca MCH (RBC) [Entitic mass] 30.7 pg Normal 26.7-34.0 [facility] Comment on above: Performed By: #### A 1C #### [facility] [address] [place] [address] Dr. Brandi Abarca MCHC (RBC) [Mass/Vol] 31.9 g/dL Normal 29.9-35.2 [facility] Comment on above: Performed By: #### A 1C #### [facility] [address] [place] [address] Dr. Brandi Abarca MCV (RBC) [Entitic vol] 96.0 fL Normal 81.0-99.0 [facility] Comment on above: Performed By: #### A 1C #### [facility] [address] [place] [address] Dr. Brandi Abarca MONO # 0.7 103/ul Normal 0.3-0.8 [facility] Comment on above: Performed By: #### A 1C #### [facility] [address] [place] [address] Dr. Brandi Abarca Monocytes/100 WBC (Bld) 8.6 % Normal 1.7-12.0 [facility] Comment on above: Performed By: #### A 1C #### [facility] [address] [place] [address] Dr. Brandi Abarca NEUT # 6.0 103/ul Normal 1.4-6.5 [facility] Comment on above: Performed By: #### A 1C #### [facility] [address] [place] [address] Dr. Brandi Abarca Neutrophils/100 WBC (Bld) 73.6 % Normal 43.0-75.0 [facility] Comment on above: Performed By: #### A 1C #### [facility] [address] [place] [address] Dr. Brandi Abarca Platelet mean volume (Bld) [Entitic vol] 9.8 fL Normal 9.5-13.5 [facility] Comment on above: Performed By: #### A 1C #### [facility] [address] [place] [address] Dr. Brandi Abarca PLT 234 103/ul Normal 150-450 [facility] Comment on above: Performed By: #### A 1C #### [facility] [address] [place] [address] Dr. Brandi Abarca RBC 3.98 106/ul Critically low 4.20-5.40 [facility] Comment on above: Performed By: #### A 1C #### [facility] [address] [place] [address] Dr. Brandi Abarca WBC 8.1 103/ul Normal 4.0-11.0 [facility] Comment on above: Performed By: #### A 1C #### [facility] [address] [place] [address] Dr. Brandi Abarca CTA CHEST WO W [...] EYAD FREITAS Date: 2022-11-09 08:23 Normal [facility] Covid-19 PCR (CVDTBH)on 10-18 SARS-CoV-2 (COVID-19) RNA SMILEY+probe Ql (Unsp spec) Not detected Normal NOT DETECTED [facility] Comment on above: Result Comment: This test is not yet approved or cleared by the [place] FDA. When there are no FDA-approved or cleared tests available, and other criteria are met, FDA can make tests available under an emergency access mechanism called an Emergency Use Authorization (EUA). The EUA for this test is supported by the [place] of Health and Human Service's (HHS's) declaration [...] consistent with SARS-CoV-2. Performed By: #### C VDTB #### [facility] [address] [place] [address] Dr. Brandi Abarca PROF CHEM 8 (BAS METB)on Anion gap [Moles/Vol] 12.2 mmol/L Normal Th [facility] [place] Comment on above: Performed By: #### H STROPN, BNP, BMP #### [facility] [address] [place] [address] Dr. Brandi Abarca Calcium [Mass/Vol] 9.0 mg/dL Normal 8.5-10.1 [facility] Comment on above: Performed By: #### H STROPN, BNP, BMP #### [facility] [address] [place] [address] Dr. Brandi Abarca Chloride [Moles/Vol] 103 mmol/L Normal 98-107 [facility] Comment on above: Performed By: #### H STROPN, BNP, BMP #### [facility] [address] [place] [address] Dr. Brandi Abarca CO2 [Moles/Vol] 30.6 mmol/L Normal 21.0-32.0 [facility] Comment on above: Performed By: #### H STROPN, BNP, BMP #### [facility] [address] [place] [address] Dr. Brandi Abarca Creatinine [Mass/Vol] 0.89 mg/dL Normal 0.55-1.02 [facility] Comment on above: Performed By: #### H STROPN, BNP, BMP #### [facility] [address] [place] [address] Dr. Brandi Abarca EGFR-AF PALESTINIAN >60 Normal >=60 [facility] Comment on above: Performed By: #### H STROPN, BNP, BMP #### [facility] [address] [place] [address] Dr. Brandi Abarca EGFR-NON AF PALESTINIAN >60 Normal >=60 [facility] Comment on above: Performed By: #### H STROPN, BNP, BMP #### [facility] [address] [place] [address] Dr. Brandi Abarca Glucose [Mass/Vol] 102 mg/dL Normal 74-106 [facility] Comment on above: Performed By: #### H STROEMILIA, BNP, BMP #### [facility] [address] [place] [address] Dr. Brandi Abarca Potassium [Moles/Vol] 3.8 mmol/L Normal 3.5-5.1 [facility] Comment on above: Performed By: #### H KAREY, BNP, BMP #### [facility] [address] [place] [address] Dr. Brandi Abarca Sodium [Moles/Vol] 142 mmol/L Normal 136-145 [facility] Comment on above: Performed By: #### H KAREY, BNP, BMP #### [facility] [address] [place] [address] Dr. Brandi Abarca Urea nitrogen [Mass/Vol] 16.0 mg/dL Normal 7.0-18.0 [facility] Comment on above: Performed By: #### H KAREY, BNP, BMP #### [facility] [address] [place] [address] Dr. Brandi Abarca Urea nitrogen/Creatinine [Mass ratio] 18.0 mg/mg Normal [facility] Comment on above: Performed By: #### H KAREY, BNP, BMP #### [facility] [address] [place], [place] [address] Dr. Brandi Abarca PROTIMEon 11-09-2022 INR Coag (PPP) [Relative time] 1.00 {INR} Normal [facility] Comment on above: Performed By: #### A 1C #### [facility] [address] [place] [address] Dr. Brandi Abarca INR GUIDELINES SEE BELOW Normal [facility] Comment on above: Result Comment: NOVA RED INR: 2.0 - 3.0 CONDITIONS NOT LISTED BELOW 2.5 - 3.5 FOR PROSTHETIC HEART VALVE REPLACEMENT 2.5 - 3.5 RECURRENT THROMBOSIS Performed By: #### A 1C #### [facility] [address] [place] [address] Dr. Brandi Abarca PT Coag (PPP) [Time] 10.6 s Normal 9.0-11.6 [facility] Comment on above: Performed By: #### A 1C #### [facility] [address] [place] [address] Dr. Brandi Abarca PTTon 11-09-2022 aPTT Coag (Bld) [Time] 24.3 s Normal 22.3-36.2 [facility] Comment on above: Performed By: #### A 1C #### [facility] [address] [place] [address] Dr. Brandi Abarca PTT HEPARIN MONITORon 2022 aPTT Coag (Bld) [Time] 47.3 s Normal 39.5-54.2 [facility] Comment on above: Performed By: #### U BRENT #### [facility] [address] [place] [address] Dr. Brandi Abarca SYMPTOMATIC COVID-19 ANTIGEN on 11-09-2022 EUA Statement SEE BELOW Normal [facility] Comment on above: Result Comment: This test [...] sooner. Performed By: #### C VDAGS #### [facility] [address] [place] [address] Dr. Brandi Abarca SARS-CoV-2 (COVID-19) RNA SMILEY+probe Ql (Unsp spec) Negative Normal NEGATIVE [facility] Comment on above: Performed By: #### C VDAGS #### [facility] [address] [place] [address] Dr. Brandi Abarca TROPONIN, HIGH SENSITIVITYon 11-09-2022 HSTROP 15.6 pg/mL Normal 4.0-51.3 [facility] Comment on above: Result Comment: CUT- OFF POINTS HAVE BEEN ESTABLISHED BASED ON THE FOURTH UNIVERSAL DEFINITIONS OF MYOCARDIAL INFARCTION. THE UPPER REFERENCE LIMIT (URL) OF TROPONIN, DEFINED THE 99TH PERCENTILE OF cTnI DISTRIBUTION IN A REFERENCE POPULATION, HAS BEEN CONFIRMED THE DECISION THRESHOLD FOR [place] DIAGNOSIS. Performed By: #### H STROPN #### [facility] [address] [place] [address] Dr. Brandi Abarca HSTROP 16.4 pg/mL Normal 4.0-51.3 [facility] Comment on above: Result Comment: CUT- OFF POINTS HAVE BEEN ESTABLISHED BASED ON THE FOURTH UNIVERSAL DEFINITIONS OF MYOCARDIAL INFARCTION. THE UPPER REFERENCE LIMIT (URL) OF TROPONIN, DEFINED THE 99TH PERCENTILE OF cTnI DISTRIBUTION IN A REFERENCE POPULATION, HAS BEEN CONFIRMED THE DECISION THRESHOLD FOR [place] DIAGNOSIS. Performed By: #### H STROPN, BNP, BMP #### [facility] [address] [place] [address] Dr. Brandi Abarca URIC ACID SERUMon 11-09-2022 Urate [Mass/Vol] 4.4 mg/dL Normal 2.6-6.0 [facility] Comment on above: Performed By: #### U BRENT #### [facility] [address] [place] [address] Dr. Brandi Abarca XR CHEST 1 Von [...] by: KIMBER MALLOY Date: 2022-11-09 07:22 Normal [facility] Vital Signs Date Time Vital Sign Value Performing Clinician Facility 07-28-2024 09:56-0500 Blood Pressure Location Cyn Garza [facility] 07-28-2024 09:56-0500 Diastolic blood pressure 71 mm[Hg] Cyn Lue [facility] 07-28-2024 09:56-0500 Heart rate 84 /min Cyn Lue [facility] 07-28-2024 09:56-0500 Systolic blood pressure 122 mm[Hg] Cyn Lue [facility] 03-16-2024 15:27-0400 Body height 162.[address] [employer] MACHINE OPERATOR Work Phone: [facility] 03-16-2024 15:27-0400 Body mass index (BMI) [Ratio] 39.82 kg/m2 Ave Mackey [employer] MACHINE OPERATOR Work Phone: [facility] 03-16-2024 15:27-0400 Body temperature 98.29 [degF] Ave Mackey [employer]ATING MACHINE OPERATOR Work Phone: [facility] 03-16-2024 15:27-0400 Body weight 105.[address] Mackey [employer] MACHINE OPERATOR Work Phone: [facility] 02-23-2024 15:12-0400 Body height 162.6 cm Paige Brocwell Work Phone: [facility] 02-23-2024 15:12-0400 Body mass index (BMI) [Ratio] 39.82 kg/m2 Paige Brocwell Work Phone: [facility] 02-23-2024 15:12-0400 Body temperature 98.2 [degF] Paige Brocwell Work Phone: [facility] 02-23-2024 15:12-0400 Body weight 105.23 kg Paige Brocwell Work Phone: [facility] 02-11-2024 07:32-0400 Body temperature 97.9 [degF] Mohan Gomez MD Work Phone: [facility] 02-11-2024 07:32-0400 Diastolic blood pressure 57 mm[Hg] Mohan Gomez MD Work Phone: [facility] 02-11-2024 07:32-0400 Heart rate 85 /min Mohan Gomez MD Work Phone: [facility] 02-11-2024 07:32-0400 Respiratory rate 18 /min Mohan Gomez MD Work Phone: [facility] 02-11-2024 07:32-0400 SaO2% (BldA) [Mass fraction] 94 % Mohan Gomez MD Work Phone: [facility] 02-11-2024 07:32-0400 Systolic blood pressure 109 mm[Hg] Mohan Gomez MD Work Phone: [facility] 02-11-2024 04:32-0400 Body mass index (BMI) [Ratio] 39.93 kg/m2 Mohan Gomez MD Work Phone: [facility] 02-11-2024 04:32-0400 Body weight 105.51 kg Mohan Gomez MD Work Phone: [facility] 02-02-2024 11:44-0400 Body height 162.6 cm Paige Damon Work Phone: [facility] 02-02-2024 11:44-0400 Body mass index (BMI) [Ratio] 41.37 kg/m2 Paige Damon Work Phone: [facility] 02-02-2024 11:44-0400 Body temperature 98.8 [degF] Paige Damon Work Phone: [facility] 02-02-2024 11:44-0400 Body weight 109.32 kg Paige Damon Work Phone: [facility] 01-19-2024 14:50-0400 Body height 162.6 cm Mohan Gomez MD Work Phone: [facility] 01-19-2024 12:50-0400 Body temperature 98.2 [degF] Erik Heredia MD Work Phone: [email or web address] [facility] 01-19-2024 12:50-0400 Diastolic blood pressure 62 mm[Hg] Erik Heredia MD Work Phone: [facility] 01-19-2024 12:50-0400 Heart rate 89 /min Erik Heredia MD Work Phone: [facility] 01-19-2024 12:50-0400 Respiratory rate 16 /min Erik Heredia MD Work Phone: [email or web address] [facility] 01-19-2024 12:50-0400 SaO2% (BldA) [Mass fraction] 97 % Erik Heredia MD Work Phone: [email or web address] [facility] 01-19-2024 12:50-0400 Systolic blood pressure 137 mm[Hg] Erik Heredia MD Work Phone: [email or web address] [facility] 01-13-2024 10:00-0400 Body mass index (BMI) [Ratio] 37.24 kg/m2 Erik Heredia MD Work Phone: [email or web address] [facility] 01-13-2024 10:00-0400 Body weight 98.4 kg Erik Heredia MD Work Phone: [facility] 01-11-2024 11:55-0400 Body height 162.6 cm Erik Heredia MD Work Phone: [facility] 12-01-2023 14:19-0400 Body height 162.6 cm Erik Heredia MD Work Phone: [email or web address] [facility] 12-01-2023 14:19-0400 Body mass index (BMI) [Ratio] 38.96 kg/m2 Erik Heredia MD Work Phone: [facility] 12-01-2023 14:19-0400 Body weight 102.97 kg Erik Heredia MD Work Phone: [facility] Encounters Encounter Date Encounter Type Care Provider Facility Start: 08-09-2024 End: 08-09-2024 Clinisync Result Encounter Shaikh Joselito AL Work Phone: [facility] Unsolicited Start: 08-09-2024 End: 08-09-2024 Clinisync Result Encounter Shaikh Joselito AL Work Phone: [facility] Unsolicited Start: 08-09-2024 ambulatory Cyn Garza Facility:C [id number] Start: 07-28-2024 End: 07-28-2024 ambulatory Cyn Garza Facility:[facility] Start: 07-28-2024 End: 07-28-2024 Patient encounter procedure [facility] Start: 07-20-2024 ambulatory Cyn Garza Facility:[facility] Start: 07-18-2024 End: 07-18-2024 ambulatory Tony Lucero [facility] Work Phone: Start: 07-18-2024 End: 07-18-2024 Departed Referred [facility] Start: 07-18-2024 End: 07-18-2024 ambulatory Cyn Garza Facility:[id number] Start: 05-01-2024 End: 05-02-2024 Non-patient / Non-visit [facility] Work Phone: Start: 03-16-2024 End: 03-16-2024 Postop follow up visit related to original px Paige Damon Work Phone: [facility] Comment on above: 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) Start: 03-16-2024 End: 03-16-2024 Subsequent hospital visit by physician Paige Damon Work Phone: [facility] Start: 03-16-2024 ambulatory PAIGE DAMON [facility] Start: 02-23-2024 End: 02-23-2024 Postop follow up visit related to original px Paige Dunnalpades Work Phone: [facility] Comment on above: S/P total left hip a rthroplasty (Primary Dx) Start: 02-23-2024 ambulatory PAIGE Ramirez MELADES [facility] Start: 02-23-2024 End: 02-23-2024 Subsequent hospital visit by physician Paige Damon Work Phone: [facility] Start: 02-02-2024 End: 02-02-2024 Postop follow up visit related to original px Paige Ramirez Marisol Work Phone: [facility] Comment on above: S/P total left hip a rthroplasty (Primary Dx) Start: 02-02-2024 End: 02-02-2024 Subsequent hospital visit by physician Paige Damon Work Phone: [facility] Start: 02-02-2024 [facility] Start: 01-19-2024 End: 02-11-2024 Evaluation and management of inpatient Mohan Gomez MD Work Phone: [facility] Start: 01-11-2024 End: 01-19-2024 ambulatory TIAN KUHN [facility] Start: 01-11-2024 End: 01-19-2024 Encounter for other preprocedural examination ERIK HEREDIA [facility] Start: 01-11-2024 End: 01-19-2024 Patient encounter status Erik Heredia MD Work Phone: [facility] Start: 01-11-2024 End: 01-19-2024 Subsequent hospital visit by physician Erik Heredia MD Work Phone: [facility] Comment on above: S/P total hip arthro plasty Start: 12-22-2023 End: 12-22-2023 ambulatory [facility] Start: 12-22-2023 End: 12-22-2023 Encounter for other preprocedural examination [facility] Start: 12-16-2023 ambulatory ABHI BALTAZAR [facility] Start: 12-01-2023 End: 12-01-2023 Office outpatient new 60 minutes Erik Heredia MD Work Phone: [facility] Comment on above: Pain of left hip (Pr imary Dx) Start: 12-01-2023 End: 12-01-2023 Subsequent hospital visit by physician Erik Heredia MD Work Phone: [facility] Start: 12-01-2023 ambulatory TRUMAN BOO JR. [facility] Start: 11-03-2023 End: 11-04-2023 ambulatory TRUMAN ARRIAGA Not Available Start: 09-18-2023 End: 09-19-2023 ambulatory TIAN KUHN [facility] Start: 11-09-[address] TIAN KUHN Fac ility:[facility]1 Start: 11-09-2022 End: 11-11-2022 Evaluation and management of inpatient DR TIAN KUHN Facility:[facility] Procedures Date Procedure Procedure Detail Performing Clinician Start: 08-09-2024 ALL CBC WITH AUTO DIFF Shaikh Joselito AL Work Phone: Start: 02-11-2024 Basic metabolic pane l calcium [...] Work Phone: Start: 02-08-2024 C-reactive protein Lev Moreno MD Work Phone: Start: 02-07-2024 Basic metabolic pane l calcium total Mohan Gomez MD Work Phone: Start: 02-07-2024 C-reactive protein Lev Moreno MD Work Phone: Start: 02-06-2024 Basic metabolic pane l calcium total Mohan Gomez MD Work Phone: Start: 02-06-2024 C-reactive protein Lev Moreno MD Work Phone: Start: 02-05-2024 Basic metabolic pane l calcium total Mohan Gomez MD Work Phone: Start: 02-05-2024 C-reactive protein Lev Moreno MD Work Phone: Start: 02-04-2024 Basic metabolic pane l calcium total Mohan Gomez MD Work Phone: Start: 02-04-2024 C-reactive protein Lev Moreno MD Work Phone: Start: 02-03-2024 Urnls dip stick/tabl et rgnt auto w/o microscopy Mohan Gomez MD Work Phone: Start: 02-03-2024 Basic metabolic pane l calcium total Mohan Gomez MD Work Phone: Start: 02-03-2024 C-reactive protein Lev Moreno MD Work Phone: Start: 02-02-2024 Basic [...] MD Work Phone: Start: 01-30-2024 C-reactive protein Adriannac y Martin Moreno MD Work Phone: Start: 01-29-2024 Basic metabolic pane l calcium total Mohan Gomez MD Work Phone: Start: 01-29-2024 C-reactive protein Adriannac y Martin Moreno MD Work Phone: Start: 01-28-2024 Basic metabolic pane l calcium total Mohan Gomez MD Work Phone: Start: 01-28-2024 C-reactive protein Adriannac y Martin Moreno MD Work Phone: Start: 01-27-2024 Basic metabolic pane l calcium total Mohan Gomez MD Work Phone: Start: 01-27-2024 C-reactive protein Adriannac y F Josh AL Work Phone: Start: 01-26-2024 Basic metabolic pane l calcium total Mohan Gomez MD Work Phone: Start: 01-26-2024 C-reactive protein Adriannac y Martin Moreno MD Work Phone: Start: 01-25-2024 Basic metabolic pane l calcium total Mohan Gomez MD Work Phone: Start: 01-25-2024 C-reactive protein Nanc y F [place] MD Work Phone: Start: 01-24-2024 Iadna-dna/rna gi [...] Start: 01-17-2024 Renal function panel Sa nati Ramirez Marisol Work Phone: Start: 01-14-2024 Blood count complete auto&auto difrntl wbc [address] Mac[employer] MACHINE OPERATOR Work Phone: Start: 01-13-2024 Assay of troponin [...] examinati on pelvis 1/[address] [employer]ATING MACHINE OPERATOR Work Phone: Start: 01-11-2024 SURGICAL PATHOLOGY REQUEST [...] hip prosthesis Cyn Lue Total nephrectomy Cyn Garza Plan of Treatment Date Care Activity Detail Author Start: 02-14-2026 Tetanus vaccination [facility] Start: 07-18-2024 Bacteria identified in Urine by Culture Urine Culture [facility] Start: 07-18-2024 Urine culture [facility] Start: 03-19-2024 [facility] Start: 03-17-2024 End: 03-17-2024 Patient encounter procedure 03/17/2024 10:45 AM EDT Office Visit [facility] [address] [place] [address] Mohan Gomez MD [address] [place] [address], [place] [address] [facility] Start: 03-09-2024 End: 03-09-2024 Patient encounter procedure 03/09/2024 4:00 PM EDT Office Visit [facility] [address] [place] [address] APRN-MARGARITA [address] [place] [id number] [facility] Start: 02-23-2024 End: 02-23-2024 ambulatory [facility] Start: 02-23-2024 End: 02-23-2024 Patient encounter procedure 02/23/2024 3:00 PM EDT Office Visit [facility] [address] [place] [address] Paige Damon [address] [place] [id number] [facility] Start: 02-21-2024 End: 02-21-2024 ambulatory [facility] Start: 02-02-2024 End: 02-02-2024 Patient encounter procedure 02/02/2024 11:30 AM EDT Office Visit [facility] [address] [place] [address] Paige Damon [address] [facility] [place] [address] [facility] Start: 01-10-2024 End: 01-10-2024 Admission to same day surgery center 01/10/2024 6:45 AM EDT - 01/10/2024 8:00 AM EDT Surgery [facility] [address] [facility] [place] [address] Erik Heredia MD [address] [place] [address] ARTHROPLASTY HIP TOTAL AL [facility] Comment on above: ARTHROPLASTY HIP TOT AL AL Start: 01-10-2024 End: 01-10-2024 Arthrp acetblr/prox fem prostc agrft/algrft ARTHROPLASTY HIP TOTAL LATERAL APPROACH Osteoarthritis of left hip, unspecified osteoarthritis type 01/10/2024 6:45 AM EDT [facility] Start: 01-10-2024 Subsequent hospital visit by physician 01/10/2024 6:45 AM EDT Hospital Encounter [facility] [address] [facility] [place] [address] Erik Heredia MD [address] [place] [address] Osteoarthritis of left hip, unspecified osteoarthritis type [facility] Comment on above: Osteoarthritis of le ft hip, unspecified osteoarthritis type Start: 12-16-2023 End: 12-16-2023 Admission to establishment 12/16/2023 10:00 AM EDT Pre-Operative Nurse Assessment [facility] [address] [place] [address] [facility] Start: 03-19-2023 COVID-19 VACCINE ( season) COVID-19 VACCINE ( season) [facility] Start: 03-19-2023 [facility] Start: 10-17-2008 Pneumococcal vaccination [facility] Start: 2005 Zoster vaccine hzv l cheryl for subcutaneous use ZOSTER (SHINGLES) VACCINE (2 of 3) [facility] Start: 2005 [facility] Start: 2002 RSV VACCINE (1 - 1-d ose 60+ series) RSV VACCINE (1 - 1-dose 60+ series) [facility] Start: 10-11-1987 Screening for malign ant neoplasm of colon [facility] Start: 08-23-1985 Hepatitis B vaccination [facility] Start: 1982 Screening for malign ant neoplasm of breast [facility] Start: 10-11-1963 Screening for malign ant neoplasm of cervix [facility] Start: 1942 Screening for osteoporosis [facility] End: 01-11-2024 XR Hip - left Single view [facility] Comment on above: One Time for 1 Occur rences starting 01/11/2024 until 01/11/2024 XR Pelvis and Hip - left Views XR HIP WITH PELVIS LEFT Imaging Routine Pain of left hip 12/01/2023 2:03 PM EDT [facility] Work Phone: XR Pelvis and Hip - left Views XR HIP WITH PELVIS LEFT Imaging Routine S/P total left hip arthroplasty 02/02/2024 11:31 AM EDT [facility] XR Pelvis and Hip - left Views XR HIP WITH PELVIS LEFT Imaging Routine S/P total left hip [facility] - [facility] Views XR HIP WITH PELVIS LEFT Imaging Routine Hx of total hip arthroplasty, left 03/16/2024 2:[address] [facility] Immunizations Immunization Date Immunization Notes Care Provider [facility] 02-12-2021 influenza virus vaccine, unspecified formulation Erik Heredia MD Work Phone: [facility] 07-26-2020 SARS-CoV-2 (COVID-19 ) mRNA-1273 vaccine Cyn Garza [facility] 04-24-2020 influenza virus vaccine, unspecified formulation Cyn Garza [facility] 02-15-2016 tetanus toxoid, redu earline diphtheria toxoid, and acellular pertussis vaccine, adsorbed Cyn Lue [facility] 01-18-2016 tetanus toxoid, redu earline diphtheria toxoid, and acellular pertussis vaccine, adsorbed Cyn Lue [facility] 04-23-2014 influenza virus vaccine, unspecified formulation Cyn Lue [facility] 10-18-2007 pneumococcal conjuga te vaccine, 13 valent Cyn Lue [facility] 08-15-2005 zoster vaccine, live Cyn L ue [facility] 08-15-2005 zoster vaccine, unspecified formulation Erik Heredia MD Work Phone: [facility] 07-26-1995 hepatitis A vaccine, adult dosage Cyn Lue [facility] 07-26-1985 hepatitis B vaccine, adult dosage Cyn Lue [facility] Payers Date Payer Category Payer Self-pay 2023 Medicaid [employer] MEDICARE A DVANTAGE [id number] 2023 Medicare [id number] 1959 Medicare [id number] 1942 Unknown [id number] [id number] 1942 Unknown [id number] 2.16.840.1.811652.3.579.2.1286 1942 Unknown [id number] 2.16.840.1.260824.3.579.2.1286 1942 Unknown [id number] 2.16.840.1.424494.3.579.2.1286 1942 Unknown [id number] 2.16.840.1.547756.3.579.2.1259 1942 Unknown [id number] 2.16.840.1.642357.3.579.2.1259 1942 Unknown [id number] 2.16.840.1.199470.3.579.2.983 1942 Unknown [id number] 2.16.840.1.233847.3.579.2.983 1942 Unknown [id number] 2.16.840.1.600194.3.579.2.983 1942 Unknown [id number] 2.16.840.1.581285.3.579.2.983 1942 Unknown [id number] 2.16.840.1.768335.3.579.2.983 1942 Unknown [id number] 2.16.840.1.835565.3.579.2.983 1942 Unknown [id number] 2.16.840.1.207883.3.579.2.983 1942 Unknown [id number] 2.16.840.1.078394.3.579.2.983 1942 Unknown [id number] 2.16.840.1.514755.3.579.2.983 1942 Unknown [id number] 2.16.840.1.998091.3.579.2.983 1942 Unknown [id number] 2.16.840.1.851074.3.579.2.983 1942 Unknown [id number] 2.16.840.1.564464.3.579.2.727 1942 Unknown [id number] 2.16.840.1.024668.3.579.2.727 Unknown [id number] 2.16.840.1.698390.3.579.2.531 Social History Date Type Detail Facility Start: 11-03-2023 End: 12-01-2023 Tobacco smoking status NHIS Never smoked tobacco [facility] Start: 11-03-2023 End: 12-01-2023 Tobacco use and exposure Smokeless tobacco non-user [facility] Start: 12-01-2023 End: 03-16-2024 Alcoholic beverage intake Lifetime non-drinker (finding) [facility] Start: 11-03-2023 End: 12-01-2023 History of Social function [facility] Start: 11-03-2023 End: 12-01-2023 Tobacco use panel [facility] Start: 1940 Sex assigned at Not on file [employer] Has the Slack, or Wiki[employer] threatened to shut off services in your home in past 12Mo No [facility] (I/We) worried david er (my/our) food would run out before (I/we) got money to buy more. Never true [employer] In the past 12 month s, has lack of transportation kept you from medical appointments or from getting medications? No [facility] How hard is it for y ou to pay for the very basics like food, housing, medical care, and heating Not very hard [employer] Tobacco smoking stat us DEIS Unknown if ever smoked [facility] Work Phone: Start: 07-19-2024 Sex Female (finding) [facility] Start: 1940 Sex Assigned At Female [facility] Medical Equipment Procedure Code Equipment Code Equipment Origin al Text Equipment Identifier Dates [id number] Start: 01-11-2024 [id number] Start: 01-11-2024 [id number] Start: 01-11-2024 [id number] Start: 01-11-2024 [id number] Start: 01-11-2024 [id number] Start: 01-11-2024 [id number] Start: 01-11-2024 [id number] Start: 01-11-2024 [id number] Start: 01-11-2024 [id number] Start: 01-11-2024 Functional Status Date Assessment Result Facility 07-28-2024 Functional Status N/A [facility] Clinical Notes 12-01-2023 to 07-28-2024 Alhaji Dickinson, FIDEL - 03/16/2024 3:00 PM RENE Coon - 03/16/2024 3:00 PM Rodri Dickinson, FIDEL - 02/23/2024 3:00 PM Tylor Damon - [...] Follow these instructions at home: Medicines Take runv-jjs-ywhjzps and prescription medicines only as told by [...] to keep your pee pale yellow. ?Take znni-xmw-slfzxos or prescription medicines. ?Eat foods that are [...] provider. Document Revised: 03/05/2023 Document Reviewed: 03/05/2023 [employer] Patient Education 2023 [employer]. 07/28/2024 10:34:03 Laser Therapy for Kidney Stones [...] including vitamins, herbs, eye drops, creams, and vuhp-ecs-mwjpmts medicines. Any problems you or family members [...] unless your provider tells you to. ?Taking sbzv-bed-oahrwvk medicines, vitamins, herbs, and supplements. Tests You [...] provider. Document Revised: 03/05/2023 Document Reviewed: 03/05/2023 [employer] Patient Education 2023 [employer]. Follow Up Care 07/27/2024 16:37:35 With:Greg AL, STEFFI Castellanos, URO Address: When: Unknown [facility] 07-28-2024 Note Patient Education Nephrology Laser Therapy [...] these instructions at home: Medicines ??? Take egdw-mpb-rscmumt and prescription medicines only as told by [...] keep your pee pale yellow. ? Take pezq-nkm-epfiwlq or prescription medicines. ? Eat foods that [...] provider. Document Revised: 03/05/2023 Document Reviewed: 03/05/2023 [employer] Patient Education ? 2023 [employer] Laser Therapy for Kidney Stones Laser therapy [...] including vitamins, herbs, eye drops, creams, and pwho-psf-qafdntv medicines. ??? Any problems you or family [...] and drink. Thes (more content not included)... [facility] 03-16-2024 History of Presen t illness Narrative Ortho Nurse - Established Patient Intake Room#: 4 01/11/24 ARTHROPLASTY HIP TOTAL AL left Patient arrives with her grandson in her wheelchair. She is an 83 year old female. She has no complaints and is hoping to move to weight bearing status. Date: 03/16/2024 3:22 PM Patient: Cuate Goodman MR#: [id number] : 1940 Age: 83 y.o. Referring Physician: Self, Self Insurance: Payor: MEDICARE [employer] HMO OR PPO / Plan: MEDICARE [facility] PPO / Product Type: *No Product type* [...] SUBJECTIVE: Cuate is an established patient of [facility]. Here today for followup. She is now [...] any questions or concerns in the meantime. (DOC:[id number]) I have reviewed the findings of the clinical administrative support coordinator and agree with their assessment. Ave Mackey APRN-HARDBOARD COATING MACHINE OPERATOR Ortho Nurse - Established Patient Intake Room#: 4 01/11/24 ARTHROPLASTY HIP TOTAL AL left Patient arrives with her grandson in her wheelchair. She is an 83 year old female. She has no complaints and is hoping to move to weight bearing status. Date: 03/16/2024 3:22 PM Patient: Cuate Goodman MR#: [id number] : 1940 Age: 83 y.o. Referring Physician: [...] oxycodone, and penicillins. documented in this encounter [facility] 02-23-2024 History of Presen t illness Narrative Ortho Nurse - Established Patient Intake Room#: 6 Patient is an 83 year old female who arrives for 6 week postop (01/11/24) left [facility]. Patient is experiencing 8/10 in pain while [...] 02/23/2024 2:58 PM Patient: Cuate Goodman MR#: [id number] : 1940 Age: 83 y.o. Referring Physician: [...] time. All pertinant portions of the clinical administrative support coordinator documentation was reviewed. Paige Damon I have reviewed the findings of the clinical administrative support coordinator and agree with their assessment. Paige [...] 02/23/2024 2:58 PM Patient: Cuate Goodman MR#: [id number] : 1940 Age: 83 y.o. Referring Physician: Self, Self Insurance: Payor: MEDICARE [employer] HMO OR PPO / Plan: MEDICARE [employer] PPO / Product Type: *No Product [...] Laterality: Left; Surgeon: Erik Heredia MD; Location: [facility] OR NEPHRECTOMY Right 1978 CHOLECYSTECTOMY HIP [...] morphine, oxycodone, and penicillins. documented in this [facility] 02-11-2024 Hospital course Narrative Images from [...] Department Dept Phone 02/21/2024 8:45 AM Janet Salazar [place] [facility] Infectious Disease [phone] 02/23/2024 3:00 PM [facility] [phone] documented in this encounter [facility] 02-11-2024 Miscellaneous Notes Patient discharged with all belongings via wheelchair by staff to private residence. Motion Picture Equipment Supervisor provided patient with AVS. Motion Picture Equipment Supervisor educated patient on entire AVS, including but not limited to, follow-up appointments, prescriptions, home medications (new, continued, and stopped), next med dose due date and times, discharge activity and diet, and discharge education based on diagnoses. Patient verbalized understanding of all AVS education provided by public relations writer. Problem: Adult Inpatient Plan of Care [...] & FWW Patient will demonstrate ability to orange picking supervisor object from the floor with supervision and LRAD in order to promote independence in the home and demonstrate functional balance improvements in the rehabilitation program. Supervision with photography editor & FWW Patient will perform car transfer [...] setting. NT Patient will demonstrate ability to orange picking supervisor object from the floor with supervision and LRAD in order to promote independence in the home and demonstrate functional balance improvements in the rehabilitation program. SBA to CGA with photography editor & FWW Patient will perform car transfer [...] 02/01 to transport her fellow up to [facility]. Dr Gomez rounding on patient. Problem: [...] and treatment assumed from JANN Welch/Karin at [facility]. JANN Travis/Karin 01/26/2024 Problem: Adult Inpatient Plan [...] Outcome: Progressing Report received from ALLY Gomez, nurse quality. Patient up in recliner. Awake but drowsy. [...] Optimal Mobility Outcome: Progressing Patient transferred to [facility]. Does not follow TTWB precautions. Becomes upset [...] alarm in place. documented in this encounter [facility] 02-11-2024 Miscellaneous Notes Patient discharged with all belongings via wheelchair by staff to private residence. Motion Picture Equipment Supervisor provided patient with AVS. Motion Picture Equipment Supervisor educated patient on entire AVS, including but not limited to, follow-up appointments, prescriptions, home medications (new, continued, and stopped), next med dose due date and times, discharge activity and diet, and discharge education based on diagnoses. Patient verbalized understanding of all AVS education provided by public relations writer. Problem: Adult Inpatient Plan of Care [...] & FWW Patient will demonstrate ability to orange picking supervisor object from the floor with supervision and LRAD in order to promote independence in the home and demonstrate functional balance improvements in the rehabilitation program. Supervision with photography editor & FWW Patient will perform car transfer [...] setting. NT Patient will demonstrate ability to orange picking supervisor object from the floor with supervision and LRAD in order to promote independence in the home and demonstrate functional balance improvements in the rehabilitation program. SBA to CGA with photography editor & FWW Patient will perform car transfer [...] promote additional improvement in functional mobility. Erik Juilo, PT Waldemar will be picking up pt at 10:15 am 02/01 to transport her fellow up to [facility]. Dr Gomez rounding on patient. Problem: [...] of OT POC and treatment assumed from YASH Welch at [facility]. YASH Travis 01/26/2024 Problem: Adult Inpatient Plan [...] RN called in to patient room by Shyam, PAN CLEANER. Patient sitting on commode. Lizabeth PT, standing [...] Outcome: Progressing Report received from ALLY Gomez, nurse quality. Patient up in recliner. Awake but drowsy. [...] Optimal Mobility Outcome: Progressing Patient transferred to [facility]. Does not follow TTWB precautions. Becomes upset [...] alarm in place. documented in this encounter [facility] 02-11-2024 History of Presen t illness Narrative 02/11/24 0917 Time In/Out OT Therapy Completed Attempted Attempted Reason Patient declined session;Other (see comments) (pt refused any OT this date- reports that she is leaving today and will be fine, declined any questions or concerns including ADL adaptations, has a HEP with jet and reports that she is I and [...] Daily, Mohan Gomez MD, 100 mg at 02/10/24841 apixaban (ELIQUIS) tablet 5 mg, 5 mg, [...] Q12H, Mohan Gomez MD, 100 mg at 02/10/24841 ferrous sulfate tablet 325 mg, 325 mg, Oral, Daily, Mohan Gomez MD, 325 mg at 02/10/24841 fluconazole (DIFLUCAN) tablet 150 mg, 150 mg, Oral, Daily, Janet Moreno MD, 150 mg at 02/10/24 08 hydroCODone-acetaminophen (NORCO) 5-325 MG per tablet 1 [...] Date: 01/19/2024 Date of Evaluation: 49:[address] [facility] LOS: 22 days IMPRESSION AND PLAN: [...] In process LABS Labs-ABGs Labs-CBC @CBCBRIEFROUNDS@ Labs-Chem 7([facility]) Bun/Creat/Cl/CO2/Glucose: 19/0.80/105/29/97 (02/10 436) Na/K+/Phos/Mg/Ca: [...] bilateral inner thigh areas have improved. Are flat drier. Less irritation and pain. Patient was using [...] CARE Score - Sit to Stand 5 Chair/Pim-te-Pcrgo Transfer Assistance Needed Set-up / clean-up;Adaptive equipment Physical Assistance Level No physical assistance CARE Score - Chair/Tyo-ag-Cnwlx Transfer 5 Toilet Transfer Assistance Needed Set-up [...] Date: 01/19/2024 Date of Evaluation: 1:[address] [facility] LOS: 21 days IMPRESSION AND PLAN: [...] In process LABS Labs-ABGs Labs-CBC @CBCBRIEFROUNDS@ Labs-Chem 7([facility]) Bun/Creat/Cl/CO2/Glucose: 20/0.90/104/28/103 (02/08 449) Na/K+/Phos/Mg/Ca: [...] Date: 01/19/2024 Date of Evaluation: 47:[address] [facility] LOS: 20 days IMPRESSION AND PLAN: [...] In process LABS Labs-ABGs Labs-CBC @CBCBRIEFROUNDS@ Labs-Chem 7([facility]) Bun/Creat/Cl/CO2/Glucose: 14/0.80/104/30/96 (02/07 450) Na/K+/Phos/Mg/Ca: [...] Other Reaction(s): GI intolerance Penicillins Hives Vitals: 02/07/24194002/07/24195202/08/2459902/08/24711 BP: 121/71 108/65 Pulse: 94 92 Resp: [...] a walk in shower and grab bars. CAMMIE discussed Home Health with patient. She denied [...] confirmed she is current with her PCP, CAMMIE encouraged her to follow up with PCP [...] Date: 01/19/2024 Date of Evaluation: 1:[address] [facility] LOS: 19 days IMPRESSION AND PLAN: [...] In process LABS Labs-ABGs Labs-CBC @CBCBRIEFROUNDS@ Labs-Chem 7([facility]) Bun/Creat/Cl/CO2/Glucose: 11/0.70/105/27/95 (02/07 436) Na/K+/Phos/Mg/Ca: [...] XL 4 mg, 4 mg, Oral, Daily, Moahn Gomez MD, 4 mg at 02/07/24 0908 [...] a 83 y.o. female was admitted to [facility] for: 1. S/P total left hip arthroplasty 2. Status post total replacement of left hip Nutrition Assessment Subjective assessment / comments: Pt has been admitted to swing bed for strengthening/rehab needs 2/2 s/p hip arthroplasty by Dr. Heredia. Patient with fair oral intakes noted and mentioned to FNS senior logistics manager the was getting tired of same [...] (227 lb) 12/01/23 103 kg (227 lb) [place] body weight: 54.7 kg (120 lb 9.5 [...] WBC 5.1 02/07/2024 RBC 3.23 (L) 02/07/2024 [id number] 16.9 01/20/2024 PMH & PSH: Past Medical [...] Continue OT per Plan of Care. DEVIN Mendoza/Karin 02/07/24 1028 Occupational Therapy Minutes Start Time [...] Transfer Skill: Sit To Stand, Rehab Eval Hollis (Sit-Stand Transfers) supervision Physical Assist/Nonphysical Assist: Sit/Stand supervision Weight-Bearing Restrictions: Sit/Stand toe touch weight-bearing Assistive Device For Transfer: Sit/Stand 2 wheeled walker Gait Skills, PT Eval Level of Hollis: Gait supervision Physical Assist/Nonphysical Assist: Gait 1 [...] reach. DAILY PROGRESS NOTE Admit Date: 01/19/2024 [facility] LOS: 19 days IMPRESSION AND PLAN: [...] In process LABS Labs-ABGs Labs-CBC @CBCBRIEFROUNDS@ Labs-Chem 7([facility]) Bun/Creat/Cl/CO2/Glucose: 17/0.80/104/29/100 (02/05 453) Na/K+/Phos/Mg/Ca: [...] to maintain TTWB on LLE pt ambulated [id number] and 75ftx1 with X1 seated rest; pt [...] the wound which is ongoing. Wound is flat drier but still has mild erythema. No pain [...] Date: 01/19/2024 Date of Evaluation: 0:[address] [facility] LOS: 17 days IMPRESSION AND PLAN: [...] In process LABS Labs-ABGs Labs-CBC @CBCBRIEFROUNDS@ Labs-Chem 7([facility]) Bun/Creat/Cl/CO2/Glucose: 14/0.80/104/30/101 (02/04 525) Na/K+/Phos/Mg/Ca: [...] Transfer Skill: Sit To Stand, Rehab Eval Hollis (Sit-Stand Transfers) contact guard Physical Assist/Nonphysical Assist: Sit/Stand verbal cues;supervision Transfer Skill: Toilet Transfer, Rehab Eval Assistive Device grab bars;2 wheeled walker Grooming Hollis Level (Grooming) grooming skills;hair care, combing/brushing;wash face, hands;contact guard assist (CGA while standing at sink with mod cues to facilitate TTWB.) Physical Assist/Nonphysical Assist supervision;verbal cues Lower Body Dressing Level of Hollis contact guard Physical Assist/Nonphysical Assist supervision;verbal cues Assistive Device photography editor Toileting Level of Hollis contact guard Physical Assist/Nonphysical Assist supervision;verbal cues Pt required extra time for task completion on this date. Pt would benefit from further training to ensure TTWB is maintained throughout ADLs/functional mobility. All needs met prior to exiting. Radha Daphne PRAKASH/L 02/05/24 1119 Physical Therapy Minutes Start Time 1119 Stop Time 1136 Time Calculation 17 PT Individual Minutes 17 minutes General Pain Documentation (Adult, OB, Peds) Presence of Pain denies pain/discomfort Presence of Pain Score (Auto-calculated) 0 Pt finishing with PRAKASH when this PAN CLEANER arrived; PAN CLEANER observed pt being increasingly rude and aggravated with PRAKASH; pt asked if she needed a break or if she was willing to work with this PAN CLEANER pt stated No! I guess Ill do it now and get it over with but I'm not doing anything that I dont have to; dont ask me to do extra ; therapist asked pt to assist with moving BLE for supine to sit transfer; pt refused to assist and demanded PAN CLEANER to move BLE; therapist provided max assist [...] 100 mg, 100 mg, Oral, Daily, Mohan Gmoez MD, 100 mg at 02/05/24 1023 apixaban [...] any urinary symptoms and UA bland, culture 7/5 negative Inflammatory markers -check Trends -CRP 58, [...] DAILY PROGRESS NOTE ] Admit Date: 01/19/2024 [facility] LOS: 17 days IMPRESSION AND PLAN: [...] In process LABS Labs-ABGs Labs-CBC @CBCBRIEFROUNDS@ Labs-Chem 7([facility]) Bun/Creat/Cl/CO2/Glucose: 18/0.80/104/31/96 (02/03 525) Na/K+/Phos/Mg/Ca: [...] Mohan Gomez MD, 650 mg at 02/02/24934 Allopurinol (ZYLOPRIM) tablet 100 mg, 100 mg, Oral, Daily, Mohan Gomez MD, 100 mg at 02/04/24903 apixaban (ELIQUIS) tablet 5 mg, 5 mg, Oral, Q12H, Mohan Gomez MD, 5 mg at 02/04/24 0904 bisacodyl (DULCOLAX) suppository 10 mg, 10 mg, Rectal, Daily PRN, Mohan Gomez MD Cyclobenzaprine (FLEXERIL) tablet 5 mg, 5 mg, Oral, Q12H, Mohan Gomez MD, 5 mg at 02/04/24903 Docusate (COLACE) capsule 100 mg, 100 mg, Oral, Q12H, Mohan Gomez MD, 100 mg at 02/04/24903 ferrous sulfate tablet 325 mg, 325 mg, Oral, Daily, Mohan Gomez MD, 325 mg at 02/04/24 0904 hydroCODone-acetaminophen (NORCO) 5-325 MG per tablet 1 tablet, 1 tablet, Oral, Q4H PRN, Mohan Gomez MD, 1 tablet at 02/04/2403 hydroCODone-acetaminophen (NORCO) 5-325 MG per tablet 2 tablet, 2 tablet, Oral, Q4H PRN, Mohan Gomez MD, 2 tablet at 02/04/24 0026 lactulose (CHRONULAC) oral solution 20 g, 20 g, Oral, TID PRN, Mohan Gomez MD Lisinopril (PRINIVIL) tablet 5 mg, 5 mg, Oral, Daily, Mohan Gomez MD, 5 mg at 02/04/24 0904 multivitamin tablet 1 tablet, 1 tablet, Oral, Daily, Mohan Gomez MD, 1 tablet at 02/04/24 0904 Ondansetron (ZOFRAN) tablet 4 mg, 4 mg, [...] Other Reaction(s): GI intolerance Penicillins Hives Vitals: 02/03/24200902/04/2461702/04/24 07502/04/24 075 BP: 132/62 114/58 Pulse: 88 85 Resp: Temp: 98 degrees F (36.7 degrees C) [...] Date: 01/19/2024 Date of Evaluation: 1:[address] [facility] LOS: 15 days IMPRESSION AND PLAN: [...] In process LABS Labs-ABGs Labs-CBC @CBCBRIEFROUNDS@ Labs-Chem 7([facility]) Bun/Creat/Cl/CO2/Glucose: 17/0.90/104/29/100 (02/03 552) Na/K+/Phos/Mg/Ca: [...] MaxA+2.Attempted to have pt try using leg catering and events manager although pt stated I can't when asked [...] with SBA-CGA for balance using FWW and photography editor with set up while seated. Donned underwear using photography editor while seated and SBA-CGA to don over waist using FWW. CARE Score - Lower Body Dressing 4 Putting On/Taking Off Footwear Assistance Needed Physical assistance Physical Assistance Level Total assistance Comment Declined use of equipment CARE Score - Putting On/Taking Off Footwear 1 Toileting Hygiene Assistance Needed Incidental touching;Adaptive equipment Comment SBA-CGA using FWW CARE Score - Toileting Hygiene 4 Chair/Eww-cd-Lqasv Transfer Assistance Needed Incidental touching;Adaptive equipment Comment SBA-CGA using FWW (initial CGA, as first time standing from chair this AM per pt report) CARE Score - Chair/Ehl-vm-Bdvgh Transfer 4 Toilet Transfer Assistance Needed Incidental [...] Q12H, Mohan Gomez MD, 100 mg at 07/18/24 0942 ferrous sulfate tablet 325 mg, 325 mg, Oral, Daily, Mohan Gomez MD, 325 mg at 02/03/24941 hydroCODone-acetaminophen (NORCO) 5-325 MG per tablet 1 tablet, 1 tablet, Oral, Q4H PRN, Mohan Gomez MD, 1 tablet at 02/03/24815 hydroCODone-acetaminophen (NORCO) 5-325 MG per tablet 2 [...] or two, then I will stay here. COSMETOLOGIST APPRENTICE informs Cuate that her insurance review was 01/31/24 and determination is still pending. Cuate agreeable for forensic social worker to update her once insurance determination is known. CM will continue to follow. MATT Suarez 02/03/2024 8:17 AM DAILY PROGRESS NOTE Admit Date: 01/19/2024 Date of Evaluation: 0:[address] [facility] LOS: 14 days IMPRESSION AND PLAN: [...] In process LABS Labs-ABGs Labs-CBC @CBCBRIEFROUNDS@ Labs-Chem 7([facility]) Bun/Creat/Cl/CO2/Glucose: 18/0.90/103/30/103 (02/01 514) Na/K+/Phos/Mg/Ca: [...] Mohan Gomez MD, 100 mg at 02/02/24835 ferrous sulfate tablet 325 mg, 325 mg, Oral, Daily, Mohan Gomez MD, 325 mg at 02/02/24835 hydroCODone-acetaminophen (NORCO) 5-325 MG per tablet 1 [...] Mohan Gomez MD, 5 mg at 02/02/24834 multivitamin tablet 1 tablet, 1 tablet, Oral, Daily, Mohan Gomez MD, 1 tablet at 02/02/2435 Nystatin (MYCOSTATIN) oral suspension 500,000 Units, 500,000 Units, Swish & Swallow, 4x daily, Janet Moreno MD, 500,000 Units at 02/02/24834 Ondansetron (ZOFRAN) tablet 4 mg, 4 mg, Oral, Q4H PRN, Mohan Gomez MD, 4 mg at 02/02/24 08 Pantoprazole (PROTONIX) tablet DR 40 mg, 40 mg, Oral, Daily, Mohan Gomez MD, 40 mg at 02/02/24835 Polyethylene glycol (MIRALAX) packet 17 g, 17 [...] Date: 01/19/2024 Date of Evaluation: 49:[address] [facility] LOS: 13 days IMPRESSION AND PLAN: [...] Patient Name: CUATE GOODMAN Med. Rec. #: [id number] Physician: ERIK HEREDIA Specimen(s) Received Left femoral [...] articular cartilage degeneration. Sectioning reveals unremarkable bone. Extension Work Instructor sections are submitted in one cassette and placed in decalcification solution prior to processing. Billing Fee Code(s) A: 64630, 01864 WBC (WHITE BLOOD COUNT) 01/12/2024 10.5 3.6 [...] and . LABS Labs-ABGs Labs-CBC @CBCBRIEFROUNDS@ Labs-Chem 7([facility]) Bun/Creat/Cl/CO2/Glucose: 14/0.90/103/28/98 (01/31 434) Na/K+/Phos/Mg/Ca: [...] alarm flashing green and all needs met. INDEPENDENT LIVING SPECIALIST made aware pt needs assistance with donning [...] wheeled walker;other (see comment) (Pt used leg catering and events manager for car transfers.) Gait Assessment Gait Comments [...] Assistance Level No physical assistance Comment using photography editor pt picked up 4 items off the [...] Mohan Gomez MD, 5 mg at 02/01/24 09 bisacodyl (DULCOLAX) suppository 10 mg, 10 mg, [...] PRN, Mohan Gomez MD, 2 tablet at 01/31/24 225 lactulose (CHRONULAC) oral solution 20 g, 20 [...] Daily, Mohan Gomez MD, 40 mg at 02/01/24 09 Polyethylene glycol (MIRALAX) packet 17 g, [...] Height: Intake/Output Summary (Last 24 hours) at 02/01/20241932 Last data filed at 02/01/2024 1700 Gross [...] Date: 01/19/2024 Date of Evaluation: 2:[address] [facility] LOS: 13 days IMPRESSION AND PLAN: [...] Surgical Final Report Patient Name: CUATE GOODMAN [facility]. Rec. #: [id number] Physician: ERIK HEREDIA Specimen(s) Received Left femoral [...] articular cartilage degeneration. Sectioning reveals unremarkable bone. Extension Work Instructor sections are submitted in one cassette and placed in decalcification solution prior to processing. Billing Fee Code(s) A: 94475, 08763 WBC (WHITE BLOOD COUNT) 01/12/2024 10.5 3.6 [...] and . LABS Labs-ABGs Labs-CBC @CBCBRIEFROUNDS@ Labs-Chem 7([facility]) Bun/Creat/Cl/CO2/Glucose: 12/.10/102/33/94 (01/31 612) Na/K+/Phos/Mg/Ca: [...] and treatment transferred to JANN Welch/Karin at [facility]. JANN Travis/Karin 01/31/2024 01/31/24 1415 Physical Therapy Minutes Start [...] Mohan Gomez MD, 5 mg at 01/31/24 09 Docusate (COLACE) capsule 100 mg, 100 mg, Oral, Q12H, Mohan Gomez MD, 100 mg at 01/31/24908 ferrous sulfate tablet 325 mg, 325 mg, Oral, Daily, Mohan Gomez MD, 325 mg at 01/31/24 09 hydroCODone-acetaminophen (NORCO) 5-325 MG per tablet 1 tablet, 1 tablet, Oral, Q4H PRN, Mohan Gomez MD, 1 tablet at 01/31/24 1352 hydroCODone-acetaminophen (NORCO) 5-325 MG per tablet 2 tablet, 2 tablet, Oral, Q4H PRN, Mohan Gomez MD, 2 tablet at 01/30/24 2357 lactulose (CHRONULAC) oral solution 20 g, 20 g, Oral, TID PRN, Mohan Gomez MD Lisinopril (PRINIVIL) tablet 5 mg, 5 mg, Oral, Daily, Mohan Gomez MD, 5 mg at 01/30/24 0855 multivitamin tablet 1 tablet, 1 tablet, Oral, Daily, Mohan Gomez MD, 1 tablet at 01/31/24 0909 nystatin (NYSTOP;MYCOSTATIN) powder 1 Application, 1 Application, Topical, 4x daily, Mohan Gomez MD, 1 Application at 01/31/24 1353 Ondansetron (ZOFRAN) tablet 4 mg, 4 mg, Oral, Q4H PRN, Mohan Gomez MD, 4 mg at 01/30/24 204 Pantoprazole (PROTONIX) tablet DR 40 mg, 40 mg, Oral, Daily, Mohan Gomez MD, 40 mg at 01/31/24 09 Polyethylene glycol (MIRALAX) packet 17 g, [...] Date: 01/19/2024 Date of Evaluation: 46:[address] [facility] LOS: 11 days IMPRESSION AND PLAN: [...] Patient Name: CUATE GOODMAN Med. Rec. #: [id number] Physician: ERIK HEREDIA Specimen(s) Received Left femoral [...] articular cartilage degeneration. Sectioning reveals unremarkable bone. Extension Work Instructor sections are submitted in one cassette and placed in decalcification solution prior to processing. Billing Fee Code(s) A: 35239, 36025 WBC (WHITE BLOOD COUNT) 01/12/2024 10.5 3.6 [...] and . LABS Labs-ABGs Labs-CBC @CBCBRIEFROUNDS@ Labs-Chem 7([facility]) Bun/Creat/Cl/CO2/Glucose: 04/18.00/101/31/93 (01/29 415) Na/K+/Phos/Mg/Ca: 135/4.4/--/--/8.6 (01/29 0415) Labs-Coags WBC (WHITE BLOOD COUNT) Date Value [...] Therapy Minutes Start Time 0931 Stop Time 0931 Time Calculation 0 PT Individual Minutes 0 [...] Mohan Gomez MD, 1 tablet at 01/30/24 0855 nystatin (NYSTOP;MYCOSTATIN) powder 1 Application, 1 Application, Topical, 4x daily, Mohan Gomez MD, 1 Application at 01/27/242128 Ondansetron (ZOFRAN) tablet 4 mg, 4 mg, Oral, Q4H PRN, Mohan Gomez MD, 4 mg at 01/30/24 08 Pantoprazole (PROTONIX) tablet DR 40 mg, 40 mg, Oral, Daily, Mohan Gomez MD, 40 mg at 01/30/24 08 Polyethylene glycol (MIRALAX) packet 17 g, 17 [...] Mohan Gomez MD, 2 tablet at 01/22/24 2101 Sulfamethoxazole-trimethoprim (BACTRIM DS) 800-160 MG per tablet [...] 1.00 01/30/2024 GLUCOSE 93 01/30/2024 Micro [facility] 02-02-2024 History of Presen t illness Narrative Ortho Nurse - Established Patient Intake Room#: Cast room Patient is an 83 year old female who arrives in a wheel chair for her 3 week follow up after LHTA-AL on 01/11/24. She states she is not in any pain today and states her pain is controlled well. She is using [place] codone acetaminophen for pain relief as well as Tylenol prn. Her leg is wrapped instead of JOSAFAT hose and she is using Eliquis for DVT preventation. She is following touch down weight bearing protocol. Date: 02/02/2024 11:34 AM Patient: Cuate Goodman MR#: [id number] : 1940 Age: 83 y.o. Referring Physician: [...] tablet 5 mg, 5 mg, Oral, Q12H, oMhan Gomez MD, 5 mg at 02/02/24 0836 [Sep - Suspended Admission] bisacodyl (DULCOLAX) suppository 10 mg, 10 mg, Rectal, Daily PRN, Mohan Gomez MD [Sep - Suspended Admission] Cyclobenzaprine (FLEXERIL) tablet 5 mg, 5 mg, Oral, Q12H, Mohan Gomez MD, 5 mg at 02/02/24 08 [Sep - Suspended Admission] Docusate (COLACE) capsule 100 mg, 100 mg, Oral, Q12H, Mohan Gomez MD, 100 mg at 02/02/24 08 [Sep - Suspended Admission] ferrous sulfate tablet [...] Gomez MD, 1 tablet at 02/02/24 0835 [[facility] - Suspended Admission] Nystatin (MYCOSTATIN) oral suspension 500,000 Units, 500,000 Units, Swish & Swallow, 4x daily, Janet Moreno MD, 500,000 Units at 02/02/24 0835 [[facility] - Suspended Admission] Ondansetron (ZOFRAN) tablet 4 mg, 4 mg, Oral, Q4H PRN, Mohan Gomez MD, 4 mg at 02/02/24 0840 [[facility] Hold - Suspended Admission] Pantoprazole (PROTONIX) tablet DR 40 mg, 40 mg, Oral, Daily, Mohan Gomez MD, 40 mg at 02/02/24 0836 [[facility] Hold - Suspended Admission] Polyethylene glycol (MIRALAX) packet 17 g, 17 g, Oral, Q12H, Mohan Gomez MD, 17 g at 01/30/242043 [[facility] Hold - Suspended Admission] Polyethylene glycol (MIRALAX) packet 17 g, 17 g, Oral, TID PRN, Mohan Gomez MD [[facility] Hold - Suspended Admission] senna-docusate (SENOKOT-S) 8.6-50 MG per tablet 2 tablet, 2 tablet, Oral, Q12H, Mohan Gomez MD, 2 tablet at 01/30/242043 [[facility] Hold - Suspended Admission] Tolterodine (DETROL-LA) capsule [...] pain today. She is using Tylenol and Milan for pain control and Eliquis for DVT prophylaxis along with JOSAFAT hose. She reports she is anxious to get home. Of note, Dr. Moreno was consulted upon arrival to [facility] due to concerns for SSI with [...] post. -Patient is made aware discharge from [facility] will be left up to the team [...] arise. All pertinant portions of the clinical administrative support coordinator documentation was reviewed. Paige Damon I have reviewed the findings of the clinical administrative support coordinator and agree with their assessment. 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 She states she is not in any pain today and states her pain is controlled well. She is using [place] codone acetaminophen for pain relief as well as Tylenol prn. Her leg is wrapped instead of JOSAFAT hose and she is using Eliquis for DVT preventation. She is following touch down weight bearing protocol. Date: 02/02/2024 11:34 AM Patient: Cuate Goodman MR#: [id number] : 1940 Age: 83 y.o. Referring Physician: [...] tablet 5 mg, 5 mg, Oral, Q12H, Moahn Gomez MD, 5 mg at 02/02/24 0836 [[facility] - Suspended Admission] Docusate (COLACE) capsule 100 mg, 100 mg, Oral, Q12H, Mohan Gomez MD, 100 mg at 02/02/24 0836 [[facility] - Suspended Admission] ferrous sulfate tablet 325 mg, 325 mg, Oral, Daily, Mohan Gomez MD, 325 mg at 02/02/24 0836 [[facility] - Suspended Admission] hydroCODone-acetaminophen (NORCO) [...] g, Oral, TID PRN, Mohan Gomez MD [[facility] - Suspended Admission] Lisinopril (PRINIVIL) tablet 5 mg, 5 mg, Oral, Daily, Mohan Gomez MD, 5 mg at 02/02/24 0835 [[facility] - Suspended Admission] multivitamin tablet 1 tablet, 1 tablet, Oral, Daily, Mohan Goemz MD, 1 tablet at 02/02/24 0835 [[facility] - Suspended Admission] Nystatin (MYCOSTATIN) oral suspension 500,000 Units, 500,000 Units, Swish & Swallow, 4x daily, Janet Moreno MD, 500,000 Units at 02/02/24 0835 [[facility] - Suspended Admission] Ondansetron (ZOFRAN) tablet 4 mg, 4 mg, Oral, Q4H PRN, Mohan Gomez MD, 4 mg at 02/02/24 0840 [[facility] - Suspended Admission] Pantoprazole (PROTONIX) tablet DR 40 mg, 40 mg, Oral, Daily, Mohan Gomez MD, 40 mg at 02/02/24 0836 [[facility] - Suspended Admission] Polyethylene glycol (MIRALAX) packet 17 g, 17 g, Oral, Q12H, Mohan Gomez MD, 17 g at 01/30/244 [[facility] Hold - Suspended Admission] Polyethylene glycol (MIRALAX) packet 17 g, 17 g, Oral, TID PRN, Mohan Gomez MD [[facility] - Suspended Admission] senna-docusate (SENOKOT-S) 8.6-50 MG per tablet 2 tablet, 2 tablet, Oral, Q12H, Mohan Gomez MD, 2 tablet at 01/30/242043 [[facility] - Suspended Admission] Tolterodine (DETROL-LA) capsule XL 4 mg, 4 mg, Oral, Daily, Mohan Gomez MD, 4 mg at 02/02/24 08 [[facility] - Suspended Admission] Zolpidem (AMBIEN) tablet 5 mg, 5 mg, Oral, QHS PRN, Mohan Gomez MD, 5 mg at 02/01/24 2306 Allergies: She is allergic to morphine, oxycodone, and penicillins. documented in this encounter [facility] 01-21-2024 Consult note Associated Order (s): [...] intolerance Penicillins Hives Vitals: 01/20/24 1941 01/20/24202501/21/2417 01/21/2422 BP: 138/84 142/69 Pulse: 87 65 Resp: [...] Janet Moreno MD documented in this encounter [facility] 01-21-2024 Consult note Associated Order (s): [...] Janet Moreno MD documented in this encounter [facility] 01-19-2024 History and physical note I saw Cuate Goodman at [facility] Assessment/Plan: 83 y.o. female with history [...] CREATSERUM 0.70 01/13/2024 documented in this encounter [facility] 01-19-2024 History and physical note I saw Cuate Goodman at [facility] Assessment/Plan: 83 y.o. female with history [...] CREATSERUM 0.70 01/13/2024 documented in this encounter [facility] 01-19-2024 Nurse Note AVS given by PLUMBER AND TINNER, all questions addressed and pt stated understanding. Assessment unchanged and no complaints. Patient taken to swing bed by [facility]. Per request of swing bed IV in right wrist left in flushed and locked with alcohol cap. Paperwork sent with transport and report given. [facility] 01-19-2024 Miscellaneous Notes AVS given by PLUMBER AND TINNER, all questions addressed and pt stated understanding. [...] change noted from previous assessment by this ALLY unless otherwise detailed in coordinating flow sheets. [...] reach. DEYSI dressing is no longer flashing, public relations writer removes it per ortho note. Incision is CDI. Ice pack applied. Remains up in recliner. No change noted from previous assessment by this RN unless otherwise detailed in coordinating flow sheets. PRN ultram given per order for c/o left hip and torso pain. States her dinner order was called in by INDEPENDENT LIVING SPECIALIST. Denies additional needs at this time, call [...] insurance approval for the Swing Unit in [place]. Call haddad in hand. Assessment is complete [...] at 30-45 degrees Taken 01/14/2024 1001 by Davina Blanchard Nurse [...] dressing intact and flashing green. Pt c/o 8/ pain to left hip. Tramadol given - [...] in bed. Assessment remains unchanged from previous. Motion Picture Equipment Supervisor redresses avril wraps to BLE. Call light [...] this time. Call light is in reach. Motion Picture Equipment Supervisor reviews charting by Madeleine CANALES, public relations writer agrees with charting. Patient complains of [...] and she startled awake. Patient asked for Milan and was told she was not due [...] Call light is in reach. Ave [address] HARDBOARD COATING MACHINE OPERATOR rounding. He discussed the quality of her bone from in the OR and the slight intraoperative fracture and the strict precautions including global and TDWB resulting ti the need for a SNF on discharge. Cuate extremely addiment I am not going to a fpc. I'm going home . Ave explained after [...] Pt c/o 10/10 pain to left hip. Milan given - see MAR. Pt denies any further needs at this time. Call light within reach. Pt assessment remains unchanged with any exceptions noted in flowsheets. Pt is resting in bed, respirations even and unlabored. Fresh ice pack applied to left hip. DEYSI dressing intact and flashing green. Pt c/o 8/10 pain to left hip, Milan given - see MAR. Pt denies any [...] liquid menu with patient. Patient requested lemon [place] soda. Soda given. Encouraged patient to try and rest. Family at the bedside. Safety education given. Call light within reach. Bed alarm set. Abductor pillow in place. Ice pack to Left hip POST OPERATIVE/PROCEDURE NOTE Cuate Goodman 83 y.o. female [id number] SURGEON Surgeons and Role: * Erik Heredia MD - Primary CASINO ATTENDANT RENE Monique ANESTHESIOLOGIST LAUNDRY BAG PUNCH OPERATOR: JEFFREY Denny SURGICAL STAFF Sock Examiner: Shantell Flood RN; Rebecca Baltaazr, RN; Magdalene Gilbert RN Nurse Practitioner: RENE Monique Crop Roller: Delores German Scrub Person: SALLY Kilgore; Zari [...] Implant Name Type Inv. Item Serial No. Health And Safety Manager Lot No. LRB No. Used Action Hadley Gription Acetabular Shell Sector 52mm OD [employer] [id number] Left 1 Implanted Hadley ALTRX Polyethylene Acetabular Liner Neutral 36mm ID 52mm OD [employer] [id number] Left 1 Implanted Cementralizer Stem Centralizer 10.5mm Cemented [employer] [id number] Left 1 Implanted [place] Femoral Stem 12/14 Taper Cemented Size 5 STD 120mm [employer] [id number] Left 1 Implanted [place] LV 1x40 [id number] Left 1 Implanted [place] LV 1x40 [id number] Left 1 Implanted [place] R 1x40 [id number] Left 1 Implanted Biolox Delta Ceramic Femoral Head +1.5 36mm MERLYN 12/14 Taper [employer] [id number] Left 1 Implanted Suture [place], BioComposite Corkscrew FT,Vented with 1.3mm White/blue and white/black suture tape ARTHREX [id number] Left 1 Implanted Ti Trochanteric Reattachment Device w/Cables/Standard-Ster [employer] [id number] Left 1 Implanted SPECIMENS ID Type Source Tests Collected by Time Destination 1 : Left Femoral head Permanent TISSUE SURGICAL PATHOLOGY REQUEST Erik Heredia MD 01/11/[address] APRN-MARGARITA January 11, 2024 5:48 PM 12/16/23 1580 Information Source Information Source patient Contact Information Special Education Classroom Aide Name Chelsea Menezes RN Living Environment Lives [...] Employment/Financial Employed? Retired Initial Discharge Planning DME (PAN CLEANER) Walker (has FWW) CM met with patient this date to discuss post-surgical discharge plans. Patient states that return home with family assist. Patient has wheeled walker. Patient denies any other questions or needs at this time. CM to continue to follow and assist with discharge plans. documented in this encounter [facility] 01-19-2024 Nurse Note Per patients request called and let contact Sonal daughter know her mother is transferring to swing bed. [facility] 01-19-2024 Nurse Note Called report to Nisha HERNANDEZ at swing bed. Transport set up. [facility] 01-19-2024 Plan of care note [...] Health and Integrity Outcome: Adequate for Discharge [facility] 01-19-2024 Nurse Note No change noted from previous assessment by this PLUMBER AND TINNER unless otherwise detailed in coordinating flow sheets. Patient denies any needs at this time. Call light in reach. [facility] 01-19-2024 Hospital course Narrative Images [...] Preop EKG at baseline. Known diastolic dysfunction. Lead Material Handler did clear her for surgery. She had [...] Patient Name: CUATE GOODMAN Med. Rec. #: [id number] Physician: ERIK HEREDIA Specimen(s) Received Left femoral [...] articular cartilage degeneration. Sectioning reveals unremarkable bone. Extension Work Instructor sections are submitted in one cassette and placed in decalcification solution prior to processing. Billing Fee Code(s) A: 88234, 18288 HEENT: NC/AT, PERRLA, EOMI, fundi benign, external [...] about: Should I take this medication? Follow-up: [place] [id number] Follow up [facility] Upcoming Appointments (up to five)-Some appointments for Medical Center outpatient clinics or diagnostic testing locations are not displayed below Provider Department Dept Phone 02/02/2024 11:30 AM Paige Damon [facility] [phone] documented in this encounter [facility] 01-19-2024 Nurse Note Talisha Damon CNP updated that patient can be discharged to Swing Bed today. [facility] 01-19-[address] Monte updated that auth came through and pt can be discharged to Swing bed today, No new orders at this time. [facility] 01-19-2024 History of Presen t illness [...] on commode with use of grab bars. PAN CLEANER assisted pt with removing breif and pts gown noted to be wet. INDEPENDENT LIVING SPECIALIST called in and assisted pt with gown change. Pt able to void and then pt compelted STS to FWW, Christina x1 and pt able to provide self pericare with this PAN CLEANER providing support with no major LOB noted. Pt then ambulated back into room for approx 10ft and pt states beginning to feel a little dizzy and asking to have bedside chair placed behind pt and then pt transfered to sitting in bedside chair. This PAN CLEANER supporting L LE while reclining chair and [...] Transfer Skill: Sit To Stand, Rehab Eval Hollis (Sit-Stand Transfers) minimum assist (75% patient effort) Physical Assist/Nonphysical Assist: Sit/Stand 1 person assist Weight-Bearing Restrictions: Sit/Stand toe touch weight-bearing Assistive Device For Transfer: Sit/Stand 2 wheeled walker Gait Skills, PT Eval Level of Hollis: Gait minimum assist (75% patients effort) Physical Assist/Nonphysical Assist: Gait 1 person assist Weight-Bearing Restrictions: Gait toe touch weight-bearing Assistive Device For Transfer: Gait 2 wheeled walker Gait Distance (10ft x2) Gait Analysis, PT Eval Gait Pattern Used swing-to gait Stair Negotiation Hollis Level: Stair Negotiation unable to assess Plan [...] this time to adminster medication and this PAN CLEANER assisted pt with placing ice pack on [...] waiting on insurance auth to [facility], this nurse informed that social work has reached out to [facility] to see progress on auth. Will update [...] standing to FWW with Christina x1 and INDEPENDENT LIVING SPECIALIST providing pt with pericare and placing new brief and purewick catheter. Pt then ambulated approx 8ft out of bathroom and states that she would need the chair placed behind her d/t fatigue. Chair placed behind pt and pt transfered to seated position. MAxA x2 for repositoining pt further back into chair. SCD placed on L LE and ice pack applied to L hip.[place] rolled placed on lateral side of L LE to promote proper positoining to follow global hip precautions. Pt states feeling very comfortable in this position. Call light left within reach at end of therapy session. Transfer Skill: Sit To Stand, Rehab Eval Hollis (Sit-Stand Transfers) minimum assist (75% patient effort) Physical Assist/Nonphysical Assist: Sit/Stand 1 person assist Weight-Bearing Restrictions: Sit/Stand toe touch weight-bearing Assistive Device For Transfer: Sit/Stand 2 wheeled walker Gait Skills, PT Eval Level of Hollis: Gait minimum assist (75% patients effort) Physical Assist/Nonphysical Assist: Gait 1 person assist Weight-Bearing Restrictions: Gait toe touch weight-bearing Assistive Device For Transfer: Gait 2 wheeled walker Gait Distance (25ft, 10ft, 8ft) Stair Negotiation Hollis Level: Stair Negotiation unable to assess Plan [...] Transfer Skill: Sit To Stand, Rehab Eval Hollis (Sit-Stand Transfers) moderate assist (50% patient effort) Physical Assist/Nonphysical Assist: Sit/Stand 1 person assist Weight-Bearing Restrictions: Sit/Stand toe touch weight-bearing Assistive Device For Transfer: Sit/Stand 2 wheeled walker Gait Skills, PT Eval Level of Hollis: Gait (Patient refuses to attempt due to [...] time preferred Lower Body Dressing Level of Hollis (declned to complete) Clinical Impression Co-evaluation/co-treatment performed? No simultaneous skilled care performed Patient Instruction/Education comments continued education to ensure safe ADL participation and functional transfers; HEP Therapy Frequency 6 times a week (frequency change due to patient making good progress towards goals and awaiting placement for rehab prior to dc home) Therapist Information License # [id number] 01/15/24 0955 Time In/Out Time In 0955 [...] Transfer Skill: Sit To Stand, Rehab Eval Hollis (Sit-Stand Transfers) minimum assist (75% patient effort) Physical Assist/Nonphysical Assist: Sit/Stand 1 person assist Weight-Bearing Restrictions: Sit/Stand toe touch weight-bearing Assistive Device For Transfer: Sit/Stand 2 wheeled walker Gait Skills, PT Eval Level of Hollis: Gait minimum assist (75% patients effort) Physical [...] on global hip precautions Maintain frequency yes COSMETOLOGIST APPRENTICE spoke with Swing Bed. Insurance authorization still pending. COSMETOLOGIST APPRENTICE met with patient and son, questions answered. COSMETOLOGIST APPRENTICE to follow. 01/14/24 0830 Time In/Out Time [...] Pt with extended time on commode with INDEPENDENT LIVING SPECIALIST providing pt with changing purewick and changing [...] Transfer Skill: Sit To Stand, Rehab Eval Hollis (Sit-Stand Transfers) minimum assist (75% patient effort) Physical Assist/Nonphysical Assist: Sit/Stand 1 person assist Weight-Bearing Restrictions: Sit/Stand toe touch weight-bearing Assistive Device For Transfer: Sit/Stand 2 wheeled walker Gait Skills, PT Eval Level of Hollis: Gait minimum assist (75% patients effort) Physical Assist/Nonphysical Assist: Gait 1 person assist Weight-Bearing Restrictions: Gait toe touch weight-bearing Assistive Device For Transfer: Gait 2 wheeled walker Gait Distance (10ft x2) Gait Analysis, PT Eval Gait Pattern Used swing-to gait Stair Negotiation Hollis Level: Stair Negotiation unable to assess Plan [...] with Christina x2 with pt using leg catering and events manager on L LE with good technique demonstrated [...] Supine to Sit, Rehab Eval Level of Hollis: Supine/Sit minimum assist (75% patients effort) (leg catering and events manager on L LE) Physical Assist/Nonphysical Assist: Supine/Sit 2 person assist Transfer Skill: Sit To Stand, Rehab Eval Hollis (Sit-Stand Transfers) minimum assist (75% patient effort) Physical Assist/Nonphysical Assist: Sit/Stand 2 person assist Weight-Bearing Restrictions: Sit/Stand toe touch weight-bearing Assistive Device For Transfer: Sit/Stand 2 wheeled walker Gait Skills, PT Eval Level of Hollis: Gait minimum assist (75% patients effort) Physical Assist/Nonphysical Assist: Gait 2 person assist Weight-Bearing Restrictions: Gait toe touch weight-bearing Assistive Device For Transfer: Gait 2 wheeled walker Gait Distance 5 feet (chair to bed) Gait Analysis, PT Eval Gait Pattern Used swing-to gait Stair Negotiation Hollis Level: Stair Negotiation unable to assess Plan [...] Sit to Supine, Rehab Eval Level of Hollis: Sit/Supine maximum assist (25% patients effort) Physical Assist/Nonphysical Assist: Sit/Supine 2 person assist Transfer Skill: Sit To Stand, Rehab Eval Hollis (Sit-Stand Transfers) minimum assist (75% patient effort) Physical Assist/Nonphysical Assist: Sit/Stand 2 person assist Weight-Bearing Restrictions: Sit/Stand toe touch weight-bearing Assistive Device For Transfer: Sit/Stand standard walker Gait Skills, PT Eval Level of Hollis: Gait minimum assist (75% patients effort) Physical [...] to progress overall mobility Patient referral to [facility] was faxed, waiting on that swing bed in [place] called and has a bed open, spoke [...] Orders Procedures DIET REGULAR Please provide one [place] Ensure Max over ice at 1430 daily [...] the reasons and processes of the placement, Una Caal and Granddaughter were present and all agreed Cuate did need a short stay at a rehab facility. I contacted swing bed, no beds available , contacted [facility] per patients request and no beds available there. Una caal did recommend [facility], I did reach out to them and [...] Supine to Sit, Rehab Eval Level of Hollis: Supine/Sit moderate assist (50% patients effort) Physical Assist/Nonphysical Assist: Supine/Sit 1 person assist Transfer Skill: Sit To Stand, Rehab Eval Hollis (Sit-Stand Transfers) moderate assist (50% patient effort) Physical Assist/Nonphysical Assist: Sit/Stand 2 person assist Weight-Bearing Restrictions: Sit/Stand toe touch weight-bearing Assistive Device For Transfer: Sit/Stand standard walker Gait Skills, PT Eval Level of Hollis: Gait minimum assist (75% patients effort) Physical [...] educated on hip precautions, use of leg catering and events manager and weight bearing status. Pt educated to [...] Muscle Testing (MMT) Dominant Hand right Hand Director Public, Right moderate Hand Director Public, Left moderate Bed Mobility Skill: Supine to Sit, Rehab Eval Level of Hollis: Supine/Sit minimum assist (75% patients effort) Physical Assist/Nonphysical Assist: Supine/Sit 1 person assist Transfer Skill: Sit to Stand, Rehab Eval Level of Hollis: Sit/Stand moderate assist (50% patients effort) Physical Assist/Nonphysical Assist: Sit/Stand 2 person assist Weight-Bearing Restrictions: Sit/Stand toe touch weight-bearing Assistive Device for Transfer: Sit/Stand standard walker Transfer Skill: Toilet Transfer, Rehab Eval Assistive Device standard walker BADL Evaluation Additional Documentation Yes Upper Body Dressing Level of Hollis minimum assist (75% patients effort) Lower Body Dressing Level of Hollis (refused to practice) Toileting Level of Hollis (refused, reports wanting to use purwick only) Grooming Hollis Level (Grooming) grooming skills;wash face, hands;set up [...] sit min A x1 person, with leg catering and events manager and head of bead elevated. Pt able [...] and functional transfers Therapist Information License # [id number] Pt will complete LB dressing with min [...] WITH DR HEREDIA. documented in this encounter [facility] 01-19-2024 Nurse Note Patient resting in bed. Assessment remains unchanged from previous. Call light is within reach. [facility] 01-19-2024 Nurse Note Pt resting in the chair. Assessment remains unchanged from previous. Pt's SPO2 is 84% on room air, so patient is put on 2L nasal cannula and SPO2 is now 90%. Call light is within reach. [facility] 01-19-2024 Nurse Note DEYSI dressing is no longer flashing, public relations writer removes it per ortho note. Incision is CDI. Ice pack applied. [facility] 01-18-2024 Nurse Note Remains up in recliner. No change noted from previous assessment by this RN unless otherwise detailed in coordinating flow sheets. PRN ultram given per order for c/o left hip and torso pain. States her dinner order was called in by INDEPENDENT LIVING SPECIALIST. Denies additional needs at this time, call light in reach, recliner wheels locked. [facility] 01-18-2024 Plan of care note Problem: Adult Inpatient Plan of Care Goal: Plan of Care Review Outcome: Progressing Goal: Patient-Specific Goal (Individualized) Outcome: Progressing Goal: Absence of Hospital-Acquired Illness or Injury Outcome: Progressing Goal: Optimal Comfort and Wellbeing Outcome: Progressing Goal: Readiness for Transition of Care Outcome: Progressing Problem: Skin Injury Risk Increased Goal: Skin Health and Integrity Outcome: Progressing [facility] 01-18-2024 Nurse Note Remains up in recliner. No change noted from previous assessment by this RN unless otherwise detailed in coordinating flow sheets. Denies additional needs at this time, call light in reach, recliner wheels locked. [facility] 01-18-2024 Consult note Formatting of th is note is different from the original. Medical consultation Patient is a week postop total hip arthroplasty. No new complaints. Pain is adequately controlled. Therapy is progressing. Awaiting approval from insurance for swing bed. Known right bundle branch block. Preop EKG at baseline. Known diastolic dysfunction. Lead Material Handler did clear her for surgery. She had [...] Surgical Final Report Patient Name: CUATE GOODMAN [facility]. Rec. #: [id number] Physician: ERIK HEREDIA Specimen(s) Received Left femoral [...] articular cartilage degeneration. Sectioning reveals unremarkable bone. Extension Work Instructor sections are submitted in one cassette and placed in decalcification solution prior to processing. Billing Fee Code(s) A: 72017, 86826 HEENT: NC/AT, PERRLA, EOMI, fundi benign, external [...] minutes total time. Luis Monte MD 01/18/2024 [facility] 01-18-2024 Consult note Formatting of th is note is different from the original. Medical consultation Patient is a week postop total hip arthroplasty. No new complaints. Pain is adequately controlled. Therapy is progressing. Awaiting approval from insurance for swing bed. Known right bundle branch block. Preop EKG at baseline. Known diastolic dysfunction. Lead Material Handler did clear her for surgery. She had [...] Surgical Final Report Patient Name: CUATE GOODMAN [facility]. Rec. #: [id number] Physician: ERIK HEREDIA Specimen(s) Received Left femoral [...] articular cartilage degeneration. Sectioning reveals unremarkable bone. Extension Work Instructor sections are submitted in one cassette and placed in decalcification solution prior to processing. Billing Fee Code(s) A: 98888, 00121 HEENT: NC/AT, PERRLA, EOMI, fundi benign, external [...] Preop EKG at baseline. Known diastolic dysfunction. Lead Material Handler did clear her for surgery. She had [...] Surgical Final Report Patient Name: CUATE GOODMAN [facility]. Rec. #: [id number] Physician: ERIK HEREDIA Specimen(s) Received Left femoral [...] articular cartilage degeneration. Sectioning reveals unremarkable bone. Extension Work Instructor sections are submitted in one cassette and placed in decalcification solution prior to processing. Billing Fee Code(s) A: 98936, 40635 HEENT: NC/AT, PERRLA, EOMI, fundi benign, external [...] Preop EKG at baseline. Known diastolic dysfunction. Lead Material Handler did clear her for surgery. She had [...] Preop EKG at baseline. Known diastolic dysfunction. Lead Material Handler did clear her for surgery. She had [...] optimized by her primary care provider and aws software development engineer. Preop testing notable for an INR of [...] Preop EKG at baseline. Known diastolic dysfunction. Lead Material Handler did clear her for surgery. She had [...] Partner Violence: Unknown (09/09/2023) Received from [facility] [place] Safety & Environment Fear [...] Monte MD 01/11/2024 documented in this encounter [facility] 01-18-2024 Nurse Note Laying in recliner upon this RN arrival to patient room, resting quietly with eyes closed, respirations even and unlabored. Arouses easily to voice, appropriate to conversation. Shift assessment initiated, detailed in coordinating flow sheets. Denies additional needs at this time, call light in reach, recliner wheels locked. [facility] 01-18-2024 Plan of care note Problem: Adult Inpatient Plan of Care Goal: Plan of Care Review Outcome: Progressing Goal: Patient-Specific Goal (Individualized) Outcome: Progressing Goal: Absence of Hospital-Acquired Illness or Injury Outcome: Progressing Goal: Optimal Comfort and Wellbeing Outcome: Progressing Goal: Readiness for Transition of Care Outcome: Progressing Problem: Skin Injury Risk Increased Goal: Skin Health and Integrity Outcome: Progressing [facility] 01-18-2024 Nurse Note Patient's assessment remains unchanged from previous assessment this shift, any exceptions noted in flowsheets. Patient resting comfortably in chair, declines any needs at this time. Call light within reach,chair alarm active [facility] 01-17-2024 Consult note Formatting of th is [...] Preop EKG at baseline. Known diastolic dysfunction. Lead Material Handler did clear her for surgery. She had [...] Surgical Final Report Patient Name: CUATE GOODMAN [facility]. Rec. #: [id number] Physician: ERIK HEREDIA Specimen(s) Received Left femoral [...] articular cartilage degeneration. Sectioning reveals unremarkable bone. Extension Work Instructor sections are submitted in one cassette and placed in decalcification solution prior to processing. Billing Fee Code(s) A: 19466, 28528 HEENT: NC/AT, PERRLA, EOMI, fundi benign, external [...] minutes total time. Luis Monte MD 01/17/2024 [facility] 01-17-2024 Nurse Note The top of the right foot is no longer red. Cuate has brisk cap refill on both lower extremities. An avril wrap was applied to Cuate right lower extremity from the toes to her knee. She is currently denying pain. She is watching TV and is pleasant. She is still awaiting insurance approval for the Swing Unit in [place]. Call haddad in hand. [facility] 01-17-2024 Nurse Note Assessment is complete and remains unchanged from previous at this time with any exceptions noted in the flowsheet. Patient denies further needs and is left with call light and personals in reach. [facility] Nurse Note Assessment is complete and remains unchanged from previous at this time with any exceptions noted in the flowsheet. Patient denies further needs and is left with call light and personals in reach. [facility] 01-17-2024 Nurse Note Resting in chair. Assessment unchanged from earlier. Call light in reach. [facility] 01-16-2024 Nurse Note Patient remains resting in recliner chair beside of bed. Voices no needs. Was medicated earlier for pain. Assessment unchanged from previous. Ice maintained to left hip. Call light in reach. [facility] 01-16-2024 Plan of care note Problem: Skin [...] rest periods promoted Nutrition Interventions: diet adjusted [facility] 01-16-2024 Nurse Note Afternoon assessment completed. No changes noted. Patient resting with no complaints. Call light and phone within reach. [facility] 01-16-2024 Nurse Note No change noted from previous assessment by this RN unless otherwise detailed in coordinating flow sheets. Patient denies any needs at this time. [facility] 01-16-2024 Nurse Note Assessment unchanged from prior unless otherwise charted. Patient resting in bed, call light within reach, Up In Chair, Patient denies any current needs at this time. [facility] 01-15-2024 Plan of care note Problem: Skin Injury Risk Increased Goal: Skin Health and Integrity Outcome: Progressing Intervention: Optimize Skin Protection Flowsheets Taken 01/15/2024 1616 by Elysia Green RN Activity Management: activity adjusted per tolerance Taken 01/15/2024 1600 by Olesya Lopez LPN Head of Bed (HOB) Positioning: HOB at 30-45 degrees Taken 01/14/2024 1001 by Davina Blanchard Nurse Pressure Reduction Techniques: frequent weight shift encouraged Pressure Reduction Devices: pressure-redistributing mattress utilized Skin Protection: incontinence pads utilized Intervention: Promote and Optimize Oral Intake Flowsheets (Taken 01/14/2024 1630) Oral Nutrition Promotion: rest periods promoted Nutrition Interventions: diet adjusted [facility] 01-15-2024 Nurse Note Afternoon assessment completed. No changes noted. Patient resting in the chair with no complaints. Call light and phone within reach. [facility] 01-15-2024 Nurse Note No change noted from previous assessment by this RN unless otherwise detailed in coordinating flow sheets. Patient denies any needs at this time. [facility] 01-15-2024 Nurse Note Pt assessment remains unchanged with any exceptions noted in flowsheets. Pt is resting in the recliner chair, respirations even and unlabored. Fresh ice pack applied to left hip. DEYSI dressing intact and flashing green. Pt c/o 7/10 pain to left hip with spasms. Tramadol given - see MAR. Pt denies any further needs at this time. Call light within reach. [facility] 01-15-2024 Nurse Note Pt assessment remains unchanged with any exceptions noted in flowsheets. Pt appears to be sleeping, respirations even and unlabored. Call light within reach. [facility] 01-14-2024 Nurse Note Pt assessment complete and documented in flowsheets. POC reviewed with pt. Pt is alert, respirations even and unlabored. No acute distress observed. Fresh ice pack applied to left hip. DEYSI dressing intact and flashing green. Pt c/o 8/10 pain to left hip. Tramadol given - see MAR. Pt denies any further needs at this time. Call light within reach. [facility] 01-14-2024 Plan of care note Problem: Skin [...] rest periods promoted Nutrition Interventions: diet adjusted [facility] 01-14-2024 Nurse Note Afternoon assessment completed. No changes noted. Patient resting with no complaints. Call light and phone within reach. [facility] 01-14-2024 Nurse Note No change noted from previous assessment by this RN unless otherwise detailed in coordinating flow sheets. Patient denies any needs at this time. [facility] 01-14-2024 Nurse Note Pt resting in chair. Assessment remains unchanged from previous. Call light is within reach, SCDs are on. [facility] 01-14-2024 Nurse Note Pt resting in bed. Assessment remains unchanged from previous. Motion Picture Equipment Supervisor redresses avril wraps to BLE. Call light is within reach and bed alarm is on. [facility] 01-13-2024 Nurse Note Updates given to daughter Sonal. She denies any questions or concerns. [facility] 01-13-2024 Consult note Formatting of th is [...] Preop EKG at baseline. Known diastolic dysfunction. Lead Material Handler did clear her for surgery. She had [...] minutes total time. Luis Monte MD 01/13/2024 [facility] 01-13-2024 Nurse Note No changes noted from previous assessment by this RN except what is detailed in coordinating flow sheets. Patient denies needs at this time. Call light is in reach. [facility] 01-13-2024 Nurse Note Patient denies any pain at this time. Patient denies need for pain medication and states she will call whenever she needs them. Med ULLOA at bedside. No changes noted from previous assessment by this RN except what is detailed in coordinating flow sheets. Patient denies needs at this time. Call light is in reach. [facility] 01-13-2024 Nurse Note Voicemail left [...] this time. Call light is in reach. [facility] 01-13-2024 Nurse Note Motion Picture Equipment Supervisor reviews charting by Madeleine CANALES, public relations writer agrees with charting. [facility] 01-13-2024 Nurse Note Patient complains of chest pain she describes it as pressure that is moving left. She states it feels like how it fells when I get indigestion . Dr. Monte notified. New orders received. [facility] 01-13-2024 Nurse Note Reassessment complete at this time and remains unchanged from previous. Patient states I slept really well last night. I think the Tramadol helped a lot. Patient rates pain 5/10 and 8/10 with spasms, movement. Patient DEYSI flashing green. Patient denies further needs and is left with call light and personals within reach. [facility] 01-13-2024 Nurse Note Reassessment complete at this time. Patient states Pain is much better. Patient denies any further needs and is left with call light and personals within reach. [facility] 01-12-2024 Consult note Formatting of th is [...] Preop EKG at baseline. Known diastolic dysfunction. Lead Material Handler did clear her for surgery. She had [...] minutes total time. Luis Monte MD 01/12/2024 [facility] 01-12-2024 Nurse Note Assessment complete at this time with any exceptions noted in the flowsheets. Patient was snoring upon this nurse entering the room. Patient did not awaken to verbal stimulation. This nurse touched patients arm in an attempt to awaken her. Patient was still snoring. This nurse rubbed patient and she startled awake. Patient asked for Milan and was told she was not due for two more hours. Patient agreeable to wait. Patient denies further needs and is left with call light and personals within reach. [facility] 01-12-2024 Nurse Note Patient son's Mat at bedside at this time. This RN questioned if the patient would like PRN pain medication, patient states I'll call you when I want them . Denies needs at this time, call light within reach. [facility] 01-12-2024 Nurse Note No changes noted from previous assessment by this RN except what is detailed in coordinating flow sheets. Patient denies needs at this time. Call light is in reach. [facility] 01-12-2024 Nurse Note Bilaterally AVRIL wrap applied to lower legs with MARY Mcgee at this time per Randell AVILA. [facility] 01-12-2024 Hospital Discharg e instructions [...] PM EDT Dr. Heredia's office number is [phone], option #2 for the nurse. If after hours, please contact the [facility] number, and ask for Dr. Heredia's on-call provider. Contact Office ([phone]) if: > Any falls or injuries > [...] be sent through Care Everywhere.acetaminophen and hydrocodone ([place])acetaminophen (oral) ([place]adian)docusate (oral/rectal) ([place])apixaban ([place]adian)Blood Thinners: How to Prevent Bleeding ([facility]) ([place])documented in this encounter [facility] 01-12-2024 Nurse Note No changes noted from previous assessment by this RN except what is detailed in coordinating flow sheets. Patient denies needs at this time. Call light is in reach. [facility] 01-12-[address] HARDBOARD COATING MACHINE OPERATOR rounding. He discussed the quality of her bone from in the OR and the slight intraoperative fracture and the strict precautions including global and TDWB resulting ti the need for a SNF on discharge. Cuate extremely addiment I am not going to a fpc. I'm going home . Ave explained after PT/OT evaluation today we might to had an additional conversation. Cuate looks to be upset over this visit at this time. The plan for nursing will be to now allow PT/OT to evaluate and clear explain options on discharge. [facility] 01-12-2024 Nurse Note Pt assessment remains unchanged with any exceptions noted in flowsheets. Pt is resting in bed, respirations even and unlabored. Fresh ice pack applied to left hip. DEYSI dressing intact and flashing green. Pt c/o 10/10 pain to left hip. Milan given - see MAR. Pt denies any further needs at this time. Call light within reach. [facility] 01-11-2024 Nurse Note Pt assessment remains unchanged with any exceptions noted in flowsheets. Pt is resting in bed, respirations even and unlabored. Fresh ice pack applied to left hip. DEYSI dressing intact and flashing green. Pt c/o 8/10 pain to left hip, Milan given - see MAR. Pt denies any further needs at this time. Call light within reach. [facility] 01-11-2024 Nurse Note Pt assessment complete and [...] at this time. Call light within reach. [facility] 01-11-2024 Progress note Formatting of t his note might be different from the original. Pt nauseated at this time IS not done RN aware and will give medication for nausea and then instruct pt. [facility] 01-11-2024 Consult note Associated Order (s): IP CONSULT TO GENERAL MEDICINE Medical consultation Patient is an 83-year-old female who presents for total hip arthroplasty. She was at her baseline state of health prior to surgery and was medically optimized by her primary care provider and aws software development engineer. Preop testing notable for an INR of [...] Preop EKG at baseline. Known diastolic dysfunction. Lead Material Handler did clear her for surgery. She had [...] Partner Violence: Unknown (09/09/2023) Received from [facility] Safety & Environment Fear of Current [...] minutes total time. Luis Monte MD 01/11/2024 [facility] 01-11-2024 Nurse Note Patient returned to [...] liquid menu with patient. Patient requested lemon [place] soda. Soda given. Encouraged patient to try and rest. Family at the bedside. Safety education given. Call light within reach. Bed alarm set. [facility] 01-11-2024 Nurse Note Abductor pillow in place. Ice pack to Left hip [facility] 01-11-2024 Nurse Note Patient transported to PACU with Chava PATHAK. Reports given to Nely HERNANDEZ at 1759H. OR 4 temp 67.2F, humidity 40% documented in this encounter [facility] 01-11-2024 Nurse Surgical operation note Patient transported to PACU with Chava PATHAK. Reports given to Nely HERNANDEZ at 1759H. [facility] 01-11-2024 Surgery Postoperative evaluation and management note POST OPERATIVE/PROCEDURE NOTE Cuate Goodman 83 y.o. female [id number] SURGEON Surgeons and Role: * Erik Heredia MD - Primary CASINO ATTENDANT RENE Monique ANESTHESIOLOGIST LAUNDRY BAG PUNCH OPERATOR: JEFFREY Denny SURGICAL STAFF Sock Examiner: Shantell Flood, RN; Rebecca Baltazar, RN; Magdalene Gilbert, RN Nurse Practitioner: RENE Monique Crop Roller: Delores German Scrub Person: SALLY Kilgore; Zari [...] Implant Name Type Inv. Item Serial No. Health And Safety Manager Lot No. LRB No. Used Action Hadley Gription Acetabular Shell Sector 52mm OD [employer] [id number] Left 1 Implanted Hadley ALTRX Polyethylene Acetabular Liner Neutral 36mm ID 52mm OD [employer] [id number] Left 1 Implanted Cementralizer Stem Centralizer 10.5mm Cemented [employer] [id number] Left 1 Implanted [place] Femoral Stem 12/14 Taper Cemented Size 5 STD 120mm [employer] [id number] Left 1 Implanted [place] LV 1x40 [id number] Left 1 Implanted [place] LV 1x40 [id number] Left 1 Implanted [place] R 1x40 [id number] Left 1 Implanted Biolox Delta Ceramic Femoral Head +1.5 36mm MERLYN 12/14 Taper [employer] [id number] Left 1 Implanted Suture [place], BioComposite Corkscrew FT,Vented with 1.3mm White/blue and white/black suture tape ARTHREX [id number] Left 1 Implanted Ti Trochanteric Reattachment Device w/Cables/Standard-Ster [employer] [id number] Left 1 Implanted SPECIMENS ID Type Source Tests Collected by Time Destination 1 : Left Femoral head Permanent TISSUE SURGICAL PATHOLOGY REQUEST Erik Heredia MD 01/11/[address], YANELY-HARDBOARD COATING MACHINE OPERATOR January 11, 2024 5:[address] [facility] 01-11-2024 Nurse Surgical operation note OR 4 temp 67.2F, humidity 40% T [facility] 01-11-2024 Note Shantell Dasilva RN 01/10 [...] and locked. [X] Tray table within reach. [facility] 01-11-2024 Procedure note Associated Ord er(s): [...] and locked. [X] Tray table within reach. [facility] 01-11-2024 Procedure note Associated Ord er(s): [...] table within reach. documented in this encounter [facility] 12-22-2023 Note [facility] Note [...] bundle branch block. Echocardiographic study 11/19/2022 at [facility] Normal left ventricle systolic function, ejection fraction 50 to 55%, abnormal septal motion, diastolic function is indeterminate Right ventricle appears enlarged with preserved systolic function Mild mitral regurgitation Mild tricuspid rotation Moderately elevated right-sided pressure Mildly dilated ascending aorta 4.21 cm Echo 05/17/2020 at [facility] Normal left ventricle systolic function, ejection fraction above 55% Grade 2 diastolic dysfunction Mild mitral rotation Lexiscan nuclear stress test 05/15/2020 at [facility] No acute or reversible ischemia Small anterior wall fixed defect versus breast attenuation artifact Normal wall motion and ejection fraction 65%. Thank you Chest CTA 11/09/2022 at [facility] Small pulmonary embolus w (more content not included)... [facility] 12-16-2023 Nurse Note 12/16/23 5196 Information Source Information Source patient Contact Information Special Education Classroom Aide Name Chelsea Menezes RN Living Environment Lives [...] Employment/Financial Employed? Retired Initial Discharge Planning DME (PAN CLEANER) Walker (has FWW) CM met with patient this date to discuss post-surgical discharge plans. Patient states that return home with family assist. Patient has wheeled walker. Patient denies any other questions or needs at this time. CM to continue to follow and assist with discharge plans. [facility] 12-01-2023 History of Presen t [...] 12/01/2023 2:14 PM Patient: Cuate Goodman MR#: [id number] : 1940 Age: 83 y.o. Referring Physician: Truman Boo Jr., DO Insurance: Payor: MEDICARE AET HMO OR PPO [...] a left total hip arthroplasty for optimal group home management. PHYSICAL EXAM: This is an alert, [...] joint space, subchondral sclerosis, osteophyte formation, and [id number] contact. IMPRESSION: 1.) Severe symptomatic end-stage arthritis, [...] of limb, and ultimately loss of life. exterminator helper expectations, risks and general implant survivorship were also discussed. Despite these risks, the patient would like to proceed with surgical planning. Today, we will initiate the pre-surgical process including nasal MRSA screening, scheduling an appointment for [facility] and the potential surgical date, and reviewing [...] Unknown Penicillins Hives documented in this encounter [facility] System Evaluation + Plan note No data available for this section [facility] Evaluation note Diagnosis Pain of left hip- Primary Osteoarthritis of left hip, unspecified osteoarthritis type documented in this encounter [facility] Access SystemEvaluation note* Diagnosis S/P total hip arthroplasty- Primary Hip joint replacement by other means Preop testing Preoperative examination, unspecified Pain in other specified joint Osteoarthritis of left hip, unspecified osteoarthritis type Acute postoperative pain of left hip Status post total replacement of left hip [facility] Diagnosis S/P total left hip arthroplasty- Primary 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 Diagnosis S/P total left hip arthroplasty- Primary [facility] Diagnosis Primary osteoarthritis of left hip- Primary Primary localized osteoarthrosis, pelvic region and thigh documented in this encounter [facility] SystemEvaluation noteNo assessment information [facility]Mer[facility] Work Phone: Progress note No data available for this section [facility] Summary Purpose Family History No Family History [...] Referral Specialty Diagnoses / Procedures Referred By Contac t Referred To Contact Diagnoses Pain of left hip Procedures XR HIP WITH PELVIS LEFT Erik Heredia MD [address] [place] [id number] Referral ID Status Reason Start Date Expiration Date V isits Requested Visits Authorized [id number] New Request 11/19/2023 12/13/2024 1 1 Specialty Diagnoses / Procedures Referred By Contac t Referred To Contact Procedures ECG Luis Monte MD [address] [place] [phone] Referral ID Status Reason Start Date Expiration Date V isits Requested Visits Authorized [id number] New Request 01/13/2024 02/06/2025 1 1 Specialty Diagnoses / Procedures Referred By Contac t Referred To Contact [facility] STURGIS [facility] LOC [address] [place] [phone] Referral ID Status Reason Start Date Expiration Date Visits Re quested Visits Authorized Specialty Diagnoses / Procedures Referred By Contac t Referred To Contact Diagnoses S/P total left hip arthroplasty Procedures XR HIP WITH PELVIS LEFT Paige Damon [address] [place] [phone] Referral ID Status Reason Start Date Expiration Date V isits Requested Visits Authorized [id number] New Request 01/26/2024 02/19/2025 1 1 Referral ID Status Reason Start Date Expiration Date V isits Requested Visits Authorized [id number] New Request 02/17/2024 03/13/2025 1 1 Additional Source Comments INFORMATION SOURCE (unrecogn ized section and content) DATE CREATED AUTHOR 11/20/2022 [facility] DATE CREATED AUTHOR AUTHOR'S ORGANIZ ATION 09/19/2023 [facility] DATE CREATED AUTHOR AUTHOR'S ORGANIZ ATION 11/07/2023 [facility] EPIC DATE CREATED AUTHOR AUTHOR'S ORGANIZ ATION 01/10/2024 [facility] DATE CREATED AUTHOR AUTHOR'S ORGANIZ ATION 02/14/2024 [facility] DATE CREATED AUTHOR AUTHOR'S ORGANIZ ATION 03/20/2024 [facility] DATE CREATED AUTHOR AUTHOR'S ORGANIZ ATION 07/31/2024 [facility] DATE CREATED AUTHOR AUTHOR'S ORGANIZ ATION 08/01/2024 [facility] Reason for Visit (unrecogniz ed section and content) Specialty Diagnoses / Procedures Referred By Contac t Referred To Contact Diagnoses Pain of left hip Procedures XR HIP WITH PELVIS LEFT Erik Heredia MD [address] [place] [address] Referral ID Status Reason Start Date Expiration Date V isits Requested Visits Authorized [id number] New Request 11/19/2023 12/13/2024 1 1 Reason Comments Pain Specialty Diagnoses / Procedures Referred By Contac t Referred To Contact Diagnoses Osteoarthritis of left hip, unspecified osteoarthritis type Osteoarthritis of left hip, unspecified osteoarthritis type [M16.12] Procedures VA ARTHRP ACETBLR/PROX FEM PROSTC AGRFT/ALGRFT ARTHROPLASTY HIP TOTAL LATERAL APPROACH Erik Heredia MD [address] [place] [address] Referral ID Status Reason Start Date Expiration Date Visits Re quested Visits Authorized [id number] 12/06/2023 1 1 Reason Comments Surgical Follow-up 01/11/24 LTHA-AL Specialty Diagnoses / Procedures Referred By Contac t Referred To Contact Diagnoses S/P total left hip arthroplasty Procedures XR HIP WITH PELVIS LEFT Paige Damon [address] [place] [address] Referral ID Status Reason Start Date Expiration Date V isits Requested Visits Authorized [id number] New Request 01/26/2024 02/19/2025 1 1 Referral ID Status Reason Start Date Expiration Date V isits Requested Visits Authorized [id number] New Request 02/17/2024 03/13/2025 1 1 Reason Comments Post Op Visit 01/11/24 Weight beari ng check left total hip arthroplasty Post Op Visit Specialty Diagnoses / Procedures Referred By Abiodun santana Referred To Contact Diagnoses Hx of total hip arthroplasty, left Procedures XR HIP WITH PELVIS LEFT Ave Mackey, PAPER TUBE GRADER-HARDBOARD COATING MACHINE OPERATOR [address] [place] [address] Referral ID Status Reason Start Date Expiration Date V isits Requested Visits Authorized [id number] New Request 03/07/2024 04/01/2025 1 1 Reason Comments Pain Care Teams (unrecognized sec tion and content) Motor Teacher Relationship Specialty Start Date End Date Truman Boo Jr., DO [address] [address] PCP - General Orthopaedic Surgery 11/04/23 Motor Teacher Relationship Specialty Start Date End Date Truman Boo Jr., DO [address] [address] PCP - General Orthopaedic Surgery 11/04/23 12/02/23 Motor Teacher Relationship Specialty Start Date End Date Tian Kuhn DO [address] [place] [address] PCP - General Family Medicine 12/03/23 Motor Teacher Relationship Specialty Start Date End Date Tian Kuhn DO [address] [place] [address] PCP - General Family Medicine 12/03/23 Motor Teacher Relationship Specialty Start Date End Date Tian Kuhn DO [address] [place] [address] PCP - General Family Medicine 12/03/23 Motor Teacher Relationship Specialty Start Date End Date Tian Kuhn DO [address] [place] [address] PCP - General Family Medicine 12/03/23 Motor Teacher Relationship Specialty Start Date End Date KuhnTian [address] [place] [place] [address] PCP - General Family Medicine 12/03/23 Motor Teacher Relationship Specialty Start Date End Date Tian Kuhn DO [address] [place] [address] PCP - General Family Medicine 12/03/23 Motor Teacher Relationship Specialty Start Date End Date Tian Kuhn DO [address] [place] [address] PCP - General Family Medicine 12/03/23 Motor Teacher Relationship Specialty Start Date End Date Tian Kuhn DO [address] [place] [address] PCP - General Family Medicine 12/03/23 Team Status: Active Member Role Status Dates Samuel Rivas DO Attending Provider Active Sta rt: May 01, 2024 End: May 02, 2024 Jayme Shafer MD Referring Provider Active Sta rt: May 01, 2024 End: May 02, 2024 Team Status: Inactive Member Role Status Dates Tony Casas DO Attending Provider Active S tart: July 18, 2024 End: July 18, 2024 Motor Teacher Relationship Specialty Start Date End Date Tian Kuhn MD [address] [place], [place] [address] Referring Physician Orthopaedic Surgery 11/03/23 Scheduled Active and Recently Administ ered Medications [...] anticoagulants (e.g. enoxaparin, heparin)., Indications: Venous Thromboembolism 223 (Given - Provider: Fernanda Cantor RN) 0920 (Given - Provider: Amairani Lim RN)2237 (Given - Provider: Ольга Morales RN) [...] RN) 0920 (Given - Provider: Amairani Lim RN)161 (Given - Provider: Amairani Lim RN) 09 (Given - Provider: Irene Alejandro LPN) Docusate (COLACE) capsule 100 mg 100 mg, Oral, 2 TIMES DAILY, First dose on Wed01/11/24 at 1845, Until Discontinued, Post-op/Post-Proc 0815 (Given - Provider: Merry Goodwin RN)1640 (Given - Provider: Merry Goodwin RN) 0919 (Given - Provider: Amairani Lim RN)161 (Given - Provider: Amairani Lim RN) 09 (Given - Provider: Irene Alejandro LPN) Loratadine [...] Intravenous, at 75 mL/hr, CONTINUOUS, Starting on e 01/11/24 at 1845, Until Wed01/19/24 at 1423, Convert [...] Oral, EVERY 4 HOURS NEEDED, Starting on e 01/11/24 at 1831, [...] Angelita Pepe RN)1109 (Given - Provider: Merry Goodwin RN)1758 (Given [...] RN)1614 (Given - Provider: Amairani Lim RN) Zolpidem (AMBIEN) tablet 5 mg 5 [...] cream)1620 (Given - Provider: Ramona Mckeon RN) 08 [...] LPN) 0842 (Given - Provider: Ramona Mckeon RN)2116 (Not [...] LPN) 0841 (Given - Provider: Ramona Mckeon, RN) 0805 (Given - Provider: Cherri Masterson [...] 2226 (Given - Provider: Kimber Sanchez LPN) 2359 (Given - Provider: Patricia Malin LPN) Scheduled [...] LPN) 0842 (Given - Provider: Ramona Mckeon, MARY)2114 (Given - Provider: Patricia Malin LPN) 0805 [...] - Comment: awaiting wound consult to okay cream)1621 (Given - Provider: Ramona Mckeon, MARY) 0809 (Not Given - Provider: Cherri Masterson LPN - Reason: Patient/family refused) Cyclobenzaprine (FLEXERIL) tablet 5 mg 5 mg, Oral, EVERY 12 HOURS, First dose (after last modification) on 01/22/24 at 2100, Until Discontinued 0838 (Given - Provider: Anisa Newell LPN)2029 (Given - Provider: Kimber Sanchez LPN) 0842 (Given - Provider: Ramona Mckeon, MARY)2111 (Given - Provider: Patricia Malin LPN) 08 [...] 08 (Given - Provider: Cherri Masterson LPN) multivitamin tablet 1 tablet 1 tablet, Oral, DAILY, First dose on Maggie 01/20/24 at 0900, Until Discontinued 0838 (Given - Provider: Anisa Newell LPN) 0842 (Given - Provider: Ramona Mckeon, RN) 0806 (Given - Provider: Cherri Masterson [...] LPN) 0611 (Given - Provider: Inge Medeiros, MARY) 0522 (Given - Provider: Patricia Malin LPN) [...] LPN) 0615 (Given - Provider: Inge Medeiros, RN)2004 (Given - Provider: Patricia Malin LPN) 1252 (Given - Provider: Carmine Alonso RN) hydroCODone-acetaminophen (NORCO) 5-325 MG per tablet 2 tablet 2 tablet, Oral, EVERY 4 HOURS NEEDED, Starting on Wed01/19/24 at 1752, Until Wed02/11/24 at 1545, Severe Pain, May have prior to therapy 222 (Given - Provider: Kimber Sanchez LPN) 2357 [...] 2358 (Given - Provider: Patricia Malin LPN) Goals [...] BE BASED ON THE PRIMARY CLINICAL RECORDS. [employer] provides no warranty or guarantee of the accuracy or completeness of information in this document.
[2024-08-10 08:30] VITALS: BP 110/71; PULSE 81; TEMP 36.3; O2SAT 93
[2024-08-10] MEDS: OXYBUTYNIN CHLORIDE 5 MG TAB XL 10 MG PO (08:50)
[2024-08-10] MEDS: B COMPLEX/FOLIC ACID SOFTGEL CAPSULE 1 CAP PO (08:50)
[2024-08-10] MEDS: MULTIVITAMIN TABLET 1 TAB PO (08:50)
[2024-08-10] MEDS: CHOLECALCIFEROL (VITAMIN D3) 125 MCG/5,000 UNIT TABLET PO (08:50)
[2024-08-10] MEDS: MAGNESIUM OXIDE 400 MG TABLET PO (08:50)
[2024-08-10] MEDS: ALLOPURINOL 100 MG TABLET PO (08:50)
--- NOTE | 2024-08-10 10:30 | SWNOTE1 ---
SW spoke to case management and after conversation with pt she did not need [facility] coming in anymore. She stated she did not qualify for therapy and it was just a nurse coming in. Her daughter helps with bathing and [facility] did not have an aide. Therefor, she does not feel she is benefiting from just the nurse and does not need HH at this time.
--- NOTE | 2024-08-10 10:35 | CM.NOTE ---
Rounds made with Dr. Yee, pt will discharge to home today. Discussed with pt about [facility] and if she was still active with them, pt states she had discontinued their services and did not need them anymore. Pt denies needs at discharge. Pt states her granddaughter helps her with bathing and meal prep.
--- NOTE | 2024-08-10 11:09 | PM.DS1 ---
DS: Providers Provider Date of admission: 08/09/24 15:25 Primary care physician: JASON MORALES DO Admitting clinician: Shaikh Joselito Attending physician on admission: Shaikh Joselito Consults: 08/09/24 13:34 Consult to Hospitalist Routine Consulting Provider: Hospitalist Reason for consultation: observation post op laser lithotripsy Has provider been notified: No Attending physician on discharge: Shaikh Joselito Discharging clinician: Shaikh Joselito Anticipated date of discharge: 08/10/24 DS: Diagnosis Discharge Diagnosis (1) Hydronephrosis of left kidney: (2) Ureteral stone with hydronephrosis: (3) Left flank pain: (4) History of pulmonary embolism: DS: Summary Hospital Course Hospital Course: 83 y o female was scheduled for outpatient cystoscopy, lithotripsy, stone extraction and ureteral stent placement for left sided hydronephrosis. Patient was admitted for obs post operatively for pain control and monitoring. No overnight events. Pain is controlled, is now intermittent. No acute finding on blood work. Patient stable for discharge. Will need f/u with Urology. Status at Discharge Functional status at discharge: independent ambulation Overall status at discharge: patient is back to baseline Time Spent with Patient Time attestation: Total time spent providing and/or coordinating discharge services: Time spent: greater than 30 minutes Exam Constitutional Vital Signs, click to edit/add: Last Vital Signs Temp 97.4 F L 08/10/24 08:30 Pulse 81 08/10/24 08:30 Resp 16 08/10/24 08:30 BP 110/71 08/10/24 08:30 Pulse Ox 93 L 08/10/24 08:30 O2 Del Method Room Air 08/10/24 08:30 Documenting provider has reviewed patient's vital signs: yes Common normals: no apparent distress and oriented x3 General appearance: cooperative Respiratory Common normals: normal respiratory effort and clear to auscultation bilaterally Effort & inspection: able to speak in complete sentences Auscultation: clear to auscultation bilaterally Cardio Common normals: regular rate, S1 normal heart sound and S2 normal heart sound Rate: regular rate Heart sounds: S1 normal and S2 normal GI Common normals: Normal to inspection, nondistended, normoactive bowel sounds present, soft to palpation, non-tender and no hepatosplenomegaly Palpation: soft and no hepatosplenomegaly Extremity Common normals: no clubbing, cyanosis or edema Neuro Common normals: oriented x3, moves all extremities and no focal motor deficits Psych Common normals: mental status grossly normal, denies hallucinations, denies homicidal ideation and denies suicidal ideation DS: Data Data Completed and Pending Labs on day of discharge: Labs from last 24 hours 08/09/24 08/09/24 15:19 12:25 WBC 6.4 RBC 3.91 L Hgb 12.1 Hct 38.3 MCV 98.0 MCH 30.9 MCHC 31.6 RDW 14.0 Plt Count 226 MPV 10.0 Neut % (Auto) 65.4 Lymph % (Auto) 23.0 [place] % (Auto) 9.9 Eos % (Auto) 0.8 L Baso % (Auto) 0.6 Neut # (Auto) 4.2 Lymph # (Auto) 1.5 [place] # (Auto) 0.6 Eos # (Auto) 0.1 Baso # (Auto) 0.0 Abs Immat Gran (auto) 0.02 Imm/Tot Granulo (auto) 0.3 PT 11.4 INR 1.08 APTT 25.4 Sodium 141 Potassium 4.1 Chloride 104 Carbon Dioxide 30.7 Anion Gap 10.4 BUN 16.0 Creatinine 0.94 Est GFR ( Amer) >60 Est GFR (Non-Af Amer) 57 L BUN/Creatinine Ratio 17.0 Glucose 100 Calcium 9.3 Total Bilirubin 0.4 AST 18 ALT 9 L Alkaline Phosphatase 87 Total Protein 6.8 Albumin 3.0 L Globulin 3.8 Albumin/Globulin Ratio 0.8 Discharge Plan Discharge Disposition: Home, Self-Care Condition: Good Discharge Medications: New cephalexin 500 mg capsule 500 mg PO Q12H 1 Days Qty: 2 0RF Continued Eliquis 5 mg tablet 5 mg PO Q12H allopurinol 100 mg tablet 100 mg PO DAILY magnesium oxide 400 mg (241.3 mg magnesium) tablet 400 mg PO BID omeprazole 20 mg capsule,delayed release(DR/EC) 20 mg PO .daily mirabegron 50 mg tablet extended release 24 hr 50 mg PO Q24H cholecalciferol (vitamin D3) 125 mcg (5,000 unit) capsule 5,000 unit PO DAILY vitamin B complex Tablet 1 tab PO DAILY multivitamin [Daily Multi-Vitamin] Tablet 1 tab PO DAILY Activity: increase activity as tolerated Diet: advance to your usual diet Print Language: Indonesian Patient Instructions: Cephalexin (By mouth), Ureteral Stent Placement (DC), Ureteroscopy (DC) Activity Restrictions/Additional Instructions: Start prophylactic antibiotic the morning of stent removal. Tylenol 650-1000 mg every 6 hours as needed for post-op pain. AZO for urinary discomfort/burning can be purchased at local pharmacy. This will make your urine orange. Return to ER for fevers > 101.5F, uncontrolled nausea/emesis, uncontrolled pain, or inability to void. The ureteral stent is not permanent and needs to be removed or exchanged within 3 months to prevent encrustation, infection, invasive procedures and/or permanent renal damage. Ok to restart eliquis after 24 hours. Referrals: Cyn Garza MD [Physician] - (Office to call for cystoscopy, stent removal in 1-2 weeks) Follow Up Appointments: F.u with Urology in 1-2 weeks
[2024-08-10 11:19] VITALS: O2SAT 94
--- NOTE | 2024-08-11 15:55 | CM.DCFOLLOWU ---
Person spoke with:patient How are you feeling?well How is your pain?minimal Did you understand your discharge instructions?yes Do you have any questions about your discharge instructions?yes Were you given any prescriptions at discharge?yes Were you able to get your prescriptions filled?yes Do you understand how to take your medications as ordered?yes Do you have any questions about your follow up appointment and do you plan to keep your follow up appointment? no questions, Dr. Leonard office will call with follow up apt Is there anything else that you would like to discuss?no Questions/Comments/Concerns/Other:none
--- NOTE | 2024-08-11 15:57 | CM.DCFOLLOWU ---
08/11/24 2nd attempt, no answer
[2024-08-15 14:08] LABS: Calcium Oxalate Dihydrate 40 % (.); Calcium Oxalate Monohydrate 60 % (.); Size 4x3 mm (.)
== END 2024-08-10 14:09 | disposition home or self-care (01) ==
LOC: MS 16:09 → SURGOUT 08-10 07:08 → MS 08-10 07:08
PROVIDERS: Admitting Provider Internal Medicine; PCP Family Medicine; Visit Provider Urology
PROC: (CPT 52356; principal; 2024-08-09 13:00)
DX: N13.2 Hydronephrosis with renal and ureteral calculous obstruction (principal); Z79.01 Long term (current) use of anticoagulants; Z86.711 Personal history of pulmonary embolism; Z90.5 Acquired absence of kidney; Z86.14 Personal history of Methicillin resistant Staphylococcus aureus infection; K21.9 Gastro-esophageal reflux disease without esophagitis; Z96.643 Presence of artificial hip joint, bilateral; Z90.710 Acquired absence of both cervix and uterus; Z90.49 Acquired absence of other specified parts of digestive tract; N39.41 Urge incontinence; I71.9 Aortic aneurysm of unspecified site, without rupture; Z86.718 Personal history of other venous thrombosis and embolism
CPT/HCPCS: 52356; 36415; 74420; 80053; 82365; 85025; 85610; 85730; 94761; 99999; G0378; J0690; J0696; J1100; J2250; J2405; J2704; J3010; Q9966

== ENCOUNTER 2024-08-21 14:53 | Outpatient (OUT) | payer MEDICARE, SELFPAY | END 2024-08-21 14:54 | disposition home or self-care (01) | LOC: PST 14:53 | PROVIDERS: PCP Family Medicine; Visit Provider Urology | DX: Z01.818 Encounter for other preprocedural examination (principal); N13.2 Hydronephrosis with renal and ureteral calculous obstruction ==

== ENCOUNTER 2024-08-23 12:23 | Day surgery (SDC) | payer MEDICARE, SELFPAY ==
[2024-08-23 12:36] VITALS: BP 126/94; PULSE 55; TEMP 36.2; O2SAT 96
[2024-08-23] MEDS: LIDOCAINE 2% JELLY 10 ML UR (13:15)
[2024-08-23 13:17] VITALS: BP 144/82; PULSE 67; O2SAT 96
[2024-08-23 13:18] VITALS: BP 148/82; PULSE 67; O2SAT 97
--- NOTE | 2024-08-23 13:24 | PM.URSON ---
Urology Surgery Operative Note Operative Note Procedure Date: 08/23/24 Time Out Performed: yes Pre-op Diagnosis: Left ureteral stent Post-op Diagnosis: same as pre-op Procedures performed: Cystoscopy, left ureteral stent removal Anesthesia: local Primary Surgeon: Cyn Garza Complications: none Estimated blood loss (mL): 0 Findings: Left indwelling ureteral stent removed without difficulty Specimens: none Drains: none Indications for Procedures: 83 year old female is here for cystoscopy, left ureteral stent removal following left ureteroscopy, laser lithotripsy/stone extraction, stent exchange on 08/09/24. Risks were discussed including but not limited to bleeding, pain, infection, damage to surrounding structures, inability to retrieve stent, and need for additional procedures. Detailed description of Procedure: After informed consent was obtained, the patient was brought to the procedure room and remained on the patient gurney. The patient received preoperative PO antibiotics. They were positioned in supine frogleg position with the appropriate pressure points padded, prepped, and draped in the usual sterile fashion for this procedure. An operative safety timeout was performed confirming the patient's identity, laterality and procedure, and all present agreed to proceed. Lidocaine gel was inserted per urethra. I began by inserting a flexible cystoscope into the patient's bladder without difficulty. There were no obvious tumors, lesions or stones. I turned my attention to the left ureteral orifice and grasped the indwelling stent using flexible graspers through the cystoscope. The stent was removed from the bladder in its entirety without difficulty. The cystoscope was removed. The patient tolerated the procedure well without complication. Plan: Dc home. -Follow up in 2 months with Renal US to ensure silent obstruction does not develop -24 hr urine litholink kit and serum metabolic labs to be sent to patient for metabolic stone workup -Boubacarabealyse sent to [facility] for OAB per pt request
== END 2024-08-23 13:31 | disposition home or self-care (01) ==
PROVIDERS: PCP Family Medicine; Visit Provider Urology
PROC: (CPT 52310; principal; 2024-08-23 13:00)
DX: Z46.6 Encounter for fitting and adjustment of urinary device (principal); N13.2 Hydronephrosis with renal and ureteral calculous obstruction
CPT/HCPCS: 52310

== ENCOUNTER 2025-02-16 08:42 | Outpatient (OUT) | payer MEDICARE, SELFPAY ==
--- NOTE | 2025-02-16 09:00 | CA_ITS ---
Patient Name: CUATE GOODMAN MR#: [id number] : 1940 Exam Date: 02/16/2025 Ordering Doctor: DR. CEFERINO QUIÑONEZ M.D. 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 DESCRIPTION: COMPLETE ECHOCARDIOGRAM Real-time transthoracic echocardiography with 2D, M-mode, spectral and color flow Doppler performed. QUALITY: Technical quality was adequate. LEFT VENTRICLE: Normal chamber size. Borderline left ventricular hypertrophy. The septum is abnormal in motion likely due to bundle branch block. There is hypokinesis of the basal inferior and inferolateral hendrickson. Global left ventricular systolic function is mildly decreased. LV EF: Estimated left ventricular ejection fraction is 45-50%. DIASTOLIC: Grade II diastolic dysfunction. ATRIAL SEPTUM: LEFT ATRIUM: Mild dilatation. RIGHT ATRIUM: Mild dilatation. RIGHT VENTRICLE: Normal chamber size. Mildly decreased right ventricular systolic function. TRICUSPID VALVE: Normal mobility and thickness. No stenosis with trivial regurgitation. Mild pulmonary hypertension. RVSP 37 mmHg MITRAL VALVE: Normal mobility and thickness. No evidence of mitral valve stenosis. There is no mitral annular calcification. Trivial mitral regurgitation. AORTIC VALVE: Normal trileaflet appearance. Mildly calcified aortic valve. Normal leaflet mobility. No evidence of aortic valve stenosis. No aortic regurgitation. AORTIC ROOT: Normal diameter and appearance, measuring 3.6 cm. The ascending aorta is mildly dilated measuring 4.1 cm. PULMONIC VALVE: Normal thickness and mobility. No stenosis. Trivial regurgitation. PERICARDIUM: No evidence of pericardial effusion. IVC: Collapses with inspiration. Mildly dilated measuring 2.2 cm PLEURA: CONCLUSION: 1. Normal left ventricular size with mildly reduced systolic function. Estimated LVEF is 45 to 50%. There is hypokinesis of the basal inferior and inferior lateral hendrickson. 2. Normal right ventricular size with mildly reduced systolic function. 3. Mild biatrial dilatation. 4. Grade 2 diastolic dysfunction. 5. No significant valvular dysfunction. 6. Mildly elevated right-sided pressures. 7. Mildly dilated ascending aorta measuring 4.1 cm. Adult Echocardiography Procedure Report Left Ventricle LVEDD (3.7 - 5.6 cm): 5.39 cm LVESD (2.2 - 4.0 cm): 4.16 cm LVIVS thickness (0.6 - 1.2 cm): 1.03 cm LVPW thickness (0.5 - 1.0 cm): 1.06 cm e': 0.08 m/s E - e': 8.61 LVOT Max Gradient: 2.55 mm[Hg] LVOT Area (cm2): 0.80 m/s Peak Velocity (LVOT): 0.80 m/s Mean Velocity (LVOT): 0.54 m/s LVOT Diameter 2.24 cm Left Ventricular Ejection Fraction: 45-50 % Left Atrium LA Volume Index (2D A2C): 42.58 ml/m2 Left Atrium Systolic Dimension: 3.41 cm Mitral Valve MV E to A Ratio: 0.87 Mitral Valve A-Wave Peak Velocity: 0.84 m/s Mitral Valve E-Wave Peak Velocity: 0.73 m/s Right Ventricle RV Internal Diastolic Dimension: 3.82 cm Aorta AO Root Diam: 3.60 cm Ascending Ao Diam: 4.04 cm Aortic Valve AoV Area (Peak Bill): 2.16 cm2, 2.16 cm2 AoV Area (VTI): 2.33 cm2, 2.33 cm2 Peak Velocity(Antegrade Flow): 1.46 m/s Peak Gradient(Antegrade Flow): 8.50 mm[Hg] Mean Velocity(Antegrade Flow): 0.94 m/s Mean Gradient(Antegrade Flow): 4.24 mm[Hg] Velocity Time Integral: 32.14 cm Tricuspid Valve Peak Velocity (Regurgitant Flow): 1.86 m/s, 2.13 m/s, 2.69 m/s Pulmonic Valve Peak Velocity: 0.82 m/s Peak Gradient: 2.48 mm[Hg], 2.89 mm[Hg] Right Atrium Right Atrium Systolic Pressure: 44.42 ml, 44.42 ml Dictated by: Andrew Chmapion M.D. on 02/16/2025 at 17:56 Approved by: Andrew Champion M.D. on 02/16/2025 at 18:02
[2025-02-16 10:27] LABS: Cholesterol 175 mg/dL (<=200); HDL Cholesterol 67 mg/dL (40-60); Triglycerides 125 mg/dL (<=150); VLDL CHOLESTEROL 25.0 mg/dL
== END 2025-02-16 08:43 | disposition home or self-care (01) ==
LOC: CARD 08:44
PROVIDERS: PCP Family Medicine; Visit Provider Internal Medicine Cardiovascular Disease
DX: I71.21 Aneurysm of the ascending aorta, without rupture (principal); E78.5 Hyperlipidemia, unspecified
CPT/HCPCS: 36415; 80061; 93306

== ENCOUNTER 2025-02-16 09:05 | Outpatient (OUT) | payer MEDICARE, SELFPAY ==
--- OUTSIDE RECORDS SUMMARY | 2024-12-25 05:05 | XMS_ITS ---
Author Organization [facility] in [place] Address [address] [place] [address] Care Team Providers Care Hearing Aid Mechanic Name Role Phone Tian Kuhn Primary Care Provider [phone] REASON FOR VISIT meds needing sent Encounters Encounter Location Date Provider Diagnosis [facility] [address] [place] [address] 12/25/2024 Tian Kuhn Plan Of Treatment No Information Progress Notes * Althea SANCHEZ MDOB:1940 (84 yo F)Acc No.[id number]:12/25/2024 Patient: Althea STINSON :1940 A ge:84 Y S ex:Female Address:[address] [place] [address], [address] * true * Date: Generated for Jayi perry/Gabog/eTransmitting on: 0 02/16/2025 09:09 AM EDT
--- OUTSIDE RECORDS SUMMARY | 2025-01-16 09:14 | XMS_ITS ---
Author Organization [facility] in [place] Address [address] [place] [address] Care Team Providers Care Water Carter Name Role Phone Kuhn Tian Primary Care Provider REASON FOR VISIT med refill Medications Medication SIG (Take, Route, Frequency, Duration) Notes Start Date End Date Status MAGnesium-Oxide 400 (240 Mg) MG 1 tablet with food Orally tid for 90 days 05/09/2024 Active Encounters Encounter Location Date Provider Diagnosis [facility] [address] [place] [address] 01/16/2025 Tian Kuhn Hypomagnesemia E83.4 2 Assessments Encounter Date Diagnosis (ICD Code) Assessment Notes Treatment Notes Treatment Clinical Notes Section Notes 01/16/2025 Hypomagnesemia (ICD-10 - E83.42) Plan Of Treatment Medication Medication Name Sig Start Date Stop Date Notes MAGnesium-Oxide 400 (240 Mg) MG 1 tablet with food Orally tid for 90 days 05/09/2024 Progress Notes * Althea SANCHEZ MDOB:1940 (84 yo F)Acc No.[id number]:01/16/2025 Patient: Jessica Althea WEINSTEIN :1940 A ge:84 Y S ex:Female Address:[address] [place] [address], [phone] * Refills Refill MAGnesium-Oxide Tablet, 400 (240 Mg) MG, Orally, 270 Tablet, 1 tablet with food, tid, 90 days, Refills=1 * true * Date: Generated for Daily amador/Seth/eTransmitting on: 0 02/16/2025 09:08 AM EDT
--- OUTSIDE RECORDS SUMMARY | 2025-01-17 05:12 | XMS_ITS ---
Author Organization [facility] in [place] Address [address] [place] [address] Care Team Providers Care Plisse Machine Operator Name Role Phone Tian Kuhn Primary Care Provider REASON FOR VISIT black stools Encounters Encounter Location Date Provider Diagnosis [facility] [address] [place] [address] 01/17/2025 Tian Kuhn Plan Of Treatment No Information Progress Notes * Althea SANCHEZ MDOB:1940 (84 yo F)Acc No.[id number]:01/17/2025 Patient: Althea STINSON :1940 A ge:84 Y S ex:Female Address:[address] [place] [address], [phone] * true * Date: Generated for Jayi perry/Seth/eTransmitting on: 0 02/16/2025 09:09 AM EDT
--- OUTSIDE RECORDS SUMMARY | 2025-02-16 09:09 | XMS_ITS | Patient Health Record ---
Author Organization [facility] in [place] Address [address] [place] [address] Care Team Providers Care Nanotechnology Technician Name Role Phone Tian Kuhn Primary Care Provider Allergies Allergen (clinical drug ingredient) Drug/Non Drug Allergy documented on EMR Reaction Allergy Type Onset Date Status morphine Morphine vomiting Drug Allergy Active Results Component Value Reference Range Notes CBC AUTO DIFF Reviewed date:07/19/2024 03:46:13 PM Interpretation: Performing Lab: Notes/Report: [facility] , White Blood Count 12.4 4.0-11.0 10 3/uL Red Blood Count 3.52 4.20-5.40 10 6/uL Hemoglobin 11.0 12.0-16.0 g/dL Hematocrit 34.4 36.0-48.0 % Mean Corpuscular Volume 97.7 81.0-99.0 fL Mean Corpuscular Hemoglobin 31.3 26.7-34.0 pg Mean Corpuscular HGB Conc 32.0 29.9-35.2 g/dL Red Cell Distribution Width 14.2 11.0-15.0 % Platelet Count 235 150-450 10 3/uL Mean Platelet Volume 10.1 9.5-13.5 fL Neutrophils Percent Auto 82.7 43.0-75.0 % Lymphocytes Percent Auto 7.3 20.5-60.0 % Monocytes Percent Auto 8.5 1.7-12.0 % Eosinophils Percent Auto 0.8 0.9-7.0 % Basophils Percent Auto 0.3 0.2-2.0 % Immature Granulocytes Pct Auto 0.4 0.0-0.5 % Neutrophils Absolute Auto 10.3 1.4-6.5 10 3/uL Lymphocytes Absolute Auto 0.9 1.2-3.8 10 3/uL Monocytes Absolute Auto 1.1 0.3-0.8 10 3/uL Eosinophils Absolute Auto 0.1 0.0-0.7 10 3/uL Basophils Absolute Auto 0.0 0.0-0.1 10 3/uL Immature Granulocytes Abs Auto 0.05 0.00-0.03 10 3/uL Performing Lab: see note - [facility] LB LACTATE or LACTIC ACID Reviewed date:07/19/2024 03:46:13 PM Interpretation: Performing Lab: Notes/Report: Comment only run off er or blood this am - er best [facility] , Lactate/Lactic Acid 1.5 0.4-2.0 mmol/L Performing Lab: see note [facility] PROF CHEM 8 (BAS METB) Reviewed date:07/19/2024 03:46:13 PM Interpretation: Performing Lab: Notes/Report: [facility] , Sodium 139 136-145 mmol/L Potassium 4.2 3.5-5.1 mmol/L Chloride 105 98-107 mmol/L Carbon Dioxide 26.1 21.0-32.0 mmol/L Anion Gap 12.1 Glucose 101 74-106 mg/dL Blood Urea Nitrogen 34.0 7.0-18.0 mg/dL Creatinine 1.52 0.55-1.02 mg/dL Estimated GFR ( Chelsea 40 >=60 mL/min/1.73m 2 Estimated GFR (Non- Romana 33 >=60 mL/min/1.73m 2 BUN Creatinine Ratio 22.4 Calcium 8.8 8.5-10.1 mg/dL Performing Lab: see note - [facility] Troponin I High Sensitivity Reviewed date:07/23/2024 08:53:13 PM Interpretation: Performing Lab: Notes/Report: [facility] , Troponin I High Sensitivity 12.2 4.0-51.3 pg/mL 99TH PERCENTILE = 51.4 PG/ML USED IN ISOLATION BUT SHOULD BE INTERPRETED IN CONJUNCTION UNIVERSAL DEFINITION OF MYOCARDIAL INFARCTION. THE UPPER HAS BEEN CONFIRMED THE DECISION THRESHOLD FOR UT NOTE: HIGH-SENSITIVITY TROPONIN ASSAY IS NOT INTENDED TO BE CUT-OFF POINTS HAVE BEEN ESTABLISHED BASED ON THE FOURTH PERCENTILE OF cTnI DISTRIBUTION IN A REFERENCE POPULATION, WITH OTHER DIAGNOSTIC AND CLINICAL INFORMATION. DIAGNOSIS. REFERENCE LIMIT (URL) OF TROPONIN, DEFINED THE 99TH Performing Lab: see note ML - [facility] LB XR urethrogram retrograde Reviewed date:07/19/2024 03:46:13 PM Interpretation: Performing Lab: Notes/Report: Source Facility: [facility]-[address] [place] [address] [place] [address] XRay Report Signed Patient: CUATE SNACHEZ MR#: [id number] : 1940 Acct:[id number] Age/Sex: 83 / F ADM Date: 07/18/24 Loc: [place] 218-[address]: Santosh Shafer M.D. Ordering Physician: Santosh Shafer M.D. Date of Service: 07/18/24 Procedure(s): XR urethrogram retrograde Accession Number(s): [id number] cc: TIAN KUHN D.O.; Santosh Shafer M.D. [place] [address] Patient Name: CUATE SANCHEZ MRN: [id number] date: 1940 Sex: F Assigned Patient Location: [place] Current Patient Location: [place] Accession/Order Number: [id number] Exam Date: 07/18/2024 13:14 Report Date: 07/18/2024 15:53 At the request of: SANTOSH SHAFER Procedure: XR urethrogram retrograde EXAM: XR urethrogram retrograde HISTORY: Left kidney stone, left retrograde, left stent placement COMPARISON: None. TECHNIQUE: Single image. 15.9 mgy FINDINGS: Single image demonstrates placement of a left double-J ureteral stent in normal position. IVC filter observed XR/XR urethrogram retrograde IMPRESSION: Left ureteral stent Electronically authenticated by: KIMBER MALLOY Date: 07/18/2024 15:53 Dictated By: Kimber Malloy M.D. Signed By: 07/18/24 1556 DD/ 155 TD/TT: Investigator Fraud: [place] [address] XRay Report Signed Patient: Jazmine SANCHEZ MR#: [id number] : 1940 Acct:[id number] Age/Sex: 83 / F ADM Date: 07/18/24 Loc: [place] 218-[address]: Alon Shafer M.D. Ordering Physician: Santosh Shafer M.D. Date of Service: 07/18/24 Procedure(s): XR urethrogram retrograde Accession Number(s): [id number] cc: TIAN KUHN D.O.; Santosh Shafer M.D. [place] [address] Patient Name: CUATE SANCHEZ MRN: [id number] date: 1940 Sex: F Assigned Patient Loc ation: [place] Current Patient Loca tion: Accession/Order Numb er: [id number] Exam Date: 13:14 Report Date: 07/18/2024 15:53 At the request of: SANTOSH SHAFER Procedure: XR urethr ogram retrograde EXAM: XR urethrogram retrograde HISTORY: Left kidney stone, left retrograde, left stent placement COMPARISON: None. TECHNIQUE: Single im age. 15.9 mgy FINDINGS: Single image demonst rates placement of a left double-J ureteral stent in normal position. IVC filter observed X R/XR urethrogram retrograde IMPRESSION: Left ureteral stent Electronically authenticated by: KIMBER MALLOY Date: 07/18/2024 15:53 Dictated By: Tereso Malloy M.D. Signed By: 07/18/24 1556 DD/ 1553 TD/TT: Investigator Fraud: [employer] Reviewed date:05/02/2024 06:19:49 PM Interpretation: Performing Lab: Notes/Report: Source Facility: [facility]-[address] [place] [address] [place] [address] Cardiology Report Signed Patient: CUATE SANCHEZ MR#: [id number] : 1940 Acct:[id number] Age/Sex: 83 / F ADM Date: 05/01/24 Loc: [place] 202-[address]: Santosh Shafer M.D. Ordering Physician: Santosh Shafer M.D. Date of Service: 05/02/24 Procedure(s): CA echo limited Accession Number(s): [id number] cc: TIAN KUHN D.O.; Santosh Shafer M.D. Patient Name: CUATE SANCHEZ MR#: [id number] : 1940 Exam Date: 05/02/2024 Ordering Doctor: DR Santosh Shafer . ECHOCARDIOGRAM REPORT PROCEDURE: CA ECHO LIMITED INDICATIONS: Dyspnea, Chest pain COMPARISON: None. DESCRIPTION: Limited ECHOCARDIOGRAM Real-time transthoracic echocardiography with 2D and M-mode performed. QUALITY: Technical quality was adequate. LEFT VENTRICLE: Normal chamber size. Borderline left ventricular hypertrophy. LV EF: Left ventricular systolic function at lower limits of normal, no wall motion abnormalities, ejection fraction approximately 50% DIASTOLIC: ATRIAL SEPTUM: LEFT ATRIUM: Mild dilatation. RIGHT ATRIUM: Mild dilatation. RIGHT VENTRICLE: Normal chamber size. Normal systolic function TRICUSPID VALVE: Normal mobility and thickness. MITRAL VALVE: Mildly thickened with normal mobility. There is no mitral annular calcification. AORTIC VALVE: Normal trileaflet appearance. Mildly calcified aortic valve AORTIC ROOT: Normal diameter and appearance. PULMONIC VALVE: Normal thickness and mobility. PERICARDIUM: No evidence of pericardial effusion. IVC: IVC is dilated (2.3 cm) with no collapse. PLEURA: CONCLUSION: Low normal ventricular function without wall motion abnormalities, ejection fraction 50% Biatrial enlargement Sclerotic aortic valve, no Doppler study was performed Dilated IVC with reduced respiratory collapse consistent with elevated CVP, RAP 15 mmHg Adult Echocardiography Procedure Report Left Ventricle LVEDD (3.7 - 5.6 cm): 5.23 cm LVESD (2.2 - 4.0 cm): 3.69 cm LVIVS thickness (0.6 - 1.2 cm): 0.91 cm LVPW thickness (0.5 - 1.0 cm): 1.07 cm LVOT Diameter 2.38 cm Left Atrium LA Volume Index (2D A2C): 36.81 ml/m2 Left Atrium Systolic Dimension: 3.12 cm Mitral Valve Right Ventricle Aorta AO Root Diam: 3.74 cm Ascending Ao Diam: 2.73 cm Aortic Valve Tricuspid Valve Pulmonic Valve Right Atrium Right Atrium Systolic Pressure: 63.70 ml, 63.70 ml Dictated by: Vinita Alvarez MD on 05/02/2024 at 16:07 Approved by: Vinita Alvarez MD on 05/02/2024 at 16:15 Dictated By: Vinita Alvarez M.D. Signed By: 05/02/241615 DD/ 14 TD/TT: Investigator Fraud: [place] [address] Cardiology Report Signed Patient: Jazmine SANCHEZ MR#: [id number] : 1940 Acct:[id number] Age/Sex: 83 / F ADM Date: 05/01/24 Loc: [place] 202- Attending Dr: Alon Shafer M.D. Ordering Physician: Santosh Shafer M.D. Date of Service: 05/02/24 Procedure(s): CA ech o limited Accession Number(s): [id number] cc: TIAN KUHN D.O.; Santosh Shafer M.D. Patient Name: CUATE SANCHEZ MR#: [id number] : 1940 Exam Date: 05/02/2024 Ordering Doctor: DR Santosh Shafer . ECHOCARDIOGRAM REPORT PROCEDURE: CA ECHO LIMITED INDICATIONS: Dyspnea , Chest pain COMPARISON: None. DESCRIPTION: Limited ECHOCARDIOGRAM Real-time transthoracic echocardiography wit h 2D and M-mode performed. QUALITY: Technical q uality was adequate. LEFT VENTRICLE: Norm al chamber size. Borderline left ventricular hypertrophy. LV EF: Left ventricu lar systolic function at lower limits of normal, no wall motion abnormal ities, ejection fraction approximately 50% DIASTOLIC: ATRIAL SEPTUM: LEFT ATRIUM: Mild dilatation. RIGHT ATRIUM: Mild dilatation. RIGHT VENTRICLE: Nor mal chamber size. Normal systolic function TRICUSPID VALVE: Nor mal mobility and thickness. MITRAL VALVE: Mildly thickened with normal mobility. There is no mitral annular calcification. AORTIC VALVE: Normal trileaflet appearance. Mildly calcified aortic valve AORTIC ROOT: Normal diameter and appearance. PULMONIC VALVE: Norm al thickness and mobility. PERICARDIUM: No evid ence of pericardial effusion. IVC: IVC is dilated (2.3 cm) with no collapse. PLEURA: CONCLUSION: Low normal ventricul ar function without wall motion abnormalities, ejection fraction 50% Biatrial enlargement Sclerotic aortic clarita ve, no Doppler study was performed Dilated IVC with red uced respiratory collapse consistent with elevated CVP, RAP 15 mmHg Adult Echocardiograp hy Procedure Report Left Ventricle LVEDD (3.7 - 5.6 cm) : 5.23 cm LVESD (2.2 - 4.0 cm) : 3.69 cm LVIVS thickness (0.6 - 1.2 cm): 0.91 cm LVPW thickness (0.5 - 1.0 cm): 1.07 cm LVOT Diameter 2.38 cm Left Atrium LA Volume Index (2D A2C): 36.81 ml/m2 Left Atrium Systolic Dimension: 3.12 cm Mitral Valve Right Ventricle Aorta AO Root Diam: 3.74 cm Ascending Ao Diam: 2.73 cm Aortic Valve Tricuspid Valve Pulmonic Valve Right Atrium Right Atrium Systoli c Pressure: 63.70 ml, 63.70 ml Dictated by: Vinita agrawal MD on 05/02/2024 at 16:07 Approved by: Vinita agrawal MD on 05/02/2024 at 16:15 Dictated By: Vinita Alvarez M.D. Signed By: 05/02/241615 DD/ 14 TD/TT: Investigator Fraud: BNP Reviewed date:05/02/2024 06:19:49 PM Interpretation: Performing Lab: Notes/Report: [facility] , NT Pro B Type Natriuretic Pept 621.0 <=1800.0 pg/mL Performing Lab: see note ML - [facility] LB DEXA Axial Skeleton (hips, p dave, spine)* Reviewed date:05/02/2024 06:19:49 PM Interpretation: Performing Lab: Notes/Report: VITAMIN D, 25 LEVEL (TOTAL) Reviewed date:05/02/2024 06:19:49 PM Interpretation: Performing Lab:[facility], [address], [place], [address] [phone] Notes/Report: * * * VITAMIN D, 25 HYDROXY GENERAL GUIDELINE * * * DEFICIENCY = < OR = 20.0 NG/ML INSUFFICIENCY = 20.1 - 29.9 NG/ML SUFFICIENCY = 30.0 - 100.0 NG/ML TOXICITY = > 100.1 NG/ML FACILITY: [facility] [id number] VITAMIN D, 25 46.8 (30.0 - 100.0) NG/ML PROF CHEM 8 (BAS METB) Reviewed date:07/23/2024 08:53:13 PM Interpretation: Performing Lab: Notes/Report: [facility] , Sodium 142 136-145 mmol/L Potassium 4.5 3.5-5.1 mmol/L Chloride 109 98-107 mmol/L Carbon Dioxide 26.7 21.0-32.0 mmol/L Anion Gap 10.8 Glucose 96 74-106 mg/dL Blood Urea Nitrogen 31.0 7.0-18.0 mg/dL Creatinine 1.20 0.55-1.02 mg/dL Estimated GFR ( Chelsea 52 >=60 mL/min/1.73m 2 Estimated GFR (Non- Romana 43 >=60 mL/min/1.73m 2 BUN Creatinine Ratio 25.8 Calcium 8.9 8.5-10.1 mg/dL Performing Lab: see note ML - [facility] LB CBC AUTO DIFF Reviewed date:07/23/2024 08:53:13 PM Interpretation: Performing Lab: Notes/Report: [facility] , White Blood Count 6.2 4.0-11.0 10 3/uL Red Blood Count 3.63 4.20-5.40 10 6/uL Hemoglobin 11.2 12.0-16.0 g/dL Hematocrit 35.8 36.0-48.0 % Mean Corpuscular Volume 98.6 81.0-99.0 fL Mean Corpuscular Hemoglobin 30.9 26.7-34.0 pg Mean Corpuscular HGB Conc 31.3 29.9-35.2 g/dL Red Cell Distribution Width 14.0 11.0-15.0 % Platelet Count 222 150-450 10 3/uL Mean Platelet Volume 10.2 9.5-13.5 fL Neutrophils Percent Auto 71.6 43.0-75.0 % Lymphocytes Percent Auto 15.9 20.5-60.0 % Monocytes Percent Auto 10.0 1.7-12.0 % Eosinophils Percent Auto 1.9 0.9-7.0 % Basophils Percent Auto 0.3 0.2-2.0 % Immature Granulocytes Pct Auto 0.3 0.0-0.5 % Neutrophils Absolute Auto 4.5 1.4-6.5 10 3/uL Lymphocytes Absolute Auto 1.0 1.2-3.8 10 3/uL Monocytes Absolute Auto 0.6 0.3-0.8 10 3/uL Eosinophils Absolute Auto 0.1 0.0-0.7 10 3/uL Basophils Absolute Auto 0.0 0.0-0.1 10 3/uL Immature Granulocytes Abs Auto 0.02 0.00-0.03 10 3/uL Performing Lab: see note - [facility] LB Troponin I High Sensitivity Reviewed date:07/23/2024 08:53:13 PM Interpretation: Performing Lab: Notes/Report: [facility] , Troponin I High Sensitivity 13.2 4.0-51.3 pg/mL DIAGNOSIS. NOTE: HIGH-SENSITIVITY TROPONIN ASSAY IS NOT INTENDED TO BE REFERENCE LIMIT (URL) OF TROPONIN, DEFINED THE 99TH PERCENTILE OF cTnI DISTRIBUTION IN A REFERENCE POPULATION, USED IN ISOLATION BUT SHOULD BE INTERPRETED IN CONJUNCTION UNIVERSAL DEFINITION OF MYOCARDIAL INFARCTION. THE UPPER HAS BEEN CONFIRMED THE DECISION THRESHOLD FOR [place] 99TH PERCENTILE = 51.4 PG/ML WITH OTHER DIAGNOSTIC AND CLINICAL INFORMATION. CUT-OFF POINTS HAVE BEEN ESTABLISHED BASED ON THE FOURTH Performing Lab: see note - [facility] LB ECG 12 lead Reviewed date:07/23/2024 08:53:13 PM Interpretation: Performing Lab: Notes/Report: Source Facility: [facility]-[address] [place] [address] [place] [address] Electrocardiograph Report Signed Patient: CUATE SANCHEZ MR#: [id number] : 1940 Acct:[id number] Age/Sex: 83 / F ADM Date: 07/18/24 Loc: [place] 218-[address]: Santosh Shafer M.D. Ordering Physician: Santosh Shafer M.D. 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 Signed By: 07/22/24 0808 DD/ 1538 TD/TT: Investigator Fraud: [place] [address] Electrocardiograph Report Signed Patient: Jazmine SANCHEZ MR#: [id number] : 1940 Acct:[id number] Age/Sex: 83 / F ADM Date: 07/18/24 Loc: [place] 218-[address]: Alon Shafer M.D. Ordering Physician: Santosh Shafer M.D. Date of Service: 07/19/24 Procedure(s): ECG 12 lead Accession Number(s): [id number] cc: [facility] Test Date: 2024-07-19 Pat Name: CUATE KERR Department: 32 Room: [facility] Gender: Female Obgyn Hospitalist Physician: : 1940 Requ ested By: TIAN KUHN Order Number: [id number] Reading MD: SAMUEL RIVAS Measurements Intervals Graham Rate: 78 P: -51 [place]: 218 QRS: 3 QRSD: 147 T: 23 QT: 429 QTc: 490 Interpretive Statements ECTOPIC ATRIAL RHYTH M WITH FIRST DEGREE AV BLOCK RIGHT BUNDLE BRANCH BLOCK [120+ ms QRS DURATION, UPRIGHT V1, 40+ ms S IN I/aVL/V4/V5/V6] Compared to ECG 04/18 04:31:50 First degree AV bloc k now present Ventricular prematur e complex(es) no longer present Electronically Demi d On 07-22-2024 8:08:05 EST by SAMUEL RIVAS Dictated By: Brenden Rivas D.OKaden Signed By: 07/22/24 0808 DD/ 1538 TD/TT: Investigator Fraud: Reason For Referral No Information Medications Medication SIG (Take, Route, Frequency, Duration) Notes Start Date End Date Status MAGnesium-Oxide 400 (240 Mg) MG 1 tablet with food Orally tid for 90 days 05/09/2024 Active Allopurinol 100 mg TAKE 1 TABLET DAILY Active Eliquis 5 MG 1 tablet Orally Twice a day Active Vitamin B 12 otc-1000mcg Activ e Omeprazole 20 mg TAKE 1 CAPSULE DAILY 30 MINUTES BEFORE MORNING MEAL Active Tolterodine Tartrate ER 4 MG TAKE 1 CAPSULE BY MOUTH DAILY for 90 Not-Taking Multivitamin - 1 tablet Orally Once a day Active Vitamin D 5000 IU daily Active Myrbetriq 25 MG 1 tablet Orally Once a day Active Furosemide 20 MG 1 tablet Orally Once a day for 90 days 12/25/2024 Active Social History Tobacco Use: Social History Observation Description Date Details (start date - stop date) Never Smoker NA - NA Tobacco Use/Smoking Question Answer Notes Patient is a nonsmoker Alcohol Screen (Audit-C) Question Answer Notes Did you have a drink contain ing alcohol in the past year? Yes How often did you have 6 or more drinks on one occasion in the past year? Monthly or less (1 point) Points 1 Interpretation Negative Problems Problem Type SNOMED Code ICD Code Onset Dates Problem Status W/U Status Risk Notes Problem 688293812 Gastro-esophagea l reflux disease without esophagitis (K21.9) Active confirmed Problem 43881978 Mild protein-calorie malnutrition (E44.1) Active confirmed Problem 28748497 Vitamin D deficiency, unspecified (E55.9) Active confirmed Problem 192419614 Morbid (severe) obesity due to excess calories (E66.01) Active confirmed Problem 891912182 Hypomagnesemia (E83.42) Active confirmed Problem 505865014 Other disorders of plasma-protein metabolism, not elsewhere classified (E88.09) Active confirmed Problem 738022796 Atrioventricular block, first degree (I44.0) Active confirmed Problem 609854188 Atrial premature depolarization (I49.1) Active confirmed Problem 277332102 Thoracic aortic ectasia (I77.810) Active confirmed Problem 835709314 Lymphedema, not elsewhere classified (I89.0) Active confirmed Problem 393524599449988 Unilateral prima ry osteoarthritis, left hip (M16.12) Active confirmed Problem 231725525 Mixed incontinen ce (N39.46) Active confirmed Problem 18286943 Unsteadiness on feet (R26.81) Active confirmed Problem 47844600 Chronic fatigue, unspecified (R53.82) Active confirmed Problem 905807622 Personal history of pulmonary embolism (Z86.711) Active confirmed Problem 188424868 Dependence on other enabling machines and devices (Z99.89) Active confirmed Problem Gastroesophageal reflux disease (498001935) GERD (gastroesophageal reflux disease) (K21.9) Active confirmed Problem Gout (08508203) Gout (M10.9) Active confirmed Problem Absent kidney (139822490) Solitary kidney, acquired (Z90.5) Active confirmed Problem Right bundle branch block (19671714) RBBB (I45.10) Active confirmed Problem Bladder incontinence (145750455) Bladder incontinence (R32) Active confirmed Problem Nephrolithiasis (03802126) Nephrolithiasis (N20.0) Active confirmed Problem Iron deficiency anemia (54619717) Iron deficiency anemia (D50.9) Active confirmed Problem 317272728 Lumbar spondylos is (M47.816) Active confirmed Problem Iron deficiency anemia (57176972) Anemia, iron deficiency (D50.9) Active confirmed Problem 704862639 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.46) Active confirmed Problem 321361479 BMI 50.0-59.9, adult (Z68.43) Active confirmed Problem Ureteral stone with hydronephrosis (N13.2) Active confirmed Problem Aneurysmal dilatation (10891624) Aneurysmal dilatation (I72.9) Active confirmed Problem Pulmonary hypertension (17124884) Pulmonary hypertension, unspecified (I27.20) Active confirmed Problem Malnutrition of mild degree (Weber: 75% to less than 90% of standard weight) (67556448) Mild protein malnutrition (E44.1) Active confirmed Problem 612202594 Body mass index [BMI] 45.0-49.9, adult (Z68.42) Active confirmed Problem 152755867 Body mass index [BMI] 40.0-44.9, adult (Z68.41) Active confirmed Vital Signs Heart Rate 84 /min 12/15/2024 Respiratory Rate 16 /min 12/15/2024 Blood pressure diastolic 78 mm Hg 12/15/2024 Oximetry 98 % 12/15/2024 Height 61 in 12/15/2024 Blood pressure systolic 132 mm Hg 12/15/2024 Weight 238 lbs 12/15/2024 BMI 44.96 kg/m2 12/15/2024 Encounters Encounter Location Date Provider Diagnosis [facility] [address] [place] [address] 08/17/2024 Tian Kuhn Personal history of pulmonary embolism Z86.711 [facility] [address] [place] [address] 12/25/2024 Tian Kuhn [facility] [address] [place] [address] 01/16/2025 Tian Kuhn Hypomagnesemia E83.4 2 [facility] [address] [place] [address] 01/17/2025 Tian Kuhn [facility] [address] [place] [address] 02/22/2024 Tian Kuhn [facility] [address] [place] [address] 03/06/2024 Tian Kuhn [facility] [address] [place] [address] 03/17/2024 Tian Kuhn [facility] [address] [place] [address] 04/04/2024 Tian Kuhn Mixed incontinence N39.46 [facility] [address] [place] [address] 04/05/2024 Tian Kuhn [facility] [address] [place] [address] 08/16/2024 Tian Kuhn Hypomagnesemia E83.4 2 [facility] [address] [place] [address] 05/08/2024 Tian Kuhn Chest pain, unspecif ied R07.9 ; Body mass index [BMI] 40.0-44.9, adult Z68.41 ; Morbid (severe) obesity due to excess calories E66.01 ; Hypomagnesemia E83.42 ; Vitamin D deficiency, unspecified E55.9 and Mild protein-calorie malnutrition E44.[address] [address] 03/17/2024 Tian Kuhn Other sites of candidiasis B37.89 ; Mixed incontinence N39.46 ; Asymptomatic menopausal state Z78.0 ; Vitamin D deficiency, unspecified E55.9 ; Encounter for Medicare annual wellness exam Z00.00 ; Morbid (severe) obesity due to excess calories E66.01 ; Body mass index [BMI] 40.0-44.9, adult Z68.41 ; Hypomagnesemia E83.42 ; Gastro-esophageal reflux disease without esophagitis K21.9 ; Personal history of pulmonary embolism Z86.711 ; Gout M10.9 ; Thoracic aortic ectasia I77.810 ; Unilateral primary osteoarthritis, left hip M16.12 and Dependence on other enabling machines and devices Z99.[address] [address] 12/15/2024 Tian Kuhn Hypomagnesemia E83.4 2 ; Gout M10.9 ; Thoracic aortic ectasia I77.810 ; Personal history of pulmonary embolism Z86.711 ; Vitamin D deficiency, unspecified E55.9 ; Iron deficiency anemia D50.9 ; Prediabetes R73.03 ; Chronic fatigue, unspecified R53.82 ; Lymphedema, not elsewhere classified I89.0 ; Morbid (severe) obesity due to excess calories E66.01 ; Body mass index [BMI] 40.0-44.9, adult Z68.41 ; Encounter for Medicare annual wellness exam Z00.00 ; Pulmonary hypertension, unspecified I27.20 ; Gastro-esophageal reflux disease without esophagitis K21.9 and Mixed incontinence N39.46 Assessments Encounter Date Diagnosis (ICD Code) Assessment Notes Treatment Notes Treatment Clinical Notes Section Notes 03/17/2024 Other sites of candidiasis (ICD-10 - B37.89) keep area clean and airated erx diflucan rtc prn 03/17/2024 Mixed incontinence (ICD-10 - N39.46) increase to 2 po daily monitor for side effects - dry mouth, constipation, blurry vision, etc monitor for UTI s/s 12/15/2024 Hypomagnesemia (ICD-10 - E83.42) lab - adjust tx based on this diet stable 12/15/2024 Gout (ICD-10 - M10.9) stable monitor uric acid - goal <6 diet 05/08/2024 Chest pain, unspecified (ICD-10 - R07.9) resolved non-cardiac ER if recurs rec stress test - pt to hold off start asa 81mg daily but monitor bleeding 05/08/2024 Body mass index [BMI] 40.0-44.9, adult (ICD-10 - Z68.41) 04/04/2024 Mixed incontinence (ICD-10 - N39.46) 08/16/2024 Hypomagnesemia (ICD-10 - E83.42) 08/17/2024 Personal history of pulmonary embolism (ICD-10 - Z86.711) 01/16/2025 Hypomagnesemia (ICD-10 - E83.42) 05/08/2024 Morbid (severe) obesity due to excess calories (ICD-10 - E66.01) diet/exercise 12/15/2024 Thoracic aortic ectasia (ICD-10 - I77.810) bp control monitor stable CT if s/s 03/17/2024 Asymptomatic menopausal state (ICD-10 - Z78.0) set up dexa - tx based on results ca + D 03/17/2024 Vitamin D deficiency, unspecified (ICD-10 - E55.9) lab - ?rx med needed 12/15/2024 Personal history of pulmonary embolism (ICD-10 - Z86.711) monitor for bleeding, otherwise it is lifelong 05/08/2024 Hypomagnesemia (ICD-10 - E83.42) monitor lab increase to tid 05/08/2024 Vitamin D deficiency, unspecified (ICD-10 - E55.9) continue vit D and monitor lab 12/15/2024 Vitamin D deficiency, unspecified (ICD-10 - E55.9) lab - adjust tx based on results stable 03/17/2024 Encounter for Medicare annual wellness exam (ICD-10 - Z00.00) rec prevnar 20 rec dtap q10 years rec shingrix rec flu shot yearly rec rsv vaccine set up dexa refuses yunior refuses colonoscopy/colo guard rtc 1 year labs yearly 03/17/2024 Morbid (severe) obesity due to excess calories (ICD-10 - E66.01) diet/exercise 12/15/2024 Iron deficiency anemia (ICD-10 - D50.9) labs - tx if abnormal 05/08/2024 Mild protein-calorie malnutrition (ICD-10 - E44.1) rec boost bid rec online tutor 12/15/2024 Prediabetes (ICD-10 - R73.03) monitor a1c diet/exercise eye exam yearly - dilated 03/17/2024 Body mass index [BMI] 40.0-44.9, adult (ICD-10 - Z68.41) 03/17/2024 Hypomagnesemia (ICD-10 - E83.42) lab yearly - adjust med based on this 12/15/2024 Chronic fatigue, unspecified (ICD-10 - R53.82) labs - tx based on results diet/exercise 12/15/2024 Lymphedema, not elsewhere classified (ICD-10 - I89.0) start lasix monitor bmp and K elevate legs ?lymphedema clinic 03/17/2024 Gastro-esophageal reflux disease without esophagitis (ICD-10 - K21.9) diet stable rtc 1 year 03/17/2024 Personal history of pulmonary embolism (ICD-10 - Z86.711) monitor for bleeding stable 12/15/2024 Morbid (severe) obesity due to excess calories (ICD-10 - E66.01) diet/exercise 12/15/2024 Body mass index [BMI] 40.0-44.9, adult (ICD-10 - Z68.41) 03/17/2024 Gout (ICD-10 - M10.9) diet uric acid yearly controlled call if s/s of flare up 03/17/2024 Thoracic aortic ectasia (ICD-10 - I77.810) monitor echo per cardio stable bp control 12/15/2024 Encounter for Medicare annual wellness exam (ICD-10 - Z00.00) rec flu shot/rsv/pn/celis grix - refuses rec yunior/dexa - refuses rec cologuard - refuses labs diet/exercise eye and dental exams yearly rtc 1 year no need for pap 12/15/2024 Pulmonary hypertension, unspecified (ICD-10 - I27.20) pt to set up echo at the hospital bp control cardio if worsens 03/17/2024 Unilateral primary osteoarthritis, left hip (ICD-10 - M16.12) fall precautions continue walker use f/u ortho as directd continue HEP improved dexa to eval bones based on ortho comment 03/17/2024 Dependence on other enabling machines and devices (ICD-10 - Z99.89) fall precautions 12/15/2024 Gastro-esophageal reflux disease without esophagitis (ICD-10 - K21.9) stable diet 12/15/2024 Mixed incontinence (ICD-10 - N39.46) f/u urology as directed monitor for UTI s/s and call 03/17/2024 Other monitor cbc d/c iron as she was only on it prophylactically get copy of hospital and rehab notes and MAR's to see what kidney medication she is talking about Plan Of Treatment Pending Test Test Name Order Date CMP (COMPLETE METABOLIC PANEL) FERRITIN 12/15/2024 HEMOGLOBIN A1C (GLYCO) 09/08/2023 HEMOGLOBIN A1C (GLYCO) 12/15/2024 MAGNESIUM 12/15/2024 MAGNESIUM 09/08/2023 LIPID PANEL (CHOL/TRIG/HDL/LDL) 09/08/19 24 IRON AND TIBC (WITH SAT) 12/15/2024 CBC WITH DIFF 09/08/2023 BMP (BASIC MET PANEL - W/GFR) 01/01/2023 T3 FREE (T3FR) 09/08/2023 T3 FREE (T3FR) 12/15/2024 T4 FREE (T4FR) 12/15/2024 T4 FREE (T4FR) 09/08/2023 TSH 09/08/2023 TSH 12/15/2024 URIC ACID 09/08/2023 URIC ACID 12/15/2024 VITAMIN D, 25 LEVEL (TOTAL) 12/15/2024 VITAMIN B12 LEVEL AND FOLATE (FOLIC ACID ) 12/15/2024 VITAMIN B12 LEVEL AND FOLATE (FOLIC ACID ) 09/08/2023 CMP (COMP MET WHITT) w/eGFR CKD-EPI 2024 CBC WITH DIFF 12/15/2024 Insurance Providers Payer Name Payer Address Payer Phone Subscriber Number Group Number Insured Name Patient Relationship to Insured Coverage Start Date Coverage End Date [employer] MED[employer]ARE [address] [place], [place] [id number] [employer] Self - patient is the insured 4 Medical (General) History Medical History History ICD Code hyperuricemia right bundle branch block diastolic dysfunction cobalamin deficiency DVT urinary incontinence HTN lymphedema of lower extremity b/l PE - 10/2022 prediabetes mild aneurysmal dilation of ascending ao rta - 4cm in 2023 diverticulosis LVH sclerotic aortic valve pulm HTN Surgical History Surgery Date(Month/Year) excision of right kidney colonoscopy cardiac catheterization hysterectomy cholecystectomy appendectomy total replacement of right hip joint revision of right total right total knee arthroscopy cataract surgery L eye IVC filter L TKA with revision due to infection L [facility] Hospitalization History Reason Date(Month/Year) PE 10/2022
--- OUTSIDE RECORDS SUMMARY | 2025-02-16 09:09 | XMS_ITS | Clinical Summary ---
Author Organization [facility] Address [address] [place] [address] Care Team Providers Care Professional Bondsman Name Role Phone Tian Kuhn DO Primary Care Provider [phone] Allergies Active Allergy Reactions Criticality Noted Date Comments Morphine Nausea and Vomiting High 05/03/2017 Other Reaction(s): GI intolerance Oxycodone Nausea and Vomiting High 05/03/2017 Other Reaction(s): GI intolerance Penicillins Hives High 11/03/2023 Medications Allopurinol 100 MG tablet Take 1 tablet by mouth daily. Active magnesium oxide 400 (240 Mg) MG Take 1 tablet by mouth 2 times daily. 10/02/19 24 Active omeprazole [address] capsule 1 capsule daily. qam 10/02/19 24 Active Eliquis 5 MG tablet Take 1 tablet by mouth every 12 hours. 10/02/19 24 Active cyanocobalamin 1000 MCG tablet Take 5 tablets by mouth. Active Multiple Vitamin (multivitamin) tablet Take 1 tablet by mouth daily. Active Cholecalciferol (Vitamin D-3) 25 MCG (1000 UT) capsule Take by mouth. Activ e Acetaminophen 325 MG tablet Take 2 tablets by mouth every 4 hours as needed for Mild Pain. 50 tablet 1 01/11/20 24 Active hydroCODone-aceta minophen 5-325 MG tabletIndications :Acute postoperative pain of left hip Take 1-2 tablets by mouth every 6 hours as needed for up to 7 days. Do not take over 4000mg acetaminophen daily. 30 tablet 01/11/20 24 Active Docusate 100 MG capsule Take 1 capsule by mouth 2 times daily. 60 capsule 01/11/20 24 Active ferrous sulfate 325 (65 Fe) MG tablet Take 1 tablet by mouth daily. 90 tablet 02/11/20 24 Active tolterodine 4 MG Cap SR 24HR Take 1 capsule by mouth daily. 30 capsule 02/10/20 24 Active Active Problems Problem Noted Date Diagnosed Date H/O unilateral nephrectomy 02/08/2024 Overview (02/08/2024): per pt S/P total left hip arthroplasty 01/19/2024 Gout 01/17/2024 Aneurysmal dilatation 01/17/2024 Closed fracture of hand 01/17/2024 Fracture of metacarpal bone 01/17/2024 Gastro-esophageal reflux disease without esophag itis 01/17/2024 Hypomagnesemia 01/17/2024 Lumbar spondylosis 01/17/2024 Mixed stress and urge urinary incontinence 01/16 Morbid (severe) obesity due to excess calories 0 01/17/2024 Other disorders of plasma-pr otein metabolism, not elsewhere classified 01/17/2024 Thoracic aortic ectasia 01/17/2024 Unilateral primary osteoarthritis, left hip 07/2023 Unsteadiness on feet 01/17/2024 S/P total hip arthroplasty 01/12/2024 Aneurysm of ascending aorta without rupture 11/2023 Pulmonary embolism 12/22/2023 Solitary kidney, acquired 12/22/2023 Social History Tobacco Use Types Packs/Day Years Used Date Smoking Tobacco: Never Smokeless Tobacco: Never Tobacco Cessation:Counseling Given: Not Answered Alcohol Use Standard Drinks/Week Comments Never 0 (1 standard drink = 0.6 oz pur e alcohol) [facility] Utilities Answer Date Recorded In the past 12 months has th e [employer], gas, oil, or water Teak threatened to shut off services in your home? No 01/21/2024 Overall Financial Resource Strain (CARDIA) Answe r Date Recorded How hard is it for you to pa y for the very basics like food, housing, medical care, and heating? Not very hard 01/21/2024 Hunger Vital Sign Answer Date Recorded Within the past 12 months, y ou worried that your food would run out before you got the money to buy more. Never true 01/21/20 24 Within the past 12 months, t he food you bought just didn't last and you didn't have money to get more. Never true 01/21/2024 PRAPARE - Transportation Answer Date Re corded In the past 12 months, has l ack of transportation kept you from medical appointments or from getting medications? No 0711/2023 In the past 12 months, has l ack of transportation kept you from meetings, work, or from getting things needed for daily living? No 01/21/2024 Housing Stability Vital Sign Answer Keith e Recorded In the last 12 months, was t here a time when you were not able to pay the mortgage or rent on time? No 01/21/2024 In the last 12 months, how many places have you lived? 1 01/21/2024 In the last 12 months, was t here a time when you did not have a steady place to sleep or slept in a prison (including now)? No 01/21/2024 Comments No Sex and Gender Information Value Date Recorded Sex Assigned at Not on file Legal Sex Female 10:53 AM EDT Gender Identity Not on file Sexual Orientation Not on file Last Filed Vital Signs Vital Sign Reading Time Taken Comments Blood Pressure 109/57 02/11/2024 7:32 AM EDT Pulse 85 02/11/2024 7:32 AM EDT Temperature 36.8 C (98.3 F) 03/16/2024 3:27 PM EDT Respiratory Rate 18 02/11/2024 7:32 AM EDT Oxygen Saturation 94% 02/11/2024 7:32 AM EDT Inhaled Oxygen Concentration - - Weight 105.2 kg (232 lb) 03/16/2024 3:27 PM EDT Height 162.6 cm (5' 4 ) 03/16/2024 3:27 PM EDT Body Mass Index 39.82 03/16/2024 3:27 PM EDT Plan of Treatment Health Maintenance Due Date Last Done Comments DEXA SCAN DISCUSSION 1942 CERVICAL CANCER SCREENING DISCUSSION 10/11/1963 HEP B VACCINE (2 of 3 - 19+ 3-dose series) 08/23/1985 07/26/1985 COLORECTAL CANCER SCREENING DISCUSSION 10/11/1987 ZOSTER (SHINGLES) VACCINE (2 of 3) 10/10/20052005 PNEUMOCOCCAL VACCINE SERIES (2 of 2 - PPSV23) 10/17/2008 10/18/2007 RSV VACCINE (1 - 1-dose 75+ series) 2017 MAMMOGRAM SCREENING DISCUSSION 04/09/2018 04/09/2017 COVID-19 VACCINE ( season) 2024 INFLUENZA VACCINE (#1) 2025 , 04/24/2020, 04/23/2014 TETANUS 02/14/2026 02/15/2016, 01/18/2016 TDAP (ADULT) Completed 02/15/2016, 01/18/2016 Medical Devices Implanted Type Area Phytopathology Teacher Device Identifier Shelf Expiration Date Model / Serial / Lot [place] Gription Acetabular Shell Sector 52mm Od Implanted:Qty: 1 on 01/11/2024 by Erik Bustamante MD at [facility] Left: Hip [employer] 10/16/2033 1217-32-052 / / [id number] Trochanteric Reattachment Device W/Cables/Standard -Ster Implanted:Qty: 1 on 01/11/2024 by Erik Bustamante MD at [facility] Left: Hip [employer] 08/18/2028 [id number] / / [id number] [place] Altrx Polyethylene Acetabular Liner Neutral 36mm Id 52mm Od Implanted:Qty: 1 on 01/11/2024 by Erik Bustamante MD at [facility] Left: Hip [employer] 10/16/2028 [id number] / / [id number] Cementralizer Stem Centralizer 10.5mm Cemented Implanted:Qty: 1 on 01/11/2024 by Erik Bustamante MD at [facility] Left: Hip [employer] 03/18/2027 [id number] / / [id number] [place] Femoral Stem 07/01 Taper Cemented Size 5 Std 120mm Implanted:Qty: 1 on 01/11/2024 by Erik Bustamante MD at [facility] Left: Hip [employer] 04/17/2028 [id number] / / [id number] [place] Lv 1x40 Implanted:Qty: 1 on 01/11/2024 by Erik Bustamante MD at [facility] Left: Hip 09/16/2027 [id number] / / [id number] [place] Lv 1x40 Implanted:Qty: 1 on 01/11/2024 by Erik Bustamante MD at [facility] Left: Hip 11/15/2026 [id number] / / [id number] Fan R 1x40 Implanted:Qty: 1 on 01/11/2024 by Erik Bustamante MD at [facility] Left: Hip 10/17/2027 [id number] / / [id number] [employer] Delta Ceramic Femoral Head +1.5 36mm [place] 12/14 Taper Implanted:Qty: 1 on 01/11/2024 by Erik Bustamante MD at [facility] Left: Hip [employer] 10/16/2028 [id number] / / [id number] Suture [place], Biocomposite Corkscrew Ft,Vented With 1.3mm White/Blue And White/Black Suture Tape Implanted:Qty: 1 on 01/11/2024 by Erik Bustamante MD at [facility] Left: Hip [employer] 03/18/2025 [id number] / / [id number] Insurance MEDICARE [employer] PPO Advance Directives For more information, please contact: [phone] (7:30 AM - 6PM [facility], Wednesday-Wednesday) * Full Code (Latest Code Status on File) Date Activated Date Inactivated Comments 01/19/2024 5:10 PM * Full Code Date Activated Date Inactivated Comments 01/11/2024 5:47 PM 01/19/2024 5:10 PM Care Teams Professional Bondsman Relationship Specialty Start Date End Date Tian Kuhn DO PCP - General Family Medicine 12/03/23
--- OUTSIDE RECORDS SUMMARY | 2025-02-16 09:09 | XMS_ITS | Clinical Summary ---
Author Organization [employer] [facility] Address [id number] [address] [place] [address] Care Team Providers Care Sales Engineer Account Manager Name Role Phone Tian Kuhn Primary Care Provider Allergies Active Allergy Reactions Criticality Noted Date Comments Morphine Vomiting 05/03/2017 Oxycodone Vomiting 05/03/2017 Social History Tobacco Use Types Packs/Day Years Used Date Smoking Tobacco: Never Assessed Childcare Answer Date Recorded Childcare Unknown 12/28/2018 Employment Answer Date Recorded Employment Unknown 12/28/2018 Purpose - Life Answer Date Recorded Purpose and direction in life Unknown Comments Unknown Sex and Gender Information Value Date Recorded Sex Assigned at Not on file Legal Sex Female 11:24 AM EDT Gender Identity Not on file Sexual Orientation Not on file Plan of Treatment Health Maintenance Due Date Last Done Comments Depression Screening 1952 Tobacco Screening 1952 Zoster (Shingles) Vaccine (2 of 3) 10/10/20052005 Fall Risk Screening 10/11/2007 Influenza Vaccine 03/19/2025 02/12/2021, , 04/23/2014 DTaP,Tdap and Td Vaccines (3 - Td or Tdap) 02/14/2026 02/15/2016, 01/18/2016 Medical Devices Not on file Insurance [employer] MEDICARE Care Teams Sales Engineer Account Manager Relationship Specialty Start Date End Date Tian Kuhn DO [address] [place] [address] PCP - General Family Medicine 09/18/23
[2025-02-16 10:38] LABS: Alanine Aminotransferase 14 U/L (14-59); Albumin Globulin Ratio 0.8; Albumin Level 3.3 g/dL (3.4-5.0); Alkaline Phosphatase 115 U/L (46-116); Anion Gap 11.0; Aspartate Amino Transferase 20 U/L (15-37); Blood Urea Nitrogen 21.0 mg/dL (7.0-18.0); Calcium 9.5 mg/dL (8.5-10.1); Carbon Dioxide 31.3 mmol/L (21.0-32.0); Chloride 104 mmol/L (98-107); Estimated GFR (African America >60 (>=60 mL/min/1.73m^2); Estimated GFR (Non-African Ame >60 (>=60 mL/min/1.73m^2); Free T3 2.54 pg/mL (2.18-3.98); Globulin 4.4 g/dL; Glucose 92 mg/dL (74-106); Magnesium 1.8 mg/dL (1.8-2.4); Potassium 4.3 mmol/L (3.5-5.1); Sodium 142 mmol/L (136-145); Thyroid Stimulating Hormone 1.973 uIU/mL (0.358-3.740); Total Protein 7.7 g/dL (6.4-8.2); Uric Acid 4.9 mg/dL (2.6-6.0)
[2025-02-16 10:58] LABS: Hematocrit 41.3 % (36.0-48.0); Hemoglobin 13.1 g/dL (12.0-16.0); Immature Granulocytes Abs Auto 0.01 10^3/uL (0.00-0.03); Immature Granulocytes Pct Auto 0.2 % (0.0-0.5); Lymphocytes Absolute Auto 1.6 10^3/uL (1.2-3.8); Mean Corpuscular HGB Conc 31.7 g/dL (29.9-35.2); Mean Corpuscular Hemoglobin 31.4 pg (26.7-34.0); Mean Corpuscular Volume 99.0 fL (81.0-99.0); Platelet Count 205 10^3/uL (150-450); Red Blood Count 4.17 10^6/uL (4.20-5.40); White Blood Count 4.3 10^3/uL (4.0-11.0)
[2025-02-16 11:22] LABS: Iron 82.0 ug/dL (50.0-170.0); Percent Iron Saturation 25.9 %; Total Iron Binding Capacity 317.0 ug/dL (250.0-450.0)
[2025-02-16 11:44] LABS: Ferritin 97.0 ng/mL (8.0-252.0); Folate 26.60 ng/mL (8.60-58.90)
[2025-02-17 04:07] LABS: Vitamin B12 1815 pg/mL (232-1245)
== END 2025-02-16 09:06 | disposition home or self-care (01) ==
LOC: LAB 09:07
PROVIDERS: PCP Family Medicine; Visit Provider Family Medicine
DX: E83.42 Hypomagnesemia (principal); M10.9 Gout, unspecified; D50.9 Iron deficiency anemia, unspecified; E78.5 Hyperlipidemia, unspecified; I71.21 Aneurysm of the ascending aorta, without rupture; R53.82 Chronic fatigue, unspecified; E55.9 Vitamin D deficiency, unspecified
CPT/HCPCS: 36415; 80053; 80061; 82306; 82607; 82728; 82746; 83540; 83550; 83735; 84439; 84443; 84481; 84550; 85025

== ENCOUNTER 2025-04-20 12:18 | Outpatient (OUT) | payer MEDICARE, SELFPAY ==
--- OUTSIDE RECORDS SUMMARY | 2025-04-20 12:28 | XMS_ITS | CCD ---
Author Organization [facility] Care Team Providers Care Mobile Heavy Equipment Operator Name Role Phone DR TIAN KUHN Primary Care Unavailable CUAUHTEMOC ., SELINA Attending Unavailable CUAUHTEMOC ., SELINA Admitting Unavailable WEST, DR KIMBER Lopez Consulting Unavailable ZIEBER, DR EYAD Hines Consulting Unavailable HAY ., DR STERN Consulting Unavailable KATKOSINDY Consulting Unavailable CUAUHTEMOC ., SELINA Consulting Unavailable KUHN, DR TIAN Krause Primary Care Unavailable KUHNTIAN Referring Unavailable TIAN KUHN Primary Care Unavailable KUHNTIAN WELCH Referring Unavailable KUHNTIAN Primary Care Unavailable KUHNTIAN Referring Unavailable KUHNTIAN Primary Care Unavailable JR. BOO GEORGE C Attending Unavaila meagan BOO JR., TRUMAN Salgado Referring Unavaila meagan Boo Jr., DO, George Primary Care Provider Rajeev Arriaga DO, George Primary Care Provider Tian Kuhn DO Primary Care Provider [phone] Ukhn Tian CIFUENTES Primary Care Provider [phone] REBECCA, MOHAN Admitting Unavailable REBECCAROBERTAN Attending Unavailable [...] KUHN TIAN Primary Care Unavailable PAIGE DAMON Referring Unavailable PAIGE DAMON Attending Unavailable KUHNTIAN Primary Care Unavailable SELF, SELF Referring Unavailable PAIGE DAMON Attending Unavailable KUHN TIAN Primary Care Unavailable BROCWELL, PAIGE M Attending Unavailable MARISOL PAIGE M Referring Unavailable KUHN, TIAN Primary Care Unavailable PAIGE DAMON M Attending Unavailable MARISOL, PAIGE M Referring Unavailable KUHN, TIAN Primary Care Unavailable ABHI BALTAZAR Attending Unavailable YAN, ERIK Referring Unavailable KUHN, TIAN Primary Care Unavailable TRUMAN BOO JR. Primary Care Unavailable YAN, ERIK Referring Unavailable YAN, ERIK Attending Unavailable BAM, TIAN Primary Care Unavailable YAN, ERIK Referring Unavailable YAN, ERIK Attending Unavailable ERIK HEREDIA Admitting Unavailable Tony Casas DO Attending Provider Unavailab ERIK Hutton Primary Care Physician Unavail able Tony Casas Attending Unavailable Tony Casas Admitting Unavailable Tian Kuhn MD Unavailable [phone] Cyn Garza Attending Unavailable LueCyn Attending Unavailable LueCyn Attending Unavailable LueCyn Attending Unavailable RowenaeCyn Attending Unavailable LueCyn Attending Unavailable LueCyn Attending Unavailable RowenaeCyn Referring Unavailable Allergies Allergy Classification Reported Allergen(s) Allergy Type Date of Onset Reaction(s) Facility (4 sources) Morphine; 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: [MORPHINE] Drug Allergy 7 [facility] Repository (13 sources) oxyCODONE; 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: [OXYCODONE] Drug Allergy 7 Nausea and Vomiting, GI intolerance [facility] Repository (13 sources) Morphine; 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: [morphine] Drug Allergy 7 Nausea and Vomiting, Vomiting (disorder), GI intolerance [facility] (12 sources) Penicillins Propensity to adverse reactions to drug 4 [facility] (1 source) HYDROcodone Drug Allergy 4 [...] day(s), # 30 tab(s), Refills(s) 11, Pharmacy: [facility]/pharmacy #[id number], 158, cm, 07/28/24 10:01:00 EST, Height/Length [...] Corticosteroid Start: 02-09-2024 End: 02-11-2024 bifidobacterium animalis [id number] unt / lactobacillus acidophilus [id number] unt oral capsule (2 sources) Start: 01-22-2024 [...] docusate sodium 50 mg / alberta osides, longterm 8.6 mg oral tablet (5 sources) Start: [...] 01/19/2024 Discontinued (Stop Taking at Discharge) nystatin [id number] unt/ml topic al cream (8 sources) Polyene [...] Start: 01-12-2024 End: 02-11-2024 polyethylene glycol 3350 14212 mg powder for oral solution (6 sources) [...] 01-11-2024 Chronic Other aftercare (1 source) 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; 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: [OTH CORRECTION CURRENT DRUG THERAPY] Onset: 11-19-2022 Episodic Other aftercare (1 source) nursing home (current) use of non-steroidal anti-inflammatories (NSAID); 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: [CORRECTION USE NSAID] Onset: 11-19-2022 Episodic Other aftercare (1 source) Long-term current use of anticoagulant; 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: [nursing home (current) use of anticoagulants] Onset: 07-28-2024 Episodic [...] EXPOS COVID-19] Onset: 11-19-2022 Unclassified (1 source) Pain in other specified joint; 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: [Pain in other specified joint] Onset: 01-11-2024 Unclassified (1 source) Drug therapy finding 07-28-2024 Unclassified (1 source) Obstructive hydronephrosis 07-28-2024 Past or Other Problems Problem Classification Problem Date Documented Da te Episodic/Chronic Diabetes mellitus without complication (3 sources) Prediabetes; 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: [Other abnormal glucose] Onset: 09-18-2023 Episodic Unclassified (1 source) Onset: 01-19-2024 01-19-2024 Unclassified (1 source) Pain in other specified joint; 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: [Pain in other specified joint] Onset: 01-11-2024 Results Test Name Value Interpretation Reference Range Facility 36on 03-28-2025 36 I reviewed patient echo performed 02/17/2024. It was ordered by our nurse when the patient called requesting to repeat an annual echo to follow-up on ascending aortic aneurysm. As echo showed new mild reduction in left ventricular systolic function was new wall motion abnormalities not noted on prior echoes. The patient will be called to be scheduled for soon follow-up appointment to be evaluated Normal [facility] Results Follow-Upon 03-01-20 Results Follow-Up [id number] Cuate Goodman 1940 F Date Provider Department Center 03/01/2025 CEFERINO TOSCANO [facility] CARD [facility] Family History Problem Relation Age of Onset Lung cancer Mother Heart disease Father Other Father Prostate cancer Father Family Status - Relation Status Age at Mother Father Normal [facility] Orders Onlyon 02-19-2025 Orders Only [id number] Cuate Goodman 1940 F Date Provider Department Center 02/19/2025 [id number], HISTORICAL CARD [facility] Family History Problem Relation Age of Onset Lung cancer Mother Heart disease Father Other Father Prostate cancer Father Family Status - Relation Status Age at Mother Father Normal [facility] Orders Onlyon 02-16-2025 Orders Only [id number] Cuate Goodman 1940 F Date Provider Department Center 02/16/2025 [id number], HISTORICAL CARD [facility] Family History Problem Relation Age of Onset Lung cancer Mother Heart disease Father Other Father Prostate cancer Father Family Status - Relation Status Age at Mother Father Normal [facility] ALL CBC WITH AUTO DIFFon BASOPHILS ABSOLUTE AUTO 0 [facility] Basophils/100 WBC (Bld) 0.6 % 0.2 - 2.0 % [facility] Eosinophils/100 WBC (Bld) 0.8 % Low 0.9 - 7.0 % [facility] Erythrocyte distribution width (RBC) [Ratio] 14 % 11.0 - 15.0 % [facility] Hematocrit (Bld) [Volume fraction] 38.3 % 36.0 - 48.0 % [facility] Hemoglobin (Bld) [Mass/Vol] 12.1 g/dL 12.0 - 16.0 g/dL [facility] IMMATURE GRANULOCYTES ABS AUTO 0.02 [facility] Immature granulocytes/100 WBC (Bld) 0.3 % 0.0 - 0.5 % [facility] Interpretation and review of laboratory results Abnormal [facility] LYMPHOCYTES ABSOLUTE AUTO 1.5 [facility] Lymphocytes/100 WBC (Bld) 23 % 20.5 - 60.0 % [facility] MCH (RBC) [Entitic mass] 30.9 pg 26.7 - 34.0 pg [facility] MCHC (RBC) [Mass/Vol] 31.6 g/dL 29.9 - 35.2 g/dL [facility] MCV (RBC) [Entitic vol] 98 fL 81.0 - 99.0 fL [facility] MONOCYTES ABSOLUTE AUTO 0.6 [facility] Monocytes/100 WBC (Bld) 9.9 % 1.7 - 12.0 % [facility] NEUTROPHILS ABSOLUTE AUTO 4.2 [facility] Neutrophils/100 WBC (Bld) 65.4 % 43.0 - 75.0 % [facility] Platelet mean volume (Bld) [Entitic vol] 10 fL 9.5 - 13.5 fL [facility] EO # 0.1 [facility] PLT 226 [facility] TB RBC 3.91 Low [facility] WBC 6.4 [facility] Ambulatory Visit Summaryon 0 07-28-2024 Ambulatory Visit [...] Duration: 30 Days Refills: 11 Pickup at [facility]/pharmacy #[id number] Unchanged acetaminophen-hydrocod one (acetaminophen-hydroco done 325 mg-5 [...] physician if questions or concerns Pharmacy Information [facility]/pharmacy #[id number]: [address], [place] [phone] What When Comments Stop Taking tolterodine (tolterodine [...] these instructions at home: Medicines ??? Take ubtk-pzb-cyprobw and prescription medicines only as told by [...] keep your pee pale yellow. ? Take akjl-rtv-daphnjw or prescription medicines. ? Eat foods that [...] kidney diseas (more content not included)... Normal [facility] Urology Office/Clinic Noteon 01-10-2025 Urology Office/Clinic Note Urology Office/Clinic Note Chief Complaint 1 WEEK F/U HPI Staff 83 year old female presents for week f/u for [facility] INPT s/p cytoscopy 07/18/24 and discuss stone [...] information and history for this patient from [facility]. I have reviewed and verified the staff [...] qd. SEs discussed. Generic requested. Sent to [facility]. Can add one anticholinergic if sxs not satisfactorily controlled by beta-3 alone. -PVR in future after stent out, consider botox 3. Kidney stone (N20.0: Calculus of kidney) CT AP wo con 07/18/24 [facility] - 5.9 mm stone L renal pelvis. -Will address at time of ureteral stone above Ordered: Urnls Dip Stick Auto w/o Microscopy POC 01143 4. 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 CT AP wo con 07/18/24 [facility] - Absence of R kidney. Moderate cortical scarring along contour of L kidney. No mass lesion. -Counseled on risk of renal failure with blockage of remaining kidney. Will treat kidney stones as they appear to prevent renal failure 5. 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 Normal [facility] Comment on above: Result Comment: Elec tronically Signed By: Cyn Garza MD\.br\Date and Time Signed: 07/28/24 10:51 EST\.br\Electronically Co-Signed By: Deisi Rowell\.br\Date and Time Co-Signed: 07/28/24 10:35 EST Urine Cultureon 07-18-2024 Bacteria identified Cx Nom (U) >100,000 colonies/ml mixed bacterial skin contaminants 2 Days PERFORMED BY: [place] [address] PATHOLOGIST INTELLIGENCE APPLICATIONS MERLE TAO M.D. Normal [facility] Comment on above: Performed By: #### C UU #### [address] BMP FASTINGon 02-11-2024 Anion gap [Moles/Vol] 3 mmol/L Low 8-16 [facility] Calcium [Mass/Vol] 9.1 mg/dL Normal 8.4-10.2 [facility] Chloride [Moles/Vol] 104 mmol/L Normal 98-107 [facility] Comment on above: Result Comment: Plebowen matthews note: Triglyceride levels of 600mg/dL or higher may positively bias chloride results by approximately 2.1 mmol CO2 [Moles/Vol] 28 mmol/L Normal 22-30 [facility] Creatinine [Mass/Vol] 0.80 mg/dL Normal 0.7-1.2 [facility] EST. GFR, 89 ml/min/1.73sq.m Normal [facility] EST. GFR,Non 73 ml/min/1.73sq.m Normal [facility] GFR Information Average GFR for 70+ years old = 75. 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 Kidney failure, GFR = <15. The GFR estimate is not adjusted for extreme body surface area or acute process, nor has it been validated for women or ethnic groups other than and . Glucose [Mass/Vol] 98 mg/dL Normal 70-100 [facility] Comment on above: Result Comment: NORMAL <100 mg/dL PREDIABETES 101-126 mg/dL DIABETES 126 mg/dL or higher Potassium [Moles/Vol] 4.5 mmol/L Normal 3.5-5.1 [facility] Sodium [Moles/Vol] 135 mmol/L Low 137-145 [facility] Urea nitrogen [Mass/Vol] 16 mg/dL Normal 7-20 [facility] C REACTIVE PROTEINon 024 CRP [Mass/Vol] 22.8 mg/L High 0-10 [facility] CBCon 02-11-2024 ABSOLUTE BAS 0.0 10*3/uL Normal 0.0-0.2 [facility] ABSOLUTE EOS 0.2 10*3/uL Normal 0.0-0.7 [facility] ABSOLUTE NEUTROPHIL COUNT 2.8 10*3/uL Normal 1.4-6.5 [facility] Basophils/100 WBC (Bld) 1.0 % Normal 0.0-2.0 [facility] DTYPE AUTO DIFF Normal [facility] Eosinophils/100 WBC (Bld) 4.1 % Normal 0.0-11.0 [facility] Lymphocytes (Bld) [#/Vol] 1.3 10*3/uL Normal 1.2-3.4 [facility] Lymphocytes/100 WBC (Bld) 25.8 % Normal 20.0-55.0 [facility] Monocytes (Bld) [#/Vol] 0.7 10*3/uL Normal 0.0-0.7 [facility] Monocytes/100 WBC (Bld) 13.4 % High 0.0-10.0 [facility] Neutrophils/100 WBC (Bld) 55.7 % Normal 37.0-75.0 [facility] Erythrocyte distribution width (RBC) [Ratio] 15.2 % High 11.5-14.5 [facility] Hematocrit (Bld) [Volume fraction] 31.9 % Low 36.0-48.0 [facility] Hemoglobin (Bld) [Mass/Vol] 10.7 g/dL Low 12.0-16.0 [facility] MCH (RBC) [Entitic mass] 32.2 pg Normal 26.0-35.0 [facility] MCHC (RBC) [Mass/Vol] 33.6 g/dL Normal 27.0-37.0 [facility] MCV (RBC) [Entitic vol] 96.1 fL Normal 80.0-100.0 [facility] Platelet mean volume (Bld) [Entitic vol] 7.2 fL Low 7.4-11.0 [facility] Platelets (Bld) [#/Vol] 368 10*3/uL Normal 130-400 [facility] RBC (Bld) [#/Vol] 3.32 10*6/uL Low 4.0-5.4 [facility] WBC (Bld) [#/Vol] 5.0 10*3/uL Normal 3.6-11.0 [facility] Laboratory - Chemistry and C hemistry - challengeon 02-11-2024 Anion gap [Moles/Vol] 3 mmol/L Low [facility] Calcium [Mass/Vol] 9.1 mg/dL [facility] Chloride [Moles/Vol] 104 mmol/L [facility] CO2 [Moles/Vol] 28 mmol/L [facility] Creatinine [Mass/Vol] 0.80 mg/dL [facility] CRP [Mass/Vol] 22.8 mg/L High 0 - 10 MG/L [facility] GFR/1.73 sq M.predicted among blacks MDRD (S/P/Bld) [Vol rate/Area] 89 mL/min/{1.73_m2} ml/min/1.73sq .m [facility] GFR/1.73 sq M.predicted among non-blacks MDRD (S/P/Bld) [Vol rate/Area] 73 mL/min/{1.73_m2} ml/min/1.73sq .m [facility] Glucose post fast [Mass/Vol] 98 mg/dL [facility] Potassium [Moles/Vol] 4.5 mmol/L [facility] Sodium [Moles/Vol] 135 mmol/L Low [facility] Urea nitrogen [Mass/Vol] 16 mg/dL [facility] Laboratory - Hematology and Cell countson 02-11-2024 Basophils/100 WBC (Bld) 1.0 % 0.0 - 2.0 % [facility] Differential cell count method Nom (Bld) AUTO DIFF % [facility] Eosinophils (Bld) [#/Vol] 0.2 10*3/uL 0.0 - 0.7 10*3/uL [facility] Eosinophils/100 WBC (Bld) 4.1 % 0.0 - 11.0 % [facility] Erythrocyte distribution width (RBC) [Ratio] 15.2 % High 11.5 - 14.5 % [facility] Hematocrit (Bld) [Volume fraction] 31.9 % Low 36.0 - 48.0 % [facility] Hemoglobin (Bld) [Mass/Vol] 10.7 g/dL Low [facility] Lymphocytes (Bld) [#/Vol] 1.3 10*3/uL 1.2 - 3.4 10*3/uL [facility] Lymphocytes/100 WBC (Bld) 25.8 % 20.0 - 55.0 % [facility] MCH (RBC) [Entitic mass] 32.2 pg 26.0 - 35.[address] [facility] MCHC (RBC) [Mass/Vol] 33.6 g/dL [facility] MCV (RBC) [Entitic vol] [address] [facility] Monocytes (Bld) [#/Vol] 0.7 10*3/uL 0.0 - 0.7 10*3/uL [facility] Monocytes/100 WBC (Bld) 13.4 % High 0.0 - 10.0 % [facility] Neutrophils (Bld) [#/Vol] 2.8 10*3/uL 1.4 - 6.5 10*3/uL [facility] Neutrophils/100 WBC (Bld) 55.7 % 37.0 - 75.0 % [facility] Platelet mean volume (Bld) [Entitic vol] 7.2 fL Low [facility] Platelets (Bld) [#/Vol] 368 10*3/uL 130 - 400 10*3/uL [facility] RBC (Bld) [#/Vol] 3.32 10*6/uL Low 4.0 - 5.4 10*6/uL [facility] WBC (Bld) [#/Vol] 5.0 10*3/uL 3.6 - 11.0 10*3/uL [facility] No Panel Informationon 02-10 GFR COMMENT Average GFR for 70+ years old = 75. [facility] Interpretation and review of laboratory results Abnormal [facility] ABSOLUTE BASOPHIL COUNT 0.0 10*3/uL 0.0 - 0.2 10*3/uL [facility] Interpretation and review of laboratory results Abnormal [facility] BMP FASTINGon 02-10-2024 Anion gap [Moles/Vol] 1 mmol/L Low 8-16 [facility] Calcium [Mass/Vol] 8.8 mg/dL Normal 8.4-10.2 [facility] Chloride [Moles/Vol] 105 mmol/L Normal 98-107 [facility] Comment on above: Result Comment: Shonda matthews note: Triglyceride levels of 600mg/dL or higher may positively bias chloride results by approximately 2.1 mmol CO2 [Moles/Vol] 29 mmol/L Normal 22-30 [facility] Creatinine [Mass/Vol] 0.80 mg/dL Normal 0.7-1.2 [facility] EST. GFR, 89 ml/min/1.73sq.m Normal [facility] EST. GFR,Non 73 ml/min/1.73sq.m Normal [facility] GFR Information Average GFR for 70+ years old = 75. 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 Kidney failure, GFR = <15. The GFR estimate is not adjusted for extreme body surface area or acute process, nor has it been validated for women or ethnic groups other than and . Glucose [Mass/Vol] 97 mg/dL Normal 70-100 [facility] Comment on above: Result Comment: NORMAL <100 mg/dL PREDIABETES 101-126 mg/dL DIABETES 126 mg/dL or higher Potassium [Moles/Vol] 4.3 mmol/L Normal 3.5-5.1 [facility] Sodium [Moles/Vol] 135 mmol/L Low 137-145 [facility] Urea nitrogen [Mass/Vol] 19 mg/dL Normal 7-20 [facility] C REACTIVE PROTEINon 024 CRP [Mass/Vol] 18.6 mg/L High 0-10 [facility] CBCon 02-10-2024 ABSOLUTE BAS 0.0 10*3/uL Normal 0.0-0.2 [facility] ABSOLUTE EOS 0.2 10*3/uL Normal 0.0-0.7 [facility] ABSOLUTE NEUTROPHIL COUNT 3.8 10*3/uL Normal 1.4-6.5 [facility] Basophils/100 WBC (Bld) 0.6 % Normal 0.0-2.0 [facility] DTYPE AUTO DIFF Normal [facility] Eosinophils/100 WBC (Bld) 3.1 % Normal 0.0-11.0 [facility] Lymphocytes (Bld) [#/Vol] 1.6 10*3/uL Normal 1.2-3.4 [facility] Lymphocytes/100 WBC (Bld) 24.9 % Normal 20.0-55.0 [facility] Monocytes (Bld) [#/Vol] 0.7 10*3/uL Normal 0.0-0.7 [facility] Monocytes/100 WBC (Bld) 11.0 % High 0.0-10.0 [facility] Neutrophils/100 WBC (Bld) 60.4 % Normal 37.0-75.0 [facility] Erythrocyte distribution width (RBC) [Ratio] 15.2 % High 11.5-14.5 [facility] Hematocrit (Bld) [Volume fraction] 31.7 % Low 36.0-48.0 [facility] Hemoglobin (Bld) [Mass/Vol] 10.7 g/dL Low 12.0-16.0 [facility] MCH (RBC) [Entitic mass] 32.1 pg Normal 26.0-35.0 [facility] MCHC (RBC) [Mass/Vol] 33.6 g/dL Normal 27.0-37.0 [facility] MCV (RBC) [Entitic vol] 95.6 fL Normal 80.0-100.0 [facility] Platelet mean volume (Bld) [Entitic vol] 7.2 fL Low 7.4-11.0 [facility] Platelets (Bld) [#/Vol] 369 10*3/uL Normal 130-400 [facility] RBC (Bld) [#/Vol] 3.32 10*6/uL Low 4.0-5.4 [facility] WBC (Bld) [#/Vol] 6.3 10*3/uL Normal 3.6-11.0 [facility] Laboratory - Chemistry and C hemistry - challengeon 02-10-2024 Anion gap [Moles/Vol] 1 mmol/L Low [facility] Calcium [Mass/Vol] 8.8 mg/dL [facility] Chloride [Moles/Vol] 105 mmol/L [facility] CO2 [Moles/Vol] 29 mmol/L [facility] Creatinine [Mass/Vol] 0.80 mg/dL [facility] CRP [Mass/Vol] 18.6 mg/L High 0 - 10 MG/L [facility] GFR/1.73 sq M.predicted among blacks MDRD (S/P/Bld) [Vol rate/Area] 89 mL/min/{1.73_m2} ml/min/1.73sq .m [facility] GFR/1.73 sq M.predicted among non-blacks MDRD (S/P/Bld) [Vol rate/Area] 73 mL/min/{1.73_m2} ml/min/1.73sq .m [facility] Glucose post fast [Mass/Vol] 97 mg/dL [facility] Potassium [Moles/Vol] 4.3 mmol/L [facility] Sodium [Moles/Vol] 135 mmol/L Low [facility] Urea nitrogen [Mass/Vol] 19 mg/dL [facility] Laboratory - Hematology and Cell countson 02-10-2024 Basophils/100 WBC (Bld) 0.6 % 0.0 - 2.0 % [facility] Differential cell count method Nom (Bld) AUTO DIFF % [facility] Eosinophils (Bld) [#/Vol] 0.2 10*3/uL 0.0 - 0.7 10*3/uL [facility] Eosinophils/100 WBC (Bld) 3.1 % 0.0 - 11.0 % [facility] Erythrocyte distribution width (RBC) [Ratio] 15.2 % High 11.5 - 14.5 % [facility] Hematocrit (Bld) [Volume fraction] 31.7 % Low 36.0 - 48.0 % [facility] Hemoglobin (Bld) [Mass/Vol] 10.7 g/dL Low [facility] Lymphocytes (Bld) [#/Vol] 1.6 10*3/uL 1.2 - 3.4 10*3/uL [facility] Lymphocytes/100 WBC (Bld) 24.9 % 20.0 - 55.0 % [facility] MCH (RBC) [Entitic mass] 32.1 pg 26.0 - 35.[address] [facility] MCHC (RBC) [Mass/Vol] 33.6 g/dL [facility] MCV (RBC) [Entitic vol] 95.[address] [facility] Monocytes (Bld) [#/Vol] 0.7 10*3/uL 0.0 - 0.7 10*3/uL [facility] Monocytes/100 WBC (Bld) 11.0 % High 0.0 - 10.0 % [facility] Neutrophils (Bld) [#/Vol] 3.8 10*3/uL 1.4 - 6.5 10*3/uL [facility] Neutrophils/100 WBC (Bld) 60.4 % 37.0 - 75.0 % [facility] Platelet mean volume (Bld) [Entitic vol] 7.2 fL Low [facility] Platelets (Bld) [#/Vol] 369 10*3/uL 130 - 400 10*3/uL [facility] RBC (Bld) [#/Vol] 3.32 10*6/uL Low 4.0 - 5.4 10*6/uL [facility] WBC (Bld) [#/Vol] 6.3 10*3/uL 3.6 - 11.0 10*3/uL [facility] No Panel Informationon 02-09 GFR COMMENT Average GFR for 70+ years old = 75. [facility] Interpretation and review of laboratory results Abnormal [facility] ABSOLUTE BASOPHIL COUNT 0.0 10*3/uL 0.0 - 0.2 10*3/uL [facility] Interpretation and review of laboratory results Abnormal [facility] BMP FASTINGon 02-09-2024 Anion gap [Moles/Vol] 3 mmol/L Low 8-16 [facility] Calcium [Mass/Vol] 9.1 mg/dL Normal 8.4-10.2 [facility] Chloride [Moles/Vol] 104 mmol/L Normal 98-107 [facility] Comment on above: Result Comment: Shonda matthews note: Triglyceride levels of 600mg/dL or higher may positively bias chloride results by approximately 2.1 mmol CO2 [Moles/Vol] 28 mmol/L Normal 22-30 [facility] Creatinine [Mass/Vol] 0.90 mg/dL Normal 0.7-1.2 [facility] EST. GFR, 77 ml/min/1.73sq.m [facility] EST. GFR,Non 64 ml/min/1.73sq.m [facility] GFR Information Average GFR for 70+ years old = 75. 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 Kidney failure, GFR = <15. The GFR estimate is not adjusted for extreme body surface area or acute process, nor has it been validated for women or ethnic groups other than and . Glucose [Mass/Vol] 103 mg/dL High 70-100 [facility] Comment on above: Result Comment: NORMAL <100 mg/dL PREDIABETES 101-126 mg/dL DIABETES 126 mg/dL or higher Potassium [Moles/Vol] 4.5 mmol/L Normal 3.5-5.1 [facility] Sodium [Moles/Vol] 135 mmol/L Low 137-145 [facility] Urea nitrogen [Mass/Vol] 20 mg/dL Normal 7-20 [facility] C REACTIVE PROTEINon 024 CRP [Mass/Vol] 21.2 mg/L High 0-10 [facility] CBCon 02-09-2024 ABSOLUTE BAS 0.1 10*3/uL Normal 0.0-0.2 [facility] ABSOLUTE EOS 0.2 10*3/uL Normal 0.0-0.7 [facility] ABSOLUTE NEUTROPHIL COUNT 3.7 10*3/uL Normal 1.4-6.5 [facility] Basophils/100 WBC (Bld) 0.9 % Normal 0.0-2.0 [facility] DTYPE AUTO DIFF Normal [facility] Eosinophils/100 WBC (Bld) 2.9 % Normal 0.0-11.0 [facility] Lymphocytes (Bld) [#/Vol] 1.8 10*3/uL Normal 1.2-3.4 [facility] Lymphocytes/100 WBC (Bld) 27.8 % Normal 20.0-55.0 [facility] Monocytes (Bld) [#/Vol] 0.7 10*3/uL Normal 0.0-0.7 [facility] Monocytes/100 WBC (Bld) 10.8 % High 0.0-10.0 [facility] Neutrophils/100 WBC (Bld) 57.6 % Normal 37.0-75.0 [facility] Erythrocyte distribution width (RBC) [Ratio] 15.1 % High 11.5-14.5 [facility] Hematocrit (Bld) [Volume fraction] 34.2 % Low 36.0-48.0 [facility] Hemoglobin (Bld) [Mass/Vol] 11.4 g/dL Low 12.0-16.0 [facility] MCH (RBC) [Entitic mass] 32.0 pg Normal 26.0-35.0 [facility] MCHC (RBC) [Mass/Vol] 33.4 g/dL Normal 27.0-37.0 [facility] MCV (RBC) [Entitic vol] 96.0 fL Normal 80.0-100.0 [facility] Platelet mean volume (Bld) [Entitic vol] 7.4 fL Normal 7.4-11.0 [facility] Platelets (Bld) [#/Vol] 401 10*3/uL High 130-400 [facility] RBC (Bld) [#/Vol] 3.56 10*6/uL Low 4.0-5.4 [facility] WBC (Bld) [#/Vol] 6.4 10*3/uL Normal 3.6-11.0 [facility] Laboratory - Chemistry and C hemistry - challengeon 02-09-2024 Anion gap [Moles/Vol] 3 mmol/L Low [facility] Calcium [Mass/Vol] 9.1 mg/dL [facility] Chloride [Moles/Vol] 104 mmol/L [facility] CO2 [Moles/Vol] 28 mmol/L [facility] Creatinine [Mass/Vol] 0.90 mg/dL [facility] CRP [Mass/Vol] 21.2 mg/L High 0 - 10 MG/L [facility] GFR/1.73 sq M.predicted among blacks MDRD (S/P/Bld) [Vol rate/Area] 77 mL/min/{1.73_m2} ml/min/1.73sq .m [facility] GFR/1.73 sq M.predicted among non-blacks MDRD (S/P/Bld) [Vol rate/Area] 64 mL/min/{1.73_m2} ml/min/1.73sq .m [facility] Glucose post fast [Mass/Vol] 103 mg/dL High [facility] Potassium [Moles/Vol] 4.5 mmol/L [facility] Sodium [Moles/Vol] 135 mmol/L Low [facility] Urea nitrogen [Mass/Vol] 20 mg/dL [facility] Laboratory - Hematology and Cell countson 02-09-2024 Basophils/100 WBC (Bld) 0.9 % 0.0 - 2.0 % [facility] Differential cell count method Nom (Bld) AUTO DIFF % [facility] Eosinophils (Bld) [#/Vol] 0.2 10*3/uL 0.0 - 0.7 10*3/uL [facility] Eosinophils/100 WBC (Bld) 2.9 % 0.0 - 11.0 % [facility] Erythrocyte distribution width (RBC) [Ratio] 15.1 % High 11.5 - 14.5 % [facility] Hematocrit (Bld) [Volume fraction] 34.2 % Low 36.0 - 48.0 % [facility] Hemoglobin (Bld) [Mass/Vol] 11.4 g/dL Low [facility] Lymphocytes (Bld) [#/Vol] 1.8 10*3/uL 1.2 - 3.4 10*3/uL [facility] Lymphocytes/100 WBC (Bld) 27.8 % 20.0 - 55.0 % [facility] MCH (RBC) [Entitic mass] 32.0 pg 26.0 - 35.[address] [facility] MCHC (RBC) [Mass/Vol] 33.4 g/dL [facility] MCV (RBC) [Entitic vol] [address] [facility] Monocytes (Bld) [#/Vol] 0.7 10*3/uL 0.0 - 0.7 10*3/uL [facility] Monocytes/100 WBC (Bld) 10.8 % High 0.0 - 10.0 % [facility] Neutrophils (Bld) [#/Vol] 3.7 10*3/uL 1.4 - 6.5 10*3/uL [facility] Neutrophils/100 WBC (Bld) 57.6 % 37.0 - 75.0 % [facility] Platelet mean volume (Bld) [Entitic vol] 7.[address] [facility] Platelets (Bld) [#/Vol] 401 10*3/uL High 130 - 400 10*3/uL [facility] RBC (Bld) [#/Vol] 3.56 10*6/uL Low 4.0 - 5.4 10*6/uL [facility] WBC (Bld) [#/Vol] 6.4 10*3/uL 3.6 - 11.0 10*3/uL [facility] No Panel Informationon 02-08 GFR COMMENT Average GFR for 70+ years old = 75. [facility] Interpretation and review of laboratory results Abnormal [facility] ABSOLUTE BASOPHIL COUNT 0.1 10*3/uL 0.0 - 0.2 10*3/uL [facility] Interpretation and review of laboratory results Abnormal [facility] BMP FASTINGon 02-08-2024 Anion gap [Moles/Vol] Negative Normal 8-16 [facility] Calcium [Mass/Vol] 8.9 mg/dL Normal 8.4-10.2 [facility] Chloride [Moles/Vol] 104 mmol/L Normal 98-107 [facility] Comment on above: Result Comment: Shonda matthews note: Triglyceride levels of 600mg/dL or higher may positively bias chloride results by approximately 2.1 mmol CO2 [Moles/Vol] 30 mmol/L Normal 22-30 [facility] Creatinine [Mass/Vol] 0.80 mg/dL Normal 0.7-1.2 [facility] EST. GFR, 89 ml/min/1.73sq.m [facility] EST. GFR,Non 73 ml/min/1.73sq.m Normal [facility] GFR Information Average GFR for 70+ years old = 75. 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 Kidney failure, GFR = <15. The GFR estimate is not adjusted for extreme body surface area or acute process, nor has it been validated for women or ethnic groups other than and . Glucose [Mass/Vol] 96 mg/dL Normal 70-100 [facility] Comment on above: Result Comment: NORMAL <100 mg/dL PREDIABETES 101-126 mg/dL DIABETES 126 mg/dL or higher Potassium [Moles/Vol] 4.3 mmol/L Normal 3.5-5.1 [facility] Sodium [Moles/Vol] 133 mmol/L Low 137-145 [facility] Urea nitrogen [Mass/Vol] 14 mg/dL Normal 7-20 [facility] C REACTIVE PROTEINon 02-07- 024 CRP [Mass/Vol] 22.2 mg/L High 0-10 [facility] CBCon 02-08-2024 ABSOLUTE BAS 0.1 10*3/uL Normal 0.0-0.2 [facility] ABSOLUTE EOS 0.2 10*3/uL Normal 0.0-0.7 [facility] ABSOLUTE NEUTROPHIL COUNT 3.2 10*3/uL Normal 1.4-6.5 [facility] Basophils/100 WBC (Bld) 1.0 % Normal 0.0-2.0 [facility] DTYPE AUTO DIFF Normal [facility] Eosinophils/100 WBC (Bld) 3.5 % Normal 0.0-11.0 [facility] Lymphocytes (Bld) [#/Vol] 1.5 10*3/uL Normal 1.2-3.4 [facility] Lymphocytes/100 WBC (Bld) 26.3 % Normal 20.0-55.0 [facility] Monocytes (Bld) [#/Vol] 0.6 10*3/uL Normal 0.0-0.7 [facility] Monocytes/100 WBC (Bld) 11.2 % High 0.0-10.0 [facility] Neutrophils/100 WBC (Bld) 58.0 % Normal 37.0-75.0 [facility] Erythrocyte distribution width (RBC) [Ratio] 15.3 % High 11.5-14.5 [facility] Hematocrit (Bld) [Volume fraction] 30.8 % Low 36.0-48.0 [facility] Hemoglobin (Bld) [Mass/Vol] 10.4 g/dL Low 12.0-16.0 [facility] MCH (RBC) [Entitic mass] 32.1 pg Normal 26.0-35.0 [facility] MCHC (RBC) [Mass/Vol] 33.7 g/dL Normal 27.0-37.0 [facility] MCV (RBC) [Entitic vol] 95.1 fL Normal 80.0-100.0 [facility] Platelet mean volume (Bld) [Entitic vol] 7.4 fL Normal 7.4-11.0 [facility] Platelets (Bld) [#/Vol] 368 10*3/uL Normal 130-400 [facility] RBC (Bld) [#/Vol] 3.24 10*6/uL Low 4.0-5.4 [facility] WBC (Bld) [#/Vol] 5.5 10*3/uL Normal 3.6-11.0 [facility] ESRon 02-08-2024 ESR (Bld) [Velocity] 75 mm/h High 0-30 [facility] Laboratory - Chemistry and C hemistry - challengeon 02-08-2024 Anion gap [Moles/Vol] Negative [facility] Calcium [Mass/Vol] 8.9 mg/dL [facility] Chloride [Moles/Vol] 104 mmol/L [facility] CO2 [Moles/Vol] 30 mmol/L [facility] Creatinine [Mass/Vol] 0.80 mg/dL [facility] CRP [Mass/Vol] 22.2 mg/L High 0 - 10 MG/L [facility] GFR/1.73 sq M.predicted among blacks MDRD (S/P/Bld) [Vol rate/Area] 89 mL/min/{1.73_m2} ml/min/1.73sq .m [facility] GFR/1.73 sq M.predicted among non-blacks MDRD (S/P/Bld) [Vol rate/Area] 73 mL/min/{1.73_m2} ml/min/1.73sq .m [facility] Glucose post fast [Mass/Vol] 96 mg/dL [facility] Potassium [Moles/Vol] 4.3 mmol/L [facility] Sodium [Moles/Vol] 133 mmol/L Low [facility] Urea nitrogen [Mass/Vol] 14 mg/dL [facility] Laboratory - Hematology and Cell countson 02-08-2024 ESR (Bld) [Velocity] 75 mm/h High [facility] Basophils/100 WBC (Bld) 1.0 % 0.0 - 2.0 % [facility] Differential cell count method Nom (Bld) AUTO DIFF % [facility] Eosinophils (Bld) [#/Vol] 0.2 10*3/uL 0.0 - 0.7 10*3/uL [facility] Eosinophils/100 WBC (Bld) 3.5 % 0.0 - 11.0 % [facility] Erythrocyte distribution width (RBC) [Ratio] 15.3 % High 11.5 - 14.5 % [facility] Hematocrit (Bld) [Volume fraction] 30.8 % Low 36.0 - 48.0 % [facility] Hemoglobin (Bld) [Mass/Vol] 10.4 g/dL Low [facility] Lymphocytes (Bld) [#/Vol] 1.5 10*3/uL 1.2 - 3.4 10*3/uL [facility] Lymphocytes/100 WBC (Bld) 26.3 % 20.0 - 55.0 % [facility] MCH (RBC) [Entitic mass] 32.1 pg 26.0 - 35.[address] [facility] MCHC (RBC) [Mass/Vol] 33.7 g/dL [facility] MCV (RBC) [Entitic vol] 95.[address] [facility] Monocytes (Bld) [#/Vol] 0.6 10*3/uL 0.0 - 0.7 10*3/uL [facility] Monocytes/100 WBC (Bld) 11.2 % High 0.0 - 10.0 % [facility] Neutrophils (Bld) [#/Vol] 3.2 10*3/uL 1.4 - 6.5 10*3/uL [facility] Neutrophils/100 WBC (Bld) 58.0 % 37.0 - 75.0 % [facility] Platelet mean volume (Bld) [Entitic vol] 7.[address] [facility] Platelets (Bld) [#/Vol] 368 10*3/uL 130 - 400 10*3/uL [facility] RBC (Bld) [#/Vol] 3.24 10*6/uL Low 4.0 - 5.4 10*6/uL [facility] WBC (Bld) [#/Vol] 5.5 10*3/uL 3.6 - 11.0 10*3/uL [facility] No Panel Informationon 02-07 Interpretation and review of laboratory results Abnormal [facility] GFR COMMENT Average GFR for 70+ years old = 75. [facility] Interpretation and review of laboratory results Abnormal [facility] ABSOLUTE BASOPHIL COUNT 0.1 10*3/uL 0.0 - 0.2 10*3/uL [facility] Interpretation and review of laboratory results Abnormal [facility] BMP FASTINGon 02-07-2024 Anion gap [Moles/Vol] 1 mmol/L Low 8-16 [facility] Comment on above: Performed By: #### A CBC #### Testing performed at [address] [address] Calcium [Mass/Vol] 8.8 mg/dL Normal 8.4-10.2 [facility] Comment on above: Performed By: #### A CBC #### Testing performed at [address] [address] Chloride [Moles/Vol] 105 mmol/L Normal 98-107 [facility] Comment on above: Result Comment: Shonda matthews note: Triglyceride levels of 600mg/dL or higher may positively bias chloride results by approximately 2.1 mmol Performed By: #### A CBC #### Testing performed at [address] [address] CO2 [Moles/Vol] 27 mmol/L Normal 22-30 [facility] Comment on above: Performed By: #### A CBC #### Testing performed at [address] [address] Creatinine [Mass/Vol] 0.70 mg/dL Normal 0.7-1.2 [facility] Comment on above: Performed By: #### A CBC #### Testing performed at [address] [address] EST. GFR, 103 ml/min/1.73sq.m Normal [facility] Comment on above: Performed By: #### A CBC #### Testing performed at [address] [address] EST. GFR,Non 85 ml/min/1.73sq.m Normal [facility] Comment on above: Performed By: #### A CBC #### Testing performed at [address] [address] GFR Information Average GFR for 70+ years old = 75. 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 Kidney failure, GFR = <15. The GFR estimate is not adjusted for extreme body surface area or acute process, nor has it been validated for women or ethnic groups other than and . Performed By: #### A CBC #### Testing performed at [address] [address] Glucose [Mass/Vol] 95 mg/dL Normal 70-100 [facility] Comment on above: Result Comment: NORMAL <100 mg/dL PREDIABETES 101-126 mg/dL DIABETES 126 mg/dL or higher Performed By: #### A CBC #### Testing performed at [address] [address] Potassium [Moles/Vol] 4.3 mmol/L Normal 3.5-5.1 [facility] Comment on above: Performed By: #### A CBC #### Testing performed at [address] [address] Sodium [Moles/Vol] 133 mmol/L Low 137-145 [facility] Comment on above: Performed By: #### A CBC #### Testing performed at [address] [address] Urea nitrogen [Mass/Vol] 11 mg/dL Normal 7-20 [facility] Comment on above: Performed By: #### A CBC #### Testing performed at [address] [place] [address] C REACTIVE PROTEINon 024 CRP [Mass/Vol] 19.6 mg/L High 0-10 [facility] Comment on above: Performed By: #### A CBC #### Testing performed at [address] [place] [address] CBCon 02-07-2024 ABSOLUTE BAS 0.0 10*3/uL Normal 0.0-0.2 [facility] Comment on above: Performed By: #### A CBC #### Testing performed at [address] [place] [address] ABSOLUTE EOS 0.2 10*3/uL Normal 0.0-0.7 [facility] Comment on above: Performed By: #### A CBC #### Testing performed at [address] [place] [address] ABSOLUTE NEUTROPHIL COUNT 2.8 10*3/uL Normal 1.4-6.5 [facility] Comment on above: Performed By: #### A CBC #### Testing performed at [address] [place] [address] Basophils/100 WBC (Bld) 0.9 % Normal 0.0-2.0 [facility] Comment on above: Performed By: #### A CBC #### Testing performed at [address] [place] [address] DTYPE AUTO DIFF Normal [facility] Comment on above: Performed By: #### A CBC #### Testing performed at [address] [place] [address] Eosinophils/100 WBC (Bld) 3.8 % Normal 0.0-11.0 [facility] Comment on above: Performed By: #### A CBC #### Testing performed at [address] [place] [address] Lymphocytes (Bld) [#/Vol] 1.4 10*3/uL Normal 1.2-3.4 [facility] Comment on above: Performed By: #### A CBC #### Testing performed at [address] [address] Lymphocytes/100 WBC (Bld) 28.3 % Normal 20.0-55.0 [facility] Comment on above: Performed By: #### A CBC #### Testing performed at [address] [address] Monocytes (Bld) [#/Vol] 0.6 10*3/uL Normal 0.0-0.7 [facility] Comment on above: Performed By: #### A CBC #### Testing performed at [address] [address] Monocytes/100 WBC (Bld) 12.4 % High 0.0-10.0 [facility] Comment on above: Performed By: #### A CBC #### Testing performed at [address] [address] Neutrophils/100 WBC (Bld) 54.6 % Normal 37.0-75.0 [facility] Comment on above: Performed By: #### A CBC #### Testing performed at [address] [address] Erythrocyte distribution width (RBC) [Ratio] 16.0 % High 11.5-14.5 [facility] Comment on above: Performed By: #### A CBC #### Testing performed at [address] [address] Hematocrit (Bld) [Volume fraction] 31.7 % Low 36.0-48.0 [facility] Comment on above: Performed By: #### A CBC #### Testing performed at [address] [address] Hemoglobin (Bld) [Mass/Vol] 10.5 g/dL Low 12.0-16.0 [facility] Comment on above: Performed By: #### A CBC #### Testing performed at [address] [address] MCH (RBC) [Entitic mass] 32.5 pg Normal 26.0-35.0 [facility] Comment on above: Performed By: #### A CBC #### Testing performed at [address] [address] MCHC (RBC) [Mass/Vol] 33.1 g/dL Normal 27.0-37.0 [facility] Comment on above: Performed By: #### A CBC #### Testing performed at [address] [address] MCV (RBC) [Entitic vol] 98.4 fL Normal 80.0-100.0 [facility] Comment on above: Performed By: #### A CBC #### Testing performed at [address] [address] Platelet mean volume (Bld) [Entitic vol] 7.2 fL Low 7.4-11.0 [facility] Comment on above: Performed By: #### A CBC #### Testing performed at [address] [address] Platelets (Bld) [#/Vol] 366 10*3/uL Normal 130-400 [facility] Comment on above: Performed By: #### A CBC #### Testing performed at [address] [address] RBC (Bld) [#/Vol] 3.23 10*6/uL Low 4.0-5.4 [facility] Comment on above: Performed By: #### A CBC #### Testing performed at [address] [address] WBC (Bld) [#/Vol] 5.1 10*3/uL Normal 3.6-11.0 [facility] Comment on above: Performed By: #### A CBC #### Testing performed at [address] [address] Laboratory - Chemistry and C hemistry - challengeon 02-07-2024 Anion gap [Moles/Vol] 1 mmol/L Low [facility] Calcium [Mass/Vol] 8.8 mg/dL [facility] Chloride [Moles/Vol] 105 mmol/L [facility] CO2 [Moles/Vol] 27 mmol/L [facility] Creatinine [Mass/Vol] 0.70 mg/dL [facility] CRP [Mass/Vol] 19.6 mg/L High 0 - 10 MG/L [facility] GFR/1.73 sq M.predicted among blacks MDRD (S/P/Bld) [Vol rate/Area] 103 mL/min/{1.73_m2} ml/min/1.73sq .m [facility] GFR/1.73 sq M.predicted among non-blacks MDRD (S/P/Bld) [Vol rate/Area] 85 mL/min/{1.73_m2} ml/min/1.73sq .m [facility] Glucose post fast [Mass/Vol] 95 mg/dL [facility] Potassium [Moles/Vol] 4.3 mmol/L [facility] Sodium [Moles/Vol] 133 mmol/L Low [facility] Urea nitrogen [Mass/Vol] 11 mg/dL [facility] Laboratory - Hematology and Cell countson 02-07-2024 Basophils/100 WBC (Bld) 0.9 % 0.0 - 2.0 % [facility] Differential cell count method Nom (Bld) AUTO DIFF % [facility] Eosinophils (Bld) [#/Vol] 0.2 10*3/uL 0.0 - 0.7 10*3/uL [facility] Eosinophils/100 WBC (Bld) 3.8 % 0.0 - 11.0 % [facility] Erythrocyte distribution width (RBC) [Ratio] 16.0 % High 11.5 - 14.5 % [facility] Hematocrit (Bld) [Volume fraction] 31.7 % Low 36.0 - 48.0 % [facility] Hemoglobin (Bld) [Mass/Vol] 10.5 g/dL Low [facility] Lymphocytes (Bld) [#/Vol] 1.4 10*3/uL 1.2 - 3.4 10*3/uL [facility] Lymphocytes/100 WBC (Bld) 28.3 % 20.0 - 55.0 % [facility] MCH (RBC) [Entitic mass] 32.5 pg 26.0 - 35.[address] [facility] MCHC (RBC) [Mass/Vol] 33.1 g/dL [facility] MCV (RBC) [Entitic vol] 98.[address] [facility] Monocytes (Bld) [#/Vol] 0.6 10*3/uL 0.0 - 0.7 10*3/uL [facility] Monocytes/100 WBC (Bld) 12.4 % High 0.0 - 10.0 % [facility] Neutrophils (Bld) [#/Vol] 2.8 10*3/uL 1.4 - 6.5 10*3/uL [facility] Neutrophils/100 WBC (Bld) 54.6 % 37.0 - 75.0 % [facility] Platelet mean volume (Bld) [Entitic vol] 7.2 fL Low [facility] Platelets (Bld) [#/Vol] 366 10*3/uL 130 - 400 10*3/uL [facility] RBC (Bld) [#/Vol] 3.23 10*6/uL Low 4.0 - 5.4 10*6/uL [facility] WBC (Bld) [#/Vol] 5.1 10*3/uL 3.6 - 11.0 10*3/uL [facility] No Panel Informationon 02-06 ABSOLUTE BASOPHIL COUNT 0.0 10*3/uL 0.0 - 0.2 10*3/uL [facility] Interpretation and review of laboratory results Abnormal [facility] GFR COMMENT Average GFR for 70+ years old = 75. [facility] Interpretation and review of laboratory results Abnormal [facility] BMP FASTINGon 02-06-2024 Anion gap [Moles/Vol] 2 mmol/L Low 8-16 [facility] Calcium [Mass/Vol] 8.6 mg/dL Normal 8.4-10.2 [facility] Chloride [Moles/Vol] 104 mmol/L Normal 98-107 [facility] Comment on above: Result Comment: Shonda matthews note: Triglyceride levels of 600mg/dL or higher may positively bias chloride results by approximately 2.1 mmol CO2 [Moles/Vol] 29 mmol/L Normal 22-30 [facility] Creatinine [Mass/Vol] 0.80 mg/dL Normal 0.7-1.2 [facility] EST. GFR, 89 ml/min/1.73sq.m Normal [facility] EST. GFR,Non 73 ml/min/1.73sq.m Normal [facility] GFR Information Average GFR for 70+ years old = 75. 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 Kidney failure, GFR = <15. The GFR estimate is not adjusted for extreme body surface area or acute process, nor has it been validated for women or ethnic groups other than and . Glucose [Mass/Vol] 100 mg/dL Normal 70-100 [facility] Comment on above: Result Comment: NORMAL <100 mg/dL PREDIABETES 101-126 mg/dL DIABETES 126 mg/dL or higher Potassium [Moles/Vol] 4.4 mmol/L Normal 3.5-5.1 [facility] Sodium [Moles/Vol] 135 mmol/L Low 137-145 [facility] Urea nitrogen [Mass/Vol] 17 mg/dL Normal 7-20 [facility] C REACTIVE PROTEINon 024 CRP [Mass/Vol] 22.7 mg/L High 0-10 [facility] CBCon 02-06-2024 ABSOLUTE BAS 0.0 10*3/uL Normal 0.0-0.2 [facility] ABSOLUTE EOS 0.2 10*3/uL Normal 0.0-0.7 [facility] ABSOLUTE NEUTROPHIL COUNT 3.4 10*3/uL Normal 1.4-6.5 [facility] Basophils/100 WBC (Bld) 0.8 % Normal 0.0-2.0 [facility] DTYPE AUTO DIFF Normal [facility] Eosinophils/100 WBC (Bld) 2.8 % Normal 0.0-11.0 [facility] Lymphocytes (Bld) [#/Vol] 1.5 10*3/uL Normal 1.2-3.4 [facility] Lymphocytes/100 WBC (Bld) 25.0 % Normal 20.0-55.0 [facility] Monocytes (Bld) [#/Vol] 0.8 10*3/uL High 0.0-0.7 [facility] Monocytes/100 WBC (Bld) 12.9 % High 0.0-10.0 [facility] Neutrophils/100 WBC (Bld) 58.5 % Normal 37.0-75.0 [facility] Erythrocyte distribution width (RBC) [Ratio] 15.2 % High 11.5-14.5 [facility] Hematocrit (Bld) [Volume fraction] 29.6 % Low 36.0-48.0 [facility] Hemoglobin (Bld) [Mass/Vol] 10.1 g/dL Low 12.0-16.0 [facility] MCH (RBC) [Entitic mass] 32.5 pg Normal 26.0-35.0 [facility] MCHC (RBC) [Mass/Vol] 34.0 g/dL Normal 27.0-37.0 [facility] MCV (RBC) [Entitic vol] 95.7 fL Normal 80.0-100.0 [facility] Platelet mean volume (Bld) [Entitic vol] 6.7 fL Low 7.4-11.0 [facility] Platelets (Bld) [#/Vol] 365 10*3/uL Normal 130-400 [facility] RBC (Bld) [#/Vol] 3.10 10*6/uL Low 4.0-5.4 [facility] WBC (Bld) [#/Vol] 5.8 10*3/uL Normal 3.6-11.0 [facility] Laboratory - Chemistry and C hemistry - challengeon 02-06-2024 Anion gap [Moles/Vol] 2 mmol/L Low [facility] Calcium [Mass/Vol] 8.6 mg/dL [facility] Chloride [Moles/Vol] 104 mmol/L [facility] CO2 [Moles/Vol] 29 mmol/L [facility] Creatinine [Mass/Vol] 0.80 mg/dL [facility] CRP [Mass/Vol] 22.7 mg/L High 0 - 10 MG/L [facility] GFR/1.73 sq M.predicted among blacks MDRD (S/P/Bld) [Vol rate/Area] 89 mL/min/{1.73_m2} ml/min/1.73sq .m [facility] GFR/1.73 sq M.predicted among non-blacks MDRD (S/P/Bld) [Vol rate/Area] 73 mL/min/{1.73_m2} ml/min/1.73sq .m [facility] Glucose post fast [Mass/Vol] 100 mg/dL [facility] Potassium [Moles/Vol] 4.4 mmol/L [facility] Sodium [Moles/Vol] 135 mmol/L Low [facility] Urea nitrogen [Mass/Vol] 17 mg/dL [facility] Laboratory - Hematology and Cell countson 02-06-2024 Basophils/100 WBC (Bld) 0.8 % 0.0 - 2.0 % [facility] Differential cell count method Nom (Bld) AUTO DIFF % [facility] Eosinophils (Bld) [#/Vol] 0.2 10*3/uL 0.0 - 0.7 10*3/uL [facility] Eosinophils/100 WBC (Bld) 2.8 % 0.0 - 11.0 % [facility] Erythrocyte distribution width (RBC) [Ratio] 15.2 % High 11.5 - 14.5 % [facility] Hematocrit (Bld) [Volume fraction] 29.6 % Low 36.0 - 48.0 % [facility] Hemoglobin (Bld) [Mass/Vol] 10.1 g/dL Low [facility] Lymphocytes (Bld) [#/Vol] 1.5 10*3/uL 1.2 - 3.4 10*3/uL [facility] Lymphocytes/100 WBC (Bld) 25.0 % 20.0 - 55.0 % [facility] MCH (RBC) [Entitic mass] 32.5 pg 26.0 - 35.[address] [facility] MCHC (RBC) [Mass/Vol] 34.0 g/dL [facility] MCV (RBC) [Entitic vol] 95.[address] [facility] Monocytes (Bld) [#/Vol] 0.8 10*3/uL High 0.0 - 0.7 10*3/uL [facility] Monocytes/100 WBC (Bld) 12.9 % High 0.0 - 10.0 % [facility] Neutrophils (Bld) [#/Vol] 3.4 10*3/uL 1.4 - 6.5 10*3/uL [facility] Neutrophils/100 WBC (Bld) 58.5 % 37.0 - 75.0 % [facility] Platelet mean volume (Bld) [Entitic vol] 6.7 fL Low [facility] Platelets (Bld) [#/Vol] 365 10*3/uL 130 - 400 10*3/uL [facility] RBC (Bld) [#/Vol] 3.10 10*6/uL Low 4.0 - 5.4 10*6/uL [facility] WBC (Bld) [#/Vol] 5.8 10*3/uL 3.6 - 11.0 10*3/uL [facility] No Panel Informationon 02-05 GFR COMMENT Average GFR for 70+ years old = 75. [facility] Interpretation and review of laboratory results Abnormal [facility] ABSOLUTE BASOPHIL COUNT 0.0 10*3/uL 0.0 - 0.2 10*3/uL [facility] Interpretation and review of laboratory results Abnormal [facility] BMP FASTINGon 02-05-2024 Anion gap [Moles/Vol] 1 mmol/L Low 8-16 [facility] Comment on above: Performed By: #### A CBC ####[place] [address] Calcium [Mass/Vol] 8.8 mg/dL Normal 8.4-10.2 [facility] Comment on above: Performed By: #### A CBC ####[place] [address] Chloride [Moles/Vol] 104 mmol/L Normal 98-107 [facility] Comment on above: Result Comment: Shonda matthews note: Triglyceride levels of 600mg/dL or higher may positively bias chloride results by approximately 2.1 mmol Performed By: #### A CBC ####Testing performed at [address] [address] CO2 [Moles/Vol] 30 mmol/L Normal 22-30 [facility] Comment on above: Performed By: #### A CBC ####Testing performed at [address] [address] Creatinine [Mass/Vol] 0.80 mg/dL Normal 0.7-1.2 [facility] Comment on above: Performed By: #### A CBC ####Testing performed at [address] [address] EST. GFR, 89 ml/min/1.73sq.m [facility] Comment on above: Performed By: #### A CBC ####Testing performed at [address] [address] EST. GFR,Non 73 ml/min/1.73sq.m [facility] Comment on above: Performed By: #### A CBC ####Testing performed at [address] [address] GFR Information Average GFR for 70+ years old = 75. 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 Kidney failure, GFR = <15. The GFR estimate is not adjusted for extreme body surface area or acute process, nor has it been validated for women or ethnic groups other than and . Performed By: #### A CBC ####Testing performed at [address] [address] Glucose [Mass/Vol] 101 mg/dL High 70-100 [facility] Comment on above: Result Comment: NORMAL <100 mg/dL PREDIABETES 101-126 mg/dL DIABETES 126 mg/dL or higher Performed By: #### A CBC ####Testing performed at [address] [address] Potassium [Moles/Vol] 4.3 mmol/L Normal 3.5-5.1 [facility] Comment on above: Performed By: #### A CBC ####Testing performed at [address] [address] Sodium [Moles/Vol] 135 mmol/L Low 137-145 [facility] Comment on above: Performed By: #### A CBC ####Testing performed at [address] [address] Urea nitrogen [Mass/Vol] 14 mg/dL Normal 7-20 [facility] Comment on above: Performed By: #### A CBC ####Testing performed at [address] [address] C REACTIVE PROTEINon 024 CRP [Mass/Vol] 21.0 mg/L High 0-10 [facility] Comment on above: Performed By: #### A CBC ####Testing performed at [address] [address] CBCon 02-05-2024 ABSOLUTE BAS 0.0 10*3/uL Normal 0.0-0.2 [facility] Comment on above: Performed By: #### A CBC ####Testing performed at [address] [address] ABSOLUTE EOS 0.1 10*3/uL Normal 0.0-0.7 [facility] Comment on above: Performed By: #### A CBC ####Testing performed at [address] [address] ABSOLUTE NEUTROPHIL COUNT 3.1 10*3/uL Normal 1.4-6.5 [facility] Comment on above: Performed By: #### A CBC ####Testing performed at [address] [place] [address] Basophils/100 WBC (Bld) 0.9 % Normal 0.0-2.0 [facility] Comment on above: Performed By: #### A CBC ####Testing performed at [address] [place] [address] DTYPE AUTO DIFF Normal [facility] Comment on above: Performed By: #### A CBC ####Testing performed at [address] [place] [address] Eosinophils/100 WBC (Bld) 2.6 % Normal 0.0-11.0 [facility] Comment on above: Performed By: #### A CBC ####Testing performed at [address] [place] [address] Lymphocytes (Bld) [#/Vol] 1.2 10*3/uL Normal 1.2-3.4 [facility] Comment on above: Performed By: #### A CBC ####Testing performed at [address] [place] [address] Lymphocytes/100 WBC (Bld) 23.7 % Normal 20.0-55.0 [facility] Comment on above: Performed By: #### A CBC ####Testing performed at [address] [place] [address] Monocytes (Bld) [#/Vol] 0.6 10*3/uL Normal 0.0-0.7 [facility] Comment on above: Performed By: #### A CBC ####Testing performed at [address] [place] [address] Monocytes/100 WBC (Bld) 11.8 % High 0.0-10.0 [facility] Comment on above: Performed By: #### A CBC ####Testing performed at [address] [place] [address] Neutrophils/100 WBC (Bld) 61.0 % Normal 37.0-75.0 [facility] Comment on above: Performed By: #### A CBC ####Testing performed at [address] [address] Erythrocyte distribution width (RBC) [Ratio] 15.2 % High 11.5-14.5 [facility] Comment on above: Performed By: #### A CBC ####Testing performed at [address] [address] Hematocrit (Bld) [Volume fraction] 30.8 % Low 36.0-48.0 [facility] Comment on above: Performed By: #### A CBC ####Testing performed at [address] [address] Hemoglobin (Bld) [Mass/Vol] 10.4 g/dL Low 12.0-16.0 [facility] Comment on above: Performed By: #### A CBC ####Testing performed at [address] [address] MCH (RBC) [Entitic mass] 32.3 pg Normal 26.0-35.0 [facility] Comment on above: Performed By: #### A CBC ####Testing performed at [address] [address] MCHC (RBC) [Mass/Vol] 33.7 g/dL Normal 27.0-37.0 [facility] Comment on above: Performed By: #### A CBC ####Testing performed at [address] [address] MCV (RBC) [Entitic vol] 95.8 fL Normal 80.0-100.0 [facility] Comment on above: Performed By: #### A CBC ####Testing performed at [address] [address] Platelet mean volume (Bld) [Entitic vol] 6.6 fL Low 7.4-11.0 [facility] Comment on above: Performed By: #### A CBC ####[place] [address] Platelets (Bld) [#/Vol] 378 10*3/uL Normal 130-400 [facility] Comment on above: Performed By: #### A CBC ####[place] [address] RBC (Bld) [#/Vol] 3.22 10*6/uL Low 4.0-5.4 [facility] Comment on above: Performed By: #### A CBC ####[place] [address] WBC (Bld) [#/Vol] 5.0 10*3/uL Normal 3.6-11.0 [facility] Comment on above: Performed By: #### A CBC ####[place] [address] Laboratory - Chemistry and C hemistry - challengeon 02-05-2024 Anion gap [Moles/Vol] 1 mmol/L Low [facility] Calcium [Mass/Vol] 8.8 mg/dL [facility] Chloride [Moles/Vol] 104 mmol/L [facility] CO2 [Moles/Vol] 30 mmol/L [facility] Creatinine [Mass/Vol] 0.80 mg/dL [facility] CRP [Mass/Vol] 21.0 mg/L High 0 - 10 MG/L [facility] GFR/1.73 sq M.predicted among blacks MDRD (S/P/Bld) [Vol rate/Area] 89 mL/min/{1.73_m2} ml/min/1.73sq .m [facility] GFR/1.73 sq M.predicted among non-blacks MDRD (S/P/Bld) [Vol rate/Area] 73 mL/min/{1.73_m2} ml/min/1.73sq .m [facility] Glucose post fast [Mass/Vol] 101 mg/dL High [facility] Potassium [Moles/Vol] 4.3 mmol/L [facility] Sodium [Moles/Vol] 135 mmol/L Low [facility] Urea nitrogen [Mass/Vol] 14 mg/dL [facility] Laboratory - Hematology and Cell countson 02-05-2024 Basophils/100 WBC (Bld) 0.9 % 0.0 - 2.0 % [facility] Differential cell count method Nom (Bld) AUTO DIFF % [facility] Eosinophils (Bld) [#/Vol] 0.1 10*3/uL 0.0 - 0.7 10*3/uL [facility] Eosinophils/100 WBC (Bld) 2.6 % 0.0 - 11.0 % [facility] Erythrocyte distribution width (RBC) [Ratio] 15.2 % High 11.5 - 14.5 % [facility] Hematocrit (Bld) [Volume fraction] 30.8 % Low 36.0 - 48.0 % [facility] Hemoglobin (Bld) [Mass/Vol] 10.4 g/dL Low [facility] Lymphocytes (Bld) [#/Vol] 1.2 10*3/uL 1.2 - 3.4 10*3/uL [facility] Lymphocytes/100 WBC (Bld) 23.7 % 20.0 - 55.0 % [facility] MCH (RBC) [Entitic mass] 32.3 pg 26.0 - 35.[address] [facility] MCHC (RBC) [Mass/Vol] 33.7 g/dL [facility] MCV (RBC) [Entitic vol] 95.[address] [facility] Monocytes (Bld) [#/Vol] 0.6 10*3/uL 0.0 - 0.7 10*3/uL [facility] Monocytes/100 WBC (Bld) 11.8 % High 0.0 - 10.0 % [facility] Neutrophils (Bld) [#/Vol] 3.1 10*3/uL 1.4 - 6.5 10*3/uL [facility] Neutrophils/100 WBC (Bld) 61.0 % 37.0 - 75.0 % [facility] Platelet mean volume (Bld) [Entitic vol] 6.6 fL Low [facility] Platelets (Bld) [#/Vol] 378 10*3/uL 130 - 400 10*3/uL [facility] RBC (Bld) [#/Vol] 3.22 10*6/uL Low 4.0 - 5.4 10*6/uL [facility] WBC (Bld) [#/Vol] 5.0 10*3/uL 3.6 - 11.0 10*3/uL [facility] No Panel Informationon 02-04 GFR COMMENT Average GFR for 70+ years old = 75. [facility] Interpretation and review of laboratory results Abnormal [facility] ABSOLUTE BASOPHIL COUNT 0.0 10*3/uL 0.0 - 0.2 10*3/uL [facility] Interpretation and review of laboratory results Abnormal [facility] BMP FASTINGon 02-04-2024 Anion gap [Moles/Vol] 1 mmol/L Low 8-16 [facility] Calcium [Mass/Vol] 8.8 mg/dL Normal 8.4-10.2 [facility] Chloride [Moles/Vol] 104 mmol/L Normal 98-107 [facility] Comment on above: Result Comment: Plea note: Triglyceride levels of 600mg/dL or higher may positively bias chloride results by approximately 2.1 mmol CO2 [Moles/Vol] 31 mmol/L High 22-30 [facility] Creatinine [Mass/Vol] 0.80 mg/dL Normal 0.7-1.2 [facility] EST. GFR, 89 ml/min/1.73sq.m [facility] EST. GFR,Non 73 ml/min/1.73sq.m [facility] GFR Information Average GFR for 70+ years old = 75. 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 Kidney failure, GFR = <15. The GFR estimate is not adjusted for extreme body surface area or acute process, nor has it been validated for women or ethnic groups other than and . Glucose [Mass/Vol] 96 mg/dL Normal 70-100 [facility] Comment on above: Result Comment: NORMAL <100 mg/dL PREDIABETES 101-126 mg/dL DIABETES 126 mg/dL or higher Potassium [Moles/Vol] 4.4 mmol/L Normal 3.5-5.1 [facility] Sodium [Moles/Vol] 136 mmol/L Low 137-145 [facility] Urea nitrogen [Mass/Vol] 18 mg/dL Normal 7-20 [facility] C REACTIVE PROTEINon 024 CRP [Mass/Vol] 21.4 mg/L High 0-10 [facility] CBCon 02-04-2024 ABSOLUTE BAS 0.0 10*3/uL Normal 0.0-0.2 [facility] ABSOLUTE EOS 0.2 10*3/uL Normal 0.0-0.7 [facility] ABSOLUTE NEUTROPHIL COUNT 3.5 10*3/uL Normal 1.4-6.5 [facility] Basophils/100 WBC (Bld) 0.7 % Normal 0.0-2.0 [facility] DTYPE AUTO DIFF Normal [facility] Eosinophils/100 WBC (Bld) 3.2 % Normal 0.0-11.0 [facility] Lymphocytes (Bld) [#/Vol] 1.5 10*3/uL Normal 1.2-3.4 [facility] Lymphocytes/100 WBC (Bld) 24.7 % Normal 20.0-55.0 [facility] Monocytes (Bld) [#/Vol] 0.8 10*3/uL High 0.0-0.7 [facility] Monocytes/100 WBC (Bld) 12.5 % High 0.0-10.0 [facility] Neutrophils/100 WBC (Bld) 58.9 % Normal 37.0-75.0 [facility] Erythrocyte distribution width (RBC) [Ratio] 15.5 % High 11.5-14.5 [facility] Hematocrit (Bld) [Volume fraction] 30.0 % Low 36.0-48.0 [facility] Hemoglobin (Bld) [Mass/Vol] 10.2 g/dL Low 12.0-16.0 [facility] MCH (RBC) [Entitic mass] 32.4 pg Normal 26.0-35.0 [facility] MCHC (RBC) [Mass/Vol] 33.8 g/dL Normal 27.0-37.0 [facility] MCV (RBC) [Entitic vol] 95.7 fL Normal 80.0-100.0 [facility] Platelet mean volume (Bld) [Entitic vol] 6.8 fL Low 7.4-11.0 [facility] Platelets (Bld) [#/Vol] 415 10*3/uL High 130-400 [facility] RBC (Bld) [#/Vol] 3.14 10*6/uL Low 4.0-5.4 [facility] WBC (Bld) [#/Vol] 6.0 10*3/uL Normal 3.6-11.0 [facility] Laboratory - Chemistry and C hemistry - challengeon 02-04-2024 Anion gap [Moles/Vol] 1 mmol/L Low [facility] Calcium [Mass/Vol] 8.8 mg/dL [facility] Chloride [Moles/Vol] 104 mmol/L [facility] CO2 [Moles/Vol] 31 mmol/L High [facility] Creatinine [Mass/Vol] 0.80 mg/dL [facility] CRP [Mass/Vol] 21.4 mg/L High 0 - 10 MG/L [facility] GFR/1.73 sq M.predicted among blacks MDRD (S/P/Bld) [Vol rate/Area] 89 mL/min/{1.73_m2} ml/min/1.73sq .m [facility] GFR/1.73 sq M.predicted among non-blacks MDRD (S/P/Bld) [Vol rate/Area] 73 mL/min/{1.73_m2} ml/min/1.73sq .m [facility] Glucose post fast [Mass/Vol] 96 mg/dL [facility] Potassium [Moles/Vol] 4.4 mmol/L [facility] Sodium [Moles/Vol] 136 mmol/L Low [facility] Urea nitrogen [Mass/Vol] 18 mg/dL [facility] Laboratory - Hematology and Cell countson 02-04-2024 Basophils/100 WBC (Bld) 0.7 % 0.0 - 2.0 % [facility] Differential cell count method Nom (Bld) AUTO DIFF % [facility] Eosinophils (Bld) [#/Vol] 0.2 10*3/uL 0.0 - 0.7 10*3/uL [facility] Eosinophils/100 WBC (Bld) 3.2 % 0.0 - 11.0 % [facility] Erythrocyte distribution width (RBC) [Ratio] 15.5 % High 11.5 - 14.5 % [facility] Hematocrit (Bld) [Volume fraction] 30.0 % Low 36.0 - 48.0 % [facility] Hemoglobin (Bld) [Mass/Vol] 10.2 g/dL Low [facility] Lymphocytes (Bld) [#/Vol] 1.5 10*3/uL 1.2 - 3.4 10*3/uL [facility] Lymphocytes/100 WBC (Bld) 24.7 % 20.0 - 55.0 % [facility] MCH (RBC) [Entitic mass] 32.4 pg 26.0 - 35.[address] [facility] MCHC (RBC) [Mass/Vol] 33.8 g/dL [facility] MCV (RBC) [Entitic vol] 95.[address] [facility] Monocytes (Bld) [#/Vol] 0.8 10*3/uL High 0.0 - 0.7 10*3/uL [facility] Monocytes/100 WBC (Bld) 12.5 % High 0.0 - 10.0 % [facility] Neutrophils (Bld) [#/Vol] 3.5 10*3/uL 1.4 - 6.5 10*3/uL [facility] Neutrophils/100 WBC (Bld) 58.9 % 37.0 - 75.0 % [facility] Platelet mean volume (Bld) [Entitic vol] 6.8 fL Low [facility] Platelets (Bld) [#/Vol] 415 10*3/uL High 130 - 400 10*3/uL [facility] RBC (Bld) [#/Vol] 3.14 10*6/uL Low 4.0 - 5.4 10*6/uL [facility] WBC (Bld) [#/Vol] 6.0 10*3/uL 3.6 - 11.0 10*3/uL [facility] No Panel Informationon 02-03 ABSOLUTE BASOPHIL COUNT 0.0 10*3/uL 0.0 - 0.2 10*3/uL [facility] Interpretation and review of laboratory results Abnormal [facility] GFR COMMENT Average GFR for 70+ years old = 75. [facility] Interpretation and review of laboratory results Abnormal [facility] BMP FASTINGon 02-03-2024 Anion gap [Moles/Vol] 2 mmol/L Low 8-16 [facility] Calcium [Mass/Vol] 9.1 mg/dL Normal 8.4-10.2 [facility] Chloride [Moles/Vol] 104 mmol/L Normal 98-107 [facility] Comment on above: Result Comment: Shonda matthews note: Triglyceride levels of 600mg/dL or higher may positively bias chloride results by approximately 2.1 mmol CO2 [Moles/Vol] 29 mmol/L Normal 22-30 [facility] Creatinine [Mass/Vol] 0.90 mg/dL Normal 0.7-1.2 [facility] EST. GFR, 77 ml/min/1.73sq.m Normal [facility] EST. GFR,Non 64 ml/min/1.73sq.m Normal [facility] GFR Information Average GFR for 70+ years old = 75. 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 Kidney failure, GFR = <15. The GFR estimate is not adjusted for extreme body surface area or acute process, nor has it been validated for women or ethnic groups other than and . Glucose [Mass/Vol] 100 mg/dL Normal 70-100 [facility] Comment on above: Result Comment: NORMAL <100 mg/dL PREDIABETES 101-126 mg/dL DIABETES 126 mg/dL or higher Potassium [Moles/Vol] 4.4 mmol/L Normal 3.5-5.1 [facility] Sodium [Moles/Vol] 135 mmol/L Low 137-145 [facility] Urea nitrogen [Mass/Vol] 17 mg/dL Normal 7-20 [facility] C REACTIVE PROTEINon 024 CRP [Mass/Vol] 21.9 mg/L High 0-10 [facility] CBCon 02-03-2024 ABSOLUTE BAS 0.1 10*3/uL Normal 0.0-0.2 [facility] ABSOLUTE EOS 0.2 10*3/uL Normal 0.0-0.7 [facility] ABSOLUTE NEUTROPHIL COUNT 3.6 10*3/uL Normal 1.4-6.5 [facility] Basophils/100 WBC (Bld) 1.2 % Normal 0.0-2.0 [facility] DTYPE AUTO DIFF Normal [facility] Eosinophils/100 WBC (Bld) 3.4 % Normal 0.0-11.0 [facility] Lymphocytes (Bld) [#/Vol] 1.6 10*3/uL Normal 1.2-3.4 [facility] Lymphocytes/100 WBC (Bld) 26.1 % Normal 20.0-55.0 [facility] Monocytes (Bld) [#/Vol] 0.7 10*3/uL Normal 0.0-0.7 [facility] Monocytes/100 WBC (Bld) 11.8 % High 0.0-10.0 [facility] Neutrophils/100 WBC (Bld) 57.5 % Normal 37.0-75.0 [facility] Erythrocyte distribution width (RBC) [Ratio] 15.0 % High 11.5-14.5 [facility] Hematocrit (Bld) [Volume fraction] 31.8 % Low 36.0-48.0 [facility] Hemoglobin (Bld) [Mass/Vol] 10.7 g/dL Low 12.0-16.0 [facility] MCH (RBC) [Entitic mass] 32.3 pg Normal 26.0-35.0 [facility] MCHC (RBC) [Mass/Vol] 33.7 g/dL Normal 27.0-37.0 [facility] MCV (RBC) [Entitic vol] 95.8 fL Normal 80.0-100.0 [facility] Platelet mean volume (Bld) [Entitic vol] 6.4 fL Low 7.4-11.0 [facility] Platelets (Bld) [#/Vol] 472 10*3/uL High 130-400 [facility] RBC (Bld) [#/Vol] 3.31 10*6/uL Low 4.0-5.4 [facility] WBC (Bld) [#/Vol] 6.3 10*3/uL Normal 3.6-11.0 [facility] Laboratory - Chemistry and C hemistry - challengeon 02-03-2024 Bilirubin Ql (U) Negative NEGATIVE [facility] pH (U) 7.0 [pH] 5.0 - 7.[address] [facility] Specific gravity (U) [Rel density] 1.015 1.010 - 1.[address] [facility] Urobilinogen (U) [Mass/Vol] 0.2 mg/dL [facility] Anion gap [Moles/Vol] 2 mmol/L Low [facility] Calcium [Mass/Vol] 9.1 mg/dL [facility] Chloride [Moles/Vol] 104 mmol/L [facility] CO2 [Moles/Vol] 29 mmol/L [facility] Creatinine [Mass/Vol] 0.90 mg/dL [facility] CRP [Mass/Vol] 21.9 mg/L High 0 - 10 MG/L [facility] GFR/1.73 sq M.predicted among blacks MDRD (S/P/Bld) [Vol rate/Area] 77 mL/min/{1.73_m2} ml/min/1.73sq .m [facility] GFR/1.73 sq M.predicted among non-blacks MDRD (S/P/Bld) [Vol rate/Area] 64 mL/min/{1.73_m2} ml/min/1.73sq .m [facility] Glucose post fast [Mass/Vol] 100 mg/dL [facility] Potassium [Moles/Vol] 4.4 mmol/L [facility] Sodium [Moles/Vol] 135 mmol/L Low [facility] Urea nitrogen [Mass/Vol] 17 mg/dL [facility] Laboratory - Hematology and Cell countson 02-03-2024 Hemoglobin Ql (U) Negative NEGATIVE [facility] Basophils/100 WBC (Bld) 1.2 % 0.0 - 2.0 % [facility] Differential cell count method Nom (Bld) AUTO DIFF % [facility] Eosinophils (Bld) [#/Vol] 0.2 10*3/uL 0.0 - 0.7 10*3/uL [facility] Eosinophils/100 WBC (Bld) 3.4 % 0.0 - 11.0 % [facility] Erythrocyte distribution width (RBC) [Ratio] 15.0 % High 11.5 - 14.5 % [facility] Hematocrit (Bld) [Volume fraction] 31.8 % Low 36.0 - 48.0 % [facility] Hemoglobin (Bld) [Mass/Vol] 10.7 g/dL Low [facility] Lymphocytes (Bld) [#/Vol] 1.6 10*3/uL 1.2 - 3.4 10*3/uL [facility] Lymphocytes/100 WBC (Bld) 26.1 % 20.0 - 55.0 % [facility] MCH (RBC) [Entitic mass] 32.3 pg 26.0 - 35.[address] [facility] MCHC (RBC) [Mass/Vol] 33.7 g/dL [facility] MCV (RBC) [Entitic vol] 95.[address] [facility] Monocytes (Bld) [#/Vol] 0.7 10*3/uL 0.0 - 0.7 10*3/uL [facility] Monocytes/100 WBC (Bld) 11.8 % High 0.0 - 10.0 % [facility] Neutrophils (Bld) [#/Vol] 3.6 10*3/uL 1.4 - 6.5 10*3/uL [facility] Neutrophils/100 WBC (Bld) 57.5 % 37.0 - 75.0 % [facility] Platelet mean volume (Bld) [Entitic vol] 6.4 fL Low [facility] Platelets (Bld) [#/Vol] 472 10*3/uL High 130 - 400 10*3/uL [facility] RBC (Bld) [#/Vol] 3.31 10*6/uL Low 4.0 - 5.4 10*6/uL [facility] WBC (Bld) [#/Vol] 6.3 10*3/uL 3.6 - 11.0 10*3/uL [facility] Laboratory - Specimen inform ationon 02-03-2024 Clarity (U) CLEAR CLEAR [facility] Color (U) YELLOW YELLOW [facility] Laboratory - Urinalysison Glucose Test strip (U) [Mass/Vol] Negative NEGATIVE mg/dl [facility] Ketones (U) [Mass/Vol] Negative NEGATIVE mg/dl [facility] Leukocyte esterase Test strip Ql (U) Negative NEGATIVE [facility] Nitrite Ql (U) Negative NEGATIVE [facility] Protein Ql (U) Negative NEGATIVE mg/dl [facility] No Panel Informationon 02-[address] [facility] GFR COMMENT Average GFR for 70+ years old = 75. [facility] Interpretation and review of laboratory results Abnormal [facility] ABSOLUTE BASOPHIL COUNT 0.1 10*3/uL 0.0 - 0.2 10*3/uL [facility] Interpretation and review of laboratory results Abnormal [facility] URINE MACROSCOPICon 02-03-20 Bilirubin Ql (U) Negative Normal NEGATIVE [facility] Clarity (U) CLEAR Normal CLEAR [facility] Color (U) YELLOW Normal YELLOW [facility] Glucose Ql (U) Negative Normal NEGATIVE [facility] pH (U) 7.0 [pH] Normal 5.0-7.0 [facility] URINE HEMOGLOBIN Negative Normal NEGATIVE [facility] URINE KETONE Negative Normal NEGATIVE [facility] URINE LEUKOTEST Negative Normal NEGATIVE [facility] URINE NITRATES Negative Normal NEGATIVE [facility] URINE SPEC GRAVITY 1.015 Normal 1.010-1.025 [facility] URINE TOTAL PROTEIN Negative Normal NEGATIVE [facility] Urobilinogen Qn (U) 0.2 {Monique'U}/dL Normal 0.2-1.0 [facility] BMP FASTINGon 02-02-2024 Anion gap [Moles/Vol] 1 mmol/L Low 8-16 [facility] Comment on above: Performed By: #### A CBC #### Testing performed at [address] [address] Calcium [Mass/Vol] 8.9 mg/dL Normal 8.4-10.2 [facility] Comment on above: Performed By: #### A CBC #### Testing performed at [address] [address] Chloride [Moles/Vol] 103 mmol/L Normal 98-107 [facility] Comment on above: Result Comment: Shonda matthews note: Triglyceride levels of 600mg/dL or higher may positively bias chloride results by approximately 2.1 mmol Performed By: #### A CBC #### Testing performed at [address] [address] CO2 [Moles/Vol] 30 mmol/L Normal 22-30 [facility] Comment on above: Performed By: #### A CBC #### Testing performed at [address] [address] Creatinine [Mass/Vol] 0.90 mg/dL Normal 0.7-1.2 [facility] Comment on above: Performed By: #### A CBC #### Testing performed at [address] [address] EST. GFR, 77 ml/min/1.73sq.m [facility] Comment on above: Performed By: #### A CBC #### Testing performed at [address] [address] EST. GFR,Non 64 ml/min/1.73sq.m [facility] Comment on above: Performed By: #### A CBC #### Testing performed at [address] [address] GFR Information Average GFR for 70+ years old = 75. 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 Kidney failure, GFR = <15. The GFR estimate is not adjusted for extreme body surface area or acute process, nor has it been validated for women or ethnic groups other than and . Performed By: #### A CBC #### Testing performed at [address] [address] Glucose [Mass/Vol] 103 mg/dL High 70-100 [facility] Comment on above: Result Comment: NORMAL <100 mg/dL PREDIABETES 101-126 mg/dL DIABETES 126 mg/dL or higher Performed By: #### A CBC #### Testing performed at [address] [address] Potassium [Moles/Vol] 4.2 mmol/L Normal 3.5-5.1 [facility] Comment on above: Performed By: #### A CBC #### Testing performed at [address] [address] Sodium [Moles/Vol] 134 mmol/L Low 137-145 [facility] Comment on above: Performed By: #### A CBC #### Testing performed at [address] [address] Urea nitrogen [Mass/Vol] 18 mg/dL Normal 7-20 [facility] Comment on above: Performed By: #### A CBC #### Testing performed at [address] [address] C REACTIVE PROTEINon 024 CRP [Mass/Vol] 26.3 mg/L High 0-10 [facility] Comment on above: Performed By: #### A CBC #### Testing performed at [address] [address] CBCon 02-02-2024 ABSOLUTE BAS 0.1 10*3/uL Normal 0.0-0.2 [facility] Comment on above: Performed By: #### A CBC #### Testing performed at [address] [address] ABSOLUTE EOS 0.2 10*3/uL Normal 0.0-0.7 [facility] Comment on above: Performed By: #### A CBC #### Testing performed at [address] [address] ABSOLUTE NEUTROPHIL COUNT 3.4 10*3/uL Normal 1.4-6.5 [facility] Comment on above: Performed By: #### A CBC #### Testing performed at [address] [address] Basophils/100 WBC (Bld) 0.9 % Normal 0.0-2.0 [facility] Comment on above: Performed By: #### A CBC #### Testing performed at [address] [address] DTYPE AUTO DIFF Normal [facility] Comment on above: Performed By: #### A CBC #### Testing performed at [address] [address] Eosinophils/100 WBC (Bld) 3.7 % Normal 0.0-11.0 [facility] Comment on above: Performed By: #### A CBC #### Testing performed at [address] [address] Lymphocytes (Bld) [#/Vol] 1.6 10*3/uL Normal 1.2-3.4 [facility] Comment on above: Performed By: #### A CBC #### Testing performed at [address] [place] [address] Lymphocytes/100 WBC (Bld) 26.5 % Normal 20.0-55.0 [facility] Comment on above: Performed By: #### A CBC #### Testing performed at [address] [address] Monocytes (Bld) [#/Vol] 0.8 10*3/uL High 0.0-0.7 [facility] Comment on above: Performed By: #### A CBC #### Testing performed at [address] [address] Monocytes/100 WBC (Bld) 12.8 % High 0.0-10.0 [facility] Comment on above: Performed By: #### A CBC #### Testing performed at [address] [address] Neutrophils/100 WBC (Bld) 56.1 % Normal 37.0-75.0 [facility] Comment on above: Performed By: #### A CBC #### Testing performed at [address] [address] Erythrocyte distribution width (RBC) [Ratio] 15.2 % High 11.5-14.5 [facility] Comment on above: Performed By: #### A CBC #### Testing performed at [address] [address] Hematocrit (Bld) [Volume fraction] 31.1 % Low 36.0-48.0 [facility] Comment on above: Performed By: #### A CBC #### Testing performed at [address] [address] Hemoglobin (Bld) [Mass/Vol] 10.5 g/dL Low 12.0-16.0 [facility] Comment on above: Performed By: #### A CBC #### Testing performed at [address] [address] MCH (RBC) [Entitic mass] 32.4 pg Normal 26.0-35.0 [facility] Comment on above: Performed By: #### A CBC #### Testing performed at [address] [address] MCHC (RBC) [Mass/Vol] 33.8 g/dL Normal 27.0-37.0 [facility] Comment on above: Performed By: #### A CBC #### Testing performed at [address] [address] MCV (RBC) [Entitic vol] 95.9 fL Normal 80.0-100.0 [facility] Comment on above: Performed By: #### A CBC #### Testing performed at [address] [address] Platelet mean volume (Bld) [Entitic vol] 6.5 fL Low 7.4-11.0 [facility] Comment on above: Performed By: #### A CBC #### Testing performed at [address] [address] Platelets (Bld) [#/Vol] 429 10*3/uL High 130-400 [facility] Comment on above: Performed By: #### A CBC #### [place] [address] RBC (Bld) [#/Vol] 3.24 10*6/uL Low 4.0-5.4 [facility] Comment on above: Performed By: #### A CBC #### Testing performed at [address] [address] WBC (Bld) [#/Vol] 6.0 10*3/uL Normal 3.6-11.0 [facility] Comment on above: Performed By: #### A CBC #### Testing performed at [place] [id number] Laboratory - Chemistry and C hemistry - challengeon 02-02-2024 Anion gap [Moles/Vol] 1 mmol/L Low [facility] Calcium [Mass/Vol] 8.9 mg/dL [facility] Chloride [Moles/Vol] 103 mmol/L [facility] CO2 [Moles/Vol] 30 mmol/L [facility] Creatinine [Mass/Vol] 0.90 mg/dL [facility] CRP [Mass/Vol] 26.3 mg/L High 0 - 10 MG/L [facility] GFR/1.73 sq M.predicted among blacks MDRD (S/P/Bld) [Vol rate/Area] 77 mL/min/{1.73_m2} ml/min/1.73sq .m [facility] GFR/1.73 sq M.predicted among non-blacks MDRD (S/P/Bld) [Vol rate/Area] 64 mL/min/{1.73_m2} ml/min/1.73sq .m [facility] Glucose post fast [Mass/Vol] 103 mg/dL High [facility] Potassium [Moles/Vol] 4.2 mmol/L [facility] Sodium [Moles/Vol] 134 mmol/L Low [facility] Urea nitrogen [Mass/Vol] 18 mg/dL [facility] Laboratory - Hematology and Cell countson 02-02-2024 Basophils/100 WBC (Bld) 0.9 % 0.0 - 2.0 % [facility] Differential cell count method Nom (Bld) AUTO DIFF % [facility] Eosinophils (Bld) [#/Vol] 0.2 10*3/uL 0.0 - 0.7 10*3/uL [facility] Eosinophils/100 WBC (Bld) 3.7 % 0.0 - 11.0 % [facility] Erythrocyte distribution width (RBC) [Ratio] 15.2 % High 11.5 - 14.5 % [facility] Hematocrit (Bld) [Volume fraction] 31.1 % Low 36.0 - 48.0 % [facility] Hemoglobin (Bld) [Mass/Vol] 10.5 g/dL Low [facility] Lymphocytes (Bld) [#/Vol] 1.6 10*3/uL 1.2 - 3.4 10*3/uL [facility] Lymphocytes/100 WBC (Bld) 26.5 % 20.0 - 55.0 % [facility] MCH (RBC) [Entitic mass] 32.4 pg 26.0 - 35.[address] [facility] MCHC (RBC) [Mass/Vol] 33.8 g/dL [facility] MCV (RBC) [Entitic vol] 95.[address] [facility] Monocytes (Bld) [#/Vol] 0.8 10*3/uL High 0.0 - 0.7 10*3/uL [facility] Monocytes/100 WBC (Bld) 12.8 % High 0.0 - 10.0 % [facility] Neutrophils (Bld) [#/Vol] 3.4 10*3/uL 1.4 - 6.5 10*3/uL [facility] Neutrophils/100 WBC (Bld) 56.1 % 37.0 - 75.0 % [facility] Platelet mean volume (Bld) [Entitic vol] 6.5 fL Low [facility] Platelets (Bld) [#/Vol] 429 10*3/uL High 130 - 400 10*3/uL [facility] RBC (Bld) [#/Vol] 3.24 10*6/uL Low 4.0 - 5.4 10*6/uL [facility] WBC (Bld) [#/Vol] 6.0 10*3/uL 3.6 - 11.0 10*3/uL [facility] No Panel Informationon 02-01 GFR COMMENT Average GFR for 70+ years old = 75. [facility] Interpretation and review of laboratory results Abnormal [facility] ABSOLUTE BASOPHIL COUNT 0.1 10*3/uL 0.0 - 0.2 10*3/uL [facility] Interpretation and review of laboratory results Abnormal [facility] BMP FASTINGon 02-01-2024 Anion gap [Moles/Vol] 2 mmol/L Low 8-16 [facility] Calcium [Mass/Vol] 8.9 mg/dL Normal 8.4-10.2 [facility] Chloride [Moles/Vol] 103 mmol/L Normal 98-107 [facility] Comment on above: Result Comment: Shonda matthews note: Triglyceride levels of 600mg/dL or higher may positively bias chloride results by approximately 2.1 mmol CO2 [Moles/Vol] 28 mmol/L Normal 22-30 [facility] Creatinine [Mass/Vol] 0.90 mg/dL Normal 0.7-1.2 [facility] EST. GFR, 77 ml/min/1.73sq.m [facility] EST. GFR,Non 64 ml/min/1.73sq.m [facility] GFR Information Average GFR for 70+ years old = 75. 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 Kidney failure, GFR = <15. The GFR estimate is not adjusted for extreme body surface area or acute process, nor has it been validated for women or ethnic groups other than and . Glucose [Mass/Vol] 98 mg/dL Normal 70-100 [facility] Comment on above: Result Comment: NORMAL <100 mg/dL PREDIABETES 101-126 mg/dL DIABETES 126 mg/dL or higher Potassium [Moles/Vol] 4.4 mmol/L Normal 3.5-5.1 [facility] Sodium [Moles/Vol] 133 mmol/L Low 137-145 [facility] Urea nitrogen [Mass/Vol] 14 mg/dL Normal 7-20 [facility] C REACTIVE PROTEINon 024 CRP [Mass/Vol] 26.1 mg/L High 0-10 [facility] CBCon 02-01-2024 ABSOLUTE BAS 0.1 10*3/uL Normal 0.0-0.2 [facility] ABSOLUTE EOS 0.1 10*3/uL Normal 0.0-0.7 [facility] ABSOLUTE NEUTROPHIL COUNT 3.0 10*3/uL Normal 1.4-6.5 [facility] Basophils/100 WBC (Bld) 1.1 % Normal 0.0-2.0 [facility] DTYPE AUTO DIFF Normal [facility] Eosinophils/100 WBC (Bld) 2.6 % Normal 0.0-11.0 [facility] Lymphocytes (Bld) [#/Vol] 1.7 10*3/uL Normal 1.2-3.4 [facility] Lymphocytes/100 WBC (Bld) 28.9 % Normal 20.0-55.0 [facility] Monocytes (Bld) [#/Vol] 0.9 10*3/uL High 0.0-0.7 [facility] Monocytes/100 WBC (Bld) 15.1 % High 0.0-10.0 [facility] Neutrophils/100 WBC (Bld) 52.3 % Normal 37.0-75.0 [facility] Erythrocyte distribution width (RBC) [Ratio] 14.8 % High 11.5-14.5 [facility] Hematocrit (Bld) [Volume fraction] 31.4 % Low 36.0-48.0 [facility] Hemoglobin (Bld) [Mass/Vol] 10.6 g/dL Low 12.0-16.0 [facility] MCH (RBC) [Entitic mass] 32.4 pg Normal 26.0-35.0 [facility] MCHC (RBC) [Mass/Vol] 33.9 g/dL Normal 27.0-37.0 [facility] MCV (RBC) [Entitic vol] 95.5 fL Normal 80.0-100.0 [facility] Platelet mean volume (Bld) [Entitic vol] 6.4 fL Low 7.4-11.0 [facility] Platelets (Bld) [#/Vol] 479 10*3/uL High 130-400 [facility] RBC (Bld) [#/Vol] 3.29 10*6/uL Low 4.0-5.4 [facility] WBC (Bld) [#/Vol] 5.8 10*3/uL Normal 3.6-11.0 [facility] Laboratory - Chemistry and C hemistry - challengeon 02-01-2024 Anion gap [Moles/Vol] 2 mmol/L Low [facility] Calcium [Mass/Vol] 8.9 mg/dL [facility] Chloride [Moles/Vol] 103 mmol/L [facility] CO2 [Moles/Vol] 28 mmol/L [facility] Creatinine [Mass/Vol] 0.90 mg/dL [facility] CRP [Mass/Vol] 26.1 mg/L High 0 - 10 MG/L [facility] GFR/1.73 sq M.predicted among blacks MDRD (S/P/Bld) [Vol rate/Area] 77 mL/min/{1.73_m2} ml/min/1.73sq .m [facility] GFR/1.73 sq M.predicted among non-blacks MDRD (S/P/Bld) [Vol rate/Area] 64 mL/min/{1.73_m2} ml/min/1.73sq .m [facility] Glucose post fast [Mass/Vol] 98 mg/dL [facility] Potassium [Moles/Vol] 4.4 mmol/L [facility] Sodium [Moles/Vol] 133 mmol/L Low [facility] Urea nitrogen [Mass/Vol] 14 mg/dL [facility] Laboratory - Hematology and Cell countson 02-01-2024 Basophils/100 WBC (Bld) 1.1 % 0.0 - 2.0 % [facility] Differential cell count method Nom (Bld) AUTO DIFF % [facility] Eosinophils (Bld) [#/Vol] 0.1 10*3/uL 0.0 - 0.7 10*3/uL [facility] Eosinophils/100 WBC (Bld) 2.6 % 0.0 - 11.0 % [facility] Erythrocyte distribution width (RBC) [Ratio] 14.8 % High 11.5 - 14.5 % [facility] Hematocrit (Bld) [Volume fraction] 31.4 % Low 36.0 - 48.0 % [facility] Hemoglobin (Bld) [Mass/Vol] 10.6 g/dL Low [facility] Lymphocytes (Bld) [#/Vol] 1.7 10*3/uL 1.2 - 3.4 10*3/uL [facility] Lymphocytes/100 WBC (Bld) 28.9 % 20.0 - 55.0 % [facility] MCH (RBC) [Entitic mass] 32.4 pg 26.0 - 35.[address] [facility] MCHC (RBC) [Mass/Vol] 33.9 g/dL [facility] MCV (RBC) [Entitic vol] 95.[address] [facility] Monocytes (Bld) [#/Vol] 0.9 10*3/uL High 0.0 - 0.7 10*3/uL [facility] Monocytes/100 WBC (Bld) 15.1 % High 0.0 - 10.0 % [facility] Neutrophils (Bld) [#/Vol] 3.0 10*3/uL 1.4 - 6.5 10*3/uL [facility] Neutrophils/100 WBC (Bld) 52.3 % 37.0 - 75.0 % [facility] Platelet mean volume (Bld) [Entitic vol] 6.4 fL Low [facility] Platelets (Bld) [#/Vol] 479 10*3/uL High 130 - 400 10*3/uL [facility] RBC (Bld) [#/Vol] 3.29 10*6/uL Low 4.0 - 5.4 10*6/uL [facility] WBC (Bld) [#/Vol] 5.8 10*3/uL 3.6 - 11.0 10*3/uL [facility] No Panel Informationon 01-31 GFR COMMENT Average GFR for 70+ years old = 75. [facility] Interpretation and review of laboratory results Abnormal [facility] ABSOLUTE BASOPHIL COUNT 0.1 10*3/uL 0.0 - 0.2 10*3/uL [facility] Interpretation and review of laboratory results Abnormal [facility] BMP FASTINGon 01-31-2024 Anion gap [Moles/Vol] Negative Normal 8-16 [facility] Calcium [Mass/Vol] 8.7 mg/dL Normal 8.4-10.2 [facility] Chloride [Moles/Vol] 102 mmol/L Normal 98-107 [facility] Comment on above: Result Comment: Shonda matthews note: Triglyceride levels of 600mg/dL or higher may positively bias chloride results by approximately 2.1 mmol CO2 [Moles/Vol] 33 mmol/L High 22-30 [facility] Creatinine [Mass/Vol] 1.10 mg/dL Normal 0.7-1.2 [facility] EST. GFR, 61 ml/min/1.73sq.m [facility] EST. GFR,Non 51 ml/min/1.73sq.m [facility] GFR Information Average GFR for 70+ years old = 75. [facility] Comment on above: Result Comment: Operations Staff Specialist [employer] Kidney disease, GFR = <60. Kidney failure, GFR = <15. The GFR estimate is not adjusted for extreme body surface area or acute process, nor has it been validated for women or ethnic groups other than and . Glucose [Mass/Vol] 94 mg/dL Normal 70-100 [facility] Comment on above: Result Comment: NORMAL <100 mg/dL PREDIABETES 101-126 mg/dL DIABETES 126 mg/dL or higher Potassium [Moles/Vol] 4.5 mmol/L Normal 3.5-5.1 [facility] Sodium [Moles/Vol] 134 mmol/L Low 137-145 [facility] Urea nitrogen [Mass/Vol] 12 mg/dL Normal 7-20 [facility] C REACTIVE PROTEINon 024 CRP [Mass/Vol] 27.5 mg/L High 0-10 [facility] CBCon 01-31-2024 ABSOLUTE BAS 0.1 10*3/uL Normal 0.0-0.2 [facility] ABSOLUTE EOS 0.2 10*3/uL Normal 0.0-0.7 [facility] ABSOLUTE NEUTROPHIL COUNT 2.5 10*3/uL Normal 1.4-6.5 [facility] Basophils/100 WBC (Bld) 1.4 % Normal 0.0-2.0 [facility] DTYPE AUTO DIFF Normal [facility] Eosinophils/100 WBC (Bld) 3.6 % Normal 0.0-11.0 [facility] Lymphocytes (Bld) [#/Vol] 1.5 10*3/uL Normal 1.2-3.4 [facility] Lymphocytes/100 WBC (Bld) 28.8 % Normal 20.0-55.0 [facility] Monocytes (Bld) [#/Vol] 0.8 10*3/uL High 0.0-0.7 [facility] Monocytes/100 WBC (Bld) 16.5 % High 0.0-10.0 [facility] Neutrophils/100 WBC (Bld) 49.7 % Normal 37.0-75.0 [facility] Erythrocyte distribution width (RBC) [Ratio] 14.9 % High 11.5-14.5 [facility] Hematocrit (Bld) [Volume fraction] 29.3 % Low 36.0-48.0 [facility] Hemoglobin (Bld) [Mass/Vol] 10.0 g/dL Low 12.0-16.0 [facility] MCH (RBC) [Entitic mass] 32.5 pg Normal 26.0-35.0 [facility] MCHC (RBC) [Mass/Vol] 34.1 g/dL Normal 27.0-37.0 [facility] MCV (RBC) [Entitic vol] 95.2 fL Normal 80.0-100.0 [facility] Platelet mean volume (Bld) [Entitic vol] 6.3 fL Low 7.4-11.0 [facility] Platelets (Bld) [#/Vol] 439 10*3/uL High 130-400 [facility] RBC (Bld) [#/Vol] 3.08 10*6/uL Low 4.0-5.4 [facility] WBC (Bld) [#/Vol] 5.1 10*3/uL Normal 3.6-11.0 [facility] LIPASE,SERUMon 01-31-2024 LIPASE,SERUM 43 U/L Normal 23-300 [facility] LIVER PANELon 01-31-2024 Albumin [Mass/Vol] 3.0 g/dL Low 3.5-5.0 [facility] ALP [Catalytic activity/Vol] 107 U/L Normal 38-126 [facility] ALT [Catalytic activity/Vol] 13 U/L Normal <35 [facility] AST [Catalytic activity/Vol] 26 U/L Normal 14-36 [facility] Bilirubin [Mass/Vol] 0.2 mg/dL Normal 0.2-1.3 [facility] Bilirubin.indirect [Mass/Vol] 0.2 mg/dL Normal 0-0.4 [facility] Protein [Mass/Vol] 6.1 g/dL Low 6.3-8.2 [facility] Laboratory - Chemistry and C hemistry - challengeon 01-31-2024 Prealbumin [Mass/Vol] 11.9 mg/dL Low [facility] Albumin [Mass/Vol] 3.0 g/dL Low [facility] ALP [Catalytic activity/Vol] 107 U/L [facility] ALT [Catalytic activity/Vol] 13 U/L NINF [facility] Anion gap [Moles/Vol] Negative [facility] AST [Catalytic activity/Vol] 26 U/L [facility] Bilirubin [Mass/Vol] 0.2 mg/dL [facility] Bilirubin.direct [Mass/Vol] 0.2 mg/dL [facility] Calcium [Mass/Vol] 8.7 mg/dL [facility] Chloride [Moles/Vol] 102 mmol/L [facility] CO2 [Moles/Vol] 33 mmol/L High [facility] Creatinine [Mass/Vol] 1.10 mg/dL [facility] CRP [Mass/Vol] 27.5 mg/L High 0 - 10 MG/L [facility] GFR/1.73 sq M.predicted among blacks MDRD (S/P/Bld) [Vol rate/Area] 61 mL/min/{1.73_m2} ml/min/1.73sq .m [facility] GFR/1.73 sq M.predicted among non-blacks MDRD (S/P/Bld) [Vol rate/Area] 51 mL/min/{1.73_m2} ml/min/1.73sq .m [facility] Glucose post fast [Mass/Vol] 94 mg/dL [facility] Lipase [Catalytic activity/Vol] 43 U/L 23 - 300 U/L [facility] Potassium [Moles/Vol] 4.5 mmol/L [facility] Protein [Mass/Vol] 6.1 g/dL Low [facility] Sodium [Moles/Vol] 134 mmol/L Low [facility] Urea nitrogen [Mass/Vol] 12 mg/dL [facility] Laboratory - Hematology and Cell countson 01-31-2024 Basophils/100 WBC (Bld) 1.4 % 0.0 - 2.0 % [facility] Differential cell count method Nom (Bld) AUTO DIFF % [facility] Eosinophils (Bld) [#/Vol] 0.2 10*3/uL 0.0 - 0.7 10*3/uL [facility] Eosinophils/100 WBC (Bld) 3.6 % 0.0 - 11.0 % [facility] Erythrocyte distribution width (RBC) [Ratio] 14.9 % High 11.5 - 14.5 % [facility] Hematocrit (Bld) [Volume fraction] 29.3 % Low 36.0 - 48.0 % [facility] Hemoglobin (Bld) [Mass/Vol] 10.0 g/dL Low [facility] Lymphocytes (Bld) [#/Vol] 1.5 10*3/uL 1.2 - 3.4 10*3/uL [facility] Lymphocytes/100 WBC (Bld) 28.8 % 20.0 - 55.0 % [facility] MCH (RBC) [Entitic mass] 32.5 pg 26.0 - 35.[address] [facility] MCHC (RBC) [Mass/Vol] 34.1 g/dL [facility] MCV (RBC) [Entitic vol] 95.[address] [facility] Monocytes (Bld) [#/Vol] 0.8 10*3/uL High 0.0 - 0.7 10*3/uL [facility] Monocytes/100 WBC (Bld) 16.5 % High 0.0 - 10.0 % [facility] Neutrophils (Bld) [#/Vol] 2.5 10*3/uL 1.4 - 6.5 10*3/uL [facility] Neutrophils/100 WBC (Bld) 49.7 % 37.0 - 75.0 % [facility] Platelet mean volume (Bld) [Entitic vol] 6.3 fL Low [facility] Platelets (Bld) [#/Vol] 439 10*3/uL High 130 - 400 10*3/uL [facility] RBC (Bld) [#/Vol] 3.08 10*6/uL Low 4.0 - 5.4 10*6/uL [facility] WBC (Bld) [#/Vol] 5.1 10*3/uL 3.6 - 11.0 10*3/uL [facility] No Panel Informationon 01-30 Interpretation and review of laboratory results Abnormal [facility] GFR COMMENT Average GFR for 70+ years old = 75. [facility] Interpretation and review of laboratory results Abnormal [facility] ABSOLUTE BASOPHIL COUNT 0.1 10*3/uL 0.0 - 0.2 10*3/uL [facility] Interpretation and review of laboratory results Abnormal [facility] PREALBUMINon 01-31-2024 Prealbumin [Mass/Vol] 11.9 mg/dL Low 17.6-36.0 [facility] BMP FASTINGon 01-30-2024 Anion gap [Moles/Vol] 3 mmol/L Low 8-16 [facility] Calcium [Mass/Vol] 8.6 mg/dL Normal 8.4-10.2 [facility] Chloride [Moles/Vol] 101 mmol/L Normal 98-107 [facility] Comment on above: Result Comment: Shonda matthews note: Triglyceride levels of 600mg/dL or higher may positively bias chloride results by approximately 2.1 mmol CO2 [Moles/Vol] 31 mmol/L High 22-30 [facility] Creatinine [Mass/Vol] 1.00 mg/dL Normal 0.7-1.2 [facility] EST. GFR, 68 ml/min/1.73sq.m Normal [facility] EST. GFR,Non 57 ml/min/1.73sq.m [facility] GFR Information Average GFR for 70+ years old = 75. 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 Kidney failure, GFR = <15. The GFR estimate is not adjusted for extreme body surface area or acute process, nor has it been validated for women or ethnic groups other than and . Glucose [Mass/Vol] 93 mg/dL Normal 70-100 [facility] Comment on above: Result Comment: NORMAL <100 mg/dL PREDIABETES 101-126 mg/dL DIABETES 126 mg/dL or higher Potassium [Moles/Vol] 4.4 mmol/L Normal 3.5-5.1 [facility] Sodium [Moles/Vol] 135 mmol/L Low 137-145 [facility] Urea nitrogen [Mass/Vol] 10 mg/dL Normal 7-20 [facility] C REACTIVE PROTEINon 024 CRP [Mass/Vol] 25.8 mg/L High 0-10 [facility] CBCon 01-30-2024 ABSOLUTE BAS 0.1 10*3/uL Normal 0.0-0.2 [facility] ABSOLUTE EOS 0.2 10*3/uL Normal 0.0-0.7 [facility] ABSOLUTE NEUTROPHIL COUNT 2.9 10*3/uL Normal 1.4-6.5 [facility] Basophils/100 WBC (Bld) 1.2 % Normal 0.0-2.0 [facility] DTYPE AUTO DIFF Normal [facility] Eosinophils/100 WBC (Bld) 3.0 % Normal 0.0-11.0 [facility] Lymphocytes (Bld) [#/Vol] 1.4 10*3/uL Normal 1.2-3.4 [facility] Lymphocytes/100 WBC (Bld) 26.1 % Normal 20.0-55.0 [facility] Monocytes (Bld) [#/Vol] 0.8 10*3/uL High 0.0-0.7 [facility] Monocytes/100 WBC (Bld) 15.2 % High 0.0-10.0 [facility] Neutrophils/100 WBC (Bld) 54.5 % Normal 37.0-75.0 [facility] Erythrocyte distribution width (RBC) [Ratio] 15.0 % High 11.5-14.5 [facility] Hematocrit (Bld) [Volume fraction] 29.9 % Low 36.0-48.0 [facility] Hemoglobin (Bld) [Mass/Vol] 10.3 g/dL Low 12.0-16.0 [facility] MCH (RBC) [Entitic mass] 32.9 pg Normal 26.0-35.0 [facility] MCHC (RBC) [Mass/Vol] 34.4 g/dL Normal 27.0-37.0 [facility] MCV (RBC) [Entitic vol] 95.6 fL Normal 80.0-100.0 [facility] Platelet mean volume (Bld) [Entitic vol] 6.3 fL Low 7.4-11.0 [facility] Platelets (Bld) [#/Vol] 466 10*3/uL High 130-400 [facility] RBC (Bld) [#/Vol] 3.12 10*6/uL Low 4.0-5.4 [facility] WBC (Bld) [#/Vol] 5.3 10*3/uL Normal 3.6-11.0 [facility] Laboratory - Chemistry and C hemistry - challengeon 01-30-2024 Anion gap [Moles/Vol] 3 mmol/L Low [facility] Calcium [Mass/Vol] 8.6 mg/dL [facility] Chloride [Moles/Vol] 101 mmol/L [facility] CO2 [Moles/Vol] 31 mmol/L [facility] Creatinine [Mass/Vol] 1.00 mg/dL [facility] CRP [Mass/Vol] 25.8 mg/L High 0 - 10 MG/L [facility] GFR/1.73 sq M.predicted among blacks MDRD (S/P/Bld) [Vol rate/Area] 68 mL/min/{1.73_m2} ml/min/1.73sq .m [facility] GFR/1.73 sq M.predicted among non-blacks MDRD (S/P/Bld) [Vol rate/Area] 57 mL/min/{1.73_m2} ml/min/1.73sq .m [facility] Glucose post fast [Mass/Vol] 93 mg/dL [facility] Potassium [Moles/Vol] 4.4 mmol/L [facility] Sodium [Moles/Vol] 135 mmol/L Low [facility] Urea nitrogen [Mass/Vol] 10 mg/dL [facility] Laboratory - Hematology and Cell countson 01-30-2024 Basophils/100 WBC (Bld) 1.2 % 0.0 - 2.0 % [facility] Differential cell count method Nom (Bld) AUTO DIFF % [facility] Eosinophils (Bld) [#/Vol] 0.2 10*3/uL 0.0 - 0.7 10*3/uL [facility] Eosinophils/100 WBC (Bld) 3.0 % 0.0 - 11.0 % [facility] Erythrocyte distribution width (RBC) [Ratio] 15.0 % High 11.5 - 14.5 % [facility] Hematocrit (Bld) [Volume fraction] 29.9 % Low 36.0 - 48.0 % [facility] Hemoglobin (Bld) [Mass/Vol] 10.3 g/dL Low [facility] Lymphocytes (Bld) [#/Vol] 1.4 10*3/uL 1.2 - 3.4 10*3/uL [facility] Lymphocytes/100 WBC (Bld) 26.1 % 20.0 - 55.0 % [facility] MCH (RBC) [Entitic mass] 32.9 pg 26.0 - 35.[address] [facility] MCHC (RBC) [Mass/Vol] 34.4 g/dL [facility] MCV (RBC) [Entitic vol] 95.[address] [facility] Monocytes (Bld) [#/Vol] 0.8 10*3/uL High 0.0 - 0.7 10*3/uL [facility] Monocytes/100 WBC (Bld) 15.2 % High 0.0 - 10.0 % [facility] Neutrophils (Bld) [#/Vol] 2.9 10*3/uL 1.4 - 6.5 10*3/uL [facility] Neutrophils/100 WBC (Bld) 54.5 % 37.0 - 75.0 % [facility] Platelet mean volume (Bld) [Entitic vol] 6.3 fL Low [facility] Platelets (Bld) [#/Vol] 466 10*3/uL High 130 - 400 10*3/uL [facility] RBC (Bld) [#/Vol] 3.12 10*6/uL Low 4.0 - 5.4 10*6/uL [facility] WBC (Bld) [#/Vol] 5.3 10*3/uL 3.6 - 11.0 10*3/uL [facility] No Panel Informationon 01-29 GFR COMMENT Average GFR for 70+ years old = 75. [facility] Interpretation and review of laboratory results Abnormal [facility] ABSOLUTE BASOPHIL COUNT 0.1 10*3/uL 0.0 - 0.2 10*3/uL [facility] Interpretation and review of laboratory results Abnormal [facility] BMP FASTINGon 01-29-2024 Anion gap [Moles/Vol] 3 mmol/L Low 8-16 [facility] Calcium [Mass/Vol] 8.3 mg/dL Low 8.4-10.2 [facility] Chloride [Moles/Vol] 101 mmol/L Normal 98-107 [facility] Comment on above: Result Comment: Shonda matthews note: Triglyceride levels of 600mg/dL or higher may positively bias chloride results by approximately 2.1 mmol CO2 [Moles/Vol] 30 mmol/L Normal 22-30 [facility] Creatinine [Mass/Vol] 0.80 mg/dL Normal 0.7-1.2 [facility] EST. GFR, 89 ml/min/1.73sq.m Normal [facility] EST. GFR,Non 73 ml/min/1.73sq.m Normal [facility] GFR Information Average GFR for 70+ years old = 75. 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 Kidney failure, GFR = <15. The GFR estimate is not adjusted for extreme body surface area or acute process, nor has it been validated for women or ethnic groups other than and . Glucose [Mass/Vol] 94 mg/dL Normal 70-100 [facility] Comment on above: Result Comment: NORMAL <100 mg/dL PREDIABETES 101-126 mg/dL DIABETES 126 mg/dL or higher Potassium [Moles/Vol] 4.2 mmol/L Normal 3.5-5.1 [facility] Sodium [Moles/Vol] 134 mmol/L Low 137-145 [facility] Urea nitrogen [Mass/Vol] 9 mg/dL Normal 7-20 [facility] C REACTIVE PROTEINon 024 CRP [Mass/Vol] 28.9 mg/L High 0-10 [facility] CBCon 01-29-2024 ABSOLUTE BAS 0.1 10*3/uL Normal 0.0-0.2 [facility] ABSOLUTE EOS 0.2 10*3/uL Normal 0.0-0.7 [facility] ABSOLUTE NEUTROPHIL COUNT 2.6 10*3/uL Normal 1.4-6.5 [facility] Basophils/100 WBC (Bld) 1.1 % Normal 0.0-2.0 [facility] DTYPE AUTO DIFF Normal [facility] Eosinophils/100 WBC (Bld) 4.1 % Normal 0.0-11.0 [facility] Lymphocytes (Bld) [#/Vol] 1.3 10*3/uL Normal 1.2-3.4 [facility] Lymphocytes/100 WBC (Bld) 26.6 % Normal 20.0-55.0 [facility] Monocytes (Bld) [#/Vol] 0.7 10*3/uL Normal 0.0-0.7 [facility] Monocytes/100 WBC (Bld) 13.9 % High 0.0-10.0 [facility] Neutrophils/100 WBC (Bld) 54.3 % Normal 37.0-75.0 [facility] Erythrocyte distribution width (RBC) [Ratio] 14.7 % High 11.5-14.5 [facility] Hematocrit (Bld) [Volume fraction] 29.3 % Low 36.0-48.0 [facility] Hemoglobin (Bld) [Mass/Vol] 10.0 g/dL Low 12.0-16.0 [facility] MCH (RBC) [Entitic mass] 32.7 pg Normal 26.0-35.0 [facility] MCHC (RBC) [Mass/Vol] 34.3 g/dL Normal 27.0-37.0 [facility] MCV (RBC) [Entitic vol] 95.2 fL Normal 80.0-100.0 [facility] Platelet mean volume (Bld) [Entitic vol] 6.4 fL Low 7.4-11.0 [facility] Platelets (Bld) [#/Vol] 438 10*3/uL High 130-400 [facility] RBC (Bld) [#/Vol] 3.07 10*6/uL Low 4.0-5.4 [facility] WBC (Bld) [#/Vol] 4.7 10*3/uL Normal 3.6-11.0 [facility] Laboratory - Chemistry and C hemistry - challengeon 01-29-2024 Anion gap [Moles/Vol] 3 mmol/L Low [facility] Calcium [Mass/Vol] 8.3 mg/dL Low [facility] Chloride [Moles/Vol] 101 mmol/L [facility] CO2 [Moles/Vol] 30 mmol/L [facility] Creatinine [Mass/Vol] 0.80 mg/dL [facility] CRP [Mass/Vol] 28.9 mg/L High 0 - 10 MG/L [facility] GFR/1.73 sq M.predicted among blacks MDRD (S/P/Bld) [Vol rate/Area] 89 mL/min/{1.73_m2} ml/min/1.73sq .m [facility] GFR/1.73 sq M.predicted among non-blacks MDRD (S/P/Bld) [Vol rate/Area] 73 mL/min/{1.73_m2} ml/min/1.73sq .m [facility] Glucose post fast [Mass/Vol] 94 mg/dL [facility] Potassium [Moles/Vol] 4.2 mmol/L [facility] Sodium [Moles/Vol] 134 mmol/L Low [facility] Urea nitrogen [Mass/Vol] 9 mg/dL [facility] Laboratory - Hematology and Cell countson 01-29-2024 Basophils/100 WBC (Bld) 1.1 % 0.0 - 2.0 % [facility] Differential cell count method Nom (Bld) AUTO DIFF % [facility] Eosinophils (Bld) [#/Vol] 0.2 10*3/uL 0.0 - 0.7 10*3/uL [facility] Eosinophils/100 WBC (Bld) 4.1 % 0.0 - 11.0 % [facility] Erythrocyte distribution width (RBC) [Ratio] 14.7 % High 11.5 - 14.5 % [facility] Hematocrit (Bld) [Volume fraction] 29.3 % Low 36.0 - 48.0 % [facility] Hemoglobin (Bld) [Mass/Vol] 10.0 g/dL Low [facility] Lymphocytes (Bld) [#/Vol] 1.3 10*3/uL 1.2 - 3.4 10*3/uL [facility] Lymphocytes/100 WBC (Bld) 26.6 % 20.0 - 55.0 % [facility] MCH (RBC) [Entitic mass] 32.7 pg 26.0 - 35.[address] [facility] MCHC (RBC) [Mass/Vol] 34.3 g/dL [facility] MCV (RBC) [Entitic vol] 95.[address] [facility] Monocytes (Bld) [#/Vol] 0.7 10*3/uL 0.0 - 0.7 10*3/uL [facility] Monocytes/100 WBC (Bld) 13.9 % High 0.0 - 10.0 % [facility] Neutrophils (Bld) [#/Vol] 2.6 10*3/uL 1.4 - 6.5 10*3/uL [facility] Neutrophils/100 WBC (Bld) 54.3 % 37.0 - 75.0 % [facility] Platelet mean volume (Bld) [Entitic vol] 6.4 fL Low [facility] Platelets (Bld) [#/Vol] 438 10*3/uL High 130 - 400 10*3/uL [facility] RBC (Bld) [#/Vol] 3.07 10*6/uL Low 4.0 - 5.4 10*6/uL [facility] WBC (Bld) [#/Vol] 4.7 10*3/uL 3.6 - 11.0 10*3/uL [facility] No Panel Informationon 01-28 GFR COMMENT Average GFR for 70+ years old = 75. [facility] Interpretation and review of laboratory results Abnormal [facility] ABSOLUTE BASOPHIL COUNT 0.1 10*3/uL 0.0 - 0.2 10*3/uL [facility] Interpretation and review of laboratory results Abnormal [facility] BMP FASTINGon 01-28-2024 Anion gap [Moles/Vol] 3 mmol/L Low 8-16 [facility] Calcium [Mass/Vol] 8.8 mg/dL Normal 8.4-10.2 [facility] Chloride [Moles/Vol] 100 mmol/L Normal 98-107 [facility] Comment on above: Result Comment: Shonda matthews note: Triglyceride levels of 600mg/dL or higher may positively bias chloride results by approximately 2.1 mmol CO2 [Moles/Vol] 33 mmol/L High 22-30 [facility] Creatinine [Mass/Vol] 0.80 mg/dL Normal 0.7-1.2 [facility] EST. GFR, 89 ml/min/1.73sq.m Normal [facility] EST. GFR,Non 73 ml/min/1.73sq.m Normal [facility] GFR Information Average GFR for 70+ years old = 75. 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 Kidney failure, GFR = <15. The GFR estimate is not adjusted for extreme body surface area or acute process, nor has it been validated for women or ethnic groups other than and . Glucose [Mass/Vol] 86 mg/dL Normal 70-100 [facility] Comment on above: Result Comment: NORMAL <100 mg/dL PREDIABETES 101-126 mg/dL DIABETES 126 mg/dL or higher Potassium [Moles/Vol] 4.4 mmol/L Normal 3.5-5.1 [facility] Sodium [Moles/Vol] 136 mmol/L Low 137-145 [facility] Urea nitrogen [Mass/Vol] 11 mg/dL Normal 7-20 [facility] C REACTIVE PROTEINon 024 CRP [Mass/Vol] 30.5 mg/L High 0-10 [facility] CBCon 01-28-2024 ABSOLUTE BAS 0.1 10*3/uL Normal 0.0-0.2 [facility] ABSOLUTE EOS 0.2 10*3/uL Normal 0.0-0.7 [facility] ABSOLUTE NEUTROPHIL COUNT 3.0 10*3/uL Normal 1.4-6.5 [facility] Basophils/100 WBC (Bld) 1.1 % Normal 0.0-2.0 [facility] DTYPE AUTO DIFF Normal [facility] Eosinophils/100 WBC (Bld) 3.2 % Normal 0.0-11.0 [facility] Lymphocytes (Bld) [#/Vol] 1.3 10*3/uL Normal 1.2-3.4 [facility] Lymphocytes/100 WBC (Bld) 25.7 % Normal 20.0-55.0 [facility] Monocytes (Bld) [#/Vol] 0.6 10*3/uL Normal 0.0-0.7 [facility] Monocytes/100 WBC (Bld) 12.0 % High 0.0-10.0 [facility] Neutrophils/100 WBC (Bld) 58.0 % Normal 37.0-75.0 [facility] [facility] Erythrocyte distribution width (RBC) [Ratio] 14.6 % High 11.5-14.5 [facility] Hematocrit (Bld) [Volume fraction] 31.3 % Low 36.0-48.0 [facility] Hemoglobin (Bld) [Mass/Vol] 10.6 g/dL Low 12.0-16.0 [facility] MCH (RBC) [Entitic mass] 32.3 pg Normal 26.0-35.0 [facility] MCHC (RBC) [Mass/Vol] 34.0 g/dL Normal 27.0-37.0 [facility] MCV (RBC) [Entitic vol] 95.0 fL Normal 80.0-100.0 [facility] Platelet mean volume (Bld) [Entitic vol] 6.5 fL Low 7.4-11.0 [facility] Platelets (Bld) [#/Vol] 470 10*3/uL High 130-400 [facility] RBC (Bld) [#/Vol] 3.30 10*6/uL Low 4.0-5.4 [facility] WBC (Bld) [#/Vol] 5.1 10*3/uL Normal 3.6-11.0 [facility] Laboratory - Chemistry and C hemistry - challengeon 01-28-2024 Anion gap [Moles/Vol] 3 mmol/L Low [facility] Calcium [Mass/Vol] 8.8 mg/dL [facility] Chloride [Moles/Vol] 100 mmol/L [facility] CO2 [Moles/Vol] 33 mmol/L High [facility] Creatinine [Mass/Vol] 0.80 mg/dL [facility] CRP [Mass/Vol] 30.5 mg/L High 0 - 10 MG/L [facility] GFR/1.73 sq M.predicted among blacks MDRD (S/P/Bld) [Vol rate/Area] 89 mL/min/{1.73_m2} ml/min/1.73sq .m [facility] GFR/1.73 sq M.predicted among non-blacks MDRD (S/P/Bld) [Vol rate/Area] 73 mL/min/{1.73_m2} ml/min/1.73sq .m [facility] Glucose post fast [Mass/Vol] 86 mg/dL [facility] Potassium [Moles/Vol] 4.4 mmol/L [facility] Sodium [Moles/Vol] 136 mmol/L Low [facility] Urea nitrogen [Mass/Vol] 11 mg/dL [facility] Laboratory - Hematology and Cell countson 01-28-2024 Basophils/100 WBC (Bld) 1.1 % 0.0 - 2.0 % [facility] Differential cell count method Nom (Bld) AUTO DIFF % [facility] Eosinophils (Bld) [#/Vol] 0.2 10*3/uL 0.0 - 0.7 10*3/uL [facility] Eosinophils/100 WBC (Bld) 3.2 % 0.0 - 11.0 % [facility] Erythrocyte distribution width (RBC) [Ratio] 14.6 % High 11.5 - 14.5 % [facility] Hematocrit (Bld) [Volume fraction] 31.3 % Low 36.0 - 48.0 % [facility] Hemoglobin (Bld) [Mass/Vol] 10.6 g/dL Low [facility] Lymphocytes (Bld) [#/Vol] 1.3 10*3/uL 1.2 - 3.4 10*3/uL [facility] Lymphocytes/100 WBC (Bld) 25.7 % 20.0 - 55.0 % [facility] MCH (RBC) [Entitic mass] 32.3 pg 26.0 - 35.[address] [facility] MCHC (RBC) [Mass/Vol] 34.0 g/dL [facility] MCV (RBC) [Entitic vol] 95.[address] [facility] Monocytes (Bld) [#/Vol] 0.6 10*3/uL 0.0 - 0.7 10*3/uL [facility] Monocytes/100 WBC (Bld) 12.0 % High 0.0 - 10.0 % [facility] Neutrophils (Bld) [#/Vol] 3.0 10*3/uL 1.4 - 6.5 10*3/uL [facility] Neutrophils/100 WBC (Bld) 58.0 % 37.0 - 75.0 % [facility] Platelet mean volume (Bld) [Entitic vol] 6.5 fL Low [facility] Platelets (Bld) [#/Vol] 470 10*3/uL High 130 - 400 10*3/uL [facility] RBC (Bld) [#/Vol] 3.30 10*6/uL Low 4.0 - 5.4 10*6/uL [facility] WBC (Bld) [#/Vol] 5.1 10*3/uL 3.6 - 11.0 10*3/uL [facility] No Panel Informationon 01-27 GFR COMMENT Average GFR for 70+ years old = 75. [facility] Interpretation and review of laboratory results Abnormal [facility] ABSOLUTE BASOPHIL COUNT 0.1 10*3/uL 0.0 - 0.2 10*3/uL [facility] Interpretation and review of laboratory results Abnormal [facility] BMP FASTINGon 01-27-2024 Anion gap [Moles/Vol] 3 mmol/L Low 8-16 [facility] Calcium [Mass/Vol] 8.6 mg/dL Normal 8.4-10.2 [facility] Chloride [Moles/Vol] 102 mmol/L Normal 98-107 [facility] Comment on above: Result Comment: Shonda matthews note: Triglyceride levels of 600mg/dL or higher may positively bias chloride results by approximately 2.1 mmol CO2 [Moles/Vol] 30 mmol/L Normal 22-30 [facility] Creatinine [Mass/Vol] 0.70 mg/dL Normal 0.7-1.2 [facility] EST. GFR, 103 ml/min/1.73sq.m Normal [facility] EST. GFR,Non 85 ml/min/1.73sq.m Normal [facility] GFR Information Average GFR for 70+ years old = 75. 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 Kidney failure, GFR = <15. The GFR estimate is not adjusted for extreme body surface area or acute process, nor has it been validated for women or ethnic groups other than and . Glucose [Mass/Vol] 98 mg/dL Normal 70-100 [facility] Comment on above: Result Comment: NORMAL <100 mg/dL PREDIABETES 101-126 mg/dL DIABETES 126 mg/dL or higher Potassium [Moles/Vol] 4.0 mmol/L Normal 3.5-5.1 [facility] Sodium [Moles/Vol] 135 mmol/L Low 137-145 [facility] Urea nitrogen [Mass/Vol] 11 mg/dL Normal 7-20 [facility] C REACTIVE PROTEINon 024 CRP [Mass/Vol] 28.4 mg/L High 0-10 [facility] CBCon 01-27-2024 ABSOLUTE BAS 0.0 10*3/uL Normal 0.0-0.2 [facility] ABSOLUTE EOS 0.2 10*3/uL Normal 0.0-0.7 [facility] ABSOLUTE NEUTROPHIL COUNT 3.3 10*3/uL Normal 1.4-6.5 [facility] Basophils/100 WBC (Bld) 0.9 % Normal 0.0-2.0 [facility] DTYPE AUTO DIFF Normal [facility] Eosinophils/100 WBC (Bld) 3.3 % Normal 0.0-11.0 [facility] Lymphocytes (Bld) [#/Vol] 1.3 10*3/uL Normal 1.2-3.4 [facility] Lymphocytes/100 WBC (Bld) 23.9 % Normal 20.0-55.0 [facility] Monocytes (Bld) [#/Vol] 0.6 10*3/uL Normal 0.0-0.7 [facility] Monocytes/100 WBC (Bld) 11.0 % High 0.0-10.0 [facility] Neutrophils/100 WBC (Bld) 60.9 % Normal 37.0-75.0 [facility] Erythrocyte distribution width (RBC) [Ratio] 14.9 % High 11.5-14.5 [facility] Hematocrit (Bld) [Volume fraction] 30.7 % Low 36.0-48.0 [facility] Hemoglobin (Bld) [Mass/Vol] 10.3 g/dL Low 12.0-16.0 [facility] MCH (RBC) [Entitic mass] 32.2 pg Normal 26.0-35.0 [facility] MCHC (RBC) [Mass/Vol] 33.4 g/dL Normal 27.0-37.0 [facility] MCV (RBC) [Entitic vol] 96.3 fL Normal 80.0-100.0 [facility] Platelet mean volume (Bld) [Entitic vol] 6.6 fL Low 7.4-11.0 [facility] Platelets (Bld) [#/Vol] 438 10*3/uL High 130-400 [facility] RBC (Bld) [#/Vol] 3.19 10*6/uL Low 4.0-5.4 [facility] WBC (Bld) [#/Vol] 5.4 10*3/uL Normal 3.6-11.0 [facility] Laboratory - Chemistry and C hemistry - challengeon 01-27-2024 Anion gap [Moles/Vol] 3 mmol/L Low [facility] Calcium [Mass/Vol] 8.6 mg/dL [facility] Chloride [Moles/Vol] 102 mmol/L [facility] CO2 [Moles/Vol] 30 mmol/L [facility] Creatinine [Mass/Vol] 0.70 mg/dL [facility] CRP [Mass/Vol] 28.4 mg/L High 0 - 10 MG/L [facility] GFR/1.73 sq M.predicted among blacks MDRD (S/P/Bld) [Vol rate/Area] 103 mL/min/{1.73_m2} ml/min/1.73sq .m [facility] GFR/1.73 sq M.predicted among non-blacks MDRD (S/P/Bld) [Vol rate/Area] 85 mL/min/{1.73_m2} ml/min/1.73sq .m [facility] Glucose post fast [Mass/Vol] 98 mg/dL [facility] Potassium [Moles/Vol] 4.0 mmol/L [facility] Sodium [Moles/Vol] 135 mmol/L Low [facility] Urea nitrogen [Mass/Vol] 11 mg/dL [facility] Laboratory - Hematology and Cell countson 01-27-2024 Basophils/100 WBC (Bld) 0.9 % 0.0 - 2.0 % [facility] Differential cell count method Nom (Bld) AUTO DIFF % [facility] Eosinophils (Bld) [#/Vol] 0.2 10*3/uL 0.0 - 0.7 10*3/uL [facility] Eosinophils/100 WBC (Bld) 3.3 % 0.0 - 11.0 % [facility] Erythrocyte distribution width (RBC) [Ratio] 14.9 % High 11.5 - 14.5 % [facility] Hematocrit (Bld) [Volume fraction] 30.7 % Low 36.0 - 48.0 % [facility] Hemoglobin (Bld) [Mass/Vol] 10.3 g/dL Low [facility] Lymphocytes (Bld) [#/Vol] 1.3 10*3/uL 1.2 - 3.4 10*3/uL [facility] Lymphocytes/100 WBC (Bld) 23.9 % 20.0 - 55.0 % [facility] MCH (RBC) [Entitic mass] 32.2 pg 26.0 - 35.[address] [facility] MCHC (RBC) [Mass/Vol] 33.4 g/dL [facility] MCV (RBC) [Entitic vol] 96.[address] [facility] Monocytes (Bld) [#/Vol] 0.6 10*3/uL 0.0 - 0.7 10*3/uL [facility] Monocytes/100 WBC (Bld) 11.0 % High 0.0 - 10.0 % [facility] Neutrophils (Bld) [#/Vol] 3.3 10*3/uL 1.4 - 6.5 10*3/uL [facility] Neutrophils/100 WBC (Bld) 60.9 % 37.0 - 75.0 % [facility] Platelet mean volume (Bld) [Entitic vol] 6.6 fL Low [facility] Platelets (Bld) [#/Vol] 438 10*3/uL High 130 - 400 10*3/uL [facility] RBC (Bld) [#/Vol] 3.19 10*6/uL Low 4.0 - 5.4 10*6/uL [facility] WBC (Bld) [#/Vol] 5.4 10*3/uL 3.6 - 11.0 10*3/uL [facility] No Panel Informationon 01-26 GFR COMMENT Average GFR for 70+ years old = 75. [facility] Interpretation and review of laboratory results Abnormal [facility] ABSOLUTE BASOPHIL COUNT 0.0 10*3/uL 0.0 - 0.2 10*3/uL [facility] Interpretation and review of laboratory results Abnormal [facility] BMP FASTINGon 01-26-2024 Anion gap [Moles/Vol] 1 mmol/L Low 8-16 [facility] Calcium [Mass/Vol] 8.2 mg/dL Low 8.4-10.2 [facility] Chloride [Moles/Vol] 102 mmol/L Normal 98-107 [facility] Comment on above: Result Comment: Shonda matthews note: Triglyceride levels of 600mg/dL or higher may positively bias chloride results by approximately 2.1 mmol CO2 [Moles/Vol] 31 mmol/L High 22-30 [facility] Creatinine [Mass/Vol] 0.70 mg/dL Normal 0.7-1.2 [facility] EST. GFR, 103 ml/min/1.73sq.m Normal [facility] EST. GFR,Non 85 ml/min/1.73sq.m Normal [facility] GFR Information Average GFR for 70+ years old = 75. 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 Kidney failure, GFR = <15. The GFR estimate is not adjusted for extreme body surface area or acute process, nor has it been validated for women or ethnic groups other than and . Glucose [Mass/Vol] 109 mg/dL High 70-100 [facility] Comment on above: Result Comment: NORMAL <100 mg/dL PREDIABETES 101-126 mg/dL DIABETES 126 mg/dL or higher Potassium [Moles/Vol] 3.9 mmol/L Normal 3.5-5.1 [facility] Sodium [Moles/Vol] 134 mmol/L Low 137-145 [facility] Urea nitrogen [Mass/Vol] 12 mg/dL Normal 7-20 [facility] C REACTIVE PROTEINon 024 CRP [Mass/Vol] 28.4 mg/L High 0-10 [facility] CBCon 01-26-2024 ABSOLUTE BAS 0.0 10*3/uL Normal 0.0-0.2 [facility] ABSOLUTE EOS 0.2 10*3/uL Normal 0.0-0.7 [facility] ABSOLUTE NEUTROPHIL COUNT 3.7 10*3/uL Normal 1.4-6.5 [facility] Basophils/100 WBC (Bld) 0.9 % Normal 0.0-2.0 [facility] DTYPE AUTO DIFF Normal [facility] Eosinophils/100 WBC (Bld) 2.8 % Normal 0.0-11.0 [facility] Lymphocytes (Bld) [#/Vol] 1.2 10*3/uL Normal 1.2-3.4 [facility] Lymphocytes/100 WBC (Bld) 21.0 % Normal 20.0-55.0 [facility] Monocytes (Bld) [#/Vol] 0.7 10*3/uL Normal 0.0-0.7 [facility] Monocytes/100 WBC (Bld) 11.6 % High 0.0-10.0 [facility] Neutrophils/100 WBC (Bld) 63.7 % Normal 37.0-75.0 [facility] Erythrocyte distribution width (RBC) [Ratio] 14.6 % High 11.5-14.5 [facility] Hematocrit (Bld) [Volume fraction] 29.0 % Low 36.0-48.0 [facility] Hemoglobin (Bld) [Mass/Vol] 9.8 g/dL Low 12.0-16.0 [facility] MCH (RBC) [Entitic mass] 32.0 pg Normal 26.0-35.0 [facility] MCHC (RBC) [Mass/Vol] 33.6 g/dL Normal 27.0-37.0 [facility] MCV (RBC) [Entitic vol] 95.3 fL Normal 80.0-100.0 [facility] Platelet mean volume (Bld) [Entitic vol] 6.7 fL Low 7.4-11.0 [facility] Platelets (Bld) [#/Vol] 440 10*3/uL High 130-400 [facility] RBC (Bld) [#/Vol] 3.05 10*6/uL Low 4.0-5.4 [facility] WBC (Bld) [#/Vol] 5.9 10*3/uL Normal 3.6-11.0 [facility] Laboratory - Chemistry and C hemistry - challengeon 01-26-2024 Anion gap [Moles/Vol] 1 mmol/L Low [facility] Calcium [Mass/Vol] 8.2 mg/dL Low [facility] Chloride [Moles/Vol] 102 mmol/L [facility] CO2 [Moles/Vol] 31 mmol/L High [facility] Creatinine [Mass/Vol] 0.70 mg/dL [facility] CRP [Mass/Vol] 28.4 mg/L High 0 - 10 MG/L [facility] GFR/1.73 sq M.predicted among blacks MDRD (S/P/Bld) [Vol rate/Area] 103 mL/min/{1.73_m2} ml/min/1.73sq .m [facility] GFR/1.73 sq M.predicted among non-blacks MDRD (S/P/Bld) [Vol rate/Area] 85 mL/min/{1.73_m2} ml/min/1.73sq .m [facility] Glucose post fast [Mass/Vol] 109 mg/dL High [facility] Potassium [Moles/Vol] 3.9 mmol/L [facility] Sodium [Moles/Vol] 134 mmol/L Low [facility] Urea nitrogen [Mass/Vol] 12 mg/dL [facility] Laboratory - Hematology and Cell countson 01-26-2024 Basophils/100 WBC (Bld) 0.9 % 0.0 - 2.0 % [facility] Differential cell count method Nom (Bld) AUTO DIFF % [facility] Eosinophils (Bld) [#/Vol] 0.2 10*3/uL 0.0 - 0.7 10*3/uL [facility] Eosinophils/100 WBC (Bld) 2.8 % 0.0 - 11.0 % [facility] Erythrocyte distribution width (RBC) [Ratio] 14.6 % High 11.5 - 14.5 % [facility] Hematocrit (Bld) [Volume fraction] 29.0 % Low 36.0 - 48.0 % [facility] Hemoglobin (Bld) [Mass/Vol] 9.8 g/dL Low [facility] Lymphocytes (Bld) [#/Vol] 1.2 10*3/uL 1.2 - 3.4 10*3/uL [facility] Lymphocytes/100 WBC (Bld) 21.0 % 20.0 - 55.0 % [facility] MCH (RBC) [Entitic mass] 32.0 pg 26.0 - 35.[address] [facility] MCHC (RBC) [Mass/Vol] 33.6 g/dL [facility] MCV (RBC) [Entitic vol] 95.[address] [facility] Monocytes (Bld) [#/Vol] 0.7 10*3/uL 0.0 - 0.7 10*3/uL [facility] Monocytes/100 WBC (Bld) 11.6 % High 0.0 - 10.0 % [facility] Neutrophils (Bld) [#/Vol] 3.7 10*3/uL 1.4 - 6.5 10*3/uL [facility] Neutrophils/100 WBC (Bld) 63.7 % 37.0 - 75.0 % [facility] Platelet mean volume (Bld) [Entitic vol] 6.7 fL Low [facility] Platelets (Bld) [#/Vol] 440 10*3/uL High 130 - 400 10*3/uL [facility] RBC (Bld) [#/Vol] 3.05 10*6/uL Low 4.0 - 5.4 10*6/uL [facility] WBC (Bld) [#/Vol] 5.9 10*3/uL 3.6 - 11.0 10*3/uL [facility] No Panel Informationon 01-25 GFR COMMENT Average GFR for 70+ years old = 75. [facility] Interpretation and review of laboratory results Abnormal [facility] ABSOLUTE BASOPHIL COUNT 0.0 10*3/uL 0.0 - 0.2 10*3/uL [facility] Interpretation and review of laboratory results Abnormal [facility] BMP FASTINGon 01-25-2024 Anion gap [Moles/Vol] 3 mmol/L Low 8-16 [facility] Calcium [Mass/Vol] 8.3 mg/dL Low 8.4-10.2 [facility] Chloride [Moles/Vol] 101 mmol/L Normal 98-107 [facility] Comment on above: Result Comment: Shonda matthews note: Triglyceride levels of 600mg/dL or higher may positively bias chloride results by approximately 2.1 mmol CO2 [Moles/Vol] 32 mmol/L High 22-30 [facility] Creatinine [Mass/Vol] 0.70 mg/dL Normal 0.7-1.2 [facility] EST. GFR, 103 ml/min/1.73sq.m [facility] EST. GFR,Non 85 ml/min/1.73sq.m [facility] GFR Information Average GFR for 70+ years old = 75. 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 Kidney failure, GFR = <15. The GFR estimate is not adjusted for extreme body surface area or acute process, nor has it been validated for women or ethnic groups other than and . Glucose [Mass/Vol] 92 mg/dL Normal 70-100 [facility] Comment on above: Result Comment: NORMAL <100 mg/dL PREDIABETES 101-126 mg/dL DIABETES 126 mg/dL or higher Potassium [Moles/Vol] 3.8 mmol/L Normal 3.5-5.1 [facility] Sodium [Moles/Vol] 136 mmol/L Low 137-145 [facility] Urea nitrogen [Mass/Vol] 6 mg/dL Low 7-20 [facility] C REACTIVE PROTEINon 024 CRP [Mass/Vol] 33.6 mg/L High 0-10 [facility] CBCon 01-25-2024 ABSOLUTE BAS 0.0 10*3/uL Normal 0.0-0.2 [facility] ABSOLUTE EOS 0.2 10*3/uL Normal 0.0-0.7 [facility] ABSOLUTE NEUTROPHIL COUNT 3.7 10*3/uL Normal 1.4-6.5 [facility] Basophils/100 WBC (Bld) 0.7 % Normal 0.0-2.0 [facility] DTYPE AUTO DIFF Normal [facility] Eosinophils/100 WBC (Bld) 2.6 % Normal 0.0-11.0 [facility] Lymphocytes (Bld) [#/Vol] 1.2 10*3/uL Normal 1.2-3.4 [facility] Lymphocytes/100 WBC (Bld) 21.6 % Normal 20.0-55.0 [facility] Monocytes (Bld) [#/Vol] 0.6 10*3/uL Normal 0.0-0.7 [facility] Monocytes/100 WBC (Bld) 11.3 % High 0.0-10.0 [facility] Neutrophils/100 WBC (Bld) 63.8 % Normal 37.0-75.0 [facility] Erythrocyte distribution width (RBC) [Ratio] 14.4 % Normal 11.5-14.5 [facility] Hematocrit (Bld) [Volume fraction] 29.4 % Low 36.0-48.0 [facility] Hemoglobin (Bld) [Mass/Vol] 10.1 g/dL Low 12.0-16.0 [facility] MCH (RBC) [Entitic mass] 32.5 pg Normal 26.0-35.0 [facility] MCHC (RBC) [Mass/Vol] 34.3 g/dL Normal 27.0-37.0 [facility] MCV (RBC) [Entitic vol] 94.8 fL Normal 80.0-100.0 [facility] Platelet mean volume (Bld) [Entitic vol] 6.7 fL Low 7.4-11.0 [facility] Platelets (Bld) [#/Vol] 440 10*3/uL High 130-400 [facility] RBC (Bld) [#/Vol] 3.10 10*6/uL Low 4.0-5.4 [facility] WBC (Bld) [#/Vol] 5.7 10*3/uL Normal 3.6-11.0 [facility] Laboratory - Chemistry and C hemistry - challengeon 01-25-2024 Anion gap [Moles/Vol] 3 mmol/L Low [facility] Calcium [Mass/Vol] 8.3 mg/dL Low [facility] Chloride [Moles/Vol] 101 mmol/L [facility] CO2 [Moles/Vol] 32 mmol/L High [facility] Creatinine [Mass/Vol] 0.70 mg/dL [facility] CRP [Mass/Vol] 33.6 mg/L High 0 - 10 MG/L [facility] GFR/1.73 sq M.predicted among blacks MDRD (S/P/Bld) [Vol rate/Area] 103 mL/min/{1.73_m2} ml/min/1.73sq .m [facility] GFR/1.73 sq M.predicted among non-blacks MDRD (S/P/Bld) [Vol rate/Area] 85 mL/min/{1.73_m2} ml/min/1.73sq .m [facility] Glucose post fast [Mass/Vol] 92 mg/dL [facility] Potassium [Moles/Vol] 3.8 mmol/L [facility] Sodium [Moles/Vol] 136 mmol/L Low [facility] Urea nitrogen [Mass/Vol] 6 mg/dL Low [facility] Laboratory - Hematology and Cell countson 01-25-2024 Basophils/100 WBC (Bld) 0.7 % 0.0 - 2.0 % [facility] Differential cell count method Nom (Bld) AUTO DIFF % [facility] Eosinophils (Bld) [#/Vol] 0.2 10*3/uL 0.0 - 0.7 10*3/uL [facility] Eosinophils/100 WBC (Bld) 2.6 % 0.0 - 11.0 % [facility] Erythrocyte distribution width (RBC) [Ratio] 14.4 % 11.5 - 14.5 % [facility] Hematocrit (Bld) [Volume fraction] 29.4 % Low 36.0 - 48.0 % [facility] Hemoglobin (Bld) [Mass/Vol] 10.1 g/dL Low [facility] Lymphocytes (Bld) [#/Vol] 1.2 10*3/uL 1.2 - 3.4 10*3/uL [facility] Lymphocytes/100 WBC (Bld) 21.6 % 20.0 - 55.0 % [facility] MCH (RBC) [Entitic mass] 32.5 pg 26.0 - 35.[address] [facility] MCHC (RBC) [Mass/Vol] 34.3 g/dL [facility] MCV (RBC) [Entitic vol] 94.[address] [facility] Monocytes (Bld) [#/Vol] 0.6 10*3/uL 0.0 - 0.7 10*3/uL [facility] Monocytes/100 WBC (Bld) 11.3 % High 0.0 - 10.0 % [facility] Neutrophils (Bld) [#/Vol] 3.7 10*3/uL 1.4 - 6.5 10*3/uL [facility] Neutrophils/100 WBC (Bld) 63.8 % 37.0 - 75.0 % [facility] Platelet mean volume (Bld) [Entitic vol] 6.7 fL Low [facility] Platelets (Bld) [#/Vol] 440 10*3/uL High 130 - 400 10*3/uL [facility] RBC (Bld) [#/Vol] 3.10 10*6/uL Low 4.0 - 5.4 10*6/uL [facility] WBC (Bld) [#/Vol] 5.7 10*3/uL 3.6 - 11.0 10*3/uL [facility] No Panel Informationon 01-24 GFR COMMENT Average GFR for 70+ years old = 75. [facility] Interpretation and review of laboratory results Abnormal [facility] ABSOLUTE BASOPHIL COUNT 0.0 10*3/uL 0.0 - 0.2 10*3/uL [facility] Interpretation and review of laboratory results Abnormal [facility] BMP FASTINGon 01-24-2024 Anion gap [Moles/Vol] 2 mmol/L Low 8-16 [facility] Calcium [Mass/Vol] 8.5 mg/dL Normal 8.4-10.2 [facility] Chloride [Moles/Vol] 102 mmol/L Normal 98-107 [facility] Comment on above: Result Comment: Plea note: Triglyceride levels of 600mg/dL or higher may positively bias chloride results by approximately 2.1 mmol CO2 [Moles/Vol] 31 mmol/L High 22-30 [facility] Creatinine [Mass/Vol] 0.70 mg/dL Normal 0.7-1.2 [facility] EST. GFR, 103 ml/min/1.73sq.m [facility] EST. GFR,Non 85 ml/min/1.73sq.m [facility] GFR Information Average GFR for 70+ years old = 75. 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 Kidney failure, GFR = <15. The GFR estimate is not adjusted for extreme body surface area or acute process, nor has it been validated for women or ethnic groups other than and . Glucose [Mass/Vol] 104 mg/dL High 70-100 [facility] Comment on above: Result Comment: NORMAL <100 mg/dL PREDIABETES 101-126 mg/dL DIABETES 126 mg/dL or higher Potassium [Moles/Vol] 3.5 mmol/L Normal 3.5-5.1 [facility] Sodium [Moles/Vol] 135 mmol/L Low 137-145 [facility] Urea nitrogen [Mass/Vol] 8 mg/dL Normal 7-20 [facility] C DIFFICILE DNAon 01-24-2024 C. DIFF 027 Negative Normal NEGATIVE [facility] Comment on above: Result Comment: Hype rvirulent C. difficile strain 027/NAP1/BI TESTING PERFORMED BY PCR Performed By: #### G IPAN ####[place] [address] TOXIGENIC C. DIFF Negative Normal NEGATIVE [facility] Comment on above: Performed By: #### G IPAN ####Testing performed at [place] [id number] C REACTIVE PROTEINon 024 CRP [Mass/Vol] 46.5 mg/L High 0-10 [facility] CBCon 01-24-2024 ABSOLUTE BAS 0.0 10*3/uL Normal 0.0-0.2 [facility] ABSOLUTE EOS 0.1 10*3/uL Normal 0.0-0.7 [facility] ABSOLUTE NEUTROPHIL COUNT 4.2 10*3/uL Normal 1.4-6.5 [facility] Basophils/100 WBC (Bld) 0.7 % Normal 0.0-2.0 [facility] DTYPE AUTO DIFF Normal [facility] Eosinophils/100 WBC (Bld) 2.2 % Normal 0.0-11.0 [facility] Lymphocytes (Bld) [#/Vol] 1.2 10*3/uL Normal 1.2-3.4 [facility] Lymphocytes/100 WBC (Bld) 19.3 % Low 20.0-55.0 [facility] Monocytes (Bld) [#/Vol] 0.7 10*3/uL Normal 0.0-0.7 [facility] Monocytes/100 WBC (Bld) 10.6 % High 0.0-10.0 [facility] Neutrophils/100 WBC (Bld) 67.2 % Normal 37.0-75.0 [facility] Erythrocyte distribution width (RBC) [Ratio] 14.5 % Normal 11.5-14.5 [facility] Hematocrit (Bld) [Volume fraction] 29.3 % Low 36.0-48.0 [facility] Hemoglobin (Bld) [Mass/Vol] 10.1 g/dL Low 12.0-16.0 [facility] MCH (RBC) [Entitic mass] 32.7 pg Normal 26.0-35.0 [facility] MCHC (RBC) [Mass/Vol] 34.4 g/dL Normal 27.0-37.0 [facility] MCV (RBC) [Entitic vol] 95.1 fL Normal 80.0-100.0 [facility] Platelet mean volume (Bld) [Entitic vol] 6.8 fL Low 7.4-11.0 [facility] Platelets (Bld) [#/Vol] 424 10*3/uL High 130-400 [facility] RBC (Bld) [#/Vol] 3.08 10*6/uL Low 4.0-5.4 [facility] WBC (Bld) [#/Vol] 6.2 10*3/uL Normal 3.6-11.0 [facility] GI PANELon 01-24-2024 ADENOVIRUS F 40/41 Not detected Normal NOT DETECTED [facility] Comment on above: Result Comment: Mandi baugh: Nucleic acid may persist in vivo independently of organism viability. Additionally, some organisms may be carried asymptomatically. Detection of target organisms does not imply that the corresponding organisms are infectious or are the causative agent of clinical symptoms. Results must be correlated with clinical history, epidemiological data and other clinical information available. Testing performed at [place] [address] Performed By: #### G IPAN ####[place] [address] ASTROVIRUS Not detected Normal NOT DETECTED [facility] Comment on above: Performed By: #### G IPAN ####Testing performed at [address] [place] [address] CAMPYLOBACTER Not detected Normal NOT DETECTED [facility] Comment on above: Performed By: #### G IPAN ####Testing performed at [address] [place] [address] CRYPTOSPORIDIUM Not detected Normal NOT DETECTED [facility] Comment on above: Performed By: #### G IPAN ####Testing performed at [place] [id number] CYCLOSPORA CAYETANENSIS Not detected Normal NOT DETECTED [facility] Comment on above: Performed By: #### G IPAN ####[place] [address] ENTAMOEBA HISTOLYTICA Not detected Normal NOT DETECTED [facility] Comment on above: Performed By: #### G IPAN ####Testing performed at [place] [id number] ENTEROAGGREGATIVE E COLI Not detected Normal NOT DETECTED [facility] Comment on above: Performed By: #### G IPAN ####Testing performed at [place] [id number] ENTEROTOXIGENIC E COLI Not detected Normal NOT DETECTED [facility] Comment on above: Performed By: #### G IPAN ####Testing performed at [address] [place] [address] ENTROPATHOGENIC E COLI Not detected Normal NOT DETECTED [facility] Comment on above: Performed By: #### G IPAN ####Testing performed at [address] [address] GIARDIA LAMBLIA Not detected Normal NOT DETECTED [facility] Comment on above: Performed By: #### G IPAN ####Testing performed at [address] [place] [address] NOROVIRUS GI/GII Not detected Normal NOT DETECTED [facility] Comment on above: Performed By: #### G IPAN ####Testing performed at [address] [place] [address] PLESIOMONAS SHIGELLOIDES Not detected Normal NOT DETECTED [facility] Comment on above: Performed By: #### G IPAN ####[place] [address] ROTAVIRUS A Not detected Normal NOT DETECTED [facility] Comment on above: Performed By: #### G IPAN ####[place] [address] SALMONELLA Not detected Normal NOT DETECTED [facility] Comment on above: Performed By: #### G IPAN ####[place] [address] SAPOVIRUS Not detected Normal NOT DETECTED [facility] Comment on above: Performed By: #### G IPAN ####[place] [address] SHIGA-LIKE TOXIN-PRODUCING E COLI Not detected Normal NOT DETECTED [facility] Comment on above: Performed By: #### G IPAN ####[place] [address] SHIGELLA/ENTEROINVASI VE E COLI Not detected Normal NOT DETECTED [facility] Comment on above: Performed By: #### G IPAN ####[place] [address] VIBRIO Not detected Normal NOT DETECTED [facility] Comment on above: Performed By: #### G IPAN ####[place] [address] VIBRIO CHOLERAE Not detected Normal NOT DETECTED [facility] Comment on above: Performed By: #### G IPAN ####[place] [address] YESINIA ENTEROCOLITICA Not detected Normal NOT DETECTED [facility] Comment on above: Performed By: #### G IPAN ####[place] [address] Laboratory - Chemistry and C hemistry - challengeon 01-24-2024 Anion gap [Moles/Vol] 2 mmol/L Low [facility] Calcium [Mass/Vol] 8.5 mg/dL [facility] Chloride [Moles/Vol] 102 mmol/L [facility] CO2 [Moles/Vol] 31 mmol/L High [facility] Creatinine [Mass/Vol] 0.70 mg/dL [facility] CRP [Mass/Vol] 46.5 mg/L High 0 - 10 MG/L [facility] GFR/1.73 sq M.predicted among blacks MDRD (S/P/Bld) [Vol rate/Area] 103 mL/min/{1.73_m2} ml/min/1.73sq .m [facility] GFR/1.73 sq M.predicted among non-blacks MDRD (S/P/Bld) [Vol rate/Area] 85 mL/min/{1.73_m2} ml/min/1.73sq .m [facility] Glucose post fast [Mass/Vol] 104 mg/dL High [facility] Potassium [Moles/Vol] 3.5 mmol/L [facility] Sodium [Moles/Vol] 135 mmol/L Low [facility] Urea nitrogen [Mass/Vol] 8 mg/dL [facility] Laboratory - Hematology and Cell countson 01-24-2024 Basophils/100 WBC (Bld) 0.7 % 0.0 - 2.0 % [facility] Differential cell count method Nom (Bld) AUTO DIFF % [facility] Eosinophils (Bld) [#/Vol] 0.1 10*3/uL 0.0 - 0.7 10*3/uL [facility] Eosinophils/100 WBC (Bld) 2.2 % 0.0 - 11.0 % [facility] Erythrocyte distribution width (RBC) [Ratio] 14.5 % 11.5 - 14.5 % [facility] Hematocrit (Bld) [Volume fraction] 29.3 % Low 36.0 - 48.0 % [facility] Hemoglobin (Bld) [Mass/Vol] 10.1 g/dL Low [facility] Lymphocytes (Bld) [#/Vol] 1.2 10*3/uL 1.2 - 3.4 10*3/uL [facility] Lymphocytes/100 WBC (Bld) 19.3 % Low 20.0 - 55.0 % [facility] MCH (RBC) [Entitic mass] 32.7 pg 26.0 - 35.[address] [facility] MCHC (RBC) [Mass/Vol] 34.4 g/dL [facility] MCV (RBC) [Entitic vol] 95.[address] [facility] Monocytes (Bld) [#/Vol] 0.7 10*3/uL 0.0 - 0.7 10*3/uL [facility] Monocytes/100 WBC (Bld) 10.6 % High 0.0 - 10.0 % [facility] Neutrophils (Bld) [#/Vol] 4.2 10*3/uL 1.4 - 6.5 10*3/uL [facility] Neutrophils/100 WBC (Bld) 67.2 % 37.0 - 75.0 % [facility] Platelet mean volume (Bld) [Entitic vol] 6.8 fL Low [facility] Platelets (Bld) [#/Vol] 424 10*3/uL High 130 - 400 10*3/uL [facility] RBC (Bld) [#/Vol] 3.08 10*6/uL Low 4.0 - 5.4 10*6/uL [facility] WBC (Bld) [#/Vol] 6.2 10*3/uL 3.6 - 11.0 10*3/uL [facility] Laboratory - Microbiology an d Antimicrobial susceptibilityon 01-24-2024 Adenovirus 40+41 DNA SMILEY+non-probe Ql (Stl) Not detected NOT DETECTED [facility] Astrovirus subtypes 1-8 RNA SMILEY+non-probe Ql (Stl) Not detected NOT DETECTED [facility] C. cayetanensis DNA SMILEY+probe Ql (Unsp spec) Not detected NOT DETECTED [facility] C. coli+jejuni+upsaliens is DNA SMILEY+non-probe Ql (Stl) Not detected NOT DETECTED [facility] Cryptosporidium sp DNA SMILEY+probe Ql (Unsp spec) Not detected NOT DETECTED [facility] E. coli enteroaggregative Kandis plasmid aggR+aatA genes SMILEY+non-probe Ql (Stl) Not detected NOT DETECTED [facility] E. histolytica DNA SMILEY+probe Ql (Unsp spec) Not detected NOT DETECTED [facility] G. lamblia DNA SMILEY+non-probe Ql (Stl) Not detected NOT DETECTED [facility] P. shigelloides DNA SMILEY+non-probe Ql (Stl) Not detected NOT DETECTED [facility] Rotavirus A RNA SMILEY+non-probe Ql (Stl) Not detected NOT DETECTED [facility] S. enterica+bongori DNA SMILEY+non-probe Ql (Stl) Not detected NOT DETECTED [facility] V. cholerae DNA SMILEY+non-probe Ql (Stl) Not detected NOT DETECTED [facility] V. cholerae+parahaemolyt icus+vulnificus DNA SMILEY+non-probe Ql (Stl) Not detected NOT DETECTED [facility] Y. enterocolitica DNA SMILEY+non-probe Ql (Stl) Not detected NOT DETECTED [facility] No Panel Informationon 01-23 E COLI (EIEC) Not detected NOT DETECTED [facility] E COLI (EPEC) Not detected NOT DETECTED [facility] E COLI (ETEC) Not detected NOT DETECTED [facility] NOROVIRUS RNA Not detected NOT DETECTED [facility] SAPOVIRUS Not detected NOT DETECTED [facility] SHIGA TOXIN E. COLI Not detected NOT DETECTED A [facility] C. Diff 027 Negative NEGATIVE [facility] C.DIFFICILE TOXIN,PCR Negative NEGATIVE [facility] GFR COMMENT Average GFR for 70+ years old = 75. [facility] Interpretation and review of laboratory results Abnormal [facility] ABSOLUTE BASOPHIL COUNT 0.0 10*3/uL 0.0 - 0.2 10*3/uL [facility] Interpretation and review of laboratory results Abnormal [facility] BMP FASTINGon 01-23-2024 Anion gap [Moles/Vol] 1 mmol/L Low 8-16 [facility] Calcium [Mass/Vol] 8.5 mg/dL Normal 8.4-10.2 [facility] Chloride [Moles/Vol] 101 mmol/L Normal 98-107 [facility] Comment on above: Result Comment: Shonda matthews note: Triglyceride levels of 600mg/dL or higher may positively bias chloride results by approximately 2.1 mmol CO2 [Moles/Vol] 33 mmol/L High 22-30 [facility] Creatinine [Mass/Vol] 0.60 mg/dL Low 0.7-1.2 [facility] EST. GFR, 123 ml/min/1.73sq.m Normal [facility] EST. GFR,Non 102 ml/min/1.73sq.m Normal [facility] GFR Information Average GFR for 70+ years old = 75. 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 Kidney failure, GFR = <15. The GFR estimate is not adjusted for extreme body surface area or acute process, nor has it been validated for women or ethnic groups other than and . Glucose [Mass/Vol] 96 mg/dL Normal 70-100 [facility] Comment on above: Result Comment: NORMAL <100 mg/dL PREDIABETES 101-126 mg/dL DIABETES 126 mg/dL or higher Potassium [Moles/Vol] 3.7 mmol/L Normal 3.5-5.1 [facility] Sodium [Moles/Vol] 135 mmol/L Low 137-145 [facility] Urea nitrogen [Mass/Vol] 8 mg/dL Normal 7-20 [facility] C REACTIVE PROTEINon 024 CRP [Mass/Vol] 42.0 mg/L High 0-10 [facility] CBCon 01-23-2024 ABSOLUTE BAS 0.0 10*3/uL Normal 0.0-0.2 [facility] ABSOLUTE EOS 0.1 10*3/uL Normal 0.0-0.7 [facility] ABSOLUTE NEUTROPHIL COUNT 4.0 10*3/uL Normal 1.4-6.5 [facility] Basophils/100 WBC (Bld) 0.8 % Normal 0.0-2.0 [facility] DTYPE AUTO DIFF Normal [facility] Eosinophils/100 WBC (Bld) 2.4 % Normal 0.0-11.0 [facility] Lymphocytes (Bld) [#/Vol] 1.2 10*3/uL Normal 1.2-3.4 [facility] Lymphocytes/100 WBC (Bld) 19.6 % Low 20.0-55.0 [facility] Monocytes (Bld) [#/Vol] 0.6 10*3/uL Normal 0.0-0.7 [facility] Monocytes/100 WBC (Bld) 9.8 % Normal 0.0-10.0 [facility] Neutrophils/100 WBC (Bld) 67.4 % Normal 37.0-75.0 [facility] Erythrocyte distribution width (RBC) [Ratio] 13.9 % Normal 11.5-14.5 [facility] Hematocrit (Bld) [Volume fraction] 29.1 % Low 36.0-48.0 [facility] Hemoglobin (Bld) [Mass/Vol] 10.0 g/dL Low 12.0-16.0 [facility] MCH (RBC) [Entitic mass] 32.2 pg Normal 26.0-35.0 [facility] MCHC (RBC) [Mass/Vol] 34.3 g/dL Normal 27.0-37.0 [facility] MCV (RBC) [Entitic vol] 94.0 fL Normal 80.0-100.0 [facility] Platelet mean volume (Bld) [Entitic vol] 6.7 fL Low 7.4-11.0 [facility] Platelets (Bld) [#/Vol] 425 10*3/uL High 130-400 [facility] RBC (Bld) [#/Vol] 3.10 10*6/uL Low 4.0-5.4 [facility] WBC (Bld) [#/Vol] 6.0 10*3/uL Normal 3.6-11.0 [facility] LIPASE,SERUMon 01-23-2024 LIPASE,SERUM 32 U/L Normal 23-300 [facility] LIVER PANELon 01-23-2024 Albumin [Mass/Vol] 2.6 g/dL Low 3.5-5.0 [facility] ALP [Catalytic activity/Vol] 99 U/L Normal 38-126 [facility] ALT [Catalytic activity/Vol] 10 U/L Normal <35 [facility] AST [Catalytic activity/Vol] 25 U/L Normal 14-36 [facility] Bilirubin [Mass/Vol] 0.3 mg/dL Normal 0.2-1.3 [facility] Bilirubin.indirect [Mass/Vol] 0.3 mg/dL Normal 0-0.4 [facility] Protein [Mass/Vol] 5.6 g/dL Low 6.3-8.2 [facility] Laboratory - Chemistry and C hemistry - challengeon 01-23-2024 Albumin [Mass/Vol] 2.6 g/dL Low [facility] ALP [Catalytic activity/Vol] 99 U/L [facility] ALT [Catalytic activity/Vol] 10 U/L NINF [facility] Anion gap [Moles/Vol] 1 mmol/L Low [facility] AST [Catalytic activity/Vol] 25 U/L [facility] Bilirubin [Mass/Vol] 0.3 mg/dL [facility] Bilirubin.direct [Mass/Vol] 0.3 mg/dL [facility] Calcium [Mass/Vol] 8.5 mg/dL [facility] Chloride [Moles/Vol] 101 mmol/L [facility] CO2 [Moles/Vol] 33 mmol/L High [facility] Creatinine [Mass/Vol] 0.60 mg/dL Low [facility] CRP [Mass/Vol] 42.0 mg/L High 0 - 10 MG/L [facility] GFR/1.73 sq M.predicted among blacks MDRD (S/P/Bld) [Vol rate/Area] 123 mL/min/{1.73_m2} ml/min/1.73sq .m [facility] GFR/1.73 sq M.predicted among non-blacks MDRD (S/P/Bld) [Vol rate/Area] 102 mL/min/{1.73_m2} ml/min/1.73sq .m [facility] Glucose post fast [Mass/Vol] 96 mg/dL [facility] Lipase [Catalytic activity/Vol] 32 U/L 23 - 300 U/L [facility] Potassium [Moles/Vol] 3.7 mmol/L [facility] Protein [Mass/Vol] 5.6 g/dL Low [facility] Sodium [Moles/Vol] 135 mmol/L Low [facility] Urea nitrogen [Mass/Vol] 8 mg/dL [facility] Laboratory - Hematology and Cell countson 01-23-2024 Basophils/100 WBC (Bld) 0.8 % 0.0 - 2.0 % [facility] Differential cell count method Nom (Bld) AUTO DIFF % [facility] Eosinophils (Bld) [#/Vol] 0.1 10*3/uL 0.0 - 0.7 10*3/uL [facility] Eosinophils/100 WBC (Bld) 2.4 % 0.0 - 11.0 % [facility] Erythrocyte distribution width (RBC) [Ratio] 13.9 % 11.5 - 14.5 % [facility] Hematocrit (Bld) [Volume fraction] 29.1 % Low 36.0 - 48.0 % [facility] Hemoglobin (Bld) [Mass/Vol] 10.0 g/dL Low [facility] Lymphocytes (Bld) [#/Vol] 1.2 10*3/uL 1.2 - 3.4 10*3/uL [facility] Lymphocytes/100 WBC (Bld) 19.6 % Low 20.0 - 55.0 % [facility] MCH (RBC) [Entitic mass] 32.2 pg 26.0 - 35.[address] [facility] MCHC (RBC) [Mass/Vol] 34.3 g/dL [facility] MCV (RBC) [Entitic vol] 94.[address] [facility] Monocytes (Bld) [#/Vol] 0.6 10*3/uL 0.0 - 0.7 10*3/uL [facility] Monocytes/100 WBC (Bld) 9.8 % 0.0 - 10.0 % [facility] Neutrophils (Bld) [#/Vol] 4.0 10*3/uL 1.4 - 6.5 10*3/uL [facility] Neutrophils/100 WBC (Bld) 67.4 % 37.0 - 75.0 % [facility] Platelet mean volume (Bld) [Entitic vol] 6.7 fL Low [facility] Platelets (Bld) [#/Vol] 425 10*3/uL High 130 - 400 10*3/uL [facility] RBC (Bld) [#/Vol] 3.10 10*6/uL Low 4.0 - 5.4 10*6/uL [facility] WBC (Bld) [#/Vol] 6.0 10*3/uL 3.6 - 11.0 10*3/uL [facility] Laboratory - Microbiology an d Antimicrobial susceptibilityon 01-23-2024 Bacteria identified Cx Nom (Unsp spec) NO PATHOGENS ISOLATED [facility] Laboratory - Miscellaneous t estson 01-23-2024 Service comment (Unsp spec) [Interp] 01/23/[address] [facility] Laboratory - Urinalysison Leukocyte esterase+Nitrite Test strip Ql (U) Positive [facility] No Panel Informationon 01-22 SPECIMEN DESCRIPTION URINE - OTHER A [facility] GFR COMMENT Average GFR for 70+ years old = 75. [facility] Interpretation and review of laboratory results Abnormal [facility] ABSOLUTE BASOPHIL COUNT 0.0 10*3/uL 0.0 - 0.2 10*3/uL [facility] Interpretation and review of laboratory results Abnormal [facility] BMP FASTINGon 01-22-2024 Anion gap [Moles/Vol] 3 mmol/L Low 8-16 [facility] Comment on above: Performed By: #### F EPRO ####[place] [address] Calcium [Mass/Vol] 8.8 mg/dL Normal 8.4-10.2 [facility] Comment on above: Performed By: #### F EPRO ####Testing performed at [address] [address] Chloride [Moles/Vol] 101 mmol/L Normal 98-107 [facility] Comment on above: Result Comment: Shonda matthews note: Triglyceride levels of 600mg/dL or higher may positively bias chloride results by approximately 2.1 mmol Performed By: #### F EPRO ####Testing performed at [address] [address] CO2 [Moles/Vol] 33 mmol/L High 22-30 [facility] Comment on above: Performed By: #### F EPRO ####Testing performed at [address] [place] [address] Creatinine [Mass/Vol] 0.60 mg/dL Low 0.7-1.2 [facility] Comment on above: Performed By: #### F EPRO ####Testing performed at [address] [place] [address] EST. GFR, 123 ml/min/1.73sq.m [facility] Comment on above: Performed By: #### F EPRO ####Testing performed at [address] [place] [address] EST. GFR,Non 102 ml/min/1.73sq.m [facility] Comment on above: Performed By: #### F EPRO ####Testing performed at [address] [place] [address] GFR Information Average GFR for 70+ years old = 75. 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 [facility]ney failure, GFR = <15. The GFR estimate is not adjusted for extreme body surface area or acute process, nor has it been validated for women or ethnic groups other than and . Performed By: #### F EPRO ####Testing performed at [address] [place] [address] Glucose [Mass/Vol] 88 mg/dL Normal 70-100 [facility] Comment on above: Result Comment: NORMAL <100 mg/dL PREDIABETES 101-126 mg/dL DIABETES 126 mg/dL or higher Performed By: #### F EPRO ####Testing performed at [address] [address] Potassium [Moles/Vol] 3.7 mmol/L Normal 3.5-5.1 [facility] Comment on above: Performed By: #### F EPRO ####Testing performed at [address] [address] Sodium [Moles/Vol] 137 mmol/L Normal 137-145 [facility] Comment on above: Performed By: #### F EPRO ####Testing performed at [address] [address] Urea nitrogen [Mass/Vol] 8 mg/dL Normal 7-20 [facility] Comment on above: Performed By: #### F EPRO ####Testing performed at [address] [address] C REACTIVE PROTEINon 024 CRP [Mass/Vol] 58.3 mg/L High 0-10 [facility] Comment on above: Performed By: #### F EPRO ####Testing performed at [address] [address] CBCon 01-22-2024 ABSOLUTE BAS 0.0 10*3/uL Normal 0.0-0.2 [facility] Comment on above: Performed By: #### F EPRO ####Testing performed at [address] [address] ABSOLUTE EOS 0.2 10*3/uL Normal 0.0-0.7 [facility] Comment on above: Performed By: #### F EPRO ####Testing performed at [address] [address] ABSOLUTE NEUTROPHIL COUNT 3.8 10*3/uL Normal 1.4-6.5 [facility] Comment on above: Performed By: #### F EPRO ####Testing performed at [address] [address] Basophils/100 WBC (Bld) 0.9 % Normal 0.0-2.0 [facility] Comment on above: Performed By: #### F EPRO ####Testing performed at [address] [place] [address] DTYPE AUTO DIFF Normal [facility] Comment on above: Performed By: #### F EPRO ####Testing performed at [address] [place] [address] Eosinophils/100 WBC (Bld) 3.2 % Normal 0.0-11.0 [facility] Comment on above: Performed By: #### F EPRO ####Testing performed at [address] [place] [address] Lymphocytes (Bld) [#/Vol] 1.1 10*3/uL Low 1.2-3.4 [facility] Comment on above: Performed By: #### F EPRO ####Testing performed at [address] [place] [address] Lymphocytes/100 WBC (Bld) 19.3 % Low 20.0-55.0 [facility] Comment on above: Performed By: #### F EPRO ####Testing performed at [address] [place] [address] Monocytes (Bld) [#/Vol] 0.5 10*3/uL Normal 0.0-0.7 [facility] Comment on above: Performed By: #### F EPRO ####Testing performed at [address] [place] [address] Monocytes/100 WBC (Bld) 8.5 % Normal 0.0-10.0 [facility] Comment on above: Performed By: #### F EPRO ####Testing performed at [address] [place] [address] Neutrophils/100 WBC (Bld) 68.1 % Normal 37.0-75.0 [facility] Comment on above: Performed By: #### F EPRO ####Testing performed at [address] [place] [address] Erythrocyte distribution width (RBC) [Ratio] 14.1 % Normal 11.5-14.5 [facility] Comment on above: Performed By: #### F EPRO ####Testing performed at [address] [address] Hematocrit (Bld) [Volume fraction] 31.8 % Low 36.0-48.0 [facility] Comment on above: Performed By: #### F EPRO ####Testing performed at [address] [address] Hemoglobin (Bld) [Mass/Vol] 10.7 g/dL Low 12.0-16.0 [facility] Comment on above: Performed By: #### F EPRO ####Testing performed at [address] [address] MCH (RBC) [Entitic mass] 31.7 pg Normal 26.0-35.0 [facility] Comment on above: Performed By: #### F EPRO ####Testing performed at [address] [place] [address] MCHC (RBC) [Mass/Vol] 33.6 g/dL Normal 27.0-37.0 [facility] Comment on above: Performed By: #### F EPRO ####Testing performed at [address] [address] MCV (RBC) [Entitic vol] 94.6 fL Normal 80.0-100.0 [facility] Comment on above: Performed By: #### F EPRO ####Testing performed at [address] [place] [address] Platelet mean volume (Bld) [Entitic vol] 7.0 fL Low 7.4-11.0 [facility] Comment on above: Performed By: #### F EPRO ####Testing performed at [address] [address] Platelets (Bld) [#/Vol] 407 10*3/uL High 130-400 [facility] Comment on above: Performed By: #### F EPRO ####Testing performed at [address] [place] [address] RBC (Bld) [#/Vol] 3.36 10*6/uL Low 4.0-5.4 [facility] Comment on above: Performed By: #### F EPRO ####Testing performed at [address] [place] [address] WBC (Bld) [#/Vol] 5.6 10*3/uL Normal 3.6-11.0 [facility] Comment on above: Performed By: #### F EPRO ####Testing performed at [address] [place] [address] ESRon 01-22-2024 ESR (Bld) [Velocity] 71 mm/h High 0-30 [facility] Comment on above: Performed By: #### F EPRO ####Testing performed at [address] [place] [address] IRON PROFILEon 01-22-2024 IRON BINDING 164 UG/DL Low 250-450 [facility] Comment on above: Performed By: #### F EPRO ####Testing performed at [address] [place] [address] TRANSFERRIN SATURATION,CALCULATED 23 % Normal [facility] Comment on above: Performed By: #### F EPRO ####Testing performed at [address] [place] [address] Iron [Mass/Vol] 37 ug/dL Normal 37-170 [facility] Comment on above: Performed By: #### F EPRO ####Testing performed at [address] [place] [address] Laboratory - Chemistry and C hemistry - challengeon 01-22-2024 Iron [Mass/Vol] 37 ug/dL [facility] Iron binding capacity [Mass/Vol] [address] [facility] Iron saturation [Mass fraction] 23 % [facility] Anion gap [Moles/Vol] 3 mmol/L Low [facility] Calcium [Mass/Vol] 8.8 mg/dL [facility] Chloride [Moles/Vol] 101 mmol/L [facility] CO2 [Moles/Vol] 33 mmol/L High [facility] Creatinine [Mass/Vol] 0.60 mg/dL Low [facility] CRP [Mass/Vol] 58.3 mg/L High 0 - 10 MG/L [facility] GFR/1.73 sq M.predicted among blacks MDRD (S/P/Bld) [Vol rate/Area] 123 mL/min/{1.73_m2} ml/min/1.73sq .m [facility] GFR/1.73 sq M.predicted among non-blacks MDRD (S/P/Bld) [Vol rate/Area] 102 mL/min/{1.73_m2} ml/min/1.73sq .m [facility] Glucose post fast [Mass/Vol] 88 mg/dL [facility] Potassium [Moles/Vol] 3.7 mmol/L [facility] Sodium [Moles/Vol] 137 mmol/L [facility] Urea nitrogen [Mass/Vol] 8 mg/dL [facility] Laboratory - Hematology and Cell countson 01-22-2024 ESR (Bld) [Velocity] 71 mm/h High [facility] Basophils/100 WBC (Bld) 0.9 % 0.0 - 2.0 % [facility] Differential cell count method Nom (Bld) AUTO DIFF % [facility] Eosinophils (Bld) [#/Vol] 0.2 10*3/uL 0.0 - 0.7 10*3/uL [facility] Eosinophils/100 WBC (Bld) 3.2 % 0.0 - 11.0 % [facility] Erythrocyte distribution width (RBC) [Ratio] 14.1 % 11.5 - 14.5 % [facility] Hematocrit (Bld) [Volume fraction] 31.8 % Low 36.0 - 48.0 % [facility] Hemoglobin (Bld) [Mass/Vol] 10.7 g/dL Low [facility] Lymphocytes (Bld) [#/Vol] 1.1 10*3/uL Low 1.2 - 3.4 10*3/uL [facility] Lymphocytes/100 WBC (Bld) 19.3 % Low 20.0 - 55.0 % [facility] MCH (RBC) [Entitic mass] 31.7 pg 26.0 - 35.[address] [facility] MCHC (RBC) [Mass/Vol] 33.6 g/dL [facility] MCV (RBC) [Entitic vol] 94.[address] [facility] Monocytes (Bld) [#/Vol] 0.5 10*3/uL 0.0 - 0.7 10*3/uL [facility] Monocytes/100 WBC (Bld) 8.5 % 0.0 - 10.0 % [facility] Neutrophils (Bld) [#/Vol] 3.8 10*3/uL 1.4 - 6.5 10*3/uL [facility] Neutrophils/100 WBC (Bld) 68.1 % 37.0 - 75.0 % [facility] Platelet mean volume (Bld) [Entitic vol] 7.0 fL Low [facility] Platelets (Bld) [#/Vol] 407 10*3/uL High 130 - 400 10*3/uL [facility] RBC (Bld) [#/Vol] 3.36 10*6/uL Low 4.0 - 5.4 10*6/uL [facility] WBC (Bld) [#/Vol] 5.6 10*3/uL 3.6 - 11.0 10*3/uL [facility] No Panel Informationon 01-21 Interpretation and review of laboratory results Abnormal [facility] Interpretation and review of laboratory results Abnormal [facility] GFR COMMENT Average GFR for 70+ years old = 75. [facility] Interpretation and review of laboratory results Abnormal [facility] ABSOLUTE BASOPHIL COUNT 0.0 10*3/uL 0.0 - 0.2 10*3/uL [facility] Interpretation and review of laboratory results Abnormal [facility] BMP FASTINGon 01-21-2024 Anion gap [Moles/Vol] 3 mmol/L Low 8-16 [facility] Calcium [Mass/Vol] 8.6 mg/dL Normal 8.4-10.2 [facility] Chloride [Moles/Vol] 102 mmol/L Normal 98-107 [facility] Comment on above: Result Comment: Shonda matthews note: Triglyceride levels of 600mg/dL or higher may positively bias chloride results by approximately 2.1 mmol CO2 [Moles/Vol] 32 mmol/L High 22-30 [facility] Creatinine [Mass/Vol] 0.60 mg/dL Low 0.7-1.2 [facility] EST. GFR, 123 ml/min/1.73sq.m Normal [facility] EST. GFR,Non 102 ml/min/1.73sq.m Normal [facility] GFR Information Average GFR for 70+ years old = 75. 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 Kidney failure, GFR = <15. The GFR estimate is not adjusted for extreme body surface area or acute process, nor has it been validated for women or ethnic groups other than and . Glucose [Mass/Vol] 100 mg/dL Normal 70-100 [facility] Comment on above: Result Comment: NORMAL <100 mg/dL PREDIABETES 101-126 mg/dL DIABETES 126 mg/dL or higher Potassium [Moles/Vol] 3.6 mmol/L Normal 3.5-5.1 [facility] Sodium [Moles/Vol] 137 mmol/L Normal 137-145 [facility] Urea nitrogen [Mass/Vol] 8 mg/dL Normal 7-20 [facility] CBCon 01-21-2024 ABSOLUTE BAS 0.0 10*3/uL Normal 0.0-0.2 [facility] ABSOLUTE EOS 0.2 10*3/uL Normal 0.0-0.7 [facility] ABSOLUTE NEUTROPHIL COUNT 3.9 10*3/uL Normal 1.4-6.5 [facility] Basophils/100 WBC (Bld) 0.6 % Normal 0.0-2.0 [facility] DTYPE AUTO DIFF Normal [facility] Eosinophils/100 WBC (Bld) 3.6 % Normal 0.0-11.0 [facility] Lymphocytes (Bld) [#/Vol] 1.2 10*3/uL Normal 1.2-3.4 [facility] Lymphocytes/100 WBC (Bld) 19.7 % Low 20.0-55.0 [facility] Monocytes (Bld) [#/Vol] 0.6 10*3/uL Normal 0.0-0.7 [facility] Monocytes/100 WBC (Bld) 9.9 % Normal 0.0-10.0 [facility] Neutrophils/100 WBC (Bld) 66.2 % Normal 37.0-75.0 [facility] Erythrocyte distribution width (RBC) [Ratio] 14.1 % Normal 11.5-14.5 [facility] Hematocrit (Bld) [Volume fraction] 27.7 % Low 36.0-48.0 [facility] Hemoglobin (Bld) [Mass/Vol] 9.5 g/dL Low 12.0-16.0 [facility] MCH (RBC) [Entitic mass] 32.6 pg Normal 26.0-35.0 [facility] MCHC (RBC) [Mass/Vol] 34.3 g/dL Normal 27.0-37.0 [facility] MCV (RBC) [Entitic vol] 95.0 fL Normal 80.0-100.0 [facility] Platelet mean volume (Bld) [Entitic vol] 6.9 fL Low 7.4-11.0 [facility] Platelets (Bld) [#/Vol] 370 10*3/uL Normal 130-400 [facility] RBC (Bld) [#/Vol] 2.91 10*6/uL Low 4.0-5.4 [facility] WBC (Bld) [#/Vol] 5.9 10*3/uL Normal 3.6-11.0 [facility] Laboratory - Chemistry and C hemistry - challengeon 01-21-2024 Anion gap [Moles/Vol] 3 mmol/L Low [facility] Calcium [Mass/Vol] 8.6 mg/dL [facility] Chloride [Moles/Vol] 102 mmol/L [facility] CO2 [Moles/Vol] 32 mmol/L High [facility] Creatinine [Mass/Vol] 0.60 mg/dL Low [facility] GFR/1.73 sq M.predicted among blacks MDRD (S/P/Bld) [Vol rate/Area] 123 mL/min/{1.73_m2} ml/min/1.73sq .m [facility] GFR/1.73 sq M.predicted among non-blacks MDRD (S/P/Bld) [Vol rate/Area] 102 mL/min/{1.73_m2} ml/min/1.73sq .m [facility] Glucose post fast [Mass/Vol] 100 mg/dL [facility] Potassium [Moles/Vol] 3.6 mmol/L [facility] Sodium [Moles/Vol] 137 mmol/L [facility] Urea nitrogen [Mass/Vol] 8 mg/dL [facility] Laboratory - Hematology and Cell countson 01-21-2024 Basophils/100 WBC (Bld) 0.6 % 0.0 - 2.0 % [facility] Differential cell count method Nom (Bld) AUTO DIFF % [facility] Eosinophils (Bld) [#/Vol] 0.2 10*3/uL 0.0 - 0.7 10*3/uL [facility] Eosinophils/100 WBC (Bld) 3.6 % 0.0 - 11.0 % [facility] Erythrocyte distribution width (RBC) [Ratio] 14.1 % 11.5 - 14.5 % [facility] Hematocrit (Bld) [Volume fraction] 27.7 % Low 36.0 - 48.0 % [facility] Hemoglobin (Bld) [Mass/Vol] 9.5 g/dL Low [facility] Lymphocytes (Bld) [#/Vol] 1.2 10*3/uL 1.2 - 3.4 10*3/uL [facility] Lymphocytes/100 WBC (Bld) 19.7 % Low 20.0 - 55.0 % [facility] MCH (RBC) [Entitic mass] 32.6 pg 26.0 - 35.[address] [facility] MCHC (RBC) [Mass/Vol] 34.3 g/dL [facility] MCV (RBC) [Entitic vol] 95.[address] [facility] Monocytes (Bld) [#/Vol] 0.6 10*3/uL 0.0 - 0.7 10*3/uL [facility] Monocytes/100 WBC (Bld) 9.9 % 0.0 - 10.0 % [facility] Neutrophils (Bld) [#/Vol] 3.9 10*3/uL 1.4 - 6.5 10*3/uL [facility] Neutrophils/100 WBC (Bld) 66.2 % 37.0 - 75.0 % [facility] Platelet mean volume (Bld) [Entitic vol] 6.9 fL Low [facility] Platelets (Bld) [#/Vol] 370 10*3/uL 130 - 400 10*3/uL [facility] RBC (Bld) [#/Vol] 2.91 10*6/uL Low 4.0 - 5.4 10*6/uL [facility] WBC (Bld) [#/Vol] 5.9 10*3/uL 3.6 - 11.0 10*3/uL [facility] Laboratory - Microbiology an d Antimicrobial susceptibilityon 01-21-2024 MRSA isol Org specific cx Ql (Nose) Negative NEGATIVE [facility] Laboratory - Urinalysison Bacteria LM.HPF (Urine sed) [#/Area] TRACE Abnormal NEGATIVE [facility] Casts LM.LPF (Urine sed) [#/Area] NONE NONE /LPF [facility] Crystals LM Nom (Urine sed) NONE NONE [facility] Epithelial cells LM Ql (Urine sed) 1 TO 5 /HPF [facility] Mucus Ql (Urine sed) Negative NEGATIVE [facility] RBC LM.HPF (Urine sed) [#/Area] 1 TO 5 NEGATIVE /HPF [facility] Urine sediment comments LM Girish (Urine sed) REFLEX CULTURE PER ESTABLISHED CRITERIA. [facility] WBC LM.HPF (Urine sed) [#/Area] Negative NEGATIVE /HPF [facility] MRSA SCREENon 01-21-2024 MRSA DNA SMILEY+probe Ql (Unsp spec) Negative Normal NEGATIVE [facility] STAPH AUREUS SCREEN Negative Normal NEGATIVE [facility] Comment on above: Result Comment: TEST ING PERFORMED BY PCR No Panel Informationon 01-20 Interpretation and review of laboratory results Abnormal [facility] STAPHYOCOCCUS AUREUS BY PCR Negative NEGATIVE [facility] GFR COMMENT Average GFR for 70+ years old = 75. [facility] Interpretation and review of laboratory results Abnormal [facility] ABSOLUTE BASOPHIL COUNT 0.0 10*3/uL 0.0 - 0.2 10*3/uL [facility] Interpretation and review of laboratory results Abnormal [facility] URINE CULTUREon 01-21-2024 Bacteria identified Cx Nom (U) SPECIMEN DESCRIPTION URINE - OTHER UA DIPSTICK LEUKOCYTE POSITIVE * Result Note: NITRITE NEGATIVE * CULTURE NO PATHOGENS ISOLATED * Result Note: Testing performed at [place] [address] * REPORT STATUS 01/23/2024 * Result Note: FINAL * Normal [facility] Comment on above: Performed By: #### A URNC #### Testing performed at [facility] [address] [place] [address] Testing performed at [facility] [address] [place] [address] URINE MICROSCOPICon 01-21-20 24 BACTERIA TRACE Abnormal NEGATIVE [facility] CASTS NONE Normal NONE [facility] CRYSTAL NONE Normal NONE [facility] Epithelial cells LM Ql (Urine sed) 1 TO 5 Normal [facility] Mucus Ql (Urine sed) Negative Normal NEGATIVE [facility] URINE COMMENT REFLEX CULTURE PER ESTABLISHED CRITERIA. Normal [facility] URINE RBC'S 1 TO 5 Normal NEGATIVE [facility] URINE WBC'S Negative Normal NEGATIVE [facility] 25 0H VITAMIN D LEVELon 25 0H VITAMIN D LEVEL 16.9 NG/ML Normal [facility] Comment on above: Result Comment: DEFICIENT <20 NG/ML INSUFFICIENT 20-<30 NG/ML SUFFICIENT 30-100 NG/ML POTENTIAL TOXICITY >100 NG/ML BMP FASTINGon 01-20-2024 Anion gap [Moles/Vol] 2 mmol/L Low 8-16 [facility] Comment on above: Performed By: #### A CBC, FEPRO ####Testing performed at [address] [address] Calcium [Mass/Vol] 8.3 mg/dL Low 8.4-10.2 [facility] Comment on above: Performed By: #### A CBC, FEPRO ####Testing performed at [address] [address] Chloride [Moles/Vol] 103 mmol/L Normal 98-107 [facility] Comment on above: Result Comment: Shonda matthews note: Triglyceride levels of 600mg/dL or higher may positively bias chloride results by approximately 2.1 mmol Performed By: #### A CBC, FEPRO ####Testing performed at [address] [address] CO2 [Moles/Vol] 31 mmol/L High 22-30 [facility] Comment on above: Performed By: #### A CBC, FEPRO ####Testing performed at [address] [address] Creatinine [Mass/Vol] 0.60 mg/dL Low 0.7-1.2 [facility] Comment on above: Performed By: #### A CBC, FEPRO ####Testing performed at [address] [place] [address] EST. GFR, 123 ml/min/1.73sq.m [facility] Comment on above: Performed By: #### A CBC, FEPRO ####Testing performed at [address] [address] EST. GFR,Non 102 ml/min/1.73sq.m [facility] Comment on above: Performed By: #### A CBC, FEPRO ####Testing performed at [address] [address] GFR Information Average GFR for 70+ years old = 75. 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 Kidney failure, GFR = <15. The GFR estimate is not adjusted for extreme body surface area or acute process, nor has it been validated for women or ethnic groups other than and . Performed By: #### A CBC, FEPRO ####Testing performed at [address] [address] Glucose [Mass/Vol] 91 mg/dL Normal 70-100 [facility] Comment on above: Result Comment: NORMAL <100 mg/dL PREDIABETES 101-126 mg/dL DIABETES 126 mg/dL or higher Performed By: #### A CBC, FEPRO ####Testing performed at [address] [address] Potassium [Moles/Vol] 3.8 mmol/L Normal 3.5-5.1 [facility] Comment on above: Performed By: #### A CBC, FEPRO ####Testing performed at [address] [address] Sodium [Moles/Vol] 136 mmol/L Low 137-145 [facility] Comment on above: Performed By: #### A CBC, FEPRO ####Testing performed at [address] [address] Urea nitrogen [Mass/Vol] 9 mg/dL Normal 7-20 [facility] Comment on above: Performed By: #### A CBC, FEPRO ####Testing performed at [address] [address] CBCon 01-20-2024 ABSOLUTE BAS 0.0 10*3/uL Normal 0.0-0.2 [facility] Comment on above: Performed By: #### A CBC, FEPRO ####Testing performed at [address] [address] ABSOLUTE EOS 0.2 10*3/uL Normal 0.0-0.7 [facility] Comment on above: Performed By: #### A CBC, FEPRO ####Testing performed at [address] [place] [address] ABSOLUTE NEUTROPHIL COUNT 4.1 10*3/uL Normal 1.4-6.5 [facility] Comment on above: Performed By: #### A CBC, FEPRO ####Testing performed at [address] [place] [address] Basophils/100 WBC (Bld) 0.8 % Normal 0.0-2.0 [facility] Comment on above: Performed By: #### A CBC, FEPRO ####Testing performed at [address] [address] DTYPE AUTO DIFF Normal [facility] Comment on above: Performed By: #### A CBC, FEPRO ####Testing performed at [address] [place] [address] Eosinophils/100 WBC (Bld) 3.0 % Normal 0.0-11.0 [facility] Comment on above: Performed By: #### A CBC, FEPRO ####Testing performed at [address] [place] [address] Lymphocytes (Bld) [#/Vol] 1.2 10*3/uL Normal 1.2-3.4 [facility] Comment on above: Performed By: #### A CBC, FEPRO ####Testing performed at [address] [address] Lymphocytes/100 WBC (Bld) 19.6 % Low 20.0-55.0 [facility] Comment on above: Performed By: #### A CBC, FEPRO ####Testing performed at [address] [address] Monocytes (Bld) [#/Vol] 0.7 10*3/uL Normal 0.0-0.7 [facility] Comment on above: Performed By: #### A CBC, FEPRO ####Testing performed at [address] [address] Monocytes/100 WBC (Bld) 10.9 % High 0.0-10.0 [facility] Comment on above: Performed By: #### A CBC, FEPRO ####Testing performed at [address] [address] Neutrophils/100 WBC (Bld) 65.7 % Normal 37.0-75.0 [facility] Comment on above: Performed By: #### A CBC, FEPRO ####Testing performed at [address] [address] Erythrocyte distribution width (RBC) [Ratio] 14.0 % Normal 11.5-14.5 [facility] Comment on above: Performed By: #### A CBC, FEPRO ####Testing performed at [address] [address] Hematocrit (Bld) [Volume fraction] 27.6 % Low 36.0-48.0 [facility] Comment on above: Performed By: #### A CBC, FEPRO ####Testing performed at [address] [address] Hemoglobin (Bld) [Mass/Vol] 9.4 g/dL Low 12.0-16.0 [facility] Comment on above: Performed By: #### A CBC, FEPRO ####Testing performed at [address] [address] MCH (RBC) [Entitic mass] 32.3 pg Normal 26.0-35.0 [facility] Comment on above: Performed By: #### A CBC, FEPRO ####Testing performed at [address] [address] MCHC (RBC) [Mass/Vol] 34.0 g/dL Normal 27.0-37.0 [facility] Comment on above: Performed By: #### A CBC, FEPRO ####Testing performed at [address] [address] MCV (RBC) [Entitic vol] 95.0 fL Normal 80.0-100.0 [facility] Comment on above: Performed By: #### A CBC, FEPRO ####Testing performed at [address] [address] Platelet mean volume (Bld) [Entitic vol] 6.9 fL Low 7.4-11.0 [facility] Comment on above: Performed By: #### A CBC, FEPRO ####Testing performed at [address] [address] Platelets (Bld) [#/Vol] 357 10*3/uL Normal 130-400 [facility] Comment on above: Performed By: #### A CBC, FEPRO ####Testing performed at [address] [address] RBC (Bld) [#/Vol] 2.90 10*6/uL Low 4.0-5.4 [facility] Comment on above: Performed By: #### A CBC, FEPRO ####Testing performed at [address] [address] WBC (Bld) [#/Vol] 6.3 10*3/uL Normal 3.6-11.0 [facility] Comment on above: Performed By: #### A CBC, FEPRO ####Testing performed at [address] [address] IRON PROFILEon 01-20-2024 IRON BINDING 144 UG/DL Low 250-450 [facility] Comment on above: Performed By: #### A CBC #### Testing performed at [address] [address] TRANSFERRIN SATURATION,CALCULATED 20 % Normal [facility] Comment on above: Performed By: #### A CBC #### Testing performed at [address] [place] [address] Iron [Mass/Vol] 29 ug/dL Low 37-170 [facility] Comment on above: Performed By: #### A CBC #### [place] [address] Laboratory - Chemistry and C hemistry - challengeon 01-20-2024 25-hydroxyvitamin D [Mass/Vol] 16.9 NG/ML [facility] Parathyrin.intact [Mass/Vol] 40.2 pg/mL 14.5 - 75.2 pg/mL [facility] Iron [Mass/Vol] 29 ug/dL Low [facility] Iron binding capacity [Mass/Vol] 144 Low [facility] Anion gap [Moles/Vol] 2 mmol/L Low [facility] Calcium [Mass/Vol] 8.3 mg/dL Low [facility] Chloride [Moles/Vol] 103 mmol/L [facility] CO2 [Moles/Vol] 31 mmol/L High [facility] Creatinine [Mass/Vol] 0.60 mg/dL Low [facility] GFR/1.73 sq M.predicted among blacks MDRD (S/P/Bld) [Vol rate/Area] 123 mL/min/{1.73_m2} ml/min/1.73sq .m [facility] GFR/1.73 sq M.predicted among non-blacks MDRD (S/P/Bld) [Vol rate/Area] 102 mL/min/{1.73_m2} ml/min/1.73sq .m [facility] Glucose post fast [Mass/Vol] 91 mg/dL [facility] Potassium [Moles/Vol] 3.8 mmol/L [facility] Sodium [Moles/Vol] 136 mmol/L Low [facility] Urea nitrogen [Mass/Vol] 9 mg/dL [facility] Laboratory - Hematology and Cell countson 01-20-2024 Basophils/100 WBC (Bld) 0.8 % 0.0 - 2.0 % [facility] Differential cell count method Nom (Bld) AUTO DIFF % [facility] Eosinophils (Bld) [#/Vol] 0.2 10*3/uL 0.0 - 0.7 10*3/uL [facility] Eosinophils/100 WBC (Bld) 3.0 % 0.0 - 11.0 % [facility] Erythrocyte distribution width (RBC) [Ratio] 14.0 % 11.5 - 14.5 % [facility] Hematocrit (Bld) [Volume fraction] 27.6 % Low 36.0 - 48.0 % [facility] Hemoglobin (Bld) [Mass/Vol] 9.4 g/dL Low [facility] Lymphocytes (Bld) [#/Vol] 1.2 10*3/uL 1.2 - 3.4 10*3/uL [facility] Lymphocytes/100 WBC (Bld) 19.6 % Low 20.0 - 55.0 % [facility] MCH (RBC) [Entitic mass] 32.3 pg 26.0 - 35.[address] [facility] MCHC (RBC) [Mass/Vol] 34.0 g/dL [facility] MCV (RBC) [Entitic vol] 95.[address] [facility] Monocytes (Bld) [#/Vol] 0.7 10*3/uL 0.0 - 0.7 10*3/uL [facility] Monocytes/100 WBC (Bld) 10.9 % High 0.0 - 10.0 % [facility] Neutrophils (Bld) [#/Vol] 4.1 10*3/uL 1.4 - 6.5 10*3/uL [facility] Neutrophils/100 WBC (Bld) 65.7 % 37.0 - 75.0 % [facility] Platelet mean volume (Bld) [Entitic vol] 6.9 fL Low [facility] Platelets (Bld) [#/Vol] 357 10*3/uL 130 - 400 10*3/uL [facility] RBC (Bld) [#/Vol] 2.90 10*6/uL Low 4.0 - 5.4 10*6/uL [facility] WBC (Bld) [#/Vol] 6.3 10*3/uL 3.6 - 11.0 10*3/uL [facility] No Panel Informationon 01-19 [facility] Interpretation and review of laboratory results Abnormal [facility] Transferrin Saturation (%) 20 % [facility] GFR COMMENT Average GFR for 70+ years old = 75. [facility] Interpretation and review of laboratory results Abnormal [facility] ABSOLUTE BASOPHIL COUNT 0.0 10*3/uL 0.0 - 0.2 10*3/uL [facility] Interpretation and review of laboratory results Abnormal [facility] PTH,INTACTon 01-20-2024 PTH,INTACT 40.2 pg/mL Normal 14.5-75.2 [facility] Comment on above: Performed By: #### A CBC #### [place] [address] Portable XR Chest Viewson RADIOLOGY RADIOLOGY [facility] Radiology Study observation (narrative) [facility] Portable XR Chest ViewsOrder ed By: Katina Carlisel on 01-20-[address] [facility] XR CHEST 1 VIEW PORTABLEon 0 [...] markings which may well be chronic. Normal [facility] BASIC METABOLIC PANELon Anion gap [Moles/Vol] 3 mmol/L MMOL/L [facility] Calcium [Mass/Vol] 8.4 mg/dL [facility] Chloride [Moles/Vol] 105 mmol/L [facility] Comment on above: Please note: Triglyc eride levels of 600mg/dL or higher may positively bias chloride results by approximately 2.1 mmol CO2 [Moles/Vol] 27 mmol/L [facility] Creatinine [Mass/Vol] 0.60 mg/dL Low [facility] GFR COMMENT Average GFR for 70+ years old = 75. [facility] Comment on above: Chronic Kidney disea se, GFR = <60. Kidney failure, GFR = <15. The GFR estimate is not adjusted for extreme body surface area or acute process, nor has it been validated for women or ethnic groups other than and . GFR/1.73 sq M.predicted among blacks MDRD (S/P/Bld) [Vol rate/Area] 123 mL/min/{1.73_m2} ml/min/1.73sq .m [facility] GFR/1.73 sq M.predicted among non-blacks MDRD (S/P/Bld) [Vol rate/Area] 102 mL/min/{1.73_m2} ml/min/1.73sq .m [facility] Glucose post fast [Mass/Vol] 119 mg/dL High [facility] Comment on above: NORMAL <100 mg/dL PREDIABETES 101-126 mg/dL DIABETES 126 mg/dL or higher Interpretation and review of laboratory results Abnormal [facility] Potassium [Moles/Vol] 3.5 mmol/L [facility] Sodium [Moles/Vol] 135 mmol/L Low [facility] Urea nitrogen [Mass/Vol] 10 mg/dL [facility] BMP FASTINGon 01-18-2024 Anion gap [Moles/Vol] 3 mmol/L Normal [facility] Comment on above: Performed By: #### U GRUPO, UMAC #### Testing performed at [address] [address] Calcium [Mass/Vol] 8.4 mg/dL Normal 8.4-10.2 [facility] Comment on above: Performed By: #### U GRUPO, UMAC #### Testing performed at [address] [address] Chloride [Moles/Vol] 105 mmol/L Normal 98-107 [facility] Comment on above: Result Comment: Plea se note: Triglyceride levels of 600mg/dL or higher may positively bias chloride results by approximately 2.1 mmol Performed By: #### U GRUPO, UMAC #### Testing performed at [address] [address] CO2 [Moles/Vol] 27 mmol/L Normal 22-30 [facility] Comment on above: Performed By: #### U GRUPO, UMAC #### Testing performed at [place] [id number] Creatinine [Mass/Vol] 0.60 mg/dL Low 0.70-1.20 [facility] Comment on above: Performed By: #### U GRUPO, UMAC #### Testing performed at [address] [address] EST. GFR, 123 ml/min/1.73sq.m [facility] Comment on above: Performed By: #### U GRUPO, UMAC #### Testing performed at [address] [address] EST. GFR,Non 102 ml/min/1.73sq.m [facility] Comment on above: Performed By: #### U GRUPO, UMAC #### Testing performed at [place] [id number] GFR Information Average GFR for 70+ years old = 75. 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 Kidney failure, GFR = <15. The GFR estimate is not adjusted for extreme body surface area or acute process, nor has it been validated for women or ethnic groups other than and . Performed By: #### U GRUPO, UMAC #### Testing performed at [address] [address] Glucose [Mass/Vol] 119 mg/dL High 70-100 [facility] Comment on above: Result Comment: NORMAL <100 mg/dL PREDIABETES 101-126 mg/dL DIABETES 126 mg/dL or higher Performed By: #### U GRUPO, UMAC #### Testing performed at [place] [id number] Potassium [Moles/Vol] 3.5 mmol/L Normal 3.5-5.1 [facility] Comment on above: Performed By: #### U GRUPO, UMAC #### Testing performed at [address] [address] Sodium [Moles/Vol] 135 mmol/L Low 137-145 [facility] Comment on above: Performed By: #### U GRUPO, UMAC #### Testing performed at [address] [address] Urea nitrogen [Mass/Vol] 10 mg/dL Normal 7-20 [facility] Comment on above: Performed By: #### U GRUPO, UMAC #### Testing performed at [address] [address] CBCon 01-17-2024 ABSOLUTE BAS 0.0 10*3/uL Normal 0.0-0.2 [facility] Comment on above: Performed By: #### U GRUPO, UMAC #### Testing performed at [address] [address] ABSOLUTE EOS 0.1 10*3/uL Normal 0.0-0.7 [facility] Comment on above: Performed By: #### U GRUPO, UMAC #### Testing performed at [address] [address] ABSOLUTE NEUTROPHIL COUNT 4.7 10*3/uL Normal 1.4-6.5 [facility] Comment on above: Performed By: #### U GRUPO, UMAC #### Testing performed at [address] [address] Basophils/100 WBC (Bld) 0.6 % Normal 0.0-2.0 [facility] Comment on above: Performed By: #### U GRUPO, UMAC #### Testing performed at [address] [address] DTYPE AUTO DIFF Normal [facility] Comment on above: Performed By: #### U GRUPO, UMAC #### Testing performed at [address] [address] Eosinophils/100 WBC (Bld) 1.9 % Normal 0.0-11.0 [facility] Comment on above: Performed By: #### U GRUPO, UMAC #### Testing performed at [address] [place] [address] Erythrocyte distribution width (RBC) [Ratio] 13.9 % Normal 11.5-14.5 [facility] Comment on above: Performed By: #### U GRUPO, UMAC #### Testing performed at [address] [address] Hematocrit (Bld) [Volume fraction] 29.2 % Low 36.0-48.0 [facility] Comment on above: Performed By: #### U GRUPO, UMAC #### Testing performed at [address] [address] Hemoglobin (Bld) [Mass/Vol] 9.8 g/dL Low 12.0-16.0 [facility] Comment on above: Performed By: #### U GRUPO, UMAC #### Testing performed at [address] [address] Lymphocytes (Bld) [#/Vol] 1.1 10*3/uL Low 1.2-3.4 [facility] Comment on above: Performed By: #### U GRUPO, UMAC #### Testing performed at [address] [address] Lymphocytes/100 WBC (Bld) 16.5 % Low 20.0-55.0 [facility] Comment on above: Performed By: #### U GRUPO, UMAC #### Testing performed at [address] [address] MCH (RBC) [Entitic mass] 31.8 pg Normal 26.0-35.0 [facility] Comment on above: Performed By: #### U GRUPO, UMAC #### Testing performed at [address] [address] MCHC (RBC) [Mass/Vol] 33.6 g/dL Normal 27.0-37.0 [facility] Comment on above: Performed By: #### U GRUPO, UMAC #### Testing performed at [address] [address] MCV (RBC) [Entitic vol] 94.6 fL Normal 80.0-100.0 [facility] Comment on above: Performed By: #### U GRUPO, UMAC #### Testing performed at [address] [address] Monocytes (Bld) [#/Vol] 0.8 10*3/uL High 0.0-0.7 [facility] Comment on above: Performed By: #### U GRUPO, UMAC #### Testing performed at [address] [address] Monocytes/100 WBC (Bld) 11.9 % High 0.0-10.0 [facility] Comment on above: Performed By: #### U GRUPO, UMAC #### Testing performed at [address] [address] Neutrophils/100 WBC (Bld) 69.1 % Normal 37.0-75.0 [facility] Comment on above: Performed By: #### U GRUPO, UMAC #### Testing performed at [address] [address] Platelet mean volume (Bld) [Entitic vol] 7.9 fL Normal 7.4-11.0 [facility] Comment on above: Performed By: #### U GRUPO, UMAC #### Testing performed at [address] [address] Platelets (Bld) [#/Vol] 279 10*3/uL Normal 130-400 [facility] Comment on above: Performed By: #### U GRUPO, UMAC #### Testing performed at [address] [address] RBC (Bld) [#/Vol] 3.09 10*6/uL Low 4.0-5.4 [facility] Comment on above: Performed By: #### U GRUPO, UMAC #### Testing performed at [address] [address] WBC (Bld) [#/Vol] 6.8 10*3/uL Normal 3.6-11.0 [facility] Comment on above: Performed By: #### U GRUPO, UMAC #### Testing performed at [address] [address] CBC, EDIF, PLATELETon 07-01- 2024 ABSOLUTE BASOPHIL COUNT 0.0 10*3/uL 0.0 - 0.2 10*3/uL [facility] Basophils/100 WBC (Bld) 0.6 % 0.0 - 2.0 % [facility] Differential cell count method Nom (Bld) AUTO DIFF % [facility] Eosinophils (Bld) [#/Vol] 0.1 10*3/uL 0.0 - 0.7 10*3/uL [facility] Eosinophils/100 WBC (Bld) 1.9 % 0.0 - 11.0 % [facility] Erythrocyte distribution width (RBC) [Ratio] 13.9 % 11.5 - 14.5 % [facility] Hematocrit (Bld) [Volume fraction] 29.2 % Low 36.0 - 48.0 % [facility] Hemoglobin (Bld) [Mass/Vol] 9.8 g/dL Low [facility] Interpretation and review of laboratory results Abnormal [facility] Lymphocytes (Bld) [#/Vol] 1.1 10*3/uL Low 1.2 - 3.4 10*3/uL [facility] Lymphocytes/100 WBC (Bld) 16.5 % Low 20.0 - 55.0 % [facility] MCH (RBC) [Entitic mass] 31.8 pg 26.0 - 35.[address] [facility] MCHC (RBC) [Mass/Vol] 33.6 g/dL [facility] MCV (RBC) [Entitic vol] 94.[address] [facility] Monocytes (Bld) [#/Vol] 0.8 10*3/uL High 0.0 - 0.7 10*3/uL [facility] Monocytes/100 WBC (Bld) 11.9 % High 0.0 - 10.0 % [facility] Neutrophils (Bld) [#/Vol] 4.7 10*3/uL 1.4 - 6.5 10*3/uL [facility] Neutrophils/100 WBC (Bld) 69.1 % 37.0 - 75.0 % [facility] Platelet mean volume (Bld) [Entitic vol] 7.[address] [facility] Platelets (Bld) [#/Vol] 279 10*3/uL 130 - 400 10*3/uL [facility] RBC (Bld) [#/Vol] 3.09 10*6/uL Low 4.0 - 5.4 10*6/uL [facility] WBC (Bld) [#/Vol] 6.8 10*3/uL 3.6 - 11.0 10*3/uL [facility] RENAL FUNCTION PANELon 01-16 Albumin [Mass/Vol] 2.6 G/dl Low 3.5 - 5.0 G/dl [facility] Calcium [Mass/Vol] 8.2 mg/dL Low [facility] Chloride [Moles/Vol] 105 mmol/L [facility] Comment on above: Please note: Triglyc eride levels of 600mg/dL or higher may positively bias chloride results by approximately 2.1 mmol CO2 [Moles/Vol] 29 mmol/L [facility] Creatinine [Mass/Vol] 0.51 mg/dL Low [facility] GFR COMMENT Average GFR for 70+ years old = 75. [facility] Comment on above: Chronic Kidney disea se, GFR = <60. Kidney failure, GFR = <15. The GFR estimate is not adjusted for extreme body surface area or acute process, nor has it been validated for women or ethnic groups other than and . GFR/1.73 sq M.predicted among blacks MDRD (S/P/Bld) [Vol rate/Area] 149 mL/min/{1.73_m2} ml/min/1.73sq .m [facility] GFR/1.73 sq M.predicted among non-blacks MDRD (S/P/Bld) [Vol rate/Area] 123 mL/min/{1.73_m2} ml/min/1.73sq .m [facility] Glucose post fast [Mass/Vol] 106 mg/dL High [facility] Comment on above: NORMAL <100 mg/dL PREDIABETES 101-126 mg/dL DIABETES 126 mg/dL or higher Interpretation and review of laboratory results Abnormal [facility] Phosphate [Mass/Vol] 2.6 mg/dL [facility] Potassium [Moles/Vol] 3.3 mmol/L Low [facility] Sodium [Moles/Vol] 135 mmol/L Low [facility] Urea nitrogen [Mass/Vol] 10 mg/dL [facility] RENAL PANEL,FASTINGon 2023 ALBUMIN 2.6 G/dl Low 3.5-5.0 [facility] Comment on above: Performed By: #### U GRUPO, UMAC #### Testing performed at [address] [address] Calcium [Mass/Vol] 8.2 mg/dL Low 8.4-10.2 [facility] Comment on above: Performed By: #### U GRUPO, UMAC #### Testing performed at [address] [address] Chloride [Moles/Vol] 105 mmol/L Normal 98-107 [facility] Comment on above: Result Comment: Shonda matthews note: Triglyceride levels of 600mg/dL or higher may positively bias chloride results by approximately 2.1 mmol Performed By: #### U GRUPO, UMAC #### Testing performed at [address] [address] CO2 [Moles/Vol] 29 mmol/L Normal 22-30 [facility] Comment on above: Performed By: #### U GRUPO, UMAC #### Testing performed at [address] [address] Creatinine [Mass/Vol] 0.51 mg/dL Low 0.70-1.20 [facility] Comment on above: Performed By: #### U GRUPO, UMAC #### Testing performed at [address] [address] EST. GFR, 149 ml/min/1.73sq.m [facility] Comment on above: Performed By: #### U GRUPO, UMAC #### Testing performed at [address] [address] EST. GFR,Non 123 ml/min/1.73sq.m [facility] Comment on above: Performed By: #### U GRUPO, UMAC #### Testing performed at [address] [place] [address] GFR Information Average GFR for 70+ years old = 75. 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 Kidney failure, GFR = <15. The GFR estimate is not adjusted for extreme body surface area or acute process, nor has it been validated for women or ethnic groups other than and . Performed By: #### U GRUPO, UMAC #### Testing performed at [address] [address] Glucose [Mass/Vol] 106 mg/dL High 70-100 [facility] Comment on above: Result Comment: NORMAL <100 mg/dL PREDIABETES 101-126 mg/dL DIABETES 126 mg/dL or higher Performed By: #### U GRUPO, UMAC #### Testing performed at [address] [address] PHOSPHOROUS 2.6 MG/DL Normal 2.5-4.5 [facility] Comment on above: Performed By: #### U GRUPO, UMAC #### Testing performed at [address] [address] Potassium [Moles/Vol] 3.3 mmol/L Low 3.5-5.1 [facility] Comment on above: Performed By: #### U GRUPO, UMAC #### Testing performed at [address] [address] Sodium [Moles/Vol] 135 mmol/L Low 137-145 [facility] Comment on above: Performed By: #### U GRUOP, UMAC #### Testing performed at [address] [address] Urea nitrogen [Mass/Vol] 10 mg/dL Normal 7-20 [facility] Comment on above: Performed By: #### U GRUPO, UMAC #### Testing performed at [address] [address] SURGICAL PATHOLOGY REQUESTon 01-17-2024 Pathology report final diagnosis Narrative Surgical Final Report Patient Name: CUATE GOODMAN [facility]. Rec. #: [id number] Physician: ERIK HEREDIA Specimen(s) Received Left femoral head Clinical / Pre-Operative Diagnosis Osteoarthritis of left hip unspecified osteoarthritis type Post-Operative Diagnosis Not provided Surgical Procedure Arthroplasty hip total latera approach Diagnosis: Left femoral head, Excision: -Consistent with degenerative joint disease Electronically Signed lks/01/13/2024 Khoa S. Jarrell DO Gross Description: The specimen is received in formalin, and labeled left femoral head, Cuate Goodman and date of 1940. The specimen consists of a femoral head and neck measuring 5.5 x 5 x 5 cm with articular cartilage degeneration. Sectioning reveals unremarkable bone. [facility] [employer] sections are submitted in one cassette and placed in decalcification solution prior to processing. Billing Fee Code(s) A: 32867, 89695 [facility] XR FOOT RIGHT 2 VIEWSon XR FOOT RIGHT 2 VIEWS EXAM: XR FOOT RIG T 2 VIEWS HISTORY: swelling, pain with [...] and hallux valgus with osseous demineralization. Normal [facility] XR Foot - right 2 Viewson IMPRESSION: [...] DJD and hallux valgus with osseous demineralization. [facility] Radiology Study observation (narrative) [facility] XR Foot - right 2 ViewsOrder ed By: Miguel Marin on 01-17-[address] [facility] Work Phone: CBCon 01-14-2024 ABSOLUTE BAS 0.0 10*3/uL Normal 0.0-0.2 [facility] Comment on above: Performed By: #### U GRUPO, UMAC #### Testing performed at [address] [address] ABSOLUTE EOS 0.1 10*3/uL Normal 0.0-0.7 [facility] Comment on above: Performed By: #### U GRUPO, UMAC #### Testing performed at [address] [address] ABSOLUTE NEUTROPHIL COUNT 7.6 10*3/uL High 1.4-6.5 [facility] Comment on above: Performed By: #### U GRUPO, UMAC #### Testing performed at [address] [address] Basophils/100 WBC (Bld) 0.3 % Normal 0.0-2.0 [facility] Comment on above: Performed By: #### U GRUPO, UMAC #### Testing performed at [address] [address] DTYPE AUTO DIFF Normal [facility] Comment on above: Performed By: #### U GRUPO, UMAC #### Testing performed at [address] [address] Eosinophils/100 WBC (Bld) 0.5 % Normal 0.0-11.0 [facility] Comment on above: Performed By: #### U GRUPO, UMAC #### Testing performed at [address] [address] Lymphocytes (Bld) [#/Vol] 1.1 10*3/uL Low 1.2-3.4 [facility] Comment on above: Performed By: #### U GRUPO, UMAC #### Testing performed at [address] [address] Lymphocytes/100 WBC (Bld) 11.0 % Low 20.0-55.0 [facility] Comment on above: Performed By: #### U GRUPO, UMAC #### Testing performed at [address] [address] Monocytes (Bld) [#/Vol] 1.1 10*3/uL High 0.0-0.7 [facility] Comment on above: Performed By: #### U GRUPO, UMAC #### Testing performed at [address] [address] Monocytes/100 WBC (Bld) 10.8 % High 0.0-10.0 [facility] Comment on above: Performed By: #### U GRUPO, UMAC #### Testing performed at [address] [address] Neutrophils/100 WBC (Bld) 77.4 % High 37.0-75.0 [facility] Comment on above: Performed By: #### U GRUPO, UMAC #### Testing performed at [address] [address] Erythrocyte distribution width (RBC) [Ratio] 14.6 % High 11.5-14.5 [facility] Comment on above: Performed By: #### U GRUPO, UMAC #### Testing performed at [address] [address] Hematocrit (Bld) [Volume fraction] 32.1 % Low 36.0-48.0 [facility] Comment on above: Performed By: #### U GRUPO, UMAC #### Testing performed at [facility] [address] [place] [address] Hemoglobin (Bld) [Mass/Vol] 10.5 g/dL Low 12.0-16.0 [facility] Comment on above: Performed By: #### U GRUPO, UMAC #### Testing performed at [address] [address] MCH (RBC) [Entitic mass] 31.4 pg Normal 26.0-35.0 [facility] Comment on above: Performed By: #### U GRUPO, UMAC #### Testing performed at [address] [address] MCHC (RBC) [Mass/Vol] 32.8 g/dL Normal 27.0-37.0 [facility] Comment on above: Performed By: #### U GRUPO, UMAC #### Testing performed at [address] [address] MCV (RBC) [Entitic vol] 96.0 fL Normal 80.0-100.0 [facility] Comment on above: Performed By: #### U GRUPO, UMAC #### Testing performed at [address] [address] Platelet mean volume (Bld) [Entitic vol] 8.4 fL Normal 7.4-11.0 [facility] Comment on above: Performed By: #### U GRUPO, UMAC #### Testing performed at [address] [address] Platelets (Bld) [#/Vol] 226 10*3/uL Normal 130-400 [facility] Comment on above: Performed By: #### U GRUPO, UMAC #### Testing performed at [address] [address] RBC (Bld) [#/Vol] 3.35 10*6/uL Low 4.0-5.4 [facility] Comment on above: Performed By: #### U GRUPO, UMAC #### Testing performed at [address] [address] WBC (Bld) [#/Vol] 9.9 10*3/uL Normal 3.6-11.0 [facility] Comment on above: Performed By: #### U GRUPO, UMAC #### Testing performed at [facility] [address] [facility] [place] [address] CBC, EDIF, PLATELETon 2023 ABSOLUTE BASOPHIL COUNT 0.0 10*3/uL 0.0 - 0.2 10*3/uL [facility] Basophils/100 WBC (Bld) 0.3 % 0.0 - 2.0 % [facility] Differential cell count method Nom (Bld) AUTO DIFF % [facility] Eosinophils (Bld) [#/Vol] 0.1 10*3/uL 0.0 - 0.7 10*3/uL [facility] Eosinophils/100 WBC (Bld) 0.5 % 0.0 - 11.0 % [facility] Erythrocyte distribution width (RBC) [Ratio] 14.6 % High 11.5 - 14.5 % [facility] Hematocrit (Bld) [Volume fraction] 32.1 % Low 36.0 - 48.0 % [facility] Hemoglobin (Bld) [Mass/Vol] 10.5 g/dL Low [facility] Interpretation and review of laboratory results Abnormal [facility] Lymphocytes (Bld) [#/Vol] 1.1 10*3/uL Low 1.2 - 3.4 10*3/uL [facility] Lymphocytes/100 WBC (Bld) 11.0 % Low 20.0 - 55.0 % [facility] MCH (RBC) [Entitic mass] 31.4 pg 26.0 - 35.[address] [facility] MCHC (RBC) [Mass/Vol] 32.8 g/dL [facility] MCV (RBC) [Entitic vol] 96.0 fL [facility] Monocytes (Bld) [#/Vol] 1.1 10*3/uL High 0.0 - 0.7 10*3/uL [facility] Monocytes/100 WBC (Bld) 10.8 % High 0.0 - 10.0 % [facility] Neutrophils (Bld) [#/Vol] 7.6 10*3/uL High 1.4 - 6.5 10*3/uL [facility] Neutrophils/100 WBC (Bld) 77.4 % High 37.0 - 75.0 % [facility] Platelet mean volume (Bld) [Entitic vol] 8.[address] [facility] Platelets (Bld) [#/Vol] 226 10*3/uL 130 - 400 10*3/uL [facility] RBC (Bld) [#/Vol] 3.35 10*6/uL Low 4.0 - 5.4 10*6/uL [facility] WBC (Bld) [#/Vol] 9.9 10*3/uL 3.6 - 11.0 10*3/uL [facility] BASIC METABOLIC PANELon - Anion gap [Moles/Vol] 4 mmol/L MMOL/L [facility] Calcium [Mass/Vol] 9.0 mg/dL [facility] Chloride [Moles/Vol] 107 mmol/L [facility] Comment on above: Please note: Triglyc eride levels of 600mg/dL or higher may positively bias chloride results by approximately 2.1 mmol CO2 [Moles/Vol] 26 mmol/L [facility] Creatinine [Mass/Vol] 0.70 mg/dL [facility] GFR COMMENT Average GFR for 70+ years old = 75. [facility] Comment on above: Chronic Kidney disea se, GFR = <60. Kidney failure, GFR = <15. The GFR estimate is not adjusted for extreme body surface area or acute process, nor has it been validated for women or ethnic groups other than and . GFR/1.73 sq M.predicted among blacks MDRD (S/P/Bld) [Vol rate/Area] 103 mL/min/{1.73_m2} ml/min/1.73sq .m [facility] GFR/1.73 sq M.predicted among non-blacks MDRD (S/P/Bld) [Vol rate/Area] 85 mL/min/{1.73_m2} ml/min/1.73sq .m [facility] Glucose post fast [Mass/Vol] 164 mg/dL High [facility] Comment on above: NORMAL <100 mg/dL PREDIABETES 101-126 mg/dL DIABETES 126 mg/dL or higher Interpretation and review of laboratory results Abnormal [facility] Potassium [Moles/Vol] 4.2 mmol/L [facility] Sodium [Moles/Vol] 137 mmol/L [facility] Urea nitrogen [Mass/Vol] 19 mg/dL [facility] BMP FASTINGon 01-13-2024 Anion gap [Moles/Vol] 4 mmol/L Normal [facility] Comment on above: Performed By: #### A CBC, BMPF #### Testing performed at [address] [address] Calcium [Mass/Vol] 9.0 mg/dL Normal 8.4-10.2 [facility] Comment on above: Performed By: #### A CBC, BMPF #### Testing performed at [address] [address] Chloride [Moles/Vol] 107 mmol/L Normal 98-107 [facility] Comment on above: Result Comment: Shonda matthews note: Triglyceride levels of 600mg/dL or higher may positively bias chloride results by approximately 2.1 mmol Performed By: #### A CBC, BMPF #### Testing performed at [address] [address] CO2 [Moles/Vol] 26 mmol/L Normal 22-30 [facility] Comment on above: Performed By: #### A CBC, BMPF #### Testing performed at [address] [address] Creatinine [Mass/Vol] 0.70 mg/dL Normal 0.70-1.20 [facility] Comment on above: Performed By: #### A CBC, BMPF #### Testing performed at [address] [address] EST. GFR, 103 ml/min/1.73sq.m [facility] Comment on above: Performed By: #### A CBC, BMPF #### Testing performed at [address] [place] [address] EST. GFR,Non 85 ml/min/1.73sq.m [facility] Comment on above: Performed By: #### A CBC, BMPF #### Testing performed at [address] [place] [address] GFR Information Average GFR for 70+ years old = 75. 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 Kidney failure, GFR = <15. The GFR estimate is not adjusted for extreme body surface area or acute process, nor has it been validated for women or ethnic groups other than and . Performed By: #### A CBC, BMPF #### Testing performed at [address] [address] Glucose [Mass/Vol] 164 mg/dL High 70-100 [facility] Comment on above: Result Comment: NORMAL <100 mg/dL PREDIABETES 101-126 mg/dL DIABETES 126 mg/dL or higher Performed By: #### A CBC, BMPF #### Testing performed at [address] [address] Potassium [Moles/Vol] 4.2 mmol/L Normal 3.5-5.1 [facility] Comment on above: Performed By: #### A CBC, BMPF #### Testing performed at [address] [address] Sodium [Moles/Vol] 137 mmol/L Normal 137-145 [facility] Comment on above: Performed By: #### A CBC, BMPF #### Testing performed at [address] [address] Urea nitrogen [Mass/Vol] 19 mg/dL Normal 7-20 [facility] Comment on above: Performed By: #### A CBC, BMPF #### Testing performed at [address] [address] CBCon 01-13-2024 ABSOLUTE BAS 0.0 10*3/uL Normal 0.0-0.2 [facility] Comment on above: Performed By: #### A CBC, BMPF #### Testing performed at [address] [address] ABSOLUTE EOS 0.0 10*3/uL Normal 0.0-0.7 [facility] Comment on above: Performed By: #### A CBC, BMPF #### Testing performed at [address] [address] ABSOLUTE NEUTROPHIL COUNT 8.6 10*3/uL High 1.4-6.5 [facility] Comment on above: Performed By: #### A CBC, BMPF #### Testing performed at [address] [address] Basophils/100 WBC (Bld) 0.0 % Normal 0.0-2.0 [facility] Comment on above: Performed By: #### A CBC, BMPF #### Testing performed at [address] [address] DTYPE AUTO DIFF Normal [facility] Comment on above: Performed By: #### A CBC, BMPF #### Testing performed at [address] [address] Eosinophils/100 WBC (Bld) 0.0 % Normal 0.0-11.0 [facility] Comment on above: Performed By: #### A CBC, BMPF #### Testing performed at [address] [address] Lymphocytes (Bld) [#/Vol] 0.6 10*3/uL Low 1.2-3.4 [facility] Comment on above: Performed By: #### A CBC, BMPF #### Testing performed at [address] [address] Lymphocytes/100 WBC (Bld) 5.9 % Low 20.0-55.0 [facility] Comment on above: Performed By: #### A CBC, BMPF #### Testing performed at [address] [address] Monocytes (Bld) [#/Vol] 0.8 10*3/uL High 0.0-0.7 [facility] Comment on above: Performed By: #### A CBC, BMPF #### Testing performed at [address] [address] Monocytes/100 WBC (Bld) 8.3 % Normal 0.0-10.0 [facility] Comment on above: Performed By: #### A CBC, BMPF #### Testing performed at [address] [address] Neutrophils/100 WBC (Bld) 85.8 % High 37.0-75.0 [facility] Comment on above: Performed By: #### A CBC, BMPF #### Testing performed at [address] [place] [address] Erythrocyte distribution width (RBC) [Ratio] 14.5 % Normal 11.5-14.5 [facility] Comment on above: Performed By: #### A CBC BMPF #### Testing performed at [address] [address] Hematocrit (Bld) [Volume fraction] 31.8 % Low 36.0-48.0 [facility] Comment on above: Performed By: #### A CBC, BMPF #### Testing performed at [address] [address] Hemoglobin (Bld) [Mass/Vol] 10.6 g/dL Low 12.0-16.0 [facility] Comment on above: Performed By: #### A CBC BMPF #### Testing performed at [address] [address] MCH (RBC) [Entitic mass] 31.9 pg Normal 26.0-35.0 [facility] Comment on above: Performed By: #### A CBC BMPF #### Testing performed at [address] [address] MCHC (RBC) [Mass/Vol] 33.2 g/dL Normal 27.0-37.0 [facility] Comment on above: Performed By: #### A CBC BMPF #### Testing performed at [address] [address] MCV (RBC) [Entitic vol] 95.9 fL Normal 80.0-100.0 [facility] Comment on above: Performed By: #### A CBC, BMPF #### Testing performed at [address] [address] Platelet mean volume (Bld) [Entitic vol] 8.1 fL Normal 7.4-11.0 [facility] Comment on above: Performed By: #### A CBC, BMPF #### Testing performed at [address] [address] Platelets (Bld) [#/Vol] 228 10*3/uL Normal 130-400 [facility] Comment on above: Performed By: #### A CBC, BMPF #### Testing performed at [address] [place] [address] RBC (Bld) [#/Vol] 3.31 10*6/uL Low 4.0-5.4 [facility] Comment on above: Performed By: #### A CBCCHANCE #### Testing performed at [address] [address] WBC (Bld) [#/Vol] 10.0 10*3/uL Normal 3.6-11.0 [facility] Comment on above: Performed By: #### A CBC, LITOF #### Testing performed at [address] [place] [address] CBC, EDIF, PLATELETon 2023 ABSOLUTE BASOPHIL COUNT 0.0 10*3/uL 0.0 - 0.2 10*3/uL [facility] Basophils/100 WBC (Bld) 0.0 % 0.0 - 2.0 % [facility] Differential cell count method Nom (Bld) AUTO DIFF % [facility] Eosinophils (Bld) [#/Vol] 0.0 10*3/uL 0.0 - 0.7 10*3/uL [facility] Eosinophils/100 WBC (Bld) 0.0 % 0.0 - 11.0 % [facility] Erythrocyte distribution width (RBC) [Ratio] 14.5 % 11.5 - 14.5 % [facility] Hematocrit (Bld) [Volume fraction] 31.8 % Low 36.0 - 48.0 % [facility] Hemoglobin (Bld) [Mass/Vol] 10.6 g/dL Low [facility] Interpretation and review of laboratory results Abnormal [facility] Lymphocytes (Bld) [#/Vol] 0.6 10*3/uL Low 1.2 - 3.4 10*3/uL [facility] Lymphocytes/100 WBC (Bld) 5.9 % Low 20.0 - 55.0 % [facility] MCH (RBC) [Entitic mass] 31.9 pg 26.0 - 35.[address] [facility] MCHC (RBC) [Mass/Vol] 33.2 g/dL [facility] MCV (RBC) [Entitic vol] 95.[address] [facility] Monocytes (Bld) [#/Vol] 0.8 10*3/uL High 0.0 - 0.7 10*3/uL [facility] Monocytes/100 WBC (Bld) 8.3 % 0.0 - 10.0 % [facility] Neutrophils (Bld) [#/Vol] 8.6 10*3/uL High 1.4 - 6.5 10*3/uL [facility] Neutrophils/100 WBC (Bld) 85.8 % High 37.0 - 75.0 % [facility] Platelet mean volume (Bld) [Entitic vol] [address] [facility] Platelets (Bld) [#/Vol] 228 10*3/uL 130 - 400 10*3/uL [facility] RBC (Bld) [#/Vol] 3.31 10*6/uL Low 4.0 - 5.4 10*6/uL [facility] WBC (Bld) [#/Vol] 10.0 10*3/uL 3.6 - 11.0 10*3/uL [facility] ECGOrdered By: Thom estevez on 01-13-[address] [facility] Work Phone: TROPONIN I, HIGH SENSITIVITY on 01-13-2024 Interpretation and review of laboratory results Abnormal [facility] TROPONIN I, HIGH SENSITIVITY 14 pg/mL High 0 - 12 pg/mL [facility] Comment on above: Indeterminant: >12 to 100 pg/mL female >20 to 100 pg/mL male Indicative of myocardial injury. Serial sampling is recommended, a change of greater than or equal to 20 pg/mL is indicative of acute coronary syndrome. [facility] TROPONIN I, HIGH SENSITIVITY 14 pg/mL High 0-12 [facility] Comment on above: Result Comment: Indeterminant: >12 to 100 pg/mL female >20 to 100 pg/mL male Indicative of myocardial injury. Serial sampling is recommended, a change of greater than or equal to 20 pg/mL is indicative of acute coronary syndrome. Performed By: #### [facility] #### Testing performed at [facility] [address] [place] [address] TROPONIN I, HIGH SENSITIVITY 10 pg/mL 0 - 12 pg/mL [facility] Comment on above: Indeterminant: >12 to 100 pg/mL female >20 to 100 pg/mL male Indicative of myocardial injury. Serial sampling is recommended, a change of greater than or equal to 20 pg/mL is indicative of acute coronary syndrome. [facility] TROPONIN I, HIGH SENSITIVITY 10 pg/mL Normal 0-12 [facility] Comment on above: Result Comment: Indeterminant: >12 to 100 pg/mL female >20 to 100 pg/mL male Indicative of myocardial injury. Serial sampling is recommended, a change of greater than or equal to 20 pg/mL is indicative of acute coronary syndrome. Performed By: #### [facility] #### Testing performed at [address] [address] TROPONIN I, HIGH SENSITIVITY 9 pg/mL 0 - 12 pg/mL [facility] Comment on above: Indeterminant: >12 to 100 pg/mL female >20 to 100 pg/mL male Indicative of myocardial injury. Serial sampling is recommended, a change of greater than or equal to 20 pg/mL is indicative of acute coronary syndrome. [facility] TROPONIN I, HIGH SENSITIVITY 9 pg/mL Normal 0-12 [facility] Comment on above: Result Comment: Indeterminant: >12 to 100 pg/mL female >20 to 100 pg/mL male Indicative of myocardial injury. Serial sampling is recommended, a change of greater than or equal to 20 pg/mL is indicative of acute coronary syndrome. Performed By: #### [facility] #### Testing performed at [address] [address] XR PELVIS 1-2 VIEWSon 2023 XR PELVIS [...] Postsurgical findings of left hip arthroplasty. Normal [facility] XR Pelvis 2 Viewson 01-13-20 IMPRESSION: Postsurgical [...] IMPRESSION: Postsurgical findings of left hip arthroplasty. [facility] XR Pelvis 2 ViewsOrdered By: Eyad Aldridge on 01-13-2024 [facility] Work Phone: BASIC METABOLIC PANELon - Anion gap [Moles/Vol] 9 mmol/L MMOL/L [employer] [facility] Calcium [Mass/Vol] 9.1 mg/dL [facility] Chloride [Moles/Vol] 105 mmol/L [facility] [employer] [facility] Comment on above: Please note: Triglyc eride levels of 600mg/dL or higher may positively bias chloride results by approximately 2.1 mmol CO2 [Moles/Vol] 24 mmol/L [facility] Creatinine [Mass/Vol] 0.70 mg/dL [employer] [facility] GFR COMMENT Average GFR for 70+ years old = 75. [facility] Comment on above: Chronic Kidney disea se, GFR = <60. Kidney failure, GFR = <15. The GFR estimate is not adjusted for extreme body surface area or acute process, nor has it been validated for women or ethnic groups other than and . GFR/1.73 sq M.predicted among blacks MDRD (S/P/Bld) [Vol rate/Area] 103 mL/min/{1.73_m2} ml/min/1.73sq .m [facility] GFR/1.73 sq M.predicted among non-blacks MDRD (S/P/Bld) [Vol rate/Area] 85 mL/min/{1.73_m2} ml/min/1.73sq .m [facility] Glucose post fast [Mass/Vol] 179 mg/dL High [facility] Comment on above: NORMAL <100 mg/dL PREDIABETES 101-126 mg/dL DIABETES 126 mg/dL or higher Interpretation and review of laboratory results Abnormal [facility] Potassium [Moles/Vol] 4.0 mmol/L [facility] Sodium [Moles/Vol] 138 mmol/L [facility] Urea nitrogen [Mass/Vol] 16 mg/dL [facility] BMP FASTINGon 01-12-2024 Anion gap [Moles/Vol] 9 mmol/L Normal [facility] Comment on above: Performed By: #### U GRUPO, UMAC #### Testing performed at [address] [address] Calcium [Mass/Vol] 9.1 mg/dL Normal 8.4-10.2 [facility] Comment on above: Performed By: #### U GRUPO, UMAC #### Testing performed at [address] [address] Chloride [Moles/Vol] 105 mmol/L Normal 98-107 [facility] Comment on above: Result Comment: Shonda matthews note: Triglyceride levels of 600mg/dL or higher may positively bias chloride results by approximately 2.1 mmol Performed By: #### U GRUPO, UMAC #### Testing performed at [address] [address] CO2 [Moles/Vol] 24 mmol/L Normal 22-30 [facility] Comment on above: Performed By: #### U GRUPO, UMAC #### Testing performed at [address] [address] Creatinine [Mass/Vol] 0.70 mg/dL Normal 0.70-1.20 [facility] Comment on above: Performed By: #### U GRUPO, UMAC #### Testing performed at [address] [address] EST. GFR, 103 ml/min/1.73sq.m Normal [facility] Comment on above: Performed By: #### U GRUPO, UMAC #### Testing performed at [address] [address] EST. GFR,Non 85 ml/min/1.73sq.m Normal [facility] Comment on above: Performed By: #### U GRUPO, UMAC #### Testing performed at [address] [address] GFR Information Average GFR for 70+ years old = 75. 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 Kidney failure, GFR = <15. The GFR estimate is not adjusted for extreme body surface area or acute process, nor has it been validated for women or ethnic groups other than and . Performed By: #### U GRUPO, UMAC #### Testing performed at [place] [id number] Glucose [Mass/Vol] 179 mg/dL High 70-100 [facility] Comment on above: Result Comment: NORMAL <100 mg/dL PREDIABETES 101-126 mg/dL DIABETES 126 mg/dL or higher Performed By: #### U GRUPO, UMAC #### Testing performed at [address] [address] Potassium [Moles/Vol] 4.0 mmol/L Normal 3.5-5.1 [facility] Comment on above: Performed By: #### U GRUPO, UMAC #### Testing performed at [address] [address] Sodium [Moles/Vol] 138 mmol/L Normal 137-145 [facility] Comment on above: Performed By: #### U GRUPO, UMAC #### Testing performed at [address] [address] Urea nitrogen [Mass/Vol] 16 mg/dL Normal 7-20 [facility] Comment on above: Performed By: #### U GRUPO, UMAC #### Testing performed at [address] [address] CBCon 01-12-2024 ABSOLUTE BAS 0.0 10*3/uL Normal 0.0-0.2 [facility] Comment on above: Performed By: #### U GRUPO, UMAC #### Testing performed at [address] [address] ABSOLUTE EOS 0.0 10*3/uL Normal 0.0-0.7 [facility] Comment on above: Performed By: #### U GRUPO, UMAC #### Testing performed at [address] [address] ABSOLUTE NEUTROPHIL COUNT 9.4 10*3/uL High 1.4-6.5 [facility] Comment on above: Performed By: #### U GRUPO, UMAC #### Testing performed at [address] [address] Basophils/100 WBC (Bld) 0.1 % Normal 0.0-2.0 [facility] Comment on above: Performed By: #### U GRUPO, UMAC #### Testing performed at [address] [address] DTYPE AUTO DIFF Normal [facility] Comment on above: Performed By: #### U GRUPO, UMAC #### Testing performed at [address] [address] Eosinophils/100 WBC (Bld) 0.0 % Normal 0.0-11.0 [facility] Comment on above: Performed By: #### U GRUPO, UMAC #### Testing performed at [address] [address] Lymphocytes (Bld) [#/Vol] 0.6 10*3/uL Low 1.2-3.4 [facility] Comment on above: Performed By: #### U GRUPO, UMAC #### Testing performed at [address] [address] Lymphocytes/100 WBC (Bld) 5.9 % Low 20.0-55.0 [facility] Comment on above: Performed By: #### U GRUPO, UMAC #### Testing performed at [address] [address] Monocytes (Bld) [#/Vol] 0.5 10*3/uL Normal 0.0-0.7 [facility] Comment on above: Performed By: #### U GRUPO, UMAC #### Testing performed at [address] [address] Monocytes/100 WBC (Bld) 4.5 % Normal 0.0-10.0 [facility] Comment on above: Performed By: #### U GRUPO, UMAC #### Testing performed at [address] [address] Neutrophils/100 WBC (Bld) 89.5 % High 37.0-75.0 [facility] Comment on above: Performed By: #### U GRUPO, UMAC #### Testing performed at [address] [address] Erythrocyte distribution width (RBC) [Ratio] 14.3 % Normal 11.5-14.5 [facility] Comment on above: Performed By: #### U GRUPO, UMAC #### Testing performed at [address] [address] Hematocrit (Bld) [Volume fraction] 33.3 % Low 36.0-48.0 [facility] Comment on above: Performed By: #### U GRUPO, UMAC #### Testing performed at [address] [address] Hemoglobin (Bld) [Mass/Vol] 10.9 g/dL Low 12.0-16.0 [facility] Comment on above: Performed By: #### U GRUPO, UMAC #### Testing performed at [address] [address] MCH (RBC) [Entitic mass] 31.4 pg Normal 26.0-35.0 [facility] Comment on above: Performed By: #### U GRUPO, UMAC #### Testing performed at [address] [address] MCHC (RBC) [Mass/Vol] 32.8 g/dL Normal 27.0-37.0 [facility] Comment on above: Performed By: #### U GRUPO, UMAC #### Testing performed at [address] [address] MCV (RBC) [Entitic vol] 95.7 fL Normal 80.0-100.0 [facility] Comment on above: Performed By: #### U GRUPO, UMAC #### Testing performed at [address] [address] Platelet mean volume (Bld) [Entitic vol] 8.2 fL Normal 7.4-11.0 [facility] Comment on above: Performed By: #### U GRUPO, UMAC #### Testing performed at [address] [address] Platelets (Bld) [#/Vol] 247 10*3/uL Normal 130-400 [facility] Comment on above: Performed By: #### U GRUPO, UMAC #### Testing performed at [address] [address] RBC (Bld) [#/Vol] 3.48 10*6/uL Low 4.0-5.4 [facility] Comment on above: Performed By: #### U GRUPO, UMAC #### Testing performed at [address] [address] WBC (Bld) [#/Vol] 10.5 10*3/uL Normal 3.6-11.0 [facility] Comment on above: Performed By: #### U GRUPO, U[facility] #### Testing performed at [address] [address] CBC, EDIF, PLATELETon 2023 ABSOLUTE BASOPHIL COUNT 0.0 10*3/uL 0.0 - 0.2 10*3/uL [facility] Basophils/100 WBC (Bld) 0.1 % 0.0 - 2.0 % [facility] Differential cell count method Nom (Bld) AUTO DIFF % [facility] Eosinophils (Bld) [#/Vol] 0.0 10*3/uL 0.0 - 0.7 10*3/uL [facility] Eosinophils/100 WBC (Bld) 0.0 % 0.0 - 11.0 % [facility] Erythrocyte distribution width (RBC) [Ratio] 14.3 % 11.5 - 14.5 % [facility] Hematocrit (Bld) [Volume fraction] 33.3 % Low 36.0 - 48.0 % [facility] Hemoglobin (Bld) [Mass/Vol] 10.9 g/dL Low [facility] Interpretation and review of laboratory results Abnormal [facility] Lymphocytes (Bld) [#/Vol] 0.6 10*3/uL Low 1.2 - 3.4 10*3/uL [facility] Lymphocytes/100 WBC (Bld) 5.9 % Low 20.0 - 55.0 % [facility] MCH (RBC) [Entitic mass] 31.4 pg 26.0 - 35.[address] [facility] MCHC (RBC) [Mass/Vol] 32.8 g/dL [facility] MCV (RBC) [Entitic vol] 95.[address] [facility] Monocytes (Bld) [#/Vol] 0.5 10*3/uL 0.0 - 0.7 10*3/uL [facility] Monocytes/100 WBC (Bld) 4.5 % 0.0 - 10.0 % [facility] Neutrophils (Bld) [#/Vol] 9.4 10*3/uL High 1.4 - 6.5 10*3/uL [facility] Neutrophils/100 WBC (Bld) 89.5 % High 37.0 - 75.0 % [facility] Platelet mean volume (Bld) [Entitic vol] 8.[address] [facility] Platelets (Bld) [#/Vol] 247 10*3/uL 130 - 400 10*3/uL [facility] RBC (Bld) [#/Vol] 3.48 10*6/uL Low 4.0 - 5.4 10*6/uL [facility] WBC (Bld) [#/Vol] 10.5 10*3/uL 3.6 - 11.0 10*3/uL [facility] GENERAL PROCEDUREOrdered By: Vj Alvarez on 01-11-[address] [facility] Work Phone: Radiology Study observation (narrative) [facility] Work Phone: PROTIMEon 01-11-2024 INR Coag (PPP) [Relative time] 1.09 {INR} Normal 0.85-1.10 [facility] Comment on above: Result Comment: 2.0-3.0 THERAPEUTIC RANGE 2.5-3.5 MECHANICAL VALVE RANGE Performed By: #### P T #### Testing performed at [address] [place] [address] PT Coag (PPP) [Time] 14.2 s Normal 11.8-14.4 [facility] Comment on above: Performed By: #### P T #### Testing performed at [address] [address] PROTIME-INRon 01-11-2024 INR Coag (PPP) [Relative time] 1.09 {INR} 0.85 - 1.[address] [facility] Comment on above: 2.0-3.0 THERAPEUTIC RANGE 2.5-3.5 MECHANICAL VALVE RANGE PT Coag (PPP) [Time] 14.2 s [facility] REPEAT ABO/RHon 01-11-2024 REPEAT ABO/RH Positive Normal [facility] Comment on above: Performed By: #### U GRUPO, [facility]MAC #### Testing performed at [address] [address] REPEAT ABO/RH (D) TYPINGon 0 01-11-2024 ABO and Rh group Nom (Bld ) Positive [facility] XR Pelvis 2 Viewson 01-11-20 24 Radiology Study observation (narrative) [facility] URINE CULTUREon 12-18-2023 Bacteria identified Cx Nom (U) SPECIMEN DESCRIPTION URINE CLEAN CATCH UA DIPSTICK LEUKOCYTE POSITIVE * Result Note: NITRITE POSITIVE * COLONY COUNT >100,000 C/C/ML CULTURE KLEBSIELLA PNEUMONIAE * Result Note: Testing performed at [place] [address] * REPORT STATUS 12/18/2023 * Result Note: [...] CEFEPIME <=1 SUSCEPTIBLE CEFTAZIDIME <=1 SUSCEPTIBLE Normal [facility] Comment on above: Performed By: #### A URNC #### Testing performed at [address] [address] Testing performed at [address] [place] [address] CBCon 12-16-2023 ABSOLUTE BAS 0.1 10*3/uL Normal 0.0-0.2 [facility] Comment on above: Performed By: #### U GRUPO, UMAC #### Testing performed at [address] [address] ABSOLUTE EOS 0.1 10*3/uL Normal 0.0-0.7 [facility] Comment on above: Performed By: #### U GRUPO, UMAC #### Testing performed at [address] [place] [address] ABSOLUTE NEUTROPHIL COUNT 3.5 10*3/uL Normal 1.4-6.5 [facility] Comment on above: Performed By: #### U GRUPO, [facility]MAC #### Testing performed at [address] [address] Basophils/100 WBC (Bld) 0.9 % Normal 0.0-2.0 [facility] Comment on above: Performed By: #### U GRUPO, UMAC #### Testing performed at [address] [place] [address] DTYPE AUTO DIFF Normal [facility] Comment on above: Performed By: #### U GRUPO, UMAC #### Testing performed at [address] [place] [address] Eosinophils/100 WBC (Bld) 1.8 % Normal 0.0-11.0 [facility] Comment on above: Performed By: #### U GRUPO, [facility]MAC #### Testing performed at [address] [address] Lymphocytes (Bld) [#/Vol] 1.4 10*3/uL Normal 1.2-3.4 [facility] Comment on above: Performed By: #### U GRUPO, UMAC #### Testing performed at [facility] [facility] [address] [place] [address] Lymphocytes/100 WBC (Bld) 25.0 % Normal 20.0-55.0 [facility] Comment on above: Performed By: #### U GRUPO, UMAC #### Testing performed at [address] [address] Monocytes (Bld) [#/Vol] 0.5 10*3/uL Normal 0.0-0.7 [facility] Comment on above: Performed By: #### U GRUPO, UMAC #### Testing performed at [address] [address] Monocytes/100 WBC (Bld) 9.1 % Normal 0.0-10.0 [facility] Comment on above: Performed By: #### U GRUPO, UMAC #### Testing performed at [address] [address] Neutrophils/100 WBC (Bld) 63.2 % Normal 37.0-75.0 [facility] Comment on above: Performed By: #### U GRUPO, UMAC #### Testing performed at [address] [address] Erythrocyte distribution width (RBC) [Ratio] 14.9 % High 11.5-14.5 [facility] Comment on above: Performed By: #### U GRUPO, [facility]MAC #### Testing performed at [address] [address] Hematocrit (Bld) [Volume fraction] 39.2 % Normal 36.0-48.0 [facility] Comment on above: Performed By: #### U GRUPO, [facility]MAC #### Testing performed at [address] [address] Hemoglobin (Bld) [Mass/Vol] 12.8 g/dL Normal 12.0-16.0 [facility] Comment on above: Performed By: #### U GRUPO, UMAC #### Testing performed at [address] [address] MCH (RBC) [Entitic mass] 31.1 pg Normal 26.0-35.0 [facility] Comment on above: Performed By: #### U GRUPO, UMAC #### Testing performed at [facility] [place] [facility] [address] [place] [address] MCHC (RBC) [Mass/Vol] 32.6 g/dL Normal 27.0-37.0 [facility] Comment on above: Performed By: #### U GRUPO, UMAC #### Testing performed at [address] [address] MCV (RBC) [Entitic vol] 95.4 fL Normal 80.0-100.0 [facility] Comment on above: Performed By: #### U GRUPO, UMAC #### Testing performed at [address] [address] Platelet mean volume (Bld) [Entitic vol] 8.8 fL Normal 7.4-11.0 [facility] Comment on above: Performed By: #### U GRUPO, UMAC #### Testing performed at [address] [address] Platelets (Bld) [#/Vol] 298 10*3/uL Normal 130-400 [facility] Comment on above: Performed By: #### U GRUPO, UMAC #### Testing performed at [address] [address] RBC (Bld) [#/Vol] 4.11 10*6/uL Normal 4.0-5.4 [facility] Comment on above: Performed By: #### U GRUPO, UMAC #### Testing performed at [address] [address] WBC (Bld) [#/Vol] 5.6 10*3/uL Normal 3.6-11.0 [facility] Comment on above: Performed By: #### U GRUPO, UMAC #### Testing performed at [address] [address] CMP FASTINGon 12-16-2023 A:G RATIO 1.3 RATIO Normal [facility] Comment on above: Performed By: #### U GRUPO, UMAC #### Testing performed at [address] [address] ALBUMIN 4.0 G/dl Normal 3.5-5.0 [facility] Comment on above: Performed By: #### U GRUPO, UMAC #### Testing performed at [address] [place] [address] ALP [Catalytic activity/Vol] 89 U/L Normal 38-126 [facility] Comment on above: Performed By: #### U GRUOP, UMAC #### Testing performed at [address] [address] ALT [Catalytic activity/Vol] 16 U/L Normal <35 [facility] Comment on above: Performed By: #### U GRUPO, UMAC #### Testing performed at [address] [address] AST [Catalytic activity/Vol] 25 U/L Normal 14-36 [facility] Comment on above: Performed By: #### U GRUPO, UMAC #### Testing performed at [address] [address] Bilirubin [Mass/Vol] 0.3 mg/dL Normal 0.2-1.3 [facility] Comment on above: Performed By: #### U GRUPO, UMAC #### Testing performed at [address] [address] Calcium [Mass/Vol] 9.9 mg/dL Normal 8.4-10.2 [facility] Comment on above: Performed By: #### U GRUPO, UMAC #### Testing performed at [address] [address] Chloride [Moles/Vol] 107 mmol/L Normal 98-107 [facility] Comment on above: Result Comment: Shonda matthews note: Triglyceride levels of 600mg/dL or higher may positively bias chloride results by approximately 2.1 mmol Performed By: #### U GRUPO, UMAC #### Testing performed at [address] [address] CO2 [Moles/Vol] 28 mmol/L Normal 22-30 [facility] Comment on above: Performed By: #### U GRUPO, UMAC #### Testing performed at [address] [address] Creatinine [Mass/Vol] 0.80 mg/dL Normal 0.70-1.20 [facility] Comment on above: Performed By: #### U GRUPO, UMAC #### Testing performed at [facility] [place] [facility] [address] [place] [address] EST. GFR, 89 ml/min/1.73sq.m [facility] Comment on above: Performed By: #### U GRUPO, UMAC #### Testing performed at [address] [address] EST. GFR,Non 73 ml/min/1.73sq.m Normal [facility] Comment on above: Performed By: #### U GRUPO, UMAC #### Testing performed at [address] [address] GFR Information Average GFR for 70+ years old = 75. 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 Kidney failure, GFR = <15. The GFR estimate is not adjusted for extreme body surface area or acute process, nor has it been validated for women or ethnic groups other than and . Performed By: #### U GRUPO, UMAC #### Testing performed at [address] [address] Glucose [Mass/Vol] 115 mg/dL High 70-100 [facility] Comment on above: Result Comment: NORMAL <100 mg/dL PREDIABETES 101-126 mg/dL DIABETES 126 mg/dL or higher Performed By: #### U GRUPO, UMAC #### Testing performed at [address] [address] Potassium [Moles/Vol] 4.0 mmol/L Normal 3.5-5.1 [facility] Comment on above: Performed By: #### U GRUPO, UMAC #### Testing performed at [address] [address] Protein [Mass/Vol] 7.2 g/dL Normal 6.3-8.2 [facility] Comment on above: Performed By: #### U GRUPO, UMAC #### Testing performed at [address] [address] Sodium [Moles/Vol] 140 mmol/L Normal 137-145 [facility] Comment on above: Performed By: #### U GRUPO, UMAC #### Testing performed at [address] [address] Urea nitrogen [Mass/Vol] 19 mg/dL Normal 7-20 [facility] Comment on above: Performed By: #### U GRUPO, UMAC #### Testing performed at [address] [address] HEMOGLOBIN A1Con 12-16-2023 Glucose [Mass/Vol] 117 mg/dL Normal [facility] Comment on above: Performed By: #### H A1CT #### Testing performed at [address] [address] HbA1c (Bld) [Mass fraction] 5.7 % Normal 0-6 [facility] Comment on above: Result Comment: NORMAL <5.7% PREDIABETES 5.7-6.4% DIABETES 6.5% OR HIGHER Performed By: #### H A1CT #### Testing performed at [address] [address] MRSA SCREENon 12-16-2023 MRSA DNA SMILEY+probe Ql (Unsp spec) Negative Normal NEGATIVE [facility] Comment on above: Performed By: #### M RSAST #### Testing performed at [address] [address] STAPH AUREUS SCREEN Positive Abnormal NEGATIVE [facility] Comment on above: Result Comment: TEST ING PERFORMED BY PCR Performed By: #### M RSAST #### Testing performed at [address] [address] PROTIMEon 12-16-2023 INR Coag (PPP) [Relative time] 1.47 {INR} High 0.85-1.10 [facility] Comment on above: Result Comment: 2.0-3.0 THERAPEUTIC RANGE 2.5-3.5 MECHANICAL VALVE RANGE Performed By: #### U GRUPO, UMAC #### Testing performed at [address] [address] PT Coag (PPP) [Time] 17.9 s High 11.8-14.4 [facility] Comment on above: Performed By: #### U GRUPO, UMAC #### Testing performed at [address] [address] TYPE AND SCREEN CROSSMATCH C ONVERTIBLEon 12-16-2023 TYPE AND SCREEN CROSSMATCH CONVERTIBLE WORKUP EXPIRES 01/13/2024,2359 ABO/RH(D) O POSITIVE ANTIBODY SCREEN NEGATIVE ARM BAND NUMBER [id number] Normal [facility] Comment on above: Performed By: #### U GRUPO, UMAC #### Testing performed at [address] [address] URINE MACROSCOPICon 12-16-19 24 Bilirubin Ql (U) Negative Normal NEGATIVE [facility] Comment on above: Performed By: #### U GRUPO, UMAC #### Testing performed at [address] [address] Clarity (U) SLIGHTLY CLOUDY Abnormal CLEAR [facility] Comment on above: Performed By: #### U GRUPO, UMAC #### Testing performed at [address] [address] Color (U) YELLOW Normal YELLOW [facility] Comment on above: Performed By: #### U GRUPO, UMAC #### Testing performed at [address] [address] Glucose Ql (U) Negative Normal NEGATIVE [facility] Comment on above: Performed By: #### U GRUPO, UMAC #### Testing performed at [address] [address] pH (U) 5.5 [pH] Normal 5.0-7.0 [facility] Comment on above: Performed By: #### U GRUPO, UMAC #### Testing performed at [address] [address] Protein (U) [Mass/Vol] 30 mg/dL Abnormal NEGATIVE [facility] Comment on above: Performed By: #### U GRUPO, UMAC #### Testing performed at [address] [address] URINE HEMOGLOBIN MODERATE Abnormal NEGATIVE [facility] Comment on above: Performed By: #### U GRUPO, UMAC #### Testing performed at [address] [address] URINE KETONE Negative Normal NEGATIVE [facility] Comment on above: Performed By: #### U GRUPO, UMAC #### Testing performed at [address] [address] URINE LEUKOTEST SMALL Abnormal NEGATIVE [facility] Comment on above: Performed By: #### U GRUPO, UMAC #### Testing performed at [address] [place] [address] URINE NITRATES Positive Abnormal NEGATIVE [facility] Comment on above: Performed By: #### U GRUPO, UMAC #### Testing performed at [address] [place] [address] URINE SPEC GRAVITY 1.025 Normal 1.010-1.025 [facility] Comment on above: Performed By: #### U GRUPO, UMAC #### Testing performed at [address] [place] [address] Urobilinogen Qn (U) 0.2 {Monique'U}/dL Normal 0.2-1.0 [facility] Comment on above: Performed By: #### U GRUPO, UMAC #### Testing performed at [address] [address] URINE MICROSCOPICon 12-16-19 24 BACTERIA 3+ Abnormal NEGATIVE [facility] Comment on above: Performed By: #### U GRUPO, UMAC #### Testing performed at [address] [place] [address] CASTS NONE Normal [facility] Comment on above: Performed By: #### U GRUPO, UMAC #### Testing performed at [address] [address] CRYSTAL NONE Normal [facility] Comment on above: Performed By: #### U GRUPO, UMAC #### Testing performed at [address] [place] [address] Epithelial cells LM Ql (Urine sed) 1 TO 5 Normal [facility] Comment on above: Performed By: #### U GRUPO, UMAC #### Testing performed at [address] [place] [address] Mucus Ql (Urine sed) Negative Normal NEGATIVE [facility] Comment on above: Performed By: #### U GRUPO, UMAC #### Testing performed at [address] [place] [address] URINE COMMENT REFLEX CULTURE PER ESTABLISHED CRITERIA. Normal [facility] Comment on above: Performed By: #### U GRUPO, UMAC #### Testing performed at [address] [address] URINE RBC'S 1 TO 5 Normal NEGATIVE [facility] Comment on above: Performed By: #### U GRUPO, UMAC #### Testing performed at [address] [address] URINE WBC'S TOO NUMEROUS TO COUNT Abnormal NEGATIVE [facility] Comment on above: Performed By: #### U GRUPO, UMAC #### Testing performed at [address] [address] CBC AND AUTO DIFFon 09-18-19 24 ABSOLUTE BASOPHIL 0.1 X10E9/L Normal 0.0-0.2 [facility] Comment on above: Performed By: #### C BCA, CMP, 89944-7, 02649-8, 3084-1, 3016- 3, 3024-7, 3051-0, 2284-8, 2132-03 #### [facility] ([id number]) [address], [address] [place] [address] ABSOLUTE NEUTROPHIL 4.0 X10E9/L Normal 1.5-6.6 [facility] Comment on above: Performed By: #### C BCA, CMP, 48001-6, 17323-7, 3084-1, 3016- 3, 3024-7, 3051-0, 2284-8, 2132-03 #### [facility] ([id number]) [address], [address] [place] [address] Basophils/100 WBC (Bld) 1.0 % Normal [facility] Comment on above: Performed By: #### C BCA, CMP, 61136-4, 11914-2, 3084-1, 3016- 3, 3024-7, 3051-0, 2284-8, 2131-9 #### [facility] ([id number]) [address], [address] [place] [address] Eosinophils (Bld) [#/Vol] 0.1 10*3/uL Normal 0.0-0.4 [facility] Comment on above: Performed By: #### C BCA, CMP, 44516-0, 40311-6, 3084-1, 3016- 3, 3024-7, 3051-0, 2284-8, 2132-03 #### [facility] ([id number]) [address], [address] [place] [address] Eosinophils/100 WBC (Bld) 1.8 % Normal [facility] Comment on above: Performed By: #### C BCA, CMP, 92310-8, 88377-2, 3084-1, 3016- 3, 3024-7, 3051-0, 2284-8, 2132-03 #### [facility] ([id number]) [address], [address] [place] [address] Erythrocyte distribution width (RBC) [Ratio] 15.2 % High 11.5-15.0 [facility] Comment on above: Performed By: #### C BCA, CMP, 99575-4, 94239-7, 3084-1, 3016- 3, 3024-7, 3051-0, 2284-8, 2132-03 #### [facility] ([id number]) [address], [address] [place] [address] Hematocrit (Bld) [Volume fraction] 36.9 % Normal 35-47 [facility] Comment on above: Performed By: #### C BCA, CMP, 25446-9, 96561-0, 3084-1, 3016- 3, 3024-7, 3051-0, 2284-8, 2132-03 #### [facility] ([id number]) [address], [address] [place] [address] Hemoglobin (Bld) [Mass/Vol] 12.3 g/dL Normal 11.7-15.5 [facility] Comment on above: Performed By: #### C BCA, CMP, 71618-5, 78476-5, 3084-1, 3016- 3, 3024-7, 3051-0, 2284-8, 2132-03 #### [facility] ([id number]) [address], [address] [place] [address] Lymphocytes (Bld) [#/Vol] 1.5 10*3/uL Normal 1.0-3.5 [facility] Comment on above: Performed By: #### C BCA, CMP, 22308-7, 71425-2, 3084-1, 3016- 3, 3024-7, 3051-0, 2284-8, 2132-03 #### [facility] ([id number]) [address], [address] [place] [address] Lymphocytes/100 WBC (Bld) 23.4 % Normal [facility] Comment on above: Performed By: #### C BCA, CMP, 03609-6, 39487-4, 3084-1, 3016- 3, 3024-7, 3051-0, 2283-8, 2132-03 #### [facility] ([id number]) [address], [address] [place] [address] MCH (RBC) [Entitic mass] 30.8 pg Normal 27-34 [facility] Comment on above: Performed By: #### C BCA, CMP, 54629-2, 41120-5, 3084-1, 3016- 3, 3024-7, 3051-0, 228-8, 2132-03 #### [facility] ([id number]) [address], [address] [place] [address] MCHC (RBC) [Mass/Vol] 33.3 g/dL Normal 32-36 [facility] Comment on above: Performed By: #### C BCA, CMP, 02657-8, 62003-9, 3084-1, 3016- 3, 3024-7, 3051-0, 228-8, 2132-03 #### [facility] ([id number]) [address], [address] [place] [address] MCV (RBC) [Entitic vol] 93 fL Normal 80-100 [facility] Comment on above: Performed By: #### C BCA, CMP, 10991-5, 97696-9, 3084-1, 3016- 3, 3024-7, 3051-0, 2284-8, 2132-03 #### [facility] ([id number]) [address], [address] [place] [address] Monocytes (Bld) [#/Vol] 0.6 10*3/uL Normal 0-0.9 [facility] Comment on above: Performed By: #### C BCA, CMP, 14866-2, 59098-9, 3084-1, 3016- 3, 3024-7, 3051-0, 2283-8, 2132-03 #### [facility] ([id number]) [address], [address] [place] [address] Monocytes/100 WBC (Bld) 9.2 % Normal [facility] Comment on above: Performed By: #### C BCA, CMP, 13949-2, 25384-5, 3084-1, 3016- 3, 3024-7, 3051-0, 2283-8, 2132-03 #### [facility] ([id number]) [address], [address] [place] [address] Neutrophils/100 WBC (Bld) 64.6 % Normal [facility] Comment on above: Performed By: #### C BCA, CMP, 66345-2, 93098-1, 3084-1, 3016- 3, 3024-7, 3051-0, 2284-8, 2132-03 #### [facility] ([id number]) [address] [place] [address] Platelet mean volume (Bld) [Entitic vol] 8.0 fL Normal 7-12 [facility] Comment on above: Performed By: #### C BCA, CMP, 13426-3, 11921-6, 3084-1, 3016- 3, 3024-7, 3051-0, 2284-8, 9 #### [facility] ([id number]) [address], [address] [place] [address] Platelets (Bld) [#/Vol] 492 10*3/uL High 150-450 [facility] Comment on above: Performed By: #### C BCA, CMP, 77400-4, 25978-7, 3084-1, 3016- 3, 3024-7, 3051-0, 2284-8, 2132-03 #### [facility] ([id number]) [address], [address] [place] [address] RBC COUNT 3.99 X10E12/L Normal 3.80-5.20 [facility] Comment on above: Performed By: #### C BCA, CMP, 99368-9, 14957-2, 3084-1, 3016- 3, 3024-7, 3051-0, 2284-8, 2132-03 #### [facility] ([id number]) [address], [address] [place] [address] WBC (Bld) [#/Vol] 6.2 10*3/uL Normal 4.0-11.0 [facility] Comment on above: Performed By: #### C BCA, CMP, 22275-0, 88243-8, 3084-1, 3016- 3, 3024-7, 3051-0, 2284-8, 2132-03 #### [facility] ([id number]) [address] [place] [address] COMPREHENSIVE METABOLIC PANE Jarad 09-18-2023 Albumin [Mass/Vol] 3.8 g/dL Normal 3.2-5.3 [facility] Comment on above: Performed By: #### C BCA, CMP, 06709-6, 53220-0, 3084-1, 3016- 3, 3024-7, 3051-0, 2284-8, 2132-9 #### [facility] ([id number]) [address] [place] [address] ALP [Catalytic activity/Vol] 92 U/L Normal 39-130 [facility] Comment on above: Performed By: #### C BCA, CMP, 08449-0, 89634-5, 3084-1, 3016- 3, 3024-7, 3051-0, 2284-8, 2131-9 #### [facility] ([id number]) [address] [place] [address] ALT [Catalytic activity/Vol] 9 U/L Normal 0-31 [facility] Comment on above: Performed By: #### C BCA, CMP, 97887-8, 81859-9, 3084-1, 3016- 3, 3024-7, 3051-0, 2284-8, 2131-9 #### [facility] ([id number]) [address] [place] [address] Anion gap [Moles/Vol] 9 mmol/L Normal 5-15 [facility] Comment on above: Performed By: #### C BCA, CMP, 53406-6, 35339-5, 3084-1, 3016- 3, 3024-7, 3051-0, 2284-8, 2131-9 #### [facility] ([id number]) [address] [place] [address] AST [Catalytic activity/Vol] 16 U/L Normal 0-41 [facility] Comment on above: Performed By: #### C BCA, CMP, 52547-3, 58870-1, 3084-1, 3016- 3, 3024-7, 3051-0, 2284-8, 2131-9 #### [facility] ([id number]) [address], [address] [place] [address] Bilirubin [Mass/Vol] 0.5 mg/dL Normal 0.3-1.2 [facility] Comment on above: Performed By: #### C BCA, CMP, 72124-1, 58401-8, 3084-1, 3016- 3, 3024-7, 3051-0, 2284-8, 2132-03 #### [facility] ([id number]) [address] [place] [address] Calcium [Mass/Vol] 9.9 mg/dL Normal 8.5-10.5 [facility] Comment on above: Performed By: #### C BCA, CMP, 35498-9, 10374-8, 3084-1, 3016- 3, 3024-7, 3051-0, 2284-8, 2132-03 #### [facility] ([id number]) [address], [address] [place] [address] Chloride [Moles/Vol] 102 mmol/L Normal 98-109 [facility] Comment on above: Performed By: #### C BCA, CMP, 61777-1, 28456-3, 3084-1, 3016- 3, 3024-7, 3051-0, 228-8, 2132-03 #### [facility] ([id number]) [address] [place] [address] CO2 [Moles/Vol] 27 mmol/L Normal 22-32 [facility] Comment on above: Performed By: #### C BCA, CMP, 70588-9, 56183-0, 3084-1, 3016- 3, 3024-7, 3051-0, 2284-8, 2132-03 #### [facility] ([id number]) [address] [place] [address] Creatinine [Mass/Vol] 0.75 mg/dL Normal 0.40-1.00 [facility] Comment on above: Result Comment: METH OD TRACEABLE TO IDMS STANDARD Performed By: #### C BCA, CMP, 63090-5, 31676-4, 3084-1, 3016-3, 3024-7, 3051-0, 2284-8, 2132-03 #### [facility] ([id number]) [address], [address] [place] [address] GFR/1.73 sq M.predicted among non-blacks MDRD (S/P/Bld) [Vol rate/Area] 80 mL/min/{1.73_m2} Normal >59 [facility] Comment on above: Result Comment: Reported eGFR is based on the CKD-EPI 2020 equation that does not use a race coefficient. Performed By: #### C BCA, CMP, 88025-7, 95910-3, 3084-1, 3016-3, 3024-7, 3051-0, 2283-8, 2132-03 #### [facility] ([id number]) [address], [address] [place] [address] Glucose [Mass/Vol] 98 mg/dL Normal 65-99 [facility] Comment on above: Performed By: #### C BCA, CMP, 68352-5, 19142-7, 3084-1, 3016- 3, 3024-7, 3051-0, 2283-8, 2132-03 #### [facility] ([id number]) [address], [address] [place] [address] Potassium [Moles/Vol] 4.4 mmol/L Normal 3.5-5.0 [facility] Comment on above: Performed By: #### C BCA, CMP, 43899-7, 08312-2, 3084-1, 3016- 3, 3024-7, 3051-0, 2284-8, 2132-03 #### [facility] ([id number]) [address], [address] [place] [address] Protein [Mass/Vol] 7.5 g/dL Normal 6.0-8.0 [facility] Comment on above: Performed By: #### C BCA, CMP, 61617-3, 44281-4, 3084-1, 3016- 3, 3024-7, 3051-0, 2284-8, 2132-03 #### [facility] ([id number]) [address], [address] [place] [address] Sodium [Moles/Vol] 138 mmol/L Normal 134-146 [facility] Comment on above: Performed By: #### C BCA, CMP, 99649-9, 38004-1, 3084-1, 3016- 3, 3024-7, 3051-0, 2284-8, 2132-03 #### [facility] ([id number]) [address], [address] [place] [address] Urea nitrogen [Mass/Vol] 21 mg/dL Normal 5-27 [facility] Comment on above: Performed By: #### C BCA, CMP, 48770-6, 54730-0, 3084-1, 3016- 3, 3024-7, 3051-0, 2284-8, 2132-03 #### [facility] ([id number]) [address], [address] [place] [address] FREE T3on 09-18-2023 Free T3 [Mass/Vol] 3.02 pg/mL Normal 2.50-3.90 [facility] Comment on above: Performed By: #### C BCA, CMP, 75719-2, 48371-8, 3084-1, 3016- 3, 3024-7, 3051-0, 2284-8, 2132-03 #### [facility] ([id number]) [address], [address] [place] [address] FREE T4on 09-18-2023 Free T4 [Mass/Vol] 1.24 ng/dL Normal 0.61-1.60 [facility] Comment on above: Performed By: #### C BCA, CMP, 27348-7, 96887-7, 3084-1, 3016- 3, 3024-7, 3051-0, 2284-8, 9 #### [facility] ([id number]) [address] [place] [address], [address] [place] [address] Folate [Mass/Vol]on 09-18-19 FOLIC ACID 16.5 ng/mL Normal >5.8 [facility] Comment on above: Result Comment: NEW REFERENCE RANGE Performed By: #### C RIRI, CMP, 28513-8, 98801-4, 3084-1, 3016-3, 3024-7, 3051-0, 2284-8, 9 #### [facility] ([id number]) [address] [place] [address], [facility] [address] [place] [address] HGB A1C (GLYCO-HGB)on 2023 Glucose [Mass/Vol] 120 mg/dL Normal [facility] Comment on above: Performed By: #### C RIRI, CMP, 35782-9, 91772-7, 3084-1, 3016- 3, 3024-7, 3051-0, 2284-8, 2132-03 #### [facility] ([id number]) [address] [place] [address], [facility] [address] [place] [address] HbA1c (Bld) [Mass fraction] 5.8 % High 4.4-5.6 [facility] Comment on above: Result Comment: NOTE ADA Guidelines Result HgbA1c Normal : less than 5.7 % Prediabetes : 5.7 % to 6.4 % Diabetes : > 6.4 % Use with caution in patients with abnormal hemoglobin variants as the half-life of red blood cells and in vivo glycation rates are affected. Performed By: #### C BCA, CMP, 75708-6, 44341-8, 3084-1, 3016-3, 3024-7, 3051-0, 2284-8, 9 #### [facility] ([id number]) [address] [facility], [address] [place] [address] Lipid 1996 panelon 4 Cholesterol [Mass/Vol] 157 mg/dL Normal 150-200 [facility] Comment on above: Performed By: ###Jake Salgado BCA, TAY, 00332-1, 15837-7, 3084-1, 3016- 3, 3024-7, 3051-0, 2284-8, 2132-9 #### [facility] ([id number]) [address], [address] [address] Cholesterol in HDL [Mass/Vol] 57 mg/dL Normal >39 [facility] Comment on above: Result Comment: HDL <40 mg/dL - High Risk HDL > or = 40mg/dL- Desirable HDL >60 mg/dL - Negative Risk Performed By: #### Damian MENEZES, CMP, 76622-7, 06835-1, 3084-1, 3016-3, 3024-7, 3051-0, 2284-8, 9 #### [facility] ([id number]) [address], [address] [address] Cholesterol in LDL [Mass/Vol] 79 mg/dL Normal <130 [facility] Comment on above: Result Comment: LDL <100 mg/dL - Desirable LDL >160 mg/dL - High Risk Performed By: #### Damian MENEZES, CMP, 43452-9, 32621-2, 3084-1, 3016-3, 3024-7, 3051-0, 2284-8, 2132-9 #### [facility] ([id number]) [address], [address] [place] [address] Cholesterol in VLDL [Mass/Vol] 21 mg/dL Normal 0-30 [facility] Comment on above: Performed By: #### C BCA, CMP, 31709-5, 65343-4, 3084-1, 3016- 3, 3024-7, 3051-0, 2284-8, 2132-03 #### [facility] ([id number]) [address], [address] [place] [address] CHOLESTEROL:HDL 2.8 Normal 1.0-5.0 [facility] Comment on above: Performed By: #### C BCA, CMP, 06891-0, 35709-1, 3084-1, 3016- 3, 3024-7, 3051-0, 2284-8, 2132-03 #### [facility] ([id number]) [address] [address], [address] [place] [address] Triglyceride [Mass/Vol] 104 mg/dL Normal 27-150 [facility] Comment on above: Performed By: #### C BCA, CMP, 25266-5, 44351-5, 3084-1, 3016- 3, 3024-7, 3051-0, 2284-8, 2132-03 #### [facility] ([id number]) [address], [address] [place] [address] MAGNESIUMon 09-18-2023 Magnesium [Mass/Vol] 1.7 mg/dL Low 1.8-2.6 [facility] Comment on above: Performed By: #### C BCA, CMP, 16050-8, 09598-8, 3084-1, 3016- 3, 3024-7, 3051-0, 2284-8, 2132-03 #### [facility] ([id number]) [address], [address] [place] [address] TSH Qnon 09-18-2023 TSH 2.26 uIU/mL Normal 0.49-4.67 [facility] Comment on above: Performed By: #### C BCA, CMP, 32550-6, 90528-8, 3084-1, 3016- 3, 3024-7, 3051-0, 2284-8, 9 #### [facility] ([id number]) [address] [facility], [address] [place] [address] URIC ACIDon 09-18-2023 Urate [Mass/Vol] 5.8 mg/dL Normal 2.6-7.2 [facility] Comment on above: Performed By: #### C BCA, CMP, 33977-0, 94206-5, 3084-1, 3016- 3, 3024-7, 3051-0, 2284-8, 2132-03 #### [facility] ([id number]) [address] [place] [address], [address] [place] [address] VITAMIN B12on 09-18-2023 Cobalamin (Vitamin B12) [Mass/Vol] pg/mL High 180-914 [facility] Comment on above: Performed By: #### C BCA, CMP, 48033-0, 93387-2, 3084-1, 3016- 3, 3024-7, 3051-0, 2284-8, 2132-03 #### [facility] ([id number]) [address] [place] [address], [address] [place] [address] XR KNEE LT 3 VWSon 4 XR [...] Marquis MD on 09/18/2023 12:15 PM Normal [facility] CBC AUTO DIFFon 11-11-2022 BASO # 0.0 103/ul Normal 0.0-0.1 [facility] Comment on above: Performed By: #### U BRENT #### [facility] [address] [place] [address] Dr. Brandi Abarca Basophils/100 WBC (Bld) 0.5 % Normal 0.2-2.0 [facility] Comment on above: Performed By: #### U BRENT #### [facility] [address] [place] [address] Dr. Brandi Abarca EO # 0.2 103/ul Normal 0.0-0.7 [facility] Comment on above: Performed By: #### U BRENT #### [facility] [address] [place] [address] Dr. Brandi Abarca Eosinophils/100 WBC (Bld) 3.0 % Normal 0.9-7.0 [facility] Comment on above: Performed By: #### U BRENT #### [facility] [address] [place] [address] Dr. Brandi Abarca Erythrocyte distribution width (RBC) [Ratio] 13.6 % Normal 11.0-15.0 [facility] Comment on above: Performed By: #### U BRENT #### [facility] [address] [place] [address] Dr. Brandi Abarca Hematocrit (Bld) [Volume fraction] 34.4 % Critically low 36.0-48.0 [facility] Comment on above: Performed By: #### U BRENT #### [facility] [address] [place] [address] Dr. Brandi Abarca Hemoglobin (Bld) [Mass/Vol] 10.6 g/dL Critically low 12.0-16.0 [facility] Comment on above: Performed By: #### U BRENT #### [facility] [address] [place] [address] Dr. Brandi Abarca IG # 0.02 10e3/ul Normal 0.00-0.03 [facility] Comment on above: Performed By: #### U BRENT #### [facility] [address] [place] [address] Dr. Brandi Abarca IG % 0.3 % Normal 0.0-0.5 [facility] Comment on above: Performed By: #### U BRENT #### [facility] [address] [place] [address] Dr. Brandi Abarca LYMPH # 1.2 103/ul Normal 1.2-3.8 [facility] Comment on above: Performed By: #### U BRENT #### [facility] [address] [place] [address] Dr. Brandi Abarca Lymphocytes/100 WBC (Bld) 20.4 % Critically low 20.5-60.0 [facility] Comment on above: Performed By: #### U BRENT #### [facility] [address] [place] [address] Dr. Brandi Abarca MANUAL DIFF REQ NO Normal [facility] Comment on above: Performed By: #### U BRENT #### [facility] [address] [place] [address] Dr. Brandi Abarca MCH (RBC) [Entitic mass] 30.5 pg Normal 26.7-34.0 [facility] Comment on above: Performed By: #### U BRENT #### [facility] [address] [place] [address] Dr. Brandi Abarca MCHC (RBC) [Mass/Vol] 30.8 g/dL Normal 29.9-35.2 [facility] Comment on above: Performed By: #### U BRENT #### [facility] [address] [place] [address] Dr. Brandi Abarca MCV (RBC) [Entitic vol] 99.1 fL Critically high 81.0-99.0 [facility] Comment on above: Performed By: #### U BRENT #### [facility] [address] [place] [address] Dr. Brandi Abarca MONO # 0.7 103/ul Normal 0.3-0.8 [facility] Comment on above: Performed By: #### U BRENT #### [facility] [address] [place] [address] Dr. Brandi Abarca Monocytes/100 WBC (Bld) 12.0 % Normal 1.7-12.0 [facility] Comment on above: Performed By: #### U BRENT #### [facility] [address] [place] [address] Dr. Brandi Abarca NEUT # 3.8 103/ul Normal 1.4-6.5 [facility] Comment on above: Performed By: #### U BRENT #### [facility] [address] [address] [address] Brandi Abarca Neutrophils/100 WBC (Bld) 63.8 % Normal 43.0-75.0 [facility] Comment on above: Performed By: #### U BRENT #### [facility] [address] [address] [address] Brandi Abarca Platelet mean volume (Bld) [Entitic vol] 11.5 fL Normal 9.5-13.5 [facility] Comment on above: Performed By: #### U BRENT #### [facility] [address] [address] [address] Brandi Abarca PLT 212 103/ul Normal 150-450 [facility] Comment on above: Performed By: #### U BRENT #### [facility] [address] [address] [address] Brandi Abarca RBC 3.47 106/ul Critically low 4.20-5.40 [facility] Comment on above: Performed By: #### U BRENT #### [facility] [address] [address] [address] Brandi Abarca WBC 5.9 103/ul Normal 4.0-11.0 [facility] Comment on above: Performed By: #### U BRENT #### [facility] [address] [address] [address] Brandi Abarca GLYCOHEMOGLOBIN A1Con 2022 ADA RECOMMENDATION SEE BELOW Normal [facility] Comment on above: Result Comment: ADA RECOMMENDED LIMIT 4.0 - 6.0 ADA THERAPEUTIC TARGET < 7.0 ACTION SUGGESTED > 7.0 Performed By: #### A 1C #### [facility] [address] [address] [address] Brandi Abarca Glucose [Mass/Vol] 114 mg/dL Normal [facility] Comment on above: Performed By: #### A 1C #### [facility] [address] [address] [address] Brandi Abarca HbA1c (Bld) [Mass fraction] 5.6 % Normal 4.5-6.2 [facility] Comment on above: Performed By: #### A 1C #### [facility] [address] [place] [address] Dr. Brandi Abarca MAGNESIUMon 11-11-2022 Magnesium [Mass/Vol] 1.6 mg/dL Critically low 1.8-2.4 [facility] Comment on above: Performed By: #### U BRENT #### [facility] [address] [place] [address] Dr. Brandi Abarca PROF 14(COMP METB)on 023 Albumin [Mass/Vol] 2.4 g/dL Critically low 3.4-5.0 Th e [facility] Comment on above: Performed By: #### U BRENT #### [facility] [address] [place] [address] Dr. Brandi Abarca Albumin/Globulin [Mass ratio] 0.6 {ratio} Normal [facility] Comment on above: Performed By: #### U BRENT #### [facility] [address] [place] [address] Dr. Brandi Abarca ALP [Catalytic activity/Vol] 82 U/L Normal 46-116 [facility] Comment on above: Performed By: #### U BRENT #### [facility] [address] [place] [address] Dr. Brandi Abarca ALT [Catalytic activity/Vol] 14 U/L Normal 14-59 [facility] Comment on above: Performed By: #### U BRENT #### [facility] [address] [place] [address] Dr. Brandi Abarca Anion gap [Moles/Vol] 9.6 mmol/L Normal [facility] Comment on above: Performed By: #### U BRENT #### [facility] [address] [place] [address] Dr. Brandi Abarca AST [Catalytic activity/Vol] 14 U/L Critically low 15-37 [facility] Comment on above: Performed By: #### U BRENT #### [facility] [address] [place] [address] Dr. Brandi Abarca Bilirubin [Mass/Vol] 0.2 mg/dL Normal 0.2-1.0 [facility] Comment on above: Performed By: #### U BRENT #### [facility] [address] [place] [address] Dr. Brandi Abarca Calcium [Mass/Vol] 8.6 mg/dL Normal 8.5-10.1 [facility] Comment on above: Performed By: #### U BRENT #### [facility] [address] [address] [address] Brandi Abarca Chloride [Moles/Vol] 103 mmol/L Normal 98-107 [facility] Comment on above: Performed By: #### U BRENT #### [facility] [address] [place] [address] Dr. Brandi Abarca CO2 [Moles/Vol] 29.6 mmol/L Normal 21.0-32.0 [facility] Comment on above: Performed By: #### U BRENT #### [facility] [address] [place] [address] Dr. Brandi Abarca Creatinine [Mass/Vol] 0.90 mg/dL Normal 0.55-1.02 [facility] Comment on above: Performed By: #### U BRENT #### [facility] [address] [place] [address] Dr. Brandi Abarca EGFR-AF DANISH >60 Normal >=60 [facility] Comment on above: Performed By: #### U BRENT #### [facility] [address] [place] [address] Dr. Brandi Abarca EGFR-NON AF DANISH 60 mL/min/1.73m2 Normal >=60 [facility] Comment on above: Performed By: #### U BRENT #### [facility] [address] [place] [address] Dr. Brandi Abarca Globulin (S) [Mass/Vol] 3.9 g/dL Normal [facility] Comment on above: Performed By: #### U BRENT #### [facility] [address] [place] [address] Dr. Brandi Abarca Glucose [Mass/Vol] 113 mg/dL Critically high 74-106 [facility] Comment on above: Performed By: #### U BRENT #### [facility] [address] [address] [address] Brandi Abarca Potassium [Moles/Vol] 4.2 mmol/L Normal 3.5-5.1 [facility] Comment on above: Performed By: #### U BRENT #### [facility] [address] [address] [address] Brandi Abarca Protein [Mass/Vol] 6.3 g/dL Critically low 6.4-8.2 [facility] Comment on above: Performed By: #### U BRENT #### [facility] [address] [place] [address] Dr. Brandi Abarca Sodium [Moles/Vol] 138 mmol/L Normal 136-145 [facility] Comment on above: Performed By: #### U BRENT #### [facility] [address] [place] [address] Dr. Brandi Abarca Urea nitrogen [Mass/Vol] 14.0 mg/dL Normal 7.0-18.0 [facility] Comment on above: Performed By: #### U BRENT #### [facility] [address] [address] [address] Brandi Abarca Urea nitrogen/Creatinine [Mass ratio] 15.6 mg/mg Normal [facility] Comment on above: Performed By: #### U BRENT #### [facility] [address] [place] [address] Dr. Brandi Abarca CBC AUTO DIFFon 11-10-2022 BASO # 0.0 103/ul Normal 0.0-0.1 [facility] Comment on above: Performed By: #### A 1C #### [facility] [address] [place] [address] Dr. Brandi Abarca Basophils/100 WBC (Bld) 0.3 % Normal 0.2-2.0 [facility] Comment on above: Performed By: #### A 1C #### [facility] [address] [place] [address] Dr. Brandi Abarca EO # 0.0 103/ul Normal 0.0-0.7 [facility] Comment on above: Performed By: #### A 1C #### [facility] [address] [place] [address] Dr. Brandi Abarca Eosinophils/100 WBC (Bld) 0.3 % Critically low 0.9-7.0 [facility] Comment on above: Performed By: #### A 1C #### [facility] [address] [place] [address] Dr. Brandi Abarca Erythrocyte distribution width (RBC) [Ratio] 13.7 % Normal 11.0-15.0 [facility] Comment on above: Performed By: #### A 1C #### [facility] [address] [place] [address] Dr. Brandi Abarca Hematocrit (Bld) [Volume fraction] 36.3 % Normal 36.0-48.0 [facility] Comment on above: Performed By: #### A 1C #### [facility] [address] [place] [address] Dr. Brandi Abarca Hemoglobin (Bld) [Mass/Vol] 11.3 g/dL Critically low 12.0-16.0 [facility] Comment on above: Performed By: #### A 1C #### [facility] [address] [place] [address] Dr. Brandi Abarca IG # 0.03 10e3/ul Normal 0.00-0.03 [facility] Comment on above: Performed By: #### A 1C #### [facility] [address] [place] [address] Dr. Brandi Abarca IG % 0.4 % Normal 0.0-0.5 [facility] Comment on above: Performed By: #### A 1C #### [facility] [address] [place] [address] Dr. Brandi Abarca LYMPH # 1.1 103/ul Critically low 1.2-3.8 [facility] Comment on above: Performed By: #### A 1C #### [facility] [address] [place] [address] Dr. Brandi Abarca Lymphocytes/100 WBC (Bld) 15.1 % Critically low 20.5-60.0 [facility] Comment on above: Performed By: #### A 1C #### [facility] [address] [place] [address] Dr. Brandi Abarca MANUAL DIFF REQ NO Normal [facility] Comment on above: Performed By: #### A 1C #### [facility] [address] [place] [address] Dr. Brandi Abarca MCH (RBC) [Entitic mass] 30.6 pg Normal 26.7-34.0 [facility] Comment on above: Performed By: #### A 1C #### [facility] [address] [place] [address] Dr. Brandi Abarca MCHC (RBC) [Mass/Vol] 31.1 g/dL Normal 29.9-35.2 [facility] Comment on above: Performed By: #### A 1C #### [facility] [address] [place] [address] Dr. Brandi Abarca MCV (RBC) [Entitic vol] 98.4 fL Normal 81.0-99.0 [facility] Comment on above: Performed By: #### A 1C #### [facility] [address] [place] [address] Dr. Brandi Abarca MONO # 0.9 103/ul Critically high 0.3-0.8 [facility] Comment on above: Performed By: #### A 1C #### [facility] [address] [place] [address] Dr. Brandi Abarca Monocytes/100 WBC (Bld) 11.6 % Normal 1.7-12.0 [facility] Comment on above: Performed By: #### A 1C #### [facility] [address] [place] [address] Dr. Brandi Abarca NEUT # 5.5 103/ul Normal 1.4-6.5 [facility] Comment on above: Performed By: #### A 1C #### [facility] [address] [place], [place] [address] Dr. Brandi Abarca Neutrophils/100 WBC (Bld) 72.3 % Normal 43.0-75.0 [facility] Comment on above: Performed By: #### A 1C #### [facility] [address] [place], [place] [address] Dr. Brandi Abarca Platelet mean volume (Bld) [Entitic vol] 9.8 fL Normal 9.5-13.5 [facility] Comment on above: Performed By: #### A 1C #### [facility] [address] [place] [address] [address] Brandi Abarca PLT 211 103/ul Normal 150-450 [facility] Comment on above: Performed By: #### A 1C #### [facility] [address] [place], [place] [address] Dr. Brandi Abarca RBC 3.69 106/ul Critically low 4.20-5.40 [facility] Comment on above: Performed By: #### A 1C #### [facility] [address] [place] [address] [address] Brandi Abarca WBC 7.5 103/ul Normal 4.0-11.0 [facility] Comment on above: Performed By: #### A 1C #### [facility] [address] [place] [address] Dr. Brandi Abarca ECHOCARDIO M/2D COMPLETEon 0 11-10-2022 ECHOCARDIO M/2D COMPLETE Patient: CUATE GOODMAN Exam Date: 11/10/2022 : 1940 Gender:F Ordering : SELINA POSADAS . Admission #: [id number] Family : Order #: [id number] CLICK HERE TO VIEW EXAM ECHOCARDIOGRAM REPORT [...] 4.21 cm Aortic Valve AoV Area (Peak Blil): 1.89 cm2, 1.82 cm2 AoV Area (VTI): [...] Moore M.D. on 11/11/2022 at 10:13 Normal [facility] GLYCOHEMOGLOBIN A1Con 2022 ADA RECOMMENDATION SEE BELOW Normal [facility] Comment on above: Result Comment: ADA RECOMMENDED LIMIT 4.0 - 6.0 ADA THERAPEUTIC TARGET < 7.0 ACTION SUGGESTED > 7.0 Performed By: #### U BRENT #### [facility] [address] [place] [address] Dr. Brandi Abarca Glucose [Mass/Vol] 120 mg/dL Normal [facility] Comment on above: Performed By: #### U BRENT #### [facility] [address] [place] [address] Dr. Brandi Abarca HbA1c (Bld) [Mass fraction] 5.8 % Normal 4.5-6.2 [facility] Comment on above: Performed By: #### U BRENT #### [facility] [address] [place] [address] Dr. Brandi Abarca MAGNESIUMon 11-10-2022 Magnesium [Mass/Vol] 1.6 mg/dL Critically low 1.8-2.4 [facility] Comment on above: Performed By: #### A 1C #### [facility] [address] [place] [address] Dr. Brandi Abarca PROF 14(COMP METB)on 023 Albumin [Mass/Vol] 2.6 g/dL Critically low 3.4-5.0 [facility] e [facility] Comment on above: Performed By: #### U BRENT #### [facility] [address] [place] [address] Dr. Brandi Abarca Albumin/Globulin [Mass ratio] 0.7 {ratio} Normal [facility] Comment on above: Performed By: #### U BRENT #### [facility] [address] [place] [address] Dr. Brandi Abarca ALP [Catalytic activity/Vol] 84 U/L Normal 46-116 [facility] Comment on above: Performed By: #### U BRENT #### [facility] [address] [place] [address] Dr. Brandi Abarca ALT [Catalytic activity/Vol] 16 U/L Normal 14-59 [facility] Comment on above: Performed By: #### U BRENT #### [facility] [address] [place] [address] Dr. Brandi Abarca Anion gap [Moles/Vol] 5.4 mmol/L Normal [facility] Comment on above: Performed By: #### U BRENT #### [facility] [address] [place] [address] Dr. Brandi Abarca AST [Catalytic activity/Vol] 15 U/L Normal 15-37 [facility] Comment on above: Performed By: #### U BRENT #### [facility] [address] [place] [address] Dr. Brandi Abarca Bilirubin [Mass/Vol] 0.5 mg/dL Normal 0.2-1.0 [facility] Comment on above: Performed By: #### U BRENT #### [facility] [address] [place] [address] Dr. Brandi Abarca Calcium [Mass/Vol] 8.8 mg/dL Normal 8.5-10.1 [facility] Comment on above: Performed By: #### U BRENT #### [facility] [address] [place] [address] [address] Brandi Abarca Chloride [Moles/Vol] 101 mmol/L Normal 98-107 [facility] Comment on above: Performed By: #### U BRENT #### [facility] [address] [place] [address] [address] Brandi Abarca CO2 [Moles/Vol] 33.4 mmol/L Critically high 21.0-32.0 [facility] Comment on above: Performed By: #### U BRENT #### [facility] [address] [place] [address] Dr. Brandi Abarca Creatinine [Mass/Vol] 0.85 mg/dL Normal 0.55-1.02 [facility] Comment on above: Performed By: #### U BRENT #### [facility] [address] [place] [address] Dr. Brandi Abarca EGFR-AF DANISH >60 Normal >=60 [facility] Comment on above: Performed By: #### U BRENT #### [facility] [address] [place] [address] Dr. Brandi Abarca EGFR-NON AF DANISH >60 Normal >=60 [facility] Comment on above: Performed By: #### U BRENT #### [facility] [address] [place] [address] Dr. Brandi Abarca Globulin (S) [Mass/Vol] 3.9 g/dL Normal [facility] Comment on above: Performed By: #### U BRENT #### [facility] [address] [place] [address] [address] Brandi Abarca Glucose [Mass/Vol] 116 mg/dL Critically high 74-106 [facility] Comment on above: Performed By: #### U BRENT #### [facility] [address] [place] [address] Dr. Brandi Abarca Potassium [Moles/Vol] 3.8 mmol/L Normal 3.5-5.1 [facility] Comment on above: Performed By: #### U BRENT #### [facility] [address] [place] [address] Dr. Brandi Abarca Protein [Mass/Vol] 6.5 g/dL Normal 6.4-8.2 [facility] Comment on above: Performed By: #### U BRENT #### [facility] [address] [place] [address] Dr. Brandi Abarca Sodium [Moles/Vol] 136 mmol/L Normal 136-145 [facility] Comment on above: Performed By: #### U BRENT #### [facility] [address] [place] [address] Dr. Brandi Abarca Urea nitrogen [Mass/Vol] 12.0 mg/dL Normal 7.0-18.0 [facility] Comment on above: Performed By: #### U BRENT #### [facility] [address] [place] [address] Dr. Brandi Abarca Urea nitrogen/Creatinine [Mass ratio] 14.1 mg/mg Normal [facility] Comment on above: Performed By: #### U BRENT #### [facility] [address] [place] [address] Dr. Brandi Abarca PTT HEPARIN MONITORon 2022 aPTT Coag (Bld) [Time] 48.7 s Normal 39.5-54.2 [facility] Comment on above: Performed By: #### P TTHEP #### [facility] [address] [place] [address] Dr. Brandi Abarca aPTT Coag (Bld) [Time] 56.6 s Critically high 39.5-54.2 [facility] Comment on above: Performed By: #### A 1C #### [facility] [address] [place] [address] Dr. Brandi Abarca aPTT Coag (Bld) [Time] 51.4 s Normal 39.5-54.2 [facility] Comment on above: Performed By: #### P TTHEP #### [facility] [address] [place] [address] Dr. Brandi Abarca BNPon 11-09-2022 Natriuretic peptide B (Bld) [Mass/Vol] 1702.0 pg/mL Normal <=1,800.0 [facility] Comment on above: Performed By: #### U BRENT #### [facility] [address] [place] [address] Dr. Brandi Abarca Natriuretic peptide B (Bld) [Mass/Vol] 1702.0 pg/mL Normal <=1,800.0 [facility] Comment on above: Performed By: #### H STROPN, BNP, BMP #### [facility] [address] [place] [address] Dr. Brandi Abarca CBC AUTO DIFFon 11-09-2022 BASO # 0.0 103/ul Normal 0.0-0.1 [facility] Comment on above: Performed By: #### A 1C #### [facility] [address] [place] [address] Dr. Brandi Abarca Basophils/100 WBC (Bld) 0.4 % Normal 0.2-2.0 [facility] Comment on above: Performed By: #### A 1C #### [facility] [address] [place] [address] Dr. Brandi Abarca EO # 0.2 103/ul Normal 0.0-0.7 [facility] Comment on above: Performed By: #### A 1C #### [facility] [address] [place] [address] Dr. Brandi Abarca Eosinophils/100 WBC (Bld) 1.8 % Normal 0.9-7.0 [facility] Comment on above: Performed By: #### A 1C #### [facility] [address] [place] [address] Dr. Brandi Abarca Erythrocyte distribution width (RBC) [Ratio] 13.6 % Normal 11.0-15.0 [facility] Comment on above: Performed By: #### A 1C #### [facility] [address] [place] [address] Dr. Brandi Abarca Hematocrit (Bld) [Volume fraction] 38.2 % Normal 36.0-48.0 [facility] Comment on above: Performed By: #### A 1C #### [facility] [address] [place] [address] Dr. Brandi Abarca Hemoglobin (Bld) [Mass/Vol] 12.2 g/dL Normal 12.0-16.0 [facility] Comment on above: Performed By: #### A 1C #### [facility] [address] [place] [address] Dr. Brandi Abarca IG # 0.02 10e3/ul Normal 0.00-0.03 [facility] Comment on above: Performed By: #### A 1C #### [facility] [address] [place] [address] Dr. Brandi Abarca IG % 0.2 % Normal 0.0-0.5 [facility] Comment on above: Performed By: #### A 1C #### [facility] [address] [place] [address] Dr. Brandi Abarca LYMPH # 1.3 103/ul Normal 1.2-3.8 [facility] Comment on above: Performed By: #### A 1C #### [facility] [address] [place] [address] Dr. Brandi Abarca Lymphocytes/100 WBC (Bld) 15.4 % Critically low 20.5-60.0 [facility] Comment on above: Performed By: #### A 1C #### [facility] [address] [place] [address] Dr. Brandi Abarca MANUAL DIFF REQ NO Normal [facility] Comment on above: Performed By: #### A 1C #### [facility] [address] [place] [address] Dr. Brandi Abarca MCH (RBC) [Entitic mass] 30.7 pg Normal 26.7-34.0 [facility] Comment on above: Performed By: #### A 1C #### [facility] [address] [place] [address] Dr. Brandi Abarca MCHC (RBC) [Mass/Vol] 31.9 g/dL Normal 29.9-35.2 [facility] Comment on above: Performed By: #### A 1C #### [facility] [address] [place] [address] Dr. Brandi Abarca MCV (RBC) [Entitic vol] 96.0 fL Normal 81.0-99.0 [facility] Comment on above: Performed By: #### A 1C #### [facility] [address] [place] [address] [address] Brandi Abarca MONO # 0.7 103/ul Normal 0.3-0.8 [facility] Comment on above: Performed By: #### A 1C #### [facility] [address] [place] [address] [address] Brandi Abarca Monocytes/100 WBC (Bld) 8.6 % Normal 1.7-12.0 [facility] Comment on above: Performed By: #### A 1C #### [facility] [address] [place] [address] [address] Brandi Abarca NEUT # 6.0 103/ul Normal 1.4-6.5 [facility] Comment on above: Performed By: #### A 1C #### [facility] [address] [place] [address] Dr. Brandi Abarca Neutrophils/100 WBC (Bld) 73.6 % Normal 43.0-75.0 [facility] Comment on above: Performed By: #### A 1C #### [facility] [address] [place] [address] Dr. Brandi Abarca Platelet mean volume (Bld) [Entitic vol] 9.8 fL Normal 9.5-13.5 [facility] Comment on above: Performed By: #### A 1C #### [facility] [address] [place] [address] Dr. Brandi Abarca PLT 234 103/ul Normal 150-450 [facility] Comment on above: Performed By: #### A 1C #### [facility] [address] [place] [address] Dr. Brandi Abarca RBC 3.98 106/ul Critically low 4.20-5.40 [facility] Comment on above: Performed By: #### A 1C #### [facility] [address] [place] [address] [address] Brandi Abarca WBC 8.1 103/ul Normal 4.0-11.0 [facility] Comment on above: Performed By: #### A 1C #### [facility] [address] [place] [address] [address] Brandi Abarca CTA CHEST WO W [...] EYAD FREITAS Date: 2022-11-09 08:23 Normal [facility] Covid-19 PCR (CVDTBH)on 10-18 SARS-CoV-2 (COVID-19) RNA SMILEY+probe Ql (Unsp spec) Not detected Normal NOT DETECTED [facility] Comment on above: Result Comment: This test is not yet approved or cleared by the [place] FDA. When there are no FDA-approved or cleared tests available, and other criteria are met, FDA can make tests available under an emergency access mechanism called an Emergency Use Authorization (EUA). The EUA for this test is supported by the [place] of Health and Human Service's (HHS's) declaration [...] SARS-CoV-2. Performed By: #### C VDTBH #### [facility] [address] [place] [address] Dr. Brandi Abarca PROF CHEM 8 (BAS METB)on Anion gap [Moles/Vol] 12.2 mmol/L Normal [facility] Comment on above: Performed By: #### H STROPN, BNP, BMP #### [facility] [address] [place] [address] Dr. Brandi Abarca Calcium [Mass/Vol] 9.0 mg/dL Normal 8.5-10.1 [facility] Comment on above: Performed By: #### H STROPN, BNP, BMP #### [facility] [address] [place] [address] Dr. Brandi Abarca Chloride [Moles/Vol] 103 mmol/L Normal 98-107 [facility] Comment on above: Performed By: #### H STROPN, BNP, BMP #### [facility] [address] [place] [address] Dr. Brandi Abarca CO2 [Moles/Vol] 30.6 mmol/L Normal 21.0-32.0 [facility] Comment on above: Performed By: #### H STROPN, BNP, BMP #### [facility] [address] [place] [address] Dr. Brandi Abarca Creatinine [Mass/Vol] 0.89 mg/dL Normal 0.55-1.02 [facility] Comment on above: Performed By: #### H STROPN, BNP, BMP #### [facility] [address] [place] [address] Dr. Brandi Abarca EGFR-AF DANISH >60 Normal >=60 [facility] Comment on above: Performed By: #### H STROPN, BNP, BMP #### [facility] [address] [place] [address] [address] Bradni Abarca EGFR-NON AF DANISH >60 Normal >=60 [facility] Comment on above: Performed By: #### H STROPN, BNP, BMP #### [facility] [address] [place] [address] [address] Brandi Abarca Glucose [Mass/Vol] 102 mg/dL Normal 74-106 [facility] Comment on above: Performed By: #### H STROPN, BNP, BMP #### [facility] [address] [place] [address] [address] Brandi Abarca Potassium [Moles/Vol] 3.8 mmol/L Normal 3.5-5.1 [facility] Comment on above: Performed By: #### H STROPN, BNP, BMP #### [facility] [address] [place] [address] [address] Brandi Abarca Sodium [Moles/Vol] 142 mmol/L Normal 136-145 [facility] Comment on above: Performed By: #### H STROPN, BNP, BMP #### [facility] [address] [place] [address] [address] Brandi Abarca Urea nitrogen [Mass/Vol] 16.0 mg/dL Normal 7.0-18.0 [facility] Comment on above: Performed By: #### H STROPN, BNP, BMP #### [facility] [address] [place] [address] [address] Brandi Abarca Urea nitrogen/Creatinine [Mass ratio] 18.0 mg/mg Normal [facility] Comment on above: Performed By: #### H STROPN, BNP, BMP #### [facility] [address] [place] [address] [address] Brandi Abarca PROTIMEon 11-09-2022 INR Coag (PPP) [Relative time] 1.00 {INR} Normal [facility] Comment on above: Performed By: #### A 1C #### [facility] [address] [place] [address] [address] Brandi Abarca INR GUIDELINES SEE BELOW Normal [facility] Comment on above: Result Comment: NOVA RED INR: 2.0 - 3.0 CONDITIONS NOT LISTED BELOW 2.5 - 3.5 FOR PROSTHETIC HEART VALVE REPLACEMENT 2.5 - 3.5 RECURRENT THROMBOSIS Performed By: #### A 1C #### [facility] [address] [place] [address] Dr. Brandi Abarca PT Coag (PPP) [Time] 10.6 s Normal 9.0-11.6 [facility] Comment on above: Performed By: #### A 1C #### [facility] [address] [place] [address] Dr. Brandi Abarca PTTon 11-09-2022 aPTT Coag (Bld) [Time] 24.3 s Normal 22.3-36.2 [facility] Comment on above: Performed By: #### A 1C #### [facility] [address] [place] [address] Dr. Brandi Abarca PTT HEPARIN MONITORon 2022 aPTT Coag (Bld) [Time] 47.3 s Normal 39.5-54.2 [facility] Comment on above: Performed By: #### U BRENT #### [facility] [address] [place] [address] Dr. Brandi Abarca SYMPTOMATIC COVID-19 ANTIGEN on 11-09-2022 EUA Statement SEE BELOW Normal [facility] Comment on above: Result Comment: [...] sooner. Performed By: #### C VDAGS #### [facility] [address] [place] [address] Dr. Brandi Abarca SARS-CoV-2 (COVID-19) RNA SMILEY+probe Ql (Unsp spec) Negative Normal NEGATIVE [facility] Comment on above: Performed By: #### C VDAGS #### [facility] [address] [place] [address] Dr. Brandi Abarca TROPONIN, HIGH SENSITIVITYon 11-09-2022 HSTROP 15.6 pg/mL Normal 4.0-51.3 [facility] Comment on above: Result Comment: CUT- OFF POINTS HAVE BEEN ESTABLISHED BASED ON THE FOURTH UNIVERSAL DEFINITIONS OF MYOCARDIAL INFARCTION. THE UPPER REFERENCE LIMIT (URL) OF TROPONIN, DEFINED THE 99TH PERCENTILE OF cTnI DISTRIBUTION IN A REFERENCE POPULATION, HAS BEEN CONFIRMED THE DECISION THRESHOLD FOR [place] DIAGNOSIS. Performed By: #### H STROPN #### [facility] [address] [place] [address] Dr. Brandi Abarca HSTROP 16.4 pg/mL Normal 4.0-51.3 [facility] Comment on above: Result Comment: CUT- OFF POINTS HAVE BEEN ESTABLISHED BASED ON THE FOURTH UNIVERSAL DEFINITIONS OF MYOCARDIAL INFARCTION. THE UPPER REFERENCE LIMIT (URL) OF TROPONIN, DEFINED THE 99TH PERCENTILE OF cTnI DISTRIBUTION IN A REFERENCE POPULATION, HAS BEEN CONFIRMED THE DECISION THRESHOLD FOR [place] DIAGNOSIS. Performed By: #### H STROPN, BNP, BMP #### [facility] [address] [place] [address] Dr. Brandi Abarca URIC ACID SERUMon 11-09-2022 Urate [Mass/Vol] 4.4 mg/dL Normal 2.6-6.0 [facility] Comment on above: Performed By: #### U BRENT #### [facility] [address] [place] [address] Dr. Brandi Abarca XR CHEST 1 Von [...] by: KIMBER MALLOY Date: 2022-11-09 07:22 Normal [facility] Vital Signs Date Time Vital Sign Value Performing Clinician Facility 07-28-2024 09:56-0500 Blood Pressure Location [facility] 07-28-2024 09:56-0500 Diastolic blood pressure 71 mm[Hg] [facility] 07-28-2024 09:56-0500 Heart rate 84 /min [facility] 07-28-2024 09:56-0500 Systolic blood pressure 122 mm[Hg] [facility] 03-16-2024 15:27-0400 Body height 162.[address] [employer]UP[employer]ER Work Phone: [facility] 03-16-2024 15:27-0400 Body mass index (BMI) [Ratio] 39.82 kg/m2 [address] [employer] CHEMI[employer]CCUPATIONAL THER Work Phone: [facility] 03-16-2024 15:27-0400 Body temperature 98.29 [degF] [address] [employer]GRICULT[employer] CHEMIST[employer]OCCUPATIONAL THER Work Phone: [facility] 03-16-2024 15:27-0400 Body weight 105.[address] Mackey [employer]GRICULTURAL CHEMIST-OCCUPATIONAL THER Work Phone: [facility] 02-23-2024 15:12-0400 Body height 162.6 cm Paige [employer] Work Phone: [facility] 02-23-2024 15:12-0400 Body mass index (BMI) [Ratio] 39.82 kg/m2 GEOLID Work Phone: [facility] 02-23-2024 15:12-0400 Body temperature 98.2 [degF] Paige Damon Work Phone: [facility] 02-23-2024 15:12-0400 Body weight 105.23 kg Paige Dunndamianfatuma Work Phone: [facility] 02-11-2024 07:32-0400 Body temperature 97.9 [degF] Mohan Gomez MD Work Phone: [facility] 02-11-2024 07:32-0400 Diastolic blood pressure 57 mm[Hg] Mohan Gomez MD Work Phone: [facility] 02-11-2024 07:32-0400 Heart rate 85 /min Mohan Gomez MD Work Phone: [facility] 02-11-2024 07:32-0400 Respiratory rate 18 /min Mohan Gomez MD Work Phone: [facility] 02-11-2024 07:32-0400 SaO2% (BldA) [Mass fraction] 94 % Mohan Gomez MD Work Phone: [facility] 02-11-2024 07:32-0400 Systolic blood pressure 109 mm[Hg] Mohan Gomez MD Work Phone: [facility] 02-11-2024 04:32-0400 Body mass index (BMI) [Ratio] 39.93 kg/m2 Mohan Gomez MD Work Phone: [facility] 02-11-2024 04:32-0400 Body weight 105.51 kg Mohan Gomez MD Work Phone: [facility] 02-02-2024 11:44-0400 Body height 162.6 cm Paigebowen Damon Work Phone: [facility] 02-02-2024 11:44-0400 Body mass index (BMI) [Ratio] 41.37 kg/m2 Paige Damon Work Phone: [employer] [facility] 02-02-2024 11:44-0400 Body temperature 98.8 [degF] Paige Damon Work Phone: [facility] [employer] [facility] 02-02-2024 11:44-0400 Body weight 109.32 kg Paige Damon Work Phone: [facility] [employer] [facility] 01-19-2024 14:50-0400 Body height 162.6 cm Mohan Gomez MD Work Phone: [facility] [employer] [facility] 01-19-2024 12:50-0400 Body temperature 98.2 [degF] Erik Heredia MD Work Phone: [facility] [employer] [facility] 01-19-2024 12:50-0400 Diastolic blood pressure 62 mm[Hg] Erik Heredia MD Work Phone: [facility] [employer] [facility] 01-19-2024 12:50-0400 Heart rate 89 /min Erik Heredia MD Work Phone: [facility] [employer] [facility] 01-19-2024 12:50-0400 Respiratory rate 16 /min Erik Heredia MD Work Phone: [employer] [facility] 01-19-2024 12:50-0400 SaO2% (BldA) [Mass fraction] 97 % Erik Heredia MD Work Phone: [facility] [employer] [facility] 01-19-2024 12:50-0400 Systolic blood pressure 137 mm[Hg] Erik Heredia MD Work Phone: [facility] [employer] [facility] 01-13-2024 10:00-0400 Body mass index (BMI) [Ratio] 37.24 kg/m2 Erik Heredia MD Work Phone: [employer] [facility] 01-13-2024 10:00-0400 Body weight 98.4 kg Erik Heredia MD Work Phone: [facility] 01-11-2024 11:55-0400 Body height 162.6 cm Erik Heredia MD Work Phone: [facility] [employer] [facility] 12-01-2023 14:19-0400 Body height 162.6 cm Erik Heredia MD Work Phone: [facility] 12-01-2023 14: Body mass index (BMI) [Ratio] 38.96 kg/m2 Erik Heredia MD Work Phone: [facility] 12-01-2023 14: Body weight 102.97 kg Erik Heredia MD Work Phone: [facility] Encounters Encounter Date Encounter Type Care Provider Facility Start: 11-01-2024 ambulatory Cyn JamesKaden Guamane Facility:[facility] Start: 08-23-2024 End: 08-23-2024 ambulatory Cyn JamesKaden Garza Facility:[id number] Start: 08-09-2024 End: 08-09-2024 Clinisync Result Encounter Shaikh Joselito AL Work Phone: [facility] Unsolicited Start: 08-09-2024 End: 08-09-2024 Clinisync Result Encounter Shaikh Joselito AL Work Phone: [facility] External [facility] Unsolicited Start: 08-09-2024 End: 08-09-2024 ambulatory Cyn JamesKaden Garza Facility:[id number] Start: 07-28-2024 End: 07-28-2024 ambulatory Cyn JamesKaden Guamanhortencia Facility:[facility] Start: 07-28-2024 End: 07-28-2024 Patient encounter procedure Cyn JamesKaden Garza [facility] Start: 07-20-2024 ambulatory Cyn JamesKaden Guamanhortencia Facility:[facility] Start: 07-18-2024 End: 07-18-2024 ambulatory Tony Casas [facility] Work Phone: Start: 07-18-2024 End: 07-18-2024 Departed Referred Tony Casas [facility] Start: 07-18-2024 End: 07-18-2024 ambulatory Cyn Garza Facility:[id number] Start: 05-01-2024 End: 05-02-2024 Non-patient / Non-visit Tony Casas [facility] Work Phone: Start: 03-16-2024 End: 03-16-2024 Postop follow up visit related to original px Paige Ramirez Marisol Work Phone: [facility] Comment on above: 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) Start: 03-16-2024 End: 03-16-2024 Subsequent hospital visit by physician Paige Damon Work Phone: [facility] Start: 03-16-2024 ambulatory PAIGE DAMON [facility] Start: 02-23-2024 End: 02-23-2024 Postop follow up visit related to original px Paige Ramirez Marisol Work Phone: [facility] Comment on above: S/P total left hip a rthroplasty (Primary Dx) Start: 02-23-2024 ambulatory PAIGE DAMON [facility] Start: 02-23-2024 End: 02-23-2024 Subsequent hospital visit by physician Paige Damon Work Phone: [facility] Start: 02-02-2024 End: 02-02-2024 Postop follow up visit related to original px Paige Ramirez Marisol Work Phone: [facility] Comment on above: S/P total left hip a rthroplasty (Primary Dx) Start: 02-02-2024 End: 02-02-2024 Subsequent hospital visit by physician Paige Damon Work Phone: [facility] Start: 02-02-2024 [facility] Start: 01-19-2024 End: 02-11-2024 Evaluation and management of inpatient Mohan Gomez MD Work Phone: [facility] Start: 01-11-2024 End: 01-19-2024 ambulatory TIAN KUHN [facility] Start: 01-11-2024 End: 01-19-2024 Encounter for other preprocedural examination ERIK HEREDIA [facility] Start: 01-11-2024 End: 01-19-2024 Patient encounter status Erik Heredia MD Work Phone: [facility] Start: 01-11-2024 End: 01-19-2024 Subsequent hospital visit by physician Erik Heredia MD Work Phone: [facility] Med Surg Comment on above: S/P total hip arthro plasty Start: 12-16-2023 ambulatory ABHI Ramirez GIOVANNY [facility] Start: 12-01-2023 End: 12-01-2023 Office outpatient new 60 minutes Erik Heredia MD Work Phone: [facility] Comment on above: Pain of left hip (Pr imary Dx) Start: 12-01-2023 End: 12-01-2023 Subsequent hospital visit by physician Erik Heredia MD Work Phone: [facility] Start: 12-01-2023 ambulatory TRUMAN BOO JR. [facility] Start: 11-03-2023 End: 11-04-2023 ambulatory TRUMAN ARRIAGA Not Available Start: 09-18-2023 End: 09-19-2023 ambulatory TIAN KUHN [facility] Start: 11-09-[address] TIAN KUHN [...] Work Phone: Start: 02-10-2024 C-reactive protein Lev y Martin Moreno MD Work Phone: Start: 02-09-2024 Basic metabolic pane l calcium total Mohan Gomez MD Work Phone: Start: 02-09-2024 C-reactive protein Adriannac y Martin Moreno MD Work Phone: Start: 02-08-2024 Basic metabolic pane l calcium total Mohan Gomez MD Work Phone: Start: 02-08-2024 C-reactive protein Adriannac y Martin Moreno MD Work Phone: Start: 02-07-2024 Basic metabolic pane l calcium total Mohan Gomez MD Work Phone: Start: 02-07-2024 C-reactive protein Lev y Martin Moreno MD Work Phone: Start: 02-06-2024 Basic metabolic pane l calcium total Mohan Gomez MD Work Phone: Start: 02-06-2024 C-reactive protein Lev y Martin Moreno MD Work Phone: Start: 02-05-2024 Basic metabolic pane l calcium total Mohan Gomez MD Work Phone: Start: 02-05-2024 C-reactive protein Adriannac y Martin Moreno MD Work Phone: Start: 02-04-2024 Basic metabolic pane l calcium total Mohan Gomez MD Work Phone: Start: 02-04-2024 C-reactive protein Adriannac y Martin Moreno MD Work Phone: Start: 02-03-2024 Urnls dip stick/tabl et rgnt auto w/o microscopy Mohan Gomez MD Work Phone: Start: 02-03-2024 Basic metabolic pane l calcium total Mohan Gomez MD Work Phone: Start: 02-03-2024 C-reactive protein Lev Moreno MD Work Phone: Start: 02-02-2024 Basic metabolic pane l calcium total Mohan Gomez MD Work Phone: Start: 02-02-2024 C-reactive protein Lev Moreno MD Work Phone: Start: 02-01-2024 Basic [...] Radiologic examinati on foot 2 views Paige Ramirez Marisol Work Phone: Start: 01-17-2024 Renal function panel Sa nati Ramirez Marisol Work Phone: Start: 01-14-2024 Blood count complete auto&auto difrntl wbc Ave Mackey APRN-OCCUPATIONAL THER Work Phone: Start: 01-13-2024 Assay of troponin [...] examinati on pelvis 1/[address] APRN-OCCUPATIONAL THER Work Phone: Start: 01-11-2024 SURGICAL PATHOLOGY REQUEST Erik Heredia MD Work Phone: Start: 01-11-2024 End: 01-11-2024 Arthrp acetblr/prox fem prostc agrft/algrft Erik Heredia MD Work Phone: Start: 01-11-2024 Blood group typing, RH phenotyping Susan Chadwick PA-C Work Phone: Start: 01-11-2024 Prothrombin time Susan brian PA-C Work Phone: Start: 01-11-2024 GENERAL PROCEDURE Shantell Dasilva RN Arthroplasty of knee Cyn L uhortencia Cholecystectomy Cyn Garza H/O: hysterectomy H/O: hysterectomy Cyn Lue Hysterectomy Cyn Lue Insertion of hip prosthesis Cyn Lue Total nephrectomy Cyn Luhortencia Plan of Treatment Date Care Activity Detail Author Start: 02-14-2026 Tetanus vaccination [facility] Start: 07-18-2024 Bacteria identified in Urine by Culture Urine Culture [facility] Start: 07-18-2024 Urine culture [facility] Start: 03-19-2024 Influenza vaccination A [facility] Start: 03-17-2024 End: 03-17-2024 Patient encounter procedure 03/17/2024 10:45 AM EDT Office Visit [facility] [address] [place] [address] Mohan Gomez MD [address] [place] [address] [facility] Start: 03-09-2024 End: 03-09-2024 Patient encounter procedure 03/09/2024 4:00 PM EDT Office Visit [facility] [address] [place] [address] APRN-CNP [address] [place] [address] [facility] Start: 02-23-2024 End: 02-23-2024 ambulatory [facility] Start: 02-23-2024 End: 02-23-2024 Patient encounter procedure 02/23/2024 3:00 PM EDT Office Visit [facility] [address] [place] [address] Paige Damon [address] [place] [address] [facility] Start: 02-21-2024 End: 02-21-2024 ambulatory [facility] Start: 02-02-2024 End: 02-02-2024 Patient encounter procedure 02/02/2024 11:30 AM EDT Office Visit [facility] [address] [place] [address] Paige Damon [address] [place] [address] [facility] Start: 01-10-2024 End: 01-10-2024 Admission to same day surgery center 01/10/2024 6:45 AM EDT - 01/10/2024 8:00 AM EDT Surgery [facility] Periop [address] [place] [address] Erik Heredia MD [address] [place] [address] ARTHROPLASTY HIP TOTAL AL [facility] Comment on above: ARTHROPLASTY HIP TOT AL AL Start: 01-10-2024 End: 01-10-2024 Arthrp acetblr/prox fem prostc agrft/algrft ARTHROPLASTY HIP TOTAL LATERAL APPROACH Osteoarthritis of left hip, unspecified osteoarthritis type 01/10/2024 6:45 AM EDT [facility] Start: 01-10-2024 Subsequent hospital visit by physician 01/10/2024 6:45 AM EDT Hospital Encounter [facility] [address] [place] [address] Erik Heredia MD [address] [place] [address] Osteoarthritis of left hip, unspecified osteoarthritis type [facility] Comment on above: Osteoarthritis of le ft hip, unspecified osteoarthritis type Start: 12-16-2023 End: 12-16-2023 Admission to establishment 12/16/2023 10:00 AM EDT Pre-Operative Nurse Assessment [facility] Pre Admission [address] [place] [address] [facility] Pre Admission Start: 03-19-2023 COVID-19 VACCINE ( season) COVID-19 VACCINE ( season) [facility] Start: 03-19-2023 [facility] Start: 10-17-2008 Pneumococcal vaccination [facility] Start: 2005 Zoster vaccine hzv l cheryl for subcutaneous use ZOSTER (SHINGLES) VACCINE (2 of 3) [facility] Start: 2005 [facility] Start: 2002 RSV VACCINE (1 - 1-d ose 60+ series) RSV VACCINE (1 - 1-dose 60+ series) [facility] Start: 10-11-1987 Screening for malign ant neoplasm of colon [facility] Start: 08-23-1985 Hepatitis B vaccination [facility] Start: 1982 Screening for malign ant neoplasm of breast [facility] Start: 10-11-1963 Screening for malign ant neoplasm of cervix [facility] Start: 1942 Screening for osteoporosis [facility] End: 01-11-2024 XR Hip - left Single view [facility] Comment on above: One Time for 1 Occur rences starting 01/11/2024 until 01/11/2024 XR Pelvis and Hip - left Views XR HIP WITH PELVIS LEFT Imaging Routine Pain of left hip 12/01/2023 2:03 PM EDT [facility] Work Phone: XR Pelvis and Hip - left Views XR HIP WITH PELVIS LEFT Imaging Routine S/P total left hip arthroplasty 02/02/2024 11:31 AM EDT [facility] XR Pelvis and Hip - left Views XR HIP WITH PELVIS LEFT Imaging Routine S/P total left hip arthroplasty 02/23/2024 2:59 PM EDT [facility] XR Pelvis and Hip - left Views XR HIP WITH PELVIS LEFT Imaging Routine Hx of total hip arthroplasty, left 03/16/2024 2:21 PM EDT [facility] Immunizations Immunization Date Immunization Notes Care Provider John gonzalez 02-12-2021 influenza virus vaccine, unspecified formulation Erik Hereida MD Work Phone: [facility] 07-26-2020 SARS-CoV-2 (COVID-19 ) [id number] vaccine Cyn Lue [facility] 04-24-2020 influenza virus vaccine, unspecified formulation Cyn Lue [facility] 02-15-2016 tetanus toxoid, redu earline diphtheria toxoid, and acellular pertussis vaccine, adsorbed Cyn Lue [facility] 01-18-2016 tetanus toxoid, redu earline diphtheria toxoid, and acellular pertussis vaccine, adsorbed Cyn Lue [facility] 04-23-2014 influenza virus vaccine, unspecified formulation Cyn Lue [facility] 10-18-2007 pneumococcal conjuga te vaccine, 13 valent Cyn Lue [facility] 08-15-2005 zoster vaccine, live Cyn L ue [facility] 08-15-2005 zoster vaccine, unspecified formulation Erik Heredia MD Work Phone: [facility] 07-26-1995 hepatitis A vaccine, adult dosage Cyn Lue [facility] 07-26-1985 hepatitis B vaccine, adult dosage Cyn Lue [facility] Payers Date Payer Category Payer Self-pay 2023 Medicaid [employer] MEDICARE A DVANTAGE [id number] 2023 Medicare [id number] 1959 Medicare [id number] 1940 Unknown [id number] 2.16.840.1.156207.3.579.2.593 1942 Unknown [id number] 2.16.840.1.970629.3.579.2.1286 1942 Unknown [id number] 2.16.840.1.490812.3.579.2.1286 1942 Unknown [id number] 2.16.840.1.037963.3.579.2.1286 1942 Unknown [id number] 2.16.840.1.448929.3.579.2.1259 1942 Unknown [id number] 2.16.840.1.489270.3.579.2.1259 1942 Unknown [id number] 2.16.840.1.585572.3.579.2.983 1942 Unknown [id number] 2.16.840.1.222876.3.579.2.983 1942 Unknown [id number] 2.16.840.1.514800.3.579.2.983 1942 Unknown [id number] 2.16.840.1.053987.3.579.2.983 1942 Unknown [id number] 2.16.840.1.798753.3.579.2.983 1942 Unknown [id number] 2.16.840.1.727629.3.579.2.983 1942 Unknown [id number] 2.16.840.1.312323.3.579.2.983 1942 Unknown [id number] 2.16.840.1.015566.3.579.2.983 1942 Unknown [id number] 2.16.840.1.185120.3.579.2.983 1942 Unknown [id number] 2.16.840.1.903709.3.579.2.983 1942 Unknown [id number] 2.16.840.1.380546.3.579.2.983 1942 Unknown [id number] 2.16.840.1.454221.3.579.2.727 1942 Unknown [id number] 2.16.840.1.769751.3.579.2.727 1942 Unknown [id number] 2.16.840.1.287086.3.579.2.727 1942 Unknown [id number] 2.16.840.1.939716.3.579.2.727 1942 Unknown [id number] 2.16.840.1.059634.3.579.2.727 Unknown [id number] 2.16.840.1.120038.3.579.2.531 Social History Date Type Detail Facility Start: 11-03-2023 End: 12-01-2023 Tobacco smoking status WVIS Never smoked tobacco [facility] Start: 11-03-2023 End: 12-01-2023 Tobacco use and exposure Smokeless tobacco non-user [facility] Start: 12-01-2023 End: 03-16-2024 Alcoholic beverage intake Lifetime non-drinker (finding) [facility] Start: 11-03-2023 End: 12-01-2023 History of Social function [facility] Start: 11-03-2023 End: 12-01-2023 Tobacco use panel [facility] Start: 1940 Sex assigned at Not on file A [employer] [facility] Has the [employer], [employer], or water company threatened to shut off services in your home in past 12Mo No [facility] (I/We) worried wheth er (my/our) food would run out before (I/we) got money to buy more. Never true [facility] In the past 12 month s, has lack of transportation kept you from medical appointments or from getting medications? No [facility] How hard is it for y ou to pay for the very basics like food, housing, medical care, and heating Not very hard [facility] Tobacco smoking stat [facility] Unknown if ever smoked [facility] Work Phone: Start: 07-19-2024 Sex Female (finding) [facility] Start: 1940 Sex Assigned At Female F [facility] Medical Equipment Procedure Code Equipment Code Equipment Origin al Text Equipment Identifier Dates [id number] Start: 01-11-2024 [id number] Start: 01-11-2024 [id number] Start: 01-11-2024 [id number] Start: 01-11-2024 [id number] Start: 01-11-2024 [id number] Start: 01-11-2024 [id number] Start: 01-11-2024 [id number] Start: 01-11-2024 [id number] Start: 01-11-2024 [id number] Start: 01-11-2024 Functional Status Date Assessment Result Facility 07-28-2024 Functional Status N/A [facility] Clinical Notes 12-01-2023 to 07-28-2024 Alhaji Dickinson ATC - 03/16/2024 3:00 PM RENE Coon - 03/16/2024 3:00 PM Rodri Dickinson ATC - 02/23/2024 3:00 PM Tylor Damon - 02/23/2024 3:00 PM EDTDischarge Instr - Activity Note Date & Type [...] Follow these instructions at home: Medicines Take msic-lyf-rrifvew and prescription medicines only as told by [...] to keep your pee pale yellow. ?Take bjkp-yhs-cbnvkcy or prescription medicines. ?Eat foods that are [...] provider. Document Revised: 03/05/2023 Document Reviewed: 03/05/2023 [employer] Patient Education 2023 [employer]. 07/28/2024 10:34:03 Laser Therapy for Kidney Stones [...] including vitamins, herbs, eye drops, creams, and rujd-oiy-ansnwrh medicines. Any problems you or family members [...] unless your provider tells you to. ?Taking ijrq-cvr-fxcynvj medicines, vitamins, herbs, and supplements. Tests You [...] provider. Document Revised: 03/05/2023 Document Reviewed: 03/05/2023 [employer] Patient Education 2023 [employer]. Follow Up Care 07/27/2024 16:37:35 With:Greg AL, STEFFI Castellanos, URO Address: When: Unknown [facility] 07-28-2024 Note Patient Education Nephrology Laser Therapy [...] these instructions at home: Medicines ??? Take zcrd-hcx-ttygawk and prescription medicines only as told by [...] keep your pee pale yellow. ? Take hzoy-kwq-vralgfa or prescription medicines. ? Eat foods that [...] provider. Document Revised: 03/05/2023 Document Reviewed: 03/05/2023 [employer] Patient Education ? 2023 [employer] Laser Therapy for Kidney Stones Laser [...] including vitamins, herbs, eye drops, creams, and zopo-pfp-dgndops medicines. ??? Any problems you or family [...] and drink. Thes (more content not included)... [facility] 03-16-2024 History of Presen t illness Narrative Ortho Nurse - Established Patient Intake Room#: 4 01/11/24 ARTHROPLASTY HIP TOTAL AL left Patient arrives with her grandson in her wheelchair. She is an 83 year old female. She has no complaints and is hoping to move to weight bearing status. Date: 03/16/2024 3:22 PM Patient: Cuate Goodman MR#: [id number] : 1940 Age: 83 y.o. Referring Physician: Self, Self Insurance: Payor: MEDICARE AET[employer]osterous HMO OR PPO / Plan: MEDICARE [employer]ET[employer]osterous PPO / Product Type: *No Product type* [...] SUBJECTIVE: Cuate is an established patient of [facility]. Here today for followup. She is now [...] any questions or concerns in the meantime. (DOC:[id number]) I have reviewed the findings of the clinical patient support assistant and agree with their assessment. Ave Mackey APRN-MARGARITA Ortho Nurse - Established Patient Intake Room#: 4 01/11/24 ARTHROPLASTY HIP TOTAL AL left Patient arrives with her grandson in her wheelchair. She is an 83 year old female. She has no complaints and is hoping to move to weight bearing status. Date: 03/16/2024 3:22 PM Patient: Cuate Goodman MR#: [id number] : 1940 Age: 83 y.o. Referring Physician: [...] oxycodone, and penicillins. documented in this encounter [facility] 02-23-2024 History of Presen t illness Narrative Ortho Nurse - Established Patient Intake Room#: 6 Patient is an 83 year old female who arrives for 6 week postop (01/11/24) left [facility]. Patient is experiencing 8/10 in pain while [...] 02/23/2024 2:58 PM Patient: Cuate Goodman MR#: [id number] : 1940 Age: 83 y.o. Referring Physician: [...] time. All pertinant portions of the clinical patient support assistant documentation was reviewed. Paige Damon I have reviewed the findings of the clinical patient support assistant and agree with their assessment. Paige Damon [...] 02/23/2024 2:58 PM Patient: Cuate Goodman MR#: [id number] : 1940 Age: 83 y.o. Referring Physician: [...] oxycodone, and penicillins. documented in this encounter [facility] 02-11-2024 Hospital course Narrative Images from [...] Provider Department Dept Phone 02/21/2024 8:45 AM [facility] Infectious Disease [phone] 02/23/2024 3:00 PM Paige Damon [facility] [phone] documented in this encounter [facility] 02-11-2024 Miscellaneous Notes Patient discharged with all belongings via wheelchair by staff to private residence. Bingo Usher provided patient with AVS. Bingo Usher educated patient on entire AVS, including but not limited to, follow-up appointments, prescriptions, home medications (new, continued, and stopped), next med dose due date and times, discharge activity and diet, and discharge education based on diagnoses. Patient verbalized understanding of all AVS education provided by hand sign writer. Problem: Adult Inpatient Plan of Care [...] FWW Patient will demonstrate ability to orange picker object from the floor with supervision and LRAD in order to promote independence in the home and demonstrate functional balance improvements in the rehabilitation program. Supervision with united states marshal & FWW Patient will perform car transfer [...] NT Patient will demonstrate ability to orange picker object from the floor with supervision and LRAD in order to promote independence in the home and demonstrate functional balance improvements in the rehabilitation program. SBA to CGA with united states marshal & FWW Patient will perform car transfer [...] 02/01 to transport her fellow up to [facility] ER. Dr Gomez rounding on patient. Problem: Adult [...] and treatment assumed from JANN Welch/Karin at [facility]. JANN Travis/Karin 01/26/2024 Problem: Adult Inpatient [...] Outcome: Progressing Report received from ALLY Gomez, manufacturing engineer machining. Patient up in recliner. Awake but drowsy. [...] up and needs. Also had collaborated with MARINE METEOROLOGIST earlier regarding pt's frequency. Pt would benefit [...] Mobility Outcome: Progressing Patient transferred to [facility]. Does not follow TTWB [...] alarm in place. documented in this encounter Pycno THE NOCKLIST [facility] 02-11-2024 Miscellaneous Notes Patient discharged with all belongings via wheelchair by staff to private residence. Bingo Usher provided patient with AVS. Bingo Usher educated patient on entire AVS, including but not limited to, follow-up appointments, prescriptions, home medications (new, continued, and stopped), next med dose due date and times, discharge activity and diet, and discharge education based on diagnoses. Patient verbalized understanding of all AVS education provided by hand sign writer. Problem: Adult Inpatient Plan of Care [...] FWW Patient will demonstrate ability to orange picker object from the floor with supervision and LRAD in order to promote independence in the home and demonstrate functional balance improvements in the rehabilitation program. Supervision with united states marshal & FWW Patient will perform car transfer [...] NT Patient will demonstrate ability to orange picker object from the floor with supervision and LRAD in order to promote independence in the home and demonstrate functional balance improvements in the rehabilitation program. SBA to CGA with united states marshal & FWW Patient will perform car transfer [...] promote additional improvement in functional mobility. Eirk Julio, PT [facility] will be picking up pt at 10:15 am 02/01 to transport her fellow up to [facility] office. Dr Gomez rounding on patient. Problem: [...] and treatment assumed from JANN Welch/Karin at [facility]. Marianna Lawson OTR/Karin 01/26/2024 Problem: Adult Inpatient [...] by LAILA Howe. Patient sitting on commode. Lizabeth, PT, standing beside patient. Patient is pale, [...] Outcome: Progressing Report received from ALLY Gomez, manufacturing engineer machining. Patient up in recliner. Awake but drowsy. [...] up and needs. Also had collaborated with MARINE METEOROLOGIST earlier regarding pt's frequency. Pt would benefit [...] Mobility Outcome: Progressing Patient transferred to [facility]. Does not follow TTWB [...] alarm in place. documented in this encounter [facility] 02-11-2024 History of Presen t illness [...] Mohan Gomez MD, 40 mg at 02/11/24 05 Polyethylene glycol (MIRALAX) packet 17 g, [...] Daily, Mohan Gomez MD, 4 mg at 02/10/2441 Zolpidem (AMBIEN) tablet 5 mg, 5 mg, Oral, QHS PRN, Mohan Gomez MD, 5 mg at 02/10/24 235 Allergies Allergen Reactions Morphine Nausea and Vomiting [...] bilateral inner thigh areas have improved. 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 Less irritation and pain. Patient was [...] CARE Score - Sit to Stand 5 Chair/Jpo-qc-Cgrug Transfer Assistance Needed Set-up / clean-up;Adaptive equipment Physical Assistance Level No physical assistance CARE Score - Chair/Fpf-gg-Mcfcr Transfer 5 Toilet Transfer Assistance Needed Set-up [...] and Justification Impairments in Body Structure/Function aerobic capacity/endurance;strength;pain Pt reports being excited to go home [...] 103 (H) 02/09/2024 Micro C difficile stool 7/8- Urine culture 01/20- 01/20 Nares - 12/16/2023 [...] tablet 5 mg, 5 mg, Oral, Daily, Mhoan Gomez MD, 5 mg at 02/08/24 0842 [...] Q12H, Mohan Gomez MD, 2 tablet at 07/21/24 2157 Tolterodine (DETROL-LA) capsule XL 4 mg, [...] Labs-ABGs Labs-CBC @CBCBRIEFROUNDS@ Labs-Chem 7([facility]) Bun/Creat/Cl/CO2/Glucose: 11/0.70/105/27/95 (02/07 436) Na/K+/Phos/Mg/Ca: 133/4.3/--/--/8.8 [...] HIP TOTAL Left 01/11/2024 Laterality: Left; Surgeon: Eirk Heredia MD; Location: [facility] OR NEPHRECTOMY [...] mg, 10 mg, Rectal, Daily PRN, Mohan Goemz MD Cyclobenzaprine (FLEXERIL) tablet 5 mg, 5 [...] a 83 y.o. female was admitted to [facility] for: 1. S/P total left hip arthroplasty 2. Status post total replacement of left hip Nutrition Assessment Subjective assessment / comments: Pt has been admitted to swing bed for strengthening/rehab needs 2/2 s/p hip arthroplasty by Dr. Heredia. Patient with fair oral intakes noted and mentioned to FNS human resources compliance manager the was getting tired of same [...] (227 lb) 12/01/23 103 kg (227 lb) [place] body weight: 54.7 kg (120 lb 9.5 [...] WBC 5.1 02/07/2024 RBC 3.23 (L) 02/07/2024 [id number] 16.9 01/20/2024 PMH & PSH: Past Medical [...] Transfer Skill: Sit To Stand, Rehab Eval Schley (Sit-Stand Transfers) supervision Physical Assist/Nonphysical Assist: Sit/Stand supervision Weight-Bearing Restrictions: Sit/Stand toe touch weight-bearing Assistive Device For Transfer: Sit/Stand 2 wheeled walker Gait Skills, PT Eval Level of Schley: Gait supervision Physical Assist/Nonphysical Assist: Gait 1 [...] to maintain TTWB on LLE pt ambulated [id number] and 75ftx1 with X1 seated rest; pt [...] the wound which is ongoing. Wound is impregnator and drier helper but still has mild erythema. No [...] Date: 01/19/2024 Date of Evaluation: 0:47 PM [facility] LOS: 17 days IMPRESSION [...] Transfer Skill: Sit To Stand, Rehab Eval Schley (Sit-Stand Transfers) contact guard Physical Assist/Nonphysical Assist: Sit/Stand verbal cues;supervision Transfer Skill: Toilet Transfer, Rehab Eval Assistive Device grab bars;2 wheeled walker Grooming Schley Level (Grooming) grooming skills;hair care, combing/brushing;wash face, hands;contact guard assist (CGA while standing at sink with mod cues to facilitate TTWB.) Physical Assist/Nonphysical Assist supervision;verbal cues Lower Body Dressing Level of Schley contact guard Physical Assist/Nonphysical Assist supervision;verbal cues Assistive Device united states marshal Toileting Level of Schley contact guard Physical Assist/Nonphysical Assist supervision;verbal cues [...] 0 Pt finishing with PRAKASH when this COLLECTIONS AND ARCHIVES DIRECTOR arrived; COLLECTIONS AND ARCHIVES DIRECTOR observed pt being increasingly rude and aggravated with PRAKASH; pt asked if she needed a break or if she was willing to work with this COLLECTIONS AND ARCHIVES DIRECTOR pt stated No! I guess Ill do it now and get it over with but I'm not doing anything that I dont have to; dont ask me to do extra ; therapist asked pt to assist with moving BLE for supine to sit transfer; pt refused to assist and demanded COLLECTIONS AND ARCHIVES DIRECTOR to move BLE; therapist provided max assist [...] Mohan Gomez MD, 2 tablet at 02/04/24 224 lactulose (CHRONULAC) oral solution 20 g, 20 [...] PRN, Mohan Gomez MD, 5 mg at 02/04/242239 Allergies Allergen Reactions Morphine Nausea and Vomiting [...] DAILY PROGRESS NOTE ] Admit Date: 01/19/2024 [facility] LOS: 17 days IMPRESSION AND PLAN: [...] Daily, Mohan Gomez MD, 100 mg at 02/04/24 0904 apixaban (ELIQUIS) tablet 5 mg, 5 [...] Date: 01/19/2024 Date of Evaluation: 1:05 PM [facility] LOS: 15 days [...] MaxA+2.Attempted to have pt try using leg last turner although pt stated I can't when asked [...] with SBA-CGA for balance using FWW and united states marshal with set up while seated. Donned underwear using united states marshal while seated and SBA-CGA to don over waist using FWW. CARE Score - Lower Body Dressing 4 Putting On/Taking Off Footwear Assistance Needed Physical assistance Physical Assistance Level Total assistance Comment Declined use of equipment CARE Score - Putting On/Taking Off Footwear 1 Toileting Hygiene Assistance Needed Incidental touching;Adaptive equipment Comment SBA-CGA using FWW CARE Score - Toileting Hygiene 4 Chair/Jbw-gm-Kkquc Transfer Assistance Needed Incidental touching;Adaptive equipment Comment SBA-CGA using FWW (initial CGA, as first time standing from chair this AM per pt report) CARE Score - Chair/Wdw-dy-Iyrfp Transfer 4 Toilet Transfer Assistance Needed Incidental [...] Mohan Gomez MD, 100 mg at 02/03/24 09 apixaban (ELIQUIS) tablet 5 mg, 5 mg, [...] Mohan Gomez MD, 1 tablet at 02/03/24 09 Nystatin (MYCOSTATIN) oral suspension 500,000 Units, 500,000 [...] GLUCOSE 100 02/03/2024 Micro C difficile stool 7/8- Urine culture 01/20- 01/20 Nares - 12/16/2023 [...] or two, then I will stay here. HEAD OF RESEARCH & INSIGHTS informs Cuate that her insurance review was 01/31/24 and determination is still pending. Cuate agreeable for psychiatric social worker supervisor to update her once insurance determination is known. CM will continue to follow. MATT Suarez 02/03/2024 8:17 AM DAILY PROGRESS NOTE Admit Date: 01/19/2024 Date of Evaluation: 410:41 PM [facility] LOS: 14 days [...] washing up before leaving facility for dr appt. Pt seen for ADL training (see above). [...] Gomez MD, 100 mg at 02/02/24 08 ferrous sulfate tablet 325 mg, 325 mg, [...] Gomez MD, 5 mg at 02/02/24 08 multivitamin tablet 1 tablet, 1 tablet, Oral, Daily, Mohan Gomez MD, 1 tablet at 02/02/24 08 Nystatin (MYCOSTATIN) oral suspension 500,000 Units, 500,000 Units, Swish & Swallow, 4x daily, Janet Moreno MD, 500,000 Units at 02/02/24 08 Ondansetron (ZOFRAN) tablet 4 mg, 4 mg, [...] Patient Name: CUATE GOODMAN Med. Rec. #: [id number] Physician: ERIK HEREDIA Specimen(s) Received Left femoral [...] articular cartilage degeneration. Sectioning reveals unremarkable bone. Shade Hanger sections are submitted in one cassette and placed in decalcification solution prior to processing. Billing Fee Code(s) A: 54518, 83781 WBC (WHITE BLOOD COUNT) 01/12/2024 10.5 3.6 [...] alarm flashing green and all needs met. RUBBERIZING MECHANIC made aware pt needs assistance with donning [...] wheeled walker;other (see comment) (Pt used leg last turner for car transfers.) Gait Assessment Gait Comments [...] Assistance Level No physical assistance Comment using united states marshal pt picked up 4 items off the [...] Mohan Gomez MD, 2 tablet at 01/31/24 2252 lactulose (CHRONULAC) oral solution 20 g, 20 [...] Mohan Gomez MD, 5 mg at 01/31/24 225 Allergies Allergen Reactions Morphine Nausea and Vomiting Other Reaction(s): GI intolerance Oxycodone Nausea and Vomiting Other Reaction(s): GI intolerance Penicillins Hives Vitals: 02/01/24 0416 02/01/24 0730 02/01/24 0753 02/01/24 1927 BP: 121/71 Pulse: 90 Resp: 19 Temp: [...] Patient Name: CUATE GOODMAN Med. Rec. #: [id number] Physician: ERIK HEREDIA Specimen(s) Received Left femoral [...] articular cartilage degeneration. Sectioning reveals unremarkable bone. Shade Hanger sections are submitted in one cassette and placed in decalcification solution prior to processing. Billing Fee Code(s) A: 08634, 93176 WBC (WHITE BLOOD COUNT) 01/12/2024 10.5 3.6 [...] Labs-ABGs Labs-CBC @CBCBRIEFROUNDS@ Labs-Chem 7([facility]) Bun/Creat/Cl/CO2/Glucose: 12/.10/102/33/94 (01/31 612) Na/K+/Phos/Mg/Ca: 134/4.5/--/--/8.7 [...] and treatment transferred to JANN Welch/Karin at [facility]. Marianna Lawson OTR/Karin 01/31/2024 01/31/24 1415 Physical Therapy Minutes Start [...] training. Walk 10 Feet Assistance Needed Adaptive equipment;Supervision;Incidental touching Physical Assistance Level No physical assistance [...] 01/31/24 0909 Occupational Therapy Minutes Start Time 09 Stop Time 941 Time Calculation 33 Oral [...] Mohan Gomez MD, 325 mg at 01/31/24 0909 hydroCODone-acetaminophen (NORCO) 5-325 MG per tablet 1 tablet, 1 tablet, Oral, Q4H PRN, Mohan Gomez MD, 1 tablet at 01/31/24 1352 hydroCODone-acetaminophen (NORCO) 5-325 MG per tablet 2 tablet, 2 tablet, Oral, Q4H PRN, Mohan Gomez MD, 2 tablet at 01/30/24 7447 lactulose (CHRONULAC) oral solution 20 g, 20 [...] Mohan Gomez MD, 40 mg at 01/31/24 0910 Polyethylene glycol (MIRALAX) packet 17 g, 17 [...] Mohan Gomez MD, 5 mg at 01/30/24 6807 Allergies Allergen Reactions Morphine Nausea and Vomiting [...] Date: 01/19/2024 Date of Evaluation: 46:41 PM [facility] LOS: 11 days [...] Patient Name: CUATE GOODMAN Med. Rec. #: [id number] Physician: ERIK HEREDIA Specimen(s) Received Left femoral [...] articular cartilage degeneration. Sectioning reveals unremarkable bone. Shade Hanger sections are submitted in one cassette and placed in decalcification solution prior to processing. Billing Fee Code(s) A: 89447, 88646 WBC (WHITE BLOOD COUNT) 01/12/2024 10.5 3.6 [...] Labs-ABGs Labs-CBC @CBCBRIEFROUNDS@ Labs-Chem 7([facility]) Bun/Creat/Cl/CO2/Glucose: 04/18.00/// (01/29 415) Na/K+/Phos/Mg/Ca: 135/4.4/--/--/8.6 (01/29 415) Labs-Coags [...] daily, Mohan Gomez MD, 1 Application at 01/27/24 2129 Ondansetron (ZOFRAN) tablet 4 mg, 4 mg, [...] Q12H, Mohan Gomez MD, 2 capsule at 01/30/24854 senna-docusate (SENOKOT-S) 8.6-50 MG per tablet 2 tablet, 2 tablet, Oral, Q12H, Mohan Gomez MD, 2 tablet at 01/22/242100 Sulfamethoxazole-trimethoprim (BACTRIM DS) 800-160 MG per tablet 1 tablet, 1 tablet, Oral, Q12H, Janet Moreno MD, 1 tablet at 01/30/24854 Tolterodine (DETROL-LA) capsule XL 4 mg, 4 [...] 1.00 01/30/2024 GLUCOSE 93 01/30/[address] [facility] 02-02-2024 History of Presen t illness Narrative Ortho Nurse - Established Patient Intake Room#: Cast room Patient is an 83 year old female who arrives in a wheel chair for her 3 week follow up after LHTA-AL on 01/11/24. She states she is not in any pain today and states her pain is controlled well. She is using [place] codone acetaminophen for pain relief as well as Tylenol prn. Her leg is wrapped instead of JOSAFAT hose and she is using Eliquis for DVT preventation. She is following touch down weight bearing protocol. Date: 02/02/2024 11:34 AM Patient: Cuate Goodman MR#: [id number] : 1940 Age: 83 y.o. Referring Physician: Paige Damon Insurance: Payor: MEDICARE AETPosterous HMO OR PPO / Plan: MEDICARE AETNA [...] Left; Surgeon: Erik Heredia MD; Location: [facility] OR NEPHRECTOMY Right 1978 CHOLECYSTECTOMY [...] TID PRN, Mohan Gomez MD [[facility] Hold - Suspended Admission] Lisinopril (PRINIVIL) tablet 5 mg, 5 mg, Oral, Daily, Mohan Gomez MD, 5 mg at 02/02/24834 [[facility] Hold - Suspended Admission] multivitamin tablet 1 tablet, 1 tablet, Oral, Daily, Mohan Gomez MD, 1 tablet at 02/02/24834 [[facility] Hold - Suspended Admission] Nystatin (MYCOSTATIN) oral suspension 500,000 Units, 500,000 Units, Swish & Swallow, 4x daily, Janet Moreno MD, 500,000 Units at 02/02/24834 [[facility] Hold - Suspended Admission] Ondansetron (ZOFRAN) tablet 4 mg, 4 mg, Oral, Q4H PRN, Mohan Gomez MD, 4 mg at 02/02/24 0840 [[facility] Hold - Suspended Admission] Pantoprazole (PROTONIX) tablet DR 40 mg, 40 mg, Oral, Daily, Mohan Gomez MD, 40 mg at 02/02/24 08 [[facility] Hold - Suspended Admission] Polyethylene glycol (MIRALAX) packet 17 g, 17 g, Oral, Q12H, Mohan Gomez MD, 17 g at 01/30/242043 [[facility] Hold - Suspended Admission] Polyethylene glycol (MIRALAX) packet 17 g, 17 g, Oral, TID PRN, Mohan Gomez MD [[facility] Hold - Suspended Admission] senna-docusate (SENOKOT-S) 8.6-50 MG per tablet 2 tablet, 2 tablet, Oral, Q12H, Mohan Gomez MD, 2 tablet at 01/30/242043 [[facility] Hold - Suspended Admission] Tolterodine (DETROL-LA) capsule XL 4 mg, 4 mg, Oral, Daily, Mohan Gomez MD, 4 mg at 02/02/2435 [[facility] Hold - Suspended Admission] Zolpidem (AMBIEN) tablet 5 mg, 5 mg, Oral, QHS PRN, Mohan Gomez MD, 5 mg at 02/01/24 5946 Allergies: She is allergic to morphine, oxycodone, [...] pain today. She is using Tylenol and Kipling for pain control and Eliquis for DVT prophylaxis along with JOSAFAT hose. She reports she is anxious to get home. Of note, Dr. Moreno was consulted upon arrival to [facility] due to concerns for SSI with incisional [...] arise. All pertinant portions of the clinical patient support assistant documentation was reviewed. Paige Damon I have reviewed the findings of the clinical patient support assistant and agree with their assessment. 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 She states she is not in any pain today and states her pain is controlled well. She is using [place] codone acetaminophen for pain relief as well as Tylenol prn. Her leg is wrapped instead of JOSAFAT hose and she is using Eliquis for DVT preventation. She is following touch down weight bearing protocol. Date: 02/02/2024 11:34 AM Patient: Cuate Goodman MR#: [id number] : 1940 Age: 83 y.o. Referring Physician: [...] Gomez MD, 5 mg at 02/02/24 0836 [[facility] Hold - Suspended Admission] bisacodyl (DULCOLAX) suppository 10 [...] Gomez MD, 1 tablet at 02/02/24 0835 [[facility] - Suspended Admission] Nystatin (MYCOSTATIN) oral suspension 500,000 Units, 500,000 Units, Swish & Swallow, 4x daily, Janet Moreno MD, 500,000 Units at 02/02/24 0835 [[facility] Hold - Suspended Admission] Ondansetron (ZOFRAN) tablet 4 mg, 4 mg, Oral, Q4H PRN, Mohan Gomez MD, 4 mg at 02/02/24 0840 [[facility] Hold - Suspended Admission] Pantoprazole (PROTONIX) tablet DR 40 mg, 40 mg, Oral, Daily, Mohan Gomez MD, 40 mg at 02/02/24 0836 [[facility] Hold - Suspended Admission] Polyethylene glycol [...] oxycodone, and penicillins. documented in this encounter [facility] 01-21-2024 Consult note Associated Order (s): [...] Mohan Gomez MD, 5 mg at 01/21/24 08 Docusate (COLACE) capsule 100 mg, 100 [...] Mohan Gomez MD, 5 mg at 01/20/24 7153 Allergies Allergen Reactions Morphine Nausea and Vomiting Other Reaction(s): GI intolerance Oxycodone Nausea and Vomiting Other Reaction(s): GI intolerance Penicillins Hives Vitals: 01/20/24 1941 01/20/24202501/21/2417 01/21/24721 BP: 138/84 142/69 Pulse: 87 65 Resp: [...] 0.60 (L) 01/21/2024 GLUCOSE 100 01/21/2024 Micro 7/5 Nares - 12/16/2023 positive nares test for MSSA 5/30 urine test positive for Klebsiella only resistant [...] Janet Moreno MD documented in this encounter [facility] 01-21-2024 Consult note Associated Order (s): [...] Janet Moreno MD documented in this encounter [facility] 01-19-2024 History and physical note I [...] CREATSERUM 0.70 01/13/2024 documented in this encounter [facility] 01-19-2024 History and physical note I [...] CREATSERUM 0.70 01/13/2024 documented in this encounter [facility] 01-19-2024 Nurse Note AVS given by ALLY, all questions addressed and pt stated understanding. Assessment unchanged and no complaints. Patient taken to swing bed by [facility] transportation. Per request of swing bed IV in right wrist left in flushed and locked with alcohol cap. Paperwork sent with transport and report given. [facility] 01-19-2024 Miscellaneous Notes AVS given by OBSTETRICS GYNECOLOGY MD, all questions addressed and pt stated understanding. [...] change noted from previous assessment by this OBSTETRICS GYNECOLOGY MD unless otherwise detailed in coordinating flow sheets. [...] reach. DEYSI dressing is no longer flashing, hand sign writer removes it per ortho note. Incision is CDI. Ice pack applied. Remains up in recliner. No change noted from previous assessment by this RN unless otherwise detailed in coordinating flow sheets. PRN ultram given per order for c/o left hip and torso pain. States her dinner order was called in by JOSY. Denies additional needs at this time, call [...] insurance approval for the Swing Unit in [place]. Call haddad in hand. Assessment is complete [...] utilized Taken 01/13/2024 1300 by Davina Blanchard Head of Bed (HOB) Positioning: HOB at [...] in bed. Assessment remains unchanged from previous. Bingo Usher redresses avril wraps to BLE. Call light [...] this time. Call light is in reach. Bingo Usher reviews charting by Madeleine CANALES, hand sign writer agrees with charting. Patient complains of [...] and she startled awake. Patient asked for Kipling and was told she was not due [...] addiment I am not going to a [facility]. I'm going home . Ave explained after [...] Pt c/o 10/10 pain to left hip. Kipling given - see MAR. Pt denies any further needs at this time. Call light within reach. Pt assessment remains unchanged with any exceptions noted in flowsheets. Pt is resting in bed, respirations even and unlabored. Fresh ice pack applied to left hip. DEYSI dressing intact and flashing green. Pt c/o 8/10 pain to left hip, Kipling given - see MAR. Pt denies any [...] liquid menu with patient. Patient requested lemon [place] soda. Soda given. Encouraged patient to try and rest. Family at the bedside. Safety education given. Call light within reach. Bed alarm set. Abductor pillow in place. Ice pack to Left hip POST OPERATIVE/PROCEDURE NOTE Cuate Goodman 83 y.o. female [id number] SURGEON Surgeons and Role: * Erik Heredia MD - Primary FUNERAL HOME GENERAL MANAGER RENE Monique ANESTHESIOLOGIST LABORER CONSTRUCTION OR LEAK GANG: JEFFREY Denny SURGICAL STAFF Bit Gatherer: Shantell Flood RN; Rebecca Baltazar RN; Magdalene Gilbert RN Nurse Practitioner: RENE Monique Mixing And Molding Machine Operator: Delores German Scrub Person: SALLY Kilgore; Zari [...] Implant Name Type Inv. Item Serial No. Flight Attendant/Inflight Supervisor Lot No. LRB No. Used Action Gaston Gription Acetabular Shell Sector 52mm OD copygram [employer] [id number] Left 1 Implanted Gaston ALTRX Polyethylene Acetabular Liner Neutral 36mm ID 52mm OD eXpressoUY [employer] [id number] Left 1 Implanted Cementralizer Stem Centralizer 10.5mm Cemented copygram [employer] [id number] Left 1 Implanted [place] Femoral Stem 12/14 Taper Cemented Size 5 STD 120mm eXpressoUY [employer] [id number] Left 1 Implanted [place] LV 1x40 [id number] Left 1 Implanted [place] LV 1x40 [id number] Left 1 Implanted [place] R 1x40 [id number] Left 1 Implanted Biolox Delta Ceramic Femoral Head +1.5 36mm MERLYN /14 Taper eXpressoUY [employer] [id number] Left 1 Implanted Suture [place], BioComposite Corkscrew FT,Vented with 1.3mm White/blue and white/black suture tape ARTHREX [id number] Left 1 Implanted Ti Trochanteric Reattachment Device w/Cables/Standard-Ster copygram [employer] [id number] Left 1 Implanted SPECIMENS ID Type Source Tests Collected by Time Destination 1 : Left Femoral head Permanent TISSUE SURGICAL PATHOLOGY REQUEST Erik Heredia MD 01/11/[address] APRN-OCCUPATIONAL THER January 11, 2024 5:48 PM 12/16/23 6707 Information Source Information Source patient Contact Information Director Prison Name Chelsea Menezes RN Living Environment Lives [...] Employment/Financial Employed? Retired Initial Discharge Planning DME (COLLECTIONS AND ARCHIVES DIRECTOR) [place] (has FWW) CM met with patient this date to discuss post-surgical discharge plans. Patient states that return home with family assist. Patient has wheeled walker. Patient denies any other questions or needs at this time. CM to continue to follow and assist with discharge plans. documented in this encounter [facility] 01-19-2024 Nurse Note Per patients request called and let contact Sonal daughter know her mother is transferring to swing bed. [facility] [facility] 01-19-2024 Nurse Note Called report to Nisha HERNANDEZ at [facility]. Transport set up. [facility] 01-19-2024 Plan of care note Problem: [...] Integrity Outcome: Adequate for Discharge [facility] 01-19-2024 Nurse Note No change noted from previous assessment by this ALLY unless otherwise detailed in coordinating flow sheets. Patient denies any needs at this time. Call light in reach. [facility] 01-19-2024 Hospital course Narrative Images from [...] Preop EKG at baseline. Known diastolic dysfunction. Digital Circuit Designer did clear her for surgery. She had [...] Surgical Final Report Patient Name: CUATE GOODMAN [facility]. Rec. #: [id number] Physician: ERIK HEREDIA Specimen(s) Received Left femoral [...] articular cartilage degeneration. Sectioning reveals unremarkable bone. Shade Hanger sections are submitted in one cassette and placed in decalcification solution prior to processing. Billing Fee Code(s) A: 27202, 17116 HEENT: NC/AT, PERRLA, EOMI, fundi benign, external [...] about: Should I take this medication? Follow-up: [place] [address] Follow up Swing Bed Upcoming Appointments (up to five)-Some appointments for Medical Center outpatient clinics or diagnostic testing locations are not displayed below Provider Department Dept Phone 02/02/2024 11:30 AM Paige Damon [facility] [phone] documented in this encounter [facility] 01-19-2024 Nurse Note Talisha Damon CNP updated that patient can be discharged to Swing Bed today. [facility] 01-19-[address] Monte updated that auth came through and pt can be discharged to Swing bed today, No new orders at this time. [facility] 01-19-2024 History of Presen t illness [...] on commode with use of grab bars. COLLECTIONS AND ARCHIVES DIRECTOR assisted pt with removing breif and pts gown noted to be wet. RUBBERIZING MECHANIC called in and assisted pt with gown change. Pt able to void and then pt compelted STS to FWW, Christina x1 and pt able to provide self pericare with this COLLECTIONS AND ARCHIVES DIRECTOR providing support with no major LOB noted. Pt then ambulated back into room for approx 10ft and pt states beginning to feel a little dizzy and asking to have bedside chair placed behind pt and then pt transfered to sitting in bedside chair. This COLLECTIONS AND ARCHIVES DIRECTOR supporting L LE while reclining chair and [...] Transfer Skill: Sit To Stand, Rehab Eval Schley (Sit-Stand Transfers) minimum assist (75% patient effort) Physical Assist/Nonphysical Assist: Sit/Stand 1 person assist Weight-Bearing Restrictions: Sit/Stand toe touch weight-bearing Assistive Device For Transfer: Sit/Stand 2 wheeled walker Gait Skills, PT Eval Level of Schley: Gait minimum assist (75% patients effort) Physical Assist/Nonphysical Assist: Gait 1 person assist Weight-Bearing Restrictions: Gait toe touch weight-bearing Assistive Device For Transfer: Gait 2 wheeled walker Gait Distance (10ft x2) Gait Analysis, PT Eval Gait Pattern Used swing-to gait Stair Negotiation Schley Level: Stair Negotiation unable to assess Plan [...] this time to adminster medication and this COLLECTIONS AND ARCHIVES DIRECTOR assisted pt with placing ice pack on [...] waiting on insurance auth to [facility], this nurse informed that social work has reached out to Agustin to see progress on auth. Will update [...] pivot before transferring to seated position on BS. Pt required asssiatnce with removing brief before sitting down on commode. Pt able to have a BM and void at this time. Additional staff in to assist pt with pt standing to FWW with Christina x1 and RUBBERIZING MECHANIC providing pt with pericare and placing new brief and purewick catheter. Pt then ambulated approx 8ft out of bathroom and states that she would need the chair placed behind her d/t fatigue. Chair placed behind pt and pt transfered to seated position. MAxA x2 for repositoining pt further back into chair. SCD placed on L LE and ice pack applied to L hip.[place] rolled placed on lateral side of L LE to promote proper positoining to follow global hip precautions. Pt states feeling very comfortable in this position. Call light left within reach at end of therapy session. Transfer Skill: Sit To Stand, Rehab Eval Schley (Sit-Stand Transfers) minimum assist (75% patient effort) Physical Assist/Nonphysical Assist: Sit/Stand 1 person assist Weight-Bearing Restrictions: Sit/Stand toe touch weight-bearing Assistive Device For Transfer: Sit/Stand 2 wheeled walker Gait Skills, PT Eval Level of Schley: Gait minimum assist (75% patients effort) Physical Assist/Nonphysical Assist: Gait 1 person assist Weight-Bearing Restrictions: Gait toe touch weight-bearing Assistive Device For Transfer: Gait 2 wheeled walker Gait Distance (25ft, 10ft, 8ft) Stair Negotiation Schley Level: Stair Negotiation unable to assess Plan [...] Transfer Skill: Sit To Stand, Rehab Eval Schley (Sit-Stand Transfers) moderate assist (50% patient effort) Physical Assist/Nonphysical Assist: Sit/Stand 1 person assist Weight-Bearing Restrictions: Sit/Stand toe touch weight-bearing Assistive Device For Transfer: Sit/Stand 2 wheeled walker Gait Skills, PT Eval Level of Schley: Gait (Patient refuses to attempt due to [...] time preferred Lower Body Dressing Level of Schley (declned to complete) Clinical Impression Co-evaluation/co-treatment performed? No simultaneous skilled care performed Patient Instruction/Education comments continued education to ensure safe ADL participation and functional transfers; HEP Therapy Frequency 6 times a week (frequency change due to patient making good progress towards goals and awaiting placement for rehab prior to dc home) Therapist Information License # [id number] 01/15/24 0955 Time In/Out Time In 0955 [...] Transfer Skill: Sit To Stand, Rehab Eval Schley (Sit-Stand Transfers) minimum assist (75% patient effort) Physical Assist/Nonphysical Assist: Sit/Stand 1 person assist Weight-Bearing Restrictions: Sit/Stand toe touch weight-bearing Assistive Device For Transfer: Sit/Stand 2 wheeled walker Gait Skills, PT Eval Level of Schley: Gait minimum assist (75% patients effort) Physical [...] on global hip precautions Maintain frequency yes HEAD OF RESEARCH & INSIGHTS spoke with Swing Bed. Insurance authorization still pending. HEAD OF RESEARCH & INSIGHTS met with patient and son, questions answered. HEAD OF RESEARCH & INSIGHTS to follow. 01/14/24 0830 Time In/Out Time [...] pivot before sitting down on commode with C platform across toilet. Pt with extended time on commode with RUBBERIZING MECHANIC providing pt with changing purewick and changing [...] Transfer Skill: Sit To Stand, Rehab Eval Schley (Sit-Stand Transfers) minimum assist (75% patient effort) Physical Assist/Nonphysical Assist: Sit/Stand 1 person assist Weight-Bearing Restrictions: Sit/Stand toe touch weight-bearing Assistive Device For Transfer: Sit/Stand 2 wheeled walker Gait Skills, PT Eval Level of Schley: Gait minimum assist (75% patients effort) Physical Assist/Nonphysical Assist: Gait 1 person assist Weight-Bearing Restrictions: Gait toe touch weight-bearing Assistive Device For Transfer: Gait 2 wheeled walker Gait Distance (10ft x2) Gait Analysis, PT Eval Gait Pattern Used swing-to gait Stair Negotiation Schley Level: Stair Negotiation unable to assess Plan [...] with Christina x2 with pt using leg last turner on L LE with good technique demonstrated [...] Supine to Sit, Rehab Eval Level of Schley: Supine/Sit minimum assist (75% patients effort) (leg last turner on L LE) Physical Assist/Nonphysical Assist: Supine/Sit 2 person assist Transfer Skill: Sit To Stand, Rehab Eval Schley (Sit-Stand Transfers) minimum assist (75% patient effort) Physical Assist/Nonphysical Assist: Sit/Stand 2 person assist Weight-Bearing Restrictions: Sit/Stand toe touch weight-bearing Assistive Device For Transfer: Sit/Stand 2 wheeled walker Gait Skills, PT Eval Level of Schley: Gait minimum assist (75% patients effort) Physical Assist/Nonphysical Assist: Gait 2 person assist Weight-Bearing Restrictions: Gait toe touch weight-bearing Assistive Device For Transfer: Gait 2 wheeled walker Gait Distance 5 feet (chair to bed) Gait Analysis, PT Eval Gait Pattern Used swing-to gait Stair Negotiation Schley Level: Stair Negotiation unable to assess Plan [...] Sit to Supine, Rehab Eval Level of Schley: Sit/Supine maximum assist (25% patients effort) Physical Assist/Nonphysical Assist: Sit/Supine 2 person assist Transfer Skill: Sit To Stand, Rehab Eval Schley (Sit-Stand Transfers) minimum assist (75% patient effort) Physical Assist/Nonphysical Assist: Sit/Stand 2 person assist Weight-Bearing Restrictions: Sit/Stand toe touch weight-bearing Assistive Device For Transfer: Sit/Stand standard walker Gait Skills, PT Eval Level of Schley: Gait minimum assist (75% patients effort) Physical [...] to progress overall mobility Patient referral to [place] was faxed, waiting on that swing bed in [place] called and has a bed open, spoke [...] Orders Procedures DIET REGULAR Please provide one [place] Ensure Max over ice at 1430 daily [...] reasons and processes of the placement, Daughter Luh and Granddaughter were present and all agreed Cuate did need a short stay at a rehab facility. I contacted swing bed, no beds available , contacted [facility] per patients request and no beds available there. Una caal did recommend [facility], I did reach out to them [...] Supine to Sit, Rehab Eval Level of Schley: Supine/Sit moderate assist (50% patients effort) Physical Assist/Nonphysical Assist: Supine/Sit 1 person assist Transfer Skill: Sit To Stand, Rehab Eval Schley (Sit-Stand Transfers) moderate assist (50% patient effort) Physical Assist/Nonphysical Assist: Sit/Stand 2 person assist Weight-Bearing Restrictions: Sit/Stand toe touch weight-bearing Assistive Device For Transfer: Sit/Stand standard walker Gait Skills, PT Eval Level of Schley: Gait minimum assist (75% patients effort) Physical [...] educated on hip precautions, use of leg last turner and weight bearing status. Pt educated to [...] yes, treatment indicated Impairments Found (PT Eval) Strength;Balance;Transfers;Gait/ Locomotion;Edema;Aerobic capacity/endurance Rehab Potential (PT Eval) good Therapy [...] Muscle Testing (MMT) Dominant Hand right Hand Human Resources Technician, Right moderate Hand Human Resources Technician, Left moderate Bed Mobility Skill: Supine to Sit, Rehab Eval Level of Schley: Supine/Sit minimum assist (75% patients effort) Physical Assist/Nonphysical Assist: Supine/Sit 1 person assist Transfer Skill: Sit to Stand, Rehab Eval Level of Schley: Sit/Stand moderate assist (50% patients effort) Physical Assist/Nonphysical Assist: Sit/Stand 2 person assist Weight-Bearing Restrictions: Sit/Stand toe touch weight-bearing Assistive Device for Transfer: Sit/Stand standard walker Transfer Skill: Toilet Transfer, Rehab Eval Assistive Device standard walker BADL Evaluation Additional Documentation Yes Upper Body Dressing Level of Schley minimum assist (75% patients effort) Lower Body Dressing Level of Schley (refused to practice) Toileting Level of Schley (refused, reports wanting to use purwick only) Grooming Schley Level (Grooming) grooming skills;wash face, hands;set up [...] sit min A x1 person, with leg last turner and head of bead elevated. Pt able [...] and functional transfers Therapist Information License # [id number] Pt will complete LB dressing with min [...] WITH DR HEREDIA. documented in this encounter [facility] 01-19-2024 Nurse Note Patient resting in bed. Assessment remains unchanged from previous. Call light is within reach. [facility] 01-19-2024 Nurse Note Pt resting in the chair. Assessment remains unchanged from previous. Pt's SPO2 is 84% on room air, so patient is put on 2L nasal cannula and SPO2 is now 90%. Call light is within reach. [facility] 01-19-2024 Nurse Note DEYSI dressing is no longer flashing, hand sign writer removes it per ortho note. Incision is CDI. Ice pack applied. [facility] 01-18-2024 Nurse Note Remains up in recliner. No change noted from previous assessment by this RN unless otherwise detailed in coordinating flow sheets. PRN ultram given per order for c/o left hip and torso pain. States her dinner order was called in by RUBBERIZING MECHANIC. Denies additional needs at this time, call light in reach, recliner wheels locked. [facility] 01-18-2024 Plan of care note Problem: Adult Inpatient Plan of Care Goal: Plan of Care Review Outcome: Progressing Goal: Patient-Specific Goal (Individualized) Outcome: Progressing Goal: Absence of Hospital-Acquired Illness or Injury Outcome: Progressing Goal: Optimal Comfort and Wellbeing Outcome: Progressing Goal: Readiness for Transition of Care Outcome: Progressing Problem: Skin Injury Risk Increased Goal: Skin Health and Integrity Outcome: Progressing [facility] 01-18-2024 Nurse Note Remains up in recliner. No change noted from previous assessment by this RN unless otherwise detailed in coordinating flow sheets. Denies additional needs at this time, call light in reach, recliner wheels locked. [facility] 01-18-2024 Consult note Formatting of th is note is different from the original. Medical consultation Patient is a week postop total hip arthroplasty. No new complaints. Pain is adequately controlled. Therapy is progressing. Awaiting approval from insurance for swing bed. Known right bundle branch block. Preop EKG at baseline. Known diastolic dysfunction. Digital Circuit Designer did clear her for surgery. She had [...] Surgical Final Report Patient Name: CUATE GOODMAN [facility]. Rec. #: [id number] Physician: ERIK HEREDIA Specimen(s) Received Left femoral [...] articular cartilage degeneration. Sectioning reveals unremarkable bone. Shade Hanger sections are submitted in one cassette and placed in decalcification solution prior to processing. Billing Fee Code(s) A: 53320, 65199 HEENT: NC/AT, PERRLA, EOMI, fundi benign, external [...] minutes total time. Luis Monte MD 01/18/2024 [facility] 01-18-2024 Consult note Formatting of th is note is different from the original. Medical consultation Patient is a week postop total hip arthroplasty. No new complaints. Pain is adequately controlled. Therapy is progressing. Awaiting approval from insurance for swing bed. Known right bundle branch block. Preop EKG at baseline. Known diastolic dysfunction. Digital Circuit Designer did clear her for surgery. She had [...] Surgical Final Report Patient Name: CUATE GOODMAN [facility]. Rec. #: [id number] Physician: ERIK HEREDIA Specimen(s) Received Left femoral [...] articular cartilage degeneration. Sectioning reveals unremarkable bone. Shade Hanger sections are submitted in one cassette and placed in decalcification solution prior to processing. Billing Fee Code(s) A: 03290, 50655 HEENT: NC/AT, PERRLA, EOMI, fundi benign, external [...] Preop EKG at baseline. Known diastolic dysfunction. Digital Circuit Designer did clear her for surgery. She had [...] Patient Name: CUATE GOODMAN Med. Rec. #: [id number] Physician: ERIK HEREDIA Specimen(s) Received Left femoral [...] articular cartilage degeneration. Sectioning reveals unremarkable bone. Shade Hanger sections are submitted in one cassette and placed in decalcification solution prior to processing. Billing Fee Code(s) A: 99091, 73186 HEENT: NC/AT, PERRLA, EOMI, fundi benign, external [...] Preop EKG at baseline. Known diastolic dysfunction. Digital Circuit Designer did clear her for surgery. She had [...] Preop EKG at baseline. Known diastolic dysfunction. Digital Circuit Designer did clear her for surgery. She had [...] optimized by her primary care provider and set rider. Preop testing notable for an INR of [...] Preop EKG at baseline. Known diastolic dysfunction. Digital Circuit Designer did clear her for surgery. She had [...] Monte MD 01/11/2024 documented in this encounter [facility] 01-18-2024 Nurse Note Laying in recliner upon this RN arrival to patient room, resting quietly with eyes closed, respirations even and unlabored. Arouses easily to voice, appropriate to conversation. Shift assessment initiated, detailed in coordinating flow sheets. Denies additional needs at this time, call light in reach, recliner wheels locked. [facility] 01-18-2024 Plan of care note Problem: Adult Inpatient Plan of Care Goal: Plan of Care Review Outcome: Progressing Goal: Patient-Specific Goal (Individualized) Outcome: Progressing Goal: Absence of Hospital-Acquired Illness or Injury Outcome: Progressing Goal: Optimal Comfort and Wellbeing Outcome: Progressing Goal: Readiness for Transition of Care Outcome: Progressing Problem: Skin Injury Risk Increased Goal: Skin Health and Integrity Outcome: Progressing [facility] 01-18-2024 Nurse Note Patient's assessment remains unchanged from previous assessment this shift, any exceptions noted in flowsheets. Patient resting comfortably in chair, declines any needs at this time. Call light within reach,chair alarm active [facility] 01-17-2024 Consult note Formatting of th [...] Preop EKG at baseline. Known diastolic dysfunction. Digital Circuit Designer did clear her for surgery. She had [...] Surgical Final Report Patient Name: CUATE GOODMAN [facility]. Rec. #: [id number] Physician: ERIK HEREDIA Specimen(s) Received Left femoral head Clinical / Pre-Operative Diagnosis Osteoarthritis of left hip unspecified osteoarthritis type Post-Operative Diagnosis Not provided Surgical Procedure Arthroplasty hip total latera approach Diagnosis: Left femoral head, Excision: -Consistent with degenerative joint disease Electronically Signed lks/01/13/2024 Khoa Vieyra DO Gross Description: The specimen is received in formalin, and labeled left femoral tawanna, Cuate Goodman and date of 1940. The specimen consists of a femoral head and neck measuring 5.5 x 5 x 5 cm with articular cartilage degeneration. Sectioning reveals unremarkable bone. Shade Hanger sections are submitted in one cassette and placed in decalcification solution prior to processing. Billing Fee Code(s) A: 08305, 39979 HEENT: NC/AT, PERRLA, EOMI, fundi benign, external [...] minutes total time. Luis Monte MD 01/17/[address] [facility] 01-17-2024 Nurse Note The top of the right foot is no longer red. Cuate has brisk cap refill on both lower extremities. An avril wrap was applied to Cuate right lower extremity from the toes to her knee. She is currently denying pain. She is watching TV and is pleasant. She is still awaiting insurance approval for the Swing Unit in [place]. Call haddad in hand. [facility] 01-17-2024 Nurse Note Assessment is complete and remains unchanged from previous at this time with any exceptions noted in the flowsheet. Patient denies further needs and is left with call light and personals in reach. [facility] 01-17-2024 Nurse Note Assessment is complete and remains unchanged from previous at this time with any exceptions noted in the flowsheet. Patient denies further needs and is left with call light and personals in reach. [facility] 01-17-2024 Nurse Note Resting in chair. Assessment unchanged from earlier. Call light in reach. [facility] 01-16-2024 Nurse Note Patient remains resting in recliner chair beside of bed. Voices no needs. Was medicated earlier for pain. Assessment unchanged from previous. Ice maintained to left hip. Call light in reach. [facility] 01-16-2024 Plan of care note Problem: [...] rest periods promoted Nutrition Interventions: diet adjusted [facility] 01-16-2024 Nurse Note Afternoon assessment completed. No changes noted. Patient resting with no complaints. Call light and phone within reach. [facility] 01-16-2024 Nurse Note No change noted from previous assessment by this RN unless otherwise detailed in coordinating flow sheets. Patient denies any needs at this time. [facility] 01-16-2024 Nurse Note Assessment unchanged from prior unless otherwise charted. Patient resting in bed, call light within reach, Up In Chair, Patient denies any current needs at this time. [facility] 01-15-2024 Plan of care note Problem: [...] rest periods promoted Nutrition Interventions: diet adjusted [facility] 01-15-2024 Nurse Note Afternoon assessment completed. No changes noted. Patient resting in the chair with no complaints. Call light and phone within reach. [facility] 01-15-2024 Nurse Note No change noted from previous assessment by this RN unless otherwise detailed in coordinating flow sheets. Patient denies any needs at this time. [facility] 01-15-2024 Nurse Note Pt assessment remains [...] at this time. Call light within reach. [facility] 01-15-2024 Nurse Note Pt assessment remains unchanged with any exceptions noted in flowsheets. Pt appears to be sleeping, respirations even and unlabored. Call light within reach. [facility] 01-14-2024 Nurse Note Pt assessment complete and documented in flowsheets. POC reviewed with pt. Pt is alert, respirations even and unlabored. No acute distress observed. Fresh ice pack applied to left hip. DEYSI dressing intact and flashing green. Pt c/o 8/10 pain to left hip. Tramadol given - see MAR. Pt denies any further needs at this time. Call light within reach. [facility] 01-14-2024 Plan of care note Problem: [...] rest periods promoted Nutrition Interventions: diet adjusted [facility] 01-14-2024 Nurse Note Afternoon assessment completed. No changes noted. Patient resting with no complaints. Call light and phone within reach. [facility] 01-14-2024 Nurse Note No change noted from previous assessment by this RN unless otherwise detailed in coordinating flow sheets. Patient denies any needs at this time. . [facility] 01-14-2024 Nurse Note Pt resting in chair. Assessment remains unchanged from previous. Call light is within reach, SCDs are on. . [facility] 01-14-2024 Nurse Note Pt resting in bed. Assessment remains unchanged from previous. Bingo Usher redresses avril wraps to BLE. Call light is within reach and bed alarm is on. . [facility] 01-13-2024 Nurse Note Updates given to daughter Sonal. She denies any questions or concerns. [facility] 01-13-2024 Consult note Formatting of th [...] Preop EKG at baseline. Known diastolic dysfunction. Digital Circuit Designer did clear her for surgery. She had [...] minutes total time. Luis Monte MD 01/13/2024 [facility] 01-13-2024 Nurse Note No changes noted from previous assessment by this RN except what is detailed in coordinating flow sheets. Patient denies needs at this time. Call light is in reach. [facility] 01-13-2024 Nurse Note Patient denies any pain at this time. Patient denies need for pain medication and states she will call whenever she needs them. Med ULLOA at bedside. No changes noted from previous assessment by this RN except what is detailed in coordinating flow sheets. Patient denies needs at this time. Call light is in reach. [facility] 01-13-2024 Nurse Note Voicemail left for [...] this time. Call light is in reach. [facility] 01-13-2024 Nurse Note Bingo Usher reviews charting by Madeleine CANALES, hand sign writer agrees with charting. [facility] 01-13-2024 Nurse Note Patient complains of chest pain she describes it as pressure that is moving left. She states it feels like how it fells when I get indigestion . Dr. Monte notified. New orders received. [facility] 01-13-2024 Nurse Note Reassessment complete at this time and remains unchanged from previous. Patient states I slept really well last night. I think the Tramadol helped a lot. Patient rates pain 5/10 and 8/10 with spasms, movement. Patient DEYSI flashing green. Patient denies further needs and is left with call light and personals within reach. [facility] 01-13-2024 Nurse Note Reassessment complete at this time. Patient states Pain is much better. Patient denies any further needs and is left with call light and personals within reach. [facility] 01-12-2024 Consult note Formatting of th [...] Preop EKG at baseline. Known diastolic dysfunction. Digital Circuit Designer did clear her for surgery. She had [...] minutes total time. Luis Monte MD 01/12/2024 [facility] 01-12-2024 Nurse Note Assessment complete at this time with any exceptions noted in the flowsheets. Patient was snoring upon this nurse entering the room. Patient did not awaken to verbal stimulation. This nurse touched patients arm in an attempt to awaken her. Patient was still snoring. This nurse rubbed patient and she startled awake. Patient asked for Kipling and was told she was not due for two more hours. Patient agreeable to wait. Patient denies further needs and is left with call light and personals within reach. [facility] 01-12-2024 Nurse Note Patient son's Mat at bedside at this time. This RN questioned if the patient would like PRN pain medication, patient states I'll call you when I want them . Denies needs at this time, call light within reach. [facility] 01-12-2024 Nurse Note No changes noted from previous assessment by this RN except what is detailed in coordinating flow sheets. Patient denies needs at this time. Call light is in reach. [facility] 01-12-2024 Nurse Note Bilaterally AVRIL wrap applied to lower legs with MARY Mcgee at this time per Randell AVILA. [facility] 01-12-2024 Hospital Discharg e instructions Katlyn [...] PM EDT Dr. Heredia's office number is [phone], option #2 for the nurse. If after hours, please contact the main hospital number, and ask for Dr. Heredia's on-call provider. Contact Office ([phone]) if: > Any falls or injuries > [...] be sent through Care Everywhere.acetaminophen and hydrocodone (Portuguese)acetaminophen (oral) (Portuguese)docusate (oral/rectal) (Portuguese)apixaban (Portuguese)Blood Thinners: How to Prevent Bleeding ([facility]) (Portuguese)documented in this encounter [facility] 01-12-2024 Nurse Note No changes noted from previous assessment by this RN except what is detailed in coordinating flow sheets. Patient denies needs at this time. Call light is in reach. T [facility] 01-12-[address] Mackey OCCUPATIONAL THER rounding. He discussed the quality of her bone from in the OR and the slight intraoperative fracture and the strict precautions including global and TDWB resulting ti the need for a SNF on discharge. Cuate extremely addiment I am not going to a chcf. I'm going home . Ave explained after PT/OT evaluation today we might to had an additional conversation. Cuate looks to be upset over this visit at this time. The plan for nursing will be to now allow PT/OT to evaluate and clear explain options on discharge. T [facility] 01-12-2024 Nurse Note Pt assessment remains unchanged with any exceptions noted in flowsheets. Pt is resting in bed, respirations even and unlabored. Fresh ice pack applied to left hip. DEYSI dressing intact and flashing green. Pt c/o 10/10 pain to left hip. Kipling given - see MAR. Pt denies any further needs at this time. Call light within reach. [facility] 01-11-2024 Nurse Note Pt assessment remains unchanged with any exceptions noted in flowsheets. Pt is resting in bed, respirations even and unlabored. Fresh ice pack applied to left hip. DEYSI dressing intact and flashing green. Pt c/o 8/10 pain to left hip, Kipling given - see MAR. Pt denies any further needs at this time. Call light within reach. [facility] 01-11-2024 Nurse Note Pt assessment complete [...] at this time. Call light within reach. [facility] 01-11-2024 Progress note Formatting of t his note might be different from the original. Pt nauseated at this time IS not done RN aware and will give medication for nausea and then instruct pt. [facility] 01-11-2024 Consult note Associated Order (s): IP CONSULT TO GENERAL MEDICINE Medical consultation Patient is an 83-year-old female who presents for total hip arthroplasty. She was at her baseline state of health prior to surgery and was medically optimized by her primary care provider and set rider. Preop testing notable for an INR of [...] Preop EKG at baseline. Known diastolic dysfunction. Digital Circuit Designer did clear her for surgery. She had [...] minutes total time. Luis Monte MD 01/11/2024 [facility] 01-11-2024 Nurse Note Patient returned to [...] liquid menu with patient. Patient requested lemon [place] soda. Soda given. Encouraged patient to try and rest. Family at the bedside. Safety education given. Call light within reach. Bed alarm set. [facility] 01-11-2024 Nurse Note Abductor pillow in place. Ice pack to Left hip [facility] 01-11-2024 Nurse Note Patient transported to PACU with Chava PATHAK. Reports given to Nely HERNANDEZ at 1759H. OR 4 temp 67.2F, humidity 40% documented in this encounter [facility] 01-11-2024 Nurse Surgical operation note Patient transported to PACU with Chava PATHAK. Reports given to Nely HERNANDEZ at 1759H. [facility] 01-11-2024 Surgery Postoperative evaluation and management note POST OPERATIVE/PROCEDURE NOTE Cuate Goodman 83 y.o. female [id number] SURGEON Surgeons and Role: * Erik Heredia MD - Primary FUNERAL HOME GENERAL MANAGER RENE Monique ANESTHESIOLOGIST LABORER CONSTRUCTION OR LEAK GANG: JEFFREY Denny SURGICAL STAFF Bit Gatherer: Shantell Flood RN; Rebecca Baltazar RN; Magdalene Gilbert RN Nurse Practitioner: RENE Monique Mixing And Molding Machine Operator: Delores German Scrub Person: SALLY Kilgore; Zari [...] Implant Name Type Inv. Item Serial No. Flight Attendant/Inflight Supervisor Lot No. LRB No. Used Action Gaston Gription Acetabular Shell Sector 52mm OD copygram [employer] On [employer] Flea [id number] Left 1 Implanted Gaston ALTRX Polyethylene Acetabular Liner Neutral 36mm ID 52mm OD WantfulS On [employer] Flea [id number] Left 1 Implanted Cementralizer Stem Centralizer 10.5mm Cemented roomlinx [id number] Left 1 Implanted [place] Femoral Stem 07/01 Taper Cemented Size 5 STD 120mm [employer]PU[employer] [id number] Left 1 Implanted [place] LV 1x40 [id number] Left 1 Implanted [place] LV 1x40 [id number] Left 1 Implanted [place] R 1x40 [id number] Left 1 Implanted Biolox Delta Ceramic Femoral Head +1.5 36mm MERLYN 07/01 Taper [employer] [id number] Left 1 Implanted Suture [place], BioComposite Corkscrew FT,Vented with 1.3mm White/blue and white/black suture tape ARTHREX [id number] Left 1 Implanted Ti Trochanteric Reattachment Device w/Cables/Standard-Ster [employer] [id number] Left 1 Implanted SPECIMENS ID Type Source Tests Collected by Time Destination 1 : Left Femoral head Permanent TISSUE SURGICAL PATHOLOGY REQUEST Erik Heredia MD 01/11/[address] APRN-MARGARITA January 11, 2024 5:48 PM [facility] 01-11-2024 Nurse Surgical operation note OR 4 temp 67.2F, humidity 40% [facility] 01-11-2024 Note Shantell Dasilva RN 01/10 [...] and locked. [X] Tray table within reach. [facility] 01-11-2024 Procedure note Associated Ord er(s): [...] and locked. [X] Tray table within reach. [facility] 01-11-2024 Procedure note Associated Ord er(s): [...] table within reach. documented in this encounter [facility] 12-16-2023 Nurse Note 12/16/23 9203 Information Source Information Source patient Contact Information Director Prison Name Chelsea Menezes RN Living Environment Lives [...] Employment/Financial Employed? Retired Initial Discharge Planning DME (COLLECTIONS AND ARCHIVES DIRECTOR) Walker (has FWW) CM met with patient this date to discuss post-surgical discharge plans. Patient states that return home with family assist. Patient has wheeled walker. Patient denies any other questions or needs at this time. CM to continue to follow and assist with discharge plans. T [facility] 12-01-2023 History of Presen t illness [...] 12/01/2023 2:14 PM Patient: Cuate Goodman MR#: [id number] : 1940 Age: 83 y.o. Referring Physician: [...] pain. 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 PHYSICAL EXAM: This is an alert, [...] joint space, subchondral sclerosis, osteophyte formation, and [id number] contact. IMPRESSION: 1.) Severe symptomatic end-stage arthritis, [...] of limb, and ultimately loss of life. nursing home expectations, risks and general implant survivorship were also discussed. Despite these risks, the patient would like to proceed with surgical planning. Today, we will initiate the pre-surgical process including nasal MRSA screening, scheduling an appointment for [facility] and the potential surgical date, and reviewing [...] Unknown Penicillins Hives documented in this encounter [facility] Evaluation + Plan note No data available for this section [facility] Evaluation note Diagnosis Pain of left hip- Primary Osteoarthritis of left hip, unspecified osteoarthritis type documented in this encounter [facility] SystemEvaluation note* Diagnosis S/P total hip arthroplasty- Primary Hip joint replacement by other means Preop testing Preoperative examination, unspecified Pain in other specified joint Osteoarthritis of left hip, unspecified osteoarthritis type Acute postoperative pain of left hip Status post total replacement of left hip documented in this encounter [facility] SystemEvaluation note* Diagnosis S/P total left hip arthroplasty- Primary documented in this encounter [facility] SystemEvaluation note* Diagnosis S/P total left hip arthroplasty- Primary S/P total left hip arthroplasty 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 Acquired absence of kidney documented in this encounter [facility] SystemEvaluation note* Diagnosis S/P total left hip arthroplasty- Primary S/P total left hip arthroplasty 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 Acquired absence of kidney documented in this encounter [facility]* Diagnosis S/P total left hip arthroplasty- Primary [facility] Diagnosis Primary osteoarthritis of left hip- Primary Primary localized osteoarthrosis, pelvic region and thigh documented [facility] this [facility] System[facility] noteNo assessment information availableKeenan [facility] Work Phone: Progress note No data available for this section [facility] Summary Purpose Family History No Family [...] HIP WITH PELVIS LEFT Erik Heredia MD [address] [place] [phone] Referral ID Status Reason Start Date Expiration Date V isits Requested Visits Authorized [id number] New Request 11/19/2023 12/13/2024 1 1 Specialty Diagnoses / Procedures Referred By Contac t Referred To Contact Procedures ECG Luis Monte MD [address] [place] [phone] Referral ID Status Reason Start Date Expiration Date V isits Requested Visits Authorized [id number] New Request 01/13/2024 02/06/2025 1 1 Specialty Diagnoses / Procedures Referred By Contac t Referred To Contact [facility] REV LOC [address] [place] [phone] Referral ID Status Reason Start Date Expiration Date Visits Re quested Visits Authorized Specialty Diagnoses / Procedures Referred By Contac t Referred To Contact Diagnoses S/P total left hip arthroplasty Procedures XR HIP WITH PELVIS LEFT Paige Damon [address] [place] [address] Referral ID Status Reason Start Date Expiration Date V isits Requested Visits Authorized [id number] New Request 01/26/2024 02/19/2025 1 1 Referral ID Status Reason Start Date Expiration Date V isits Requested Visits Authorized [id number] New Request 02/17/2024 03/13/2025 1 1 Additional Source Comments INFORMATION SOURCE (unrecogn ized section and content) DATE CREATED AUTHOR 11/20/2022 [facility] DATE CREATED AUTHOR AUTHOR'S ORGANIZ ATION 09/19/2023 [facility] DATE CREATED AUTHOR AUTHOR'S ORGANIZ ATION 11/07/2023 [facility] EPIC DATE CREATED AUTHOR AUTHOR'S ORGANIZ ATION 02/14/2024 [facility] DATE CREATED AUTHOR AUTHOR'S ORGANIZ ATION 03/20/2024 [facility] DATE CREATED AUTHOR AUTHOR'S ORGANIZ ATION 08/01/2024 [facility] DATE CREATED AUTHOR AUTHOR'S ORGANIZ ATION 09/01/2024 [facility] DATE CREATED AUTHOR AUTHOR'S ORGANIZ ATION 03/31/2025 [facility] Reason for Visit (unrecogniz ed section and content) Specialty Diagnoses / Procedures Referred By Abiodun santana Referred To Contact Diagnoses Pain of left hip Procedures XR HIP WITH PELVIS LEFT Erik Heredia MD [address] [place], [place] [phone] Referral ID Status Reason Start Date Expiration Date V isits Requested Visits Authorized [id number] New Request 11/19/2023 12/13/2024 1 1 Reason Comments Pain Specialty Diagnoses / Procedures Referred By Abiodun santana Referred To Contact Diagnoses Osteoarthritis of left hip, unspecified osteoarthritis type Osteoarthritis of left hip, unspecified osteoarthritis type [M16.12] Procedures AL ARTHRP ACETBLR/PROX FEM PROSTC AGRFT/ALGRFT ARTHROPLASTY HIP TOTAL LATERAL APPROACH Erik Heredia MD [address] [place] [address] Referral ID Status Reason Start Date Expiration Date Visits Re quested Visits Authorized [id number] 12/06/2023 1 1 Reason Comments Surgical Follow-up 01/11/24 LTHA-AL Specialty Diagnoses / Procedures Referred By Abiodun santana Referred To Contact Diagnoses S/P total left hip arthroplasty Procedures XR HIP WITH PELVIS LEFT Paige Damon [address] [place] [address] Referral ID Status Reason Start Date Expiration Date V isits Requested Visits Authorized [id number] New Request 01/26/2024 02/19/2025 1 1 Referral ID Status Reason Start Date Expiration Date V isits Requested Visits Authorized [id number] New Request 02/17/2024 03/13/2025 1 1 Reason Comments Post Op Visit 01/11/24 Weight beari ng check left total hip arthroplasty Post Op Visit Specialty Diagnoses / Procedures Referred By Abiodun santana Referred To Contact Diagnoses Hx of total hip arthroplasty, left Procedures XR HIP WITH PELVIS LEFT Ave Mackey, AGRICULTURAL CHEMIST-OCCUPATIONAL THER [address] [facility] [place] [address] Referral ID Status Reason Start Date Expiration Date V isits Requested Visits Authorized [id number] New Request 03/07/2024 04/01/2025 1 1 Reason Comments Pain Care Teams (unrecognized sec tion and content) Mobile Heavy Equipment Operator Relationship Specialty Start Date End Date Truman Boo Jr., DO [address] [phone] PCP - General Orthopaedic Surgery 11/04/23 Mobile Heavy Equipment Operator Relationship Specialty Start Date End Date Truman Boo Jr., DO [address] [address] PCP - General Orthopaedic Surgery 11/04/23 12/02/23 Mobile Heavy Equipment Operator Relationship Specialty Start Date End Date Tian Kuhn DO [address] [place] [phone] PCP - General Family Medicine 12/03/23 Mobile Heavy Equipment Operator Relationship Specialty Start Date End Date Tian Kuhn DO [address] [place] [phone] PCP - General Family Medicine 12/03/23 Mobile Heavy Equipment Operator Relationship Specialty Start Date End Date Tian Kuhn DO [address] [place] [address] PCP - General Family Medicine 12/03/23 Mobile Heavy Equipment Operator Relationship Specialty Start Date End Date Tian Kuhn [address] [place] [address] PCP - General Family Medicine 12/03/23 Mobile Heavy Equipment Operator Relationship Specialty Start Date End Date KuhnTian [address] [place] [address] PCP - General Family Medicine 12/03/23 Mobile Heavy Equipment Operator Relationship Specialty Start Date End Date KuhnTianDO [address] [place] [address] PCP - General Family Medicine 12/03/23 Mobile Heavy Equipment Operator Relationship Specialty Start Date End Date Bam TianDO [address] [place] [address] PCP - General Family Medicine 12/03/23 Mobile Heavy Equipment Operator Relationship Specialty Start Date End Date Bam TianDO [address] [place] [address] PCP - General Family Medicine 12/03/23 Team [...] July 18, 2024 End: July 18, 2024 Mobile Heavy Equipment Operator Relationship Specialty Start Date End Date Tian Kuhn MD [address] [place] [address] [address] [place], [place] [phone] Referring Physician Orthopaedic Surgery 11/03/23 Scheduled Active [...] RN) 09 (Given - Provider: Amairani Lim RN)2237 (Given [...] MARY)2111 (Given - Provider: Patricia Malin LPN) 0805 (Given - Provider: Cherri Masterson LPN) Docusate (COLACE) capsule 100 mg 100 mg, Oral, EVERY 12 HOURS, First dose (after last modification) on Sat 24 at 2100, Until Discontinued 0838 (Given - [...] per Dr Moreno order Item stocked in [facility] 2227 (Given - Provider: Kimber Sanchez LPN) [...] refused) 841 (Not Given - Provider: Ramona Mckeon, RN - Reason: Patient/family refused)2116 (Not Given [...] LPN) 0842 (Given - Provider: Ramona Mckeon, MARY)211 (Given - Provider: Patricia Malin LPN) 0805 [...] 0842 (Given - Provider: Ramona Mckeon, RN) 0805 [...] LPN) 0841 (Given - Provider: Ramona Mckeon, MARY)2113 (Given - Provider: Patricia Malin LPN) 0808 [...] Dr Moreno order Item stocked in [facility] 2228 (Given - Provider: Kimber Sanchez LPN) 2117 [...] BE BASED ON THE PRIMARY CLINICAL RECORDS. [facility] [employer] [facility]. provides no warranty or guarantee of the accuracy or completeness of information in this document.
[2025-04-20 13:05] LABS: Anion Gap 12.3; Blood Urea Nitrogen 26.0 mg/dL (7.0-18.0); Calcium 9.7 mg/dL (8.5-10.1); Carbon Dioxide 29.2 mmol/L (21.0-32.0); Chloride 103 mmol/L (98-107); Estimated GFR (African America >60 (>=60 mL/min/1.73m^2); Estimated GFR (Non-African Ame >60 (>=60 mL/min/1.73m^2); Glucose 100 mg/dL (74-106); NT Pro B Type Natriuretic Pept 297.0 pg/mL (<=1800.0); Potassium 4.5 mmol/L (3.5-5.1); Sodium 140 mmol/L (136-145)
== END 2025-04-20 12:19 | disposition home or self-care (01) ==
LOC: LAB 12:21
PROVIDERS: PCP Family Medicine; Visit Provider Internal Medicine Cardiovascular Disease
DX: R60.0 Localized edema (principal)
CPT/HCPCS: 36415; 80048; 83880

== ENCOUNTER 2025-06-02 09:41 | Outpatient (OUT) | payer MEDICARE, SELFPAY ==
--- OUTSIDE RECORDS SUMMARY | 2025-06-02 09:46 | XMS_ITS | CCD ---
Author Organization [facility] Care Team Providers Care Medical Office Scheduler Name Role Phone DR TIAN KUHN Primary [...] Care Unavailable JR. BOO GEORGE C Attending Unavailbowen BOO JR., GEORGE C Referring Unavaila meagan Boo Jr., DO, George Primary Care Provider Rajeev Mak DO, George Primary Care Provider Tian Kuhn DO Primary Care Provider [phone] Kuhn Tian CIFUENTES Primary Care Provider [phone] REBECCA, MOHAN Admitting Unavailable REBECCAROBERTAN Attending Unavailable [...] Attending Unavailable KUHN TIAN Primary Care Unavailable BRODamianWELL, PAIGE M Attending Unavailable BROCWELL, PAIGE M Referring Unavailable KUHN, TIAN Primary Care Unavailable BRODamianWELL, PAIGE M Attending Unavailable BROCWELL, PAIGE M Referring Unavailable KUHN, TIAN Primary Care Unavailable ABHI BALTAZAR Attending Unavailable YAN, ERIK Referring Unavailable KUHN, TIAN Primary Care Unavailable TRUMAN BOO JR. Primary Care Unavailable YAN, ERIK Referring Unavailable YAN, ERIK Attending Unavailable ANDREW, TIAN Primary Care Unavailable YAN, ERIK Referring Unavailable YAN, ERIK Attending Unavailable ERIK HEREDIA Admitting Unavailable Tony Casas DO Attending Provider Unavailab ERIK Hutton Primary Care Physician Unavail able Tony Casas Attending Unavailable Tony Casas Admitting Unavailable Tian Kuhn MD Unavailable [phone] Cyn Garza Attending Unavailable LueCyn MKaden Attending Unavailable LueFabiolahy MKaden Attending Unavailable Lue Cyn M. Attending Unavailable LueCyn MKaden Attending Unavailable LueCyn MKaden Attending Unavailable LueCyn MKaden Attending Unavailable Lue Cyn MKaden Referring Unavailable GLORIA ALVAREZAR Referring Unavailable CEFERINO ALVAREZ Attending Unavailable Allergies Allergy ClassificationReported Allergen(s)Allergy TypeDate of OnsetReaction(s) Facility (5 sources)Morphine; 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: [MORPHINE]Drug Ijxkyfv49-57-0635[facility] (13 sources)oxyCODONE; 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: [OXYCODONE]Drug Pjtxelj24-40-0230Pycxwf and Vomiting, GI intoleranceProMedica Repository (13 sources)Morphine; 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: [morphine]Drug Lfboiwj47-03-4363Fveugk and Vomiting, Vomiting (disorder), [facility] intoleranceMem[facility] (13 sources)Penicillins; 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: [PENICILLINS]Propensity to adverse reactions to dmoy75-59-1228IcmyfMmuti [facility] (1 source)HYDROcodoneDrug Gqusjry13-49-5010ThhxdgmFTOQ Healthcare Medications Current Medications MedicationDrug Class(es)DatesSig (Normalized)Sig (Original)acetaminophen 325 mg oral tablet (16 sources)Start: 83-46-2027owid 2 tablets by mouth every four hours as needed Acetaminophen 325 MG tablet Take 2 tablets by mouth every 4 hours as needed for Mild Pain. 50 tablet 1 01/11/2024 ActiveStart: 01-11-2024 End: 90-19-0656czql 650 mg by mouth every four hours as needed End: 83-08-7772Hbatjapwsgybo (TYLENOL 8 HOUR ARTHRITIS PAIN PO) Take by mouth. 01/11/2024 Discontinued (Stop Taking at Discharge)Acetaminophen (TYLENOL 8 HOUR ARTHRITIS PAIN PO) Take by mouth. Activeacetaminophen 325 mg / HYDROcodone bitartrate 5 mg oral tablet (17 sources)Opioid AgonistStart: 07-30-6512kxhjlouhswvdr-hydrocodone 325 mg-5 mg oral tablet Refill(s) 0 Start Date: 07/28/24 Status: OrderedStart: 01-11-2024 End: 08-30-7646mbua 1-2 tablets by mouth every four hours as needed1-2 tablet, Oral, EVERY 4 HOURS NEEDED, Starting on Amggie 01/13/24 at 1029, Until Wed01/19/24 at 1423, Severe Pain, Post-op/Post-ProcStart: 01-11-2024 End: 51-43-5117ojpt 1 tablet by mouth once daily as neededhydroCODone- acetaminophen 5-325 MG tablet Indications: Acute postoperative pain of left hip Take 1-2 tablets by mouth every 6 hours as needed for up to 7 days. Do not take over 4000mg acetaminophen daily. 30 tablet 01/11/2024 Activeallopurinol 100 mg oral tablet (17 sources)Xanthine Oxidase InhibitorStart: 30-59-0607ndygbjoydjt 100 mg Tab Refills(s) 0 Start Date: 07/28/24 Status: OrderedStart: 01-12-2024 End: 22-84-4580kftvhoem 5 mg oral tablet (19 sources)Factor Xa InhibitorStart: 01-11-2024 End: 89-93-9097ymcc 2.5 mg by mouth every twelve hours in the morning2.5 mg, Oral, EVERY 12 HOURS, First dose on Wed01/12/24 at 0900, Until Discontinued, Start in AM day after surgery, Indications: Venous Thromboembolism, Post-op/Post-ProcStart: 10-02-2023 End: 37-96-6557Hvpxjui 5 mg oral tablet Refills(s) 0 Start Date: 07/28/24 Status: OrderedCholecalciferol (13 sources)Vitamin DStart: 71-98-8489vtbgynjcniayaoz Refills(s) 0 Start Date: 07/28/24 Status: OrderedCholecalciferol (Vitamin D-3) 25 MCG (1000 UT) capsule Take by mouth. Activeclarithromycin 500 mg oral tablet (2 sources)Macrolide AntimicrobialStart: 02-02-2024 End: 60-42-8761uxvl 1 tablet by mouth every hourclarithromycin 500 MG tablet Take 1 tab by mouth 1 hour prior to dental procedures 2 tablet 1 02/02/2024 02/01/2025 ActiveDocusate (16 sources)Start: 11-28-4500eoazxbvs Refills(s) 0 Start Date: 07/28/24 Status: OrderedStart: 01-11-2024 End: 96-21-9847isuc 1 capsule by mouth twice dailyDocusate 100 MG capsule Take 1 capsule by mouth 2 times daily. 60 capsule 01/11/2024 Activeferrous sulfate (10 sources)Start: 88-87-7016pwzseeg sulfate Oral, Refills(s) 0 Start Date: 07/28/24 Status: OrderedStart: 82-57-0692ijpr 1 tablet by mouth once dailyferrous sulfate 325 (65 Fe) MG tablet Take 1 tablet by mouth daily. 90 tablet 02/11/2024 ActiveStart: 01-21-2024 End: 64-25-7393iiyvrpwps oxide 400 mg oral tablet (14 sources)Start: 67-73-6010rvmktybsh oxide 400 mg Tab Refills(s) 0 Start Date: 07/28/24 Status: OrderedStart: 55-65-9576iiaufyxai oxide (Mag-Ox) 400 (240 Mg) MG tablet 10/02/2023 ActiveStart: 80-37-7168qctm 1 tablet by mouth twice daily magnesium oxide 400 (240 Mg) MG Take 1 tablet by mouth 2 times daily. 10/02/2023 Mbkwig98 hr mirabegron 50 mg extended release oral tablet (1 source)beta3-Adrenergic AgonistStart: 07-28-2024 End: 56-51-5526cncu 1 tablet by mouth once dailymirabegron 50 mg oral tablet, extended release 50 mg = 1 tab(s), Oral, Daily, X 30 day(s), # 30 tab(s), Refills(s) 11, Pharmacy: [facility]/pharmacy #[id number], 158, cm, 07/28/24 10:01:00 EST, Height/Length Dosing, 96, kg, 07/28/24 10:01:00 EST, Weight Dosing Start Date: 07/28/24 Stop Date: 07/23/25 Status: OrderedMultiple Vitamin (multivitamin) tablet (9 sources)take 1 tablet by mouth once dailyMultiple Vitamin (multivitamin) tablet Take 1 tablet by mouth daily. Suspendedtake 1 tablet by mouth once daily Multiple Vitamin (multivitamin) tablet Take 1 tablet by mouth daily. Active omeprazole 20 mg delayed release oral capsule (14 sources)Proton Pump InhibitorStart: 97-95-5768wickkihmgs 20 mg Cap-DR Refills(s) 0 Start Date: 07/28/24 Status: Vtzlrjr04 hr tolterodine tartrate 4 mg extended release oral capsule (17 sources)Cholinergic Muscarinic AntagonistStart: 01-12-2024 End: 16-85-7942Rubal: 10-02-2023 End: 56-91-2932cvpl 1 capsule by mouth once dailytolterodine 4 MG Cap SR 24HR Take 1 capsule by mouth daily. 30 capsule 02/10/2024 ActiveStart: 10-02-2023 tolterodine 4 MG Cap SR 24HR 1 capsule. 10/02/2023 Activevitamin b12 1 mg extended release oral tablet (13 sources)Vitamin D80Ylsbh: 27-88-8012hmwm 1 tablet by mouth once daily cyanocobalamin 1000 mcg oral tablet, extended release 1,000 mcg = 1 tab(s), Oral, Daily, # 60 tab(s), Refills(s) 0 Start Date: 07/28/24 Status: Ordered cyanocobalamin 1000 MCG tablet Take 5 tablets by mouth. Active Completed/Discontinued Medications MedicationDrug Class(es)DatesSig (Normalized)Sig (Original)betamethasone 0.5 mg/ml / clotrimazole 10 mg/ml topical cream (2 sources)Azole Antifungal, CorticosteroidStart: 02-09-2024 End: 85-70-5470xlfxdqfntwqytxz animalis [id number] unt / lactobacillus acidophilus [id number] unt oral capsule (2 sources)Start: 01-22-2024 End: 85-27-0417dksfcujws 10 mg rectal suppository (3 sources)Stimulant LaxativeStart: 01-11-2024 End: 08-73-3287tpMCBufeq 2000 mg injection (1 source)Cephalosporin AntibacterialStart: 01-11-2024 End: 06-25-9978rpfs 2 g intravenously every eight hours2 g, Intravenous, Administer over 30 Minutes, EVERY 8 HOURS NON-STANDARD, 19 doses, First dose on Wed01/11/24 at 2300, Last dose on Wed01/17/24 at 2300, Post-op/Post-Proccelecoxib 200 mg oral capsule (1 source)Nonsteroidal Anti-inflammatory DrugStart: 01-11-2024 End: 64-27-1043qibf 1 dose by mouth every two zpaet181 mg, Oral, ONCE DIRECTED, 1 dose, Starting on Wed01/11/24 at 1141, Until Wed01/11/24 at 1209,See admin instructions, Administer 2 hours preop., Pre-op/Pre-Proccephalexin 500 mg oral capsule (1 source)Cephalosporin AntibacterialStart: 01-11-2024 End: 46-79-8452gxxh 1 capsule by mouth every eight hourscephALEXin 500 MG capsule Take 1 capsule by mouth every 8 hours for 7 days. 21 capsule 01/11/2024 01/18/2024 Expiredchlorhexidine gluconate 40 mg/ml medicated liquid soap (1 source)Start: 12-17-2023 End: 23-89-2162Usziwrzxqscof Gluconate 4 % Solution Indications: Arthralgia, unspecified joint Apply 1 Applicationtopically daily as needed. From the neck down for 5 days 236 mL 12/17/2023 01/19/2024 Discontinued (Stop Taking at Discharge)cyclobenzaprine hydrochloride 10 mg oral tablet (5 sources)Muscle RelaxantStart: 01-12-2024 End: 59-27-9610zzluljquhjciw phosphate 10 mg/ml injectable solution (1 source)CorticosteroidStart: 01-12-2024 End: 83-95-1186feuv 10 mg intravenously every twenty-four hours10 mg, Intravenous, EVERY 24 HOURS, 1 dose, First dose on Wed01/12/24 at 1700, 24 hours post op, Post-op/Post-ProcStart: 01-12-2024 End: 39-58-8465adnf 10 mg intravenously every twenty-four hours10 mg, Intravenous, EVERY 24 HOURS, 1 dose, First dose on Wed01/12/24 at 1700, 24 hours post op, Post-op/Post-Procdocusate sodium 50 mg / sennosides, care home 8.6 mg oral tablet (5 sources)Start: 01-19-2024 End: 56-09-3660Qozbg: 01-11-2024 End: 20-61-0661cvho 2 tablets by mouth twice daily as needed for constipation2 tablet, Oral, 2 TIMES DAILY NEEDED, Starting on Wed01/11/24 at 1831, Until Wed01/19/24 at 1423,constipation, Post-op/Post-Proc1 ml HYDROmorphone hydrochloride 1 mg/ml cartridge (1 source)Opioid AgonistStart: 01-11-2024 End: 00-72-5579qrqy 0.5 mg intravenously every four hours as needed0.5 mg, Intravenous, EVERY 4 HOURS NEEDED, Starting on Wed01/11/24 at 1831, Until Wed01/19/24 at 1423, Severe Pain, Post-op/Post-Proclactulose 667 mg/ml oral solution (2 sources)Osmotic LaxativeStart: 01-21-2024 End: 33-43-1404iurvzahpp 600 mg oral tablet (2 sources)Oxazolidinone AntibacterialStart: 01-21-2024 End: 28-41-9010rgledxnmxn 5 mg oral tablet (2 sources)Angiotensin Converting Enzyme InhibitorStart: 01-30-2024 End: 09-07-6112vcmmnhdhnv 10 mg oral tablet (3 sources)Start: 01-19-2024 End: 72-39-8656syayeeukr 0.02 mg/mg topical ointment (5 sources)RNA Synthetase Inhibitor AntibacterialStart: 01-23-2024 End: 39-03-8824Unuek: 12-17-2023 End: 83-32-9560vtxkx 15 g nasal route twice dailyMupirocin 2 % ointment Indications: Arthralgia, unspecified joint Each nostril BID x 5 days 15 g 01/19/2024 Discontinued (Stop Taking at Discharge)nystatin 433138 unt/ml topical cream (8 sources)Polyene AntifungalStart: 02-05-2024 End: 58-28-3921Talgg: 01-31-2024 End: 80-21-2933Irrwa: 01-26-2024 End: 19-39-5117fotdttvcana 4 mg disintegrating oral tablet (5 sources)Serotonin-3 Receptor AntagonistStart: 02-05-2024 End: 52-41-2817xrrz 4 mg by mouth every four hours as neededStart: 01-23-2024 End: 36-81-2284ysjs 4 mg by mouth every four hours as neededStart: 01-11-2024 End: 64-54-1270mdpi 4 mg intravenously every four hours as needed4 mg, Intravenous, EVERY 4 HOURS NEEDED, Starting on Wed01/11/24 at 1831, Until Wed01/19/24 at 1423, Nausea / Vomiting, Post-op/Post-Procpantoprazole 40 mg delayed release oral tablet (5 sources)Proton Pump InhibitorStart: 01-12-2024 End: 24-20-1391fizhzizmuxvw glycol 3350 97324 mg powder for oral solution (6 sources)Osmotic LaxativeStart: 01-21-2024 End: 10-57-0560epyaeqsomxusmasrj potassium chloride 20 meq extended release oral tablet (1 source)Start: 01-17-2024 End: 53-08-275888 mEq, Oral, ONCE, 1 dose, On Wed01/17/24 at 1800, Swallow tablets whole; do not crush, chew, or suck on tablet. Tablet may also be broken in half and each half swallowed separately.povidone-iodine 100 mg/ml medicated pad (2 sources)AntisepticStart: 02-03-2024 End: 49-02-6007UWJrhcakvzn (NAROPIN) 1 % 400 mg, EPINEPHrine PF (ADRENALIN) 1 MG/ML 1 mg, Ketorolac (TORADOL) 30 MG/ML 30 mg, cloNIDine 100 MCG/ML 206 mcg, Sodium chloride 0.9% 45 mL in viaflex container 1 Each 89.06 mL (total volume) (1 source)Start: 01-11-2024 End: 11-77-0419prqi 1 dose intravenously onceIntra-articular, INTRA-OP ONCE, 1 dose, Starting on Wed01/11/24 at 1428, Until Wed01/11/24 at 1611,89.06 mL, To be mixed by pharmacy NOT for IV use, Intra-op/Intra-Gswr7735 ml sodium chloride 9 mg/ml injection (1 source)Start: 01-11-2024 End: 97-97-2600Twqtjremebl, at 75 mL/hr, CONTINUOUS, Starting on Wed01/11/24 at 1845, Until Wed01/19/24 at 1423, Convert IV to PRN adapter post op day 1 if adequate oral intake, Post-op/Post-Procsulfamethoxazole 800 mg / trimethoprim 160 mg oral tablet (2 sources)Dihydrofolate Reductase Inhibitor Antibacterial, Sulfonamide AntimicrobialStart: 01-27-2024 End: 80-01-9693afkTNBjb hydrochloride 50 mg oral tablet (1 source)Opioid AgonistStart: 01-12-2024 End: 96-14-9743bzbf 1 tablet by mouth every six hours as mg, Oral, EVERY 6 HOURS NEEDED, Starting on Wed01/12/24 at 2208, Until Wed01/19/24 at 1423, Moderate Paintranexamic acid 650 mg oral tablet (1 source)Antifibrinolytic AgentStart: 01-11-2024 End: 82-63-1974bxbh 1 dose by mouth every two hours1,950 mg, Oral, ONCE DIRECTED, 1 dose, Starting on Wed01/11/24 at 1141, Until Wed01/11/24 at 1209, See admin instructions, Administer 2 hours preop, Pre-op/Pre-Proczolpidem tartrate 5 mg oral tablet (3 sources)gamma-Aminobutyric Acid-ergic AgonistStart: 01-11-2024 End: 02-11-2024 (5 sources)Start: 01-20-2024 End: 02-11-2024 (2 sources)Start: 02-09-2024 End: 02-11-2024 Problems Active Problems Problem ClassificationProblemDateDocumented DateEpisodic/ChronicAllergic reactions (1 source)Allergy status to narcotic agent status; 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: [ALLERGY STATUS NARCOTIC AGENT]Onset: 33-80-5946BzurdoqwWxuboe; peripheral; and visceral artery aneurysms (20 sources)Aneurysm of ascending aorta; 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: [Aneurysm of ascending aorta without rupture]Onset: 838490-87-5750BacslvoQmxiznfr of urinary tract (3 sources)Personal history of urinary calculi; 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: [Kidney stone] Onset: 80-57-3199NpoxkfqqSktphfttfw disorders (9 sources)Gastroesophageal reflux disease without esophagitis; 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: [Gastro-esophageal reflux disease without esophagitis]Onset: 01-17-2024 80-92-5790YlirqbmAqtqhqzm of upper limb (18 sources)Closed fracture of hand; 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: [Unspecified fracture of unspecified wrist and hand, initialencounter for closed fracture]Onset: 211714-91-1730NmpzoimsLquilvxfgpalb symptoms and ill-defined conditions (11 sources)Mixed urinary incontinence; 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: [Mixed incontinence]Onset: 713032-52-9263SwiuglkSeai and other crystal arthropathies (11 sources)Gout, unspecified; 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: [Gout]Onset: ChronicMalaise and fatigue (1 source)Other fatigue; 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: [Other fatigue]Onset: 82-94-7789Pmgdqyxi Osteoarthritis (14 sources)Unspecified osteoarthritis, unspecified site; 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: [Osteoarthritis of left hip joint]Onset: 954782-30-5104QjsjrccRfvic aftercare (1 source)Other mcc (current) drug therapy; 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: [OTH MCFP CURRENT DRUG THERAPY]Onset: 06-97-0945UfytbhmiKenmu aftercare (1 source)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); 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: [MCFP USE NSAID]Onset: 75-24-2548QpvtkihuShfzf aftercare (1 source)Long-term current use of anticoagulant; 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: [long-term (current) use of anticoagulants]Onset: 30-07-6748RyatxzkjZbdoa and ill-defined heart disease (1 source)Heart disease, unspecified; 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: [HEART DISEASE UNSPECIFIED] Onset: 83-55-7850CvkxwdoBtfkw connective tissue disease (1 source)Presence of artificial knee joint, bilateral; 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: [PRESENCE ARTIFICIAL KNEE JNT BILAT]Onset: 86-18-5554ZyogcixJgkyi connective tissue disease (1 source)Presence of unspecified artificial hip joint; 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: [PRESENCE UNS ARTIFICIAL HIP JOINT]Onset: 97-85-9774BdhgcgcStmeb connective tissue disease (20 sources)History of total hip arthroplasty; 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: [Presence of left artificial hip joint]Onset: 793421-77-9559KyijmokXdgie connective tissue disease (4 sources)Presence of left artificial hip joint; 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: [Presence of left artificial hip joint]Onset: 95-36-2916JahpkjkOcylx diseases of kidney and ureters (1 source)Urinary tract obstruction; 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: [Hydronephrosis with renal and ureteral calculous obstruction]Onset: 87-41-2910LsuuumsxVxmvc nervous system disorders (1 source)Other chronic pain; 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: [Other chronic pain]Onset: 11-60-2713RfjqumhHypnv nervous system disorders (9 sources)Unsteady when standing; 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: [Unsteadiness on feet]Onset: 279850-38-4342DdeiqnqrYeimz nervous system disorders (2 sources)Other acute postprocedural pain; 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: [Other acute postprocedural pain]Onset: 03-36-5652ZzyosyixImxoq non-traumatic joint disorders (1 source)Pain in unspecified knee; 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: [PAIN IN UNSPECIFIED KNEE] Onset: 22-97-7782PjytzxvhYcgab non-traumatic joint disorders (1 source)Pain in left knee; 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: [Pain in left knee]Onset: 09-18-2023 EpisodicOther non-traumatic joint disorders (2 sources)Hip pain; 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: [Pain in left hip]76-48-2630QazpnxwxPihwa non-traumatic joint disorders (1 source)Joint pain; 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: [Pain in other specified joint]01-11-2024 EpisodicOther non-traumatic joint disorders (2 sources)Pain in left hip; 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: [Pain in left hip]Onset: 01-11-2024 EpisodicOther nutritional; endocrine; and metabolic disorders (1 source)Hypomagnesemia; 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: [Hypomagnesemia]Onset: 67-09-2377Rxquxut Other nutritional; endocrine; and metabolic disorders (9 sources)Hypomagnesemia; 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: [Hypomagnesemia]Onset: 01-17-2024 28-54-9856LhwgkurKxlmz nutritional; endocrine; and metabolic disorders (9 sources)Obesity caused by energy imbalance; 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: [Morbid (severe) obesity due to excess calories]Onset: 019743-32-4118KivajgyXabfs nutritional; endocrine; and metabolic disorders (9 sources)Disorder of plasma protein metabolism; 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: [Other disorders of plasma-protein metabolism,not elsewhere classified]Onset: 01-17-2024 17-71-2995ZpixekdHceep screening for suspected conditions (not mental disorders or infectious disease) (2 sources)Abnormal findings on diagnostic imaging of heart and coronary circulation; 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: [Abnormal findings on diagnostic imaging of heart and coronary circulation]Onset: 76-53-1016EgsvxtagEytphetzc heart disease (12 sources)Other pulmonary embolism without acute cor pulmonale; 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: [Personal history of pulmonary embolism]Onset: 69-91-2376AhqqayxbOfcyoxuh codes; unclassified (1 source)Acquired absence of kidney; 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: [ACQUIRED ABSENCE OF KIDNEY] Onset: 89-14-4485OuvgclkaNfhgzroj codes; unclassified (1 source)Acquired absence of both cervix and uterus; 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: [ACQUIRED ABSENCE BOTH CERVIX AND UTERUS]Onset: 15-60-5355AxohdlwhZkarrlmt codes; unclassified (1 source)Acquired absence of other specified parts of digestive tract; 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: [ACQ ABSENCE OTH PART DIGESTV TRACT]Onset: 25-86-1167Yegrtrbq Residual codes; unclassified (11 sources)Absent kidney; 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: [Acquired absence of kidney]Onset: 732272-53-3963EvybeqswGkhslzpi codes; unclassified (8 sources)History of nephrectomy; 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: [Acquired absence of kidney] Onset: 188882-50-4058LidxasleGsvrdvkv codes; unclassified (2 sources)Pain; 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: [Pain]Onset: 60-28-9833YshgzsslDjbyegee codes; unclassified (2 sources)Localized edema; 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: [Localized edema]Onset: 10-03-2025 EpisodicRespiratory failure; insufficiency; arrest (adult) (1 source)Acute respiratory failure, unspecified whether with hypoxia or hypercapnia; 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: [AC RESP FAIL UNS HYPOX/HYPERCAPNIA]Onset: 11-19-2022 EpisodicSpondylosis; intervertebral disc disorders; other back problems (9 sources)Lumbar spondylosis; 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: [Spondylosis without myelopathy or radiculopathy, lumbar region]Onset: 483753-57-9139QjwmlymSrtjcdzefny; intervertebral disc disorders; other back problems (1 source)Dorsalgia, unspecified; 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: [DORSALGIA UNSPECIFIED]Onset: 21-84-4587OcvbjxylZlvobpqphtgm (1 source)Single subsegmental pulmonary embolism without acute cor pulmonale; 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: [SNGL SBSG PULM EMB WO AC COR PLMNAL]Onset: 45-17-3122Chvtjiscssxg (1 source)ANEURYSM ASCEND AORTA W/O RUPTURE; 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: [ANEURYSM ASCEND AORTA W/O RUPTURE]Onset: 87-32-5495Iowbpedjhpwc (1 source)CONTACT W/AND (SUSP) EXPOS COVID-19; 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: [CONTACT W/AND (SUSP) EXPOS COVID-19]Onset: 94-66-9588Bbsacgmunkbk (1 source)Pain in other specified joint; 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: [Pain in other specified joint]Onset: 90-33-7829Ajpwjpchqpwy (1 source)Drug therapy snaddmg21-29-5456Qnawcqxhwcrl (1 source)Obstructive eouzlefyxyuwmh19-23-8698 Past or Other Problems Problem ClassificationProblemDateDocumented DateEpisodic/ChronicDiabetes mellitus without complication (3 sources)Prediabetes; 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: [Other abnormal glucose]Onset: 09-18-2023 EpisodicUnclassified (1 source)Onset: 293378-20-2619Cvrdlhdfdjbm (1 source)Pain in other specified joint; 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: [Pain in other specified joint]Onset: 01-11-2024 Results Test NameValueInterpretationReference RdcctDvvwylka97hv 27-98-140737Yscsx to patient. Advised patient of Dr. Alvarez's recommendation. Patient verbalized understanding. Message sent to [facility] to reschedule patient for her cardiac cath Script for Imdur sent to [facility] adrianNormalUniversity [facility]36on [phone] call from patient. Geovany states she had to cancel her cath for last week due to not having any family in town to take her. Patient states she had a spell a couple of days ago of jaw/chest/neck that lasted about 10 minutes and resolved with rest. Informed patient to call the laborer laboratory to reschedule and to go to the ER if she has another spell. Patient verbalized understanding and agreed with plan of careNormalUniversity The Bellevue HospitalTelephoneon 05-25-2025 [id number] Cuate Goodman 1940 F Date Provider Department Center 05/25/2025 [id number] PASCUAL YUNIOR Romo Family History Problem Relation Age of Onset Lung cancer Mother Heart disease Father Other Father Prostate cancer Father Family Status - Relation Status Age at Mother Father DeceasedC[facility]30on Lexiscan stress test Patient information sheet explained, questions answered and signed. Patient's family/significant other states understanding of testing procedure Doctor consulted--NA Treatment/Decision tree utilized: CHURCH and chest pain Pt instructed to call for F/U appointment Pt tolerated lexiscan stess test fair Pt c/o chest heaviness 6/10 and shortness of breath during infusion, all symptoms resolved on own into recovery No acute ST or T wave changes noted Occasional PVC's noted and resolved on own EKG returned to normal in recovery Pt left stress lab asymptomatic and hemodynamically stable Full final report from seaman to follow. Olamide Hayes RN [facility] Cardiovascular Stress LabNormalUniversity The Bellevue HospitalOrders Onlyon 30-12-3730Dcgrbv [id number] Cuate Goodman 1940 F Date Provider Department Center 04/23/2025 [id number], JOS YUNIOR Romo Family History Problem Relation Age of Onset Lung cancer Mother Heart disease Father Other Father Prostate cancer Father Family Status - Relation Status Age at Mother Father DeceasedCincinnati [facility] CenterOffice Visiton 71-80-1053Dlcstm-up [id number] Cuate Goodman 1940 F Date Provider Department Center 04/20/2025 [id number] SANTO Family History Problem Relation Age of Onset Lung cancer Mother Heart disease Father Other Father Prostate cancer Father Family Status - Relation Status Age at Mother Father Level of Service:01185 ID OFFICE/OUTPATIENT ESTABLISHED MOD MDM 30 MIN Reason for Visit and Comments: Follow-up [607794] - Patient is here today for a follow up, for an abnormal Echo Aneurysm of ascending aorta without rupture [Other] PE [Other]NormalMount Carmel [facility] Onlyon 04-20-2025 Orders [id number] Cuate Goodman 1940 Date [facility] Department [place] 04/20/2025 CHRISTOPHER ZHOU YUNIOR Romo Family History Problem Relation Age of Onset Lung cancer Mother Heart disease Father Other Father Prostate cancer Father Family Status - Relation Status Age at Mother Father DeceasedNoTwin City HospitalOrders [id number] Cuate Goodman 1940 Date Provider Department [place] 04/20/2025 DAVION TAPIA Family History Problem Relation Age of Onset Lung cancer Mother Heart disease Father Other Father Prostate cancer Father Family Status - Relation Status Age at Mother Father DeceasedNormHarrison Community HospitalniOhioHealthTelephoneon 04-20-2025 [id number] Cuate Goodman 1940 Date Provider Department [place] 04/20/2025 DAVION TAPIA Family History Problem Relation Age of Onset Lung cancer Mother Heart disease Father Other Father Prostate cancer Father Family Status - Relation Status Age at Mother Father DeceasedCincinnati VA Medical Center36on [id number] reviewed patient echo performed 02/17/2024. It was ordered by our nurse when the patient called requesting to repeat an annual echo to follow-up on ascending aortic aneurysm. As echo showed new mild reduction in left ventricular systolic function was new wall motion abnormalities not noted on prior echoes. The patient will be called to be scheduled for soon follow-up appointment to be evaluatedNormalUniversity of Perez Medical CenterResults Follow-Upon 03-01-2025 Results Follow-[id number] Cuate Goodman 1940 F Date Provider Department Center 03/01/2025 CEFERINO TOSCANO [facility] Family History Problem Relation Age of Onset Lung cancer Mother Heart disease Father Other Father Prostate cancer Father Family Status - Relation Status Age at Mother FatherNormalUniversthe surgical hospital at [facility] KaufmanOrders Onlyon [id number] [id number] Cuate Goodman 1940 F Date Provider Department Center 02/19/2025 [id number], HISTORICAL CARD [facility] Family History Problem Relation Age of Onset Lung cancer Mother Heart disease Father Other Father Prostate cancer Father Family Status - Relation Status Age at Mother FatherNormalUBluffton HospitalResults Follow-Upon 02-18-2025 Results Follow-[id number] Cuate Goodman 1940 F Date Provider Department Center 02/18/2025 CEFERINO TOSCANO [facility] Family History Problem Relation Age of Onset Lung cancer Mother Heart disease Father Other Father Prostate cancer Father Family Status - Relation Status Age at Mother Father DeceasedNormalUBluffton HospitalOrders Onlyon 02-16-2025 Orders [id number] Cuate Goodman 1940 F Date Provider Department Center 02/16/2025 [id number], HISTORICAL BH CARD [facility] Family History Problem Relation Age of Onset Lung cancer Mother Heart disease Father Other Father Prostate cancer Father Family Status - Relation Status Age at Mother FatherNormalUniOhioHealthALL CBC WITH AUTO DIFFon 10-56-1510GLHBARTHC ABSOLUTE BJUK1UCCU HealthcareBasophils/100 WBC (Bld)0.6 %0.2 - 2.0 %NOMS HealthcareEosinophils/100 WBC (Bld)0.8 %Low0.9 - 7.0 %NOMS HealthcareErythrocyte distribution width (RBC) [Ratio]14 %11.0 - 15.0 %NOMS HealthcareHematocrit (Bld) [Volume fraction]38.3 %36.0 - 48.0 %[facility] Hemoglobin (Bld) [Mass/Vol]12.1 g/dL12.0 - 16.0 g/dLFulton State HospitalIMMATURE GRANULOCYTES ABS AUTO0.02NOMercy McCune-Brooks Hospitalmature granulocytes/100 WBC (Bld)0.3 % 0.0 - 0.5 %[facility] HospitalInterpretation and review of laboratory results AbnormalFulton State HospitalLYMPHOCYTES ABSOLUTE AUTO1.5[facility] Lymphocytes/100 WBC (Bld)23 %20.5 - 60.0 %[facility]right Memorial HospitalH (RBC) [Entitic mass]30.9 pg26.7 - 34.0 pgWright Memorial HospitalHC (RBC) [Mass/Vol]31.6 g/dL29.9 - 35.2 g/dLWright Memorial HospitalV (RBC) [Entitic vol]98 fL81.0 - 99.0 fLFulton State HospitalMONOCYTES ABSOLUTE AUTO0.6NOProgress West HospitalMonocytes/100 WBC (Bld)9.9 % 1.7 - 12.0 %[facility] HospitalNEUTROPHILS ABSOLUTE AUTO4.2NFreeman Heart Institute Neutrophils/100 WBC (Bld)65.4 %43.0 - 75.0 %[facility] HospitalPlatelet mean volume (Bld) [Entitic vol]10 fL9.5 - 13.5 fLFulton State HospitalTBH EO #0.1[facility] Healthcare TBH [id number] [facility] RBC3.91LowNOMS Kettering Memorial HospitalTB WBC6.4NOProgress West Hospital CLINISYNCNONY HealthcareAmbulatory Visit Summaryon [id number] Visit SummaryAmbulatory Visit Summary GOODMAN, CUATE M :1940 Visit Date:07/28/2024 Ambulatory Visit Instructions Your Diagnosis Ureteral stone with hydronephrosis Urge incontinence Kidney stone Solitary kidney, acquired Anticoagulated Your Care Team Attending Physician - Cyn Garza MD Primary Care Physician - ERIK ADAME DO This Is Your Medications List mirabegron (mirabegron 50 mg oral tablet, extended release) Contact prescribing physician if questions or concerns acetaminophen-hydrocodone (acetaminophen-hydrocodone 325 mg-5 mg oral tablet) allopurinol (allopurinol [...] Following Appointments Follow Up with Greg AL, STEFFI Castellanos, URO When: Where: Medications What How Much When Instructions New mirabegron (mirabegron 50 mg oral tablet, extended release) 1 Tablets By Mouth Every day Duration: 30 Days Refills: 11 Pickup at [facility]/pharmacy #[id number] Unchanged acetaminophen-hydrocodone (acetaminophen-hydrocodone 325 mg-5 mg oral tablet) Contact prescribing physician if questions or concerns Unchanged allopurinol (allopurinol 100 mg Tab) Contact prescribing physician if questions or concerns Unchanged apixaban (Eliquis 5 mg oral tablet) Contact prescribing physician if questions or concerns Unchanged cholecalciferol Contact prescribing physician if questions or concerns Unchanged cyanocobalamin (cyanocobalamin 1000 mcg oral tablet, extended release) 1 Tablets By MouthEvery day Contact prescribing physician if questions or concerns Unchanged docusate Contact prescribing physician if questions or concerns Unchanged ferrous sulfate By Mouth Contact prescribing physician if questions or concerns Unchanged magnesium oxide (magnesium oxide 400 mg Tab) Contact prescribing physician if questions or concerns Unchanged omeprazole (omeprazole 20 mg Cap-DR) Contact prescribing physician if questions or concerns Pharmacy Information [facility]/pharmacy #[id number]: [address], [place] [id number] [phone] What When Comments Stop Taking tolterodine (tolterodine [...] these instructions at home: Medicines ??? Take pdsp-kdu-dgeeicb and prescription medicines only as told by [...] keep your pee pale yellow. ? Take kimj-khw-jbotvhi or prescription medicines. ? Eat foods that [...] heart or kidney diseas (more content not included)...NormalFisher Brook Lane Psychiatric CenterUrology Office/Clinic Noteon [id number] Office/Clinic NoteUrology Office/Clinic Note Chief Complaint 1 WEEK F/U HPI Staff 83 year old female presents for week f/u for [facility] INPT s/p cytoscopy 07/18/24 and discuss stone [...] information and history for this patient from [facility]. I have reviewed and verified the staff [...] calculous obstruction) CT AP wo con 07/18/24 [facility] - Obstructing 8.3 x 7.2 mm stone within the proximal L ureter, just distal to L UPJ with moderate L pelvocaliectasis. 5.9 mm stone L renal pelvis. Moderate cortical scarringalong contour of L kidney. No mass lesion. [...] recommended since pt AC and greater risks (likehematoma) given pt has solitary kidney. Pt agreeable [...] to the ureter (the tube which connects thekidney to the bladder), injury to the kidney scarring of the ureter, and need for repeat procedures, among others. Full informed consent has been obtained. Will order General anesthesia. 2. Urge incontinence (N39.41: Urge incontinence) Small bladder noted on scope/stent placement. Contributes to overactivity. Pt wears pad. Relaxes tovoid since nephrectomy. Taking Tolterodine 4 mg ER in addition to Vesicare 10 mg qd. Severe dry mouth. Bothersome. Offered to try other med with less SEs. Pt elects to try. -Reassess urinary sxs and PVR after stone procedure/stent removal. -Stop both OAB meds and start Myrbetriq 50 mg qd. SEs discussed. Generic requested. Sent to [facility]. Can add one anticholinergic if sxs not satisfactorily controlled by beta-3 alone. -PVR in future after stent out, consider botox 3. Kidney stone (N20.0: Calculus of kidney) CT AP wo con 07/18/24 [facility] - 5.9 mm stone L renal pelvis. -Will address at time of ureteral stone above Ordered: Urnls Dip Stick Auto w/o Microscopy POC 49041 4. 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 CT AP wo con 07/18/24 [facility] - Absence of R kidney. Moderate cortical scarring along contour of L kidney. No mass lesion. -Counseled on risk of renal failure with blockage of remaining kidney. Will treat kidney stones as they appear to prevent renal failure 5. 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 [address] PATHOLOGIST HR ADVISOR MERLE TAO M.D.[facility] Physician GroupComment on above: Performed By: #### CUU #### [place] [address] USABMP FASTINGon 87-71-9149Eexmj gap [Moles/Vol]3 mmol/LLow 8-16[facility] Callery HospitalCalcium [Mass/Vol]9.1 mg/dLNormal8.4-10.2[facility] Call[facility] HospitalChloride [Moles/Vol]104 mmol/AJdylgf03-353Yicgr Callery HospitalComment on above:Result Comment: Please note: Triglyceride levels of 600mg/dL or higher may positively bias chlorideresults by approximately 2.1 mmolCO2 [Moles/Vol]28 mmol/UQeanab46-59Zfdwe Callery HospitalCreatinine [Mass/Vol]0.80 mg/dLNormal 0.7-1.2[facility] HospitalEST. GFR, Wzeaghzz04 ml/min/1.73sq.mNormal [facility] Psychiatric CenterEST. GFR,Non Tjarnndl65 ml/min/1.73sq.mNormalAlta Bates Summit Medical Center HospitalGFR InformationAverage GFR for 70+ years old = 75.NormalAvita Hutchings Psychiatric CenterComment on above:Result Comment: Chronic Kidney disease, GFR = <60. Kidney failure, GFR = <15. The GFR estimate is not adjusted for extreme body surface area or acute process, nor has it been validated for women or ethnic groups other than and .Glucose [Mass/Vol]98 mg/sJOauggh35-042KdyrjSaint Joseph Memorial HospitalComment on above:Result Comment: NORMAL <100 mg/dL PREDIABETES 101-126 mg/dL DIABETES 126 mg/dL or higherPotassium [Moles/Vol]4.5 mmol/LNormal3.5-5.1AHodgeman County Health Centerodium [Moles/Vol]135 mmol/NPsj241-410PhommSaint Joseph Memorial HospitalUrea nitrogen [Mass/Vol]16 mg/dLNormal7-20[facility] REACTIVE PROTEINon 18-41-5214WMG [Mass/Vol]22.8 mg/LHigh0-10AKingman Community HospitalCBCon 02-11-2024 ABSOLUTE BAS0.0 10*3/uLNormal0.0-0.2AKingman Community HospitalABSOLUTE EOS0.2 10*3/uLNormal0.0-0.7AKingman Community HospitalABSOLUTE NEUTROPHIL COUNT2.8 10*3/uL Normal1.4-6.5AKingman Community HospitalBasophils/100 WBC (Bld)1.0 %Normal0.0-2.0 [facility] HospitalDTYPEAUTO DIFFNormalAThe Valley Hospital HospitalEosinophils/100 WBC (Bld)4.1 %Normal0.0-11.0[facility] HospitalLymphocytes (Bld) [#/Vol]1.3 10*3/uLNormal1.2-3.4AKingman Community HospitalLymphocytes/100 WBC (Bld)25.8 %Normal 20.0-55.0[facility] HospitalMonocytes (Bld) [#/Vol]0.7 10*3/uLNormal0.0-0.7 [facility] HospitalMonocytes/100 WBC (Bld)13.4 %High0.0-10.0[facility] HospitalNeutrophils/100 WBC (Bld)55.7 %Jnqabi12.0-75.0[facility] Erythrocyte distribution width (RBC) [Ratio]15.2 %High11.5-14.5AKingman Community HospitalHematocrit (Bld) [Volume fraction]31.9 %Low36.0-48.0[facility] HospitalHemoglobin (Bld) [Mass/Vol]10.7 g/dLLow12.0-16.0[facility] MCH (RBC) [Entitic mass]32.2 lrEahnav16.0-35.0[facility]tering [facility] Greene MemorialHC (RBC) [Mass/Vol]33.6 g/mWPydgrt29.0-37.0[facility] HospitalMCV (RBC) [Entitic vol] 96.1 aGKdsxez24.0-100.0[facility] HospitalPlatelet mean volume (Bld) [Entitic vol]7.2 fLLow7.4-11.0[facility] HospitalPlatelets (Bld) [#/Vol]368 10*3/uL Dwvhnz942-941QztrrSaint Joseph Memorial HospitalRBC (Bld) [#/Vol]3.32 10*6/uLLow4.0-5.4AKingman Community HospitalWBC (Bld) [#/Vol]5.0 10*3/uLNormal3.6-11.0[facility] Laboratory - Chemistry and Chemistry - challengeon 40-63-4755Airwg gap [Moles/Vol]3 mmol/LLowAvi Health SystemCalcium [Mass/Vol]9.1 mg/dLBradley Hospital Health SystemChloride [Moles/Vol]104 mmol/LAvita Health SystemCO2 [Moles/Vol]28 mmol/L [facility] SystemCreatinine [Mass/Vol]0.80 mg/dLBradley Hospital Health SystemCRP [Mass/Vol]22.8 mg/LHigh0 - 10 MG/LAvita Health SystemGFR/1.73 sq M.predicted among blacks MDRD (S/P/Bld) [Vol rate/Area]89 mL/min/{1.73_m2}ml/min/1.73sq.m [facility] WestGFR/1.73 sq M.predicted among non-blacks MDRD (S/P/Bld) [Vol rate/Area]73 mL/min/{1.73_m2}ml/min/1.73sq.mAUK HealthcareGlucose post fast [Mass/Vol]98 mg/dLRegency Hospital Cleveland WestPotassium [Moles/Vol]4.5 mmol/[facility] SystemSodium [Moles/Vol]135 mmol/LLowAUK HealthcareUrea nitrogen [Mass/Vol]16 mg/dLRegency Hospital Cleveland WestLaboratory - Hematology and Cell countson 70-75-3874Zvjyzkeyy/100 WBC (Bld)1.0 %0.0 - 2.0 %[facility] WestDifferential cell count method Nom (Bld)AUTO DIFF%[facility] WestEosinophils (Bld) [#/Vol]0.2 10*3/uL0.0 - 0.7 10*3/uLRegency Hospital Cleveland WestEosinophils/100 WBC (Bld) 4.1 %0.0 - 11.0 %[facility] WestErythrocyte distribution width (RBC) [Ratio] 15.2 %High11.5 - 14.5 %[facility] WestHematocrit (Bld) [Volume fraction]31.9 %Low36.0 - 48.0 %[facility] WestHemoglobin (Bld) [Mass/Vol]10.7 g/dLLowRegency Hospital Cleveland WestLymphocytes (Bld) [#/Vol]1.3 10*3/uL1.2 - 3.4 10*3/uLRegency Hospital Cleveland WestLymphocytes/100 WBC (Bld)25.8 %20.0 - 55.0 %[facility] WestMCH (RBC) [Entitic mass]32.2 pg26.0 - 35.0 PGAUK HealthcareMCHC (RBC) [Mass/Vol]33.6 g/dLRegency Hospital Cleveland WestMCV (RBC) [Entitic vol]96.1 [facility] Monocytes (Bld) [#/Vol]0.7 10*3/uL0.0 - 0.7 10*3/uLRegency Hospital Cleveland West Monocytes/100 WBC (Bld)13.4 %High0.0 - 10.0 %[facility] WestNeutrophils (Bld) [#/Vol]2.8 10*3/uL1.4 - 6.5 10*3/[facility] Osteopathic ClinicNeutrophils/100 WBC (Bld)55.7 %37.0 - 75.0 %[facility] WestPlatelet mean volume (Bld) [Entitic vol]7.2 fLLowRegency Hospital Cleveland WestPlatelets (Bld) [#/Vol]368 10*3/uL130 - 400 10*3/[facility] Osteopathic ClinicRBC (Bld) [#/Vol]3.32 10*6/uLLow4.0 - 5.4 10*6/[facility]opathic ClinicWBC (Bld) [#/Vol]5.0 10*3/uL3.6 - 11.0 10*3/[facility] No Panel Informationon [id number] COMMENTAverage GFR for 70+ years old = 75. [facility] WestInterpretation and review of laboratory resultsAbnormalAMercy Memorial HospitalABSOLUTE BASOPHIL COUNT0.0 10*3/uL0.0 - 0.2 10*3/[facility] ClinicInterpretation and review of laboratory results AbnormalWilson Memorial HospitalBMP FASTINGon 45-06-4517Mjpgo gap [Moles/Vol]1 mmol/LLow8-16[facility] HospitalCalcium [Mass/Vol]8.8 mg/dL Normal8.4-10.2AKingman Community HospitalChloride [Moles/Vol]105 mmol/FXxiuau60-965 [facility] HospitalComment on above:Result Comment: Please note: Triglyceride levels of 600mg/dL or higher may positively bias chlorideresults by approximately 2.1 mmolCO2 [Moles/Vol]29 mmol/AGjbosx49-46DozesSaint Joseph Memorial Hospital Creatinine [Mass/Vol]0.80 mg/dLNormal0.7-1.2AMeadowbrook Rehabilitation Hospital. GFR, Lhhawubt29 ml/min/1.73sq.mNormalHolmes County Joel Pomerene Memorial Hospital. GFR,Non Qjmynjdz67 ml/min/1.73sq.mNormalSaint Joseph Memorial HospitalGFR Information Average GFR for 70+ years old = 75.NormalSaint Joseph Memorial HospitalComment on above: Result Comment: Chronic Kidney disease, GFR = <60. Kidney failure, GFR = <15. The GFR estimate is not adjusted for extreme body surface area or acute process, nor has it been validated for women or ethnic groups other than and .Glucose [Mass/Vol]97 mg/xBDiylrs74-907MwwbeSaint Joseph Memorial HospitalComment on above:Result Comment: NORMAL <100 mg/dL PREDIABETES 101-126 mg/dL DIABETES 126 mg/dL or higherPotassium [Moles/Vol]4.3 mmol/LNormal3.5-5.1AHodgeman County Health Centerodium [Moles/Vol]135 mmol/ESjo337-457IuwanSaint Joseph Memorial HospitalUrea nitrogen [Mass/Vol]19 mg/dLNormal7-20[facility] HospitalC REACTIVE PROTEINon 23-23-9343NEB [Mass/Vol]18.6 mg/LHigh0-10AKingman Community HospitalCBCon 02-10-2024 ABSOLUTE BAS0.0 10*3/uLNormal0.0-0.2AKingman Community HospitalABSOLUTE EOS0.2 10*3/uLNormal0.0-0.7AKingman Community HospitalABSOLUTE NEUTROPHIL COUNT3.8 10*3/uL Normal1.4-6.5AKingman Community HospitalBasophils/100 WBC (Bld)0.6 %Normal0.0-2.0 [facility] HospitalDTYPEAUTO DIFFNormalAKingman Community HospitalEosinophils/100 WBC (Bld)3.1 %Normal0.0-11.0[facility] HospitalLymphocytes (Bld) [#/Vol]1.6 10*3/uLNormal1.2-3.4AKingman Community HospitalLymphocytes/100 WBC (Bld)24.9 %Normal 20.0-55.0[facility] HospitalMonocytes (Bld) [#/Vol]0.7 10*3/uLNormal0.0-0.7 [facility] HospitalMonocytes/100 WBC (Bld)11.0 %High0.0-10.0[facility] HospitalNeutrophils/100 WBC (Bld)60.4 %Xojbhw32.0-75.0[facility] Erythrocyte distribution width (RBC) [Ratio]15.2 %High11.5-14.5AKingman Community HospitalHematocrit (Bld) [Volume fraction]31.7 %Low36.0-48.0[facility] HospitalHemoglobin (Bld) [Mass/Vol]10.7 g/dLLow12.0-16.0[facility] MCH (RBC) [Entitic mass]32.1 wuVhikwd72.0-35.0[facility] HospitalMCHC (RBC) [Mass/Vol]33.6 g/xYKudtub89.0-37.0[facility] HospitalMCV (RBC) [Entitic vol] 95.6 gKRfvimp85.0-100.0[facility] HospitalPlatelet mean volume (Bld) [Entitic vol]7.2 fLLow7.4-11.0[facility] HospitalPlatelets (Bld) [#/Vol]369 10*3/uL Lxgnqr457-457CytnsSaint Joseph Memorial HospitalRBC (Bld) [#/Vol]3.32 10*6/uLLow4.0-5.4AKingman Community HospitalWBC (Bld) [#/Vol]6.3 10*3/uLNormal3.6-11.0[facility] Laboratory - Chemistry and Chemistry - challengeon 05-53-1635Nzzly gap [Moles/Vol]1 mmol/LLoBigfork Valley Hospital SystemCalcium [Mass/Vol]8.8 mg/dLMemorial Hospital SystemChloride [Moles/Vol]105 mmol/[facility] Health SystemCO2 [Moles/Vol]29 mmol/L [facility] WestCreatinine [Mass/Vol]0.80 mg/dLMemorial Hospital SystemCRP [Mass/Vol]18.6 mg/LHigh0 - 10 MG/LAvita Health SystemGFR/1.73 sq M.predicted among blacks MDRD (S/P/Bld) [Vol rate/Area]89 mL/min/{1.73_m2}ml/min/1.73sq.m [facility] WestGFR/1.73 sq M.predicted among non-blacks MDRD (S/P/Bld) [Vol rate/Area]73 mL/min/{1.73_m2}ml/min/1.73sq.[facility] Medical CenterGlucose post fast [Mass/Vol]97 mg/dLRegency Hospital Cleveland WestPotassium [Moles/Vol]4.3 mmol/[facility] Hospitalodium [Moles/Vol]135 mmol/LLoCleveland Clinic Akron General Lodi HospitalUrea nitrogen [Mass/Vol]19 mg/dLRegency Hospital Cleveland WestLaboratory - Hematology and Cell countson 75-75-6267Lueojrzsw/100 WBC (Bld)0.6 %0.0 - 2.0 %[facility] WestDifferential cell count method Nom (Bld)AUTO DIFF%[facility] WestEosinophils (Bld) [#/Vol]0.2 10*3/uL0.0 - 0.7 10*3/uLRegency Hospital Cleveland WestEosinophils/100 WBC (Bld) 3.1 %0.0 - 11.0 %[facility] WestErythrocyte distribution width (RBC) [Ratio] 15.2 %High11.5 - 14.5 %[facility] WestHematocrit (Bld) [Volume fraction]31.7 %Low36.0 - 48.0 %[facility] WestHemoglobin (Bld) [Mass/Vol]10.7 g/dLLowRegency Hospital Cleveland WestLymphocytes (Bld) [#/Vol]1.6 10*3/uL1.2 - 3.4 10*3/uLRegency Hospital Cleveland WestLymphocytes/100 WBC (Bld)24.9 %20.0 - 55.0 %[facility] WestMCH (RBC) [Entitic mass]32.1 pg26.0 - 35.0 PGAUK HealthcareMCHC (RBC) [Mass/Vol]33.6 g/dLRegency Hospital Cleveland WestMCV (RBC) [Entitic vol]95.6 [facility] Monocytes (Bld) [#/Vol]0.7 10*3/uL0.0 - 0.7 10*3/[facility] Monocytes/100 WBC (Bld)11.0 %High0.0 - 10.0 %[facility] WestNeutrophils (Bld) [#/Vol]3.8 10*3/uL1.4 - 6.5 10*3/[facility]opathic ClinicNeutrophils/100 WBC (Bld)60.4 %37.0 - 75.0 %[facility] WestPlatelet mean volume (Bld) [Entitic vol]7.2 fLMiddletown HospitalPlatelets (Bld) [#/Vol]369 10*3/uL130 - 400 10*3/[facility] Osteopathic ClinicRBC (Bld) [#/Vol]3.32 10*6/uLLow4.0 - 5.4 10*6/[facility] ClinicWBC (Bld) [#/Vol]6.3 10*3/uL3.6 - 11.0 10*3/[facility] No Panel Informationon [id number] COMMENTAverage GFR for 70+ years old = 75. [facility] WestInterpretation and review of laboratory resultsAbnormZanesville City HospitalABSOLUTE BASOPHIL COUNT0.0 10*3/uL0.0 - 0.2 10*3/[facility] ClinicInterpretation and review of laboratory results AbnormalWilson Memorial HospitalBMP FASTINGon 52-32-2510Vtbgm gap [Moles/Vol]3 mmol/LLow8-16[facility] HospitalCalcium [Mass/Vol]9.1 mg/dL Normal8.4-10.2AKingman Community HospitalChloride [Moles/Vol]104 mmol/RBmsmeg33-379 [facility] HospitalComment on above:Result Comment: Please note: Triglyceride levels of 600mg/dL or higher may positively bias chlorideresults by approximately 2.1 mmolCO2 [Moles/Vol]28 mmol/MGdegkd70-88QpekgSaint Joseph Memorial Hospital Creatinine [Mass/Vol]0.90 mg/dLNormal0.7-1.2AKingman Community HospitalEST. GFR, Tgwqvnhx93 ml/min/1.73sq.mNormalHolmes County Joel Pomerene Memorial Hospital. GFR,Non Ngerbnyw35 ml/min/1.73sq.mNThe University of Toledo Medical CenterGFR Information Average GFR for 70+ years old = 75.NormalSaint Joseph Memorial HospitalComment on above: Result Comment: Chronic Kidney disease, GFR = <60. Kidney failure, GFR = <15. The GFR estimate is not adjusted for extreme body surface area or acute process, nor has it been validated for women or ethnic groups other than and .Glucose [Mass/Vol]103 mg/lCAsyr38-959HeflhSaint Joseph Memorial HospitalComment on above:Result Comment: NORMAL <100 mg/dL PREDIABETES 101-126 mg/dL DIABETES 126 mg/dL or higherPotassium [Moles/Vol]4.5 mmol/LNormal3.5-5.1AHodgeman County Health Centerodium [Moles/Vol]135 mmol/ASlo418-150OheieSaint Joseph Memorial HospitalUrea nitrogen [Mass/Vol]20 mg/dLNormal7-20[facility] REACTIVE PROTEINon 46-66-5905WPV [Mass/Vol]21.2 mg/LHigh0-10AKingman Community HospitalCBCon 02-09-2024 ABSOLUTE BAS0.1 10*3/uLNormal0.0-0.2AKingman Community HospitalABSOLUTE EOS0.2 10*3/uLNormal0.0-0.7AKingman Community HospitalABSOLUTE NEUTROPHIL COUNT3.7 10*3/uL Normal1.4-6.5AKingman Community HospitalBasophils/100 WBC (Bld)0.9 %Normal0.0-2.0 [facility] HospitalDTYPEAUTO DIFFNormalAKingman Community HospitalEosinophils/100 WBC (Bld)2.9 %Normal0.0-11.0[facility] HospitalLymphocytes (Bld) [#/Vol]1.8 10*3/uLNormal1.2-3.4AKingman Community HospitalLymphocytes/100 WBC (Bld)27.8 %Normal 20.0-55.0[facility] HospitalMonocytes (Bld) [#/Vol]0.7 10*3/uLNormal0.0-0.7 [facility] HospitalMonocytes/100 WBC (Bld)10.8 %High0.0-10.0[facility] HospitalNeutrophils/100 WBC (Bld)57.6 %Rfkwpz39.0-75.0[facility] Erythrocyte distribution width (RBC) [Ratio]15.1 %High11.5-14.5AKingman Community HospitalHematocrit (Bld) [Volume fraction]34.2 %Low36.0-48.0[facility] HospitalHemoglobin (Bld) [Mass/Vol]11.4 g/dLLow12.0-16.0[facility] MCH (RBC) [Entitic mass]32.0 bdTchbqe68.0-35.0[facility] MemorialHC (RBC) [Mass/Vol]33.4 g/qRVobktt29.0-37.0[facility] HospitalMCV (RBC) [Entitic vol] 96.0 mCNxtpaj59.0-100.0[facility] HospitalPlatelet mean volume (Bld) [Entitic vol]7.4 fLNormal7.4-11.0[facility] HospitalPlatelets (Bld) [#/Vol]401 10*3/kGHnie997-445ZswjsSaint Joseph Memorial HospitalRBC (Bld) [#/Vol]3.56 10*6/uLLow4.0-5.4 [facility] HospitalWBC (Bld) [#/Vol]6.4 10*3/uLNormal3.6-11.0[facility] HospitalLaboratory - Chemistry and Chemistry - challengeon [id number] gap [Moles/Vol]3 mmol/LLowAEast [facility] Regional Hospital SystemCalcium [Mass/Vol]9.1 mg/dLMemorial Hospital SystemChloride [Moles/Vol]104 mmol/[facility] Health SystemCO2 [Moles/Vol]28 mmol/L [facility] WestCreatinine [Mass/Vol]0.90 mg/dLRegency Hospital Cleveland WestCRP [Mass/Vol]21.2 mg/LHigh0 - 10 MG/[facility] SystemGFR/1.73 sq M.predicted among blacks MDRD (S/P/Bld) [Vol rate/Area]77 mL/min/{1.73_m2}ml/min/1.73sq.m [facility] SystemGFR/1.73 sq M.predicted among non-blacks MDRD (S/P/Bld) [Vol rate/Area]64 mL/min/{1.73_m2}ml/min/1.73sq.mAUK HealthcareGlucose post fast [Mass/Vol]103 mg/dLHighRegency Hospital Cleveland WestPotassium [Moles/Vol]4.5 mmol/[facility] Health SystemSodium [Moles/Vol]135 mmol/LLoCleveland Clinic Akron General Lodi HospitalUrea nitrogen [Mass/Vol]20 mg/dLRegency Hospital Cleveland WestLaboratory - Hematology and Cell countson 26-23-3736Hvkuytsrm/100 WBC (Bld)0.9 %0.0 - 2.0 %[facility] WestDifferential cell count method Nom (Bld)AUTO DIFF%[facility] WestEosinophils (Bld) [#/Vol]0.2 10*3/uL0.0 - 0.7 10*3/uLRegency Hospital Cleveland WestEosinophils/100 WBC (Bld) 2.9 %0.0 - 11.0 %[facility] WestErythrocyte distribution width (RBC) [Ratio] 15.1 %High11.5 - 14.5 %[facility] WestHematocrit (Bld) [Volume fraction]34.2 %Low36.0 - 48.0 %[facility] WestHemoglobin (Bld) [Mass/Vol]11.4 g/dLLowRegency Hospital Cleveland WestLymphocytes (Bld) [#/Vol]1.8 10*3/uL1.2 - 3.4 10*3/uLRegency Hospital Cleveland WestLymphocytes/100 WBC (Bld)27.8 %20.0 - 55.0 %[facility] (RBC) [Entitic mass]32.0 pg26.0 - 35.0 PGAvita Health SystemMCHC (RBC) [Mass/Vol]33.4 g/dLRegency Hospital Cleveland WestMCV (RBC) [Entitic vol]96.0 [facility] Monocytes (Bld) [#/Vol]0.7 10*3/uL0.0 - 0.7 10*3/[facility] Monocytes/100 WBC (Bld)10.8 %High0.0 - 10.0 %[facility] WestNeutrophils (Bld) [#/Vol]3.7 10*3/uL1.4 - 6.5 10*3/[facility] ClinicNeutrophils/100 WBC (Bld)57.6 %37.0 - 75.0 %[facility] WestPlatelet mean volume (Bld) [Entitic vol]7.4 [facility] HospitalPlatelets (Bld) [#/Vol]401 10*3/fZBqjl213 - 400 10*3/[facility] ClinicRBC (Bld) [#/Vol]3.56 10*6/uLLow4.0 - 5.4 10*6/[facility] ClinicWBC (Bld) [#/Vol]6.4 10*3/uL3.6 - 11.0 10*3/[facility] No Panel Informationon [id number] COMMENTAverage GFR for 70+ years old = 75. [facility] WestInterpretation and review of laboratory resultsAbnormZanesville City HospitalABSOLUTE BASOPHIL COUNT0.1 10*3/uL0.0 - 0.2 10*3/[facility]opathic ClinicInterpretation and review of laboratory results AbnormalWilson Memorial HospitalBMP FASTINGon 39-09-7839Ogemd gap [Moles/Vol]NegativeNormal8-16[facility] HospitalCalcium [Mass/Vol]8.9 mg/dL Normal8.4-10.2AKingman Community HospitalChloride [Moles/Vol]104 mmol/MTjztoc55-075 [facility] HospitalComment on above:Result Comment: Please note: Triglyceride levels of 600mg/dL or higher may positively bias chlorideresults by approximately 2.1 mmolCO2 [Moles/Vol]30 mmol/YTnetkg57-34LnrakSaint Joseph Memorial Hospital Creatinine [Mass/Vol]0.80 mg/dLNormal0.7-1.2AMeadowbrook Rehabilitation [facility]. GFR, Qlnxxmzi38 ml/min/1.73sq.mNormalSaint Joseph Memorial HospitalEST. GFR,Non Lvulrtif88 ml/min/1.73sq.mNThe University of Toledo Medical CenterGFR Information Average GFR for 70+ years old = 75.NormalSaint Joseph Memorial HospitalComment on above: Result Comment: Chronic Kidney disease, GFR = <60. Kidney failure, GFR = <15. The GFR estimate is not adjusted for extreme body surface area or acute process, nor has it been validated for women or ethnic groups other than and .Glucose [Mass/Vol]96 mg/yWKiswwo52-396ZtgtvSaint Joseph Memorial HospitalComment on above:Result Comment: NORMAL <100 mg/dL PREDIABETES 101-126 mg/dL DIABETES 126 mg/dL or higherPotassium [Moles/Vol]4.3 mmol/LNormal3.5-5.1AHodgeman County Health Centerodium [Moles/Vol]133 mmol/RKmx546-027CuxqoSaint Joseph Memorial HospitalUrea nitrogen [Mass/Vol]14 mg/dLNormal7-20[facility] REACTIVE PROTEINon 30-89-5154SEO [Mass/Vol]22.2 mg/LHigh0-10AKingman Community HospitalCBCon 02-08-2024 ABSOLUTE BAS0.1 10*3/uLNormal0.0-0.2AKingman Community HospitalABSOLUTE EOS0.2 10*3/uLNormal0.0-0.7AKingman Community HospitalABSOLUTE NEUTROPHIL COUNT3.2 10*3/uL Normal1.4-6.5AKingman Community HospitalBasophils/100 WBC (Bld)1.0 %Normal0.0-2.0 [facility] HospitalDTYPEAUTO DIFFNormalAKingman Community HospitalEosinophils/100 WBC (Bld)3.5 %Normal0.0-11.0[facility] HospitalLymphocytes (Bld) [#/Vol]1.5 10*3/uLNormal1.2-3.4AviGuthrie Corning HospitalLymphocytes/100 WBC (Bld)26.3 %Normal 20.0-55.0AviGuthrie Corning HospitalMonocytes (Bld) [#/Vol]0.6 10*3/uLNormal0.0-0.7 AviGuthrie Corning HospitalMonocytes/100 WBC (Bld)11.2 %High0.0-10.0[facility] HospitalNeutrophils/100 WBC (Bld)58.0 %Fbarqz68.0-75.0[facility] Erythrocyte distribution width (RBC) [Ratio]15.3 %High11.5-14.5AKingman Community HospitalHematocrit (Bld) [Volume fraction]30.8 %Low36.0-48.0[facility] HospitalHemoglobin (Bld) [Mass/Vol]10.4 g/dLLow12.0-16.0[facility] MCH (RBC) [Entitic mass]32.1 vhLqwcxg17.0-35.0[facility] MemorialHC (RBC) [Mass/Vol]33.7 g/rYMxhuup09.0-37.0[facility] MemorialV (RBC) [Entitic vol] 95.1 pGXefiiz75.0-100.0[facility] HospitalPlatelet mean volume (Bld) [Entitic vol]7.4 fLNormal7.4-11.0[facility] HospitalPlatelets (Bld) [#/Vol]368 10*3/wVObpvri097-673Aazrx [facility] CenterRBC (Bld) [#/Vol]3.24 10*6/uLLow 4.0-5.4AviGuthrie Corning HospitalWBC (Bld) [#/Vol]5.5 10*3/uLNormal3.6-11.0[facility] HospitalESRon 87-71-8509ZMI (Bld) [Velocity]75 mm/hHigh0-30[facility] A Behavioral Hospitalta [facility] CenterLaboratory - Chemistry and Chemistry - challengeon 59-88-8309Gpqxm gap [Moles/Vol]NegativeAvita Health SystemCalcium [Mass/Vol]8.9 mg/dLMemorial Hospital SystemChloride [Moles/Vol]104 mmol/LAvita Health SystemCO2 [Moles/Vol]30 mmol/L [facility] WestCreatinine [Mass/Vol]0.80 mg/dLRegency Hospital Cleveland WestCRP [Mass/Vol]22.2 mg/LHigh0 - 10 MG/LAvita Health SystemGFR/1.73 sq M.predicted among blacks MDRD (S/P/Bld) [Vol rate/Area]89 mL/min/{1.73_m2}ml/min/1.73sq.m [facility] SystemGFR/1.73 sq M.predicted among non-blacks MDRD (S/P/Bld) [Vol rate/Area]73 mL/min/{1.73_m2}ml/min/1.73sq.mAUK HealthcareGlucose post fast [Mass/Vol]96 mg/dLRegency Hospital Cleveland WestPotassium [Moles/Vol]4.3 mmol/[facility] Health SystemSodium [Moles/Vol]133 mmol/LLowAEast Ohio Regional Hospital SystemUrea nitrogen [Mass/Vol]14 mg/dLRegency Hospital Cleveland WestLaboratory - Hematology and Cell countson 53-85-3706IUH (Bld) [Velocity]75 mm/hHighRegency Hospital Cleveland WestBasophils/100 WBC (Bld)1.0 %0.0 - 2.0 %[facility] WestDifferential cell count method Nom (Bld) AUTO DIFF%[facility] WestEosinophils (Bld) [#/Vol]0.2 10*3/uL0.0 - 0.7 10*3/uLRegency Hospital Cleveland WestEosinophils/100 WBC (Bld)3.5 %0.0 - 11.0 %[facility] WestErythrocyte distribution width (RBC) [Ratio]15.3 %High11.5 - 14.5 %[facility] WestHematocrit (Bld) [Volume fraction]30.8 %Low36.0 - 48.0 %[facility] WestHemoglobin (Bld) [Mass/Vol]10.4 g/dLLowRegency Hospital [facility] West Lymphocytes (Bld) [#/Vol]1.5 10*3/uL1.2 - 3.4 10*3/[facility] Lymphocytes/100 WBC (Bld)26.3 %20.0 - 55.0 %[facility] WestMCH (RBC) [Entitic mass]32.1 pg26.0 - 35.0 PGAUK HealthcareMCHC (RBC) [Mass/Vol]33.7 g/dLRegency Hospital Cleveland WestMCV (RBC) [Entitic vol]95.1 [facility] Monocytes (Bld) [#/Vol]0.6 10*3/uL0.0 - 0.7 10*3/[facility] Monocytes/100 WBC (Bld)11.2 %High0.0 - 10.0 %[facility] WestNeutrophils (Bld) [#/Vol]3.2 10*3/uL1.4 - 6.5 10*3/[facility] ClinicNeutrophils/100 WBC (Bld)58.0 %37.0 - 75.0 %[facility] WestPlatelet mean volume (Bld) [Entitic vol]7.4 [facility] HospitalPlatelets (Bld) [#/Vol]368 10*3/uL130 - 400 10*3/uL [facility] WestRBC (Bld) [#/Vol]3.24 10*6/uLLow4.0 - 5.4 10*6/[facility] ClinicWBC (Bld) [#/Vol]5.5 10*3/uL3.6 - 11.0 10*3/[facility] ClinicNo Panel Informationon [id number] and review of laboratory resultsAbnormal [facility] HospitalGFR COMMENTAverage GFR for 70+ years old = 75.[facility] WestInterpretation and review of laboratory resultsAbnormal [facility] HospitalABSOLUTE BASOPHIL COUNT0.1 10*3/uL0.0 - 0.2 10*3/[facility] ClinicInterpretation and review of laboratory results AbnormalWilson Memorial HospitalBMP FASTINGon 72-72-3755Byyfn gap [Moles/Vol]1 mmol/LLow8-16[facility] HospitalComment on above:Performed By: #### ACBC #### Testing performed at [address] [address]Udgjrzv [Mass/Vol]8.8 mg/dLNormal8.4-10.2AKingman Community Hospital Comment on above:Performed By: #### ACBC #### Testing performed at [address] [address]Zcjdttwk [Moles/Vol]105 mmol/DWyumsa29-889WrwjmSaint Joseph Memorial HospitalComment on above:Result Comment: Please note: Triglyceride levels of 600mg/dL or higher may positively bias chlorideresults by approximately 2.1 mmol Performed By: #### ACBC #### Testing performed at [address] [address]IE7 [Moles/Vol]27 mmol/LSrupdx29-88MmxjxSaint [facility] Memorial Hospital Comment on above:Performed By: #### ACBC #### Testing performed at [address] [address]Iiffodudcx [Mass/Vol]0.70 mg/dLNormal0.7-1.2AThe Valley Hospital HospitalComment on above:Performed By: #### ACBC #### Testing performed at [address] [place] [address]IZH. GFR, Cimtlfgp970 ml/min/1.73sq.mNLoma Linda Veterans Affairs Medical Center HospitalComment on above:Performed By: #### ACBC #### Testing performed at [address] [address]IEW. GFR,Non Ccklprks00 ml/min/1.73sq.[facility] HospitalComment on above:Performed By: #### ACBC #### Testing performed at [address] [address]MZN InformationAverage GFR for 70+ years old = 75.NormalAlta Bates Summit Medical Center HospitalComment on above:Result Comment: Chronic Kidney disease, GFR = <60. Kidney failure, GFR = <15. The GFR estimate is not adjusted for extreme body surface area or acute process, nor has it been validated for women or ethnic groups other than and .Performed By: #### ACBC #### Testing performed at [address] [address]Psosswo [Mass/Vol]95 mg/cUDxwwow15-567JpycuSaint Joseph Memorial Hospital Comment on above:Result Comment: NORMAL <100 mg/dL PREDIABETES 101-126 mg/dL DIABETES 126 mg/dL or higherPerformed By: #### ACBC #### Testing performed at [address] [address]Bvcfzbiyz [Moles/Vol]4.3 mmol/LNormal3.5-5.1AKingman Community HospitalComment on above:Performed By: #### ACBC #### Testing performed at [address] [address]Apdrib [Moles/Vol]133 mmol/PEbh931-946AmvaySaint Joseph Memorial Hospital Comment on above:Performed By: #### ACBC #### Testing performed at [address] [address]Jpox nitrogen [Mass/Vol]11 mg/dLNormal7-20[facility] HospitalComment on above:Performed By: #### ACBC #### Testing performed at [address] [address]G REACTIVE PROTEINon 06-89-6333BUP [Mass/Vol]19.6 mg/LHigh0-10 [facility] HospitalComment on above:Performed By: #### ACBC #### Testing performed at [address] [address]YUHal 72-81-6220MKWCBMVH BAS0.0 10*3/uLNormal0.0-0.2AKingman Community HospitalComment on above:Performed By: #### ACBC #### Testing performed at [address] [place], [place] [address]CDSFYGUW EOS0.2 10*3/uLNormal0.0-0.7AKingman [facility] Hospital Comment on above:Performed By: #### ACBC #### Testing performed at [address] [address]EVPAGUTA NEUTROPHIL COUNT2.8 10*3/uLNormal1.4-6.5AThe Valley Hospital HospitalComment on above:Performed By: #### ACBC #### Testing performed at [address] [address]Aporjwhkp/100 WBC (Bld)0.9 %Normal0.0-2.0[facility] Comment on above:Performed By: #### ACBC #### Testing performed at [address] [address]XQNXELNOZ DIFFNormalAThe Valley Hospital HospitalComment on above: Performed By: #### ACBC #### Testing performed at [address] [address]Wqgleuskpyv/100 WBC (Bld)3.8 %Normal0.0-11.0[facility] HospitalComment on above:Performed By: #### ACBC #### Testing performed at [address] [address]Grsznastgpk (Bld) [#/Vol]1.4 10*3/uLNormal1.2-3.4AThe Valley Hospital HospitalComment on above:Performed By: #### ACBC #### Testing performed at [address] [address]Tyiopvfiurr/100 WBC (Bld)28.3 %Hzavlv05.0-55.0[facility] HospitalComment on above:Performed By: #### ACBC #### Testing performed at [address] [address]Jgjyiqhlt (Bld) [#/Vol]0.6 10*3/uLNormal0.0-0.7AThe Valley Hospital HospitalComment on above:Performed By: #### ACBC #### Testing performed at [address] [address]Kwnnlcnud/100 WBC (Bld)12.4 %High0.0-10.0[facility] Comment on above:Performed By: #### ACBC #### Testing performed at [address] [address]Vqdtlbumauq/100 WBC (Bld)54.6 %Teicpa14.0-75.0[facility] HospitalComment on above:Performed By: #### ACBC #### Testing performed at [address] [address]Dmtqotxugfn distribution width (RBC) [Ratio]16.0 %High11.5-14.5 [facility] HospitalComment on above:Performed By: #### ACBC #### Testing performed at [address] [address]Pomskmlwmq (Bld) [Volume fraction]31.7 %Low36.0-48.0[facility] HospitalComment on above:Performed By: #### ACBC #### Testing performed at [address] [address]Yigeezciql (Bld) [Mass/Vol]10.5 g/dLLow12.0-16.0[facility] HospitalComment on above:Performed By: #### ACBC #### Testing performed at [address] [address]VWC (RBC) [Entitic mass]32.5 asYvnlzk89.0-35.0[facility] HospitalComment on above:Performed By: #### ACBC #### Testing performed at [address] [address]UNJU (RBC) [Mass/Vol]33.1 g/dWWqgvhf06.0-37.0[facility] HospitalComment on above:Performed By: #### ACBC #### Testing performed at [address] [address]WRU (RBC) [Entitic vol]98.4 rEVvafcm44.0-100.0[facility] HospitalComment on above:Performed By: #### ACBC #### Testing performed at [address] [address]Gphujlvg mean volume (Bld) [Entitic vol]7.2 fLLow7.4-11.0[facility] HospitalComment on above:Performed By: #### ACBC #### Testing performed at [address] [address]Gtdeeskxs (Bld) [#/Vol]366 10*3/gPDyxevo536-735KueekSaint Joseph Memorial HospitalComment on above:Performed By: #### ACBC #### Testing performed at [address] [address]YJH (Bld) [#/Vol]3.23 10*6/uLLow4.0-5.4AKingman [facility] Hospital Comment on above:Performed By: #### ACBC #### Testing performed at [address] [address]NVG (Bld) [#/Vol]5.1 10*3/uLNormal3.6-11.0[facility] HospitalComment on above:Performed By: #### ACBC #### Testing performed at [address] [address]Ojpsuokvij - Chemistry and Chemistry - challengeon 02-07-2024 Anion gap [Moles/Vol]1 mmol/[facility] SystemCalcium [Mass/Vol]8.8 mg/dL [facility] SystemChloride [Moles/Vol]105 mmol/[facility] Health SystemCO2 [Moles/Vol]27 mmol/[facility] HospitalCreatinine [Mass/Vol]0.70 mg/dLRegency Hospital Cleveland WestCRP [Mass/Vol]19.6 mg/LHigh0 - 10 MG/[facility] SystemGFR/1.73 sq M.predicted among blacks MDRD (S/P/Bld) [Vol rate/Area]103 mL/min/{1.73_m2} ml/min/1.73sq.mAvita Health SystemGFR/1.73 sq M.predicted among non-blacks MDRD (S/P/Bld) [Vol rate/Area]85 mL/min/{1.73_m2}ml/min/1.73sq.[facility] Glucose post fast [Mass/Vol]95 mg/dLRegency Hospital Cleveland WestPotassium [Moles/Vol]4.3 mmol/[facility] SystemSodium [Moles/Vol]133 mmol/LLoCleveland Clinic Akron General Lodi HospitalUrea nitrogen [Mass/Vol]11 mg/dLRegency Hospital Cleveland WestLaboratory - Hematology and Cell countson 87-07-7805Ggbirhczm/100 WBC (Bld)0.9 %0.0 - 2.0 %[facility] Differential cell count method Nom (Bld)AUTO DIFF%[facility] WestEosinophils (Bld) [#/Vol]0.2 10*3/uL0.0 - 0.7 10*3/uLRegency Hospital Cleveland WestEosinophils/100 WBC (Bld)3.8 %0.0 - 11.0 %[facility] WestErythrocyte distribution width (RBC) [Ratio]16.0 %High11.5 - 14.5 %[facility] WestHematocrit (Bld) [Volume fraction]31.7 %Low36.0 - 48.0 %[facility] WestHemoglobin (Bld) [Mass/Vol] 10.5 g/dLLowRegency Hospital Cleveland WestLymphocytes (Bld) [#/Vol]1.4 10*3/uL1.2 - 3.4 10*3/uLRegency Hospital Cleveland WestLymphocytes/100 WBC (Bld)28.3 %20.0 - 55.0 %[facility] WestMCH (RBC) [Entitic mass]32.5 pg26.0 - 35.0 PGAvita Health System MCHC (RBC) [Mass/Vol]33.1 g/dLRegency Hospital Cleveland WestMCV (RBC) [Entitic vol]98.4 fL [facility] WestMonocytes (Bld) [#/Vol]0.6 10*3/uL0.0 - 0.7 10*3/[facility] ClinicMonocytes/100 WBC (Bld)12.4 %High0.0 - 10.0 %[facility] Neutrophils (Bld) [#/Vol]2.8 10*3/uL1.4 - 6.5 10*3/[facility] Neutrophils/100 WBC (Bld)54.6 %37.0 - 75.0 %[facility] WestPlatelet mean volume (Bld) [Entitic vol]7.2 fLLowRegency Hospital Cleveland WestPlatelets (Bld) [#/Vol]366 10*3/uL130 - 400 10*3/[facility] ClinicRBC (Bld) [#/Vol]3.23 10*6/uLLow4.0 - 5.4 10*6/[facility] ClinicWBC (Bld) [#/Vol]5.1 10*3/uL3.6 - 11.0 10*3/uL [facility] WestNo Panel Informationon [id number] BASOPHIL COUNT0.0 10*3/uL0.0 - 0.2 10*3/[facility] ClinicInterpretation and review of laboratory resultsAbRochester Regional HealthGFR COMMENT Average GFR for 70+ years old = 75.[facility] WestInterpretation and review of laboratory resultsAbRochester Regional HealthBMP FASTINGon 47-48-5029Rwdqf gap [Moles/Vol]2 mmol/LLow8-16[facility] HospitalCalcium [Mass/Vol]8.6 mg/dLNormal8.4-10.2AviRiverview Medical Centerus HospitalChloride [Moles/Vol]104 mmol/DBsvxug17-426Vouwi Bucyrus HospitalComment on above:Result Comment: Please note: Triglyceride levels of 600mg/dL or higher may positively bias chloride results by approximately 2.1 mmolCO2 [Moles/Vol]29 mmol/AUjjwnp30-73WxmwhSaint Joseph Memorial HospitalCreatinine [Mass/Vol]0.80 mg/dLNormal0.7-1.2AKingman Community HospitalEST. GFR, Hbxqrour99 ml/min/1.73sq.mNThe [facility] EST. GFR,Non Lnlgpikz28 ml/min/1.73sq.mNThe [facility] of [facility] Medical CenterGFR InformationAverage GFR for 70+ years old = 75.NormalSaint Joseph Memorial Hospital Comment on above:Result Comment: Chronic Kidney disease, GFR = <60. Kidney failure, GFR = <15. The GFR estimate is not adjusted for extreme body surface area or acute process, nor has it been validated for women or ethnic groups other than and .Glucose [Mass/Vol]100 mg/aVMuevef82-899QrffeSaint Joseph Memorial HospitalComment on above:Result Comment: NORMAL <100 mg/dL PREDIABETES 101-126 mg/dL DIABETES 126 mg/dL or higherPotassium [Moles/Vol]4.4 mmol/LNormal3.5-5.1AHodgeman County Health Centerodium [Moles/Vol]135 mmol/TUms513-747LlvkoSaint Joseph Memorial HospitalUrea nitrogen [Mass/Vol]17 mg/dLNormal7-20[facility] REACTIVE PROTEINon 82-18-5313IHW [Mass/Vol]22.7 mg/LHigh0-10AKingman Community HospitalCBCon 02-06-2024 ABSOLUTE BAS0.0 10*3/uLNormal0.0-0.2AKingman Community HospitalABSOLUTE EOS0.2 10*3/uLNormal0.0-0.7AKingman Community HospitalABSOLUTE NEUTROPHIL COUNT3.4 10*3/uL Normal1.4-6.5AKingman Community HospitalBasophils/100 WBC (Bld)0.8 %Normal0.0-2.0 [facility] HospitalDTYPEAUTO DIFFNormalAKingman Community HospitalEosinophils/100 WBC (Bld)2.8 %Normal0.0-11.0[facility] HospitalLymphocytes (Bld) [#/Vol]1.5 10*3/uLNormal1.2-3.4AKingman Community HospitalLymphocytes/100 WBC (Bld)25.0 %Normal 20.0-55.0[facility] HospitalMonocytes (Bld) [#/Vol]0.8 10*3/uLHigh0.0-0.7 AviGuthrie Corning HospitalMonocytes/100 WBC (Bld)12.9 %High0.0-10.0[facility] HospitalNeutrophils/100 WBC (Bld)58.5 %Uqekxr07.0-75.0[facility] Erythrocyte distribution width (RBC) [Ratio]15.2 %High11.5-14.5AKingman Community HospitalHematocrit (Bld) [Volume fraction]29.6 %Low36.0-48.0[facility] HospitalHemoglobin (Bld) [Mass/Vol]10.1 g/dLLow12.0-16.0[facility] MCH (RBC) [Entitic mass]32.5 ylYjkywe18.0-35.0[facility] MemorialHC (RBC) [Mass/Vol]34.0 g/cKNfyoxi31.0-37.0[facility] HospitalMCV (RBC) [Entitic vol] 95.7 nQZttnyd30.0-100.0[facility] HospitalPlatelet mean volume (Bld) [Entitic vol]6.7 fLLow7.4-11.0[facility] HospitalPlatelets (Bld) [#/Vol]365 10*3/uL Trkhkk664-987NkxquSaint Joseph Memorial HospitalRBC (Bld) [#/Vol]3.10 10*6/uLLow4.0-5.4AKingman Community HospitalWBC (Bld) [#/Vol]5.8 10*3/uLNormal3.6-11.0[facility] Laboratory - Chemistry and Chemistry - challengeon 52-50-4851Ogpia gap [Moles/Vol]2 mmol/LLowAUK HealthcareCalcium [Mass/Vol]8.6 mg/dLAvita Health SystemChloride [Moles/Vol]104 mmol/[facility] Health SystemCO2 [Moles/Vol]29 mmol/L [facility] WestCreatinine [Mass/Vol]0.80 mg/dLMemorial Hospital SystemCRP [Mass/Vol]22.7 mg/LHigh0 - 10 MG/[facility] Hospitalita Health SystemGFR/1.73 sq M.predicted among blacks MDRD (S/P/Bld) [Vol rate/Area]89 mL/min/{1.73_m2}ml/min/1.73sq.m [facility] A Behavioral Hospitalta Health SystemGFR/1.73 sq M.predicted among non-blacks MDRD (S/P/Bld) [Vol rate/Area]73 mL/min/{1.73_m2}ml/min/1.73sq.mAUK HealthcareGlucose post fast [Mass/Vol]100 mg/dLRegency Hospital Cleveland WestPotassium [Moles/Vol]4.4 mmol/[facility] Health SystemSodium [Moles/Vol]135 mmol/LLowAUK HealthcareUrea nitrogen [Mass/Vol]17 mg/dLRegency Hospital Cleveland WestLaboratory - Hematology and Cell countson 61-39-7206Xsyjytjiu/100 WBC (Bld)0.8 %0.0 - 2.0 %[facility] WestDifferential cell count method Nom (Bld)AUTO DIFF%[facility] WestEosinophils (Bld) [#/Vol]0.2 10*3/uL0.0 - 0.7 10*3/uLRegency Hospital Cleveland WestEosinophils/100 WBC (Bld) 2.8 %0.0 - 11.0 %[facility] WestErythrocyte distribution width (RBC) [Ratio] 15.2 %High11.5 - 14.5 %[facility] WestHematocrit (Bld) [Volume fraction]29.6 %Low36.0 - 48.0 %[facility] WestHemoglobin (Bld) [Mass/Vol]10.1 g/dLLowRegency Hospital Cleveland WestLymphocytes (Bld) [#/Vol]1.5 10*3/uL1.2 - 3.4 10*3/uLRegency Hospital Cleveland WestLymphocytes/100 WBC (Bld)25.0 %20.0 - 55.0 %[facility] WestMCH (RBC) [Entitic mass]32.5 pg26.0 - 35.0 [facility] (RBC) [Mass/Vol]34.0 g/dLRegency Hospital Cleveland WestMCV (RBC) [Entitic vol]95.7 [facility] Monocytes (Bld) [#/Vol]0.8 10*3/uLHigh0.0 - 0.7 10*3/[facility] Monocytes/100 WBC (Bld)12.9 %High0.0 - 10.0 %[facility] WestNeutrophils (Bld) [#/Vol]3.4 10*3/uL1.4 - 6.5 10*3/[facility] ClinicNeutrophils/100 WBC (Bld)58.5 %37.0 - 75.0 %[facility] [place] WestPlatelet mean volume (Bld) [Entitic vol]6.7 fLLowRegency Hospital Cleveland WestPlatelets (Bld) [#/Vol]365 10*3/uL130 - 400 10*3/[facility] ClinicRBC (Bld) [#/Vol]3.10 10*6/uLLow4.0 - 5.4 10*6/[facility] ClinicWBC (Bld) [#/Vol]5.8 10*3/uL3.6 - 11.0 10*3/[facility] No Panel Informationon [id number] COMMENTAverage GFR for 70+ years old = 75. [facility] WestInterpretation and review of laboratory resultsAbnormalAMercy Memorial HospitalABSOLUTE BASOPHIL COUNT0.0 10*3/uL0.0 - 0.2 10*3/[facility] ClinicInterpretation and review of laboratory results AbnormalWilson Memorial HospitalBMP FASTINGon [id number] gap [Moles/Vol]1 mmol/LLow8-16Saint [facility] HospitalComment on above:Performed By: #### ACBC ####Testing performed at [address] [address]Yrqvxdy [Mass/Vol]8.8 mg/dLNormal8.4-10.2AKingman Community HospitalComment on above:Performed By: #### ACBC ####Testing performed at [address] [address]Iffmhxey [Moles/Vol]104 mmol/YFlzybu16-427LvzpvSaint Joseph Memorial HospitalComment on above:Result Comment: Please note: Triglyceride levels of 600mg/dL or higher may positively bias chloride results by approximately 2.1 mmolPerformed By: #### ACBC ####Testing performed at [address] [address]CW7 [Moles/Vol]30 mmol/KOhchva24-55ProlvSaint Joseph Memorial HospitalComment on above:Performed By: #### ACBC ####Testing performed at [address] [address]Yyhnjeeabm [Mass/Vol]0.80 mg/dLNormal0.7-1.2AKingman Community HospitalComment on above:Performed By: #### ACBC ####Testing performed at [address] [address]SOZ. GFR, Synffsig09 ml/min/1.73sq.mNormalSaint Joseph Memorial HospitalComment on above:Performed By: #### ACBC ####Testing performed at [address] [address]RQO. GFR,Non Afydxhwr58 ml/min/1.73sq.mNormal [facility] HospitalComment on above:Performed By: #### ACBC ####Testing performed at [address] [address]FYD InformationAverage GFR for 70+ years old = 75.[facility] Comment on above:Result Comment: Chronic Kidney disease, GFR = <60. Kidney failure, GFR = <15. The GFR estimate is not adjusted for extreme body surface area or acute process, nor has it been validated for women or ethnic groups other than and .Performed By: #### ACBC ####Testing performed at [address] [address]Czqfnat [Mass/Vol] 101 mg/jFGpbw56-707OmmccSaint Joseph Memorial HospitalComment on above:Result Comment: NORMAL <100 mg/dL PREDIABETES 101-126 mg/dL DIABETES 126 mg/dL or higherPerformed By: #### ACBC ####Testing performed at [address] [address]Npvitqhkz [Moles/Vol]4.3 mmol/LNormal3.5-5.1AKingman Community HospitalComment on above: Performed By: #### ACBC ####Testing performed at [address] [address]Smstbb [Moles/Vol]135 mmol/LFqv448-843UkjwmSaint Joseph Memorial HospitalComment on above:Performed By: #### ACBC ####Testing performed at [address] [address]Aaqs nitrogen [Mass/Vol]14 mg/dLNormal7-20Saint [facility] HospitalComment on above:Performed By: #### ACBC ####Testing performed at [address] [address]S REACTIVE PROTEINon 17-12-9001EHD [Mass/Vol]21.0 mg/L High0-10AKingman Community HospitalComment on above:Performed By: #### ACBC ####Testing performed at [address] [address]HWWoc 63-11-6347WNAOQQMI BAS0.0 10*3/uLNormal0.0-0.2AThe [facility] Comment on above:Performed By: #### ACBC ####Testing performed at [address] [address]LRQOQZPL EOS0.1 10*3/uLNormal 0.0-0.7AKingman Community HospitalComment on above:Performed By: #### ACBC ####Testing performed at [address] [address]NRAVMHTT NEUTROPHIL COUNT3.1 10*3/uLNormal1.4-6.5AThe [facility] Hospital Hospital Comment on above:Performed By: #### ACBC ####Testing performed at [address] [address]Zhieltico/100 WBC (Bld)0.9 %Normal 0.0-2.0[facility] HospitalComment on above:Performed By: #### ACBC ####Testing performed at [address] [address]ECVWWNPXR DIFFNormalAKingman Community HospitalComment on above:Performed By: #### ACBC ####Testing performed at [address] [address]Wqrjdbalchc/100 WBC (Bld)2.6 %Normal0.0-11.0[facility] HospitalComment on above:Performed By: #### ACBC ####Testing performed at [address] [address]Cbzsgmyrzbr (Bld) [#/Vol] 1.2 10*3/uLNormal1.2-3.4AKingman Community HospitalComment on above:Performed By: #### ACBC ####Testing performed at [address] [address]Jpbjubbbkvb/100 WBC (Bld)23.7 %Rdzemp30.0-55.0[facility] HospitalComment on above:Performed By: #### ACBC ####Testing performed at [address] [address]Kvkyhaxwg (Bld) [#/Vol]0.6 10*3/uLNormal0.0-0.7AKingman Community HospitalComment on above:Performed By: #### ACBC ####Testing performed at [address] [address]Iegsmirmo/100 WBC (Bld)11.8 %High0.0-10.0[facility] HospitalComment on above:Performed By: #### ACBC ####Testing performed at [address] [address]Lnxmbfgcoky/100 WBC (Bld) 61.0 %Bjukud93.0-75.0[facility] HospitalComment on above:Performed By: #### ACBC ####Testing performed at [address] [address]Tjbvpdtetlj distribution width (RBC) [Ratio]15.2 %High 11.5-14.5AviGuthrie Corning HospitalComment on above:Performed By: #### ACBC ####Testing performed at [address] [address]Ytxnfjocua (Bld) [Volume fraction]30.8 %Low36.0-48.0[facility] Comment on above:Performed By: #### ACBC ####Testing performed at [address] [address]Xigccxplwk (Bld) [Mass/Vol]10.4 g/dLLow12.0-16.0[facility] HospitalComment on above:Performed By: #### ACBC ####Testing performed at [address] [address]RFG (RBC) [Entitic mass]32.3 yaIczmbg35.0-35.0[facility] HospitalComment on above:Performed By: #### ACBC ####Testing performed at [address] [address]PQQW (RBC) [Mass/Vol]33.7 g/dL Erdgpm36.0-37.0[facility] Callery HospitalComment on above:Performed By: #### ACBC ####Testing performed at [address] [address]RBQ (RBC) [Entitic vol]95.8 aBZznfdd23.0-100.0[facility] HospitalComment on above:Performed By: #### ACBC ####Testing performed at [address] [address]Rcsbgrec mean volume (Bld) [Entitic vol]6.6 fLLow7.4-11.0[facility] HospitalComment on above:Performed By: #### ACBC ####Testing performed at [address] [address]Pusdnumrv (Bld) [#/Vol]378 10*3/tJQvsrbv678-159Iecdv [facility] HospitalComment on above:Performed By: #### ACBC ####Testing performed at [address] [address]SMV (Bld) [#/Vol] 3.22 10*6/uLLow4.0-5.4AThe Valley Hospital HospitalComment on above:Performed By: #### ACBC ####Testing performed at [address] [address]LID (Bld) [#/Vol]5.0 10*3/uLNormal3.6-11.0[facility] HospitalComment on above:Performed By: #### ACBC ####Testing performed at [address] [address]Lastotindm - Chemistry and Chemistry - challengeon 06-64-8998Azzvp gap [Moles/Vol]1 mmol/LLowAvita Health SystemCalcium [Mass/Vol]8.8 mg/dLEating Recovery Center A Behavioral Hospitalta Health SystemChloride [Moles/Vol]104 mmol/LAvita Health SystemCO2 [Moles/Vol]30 mmol/LAvtimpanogos regional hospital Health SystemCreatinine [Mass/Vol]0.80 mg/dLRegency Hospital Cleveland WestCRP [Mass/Vol]21.0 mg/LHigh0 - 10 MG/L [facility] WestGFR/1.73 sq M.predicted among blacks MDRD (S/P/Bld) [Vol rate/Area]89 mL/min/{1.73_m2}ml/min/1.73sq.[facility] SystemGFR/1.73 sq M.predicted among non-blacks MDRD (S/P/Bld) [Vol rate/Area]73 mL/min/{1.73_m2} ml/min/1.73sq.[facility] Medical CenterGlucose post fast [Mass/Vol]101 mg/dLHighRegency Hospital Cleveland WestPotassium [Moles/Vol]4.3 mmol/[facility] SystemSodium [Moles/Vol]135 mmol/LLoCleveland Clinic Akron General Lodi HospitalUrea nitrogen [Mass/Vol]14 mg/dLRegency Hospital Cleveland WestLaboratory - Hematology and Cell countson 35-77-6748Czafiwull/100 WBC (Bld)0.9 %0.0 - 2.0 %[facility] [place] WestDifferential cell count method Nom (Bld)AUTO DIFF%[facility] [place] WestEosinophils (Bld) [#/Vol]0.1 10*3/uL0.0 - 0.7 10*3/uLRegency Hospital Cleveland WestEosinophils/100 WBC (Bld)2.6 %0.0 - 11.0 %[facility] [place] WestErythrocyte distribution width (RBC) [Ratio]15.2 %High11.5 - 14.5 %[facility] WestHematocrit (Bld) [Volume fraction]30.8 %Low36.0 - 48.0 %[facility] WestHemoglobin (Bld) [Mass/Vol]10.4 g/dLLowRegency Hospital [place] Lymphocytes (Bld) [#/Vol]1.2 10*3/uL1.2 - 3.4 10*3/uLRegency Hospital [place] Lymphocytes/100 WBC (Bld)23.7 %20.0 - 55.0 %[facility] WestMCH (RBC) [Entitic mass]32.3 pg26.0 - 35.0 PGAMartins Ferry HospitalHC (RBC) [Mass/Vol]33.7 g/dLRegency Hospital Cleveland WestMCV (RBC) [Entitic vol]95.8 [facility] Monocytes (Bld) [#/Vol]0.6 10*3/uL0.0 - 0.7 10*3/[facility] Monocytes/100 WBC (Bld)11.8 %High0.0 - 10.0 %[facility] [place] WestNeutrophils (Bld) [#/Vol]3.1 10*3/uL1.4 - 6.5 10*3/[facility] ClinicNeutrophils/100 WBC (Bld)61.0 %37.0 - 75.0 %[facility] [place] WestPlatelet mean volume (Bld) [Entitic vol]6.6 fLLowRegency Hospital Cleveland WestPlatelets (Bld) [#/Vol]378 10*3/uL130 - 400 10*3/[facility] [facility] ClinicRBC (Bld) [#/Vol]3.22 10*6/uLLow4.0 - 5.4 10*6/[facility] ClinicWBC (Bld) [#/Vol]5.0 10*3/uL3.6 - 11.0 10*3/[facility] No Panel Informationon [id number] COMMENTAverage GFR for 70+ years old = 75. [facility] WestInterpretation and review of laboratory resultsAbnormZanesville City HospitalABSOLUTE BASOPHIL COUNT0.0 10*3/uL0.0 - 0.2 10*3/[facility] ClinicInterpretation and review of laboratory results AbnormalWilson Memorial HospitalBMP FASTINGon 78-13-9738Ibwiq gap [Moles/Vol]1 mmol/LLow8-16[facility] HospitalCalcium [Mass/Vol]8.8 mg/dL Normal8.4-10.2AKingman Community HospitalChloride [Moles/Vol]104 mmol/VYyifql71-287 [facility] HospitalComment on above:Result Comment: Please note: Triglyceride levels of 600mg/dL or higher may positively bias chlorideresults by approximately 2.1 mmolCO2 [Moles/Vol]31 mmol/NWptq46-40MdgcqSaint Joseph Memorial Hospital Creatinine [Mass/Vol]0.80 mg/dLNormal0.7-1.2AMeadowbrook Rehabilitation Hospital. GFR, Ztbharzy62 ml/min/1.73sq.mNormalSaint Joseph Memorial HospitalEST. GFR,Non Msfrotdu66 ml/min/1.73sq.mNormalSaint Joseph Memorial HospitalGFR Information Average GFR for 70+ years old = 75.NormalSaint Joseph Memorial HospitalComment on above: Result Comment: Chronic Kidney disease, GFR = <60. Kidney failure, GFR = <15. The GFR estimate is not adjusted for extreme body surface area or acute process, nor has it been validated for women or ethnic groups other than and .Glucose [Mass/Vol]96 mg/cYRwjzpn33-693NiafmSaint Joseph Memorial HospitalComment on above:Result Comment: NORMAL <100 mg/dL PREDIABETES 101-126 mg/dL DIABETES 126 mg/dL or higherPotassium [Moles/Vol]4.4 mmol/LNormal3.5-5.1AHodgeman County Health Centerodium [Moles/Vol]136 mmol/LJxw491-359UcxslSaint Joseph Memorial HospitalUrea nitrogen [Mass/Vol]18 mg/dLNormal7-20[facility] REACTIVE PROTEINon 45-49-6752DNY [Mass/Vol]21.4 mg/LHigh0-10AKingman Community HospitalCBCon 02-04-2024 ABSOLUTE BAS0.0 10*3/uLNormal0.0-0.2AKingman Community HospitalABSOLUTE EOS0.2 10*3/uLNormal0.0-0.7AKingman Community HospitalABSOLUTE NEUTROPHIL COUNT3.5 10*3/uL Normal1.4-6.5AKingman Community HospitalBasophils/100 WBC (Bld)0.7 %Normal0.0-2.0 [facility] HospitalDTYPEAUTO DIFFNormalAKingman Community HospitalEosinophils/100 WBC (Bld)3.2 %Normal0.0-11.0[facility] HospitalLymphocytes (Bld) [#/Vol]1.5 10*3/uLNormal1.2-3.4AKingman Community HospitalLymphocytes/100 WBC (Bld)24.7 %Normal 20.0-55.0[facility] HospitalMonocytes (Bld) [#/Vol]0.8 10*3/uLHigh0.0-0.7 AviGuthrie Corning HospitalMonocytes/100 WBC (Bld)12.5 %High0.0-10.0[facility] HospitalNeutrophils/100 WBC (Bld)58.9 %Sdusdi31.0-75.0[facility] Erythrocyte distribution width (RBC) [Ratio]15.5 %High11.5-14.5AKingman Community HospitalHematocrit (Bld) [Volume fraction]30.0 %Low36.0-48.0[facility] HospitalHemoglobin (Bld) [Mass/Vol]10.2 g/dLLow12.0-16.0[facility] MCH (RBC) [Entitic mass]32.4 qkAmyjnv40.0-35.0[facility] HospitalMCHC (RBC) [Mass/Vol]33.8 g/mBFerdtp03.0-37.0[facility] MemorialV (RBC) [Entitic vol] 95.7 rUOflwtv97.0-100.0[facility] HospitalPlatelet mean volume (Bld) [Entitic vol]6.8 fLLow7.4-11.0[facility] HospitalPlatelets (Bld) [#/Vol]415 10*3/uL Wnpe024-754KhvfgSaint Joseph Memorial HospitalRBC (Bld) [#/Vol]3.14 10*6/uLLow4.0-5.4AKingman Community HospitalWBC (Bld) [#/Vol]6.0 10*3/uLNormal3.6-11.0[facility] Laboratory - Chemistry and Chemistry - challengeon [id number] gap [Moles/Vol]1 mmol/[facility] HospitalCalcium [Mass/Vol]8.8 mg/dLRegency Hospital Cleveland WestChloride [Moles/Vol]104 mmol/[facility] SystemCO2 [Moles/Vol]31 mmol/L HighRegency Hospital Cleveland WestCreatinine [Mass/Vol]0.80 mg/dLRegency Hospital Cleveland WestCRP [Mass/Vol]21.4 mg/LHigh0 - 10 MG/[facility] HospitalGFR/1.73 sq M.predicted among blacks MDRD (S/P/Bld) [Vol rate/Area]89 mL/min/{1.73_m2}ml/min/1.73sq.m [facility] SystemGFR/1.73 sq M.predicted among non-blacks MDRD (S/P/Bld) [Vol rate/Area]73 mL/min/{1.73_m2}ml/min/1.73sq.mAUK HealthcareGlucose post fast [Mass/Vol]96 mg/dLRegency Hospital Cleveland WestPotassium [Moles/Vol]4.4 mmol/[facility] SystemSodium [Moles/Vol]136 mmol/LLowAUK HealthcareUrea nitrogen [Mass/Vol]18 mg/dLRegency Hospital Cleveland WestLaboratory - Hematology and Cell countson [id number]/100 WBC (Bld)0.7 %0.0 - 2.0 %[facility] [place] WestDifferential cell count method Nom (Bld)AUTO DIFF%[facility] WestEosinophils (Bld) [#/Vol]0.2 10*3/uL0.0 - 0.7 10*3/uLRegency Hospital Cleveland WestEosinophils/100 WBC (Bld) 3.2 %0.0 - 11.0 %[facility] WestErythrocyte distribution width (RBC) [Ratio] 15.5 %High11.5 - 14.5 %[facility] WestHematocrit (Bld) [Volume fraction]30.0 %Low36.0 - 48.0 %[facility] WestHemoglobin (Bld) [Mass/Vol]10.2 g/dLLowRegency Hospital Cleveland WestLymphocytes (Bld) [#/Vol]1.5 10*3/uL1.2 - 3.4 10*3/uLRegency Hospital Cleveland WestLymphocytes/100 WBC (Bld)24.7 %20.0 - 55.0 %[facility] WestMCH (RBC) [Entitic mass]32.4 pg26.0 - 35.0 PGAUK HealthcareMCHC (RBC) [Mass/Vol]33.8 g/dLRegency Hospital Cleveland WestMCV (RBC) [Entitic vol]95.7 [facility] Monocytes (Bld) [#/Vol]0.8 10*3/uLHigh0.0 - 0.7 10*3/[facility] Monocytes/100 WBC (Bld)12.5 %High0.0 - 10.0 %[facility] WestNeutrophils (Bld) [#/Vol]3.5 10*3/uL1.4 - 6.5 10*3/[facility] ClinicNeutrophils/100 WBC (Bld)58.9 %37.0 - 75.0 %[facility] [place] WestPlatelet mean volume (Bld) [Entitic vol]6.8 fLLowRegency Hospital Cleveland WestPlatelets (Bld) [#/Vol]415 10*3/rTKpjo225 - 400 10*3/[facility] ClinicRBC (Bld) [#/Vol]3.14 10*6/uLLow4.0 - 5.4 10*6/[facility] ClinicWBC (Bld) [#/Vol]6.0 10*3/uL3.6 - 11.0 10*3/[facility] No Panel Informationon [id number] BASOPHIL COUNT0.0 10*3/uL0.0 - 0.2 10*3/[facility] [facility] ClinicInterpretation and review of laboratory results AbnormalWilson Memorial HospitalGFR COMMENTAverage GFR for 70+ years old = 75.[facility] WestInterpretation and review of laboratory resultsAbnormalAMercy Memorial HospitalBMP FASTINGon 02-03-2024 Anion gap [Moles/Vol]2 mmol/LLow8-16[facility] HospitalCalcium [Mass/Vol]9.1 mg/dLNormal8.4-10.2AThe Valley Hospital HospitalChloride [Moles/Vol]104 mmol/LNormal 98-107[facility] HospitalComment on above:Result Comment: Please note: Triglyceride levels of 600mg/dL or higher may positively bias chlorideresults by approximately 2.1 mmolCO2 [Moles/Vol]29 mmol/IGkbcwa98-78QsmhaSaint Joseph Memorial Hospital Creatinine [Mass/Vol]0.90 mg/dLNormal0.7-1.2AMeadowbrook Rehabilitation Hospital. GFR, Rbpxpsmh47 ml/min/1.73sq.mNormalSaint Joseph Memorial HospitalEST. GFR,Non Etvdncwo33 ml/min/1.73sq.mNThe University of Toledo Medical CenterGFR Information Average GFR for 70+ years old = 75.NormalSaint Joseph Memorial HospitalComment on above: Result Comment: Chronic Kidney disease, GFR = <60. Kidney failure, GFR = <15. The GFR estimate is not adjusted for extreme body surface area or acute process, nor has it been validated for women or ethnic groups other than and .Glucose [Mass/Vol]100 mg/cDIrgbvs78-977DowapSaint Joseph Memorial HospitalComment on above:Result Comment: NORMAL <100 mg/dL PREDIABETES 101-126 mg/dL DIABETES 126 mg/dL or higherPotassium [Moles/Vol]4.4 mmol/LNormal3.5-5.1AHodgeman County Health Centerodium [Moles/Vol]135 mmol/ONva805-207GnvjySaint Joseph Memorial HospitalUrea nitrogen [Mass/Vol]17 mg/dLNormal7-20[facility] REACTIVE PROTEINon [id number] [Mass/Vol]21.9 mg/LHigh0-10AKingman Community HospitalCBCon 02-03-2024 ABSOLUTE BAS0.1 10*3/uLNormal0.0-0.2AKingman Community HospitalABSOLUTE EOS0.2 10*3/uLNormal0.0-0.7AKingman Community HospitalABSOLUTE NEUTROPHIL COUNT3.6 10*3/uL Normal1.4-6.5AKingman Community HospitalBasophils/100 WBC (Bld)1.2 %Normal0.0-2.0 [facility] HospitalDTYPEAUTO DIFFNormalAKingman Community HospitalEosinophils/100 WBC (Bld)3.4 %Normal0.0-11.0[facility] HospitalLymphocytes (Bld) [#/Vol]1.6 10*3/uLNormal1.2-3.4AKingman Community HospitalLymphocytes/100 WBC (Bld)26.1 %Normal 20.0-55.0[facility] HospitalMonocytes (Bld) [#/Vol]0.7 10*3/uLNormal0.0-0.7 AviGuthrie Corning HospitalMonocytes/100 WBC (Bld)11.8 %High0.0-10.0[facility] HospitalNeutrophils/100 WBC (Bld)57.5 %Tfooqx57.0-75.0[facility] Erythrocyte distribution width (RBC) [Ratio]15.0 %High11.5-14.5AKingman Community HospitalHematocrit (Bld) [Volume fraction]31.8 %Low36.0-48.0[facility] HospitalHemoglobin (Bld) [Mass/Vol]10.7 g/dLLow12.0-16.0[facility] MCH (RBC) [Entitic mass]32.3 tmAjjfzw75.0-35.0[facility] MemorialHC (RBC) [Mass/Vol]33.7 g/wVHyawqc73.0-37.0[facility] HospitalMCV (RBC) [Entitic vol] 95.8 bYEyxuvy24.0-100.0[facility] HospitalPlatelet mean volume (Bld) [Entitic vol]6.4 fLLow7.4-11.0[facility] HospitalPlatelets (Bld) [#/Vol]472 10*3/uL Akez530-898RkltzSaint Joseph Memorial HospitalRBC (Bld) [#/Vol]3.31 10*6/uLLow4.0-5.4AKingman Community HospitalWBC (Bld) [#/Vol]6.3 10*3/uLNormal3.6-11.0[facility] Laboratory - Chemistry and Chemistry - challengeon [id number] Ql (U) NegativeNEGATIVERegency Hospital Cleveland WestpH (U)7.0 [pH]5.0 - 7.0[facility] Specific gravity (U) [Rel density]1.0151.010 - 1.025[facility] [place] Urobilinogen (U) [Mass/Vol]0.2 mg/dLRegency Hospital Cleveland WestAnion gap [Moles/Vol]2 mmol/[facility] HospitalCalcium [Mass/Vol]9.1 mg/dLRegency Hospital [place] Chloride [Moles/Vol]104 mmol/[facility] SystemCO2 [Moles/Vol]29 mmol/[facility] HospitalCreatinine [Mass/Vol]0.90 mg/dLRegency Hospital Cleveland WestCRP [Mass/Vol] 21.9 mg/LHigh0 - 10 MG/[facility] HospitalGFR/1.73 sq M.predicted among blacks MDRD (S/P/Bld) [Vol rate/Area]77 mL/min/{1.73_m2}ml/min/1.73sq.[facility] Medical CenterGFR/1.73 sq M.predicted among non-blacks MDRD (S/P/Bld) [Vol rate/Area]64 mL/min/{1.73_m2}ml/min/1.73sq.[facility] Medical CenterGlucose post fast [Mass/Vol] 100 mg/dLRegency Hospital Cleveland WestPotassium [Moles/Vol]4.4 mmol/[facility] Sodium [Moles/Vol]135 mmol/[facility] HospitalUrea nitrogen [Mass/Vol]17 mg/dLRegency Hospital Cleveland WestLaboratory - Hematology and Cell countson 02-03-2024 Hemoglobin Ql (U)NegativeNEGATIVERegency Hospital Cleveland WestBasophils/100 WBC (Bld)1.2 % 0.0 - 2.0 %[facility] WestDifferential cell count method Nom (Bld)AUTO DIFF% [facility] WestEosinophils (Bld) [#/Vol]0.2 10*3/uL0.0 - 0.7 10*3/uLRegency Hospital Cleveland WestEosinophils/100 WBC (Bld)3.4 %0.0 - 11.0 %[facility] Erythrocyte distribution width (RBC) [Ratio]15.0 %High11.5 - 14.5 %[facility] WestHematocrit (Bld) [Volume fraction]31.8 %Low36.0 - 48.0 %[facility] WestHemoglobin (Bld) [Mass/Vol]10.7 g/dLLowRegency Hospital Cleveland WestLymphocytes (Bld) [#/Vol]1.6 10*3/uL1.2 - 3.4 10*3/[facility] ClinicLymphocytes/100 WBC (Bld)26.1 %20.0 - 55.0 %[facility] WestMCH (RBC) [Entitic mass]32.3 pg26.0 - 35.0 PGAUK HealthcareMCHC (RBC) [Mass/Vol]33.7 g/dLRegency Hospital Cleveland WestMCV (RBC) [Entitic vol]95.8 [facility] HospitalMonocytes (Bld) [#/Vol]0.7 10*3/uL 0.0 - 0.7 10*3/[facility] ClinicMonocytes/100 WBC (Bld)11.8 %High0.0 - 10.0 %[facility] WestNeutrophils (Bld) [#/Vol]3.6 10*3/uL1.4 - 6.5 10*3/[facility] ClinicNeutrophils/100 WBC (Bld)57.5 %37.0 - 75.0 %[facility] Platelet mean volume (Bld) [Entitic vol]6.4 fLMiddletown HospitalPlatelets (Bld) [#/Vol]472 10*3/tCTlgl640 - 400 10*3/[facility] ClinicRBC (Bld) [#/Vol]3.31 10*6/uLLow4.0 - 5.4 10*6/[facility] ClinicWBC (Bld) [#/Vol]6.3 10*3/uL3.6 - 11.0 10*3/[place] ClinicLaboratory - Specimen informationon [id number] (U)CLEARCLEARAUK HealthcareColor (U)YELLOWYELSamaritan North Health CenterLaboratory - Urinalysison [id number] Test strip (U) [Mass/Vol]NegativeNEGATIVE mg/dlRegency Hospital Cleveland WestKetones (U) [Mass/Vol] NegativeNEGATIVE mg/dlRegency Hospital Cleveland WestLeukocyte esterase Test strip Ql (U) NegativeNEGATIVERegency Hospital Cleveland WestNitrite Ql (U)NegativeNEGATIVERegency Hospital Cleveland WestProtein Ql (U)NegativeNEGATIVE mg/dlRegency Hospital Cleveland WestNo Panel Informationon [id number] HealthcareGFR COMMENTAverage GFR for 70+ years old = 75.[facility] WestInterpretation and review of laboratory results AbnormalWilson Memorial HospitalABSOLUTE BASOPHIL COUNT0.1 10*3/uL 0.0 - 0.2 10*3/uLRegency Hospital Cleveland WestInterpretation and review of laboratory resultsAbnormalAMercy Memorial HospitalURINE MACROSCOPICon [id number] Ql (U)NegativeNormalNEGATIVESaint Joseph Memorial HospitalClarity (U)CLEARNormalCLEARSaint Joseph Memorial HospitalColor (U)YELLOWNormalYELLOWSaint Joseph Memorial HospitalGlucose Ql (U)NegativeNormalNEGATIVESaint Joseph Memorial HospitalpH (U) 7.0 [pH]Normal5.0-7.0[facility] HospitalURINE HEMOGLOBINNegativeNormal NEGATIVESaint Joseph Memorial HospitalURINE KETONENegativeNormalNEGATIVESaint Joseph Memorial HospitalURINE LEUKOTESTNegativeNormalNEGATIVESelect [facility] [place] NITRATESNegativeNormalNEGATIVESelect [facility] [place] SPEC GRAVITY1.015 Normal1.010-1.025[facility] [place] TOTAL PROTEINNegativeNormalNEGATIVE [facility] HospitalUrobilinogen Qn (U)0.2 {Monique'U}/dLNormal0.2-1.0[facility] HospitalBMP FASTINGon [id number] gap [Moles/Vol]1 mmol/LLow8-16 [facility] HospitalComment on above:Performed By: #### ACBC #### Testing performed at [place] [place], [place] [address]Frphtst [Mass/Vol]8.9 mg/dLNormal8.4-10.2AKingman Community Hospital Comment on above:Performed By: #### ACBC #### Testing performed at [address] [address]Jehtflkc [Moles/Vol]103 mmol/SNxkvfy86-954CnfvbSaint Joseph Memorial HospitalComment on above:Result Comment: Please note: Triglyceride levels of 600mg/dL or higher may positively bias chlorideresults by approximately 2.1 mmol Performed By: #### ACBC #### Testing performed at [address] [address]PG1 [Moles/Vol]30 mmol/ORtdfjl73-01MkqmaSaint Joseph Memorial Hospital Comment on above:Performed By: #### ACBC #### Testing performed at [address] [address]Oszgktbnhy [Mass/Vol]0.90 mg/dLNormal0.7-1.2AKingman Community HospitalComment on above:Performed By: #### ACBC #### Testing performed at [address] [address]NGY. GFR, Adyshhez33 ml/min/1.73sq.[facility] HospitalComment on above:Performed By: #### ACBC #### Testing performed at [address] [address]IRL. GFR,Non Dvjezmom77 ml/min/1.73sq.[facility] HospitalComment on above:Performed By: #### ACBC #### Testing performed at [address] [address]SJM InformationAverage GFR for 70+ years old = 75.[facility] HospitalComment on above:Result Comment: Chronic Kidney disease, GFR = <60. Kidney failure, GFR = <15. The GFR estimate is not adjusted for extreme body surface area or acute process, nor has it been validated for women or ethnic groups other than and .Performed By: #### ACBC #### Testing performed at [address] [address]Oialfsi [Mass/Vol]103 mg/kRLxyd81-757BabffSaint Joseph Memorial Hospital Comment on above:Result Comment: NORMAL <100 mg/dL PREDIABETES 101-126 mg/dL DIABETES 126 mg/dL or higherPerformed By: #### ACBC #### Testing performed at [address] [address]Nvxcdkkpg [Moles/Vol]4.2 mmol/LNormal3.5-5.1AKingman Community HospitalComment on above:Performed By: #### ACBC #### Testing performed at [address] [address]Zeppfe [Moles/Vol]134 mmol/YJcm252-798XacomSaint Joseph Memorial Hospital Comment on above:Performed By: #### ACBC #### Testing performed at [address] [address]Vaep nitrogen [Mass/Vol]18 mg/dLNormal7-20[facility] HospitalComment on above:Performed By: #### ACBC #### Testing performed at [address] [address]A REACTIVE PROTEINon 58-17-8424RLL [Mass/Vol]26.3 mg/LHigh0-10 [facility] HospitalComment on above:Performed By: #### ACBC #### Testing performed at [address] [address]OWPtc 45-16-9813QZFMMYBF BAS0.1 10*3/uLNormal0.0-0.2AKingman Community HospitalComment on above:Performed By: #### ACBC #### Testing performed at [address] [address]QGKCCSRS EOS0.2 10*3/uLNormal0.0-0.7AKingman Community Hospital Comment on above:Performed By: #### ACBC #### Testing performed at [address] [address]IOWNPFRY NEUTROPHIL COUNT3.4 10*3/uLNormal1.4-6.5AThe Valley Hospital HospitalComment on above:Performed By: #### ACBC #### Testing performed at [address] [address]Shpbmhhpm/100 WBC (Bld)0.9 %Normal0.0-2.0[facility] Comment on above:Performed By: #### ACBC #### Testing performed at [address] [address]ALJGQKELU DIFFNormalAThe Valley Hospital HospitalComment on above: Performed By: #### ACBC #### Testing performed at [address] [address]Hnswnjgetfo/100 WBC (Bld)3.7 %Normal0.0-11.0[facility] HospitalComment on above:Performed By: #### ACBC #### Testing performed at [address] [address]Jgaaqnacrvy (Bld) [#/Vol]1.6 10*3/uLNormal1.2-3.4AThe Valley Hospital HospitalComment on above:Performed By: #### ACBC #### Testing performed at [address] [address]Hghgcvwsxmn/100 WBC (Bld)26.5 %Fxotda09.0-55.0[facility] HospitalComment on above:Performed By: #### ACBC #### Testing performed at [address] [address]Skpmsukma (Bld) [#/Vol]0.8 10*3/uLHigh0.0-0.7AThe Valley Hospital HospitalComment on above:Performed By: #### ACBC #### Testing performed at [address] [place] [address]Qzkmsfrwc/100 WBC (Bld)12.8 %High0.0-10.0[facility] Comment on above:Performed By: #### ACBC #### Testing performed at [address] [address]Monyubwelus/100 WBC (Bld)56.1 %Edxwgq80.0-75.0[facility] HospitalComment on above:Performed By: #### ACBC #### Testing performed at [address] [address]Fubpsllrikr distribution width (RBC) [Ratio]15.2 %High11.5-14.5 [facility] HospitalComment on above:Performed By: #### ACBC #### Testing performed at [address] [address]Cjsmcopcbb (Bld) [Volume fraction]31.1 %Low36.0-48.0[facility] HospitalComment on above:Performed By: #### ACBC #### Testing performed at [address] [address]Urwctvhygg (Bld) [Mass/Vol]10.5 g/dLLow12.0-16.0[facility] HospitalComment on above:Performed By: #### ACBC #### Testing performed at [address] [address]XMJ (RBC) [Entitic mass]32.4 lpZmrpal92.0-35.0[facility] HospitalComment on above:Performed By: #### ACBC #### Testing performed at [address] [address]VOWX (RBC) [Mass/Vol]33.8 g/gLZcavit54.0-37.0[facility] HospitalComment on above:Performed By: #### ACBC #### Testing performed at [address] [address]MQK (RBC) [Entitic vol]95.9 vAVpjfyg57.0-100.0[facility] HospitalComment on above:Performed By: #### ACBC #### Testing performed at [address] [address]Vexwakri mean volume (Bld) [Entitic vol]6.5 fLLow7.4-11.0[facility] HospitalComment on above:Performed By: #### ACBC #### Testing performed at [address] [address]Iazagvjsn (Bld) [#/Vol]429 10*3/jIAzvm741-652XpziqSaint Joseph Memorial HospitalComment on above:Performed By: #### ACBC #### Testing performed at [address] [address]ICW (Bld) [#/Vol]3.24 10*6/uLLow4.0-5.4AKingman Community Hospital Comment on above:Performed By: #### ACBC #### Testing performed at [address] [address]OQD (Bld) [#/Vol]6.0 10*3/uLNormal3.6-11.0[facility] HospitalComment on above:Performed By: #### ACBC #### Testing performed at [address] [address]Uieysuidag - Chemistry and Chemistry - challengeon 02-02-2024 Anion gap [Moles/Vol]1 mmol/LLowAvita Health SystemCalcium [Mass/Vol]8.9 mg/dL Avita Health SystemChloride [Moles/Vol]103 mmol/LAvita Health SystemCO2 [Moles/Vol]30 mmol/LAvita Health SystemCreatinine [Mass/Vol]0.90 mg/dLEating Recovery Center A Behavioral Hospitalta Health SystemCRP [Mass/Vol]26.3 mg/LHigh0 - 10 MG/LAvita Health SystemGFR/1.73 sq M.predicted among blacks MDRD (S/P/Bld) [Vol rate/Area]77 mL/min/{1.73_m2} ml/min/1.73sq.[facility] Medical CenterGFR/1.73 sq M.predicted among non-blacks MDRD (S/P/Bld) [Vol rate/Area]64 mL/min/{1.73_m2}ml/min/1.73sq.[facility] Glucose post fast [Mass/Vol]103 mg/dLTrumbull Memorial HospitalPotassium [Moles/Vol]4.2 mmol/[facility] SystemSodium [Moles/Vol]134 mmol/[facility] HospitalUrea nitrogen [Mass/Vol]18 mg/dLRegency Hospital Cleveland WestLaboratory - Hematology and Cell countson 87-80-4026Vkjzswfip/100 WBC (Bld)0.9 %0.0 - 2.0 % [facility] WestDifferential cell count method Nom (Bld)AUTO DIFF%[facility] WestEosinophils (Bld) [#/Vol]0.2 10*3/uL0.0 - 0.7 10*3/uLRegency Hospital Cleveland WestEosinophils/100 WBC (Bld)3.7 %0.0 - 11.0 %[facility] WestErythrocyte distribution width (RBC) [Ratio]15.2 %High11.5 - 14.5 %[facility] Hematocrit (Bld) [Volume fraction]31.1 %Low36.0 - 48.0 %[facility] Hemoglobin (Bld) [Mass/Vol]10.5 g/dLLowRegency Hospital Cleveland WestLymphocytes (Bld) [#/Vol]1.6 10*3/uL1.2 - 3.4 10*3/uLRegency Hospital Cleveland WestLymphocytes/100 WBC (Bld) 26.5 %20.0 - 55.0 %[facility] WestMCH (RBC) [Entitic mass]32.4 pg26.0 - 35.0 PGAUK HealthcareMCHC (RBC) [Mass/Vol]33.8 g/dLRegency Hospital Cleveland WestMCV (RBC) [Entitic vol]95.9 [facility] HospitalMonocytes (Bld) [#/Vol]0.8 10*3/uLHigh0.0 - 0.7 10*3/[facility] ClinicMonocytes/100 WBC (Bld)12.8 %High0.0 - 10.0 % [facility] WestNeutrophils (Bld) [#/Vol]3.4 10*3/uL1.4 - 6.5 10*3/[facility] ClinicNeutrophils/100 WBC (Bld)56.1 %37.0 - 75.0 %[facility] Platelet mean volume (Bld) [Entitic vol]6.5 fLLowRegency Hospital Cleveland WestPlatelets (Bld) [#/Vol]429 10*3/hSVzoq761 - 400 10*3/[facility] Osteopathic ClinicRBC (Bld) [#/Vol]3.24 10*6/uLLow4.0 - 5.4 10*6/[facility] ClinicWBC (Bld) [#/Vol]6.0 10*3/uL3.6 - 11.0 10*3/[facility] Osteopathic ClinicNo Panel Informationon 06-06-0991FVZ COMMENTAverage GFR for 70+ years old = 75.[facility] WestInterpretation and review of laboratory resultsAbRochester Regional Health ABSOLUTE BASOPHIL COUNT0.1 10*3/uL0.0 - 0.2 10*3/[facility] Interpretation and review of laboratory resultsAbRochester Regional HealthBMP FASTINGon 77-80-5487Wjujs gap [Moles/Vol]2 mmol/LLow8-16[facility] HospitalCalcium [Mass/Vol]8.9 mg/dLNormal8.4-10.2AKingman Community Hospital Chloride [Moles/Vol]103 mmol/RAxdrtg46-398NrzhtSaint Joseph Memorial HospitalComment on above:Result Comment: Please note: Triglyceride levels of 600mg/dL or higher may positively bias chlorideresults by approximately 2.1 mmolCO2 [Moles/Vol]28 mmol/JNikzhr25-76WaveoSaint Joseph Memorial HospitalCreatinine [Mass/Vol]0.90 mg/dLNormal 0.7-1.2AKingman Community HospitalEST. GFR, Qzfiapjb63 ml/min/1.73sq.mNormal [facility] HospitalEST. GFR,Non Uhrrmxvq44 ml/min/1.73sq.mNormalSaint Joseph Memorial HospitalGFR InformationAverage GFR for 70+ years old = 75.NormalSaint Joseph Memorial HospitalComment on above:Result Comment: Chronic Kidney disease, GFR = <60. Kidney failure, GFR = <15. The GFR estimate is not adjusted for extreme body surface area or acute process, nor has it been validated for women or ethnic groups other than and .Glucose [Mass/Vol]98 mg/bKVvezud76-038PsnhiSaint Joseph Memorial HospitalComment on above:Result Comment: NORMAL <100 mg/dL PREDIABETES 101-126 mg/dL DIABETES 126 mg/dL or higherPotassium [Moles/Vol]4.4 mmol/LNormal3.5-5.1AHodgeman County Health Centerodium [Moles/Vol]133 mmol/UXze675-353KuwyuSaint Joseph Memorial HospitalUrea nitrogen [Mass/Vol]14 mg/dLNormal7-20[facility] REACTIVE PROTEINon 56-64-6078RNX [Mass/Vol]26.1 mg/LHigh0-10AKingman Community HospitalCBCon 02-01-2024 ABSOLUTE BAS0.1 10*3/uLNormal0.0-0.2AKingman Community HospitalABSOLUTE EOS0.1 10*3/uLNormal0.0-0.7AKingman Community HospitalABSOLUTE NEUTROPHIL COUNT3.0 10*3/uL Normal1.4-6.5AKingman Community HospitalBasophils/100 WBC (Bld)1.1 %Normal0.0-2.0 [facility] HospitalDTYPEAUTO DIFFNormalAKingman Community HospitalEosinophils/100 WBC (Bld)2.6 %Normal0.0-11.0[facility] HospitalLymphocytes (Bld) [#/Vol]1.7 10*3/uLNormal1.2-3.4AKingman Community HospitalLymphocytes/100 WBC (Bld)28.9 %Normal 20.0-55.0[facility] HospitalMonocytes (Bld) [#/Vol]0.9 10*3/uLHigh0.0-0.7 [facility] HospitalMonocytes/100 WBC (Bld)15.1 %High0.0-10.0[facility] HospitalNeutrophils/100 WBC (Bld)52.3 %Lqkxjf86.0-75.0[facility] Erythrocyte distribution width (RBC) [Ratio]14.8 %High11.5-14.5AKingman Community HospitalHematocrit (Bld) [Volume fraction]31.4 %Low36.0-48.0[facility] HospitalHemoglobin (Bld) [Mass/Vol]10.6 g/dLLow12.0-16.0[facility] MCH (RBC) [Entitic mass]32.4 cjQkqdov64.0-35.0[facility] MemorialHC (RBC) [Mass/Vol]33.9 g/rJSquhbu33.0-37.0[facility] HospitalMCV (RBC) [Entitic vol] 95.5 iFVymbfn75.0-100.0[facility] HospitalPlatelet mean volume (Bld) [Entitic vol]6.4 fLLow7.4-11.0[facility] HospitalPlatelets (Bld) [#/Vol]479 10*3/uL Zkmg756-110KpckxSaint Joseph Memorial HospitalRBC (Bld) [#/Vol]3.29 10*6/uLLow4.0-5.4AKingman Community HospitalWBC (Bld) [#/Vol]5.8 10*3/uLNormal3.6-11.0[facility] Laboratory - Chemistry and Chemistry - challengeon 38-05-2485Qdvob gap [Moles/Vol]2 mmol/LLowAEast [facility] Hospital SystemCalcium [Mass/Vol]8.9 mg/dLMemorial Hospital SystemChloride [Moles/Vol]103 mmol/LAvita Health SystemCO2 [Moles/Vol]28 mmol/L [facility] SystemCreatinine [Mass/Vol]0.90 mg/dLMemorial Hospital SystemCRP [Mass/Vol]26.1 mg/LHigh0 - 10 MG/[facility] SystemGFR/1.73 sq M.predicted among blacks MDRD (S/P/Bld) [Vol rate/Area]77 mL/min/{1.73_m2}ml/min/1.73sq.m [facility]vi Health SystemGFR/1.73 sq M.predicted among non-blacks MDRD (S/P/Bld) [Vol rate/Area]64 mL/min/{1.73_m2}ml/min/1.73sq.mAUK HealthcareGlucose post fast [Mass/Vol]98 mg/dLRegency Hospital Cleveland WestPotassium [Moles/Vol]4.4 mmol/[facility] SystemSodium [Moles/Vol]133 mmol/LLowAUK HealthcareUrea nitrogen [Mass/Vol]14 mg/dLRegency Hospital Cleveland WestLaboratory - Hematology and Cell countson 40-77-1851Xahzfvusy/100 WBC (Bld)1.1 %0.0 - 2.0 %[facility] WestDifferential cell count method Nom (Bld)AUTO DIFF%[facility] WestEosinophils (Bld) [#/Vol]0.1 10*3/uL0.0 - 0.7 10*3/uLRegency Hospital Cleveland WestEosinophils/100 WBC (Bld) 2.6 %0.0 - 11.0 %[facility] WestErythrocyte distribution width (RBC) [Ratio] 14.8 %High11.5 - 14.5 %[facility] WestHematocrit (Bld) [Volume fraction]31.4 %Low36.0 - 48.0 %[facility] WestHemoglobin (Bld) [Mass/Vol]10.6 g/dLLowRegency Hospital Cleveland WestLymphocytes (Bld) [#/Vol]1.7 10*3/uL1.2 - 3.4 10*3/uLRegency Hospital Cleveland WestLymphocytes/100 WBC (Bld)28.9 %20.0 - 55.0 %[facility] WestMCH (RBC) [Entitic mass]32.4 pg26.0 - 35.0 PGAUK HealthcareMCHC (RBC) [Mass/Vol]33.9 g/dLRegency Hospital Cleveland WestMCV (RBC) [Entitic vol]95.5 [facility] Monocytes (Bld) [#/Vol]0.9 10*3/uLHigh0.0 - 0.7 10*3/[facility] Monocytes/100 WBC (Bld)15.1 %High0.0 - 10.0 %[facility] WestNeutrophils (Bld) [#/Vol]3.0 10*3/uL1.4 - 6.5 10*3/[facility] ClinicNeutrophils/100 WBC (Bld)52.3 %37.0 - 75.0 %[facility] WestPlatelet mean volume (Bld) [Entitic vol]6.4 fLLowRegency Hospital Cleveland WestPlatelets (Bld) [#/Vol]479 10*3/mQBoet844 - 400 10*3/[facility] ClinicRBC (Bld) [#/Vol]3.29 10*6/uLLow4.0 - 5.4 10*6/[facility] ClinicWBC (Bld) [#/Vol]5.8 10*3/uL3.6 - 11.0 10*3/[facility] No Panel Informationon [id number] COMMENTAverage GFR for 70+ years old = 75. [facility] WestInterpretation and review of laboratory resultsAbnormZanesville City HospitalABSOLUTE BASOPHIL COUNT0.1 10*3/uL0.0 - 0.2 10*3/[facility] ClinicInterpretation and review of laboratory results AbnormalWilson Memorial HospitalBMP FASTINGon 72-79-4014Oedjt gap [Moles/Vol]NegativeNormal8-16[facility] HospitalCalcium [Mass/Vol]8.7 mg/dL Normal8.4-10.2AKingman Community HospitalChloride [Moles/Vol]102 mmol/UXieaez67-500 [facility] HospitalComment on above:Result Comment: Please note: Triglyceride levels of 600mg/dL or higher may positively bias chlorideresults by approximately 2.1 mmolCO2 [Moles/Vol]33 mmol/ZLrig18-45JzfrySaint Joseph Memorial Hospital Creatinine [Mass/Vol]1.10 mg/dLNormal0.7-1.2AMeadowbrook Rehabilitation Hospital. GFR, Yrlcdiqe28 ml/min/1.73sq.mNormalSaint Joseph Memorial HospitalEST. GFR,Non Tnkrlrxs18 ml/min/1.73sq.mNormalSaint Joseph Memorial HospitalGFR Information Average GFR for 70+ years old = 75.NormalSaint Joseph Memorial HospitalComment on above: Result Comment: Chronic Kidney disease, GFR = <60. Kidney failure, GFR = <15. The GFR estimate is not adjusted for extreme body surface area or acute process, nor has it been validated for women or ethnic groups other than and .Glucose [Mass/Vol]94 mg/kTVmgwpd23-628IhujtSaint Joseph Memorial HospitalComment on above:Result Comment: NORMAL <100 mg/dL PREDIABETES 101-126 mg/dL DIABETES 126 mg/dL or higherPotassium [Moles/Vol]4.5 mmol/LNormal3.5-5.1AHodgeman County Health Centerodium [Moles/Vol]134 mmol/QSlx274-014GycifSaint Joseph Memorial HospitalUrea nitrogen [Mass/Vol]12 mg/dLNormal7-20[facility] REACTIVE PROTEINon 62-72-8250CFJ [Mass/Vol]27.5 mg/LHigh0-10AKingman Community HospitalCBCon 01-31-2024 ABSOLUTE BAS0.1 10*3/uLNormal0.0-0.2AKingman Community HospitalABSOLUTE EOS0.2 10*3/uLNormal0.0-0.7AKingman Community HospitalABSOLUTE NEUTROPHIL COUNT2.5 10*3/uL Normal1.4-6.5AKingman Community HospitalBasophils/100 WBC (Bld)1.4 %Normal0.0-2.0 [facility] HospitalDTYPEAUTO DIFFNormalAKingman Community HospitalEosinophils/100 WBC (Bld)3.6 %Normal0.0-11.0[facility] HospitalLymphocytes (Bld) [#/Vol]1.5 10*3/uLNormal1.2-3.4AKingman Community HospitalLymphocytes/100 WBC (Bld)28.8 %Normal 20.0-55.0[facility] HospitalMonocytes (Bld) [#/Vol]0.8 10*3/uLHigh0.0-0.7 AviGuthrie Corning HospitalMonocytes/100 WBC (Bld)16.5 %High0.0-10.0[facility] HospitalNeutrophils/100 WBC (Bld)49.7 %Ypaetn87.0-75.0[facility] Erythrocyte distribution width (RBC) [Ratio]14.9 %High11.5-14.5AKingman Community HospitalHematocrit (Bld) [Volume fraction]29.3 %Low36.0-48.0[facility] HospitalHemoglobin (Bld) [Mass/Vol]10.0 g/dLLow12.0-16.0[facility] MCH (RBC) [Entitic mass]32.5 rmEmtqcf75.0-35.0[facility] MemorialHC (RBC) [Mass/Vol]34.1 g/dGPxtdpj27.0-37.0[facility] MemorialV (RBC) [Entitic vol] 95.2 oPXdrpbe14.0-100.0[facility] HospitalPlatelet mean volume (Bld) [Entitic vol]6.3 fLLow7.4-11.0[facility] HospitalPlatelets (Bld) [#/Vol]439 10*3/uL Lcxd994-219LlbuqSaint Joseph Memorial HospitalRBC (Bld) [#/Vol]3.08 10*6/uLLow4.0-5.4AKingman Community HospitalWBC (Bld) [#/Vol]5.1 10*3/uLNormal3.6-11.0[facility] LIPASE,SERUMon 07-71-5474TRAFXD,SERUM43 U/OCxyqlf98-679PlydvSaint Joseph Memorial Hospital LIVER PANELon 89-06-1139Pmurhhr [Mass/Vol]3.0 g/dLLow3.5-5.0[facility] HospitalALP [Catalytic activity/Vol]107 U/QXygppf87-824Ddbwr Callery HospitalALT [Catalytic activity/Vol]13 U/LNormal<35Avita Callery HospitalAST [Catalytic activity/Vol]26 U/LHzyspo15-49Nazsw Callery HospitalBilirubin [Mass/Vol]0.2 mg/dLNormal0.2-1.3AKingman Community HospitalBilirubin.indirect [Mass/Vol]0.2 mg/dL Normal0-0.4AThe Valley Hospital HospitalProtein [Mass/Vol]6.1 g/dLLow6.3-8.2AKingman Community HospitalLaboratory - Chemistry and Chemistry - challengeon 01-31-2024 Prealbumin [Mass/Vol]11.9 mg/dLLowMemorial Hospital SystemAlbumin [Mass/Vol]3.0 g/dL LowAvi Health SystemALP [Catalytic activity/Vol]107 U/[facility] SystemALT [Catalytic activity/Vol]13 U/LNINFMemorial Hospital SystemAnion gap [Moles/Vol] NegativeAvi Health SystemAST [Catalytic activity/Vol]26 U/[facility] System Bilirubin [Mass/Vol]0.2 mg/dLMemorial Hospital SystemBilirubin.direct [Mass/Vol]0.2 mg/dLMemorial Hospital SystemCalcium [Mass/Vol]8.7 mg/dLMemorial Hospital SystemChloride [Moles/Vol]102 mmol/[facility] SystemCO2 [Moles/Vol]33 mmol/LHighMemorial Hospital SystemCreatinine [Mass/Vol]1.10 mg/dLMemorial Hospital SystemCRP [Mass/Vol]27.5 mg/L High0 - 10 MG/[facility] Health SystemGFR/1.73 sq M.predicted among blacks MDRD (S/P/Bld) [Vol rate/Area]61 mL/min/{1.73_m2}ml/min/1.73sq.[facility] GFR/1.73 sq M.predicted among non-blacks MDRD (S/P/Bld) [Vol rate/Area]51 mL/min/{1.73_m2}ml/min/1.73sq.mAEast [facility] SystemGlucose post fast [Mass/Vol]94 mg/dLAvita Health SystemLipase [Catalytic activity/Vol]43 U/L23 - 300 U/[facility] HospitalPotassium [Moles/Vol]4.5 mmol/[facility] HospitalProtein [Mass/Vol]6.1 g/dLLowGreene Memorial Hospitalodium [Moles/Vol]134 mmol/LLowAUK HealthcareUrea nitrogen [Mass/Vol]12 mg/dLRegency Hospital Cleveland WestLaboratory - Hematology and Cell countson 07-33-5661Kwpytctzy/100 WBC (Bld)1.4 %0.0 - 2.0 % [facility] WestDifferential cell count method Nom (Bld)AUTO DIFF%[facility] WestEosinophils (Bld) [#/Vol]0.2 10*3/uL0.0 - 0.7 10*3/uLRegency Hospital Cleveland WestEosinophils/100 WBC (Bld)3.6 %0.0 - 11.0 %[facility] WestErythrocyte distribution width (RBC) [Ratio]14.9 %High11.5 - 14.5 %[facility] Hematocrit (Bld) [Volume fraction]29.3 %Low36.0 - 48.0 %[facility] Hemoglobin (Bld) [Mass/Vol]10.0 g/dLLowRegency Hospital Cleveland WestLymphocytes (Bld) [#/Vol]1.5 10*3/uL1.2 - 3.4 10*3/uLRegency Hospital Cleveland WestLymphocytes/100 WBC (Bld) 28.8 %20.0 - 55.0 %[facility] WestMCH (RBC) [Entitic mass]32.5 pg26.0 - 35.0 PGAUK HealthcareMCHC (RBC) [Mass/Vol]34.1 g/dLRegency Hospital Cleveland WestMCV (RBC) [Entitic vol]95.2 [facility] HospitalMonocytes (Bld) [#/Vol]0.8 10*3/uLHigh0.0 - 0.7 10*3/uLRegency Hospital Cleveland WestMonocytes/100 WBC (Bld)16.5 %High0.0 - 10.0 % [facility] WestNeutrophils (Bld) [#/Vol]2.5 10*3/uL1.4 - 6.5 10*3/[facility] ClinicNeutrophils/100 WBC (Bld)49.7 %37.0 - 75.0 %[facility] Platelet mean volume (Bld) [Entitic vol]6.3 fLMiddletown HospitalPlatelets (Bld) [#/Vol]439 10*3/hXUabb745 - 400 10*3/[facility] ClinicRBC (Bld) [#/Vol]3.08 10*6/uLLow4.0 - 5.4 10*6/[facility] ClinicWBC (Bld) [#/Vol]5.1 10*3/uL3.6 - 11.0 10*3/[facility] ClinicNo Panel Informationon 01-31-2024 Interpretation and review of laboratory resultsAbRochester Regional HealthGFR COMMENTAverage GFR for 70+ years old = 75.[facility] Interpretation and review of laboratory resultsAbRochester Regional HealthABSOLUTE BASOPHIL COUNT0.1 10*3/uL0.0 - 0.2 10*3/[facility] ClinicInterpretation and review of laboratory resultsAbCapital District Psychiatric CenterPREALBUMINon 86-64-7092Dpmsrvoljg [Mass/Vol]11.9 mg/dLLow 17.6-36.0[facility] HospitalBMP FASTINGon 51-30-9389Bbzyh gap [Moles/Vol]3 mmol/LLow8-16[facility] HospitalCalcium [Mass/Vol]8.6 mg/dLNormal8.4-10.2 [facility] HospitalChloride [Moles/Vol]101 mmol/QYrlprt43-522ZspgtSaint Joseph Memorial HospitalComment on above:Result Comment: Please note: Triglyceride levels of 600mg/dL or higher may positively bias chlorideresults by approximately 2.1 mmol CO2 [Moles/Vol]31 mmol/ZTcqx44-43KrbjzSaint Joseph Memorial HospitalCreatinine [Mass/Vol]1.00 mg/dLNormal0.7-1.2AMeadowbrook Rehabilitation Hospital. GFR, Kdofdvda81 ml/min/1.73sq.mNormalSaint Joseph Memorial HospitalEST. GFR,Non Qrvptowv42 ml/min/1.73sq.mNormalSaint Joseph Memorial HospitalGFR InformationAverage GFR for 70+ years old = 75.NormalSaint Joseph Memorial HospitalComment on above:Result Comment: Chronic Kidney disease, GFR = <60. Kidney failure, GFR = <15. The GFR estimate is not adjusted for extreme body surface area or acute process, nor has it been validated for women or ethnic groups other than and .Glucose [Mass/Vol]93 mg/pPUqgegu27-480FvjthSaint Joseph Memorial HospitalComment on above:Result Comment: NORMAL <100 mg/dL PREDIABETES 101-126 mg/dL DIABETES 126 mg/dL or higherPotassium [Moles/Vol]4.4 mmol/LNormal3.5-5.1AHodgeman County Health Centerodium [Moles/Vol]135 mmol/IBgw840-752XodrhSaint Joseph Memorial HospitalUrea nitrogen [Mass/Vol]10 mg/dLNormal7-20[facility] REACTIVE PROTEINon 68-84-3354FDX [Mass/Vol]25.8 mg/LHigh0-10AKingman Community HospitalCBCon 01-30-2024 ABSOLUTE BAS0.1 10*3/uLNormal0.0-0.2AKingman Community HospitalABSOLUTE EOS0.2 10*3/uLNormal0.0-0.7AKingman Community HospitalABSOLUTE NEUTROPHIL COUNT2.9 10*3/uL Normal1.4-6.5AKingman Community HospitalBasophils/100 WBC (Bld)1.2 %Normal0.0-2.0 [facility] HospitalDTYPEAUTO DIFFNormalAKingman Community HospitalEosinophils/100 WBC (Bld)3.0 %Normal0.0-11.0[facility] HospitalLymphocytes (Bld) [#/Vol]1.4 10*3/uLNormal1.2-3.4AviGuthrie Corning HospitalLymphocytes/100 WBC (Bld)26.1 %Normal 20.0-55.0[facility] HospitalMonocytes (Bld) [#/Vol]0.8 10*3/uLHigh0.0-0.7 [facility] HospitalMonocytes/100 WBC (Bld)15.2 %High0.0-10.0[facility] HospitalNeutrophils/100 WBC (Bld)54.5 %Ahyuvt54.0-75.0[facility] Erythrocyte distribution width (RBC) [Ratio]15.0 %High11.5-14.5AKingman Community HospitalHematocrit (Bld) [Volume fraction]29.9 %Low36.0-48.0[facility] HospitalHemoglobin (Bld) [Mass/Vol]10.3 g/dLLow12.0-16.0[facility] MCH (RBC) [Entitic mass]32.9 khLotkiq16.0-35.0[facility] MemorialHC (RBC) [Mass/Vol]34.4 g/bSWyepkq15.0-37.0[facility] HospitalMCV (RBC) [Entitic vol] 95.6 nRHkywcb95.0-100.0[facility] HospitalPlatelet mean volume (Bld) [Entitic vol]6.3 fLLow7.4-11.0[facility] HospitalPlatelets (Bld) [#/Vol]466 10*3/uL Mdmf160-806EgqonSaint Joseph Memorial HospitalRBC (Bld) [#/Vol]3.12 10*6/uLLow4.0-5.4AKingman Community HospitalWBC (Bld) [#/Vol]5.3 10*3/uLNormal3.6-11.0[facility] Laboratory - Chemistry and Chemistry - challengeon 65-18-6060Nzebl gap [Moles/Vol]3 mmol/LLowAEast [facility] Hospital SystemCalcium [Mass/Vol]8.6 mg/dLMemorial Hospital SystemChloride [Moles/Vol]101 mmol/[facility] SystemCO2 [Moles/Vol]31 mmol/L HighRegency Hospital Cleveland WestCreatinine [Mass/Vol]1.00 mg/dLRegency Hospital Cleveland WestCRP [Mass/Vol]25.8 mg/LHigh0 - 10 MG/[facility] HospitalGFR/1.73 sq M.predicted among blacks MDRD (S/P/Bld) [Vol rate/Area]68 mL/min/{1.73_m2}ml/min/1.73sq.m [facility] SystemGFR/1.73 sq M.predicted among non-blacks MDRD (S/P/Bld) [Vol rate/Area]57 mL/min/{1.73_m2}ml/min/1.73sq.[facility] Medical CenterGlucose post fast [Mass/Vol]93 mg/dLRegency Hospital Cleveland WestPotassium [Moles/Vol]4.4 mmol/[facility] SystemSodium [Moles/Vol]135 mmol/LLoCleveland Clinic Akron General Lodi HospitalUrea nitrogen [Mass/Vol]10 mg/dLRegency Hospital Cleveland WestLaboratory - Hematology and Cell countson 76-78-2628Llbymykcf/100 WBC (Bld)1.2 %0.0 - 2.0 %[facility] WestDifferential cell count method Nom (Bld)AUTO DIFF%[facility] WestEosinophils (Bld) [#/Vol]0.2 10*3/uL0.0 - 0.7 10*3/uLRegency Hospital Cleveland WestEosinophils/100 WBC (Bld) 3.0 %0.0 - 11.0 %[facility] WestErythrocyte distribution width (RBC) [Ratio] 15.0 %High11.5 - 14.5 %[facility] WestHematocrit (Bld) [Volume fraction]29.9 %Low36.0 - 48.0 %[facility] WestHemoglobin (Bld) [Mass/Vol]10.3 g/dLLowRegency Hospital Cleveland WestLymphocytes (Bld) [#/Vol]1.4 10*3/uL1.2 - 3.4 10*3/uLRegency Hospital Cleveland WestLymphocytes/100 WBC (Bld)26.1 %20.0 - 55.0 %[facility] WestMCH (RBC) [Entitic mass]32.9 pg26.0 - 35.0 PGAUK HealthcareMCHC (RBC) [Mass/Vol]34.4 g/dLRegency Hospital Cleveland WestMCV (RBC) [Entitic vol]95.6 fLAvita Health System Monocytes (Bld) [#/Vol]0.8 10*3/uLHigh0.0 - 0.7 10*3/[facility] Monocytes/100 WBC (Bld)15.2 %High0.0 - 10.0 %[facility] WestNeutrophils (Bld) [#/Vol]2.9 10*3/uL1.4 - 6.5 10*3/[facility] ClinicNeutrophils/100 WBC (Bld)54.5 %37.0 - 75.0 %[facility] WestPlatelet mean volume (Bld) [Entitic vol]6.3 fLMiddletown HospitalPlatelets (Bld) [#/Vol]466 10*3/nKImhb098 - 400 10*3/[facility] ClinicRBC (Bld) [#/Vol]3.12 10*6/uLLow4.0 - 5.4 10*6/[facility] ClinicWBC (Bld) [#/Vol]5.3 10*3/uL3.6 - 11.0 10*3/[facility] No Panel Informationon [id number] COMMENTAverage GFR for 70+ years old = 75. [facility] WestInterpretation and review of laboratory resultsAbnormZanesville City HospitalABSOLUTE BASOPHIL COUNT0.1 10*3/uL0.0 - 0.2 10*3/[facility] ClinicInterpretation and review of laboratory results AbnormalWilson Memorial HospitalBMP FASTINGon 14-36-2963Uwued gap [Moles/Vol]3 mmol/LLow8-16[facility] HospitalCalcium [Mass/Vol]8.3 mg/dLLow 8.4-10.2AKingman Community HospitalChloride [Moles/Vol]101 mmol/JJdymom32-616JkyedSaint Joseph Memorial HospitalComment on above:Result Comment: Please note: Triglyceride levels of 600mg/dL or higher may positively bias chlorideresults by approximately 2.1 mmolCO2 [Moles/Vol]30 mmol/HWomdcr08-25MecjaSaint Joseph Memorial Hospital Creatinine [Mass/Vol]0.80 mg/dLNormal0.7-1.2AMeadowbrook Rehabilitation Hospital. GFR, Nuoriuwd05 ml/min/1.73sq.mNormalSaint Joseph Memorial HospitalEST. GFR,Non Dzltxfvt80 ml/min/1.73sq.mNThe University of Toledo Medical CenterGFR Information Average GFR for 70+ years old = 75.NormalSaint Joseph Memorial HospitalComment on above: Result Comment: Chronic Kidney disease, GFR = <60. Kidney failure, GFR = <15. The GFR estimate is not adjusted for extreme body surface area or acute process, nor has it been validated for women or ethnic groups other than and .Glucose [Mass/Vol]94 mg/dKTmkupt83-486JwvdbSaint Joseph Memorial HospitalComment on above:Result Comment: NORMAL <100 mg/dL PREDIABETES 101-126 mg/dL DIABETES 126 mg/dL or higherPotassium [Moles/Vol]4.2 mmol/LNormal3.5-5.1AHodgeman County Health Centerodium [Moles/Vol]134 mmol/UTih796-528KrusySaint Joseph Memorial HospitalUrea nitrogen [Mass/Vol]9 mg/dLNormal7-20[facility] REACTIVE PROTEINon 58-76-3973SVH [Mass/Vol]28.9 mg/LHigh0-10AKingman Community HospitalCBCon 01-29-2024 ABSOLUTE BAS0.1 10*3/uLNormal0.0-0.2AKingman Community HospitalABSOLUTE EOS0.2 10*3/uLNormal0.0-0.7AKingman Community HospitalABSOLUTE NEUTROPHIL COUNT2.6 10*3/uL Normal1.4-6.5AKingman Community HospitalBasophils/100 WBC (Bld)1.1 %Normal0.0-2.0 [facility] HospitalDTYPEAUTO DIFFNormalAKingman Community HospitalEosinophils/100 WBC (Bld)4.1 %Normal0.0-11.0[facility] HospitalLymphocytes (Bld) [#/Vol]1.3 10*3/uLNormal1.2-3.4AKingman Community HospitalLymphocytes/100 WBC (Bld)26.6 %Normal 20.0-55.0[facility] HospitalMonocytes (Bld) [#/Vol]0.7 10*3/uLNormal0.0-0.7 AviGuthrie Corning HospitalMonocytes/100 WBC (Bld)13.9 %High0.0-10.0[facility] HospitalNeutrophils/100 WBC (Bld)54.3 %Swpzzx55.0-75.0[facility] Erythrocyte distribution width (RBC) [Ratio]14.7 %High11.5-14.5AKingman Community HospitalHematocrit (Bld) [Volume fraction]29.3 %Low36.0-48.0[facility] HospitalHemoglobin (Bld) [Mass/Vol]10.0 g/dLLow12.0-16.0[facility] MCH (RBC) [Entitic mass]32.7 hfOpzzqh91.0-35.0[facility] MemorialHC (RBC) [Mass/Vol]34.3 g/mEPzqocl14.0-37.0[facility] HospitalMCV (RBC) [Entitic vol] 95.2 hJUqchly81.0-100.0[facility] HospitalPlatelet mean volume (Bld) [Entitic vol]6.4 fLLow7.4-11.0[facility] HospitalPlatelets (Bld) [#/Vol]438 10*3/uL Atqx107-966QqkwaSaint Joseph Memorial HospitalRBC (Bld) [#/Vol]3.07 10*6/uLLow4.0-5.4AKingman Community HospitalWBC (Bld) [#/Vol]4.7 10*3/uLNormal3.6-11.0[facility] Laboratory - Chemistry and Chemistry - challengeon 64-65-6482Smvpb gap [Moles/Vol]3 mmol/LLowAUK HealthcareCalcium [Mass/Vol]8.3 mg/dLLowRegency Hospital Cleveland WestChloride [Moles/Vol]101 mmol/[facility] SystemCO2 [Moles/Vol]30 mmol/[facility] HospitalCreatinine [Mass/Vol]0.80 mg/dLRegency Hospital Cleveland WestCRP [Mass/Vol]28.9 mg/LHigh0 - 10 MG/[facility] SystemGFR/1.73 sq M.predicted among blacks MDRD (S/P/Bld) [Vol rate/Area]89 mL/min/{1.73_m2}ml/min/1.73sq.m Avi Health SystemGFR/1.73 sq M.predicted among non-blacks MDRD (S/P/Bld) [Vol rate/Area]73 mL/min/{1.73_m2}ml/min/1.73sq.mAUK HealthcareGlucose post fast [Mass/Vol]94 mg/dLRegency Hospital Cleveland WestPotassium [Moles/Vol]4.2 mmol/[facility] SystemSodium [Moles/Vol]134 mmol/LLoCleveland Clinic Akron General Lodi HospitalUrea nitrogen [Mass/Vol]9 mg/dLRegency Hospital Cleveland WestLaboratory - Hematology and Cell countson 50-90-0582Gbuzjdpam/100 WBC (Bld)1.1 %0.0 - 2.0 %[facility] WestDifferential cell count method Nom (Bld)AUTO DIFF%[facility] WestEosinophils (Bld) [#/Vol]0.2 10*3/uL0.0 - 0.7 10*3/uLRegency Hospital Cleveland WestEosinophils/100 WBC (Bld) 4.1 %0.0 - 11.0 %[facility] WestErythrocyte distribution width (RBC) [Ratio] 14.7 %High11.5 - 14.5 %[facility] WestHematocrit (Bld) [Volume fraction]29.3 %Low36.0 - 48.0 %[facility] WestHemoglobin (Bld) [Mass/Vol]10.0 g/dLLowRegency Hospital Cleveland WestLymphocytes (Bld) [#/Vol]1.3 10*3/uL1.2 - 3.4 10*3/uLRegency Hospital Cleveland WestLymphocytes/100 WBC (Bld)26.6 %20.0 - 55.0 %[facility] WestMCH (RBC) [Entitic mass]32.7 pg26.0 - 35.0 PGAUK HealthcareMCHC (RBC) [Mass/Vol]34.3 g/dLRegency Hospital Cleveland WestMCV (RBC) [Entitic vol]95.2 [facility] Monocytes (Bld) [#/Vol]0.7 10*3/uL0.0 - 0.7 10*3/[facility] Monocytes/100 WBC (Bld)13.9 %High0.0 - 10.0 %[facility] WestNeutrophils (Bld) [#/Vol]2.6 10*3/uL1.4 - 6.5 10*3/[facility] ClinicNeutrophils/100 WBC (Bld)54.3 %37.0 - 75.0 %[facility] WestPlatelet mean volume (Bld) [Entitic vol]6.4 fLLowRegency Hospital Cleveland WestPlatelets (Bld) [#/Vol]438 10*3/qJUqkc295 - 400 10*3/[facility] ClinicRBC (Bld) [#/Vol]3.07 10*6/uLLow4.0 - 5.4 10*6/[facility] ClinicWBC (Bld) [#/Vol]4.7 10*3/uL3.6 - 11.0 10*3/[facility] No Panel Informationon [id number] COMMENTAverage GFR for 70+ years old = 75. [facility] WestInterpretation and review of laboratory resultsAbnormalAMercy Memorial HospitalABSOLUTE BASOPHIL COUNT0.1 10*3/uL0.0 - 0.2 10*3/[facility] ClinicInterpretation and review of laboratory results AbnormalWilson Memorial HospitalBMP FASTINGon 33-53-8078Ryqxm gap [Moles/Vol]3 mmol/LLow8-16[facility] HospitalCalcium [Mass/Vol]8.8 mg/dL Normal8.4-10.2AThe Valley Hospital HospitalChloride [Moles/Vol]100 mmol/GDeetxo15-858 [facility] HospitalComment on above:Result Comment: Please note: Triglyceride levels of 600mg/dL or higher may positively bias chlorideresults by approximately 2.1 mmolCO2 [Moles/Vol]33 mmol/MOgcg11-65TkulhSaint Joseph Memorial Hospital Creatinine [Mass/Vol]0.80 mg/dLNormal0.7-1.2AMeadowbrook Rehabilitation Hospital. GFR, Jytivygh95 ml/min/1.73sq.mNormalSaint Joseph Memorial HospitalEST. GFR,Non Phvbqqwy34 ml/min/1.73sq.mNThe University of Toledo Medical CenterGFR Information Average GFR for 70+ years old = 75.NormalSaint Joseph Memorial HospitalComment on above: Result Comment: Chronic Kidney disease, GFR = <60. Kidney failure, GFR = <15. The GFR estimate is not adjusted for extreme body surface area or acute process, nor has it been validated for women or ethnic groups other than and .Glucose [Mass/Vol]86 mg/bDAxwfzs91-380SjbidSaint Joseph Memorial HospitalComment on above:Result Comment: NORMAL <100 mg/dL PREDIABETES 101-126 mg/dL DIABETES 126 mg/dL or higherPotassium [Moles/Vol]4.4 mmol/LNormal3.5-5.1AHodgeman County Health Centerodium [Moles/Vol]136 mmol/DXsm546-812JhjotSaint Joseph Memorial HospitalUrea nitrogen [Mass/Vol]11 mg/dLNormal7-20[facility] REACTIVE PROTEINon 52-97-1810DIM [Mass/Vol]30.5 mg/LHigh0-10AKingman Community HospitalCBCon 01-28-2024 ABSOLUTE BAS0.1 10*3/uLNormal0.0-0.2AKingman Community HospitalABSOLUTE EOS0.2 10*3/uLNormal0.0-0.7AKingman Community HospitalABSOLUTE NEUTROPHIL COUNT3.0 10*3/uL Normal1.4-6.5AKingman Community HospitalBasophils/100 WBC (Bld)1.1 %Normal0.0-2.0 [facility] HospitalDTYPEAUTO DIFFNormalAKingman Community HospitalEosinophils/100 WBC (Bld)3.2 %Normal0.0-11.0[facility] HospitalLymphocytes (Bld) [#/Vol]1.3 10*3/uLNormal1.2-3.4AKingman Community HospitalLymphocytes/100 WBC (Bld)25.7 %Normal 20.0-55.0[facility] HospitalMonocytes (Bld) [#/Vol]0.6 10*3/uLNormal0.0-0.7 AviGuthrie Corning HospitalMonocytes/100 WBC (Bld)12.0 %High0.0-10.0[facility] HospitalNeutrophils/100 WBC (Bld)58.0 %Jljzdz72.0-75.0[facility] Erythrocyte distribution width (RBC) [Ratio]14.6 %High11.5-14.5AKingman Community HospitalHematocrit (Bld) [Volume fraction]31.3 %Low36.0-48.0[facility] HospitalHemoglobin (Bld) [Mass/Vol]10.6 g/dLLow12.0-16.0[facility] MCH (RBC) [Entitic mass]32.3 wpHtxpio26.0-35.0[facility] MemorialHC (RBC) [Mass/Vol]34.0 g/gIEsagyr51.0-37.0[facility] HospitalMCV (RBC) [Entitic vol] 95.0 rLYhhixo99.0-100.0[facility] HospitalPlatelet mean volume (Bld) [Entitic vol]6.5 fLLow7.4-11.0[facility] HospitalPlatelets (Bld) [#/Vol]470 10*3/uL Clxa312-958DonsjSaint Joseph Memorial HospitalRBC (Bld) [#/Vol]3.30 10*6/uLLow4.0-5.4AKingman Community HospitalWBC (Bld) [#/Vol]5.1 10*3/uLNormal3.6-11.0[facility] Laboratory - Chemistry and Chemistry - challengeon [id number] gap [Moles/Vol]3 mmol/LLowAUK HealthcareCalcium [Mass/Vol]8.8 mg/dLAvita Health SystemChloride [Moles/Vol]100 mmol/[facility] SystemCO2 [Moles/Vol]33 mmol/L HighRegency Hospital Cleveland WestCreatinine [Mass/Vol]0.80 mg/dLMemorial Hospital SystemCRP [Mass/Vol]30.5 mg/LHigh0 - 10 MG/[facility]ita [facility] SystemGFR/1.73 sq M.predicted among blacks MDRD (S/P/Bld) [Vol rate/Area]89 mL/min/{1.73_m2}ml/min/1.73sq.m [facility] SystemGFR/1.73 sq M.predicted among non-blacks MDRD (S/P/Bld) [Vol rate/Area]73 mL/min/{1.73_m2}ml/min/1.73sq.mAUK HealthcareGlucose post fast [Mass/Vol]86 mg/dLRegency Hospital Cleveland WestPotassium [Moles/Vol]4.4 mmol/[facility] SystemSodium [Moles/Vol]136 mmol/LLowAUK HealthcareUrea nitrogen [Mass/Vol]11 mg/dLRegency Hospital Cleveland WestLaboratory - Hematology and Cell countson 71-34-8528Qwybzwabk/100 WBC (Bld)1.1 %0.0 - 2.0 %[facility] WestDifferential cell count method Nom (Bld)AUTO DIFF%[facility] WestEosinophils (Bld) [#/Vol]0.2 10*3/uL0.0 - 0.7 10*3/uLRegency Hospital Cleveland WestEosinophils/100 WBC (Bld) 3.2 %0.0 - 11.0 %[facility] WestErythrocyte distribution width (RBC) [Ratio] 14.6 %High11.5 - 14.5 %[facility] WestHematocrit (Bld) [Volume fraction]31.3 %Low36.0 - 48.0 %[facility] WestHemoglobin (Bld) [Mass/Vol]10.6 g/dLLowRegency Hospital Cleveland WestLymphocytes (Bld) [#/Vol]1.3 10*3/uL1.2 - 3.4 10*3/uLRegency Hospital Cleveland WestLymphocytes/100 WBC (Bld)25.7 %20.0 - 55.0 %[facility] WestMCH (RBC) [Entitic mass]32.3 pg26.0 - 35.0 PGAUK HealthcareMCHC (RBC) [Mass/Vol]34.0 g/dLRegency Hospital Cleveland WestMCV (RBC) [Entitic vol]95.0 [facility] Monocytes (Bld) [#/Vol]0.6 10*3/uL0.0 - 0.7 10*3/[facility] Monocytes/100 WBC (Bld)12.0 %High0.0 - 10.0 %[facility] WestNeutrophils (Bld) [#/Vol]3.0 10*3/uL1.4 - 6.5 10*3/[facility] ClinicNeutrophils/100 WBC (Bld)58.0 %37.0 - 75.0 %[facility] WestPlatelet mean volume (Bld) [Entitic vol]6.5 fLLowRegency Hospital Cleveland WestPlatelets (Bld) [#/Vol]470 10*3/dKNntv332 - 400 10*3/[facility] ClinicRBC (Bld) [#/Vol]3.30 10*6/uLLow4.0 - 5.4 10*6/[facility] ClinicWBC (Bld) [#/Vol]5.1 10*3/uL3.6 - 11.0 10*3/[facility] No Panel Informationon [id number] COMMENTAverage GFR for 70+ years old = 75. [facility] WestInterpretation and review of laboratory resultsAbnormalAMercy Memorial HospitalABSOLUTE BASOPHIL COUNT0.1 10*3/uL0.0 - 0.2 10*3/[facility] ClinicInterpretation and review of laboratory results AbnormalWilson Memorial HospitalBMP FASTINGon 05-24-1564Mfrpx gap [Moles/Vol]3 mmol/LLow8-16[facility] HospitalCalcium [Mass/Vol]8.6 mg/dL Normal8.4-10.2AThe Valley Hospital HospitalChloride [Moles/Vol]102 mmol/VGfodky82-864 [facility] HospitalComment on above:Result Comment: Please note: Triglyceride levels of 600mg/dL or higher may positively bias chlorideresults by approximately 2.1 mmolCO2 [Moles/Vol]30 mmol/KNsnwim80-84CgybsSaint Joseph Memorial Hospital Creatinine [Mass/Vol]0.70 mg/dLNormal0.7-1.2AKingman Community HospitalEST. GFR, Lekgssyv626 ml/min/1.73sq.mNThe University of Toledo Medical CenterEST. GFR,Non Btwkidkt68 ml/min/1.73sq.mNThe University of Toledo Medical CenterGFR Information Average GFR for 70+ years old = 75.NormalSaint Joseph Memorial HospitalComment on above: Result Comment: Chronic Kidney disease, GFR = <60. Kidney failure, GFR = <15. The GFR estimate is not adjusted for extreme body surface area or acute process, nor has it been validated for women or ethnic groups other than and .Glucose [Mass/Vol]98 mg/nVOsujfg69-876HjmazSaint Joseph Memorial HospitalComment on above:Result Comment: NORMAL <100 mg/dL PREDIABETES 101-126 mg/dL DIABETES 126 mg/dL or higherPotassium [Moles/Vol]4.0 mmol/LNormal3.5-5.1AHodgeman County Health Centerodium [Moles/Vol]135 mmol/ZJmc398-970HebxbSaint Joseph Memorial HospitalUrea nitrogen [Mass/Vol]11 mg/dLNormal7-20[facility] HospitalC REACTIVE PROTEINon 30-75-4530BRY [Mass/Vol]28.4 mg/LHigh0-10AKingman Community HospitalCBCon 01-27-2024 ABSOLUTE BAS0.0 10*3/uLNormal0.0-0.2AKingman Community HospitalABSOLUTE EOS0.2 10*3/uLNormal0.0-0.7AKingman Community HospitalABSOLUTE NEUTROPHIL COUNT3.3 10*3/uL Normal1.4-6.5AKingman Community HospitalBasophils/100 WBC (Bld)0.9 %Normal0.0-2.0 [facility] HospitalDTYPEAUTO DIFFNormalAKingman Community HospitalEosinophils/100 WBC (Bld)3.3 %Normal0.0-11.0[facility] HospitalLymphocytes (Bld) [#/Vol]1.3 10*3/uLNormal1.2-3.4AviGuthrie Corning HospitalLymphocytes/100 WBC (Bld)23.9 %Normal 20.0-55.0[facility] HospitalMonocytes (Bld) [#/Vol]0.6 10*3/uLNormal0.0-0.7 AviGuthrie Corning HospitalMonocytes/100 WBC (Bld)11.0 %High0.0-10.0[facility] HospitalNeutrophils/100 WBC (Bld)60.9 %Maytae53.0-75.0[facility] Erythrocyte distribution width (RBC) [Ratio]14.9 %High11.5-14.5AKingman Community HospitalHematocrit (Bld) [Volume fraction]30.7 %Low36.0-48.0[facility] HospitalHemoglobin (Bld) [Mass/Vol]10.3 g/dLLow12.0-16.0[facility] MCH (RBC) [Entitic mass]32.2 lgSdhdhm35.0-35.0[facility] HospitalMCHC (RBC) [Mass/Vol]33.4 g/lFUfalcv65.0-37.0[facility] HospitalMCV (RBC) [Entitic vol] 96.3 fBIsrgdd08.0-100.0[facility] HospitalPlatelet mean volume (Bld) [Entitic vol]6.6 fLLow7.4-11.0[facility] HospitalPlatelets (Bld) [#/Vol]438 10*3/uL Emdw646-794GfacpSaint Joseph Memorial HospitalRBC (Bld) [#/Vol]3.19 10*6/uLLow4.0-5.4AKingman Community HospitalWBC (Bld) [#/Vol]5.4 10*3/uLNormal3.6-11.0[facility] Laboratory - Chemistry and Chemistry - challengeon 56-63-4435Aqfib gap [Moles/Vol]3 mmol/LLoEleanor Slater Hospital Health SystemCalcium [Mass/Vol]8.6 mg/dLMemorial Hospital SystemChloride [Moles/Vol]102 mmol/LAvita Health SystemCO2 [Moles/Vol]30 mmol/L [facility] WestCreatinine [Mass/Vol]0.70 mg/dLMemorial Hospital SystemCRP [Mass/Vol]28.4 mg/LHigh0 - 10 MG/LAvita Health SystemGFR/1.73 sq M.predicted among blacks MDRD (S/P/Bld) [Vol rate/Area]103 mL/min/{1.73_m2}ml/min/1.73sq.m [facility] SystemGFR/1.73 sq M.predicted among non-blacks MDRD (S/P/Bld) [Vol rate/Area]85 mL/min/{1.73_m2}ml/min/1.73sq.mAUK HealthcareGlucose post fast [Mass/Vol]98 mg/dLRegency Hospital Cleveland WestPotassium [Moles/Vol]4.0 mmol/[facility] SystemSodium [Moles/Vol]135 mmol/LLowAta Wilson Memorial Hospital SystemUrea nitrogen [Mass/Vol]11 mg/dLRegency Hospital Cleveland WestLaboratory - Hematology and Cell countson 60-77-6729Zlvisggxs/100 WBC (Bld)0.9 %0.0 - 2.0 %[facility] WestDifferential cell count method Nom (Bld)AUTO DIFF%[facility] WestEosinophils (Bld) [#/Vol]0.2 10*3/uL0.0 - 0.7 10*3/uLRegency Hospital Cleveland WestEosinophils/100 WBC (Bld) 3.3 %0.0 - 11.0 %[facility] WestErythrocyte distribution width (RBC) [Ratio] 14.9 %High11.5 - 14.5 %[facility] WestHematocrit (Bld) [Volume fraction]30.7 %Low36.0 - 48.0 %[facility] WestHemoglobin (Bld) [Mass/Vol]10.3 g/dLLowRegency Hospital Cleveland WestLymphocytes (Bld) [#/Vol]1.3 10*3/uL1.2 - 3.4 10*3/[facility] ClinicLymphocytes/100 WBC (Bld)23.9 %20.0 - 55.0 %[facility] WestMCH (RBC) [Entitic mass]32.2 pg26.0 - 35.0 PGAUK HealthcareMCHC (RBC) [Mass/Vol]33.4 g/dLRegency Hospital Cleveland WestMCV (RBC) [Entitic vol]96.3 [facility] Monocytes (Bld) [#/Vol]0.6 10*3/uL0.0 - 0.7 10*3/[facility] Monocytes/100 WBC (Bld)11.0 %High0.0 - 10.0 %[facility] WestNeutrophils (Bld) [#/Vol]3.3 10*3/uL1.4 - 6.5 10*3/[facility] ClinicNeutrophils/100 WBC (Bld)60.9 %37.0 - 75.0 %[facility] WestPlatelet mean volume (Bld) [Entitic vol]6.6 fLLowRegency Hospital Cleveland WestPlatelets (Bld) [#/Vol]438 10*3/qZIovb803 - 400 10*3/[facility] ClinicRBC (Bld) [#/Vol]3.19 10*6/uLLow4.0 - 5.4 10*6/[facility] ClinicWBC (Bld) [#/Vol]5.4 10*3/uL3.6 - 11.0 10*3/[facility] No Panel Informationon [id number] COMMENTAverage GFR for 70+ years old = 75. [facility] WestInterpretation and review of laboratory resultsAbnormalAMercy Memorial HospitalABSOLUTE BASOPHIL COUNT0.0 10*3/uL0.0 - 0.2 10*3/[facility] ClinicInterpretation and review of laboratory results AbnormalWilson Memorial HospitalBMP FASTINGon 14-68-0885Skvdy gap [Moles/Vol]1 mmol/LLow8-16[facility] HospitalCalcium [Mass/Vol]8.2 mg/dLLow 8.4-10.2[facility] HospitalChloride [Moles/Vol]102 mmol/HIbfdlc35-337CkrmoSaint Joseph Memorial HospitalComment on above:Result Comment: Please note: Triglyceride levels of 600mg/dL or higher may positively bias chlorideresults by approximately 2.1 mmolCO2 [Moles/Vol]31 mmol/UQsej54-06YllzlSaint Joseph Memorial Hospital Creatinine [Mass/Vol]0.70 mg/dLNormal0.7-1.2AMeadowbrook Rehabilitation Hospital. GFR, Pqghdsrp366 ml/min/1.73sq.mNormalSaint Joseph Memorial HospitalEST. GFR,Non Pobgnkjj38 ml/min/1.73sq.mNThe University of Toledo Medical CenterGFR Information Average GFR for 70+ years old = 75.NormalSaint Joseph Memorial HospitalComment on above: Result Comment: Chronic Kidney disease, GFR = <60. Kidney failure, GFR = <15. The GFR estimate is not adjusted for extreme body surface area or acute process, nor has it been validated for women or ethnic groups other than and .Glucose [Mass/Vol]109 mg/aTSfoa80-359RvsdnSaint Joseph Memorial HospitalComment on above:Result Comment: NORMAL <100 mg/dL PREDIABETES 101-126 mg/dL DIABETES 126 mg/dL or higherPotassium [Moles/Vol]3.9 mmol/LNormal3.5-5.1AHodgeman County Health Centerodium [Moles/Vol]134 mmol/BJck164-996TknpoSaint Joseph Memorial HospitalUrea nitrogen [Mass/Vol]12 mg/dLNormal7-20[facility] REACTIVE PROTEINon [id number] [Mass/Vol]28.4 mg/LHigh0-10AKingman Community HospitalCBCon 01-26-2024 ABSOLUTE BAS0.0 10*3/uLNormal0.0-0.2AKingman Community HospitalABSOLUTE EOS0.2 10*3/uLNormal0.0-0.7AKingman Community HospitalABSOLUTE NEUTROPHIL COUNT3.7 10*3/uL Normal1.4-6.5AKingman Community HospitalBasophils/100 WBC (Bld)0.9 %Normal0.0-2.0 [facility] HospitalDTYPEAUTO DIFFNormalAviGuthrie Corning HospitalEosinophils/100 WBC (Bld)2.8 %Normal0.0-11.0AviGuthrie Corning HospitalLymphocytes (Bld) [#/Vol]1.2 10*3/uLNormal1.2-3.4[facility] CenterLymphocytes/100 WBC (Bld)21.0 %Normal 20.0-55.0AviLos Angeles County High Desert Hospital HospitalMonocytes (Bld) [#/Vol]0.7 10*3/uLNormal0.0-0.7 [facility] HospitalMonocytes/100 WBC (Bld)11.6 %High0.0-10.0[facility] HospitalNeutrophils/100 WBC (Bld)63.7 %Vozgyn48.0-75.0[facility] Erythrocyte distribution width (RBC) [Ratio]14.6 %High11.5-14.5AKingman Community HospitalHematocrit (Bld) [Volume fraction]29.0 %Low36.0-48.0[facility] HospitalHemoglobin (Bld) [Mass/Vol]9.8 g/dLLow12.0-16.0[facility] MemorialH (RBC) [Entitic mass]32.0 slMmxnvd86.0-35.0AviStrong Memorial HospitalHC (RBC) [Mass/Vol]33.6 g/qFNhoxhd10.0-37.0[facility] MemorialV (RBC) [Entitic vol] 95.3 tEGdhtyj32.0-100.0[facility] HospitalPlatelet mean volume (Bld) [Entitic vol]6.7 fLLow7.4-11.0[facility] HospitalPlatelets (Bld) [#/Vol]440 10*3/uL Slhd279-200Mkzhh [facility] Psychiatric CenterRBC (Bld) [#/Vol]3.05 10*6/uLLow4.0-5.4[facility] Psychiatric CenterWBC (Bld) [#/Vol]5.9 10*3/uLNormal3.6-11.0[facility] Laboratory - Chemistry and Chemistry - challengeon 72-07-1301Dahnd gap [Moles/Vol]1 mmol/[facility] HospitalCalcium [Mass/Vol]8.2 mg/dLMiddletown HospitalChloride [Moles/Vol]102 mmol/[facility] HospitalCO2 [Moles/Vol]31 mmol/[facility] HospitalCreatinine [Mass/Vol]0.70 mg/dLRegency Hospital [facility] West CRP [Mass/Vol]28.4 mg/LHigh0 - 10 MG/[facility] HospitalGFR/1.73 sq M.predicted among blacks MDRD (S/P/Bld) [Vol rate/Area]103 mL/min/{1.73_m2}ml/min/1.73sq.m [facility] WestGFR/1.73 sq M.predicted among non-blacks MDRD (S/P/Bld) [Vol rate/Area]85 mL/min/{1.73_m2}ml/min/1.73sq.[facility] Medical CenterGlucose post fast [Mass/Vol]109 mg/dLTrumbull Memorial HospitalPotassium [Moles/Vol]3.9 mmol/[facility] Hospitalodium [Moles/Vol]134 mmol/[facility] HospitalUrea nitrogen [Mass/Vol]12 mg/dLRegency Hospital Cleveland WestLaboratory - Hematology and Cell countson [id number]/100 WBC (Bld)0.9 %0.0 - 2.0 %[facility] WestDifferential cell count method Nom (Bld)AUTO DIFF%[facility] WestEosinophils (Bld) [#/Vol]0.2 10*3/uL0.0 - 0.7 10*3/uLRegency Hospital Cleveland WestEosinophils/100 WBC (Bld) 2.8 %0.0 - 11.0 %[facility] WestErythrocyte distribution width (RBC) [Ratio] 14.6 %High11.5 - 14.5 %[facility] WestHematocrit (Bld) [Volume fraction]29.0 %Low36.0 - 48.0 %[facility] Health SystemHemoglobin (Bld) [Mass/Vol]9.8 g/dLLowRegency Hospital Cleveland WestLymphocytes (Bld) [#/Vol]1.2 10*3/uL1.2 - 3.4 10*3/[facility] ClinicLymphocytes/100 WBC (Bld)21.0 %20.0 - 55.0 %[facility] WestMCH (RBC) [Entitic mass]32.0 pg26.0 - 35.0 PGAUK HealthcareMCHC (RBC) [Mass/Vol]33.6 g/dLRegency Hospital Cleveland WestMCV (RBC) [Entitic vol]95.3 [facility] Monocytes (Bld) [#/Vol]0.7 10*3/uL0.0 - 0.7 10*3/[facility] Monocytes/100 WBC (Bld)11.6 %High0.0 - 10.0 %[facility] WestNeutrophils (Bld) [#/Vol]3.7 10*3/uL1.4 - 6.5 10*3/[facility] ClinicNeutrophils/100 WBC (Bld)63.7 %37.0 - 75.0 %[facility] WestPlatelet mean volume (Bld) [Entitic vol]6.7 fLLowRegency Hospital Cleveland WestPlatelets (Bld) [#/Vol]440 10*3/mLGnxr635 - 400 10*3/[facility] ClinicRBC (Bld) [#/Vol]3.05 10*6/uLLow4.0 - 5.4 10*6/[facility] ClinicWBC (Bld) [#/Vol]5.9 10*3/uL3.6 - 11.0 10*3/[facility] No Panel Informationon [id number] COMMENTAverage GFR for 70+ years old = 75. [facility] WestInterpretation and review of laboratory resultsAbnormZanesville City HospitalABSOLUTE BASOPHIL COUNT0.0 10*3/uL0.0 - 0.2 10*3/[facility] ClinicInterpretation and review of laboratory results AbnormalWilson Memorial HospitalBMP FASTINGon [id number] gap [Moles/Vol]3 mmol/LLow8-16[facility] HospitalCalcium [Mass/Vol]8.3 mg/dLLow 8.4-10.2AKingman Community HospitalChloride [Moles/Vol]101 mmol/OEtuwnt59-083FmmofSaint Joseph Memorial HospitalComment on above:Result Comment: Please note: Triglyceride levels of 600mg/dL or higher may positively bias chlorideresults by approximately 2.1 mmolCO2 [Moles/Vol]32 mmol/YTurl50-56ApgdgSaint Joseph Memorial Hospital Creatinine [Mass/Vol]0.70 mg/dLNormal0.7-1.2AMeadowbrook Rehabilitation Hospital. GFR, Bbzvtbmc925 ml/min/1.73sq.mNMagruder Hospital. GFR,Non Ftlwbzhk55 ml/min/1.73sq.[facility] Cross HospitalGFR Information Average GFR for 70+ years old = 75.NormalSaint Joseph Memorial HospitalComment on above: Result Comment: Chronic Kidney disease, GFR = <60. Kidney failure, GFR = <15. The GFR estimate is not adjusted for extreme body surface area or acute process, nor has it been validated for women or ethnic groups other than and .Glucose [Mass/Vol]92 mg/pUTryrdj21-482LbboqSaint Joseph Memorial HospitalComment on above:Result Comment: NORMAL <100 mg/dL PREDIABETES 101-126 mg/dL DIABETES 126 mg/dL or higherPotassium [Moles/Vol]3.8 mmol/LNormal3.5-5.1AHodgeman County Health Centerodium [Moles/Vol]136 mmol/BFww424-985GtygkSaint Joseph Memorial HospitalUrea nitrogen [Mass/Vol]6 mg/dLLow7-20[facility] HospitalC REACTIVE PROTEINon [id number] [Mass/Vol]33.6 mg/LHigh0-10AKingman Community HospitalCBCon 01-25-2024 ABSOLUTE BAS0.0 10*3/uLNormal0.0-0.2AKingman Community HospitalABSOLUTE EOS0.2 10*3/uLNormal0.0-0.7AKingman Community HospitalABSOLUTE NEUTROPHIL COUNT3.7 10*3/uL Normal1.4-6.5AKingman Community HospitalBasophils/100 WBC (Bld)0.7 %Normal0.0-2.0 [facility] HospitalDTYPEAUTO DIFFNormalAviGuthrie Corning HospitalEosinophils/100 WBC (Bld)2.6 %Normal0.0-11.0[facility] HospitalLymphocytes (Bld) [#/Vol]1.2 10*3/uLNormal1.2-3.4AviGuthrie Corning HospitalLymphocytes/100 WBC (Bld)21.6 %Normal 20.0-55.0[facility] HospitalMonocytes (Bld) [#/Vol]0.6 10*3/uLNormal0.0-0.7 [facility] HospitalMonocytes/100 WBC (Bld)11.3 %High0.0-10.0[facility] HospitalNeutrophils/100 WBC (Bld)63.8 %Qvjnva99.0-75.0[facility] Erythrocyte distribution width (RBC) [Ratio]14.4 %Vxntaq46.5-14.5AKingman Community HospitalHematocrit (Bld) [Volume fraction]29.4 %Low36.0-48.0[facility] HospitalHemoglobin (Bld) [Mass/Vol]10.1 g/dLLow12.0-16.0[facility] MCH (RBC) [Entitic mass]32.5 qbMdxmqo83.0-35.0[facility] MemorialHC (RBC) [Mass/Vol]34.3 g/rBKggpot99.0-37.0[facility] HospitalMCV (RBC) [Entitic vol] 94.8 zGHrdfom45.0-100.0[facility] HospitalPlatelet mean volume (Bld) [Entitic vol]6.7 fLLow7.4-11.0[facility] HospitalPlatelets (Bld) [#/Vol]440 10*3/uL Aocb121-795Qhqbi Hutchings Psychiatric CenterRBC (Bld) [#/Vol]3.10 10*6/uLLow4.0-5.4AKingman Community HospitalWBC (Bld) [#/Vol]5.7 10*3/uLNormal3.6-11.0[facility] Laboratory - Chemistry and Chemistry - challengeon 69-11-5756Sahgd gap [Moles/Vol]3 mmol/[facility] HospitalCalcium [Mass/Vol]8.3 mg/dLMiddletown HospitalChloride [Moles/Vol]101 mmol/[facility] SystemCO2 [Moles/Vol]32 mmol/[facility] HospitalCreatinine [Mass/Vol]0.70 mg/dLRegency Hospital [facility] CRP [Mass/Vol]33.6 mg/[facility] - 10 MG/[facility] HospitalGFR/1.73 sq M.predicted among blacks MDRD (S/P/Bld) [Vol rate/Area]103 mL/min/{1.73_m2}ml/min/1.73sq.m [facility] WestGFR/1.73 sq M.predicted among non-blacks MDRD (S/P/Bld) [Vol rate/Area]85 mL/min/{1.73_m2}ml/min/1.73sq.[facility] Medical CenterGlucose post fast [Mass/Vol]92 mg/dLRegency Hospital Cleveland WestPotassium [Moles/Vol]3.8 mmol/[facility] Hospitalodium [Moles/Vol]136 mmol/[facility] HospitalUrea nitrogen [Mass/Vol]6 mg/dLMiddletown HospitalLaboratory - Hematology and Cell countson [id number]/100 WBC (Bld)0.7 %0.0 - 2.0 %[facility] Differential cell count method Nom (Bld)AUTO DIFF%[facility] WestEosinophils (Bld) [#/Vol]0.2 10*3/uL0.0 - 0.7 10*3/uLRegency Hospital Cleveland WestEosinophils/100 WBC (Bld)2.6 %0.0 - 11.0 %[facility] WestErythrocyte distribution width (RBC) [Ratio]14.4 %11.5 - 14.5 %[facility] WestHematocrit (Bld) [Volume fraction] 29.4 %Low36.0 - 48.0 %[facility] WestHemoglobin (Bld) [Mass/Vol]10.1 g/dLLow [facility] WestLymphocytes (Bld) [#/Vol]1.2 10*3/uL1.2 - 3.4 10*3/[facility] ClinicLymphocytes/100 WBC (Bld)21.6 %20.0 - 55.0 %[facility] WestMCH (RBC) [Entitic mass]32.5 pg26.0 - 35.0 [facility]GAUK HealthcareMCHC (RBC) [Mass/Vol]34.3 g/dLRegency Hospital Cleveland WestMCV (RBC) [Entitic vol]94.8 [facility] HospitalMonocytes (Bld) [#/Vol]0.6 10*3/uL0.0 - 0.7 10*3/[facility] Monocytes/100 WBC (Bld)11.3 %High0.0 - 10.0 %[facility] WestNeutrophils (Bld) [#/Vol]3.7 10*3/uL1.4 - 6.5 10*3/[facility] ClinicNeutrophils/100 WBC (Bld)63.8 %37.0 - 75.0 %[facility] WestPlatelet mean volume (Bld) [Entitic vol]6.7 fLLowRegency Hospital Cleveland WestPlatelets (Bld) [#/Vol]440 10*3/hVPfql644 - 400 10*3/[facility] ClinicRBC (Bld) [#/Vol]3.10 10*6/uLLow4.0 - 5.4 10*6/[facility] ClinicWBC (Bld) [#/Vol]5.7 10*3/uL3.6 - 11.0 10*3/[facility] No Panel Informationon [id number] COMMENTAverage GFR for 70+ years old = 75. [facility] WestInterpretation and review of laboratory resultsAbnormalAMercy Memorial HospitalABSOLUTE BASOPHIL COUNT0.0 10*3/uL0.0 - 0.2 10*3/[facility] ClinicInterpretation and review of laboratory results AbnormalWilson Memorial HospitalBMP FASTINGon 91-33-7246Xbuxv gap [Moles/Vol]2 mmol/LLow8-16[facility] HospitalCalcium [Mass/Vol]8.5 mg/dL Normal8.4-10.2AKingman Community HospitalChloride [Moles/Vol]102 mmol/JLgaydx86-835 [facility] HospitalComment on above:Result Comment: Please note: Triglyceride levels of 600mg/dL or higher may positively bias chlorideresults by approximately 2.1 mmolCO2 [Moles/Vol]31 mmol/WRpwf15-18KtzbaSaint Joseph Memorial Hospital Creatinine [Mass/Vol]0.70 mg/dLNormal0.7-1.2AMeadowbrook Rehabilitation Hospital. GFR, Hbfktqoa499 ml/min/1.73sq.mNMagruder Hospital. GFR,Non Wkajwiob75 ml/min/1.73sq.[facility] Cross HospitalGFR Information Average GFR for 70+ years old = 75.NormalSaint Joseph Memorial HospitalComment on above: Result Comment: Chronic Kidney disease, GFR = <60. Kidney failure, GFR = <15. The GFR estimate is not adjusted for extreme body surface area or acute process, nor has it been validated for women or ethnic groups other than and .Glucose [Mass/Vol]104 mg/rZNluz05-911VpuxjSaint Joseph Memorial HospitalComment on above:Result Comment: NORMAL <100 mg/dL PREDIABETES 101-126 mg/dL DIABETES 126 mg/dL or higherPotassium [Moles/Vol]3.5 mmol/LNormal3.5-5.1AHodgeman County Health Centerodium [Moles/Vol]135 mmol/FFvz278-361DkzbpSaint Joseph Memorial HospitalUrea nitrogen [Mass/Vol]8 mg/dLNormal7-20[facility] HospitalC DIFFICILE DNAon 4C. DIFF 027NegativeNormalNEGATIVESaint Joseph Memorial HospitalComment on above:Result Comment: Hypervirulent C. difficile strain 027/NAP1/BI TESTING PERFORMED BY PCRPerformed By: #### GIPAN ####Testing performed [address] [place], [id number] C. DIFFNegativeNormal NEGATIVESaint Joseph Memorial HospitalComment on above:Performed By: #### GUERLINE ####Testing performed at [address], [id number] REACTIVE PROTEINon [id number] [Mass/Vol]46.5 mg/LHigh0-10AKingman Community HospitalCBCon 99-60-0465FSUDNDLW BAS0.0 10*3/uLNormal0.0-0.2AKingman Community HospitalABSOLUTE EOS0.1 10*3/uLNormal0.0-0.7AKingman Community HospitalABSOLUTE NEUTROPHIL COUNT4.2 10*3/uLNormal1.4-6.5AKingman Community HospitalBasophils/100 WBC (Bld)0.7 %Normal0.0-2.0[facility] HospitalDTYPEAUTO DIFFNormalAKingman Community HospitalEosinophils/100 WBC (Bld)2.2 %Normal0.0-11.0[facility] Lymphocytes (Bld) [#/Vol]1.2 10*3/uLNormal1.2-3.4AKingman Community Hospital Lymphocytes/100 WBC (Bld)19.3 %Low20.0-55.0[facility] HospitalMonocytes (Bld) [#/Vol]0.7 10*3/uLNormal0.0-0.7AKingman Community HospitalMonocytes/100 WBC (Bld) 10.6 %High0.0-10.0[facility] HospitalNeutrophils/100 WBC (Bld)67.2 %Normal 37.0-75.0[facility] HospitalErythrocyte distribution width (RBC) [Ratio]14.5 %Dugljp55.5-14.5AKingman Community HospitalHematocrit (Bld) [Volume fraction]29.3 % Low36.0-48.0[facility] HospitalHemoglobin (Bld) [Mass/Vol]10.1 g/dLLow 12.0-16.0[facility] (RBC) [Entitic mass]32.7 znRmiick72.0-35.0 [facility] MemorialHC (RBC) [Mass/Vol]34.4 g/bGKoyynu07.0-37.0[facility] MemorialV (RBC) [Entitic vol]95.1 gXQbattp04.0-100.0[facility] Platelet mean volume (Bld) [Entitic vol]6.8 fLLow7.4-11.0[facility] Platelets (Bld) [#/Vol]424 10*3/qCSglw397-995RlbqvSaint Joseph Memorial HospitalRBC (Bld) [#/Vol]3.08 10*6/uLLow4.0-5.4AKingman Community HospitalWBC (Bld) [#/Vol]6.2 10*3/uL Normal3.6-11.0[facility] HospitalGI PANELon 07-69-5766CVLTBHGBRL F 40/41Not detectedNormalNOT [facility] HospitalComment on above:Result Comment: Limitations: Nucleic acid may persist in vivo independently of organism viability. Additionally, some organisms may be carried asymptomatically. Detection of target organisms does not imply that the corresponding organisms are infectious or are the causative agent of clinical symptoms. Results must be correlated with clinical history, epidemiological data and other clinical information available. Testing performed at [place], [place] [address]Ufmblrsds By: #### GUERLINE ####Testing performed at [address], [id number] detectedNormalNOT [facility] Comment on above:Performed By: #### GUERLINE ####Testing performed at [address], [id number] detectedNormalNOT [facility] HospitalComment on above:Performed By: #### GUERLINE ####Testing performed at [address], [place] CRYPTOSPORIDIUMNot detectedNormalNOT DETECTEDSaint Joseph Memorial HospitalComment on above:Performed By: #### BONNIEAN ####Testing performed at [address], [id number] CAYETANENSISNot detectedNormalNOT DETECTEDAvita Callery HospitalComment on above:Performed By: #### BONNIEAN ####Testing performed at [address], [place] ENTAMOEBA HISTOLYTICANot detectedNormalNOT DETECTEDAvita Callery HospitalComment on above:Performed By: #### BONNIEAN ####Testing performed at [address], [id number] E COLINot detected NormalNOT DETECTEDAvita Callery HospitalComment on above:Performed By: #### BONNIEAN ####Testing performed at [address], [place] [address]FPTDLZIOLCLZSOW E COLINot detectedNormalNOT DETECTEDAvita Callery Hospital Comment on above:Performed By: #### GUERLINE ####Testing performed at [address], FY[address]QFSVFBVIEBPOUON E COLINot detected NormalNOT DETECTEDAvita Callery HospitalComment on above:Performed By: #### BONNIEAN ####Testing performed at [address], [place] [address]BVWRGNX LAMBLIANot detectedNormalNOT DETECTEDAvita Callery HospitalComment on above:Performed By: #### BONNIEAN ####Testing performed at [address], [id number] GI/GIINot detectedNormalNOT DETECTEDAvita Callery HospitalComment on above:Performed By: #### BONNIEAN ####Testing performed at [address], [id number] PLESIOMONAS SHIGELLOIDESNot detectedNormalNOT DETECTEDAvita Callery Hospital Comment on above:Performed By: #### BONNIEAN ####Testing performed at [address], [id number] ANot detectedNormalNOT DETECTEDAvita Callery HospitalComment on above:Performed By: #### GUERLINE ####Testing performed at [address], [id number] SALMONELLANot detectedNormalNOT DETECTEDAvita Callery HospitalComment on above: Performed By: #### GUERLINE ####Testing performed at [address], [id number] detectedNormalNOT DETECTEDAvita Callery HospitalComment on above:Performed By: #### GUERLINE ####Testing performed at [address], [id number]-PYWO TOXIN- PRODUCING E COLINot detectedNormalNOT DETECTEDAvita Callery HospitalComment on above:Performed By: #### GUERLINE ####Testing performed at [address], NW[address]WQBPJDJI/ENTEROINVASIVE E COLINot detectedNormal NOT DETECTEDAvita Callery HospitalComment on above:Performed By: #### GUERLINE ####Testing performed at [address], [place] VIBRIONot detectedNormalNOT DETECTEDAvita Callery HospitalComment on above: Performed By: #### GUERLINE ####Testing performed at [address], [id number] CHOLERAENot detectedNormalNOT DETECTEDAvita Callery HospitalComment on above:Performed By: #### GUERLINE ####Testing performed at [address], [id number] ENTEROCOLITICA Not detectedNormalNOT DETECTEDAvita Callery HospitalComment on above:Performed By: #### GUERLINE ####Testing performed at [address], [id number] - Chemistry and Chemistry - challengeon 01-24-2024 Anion gap [Moles/Vol]2 mmol/[facility] SystemCalcium [Mass/Vol]8.5 mg/dL [facility] SystemChloride [Moles/Vol]102 mmol/[facility] SystemCO2 [Moles/Vol]31 mmol/[facility] HospitalCreatinine [Mass/Vol]0.70 mg/dLRegency Hospital Cleveland WestCRP [Mass/Vol]46.5 mg/igh0 - 10 MG/[facility] SystemGFR/1.73 sq M.predicted among blacks MDRD (S/P/Bld) [Vol rate/Area]103 mL/min/{1.73_m2} ml/min/1.73sq.mAvita Health SystemGFR/1.73 sq M.predicted among non-blacks MDRD (S/P/Bld) [Vol rate/Area]85 mL/min/{1.73_m2}ml/min/1.73sq.[facility] Glucose post fast [Mass/Vol]104 mg/dLTrumbull Memorial HospitalPotassium [Moles/Vol]3.5 mmol/[facility] SystemSodium [Moles/Vol]135 mmol/LLoCleveland Clinic Akron General Lodi HospitalUrea nitrogen [Mass/Vol]8 mg/dLRegency Hospital Cleveland WestLaboratory - Hematology and Cell countson 19-17-4251Mpblqedbq/100 WBC (Bld)0.7 %0.0 - 2.0 % [facility] WestDifferential cell count method Nom (Bld)AUTO DIFF%[facility] WestEosinophils (Bld) [#/Vol]0.1 10*3/uL0.0 - 0.7 10*3/uLRegency Hospital Cleveland WestEosinophils/100 WBC (Bld)2.2 %0.0 - 11.0 %[facility] WestErythrocyte distribution width (RBC) [Ratio]14.5 %11.5 - 14.5 %[facility] WestHematocrit (Bld) [Volume fraction]29.3 %Low36.0 - 48.0 %[facility] WestHemoglobin (Bld) [Mass/Vol]10.1 g/dLMiddletown HospitalLymphocytes (Bld) [#/Vol]1.2 10*3/uL1.2 - 3.4 10*3/uLRegency Hospital Cleveland WestLymphocytes/100 WBC (Bld)19.3 %Low 20.0 - 55.0 %[facility] [place] [facility] CenterH (RBC) [Entitic mass]32.7 pg26.0 - 35.0 PG [facility] WestMCHC (RBC) [Mass/Vol]34.4 g/dLRegency Hospital Cleveland WestMCV (RBC) [Entitic vol]95.1 [facility] HospitalMonocytes (Bld) [#/Vol]0.7 10*3/uL0.0 - 0.7 10*3/uLRegency Hospital Cleveland WestMonocytes/100 WBC (Bld)10.6 %High0.0 - 10.0 %[facility] WestNeutrophils (Bld) [#/Vol]4.2 10*3/uL1.4 - 6.5 10*3/[facility] ClinicNeutrophils/100 WBC (Bld)67.2 %37.0 - 75.0 %[facility] WestPlatelet mean volume (Bld) [Entitic vol]6.8 fLLowRegency Hospital Cleveland WestPlatelets (Bld) [#/Vol]424 10*3/lDPfzs246 - 400 10*3/[facility] ClinicRBC (Bld) [#/Vol]3.08 10*6/uLLow4.0 - 5.4 10*6/[facility] ClinicWBC (Bld) [#/Vol]6.2 10*3/uL3.6 - 11.0 10*3/[facility] ClinicLaboratory - Microbiology and Antimicrobial susceptibilityon [id number] 40+41 DNA SMILEY+non-probe Ql (Stl)Not detectedNOT [facility] CenterAstrovirus subtypes 1-8 RNA SMILEY+non-probe Ql (Stl)Not detectedNOT [facility] CenterC. cayetanensis DNA SMILEY+probe Ql (Unsp spec)Not detectedNOT [facility] CenterC. coli+jejuni+upsaliensis DNA SMILEY+non-probe Ql (Stl)Not detectedNOT [facility] CenterCryptosporidium sp DNA SMILEY+probe Ql (Unsp spec)Not detectedNOT [facility] CenterE. coli enteroaggregative Kandis plasmid aggR+aatA genes SMILEY+non-probe Ql (Stl)Not detectedNOT [facility] CenterE. histolytica DNA SMILEY+probe Ql (Unsp spec)Not detectedNOT DETECTEDRegency Hospital Cleveland WestG. lamblia DNA SMILEY+non-probe Ql (Stl)Not detectedNOT DETECTEDRegency Hospital Cleveland WestP. shigelloides DNA SMILEY+non-probe Ql (Stl)Not detectedNOT DETECTEDRegency Hospital Cleveland WestRotavirus A RNA SMILEY+non-probe Ql (Stl)Not detectedNOT DETECTEDGreene Memorial Hospital. enterica+bongori DNA SMILEY+non-probe Ql (Stl)Not detectedNOT DETECTED [facility] WestV. cholerae DNA SMILEY+non-probe Ql (Stl)Not detectedNOT DETECTEDRegency Hospital Cleveland WestV. cholerae+parahaemolyticus+vulnificus DNA SMILEY+non- probe Ql (Stl)Not detectedNOT DETECTEDRegency Hospital Cleveland WestY. enterocolitica DNA SMILEY+non-probe Ql (Stl)Not detectedNOT DETECTEDRegency Hospital [facility] WestNo Panel Informationon 01-24-2024E COLI (EIEC)Not detectedNOT DETECTEDRegency Hospital [facility] E COLI (EPEC)Not detectedNOT DETECTEDRegency Hospital Cleveland WestE COLI (ETEC)Not detectedNOT DETECTEDRegency Hospital Cleveland WestNOROVIRUS RNANot detectedNOT DETECTED [facility] HospitalAPOVIRUSNot detectedNOT DETECTEDGreene Memorial HospitalHIGA TOXIN E. COLINot detectedNOT DETECTEDWilson Memorial HospitalC. Diff 027NegativeNEGATIVERegency Hospital Cleveland WestC.DIFFICILE TOXIN,PCRNegativeNEGATIVE [facility] HospitalGFR COMMENTAverage GFR for 70+ years old = 75.[facility] WestInterpretation and review of laboratory resultsAbnormal [facility] HospitalABSOLUTE BASOPHIL COUNT0.0 10*3/uL0.0 - 0.2 10*3/uLRegency Hospital Cleveland WestInterpretation and review of laboratory results AbnormalWilson Memorial HospitalBMP FASTINGon 60-90-0289Xoewc gap [Moles/Vol]1 mmol/LLow8-16[facility] HospitalCalcium [Mass/Vol]8.5 mg/dL Normal8.4-10.2AviLos Angeles County High Desert Hospital HospitalChloride [Moles/Vol]101 mmol/HEtbcoc22-963 [facility] HospitalComment on above:Result Comment: Please note: Triglyceride levels of 600mg/dL or higher may positively bias chlorideresults by approximately 2.1 mmolCO2 [Moles/Vol]33 mmol/QMsag36-23JkupcSaint Joseph Memorial Hospital Creatinine [Mass/Vol]0.60 mg/dLLow0.7-1.2AMeadowbrook Rehabilitation Hospital. GFR, Gvngbmeu987 ml/min/1.73sq.mNormalSaint Joseph Memorial HospitalEST. GFR,Non Cnerfjou310 ml/min/1.73sq.mNThe University of Toledo Medical CenterGFR InformationAverage GFR for 70+ years old = 75.NormalSaint Joseph Memorial HospitalComment on above:Result Comment: Chronic Kidney disease, GFR = <60. Kidney failure, GFR = <15. The GFR estimate is not adjusted for extreme body surface area or acute process, nor has it been validated for women or ethnic groups other than and .Glucose [Mass/Vol]96 mg/cVLuxgka67-209UtobxSaint Joseph Memorial HospitalComment on above:Result Comment: NORMAL <100 mg/dL PREDIABETES 101-126 mg/dL DIABETES 126 mg/dL or higherPotassium [Moles/Vol]3.7 mmol/LNormal3.5-5.1AHodgeman County Health Centerodium [Moles/Vol]135 mmol/GCbk912-859QpzehSaint Joseph Memorial HospitalUrea nitrogen [Mass/Vol]8 mg/dLNormal7-20[facility] REACTIVE PROTEINon 49-91-6001TDS [Mass/Vol]42.0 mg/LHigh0-10AKingman Community HospitalCBCon 01-23-2024 ABSOLUTE BAS0.0 10*3/uLNormal0.0-0.2AKingman Community HospitalABSOLUTE EOS0.1 10*3/uLNormal0.0-0.7AKingman Community HospitalABSOLUTE NEUTROPHIL COUNT4.0 10*3/uL Normal1.4-6.5AKingman Community HospitalBasophils/100 WBC (Bld)0.8 %Normal0.0-2.0 [facility] HospitalDTYPEAUTO DIFFNormalAKingman Community HospitalEosinophils/100 WBC (Bld)2.4 %Normal0.0-11.0[facility] HospitalLymphocytes (Bld) [#/Vol]1.2 10*3/uLNormal1.2-3.4AKingman Community HospitalLymphocytes/100 WBC (Bld)19.6 %Low 20.0-55.0[facility] HospitalMonocytes (Bld) [#/Vol]0.6 10*3/uLNormal0.0-0.7 AviGuthrie Corning HospitalMonocytes/100 WBC (Bld)9.8 %Normal0.0-10.0[facility] HospitalNeutrophils/100 WBC (Bld)67.4 %Opdbaj05.0-75.0[facility] Erythrocyte distribution width (RBC) [Ratio]13.9 %Aaudtn42.5-14.5AKingman Community HospitalHematocrit (Bld) [Volume fraction]29.1 %Low36.0-48.0[facility] HospitalHemoglobin (Bld) [Mass/Vol]10.0 g/dLLow12.0-16.0[facility] MCH (RBC) [Entitic mass]32.2 wqJzhjay91.0-35.0[facility] HospitalMCHC (RBC) [Mass/Vol]34.3 g/hRJgbitg31.0-37.0[facility] HospitalMCV (RBC) [Entitic vol] 94.0 qJLswvht27.0-100.0[facility] HospitalPlatelet mean volume (Bld) [Entitic vol]6.7 fLLow7.4-11.0[facility] HospitalPlatelets (Bld) [#/Vol]425 10*3/uL Tyql744-050AmduvSaint Joseph Memorial HospitalRBC (Bld) [#/Vol]3.10 10*6/uLLow4.0-5.4AKingman Community HospitalWBC (Bld) [#/Vol]6.0 10*3/uLNormal3.6-11.0[facility] LIPASE,SERUMon 72-58-2322OWZZDD,SERUM32 U/FYigomg07-906BcpjjSaint Joseph Memorial Hospital LIVER PANELon 59-10-8861Czgbrzi [Mass/Vol]2.6 g/dLLow3.5-5.0[facility]ery HospitalALP [Catalytic activity/Vol]99 U/OLmchnl27-229Quyma Callery HospitalALT [Catalytic activity/Vol]10 U/LNormal<35Av[facility] HospitalAST [Catalytic activity/Vol]25 U/IMkubjm40-80Gjdxe Callery HospitalBilirubin [Mass/Vol]0.3 mg/dLNormal0.2-1.3Av[facility] Callery HospitalBilirubin.indirect [Mass/Vol]0.3 mg/dL Normal0-0.4AThe Valley Hospital HospitalProtein [Mass/Vol]5.6 g/dLLow6.3-8.2AKingman Community HospitalLaboratory - Chemistry and Chemistry - challengeon 01-23-2024 Albumin [Mass/Vol]2.6 g/dLLowMemorial Hospital SystemALP [Catalytic activity/Vol]99 U/[facility] SystemALT [Catalytic activity/Vol]10 U/LNINFMemorial Hospital System Anion gap [Moles/Vol]1 mmol/LLowAEast [facility] SystemAST [Catalytic activity/Vol] 25 U/[facility] HospitalBilirubin [Mass/Vol]0.3 mg/dLRegency Hospital [facility] West Bilirubin.direct [Mass/Vol]0.3 mg/dLRegency Hospital Cleveland WestCalcium [Mass/Vol]8.5 mg/dLRegency Hospital Cleveland WestChloride [Moles/Vol]101 mmol/[facility] SystemCO2 [Moles/Vol]33 mmol/[facility] SystemCreatinine [Mass/Vol]0.60 mg/dLLow [facility] WestCRP [Mass/Vol]42.0 mg/LHigh0 - 10 MG/[facility] GFR/1.73 sq M.predicted among blacks MDRD (S/P/Bld) [Vol rate/Area]123 mL/min/{1.73_m2}ml/min/1.73sq.mAta Health SystemGFR/1.73 sq M.predicted among non-blacks MDRD (S/P/Bld) [Vol rate/Area]102 mL/min/{1.73_m2}ml/min/1.73sq.m [facility] SystemGlucose post fast [Mass/Vol]96 mg/dLRegency Hospital Cleveland WestLipase [Catalytic activity/Vol]32 U/L23 - 300 U/[facility] HospitalPotassium [Moles/Vol]3.7 mmol/[facility] HospitalProtein [Mass/Vol]5.6 g/dLLowGreene Memorial Hospitalodium [Moles/Vol]135 mmol/LLowAUK HealthcareUrea nitrogen [Mass/Vol]8 mg/dLRegency Hospital Cleveland WestLaboratory - Hematology and Cell countson 56-65-2311Vcjdvqpuw/100 WBC (Bld)0.8 %0.0 - 2.0 %[facility] WestDifferential cell count method Nom (Bld)AUTO DIFF%[facility] WestEosinophils (Bld) [#/Vol]0.1 10*3/uL0.0 - 0.7 10*3/uLRegency Hospital Cleveland WestEosinophils/100 WBC (Bld) 2.4 %0.0 - 11.0 %[facility] WestErythrocyte distribution width (RBC) [Ratio] 13.9 %11.5 - 14.5 %[facility] WestHematocrit (Bld) [Volume fraction]29.1 % Low36.0 - 48.0 %[facility] WestHemoglobin (Bld) [Mass/Vol]10.0 g/dLLowRegency Hospital Cleveland WestLymphocytes (Bld) [#/Vol]1.2 10*3/uL1.2 - 3.4 10*3/uLRegency Hospital Cleveland WestLymphocytes/100 WBC (Bld)19.6 %Low20.0 - 55.0 %[facility] WestMCH (RBC) [Entitic mass]32.2 pg26.0 - 35.0 PGAUK HealthcareMCHC (RBC) [Mass/Vol]34.3 g/dLRegency Hospital Cleveland WestMCV (RBC) [Entitic vol]94.0 [facility] HospitalMonocytes (Bld) [#/Vol]0.6 10*3/uL0.0 - 0.7 10*3/uLRegency Hospital Cleveland West Monocytes/100 WBC (Bld)9.8 %0.0 - 10.0 %[facility] WestNeutrophils (Bld) [#/Vol]4.0 10*3/uL1.4 - 6.5 10*3/[facility] Oste[facility] ClinicNeutrophils/100 WBC (Bld) 67.4 %37.0 - 75.0 %[facility] WestPlatelet mean volume (Bld) [Entitic vol] 6.7 fLLowRegency Hospital Cleveland WestPlatelets (Bld) [#/Vol]425 10*3/xIErmb405 - 400 10*3/[facility] Osteopathic ClinicRBC (Bld) [#/Vol]3.10 10*6/uLLow4.0 - 5.4 10*6/[facility] Osteopathic ClinicWBC (Bld) [#/Vol]6.0 10*3/uL3.6 - 11.0 10*3/[facility] Laboratory - Microbiology and Antimicrobial susceptibilityon [id number] identified Cx Nom (Unsp spec)NO PATHOGENS ISOLATEDRegency Hospital Cleveland WestLaboratory - Miscellaneous testson 51-65-7701Dajiwqx comment (Unsp spec) [Interp]01/23/2024 [facility] WestLaboratory - Urinalysison 93-80-1806Jjadhkgfh esterase+Nitrite Test strip Ql (U)PositiveRegency Hospital Cleveland WestNo Panel Informationon [id number] DESCRIPTIONURINE - OTHERBerger HospitalGFR COMMENTAverage GFR for 70+ years old = 75.[facility] WestInterpretation and review of laboratory resultsAbCapital District Psychiatric CenterABSOLUTE BASOPHIL COUNT0.0 10*3/uL0.0 - 0.2 10*3/[place] ClinicInterpretation and review of laboratory resultsAbRochester Regional HealthBMP FASTINGon 17-61-3351Fkkde gap [Moles/Vol]3 mmol/L Low8-16[facility] HospitalComment on above:Performed By: #### FEPRO ####Testing performed at [address] [address]Agtdxry [Mass/Vol]8.8 mg/dLNormal8.4-10.2AKingman Community HospitalComment on above:Performed By: #### FEPRO ####Testing performed at [address] [address]Ragcahcp [Moles/Vol]101 mmol/L Etktxy04-281KasibSaint Joseph Memorial HospitalComment on above:Result Comment: Please note: Triglyceride levels of 600mg/dL or higher may positively bias chlorideresults by approximately 2.1 mmolPerformed By: #### FEPRO ####Testing performed at [address] [address]JN1 [Moles/Vol]33 mmol/L Yhoi32-25RofiaSaint Joseph Memorial HospitalComment on above:Performed By: #### FEPRO ####Testing performed at [address] [address]Mamcwrgpwu [Mass/Vol]0.60 mg/dLLow0.7-1.2AKingman Community HospitalComment on above:Performed By: #### FEPRO ####Testing performed at [address] [address]ABU. GFR, Hdqwntoc805 ml/min/1.73sq.mNormalSaint Joseph Memorial HospitalComment on above:Performed By: #### FEPRO ####Testing performed at [address] [address]CTW. GFR,Non Cersygeo142 ml/min/1.73sq.mNOrlando Health Winnie Palmer Hospital for Women & BabiesComment on above:Performed By: #### FEPRO ####Testing performed at [address] [address]MXT InformationAverage GFR for 70+ years old = 75.[facility] Comment on above:Result Comment: Chronic Kidney disease, GFR = <60. Kidney failure, GFR = <15. The GFR estimate is not adjusted for extreme body surface area or acute process, nor has it been validated for women or ethnic groups other than and .Performed By: #### FEPRO ####Testing performed at [address] [address]Dwgqaap [Mass/Vol] 88 mg/aGVbpgml41-071ZawtlSaint Joseph Memorial HospitalComment on above:Result Comment: NORMAL <100 mg/dL PREDIABETES 101-126 mg/dL DIABETES 126 mg/dL or higherPerformed By: #### FEPRO ####Testing performed at [address] [address]Vomqktvve [Moles/Vol]3.7 mmol/LNormal3.5-5.1AThe Valley Hospital HospitalComment on above: Performed By: #### FEPRO ####Testing performed at [address] [address]Douamp [Moles/Vol]137 mmol/ZDnnrpl910-299JjzhsSaint Joseph Memorial HospitalComment on above:Performed By: #### FEPRO ####Testing performed at [place] [id number] nitrogen [Mass/Vol]8 mg/dLNormal7-20[facility] HospitalComment on above:Performed By: #### FEPRO ####Testing performed at [address] [address]Q REACTIVE PROTEINon 07-29-4020ABM [Mass/Vol]58.3 mg/L High0-10AKingman Community HospitalComment on above:Performed By: #### FEPRO ####Testing performed at [address] [address]WINin 99-71-8590QAPVCCVT BAS0.0 10*3/uLNormal0.0-0.2AThe Valley Hospital Hospital Comment on above:Performed By: #### FEPRO ####Testing performed at [address] [address]QYRNOMJS EOS0.2 10*3/uLNormal 0.0-0.7AKingman Community HospitalComment on above:Performed By: #### FEPRO ####Testing performed [address], [place] [address]PRWWCUDA NEUTROPHIL COUNT3.8 10*3/uLNormal1.4-6.5AKingman Community Hospital Comment on above:Performed By: #### FEPRO ####Testing performed at [address] [address]Gochbxlwe/100 WBC (Bld)0.9 % Normal0.0-2.0[facility] HospitalComment on above:Performed By: #### FEPRO ####Testing performed at [address], [place] [address]YCVFXEKWJ DIFFNormalAThe Valley Hospital HospitalComment on above:Performed By: #### FEPRO ####Testing performed at [address] [address]Ewuakrsjwhw/100 WBC (Bld)3.2 %Normal0.0-11.0[facility] HospitalComment on above:Performed By: #### FEPRO ####Testing performed at [address] [address]Aducfpxybok (Bld) [#/Vol]1.1 10*3/uLLow1.2-3.4AKingman Community HospitalComment on above:Performed By: #### FEPRO ####Testing performed at [address] [address]Dqhalprsxjc/100 WBC (Bld)19.3 %Low20.0-55.0[facility] HospitalComment on above:Performed By: #### FEPRO ####Testing performed at [address] [address]Sjnjkfvpl (Bld) [#/Vol] 0.5 10*3/uLNormal0.0-0.7AThe Valley Hospital HospitalComment on above:Performed By: #### FEPRO ####Testing performed at [address], [place] [address]Xzxxtovkh/100 WBC (Bld)8.5 %Normal0.0-10.0[facility] HospitalComment on above:Performed By: #### FEPRO ####Testing performed at [address] [address]Jikbbuzvool/100 WBC (Bld) 68.1 %Ilbtox19.0-75.0[facility] HospitalComment on above:Performed By: #### FEPRO ####Testing performed at [address] [address]Qboavhzfsfp distribution width (RBC) [Ratio]14.1 %Normal 11.5-14.5AKingman Community HospitalComment on above:Performed By: #### FEPRO ####Testing performed at [address] [address]Ztsqidcbjx (Bld) [Volume fraction]31.8 %Low36.0-48.0[facility] Comment on above:Performed By: #### FEPRO ####Testing performed at [address] [address]Wwtvdukplj (Bld) [Mass/Vol]10.7 g/dLLow12.0-16.0[facility] HospitalComment on above:Performed By: #### FEPRO ####Testing performed at [address] [address]QXS (RBC) [Entitic mass]31.7 fmVsbqmg20.0-35.0[facility] HospitalComment on above:Performed By: #### FEPRO ####Testing performed at [address] [address]UVCP (RBC) [Mass/Vol]33.6 g/dL Tbiisz07.0-37.0[facility] HospitalComment on above:Performed By: #### FEPRO ####Testing performed at [address] [address]WHV (RBC) [Entitic vol]94.6 tFUxvrdf59.0-100.0[facility] HospitalComment on above:Performed By: #### FEPRO ####Testing performed at [address] [address]Pcqlpzsq mean volume (Bld) [Entitic vol]7.0 fLLow7.4-11.0[facility] HospitalComment on above:Performed By: #### FEPRO ####Testing performed at [address] [address]Fokkapgwl (Bld) [#/Vol]407 10*3/sNTmar858-363Sbomz [facility] HospitalComment on above:Performed By: #### FEPRO ####Testing performed at [address] [address]SJR (Bld) [#/Vol] 3.36 10*6/uLLow4.0-5.4AThe Valley Hospital HospitalComment on above:Performed By: #### FEPRO ####Testing performed at [address] [address]JOS (Bld) [#/Vol]5.6 10*3/uLNormal3.6-11.0[facility] HospitalComment on above:Performed By: #### FEPRO ####Testing performed at [address] [address]GGOxa 70-09-9557VMX (Bld) [Velocity]71 mm/hHigh0-30[facility] HospitalComment on above:Performed By: #### FEPRO ####Testing performed at [address] [address]TKTV PROFILEon 54-24-3631LYLM ZDYBIEJ880 UG/EAUwd099-351 [facility] HospitalComment on above:Performed By: #### FEPRO ####Testing performed at [facility] [address] [address] TRANSFERRIN SATURATION,MBPXWIQMFM86 %NormalSaint Joseph Memorial HospitalComment on above:Performed By: #### FEPRO ####Testing performed at [address] [address]Yyic [Mass/Vol]37 ug/dLNormal 37-170Saint [facility] HospitalComment on above:Performed By: #### FEPRO ####Testing performed at [address] [address]Mygekhrcvq - Chemistry and Chemistry - challengeon [id number] [Mass/Vol]37 ug/dLAvita Health SystemIron binding capacity [Mass/Vol]164LowEating Recovery Center A Behavioral Hospitalta Health SystemIron saturation [Mass fraction]23 %[facility]orial [facility] SystemAnion gap [Moles/Vol]3 mmol/LLowAvita Health SystemCalcium [Mass/Vol]8.8 mg/dLAvita Health SystemChloride [Moles/Vol]101 mmol/LAvita Health SystemCO2 [Moles/Vol]33 mmol/L HighAvita Health SystemCreatinine [Mass/Vol]0.60 mg/dLLowAvita Health SystemCRP [Mass/Vol]58.3 mg/LHigh0 - 10 MG/LAvita Health SystemGFR/1.73 sq M.predicted among blacks MDRD (S/P/Bld) [Vol rate/Area]123 mL/min/{1.73_m2}ml/min/1.73sq.m [facility] SystemGFR/1.73 sq M.predicted among non-blacks MDRD (S/P/Bld) [Vol rate/Area]102 mL/min/{1.73_m2}ml/min/1.73sq.mAvita Health SystemGlucose post fast [Mass/Vol]88 mg/dLAvita Health SystemPotassium [Moles/Vol]3.7 mmol/LAvita Health SystemSodium [Moles/Vol]137 mmol/LAvita Health SystemUrea nitrogen [Mass/Vol]8 mg/dLAvita Health SystemLaboratory - Hematology and Cell countson 25-73-3637SRY (Bld) [Velocity]71 mm/hHighAvita Health SystemBasophils/100 WBC (Bld)0.9 %0.0 - 2.0 %[facility] WestDifferential cell count method Nom (Bld) AUTO DIFF%[facility] WestEosinophils (Bld) [#/Vol]0.2 10*3/uL0.0 - 0.7 10*3/[facility] ClinicEosinophils/100 WBC (Bld)3.2 %0.0 - 11.0 %[facility] WestErythrocyte distribution width (RBC) [Ratio]14.1 %11.5 - 14.5 %[facility] WestHematocrit (Bld) [Volume fraction]31.8 %Low36.0 - 48.0 %[facility] WestHemoglobin (Bld) [Mass/Vol]10.7 g/dLMiddletown Hospital Lymphocytes (Bld) [#/Vol]1.1 10*3/uLLow1.2 - 3.4 10*3/[facility] Lymphocytes/100 WBC (Bld)19.3 %Low20.0 - 55.0 %[facility] WestMCH (RBC) [Entitic mass]31.7 pg26.0 - 35.0 PGAUK HealthcareMCHC (RBC) [Mass/Vol]33.6 g/dLRegency Hospital Cleveland WestMCV (RBC) [Entitic vol]94.6 [facility] Monocytes (Bld) [#/Vol]0.5 10*3/uL0.0 - 0.7 10*3/[facility] Monocytes/100 WBC (Bld)8.5 %0.0 - 10.0 %[facility] WestNeutrophils (Bld) [#/Vol]3.8 10*3/uL1.4 - 6.5 10*3/[facility] ClinicNeutrophils/100 WBC (Bld) 68.1 %37.0 - 75.0 %[facility] WestPlatelet mean volume (Bld) [Entitic vol] 7.0 fLLowRegency Hospital Cleveland WestPlatelets (Bld) [#/Vol]407 10*3/zQTamz681 - 400 10*3/uLRegency Hospital Cleveland WestRBC (Bld) [#/Vol]3.36 10*6/uLLow4.0 - 5.4 10*6/[facility] ClinicWBC (Bld) [#/Vol]5.6 10*3/uL3.6 - 11.0 10*3/[facility] No Panel Informationon [id number] and review of laboratory results AbnormalWilson Memorial HospitalInterpretation and review of laboratory resultsAbRochester Regional HealthGFR COMMENT Average GFR for 70+ years old = 75.[facility] WestInterpretation and review of laboratory resultsAbRochester Regional HealthABSOLUTE BASOPHIL COUNT0.0 10*3/uL0.0 - 0.2 10*3/[facility] ClinicInterpretation and review of laboratory resultsAbRochester Regional HealthBMP FASTINGon 60-67-0719Ijiki gap [Moles/Vol]3 mmol/LLow8-16[facility] Calcium [Mass/Vol]8.6 mg/dLNormal8.4-10.2AKingman Community HospitalChloride [Moles/Vol]102 mmol/ZVjmxcu08-617DpbwsSaint Joseph Memorial HospitalComment on above:Result Comment: Please note: Triglyceride levels of 600mg/dL or higher may positively bias chlorideresults by approximately 2.1 mmolCO2 [Moles/Vol]32 mmol/AMkok41-61 [facility] HospitalCreatinine [Mass/Vol]0.60 mg/dLLow0.7-1.2AKingman Community HospitalEST. GFR, Uqsxrops356 ml/min/1.73sq.[facility] EST. GFR,Non Uyozuzia232 ml/min/1.73sq.mNThe University of Toledo Medical CenterGFR InformationAverage GFR for 70+ years old = 75.[facility] Comment on above:Result Comment: Chronic Kidney disease, GFR = <60. Kidney failure, GFR = <15. The GFR estimate is not adjusted for extreme body surface area or acute process, nor has it been validated for women or ethnic groups other than and .Glucose [Mass/Vol]100 mg/iPBgtrfj95-100MpafbSaint Joseph Memorial HospitalComment on above:Result Comment: NORMAL <100 mg/dL PREDIABETES 101-126 mg/dL DIABETES 126 mg/dL or higherPotassium [Moles/Vol]3.6 mmol/LNormal3.5-5.1AHodgeman County Health Centerodium [Moles/Vol]137 mmol/GAogldb673-294NsgexSaint Joseph Memorial Hospital Urea nitrogen [Mass/Vol]8 mg/dLNormal7-20[facility] HospitalCBCon 01-21-2024 ABSOLUTE BAS0.0 10*3/uLNormal0.0-0.2AKingman Community HospitalABSOLUTE EOS0.2 10*3/uLNormal0.0-0.7AKingman Community HospitalABSOLUTE NEUTROPHIL COUNT3.9 10*3/uL Normal1.4-6.5AKingman Community HospitalBasophils/100 WBC (Bld)0.6 %Normal0.0-2.0 [facility] HospitalDTYPEAUTO DIFFNormalAKingman Community HospitalEosinophils/100 WBC (Bld)3.6 %Normal0.0-11.0[facility] HospitalLymphocytes (Bld) [#/Vol]1.2 10*3/uLNormal1.2-3.4AKingman Community HospitalLymphocytes/100 WBC (Bld)19.7 %Low 20.0-55.0[facility] HospitalMonocytes (Bld) [#/Vol]0.6 10*3/uLNormal0.0-0.7 [facility] HospitalMonocytes/100 WBC (Bld)9.9 %Normal0.0-10.0[facility] HospitalNeutrophils/100 WBC (Bld)66.2 %Jpldik78.0-75.0[facility] Erythrocyte distribution width (RBC) [Ratio]14.1 %Votpxi01.5-14.5AKingman Community HospitalHematocrit (Bld) [Volume fraction]27.7 %Low36.0-48.0[facility] HospitalHemoglobin (Bld) [Mass/Vol]9.5 g/dLLow12.0-16.0[facility] MemorialH (RBC) [Entitic mass]32.6 beYdnpgs08.0-35.0[facility] MemorialHC (RBC) [Mass/Vol]34.3 g/lGLapphe62.0-37.0[facility] MemorialV (RBC) [Entitic vol] 95.0 cXVhufmu83.0-100.0[facility] HospitalPlatelet mean volume (Bld) [Entitic vol]6.9 fLLow7.4-11.0[facility] HospitalPlatelets (Bld) [#/Vol]370 10*3/uL Yepuqx087-340OqndvSaint Joseph Memorial HospitalRBC (Bld) [#/Vol]2.91 10*6/uLLow4.0-5.4AKingman Community HospitalWBC (Bld) [#/Vol]5.9 10*3/uLNormal3.6-11.0[facility] Laboratory - Chemistry and Chemistry - challengeon 51-23-2446Gyttj gap [Moles/Vol]3 mmol/LLoBigfork Valley Hospital SystemCalcium [Mass/Vol]8.6 mg/dLBradley Hospital Health SystemChloride [Moles/Vol]102 mmol/[facility] Health SystemCO2 [Moles/Vol]32 mmol/L HighRegency Hospital Cleveland WestCreatinine [Mass/Vol]0.60 mg/dLWoodwinds Health Campus System GFR/1.73 sq M.predicted among blacks MDRD (S/P/Bld) [Vol rate/Area]123 mL/min/{1.73_m2}ml/min/1.73sq.mAta Health SystemGFR/1.73 sq M.predicted among non-blacks MDRD (S/P/Bld) [Vol rate/Area]102 mL/min/{1.73_m2}ml/min/1.73sq.m [facility] SystemGlucose post fast [Mass/Vol]100 mg/dLEating Recovery Center A Behavioral Hospitalta [facility] System Potassium [Moles/Vol]3.6 mmol/[facility] Hospitalita Health SystemSodium [Moles/Vol]137 mmol/L [facility] SystemUrea nitrogen [Mass/Vol]8 mg/dLRegency Hospital Cleveland WestLaboratory - Hematology and Cell countson 51-75-1324Wxtbcxppf/100 WBC (Bld)0.6 %0.0 - 2.0 % [facility] WestDifferential cell count method Nom (Bld)AUTO DIFF%[facility] WestEosinophils (Bld) [#/Vol]0.2 10*3/uL0.0 - 0.7 10*3/uLRegency Hospital Cleveland WestEosinophils/100 WBC (Bld)3.6 %0.0 - 11.0 %[facility] WestErythrocyte distribution width (RBC) [Ratio]14.1 %11.5 - 14.5 %[facility] WestHematocrit (Bld) [Volume fraction]27.7 %Low36.0 - 48.0 %[facility] WestHemoglobin (Bld) [Mass/Vol]9.5 g/dLMiddletown HospitalLymphocytes (Bld) [#/Vol]1.2 10*3/uL1.2 - 3.4 10*3/uLRegency Hospital Cleveland WestLymphocytes/100 WBC (Bld)19.7 %Low 20.0 - 55.0 %[facility] WestMCH (RBC) [Entitic mass]32.6 pg26.0 - 35.0 PG [facility] WestMCHC (RBC) [Mass/Vol]34.3 g/dLRegency Hospital Cleveland WestMCV (RBC) [Entitic vol]95.0 [facility] HospitalMonocytes (Bld) [#/Vol]0.6 10*3/uL0.0 - 0.7 10*3/uLRegency Hospital Cleveland WestMonocytes/100 WBC (Bld)9.9 %0.0 - 10.0 %[facility] WestNeutrophils (Bld) [#/Vol]3.9 10*3/uL1.4 - 6.5 10*3/uLRegency Hospital Cleveland WestNeutrophils/100 WBC (Bld)66.2 %37.0 - 75.0 %[facility] WestPlatelet mean volume (Bld) [Entitic vol]6.9 fLLowRegency Hospital Cleveland WestPlatelets (Bld) [#/Vol]370 10*3/uL130 - 400 10*3/uLAvita Health SystemRBC (Bld) [#/Vol]2.91 10*6/uLLow4.0 - 5.4 10*6/[place] ClinicWBC (Bld) [#/Vol]5.9 10*3/uL3.6 - 11.0 10*3/[facility] ClinicLaboratory - Microbiology and Antimicrobial susceptibilityon [id number] isol Org specific cx Ql (Nose)NegativeNEGATIVE [facility] WestLaboratory - Urinalysison 67-79-4486Njulvnal LM.HPF (Urine sed) [#/Area]TRACEAbnormalNEGATIVERegency Hospital Cleveland WestCasts LM.LPF (Urine sed) [#/Area]NONENONE /LPTriHealth Bethesda North HospitalCrystals LM Nom (Urine sed)NONECommunity Regional Medical CenterEpithelial cells LM Ql (Urine sed)1 TO 5/[facility] Mucus Ql (Urine sed)NegativeNEGATIVEPremier Health Miami Valley Hospital NorthC LM.HPF (Urine sed) [#/Area]1 TO 5NEGATIVE /[facility] HospitalUrine sediment comments LM Girish (Urine sed)REFLEX CULTURE PER ESTABLISHED CRITERIA.[facility] WestW LM.HPF (Urine sed) [#/Area]NegativeNEGATIVE /[facility] HospitalMRSA SCREENon [id number] DNA SMILEY+probe Ql (Unsp spec)NegativeNormalNEGATIVESamaritan North Health CenterTAPH AUREUS SCREENNegativeNormalNEGATIVESaint Joseph Memorial HospitalComment on above:Result Comment: TESTING PERFORMED BY PCRNo Panel Informationon [id number] and review of laboratory resultsAbMontefiore Medical CenterTAPHYOCOCCUS AUREUS BY PCRNegativeNEGATIVEWilson Memorial HospitalGFR COMMENTAverage GFR for 70+ years old = 75.[facility] WestInterpretation and review of laboratory resultsAbRochester Regional HealthABSOLUTE BASOPHIL COUNT0.0 10*3/uL0.0 - 0.2 10*3/uL [facility] WestInterpretation and review of laboratory resultsAbRochester Regional HealthURINE CULTUREon [id number] identified Cx Nom (U)SPECIMEN DESCRIPTION URINE - OTHER UA DIPSTICK LEUKOCYTE POSITIVE * Result Note: NITRITE NEGATIVE * CULTURE NO PATHOGENS ISOLATED * Result Note: Testing performed at [place], [place] [address] * REPORT STATUS 01/23/2024 * Result Note: FINAL *[facility] HospitalComment on above:Performed By: #### AURNC #### Testing performed at [address] [address] Testing performed at [address] [address]OLXXC MICROSCOPICon 37-36-4499BFHSYVWHYFXAGDcdimtswFHUVLLLVEiplj [facility] HospitalCASTSNONLatrobe HospitalCRYSTFormerly [facility], [facility] HospitalE [facility] HospitalEpithelial cells LM Ql (Urine sed)[address] [place], [place] [address]Mucus Ql (Urine sed)NegativeSan Luis Obispo General Hospital URINE COMMENTREFLEX CULTURE PER ESTABLISHED CRITERIA.[facility] HospitalURINE RBC'S1 TO 5[facility] HospitalURINE WBC'SNegative NormalNEGMercy Health Lorain Hospital25 0H VITAMIN D LEVELon 0H VITAMIN D LEVEL16.9 NG/MLNormalSaint Joseph Memorial HospitalComment on above:Result Comment: DEFICIENT <20 NG/ML INSUFFICIENT 20-<30 NG/ML SUFFICIENT 30-100 NG/ML POTENTIAL TOXICITY >100 NG/MLBMP FASTINGon 31-00-9061Qbjpu gap [Moles/Vol]2 mmol/LLow8-16[facility] HospitalComment on above:Performed By: #### ACBC, FEPRO ####Testing performed at [place] [address] [place], [place] [address]Xszlble [Mass/Vol]8.3 mg/dLLow8.4-10.2AKingman Community Hospital Comment on above:Performed By: #### ACBC, FEPRO ####Testing performed at [address] [address]Aohbukus [Moles/Vol]103 mmol/SWzyifi26-328TjuczSaint Joseph Memorial HospitalComment on above:Result Comment: Please note: Triglyceride levels of 600mg/dL or higher may positively bias chloride results by approximately 2.1 mmolPerformed By: #### ACTRISTIAN, FEPRO ####Testing performed at [address] [address]YM5 [Moles/Vol]31 mmol/KYtvr80-31HyxydSaint Joseph Memorial HospitalComment on above:Performed By: #### ACTRISTIAN, FEPRO ####Testing performed at [address] [address]Dnthzrpgdg [Mass/Vol]0.60 mg/dLLow0.7-1.2AKingman Community HospitalComment on above:Performed By: #### PREMA, FEPRO ####Testing performed at [address] [address]GYM. GFR, Nmotjbeg505 ml/min/1.73sq.[facility] HospitalComment on above:Performed By: #### ACTRISTIAN, FEPRO ####Testing performed at [address] [address]KAQ. GFR,Non Kpnugkqe617 ml/min/1.73sq.[facility] HospitalComment on above:Performed By: #### ACTRISTIAN, FEPRO ####Testing performed at [address] [address]NWU InformationAverage GFR for 70+ years old = 75.Normal [facility] HospitalComment on above:Result Comment: Chronic Kidney disease, GFR = <60. Kidney failure, GFR = <15. The GFR estimate is not adjusted for extreme body surface area or acute process, nor has it been validated for women or ethnic groups other than and .Performed By: #### ACBC, FEPRO ####Testing performed at [address] [address]Gxyauuq [Mass/Vol]91 mg/jOEvtyem34-023QwcxjSaint Joseph Memorial HospitalComment on above:Result Comment: NORMAL <100 mg/dL PREDIABETES 101-126 mg/dL DIABETES 126 mg/dL or higherPerformed By: #### ACTRISTIAN, FEPRO ####Testing performed at [place] [id number] [Moles/Vol]3.8 mmol/LNormal3.5-5.1AThe Valley Hospital HospitalComment on above: Performed By: #### ACBC, FEPRO ####Testing performed at [address] [address]Ousffi [Moles/Vol]136 mmol/LLow 137-145[facility] HospitalComment on above:Performed By: #### ACTRISTIAN, FEPRO ####Testing performed at [place] [id number] nitrogen [Mass/Vol]9 mg/dLNormal7-20[facility] HospitalComment on above:Performed By: #### ACTRISTIAN, FEPRO ####Testing performed at [address] [address]GTPgn 56-31-5407CUEDAKTS BAS0.0 10*3/uLNormal0.0-0.2AThe Valley Hospital HospitalComment on above:Performed By: #### ACTRISTIAN, FEPRO ####Testing performed at [address] [address]JBDQIKIO EOS0.2 10*3/uLNormal0.0-0.7AKingman Community HospitalComment on above:Performed By: #### ACBC, FEPRO ####Testing performed at [address] [address]FIFZOYHI NEUTROPHIL COUNT4.1 10*3/uLNormal1.4-6.5AKingman Community HospitalComment on above:Performed By: #### ACBC, FEPRO ####Testing performed at [place] [id number]/100 WBC (Bld)0.8 %Normal0.0-2.0[facility] HospitalComment on above:Performed By: #### ACTRISTIAN, FEPRO ####Testing performed at [address] [address]YLETB AUTO DIFFNormalAThe Valley Hospital HospitalComment on above:Performed By: #### ACTRISTIAN, FEPRO ####Testing performed at [address] [address]Ynkdjekzidq/100 WBC (Bld)3.0 %Normal0.0-11.0[facility] HospitalComment on above:Performed By: #### ACTRISTIAN, FEPRO ####Testing performed at [address] [address]Dnwkqmkthrg (Bld) [#/Vol]1.2 10*3/uLNormal1.2-3.4AThe Valley Hospital HospitalComment on above:Performed By: #### ACTRISTIAN, FEPRO ####Testing performed at [address] [address]Ucfgdyhdchl/100 WBC (Bld)19.6 %Low20.0-55.0[facility] HospitalComment on above:Performed By: #### ACTRISTIAN, FEPRO ####Testing performed at [address] [address] Monocytes (Bld) [#/Vol]0.7 10*3/uLNormal0.0-0.7AThe Valley Hospital HospitalComment on above:Performed By: #### ACBC, FEPRO ####Testing performed at [address] [address]Xrxhftnow/100 WBC (Bld)10.9 %High 0.0-10.0[facility] HospitalComment on above:Performed By: #### ACBC, FEPRO ####Testing performed at [address], [place] [address]Ljfpgaxjwzz/100 WBC (Bld)65.7 %Brgezm78.0-75.0[facility] HospitalComment on above:Performed By: #### PREMA FEPRO ####Testing performed at [address] [address]Gsbwctyfspi distribution width (RBC) [Ratio]14.0 %Qkoynz29.5-14.5AviLos Angeles County High Desert Hospital HospitalComment on above: Performed By: #### PREMA FEPRO ####Testing performed at [address] [address]Usfxpnmfjj (Bld) [Volume fraction] 27.6 %Low36.0-48.0[facility] HospitalComment on above:Performed By: #### PREMA FEPRO ####Testing performed at [address] [address]Bqmqgobazc (Bld) [Mass/Vol]9.4 g/dLLow12.0-16.0[facility] HospitalComment on above:Performed By: #### PREMA FEPRO ####Testing performed at [address] [address]WVI (RBC) [Entitic mass]32.3 ynLpggvo73.0-35.0[facility] HospitalComment on above:Performed By: #### PREMA FEPRO ####Testing performed at [address] [address]SEPT (RBC) [Mass/Vol]34.0 g/dL Fyabxo44.0-37.0[facility] HospitalComment on above:Performed By: #### ACTRISTIAN FEPRO ####Testing performed at [address] [address]GMZ (RBC) [Entitic vol]95.0 iZDtseph00.0-100.0[facility] HospitalComment on above:Performed By: #### ACBC, FEPRO ####Testing performed at [address] [address]Uaitgzsy mean volume (Bld) [Entitic vol]6.9 fLLow7.4-11.0[facility] HospitalComment on above: Performed By: #### ACBC, FEPRO ####Testing performed at [address] [address]Opdwlipib (Bld) [#/Vol]357 10*3/uL Ewldua780-149Hddsi [facility] HospitalComment on above:Performed By: #### ACBC, FEPRO ####Testing performed at [address] [address]ZEW (Bld) [#/Vol]2.90 10*6/uLLow4.0-5.4AThe [facility] Hospital Hospital Comment on above:Performed By: #### ACBC, FEPRO ####Testing performed at [address] [address]IGC (Bld) [#/Vol]6.3 10*3/uLNormal3.6-11.0[facility] HospitalComment on above:Performed By: #### ACBC, FEPRO ####Testing performed at [address] [address]JAIN PROFILEon 24-46-8029XFED WLZGPFP851 UG/HBIgs913-097 [facility] HospitalComment on above:Performed By: #### ACBC #### Testing performed at [address] [address]UBCZPBVPQIG SATURATION,TNNMFWHHRX13 %NormalAlta Bates Summit Medical Center HospitalComment on above:Performed By: #### ACBC #### Testing performed at [address] [address]Zsdz [Mass/Vol]29 ug/yJQfg19-379Slaun [facility] HospitalComment on above:Performed By: #### ACBC #### Testing performed at [address] [address]Cmtlqvayab - Chemistry and Chemistry - challengeon 01-20-2024 25-hydroxyvitamin D [Mass/Vol]16.9NG/MLRegency Hospital Cleveland WestParathyrin.intact [Mass/Vol]40.2 pg/mL14.5 - 75.2 pg/mLMemorial Hospital SystemIron [Mass/Vol]29 ug/dL LowRegency Hospital Cleveland WestIron binding capacity [Mass/Vol]144LowRegency Hospital Cleveland West Anion gap [Moles/Vol]2 mmol/[facility] HospitalCalcium [Mass/Vol]8.3 mg/dL LowRegency Hospital Cleveland WestChloride [Moles/Vol]103 mmol/[facility] SystemCO2 [Moles/Vol]31 mmol/[facility] HospitalCreatinine [Mass/Vol]0.60 mg/dLLow [facility] WestGFR/1.73 sq M.predicted among blacks MDRD (S/P/Bld) [Vol rate/Area]123 mL/min/{1.73_m2}ml/min/1.73sq.[facility] SystemGFR/1.73 sq M.predicted among non-blacks MDRD (S/P/Bld) [Vol rate/Area]102 mL/min/{1.73_m2} ml/min/1.73sq.[facility]ria Medical CenterGlucose post fast [Mass/Vol]91 mg/dLRegency Hospital Cleveland WestPotassium [Moles/Vol]3.8 mmol/[facility] SystemSodium [Moles/Vol]136 mmol/[facility] HospitalUrea nitrogen [Mass/Vol]9 mg/dLRegency Hospital Cleveland WestLaboratory - Hematology and Cell countson 82-48-0230Cqipvmpbw/100 WBC (Bld)0.8 %0.0 - 2.0 %[facility] WestDifferential cell count method Nom (Bld)AUTO DIFF%[facility] WestEosinophils (Bld) [#/Vol]0.2 10*3/uL0.0 - 0.7 10*3/uLRegency Hospital Cleveland WestEosinophils/100 WBC (Bld)3.0 %0.0 - 11.0 %[facility] WestErythrocyte distribution width (RBC) [Ratio]14.0 %11.5 - 14.5 %[facility] WestHematocrit (Bld) [Volume fraction]27.6 %Low36.0 - 48.0 %[facility] WestHemoglobin (Bld) [Mass/Vol]9.4 g/dLMiddletown Hospital Lymphocytes (Bld) [#/Vol]1.2 10*3/uL1.2 - 3.4 10*3/[facility] Lymphocytes/100 WBC (Bld)19.6 %Low20.0 - 55.0 %[facility] WestMCH (RBC) [Entitic mass]32.3 pg26.0 - 35.0 PGAUK HealthcareMCHC (RBC) [Mass/Vol]34.0 g/dLRegency Hospital Cleveland WestMCV (RBC) [Entitic vol]95.0 [facility] Monocytes (Bld) [#/Vol]0.7 10*3/uL0.0 - 0.7 10*3/[facility] Monocytes/100 WBC (Bld)10.9 %High0.0 - 10.0 %[facility] WestNeutrophils (Bld) [#/Vol]4.1 10*3/uL1.4 - 6.5 10*3/[facility] ClinicNeutrophils/100 WBC (Bld)65.7 %37.0 - 75.0 %[facility] WestPlatelet mean volume (Bld) [Entitic vol]6.9 fLLowRegency Hospital Cleveland WestPlatelets (Bld) [#/Vol]357 10*3/uL130 - 400 10*3/[facility] ClinicRBC (Bld) [#/Vol]2.90 10*6/uLLow4.0 - 5.4 10*6/[facility] ClinicWBC (Bld) [#/Vol]6.3 10*3/uL3.6 - 11.0 10*3/[facility] No Panel Informationon [id number] Memorial Hospital Interpretation and review of laboratory resultsAbnormKing's Daughters Medical Center [place] Transferrin Saturation (%)20 %[facility] Memorial HospitalGFR COMMENT Average GFR for 70+ years old = 75.[facility] WestInterpretation and review of laboratory resultsAbnoAurora Sinai Medical Center– MilwaukeeABSOLUTE BASOPHIL COUNT0.0 10*3/uL0.0 - 0.2 10*3/uLRegency Hospital Cleveland WestInterpretation and review of laboratory resultsAbnoAurora Sinai Medical Center– [place] PTH,INTACTon [id number],CIHQPR32.2 pg/bVXbthml60.5-75.2AKingman Community Hospital Comment on above:Performed By: #### ACBC #### Testing performed at [facility] [address] [place], [place] [address]Zcjsjlms XR Chest Viewson [id number] Health SystemRadiology Study observation (narrative)[facility] WestPortable XR Chest ViewsOrdered By: Katina Carlisle on 04-36-5080FrfnpUK HealthcareXR CHEST 1 VIEW PORTABLEon [id number] CHEST 1 VIEW PORTABLEEXAM: XR CHEST 1 VIEW PORTABLE HISTORY: r/o [...] accentuated interstitial markings which may well be chronic.NormalSaint Joseph Memorial HospitalBASIC METABOLIC PANELon 69-75-8316Tvntu gap [Moles/Vol]3 mmol/LMMOL/LAvita Health SystemCalcium [Mass/Vol]8.4 mg/dLRegency Hospital Cleveland WestChloride [Moles/Vol]105 mmol/LAvita Health SystemComment on above:Please note: Triglyceride levels of 600mg/dL or higher may positively bias chloride results by approximately 2.1 mmolCO2 [Moles/Vol]27 mmol/[facility] SystemCreatinine [Mass/Vol]0.60 mg/dLMiddletown Hospital GFR COMMENTAverage GFR for 70+ years old = 75.[facility] WestComment on above:Chronic Kidney disease, GFR = <60. Kidney failure, GFR = <15. The GFR estimate is not adjusted for extreme body surface area or acute process, nor has it been validated for women or ethnic groups other than and . GFR/1.73 sq M.predicted among blacks MDRD (S/P/Bld) [Vol rate/Area]123 mL/min/{1.73_m2}ml/min/1.73sq.mAUK HealthcareGFR/1.73 sq M.predicted among non-blacks MDRD (S/P/Bld) [Vol rate/Area]102 mL/min/{1.73_m2}ml/min/1.73sq.m [facility] WestGlucose post fast [Mass/Vol]119 mg/dLTrumbull Memorial Hospital Comment on above: NORMAL <100 mg/dL PREDIABETES 101-126 mg/dL DIABETES 126 mg/dL or higher Interpretation and review of laboratory resultsAbnormKing's Daughters Medical Center [place] Potassium [Moles/Vol]3.5 mmol/[facility] Hospitalodium [Moles/Vol]135 mmol/L LowRegency Hospital Cleveland WestUrea nitrogen [Mass/Vol]10 mg/dLWilson Memorial HospitalBMP FASTINGon 12-07-7947Xrxkc gap [Moles/Vol]3 mmol/LNormalThe Valley HospitalComment on above:Performed By: #### IDANIA UMAC #### Testing performed at [address] [address]Uxfrwfz [Mass/Vol]8.4 mg/dLNormal8.4-10.2ASt. [facility] Comment on above:Performed By: #### IDANIA UMAC #### Testing performed at [address] [address]Xwxujgyg [Moles/Vol]105 mmol/RHgdmwt37-678IuqwmThe Valley HospitalComment on above:Result Comment: Please note: Triglyceride levels of 600mg/dL or higher may positively bias chlorideresults by approximately 2.1 mmol Performed By: #### SAURAV EMERSON #### Testing performed at [address] [address]MC8 [Moles/Vol]27 mmol/BCavujm68-73RwpgwThe Valley Hospital Comment on above:Performed By: #### SAURAV EMERSON #### Testing performed at [address] [address]Tbubxtpcdj [Mass/Vol]0.60 mg/dLLow0.70-1.20The Valley HospitalComment on above:Performed By: #### SAURAV EMERSON #### Testing performed at [address] [address]AGK. GFR, Lhjlmngf465 ml/min/1.73sq.mNMimbres Memorial HospitalComment on above:Performed By: #### SAURAV EMERSON #### Testing performed at [address] [address]CSU. GFR,Non Zcbkqxeh491 ml/min/1.73sq.Brightlook HospitalComment on above:Performed By: #### SAURAV EMERSON #### Testing performed at [address] [address]PKE InformationAverage GFR for 70+ years old = 75.NormalThe Valley HospitalComascension st. [facility] on above:Result Comment: Chronic Kidney disease, GFR = <60. Kidney failure, GFR = <15. The GFR estimate is not adjusted for extreme body surface area or acute process, nor has it been validated for women or ethnic groups other than and .Performed By: #### SAURAV EMERSON #### Testing performed at [address] [address]Quqjhmz [Mass/Vol]119 mg/eOYinr71-897BzrakThe Valley Hospital Comment on above:Result Comment: NORMAL <100 mg/dL PREDIABETES 101-126 mg/dL DIABETES 126 mg/dL or higherPerformed By: #### SAURAV EMERSON #### Testing performed at [address] [address]Kbigegycg [Moles/Vol]3.5 mmol/LNormal3.5-5.1ASt. Lawrence Rehabilitation CenterComment on above:Performed By: #### SAURAV EMERSON #### Testing performed at [address] [address]Nlvcoh [Moles/Vol]135 mmol/RKhq942-529IadhrThe Valley Hospital Comment on above:Performed By: #### SAURAV EMERSON #### Testing performed at [address] [address]Axxt nitrogen [Mass/Vol]10 mg/dLNormal7-20The Valley HospitalComment on above:Performed By: #### SAURAV EMERSON #### Testing performed at [address] [address]GANpl 85-11-1566NBAKIVFO BAS0.0 10*3/uLNormal0.0-0.2ASt. Lawrence Rehabilitation CenterComment on above:Performed By: #### SAURAV EMERSON #### Testing performed at [address] [address]ORASDMQU EOS0.1 10*3/uLNormal0.0-0.7ASt. [facility] Rehabilitation Center Comment on above:Performed By: #### SAURAV EMERSON #### Testing performed at [address] [address]BHBNTXMD NEUTROPHIL COUNT4.7 10*3/uLNormal1.4-6.5ASt. Lawrence Rehabilitation CenterComment on above:Performed By: #### SAURAV EMERSON #### Testing performed at [address] [address]Tatrnrici/100 WBC (Bld)0.6 %Normal0.0-2.0[facility] Comment on above:Performed By: #### SAURAV EMERSON #### Testing performed at [address] [address]IEFUQNRBJ DIFFNormalASt. Lawrence Rehabilitation CenterComment on above: Performed By: #### SAURAV EMERSON #### Testing performed at [address] [address]Itjmzrnhphe/100 WBC (Bld)1.9 %Normal0.0-11.0[facility] HospitalComment on above:Performed By: #### SAURAV EMERSON #### Testing performed at [address] [address]Hgtxvhwvkem distribution width (RBC) [Ratio]13.9 %Normal 11.5-14.5ASt. Joseph's Regional Medical Center HospitalComment on above:Performed By: #### TAINA EMERSONAC #### Testing performed at [address] [address]Qysiatvmtk (Bld) [Volume fraction]29.2 %Low36.0-48.0[facility] HospitalComment on above:Performed By: #### SAURAV EMERSON #### Testing performed at [address] [address]Zwodvvxzfa (Bld) [Mass/Vol]9.8 g/dLLow12.0-16.0[facility] HospitalComment on above:Performed By: #### SAURAV EMERSON #### Testing performed at [address] [address]Kuaqujgxddb (Bld) [#/Vol]1.1 10*3/uLLow1.2-3.4ASt. Joseph's Regional Medical Center HospitalComment on above:Performed By: #### IDANIA UMAC #### Testing performed at [address] [address]Offbsunhefl/100 WBC (Bld)16.5 %Low20.0-55.0[facility] HospitalComment on above:Performed By: #### IDANIA UMAC #### Testing performed at [address] [address]QCN (RBC) [Entitic mass]31.8 uiDihztb98.0-35.0[facility] HospitalComment on above:Performed By: #### IDANIA UMAC #### Testing performed at [address] [address]DSIH (RBC) [Mass/Vol]33.6 g/tUSjvcxx11.0-37.0[facility] HospitalComment on above:Performed By: #### IDANIA, UMAC #### Testing performed at [address] [address]NGI (RBC) [Entitic vol]94.6 oVVzplwg99.0-100.0The [facility] HospitalComment on above:Performed By: #### IDANIA, UMAC #### Testing performed at [address] [address]Vmyadqevw (Bld) [#/Vol]0.8 10*3/uLHigh0.0-0.7ASt. Lawrence Rehabilitation CenterComment on above:Performed By: #### IDANIA, UMAC #### Testing performed at [address] [address]Bagutyhvm/100 WBC (Bld)11.9 %High0.0-10.0[facility] Comment on above:Performed By: #### IDANIA, UMAC #### Testing performed at [address] [address]Atznytxbdoj/100 WBC (Bld)69.1 %Iqpned17.0-75.0The [facility] HospitalComment on above:Performed By: #### IDANIA, UMAC #### Testing performed at [address] [address]Neghbzjz mean volume (Bld) [Entitic vol]7.9 fLNormal7.4-11.0 The [facility] HospitalComment on above:Performed By: #### IDANIA, UMAC #### Testing performed at [address] [address]Zorqkgudz (Bld) [#/Vol]279 10*3/jQDiomtv725-315HaboqThe Valley HospitalComment on above:Performed By: #### IDANIA, UMAC #### Testing performed at [address] [address]AJO (Bld) [#/Vol]3.09 10*6/uLLow4.0-5.4ASt. [facility] Rehabilitation Center Comment on above:Performed By: #### IDANIA, UMAC #### Testing performed at [address] [address]HLP (Bld) [#/Vol]6.8 10*3/uLNormal3.6-11.0The [facility] HospitalComment on above:Performed By: #### UMESTEVAN, UMEMIR #### Testing performed at [facility] [address] [facility], [place] [address]BOR, EDIF, PLATELETon [id number] BASOPHIL COUNT0.0 10*3/uL0.0 - 0.2 10*3/uLMemorial Hospital SystemBasophils/100 WBC (Bld)0.6 %0.0 - 2.0 %[facility] WestDifferential cell count method Nom (Bld)AUTO DIFF%[facility] WestEosinophils (Bld) [#/Vol]0.1 10*3/uL0.0 - 0.7 10*3/uLRegency Hospital Cleveland WestEosinophils/100 WBC (Bld)1.9 %0.0 - 11.0 %[facility] WestErythrocyte distribution width (RBC) [Ratio]13.9 %11.5 - 14.5 %[facility] WestHematocrit (Bld) [Volume fraction]29.2 %Low36.0 - 48.0 %[facility] WestHemoglobin (Bld) [Mass/Vol]9.8 g/dLLowRegency Hospital Cleveland WestInterpretation and review of laboratory resultsAbnormKing's Daughters Medical Center OhioLymphocytes (Bld) [#/Vol]1.1 10*3/uLLow1.2 - 3.4 10*3/uLRegency Hospital Cleveland WestLymphocytes/100 WBC (Bld)16.5 %Low 20.0 - 55.0 %[facility] WestMCH (RBC) [Entitic mass]31.8 pg26.0 - 35.0 PG [facility] WestMCHC (RBC) [Mass/Vol]33.6 g/dLRegency Hospital Cleveland WestMCV (RBC) [Entitic vol]94.6 [facility] HospitalMonocytes (Bld) [#/Vol]0.8 10*3/uLHigh0.0 - 0.7 10*3/uLRegency Hospital Cleveland WestMonocytes/100 WBC (Bld)11.9 %High0.0 - 10.0 % [facility] WestNeutrophils (Bld) [#/Vol]4.7 10*3/uL1.4 - 6.5 10*3/[facility] ClinicNeutrophils/100 WBC (Bld)69.1 %37.0 - 75.0 %[facility] Platelet mean volume (Bld) [Entitic vol]7.9 [facility] HospitalPlatelets (Bld) [#/Vol]279 10*3/uL130 - 400 10*3/[facility] ClinicRBC (Bld) [#/Vol]3.09 10*6/uLLow4.0 - 5.4 10*6/[facility]opathic ClinicWBC (Bld) [#/Vol]6.8 10*3/uL3.6 - 11.0 10*3/[facility] HospitalRENAL FUNCTION PANELon 36-88-0403Mysrris [Mass/Vol]2.6 G/dlLow3.5 - 5.0 G/dlRegency Hospital Cleveland WestCalcium [Mass/Vol]8.2 mg/dLMiddletown HospitalChloride [Moles/Vol]105 mmol/[facility] Jewish HospitalComment on above:Please note: Triglyceride levels of 600mg/dL or higher may positively bias chloride results by approximately 2.1 mmolCO2 [Moles/Vol]29 mmol/[facility] HospitalCreatinine [Mass/Vol]0.51 mg/dLMiddletown HospitalGFR COMMENTAverage GFR for 70+ years old = 75.[facility] Comment on above:Chronic Kidney disease, GFR = <60. Kidney failure, GFR = <15. The GFR estimate is not adjusted for extreme body surface area or acute process, nor has it been validated for women or ethnic groups other than and . GFR/1.73 sq M.predicted among blacks MDRD (S/P/Bld) [Vol rate/Area]149 mL/min/{1.73_m2}ml/min/1.73sq.[facility] Medical CenterGFR/1.73 sq M.predicted among non-blacks MDRD (S/P/Bld) [Vol rate/Area]123 mL/min/{1.73_m2}ml/min/1.73sq.m [facility] WestGlucose post fast [Mass/Vol]106 mg/dLTrumbull Memorial Hospital Comment on above: NORMAL <100 mg/dL PREDIABETES 101-126 mg/dL DIABETES 126 mg/dL or higher Interpretation and review of laboratory resultsAbnormalAUK Healthcare Phosphate [Mass/Vol]2.6 mg/dLRegency Hospital Cleveland WestPotassium [Moles/Vol]3.3 mmol/L LowGreene Memorial Hospitalodium [Moles/Vol]135 mmol/LLowAUK HealthcareUrea nitrogen [Mass/Vol]10 mg/dLWilson Memorial HospitalRENAL PANEL,FASTINGon 41-98-0449HPGWHSI5.6 G/dlLow3.5-5.0The [facility] HospitalComment on above:Performed By: #### IDANIA UMAC #### Testing performed at [address] [address]Hknoeey [Mass/Vol]8.2 mg/dLLow8.4-10.2ASt. [facility] Center Comment on above:Performed By: #### IDANIA UMAC #### Testing performed at [address] [address]Bbecxjjd [Moles/Vol]105 mmol/LAqtlzm24-118YsupjThe Valley HospitalComment on above:Result Comment: Please note: Triglyceride levels of 600mg/dL or higher may positively bias chlorideresults by approximately 2.1 mmol Performed By: #### IDANIA UMAC #### Testing performed at [address] [address]EF1 [Moles/Vol]29 mmol/NGszocu20-64IzegiThe Valley Hospital Comment on above:Performed By: #### IDANIA UMAC #### Testing performed at [address] [address]Mehycodnwb [Mass/Vol]0.51 mg/dLLow0.70-1.20The [facility] HospitalComment on above:Performed By: #### IDANIA UMAC #### Testing performed at [address] [address]GOF. GFR, Ezueuymu327 ml/min/1.73sq.mNormalThe Valley HospitalComment on above:Performed By: #### SAURAV EMERSON #### Testing performed at [address] [address]NIM. GFR,Non Lgvhfujo082 ml/min/1.73sq.mNMimbres Memorial HospitalComment on above:Performed By: #### TAINA EMERSONAC #### Testing performed at [address] [address]FUY InformationAverage GFR for 70+ years old = 75.NormalThe Valley HospitalComment on above:Result Comment: Chronic Kidney disease, GFR = <60. Kidney failure, GFR = <15. The GFR estimate is not adjusted for extreme body surface area or acute process, nor has it been validated for women or ethnic groups other than and .Performed By: #### SAURAV EMERSON #### Testing performed at [address] [address]Glvdqcl [Mass/Vol]106 mg/eOXqwk56-621PqluxThe [facility] Hospital Comment on above:Result Comment: NORMAL <100 mg/dL PREDIABETES 101-126 mg/dL DIABETES 126 mg/dL or higherPerformed By: #### SAURAV EMERSON #### Testing performed at [address] [address]ACCMAFEVDRS6.6 MG/DLNormal2.5-4.5ASt. Lawrence Rehabilitation CenterComment on above:Performed By: #### SAURAV EMERSON #### Testing performed at [address] [address]Knhrnqgrv [Moles/Vol]3.3 mmol/LLow3.5-5.1ASt. [facility] Rehabilitation Center Comment on above:Performed By: #### SAURAV EMERSON #### Testing performed at [address] [address]Skvhow [Moles/Vol]135 mmol/ZXqg565-876ZdvwmThe [facility] Comment on above:Performed By: #### TAINA EMERSONAC #### Testing performed at [address] [address]Ycwa nitrogen [Mass/Vol]10 mg/dLNormal7-20The [facility] HospitalComment on above:Performed By: #### SAURAV EMERSON #### Testing performed at [facility] [address] [place], [place] [address]CAGTPHEC PATHOLOGY REQUESTon [id number] report final diagnosis Narrative Surgical Final Report Patient Name: CUATE GOODMAN [facility]. Rec. #: [id number] Physician: ERIK HEREDIA Specimen(s) Received Left femoral [...] articular cartilage degeneration. Sectioning reveals unremarkable bone. Egg Pasteurizer sections are submitted in one cassette and placed in decalcification solution prior to processing. Billing Fee Code(s) A: 93612, 35859CsykrMercy Memorial HospitalXR FOOT RIGHT 2 VIEWSon [id number] FOOT RIGHT 2 VIEWSEXAM: XR FOOT RIGHT 2 VIEWS HISTORY: swelling, [...] Mild DJD and hallux valgus with osseous demineralization.[facility] HospitalXR Foot - right 2 Viewson [id number]: 1. No radiographic evidence of acute osseous injury or osteomyelitis. 2. Severe diffuse soft tissue swelling. Large plantar spur. Mild DJD and hallux valgus with osseous demineralization. RADIOLOGYEXAM: XR FOOT RIGHT 2 VIEWS HISTORY: swelling, [...] fracture or dislocation. There is mild osteophytosis. Miguel Padilla MD - 01/17/2024 EXAM: XR FOOT RIGHT 2 [...] DJD and hallux valgus with osseous demineralization. [facility] WestRadiology Study observation (narrative)[facility] WestXR Foot - right 2 ViewsOrdered By: Miguel Marin on 30-61-7699LhnbbUK Healthcare Work Phone: CBCon [phone] BAS0.0 10*3/uLNormal0.0-0.2 The [facility] HospitalComment on above:Performed By: #### IDANIA EMIR #### Testing performed at [address] [address]JJDLFYSY EOS0.1 10*3/uLNormal0.0-0.7ASt. [facility] Rehabilitation Center Comment on above:Performed By: #### SAURAV EMERSON #### Testing performed at [address] [address]ZQUZIUUP NEUTROPHIL COUNT7.6 10*3/uLHigh1.4-6.5AHarrison Community Hospitalment on above:Performed By: #### IDANIA UMAC #### Testing performed at [address] [address]Zsaoghibh/100 WBC (Bld)0.3 %Normal0.0-2.0[facility] Comment on above:Performed By: #### IDANIA, UMAC #### Testing performed at [address] [address]XYOGLZTXV DIFFNormalASt. Lawrence Rehabilitation CenterComment on above: Performed By: #### IDANIA, UMAC #### Testing performed at [address] [address]Omjhhtebibe/100 WBC (Bld)0.5 %Normal0.0-11.0The Valley HospitalComment on above:Performed By: #### IDANIA, UMAC #### Testing performed at [address] [address]Rxbxyzvyqvp (Bld) [#/Vol]1.1 10*3/uLLow1.2-3.4ASt. Lawrence Rehabilitation CenterComment on above:Performed By: #### IDANIA UMAC #### Testing performed at [address] [address]Hpcfjxglepz/100 WBC (Bld)11.0 %Low20.0-55.0[facility]Com[facility] on above:Performed By: #### IDANIA, UMAC #### Testing performed at [address] [address]Intdakiez (Bld) [#/Vol]1.1 10*3/uLHigh0.0-0.7ASt. Lawrence Rehabilitation CenterComascension st[facility] on above:Performed By: #### IDANIA, UMAC #### Testing performed at [address] [address]Akzlgsmzu/100 WBC (Bld)10.8 %High0.0-10.0[facility] Comment on above:Performed By: #### IDANIA, UMAC #### Testing performed at [address] [address]Hzvbmynnvyd/100 WBC (Bld)77.4 %High37.0-75.0[facility] HospitalComment on above:Performed By: #### SAURAV EMERSON #### Testing performed at [address] [address]Opcujwsesjj distribution width (RBC) [Ratio]14.6 %High11.5-14.5 [facility] HospitalComment on above:Performed By: #### SAURAV EMERSON #### Testing performed at [address] [address]Kxgapklska (Bld) [Volume fraction]32.1 %Low36.0-48.0[facility] HospitalComment on above:Performed By: #### SAURAV EMERSON #### Testing performed at [address] [address]Mgtkhwjmzb (Bld) [Mass/Vol]10.5 g/dLLow12.0-16.0[facility] HospitalComment on above:Performed By: #### SAURAV EMERSON #### Testing performed at [address] [address]IAJ (RBC) [Entitic mass]31.4 dcTddoyg17.0-35.0[facility] HospitalComment on above:Performed By: #### SAURAV EMERSON #### Testing performed at [address] [address]RMYJ (RBC) [Mass/Vol]32.8 g/nKSxmdov42.0-37.0[facility] HospitalComment on above:Performed By: #### SAURAV EMERSON #### Testing performed at [address] [address]GED (RBC) [Entitic vol]96.0 mZDprtiv39.0-100.0[facility] HospitalComment on above:Performed By: #### SAURAV EMERSON #### Testing performed at [address] [address]Ytpwrkbr mean volume (Bld) [Entitic vol]8.4 fLNormal7.4-11.0 [facility] HospitalComment on above:Performed By: #### SAURAV EMERSON #### Testing performed at [address] [address]Elbpumyan (Bld) [#/Vol]226 10*3/nGWxzphl087-820Bkwii Ontario HospitalComment on above:Performed By: #### IDANIA, UMAC #### Testing performed at [address] [address]JMP (Bld) [#/Vol]3.35 10*6/uLLow4.0-5.4ASt. [facility] Rehabilitation Center Comment on above:Performed By: #### IDANIA, UMAC #### Testing performed at [address] [address]TNQ (Bld) [#/Vol]9.9 10*3/uLNormal3.6-11.0The [facility] HospitalComment on above:Performed By: #### IDANIA, UMEMIR #### Testing performed at [address] [address]SEG, EDIF, PLATELETon [id number] BASOPHIL COUNT0.0 10*3/uL0.0 - 0.2 10*3/[facility] ClinicBasophils/100 WBC (Bld)0.3 %0.0 - 2.0 %[facility] WestDifferential cell count method Nom (Bld)AUTO DIFF%[facility] WestEosinophils (Bld) [#/Vol]0.1 10*3/uL0.0 - 0.7 10*3/[facility] ClinicEosinophils/100 WBC (Bld)0.5 %0.0 - 11.0 %[facility] WestErythrocyte distribution width (RBC) [Ratio]14.6 %High11.5 - 14.5 %[facility] Hematocrit (Bld) [Volume fraction]32.1 %Low36.0 - 48.0 %[facility] Hemoglobin (Bld) [Mass/Vol]10.5 g/dLMiddletown HospitalInterpretation and review of laboratory resultsAbnoSalem City HospitalLymphocytes (Bld) [#/Vol] 1.1 10*3/uLLow1.2 - 3.4 10*3/[facility] ClinicLymphocytes/100 WBC (Bld)11.0 %Low20.0 - 55.0 %[facility] WestMCH (RBC) [Entitic mass]31.4 pg26.0 - 35.0 PGAUK HealthcareMCHC (RBC) [Mass/Vol]32.8 g/dLRegency Hospital Cleveland WestMCV (RBC) [Entitic vol]96.0 [facility] HospitalMonocytes (Bld) [#/Vol]1.1 10*3/uLHigh0.0 - 0.7 10*3/uLRegency Hospital Cleveland WestMonocytes/100 WBC (Bld)10.8 %High0.0 - 10.0 % [facility] WestNeutrophils (Bld) [#/Vol]7.6 10*3/uLHigh1.4 - 6.5 10*3/uL [facility] WestNeutrophils/100 WBC (Bld)77.4 %High37.0 - 75.0 %[facility] WestPlatelet mean volume (Bld) [Entitic vol]8.4 [facility] HospitalPlatelets (Bld) [#/Vol]226 10*3/uL130 - 400 10*3/[facility] ClinicRBC (Bld) [#/Vol] 3.35 10*6/uLLow4.0 - 5.4 10*6/[facility] ClinicWBC (Bld) [#/Vol]9.9 10*3/uL 3.6 - 11.0 10*3/[facility] Luther[facility] HospitalBASIC METABOLIC PANELon 71-25-4642Vpqxx gap [Moles/Vol]4 mmol/LMMOL/[facility] HospitalCalcium [Mass/Vol]9.0 mg/dLRegency Hospital Cleveland WestChloride [Moles/Vol]107 mmol/[facility] HospitalComment on above:Please note: Triglyceride levels of 600mg/dL or higher may positively bias chloride results by approximately 2.1 mmolCO2 [Moles/Vol]26 mmol/[facility] HospitalCreatinine [Mass/Vol]0.70 mg/dLRegency Hospital Cleveland WestGFR COMMENTAverage GFR for 70+ years old = 75.[facility] WestComment on above: Chronic Kidney disease, GFR = <60. Kidney failure, GFR = <15. The GFR estimate is not adjusted for extreme body surface area or acute process, nor has it been validated for women or ethnic groups other than and . GFR/1.73 sq M.predicted among blacks MDRD (S/P/Bld) [Vol rate/Area]103 mL/min/{1.73_m2}ml/min/1.73sq.[facility]ctors [facility] SystemGFR/1.73 sq M.predicted among non-blacks MDRD (S/P/Bld) [Vol rate/Area]85 mL/min/{1.73_m2}ml/min/1.73sq.[facility]ly[facility] Medical CenterGlucose post fast [Mass/Vol]164 mg/dLTrumbull Memorial HospitalComment on above: NORMAL <100 mg/dL PREDIABETES 101-126 mg/dL DIABETES 126 mg/dL or higher Interpretation and review of laboratory resultsAbnormalAUK Healthcare Potassium [Moles/Vol]4.2 mmol/LAvita Wilson Memorial Hospital SystemSodium [Moles/Vol]137 mmol/L [facility] WestUrea nitrogen [Mass/Vol]19 mg/dLWilson Memorial HospitalBMP FASTINGon 72-04-9339Damwl gap [Moles/Vol]4 mmol/LNormalThe Valley HospitalComment on above:Performed By: #### CHANCE LLOYD #### Testing performed at [address] [address]Nfznvfm [Mass/Vol]9.0 mg/dLNormal8.4-10.2ASt. [facility] Rehabilitation Center Comment on above:Performed By: #### CHANCE LLOYD #### Testing performed at [address] [address]Tsbrautc [Moles/Vol]107 mmol/DLclzoi90-488VeuoyThe Valley HospitalComment on above:Result Comment: Please note: Triglyceride levels of 600mg/dL or higher may positively bias chlorideresults by approximately 2.1 mmol Performed By: #### CHANCE LLOYD #### Testing performed at [address] [address]ZG3 [Moles/Vol]26 mmol/OAfmenb60-94DnhyhThe Valley Hospital Comment on above:Performed By: #### PREMA, BMPF #### Testing performed at [address] [address]Ottgrcfind [Mass/Vol]0.70 mg/dLNormal0.70-1.20The [facility] HospitalComment on above:Performed By: #### PREMA, BMPF #### Testing performed at [address] [address]PLM. GFR, Uckzgkyx523 ml/min/1.73sq.mNMimbres Memorial HospitalComment on above:Performed By: #### PREMA, BMPF #### Testing performed at [address] [address]AJN. GFR,Non Rzqsujmo17 ml/min/1.73sq.Brightlook HospitalComment on above:Performed By: #### PREMA, BMPF #### Testing performed at [address] [address]SHI InformationAverage GFR for 70+ years old = 75.NormalThe Valley HospitalComment on above:Result Comment: Chronic Kidney disease, GFR = <60. Kidney failure, GFR = <15. The GFR estimate is not adjusted for extreme body surface area or acute process, nor has it been validated for women or ethnic groups other than and .Performed By: #### PREMA, BMPF #### Testing performed at [address] [address]Cukhmmo [Mass/Vol]164 mg/nIJzkv70-266OcsykThe [facility] Hospital Comment on above:Result Comment: NORMAL <100 mg/dL PREDIABETES 101-126 mg/dL DIABETES 126 mg/dL or higherPerformed By: #### PREMA, BMPF #### Testing performed at [address] [address]Lqruinwda [Moles/Vol]4.2 mmol/LNormal3.5-5.1ASt. Lawrence Rehabilitation CenterComment on above:Performed By: #### PREMA, BMPF #### Testing performed at [address] [address]Cwnayr [Moles/Vol]137 mmol/BBfulmz984-256EtvjmThe [facility] Hospital Comment on above:Performed By: #### ACBC, BMPF #### Testing performed at [address] [address]Wddr nitrogen [Mass/Vol]19 mg/dLNormal7-20[facility] HospitalComasc[facility] on above:Performed By: #### ACBC, BMPF #### Testing performed at [address] [address]DVXug 15-38-4867RJICODLX BAS0.0 10*3/uLNormal0.0-0.2ASt. Lawrence Rehabilitation CenterComascension st. [facility] hospital on above:Performed By: #### ACBC, BMPF #### Testing performed at [address] [address]AXEFRMCX EOS0.0 10*3/uLNormal0.0-0.7ASt. [facility] Rehabilitation Center Comment on above:Performed By: #### ACTRISTIAN, BMPF #### Testing performed at [address] [address]NCBXKJSU NEUTROPHIL COUNT8.6 10*3/uLHigh1.4-6.5AZanesville City Hospital on above:Performed By: #### ACTRISTIAN, BMPF #### Testing performed at [address] [address]Ugnhpgnij/100 WBC (Bld)0.0 %Normal0.0-2.0[facility] Comment on above:Performed By: #### ACTRISTIAN, BMPF #### Testing performed at [address] [address]ASTRXKVIH DIFFNormalASt. [facility] Rehabilitation CenterComascension st[facility] on above: Performed By: #### ACBC, BMPF #### Testing performed at [address] [address]Efnyuvtrelx/100 WBC (Bld)0.0 %Normal0.0-11.0[facility] on above:Performed By: #### ACBC, BMPF #### Testing performed at [address] [address]Mjahpqslexk (Bld) [#/Vol]0.6 10*3/uLLow1.2-3.4ASt. Lawrence Rehabilitation CenterComment on above:Performed By: #### ACBC, BMPF #### Testing performed at [address] [address]Hirdyhndoja/100 WBC (Bld)5.9 %Low20.0-55.0The [facility] HospitalComment on above:Performed By: #### ACBC, BMPF #### Testing performed at [address] [address]Mexxbuxog (Bld) [#/Vol]0.8 10*3/uLHigh0.0-0.7ASt. [facility]'s [facility] Center HospitalComment on above:Performed By: #### ACBC, BMPF #### Testing performed at [address] [address]Bzpdpfqld/100 WBC (Bld)8.3 %Normal0.0-10.0The [facility] HospitalComment on above:Performed By: #### ACBC, BMPF #### Testing performed at [address] [address]Uczblkxbyhj/100 WBC (Bld)85.8 %High37.0-75.0[facility] HospitalComment on above:Performed By: #### ACBC, BMPF #### Testing performed at [address] [address]Eypvxlsxxkt distribution width (RBC) [Ratio]14.5 %Normal 11.5-14.5ASt. Lawrence Rehabilitation CenterComment on above:Performed By: #### ACBC, BMPF #### Testing performed at [address] [address]Xjwkkjzzjl (Bld) [Volume fraction]31.8 %Low36.0-48.0[facility] HospitalComment on above:Performed By: #### ACBC, BMPF #### Testing performed at [address] [address]Wmeewyutxt (Bld) [Mass/Vol]10.6 g/dLLow12.0-16.0[facility] HospitalComment on above:Performed By: #### ACBC, BMPF #### Testing performed at [address] [address]ETF (RBC) [Entitic mass]31.9 jmWtoqta44.0-35.0[facility] HospitalComment on above:Performed By: #### PREMA, BMPF #### Testing performed at [address] [address]DLVR (RBC) [Mass/Vol]33.2 g/xDMueiqw17.0-37.0[facility] HospitalComment on above:Performed By: #### ACBC, BMPF #### Testing performed at [address] [address]EXG (RBC) [Entitic vol]95.9 hLHejfsj11.0-100.0[facility] HospitalComment on above:Performed By: #### ACTRISTIAN, BMPF #### Testing performed at [address] [address]Pnzyrjay mean volume (Bld) [Entitic vol]8.1 fLNormal7.4-11.0 [facility] HospitalComment on above:Performed By: #### ACTRISTIAN, BMPF #### Testing performed at [address] [address]Mroltkyir (Bld) [#/Vol]228 10*3/qBHbpdkk319-797Slwsb Ontario HospitalComment on above:Performed By: #### ACTRISTIAN, BMPF #### Testing performed at [address] [address]WRQ (Bld) [#/Vol]3.31 10*6/uLLow4.0-5.4ASt. [facility]'s [facility] Hospital Comment on above:Performed By: #### ACBC, BMPF #### Testing performed at [address] [address]BOY (Bld) [#/Vol]10.0 10*3/uLNormal3.6-11.0[facility] HospitalComment on above:Performed By: #### ACBC, BMPF #### Testing performed at [address] [address]GQH, EDIF, PLATELETon 26-46-9616OKSFIUUF BASOPHIL COUNT0.0 10*3/uL0.0 - 0.2 10*3/uLRegency Hospital Cleveland WestBasophils/100 WBC (Bld)0.0 %0.0 - 2.0 %[facility] WestDifferential cell count method Nom (Bld)AUTO DIFF%[facility] WestEosinophils (Bld) [#/Vol]0.0 10*3/uL0.0 - 0.7 10*3/uLRegency Hospital Cleveland WestEosinophils/100 WBC (Bld)0.0 %0.0 - 11.0 %[facility] WestErythrocyte distribution width (RBC) [Ratio]14.5 %11.5 - 14.5 %[facility] WestHematocrit (Bld) [Volume fraction]31.8 %Low36.0 - 48.0 %[facility] WestHemoglobin (Bld) [Mass/Vol]10.6 g/dLMiddletown HospitalInterpretation and review of laboratory resultsAbnormKing's Daughters Medical Center OhioLymphocytes (Bld) [#/Vol]0.6 10*3/uLLow1.2 - 3.4 10*3/[facility] Osteopathic ClinicLymphocytes/100 WBC (Bld)5.9 %Low 20.0 - 55.0 %[facility] WestMCH (RBC) [Entitic mass]31.9 pg26.0 - 35.0 PG [facility] WestMCHC (RBC) [Mass/Vol]33.2 g/dLRegency Hospital Cleveland WestMCV (RBC) [Entitic vol]95.9 [facility] HospitalMonocytes (Bld) [#/Vol]0.8 10*3/uLHigh0.0 - 0.7 10*3/uLRegency Hospital Cleveland WestMonocytes/100 WBC (Bld)8.3 %0.0 - 10.0 %[facility] WestNeutrophils (Bld) [#/Vol]8.6 10*3/uLHigh1.4 - 6.5 10*3/uLRegency Hospital Cleveland WestNeutrophils/100 WBC (Bld)85.8 %High37.0 - 75.0 %[facility] Platelet mean volume (Bld) [Entitic vol]8.1 [facility] HospitalPlatelets (Bld) [#/Vol]228 10*3/uL130 - 400 10*3/[facility] ClinicRBC (Bld) [#/Vol]3.31 10*6/uLLow4.0 - 5.4 10*6/[facility] ClinicWBC (Bld) [#/Vol]10.0 10*3/uL3.6 - 11.0 10*3/[facility] Lutheran HospitalECGOrdered By: Thom Jj on [id number] Healthcare Work Phone: TROPONIN I, HIGH SENSITIVITYon 01-13-2024 Interpretation and review of laboratory resultsAbnoSalem City Hospital TROPONIN I, HIGH [id number] pg/mLHigh0 - 12 pg/mLRegency Hospital Cleveland WestComment on above: Indeterminant: >12 to 100 pg/mL female >20 to 100 pg/mL male Indicative of myocardial injury. Serial sampling is recommended, a change of greater than or equal to 20 pg/mL is indicative of acute coronary syndrome. [facility] WestTROPONIN I, HIGH BCHWTOTYLCC37 pg/mLHigh005 Jenkins StreetComment on above:Result Comment: Indeterminant: >12 to 100 pg/mL female >20 to 100 pg/mL male Indicative of myocardial injury. Serial sampling is recommended, a change of greater than or equal to 20 pg/mL is indicative of acute coronary syndrome. Performed By: #### UMIC, UMAC #### Testing performed at [address] [address]BGJZFGKT I, HIGH JDHVVLTZGYW83 pg/mL0 - 12 pg/mLRegency Hospital Cleveland WestComment on above: Indeterminant: >12 to 100 pg/mL female >20 to 100 pg/mL male Indicative of myocardial injury. Serial sampling is recommended, a change of greater than or equal to 20 pg/mL is indicative of acute coronary syndrome. [facility] WestTROPONIN I, HIGH [id number] pg/mLNormal005 Jenkins StreetComment on above:Result Comment: Indeterminant: >12 to 100 pg/mL female >20 to 100 pg/mL male Indicative of myocardial injury. Serial sampling is recommended, a change of greater than or equal to 20 pg/mL is indicative of acute coronary syndrome. Performed By: #### TRO #### Testing performed at [address] [address]CDOIFETV I, HIGH SENSITIVITY9 pg/mL0 - 12 pg/mLRegency Hospital Cleveland WestComment on above: Indeterminant: >12 to 100 pg/mL female >20 to 100 pg/mL male Indicative of myocardial injury. Serial sampling is recommended, a change of greater than or equal to 20 pg/mL is indicative of acute coronary syndrome. [facility] WestTROPONIN I, HIGH SENSITIVITY9 pg/mLNormal0-12The [facility] HospitalComment on above:Result Comment: Indeterminant: >12 to 100 pg/mL female >20 to 100 pg/mL male Indicative of myocardial injury. Serial sampling is recommended, a change of greater than or equal to 20 pg/mL is indicative of acute coronary syndrome. Performed By: #### UMIC, UMAC #### Testing performed at [address] [address]PJ PELVIS 1-2 VIEWSon [id number] PELVIS 1-2 VIEWSEXAM: XR PELVIS 1-2 VIEWS. HISTORY: ANGELIQUE COMPARISON: 12/01/2023. FINDINGS: Single view of the lower pelvis was performed. Right hip prosthesis appears similar to prior. There are interval postsurgical findings of left hip arthroplasty with cerclage wires surrounding the proximal femur. No displaced fracture or malalignment identified on this single image. Subcutaneous and intra-articular air is present. IMPRESSION: Postsurgical findings of left hip arthroplasty.NormalThe Valley HospitalXR Pelvis 2 Viewson [id number]: Postsurgical findings of left hip arthroplasty. RADIOLOGYEXAM: XR PELVIS 1-2 VIEWS. HISTORY: ANGELIQUE COMPARISON: 12/01/2023. FINDINGS: Single view of the lower pelvis was performed. Right hip prosthesis appears similar to prior. There are interval postsurgical findings of left hip arthroplasty with cerclage wires surrounding the proximal femur. No displaced fracture or malalignment identified on this single image. Subcutaneous and intra-articular air is present. RADIOLOGYMoEyad street MD - 01/13/2024 EXAM: XR PELVIS 1-2 [...] IMPRESSION: Postsurgical findings of left hip arthroplasty. Pocket Change CardXR Pelvis 2 ViewsOrdered By: Eyad Aldridge on [id number] Work Phone: BASIC METABOLIC PANELon 79-38-9003Lfxej gap [Moles/Vol]9 mmol/LMMOL/Vehrity SystemCalcium [Mass/Vol]9.1 mg/dLEating Recovery Center A Behavioral HospitalMetaCert SystemChloride [Moles/Vol]105 mmol/Vehrity SystemComment on above: Please note: Triglyceride levels of 600mg/dL or higher may positively bias chloride results by approximately 2.1 mmolCO2 [Moles/Vol]24 mmol/[facility]hrity SystemCreatinine [Mass/Vol]0.70 mg/dLPocket Change CardGFR COMMENTAverage GFR for 70+ years old = 75.[employer] [employer] [facility]ley Medical CenterComment on above:Chronic Kidney disease, GFR = <60. Kidney failure, GFR = <15. The GFR estimate is not adjusted for extreme body surface area or acute process, nor has it been validated for women or ethnic groups other than and . GFR/1.73 sq M.predicted among blacks MDRD (S/P/Bld) [Vol rate/Area]103 mL/min/{1.73_m2}ml/min/1.73sq.AZBallista Securities SystemGFR/1.73 sq M.predicted among non-blacks MDRD (S/P/Bld) [Vol rate/Area]85 mL/min/{1.73_m2}ml/min/1.73sq.AZBallista Securities SystemGlucose post fast [Mass/Vol]179 mg/dLHighEating Recovery Center A Behavioral HospitalMetaCert [facility] Medical CenterComment on above: NORMAL <100 mg/dL PREDIABETES 101-126 mg/dL DIABETES 126 mg/dL or higher Interpretation and review of laboratory resultsAbnormalAMetaCert System Potassium [Moles/Vol]4.0 mmol/Vehrity SystemSodium [Moles/Vol]138 mmol/L [facility] WestUrea nitrogen [Mass/Vol]16 mg/dLWilson Memorial HospitalBMP FASTINGon 97-53-5064Nsvpb gap [Moles/Vol]9 mmol/LNormalThe Valley HospitalComment on above:Performed By: #### SAURAV EMERSON #### Testing performed at [address] [address]Nenqgsu [Mass/Vol]9.1 mg/dLNormal8.4-10.2ASt. [facility] Comment on above:Performed By: #### SAURAV EMERSON #### Testing performed at [address] [address]Xmgakjwt [Moles/Vol]105 mmol/EAjfcin65-911ZomzuThe Valley HospitalComment on above:Result Comment: Please note: Triglyceride levels of 600mg/dL or higher may positively bias chlorideresults by approximately 2.1 mmol Performed By: #### SAURAV EMERSON #### Testing performed at [address] [address]GR9 [Moles/Vol]24 mmol/VDvdubr91-75DgphwThe Valley Hospital Comment on above:Performed By: #### SAURAV EMERSON #### Testing performed at [address] [address]Zvbsduwdpi [Mass/Vol]0.70 mg/dLNormal0.70-1.20The [facility] HospitalComment on above:Performed By: #### SAURAV EMERSON #### Testing performed at [address] [address]TRB. GFR, Dprxjwhj082 ml/min/1.73sq.mNMimbres Memorial HospitalComment on above:Performed By: #### SAURAV EMERSON #### Testing performed at [address] [address]COV. GFR,Non Unipgxqc72 ml/min/1.73sq.[facility] on above:Performed By: #### SAURAV EMERSON #### Testing performed at [address] [address]LDP InformationAverage GFR for 70+ years old = 75.[facility] Memorial HospitalComment on above:Result Comment: Chronic Kidney disease, GFR = <60. Kidney failure, GFR = <15. The GFR estimate is not adjusted for extreme body surface area or acute process, nor has it been validated for women or ethnic groups other than and .Performed By: #### SAURAV EMERSON #### Testing performed at [address] [address]Isosfay [Mass/Vol]179 mg/fJAntp24-098YzwgrThe [facility] Hospital Comment on above:Result Comment: NORMAL <100 mg/dL PREDIABETES 101-126 mg/dL DIABETES 126 mg/dL or higherPerformed By: #### SAURAV EMERSON #### Testing performed at [address] [address]Fjkesyazn [Moles/Vol]4.0 mmol/LNormal3.5-5.1ASt. Lawrence Rehabilitation CenterComment on above:Performed By: #### SAURAV EMERSON #### Testing performed at [address] [address]Oljuuo [Moles/Vol]138 mmol/NLbdltt662-416GkrsfThe Valley Hospital Comment on above:Performed By: #### SAURAV EMERSON #### Testing performed at [address] [address]Mgau nitrogen [Mass/Vol]16 mg/dLNormal7-20The [facility] HospitalComment on above:Performed By: #### SAURAV EMERSON #### Testing performed at [address] [address]AVNht 12-02-7523CCSVFYDH BAS0.0 10*3/uLNormal0.0-0.2ASt. Lawrence Rehabilitation CenterComment on above:Performed By: #### SAURAV EMERSON #### Testing performed at [address] [address]TFCZFXLL EOS0.0 10*3/uLNormal0.0-0.7ASt. [facility] Center Comment on above:Performed By: #### SAURAV EMERSON #### Testing performed at [address] [address]YQMOUPZR NEUTROPHIL COUNT9.4 10*3/uLHigh1.4-6.5ASt. Lawrence Rehabilitation CenterComment on above:Performed By: #### SAURAV EMERSON #### Testing performed at [address] [address]Zrmupghwd/100 WBC (Bld)0.1 %Normal0.0-2.0[facility] on above:Performed By: #### SAURAV EMERSON #### Testing performed at [address] [address]EBASMGNHC DIFFNormalASt. Lawrence Rehabilitation CenterComment on above: Performed By: #### SAURAV EMERSON #### Testing performed at [address] [address]Ycivqsxmbhk/100 WBC (Bld)0.0 %Normal0.0-11.0The [facility] HospitalComment on above:Performed By: #### SAURAV EMERSON #### Testing performed at [address] [address]Dckhmopstri (Bld) [#/Vol]0.6 10*3/uLLow1.2-3.4ASt. Lawrence Rehabilitation CenterComment on above:Performed By: #### SAURAV EMERSON #### Testing performed at [address] [address]Spahfoddzgx/100 WBC (Bld)5.9 %Low20.0-55.0The [facility] [address]Com[address] [facility] on above:Performed By: #### SAURAV EMERSON #### Testing performed at [address] [address]Knmaabvug (Bld) [#/Vol]0.5 10*3/uLNormal0.0-0.7ASt. Joseph's Regional Medical Center HospitalComment on above:Performed By: #### SAURAV EMERSON #### Testing performed at [address] [address]Whweiohrj/100 WBC (Bld)4.5 %Normal0.0-10.0The [facility] HospitalComment on above:Performed By: #### SAURAV EMERSON #### Testing performed at [address] [place] [address]Sntobuurvyw/100 WBC (Bld)89.5 %High37.0-75.0[facility] HospitalComment on above:Performed By: #### IDANIA UMAC #### Testing performed at [address] [address]Xdmwursmstu distribution width (RBC) [Ratio]14.3 %Normal 11.5-14.5ASt. Joseph's Regional Medical Center HospitalComment on above:Performed By: #### IDANIA UMAC #### Testing performed at [address] [address]Vedwjgauol (Bld) [Volume fraction]33.3 %Low36.0-48.0[facility] HospitalComment on above:Performed By: #### IDANIA UMAC #### Testing performed at [address] [address]Ibjettnchs (Bld) [Mass/Vol]10.9 g/dLLow12.0-16.0[facility] HospitalComment on above:Performed By: #### IDANIA UMAC #### Testing performed at [address] [address]JNK (RBC) [Entitic mass]31.4 rgQrbyub78.0-35.0[facility] HospitalComment on above:Performed By: #### IDANIA, UMAC #### Testing performed at [address] [address]PUPO (RBC) [Mass/Vol]32.8 g/wFJrnmrz96.0-37.0[facility] HospitalComment on above:Performed By: #### IDANIA, UMAC #### Testing performed at [address] [address]QOJ (RBC) [Entitic vol]95.7 tTFmuaef63.0-100.0[facility] HospitalComment on above:Performed By: #### IDANIA, UMAC #### Testing performed at [address] [address]Sjfbsfxd mean volume (Bld) [Entitic vol]8.2 fLNormal7.4-11.0 [facility]illiner HospitalComment on above:Performed By: #### SAURAV EMERSON #### Testing performed at [address] [address]Sqifizjxr (Bld) [#/Vol]247 10*3/pQSvexze621-491EjsstThe Valley HospitalComment on above:Performed By: #### SAURAV EMERSON #### Testing performed at [address] [address]SUE (Bld) [#/Vol]3.48 10*6/uLLow4.0-5.4ASt. [facility] Comment on above:Performed By: #### SAURAV EMERSON #### Testing performed at [address] [address]TMZ (Bld) [#/Vol]10.5 10*3/uLNormal3.6-11.0The Valley HospitalComment on above:Performed By: #### SAURAV EMERSON #### Testing performed at [address] [address]SUA, EDIF, PLATELETon 79-93-3835SXLDCSYP BASOPHIL COUNT0.0 10*3/uL0.0 - 0.2 10*3/[facility] ClinicBasophils/100 WBC (Bld)0.1 %0.0 - 2.0 %[facility] WestDifferential cell count method Nom (Bld)AUTO DIFF%[facility] WestEosinophils (Bld) [#/Vol]0.0 10*3/uL0.0 - 0.7 10*3/uLRegency Hospital Cleveland WestEosinophils/100 WBC (Bld)0.0 %0.0 - 11.0 %[facility] WestErythrocyte distribution width (RBC) [Ratio]14.3 %11.5 - 14.5 %[facility] WestHematocrit (Bld) [Volume fraction]33.3 %Low36.0 - 48.0 %[facility] WestHemoglobin (Bld) [Mass/Vol]10.9 g/dLMiddletown HospitalInterpretation and review of laboratory resultsAbnormalAUK HealthcareLymphocytes (Bld) [#/Vol]0.6 10*3/uLLow1.2 - 3.4 10*3/[facility] ClinicLymphocytes/100 WBC (Bld)5.9 %Low 20.0 - 55.0 %[facility] WestMCH (RBC) [Entitic mass]31.4 pg26.0 - 35.0 PG [facility] WestMCHC (RBC) [Mass/Vol]32.8 g/dLRegency Hospital Cleveland WestMCV (RBC) [Entitic vol]95.7 [facility] HospitalMonocytes (Bld) [#/Vol]0.5 10*3/uL0.0 - 0.7 10*3/[facility] ClinicMonocytes/100 WBC (Bld)4.5 %0.0 - 10.0 %[facility] WestNeutrophils (Bld) [#/Vol]9.4 10*3/uLHigh1.4 - 6.5 10*3/[facility] ClinicNeutrophils/100 WBC (Bld)89.5 %High37.0 - 75.0 %[facility] Platelet mean volume (Bld) [Entitic vol]8.2 [facility] HospitalPlatelets (Bld) [#/Vol]247 10*3/uL130 - 400 10*3/[facility] ClinicRBC (Bld) [#/Vol]3.48 10*6/uLLow4.0 - 5.4 10*6/[facility] ClinicWBC (Bld) [#/Vol]10.5 10*3/uL3.6 - 11.0 10*3/[facility] HospitalGENERAL PROCEDUREOrdered By: Vj Alvarez on [phone] Healthcare Work Phone: Radiology Study observation (narrative)[facility] Work Phone: PROTIMEon [phone] Coag (PPP) [Relative time]1.09 {INR}Normal0.85-1.10ASt. Lawrence Rehabilitation CenterComment on above:Result Comment: 2.0-3.0 THERAPEUTIC RANGE 2.5-3.5 MECHANICAL VALVE RANGEPerformed By: #### PT #### Testing performed at [address], [place] [address]ZZ Coag (PPP) [Time]14.2 sVorwoc30.8-14.4ASt. [facility] Rehabilitation Center Comment on above:Performed By: #### PT #### Testing performed at [address] [address]QAXJSNW-VNKyl 07-85-8471CFC Coag (PPP) [Relative time]1.09 {INR}0.85 - 1.10AUK HealthcareComment on above: 2.0-3.0 THERAPEUTIC RANGE 2.5-3.5 MECHANICAL VALVE RANGE PT Coag (PPP) [Time]14.2 [facility] CenterREPEAT ABO/RHon 25-82-9828NLPHFN ABO/RHPositiveNormMesilla Valley HospitalComment on above: Performed By: #### UMIC, UMAC #### Testing performed at [address] [address]MQTIRS ABO/RH (D) TYPINGon 32-17-2548NRF and Rh group Nom (Bld )PositiveWilson Memorial HospitalXR Pelvis 2 Viewson 03-04-4730Yejpibcpr Study observation (narrative)[facility] WestURINE CULTUREon 44-72-7383Zjiicqch identified Cx Nom (U)SPECIMEN DESCRIPTION URINE CLEAN CATCH UA DIPSTICK LEUKOCYTE POSITIVE * Result Note: NITRITE POSITIVE * COLONY COUNT >100,000 C/C/ML CULTURE KLEBSIELLA PNEUMONIAE * Result Note: Testing performed at [place], [place] [address] * REPORT STATUS 12/18/2023 * Result Note: FINAL * ORGANISM KLEBSIELLA PNEUMONIAE * Result Note: KLEBSIELLA PNEUMONIAE * METHOD GRUPO AMPICILLIN >=32 RESISTANT AMPICILLIN/SULBACTAM 8 SUSCEPTIBLE CEFTRIAXONE <=1 SUSCEPTIBLE CEFAZOLIN <=4 SUSCEPTIBLE IMIPENEM <=0.25 SUSCEPTIBLE GENTAMICIN <=1 SUSCEPTIBLE TRIMETH-SULFA <=20 SUSCEPTIBLE AMOXICILLIN/CLAVULANIC A <=2 SUSCEPTIBLE NITROFURANTOIN 128 RESISTANT PIPERACILLIN/TAZOBACTAM 8 SUSCEPTIBLE LEVOFLOXACIN <=0.12 SUSCEPTIBLE ESBL NEGATIVE ERTAPENEM <=0.5 SUSCEPTIBLE CEFEPIME <=1 SUSCEPTIBLE CEFTAZIDIME <=1 SUSCEPTIBLERockingham Memorial HospitalComment on above: Performed By: #### AURNC #### Testing performed at [address] [address] Testing performed at [address] [address]IGHpc 35-99-4183BSYKPVTE BAS0.1 10*3/uLNormal0.0-0.2ASt. Lawrence Rehabilitation CenterComment on above:Performed By: #### SAURAV EMERSON #### Testing performed at [address] [address]MBAMVUSN EOS0.1 10*3/uLNormal0.0-0.7ASt. [facility] Center Comment on above:Performed By: #### SAURAV EMERSON #### Testing performed at [address] [address]MOFUQQVN NEUTROPHIL COUNT3.5 10*3/uLNormal1.4-6.5ASt. Lawrence Rehabilitation CenterComment on above:Performed By: #### SAURAV EMERSON #### Testing performed at [address] [address]Ilnjuxahk/100 WBC (Bld)0.9 %Normal0.0-2.0[facility] Comment on above:Performed By: #### SAURAV EMERSON #### Testing performed at [address] [address]AHPBZDXAU DIFFNormMesilla Valley HospitalComment on above: Performed By: #### SAURAV EMERSON #### Testing performed at [address] [address]Ygoevuleqqs/100 WBC (Bld)1.8 %Normal0.0-11.0The Valley HospitalComment on above:Performed By: #### SAURAV EMERSON #### Testing performed at [address] [address]Lbmogxurtiu (Bld) [#/Vol]1.4 10*3/uLNormal1.2-3.4AZanesville City Hospital on above:Performed By: #### IDANIA UMAC #### Testing performed at [address] [address]Dmdgrieqnoj/100 WBC (Bld)25.0 %Utvpih52.0-55.0The [facility] HospitalComascension [facility] on above:Performed By: #### IDANIA, UMAC #### Testing performed at [address] [address]Wcrfvebkm (Bld) [#/Vol]0.5 10*3/uLNormal0.0-0.7AZanesville City Hospital on above:Performed By: #### IDANIA, UMAC #### Testing performed at [address] [address]Kmdxkigvc/100 WBC (Bld)9.1 %Normal0.0-10.0[facility] on above:Performed By: #### IDANIA UMAC #### Testing performed at [address] [address]Lebzsczycok/100 WBC (Bld)63.2 %Ymwnie87.0-75.0[facility] on above:Performed By: #### IDANIA, UMAC #### Testing performed at [address] [address]Wcdmkptqeju distribution width (RBC) [Ratio]14.9 %High11.5-14.5 [facility] on above:Performed By: #### IDANIA, UMAC #### Testing performed at [address] [address]Ckqbqbstbl (Bld) [Volume fraction]39.2 %Poipvz54.0-48.0[facility] on above:Performed By: #### IDANIA, UMAC #### Testing performed at [address] [address]Kgvlceesdt (Bld) [Mass/Vol]12.8 g/aELropsb31.0-16.0[facility]illiner HospitalComment on above:Performed By: #### SAURAV EMERSON #### Testing performed at [address] [address]TPY (RBC) [Entitic mass]31.1 kgYyldea54.0-35.0[facility] HospitalComment on above:Performed By: #### SAURAV EMERSON #### Testing performed at [address] [address]EXFT (RBC) [Mass/Vol]32.6 g/uYDwyzga92.0-37.0[facility] HospitalComment on above:Performed By: #### SAURAV EMERSON #### Testing performed at [address] [address]ROX (RBC) [Entitic vol]95.4 dYNccuse52.0-100.0[facility] HospitalComment on above:Performed By: #### SAURAV EMERSON #### Testing performed at [address] [address]Gezrxwzq mean volume (Bld) [Entitic vol]8.8 fLNormal7.4-11.0 [facility] HospitalComment on above:Performed By: #### SAURAV EMERSON #### Testing performed at [address] [address]Pvitweirj (Bld) [#/Vol]298 10*3/mIMabpyh648-891Spvfl Ontario HospitalComment on above:Performed By: #### SAURAV EMERSON #### Testing performed at [address] [address]KWK (Bld) [#/Vol]4.11 10*6/uLNormal4.0-5.4ASt. Joseph's [facility] Center HospitalComment on above:Performed By: #### SAURAV EMERSON #### Testing performed at [address] [address]DMQ (Bld) [#/Vol]5.6 10*3/uLNormal3.6-11.0[facility] HospitalComment on above:Performed By: #### SAURAV EMERSON #### Testing performed at [address], [place] [address]EBW FASTINGon 4A:G RATIO1.3 RATIONormalChrist Hospital HospitalComment on above:Performed By: #### SAURAV EMERSON #### Testing performed at [address] [address]RJPOCIZ6.0 G/dlNormal3.5-5.0The Valley HospitalComment on above:Performed By: #### SAURAV EMERSON #### Testing performed at [address] [address]YNG [Catalytic activity/Vol]89 U/HJelzav06-813XfcqyThe Valley HospitalComment on above:Performed By: #### SAURAV EMERSON #### Testing performed at [address] [address]DWY [Catalytic activity/Vol]16 U/LNormal<35The Valley HospitalComment on above:Performed By: #### SAURAV EMERSON #### Testing performed at [address] [address]BHB [Catalytic activity/Vol]25 U/HWkezjl38-05DjzshThe Valley HospitalComment on above:Performed By: #### SAURAV EMERSON #### Testing performed at [address] [address]Atmcargpl [Mass/Vol]0.3 mg/dLNormal0.2-1.3ASt. Lawrence Rehabilitation CenterComment on above:Performed By: #### SAURAV EMERSON #### Testing performed at [address] [address]Zdyzebg [Mass/Vol]9.9 mg/dLNormal8.4-10.2ASt. [facility]'s [facility] Comment on above:Performed By: #### SAURAV EMERSON #### Testing performed at [address] [address]Wfiiwvuw [Moles/Vol]107 mmol/OAwkvav07-663KvfsoThe Valley HospitalComment on above:Result Comment: Please note: Triglyceride levels of 600mg/dL or higher may positively bias chlorideresults by approximately 2.1 mmol Performed By: #### SAURAV EMERSON #### Testing performed at [address] [address]KV7 [Moles/Vol]28 mmol/BDlfxru94-71NpljlThe Valley Hospital Comment on above:Performed By: #### SAURAV EMERSON #### Testing performed at [address] [address]Pulihxpcpz [Mass/Vol]0.80 mg/dLNormal0.70-1.20The [facility] HospitalComment on above:Performed By: #### SAURAV EMERSON #### Testing performed at [address] [address]KCJ. GFR, Besijzew65 ml/min/1.73sq.mNMimbres Memorial HospitalComment on above:Performed By: #### SAURAV EMERSON #### Testing performed at [address] [address]PUH. GFR,Non Zcfpdkol35 ml/min/1.73sq.Brightlook HospitalComment on above:Performed By: #### SAURAV EMERSON #### Testing performed at [address] [address]NHX InformationAverage GFR for 70+ years old = 75.NormalThe Valley HospitalComment on above:Result Comment: Chronic Kidney disease, GFR = <60. Kidney failure, GFR = <15. The GFR estimate is not adjusted for extreme body surface area or acute process, nor has it been validated for women or ethnic groups other than and .Performed By: #### SAURAV EMERSON #### Testing performed at [address] [address]Atlydih [Mass/Vol]115 mg/jTJcpj69-139IsmgsThe Valley Hospital Comment on above:Result Comment: NORMAL <100 mg/dL PREDIABETES 101-126 mg/dL DIABETES 126 mg/dL or higherPerformed By: #### SAURAV EMERSON #### Testing performed at [address] [address]Vrxmzaudi [Moles/Vol]4.0 mmol/LNormal3.5-5.1ASt. Lawrence Rehabilitation CenterComment on above:Performed By: #### UMIC, UMAC #### Testing performed at [address] [address]Mkbnaiq [Mass/Vol]7.2 g/dLNormal6.3-8.2ASt. [facility] Center Comment on above:Performed By: #### IDANIA UMAC #### Testing performed at [address] [address]Vxwvyk [Moles/Vol]140 mmol/KNvcagn756-535ImxnwThe Valley Hospital Comment on above:Performed By: #### SAURAV EMERSON #### Testing performed at [address] [address]Obem nitrogen [Mass/Vol]19 mg/dLNormal7-20The Valley HospitalComment on above:Performed By: #### SAURAV EMERSON #### Testing performed at [address] [address]HWXZNBPDXI A1Con 45-43-7083Udglust [Mass/Vol]117 mg/dLNormal The Valley HospitalComment on above:Performed By: #### HA1CT #### Testing performed at [address] [address]CpP4e (Bld) [Mass fraction]5.7 %Normal0-6ASt. [facility] Rehabilitation Center Comment on above:Result Comment: NORMAL <5.7% PREDIABETES 5.7-6.4% DIABETES 6.5% OR HIGHERPerformed By: #### HA1CT #### Testing performed at [address] [address]JWQW SCREENon 57-42-6761BRKX DNA SMILEY+probe Ql (Unsp spec) NegativeNormalNEGInspira Medical Center ElmerComment on above:Performed By: #### MRSAST #### Testing performed at [address] [address]GOJOW AUREUS SCREENPositiveAbnormakNEGInspira Medical Center ElmerComment on above:Result Comment: TESTING PERFORMED BY PCRPerformed By: #### MRSAST #### Testing performed at [address] [address]XVYTWRRaq 74-29-2626USZ Coag (PPP) [Relative time]1.47 {INR} High0.85-1.10ASt. Joseph's Regional Medical Center HospitalComment on above:Result Comment: 2.0-3.0 THERAPEUTIC RANGE 2.5-3.5 MECHANICAL VALVE RANGEPerformed By: #### SAURAV EMERSON #### Testing performed at [address], [place] [address]WF Coag (PPP) [Time]17.9 sHigh11.8-14.4ASt. [facility] Rehabilitation Center Comment on above:Performed By: #### SAURAV EMERSON #### Testing performed at [address] [address]ELUL AND SCREEN CROSSMATCH CONVERTIBLEon 42-79-5547HESP AND SCREEN CROSSMATCH CONVERTIBLEWORKUP EXPIRES 01/13/2024,2359 ABO/RH(D) O POSITIVE ANTIBODY SCREEN NEGATIVE ARM BAND NUMBER [id number] Memorial HospitalComment on above:Performed By: #### SAURAV EMERSON #### Testing performed at [address], [place] [address]PIFOD MACROSCOPICon 49-10-3508Uoydhkdpg Ql (U)NegativeNormal NEGATIVEChrist Hospital HospitalComment on above:Performed By: #### SAURAV EMERSON #### Testing performed at [address] [place] [address]Njzzrhd (U)SLIGHTLY CLOUDYAbnormalCLEARASt. Lawrence Rehabilitation Center Comment on above:Performed By: #### SAURAV EMERSON #### Testing performed at [address] [place] [address]Wtali (U)YELLOWNormalYELLOWThe Valley HospitalComment on above:Performed By: #### SAURAV EMERSON #### Testing performed at [address] [place] [address]Oqekkyn Ql (U)NegativeNormalNEGATIVEThe [facility] Hospital Comment on above:Performed By: #### SAURAV EMERSON #### Testing performed at [address], [place] [address]lB (U)5.5 [pH]Normal5.0-7.0The Valley HospitalComment on above:Performed By: #### UMIC, UMAC #### Testing performed at [address] [address]Oaleosr (U) [Mass/Vol]30 mg/dLAbnormalNEGInspira Medical Center ElmerComment on above:Performed By: #### TAINA EMERSONAC #### Testing performed at [address] [address]AOSRV HEMOGLOBINMODERATEAbnoNorthern Navajo Medical Center Comment on above:Performed By: #### IDANIA UMAC #### Testing performed at [address] [place] [address]QJJZQ KETONENegativeNormalNEGInspira Medical Center ElmerComment on above:Performed By: #### IDANIA UMAC #### Testing performed at [address] [address]MZEBE LEUKOTESTSMALLAbnoNorthern Navajo Medical Center Comment on above:Performed By: #### IDANIA UMAC #### Testing performed at [address] [address]GGGLS NITRATESPositiveAbnormalNEGInspira Medical Center Elmer Comment on above:Performed By: #### IDANIA UMAC #### Testing performed at [address] [address]NIZDS SPEC GRAVITY1.246Kepnlc9.010-1.025[facility] Comment on above:Performed By: #### IDANIA UMAC #### Testing performed at [address] [address]Kfpiphzfhcxw Qn (U)0.2 {Monique'U}/dLNormal0.2-1.0The [facility] HospitalComment on above:Performed By: #### IDANIA UMAC #### Testing performed at [address] [address]ORYPI MICROSCOPICon 48-57-1287KBDYLSIW6+AbnormalNEGInspira Medical Center ElmerComment on above:Performed By: #### IDANIA UMAC #### Testing performed at [address] [address]SHFKFLCZUFatthhTZERVnocj Ontario HospitalComascension [facility] on above: Performed By: #### IDANIA UMAC #### Testing performed at [address] [address]JFBWKFDCAEYTtuulzWTGLXfbfa Dilliner HospitalComment on above: Performed By: #### IDANIA, UMAC #### Testing performed at [address] [address]Cnlckvvvxw cells LM Ql (Urine sed)1 TO 5NormalAviMiller Children's Hospital HospitalComment on above:Performed By: #### IDANIA, UMAC #### Testing performed at [address] [address]Vmlhq Ql (Urine sed)NegativeNormalNEGATIVEChrist Hospital HospitalComment on above:Performed By: #### IDANIA, UMAC #### Testing performed at [address] [address]MYAIL COMMENTREFLEX CULTURE PER ESTABLISHED CRITERIA.Normal [facility] HospitalComascension [facility] on above:Performed By: #### IDANIA, UMAC #### Testing performed at [address] [address]IINXB RBC'S1 TO 5NormalNEGATIVEChrist Hospital HospitalComment on above:Performed By: #### IDANIA, UMAC #### Testing performed at [address] [address]EYVTV WBC'STOO NUMEROUS TO COUNTAbnormalNEGATIVEChrist Hospital HospitalComment on above:Performed By: #### IDANIA, UMAC #### Testing performed at [address] [address]XIB AND AUTO DIFFon 07-92-0959YRMNYRXM BASOPHIL0.1 X10E9/L Normal0.0-0.2[facility] Rivera Medical CenterComment on above:Performed By: #### CBCA, CMP, 64308-4, 80087-7, 3084-1, 3016-3, 3024-7, 3051-0, 2284-8, 2132-9 #### [facility] ([id number]) [address], [address] [place], [place] [address]DQQLUMSV NEUTROPHIL4.0 X10E9/LNormal1.5-6.6Pro[facility] Rivera Medical CenterComment on above:Performed By: #### CBCA, CMP, 17794-4, 31387-1, 3084-1, 3016-3, 3024-7, 3051-0, 2284-8, 2132-03 #### [facility] ([id number]) [address], [address] [place], [place] [address]Ssftqotyv/100 WBC (Bld)1.0 %[facility] Comment on above:Performed By: #### CBCA, CMP, 18942-2, 02625-8, 3084-1, 3016-3, 3024-7, 3051-0, 2284-8, 2132-03 #### [facility] ([id number]) [address], [address] [place], [place] [address]Vvprubqtomy (Bld) [#/Vol]0.1 10*3/uLNormal0.0-0.4[facility] HospitalComment on above:Performed By: #### CBCA, CMP, 41386-4, 08730-3, 3084-1, 3016-3, 3024-7, 3051-0, 2283-8, 2132-03 #### [facility] ([id number]) [address], [address] [place], [place] [address]Lyqywhdzhhz/100 WBC (Bld)1.8 %[facility] Comment on above:Performed By: #### CBCA, CMP, 60323-3, 45953-4, 3084-1, 3016-3, 3024-7, 3051-0, 2284-8, 2132-03 #### [facility] ([id number]) [address], [address] [place], [place] [address]Snwowyjurkw distribution width (RBC) [Ratio]15.2 %High11.5-15.0 [facility] HospitalComment on above:Performed By: #### CBCA, CMP, 75687- 1, 40665-5, 3084-1, 3016-3, 3024-7, 3051-0, 2284-8, 2132-03 #### [facility] ([id number]) [address], [address] [place], [place] [address]Syvyxcqtha (Bld) [Volume fraction]36.9 %Azedwu85-16KvlNfnxrkMemorial Hermann The Woodlands Medical CenterComment on above:Performed By: #### CBCA, CMP, 12437-2, 56580-4, 3084-1, 3016-3, 3024-7, 3051-0, 2284-8, 2132-03 #### [facility] ([id number]) [address], [address] [place], [place] [address]Zklhutsues (Bld) [Mass/Vol]12.3 g/sRZlyvmg09.7-15.5PBethesda North HospitalComment on above:Performed By: #### CBCA, CMP, 26324-2, 50043-2, 3084-1, 3016-3, 3024-7, 3051-0, 2284-8, 2132-03 #### [facility] ([id number]) [address], [address] [place], [place] [address]Vbzssyyyspy (Bld) [#/Vol]1.5 10*3/uLNormal1.0-3.5PBethesda North HospitalComment on above:Performed By: #### CBCA, CMP, 49551-7, 52033-3, 3084-1, 3016-3, 3024-7, 3051-0, 2284-8, 2132-03 #### [facility] ([id number]) [address], [address] [place], [place] [address]Movlowmqzuf/100 WBC (Bld)23.4 %NormalMarietta Memorial Hospital Comment on above:Performed By: #### CBCA, CMP, 42234-0, 95977-7, 3084-1, 3016-3, 3024-7, 3051-0, 2284-8, 9 #### [facility] ([id number]) [address], [address] [place], [place] [address]HZV (RBC) [Entitic mass]30.8 aoKkhpnu93-44JrwBkljcwMemorial Hermann The Woodlands Medical CenterComment on above:Performed By: #### CBCA, CMP, 95181-2, 71040-2, 3084-1, 3016-3, 3024-7, 3051-0, 2284-8, 2132-03 #### [facility] ([id number]) [address], [address] [place], [place] [address]KKMY (RBC) [Mass/Vol]33.3 g/bVIspvuj63-10HovBwhbahMemorial Hermann The Woodlands Medical CenterComment on above:Performed By: #### CBCA, CMP, 93394-7, 42036-0, 3084-1, 3016-3, 3024-7, 3051-0, 2284-8, 2132-03 #### [facility] ([id number]) [address], [address] [place], [place] [address]TMI (RBC) [Entitic vol]93 tIRmcyec69-759HutVyovjl [facility]remont HospitalComment on above:Performed By: #### CBCA, CMP, 91246-9, 31244-8, 3084-1, 3016-3, 3024-7, 3051-0, 2284-8, 2132-03 #### [facility] ([id number]) [address], [address] [place], [place] [address]Mouzipkdo (Bld) [#/Vol]0.6 10*3/uLNormal0-0.9[facility] HospitalComment on above:Performed By: #### CBCA, CMP, 39367-2, 98468-6, 3084-1, 3016-3, 3024-7, 3051-0, 2284-8, 9 #### [facility] ([id number]) [address], [address] [place] [address]Irjbkoupa/100 WBC (Bld)9.2 %NormalMarietta Memorial Hospital Comment on above:Performed By: #### CBCA, CMP, 02508-4, 94064-9, 3084-1, 3016-3, 3024-7, 3051-0, 2284-8, 9 #### [facility] ([id number]) [address], [address] [place] [address]Ixrdgajdevg/100 WBC (Bld)64.6 %NormalMarietta Memorial Hospital Comment on above:Performed By: #### CBCA, CMP, 10529-4, 72177-2, 3084-1, 3016-3, 3024-7, 3051-0, 2284-8, 2132-03 #### [facility] ([id number]) [address], [address] [place] [address]Jywlmyrw mean volume (Bld) [Entitic vol]8.0 fLNormal7-12 [facility] HospitalComment on above:Performed By: #### CBCA, CMP, 92985- 1, 91965-0, 3084-1, 3016-3, 3024-7, 3051-0, 2284-8, 2132-03 #### [facility] ([id number]) [address], [address] [place] [address]Vkhbqjazc (Bld) [#/Vol]492 10*3/qDTmak017-470QqlQcrftxMarietta Memorial HospitalComment on above:Performed By: #### CBCA, CMP, 13402-2, 80527-4, 3084-1, 3016-3, 3024-7, 3051-0, 2284-8, 2132-03 #### [facility] ([id number]) [address], [address] [place] [address]LRQ COUNT3.99 X10E12/LNormal3.80-5.20[facility] Comment on above:Performed By: #### CBCA, CMP, 02368-9, 23467-4, 3084-1, 3016-3, 3024-7, 3051-0, 2284-8, 2132-03 #### [facility] ([id number]) [address], [address] [place], [place] [address]IFV (Bld) [#/Vol]6.2 10*3/uLNormal4.0-11.0ProMemorial Hermann The Woodlands Medical CenterComment on above:Performed By: #### CBCA, CMP, 61781-9, 94281-5, 3084-1, 3016-3, 3024-7, 3051-0, 2284-8, 2132-03 #### [facility] ([id number]) [address], [address] [place], [place] [address]MYTDQGHZGHKDQ METABOLIC PANELon 86-59-3439Wfflzfr [Mass/Vol]3.8 g/dLNormal3.2-5.3PBethesda North HospitalComment on above:Performed By: #### CBCA, CMP, 44882-6, 56296-6, 3084-1, 3016-3, 3024-7, 3051-0, 2283-8, 2132-03 #### [facility] ([id number]) [address], [address] [place], [place] [address]XAK [Catalytic activity/Vol]92 U/GBmygcm10-698AnaYhkvizMarietta Memorial HospitalComment on above:Performed By: #### CBCA, CMP, 72312-6, 06921-4, 3084-1, 3016-3, 3024-7, 3051-0, 2284-8, 2132-03 #### [facility] ([id number]) [address], [address] [place], [place] [address]LIA [Catalytic activity/Vol]9 U/LNormal0-31PBethesda North HospitalComment on above:Performed By: #### CBCA, CMP, 26805-6, 96647-8, 3084-1, 3016-3, 3024-7, 3051-0, 2284-8, 2132-03 #### [facility] ([id number]) [address], [address] [place] [address]Zlcwf gap [Moles/Vol]9 mmol/LNormal5-15ProMemorial Hermann The Woodlands Medical CenterComment on above:Performed By: #### FLO, TAY, 73480-3, 75860-0, 3084-1, 3016-3, 3024-7, 3051-0, 2284-8, 2132-03 #### [facility] ([id number]) [address], [address] [place], [place] [address]PHM [Catalytic activity/Vol]16 U/LNormal0-41ProMemorial Hermann The Woodlands Medical CenterComment on above:Performed By: #### FLO, TAY, 95529-7, 49964-9, 3084-1, 3016-3, 3024-7, 3051-0, 2284-8, 2132-03 #### [facility] ([id number]) [address], [address] [place] [address]Wbxdfnxqs [Mass/Vol]0.5 mg/dLNormal0.3-1.2PBethesda North HospitalComment on above:Performed By: #### FLO, TAY, 43845-9, 76188-2, 3084-1, 3016-3, 3024-7, 3051-0, 2284-8, 2132-03 #### [facility] ([id number]) [address], [address] [place] [address]Zdzsdzi [Mass/Vol]9.9 mg/dLNormal8.5-10.5PBethesda North HospitalComment on above:Performed By: #### STEFFIA, CMP, 93037-8, 30064-2, 3084-1, 3016-3, 3024-7, 3051-0, 2284-8, 2132-03 #### [facility] ([id number]) [address], [address] [place] [address]Zyfnocfq [Moles/Vol]102 mmol/WUwexqn75-768MbqMbmytgMarietta Memorial HospitalComment on above:Performed By: #### TAY ROSSI, 34976-1, 03409-5, 3084-1, 3016-3, 3024-7, 3051-0, 2283-8, 2132-03 #### [facility] ([id number]) [address], [address] [place], [place] [address]LE0 [Moles/Vol]27 mmol/ETcspru88-42AiiAdhlqxBethesda North Hospital Comment on above:Performed By: #### TAY ROSSI, 79999-1, 76054-1, 3084-1, 3016-3, 3024-7, 3051-0, 2283-8, 2132-03 #### [facility] ([id number]) [address], [address] [place], [place] [address]Uoprjnsvia [Mass/Vol]0.75 mg/dLNormal0.40-1.00ProMemorial [facility]lands Medical CenterComment on above:Result Comment: METHOD TRACEABLE TO IDMS STANDARD Performed By: #### TAY ROSSI, 54248-1, 02155-5, 3084-1, 3016-3, 3024-7, 3051-0, 2283-8, 2132-03 #### [facility] ([id number]) [address], [address] [place], [place] [address]ZKX/1.73 sq M.predicted among non-blacks MDRD (S/P/Bld) [Vol rate/Area]80 mL/min/{1.73_m2}Normal>59ProMemorial Herm[facility] Wood[facility] Medical CenterComment on above:Result Comment: Reported eGFR is based on the CKD-EPI 2020 equation that does not use a race coefficient.Performed By: #### TAY ROSSI, 04073-4, 34218-3, 3084- 1, 3016-3, 3024-7, 3051-0, 2284-8, 2132-03 #### [facility] ([id number]) [address], [address] [place] [address]Arptgck [Mass/Vol]98 mg/rUSfaofy56-30EiwHcqbzdMemorial Hermann [facility]lands [facility] Center Comment on above:Performed By: #### FLO, TAY, 06383-8, 68413-4, 3084-1, 3016-3, 3024-7, 3051-0, 2284-8, 2132-03 #### [facility] ([id number]) [address], [address] [place], [place] [address]Efrnvuhvp [Moles/Vol]4.4 mmol/LNormal3.5-5.0ProMemorial [facility] Medical CenterComment on above:Performed By: #### TAY ROSSI, 98866-7, 07913-4, 4-1, 3016-3, 3024-7, 3051-0, 4-8, 2132-03 #### [facility] ([id number]) [address], [address] [place], [place] [address]Ucgceen [Mass/Vol]7.5 g/dLNormal6.0-8.0ProMem[facility] Medical CenterComment on above:Performed By: #### FLO, CMP, 81051-7, 98436-0, 4-1, 3016-3, 3024-7, 3051-0, 2284-8, 2132-03 #### [facility] ([id number]) [address], [address] [place], [place] [address]Wgxvuo [Moles/Vol]138 mmol/EVooyns786-704DlsBmcsdh [facility]remont HospitalComment on above:Performed By: #### STEFFIA, CMP, 04264-1, 16031-3, 3084-1, 3016-3, 3024-7, 3051-0, 2284-8, 2132-03 #### [facility] ([id number]) [address] [facility], [address] [place], [place] [address]Snwj nitrogen [Mass/Vol]21 mg/dLNormal5-27Z[facility] Hospitalca [facility] CenterComment on above:Performed By: #### FLO, TAY, 66476-6, 36084-7, 3084-1, 3016-3, 3024-7, 3051-0, 2284-8, 2132-03 #### [facility] ([id number]) [address] [facility], [address] [place], [place] [address]PIYE T3on 52-09-4048Bxhq T3 [Mass/Vol]3.02 pg/mLNormal2.50-3.[address] [address] [facility] on above:Performed By: #### FLO, TAY, 33381- 1, 20725-6, 3084-1, 3016-3, 3024-7, 3051-0, 2283-8, 2132-03 #### [facility] ([id number]) [address] [facility], [address] [place], [place] [address]YLIN T4on 78-78-7371Juvk T4 [Mass/Vol]1.24 ng/dLNormal0.61-1.[address] [facility] on above:Performed By: #### FLO, TAY, 77248- 1, 85943-3, 3084-1, 3016-3, 3024-7, 3051-0, 2283-8, 2132-03 #### [facility] ([id number]) [address] [facility], [address] [place], [place] [address]Ntpocw [Mass/Vol]on 73-62-7463IVCFD ACID16.5 ng/mLNormal>5.[address] [facility] on above:Result Comment: NEW REFERENCE RANGE Performed By: #### STEFFIA, CMP, 93972-4, 84284-6, 3084-1, 3016-3, 3024-7, 3051-0, 228-8, 2132-03 #### [facility] ([id number]) [address] [facility], [address] [place], [place] [address]DBM A1C (GLYCO-HGB)on 67-91-7329Iktvznt [Mass/Vol]120 mg/dL NormalProMemorial Hermann The Woodlands Medical CenterComment on above:Performed By: #### FLO, TAY, 72039-2, 96274-5, 3084-1, 3016-3, 3024-7, 3051-0, 2284-8, 2132-03 #### [facility] ([id number]) [address] [facility], [address] [place], [place] [address]GfV4a (Bld) [Mass fraction]5.8 %High4.4-5.6ProMemorial [facility] Medical CenterComment on above:Result Comment: NOTE ADA Guidelines Result HgbA1c Normal : less than 5.7 % Prediabetes : 5.7 % to 6.4 % Diabetes : > 6.4 % Use with caution in patients with abnormal hemoglobin variants as the half-life of red blood cells and in vivo glycation rates are affected.Performed By: #### FLO, TAY, 45829-7, 25015-4, 3084-1, 3016-3, 3024-7, 3051-0, 2284-8, 2132-03 #### [facility] ([id number]) [address] [facility] [facility], [address] [place], [place] [address]Xixjm 1996 panelon 66-68-6315Gztxkfcscsd [Mass/Vol]157 mg/dL Bpsjmw254-143NdnVdagjlMemorial Hermann The Woodlands Medical CenterComment on above:Performed By: #### FLO, TAY, 72126-3, 16846-6, 3084-1, 3016-3, 3024-7, 3051-0, 2284-8, 2132-03 #### [facility] ([id number]) [address] [facility], [address] [place], [place] [address]Pnggzuket[place] in HDL [Mass/Vol]57 mg/dLNormal>39Pro[facility] Medical CenterComment on above:Result Comment: HDL <40 mg/dL - High Risk HDL > or = 40mg/dL- Desirable HDL >60 mg/dL - Negative Risk Performed By: #### TAY ROSSI, 73733-4, 39747-0, 3084-1, 3016-3, 3024-7, 3051-0, 2284-8, 9 #### [facility] ([id number]) [address] [facility] [facility], [address] [place], [place] [address]Zyleddwzpgb in LDL [Mass/Vol]79 mg/dLNormal<130ProMem[facility] Medical CenterComment on above:Result Comment: LDL <100 mg/dL - Desirable LDL >160 mg/dL - High Risk Performed By: #### TAY ROSSI, 14819-8, 56958-8, 3084-1, 3016-3, 3024-7, 3051-0, 2284-8, 9 #### [facility] ([id number]) [address] [facility], [address] [place], [place] [address]Ocvaclrjswp in VLDL [Mass/Vol]21 mg/dLNormal0-30Pro[facility] CenterComment on above:Performed By: #### TAY ROSSI, 41646-3, 04267-4, 3084-1, 3016-3, 3024-7, 3051-0, 2284-8, 2131-9 #### [facility] ([id number]) [address] [facility], [address] [place], [place] [address]DZFCJQHXEGW:HDL2.6Zgrmqi3.0-5.0ProMem[facility] Medical CenterComment on above:Performed By: #### CBCA, CMP, 01608-4, 37660-6, 3084-1, 3016-3, 3024- 7, 3051-0, 228-8, 2132-03 #### [facility] ([id number]) [address] [facility] [facility], [address] [place], [place] [address]Rluiwexrfxgp [Mass/Vol]104 mg/pDSguuzu66-772YrkSwvnrc [facility] HospitalComment on above:Performed By: #### CBCA, CMP, 55886-1, 93989-4, 3084-1, 3016-3, 3024-7, 3051-0, 228-8, 2132-03 #### [facility] ([id number]) [address] [facility] [facility], [address] [place], [place] [address]QTYATZHOUaa 22-68-8699Lotqwngso [Mass/Vol]1.7 mg/dLLow1.8-2.[address] [address] [facility] on above:Performed By: #### CBCA, CMP, 59516- 1, 85545-0, 3084-1, 3016-3, 3024-7, 3051-0, 2283-8, 2132-03 #### [facility] ([id number]) [address] [facility] [facility], [address] [place], [place] [address]NZG Qnon 61-63-4368HJE4.26 uIU/mLNormal0.49-4.67Pro[facility] CenterComasc[facility] on above:Performed By: #### CBCA, CMP, 92247-7, 13534-2, 3084-1, 3016-3, 3024-7, 3051-0, 228-8, 2132-03 #### [facility] ([id number]) [address] [facility], [address] [place], [place] [address]BGIW ACIDon 74-44-0468Gvmnv [Mass/Vol]5.8 mg/dLNormal2.6-7.2 [facility] HospitalComment on above:Performed By: #### CBCA, CMP, 63884- 1, 16224-1, 3084-1, 3016-3, 3024-7, 3051-0, 2284-8, 2132-03 #### [facility] ([id number]) [address] [facility], [address] [place], [place] [address]WSVTPAV B12on 17-44-1079Tyhjzholk (Vitamin B12) [Mass/Vol]pg/mL Lkpi146-472TzdTibfbg [facility] HospitalComment on above:Performed By: #### CBCA, CMP, 94530-4, 98778-1, 3084-1, 3016-3, 3024-7, 3051-0, 4-8, 2132-03 #### [facility] ([id number]) [address] [facility], [address] [place], [place] [address]LE KNEE LT 3 VWSon 75-74-4672LX KNEE LT 3 VWSXR KNEE LT 3 VWS CLINICAL INFORMATION: Chronic pain of left knee TECHNIQUE: XR KNEE LT 3 VWS 3 views left knee were obtained. Patient status post total knee arthroplasty. Hardware appears intact. Alignment is anatomic. Osseous structures appear osteopenic. IMPRESSION: Satisfactory postoperative knee. Finalized by Parag Marquis MD on 09/18/2023 12:15 PMNormalProMedica Pico Rivera Medical CenterCB AUTO DIFFon 38-62-2437GYXW #0.0 103/ulNormal0.0-0.1The [facility] HospitalComment on above:Performed By: #### URIC #### [facility] [address] [place] [address] Dr. Brandi iLmphils/100 WBC (Bld)0.5 %Normal0.2-2.0The [facility] Comment on above:Performed By: #### URIC #### [facility] [address] [address] [address] Brandi Lamas #0.2 103/ulNormal0.0-0.7The [facility] HospitalComment on above: Performed By: #### URIC #### [facility] [address] [address] [address] Brandi Grijalvaosinophils/100 WBC (Bld)3.0 %Normal0.9-7.0The [facility] Comment on above:Performed By: #### URIC #### [facility] [address] [place] [address] Dr. Brandi Grijalvarythrocyte distribution width (RBC) [Ratio]13.6 %Fjjyex67.0-15.0 [facility] HospitalComment on above:Performed By: #### URIC #### [facility] [address] [place] [address] Dr. Brandi AbarcaHematocrit (Bld) [Volume fraction]34.4 %Critically low36.0-48.0 [facility] HospitalComment on above:Performed By: #### URIC #### [facility] [address] [place] [address] Dr. Brandi AbarcaHemoglobin (Bld) [Mass/Vol]10.6 g/dLCritically low12.0-16.0The [facility] HospitalComment on above:Performed By: #### URIC #### [facility] [address] [place] [address] Dr. Brandi Long #0.02 10e3/ulNormal0.00-0.03The [facility] HospitalComment on above:Performed By: #### URIC #### [facility] [address] [place] [address] Dr. Brandi Long %0.3 %Normal0.0-0.5The [facility] HospitalComment on above: Performed By: #### URIC #### [facility] [address] [place] [address] Dr. Brandi WilsonH #1.2 103/ulNormal1.2-3.8The [facility] HospitalComment on above:Performed By: #### URIC #### [facility] [address] [place] [address] Dr. Brandi Mckinnonmphocytes/100 WBC (Bld)20.4 %Critically low20.5-60.0The [facility] HospitalComment on above:Performed By: #### URIC #### [facility] [address] [address] [address] Brandi Vences DIFF REQNONormalThe [facility] HospitalComment on above: Performed By: #### URIC #### [facility] [address] [address] [address] Brandi Meza (RBC) [Entitic mass]30.5 lvIhgpmp32.7-34.0The [facility] HospitalComment on above:Performed By: #### URIC #### [facility] [address] [address] [address] Brandi Meza (RBC) [Mass/Vol]30.8 g/wTCngshq49.9-35.2The [facility] HospitalComment on above:Performed By: #### URIC #### [facility] [address] [place] [address] Dr. Brandi Meza (RBC) [Entitic vol]99.1 fLCritically high81.0-99.0The [facility] HospitalComment on above:Performed By: #### URIC #### [facility] [address] [place] [address] Dr. Brandi Nunez #0.7 103/ulNormal0.3-0.8The [facility] Medical Centerment on above:Performed By: #### URIC #### [facility] [address] [place] [address] Dr. Brandi Reganocytes/100 WBC (Bld)12.0 %Normal1.7-12.0The [facility] Comment on above:Performed By: #### URIC #### [facility] [address] [address] [address] Brandi Perez #3.8 103/ulNormal1.4-6.5The [facility] HospitalComment on above:Performed By: #### URIC #### [facility] [address] [place] [address] Dr. Brandi Doughertyutrophils/100 WBC (Bld)63.8 %Gulhpe39.0-75.0The [facility] HospitalComment on above:Performed By: #### URIC #### [facility] [address] [address] [address] Brandi Villagranlet mean volume (Bld) [Entitic vol]11.5 fLNormal9.5-13.5The [facility] HospitalCom[facility] on above:Performed By: #### URIC #### [facility] [address] [place] [address] Dr. Brandi AbarcaPLT212 103/bqDhqrdh398-291Sml [facility] on above: Performed By: #### URIC #### [facility] [address] [place] [address] Dr. Brandi AbarcaRBC3.47 106/ulCritically low4.20-5.40The [facility] on above:Performed By: #### URIC #### [facility] [address] [place] [address] Dr. Brandi AbarcaWBC5.9 103/ulNormal4.0-11.0The [facility] on above: Performed By: #### URIC #### [facility] [address] [place] [address] Dr. Brandi AbarcaGLYCOHEMOGLOBIN A1Con 18-81-6412HHQ RECOMMENDATIONSEE BELOWNormal [facility] on above:Result Comment: ADA RECOMMENDED LIMIT 4.0 - 6.0 ADA THERAPEUTIC TARGET < 7.0 ACTION SUGGESTED > 7.0Performed By: #### A1C #### [facility] [address] [place] [address] Dr. Brandi AbarcaGlucose [Mass/Vol]114 mg/dLNormalThe [facility] HospitalCom[facility] on above:Performed By: #### A1C #### [facility] [address] [place] [address] Dr. Brandi bAarcaHbA1c (Bld) [Mass fraction]5.6 %Normal4.5-6.2The [facility] on above:Performed By: #### A1C #### [facility] [address] [place] [address] Dr. Brandi AbarcaMAGNESIUMon 26-84-5722Rbsmyofid [Mass/Vol]1.6 mg/dLCritically low 1.8-2.4The [facility] HospitalComment on above:Performed By: #### URIC #### [facility] [address] [place] [address] Dr. Brandi AbarcaPROF 14(COMP METB)on 70-55-7717Ndhcyry [Mass/Vol]2.4 g/dL Critically low3.4-5.0The [facility] HospitalComment on above:Performed By: #### URIC #### [facility] [address] [place] [address] Dr. Brandi AbarcaAlbumin/Globulin [Mass ratio]0.6 {ratio}NormalThe [facility] HospitalComment on above:Performed By: #### URIC #### [facility] [address] [place] [address] Dr. Brandi Ramos [Catalytic activity/Vol]82 U/MTtkelr49-191Zzd [facility] HospitalComment on above:Performed By: #### URIC #### [facility] [address] [place] [address] Dr. Brandi Pemberton [Catalytic activity/Vol]14 U/AQgguoa43-09Ldj [facility] HospitalComment on above:Performed By: #### URIC #### [facility] [address] [place] [address] Dr. Brandi Andrews gap [Moles/Vol]9.6 mmol/LNormalThe [facility] HospitalComment on above:Performed By: #### URIC #### [facility] [address] [place] [address] Dr. Brandi AbarcaAST [Catalytic activity/Vol]14 U/LCritically kgy60-75Vjd [facility] HospitalComment on above:Performed By: #### URIC #### [facility] [address] [place] [address] Dr. Brandi AbarcaBilirubin [Mass/Vol]0.2 mg/dLNormal0.2-1.0The [facility] Comment on above:Performed By: #### URIC #### [facility] [address] [address] [address] Brandi AbarcaCalcium [Mass/Vol]8.6 mg/dLNormal8.5-10.1The [facility] Comment on above:Performed By: #### URIC #### [facility] [address] [address] [address] Brandi AbarcaChloride [Moles/Vol]103 mmol/ZDvvwmt70-989Oob [facility] Comment on above:Performed By: #### URIC #### [facility] [address] [place] [address] Dr. Brandi AbarcaCO2 [Moles/Vol]29.6 mmol/ZVyrdqh74.0-32.0The [facility] Comment on above:Performed By: #### URIC #### [facility] [address] [place] [address] Dr. Brandi AbarcaCreatinine [Mass/Vol]0.90 mg/dLNormal0.55-1.02The [facility] HospitalComment on above:Performed By: #### URIC #### [facility] [address] [place] [address] Dr. Paz ChangEGFR-AF MONGOLIAN>60Normal>=60The [facility] HospitalComment on above:Performed By: #### URIC #### [facility] [address] [place] [address] Dr. Brandi GrijalvaGFR-NON AF TKZAJCKC31 mL/min/1.20a5Lxndrg>=60The [facility] HospitalComment on above:Performed By: #### URIC #### [facility] [address] [place] [address] Dr. Brandi AbarcaGlobulin (S) [Mass/Vol]3.9 g/dLNormalThe [facility] HospitalComment on above:Performed By: #### URIC #### [facility] [address] [place] [address] Dr. Brandi AbarcaGlucose [Mass/Vol]113 mg/dLCritically pgnq46-770Yqt [facility] HospitalComment on above:Performed By: #### URIC #### [facility] [address] [place] [address] Dr. Brandi AbarcaPotassium [Moles/Vol]4.2 mmol/LNormal3.5-5.1The [facility] Comment on above:Performed By: #### URIC #### [facility] [address] [address] [address] Brandi AbarcaProtein [Mass/Vol]6.3 g/dLCritically low6.4-8.2The [facility] HospitalComment on above:Performed By: #### URIC #### [facility] [address] [place] [address] Dr. Brandi Rodriguezdium [Moles/Vol]138 mmol/YMyjqmi665-776Qff [facility] Comment on above:Performed By: #### URIC #### [facility] [address] [place] [address] Dr. Brandi AbarcaUrea nitrogen [Mass/Vol]14.0 mg/dLNormal7.0-18.0The [facility] HospitalComment on above:Performed By: #### URIC #### [facility] [address] [place] [address] Dr. Brandi Burnett nitrogen/Creatinine [Mass ratio]15.6 mg/mgNormalThe [facility] HospitalComment on above:Performed By: #### URIC #### [facility] [address] [place] [address] Dr. Brandi Pedro AUTO DIFFon 02-31-5846XIRO #0.0 103/ulNormal0.0-0.1The [facility] HospitalComment on above:Performed By: #### A1C #### [facility] [address] [place] [address] Dr. Brandi AbarcaBasophils/100 WBC (Bld)0.3 %Normal0.2-2.0The [facility] Comment on above:Performed By: #### A1C #### [facility] [address] [place] [address] Dr. Brandi Lamas #0.0 103/ulNormal0.0-0.7The [facility] HospitalComment on above: Performed By: #### A1C #### [facility] [address] [address] [address] Brandi Grijalvaosinophils/100 WBC (Bld)0.3 %Critically low0.9-7.0The [facility] Centerment on above:Performed By: #### A1C #### [facility] [address] [place] [address] Dr. Brandi Grijalvarythrocyte distribution width (RBC) [Ratio]13.7 %Dindep24.0-15.0 The [facility] HospitalComment on above:Performed By: #### A1C #### [facility] [address] [place] [address] Dr. Brandi AbarcaHematocrit (Bld) [Volume fraction]36.3 %Eahvhw89.0-48.0The [facility] HospitalComment on above:Performed By: #### A1C #### [facility] [address] [place] [address] Dr. Brandi AbarcaHemoglobin (Bld) [Mass/Vol]11.3 g/dLCritically low12.0-16.0The [facility] HospitalComment on above:Performed By: #### A1C #### [facility] [address] [place] [address] Dr. Brandi Long #0.03 10e3/ulNormal0.00-0.03The [facility] Centerment on above:Performed By: #### A1C #### [facility] [address] [place] [address] Dr. Brandi Long %0.4 %Normal0.0-0.5The [facility] HospitalComment on above: Performed By: #### A1C #### [facility] [address] [place] [address] Dr. Brandi Gillespie #1.1 103/ulCritically low1.2-3.8The [facility] on above:Performed By: #### A1C #### [facility] [address] [place] [address] Dr. Brandi Mckinnonmphocytes/100 WBC (Bld)15.1 %Critically low20.5-60.0The [facility] HospitalComment on above:Performed By: #### A1C #### [facility] [address] [address] [address] Brandi Vences DIFF REQNONormalThe [facility] HospitalComment on above: Performed By: #### A1C #### [facility] [address] [address] [address] Brandi Meza (RBC) [Entitic mass]30.6 yaBadmou01.7-34.0The [facility] HospitalComment on above:Performed By: #### A1C #### [facility] [address] [address] [address] Brandi Meza (RBC) [Mass/Vol]31.1 g/wTXmralw06.9-35.2The [facility] HospitalComment on above:Performed By: #### A1C #### [facility] [address] [address] [address] Brandi Meza (RBC) [Entitic vol]98.4 hWEvpizh97.0-99.0Med[facility] Hospitalment on above:Performed By: #### A1C #### [facility] [address] [address] [address] Brandi Nunez #0.9 103/ulCritically high0.3-0.8ThUniversity [facility]als [facility] Comment on above:Performed By: #### A1C #### [facility] [address] [address] [address] Brandi Reganocytes/100 WBC (Bld)11.6 %Normal1.7-12.0[facility] Comment on above:Performed By: #### A1C #### [facility] [address] [address] [address] Brandi Perez #5.5 103/ulNormal1.4-6.5The [facility] HospitalComment on above:Performed By: #### A1C #### [facility] [address] [place] [address] Dr. Brandi Doughertyutrophils/100 WBC (Bld)72.3 %Nptiof97.0-75.0The [facility] HospitalComment on above:Performed By: #### A1C #### [facility] [address] [address] [address] Brandi Gutierrez mean volume (Bld) [Entitic vol]9.8 fLNormal9.5-13.5The [facility] HospitalComment on above:Performed By: #### A1C #### [facility] [address] [address] [address] Brandi AbarcaPLT211 103/abDtnpkf708-746Wgx [facility] HospitalComment on above: Performed By: #### A1C #### [facility] [address] [address] [address] Brandi AbarcaRBC3.69 106/ulCritically low4.20-5.40The [facility] HospitalComment on above:Performed By: #### A1C #### [facility] [address] [address] [address] Brandi AbarcaWBC7.5 103/ulNormal4.0-11.0The [facility] HospitalComment on above: Performed By: #### A1C #### [facility] [address] [place] [address] Dr. Brandi Dodd M/2D COMPLETEon [id number] M/2D COMPLETE Patient: CUATE GOODMAN Exam Date: 11/10/2022 : 1940 Gender:F Ordering : RIYA POSADAS . Admission #: [id number] Family : Order #: [id number] CLICK HERE TO VIEW EXAM ECHOCARDIOGRAM REPORT [...] by: Tuan Moore M.D. on 11/11/2022 at 10:13[facility] HospitalGLYCOHEMOGLOBIN A1Con [id number] RECOMMENDATIONSEE [facility] HospitalComment on above:Result Comment: ADA RECOMMENDED LIMIT 4.0 - 6.0 ADA THERAPEUTIC TARGET < 7.0 ACTION SUGGESTED > 7.0Performed By: #### URIC #### [facility] [address] [place] [address] Dr. Brandi AbarcaGlucose [Mass/Vol]120 mg/dLThe Christ HospitalComment on above:Performed By: #### URIC #### [facility] Laboratory [address] [place] [address] Dr. Brandi AbarcaHbA1c (Bld) [Mass fraction]5.8 %Normal4.5-6.2The [facility] HospitalComment on above:Performed By: #### URIC #### [facility] [address] [place] [address] Dr. Brandi AbarcaMAGNESIUMon 87-56-1929Yvnyqutob [Mass/Vol]1.6 mg/dLCritically low 1.8-2.4The [facility] HospitalComment on above:Performed By: #### A1C #### [facility] [address] [place] [address] Dr. Brandi Fields 14(COMP METB)on 35-76-2694Dkpcmew [Mass/Vol]2.6 g/dL Critically low3.4-5.0The [facility] HospitalComment on above:Performed By: #### URIC #### [facility] [address] [place] [address] Dr. Brandi AbarcaAlbumin/Globulin [Mass ratio]0.7 {ratio}NormalThe [facility] HospitalComment on above:Performed By: #### URIC #### [facility] [address] [place] [address] Dr. Brandi Ramos [Catalytic activity/Vol]84 U/XUjxldh01-248Ino [facility] HospitalComment on above:Performed By: #### URIC #### [facility] [address] [place] [address] Dr. Brandi Pemberton [Catalytic activity/Vol]16 U/XSbcjlw98-61Cpm [facility] HospitalComment on above:Performed By: #### URIC #### [facility] [address] [place] [address] Dr. Brandi Andrews gap [Moles/Vol]5.4 mmol/LNormalThe [facility] HospitalComment on above:Performed By: #### URIC #### [facility] [address] [place] [address] Dr. Brandi Sierra [Catalytic activity/Vol]15 U/TLhtxvi60-99Qbi [facility] HospitalComment on above:Performed By: #### URIC #### [facility] [address] [place] [address] Dr. Brandi Vargasirubin [Mass/Vol]0.5 mg/dLNormal0.2-1.0The [facility] Comment on above:Performed By: #### URIC #### [facility] [address] [place] [address] Dr. Brandi AbarcaCalcium [Mass/Vol]8.8 mg/dLNormal8.5-10.1The [facility] Comment on above:Performed By: #### URIC #### [facility] [address] [place] [address] Dr. Brandi AbarcaChloride [Moles/Vol]101 mmol/YMehytn50-219Niv [facility] Comment on above:Performed By: #### URIC #### [facility] [address] [address] [address] Brandi AbarcaCO2 [Moles/Vol]33.4 mmol/LCritically high21.0-32.0The [facility] HospitalComment on above:Performed By: #### URIC #### [facility] [address] [place] [address] Dr. Brandi AbarcaCreatinine [Mass/Vol]0.85 mg/dLNormal0.55-1.02The [facility] HospitalComment on above:Performed By: #### URIC #### [facility] [address] [place] [address] Dr. Brandi GrijalvaGFR-AF MONGOLIAN>60Normal>=60The [facility] HospitalComment on above:Performed By: #### URIC #### [facility] [address] [place] [address] Dr. Brandi GrijalvaGFR-NON AF MONGOLIAN>60Normal>=60The [facility] HospitalComment on above:Performed By: #### URIC #### [facility] [address] [place] [address] Dr. Brandi AbarcaGlobulin (S) [Mass/Vol]3.9 g/dLNormalThe [facility] HospitalComment on above:Performed By: #### URIC #### [facility] [address] [place] [address] Dr. Brandi AbarcaGlucose [Mass/Vol]116 mg/dLCritically kpko79-672Ppa [facility] HospitalComment on above:Performed By: #### URIC #### [facility] [address] [place] [address] Dr. Brandi AbarcaPotassium [Moles/Vol]3.8 mmol/LNormal3.5-5.1The [facility] Comment on above:Performed By: #### URIC #### [facility] [address] [place] [address] Dr. Brandi AbarcaProtein [Mass/Vol]6.5 g/dLNormal6.4-8.2The [facility] Comment on above:Performed By: #### URIC #### [facility] [address] [place] [address] Dr. Brandi AbarcaSodium [Moles/Vol]136 mmol/EOborrp757-571Tqu [facility] Comment on above:Performed By: #### URIC #### [facility] [address] [place] [address] Dr. Brandi Burnett nitrogen [Mass/Vol]12.0 mg/dLNormal7.0-18.0The [facility] HospitalComment on above:Performed By: #### URIC #### [facility] [address] [place] [address] Dr. Brandi Burnett nitrogen/Creatinine [Mass ratio]14.1 mg/mgNormalThe [facility] HospitalComment on above:Performed By: #### URIC #### [facility] [address] [place] [address] Dr. Brandi Cook HEPARIN MONITORon 07-10-3471bGDZ Coag (Bld) [Time]48.7 s Lnksnl85.5-54.2The [facility] HospitalComment on above:Performed By: #### PTTHEP #### [facility] [address] [place] [address] Dr. Brandi Harris Coag (Bld) [Time]56.6 sCritically high39.5-54.2The [facility] HospitalComment on above:Performed By: #### A1C #### [facility] [address] [place] [address] Dr. Brandi Harris Coag (Bld) [Time]51.4 qDglmrj56.5-54.2[facility] Comment on above:Performed By: #### PTTHEP #### [facility] [address] [place] [address] Dr. Brandi Vázquez 33-54-2819Sqjpqgrtxee peptide B (Bld) [Mass/Vol]1702.0 pg/mLNormal<=1,800.0The [facility] HospitalComment on above:Performed By: #### URIC #### [facility] [address] [place] [address] Dr. Brandi Burnsuretic peptide B (Bld) [Mass/Vol]1702.0 pg/mLNormal<=1,800.0 The [facility] HospitalComment on above:Performed By: #### HSTROPN, BNP, BMP #### [facility] [address] [place] [address] Dr. Brandi Pedro AUTO DIFFon 28-89-7557KVML #0.0 103/ulNormal0.0-0.1The [facility] HospitalComment on above:Performed By: #### A1C #### [facility] [address] [place] [address] Dr. Brandi Benjaminsophils/100 WBC (Bld)0.4 %Normal0.2-2.0[facility] Comment on above:Performed By: #### A1C #### [facility] [address] [place] [address] Dr. Brandi Lamas #0.2 103/ulNormal0.0-0.7The [facility] HospitalComment on above: Performed By: #### A1C #### [facility] [address] [place] [address] Dr. Brandi Grijalvaosinophils/100 WBC (Bld)1.8 %Normal0.9-7.0The [facility] Comment on above:Performed By: #### A1C #### [facility] [address] [place] [address] Dr. Brandi Grijalvarythrocyte distribution width (RBC) [Ratio]13.6 %Ymtque67.0-15.0 [facility] HospitalComment on above:Performed By: #### A1C #### [facility] [address] [place] [address] Dr. Brandi AbarcaHematocrit (Bld) [Volume fraction]38.2 %Fvcbmd31.0-48.0The [facility] HospitalComment on above:Performed By: #### A1C #### [facility] [address] [place] [address] Dr. Brandi AbarcaHemoglobin (Bld) [Mass/Vol]12.2 g/gWCbogna80.0-16.0The [facility] HospitalComment on above:Performed By: #### A1C #### [facility] [address] [place] [address] Dr. Brandi AbarcaIG #0.02 10e3/ulNormal0.00-0.03The [facility] HospitalComment on above:Performed By: #### A1C #### [facility] [address] [place] [address] Dr. Brandi AbarcaIG %0.2 %Normal0.0-0.5The [facility] HospitalComment on above: Performed By: #### A1C #### [facility] [address] [place] [address] Dr. Brandi Gillespie #1.3 103/ulNormal1.2-3.8The [facility] HospitalComment on above:Performed By: #### A1C #### [facility] [address] [place] [address] Dr. Brandi Mckinnonmphocytes/100 WBC (Bld)15.4 %Critically low20.5-60.0The [facility] HospitalComment on above:Performed By: #### A1C #### [facility] [address] [place] [address] Dr. Brandi AbarcaMANUAL DIFF REQNONormalThe [facility] HospitalComment on above: Performed By: #### A1C #### [facility] [address] [place] [address] Dr. Brandi Burgess (RBC) [Entitic mass]30.7 ujVvygnk61.7-34.0The [facility] HospitalComment on above:Performed By: #### A1C #### [facility] [address] [place], [place] [address] Dr. Brandi MezaHC (RBC) [Mass/Vol]31.9 g/pQNpluek55.9-35.2The [facility] HospitalComment on above:Performed By: #### A1C #### [facility] [address] [place] [address] Dr. Brandi MezaV (RBC) [Entitic vol]96.0 nOFgkbbk06.0-99.0The [facility] HospitalComment on above:Performed By: #### A1C #### [facility] [address] [place] [address] Dr. Brandi Nunez #0.7 103/ulNormal0.3-0.8The [facility] HospitalComment on above:Performed By: #### A1C #### [facility] [address] [place] [address] Dr. Brandi Reganocytes/100 WBC (Bld)8.6 %Normal1.7-12.0The [facility] Comment on above:Performed By: #### A1C #### [facility] [address] [place] [address] Dr. Brandi DoughertyUT #6.0 103/ulNormal1.4-6.5The [facility] HospitalComment on above:Performed By: #### A1C #### [facility] [address] [place] [address] Dr. Brandi Doughertyutrophils/100 WBC (Bld)73.6 %Hmfoso53.0-75.0The [facility] HospitalComment on above:Performed By: #### A1C #### [facility] [address] [place] [address] Dr. Brandi Villagranlet mean volume (Bld) [Entitic vol]9.8 fLNormal9.5-13.5The [facility] HospitalComment on above:Performed By: #### A1C #### [facility] [address] [place] [address] Dr. Brandi AbarcaPLT234 103/kkEjkkoj030-501Gku [facility] HospitalComment on above: Performed By: #### A1C #### [facility] [address] [address] [address] Brandi AbarcaRBC3.98 106/ulCritically low4.20-5.40The [facility] HospitalComment on above:Performed By: #### A1C #### [facility] [address] [address] [address] Brandi AbarcaWBC8.1 103/ulNormal4.0-11.0The [facility] HospitalComment on above: Performed By: #### A1C #### [facility] [id number] Brandi Valladares CHEST WO W CONon 35-20-5236ZOQ CHEST WO W CONEXAMINATION: CTA CHEST WO W CON HISTORY: SHORTNESS OF BREATH [...] Electronically authenticated by: EYAD FREITAS Date: 2022-11-09 08:23[facility] HospitalCovid-19 PCR (CVDTBH)on 64-17-8050VXVT-CoV-2 (COVID-19) RNA SMILEY+probe Ql (Unsp spec)Not detectedNormalNOT DETECTEDThe [facility] Comment on above:Result Comment: This test is not yet approved or cleared by the [place] FDA. When there are no FDA-approved or cleared tests available, and other criteria are met, FDA can make tests available under an emergency access mechanism called an Emergency Use Authorization (EUA). The EUA for this test is supported by the Vacuum Caster of Health and Human Service's (HHS's) declaration that circumstances exist to justify the emergency use of in vitro diagnostics for the detection and/or diagnosis of the virus that causes COVID- 19. This EUA will remain in effect (meaning [...] of clinical signs and symptoms consistent with SARS-CoV-2.Performed By: #### CVDTBH #### [facility] [address] [place] [address] Dr. Brandi AbarcaPROF CHEM 8 (BAS METB)on 32-81-0194Otpwq gap [Moles/Vol]12.2 mmol/LNormalCleveland Clinic Medina HospitalComment on above:Performed By: #### HSTROPN, BNP, BMP #### [facility] [address] [place] [address] Dr. Brandi AbarcaCalcium [Mass/Vol]9.0 mg/dLNormal8.5-10.1[facility] Comment on above:Performed By: #### HSTROPN, BNP, BMP #### [facility] [address] [place] [address] Dr. Brandi AbarcaChloride [Moles/Vol]103 mmol/OLokbct37-778WyvCleveland Clinic Medina Hospital Comment on above:Performed By: #### HSTROPChaitanya, BNP, BMP #### [facility] [address] [place] [address] Dr. Brandi AbarcaCO2 [Moles/Vol]30.6 mmol/ETedlhn37.0-32.0[facility] Comment on above:Performed By: #### HSTROPN, BNP, BMP #### [facility] [address] [place] [address] Dr. Brandi AbarcaCreatinine [Mass/Vol]0.89 mg/dLNormal0.55-1.02The [facility] HospitalComment on above:Performed By: #### HSTROPN, BNP, BMP #### [facility] [address] [place] [address] Dr. Brandi GrijalvaGFR-AF MONGOLIAN>60Normal>=60The [facility] HospitalComment on above:Performed By: #### HSTROPN, BNP, BMP #### [facility] [address] [place] [address] Dr. Brandi Burch-NON AF MONGOLIAN>60Normal>=60The [facility] HospitalComment on above:Performed By: #### HSTROPN, BNP, BMP #### [facility] [address] [place] [address] Dr. Brandi AbarcaGlucose [Mass/Vol]102 mg/nRDfcogs93-707Exi [facility] Comment on above:Performed By: #### HSTROPN, BNP, BMP #### [facility] [address] [place] [address] Dr. Brandi AbarcaPotassium [Moles/Vol]3.8 mmol/LNormal3.5-5.1[facility] Comment on above:Performed By: #### HSTROPN, BNP, BMP #### [facility] [address] [place] [address] Dr. Brandi Rodriguezdium [Moles/Vol]142 mmol/JOjkyvd954-572BptCleveland Clinic Medina Hospital Comment on above:Performed By: #### HSTROPN, BNP, BMP #### [facility] [address] [place] [address] Dr. Brandi AbarcaUrea nitrogen [Mass/Vol]16.0 mg/dLNormal7.0-18.0The [facility] HospitalComment on above:Performed By: #### HSTROPN, BNP, BMP #### [facility] [address] [place] [address] Dr. Brandi Burnett nitrogen/Creatinine [Mass ratio]18.0 mg/mgNoCleveland Clinic Fairview HospitalComment on above:Performed By: #### HSTROPN, BNP, BMP #### [facility] [address] [place] [address] Dr. Brandi AbarcaPROTIMEon 64-37-2020MIQ Coag (PPP) [Relative time]1.00 {INR} NormalThe [facility] on above:Performed By: #### A1C #### [facility] [address] [place] [address] Dr. Brandi Delaney GUIDELINESSEE BELOWThe Christ HospitalComment on above:Result Comment: DESIRED INR: 2.0 - 3.0 CONDITIONS NOT LISTED BELOW 2.5 - 3.5 FOR PROSTHETIC HEART VALVE REPLACEMENT 2.5 - 3.5 RECURRENT THROMBOSIS Performed By: #### A1C #### [facility] [address] [place] [address] Dr. Brandi Short Coag (PPP) [Time]10.6 sNormal9.0-11.6The [facility] Comment on above:Performed By: #### A1C #### [facility] [address] [place] [address] Dr. Brandi Sharma 27-86-5475dQYC Coag (Bld) [Time]24.3 sWkizei39.3-36.2[facility] on above:Performed By: #### A1C #### [facility] [address] [place] [address] Dr. Brandi Cook HEPARIN MONITORon 09-23-3424hEJZ Coag (Bld) [Time]47.3 s Nbuprf00.5-54.2The [facility] on above:Performed By: #### URIC #### [facility] [address] [place] [address] Dr. Brandi LeijaMPTOMATIC COVID-19 ANTIGENon 14-55-7042APE StatementSEE BELOW NormalFulton County Health Center on above:Result Comment: This test has not been FDA [...] declaration is terminated or authorization is revoked sooner.Performed By: #### CVDAGS #### [facility] [address] [place] [address] Dr. Brandi Leahy-CoV-2 (COVID-19) RNA SMILEY+probe Ql (Unsp spec)NegativeNormal NEGATIVEThe [facility] Centerment on above:Performed By: #### CVDAGS #### [facility] [address] [place] [address] Dr. Brandi Hughes, HIGH SENSITIVITYon 34-65-2470HUIWNB72.6 pg/mLNormal 4.0-51.3TMercy Health Tiffin Hospital on above:Result Comment: CUT-OFF POINTS HAVE BEEN ESTABLISHED BASED ON THE FOURTH UNIVERSAL DEFINITIONS OF MYOCARDIAL INFARCTION. THE UPPER REFERENCE LIMIT (URL) OF TROPONIN, DEFINED THE 99TH PERCENTILE OF cTnI DISTRIBUTION IN A REFERENCE POPULATION, HAS BEEN CONFIRMED THE DECISION THRESHOLD FOR [place] DIAGNOSIS.Performed By: #### HSTROPN #### [facility] [address] [place] [address] Dr. Brandi AbarcaHSTROP16.4 pg/mLNormal4.0-51.3TMercy Health Tiffin Hospital on above:Result Comment: CUT-OFF POINTS HAVE BEEN ESTABLISHED BASED ON THE FOURTH UNIVERSAL DEFINITIONS OF MYOCARDIAL INFARCTION. THE UPPER REFERENCE LIMIT (URL) OF TROPONIN, DEFINED THE 99TH PERCENTILE OF cTnI DISTRIBUTION IN A REFERENCE POPULATION, HAS BEEN CONFIRMED THE DECISION THRESHOLD FOR [place] DIAGNOSIS.Performed By: #### HSTROPN, BNP, BMP #### [facility] [address] [address] [address] Brandi AbarcaURIC ACID SERUMon 51-14-7591Czwum [Mass/Vol]4.4 mg/dLNormal 2.6-6.0The [facility] HospitalComment on above:Performed By: #### URIC #### [facility] [address] [place] [address] Dr. Brandi AbarcaXR CHEST 1 Von 56-57-3504HJ CHEST 1 VEXAMINATION: XR CHEST 1 V HISTORY: SHORTNESS OF BREATH COMPARISON: 01/18/2016 TECHNIQUE: AP portable FINDINGS: LUNGS: No significant pulmonary parenchymal abnormalities. VASCULATURE: No increased pulmonary vasculature. PLEURA: No pneumothorax, effusion, or pleural thickening. CARDIAC: Moderate stable cardiomegaly MEDIASTINUM: No visible mass or adenopathy. BONES: No fracture or visible bone lesion. OTHER: Negative. IMPRESSION: No acute cardiopulmonary disease Electronically authenticated by: KIMBER MALLOY Date: 2022-11-09 07:22[facility] Vital Signs Date TimeVital SignValuePerforming FfotxujybWzgwjtuo58-05-1655 09:56-0500Blood Pressure LocationKathy Lue [facility]01-10-2025 09:56-0500Diastolic blood oksrvaql49 mm[Hg]Cyn Lue [facility]01-10-2025 09:56-0500Heart rate84 /minKathy Lue [facility]01-10-2025 09:56-0500Systolic blood vrxsibbd605 mm[Hg]Cyn Lue [facility]08-29-2024 15:27-0400Body .6 [facility] Centerj[facility] FACILITIES OFFICER-RESEARCH FELLOW Work Phone: [facility]08-29-2024 15:27-0400Body mass index (BMI) [Ratio]39.82 kg/m2Ave Mackey APRN-MARGARITA Work Phone: [address] [place], [place] 4311608-29-2024 15:27-0400Body jpzkdkmoogt21.29 [degF]Ave Mackey APRN-MARGARITA Work Phone: [address] [place], [place] 4311608-29-2024 15:27-0400Body weight 105.23 kgAve Mackey APRN-MARGARITA Work Phone: [phone] [place], [place] 3919308-07-2024 15:12-0400Body height 162.6 Bhavana Damon Work Phone: [phone] [place], [place] 3919308-07-2024 15:12-0400Body mass index (BMI) [Ratio]39.82 kg/g0UrocnldtPaige Damon Work Phone: [phone] [place], [place] 3919308-07-2024 15:12-0400Body swzqytjdkpm96.2 [degF]Paige Damon Work Phone: [phone])198-[address] [place], [place] [id number] 15:12-0400Body weight 105.23 kgSanati Damon Work Phone: [address] [place], [place] 4311607-26-2024 07:32-0400Body vsxzjwsyegr29.9 [degF]Mohan Gomez MD Work Phone: [facility]07-26-2024 07:32-0400Diastolic blood qrvkuhbc47 mm[Hg]Mohan Gomez MD Work Phone: [facility]07-26-2024 07:32-0400Heart rate85 /Neri Gomez MD Work Phone: [facility]07-26-2024 07:32-0400Respiratory rate18 /Neri Gomez MD Work Phone: [facility]07-26-2024 07:32-9955ZkM4% (BldA) [Mass fraction]94 %Mohan Gomez MD Work Phone: [phone] [place], [place] 3661707-26-2024 07:32-0400Systolic blood lgfcyoaj244 mm[Hg]Mohan Gomez MD Work Phone: [facility]07-26-2024 04:32-0400Body mass index (BMI) [Ratio]39.93 kg/m2Mohan Gomez MD Work Phone: [facility]07-26-2024 04:32-0400Body weight 105.51 kgMohan Gomez MD Work Phone: 1([phone] [place], [place] 3661707-17-2024 11:44-0400Body height 162.6 cmScristobal PappasVook Work Phone: [address] [place], [place] 4311607-17-2024 11:44-0400Body mass index (BMI) [Ratio]41.37 kg/w2Txaugmzynati Damon Work Phone: [phone])915-[address] [place], [place] 3919307-17-2024 11:44-0400Body pruybbolbkl44.8 [degF]Paige Damon Work Phone: [phone] [place], [place] 3919307-17-2024 11:44-0400Body weight 109.32 kgSanati Damon Work Phone: [phone] [place], [place] [id number] 14:50-0400Body height 162.6 cmMohan Gomez MD Work Phone: [facility]07-03-2024 12:50-0400Body vujfspomhlx68.2 [degF]Erik Heredia MD Work Phone: [address] [place], [place] [id number] 12:50-0400Diastolic blood lureptvr41 mm[Hg]Erik Heredia MD Work Phone: [address] [place], [place] [id number] 12:50-0400Heart rate89 /Naomi Heredia MD Work Phone: [address] [place], [place] 4311607-03-2024 12:50-0400Respiratory rate16 /Naomi Heredia MD Work Phone: [phone] [place], [place] [id number] 12:50-9912GxX3% (BldA) [Mass fraction]97 %Erik Heredia MD Work Phone: 1([phone])980-[address] [place], [place] [id number] 12:50-0400Systolic blood rodixhbt354 mm[Hg]Erik Heredia MD Work Phone: [phone]06-27-2024 10:00-0400Body mass index (BMI) [Ratio]37.24 kg/m1GtllbErik Heredia MD Work Phone: [phone]06-27-2024 10:00-0400Body weight 98.4 kgErik Heredia MD Work Phone: [phone] [address]06-25-2024 11:55-0400Body height 162.6 cmSclaude Heredia MD Work Phone: [phone]05-15-2024 14:19-0400Body height 162.6 Fang Heredia MD Work Phone: [phone])[address]05-15-2024 14:19-0400Body mass index (BMI) [Ratio]38.96 kg/f5MgtxmErik Heredia MD Work Phone: [phone]05-15-2024 14:19-0400Body weight 102.97 kgErik Heredia MD Work Phone: [phone] [place] [address] Encounters Encounter DateEncounter TypeCare ProviderFacilityStart: 05-04-2025 End: 05-04-1972eovpakkxtiLFQVACommunity Memorial Hospitaltart: 04-20-2025 End: 50-75-7449nptiwroecvORSJGCommunity Memorial Hospitaltart: 32-15-4052ldhlruadmbCbyrj M. LueFacility:OLIVIER BellevueStart: 08-23-2024 End: 81-22-5075pfrixqoovcIuqed M. LueFacility:CD:[id number]: 08-09-2024 End: 76-10-1158Spafsjedq Result Joseph Yee MD Work Phone: NOGU External Department UnsolicitedStart: 08-09-2024 End: 53-56-5570Mmaznmlkn Result EncounterSliliane Yee MD Work Phone: noms External Department UnsolicitedStart: 08-09-2024 End: 69-59-3973xrwfazqoaiQfknc MKaden LueFacility:CD:[id number]: 07-28-2024 End: 07-03-4729ooyjqcqeayIspxi MKaden LueFacility:EU [place]Start: 07-28-2024 End: 81-80-0020Rnaokpt encounter procedureFabiolakerry Chin Greg [facility] Start: 80-11-1138ytalribcupZkhnc MKaden LueFacility:EU [place]Start: 07-18-2024 End: 46-39-2642cxyphtijhhCqjaopw Jazmine [facility] Work Phone: Start: 07-18-2024 End: 61-59-5863Aggpvnpc ReferredC[facility] Clinic [facility]- LAB Path Spec Switchback HospStart: 07-18-2024 End: 58-42-0995mzgvxuxdjqUkxsk MKdaen LueFacility:CD:[id number]: 05-01-2024 End: 79-54-4825Loz-patient / Non-[facility] Work Phone: Start: 03-16-2024 End: 00-56-3741Smhemy follow up visit related to original Prerna Damon Work Phone: [facility] Hospitalho Dilliner OrthopedicsComment on above:Primary osteoarthritis of left hip (Primary Dx)Start: 03-16-2024 End: 41-16-0216Lzsaujtcdn hospital visit by Elsi Damon Work Phone: [facility]iologyStart: 64-62-0671hrbwhucpemakshat DAMONAvita Dilliner HospitalStart: 02-23-2024 End: 31-31-5317Tswdgu follow up visit related to original Magaliangelique Damon Work Phone: [facility] OrthopedicsComment on above:S/P total left hip arthroplasty (Primary Dx)Start: 86-38-3446iibgasyjlqJJBLMYET M MATEOMOI [facility] HospitalStart: 02-23-2024 End: 93-24-7233Okddqmmkqa hospital visit by Elsi Damon Work Phone: [facility] RadiologyStart: 02-02-2024 End: 65-81-8204Mdkhgr follow up visit related to original palmaPaige James Damon Work Phone: [facility] OrthopedicsComment on above:S/P total left hip arthroplasty (Primary Dx)Start: 02-02-2024 End: 95-99-0698Axlrhitmdr hospital visit by Elsi Damon Work Phone: [facility] RadiologyStart: 48-82-9315xobmjjdkto SAMANTHA M [facility]DESChrist [facility] HospitalStart: 01-19-2024 End: 35-60-6917Ofqfrlnqxh and management of inpatientMohan Gomez MD Work Phone: [facility] BedStart: 01-11-2024 End: 74-41-5546nandbxflpfXMUFMK [facility] HospitalStart: 01-11-2024 End: 04-62-7294Vhtircgss for other preprocedural examinationSCLAUDE HEREDIAChrist Hospital HospitalStart: 01-11-2024 End: 30-02-7420Nxfkouq encounter statusErik Heredia MD Work Phone: [facility] SystemStart: 01-11-2024 End: 10-67-3016Fbtlwnsrdi hospital visit by Marj Heredia MD Work Phone: [facility] Med SurgComment on above:S/P total hip arthroplastyStart: 36-58-6321pwmaxnvduqMADZNC M [facility] Start: 12-01-2023 End: 00-45-2758Dnzaha outpatient new 60 minutesErik Heredia MD Work Phone: [facility] OrthopedicsComment on above:Pain of left hip (Primary Dx)Start: 12-01-2023 End: 02-40-8423Nopghkhfyj hospital visit by Marj Heredia MD Work Phone: [facility] RadiologyStart: 42-39-4508zlohfxxspl TRUMAN BOO JR.[facility] HospitalStart: 11-03-2023 End: 30-53-2423szkohraljhPN., TRUMAN BOONot AvailableStart: 09-18-2023 End: 74-62-4788jcnsdwxodpOSLWBO A HERRINGProMedica Cummings HospitalStart: 31-44-0215vmrxfrtailKE TIAN Krause HERRINGFacility:Z3Todfw: 11-09-2022 End: 03-35-2643Wrcdebuaeq and management of inpatientDR TIAN Krause UKHN Facility:H1 Procedures DateProcedureProcedure DetailPerforming ClinicianStart: 86-79-5037RQK CBC WITH AUTO DIFFShaityson Yee MD Work Phone: Start: 32-87-1053Tamyb metabolic panel calcium total Mohan Gomez MD Work Phone: Start: 63-88-2786S-reactive proteinJanet Moreno MD Work Phone: Start: 47-08-1828Mcprsltn blood count with white cell differential, automatedMohan Gomez MD Work Phone: Start: 09-76-1330Bkpbi metabolic panel calcium total Mohan Gomez MD Work Phone: Start: 26-55-5877J-reactive proteinNanmaurice Moreno MD Work Phone: Start: 29-08-3642Tynop metabolic panel calcium total Mohan Gomez MD Work Phone: Start: 36-74-6235S-reactive proteinJanet Moreno MD Work Phone: Start: 42-12-2244Baeim metabolic panel calcium total Mohan Gomez MD Work Phone: Start: 64-72-6263G-reactive proteinNancy F Josh AL Work Phone: Start: 83-00-1545Rmhpv metabolic panel calcium total Mohan Gomez MD Work Phone: Start: 38-15-7035L-reactive proteinNancy F Josh AL Work Phone: Start: 92-14-2362Formc metabolic panel calcium total Mohan Gomez MD Work Phone: Start: 81-65-0788D-reactive proteinNancy F Josh AL Work Phone: Start: 83-32-8724Toyki metabolic panel calcium total Mohan Gomez MD Work Phone: Start: 10-72-5336R-reactive proteinNancy F Josh AL Work Phone: Start: 27-69-3535Pcvra metabolic panel calcium total Mohan Gomez MD Work Phone: Start: 76-87-1185U-reactive proteinNancy F Josh AL Work Phone: Start: 36-59-3237Ombcp dip stick/tablet rgnt auto w/o microscopyMohan Gomez MD Work Phone: Start: 07-80-3316Liury metabolic panel calcium total Mohan Gomez MD Work Phone: Start: 24-19-4986L-reactive proteinNancy F Josh AL Work Phone: Start: 66-63-2543Ymrxs metabolic panel calcium total Mohan Gomez MD Work Phone: Start: 86-35-5371A-reactive proteinNancy F Josh AL Work Phone: Start: 76-67-9744Tlila metabolic panel calcium total Mohan Gomez MD Work Phone: Start: 67-92-0135L-reactive proteinNancy F Josh AL Work Phone: Start: 80-99-1515Ovhgc metabolic panel calcium total Mohan Gomez MD Work Phone: Start: 20-29-7088Jhhwdab function panelNanmaurice Martin Josh AL Work Phone: Start: 97-66-5652Flwea metabolic panel calcium total Mohan Gomez MD Work Phone: Start: 16-66-7608G-reactive proteinNancy F Josh AL Work Phone: Start: 63-14-3431Obrmn metabolic panel calcium total Mohan Gomez MD Work Phone: Start: 65-55-1350C-reactive proteinNancy F Josh AL Work Phone: Start: 60-46-8693Taxyn metabolic panel calcium total Mohan Gomez MD Work Phone: Start: 67-94-9022Z-reactive proteinJanet Salazar Josh AL Work Phone: Start: 91-98-5400Ehmjf metabolic panel calcium total Mohan Gomez MD Work Phone: Start: 01-45-8766O-reactive proteinNancy Martin Josh AL Work Phone: Start: 37-81-7788Mjvvk metabolic panel calcium total Mohan Gomez MD Work Phone: Start: 06-22-6691T-reactive proteinJanet Salazar Josh AL Work Phone: Start: 49-55-9700Uxuzi metabolic panel calcium total Mohan Gomez MD Work Phone: Start: 95-82-9589G-reactive proteinNancy F Josh AL Work Phone: Start: 88-48-1256Qnjvo-dna/rna gi pthgn multiplex probe tq 12-25Nancy F Josh AL Work Phone: Start: 71-12-4824Zfa agent det nucleic acid clostridium amp probeNancy F Josh AL Work Phone: Start: 75-06-4565Gqxlq metabolic panel calcium total Mohan Gomez MD Work Phone: Start: 39-82-0231L-reactive proteinJanet Martin Josh AL Work Phone: Start: 78-18-6982Lceyv metabolic panel calcium total Mohan Gomez MD Work Phone: Start: 30-31-7359Zcueefx function panelJanet Martin Josh AL Work Phone: Start: 49-67-4693Dyvml metabolic panel calcium total Mohan Gomez MD Work Phone: Start: 86-00-7094H-reactive proteinJanet Martin Josh AL Work Phone: Start: 19-90-3677Googoeu bacterial quanttative colony count urineJanet Martin Josh AL Work Phone: Start: 01-45-9303Jkpcnj nuc acid amp prb cult/isolate ea orgnismNancy Martin Josh AL Work Phone: Start: 73-47-8980Qenpg metabolic panel calcium total Mohan Gomez MD Work Phone: Start: 22-35-4416Bbuzstdgre exam chest single viewMohan Gomez MD Work Phone: Start: 14-21-6535Jqiuj metabolic panel calcium total Mohan Gomez MD Work Phone: Start: 73-86-3150Swoyj metabolic panel calcium total Luis Monte MD Work Phone: Start: 81-94-5534Hgordlpuom examination foot 2 views Paige Damon Work Phone: Start: 39-09-3245Uxmer function panelScristobal Damon Work Phone: Start: 18-91-1675Rzomv count complete auto&auto difrntl wbcChad Yesica FACILITIES OFFICER-RESEARCH FELLOW Work Phone: Start: 30-55-6165Kzznw of troponin quantitativeLuis Monte MD Work Phone: Start: 21-97-3767Agc routine ecg w/least 12 lds trcg only w/o i&rAdam Mandeep Monte MD Work Phone: Start: 01-13-2024 End: 38-73-9204Fhmwe metabolic panel calcium totalAdam Mandeep Monte MD Work Phone: Start: 95-87-7931Pplup metabolic panel calcium total Luis J Mell AL Work Phone: Start: 42-77-0762Utoksaxlvt examination pelvis 1/2 viewsChad Yesica FACILITIES OFFICER-RESEARCH FELLOW Work Phone: Start: 09-94-8397TXXTXVXN PATHOLOGY Yael Heredia MD Work Phone: Start: 01-11-2024 End: 40-69-0691Sfprgx acetblr/prox fem prostc agrft/algrfMart Heredia MD Work Phone: Start: 25-90-1849Rkbvj group typing, RH phenotyping Susan Chadwick PA-C Work Phone: Start: 62-94-1785Pwjiwfdfaat Tushar Chadwick PA-C Work Phone: Start: 87-85-4638IJAEGCO PROCEDUREShantell Dasilva RN Arthroplasty of kneeKathy Lue CholecystectomyKathy Lue H/O: hysterectomyH/O: hysterectomyKathy Lue HysterectomyKathy Lue Insertion of hip prosthesisKathy Lue Total nephrectomyKathy Lue Plan of Treatment DateCare ActivityDetailAuthorStart: 56-98-1012YoljqckMcCullough-Hyde Memorial Hospitaltart: 36-03-6260Iwrmyltq identified in Urine by CultureUrine Culture [facility] Centertart: 49-46-7318Kgdhz cultureTrinity Health System Twin City Medical Centertart: 62-58-4475Rjuycllyx [facility] Start: 03-17-2024 End: 81-08-8394Xqmqjlh encounter lqmpylidh74/30/2024 10:45 AM EDT Office Visit [facility]ph[facility] [address] , [place] [phone] Mohan Gomez MD [address] [place] [address] [facility] NephrologyStart: 03-09-2024 End: 42-14-2028Jizrcgo encounter rxmkwehqk36/22/2024 4:00 PM EDT Office Visit [facility] [address] [place] [address] [address] Mackey APRN-CNP [address] [place] [address] [facility]opedicsStart: 02-23-2024 End: 61-05-2904tqszstioakAbfyl [place] [facility]opedicsStart: 02-23-2024 End: 11-99-4283Xagsgui encounter /07/2024 3:00 PM EDT Office Visit [facility] [address] [place] [address] Paige Damon [address] [place] [address] [facility]opedicsStart: 02-21-2024 End: 15-48-4850zkqqetolydVrfzpUniversity of [facility] Infectious DiseaseStart: 02-02-2024 End: 49-65-9652Azwuzyi encounter rarizzfhr74/17/2024 11:30 AM EDT Office Visit [facility] [address] [place] [address] Paige Damon [address] [place] [address] [facility]icsStart: 01-10-2024 End: 59-66-4278Fobfchafn to same day surgery znzofi1001/10/2024 6:45 AM EDT - 01/10/2024 8:00 AM EDT [facility] [address] [place] [address] Erik Heredia MD [address] [place] [address] ARTHROPLASTY HIP TOTAL [facility] PeriopComment on above:ARTHROPLASTY HIP TOTAL ALStart: 01-10-2024 End: 93-06-0001Trjbyk acetblr/prox fem prostc agrft/algrftARTHROPLASTY HIP TOTAL LATERAL APPROACH Osteoarthritis of left hip, unspecified osteoarthritis type 01/10/2024 6:45 AM [facility] ORStart: 29-01-6087Abqwsljmns hospital visit by iqdjnavrp75/24/2024 6:45 AM EDT Hospital En[facility] [address] [place] [address] Erik Heredia MD [address] [place] [address] Osteoarthritis of left hip, unspecified osteoarthritis typeChrist Hospital PeriopComment on above: Osteoarthritis of left hip, unspecified osteoarthritis typeStart: 12-16-2023 End: 58-57-8717Zjacgorjg to oxfaimvhnvsqz51/30/2024 10:00 AM EDT Pre-Operative Nurse [facility] [address] [place] [address] Yqyqg [place] Pre AdmissionStart: 06-64-5336NELGE-19 VACCINE ( season)COVID-19 VACCINE ( season)[facility] SystemStart: 84-32-3560Bmijy Health SystemStart: 90-77-8736Dwtvvnavnazj vaccinationMemorial Hospital SystemStart: 65-79-2681Xnjakm vaccine hzv live for subcutaneous useZOSTER (SHINGLES) VACCINE (2 of 3)[facility] Hospitaltart: 54-89-0374ThwewUniversity Hospitals TriPoint Medical Centertart: 24-53-4627TFP VACCINE (1 - 1-dose 60+ series)RSV VACCINE (1 - 1-dose 60+ series)[facility] Hospitaltart: 10-11-1987 Screening for malignant neoplasm of colonGreene Memorial Hospitaltart: 08-23-1985 Hepatitis B vaccinationGreene Memorial Hospitaltart: 99-42-8510Daitehyzl for malignant neoplasm of breastGreene Memorial Hospitaltart: 49-12-3288Aitvldxch for malignant neoplasm of cervixGreene Memorial Hospitaltart: 29-43-1830Zoxdhuycs for osteoporosisRegency Hospital Cleveland West End: 06-87-1052MR Hip - left Single viewRegency Hospital Cleveland WestComment on above:One Time for 1 Occurrences starting 01/11/2024 until 01/11/2024XR Pelvis and Hip - left ViewsXR HIP WITH PELVIS LEFT Imaging Routine Pain of left hip 12/01/2023 2:03 PM [facility] Work Phone: XR Pelvis and Hip - left ViewsXR HIP WITH PELVIS LEFT Imaging Routine S/P total left hip arthroplasty 02/02/2024 11:31 [facility] - left ViewsXR HIP WITH PELVIS LEFT Imaging Routine S/P total left hip arthroplasty 02/23/2024 2:59 PM [facility] - left ViewsXR HIP WITH PELVIS LEFT Imaging Routine Hx of total hip arthroplasty, left 03/16/2024 2:21 PM [facility] Immunizations Immunization DateImmunizationNotesCare YxiukqayLphmmmli53-21-6620cacmbdudb virus vaccine, unspecified formulationSclaude Heredai MD Work Phone: [facility]01-08-2021SARS-CoV-2 (COVID-19) mRNA-1273 vaccineKat Lue [facility]10-07-2020influenza virus vaccine, unspecified formulationKathy Lue [facility]07-30-2016tetanus toxoid, reduced diphtheria toxoid, and acellular pertussis vaccine, adsorbedKathy Lue [facility]07-02-2016tetanus toxoid, reduced diphtheria toxoid, and acellular pertussis vaccine, adsorbedKathy Lue [facility]10-06-2014influenza virus vaccine, unspecified formulationKathy Lue [facility]04-01-2008pneumococcal conjugate vaccine, 13 valentKathy Lue [facility]01-28-2006zoster vaccine, liveKathy Lue [facility]01-28-2006zoster vaccine, unspecified formulationSclaude Heredia MD Work Phone: [facility] WestGssico29-16-2129egymwfmzd A vaccine, adult dosageKathy Lue [facility]01-08-1986hepatitis B vaccine, adult dosageKathy Lue [facility] Payers DatePayer CategoryPayerPolicy [id number]-pay2024MedicaidAETNA MEDICARE ADVANTAGE [id number] 2024Medicare [id number] [id number] 1943 [id number] 2.16.840.1.698665.3.57[id number] 2.16.840.1.465022.3.57[id number] 2.16.840.1.038993.3.57[id number] 2.16840.1.187307.3.57[id number] 2.16.840.1.644998.3.57[id number] 2.16.840.1.122606.3.57[id number] 2.16840.1.590783.3.57[id number] 2.16840.1.085662.3.57[id number] 2.16.840.1.920748.3.57[id number] 2.16.840.1.599928.3.57[id number] 2.16.840.1.578629.3.57[id number] 2.16.840.1.050713.3.57[id number] 2.16.840.1.898510.3.57[id number] 2.16.840.1.761667.3.57[id number] 2.16.840.1.461153.3.57[id number] 2.16.840.1.255715.3.57[id number] 2.16.840.1.203333.3.57[id number] 2.16.840.1.339262.3.57[id number] 2.16.840.1.611310.3.57[id number] 2.16.840.1.847872.3.57[id number] 2.16.840.1.431851.3.57[id number] 2.16.840.1.9[id number] 2.840.1.112631.3.579.2.531 Social History DateTypeDetailFacilityStart: 11-03-2023 End: 18-00-7967Yvwihbg smoking status NHISNever smoked tobaccoGreene Memorial Hospitaltart: 11-03-2023 End: 23-71-5001Pgplhma use and exposureSmokeless tobacco non-userGreene Memorial Hospitaltart: 12-01-2023 End: 58-00-5510Himzankfp beverage intakeLifetime non-drinker (finding)[facility] Hospitaltart: 11-03-2023 End: 57-84-5409Dunoetd of Social functionGreene Memorial Hospitaltart: 11-03-2023 End: 76-08-1299Tbupnaj use panelGreene Memorial Hospitaltart: 06-38-0738Ogk assigned at birthNot on fileRegency Hospital Cleveland WestHas the electric, gas, oil, or water company threatened to shut off services in your home in past 12MoNoAEast [facility](I/We) worried whether (my/our) food would run out before (I/we) got money to buy more.Never [facility] [employer] SystemIn the past 12 months, has lack of transportation kept you from medical appointments or from getting medications?No [facility] [employer] SystemHow hard is it for you to pay for the very basics like food, housing, medical care, and heatingNot very hardRegency Hospital Cleveland WestTobacco smoking status NHISUnknown if ever smokedMckitrick Hospital Work Phone: Start: 62-11-7951YmzPhpnho (finding)[facility] Medical Centertart: 43-52-8556Qyl Assigned At BirthFeMercy Hospital Medical Equipment Procedure CodeEquipment CodeEquipment Original TextEquipment IdentifierDates [id number]: [id number]_gxdZodei: [id number]_lmqUbpks: [id number]_bbqNdltd: [id number]_wumUtnwt: [id number]_tcn Start: [id number]_opcFgnop: [id number]_gckEdloz: 01-11-2024 [id number]: [id number]_kaxHusfu: 01-11-2024 Functional Status UgdlAthwatobreYlmgkoOpbacrjg60-35-7864Euypvkcnuh StatusN/AExec[facility] Jerauld Clinical Notes 12-01-2023 to 04-20-2025 Note Date & RpbsXbeeObjdxopo47-36-[address] Kim Murphy stress test to be done at [facility]. Email sent to Nazanin. Patient notified and agreed with plan of care Advised patient of her lab results per Dr. Alvarez's request. 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 She underwent left hip replacement and she went to rehab for about 6 weeks after that she had a kidney stone required lithotripsy. She reports feeling tired and also some shortness of breath occasionally with exertion, she reports also chest heaviness as if she is stressed out while she is relaxing and doing nothing and it lasts about 1 to 2 minutes, it occurs about 3 times a month or so. No other associated symptoms such as palpitation or dizziness or shortness of breath. She reports also increased weight but about 20 pounds in the last month, she thinks it is fluid retention She denies orthopnea or paroxysmal nocturnal dyspnea or legs edema 12/21/2024 Cuate Goodman is a 84 y.o. female with history of PEs last [...] She has a past medical history of Aneurysm, Chronic kidney disease, and Pulmonary embolism (CMS/HCC). [...] ) Father Prostate cancer Father Allergies Morphine and Penicillins Medications Current Outpatient Medications: allopurinol (Zyloprim) 100 mg tablet, Take 1 tablet every day by oral route for 90 days., Disp: , Rfl: calcium carbonate-vitamin D3 500 mg-5 mcg (200 unit) tablet, Take 1 tablet by mouth in the morning., Disp: , Rfl: cholecalciferol (Vitamin D-3) 25 MCG (1000 UT) capsule, Take by mouth., Disp: , Rfl: cyanocobalamin (Vitamin B-12) 500 mcg tablet, Take 500 mcg by mouth in the morning., Disp: , Rfl: Eliquis 5 mg tablet, Take 5 mg by mouth twice a day., Disp: , Rfl: ferrous sulfate 325 (65 Fe) MG EC tablet, Take 65 mg of iron by mouth with breakfast, with lunch, and with evening meal. Do not crush, chew, or split., Disp: , Rfl: magnesium oxide (Mag-Ox) 400 mg (241.3 mg magnesium) tablet, , Disp: , Rfl: mirabegron 50 mg tablet extended release 24 hr, Take 50 mg by mouth once daily as directed., Disp: , Rfl: omeprazole (PriLOSEC) [address] capsule, 20 mg in the morning., Disp: , Rfl: vitamin A 2,400 mcg capsule, Take 2,400 Units by mouth in the morning., Disp: , Rfl: furosemide (Lasix) 40 mg tablet, Take 1 tablet (40 mg) by mouth in the morning., Disp: 90 tablet, Rfl: 3 spironolactone (Aldactone) 25 mg tablet, Take 1 tablet (25 mg) by mouth in the morning., Disp: 30 tablet, Rfl: 11 tolterodine LA (Detrol LA) 4 mg 24 hr capsule, Take 4 mg by mouth in the morning. (Patient not taking: Reported on 04/20/2025), Disp: , Rfl: Last Recorded Vitals Visit Vitals BP 133/88 (BP Location: Left arm, Patient Position: Sitting) Pulse 80 Ht 1.626 m (5' 4 ) Wt 110 kg (243 lb) SpO2 94% BMI 41.71 kg/m??? Smoking Status Never BSA 2.23 m??? Physical Examination: GENERAL: alert and oriented [...] Free T3 3.02, Free T4 1.24, TSH 2.2 (more content not included)...[facility]01-10-2025 Hospital Discharge instructions Patient Education 07/28/2024 10:34:04 Laser Therapy [...] Follow these instructions at home: Medicines Take cfzi-tzw-czgkees and prescription medicines only as told by [...] to keep your pee pale yellow. ?Take mkgc-dxu-vkpcqlj or prescription medicines. ?Eat foods that are [...] provider. Document Revised: 03/05/2023 Document Reviewed: 03/05/2023 [employer] Patient Education 2023 [employer] 07/28/2024 10:34:03 Laser Therapy for Kidney Stones [...] are painful or that are stopping you frombeing able to pee. Tell a health care provider about: Any allergies you have. All medicines you are taking, including vitamins, herbs, eye drops, creams, and tvtj-vmn-ltlyqex medicines. Any problems you or family members [...] unless your provider tells you to. ?Taking rjxn-hpv-oogwanv medicines, vitamins, herbs, and supplements. Tests You [...] for at least 4 weeks before the procedure.These products include cigarettes, chewing tobacco, and vaping [...] blood oxygen level will be monitored until youleave the hospital or clinic. If you had [...] provider. Document Revised: 03/05/2023 Document Reviewed: 03/05/2023 [employer] Patient Education 2023 [employer]. Follow Up Care 07/27/2024 16:37:35 With:Greg AL, STEFFI Castellanos, URO Address: When: Unknown [facility] [address] 01-10-2025 NotePatient Education Nephrology Laser Therapy for Kidney Stones, [...] these instructions at home: Medicines ??? Take tudm-phq-szcgzjy and prescription medicines only as told by [...] keep your pee pale yellow. ? Take vmuc-rqa-xqprjyl or prescription medicines. ? Eat foods that [...] water for a few hours after your procedure.If you have heart or kidney disease, ask [...] provider. Document Revised: 03/05/2023 Document Reviewed: 03/05/2023 [employer] Patient Education ? 2023 [employer] Laser Therapy for Kidney Stones Laser [...] are painful or that are stopping you frombeing able to pee. Tell a health care provider about: ??? Any allergies you have. ??? All medicines you are taking, including vitamins, herbs, eye drops, creams, and vxxd-rpk-pindqqj medicines. ??? Any problems you or family [...] eat and drink. Thes (more content not included)...[facility]08-29-2024 History of Present illness Narrative* Alhaji Dickinson ATC - 03/16/2024 3:00 PM EDT Ortho Nurse - Established Patient Intake Room#: 4 01/11/24 ARTHROPLASTY HIP TOTAL AL left Patient arrives with her grandson in her wheelchair. She is an 83 year old female. She has no complaints and is hoping to move to weight bearing status. Date: 03/16/2024 3:22 PM Patient: Cuate Goodman MR#: [id number] : 1940 Age: 83 y.o. Referring Physician: [...] mouth every 6 hours as needed for upto 7 days. Do not take over 4000mg [...] is allergic to morphine, oxycodone, and penicillins. * Ave Mackey APRN-MARGARITA - 03/16/2024 3:00 PM EDT SUBJECTIVE: Cuate is an established patient of [facility]. Here today for followup. She is now [...] any questions or concerns in the meantime. (DOC:[id number]) I have reviewed the findings of the clinical wind farm support specialist and agree with their assessment. Ave Mackey APRN-MARGARITA Ortho Nurse - Established Patient Intake Room#: 4 01/11/24 ARTHROPLASTY HIP TOTAL AL left Patient arrives with her grandson in her wheelchair. She is an 83 year old female. She has no complaints and is hoping to move to weight bearing status. Date: 03/16/2024 3:22 PM Patient: Cuate Goodman MR#: [id number] : 1940 Age: 83 y.o. Referring Physician: [...] mouth every 6 hours as needed for upto 7 days. Do not take over 4000mg [...] morphine, oxycodone, and penicillins. documented in this encounterRegency Hospital Cleveland West08-07-2024 History of Present illness Narrative* Alhaji Dickinson ATC - 02/23/2024 3:00 PM EDT Ortho Nurse - Established Patient Intake Room#: 6 Patient is an 83 year old female who arrives for 6 week postop (01/11/24) left [facility]. Patient is experiencing 8/10 in pain while at rest and 8/10 pain while active/weightbearing. Last visit visit on 02/02/24 she was advised to continue DVT prophylaxis as prescribed and is still using Eliquis but hasnot been wearing her JOSAFAT hose. She was advised to use TDWB for the next 3 weeks. Patient was encouraged to keep pressure off wound. Date: 02/23/2024 2:58 PM Patient: Cuate Goodman MR#: [id number] : 1940 Age: 83 y.o. Referring Physician: [...] mouth every 6 hours as needed for upto 7 days. Do not take over 4000mg [...] is allergic to morphine, oxycodone, and penicillins. * Paige Damon - 02/23/2024 3:00 PM EDT Cuate Goodman is now 6 weeks s/p left Anterolateral total hip arthroplasty. Her son and granddaughter are present for today's visit. She did have an intra- op fracture of the greater trochanter thatwas secured with plate and cables. She was [...] that this can be followed up on andshe does not go without. -Explained to Cuate [...] what to expect from this hip in thecoming post operative period. Encouraged Cuate to continue pressure offloading efforts of the buttocks. -Communication was sent to Dr. Gomez and Dr. Moreno to make them aware of medications not received. Cuate was encouraged to call both of their offices to obtain adequate follow up. -We will otherwise plan for follow up in 2 weeks for radiological and clinical evaluation unless anearlier need should arise. At this time we will ensure that Cuate is on the appropriate POC for both the hip and other incidental findings. Can discuss options for PT in future at that time. All pertinant portions of the clinical wind farm support specialist documentation was reviewed. Paige Damon I have reviewed the findings of the clinical wind farm support specialist and agree with their assessment. [...] prescribed and is still using Eliquis but hasnot been wearing her JOSAFAT hose. She was advised to use TDWB for the next 3 weeks. Patient was encouraged to keep pressure off wound. Date: 02/23/2024 2:58 PM Patient: Cuate Goodman MR#: [id number] : 1940 Age: 83 y.o. Referring Physician: [...] mouth every 6 hours as needed for upto 7 days. Do not take over 4000mg [...] morphine, oxycodone, and penicillins. documented in this [facility]07-26-2024 Hospital course Narrative* Mohan Gomez MD - 02/11/2024 1:44 PM EDT Images from the original note were not [...] 29.1 -> 29.3 -> 29.4 -> 29.0 ->30.7 -> 31.3 -> >29.3 -> 29.9 -> [...] Dept Phone 02/21/2024 8:45 AM Janet Salazar [facility] Infectious Disease [phone] 02/23/2024 3:00 PM Paige Ramirez [facility] [phone] [facility] Miscellaneous Notes* Nursing Notes - Carmine Alonso RN - 02/11/2024 1:38 PM EDT Patient discharged with all belongings via wheelchair by staff to private residence. Director Of Music provided patient with AVS. Director Of Music educated patient on entire AVS, including but not limited to, follow-up appointments, prescriptions, home medications (new, continued, and stopped), next med dose due date and times, discharge activity and diet, and discharge education based on diagnoses. Patient verbalized understanding of all AVS education provided by contract writer. * Plan of Care - Inge Medeiros RN - 02/11/2024 1:34 AM EDT Problem: Adult Inpatient Plan of Care Goal: [...] of Infection Signs and Symptoms Outcome: Progressing * Nursing Notes - Ramona Mckeon RN - 02/10/2024 1:10 PM EDT Spoke with wound. Per order we were to wait til wound consult was completed. They agree that the lotrisone cream should be used on groin wound. * Plan of Care - Ramona Mckeon RN - 02/10/2024 10:57 AM EDT Problem: Adult Inpatient Plan of Care Goal: [...] of Infection Signs and Symptoms Outcome: Progressing * Plan of Care - Inge Medeiros RN - 02/10/2024 12:47 AM EDT Problem: Adult Inpatient Plan of Care Goal: [...] of Infection Signs and Symptoms Outcome: Progressing * Plan of Care - Eve Marc RN - 02/09/2024 12:53 AM EDT Problem: Adult Inpatient Plan of Care Goal: Plan of Care Review Outcome: Progressing Goal: Patient-Specific Goal (Individualized) Outcome: Progressing Goal: Absence of Hospital-Acquired Illness or Injury Outcome: Progressing Goal: Optimal Comfort and Wellbeing Outcome: Progressing Goal: Readiness for Transition of Care Outcome: Progressing * Therapy Note - Erik Julio PT - 02/08/2024 3:46 PM EDT Weekly Physical Therapy Swing Bed Conference Note [...] & FWW Patient will demonstrate ability to pick and shovel man object from the floor with supervision and LRAD in order to promote independence in the home and demonstrate functional balance improvements in the rehabilitation program. Supervision with construction technology instructor & FWW Patient will perform car transfer with supervision and LRAD for community re- entry at discharge. Supervision Patient will perform written HEP independently in order to continue the gains of the physical therapy program this stay. Supervision The patient has demonstrated small functional improvement with increasing distance & reduced assistance/cues. The patient would continue to benefit from physical therapy interventions but is likely nearing readiness for discharge to next level of care. Erik Julio PT * Plan of Care - Ramona Mckeon RN - 02/05/2024 10:21 AM EDT Problem: Adult Inpatient Plan of Care Goal: [...] of Infection Signs and Symptoms Outcome: Progressing * Plan of Care - Inge Medeiros RN - 02/05/2024 3:48 AM EDT Problem: Adult Inpatient Plan of Care Goal: [...] of Infection Signs and Symptoms Outcome: Progressing * Plan of Care - Ramona Mckeon RN - 02/04/2024 8:56 AM EDT Problem: Adult Inpatient Plan of Care Goal: [...] of Infection Signs and Symptoms Outcome: Progressing * Plan of Care - Ene Garcia RN - 02/03/2024 9:49 PM EDT Problem: Adult Inpatient Plan of Care Goal: [...] of Infection Signs and Symptoms Outcome: Progressing * Plan of Care - Ramona Mckeon RN - 02/03/2024 9:47 AM EDT Problem: Adult Inpatient Plan of Care Goal: [...] of Infection Signs and Symptoms Outcome: Progressing * Plan of Care - Ene Garcia RN - 02/02/2024 8:26 PM EDT Problem: Adult Inpatient Plan of Care Goal: [...] of Infection Signs and Symptoms Outcome: Progressing * Nursing Notes - Ramona Mckeon RN - 02/02/2024 1:17 PM EDT Patient returned from Doctor appointment in stable condition. States no new orders. 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 Patient states they will send something over to us. * Plan of Care - Ramona Mckeon RN - 02/02/2024 11:48 AM EDT Problem: Adult Inpatient Plan of Care Goal: [...] of Infection Signs and Symptoms Outcome: Progressing * Nursing Notes - Ramona Mckeon RN - 02/02/2024 10:22 AM EDT Patient is KEE with Waldemar for Appointment with Paige Damon. Left in stable condition. * Plan of Care - Ene Garcia RN - 02/01/2024 8:03 PM EDT Problem: Adult Inpatient Plan of Care Goal: [...] of Infection Signs and Symptoms Outcome: Progressing * Therapy Note - Erik Julio PT - 02/01/2024 1:49 PM EDT Weekly Physical Therapy Swing Bed Conference Note [...] setting. NT Patient will demonstrate ability to pick and shovel man object from the floor with supervision and LRAD in order to promote independence in the home and demonstrate functional balance improvements in the rehabilitation program. SBA to CGA with construction technology instructor & FWW Patient will perform car transfer with supervision and LRAD for community re- entry at discharge. Mod assist Patient will perform [...] improvement in functional mobility. Erik Julio PT * Nursing Notes - SALLY Flores - 02/01/2024 10:36 AM EDT Waldemar will be picking up pt at 10:15 am 02/01 to transport her fellow up to [facility] office. * Nursing Notes - Abby Olivas RN - 02/01/2024 9:[address] Gomez rounding on patient. * Plan of Care - Abby Olivas RN - 02/01/2024 8:28 AM EDT Problem: Adult Inpatient Plan of Care Goal: [...] of Infection Signs and Symptoms Outcome: Progressing * Plan of Care - Jyoti Beasley RN - 01/31/2024 7:57 PM EDT Problem: Adult Inpatient Plan of Care Goal: [...] of Infection Signs and Symptoms Outcome: Progressing * Nursing Notes - Jyoti Beasley RN - 01/31/2024 11:20 AM EDT Assisted patient to stand at chair to adjust clothing. New ice applied. Patient positioned to preference with support for LLE. Avril wraps applied to bilateral LE's with SCD's. Pump activated. Patient reports her pain as throbbing but denies offer of pain medication. Wants to wait until closer to therapy at 1:45 p.m. * Nursing Notes - Jyoti Beasley RN - 01/31/2024 7:10 AM EDT Rounding completed with Dr. Gomez. Patient up in recliner with legs elevated. Physician reviewed planof care with patient. Patient is to follow up with Paige Damon CNP, on Wednesday. Questions answered by the physician. Call light in reach. Chair exit alarm on. * Plan of Care - Ene Garcia RN - 01/30/2024 9:41 PM EDT Problem: Adult Inpatient Plan of Care Goal: [...] of Infection Signs and Symptoms Outcome: Progressing * Plan of Care - Ramona Mckeon RN - 01/30/2024 9:08 AM EDT Problem: Adult Inpatient Plan of Care Goal: [...] of Infection Signs and Symptoms Outcome: Progressing * Plan of Care - Ene Garcia RN - 01/29/2024 9:09 PM EDT Problem: Adult Inpatient Plan of Care Goal: [...] of Infection Signs and Symptoms Outcome: Progressing * Plan of Care - Ramona Mckeon RN - 01/29/2024 9:06 AM EDT Problem: Adult Inpatient Plan of Care Goal: [...] of Infection Signs and Symptoms Outcome: Progressing * Nursing Notes - Nely Alvarez RN - 01/29/2024 4:00 AM EDT Pt assessment unchanged from prior assessment by this RN, unless otherwise charted in flowsheet. * Nursing Notes - Nely Alvarez RN - 01/29/2024 12:00 AM EDT Pt assessment unchanged from prior assessment by this RN, unless otherwise charted in flowsheet. * Plan of Care - Nely Alvarez RN - 01/28/2024 10:37 PM EDT Problem: Adult Inpatient Plan of Care Goal: [...] of Infection Signs and Symptoms Outcome: Progressing * Plan of Care - Inge Medeiros RN - 01/27/2024 11:49 PM EDT Problem: Adult Inpatient Plan of Care Goal: [...] of Infection Signs and Symptoms Outcome: Progressing * Plan of Care - Ramona Mckeon RN - 01/27/2024 9:49 AM EDT Problem: Adult Inpatient Plan of Care Goal: [...] of Infection Signs and Symptoms Outcome: Progressing * Plan of Care - Ene Garcia RN - 01/26/2024 10:10 PM EDT Problem: Adult Inpatient Plan of Care Goal: [...] of Infection Signs and Symptoms Outcome: Progressing * Therapy Note - Marianna Lawson OT - 01/26/2024 4:15 PM EDT Ongoing supervision of OT POC and treatment assumed from Kali Carbajal OTR/L at [facility]. Marianna Lawson OTR/L 01/26/2024 * Plan of Care - Ramona Mckeon RN - 01/26/2024 9:02 AM EDT Problem: Adult Inpatient Plan of Care Goal: [...] of Infection Signs and Symptoms Outcome: Progressing * Plan of Care - Ramona Mckeon RN - 01/25/2024 8:45 AM EDT Problem: Adult Inpatient Plan of Care Goal: [...] of Infection Signs and Symptoms Outcome: Progressing * Plan of Care - Inge Medeiros RN - 01/24/2024 10:56 PM EDT Problem: Adult Inpatient Plan of Care Goal: [...] of Infection Signs and Symptoms Outcome: Progressing * Plan of Care - Jyoti Beasley RN - 01/24/2024 6:45 PM EDT Problem: Adult Inpatient Plan of Care Goal: [...] of Infection Signs and Symptoms Outcome: Progressing * Nursing Notes - Jyoti Beasley RN - 01/24/2024 8:20 AM EDT Patient reports nausea and fatigue. Zofran administered [...] Call light in place. Chair alarm activated. * Nursing Notes - SALLY Gonsales - 01/24/2024 5:37 AM EDTSummary: AM Care Pt not feeling well, multiple loose stools. Pt declined getting dressed this morning. Pt fatigued, complaining of chills and being cold. PT sleeping in recliner, with call light in reach. Rn aware. * Plan of Care - Ene Garcia RN - 01/23/2024 10:23 PM EDT Problem: Adult Inpatient Plan of Care Goal: [...] of Infection Signs and Symptoms Outcome: Progressing * Plan of Care - Jyoti Beasley RN - 01/23/2024 6:08 PM EDT Problem: Adult Inpatient Plan of Care Goal: [...] of Infection Signs and Symptoms Outcome: Progressing * Nursing Notes - Jyoti Beasely RN - 01/23/2024 2:05 PM EDT Rounding completed with Dr. Gomez. Patient up in recliner with legs elevated. Physician reviewed chart and encouraged patient to continue with fluids. If symptoms of diarrhea or lightheadedness continue or recur, physician to be alerted by nursing. Call light in reach. Chair exit alarm on. * Nursing Notes - Jyoti Beasley RN - 01/23/2024 12:45 PM EDT Assisted patient to bathroom and back to chair. No symptoms of lightheadedness or dizziness. Deniesany problems. Call light in reach. Chair exit alarm on. * Nursing Notes - Jyoti Beasley RN - 01/23/2024 11:06 AM EDT This RN called in to patient room by LAILA Howe. Patient sitting on commode. Lizabeth PT, standing beside patient. Patient is pale, respirations rapid. PT reports to this RN that patient ambulated in roomthen while returning to chair felt the need [...] for nausea, dizziness, pain, diarrhea. Physician informed. * Plan of Care - Ene Garcia RN - 01/22/2024 10:38 PM EDT Problem: Adult Inpatient Plan of Care Goal: [...] of Infection Signs and Symptoms Outcome: Progressing * Nursing Notes - Jyoti Beasley RN - 01/22/2024 7:10 AM EDT Report received from ALLY Gomez, night filler. Patient up in recliner. Awake but drowsy. Call light in reach. Chair exit alarm on. Whiteboard updated. Patient denies needs at this time. * Plan of Care - Inge Medeiros RN - 01/22/2024 5:46 AM EDT Problem: Adult Inpatient Plan of Care Goal: [...] of Infection Signs and Symptoms Outcome: Progressing * Nursing Notes - Inge Medeiros RN - 01/22/2024 1:56 AM EDT Order clarified with Dr Gomez, bowel meds * Nursing Notes - Ramona Mckeon RN - 01/21/2024 12:58 PM EDT Rebecca notified of iron labs. New orders for iron daily. * Therapy Note - Abby Carbajal OT - 01/21/2024 12:54 PM EDT Introduced myself to pt and discussed PLOF, level of assist when she returns home and her needs. Ptreports that she is typically very I and plans on being I when she returns home. Discussed current LOF, home set up and needs. Also had collaborated with [employer] earlier regarding pt's frequency. Pt would benefit from 1- 2 x day treatment session to progress towards a level that she can return home withas minimal physical assist requirement as possible. * Plan of Care - Ramona Mckeon RN - 01/21/2024 7:15 AM EDT Problem: Adult Inpatient Plan of Care Goal: [...] of Infection Signs and Symptoms Outcome: Progressing * Plan of Care - Inge Medeiros RN - 01/21/2024 1:44 AM EDT Problem: Adult Inpatient Plan of Care Goal: [...] factors/behavior modification for fall/injury prevention Outcome: Progressing * Plan of Care - Ramona Mckeon RN - 01/20/2024 9:21 AM EDT Problem: Adult Inpatient Plan of Care Goal: [...] Mobility Impairment Goal: Optimal Mobility Outcome: Progressing * Nursing Notes - Ramona Mckeon RN - 01/20/2024 8:30 AM EDT Patient transferred to [facility]. Does not follow TTWB precautions. Becomes upset when educated or directed to maintain TTWB and states she is. Spoke with PT who states she is not following TTWB for him either. Becomes upset when staff requests her to use two hands on walker. * Plan of Care - Ene Garcia RN - 01/19/2024 10:45 PM EDT Problem: Adult Inpatient Plan of Care Goal: [...] Mobility Impairment Goal: Optimal Mobility Outcome: Progressing * Nursing Notes - Winsome Gold RN - 01/19/2024 3:23 PM EDT Patient welcomed to the unit and admission packet provided and reviewed. Denies questions or concerns at this time. Lying in bed, call light and personal items within reach. MARY Greene at bedside. * Plan of Care - Ramona Mckeon RN - 01/19/2024 3:05 PM EDT Problem: Adult Inpatient Plan of Care Goal: [...] Mobility Impairment Goal: Optimal Mobility Outcome: Progressing * Nursing Notes - Ramona Mckeon RN - 01/19/2024 2:30 PM EDT Patient arrived via stretcher in stable condition. Placed into bed, made comfortable. Call light within reach and alarm in place. documented in this [facility]07-26-2024 Miscellaneous Notes* Nursing Notes - Carmine Alonso RN - 02/11/2024 1:38 PM EDT Patient discharged with all belongings via wheelchair by staff to private residence. Director Of Music provided patient with AVS. Director Of Music educated patient on entire AVS, including but not limited to, follow-up appointments, prescriptions, home medications (new, continued, and stopped), next med dose due date and times, discharge activity and diet, and discharge education based on diagnoses. Patient verbalized understanding of all AVS education provided by contract writer. * Plan of Care - Inge Medeiros RN - 02/11/2024 1:34 AM EDT Problem: Adult Inpatient Plan of Care Goal: [...] of Infection Signs and Symptoms Outcome: Progressing * Nursing Notes - Ramona Mckeon RN - 02/10/2024 1:10 PM EDT Spoke with wound. Per order we were to wait til wound consult was completed. They agree that the lotrisone cream should be used on groin wound. * Plan of Care - Ramona Mckeon RN - 02/10/2024 10:57 AM EDT Problem: Adult Inpatient Plan of Care Goal: [...] of Infection Signs and Symptoms Outcome: Progressing * Plan of Care - Inge Medeiros RN - 02/10/2024 12:47 AM EDT Problem: Adult Inpatient Plan of Care Goal: [...] of Infection Signs and Symptoms Outcome: Progressing * Plan of Care - Eve Marc RN - 02/09/2024 12:53 AM EDT Problem: Adult Inpatient Plan of Care Goal: Plan of Care Review Outcome: Progressing Goal: Patient-Specific Goal (Individualized) Outcome: Progressing Goal: Absence of Hospital-Acquired Illness or Injury Outcome: Progressing Goal: Optimal Comfort and Wellbeing Outcome: Progressing Goal: Readiness for Transition of Care Outcome: Progressing * Therapy Note - Erik Julio PT - 02/08/2024 3:46 PM EDT Weekly Physical Therapy Swing Bed Conference Note [...] & FWW Patient will demonstrate ability to pick and shovel man object from the floor with supervision and LRAD in order to promote independence in the home and demonstrate functional balance improvements in the rehabilitation program. Supervision with construction technology instructor & FWW Patient will perform car transfer with supervision and LRAD for community re- entry at discharge. Supervision Patient will perform written HEP independently in order to continue the gains of the physical therapy program this stay. Supervision The patient has demonstrated small functional improvement with increasing distance & reduced assistance/cues. The patient would continue to benefit from physical therapy interventions but is likely nearing readiness for discharge to next level of care. Erik Julio PT * Plan of Care - Ramona Mckeon RN - 02/05/2024 10:21 AM EDT Problem: Adult Inpatient Plan of Care Goal: [...] of Infection Signs and Symptoms Outcome: Progressing * Plan of Care - Inge Medeiros RN - 02/05/2024 3:48 AM EDT Problem: Adult Inpatient Plan of Care Goal: [...] of Infection Signs and Symptoms Outcome: Progressing * Plan of Care - Ramona Mckeon RN - 02/04/2024 8:56 AM EDT Problem: Adult Inpatient Plan of Care Goal: [...] of Infection Signs and Symptoms Outcome: Progressing * Plan of Care - Ene Garcia RN - 02/03/2024 9:49 PM EDT Problem: Adult Inpatient Plan of Care Goal: [...] of Infection Signs and Symptoms Outcome: Progressing * Plan of Care - Ramona Mckeon RN - 02/03/2024 9:47 AM EDT Problem: Adult Inpatient Plan of Care Goal: [...] of Infection Signs and Symptoms Outcome: Progressing * Plan of Care - Ene Garcia RN - 02/02/2024 8:26 PM EDT Problem: Adult Inpatient Plan of Care Goal: [...] of Infection Signs and Symptoms Outcome: Progressing * Nursing Notes - Ramona Mckeon RN - 02/02/2024 1:17 PM EDT Patient returned from Doctor appointment in stable condition. States no new orders. Returns with [employer] work. Patient states they will send something over to us. * Plan of Care - Ramona Mckeon RN - 02/02/2024 11:48 AM EDT Problem: Adult Inpatient Plan of Care Goal: [...] of Infection Signs and Symptoms Outcome: Progressing * Nursing Notes - Ramona Mckeon RN - 02/02/2024 10:22 AM EDT Patient is KEE with Waldemar for Appointment with Paige Damon. Left in stable condition. * Plan of Care - Ene Garcia RN - 02/01/2024 8:03 PM EDT Problem: Adult Inpatient Plan of Care Goal: [...] of Infection Signs and Symptoms Outcome: Progressing * Therapy Note - Erik Julio, PT - 02/01/2024 1:49 PM EDT Weekly Physical Therapy Swing Bed Conference Note [...] setting. NT Patient will demonstrate ability to pick and shovel man object from the floor with supervision and LRAD in order to promote independence in the home and demonstrate functional balance improvements in the rehabilitation program. SBA to CGA with construction technology instructor & FWW Patient will perform car transfer with supervision and LRAD for community re- entry at discharge. Mod assist Patient will perform [...] improvement in functional mobility. Erik Julio, PT * Nursing Notes - SALLY Flores - 02/01/2024 10:36 AM EDT Waldemar will be picking up pt at 10:15 am 02/01 to transport her fellow up to [facility]. * Nursing Notes - Abby Olivas RN - 02/01/2024 9:[address] Gomez rounding on patient. * Plan of Care - Abby Olivas RN - 02/01/2024 8:28 AM EDT Problem: Adult Inpatient Plan of Care Goal: [...] of Infection Signs and Symptoms Outcome: Progressing * Plan of Care - Jyoti Beasley RN - 01/31/2024 7:57 PM EDT Problem: Adult Inpatient Plan of Care Goal: [...] of Infection Signs and Symptoms Outcome: Progressing * Nursing Notes - Jyoti Beasley RN - 01/31/2024 11:20 AM EDT Assisted patient to stand at chair to adjust clothing. New ice applied. Patient positioned to preference with support for LLE. Avril wraps applied to bilateral LE's with SCD's. Pump activated. Patient reports her pain as throbbing but denies offer of pain medication. Wants to wait until closer to therapy at 1:45 p.m. * Nursing Notes - Jyoti Beasley RN - 01/31/2024 7:10 AM EDT Rounding completed with Dr. oGmez. Patient up in recliner with legs elevated. Physician reviewed planof care with patient. Patient is to follow up with Paige Damon CNP, on Wednesday. Questions answered by the physician. Call light in reach. Chair exit alarm on. * Plan of Care - Ene Garcia RN - 01/30/2024 9:41 PM EDT Problem: Adult Inpatient Plan of Care Goal: [...] of Infection Signs and Symptoms Outcome: Progressing * Plan of Care - Ramona Mckeon RN - 01/30/2024 9:08 AM EDT Problem: Adult Inpatient Plan of Care Goal: [...] of Infection Signs and Symptoms Outcome: Progressing * Plan of Care - Ene Garcia RN - 01/29/2024 9:09 PM EDT Problem: Adult Inpatient Plan of Care Goal: [...] of Infection Signs and Symptoms Outcome: Progressing * Plan of Care - Ramona Mckeon RN - 01/29/2024 9:06 AM EDT Problem: Adult Inpatient Plan of Care Goal: [...] of Infection Signs and Symptoms Outcome: Progressing * Nursing Notes - Nely Alvarez RN - 01/29/2024 4:00 AM EDT Pt assessment unchanged from prior assessment by this RN, unless otherwise charted in flowsheet. * Nursing Notes - Nely Alvarez RN - 01/29/2024 12:00 AM EDT Pt assessment unchanged from prior assessment by this RN, unless otherwise charted in flowsheet. * Plan of Care - Nely Alvarez RN - 01/28/2024 10:37 PM EDT Problem: Adult Inpatient Plan of Care Goal: [...] of Infection Signs and Symptoms Outcome: Progressing * Plan of Care - Inge Medeiros RN - 01/27/2024 11:49 PM EDT Problem: Adult Inpatient Plan of Care Goal: [...] of Infection Signs and Symptoms Outcome: Progressing * Plan of Care - Ramona Mckeon RN - 01/27/2024 9:49 AM EDT Problem: Adult Inpatient Plan of Care Goal: [...] of Infection Signs and Symptoms Outcome: Progressing * Plan of Care - Ene Garcia RN - 01/26/2024 10:10 PM EDT Problem: Adult Inpatient Plan of Care Goal: [...] of Infection Signs and Symptoms Outcome: Progressing * Therapy Note - Marianna Lawson OT - 01/26/2024 4:15 PM EDT Ongoing supervision of OT POC and treatment assumed from JANN Welch/Karin at [facility]. JANN Travis/L 01/26/2024 * Plan of Care - Ramona Mckeon RN - 01/26/2024 9:02 AM EDT Problem: Adult Inpatient Plan of Care Goal: [...] of Infection Signs and Symptoms Outcome: Progressing * Plan of Care - Ramona Mckeon RN - 01/25/2024 8:45 AM EDT Problem: Adult Inpatient Plan of Care Goal: [...] of Infection Signs and Symptoms Outcome: Progressing * Plan of Care - Inge Medeiros RN - 01/24/2024 10:56 PM EDT Problem: Adult Inpatient Plan of Care Goal: [...] of Infection Signs and Symptoms Outcome: Progressing * Plan of Care - Jyoti Beasley RN - 01/24/2024 6:45 PM EDT Problem: Adult Inpatient Plan of Care Goal: [...] of Infection Signs and Symptoms Outcome: Progressing * Nursing Notes - Jyoti Beasley RN - 01/24/2024 8:20 AM EDT Patient reports nausea and fatigue. Zofran administered [...] Call light in place. Chair alarm activated. * Nursing Notes - SALLY Gonsales - 01/24/2024 5:37 AM EDTSummary: AM Care Pt not feeling well, multiple loose stools. Pt declined getting dressed this morning. Pt fatigued, complaining of chills and being cold. PT sleeping in recliner, with call light in reach. Rn aware. * Plan of Care - Ene Garcia RN - 01/23/2024 10:23 PM EDT Problem: Adult Inpatient Plan of Care Goal: [...] of Infection Signs and Symptoms Outcome: Progressing * Plan of Care - Jyoti Beasley RN - 01/23/2024 6:08 PM EDT Problem: Adult Inpatient Plan of Care Goal: [...] of Infection Signs and Symptoms Outcome: Progressing * Nursing Notes - Jyoti Beasley RN - 01/23/2024 2:05 PM EDT Rounding completed with Dr. Gomez. Patient up in recliner with legs elevated. Physician reviewed chart and encouraged patient to continue with fluids. If symptoms of diarrhea or lightheadedness continue or recur, physician to be alerted by nursing. Call light in reach. Chair exit alarm on. * Nursing Notes - Jyoti Beasley RN - 01/23/2024 12:45 PM EDT Assisted patient to bathroom and back to chair. No symptoms of lightheadedness or dizziness. Deniesany problems. Call light in reach. Chair exit alarm on. * Nursing Notes - Jyoti Beasley RN - 01/23/2024 11:06 AM EDT This RN called in to patient room by LAILA Howe. Patient sitting on commode. Lizabeth PT, standing beside patient. Patient is pale, respirations rapid. PT reports to this RN that patient ambulated in roomthen while returning to chair felt the need [...] for nausea, dizziness, pain, diarrhea. Physician informed. * Plan of Care - Ene Garcia RN - 01/22/2024 10:38 PM EDT Problem: Adult Inpatient Plan of Care Goal: [...] of Infection Signs and Symptoms Outcome: Progressing * Nursing Notes - Jyoti Beasley RN - 01/22/2024 7:10 AM EDT Report received from ALLY Gomez, night filler. Patient up in recliner. Awake but drowsy. Call light in reach. Chair exit alarm on. Whiteboard updated. Patient denies needs at this time. * Plan of Care - Inge Medeiros RN - 01/22/2024 5:46 AM EDT Problem: Adult Inpatient Plan of Care Goal: [...] of Infection Signs and Symptoms Outcome: Progressing * Nursing Notes - Inge Medeiros RN - 01/22/2024 1:56 AM EDT Order clarified with Dr Gomez, bowel meds * Nursing Notes - Ramona Mckeon RN - 01/21/2024 12:58 PM EDT Rebecca notified of iron labs. New orders for iron daily. * Therapy Note - Abby Carbajal OT - 01/21/2024 12:54 PM EDT Introduced myself to pt and discussed PLOF, level of assist when she returns home and her needs. Ptreports that she is typically very I and plans on being I when she returns home. Discussed current LOF, home set up and needs. Also had collaborated with ROBER earlier regarding pt's frequency. Pt would benefit from 1- 2 x day treatment session to progress towards a level that she can return home withas minimal physical assist requirement as possible. * Plan of Care - Ramona Mckeon RN - 01/21/2024 7:15 AM EDT Problem: Adult Inpatient Plan of Care Goal: [...] of Infection Signs and Symptoms Outcome: Progressing * Plan of Care - Inge Medeiros RN - 01/21/2024 1:44 AM EDT Problem: Adult Inpatient Plan of Care Goal: [...] factors/behavior modification for fall/injury prevention Outcome: Progressing * Plan of Care - Ramona Mckeon RN - 01/20/2024 9:21 AM EDT Problem: Adult Inpatient Plan of Care Goal: [...] Mobility Impairment Goal: Optimal Mobility Outcome: Progressing * Nursing Notes - Ramona Mckeon RN - 01/20/2024 8:30 AM EDT Patient transferred to [facility]. Does not follow TTWB precautions. Becomes upset when educated or directed to maintain TTWB and states she is. Spoke with PT who states she is not following TTWB for him either. Becomes upset when staff requests her to use two hands on walker. * Plan of Care - Ene Garcia RN - 01/19/2024 10:45 PM EDT Problem: Adult Inpatient Plan of Care Goal: [...] Mobility Impairment Goal: Optimal Mobility Outcome: Progressing * Nursing Notes - Winsome Gold RN - 01/19/2024 3:23 PM EDT Patient welcomed to the unit and admission packet provided and reviewed. Denies questions or concerns at this time. Lying in bed, call light and personal items within reach. MARY Greene at bedside. * Plan of Care - Ramona Mckeon RN - 01/19/2024 3:05 PM EDT Problem: Adult Inpatient Plan of Care Goal: [...] Mobility Impairment Goal: Optimal Mobility Outcome: Progressing * Nursing Notes - Ramona Mckeon RN - 01/19/2024 2:30 PM EDT Patient arrived via stretcher in stable condition. Placed into bed, made comfortable. Call light within reach and alarm in place. documented in this [facility]07-26-2024 History of Present illness Narrative* Abby Carbajal OT - 02/11/2024 9:17 AM EDT 02/11/24 0917 Time In/Out OT Therapy Completed Attempted Attempted Reason Patient declined session;Other (see comments) (pt refused any OT this date- reports that she is leaving today and will be fine, declined any questions or concerns including ADL adaptations, has a HEP with tband and reports that she is I and knowthe exercises. No tx this per pt.) * Janet Moreno MD - 02/11/2024 7:59 AM EDT Images from the original note were not [...] drainage from her hip. Patient denies any specificareas pain in her hip joint. There is [...] Mohan Gomez MD, 100 mg at 02/10/24 08 apixaban (ELIQUIS) tablet 5 mg, 5 mg, Oral, Q12H, Mohan Gomez MD, 5 mg at 02/10/24 211 bisacodyl (DULCOLAX) suppository 10 mg, 10 mg, [...] PRN, Mohan Gomez MD, 2 tablet at 02/10/24 235 lactulose (CHRONULAC) oral solution 20 g, [...] Mohan Gomez MD, 5 mg at 02/10/24 9631 Allergies Allergen Reactions Morphine Nausea and Vomiting [...] Intake/Output Summary (Last 24 hours) at 02/11/2024 9339 Last data filed at 02/10/2024 2300 Gross [...] history of left total knee arthroplasty. History ofright total hip arthroplasty. Left total hip arthroplasty [...] post discharge f/up appt Janet Moreno MD * Mohan Gomez MD - 02/10/2024 9:53 PM EDT DAILY PROGRESS NOTE Admit Date: 01/19/2024 Date of Evaluation: 49:54 PM [facility] LOS: 22 days IMPRESSION AND [...] 29.3 -> 29.4 -> 29.0 -> 30.7 ->31.3 -> >29.3 -> 29.9 -> 29.3 -> [...] In process LABS Labs-ABGs Labs-CBC @CBCBRIEFROUNDS@ Labs-Chem 7([facility]) Bun/Creat/Cl/CO2/Glucose: 19/0.80/105/29/97 (02/10 436) Na/K+/Phos/Mg/Ca: 135/4.3/--/--/8.8 (02/10 [...] strength, normal tone Skin: Warm and dry * Janet Moreno MD - 02/10/2024 2:24 PM EDT Images from the original note were not [...] drainage from her hip. Patient denies any specificareas pain in her hip joint. There is [...] bilateral inner thigh areas have improved. Are chip drier. Less irritation and pain. Patient was [...] Mohan Gomez MD, 1 tablet at 02/10/24 08 ondansetron (ZOFRAN-ODT) disintegrating tablet 4 mg, 4 [...] history of left total knee arthroplasty. History ofright total hip arthroplasty. Left total hip arthroplasty [...] -possible home on 02/10 Janet Moreno MD * Kristyn Sutton, BALER OPERATOR - 02/10/2024 1:50 PM EDT 02/10/24 1322 Physical Therapy Minutes Start Time [...] CARE Score - Sit to Stand 5 Chair/Ich-qu-Eveco Transfer Assistance Needed Set-up / clean-up;Adaptive equipment Physical Assistance Level No physical assistance CARE Score - Chair/Pde-cf-Zgmhs Transfer 5 Toilet Transfer Assistance Needed Set-up [...] wear herself out prior to going home. * Neeta Yap RN - 02/10/2024 1:48 PM EDT Patient is seen by wound care nursing provider Cherri Tejeda CNP to evaluate groin excoriation. The bilateral groin areas are reddened and dry, There is a pillow between the thighs helping to keep theskin dry. Patinet states she feels ithe area feels better since the antifungal oral medication had been started. Rehab nurse asking if wound care physician is agreeable to topical antifungal, kenneywill begin topical treatment today. Wound care provider is updating Dr Moreno. * DEVIN Sullivan - 02/10/2024 11:34 AM EDT 02/10/24 0849 Time In/Out Time In 0849 Time Out 0851 Total Visit Time 2 minutes OT Therapy Completed Attempted Attempted Reason Patient declined session (Patient reported already completed ADLs last night and this morning. Reported no concerns about going home and declined OT session.) DEVIN Sullivan 02/10/2024 * Kristyn Sutton PTA - 02/10/2024 10:00 AM EDT 02/10/24 1000 Time In/Out Time In 1000 PT Therapy Completed Attempted Attempted Reason Patient declined session (Pt declined d/t wanting to wait till wound care came to take a look at her inner thigh area. Pt reports she will walke this PM.) * Mohan Gomez MD - 02/09/2024 11:47 PM EDT DAILY PROGRESS NOTE Admit Date: 01/19/2024 Date of Evaluation: 1:47 PM [facility] LOS: 21 days IMPRESSION AND [...] 29.3 -> 29.4 -> 29.0 -> 30.7 ->31.3 -> >29.3 -> 29.9 -> 29.3 -> [...] In process LABS Labs-ABGs Labs-CBC @CBCBRIEFROUNDS@ Labs-Chem 7([facility]) Bun/Creat/Cl/CO2/Glucose: 20/0.90/104/28/103 (02/08 449) Na/K+/Phos/Mg/Ca: 135/4.5/--/--/9.1 (02/08 [...] strength, normal tone Skin: Warm and dry * Janet Moreno MD - 02/09/2024 7:55 PM EDT Images from the original note were not [...] drainage from her hip. Patient denies any specificareas pain in her hip joint. There is [...] with physical therapy because of this area betweenher legs being very sensitive ROS A complete [...] mg, 650 mg, Oral, Q4H PRN, Mohan Rebecca, MD, 650 mg at 02/07/24 0908 Allopurinol [...] history of left total knee arthroplasty. History ofright total hip arthroplasty. Left total hip arthroplasty [...] has overall stabilized. Would recommend discontinuing trends aspatient may have some level of chronic elevation [...] home later this week Janet Moreno MD * Abby Carbajal OT - 02/09/2024 3:45 PM EDT 02/09/24 1545 Time In/Out OT Therapy Completed Attempted Attempted Reason Patient declined session (pt refused due to pain in B inner thigh. Nursing aware) * Kristyn Sutton PTA - 02/09/2024 10:25 AM EDT 02/09/24 1025 Time In/Out Time In 1025 PT Therapy Completed Attempted Attempted Reason Patient declined session (Pt having increased pain d/t wounds at thighs.) * Abby Carbajal OT - 02/09/2024 9:00 AM EDT 02/09/24 0900 Time In/Out OT Therapy Completed Attempted Attempted Reason Patient declined session (pt was in bed and declined any type of treatment/activity due to fatigue. Agreed that I coudl check back later.) * Mohan Gomez MD - 02/08/2024 7:58 PM EDT DAILY PROGRESS NOTE Admit Date: 01/19/2024 Date of Evaluation: 47:58 PM [facility] LOS: 20 days IMPRESSION AND [...] 29.4 -> 29.0 -> 30.7 -> 31.3 ->>29.3 -> 29.9 -> 29.3 -> 31.4 -> [...] In process LABS Labs-ABGs Labs-CBC @CBCBRIEFROUNDS@ Labs-Chem 7([facility]) Bun/Creat/Cl/CO2/Glucose: 14/0.80/104/30/96 (02/07 450) Na/K+/Phos/Mg/Ca: 133/4.3/--/--/8.9 (02/07 [...] strength, normal tone Skin: Warm and dry * Janet Moreno MD - 02/08/2024 4:23 PM EDT Infectious Disease progress note SUBJECTIVE History of [...] drainage from her hip. Patient denies any specificareas pain in her hip joint. There is [...] or diarrhea. No urinary symptoms. Patient states shewalked 200 ft twice yesterday. Patient states her [...] history of left total knee arthroplasty. History ofright total hip arthroplasty. Left total hip arthroplasty [...] has overall stabilized. Would recommend discontinuing trends aspatient may have some level of chronic elevation Anemia -hemoglobin 9.5, 10.7, 10, 10.1, 10.1, 9.8, 10.3, 10.6, 10, 10.3, 10, 10.6, 10.5, 10.7, 10.2, 10.4,10.1, 10.5 10.4 -previous anemia workup in November [...] me in her care Janet Moreno MD * Kristyn Sutton BALER OPERATOR - 02/08/2024 1:51 PM EDT 02/08/24 1325 Physical Therapy Minutes Start Time [...] out sitting down for a rest break. * MATT Rey - 02/08/2024 1:50 PM EDT Maureen, Swing Bed, reports NOMNC being issued as patient states she is wanting to discharge on Wednesday. PT/OT recommending Home Health and transport chair. Maureen states patient does not want transport chair at discharge. CAMMIE spoke with patient at bedside. Patient states she is going home Wednesday and granddaughter will bestaying with her at night through around 14:00, [...] to go to the second floor of herhome, also has a walk in shower and [...] with her PCP, SW encouraged her to followup with PCP for services if she gets home and decides she would like further therapy, she verbalized understanding. Patient reports no questions or concerns at this time. Maureen updated. * ROBER Alvarado - 02/08/2024 12:25 PM EDT 02/08/24 1008 Occupational Therapy Minutes Start Time 0955 Stop Time 1008 Time Calculation 13 OT Individual Minutes 13 minutes General Pain Documentation (Adult, OB, Peds) Presence of Pain reports pain/discomfort Pain Location leg, left Select Pain Scale DVPRS (Defense and Veterans Pain Rating Scale) (Adult- Cognitively Intact) DVPRS (Defense and Veterans Pain Rating [...] met. Continue OT per POC ROBER Alvarado * Kristyn Sutton PTA - 02/08/2024 9:46 AM EDT 02/08/24 0930 Physical Therapy Minutes Start Time 30 Stop Time 46 Time Calculation 16 PT Individual Minutes 16 minutes General Pain Documentation (Adult, OB, Peds) Presence of Pain reports pain/discomfort Pain Location leg, left Select Pain Scale DVPRS (Defense and Veterans Pain Rating Scale) (Adult- Cognitively Intact) DVPRS (Defense and Veterans Pain Rating [...] after ambulating d/t fatigue and LLE pain. * Mohan Gomez MD - 02/07/2024 11:21 PM EDT DAILY PROGRESS NOTE Admit Date: 01/19/2024 Date of Evaluation: 1:21 PM [facility] LOS: 19 days IMPRESSION AND [...] In process LABS Labs-ABGs Labs-CBC @CBCBRIEFROUNDS@ Labs-Chem 7([facility]) Bun/Creat/Cl/CO2/Glucose: 11/0.70/105/27/95 (02/07 436) Na/K+/Phos/Mg/Ca: 133/4.3/--/--/8.8 (02/07 [...] strength, normal tone Skin: Warm and dry * Janet Moreno MD - 02/07/2024 4:19 PM EDT Infectious Disease progress note SUBJECTIVE History of [...] left hip site approximately on 01/18 or 7/4 per nursing report. There has been no described drainage from her hip. Patient denies any specificareas pain in her hip joint. There is [...] which is gradually improving. No pain. Patient statesshe is doing better with therapy and ambulated [...] Mohan Gomez MD, 2 tablet at 02/06/24 230 lactulose (CHRONULAC) oral solution 20 g, 20 [...] Mohan Gomez MD, 4 mg at 02/07/24 09 Zolpidem (AMBIEN) tablet 5 mg, 5 mg, Oral, QHS PRN, Mohan Gomez MD, 5 mg at 02/06/24 2306 Allergies Allergen Reactions Morphine Nausea and Vomiting Other Reaction(s): GI intolerance Oxycodone Nausea and Vomiting Other Reaction(s): GI intolerance Penicillins Hives Vitals: 07/21/24 1650 02/06/24 2030 02/07/24 0701 02/07/24 0732 [...] history of left total knee arthroplasty. History ofright total hip arthroplasty. Left total hip arthroplasty [...] 10, 10.3, 10, 10.6, 10.5, 10.7, 10.2, 10.4,10.1, 10.5 -previous anemia workup in November of [...] -wound care consulted -Offloading Janet Moreno MD * Manas Mayen RD - 02/07/2024 3:37 PM EDT NUTRITION ASSESSMENT LENGTH OF STAY Ms. Cuate Goodman is a 83 y.o. female was admitted to [facility] for: 1. S/P total left hip arthroplasty 2. Status post total replacement of left hip Nutrition Assessment Subjective assessment / comments: Pt has been admitted to swing bed for strengthening/rehab needs 2/2 s/p hip arthroplasty by Dr. Heredia. Patient with fair oral intakes noted and mentioned to FNS brood station manager the was getting tired of same [...] Patient to be encouraged to consume adequate intakesat all meals to maintain LBM and prevent [...] (227 lb) 12/01/23 103 kg (227 lb) Jenkins body weight: 54.7 kg (120 lb 9.5 [...] WBC 5.1 02/07/2024 RBC 3.23 (L) 02/07/2024 [id number] 16.9 01/20/2024 PMH & PSH: Past Medical [...] ALDO Linn Registered Dietitian, Licensed Dietitian 02/07/24 * Anisa Duran, BALER OPERATOR - 02/07/2024 2:00 PM EDT 02/07/24 1400 Physical Therapy Minutes Start Time [...] call light within reach. Denies further needs. * DEVIN Mendoza - 02/07/2024 1:49 PM EDT 02/07/24 1344 Occupational Therapy Minutes Start Time [...] OT per Plan of Care. DEVIN Mendoza/Karin * DEVIN Sullivan - 02/07/2024 12:25 PM EDT 02/07/24 1028 Occupational Therapy Minutes Start Time 1028 Stop Time 1100 Time Calculation 32 OT Individual Minutes 32 minutes Toileting Hygiene Assistance Needed Set-up / clean-up;Supervision;Verbal cues;Adaptive equipment Physical Assistance Level No physical assistance Comment Patient completed chase hygiene in sitting, prakash provided wet cloth for patient to complete posterior chase hygiene in standing using standward walker to maintain balance, requiring verbal cuesas reminder of TTWB status. CARE Score - [...] on TTWB L LE. DEVIN Sullivan 02/07/2024 * Kristyn Sutton PTA - 02/07/2024 11:49 AM EDT 02/07/24 1125 Time In/Out Time In 1125 [...] Transfer Skill: Sit To Stand, Rehab Eval [place] (Sit-Stand Transfers) supervision Physical Assist/Nonphysical Assist: Sit/Stand supervision Weight-Bearing Restrictions: Sit/Stand toe touch weight-bearing Assistive Device For Transfer: Sit/Stand 2 wheeled walker Gait Skills, PT Eval Level of [place]: Gait supervision Physical Assist/Nonphysical Assist: Gait 1 [...] call light and tray table in reach. * Mohan Gomez MD - 02/06/2024 6:00 PM EDT DAILY PROGRESS NOTE Admit Date: 01/19/2024 [facility] LOS: 19 days IMPRESSION AND [...] In process LABS Labs-ABGs Labs-CBC @CBCBRIEFROUNDS@ Labs-Chem 7([facility]) Bun/Creat/Cl/CO2/Glucose: 17/0.80/104/29/100 (02/05 0453) Na/K+/Phos/Mg/Ca: 135/4.4/--/--/8.6 (02/05 453) Labs-Coags WBC (WHITE [...] strength, normal tone Skin: Warm and dry * Rianna Phillips PTA - 02/06/2024 10:48 AM EDT 02/06/24 1048 Physical Therapy Minutes Start Time [...] to maintain TTWB on LLE pt ambulated [id number] and 75ftx1 with X1 seated rest; pt ambulated with improved TTWB follow through this date and demonstrated good balance; pt navigated 90 degree and 180 degree turns with CGA on turns only; therapist provided Min assist for STS from WC to RW; pt seated in room chairwith all needs met post session; pt denied all further interventions stating that she was tired andhad done enough for today Rianna Phillips PTA * Janet Moreno MD - 02/06/2024 9:04 AM EDT Infectious Disease progress note SUBJECTIVE History of [...] drainage from her hip. Patient denies any specificareas pain in her hip joint. There is [...] the wound which is ongoing. Wound is chip drier but still has mild erythema. No [...] history of left total knee arthroplasty. History ofright total hip arthroplasty. Left total hip arthroplasty [...] 10, 10.3, 10, 10.6, 10.5, 10.7, 10.2, 10.4,10.1 -previous anemia workup in November of 2022 [...] -wound care consulted -Offloading Janet Moreno MD * Mohan Gomez MD - 02/05/2024 10:47 PM EDT DAILY PROGRESS NOTE Admit Date: 01/19/2024 Date of Evaluation: 410:47 PM [facility] LOS: 17 days IMPRESSION AND [...] In process LABS Labs-ABGs Labs-CBC @CBCBRIEFROUNDS@ Labs-Chem 7([facility]) Bun/Creat/Cl/CO2/Glucose: 14/0.80/104/30/101 (02/04 525) Na/K+/Phos/Mg/Ca: 135/4.3/--/--/8.8 (02/04 [...] strength, normal tone Skin: Warm and dry * ROBER Hale - 02/05/2024 11:40 AM EDT 02/05/24 1054 Time In/Out Time In 1054 Time Out 1118 Total Visit Time 24 minutes Subjective Subjective Reports Pt agreeable to OT on second attempt. First attempt pt reported nausea and vomiting. Nursing aware and addressed. Transfer Skill: Sit To Stand, Rehab Eval [place] (Sit-Stand Transfers) contact guard Physical Assist/Nonphysical Assist: Sit/Stand verbal cues;supervision Transfer Skill: Toilet Transfer, Rehab Eval Assistive Device grab bars;2 wheeled walker Grooming [place] Level (Grooming) grooming skills;hair care, combing/brushing;wash face, hands;contact guard assist (CGA while standing at sink with mod cues to facilitate TTWB.) Physical Assist/Nonphysical Assist supervision;verbal cues Lower Body Dressing Level of [place] contact guard Physical Assist/Nonphysical Assist supervision;verbal cues Assistive Device construction technology instructor Toileting Level of [place] contact guard Physical Assist/Nonphysical Assist supervision;verbal cues Pt required extra time for task completion on this date. Pt would benefit from further training to ensure TTWB is maintained throughout ADLs/functional mobility. All needs met prior to exiting. Radha Serna PRAKASH/L * Rianna LAILA Phillips - 02/05/2024 11:19 AM EDT 02/05/24 1119 Physical Therapy Minutes Start Time 1119 Stop Time 1136 Time Calculation 17 PT Individual Minutes 17 minutes General Pain Documentation (Adult, OB, Peds) Presence of Pain denies pain/discomfort Presence of Pain Score (Auto-calculated) 0 Pt finishing with PRAKASH when this BALER OPERATOR arrived; BALER OPERATOR observed pt being increasingly rude and aggravated with PRAKASH; pt asked if she needed a break or if she was willing to work with this BALER OPERATOR pt stated No! I guess Ill do it now and get it over with but I'm not doing anything that I dont have to; dont ask me to do extra ; therapist asked pt to assist with moving BLE for supine to sit transfer; pt refused to assist and demanded BALER OPERATOR to move BLE; therapist provided max assist [...] applied to L hip Rianna Phillips PTA * Janet Moreno MD - 02/05/2024 7:44 AM EDT Infectious Disease progress note SUBJECTIVE History of Present Illness: Caute Goodman 83 y.o. female with a history [...] drainage from her hip. Patient denies any specificareas pain in her hip joint. There is [...] history of left total knee arthroplasty. History ofright total hip arthroplasty. Left total hip arthroplasty [...] -wound care consulted -Offloading Janet Moreno MD * Mohan Gomez MD - 02/04/2024 6:00 PM EDT DAILY PROGRESS NOTE ] Admit Date: 01/19/2024 [facility] LOS: 17 days IMPRESSION AND [...] In process LABS Labs-ABGs Labs-CBC @CBCBRIEFROUNDS@ Labs-Chem 7([facility]) Bun/Creat/Cl/CO2/Glucose: 18/0.80/104/31/96 (02/03 525) Na/K+/Phos/Mg/Ca: 136/4.4/--/--/8.8 (02/03 [...] strength, normal tone Skin: Warm and dry * Abby Carbajal OT - 02/04/2024 4:02 PM EDT 02/04/24 1602 Time In/Out OT Therapy Completed Attempted (had attempted before lunch also and pt was sound asleep and was sound asleep and unable to be aroused - nurse informed) Attempted Reason Patient declined session (nurse informed of pt refusal) * Janet Moreno MD - 02/04/2024 2:52 PM EDT Infectious Disease progress note SUBJECTIVE History of [...] drainage from her hip. Patient denies any specificareas pain in her hip joint. There is [...] history of left total knee arthroplasty. History ofright total hip arthroplasty. Left total hip arthroplasty [...] wounds -wound care consulted Janet Moreno MD * Kristyn Sutton PTA - 02/04/2024 2:24 PM EDT 02/04/24 1400 Physical Therapy Minutes Start Time [...] treatment. Nursing notified of pt in bathroom. * Gisell Fitch RN - 02/04/2024 1:55 PM EDT Pt seen today for 1x wound consult. Was assisted to stand with assist of Nisha HERNANDEZ with use of walker and gait belt. To both posterior thighs there are DTP injuries. The right post thigh area measures 13x18, the left measures 12x13. The right is darker than the left, darker purple in center. Bothareas do not jj until further away from the centers of the discoloration. Instructed/educated pt on importance of offloading the sites often throughout the days to prevent the areas from worsening and opening. According to the pictures taken yesterday from Paige Damon the sites appear a little better. Pt agrees to move more and offload the sites Thank you * Mohan Gomez MD - 02/03/2024 11:05 PM EDT DAILY PROGRESS NOTE Admit Date: 01/19/2024 Date of Evaluation: 1:05 PM [facility] LOS: 15 days IMPRESSION AND [...] 25.8 -> 26.1 -> 26.3 -> 21.9, st able. Finished a course of linezolid Finished a [...] In process LABS Labs-ABGs Labs-CBC @CBCBRIEFROUNDS@ Labs-Chem 7([facility]) Bun/Creat/Cl/CO2/Glucose: 17/0.90/104/29/100 (02/03 552) Na/K+/Phos/Mg/Ca: 135/4.4/--/--/9.1 (02/03 [...] strength, normal tone Skin: Warm and dry * Kristyn Sutton PTA - 02/03/2024 2:35 PM EDT 02/03/24 1400 Physical Therapy Minutes Start Time 1400 Stop Time 1435 Time Calculation 35 PT Individual Minutes 35 minutes General Pain Documentation (Adult, OB, Peds) Presence of Pain denies pain/discomfort Presence of Pain Score (Auto-calculated) 0 Sit to Lying Assistance Needed Physical assistance Physical Assistance Level Total assistance Comment Pt completed sit to supine requiring MaxA+2.Attempted to have pt try using leg senior sales operations analyst although pt stated I can't when asked [...] Justification Impairments in Body Structure/Function strength;pain;aerobic capacity/endurance * Marianna Lawson, OT - 02/03/2024 1:13 PM EDT 02/03/24 0951 Occupational Therapy Minutes Start Time 0951 Stop Time 1041 Time Calculation 50 OT Individual Minutes 50 minutes General Pain Documentation (Adult, OB, Peds) Presence of Pain reports pain/discomfort Pain Location hip, left;leg, left Pain Management Interventions declines intervention (states pain is tolerable) Select Pain Scale DVPRS (Defense and Veterans Pain Rating Scale) (Adult- Cognitively Intact) DVPRS (Defense and Veterans Pain Rating [...] with SBA-CGA for balance using FWW and construction technology instructor with set up while seated. Donned underwear using construction technology instructor while seated and SBA-CGA to don over waist using FWW. CARE Score - Lower Body Dressing 4 Putting On/Taking Off Footwear Assistance Needed Physical assistance Physical Assistance Level Total assistance Comment Declined use of equipment CARE Score - Putting On/Taking Off Footwear 1 Toileting Hygiene Assistance Needed Incidental touching;Adaptive equipment Comment SBA-CGA using FWW CARE Score - Toileting Hygiene 4 Chair/Hhy-tk-Nernq Transfer Assistance Needed Incidental touching;Adaptive equipment Comment SBA-CGA using FWW (initial CGA, as first time standing from chair this AM per pt report) CARE Score - Chair/Dhd-li-Vepgz Transfer 4 Toilet Transfer Assistance Needed Incidental touching;Adaptive equipment Comment SBA-CGA using FWW CARE Score - Toilet Transfer 4 S: Pleasant and conversant throughout encounter. O: Seen for ADL training (see above). In addition to above, pt ambulated with initial CGA and then SBA to/from bathroom using FWW. Pt continent of BM. Grooming tasks including brushing her hair whileseated with set up. Reclined in chair at end of session with her call light and personal items placed in reach. Chair alarm activated with green light flashing. A: Improved independence with ADLs with adherence to global hip precautions. TTWB with instructional cue. P: OT per POC Marianna Lawson OTR/L 02/03/2024 * Kristyn Sutton PTA - 02/03/2024 11:26 AM EDT 02/03/24 1057 Physical Therapy Minutes Start Time [...] Justification Impairments in Body Structure/Function pain;strength;aerobic capacity/endurance * Janet Moreno MD - 02/03/2024 11:07 AM EDT Infectious Disease progress note SUBJECTIVE History of [...] drainage from her hip. Patient denies any specificareas pain in her hip joint. There is [...] available at hospital. Patient denies any abdominal painor nausea or vomiting. No urinary symptoms. Case [...] history of left total knee arthroplasty. History ofright total hip arthroplasty. Left total hip arthroplasty [...] swish and swallow, resolved Janet Moreno MD * MATT Suarez - 02/03/2024 8:13 AM EDT Met with Cuate for discharge planning. Cuate reports wanting to transfer to a facility closer to my family if she is expected to remain in swing-bed for longer than a couple of more weeks. Cuate states if it is going to be a week or two, then I will stay here. T[employer] AND GROUNDS SUPERVISOR informs Cuate that her insurance review was 01/31/24 and determination is still pending. Cuate agreeable for clinical social work aide to update her once insurance determination is known. CM will continue to follow. MATT Suarez 02/03/2024 8:17 AM * Mohan Gomez MD - 02/02/2024 10:41 PM EDT DAILY PROGRESS NOTE Admit Date: 01/19/2024 Date of Evaluation: 0:41 PM [facility] LOS: 14 days IMPRESSION AND [...] In process LABS Labs-ABGs Labs-CBC @CBCBRIEFROUNDS@ Labs-Chem 7([facility]) Bun/Creat/Cl/CO2/Glucose: 18/0.90/103/30/103 (02/01 514) Na/K+/Phos/Mg/Ca: 134/4.2/--/--/8.9 (02/01 [...] strength, normal tone Skin: Warm and dry * Kristyn Sutton PTA - 02/02/2024 2:45 PM EDT 02/02/24 1445 Time In/Out Time In 1445 PT Therapy Completed Attempted Attempted Reason Patient declined session (Pt reports having pain and waiting for pain pill and is refusing to participate.) Initial Evaluation/Screen Completed? yes * ROBER Alvarado - 02/02/2024 11:46 AM EDT 02/02/24 1005 Occupational Therapy Minutes Start Time [...] met. Continue OT per POC ROBER Alvarado * Janet Moreno MD - 02/02/2024 6:15 AM EDT Infectious Disease progress note SUBJECTIVE History of [...] drainage from her hip. Patient denies any specificareas pain in her hip joint. There is [...] states she is trying. Still using protein shakesand patient's family is bringing in food. Patient states that otherwise her hip is feeling good andthat she is ambulating better. No drainage reported. [...] history of left total knee arthroplasty. History ofright total hip arthroplasty. Left total hip arthroplasty [...] of lip dryness -Improving Janet Moreno MD * Mohan Gomez MD - 02/01/2024 9:41 PM EDT DAILY PROGRESS NOTE Admit Date: 01/19/2024 Date of Evaluation: 49:41 PM [facility] LOS: 13 days IMPRESSION AND [...] Surgical Final Report Patient Name: CUATE GOODMAN [facility]. Rec. #: [id number] Physician: ERIK HEREDIA Specimen(s) Received Left femoral [...] articular cartilage degeneration. Sectioning reveals unremarkable bone. Egg Pasteurizer sections are submitted in one cassette and placed in decalcification solution prior to processing. Billing Fee Code(s) A: 49724, 01012 WBC (WHITE BLOOD COUNT) 01/12/2024 10.5 3.6 [...] and . LABS Labs-ABGs Labs-CBC @CBCBRIEFROUNDS@ Labs-Chem 7([facility]) Bun/Creat/Cl/CO2/Glucose: 14/0.90/103/28/98 (01/31 434) Na/K+/Phos/Mg/Ca: 133/4.4/--/--/8.9 (01/31 [...] strength, normal tone Skin: Warm and dry * Kristyn Sutton PTA - 02/01/2024 3:03 PM EDT 02/01/24 1439 Physical Therapy Minutes Start Time [...] in recliner with chair alarm on, call l ight and tray table in reach. * ROBER Alvarado - 02/01/2024 12:08 PM EDT 02/01/24 0930 Occupational Therapy Minutes Start Time 0840 Stop Time 0930 Time Calculation 50 OT Individual Minutes 50 minutes General Pain Documentation (Adult, OB, Peds) Presence of Pain denies pain/discomfort Presence of Pain Score (Auto-calculated) 0 Select Pain Scale DVPRS (Defense and Veterans Pain Rating Scale) (Adult- Cognitively Intact) Shower/Bathe Self Assistance Needed Physical assistance [...] alarm flashing green and all needs met. SUPERVISOR ELECTRIC MOTOR TESTING made aware pt needs assistance with donning underwear and re-wrapping legs. Continue OT per POC ROBER Alvarado * Kristyn Sutton PTA - 02/01/2024 11:25 AM EDT 02/01/24 1052 Physical Therapy Minutes Start Time 1052 Stop Time 1125 Time Calculation 33 PT Individual Minutes 33 minutes General Pain Documentation (Adult, OB, Peds) Presence of Pain reports pain/discomfort Pain Location leg, left Select Pain Scale DVPRS (Defense and Veterans Pain Rating Scale) (Adult- Cognitively Intact) DVPRS (Defense and Veterans Pain Rating [...] wheeled walker;other (see comment) (Pt used leg senior sales operations analyst for car transfers.) Gait Assessment Gait Comments [...] Assistance Level No physical assistance Comment using construction technology instructor pt picked up 4 items off the floor while standing with FWW. CARE Score - Picking Up Object 4 PT Barriers and Justification Impairments in Body Structure/Function pain;strength * Janet Moreno MD - 02/01/2024 7:32 AM EDT Infectious Disease progress note SUBJECTIVE History of [...] drainage from her hip. Patient denies any specificareas pain in her hip joint. There is [...] Mohan Gomez MD, 100 mg at 02/01/24 09 ferrous sulfate tablet 325 mg, 325 mg, [...] history of left total knee arthroplasty. History ofright total hip arthroplasty. Left total hip arthroplasty [...] of lip dryness -Improving Janet Moreno MD * Mohan Gomez MD - 01/31/2024 6:00 PM EDT DAILY PROGRESS NOTE Admit Date: 01/19/2024 Date of Evaluation: 2:14 AM [facility] LOS: 13 days IMPRESSION AND [...] Patient Name: CUATE GOODMAN Med. Rec. #: [id number] Physician: ERIK HEREDIA Specimen(s) Received Left femoral [...] articular cartilage degeneration. Sectioning reveals unremarkable bone. Egg Pasteurizer sections are submitted in one cassette and placed in decalcification solution prior to processing. Billing Fee Code(s) A: 98615, 82514 WBC (WHITE BLOOD COUNT) 01/12/2024 10.5 3.6 [...] and . LABS Labs-ABGs Labs-CBC @CBCBRIEFROUNDS@ Labs-Chem 7([facility]) Bun/Creat/Cl/CO2/Glucose: 06/18.10/102/33/94 (01/31 612) Na/K+/Phos/Mg/Ca: 134/4.5/--/--/8.7 (01/31 [...] strength, normal tone Skin: Warm and dry * Marianna Lawson OT - 01/31/2024 5:01 PM EDT 01/31/24 1607 Time In/Out Time In 1607 [...] and treatment transferred to JANN Welch/Karin at [facility]. JANN Travis/Karin 01/31/2024 * Kristyn Sutton PTA - 01/31/2024 2:46 PM EDT 01/31/24 1415 Physical Therapy Minutes Start Time [...] call light, and tray table in reach. * Sheila Bui PRAKASH - 01/31/2024 12:32 PM EDT 01/31/24 0909 Occupational Therapy Minutes Start Time 908 Stop Time 0942 Time Calculation 33 Oral [...] and other ADL tasks. DEVIN Sullivan 01/31/2024 * Kristyn Sutton PTA - 01/31/2024 11:00 AM EDT 01/31/24 1036 Physical Therapy Minutes Start Time [...] get into standing. Pt completed sit<>stand x 3this session. CARE Score - Sit to Stand 4 Gait Assessment Distance Walked 40' and 60' Gait Equipment two-wheeled walker Deviations antalgic Gait Comments Pt ambulated 40'and 60' using FWW CGA TTWB LLE with chair follow d/t fatigue quickly.Pt demonstrated improve roro and sequencing. Walk 10 Feet Assistance Needed Adaptive equipment;Incidental touching Physical Assistance Level No physical assistance CARE Score - Walk 10 Feet 4 Pt requires several rest breaks during treatment and discussed plan for PM treatment. * Janet Moreno MD - 01/31/2024 7:39 AM EDT Infectious Disease progress note SUBJECTIVE History of Present Illness: Cuate Goodman 83 y.o. female with a history of left degenerative hip disease with ongoing left hip pain with reported decreased quality of life due to this condition. The patient was seen by Orthopedics and Dr. Heredai performed surgery 01/10 with a left total [...] drainage from her hip. Patient denies any specificareas pain in her hip joint. There is [...] Mohan Gomez MD, 5 mg at 01/30/24 1137 Allergies Allergen Reactions Morphine Nausea and Vomiting [...] history of left total knee arthroplasty. History ofright total hip arthroplasty. Left total hip arthroplasty [...] hydration, Off of abx Janet Moreno MD * Mohan Gomez MD - 01/30/2024 6:41 PM EDT DAILY PROGRESS NOTE Admit Date: 01/19/2024 Date of Evaluation: 46:41 PM [facility] LOS: 11 days IMPRESSION AND [...] Surgical Final Report Patient Name: CUATE GOODMAN [facility]. Rec. #: [id number] Physician: ERIK HEREDIA Specimen(s) Received Left femoral head Clinical / Pre-Operative Diagnosis Osteoarthritis of left hip unspecified osteoarthritis type Post-Operative Diagnosis Not provided Surgical Procedure Arthroplasty hip total latera approach Diagnosis: Left femoral head, Excision: -Consistent with degenerative joint disease Electronically Signed lks/01/13/2024 Koha Vieyra DO Gross Description: The specimen is received in formalin, and labeled left femoral head, Cuate Goodman and date of 1940. The specimen consists of a femoral head and neck measuring 5.5 x 5 x 5 cm with articular cartilage degeneration. Sectioning reveals unremarkable bone. Egg Pasteurizer sections are submitted in one cassette and placed in decalcification solution prior to processing. Billing Fee Code(s) A: 03369, 22465 WBC (WHITE BLOOD COUNT) 01/12/2024 10.5 3.6 [...] and . LABS Labs-ABGs Labs-CBC @CBCBRIEFROUNDS@ Labs-Chem 7([facility]) Bun/Creat/Cl/CO2/Glucose: 10/1.00/101/31/93 (01/29 415) Na/K+/Phos/Mg/Ca: 135/4.4/--/--/8.6 (01/29 415) Labs-Coags [...] strength, normal tone Skin: Warm and dry * DEVIN Zhang - 01/30/2024 11:22 AM EDT 01/30/24 1033 Occupational Therapy Minutes Start Time [...] pt not feeling well. RiyaDEVIN [place] 01/30/2024 * Christ Dobbs PTA - 01/30/2024 11:21 AM EDT 01/30/24 09 Physical Therapy Minutes Start Time 930 Stop Time 930 Time Calculation 0 PT Individual Minutes 0 minutes Missed Therapy Minutes Reason Patient refused Pt denied PT this date secondary to feeling sick . Pt educated on benefits of PT. Pt further denied. Morena Mon PT, DPT was notified of pt refusal. PT attempted treatment at 1040 am. Pt furtherdenied per Morena Mon PT, DPT. No further action taken at this time. * Janet Moreno MD - 01/30/2024 7:12 AM EDT Infectious Disease progress note SUBJECTIVE History of [...] drainage from her hip. Patient denies any specificareas pain in her hip joint. There is [...] poor appetite yesterday and did not eat dinnerbut had eaten other meals. Denied any diarrhea. [...] Mohan Gomez MD, 2 capsule at 01/30/24 0855 senna-docusate (SENOKOT-S) 8.6-50 MG per tablet 2 [...] history of left total knee arthroplasty. History ofright total hip arthroplasty. Left total hip arthroplasty [...] 1.00 01/30/2024 GLUCOSE 93 01/30/2024 Micro C [facility]07-17-2024 History of Present illness Narrative* Alhaji Dickinson, PSYCHIATRIC - 02/02/2024 11:30 AM EDT Ortho Nurse - Established Patient Intake Room#: Cast room Patient is an 83 year old female who arrives in a wheel chair for her 3 week follow up after LHTA-AL on 01/11/24. She states she is not in any pain today and states her pain is controlled well. She isusing [place]uma codone acetaminophen for pain relief as well as Tylenol prn. Her leg is wrapped insteadof JOSAFAT hose and she is using Eliquis for DVT preventation. She is following touch down weight bearing protocol. Date: 02/02/2024 11:34 AM Patient: Cuate Goodman MR#: [id number] : 1940 Age: 83 y.o. Referring Physician: [...] tablet Oral Q4H PRN Mohan Gomez MD 1tablet at 02/01/24 1016 hydroCODone-acetaminophen (NORCO) 5-325 MG per tablet 2 tablet 2 tablet Oral Q4H PRN Mohan Gomez MD 2tablet at 02/01/24 2306 lactulose (CHRONULAC) oral solution [...] mouth every 6 hours as needed for upto 7 days. Do not take over 4000mg [...] 650 mg, 650 mg, Oral, Q4H PRN, MD Sheldon, 650 mg at 02/02/24 0935 [SEP Hold [...] 02/02/24 0836 [SEP Hold - Suspended Admission] Docusate (COLACE) capsule 100 [...] g, Oral, TID PRN, Mohan Gomez MD [[facility] Hold - Suspended Admission] Lisinopril (PRINIVIL) tablet 5 mg, 5 mg, Oral, Daily, Mohan Gomez MD, 5 mg at 02/02/24 0835 [[facility] - Suspended Admission] multivitamin tablet 1 tablet, 1 tablet, Oral, Daily, Mohan Gomez MD,1 tablet at 02/02/24 0835 [Sep - Suspended Admission] Nystatin (MYCOSTATIN) oral suspension 500,000 Units, 500,000 Units, Swish & Swallow, 4x daily, Janet Moreno MD, 500,000 Units at 02/02/24 0835 [[facility] Hold - Suspended Admission] Ondansetron [...] Mohan Gomez MD, 17 g at 01/30/242043 [[facility] Hold - Suspended Admission] Polyethylene glycol (MIRALAX) [...] is allergic to morphine, oxycodone, and penicillins. * Paige Damon - 02/02/2024 11:30 AM EDT Images from the original note were not included. Cuate Goodman is 3 weeks s/p left Anterolateral total hip arthroplasty with introp cable and plate fixation to troch fracture. She feels she is progressing better in her recovery. She is TDWB with global restrictions. She reports 0 out of 10 pain today. She is using Tylenol and Grace for pain control and Eliquis for DVT prophylaxis along with JOSAFAT hose. She reports she is anxious to get home. Of note, Dr. Moreno was consulted upon arrival to [facility] due to concerns for SSI with [...] arise. All pertinant portions of the clinical wind farm support specialist documentation was reviewed. Paige Damon I have reviewed the findings of the clinical wind farm support specialist and agree with their assessment. 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 She states she is not in any pain today and states her pain is controlled well. She isusing Yuma codone acetaminophen for pain relief as well as Tylenol prn. Her leg is wrapped insteadof JOSAFAT hose and she is using Eliquis for DVT preventation. She is following touch down weight bearing protocol. Date: 02/02/2024 11:34 AM Patient: Cuate Goodman MR#: [id number] : 1940 Age: 83 y.o. Referring Physician: [...] Mohan Gomez MD 5 mg at 02/02/24 08 Docusate (COLACE) capsule 100 mg 100 mg Oral Q12H Mohan Gomez MD 100 mg at 02/02/24 08 ferrous sulfate tablet 325 mg 325 mg Oral Daily Mohan Gomez MD 325 mg at 02/02/24 0836 hydroCODone-acetaminophen (NORCO) 5-325 MG per tablet 1 tablet 1 tablet Oral Q4H PRN Mohan Gomez MD 1tablet at 02/01/24 1016 hydroCODone-acetaminophen (NORCO) 5-325 MG per tablet 2 tablet 2 tablet Oral Q4H PRN Mohan Gomez MD 2tablet at 02/01/246 lactulose (CHRONULAC) oral solution 20 g 20 [...] mouth every 6 hours as needed for upto 7 days. Do not take over 4000mg [...] 650 mg, 650 mg, Oral, Q4H PRN, MD Sheldon, 650 mg at 02/02/24 09 [Sep - Suspended Admission] Allopurinol (ZYLOPRIM) tablet [...] Gomez MD, 5 mg at 02/02/24 0835 [[facility] - Suspended Admission] multivitamin tablet 1 tablet, 1 tablet, Oral, Daily, Mohan Gomez MD,1 tablet at 02/02/24 0835 [Sep - Suspended Admission] Nystatin (MYCOSTATIN) oral suspension 500,000 Units, 500,000 Units, Swish & Swallow, 4x daily, Janet Moreno MD, 500,000 Units at 02/02/24 0835 [Sep - Suspended Admission] Ondansetron (ZOFRAN) tablet 4 mg, 4 mg, Oral, Q4H PRN, Mohan Gomez MD, 4 mg at 02/02/24 0840 [[facility] - Suspended Admission] Pantoprazole (PROTONIX) tablet DR 40 mg, 40 mg, Oral, Daily, Mohan Gomez MD, 40 mg at 02/02/24 0836 [[facility] - Suspended Admission] Polyethylene glycol (MIRALAX) packet 17 g, 17 g, Oral, Q12H, Mohan Gomez MD, 17 g at 01/30/24 2044 [[facility] Hold - Suspended Admission] Polyethylene glycol (MIRALAX) packet 17 g, 17 g, Oral, TID PRN, Mohan Gomez MD [[facility] - Suspended Admission] senna-docusate (SENOKOT-S) 8.6-50 MG [...] morphine, oxycodone, and penicillins. documented in this [facility]07-05-2024 Consult note* Janet Moreno MD - 01/21/2024 1:19 PM EDTAssociated Order(s): IP CONSULT TO INFECTIOUS DISEASE Infectious Disease Consultation Note Consultation Requested by: Dr Gomez Reason for Consult: Erythema at left post hip arthroplastic surgery sites for evaluation of concernfor postoperative infection SUBJECTIVE History of Present Illness: [...] drainage from her hip. Patient denies any specificareas pain in her hip joint. There is [...] history of left total knee arthroplasty. History ofright total hip arthroplasty. Left total hip arthroplasty with incision with surrounding erythema approximately 1 cm on each sideof incision that in circles. Mild warmth. No [...] process. Janet Moreno MD documented in this [facility]07-05-2024 Consult note* Janet Moreno MD - 01/21/2024 1:19 PM EDTAssociated Order(s): IP CONSULT TO INFECTIOUS DISEASE Infectious Disease Consultation Note Consultation Requested by: Dr Gomez Reason for Consult: Erythema at left post hip arthroplastic surgery sites for evaluation of concernfor postoperative infection SUBJECTIVE History of Present Illness: [...] drainage from her hip. Patient denies any specificareas pain in her hip joint. There is [...] history of left total knee arthroplasty. History ofright total hip arthroplasty. Left total hip arthroplasty with incision with surrounding erythema approximately 1 cm on each sideof incision that in circles. Mild warmth. No [...] 0.60 (L) 01/21/2024 GLUCOSE 100 01/21/2024 Micro 7/ Nares - 12/16/2023 positive nares test for [...] process. Janet Moreno MD documented in this [facility]07-03-2024 History and physical note* Mohan Gomez MD - 01/19/2024 8:00 PM EDT I saw Cuate Goodman at [facility] Assessment/Plan: 83 y.o. female with [...] hip arthroplasty. She has severe left hip painand elected for surgery. She did well postoperatively. [...] Position: Sitting) Comment (BP Location): left forearm Pulse78 Temp 98.9 F (37.2 C) (Oral) Resp [...] 01/17/2024 CREATSERUM 0.70 01/13/2024 documented in this [facility]07-03-2024 History and physical note* Mohan Gomez MD - 01/19/2024 8:00 PM EDT I saw Cuate Goodman at [facility] Assessment/Plan: 83 y.o. female with [...] hip arthroplasty. She has severe left hip painand elected for surgery. She did well postoperatively. [...] Position: Sitting) Comment (BP Location): left forearm Pulse78 Temp 98.9 F (37.2 C) (Oral) Resp [...] 01/17/2024 CREATSERUM 0.70 01/13/2024 documented in this [facility]07-03-2024 Nurse Note* Nursing Notes - Irene Alejandro LPN - 01/19/2024 1:48 PM EDT AVS given by ALLY, all questions addressed and pt stated understanding. Assessment unchanged and no complaints. Patient taken to swing bed by [facility]. Per request of swing bed IV in rightwrist left in flushed and locked with alcohol cap. Paperwork sent with transport and report given. [facility]07-03-2024 Miscellaneous Notes* Nursing Notes - Irene Alejandro LPN - 01/19/2024 1:48 PM EDT AVS given by WEDDING MAKEUP ARTIST, all questions addressed and pt stated understanding. Assessment unchanged and no complaints. Patient taken to swing bed by [facility]. Per request of swing bed IV in rightwrist left in flushed and locked with alcohol cap. Paperwork sent with transport and report given. * Nursing Notes - Irene Alejandro LPN - 01/19/2024 1:23 PM EDT Per patients request called and let contact Sonal daughter know her mother is transferring to swingbed. * Nursing Notes - Irene Alejandro LPN - 01/19/2024 1:10 PM EDT Called report to Nisha HERNANDEZ at [facility]. Transport set up. * Plan of Care - Ada Arteaga RN - 01/19/2024 12:48 PM EDT Problem: Adult Inpatient Plan of Care Goal: [...] Health and Integrity Outcome: Adequate for Discharge * Nursing Notes - Irene Alejandro LPN - 01/19/2024 12:15 PM EDT No change noted from previous assessment by this WEDDING MAKEUP ARTIST unless otherwise detailed in coordinating flowsheets. Patient denies any needs at this time. Call light in reach. * Nursing Notes - Arline Baron RN - 01/19/2024 12:07 PM EDT Talisha Damon CNP updated that patient can be discharged to Swing Bed today. * Nursing Notes - Arline Baron RN - 01/19/2024 12:[address] Monte updated that auth came through and pt can be discharged to Swing bed today, No new orders at this time. * Nursing Notes - Ольга Morales RN - 01/19/2024 3:51 AM EDT Patient resting in bed. Assessment remains unchanged from previous. Call light is within reach. * Nursing Notes - Ольга Morales RN - 01/19/2024 12:33 AM EDT Pt resting in the chair. Assessment remains unchanged from previous. Pt's SPO2 is 84% on room air, so patient is put on 2L nasal cannula and SPO2 is now 90%. Call light is within reach. * Nursing Notes - Ольга Morales RN - 01/19/2024 12:33 AM EDT DEYSI dressing is no longer flashing, contract writer removes it per ortho note. Incision is CDI. Ice pack applied. * Nursing Notes - Amairani Lim RN - 01/18/2024 4:14 PM EDT Remains up in recliner. No change noted from previous assessment by this RN unless otherwise detailed in coordinating flow sheets. PRN ultram given per order for c/o left hip and torso pain. States her dinner order was called in by SUPERVISOR ELECTRIC MOTOR TESTING. Denies additional needs at this time, call light in reach, recliner wheels locked. * Plan of Care - Amairani Lim RN - 01/18/2024 3:06 PM EDT Problem: Adult Inpatient Plan of Care Goal: Plan of Care Review Outcome: Progressing Goal: Patient-Specific Goal (Individualized) Outcome: Progressing Goal: Absence of Hospital-Acquired Illness or Injury Outcome: Progressing Goal: Optimal Comfort and Wellbeing Outcome: Progressing Goal: Readiness for Transition of Care Outcome: Progressing Problem: Skin Injury Risk Increased Goal: Skin Health and Integrity Outcome: Progressing * Nursing Notes - Amairani Lmi RN - 01/18/2024 12:20 PM EDT Remains up in recliner. No change noted from previous assessment by this RN unless otherwise detailed in coordinating flow sheets. Denies additional needs at this time, call light in reach, recliner wheels locked. * Nursing Notes - Amairani Lim RN - 01/18/2024 7:10 AM EDT Laying in recliner upon this RN arrival to patient room, resting quietly with eyes closed, respirations even and unlabored. Arouses easily to voice, appropriate to conversation. Shift assessment initiated, detailed in coordinating flow sheets. Denies additional needs at this time, call light in reach, recliner wheels locked. * Plan of Care - Fernanda Cantor RN - 01/18/2024 4:33 AM EDT Problem: Adult Inpatient Plan of Care Goal: Plan of Care Review Outcome: Progressing Goal: Patient-Specific Goal (Individualized) Outcome: Progressing Goal: Absence of Hospital-Acquired Illness or Injury Outcome: Progressing Goal: Optimal Comfort and Wellbeing Outcome: Progressing Goal: Readiness for Transition of Care Outcome: Progressing Problem: Skin Injury Risk Increased Goal: Skin Health and Integrity Outcome: Progressing * Nursing Notes - Fernanda Cantor RN - 01/18/2024 12:40 AM EDT Patient's assessment remains unchanged from previous assessment this shift, any exceptions noted inflowsheets. Patient resting comfortably in chair, declines any needs at this time. Call light within reach,chair alarm active * Nursing Notes - Arely Hdez RN - 01/17/2024 5:19 PM EDT The top of the right foot is no longer red. Cuate has brisk cap refill on both lower extremities. An avril wrap was applied to Cuate right lower extremity from the toes to her knee. She is currently denying pain. She is watching TV and is pleasant. She is still awaiting insurance approval for the Swing Unit in [place]. Call haddad in hand. * Nursing Notes - Merry Goodwin RN - 01/17/2024 4:30 PM EDT Assessment is complete and remains unchanged from previous at this time with any exceptions noted in the flowsheet. Patient denies further needs and is left with call light and personals in reach. * Nursing Notes - Merry Goodwin RN - 01/17/2024 12:00 PM EDT Assessment is complete and remains unchanged from previous at this time with any exceptions noted in the flowsheet. Patient denies further needs and is left with call light and personals in reach. * Nursing Notes - Angelita Pepe RN - 01/17/2024 4:19 AM EDT Resting in chair. Assessment unchanged from earlier. Call light in reach. * Nursing Notes - Angelita Pepe RN - 01/16/2024 11:58 PM EDT Patient remains resting in recliner chair beside of bed. Voices no needs. Was medicated earlier forpain. Assessment unchanged from previous. Ice maintained to left hip. Call light in reach. * Plan of Care - Elysia Green RN - 01/16/2024 4:37 PM EDT Problem: Skin Injury Risk Increased Goal: Skin [...] rest periods promoted Nutrition Interventions: diet adjusted * Nursing Notes - Elysia Green RN - 01/16/2024 4:36 PM EDT Afternoon assessment completed. No changes noted. Patient resting with no complaints. Call light and phone within reach. * Nursing Notes - Elysia Green RN - 01/16/2024 12:26 PM EDT No change noted from previous assessment by this RN unless otherwise detailed in coordinating flow sheets. Patient denies any needs at this time. * Nursing Notes - Reynaldo Cool RN - 01/16/2024 12:50 AM EDT Assessment unchanged from prior unless otherwise charted. Patient resting in bed, call light withinreach, Up In Chair, Patient denies any current needs at this time. * Plan of Care - Elysia Green RN - 01/15/2024 4:43 PM EDT Problem: Skin Injury Risk Increased Goal: Skin [...] rest periods promoted Nutrition Interventions: diet adjusted * Nursing Notes - Elysia Green RN - 01/15/2024 4:16 PM EDT Afternoon assessment completed. No changes noted. Patient resting in the chair with no complaints. Call light and phone within reach. * Nursing Notes - Elysia Green RN - 01/15/2024 12:02 PM EDT No change noted from previous assessment by this RN unless otherwise detailed in coordinating flow sheets. Patient denies any needs at this time. * Nursing Notes - Shellie Betancourt RN - 01/15/2024 5:09 AM EDT Pt assessment remains unchanged with any exceptions noted in flowsheets. Pt is resting in the recliner chair, respirations even and unlabored. Fresh ice pack applied to left hip. DEYSI dressing intactand flashing green. Pt c/o 7/10 pain to left hip with spasms. Tramadol given - see MAR. Pt denies any further needs at this time. Call light within reach. * Nursing Notes - Shellie Betancourt RN - 01/15/2024 1:25 AM EDT Pt assessment remains unchanged with any exceptions noted in flowsheets. Pt appears to be sleeping,respirations even and unlabored. Call light within reach. * Nursing Notes - Shellie Betancourt RN - 01/14/2024 10:03 PM EDT Pt assessment complete and documented in flowsheets. POC reviewed with pt. Pt is alert, respirations even and unlabored. No acute distress observed. Fresh ice pack applied to left hip. DEYSI dressing intact and flashing green. Pt c/o 8/10 pain to left hip. Tramadol given - see MAR. Pt denies any further needs at this time. Call light within reach. * Plan of Care - Elysia Green RN - 01/14/2024 4:30 PM EDT Problem: Skin Injury Risk Increased Goal: Skin [...] rest periods promoted Nutrition Interventions: diet adjusted * Nursing Notes - Elysia Green RN - 01/14/2024 4:29 PM EDT Afternoon assessment completed. No changes noted. Patient resting with no complaints. Call light and phone within reach. * Nursing Notes - Elysia Green RN - 01/14/2024 12:00 PM EDT No change noted from previous assessment by this RN unless otherwise detailed in coordinating flow sheets. Patient denies any needs at this time. * Nursing Notes - Ольга Morales RN - 01/14/2024 3:46 AM EDT Pt resting in chair. Assessment remains unchanged from previous. Call light is within reach, SCDs are on. * Nursing Notes - Ольга Morales RN - 01/14/2024 12:07 AM EDT Pt resting in bed. Assessment remains unchanged from previous. Director Of Music redresses avril wraps to BLE. Call light is within reach and bed alarm is on. * Nursing Notes - Katlyn Zimmer RN - 01/13/2024 5:26 PM EDT Updates given to daughter Sonal. She denies any questions or concerns. * Nursing Notes - Katlyn Zimmer RN - 01/13/2024 3:56 PM EDT No changes noted from previous assessment by this RN except what is detailed in coordinating flow sheets. Patient denies needs at this time. Call light is in reach. * Nursing Notes - Katlyn Zimmer RN - 01/13/2024 11:05 AM EDT Patient denies any pain at this time. Patient denies need for pain medication and states she will call whenever she needs them. Med ULLOA at bedside. No changes noted from previous assessment by thisRN except what is detailed in coordinating flow sheets. Patient denies needs at this time. Call light is in reach. * Nursing Notes - Katlyn Zimmer RN - 01/13/2024 8:43 AM EDT Voicemail left for Dr. Monte regarding updates of patient's test per request. EKG showed sinus rhythm with premature atrial complexes and right bundle branch block. Troponin resulting at 10. Patient denies any chest pain/pressure at this time. Patient states I think it was indigestion, I get that alot . Patient denies needs at this time. Call light is in reach. * Nursing Notes - Ольга Morales RN - 01/13/2024 6:53 AM EDT Director Of Music reviews charting by Madeleine CANALES, contract writer agrees with charting. * Nursing Notes - Madeleine Guardado LPN - 01/13/2024 6:35 AM EDT Patient complains of chest pain she describes it as pressure that is moving left. She states it feels like how it fells when I get indigestion . Dr. Monte notified. New orders received. * Nursing Notes - Madeleine Guardado LPN - 01/13/2024 4:56 AM EDT Reassessment complete at this time and remains unchanged from previous. Patient states I slept really well last night. I think the Tramadol helped a lot. Patient rates pain 5/10 and 8/10 with spasms, movement. Patient DEYSI flashing green. Patient denies further needs and is left with call light and personals within reach. * Nursing Notes - Madeleine Guardado LPN - 01/13/2024 1:00 AM EDT Reassessment complete at this time. Patient states Pain is much better. Patient denies any further needs and is left with call light and personals within reach. * Nursing Notes - Madeleine Guardado LPN - 01/12/2024 8:06 PM EDT Assessment complete at this time with any exceptions noted in the flowsheets. Patient was snoring upon this nurse entering the room. Patient did not awaken to verbal stimulation. This nurse touched patients arm in an attempt to awaken her. Patient was still snoring. This nurse rubbed patient and she startled awake. Patient asked for Grace and was told she was not due for two more hours. Patient agreeable to wait. Patient denies further needs and is left with call light and personals within reach. * Nursing Notes - Katlyn Zimmer RN - 01/12/2024 4:40 PM EDT Patient son's Mat at bedside at this time. This RN questioned if the patient would like PRN pain medication, patient states I'll call you when I want them . Denies needs at this time, call light within reach. * Nursing Notes - Katlyn Zimmer RN - 01/12/2024 4:15 PM EDT No changes noted from previous assessment by this RN except what is detailed in coordinating flow sheets. Patient denies needs at this time. Call light is in reach. * Nursing Notes - Katlyn Zimmer RN - 01/12/2024 2:30 PM EDT Bilaterally AVRIL wrap applied to lower legs with MARY Mcgee at this time per Randell AVILA. * Nursing Notes - Katlyn Zimmer RN - 01/12/2024 12:05 PM EDT No changes noted from previous assessment by this RN except what is detailed in coordinating flow sheets. Patient denies needs at this time. Call light is in reach. * Nursing Notes - Arely Hdez RN - 01/12/2024 8:[address] Mackey RESEARCH FELLOW rounding. He discussed the quality of her bone from in the OR and the slight intraoperative fracture and the strict precautions including global and TDWB resulting ti the need for a SNF on discharge. Cuate extremely addiment I am not going to a group home. I'm going home . Ave explained after PT/OT evaluation today we might to had an additional conversation. Cuate looks to be upset over this visit at this time. The plan for nursing will be to now allow PT/OT to evaluate and clear explain options on discharge. * Nursing Notes - Shellie Betancourt RN - 01/12/2024 3:23 AM EDT Pt assessment remains unchanged with any exceptions noted in flowsheets. Pt is resting in bed, respirations even and unlabored. Fresh ice pack applied to left hip. DEYSI dressing intact and flashing green. Pt c/o 10/10 pain to left hip. Grace given - see MAR. Pt denies any further needs at this time. Call light within reach. * Nursing Notes - Shellie Betancourt RN - 01/11/2024 11:27 PM EDT Pt assessment remains unchanged with any exceptions noted in flowsheets. Pt is resting in bed, respirations even and unlabored. Fresh ice pack applied to left hip. DEYSI dressing intact and flashing green. Pt c/o 8/10 pain to left hip, Grace given - see MAR. Pt denies any further needs at this time.Call light within reach. * Nursing Notes - Shellie Betancourt RN - 01/11/2024 8:45 PM EDT Pt assessment complete and documented in flowsheets. [...] at this time. Call light within reach. * Therapy Note - Germania Jackson RRT - 01/11/2024 8:02 PM EDT Pt nauseated at this time IS not done RN aware and will give medication for nausea and then instruct pt. * Nursing Notes - Chaparrita Heart RN - 01/11/2024 6:31 PM EDT Patient returned to floor via cart with PACU nurse. Patient reporting 10/10 pain to her left hip, left shoulder, and right knee. Requesting to be repositioned and for abductor pillow to be removed. Ieducated patient and family of the purpose of [...] liquid menu with patient. Patient requested lemon samish soda. Soda given. Encouraged patient to try and rest. Family at the bedside. Safety education gi nena. Call light within reach. Bed alarm set. * Nursing Notes - Nely Galenao RN - 01/11/2024 5:59 PM EDT Abductor pillow in place. Ice pack to Left hip * Brief Op Note - RENE Monique - 01/11/2024 5:48 PM EDT POST OPERATIVE/PROCEDURE NOTE Cuate Goodman 83 y.o. female [id number] SURGEON Surgeons and Role: * Erik Heredia MD - Primary AUTOMATIC TRIMMING SEWER RENE Monique ANESTHESIOLOGIST CAFETERIA OR LUNCHROOM CHECKER: JEFFREY Denny SURGICAL STAFF Professor Of Nursing: Shantell Flood, RN; Rebecca Baltazar, RN; Magdalene Gilbert, MARY Nurse Practitioner: RENE Monique Chip Washer: Delores German Scrub Person: SALLY Kilgore; Zari [...] Implant Name Type Inv. Item Serial No. Vp Digital Marketing Social Media And Crm Lot No. LRB No. Used Action [place] Gription Acetabular Shell Sector 52mm OD [employer] [id number] Left 1 Implanted [place] ALTRX Polyethylene Acetabular Liner Neutral 36mm ID 52mm OD [employer] [id number] 1 Implanted Cementralizer Stem Centralizer 10.5mm Cemented [employer] [id number] Left 1 Implanted [place] Femoral Stem 12/14 Taper Cemented Size 5 STD 120mm [employer] [id number] Left 1 Implanted [place] LV 1x40 [id number] Left 1 Implanted [place] LV 1x40 [id number] Left 1 Implanted [place] R 1x40 [id number] Left 1 Implanted Biolox Delta Ceramic Femoral Head +1.5 36mm MERLYN 12/14 Taper [employer] [id number] Left 1 Implanted Suture [place], BioComposite Corkscrew FT,Vented with 1.3mm White/blue and white/black suture tape ARTHREX [id number] Left 1 Implanted Ti Trochanteric Reattachment Device w/Cables/Standard-Ster [employer] [id number] Left 1 Implanted SPECIMENS ID Type Source Tests Collected by Time Destination 1 : Left Femoral head Permanent TISSUE SURGICAL PATHOLOGY REQUEST Erik eHredia MD 01/11/[address] APRN-MARGARITA January 11, 2024 5:48 PM * Nursing Notes - Alhaji Deleon LPN - 12/16/2023 2:42 PM EDT 12/16/23 8913 Information Source Information Source patient Contact Information School Traffic Supervisor Name Chelsea Menezes RN Living Environment Lives [...] Employment/Financial Employed? 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 Patient states that return home with family assist. Patient has wheeled walker. Patient denies any other questions or needs at this time. CM to continue to follow and assist with discharge plans. [facility]* Nursing Notes - Irene Alejandro LPN - 01/19/2024 1:23 PM EDT Per patients request called and let contact Sonal daughter know her mother is transferring [facility] swingbed. [facility] Nurse Note* Nursing Notes - Irene Alejandro LPN - 01/19/2024 1:10 PM EDT Called report to Nisha HERNANDEZ at swing bed. Transport set up. [facility] Plan of care note* Plan of Care - Ada Arteaga RN - 01/19/2024 12:48 PM EDT Problem: Adult Inpatient Plan of Care Goal: [...] Health and Integrity Outcome: Adequate for Discharge [facility] Nurse Note* Nursing Notes - Irene Alejandro LPN - 01/19/2024 12:15 PM EDT No change noted from previous assessment by this WEDDING MAKEUP ARTIST unless otherwise detailed in coordinating flowsheets. Patient denies any needs at this time. Call light in reach. [facility] Hospital course Narrative* Luis Monte MD - 01/19/2024 12:11 PM EDT Images from the original note were not [...] Preop EKG at baseline. Known diastolic dysfunction. Tobacco Weigher did clear her for surgery. She had [...] or metallic taste, dysphagia, nausea, vomiting, hematemesis, melena,or black/tarry stools. Known urinary incontinence. Doing well [...] Surgical Final Report Patient Name: CUATE GOODMAN [facility]. Rec. #: [id number] Physician: ERIK HEREDIA Specimen(s) Received Left femoral [...] articular cartilage degeneration. Sectioning reveals unremarkable bone. Egg Pasteurizer sections are submitted in one cassette and placed in decalcification solution prior to processing. Billing Fee Code(s) A: 28837, 32774 HEENT: NC/AT, PERRLA, EOMI, fundi benign, external [...] 5 days. Then resume 5mg dose per pre- op routine What changed: You were already taking [...] about: Should I take this medication? Follow-up: [facility] Swing Bed [address] [facility] [address] Follow up Swing Bed Upcoming Appointments (up to five)-Some appointments for Medical Center outpatient clinics or diagnostic testing locations are not displayed below Provider Department Dept Phone 02/02/2024 11:30 AM Paige Damon [facility] [phone] documented in [facility] Nurse Note* Nursing Notes - Arline Baron RN - 01/19/2024 12:07 PM EDT Talisha Damon CNP updated that patient can be discharged to Swing Bed today. [facility] Nurse Note* Nursing Notes - Arline Baron RN - 01/19/2024 12:[address] Monte updated that auth came through and pt can be discharged to Swing bed today, No new orders at this time. [facility] History of Present illness Narrative* MATT Gillespie - 01/19/2024 11:47 AM EDT Patient approved for Swing bed, nurse updated * Med Cooper PTA - 01/18/2024 9:36 AM EDT 01/18/24 0820 Time In/Out Time In 0820 [...] on commode with use of grab bars. BALER OPERATOR assisted pt with removing breif and pts gown noted to be wet. SUPERVISOR ELECTRIC MOTOR TESTING called in and assisted pt with gown change. Pt able to void and then pt compelted STS to FWW, Christina x1 and pt able to provideself pericare with this BALER OPERATOR providing support with no major LOB noted. Pt then ambulated back into room for approx 10ft and pt states beginning to feel a little dizzy and asking to have bedside chairplaced behind pt and then pt transfered to sitting in bedside chair. This BALER OPERATOR supporting L LE whilereclining chair and then pt able to slide self back in chair with UEs. MaxA x2 for repositoining ptall the way to back of chair. Pt then completed B ankle pumps x10 reps and then additional exercises on R LE including QS, hip abd, heel slides, and SLRs x10-12 reps each. Pt remained sitting in bedside chair with LEs elevated, ice pack applied to L hip, SCDs in place, and pillow placed between ptsLEs to follow global hip precautions at end of therapy session. Transfer Skill: Sit To Stand, Rehab Eval [place] (Sit-Stand Transfers) minimum assist (75% patient effort) Physical Assist/Nonphysical Assist: Sit/Stand 1 person assist Weight-Bearing Restrictions: Sit/Stand toe touch weight-bearing Assistive Device For Transfer: Sit/Stand 2 wheeled walker Gait Skills, PT Eval Level of [place]: Gait minimum assist (75% patients effort) Physical Assist/Nonphysical Assist: Gait 1 person assist Weight-Bearing Restrictions: Gait toe touch weight-bearing Assistive Device For Transfer: Gait 2 wheeled walker Gait Distance (10ft x2) Gait Analysis, PT Eval Gait Pattern Used swing-to gait Stair Negotiation [place] Level: Stair Negotiation unable to assess Plan Plan for next visit Cont per POC Maintain frequency yes * Med Cooper PTA - 01/17/2024 4:54 PM EDT 01/17/24 1616 Time In/Out Time In 1616 [...] she feels that she may have pulled amuscle in her rib area on L side. [...] QS, heel slides, hip abd, and SLRs x10- 12 reps each. Nurse in at this time to adminster medication and this BALER OPERATOR assisted pt with placing ice pack on L hip, bracing L LE with blanket roll, and providing warm blankets at end of therapy session. Pt remained sitting up in bedside chair with call light left within reach. Plan Plan for next visit Cont per POC Maintain frequency yes * Alhaji Deleon LPN - 01/17/2024 2:11 PM EDT Spoke with family, Sonal about the pending auth situation and told her we would update her once we knew more. * Alhaji Deleon LPN - 01/17/2024 1:24 PM EDT Patient updated that still waiting on insurance auth to transfer to swing, this nurse informed thatsocial work has reached out to [employer] to see progress on auth. Will update patient when auth comes through * Med Cooper PTA - 01/17/2024 10:01 AM EDT 01/17/24 0830 Time In/Out Time In 0830 [...] Pt states symptoms subsiding while resting in b edside chair. MaxA x2 for repositioning pt further [...] standing to FWW with Christina x1 and SUPERVISOR ELECTRIC MOTOR TESTING providing pt with pericare and placing new brief and purewick catheter. Pt then ambulated approx 8ft out of bathroom and states that she would need the chair placed behind her d/t fatigue. Chair placed behind pt and pt transfered to seated position. MAxA x2 for repositoining pt further back into chair. SCD placed on L LE and ice pack applied to L hip.[place] rolled placed on lateral side of L LE to promote proper positoining to follow global hip precau tions. Pt states feeling very comfortable in this position. Call light left within reach at end of therapy session. Transfer Skill: Sit To Stand, Rehab Eval [place] (Sit-Stand Transfers) minimum assist (75% patient effort) Physical Assist/Nonphysical Assist: Sit/Stand 1 person assist Weight-Bearing Restrictions: Sit/Stand toe touch weight-bearing Assistive Device For Transfer: Sit/Stand 2 wheeled walker Gait Skills, PT Eval Level of [place]: Gait minimum assist (75% patients effort) Physical Assist/Nonphysical Assist: Gait 1 person assist Weight-Bearing Restrictions: Gait toe touch weight-bearing Assistive Device For Transfer: Gait 2 wheeled walker Gait Distance (25ft, 10ft, 8ft) Stair Negotiation [place] Level: Stair Negotiation unable to assess Plan Plan for next visit Cont per POC Maintain frequency yes * Kimber Woo, BALER OPERATOR - 01/16/2024 10:30 AM EDT 01/16/24 0939 Time In/Out Time In 0939 [...] DVPRS (Defense and Veterans Pain Rating Scale) (Adult- Cognitively Intact) DVPRS (Defense and Veterans Pain Rating [...] be seated. Patient refusing to attempt standing orwalking again due to pain in R foot. Patient requires mod A x 2 to scoot back into chair for properpositioning. Completes L ankle pumps x 20 reps + RLE ther ex: heel slides, QS, SAQ hip abd x 15-20 reps each, min vc for form. Patient positioned with BLE elevated, SCDs placed on each leg, call light in reach, cold pack applied to LLE for decr pain. Transfer Skill: Sit To Stand, Rehab Eval [place] (Sit-Stand Transfers) moderate assist (50% patient effort) Physical Assist/Nonphysical Assist: Sit/Stand 1 person assist Weight-Bearing Restrictions: Sit/Stand toe touch weight-bearing Assistive Device For Transfer: Sit/Stand 2 wheeled walker Gait Skills, PT Eval Level of [place]: Gait (Patient refuses to attempt due to incr pain in R foot) Plan Plan for next visit Plan for transfers, gait, ther ex Maintain frequency yes * Negar Zach, OT - 01/15/2024 1:59 PM EDT 01/15/24 1310 Time In/Out Time In 1310 [...] stretches to decrease pain. Pt completed 1x12 AAROMshoulder flexion, abductions, and diagonal. Pt completed 1x10 distal strengthening with 2lb weight,initial demo then good carryover. Pt reports understanding [...] time preferred Lower Body Dressing Level of [place] (declned to complete) Clinical Impression Co-evaluation/co-treatment performed? No simultaneous skilled care performed Patient Instruction/Education comments continued education to ensure safe ADL participation and functional transfers; HEP Therapy Frequency 6 times a week (frequency change due to patient making good progress towards goals and awaiting placement for rehab prior to dc home) Therapist Information License # [id number] * Kimber Amna, BALER OPERATOR - 01/15/2024 10:56 AM EDT 01/15/24 0955 Time In/Out Time In 0955 Time Out 1054 Total Visit Time 59 minutes Subjective RN Approved Intervention as tolerated Existing Precautions/Restrictions fall;hip Subjective Reports patient reporting she feels okay now at rest but whenever she moves she has incrpain and spasms in her left leg. patient [...] DVPRS (Defense and Veterans Pain Rating Scale) (Adult- Cognitively Intact) DVPRS (Defense and Veterans Pain Rating [...] support, TTWB on LLE, incr BUE WB onFWW, significantly slow gait speed with standing rest [...] Transfer Skill: Sit To Stand, Rehab Eval [place] (Sit-Stand Transfers) minimum assist (75% patient effort) Physical Assist/Nonphysical Assist: Sit/Stand 1 person assist Weight-Bearing Restrictions: Sit/Stand toe touch weight-bearing Assistive Device For Transfer: Sit/Stand 2 wheeled walker Gait Skills, PT Eval Level of Wasatch: Gait minimum assist (75% patients effort) Physical [...] on global hip precautions Maintain frequency yes * MATT Zamora - 01/14/2024 12:07 PM EDT TURF AND GROUNDS SUPERVISOR spoke with [facility]. Insurance authorization still pending. TURF AND GROUNDS SUPERVISOR met with patient and son, questions answered. TURF AND GROUNDS SUPERVISOR to follow. * Med Cooper PTA - 01/14/2024 10:29 AM EDT 01/14/24 0830 Time In/Out Time In 0830 [...] upright position. Pt then began working on gaitwith TTWB on L LE and then pt stating that she would like to go into bathroom and try to sit on commode. Pt ambulated apprx 10 ft with Christina x1 and VCs for proper sequencing with pt managing TTWB on LLE. Pt required multiple short standing rest breaks d/t UE fatigue. Pt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 Procedures XR HIP WITH PELVIS LEFT Ave Mackey APRN-CNP [address] [place] [address] Referral IDStatusReasonStart DateExpiration DateVisits RequestedVisits [id number] Request/[id number] Care Teams (unrecognized sec tion and content) Team MemberRelationshipSpecialtyStart DateEnd Date Truman Boo Jr., DO [address] [place], [place] [id number] PCP - GeneralOrthopaedic Surgery11/04/23Team MemberRelationshipSpecialtyStart DateEnd Date Truman Boo Jr., DO [address] [facility] [address] [place] [address] PCP - GeneralOrthopaedic Surgery/Team MemberRelationshipSpecialty Start DateEnd Date Tian Kuhn, DO [address] [place] [address] PCP - GeneralFamily Medicine12/03/23Team MemberRelationshipSpecialtyStart DateEnd Date Tian Kuhn, DO [address] [place] [address] PCP - GeneralFamily Medicine12/03/23Team MemberRelationshipSpecialtyStart DateEnd Date Tian Kuhn, DO [address] [place] [address] PCP - GeneralFamily Medicine12/03/23Team MemberRelationshipSpecialtyStart DateEnd Date Tian Kuhn, DO [address] [place] [address] PCP - GeneralFamily Medicine12/03/23Team MemberRelationshipSpecialtyStart DateEnd Date Tian Kuhn, DO [address] [place] [address] PCP - GeneralFamily Medicine12/03/23Team MemberRelationshipSpecialtyStart DateEnd Date Tian Kuhn, DO [address] [place] [address] [facility] - [facility]12/03/23Team MemberRelationshipSpecialtyStart DateEnd Date Tian Kuhn DO [address] [place] [address] PCP - [facility]12/03/23Team MemberRelationshipSpecialtyStart DateEnd Date Tian Kuhn DO [address] [place] [address] PCP - [facility]12/03/23 Team Status: Active Member Role Status Dates Samuel Rivas DO Attending Provider Active Sta rt: May 01, 2024 End: May 02ANNA Connoreferring ProviderActiveStart: May 01, 2024 End: May 02, 2024 Team Status: Inactive Member Role Status Dates Tony Casas DO Attending Provider Active S tart: July 18, 2024 End: July 18, 2024Team MemberRelationshipSpecialtyStart DateEnd Date Tian Kuhn MD [address] [place] [address] Referring PhysicianOrthopaedic Surgery11/03/23 Scheduled Active and Recently Administ ered Medications (unrecognized section and content) Medication Order//09/2023 Allopurinol (ZYLOPRIM) tablet 100 mg 100 mg, Oral, DAILY, First dose on Wed01/12/24 at 0900, Until Discontinued * 0815 (Given - Provider: Merry Goodwin RN) * 0919 (Given - Provider: Amairani Lim RN) * 09 (Given - Provider: Irene Alejandro LPN) apixaban (ELIQUIS) tablet 2.5 mg (CANCELED) 2.5 mg, Oral, EVERY 12 HOURS, First dose on Wed01/12/24 at 0900, Until Discontinued, Start in AM day after surgery, Indications: Venous Thromboembolism, Post-op/Post-Proc * 0815 (Given - Provider: Merry Goodwin RN) apixaban (ELIQUIS) tablet 5 mg 5 mg, Oral, EVERY 12 HOURS, First dose on Wed01/17/24 at 2100, Until Discontinued, Due to the rapid onset of action of apixaban, no overlap is needed with other anticoagulants (e.g. enoxaparin, heparin)., Indications: Venous Thromboembolism * 2231 (Given - Provider: Fernanda Cantor RN) * 0920 (Given - Provider: Amairani Lim, RN) * 2237 (Given - Provider: Ольга Morales RN) * 0944 (Given - Provider: Ada Arteaga RN) ceFAZolin (ANCEF) 2 g in dextrose 100 mL premix IVPB (COMPLETED) 2 g, Intravenous, Administer over 30 Minutes, EVERY 8 HOURS NON-STANDARD, 19 doses, First dose on Wed01/11/24 at 2300, Last dose on Wed01/17/24 at 2300, Post-op/Post-Proc * 0633 ($$New Bag$$ - Provider: Angelita Pepe RN) * 1110 ([employer] - Provider: Merry Goodwin RN) * 1640 ($$New Bag$$ - Provider: Merry Goodwin RN) * 2231 ($$New Bag$$ - Provider: Fernanda Cantor RN) Cyclobenzaprine (FLEXERIL) tablet 5 mg 5 mg, Oral, 2 TIMES DAILY, First dose on Wed01/12/24 at 0915, Until Discontinued * 0815 (Given - Provider: Merry Goodwin RN) * 1640 (Given - Provider: Merry Goodwin RN) * 0920 (Given - Provider: Amiarani Lim, MARY) * 1614 (Given - Provider: Amairani Lim RN) * 0903 (Given - Provider: Irene Alejandro LPN) Docusate (COLACE) capsule 100 mg 100 mg, Oral, 2 TIMES DAILY, First dose on Wed01/11/24 at 1845, Until Discontinued, Post-op/Post-Proc * 0815 (Given - Provider: Merry Goodwin RN) * 1640 (Given - Provider: Merry Goodwin RN) * 0919 (Given - Provider: Amairani Lim RN) * 1614 (Given - Provider: Amairani Lim RN) * 0905 (Given - Provider: Irene Alejandro LPN) Loratadine (CLARITIN) tablet 10 mg 10 mg, Oral, DAILY, First dose on Wed01/19/24 at 1030, Until Discontinued * 1030 (Given - Provider: Irene Alejandro LPN) Pantoprazole (PROTONIX) tablet DR 40 mg 40 mg, Oral, DAILY, First dose on Wed01/12/24 at 0900, Until Discontinued, Indications: Continuation of Home Therapy, Inpt Stress Ulcer Prophylaxis * 0815 (Given - Provider: Merry Goodwin RN) * 0920 (Given - Provider: Amairani Lim RN) * 0902 (Given - Provider: Irene Alejandro LPN) Potassium chloride (K-DUR) tablet ER 20 mEq (COMPLETED) 20 mEq, Oral, ONCE, 1 dose, On Wed01/17/24 at 1800, Swallow tablets whole; do not crush, chew, or suck on tablet. Tablet may also be broken in half and each half swallowed separately. * 1755 (Given - Provider: Merry Goodwin RN) Tolterodine (DETROL-LA) capsule XL 4 mg 4 mg, Oral, DAILY, First dose on Wed01/12/24 at 0900, Until Discontinued, Swallow the extended-release capsule whole. Do not crush, break, or chew it. * 0815 (Given - Provider: Merry Goodwin RN) * 0919 (Given - Provider: Amairani Lim RN) * 0903 (Given - Provider: Irene Alejandro LPN) Medication Order01/16///09/2023 Sodium chloride 0.9% IV solution Intravenous, at 75 mL/hr, CONTINUOUS, Starting on Wed01/11/24 at 1845, Until Wed01/19/24 at 1423, Convert IV to PRN adapter post op day 1 if adequate oral intake, Post-op/Post-Proc * 0635 ($$New Bag$$ - Provider: Angelita Pepe RN) * 1111 ([employer] - Provider: Merry Goodwin RN) * 1643 ([employer] - Provider: Merry Goodwin RN) * 0533 ($$New Bag$$ - Provider: Fernanda Cantor RN) * 0807 (Stopped - Provider: Amairani Lim RN) Medication Order//09/2023 Acetaminophen (TYLENOL) tablet 650 mg 650 mg, Oral, EVERY 4 HOURS NEEDED, Starting on Wed01/11/24 at 1831, Until Wed01/19/24 at 1423, Mild Pain, Maximum dose of acetaminophen is 4000 mg from all sources in 24 hours, Post-op/Post-Proc bisacodyl (DULCOLAX) suppository 10 mg 10 mg, Rectal, DAILY NEEDED, Starting on Wed01/11/24 at 1831, Until Wed01/19/24 at 1423, constipation, Post-op/Post-Proc hydroCODone-acetaminophen (NORCO) 5-325 MG per tablet 1-2 tablet 1-2 tablet, Oral, EVERY 4 HOURS NEEDED, Starting on Maggie 01/13/24 at 1029, Until Wed01/19/24 at 1423, Severe Pain, Post-op/Post-Proc * 0643 (Given - Provider: Angelita Pepe RN) * 1109 (Given - Provider: Merry Goodwin RN) * 1758 (Given - Provider: Merry Goodwin RN) * 2235 (Given - Provider: Fernanda Cantor RN) * 0533 (Given - Provider: Fernanda Cantor RN) * 0035 (Given - Provider: Ольга Morales RN) * 1033 (Given - Provider: Irene Alejandro LPN) HYDROmorphone (DILAUDID) injection 0.5 mg 0.5 mg, Intravenous, EVERY 4 HOURS NEEDED, Starting on Wed01/11/24 at 1831, Until Wed01/19/24 at 1423, Severe Pain, Post-op/Post-Proc Ondansetron 4mg/2ml (ZOFRAN) injection 4 mg 4 mg, Intravenous, EVERY 4 HOURS NEEDED, Starting on Wed01/11/24 at 1831, Until Wed01/19/24 at 1423, Nausea / Vomiting, Post-op/Post-Proc * 0920 (Given - Provider: Amairani Lim, RN) * 0943 (Given - Provider: Ada Arteaga, MARY) senna-docusate (SENOKOT-S) 8.6-50 MG per tablet 2 tablet 2 tablet, Oral, 2 TIMES DAILY NEEDED, Starting on Wed01/11/24 at 1831, Until Wed01/19/24 at 1423,constipation, Post-op/Post-Proc traMADol (ULTRAM) tablet 50 mg 50 mg, Oral, EVERY 6 HOURS NEEDED, Starting on Wed01/12/24 at 2208, Until Wed01/19/24 at 1423, Moderate Pain * 1945 (Given - Provider: Fernanda Cantor RN) * 0920 (Given - Provider: Amairani Lim RN) * 1614 (Given - Provider: Amairani Lim, RN) Zolpidem (AMBIEN) tablet 5 mg 5 mg, Oral, DAILY AT BEDTIME NEEDED, Starting on Wed01/11/24 at 1831, Until Wed01/19/24 at 1423, Sleep, Post-op/Post-Proc * 2231 (Given - Provider: Fernanda Cantor RN) * 0035 (Given - Provider: Ольга Morales RN) Medication Order02/08//// Allopurinol (ZYLOPRIM) tablet 100 mg 100 mg, Oral, DAILY, First dose (after last modification) on Wed01/20/24 at 0900, Until Discontinued * 0838 (Given - Provider: Anisa Newell LPN) * 0842 (Given - Provider: Ramona Mckeon RN) * 0806 (Given - Provider: Cherri Masterson LPN) apixaban (ELIQUIS) tablet 5 mg 5 mg, Oral, EVERY 12 HOURS, First dose (after last modification) on Wed01/19/24 at 2100, Until Discontinued, Due to the rapid onset of action of apixaban, no overlap is needed with other anticoagulants (e.g. enoxaparin, heparin)., Indications: Venous Thromboembolism * 0838 (Given - Provider: Anisa Newell LPN) * 2030 (Given - Provider: Kimber Sanchez LPN) * 0842 (Given - Provider: Ramona Mckeon RN) * 2113 (Given - Provider: Patricia Malin LPN) * 0805 (Given - Provider: Cherri Masterson LPN) clotrimazole-betamethasone (LOTRISONE) 1-0.05 % cream Topical, 2 TIMES DAILY, First dose on Wed02/09/24 at 2015, Until Discontinued * 2216 (Not Given - Provider: Kimber Sanchez LPN - Reason: Other - Comment: PENDING CONSULT FROM WOUNDCARE) * 0843 (Not Given - Provider: Ramona Mckeon RN - Reason: Other - Comment: awaiting wound consultto okay cream) * 162 (Given - Provider: Ramona Mckeon RN) * 0809 (Not Given - Provider: Cherir Masterson LPN - Reason: Patient/family refused) Cyclobenzaprine (FLEXERIL) tablet 5 mg 5 mg, Oral, EVERY 12 HOURS, First dose (after last modification) on Wed01/22/24 at 2100, Until Discontinued * 0838 (Given - Provider: Anisa Newell LPN) * 2029 (Given - Provider: Kimber Sanchez LPN) * 0842 (Given - Provider: Ramona Mckeon RN) * 2111 (Given - Provider: Patricia Malin LPN) * 0805 (Given - Provider: Cherri Masterson LPN) Docusate (COLACE) capsule 100 mg 100 mg, Oral, EVERY 12 HOURS, First dose (after last modification) on 01/22/24 at 2100, Until Discontinued * 0838 (Given - Provider: Anisa Newell LPN) * 2029 (Given - Provider: Kimber Sanchez LPN) * 0842 (Given - Provider: Ramona Mckeon RN) * 2116 (Not Given - Provider: Patricia Malin LPN - Reason: Patient/family refused) * 0807 (Not Given - Provider: Cherri Masterson LPN - Reason: Patient/family refused - Comment: Patient refused) ferrous sulfate tablet 325 mg 325 mg, Oral, DAILY, First dose on Wed01/21/24 at 1330, Until Discontinued * 0838 (Given - Provider: Anisa Newell LPN) * 0842 (Given - Provider: Ramona Mckeon RN) * 0805 (Given - Provider: Cherri Masterson LPN) fluconazole (DIFLUCAN) tablet 150 mg 150 mg, Oral, DAILY, First dose on Wed02/09/24 at 2015, Until Discontinued, Swallow tablet whole; do not crush, split or chew. Contact pharmacy if alternate route or dose is needed. * 2035 (Given - Provider: Kimber Sanchez LPN) * 0841 (Given - Provider: Ramona Mckeon, MARY) * 0805 (Given - Provider: Cherri Masterson LPN) Lisinopril (PRINIVIL) tablet 5 mg 5 mg, Oral, DAILY, First dose on Wed01/30/24 at 0900, Until Discontinued, Hold if SBP < 100 * 0838 (Given - Provider: Anisa Newell LPN) * 0842 (Given - Provider: Ramona Mckeon, MARY) * 0805 (Given - Provider: Cherri Masterson LPN) multivitamin tablet 1 tablet 1 tablet, Oral, DAILY, First dose on Wed01/20/24 at 0900, Until Discontinued * 0838 (Given - Provider: Anisa Newell LPN) * 0842 (Given - Provider: Ramona cMkeon, MARY) * 0806 (Given - Provider: Cherri Masterson LPN) nystatin (MYCOSTATIN) cream 1 Application (CANCELED) 1 Application, Topical, EVERY 12 HOURS, First dose (after last reorder) on Wed02/08/24 at 1045, Until Discontinued, Apply to abd fold, B/L groins, under B/L breasts * 0839 (Given - Provider: Anisa Newell LPN) Pantoprazole (PROTONIX) tablet DR 40 mg 40 mg, Oral, DAILY BEFORE BREAKFAST, First dose (after last modification) on Wed02/06/24 at 0600, Until Discontinued, Indications: Continuation of Home Therapy, Inpt Stress Ulcer Prophylaxis * 0531 (Given - Provider: Kimber aSnchez LPN) * 0611 (Given - Provider: Inge Medeiros, MARY) * 0522 (Given - Provider: Patricia Malin LPN) Polyethylene glycol (MIRALAX) packet 17 g 17 g, Oral, EVERY 12 HOURS, First dose (after last modification) on Wed01/22/24 at 0900, Until Discontinued * 0834 (Not Given - Provider: Anisa Newell LPN - Reason: Patient/family refused) * 2030 (Given - Provider: Kimber Sanchez LPN) * 0841 (Given - Provider: Ramona Mckeon, MARY) * 2112 (Given - Provider: Patricia Malin LPN) * 0808 (Not Given - Provider: Cherri Masterson LPN - Reason: Patient/family refused - Comment: Patient refused) Povidone-Iodine (PROFEND) 10 % swab 1 Application 1 Application, Topical, DAILY AT BEDTIME, First dose on Wed02/03/24 at 2100, Until Discontinued, Wash incision with dial antibacterial soap prior to application. Apply to left hip incision daily at bedtime per Dr Moreno order Item stocked in SPD * 2227 (Given - Provider: Kimber Sanchez LPN) * 2117 (Given - Provider: Patricia Malin LPN - Comment: barcode does not scan) senna-docusate (SENOKOT-S) 8.6-50 MG per tablet 2 tablet 2 tablet, Oral, EVERY 12 HOURS, First dose (after last modification) on Wed01/21/24 at 0900, Until Discontinued * 0834 (Not Given - Provider: Anisa Newell LPN - Reason: Patient/family refused) * 2021 (Not Given - Provider: Kimber Sanchez LPN - Reason: Patient/family refused) * 0842 (Not Given - Provider: Ramona Mckeon RN - Reason: Patient/family refused) * 2116 (Not Given - Provider: Patricia Malin LPN - Reason: Patient/family refused) * 0808 (Not Given - Provider: Cherri Masterson LPN - Reason: Patient/family refused - Comment: Patient refused) Tolterodine (DETROL-LA) capsule XL 4 mg 4 mg, Oral, DAILY, First dose (after last modification) on Wed01/20/24 at 0900, Until Discontinued, Swallow the extended-release capsule whole. Do not crush, break, or chew it. * 0838 (Given - Provider: Anisa Newell LPN) * 0841 (Given - Provider: Ramona Mckeon, MARY) * 0805 (Given - Provider: Cherri Masterson LPN) Medication Order02/08/// Acetaminophen (TYLENOL) tablet 650 mg 650 mg, [...] on Wed01/19/24 at 1752, Until Wed02/11/24 at 1545,Moderate Pain, May have prior to therapy * 1059 (Given - Provider: Anisa Newell LPN) * 0615 (Given - Provider: Inge Medeiros, RN) * 2004 (Given - Provider: Patricia Malin LPN) * 1252 (Given - Provider: Carmine Alonso, MARY) hydroCODone-acetaminophen (NORCO) 5-325 MG per tablet 2 tablet 2 tablet, Oral, EVERY 4 HOURS NEEDED, Starting on Wed01/19/24 at 1752, Until Wed02/11/24 at 1545,Severe Pain, May have prior to therapy * 2226 (Given - Provider: Kimber Sanchez LPN) * 2358 (Given - Provider: Patricia Malin LPN) [...] at 1709, Until Wed02/11/24 at 1545, Sleep * 2226 (Given - Provider: Kimber Sanchez LPN) * 2359 (Given - Provider: Patricia Malin LPN) Medication Order02/08//// Allopurinol (ZYLOPRIM) tablet 100 mg 100 mg, Oral, DAILY, First dose (after last modification) on Maggie 01/20/24 at 0900, Until Discontinued * 0838 (Given - Provider: Anisa Newell LPN) * 0842 (Given - Provider: Ramona Mckeon RN) * 0806 (Given - Provider: Cherri Masterson LPN) apixaban (ELIQUIS) tablet 5 mg 5 mg, Oral, EVERY 12 HOURS, First dose (after last modification) on Wed01/19/24 at 2100, Until Discontinued, Due to the rapid onset of action of apixaban, no overlap is needed with other anticoagulants (e.g. enoxaparin, heparin)., Indications: Venous Thromboembolism * 0838 (Given - Provider: Anisa Newell LPN) * 2030 (Given - Provider: Kimber Sanchez LPN) * 0842 (Given - Provider: Ramona Mckeon RN) * 2114 (Given - Provider: Patricia Malin LPN) * 0805 (Given - Provider: Cherri Masterson LPN) clotrimazole-betamethasone (LOTRISONE) 1-0.05 % cream Topical, 2 TIMES DAILY, First dose on Wed02/09/24 at 2015, Until Discontinued * 2216 (Not Given - Provider: Kimber Sanchez LPN - Reason: Other - Comment: PENDING CONSULT FROM WOUNDCARE) * 0843 (Not Given - Provider: Ramona Mckeon RN - Reason: Other - Comment: awaiting wound consultto okay cream) * 1621 (Given - Provider: Ramona Mckeon, MARY) * 0809 (Not Given - Provider: Cherri Masterson LPN - Reason: Patient/family refused) Cyclobenzaprine (FLEXERIL) tablet 5 mg 5 mg, Oral, EVERY 12 HOURS, First dose (after last modification) on Wed01/22/24 at 2100, Until Discontinued * 0838 (Given - Provider: Anisa Newell LPN) * 2030 (Given - Provider: Kimber Sanchez LPN) * 0842 (Given - Provider: Ramona Mckeon RN) * 2111 (Given - Provider: Patricia Malin LPN) * 0805 (Given - Provider: Cherri Masterson LPN) Docusate (COLACE) capsule 100 mg 100 mg, Oral, EVERY 12 HOURS, First dose (after last modification) on Wed01/22/24 at 2100, Until Discontinued * 0838 (Given - Provider: Anisa Newell LPN) * 2029 (Given - Provider: Kimber Sanchez LPN) * 0842 (Given - Provider: Ramona Mckeon RN) * 2116 (Not Given - Provider: Patricia Malin LPN - Reason: Patient/family refused) * 0807 (Not Given - Provider: Cherri Masterson LPN - Reason: Patient/family refused - Comment: Patient refused) ferrous sulfate tablet 325 mg 325 mg, Oral, DAILY, First dose on Wed01/21/24 at 1330, Until Discontinued * 0838 (Given - Provider: Anisa Newell LPN) * 0842 (Given - Provider: Ramona Mckeon RN) * 0805 (Given - Provider: Cherri Masterson LPN) fluconazole (DIFLUCAN) tablet 150 mg 150 mg, Oral, DAILY, First dose on Wed02/09/24 at 2015, Until Discontinued, Swallow tablet whole; do not crush, split or chew. Contact pharmacy if alternate route or dose is needed. * 2035 (Given - Provider: Kimber Sanchez LPN) * 0841 (Given - Provider: Ramona Mckeon RN) * 0805 (Given - Provider: Cherri Masterson LPN) Lisinopril (PRINIVIL) tablet 5 mg 5 mg, Oral, DAILY, First dose on Wed01/30/24 at 0900, Until Discontinued, Hold if SBP < 100 * 0838 (Given - Provider: Anisa Newell LPN) * 0842 (Given - Provider: Ramona Mckeon RN) * 0805 (Given - Provider: Cherri Masterson LPN) multivitamin tablet 1 tablet 1 tablet, Oral, DAILY, First dose on Wed01/20/24 at 0900, Until Discontinued * 0838 (Given - Provider: Anisa Newell LPN) * 0842 (Given - Provider: Ramona Mckeon RN) * 0806 (Given - Provider: Cherri Masterson LPN) nystatin (MYCOSTATIN) cream 1 Application (CANCELED) 1 Application, Topical, EVERY 12 HOURS, First dose (after last reorder) on Wed02/08/24 at 1045, Until Discontinued, Apply to abd fold, B/L groins, under B/L breasts * 0839 (Given - Provider: Anisa Newell LPN) Pantoprazole (PROTONIX) tablet DR 40 mg 40 mg, Oral, DAILY BEFORE BREAKFAST, First dose (after last modification) on Wed02/06/24 at 0600, Until Discontinued, Indications: Continuation of Home Therapy, Inpt Stress Ulcer Prophylaxis * 0531 (Given - Provider: Kimber Sanchez LPN) * 0611 (Given - Provider: Inge Medeiros, MARY) * 0522 (Given - Provider: Patricia Malin LPN) Polyethylene glycol (MIRALAX) packet 17 g 17 g, Oral, EVERY 12 HOURS, First dose (after last modification) on Wed01/22/24 at 0900, Until Discontinued * 0834 (Not Given - Provider: Anisa Newell LPN - Reason: Patient/family refused) * 2030 (Given - Provider: Kimber Sanchez LPN) * 0841 (Given - Provider: Ramona Mckeon, MARY) * 2113 (Given - Provider: Patricia Malin LPN) * 0808 (Not Given - Provider: Cherri Masterson LPN - Reason: Patient/family refused - Comment: Patient refused) Povidone-Iodine (PROFEND) 10 % swab 1 Application 1 Application, Topical, DAILY AT BEDTIME, First dose on Wed02/03/24 at 2100, Until Discontinued, Wash incision with dial antibacterial soap prior to application. Apply to left hip incision daily at bedtime per Dr Moreno order Item stocked in SPD * 2228 (Given - Provider: Kimber Sanchez LPN) * 2118 (Given - Provider: Patricia Malin LPN - Comment: barcode does not scan) senna-docusate (SENOKOT-S) 8.6-50 MG per tablet 2 tablet 2 tablet, Oral, EVERY 12 HOURS, First dose (after last modification) on Wed01/21/24 at 0900, Until Discontinued * 0834 (Not Given - Provider: Anisa Newell LPN - Reason: Patient/family refused) * 2021 (Not Given - Provider: Kimber Sanchez LPN - Reason: Patient/family refused) * 0842 (Not Given - Provider: Ramona Mckeon RN - Reason: Patient/family refused) * 2116 (Not Given - Provider: Patricia Malin LPN - Reason: Patient/family refused) * 0808 (Not Given - Provider: Cherri Masterson LPN - Reason: Patient/family refused - Comment: Patient refused) Tolterodine (DETROL-LA) capsule XL 4 mg 4 mg, Oral, DAILY, First dose (after last modification) on Maggie 01/20/24 at 0900, Until Discontinued, Swallow the extended-release capsule whole. Do not crush, break, or chew it. * 0838 (Given - Provider: Anisa Newell LPN) * 0841 (Given - Provider: Ramona Mckeon RN) * 0805 (Given - Provider: Cherri Masterson LPN) Medication Order02/08//// Acetaminophen (TYLENOL) tablet 650 mg 650 mg, [...] on Wed01/19/24 at 1752, Until Wed02/11/24 at 1545,Moderate Pain, May have prior to therapy * 1059 (Given - Provider: Anisa Newell LPN) * 0615 (Given - Provider: Inge Medeiros, MARY) * 2004 (Given - Provider: Patricia Malin LPN) * 1252 (Given - Provider: Carmine Alonso RN) hydroCODone-acetaminophen (NORCO) 5-325 MG per tablet 2 tablet 2 tablet, Oral, EVERY 4 HOURS NEEDED, Starting on Wed01/19/24 at 1752, Until Wed02/11/24 at 1545,Severe Pain, May have prior to therapy * 2226 (Given - Provider: Kimber Sanchez LPN) * 2358 (Given - Provider: Patricia Malin LPN) [...] at 1709, Until Wed02/11/24 at 1545, Sleep * 2226 (Given - Provider: Kimber Sanchez LPN) * 2359 (Given - Provider: Patricia Malin LPN) Goals [...] BE BASED ON THE PRIMARY CLINICAL RECORDS. [employer] provides no warranty or guarantee of the accuracy or completeness of information in this document.
[2025-06-02 10:45] LABS: Hematocrit 38.9 % (36.0-48.0); Hemoglobin 12.7 g/dL (12.0-16.0); Immature Granulocytes Abs Auto 0.03 10^3/uL (0.00-0.03); Immature Granulocytes Pct Auto 0.5 % (0.0-0.5); Lymphocytes Absolute Auto 1.3 10^3/uL (1.2-3.8); Mean Corpuscular HGB Conc 32.6 g/dL (29.9-35.2); Mean Corpuscular Hemoglobin 31.8 pg (26.7-34.0); Mean Corpuscular Volume 97.3 fL (81.0-99.0); Platelet Count 266 10^3/uL (150-450); Red Blood Count 4.00 10^6/uL (4.20-5.40); White Blood Count 6.1 10^3/uL (4.0-11.0)
[2025-06-02 10:49] LABS: Anion Gap 16.3; Blood Urea Nitrogen 28.0 mg/dL (7.0-18.0); Calcium 9.6 mg/dL (8.5-10.1); Carbon Dioxide 25.3 mmol/L (21.0-32.0); Chloride 104 mmol/L (98-107); Estimated GFR (African America 53 (>=60 mL/min/1.73m^2); Estimated GFR (Non-African Ame 44 (>=60 mL/min/1.73m^2); Glucose 119 mg/dL (74-106); Potassium 4.6 mmol/L (3.5-5.1); Sodium 141 mmol/L (136-145)
== END 2025-06-02 09:42 | disposition home or self-care (01) ==
LOC: LAB 09:41
PROVIDERS: PCP Family Medicine; Visit Provider Internal Medicine Cardiovascular Disease
DX: R94.39 Abnormal result of other cardiovascular function study (principal)
CPT/HCPCS: 36415; 80048; 85025